=== PATIENT | female | born 1950 | race Caucasian/White ===

== ENCOUNTER 2016-10-13 14:51 | Observation (INO) | payer OTHER ==
[~2016-10-13] VITALS: Ht 172.7 cm; Wt 105.4 kg
[~2016-10-13 14:51] MED LIST: ARIP2TAB3 PO; ASPI325T45 PO; ATOR80TA PO; CLC100X PO; CLON0.5T3 PO; FAMO40TA6 PO; GABA600T PO; GLC/500 PO; ISOS30TA3 PO; LAMO100T16 PO; LAMO25TA PO; LEVO88TA PO; LISI2.5T5 PO; LSX40 PO; METO50TA7 PO; MRPSR30 PO; OXYC-609 PO; POTA10TA32 PO; TRAZ100T29 PO; VENL150C PO; VENL75CA PO; VNTHFA/IN INH
[2016-10-13] MEDS ORDERED: SODIUM CHLORIDE 0.9% 1000ML 250 ML IV STA (15:02)
[2016-10-13] MEDS ORDERED: SODIUM CHLORIDE 0.9% 1000ML 1,000 ML IV STA (15:02)
[2016-10-13] MEDS ORDERED: ALUMINUM/MAGNESIUM SUSP 30 ML UDC PO STA (15:07)
[2016-10-13] MEDS ORDERED: ASPI81TA28 PO (15:27)
[2016-10-13] MEDS ORDERED: CANA1TAB PO (15:27)
[2016-10-13] MEDS ORDERED: DOCU-94 PO (15:27)
[2016-10-13] MEDS ORDERED: FURO40TA3 PO (15:27)
[2016-10-13] MEDS ORDERED: LAMO25TA PO (15:27)
--- NOTE | 2016-10-13 15:30 | EMERGENCY ROOM VISIT NOTE ---
History Report prepared by Sandra: Maryjane Garcia Under the Supervision of: Dr. Vincent Xiong M.D. First contact with patient: 14:58 Chief Complaint: CARDIAC ASSESSMENT Stated Complaint: NAUSEA,CHEST PAIN,DIZZINESS,LEFT ARM PAIN History of Present Illness The patient is a 66 year old female who presents to the Emergency Room for a cardiac assessment. The patient states that she started feeling unwell yesterday. She became nauseated and lightheaded and has been feeling generally weak. She reports a headache as well. About 45 minutes ago she developed chest pain that radiates down her left arm. She describes her pain as achy and rates it as a 6/10 in severity. The patient denies any modifying factors. She has slight shortness of breath. The patient denies fever, vomiting, diarrhea, black or bloody stools, and recent trauma or injury. She has a significant cardiac history and states that her current pain feels similar to her previous cardiac issues. The patient has a history of reflux, but states that her pain does not feel like her typical reflux. She has not taken anything for her pain, but took a Zofran [employer]. She takes a daily aspirin, but denies any other blood thinners. The patient has a history of anxiety and states that she is feeling really anxious at this time. She takes 0.5mg of Klonopin BID for her anxiety and took it this morning. Source of History: patient Onset: 45 minutes [employer] Position: chest Symptom Intensity: 6/10 Quality: ache Timing: constant Modifying Factors (Relieving): anti-emetics Associated Symptoms: + SOB, + headache, + nausea, + numbness (/lightheaded) , No diarrhea, No fevers, No hematochezia, No melena, No vomiting Review of Systems See HPI for pertinent positives & negatives. A total of 10 systems reviewed and were otherwise negative. Past Medical & Surgical Medical Problems: (1) Bipolar disorder (2) Uzgoyjh-Lzwtt-Qvphq disease (3) Chest pain (4) Chronic back pain (5) Chronic nonalcoholic liver disease (6) Coronary artery disease (7) Deep venous thrombosis (8) Depression (9) Diabetes mellitus type 2 (10) Dyslipidemia (11) Essential hypertension (12) Gastroesophageal reflux disease (13) Hypothyroidism (14) Nausea (15) OCD (obsessive compulsive disorder) Surgical Problems: (1) H/O colonoscopy (2) History of back surgery (3) History of hysterectomy (4) Hx of CABG (5) Hx of cardiac cath (6) S/P appendectomy (7) S/P cholecystectomy (8) S/P CARLOS-BSO (9) S/P total knee arthroplasty Old medical records were reviewed. Nurse's notes were reviewed and I agree with. Family History Diabetes mellitus FHx: cancer FHx: gallbladder disease FHx: heart disease Hypertension Social History Smoking Status: Never Smoker Alcohol Use: none Drug Use: none Marital Status: Housing Status: lives alone Occupation Status: disabled Current/Historical Medications Scheduled Aripiprazole (Abilify), 2 MG PO DAILY Aspirin (Aspirin Ec), 81 MG PO DAILY Atorvastatin Calcium (Lipitor), 80 MG PO QPM Canagliflozin (Invokana), 100 MG PO DAILY Clonazepam (Klonopin), 0.5 MG PO BID Ergocalciferol (Vitamin D), 1 CAP PO WK Famotidine (Pepcid), 40 MG PO HS Gabapentin (Neurontin), 600 MG PO BID Isosorbide Mononitrate Ext Rel (Imdur Ext Rel), 30 MG PO QAM Lactulose (Encephalopathy) (Lactulose), 30 ML PO BID Lamotrigine (Lamictal), 100 MG PO QAM Lamotrigine (Lamictal), 25 MG PO QAM Levothyroxine Sodium (Synthroid), 88 MCG PO QAM Lisinopril (Lisinopril), 2.5 MG PO QAM Metformin Hcl (Glucophage), 500 MG PO BIDM Metoprolol Succ (Toprol Xl) (Toprol-Xl), 50 MG PO QAM Morphine Sulfate (Morphine Sulfate ER), 30 MG PO Q12 Nitroglycerin (Nitrostat), 1 TAB SL UD Omeprazole (Omeprazole), 1 TAB PO BID Trazodone Hcl (Trazodone), 150 MG PO HS Venlafaxine Hcl (Effexor Xr), 75 MG PO QAM Venlafaxine Hcl (Effexor Xr), 150 MG PO QAM Scheduled PRN Albuterol Hfa (Ventolin Hfa), 2 PUFFS INH QID PRN for SOB/Wheezing Dicyclomine HCl (Dicyclomine HCl), 1 CAP PO QID PRN for abdominal pain Furosemide (Lasix), 40 MG PO DAILY PRN for swelling Ondansetron Odt (Zofran Odt), 8 MG SL Q8 PRN for Nausea or Vomiting Oxycodone HCl (Oxycodone HCl), 5 MG PO Q6H PRN for severe pain Allergies Coded Allergies: Fentanyl (Verified Allergy, Unknown, ., 10/13/16) Zolpidem (Verified Adverse Reaction, Intermediate, confusion, 10/13/16) Methocarbamol (Verified Adverse Reaction, Mild, DELERIUM, 10/13/16) Propoxyphene (Verified Adverse Reaction, Mild, N&V, 10/13/16) Physical Exam Vital Signs Date Time Temp Pulse Resp B/P Pulse Ox O2 Delivery O2 Flow Rate FiO2 10/13/16 18:42 70 20 109/76 96 Room Air 10/13/16 16:55 71 20 128/64 96 Room Air 10/13/16 15:16 69 10/13/16 14:55 36.6 74 16 122/71 96 Room Air Physical Exam General: Well developed well nourished non-ill appearing older female in no acute distress, breathing comfortably on room air. Normal speech HEENT: Normal cephalic atraumatic. Pupils are equal round and reactive to light. Extraocular movements are intact. Oropharynx is pink with moist mucous membranes. No swelling of the mouth lips or tongue. Neck: Supple with a midline trachea. No meningeal signs or stiffness, no JVD or bruits. No Stridor. Chest: Clear to auscultation bilaterally. No wheezes or rhonchi. No increased work of breathing. Heart: regular rate and rhythm. Abdomen: Soft mild tenderness in the epigastric area, nondistended without rebound guarding or rigidity. Extremities: No cyanosis clubbing or edema. No calf tenderness or assymetry. Lower extremities have bilateral braces from CMT. Spine/Back. Non tender to palpation. No CVA tenderness Skin: Good turgor without rashes. Neurologic exam: Cranial nerves two through 12 are intact. Motor and sensation are intact and symmetrical throughout. Medical Decision & Procedures ER Provider Diagnostic Interpretation: A repeat ECG as interpreted by myself reveals a normal sinus rhythm at 69, no acute ischemic changes, no ectopy, no change from earlier ECG. Radiology results as stated below per my review and radiologist interpretation: CHEST ONE VIEW PORTABLE HISTORY: Atypical CHEST PAIN COMPARISON: Chest 02/04/2016. FINDINGS: Poststernotomy changes. The lungs are clear. Mild elevation of the right hemidiaphragm, unchanged. The heart is normal in size. No pleural effusions. No pneumothorax. No evidence for pulmonary edema. Cholecystectomy. IMPRESSION: No significant change compared to the prior study. No acute process. Electronically signed by: Marquez Lindsay M.D. 10/13/2016 4:11 PM Dictated Date/Time: 10/13/2016 4:10 PM Laboratory Results 10/13/16 15:30 Red Blood Count 4.99, Mean Corpuscular Volume 75.6, Mean Corpuscular Hemoglobin 24.2, Mean Corpuscular Hemoglobin Concent 32.1, Mean Platelet Volume 10.0, Neutrophils (%) (Auto) 53.6, Lymphocytes (%) (Auto) 32.6, Monocytes (%) (Auto) 8.4, Eosinophils (%) (Auto) 4.0, Basophils (%) (Auto) 0.9, Neutrophils # (Auto) 3.51, Lymphocytes # (Auto) 2.13, Monocytes # (Auto) 0.55, Eosinophils # (Auto) 0.26, Basophils # (Auto) 0.06 10/13/16 15:30 Test 10/13/16 15:30 10/13/16 15:33 White Blood Count 6.54 K/uL (4.8-10.8) Red Blood Count 4.99 M/uL (4.2-5.4) Hemoglobin 12.1 g/dL (12.0-16.0) Hematocrit 37.7 % (37-47) Mean Corpuscular Volume 75.6 fL (80-100) Mean Corpuscular Hemoglobin 24.2 pg (25-34) Mean Corpuscular Hemoglobin Concent 32.1 g/dl (32-36) Platelet Count 123 K/uL (130-400) Mean Platelet Volume 10.0 fL (7.4-10.4) Neutrophils (%) (Auto) 53.6 % Lymphocytes (%) (Auto) 32.6 % Monocytes (%) (Auto) 8.4 % Eosinophils (%) (Auto) 4.0 % Basophils (%) (Auto) 0.9 % Neutrophils # (Auto) 3.51 K/uL (1.4-6.5) Lymphocytes # (Auto) 2.13 K/uL (1.2-3.4) Monocytes # (Auto) 0.55 K/uL (0.11-0.59) Eosinophils # (Auto) 0.26 K/uL (0-0.5) Basophils # (Auto) 0.06 K/uL (0-0.2) RDW Standard Deviation 44.2 fL (36.4-46.3) RDW Coefficient of Variation 16.0 % (11.5-14.5) Immature Granulocyte % (Auto) 0.5 % Immature Granulocyte # (Auto) 0.03 K/uL (0.00-0.02) Prothrombin Time 11.3 SECONDS (9.0-12.0) Prothromb Time International Ratio 1.1 (0.9-1.1) Activated Partial Thromboplast Time 24.2 SECONDS (21.0-31.0) Partial Thromboplastin Ratio 0.9 Anion Gap 12.0 mmol/L (3-11) Est Creatinine Clear Calc Drug Dose 79.3 ml/min Estimated GFR () 77.7 Estimated GFR (Non- 67.1 BUN/Creatinine Ratio 14.4 (10-20) Calcium Level 8.6 mg/dl (8.5-10.1) Total Bilirubin 0.5 mg/dl (0.2-1) Direct Bilirubin mg/dl (0-0.2) Aspartate Amino Transf (AST/SGOT) 28 U/L (15-37) Alanine Aminotransferase (ALT/SGPT) 19 U/L (12-78) Alkaline Phosphatase 95 U/L (45-117) Total Protein 7.0 gm/dl (6.4-8.2) Albumin 3.6 gm/dl (3.4-5.0) Lipase 526 U/L (73-393) Chemistry Specimen Hemolysis Bedside Troponin I 0.000 ng/ml (0-0.045) Laboratory studies as stated above per my review. Medications Administered Medications (Trade) Dose Ordered Sig/Natalya Route Start Time Stop Time Status Last Admin Dose Admin Sodium Chloride 250 ml @ 999 mls/hr Q16M STAT IV 10/13/16 15:02 10/13/16 15:17 DC 10/13/16 15:19 999 MLS/HR Sodium Chloride (Nss 1000ml) 1,000 ml @ 100 mls/hr Q10H STAT IV 10/13/16 15:02 10/13/16 21:05 DC 10/13/16 15:19 100 MLS/HR Al Hydroxide/Mg Hydroxide (Maalox Susp) 30 ml NOW STAT PO 10/13/16 15:07 10/13/16 15:09 DC 10/13/16 15:19 30 ML Ondansetron HCl (Zofran Inj) 4 mg NOW STAT IV 10/13/16 16:39 10/13/16 16:40 DC 10/13/16 16:50 4 MG Nitroglycerin (Nitrostat Tab) 0.4 mg NOW STAT SL 10/13/16 16:59 10/13/16 17:00 DC 10/13/16 17:14 0.4 MG ECG Indication: chest pain Rate (beats per minute): 68 Rhythm: normal sinus Findings: no acute ischemic change, no ectopy Comparison ECG Date: 02/05/16 Change: no significant change ED Course 1458: Past medical records reviewed. The patient was evaluated in room B2, and a complete history and physical examination were performed. 1502: NSS 1000 ml @ 100 mls/hr IV, NSS 250 ml @ 999 mls/hr IV 1507: Maalox Susp 30 ml PO 1545: I reassessed the patient at this time. She is feeling better. 1639: Zofran 4 mg IV 1656: I reassessed the patient at this time. She is still having 5/10 chest pain with no change with the GI cocktail. I ordered nitro and a repeat ECG. She took her aspirin already today. 1659: Nitroglycerin 0.4 mg SL 1725: The patient is feeling better after nitro. I discussed the results and treatment plan with the patient. I answered all pertaining questions that she had. She expressed understanding and verbalized agreement. 1732: I spoke with Dr. Mo. We discussed the patients results and treatment plan. The patient will be evaluated by the [facility] for further management. Medical Decision Differential diagnoses includes acute coronary syndrome, GERD, musculoskeletal, electrolyte or metabolic abnormality. This patient comes in as described above. She has some vague symptoms of feeling dizzy. She also has some chest pain. She is feeling a lot better. EKG was obtained does not show acute coronary syndrome or arrhythmia. Chest x- ray was unremarkable. She has no acute electrolyte or metabolic abnormalities. She was given Maalox. She appears comfortable. Her troponin is not elevated. I did reassess her after the Maalox she had no change she did not appear uncomfortable however. She did take aspirin earlier today prior to arrival and was thus not given another aspirin. I did give her nitroglycerin subungual 1 and her pain seemed to dissipate completely. A second EKG was obtained and does not show any acute coronary syndrome or any acute changes compared to EKG #1. Chest x-ray does not show congestive heart failure pneumonia or pneumothorax. She's had no acute electrolyte or metabolic abnormalities. She does have a significant cardiac history with having 9 stents in the past and I do think she needs to be ruled out for an acute coronary syndrome or cardiac event. I have consulted the [facility] hospitalist group and they saw her in the ER and will admit her for these measures. Consults Time Called: 1728 Consulting Physician: Dr. Mo Returned Call: [address] Mo. We discussed the patients results and treatment plan. [facility] Impression Primary Impression: Precordial chest pain Additional Impression: Unstable angina Scribe Attestation The scribe's documentation has been prepared under my direction and personally reviewed by me in its entirety. I confirm that the note above accurately reflects all work, treatment, procedures, and medical decision making performed by me. Departure Information Dispostion Being Evaluated By Hospitalist Referrals Alexis Dougherty, [place]. (PCP) Patient Instructions My [facility] Problem Qualifiers
[2016-10-13 15:44] LABS: BASO % 0.9 %; BASO ABS # 0.06 K/uL (0-0.2); COMPLETE YES; HEMATOCRIT 37.7 % (37-47); IG% 0.5 %; LYMPH % 32.6 %; LYMPH ABS # 2.13 K/uL (1.2-3.4); MEAN CELL VOLUME 75.6 fL (80-100); MEAN CORPUSCULAR HEMOGLOBIN 24.2 pg (25-34); MEAN CORPUSCULAR HGB CONC 32.1 g/dl (32-36); MONO % 8.4 %; NEUT % 53.6 %; PLATELET COUNT 123 K/uL (130-400); RED BLOOD COUNT 4.99 M/uL (4.2-5.4); WHITE BLOOD COUNT 6.54 K/uL (4.8-10.8)
[2016-10-13 15:54] LABS: INR 1.1 (0.9-1.1); PARTIAL THROMBOPLASTIN RATIO 0.9; PROTHROMBIN TIME (PATIENT) 11.3 SECONDS (9.0-12.0)
--- NOTE | 2016-10-13 16:13 | DIAGNOSTIC IMAGING REPORT ---
CHEST ONE VIEW PORTABLE HISTORY: Atypical CHEST PAIN COMPARISON: Chest 02/04/2016. FINDINGS: Poststernotomy changes. The lungs are clear. Mild elevation of the right hemidiaphragm, unchanged. The heart is normal in size. No pleural effusions. No pneumothorax. No evidence for pulmonary edema. Cholecystectomy. IMPRESSION: No significant change compared to the prior study. No acute process. Electronically signed by: Marquez Lindsay M.D. 10/13/2016 4:11 PM Dictated Date/Time: 10/13/2016 4:10 PM
[2016-10-13 16:35] LABS: ALKALINE PHOSPHATASE 95 U/L (45-117); ALT/SGPT 19 U/L (12-78); AST/SGOT 28 U/L (15-37); BLOOD UREA NITROGEN 13 mg/dl (7-18); BUN/CREATININE RATIO 14.4 (10-20); CALCIUM 8.6 mg/dl (8.5-10.1); CARBON DIOXIDE 24 mmol/L (21-32); CHLORIDE 100 mmol/L (98-107); CKMB/CK RATIO 1.3 (0-3.0); CREATININE 0.89 mg/dl (0.60-1.20); GLUCOSE 144 mg/dl (70-99); POTASSIUM 4.4 mmol/L (3.5-5.1); SODIUM 136 mmol/L (136-145)
[2016-10-13] MEDS ORDERED: ONDANSETRON INJ 2 MG/ML 2 ML VIAL IV STA (16:39)
[2016-10-13] MEDS ORDERED: NITROGLYCERIN 0.4 MG SL PER TAB CHARGE SL STA (16:59)
[2016-10-13] MEDS ORDERED: FUROSEMIDE 40 MG TAB PO PRN (18:45)
[2016-10-13] MEDS ORDERED: OXYCODONE HCL IR 5 MG TAB (IMMEDIATE RELEASE) PO PRN (18:45)
[2016-10-13] MEDS ORDERED: ALBUTEROL HFA 8 GM INHALER INH PRN (18:45)
[2016-10-13] MEDS ORDERED: DICYCLOMINE HCL 10 MG CAP PO PRN (18:45)
[2016-10-13] MEDS ORDERED: OMEP20TA PO (18:51)
[2016-10-13] MEDS ORDERED: VTMD PO (18:51)
[2016-10-13] MEDS ORDERED: LACT10SO30 PO (18:51)
[2016-10-13] MEDS ORDERED: BNT10 PO (18:51)
[2016-10-13] MEDS ORDERED: ONDA8TAB62 SL (18:51)
[2016-10-13] MEDS ORDERED: NTRGSL4 SL (18:51)
[2016-10-13] MEDS ORDERED: GLUCOSE 10 TABS/TUBE PO PRN (19:00)
[2016-10-13] MEDS ORDERED: GLUCOSE 40% GEL 15 GM TUBE PO PRN (19:00)
[2016-10-13] MEDS ORDERED: GLUCAGON FOR INJ 1 MG VIAL SQ PRN (19:00)
[2016-10-13] MEDS ORDERED: DEXTROSE 50% 50 ML SYR IV PRN (19:00)
--- NOTE | 2016-10-13 19:15 | History and Physical ---
History & Physical Date & Time of Service: Oct 13, 2016 at 18:59 Chief Complaint: Nausea,Chest Pain,Dizziness,Left Arm Pain Primary Care Physician: Alexis Dougherty D.ONik History of Present Illness Source: patient, family, clinic records, hospital records Patient is a 66 y/o female with a PMHx of CAD, Type 2 DM and other problems outlined below who presents for evaluation of headache and nausea. Patient states that she started to feel unwell yesterday. She notes a migrainous type headache this morning that was associated with nausea. She denies any vomiting. 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 She denies any focal weakness. She does endorse some chest pain that feels different than previous episodes of chest pain. She denies any SOB. She has chronic MONROE, which she attributes to her weight. She notes that 2-3 weeks ago she self medicated for what she thought was a UTI with some old Keflex she had at home. She notes that she is "prone to sepsis from these types of things". In the ED, vitals were stable. Labs were unremarkable. CXR and EKG were normal. Patient received nitroglycerin, Zofran, Maalox and IVF's. Patient notes that she is feeling better. Past Medical/Surgical History Medical Problems: (1) Bipolar disorder Status: Chronic (2) Lontyna-Suvsa-Ckipk disease Status: Chronic (3) Chronic back pain Status: Chronic (4) Chronic nonalcoholic liver disease Status: Chronic (5) Coronary artery disease Status: Chronic (6) Deep venous thrombosis Status: Resolved (7) Depression Status: Chronic (8) Diabetes mellitus type 2 Status: Chronic (9) Dyslipidemia Status: Chronic (10) Essential hypertension Status: Chronic (11) Gastroesophageal reflux disease Status: Chronic (12) Hypothyroidism Status: Chronic (13) OCD (obsessive compulsive disorder) Status: Chronic Surgical Problems: (1) H/O colonoscopy Status: Chronic (2) History of back surgery Status: Chronic (3) History of hysterectomy Status: Chronic (4) Hx of CABG Status: Chronic (5) Hx of cardiac cath Status: Chronic (6) S/P appendectomy Status: Chronic (7) S/P cholecystectomy Status: Chronic (8) S/P CARLOS-BSO Status: Chronic (9) S/P total knee arthroplasty Status: Chronic Family History Diabetes mellitus FHx: cancer FHx: gallbladder disease FHx: heart disease Hypertension Social History Smoking Status: Never Smoker Drug Use: none Marital Status: Housing status: lives alone Occupational Status: disabled Immunizations History of Influenza Vaccine: Yes Influenza Vaccine Date: Apr 23, 2013 History of Tetanus Vaccine?: Unknown History of Pneumococcal: Unknown Pneumococcal Date: Jun 26, 2001 History of Hepatitis B Vaccine: Unknown Hepatitis Immunization Date: Oct 29, 2010 Allergies Coded Allergies: Fentanyl (Verified Allergy, Unknown, ., 10/13/16) Zolpidem (Verified Adverse Reaction, Intermediate, confusion, 10/13/16) Methocarbamol (Verified Adverse Reaction, Mild, DELERIUM, 10/13/16) Propoxyphene (Verified Adverse Reaction, Mild, N&V, 10/13/16) Home Medications Scheduled Aripiprazole (Abilify), 2 MG PO DAILY Aspirin (Aspirin Ec), 81 MG PO DAILY Atorvastatin Calcium (Lipitor), 80 MG PO QPM Canagliflozin (Invokana), 100 MG PO DAILY Clonazepam (Klonopin), 0.5 MG PO BID Ergocalciferol (Vitamin D), 1 CAP PO WK Famotidine (Pepcid), 40 MG PO HS Gabapentin (Neurontin), 600 MG PO BID Isosorbide Mononitrate Ext Rel (Imdur Ext Rel), 30 MG PO QAM Lactulose (Encephalopathy) (Lactulose), 30 ML PO BID Lamotrigine (Lamictal), 100 MG PO QAM Lamotrigine (Lamictal), 25 MG PO QAM Levothyroxine Sodium (Synthroid), 88 MCG PO QAM Lisinopril (Lisinopril), 2.5 MG PO QAM Metformin Hcl (Glucophage), 500 MG PO BIDM Metoprolol Succ (Toprol Xl) (Toprol-Xl), 50 MG PO QAM Morphine Sulfate (Morphine Sulfate ER), 30 MG PO Q12 Nitroglycerin (Nitrostat), 1 TAB SL UD Omeprazole (Omeprazole), 1 TAB PO BID Trazodone Hcl (Trazodone), 150 MG PO HS Venlafaxine Hcl (Effexor Xr), 75 MG PO QAM Venlafaxine Hcl (Effexor Xr), 150 MG PO QAM Scheduled PRN Albuterol Hfa (Ventolin Hfa), 2 PUFFS INH QID PRN for SOB/Wheezing Dicyclomine HCl (Dicyclomine HCl), 1 CAP PO QID PRN for abdominal pain Furosemide (Lasix), 40 MG PO DAILY PRN for swelling Ondansetron Odt (Zofran Odt), 8 MG SL Q8 PRN for Nausea or Vomiting Oxycodone HCl (Oxycodone HCl), 5 MG PO Q6H PRN for severe pain Review of Systems Constitutional- +headache; denies fevers or chills Eyes- denies sudden change in vision ENT- denies sore throat or congestion Pulmonary- denies SOB or cough Cardiac- +chest pain; denies palpitations GI- denies abdominal pain; +nausea; denies vomiting or diarrhea - +urinary incontinence; denies dysuria Musculoskeletal- +joint pain and swelling Dermatologic- denies rash or bruising Neuro- +numbness and tingling; denies focal weakness Psych- +depression/anxiety . Physical Exam Vital Signs Date Time Temp Pulse Resp B/P Pulse Ox O2 Delivery O2 Flow Rate FiO2 10/13/16 18:42 70 20 109/76 96 Room Air 10/13/16 16:55 71 20 128/64 96 Room Air 10/13/16 15:16 69 10/13/16 14:55 36.6 74 16 122/71 96 Room Air General- awake; alert; NAD Eyes- EOMI; no scleral icterus ENT- +dentures Neck- no stridor; trachea midline Lungs- CTA bilaterally; no wheezes/crackles Heart- RRR; no m/r/g Abdomen- soft; mild epigastric tenderness; nBS Back- no gross abnormalities Extremities- braces in place to bilateral lower legs Neuro- no focal deficits Skin- no appreciable rash or bruise . Diagnostics Laboratory Results Results Past 24 Hours Test 10/13/16 15:02 10/13/16 15:30 10/13/16 15:33 Range/Units Creatine Kinase MB Ratio 1.3 0-3.0 White Blood Count 6.54 4.8-10.8 K/uL Red Blood Count 4.99 4.2-5.4 M/uL Hemoglobin 12.1 12.0-16.0 g/dL Hematocrit 37.7 37-47 % Mean Corpuscular Volume 75.6 80-100 fL Mean Corpuscular Hemoglobin 24.2 25-34 pg Mean Corpuscular Hemoglobin Concent 32.1 32-36 g/dl Platelet Count 123 130-400 K/uL Mean Platelet Volume 10.0 7.4-10.4 fL Neutrophils (%) (Auto) 53.6 % Lymphocytes (%) (Auto) 32.6 % Monocytes (%) (Auto) 8.4 % Eosinophils (%) (Auto) 4.0 % Basophils (%) (Auto) 0.9 % Neutrophils # (Auto) 3.51 1.4-6.5 K/uL Lymphocytes # (Auto) 2.13 1.2-3.4 K/uL Monocytes # (Auto) 0.55 0.11-0.59 K/uL Eosinophils # (Auto) 0.26 0-0.5 K/uL Basophils # (Auto) 0.06 0-0.2 K/uL RDW Standard Deviation 44.2 36.4-46.3 fL RDW Coefficient of Variation 16.0 11.5-14.5 % Immature Granulocyte % (Auto) 0.5 % Immature Granulocyte # (Auto) 0.03 0.00-0.02 K/uL Prothrombin Time 11.3 9.0-12.0 SECONDS Prothromb Time International Ratio 1.1 0.9-1.1 Activated Partial Thromboplast Time 24.2 21.0-31.0 SECONDS Partial Thromboplastin Ratio 0.9 Sodium Level 136 136-145 mmol/L Potassium Level 4.4 3.5-5.1 mmol/L Chloride Level 100 98-107 mmol/L Carbon Dioxide Level 24 21-32 mmol/L Anion Gap 12.0 3-11 mmol/L Blood Urea Nitrogen 13 7-18 mg/dl Creatinine 0.89 0.60-1.20 mg/dl Est Creatinine Clear Calc Drug Dose 79.3 ml/min Estimated GFR () 77.7 Estimated GFR (Non- 67.1 BUN/Creatinine Ratio 14.4 10-20 Random Glucose 144 70-99 mg/dl Calcium Level 8.6 8.5-10.1 mg/dl Total Bilirubin 0.5 0.2-1 mg/dl Direct Bilirubin 0-0.2 mg/dl Aspartate Amino Transf (AST/SGOT) 28 15-37 U/L Alanine Aminotransferase (ALT/SGPT) 19 12-78 U/L Alkaline Phosphatase 95 45-117 U/L Total Creatine Kinase 78 26-192 U/L Creatine Kinase MB 1.0 0.5-3.6 ng/ml Total Protein 7.0 6.4-8.2 gm/dl Albumin 3.6 3.4-5.0 gm/dl Lipase 526 73-393 U/L Chemistry Specimen Hemolysis Bedside Troponin I 0.000 0-0.045 ng/ml CXR normal Normal EKG Impression Assessment and Plan Patient is a 66 y/o female with multiple medical problems who presents for evaluation of headache, nausea and chest pain. Headache/nausea - CT head pending - resolved in ED with medication cocktail received - continue Zofran PRN Atypical chest pain - trend cardiac enzymes - nuclear stress test in 02/2016 was negative - TTE in 02/2016 showed grade 2 diastolic dysfunction, pEF - continue lisinopril, ISMN, atorvastatin, metoprolol, aspirin for h/o CAD GERD - continue famotidine and pantoprazole - received dose of Maalox in the ED Hypothyroidism - continue levothyroxine GONZALEZ - continue lactulose - continue furosemide PRN Type 2 DM - hold oral agents - insulin while inpatient Chronic pain - continue morphine, oxycodone, gabapentin Bipolar d/o - continue venlafaxine, aripiprazole, clonazepam, trazodone, lamotrigine DVT prophylaxis with enoxaparin sq Anticipate discharge home VTE Prophylaxis VTE Risk Assessment Done? Y/N: Yes Risk Level: Moderate
--- NOTE | 2016-10-13 19:31 | DIAGNOSTIC IMAGING REPORT ---
HEAD CT NONCONTRAST CT DOSE: 601.98 mGy.cm HISTORY: headache, nausea TECHNIQUE: Multiaxial CT images of the head were performed without the use of intravenous contrast. Automated exposure control was utilized for this study. Comparison: Head CT 10/12/2015. Findings: The paranasal sinuses and mastoid air cells are clear. The calvarium and skull base are intact. The ventricles and sulci are within normal limits. There is no mass, hematoma, midline shift, or acute infarct. Old lacunar infarct seen within the right thalamus. Impression: No acute intracranial abnormality. Old lacunar infarct within the right thalamus. Electronically signed by: Marquez Lindsay M.D. 10/13/2016 7:29 PM Dictated Date/Time: 10/13/2016 7:21 PM
[2016-10-13 19:40] VITALS: Ht 172.7 cm; Wt 105.4 kg
[2016-10-13 20:38] VITALS: BP 138/72; PULSE 72; TEMP 36.9; O2SAT 95
[2016-10-13] MEDS ORDERED: IV FLUIDS COMPLETED PRN (20:45)
[2016-10-13] MEDS: LACTULOSE SYRUP 10 GM/15 ML BTL 473 ML PO SCH ×2 (21:00→21:32)
[2016-10-13] MEDS ORDERED: ATORVASTATIN 40 MG TAB PO SCH (21:00)
[2016-10-13] MEDS ORDERED: TRAZODONE HCL 100 MG TAB PO SCH (21:00)
[2016-10-13] MEDS ORDERED: FAMOTIDINE 20 MG TAB PO SCH (21:00)
[2016-10-13] MEDS ORDERED: MORPHINE SULFATE IR 30 MG PO SCH (21:00)
[2016-10-13] MEDS: INSULIN ASPART 100 UNITS/ML 3 ML PEN SC SCH (21:00)
[2016-10-13] MEDS: CLONAZEPAM 0.5 MG TAB PO SCH (21:31)
[2016-10-13] MEDS: PANTOprazole SOD 40 MG TAB PO SCH (21:34)
[2016-10-13] MEDS: GABAPENTIN 600 MG TAB PO SCH (21:36)
[2016-10-13] MEDS ORDERED: MoRPHine SULFATE IR 15 MG TAB (IMMEDIATE RELEASE) PO STA (21:37)
[2016-10-13] MEDS ORDERED: ENOXAPARIN 40 MG/0.4 ML SYR SC SCH (22:00)
[2016-10-13 22:07] LABS: CKMB/CK RATIO 1.9 (0-3.0)
[2016-10-14] VITALS: BP 119/74; PULSE 74; TEMP 36.6; O2SAT 94
[2016-10-14] MEDS: ONDANSETRON INJ 2 MG/ML 2 ML VIAL IV PRN ×2 (02:11→08:02)
[2016-10-14 03:09] LABS: CKMB/CK RATIO 1.8 (0-3.0)
[2016-10-14] MEDS ORDERED: LEVOTHYROXINE 88 MCG TAB PO SCH (06:30)
[2016-10-14 07:46] VITALS: BP 121/77; PULSE 79; TEMP 36.6; O2SAT 94
[2016-10-14] MEDS: PANTOprazole SOD 40 MG TAB PO SCH (07:54)
[2016-10-14 08:00] VITALS: O2SAT 94
[2016-10-14] MEDS: CLONAZEPAM 0.5 MG TAB PO SCH (08:00)
[2016-10-14] MEDS: GABAPENTIN 600 MG TAB PO SCH (08:01)
[2016-10-14] MEDS: LACTULOSE SYRUP 10 GM/15 ML BTL 473 ML PO SCH (08:03)
[2016-10-14] MEDS: INSULIN ASPART 100 UNITS/ML 3 ML PEN SC SCH ×2 (08:23→12:24)
[2016-10-14] MEDS ORDERED: ISOSORBIDE MONONITRATE 30 MG TABCR PO SCH (09:00)
[2016-10-14] MEDS ORDERED: MoRPHine SULFATE IR 15 MG TAB (IMMEDIATE RELEASE) PO SCH (09:00)
[2016-10-14] MEDS ORDERED: VENLAFAXINE HCL XR 150 MG CAPXR PO SCH (09:00)
[2016-10-14] MEDS ORDERED: METOPROLOL SUCC 50MG EXT REL TAB PO SCH (09:00)
[2016-10-14] MEDS ORDERED: ASPIRIN 81 MG ECTAB PO SCH (09:00)
[2016-10-14] MEDS ORDERED: VENLAFAXINE HCL XR 75 MG CAPXR PO SCH (09:00)
[2016-10-14] MEDS ORDERED: ARIPIprazole 1 MG/ML ORAL SOLN 150 ML BTL PO SCH (09:00)
[2016-10-14] MEDS ORDERED: LISINOPRIL 2.5 MG TAB PO SCH (09:00)
[2016-10-14 11:01] LABS: URINE APPEARANCE CLEAR (CLEAR); URINE BILIRUBIN NEG (NEG); URINE COLOR YELLOW; URINE NITRITE NEG (NEG); URINE SPECIFIC GRAVITY 1.009 (1.000-1.030); UROBILINOGEN NEG (NEG)
[2016-10-14 11:05] LABS: MANUAL MICROSCOPIC REQUIRED? NO; REVIEW REQ? NO
[2016-10-14] MEDS ORDERED: KETOROLAC TROMETHAMINE 15 MG/ML VIAL IV. PRN (11:30)
[2016-10-14] MEDS ORDERED: ACETAMINOPHEN 650 MG SUPP PR PRN (11:30)
[2016-10-14 11:40] VITALS: BP 123/70; PULSE 83; TEMP 36.7; O2SAT 92
--- NOTE | 2016-10-14 12:51 | Discharge Instructions ---
Discharge Instructions Date of Service Oct 14, 2016. Admission Reason for Admission: Nausea Discharge Discharge Diagnosis / Problem: Headache, Nausea, Atypical chest pain Discharge Goals Goal(s): Decrease discomfort Activity Recommendations Activity Limitations: resume your previous activity . Instructions / Follow-Up Instructions / Follow-Up Please keep your scheduled follow up appointment with Family Medicine Dr. Dougherty on October 22 at 1:10pm. Please take your medications as prescribed. No changes were made. Current Hospital Diet Patient's current hospital diet: Diabetes Type 2 Diet, AHA Diet (Heart Healthy) Discharge Diet Recommended Diet: AHA Diet (Heart Healthy), Diabetes Type 2 Diet Pending Studies Studies pending at discharge: no Medical Emergencies . Who to Call and When: Medical Emergencies: If at any time you feel your situation is an emergency, please call 911 immediately. . Non-Emergent Contact Non-Emergency issues call your: Primary Care Provider . . "Provider Documentation" section prepared by Khloe Lozada. VTE Core Measure Inpt VTE Proph given/why not?: Enoxaparin (Lovenox)SQ
[2016-10-14 12:56] VITALS: BP 123/70; PULSE 83; TEMP 36.7; O2SAT 92
--- NOTE | 2016-10-14 17:54 | Discharge Summary ---
Discharge Summary Date of Service Oct 14, 2016. Discharge Summary Admission Date: Oct 13, 2016 at 18:42 Discharge Date: Oct 14, 2016 Discharge Disposition: Home Principal Diagnosis: Headache, nausea, atypical chest pain Medication Reconciliation Continued Medications: Albuterol Hfa (Ventolin Hfa) 200 Puffs/29261 Mcg Aers 2 PUFFS INH QID PRN for SOB/Wheezing, #1 Aripiprazole (Abilify) 2 Mg Tab 2 MG PO DAILY, TAB Aspirin (Aspirin Ec) 81 Mg Tab 81 MG PO DAILY Atorvastatin Calcium (Lipitor) 80 Mg Tab 80 MG PO QPM, TAB Canagliflozin (Invokana) 100 Mg Tab 100 MG PO DAILY daily with lunch Clonazepam (Klonopin) 0.5 Mg Tab 0.5 MG PO BID, TAB Dicyclomine HCl (Dicyclomine HCl) 10 Mg Cap 1 CAP PO QID PRN for abdominal pain Ergocalciferol (Vitamin D) 50,000 Interunit Cap 1 CAP PO WK Famotidine (Pepcid) 40 Mg Tab 40 MG PO HS, TAB Furosemide (Lasix) 40 Mg Tab 40 MG PO DAILY PRN for swelling, TAB Gabapentin (Neurontin) 600 Mg Tab 600 MG PO BID, TAB Isosorbide Mononitrate Ext Rel (Imdur Ext Rel) 30 Mg Ertab 30 MG PO QAM, TAB Lactulose (Encephalopathy) (Lactulose) 10 Gm/15 Ml [place] 30 ML PO BID Lamotrigine (Lamictal) 100 Mg Tab 100 MG PO QAM, TAB Lamotrigine (Lamictal) 25 Mg Tab 25 MG PO QAM, TAB along with 100mg tab to equal 125mg dose Levothyroxine Sodium (Synthroid) 88 Mcg Tab 88 MCG PO QAM, TAB Lisinopril (Lisinopril) 2.5 Mg Tab 2.5 MG PO QAM, TAB Metformin Hcl (Glucophage) 500 Mg Tab 500 MG PO BIDM, TAB Metoprolol Succ (Toprol Xl) (Toprol-Xl) 50 Mg Tabcr 50 MG PO QAM, TAB Morphine Sulfate (Morphine Sulfate ER) 30 Mg Tabcr 30 MG PO Q12 Nitroglycerin (Nitrostat) 0.4 Mg/1 Tab Subl 1 TAB SL UD Omeprazole (Omeprazole) 20 Mg Tab 1 TAB PO BID, TAB Ondansetron Odt (Zofran Odt) 8 Mg Soltab 8 MG SL Q8 PRN for Nausea or Vomiting, TAB Oxycodone HCl (Oxycodone HCl) 5 Mg Tab 5 MG PO Q6H PRN for severe pain for 7 Days Trazodone Hcl (Trazodone) 100 Mg Tab 150 MG PO HS, #20 Venlafaxine Hcl (Effexor Xr) 75 Mg Cap 75 MG PO QAM, CAP TAKE THIS MEDICATION WITH FOOD. DOSAGE IS 225MG DAILY Venlafaxine Hcl (Effexor Xr) 150 Mg Cap 150 MG PO QAM, CAP TAKE THIS MEDICATION WITH FOOD. dosage is 225 mg daily Admission Information HPI (per Admitting provider): Patient is a 66 y/o female with a PMHx of CAD, Type 2 DM and other problems outlined below who presents for evaluation of headache and nausea. Patient states that she started to feel unwell yesterday. She notes a migrainous type headache this morning that was associated with nausea. She denies any vomiting. 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 She denies any focal weakness. She does endorse some chest pain that feels different than previous episodes of chest pain. She denies any SOB. She has chronic MONROE, which she attributes to her weight. She notes that 2-3 weeks ago she self medicated for what she thought was a UTI with some old Keflex she had at home. She notes that she is "prone to sepsis from these types of things". In the ED, vitals were stable. Labs were unremarkable. CXR and EKG were normal. Patient received nitroglycerin, Zofran, Maalox and IVF's. Patient notes that she is feeling better. Physical Exam (per Admitting): General- awake; alert; NAD Eyes- EOMI; no scleral icterus ENT- +dentures Neck- no stridor; trachea midline Lungs- CTA bilaterally; no wheezes/crackles Heart- RRR; no m/r/g Abdomen- soft; mild epigastric tenderness; nBS Back- no gross abnormalities Extremities- braces in place to bilateral lower legs Neuro- no focal deficits Skin- no appreciable rash or bruise . Hospital Course Patient was admitted to telemetry for headache, nausea and atypical chest pain. There were no events on telemetry. Vitals remained stable. CXR was unremarkable. 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 ACS r/o was negative. Patient had a TTE and nuclear stress test in February 2016 that were negative for ischemia. Labs were all unremarkable. Patient tolerated diet. No changes were made to home medications. Patient deemed stable for discharge with Family Medicine follow up. PE on discharge: General- awake; alert; NAD Eyes- EOMI; no scleral icterus Neck- no stridor; trachea midline Lungs- CTA bilaterally; no wheezes/crackles Heart- RRR; no m/r/g Abdomen- soft; NTND; nBS Back- no gross abnormalities Extremities- +braces to bilateral lower extremities Neuro- no focal deficits Skin- no appreciable rash or bruise . Total time spent on discharge = This includes examination of the patient, discharge planning, medication reconciliation, and communication with other providers. Discharge Instructions Discharge Instructions Date of Service Oct 14, 2016. Admission Reason for Admission: Nausea Discharge Discharge Diagnosis / Problem: Headache, Nausea, Atypical chest pain Discharge Goals Goal(s): Decrease discomfort Activity Recommendations Activity Limitations: resume your previous activity . Instructions / Follow-Up Instructions / Follow-Up Please keep your scheduled follow up appointment with Family Medicine Dr. Dougherty on October 22 at 1:10pm. Please take your medications as prescribed. No changes were made. Current Hospital Diet Patient's current hospital diet: Diabetes Type 2 Diet, AHA Diet (Heart Healthy) Discharge Diet Recommended Diet: AHA Diet (Heart Healthy), Diabetes Type 2 Diet Pending Studies Studies pending at discharge: no Medical Emergencies . Who to Call and When: Medical Emergencies: If at any time you feel your situation is an emergency, please call 911 immediately. . Non-Emergent Contact Non-Emergency issues call your: Primary Care Provider . . "Provider Documentation" section prepared by Khloe Lozada. VTE Core Measure Inpt VTE Proph given/why not?: Enoxaparin (Lovenox)SQ Additional Copies To Alexis Dougherty, [place].
[2016-12-25] MEDS ORDERED: VITAMIN D PO (08:41)
[2016-12-25] MEDS ORDERED: TRAZ50TA35 PO (08:41)
[2016-12-25] MEDS ORDERED: OXYC1TAB3 PO (08:41)
[2016-12-25] MEDS ORDERED: DOCU100C31 PO (08:41)
[2016-12-25] MEDS ORDERED: VNTHFA/IN INH (08:41)
[2016-12-25] MEDS ORDERED: LAMO25TA PO (08:43)
[2016-12-25] MEDS ORDERED: ASPI81TA28 PO (08:43)
[2017-02-07] MEDS ORDERED: LACT10SO30 PO (12:49)
== END 2016-10-14 13:21 | disposition home or self-care (01) ==
LOC: ENRESERVDT → ENRESERVTM → C.EDB 14:53 → C.MED 18:42
PROVIDERS: ADMIT Internal Medicine; ATTEND Internal Medicine
DX: R51 Headache (principal); R11.0 Nausea; R07.89 Other chest pain; I25.10 Atherosclerotic heart disease of native coronary artery without angina pectoris; E11.9 Type 2 diabetes mellitus without complications; Z83.3 Family history of diabetes mellitus; Z82.49 Family history of ischemic heart disease and other diseases of the circulatory system; Z79.82 Long term (current) use of aspirin; Z79.899 Other long term (current) drug therapy

== ENCOUNTER 2017-02-01 14:08 | Inpatient (IN) | payer OTHER ==
[~2017-02-01] VITALS: Ht 172.7 cm; Wt 102.1 kg
[~2017-02-01 14:08] MED LIST changes: -ASPI325T45 PO; +ASPI81TA28 PO; +BNT10 PO; +CANA1TAB PO; -CLC100X PO; +DOCU100C31 PO; +FURO40TA3 PO; +LACT10SO30 PO; -LSX40 PO; +NTRGSL4 SL; +OMEP20TA PO; +ONDA8TAB62 SL; -OXYC-609 PO; +OXYC1TAB3 PO; -POTA10TA32 PO; -TRAZ100T29 PO; +TRAZ50TA35 PO; +VITAMIN D PO
[2017-02-01] MEDS ORDERED: ONDANSETRON INJ 2 MG/ML 2 ML VIAL IV STA (14:32)
[2017-02-01] MEDS ORDERED: SODIUM CHLORIDE 0.9% 1000ML 1,000 ML IV STA (14:32)
[2017-02-01 14:42] LABS: BASO % 0.8 %; BASO ABS # 0.05 K/uL (0-0.2); COMPLETE YES; EOS % 4.4 %; HEMATOCRIT 39.3 % (37-47); IG% 0.3 %; LYMPH % 34.6 %; LYMPH ABS # 2.05 K/uL (1.2-3.4); MEAN CELL VOLUME 77.1 fL (80-100); MEAN CORPUSCULAR HEMOGLOBIN 23.7 pg (25-34); MEAN CORPUSCULAR HGB CONC 30.8 g/dl (32-36); MEAN PLATELET VOLUME 10.5 fL (7.4-10.4); MONO % 10.3 %; NEUT % 49.6 %; PLATELET COUNT 131 K/uL (130-400); WHITE BLOOD COUNT 5.93 K/uL (4.8-10.8)
--- NOTE | 2017-02-01 14:45 | EMERGENCY ROOM VISIT NOTE ---
History Report prepared by Sandra: Allyson Mann Under the Supervision of: Dr. Venkat Guerrero D.O. First contact with patient: 14:20 Chief Complaint: CONFUSION Stated Complaint: CONFUSION,NAUSEA,LIGHTHEADED,PAIN History of Present Illness The patient is a 66 year old female who presents to the Emergency Room with complaints of persistent confusion starting yesterday. The patient's caregiver says that she has been confused and not remembering things. She has been complaining of headache and dizziness starting yesterday which worsened today. She reports nausea and abdominal pain which goes up into her chest. She denies any increased swelling of the legs or cough. She has been eating and drinking normally. She has had these symptoms before on several occasions which has sometimes led to a diagnosis of sepsis. She currently has a UTI and is on Cipro. She denies starting any new medications. She is on pain medications for her back pain. She denies starting any new pain medications. She states that she is trying to take her medications as directed. Source of History: patient, caregiver Onset: yesterday Position: other (global) Quality: other (confusion) Timing: other (persistent) Associated Symptoms: + headache, + chest pain, + nausea, + abdominal pain, No cough Note: Pt reports dizziness. Pt denies increased swelling in legs. Review of Systems See HPI for pertinent positives & negatives. A total of 10 systems reviewed and were otherwise negative. Past Medical & Surgical Medical Problems: (1) Bipolar disorder (2) Lgcxkyt-Cyosh-Cbrvs disease (3) Chest pain (4) Chronic back pain (5) Chronic nonalcoholic liver disease (6) Coronary artery disease (7) Deep venous thrombosis (8) Depression (9) Diabetes mellitus type 2 (10) Dyslipidemia (11) Essential hypertension (12) Gastroesophageal reflux disease (13) Hypothyroidism (14) Nausea (15) OCD (obsessive compulsive disorder) Surgical Problems: (1) H/O colonoscopy (2) History of back surgery (3) History of hysterectomy (4) Hx of CABG (5) Hx of cardiac cath (6) S/P appendectomy (7) S/P cholecystectomy (8) S/P CARLOS-BSO (9) S/P total knee arthroplasty Family History Diabetes mellitus FHx: cancer FHx: gallbladder disease FHx: heart disease Hypertension Social History Smoking Status: Unknown if Ever Smoked Alcohol Use: none Drug Use: none Marital Status: Housing Status: lives alone Occupation Status: disabled Current/Historical Medications Scheduled Albuterol Hfa (Ventolin Hfa), 2 PUFFS INH Q6H Aripiprazole (Abilify), 2 MG PO QPM Aspirin (Aspirin Ec), 81 MG PO QAM Atorvastatin Calcium (Lipitor), 80 MG PO QPM Canagliflozin (Invokana), 100 MG PO QAM Clonazepam (Klonopin), 0.5 MG PO BID Docusate Sodium (Docusate Sodium), 1 CAP PO QAM Famotidine (Pepcid), 40 MG PO HS Furosemide (Furosemide), 20 MG PO DAILY Gabapentin (Neurontin), 600 MG PO BID Hydroxyzine Pamoate (Vistaril), 25 MG PO BID Isosorbide Mononitrate Ext Rel (Imdur Ext Rel), 30 MG PO QAM Lactulose (Encephalopathy) (Lactulose), 30 ML PO Q2D Lamotrigine (Lamictal), 100 MG PO QAM Lamotrigine (Lamictal), 25 MG PO QAM Lamotrigine (Lamictal), 50 MG PO HS Levothyroxine Sodium (Synthroid), 88 MCG PO QAM Lisinopril (Lisinopril), 2.5 MG PO QAM Metformin Hcl (Glucophage), 1,000 MG PO BIDM Metoprolol Succ (Toprol Xl) (Toprol-Xl), 75 MG PO QAM Morphine Sulfate (Morphine Sulfate ER), 30 MG PO Q12 Nitroglycerin (Nitrostat), 1 TAB SL UD Omeprazole (Omeprazole), 1 TAB PO BID Trazodone Hcl (Trazodone), 150 MG PO HS Venlafaxine Hcl (Effexor Xr), 75 MG PO QAM Venlafaxine Hcl (Effexor Xr), 150 MG PO QAM Scheduled PRN Dicyclomine HCl (Dicyclomine HCl), 1 CAP PO QID PRN for abdominal pain Ondansetron Odt (Zofran Odt), 8 MG SL Q8 PRN for Nausea or Vomiting Oxycodone Ir (Roxicodone Ir), 5 MG PO BID PRN for Severe Pain Allergies Coded Allergies: Fentanyl (Verified Allergy, Unknown, PANIC WANTS TO RUN AND AGGRESSIVE, ) Zolpidem (Verified Adverse Reaction, Intermediate, confusion, 12/25/16) Methocarbamol (Verified Adverse Reaction, Mild, DELERIUM, 12/25/16) Propoxyphene (Verified Adverse Reaction, Mild, N&V, 12/25/16) Physical Exam Vital Signs Date Time Temp Pulse Resp B/P (MAP) Pulse Ox O2 Delivery O2 Flow Rate FiO2 02/01/17 18:16 64 18 107/64 96 Room Air 02/01/17 16:12 70 18 128/74 94 Room Air 02/01/17 14:27 95 Room Air 02/01/17 14:27 75 02/01/17 14:14 37.0 79 20 108/73 96 Room Air Physical Exam GENERAL: Patient is awake, alert, and in no acute distress. Patient is resting comfortably and showing no signs of anxiety EYES: The conjunctivae are clear. The pupils are round and reactive. EARS, NOSE, MOUTH AND THROAT: The nose is without any evidence of any deformity. Mucous membranes are dry tongue is midline NECK: The neck is nontender and supple. RESPIRATORY: Normal respiratory effort is noted there is no evidence of wheezing rhonchi or rales CARDIOVASCULAR: Regular rate and rhythm noted to auscultation, systolic murmur suggested. GASTROINTESTINAL: The abdomen is soft. Bowel sounds are present in all quadrants. Abdomen is nontender MUSCULOSKELETAL/EXTREMITIES: There is no evidence of gross deformity full range of motion is noted in the hips and shoulders SKIN: There is pedal edema bilaterally. NEUROLOGIC: Patient is awake alert and oriented to person and place but not time. Strength is symmetric, but diminished. Medical Decision & Procedures ER Provider Diagnostic Interpretation: X-ray results as stated below per interpretation by me and the radiologist. Radiology results as stated below per my review and radiologist interpretation: CHEST ONE VIEW PORTABLE CLINICAL HISTORY: Abdominal pain. COMPARISON STUDY: Chest radiograph October 13, 2016. FINDINGS: Elevation of the right hemidiaphragm is unchanged. There are median sternotomy wires. Cardiomediastinal silhouette is normal. There is no evidence of pulmonary edema. No consolidation is identified to suggest pneumonia. IMPRESSION: No acute cardiopulmonary findings. Electronically signed by: Mu Bonds M.D. 02/01/2017 3:25 PM Dictated Date/Time: 02/01/2017 3:[address] OF THE ABDOMEN AND PELVIS WITHOUT CONTRAST CLINICAL HISTORY: Confusion. Pain. Nausea. Recent urinary tract infection. COMPARISON STUDY: CT of the abdomen and pelvis October 13, 2015. TECHNIQUE: Axial images of the abdomen and pelvis were obtained without IV contrast. Images were reviewed in the axial, sagittal, and coronal planes. A dose lowering technique was utilized adhering to the principles of ALARA. FINDINGS: No renal, ureteral or bladder calculi are identified. Evaluation of the remainder of the abdomen and pelvis is suboptimal on this unenhanced exam. Mild splenomegaly is unchanged. There is no biliary ductal dilatation status post cholecystectomy. Unenhanced images of the liver, adrenal glands, kidneys and pancreas are unremarkable. There is no evidence for a bowel obstruction. The appendix is not visualized. There is a moderate amount of stool within the colon and rectum. Postoperative findings within the lumbar spine are suboptimally assessed by CT. No suspicious osseous lesion is present. There is no ascites or abscess. No lymphadenopathy is present. IMPRESSION: 1. No urinary calculi or hydronephrosis. 2. No acute process within the abdomen or pelvis on unenhanced exam. 3. Stable mild splenomegaly. Electronically signed by: Mu Bonds M.D. 02/01/2017 5:14 PM Dictated Date/Time: 02/01/2017 5:[address] OF THE HEAD WITHOUT CONTRAST CLINICAL HISTORY: Confusion. COMPARISON STUDY: Head CT October 13, 2016. CT DOSE: 767.83 mGy.cm TECHNIQUE: Helical axial images of the head were obtained without IV contrast. Automated exposure control was utilized for the study. A dose lowering technique was utilized adhering to the principles of ALARA. FINDINGS: No acute intracranial hemorrhage, midline shift or mass effect is present. Ventricular system is stable. Basilar cisterns are patent. Garcia-white differentiation is maintained. There are no findings to suggest acute dural sinus thrombosis or acute territorial infarct. There is no calvarial fracture. Mastoid air cells are clear. Visualized portions of the sinuses are clear. IMPRESSION: No acute intracranial findings. Electronically signed by: Mu Bonds M.D. 02/01/2017 5:04 PM Dictated Date/Time: 02/01/2017 5:02 PM Laboratory Results 02/01/17 14:25 Red Blood Count 5.10, Mean Corpuscular Volume 77.1, Mean Corpuscular Hemoglobin 23.7, Mean Corpuscular Hemoglobin Concent 30.8, Mean Platelet Volume 10.5, Neutrophils (%) (Auto) 49.6, Lymphocytes (%) (Auto) 34.6, Monocytes (%) (Auto) 10.3, Eosinophils (%) (Auto) 4.4, Basophils (%) (Auto) 0.8, Neutrophils # (Auto ) 2.94, Lymphocytes # (Auto) 2.05, Monocytes # (Auto) 0.61, Eosinophils # (Auto ) 0.26, Basophils # (Auto) 0.05 02/01/17 14:25 Test 02/01/17 14:25 02/01/17 14:44 02/01/17 14:53 02/01/17 15:35 White Blood Count 5.93 K/uL (4.8-10.8) Red Blood Count 5.10 M/uL (4.2-5.4) Hemoglobin 12.1 g/dL (12.0-16.0) Hematocrit 39.3 % (37-47) Mean Corpuscular Volume 77.1 fL (80-100) Mean Corpuscular Hemoglobin 23.7 pg (25-34) Mean Corpuscular Hemoglobin Concent 30.8 g/dl (32-36) Platelet Count 131 K/uL (130-400) Mean Platelet Volume 10.5 fL (7.4-10.4) Neutrophils (%) (Auto) 49.6 % Lymphocytes (%) (Auto) 34.6 % Monocytes (%) (Auto) 10.3 % Eosinophils (%) (Auto) 4.4 % Basophils (%) (Auto) 0.8 % Neutrophils # (Auto) 2.94 K/uL (1.4-6.5) Lymphocytes # (Auto) 2.05 K/uL (1.2-3.4) Monocytes # (Auto) 0.61 K/uL (0.11-0.59) Eosinophils # (Auto) 0.26 K/uL (0-0.5) Basophils # (Auto) 0.05 K/uL (0-0.2) RDW Standard Deviation 47.4 fL (36.4-46.3) RDW Coefficient of Variation 16.8 % (11.5-14.5) Immature Granulocyte % (Auto) 0.3 % Immature Granulocyte # (Auto) 0.02 K/uL (0.00-0.02) Prothrombin Time 11.4 SECONDS (9.0-12.0) Prothromb Time International Ratio 1.1 (0.9-1.1) Activated Partial Thromboplast Time 27.7 SECONDS (21.0-31.0) Partial Thromboplastin Ratio 1.1 Anion Gap 6.0 mmol/L (3-11) Estimated GFR () 69.2 Estimated GFR (Non- 59.7 BUN/Creatinine Ratio 8.6 (10-20) Calcium Level 9.0 mg/dl (8.5-10.1) Total Bilirubin 0.4 mg/dl (0.2-1) Direct Bilirubin 0.1 mg/dl (0-0.2) Aspartate Amino Transf (AST/SGOT) 23 U/L (15-37) Alanine Aminotransferase (ALT/SGPT) 23 U/L (12-78) Alkaline Phosphatase 97 U/L (45-117) Total Creatine Kinase 74 U/L (26-192) Creatine Kinase MB 0.9 ng/ml (0.5-3.6) Creatine Kinase MB Ratio 1.2 (0-3.0) Troponin I < 0.015 ng/ml (0-0.045) Total Protein 7.0 gm/dl (6.4-8.2) Albumin 3.5 gm/dl (3.4-5.0) Lipase 336 U/L (73-393) Bedside Glucose 189 mg/dl (70-90) Bedside Lactic Acid Venous 2.24 mmol/L (0.90-1.70) Urine Color YELLOW Urine Appearance CLEAR (CLEAR) Urine pH 5.0 (4.5-7.5) Urine Specific [place] 1.021 (1.000-1.030) Urine Protein NEG (NEG) Urine Glucose (UA) 3+ (NEG) Urine Ketones NEG (NEG) Urine Occult Blood NEG (NEG) Urine Nitrite NEG (NEG) Urine Bilirubin NEG (NEG) Urine Urobilinogen NEG (NEG) Urine Leukocyte Esterase NEG (NEG) Test 02/01/17 18:10 02/01/17 19:00 Venous Blood pH 7.36 (7.36-7.41) Venous Blood Partial Pressure CO2 46 mmHg (38.0-50.0) Venous Blood Partial Pressure O2 31 mmHg Venous Blood HCO3 26 mmol/L Venous Blood Oxygen Saturation < 60.0 % Venous Blood Base Excess 0.0 mmol/L Ammonia 20.0 umol/L (11-32) Laboratory results per my review. Medications Administered Medications (Trade) Dose Ordered Sig/Natalya Route Start Time Stop Time Status Last Admin Dose Admin Sodium Chloride 1,000 ml @ 999 mls/hr Q1H1M STAT IV 02/01/17 14:32 02/01/17 15:32 DC 02/01/17 14:32 999 MLS/HR Ondansetron HCl (Zofran Inj) 4 mg NOW STAT IV 02/01/17 14:32 02/01/17 14:34 DC 02/01/17 14:32 4 MG ECG Indication: chest pain Rate (beats per minute): 76 Rhythm: normal sinus Findings: T-wave inversion (Anterior, high lateral), no ectopy Comparison ECG Date: 13-Oct-2016 Change: no significant change ED Course 1430: The patient was evaluated in room B2. A complete history and physical examination were performed. 1432: Zofran Inj 4 mg IV, NSS 1000 ml @ 999 mls/hr IV. 1718: Upon reevaluation, the patient is resting comfortably. I discussed results and treatment plan with her and her family. They verbalize agreement and understanding. The patient will be evaluated for further management and care. 1727: I discussed the patient's case [facility] The patient will be evaluated for further management. Medical Decision Prior records/ancillary studies reviewed and summarized above. Nursing notes reviewed. Additional history obtained from caregiver. The patient's history was concerning for weakness. Differential diagnosis: Etiologies such as metabolic, infection, hypo/hyperglycemia, electrolyte abnormalities, cardiac sources, intracerebral event, toxicologic, neurologic, as well as others were entertained. The patient is a 66-year-old female who presented to the emergency department for an evaluation of altered mental status. The patient has been seen in our facility for similar complaints in the past. Sometimes she has a urine infection. She did have some urinary complaints at the beginning of the week and was started on an antibiotic by her kennel hand. The patient states her symptoms have somewhat improved and her urinalysis does not appear to be consistent with the urine infection at this time. I discussed the patient's laboratory and radiographic studies with her and her daughter. She initially presented to the emergency department with her caregiver. Both caregiver and the patient's daughter feel that her mental status continues to be abnormal at this time. This reason I discussed her case with [facility] They've agreed to evaluate the patient in the emergency department for further management and disposition. Head Trauma GCS Score: 14 Medication Reconcilliation Current Medication List: was personally reviewed by me Blood Pressure Screening Patient's blood pressure: Normal blood pressure Blood pressure disposition: Did not require urgent referral Consults Time Called: 1721 Consulting Physician: Dr. Guevara[facility] Returned Call: 1727 I discussed the patient's case with him. The patient will be evaluated for further management. Impression Primary Impression: Altered mental status Additional Impression: Dehydration Scribe Attestation The scribe's documentation has been prepared under my direction and personally reviewed by me in its entirety. I confirm that the note above accurately reflects all work, treatment, procedures, and medical decision making performed by me. Departure Information Dispostion Being Evaluated By Hospitalist Referrals Alexis Dougherty, D.O. (PCP) Patient Instructions My [facility] Problem Qualifiers Primary Impression: Altered mental status Altered mental status type: unspecified Qualified Codes: R41.82 - Altered mental status, unspecified
[2017-02-01 14:49] LABS: INR 1.1 (0.9-1.1); PARTIAL THROMBOPLASTIN RATIO 1.1; PROTHROMBIN TIME (PATIENT) 11.4 SECONDS (9.0-12.0)
[2017-02-01 14:59] LABS: ALT/SGPT 23 U/L (12-78); AST/SGOT 23 U/L (15-37); BLOOD UREA NITROGEN 8 mg/dl (7-18); BUN/CREATININE RATIO 8.6 (10-20); CARBON DIOXIDE 28 mmol/L (21-32); CHLORIDE 100 mmol/L (98-107); CREATININE 0.98 mg/dl (0.60-1.20); GLUCOSE 179 mg/dl (70-99); POTASSIUM 4.2 mmol/L (3.5-5.1); SODIUM 134 mmol/L (136-145)
[2017-02-01 15:04] LABS: ALKALINE PHOSPHATASE 97 U/L (45-117); CKMB/CK RATIO 1.2 (0-3.0)
[2017-02-01] MEDS ORDERED: HYDR1CAP85 PO (15:12)
[2017-02-01] MEDS ORDERED: LSX20 PO (15:12)
--- NOTE | 2017-02-01 15:26 | DIAGNOSTIC IMAGING REPORT ---
CHEST ONE VIEW PORTABLE CLINICAL HISTORY: Abdominal pain. COMPARISON STUDY: Chest radiograph October 13, 2016. FINDINGS: Elevation of the right hemidiaphragm is unchanged. There are median sternotomy wires. Cardiomediastinal silhouette is normal. There is no evidence of pulmonary edema. No consolidation is identified to suggest pneumonia. IMPRESSION: No acute cardiopulmonary findings. Electronically signed by: Mu Bonds M.D. 02/01/2017 3:25 PM Dictated Date/Time: 02/01/2017 3:24 PM
[2017-02-01 16:05] LABS: URINE APPEARANCE CLEAR (CLEAR); URINE BILIRUBIN NEG (NEG); URINE COLOR YELLOW; URINE NITRITE NEG (NEG); URINE SPECIFIC GRAVITY 1.021 (1.000-1.030); UROBILINOGEN NEG (NEG)
[2017-02-01 16:07] LABS: MANUAL MICROSCOPIC REQUIRED? NO; REVIEW REQ? NO
--- NOTE | 2017-02-01 17:05 | DIAGNOSTIC IMAGING REPORT ---
CT OF THE HEAD WITHOUT CONTRAST CLINICAL HISTORY: Confusion. COMPARISON STUDY: Head CT October 13, 2016. CT DOSE: 767.83 mGy.cm TECHNIQUE: Helical axial images of the head were obtained without IV contrast. Automated exposure control was utilized for the study. A dose lowering technique was utilized adhering to the principles of ALARA. FINDINGS: No acute intracranial hemorrhage, midline shift or mass effect is present. Ventricular system is stable. Basilar cisterns are patent. Garcia-white differentiation is maintained. There are no findings to suggest acute dural sinus thrombosis or acute territorial infarct. There is no calvarial fracture. Mastoid air cells are clear. Visualized portions of the sinuses are clear. IMPRESSION: No acute intracranial findings. Electronically signed by: Mu Bonds M.D. 02/01/2017 5:04 PM Dictated Date/Time: 02/01/2017 5:02 PM
--- NOTE | 2017-02-01 17:16 | DIAGNOSTIC IMAGING REPORT ---
CT OF THE ABDOMEN AND PELVIS WITHOUT CONTRAST CLINICAL HISTORY: Confusion. Pain. Nausea. Recent urinary tract infection. COMPARISON STUDY: CT of the abdomen and pelvis October 13, 2015. TECHNIQUE: Axial images of the abdomen and pelvis were obtained without IV contrast. Images were reviewed in the axial, sagittal, and coronal planes. A dose lowering technique was utilized adhering to the principles of ALARA. FINDINGS: No renal, ureteral or bladder calculi are identified. Evaluation of the remainder of the abdomen and pelvis is suboptimal on this unenhanced exam. Mild splenomegaly is unchanged. There is no biliary ductal dilatation status post cholecystectomy. Unenhanced images of the liver, adrenal glands, kidneys and pancreas are unremarkable. There is no evidence for a bowel obstruction. The appendix is not visualized. There is a moderate amount of stool within the colon and rectum. Postoperative findings within the lumbar spine are suboptimally assessed by CT. No suspicious osseous lesion is present. There is no ascites or abscess. No lymphadenopathy is present. IMPRESSION: 1. No urinary calculi or hydronephrosis. 2. No acute process within the abdomen or pelvis on unenhanced exam. 3. Stable mild splenomegaly. Electronically signed by: Mu Bonds M.D. 02/01/2017 5:14 PM Dictated Date/Time: 02/01/2017 5:09 PM
[2017-02-01 18:26] LABS: VEN BLD GAS O2 SATURATION < 60.0 %; VENOUS BLOOD GAS PCO2 46 mmHg (38.0-50.0); VENOUS BLOOD GAS PO2 31 mmHg
[2017-02-01] MEDS ORDERED: SODIUM CHLORIDE 0.9% 1000ML 1,000 ML IV SCH (18:30)
[2017-02-01] MEDS ORDERED: BISACODYL 10 MG SUPP PR PRN (18:30)
[2017-02-01] MEDS ORDERED: GLUCOSE 40% GEL 15 GM TUBE PO PRN (18:45)
[2017-02-01] MEDS ORDERED: GLUCOSE 10 TABS/TUBE PO PRN (18:45)
[2017-02-01] MEDS ORDERED: DEXTROSE 50% 50 ML SYR IV PRN (18:45)
[2017-02-01] MEDS ORDERED: GLUCAGON FOR INJ 1 MG VIAL SQ PRN (18:45)
[2017-02-01] MEDS ORDERED: PATIENT'S HEIGHT AND/OR WEIGHT NEEDED SCH (19:30)
[2017-02-01] MEDS ORDERED: PIPERACILL/TAZOBAC CONSULT ACTIVE PRN (19:30)
[2017-02-01 19:34] VITALS: BP 118/73; PULSE 68; TEMP 36.9; O2SAT 95; Ht 172.7 cm; Wt 102.1 kg
[2017-02-01] MEDS ORDERED: PIPERACILL/TAZOBAC IV 3.375 GM in DEXTROSE 5% 100ML IV ONE (19:45)
[2017-02-01] MEDS ORDERED: PANTOprazole INJ 40 MG in SYRINGE 0 ML IV ONE (19:45)
--- NOTE | 2017-02-01 19:51 | History and Physical ---
History & Physical Date & Time of Service: Feb 01, 2017 at 19:38 Chief Complaint: Altered Mental Status Primary Care Physician: Alexis Dougherty D.O. History of Present Illness Source: patient, family, clinic records, hospital records 66 year old female with history of CAD s/p Stent, DM, HTN, GONZALEZ, GERD, Bipolar, Chronic Pain presenting with altered mental status. Patient's history supplemented by patient's daughter- Carolyn. Apparently patient has been noted to be somewhat more drowsy for the past week. Also, she was started on Cipro last Friday during her [facility] visit for UTI symptoms. This morning, patient was noted to be somewhat confused; hence brought to the hospital. CT head negative for acute CVA. On exam, patient oriented x 3, answers questions appropriately. Daughter said patient was somewhat confused in the ER and is also having hallucinations. During my interview, I did not observe any confusion/hallucinations. Patient denies having any focal weakness or numbness, or neuro deficits. Denies headache, dizziness, cough, dyspnea, chest pain. Reports diffuse abdominal pain, cramping, nausea, constipated. No other symptoms. Past Medical/Surgical History Medical Problems: (1) Bipolar disorder Status: Chronic (2) Ehvgddt-Etbho-Lpzjx disease Status: Chronic (3) Chronic back pain Status: Chronic (4) Chronic nonalcoholic liver disease Status: Chronic (5) Coronary artery disease Status: Chronic (6) Deep venous thrombosis Status: Resolved (7) Depression Status: Chronic (8) Diabetes mellitus type 2 Status: Chronic (9) Dyslipidemia Status: Chronic (10) Essential hypertension Status: Chronic (11) Gastroesophageal reflux disease Status: Chronic (12) Hypothyroidism Status: Chronic (13) OCD (obsessive compulsive disorder) Status: Chronic Surgical Problems: (1) H/O colonoscopy Status: Chronic (2) History of back surgery Status: Chronic (3) History of hysterectomy Status: Chronic (4) Hx of CABG Status: Chronic (5) Hx of cardiac cath Status: Chronic (6) S/P appendectomy Status: Chronic (7) S/P cholecystectomy Status: Chronic (8) S/P CARLOS-BSO Status: Chronic (9) S/P total knee arthroplasty Status: Chronic Family History Diabetes mellitus FHx: cancer FHx: gallbladder disease FHx: heart disease Hypertension Social History Smoking Status: Unknown if Ever Smoked Smokeless Tobacco Use: No Alcohol Use: none Drug Use: none Marital Status: Housing status: lives alone Occupational Status: disabled Immunizations History of Influenza Vaccine: Yes Influenza Vaccine Date: Apr 23, 2013 History of Tetanus Vaccine?: Unknown History of Pneumococcal: Unknown Pneumococcal Date: Jun 26, 2001 History of Hepatitis B Vaccine: Unknown Hepatitis Immunization Date: Oct 29, 2010 Allergies Coded Allergies: Fentanyl (Verified Allergy, Unknown, PANIC WANTS TO RUN AND AGGRESSIVE, ) Zolpidem (Verified Adverse Reaction, Intermediate, confusion, 12/25/16) Methocarbamol (Verified Adverse Reaction, Mild, DELERIUM, 12/25/16) Propoxyphene (Verified Adverse Reaction, Mild, N&V, 12/25/16) Home Medications Scheduled Albuterol Hfa (Ventolin Hfa), 2 PUFFS INH Q6H Aripiprazole (Abilify), 2 MG PO QPM Aspirin (Aspirin Ec), 81 MG PO QAM Atorvastatin Calcium (Lipitor), 80 MG PO QPM Canagliflozin (Invokana), 100 MG PO QAM Clonazepam (Klonopin), 0.5 MG PO BID Docusate Sodium (Docusate Sodium), 1 CAP PO QAM Famotidine (Pepcid), 40 MG PO HS Furosemide (Furosemide), 20 MG PO DAILY Gabapentin (Neurontin), 600 MG PO BID Hydroxyzine Pamoate (Vistaril), 25 MG PO BID Isosorbide Mononitrate Ext Rel (Imdur Ext Rel), 30 MG PO QAM Lactulose (Encephalopathy) (Lactulose), 30 ML PO Q2D Lamotrigine (Lamictal), 100 MG PO QAM Lamotrigine (Lamictal), 25 MG PO QAM Lamotrigine (Lamictal), 50 MG PO HS Levothyroxine Sodium (Synthroid), 88 MCG PO QAM Lisinopril (Lisinopril), 2.5 MG PO QAM Metformin Hcl (Glucophage), 1,000 MG PO BIDM Metoprolol Succ (Toprol Xl) (Toprol-Xl), 75 MG PO QAM Morphine Sulfate (Morphine Sulfate ER), 30 MG PO Q12 Nitroglycerin (Nitrostat), 1 TAB SL UD Omeprazole (Omeprazole), 1 TAB PO BID Trazodone Hcl (Trazodone), 150 MG PO HS Venlafaxine Hcl (Effexor Xr), 75 MG PO QAM Venlafaxine Hcl (Effexor Xr), 150 MG PO QAM Scheduled PRN Dicyclomine HCl (Dicyclomine HCl), 1 CAP PO QID PRN for abdominal pain Ondansetron Odt (Zofran Odt), 8 MG SL Q8 PRN for Nausea or Vomiting Oxycodone Ir (Roxicodone Ir), 5 MG PO BID PRN for Severe Pain Review of Systems Constitutional- no fever; no weight loss Eyes- no acute visual changes ENT- no sinus drainage; no pharyngitis Pulmonary- no cough, no wheezing, no shortness of breath Cardiac- no chest pain, no palpitations, no orthopnea, no dependent edema GI- (+) as noted above - no dysuria, no hematuria Musculoskeletal- no arthralgias, no myalgias Derm- no rashes, no new skin lesions, no changing skin lesions Hematologic- no unusual bruising, no unusual bleeding Lymphatics- no adenopathy Endocrine- no polyuria or polydipsia; no heat or cold intolerance Neuro- no headaches, no focal neurologic symptoms Psych- no anxiety, no depression Physical Exam Vital Signs Date Time Temp Pulse Resp B/P (MAP) Pulse Ox O2 Delivery O2 Flow Rate FiO2 02/01/17 19:10 65 18 109/62 95 Room Air 02/01/17 18:16 64 18 107/64 96 Room Air 02/01/17 16:12 70 18 128/74 94 Room Air 02/01/17 14:27 95 Room Air 02/01/17 14:27 75 02/01/17 14:14 37.0 79 20 108/73 96 Room Air General Appearance: WD/WN, no apparent distress Head: normocephalic, atraumatic Eyes: normal inspection, PERRL, EOMI, sclerae normal ENT: normal ENT inspection, hearing grossly normal, pharynx normal Neck: supple, no adenopathy, thyroid normal, no JVD, trachea midline Respiratory/Chest: chest non-tender, lungs clear, normal breath sounds, no respiratory distress, no accessory muscle use Cardiovascular: regular rate, rhythm, no edema, no JVD, no murmur Abdomen/GI: normal bowel sounds, soft, + pertinent finding (mild tenderness on all quadrants) Back: normal inspection, no CVA tenderness Extremities/Musculoskelatal: normal inspection, no calf tenderness, no pedal edema 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, alert, normal mood/affect, oriented x 3, + pertinent finding (sensation left arm>right arm; motors 100%) Skin: normal color, warm/dry, no rash Lymphatic: no adenopathy Diagnostics Laboratory Results Results Past 24 Hours Test 02/01/17 14:25 02/01/17 14:44 02/01/17 14:53 02/01/17 15:35 Range/Units White Blood Count 5.93 4.8-10.8 K/uL Red Blood Count 5.10 4.2-5.4 M/uL Hemoglobin 12.1 12.0-16.0 g/dL Hematocrit 39.3 37-47 % Mean Corpuscular Volume 77.1 80-100 fL Mean Corpuscular Hemoglobin 23.7 25-34 pg Mean Corpuscular Hemoglobin Concent 30.8 32-36 g/dl Platelet Count 131 130-400 K/uL Mean Platelet Volume 10.5 7.4-10.4 fL Neutrophils (%) (Auto) 49.6 % Lymphocytes (%) (Auto) 34.6 % Monocytes (%) (Auto) 10.3 % Eosinophils (%) (Auto) 4.4 % Basophils (%) (Auto) 0.8 % Neutrophils # (Auto) 2.94 1.4-6.5 K/uL Lymphocytes # (Auto) 2.05 1.2-3.4 K/uL Monocytes # (Auto) 0.61 0.11-0.59 K/uL Eosinophils # (Auto) 0.26 0-0.5 K/uL Basophils # (Auto) 0.05 0-0.2 K/uL RDW Standard Deviation 47.4 36.4-46.3 fL RDW Coefficient of Variation 16.8 11.5-14.5 % Immature Granulocyte % (Auto) 0.3 % Immature Granulocyte # (Auto) 0.02 0.00-0.02 K/uL Prothrombin Time 11.4 9.0-12.0 SECONDS Prothromb Time International Ratio 1.1 0.9-1.1 Activated Partial Thromboplast Time 27.7 21.0-31.0 SECONDS Partial Thromboplastin Ratio 1.1 Sodium Level 134 136-145 mmol/L Potassium Level 4.2 3.5-5.1 mmol/L Chloride Level 100 98-107 mmol/L Carbon Dioxide Level 28 21-32 mmol/L Anion Gap 6.0 3-11 mmol/L Blood Urea Nitrogen 8 7-18 mg/dl Creatinine 0.98 0.60-1.20 mg/dl Estimated GFR () 69.2 Estimated GFR (Non- 59.7 BUN/Creatinine Ratio 8.6 10-20 Random Glucose 179 70-99 mg/dl Calcium Level 9.0 8.5-10.1 mg/dl Total Bilirubin 0.4 0.2-1 mg/dl Direct Bilirubin 0.1 0-0.2 mg/dl Aspartate Amino Transf (AST/SGOT) 23 15-37 U/L Alanine Aminotransferase (ALT/SGPT) 23 12-78 U/L Alkaline Phosphatase 97 45-117 U/L Total Creatine Kinase 74 26-192 U/L Creatine Kinase MB 0.9 0.5-3.6 ng/ml Creatine Kinase MB Ratio 1.2 0-3.0 Troponin I < 0.015 0-0.045 ng/ml Total Protein 7.0 6.4-8.2 gm/dl Albumin 3.5 3.4-5.0 gm/dl Lipase 336 73-393 U/L Bedside Glucose 189 70-90 mg/dl Bedside Lactic Acid Venous 2.24 0.90-1.70 mmol/L Urine Color YELLOW Urine Appearance CLEAR CLEAR Urine pH 5.0 4.5-7.5 Urine Specific Sterling 1.021 1.000-1.030 Urine Protein NEG NEG Urine Glucose (UA) 3+ NEG Urine Ketones NEG NEG Urine Occult Blood NEG NEG Urine Nitrite NEG NEG Urine Bilirubin NEG NEG Urine Urobilinogen NEG NEG Urine Leukocyte Esterase NEG NEG Test 02/01/17 18:10 02/01/17 19:11 Range/Units Venous Blood pH 7.36 7.36-7.41 Venous Blood Partial Pressure CO2 46 38.0-50.0 mmHg Venous Blood Partial Pressure O2 31 mmHg Venous Blood HCO3 26 mmol/L Venous Blood Oxygen Saturation < 60.0 % Venous Blood Base Excess 0.0 mmol/L Ammonia 20.0 11-32 umol/L Microbiology Results 02/01/17 Blood Culture, Received Pending 02/01/17 Blood Culture, Received Pending 02/01/17 Urine Culture, Received Pending Diagnostic Radiology CT OF THE HEAD WITHOUT CONTRAST CLINICAL HISTORY: Confusion. COMPARISON STUDY: Head CT October 13, 2016. CT DOSE: 767.83 mGy.cm TECHNIQUE: Helical axial images of the head were obtained without IV contrast. Automated exposure control was utilized for the study. A dose lowering technique was utilized adhering to the principles of ALARA. FINDINGS: No acute intracranial hemorrhage, midline shift or mass effect is present. Ventricular system is stable. Basilar cisterns are patent. Garcia-white differentiation is maintained. There are no findings to suggest acute dural sinus thrombosis or acute territorial infarct. There is no calvarial fracture. Mastoid air cells are clear. Visualized portions of the sinuses are clear. IMPRESSION: No acute intracranial findings. EKG sinus rhythm, normal HR, no signs of acute infarct Impression Assessment and Plan 66 year old female with history of CAD s/p Stent, DM, HTN, GONZALEZ, GERD, Bipolar, Chronic Pain presenting with altered mental status. ALTERED MENTAL STATUS- EPISODE OF CONFUSION POSSIBLE HEPATIC ENCEPHALOPATHY? FROM MEDICATIONS? - patient not taking Lactulose, will resume - ammonia 20 but patient has GONZALEZ, has clinical symptoms of hepatic encephalopathy - HOLD usual Psych meds, Narcotics, Benzos for tonight R/O INFECTION - ff up cultures - empiric Zosyn IV R/O CVA - CT head negative patient declines MRI repeat CT head in AM already on Aspirin Neurochecks ABDOMINAL PAIN LIKELY FROM CONSTIPATION - CT abdomen unrevealing - Lactulose ordered Dulcolax supp PRN ELEVATED LACTIC ACID - repeat at 7pm - gentle IV fluids hold Lasix CAD, S/P STENT - stable DM - ISS HTN - cont usual meds GERD - PPI Disposition - pending Full code per patient DVT proph SCDs for now VTE Prophylaxis VTE Risk Assessment Done? Y/N: Yes Risk Level: Moderate Given or contraindicated: SCD's
[2017-02-01] MEDS: INSULIN ASPART 100 UNITS/ML 3 ML PEN SC SCH (20:50)
[2017-02-01] MEDS: ALBUTEROL HFA 8 GM INHALER INH SCH (20:52)
[2017-02-01] MEDS: LACTULOSE SYRUP 30 GM/45 ML UDP PO SCH (20:52)
[2017-02-01] MEDS: GABAPENTIN 600 MG TAB PO SCH (20:52)
[2017-02-01] MEDS: ATORVASTATIN 40 MG TAB PO SCH (20:53)
[2017-02-01] MEDS ORDERED: TRAZODONE HCL 50 MG TAB PO ONE (21:53)
[2017-02-01] MEDS: MoRPHine SULFATE CR 15 MG TAB (MS CONTIN) PO SCH (22:25)
[2017-02-02 00:21] VITALS: BP 103/67; PULSE 68; TEMP 36.8; O2SAT 95
[2017-02-02] MEDS: ALBUTEROL HFA 8 GM INHALER INH SCH ×5 (00:25→21:39)
[2017-02-02] MEDS: PIPERACILL/TAZOBAC IV 3.375 GM in DEXTROSE 5% 100ML 100 ML IV SCH ×3 (03:09→19:41)
[2017-02-02] MEDS: ACETAMINOPHEN 325 MG TAB PO PRN (03:10)
[2017-02-02 04:48] VITALS: BP 140/85; PULSE 79; TEMP 36.9; O2SAT 96
[2017-02-02] MEDS: LEVOTHYROXINE 88 MCG TAB PO SCH (05:51)
[2017-02-02 07:08] VITALS: BP 127/82; PULSE 63; TEMP 36.9; O2SAT 94
[2017-02-02] MEDS: INSULIN ASPART 100 UNITS/ML 3 ML PEN SC SCH ×4 (08:51→20:50)
[2017-02-02] MEDS: LACTULOSE SYRUP 30 GM/45 ML UDP PO SCH ×3 (08:51→19:43)
[2017-02-02] MEDS: ASPIRIN 81 MG ECTAB PO SCH (08:52)
[2017-02-02] MEDS: DOCUSATE SODIUM 100 MG CAP PO SCH (08:52)
[2017-02-02] MEDS: ISOSORBIDE MONONITRATE 30 MG TABCR PO SCH (08:53)
[2017-02-02] MEDS: METOPROLOL SUCC 25MG EXT REL TAB PO SCH (08:53)
[2017-02-02] MEDS: GABAPENTIN 600 MG TAB PO SCH ×2 (08:53→21:35)
[2017-02-02] MEDS: LISINOPRIL 2.5 MG TAB PO SCH (08:54)
[2017-02-02] MEDS: MoRPHine SULFATE CR 15 MG TAB (MS CONTIN) PO SCH ×2 (09:04→21:36)
[2017-02-02] MEDS: ONDANSETRON INJ 2 MG/ML 2 ML VIAL IV PRN (09:05)
[2017-02-02 09:13] LABS: BASO % 0.7 %; BASO ABS # 0.03 K/uL (0-0.2); COMPLETE YES; EOS % 4.9 %; HEMATOCRIT 36.6 % (37-47); IG% 0.5 %; MEAN CELL VOLUME 77.5 fL (80-100); MEAN CORPUSCULAR HEMOGLOBIN 23.7 pg (25-34); MEAN CORPUSCULAR HGB CONC 30.6 g/dl (32-36); MEAN PLATELET VOLUME 10.3 fL (7.4-10.4); MONO % 11.4 %; NEUT % 40.5 %; PLATELET COUNT 105 K/uL (130-400); RED BLOOD COUNT 4.72 M/uL (4.2-5.4); WHITE BLOOD COUNT 4.05 K/uL (4.8-10.8)
--- NOTE | 2017-02-02 09:22 | DIAGNOSTIC IMAGING REPORT ---
HEAD WITHOUT CONTRAST (CT) CT DOSE: 537.48 mGy.cm HISTORY: Mental status change r/o cava TECHNIQUE: Multiaxial CT images of the head were performed without the use of intravenous contrast. A dose lowering technique was utilized adhering to the principles of ALARA. Comparison: 02/01/2017 Findings: The paranasal sinuses and mastoid air cells are clear. The calvarium and skull base are intact. The ventricles and sulci are within normal limits. There is no mass, hematoma, midline shift, or acute infarct. Impression: No acute intracranial abnormality. No change from the prior study The above report was generated using voice recognition software. It may contain grammatical, syntax or spelling errors. Electronically signed by: Tony Rubi M.D. 02/02/2017 9:20 AM Dictated Date/Time: 02/02/2017 9:18 AM
[2017-02-02] MEDS: PANTOprazole INJ 40 MG in SYRINGE 0 ML IV SCH (09:24)
[2017-02-02 09:39] LABS: BUN/CREATININE RATIO 7.2 (10-20); CALCIUM 8.5 mg/dl (8.5-10.1); CREATININE 0.9 mg/dl (0.60-1.20); MAGNESIUM 2.2 mg/dl (1.8-2.4)
[2017-02-02] MEDS ORDERED: MAGNESIUM HYDROXIDE SUSP 30 ML UDC PO PRN (09:45)
--- NOTE | 2017-02-02 09:51 | Progress Note ---
Medicine Progress Note Date & Time of Visit: Feb 02, 2017 at 09:45. Subjective patient seen resting in bed, alert, oriented x 3 answers all questions appropriately states she still feels "foggy" when thinking denies hallucinations, lethargy vague generalized abdominal discomfort is improving still has some nausea had 1 BM last night denies headache, dizziness, chest pain, palpitations, dyspnea no problems with urination no other symptoms Objective Last 8 Hrs Date Time Temp Pulse Resp B/P (MAP) Pulse Ox O2 Delivery O2 Flow Rate FiO2 02/02/17 08:00 Room Air 02/02/17 07:08 36.9 63 20 127/82 (97) 94 Room Air 02/02/17 04:48 36.9 79 18 140/85 (103) 96 Room Air 02/02/17 04:00 Room Air Physical Exam: General- oriented x 3, not in distress, speaks in sentences with no effort Head- atraumatic Eyes- EOMI, anicteric ENT- oropharynx clear Neck- supple, no JVD Lungs- clear breath sounds bilaterally, no rales/wheezes Heart- regular rhythm; no murmur, normal rate Abdomen- normal bowel sounds, soft, nontender Extremities- no pretibial edema, no calf tenderness Neuro- alert, oriented x 3; sensation left arm> right arm, no other focal neuro deficits Skin- warm & dry Laboratory Results: Last 24 Hours Test 02/01/17 14:25 02/01/17 14:44 02/01/17 14:53 02/01/17 15:35 White Blood Count 5.93 K/uL Red Blood Count 5.10 M/uL Hemoglobin 12.1 g/dL Hematocrit 39.3 % Mean Corpuscular Volume 77.1 fL Mean Corpuscular Hemoglobin 23.7 pg Mean Corpuscular Hemoglobin Concent 30.8 g/dl Platelet Count 131 K/uL Mean Platelet Volume 10.5 fL Neutrophils (%) (Auto) 49.6 % Lymphocytes (%) (Auto) 34.6 % Monocytes (%) (Auto) 10.3 % Eosinophils (%) (Auto) 4.4 % Basophils (%) (Auto) 0.8 % Neutrophils # (Auto) 2.94 K/uL Lymphocytes # (Auto) 2.05 K/uL Monocytes # (Auto) 0.61 K/uL Eosinophils # (Auto) 0.26 K/uL Basophils # (Auto) 0.05 K/uL RDW Standard Deviation 47.4 fL RDW Coefficient of Variation 16.8 % Immature Granulocyte % (Auto) 0.3 % Immature Granulocyte # (Auto) 0.02 K/uL Prothrombin Time 11.4 SECONDS Prothromb Time International Ratio 1.1 Activated Partial Thromboplast Time 27.7 SECONDS Partial Thromboplastin Ratio 1.1 Sodium Level 134 mmol/L Potassium Level 4.2 mmol/L Chloride Level 100 mmol/L Carbon Dioxide Level 28 mmol/L Anion Gap 6.0 mmol/L Blood Urea Nitrogen 8 mg/dl Creatinine 0.98 mg/dl Estimated GFR () 69.2 Estimated GFR (Non- 59.7 BUN/Creatinine Ratio 8.6 Random Glucose 179 mg/dl Calcium Level 9.0 mg/dl Total Bilirubin 0.4 mg/dl Direct Bilirubin 0.1 mg/dl Aspartate Amino Transf (AST/SGOT) 23 U/L Alanine Aminotransferase (ALT/SGPT) 23 U/L Alkaline Phosphatase 97 U/L Total Creatine Kinase 74 U/L Creatine Kinase MB 0.9 ng/ml Creatine Kinase MB Ratio 1.2 Troponin I < 0.015 ng/ml Total Protein 7.0 gm/dl Albumin 3.5 gm/dl Lipase 336 U/L Bedside Glucose 189 mg/dl Bedside Lactic Acid Venous 2.24 mmol/L Urine Color YELLOW Urine Appearance CLEAR Urine pH 5.0 Urine Specific [place]ron[place] 1.021 Urine Protein NEG Urine Glucose (UA) 3+ Urine Ketones NEG Urine Occult Blood NEG Urine Nitrite NEG Urine Bilirubin NEG Urine Urobilinogen NEG Urine Leukocyte Esterase NEG Test 02/01/17 18:10 02/01/17 19:11 02/01/17 20:05 02/02/17 06:34 Venous Blood pH 7.36 Venous Blood Partial Pressure CO2 46 mmHg Venous Blood Partial Pressure O2 31 mmHg Venous Blood HCO3 26 mmol/L Venous Blood Oxygen Saturation < 60.0 % Venous Blood Base Excess 0.0 mmol/L Ammonia 20.0 umol/L Lactic Acid Level 1.3 mmol/L Bedside Glucose 118 mg/dl 139 mg/dl Test 02/02/17 08:42 02/02/17 08:43 Sodium Level 137 mmol/L Potassium Level 4.0 mmol/L Chloride Level 103 mmol/L Carbon Dioxide Level 27 mmol/L Anion Gap 7.0 mmol/L Blood Urea Nitrogen 7 mg/dl Creatinine 0.90 mg/dl Est Creatinine Clear Calc Drug Dose 77.6 ml/min Estimated GFR () 76.7 Estimated GFR (Non- 66.2 BUN/Creatinine Ratio 7.2 Random Glucose 190 mg/dl Calcium Level 8.5 mg/dl Magnesium Level 2.2 mg/dl Ammonia 42.0 umol/L White Blood Count 4.05 K/uL Red Blood Count 4.72 M/uL Hemoglobin 11.2 g/dL Hematocrit 36.6 % Mean Corpuscular Volume 77.5 fL Mean Corpuscular Hemoglobin 23.7 pg Mean Corpuscular Hemoglobin Concent 30.6 g/dl Platelet Count 105 K/uL Mean Platelet Volume 10.3 fL Neutrophils (%) (Auto) 40.5 % Lymphocytes (%) (Auto) 42.0 % Monocytes (%) (Auto) 11.4 % Eosinophils (%) (Auto) 4.9 % Basophils (%) (Auto) 0.7 % Neutrophils # (Auto) 1.64 K/uL Lymphocytes # (Auto) 1.70 K/uL Monocytes # (Auto) 0.46 K/uL Eosinophils # (Auto) 0.20 K/uL Basophils # (Auto) 0.03 K/uL RDW Standard Deviation 48.6 fL RDW Coefficient of Variation 17.0 % Immature Granulocyte % (Auto) 0.5 % Immature Granulocyte # (Auto) 0.02 K/uL Date/Time Source Procedure Growth Status 02/01/17 18:25 Blood Blood Culture Pending Received 02/01/17 18:17 Blood Blood Culture Pending Received 02/01/17 15:35 Urine , Clean Catch Urine Culture Pending Received Assessment & Plan 66 year old female with history of CAD s/p Stent, DM, HTN, GONZALEZ, GERD, Bipolar, Chronic Pain presenting with altered mental status. ALTERED MENTAL STATUS- EPISODE OF CONFUSION likely from HEPATIC ENCEPHALOPATHY FROM MEDICATIONS? - mental status improved compared to yesterday - patient not taking Lactulose, resumed ammonia 20--> 42 continue Lactulose - resume usual Morphine, Oxy, Psych Meds monitor R/O INFECTION - afebrile, no leukocytosis - ff up cultures - empiric Zosyn IV Day 2 R/O CVA - CT head negative patient declines MRI repeat CT head in AM: negative already on Aspirin Neurochecks ABDOMINAL PAIN LIKELY FROM CONSTIPATION - CT abdomen unrevealing - Lactulose ordered Dulcolax supp , Milk of Mg PRN ELEVATED LACTIC ACID -- resolved CAD, S/P STENT - stable DM - ISS HTN - cont usual meds GERD - PPI Disposition - pending - PT/OT ordered - anticipate d/c home when medically stable Full code per patient DVT proph SCDs for now VTE Prophylaxis VTE Risk Assessment Done? Y/N: Yes Risk Level: Moderate Given or contraindicated: SCD's Current Inpatient Medications: Current Inpatient Medications Medications (Trade) Dose Ordered Sig/Natalya Route Start Time Stop Time Status Last Admin Dose Admin Piperacillin Sod/ Tazobactam Sod 3.375 gm/Dextrose 115 ml @ 28.75 mls/ hr Q8@0400,1200,2000 IV 02/02/17 04:00 02/12/17 03:59 02/02/17 03:09 28.75 MLS/HR Lactulose (Chronulac Syrup) 30 gm TID PO 02/01/17 21:00 03/03/17 20:59 02/02/17 08:51 30 GM Bisacodyl (Dulcolax Supp) 10 mg DAILY PRN MO 02/01/17 18:30 03/03/17 18:29 Pantoprazole Sodium 40 mg/ Syringe 10 ml @ 5 mls/min DAILY@11 IV 02/02/17 11:00 03/04/17 10:59 02/02/17 09:24 5 MLS/MIN Sodium Chloride 1,000 ml @ 60 mls/hr [id number] IV 02/01/17 18:30 02/02/17 11:09 02/01/17 20:51 60 MLS/HR Insulin Aspart (novoLOG ASPART) SLIDING SCALE If C... ACHS SC 02/01/17 21:00 03/03/17 20:59 02/02/17 08:51 2 UNITS Glucose (Glucose 40% Gel) 15-30 GRAMS 15 GRAMS... UD PRN PO 02/01/17 18:45 03/03/17 18:44 Glucose (Glucose Chew Tab) 4-8 Tablets 4 Tabl... UD PRN PO 02/01/17 18:45 03/03/17 18:44 Dextrose (Dextrose 50% 50ML Syringe) 25-50ML OF 50% DW IV FOR... UD PRN IV 02/01/17 18:45 03/03/17 18:44 Glucagon (Glucagon Inj) 1 mg UD PRN SQ 02/01/17 18:45 03/03/17 18:44 Albuterol (Ventolin Hfa Inhaler) 2 puffs Q6R INH 02/01/17 21:00 03/03/17 20:59 02/01/17 20:52 2 PUFFS Aspirin (Ecotrin Tab) 81 mg QAM PO 02/02/17 09:00 03/04/17 08:59 02/02/17 08:52 81 MG Atorvastatin Calcium (Lipitor Tab) 80 mg QPM PO 02/01/17 21:00 03/03/17 20:59 02/01/17 20:53 80 MG Docusate Sodium (coLACE CAP) 100 mg QAM PO 02/02/17 09:00 03/04/17 08:59 02/02/17 08:52 100 MG Gabapentin (Neurontin Tab) 600 mg BID PO 02/01/17 21:00 03/03/17 20:59 02/02/17 08:53 600 MG Isosorbide Mononitrate (Imdur Ext Rel Tab) 30 mg QAM PO 02/02/17 09:00 03/04/17 08:59 02/02/17 08:53 30 MG Lamotrigine (Lamictal Tab) 25 mg QAM PO 02/02/17 09:00 03/04/17 08:59 02/02/17 08:53 25 MG Lamotrigine (Lamictal Tab) 100 mg QAM PO 02/02/17 09:00 03/04/17 08:59 02/02/17 08:53 100 MG Levothyroxine Sodium (Synthroid Tab) 88 mcg DAILYBB PO 02/02/17 06:00 03/04/17 06:59 02/02/17 05:51 88 MCG Lisinopril (Zestril Tab) 2.5 mg QAM PO 02/02/17 09:00 03/04/17 08:59 02/02/17 08:54 2.5 MG Metoprolol Succinate (Toprol Xl Tab) 75 mg QAM PO 02/02/17 09:00 03/04/17 08:59 02/02/17 08:53 75 MG Acetaminophen (Tylenol Tab) 650 mg Q4H PRN PO 02/01/17 19:00 03/03/17 18:59 02/02/17 03:10 650 MG Piperacillin Sod/ Tazobactam Sod (Consult) 1 ea UD PRN N/A 02/01/17 19:30 03/03/17 19:29 Trazodone HCl (Desyrel Tab) 150 mg HS PO 02/02/17 21:00 03/04/17 20:59 Morphine Sulfate (Oramorph Sr Tab) 30 mg Q12H PO 02/01/17 22:00 02/15/17 21:59 02/02/17 09:04 30 MG Ondansetron HCl (Zofran Inj) 4 mg Q6H PRN IV 02/02/17 06:00 03/04/17 05:59 02/02/17 09:05 4 MG
[2017-02-02 11:35] VITALS: BP 107/61; PULSE 68; TEMP 36.8; O2SAT 95
[2017-02-02] MEDS: OXYCODONE HCL IR 5 MG TAB (IMMEDIATE RELEASE) PO PRN (13:03)
[2017-02-02] MEDS ORDERED: NURSING VERBAL MED ORDER ONE (14:30)
[2017-02-02 15:30] VITALS: BP 105/61; PULSE 63; TEMP 36.3; O2SAT 93
[2017-02-02 19:21] VITALS: BP 99/61; PULSE 63; TEMP 36.5; O2SAT 98
--- NOTE | 2017-02-02 19:55 | CONSULTATION REPORT ---
DATE OF CONSULTATION: 02/02/2017 HISTORY OF PRESENT ILLNESS: Angelina is 66 years old, is right handed, is a patient of Dr. Alexis Dougherty. I have seen her episodically actually over the past nearly 35 years, having first contacted her in [place] in the early 1980s when she presented with acute lower extremity weakness syndrome whose causation was never established. 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 She also has chronic lower back pain and there is a question whether some of her issues might have been due to discogenic disease. Whatever the case, it has not progressed much if at all and she does have some chronic pain related to it. In addition, she has chronic bipolar disease, chronic nonalcoholic steatohepatitis, coronary artery disease, has a history of DVT, type 2 diabetes, dyslipidemia, essential hypertension, gastroesophageal reflux, hypothyroidism, obsessive compulsive disease. Surgically she has had a colonoscopy, lower back surgery, hysterectomy, coronary artery bypass grafting, cardiac catheterization, appendectomy, cholecystectomy, she is post-TAHBSO and has had total knee arthroplasties on the right. In this setting then she apparently developed urinary tract infection several weeks ago. Prior to that she had been getting few more headaches than usual and she does have a chronic migraine headache history which is not recorded below. She was seen by her family physician and was started on Cipro and was doing fairly well but then became more drowsy, a little more confused and she was brought to the hospital by her daughter for this confusional state. CT of the head was negative. The examination actually revealed her to be alert, oriented in 3 spheres and have no focal findings other than her neuropathy. The daughter claims she was having some hallucinations. The patient has denied this, but whatever the case, she is here now feeling better and neurology has been called for advice. Laboratory studies have been largely unremarkable. The urine looks clean. Cultures are of course pending and chemistry screen shows some mild hyperammonemia of 42. FAMILY HISTORY: Positive for diabetes, cancer, gallbladder disease, heart disease and hypertension. SOCIAL HISTORY: Reveals her to be a smoker in the past. She does not use alcohol. She is . She lives alone. She is chronically disabled, needs to use a walker for ambulation and has done so for years. Her immunizations are up to date. She has no history of drug resistant organisms. ALLERGIES: SHE HAS EXTENSIVE ALLERGIES TO FENTANYL, ZOLPIDEM, METHOCARBAMOL AND PROPOXYPHENE WITH METHOCARBAMOL GIVING HER MILD DELIRIUM. MEDICATIONS: At home include albuterol, Abilify, aspirin, atorvastatin, Invokana, Klonopin, docusate, famotidine, furosemide, gabapentin 600 mg b.i.d., hydroxyzine, Isordil, lactulose for hepatic encephalopathy, Lamictal 100 mg in the morning, 50 mg at bedtime, levothyroxine, lisinopril, metformin, metoprolol, morphine, nitroglycerin, omeprazole, trazodone, Effexor, Cipro which she was taking on admission. P.r.n. medications include dicyclomine, Zofran and oxycodone. REVIEW OF SYSTEMS: Reveals fairly stable weight and no new issues referable to the head, eyes, ears, nose and throat. She does have the lethargy, confusion and perhaps hallucinations, although she denies them over the past few days, correlating with the treatment of her urinary tract infection with Cipro. Otherwise, she has had no new cardiovascular, pulmonary, gastrointestinal, genitourinary, musculoskeletal symptoms and her neurologic review of systems reveals only the neuropathy/radiculopathy which is stable and has not progressed nor has it improved. PHYSICAL EXAMINATION: VITAL SIGNS: On admission, her blood pressure was noted to be 109/62, pulse was 65, respirations were 18. She had a temperature of 37. GENERAL: She is moderately over nourished. HEENT: There were no cranial deformities. Ocular fundi were poorly seen. Extraocular movements were normal. Speech was clear. There were no carotid bruits. LUNGS: Clear. HEART: Had a regular rhythm. No murmurs were heard. ABDOMEN: Soft, nontender with an exception of some mild tenderness in all quadrants, according to Dr. Guevara's exam. EXTREMITIES: Revealed a scar from the prior total knee procedure on the right and otherwise revealed good pulses and no edema. NEUROLOGIC: She is awake, alert, oriented in 3 spheres, knows my name, can recount her past history with a great degree of clarity, denies any hallucinations. She has normal extraocular movements. Normal facial motility and strength, clear speech. Tongue protrudes in the midline. Neck flexor strength is normal. I do not hear any carotid bruits. There is if at most a minimal tremor of the outstretched hands. I do not see any asterixis. There is no [id number] or point to point dysmetria. Heel to chin testing in lower extremities is difficult because of her distal weakness, but she can perform it. She is areflexic at the knees, ankles, hyperreflexic in the upper extremities. Toes were neutral. She has very minimal antigravity strength in dorsiflexion of the feet and in plantar flexion and proximal muscles are a little more strong with about 4/5 strength in the quadriceps and hamstring groups. The upper extremities have absolutely no weakness, atrophy or fasciculations. Sensory examination shows loss of vibration, temperature, pinprick and proprioception below the mid calves and was normal in the upper extremities. At this point, Angelina may have had a Cipro induced encephalopathy. The role of her mild elevation of the ammonia is not clear. It is possible the stress of the urinary tract infection and/or the Cipro caused a transient bump in her ammonia. My suggestion would be to check an EEG tomorrow, I have already put the order in, although I do not think we are going to see any triphasic waves or any other abnormalities, observe her, consider stopping the Cipro, reculturing her and considering another antibiotic, which might have less propensity to produce encephalopathy. Jessica Delgado and Jessica Duffy will be around tomorrow to make rounds and check on her, but I do not think she is going to need more than 1 additional neurologic visit and I will see her in the office as scheduled previously. REINA
[2017-02-02] MEDS: TRAZODONE HCL 50 MG TAB PO SCH (21:35)
[2017-02-02] MEDS: ARIPIprazole 1 MG/ML ORAL SOLN 150 ML BTL PO SCH (21:35)
[2017-02-02] MEDS: ATORVASTATIN 40 MG TAB PO SCH (21:35)
[2017-02-02] MEDS: CLONAZEPAM 0.5 MG TAB PO SCH (21:35)
[2017-02-02] MEDS: FAMOTIDINE 20 MG TAB PO SCH (21:36)
[2017-02-03] VITALS (8 sets, daily range): BP systolic 112–150; BP diastolic 65–99; PULSE 62–78; TEMP 36.5–38.6; O2SAT 93–96
[2017-02-03] MEDS: PIPERACILL/TAZOBAC IV 3.375 GM in DEXTROSE 5% 100ML 100 ML IV SCH (03:06)
[2017-02-03] MEDS: OXYCODONE HCL IR 5 MG TAB (IMMEDIATE RELEASE) PO PRN (03:17)
[2017-02-03] MEDS: LEVOTHYROXINE 88 MCG TAB PO SCH (05:29)
[2017-02-03 06:33] LABS: BASO % 0.4 %; BASO ABS # 0.03 K/uL (0-0.2); COMPLETE YES; EOS % 4.5 %; HEMATOCRIT 39.6 % (37-47); IG% 0.3 %; LYMPH % 31.3 %; LYMPH ABS # 2.22 K/uL (1.2-3.4); MEAN CORPUSCULAR HEMOGLOBIN 23.8 pg (25-34); MEAN CORPUSCULAR HGB CONC 30.6 g/dl (32-36); MEAN PLATELET VOLUME 10.4 fL (7.4-10.4); MONO % 9.7 %; NEUT % 53.8 %; PLATELET COUNT 123 K/uL (130-400); RED BLOOD COUNT 5.08 M/uL (4.2-5.4)
[2017-02-03 07:03] LABS: BUN/CREATININE RATIO 4.5 (10-20); CALCIUM 8.8 mg/dl (8.5-10.1); CREATININE 0.97 mg/dl (0.60-1.20); MAGNESIUM 2.5 mg/dl (1.8-2.4); POTASSIUM 4.3 mmol/L (3.5-5.1)
[2017-02-03] MEDS: METOPROLOL SUCC 25MG EXT REL TAB PO SCH (07:40)
[2017-02-03] MEDS: GABAPENTIN 600 MG TAB PO SCH ×2 (07:40→21:23)
[2017-02-03] MEDS: ISOSORBIDE MONONITRATE 30 MG TABCR PO SCH (07:40)
[2017-02-03] MEDS: ASPIRIN 81 MG ECTAB PO SCH (07:40)
[2017-02-03] MEDS: DOCUSATE SODIUM 100 MG CAP PO SCH (07:40)
[2017-02-03] MEDS: LACTULOSE SYRUP 30 GM/45 ML UDP PO SCH ×3 (07:41→19:49)
[2017-02-03] MEDS: ALBUTEROL HFA 8 GM INHALER INH SCH ×2 (07:41→08:26)
[2017-02-03] MEDS: CLONAZEPAM 0.5 MG TAB PO SCH ×2 (07:42→19:49)
[2017-02-03] MEDS: LISINOPRIL 2.5 MG TAB PO SCH (07:43)
[2017-02-03] MEDS: MoRPHine SULFATE CR 15 MG TAB (MS CONTIN) PO SCH ×2 (07:43→21:23)
[2017-02-03] MEDS: VENLAFAXINE HCL XR 150 MG CAPXR PO SCH (07:44)
[2017-02-03] MEDS: INSULIN ASPART 100 UNITS/ML 3 ML PEN SC SCH ×4 (07:46→20:18)
--- NOTE | 2017-02-03 08:13 | Clinical Documentation Query ---
DONG Cote : CLINICAL DOCUMENTATION QUERY QUERY 1 OF 2 Patient is a 66 year female admitted for evaluation and treatment of confusion, memory problems, headache, and dizziness. This is in the setting of ongoing treatment of a UTI. IM documentation includes "possible hepatic encephalopathy". Neurology documentation includes "Cipro induced encephalopathy". She is being treated with Zosyn IV. As appropriate, consider documentation as suggested below that encompasses both statements as outlined above. Thank you. In your clinical opinion is this patient being managed for: ( X ) Metabolic encephalopathy due to hyperammonemia and/or UTI ( ) Other explanation of clinical findings (Please Explain) ( ) Unable to determine (Please Define) ( ) Need to Discuss ( ) Not Agree The medical record reflects the following clinical findings, treatment, and risk factors. Clinical Indicators: As above Treatment: IV Zosyn, discontinuation of Ciprofloxacin Risk Factors: UTI, GONZALEZ, Ciprofloxacin use IF IN AGREEMENT, YOU MUST DOCUMENT ABOVE DIAGNOSTIC STATEMENT IN DAILY PROGRESS NOTES AND DISCHARGE SUMMARY. This document is not part of the patient's record. Thank You, Vincent Mccullough, RN [phone]
[2017-02-03] MEDS ORDERED: NURSING DECISION MEDICATION ORDER SCH (08:30)
[2017-02-03] MEDS ORDERED: ALBUTEROL HFA 8 GM INHALER INH PRN (08:45)
--- NOTE | 2017-02-03 09:04 | Progress Note ---
Medicine Progress Note Date & Time of Visit: Feb 03, 2017 at 09:04. Subjective patient seen resting in bed, comfortable states she feels that her thinking is less foggy today no confusion, hallucinations states her generalized abdominal discomfort is still present- mild no nausea (+) BMs no other symptoms Objective Last 8 Hrs Date Time Temp Pulse Resp B/P (MAP) Pulse Ox O2 Delivery O2 Flow Rate FiO2 02/03/17 08:00 Room Air 02/03/17 07:25 37.0 62 20 122/78 (93) 96 Room Air 02/03/17 04:20 36.6 76 18 125/65 (85) 96 02/03/17 04:02 Room Air Physical Exam: General- oriented x 3, not in distress, speaks in sentences with no effort Eyes- anicteric Neck- no JVD Lungs- clear breath sounds no rales/wheezes bilaterally Heart- regular rhythm; no murmur, normal rate Abdomen- normal bowel sounds, soft, nontender Extremities- no pretibial edema, no calf tenderness Neuro- alert, oriented x 3; sensation left arm> right arm, no other focal neuro deficits Skin- warm & dry Laboratory Results: Last 24 Hours Test 02/02/17 11:51 02/02/17 16:12 02/02/17 20:07 02/03/17 05:32 Bedside Glucose 173 mg/dl 161 mg/dl 179 mg/dl White Blood Count 7.10 K/uL Red Blood Count 5.08 M/uL Hemoglobin 12.1 g/dL Hematocrit 39.6 % Mean Corpuscular Volume 78.0 fL Mean Corpuscular Hemoglobin 23.8 pg Mean Corpuscular Hemoglobin Concent 30.6 g/dl Platelet Count 123 K/uL Mean Platelet Volume 10.4 fL Neutrophils (%) (Auto) 53.8 % Lymphocytes (%) (Auto) 31.3 % Monocytes (%) (Auto) 9.7 % Eosinophils (%) (Auto) 4.5 % Basophils (%) (Auto) 0.4 % Neutrophils # (Auto) 3.82 K/uL Lymphocytes # (Auto) 2.22 K/uL Monocytes # (Auto) 0.69 K/uL Eosinophils # (Auto) 0.32 K/uL Basophils # (Auto) 0.03 K/uL RDW Standard Deviation 48.6 fL RDW Coefficient of Variation 17.0 % Immature Granulocyte % (Auto) 0.3 % Immature Granulocyte # (Auto) 0.02 K/uL Sodium Level 137 mmol/L Potassium Level 4.3 mmol/L Chloride Level 103 mmol/L Carbon Dioxide Level 30 mmol/L Anion Gap 4.0 mmol/L Blood Urea Nitrogen 4 mg/dl Creatinine 0.97 mg/dl Est Creatinine Clear Calc Drug Dose 71.0 ml/min Estimated GFR () 70.0 Estimated GFR (Non- 60.4 BUN/Creatinine Ratio 4.5 Random Glucose 176 mg/dl Calcium Level 8.8 mg/dl Magnesium Level 2.5 mg/dl Test 02/03/17 06:27 02/03/17 08:58 Bedside Glucose 181 mg/dl Assessment & Plan 66 year old female with history of CAD s/p Stent, DM, HTN, GONZALEZ, GERD, Bipolar, Chronic Pain presenting with altered mental status. ALTERED MENTAL STATUS- EPISODE OF CONFUSION likely from HEPATIC ENCEPHALOPATHY FROM MEDICATIONS? - mental status improving daily - patient not taking Lactulose, resumed ammonia 20--> 42--> 18 continue Lactulose GI consulted, agree with lactulose may need Rifaximin as outpatient if not adequate - resumed usual Morphine, Oxy, Psych Meds monitor POSSIBLE UTI - was started last week with Cipro for UTI symptoms no improvement - afebrile, no leukocytosis - blood and urine cultures: negative - empiric Zosyn IV Day 2--> changed to Ceftri Day 1 CVA ruled out - CT head negative patient declines MRI repeat CT head in AM: negative already on Aspirin EEG negative appreciate Neuro input ABDOMINAL PAIN from CHRONIC NARCOTICS? - CT abdomen unrevealing - (+) BMs - GI consulted Bentyl started ELEVATED LACTIC ACID -- resolved CAD, S/P STENT - stable DM - ISS HTN - cont usual meds GERD - PPI Disposition - pending - PT/OT ordered - anticipate d/c home when medically stable Full code per patient DVT proph Lovenox SCDs VTE Prophylaxis VTE Risk Assessment Done? Y/N: Yes Risk Level: Moderate Given or contraindicated: SCD's Current Inpatient Medications: Current Inpatient Medications Medications (Trade) Dose Ordered Sig/Natalya Route Start Time Stop Time Status Last Admin Dose Admin Lactulose (Chronulac Syrup) 30 gm TID PO 02/01/17 21:00 03/03/17 20:59 02/03/17 07:41 30 GM Bisacodyl (Dulcolax Supp) 10 mg DAILY PRN VA 02/01/17 18:30 03/03/17 18:29 Pantoprazole Sodium 40 mg/ Syringe 10 ml @ 5 mls/min DAILY@11 IV 02/02/17 11:00 03/04/17 10:59 02/02/17 09:24 5 MLS/MIN Insulin Aspart (novoLOG ASPART) SLIDING SCALE If C... ACHS SC 02/01/17 21:00 03/03/17 20:59 02/03/17 07:46 5 UNITS Glucose (Glucose 40% Gel) 15-30 GRAMS 15 GRAMS... UD PRN PO 02/01/17 18:45 03/03/17 18:44 Glucose (Glucose Chew Tab) 4-8 Tablets 4 Tabl... UD PRN PO 02/01/17 18:45 03/03/17 18:44 Dextrose (Dextrose 50% 50ML Syringe) 25-50ML OF 50% DW IV FOR... UD PRN IV 02/01/17 18:45 03/03/17 18:44 Glucagon (Glucagon Inj) 1 mg UD PRN SQ 02/01/17 18:45 03/03/17 18:44 Aspirin (Ecotrin Tab) 81 mg QAM PO 02/02/17 09:00 03/04/17 08:59 02/03/17 07:40 81 MG Atorvastatin Calcium (Lipitor Tab) 80 mg QPM PO 02/01/17 21:00 03/03/17 20:59 02/02/17 21:35 80 MG Docusate Sodium (coLACE CAP) 100 mg QAM PO 02/02/17 09:00 03/04/17 08:59 02/03/17 07:40 100 MG Gabapentin (Neurontin Tab) 600 mg BID PO 02/01/17 21:00 03/03/17 20:59 02/03/17 07:40 600 MG Isosorbide Mononitrate (Imdur Ext Rel Tab) 30 mg QAM PO 02/02/17 09:00 03/04/17 08:59 02/03/17 07:40 30 MG Lamotrigine (Lamictal Tab) 25 mg QAM PO 02/02/17 09:00 03/04/17 08:59 02/03/17 07:40 25 MG Lamotrigine (Lamictal Tab) 100 mg QAM PO 02/02/17 09:00 03/04/17 08:59 02/03/17 07:40 100 MG Levothyroxine Sodium (Synthroid Tab) 88 mcg DAILYBB PO 02/02/17 06:00 03/04/17 06:59 02/03/17 05:29 88 MCG Lisinopril (Zestril Tab) 2.5 mg QAM PO 02/02/17 09:00 03/04/17 08:59 02/03/17 07:43 2.5 MG Metoprolol Succinate (Toprol Xl Tab) 75 mg QAM PO 02/02/17 09:00 03/04/17 08:59 02/03/17 07:40 75 MG Acetaminophen (Tylenol Tab) 650 mg Q4H PRN PO 02/01/17 19:00 03/03/17 18:59 02/02/17 03:10 650 MG Piperacillin Sod/ Tazobactam Sod (Consult) 1 ea UD PRN N/A 02/01/17 19:30 03/03/17 19:29 Trazodone HCl (Desyrel Tab) 150 mg HS PO 02/02/17 21:00 03/04/17 20:59 02/02/17 21:35 150 MG Morphine Sulfate (Oramorph Sr Tab) 30 mg Q12H PO 02/01/17 22:00 02/15/17 21:59 02/03/17 07:43 30 MG Ondansetron HCl (Zofran Inj) 4 mg Q6H PRN IV 02/02/17 06:00 03/04/17 05:59 02/02/17 09:05 4 MG Clonazepam (Klonopin Tab) 0.5 mg BID PO 02/02/17 21:00 03/04/17 20:59 02/03/17 07:42 0.5 MG Famotidine (Pepcid Tab) 40 mg HS PO 02/02/17 21:00 03/04/17 20:59 02/02/17 21:36 40 MG Lamotrigine (Lamictal Tab) 50 mg HS PO 02/02/17 21:00 03/04/17 20:59 02/02/17 21:35 50 MG Oxycodone HCl (Roxicodone Immediate Rel Tab) 5 mg BID PRN PO 02/02/17 09:45 02/16/17 09:44 02/03/17 03:17 5 MG Venlafaxine HCl (effeXOR EXTENDED REL CAP) 150 mg QAM PO 02/03/17 09:00 03/05/17 08:59 02/03/17 07:44 150 MG Magnesium Hydroxide (Milk Of Magnesia Susp) 30 ml Q6H PRN PO 02/02/17 09:45 03/04/17 09:44 02/02/17 17:38 30 ML Aripiprazole (Abilify Soln) 2 mg HS PO 02/02/17 21:00 03/04/17 20:59 02/02/17 21:35 2 MG Albuterol (Ventolin Hfa Inhaler) 2 puffs Q6H PRN INH 02/03/17 08:45 03/05/17 08:44 Ceftriaxone Sodium 1 gm/ Dextrose 50 ml @ 100 mls/hr Q24H IV 02/03/17 09:00 02/13/17 08:59 UNV
[2017-02-03] MEDS: CEFTRIAXONE SOD INJ 1 GM in DEXTROSE 5% ADD-VANTAGE 50ML 50 ML IV SCH (11:04)
[2017-02-03] MEDS: PANTOprazole INJ 40 MG in SYRINGE 0 ML IV SCH (11:04)
[2017-02-03] MEDS: ONDANSETRON INJ 2 MG/ML 2 ML VIAL IV PRN (11:05)
--- NOTE | 2017-02-03 11:54 | ELECTROENCEPHALOGRAPH REPORT ---
CLINICAL DIAGNOSIS: Transient confusion, possibly related to Cipro, possibly related to elevated ammonia level due to GONZALEZ. EEG DIAGNOSIS: Essentially normal during wakefulness. DESCRIPTION OF TRACING: This EEG was done as a bedside recording and is of good technical quality with few or no muscle movement artifacts. Simultaneous video analysis of patient movement and behavior was recorded. Photic stimulation was performed. Hyperventilation was not. Drowsiness and light sleep are not recorded. During wakefulness, there is evidence for a normal background rhythm in the alpha range of up to 9-10 Hz of maximum frequency and 30 microvolts of maximum amplitude. This is maximum posterior head regions and bilaterally symmetrical. Polymorphic mid frequency theta activity of modest voltage is seen over all head regions without clear focal or regional predominance. Anterior head region maximum bilaterally symmetrical low voltage fast activity in the beta range is present. Photic stimulation provoked some modest driving response without a photomyogenic or photoparoxysmal component. At no time during the waking tracing is there evidence for potentially epileptogenic activity in the form of polyspike or spike wave bursts, focal sharp waves or focal spikes and there is no evidence for triphasic wave activity which might be seen and elevated ammonia levels due to hepatic encephalopathy.
--- NOTE | 2017-02-03 13:12 | Gastrointestinal Consultation ---
Gastrointestinal Consultation Date of Consultation: Feb 03, 2017 Attending Physician: Dr. Guevara Consulting Physician: Dr. Jing Ghotra Reason for Consultation: abdominal pain, elevated ammonia History of Present Illness Patient is a 66 year old female with complex hx on multiple medications with hx of GONZALEZ (follows with Dr. Frias) admitted 2 days ago with altered mental status and mildly elevated ammonia level at 42 which is now improved with lactulose to 16. Pt does not recall events prior to admission. Chart indicates recent UTI, pt was finishing Cipro as out patient. Pt reports 1 month onset of abdominal pain described as an "ache", has diffuse tenderness all over abdomen, using bentyl seems to help. She denies N/V, last colonoscopy was 2013, 10 year f/u was recommended although pt notes Dr. Frias was discussing repeating colonoscopy in near future. CT in ED suggests moderate amount of stool in colon and rectum. She also is on chronic narcotic therapy for back pain. She has had multiple abdominal surgeries in past as well. Pt admits she had not been using her lactulose regularly due to it giving her diarrhea. She was taking this 1-2 times daily in past. Denies melena or hematochezia. Pt notes she has upcoming f/u appt with Dr. Frias in near future. Pt currently tolerating diet without difficulty. Moving bowels regularly with lactulose, last BM this morning. Blood and urine cultures negative thus far. 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 pain post surgery GONZALEZ CAD - hx of CABG and multiple cardiac stents DM2 hyperlipidemia HTN GERD hypothyroidism OCD Past Surgical History: CABD cardiac stent placements back surgery TAHBSO appendectomy cholecystectomy knee arthroplasty Family History Diabetes mellitus FHx: cancer FHx: gallbladder disease FHx: heart disease Hypertension Social History Smoking Status: Never Smoker Alcohol Use: none Drug Use: none Marital Status: Housing Status: lives alone Occupation Status: disabled Allergies Coded Allergies: Fentanyl (Verified Allergy, Unknown, PANIC WANTS TO RUN AND AGGRESSIVE, ) Zolpidem (Verified Adverse Reaction, Intermediate, confusion, 12/25/16) Methocarbamol (Verified Adverse Reaction, Mild, DELERIUM, 12/25/16) Propoxyphene (Verified Adverse Reaction, Mild, N&V, 12/25/16) Current Medications Home Meds and Scripts Medications Dose Route/Sig Max Daily Dose Days Date Category Dose Instructions Vistaril (Hydroxyzine Pamoate) 25 Mg Cap 25 Mg PO BID 02/01/17 Reported Furosemide 20 Mg Tab 20 Mg PO DAILY 02/01/17 Reported Lamictal (Lamotrigine) 25 Mg Tab 50 Mg PO HS 12/25/16 Reported Aspirin Ec (Aspirin) 81 Mg Tab 81 Mg PO QAM 12/25/16 Reported Trazodone (Trazodone HCl) 50 Mg Tab 150 Mg PO HS 12/25/16 Reported Docusate Sodium 100 Mg Cap 1 Cap PO QAM 7 12/25/16 Reported Ventolin Hfa (Albuterol) 200 Puffs/24155 Mcg Aers 2 Puffs INH Q6H 12/25/16 Reported Roxicodone Ir (Oxycodone HCl) 5 Mg Tab 5 Mg PO BID PRN 12/25/16 Reported Nitrostat (Nitroglycerin) 0.4 Mg/1 Tab Subl 1 Tab SL UD 10/13/16 Reported Dicyclomine HCl 10 Mg Cap 1 Cap PO QID PRN 10/13/16 Reported Lactulose (Lactulose (Encephalopathy)) 10 Gm/15 Ml Leesa 30 Ml PO Q2D 10/13/16 Reported PM Omeprazole 20 Mg Tab 1 Tab PO BID 10/13/16 Reported Zofran Odt (Ondansetron HCl) 8 Mg Soltab 8 Mg SL Q8 PRN 10/13/16 Reported Invokana (Canagliflozin) 100 Mg Tab 100 Mg PO QAM 10/13/16 Reported Lisinopril 2.5 Mg Tab 2.5 Mg PO QAM 10/12/15 Reported Abilify (Aripiprazole) 2 Mg Tab 2 Mg PO QPM 10/12/15 Reported Effexor Xr (Venlafaxine Hcl) 150 Mg Cap 150 Mg PO QAM 10/12/15 Reported TAKE THIS MEDICATION WITH FOOD. dosage is 225 mg daily Effexor Xr (Venlafaxine Hcl) 75 Mg Cap 75 Mg PO QAM 10/12/15 Reported TAKE THIS MEDICATION WITH FOOD. DOSAGE IS 225MG DAILY Toprol-Xl (Metoprolol Succinate) 50 Mg Tabcr 75 Mg PO QAM 03/29/15 Reported Imdur Ext Rel (Isosorbide Mononitrate) 30 Mg Ertab 30 Mg PO QAM 03/29/15 Reported Morphine Sulfate ER (Morphine Sulfate) 30 Mg Tabcr 30 Mg PO Q12 03/29/15 Reported Lamictal (Lamotrigine) 25 Mg Tab 25 Mg PO QAM 07/09/14 Reported along with 100mg tab to equal 125mg dose Klonopin (Clonazepam) 0.5 Mg Tab 0.5 Mg PO BID 07/09/14 Reported Glucophage (Metformin Hcl) 500 Mg Tab 1,000 Mg PO BIDM 07/09/14 Reported Pepcid (Famotidine) 40 Mg Tab 40 Mg PO HS 05/09/14 Reported Lipitor (Atorvastatin Calcium) 80 Mg Tab 80 Mg PO QPM 05/09/14 Reported Synthroid (Levothyroxine Sodium) 88 Mcg Tab 88 Mcg PO QAM 06/24/13 Reported Lamictal (Lamotrigine) 100 Mg Tab 100 Mg PO QAM 11/21/12 Reported Neurontin (Gabapentin) 600 Mg Tab 600 Mg PO BID 03/06/12 Reported Review of Systems Constitutional: No fever, No chills Eyes: No problem reported ENT: No hearing loss Respiratory: No cough, No shortness of breath Cardiac: No chest pain Abdomen: + see HPI Musculoskeletal: + problem reported (chronic back pain on narcotics) Female : + see HPI Neuro: + see HPI Psych: + problem reported (hx bipolar, depression and OCD) Heme: No abnormal bleeding/bruising Endo: No problem reported Skin: No rash Physical Exam Date Time Temp Pulse Resp B/P (MAP) Pulse Ox O2 Delivery O2 Flow Rate FiO2 02/03/17 10:08 37.0 62 20 96 02/03/17 10:05 Room Air 02/03/17 10:05 36.5 68 22 112/76 (88) 96 Room Air 02/03/17 08:00 Room Air 02/03/17 07:25 37.0 62 20 122/78 (93) 96 Room Air 02/03/17 04:20 36.6 76 18 125/65 (85) 96 02/03/17 04:02 Room Air 02/03/17 00:04 36.6 69 18 143/65 (91) 94 Room Air 02/03/17 00:00 Room Air 02/02/17 20:00 Room Air 02/02/17 19:21 36.5 63 18 99/61 (74) 98 Room Air 02/02/17 16:03 Room Air 02/02/17 15:30 36.3 63 17 105/61 (76) 93 Room Air General Appearance: WD/WN, no apparent distress Eyes: normal inspection, PERRL ENT: hearing grossly normal Neck: supple Respiratory/Chest: lungs clear, normal breath sounds Cardiovascular: regular rate, rhythm, + systolic murmur Abdomen: normal bowel sounds, soft (normal bowel sounds, mild diffuse tenderness over entire abdomen without rebound or guarding) Extremities: normal range of motion Neurologic/Psych: alert, normal mood/affect, oriented x 3 Skin: normal color, no jaundice Laboratory Results Last 24 Hours Test 02/02/17 16:12 02/02/17 20:07 02/03/17 05:32 02/03/17 06:27 Bedside Glucose 161 mg/dl 179 mg/dl 181 mg/dl White Blood Count 7.10 K/uL Red Blood Count 5.08 M/uL Hemoglobin 12.1 g/dL Hematocrit 39.6 % Mean Corpuscular Volume 78.0 fL Mean Corpuscular Hemoglobin 23.8 pg Mean Corpuscular Hemoglobin Concent 30.6 g/dl Platelet Count 123 K/uL Mean Platelet Volume 10.4 fL Neutrophils (%) (Auto) 53.8 % Lymphocytes (%) (Auto) 31.3 % Monocytes (%) (Auto) 9.7 % Eosinophils (%) (Auto) 4.5 % Basophils (%) (Auto) 0.4 % Neutrophils # (Auto) 3.82 K/uL Lymphocytes # (Auto) 2.22 K/uL Monocytes # (Auto) 0.69 K/uL Eosinophils # (Auto) 0.32 K/uL Basophils # (Auto) 0.03 K/uL RDW Standard Deviation 48.6 fL RDW Coefficient of Variation 17.0 % Immature Granulocyte % (Auto) 0.3 % Immature Granulocyte # (Auto) 0.02 K/uL Sodium Level 137 mmol/L Potassium Level 4.3 mmol/L Chloride Level 103 mmol/L Carbon Dioxide Level 30 mmol/L Anion Gap 4.0 mmol/L Blood Urea Nitrogen 4 mg/dl Creatinine 0.97 mg/dl Est Creatinine Clear Calc Drug Dose 71.0 ml/min Estimated GFR () 70.0 Estimated GFR (Non- 60.4 BUN/Creatinine Ratio 4.5 Random Glucose 176 mg/dl Calcium Level 8.8 mg/dl Magnesium Level 2.5 mg/dl Test 02/03/17 08:58 02/03/17 11:36 Ammonia 16.0 umol/L Bedside Glucose 188 mg/dl Impression Patient is a 66 year old female with hx of GONZALEZ admitted with altered mental status, abdominal pain and elevated ammonia level Plan Ammonia level now improved. mentation has improved, suspect altered mental status may have been multifactoral given underlying liver disease, not using lactulose regularly, chronic narcotic therapy and poly-pharmacy also had recent UTI GI recommendations are to continue Lactulose to titrate BMs to 2-3 times per day. If pt fails lactulose, consideration can be given to Xifaxan 550mg BID ( would defer decision to Dr. Frias as out patient as long as she continues to improve) Regarding her abdominal pain - likely secondary to narcotic induced constipation , consider miralax daily, Pt responded to Bentyl in past (actually has active rx that she carries in her purse) - will give trial of Bentyl 20mg TID PRN for abdominal pain, ok to continue this out patient. Pt mentioned she may be getting repeat screening colonoscopy as out patient in near future. Has follow up appt in near future with Dr. Frias. GI recommends continuing to f/u with Dr. Frias as planned, consider out patient colonoscopy for abdominal pain if sympoms don't resolve. GI will sign off, continue GI f/u as out patient, please call with questions. I saw and evaluated the patient. We are consult at for evaluation of a history of cirrhosis. She did present with altered mental status with a mild elevation of her serum ammonia. She notes that she is almost back to her usual state of health. Physical examination No obvious distress, no abdominal tenderness Impression: Patient with a history of cirrhosis related to fatty infiltration of the liver. I'm not certain if her mental status changes were related to hepatic encephalopathy but would continue with lactulose as were doing. I wonder if some of her symptoms may be related to the numerous medications including narcotics which she is taking. Recommendations Continue lactulose 1 time daily Patient to follow up with Dr. Frias as outpatient consider discontinuation of narcotic analgesics
--- NOTE | 2017-02-03 14:11 | Neurology Progress Notes ---
Neurology Progress Note Date of Service Feb 03, 2017. Subjective Dr Lemus has seen Angelina over the past 35 years off and on. She is a 66 year old female which chronic LBP, bipolar, chronic non EtOH steatohepatitis, CAD, DVT type 2 DM, DL, HTN, GERD, hypothyroid, OCD. She was seen in [place] in the early when she presented with acute lower extremity weakness syndrome whose causation was never established. 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 she states she presented to the ED because of foggy thinking. She lives with her daughter and her is close by. She has had multiple falls but walks with a walker at baseline. She was found to have a UTI and she also stopped taking her lactulose due to diarrhea. denies CP, SOB, abdomen pain, vomiting, increased weakness. one sided numbness tingling. +nausea. +diarrhea Objective Date Time Temp Pulse Resp B/P (MAP) Pulse Ox O2 Delivery O2 Flow Rate FiO2 02/03/17 10:08 37.0 62 20 96 02/03/17 10:05 Room Air 02/03/17 10:05 36.5 68 22 112/76 (88) 96 Room Air 02/03/17 08:00 Room Air 02/03/17 07:25 37.0 62 20 122/78 (93) 96 Room Air 02/03/17 04:20 36.6 76 18 125/65 (85) 96 02/03/17 04:02 Room Air 02/03/17 00:04 36.6 69 18 143/65 (91) 94 Room Air 02/03/17 00:00 Room Air 02/02/17 20:00 Room Air 02/02/17 19:21 36.5 63 18 99/61 (74) 98 Room Air 02/02/17 16:03 Room Air 02/02/17 15:30 36.3 63 17 105/61 (76) 93 Room Air Last 24 Hours Test 02/02/17 16:12 02/02/17 20:07 02/03/17 05:32 02/03/17 06:27 Bedside Glucose 161 mg/dl 179 mg/dl 181 mg/dl White Blood Count 7.10 K/uL Red Blood Count 5.08 M/uL Hemoglobin 12.1 g/dL Hematocrit 39.6 % Mean Corpuscular Volume 78.0 fL Mean Corpuscular Hemoglobin 23.8 pg Mean Corpuscular Hemoglobin Concent 30.6 g/dl Platelet Count 123 K/uL Mean Platelet Volume 10.4 fL Neutrophils (%) (Auto) 53.8 % Lymphocytes (%) (Auto) 31.3 % Monocytes (%) (Auto) 9.7 % Eosinophils (%) (Auto) 4.5 % Basophils (%) (Auto) 0.4 % Neutrophils # (Auto) 3.82 K/uL Lymphocytes # (Auto) 2.22 K/uL Monocytes # (Auto) 0.69 K/uL Eosinophils # (Auto) 0.32 K/uL Basophils # (Auto) 0.03 K/uL RDW Standard Deviation 48.6 fL RDW Coefficient of Variation 17.0 % Immature Granulocyte % (Auto) 0.3 % Immature Granulocyte # (Auto) 0.02 K/uL Sodium Level 137 mmol/L Potassium Level 4.3 mmol/L Chloride Level 103 mmol/L Carbon Dioxide Level 30 mmol/L Anion Gap 4.0 mmol/L Blood Urea Nitrogen 4 mg/dl Creatinine 0.97 mg/dl Est Creatinine Clear Calc Drug Dose 71.0 ml/min Estimated GFR () 70.0 Estimated GFR (Non- 60.4 BUN/Creatinine Ratio 4.5 Random Glucose 176 mg/dl Calcium Level 8.8 mg/dl Magnesium Level 2.5 mg/dl Test 02/03/17 08:58 02/03/17 11:36 Ammonia 16.0 umol/L Bedside Glucose 188 mg/dl Imaging: CT head- No acute intracranial abnormality. No change from the prior study EEG- At no time during the waking tracing is there evidence for potentially epileptogenic activity in the form of polyspike or spike wave bursts, focal sharp waves or focal spikes and there is no evidence for triphasic wave activity which might be seen and elevated ammonia levels due to hepatic encephalopathy. Exam: Physical Exam: Constitutional: appearance nourished, healthy and normal Ears, Nose, Mouth and Throat: mucous membranes moist, no injection and skin normal, eyes normal Cardiovascular: normal S-1 and S-2 and regular rate and rhythm Respiratory: clear to auscultation (CTA) and no rales, rhonchi or wheeze Musculoskeletal: none pitting peripheral edema Skin: no stigmata of neurocutaneous disease noted and normal and intact Eyes: extraocular muscles intact (EOMI) and pupils equal, round and reactive to light (PERRL) NEUROLOGIC EXAMINATION: Mental status: Alert and interactive first states it is 2010, then corrects to 2016, knows that it is summer, thinks she is at [facility], knows she lives in [place] Oriented to person Speech fluent with no evidence of aphasia Cranial Nerves smile eye brow raise symmetric, tongue midline, right hand asterixis with extension Reflexes: brisk reflexes UE, decreased bilaterally LE, plantar neutral Sensory: decreased to cool and vibration and GT proprioception Coordination: finger to nose without bi pass Gait/Stance: Posture sitting up in bed. Motor: Negative for pronator drift of out stretched arms with eyes closed. 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 ACHS SC 02/01/17 21:00 03/03/17 20:59 02/03/17 12:55 3 UNITS Glucose (Glucose 40% Gel) 15-30 GRAMS 15 GRAMS... UD PRN PO 02/01/17 18:45 03/03/17 18:44 Glucose (Glucose Chew Tab) 4-8 Tablets 4 Tabl... UD PRN PO 02/01/17 18:45 03/03/17 18:44 Dextrose (Dextrose 50% 50ML Syringe) 25-50ML OF 50% DW IV FOR... UD PRN IV 02/01/17 18:45 03/03/17 18:44 Glucagon (Glucagon Inj) 1 mg UD PRN SQ 02/01/17 18:45 03/03/17 18:44 Aspirin (Ecotrin Tab) 81 mg QAM PO 02/02/17 09:00 03/04/17 08:59 02/03/17 07:40 81 MG Atorvastatin Calcium (Lipitor Tab) 80 mg QPM PO 02/01/17 21:00 03/03/17 20:59 02/02/17 21:35 80 MG Docusate Sodium (coLACE CAP) 100 mg QAM PO 02/02/17 09:00 03/04/17 08:59 02/03/17 07:40 100 MG Gabapentin (Neurontin Tab) 600 mg BID PO 02/01/17 21:00 03/03/17 20:59 02/03/17 07:40 600 MG Isosorbide Mononitrate (Imdur Ext Rel Tab) 30 mg QAM PO 02/02/17 09:00 03/04/17 08:59 02/03/17 07:40 30 MG Lamotrigine (Lamictal Tab) 25 mg QAM PO 02/02/17 09:00 03/04/17 08:59 02/03/17 07:40 25 MG Lamotrigine (Lamictal Tab) 100 mg QAM PO 02/02/17 09:00 03/04/17 08:59 02/03/17 07:40 100 MG Levothyroxine Sodium (Synthroid Tab) 88 mcg DAILYBB PO 02/02/17 06:00 03/04/17 06:59 02/03/17 05:29 88 MCG Lisinopril (Zestril Tab) 2.5 mg QAM PO 02/02/17 09:00 03/04/17 08:59 02/03/17 07:43 2.5 MG Metoprolol Succinate (Toprol Xl Tab) 75 mg QAM PO 02/02/17 09:00 03/04/17 08:59 02/03/17 07:40 75 MG Acetaminophen (Tylenol Tab) 650 mg Q4H PRN PO 02/01/17 19:00 03/03/17 18:59 02/02/17 03:10 650 MG Trazodone HCl (Desyrel Tab) 150 mg HS PO 02/02/17 21:00 03/04/17 20:59 02/02/17 21:35 150 MG Morphine Sulfate (Oramorph Sr Tab) 30 mg Q12H PO 02/01/17 22:00 02/15/17 21:59 02/03/17 07:43 30 MG Ondansetron HCl (Zofran Inj) 4 mg Q6H PRN IV 02/02/17 06:00 03/04/17 05:59 02/03/17 11:05 4 MG Clonazepam (Klonopin Tab) 0.5 mg BID PO 02/02/17 21:00 03/04/17 20:59 02/03/17 07:42 0.5 MG Famotidine (Pepcid Tab) 40 mg HS PO 02/02/17 21:00 03/04/17 20:59 02/02/17 21:36 40 MG Lamotrigine (Lamictal Tab) 50 mg HS PO 02/02/17 21:00 03/04/17 20:59 02/02/17 21:35 50 MG Oxycodone HCl (Roxicodone Immediate Rel Tab) 5 mg BID PRN PO 02/02/17 09:45 02/16/17 09:44 02/03/17 03:17 5 MG Venlafaxine HCl (effeXOR EXTENDED REL CAP) 150 mg QAM PO 02/03/17 09:00 03/05/17 08:59 02/03/17 07:44 150 MG Magnesium Hydroxide (Milk Of Magnesia Susp) 30 ml Q6H PRN PO 02/02/17 09:45 03/04/17 09:44 02/02/17 17:38 30 ML Aripiprazole (Abilify Soln) 2 mg HS PO 02/02/17 21:00 03/04/17 20:59 02/02/17 21:35 2 MG Albuterol (Ventolin Hfa Inhaler) 2 puffs Q6H PRN INH 02/03/17 08:45 03/05/17 08:44 Ceftriaxone Sodium 1 gm/ Dextrose 50 ml @ 100 mls/hr Q24H IV 02/03/17 10:00 02/13/17 09:59 02/03/17 11:04 100 MLS/HR Dicyclomine HCl (Bentyl Cap) 20 mg TID PRN PO 02/03/17 11:30 03/05/17 11:29 Impression 66 year old female with a complex medical history presents with encephalopathy with elevated Ammonia and UTI Plan 1. PT/OT for discharge needs 2. appears to be improving 3. continue lactulose per GI for Ammonia level 4. home safety evaluation may be needed with repeated falls, fall risk 5. cipro was changed to ceftriaxone 6. appointment already established as out patient with Dr Lemus, neurology, follow up as scheduled I have seen and discussed above patient with Dr Jessica Duffy, neurology Pt seen in presence of daughter. Pt is sleepy but arousable oriented to person, place. Speech nonaphasic, no facial asymm and no asymmetric weakness . Suspect polyfactorial change in MS related to UTI, poss cipro effect, GONZALEZ with noncompliance with lactulose. CT, small vessel ischemic changes. EEG no sz activity or triphasic waves. Pt sounds improved from admission, will continue to monitor. I would like to have pt have an MRI but she refuses due to severe claustrophobia. SACHA Duffy MD
[2017-02-03] MEDS ORDERED: ENOXAPARIN 40 MG/0.4 ML SYR SQ ONE (17:00)
[2017-02-03] MEDS: TRAZODONE HCL 50 MG TAB PO SCH (20:49)
[2017-02-03] MEDS: ARIPIprazole 1 MG/ML ORAL SOLN 150 ML BTL PO SCH (21:00)
[2017-02-03] MEDS: FAMOTIDINE 20 MG TAB PO SCH (21:00)
[2017-02-03] MEDS: ATORVASTATIN 40 MG TAB PO SCH (21:00)
[2017-02-04] VITALS (7 sets, daily range): BP systolic 91–145; BP diastolic 56–76; PULSE 68–85; TEMP 36.7–37.1; O2SAT 92–98
[2017-02-04] MEDS: ACETAMINOPHEN 325 MG TAB PO PRN ×3 (05:02→19:57)
[2017-02-04 06:04] LABS: MEAN CORPUSCULAR HGB CONC 31.1 g/dl (32-36)
[2017-02-04 06:12] LABS: HEMATOCRIT 37.6 % (37-47); MEAN CELL VOLUME 76.9 fL (80-100); MEAN CORPUSCULAR HEMOGLOBIN 23.9 pg (25-34); RED BLOOD COUNT 4.89 M/uL (4.2-5.4)
[2017-02-04] MEDS: LEVOTHYROXINE 88 MCG TAB PO SCH (06:26)
[2017-02-04 06:28] LABS: PLATELET COUNT 114 K/uL (130-400)
[2017-02-04 06:29] LABS: BASO % 0.2 %; BASO ABS # 0.02 K/uL (0-0.2); COMPLETE YES; EOS % 0.7 %; IG% 0.4 %; LYMPH % 14.1 %; LYMPH ABS # 1.72 K/uL (1.2-3.4); NEUT % 76.6 %; PLT ESTIMATE DECREASED
[2017-02-04 06:39] LABS: BUN/CREATININE RATIO 7.5 (10-20); CALCIUM 8.6 mg/dl (8.5-10.1); CREATININE 0.88 mg/dl (0.60-1.20); POTASSIUM 3.8 mmol/L (3.5-5.1)
[2017-02-04] MEDS: LACTULOSE SYRUP 30 GM/45 ML UDP PO SCH ×3 (07:41→19:57)
[2017-02-04] MEDS: METOPROLOL SUCC 25MG EXT REL TAB PO SCH (07:49)
[2017-02-04] MEDS: CLONAZEPAM 0.5 MG TAB PO SCH ×2 (07:49→19:56)
[2017-02-04] MEDS: LISINOPRIL 2.5 MG TAB PO SCH (07:49)
[2017-02-04] MEDS: GABAPENTIN 600 MG TAB PO SCH ×2 (07:50→19:57)
[2017-02-04] MEDS: VENLAFAXINE HCL XR 150 MG CAPXR PO SCH (07:50)
[2017-02-04] MEDS: ISOSORBIDE MONONITRATE 30 MG TABCR PO SCH (07:50)
[2017-02-04] MEDS: ASPIRIN 81 MG ECTAB PO SCH (07:50)
[2017-02-04] MEDS: DOCUSATE SODIUM 100 MG CAP PO SCH (07:50)
[2017-02-04] MEDS: INSULIN ASPART 100 UNITS/ML 3 ML PEN SC SCH ×4 (08:31→20:50)
[2017-02-04] MEDS: CEFTRIAXONE SOD INJ 1 GM in DEXTROSE 5% ADD-VANTAGE 50ML 50 ML IV SCH (10:10)
[2017-02-04] MEDS: MoRPHine SULFATE CR 15 MG TAB (MS CONTIN) PO SCH ×2 (10:10→20:45)
[2017-02-04] MEDS: PANTOprazole INJ 40 MG in SYRINGE 0 ML IV SCH (10:56)
[2017-02-04] MEDS: ENOXAPARIN 40 MG/0.4 ML SYR SQ SCH (12:51)
[2017-02-04] MEDS: OXYCODONE HCL IR 5 MG TAB (IMMEDIATE RELEASE) PO PRN (12:51)
--- NOTE | 2017-02-04 13:59 | Neurology Progress Notes ---
Neurology Progress Note Date of Service Feb 04, 2017. Subjective Dr Lemus has seen Angelina over the past 35 years off and on. She is a 66 year old female which chronic LBP, bipolar, chronic non EtOH steatohepatitis, CAD, DVT type 2 DM, DL, HTN, GERD, hypothyroid, OCD. She was seen in [place] in the early when she presented with acute lower extremity weakness syndrome whose causation was never established. 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 She states she presented to the ED because of foggy thinking. She lives with her daughter and her is close by. She has had multiple falls but walks with a walker at baseline. She was found to have a UTI and she also stopped taking her lactulose due to diarrhea. Today she states she is feeling better. She states she feels like she is thinking clearer today. denies CP, SOB, abdomen pain, vomiting, increased weakness. one sided numbness tingling. +diarrhea but not as severe Objective Date Time Temp Pulse Resp B/P (MAP) Pulse Ox O2 Delivery O2 Flow Rate FiO2 02/04/17 11:45 36.8 68 20 91/56 (68) 98 Room Air 02/04/17 08:15 Room Air 02/04/17 07:51 37.1 81 18 115/73 (87) 94 Room Air 02/04/17 04:00 36.8 85 20 145/70 (95) 92 Room Air 02/04/17 00:15 37.1 85 20 122/76 (91) 92 Room Air 02/04/17 00:00 Room Air 02/03/17 20:00 Room Air 02/03/17 19:15 37.1 02/03/17 19:09 38.6 78 20 150/99 (116) 93 Room Air 02/03/17 16:00 Room Air 02/03/17 15:06 36.7 73 18 126/74 (91) 95 Room Air Last 24 Hours Test 02/03/17 16:38 02/03/17 20:15 02/04/17 05:33 02/04/17 07:41 Bedside Glucose 117 mg/dl 139 mg/dl 149 mg/dl White Blood Count 12.20 K/uL Red Blood Count 4.89 M/uL Hemoglobin 11.7 g/dL Hematocrit 37.6 % Mean Corpuscular Volume 76.9 fL Mean Corpuscular Hemoglobin 23.9 pg Mean Corpuscular Hemoglobin Concent 31.1 g/dl Platelet Count 114 K/uL Mean Platelet Volume 10.0 fL Neutrophils (%) (Auto) 76.6 % Lymphocytes (%) (Auto) 14.1 % Monocytes (%) (Auto) 8.0 % Eosinophils (%) (Auto) 0.7 % Basophils (%) (Auto) 0.2 % Neutrophils # (Auto) 9.35 K/uL Lymphocytes # (Auto) 1.72 K/uL Monocytes # (Auto) 0.97 K/uL Eosinophils # (Auto) 0.09 K/uL Basophils # (Auto) 0.02 K/uL RDW Standard Deviation 49.0 fL RDW Coefficient of Variation 17.4 % Immature Granulocyte % (Auto) 0.4 % Immature Granulocyte # (Auto) 0.05 K/uL Platelet Estimate DECREASED Sodium Level 133 mmol/L Potassium Level 3.8 mmol/L Chloride Level 100 mmol/L Carbon Dioxide Level 23 mmol/L Anion Gap 10.0 mmol/L Blood Urea Nitrogen 7 mg/dl Creatinine 0.88 mg/dl Est Creatinine Clear Calc Drug Dose 78.3 ml/min Estimated GFR () 78.8 Estimated GFR (Non- 68.0 BUN/Creatinine Ratio 7.5 Random Glucose 161 mg/dl Calcium Level 8.6 mg/dl Magnesium Level 2.0 mg/dl Test 02/04/17 11:39 Bedside Glucose 196 mg/dl Imaging: no new imaging Exam: Physical Exam: Constitutional: appearance nourished, healthy and normal Ears, Nose, Mouth and Throat: mucous membranes moist, no injection and skin normal, eyes normal Cardiovascular: normal S-1 and S-2 and regular rate and rhythm Respiratory: clear to auscultation (CTA) and no rales, rhonchi or wheeze Musculoskeletal: non pitting peripheral edema Skin: no stigmata of neurocutaneous disease noted and normal and intact Eyes: extraocular muscles intact (EOMI) and pupils equal, round and reactive to light (PERRL) NEUROLOGIC EXAMINATION: Mental status: Alert and interactive Oriented knows it is 2017 and that she is in the hospital in [place] Oriented to person Speech fluent with no evidence of aphasia Cranial Nerves smile eye brow raise symmetric, tongue midline Sensory: no deficit to light touch Coordination: finger to nose without bi pass, minimal asterixis right Gait/Stance: Posture normal sitting up in bed awake and alert when entering room Motor: Negative for pronator drift of out stretched arms with eyes closed. Strength: biceps triceps hand milk and cream grader 5/5 bilaterally 5/5 hip flex 5/5 bilaterally Current Inpatient Medications Medications (Trade) Dose Ordered Sig/Natalya Route Start Time Stop Time Status Last Admin Dose Admin Lactulose (Chronulac Syrup) 30 gm TID PO 02/01/17 21:00 03/03/17 20:59 02/03/17 07:41 30 GM Bisacodyl (Dulcolax Supp) 10 mg DAILY PRN TN 02/01/17 18:30 03/03/17 18:29 Pantoprazole Sodium 40 mg/ Syringe 10 ml @ 5 mls/min DAILY@11 IV 02/02/17 11:00 03/04/17 10:59 02/04/17 10:56 5 MLS/MIN Insulin Aspart (novoLOG ASPART) SLIDING SCALE If C... ACHS SC 02/01/17 21:00 03/03/17 20:59 02/04/17 12:52 4 UNITS Glucose (Glucose 40% Gel) 15-30 GRAMS 15 GRAMS... UD PRN PO 02/01/17 18:45 03/03/17 18:44 Glucose (Glucose Chew Tab) 4-8 Tablets 4 Tabl... UD PRN PO 02/01/17 18:45 03/03/17 18:44 Dextrose (Dextrose 50% 50ML Syringe) 25-50ML OF 50% DW IV FOR... UD PRN IV 02/01/17 18:45 03/03/17 18:44 Glucagon (Glucagon Inj) 1 mg UD PRN SQ 02/01/17 18:45 03/03/17 18:44 Aspirin (Ecotrin Tab) 81 mg QAM PO 02/02/17 09:00 03/04/17 08:59 02/04/17 07:50 81 MG Atorvastatin Calcium (Lipitor Tab) 80 mg QPM PO 02/01/17 21:00 03/03/17 20:59 02/02/17 21:35 80 MG Docusate Sodium (coLACE CAP) 100 mg QAM PO 02/02/17 09:00 03/04/17 08:59 02/04/17 07:50 100 MG Gabapentin (Neurontin Tab) 600 mg BID PO 02/01/17 21:00 03/03/17 20:59 02/04/17 07:50 600 MG Isosorbide Mononitrate (Imdur Ext Rel Tab) 30 mg QAM PO 02/02/17 09:00 03/04/17 08:59 02/04/17 07:50 30 MG Lamotrigine (Lamictal Tab) 25 mg QAM PO 02/02/17 09:00 03/04/17 08:59 02/04/17 07:50 25 MG Lamotrigine (Lamictal Tab) 100 mg QAM PO 02/02/17 09:00 03/04/17 08:59 02/04/17 07:50 100 MG Levothyroxine Sodium (Synthroid Tab) 88 mcg DAILYBB PO 02/02/17 06:00 03/04/17 06:59 02/04/17 06:26 88 MCG Lisinopril (Zestril Tab) 2.5 mg QAM PO 02/02/17 09:00 03/04/17 08:59 02/04/17 07:49 2.5 MG Metoprolol Succinate (Toprol Xl Tab) 75 mg QAM PO 02/02/17 09:00 03/04/17 08:59 02/04/17 07:49 75 MG Acetaminophen (Tylenol Tab) 650 mg Q4H PRN PO 02/01/17 19:00 03/03/17 18:59 02/04/17 05:02 650 MG Trazodone HCl (Desyrel Tab) 150 mg HS PO 02/02/17 21:00 03/04/17 20:59 02/02/17 21:35 150 MG Morphine Sulfate (Oramorph Sr Tab) 30 mg Q12H PO 02/01/17 22:00 02/15/17 21:59 02/04/17 10:10 30 MG Ondansetron HCl (Zofran Inj) 4 mg Q6H PRN IV 02/02/17 06:00 03/04/17 05:59 02/03/17 11:05 4 MG Clonazepam (Klonopin Tab) 0.5 mg BID PO 02/02/17 21:00 03/04/17 20:59 02/04/17 07:49 0.5 MG Famotidine (Pepcid Tab) 40 mg HS PO 02/02/17 21:00 03/04/17 20:59 02/02/17 21:36 40 MG Lamotrigine (Lamictal Tab) 50 mg HS PO 02/02/17 21:00 03/04/17 20:59 02/02/17 21:35 50 MG Oxycodone HCl (Roxicodone Immediate Rel Tab) 5 mg BID PRN PO 02/02/17 09:45 02/16/17 09:44 02/04/17 12:51 5 MG Venlafaxine HCl (effeXOR EXTENDED REL CAP) 150 mg QAM PO 02/03/17 09:00 03/05/17 08:59 02/04/17 07:50 150 MG Magnesium Hydroxide (Milk Of Magnesia Susp) 30 ml Q6H PRN PO 02/02/17 09:45 03/04/17 09:44 02/02/17 17:38 30 ML Aripiprazole (Abilify Soln) 2 mg HS PO 02/02/17 21:00 03/04/17 20:59 02/02/17 21:35 2 MG Albuterol (Ventolin Hfa Inhaler) 2 puffs Q6H PRN INH 02/03/17 08:45 03/05/17 08:44 Ceftriaxone Sodium 1 gm/ Dextrose 50 ml @ 100 mls/hr Q24H IV 02/03/17 10:00 02/13/17 09:59 02/04/17 10:10 100 MLS/HR Dicyclomine HCl (Bentyl Cap) 20 mg TID PRN PO 02/03/17 11:30 03/05/17 11:29 Enoxaparin Sodium (Lovenox Inj) 40 mg QAM SQ 02/04/17 12:00 03/06/17 11:59 02/04/17 12:51 40 MG Impression 66 year old female with a complex medical history presents with encephalopathy with elevated Ammonia and UTI Plan 1. PT/OT for discharge needs 2. appears to be improving 3. continue lactulose per GI for Ammonia level 4. home safety evaluation may be needed with repeated falls, fall risk 5. cipro was changed to ceftriaxone 6. appointment already established as out patient with Dr Lemus, neurology, follow up as scheduled I have seen and discussed above patient with Dr Jessica Duffy, neurology Pt seen and examined, much improved, awake, alert, exam nonfocal, distal lower ext weakness, still mild flap. Imp toxic metabolic encephalopathy, improved, will sign off. SACHA Duffy MD
[2017-02-04] MEDS ORDERED: DICYCLOMINE HCL 10 MG CAP PO ONE (16:45)
--- NOTE | 2017-02-04 16:51 | Progress Note ---
Medicine Progress Note Date & Time of Visit: Feb 04, 2017 at 16:46. Subjective patient seen resting in bed, comfortable alert, oriented however, states she has been seeing angels in the window, animals in her room today denies drowsiness, auditory hallucinations mild generalized abdominal discomfort but no nausea tolerating diet no other symptoms Objective Last 8 Hrs Date Time Temp Pulse Resp B/P (MAP) Pulse Ox O2 Delivery O2 Flow Rate FiO2 02/04/17 14:56 37.1 81 18 93/58 (70) 94 Room Air 02/04/17 11:45 36.8 68 20 91/56 (68) 98 Room Air Physical Exam: General- oriented x 3, not in distress, speaks in sentences with no effort Eyes- anicteric Neck- no JVD Lungs- clear BS, no rales/wheezes bilaterally Heart- regular rhythm; no murmur, normal rate Abdomen- normal bowel sounds, soft, nontender Extremities- no pretibial edema, no calf tenderness Neuro- alert, oriented x 3; sensation left arm> right arm, no other focal neuro deficits Skin- warm & dry Laboratory Results: Last 24 Hours Test 02/03/17 20:15 02/04/17 05:33 02/04/17 07:41 02/04/17 11:39 Bedside Glucose 139 mg/dl 149 mg/dl 196 mg/dl White Blood Count 12.20 K/uL Red Blood Count 4.89 M/uL Hemoglobin 11.7 g/dL Hematocrit 37.6 % Mean Corpuscular Volume 76.9 fL Mean Corpuscular Hemoglobin 23.9 pg Mean Corpuscular Hemoglobin Concent 31.1 g/dl Platelet Count 114 K/uL Mean Platelet Volume 10.0 fL Neutrophils (%) (Auto) 76.6 % Lymphocytes (%) (Auto) 14.1 % Monocytes (%) (Auto) 8.0 % Eosinophils (%) (Auto) 0.7 % Basophils (%) (Auto) 0.2 % Neutrophils # (Auto) 9.35 K/uL Lymphocytes # (Auto) 1.72 K/uL Monocytes # (Auto) 0.97 K/uL Eosinophils # (Auto) 0.09 K/uL Basophils # (Auto) 0.02 K/uL RDW Standard Deviation 49.0 fL RDW Coefficient of Variation 17.4 % Immature Granulocyte % (Auto) 0.4 % Immature Granulocyte # (Auto) 0.05 K/uL Platelet Estimate DECREASED Sodium Level 133 mmol/L Potassium Level 3.8 mmol/L Chloride Level 100 mmol/L Carbon Dioxide Level 23 mmol/L Anion Gap 10.0 mmol/L Blood Urea Nitrogen 7 mg/dl Creatinine 0.88 mg/dl Est Creatinine Clear Calc Drug Dose 78.3 ml/min Estimated GFR () 78.8 Estimated GFR (Non- 68.0 BUN/Creatinine Ratio 7.5 Random Glucose 161 mg/dl Calcium Level 8.6 mg/dl Magnesium Level 2.0 mg/dl Test 02/04/17 16:26 Bedside Glucose 116 mg/dl Assessment & Plan 66 year old female with history of CAD s/p Stent, DM, HTN, GONZALEZ, GERD, Bipolar, Chronic Pain presenting with altered mental status. ALTERED MENTAL STATUS- EPISODE OF CONFUSION LIKELY Metabolic encephalopathy due to hyperammonemia and/or UTI likely from HEPATIC ENCEPHALOPATHY FROM MEDICATIONS? - patient not taking Lactulose, resumed ammonia 20--> 42--> 18 - was improving, but today, reports hallucinations again has been refusing lactulose since yesterday noon discussed with patient the need for her to take the Lactulose patient verbalized understanding continue Lactulose GI consulted, agree with lactulose, recommend daily dose when discharge - decrease Morphine to daily PRN Oxy continue usual Psych Meds POSSIBLE UTI, Complicated - was started last week with Cipro for UTI symptoms, no urinalysis/urine culture done as outpatient no improvement with Cipro x few days - afebrile, no leukocytosis - blood and urine cultures: negative - empiric Zosyn IV Day 2--> changed to Ceftri Day 2 - will need to complete total of 7 days antibiotics CVA ruled out - CT head negative patient declines MRI repeat CT head in AM: negative already on Aspirin EEG negative appreciate Neuro input ABDOMINAL PAIN from CHRONIC NARCOTICS? - CT abdomen unrevealing - (+) BMs - GI consulted Bentyl PRN resumed ELEVATED LACTIC ACID -- resolved CAD, S/P STENT - stable DM - ISS HTN - cont usual meds GERD - PPI Disposition - pending - PT/OT ordered - anticipate d/c home when medically stable ff up with PCP Dr. Alexis Dougherty in 1 week Full code per patient DVT proph Lovenox SCDs VTE Prophylaxis VTE Risk Assessment Done? Y/N: Yes Risk Level: Moderate Given or contraindicated: SCD's Current Inpatient Medications: Current Inpatient Medications Medications (Trade) Dose Ordered Sig/Natalya Route Start Time Stop Time Status Last Admin Dose Admin Lactulose (Chronulac Syrup) 30 gm TID PO 02/01/17 21:00 03/03/17 20:59 02/03/17 07:41 30 GM Bisacodyl (Dulcolax Supp) 10 mg DAILY PRN NV 02/01/17 18:30 03/03/17 18:29 Pantoprazole Sodium 40 mg/ Syringe 10 ml @ 5 mls/min DAILY@11 IV 02/02/17 11:00 03/04/17 10:59 02/04/17 10:56 5 MLS/MIN Insulin Aspart (novoLOG ASPART) SLIDING SCALE If C... ACHS SC 02/01/17 21:00 03/03/17 20:59 02/04/17 12:52 4 UNITS Glucose (Glucose 40% Gel) 15-30 GRAMS 15 GRAMS... UD PRN PO 02/01/17 18:45 03/03/17 18:44 Glucose (Glucose Chew Tab) 4-8 Tablets 4 Tabl... UD PRN PO 02/01/17 18:45 03/03/17 18:44 Dextrose (Dextrose 50% 50ML Syringe) 25-50ML OF 50% DW IV FOR... UD PRN IV 02/01/17 18:45 03/03/17 18:44 Glucagon (Glucagon Inj) 1 mg UD PRN SQ 02/01/17 18:45 03/03/17 18:44 Aspirin (Ecotrin Tab) 81 mg QAM PO 02/02/17 09:00 03/04/17 08:59 02/04/17 07:50 81 MG Atorvastatin Calcium (Lipitor Tab) 80 mg QPM PO 02/01/17 21:00 03/03/17 20:59 02/02/17 21:35 80 MG Docusate Sodium (coLACE CAP) 100 mg QAM PO 02/02/17 09:00 03/04/17 08:59 02/04/17 07:50 100 MG Gabapentin (Neurontin Tab) 600 mg BID PO 02/01/17 21:00 03/03/17 20:59 02/04/17 07:50 600 MG Isosorbide Mononitrate (Imdur Ext Rel Tab) 30 mg QAM PO 02/02/17 09:00 03/04/17 08:59 02/04/17 07:50 30 MG Lamotrigine (Lamictal Tab) 25 mg QAM PO 02/02/17 09:00 03/04/17 08:59 02/04/17 07:50 25 MG Lamotrigine (Lamictal Tab) 100 mg QAM PO 02/02/17 09:00 03/04/17 08:59 02/04/17 07:50 100 MG Levothyroxine Sodium (Synthroid Tab) 88 mcg DAILYBB PO 02/02/17 06:00 03/04/17 06:59 02/04/17 06:26 88 MCG Lisinopril (Zestril Tab) 2.5 mg QAM PO 02/02/17 09:00 03/04/17 08:59 02/04/17 07:49 2.5 MG Metoprolol Succinate (Toprol Xl Tab) 75 mg QAM PO 02/02/17 09:00 03/04/17 08:59 02/04/17 07:49 75 MG Acetaminophen (Tylenol Tab) 650 mg Q4H PRN PO 02/01/17 19:00 03/03/17 18:59 02/04/17 16:01 650 MG Trazodone HCl (Desyrel Tab) 150 mg HS PO 02/02/17 21:00 03/04/17 20:59 02/02/17 21:35 150 MG Morphine Sulfate (Oramorph Sr Tab) 30 mg Q12H PO 02/01/17 22:00 02/15/17 21:59 02/04/17 10:10 30 MG Ondansetron HCl (Zofran Inj) 4 mg Q6H PRN IV 02/02/17 06:00 03/04/17 05:59 02/03/17 11:05 4 MG Clonazepam (Klonopin Tab) 0.5 mg BID PO 02/02/17 21:00 03/04/17 20:59 02/04/17 07:49 0.5 MG Famotidine (Pepcid Tab) 40 mg HS PO 02/02/17 21:00 03/04/17 20:59 02/02/17 21:36 40 MG Lamotrigine (Lamictal Tab) 50 mg HS PO 02/02/17 21:00 03/04/17 20:59 02/02/17 21:35 50 MG Oxycodone HCl (Roxicodone Immediate Rel Tab) 5 mg BID PRN PO 02/02/17 09:45 02/16/17 09:44 02/04/17 12:51 5 MG Venlafaxine HCl (effeXOR EXTENDED REL CAP) 150 mg QAM PO 02/03/17 09:00 03/05/17 08:59 02/04/17 07:50 150 MG Magnesium Hydroxide (Milk Of Magnesia Susp) 30 ml Q6H PRN PO 02/02/17 09:45 03/04/17 09:44 02/02/17 17:38 30 ML Aripiprazole (Abilify Soln) 2 mg HS PO 02/02/17 21:00 03/04/17 20:59 02/02/17 21:35 2 MG Albuterol (Ventolin Hfa Inhaler) 2 puffs Q6H PRN INH 02/03/17 08:45 03/05/17 08:44 Ceftriaxone Sodium 1 gm/ Dextrose 50 ml @ 100 mls/hr Q24H IV 02/03/17 10:00 02/13/17 09:59 02/04/17 10:10 100 MLS/HR Dicyclomine HCl (Bentyl Cap) 20 mg TID PRN PO 02/03/17 11:30 03/05/17 11:29 Enoxaparin Sodium (Lovenox Inj) 40 mg QAM SQ 02/04/17 12:00 03/06/17 11:59 02/04/17 12:51 40 MG
[2017-02-04] MEDS: ATORVASTATIN 40 MG TAB PO SCH (20:43)
[2017-02-04] MEDS: TRAZODONE HCL 50 MG TAB PO SCH (20:44)
[2017-02-04] MEDS: ARIPIprazole 1 MG/ML ORAL SOLN 150 ML BTL PO SCH (20:46)
[2017-02-04] MEDS: FAMOTIDINE 20 MG TAB PO SCH (20:47)
[2017-02-05 04:40] VITALS: BP 119/81; PULSE 80; TEMP 36.8; O2SAT 96
[2017-02-05] MEDS: LEVOTHYROXINE 88 MCG TAB PO SCH (06:14)
[2017-02-05] MEDS: ACETAMINOPHEN 325 MG TAB PO PRN ×2 (06:17→17:21)
[2017-02-05 07:25] LABS: HEMATOCRIT 32.4 % (37-47); MEAN CELL VOLUME 76.6 fL (80-100); MEAN CORPUSCULAR HEMOGLOBIN 24.1 pg (25-34); MEAN CORPUSCULAR HGB CONC 31.5 g/dl (32-36); RED BLOOD COUNT 4.23 M/uL (4.2-5.4); WHITE BLOOD COUNT 7.67 K/uL (4.8-10.8)
[2017-02-05 07:44] LABS: BUN/CREATININE RATIO 8.8 (10-20); CALCIUM 8.5 mg/dl (8.5-10.1); CREATININE 0.75 mg/dl (0.60-1.20); POTASSIUM 3.4 mmol/L (3.5-5.1)
[2017-02-05 08:02] LABS: MEAN PLATELET VOLUME 9.4 fL (7.4-10.4); PLATELET COUNT 91 K/uL (130-400)
[2017-02-05 08:03] LABS: BASO % 0.4 %; BASO ABS # 0.03 K/uL (0-0.2); COMPLETE YES; EOS % 3.5 %; IG% 0.3 %; LYMPH % 18.8 %; LYMPH ABS # 1.44 K/uL (1.2-3.4); MICROCYTOSIS PRESENT; PLT ESTIMATE DECREASED; POLYCHROMASIA 1+
[2017-02-05 08:04] VITALS: BP 103/69; PULSE 67; TEMP 36.5; O2SAT 94
[2017-02-05] MEDS: PANTOprazole SOD 40 MG TAB PO SCH (08:45)
[2017-02-05] MEDS: CLONAZEPAM 0.5 MG TAB PO SCH ×2 (08:45→20:37)
[2017-02-05] MEDS: GABAPENTIN 600 MG TAB PO SCH ×2 (08:45→20:38)
[2017-02-05] MEDS: ISOSORBIDE MONONITRATE 30 MG TABCR PO SCH (08:45)
[2017-02-05] MEDS: DOCUSATE SODIUM 100 MG CAP PO SCH (08:45)
[2017-02-05] MEDS: LISINOPRIL 2.5 MG TAB PO SCH (08:46)
[2017-02-05] MEDS: ASPIRIN 81 MG ECTAB PO SCH (08:46)
[2017-02-05] MEDS: VENLAFAXINE HCL XR 150 MG CAPXR PO SCH (08:46)
[2017-02-05] MEDS: METOPROLOL SUCC 25MG EXT REL TAB PO SCH (08:46)
[2017-02-05] MEDS: ENOXAPARIN 40 MG/0.4 ML SYR SQ SCH (08:47)
[2017-02-05] MEDS: INSULIN ASPART 100 UNITS/ML 3 ML PEN SC SCH ×4 (08:53→20:35)
[2017-02-05] MEDS: LACTULOSE SYRUP 30 GM/45 ML UDP PO SCH ×4 (08:54→20:00)
[2017-02-05] MEDS: CEFTRIAXONE SOD INJ 1 GM in DEXTROSE 5% ADD-VANTAGE 50ML 50 ML IV SCH (10:19)
[2017-02-05 11:48] VITALS: BP 111/73; PULSE 71; TEMP 36.3; O2SAT 94
[2017-02-05] MEDS: OXYCODONE HCL IR 5 MG TAB (IMMEDIATE RELEASE) PO PRN (13:53)
--- NOTE | 2017-02-05 15:02 | Progress Note ---
Internal Med Progress Note Date of Service: Feb 05, 2017. Provider Documentation: SUBJECTIVE: Seen and examined at bedside. States having generalized abdominal discomfort Also reports "I saw my cat on my bed" but is aware it is not true. Denies SOB, chest pain, nausea, dizziness Has been refusing to take lactulose. Discussed in length and agrees to take it today OBJECTIVE: Vital Signs-as noted below Physical Exam: General Appearance:Moderately built and nourished, no apparent distress Head: normocephalic, Atraumatic Eyes: normal inspection, EOMI, PERRL Neck: supple, Trachea midline Respiratory/Chest: Normal breath sounds, CTA Cardiovascular: S1, S2, + murmur Abdomen/GI:Soft, Non tender, Bowel sounds present Extremities/Musculoskelatal:normal inspection, no edema Neurologic/Psych:grossly no focal neurological deficits Skin: normal color, warm Lab data as noted below. ASSESSMENT & PLAN: Patient is a 66 yr female with history of CAD s/p Stent, DM, HTN, GONZALEZ, GERD, Bipolar, Chronic Pain presented with altered mental status. ALTERED MENTAL STATUS Likely Metabolic/Hepatic encephalopathy due to hyperammonemia and/or UTI Possibly medications contributing Patient has been non compliant with Lactulose Ammonia 20 >> 42 >>> 18 >>> 21 has hallucinations since 2 days continue Lactulose GI consulted, agree with lactulose, recommend daily dose when discharge decrease Morphine to daily PRN Oxycodone continue home Psych Meds POSSIBLE UTI, Complicated was started last week with Cipro for UTI symptoms, no urinalysis/urine culture done as outpatient clinically no improvement with Cipro x few days afebrile, no leukocytosis blood and urine cultures: negative Was on empiric Zosyn IV Day 2 >>> changed to Ceftriaxone Day 3 Plan to complete total of 7 days antibiotics CVA ruled out CT head: X 2: negative patient declines MRI continue Aspirin EEG negative appreciate Neuro input ABDOMINAL PAIN from CHRONIC NARCOTICS? CT abdomen unrevealing + BMs Appreciate GI Input Bentyl PRN resumed HYPOKALEMIA: Replace and monitor ELEVATED LACTIC ACID resolved CAD, S/P STENT stable DM II ISS, accu checks HTN continue home meds GERD continue PPI DVT Px: Lovenox SCDs Code Status: Full code Disposition Plan to discharge home when stable ff up with PCP Dr. Alexis Dougherty in 1 week Vital Signs: Date Time Temp Pulse Resp B/P (MAP) Pulse Ox O2 Delivery O2 Flow Rate FiO2 02/05/17 15:12 36.7 71 18 98/63 (75) 95 Room Air 02/05/17 11:48 36.3 71 20 111/73 (86) 94 02/05/17 08:10 Room Air 02/05/17 08:04 36.5 67 20 103/69 (80) 94 Room Air 02/05/17 04:40 36.8 80 20 119/81 (94) 96 Room Air 02/05/17 00:00 Room Air 02/04/17 23:35 36.7 69 18 102/68 (79) 96 Room Air 02/04/17 20:00 Room Air 02/04/17 19:31 36.7 72 18 98/57 (71) 94 Room Air Lab Results: Results Past 24 Hours Test 02/04/17 16:26 02/04/17 20:15 02/05/17 07:14 02/05/17 07:17 Range/Units Bedside Glucose 116 214 70-90 mg/dl White Blood Count 7.67 4.8-10.8 K/uL Red Blood Count 4.23 4.2-5.4 M/uL Hemoglobin 10.2 12.0-16.0 g/dL Hematocrit 32.4 37-47 % Mean Corpuscular Volume 76.6 80-100 fL Mean Corpuscular Hemoglobin 24.1 25-34 pg Mean Corpuscular Hemoglobin Concent 31.5 32-36 g/dl Platelet Count 91 130-400 K/uL Mean Platelet Volume 9.4 7.4-10.4 fL Neutrophils (%) (Auto) 69.0 % Lymphocytes (%) (Auto) 18.8 % Monocytes (%) (Auto) 8.0 % Eosinophils (%) (Auto) 3.5 % Basophils (%) (Auto) 0.4 % Neutrophils # (Auto) 5.30 1.4-6.5 K/uL Lymphocytes # (Auto) 1.44 1.2-3.4 K/uL Monocytes # (Auto) 0.61 0.11-0.59 K/uL Eosinophils # (Auto) 0.27 0-0.5 K/uL Basophils # (Auto) 0.03 0-0.2 K/uL RDW Standard Deviation 49.0 36.4-46.3 fL RDW Coefficient of Variation 17.6 11.5-14.5 % Immature Granulocyte % (Auto) 0.3 % Immature Granulocyte # (Auto) 0.02 0.00-0.02 K/uL Platelet Estimate DECREASED Polychromasia 1+ Microcytosis PRESENT Sodium Level 134 136-145 mmol/L Potassium Level 3.4 3.5-5.1 mmol/L Chloride Level 100 98-107 mmol/L Carbon Dioxide Level 30 21-32 mmol/L Anion Gap 4.0 3-11 mmol/L Blood Urea Nitrogen 7 7-18 mg/dl Creatinine 0.75 0.60-1.20 mg/dl Est Creatinine Clear Calc Drug Dose 91.2 ml/min Estimated GFR () 95.6 Estimated GFR (Non- 82.5 BUN/Creatinine Ratio 8.8 10-20 Random Glucose 171 70-99 mg/dl Calcium Level 8.5 8.5-10.1 mg/dl Magnesium Level 2.0 1.8-2.4 mg/dl Ammonia 21.0 11-32 umol/L Test 02/05/17 07:56 02/05/17 11:23 Range/Units Bedside Glucose 164 215 70-90 mg/dl
[2017-02-05 15:12] VITALS: BP 98/63; PULSE 71; TEMP 36.7; O2SAT 95
[2017-02-05] MEDS ORDERED: POTASSIUM CHLORIDE 10 MEQ TABCR PO ONE (15:30)
[2017-02-05] MEDS: DICYCLOMINE HCL 10 MG CAP PO PRN (17:21)
[2017-02-05 19:31] VITALS: BP 116/55; PULSE 70; TEMP 37.2; O2SAT 94
[2017-02-05] MEDS: MoRPHine SULFATE CR 15 MG TAB (MS CONTIN) PO SCH (20:37)
[2017-02-05] MEDS: ATORVASTATIN 40 MG TAB PO SCH (20:39)
[2017-02-05] MEDS: TRAZODONE HCL 50 MG TAB PO SCH (20:39)
[2017-02-05] MEDS: FAMOTIDINE 20 MG TAB PO SCH (20:40)
[2017-02-05] MEDS: ARIPIprazole 1 MG/ML ORAL SOLN 150 ML BTL PO SCH (20:40)
[2017-02-05 23:58] VITALS: BP 107/66; PULSE 62; TEMP 36.5; O2SAT 97
[2017-02-06] MEDS: ACETAMINOPHEN 325 MG TAB PO PRN ×2 (04:12→11:35)
[2017-02-06] MEDS: DICYCLOMINE HCL 10 MG CAP PO PRN ×3 (04:13→21:26)
[2017-02-06 04:19] VITALS: BP 125/80; PULSE 65; TEMP 36.5; O2SAT 99
[2017-02-06] MEDS: LEVOTHYROXINE 88 MCG TAB PO SCH (06:38)
[2017-02-06] MEDS: OXYCODONE HCL IR 5 MG TAB (IMMEDIATE RELEASE) PO PRN (06:41)
[2017-02-06 06:45] LABS: MEAN CELL VOLUME 76.6 fL (80-100); MEAN CORPUSCULAR HEMOGLOBIN 23.7 pg (25-34); MEAN CORPUSCULAR HGB CONC 30.9 g/dl (32-36); RED BLOOD COUNT 4.18 M/uL (4.2-5.4); WHITE BLOOD COUNT 5.19 K/uL (4.8-10.8)
[2017-02-06 07:00] LABS: MEAN PLATELET VOLUME 9.9 fL (7.4-10.4); PLATELET COUNT 97 K/uL (130-400)
[2017-02-06 07:15] LABS: BUN/CREATININE RATIO 6.8 (10-20); CALCIUM 8.4 mg/dl (8.5-10.1); CREATININE 0.74 mg/dl (0.60-1.20); MAGNESIUM 1.8 mg/dl (1.8-2.4); POTASSIUM 3.7 mmol/L (3.5-5.1)
[2017-02-06 07:26] LABS: BASO % 0.6 %; BASO ABS # 0.03 K/uL (0-0.2); COMPLETE YES; ECHINOCYTES 1+; EOS % 4.6 %; IG% 0.4 %; LYMPH % 22.2 %; LYMPH ABS # 1.15 K/uL (1.2-3.4); MICROCYTOSIS PRESENT; MONO % 8.5 %; NEUT % 63.7 %
[2017-02-06 07:51] VITALS: BP 105/58; PULSE 57; TEMP 36.6; O2SAT 94
[2017-02-06] MEDS: LACTULOSE SYRUP 30 GM/45 ML UDP PO SCH ×3 (08:30→19:47)
[2017-02-06] MEDS: VENLAFAXINE HCL XR 150 MG CAPXR PO SCH (08:30)
[2017-02-06] MEDS: METOPROLOL SUCC 25MG EXT REL TAB PO SCH (08:30)
[2017-02-06] MEDS: PANTOprazole SOD 40 MG TAB PO SCH (08:30)
[2017-02-06] MEDS: GABAPENTIN 600 MG TAB PO SCH ×2 (08:31→21:19)
[2017-02-06] MEDS: ASPIRIN 81 MG ECTAB PO SCH (08:31)
[2017-02-06] MEDS: ISOSORBIDE MONONITRATE 30 MG TABCR PO SCH (08:31)
[2017-02-06] MEDS: CLONAZEPAM 0.5 MG TAB PO SCH ×2 (08:32→21:19)
[2017-02-06] MEDS: DOCUSATE SODIUM 100 MG CAP PO SCH (08:33)
[2017-02-06] MEDS: LISINOPRIL 2.5 MG TAB PO SCH (08:35)
[2017-02-06] MEDS: ENOXAPARIN 40 MG/0.4 ML SYR SQ SCH (08:37)
[2017-02-06] MEDS: INSULIN ASPART 100 UNITS/ML 3 ML PEN SC SCH ×4 (09:03→21:00)
[2017-02-06] MEDS: CEFTRIAXONE SOD INJ 1 GM in DEXTROSE 5% ADD-VANTAGE 50ML 50 ML IV SCH (10:48)
[2017-02-06 11:36] VITALS: BP 120/75; PULSE 59; TEMP 36.7; O2SAT 97
[2017-02-06 15:10] VITALS: BP_SYST 109; BP_SYST 116; BP_SYST 143; BP_DIAS 67; BP_DIAS 71; BP_DIAS 78; PULSE 66; PULSE 70; PULSE 80; TEMP 36.6; O2SAT 97
[2017-02-06] MEDS: ONDANSETRON INJ 2 MG/ML 2 ML VIAL IV PRN (15:18)
--- NOTE | 2017-02-06 16:21 | Progress Note ---
Internal Med Progress Note Date of Service: Feb 06, 2017. Provider Documentation: SUBJECTIVE: Seen and examined at bedside. Had 2 BM today, Also had mild dizziness and nausea Still has hallucinations today Denies SOB, chest pain, nausea, dizziness OBJECTIVE: Vital Signs-as noted below Physical Exam: General Appearance:Moderately built and nourished, no apparent distress Head: normocephalic, Atraumatic Eyes: normal inspection, EOMI, PERRL Neck: supple, Trachea midline Respiratory/Chest: Normal breath sounds, CTA Cardiovascular: S1, S2, + murmur Abdomen/GI:Soft, Non tender, Bowel sounds present Extremities/Musculoskelatal:normal inspection, no edema Neurologic/Psych:grossly no focal neurological deficits Skin: normal color, warm Lab data as noted below. ASSESSMENT & PLAN: Patient is a 66 yr female with history of CAD s/p Stent, DM, HTN, GONZALEZ, GERD, Bipolar, Chronic Pain presented with altered mental status. ALTERED MENTAL STATUS Likely Metabolic/Hepatic encephalopathy due to hyperammonemia and/or UTI Possibly medications contributing Patient has been non compliant with Lactulose Ammonia 20 >> 42 >>> 18 >>> 21>>>22 reports hallucinations since 3 days continue Lactulose GI consulted, agree with lactulose, recommend daily dose when discharge decrease Morphine to daily PRN Oxycodone continue home Psych Meds Will consult psychiatry for input regarding hallucinations POSSIBLE UTI, Complicated was started last week with Cipro for UTI symptoms, no urinalysis/urine culture done as outpatient clinically no improvement with Cipro x few days afebrile, no leukocytosis blood and urine cultures: negative Was on empiric Zosyn IV Day 2 >>> changed to Ceftriaxone Day 4/5 Plan to complete total of 7 days antibiotics CVA ruled out CT head: X 2: negative patient declined MRI continue Aspirin EEG negative appreciate Neuro input ABDOMINAL PAIN from CHRONIC NARCOTICS? CT abdomen unrevealing Appreciate GI Input Bentyl PRN resumed HYPOKALEMIA: resolved monitor ELEVATED LACTIC ACID resolved CAD, S/P STENT stable DM II ISS, accu checks HTN continue home meds GERD continue PPI DVT Px: Lovenox SCDs Code Status: Full code Disposition Plan to discharge home when stable ff up with PCP Dr. Alexis Dougherty in 1 week Vital Signs: Date Time Temp Pulse Resp B/P (MAP) Pulse Ox O2 Delivery O2 Flow Rate FiO2 02/06/17 16:00 Room Air 02/06/17 15:10 36.6 66 18 109/71 (84) 97 Room Air 70 143/78 (99) 80 116/67 (83) 02/06/17 11:36 36.7 59 16 120/75 (90) 97 02/06/17 08:00 Room Air 02/06/17 07:51 36.6 57 16 105/58 (74) 94 Room Air 02/06/17 04:19 36.5 65 20 125/80 (95) 99 Room Air 02/06/17 00:35 Room Air 02/05/17 23:58 36.5 62 20 107/66 (80) 97 Room Air 02/05/17 19:31 37.2 70 20 116/55 (75) 94 Room Air Lab Results: Results Past 24 Hours Test 02/05/17 19:59 02/06/17 06:37 02/06/17 07:31 02/06/17 11:39 Range/Units Bedside Glucose 122 181 195 70-90 mg/dl White Blood Count 5.19 4.8-10.8 K/uL Red Blood Count 4.18 4.2-5.4 M/uL Hemoglobin 9.9 12.0-16.0 g/dL Hematocrit 32.0 37-47 % Mean Corpuscular Volume 76.6 80-100 fL Mean Corpuscular Hemoglobin 23.7 25-34 pg Mean Corpuscular Hemoglobin Concent 30.9 32-36 g/dl Platelet Count 97 130-400 K/uL Mean Platelet Volume 9.9 7.4-10.4 fL Neutrophils (%) (Auto) 63.7 % Lymphocytes (%) (Auto) 22.2 % Monocytes (%) (Auto) 8.5 % Eosinophils (%) (Auto) 4.6 % Basophils (%) (Auto) 0.6 % Neutrophils # (Auto) 3.31 1.4-6.5 K/uL Lymphocytes # (Auto) 1.15 1.2-3.4 K/uL Monocytes # (Auto) 0.44 0.11-0.59 K/uL Eosinophils # (Auto) 0.24 0-0.5 K/uL Basophils # (Auto) 0.03 0-0.2 K/uL RDW Standard Deviation 48.4 36.4-46.3 fL RDW Coefficient of Variation 17.5 11.5-14.5 % Immature Granulocyte % (Auto) 0.4 % Immature Granulocyte # (Auto) 0.02 0.00-0.02 K/uL Microcytosis PRESENT Echinocytes 1+ Sodium Level 131 136-145 mmol/L Potassium Level 3.7 3.5-5.1 mmol/L Chloride Level 98 98-107 mmol/L Carbon Dioxide Level 27 21-32 mmol/L Anion Gap 6.0 3-11 mmol/L Blood Urea Nitrogen 5 7-18 mg/dl Creatinine 0.74 0.60-1.20 mg/dl Est Creatinine Clear Calc Drug Dose 92.2 ml/min Estimated GFR () 97.2 Estimated GFR (Non- 83.8 BUN/Creatinine Ratio 6.8 10-20 Random Glucose 187 70-99 mg/dl Calcium Level 8.4 8.5-10.1 mg/dl Magnesium Level 1.8 1.8-2.4 mg/dl Ammonia 22.0 11-32 umol/L Test 02/06/17 16:22 Range/Units Bedside Glucose 148 70-90 mg/dl
[2017-02-06 19:33] VITALS: BP 158/81; PULSE 69; TEMP 36.3; O2SAT 98
[2017-02-06] MEDS: ATORVASTATIN 40 MG TAB PO SCH (21:18)
[2017-02-06] MEDS: FAMOTIDINE 20 MG TAB PO SCH (21:18)
[2017-02-06] MEDS: TRAZODONE HCL 50 MG TAB PO SCH (21:19)
[2017-02-06] MEDS: MoRPHine SULFATE CR 15 MG TAB (MS CONTIN) PO SCH (21:19)
[2017-02-06] MEDS: ARIPIprazole 1 MG/ML ORAL SOLN 150 ML BTL PO SCH (21:19)
[2017-02-06 23:45] VITALS: BP 141/73; PULSE 73; TEMP 36.7; O2SAT 97
[2017-02-07] MEDS: OXYCODONE HCL IR 5 MG TAB (IMMEDIATE RELEASE) PO PRN (03:47)
[2017-02-07 04:06] VITALS: BP 152/83; PULSE 79; TEMP 36.7; O2SAT 98
[2017-02-07] MEDS: ACETAMINOPHEN 325 MG TAB PO PRN ×2 (05:01→11:12)
[2017-02-07] MEDS: LEVOTHYROXINE 88 MCG TAB PO SCH (06:39)
[2017-02-07 06:40] LABS: BASO % 0.5 %; BASO ABS # 0.02 K/uL (0-0.2); COMPLETE YES; EOS % 5.8 %; HEMATOCRIT 32.5 % (37-47); IG% 0.5 %; LYMPH % 21.1 %; LYMPH ABS # 0.87 K/uL (1.2-3.4); MEAN CELL VOLUME 76.7 fL (80-100); MEAN CORPUSCULAR HEMOGLOBIN 24.1 pg (25-34); MEAN CORPUSCULAR HGB CONC 31.4 g/dl (32-36); MEAN PLATELET VOLUME 10.1 fL (7.4-10.4); MONO % 10.9 %; NEUT % 61.2 %; PLATELET COUNT 128 K/uL (130-400); RED BLOOD COUNT 4.24 M/uL (4.2-5.4); WHITE BLOOD COUNT 4.13 K/uL (4.8-10.8)
[2017-02-07 07:08] LABS: BUN/CREATININE RATIO 4.9 (10-20); CALCIUM 8.9 mg/dl (8.5-10.1); CREATININE 0.68 mg/dl (0.60-1.20); MAGNESIUM 1.9 mg/dl (1.8-2.4); POTASSIUM 3.9 mmol/L (3.5-5.1)
[2017-02-07] MEDS: DICYCLOMINE HCL 10 MG CAP PO PRN (07:39)
[2017-02-07] MEDS: GABAPENTIN 600 MG TAB PO SCH (07:39)
[2017-02-07] MEDS: LISINOPRIL 2.5 MG TAB PO SCH (07:39)
[2017-02-07] MEDS: ISOSORBIDE MONONITRATE 30 MG TABCR PO SCH (07:40)
[2017-02-07] MEDS: VENLAFAXINE HCL XR 150 MG CAPXR PO SCH (07:40)
[2017-02-07] MEDS: METOPROLOL SUCC 25MG EXT REL TAB PO SCH (07:40)
[2017-02-07] MEDS: PANTOprazole SOD 40 MG TAB PO SCH (07:40)
[2017-02-07] MEDS: LACTULOSE SYRUP 30 GM/45 ML UDP PO SCH ×2 (07:41→13:03)
[2017-02-07] MEDS: ASPIRIN 81 MG ECTAB PO SCH (07:41)
[2017-02-07] MEDS: DOCUSATE SODIUM 100 MG CAP PO SCH (07:42)
[2017-02-07] MEDS: ENOXAPARIN 40 MG/0.4 ML SYR SQ SCH (07:43)
[2017-02-07 07:44] VITALS: BP 121/71; PULSE 64; TEMP 36.6; O2SAT 96
[2017-02-07] MEDS: CLONAZEPAM 0.5 MG TAB PO SCH (07:47)
[2017-02-07] MEDS: ONDANSETRON INJ 2 MG/ML 2 ML VIAL IV PRN (08:46)
[2017-02-07] MEDS: INSULIN ASPART 100 UNITS/ML 3 ML PEN SC SCH ×2 (08:54→13:02)
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
[2017-02-07] MEDS: CEFTRIAXONE SOD INJ 1 GM in DEXTROSE 5% ADD-VANTAGE 50ML 50 ML IV SCH (11:07)
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
[2017-02-07 11:46] VITALS: BP 114/71; PULSE 62; TEMP 36.7; O2SAT 98
--- NOTE | 2017-02-07 12:41 | Progress Note ---
Internal Med Progress Note Date of Service: Feb 07, 2017. Provider Documentation: SUBJECTIVE: Seen and examined at bedside. Had no BM yet today States feeling well. Has hallucinations intermittently Denies SOB, chest pain, nausea, dizziness No new complaints OBJECTIVE: Vital Signs-as noted below Physical Exam: General Appearance:Moderately built and nourished, no apparent distress Head: normocephalic, Atraumatic Eyes: normal inspection, EOMI, PERRL Neck: supple, Trachea midline Respiratory/Chest: Normal breath sounds, CTA Cardiovascular: S1, S2, + murmur Abdomen/GI:Soft, Non tender, Bowel sounds present Extremities/Musculoskelatal:normal inspection, no edema Neurologic/Psych:grossly no focal neurological deficits Skin: normal color, warm Lab data as noted below. ASSESSMENT & PLAN: Patient is a 66 yr female with history of CAD s/p Stent, DM, HTN, GONZALEZ, GERD, Bipolar, Chronic Pain presented with altered mental status. ALTERED MENTAL STATUS Likely Metabolic/Hepatic encephalopathy due to hyperammonemia and/or UTI Possibly medications contributing Patient has been non compliant with Lactulose Ammonia 20 >> 42 >>> 18 >>> 21>>>22 reports intermittent hallucinations: likely delirium/metabolic causes continue Lactulose GI consulted, agree with lactulose, recommend daily dose when discharge DC Morphine Minimize Oxycodone continue home Psych Meds for now Appreciate psychiatry input Will [facility] to PCP POSSIBLE UTI, Complicated was started last week with Cipro for UTI symptoms, no urinalysis/urine culture done as outpatient clinically no improvement with Cipro x few days afebrile, no leukocytosis blood and urine cultures: negative Was on empiric Zosyn IV Day 2 >>> changed to Ceftriaxone Day 5/5 Completed total of 7 days antibiotics CVA ruled out CT head: X 2: negative patient declined MRI continue Aspirin EEG negative appreciate Neuro input ABDOMINAL PAIN from CHRONIC NARCOTICS? CT abdomen unrevealing Appreciate GI Input Bentyl PRN resumed HYPOKALEMIA: resolved monitor ELEVATED LACTIC ACID resolved CAD, S/P STENT stable DM II ISS, accu checks HTN continue home meds GERD continue PPI DVT Px: Lovenox SCDs Code Status: Full code Disposition Plan to discharge home today Follow up with PCP Dr. Alexis Dougherty on February 14 at 10:55AM Follow up with your vacuum extractor operator on March 19 at 3:00PM Follow up with your psychiatrist in 2-3 weeks as advised Seek immediate medical attention if your symptoms reoccur or worsen Vital Signs: Date Time Temp Pulse Resp B/P (MAP) Pulse Ox O2 Delivery O2 Flow Rate FiO2 02/07/17 11:46 36.7 62 18 114/71 (85) 98 Room Air 02/07/17 08:00 Room Air 02/07/17 07:44 36.6 64 16 121/71 (88) 96 Room Air 02/07/17 04:06 36.7 79 18 152/83 (106) 98 Room Air 02/07/17 00:05 Room Air 02/06/17 23:45 36.7 73 16 141/73 (95) 97 Room Air 02/06/17 19:51 Room Air 02/06/17 19:33 36.3 69 20 158/81 (106) 98 Room Air 02/06/17 16:00 Room Air 02/06/17 15:10 36.6 66 18 109/71 (84) 97 Room Air 70 143/78 (99) 80 116/67 (83) Lab Results: Results Past 24 Hours Test 02/06/17 16:22 02/06/17 19:44 02/07/17 05:50 02/07/17 07:35 Range/Units Bedside Glucose 148 154 175 70-90 mg/dl White Blood Count 4.13 4.8-10.8 K/uL Red Blood Count 4.24 4.2-5.4 M/uL Hemoglobin 10.2 12.0-16.0 g/dL Hematocrit 32.5 37-47 % Mean Corpuscular Volume 76.7 80-100 fL Mean Corpuscular Hemoglobin 24.1 25-34 pg Mean Corpuscular Hemoglobin Concent 31.4 32-36 g/dl Platelet Count 128 130-400 K/uL Mean Platelet Volume 10.1 7.4-10.4 fL Neutrophils (%) (Auto) 61.2 % Lymphocytes (%) (Auto) 21.1 % Monocytes (%) (Auto) 10.9 % Eosinophils (%) (Auto) 5.8 % Basophils (%) (Auto) 0.5 % Neutrophils # (Auto) 2.53 1.4-6.5 K/uL Lymphocytes # (Auto) 0.87 1.2-3.4 K/uL Monocytes # (Auto) 0.45 0.11-0.59 K/uL Eosinophils # (Auto) 0.24 0-0.5 K/uL Basophils # (Auto) 0.02 0-0.2 K/uL RDW Standard Deviation 49.0 36.4-46.3 fL RDW Coefficient of Variation 17.7 11.5-14.5 % Immature Granulocyte % (Auto) 0.5 % Immature Granulocyte # (Auto) 0.02 0.00-0.02 K/uL Sodium Level 137 136-145 mmol/L Potassium Level 3.9 3.5-5.1 mmol/L Chloride Level 103 98-107 mmol/L Carbon Dioxide Level 29 21-32 mmol/L Anion Gap 5.0 3-11 mmol/L Blood Urea Nitrogen 3 7-18 mg/dl Creatinine 0.68 0.60-1.20 mg/dl Est Creatinine Clear Calc Drug Dose 100.3 ml/min Estimated GFR () 104.9 Estimated GFR (Non- 90.5 BUN/Creatinine Ratio 4.9 10-20 Random Glucose 179 70-99 mg/dl Calcium Level 8.9 8.5-10.1 mg/dl Magnesium Level 1.9 1.8-2.4 mg/dl Test 02/07/17 11:32 Range/Units Bedside Glucose 210 70-90 mg/dl
[2017-02-07] MEDS ORDERED: LACT10SO30 PO (12:49)
--- NOTE | 2017-02-07 12:52 | Discharge Summary ---
Discharge Summary Date of Service Feb 07, 2017. Discharge Summary Admission Date: Feb 01, 2017 at 18:25 Discharge Date: Feb 07, 2017 Discharge Disposition: Home Principal Diagnosis: Hepatic Encephalopathy, UTI, Delirium Procedures: CT Head: No acute intracranial findings. CXR: No acute cardiopulmonary findings CT ABD: 1. No urinary calculi or hydronephrosis. 2. No acute process within the abdomen or pelvis on unenhanced exam. 3. Stable mild splenomegaly. Consultations: Neurology, Psychiatry, GI Pending Studies/Follow-Up: Follow up with PCP Dr. Alexis Dougherty on February 14 at 10:55AM Follow up with your transit planning director on March 19 at 3:00PM Follow up with your psychiatrist in 2-3 weeks as advised Seek immediate medical attention if your symptoms reoccur or worsen Medication Reconciliation Changed Medications: Lactulose (Encephalopathy) (Lactulose) 10 Gm/15 Ml [place] 30 ML PO DAILY for 30 Days, #1 BTL 1 Refill (Changed from: Q2D; Refills: ) PM Continued Medications: Albuterol Hfa (Ventolin Hfa) 200 Puffs/12474 Mcg Aers 2 PUFFS INH Q6H, #1 INHALER Aripiprazole (Abilify) 2 Mg Tab 2 MG PO QPM, TAB Aspirin (Aspirin Ec) 81 Mg Tab 81 MG PO QAM Atorvastatin Calcium (Lipitor) 80 Mg Tab 80 MG PO QPM, TAB Canagliflozin (Invokana) 100 Mg Tab 100 MG PO QAM Clonazepam (Klonopin) 0.5 Mg Tab 0.5 MG PO BID, TAB Dicyclomine HCl (Dicyclomine HCl) 10 Mg Cap 1 CAP PO QID PRN for abdominal pain Docusate Sodium (Docusate Sodium) 100 Mg Cap 1 CAP PO QAM for 7 Days, #7 CAP Famotidine (Pepcid) 40 Mg Tab 40 MG PO HS, TAB Furosemide (Furosemide) 20 Mg Tab 20 MG PO DAILY, #45 Gabapentin (Neurontin) 600 Mg Tab 600 MG PO BID, TAB Hydroxyzine Pamoate (Vistaril) 25 Mg Cap 25 MG PO BID, #60 Isosorbide Mononitrate Ext Rel (Imdur Ext Rel) 30 Mg Ertab 30 MG PO QAM, TAB Lamotrigine (Lamictal) 100 Mg Tab 100 MG PO QAM, TAB Lamotrigine (Lamictal) 25 Mg Tab 25 MG PO QAM, TAB along with 100mg tab to equal 125mg dose Lamotrigine (Lamictal) 25 Mg Tab 50 MG PO HS, TAB Levothyroxine Sodium (Synthroid) 88 Mcg Tab 88 MCG PO QAM, TAB Lisinopril (Lisinopril) 2.5 Mg Tab 2.5 MG PO QAM, TAB Metformin Hcl (Glucophage) 500 Mg Tab 1000 MG PO BIDM, TAB Metoprolol Succ (Toprol Xl) (Toprol-Xl) 50 Mg Tabcr 75 MG PO QAM, TAB Morphine Sulfate (Morphine Sulfate ER) 30 Mg Tabcr 30 MG PO Q12 Nitroglycerin (Nitrostat) 0.4 Mg/1 Tab Subl 1 TAB SL UD Omeprazole (Omeprazole) 20 Mg Tab 1 TAB PO BID, TAB Ondansetron Odt (Zofran Odt) 8 Mg Soltab 8 MG SL Q8 PRN for Nausea or Vomiting, TAB Oxycodone Ir (Roxicodone Ir) 5 Mg Tab 5 MG PO BID PRN for Severe Pain, TAB Trazodone Hcl (Trazodone) 50 Mg Tab 150 MG PO HS, TAB Venlafaxine Hcl (Effexor Xr) 75 Mg Cap 75 MG PO QAM, CAP TAKE THIS MEDICATION WITH FOOD. DOSAGE IS 225MG DAILY Venlafaxine Hcl (Effexor Xr) 150 Mg Cap 150 MG PO QAM, CAP TAKE THIS MEDICATION WITH FOOD. dosage is 225 mg daily Admission Information HPI (per Admitting provider): 66 year old female with history of CAD s/p Stent, DM, HTN, GONZALEZ, GERD, Bipolar, Chronic Pain presenting with altered mental status. Patient's history supplemented by patient's daughter- Carolyn. Apparently patient has been noted to be somewhat more drowsy for the past week. Also, she was started on Cipro last Friday during her Table Machine Operator visit for UTI symptoms. This morning, patient was noted to be somewhat confused; hence brought to the hospital. CT head negative for acute CVA. On exam, patient oriented x 3, answers questions appropriately. Daughter said patient was somewhat confused in the ER and is also having hallucinations. During my interview, I did not observe any confusion/hallucinations. Patient denies having any focal weakness or numbness, or neuro deficits. Denies headache, dizziness, cough, dyspnea, chest pain. Reports diffuse abdominal pain, cramping, nausea, constipated. No other symptoms. Physical Exam (per Admitting): General Appearance: WD/WN, no apparent distress Head: normocephalic, atraumatic Eyes: normal inspection, PERRL, EOMI, sclerae normal ENT: normal ENT inspection, hearing grossly normal, pharynx normal Neck: supple, no adenopathy, thyroid normal, no JVD, trachea midline Respiratory/Chest: chest non-tender, lungs clear, normal breath sounds, no respiratory distress, no accessory muscle use Cardiovascular: regular rate, rhythm, no edema, no JVD, no murmur Abdomen/GI: normal bowel sounds, soft, + pertinent finding (mild tenderness on all quadrants) Back: normal inspection, no CVA tenderness Extremities/Musculoskelatal: normal inspection, no calf tenderness, no pedal edema Neurologic/Psych: horse buyer II-XII nml as tested, alert, normal mood/affect, oriented x 3, + pertinent finding (sensation left arm>right arm; motors 100%) Skin: normal color, warm/dry, no rash Lymphatic: no adenopathy Hospital Course Patient is a 66 yr female with history of CAD s/p Stent, DM, HTN, GONZALEZ, GERD, Bipolar, Chronic Pain presented with altered mental status. ALTERED MENTAL STATUS Likely Metabolic/Hepatic encephalopathy due to hyperammonemia and/or UTI Possibly medications contributing Patient has been non compliant with Lactulose Ammonia 20 >> 42 >>> 18 >>> 21>>>22 reports intermittent hallucinations: likely delirium/metabolic causes continue Lactulose GI consulted, agree with lactulose, recommend daily dose when discharge DC Morphine Minimize Oxycodone continue home Psych Meds for now Appreciate psychiatry input [facility] to PCP POSSIBLE UTI, Complicated was started last week with Cipro for UTI symptoms, no urinalysis/urine culture done as outpatient clinically no improvement with Cipro x few days afebrile, no leukocytosis blood and urine cultures: negative Was on empiric Zosyn IV Day 2 >>> changed to Ceftriaxone Day 5/5 Completed total of 7 days antibiotics CVA ruled out CT head: X 2: negative patient declined MRI continue Aspirin EEG negative appreciate Neuro input ABDOMINAL PAIN from CHRONIC NARCOTICS? CT abdomen unrevealing Appreciate GI Input Bentyl PRN resumed HYPOKALEMIA: resolved monitor ELEVATED LACTIC ACID resolved CAD, S/P STENT stable DM II ISS, accu checks HTN continue home meds GERD continue PPI DVT Px: Lovenox SCDs Code Status: Full code Disposition Plan to discharge home today Follow up with PCP Dr. Alexis Dougherty on February 14 at 10:55AM Follow up with your transit planning director on March 19 at 3:00PM Follow up with your psychiatrist in 2-3 weeks as advised Seek immediate medical attention if your symptoms reoccur or worsen Total time spent on discharge = 32 minutes This includes examination of the patient, discharge planning, medication reconciliation, and communication with other providers. Discharge Instructions Discharge Instructions Date of Service Feb 07, 2017. Admission Reason for Admission: Altered Mental Status Discharge Discharge Diagnosis / Problem: Hepatic Encephalopathy, UTI, Delirium Discharge Goals Goal(s): Decrease discomfort, Improve function Activity Recommendations Activity Limitations: resume your previous activity Exercise/Sports Limitations: as tolerated Driving or Machine Use: Do not drive until cleared by your Primary Care physician . Instructions / Follow-Up Instructions / Follow-Up Follow up with PCP Dr. Alexis Dougherty on February 14 at 10:55AM Follow up with your transit planning director on March 19 at 3:00PM Follow up with your psychiatrist in 2-3 weeks as advised Seek immediate medical attention if your symptoms reoccur or worsen Current Hospital Diet Patient's current hospital diet: Diabetes Type 2 Diet, AHA Diet (Heart Healthy) Discharge Diet Recommended Diet: AHA Diet (Heart Healthy), Diabetes Type 2 Diet Pending Studies Studies pending at discharge: no Medical Emergencies . Who to Call and When: Medical Emergencies: If at any time you feel your situation is an emergency, please call 911 immediately. . Non-Emergent Contact Non-Emergency issues call your: Primary Care Provider, Balance Truing Inspector, Specialist (Pschiatrist) Call Non-Emergent contact if: you have a fever, your pain is not controlled, your pain is worsening, your pain is unusual for you, you have any medication questions If your symptoms reoccur or worsen . . "Provider Documentation" section prepared by Hola Schreiber. . VTE Core Measure Inpt VTE Proph given/why not?: SCD's
[2017-02-07 13:34] VITALS: BP 114/71; PULSE 62; TEMP 36.7; O2SAT 98
== END 2017-02-07 15:50 | disposition home or self-care (01) | DRG 441 ==
LOC: C.EDB 14:09 → C.2T 18:25 → ENRESERV 18:37 → C.4E 02-03 10:17
PROVIDERS: ADMIT Internal Medicine; ATTEND Internal Medicine
DX: K72.90 Hepatic failure, unspecified without coma (principal); G93.41 Metabolic encephalopathy; N39.0 Urinary tract infection, site not specified; F05 Delirium due to known physiological condition; E87.2 Acidosis; R44.1 Visual hallucinations; R10.9 Unspecified abdominal pain; K59.03 Drug induced constipation; T40.2X5A Adverse effect of other opioids, initial encounter; E87.6 Hypokalemia; K74.60 Unspecified cirrhosis of liver; K75.81 Nonalcoholic steatohepatitis (NASH); G89.29 Other chronic pain; M54.5 Low back pain; I10 Essential (primary) hypertension; I25.10 Atherosclerotic heart disease of native coronary artery without angina pectoris; E11.9 Type 2 diabetes mellitus without complications; K21.9 Gastro-esophageal reflux disease without esophagitis; E78.5 Hyperlipidemia, unspecified; E03.9 Hypothyroidism, unspecified; G62.9 Polyneuropathy, unspecified; F42.9 Obsessive-compulsive disorder, unspecified; F31.9 Bipolar disorder, unspecified; Z95.5 Presence of coronary angioplasty implant and graft; Z95.1 Presence of aortocoronary bypass graft; Z86.718 Personal history of other venous thrombosis and embolism; Z87.891 Personal history of nicotine dependence; Z96.651 Presence of right artificial knee joint; Z79.82 Long term (current) use of aspirin; Z79.84 Long term (current) use of oral hypoglycemic drugs; Z79.891 Long term (current) use of opiate analgesic; Z79.899 Other long term (current) drug therapy

== ENCOUNTER 2018-09-03 13:01 | Observation (INO) ==
[2018-09-03] MEDS ORDERED: ASPIRIN CHEW 324 MG PO STA (13:13)
[2018-09-03 13:31] LABS: Basophils # (auto) 0.03 K/uL (0-0.2); Basophils % (auto) 0.3 %; Eosinophils # (auto) 0.17 K/uL (0-0.5); Eosinophils % (auto) 1.6 %; Hematocrit (blood only) 43.1 % (37-47); Hemoglobin 14.2 g/dL (12.0-16.0); Immature Granulocytes # (auto) 0.08 K/uL (0.00-0.02); Immature Granulocytes % (auto) 0.8 %; Lymphocytes # (auto) 2.67 K/uL (1.2-3.4); Lymphocytes % (auto) 25.7 %; Mean Corpuscular Hgb Conc 32.9 g/dL (32-36); Mean Corpuscular Volume 80.4 fL (80-100); Mean Platelet Volume 9.4 fL (7.4-10.4); Monocytes # (auto) 0.68 K/uL (0.11-0.59); Monocytes % (auto) 6.6 %; Neutrophils # (auto) 6.75 K/uL (1.4-6.5); Platelet Count 143 K/uL (130-400); RDW Coefficient of Variation 16.4 % (11.5-14.5); RDW Standard Deviation 48.5 fL (36.4-46.3); Red Blood Count 5.36 M/uL (4.2-5.4); White Blood Count 10.38 K/uL (4.8-10.8)
--- NOTE | 2018-09-03 13:40 | XRay Report ---
XR chest 1V portable CLINICAL HISTORY: Chest Pain COMPARISON STUDY: Chest radiograph April 27, 2018. FINDINGS: Mild elevation of the right hemidiaphragm is unchanged. There are median sternotomy wires. Cardiomediastinal silhouette is stable. There is no consolidation or evidence for pulmonary edema. Ap pearance of the chest is unchanged. IMPRESSION: No acute cardiopulmonary findings. No change in appearance of the chest. Electronically signed by: Mu Bonds M.D. 09/03/2018 1:38 PM
[2018-09-03] MEDS: NITROGLYCERIN SL 0.4 MG/TAB TAB SL PRN ×3 (13:42→14:10)
[2018-09-03 13:48] LABS: Alanine Aminotransferase 16 U/L (12-78); Albumin Level 3.8 gm/dl (3.4-5.0); Aspartate Aminotransferase 18 U/L (15-37); BUN Creatinine Ratio 9.9 (10-20); Blood Urea Nitrogen 8 mg/dl (7-18); Calcium 9.4 mg/dl (8.5-10.1); Carbon Dioxide 28 mmol/L (21-32); Chloride 95 mmol/L (98-107); Creatinine Clr Calc Pharmacy 81.1 ml/min; Est GFR (African American) 85.9; Est GFR (Non-African American) 74.1; Glucose 140 mg/dl (70-99); Potassium 3.9 mmol/L (3.5-5.1); Sodium 131 mmol/L (136-145)
[2018-09-03 13:53] LABS: Alkaline Phosphatase 107 U/L (45-117); Bilirubin,Total 0.8 mg/dl (0.2-1); Globulin 3.8 gm/dl (2.5-4.0); Total Protein 7.6 gm/dl (6.4-8.2); Troponin I < 0.015 ng/ml (0-0.045)
--- NOTE | 2018-09-03 15:42 | Emergency Department Note ---
Entered by Lindsey Tran acting as a scribe for History of Present Illness General Chief complaint: Cardiac Assessment Stated complaint: CHEST PAIN,ANXIETY Source: patient History of Present Illness Provider complaint: chest pain Onset (ago): hour(s) (13) Location: chest Severity: severe Pain Consistency: + intermittent Maximum Pain Intensity: 0 Quality: + other (chest pain) Associated symptoms: + other (pain with deep breahts) Treatments prior to arrival: aspirin The patient is a 68 year old female who presents to the Emergency Room with complaints of intermittent, severe chest pain beginning 13 hours ago. She reports her pain began again around 2 hours ago, and she has mild pain currently. The patient notes intermittent pain with deep breaths. She states she took 4 baby aspirin today. The patient reports she had gastric bypass surgery in 2004 and is diabetic. She is a nonsmoker. Home Medications Home Medications Medication Instructions Recorded Confirmed Type albuterol sulfate [Ventolin HFA] 2 puff INHALATION QID PRN 04/27/18 09/03/18 History aripiprazole 2 mg PO HS 04/27/18 09/03/18 History atorvastatin 80 mg PO HS 04/27/18 09/03/18 History benzonatate 100 mg PO TID PRN 04/27/18 09/03/18 History clonazepam 0.5 mg PO BID PRN 04/27/18 09/03/18 History dicyclomine 10 mg PO QID PRN 04/27/18 09/03/18 History dulaglutide 0.5 ml SUBCUT WK 04/27/18 09/03/18 History ergocalciferol (vitamin D2) 50,000 units PO WK 04/27/18 09/03/18 History famotidine 40 mg PO HS 04/27/18 09/03/18 History gabapentin 600 mg PO BID 04/27/18 09/03/18 History insulin detemir U-100 20 units SUBCUT HS 04/27/18 09/03/18 History insulin detemir U-100 25 units SUBCUT QAM 04/27/18 09/03/18 History lactulose 30 ml PO Q3D 04/27/18 09/03/18 History lamotrigine 25 mg PO QAM 04/27/18 09/03/18 History lamotrigine 50 mg PO HS 04/27/18 09/03/18 History lamotrigine 100 mg PO QAM 04/27/18 09/03/18 History levothyroxine 88 mcg PO QAM 04/27/18 09/03/18 History magnesium oxide 400 mg PO HS 04/27/18 09/03/18 History metformin 1,000 mg PO BID 04/27/18 09/03/18 History metoprolol succinate 50 mg PO BIDM 04/27/18 09/03/18 History morphine 30 mg PO Q12H 04/27/18 09/03/18 History nitroglycerin [Nitrostat] 0.4 mg SUBLINGUAL DIRECTED PRN 04/27/18 09/03/18 History omeprazole 20 mg PO BID 04/27/18 09/03/18 History ondansetron HCl 8 mg PO Q8H PRN 04/27/18 09/03/18 History oxycodone 5 - 10 mg PO Q4H PRN MDD 20mg 04/27/18 09/03/18 History trazodone 150 mg PO HS 04/27/18 09/03/18 History venlafaxine 75 mg PO QAM 04/27/18 09/03/18 History venlafaxine 150 mg PO QAM 04/27/18 09/03/18 History aspirin 81 mg PO QAM 09/03/18 09/03/18 History isosorbide mononitrate 60 mg PO DAILY 09/03/18 09/03/18 History losartan 25 mg PO DAILY 09/03/18 09/03/18 History metoclopramide HCl 5 mg PO TIDM 09/03/18 09/03/18 History spironolactone 50 mg PO BID 09/03/18 09/03/18 History torsemide 20 mg PO DAILY 09/03/18 09/03/18 History Allergies Allergy/AdvReac Type Severity Reaction Status Date / Time propoxyphene Allergy Mild Rash Verified 04/27/18 15:35 fentanyl Allergy Unknown PANIC Verified 04/27/18 15:35 WANTS TO RUN AND AGGRESSIVE zolpidem AdvReac Intermediate confusion Verified 04/27/18 15:35 methocarbamol AdvReac Mild DELERIUM Verified 04/27/18 15:35 Past Med/Surg History Medical History Anxiety (Chronic) Bipolar disorder (Chronic) Vzmzqpm-Xofez-Tapny disease (Chronic) Gastroparesis (Chronic) Portal hypertensive gastropathy (Chronic) GONZALEZ (nonalcoholic steatohepatitis) (Chronic) Moderate aortic stenosis (Chronic) Chronic diastolic CHF (congestive heart failure) (Chronic) Hypertension (Chronic) CAD (coronary artery disease) (Chronic) History of multiple PCI's to the RCA with subsequent CABG x1 in 2010 Most recent cardiac testing-negative DSE in December 2017 DM type 2 (diabetes mellitus, type 2) (Chronic) Hypothyroidism (Chronic) Dyslipidemia (Chronic) Surgical History S/P CABG x 1 (Chronic) S/P CARLOS (total abdominal hysterectomy) (Chronic) Hx of cholecystectomy (Chronic) History of back surgery (Chronic) History of appendectomy (Chronic) History of total right knee replacement (Chronic) Family History Father CAD (coronary artery disease) Brother CAD (coronary artery disease) Social History Preferred Language: Malay Beliefs That Will Affect Care: Congregational Current Living Situation: Family Current Living Situation Comment: [facility] Other Information That Helps Us Care for You: No Feels Safe at Home: Yes Safety Concerns: Feels Safe At This Time Smoking Status: Never smoker Hx Alcohol Use: No Hx Substance Use: No Review of Systems See HPI for pertinent positives & negatives. and A total of 10 systems reviewed and were otherwise negative Physical Exam Vital Signs Vital Signs - 24 hr 09/03/18 13:04 09/03/18 13:19 09/03/18 13:24 Temperature 37.2 C Temperature Source Oral Sepsis Recent Fever Within 48 Hours No Sepsis Action Taken by Nursing No Action Required Pulse Rate 73 72 74 Pulse Rate from SpO2 Sensor 72 74 Pulse Rhythm Regular Pulse Strength Normal Respiratory Rate 20 15 21 Respiratory Effort / Characteristics Non-Labored Spontaneous Respiratory Depth Normal Respiratory Pattern Regular Blood Pressure 122/80 142/72 H Blood Pressure Mean 94 95 Blood Pressure Position Sitting Pulse Oximetry 97 96 95 Oxygen Delivery Method Room Air 09/03/18 13:30 09/03/18 14:00 09/03/18 14:01 Temperature Temperature Source Sepsis Recent Fever Within 48 Hours Sepsis Action Taken by Nursing Pulse Rate 73 77 79 Pulse Rate from SpO2 Sensor 73 76 80 Pulse Rhythm Pulse Strength Respiratory Rate 19 19 21 Respiratory Effort / Characteristics Respiratory Depth Respiratory Pattern Blood Pressure 111/69 Blood Pressure Mean 83 Blood Pressure Position Pulse Oximetry 94 93 93 Oxygen Delivery Method 09/03/18 14:02 09/03/18 14:30 09/03/18 15:00 Temperature Temperature Source Sepsis Recent Fever Within 48 Hours Sepsis Action Taken by Nursing Pulse Rate 77 73 69 Pulse Rate from SpO2 Sensor 77 72 69 Pulse Rhythm Pulse Strength Respiratory Rate 20 17 16 Respiratory Effort / Characteristics Respiratory Depth Respiratory Pattern Blood Pressure 116/60 115/61 Blood Pressure Mean 78 79 Blood Pressure Position Pulse Oximetry 92 94 97 Oxygen Delivery Method Vital signs reviewed. General: Well-appearing woman, in no significant distress. HEENT: No scleral icterus, PERRLA, neck supple. Atraumatic. Cardiovascular: Regular rate and rhythm, no extra sounds. Pulmonary: Clear to auscultation bilaterally, normal work of breathing. Abdomen: Soft, nontender, nondistended, positive bowel sounds. Musculoskeletal: Atraumatic, no peripheral edema. Neurologic: Patient awake alert and oriented x 3, full strength in all 4 extremities. Skin: Warm, dry, no rash. Course 1316: Past medical records reviewed. The patient was evaluated in room B11B, and a complete history and physical examination were performed. 1455: Upon reevaluation, the patient is resting. I discussed test results. They verbalized agreement with the treatment plan. 1513: I reviewed the patient's case with SAM [facility] hospitalist. She will evaluate the patient for further management. Consultations Consultation #1: SAM Pastor [facility] hospitalist Time: 15:13 Administered Medications Discontinued Medications Acetaminophen (Tylenol) 650 mg PO Q4H PRN PRN Reason: Pain or Fever Stop: 10/03/18 16:59 Last Admin: 09/04/18 06:17 Dose: 650 mg Documented by: [id number] Aripiprazole (Abilify) 2 mg PO HS ANGELLA Stop: 10/03/18 20:59 Last Admin: 09/04/18 16:28 Dose: 2 mg Documented by: [id number] Admin: 09/03/18 21:09 Dose: 2 mg Documented by: [id number] Aspirin (Aspirin) 324 mg PO NOW STA Stop: 09/03/18 13:14 Last Admin: 09/03/18 13:28 Dose: Not Given Documented by: [id number] Aspirin (Ecotrin Ectab) 81 mg PO QAM [facility] Stop: 10/04/18 08:59 Last Admin: 09/04/18 08:16 Dose: 81 mg Documented by: [id number] Atorvastatin Calcium (Lipitor) 80 mg PO HS [facility] Stop: 10/03/18 20:59 Last Admin: 09/03/18 21:07 Dose: 80 mg Documented by: [id number] Atropine Sulfate (Atropine Sulfate) Confirm Administered Dose 1 mg IV .STK-MED ONE Stop: 09/04/18 10:23 Last Admin: 09/04/18 11:22 Dose: 1 mg Documented by: [id number] Clonazepam (Klonopin) 0.5 mg PO BID PRN PRN Reason: Anxiety Stop: 10/03/18 16:59 Last Admin: 09/03/18 21:07 Dose: 0.5 mg Documented by: [id number] Dicyclomine HCl (Bentyl) 10 mg PO QID PRN PRN Reason: Abdominal Pain Stop: 10/03/18 16:59 Last Admin: 09/04/18 08:16 Dose: 10 mg Documented by: [id number] Dobutamine HCl (Dobutrex) Confirm Administered Dose 250 mg IV .STK-MED ONE Stop: 09/04/18 10:23 Last Admin: 09/04/18 11:14 Dose: Not Given Documented by: [id number] Enoxaparin Sodium (Lovenox) 40 mg SQ Q24H [facility] Stop: 10/03/18 20:59 Last Admin: 09/03/18 21:13 Dose: 40 mg Documented by: [id number] Famotidine (Pepcid) [address] [facility] Stop: 10/03/18 20:59 Last Admin: 09/03/18 21:09 Dose: 40 mg Documented by: [id number] Gabapentin (Neurontin) 600 mg PO BID [facility] Stop: 10/03/18 20:59 Last Admin: 09/04/18 08:17 Dose: 600 mg Documented by: [id number] Admin: 09/03/18 21:08 Dose: 600 mg Documented by: [id number] Insulin Aspart (Novolog Flexpen) 0 units SC ACHS [facility] Stop: 10/03/18 20:59 Last Admin: 09/04/18 16:52 Dose: Not Given Documented by: [id number] Cosigned by: [id number] Admin: 09/04/18 12:45 Dose: 5 units Documented by: [id number] Cosigned by: [id number] Admin: 09/04/18 08:15 Dose: Not Given Documented by: [id number] Cosigned by: [id number] Admin: 09/03/18 21:17 Dose: 3 units Documented by: [id number] Cosigned by: [id number] Admin: 09/03/18 18:49 Dose: 4 units Documented by: [id number] Cosigned by: [id number] Insulin Glargine (Lantus Solostar Pen) 0 units SC Q12H [facility] Stop: 10/03/18 20:59 Last Admin: 09/04/18 08:25 Dose: 10 units Documented by: [id number] Cosigned by: [id number] Admin: 09/03/18 21:15 Dose: 15 units Documented by: [id number] Cosigned by: [id number] Isosorbide Mononitrate (Imdur Extended Rel) 60 mg PO DAILY [facility] Stop: 10/04/18 08:59 Last Admin: 09/04/18 08:16 Dose: 60 mg Documented by: [id number] Lamotrigine (Lamictal) 25 mg PO QAM [facility] Stop: 10/04/18 08:59 Last Admin: 09/04/18 08:16 Dose: 25 mg Documented by: [id number] Lamotrigine (Lamictal) 50 mg PO HS [facility] Stop: 10/03/18 20:59 Last Admin: 09/03/18 21:11 Dose: 50 mg Documented by: [id number] Lamotrigine (Lamictal) 100 mg PO QAM [facility] Stop: 10/04/18 08:59 Last Admin: 09/04/18 08:17 Dose: 100 mg Documented by: [id number] Levothyroxine Sodium (Synthroid) 88 mcg PO DAILY [facility] Stop: 10/04/18 06:29 Last Admin: 09/04/18 06:12 Dose: 88 mcg Documented by: [id number] Losartan Potassium (Cozaar) 25 mg PO DAILY [facility] Stop: 10/04/18 08:59 Last Admin: 09/04/18 08:16 Dose: 25 mg Documented by: [id number] Magnesium Oxide (Mag-Ox) [address] [facility] Stop: 10/03/18 20:59 Last Admin: 09/03/18 21:08 Dose: 400 mg Documented by: [id number] Metoclopramide HCl (Reglan) 5 mg PO TIDM [facility] Stop: 10/03/18 16:59 Last Admin: 09/04/18 16:30 Dose: 5 mg Documented by: [id number] Admin: 09/04/18 11:57 Dose: 5 mg Documented by: [id number] Admin: 09/04/18 08:16 Dose: 5 mg Documented by: [id number] Admin: 09/03/18 18:32 Dose: Not Given Documented by: [id number] Metoprolol Succinate (Toprol Xl) 50 mg PO BIDM [facility] Stop: 10/03/18 16:59 Last Admin: 09/04/18 08:17 Dose: 50 mg Documented by: [id number] Admin: 09/03/18 18:47 Dose: 50 mg Documented by: [id number] Metoprolol Tartrate (Lopressor) Confirm Administered Dose 5 mg IV .STK-MED ONE Stop: 09/04/18 10:23 Last Admin: 09/04/18 11:40 Dose: Not Given Documented by: [id number] Metoprolol Tartrate (Lopressor) Confirm Administered Dose 5 mg IV .STK-MED ONE Stop: 09/04/18 10:24 Last Admin: 09/04/18 11:27 Dose: Not Given Documented by: [id number] Morphine Sulfate (Ms Contin) 30 mg PO Q12 [facility] Stop: 09/17/18 20:59 Last Admin: 09/04/18 08:24 Dose: 30 mg Documented by: [id number] Admin: 09/03/18 21:20 Dose: 30 mg Documented by: [id number] Nitroglycerin (Nitrostat) 0.4 mg SL PRN PRN PRN Reason: Chest Pain Stop: 10/03/18 13:31 Last Admin: 09/03/18 14:10 Dose: 0.4 mg Documented by: [id number] Admin: 09/03/18 13:56 Dose: 0.4 mg Documented by: [id number] Admin: 09/03/18 13:42 Dose: 0.4 mg Documented by: [id number] Pantoprazole Sodium (Protonix) 40 mg PO BID [facility] Stop: 10/03/18 20:59 Last Admin: 09/04/18 08:17 Dose: 40 mg Documented by: [id number] Admin: 09/03/18 21:12 Dose: 40 mg Documented by: [id number] Perflutren Lipid Microsphere (Definity) 2 ml IV ONCE ONE Stop: 09/04/18 11:40 Last Admin: 09/04/18 11:40 Dose: 2 ml Documented by: [id number] Spironolactone (Aldactone) 50 mg PO BID17 [facility] Stop: 10/04/18 08:59 Last Admin: 09/04/18 16:31 Dose: 50 mg Documented by: [id number] Admin: 09/04/18 08:16 Dose: 50 mg Documented by: [id number] Torsemide (Demadex) 20 mg PO DAILY [facility] Stop: 10/04/18 08:59 Last Admin: 09/04/18 08:16 Dose: 20 mg Documented by: [id number] Trazodone HCl (Desyrel) 150 mg PO HS [facility] Stop: 10/03/18 20:59 Last Admin: 09/03/18 21:11 Dose: 150 mg Documented by: [id number] Venlafaxine HCl (Effexor Extended Release) 75 mg PO QAM [facility] Stop: 10/04/18 08:59 Last Admin: 09/04/18 08:16 Dose: 75 mg Documented by: [id number] Venlafaxine HCl (Effexor Extended Release) 150 mg PO QAM [facility] Stop: 10/04/18 08:59 Last Admin: 09/04/18 08:16 Dose: 150 mg Documented by: [id number] Medical Decision Making Differential Diagnosis DDx: Acute coronary syndrome, pulmonary embolus, aortic dissection, musculoskeletal pain, pneumonia, pleural effusion, pneumothorax, GERD, PUD Medical Records Attestation: I reviewed the patient's medical records. Home Medications Current Medication List: was personally reviewed by me Laboratory Data Attestation: I reviewed the patient's lab results. Result diagrams: 09/04/18 06:00 09/04/18 06:00 Lab Results 09/03/18 09/03/18 09/03/18 Range/Units 13:20 13:20 13:20 WBC 10.38 (4.8-10.8) K/uL RBC 5.36 (4.2-5.4) M/uL Hgb 14.2 (12.0-16.0) g/dL Hct 43.1 (37-47) % MCV 80.4 (80-100) fL MCH 26.5 (25-34) pg MCHC 32.9 (32-36) g/dL RDW Std Deviation 48.5 H (36.4-46.3) fL RDW Coeff of Guillermo 16.4 H (11.5-14.5) % Plt Count 143 (130-400) K/uL MPV 9.4 (7.4-10.4) fL Immature Gran % (Auto) 0.8 % Neut % (Auto) 65.0 % Lymph % (Auto) 25.7 % Borden % (Auto) 6.6 % Eos % (Auto) 1.6 % Baso % (Auto) 0.3 % Immature Gran # (Auto) 0.08 H (0.00-0.02) K/uL Neut # (Auto) 6.75 H (1.4-6.5) K/uL Lymph # (Auto) 2.67 (1.2-3.4) K/uL Borden # (Auto) 0.68 H (0.11-0.59) K/uL Eos # (Auto) 0.17 (0-0.5) K/uL Baso # (Auto) 0.03 (0-0.2) K/uL PT 11.1 (9.0-12.0) Seconds INR 1.1 (0.9-1.1) Sodium 131 L (136-145) mmol/L Potassium 3.9 (3.5-5.1) mmol/L Chloride 95 L (98-107) mmol/L Carbon Dioxide 28 (21-32) mmol/L Anion Gap 8.0 (3-11) BUN 8 (7-18) mg/dl Creatinine 0.81 (0.6-1.2) mg/dl Est Cr Clr Drug Dosing 81.1 ml/min Est GFR ( Amer) 85.9 Est GFR (Non-Af Amer) 74.1 BUN/Creatinine Ratio 9.9 L (10-20) Glucose 140 H (70-99) mg/dl POC Glucose (70-99) Calcium 9.4 (8.5-10.1) mg/dl Total Bilirubin 0.8 (0.2-1) mg/dl AST 18 (15-37) U/L ALT 16 (12-78) U/L Alkaline Phosphatase 107 (45-117) U/L Ammonia (11-32) umol/L Troponin I < 0.015 (0-0.045) ng/ml Total Protein 7.6 (6.4-8.2) gm/dl Albumin 3.8 (3.4-5.0) gm/dl Globulin 3.8 (2.5-4.0) gm/dl Albumin/Globulin Ratio 1.0 (0.9-2) Lipase 191 (73-393) U/L Urine Color Urine Appearance (Clear) Urine pH (4.5-7.5) Ur Specific [place] (1.000-1.030) Urine Protein (Negative) Urine Glucose (UA) (Negative) Urine Ketones (Negative) Urine Blood (Negative) Urine Nitrite (Negative) Urine Bilirubin (Negative) Urine Urobilinogen (Negative) Ur Leukocyte Esterase (Negative) Urine WBC (Auto) (0-5) /hpf Urine RBC (Auto) (0-4) /hpf U Hyaline Cast (Auto) (0-5) /lpf U Epithel Cells (Auto) (0-5) /lpf Urine Bacteria (Auto) (Negative) 09/03/18 09/03/18 09/03/18 Range/Units 16:53 19:29 20:18 WBC (4.8-10.8) K/uL RBC (4.2-5.4) M/uL Hgb (12.0-16.0) g/dL Hct (37-47) % MCV (80-100) fL MCH (25-34) pg MCHC (32-36) g/dL RDW Std Deviation (36.4-46.3) fL RDW Coeff of Guillermo (11.5-14.5) % Plt Count (130-400) K/uL MPV (7.4-10.4) fL Immature Gran % (Auto) % Neut % (Auto) % Lymph % (Auto) % Borden % (Auto) % Eos % (Auto) % Baso % (Auto) % Immature Gran # (Auto) (0.00-0.02) K/uL Neut # (Auto) (1.4-6.5) K/uL Lymph # (Auto) (1.2-3.4) K/uL Borden # (Auto) (0.11-0.59) K/uL Eos # (Auto) (0-0.5) K/uL Baso # (Auto) (0-0.2) K/uL PT (9.0-12.0) Seconds INR (0.9-1.1) Sodium (136-145) mmol/L Potassium (3.5-5.1) mmol/L Chloride (98-107) mmol/L Carbon Dioxide (21-32) mmol/L Anion Gap (3-11) BUN (7-18) mg/dl Creatinine (0.6-1.2) mg/dl Est Cr Clr Drug Dosing ml/min Est GFR ( Amer) Est GFR (Non-Af Amer) BUN/Creatinine Ratio (10-20) Glucose (70-99) mg/dl POC Glucose 135 H 155 H (70-99) Calcium (8.5-10.1) mg/dl Total Bilirubin (0.2-1) mg/dl AST (15-37) U/L ALT (12-78) U/L Alkaline Phosphatase (45-117) U/L Ammonia (11-32) umol/L Troponin I < 0.015 (0-0.045) ng/ml Total Protein (6.4-8.2) gm/dl Albumin (3.4-5.0) gm/dl Globulin (2.5-4.0) gm/dl Albumin/Globulin Ratio (0.9-2) Lipase (73-393) U/L Urine Color Urine Appearance (Clear) Urine pH (4.5-7.5) Ur Specific [place] (1.000-1.030) Urine Protein (Negative) Urine Glucose (UA) (Negative) Urine Ketones (Negative) Urine Blood (Negative) Urine Nitrite (Negative) Urine Bilirubin (Negative) Urine Urobilinogen (Negative) Ur Leukocyte Esterase (Negative) Urine WBC (Auto) (0-5) /hpf Urine RBC (Auto) (0-4) /hpf U Hyaline Cast (Auto) (0-5) /lpf U Epithel Cells (Auto) (0-5) /lpf Urine Bacteria (Auto) (Negative) 09/03/18 09/04/18 09/04/18 Range/Units 21:30 00:29 06:00 WBC 7.47 (4.8-10.8) K/uL RBC 5.19 (4.2-5.4) M/uL Hgb 13.8 (12.0-16.0) g/dL Hct 41.4 (37-47) % MCV 79.8 L (80-100) fL MCH 26.6 (25-34) pg MCHC 33.3 (32-36) g/dL RDW Std Deviation 47.2 H (36.4-46.3) fL RDW Coeff of Guillermo 16.3 H (11.5-14.5) % Plt Count 120 L (130-400) K/uL MPV 10.4 (7.4-10.4) fL Immature Gran % (Auto) % Neut % (Auto) % Lymph % (Auto) % Borden % (Auto) % Eos % (Auto) % Baso % (Auto) % Immature Gran # (Auto) (0.00-0.02) K/uL Neut # (Auto) (1.4-6.5) K/uL Lymph # (Auto) (1.2-3.4) K/uL Borden # (Auto) (0.11-0.59) K/uL Eos # (Auto) (0-0.5) K/uL Baso # (Auto) (0-0.2) K/uL PT (9.0-12.0) Seconds INR (0.9-1.1) Sodium (136-145) mmol/L Potassium (3.5-5.1) mmol/L Chloride (98-107) mmol/L Carbon Dioxide (21-32) mmol/L Anion Gap (3-11) BUN (7-18) mg/dl Creatinine (0.6-1.2) mg/dl Est Cr Clr Drug Dosing ml/min Est GFR ( Amer) Est GFR (Non-Af Amer) BUN/Creatinine Ratio (10-20) Glucose (70-99) mg/dl POC Glucose (70-99) Calcium (8.5-10.1) mg/dl Total Bilirubin (0.2-1) mg/dl AST (15-37) U/L ALT (12-78) U/L Alkaline Phosphatase (45-117) U/L Ammonia (11-32) umol/L Troponin I < 0.015 (0-0.045) ng/ml Total Protein (6.4-8.2) gm/dl Albumin (3.4-5.0) gm/dl Globulin (2.5-4.0) gm/dl Albumin/Globulin Ratio (0.9-2) Lipase (73-393) U/L Urine Color Yellow Urine Appearance Clear (Clear) Urine pH 7.5 (4.5-7.5) Ur Specific [place] 1.007 (1.000-1.030) Urine Protein Negative (Negative) Urine Glucose (UA) Negative (Negative) Urine Ketones Negative (Negative) Urine Blood Negative (Negative) Urine Nitrite Negative (Negative) Urine Bilirubin Negative (Negative) Urine Urobilinogen Negative (Negative) Ur Leukocyte Esterase Trace H (Negative) Urine WBC (Auto) 1-5 (0-5) /hpf Urine RBC (Auto) 0-4 (0-4) /hpf U Hyaline Cast (Auto) 0 (0-5) /lpf U Epithel Cells (Auto) 10-20 H (0-5) /lpf Urine Bacteria (Auto) Negative (Negative) 09/04/18 09/04/18 09/04/18 Range/Units 06:00 11:57 12:09 WBC (4.8-10.8) K/uL RBC (4.2-5.4) M/uL Hgb (12.0-16.0) g/dL Hct (37-47) % MCV (80-100) fL MCH (25-34) pg MCHC (32-36) g/dL RDW Std Deviation (36.4-46.3) fL RDW Coeff of Guillermo (11.5-14.5) % Plt Count (130-400) K/uL MPV (7.4-10.4) fL Immature Gran % (Auto) % Neut % (Auto) % Lymph % (Auto) % Borden % (Auto) % Eos % (Auto) % Baso % (Auto) % Immature Gran # (Auto) (0.00-0.02) K/uL Neut # (Auto) (1.4-6.5) K/uL Lymph # (Auto) (1.2-3.4) K/uL Borden # (Auto) (0.11-0.59) K/uL Eos # (Auto) (0-0.5) K/uL Baso # (Auto) (0-0.2) K/uL PT (9.0-12.0) Seconds INR (0.9-1.1) Sodium 134 L (136-145) mmol/L Potassium 3.7 (3.5-5.1) mmol/L Chloride 98 (98-107) mmol/L Carbon Dioxide 28 (21-32) mmol/L Anion Gap 7.0 (3-11) BUN 11 (7-18) mg/dl Creatinine 0.80 (0.6-1.2) mg/dl Est Cr Clr Drug Dosing 80.7 ml/min Est GFR ( Amer) 87.2 Est GFR (Non-Af Amer) 75.2 BUN/Creatinine Ratio 13.1 (10-20) Glucose 140 H (70-99) mg/dl POC Glucose 162 H (70-99) Calcium 9.0 (8.5-10.1) mg/dl Total Bilirubin (0.2-1) mg/dl AST (15-37) U/L ALT (12-78) U/L Alkaline Phosphatase (45-117) U/L Ammonia 12.3 (11-32) umol/L Troponin I (0-0.045) ng/ml Total Protein (6.4-8.2) gm/dl Albumin (3.4-5.0) gm/dl Globulin (2.5-4.0) gm/dl Albumin/Globulin Ratio (0.9-2) Lipase (73-393) U/L Urine Color Urine Appearance (Clear) Urine pH (4.5-7.5) Ur Specific [place] (1.000-1.030) Urine Protein (Negative) Urine Glucose (UA) (Negative) Urine Ketones (Negative) Urine Blood (Negative) Urine Nitrite (Negative) Urine Bilirubin (Negative) Urine Urobilinogen (Negative) Ur Leukocyte Esterase (Negative) Urine WBC (Auto) (0-5) /hpf Urine RBC (Auto) (0-4) /hpf U Hyaline Cast (Auto) (0-5) /lpf U Epithel Cells (Auto) (0-5) /lpf Urine Bacteria (Auto) (Negative) 09/04/18 Range/Units 16:37 WBC (4.8-10.8) K/uL RBC (4.2-5.4) M/uL Hgb (12.0-16.0) g/dL Hct (37-47) % MCV (80-100) fL MCH (25-34) pg MCHC (32-36) g/dL RDW Std Deviation (36.4-46.3) fL RDW Coeff of Guillermo (11.5-14.5) % Plt Count (130-400) K/uL MPV (7.4-10.4) fL Immature Gran % (Auto) % Neut % (Auto) % Lymph % (Auto) % [place] % (Auto) % Eos % (Auto) % Baso % (Auto) % Immature Gran # (Auto) (0.00-0.02) K/uL Neut # (Auto) (1.4-6.5) K/uL Lymph # (Auto) (1.2-3.4) K/uL Borden # (Auto) (0.11-0.59) K/uL Eos # (Auto) (0-0.5) K/uL Baso # (Auto) (0-0.2) K/uL PT (9.0-12.0) Seconds INR (0.9-1.1) Sodium (136-145) mmol/L Potassium (3.5-5.1) mmol/L Chloride (98-107) mmol/L Carbon Dioxide (21-32) mmol/L Anion Gap (3-11) BUN (7-18) mg/dl Creatinine (0.6-1.2) mg/dl Est Cr Clr Drug Dosing ml/min Est GFR ( Amer) Est GFR (Non-Af Amer) BUN/Creatinine Ratio (10-20) Glucose (70-99) mg/dl POC Glucose 134 H (70-99) Calcium (8.5-10.1) mg/dl Total Bilirubin (0.2-1) mg/dl AST (15-37) U/L ALT (12-78) U/L Alkaline Phosphatase (45-117) U/L Ammonia (11-32) umol/L Troponin I (0-0.045) ng/ml Total Protein (6.4-8.2) gm/dl Albumin (3.4-5.0) gm/dl Globulin (2.5-4.0) gm/dl Albumin/Globulin Ratio (0.9-2) Lipase (73-393) U/L Urine Color Urine Appearance (Clear) Urine pH (4.5-7.5) Ur Specific [place] (1.000-1.030) Urine Protein (Negative) Urine Glucose (UA) (Negative) Urine Ketones (Negative) Urine Blood (Negative) Urine Nitrite (Negative) Urine Bilirubin (Negative) Urine Urobilinogen (Negative) Ur Leukocyte Esterase (Negative) Urine WBC (Auto) (0-5) /hpf Urine RBC (Auto) (0-4) /hpf U Hyaline Cast (Auto) (0-5) /lpf U Epithel Cells (Auto) (0-5) /lpf Urine Bacteria (Auto) (Negative) Imaging Data Radiologist's Impression: Radiology results as stated below per my review and the radiologist's interpretation: XR chest 1V portable CLINICAL HISTORY: Chest Pain COMPARISON STUDY: Chest radiograph April 27, 2018. FINDINGS: Mild elevation of the right hemidiaphragm is unchanged. There are median sternotomy wires. Cardiomediastinal silhouette is stable. There is no consolidation or evidence for pulmonary edema. Appearance of the chest is unchanged. IMPRESSION: No acute cardiopulmonary findings. No change in appearance of the chest. Electronically signed by: Mu Bonds M.D. 09/03/2018 1:38 PM ECG Data Attestation: I personally reviewed and interpreted this ECG as follows: Indication: chest pain Rate (beats per minute): 71 Rhythm: normal sinus Findings: + other (Previous anterior infarct); no ST depression and no ST elevation Blood Pressure Blood Pressure Findings: Normal blood pressure Blood Pressure Disposition: did not require urgent referral MDM Narrative This pt was evaluated and appeared to be in no distress. IV access was obtained and lab work was drawn. Pt was placed on the site monitor. EKG reveals no acute ischemia. Pt did take 4 baby [employer]. CXR is clear. Troponin is negative. Given pt's PMH and onset of pain, pt was d/w the hospitalist service for further management. She is aware of the plan and agrees. Impression & Plan Substernal chest pain Discharge Plan Visit Data *Final* Discharge Date/Time: 09/03/18 16:42 Chief Complaint: Cardiac Assessment Stated Complaint: CHEST PAIN,ANXIETY ED Provider: Radha Ruggiero Discharge Problem: Substernal chest pain Patient Disposition: Admitted As Inpatient Discharge Instructions Interventions: ED Discharge Assessment Last Done: 09/03/18 16:42 The scribe's documentation has been prepared under my direction and personally reviewed by me in its entirety. I confirm that the note above accurately reflects all work, treatment, procedures, and medical decision making performed by me.
[2018-09-03] MEDS ORDERED: CARBOHYDRATES FOR HYPOGLYCEMIA PO PRN (17:00)
[2018-09-03] MEDS ORDERED: ACETAMINOPHEN 325 MG TAB PO PRN (17:00)
[2018-09-03] MEDS ORDERED: GLUCOSE 10 TABS/TUBE PO PRN (17:00)
[2018-09-03] MEDS ORDERED: clonazePAM 0.5 MG TAB PO PRN (17:00)
[2018-09-03] MEDS ORDERED: NITROGLYCERIN SL 0.4 MG/TAB TAB SL PRN (17:00)
[2018-09-03] MEDS ORDERED: DICYCLOMINE HCL 10 MG CAP PO PRN (17:00)
[2018-09-03] MEDS ORDERED: OXYCODONE HCL IR 5 MG TAB (IMMEDIATE RELEASE) PO PRN (17:00)
[2018-09-03] MEDS ORDERED: GLUCOSE 40% GEL 15 GM TUBE PO PRN (17:00)
[2018-09-03] MEDS ORDERED: GLUCAGON FOR INJ 1 MG VIAL SQ PRN (17:00)
[2018-09-03] MEDS ORDERED: DEXTROSE 50% 50 ML SYRINGE IV PRN (17:00)
[2018-09-03 17:41] LABS: INR 1.1 (0.9-1.1); Prothrombin Time 11.1 Seconds (9.0-12.0)
--- NOTE | 2018-09-03 17:49 | History & Physical Report ---
Date of Service September 03, 2018 Assessment & Plan (1) Chest pain: (2) CAD (coronary artery disease): -Admit to telemetry -Patient presenting from home with reports of epigastric discomfort radiating into the left breast and into the left arm -Symptoms appear to be atypical, possibly GI in nature, however patient reports this is her anginal equivalent and was eased with SL nitro in the ED -Normal LFTs and lipase -Initial troponin negative, EKG without acute ST changes -History of CAD with multiple PCI's to the RCA with subsequent CABG x1 in 2010, multiple stress test, with most recent DSE being negative in December 2017 -Initial troponin negative, EKG without acute ST changes -Continue cycle cardiac enzymes -Continue aspirin, statin, beta-allie, nitrate -PRN nitro and EKG with further episodes of chest discomfort -Cardiology consult, further workup as per the recommendations (3) DM type 2 (diabetes mellitus, type 2): -Hgb A1c 8.2 02/2018 -Hold metformin and Trulicity, utilize Lantus and NovoLog per protocol while hospitalized (4) GONZALEZ (nonalcoholic steatohepatitis): -Appears stable, no signs of hepatic encephalopathy (5) Chronic diastolic CHF (congestive heart failure): -Appears euvolemic -Continue home doses of spironolactone and torsemide (6) Hypertension: -BP controlled, continue isosorbide, losartan, metoprolol (7) Hypothyroidism: -Continue levothyroxine (8) Anxiety: (9) Bipolar disorder: -Continue Lamictal, Effexor, trazodone, Abilify, PRN clonazepam (10) Gastroparesis: -Continue Reglan (11) DVT prophylaxis: -SQ Lovenox History of Present Illness Chief Complaint: Chest pain Primary Care Provider: Brian Domínguez 68-year-old female who presents to the ED with a chief complaint of chest pain. Patient reports 2 episodes of chest discomfort, one last night and one today. She reports that both of these episodes developed while she was at rest. Last evening, discomfort lasted for about 30 minutes and then resolved on its own. Pain was more persistent today so therefore she came to the ED for further evaluation. Patient describes the pain is located in her epigastric area and radiates up into her left breast and into her left arm. She reports associated shortness of breath, nausea, diaphoresis. She rates the pain as a #8/10 at its worst. She has nitroglycerin at home however did not use it. She reports this pain is similar to what she has experienced in the past when she required cardiac cath and stenting. Patient reports otherwise she has been feeling well recently. She denies abdominal pain, vomiting, diarrhea. No other recent illness, fevers, chills. She denies any urinary symptoms. In the ED, patient was given sublingual nitroglycerin which eased her discomfort however did not resolve it. Initial troponin is negative and EKG does not show acute changes. In addition to the sublingual nitroglycerin, patient was also given a full dose aspirin. Allergies Allergy/AdvReac Type Severity Reaction Status Date / Time propoxyphene Allergy Mild Rash Verified 04/27/18 15:35 fentanyl Allergy Unknown PANIC Verified 04/27/18 15:35 WANTS TO RUN AND AGGRESSIVE zolpidem AdvReac Intermediate confusion Verified 04/27/18 15:35 methocarbamol AdvReac Mild DELERIUM Verified 04/27/18 15:35 Home Medications Home Medications Medication Instructions Recorded Confirmed Type albuterol sulfate [Ventolin HFA] 2 puff INHALATION QID PRN 04/27/18 09/03/18 History aripiprazole 2 mg PO HS 04/27/18 09/03/18 History atorvastatin 80 mg PO HS 04/27/18 09/03/18 History benzonatate 100 mg PO TID PRN 04/27/18 09/03/18 History clonazepam 0.5 mg PO BID PRN 04/27/18 09/03/18 History dicyclomine 10 mg PO QID PRN 04/27/18 09/03/18 History dulaglutide [Trulicity] 0.5 ml SUBCUT WK 04/27/18 09/03/18 History ergocalciferol (vitamin D2) 50,000 units PO WK 04/27/18 09/03/18 History famotidine 40 mg PO HS 04/27/18 09/03/18 History gabapentin 600 mg PO BID 04/27/18 09/03/18 History insulin detemir U-100 [Levemir 20 units SUBCUT HS 04/27/18 09/03/18 History FlexTouch U-100 Insuln] insulin detemir U-100 [Levemir 25 units SUBCUT QAM 04/27/18 09/03/18 History FlexTouch U-100 Insuln] lactulose 30 ml PO Q3D 04/27/18 09/03/18 History lamotrigine 25 mg PO QAM 04/27/18 09/03/18 History lamotrigine 50 mg PO HS 04/27/18 09/03/18 History lamotrigine 100 mg PO QAM 04/27/18 09/03/18 History levothyroxine 88 mcg PO QAM 04/27/18 09/03/18 History magnesium oxide 400 mg PO HS 04/27/18 09/03/18 History metformin 1,000 mg PO BID 04/27/18 09/03/18 History metoprolol succinate 50 mg PO BIDM 04/27/18 09/03/18 History morphine 30 mg PO Q12H 04/27/18 09/03/18 History nitroglycerin [Nitrostat] 0.4 mg SUBLINGUAL DIRECTED PRN 04/27/18 09/03/18 History omeprazole 20 mg PO BID 04/27/18 09/03/18 History ondansetron HCl 8 mg PO Q8H PRN 04/27/18 09/03/18 History oxycodone 5 - 10 mg PO Q4H PRN MDD 20mg 04/27/18 09/03/18 History trazodone 150 mg PO HS 04/27/18 09/03/18 History venlafaxine 75 mg PO QAM 04/27/18 09/03/18 History venlafaxine 150 mg PO QAM 04/27/18 09/03/18 History aspirin 81 mg PO QAM 09/03/18 09/03/18 History isosorbide mononitrate 60 mg PO DAILY 09/03/18 09/03/18 History losartan 25 mg PO DAILY 09/03/18 09/03/18 History metoclopramide HCl 5 mg PO TIDM 09/03/18 09/03/18 History spironolactone 50 mg PO BID 09/03/18 09/03/18 History torsemide 20 mg PO DAILY 09/03/18 09/03/18 History Past Med/Surg History Medical History Anxiety (Chronic) Bipolar disorder (Chronic) [id number] disease (Chronic) Gastroparesis (Chronic) Portal hypertensive gastropathy (Chronic) GONZALEZ (nonalcoholic steatohepatitis) (Chronic) Moderate aortic stenosis (Chronic) Chronic diastolic CHF (congestive heart failure) (Chronic) Hypertension (Chronic) CAD (coronary artery disease) (Chronic) History of multiple PCI's to the RCA with subsequent CABG x1 in 2010 Most recent cardiac testing-negative DSE in December 2017 DM type 2 (diabetes mellitus, type 2) (Chronic) Hypothyroidism (Chronic) Dyslipidemia (Chronic) Surgical History S/P CABG x 1 (Chronic) S/P CARLOS (total abdominal hysterectomy) (Chronic) Hx of cholecystectomy (Chronic) History of back surgery (Chronic) History of appendectomy (Chronic) History of total right knee replacement (Chronic) Family History Father CAD (coronary artery disease) Brother CAD (coronary artery disease) Social History Preferred Language: Danish Client Support Consultant Required: No Beliefs That Will Affect Care: Catholic Current Living Situation: Family Current Living Situation Comment: [facility] Other Information That Helps Us Care for You: No Feels Safe at Home: Yes Safety Concerns: Feels Safe At This Time Smoking Status: Never smoker Hx Alcohol Use: No Hx Substance Use: No Review of Systems ROS per HPI, all other systems reviewed and negative Physical Exam Vital Signs (Past 24 Hours): Last Vital Signs Temp 36.4 C L 09/03/18 16:52 Pulse 96 H 09/03/18 16:52 Resp 20 09/03/18 16:52 BP 150/93 H 09/03/18 16:52 Pulse Ox 96 09/03/18 16:52 Constitutional: WD/WN, vitals as above Eyes: PERRL, conjunctivae normal, anicteric sclerae ENMT: external ear and nose normal, oropharynx normal Respiratory: normal respiratory effort, lungs clear to auscultation Cardiovascular: Rate/Rhythm: regular rate and regular rhythm Vessels: normal peripheral pulses Extremities: no edema Chest (Breasts): Additional Comments: Tenderness over the xiphoid process and left breast Gastrointestinal (Abdomen): normal bowel sounds, soft, nontender, no hepatosplenomegaly Musculoskeletal: no cyanosis or clubbing, extremities motor strength 5/5 Skin: no rashes, warm and dry Neurologic: PERRL, EOMI, accommodation nl, no face palsy, no dysarthria Psychiatric: Orientation: alert and oriented x 3 Affect: + flat affect Results & Data Laboratory Results Laboratory Last Values WBC 10.38 K/uL (4.8-10.8) 09/03/18 13:20 RBC 5.36 M/uL (4.2-5.4) 09/03/18 13:20 Hgb 14.2 g/dL (12.0-16.0) 09/03/18 13:20 Hct 43.1 % (37-47) 09/03/18 13:20 MCV 80.4 fL (80-100) 09/03/18 13:20 MCH 26.5 pg (25-34) 09/03/18 13:20 MCHC 32.9 g/dL (32-36) 09/03/18 13:20 RDW Std Deviation 48.5 fL (36.4-46.3) H 09/03/18 13:20 RDW Coeff of Guillermo 16.4 % (11.5-14.5) H 09/03/18 13:20 Plt Count 143 K/uL (130-400) 09/03/18 13:20 MPV 9.4 fL (7.4-10.4) 09/03/18 13:20 Immature Gran % (Auto) 0.8 % 09/03/18 13:20 Neut % (Auto) 65.0 % 09/03/18 13:20 Lymph % (Auto) 25.7 % 09/03/18 13:20 [place]born % (Auto) 6.6 % 09/03/18 13:20 Eos % (Auto) 1.6 % 09/03/18 13:20 Baso % (Auto) 0.3 % 09/03/18 13:20 Immature Gran # (Auto) 0.08 K/uL (0.00-0.02) H 09/03/18 13:20 Neut # (Auto) 6.75 K/uL (1.4-6.5) H 09/03/18 13:20 Lymph # (Auto) 2.67 K/uL (1.2-3.4) 09/03/18 13:20 Sanborn # (Auto) 0.68 K/uL (0.11-0.59) H 09/03/18 13:20 Eos # (Auto) 0.17 K/uL (0-0.5) 09/03/18 13:20 Baso # (Auto) 0.03 K/uL (0-0.2) 09/03/18 13:20 PT 11.1 Seconds (9.0-12.0) 09/03/18 13:20 INR 1.1 (0.9-1.1) 09/03/18 13:20 Sodium 131 mmol/L (136-145) L 09/03/18 13:20 Potassium 3.9 mmol/L (3.5-5.1) 09/03/18 13:20 Chloride 95 mmol/L (98-107) L 09/03/18 13:20 Carbon Dioxide 28 mmol/L (21-32) 09/03/18 13:20 Anion Gap 8.0 (3-11) 09/03/18 13:20 BUN 8 mg/dl (7-18) 09/03/18 13:20 Creatinine 0.81 mg/dl (0.6-1.2) 09/03/18 13:20 Est Cr Clr Drug Dosing 81.1 ml/min 09/03/18 13:20 Est GFR ( Amer) 85.9 09/03/18 13:20 Est GFR (Non-Af Amer) 74.1 09/03/18 13:20 BUN/Creatinine Ratio 9.9 (10-20) L 09/03/18 13:20 Glucose 140 mg/dl (70-99) H 09/03/18 13:20 POC Glucose 135 (70-99) H 09/03/18 16:53 Calcium 9.4 mg/dl (8.5-10.1) 09/03/18 13:20 Total Bilirubin 0.8 mg/dl (0.2-1) 09/03/18 13:20 AST 18 U/L (15-37) 09/03/18 13:20 ALT 16 U/L (12-78) 09/03/18 13:20 Alkaline Phosphatase 107 U/L (45-117) 09/03/18 13:20 Troponin I < 0.015 ng/ml (0-0.045) 09/03/18 13:20 Total Protein 7.6 gm/dl (6.4-8.2) 09/03/18 13:20 Albumin 3.8 gm/dl (3.4-5.0) 09/03/18 13:20 Globulin 3.8 gm/dl (2.5-4.0) 09/03/18 13:20 Albumin/Globulin Ratio 1.0 (0.9-2) 09/03/18 13:20 Lipase 191 U/L (73-393) 09/03/18 13:20 Diagnostic Findings CXR IMPRESSION: No acute cardiopulmonary findings. No change in appearance of the chest. Code Status & VTE Plan VTE Prophylaxis Plan VTE Prophylaxis will be ordered: Yes Supervising Physician Co-Signing Physician Notes I have seen and examined the patient with nurse practitioner and agree with the assessment and plan as above and would like to add that patient primarily pr esents for complaints of chest pain and that patient has a history of Coronary artery disease as documented by nurse practitioner and so she is somewhat higher risk of acute coronary syndrome On physical exam Cardiaovascular: Currently on telemetry with heart rate in sinus rhythm Respiratory: lungs are cleared to auscultation, no wheezing, on room air Neuro: awake and alert Extremities: moves all extremities Abdomen:soft, bowel sounds present, nondistended Will continue to monitor patient on telemetry and trend troponins, will request cardiology consultation for further evaluation Patient's daughter [phone] reports history of gastroparesis as suggested in the past when her mother has chest discomfort. however patient does not appear to have acute gastrointestinal symptoms at this time other medical issues and management as described by nurse practitioner Patient was admitted by nurse practitioner and Dr. Montalvo. Patient will be continued to be followed by colleague hospitalist Dr Mo
[2018-09-03] MEDS: METOCLOPRAMIDE HCL 5 MG TABLET PO SCH (18:32)
[2018-09-03] MEDS: METOPROLOL SUCC 50MG EXT REL TAB PO SCH (18:47)
[2018-09-03] MEDS: INSULIN ASPART 100 UNITS/ML 3 ML PEN SC SCH ×2 (18:49→21:17)
[2018-09-03] MEDS ORDERED: ENOXAPARIN INJ 40 MG/0.4 ML SYR SQ SCH (21:00)
[2018-09-03] MEDS ORDERED: FAMOTIDINE 20 MG TAB PO SCH (21:00)
[2018-09-03] MEDS ORDERED: lamoTRIgine 25 MG TAB PO SCH (21:00)
[2018-09-03] MEDS ORDERED: MAGNESIUM OXIDE 400 MG TAB PO SCH (21:00)
[2018-09-03] MEDS ORDERED: TRAZODONE HCL 50 MG TAB PO SCH (21:00)
[2018-09-03] MEDS ORDERED: ATORVASTATIN 40 MG TAB PO SCH (21:00)
[2018-09-03] MEDS: GABAPENTIN 600 MG TAB PO SCH (21:08)
[2018-09-03] MEDS: ARIPIprazole 1 MG/ML ORAL SOLN 150 ML BTL PO SCH (21:09)
[2018-09-03] MEDS: PANTOprazole 40 MG TAB PO SCH (21:12)
[2018-09-03] MEDS: INSULIN GLARGINE SOLOSTAR 100 UNITS/ML 3 ML PEN SC SCH (21:15)
[2018-09-03] MEDS: MoRPHine SULFATE CR 15 MG TABCR PO SCH (21:20)
[2018-09-03 21:47] LABS: Appearance Urine Clear (Clear); Bacteria Urine Automated Negative (Negative); Bilirubin Urine Negative (Negative); Blood Urine Negative (Negative); Cast Urine Automated 0 /lpf (0-5); Color Urine Yellow; Glucose Urine UA Negative (Negative); Ketones Urine Negative (Negative); Leukocyte Esterase Urine Trace (Negative); Nitrite Urine Negative (Negative); Protein Urine Negative (Negative); RBC Urine Automated 0-4 /hpf (0-4); Specific Gravity Urine 1.007 (1.000-1.030); Urobilinogen Urine Negative (Negative); pH Urine 7.5 (4.5-7.5)
[2018-09-04 06:08] LABS: Hematocrit (blood only) 41.4 % (37-47); Hemoglobin 13.8 g/dL (12.0-16.0); Mean Corpuscular Hgb Conc 33.3 g/dL (32-36); Mean Corpuscular Volume 79.8 fL (80-100); Mean Platelet Volume 10.4 fL (7.4-10.4); Platelet Count 120 K/uL (130-400); RDW Coefficient of Variation 16.3 % (11.5-14.5); RDW Standard Deviation 47.2 fL (36.4-46.3); Red Blood Count 5.19 M/uL (4.2-5.4); White Blood Count 7.47 K/uL (4.8-10.8)
[2018-09-04] MEDS ORDERED: LEVOTHYROXINE SODIUM 88 MCG TABLET PO SCH (06:30)
[2018-09-04 06:35] LABS: BUN Creatinine Ratio 13.1 (10-20); Creatinine Clr Calc Pharmacy 80.7 ml/min; Est GFR (African American) 87.2; Est GFR (Non-African American) 75.2; Potassium 3.7 mmol/L (3.5-5.1)
[2018-09-04] MEDS: INSULIN ASPART 100 UNITS/ML 3 ML PEN SC SCH ×3 (08:15→16:52)
[2018-09-04] MEDS: SPIRONOLACTONE 25 MG TAB PO SCH ×2 (08:16→16:31)
[2018-09-04] MEDS: METOCLOPRAMIDE HCL 5 MG TABLET PO SCH ×3 (08:16→16:30)
[2018-09-04] MEDS: PANTOprazole 40 MG TAB PO SCH (08:17)
[2018-09-04] MEDS: GABAPENTIN 600 MG TAB PO SCH (08:17)
[2018-09-04] MEDS: METOPROLOL SUCC 50MG EXT REL TAB PO SCH (08:17)
[2018-09-04] MEDS: MoRPHine SULFATE CR 15 MG TABCR PO SCH (08:24)
[2018-09-04] MEDS: INSULIN GLARGINE SOLOSTAR 100 UNITS/ML 3 ML PEN SC SCH (08:25)
[2018-09-04] MEDS ORDERED: lamoTRIgine 25 MG TAB PO SCH (09:00)
[2018-09-04] MEDS ORDERED: TORSEMIDE 20 MG TAB PO SCH (09:00)
[2018-09-04] MEDS ORDERED: lamoTRIgine 100 MG TAB PO SCH (09:00)
[2018-09-04] MEDS ORDERED: ASPIRIN 81 MG ECTAB PO SCH (09:00)
[2018-09-04] MEDS ORDERED: ISOSORBIDE MONO EXTENDED REL 60 MG TABCR PO SCH (09:00)
[2018-09-04] MEDS ORDERED: VENLAFAXINE HCL XR 150 MG CAPXR PO SCH (09:00)
[2018-09-04] MEDS ORDERED: VENLAFAXINE HCL XR 75 MG CAPXR PO SCH (09:00)
[2018-09-04] MEDS ORDERED: LOSARTAN POTASSIUM 25 MG TAB PO SCH (09:00)
--- NOTE | 2018-09-04 10:18 | Cardiology Consultation ---
Date of Consultation September 04, 2018 Assessment & Plan (1) Chest pain: Chest pain, somewhat atypical for angina, stable EKG, normal serial cardiac enzymes. We will proceed with repeat dobutamine stress echocardiogram. This tested previously been performed in December 2017 when the patient been seen by 1 of my partners, Dr. Blackwell. The test will be helpful in terms of reassessing her aortic valve stenosis arrest. We will proceed with stress test evaluation. (2) S/P CABG x 1: Continue prior to hospital medications including aspirin, isosorbide mononitrate 60 mg, metoprolol, losartan, and atorvastatin (3) Moderate aortic stenosis: We will reassess with echocardiogram (4) ESPANA (nonalcoholic steatohepatitis): Patient with history of [place] and resultant cirrhosis. Had been followed with GI during her admission in December, and most recent GI outpatient visit was in May,. Patient is on diuretic therapy as well as lactulose. Per review of recent [facility] home visits, the patient does have occasional confusion is been felt to perhaps be due to medications or perhaps due to her liver disease. At present, she perhaps has a little bit of fluid retention in her abdomen, but I think her volume status is stable. History of Present Illness Attending Physician: Cristiane Mo DO History of Present Illness Angelina Ballard is a 68 year old female seen in cardiology consultation per the request of SAM Priest of the [facility] service for the evaluation of chest discomfort. The patient is examined in room 222. She is asymptomatic at present. She presented via the emergency room yesterday with feelings of overall "sluggishness". 2 nights ago at approximately 11 PM she awoke from sleep with headache episode of chest discomfort. No associated shortness of breath orthopnea. No palpitations. Recurred again yesterday. EKG performed in the emergency room and again this morning reveals sinus rhythm with nonspecific repolarization changes, unchanged compared to prior studies. Troponin is negative x3. PAST CARDIAC HISTORY: Complex coronary heart disease with multiple (interventions the right coronary artery ultimately undergoing CABG x1 with right internal mammary artery graft to the right coronary artery on 02/15/2011. Most Recent Cardiac Catheterization Took Pl., May, at [place] performed by Dr Meraz which demonstrated 50% in-stent restenosis of the proximal RCA with a patent right internal mammary artery graft to the distal RCA with competitive flow from the hus[place] vessel. The left coronary system had minor nonobstructive disease ongoing medication management was recommended. Most recently she had a nonischemic dobutamine stress echocardiogram performed in December [address] [facility], with moderate to severe aortic stenosis noted at that time, peak continuous-wave Doppler velocity per report was 3.4 m/s. Allergies Allergy/AdvReac Type Severity Reaction Status Date / Time propoxyphene Allergy Mild Rash Verified 04/27/18 15:35 fentanyl Allergy Unknown PANIC Verified 04/27/18 15:35 WANTS TO RUN AND AGGRESSIVE zolpidem AdvReac Intermediate confusion Verified 04/27/18 15:35 methocarbamol AdvReac Mild DELERIUM Verified 04/27/18 15:35 Home Medications Home Medications Medication Instructions Recorded Confirmed Type albuterol sulfate [Ventolin HFA] 2 puff INHALATION QID PRN 04/27/18 09/03/18 History aripiprazole 2 mg PO HS 04/27/18 09/03/18 History atorvastatin 80 mg PO HS 04/27/18 09/03/18 History benzonatate 100 mg PO TID PRN 04/27/18 09/03/18 History clonazepam 0.5 mg PO BID PRN 04/27/18 09/03/18 History dicyclomine 10 mg PO QID PRN 04/27/18 09/03/18 History dulaglutide [Trulicity] 0.5 ml SUBCUT WK 04/27/18 09/03/18 History ergocalciferol (vitamin D2) 50,000 units PO WK 04/27/18 09/03/18 History famotidine 40 mg PO HS 04/27/18 09/03/18 History gabapentin 600 mg PO BID 04/27/18 09/03/18 History insulin detemir U-100 [Levemir 20 units SUBCUT HS 04/27/18 09/03/18 History FlexTouch U-100 Insuln] insulin detemir U-100 [Levemir 25 units SUBCUT QAM 04/27/18 09/03/18 History FlexTouch U-100 Insuln] lactulose 30 ml PO Q3D 04/27/18 09/03/18 History lamotrigine 25 mg PO QAM 04/27/18 09/03/18 History lamotrigine 50 mg PO HS 04/27/18 09/03/18 History lamotrigine 100 mg PO QAM 04/27/18 09/03/18 History levothyroxine 88 mcg PO QAM 04/27/18 09/03/18 History magnesium oxide 400 mg PO HS 04/27/18 09/03/18 History metformin 1,000 mg PO BID 04/27/18 09/03/18 History metoprolol succinate 50 mg PO BIDM 04/27/18 09/03/18 History morphine 30 mg PO Q12H 04/27/18 09/03/18 History nitroglycerin [Nitrostat] 0.4 mg SUBLINGUAL DIRECTED PRN 04/27/18 09/03/18 History omeprazole 20 mg PO BID 04/27/18 09/03/18 History ondansetron HCl 8 mg PO Q8H PRN 04/27/18 09/03/18 History oxycodone 5 - 10 mg PO Q4H PRN MDD 20mg 04/27/18 09/03/18 History trazodone 150 mg PO HS 04/27/18 09/03/18 History venlafaxine 75 mg PO QAM 04/27/18 09/03/18 History venlafaxine 150 mg PO QAM 04/27/18 09/03/18 History aspirin 81 mg PO QAM 09/03/18 09/03/18 History isosorbide mononitrate 60 mg PO DAILY 09/03/18 09/03/18 History losartan 25 mg PO DAILY 09/03/18 09/03/18 History metoclopramide HCl 5 mg PO TIDM 09/03/18 09/03/18 History spironolactone 50 mg PO BID 09/03/18 09/03/18 History torsemide 20 mg PO DAILY 09/03/18 09/03/18 History Patient History Medical History Anxiety (Chronic) Bipolar disorder (Chronic) Ykwqwil-[id number]-Uxsff disease (Chronic) Gastroparesis (Chronic) Portal hypertensive gastropathy (Chronic) ESPANA (nonalcoholic steatohepatitis) (Chronic) Moderate aortic stenosis (Chronic) Chronic diastolic CHF (congestive heart failure) (Chronic) Hypertension (Chronic) CAD (coronary artery disease) (Chronic) History of multiple PCI's to the RCA with subsequent CABG x1 in 2010 Most recent cardiac testing-negative DSE in December 2017 DM type 2 (diabetes mellitus, type 2) (Chronic) Hypothyroidism (Chronic) Dyslipidemia (Chronic) Surgical History S/P CABG x 1 (Chronic) S/P CARLOS (total abdominal hysterectomy) (Chronic) Hx of cholecystectomy (Chronic) History of back surgery (Chronic) History of appendectomy (Chronic) History of total right knee replacement (Chronic) Family History Father CAD (coronary artery disease) Brother CAD (coronary artery disease) Social History Preferred Language: Azeri [employer] [address] Sql Developer Required: No Beliefs That Will Affect Care: Scientologist Current Living Situation: Family Current Living Situation Comment: eliseo Santoyo Other Information That Helps Us Care for You: No Feels Safe at Home: Yes Safety Concerns: Feels Safe At This Time Smoking Status: Never smoker Hx Alcohol Use: No Hx Substance Use: No Review of Systems A 10 point review of systems is reviewed and is negative with the exception of that noted above Physical Exam Vital Signs (Past 24 Hours): Last Vital Signs Temp 37 C 09/04/18 07:06 Pulse 71 09/04/18 07:06 Resp 18 09/04/18 07:06 BP 139/79 09/04/18 07:06 Pulse Ox 97 09/04/18 07:06 Physical Exam: General: no acute distress and stated age, chronically ill in appearance Eyes: conjunctiva are pink and non-injected, sclera clear Chest: normal shape and normal respiratory effort Lungs: clear to auscultation and percussion Cardiac Exam: - regular heart sounds, II/ systolic murmur Abdomen: abdomen soft, non-tender Musculoskeletal: no gait disturbance, no weakness Extremities: Mild pedal edema Neuro:awake, coversant, follows commands, no focal motor deficits Results & Data Laboratory Results Cardiac Enzymes 09/03/18 09/03/18 09/04/18 Range/Units 13:20 19:29 00:29 AST 18 (15-37) U/L Troponin I < 0.015 < 0.015 < 0.015 (0-0.045) ng/ml Coagulation 09/03/18 Range/Units 13:20 PT 11.1 (9.0-12.0) Seconds CBC 09/03/18 09/04/18 Range/Units 13:20 06:00 WBC 10.38 7.47 (4.8-10.8) K/uL RBC 5.36 5.19 (4.2-5.4) M/uL Hgb 14.2 13.8 (12.0-16.0) g/dL Hct 43.1 41.4 (37-47) % Plt Count 143 120 L (130-400) K/uL Neut # (Auto) 6.75 H (1.4-6.5) K/uL Lymph # (Auto) 2.67 (1.2-3.4) K/uL [place] # (Auto) 0.68 H (0.11-0.59) K/uL Eos # (Auto) 0.17 (0-0.5) K/uL Baso # (Auto) 0.03 (0-0.2) K/uL Comprehensive Metabolic Panel 09/03/18 09/04/18 Range/Units 13:20 06:00 Sodium 131 L 134 L (136-145) mmol/L Potassium 3.9 3.7 (3.5-5.1) mmol/L Chloride 95 L 98 (98-107) mmol/L Carbon Dioxide 28 28 (21-32) mmol/L BUN 8 11 (7-18) mg/dl Creatinine 0.81 0.80 (0.6-1.2) mg/dl Glucose 140 H 140 H (70-99) mg/dl Calcium 9.4 9.0 (8.5-10.1) mg/dl AST 18 (15-37) U/L ALT 16 (12-78) U/L Alkaline Phosphatase 107 (45-117) U/L Total Protein 7.6 (6.4-8.2) gm/dl Albumin 3.8 (3.4-5.0) gm/dl Intake and Output 09/03/18 09/04/18 09/04/18 22:59 06:59 14:59 Intake Total 420 / 420 Output Total 900 / 1500 600 / 1500 Balance -480 / -1080 -600 / -1080 Intake: Oral 420 / 420 Output: Urine 900 / 1500 600 / 1500 Other: Other Intake Source NPO Weight 100 kg 96.7 kg Diagnostic Findings EKG performed this morning revealed sinus rhythm at 67 bpm with mild non- specific ST abnormality, relatively unchanged compared to 09/03/18. Patient has long-standing history of nonspecific T wave inversions in the anteroseptal leads noted on previous serial EKG tracings reviewed today. Medications Administered Current Inpatient Medications Acetaminophen (Tylenol) 650 mg PO Q4H PRN PRN Reason: Pain or Fever Stop: 10/03/18 16:59 Last Admin: 09/04/18 06:17 Dose: 650 mg Documented by: Aripiprazole (Abilify) 2 mg PO HS ANGELLA Stop: 10/03/18 20:59 Last Admin: 09/03/18 21:09 Dose: 2 mg Documented by: Aspirin (Ecotrin Ectab) 81 mg PO QAM ANGELLA Stop: 10/04/18 08:59 Last Admin: 09/04/18 08:16 Dose: 81 mg Documented by: Atorvastatin Calcium (Lipitor) 80 mg PO HS ANGELLA Stop: 10/03/18 20:59 Last Admin: 09/03/18 21:07 Dose: 80 mg Documented by: Clonazepam (Klonopin) 0.5 mg PO BID PRN PRN Reason: Anxiety Stop: 10/03/18 16:59 Last Admin: 09/03/18 21:07 Dose: 0.5 mg Documented by: Dextrose (Dextrose 50%) 25 - 50 ml IV UD PRN; Protocol PRN Reason: Hypoglycemia Protocol Stop: 10/03/18 16:59 Dicyclomine HCl (Bentyl) 10 mg PO QID PRN PRN Reason: Abdominal Pain Stop: 10/03/18 16:59 Last Admin: 09/04/18 08:16 Dose: 10 mg Documented by: Enoxaparin Sodium (Lovenox) 40 mg SQ Q24H ANGELLA Stop: 10/03/18 20:59 Last Admin: 09/03/18 21:13 Dose: 40 mg Documented by: Famotidine (Pepcid) 40 mg PO HS ANGELLA Stop: 10/03/18 20:59 Last Admin: 09/03/18 21:09 Dose: 40 mg Documented by: Gabapentin (Neurontin) 600 mg PO BID ANGELLA Stop: 10/03/18 20:59 Last Admin: 09/04/18 08:17 Dose: 600 mg Documented by: Glucagon (Glucagen) 1 mg SQ UD PRN; Protocol PRN Reason: Hypoglycemia Protocol Stop: 10/03/18 16:59 Glucose (Glucose 40%) 15 - 30 gm PO UD PRN; Protocol PRN Reason: Hypoglycemia Protocol Stop: 10/03/18 16:59 Glucose (Dex4 Glucose) 4 - 8 tabs PO UD PRN; Protocol PRN Reason: Hypoglycemia Protocol Stop: 10/03/18 16:59 Insulin Aspart (Novolog Flexpen) 0 units SC ACHS [facility] Stop: 10/03/18 20:59 Last Admin: 09/04/18 08:15 Dose: Not Given Documented by: Insulin Glargine (Lantus Solostar Pen) 0 units SC Q12H [facility] Stop: 10/03/18 20:59 Last Admin: 09/04/18 08:25 Dose: 10 units Documented by: Isosorbide Mononitrate (Imdur Extended Rel) 60 mg PO DAILY [facility] Stop: 10/04/18 08:59 Last Admin: 09/04/18 08:16 Dose: 60 mg Documented by: Lactulose (Chronulac) 20 gm PO Q3D@2100 [facility] Stop: 10/05/18 20:59 Lamotrigine (Lamictal) 25 mg PO QAM [facility] Stop: 10/04/18 08:59 Last Admin: 09/04/18 08:16 Dose: 25 mg Documented by: Lamotrigine (Lamictal) 50 mg PO [facility] Stop: 10/03/18 20:59 Last Admin: 09/03/18 21:11 Dose: 50 mg Documented by: Lamotrigine (Lamictal) 100 mg PO QAM [facility] Stop: 10/04/18 08:59 Last Admin: 09/04/18 08:17 Dose: 100 mg Documented by: [facility]othy[facility]ine [facility]) [facility]: 10/04/18 06:29 Last Admin: 09/04/18 06:12 Dose: 88 mcg Documented by: Losartan Potassium (Cozaar) 25 mg PO DAILY [facility] Stop: 10/04/18 08:59 Last Admin: 09/04/18 08:16 Dose: 25 mg Documented by: Magnesium Oxide (Mag-Ox) 400 mg PO [facility] Stop: 10/03/18 20:59 Last Admin: 09/03/18 21:08 Dose: 400 mg Documented by: Metoclopramide HCl (Reglan) 5 mg PO TIDM [facility] Stop: 10/03/18 16:59 Last Admin: 09/04/18 08:16 Dose: 5 mg Documented by: Metoprolol Succinate (Toprol Xl) 50 mg PO BIDM [facility] Stop: 10/03/18 16:59 Last Admin: 09/04/18 08:17 Dose: 50 mg Documented by: Miscellaneous (Carbohydrates For Hypoglycemia) 15 - 30 gm PO UD PRN PRN Reason: Hypoglycemia Treatment Stop: 10/03/18 16:59 Morphine Sulfate (Ms Contin) 30 mg PO Q12 [facility] Stop: 09/17/18 20:59 Last Admin: 09/04/18 08:24 Dose: 30 mg Documented by: Nitroglycerin (Nitrostat) 0.4 mg SL UD PRN PRN Reason: Chest Pain Stop: 10/03/18 16:59 Oxycodone HCl (Roxicodone Immediate Rel) 5 - 10 mg PO Q4H PRN PRN Reason: Pain Stop: 09/17/18 16:59 Pantoprazole Sodium (Protonix) 40 mg PO BID [facility] Stop: 10/03/18 20:59 Last Admin: 09/04/18 08:17 Dose: 40 mg Documented by: Spironolactone (Aldactone) 50 mg PO BID17 [facility] Stop: 10/04/18 08:59 Last Admin: 09/04/18 08:16 Dose: 50 mg Documented by: Torsemide (Demadex) 20 mg PO DAILY [facility] Stop: 10/04/18 08:59 Last Admin: 09/04/18 08:16 Dose: 20 mg Documented by: Trazodone HCl (Desyrel) 150 mg PO HS [facility] Stop: 10/03/18 20:59 Last Admin: 09/03/18 21:11 Dose: 150 mg Documented by: Venlafaxine HCl (Effexor Extended Release) 75 mg PO QAM [facility] Stop: 10/04/18 08:59 Last Admin: 09/04/18 08:16 Dose: 75 mg Documented by: Venlafaxine HCl (Effexor Extended Release) 150 mg PO QAM [facility] Stop: 10/04/18 08:59 Last Admin: 09/04/18 08:16 Dose: 150 mg Documented by:
[2018-09-04] MEDS: DOBUTamine HCL 12.5 MG/ML 20 ML VIAL IV ONE ×2 (11:14→11:51)
[2018-09-04] MEDS: ATROPINE SULFATE 0.1 MG/ML 10ML SYR IV ONE ×2 (11:22→11:51)
[2018-09-04] MEDS: METOPROLOL TARTRATE 1 MG/ML VIAL IV ONE ×4 (11:27→11:52)
[2018-09-04] MEDS ORDERED: PERFLUTREN LIPID MICROSPHERE (DEFINITY) IV ONE (11:39)
--- NOTE | 2018-09-04 13:45 | Hospitalist Progress Note ---
Date of Service September 04, 2018 Assessment & Plan (1) Chest pain: (2) CAD (coronary artery disease): -Admit to telemetry -Patient presenting from home with reports of epigastric discomfort radiating into the left breast and into the left arm -Symptoms appear to be atypical, possibly GI in nature, however patient reports this is her anginal equivalent and was eased with SL nitro in the ED -Normal LFTs and lipase -Initial troponin negative, EKG without acute ST changes -History of CAD with multiple PCI's to the RCA with subsequent CABG x1 in 2010, multiple stress test, with most recent DSE being negative in December 2017 -Initial troponin negative, EKG without acute ST changes -Continue cycle cardiac enzymes -Continue aspirin, statin, beta-allie, nitrate -PRN nitro and EKG with further episodes of chest discomfort -Cardiology consult, further workup as per the recommendations (3) DM type 2 (diabetes mellitus, type 2): -Hgb A1c 8.2 02/2018 -Hold metformin and Trulicity, utilize Lantus and NovoLog per protocol while hospitalized (4) GONZALEZ (nonalcoholic steatohepatitis): -Appears stable, no signs of hepatic encephalopathy (5) Chronic diastolic CHF (congestive heart failure): -Appears euvolemic -Continue home doses of spironolactone and torsemide (6) Hypertension: -BP controlled, continue isosorbide, losartan, metoprolol (7) Hypothyroidism: -Continue levothyroxine (8) Anxiety: (9) Bipolar disorder: -Continue Lamictal, Effexor, trazodone, Abilify, PRN clonazepam (10) Gastroparesis: -Continue Reglan (11) DVT prophylaxis: -SQ Lovenox Subjective 67-year-old female with cirrhosis, diabetes and known cardiac disease presented to the ER with cough, shortness of breath and sore throat. Painful urination was also reported. Vitals were stable on arrival. She was afebrile. Lab work revealed CBC within normal limits, BMP within normal limits with a glucose of 227. Her lipase was 291. Urine tox screen revealed positive for opiates. Urinalysis was negative for infection. Physical Exam Vital Signs (Past 24 Hours): Last Vital Signs Temp 37 C 09/04/18 07:06 Pulse 68 09/04/18 10:18 Resp 18 09/04/18 07:06 BP 139/79 09/04/18 07:06 Pulse Ox 97 09/04/18 07:06
--- NOTE | 2018-09-04 15:09 | Discharge Summary ---
Date of Service September 04, 2018 Admission HPI Per Admitting Provider 68-year-old female who presents to the ED with a chief complaint of chest pain. Patient reports 2 episodes of chest discomfort, one last night and one today. She reports that both of these episodes developed while she was at rest. Last evening, discomfort lasted for about 30 minutes and then resolved on its own. Pain was more persistent today so therefore she came to the ED for further evaluation. Patient describes the pain is located in her epigastric area and radiates up into her left breast and into her left arm. She reports associated shortness of breath, nausea, diaphoresis. She rates the pain as a #8/10 at its worst. She has nitroglycerin at home however did not use it. She reports this pain is similar to what she has experienced in the past when she required cardiac cath and stenting. Patient reports otherwise she has been feeling well recently. She denies abdominal pain, vomiting, diarrhea. No other recent illness, fevers, chills. She denies any urinary symptoms. In the ED, patient w as given sublingual nitroglycerin which eased her discomfort however did not resolve it. Initial troponin is negative and EKG does not show acute changes. In addition to the sublingual nitroglycerin, patient was also given a full dose aspirin. Admission Exam Per Admitting Provider WD/WN, vitals as above Eyes: PERRL, conjunctivae normal, anicteric sclerae ENMT: external ear and nose normal, oropharynx normal Respiratory: normal respiratory effort, lungs clear to auscultation Cardiovascular: Rate/Rhythm: regular rate and regular rhythm Vessels: normal peripheral pulses Extremities: no edema Chest (Breasts): Additional Comments: Tenderness over the xiphoid process and left breast Gastrointestinal (Abdomen): normal bowel sounds, soft, nontender, no hepatosplenomegaly Musculoskeletal: no cyanosis or clubbing, extremities motor strength 5/5 Skin: no rashes, warm and dry Neurologic: PERRL, EOMI, accommodation nl, no face palsy, no dysarthria Psychiatric: Orientation: alert and oriented x 3 Affect: + flat affectWD/WN, vitals as above Eyes: PERRL, conjunctivae normal, anicteric sclerae ENMT: external ear and nose normal, oropharynx normal Respiratory: normal respiratory effort, lungs clear to auscultation Cardiovascular: Rate/Rhythm: regular rate and regular rhythm Vessels: normal peripheral Principal Diagnosis atypical chest pain cirrhosis-compensated Discharge Data Allergies Allergy/AdvReac Type Severity Reaction Status Date / Time propoxyphene Allergy Mild Rash Verified 04/27/18 15:35 fentanyl Allergy Unknown PANIC Verified 04/27/18 15:35 WANTS TO RUN AND AGGRESSIVE zolpidem AdvReac Intermediate confusion Verified 04/27/18 15:35 methocarbamol AdvReac Mild DELERIUM Verified 04/27/18 15:35 Consultations 09/03/18 15:09 ED Decision to Admit Stat 09/03/18 17:00 Consult Cardiology Routine Consult Case Management - Discharge Planning Routine Hospital Course (1) Chest pain: (2) CAD (coronary artery disease): (3) DM type 2 (diabetes mellitus, type 2): (4) ESPANA (nonalcoholic steatohepatitis): (5) Chronic diastolic CHF (congestive heart failure): (6) Hypertension: (7) Hypothyroidism: (8) Anxiety: (9) Bipolar disorder: (10) Gastroparesis: 68-year-old female with [place] cirrhosis and cardiac disease presents to the ER with 2 episodes of chest discomfort while at rest. She was admitted to telemetry and monitored overnight after being given a sublingual nitroglycerin in the emergency department with some relief. Serial troponins were drawn and negative. She was given a full dose aspirin. EKG was sinus rhythm without acute ischemic changes. She had a history of multiple stents to the right coronary artery with subsequent CABG in 2010. She also has undergone multiple stress test with the most recent debridement stress echo negative in December 2017. Cardiology was consulted as a result. A repeat debridement stress echo was performed which was normal. There was no echocardiographic or EKG evidence of myocardial ischemia having achieved a heart rate adequate for diagnostic purposes. Her blood pressure and heart rate response to the pharmacologic stress was also normal. Her ammonia level was within normal limits. She was alert and oriented to person place and time. At time of discharge she had clear lungs on auscultation, a normal cardiac exam without evidence of edema, JVD, murmurs. Her abdominal exam revealed a soft nontender abdomen without disten tion or fluid wave. She was mentating and ambulating at baseline and tolerating p.o. without issue. She incidentally mentions some chronic nausea and dizziness that was intermittent for the past month and without any changes. She will continue to work this up with her outpatient provider, Dr. Domínguez. She was discharged in stable condition with close primary care follow-up recommended. Total Time Total Time Spent Total Time Spent (In Minutes): 60 Total Time Includes: Examination of the Patient, Discharge Planning, Medication Reconciliation, Communication With Other Providers and Other Discharge Plan Discharge Items Patient Disposition: Home - Self-Care Reason For Visit: CHEST PAIN Discharge Diagnosis: atypical chest pain cirrhosis-compensated Discharge Goals: Improve disease control Activity: Resume your previous activity Non-emergency contact: Primary Care Provider Call non-emergency contact if: you have any medication questions, your symptoms worsen, your pain is not controlled, your pain is worsening, your pain is unusual for you, your pain is concerning for you and you have a fever Follow-up/Referrals: Brian Domínguez [Primary Care Provider] - Diet: Carb Consistent or DM2 and Heart Healthy Addtl Provider Instructions: Please take all medications as instructed on discharge list below. You have the following appointment scheduled: Date & Time 09/09/2018 3:00 PM Provider Madina Devries MD [facility] It was a pleasure taking care of you! Please call if you have any questions or problems. You can reach a [facility] hospitalist on duty at [facility] 24 hours a day by calling [phone]. Take care of yourself. Cristiane Mo, [facility] Hospitalist Prescriptions: No Action metformin 500 mg tablet 1,000 mg PO BID RF: 0 atorvastatin 80 mg tablet 80 mg PO HS RF: 0 venlafaxine 75 mg capsule,extended release 24hr 75 mg PO QAM RF: 0 gabapentin 600 mg tablet 600 mg PO BID RF: 0 metoprolol succinate 50 mg tablet extended release 24 hr 50 mg PO BIDM RF: 0 ondansetron HCl 8 mg tablet 8 mg PO Q8H PRN (Reason: Nausea) RF: 0 famotidine 40 mg tablet 40 mg PO HS RF: 0 clonazepam 0.5 mg tablet 0.5 mg PO BID PRN (Reason: Anxiety) RF: 0 venlafaxine 150 mg capsule,extended release 24hr 150 mg PO QAM RF: 0 morphine 30 mg tablet extended release 30 mg PO Q12H RF: 0 lamotrigine 25 mg tablet 25 mg PO QAM RF: 0 lamotrigine 25 mg tablet 50 mg PO HS RF: 0 levothyroxine 88 mcg tablet 88 mcg PO QAM RF: 0 trazodone 150 mg tablet 150 mg PO HS RF: 0 omeprazole 20 mg capsule,delayed release(DR/EC) 20 mg PO BID RF: 0 dicyclomine 10 mg capsule 10 mg PO QID PRN (Reason: Abdominal Pain) RF: 0 lamotrigine 100 mg tablet 100 mg PO QAM RF: 0 oxycodone 5 mg tablet 5 - 10 mg PO Q4H MDD 20mg PRN (Reason: Pain) RF: 0 aripiprazole 2 mg tablet 2 mg PO HS RF: 0 Levemir FlexTouch U-100 Insuln 100 unit/mL (3 mL) insulin pen 25 units subcut QAM RF: 0 Levemir FlexTouch U-100 Insuln 100 unit/mL (3 mL) insulin pen 20 units subcut HS RF: 0 Trulicity 0.75 mg/0.5 mL pen injector 0.5 ml subcut WK RF: 0 benzonatate 100 mg Capsule 100 mg PO TID PRN (Reason: Cough) RF: 0 nitroglycerin [Nitrostat] 0.4 mg Tablet, Sublingual 0.4 mg Sublingual DIRECTED PRN (Reason: Chest Pain) RF: 0 ergocalciferol (vitamin D2) 50,000 unit Capsule 50,000 units PO WK RF: 0 albuterol sulfate [Ventolin HFA] 90 mcg/actuation Hfa Aerosol Inhaler 2 puff INHALATION QID PRN (Reason: Shortness Of Breath Or Wheezing) RF: 0 lactulose 10 gram/15 mL (15 mL) Solution 30 ml PO Q3D RF: 0 magnesium oxide 400 mg Capsule 400 mg PO HS RF: 0 aspirin 81 mg Tablet,Delayed Release (Dr/Ec) 81 mg PO QAM RF: 0 isosorbide mononitrate 60 mg tablet extended release 24 hr 60 mg PO DAILY RF: 0 torsemide 20 mg tablet 20 mg PO DAILY RF: 0 spironolactone 100 mg tablet 50 mg PO BID RF: 0 metoclopramide HCl 5 mg tablet 5 mg PO TIDM RF: 0 losartan 25 mg Tablet 25 mg PO DAILY RF: 0 Stand-Alone Forms: [facility]/Other Patient Handouts: Angina Discharge Orders: Discharge Order (Routine); Ordered 09/04/18 Ordered By: Cristiane Mo Admission Data Admit Date/Time: 09/03/18 15:57 Attending Provider: Cristiane Mo Admit Provider: Terrence Montalvo Primary Care Provider: Brian Domínguez Other Providers: Terrence Montalvo ; Vasquez Ng Service: Telemetry
[2018-09-04 15:11] VITALS: BP 93/59; PULSE 63; TEMP 98.2; O2SAT 92
[2018-09-04] MEDS: ARIPIprazole 1 MG/ML ORAL SOLN 150 ML BTL PO SCH (16:28)
[2018-09-05] MEDS ORDERED: LACTULOSE SYRUP 20 GM/30 ML UDC PO SCH (21:00)
== END 2018-09-04 17:29 | disposition home or self-care (01) ==
LOC: 2S 13:01 → ED 13:01 → 2S 16:42

== ENCOUNTER 2019-06-11 12:55 | Inpatient (IN) ==
[2019-06-11] MEDS ORDERED: SODIUM CHLORIDE 0.9% 1000ML 500 ML IV ONE (14:19)
[2019-06-11] MEDS ORDERED: ERTAPENEM SODIUM 1,000 MG in SODIUM CHLORIDE 0.9% 50 ML IV ONE (14:30)
[2019-06-11 14:55] LABS: Appearance Urine Cloudy (Clear); Bacteria Urine Automated 3+ (Negative); Bilirubin Urine Negative (Negative); Blood Urine Negative (Negative); Color Urine Yellow; Glucose Urine UA 2+ (Negative); Ketones Urine Negative (Negative); Leukocyte Esterase Urine 2+ (Negative); Nitrite Urine Positive (Negative); Protein Urine Negative (Negative); RBC Urine Automated 0-4 /hpf (0-4); Specific Gravity Urine 1.013 (1.000-1.030); Urobilinogen Urine Negative (Negative); WBC Urine Automated >30 /hpf (0-5); pH Urine 5.5 (4.5-7.5)
[2019-06-11 15:09] LABS: Basophils # (auto) 0.02 K/uL (0-0.2); Basophils % (auto) 0.3 %; Eosinophils # (auto) 0.05 K/uL (0-0.5); Eosinophils % (auto) 0.7 %; Hematocrit (blood only) 36.7 % (37-47); Hemoglobin 12.1 g/dL (12.0-16.0); Immature Granulocytes # (auto) 0.02 K/uL (0.00-0.02); Immature Granulocytes % (auto) 0.3 %; Lymphocytes # (auto) 1.51 K/uL (1.2-3.4); Lymphocytes % (auto) 20.5 %; Mean Corpuscular Hemoglobin 26.1 pg (25-34); Mean Corpuscular Volume 79.3 fL (80-100); Mean Platelet Volume 10.4 fL (7.4-10.4); Monocytes # (auto) 0.81 K/uL (0.11-0.59); Neutrophils # (auto) 4.96 K/uL (1.4-6.5); Neutrophils % (auto) 67.2 %; Platelet Count 143 K/uL (130-400); RDW Coefficient of Variation 16.9 % (11.5-14.5); RDW Standard Deviation 48.7 fL (36.4-46.3); Red Blood Count 4.63 M/uL (4.2-5.4); White Blood Count 7.37 K/uL (4.8-10.8)
[2019-06-11 15:17] LABS: Calcium 9.5 mg/dl (8.5-10.1); Creatinine Clr Calc Pharmacy 68.6 ml/min; Est GFR (African American) 70.8; Est GFR (Non-African American) 61.1; Potassium 3.8 mmol/L (3.5-5.1)
--- NOTE | 2019-06-11 15:23 | Emergency Department Note ---
Entered by Brittney Hopper acting as a scribe for History of Present Illness General Chief complaint: Urinary Symptoms Stated complaint: UTI SINCE APR Time Seen by Provider: 06/11/19 14:09 Source: patient History of Present Illness Onset (ago): month(s) 2 Location: abdomen (urinary tract) Radiation: back Pain Consistency: + intermittent and + other (persistent) Maximum Pain Intensity: 6 Quality: + burning Exacerbated By: + other (urination ) Associated symptoms: + fever/chills and + other (dysuria, urinary frequency, cloudy/odorous urine ); no nausea/vomiting The patient is a 68 year old female with a history of chronic urinary infections, CABG x1, CHF, CAD, GONZALEZ, total hysterectomy, cholecystectomy, back surgery, appendectomy, HTN, DM2, dyslipidemia, and hypothyroidism who presents to the Emergency Room for an E-coli ESBL resistant urinary infection that is only relieved with IV antibiotics. The patient explains that she began experiencing cloudy and odorous urine associated with dysuria and urinary frequency in April. She was treated with antibiotics with some relief but her symptoms have been intermittent and persistent since onset and are now associated with incontinence and back pain. Additionally she reports a fever last night of 99.4 degrees. She states that she has been on 6 antibiotics since April and her last antibiotic (Augmentin) was taken 1 week ago. The patient reports some relief with Augmentin. Of note, despite chronic urinary infections, the patient reports that her current infection is the worst. She denies nausea and vomiting. The patient offers no additional concerns at this time. Home Medications Home Medications Medication Instructions Recorded Confirmed Type albuterol sulfate [Ventolin HFA] 2 puff INHALATION QID PRN 04/27/18 06/11/19 History aripiprazole 2 mg PO HS 04/27/18 06/11/19 History atorvastatin 80 mg PO HS 04/27/18 06/11/19 History benzonatate 100 mg PO TID PRN 04/27/18 06/11/19 History clonazepam 0.5 mg PO BID PRN 04/27/18 06/11/19 History dicyclomine 10 mg PO QID PRN 04/27/18 06/11/19 History dulaglutide 0.5 ml SUBCUT WK 04/27/18 06/11/19 History ergocalciferol (vitamin D2) 50,000 units PO WK 04/27/18 06/11/19 History famotidine 40 mg PO HS 04/27/18 06/11/19 History gabapentin 600 mg PO BID 04/27/18 06/11/19 History insulin detemir U-100 20 units SUBCUT HS 04/27/18 06/11/19 History insulin detemir U-100 25 units SUBCUT QAM 04/27/18 06/11/19 History lactulose 30 ml PO DAILY PRN 04/27/18 06/11/19 History lamotrigine 25 mg PO QAM 04/27/18 06/11/19 History lamotrigine 50 mg PO HS 04/27/18 06/11/19 History lamotrigine 100 mg PO QAM 04/27/18 06/11/19 History levothyroxine 88 mcg PO QAM 04/27/18 06/11/19 History magnesium oxide 400 mg PO HS 04/27/18 06/11/19 History metformin 1,000 mg PO BID 04/27/18 06/11/19 History metoprolol succinate 50 mg PO BIDM 04/27/18 06/11/19 History nitroglycerin [Nitrostat] 0.4 mg SUBLINGUAL DIRECTED PRN 04/27/18 06/11/19 History omeprazole 20 mg PO BID 04/27/18 06/11/19 History ondansetron HCl 8 mg PO Q8H PRN 04/27/18 06/11/19 History oxycodone 5 - 10 mg PO TID PRN MDD 20mg 04/27/18 06/11/19 History trazodone 150 mg PO HS 04/27/18 06/11/19 History venlafaxine 75 mg PO QAM 04/27/18 06/11/19 History venlafaxine 150 mg PO QAM 04/27/18 06/11/19 History aspirin 81 mg PO QAM 09/03/18 06/11/19 History isosorbide mononitrate 60 mg PO QAM 09/03/18 06/11/19 History spironolactone 50 mg PO BID 09/03/18 06/11/19 History torsemide 20 mg PO QAM 09/03/18 06/11/19 History morphine 15 mg PO Q12H 11/27/18 06/11/19 History montelukast 10 mg PO DAILY 06/11/19 06/11/19 History oxybutynin chloride 10 mg PO DAILY 06/11/19 06/11/19 History Allergies Allergy/AdvReac Type Severity Reaction Status Date / Time propoxyphene Allergy Mild Rash Verified 11/27/18 09:14 fentanyl Allergy Unknown PANIC Verified 11/27/18 09:14 WANTS TO RUN AND AGGRESSIVE zolpidem AdvReac Intermediate confusion Verified 11/27/18 09:14 methocarbamol AdvReac Mild DELERIUM Verified 11/27/18 09:14 Past Med/Surg History Medical History Anxiety (Chronic) Bipolar disorder (Chronic) CAD (coronary artery disease) (Chronic) History of multiple PCI's to the RCA with subsequent CABG x1 in 2010 x 1 vessel Most recent cardiac testing-negative DSE in December 2017 Follows w/ Dr. Blackwell and Dr. Lucas Kvdtexl-[id number]-[id number] disease (Chronic) follows w/ Dr. 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 Rosenthal Osteoarthritis Portal hypertensive gastropathy (Chronic) Spondylosis Surgical History History of appendectomy (Chronic) History of back surgery (Chronic) History of cardiac cath multiple - most recent 1-2 years ago @ [place] - [facility] - no stents/angioplasty History of total right knee replacement (Chronic) Hx of cholecystectomy (Chronic) S/P CABG x 1 (Chronic) 2010 - single vessel S/P CARLOS (total abdominal hysterectomy) (Chronic) Family History Father Coronary heart disease Brother Coronary heart disease Social History (Updated 06/11/19 @ 16:04 by Nayla Weber PA-C) Preferred Language: Korean Communication Ability: Effective Oracle Reports Developer Required: No Beliefs That Will Affect Care: None Current Living Situation: Alone Other Information That Helps Us Care for You: No Feels Safe at Home: Yes Safety Concerns: Feels Safe At This Time Smoking Status: Never smoker Second Hand Exposure: Yes ; Hx Alcohol Use: No Hx Substance Use: No Review of Systems See HPI for pertinent positives & negatives. and A total of 10 systems reviewed and were otherwise negative Physical Exam Vital Signs Vital Signs - 24 hr 06/11/19 13:20 Temperature 37.2 C Temperature Source Oral Pulse Rate 67 Respiratory Rate 18 Respiratory Effort / Characteristics Non-Labored Spontaneous Respiratory Depth Normal Respiratory Pattern Regular Blood Pressure 138/69 Blood Pressure Mean 92 Blood Pressure Position Sitting Pulse Oximetry 99 Oxygen Delivery Method Room Air Sepsis Recent Fever Within 48 Hours No Sepsis New/Unexplained Change in Mental Status No Sepsis Action Taken by Nursing No Action Required GENERAL: Patient is in no acute distress. HEENT: No acute trauma, normocephalic atraumatic, mucous membranes moist, no nasal congestion, no scleral icterus. NECK: No stridor, no adenopathy, no meningismus, trachea is midline. LUNGS: Clear to auscultation bilaterally, no wheeze, no rhonchi, breath sounds equal. HEART: 3/6 systolic murmur, regular rate and rhythm. ABDOMEN: Soft, nontender, bowel sounds positive, no hernias, no peritonitis. BACK: Mild bilateral flank discomfort to percussion. EXTREMITIES: No cyanosis or edema, full range of motion of all the joints without pain or difficulty, no signs for acute trauma. NEUROLOGIC: Oriented x 3, no acute motor or sensory deficits, no focal weakness. SKIN: No rash, no jaundice, no diaphoresis. Course Course 1412: Past medical records reviewed. The patient was evaluated in room D01B. A complete history and physical exam was performed. 1422: I spoke to Dr. Mo [facility] [address] Hospitalist who accepts the patient for admission. 1440: I checked on the patient and she is fine with overnight admission and IV antibiotics. The patient verbally expressed understanding and agreement of the treatment plan. The patient will be evaluated by the hospitalist for further treatment. Administered Medications Atorvastatin Calcium (Lipitor) 80 mg PO HS ANGELLA Stop: 07/11/19 20:59 Last Admin: 06/11/19 20:00 Dose: 80 mg Documented by: [id number] Gabapentin (Neurontin) 600 mg PO BID ANGELLA Stop: 07/11/19 20:59 Last Admin: 06/11/19 20:01 Dose: 600 mg Documented by: [id number] Insulin Aspart (Novolog Flexpen) [address] [facility] Stop: 07/11/19 18:14 Last Admin: 06/11/19 18:08 Dose: Not Given Documented by: [id number] Lamotrigine (Lamictal) 50 mg PO [facility] Stop: 07/11/19 20:59 Last Admin: 06/11/19 20:00 Dose: 50 mg Documented by: [id number] Magnesium Oxide (Mag-Ox) 400 mg PO [facility] Stop: 07/11/19 20:59 Last Admin: 06/11/19 20:01 Dose: 400 mg Documented by: [id number] Metoprolol Succinate ([facility]rol Xl) [facility] [place] Stop: 07/11/19 17:41 Last Admin: 06/11/19 19:59 Dose: 50 mg Documented by: [id number] Oxycodone HCl (Roxicodone Immediate Rel) 5 mg PO TID PRN PRN Reason: Pain Stop: 06/25/19 18:17 Last Admin: 06/11/19 19:59 Dose: 5 mg Documented by: [id number] Pantoprazole Sodium (Protonix) 40 mg PO BID [facility] Stop: 07/11/19 20:59 Last Admin: 06/11/19 20:02 Dose: 40 mg Documented by: [id number] Spironolactone (Aldactone) 50 mg PO BID [facility] Stop: 07/11/19 20:59 Last Admin: 06/11/19 20:00 Dose: 50 mg Documented by: [id number] Trazodone HCl (Desyrel) 150 mg PO [facility] Stop: 07/11/19 20:59 Last Admin: 06/11/19 20:00 Dose: 150 mg Documented by: [id number] Discontinued Medications Ertapenem 1,000 mg/ Sodium (Chloride) 60 mls @ 100 mls/hr IV NOW ONE Stop: 06/11/19 15:05 Last Infusion: 06/11/19 15:57 Dose: 0 mls/hr Documented by: [id number] Admin: 06/11/19 15:22 Dose: 100 mls/hr Documented by: [id number] Sodium Chloride (Nss 1000ml) 500 mls @ 999 mls/hr IV .Q31M ONE Stop: 06/11/19 14:49 Last Infusion: 06/11/19 15:20 Dose: 0 mls/hr Documented by: [id number] Admin: 06/11/19 14:41 Dose: 999 mls/hr Documented by: [id number] Medical Decision Making Differential Diagnosis Differential diagnosis includes but is not limited to pyelonephritis, UTI, resistant UTI, dehydration, renal failure, electrolyte imbalance, failed outpatient treatment. Medical Records Attestation: I reviewed the patient's medical records. Home Medications Current Medication List: was personally reviewed by ut Laboratory Data Attestation: I reviewed the patient's lab results. Result diagrams: 06/11/19 14:30 06/11/19 14:30 Lab Results 06/11/19 06/11/19 06/11/19 Range/Units 14:20 14:30 14:30 WBC 7.37 (4.8-10.8) K/uL RBC 4.63 (4.2-5.4) M/uL Hgb 12.1 (12.0-16.0) g/dL Hct 36.7 L (37-47) % MCV 79.3 L (80-100) fL MCH 26.1 (25-34) pg MCHC 33.0 (32-36) g/dL RDW Std Deviation 48.7 H (36.4-46.3) fL RDW Coeff of Guillermo 16.9 H (11.5-14.5) % Plt Count 143 (130-400) K/uL MPV 10.4 (7.4-10.4) fL Immature Gran % (Auto) 0.3 % Neut % (Auto) 67.2 % Lymph % (Auto) 20.5 % [place] % (Auto) 11.0 % Eos % (Auto) 0.7 % Baso % (Auto) 0.3 % Immature Gran # (Auto) 0.02 (0.00-0.02) K/uL Neut # (Auto) 4.96 (1.4-6.5) K/uL Lymph # (Auto) 1.51 (1.2-3.4) K/uL [place] # (Auto) 0.81 H (0.11-0.59) K/uL Eos # (Auto) 0.05 (0-0.5) K/uL Baso # (Auto) 0.02 (0-0.2) K/uL Sodium 131 L (136-145) mmol/L Potassium 3.8 (3.5-5.1) mmol/L Chloride 101 (98-107) mmol/L Carbon Dioxide 24 (21-32) mmol/L Anion Gap 6.0 (3-11) BUN 9 (7-18) mg/dl Creatinine 0.95 (0.6-1.2) mg/dl Est Cr Clr Drug Dosing 68.6 ml/min Est GFR ( Amer) 70.8 Est GFR (Non-Af Amer) 61.1 BUN/Creatinine Ratio 10.0 (10-20) Glucose 184 H (70-99) mg/dl Calcium 9.5 (8.5-10.1) mg/dl Urine Color Yellow Urine Appearance Cloudy A (Clear) Urine pH 5.5 (4.5-7.5) Ur Specific [place] 1.013 (1.000-1.030) Urine Protein Negative (Negative) Urine Glucose (UA) 2+ H (Negative) Urine Ketones Negative (Negative) Urine Blood Negative (Negative) Urine Nitrite Positive A (Negative) Urine Bilirubin Negative (Negative) Urine Urobilinogen Negative (Negative) Ur Leukocyte Esterase 2+ H (Negative) Urine WBC (Auto) >30 H (0-5) /hpf Urine RBC (Auto) 0-4 (0-4) /hpf U Hyaline Cast (Auto) 1-5 (0-5) /lpf U Epithel Cells (Auto) 5-10 H (0-5) /lpf Urine Bacteria (Auto) 3+ H (Negative) Imaging Data Radiologist's Impression: Radiology results as stated below per my review and th e radiologist's interpretation: US renal/blad retro comp HISTORY: Flank pain flank pain, poss hydro COMPARISON: None. FINDINGS: Right kidney: Maximum dimension 10.7 cm. No evidence for hydronephrosis. Normal corticomedullary differentiation and cortical thickness. Left kidney: Maximum dimension 10.4 cm. No evidence for hydronephrosis. Normal corticomedullary differentiation and cortical thickness. Bladder: No bladder wall thickening. The bilateral ureteral jets were identified. IMPRESSION: Normal renal ultrasound. The above report was generated using voice recognition software. It may contain grammatical, syntax or spelling errors. Electronically signed by: Tony Rubi M.D. 06/11/2019 3:19 PM Blood Pressure Blood Pressure Findings: Elevated blood pressure Blood Pressure Disposition: further management by hospitalist KELLY John There is no leukocytosis or concerning anemia. No significant electrolyte abnormality or kidney failure. Urinalysis does suggest infection. Urine culture is pending. Urine culture from earlier this month did show E. coli. There was significant resistance and only IV antibiotics are going to be effective. She has an ESBL. A renal ultrasound was done, there was no hydronephrosis. The ultrasound was read as unremarkable. The patient received IV saline, she was given IV Ertapenem as antibiotic coverage. This antibiotic should treat her resistant infection. Given the flank pain, given the fevers, given the persistent symptoms for months, I do think a hospitalization is warranted. She is going to require IV antibiotic therapy, possibly IV antibiotic therapy as an outpatient once discharged from the hospital. I spoke to the patient, I talked to case management. The on-call hospitalist was consulted. Impression & Plan UTI (urinary tract infection), Failure of outpatient treatment, Flank pain Discharge Plan Visit Data *Final* Discharge Date/Time: 06/11/19 17:16 Chief Complaint: Urinary Symptoms Stated Complaint: UTI SINCE APR ED Provider: Berto Magaña Discharge Problem: UTI (urinary tract infection), Failure of outpatient treatment, Flank pain Patient Disposition: Admitted As Inpatient Discharge Instructions Interventions: ED Discharge Assessment Last Done: 06/11/19 17:16 Discharge Problem: UTI (urinary tract infection) Qualifiers: Urinary tract infection type: site unspecified Hematuria presence: without hematuria Qualified Code(s): N39.0 - Urinary tract infection, site not specified The scribe's documentation has been prepared under my direction and personally reviewed by me in its entirety. I confirm that the note above accurately reflects all work, treatment, procedures, and medical decision making performed by me.
--- NOTE | 2019-06-11 15:53 | History & Physical Report ---
Date of Service June 11, 2019 Assessment & Plan (1) Urinary tract infection due to ESBL Klebsiella: This is a 68-year-old female who has significant past medical history of CAD with history of CABG x1 and multiple stents, T2DM, HTN, HLD, cirrhosis secondary to [place], diabetic gastroparesis, Charcot Rashmi tooth, neuropathy, chronic diastolic CHF, moderate left ear, GERD, portal hypertension gastropathy, thrombocytopenia, bipolar, anxiety, chronic pain syndrome secondary to back pain who presents to [facility] ED secondary to abnormal urine culture as outpatient. In ED patient had repeat urinalysis which appears consistent with UTI. Remains hemodynamically stable in ED. she is afebrile and WBC 7.37, sodium 131, BUN 9, creatinine 0.95, glucose 184. She had a renal ultrasound and is otherwise unremarkable. Based on urine culture performed outpatient she was started on IV ertapenem empirically. admit to med/surg tele Continue IV ertapenem Urine and blood cultures pending Infectious disease consulted Case management consulted - [facility] at home patient - likely to need IV antibiotics at discharge (2) CAD (coronary artery disease): No chest pain or shortness of breath Continue ASA, statin, Imdur, metoprolol (3) Chronic diastolic CHF (congestive heart failure): Chronic diastolic CHF with known moderate Currently euvolemic Daily weights, strict I's and Os Continue metoprolol, Aldactone Prescribed torsemide 20 mg daily but patient states she has not been taking it for several weeks Monitor volume status (4) Hypertension: Blood pressure controlled Continue metoprolol, Imdur, Aldactone (5) DM type 2 (diabetes mellitus, type 2): Last A1c 6.3 in February 2019 Obtain A1c in a.m. Outpatient regimen of metformin 1 g twice daily, Trulicity injection weekly She is prescribed Levemir 25 units in a.m. and 20 units in p.m. but has not been taking secondary to blood sugars being acceptable Placed on Lantus/NovoLog per protocol, hold metformin (6) ESPANA (nonalcoholic steatohepatitis): Cirrhosis with portal hypertensive gastropathy No signs or symptoms of hepatic encephalopathy Euvolemic Continue Aldactone Takes lactulose as needed, having 2-3 bowel movements daily (7) Hypothyroidism: Continue levothyroxine (8) Portal hypertensive gastropathy: Continue omeprazole twice daily along with famotidine (9) Gastroparesis: Continue PRN antiemetic (10) Hyponatremia: Sodium 131 Patient with history of cirrhosis, appears chronic per recent labs She is prescribed torsemide and Aldactone as outpatient, but is only taking Aldactone Repeat BMP in a.m. Received IVF in ED (11) Nhiehva-Oaetw-Lxcho disease: Continue gabapentin She has bilateral lower extremity braces (12) Bipolar disorder: Continue Lamictal and Effexor (13) Anxiety: Takes clonazepam 0.5 mg twice daily as needed (14) Chronic pain syndrome: Continue morphine sulfate 50 mg every 12 hours, oxycodone 5 mg 3 times daily as needed (15) DVT prophylaxis: SCD/TEDS for now if pt to require > 24 hour hospitalization would add SQ Lovenox (pt with cirrhosis and portal HTN gastropathy) Disposition: Admit to Med/surg tele - pt likely able to be discharge once IV antibiotics arranged as outpt Follow up: PCP Dr. Domínguez upon discharge Patient was seen and examined in collaboration Dr. Mo, please see addendum History of Present Illness Chief Complaint: Referred by PCP secondary to abnormal urine culture. Primary Care Provider: Brian Domínguez MD This is a 68-year-old female who has significant past medical history of CAD with history of CABG x1 and multiple stents, T2DM, HTN, HLD, cirrhosis secondary to [place], diabetic gastroparesis, Charcot Rashmi tooth, neuropathy, chronic diastolic CHF, moderate left ear, GERD, portal hypertension gastropathy, thrombocytopenia, bipolar, anxiety, chronic pain syndrome secondary to back pain who presents to [facility] ED secondary to abnormal urine culture as outpatient. Since April patient has had recurrent urinary tract infections. Initial urine culture April 10 grew greater than 100,000 Proteus mirabilis. Subsequent urine cultures grew greater than 100,000 E. coli. Most recent urine culture done on 06/07/2019 revealed ESBL E. coli resistant to multiple oral antibiotics. She has been on 4 prior antibiotics including Bactrim, Macrobid, Keflex and most recently Augmentin. Symptoms would improve but would subsequently return after completion of antibiotic course. She finished Augmentin approximately 1 week ago. Over the past 5 days she has developed increased urinary urgency, incontinence, increased urine frequency, dysuria, low-grade elevated temperature 99 4 and suprapubic abdominal discomfort. She denies documented fever, chills, sweats, lightheadedness, dizziness, syncope, chest pain, palpitations, shortness of breath, cough, hemoptysis, emesis, abdominal pain. She does have chronic nausea secondary to diabetic gastroparesis. She also moves bowels 2-3 times a day. She does not take her lactulose because of this, but when she does not move her bowels more than twice daily she takes it. Patient takes multiple medications and she did discuss this. She does not feel it is much of a burden because she splits medications up 3 times daily. She did elicit that she has not been taking her insulin or her torsemide recently. In ED patient had repeat urinalysis which appears consistent with UTI. Remains hemodynamically stable in ED. she is afebrile and WBC 7.37, sodium 131, BUN 9, creatinine 0.95, glucose 184. She had a renal ultrasound is otherwise unremarkable. Based on urine culture performed outpatient she was started on IV ertapenem empirically. Reviewed outpt records in [facility] and discussed case with ED provider. Allergies Allergy/AdvReac Type Severity Reaction Status Date / Time propoxyphene Allergy Mild Rash Verified 11/27/18 09:14 fentanyl Allergy Unknown PANIC Verified 11/27/18 09:14 WANTS TO RUN AND AGGRESSIVE zolpidem AdvReac Intermediate confusion Verified 11/27/18 09:14 methocarbamol AdvReac Mild DELERIUM Verified 11/27/18 09:14 Home Medications Home Medications Medication Instructions Recorded Confirmed Type albuterol sulfate [Ventolin HFA] 2 puff INHALATION QID PRN 04/27/18 06/11/19 History aripiprazole 2 mg PO HS 04/27/18 06/11/19 History atorvastatin 80 mg PO HS 04/27/18 06/11/19 History benzonatate 100 mg PO TID PRN 04/27/18 06/11/19 History clonazepam 0.5 mg PO BID PRN 04/27/18 06/11/19 History dicyclomine 10 mg PO QID PRN 04/27/18 06/11/19 History dulaglutide 0.5 ml SUBCUT WK 04/27/18 06/11/19 History ergocalciferol (vitamin D2) 50,000 units PO WK 04/27/18 06/11/19 History famotidine 40 mg PO HS 04/27/18 06/11/19 History gabapentin 600 mg PO BID 04/27/18 06/11/19 History insulin detemir U-100 20 units SUBCUT HS 04/27/18 06/11/19 History insulin detemir U-100 25 units SUBCUT QAM 04/27/18 06/11/19 History lactulose 30 ml PO DAILY PRN 04/27/18 06/11/19 History lamotrigine 25 mg PO QAM 04/27/18 06/11/19 History lamotrigine 50 mg PO HS 04/27/18 06/11/19 History lamotrigine 100 mg PO QAM 04/27/18 06/11/19 History levothyroxine 88 mcg PO QAM 04/27/18 06/11/19 History magnesium oxide 400 mg PO HS 04/27/18 06/11/19 History metformin 1,000 mg PO BID 04/27/18 06/11/19 History metoprolol succinate 50 mg PO BIDM 04/27/18 06/11/19 History nitroglycerin [Nitrostat] 0.4 mg SUBLINGUAL DIRECTED PRN 04/27/18 06/11/19 History omeprazole 20 mg PO BID 04/27/18 06/11/19 History ondansetron HCl 8 mg PO Q8H PRN 04/27/18 06/11/19 History oxycodone 5 - 10 mg PO TID PRN MDD 20mg 04/27/18 06/11/19 History trazodone 150 mg PO HS 04/27/18 06/11/19 History venlafaxine 75 mg PO QAM 04/27/18 06/11/19 History venlafaxine 150 mg PO QAM 04/27/18 06/11/19 History aspirin 81 mg PO QAM 09/03/18 06/11/19 History isosorbide mononitrate 60 mg PO QAM 09/03/18 06/11/19 History spironolactone 50 mg PO BID 09/03/18 06/11/19 History torsemide 20 mg PO QAM 09/03/18 06/11/19 History morphine 15 mg PO Q12H 11/27/18 06/11/19 History montelukast 10 mg PO DAILY 06/11/19 06/11/19 History oxybutynin chloride 10 mg PO DAILY 06/11/19 06/11/19 History Past Med/Surg History Medical History Anxiety (Chronic) Bipolar disorder (Chronic) CAD (coronary artery disease) (Chronic) History of multiple PCI's to the RCA with subsequent CABG x1 in 2010 x 1 vessel Most recent cardiac testing-negative DSE in December 2017 Follows w/ Dr. Blackwell and Dr. Lucas Pmaadjt-Cjhbu-Jttzv disease (Chronic) follows w/ Dr. Lemus Chronic diastolic CHF (congestive heart failure) (Chronic) Depression DM type 2 (diabetes mellitus, type 2) (Chronic) IDDM Dyslipidemia (Chronic) Gastroparesis (Chronic) GERD (gastroesophageal reflux disease) Hypertension (Chronic) Hypothyroidism (Chronic) Liver cirrhosis secondary to [place] Moderate aortic stenosis (Chronic) ESPANA (nonalcoholic steatohepatitis) (Chronic) follows w/ Dr. Rosenthal Osteoarthritis Portal hypertensive gastropathy (Chronic) Spondylosis Surgical History History of appendectomy (Chronic) History of back surgery (Chronic) History of cardiac cath multiple - most recent 1-2 years ago @ [place] - [facility] - no stents/angioplasty History of total right knee replacement (Chronic) Hx of cholecystectomy (Chronic) S/P CABG x 1 (Chronic) 2010 - single vessel S/P CARLOS (total abdominal hysterectomy) (Chronic) Family History Father Coronary heart disease Brother Coronary heart disease Social History (Updated 06/11/19 @ 16:04 by Nayla Weber PA-C) Preferred Language: [place] Communication Ability: Effective Carboy Filler Required: No Beliefs That Will Affect Care: None Current Living Situation: Alone Other Information That Helps Us Care for You: No Feels Safe at Home: Yes Safety Concerns: Feels Safe At This Time Smoking Status: Never smoker Second Hand Exposure: Yes ; Hx Alcohol Use: No Hx Substance Use: No Review of Systems Review of Systems: All systems reviewed & are unremarkable except as noted in HPI & below Physical Exam Physical Exam: Constitutional: WD/WN, vitals as above, NAD, sitting up in bed, pleasant, conversing easily Head: Normocephalic, Atraumatic Eyes: PERRL, conjunctivae normal, anicteric sclerae ENMT: external ear and nose normal, oropharynx normal Neck: trachea midline, no thyromegaly normal visual inspection Respiratory: normal respiratory effort, lungs clear to auscultation, no wheeze, rales, rhonchi. Normal insp/exp effort, no accessory muscle use Cardiovascular: RRR, 2/6 systolic ejection murmur noted RUSB, no edema Vessels: no JVD or carotid bruit Chest: normal inspection of chest Abdomen: Obese abdomen, normal bowel sounds, soft, nontender, no hepatosplenomegaly Musculoskeletal: no cyanosis or clubbing, extremities motor strength 5/5, bilateral lower extremity with braces intact secondary to CMT Skin: no rashes, warm and dry normal turgor Neurologic: PERRL, EOMI, accommodation nl, no face palsy, no dysarthria CN's II-XI intact bilaterally and moves all extremities Psychiatric: A+Ox3, euthymic affect Lymphatic: no cervical or axillary lymphadenopathy : deferred Results & Data Vital Signs (Past 12 Hours) Vital Signs Temp Pulse Pulse Resp BP BP Pulse Ox 06/11/19 15:23 66 18 125/55 L 98 06/11/19 13:20 37.2 C 67 18 138/69 99 Laboratory Results Short CBC 06/11/19 Range/Units 14:30 WBC 7.37 (4.8-10.8) K/uL Hgb 12.1 (12.0-16.0) g/dL Hct 36.7 L (37-47) % Plt Count 143 (130-400) K/uL BMP 06/11/19 14:30 Sodium 131 L Potassium 3.8 Chloride 101 Carbon Dioxide 24 BUN 9 Creatinine 0.95 Glucose 184 H Calcium 9.5 Urine 06/11/19 Range/Units 14:20 Urine Color Yellow Urine Appearance Cloudy A (Clear) Urine pH 5.5 (4.5-7.5) Ur Specific [place] 1.013 (1.000-1.030) Urine Protein Negative (Negative) Urine Glucose (UA) 2+ H (Negative) Status: Final result Visible to patient: No (Inaccessible in Pt Portal) Next appt: 06/14/2019 at 04:00 PM in *Primary Care* (Oskar Fuchs RN) Dx: UTI (urinary tract infection) Ref Range & Units 4d ago Resulting Agency SPECIMEN DESCRIPTION CLEAN CATCH URINE R CULTURE >100,000 COLONIES/ML ESCHERICHIA COLI ESBL PRODUCING ORGANISM THIS GRAM NEGATIVE BACILLI DISPLAYS IN VITRO RESISTANCE TO MULTIPLE ANTIBIOTICS. THIS PATIENT MAY REQUIRE ISOLATION. CARBAPENEM USE IS PREFERRED. CONTACT INFECTIOUS DISEASE SERVICE FOR FURTHER RECOMMENDATIONS. [facility] CULTURE LESS THAN 10,000 COLONIES/ML MIXED NORMAL MOHSEN [facility] REPORT STATUS 06/10/2019 FINAL [facility] ORGANISM ESCHERICHIA COLI [facility] ORGANISM ESCHERICHIA COLI [facility] Susceptibility Escherichia coli (ZZ00) Escherichia coli (ZZ01) Not Specified Not Specified AMPICILLIN RESISTANT AMPICILLIN/SULBACTAM SENSITIVE CEFEPIME SENSITIVE CEFTRIAXONE RESISTANT CIPROFLOXACIN RESISTANT ERTAPENEM SENSITIVE GENTAMICIN SENSITIVE LEVOFLOXACIN RESISTANT MEROPENEM SENSITIVE NITROFURANTOIN SENSITIVE PIPERACILLIN TAZOBACTAM SENSITIVE TRIMETH-SULFAMETHOXAZOLE RESISTANT Susceptibility Comments Escherichia coli (ZZ00) >100,000 COLONIES/ML ESCHERICHIA COLI ESBL PRODUCING ORGANISM THIS GRAM NEGATIVE BACILLI DISPLAYS IN VITRO RESISTANCE TO MULTIPLE ANTIBIOTICS. THIS PATIENT MAY REQUIRE ISOLATION. CARBAPENEM USE IS PREFERRED. CONTACT INFECTIOUS DISEASE SERVICE FOR FURTHER RECOMMENDATIONS. Escherichia coli (ZZ01) >100,000 COLONIES/ML ESCHERICHIA COLI ESBL PRODUCING ORGANISM THIS GRAM NEGATIVE BACILLI DISPLAYS IN VITRO RESISTANCE TO MULTIPLE ANTIBIOTICS. THIS PATIENT MAY REQUIRE ISOLATION. CARBAPENEM USE IS PREFERRED. CONTACT INFECTIOUS DISEASE SERVICE FOR FURTHER RECOMMENDATIONS. Diagnostic Findings Renal U/S: FINDINGS: Right kidney: Maximum dimension 10.7 cm. No evidence for hydronephrosis. Normal corticomedullary differentiation and cortical thickness. Left kidney: Maximum dimension 10.4 cm. No evidence for hydronephrosis. Normal corticomedullary differentiation and cortical thickness. Bladder: No bladder wall thickening. The bilateral ureteral jets were identified. IMPRESSION: Normal renal ultrasound. Medications Administered Discontinued Medications Ertapenem 1,000 mg/ Sodium (Chloride) 60 mls @ 100 mls/hr IV NOW ONE Stop: 06/11/19 15:05 Last Infusion: 06/11/19 15:57 Dose: 0 mls/hr Documented by: [id number] Admin: 06/11/19 15:22 Dose: 100 mls/hr Documented by: [id number] Sodium Chloride (Nss 1000ml) 500 mls @ 999 mls/hr IV .Q31M ONE Stop: 06/11/19 14:49 Last Infusion: 06/11/19 15:20 Dose: 0 mls/hr Documented by: [id number] Admin: 06/11/19 14:41 Dose: 999 mls/hr Documented by: [id number] Code Status & VTE Plan Code Status Full Code VTE Prophylaxis Plan VTE Prophylaxis will be ordered: Yes Supervising Physician Co-Signing Physician Notes I have seen and examined the patient and have discussed the case with the provider above. I agree with the assessment and plan as stated with the following exceptions. 68 yo F with UTI symptoms for the past month refractory to multiple rounds of antibiotics. Now with a MDR ESBL E coli and persistent symptoms. Hemodynamically stable and afebrile. Ertapenem in place. Consult ID for recs, and will likely need IV abx going home. Physical exam reveals a pleasant, well-appearing female in NAD who is eating regular food without issue. Heart and lung exams are normal. No CVA tenderness, abdomen is soft, slightly tender in suprapubic region, and nondistended. Cont ertapenem and added pyridium for comfort. Pt is hoping to be discharged tomorrow. Baldwin, DO
[2019-06-11] MEDS ORDERED: GLUCOSE 10 TABS/TUBE PO PRN (17:42)
[2019-06-11] MEDS ORDERED: GLUCOSE 40% GEL 15 GM TUBE PO PRN (17:42)
[2019-06-11] MEDS ORDERED: GLUCAGON FOR INJ 1 MG VIAL SQ PRN (17:42)
[2019-06-11] MEDS ORDERED: ALUMINUM/MAGNESIUM SUSP 30 ML UDC PO PRN (17:42)
[2019-06-11] MEDS ORDERED: CARBOHYDRATES FOR HYPOGLYCEMIA PO PRN (17:42)
[2019-06-11] MEDS ORDERED: MAGNESIUM HYDROXIDE SUSP 30 ML UDC PO PRN (17:42)
[2019-06-11] MEDS ORDERED: DEXTROSE 50% 50 ML SYRINGE IV PRN (17:42)
[2019-06-11] MEDS ORDERED: DICYCLOMINE HCL 10 MG CAP PO PRN (17:42)
[2019-06-11] MEDS ORDERED: POLYETHYLENE (MIRALAX) 17 GM PACK PO PRN (17:42)
[2019-06-11] MEDS: INSULIN ASPART 100 UNITS/ML 3 ML PEN SC SCH ×2 (18:08→21:11)
[2019-06-11] MEDS ORDERED: ERTAPENEM CONSULT ACTIVE PRN (18:11)
[2019-06-11] MEDS: METOPROLOL SUCC 50MG EXT REL TAB PO SCH (19:59)
[2019-06-11] MEDS: OXYCODONE HCL IR 5 MG TAB (IMMEDIATE RELEASE) PO PRN (19:59)
[2019-06-11] MEDS: TRAZODONE HCL 50 MG TAB PO SCH (20:00)
[2019-06-11] MEDS: ATORVASTATIN 40 MG TAB PO SCH (20:00)
[2019-06-11] MEDS: SPIRONOLACTONE 25 MG TAB PO SCH (20:00)
[2019-06-11] MEDS: lamoTRIgine 25 MG TAB PO SCH (20:00)
[2019-06-11] MEDS: MAGNESIUM OXIDE 400 MG TAB PO SCH (20:01)
[2019-06-11] MEDS: GABAPENTIN 600 MG TAB PO SCH (20:01)
[2019-06-11] MEDS: PANTOprazole 40 MG TAB PO SCH (20:02)
[2019-06-11] MEDS: MoRPHine SULFATE CR 15 MG TABCR PO SCH (21:01)
[2019-06-11] MEDS: ARIPIprazole 1 MG/ML ORAL SOLN 150 ML BTL PO SCH (21:01)
[2019-06-11] MEDS: PHENAZOPYRIDINE HCL 200 MG TAB PO SCH (21:02)
[2019-06-11] MEDS: FAMOTIDINE 40 MG TABLET PO SCH (21:09)
[2019-06-11] MEDS: INSULIN GLARGINE SOLOSTAR 100 UNITS/ML 3 ML PEN SC SCH (21:11)
[2019-06-12] MEDS: OXYCODONE HCL IR 5 MG TAB (IMMEDIATE RELEASE) PO PRN ×2 (04:09→15:05)
[2019-06-12] MEDS: LEVOTHYROXINE SODIUM 88 MCG TABLET PO SCH (06:05)
[2019-06-12 07:56] LABS: Basophils # (auto) 0.02 K/uL (0-0.2); Basophils % (auto) 0.4 %; Eosinophils # (auto) 0.12 K/uL (0-0.5); Eosinophils % (auto) 2.2 %; Hematocrit (blood only) 33.6 % (37-47); Hemoglobin 10.6 g/dL (12.0-16.0); Immature Granulocytes # (auto) 0.03 K/uL (0.00-0.02); Immature Granulocytes % (auto) 0.6 %; Lymphocytes # (auto) 1.61 K/uL (1.2-3.4); Lymphocytes % (auto) 29.9 %; Mean Corpuscular Hemoglobin 25.6 pg (25-34); Mean Corpuscular Hgb Conc 31.5 g/dL (32-36); Mean Corpuscular Volume 81.2 fL (80-100); Mean Platelet Volume 9.3 fL (7.4-10.4); Monocytes # (auto) 0.74 K/uL (0.11-0.59); Monocytes % (auto) 13.7 %; Neutrophils # (auto) 2.87 K/uL (1.4-6.5); Neutrophils % (auto) 53.2 %; Platelet Count 109 K/uL (130-400); RDW Standard Deviation 50.8 fL (36.4-46.3); Red Blood Count 4.14 M/uL (4.2-5.4); White Blood Count 5.39 K/uL (4.8-10.8)
[2019-06-12 08:31] LABS: Albumin Level 2.9 gm/dl (3.4-5.0); BUN Creatinine Ratio 7.2 (10-20); Creatinine Clr Calc Pharmacy 67.3 ml/min; Est GFR (African American) 69.9; Est GFR (Non-African American) 60.3; Magnesium 1.8 mg/dl (1.8-2.4); Potassium 3.7 mmol/L (3.5-5.1)
[2019-06-12 08:34] LABS: Albumin Globulin Ratio 0.9 (0.9-2); Bilirubin,Total 0.7 mg/dl (0.2-1); Globulin 3.3 gm/dl (2.5-4.0); Total Protein 6.2 gm/dl (6.4-8.2)
[2019-06-12 08:37] LABS: Estimated Average Glucose 154 mg/dl
[2019-06-12] MEDS: INSULIN GLARGINE SOLOSTAR 100 UNITS/ML 3 ML PEN SC SCH ×2 (08:49→21:40)
[2019-06-12] MEDS: INSULIN ASPART 100 UNITS/ML 3 ML PEN SC SCH ×4 (08:50→21:40)
[2019-06-12] MEDS: PHENAZOPYRIDINE HCL 200 MG TAB PO SCH ×3 (08:51→20:29)
[2019-06-12] MEDS: MoRPHine SULFATE CR 15 MG TABCR PO SCH ×2 (08:51→20:32)
[2019-06-12] MEDS: SPIRONOLACTONE 25 MG TAB PO SCH ×2 (08:52→20:25)
[2019-06-12] MEDS: METOPROLOL SUCC 50MG EXT REL TAB PO SCH ×2 (08:52→18:19)
[2019-06-12] MEDS: ASPIRIN 81 MG ECTAB PO SCH (08:53)
[2019-06-12] MEDS: OXYBUTYNIN CHLORIDE XL 5 MG TABCR PO SCH (08:53)
[2019-06-12] MEDS: ISOSORBIDE MONO EXTENDED REL 60 MG TABCR PO SCH (08:54)
[2019-06-12] MEDS: VENLAFAXINE HCL XR 75 MG CAPXR PO SCH (08:54)
[2019-06-12] MEDS: VENLAFAXINE HCL XR 150 MG CAPXR PO SCH (08:54)
[2019-06-12] MEDS: PANTOprazole 40 MG TAB PO SCH ×2 (08:55→20:28)
[2019-06-12] MEDS: GABAPENTIN 600 MG TAB PO SCH ×2 (08:55→20:28)
[2019-06-12] MEDS: lamoTRIgine 100 MG TAB PO SCH (08:55)
[2019-06-12] MEDS: MONTELUKAST SODIUM 10 MG TABLET PO SCH (08:56)
[2019-06-12] MEDS ORDERED: ASPIRIN 81 MG ECTAB PO SCH (09:00)
[2019-06-12] MEDS: lamoTRIgine 25 MG TAB PO SCH ×2 (10:50→20:26)
--- NOTE | 2019-06-12 14:31 | Hospitalist Progress Note ---
Date of Service June 12, 2019 Assessment & Plan (1) Urinary tract infection due to ESBL Klebsiella: Outpatient urine culture grew ESBL resistant to multiple oral abx repeat urine cx in the ER positive for Ecoli Continue IV abx with Ertapenem for now ID on board, waiting for input for abx duration Will discuss with case management to arrange for outpatient abx infusion Clinically stable (2) CAD (coronary artery disease): No chest pain or shortness of breath Continue ASA, statin, Imdur, metoprolol (3) Chronic diastolic CHF (congestive heart failure): Chronic diastolic CHF with known moderate Currently euvolemic Continue metoprolol, Aldactone Has not been taking Torsemide, Will resume it tomorrow Monitor for sign of overload (4) Hypertension: Blood pressure controlled Continue metoprolol, Imdur, Aldactone (5) DM type 2 (diabetes mellitus, type 2): Most recent Hba1c 7 Outpatient regimen of metformin 1 g twice daily, Trulicity injection weekly She is prescribed Levemir 25 units in a.m. and 20 units in p.m. but has not been taking secondary to blood sugars being acceptable On Lantus/NovoLog per protocol hold metformin while inpatient (6) GONZALEZ (nonalcoholic steatohepatitis): Cirrhosis with portal hypertensive gastropathy No signs or symptoms of hepatic encephalopathy Euvolemic Continue Aldactone Continue lactulose as needed (7) Hypothyroidism: Continue levothyroxine (8) Portal hypertensive gastropathy: Continue omeprazole twice daily and famotidine (9) Gastroparesis: Continue PRN antiemetic (10) Hyponatremia: Sodium 133 today Continue monitor BPM (11) Rpbdjbk-Ubozw-Cqlpg disease: Continue gabapentin She has bilateral lower extremity braces (12) Bipolar disorder: Continue Lamictal and Effexor (13) Anxiety: Takes clonazepam 0.5 mg twice daily as needed (14) Chronic pain syndrome: Continue morphine sulfate 50 mg every 12 hours, oxycodone 5 mg 3 times daily as needed (15) DVT prophylaxis: SCD/TEDS for now Will add Lovenox sub Subjective Pt was seen and examined Lying in bed with no distress Pt said that she feels ok She said that she is still having generalized pain Denied any chest pain, palpitation and SOB Physical Exam Physical Exam: General- No acute distress Head- atraumatic Eyes- PERRL, EOMI, ENT- oropharynx clear Neck- supple, no JVD Lungs- clear to auscultation Heart- regular rhythm; +Systolic Outmurmur Abdomen- normal bowel sounds, soft, nontender Extremities- no calf tenderness Neuro- alert, oriented x 3; PERRL, EOMI; no facial palsy; no dysarthria Skin- warm & dry Results & Data Vital Signs (Past 12 Hours) Vital Signs Temp Pulse Resp BP Pulse Ox 06/12/19 11:35 36.4 C L 70 18 126/75 93 06/12/19 07:41 36.4 C L 62 20 104/62 93 06/12/19 02:58 36.7 C 68 14 111/69 93
[2019-06-12] MEDS: ERTAPENEM SODIUM 1,000 MG in SODIUM CHLORIDE 0.9% 50 ML IV SCH (15:06)
[2019-06-12] MEDS: ONDANSETRON INJ 2 MG/ML 2 ML VIAL IV PRN (19:29)
[2019-06-12] MEDS: ACETAMINOPHEN 325 MG TAB PO PRN (19:29)
[2019-06-12] MEDS: ARIPIprazole 1 MG/ML ORAL SOLN 150 ML BTL PO SCH (20:25)
[2019-06-12] MEDS: clonazePAM 0.5 MG TAB PO PRN (20:25)
[2019-06-12] MEDS: ATORVASTATIN 40 MG TAB PO SCH (20:26)
[2019-06-12] MEDS: TRAZODONE HCL 50 MG TAB PO SCH (20:26)
[2019-06-12] MEDS: MAGNESIUM OXIDE 400 MG TAB PO SCH (20:27)
[2019-06-12] MEDS: ENOXAPARIN INJ 40 MG/0.4 ML SYR SQ SCH (20:27)
[2019-06-12] MEDS: FAMOTIDINE 40 MG TABLET PO SCH (20:28)
[2019-06-13] MEDS: LEVOTHYROXINE SODIUM 88 MCG TABLET PO SCH (05:48)
--- NOTE | 2019-06-13 07:44 | Infectious Disease Consult ---
Date of Consultation June 13, 2019 Assessment & Plan (1) UTI (urinary tract infection): continue Ertapenem, will need 7 days total. History of Present Illness Attending Physician: Markos Marroquin MD pt admitted with uti, outpatient culture done and pt was instructed to go to ER. ER culture growing E. coli, final pending. has h/p ESBL + E. coli in recent past. she was placed on Ertapenem and is tolerating well. she has min abd discomfort and dysuria but overall is feeling better. denies f/c. no cp, sob, cough. no n/v/d. eating well. wbc 5, 12/6 UA +2 LE >30 wbc, +3 bacteria. Allergies Allergy/AdvReac Type Severity Reaction Status Date / Time propoxyphene Allergy Mild Rash Verified 11/27/18 09:14 fentanyl Allergy Unknown PANIC Verified 11/27/18 09:14 WANTS TO RUN AND AGGRESSIVE zolpidem AdvReac Intermediate confusion Verified 11/27/18 09:14 methocarbamol AdvReac Mild DELERIUM Verified 11/27/18 09:14 Home Medications Home Medications Medication Instructions Recorded Confirmed Type albuterol sulfate [Ventolin HFA] 2 puff INHALATION QID PRN 04/27/18 06/11/19 History aripiprazole 2 mg PO HS 04/27/18 06/11/19 History atorvastatin 80 mg PO HS 04/27/18 06/11/19 History benzonatate 100 mg PO TID PRN 04/27/18 06/11/19 History clonazepam 0.5 mg PO BID PRN 04/27/18 06/11/19 History dicyclomine 10 mg PO QID PRN 04/27/18 06/11/19 History dulaglutide 0.5 ml SUBCUT WK 04/27/18 06/11/19 History ergocalciferol (vitamin D2) 50,000 units PO WK 04/27/18 06/11/19 History famotidine 40 mg PO HS 04/27/18 06/11/19 History gabapentin 600 mg PO BID 04/27/18 06/11/19 History insulin detemir U-100 20 units SUBCUT HS 04/27/18 06/11/19 History insulin detemir U-100 25 units SUBCUT QAM 04/27/18 06/11/19 History lactulose 30 ml PO DAILY PRN 04/27/18 06/11/19 History lamotrigine 25 mg PO QAM 04/27/18 06/11/19 History lamotrigine 50 mg PO HS 04/27/18 06/11/19 History lamotrigine 100 mg PO QAM 04/27/18 06/11/19 History levothyroxine 88 mcg PO QAM 04/27/18 06/11/19 History magnesium oxide 400 mg PO HS 04/27/18 06/11/19 History metformin 1,000 mg PO BID 04/27/18 06/11/19 History metoprolol succinate 50 mg PO BIDM 04/27/18 06/11/19 History nitroglycerin [Nitrostat] 0.4 mg SUBLINGUAL DIRECTED PRN 04/27/18 06/11/19 History omeprazole 20 mg PO BID 04/27/18 06/11/19 History ondansetron HCl 8 mg PO Q8H PRN 04/27/18 06/11/19 History oxycodone 5 - 10 mg PO TID PRN MDD 20mg 04/27/18 06/11/19 History trazodone 150 mg PO HS 04/27/18 06/11/19 History venlafaxine 75 mg PO QAM 04/27/18 06/11/19 History venlafaxine 150 mg PO QAM 04/27/18 06/11/19 History aspirin 81 mg PO QAM 09/03/18 06/11/19 History isosorbide mononitrate 60 mg PO QAM 09/03/18 06/11/19 History spironolactone 50 mg PO BID 09/03/18 06/11/19 History torsemide 20 mg PO QAM 09/03/18 06/11/19 History morphine 15 mg PO Q12H 11/27/18 06/11/19 History montelukast 10 mg PO DAILY 06/11/19 06/11/19 History oxybutynin chloride 10 mg PO DAILY 06/11/19 06/11/19 History Patient History Medical History Anxiety (Chronic) Bipolar disorder (Chronic) CAD (coronary artery disease) (Chronic) History of multiple PCI's to the RCA with subsequent CABG x1 in 2010 x 1 vessel Most recent cardiac testing-negative DSE in December 2017 Follows w/ Dr. Blackwell and Dr. Lucas Hbmpkyz-Erctu-Kpzaf disease (Chronic) follows w/ Dr. 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 Rosenthal Osteoarthritis Portal hypertensive gastropathy (Chronic) Spondylosis Surgical History History of appendectomy (Chronic) History of back surgery (Chronic) History of cardiac cath multiple - most recent 1-2 years ago @ [facility] - [facility] - no stents/angioplasty History of total right knee replacement (Chronic) Hx of cholecystectomy (Chronic) S/P CABG x 1 (Chronic) 2010 - single vessel S/P CARLOS (total abdominal hysterectomy) (Chronic) Family History Father Coronary heart disease Brother Coronary heart disease Social History Preferred Language: Frisian Communication Ability: Effective Aircraft Engine Dismantler Required: No Beliefs That Will Affect Care: None Current Living Situation: Alone Other Information That Helps Us Care for You: No Feels Safe at Home: Yes Safety Concerns: Feels Safe At This Time Smoking Status: Never smoker Second Hand Exposure: Yes ; Hx Alcohol Use: No Hx Substance Use: No Review of Systems Review of Systems: All systems reviewed & are unremarkable except as noted in HPI & below Physical Exam Constitutional: WD/WN, vitals as above Eyes: PERRL, conjunctivae normal, anicteric sclerae ENMT: external ear and nose normal, oropharynx normal Neck: normal visual inspection Respiratory: normal respiratory effort, lungs clear to auscultation Cardiovascular: RRR, no murmur, no edema Gastrointestinal (Abdomen): normal bowel sounds, soft, nontender, no hepatosplenomegaly Musculoskeletal: no cyanosis or clubbing, extremities motor strength 5/5 Skin: no rashes, warm and dry Psychiatric: A+Ox3, euthymic affect Results & Data Vital Signs (Past 12 Hours) Vital Signs Temp Pulse Pulse Resp BP BP Pulse Ox 06/13/19 06:54 36.4 C L 53 L 18 114/73 96 06/13/19 02:58 36.5 C 56 L 19 123/63 95 06/12/19 23:08 53 L 06/12/19 22:43 36.4 C L 60 18 116/68 94 Laboratory Results Microbiology 06/11/19 14:20 Urine,Clean Catch Urine Culture - Preliminary Escherichia coli ESBL PG Care Time/CCT Total # of Minutes Spent Total Time Spent with Patient: Total time spent is greater than 50% in coordination of care (as documented) at patient's floor/unit and/or counseling patient: (1) UTI (urinary tract infection) Hematuria presence: without hematuria Urinary tract infection type: site unspecified Qualified Code(s): N39.0 - Urinary tract infection, site not specified
[2019-06-13] MEDS: MoRPHine SULFATE CR 15 MG TABCR PO SCH ×2 (09:42→20:33)
[2019-06-13] MEDS: GABAPENTIN 600 MG TAB PO SCH ×2 (09:43→20:36)
[2019-06-13] MEDS: PHENAZOPYRIDINE HCL 200 MG TAB PO SCH ×3 (09:43→20:38)
[2019-06-13] MEDS: ISOSORBIDE MONO EXTENDED REL 60 MG TABCR PO SCH (09:43)
[2019-06-13] MEDS: lamoTRIgine 100 MG TAB PO SCH (09:44)
[2019-06-13] MEDS: OXYBUTYNIN CHLORIDE XL 5 MG TABCR PO SCH (09:44)
[2019-06-13] MEDS: METOPROLOL SUCC 50MG EXT REL TAB PO SCH ×2 (09:44→18:32)
[2019-06-13] MEDS: SPIRONOLACTONE 25 MG TAB PO SCH ×2 (09:45→20:34)
[2019-06-13] MEDS: lamoTRIgine 25 MG TAB PO SCH ×2 (09:45→20:34)
[2019-06-13] MEDS: ASPIRIN 81 MG ECTAB PO SCH (09:46)
[2019-06-13] MEDS: VENLAFAXINE HCL XR 75 MG CAPXR PO SCH (09:47)
[2019-06-13] MEDS: PANTOprazole 40 MG TAB PO SCH ×2 (09:47→20:38)
[2019-06-13] MEDS: INSULIN GLARGINE SOLOSTAR 100 UNITS/ML 3 ML PEN SC SCH ×2 (09:47→20:35)
[2019-06-13] MEDS: VENLAFAXINE HCL XR 150 MG CAPXR PO SCH (09:47)
[2019-06-13] MEDS: INSULIN ASPART 100 UNITS/ML 3 ML PEN SC SCH ×4 (09:49→20:36)
[2019-06-13] MEDS: MONTELUKAST SODIUM 10 MG TABLET PO SCH (09:51)
[2019-06-13] MEDS: OXYCODONE HCL IR 5 MG TAB (IMMEDIATE RELEASE) PO PRN (12:03)
[2019-06-13] MEDS: ERTAPENEM SODIUM 1,000 MG in SODIUM CHLORIDE 0.9% 50 ML IV SCH (14:20)
--- NOTE | 2019-06-13 15:01 | Hospitalist Progress Note ---
Date of Service June 13, 2019 Assessment & Plan (1) Urinary tract infection due to ESBL Klebsiella: Outpatient urine culture grew ESBL resistant to multiple oral abx repeat urine cx in the ER positive for Ecoli Continue IV abx with Ertapenem ID on board recommended to continue Ertapenem to complete a total of 7 days course Case discussed with case management to arrange for outpatient abx infusion as per case management, due to her insurance, pt does not qualify for home infusion abx As per case management, pt will approve for [facility] Case discussed with patient and family and will decide if they will be able to get transportation to come to [facility] for the [facility]x infusion If they cannot come with transportation, she will stay in the hospital to complete the abx course Will wait for tomorrow to place an u/s guided peripheral if decides to come to the [facility] for the abx infusion Clinically stable (2) CAD (coronary artery disease): No chest pain or shortness of breath Continue ASA, statin, Imdur, metoprolol (3) Chronic diastolic CHF (congestive heart failure): Chronic diastolic CHF with known moderate Currently euvolemic Continue metoprolol, Aldactone Has not been taking Torsemide, Torsemide resumes today Monitor for sign of overload (4) Hypertension: Blood pressure controlled Continue metoprolol, Imdur, Aldactone (5) DM type 2 (diabetes mellitus, type 2): Most recent Hba1c 7 Outpatient regimen of metformin 1 g twice daily, Trulicity injection weekly She is prescribed Levemir 25 units in a.m. and 20 units in p.m. but has not been taking secondary to blood sugars being acceptable On Lantus/NovoLog per protocol hold metformin while inpatient (6) GONZALEZ (nonalcoholic steatohepatitis): Cirrhosis with portal hypertensive gastropathy No signs or symptoms of hepatic encephalopathy Euvolemic Continue Aldactone Continue lactulose as needed (7) Hypothyroidism: Continue levothyroxine (8) Portal hypertensive gastropathy: Continue omeprazole twice daily and famotidine (9) Gastroparesis: Continue PRN antiemetic (10) Hyponatremia: Sodium 133 today Continue monitor BPM (11) Ydfauoj-Orxxg-Lhfql disease: Continue gabapentin She has bilateral lower extremity braces (12) Bipolar disorder: Continue Lamictal and Effexor (13) Anxiety: Takes clonazepam 0.5 mg twice daily as needed (14) Chronic pain syndrome: Continue morphine sulfate 50 mg every 12 hours, oxycodone 5 mg 3 times daily as needed (15) DVT prophylaxis: SCD/TEDS for now Lovenox sub added Subjective Pt was seen and examined. Lying in bed with no distress. Pt said that she feels ok Daughter was present in the home and pt would like me to update her daughter Denies any chest pain, palpitation and SOB Physical Exam Physical Exam: General- No acute distress Head- atraumatic Eyes- PERRL, EOMI, ENT- oropharynx clear Neck- supple, no JVD Lungs- clear to auscultation Heart- regular rhythm; +Systolic Outmurmur Abdomen- normal bowel sounds, soft, nontender Extremities- no calf tenderness Neuro- alert, oriented x 3; PERRL, EOMI; no facial palsy; no dysarthria Skin- warm & dry Results & Data Vital Signs (Past 12 Hours) Vital Signs Temp Pulse Resp BP Pulse Ox 06/13/19 12:00 36.6 C 60 20 113/62 95 06/13/19 06:54 36.4 C L 53 L 18 114/73 96
[2019-06-13] MEDS: LACTULOSE SYRUP 20 GM/30 ML UDC PO PRN (17:30)
[2019-06-13] MEDS: ARIPIprazole 1 MG/ML ORAL SOLN 150 ML BTL PO SCH (20:32)
[2019-06-13] MEDS: TRAZODONE HCL 50 MG TAB PO SCH (20:34)
[2019-06-13] MEDS: ENOXAPARIN INJ 40 MG/0.4 ML SYR SQ SCH (20:35)
[2019-06-13] MEDS: ATORVASTATIN 40 MG TAB PO SCH (20:35)
[2019-06-13] MEDS: MAGNESIUM OXIDE 400 MG TAB PO SCH (20:36)
[2019-06-13] MEDS: FAMOTIDINE 40 MG TABLET PO SCH (20:38)
[2019-06-14] MEDS: ACETAMINOPHEN 325 MG TAB PO PRN (02:40)
[2019-06-14] MEDS: LEVOTHYROXINE SODIUM 88 MCG TABLET PO SCH (06:17)
[2019-06-14 08:05] LABS: Est GFR (African American) 83.4; Est GFR (Non-African American) 71.9; Potassium 4.1 mmol/L (3.5-5.1)
[2019-06-14] MEDS: INSULIN ASPART 100 UNITS/ML 3 ML PEN SC SCH ×4 (09:02→20:25)
[2019-06-14] MEDS: VENLAFAXINE HCL XR 150 MG CAPXR PO SCH (09:04)
[2019-06-14] MEDS: PANTOprazole 40 MG TAB PO SCH ×2 (09:04→20:17)
[2019-06-14] MEDS: ISOSORBIDE MONO EXTENDED REL 60 MG TABCR PO SCH (09:04)
[2019-06-14] MEDS: OXYBUTYNIN CHLORIDE XL 5 MG TABCR PO SCH (09:04)
[2019-06-14] MEDS: METOPROLOL SUCC 50MG EXT REL TAB PO SCH ×2 (09:04→18:00)
[2019-06-14] MEDS: VENLAFAXINE HCL XR 75 MG CAPXR PO SCH (09:04)
[2019-06-14] MEDS: GABAPENTIN 600 MG TAB PO SCH ×2 (09:04→20:17)
[2019-06-14] MEDS: PHENAZOPYRIDINE HCL 200 MG TAB PO SCH ×3 (09:05→20:23)
[2019-06-14] MEDS: INSULIN GLARGINE SOLOSTAR 100 UNITS/ML 3 ML PEN SC SCH ×2 (09:05→20:26)
[2019-06-14] MEDS: TORSEMIDE 20 MG TAB PO SCH (09:05)
[2019-06-14] MEDS: lamoTRIgine 100 MG TAB PO SCH (09:06)
[2019-06-14] MEDS: lamoTRIgine 25 MG TAB PO SCH ×2 (09:07→20:22)
[2019-06-14] MEDS: ASPIRIN 81 MG ECTAB PO SCH (09:07)
[2019-06-14] MEDS: SPIRONOLACTONE 25 MG TAB PO SCH ×2 (09:07→20:20)
[2019-06-14] MEDS: MONTELUKAST SODIUM 10 MG TABLET PO SCH (09:08)
[2019-06-14] MEDS: MoRPHine SULFATE CR 15 MG TABCR PO SCH ×2 (09:17→20:31)
[2019-06-14] MEDS: ERTAPENEM SODIUM 1,000 MG in SODIUM CHLORIDE 0.9% 50 ML IV SCH (10:04)
[2019-06-14] MEDS: ONDANSETRON INJ 2 MG/ML 2 ML VIAL IV PRN (11:19)
[2019-06-14] MEDS: clonazePAM 0.5 MG TAB PO PRN (15:50)
--- NOTE | 2019-06-14 16:07 | Hospitalist Progress Note ---
Date of Service June 14, 2019 Assessment & Plan (1) Urinary tract infection due to ESBL Klebsiella: Outpatient urine culture grew ESBL resistant to multiple oral abx repeat urine cx in the ER positive for Ecoli Continue IV abx with Ertapenem ID on board recommended to continue Ertapenem to complete a total of 7 days course Case discussed with case management to arrange for outpatient abx infusion as per case management, due to her insurance, pt does not qualify for home infusion abx As per case management, pt will approve for abx to be administered [facility] Case discussed with patient and family and will decide if they will be able to get transportation to come to [facility] for the [facility]x infusion If they cannot come with transportation, she will stay in the hospital to complete the abx course Will wait to place an u/s guided peripheral if decides to come to the [facility] for the [facility]x infusion Clinically stable (2) CAD (coronary artery disease): No chest pain or shortness of breath Continue ASA, statin, Imdur, metoprolol (3) Chronic diastolic CHF (congestive heart failure): Chronic diastolic CHF with known moderate Currently euvolemic Continue metoprolol, Aldactone Has not been taking Torsemide, Torsemide resumes today Monitor for sign of overload (4) Hypertension: Blood pressure controlled Continue metoprolol, Imdur, Aldactone (5) DM type 2 (diabetes mellitus, type 2): Most recent Hba1c 7 Outpatient regimen of metformin 1 g twice daily, Trulicity injection weekly She is prescribed Levemir 25 units in a.m. and 20 units in p.m. but has not been taking secondary to blood sugars being acceptable On Lantus/NovoLog per protocol hold metformin while inpatient (6) GONZALEZ (nonalcoholic steatohepatitis): Cirrhosis with portal hypertensive gastropathy No signs or symptoms of hepatic encephalopathy Euvolemic Continue Aldactone Continue lactulose as needed (7) Hypothyroidism: Continue levothyroxine (8) Portal hypertensive gastropathy: Continue omeprazole twice daily and famotidine (9) Gastroparesis: Continue PRN antiemetic (10) Hyponatremia: Sodium 133 today Continue monitor BPM (11) Uibhhwz-Uyyah-Rcrsi disease: Continue gabapentin She has bilateral lower extremity braces (12) Bipolar disorder: Continue Lamictal and Effexor (13) Anxiety: Takes clonazepam 0.5 mg twice daily as needed (14) Chronic pain syndrome: Continue morphine sulfate 50 mg every 12 hours, oxycodone 5 mg 3 times daily as needed Hyponatremia Na dropped 127 Continue BMP (15) DVT prophylaxis: SCD/TEDS for now Lovenox sub added Subjective Pt was seen and examined Lying in bed with no distress Pt said that she feels ok denies any chest pain, palpitation, dizziness and SOB Physical Exam Physical Exam: General- No acute distress Head- atraumatic Eyes- PERRL, EOMI, ENT- oropharynx clear Neck- supple, no JVD Lungs- clear to auscultation Heart- regular rhythm; +Systolic Outmurmur Abdomen- normal bowel sounds, soft, nontender Extremities- no calf tenderness Neuro- alert, oriented x 3; PERRL, EOMI; no facial palsy; no dysarthria Skin- warm & dry Results & Data Vital Signs (Past 12 Hours) Vital Signs Temp Pulse Pulse Resp BP Pulse Ox 06/14/19 15:11 67 06/14/19 15:10 36.8 C 76 19 132/77 91 06/14/19 13:21 56 L 06/14/19 11:23 36.7 C 53 L 16 116/64 94 06/14/19 07:22 36.6 C 53 L 16 109/70 96 06/14/19 06:46 36.6 C 54 L 17 112/75 95
[2019-06-14] MEDS: OXYCODONE HCL IR 5 MG TAB (IMMEDIATE RELEASE) PO PRN (19:26)
[2019-06-14] MEDS: ATORVASTATIN 40 MG TAB PO SCH (20:18)
[2019-06-14] MEDS: ENOXAPARIN INJ 40 MG/0.4 ML SYR SQ SCH (20:20)
[2019-06-14] MEDS: TRAZODONE HCL 50 MG TAB PO SCH (20:21)
[2019-06-14] MEDS: MAGNESIUM OXIDE 400 MG TAB PO SCH (20:23)
[2019-06-14] MEDS: ARIPIprazole 1 MG/ML ORAL SOLN 150 ML BTL PO SCH (20:23)
[2019-06-14] MEDS: FAMOTIDINE 40 MG TABLET PO SCH (20:23)
[2019-06-15] MEDS: LEVOTHYROXINE SODIUM 88 MCG TABLET PO SCH (06:26)
[2019-06-15 07:59] LABS: BUN Creatinine Ratio 13.2 (10-20); Calcium 9.2 mg/dl (8.5-10.1); Creatinine Clr Calc Pharmacy 64.6 ml/min; Est GFR (Non-African American) 56.1; Potassium 3.9 mmol/L (3.5-5.1)
[2019-06-15] MEDS: PANTOprazole 40 MG TAB PO SCH ×2 (07:59→20:42)
[2019-06-15] MEDS: ISOSORBIDE MONO EXTENDED REL 60 MG TABCR PO SCH (08:00)
[2019-06-15] MEDS: MONTELUKAST SODIUM 10 MG TABLET PO SCH (08:00)
[2019-06-15] MEDS: OXYBUTYNIN CHLORIDE XL 5 MG TABCR PO SCH (08:00)
[2019-06-15] MEDS: GABAPENTIN 600 MG TAB PO SCH ×2 (08:00→20:42)
[2019-06-15] MEDS: SPIRONOLACTONE 25 MG TAB PO SCH ×2 (08:01→20:36)
[2019-06-15] MEDS: ASPIRIN 81 MG ECTAB PO SCH (08:01)
[2019-06-15] MEDS: PHENAZOPYRIDINE HCL 200 MG TAB PO SCH ×3 (08:01→20:34)
[2019-06-15] MEDS: VENLAFAXINE HCL XR 150 MG CAPXR PO SCH (08:02)
[2019-06-15] MEDS: lamoTRIgine 25 MG TAB PO SCH ×2 (08:02→20:35)
[2019-06-15] MEDS: TORSEMIDE 20 MG TAB PO SCH (08:02)
[2019-06-15] MEDS: VENLAFAXINE HCL XR 75 MG CAPXR PO SCH (08:02)
[2019-06-15] MEDS: lamoTRIgine 100 MG TAB PO SCH (08:02)
[2019-06-15] MEDS: MoRPHine SULFATE CR 15 MG TABCR PO SCH ×2 (08:06→20:47)
[2019-06-15] MEDS: METOPROLOL SUCC 50MG EXT REL TAB PO SCH ×2 (08:07→17:22)
[2019-06-15] MEDS: INSULIN GLARGINE SOLOSTAR 100 UNITS/ML 3 ML PEN SC SCH ×2 (08:08→20:39)
[2019-06-15] MEDS: INSULIN ASPART 100 UNITS/ML 3 ML PEN SC SCH ×4 (08:09→20:47)
[2019-06-15] MEDS: ERTAPENEM SODIUM 1,000 MG in SODIUM CHLORIDE 0.9% 50 ML IV SCH (10:29)
[2019-06-15] MEDS: OXYCODONE HCL IR 5 MG TAB (IMMEDIATE RELEASE) PO PRN (11:07)
[2019-06-15] MEDS: LACTULOSE SYRUP 20 GM/30 ML UDC PO PRN (17:22)
--- NOTE | 2019-06-15 19:41 | Hospitalist Progress Note ---
Date of Service June 15, 2019 Assessment & Plan (1) Urinary tract infection due to ESBL Klebsiella: Outpatient urine culture grew ESBL resistant to multiple oral abx repeat urine cx in the ER positive for Ecoli Continue IV abx with Ertapenem ID on board recommended to continue Ertapenem to complete a total of 7 days course Case discussed with case management to arrange for outpatient abx infusion as per case management, due to her insurance, pt does not qualify for home infusion abx As per case management, pt will approve for abx to be administered [facility] Case discussed with patient and family and will decide if they will be able to get transportation to come to [facility] for the [facility]x infusion Unable to get transportation, she will stay in the hospital to complete the abx course Will complete 7 days course of IV Ertapenem on (06/17) Clinically stable (2) CAD (coronary artery disease): No chest pain or shortness of breath Continue ASA, statin, Imdur, metoprolol (3) Chronic diastolic CHF (congestive heart failure): Chronic diastolic CHF with known moderate Currently euvolemic Continue metoprolol, Aldactone Has not been taking Torsemide, Torsemide resumes today Monitor for sign of overload (4) Hypertension: Blood pressure controlled Continue metoprolol, Imdur, Aldactone (5) DM type 2 (diabetes mellitus, type 2): Most recent Hba1c 7 Outpatient regimen of metformin 1 g twice daily, Trulicity injection weekly She is prescribed Levemir 25 units in a.m. and 20 units in p.m. but has not been taking secondary to blood sugars being acceptable On Lantus/NovoLog per protocol hold metformin while inpatient (6) GONZALEZ (nonalcoholic steatohepatitis): Cirrhosis with portal hypertensive gastropathy No signs or symptoms of hepatic encephalopathy Euvolemic Continue Aldactone Continue lactulose as needed (7) Hypothyroidism: Continue levothyroxine (8) Portal hypertensive gastropathy: Continue omeprazole twice daily and famotidine (9) Gastroparesis: Continue PRN antiemetic (10) Hyponatremia: Na dropped to 127 Sodium 129 today Continue monitor BPM (11) Ngxstpz-Dtjjm-Wdcwx disease: Continue gabapentin She has bilateral lower extremity braces (12) Bipolar disorder: Continue Lamictal and Effexor (13) Anxiety: Takes clonazepam 0.5 mg twice daily as needed (14) Chronic pain syndrome: Continue morphine sulfate 50 mg every 12 hours, oxycodone 5 mg 3 times daily as needed (15) DVT prophylaxis: SCD/TEDS for now Lovenox sub added Subjective Pt was seen and examined. Lying in bed with no distress. She said that she had some dysuria today She said that she is staying to the hospital to complete abx course because he cannot get ride to bring her to [facility]x Denies any chest pain, palpitation, dizziness and SOB Physical Exam Physical Exam: General- No acute distress Head- atraumatic Eyes- PERRL, EOMI, ENT- oropharynx clear Neck- supple, no JVD Lungs- clear to auscultation Heart- regular rhythm; +Systolic murmur Abdomen- normal bowel sounds, soft, nontender Extremities- no calf tenderness Neuro- alert, oriented x 3; PERRL, EOMI; no facial palsy; no dysarthria Skin- warm & dry Results & Data Vital Signs (Past 12 Hours) Vital Signs Temp Pulse Pulse Resp BP BP Pulse Ox 06/15/19 19:02 36.8 C 59 L 18 124/71 92 06/15/19 16:44 83 114/68 06/15/19 15:32 36.2 C L 52 L 20 104/59 L 96 06/15/19 15:29 58 L 06/15/19 11:27 36.6 C 60 16 121/77 92 06/15/19 08:00 54 L
[2019-06-15] MEDS: FAMOTIDINE 40 MG TABLET PO SCH (20:34)
[2019-06-15] MEDS: MAGNESIUM OXIDE 400 MG TAB PO SCH (20:34)
[2019-06-15] MEDS: TRAZODONE HCL 50 MG TAB PO SCH (20:35)
[2019-06-15] MEDS: ENOXAPARIN INJ 40 MG/0.4 ML SYR SQ SCH (20:36)
[2019-06-15] MEDS: ARIPIprazole 1 MG/ML ORAL SOLN 150 ML BTL PO SCH (20:36)
[2019-06-15] MEDS: ATORVASTATIN 40 MG TAB PO SCH (20:42)
[2019-06-16] MEDS: LEVOTHYROXINE SODIUM 88 MCG TABLET PO SCH (06:06)
[2019-06-16 07:52] LABS: BUN Creatinine Ratio 11.2 (10-20); Calcium 8.9 mg/dl (8.5-10.1); Creatinine Clr Calc Pharmacy 56.8 ml/min; Est GFR (African American) 55.6; Potassium 3.6 mmol/L (3.5-5.1)
[2019-06-16] MEDS: ASPIRIN 81 MG ECTAB PO SCH (08:49)
[2019-06-16] MEDS: MONTELUKAST SODIUM 10 MG TABLET PO SCH (08:49)
[2019-06-16] MEDS: SPIRONOLACTONE 25 MG TAB PO SCH ×2 (08:49→20:08)
[2019-06-16] MEDS: PHENAZOPYRIDINE HCL 200 MG TAB PO SCH ×3 (08:49→20:10)
[2019-06-16] MEDS: TORSEMIDE 20 MG TAB PO SCH (08:50)
[2019-06-16] MEDS: LACTULOSE SYRUP 20 GM/30 ML UDC PO SCH (08:53)
[2019-06-16] MEDS: lamoTRIgine 100 MG TAB PO SCH (08:53)
[2019-06-16] MEDS: ISOSORBIDE MONO EXTENDED REL 60 MG TABCR PO SCH (08:53)
[2019-06-16] MEDS: lamoTRIgine 25 MG TAB PO SCH ×2 (08:54→20:09)
[2019-06-16] MEDS: INSULIN GLARGINE SOLOSTAR 100 UNITS/ML 3 ML PEN SC SCH ×2 (08:54→21:04)
[2019-06-16] MEDS: INSULIN ASPART 100 UNITS/ML 3 ML PEN SC SCH ×4 (08:55→21:05)
[2019-06-16] MEDS: ERTAPENEM SODIUM 1,000 MG in SODIUM CHLORIDE 0.9% 50 ML IV SCH (08:58)
--- NOTE | 2019-06-16 09:43 | Hospitalist Progress Note ---
Date of Service June 16, 2019 Assessment & Plan (1) Urinary tract infection due to ESBL Klebsiella: Outpatient urine culture grew ESBL resistant to multiple oral abx repeat urine cx in the ER positive for Ecoli Continue IV abx with Ertapenem ID on board recommended to continue Ertapenem to complete a total of 7 days course-Today is 12/11 as per case management, due to her insurance, pt does not qualify for home infusion abx Unable to get transportation, she will stay in the hospital to complete the abx course Will complete 7 days course of IV Ertapenem on (06/17) Clinically stable (2) CAD (coronary artery disease): No chest pain or shortness of breath Continue ASA, statin, Imdur, metoprolol (3) Chronic diastolic CHF (congestive heart failure): Chronic diastolic CHF with known moderate Currently euvolemic Continue metoprolol, Aldactone Has not been taking Torsemide, Torsemide resumed Monitor for sign of overload (4) Hypertension: Blood pressure controlled Continue metoprolol, Imdur, Aldactone (5) DM type 2 (diabetes mellitus, type 2): Most recent Hba1c 7 Outpatient regimen of metformin 1 g twice daily, Trulicity injection weekly She is prescribed Levemir 25 units in a.m. and 20 units in p.m. but has not been taking secondary to blood sugars being acceptable On Lantus/NovoLog per protocol hold metformin while inpatient (6) GONZALEZ (nonalcoholic steatohepatitis): Cirrhosis with portal hypertensive gastropathy No signs or symptoms of hepatic encephalopathy Euvolemic Continue Aldactone Continue lactulose as needed (7) Hypothyroidism: Continue levothyroxine (8) Portal hypertensive gastropathy: Continue omeprazole twice daily and famotidine (9) Gastroparesis: Continue PRN antiemetic (10) Hyponatremia: Continue monitor BPM (11) Mrfieie-Kqqfo-Dlutx disease: Continue gabapentin She has bilateral lower extremity braces (12) Bipolar disorder: Continue Lamictal and Effexor (13) Anxiety: Takes clonazepam 0.5 mg twice daily as needed (14) Chronic pain syndrome: Continue morphine sulfate 50 mg every 12 hours, oxycodone 5 mg 3 times daily as needed (15) DVT prophylaxis: SCD/TEDS for now Lovenox sub added labs checked ROS-No Headache, No Visual Changes, No Nausea, No Vomiting, No Fever, No Chills, No Neck Pain or Stiffness, No Chest Pain, No Palpitations, No SOB, No [place], No Cough, No Sputum, No Wheezing, No Abdominal Pain, No Diarrhea, No Hematemesis, No Hemoptysis, No Unexpected Weight Loss, No Flank pain, No Melena, No Hematochezia, No Frequency, No Urgency, No Burning, No Hematuria, No Rashes, No Diaphoresis. Appetite is Normal Physical Exam Gen-AAO x 3, NAD, Afebrile, obese Head-NCAT, EOMI, PERRLA, Anicteric Sclera, No Posterior Pharyngeal Erythema Neck-Supple, No JVD, No Thyromegaly, No Masses, No LAD, No Bruits Lungs-Clear to Auscultation Bilaterally, No Rales, No Rhonchi, No Wheezing, No Crepitus Chest-No S4, +S1, +S2, No S3, No Murmurs, No Rubs, No Gallops, No Ectopy Abdomen-Soft, Bowel Sounds Present, Non Tender, Non Distended, No Hepatomegaly, No Splenomegaly, No Palpable Masses, No Rebound, No Rigidity, No Guarding Musculoskeletal-Full Range of Motion Bilaterally, No CVAT Extremities-No Cyanosis, No Clubbing, No Edema Nuero-Cranial Nerves II-XII grossly intact, Motor WNL, DTRs WNL, Strength WNL, Non Focal Psych-Normal Mood Results & Data Vital Signs (Past 12 Hours) Vital Signs Temp Pulse Pulse Resp BP Pulse Ox 06/16/19 07:21 36.3 C L 55 L 20 104/59 L 93 06/16/19 07:15 57 L 06/16/19 03:08 36.3 C L 57 L 19 112/63 92 06/16/19 00:31 56 L 06/15/19 23:08 36.8 C 56 L 19 120/74 91
[2019-06-16] MEDS: MoRPHine SULFATE CR 15 MG TABCR PO SCH ×2 (10:12→20:17)
[2019-06-16] MEDS: METOPROLOL SUCC 50MG EXT REL TAB PO SCH ×2 (10:20→16:15)
[2019-06-16] MEDS: VENLAFAXINE HCL XR 150 MG CAPXR PO SCH (10:20)
[2019-06-16] MEDS: OXYBUTYNIN CHLORIDE XL 5 MG TABCR PO SCH (10:20)
[2019-06-16] MEDS: GABAPENTIN 600 MG TAB PO SCH ×2 (10:21→20:09)
[2019-06-16] MEDS: PANTOprazole 40 MG TAB PO SCH ×2 (10:21→20:10)
[2019-06-16] MEDS: VENLAFAXINE HCL XR 75 MG CAPXR PO SCH (12:14)
[2019-06-16] MEDS: ACETAMINOPHEN 325 MG TAB PO PRN (16:12)
[2019-06-16] MEDS: ARIPIprazole 1 MG/ML ORAL SOLN 150 ML BTL PO SCH (20:07)
[2019-06-16] MEDS: ENOXAPARIN INJ 40 MG/0.4 ML SYR SQ SCH (20:07)
[2019-06-16] MEDS: TRAZODONE HCL 50 MG TAB PO SCH (20:07)
[2019-06-16] MEDS: ATORVASTATIN 40 MG TAB PO SCH (20:09)
[2019-06-16] MEDS: MAGNESIUM OXIDE 400 MG TAB PO SCH (20:09)
[2019-06-16] MEDS: FAMOTIDINE 40 MG TABLET PO SCH (20:10)
[2019-06-17] MEDS: LEVOTHYROXINE SODIUM 88 MCG TABLET PO SCH ×2 (06:18→06:27)
[2019-06-17] MEDS: INSULIN ASPART 100 UNITS/ML 3 ML PEN SC SCH ×2 (08:16→12:16)
[2019-06-17] MEDS: MONTELUKAST SODIUM 10 MG TABLET PO SCH (08:17)
[2019-06-17] MEDS: lamoTRIgine 25 MG TAB PO SCH (08:17)
[2019-06-17] MEDS: VENLAFAXINE HCL XR 150 MG CAPXR PO SCH (08:18)
[2019-06-17] MEDS: SPIRONOLACTONE 25 MG TAB PO SCH (08:18)
[2019-06-17] MEDS: PHENAZOPYRIDINE HCL 200 MG TAB PO SCH (08:18)
[2019-06-17] MEDS: VENLAFAXINE HCL XR 75 MG CAPXR PO SCH (08:19)
[2019-06-17] MEDS: GABAPENTIN 600 MG TAB PO SCH (08:19)
[2019-06-17] MEDS: METOPROLOL SUCC 50MG EXT REL TAB PO SCH (08:20)
[2019-06-17] MEDS: TORSEMIDE 20 MG TAB PO SCH (08:20)
[2019-06-17] MEDS: LACTULOSE SYRUP 20 GM/30 ML UDC PO SCH (08:20)
[2019-06-17] MEDS: ISOSORBIDE MONO EXTENDED REL 60 MG TABCR PO SCH (08:20)
[2019-06-17] MEDS: OXYBUTYNIN CHLORIDE XL 5 MG TABCR PO SCH (08:21)
[2019-06-17] MEDS: PANTOprazole 40 MG TAB PO SCH (08:21)
[2019-06-17] MEDS: INSULIN GLARGINE SOLOSTAR 100 UNITS/ML 3 ML PEN SC SCH (08:21)
[2019-06-17] MEDS: ASPIRIN 81 MG ECTAB PO SCH (08:21)
[2019-06-17] MEDS: lamoTRIgine 100 MG TAB PO SCH (08:21)
[2019-06-17] MEDS: MoRPHine SULFATE CR 15 MG TABCR PO SCH (08:26)
--- NOTE | 2019-06-17 08:26 | Discharge Summary ---
Date of Service June 17, 2019 Admission HPI Per Admitting Provider This is a 68-year-old female who has significant past medical history of CAD with history of CABG x1 and multiple stents, T2DM, HTN, HLD, cirrhosis secondary to [place], diabetic gastroparesis, Charcot Rashmi tooth, neuropathy, chronic diastolic CHF, moderate left ear, GERD, portal hypertension gastropathy, thrombocytopenia, bipolar, anxiety, chronic pain syndrome secondary to back pain who presents to [facility] ED secondary to abnormal urine culture as outpatient. Since April patient has had recurrent urinary tract infections. Initial urine culture April 10 grew greater than 100,000 Proteus mirabilis. Subsequent urine cultures grew greater than 100,000 E. coli. Most recent urine culture done on 06/07/2019 revealed ESBL E. coli resistant to multiple oral antibiotics. She has been on 4 prior antibiotics including Bactrim, Macrobid, Keflex and most recently Augmentin. Symptoms would improve but would subsequently return after completion of antibiotic course. She finished Augmentin approximately 1 week ago. Over the past 5 days she has developed increased urinary urgency, incontinence, increased urine frequency, dysuria, low-grade elevated temperature 99 4 and suprapubic abdominal discomfort. She denies documented fever, chills, sweats, lightheadedness, dizziness, syncope, chest pain, palpitations, shortness of breath, cough, hemoptysis, emesis, abdominal pain. She does have chronic nausea secondary to diabetic gastroparesis. She also moves bowels 2-3 times a day. She does not take her lactulose because of this, but when she does not move her bowels more than twice daily she takes it. Patient takes multiple medications and she did discuss this. She does not feel it is much of a burden because she splits medications up 3 times daily. She did elicit that she has not been taking her insulin or her torsemide recently. In ED patient had repeat urinalysis which appears consistent with UTI. Remains hemodynamically stable in ED. she is afebrile and WBC 7.37, sodium 131, BUN 9, creatinine 0.95, glucose 184. She had a renal ultrasound is otherwise unremarkable. Based on urine culture performed outpatient she was started on IV ertapenem empirically. Reviewed outpt records in [facility] and discussed case with ED provider. Admission Exam Per Admitting Provider Constitutional: WD/WN, vitals as above, NAD, sitting up in bed, pleasant, conversing easily Head: Normocephalic, Atraumatic Eyes: PERRL, conjunctivae normal, anicteric sclerae ENMT: external ear and nose normal, oropharynx normal Neck: trachea midline, no thyromegaly normal visual inspection Respiratory: normal respiratory effort, lungs clear to auscultation, no wheeze, rales, rhonchi. Normal insp/exp effort, no accessory muscle use Cardiovascular: RRR, 2/6 systolic ejection murmur noted RUSB, no edema Vessels: no JVD or carotid bruit Chest: normal inspection of chest Abdomen: Obese abdomen, normal bowel sounds, soft, nontender, no hepatosplenomegaly Musculoskeletal: no cyanosis or clubbing, extremities motor strength 5/5, bilateral lower extremity with braces intact secondary to CMT Skin: no rashes, warm and dry normal turgor Neurologic: PERRL, EOMI, accommodation nl, no face palsy, no dysarthria CN's II-XI intact bilaterally and moves all extremities Psychiatric: A+Ox3, euthymic affect Lymphatic: no cervical or axillary lymphadenopathy : deferred Principal Diagnosis ESBL UTI Chronic Pain CAD DM HTN HLD Aortic Stenosis ESPANA Jaitahc-Pmwlw-Ozoqj Bipolar Anxiety Portal HTN Gastropathy Hypothyroid Chronic Diastolic CHF Gastroparesis Discharge Exam ROS-No Headache, No Visual Changes, No Nausea, No Vomiting, No Fever, No Chills, No Neck Pain or Stiffness, No Chest Pain, No Palpitations, No SOB, No [place], No Cough, No Sputum, No Wheezing, No Abdominal Pain, No Diarrhea, No Hematemesis, No Hemoptysis, No Unexpected Weight Loss, No Flank pain, No Melena, No Hematochezia, No Frequency, No Urgency, No Burning, No Hematuria, No Rashes, No Diaphoresis. Appetite is Normal Physical Exam Gen-AAO x 3, NAD, Afebrile Head-NCAT, EOMI, PERRLA, Anicteric Sclera, No Posterior Pharyngeal Erythema Neck-Supple, No JVD, No Thyromegaly, No Masses, No LAD, No Bruits Lungs-Clear to Auscultation Bilaterally, No Rales, No Rhonchi, No Wheezing, No Crepitus Chest-No S4, +S1, +S2, No S3, No Murmurs, No Rubs, No Gallops, No Ectopy Abdomen-Soft, Bowel Sounds Present, Non Tender, Non Distended, No Hepatomegaly, No Splenomegaly, No Palpable Masses, No Rebound, No Rigidity, No Guarding Musculoskeletal-Full Range of Motion Bilaterally, No CVAT Extremities-No Cyanosis, No Clubbing, No Edema Nuero-Cranial Nerves II-XII grossly intact, Motor WNL, DTRs WNL, Strength WNL, Non Focal Psych-Normal Mood Discharge Data Allergies Allergy/AdvReac Type Severity Reaction Status Date / Time propoxyphene Allergy Mild Rash Verified 11/27/18 09:14 fentanyl Allergy Unknown PANIC Verified 11/27/18 09:14 WANTS TO RUN AND AGGRESSIVE zolpidem AdvReac Intermediate confusion Verified 11/27/18 09:14 methocarbamol AdvReac Mild DELERIUM Verified 11/27/18 09:14 Consultations 06/11/19 14:29 ED Decision to Admit Stat 06/11/19 15:15 Consult Infectious Diseases Routine 06/11/19 17:42 Consult Case Management - Discharge Planning Routine 06/12/19 14:39 Consult Case Management - Discharge Planning Routine Current Diagnoses Other specified bacterial agents as the cause of diseases classified elsewhere (06/11/19) Hypothyroidism, unspecified (06/11/19) Type 2 diabetes mellitus without complications (06/11/19) Hypo-osmolality and hyponatremia (06/11/19) Bipolar disorder, unspecified (06/11/19) Anxiety disorder, unspecified (06/11/19) Hereditary motor and sensory neuropathy (06/11/19) Chronic pain syndrome (06/11/19) Essential (primary) hypertension (06/11/19) Atherosclerotic heart disease of [place] coronary artery without angina pectoris (06/11/19) Chronic diastolic (congestive) heart failure (06/11/19) Gastroparesis (06/11/19) Other diseases of stomach and duodenum (06/11/19) Nonalcoholic steatohepatitis (ESPANA) (06/11/19) Portal hypertension (06/11/19) Urinary tract infection, site not specified (06/11/19) Encounter for prophylactic measures, unspecified (06/11/19) Allergies propoxyphene Allergy (Mild, Verified 11/27/18 09:14) Rash fentanyl Allergy (Unknown, Verified 05/24/19 09:14) PANIC WANTS TO RUN AND AGGRESSIVE zolpidem Adverse Reaction (Intermediate, Verified 11/27/18 09:14) confusion methocarbamol Adverse Reaction (Mild, Verified 11/27/18 09:14) DELERIUM Height/Weight/Isolation Height 5 ft 8 in Weight 87.4 kg Isolation Type Contact Precautions Chemistry 06/16/19 07:07 Sodium 129 L Potassium 3.6 Chloride 89 L Carbon Dioxide 34 H Anion Gap 5.0 BUN 13 Creatinine 1.16 Glucose 150 H Ordered Studies 06/11/19 14:19 US renal/blad retro comp Stat Hospital Course (1) Urinary tract infection due to ESBL Klebsiella: Outpatient urine culture grew ESBL resistant to multiple oral abx repeat urine cx in the ER positive for Ecoli Ertapenem x 7 days, Last dose 06/17 (2) CAD (coronary artery disease): No chest pain or shortness of breath Continue ASA, statin, Imdur, metoprolol (3) Chronic diastolic CHF (congestive heart failure): Chronic diastolic CHF with known moderate Currently euvolemic Continue metoprolol, Aldactone Has not been taking Torsemide, Torsemide resumed (4) Hypertension: Blood pressure controlled Continue metoprolol, Imdur, Aldactone (5) DM type 2 (diabetes mellitus, type 2): Most recent Hba1c 7 Outpatient regimen of metformin 1 g twice daily, Trulicity injection weekly She is prescribed Levemir 25 units in a.m. and 20 units in p.m. but has not been taking secondary to blood sugars being acceptable On Lantus/NovoLog per protocol (6) ESPANA (nonalcoholic steatohepatitis): Cirrhosis with portal hypertensive gastropathy No signs or symptoms of hepatic encephalopathy Euvolemic Continue Aldactone Continue lactulose as needed (7) Hypothyroidism: Continue levothyroxine (8) Portal hypertensive gastropathy: Continue omeprazole twice daily and famotidine (9) Gastroparesis: Continue PRN antiemetic (10) Hyponatremia: Continue monitor BPM (11) Peqvjyk-Fhgai-Vnjah disease: Continue gabapentin She has bilateral lower extremity braces (12) Bipolar disorder: Continue Lamictal and Effexor (13) Anxiety: Takes clonazepam 0.5 mg twice daily as needed (14) Chronic pain syndrome: Continue morphine sulfate 50 mg every 12 hours, oxycodone 5 mg 3 times daily as needed (15) DVT prophylaxis: SCD/TEDS for now Lovenox sub added Total Time Total Time Spent Total Time Spent (In Minutes): 40 mins Total Time Includes: Examination of the Patient, Discharge Planning, Medication Reconciliation and Communication With Other Providers Discharge Plan Discharge Items Patient Disposition: Home - Self-Care Reason For Visit: ESBL UTI Discharge Diagnosis: ESBL UTI Chronic Pain CAD DM HTN HLD Aortic Stenosis ESPANA Pyxfesv-Bmopg-Xrzqw Bipolar Anxiety Portal HTN Gastropathy Hypothyroid Chronic Diastolic CHF Gastroparesis Condition on Discharge: Good Activity: Resume your previous activity Lifting: None Bathing: No limitations Sexual Activity: When tolerated Exercise/Sports: None Driving/Machine Use: No limitations Weightbearing: Full weightbearing Non-emergency contact: Primary Care Provider Call non-emergency contact if: you have any medication questions Follow-up/Referrals: Brian Domínguez MD [Primary Care Provider] - Diet: Carb Consistent or DM2 and Heart Healthy Addtl Attending Provider Instructions: None Pending Studies at Discharge: No Stand-Alone Forms: My [employer], Smoking Cessation Medications and DC Order Prescriptions: Continued metformin 500 mg tablet 1,000 mg PO BID RF: 0 atorvastatin 80 mg tablet 80 mg PO HS RF: 0 venlafaxine 75 mg capsule,extended release 24hr 75 mg PO QAM RF: 0 gabapentin 600 mg tablet 600 mg PO BID RF: 0 metoprolol succinate 50 mg tablet extended release 24 hr 50 mg PO BIDM RF: 0 ondansetron HCl 8 mg tablet 8 mg PO Q8H PRN (Reason: Nausea) RF: 0 famotidine 40 mg tablet 40 mg PO HS RF: 0 clonazepam 0.5 mg tablet 0.5 mg PO BID PRN (Reason: Anxiety) RF: 0 venlafaxine 150 mg capsule,extended release 24hr 150 mg PO QAM RF: 0 lamotrigine 25 mg tablet 25 mg PO QAM RF: 0 lamotrigine 25 mg tablet 50 mg PO HS RF: 0 levothyroxine 88 mcg tablet 88 mcg PO QAM RF: 0 trazodone 150 mg tablet 150 mg PO HS RF: 0 omeprazole 20 mg capsule,delayed release(DR/EC) 20 mg PO BID RF: 0 dicyclomine 10 mg capsule 10 mg PO QID PRN (Reason: Abdominal Pain) RF: 0 lamotrigine 100 mg tablet 100 mg PO QAM RF: 0 oxycodone 5 mg tablet 5 - 10 mg PO TID MDD 20mg PRN (Reason: Pain) RF: 0 aripiprazole 2 mg tablet 2 mg PO HS RF: 0 insulin detemir U-100 100 unit/mL (3 mL) insulin pen 25 units subcut QAM RF: 0 insulin detemir U-100 100 unit/mL (3 mL) insulin pen 20 units subcut HS RF: 0 dulaglutide 0.75 mg/0.5 mL pen injector 0.5 ml subcut WK RF: 0 benzonatate 100 mg Capsule 100 mg PO TID PRN (Reason: Cough) RF: 0 nitroglycerin [Nitrostat] 0.4 mg Tablet, Sublingual 0.4 mg Sublingual DIRECTED PRN (Reason: Chest Pain) RF: 0 ergocalciferol (vitamin D2) 50,000 unit Capsule 50,000 units PO WK RF: 0 albuterol sulfate [Ventolin HFA] 90 mcg/actuation Hfa Aerosol Inhaler 2 puff INHALATION QID PRN (Reason: Shortness Of Breath Or Wheezing) RF: 0 lactulose 10 gram/15 mL (15 mL) Solution 30 ml PO DAILY PRN (Reason: confusion) RF: 0 magnesium oxide 400 mg Capsule 400 mg PO HS RF: 0 morphine 15 mg Tablet,Oral Only,Ext.Rel.12 Hr 15 mg PO Q12H RF: 0 aspirin 81 mg Tablet,Delayed Release (Dr/Ec) 81 mg PO QAM RF: 0 isosorbide mononitrate 60 mg tablet extended release 24 hr 60 mg PO QAM RF: 0 torsemide 20 mg tablet 20 mg PO QAM RF: 0 spironolactone 100 mg tablet 50 mg PO BID RF: 0 oxybutynin chloride 10 mg Tablet Extended Release 24hr 10 mg PO DAILY RF: 0 montelukast 10 mg Tablet 10 mg PO DAILY RF: 0 Discharge Orders: Discharge Order (Routine); Ordered 06/17/19 Ordered By: Terrence Doshi/Other Patient Handouts: Hyperglycemia, Hypoglycemia, Diabetes Type 2 Coping, Diabetes Healthy Meals Admission Data Admit Date/Time: 06/11/19 15:15 Attending Provider: Terrence Foster Admit Provider: Cristiane Mo Primary Care Provider: Brian Domínguez Other Providers: Cristiane Mo ; Andie Tran
[2019-06-17] MEDS: ERTAPENEM SODIUM 1,000 MG in SODIUM CHLORIDE 0.9% 50 ML IV SCH (08:34)
[2019-06-17 09:46] LABS: Basophils # (auto) 0.02 K/uL (0-0.2); Basophils % (auto) 0.4 %; Hemoglobin 10.9 g/dL (12.0-16.0); Immature Granulocytes # (auto) 0.03 K/uL (0.00-0.02); Immature Granulocytes % (auto) 0.6 %; Lymphocytes # (auto) 1.34 K/uL (1.2-3.4); Lymphocytes % (auto) 26.8 %; Mean Corpuscular Hemoglobin 25.8 pg (25-34); Mean Corpuscular Volume 78.2 fL (80-100); Mean Platelet Volume 9.7 fL (7.4-10.4); Monocytes # (auto) 0.36 K/uL (0.11-0.59); Monocytes % (auto) 7.2 %; Neutrophils # (auto) 3.05 K/uL (1.4-6.5); Platelet Count 138 K/uL (130-400); RDW Coefficient of Variation 17.1 % (11.5-14.5); RDW Standard Deviation 48.3 fL (36.4-46.3); Red Blood Count 4.22 M/uL (4.2-5.4)
[2019-06-17 09:48] LABS: BUN Creatinine Ratio 15.6 (10-20); Calcium 9.4 mg/dl (8.5-10.1); Creatinine Clr Calc Pharmacy 59.6 ml/min; Est GFR (African American) 64.2; Est GFR (Non-African American) 55.4; Potassium 3.9 mmol/L (3.5-5.1)
[2019-06-17] MEDS: clonazePAM 0.5 MG TAB PO PRN (11:29)
== END 2019-06-17 13:37 | disposition home or self-care (01) | DRG 690 ==
LOC: ED 12:55 → SUATTDRO 15:15 → 2W 15:15

== ENCOUNTER 2019-08-20 14:10 | Inpatient (IN) ==
[2019-08-20] MEDS ORDERED: SODIUM CHLORIDE 0.9% 1000ML 500 ML IV ONE (15:00)
--- NOTE | 2019-08-20 15:17 | XRay Report ---
XR chest 1V portable CLINICAL HISTORY: fever COMPARISON STUDY: No previous studies for comparison. FINDINGS: There are postsurgical changes of midline sternotomy. The heart is normal in size. There is no failure. There is no lobar consolidation. There are no pleural effusions. An opacity at the left lung base, likely represents summation with the left fifth costochondral junction.[ IMPRESSION: No active disease in the chest. ACT 112: Negative or not required by law. Electronically signed by: Devang Wood M.D. 08/20/2019 3:15 PM
[2019-08-20 15:39] LABS: Appearance Urine Cloudy (Clear); Bacteria Urine Automated 2+ (Negative); Bilirubin Urine Negative (Negative); Blood Urine Trace (Negative); Color Urine Yellow; Glucose Urine UA Negative (Negative); Ketones Urine Negative (Negative); Leukocyte Esterase Urine 3+ (Negative); Nitrite Urine Positive (Negative); Protein Urine Negative (Negative); RBC Urine Automated 0-4 /hpf (0-4); Specific Gravity Urine 1.006 (1.000-1.030); Urobilinogen Urine Negative (Negative); WBC Urine Automated >30 /hpf (0-5)
[2019-08-20 15:52] LABS: Basophils # (auto) 0.01 K/uL (0-0.2); Basophils % (auto) 0.1 %; Eosinophils # (auto) 0.19 K/uL (0-0.5); Eosinophils % (auto) 2.6 %; Hematocrit (blood only) 36.1 % (37-47); Hemoglobin 11.9 g/dL (12.0-16.0); Immature Granulocytes # (auto) 0.02 K/uL (0.00-0.02); Immature Granulocytes % (auto) 0.3 %; Lymphocytes # (auto) 1.53 K/uL (1.2-3.4); Lymphocytes % (auto) 21.1 %; Mean Corpuscular Hemoglobin 24.9 pg (25-34); Mean Corpuscular Volume 75.7 fL (80-100); Mean Platelet Volume 9.7 fL (7.4-10.4); Monocytes # (auto) 0.59 K/uL (0.11-0.59); Monocytes % (auto) 8.1 %; Neutrophils % (auto) 67.8 %; Platelet Count 107 K/uL (130-400); RDW Coefficient of Variation 16.5 % (11.5-14.5); RDW Standard Deviation 45.5 fL (36.4-46.3); Red Blood Count 4.77 M/uL (4.2-5.4); White Blood Count 7.24 K/uL (4.8-10.8)
[2019-08-20 16:02] LABS: INR 1.1 (0.9-1.1)
[2019-08-20 16:10] LABS: Alanine Aminotransferase 19 U/L (12-78); Albumin Level 3.4 gm/dl (3.4-5.0); Aspartate Aminotransferase 21 U/L (15-37); BUN Creatinine Ratio 11.7 (10-20); Blood Urea Nitrogen 12 mg/dl (7-18); Carbon Dioxide 28 mmol/L (21-32); Chloride 98 mmol/L (98-107); Creatinine Clr Calc Pharmacy 66.1 ml/min; Est GFR (African American) 67.7; Est GFR (Non-African American) 58.4; Glucose 167 mg/dl (70-99); Lipase 85 U/L (73-393); Potassium 4.1 mmol/L (3.5-5.1); Sodium 132 mmol/L (136-145)
[2019-08-20] MEDS ORDERED: ERTAPENEM SODIUM 10 ML IV STA (16:10)
[2019-08-20 16:16] LABS: Influenza A virus by PCR Neg for Influ A (Neg); Influenza B virus by PCR Neg for Influ B (Neg)
[2019-08-20 16:20] LABS: Alkaline Phosphatase 132 U/L (45-117); Bilirubin,Total 0.8 mg/dl (0.2-1); Globulin 3.3 gm/dl (2.5-4.0); Total Protein 6.7 gm/dl (6.4-8.2); Troponin I < 0.015 ng/ml (0-0.045)
[2019-08-20] MEDS ORDERED: IOVERSOL 100ml IV PRN (16:50)
--- NOTE | 2019-08-20 16:59 | CT Scan Report ---
CT head/brain wo con CLINICAL HISTORY: confusion COMPARISON STUDY: 02/02/2017 TECHNIQUE: Axial CT of the brain is performed from the vertex to the skull base. IV contrast was not administered for this examination. A dose lowering technique was utilized adhering to the principles of ALARA. CT DOSE: 537.48 mGy.cm FINDINGS: No intra or extra-axial mass lesions are visualized. There is no CT evidence of acute cortical infarc tion. There is no evidence of midline shift. There is no acute hemorrhage. No calvarial fractures ar e visualized. There are minor white matter hypodensities likely on a small vessel basis. There is no evidence of pathologic ventricular dilatation. There is no evidence of acute sinusitis. There are persistent extensive calcifications involving the distal left vertebral artery IMPRESSION: No acute intracranial findings ACT 112: Negative or not required by law. Electronically signed by: Devang Wood M.D. 08/20/2019 4:58 PM
--- NOTE | 2019-08-20 17:11 | CT Scan Report ---
CT abd pelvis IV con only CLINICAL HISTORY: pain, fever COMPARISON STUDY: November 2017, January 2017. TECHNIQUE: The patient was scanned in a dynamic helical fashion during intravenous administration of 93 cc of Optiray 320. A dose lowering technique was utilized adhering to the principles of ALARA. CT DOSE: 1482.97 mGy.cm FINDINGS: Lower chest: There are coronary artery calcifications present. There are mild dependent atelectatic c hanges. There are no significant pleural effusions. Liver: There is mild intrahepatic biliary ductal dilatation, likely related to a prior cholecystectom y. No focal hepatic masses are visualized. The portal and hepatic veins appear patent. Gallbladder: Surgically absent Spleen: The spleen is mildly enlarged measuring 13.9 cm. This remain stable. Pancreas: Unremarkable. Adrenal glands: Unremarkable. Kidneys: There is mild right-sided perinephric edema and mild right-sided periureteral edema. No uret eral calculi are visualized. There is minimal fullness the right renal collecting system. There is urrutia btle uroepithelial enhancement. Correlate clinically for evidence of a passed calculus or urinary tra ct infection. Bowel: There are no transition zone to indicate bowel obstruction. By history the appendix is surgica lly absent. There is no acute diverticulitis. Peritoneum: There is no intraperitoneal free air or abdominal ascites. Vasculature: The abdominal aorta is normal in course and caliber. Adenopathy: None. Pelvic viscera: The uterus is surgically absent. There is a droplet of air within the bladder likely iatrogenic. Skeletal structures: There are moderately advanced multilevel degenerative changes within the cervica l spine. IMPRESSION: 1. No evidence of bowel obstruction. No evidence of free air 2. Mild splenomegaly 3. Surgically absent appendix, uterus, and gallbladder 4. Droplet of air within the bladder likely iatrogenic 5. Mild right-sided perinephric edema, and mild right-sided periureteral edema with subtle uroepithel ial enhancement. Likely diagnostic considerations include ascending urinary tract infection, versus p assed calculus. Correlation with clinical findings and urinalysis is recommended. ACT 112: Negative or not required by law. Electronically signed by: Devang Wood M.D. 08/20/2019 5:10 PM
--- NOTE | 2019-08-20 18:12 | History & Physical Report ---
Date of Service August 20, 2019 Assessment & Plan (1) Pyelonephritis: (2) Acute UTI: (3) Weakness: (4) Flank pain: (5) Hyponatremia: (6) Mudicbg-Cjlwi-Wxesq disease: (7) Gastroparesis: (8) DM type 2 (diabetes mellitus, type 2): (9) CAD (coronary artery disease): (10) Dyslipidemia: (11) Hypothyroidism: (12) DVT prophylaxis: Invanz, Cultures pending, IVFs, continue OP Meds, Straight cath PRN, SSI, CC diet, Full code. History of Present Illness 69 yo female c PMH below comes in with 1-2 weeks of confusion and weakness. She has frequent bouts of UTIs, 3-4 times per year. Daughter very frustrated with bounce back between [facility] at home and PCP office. Not sure who to call etc. Today she was found to have a UTI and R Pyelo. Mult bouts of ESBL in the past. Dtr was told that her mom needs IV abx whenever she gets UTIs. Patient lives alone, but Dtr close by. She doesn't eat or drink as much as she should. CT Revealed mild right-sided perinephric edema, and mild right-sided periureteral edema with subtle uroepithelial enhancement. Likely diagnostic considerations include ascending urinary tract infection, versus passed calculus. Correlation with clinical findings and urinalysis is recommended. Primary Care Provider: Brian Domínguez MD Allergies Allergy/AdvReac Type Severity Reaction Status Date / Time propoxyphene Allergy Mild Rash Verified 08/20/19 15:07 fentanyl Allergy Unknown PANIC Verified 08/20/19 15:07 WANTS TO RUN AND AGGRESSIVE zolpidem AdvReac Intermediate confusion Verified 08/20/19 15:07 methocarbamol AdvReac Mild DELERIUM Verified 08/20/19 15:07 Home Medications Home Medications Medication Instructions Recorded Confirmed Type albuterol sulfate [Ventolin HFA] 2 puff INHALATION QID PRN 04/27/18 08/20/19 History aripiprazole 2 mg PO HS 04/27/18 08/20/19 History atorvastatin 80 mg PO HS 04/27/18 08/20/19 History benzonatate 100 mg PO TID PRN 04/27/18 08/20/19 History clonazepam 0.5 mg PO BID PRN 04/27/18 08/20/19 History dicyclomine 10 mg PO QID PRN 04/27/18 08/20/19 History dulaglutide 0.5 ml SUBCUT WK 04/27/18 08/20/19 History ergocalciferol (vitamin D2) 50,000 units PO WK 04/27/18 08/20/19 History famotidine 40 mg PO HS 04/27/18 08/20/19 History gabapentin 600 mg PO BID 04/27/18 08/20/19 History insulin detemir U-100 20 units SUBCUT HS 04/27/18 08/20/19 History insulin detemir U-100 25 units SUBCUT QAM 04/27/18 08/20/19 History lactulose 30 ml PO BID PRN 04/27/18 08/20/19 History lamotrigine 25 mg PO QAM 04/27/18 08/20/19 History lamotrigine 50 mg PO HS 04/27/18 08/20/19 History lamotrigine 100 mg PO QAM 04/27/18 08/20/19 History levothyroxine 88 mcg PO QAM 04/27/18 08/20/19 History magnesium oxide 400 mg PO HS 04/27/18 08/20/19 History metformin 1,000 mg PO BID 04/27/18 08/20/19 History metoprolol succinate 50 mg PO BID 04/27/18 08/20/19 History nitroglycerin [Nitrostat] 0.4 mg SUBLINGUAL DIRECTED PRN 04/27/18 08/20/19 History omeprazole 20 mg PO BID 04/27/18 08/20/19 History ondansetron HCl 8 mg PO Q8H PRN 04/27/18 08/20/19 History oxycodone 5 - 10 mg PO TID PRN MDD 20mg 04/27/18 08/20/19 History trazodone 150 mg PO HS 04/27/18 08/20/19 History venlafaxine 150 mg PO QAM 04/27/18 08/20/19 History isosorbide mononitrate 60 mg PO QAM 09/03/18 08/20/19 History spironolactone 50 mg PO BID 09/03/18 08/20/19 History torsemide 20 mg PO QAM 09/03/18 08/20/19 History morphine 15 mg PO Q12H 11/27/18 08/20/19 History montelukast 10 mg PO DAILY 06/11/19 08/20/19 History oxybutynin chloride 10 mg PO PM 06/11/19 08/20/19 History loratadine 10 mg PO DAILY PRN 08/20/19 08/20/19 History Past Med/Surg History Medical History Anxiety (Chronic) Bipolar disorder (Chronic) CAD (coronary artery disease) (Chronic) History of multiple PCI's to the RCA with subsequent CABG x1 in 2010 x 1 vessel Most recent cardiac testing-negative DSE in December 2017 Follows w/ Dr. Blackwell and Dr. Lucas Octhyxr-Nsmcw-Nrkht disease (Chronic) follows w/ Dr. Lemus Chronic diastolic CHF (congestive heart failure) (Chronic) Depression DM type 2 (diabetes mellitus, type 2) (Chronic) IDDM Dyslipidemia (Chronic) Gastroparesis (Chronic) GERD (gastroesophageal reflux disease) Hypertension (Chronic) Hypothyroidism (Chronic) Irregular heart beat follows Dr. 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 Rosenthal Osteoarthritis Portal hypertensive gastropathy (Chronic) Spondylosis Surgical History History of appendectomy (Chronic) History of back surgery (Chronic) sacral area History of cardiac cath multiple - most recent - 2 years ago @ [place] - FOR [facility] History of cataract surgery History of colonoscopy History of esophagogastroduodenoscopy (EGD) History of heart artery stent 2 yrs ago @ [facility] > unsure of how many stents > follows Dr. 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: No Beliefs That Will Affect Care: Bahai Bahai Beliefs: MELISSA ACEVEDOJUSTIN/ PT AT THIS POINT THINKS SHE WOULD STILL RECEIVE A BLOOD TRANSFUSION Current Living Situation: Alone Feels Safe at Home: Yes Smoking Status: Never smoker Second Hand Exposure: Yes ; Hx Alcohol Use: No Hx Substance Use: No Physical Exam Physical Exam: ROS-No Headache, No Visual Changes, No Nausea, No Vomiting, + Fever, No Chills, No Neck Pain or Stiffness, No Chest Pain, No Palpitations, No SOB, No MONROE, No Cough, No Sputum, No Wheezing, No Abdominal Pain, No Diarrhea, No Hematemesis, No Hemoptysis, No Unexpected Weight Loss, No Flank pain, No Melena, No Hematochezia, No Frequency, No Urgency, No Burning, No Hematuria, No Rashes, No Diaphoresis. Appetite is Normal, +Weakness, +R Flank Pain Physical Exam Gen-AAO x 2, NAD, febrile Head-NCAT, EOMI, PERRLA, Anicteric Sclera, No Posterior Pharyngeal Erythema, edentulous Neck-Supple, No JVD, No Thyromegaly, No Masses, No LAD, No Bruits Lungs-Clear to Auscultation Bilaterally, No Rales, No Rhonchi, No Wheezing, No Crepitus Chest-No S4, +S1, +S2, No S3, No Murmurs, No Rubs, No Gallops, No Ectopy Abdomen-Soft, Bowel Sounds Present, Non Tender, Non Distended, No Hepatomegaly, No Splenomegaly, No Palpable Masses, No Rebound, No Rigidity, No Guarding Musculoskeletal-Full Range of Motion Bilaterally, Right CVAT Extremities-No Cyanosis, No Clubbing, No Edema Nuero-Cranial Nerves II-XII grossly intact, Motor WNL, DTRs WNL, Strength WNL, Non Focal Psych-Normal Mood Results & Data Vital Signs (Past 12 Hours) Vital Signs Temp Pulse Pulse Resp BP BP Pulse Ox 08/20/19 18:04 73 18 140/79 91 08/20/19 16:14 83 18 115/55 L 08/20/19 14:14 38.9 C H 84 20 130/77 92 Allergies propoxyphene Allergy (Mild, Verified 08/20/19 15:07) Rash fentanyl Allergy (Unknown, Verified 08/20/19 15:07) PANIC WANTS TO RUN AND AGGRESSIVE zolpidem Adverse Reaction (Intermediate, Verified 08/20/19 15:07) confusion methocarbamol Adverse Reaction (Mild, Verified 08/20/19 15:07) DELERIUM Height/Weight/Isolation Height 5 ft 8 in Weight 100 kg Chemistry 08/20/19 15:37 Sodium 132 L Potassium 4.1 Chloride 98 Carbon Dioxide 28 Anion Gap 6.0 BUN 12 Creatinine 0.98 Glucose 167 H Urinalysis 08/20/19 15:15 Urine Color Yellow Urine Appearance Cloudy A Urine pH 6.0 Ur Specific Driver 1.006 Urine Protein Negative Urine Glucose (UA) Negative Urine Ketones Negative Urine Blood Trace H Urine Nitrite Positive A Urine Bilirubin Negative Microbiology 08/20/19 15:28 Blood Aerobic Blood Culture - Pending 08/20/19 15:28 Blood Anaerobic Blood Culture - Pending 08/20/19 15:37 Blood Aerobic Blood Culture - Pending 08/20/19 15:37 Blood Anaerobic Blood Culture - Pending 08/20/19 15:15 Urine,Clean Catch Urine Culture - Pending
[2019-08-20] MEDS ORDERED: BENZONATATE 100 MG CAPSULE PO PRN (20:16)
[2019-08-20] MEDS ORDERED: GLUCOSE 40% GEL 15 GM TUBE PO PRN (20:16)
[2019-08-20] MEDS ORDERED: GLUCAGON FOR INJ 1 MG VIAL SQ PRN (20:16)
[2019-08-20] MEDS ORDERED: NITROGLYCERIN SL 0.4 MG/TAB TAB SL PRN (20:16)
[2019-08-20] MEDS ORDERED: GLUCOSE 10 TABS/TUBE PO PRN (20:16)
[2019-08-20] MEDS ORDERED: DICYCLOMINE HCL 10 MG CAP PO PRN (20:16)
[2019-08-20] MEDS ORDERED: LORATADINE 10 MG TAB PO PRN (20:16)
[2019-08-20] MEDS ORDERED: POLYETHYLENE (MIRALAX) 17 GM PACK PO PRN (20:16)
[2019-08-20] MEDS ORDERED: CARBOHYDRATES FOR HYPOGLYCEMIA PO PRN (20:16)
[2019-08-20] MEDS ORDERED: DEXTROSE 50% 50 ML SYRINGE IV PRN (20:16)
[2019-08-20] MEDS ORDERED: OXYCODONE HCL IR 5 MG TAB (IMMEDIATE RELEASE) PO PRN (20:16)
[2019-08-20] MEDS ORDERED: ALBUTEROL HFA 8 GM INHALER INH PRN (20:16)
[2019-08-20] MEDS ORDERED: ONDANSETRON INJ 2 MG/ML 2 ML VIAL IV PRN (20:16)
[2019-08-20] MEDS ORDERED: LACTULOSE SYRUP 20 GM/30 ML UDC PO PRN (20:57)
[2019-08-20] MEDS ORDERED: INSULIN DETEMIR FLEXPEN/FLEX TOUCH 100 UNITS/ML 3ML SQ SCH (21:00)
[2019-08-20] MEDS ORDERED: PHARMACY GLYCEMIC MGMT CONSULT PRN (21:04)
[2019-08-20] MEDS: FAMOTIDINE 40 MG TABLET PO SCH (21:41)
[2019-08-20] MEDS: ATORVASTATIN 40 MG TAB PO SCH (21:41)
[2019-08-20] MEDS: ARIPIprazole 1 MG/ML ORAL SOLN 150 ML BTL PO SCH (21:41)
[2019-08-20] MEDS: MONTELUKAST SODIUM 10 MG TABLET PO SCH (21:41)
[2019-08-20] MEDS: OXYBUTYNIN CHLORIDE XL 5 MG TABCR PO SCH (21:41)
[2019-08-20] MEDS: METOPROLOL SUCC 50MG EXT REL TAB PO SCH (21:41)
[2019-08-20] MEDS: MAGNESIUM OXIDE 400 MG TAB PO SCH (21:41)
[2019-08-20] MEDS: PANTOprazole 40 MG TAB PO SCH (21:41)
[2019-08-20] MEDS: GABAPENTIN 600 MG TAB PO SCH (21:42)
[2019-08-20] MEDS: HEPARIN SOD 5,000 UNIT/0.5 ML VIAL SQ SCH (21:42)
[2019-08-20] MEDS: MoRPHine SULFATE CR 15 MG TABCR PO SCH (21:42)
[2019-08-20] MEDS: INSULIN ASPART 100 UNITS/ML 3 ML PEN SC SCH (21:42)
[2019-08-20] MEDS: INSULIN DETEMIR FLEXPEN/FLEX TOUCH 100 UNITS/ML 3ML SC SCH (21:43)
[2019-08-20] MEDS: TRAZODONE HCL 50 MG TAB PO SCH (22:12)
--- NOTE | 2019-08-20 22:13 | Emergency Department Note ---
Entered by Linda Cloud acting as a scribe for History of Present Illness General Chief complaint: Confusion Stated complaint: CONFUSION Time Seen by Provider: 08/20/19 14:41 Source: patient Mode of arrival: ambulatory Limitations: no limitations History of Present Illness Provider complaint: Fever Onset (ago): hour(s) (today) Pain Consistency: + other (persistent) Maximum Pain Intensity: 5 Quality: + other (fever) Associated symptoms: + confusion, + fever/chills, + headaches and + other (Additional symptoms: abdominal pain, body aches, diarrhea, painful urination. Denies: cold symptoms); no cough Treatments prior to arrival: none The patient is a 69 year old female with a history of CAD, CHF, type 2 diabetes, dyslipidemia, GERD, hypertension, hypothyroidism, ESPANA, Jbhnncz-Uwacy-Ayuri disease, cardiac catheterization, back surgery, appendectomy, CABG, and hysterectomy who presents to the Emergency Room with complaints of a persistent fever starting today. The patient reports that she felt sluggish when she woke up this morning, so she took her temperature and found out that she had a fever. She currently complains of a headache and diffuse abdominal pain, and she recalls that she also experienced chills and body aches this morning. She indicates that she did not have a fever yesterday, although she has been having diarrhea, vomiting, and painful urination. She adds that she has been increasingly confused over the past two weeks. She explains that she often does not know where she is. She otherwise denies any cough and cold symptoms, in addition to any recent falls. The patient reports that she has been taking all of her medications as prescribed, although she has not yet taken them today. She mentions that she only takes Lactulose as needed and that she has not tried Tylenol and Ibuprofen for her symptoms due to her liver. She notes that she lives alone and ambulates with a walker. The patient states that she was referred to the ED by her PCP today. Home Medications Home Medications Medication Instructions Recorded Confirmed Type albuterol sulfate [Ventolin HFA] 2 puff INHALATION QID PRN 04/27/18 08/20/19 History aripiprazole 2 mg PO HS 04/27/18 08/20/19 History atorvastatin 80 mg PO HS 04/27/18 08/20/19 History benzonatate 100 mg PO TID PRN 04/27/18 08/20/19 History clonazepam 0.5 mg PO BID PRN 04/27/18 08/20/19 History dicyclomine 10 mg PO QID PRN 04/27/18 08/20/19 History dulaglutide 0.5 ml SUBCUT WK 04/27/18 08/20/19 History ergocalciferol (vitamin D2) 50,000 units PO WK 04/27/18 08/20/19 History famotidine 40 mg PO HS 04/27/18 08/20/19 History gabapentin 600 mg PO BID 04/27/18 08/20/19 History insulin detemir U-100 20 units SUBCUT HS 04/27/18 08/20/19 History insulin detemir U-100 25 units SUBCUT QAM 04/27/18 08/20/19 History lactulose 30 ml PO BID PRN 04/27/18 08/20/19 History lamotrigine 25 mg PO QAM 04/27/18 08/20/19 History lamotrigine 50 mg PO HS 04/27/18 08/20/19 History lamotrigine 100 mg PO QAM 04/27/18 08/20/19 History levothyroxine 88 mcg PO QAM 04/27/18 08/20/19 History magnesium oxide 400 mg PO HS 04/27/18 08/20/19 History metformin 1,000 mg PO BID 04/27/18 08/20/19 History metoprolol succinate 50 mg PO BID 04/27/18 08/20/19 History nitroglycerin [Nitrostat] 0.4 mg SUBLINGUAL DIRECTED PRN 04/27/18 08/20/19 History omeprazole 20 mg PO BID 04/27/18 08/20/19 History ondansetron HCl 8 mg PO Q8H PRN 04/27/18 08/20/19 History oxycodone 5 - 10 mg PO TID PRN MDD 20mg 04/27/18 08/20/19 History trazodone 150 mg PO HS 04/27/18 08/20/19 History venlafaxine 150 mg PO QAM 04/27/18 08/20/19 History isosorbide mononitrate 60 mg PO QAM 09/03/18 08/20/19 History spironolactone 50 mg PO BID 09/03/18 08/20/19 History torsemide 20 mg PO QAM 09/03/18 08/20/19 History morphine 15 mg PO Q12H 11/27/18 08/20/19 History montelukast 10 mg PO DAILY 06/11/19 08/20/19 History oxybutynin chloride 10 mg PO PM 06/11/19 08/20/19 History loratadine 10 mg PO DAILY PRN 08/20/19 08/20/19 History Allergies Allergy/AdvReac Type Severity Reaction Status Date / Time propoxyphene Allergy Mild Rash Verified 08/20/19 15:07 fentanyl AdvReac Intermediate PANIC Verified 08/20/19 20:21 WANTS TO RUN AND AGGRESSIVE zolpidem AdvReac Intermediate confusion Verified 08/20/19 15:07 methocarbamol AdvReac Mild DELERIUM Verified 08/20/19 15:07 Past Med/Surg History Medical History Anxiety (Chronic) Bipolar disorder (Chronic) CAD (coronary artery disease) (Chronic) History of multiple PCI's to the RCA with subsequent CABG x1 in 2010 x 1 vessel Most recent cardiac testing-negative DSE in December 2017 Follows w/ Dr. Blackwell and Dr. Lucas Xlcmbkz-Fhohv-Rwlst disease (Chronic) follows w/ Dr. Lemus Chronic diastolic CHF (congestive heart failure) (Chronic) Depression DM type 2 (diabetes mellitus, type 2) (Chronic) IDDM Dyslipidemia (Chronic) Gastroparesis (Chronic) GERD (gastroesophageal reflux disease) Hypertension (Chronic) Hypothyroidism (Chronic) Irregular heart beat follows Dr. 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 Rosenthal Osteoarthritis Portal hypertensive gastropathy (Chronic) Spondylosis Surgical History History of appendectomy (Chronic) History of back surgery (Chronic) sacral area History of cardiac cath multiple - most recent - 2 years ago @ [facility] History of cataract surgery History of colonoscopy History of esophagogastroduodenoscopy (EGD) History of heart artery stent 2 yrs ago @ [facility] > unsure of how many stents > follows Dr. Lucas History of total right knee replacement (Chronic) Hx of cholecystectomy (Chronic) S/P CABG x 1 (Chronic) 2011 - single vessel S/P CARLOS (total abdominal hysterectomy) (Chronic) Family History Father Coronary heart disease Brother Coronary heart disease Father Diabetes Mother Diabetes Social History Preferred Language: Azerbaijani Communication Ability: Effective Customer Orders Clerk Required: No Beliefs That Will Affect Care: None Current Living Situation: Family Other Information That Helps Us Care for You: No Feels Safe at Home: Yes Safety Concerns: Feels Safe At This Time Smoking Status: Unknown if ever smoked Hx Alcohol Use: No Hx Substance Use: No Review of Systems See HPI for pertinent positives & negatives. and A total of 10 systems reviewed and were otherwise negative Physical Exam Vital Signs Vital Signs - 24 hr 08/20/19 14:14 08/20/19 16:14 08/20/19 18:04 Temperature 38.9 C H Temperature Source Oral Pulse Rate 84 Pulse Rate [Apical] 83 73 Respiratory Rate 20 18 18 Respiratory Effort / Characteristics Non-Labored Spontaneous Respiratory Depth Normal Normal Blood Pressure 130/77 Blood Pressure [Left Arm] 115/55 L 140/79 Blood Pressure Mean 94 Blood Pressure Mean [Left Arm] 75 99 Pulse Oximetry 92 91 Oxygen Delivery Method Room Air Sepsis Recent Fever Within 48 Hours Yes Sepsis New/Unexplained Change in Mental Status Yes Sepsis Action Taken by Nursing No Action Required GENERAL: Awake, alert, fatigued-appearing, in no distress HENT: Normocephalic, atraumatic. EYES: Normal conjunctiva. Sclera non-icteric. NECK: Supple. No nuchal rigidity. RESPIRATORY: Clear to auscultation. No wheezes. Normal respiratory effort. CARDIAC: Normal rate. Normal rhythm. Extremities warm and well perfused. GI: Soft, non-distended. Mild diffuse tenderness to palpation. No rebound or guarding. No masses. RECTAL: Deferred. MUSCULOSKELETAL: Atraumatic. Chest examination reveals no tenderness. There is no CVA tenderness to palpation. LOWER EXTREMITIES: Calves are equal size bilaterally and non-tender. 1+ pedal edema NEURO: Normal sensorium. No sensory or motor deficits noted. No facial droop. SKIN: Warm and dry. No rash or jaundice noted. Course Course 8494: The patient was evaluated in room B7, and a complete history and physical examination were performed. 1747: I reviewed the patient's case with Manpreet Dinh PA-C. Dr. Fostre - [facility] will evaluate the patient for further management. Consultations Consultation #1: I reviewed the patient's case with Manpreet Dinh PA-C. Dr. Foster - Hospitalist will evaluate the patient for further management. Time: 17:47 Administered Medications Aripiprazole (Abilify) 2 mg PO HS [facility] Stop: 09/19/19 20:59 Last Admin: 08/20/19 21:41 Dose: 2 mg Documented by: [id number] Atorvastatin Calcium (Lipitor) 80 mg PO HS [facility] Stop: 09/19/19 20:59 Last Admin: 08/20/19 21:41 Dose: 80 mg Documented by: [id number] Famotidine (Pepcid) 40 mg PO HS [facility] Stop: 09/19/19 20:59 Last Admin: 08/20/19 21:41 Dose: 40 mg Documented by: [id number] Gabapentin (Neurontin) 600 mg PO BID [facility] Stop: 09/19/19 20:59 Last Admin: 08/20/19 21:42 Dose: 600 mg Documented by: [id number] Heparin Sodium (Porcine) (Heparin Sodium (Porcine)) 5,000 units SQ Q8 [facility] Stop: 09/19/19 21:59 Last Admin: 08/20/19 21:42 Dose: 5,000 units Documented by: [id number] Cosigned by: [id number] Insulin Aspart (Novolog Flexpen) 0 units SC ACHS [facility] Stop: 09/19/19 20:59 Last Admin: 08/20/19 21:42 Dose: 1 units Documented by: [id number] Cosigned by: [id number] Insulin Detemir (Levemir Flextouch) 0 units SC BID [facility]; Protocol Stop: 09/19/19 20:59 Last Admin: 08/20/19 21:43 Dose: 20 units Documented by: [id number] Cosigned by: [id number] Ioversol (Optiray 320 100ml) 93 ml IV ONCE PRN PRN Reason: Interaction Checking Stop: 08/24/19 16:49 Last Admin: 08/20/19 16:51 Dose: 93 ml Documented by: [id number] Magnesium Oxide (Mag-Ox) 400 mg PO HS ANGELL[facility] Stop: 09/19/19 20:59 Last Admin: 08/20/19 21:41 Dose: 400 mg Documented by: [id number] Metoprolol Succinate (Toprol Xl) 50 mg PO BID ANGELL[facility] Stop: 09/19/19 20:59 Last Admin: 08/20/19 21:41 Dose: 50 mg Documented by: [id number] Montelukast Sodium (Singulair) 10 mg PO HS [facility] Stop: 09/19/19 20:59 Last Admin: 08/20/19 21:41 Dose: 10 mg Documented by: [id number] Morphine Sulfate (Ms Contin) 15 mg PO Q12 ANGELLA Stop: 09/03/19 20:59 Last Admin: 08/20/19 21:42 Dose: 15 mg Documented by: [id number] Oxybutynin Chloride (Ditropan Xl) 10 mg PO PM [facility] Stop: 09/19/19 20:59 Last Admin: 08/20/19 21:41 Dose: 10 mg Documented by: [id number] Pantoprazole Sodium (Protonix) 40 mg PO BID ANGELLA Stop: 09/19/19 20:59 Last Admin: 08/20/19 21:41 Dose: 40 mg Documented by: [id number] Discontinued Medications Sodium Chloride (Nss 1000ml) 500 mls @ 999 mls/hr IV .Q31M ONE Stop: 08/20/19 15:30 Last Infusion: 08/20/19 16:22 Dose: 0 mls/hr Documented by: [id number] Admin: 08/20/19 15:40 Dose: 999 mls/hr Documented by: [id number] Ertapenem (Invanz) 10 mls @ 2 mls/min IV NOW STA Stop: 08/20/19 16:14 Last Admin: 08/20/19 16:20 Dose: 2 mls/min Documented by: [id number] Medical Decision Making Differential Diagnosis Differential diagnosis: Etiologies such as metabolic, infection, hypo/hyperglycemia, electrolyte abnormalities, cardiac sources, intracerebral event, toxicologic, neurologic, as well as others were entertained. Medical Records Attestation: I reviewed the patient's medical records. Home Medications Current Medication List: was personally reviewed by me Laboratory Data Attestation: I reviewed the patient's lab results. Result diagrams: 08/20/19 15:37 08/20/19 15:37 Lab Results 08/20/19 08/20/19 08/20/19 Range/Units 15:15 15:15 15:37 WBC 7.24 (4.8-10.8) K/uL RBC 4.77 (4.2-5.4) M/uL Hgb 11.9 L (12.0-16.0) g/dL Hct 36.1 L (37-47) % MCV 75.7 L (80-100) fL MCH 24.9 L (25-34) pg MCHC 33.0 (32-36) g/dL RDW Std Deviation 45.5 (36.4-46.3) fL RDW Coeff of Guillermo 16.5 H (11.5-14.5) % Plt Count 107 L (130-400) K/uL MPV 9.7 (7.4-10.4) fL Immature Gran % (Auto) 0.3 % Neut % (Auto) 67.8 % Lymph % (Auto) 21.1 % Irwin % (Auto) 8.1 % Eos % (Auto) 2.6 % Baso % (Auto) 0.1 % Immature Gran # (Auto) 0.02 (0.00-0.02) K/uL Neut # (Auto) 4.90 (1.4-6.5) K/uL Lymph # (Auto) 1.53 (1.2-3.4) K/uL Irwin # (Auto) 0.59 (0.11-0.59) K/uL Eos # (Auto) 0.19 (0-0.5) K/uL Baso # (Auto) 0.01 (0-0.2) K/uL PT (9.0-12.0) Seconds INR (0.9-1.1) Sodium (136-145) mmol/L Potassium (3.5-5.1) mmol/L Chloride (98-107) mmol/L Carbon Dioxide (21-32) mmol/L Anion Gap (3-11) BUN (7-18) mg/dl Creatinine (0.6-1.2) mg/dl Est Cr Clr Drug Dosing ml/min Est GFR ( Amer) Est GFR (Non-Af Amer) BUN/Creatinine Ratio (10-20) Glucose (70-99) mg/dl Lactate (0.4-2.0) mmol/L Calcium (8.5-10.1) mg/dl Total Bilirubin (0.2-1) mg/dl AST (15-37) U/L ALT (12-78) U/L Alkaline Phosphatase (45-117) U/L Ammonia (11-32) umol/L Troponin I (0-0.045) ng/ml Total Protein (6.4-8.2) gm/dl Albumin (3.4-5.0) gm/dl Globulin (2.5-4.0) gm/dl Albumin/Globulin Ratio (0.9-2) Lipase (73-393) U/L Procalcitonin (0-0.5) ng/ml TSH (0.300-4.500) uIu/ml Urine Color Yellow Urine Appearance Cloudy A (Clear) Urine pH 6.0 (4.5-7.5) Ur Specific [place] 1.006 (1.000-1.030) Urine Protein Negative (Negative) Urine Glucose (UA) Negative (Negative) Urine Ketones Negative (Negative) Urine Blood Trace H (Negative) Urine Nitrite Positive A (Negative) Urine Bilirubin Negative (Negative) Urine Urobilinogen Negative (Negative) Ur Leukocyte Esterase 3+ H (Negative) Urine WBC (Auto) >30 H (0-5) /hpf Urine RBC (Auto) 0-4 (0-4) /hpf U Hyaline Cast (Auto) 1-5 (0-5) /lpf U Epithel Cells (Auto) 5-10 H (0-5) /lpf Urine Bacteria (Auto) 2+ H (Negative) Urine Yeast Not Reportable Influenza Type A (PCR) Neg for Influ A (Neg) Influenza Type B (PCR) Neg for Influ B (Neg) 08/20/19 08/20/19 08/20/19 Range/Units 15:37 15:37 15:37 WBC (4.8-10.8) K/uL RBC (4.2-5.4) M/uL Hgb (12.0-16.0) g/dL Hct (37-47) % MCV (80-100) fL MCH (25-34) pg MCHC (32-36) g/dL RDW Std Deviation (36.4-46.3) fL RDW Coeff of Guillermo (11.5-14.5) % Plt Count (130-400) K/uL MPV (7.4-10.4) fL Immature Gran % (Auto) % Neut % (Auto) % Lymph % (Auto) % Irwin % (Auto) % Eos % (Auto) % Baso % (Auto) % Immature Gran # (Auto) (0.00-0.02) K/uL Neut # (Auto) (1.4-6.5) K/uL Lymph # (Auto) (1.2-3.4) K/uL Irwin # (Auto) (0.11-0.59) K/uL Eos # (Auto) (0-0.5) K/uL Baso # (Auto) (0-0.2) K/uL PT 11.0 (9.0-12.0) Seconds INR 1.1 (0.9-1.1) Sodium 132 L (136-145) mmol/L Potassium 4.1 (3.5-5.1) mmol/L Chloride 98 (98-107) mmol/L Carbon Dioxide 28 (21-32) mmol/L Anion Gap 6.0 (3-11) BUN 12 (7-18) mg/dl Creatinine 0.98 (0.6-1.2) mg/dl Est Cr Clr Drug Dosing 66.1 ml/min Est GFR ( Amer) 67.7 Est GFR (Non-Af Amer) 58.4 BUN/Creatinine Ratio 11.7 (10-20) Glucose 167 H (70-99) mg/dl Lactate 1.2 (0.4-2.0) mmol/L Calcium 9.0 (8.5-10.1) mg/dl Total Bilirubin 0.8 (0.2-1) mg/dl AST 21 (15-37) U/L ALT 19 (12-78) U/L Alkaline Phosphatase 132 H (45-117) U/L Ammonia (11-32) umol/L Troponin I < 0.015 (0-0.045) ng/ml Total Protein 6.7 (6.4-8.2) gm/dl Albumin 3.4 (3.4-5.0) gm/dl Globulin 3.3 (2.5-4.0) gm/dl Albumin/Globulin Ratio 1.0 (0.9-2) Lipase 85 (73-393) U/L Procalcitonin (0-0.5) ng/ml TSH 1.600 (0.300-4.500) uIu/ml Urine Color Urine Appearance (Clear) Urine pH (4.5-7.5) Ur Specific [place] (1.000-1.030) Urine Protein (Negative) Urine Glucose (UA) (Negative) Urine Ketones (Negative) Urine Blood (Negative) Urine Nitrite (Negative) Urine Bilirubin (Negative) Urine Urobilinogen (Negative) Ur Leukocyte Esterase (Negative) Urine WBC (Auto) (0-5) /hpf Urine RBC (Auto) (0-4) /hpf U Hyaline Cast (Auto) (0-5) /lpf U Epithel Cells (Auto) (0-5) /lpf Urine Bacteria (Auto) (Negative) Urine Yeast Influenza Type A (PCR) (Neg) Influenza Type B (PCR) (Neg) 08/20/19 08/20/19 Range/Units 15:37 15:37 WBC (4.8-10.8) K/uL RBC (4.2-5.4) M/uL Hgb (12.0-16.0) g/dL Hct (37-47) % MCV (80-100) fL MCH (25-34) pg MCHC (32-36) g/dL RDW Std Deviation (36.4-46.3) fL RDW Coeff of Guillermo (11.5-14.5) % Plt Count (130-400) K/uL MPV (7.4-10.4) fL Immature Gran % (Auto) % Neut % (Auto) % Lymph % (Auto) % Irwin % (Auto) % Eos % (Auto) % Baso % (Auto) % Immature Gran # (Auto) (0.00-0.02) K/uL Neut # (Auto) (1.4-6.5) K/uL Lymph # (Auto) (1.2-3.4) K/uL Irwin # (Auto) (0.11-0.59) K/uL Eos # (Auto) (0-0.5) K/uL Baso # (Auto) (0-0.2) K/uL PT (9.0-12.0) Seconds INR (0.9-1.1) Sodium (136-145) mmol/L Potassium (3.5-5.1) mmol/L Chloride (98-107) mmol/L Carbon Dioxide (21-32) mmol/L Anion Gap (3-11) BUN (7-18) mg/dl Creatinine (0.6-1.2) mg/dl Est Cr Clr Drug Dosing ml/min Est GFR ( Amer) Est GFR (Non-Af Amer) BUN/Creatinine Ratio (10-20) Glucose (70-99) mg/dl Lactate (0.4-2.0) mmol/L Calcium (8.5-10.1) mg/dl Total Bilirubin (0.2-1) mg/dl AST (15-37) U/L ALT (12-78) U/L Alkaline Phosphatase (45-117) U/L Ammonia 28.6 (11-32) umol/L Troponin I (0-0.045) ng/ml Total Protein (6.4-8.2) gm/dl Albumin (3.4-5.0) gm/dl Globulin (2.5-4.0) gm/dl Albumin/Globulin Ratio (0.9-2) Lipase (73-393) U/L Procalcitonin 0.15 (0-0.5) ng/ml TSH (0.300-4.500) uIu/ml Urine Color Urine Appearance (Clear) Urine pH (4.5-7.5) Ur Specific [place] (1.000-1.030) Urine Protein (Negative) Urine Glucose (UA) (Negative) Urine Ketones (Negative) Urine Blood (Negative) Urine Nitrite (Negative) Urine Bilirubin (Negative) Urine Urobilinogen (Negative) Ur Leukocyte Esterase (Negative) Urine WBC (Auto) (0-5) /hpf Urine RBC (Auto) (0-4) /hpf U Hyaline Cast (Auto) (0-5) /lpf U Epithel Cells (Auto) (0-5) /lpf Urine Bacteria (Auto) (Negative) Urine Yeast Influenza Type A (PCR) (Neg) Influenza Type B (PCR) (Neg) Imaging Data Radiologist's Impression: Radiology results as stated below per my review and the radiologist's interpretation: XR chest 1V portable CLINICAL HISTORY: fever COMPARISON STUDY: No previous studies for comparison. FINDINGS: There are postsurgical changes of midline sternotomy. The heart is normal in size. There is no failure. There is no lobar consolidation. There are no pleural effusions. An opacity at the left lung base, likely represents summation with the left fifth costochondral junction.[ IMPRESSION: No active disease in the chest. ACT 112: Negative or not required by law. Electronically signed by: Devang Wood M.D. 08/20/2019 3:[address] head/brain wo con CLINICAL HISTORY: confusion COMPARISON STUDY: 02/02/2017 TECHNIQUE: Axial CT of the brain is performed from the vertex to the skull base. IV contrast was not administered for this examination. A dose lowering technique was utilized adhering to the principles of ALARA. CT DOSE: 537.48 mGy.cm FINDINGS: No intra or extra-axial mass lesions are visualized. There is no CT evidence of acute cortical infarction. There is no evidence of midline shift. There is no acute hemorrhage. No calvarial fractures are visualized. There are minor white matter hypodensities likely on a small vessel basis. There is no evidence of pathologic ventricular dilatation. There is no evidence of acute sinusitis. There are persistent extensive calcifications involving the distal left vertebral artery IMPRESSION: No acute intracranial findings ACT 112: Negative or not required by law. Electronically signed by: Devang Wood M.D. 08/20/2019 4:[address] abd pelvis IV con only CLINICAL HISTORY: pain, fever COMPARISON STUDY: November 2017, January 2017. TECHNIQUE: The patient was scanned in a dynamic helical fashion during intravenous administration of 93 cc of Optiray 320. A dose lowering technique was utilized adhering to the principles of ALARA. CT DOSE: 1482.97 mGy.cm FINDINGS: Lower chest: There are coronary artery calcifications present. There are mild dependent atelectatic changes. There are no significant pleural effusions. Liver: There is mild intrahepatic biliary ductal dilatation, likely related to a prior cholecystectomy. No focal hepatic masses are visualized. The portal and hepatic veins appear patent. Gallbladder: Surgically absent Spleen: The spleen is mildly enlarged measuring 13.9 cm. This remain stable. Pancreas: Unremarkable. Adrenal glands: Unremarkable. Kidneys: There is mild right-sided perinephric edema and mild right-sided periureteral edema. No ureteral calculi are visualized. There is minimal fullness the right renal collecting system. There is subtle uroepithelial enhancement. Correlate clinically for evidence of a passed calculus or urinary tract infection. Bowel: There are no transition zone to indicate bowel obstruction. By history the appendix is surgically absent. There is no acute diverticulitis. Peritoneum: There is no intraperitoneal free air or abdominal ascites. Vasculature: The abdominal aorta is normal in course and caliber. Adenopathy: None. Pelvic viscera: The uterus is surgically absent. There is a droplet of air within the bladder likely iatrogenic. Skeletal structures: There are moderately advanced multilevel degenerative changes within the cervical spine. IMPRESSION: 1. No evidence of bowel obstruction. No evidence of free air 2. Mild splenomegaly 3. Surgically absent appendix, uterus, and gallbladder 4. Droplet of air within the bladder likely iatrogenic 5. Mild right-sided perinephric edema, and mild right-sided periureteral edema with subtle uroepithelial enhancement. Likely diagnostic considerations include ascending urinary tract infection, versus passed calculus. Correlation with clinical findings and urinalysis is recommended. ACT 112: Negative or not required by law. Electronically signed by: Devang Wood M.D. 08/20/2019 5:10 PM ECG Data Attestation: I personally reviewed and interpreted this ECG as follows: Indication: + other (fever) Rate (beats per minute): 78 Rhythm: + normal sinus ECG Intervals/blocks: + Normal QRS, + Normal QT and + Normal MN ECG ST segments: no ST depression and no ST elevation ECG Findings: no PVCs Blood Pressure Blood Pressure Findings: Normal blood pressure Blood Pressure Disposition: further management by hospitalist KELLY John Patient is a 69-year-old female with a past medical history including [place], heart failure, CAD, diabetes, bipolar disorder, and UTIs presenting today with 2-week history of some increased confusion and unsteady gait developed a fever today. Referred from the outpatient setting. Complains of some diffuse abdominal pain but not significantly tender. Denies URI symptoms or significant cough. Patient states he is had a bit of headache over the last week or so. Denies any new trauma or falls. Patient states he lives alone. Patient relays some diarrhea as well as some dysuria symptoms. Patient states she has not taken her medications today. Concern for possible elevated ammonia hepatic encephalopathy given that she is not been taking her lactulose as regulated from what she reports. Basic labs are completed as well. Given her report of a headache to complete imaging of the head and CT abdomen pelvis given abdominal discomfort and history of liver dysfunction. Not significantly distended peritoneal and lower suspicion for acute SBP. Urinalysis was checked given her history of ESBL UTIs that could be contributing. Chest x-ray is unremarkable. Patient without significant leukocytosis. Urinalysis is concerning for rec urrent UTI and he and the patient symptomatic with a reported fever. Given a dose of ertapenem here discussion with pharmacy. Does not appear septic at this point. CT head unremarkable. CT abdomen pelvis with R kidney inflammation - this and systemic symptoms concern for pyelonephritis. Given her history of ESBL UTIs feel had admission overnight with her confusion and weakness is reasonable. Hospitalist contacted. Impression & Plan Pyelonephritis, Acute UTI, Weakness Discharge Plan Visit Data *Final* Discharge Date/Time: 08/20/19 19:53 Chief Complaint: Confusion Stated Complaint: CONFUSION ED Provider: David Metz Discharge Problem: Pyelonephritis, Acute UTI, Weakness Patient Disposition: Admitted As Inpatient Discharge Instructions Interventions: ED Discharge Assessment Last Done: 08/20/19 19:53 The serenityibe's documentation has been prepared under my direction and personally reviewed by me in its entirety. I confirm that the note above accurately reflects all work, treatment, procedures, and medical decision making performed by me.
[2019-08-21] MEDS: HEPARIN SOD 5,000 UNIT/0.5 ML VIAL SQ SCH ×3 (06:28→20:58)
[2019-08-21] MEDS: LEVOTHYROXINE SODIUM 88 MCG TABLET PO SCH (06:28)
[2019-08-21 07:16] LABS: Basophils # (auto) 0.03 K/uL (0-0.2); Basophils % (auto) 0.5 %; Eosinophils # (auto) 0.19 K/uL (0-0.5); Eosinophils % (auto) 3.2 %; Hematocrit (blood only) 37.8 % (37-47); Hemoglobin 12.5 g/dL (12.0-16.0); Immature Granulocytes # (auto) 0.02 K/uL (0.00-0.02); Immature Granulocytes % (auto) 0.3 %; Lymphocytes % (auto) 33.2 %; Mean Corpuscular Hgb Conc 33.1 g/dL (32-36); Mean Corpuscular Volume 75.6 fL (80-100); Mean Platelet Volume 9.8 fL (7.4-10.4); Monocytes # (auto) 0.54 K/uL (0.11-0.59); Neutrophils # (auto) 3.25 K/uL (1.4-6.5); Neutrophils % (auto) 53.8 %; Platelet Count 116 K/uL (130-400); RDW Coefficient of Variation 16.9 % (11.5-14.5); RDW Standard Deviation 46.8 fL (36.4-46.3); White Blood Count 6.03 K/uL (4.8-10.8)
[2019-08-21 07:28] LABS: Albumin Level 3.4 gm/dl (3.4-5.0); BUN Creatinine Ratio 11.8 (10-20); Calcium 9.4 mg/dl (8.5-10.1); Creatinine Clr Calc Pharmacy 63.5 ml/min; Est GFR (African American) 65.3; Est GFR (Non-African American) 56.4; Potassium 3.6 mmol/L (3.5-5.1)
[2019-08-21 07:30] LABS: Estimated Average Glucose 183 mg/dl
[2019-08-21 07:31] LABS: Bilirubin,Total 0.8 mg/dl (0.2-1); Globulin 3.5 gm/dl (2.5-4.0); Total Protein 6.9 gm/dl (6.4-8.2)
--- NOTE | 2019-08-21 08:18 | Electrocardiogram Report ---
Test Reason : Blood Pressure : / mmHG Vent. Rate : 078 BPM Atrial Rate : 078 BPM P-R Int : 140 ms QRS Dur : 096 ms QT Int : 372 ms P-R-T Axes : 046 038 079 degrees QTc Int : 424 ms Normal sinus rhythm Low voltage QRS Possible Inferior infarct , age undetermined Abnormal ECG When compared with ECG of 04-SEP-2018 06:20, No significant change Confirmed by Eron Angeles ([id number]) on 08/21/2019 8:17:28 AM Referred By: Confirmed By:Eron Angeles
[2019-08-21] MEDS ORDERED: INSULIN DETEMIR FLEXPEN/FLEX TOUCH 100 UNITS/ML 3ML SQ SCH (09:00)
[2019-08-21] MEDS: INSULIN ASPART 100 UNITS/ML 3 ML PEN SC SCH ×4 (09:12→20:59)
[2019-08-21] MEDS: INSULIN DETEMIR FLEXPEN/FLEX TOUCH 100 UNITS/ML 3ML SC SCH ×2 (09:15→20:58)
[2019-08-21] MEDS: lamoTRIgine 100 MG TAB PO SCH (09:16)
[2019-08-21] MEDS: METOPROLOL SUCC 50MG EXT REL TAB PO SCH ×2 (09:17→20:57)
[2019-08-21] MEDS: VENLAFAXINE HCL XR 150 MG CAPXR PO SCH (09:17)
[2019-08-21] MEDS: GABAPENTIN 600 MG TAB PO SCH ×2 (09:18→20:57)
[2019-08-21] MEDS: lamoTRIgine 25 MG TAB PO SCH ×2 (09:19→20:57)
[2019-08-21] MEDS: PANTOprazole 40 MG TAB PO SCH ×2 (09:20→20:57)
[2019-08-21] MEDS: ISOSORBIDE MONO EXTENDED REL 60 MG TABCR PO SCH (09:20)
[2019-08-21] MEDS: MoRPHine SULFATE CR 15 MG TABCR PO SCH ×2 (09:23→20:57)
[2019-08-21] MEDS: clonazePAM 0.5 MG TAB PO PRN (09:26)
--- NOTE | 2019-08-21 10:42 | Pharmacy Report ---
Glycemic Control Consultation - Date of Service August 21, 2019 - Scope Scope: Glycemic Pharmacist consulted by Dr Foster on 08/20/19 for glycemic control and to write orders per [facility] inpatient glycemic control protocol - Objective Weight: 98.1 kg Accuchecks BSG (last 24hrs): 08/20/19 08/20/19 08/21/19 15:37 20:45 07:03 Glucose 167 H 123 H POC Glucose 152 H 08/21/19 08:08 Glucose POC Glucose 123 H Laboratory Data (last 24hrs): 08/20/19 08/21/19 15:37 07:03 Potassium 4.1 3.6 Carbon Dioxide 28 30 Anion Gap 6.0 6.0 Creatinine 0.98 1.01 Est Cr Clr Drug Dosing 66.1 63.5 HbA1c: Hemoglobin A1c 8.0 % (4.5-5.6) H 08/21/19 07:03 - Recent Pertinent Medications Outpatient Anti-diabetic Regimen: * Trulicity (dulaglutide) 1.5mg SQ * Levemir 25 units SQ QAM 20 units HS * Metformin 1000mg PO BID * A1c = 8.0 % 08/21/19 Risk Factors for Insulin Resistance: * Infection: Invanz * Diet: Type 2 DM - Assessment & Plan Assessment & Plan: ASSESSMENT: * 69 yo female admitted with 1-2 weeks of confusion and weakness. Hx multiple UTIs, UTI and R Pyelo. Hx ESBL in the past. * Will hold metformin and Trulicity at this time, continue Lantus BID and use Novolog for CF/CR. PLAN FOR INPATIENT GLYCEMIC CONTROL: * Holding outpatient metformin & dulaglutide * Basal insulin * Lantus 20-25 units SQ BID * Bolus insulin * NovoLog per scale ACHS or Q6hrs while NPO * Goal Range: Low 110 mg/dL - High 140 mg/dL * Correction Factor: 20 mg/dL/unit * Nutritional / Prandial insulin per carb ratio of 1 unit per 7 grams CHO consumed * Please note that the plan above was derived based on current level of insulin resistance and hospital stress. These recommendations are appropriate for inpatient admission only. Plan of care upon discharge will need to be reassessed to avoid potential outpatient hypo/hyperglycemia. Thank you.
--- NOTE | 2019-08-21 15:30 | Hospitalist Progress Note ---
Date of Service August 21, 2019 Assessment & Plan (1) Acute UTI: (2) Pyelonephritis: (1) Urinary tract infection, recurrent Possible pyelonephritis --Afebrile, urinary symptoms improving --Urine culture: E. coli, sensitivities pending --Continue ertapenem, based on previous UTI E. coli ESBL episodes --Infectious disease service consulted (2) CAD (coronary artery disease): Denies cardiac symptoms (3) Chronic diastolic CHF (congestive heart failure): Chronic diastolic CHF with known moderate Euvolemic, continue to monitor Continue metoprolol (4) Hypertension: Stable Continue metoprolol, Imdur (5) DM type 2 (diabetes mellitus, type 2): Most recent Hba1c 7 Outpatient regimen of metformin 1 g twice daily, Trulicity injection weekly Continue Lantus, NovoLog (6) GONZALEZ (nonalcoholic steatohepatitis): Cirrhosis with portal hypertensive gastropathy Stable (7) Hypothyroidism: Continue levothyroxine (8) Portal hypertensive gastropathy: (9) Gastroparesis: (11) Lixtywd-Pipjv-Hucxe disease: Continue gabapentin She has bilateral lower extremity braces (12) Bipolar disorder: Continue Lamictal and Effexor (13) Anxiety: Takes clonazepam 0.5 mg twice daily as needed (14) Chronic pain syndrome: Continue morphine sulfate 50 mg every 12 hours, oxycodone 5 mg 3 times daily as needed (15) DVT prophylaxis: Heparin subcutaneous daily Disposition Lives with daughter at home May need IV antibiotics on discharge Admission and Anticipated Discharge Date Admission Date: August 20, 2019 Subjective Follow-up for UTI, E. coli Seen resting in bed, comfortable, not in distress States she feels improved today compared to yesterday Still having mild dysuria, right-sided flank discomfort Denies fevers or chills No shortness of breath, chest pain, palpitations, dizziness, nausea No other symptoms Review of Systems Review of Systems: All systems reviewed & are unremarkable except as noted in HPI & below Physical Exam Physical Exam: General- oriented x 2, not in distress, speaks in sentences with no effort or accessory muscle use Head- atraumatic Eyes- PERRL, EOMI, anicteric ENT- oropharynx clear Neck- supple, no JVD, no adenopathy, no thyromegaly; carotids +2/2, no bruits appreciated Lungs- clear to auscultation bilaterally, no rales/wheezes Heart- normal rate, regular rhythm; no murmur, no gallop, no rub appreciated Abdomen- normal bowel sounds, nondistended, soft, nontender, no masses or hepatosplenomegaly Extremities-trace pretibial edema, no calf tenderness; peripheral pulses intact Neuro- alert, oriented x 3; CN 2-12 grossly intact; motor 5/5 bilaterally;sensation 100% on all extremities; no other gross focal neurologic deficits Skin- warm & dry Results & Data ([facility]) Vital Signs (Past 12 Hours) Vital Signs Temp Pulse Resp BP Pulse Ox 08/21/19 14:57 36.6 C 60 18 118/80 96 08/21/19 07:45 36.7 C 65 17 114/76 96 Laboratory Results Laboratory Results - last 24 hr 08/20/19 08/21/19 08/21/19 20:45 07:03 07:03 WBC 6.03 RBC 5.00 Hgb 12.5 Hct 37.8 MCV 75.6 L MCH 25.0 MCHC 33.1 RDW Std Deviation 46.8 H RDW Coeff of Guillermo 16.9 H Plt Count 116 L MPV 9.8 Immature Gran % (Auto) 0.3 Neut % (Auto) 53.8 Lymph % (Auto) 33.2 Walker % (Auto) 9.0 Eos % (Auto) 3.2 Baso % (Auto) 0.5 Immature Gran # (Auto) 0.02 Neut # (Auto) 3.25 Lymph # (Auto) 2.00 Walker # (Auto) 0.54 Eos # (Auto) 0.19 Baso # (Auto) 0.03 Sodium 137 Potassium 3.6 Chloride 101 Carbon Dioxide 30 Anion Gap 6.0 BUN 12 Creatinine 1.01 Est Cr Clr Drug Dosing 63.5 Est GFR ( Amer) 65.3 Est GFR (Non-Af Amer) 56.4 BUN/Creatinine Ratio 11.8 Glucose 123 H POC Glucose 152 H Estimat Average Glucose Hemoglobin A1c Calcium 9.4 Total Bilirubin 0.8 AST 23 ALT 18 Alkaline Phosphatase 127 H Ammonia Total Protein 6.9 Albumin 3.4 Globulin 3.5 Albumin/Globulin Ratio 1.0 08/21/19 08/21/19 08/21/19 07:03 07:03 08:08 WBC RBC Hgb Hct MCV MCH MCHC RDW Std Deviation RDW Coeff of Guillermo Plt Count MPV Immature Gran % (Auto) Neut % (Auto) Lymph % (Auto) Walker % (Auto) Eos % (Auto) Baso % (Auto) Immature Gran # (Auto) Neut # (Auto) Lymph # (Auto) Walker # (Auto) Eos # (Auto) Baso # (Auto) Sodium Potassium Chloride Carbon Dioxide Anion Gap BUN Creatinine Est Cr Clr Drug Dosing Est GFR ( Amer) Est GFR (Non-Af Amer) BUN/Creatinine Ratio Glucose POC Glucose 123 H Estimat Average Glucose 183 Hemoglobin A1c 8.0 H Calcium Total Bilirubin AST ALT Alkaline Phosphatase Ammonia 14.8 Total Protein Albumin Globulin Albumin/Globulin Ratio 08/21/19 08/21/19 12:34 16:47 WBC RBC Hgb Hct MCV MCH MCHC RDW Std Deviation RDW Coeff of Guillermo Plt Count MPV Immature Gran % (Auto) Neut % (Auto) Lymph % (Auto) Walker % (Auto) Eos % (Auto) Baso % (Auto) Immature Gran # (Auto) Neut # (Auto) Lymph # (Auto) Walker # (Auto) Eos # (Auto) Baso # (Auto) Sodium Potassium Chloride Carbon Dioxide Anion Gap BUN Creatinine Est Cr Clr Drug Dosing Est GFR ( Amer) Est GFR (Non-Af Amer) BUN/Creatinine Ratio Glucose POC Glucose 87 103 H Estimat Average Glucose Hemoglobin A1c Calcium Total Bilirubin AST ALT Alkaline Phosphatase Ammonia Total Protein Albumin Globulin Albumin/Globulin Ratio
[2019-08-21] MEDS: ERTAPENEM SODIUM 1,000 MG in SODIUM CHLORIDE 0.9% 50 ML IV SCH (16:34)
[2019-08-21] MEDS: ACETAMINOPHEN 325 MG TAB PO PRN (17:46)
[2019-08-21] MEDS: SPIRONOLACTONE 25 MG TAB PO SCH (19:05)
[2019-08-21] MEDS: ARIPIprazole 1 MG/ML ORAL SOLN 150 ML BTL PO SCH (20:56)
[2019-08-21] MEDS: MONTELUKAST SODIUM 10 MG TABLET PO SCH (20:56)
[2019-08-21] MEDS: MAGNESIUM OXIDE 400 MG TAB PO SCH (20:57)
[2019-08-21] MEDS: OXYBUTYNIN CHLORIDE XL 5 MG TABCR PO SCH (20:57)
[2019-08-21] MEDS: LACTOBACILLUS ACIDOPHILUS (FLORANEX) TAB PO SCH (20:57)
[2019-08-21] MEDS: ATORVASTATIN 40 MG TAB PO SCH (20:57)
[2019-08-21] MEDS: FAMOTIDINE 40 MG TABLET PO SCH (20:57)
[2019-08-21] MEDS: TRAZODONE HCL 50 MG TAB PO SCH (20:58)
[2019-08-22] MEDS: HEPARIN SOD 5,000 UNIT/0.5 ML VIAL SQ SCH ×3 (06:15→21:23)
[2019-08-22] MEDS: LEVOTHYROXINE SODIUM 88 MCG TABLET PO SCH (06:15)
--- NOTE | 2019-08-22 07:29 | Infectious Disease Consult ---
Date of Consultation August 22, 2019 Assessment & Plan (1) Pyelonephritis: continue ertapenem pending final urine cultures. blood cultures negative, would give 14 days abx. History of Present Illness Attending Physician: Leroy Guevara MD pt admitted with abd pain, somewhat improved. no f.c, wbc 6, creat 1. UA in ER >30 wbc +2 bacteria. culture growing E. coli, she has h/o ESBL+ infection, was started on ertapenem, ID consulted for abx approval. tolerating well. no f/c. no cp, sob, cough. +abd pain, but improved. no n/v/d. Blood cultures negative. ct showed right perinephric edema. Allergies Allergy/AdvReac Type Severity Reaction Status Date / Time propoxyphene Allergy Mild Rash Verified 08/20/19 15:07 fentanyl AdvReac Intermediate PANIC Verified 08/20/19 20:21 WANTS TO RUN AND AGGRESSIVE zolpidem AdvReac Intermediate confusion Verified 08/20/19 15:07 methocarbamol AdvReac Mild DELERIUM Verified 08/20/19 15:07 Home Medications Home Medications Medication Instructions Recorded Confirmed Type albuterol sulfate [Ventolin HFA] 2 puff INHALATION QID PRN 04/27/18 08/20/19 History aripiprazole 2 mg PO HS 04/27/18 08/20/19 History atorvastatin 80 mg PO HS 04/27/18 08/20/19 History benzonatate 100 mg PO TID PRN 04/27/18 08/20/19 History clonazepam 0.5 mg PO BID PRN 04/27/18 08/20/19 History dicyclomine 10 mg PO QID PRN 04/27/18 08/20/19 History dulaglutide 0.5 ml SUBCUT WK 04/27/18 08/20/19 History ergocalciferol (vitamin D2) 50,000 units PO WK 04/27/18 08/20/19 History famotidine 40 mg PO HS 04/27/18 08/20/19 History gabapentin 600 mg PO BID 04/27/18 08/20/19 History insulin detemir U-100 20 units SUBCUT HS 04/27/18 08/20/19 History insulin detemir U-100 25 units SUBCUT QAM 04/27/18 08/20/19 History lactulose 30 ml PO BID PRN 04/27/18 08/20/19 History lamotrigine 25 mg PO QAM 04/27/18 08/20/19 History lamotrigine 50 mg PO HS 04/27/18 08/20/19 History lamotrigine 100 mg PO QAM 04/27/18 08/20/19 History levothyroxine 88 mcg PO QAM 04/27/18 08/20/19 History magnesium oxide 400 mg PO HS 04/27/18 08/20/19 History metformin 1,000 mg PO BID 04/27/18 08/20/19 History metoprolol succinate 50 mg PO BID 04/27/18 08/20/19 History nitroglycerin [Nitrostat] 0.4 mg SUBLINGUAL DIRECTED PRN 04/27/18 08/20/19 History omeprazole 20 mg PO BID 04/27/18 08/20/19 History ondansetron HCl 8 mg PO Q8H PRN 04/27/18 08/20/19 History oxycodone 5 - 10 mg PO TID PRN MDD 20mg 04/27/18 08/20/19 History trazodone 150 mg PO HS 04/27/18 08/20/19 History venlafaxine 150 mg PO QAM 04/27/18 08/20/19 History isosorbide mononitrate 60 mg PO QAM 09/03/18 08/20/19 History spironolactone 50 mg PO BID 09/03/18 08/20/19 History torsemide 20 mg PO QAM 09/03/18 08/20/19 History morphine 15 mg PO Q12H 11/27/18 08/20/19 History montelukast 10 mg PO DAILY 06/11/19 08/20/19 History oxybutynin chloride 10 mg PO PM 06/11/19 08/20/19 History loratadine 10 mg PO DAILY PRN 08/20/19 08/20/19 History Patient History Medical History Anxiety (Chronic) Bipolar disorder (Chronic) CAD (coronary artery disease) (Chronic) History of multiple PCI's to the RCA with subsequent CABG x1 in 2010 x 1 vessel Most recent cardiac testing-negative DSE in December 2017 Follows w/ Dr. Blackwell and Dr. Lucas Srewtpg-Jnwlf-Xhwkc disease (Chronic) follows w/ Dr. Lemus Chronic diastolic CHF (congestive heart failure) (Chronic) Depression DM type 2 (diabetes mellitus, type 2) (Chronic) IDDM Dyslipidemia (Chronic) Gastroparesis (Chronic) GERD (gastroesophageal reflux disease) Hypertension (Chronic) Hypothyroidism (Chronic) Irregular heart beat follows Dr. 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 Moyaok Osteoarthritis Portal hypertensive gastropathy (Chronic) Spondylosis Surgical History History of appendectomy (Chronic) History of back surgery (Chronic) sacral area History of cardiac cath multiple - most recent - 2 years ago @ [place] - FOR CP History of cataract surgery History of colonoscopy History of esophagogastroduodenoscopy (EGD) History of heart artery stent 2 yrs ago @ [facility] > unsure of how many stents > follows Dr. Lucas History of total right knee replacement (Chronic) Hx of cholecystectomy (Chronic) S/P CABG x 1 (Chronic) 2010 - single vessel S/P CARLOS (total abdominal hysterectomy) (Chronic) Family History Father Coronary heart disease Brother Coronary heart disease Father Diabetes Mother Diabetes Social History Preferred Language: Estonian Communication Ability: Effective Stave Cutter Required: No Beliefs That Will Affect Care: None Current Living Situation: Family Other Information That Helps Us Care for You: No Feels Safe at Home: Yes Safety Concerns: Feels Safe At This Time Smoking Status: Unknown if ever smoked Hx Alcohol Use: No Hx Substance Use: No Review of Systems Review of Systems: All systems reviewed & are unremarkable except as noted in HPI & below Physical Exam Constitutional: WD/WN, vitals as above Eyes: PERRL, conjunctivae normal, anicteric sclerae ENMT: external ear and nose normal, oropharynx normal Neck: normal visual inspection Respiratory: normal respiratory effort, lungs clear to auscultation Cardiovascular: RRR, no murmur, no edema Gastrointestinal (Abdomen): normal bowel sounds, soft, nontender, no hepatosplenomegaly Musculoskeletal: no cyanosis or clubbing, extremities motor strength 5/5 Skin: no rashes, warm and dry Psychiatric: A+Ox3, euthymic affect Results & Data ([facility]) Vital Signs (Past 12 Hours) Vital Signs Temp Pulse Resp BP Pulse Ox 08/22/19 07:16 36.3 C L 55 L 18 111/75 97 08/21/19 23:00 36.4 C L 57 L 18 127/77 93 Laboratory Results Microbiology 08/20/19 15:28 Blood Aerobic Blood Culture - Preliminary No growth in Aerobic bottle after 24 hours. 08/20/19 15:28 Blood Anaerobic Blood Culture - Preliminary No growth in Anaerobic bottle after 24 hours. 08/20/19 15:37 Blood Aerobic Blood Culture - Preliminary No growth in Aerobic bottle after 24 hours. 08/20/19 15:37 Blood Anaerobic Blood Culture - Preliminary No growth in Anaerobic bottle after 24 hours. 08/20/19 15:15 Urine,Clean Catch Urine Culture - Preliminary Escherichia coli PG Care Time/CCT Total # of Minutes Spent Total Time Spent with Patient: Total time spent is greater than 50% in coordination of care (as documented) at patient's floor/unit and/or counseling patient: Coding Level of Care Code 18637 Inpt Consult Level 4 Diagnoses Pyelonephritis N12
[2019-08-22] MEDS: INSULIN DETEMIR FLEXPEN/FLEX TOUCH 100 UNITS/ML 3ML SC SCH ×2 (08:40→21:36)
[2019-08-22] MEDS: INSULIN ASPART 100 UNITS/ML 3 ML PEN SC SCH ×4 (08:40→21:36)
[2019-08-22] MEDS: METOPROLOL SUCC 50MG EXT REL TAB PO SCH ×3 (08:41→21:28)
[2019-08-22] MEDS: ISOSORBIDE MONO EXTENDED REL 60 MG TABCR PO SCH (08:44)
[2019-08-22] MEDS: VENLAFAXINE HCL XR 150 MG CAPXR PO SCH (08:44)
[2019-08-22] MEDS: lamoTRIgine 25 MG TAB PO SCH ×2 (08:45→21:33)
[2019-08-22] MEDS: MoRPHine SULFATE CR 15 MG TABCR PO SCH ×2 (08:45→21:43)
[2019-08-22] MEDS: GABAPENTIN 600 MG TAB PO SCH ×2 (08:45→21:27)
[2019-08-22] MEDS: lamoTRIgine 100 MG TAB PO SCH (08:45)
[2019-08-22] MEDS: SPIRONOLACTONE 25 MG TAB PO SCH ×2 (08:45→21:24)
[2019-08-22] MEDS: PANTOprazole 40 MG TAB PO SCH ×2 (08:46→21:26)
[2019-08-22] MEDS: LACTOBACILLUS ACIDOPHILUS (FLORANEX) TAB PO SCH ×4 (08:46→21:20)
--- NOTE | 2019-08-22 10:06 | Pharmacy Report ---
Pharmacy Glycemic Short Note 2 - Date of Service August 22, 2019 - Glycemic Short BSG Results (Last 24 hours): 08/21/19 08/21/19 08/21/19 12:34 16:47 20:20 POC Glucose 87 103 H 168 H 08/22/19 08/22/19 08:02 08:03 POC Glucose 64 L* 74 OUTPATIENT ANTIDIABETIC REGIMEN: * Trulicity (dulaglutide) 1.5mg SQ * Levemir 25 units SQ QAM 20 units HS * Metformin 1000mg PO BID * A1c = 8.0 % 08/21/19 Risk Factors for Insulin Resistance: * Infection: Invanz * Diet: Type 2 DM ASSESSMENT: 08/22/19 * Patient had 47 units of insulin yesterday, 40 basal. * Basal decreased and CF/CR loosened yesterday afternoon. * Fasting blood sugar 64mg/dl this morning - decrease basal further * All other blood sugars at goal, no further changes at this time. 08/21/19 * 69 yo female admitted with 1-2 weeks of confusion and weakness. Hx multiple UTIs, UTI and R Pyelo. Hx ESBL in the past. * Will hold metformin and Trulicity at this time, continue Lantus BID and use Novolog for CF/CR. PLAN FOR INPATIENT GLYCEMIC CONTROL: * Holding outpatient metformin & dulaglutide * Basal insulin - decrease * Levemir 15 units SQ BID (20 units for BSG > 200mg/dl) * Bolus insulin * NovoLog per scale ACHS or Q6hrs while NPO * Goal Range: Low 110 mg/dL - High 140 mg/dL * loosened as of yesterday afternoon: Correction Factor: 30 mg/dL/unit * loosened as of yesterday afternoon: Nutritional / Prandial insulin per carb ratio of 1 unit per 10 grams CHO consumed
--- NOTE | 2019-08-22 15:09 | Hospitalist Progress Note ---
Date of Service August 22, 2019 Assessment & Plan (1) Acute UTI: (2) Pyelonephritis: (1) Urinary tract infection, recurrent Possible pyelonephritis --Afebrile, urinary symptoms continues to improve --Urine culture: E. coli, ESBL --Continue ertapenem --Infectious disease service consulted (2) CAD (coronary artery disease): Denies cardiac symptoms (3) Chronic diastolic CHF (congestive heart failure): Chronic diastolic CHF with known moderate Euvolemic, continue to monitor Continue metoprolol Continue Aldactone (4) Hypertension: Stable Continue metoprolol, Imdur (5) DM type 2 (diabetes mellitus, type 2): Most recent Hba1c 7 Outpatient regimen of metformin 1 g twice daily, Trulicity injection weekly Continue Lantus, NovoLog (6) GONZALEZ (nonalcoholic steatohepatitis): Cirrhosis with portal hypertensive gastropathy Stable continue Lactulose (7) Hypothyroidism: Continue levothyroxine (8) Portal hypertensive gastropathy: (9) Gastroparesis: (11) Vnkteqn-Lxvpn-Pocwl disease: Continue gabapentin check bl LE to r/o DVT (12) Bipolar disorder: Continue Lamictal and Effexor (13) Anxiety: Takes clonazepam 0.5 mg twice daily as needed (14) Chronic pain syndrome: Continue morphine sulfate 50 mg every 12 hours, oxycodone 5 mg 3 times daily as needed (15) DVT prophylaxis: Heparin subcutaneous daily Disposition Lives with daughter at home May need IV antibiotics on discharge Admission and Anticipated Discharge Date Admission Date: August 20, 2019 Subjective ff up for e coli uti seen resting in bed, comfortable daughter at bedside visiting states she feels improved today minimal r flank pain no dysuria, hematuria, abdominal pain ,nausea occasionally confused as per [facility] staff, patient's daughter confirms she gets episodes of confusion especially towards the evening denies other symptoms Review of Systems Review of Systems: All systems reviewed & are unremarkable except as noted in HPI & below Physical Exam Physical Exam: General- oriented x 3, not in distress, speaks in sentences with no effort or accessory muscle use Eyes- anicteric Neck- no JVD Lungs- clear breath sounds bilaterally, no rales/wheezes Heart- normal rate, regular rhythm; no murmurs Abdomen- normal bowel sounds, nondistended, soft, very mild r CVA tenderness Extremities- no pretibial edema, no calf tenderness Neuro- alert, oriented x 3; no gross focal neurologic deficits Skin- warm & dry Results & Data ([facility]) Vital Signs (Past 12 Hours) Vital Signs Temp Pulse Resp BP Pulse Ox 08/22/19 14:52 36.5 C 67 18 110/76 98 08/22/19 07:16 36.3 C L 55 L 18 111/75 97 Laboratory Results Laboratory Results - last 24 hr 08/21/19 08/21/19 08/22/19 16:47 20:20 08:02 POC Glucose 103 H 168 H 64 L* Ammonia 08/22/19 08/22/19 08/22/19 08:03 11:40 11:49 POC Glucose 74 104 H Ammonia 28.5
[2019-08-22] MEDS: ERTAPENEM SODIUM 1,000 MG in SODIUM CHLORIDE 0.9% 50 ML IV SCH (15:39)
[2019-08-22] MEDS: ACETAMINOPHEN 325 MG TAB PO PRN (15:47)
--- NOTE | 2019-08-22 17:15 | Ultrasound Report ---
ULTRASOUND BILATERAL LOWER EXTREMITY VENOUS CLINICAL HISTORY: Lower extremity edema. COMPARISON STUDY: Bilateral lower extremity venous ultrasound dated 10/12/2015. TECHNIQUE: Real-time, grayscale, and color Doppler sonography of the deep veins of the right and left lower extremity was performed from the inguinal crease to the calf. Compression and augmentation wer e utilized. FINDINGS: There is no sonographic evidence of deep venous thrombosis identified in the right or left lower extremity. The common femoral, superficial femoral, and popliteal veins are patent and normally compressible bilaterally. The greater saphenous vein and the profunda femoris vein at the junction w ith the common femoral vein are clear in both legs. The visualized calf veins are patent bilaterally. IMPRESSION: There is no sonographic evidence of deep venous thrombosis identified in the right or lef t lower extremity. ACT 112: Negative or not required by law. Electronically signed by: Berto Snow M.D. 08/22/2019 5:14 PM
[2019-08-22] MEDS: FAMOTIDINE 40 MG TABLET PO SCH (21:25)
[2019-08-22] MEDS: ARIPIprazole 1 MG/ML ORAL SOLN 150 ML BTL PO SCH (21:25)
[2019-08-22] MEDS: ATORVASTATIN 40 MG TAB PO SCH (21:27)
[2019-08-22] MEDS: MONTELUKAST SODIUM 10 MG TABLET PO SCH (21:31)
[2019-08-22] MEDS: OXYBUTYNIN CHLORIDE XL 5 MG TABCR PO SCH (21:32)
[2019-08-22] MEDS: TRAZODONE HCL 50 MG TAB PO SCH (21:34)
[2019-08-22] MEDS: MAGNESIUM OXIDE 400 MG TAB PO SCH (21:35)
[2019-08-22] MEDS: LACTULOSE SYRUP 30 GM/45 ML UDP PO SCH (21:35)
[2019-08-22] MEDS: clonazePAM 0.5 MG TAB PO PRN (21:53)
[2019-08-23] MEDS: HEPARIN SOD 5,000 UNIT/0.5 ML VIAL SQ SCH ×3 (06:05→20:56)
[2019-08-23] MEDS: LEVOTHYROXINE SODIUM 88 MCG TABLET PO SCH (06:06)
[2019-08-23] MEDS: ACETAMINOPHEN 325 MG TAB PO PRN (06:12)
[2019-08-23] MEDS: MoRPHine SULFATE CR 15 MG TABCR PO SCH ×2 (08:38→20:52)
[2019-08-23] MEDS: SPIRONOLACTONE 25 MG TAB PO SCH ×2 (08:39→20:52)
[2019-08-23] MEDS: LACTULOSE SYRUP 30 GM/45 ML UDP PO SCH ×2 (08:39→20:53)
[2019-08-23] MEDS: lamoTRIgine 25 MG TAB PO SCH ×2 (08:39→20:54)
[2019-08-23] MEDS: METOPROLOL SUCC 50MG EXT REL TAB PO SCH ×2 (08:39→20:56)
[2019-08-23] MEDS: LACTOBACILLUS ACIDOPHILUS (FLORANEX) TAB PO SCH ×4 (08:39→20:54)
[2019-08-23] MEDS: lamoTRIgine 100 MG TAB PO SCH (08:39)
[2019-08-23] MEDS: ISOSORBIDE MONO EXTENDED REL 60 MG TABCR PO SCH (08:40)
[2019-08-23] MEDS: PANTOprazole 40 MG TAB PO SCH ×2 (08:40→20:52)
[2019-08-23] MEDS: GABAPENTIN 600 MG TAB PO SCH ×2 (08:40→20:53)
[2019-08-23] MEDS: VENLAFAXINE HCL XR 150 MG CAPXR PO SCH (08:42)
[2019-08-23] MEDS: INSULIN DETEMIR FLEXPEN/FLEX TOUCH 100 UNITS/ML 3ML SC SCH ×2 (08:44→20:55)
[2019-08-23] MEDS: INSULIN ASPART 100 UNITS/ML 3 ML PEN SC SCH ×4 (08:45→20:55)
--- NOTE | 2019-08-23 09:18 | Pharmacy Report ---
Pharmacy Glycemic Short Note 2 - Date of Service August 23, 2019 - Glycemic Short BSG Results (Last 24 hours): 08/22/19 08/22/19 08/22/19 11:49 17:20 19:51 POC Glucose 104 H 101 H 98 08/23/19 08:00 POC Glucose 134 H OUTPATIENT ANTIDIABETIC REGIMEN: * Trulicity (dulaglutide) 1.5mg SQ * Levemir 25 units SQ QAM 20 units HS * Metformin 1000mg PO BID * A1c = 8.0 % 08/21/19 Risk Factors for Insulin Resistance: * Infection: Invanz * Diet: Type 2 DM ASSESSMENT: * BSGs yesterday - ranging 64-104 mg/dL * Patient received 36 units of insulin yesterday * Novolog loosened on 08/21 - will continue loosened Novolog * Fasting BSG this morning of 134 mg/dL * Continues on ertapenem for complicated UTI (ESBL E.coli) PLAN FOR INPATIENT GLYCEMIC CONTROL: * Holding outpatient metformin & dulaglutide * Basal insulin - continue * Levemir 15 units SQ BID (20 units for BSG > 200mg/dl) * Bolus insulin * NovoLog per scale ACHS or Q6hrs while NPO * Goal Range: Low 110 mg/dL - High 140 mg/dL * loosened as of yesterday afternoon: Correction Factor: 30 mg/dL/unit * loosened as of yesterday afternoon: Nutritional / Prandial insulin per carb ratio of 1 unit per 10 grams CHO consumed
[2019-08-23] MEDS: clonazePAM 0.5 MG TAB PO PRN (09:26)
--- NOTE | 2019-08-23 09:29 | Infectious Disease Progress Nt ---
Date of Service August 23, 2019 Assessment & Plan (1) Pyelonephritis: continue ertapenem blood cultures negative, would give 14 days abx. Admission and Anticipated Discharge Date Admission Date: August 20, 2019 Subjective urine culture growing ESBL+ E. coli, sensitive to Ertapenem, tolerating abx well. afebirle. Results & Data ([facility]) Vital Signs (Past 12 Hours) Vital Signs Temp Pulse Resp BP Pulse Ox 08/23/19 07:36 36.3 C L 58 L 16 109/70 94 08/23/19 07:09 36.3 C L 59 L 18 113/72 98 08/22/19 23:05 36.3 C L 58 L 18 107/68 95 Laboratory Results Microbiology 08/20/19 15:28 Blood Aerobic Blood Culture - Preliminary No growth in Aerobic bottle after 48 hours. 08/20/19 15:28 Blood Anaerobic Blood Culture - Preliminary No growth in Anaerobic bottle after 48 hours. 08/20/19 15:37 Blood Aerobic Blood Culture - Preliminary No growth in Aerobic bottle after 48 hours. 08/20/19 15:37 Blood Anaerobic Blood Culture - Preliminary No growth in Anaerobic bottle after 48 hours. 08/20/19 15:15 Urine,Clean Catch Urine Culture - Final Escherichia coli ESBL PG Care Time/CCT Total # of Minutes Spent Total Time Spent with Patient: Total time spent is greater than 50% in coordination of care (as documented) at patient's floor/unit and/or counseling patient: Coding Level of Care Code 75012 Subseq Hosp Care Lvl 1 Diagnoses Pyelonephritis N12
[2019-08-23] MEDS: VENLAFAXINE HCL XR 75 MG CAPXR PO SCH (11:18)
[2019-08-23] MEDS: ERTAPENEM SODIUM 1,000 MG in SODIUM CHLORIDE 0.9% 50 ML IV SCH (16:00)
--- NOTE | 2019-08-23 19:15 | Hospitalist Progress Note ---
Date of Service August 23, 2019 Assessment & Plan (1) Acute UTI: (2) Pyelonephritis: (1) Acute UTI: (2) Pyelonephritis: (1) Urinary tract infection, recurrent Possible pyelonephritis -- remains Afebrile, urinary symptoms continues to improve --Urine culture: E. coli, ESBL --Continue ertapenem --Infectious disease service consulted--> recommend total of 14 days IV abx US guided periph IV site requested (2) CAD (coronary artery disease): Denies cardiac symptoms (3) Chronic diastolic CHF (congestive heart failure): Chronic diastolic CHF with known moderate Euvolemic, continue to monitor Continue metoprolol Continue Aldactone (4) Hypertension: Stable Continue metoprolol, Imdur (5) DM type 2 (diabetes mellitus, type 2): Most recent Hba1c 7 Outpatient regimen of metformin 1 g twice daily, Trulicity injection weekly Continue Lantus, NovoLog (6) GONZALEZ (nonalcoholic steatohepatitis): Cirrhosis with portal hypertensive gastropathy Stable continue Lactulose (7) Hypothyroidism: Continue levothyroxine (8) Portal hypertensive gastropathy: (9) Gastroparesis: (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 check bl LE to r/o DVT: negative (12) Bipolar disorder: Continue Lamictal and Effexor (13) Anxiety: Takes clonazepam 0.5 mg twice daily as needed (14) Chronic pain syndrome: Continue morphine sulfate 50 mg every 12 hours, oxycodone 5 mg 3 times daily as needed (15) DVT prophylaxis: Heparin subcutaneous daily Disposition Lives with daughter at home needs 14 d IV Ertapenem Admission and Anticipated Discharge Date Admission Date: August 20, 2019 Subjective ff up for ESBL UTI seen sitting up in bed, having dinner allowed me to evaluate her oriented , answers questions appropriately has mild dysuria, right flank pain, improving denies nausea no other symptoms Review of Systems Review of Systems: All systems reviewed & are unremarkable except as noted in HPI & below Physical Exam Physical Exam: General- oriented x 2, not in distress, speaks in sentences with no effort or accessory muscle use Eyes- anicteric Neck- no JVD Lungs- clear BS BL, no rales/wheezing Heart- normal rate, regular rhythm; no murmurs Abdomen- normal bowel sounds, nondistended, soft, nontender Extremities- no pretibial edema, no calf tenderness Neuro- alert, oriented x 2; no gross focal neurologic deficits Skin- warm & dry Results & Data ([facility]) Vital Signs (Past 12 Hours) Vital Signs Temp Pulse Resp BP Pulse Ox 08/23/19 15:30 36.4 C L 60 19 113/72 98 08/23/19 07:36 36.3 C L 58 L 16 109/70 94 Laboratory Results Laboratory Results - last 24 hr 08/22/19 08/23/19 08/23/19 19:51 08:00 11:49 POC Glucose 98 134 H 124 H 08/23/19 16:25 POC Glucose 117 H
[2019-08-23] MEDS: TRAZODONE HCL 50 MG TAB PO SCH (20:52)
[2019-08-23] MEDS: MONTELUKAST SODIUM 10 MG TABLET PO SCH (20:52)
[2019-08-23] MEDS: FAMOTIDINE 40 MG TABLET PO SCH (20:52)
[2019-08-23] MEDS: ATORVASTATIN 40 MG TAB PO SCH (20:52)
[2019-08-23] MEDS: MAGNESIUM OXIDE 400 MG TAB PO SCH (20:52)
[2019-08-23] MEDS: OXYBUTYNIN CHLORIDE XL 5 MG TABCR PO SCH (20:53)
[2019-08-23] MEDS: ARIPIprazole 1 MG/ML ORAL SOLN 150 ML BTL PO SCH (20:53)
[2019-08-24] MEDS: LEVOTHYROXINE SODIUM 88 MCG TABLET PO SCH (05:35)
[2019-08-24] MEDS: HEPARIN SOD 5,000 UNIT/0.5 ML VIAL SQ SCH ×2 (05:35→14:34)
[2019-08-24] MEDS: clonazePAM 0.5 MG TAB PO PRN (08:57)
[2019-08-24] MEDS: MoRPHine SULFATE CR 15 MG TABCR PO SCH (08:57)
[2019-08-24] MEDS: VENLAFAXINE HCL XR 150 MG CAPXR PO SCH (08:58)
[2019-08-24] MEDS: VENLAFAXINE HCL XR 75 MG CAPXR PO SCH (08:58)
[2019-08-24] MEDS: LACTOBACILLUS ACIDOPHILUS (FLORANEX) TAB PO SCH ×2 (08:58→12:43)
[2019-08-24] MEDS: METOPROLOL SUCC 50MG EXT REL TAB PO SCH (08:59)
[2019-08-24] MEDS: ISOSORBIDE MONO EXTENDED REL 60 MG TABCR PO SCH (08:59)
[2019-08-24] MEDS: SPIRONOLACTONE 25 MG TAB PO SCH (09:00)
[2019-08-24] MEDS: lamoTRIgine 25 MG TAB PO SCH (09:01)
[2019-08-24] MEDS: PANTOprazole 40 MG TAB PO SCH (09:01)
[2019-08-24] MEDS: GABAPENTIN 600 MG TAB PO SCH (09:01)
[2019-08-24] MEDS: INSULIN ASPART 100 UNITS/ML 3 ML PEN SC SCH ×2 (09:04→12:44)
[2019-08-24] MEDS: LACTULOSE SYRUP 30 GM/45 ML UDP PO SCH (09:05)
[2019-08-24] MEDS: INSULIN DETEMIR FLEXPEN/FLEX TOUCH 100 UNITS/ML 3ML SC SCH (09:06)
[2019-08-24] MEDS: lamoTRIgine 100 MG TAB PO SCH (09:06)
--- NOTE | 2019-08-24 13:59 | Hospitalist Progress Note ---
Date of Service August 24, 2019 Assessment & Plan (1) Acute UTI: (2) Pyelonephritis: (1) Acute UTI: (2) Pyelonephritis: -- remains Afebrile, urinary symptoms continues to improve --Urine culture: E. coli, ESBL --Continue ertapenem --Infectious disease service consulted--> recommend total of 14 days IV abx US guided periph IV site placed -- continue 10 more days of IV Ertapenem at [facility] to complete 14 days of treatment ff up with PCP 1 week after discharge from [facility] refer to Urologist for recurrent UTI (2) CAD (coronary artery disease): Denies cardiac symptoms (3) Chronic diastolic CHF (congestive heart failure): Chronic diastolic CHF with known moderate Euvolemic Continue metoprolol Continue Aldactone (4) Hypertension: Stable Continue metoprolol, Imdur (5) DM type 2 (diabetes mellitus, type 2): Most recent Hba1c 7 resume Outpatient regimen of Insulin Detemir, metformin 1 g twice daily, Trulicity injection weekly (6) GONZALEZ (nonalcoholic steatohepatitis): Cirrhosis with portal hypertensive gastropathy Stable continue Lactulose BID (7) Hypothyroidism: Continue levothyroxine (8) Portal hypertensive gastropathy: (9) Gastroparesis: no GI symptoms (11) Myjdbxe-Zgmbr-Pblug disease: Continue gabapentin bl LE Doppler: negative for DVT (12) Bipolar disorder: Continue Lamictal and Effexor (13) Anxiety: Takes clonazepam 0.5 mg twice daily as needed (14) Chronic pain syndrome: Continue morphine sulfate 50 mg every 12 hours, oxycodone 5 mg 3 times daily as needed (15) DVT prophylaxis: was given Heparin subcutaneous daily Disposition d/c to [facility] ff up with PCP 1 week after discharge from [facility] Admission and Anticipated Discharge Date Admission Date: August 20, 2019 Subjective ff up for UTI, E coli ESBL seen resting in bed, comfortable states she feels fine overall no dysuria, polyuria, flank pain no chest pain, dyspnea, dizziness, palpitations, nausea no other symptoms states she is ready for discharge to [facility] today Review of Systems Review of Systems: All systems reviewed & are unremarkable except as noted in HPI & below Physical Exam Physical Exam: General- oriented x 2, not in distress, speaks in sentences with no effort or accessory muscle use Eyes- anicteric Neck- no JVD Lungs- clear BS BL no rales no wheezing Heart- normal rate, regular rhythm; no murmurs Abdomen- normal bowel sounds, nondistended, soft, nontender Extremities- no pretibial edema, no calf tenderness Neuro- alert, oriented x 3; no gross focal neurologic deficits Skin- warm & dry Results & Data ([facility]) Vital Signs (Past 12 Hours) Vital Signs Temp Pulse Resp BP Pulse Ox 08/24/19 07:29 36.5 C 61 16 115/70 97 Laboratory Results Laboratory Results - last 24 hr 08/23/19 08/23/19 08/24/19 16:25 20:18 07:51 POC Glucose 117 H 92 113 H 08/24/19 11:33 POC Glucose 91
--- NOTE | 2019-08-24 14:33 | Discharge Summary ---
Date of Service August 24, 2019 Admission HPI Per Admitting Provider 69 yo female c PMH below comes in with 1-2 weeks of confusion and weakness. She has frequent bouts of UTIs, 3-4 times per year. Daughter very frustrated with bounce back between [facility] at home and PCP office. Not sure who to call etc. Today she was found to have a UTI and R Pyelo. Mult bouts of ESBL in the past. Dtr was told that her mom needs IV abx whenever she gets UTIs. Patient lives alone, but Dtr close by. She doesn't eat or drink as much as she should. CT Revealed mild right-sided perinephric edema, and mild right-sided periureteral edema with subtle uroepithelial enhancement. Likely diagnostic considerations include ascending urinary tract infection, versus passed calculus. Correlation with clinical findings and urinalysis is recommended. Admission Exam Per Admitting Provider Gen-AAO x 2, NAD, febrile Head-NCAT, EOMI, PERRLA, Anicteric Sclera, No Posterior Pharyngeal Erythema, edentulous Neck-Supple, No JVD, No Thyromegaly, No Masses, No LAD, No Bruits Lungs-Clear to Auscultation Bilaterally, No Rales, No Rhonchi, No Wheezing, No Crepitus Chest-No S4, +S1, +S2, No S3, No Murmurs, No Rubs, No Gallops, No Ectopy Abdomen-Soft, Bowel Sounds Present, Non Tender, Non Distended, No Hepatomegaly, No Splenomegaly, No Palpable Masses, No Rebound, No Rigidity, No Guarding Musculoskeletal-Full Range of Motion Bilaterally, Right CVAT Extremities-No Cyanosis, No Clubbing, No Edema Nuero-Cranial Nerves II-XII grossly intact, Motor WNL, DTRs WNL, Strength WNL, Non Focal Psych-Normal Mood Principal Diagnosis E COLI ESBL, URINARY TRACT INFECTION, PYELONEPHROTIS Discharge Exam General- oriented x 2, not in distress, speaks in sentences with no effort or accessory muscle use Eyes- anicteric Neck- no JVD Lungs- clear BS BL no rales no wheezing Heart- normal rate, regular rhythm; no murmurs Abdomen- normal bowel sounds, nondistended, soft, nontender Extremities- no pretibial edema, no calf tenderness Neuro- alert, oriented x 3; no gross focal neurologic deficits Skin- warm & dry Discharge Data Allergies Allergy/AdvReac Type Severity Reaction Status Date / Time propoxyphene Allergy Mild Rash Verified 08/20/19 15:07 fentanyl AdvReac Intermediate PANIC Verified 08/20/19 20:21 WANTS TO RUN AND AGGRESSIVE zolpidem AdvReac Intermediate confusion Verified 08/20/19 15:07 methocarbamol AdvReac Mild DELERIUM Verified 08/20/19 15:07 Consultations 08/20/19 17:47 ED Decision to Admit Stat 08/20/19 20:44 Consult Infectious Diseases Routine 08/21/19 18:05 Consult Infectious Diseases Routine Ordered Studies 08/20/19 15:00 CT head/brain wo con Stat No intra or extra-axial mass lesions are visualized. There is no CT evidence of acute cortical infarction. There is no evidence of midline shift. There is no acute hemorrhage. No calvarial fractures are visualized. There are minor white matter hypodensities likely on a small vessel basis. There is no evidence of pathologic ventricular dilatation. There is no evidence of acute sinusitis. There are persistent extensive calcifications involving the distal left vertebral artery IMPRESSION: No acute intracranial findings 08/20/19 15:01 CT abd pelvis IV con only Stat COMPARISON STUDY: November 2017, January 2017. TECHNIQUE: The patient was scanned in a dynamic helical fashion during intravenous administration of 93 cc of Optiray 320. A dose lowering technique was utilized adhering to the principles of ALARA. CT DOSE: 1482.97 mGy.cm FINDINGS: Lower chest: There are coronary artery calcifications present. There are mild dependent atelectatic changes. There are no significant pleural effusions. Liver: There is mild intrahepatic biliary ductal dilatation, likely related to a prior cholecystectomy. No focal hepatic masses are visualized. The portal and hepatic veins appear patent. Gallbladder: Surgically absent Spleen: The spleen is mildly enlarged measuring 13.9 cm. This remain stable. Pancreas: Unremarkable. Adrenal glands: Unremarkable. Kidneys: There is mild right-sided perinephric edema and mild right-sided periureteral edema. No ureteral calculi are visualized. There is minimal fullness the right renal collecting system. There is subtle uroepithelial enhancement. Correlate clinically for evidence of a passed calculus or urinary tract infection. Bowel: There are no transition zone to indicate bowel obstruction. By history the appendix is surgically absent. There is no acute diverticulitis. Peritoneum: There is no intraperitoneal free air or abdominal ascites. Vasculature: The abdominal aorta is normal in course and caliber. Adenopathy: None. Pelvic viscera: The uterus is surgically absent. There is a droplet of air within the bladder likely iatrogenic. Skeletal structures: There are moderately advanced multilevel degenerative salazar nges within the cervical spine. IMPRESSION: 1. No evidence of bowel obstruction. No evidence of free air 2. Mild splenomegaly 3. Surgically absent appendix, uterus, and gallbladder 4. Droplet of air within the bladder likely iatrogenic 5. Mild right-sided perinephric edema, and mild right-sided periureteral edema with subtle uroepithelial enhancement. Likely diagnostic considerations include ascending urinary tract infection, versus passed calculus. Correlation with clinical findings and urinalysis is recommended. 08/22/19 15:09 US venous doppler LE BI Routine IMPRESSION: There is no sonographic evidence of deep venous thrombosis identified in the right or left lower extremity. Hospital Course (1) Acute UTI: (2) Pyelonephritis: (1) Acute UTI: (2) Pyelonephritis: -- recurrent 3rd episode -- remained Afebrile, urinary symptoms resolved --Urine culture: E. coli, ESBL --Infectious disease service consulted--> recommend total of 14 days IV abx US guided periph IV site placed -- continue 10 more days of IV Ertapenem at to complete 14 days of treatment ff up with PCP 1 week after discharge from refer to Urologist for recurrent UTI (2) CAD (coronary artery disease): Denies cardiac symptoms (3) Chronic diastolic CHF (congestive heart failure): Chronic diastolic CHF with known moderate Euvolemic Continue metoprolol Continue Aldactone (4) Hypertension: Stable Continue metoprolol, Imdur (5) DM type 2 (diabetes mellitus, type 2): Most recent Hba1c 7 resume Outpatient regimen of Insulin Detemir, metformin 1 g twice daily, Trulicity injection weekly (6) GONZALEZ (nonalcoholic steatohepatitis): Cirrhosis with portal hypertensive gastropathy Stable continue Lactulose BID (7) Hypothyroidism: Continue levothyroxine (8) Portal hypertensive gastropathy: (9) Gastroparesis: no GI symptoms (11) Xouzflt-Envgz-Ujzhd disease: Continue gabapentin bl LE Doppler: negative for DVT (12) Bipolar disorder: Continue Lamictal and Effexor (13) Anxiety: Takes clonazepam 0.5 mg twice daily as needed (14) Chronic pain syndrome: Continue morphine sulfate 50 mg every 12 hours, oxycodone 5 mg 3 times daily as needed (15) DVT prophylaxis: was given Heparin subcutaneous daily Disposition d/c to [facility] ff up with PCP 1 week after discharge from Total Time Total Time Spent Total Time Spent (In Minutes): 45 minutes Discharge Plan Discharge Items Patient Disposition: Transfer Inpatient Rehab Fac Reason For Visit: PYELO/ACUTE UTI Discharge Diagnosis: URINARY TRACT INFECTION, PYELONEPHRITIS, E COLI ESBL Activity: Resume your previous activity Driving/Machine Use: NO DRIVING Non-emergency contact: Primary Care Provider Call non-emergency contact if: you have any medication questions, your symptoms worsen, your pain is not controlled, your pain is worsening, your pain is unusual for you, your pain is concerning for you and you have a fever Follow-up/Referrals: Brian Domínguez MD [Primary Care Provider] - Diet: Carb Consistent or DM2 and Heart Healthy Addtl Attending Provider Instructions: PATIENT NEEDS TO CONTINUE ERTAPENEM IV X 10 MORE DAYS TO COMPLETE 14 DAYS OF ANTIBIOTIC REGIMEN. PLEASE REFER TO ACCOMPANYING HOSPITAL DISCHARGE SUMMARY FOR FULL DETAILS. Pending Studies at Discharge: Yes Studies:: FOLLOW UP FINAL RESULTS OF BLOOD CULTURES DRAWN 08/20/19 AT [facility] Stand-Alone Forms: My [facility] Skilled Items Patient informed of condition?: Yes DNR: No Discharge Level of Care: Acute rehab Communicable Disease: No (BUT PATIENT HAS ESBL E COLI UTI) Discharge Prognosis: Stable Lines: Peripheral IV Urinary Catheter: No Medications and DC Order Prescriptions: New ertapenem 1 gram recon soln 1 gm IV DAILY 10 Days Qty: 10 RF: 0 venlafaxine 75 mg Capsule,Extended Release 24hr 75 mg PO QAM 30 Days Qty: 30 RF: 0 Culturelle 10 billion cell capsule 1 cap PO DAILY Qty: 30 RF: 2 Continued metformin 500 mg tablet 1,000 mg PO BID RF: 0 atorvastatin 80 mg tablet 80 mg PO HS RF: 0 gabapentin 600 mg tablet 600 mg PO BID RF: 0 metoprolol succinate 50 mg tablet extended release 24 hr 50 mg PO BID RF: 0 ondansetron HCl 8 mg tablet 8 mg PO Q8H PRN (Reason: Nausea) RF: 0 famotidine 40 mg tablet 40 mg PO HS RF: 0 clonazepam 0.5 mg tablet 0.5 mg PO BID PRN (Reason: Anxiety) RF: 0 venlafaxine 150 mg capsule,extended release 24hr 150 mg PO QAM RF: 0 lamotrigine 25 mg tablet 25 mg PO QAM RF: 0 lamotrigine 25 mg tablet 50 mg PO HS RF: 0 levothyroxine 88 mcg tablet 88 mcg PO QAM RF: 0 trazodone 150 mg tablet 150 mg PO HS RF: 0 omeprazole 20 mg capsule,delayed release(DR/EC) 20 mg PO BID RF: 0 dicyclomine 10 mg capsule 10 mg PO QID PRN (Reason: Abdominal Pain) RF: 0 lamotrigine 100 mg tablet 100 mg PO QAM RF: 0 oxycodone 5 mg tablet 5 - 10 mg PO TID MDD 20mg PRN (Reason: Pain) RF: 0 aripiprazole 2 mg tablet 2 mg PO HS RF: 0 insulin detemir U-100 100 unit/mL (3 mL) insulin pen 25 units subcut QAM RF: 0 insulin detemir U-100 100 unit/mL (3 mL) insulin pen 20 units subcut HS RF: 0 dulaglutide 0.75 mg/0.5 mL pen injector 0.5 ml subcut WK RF: 0 benzonatate 100 mg Capsule 100 mg PO TID PRN (Reason: Cough) RF: 0 nitroglycerin [Nitrostat] 0.4 mg Tablet, Sublingual 0.4 mg Sublingual DIRECTED PRN (Reason: Chest Pain) RF: 0 ergocalciferol (vitamin D2) 50,000 unit Capsule 50,000 units PO WK RF: 0 albuterol sulfate [Ventolin HFA] 90 mcg/actuation Hfa Aerosol Inhaler 2 puff INHALATION QID PRN (Reason: Shortness Of Breath Or Wheezing) RF: 0 magnesium oxide 400 mg Capsule 400 mg PO HS RF: 0 morphine 15 mg Tablet,Oral Only,Ext.Rel.12 Hr 15 mg PO Q12H RF: 0 loratadine 10 mg Tablet 10 mg PO DAILY PRN (Reason: Allergy Symptoms) RF: 0 isosorbide mononitrate 60 mg tablet extended release 24 hr 60 mg PO QAM RF: 0 torsemide 20 mg tablet 20 mg PO QAM RF: 0 spironolactone 100 mg tablet 50 mg PO BID RF: 0 oxybutynin chloride 10 mg Tablet Extended Release 24hr 10 mg PO PM RF: 0 montelukast 10 mg Tablet 10 mg PO DAILY RF: 0 Changed lactulose 10 gram/15 mL (15 mL) Solution 30 ml PO BID Qty: 0 RF: 0 Discharge Orders: Discharge Order (Routine); Ordered 08/24/19 Ordered By: Leroy Guevara Admission Data Admit Date/Time: 08/20/19 18:30 Attending Provider: Leroy Guevara Admit Provider: Terrence Foster Primary Care Provider: Brian Domínguez Other Providers: Terrence Foster ; Andie Tran ; [facility]
[2019-08-24] MEDS: ERTAPENEM SODIUM 1,000 MG in SODIUM CHLORIDE 0.9% 50 ML IV SCH (15:42)
[2019-08-26] MEDS ORDERED: ERGOCALCIFEROL 50,000 UNITS CAP PO SCH (09:00)
== END 2019-08-24 17:01 | DRG 689 ==
LOC: ED 14:10 → SUATTDRO 18:30 → 4W 18:30

== ENCOUNTER 2019-09-15 15:10 | Inpatient (IN) ==
[2019-09-15] MEDS ORDERED: SODIUM CHLORIDE 0.9% 1000ML 1,000 ML IV SCH (15:30)
[2019-09-15 15:59] LABS: Basophils # (auto) 0.02 K/uL (0-0.2); Basophils % (auto) 0.2 %; Hematocrit (blood only) 33.5 % (37-47); Immature Granulocytes # (auto) 0.05 K/uL (0.00-0.02); Immature Granulocytes % (auto) 0.4 %; Lymphocytes # (auto) 1.42 K/uL (1.2-3.4); Lymphocytes % (auto) 11.3 %; Mean Corpuscular Hemoglobin 25.2 pg (25-34); Mean Corpuscular Hgb Conc 32.8 g/dL (32-36); Mean Corpuscular Volume 76.8 fL (80-100); Monocytes # (auto) 0.85 K/uL (0.11-0.59); Monocytes % (auto) 6.7 %; Neutrophils # (auto) 10.28 K/uL (1.4-6.5); Neutrophils % (auto) 81.4 %; Platelet Count 120 K/uL (130-400); RDW Coefficient of Variation 17.7 % (11.5-14.5); RDW Standard Deviation 49.4 fL (36.4-46.3); Red Blood Count 4.36 M/uL (4.2-5.4); White Blood Count 12.62 K/uL (4.8-10.8)
[2019-09-15] MEDS ORDERED: IOVERSOL 100ml IV PRN (16:08)
[2019-09-15 16:10] LABS: iSTAT Creatinine 0.9 mg/dl (0.6-1.3); iSTAT Hemoglobin 10.9 g/dl (12.0-16.0); iSTAT Ionized Calcium 1.12 mmol/l (1.12-1.32); iSTAT Potassium 3.8 mmol/L (3.3-5.0)
--- NOTE | 2019-09-15 16:23 | CT Scan Report ---
CT abd pelvis IV con only CT DOSE: 1369.45 mGy.cm HISTORY: Confusion. Pain. Nausea. flank pain, h/o UTI/pyelo, confusion TECHNIQUE: Multiaxial CT images of the abdomen and pelvis were performed following the use of intrave nous contrast. A dose lowering technique was utilized adhering to the principles of ALARA. COMPARISON STUDY: 08/20/2019 FINDINGS: Interval development of a small parenchymal infiltrate right base. Persistent moderate splenomegaly. Kidneys are improved in overall appearance with a more uniform enha ncement pattern and diminished perinephric and periureteral infiltrative change. Bowel pattern suggests fecal stasis. Bladder is midline. No significant free fluid within the pelvic cul-de-sac. IMPRESSION: 1. Improved right urinary tract with no significant residual pyelonephritis by CT criteria. 2. Interval development of a small parenchymal infiltrate right base. 3. Colonic fecal stasis. ACT 112: Negative or not required by law. The above report was generated using voice recognition software. It may contain grammatical, syntax or spelling errors. Electronically signed by: Tony Rubi M.D. 09/15/2019 4:22 PM
--- NOTE | 2019-09-15 16:27 | Electrocardiogram Report ---
Test Reason : Blood Pressure : / mmHG Vent. Rate : 076 BPM Atrial Rate : 076 BPM P-R Int : 174 ms QRS Dur : 096 ms QT Int : 372 ms P-R-T Axes : 078 -37 091 degrees QTc Int : 418 ms Poor data quality, interpretation may be adversely affected Normal sinus rhythm with sinus arrhythmia Left axis deviation T-wave inversion in Anterior leads , consider ischemia Possible Old Inferior infarct Abnormal ECG When compared with ECG of 20-AUG-2019 15:15, Inverted T waves have replaced nonspecific T wave abnormality in Anterior leads Confirmed by Ramon Mccarthy ([id number]) on 09/15/2019 4:26:45 PM Referred By: REFERRED SELF Confirmed By:Ramon Mccarthy
[2019-09-15 16:35] LABS: Alanine Aminotransferase 17 U/L (12-78); Albumin Globulin Ratio 0.8 (0.9-2); Alkaline Phosphatase 103 U/L (45-117); Aspartate Aminotransferase 25 U/L (15-37); BUN Creatinine Ratio 14.8 (10-20); Bilirubin,Total 1.3 mg/dl (0.2-1); Blood Urea Nitrogen 15 mg/dl (7-18); Calcium 9.1 mg/dl (8.5-10.1); Carbon Dioxide 22 mmol/L (21-32); Chloride 99 mmol/L (98-107); Creatinine Clr Calc Pharmacy 62.5 ml/min; Est GFR (African American) 65.3; Est GFR (Non-African American) 56.4; Globulin 3.8 gm/dl (2.5-4.0); Glucose 188 mg/dl (70-99); Potassium 4.1 mmol/L (3.5-5.1); Sodium 130 mmol/L (136-145); Total Protein 6.8 gm/dl (6.4-8.2); Troponin I < 0.015 ng/ml (0-0.045)
--- NOTE | 2019-09-15 16:38 | XRay Report ---
XR chest 1V portable CLINICAL HISTORY: weakness dyspnea COMPARISON STUDY: 08/20/2019 FINDINGS: Prior median sternotomy. Poor inspiratory volumes. No focal infiltrate. Diaphragms are smoo th. IMPRESSION: No acute process. ACT 112: Negative or not required by law. The above report was generated using voice recognition software. It may contain grammatical, syntax or spelling errors. Electronically signed by: Tony Rubi M.D. 09/15/2019 4:36 PM
[2019-09-15 17:25] LABS: Appearance Urine Clear (Clear); Bacteria Urine Automated Negative (Negative); Bilirubin Urine Negative (Negative); Blood Urine Negative (Negative); Cast Urine Automated 0 /lpf (0-5); Color Urine Yellow; Glucose Urine UA Negative (Negative); Ketones Urine Negative (Negative); Leukocyte Esterase Urine 2+ (Negative); Nitrite Urine Negative (Negative); Protein Urine Negative (Negative); RBC Urine Automated 0-4 /hpf (0-4); Specific Gravity Urine > 1.045 (1.000-1.030); Urobilinogen Urine Positive (Negative); WBC Urine Automated >30 /hpf (0-5)
[2019-09-15] MEDS ORDERED: IMIPENEM/CILASTATIN CONSULT ACTIVE PRN ×2 (17:36→21:04)
[2019-09-15] MEDS ORDERED: VANCOMYCIN HCL 2,000 MG in SODIUM CHLORIDE 0.9% 500 ML IV ONE (17:36)
[2019-09-15] MEDS ORDERED: IMIPENEM/CILASTATIN SODIUM 500 MG in DEXTROSE 5% 100 ML IV STA (17:36)
[2019-09-15] MEDS ORDERED: VANCOMYCIN CONSULT ACTIVE PRN (17:36)
[2019-09-15] MEDS ORDERED: ONDANSETRON INJ 2 MG/ML 2 ML VIAL IV STA (18:37)
[2019-09-15] MEDS ORDERED: ACETAMINOPHEN 325 MG TAB PO STA (18:37)
[2019-09-15] MEDS ORDERED: SODIUM CHLORIDE 0.9% 1000ML 500 ML IV ONE (18:37)
--- NOTE | 2019-09-15 18:37 | Emergency Department Note ---
Entered by Les Foster acting as a scribe for History of Present Illness General Chief complaint: Altered Mental Status Stated complaint: CONFUSION, AMS Time Seen by Provider: 09/15/19 15:16 Source: patient Limitations: no limitations History of Present Illness Onset (ago): day(s) (few days) Location: head Pain Consistency: + constant Maximum Pain Intensity: 7 Quality: + constant Associated symptoms: + denies other symptoms (burning with urination, blood in urine, blood in stool, falls, ) and + other (incontinence, warm, going to bathroom more frequently); no cough The patient is a 69 year-old white female w/ PMHx anxiety, bipolar disorder, CAD, CHF, GONZALEZ, moderate aortic stenosis, osteoarthritis, spondylosis, HTN, hyperthyroidism, hx of appendectomy, hx of cardiac cath, hx of EGD, hx of heart artery stent, hx of cholecystectomy, s/p CABG x 1, s/p CARLOS, who presents to the ED w/ CC of generalized pain beginning a few days ago. The patient states she has pain everywhere. She states she has been having incontinence, and states it is mostly urinary incontinence. She states she has been going to the bathroom more frequently. She states she has been feeling warm. She notes she recently got out of [facility], and states she finished her course of antibiotics. She states she has nausea. She states her appetite has not been good. The patient denies having cough, burning with urination, blood in urine, blood in stool, and recent falls. Home Medications Home Medications Medication Instructions Recorded Confirmed Type albuterol sulfate [Ventolin HFA] 2 puff INHALATION QID PRN 04/27/18 09/15/19 H istory aripiprazole 2 mg PO HS 04/27/18 09/15/19 History atorvastatin 80 mg PO HS 04/27/18 09/15/19 History benzonatate 100 mg PO TID PRN 04/27/18 09/15/19 History clonazepam 0.5 mg PO BID PRN 04/27/18 09/15/19 History dicyclomine 10 mg PO QID PRN 04/27/18 09/15/19 History dulaglutide 0.5 ml SUBCUT WK 04/27/18 09/15/19 History ergocalciferol (vitamin D2) 50,000 units PO WK 04/27/18 09/15/19 History famotidine 40 mg PO HS 04/27/18 09/15/19 History gabapentin 600 mg PO BID 04/27/18 09/15/19 History lamotrigine 25 mg PO BID 04/27/18 09/15/19 History lamotrigine 100 mg PO QAM 04/27/18 09/15/19 History levothyroxine 88 mcg PO QAM 04/27/18 09/15/19 History magnesium oxide 400 mg PO HS 04/27/18 09/15/19 History metformin 1,000 mg PO BID 04/27/18 09/15/19 History nitroglycerin [Nitrostat] 0.4 mg SUBLINGUAL DIRECTED PRN 04/27/18 09/15/19 History omeprazole 20 mg PO BID 04/27/18 09/15/19 History ondansetron HCl 8 mg PO Q8H PRN 04/27/18 09/15/19 History oxycodone 5 - 10 mg PO TID PRN MDD 20mg 04/27/18 09/15/19 History trazodone 150 mg PO HS 04/27/18 09/15/19 History isosorbide mononitrate 60 mg PO QAM 09/03/18 09/15/19 History torsemide 20 mg PO QAM 09/03/18 09/15/19 History morphine 15 mg PO Q12H 11/27/18 09/15/19 History montelukast 10 mg PO HS 06/11/19 09/15/19 History oxybutynin chloride 10 mg PO HS 06/11/19 09/15/19 History loratadine 10 mg PO DAILY PRN 08/20/19 09/15/19 History lactulose 30 ml PO BID #0 ml 08/24/19 09/15/19 Rx metoprolol succinate 25 mg PO BID 09/15/19 09/15/19 History polyethylene glycol 3350 [Miralax] 17 g PO QDL 09/15/19 09/15/19 History spironolactone 50 mg PO BID 09/15/19 09/15/19 History venlafaxine 225 mg PO QAM 09/15/19 09/15/19 History Allergies Allergy/AdvReac Type Severity Reaction Status Date / Time propoxyphene Allergy Mild Rash Verified 09/15/19 17:31 fentanyl AdvReac Intermediate PANIC Verified 09/15/19 17:31 WANTS TO RUN AND AGGRESSIVE zolpidem AdvReac Intermediate confusion Verified 09/15/19 17:31 methocarbamol AdvReac Mild DELERIUM Verified 09/15/19 17:31 Past Med/Surg History Medical History Anxiety (Chronic) Bipolar disorder (Chronic) CAD (coronary artery disease) (Chronic) History of multiple PCI's to the RCA with subsequent CABG x1 in 2010 x 1 vessel Most recent cardiac testing-negative DSE in December 2017 Follows w/ Dr. Blackwell and Dr. Lucas Rirernh-Oekzn-Kyssy disease (Chronic) follows w/ Dr. Lemus Chronic diastolic CHF (congestive heart failure) (Chronic) Depression DM type 2 (diabetes mellitus, type 2) (Chronic) IDDM Dyslipidemia (Chronic) Gastroparesis (Chronic) GERD (gastroesophageal reflux disease) Hypertension (Chronic) Hypothyroidism (Chronic) Irregular heart beat follows Dr. 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 Rosenthal Osteoarthritis Portal hypertensive gastropathy (Chronic) Spondylosis Surgical History History of appendectomy (Chronic) History of back surgery (Chronic) sacral area History of cardiac cath multiple - most recent - 2 years ago @ [place] - FOR [facility] History of cataract surgery History of colonoscopy History of esophagogastroduodenoscopy (EGD) History of heart artery stent 2 yrs ago @ [facility] > unsure of how many stents > follows Dr. Lucas History of total right knee replacement (Chronic) Hx of cholecystectomy (Chronic) S/P CABG x 1 (Chronic) 2010 - single vessel S/P CARLOS (total abdominal hysterectomy) (Chronic) Family History Father Coronary heart disease Brother Coronary heart disease Father Diabetes Mother Diabetes Social History Preferred Language: Telugu Communication Ability: Effective Pet Sitting Required: No Beliefs That Will Affect Care: None Current Living Situation: Family Feels Safe at Home: No Is there a partner from a previous relationship who is making you feel unsafe now?: No Smoking Status: Never smoker Second Hand Exposure: Yes ; Hx Alcohol Use: No Hx Substance Use: No Review of Systems See HPI for pertinent positives & negatives. and A total of 10 systems reviewed and were otherwise negative Physical Exam Vital Signs Vital Signs - 24 hr 09/15/19 15:11 09/15/19 15:13 09/15/19 15:42 Temperature 37.3 C Temperature Source Oral Pulse Rate 81 93 H 81 Pulse Rate from SpO2 Sensor 83 Pulse Rhythm Regular Respiratory Rate 18 24 18 Respiratory Effort / Characteristics Non-Labored Spontaneous Respiratory Depth Normal Respiratory Pattern Regular Blood Pressure 138/79 138/79 Blood Pressure Mean 98 91 Pulse Oximetry 92 97 92 Oxygen Delivery Method Room Air Room Air Sepsis Recent Fever Within 48 Hours No Sepsis New/Unexplained Change in Mental Status No Sepsis Action Taken by Nursing No Action Required 09/15/19 17:08 09/15/19 17:30 09/15/19 18:00 Temperature Temperature Source Pulse Rate 76 74 73 Pulse Rate from SpO2 Sensor 77 71 72 Pulse Rhythm Respiratory Rate 16 23 14 Respiratory Effort / Characteristics Respiratory Depth Respiratory Pattern Blood Pressure 128/74 100/56 L 126/69 Blood Pressure Mean 97 82 82 Pulse Oximetry 94 95 97 Oxygen Delivery Method Room Air Room Air Sepsis Recent Fever Within 48 Hours Sepsis New/Unexplained Change in Mental Status Sepsis Action Taken by Nursing GENERAL: Well appearing, well nourished, NAD, non-toxic. EYE EXAM: Normal conjunctiva. PERRL, no anisocoria and EOM's grossly intact w/o pain. OROPHARYNX: Moist mucus membranes. Grossly normal dentition. NECK: Supple, no nuchal rigidity, no adenopathy, non-tender. no signs of meningismus. LUNGS: Clear to auscultation. Normal chest wall mechanics. HEART: NSR, no MRG. ABDOMEN: Abdomen soft, non-tender, normo-active bowel sounds, no masses, no rebound or guarding. Numerous bruising over the lower abdomen, consistent with heparin injections. BACK: Bilateral CVA TTP. SKIN: Bruising to the lower abdomen. Small abrasion to the sacral area and one small blister to the right lower back. UPPER EXTREMITIES: Upper extremities are grossly normal. LOWER EXTREMITIES: No pitting edema. No calf pain. NEURO EXAM: A&O x3, cranial nerves II-XII grossly intact, normal speech, moves all 4 extremities on command w/o issue. Course Course 1526: The patient was evaluated in room B11B, and a complete history and physi walker examination were performed. 1800: I discussed the patient's case with Alise Aiken PA-C. Dr. [facility] Hospitalist will evaluate the patient for further management Administered Medications Imipenem/Cilastatin Sodium 500 (mg/ Dextrose) 110 mls @ 100 mls/hr IV NOW STA Stop: 09/15/19 18:41 Last Admin: 09/15/19 17:58 Dose: 100 mls/hr Documented by: [id number] Ioversol (Optiray 320 100ml) 94 ml IV ONCE PRN PRN Reason: Interaction Checking Stop: 09/19/19 16:07 Last Admin: 09/15/19 16:08 Dose: 94 ml Documented by: [id number] Discontinued Medications Sodium Chloride (Nss 1000ml) 1,000 mls @ 999 mls/hr IV .Q1H1M ANGELLA Stop: 09/15/19 16:30 Last Infusion: 09/15/19 17:58 Dose: 0 mls/hr Documented by: [id number] Admin: 09/15/19 16:58 Dose: 999 mls/hr Documented by: [id number] Medical Decision Making Differential Diagnosis Differential diagnoses includes but is not limited to toxic, metabolic, infectious, traumatic, cardiac, neurologic, hematologic, psychiatric and inflammatory etiologies. Medical Records Attestation: I reviewed the patient's medical records. The patient was recently admitted and discharged on 08/24/19 for freuqent UTI and pyelonephritis. She was discharged to [facility] with 14 more days of Ertapenem. Home Medications Current Medication List: was personally reviewed by me Laboratory Data Attestation: I reviewed the patient's lab results. Result diagrams: 09/15/19 15:50 09/15/19 15:50 Lab Results 09/15/19 09/15/19 09/15/19 Range/Units 15:50 15:50 15:55 WBC 12.62 H (4.8-10.8) K/uL RBC 4.36 (4.2-5.4) M/uL Hgb 11.0 L (12.0-16.0) g/dL POC Hgb (12.0-16.0) g/dl Hct 33.5 L (37-47) % POC Hct (37-47) % MCV 76.8 L (80-100) fL MCH 25.2 (25-34) pg MCHC 32.8 (32-36) g/dL RDW Std Deviation 49.4 H (36.4-46.3) fL RDW Coeff of Guillermo 17.7 H (11.5-14.5) % Plt Count 120 L (130-400) K/uL MPV 10.0 (7.4-10.4) fL Immature Gran % (Auto) 0.4 % Neut % (Auto) 81.4 % Lymph % (Auto) 11.3 % [place] % (Auto) 6.7 % Eos % (Auto) 0.0 % Baso % (Auto) 0.2 % Immature Gran # (Auto) 0.05 H (0.00-0.02) K/uL Neut # (Auto) 10.28 H (1.4-6.5) K/uL Lymph # (Auto) 1.42 (1.2-3.4) K/uL [place] # (Auto) 0.85 H (0.11-0.59) K/uL Eos # (Auto) 0.00 (0-0.5) K/uL Baso # (Auto) 0.02 (0-0.2) K/uL POC Sodium (135-144) mmol/L Sodium 130 L (136-145) mmol/L POC Potassium (3.3-5.0) mmol/L Potassium 4.1 (3.5-5.1) mmol/L POC Chloride (101-112) mmol/L Chloride 99 (98-107) mmol/L Carbon Dioxide 22 (21-32) mmol/L POC Total CO2 (24-31) mEq/l Anion Gap 9.0 (3-11) POC Anion Gap (16-25) mmol/L POC BUN (7-18) mg/dl BUN 15 (7-18) mg/dl Creatinine 1.01 (0.6-1.2) mg/dl POC Creatinine (0.6-1.3) mg/dl Est Cr Clr Drug Dosing 62.5 ml/min Est GFR ( Amer) 65.3 Est GFR (Non-Af Amer) 56.4 BUN/Creatinine Ratio 14.8 (10-20) Glucose 188 H (70-99) mg/dl POC Glucose (other) (70-99) mg/dl Lactate 1.7 (0.4-2.0) mmol/L Calcium 9.1 (8.5-10.1) mg/dl POC Ioniz Calcium Jonathan (1.12-1.32) mmol/l Total Bilirubin 1.3 H (0.2-1) mg/dl AST 25 (15-37) U/L ALT 17 (12-78) U/L Alkaline Phosphatase 103 (45-117) U/L Ammonia (11-32) umol/L Troponin I < 0.015 (0-0.045) ng/ml Total Protein 6.8 (6.4-8.2) gm/dl Albumin 3.0 L (3.4-5.0) gm/dl Globulin 3.8 (2.5-4.0) gm/dl Albumin/Globulin Ratio 0.8 L (0.9-2) TSH 1.180 (0.300-4.500) uIu/ml Specimen Hemolysis Urine Color Urine Appearance (Clear) Urine pH (4.5-7.5) Ur Specific [place] (1.000-1.030) Urine Protein (Negative) Urine Glucose (UA) (Negative) Urine Ketones (Negative) Urine Blood (Negative) Urine Nitrite (Negative) Urine Bilirubin (Negative) Urine Urobilinogen (Negative) Ur Leukocyte Esterase (Negative) Urine WBC (Auto) (0-5) /hpf Urine RBC (Auto) (0-4) /hpf U Hyaline Cast (Auto) (0-5) /lpf U Epithel Cells (Auto) (0-5) /lpf Urine Bacteria (Auto) (Negative) 09/15/19 09/15/19 09/15/19 Range/Units 15:55 15:57 17:05 WBC (4.8-10.8) K/uL RBC (4.2-5.4) M/uL Hgb (12.0-16.0) g/dL POC Hgb 10.9 L (12.0-16.0) g/dl Hct (37-47) % POC Hct 32 L (37-47) % MCV (80-100) fL MCH (25-34) pg MCHC (32-36) g/dL RDW Std Deviation (36.4-46.3) fL RDW Coeff of Guillermo (11.5-14.5) % Plt Count (130-400) K/uL MPV (7.4-10.4) fL Immature Gran % (Auto) % Neut % (Auto) % Lymph % (Auto) % [place] % (Auto) % Eos % (Auto) % Baso % (Auto) % Immature Gran # (Auto) (0.00-0.02) K/uL Neut # (Auto) (1.4-6.5) K/uL Lymph # (Auto) (1.2-3.4) K/uL [place] # (Auto) (0.11-0.59) K/uL Eos # (Auto) (0-0.5) K/uL Baso # (Auto) (0-0.2) K/uL POC Sodium 129 L (135-144) mmol/L Sodium (136-145) mmol/L POC Potassium 3.8 (3.3-5.0) mmol/L Potassium (3.5-5.1) mmol/L POC Chloride 97 L (101-112) mmol/L Chloride (98-107) mmol/L Carbon Dioxide (21-32) mmol/L POC Total CO2 23 L (24-31) mEq/l Anion Gap (3-11) POC Anion Gap 15.0 L (16-25) mmol/L POC BUN 14 (7-18) mg/dl BUN (7-18) mg/dl Creatinine (0.6-1.2) mg/dl POC Creatinine 0.9 (0.6-1.3) mg/dl Est Cr Clr Drug Dosing ml/min Est GFR ( Amer) Est GFR (Non-Af Amer) BUN/Creatinine Ratio (10-20) Glucose (70-99) mg/dl POC Glucose (other) 194 H (70-99) mg/dl Lactate (0.4-2.0) mmol/L Calcium (8.5-10.1) mg/dl POC Ioniz Calcium Jonathan 1.12 (1.12-1.32) mmol/l Total Bilirubin (0.2-1) mg/dl AST (15-37) U/L ALT (12-78) U/L Alkaline Phosphatase (45-117) U/L Ammonia 31.0 (11-32) umol/L Troponin I (0-0.045) ng/ml Total Protein (6.4-8.2) gm/dl Albumin (3.4-5.0) gm/dl Globulin (2.5-4.0) gm/dl Albumin/Globulin Ratio (0.9-2) TSH (0.300-4.500) uIu/ml Specimen Hemolysis Urine Color Yellow Urine Appearance Clear (Clear) Urine pH 6.0 (4.5-7.5) Ur Specific [place] > 1.045 H (1.000-1.030) Urine Protein Negative (Negative) Urine Glucose (UA) Negative (Negative) Urine Ketones Negative (Negative) Urine Blood Negative (Negative) Urine Nitrite Negative (Negative) Urine Bilirubin Negative (Negative) Urine Urobilinogen Positive H (Negative) Ur Leukocyte Esterase 2+ H (Negative) Urine WBC (Auto) >30 H (0-5) /hpf Urine RBC (Auto) 0-4 (0-4) /hpf U Hyaline Cast (Auto) 0 (0-5) /lpf U Epithel Cells (Auto) 10-20 H (0-5) /lpf Urine Bacteria (Auto) Negative (Negative) Imaging Data Radiologist's Impression: Radiology results as stated below per my review and the radiologist's interpretation: XR chest 1V portable CLINICAL HISTORY: weakness dyspnea COMPARISON STUDY: 08/20/2019 FINDINGS: Prior median sternotomy. Poor inspiratory volumes. No focal infiltrate. Diaphragms are smooth. IMPRESSION: No acute process. ACT 112: Negative or not required by law. The above report was generated using voice recognition software. It may contain grammatical, syntax or spelling errors. Electronically signed by: Tony Rubi M.D. 09/15/2019 4:[address] abd pelvis IV con only CT DOSE: 1369.45 mGy.cm HISTORY: Confusion. Pain. Nausea. flank pain, h/o UTI/pyelo, confusion TECHNIQUE: Multiaxial CT images of the abdomen and pelvis were performed following the use of intravenous contrast. A dose lowering technique was utilized adhering to the principles of ALARA. COMPARISON STUDY: 08/20/2019 FINDINGS: Interval development of a small parenchymal infiltrate right base. Persistent moderate splenomegaly. Kidneys are improved in overall appearance with a more uniform enhancement pattern and diminished perinephric and periureteral infiltrative change. Bowel pattern suggests fecal stasis. Bladder is midline. No significant free fluid within the pelvic cul-de-sac. IMPRESSION: 1. Improved right urinary tract with no significant residual pyelonephritis by CT criteria. 2. Interval development of a small parenchymal infiltrate right base. 3. Colonic fecal stasis. ACT 112: Negative or not required by law. The above report was generated using voice recognition software. It may contain grammatical, syntax or spelling errors. Electronically signed by: Tony Rubi M.D. 09/15/2019 4:22 PM ECG Data Attestation: I personally reviewed and interpreted this ECG as follows: Indication: + altered mental status Rate (beats per minute): 76 Rhythm: + normal sinus ECG Intervals/blocks: + Normal QRS, + Normal QT, + Normal DC and + Normal QT-c ECG [place]: + Left axis deviation ECG ST segments: + T-wave inversions (anteriorly and high lateral) Comparison ECG Date: from (08/20/19) Change: the following changes noted (TWI are more prominent anteriorly) Blood Pressure Blood Pressure Findings: Elevated blood pressure Blood Pressure Disposition: further management by hospitalist MDM Narrative The patient is a 69 year-old white female w/ PMHx anxiety, bipolar disorder, CAD, CHF, GONZALEZ, moderate aortic stenosis, osteoarthritis, spondylosis, HTN, hyperthyroidism, hx of appendectomy, hx of cardiac cath, hx of EGD, hx of heart artery stent, hx of cholecystectomy, s/p CABG x 1, s/p CARLOS, who presents to the ED w/ CC of generalized pain beginning a few days ago. Continuous Cardiac Monitoring: An order was placed for continuous cardiac monitoring. The monitor shows a rate of 77 with a normal sinus rhythm Patient was seen and evaluated the bedside. The patient did present with concern for pain as well as hallucinations. The patient has complained of increasing urinary incontinence and frequency. The patient did a blood work completed along with a urinalysis chest x-ray and CT of the abdomen pelvis that the patient does have bilateral CVA TTP. Once the patient's daughter arrived she did relate that she was concerned about a heating pad injury and the patient does have an abrasion to the sacral area as well as one area of blistering which may be from a thermal burn. I did discuss that we would apply some antibiotic ointment and consider further treatment but would watch. Does not appear like shingles at this time. Patient CT of the abdomen pelvis does show an infiltrate at the right base of the lung. Patient does have white count with a left shift. Given the patient's recent hospitalization as well as the possibility of concomitant UTI patient was started on vancomycin and Primaxin. Upon reassessment the patient had mild headache so fluids, Tylenol and Zofran were ordered. Patient was subsequently admitted to the medicine service. Impression & Plan Pneumonia, Confusion Discharge Plan Visit Data Chief Complaint: Altered Mental Status Stated Complaint: CONFUSION, AMS ED Provider: Kirby Collins Discharge Problem: Pneumonia, Confusion Patient Disposition: Being Evaluated by Hospitalist Forms Stand Alone Forms: [facility] Prescriptions Prescriptions: No Action metformin 500 mg tablet 1,000 mg PO BID RF: 0 atorvastatin 80 mg tablet 80 mg PO HS RF: 0 gabapentin 600 mg tablet 600 mg PO BID RF: 0 ondansetron HCl 8 mg tablet 8 mg PO Q8H PRN (Reason: Nausea) RF: 0 famotidine 40 mg tablet 40 mg PO HS RF: 0 clonazepam 0.5 mg tablet 0.5 mg PO BID PRN (Reason: Anxiety) RF: 0 lamotrigine 25 mg tablet 25 mg PO BID RF: 0 levothyroxine 88 mcg tablet 88 mcg PO QAM RF: 0 trazodone 150 mg tablet 150 mg PO HS RF: 0 omeprazole 20 mg capsule,delayed release(DR/EC) 20 mg PO BID RF: 0 dicyclomine 10 mg capsule 10 mg PO QID PRN (Reason: Abdominal Pain) RF: 0 lamotrigine 100 mg tablet 100 mg PO QAM RF: 0 oxycodone 5 mg tablet 5 - 10 mg PO TID MDD 20mg PRN (Reason: Pain) RF: 0 aripiprazole 2 mg tablet 2 mg PO HS RF: 0 dulaglutide 0.75 mg/0.5 mL pen injector 0.5 ml subcut WK RF: 0 benzonatate 100 mg Capsule 100 mg PO TID PRN (Reason: Cough) RF: 0 nitroglycerin [Nitrostat] 0.4 mg Tablet, Sublingual 0.4 mg Sublingual DIRECTED PRN (Reason: Chest Pain) RF: 0 ergocalciferol (vitamin D2) 50,000 unit Capsule 50,000 units PO WK RF: 0 albuterol sulfate [Ventolin HFA] 90 mcg/actuation Hfa Aerosol Inhaler 2 puff INHALATION QID PRN (Reason: Shortness Of Breath Or Wheezing) RF: 0 magnesium oxide 400 mg Capsule 400 mg PO HS RF: 0 morphine 15 mg Tablet,Oral Only,Ext.Rel.12 Hr 15 mg PO Q12H RF: 0 loratadine 10 mg Tablet 10 mg PO DAILY PRN (Reason: Allergy Symptoms) RF: 0 lactulose 10 gram/15 mL (15 mL) Solution 30 ml PO BID Qty: 0 RF: 0 isosorbide mononitrate 60 mg tablet extended release 24 hr 60 mg PO QAM RF: 0 torsemide 20 mg tablet 20 mg PO QAM RF: 0 oxybutynin chloride 10 mg Tablet Extended Release 24hr 10 mg PO HS RF: 0 montelukast 10 mg Tablet 10 mg PO HS RF: 0 metoprolol succinate 25 mg tablet extended release 24 hr 25 mg PO BID RF: 0 polyethylene glycol 3350 [Miralax] 17 gram/dose Powder 17 g PO QDL RF: 0 spironolactone 50 mg tablet 50 mg PO BID RF: 0 venlafaxine 75 mg capsule,extended release 24hr 225 mg PO QAM RF: 0 Referrals Referrals: Brian Domínguez MD [Primary Care Provider] - Discharge Problem: Pneumonia Qualifiers: Pneumonia type: due to unspecified organism Laterality: right Lung location: lower lobe of lung Qualified Code(s): J18.9 - Pneumonia, unspecified organism The scribe's documentation has been prepared under my direction and personally reviewed by me in its entirety. I confirm that the note above accurately reflects all work, treatment, procedures, and medical decision making performed by me.
--- NOTE | 2019-09-15 19:43 | History & Physical Report ---
Date of Service September 15, 2019 Assessment & Plan (1) Encephalopathy: (1) ENCEPHALOPATHY LIKELY METABOLIC, MULTIFACTORIAL Recurrent UTI Was recently completed IV ertapenem for x2 weeks duration, last dose August 26, 2019 Blood and urine cultures: Pending We will cover with IV imipenem Hepatic encephalopathy On lactulose twice daily but patient not making more than 3 bowel movements per day as per patient's daughter Will add rifaximin 550 mg twice daily Continue to monitor response Pneumonia, possible healthcare associated versus aspiration Blood cultures pending We will order sputum culture Cover with IV imipenem, doxycycline IV vancomycin given at the ER, nasal MRSA swab ordered Polypharmacy Lower gabapentin dose Lower trazodone Hold PRN oxycodone and clonazepam Monitor closely (2) CAD (coronary artery disease): Denies cardiac symptoms (3) Chronic diastolic CHF (congestive heart failure): Chronic diastolic CHF with known moderate On the dry side, hold torsemide and Aldactone Continue IV fluids, monitor volume status closely Continue metoprolol but reduce by 50% in light of low blood pressure (4) Hypertension: On the low side Reduce metoprolol to 50% Hold Imdur (5) DM type 2 (diabetes mellitus, type 2): Most recent Hba1c 7 Per patient's daughter, patient was noted to have low blood glucose levels while at [facility] Hold insulin for now, except for insulin sliding scale Monitor (6) ESPANA (nonalcoholic steatohepatitis): Cirrhosis with portal hypertensive gastropathy Management per #1 (7) Hypothyroidism: Continue levothyroxine (8) Portal hypertensive gastropathy: (9) Gastroparesis: no GI symptoms (11) Flrvjbe-Xelrd-Awujo disease: Continue gabapentin at lower dose in light of altered mental status Monitor response (12) Bipolar disorder: Continue Lamictal and Effexor (13) Anxiety: Takes clonazepam 0.5 mg twice daily as needed Hold for now (14) Chronic pain syndrome: Continue morphine sulfate 50 mg every 12 hours, Hold oxycodone 5 mg 3 times daily as needed (15) DVT prophylaxis: Hold Heparin subcutaneous till CT head rules out intracranial hemorrhage Disposition Was recently discharged from [facility] will need PT OT evaluation History of Present Illness 69-year-old female with history of recurrent UTIs, [place], CAD, CHF diastolic type, diabetes type 2, hypertension And other problems noted below presenting with altered mental status times few days. History supplemented by patient's daughter Carolyn. [facility], 2019 after being treated for ESBL E. coli UTI. Her last dose of IV ertapenem was September 03, 2019. Patient was discharged from [facility] last Friday. As per daughter, patient was noted to be weak, occasionally lethargic, and confused while at [facility]. This continued after patient transition to home. Patient was found to have fallen last Friday and also yesterday. She also was noted to have chills, and confused as well. At the ER, patient's urinalysis showed possible UTI. Abdominal CAT scan showed possible right-sided pneumonia. Ammonia level normal On exam, the patient was seen sitting up in bed, awake, alert, oriented to person and place. She reports having generalized headache but no nausea/vomiting, changes with vision or any focal neurologic deficit. Denies having chest pain, shortness of breath, cough, fever sputum production. Denies abdominal pain, does report dysuria, and right-sided flank pain. No other symptoms Primary Care Provider: Brian Domínguez MD Allergies Allergy/AdvReac Type Severity Reaction Status Date / Time propoxyphene Allergy Mild Rash Verified 09/15/19 17:31 fentanyl AdvReac Intermediate PANIC Verified 09/15/19 17:31 WANTS TO RUN AND AGGRESSIVE zolpidem AdvReac Intermediate confusion Verified 09/15/19 17:31 methocarbamol AdvReac Mild DELERIUM Verified 09/15/19 17:31 Home Medications Home Medications Medication Instructions Recorded Confirmed Type albuterol sulfate [Ventolin HFA] 2 puff INHALATION QID PRN 04/27/18 09/15/19 History aripiprazole 2 mg PO HS 04/27/18 09/15/19 History atorvastatin 80 mg PO HS 04/27/18 09/15/19 History benzonatate 100 mg PO TID PRN 04/27/18 09/15/19 History clonazepam 0.5 mg PO BID PRN 04/27/18 09/15/19 History dicyclomine 10 mg PO QID PRN 04/27/18 09/15/19 History dulaglutide 0.5 ml SUBCUT WK 04/27/18 09/15/19 History ergocalciferol (vitamin D2) 50,000 units PO WK 04/27/18 09/15/19 History famotidine 40 mg PO HS 04/27/18 09/15/19 History gabapentin 600 mg PO BID 04/27/18 09/15/19 History lamotrigine 25 mg PO BID 04/27/18 09/15/19 History lamotrigine 100 mg PO QAM 04/27/18 09/15/19 History levothyroxine 88 mcg PO QAM 04/27/18 09/15/19 History magnesium oxide 400 mg PO HS 04/27/18 09/15/19 History metformin 1,000 mg PO BID 04/27/18 09/15/19 History nitroglycerin [Nitrostat] 0.4 mg SUBLINGUAL DIRECTED PRN 04/27/18 09/15/19 History omeprazole 20 mg PO BID 04/27/18 09/15/19 History ondansetron HCl 8 mg PO Q8H PRN 04/27/18 09/15/19 History oxycodone 5 - 10 mg PO TID PRN MDD 20mg 04/27/18 09/15/19 History trazodone 150 mg PO HS 04/27/18 09/15/19 History isosorbide mononitrate 60 mg PO QAM 09/03/18 09/15/19 History torsemide 20 mg PO QAM 09/03/18 09/15/19 History morphine 15 mg PO Q12H 11/27/18 09/15/19 History montelukast 10 mg PO HS 06/11/19 09/15/19 History oxybutynin chloride 10 mg PO HS 06/11/19 09/15/19 History loratadine 10 mg PO DAILY PRN 08/20/19 09/15/19 History lactulose 30 ml PO BID #0 ml 08/24/19 09/15/19 Rx metoprolol succinate 25 mg PO BID 09/15/19 09/15/19 History polyethylene glycol 3350 [Miralax] 17 g PO QDL 09/15/19 09/15/19 History spironolactone 50 mg PO BID 09/15/19 09/15/19 History venlafaxine 225 mg PO QAM 09/15/19 09/15/19 History Past Med/Surg History Medical History Anxiety (Chronic) Bipolar disorder (Chronic) CAD (coronary artery disease) (Chronic) History of multiple PCI's to the RCA with subsequent CABG x1 in 2010 x 1 vessel Most recent cardiac testing-negative DSE in December 2017 Follows w/ Dr. Blackwell and Dr. Lucas Icknjps-Ttivb-Cffnt disease (Chronic) follows w/ Dr. Lemus Chronic diastolic CHF (congestive heart failure) (Chronic) Depression DM type 2 (diabetes mellitus, type 2) (Chronic) IDDM Dyslipidemia (Chronic) Gastroparesis (Chronic) GERD (gastroesophageal reflux disease) Hypertension (Chronic) Hypothyroidism (Chronic) Irregular heart beat follows Dr. 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 Rosenthal Osteoarthritis Portal hypertensive gastropathy (Chronic) Spondylosis Surgical History History of appendectomy (Chronic) History of back surgery (Chronic) sacral area History of cardiac cath multiple - most recent - 2 years ago @ [facility] - [facility] History of cataract surgery History of colonoscopy History of esophagogastroduodenoscopy (EGD) History of heart artery stent 2 yrs ago @ [facility] > unsure of how many stents > follows Dr. Lucas History of total right knee replacement (Chronic) Hx of cholecystectomy (Chronic) S/P CABG x 1 (Chronic) 2010 - single vessel S/P CARLOS (total abdominal hysterectomy) (Chronic) Family History Father Coronary heart disease Brother Coronary heart disease Father Diabetes Mother Diabetes Social History Preferred Language: Jordanian Communication Ability: Effective News Technical Director Required: No Beliefs That Will Affect Care: None Current Living Situation: Family Feels Safe at Home: No Is there a partner from a previous relationship who is making you feel unsafe now?: No Smoking Status: Never smoker Second Hand Exposure: Yes ; Hx Alcohol Use: No Hx Substance Use: No Review of Systems Review of Systems: All systems reviewed & are unremarkable except as noted in HPI & below Physical Exam Physical Exam: General- oriented x 2 not in distress, speaks in sentences with no effort or accessory muscle use Head- atraumatic Eyes- PERRL, EOMI, anicteric ENT- oropharynx clear Neck- supple, no JVD, no adenopathy, no thyromegaly; carotids +2/2, no bruits appreciated Lungs- clear to auscultation bilaterally, no rales/wheezes Heart- normal rate, regular rhythm; no murmur, no gallop, no rub appreciated Back-blister and areas of erythema on the right lower back No signs of infection Abdomen- normal bowel sounds, nondistended, soft, nontender, no masses or hepatosplenomegaly Positive fading ecchymosis on the lower quadrants, likely from heparin subcutaneous Extremities- no pretibial edema, no calf tenderness; peripheral pulses intact Neuro- alert, oriented x 2; CN 2-12 grossly intact; motor 5/5 bilaterally;sen sation 100% on all extremities; no other gross focal neurologic deficits Skin- warm & dry Results & Data Vital Signs (Past 12 Hours) Vital Signs Temp Pulse Resp BP Pulse Ox 09/15/19 18:31 69 22 115/66 09/15/19 18:00 73 14 126/69 97 09/15/19 17:30 74 23 100/56 L 95 09/15/19 17:08 76 16 128/74 94 09/15/19 15:42 81 18 92 09/15/19 15:13 93 H 24 138/79 97 09/15/19 15:11 37.3 C 81 18 138/79 92 Laboratory Results Laboratory Results - last 24 hr 09/15/19 09/15/19 09/15/19 15:50 15:50 15:55 WBC 12.62 H RBC 4.36 Hgb 11.0 L POC Hgb Hct 33.5 L POC Hct MCV 76.8 L MCH 25.2 MCHC 32.8 RDW Std Deviation 49.4 H RDW Coeff of Guillermo 17.7 H Plt Count 120 L MPV 10.0 Immature Gran % (Auto) 0.4 Neut % (Auto) 81.4 Lymph % (Auto) 11.3 [place] % (Auto) 6.7 Eos % (Auto) 0.0 Baso % (Auto) 0.2 Immature Gran # (Auto) 0.05 H Neut # (Auto) 10.28 H Lymph # (Auto) 1.42 [place] # (Auto) 0.85 H Eos # (Auto) 0.00 Baso # (Auto) 0.02 POC Sodium Sodium 130 L POC Potassium Potassium 4.1 POC Chloride Chloride 99 Carbon Dioxide 22 POC Total CO2 Anion Gap 9.0 POC Anion Gap POC BUN BUN 15 Creatinine 1.01 POC Creatinine Est Cr Clr Drug Dosing 62.5 Est GFR ( Amer) 65.3 Est GFR (Non-Af Amer) 56.4 BUN/Creatinine Ratio 14.8 Glucose 188 H POC Glucose (other) Lactate 1.7 Calcium 9.1 POC Ioniz Calcium Jonathan Total Bilirubin 1.3 H AST 25 ALT 17 Alkaline Phosphatase 103 Ammonia Troponin I < 0.015 Total Protein 6.8 Albumin 3.0 L Globulin 3.8 Albumin/Globulin Ratio 0.8 L TSH 1.180 Specimen Hemolysis Urine Color Urine Appearance Urine pH Ur Specific [place] Urine Protein Urine Glucose (UA) Urine Ketones Urine Blood Urine Nitrite Urine Bilirubin Urine Urobilinogen Ur Leukocyte Esterase Urine WBC (Auto) Urine RBC (Auto) U Hyaline Cast (Auto) U Epithel Cells (Auto) Urine Bacteria (Auto) 09/15/19 09/15/19 09/15/19 15:55 15:57 17:05 WBC RBC Hgb POC Hgb 10.9 L Hct POC Hct 32 L MCV MCH MCHC RDW Std Deviation RDW Coeff of Guillermo Plt Count MPV Immature Gran % (Auto) Neut % (Auto) Lymph % (Auto) [place] % (Auto) Eos % (Auto) Baso % (Auto) Immature Gran # (Auto) Neut # (Auto) Lymph # (Auto) [place] # (Auto) Eos # (Auto) Baso # (Auto) POC Sodium 129 L Sodium POC Potassium 3.8 Potassium POC Chloride 97 L Chloride Carbon Dioxide POC Total CO2 23 L Anion Gap POC Anion Gap 15.0 L POC BUN 14 BUN Creatinine POC Creatinine 0.9 Est Cr Clr Drug Dosing Est GFR ( Amer) Est GFR (Non-Af Amer) BUN/Creatinine Ratio Glucose POC Glucose (other) 194 H Lactate Calcium POC Ioniz Calcium Jonathan 1.12 Total Bilirubin AST ALT Alkaline Phosphatase Ammonia 31.0 Troponin I Total Protein Albumin Globulin Albumin/Globulin Ratio TSH Specimen Hemolysis Urine Color Yellow Urine Appearance Clear Urine pH 6.0 Ur Specific [place] > 1.045 H Urine Protein Negative Urine Glucose (UA) Negative Urine Ketones Negative Urine Blood Negative Urine Nitrite Negative Urine Bilirubin Negative Urine Urobilinogen Positive H Ur Leukocyte Esterase 2+ H Urine WBC (Auto) >30 H Urine RBC (Auto) 0-4 U Hyaline Cast (Auto) 0 U Epithel Cells (Auto) 10-20 H Urine Bacteria (Auto) Negative Code Status & VTE Plan Code Status Full code as per discussion with patient's daughter VTE Prophylaxis Plan VTE Prophylaxis will be ordered: Yes
[2019-09-15] MEDS ORDERED: ALBUTEROL HFA 8 GM INHALER INH PRN (20:53)
[2019-09-15] MEDS ORDERED: GLUCOSE 10 TABS/TUBE PO PRN (20:53)
[2019-09-15] MEDS ORDERED: GLUCAGON FOR INJ 1 MG VIAL SQ PRN (20:53)
[2019-09-15] MEDS ORDERED: GLUCOSE 40% GEL 15 GM TUBE PO PRN (20:53)
[2019-09-15] MEDS ORDERED: CARBOHYDRATES FOR HYPOGLYCEMIA PO PRN (20:53)
[2019-09-15] MEDS ORDERED: BENZONATATE 100 MG CAPSULE PO PRN (20:53)
[2019-09-15] MEDS ORDERED: DICYCLOMINE HCL 10 MG CAP PO PRN (20:53)
[2019-09-15] MEDS ORDERED: DEXTROSE 50% 50 ML SYRINGE IV PRN (20:53)
--- NOTE | 2019-09-15 21:31 | CT Scan Report ---
CT head/brain wo con CT DOSE: 537.48 mGy.cm HISTORY: Trauma S/P FALL, R/O BLEED TECHNIQUE: Multiaxial CT images of the head were performed without the use of intravenous contrast. A dose lowering technique was utilized adhering to the principles of ALARA. Comparison: 08/20/2019 Findings: The paranasal sinuses and mastoid air cells are clear. The calvarium and skull base are int act. The ventricles and sulci are within normal limits. There is no mass, hematoma, midline shift, or acute infarct. Mild age-related atrophy and chronic small vessel change. Impression: No acute intracranial abnormality. No change from the prior exam. ACT 112: Negative or not required by law. The above report was generated using voice recognition software. It may contain grammatical, syntax or spelling errors. Electronically signed by: Tony Rubi M.D. 09/15/2019 9:30 PM
[2019-09-15] MEDS: SODIUM CHLORIDE 0.9% 1000ML 1,000 ML IV SCH (21:41)
[2019-09-15] MEDS: ARIPIprazole 1 MG/ML ORAL SOLN 150 ML BTL PO SCH (21:41)
[2019-09-15] MEDS: RIFAXIMIN 550 MG TABLET PO SCH (21:42)
[2019-09-15] MEDS: DOXYCYCLINE HYCLATE 100 MG CAP PO SCH (21:42)
[2019-09-15] MEDS: ATORVASTATIN 40 MG TAB PO SCH (21:43)
[2019-09-15] MEDS: MAGNESIUM OXIDE 400 MG TAB PO SCH ×2 (21:43→21:47)
[2019-09-15] MEDS: PANTOprazole 40 MG TAB PO SCH (21:43)
[2019-09-15] MEDS: MONTELUKAST SODIUM 10 MG TABLET PO SCH (21:44)
[2019-09-15] MEDS: METOPROLOL SUCC 25MG EXT REL TAB PO SCH (21:44)
[2019-09-15] MEDS: OXYBUTYNIN CHLORIDE XL 5 MG TABCR PO SCH (21:45)
[2019-09-15] MEDS: FAMOTIDINE 40 MG TABLET PO SCH (21:45)
[2019-09-15] MEDS: GABAPENTIN 300 MG CAP PO SCH (21:45)
[2019-09-15] MEDS: lamoTRIgine 25 MG TAB PO SCH (21:46)
[2019-09-15] MEDS: INSULIN ASPART 100 UNITS/ML 3 ML PEN SC SCH (22:05)
[2019-09-15] MEDS: LACTULOSE SYRUP 20 GM/30 ML UDC PO SCH (22:07)
[2019-09-15] MEDS: TRAZODONE HCL 50 MG TAB PO SCH (22:12)
[2019-09-15] MEDS: MoRPHine SULFATE CR 15 MG TABCR PO SCH (22:13)
[2019-09-15] MEDS: IMIPENEM/CILASTATIN SODIUM 400 MG in DEXTROSE 5% 100 ML IV SCH (23:52)
[2019-09-16] MEDS: IMIPENEM/CILASTATIN SODIUM 400 MG in DEXTROSE 5% 100 ML IV SCH ×4 (05:35→23:30)
[2019-09-16] MEDS: LEVOTHYROXINE SODIUM 88 MCG TABLET PO SCH (05:35)
[2019-09-16] MEDS: INSULIN ASPART 100 UNITS/ML 3 ML PEN SC SCH ×4 (08:54→21:27)
[2019-09-16] MEDS: lamoTRIgine 25 MG TAB PO SCH ×2 (08:55→20:22)
[2019-09-16] MEDS: METOPROLOL SUCC 25MG EXT REL TAB PO SCH ×2 (08:55→20:19)
[2019-09-16] MEDS: PANTOprazole 40 MG TAB PO SCH ×2 (08:55→20:20)
[2019-09-16] MEDS: GABAPENTIN 300 MG CAP PO SCH ×2 (08:55→20:21)
[2019-09-16] MEDS: lamoTRIgine 100 MG TAB PO SCH (08:55)
[2019-09-16] MEDS: DOXYCYCLINE HYCLATE 100 MG CAP PO SCH ×2 (08:56→20:22)
[2019-09-16] MEDS: LACTULOSE SYRUP 20 GM/30 ML UDC PO SCH ×2 (08:56→20:18)
[2019-09-16] MEDS: VENLAFAXINE HCL XR 75 MG CAPXR PO SCH (08:56)
[2019-09-16] MEDS: RIFAXIMIN 550 MG TABLET PO SCH ×2 (08:56→20:19)
[2019-09-16] MEDS ORDERED: ERGOCALCIFEROL 50,000 UNITS CAP PO SCH (09:00)
[2019-09-16] MEDS: MoRPHine SULFATE CR 15 MG TABCR PO SCH ×2 (09:01→20:31)
[2019-09-16] MEDS: SODIUM CHLORIDE 0.9% 1000ML 1,000 ML IV SCH ×2 (09:33→23:24)
[2019-09-16] MEDS: ACETAMINOPHEN 500 MG TAB PO PRN (10:52)
[2019-09-16] MEDS: clonazePAM 0.5 MG TAB PO PRN ×2 (10:52→20:31)
[2019-09-16] MEDS: POLYETHYLENE (MIRALAX) 17 GM PACK PO SCH (10:53)
[2019-09-16] MEDS: ONDANSETRON INJ 2 MG/ML 2 ML VIAL IV PRN (14:53)
[2019-09-16] MEDS ORDERED: MAGNESIUM HYDROXIDE SUSP 30 ML UDC PO ONE (15:29)
[2019-09-16] MEDS ORDERED: MAGNESIUM HYDROXIDE SUSP 30 ML UDC PO PRN (15:29)
[2019-09-16 16:10] LABS: Hematocrit (blood only) 28.4 % (37-47); Hemoglobin 9.4 g/dL (12.0-16.0); Mean Corpuscular Hemoglobin 25.5 pg (25-34); Mean Corpuscular Hgb Conc 33.1 g/dL (32-36); Mean Corpuscular Volume 77.2 fL (80-100); RDW Coefficient of Variation 17.6 % (11.5-14.5); RDW Standard Deviation 50.1 fL (36.4-46.3); Red Blood Count 3.68 M/uL (4.2-5.4); White Blood Count 6.01 K/uL (4.8-10.8)
[2019-09-16 16:28] LABS: BUN Creatinine Ratio 11.8 (10-20); Calcium 8.4 mg/dl (8.5-10.1); Creatinine Clr Calc Pharmacy 83.8 ml/min; Est GFR (African American) 92.1; Est GFR (Non-African American) 79.5; Potassium 4.2 mmol/L (3.5-5.1)
[2019-09-16 17:00] LABS: Basophils # (auto) 0.01 K/uL (0-0.2); Basophils % (auto) 0.2 %; Echinocytes 1+; Eosinophils # (auto) 0.16 K/uL (0-0.5); Eosinophils % (auto) 2.7 %; Immature Granulocytes # (auto) 0.02 K/uL (0.00-0.02); Immature Granulocytes % (auto) 0.3 %; Lymphocytes # (auto) 0.91 K/uL (1.2-3.4); Lymphocytes % (auto) 15.1 %; Mean Platelet Volume 9.5 fL (7.4-10.4); Monocytes % (auto) 11.6 %; Neutrophils # (auto) 4.21 K/uL (1.4-6.5); Neutrophils % (auto) 70.1 %; Platelet Count 98 K/uL (130-400); Platelet Estimate Decreased (Normal)
--- NOTE | 2019-09-16 19:56 | Hospitalist Progress Note ---
Date of Service September 16, 2019 Assessment & Plan (1) Encephalopathy: (1) ENCEPHALOPATHY LIKELY METABOLIC, MULTIFACTORIAL --Mental status improved today overall Recurrent UTI Was recently completed IV ertapenem for x2 weeks duration, last dose August 26, 2019 Blood and urine cultures: Pending Remains afebrile, urinary symptoms improving Follow-up cultures, continue imipenem for now Hepatic encephalopathy On lactulose twice daily but patient not making more than 3 bowel movements per day as per patient's daughter Started rifaximin 550 mg twice daily Continue to monitor response Pneumonia, possible healthcare associated versus aspiration Blood cultures pending Cover with IV imipenem, doxycycline IV vancomycin given at the ER, nasal MRSA swab negative Polypharmacy Lower gabapentin dose Lower trazodone Hold PRN oxycodone Monitor closely (2) constipation Tapwater enema ordered Milk of mag ordered Continue to monitor (2) CAD (coronary artery disease): Denies cardiac symptoms (3) Chronic diastolic CHF (congestive heart failure): Chronic diastolic CHF with known moderate On the dry side, hold torsemide and Aldactone Continue IV fluids, monitor volume status closely Continue metoprolol but reduce by 50% in light of low blood pressure (4) Hypertension: On the low side Reduce metoprolol to 50% Hold Imdur (5) DM type 2 (diabetes mellitus, type 2): Most recent Hba1c 7 Per patient's daughter, patient was noted to have low blood glucose levels while at [facility] Hold insulin for now, except for insulin sliding scale Blood glucose levels on the lower side, continue to monitor (6) GONZALEZ (nonalcoholic steatohepatitis): Cirrhosis with portal hypertensive gastropathy Management per #1 (7) Hypothyroidism: Continue levothyroxine (8) Portal hypertensive gastropathy: (9) Gastroparesis: Positive constipation management per above (11) Taniyty-Hydrm-Jljvl disease: Continue gabapentin at lower dose in light of altered mental status Monitor response (12) Bipolar disorder: Continue Lamictal and Effexor (13) Anxiety: Takes clonazepam 0.5 mg twice daily as needed (14) Chronic pain syndrome: Continue morphine sulfate 50 mg every 12 hours, Hold oxycodone 5 mg 3 times daily as needed (15) DVT prophylaxis: Heparin subcutaneous twice a day Disposition Was recently discharged from [facility] will need PT OT evaluation Admission and Anticipated Discharge Date Admission Date: September 15, 2019 Subjective Follow-up for multifactorial encephalopathy Seen sitting up in bed, awake, alert oriented x3 States she feels improved today compared to yesterday Does not feel confused Reports mild lower abdominal pain, no bowel movement x1 week, minimal flatus Denies of dysuria, nausea vomiting, chills No problems with urination No shortness of breath, chest pain, dizziness, palpitation no Other symptoms Review of Systems Review of Systems: All systems reviewed & are unremarkable except as noted in HPI & below Physical Exam Physical Exam: General- oriented x 3, not in distress, speaks in sentences with no effort or accessory muscle use Eyes- anicteric Neck- no JVD Lungs- clear breath sounds bilaterally, no rales/wheezes Heart- normal rate, regular rhythm; no murmurs Abdomen- normal bowel sounds, nondistended, soft, nontender Extremities- no pretibial edema, no calf tenderness Neuro- alert, oriented x 3; no gross focal neurologic deficits Skin- warm & dry Results & Data ([facility]) Vital Signs (Past 12 Hours) Vital Signs Temp Pulse Pulse Resp BP BP Pulse Ox 09/16/19 19:48 37.2 C 71 16 123/69 96 09/16/19 15:47 36.9 C 71 18 155/85 H 95 09/16/19 14:53 74 09/16/19 11:13 36.9 C 75 18 107/67 95 09/16/19 10:42 72 Laboratory Results Laboratory Results - last 24 hr 09/15/19 09/15/19 09/16/19 20:56 21:39 07:36 WBC RBC Hgb Hct MCV MCH MCHC RDW Std Deviation RDW Coeff of Guillermo Plt Count MPV Immature Gran % (Auto) Neut % (Auto) Lymph % (Auto) [place] % (Auto) Eos % (Auto) Baso % (Auto) Immature Gran # (Auto) Neut # (Auto) Lymph # (Auto) [place] # (Auto) Eos # (Auto) Baso # (Auto) Platelet Estimate Echinocytes Sodium Potassium Chloride Carbon Dioxide Anion Gap BUN Creatinine Est Cr Clr Drug Dosing Est GFR ( Amer) Est GFR (Non-Af Amer) BUN/Creatinine Ratio Glucose POC Glucose 109 H 158 H Calcium Nasal Screen MRSA (PCR) Negative 09/16/19 09/16/19 09/16/19 11:39 16:04 16:04 WBC 6.01 RBC 3.68 L Hgb 9.4 L Hct 28.4 L MCV 77.2 L MCH 25.5 MCHC 33.1 RDW Std Deviation 50.1 H RDW Coeff of Guillermo 17.6 H Plt Count 98 L MPV 9.5 Immature Gran % (Auto) 0.3 Neut % (Auto) 70.1 Lymph % (Auto) 15.1 [place] % (Auto) 11.6 Eos % (Auto) 2.7 Baso % (Auto) 0.2 Immature Gran # (Auto) 0.02 Neut # (Auto) 4.21 Lymph # (Auto) 0.91 L [place] # (Auto) 0.70 H Eos # (Auto) 0.16 Baso # (Auto) 0.01 Platelet Estimate Decreased L Echinocytes 1+ Sodium 130 L Potassium 4.2 Chloride 102 Carbon Dioxide 23 Anion Gap 6.0 BUN 9 D Creatinine 0.76 Est Cr Clr Drug Dosing 83.8 Est GFR ( Amer) 92.1 Est GFR (Non-Af Amer) 79.5 BUN/Creatinine Ratio 11.8 Glucose 85 POC Glucose 187 H Calcium 8.4 L Nasal Screen MRSA (PCR) 09/16/19 17:11 WBC RBC Hgb Hct MCV MCH MCHC RDW Std Deviation RDW Coeff of Guillermo Plt Count MPV Immature Gran % (Auto) Neut % (Auto) Lymph % (Auto) [place] % (Auto) Eos % (Auto) Baso % (Auto) Immature Gran # (Auto) Neut # (Auto) Lymph # (Auto) [place] # (Auto) Eos # (Auto) Baso # (Auto) Platelet Estimate Echinocytes Sodium Potassium Chloride Carbon Dioxide Anion Gap BUN Creatinine Est Cr Clr Drug Dosing Est GFR ( Amer) Est GFR (Non-Af Amer) BUN/Creatinine Ratio Glucose POC Glucose 98 Calcium Nasal Screen MRSA (PCR)
[2019-09-16] MEDS: FAMOTIDINE 40 MG TABLET PO SCH (20:20)
[2019-09-16] MEDS: MONTELUKAST SODIUM 10 MG TABLET PO SCH (20:20)
[2019-09-16] MEDS: MAGNESIUM OXIDE 400 MG TAB PO SCH (20:20)
[2019-09-16] MEDS: ATORVASTATIN 40 MG TAB PO SCH (20:21)
[2019-09-16] MEDS: TRAZODONE HCL 50 MG TAB PO SCH (20:22)
[2019-09-16] MEDS: ARIPIprazole 1 MG/ML ORAL SOLN 150 ML BTL PO SCH (20:23)
[2019-09-16] MEDS: OXYBUTYNIN CHLORIDE XL 5 MG TABCR PO SCH (20:23)
[2019-09-16] MEDS: HEPARIN SOD 5,000 UNIT/0.5 ML VIAL SQ SCH (21:25)
[2019-09-17] MEDS: IMIPENEM/CILASTATIN SODIUM 400 MG in DEXTROSE 5% 100 ML IV SCH (05:34)
[2019-09-17] MEDS: LEVOTHYROXINE SODIUM 88 MCG TABLET PO SCH (05:35)
[2019-09-17 08:13] LABS: Creatinine Clr Calc Pharmacy 93.1 ml/min; Est GFR (African American) 102.2; Est GFR (Non-African American) 88.2
[2019-09-17] MEDS: lamoTRIgine 100 MG TAB PO SCH (08:41)
[2019-09-17] MEDS: MoRPHine SULFATE CR 15 MG TABCR PO SCH ×2 (08:41→20:36)
[2019-09-17] MEDS: VENLAFAXINE HCL XR 75 MG CAPXR PO SCH (08:43)
[2019-09-17] MEDS: HEPARIN SOD 5,000 UNIT/0.5 ML VIAL SQ SCH ×2 (08:43→20:41)
[2019-09-17] MEDS: RIFAXIMIN 550 MG TABLET PO SCH ×2 (08:44→20:40)
[2019-09-17] MEDS: GABAPENTIN 300 MG CAP PO SCH ×2 (08:44→20:30)
[2019-09-17] MEDS: lamoTRIgine 25 MG TAB PO SCH ×2 (08:44→20:26)
[2019-09-17] MEDS: DOXYCYCLINE HYCLATE 100 MG CAP PO SCH ×2 (08:44→20:21)
[2019-09-17] MEDS: LACTULOSE SYRUP 20 GM/30 ML UDC PO SCH ×2 (08:45→20:22)
[2019-09-17] MEDS: METOPROLOL SUCC 25MG EXT REL TAB PO SCH ×2 (08:45→20:39)
[2019-09-17] MEDS: PANTOprazole 40 MG TAB PO SCH ×2 (08:45→20:37)
[2019-09-17] MEDS: INSULIN ASPART 100 UNITS/ML 3 ML PEN SC SCH ×4 (08:46→20:44)
[2019-09-17] MEDS: ACETAMINOPHEN 500 MG TAB PO PRN (10:58)
[2019-09-17] MEDS: POLYETHYLENE (MIRALAX) 17 GM PACK PO SCH (11:04)
[2019-09-17] MEDS ORDERED: IMIPENEM/CILASTATIN SODIUM 500 MG in DEXTROSE 5% 100 ML IV SCH (12:00)
--- NOTE | 2019-09-17 13:35 | Internal Medicine Consult Note ---
Date of Consultation September 17, 2019 Assessment & Plan (1) Encounter for rehabilitation evaluation: Appears to be responding to antibiotic treatment and hydration. I suspect her polypharm is at the heart of her medical issues. I am unsure if additional therapy will benefit her as long as she remains on so many psychotropic medications. History of Present Illness Reason for Consultation: Rehab Hospital Medical Evaluation Attending Physician: Leroy Guevara MD History of Present Illness She was admitted to the hospital for worsening confusion and concern for pneumonia/UTI. Underlying medical issues are complex and include psychiatric disease and polypharm. She was recently at for care. We talked about additional rehab care. I suspect her extensive polypharm is a major driving force behind her medical problems. In the setting of oversedation, she will be more prone to UTI and poor pulmonary toilet. We talked about her home care. She had not started outpatient therapy after her last rehab stay. Allergies Allergy/AdvReac Type Severity Reaction Status Date / Time propoxyphene Allergy Mild Rash Verified 09/15/19 17:31 fentanyl AdvReac Intermediate PANIC Verified 09/15/19 17:31 WANTS TO RUN AND AGGRESSIVE zolpidem AdvReac Intermediate confusion Verified 09/15/19 17:31 methocarbamol AdvReac Mild DELERIUM Verified 09/15/19 17:31 Home Medications Home Medications Medication Instructions Recorded Confirmed Type albuterol sulfate [Ventolin HFA] 2 puff INHALATION QID PRN 04/27/18 09/15/19 History aripiprazole 2 mg PO HS 04/27/18 09/15/19 History atorvastatin 80 mg PO HS 04/27/18 09/15/19 History benzonatate 100 mg PO TID PRN 04/27/18 09/15/19 History clonazepam 0.5 mg PO BID PRN 04/27/18 09/15/19 History dicyclomine 10 mg PO QID PRN 04/27/18 09/15/19 History dulaglutide 0.5 ml SUBCUT WK 04/27/18 09/15/19 History ergocalciferol (vitamin D2) 50,000 units PO WK 04/27/18 09/15/19 History famotidine 40 mg PO HS 04/27/18 09/15/19 History gabapentin 600 mg PO BID 04/27/18 09/15/19 History lamotrigine 25 mg PO BID 04/27/18 09/15/19 History lamotrigine 100 mg PO QAM 04/27/18 09/15/19 History levothyroxine 88 mcg PO QAM 04/27/18 09/15/19 History magnesium oxide 400 mg PO HS 04/27/18 09/15/19 History metformin 1,000 mg PO BID 04/27/18 09/15/19 History nitroglycerin [Nitrostat] 0.4 mg SUBLINGUAL DIRECTED PRN 04/27/18 09/15/19 History omeprazole 20 mg PO BID 04/27/18 09/15/19 History ondansetron HCl 8 mg PO Q8H PRN 04/27/18 09/15/19 History oxycodone 5 - 10 mg PO TID PRN MDD 20mg 04/27/18 09/15/19 History trazodone 150 mg PO HS 04/27/18 09/15/19 History isosorbide mononitrate 60 mg PO QAM 09/03/18 09/15/19 History torsemide 20 mg PO QAM 09/03/18 09/15/19 History morphine 15 mg PO Q12H 11/27/18 09/15/19 History montelukast 10 mg PO HS 06/11/19 09/15/19 History oxybutynin chloride 10 mg PO HS 06/11/19 09/15/19 History loratadine 10 mg PO DAILY PRN 08/20/19 09/15/19 History lactulose 30 ml PO BID #0 ml 08/24/19 09/15/19 Rx metoprolol succinate 25 mg PO BID 09/15/19 09/15/19 History polyethylene glycol 3350 [Miralax] 17 g PO QDL 09/15/19 09/15/19 History spironolactone 50 mg PO BID 09/15/19 09/15/19 History venlafaxine 225 mg PO QAM 09/15/19 09/15/19 History Patient History Medical History Anxiety (Chronic) Bipolar disorder (Chronic) CAD (coronary artery disease) (Chronic) History of multiple PCI's to the RCA with subsequent CABG x1 in 2010 x 1 vessel Most recent cardiac testing-negative DSE in December 2017 Follows w/ Dr. Blackwell and Dr. Lucas Tadqpcy-Nnmav-Pqnsu disease (Chronic) follows w/ Dr. Lemus Chronic diastolic CHF (congestive heart failure) (Chronic) Depression DM type 2 (diabetes mellitus, type 2) (Chronic) IDDM Dyslipidemia (Chronic) Gastroparesis (Chronic) GERD (gastroesophageal reflux disease) Hypertension (Chronic) Hypothyroidism (Chronic) Irregular heart beat follows Dr. 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 Rosenthal Osteoarthritis Portal hypertensive gastropathy (Chronic) Spondylosis Surgical History History of appendectomy (Chronic) History of back surgery (Chronic) sacral area History of cardiac cath multiple - most recent - 2 years ago @ [place] - FOR [facility] History of cataract surgery History of colonoscopy History of esophagogastroduodenoscopy (EGD) History of heart artery stent 2 yrs ago @ [facility] > unsure of how many stents > follows Dr. Lucas History of total right knee replacement (Chronic) Hx of cholecystectomy (Chronic) S/P CABG x 1 (Chronic) 2010 - single vessel S/P CARLOS (total abdominal hysterectomy) (Chronic) Family History Father Coronary heart disease Brother Coronary heart disease Father Diabetes Mother Diabetes Social History Preferred Language: Swedish Communication Ability: Effective Communications Executive Required: No Beliefs That Will Affect Care: Druze Druze Beliefs: MELISSA ARMSTRONG/ PT AT THIS POINT THINKS SHE WOULD STILL RECEIVE A BLOOD TRANSFUSION marital status: / Current Living Situation: Family Other Information That Helps Us Care for You: No Feels Safe at Home: Yes Safety Concerns: Feels Safe At This Time Smoking Status: Unknown if ever smoked Hx Alcohol Use: No Hx Substance Use: No Review of Systems Review of Systems: as per HPI Physical Exam Physical Exam: Vitals--noted HEENT--no new deficits Resp--no distress Cardio--volume status ok GI--function Neuro--no new focal motor changes. Results & Data Vital Signs (Past 12 Hours) Vital Signs Temp Pulse Pulse Resp BP BP Pulse Ox 09/17/19 12:00 36.8 C 66 18 93/60 L 93 09/17/19 08:00 63 09/17/19 07:59 36.9 C 62 18 106/59 L 95 09/17/19 03:36 76 09/17/19 03:33 36.6 C 63 18 126/82 96
[2019-09-17] MEDS ORDERED: PIPERACILL/TAZOBAC CONSULT ACTIVE PRN (13:59)
[2019-09-17] MEDS ORDERED: PIPERACILLIN/TAZOBACTAM 3.375 GM in DEXTROSE 5% 100 ML IV ONE (16:00)
[2019-09-17] MEDS: SODIUM CHLORIDE 0.9% 1000ML 1,000 ML IV SCH (16:24)
[2019-09-17] MEDS: clonazePAM 0.5 MG TAB PO PRN (16:28)
[2019-09-17] MEDS ORDERED: BENZOCAINE 20% (ORAJEL) 11.9 GM TUBE MT PRN (17:12)
[2019-09-17] MEDS: ARIPIprazole 1 MG/ML ORAL SOLN 150 ML BTL PO SCH (20:22)
[2019-09-17] MEDS: TRAZODONE HCL 50 MG TAB PO SCH (20:23)
[2019-09-17] MEDS: OXYBUTYNIN CHLORIDE XL 5 MG TABCR PO SCH (20:26)
[2019-09-17] MEDS: ATORVASTATIN 40 MG TAB PO SCH (20:27)
--- NOTE | 2019-09-17 20:27 | Hospitalist Progress Note ---
Date of Service September 17, 2019 Assessment & Plan (1) Encephalopathy: (1) ENCEPHALOPATHY LIKELY METABOLIC, MULTIFACTORIAL --CT head no acute process --Mental status improving overall, though still having episodes of confusion, will continue to monitor closely Recurrent UTI Was recently completed IV ertapenem for x2 weeks duration, last dose August 26, 2019 Urine culture: Streptococcus species, continue to follow Blood cultures: Negative so far Remains afebrile, urinary symptoms resolved Follow-up cultures, transition from imipenem to Zosyn Hepatic encephalopathy On lactulose twice daily but patient not making more than 3 bowel movements per day as per patient's daughter Started rifaximin 550 mg twice daily Mental status improving overall, will continue to monitor Pneumonia, possible healthcare associated versus aspiration Blood cultures pending Continue with IV Zosyn, doxycycline IV vancomycin given at the ER, nasal MRSA swab negative Polypharmacy Lower gabapentin dose Lower trazodone Hold PRN oxycodone Monitor closely (2) constipation Tapwater enema ordered Milk of mag ordered --Patient had 2 good bowel movements today Continue to monitor (2) CAD (coronary artery disease): Denies cardiac symptoms (3) Chronic diastolic CHF (congestive heart failure): Chronic diastolic CHF with known moderate On the dry side, hold torsemide and Aldactone Has received IV fluids, DC for now Continue metoprolol but reduce by 50% in light of low blood pressure (4) Hypertension: On the low side Reduce metoprolol to 50% Hold Imdur (5) DM type 2 (diabetes mellitus, type 2): Most recent Hba1c 7 Per patient's daughter, patient was noted to have low blood glucose levels while at [facility] Hold insulin for now, except for insulin sliding scale Blood glucose levels within acceptable range, continue to monitor (6) GONZALEZ (nonalcoholic steatohepatitis): Cirrhosis with portal hypertensive gastropathy Management per #1 (7) Hypothyroidism: Continue levothyroxine (8) Portal hypertensive gastropathy: (9) Gastroparesis: Positive constipation management per above (11) Rctqhvr-Rqpbq-Nokqc disease: Continue gabapentin at lower dose in light of altered mental status Monitor response (12) Bipolar disorder: Continue Lamictal and Effexor (13) Anxiety: Takes clonazepam 0.5 mg twice daily as needed (14) Chronic pain syndrome: Continue morphine sulfate 50 mg every 12 hours, Hold oxycodone 5 mg 3 times daily as needed (15) DVT prophylaxis: Heparin subcutaneous twice a day Disposition Was recently discharged from [facility] will need PT OT evaluation Plan of care discussed with patient and also her daughter at the bedside in detail and at length All questions were answered They are understanding, agreeable, comfortable with the plan of care Admission and Anticipated Discharge Date Admission Date: September 15, 2019 Subjective Follow-up for metabolic encephalopathy, UTI Per community health nurse staff patient has episodes of saying things that are "off" Mostly awake, alert, oriented x3 Seen having her dinner, allowed me to interview and examined Patient is awake alert oriented x3, conversant, asking and answering questions appropriately Has clear recollection of our conversation with case worker, [facility] physician Also inquiring about her antibiotic changed today States that she feels improved today, states that she feels that she is thinking clearly denies confusion No headache, dizziness, chest pain, shortness of breath abdominal pain, problems with urination Had 2 good bowel movements today No other symptoms Review of Systems Review of Systems: All systems reviewed & are unremarkable except as noted in HPI & below Physical Exam Physical Exam: General- oriented x 3, not in distress, speaks in sentences with no effort or accessory muscle use Eyes- anicteric Neck- no JVD Lungs- clear breath sounds bilaterally, no crackles or wheezing Heart- normal rate, regular rhythm; no murmurs Abdomen- normal bowel sounds, nondistended, soft, nontender Extremities- no pretibial edema, no calf tenderness Neuro- alert, oriented x 3; no gross focal neurologic deficits Skin- warm & dry Results & Data ([facility]) Vital Signs (Past 12 Hours) Vital Signs Temp Pulse Pulse Resp BP BP Pulse Ox 09/17/19 19:47 37.1 C 59 L 18 143/81 H 99 09/17/19 16:00 37.0 C 63 18 111/59 L 95 09/17/19 15:55 63 09/17/19 12:00 36.8 C 66 18 93/60 L 93 Laboratory Results Laboratory Results - last 24 hr 09/16/19 09/16/19 09/16/19 20:28 20:30 20:32 Creatinine Est Cr Clr Drug Dosing Est GFR ( Amer) Est GFR (Non-Af Amer) Glucose POC Glucose 356 H* 160 H 166 H 09/16/19 09/17/19 09/17/19 20:43 07:13 07:38 Creatinine 0.69 Est Cr Clr Drug Dosing 93.1 Est GFR ( Amer) 102.2 Est GFR (Non-Af Amer) 88.2 Glucose 164 H POC Glucose 130 H 09/17/19 09/17/19 11:46 16:37 Creatinine Est Cr Clr Drug Dosing Est GFR ( Amer) Est GFR (Non-Af Amer) Glucose POC Glucose 172 H 152 H
[2019-09-17] MEDS: MAGNESIUM OXIDE 400 MG TAB PO SCH (20:28)
[2019-09-17] MEDS: FAMOTIDINE 40 MG TABLET PO SCH (20:36)
[2019-09-17] MEDS: MONTELUKAST SODIUM 10 MG TABLET PO SCH (20:38)
[2019-09-17] MEDS: PIPERACILLIN/TAZOBACTAM 3.375 GM in DEXTROSE 5% 100 ML IV SCH (21:41)
[2019-09-18] MEDS: ACETAMINOPHEN 500 MG TAB PO PRN (03:34)
[2019-09-18] MEDS: LEVOTHYROXINE SODIUM 88 MCG TABLET PO SCH (05:59)
[2019-09-18] MEDS: PIPERACILLIN/TAZOBACTAM 3.375 GM in DEXTROSE 5% 100 ML IV SCH ×2 (06:02→14:10)
[2019-09-18 07:18] LABS: Creatinine Clr Calc Pharmacy 85.1 ml/min; Est GFR (African American) 93.6; Est GFR (Non-African American) 80.8
[2019-09-18] MEDS: INSULIN ASPART 100 UNITS/ML 3 ML PEN SC SCH ×4 (07:56→20:56)
[2019-09-18] MEDS: HEPARIN SOD 5,000 UNIT/0.5 ML VIAL SQ SCH ×2 (07:56→20:57)
[2019-09-18] MEDS: METOPROLOL SUCC 25MG EXT REL TAB PO SCH ×2 (07:56→20:52)
[2019-09-18] MEDS: VENLAFAXINE HCL XR 75 MG CAPXR PO SCH (07:57)
[2019-09-18] MEDS: lamoTRIgine 25 MG TAB PO SCH ×2 (07:57→20:52)
[2019-09-18] MEDS: PANTOprazole 40 MG TAB PO SCH ×2 (07:57→20:52)
[2019-09-18] MEDS: RIFAXIMIN 550 MG TABLET PO SCH ×2 (07:57→20:51)
[2019-09-18] MEDS: DOXYCYCLINE HYCLATE 100 MG CAP PO SCH ×2 (07:57→19:37)
[2019-09-18] MEDS: GABAPENTIN 300 MG CAP PO SCH ×2 (07:57→20:53)
[2019-09-18] MEDS: lamoTRIgine 100 MG TAB PO SCH (07:57)
[2019-09-18] MEDS: LACTULOSE SYRUP 20 GM/30 ML UDC PO SCH ×2 (07:58→20:54)
[2019-09-18] MEDS: SODIUM CHLORIDE 0.9% 1000ML 1,000 ML IV SCH (07:58)
[2019-09-18] MEDS: MoRPHine SULFATE CR 15 MG TABCR PO SCH ×2 (08:07→20:53)
[2019-09-18] MEDS: ONDANSETRON INJ 2 MG/ML 2 ML VIAL IV PRN (09:49)
[2019-09-18] MEDS: POLYETHYLENE (MIRALAX) 17 GM PACK PO SCH (11:57)
[2019-09-18] MEDS: clonazePAM 0.5 MG TAB PO PRN ×2 (17:19→20:51)
[2019-09-18] MEDS ORDERED: DAPTOMYCIN CONSULT ACTIVE PRN (20:21)
[2019-09-18] MEDS: OXYBUTYNIN CHLORIDE XL 5 MG TABCR PO SCH (20:51)
[2019-09-18] MEDS: MONTELUKAST SODIUM 10 MG TABLET PO SCH (20:52)
[2019-09-18] MEDS: FAMOTIDINE 40 MG TABLET PO SCH (20:53)
[2019-09-18] MEDS: MAGNESIUM OXIDE 400 MG TAB PO SCH (20:53)
[2019-09-18] MEDS: ARIPIprazole 1 MG/ML ORAL SOLN 150 ML BTL PO SCH (20:55)
[2019-09-18] MEDS: DAPTOmycin 500 MG in SYRINGE 0 ML IV SCH (21:07)
[2019-09-18] MEDS: TRAZODONE HCL 50 MG TAB PO SCH (21:11)
--- NOTE | 2019-09-18 21:41 | Hospitalist Progress Note ---
Date of Service Delayed entry Date of service noted below September 18, 2019 Assessment & Plan (1) Encephalopathy: (1) ENCEPHALOPATHY LIKELY METABOLIC, MULTIFACTORIAL --CT head no acute process --Mental status improving overall, though still having episodes of confusion, will continue to monitor closely Recurrent UTI Was recently completed IV ertapenem for x2 weeks duration, last dose August 26, 2019 Urine culture: VRE Blood cultures: Negative so far Remains afebrile, urinary symptoms resolved transition from imipenem to Zosyn to daptomycin Hepatic encephalopathy On lactulose twice daily but patient not making more than 3 bowel movements per day as per patient's daughter Started rifaximin 550 mg twice daily Mental status improving overall, will continue to monitor Pneumonia, possible healthcare associated versus aspiration Blood cultures negative Continue with IV daptomycin and, doxycycline Polypharmacy Lower gabapentin dose Lower trazodone Hold PRN oxycodone Mental status improving (2) constipation Tapwater enema ordered Milk of mag ordered --Positive BMs Continue to monitor (2) CAD (coronary artery disease): Denies cardiac symptoms (3) Chronic diastolic CHF (congestive heart failure): Chronic diastolic CHF with known moderate On the dry side, hold torsemide and Aldactone Has received IV fluids, DC for now Continue metoprolol but reduce by 50% in light of low blood pressure (4) Hypertension: On the low side Reduce metoprolol to 50% Hold Imdur (5) DM type 2 (diabetes mellitus, type 2): Most recent Hba1c 7 Per patient's daughter, patient was noted to have low blood glucose levels while at [facility] Hold insulin for now, except for insulin sliding scale Blood glucose levels within acceptable range, continue to monitor (6) GONZALEZ (nonalcoholic steatohepatitis): Cirrhosis with portal hypertensive gastropathy Management per #1 (7) Hypothyroidism: Continue levothyroxine (8) Portal hypertensive gastropathy: (9) Gastroparesis: Positive constipation management per above (11) Fevxkpr-Zdmbz-Sunza disease: Continue gabapentin at lower dose in light of altered mental status Monitor response (12) Bipolar disorder: Continue Lamictal and Effexor (13) Anxiety: Takes clonazepam 0.5 mg twice daily as needed (14) Chronic pain syndrome: Continue morphine sulfate 50 mg every 12 hours, Hold oxycodone 5 mg 3 times daily as needed (15) DVT prophylaxis: Heparin subcutaneous twice a day Disposition Was recently discharged from [facility] will need PT OT evaluation Plan of care discussed with patient in detail and at length All questions were answered She is understanding, agreeable, comfortable with the plan of care Admission and Anticipated Discharge Date Admission Date: September 15, 2019 Subjective Follow-up for altered mental status Seen resting in bed, comfortable, not in distress, oriented x3 Answers all questions appropriately Denies feeling confused Reports she had 3 small bowel movements No other symptoms Physical Exam Physical Exam: General- oriented x 3, not in distress, speaks in sentences with no effort or accessory muscle use Eyes- anicteric Neck- no JVD Lungs- clear BS bilaterally Heart- normal rate, regular rhythm; no murmurs Abdomen- normal bowel sounds, nondistended, soft, nontender Extremities- no pretibial edema, no calf tenderness Neuro- alert, oriented x 3; no gross focal neurologic deficits Skin- warm & dry Results & Data ([facility]) Vital Signs (Past 12 Hours) Vital Signs Temp Pulse Pulse Resp BP Pulse Ox 09/18/19 19:32 36.8 C 63 16 134/61 99 09/18/19 15:56 56 L 09/18/19 14:48 37.0 C 58 L 20 131/68 98 09/18/19 11:35 59 L 20 107/73 98
[2019-09-19] MEDS: ACETAMINOPHEN 500 MG TAB PO PRN ×3 (00:55→21:27)
[2019-09-19] MEDS: LEVOTHYROXINE SODIUM 88 MCG TABLET PO SCH (05:32)
[2019-09-19 06:30] LABS: Hematocrit (blood only) 30.6 % (37-47); Hemoglobin 9.6 g/dL (12.0-16.0); Mean Corpuscular Hemoglobin 25.1 pg (25-34); Mean Corpuscular Hgb Conc 31.4 g/dL (32-36); Mean Corpuscular Volume 80.1 fL (80-100); Mean Platelet Volume 10.2 fL (7.4-10.4); Platelet Count 122 K/uL (130-400); RDW Coefficient of Variation 18.3 % (11.5-14.5); RDW Standard Deviation 52.9 fL (36.4-46.3); Red Blood Count 3.82 M/uL (4.2-5.4); White Blood Count 3.59 K/uL (4.8-10.8)
[2019-09-19 07:03] LABS: Creatinine Clr Calc Pharmacy 81.9 ml/min; Est GFR (African American) 89.3
[2019-09-19] MEDS: INSULIN ASPART 100 UNITS/ML 3 ML PEN SC SCH ×4 (08:30→21:00)
[2019-09-19] MEDS: MoRPHine SULFATE CR 15 MG TABCR PO SCH ×2 (08:30→20:11)
[2019-09-19] MEDS: VENLAFAXINE HCL XR 75 MG CAPXR PO SCH (08:31)
[2019-09-19] MEDS: DOXYCYCLINE HYCLATE 100 MG CAP PO SCH ×2 (08:31→20:07)
[2019-09-19] MEDS: METOPROLOL SUCC 25MG EXT REL TAB PO SCH ×2 (08:31→20:04)
[2019-09-19] MEDS: LACTULOSE SYRUP 20 GM/30 ML UDC PO SCH ×2 (08:31→20:04)
[2019-09-19] MEDS: lamoTRIgine 100 MG TAB PO SCH (08:31)
[2019-09-19] MEDS: RIFAXIMIN 550 MG TABLET PO SCH ×2 (08:31→20:05)
[2019-09-19] MEDS: PANTOprazole 40 MG TAB PO SCH ×2 (08:31→20:05)
[2019-09-19] MEDS: lamoTRIgine 25 MG TAB PO SCH ×2 (08:32→20:09)
[2019-09-19] MEDS: GABAPENTIN 300 MG CAP PO SCH ×2 (08:32→20:08)
[2019-09-19] MEDS: HEPARIN SOD 5,000 UNIT/0.5 ML VIAL SQ SCH ×2 (08:32→20:49)
[2019-09-19] MEDS: POLYETHYLENE (MIRALAX) 17 GM PACK PO SCH (12:01)
[2019-09-19] MEDS: ARIPIprazole 1 MG/ML ORAL SOLN 150 ML BTL PO SCH (20:04)
[2019-09-19] MEDS: FAMOTIDINE 40 MG TABLET PO SCH (20:05)
[2019-09-19] MEDS: MONTELUKAST SODIUM 10 MG TABLET PO SCH (20:06)
[2019-09-19] MEDS: OXYBUTYNIN CHLORIDE XL 5 MG TABCR PO SCH (20:06)
[2019-09-19] MEDS: MAGNESIUM OXIDE 400 MG TAB PO SCH (20:08)
[2019-09-19] MEDS: clonazePAM 0.5 MG TAB PO PRN (20:10)
[2019-09-19] MEDS: TRAZODONE HCL 50 MG TAB PO SCH (20:10)
[2019-09-19] MEDS: DAPTOmycin 500 MG in SYRINGE 0 ML IV SCH (20:12)
--- NOTE | 2019-09-19 21:09 | Hospitalist Progress Note ---
Date of Service September 19, 2019 Assessment & Plan (1) Encephalopathy: (1) ENCEPHALOPATHY LIKELY METABOLIC, MULTIFACTORIAL --CT head no acute process --Mental status improving overall, though still having episodes of confusion, will continue to monitor closely Recurrent UTI Was recently completed IV ertapenem for x2 weeks duration, last dose August 26, 2019 Urine culture: VRE Blood cultures: Negative so far Remains afebrile, urinary symptoms resolved transition from imipenem to Zosyn to daptomycin #2 Hepatic encephalopathy On lactulose twice daily but patient not making more than 3 bowel movements per day as per patient's daughter Started rifaximin 550 mg twice daily Mental status improving overall, will continue to monitor Pneumonia, possible healthcare associated versus aspiration Blood cultures negative Continue with IV daptomycin and, doxycycline Polypharmacy Lower gabapentin dose Lower trazodone Hold PRN oxycodone Mental status improving (2) constipation Tapwater enema ordered Milk of mag ordered --Positive BMs Continue to monitor (2) CAD (coronary artery disease): Denies cardiac symptoms (3) Chronic diastolic CHF (congestive heart failure): Chronic diastolic CHF with known moderate On admission, on the dry side, hold torsemide and Aldactone Has received IV fluids, DC for now Continue metoprolol but reduce by 50% in light of low blood pressure --Resume diuretics tomorrow (4) Hypertension: On the low side Reduce metoprolol to 50% Hold Imdur (5) DM type 2 (diabetes mellitus, type 2): Most recent Hba1c 7 Per patient's daughter, patient was noted to have low blood glucose levels while at [facility] Hold insulin for now, except for insulin sliding scale Blood glucose levels within acceptable range, continue to monitor (6) GONZALEZ (nonalcoholic steatohepatitis): Cirrhosis with portal hypertensive gastropathy Management per #1 (7) Hypothyroidism: Continue levothyroxine (8) Portal hypertensive gastropathy: (9) Gastroparesis: Positive constipation management per above (11) Zjeelcw-Sserl-Btavb disease: Continue gabapentin at lower dose in light of altered mental status Monitor response (12) Bipolar disorder: Continue Lamictal and Effexor (13) Anxiety: Takes clonazepam 0.5 mg twice daily as needed (14) Chronic pain syndrome: Continue morphine sulfate 50 mg every 12 hours, Hold oxycodone 5 mg 3 times daily as needed (15) DVT prophylaxis: Heparin subcutaneous twice a day Disposition Was recently discharged from [facility] will need PT OT evaluation Plan of care discussed with patient and her daughter in detail and at length All questions were answered They are understanding, agreeable, comfortable with the plan of care Admission and Anticipated Discharge Date Admission Date: September 15, 2019 Subjective Follow-up altered mental status Seen with patient's daughter Carolyn at the bedside Patient is awake alert oriented x3, answers all questions appropriately Carolyn reports patient's mental status has been significantly improved Patient denies shortness of breath, chest pain, abdominal pain, nausea vomiting Denies feeling confused today No other symptoms Review of Systems Review of Systems: All systems reviewed & are unremarkable except as noted in HPI & below Physical Exam Physical Exam: General- oriented x 3, not in distress, speaks in sentences with no effort or accessory muscle use Eyes- anicteric Neck- no JVD Lungs- clear breath sounds bilaterally, no crackles, no wheezing Heart- normal rate, regular rhythm; no murmurs Abdomen- normal bowel sounds, nondistended, soft, nontender Extremities-trace pretibial edema, no calf tenderness Neuro- alert, oriented x 3; no gross focal neurologic deficits Skin- warm & dry Results & Data ([facility]) Vital Signs (Past 12 Hours) Vital Signs Temp Pulse Pulse Resp BP Pulse Ox 09/19/19 19:33 37.5 C 71 15 136/64 97 09/19/19 15:56 37.5 C 09/19/19 15:44 88 09/19/19 15:25 37.7 C H 77 20 138/59 L 100 09/19/19 11:28 37.4 C 63 18 124/77 98
[2019-09-20] MEDS: ACETAMINOPHEN 500 MG TAB PO PRN ×2 (04:32→11:32)
[2019-09-20] MEDS: LEVOTHYROXINE SODIUM 88 MCG TABLET PO SCH (05:40)
[2019-09-20] MEDS: DOXYCYCLINE HYCLATE 100 MG CAP PO SCH (07:48)
[2019-09-20] MEDS: LACTULOSE SYRUP 20 GM/30 ML UDC PO SCH (07:48)
[2019-09-20] MEDS: RIFAXIMIN 550 MG TABLET PO SCH (07:48)
[2019-09-20] MEDS: GABAPENTIN 300 MG CAP PO SCH (07:49)
[2019-09-20] MEDS: lamoTRIgine 25 MG TAB PO SCH (07:49)
[2019-09-20] MEDS: lamoTRIgine 100 MG TAB PO SCH (07:49)
[2019-09-20] MEDS: VENLAFAXINE HCL XR 75 MG CAPXR PO SCH (07:50)
[2019-09-20] MEDS: PANTOprazole 40 MG TAB PO SCH (07:50)
[2019-09-20] MEDS: METOPROLOL SUCC 25MG EXT REL TAB PO SCH (07:51)
[2019-09-20] MEDS: INSULIN ASPART 100 UNITS/ML 3 ML PEN SC SCH ×2 (07:53→12:54)
[2019-09-20] MEDS: HEPARIN SOD 5,000 UNIT/0.5 ML VIAL SQ SCH (07:54)
[2019-09-20] MEDS: MoRPHine SULFATE CR 15 MG TABCR PO SCH (08:00)
[2019-09-20] MEDS ORDERED: TORSEMIDE 20 MG TAB PO SCH (10:15)
--- NOTE | 2019-09-20 10:15 | Hospitalist Progress Note ---
Date of Service September 20, 2019 Assessment & Plan (1) Encephalopathy: (1) ENCEPHALOPATHY LIKELY METABOLIC, MULTIFACTORIAL --CT head no acute process --Mental status much better overall, back to baseline, daughter agrees Recurrent UTI Was recently completed IV ertapenem for x2 weeks duration, last dose September 03, 2019 Urine culture: VRE Blood cultures: Negative so far Remains afebrile, urinary symptoms resolved transition from imipenem to Zosyn to daptomycin #3--> needs 7 more days of IV Daptomycin 500mg daily CBC, Comprehensive Metabolic Profile weekly while on IV Dapto follow up with Urology Hepatic encephalopathy On lactulose twice daily but patient not making more than 3 bowel movements per day as per patient's daughter Started rifaximin 550 mg twice daily Mental status significantly improved continue Lactulose and Rifaximin Pneumonia, possible healthcare associated versus aspiration Blood cultures negative given IV daptomycin and, doxycycline needs 1 more day of Doxycycline PO 100mg BID to complete 7days Polypharmacy Lower gabapentin dose Lower trazodone Hold PRN oxycodone Mental status improving (2) Constipation Tapwater enema ordered Milk of mag ordered --Positive BMs Continue to monitor -- needs 2-3 BMs per day to prevent hepatic encephalopathy (2) CAD (coronary artery disease): Denies cardiac symptoms (3) Chronic diastolic CHF (congestive heart failure): Chronic diastolic CHF with known moderate On admission, on the dry side, hold torsemide and Aldactone Has received IV fluids, DC for now Continue metoprolol but reduce by 50% in light of low blood pressure --Resume diuretics monitor volume status closely (4) Hypertension: On the low side Reduce metoprolol to 50% Hold Imdur BP systolic 110s to 130s monitor (5) DM type 2 (diabetes mellitus, type 2): Most recent Hba1c from 08/2019: 8 Per patient's daughter, patient was noted to have low blood glucose levels while at [facility] Hold insulin for now, except for insulin sliding scale Blood glucose levels within acceptable range, continue to monitor -- based on Insulin requirement while admitted, would recommend Lantus 10 units in AM monitor BSGs AC and HS and adjust Lantus accordingly (6) GONZALEZ (nonalcoholic steatohepatitis): Cirrhosis with portal hypertensive gastropathy Management per #1 (7) Hypothyroidism: Continue levothyroxine (8) Portal hypertensive gastropathy: (9) Gastroparesis: Positive constipation management per above (11) Pagpgnw-Ibgvl-Qsdwz disease: Gabapentin dose lowered in light of altered mental status tolerating well (12) Bipolar disorder: Continue Lamictal and Effexor (13) Anxiety: Takes clonazepam 0.5 mg twice daily as needed (14) Chronic pain syndrome: Continue morphine sulfate 50 mg every 12 hours, d/c oxycodone 5 mg 3 times daily as needed pain well controlled (15) DVT prophylaxis: Heparin subcutaneous twice a day given Disposition d/c to [facility] ff up with PCP 1 week after d/c from [facility] Plan of care discussed with patient and her daughter in detail and at length All questions were answered They are understanding, agreeable, comfortable with the plan of care Admission and Anticipated Discharge Date Admission Date: September 15, 2019 Subjective ff up for altered mental status seen resting in bed, comfortable states she feels fine overall denies confusion, sleepiness no abdominal pain, nausea/vomiting, changes with urination no other symptoms states she is ready and would like to be discharged today Review of Systems Review of Systems: All systems reviewed & are unremarkable except as noted in HPI & below Physical Exam Physical Exam: General- oriented x 3, not in distress, speaks in sentences with no effort or accessory muscle use Eyes- anicteric Neck- no JVD Lungs- clear BS BL Heart- normal rate, regular rhythm; no murmurs Abdomen- normal bowel sounds, nondistended, soft, nontender Extremities- no pretibial edema, no calf tenderness Neuro- alert, oriented x 3; no gross focal neurologic deficits Skin- warm & dry Results & Data ([facility]) Vital Signs (Past 12 Hours) Vital Signs Temp Pulse Pulse Resp BP Pulse Ox 09/20/19 07:31 61 09/20/19 07:05 36.9 C 64 19 110/71 96 09/20/19 04:00 37.1 C 76 18 106/68 95 09/19/19 23:03 65 09/19/19 23:00 37.0 C 69 18 113/71 97
[2019-09-20] MEDS: POLYETHYLENE (MIRALAX) 17 GM PACK PO SCH (11:32)
--- NOTE | 2019-09-20 14:06 | Discharge Summary ---
Date of Service September 20, 2019 Admission HPI Per Admitting Provider 69-year-old female with history of recurrent UTIs, Gonzalez, CAD, CHF diastolic type, diabetes type 2, hypertension And other problems noted below presenting with altered mental status times few days. History supplemented by patient's daughter Carolyn. [facility] August [facility], 2019 after being treated for ESBL E. coli UTI. Her last dose of IV ertapenem was September 03, 2019. Patient was discharged from [facility] last Friday. As per daughter, patient was noted to be weak, occasionally lethargic, and confused while at [facility]. This continued after patient transition to home. Patient was found to have fallen last Friday and also yesterday. She also was noted to have chills, and confused as well. At the ER, patient's urinalysis showed possible UTI. Abdominal CAT scan showed possible right-sided pneumonia. Ammonia level normal On exam, the patient was seen sitting up in bed, awake, alert, oriented to person and place. She reports having generalized headache but no nausea/vomiting, changes with vision or any focal neurologic deficit. Denies having chest pain, shortness of breath, cough, fever sputum production. Denies abdominal pain, does report dysuria, and right-sided flank pain. No other symptoms Primary Care Provider: Brian Domínguez MD Admission Exam Per Admitting Provider General- oriented x 2 not in distress, speaks in sentences with no effort or accessory muscle use Head- atraumatic Eyes- PERRL, EOMI, anicteric ENT- oropharynx clear Neck- supple, no JVD, no adenopathy, no thyromegaly; carotids +2/2, no bruits appreciated Lungs- clear to auscultation bilaterally, no rales/wheezes Heart- normal rate, regular rhythm; no murmur, no gallop, no rub appreciated Back-blister and areas of erythema on the right lower back No signs of infection Abdomen- normal bowel sounds, nondistended, soft, nontender, no masses or hepatosplenomegaly Positive fading ecchymosis on the lower quadrants, likely from heparin subcutaneous Extremities- no pretibial edema, no calf tenderness; peripheral pulses intact Neuro- alert, oriented x 2; CN 2-12 grossly intact; motor 5/5 bilaterally;sensation 100% on all extremities; no other gross focal neurologic deficits Skin- warm & dry Principal Diagnosis METABOLIC ENCEPHALOPATHY: MULTIFACTORIAL- VRE UTI, PNEUMONIA, HEPATIC ENCEPHALOPATHY, POLYPHARMACY Discharge Exam General- oriented x 3, not in distress, speaks in sentences with no effort or accessory muscle use Eyes- anicteric Neck- no JVD Lungs- clear BS BL Heart- normal rate, regular rhythm; no murmurs Abdomen- normal bowel sounds, nondistended, soft, nontender Extremities- no pretibial edema, no calf tenderness Neuro- alert, oriented x 3; no gross focal neurologic deficits Skin- warm & dry Discharge Data Allergies Allergy/AdvReac Type Severity Reaction Status Date / Time propoxyphene Allergy Mild Rash Verified 09/15/19 17:31 fentanyl AdvReac Intermediate PANIC Verified 09/15/19 17:31 WANTS TO RUN AND AGGRESSIVE zolpidem AdvReac Intermediate confusion Verified 09/15/19 17:31 methocarbamol AdvReac Mild DELERIUM Verified 09/15/19 17:31 Consultations 09/15/19 18:57 ED Decision to Admit Stat Ordered Studies 09/15/19 15:45 CT abd pelvis IV con only Stat FINDINGS: Interval development of a small parenchymal infiltrate right base. Persistent moderate splenomegaly. Kidneys are improved in overall appearance with a more uniform enhancement pattern and diminished perinephric and periureteral infiltrative change. Bowel pattern suggests fecal stasis. Bladder is midline. No significant free fluid within the pelvic cul-de-sac. IMPRESSION: 1. Improved right urinary tract with no significant residual pyelonephritis by CT criteria. 2. Interval development of a small parenchymal infiltrate right base. 3. Colonic fecal stasis. 09/15/19 20:53 CT head/brain wo con Stat Findings: The paranasal sinuses and mastoid air cells are clear. The calvarium and skull base are intact. The ventricles and sulci are within normal limits. There is no mass, hematoma, midline shift, or acute infarct. Mild age-related atrophy and chronic small vessel change. Impression: No acute intracranial abnormality. No change from the prior exam. Hospital Course (1) Encephalopathy: (1) ENCEPHALOPATHY LIKELY METABOLIC, MULTIFACTORIAL --CT head no acute process --Mental status much better overall, back to baseline, daughter agrees Recurrent UTI Was recently completed IV ertapenem for x2 weeks duration, last dose September 03, 2019 Urine culture: VRE Blood cultures: Negative so far Remains afebrile, urinary symptoms resolved transition from imipenem to Zosyn to daptomycin #3--> needs 7 more days of IV Daptomycin 500mg daily CBC, Comprehensive Metabolic Profile weekly while on IV Dapto follow up with Urology Hepatic encephalopathy On lactulose twice daily but patient not making more than 3 bowel movements per day as per patient's daughter Started rifaximin 550 mg twice daily Mental status significantly improved continue Lactulose and Rifaximin Pneumonia, possible healthcare associated versus aspiration Blood cultures negative given IV Imipenem then daptomycin and, doxycycline needs 1 more day of Doxycycline PO 100mg BID to complete 7days no problems with swallowing Polypharmacy Lower gabapentin dose Lower trazodone Hold PRN oxycodone Mental status improving with above changes, no changes with mood, good pain control (2) Constipation Tapwater enema ordered Milk of mag ordered --Positive BMs Continue to monitor -- please ensure 2-3 BMs per day to prevent hepatic encephalopathy (2) CAD (coronary artery disease): Denies cardiac symptoms (3) Chronic diastolic CHF (congestive heart failure): Chronic diastolic CHF with known moderate On admission, on the dry side, hold torsemide and Aldactone Has received IV fluids, DC for now Continue metoprolol but reduce by 50% in light of low blood pressure --Resume diuretics monitor volume status closely (4) Hypertension: On the low side Reduce metoprolol to 50% Hold Imdur BP systolic 110s to 130s monitor (5) DM type 2 (diabetes mellitus, type 2): Most recent Hba1c from 08/2019: 8 Per patient's daughter, patient was noted to have low blood glucose levels while at [facility] Hold insulin for now, except for insulin sliding scale Blood glucose levels within acceptable range, continue to monitor -- based on Insulin requirement while admitted, would recommend Lantus 10 units in AM d/c Dulaglutide, Metformin, Detemir monitor BSGs AC and HS and adjust Lantus accordingly (6) GONZALEZ (nonalcoholic steatohepatitis): Cirrhosis with portal hypertensive gastropathy Management per #1 (7) Hypothyroidism: Continue levothyroxine (8) Portal hypertensive gastropathy: (9) Gastroparesis: Positive constipation management per above (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: Gabapentin dose lowered in light of altered mental status tolerating well (12) Bipolar disorder: Continue Lamictal and Effexor (13) Anxiety: Takes clonazepam 0.5 mg twice daily as needed (14) Chronic pain syndrome: Continue morphine sulfate 50 mg every 12 hours, d/c oxycodone 5 mg 3 times daily as needed pain well controlled (15) DVT prophylaxis: Heparin subcutaneous twice a day given Disposition d/c to [facility] ff up with PCP 1 week after d/c from [facility] Plan of care discussed with patient and her daughter in detail and at length All questions were answered They are understanding, agreeable, comfortable with the plan of care Total Time Total Time Spent Total Time Spent (In Minutes): 80 minutes Discharge Plan Discharge Items Patient Disposition: Transfer Inpatient Rehab Fac Reason For Visit: ALTERED MENTAL STATUS Discharge Diagnosis: METABOLIC ENCEPHALOPATHY: MULTIFACTORIAL- VRE UTI, PNEUMONIA, HEPATIC ENCEPHALOPATHY, POLYPHARMACY Activity: Resume your previous activity Activity Comment: CONTINUE PT/OT Driving/Machine Use: NO DRIVING Non-emergency contact: Primary Care Provider Call non-emergency contact if: you have any medication questions, your symptoms worsen, your pain is not controlled and you have a fever Follow-up/Referrals: Brian Domínguez MD [Primary Care Provider] - Diet: Carb Consistent or DM2 and Heart Healthy Addtl Attending Provider Instructions: PLEASE REFER TO ACCOMPANYING HOSPITAL DISCHARGE SUMMARY FOR FULL DETAILS. Pending Studies at Discharge: No Stand-Alone Forms: [facility] Items Patient informed of condition?: Yes DNR: No Discharge Level of Care: Acute rehab Communicable Disease: Yes Discharge Prognosis: Stable Lines: Peripheral IV Urinary Catheter: No Medications and DC Order Prescriptions: New daptomycin 500 mg recon soln 500 mg IV DAILY 7 Days Qty: 7 RF: 0 doxycycline hyclate 100 mg Capsule 100 mg PO BID@0800,2000 1 Days Qty: 2 RF: 0 Xifaxan 550 mg Tablet 550 mg PO BID 30 Days Qty: 60 RF: 2 Lantus Solostar U-100 Insulin 100 unit/mL (3 mL) insulin pen 10 units SQ .AM Qty: 15 RF: 2 HurriCaine 20 % Gel 1 applic MT Q6H PRN (Reason: mouth irritation) 5 Days Qty: 28.4 RF: 0 Continued atorvastatin 80 mg tablet 80 mg PO HS RF: 0 ondansetron HCl 8 mg tablet 8 mg PO Q8H PRN (Reason: Nausea) RF: 0 famotidine 40 mg tablet 40 mg PO HS RF: 0 clonazepam 0.5 mg tablet 0.5 mg PO BID PRN (Reason: Anxiety) RF: 0 lamotrigine 25 mg tablet 25 mg PO BID RF: 0 levothyroxine 88 mcg tablet 88 mcg PO QAM RF: 0 omeprazole 20 mg capsule,delayed release(DR/EC) 20 mg PO BID RF: 0 dicyclomine 10 mg capsule 10 mg PO QID PRN (Reason: Abdominal Pain) RF: 0 lamotrigine 100 mg tablet 100 mg PO QAM RF: 0 aripiprazole 2 mg tablet 2 mg PO HS RF: 0 benzonatate 100 mg Capsule 100 mg PO TID PRN (Reason: Cough) RF: 0 nitroglycerin [Nitrostat] 0.4 mg Tablet, Sublingual 0.4 mg Sublingual DIRECTED PRN (Reason: Chest Pain) RF: 0 ergocalciferol (vitamin D2) 50,000 unit Capsule 50,000 units PO WK RF: 0 albuterol sulfate [Ventolin HFA] 90 mcg/actuation Hfa Aerosol Inhaler 2 puff INHALATION QID PRN (Reason: Shortness Of Breath Or Wheezing) RF: 0 magnesium oxide 400 mg Capsule 400 mg PO HS RF: 0 morphine 15 mg Tablet,Oral Only,Ext.Rel.12 Hr 15 mg PO Q12H RF: 0 lactulose 10 gram/15 mL (15 mL) Solution 30 ml PO BID Qty: 0 RF: 0 torsemide 20 mg tablet 20 mg PO QAM RF: 0 montelukast 10 mg Tablet 10 mg PO HS RF: 0 polyethylene glycol 3350 [Miralax] 17 gram/dose Powder 17 g PO QDL RF: 0 spironolactone 50 mg tablet 50 mg PO BID RF: 0 venlafaxine 75 mg capsule,extended release 24hr 225 mg PO QAM RF: 0 Changed gabapentin 600 mg tablet 300 mg PO BID Qty: 0 RF: 0 trazodone 150 mg tablet 75 mg PO HS Qty: 0 RF: 0 metoprolol succinate 25 mg tablet extended release 24 hr 12.5 mg PO BID 30 Days Qty: 0 RF: 0 Discontinued metformin 500 mg tablet 1,000 mg PO BID RF: 0 oxycodone 5 mg tablet 5 - 10 mg PO TID MDD 20mg PRN (Reason: Pain) RF: 0 dulaglutide 0.75 mg/0.5 mL pen injector 0.5 ml subcut WK RF: 0 loratadine 10 mg Tablet 10 mg PO DAILY PRN (Reason: Allergy Symptoms) RF: 0 isosorbide mononitrate 60 mg tablet extended release 24 hr 60 mg PO QAM RF: 0 oxybutynin chloride 10 mg Tablet Extended Release 24hr 10 mg PO HS RF: 0 Discharge Orders: Discharge Order (Routine); Ordered 09/20/19 Ordered By: Leroy Guevara Admission Data Admit Date/Time: 09/15/19 19:26 Attending Provider: Leroy Guevara Admit Provider: Leroy Guevara Primary Care Provider: Brian Domínguez Other Providers: Leroy Guevara ; [facility]
[2019-09-20] MEDS: clonazePAM 0.5 MG TAB PO PRN (15:49)
[2019-09-20] MEDS ORDERED: SPIRONOLACTONE 25 MG TAB PO SCH (21:00)
== END 2019-09-20 16:28 | DRG 441 ==
LOC: ED 15:10 → 2W 19:26

== ENCOUNTER 2020-01-16 10:25 | Inpatient (IN) ==
[2020-01-16] MEDS ORDERED: CEFEPIME 1,000 MG in SYRINGE 0 ML IV STA (10:41)
[2020-01-16] MEDS ORDERED: SODIUM CHLORIDE 0.9% 1000ML 1,000 ML IV ONE ×3 (10:41→13:34)
[2020-01-16] MEDS ORDERED: IBUPROFEN 200 MG TAB PO STA (10:42)
--- NOTE | 2020-01-16 10:45 | Emergency Department Note ---
Impression & Plan Sepsis, Pneumonia, Fever, Hypoxia ED Provider Note NAME: GILES SLOAN AGE: 69 SEX: F : 1950 ARRIVES VIA: Ambulance INFORMANT: Patient ED PROVIDER(S): Holland Harper DO CHIEF COMPLAINT: Fever HPI: Patient is a 69-year-old female with a extensive past medical history of UTI, CABG, pneumonia who lives at the [facility] and presents the ER for fever associated with diffuse myalgias and arthralgias as well as a cough. Patient notes that she woke up at 4 AM this morning and was having shaking chills. She had diffuse myalgias and arthralgias. Yesterday her cough started. She notes that she has been bringing up a small amount of mucus. Admits to belly pain but notes that her whole body hurts. Denies any dysuria urgency or frequency. No new open wounds or sores. No other exacerbating or remitting factors. She did take Tylenol. She has not been around anyone that she can think of with coronavirus but does note that the [facility] has had coronavirus. ROS: See above HPI for pertinent positives & negatives. A total of 10 systems reviewed and were otherwise negative. PAST MEDICAL HISTORY:See Below PAST SURGICAL HISTORY:See Below FAMILY HISTORY:See Below SOCIAL HISTORY:See Below HOME MEDICATIONS:See Below ALLERGIES:See Below VITALS:See Below PHYSICAL EXAMINATION: GENERAL: Sitting up in bed, alert, ill-appearing, disheveled, nontoxic EYE EXAM: normal conjunctiva. OROPHARYNX: no exudate, no erythema, lips, buccal mucosa, and tongue normal and mucous membranes are moist NECK: supple, no nuchal rigidity, no adenopathy, non-tender LUNGS: Clear to auscultation. Normal chest wall mechanics HEART: no murmurs, S1 normal and S2 normal ABDOMEN: abdomen soft, mild diffuse tenderness, normo-active bowel sounds, no masses, no rebound or guarding. BACK: Back is symmetrical on inspection and there is no deformity, no midline tenderness, no CVA tenderness. SKIN: no rashes and no bruising UPPER EXTREMITIES: upper extremities are grossly normal. LOWER EXTREMITIES: No pitting edema. NEURO EXAM: Normal sensorium, cranial nerves II-XII grossly intact, normal speech, no gross weakness of arms, no gross weakness of legs. MEDICAL DECISION MAKING: Patient is a 69-year-old female who presents the ER with a cough, fevers r eferred in from the [facility]. IV was established blood work was obtained. Labs show no significant leukocytosis or anemia. INR was unremarkable. BMP was unremarkable. Lactate was normal. Magnesium was 1.4. Troponin was elevated at 0.169. Respiratory viral panel was negative. Chest x-ray with a clear infiltrate. Patient was given IV fluids. She did drop her pressures once into the 80s. She is given 1.5 L normal saline and blood pressure came back up. She is given IV cefepime and Levaquin. Appropriate PPE was worn as they do have coronavirus at the [facility]. Patient was updated bedside and discussed with the hospitalist admitted for sepsis secondary to pneumonia. She was placed on 2 L as she did become slightly hypoxic. Triage Nursing notes reviewed. Prior medical records reviewed Vital Signs: reviewed and remarkable for hypoxia, hypotension Differential diagnosis: Differential diagnosis includes etiologies such as sepsis, UTI, pneumonia, metabolic, electrolyte abnormalities, cardiac sources, intracerebral event, toxicologic, neurological, as well as others were entertained. ER treatment provided: See below Diagnostics interpreted by me: ECG: Sinus rhythm rate of 95 Left axis T WI in aVL T WI V1 and V2 No PVCs Cardiac Monitoring: An order was placed for continuous cardiac monitoring. The monitor shows a rate of 98 with sinus rhythm. Laboratory studies: As stated above and show below. Imaging studies: Portable AP upright 1 view of the chest shows focal infiltrate Consultation(s): Discussed with hospitalist for admission ED COURSE: Procedures: none Critical Care: I have personally spent 31 minutes of critical care time in the direct management of this patient. This includes bedside care, interpretation of diagnostic studies, and testing, discussion with consultants, patient, and family members, and other required patient management activities. This 31 minutes is in excess of all separately billable procedures. Past Med/Surg History Medical History (Updated 01/16/20 @ 16:37 by Holland Harper DO) Anxiety (Chronic) Bipolar disorder (Chronic) CAD (coronary artery disease) (Chronic) History of multiple PCI's to the RCA with subsequent CABG x1 in 2010 x 1 vessel Most recent cardiac testing-negative DSE in December 2017 Follows w/ Dr. Blackwell and Dr. Lucas Ouaiyoe-Wbyzz-Qowkb disease (Chronic) follows w/ Dr. Lemus Chronic diastolic CHF (congestive heart failure) (Chronic) Chronic pain syndrome Depression DM type 2 (diabetes mellitus, type 2) (Chronic) IDDM Dyslipidemia (Chronic) Encephalopathy d/c from [facility] 09/20/19 (hepatic encephalopathy) Gastroparesis (Chronic) GERD (gastroesophageal reflux disease) Hypertension (Chronic) Hypothyroidism (Chronic) Irregular heart beat follows Dr. 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 Moderate aortic stenosis (Chronic) GONZALEZ (nonalcoholic steatohepatitis) (Chronic) Osteoarthritis Portal hypertensive gastropathy (Chronic) Spondylosis Urinary incontinence UTI (urinary tract infection) REASON FOR CIPRO Surgical History History of appendectomy (Chronic) History of back surgery (Chronic) sacral area History of cardiac cath multiple - most recent - 2 years ago @ [place] - FOR CP History of cataract surgery RT History of colonoscopy History of esophagogastroduodenoscopy (EGD) History of heart artery stent 2 yrs ago @ [facility] > unsure of how many stents > follows Dr. 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 Beliefs That Will Affect Care: None marital status: / Current Living Situation: Spouse Other Information That Helps Us Care for You: No Feels Safe at Home: Yes Safety Concerns: Feels Safe At This Time Smoking Status: Never smoker Second Hand Exposure: Yes (DAUGHTER SMOKES) ; Hx Alcohol Use: No Hx Substance Use: No Allergies Allergies Allergy/AdvReac Type Severity Reaction Status Date / Time propoxyphene Allergy Mild Rash Verified 01/16/20 13:03 fentanyl AdvReac Intermediate PANIC Verified 01/16/20 13:03 WANTS TO RUN AND AGGRESSIVE zolpidem AdvReac Intermediate confusion Verified 01/16/20 13:03 methocarbamol AdvReac Mild DELERIUM Verified 01/16/20 13:03 Home Meds Home Medications Medication Instructions Recorded Confirmed albuterol sulfate [Ventolin HFA] 2 puff INHALATION QID PRN 04/27/18 01/16/20 aripiprazole 2 mg PO HS 04/27/18 01/16/20 atorvastatin 80 mg PO HS 04/27/18 01/16/20 benzonatate 100 mg PO TID PRN 04/27/18 01/16/20 clonazepam 0.5 mg PO BID PRN 04/27/18 01/16/20 ergocalciferol (vitamin D2) 50,000 units PO TH 04/27/18 01/16/20 famotidine 40 mg PO HS 04/27/18 01/16/20 lamotrigine 25 mg PO BID 04/27/18 01/16/20 lamotrigine 100 mg PO QAM 04/27/18 01/16/20 levothyroxine 88 mcg PO QAM 04/27/18 01/16/20 magnesium oxide 400 mg PO HS 04/27/18 01/16/20 nitroglycerin [Nitrostat] 0.4 mg SUBLINGUAL DIRECTED PRN 04/27/18 01/16/20 omeprazole 20 mg PO BID 04/27/18 01/16/20 ondansetron HCl 8 mg PO Q8H PRN 04/27/18 01/16/20 torsemide 20 mg PO QAM 09/03/18 01/16/20 montelukast 10 mg PO HS 06/11/19 01/16/20 polyethylene glycol 3350 [Miralax] 17 g PO QDL 09/15/19 01/16/20 spironolactone 50 mg PO BID 09/15/19 01/16/20 venlafaxine 225 mg PO QAM 09/15/19 01/16/20 Basagldonald DamonikFausto U-100 Insulin 15 unit SUBCUT QAM 12/22/19 01/16/20 Trulicity 1.5 mg SUBCUT 12/22/19 01/16/20 morphine 15 mg PO BID 12/22/19 01/16/20 oxybutynin chloride [Ditropan XL] 10 mg PO HS 12/22/19 01/16/20 acetaminophen [Tylenol] 325 mg PO QID PRN 01/16/20 01/16/20 ibuprofen 200 mg PO Q6H PRN 01/16/20 01/16/20 Previous Rx's Medication Instructions Recorded lactulose 30 ml PO BID #0 ml 08/24/19 gabapentin 300 mg PO BID #0 tab 09/20/19 metoprolol succinate 12.5 mg PO BID 30 Days #0 tab 09/20/19 trazodone 75 mg PO HS #0 tab 09/20/19 Results & Data (ED) Vital Signs Vital Signs - 24 hr 01/16/20 10:30 01/16/20 11:00 01/16/20 11:30 Temperature 39.6 C H Temperature Source Oral Pulse Rate 93 H 92 H 93 H Pulse Rate from SpO2 Sensor 87 Pulse Rhythm Regular Pulse Strength Normal Respiratory Rate 20 21 30 H Respiratory Effort / Characteristics Non-Labored Spontaneous Respiratory Depth Normal Respiratory Pattern Regular Blood Pressure 149/91 H 137/71 128/72 Blood Pressure Mean 110 88 101 Pulse Oximetry 93 88 L Oxygen Delivery Method Room Air Oxygen Flow Rate Sepsis Recent Fever Within 48 Hours Yes Sepsis New/Unexplained Change in Mental Status No Sepsis Action Taken by Nursing No Action Required 01/16/20 11:50 01/16/20 12:01 01/16/20 12:31 Temperature Temperature Source Pulse Rate 93 H 94 H 92 H Pulse Rate from SpO2 Sensor 93 H 91 H Pulse Rhythm Regular Pulse Strength Respiratory Rate 20 21 24 Respiratory Effort / Characteristics Respiratory Depth Respiratory Pattern Blood Pressure 120/68 157/64 H Blood Pressure Mean 72 97 Pulse Oximetry 95 93 92 Oxygen Delivery Method Nasal Cannula Nasal Cannula Oxygen Flow Rate 2 2 Sepsis Recent Fever Within 48 Hours Sepsis New/Unexplained Change in Mental Status Sepsis Action Taken by Nursing 01/16/20 13:01 01/16/20 13:30 01/16/20 14:00 Temperature 37.8 C H Temperature Source Oral Pulse Rate 91 H 86 Pulse Rate from SpO2 Sensor 91 H 85 Pulse Rhythm Pulse Strength Respiratory Rate 27 H 24 Respiratory Effort / Characteristics Respiratory Depth Respiratory Pattern Blood Pressure 83/30 L 114/93 Blood Pressure Mean 59 105 Pulse Oximetry 94 93 Oxygen Delivery Method Nasal Cannula Oxygen Flow Rate 2 Sepsis Recent Fever Within 48 Hours Sepsis New/Unexplained Change in Mental Status Sepsis Action Taken by Nursing 01/16/20 14:01 Temperature Temperature Source Pulse Rate 87 Pulse Rate from SpO2 Sensor 87 Pulse Rhythm Pulse Strength Respiratory Rate 18 Respiratory Effort / Characteristics Respiratory Depth Respiratory Pattern Blood Pressure 119/57 L Blood Pressure Mean 75 Pulse Oximetry 93 Oxygen Delivery Method Oxygen Flow Rate Sepsis Recent Fever Within 48 Hours Sepsis New/Unexplained Change in Mental Status Sepsis Action Taken by Nursing Laboratory Data Result diagrams: 01/16/20 11:51 01/16/20 11:51 Lab Results 01/16/20 01/16/20 01/16/20 Range/Units 11:51 11:51 11:51 WBC 10.44 (4.8-10.8) K/uL RBC 4.56 (4.2-5.4) M/uL Hgb 11.4 L (12.0-16.0) g/dL Hct 36.5 L (37-47) % MCV 80.0 (80-100) fL MCH 25.0 (25-34) pg MCHC 31.2 L (32-36) g/dL RDW Std Deviation 49.4 H (36.4-46.3) fL RDW Coeff of Guillermo 17.0 H (11.5-14.5) % Plt Count 116 L (130-400) K/uL MPV 10.4 (7.4-10.4) fL Immature Gran % (Auto) 0.2 % Neut % (Auto) 85.0 % Lymph % (Auto) 8.5 % [place] % (Auto) 6.0 % Eos % (Auto) 0.2 % Baso % (Auto) 0.1 % Neut # (Auto) 8.87 H (1.4-6.5) K/uL Lymph # (Auto) 0.89 L (1.2-3.4) K/uL [place] # (Auto) 0.63 H (0.11-0.59) K/uL Eos # (Auto) 0.02 (0-0.5) K/uL Baso # (Auto) 0.01 (0-0.2) K/uL Immature Gran # (Auto) 0.02 (0.00-0.02) K/uL PT 11.1 (9.0-12.0) Seconds INR 1.1 (0.9-1.1) APTT 30.9 (21.0-31.0) Seconds PTT Ratio 1.1 Sodium 137 (136-145) mmol/L Potassium 4.5 (3.5-5.1) mmol/L Chloride 104 (98-107) mmol/L Carbon Dioxide 25 (21-32) mmol/L Anion Gap 8.0 (3-11) BUN 11 (7-18) mg/dl Creatinine 0.90 (0.6-1.2) mg/dl Est Cr Clr Drug Dosing 71.4 ml/min Est GFR ( Amer) 75.1 Est GFR (Non-Af Amer) 64.8 BUN/Creatinine Ratio 12.1 (10-20) Glucose 179 H (70-99) mg/dl Lactate (0.4-2.0) mmol/L Calcium 8.7 (8.5-10.1) mg/dl Magnesium 1.4 L (1.8-2.4) mg/dl Total Bilirubin 0.5 (0.2-1) mg/dl AST 14 L (15-37) U/L ALT 13 (12-78) U/L Alkaline Phosphatase 102 (45-117) U/L Troponin I 0.169 H* (0-0.045) ng/ml Total Protein 6.8 (6.4-8.2) gm/dl Albumin 3.3 L (3.4-5.0) gm/dl Globulin 3.5 (2.5-4.0) gm/dl Albumin/Globulin Ratio 0.9 (0.9-2) Adenovirus (PCR) (NotDetected) B. pertussis DNA (PCR) (NotDetected) B.parapertussis DNA PCR (NotDetected) C. pneumoniae DNA (PCR) (NotDetected) Coronavirus OC43 (PCR) (NotDetected) Coronavirus HKU1 (PCR) (NotDetected) Coronavirus 229E (PCR) (NotDetected) Coronavirus NL63 (PCR) (NotDetected) Human Metapneumovir PCR (NotDetected) Influenza Type A (PCR) (NotDetected) Influenza Type B (PCR) (NotDetected) M. pneumoniae (PCR) (NotDetected) Parainfluenza 1 (PCR) (NotDetected) Parainfluenza 2 (PCR) (NotDetected) Parainfluenza 3 (PCR) (NotDetected) Parainfluenza 4 (PCR) (NotDetected) RSV (PCR) (NotDetected) Entero/Rhino (PCR) (NotDetected) 01/16/20 01/16/20 Range/Units 11:51 12:02 WBC (4.8-10.8) K/uL RBC (4.2-5.4) M/uL Hgb (12.0-16.0) g/dL Hct (37-47) % MCV (80-100) fL MCH (25-34) pg MCHC (32-36) g/dL RDW Std Deviation (36.4-46.3) fL RDW Coeff of Guillermo (11.5-14.5) % Plt Count (130-400) K/uL MPV (7.4-10.4) fL Immature Gran % (Auto) % Neut % (Auto) % Lymph % (Auto) % [place] % (Auto) % Eos % (Auto) % Baso % (Auto) % Neut # (Auto) (1.4-6.5) K/uL Lymph # (Auto) (1.2-3.4) K/uL [place] # (Auto) (0.11-0.59) K/uL Eos # (Auto) (0-0.5) K/uL Baso # (Auto) (0-0.2) K/uL Immature Gran # (Auto) (0.00-0.02) K/uL PT (9.0-12.0) Seconds INR (0.9-1.1) APTT (21.0-31.0) Seconds PTT Ratio Sodium (136-145) mmol/L Potassium (3.5-5.1) mmol/L Chloride (98-107) mmol/L Carbon Dioxide (21-32) mmol/L Anion Gap (3-11) BUN (7-18) mg/dl Creatinine (0.6-1.2) mg/dl Est Cr Clr Drug Dosing ml/min Est GFR ( Amer) Est GFR (Non-Af Amer) BUN/Creatinine Ratio (10-20) Glucose (70-99) mg/dl Lactate 1.3 (0.4-2.0) mmol/L Calcium (8.5-10.1) mg/dl Magnesium (1.8-2.4) mg/dl Total Bilirubin (0.2-1) mg/dl AST (15-37) U/L ALT (12-78) U/L Alkaline Phosphatase (45-117) U/L Troponin I (0-0.045) ng/ml Total Protein (6.4-8.2) gm/dl Albumin (3.4-5.0) gm/dl Globulin (2.5-4.0) gm/dl Albumin/Globulin Ratio (0.9-2) Adenovirus (PCR) Not Detected (NotDetected) B. pertussis DNA (PCR) Not Detected (NotDetected) B.parapertussis DNA PCR Not Detected (NotDetected) C. pneumoniae DNA (PCR) Not Detected (NotDetected) Coronavirus OC43 (PCR) Not Detected (NotDetected) Coronavirus HKU1 (PCR) Not Detected (NotDetected) Coronavirus 229E (PCR) Not Detected (NotDetected) Coronavirus NL63 (PCR) Not Detected (NotDetected) Human Metapneumovir PCR Not Detected (NotDetected) Influenza Type A (PCR) Not Detected (NotDetected) Influenza Type B (PCR) Not Detected (NotDetected) M. pneumoniae (PCR) Not Detected (NotDetected) Parainfluenza 1 (PCR) Not Detected (NotDetected) Parainfluenza 2 (PCR) Not Detected (NotDetected) Parainfluenza 3 (PCR) Not Detected (NotDetected) Parainfluenza 4 (PCR) Not Detected (NotDetected) RSV (PCR) Not Detected (NotDetected) Entero/Rhino (PCR) Not Detected (NotDetected) Administered Medications Sodium Chloride (Nss 1000ml) 1,000 mls @ 100 mls/hr IV .Q10H ANGELLA Stop: 02/15/20 15:52 Last Admin: 01/16/20 16:20 Dose: 100 mls/hr Documented by: [id number] Discontinued Medications Sodium Chloride (Nss 1000ml) 1,000 mls @ 999 mls/hr IV .Q1H1M ONE Stop: 01/16/20 11:41 Last Infusion: 01/16/20 13:40 Dose: 0 mls/hr Documented by: [id number] Admin: 01/16/20 11:53 Dose: 999 mls/hr Documented by: [id number] Cefepime HCl 1,000 mg/ Syringe 11.3 mls @ 5.5 mls/min IV NOW STA; Protocol Stop: 01/16/20 10:43 Last Admin: 01/16/20 11:54 Dose: 5.5 mls/min Documented by: [id number] Levofloxacin/Dextrose (Levaquin/D5w) 750 mg in 150 mls @ 100 mls/hr IV NOW STA Stop: 01/16/20 13:58 Last Infusion: 01/16/20 14:15 Dose: 0 mls/hr Documented by: [id number] Admin: 01/16/20 12:43 Dose: 100 mls/hr Documented by: [id number] Sodium Chloride (Nss 1000ml) 1,000 mls @ 999 mls/hr IV .Q1H1M ONE Stop: 01/16/20 14:25 Last Infusion: 01/16/20 15:12 Dose: 0 mls/hr Documented by: [id number] Admin: 01/16/20 14:15 Dose: 999 mls/hr Documented by: [id number] Sodium Chloride (Nss 1000ml) 1,000 mls @ 999 mls/hr IV .Q1H1M ONE Stop: 01/16/20 14:34 Last Admin: 01/16/20 14:15 Dose: Not Given Documented by: [id number] Ibuprofen (Advil) 400 mg PO NOW STA Stop: 01/16/20 10:43 Last Admin: 01/16/20 11:54 Dose: 400 mg Documented by: [id number] Discharge Plan Visit Data Chief Complaint: Illness Stated Complaint: GENERAL ILLNESS ED Provider: Holland Harper Discharge Problem: Sepsis, Pneumonia, Fever, Hypoxia Discharge Instructions Interventions: ED Discharge Assessment Last Done: 01/16/20 15:20 Discharge Problem: Sepsis Qualifiers: Sepsis type: sepsis due to unspecified organism Sepsis acute organ dysfunction status: unspecified Qualified Code(s): A41.9 - Sepsis, unspecified organism Pneumonia Qualifiers: Pneumonia type: due to unspecified organism Laterality: unspecified laterality Lung location: unspecified part of lung Qualified Code(s): J18.9 - Pneumonia, unspecified organism Fever Qualifiers: Fever type: unspecified Qualified Code(s): R50.9 - Fever, unspecified
--- NOTE | 2020-01-16 11:28 | XRay Report ---
XR chest 1V portable CLINICAL HISTORY: SEPSIS COMPARISON STUDY: 09/15/2019 FINDINGS: There are postsurgical changes of midline sternotomy. The heart is normal in size. There ar e right lower lung zone airspace opacities suspicious for pneumonia. Clinical and radiographic follow -up is recommended. There are no significant pleural effusions. Arthritic changes are present within the shoulders.[ IMPRESSION: 1. Right lower lung zone airspace opacities suspicious for pneumonia. ACT 112: Negative or not required by law. Electronically signed by: Devang Wood M.D. 01/16/2020 11:26 AM
[2020-01-16 12:05] LABS: Basophils # (auto) 0.01 K/uL (0-0.2); Basophils % (auto) 0.1 %; Eosinophils # (auto) 0.02 K/uL (0-0.5); Eosinophils % (auto) 0.2 %; Hematocrit (blood only) 36.5 % (37-47); Hemoglobin 11.4 g/dL (12.0-16.0); Immature Granulocytes # (auto) 0.02 K/uL (0.00-0.02); Immature Granulocytes % (auto) 0.2 %; Lymphocytes # (auto) 0.89 K/uL (1.2-3.4); Lymphocytes % (auto) 8.5 %; Mean Corpuscular Hgb Conc 31.2 g/dL (32-36); Mean Platelet Volume 10.4 fL (7.4-10.4); Monocytes # (auto) 0.63 K/uL (0.11-0.59); Neutrophils # (auto) 8.87 K/uL (1.4-6.5); Platelet Count 116 K/uL (130-400); RDW Standard Deviation 49.4 fL (36.4-46.3); Red Blood Count 4.56 M/uL (4.2-5.4); White Blood Count 10.44 K/uL (4.8-10.8)
[2020-01-16 12:19] LABS: INR 1.1 (0.9-1.1); Partial Thromboplastin Ratio 1.1; Partial Thromboplastin Time 30.9 Seconds (21.0-31.0); Prothrombin Time 11.1 Seconds (9.0-12.0)
[2020-01-16 12:25] LABS: Albumin Level 3.3 gm/dl (3.4-5.0); BUN Creatinine Ratio 12.1 (10-20); Calcium 8.7 mg/dl (8.5-10.1); Creatinine Clr Calc Pharmacy 71.4 ml/min; Est GFR (African American) 75.1; Est GFR (Non-African American) 64.8; Magnesium 1.4 mg/dl (1.8-2.4); Potassium 4.5 mmol/L (3.5-5.1)
[2020-01-16] MEDS ORDERED: LEVOFLOXACIN/D5W 750 MG/150 ML BAG IV STA (12:29)
[2020-01-16 12:31] LABS: Albumin Globulin Ratio 0.9 (0.9-2); Bilirubin,Total 0.5 mg/dl (0.2-1); Globulin 3.5 gm/dl (2.5-4.0); Total Protein 6.8 gm/dl (6.4-8.2); Troponin I 0.169 ng/ml (0-0.045)
[2020-01-16 13:17] LABS: Adenovirus PCR Not Detected (NotDetected); Bordetella parapertussis PCR Not Detected (NotDetected); Bordetella pertussis PCR Not Detected (NotDetected); Chlamydia pneumoniae PCR Not Detected (NotDetected); Coronavirus 229E PCR Not Detected (NotDetected); Coronavirus HKU1 PCR Not Detected (NotDetected); Coronavirus NL63 PCR Not Detected (NotDetected); Coronavirus OC43PCR Not Detected (NotDetected); Human Metapneumovirus PCR Not Detected (NotDetected); Influenza A PCR Not Detected (NotDetected); Influenza B PCR Not Detected (NotDetected); Mycoplasma pneumoniae PCR Not Detected (NotDetected); Parainfluenza Virus 1 PCR Not Detected (NotDetected); Parainfluenza Virus 2 PCR Not Detected (NotDetected); Parainfluenza Virus 3 PCR Not Detected (NotDetected); Parainfluenza Virus 4 PCR Not Detected (NotDetected); Respiratory Syncytial VirusPCR Not Detected (NotDetected); Rhinovirus/Enterovirus PCR Not Detected (NotDetected)
--- NOTE | 2020-01-16 14:53 | History & Physical Report ---
Date of Service January 16, 2020 Assessment & Plan (1) Fever: (2) Cough: (3) CAP (community acquired pneumonia): Fever, chills, cough Temp of 39.6 Hypotensive episode 83/30. Now 119/57 Meets SIRS criteria (temp, Pulse, RR recorded) Sepsis secondary to pneumonia CXR showing RLL opacities Got 30cc/kg in ER Currently normotensive Will continue IVF for now Getting iv levofloxacine and cefepime Patient reported she has been treated with antibiotics within the past 2 months. Will continue cefepime and levofloxacin for now Blood cultures in lab Lactate is normal Get procal Hold antihypertensives or diuretic COVID test pending (4) Elevated troponin: Troponin 0.169 EKG did not show any ACS Patient does not have chest pain Will trend (5) CAD (coronary artery disease): s/p CABG and multiple PCI Continue atorvastatin (6) DM type 2 (diabetes mellitus, type 2): Continue home insulin regimen Accuchecks, Insulin sliding scale (7) Hypothyroidism: Continue levothyroxine (8) GONZALEZ (nonalcoholic steatohepatitis): Continue lactulose (9) Chronic pain syndrome: Continue home meds Confirmed opioids on PDMP Patient is on opioids and benzodiazepine High risk for side effects and overdose Counselled patient on this. Monitor for adverse effects/interactions (10) Hypomagnesemia: Mag is 1.4 Replete and monitor (11) DVT prophylaxis: Hep sq History of Present Illness 69 year old woman with history of GONZALEZ, Hypertension, Hypothyroidism, Diabetes mellitus, ASCVD and other medical problems as listed below who presented with fevers that started on waking up this morning. This was associated with myalgias, arthralgias and cough productive of scanty sputum. Patient also reported headache. Also had nausea which has currently resolved. Reported some abdominal discomfort but no pain Denied any dysuria, hematuria, no change in urinary frequency. Denied any sorethroat, rhinorrhea Denied any sick contacts or contact with anyone with COVID. She lives at the [facility] and does not know of anyone with COVID. Primary Care Provider: Brian Domínguez MD Allergies Allergy/AdvReac Type Severity Reaction Status Date / Time propoxyphene Allergy Mild Rash Verified 01/16/20 13:03 fentanyl AdvReac Intermediate PANIC Verified 01/16/20 13:03 WANTS TO RUN AND AGGRESSIVE zolpidem AdvReac Intermediate confusion Verified 01/16/20 13:03 methocarbamol AdvReac Mild DELERIUM Verified 01/16/20 13:03 Home Medications Home Medications Medication Instructions Recorded Confirmed Type albuterol sulfate [Ventolin HFA] 2 puff INHALATION QID PRN 04/27/18 01/16/20 History aripiprazole 2 mg PO HS 04/27/18 01/16/20 History atorvastatin 80 mg PO HS 04/27/18 01/16/20 History benzonatate 100 mg PO TID PRN 04/27/18 01/16/20 History clonazepam 0.5 mg PO BID PRN 04/27/18 01/16/20 History ergocalciferol (vitamin D2) 50,000 units PO TH 04/27/18 01/16/20 History famotidine 40 mg PO HS 04/27/18 01/16/20 History lamotrigine 25 mg PO BID 04/27/18 01/16/20 History lamotrigine 100 mg PO QAM 04/27/18 01/16/20 History levothyroxine 88 mcg PO QAM 04/27/18 01/16/20 History magnesium oxide 400 mg PO HS 04/27/18 01/16/20 History nitroglycerin [Nitrostat] 0.4 mg SUBLINGUAL DIRECTED PRN 04/27/18 01/16/20 History omeprazole 20 mg PO BID 04/27/18 01/16/20 History ondansetron HCl 8 mg PO Q8H PRN 04/27/18 01/16/20 History torsemide 20 mg PO QAM 09/03/18 01/16/20 History montelukast 10 mg PO HS 06/11/19 01/16/20 History lactulose 30 ml PO BID #0 ml 08/24/19 01/16/20 Rx polyethylene glycol 3350 [Miralax] 17 g PO QDL 09/15/19 01/16/20 History spironolactone 50 mg PO BID 09/15/19 01/16/20 History venlafaxine 225 mg PO QAM 09/15/19 01/16/20 History gabapentin 300 mg PO BID #0 tab 09/20/19 01/16/20 Rx metoprolol succinate 12.5 mg PO BID 30 Days #0 tab 09/20/19 01/16/20 Rx trazodone 75 mg PO HS #0 tab 09/20/19 01/16/20 Rx Basaglar KwikPen U-100 Insulin 15 unit SUBCUT QAM 12/22/19 01/16/20 History Trulicity 1.5 mg SUBCUT FR 12/22/19 01/16/20 History morphine 15 mg PO BID 12/22/19 01/16/20 History oxybutynin chloride [Ditropan XL] 10 mg PO HS 12/22/19 01/16/20 History acetaminophen [Tylenol] 325 mg PO QID PRN 01/16/20 01/16/20 History ibuprofen 200 mg PO Q6H PRN 01/16/20 01/16/20 History Past Med/Surg History Medical History (Updated 01/16/20 @ 15:29 by Azucena Smith MD) Anxiety (Chronic) Bipolar disorder (Chronic) CAD (coronary artery disease) (Chronic) History of multiple PCI's to the RCA with subsequent CABG x1 in 2010 x 1 vessel Most recent cardiac testing-negative DSE in December 2017 Follows w/ Dr. Blackwell and Dr. Lucas [id number]-Trldr disease (Chronic) follows w/ Dr. Lemus Chronic diastolic CHF (congestive heart failure) (Chronic) Chronic pain syndrome Depression DM type 2 (diabetes mellitus, type 2) (Chronic) IDDM Dyslipidemia (Chronic) Encephalopathy d/c from [facility] 09/20/19 (hepatic encephalopathy) Gastroparesis (Chronic) GERD (gastroesophageal reflux disease) Hypertension (Chronic) Hypothyroidism (Chronic) Irregular heart beat follows Dr. 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 Moderate aortic stenosis (Chronic) GONZALEZ (nonalcoholic steatohepatitis) (Chronic) Osteoarthritis Portal hypertensive gastropathy (Chronic) Spondylosis Urinary incontinence UTI (urinary tract infection) REASON FOR CIPRO Surgical History History of appendectomy (Chronic) History of back surgery (Chronic) sacral area History of cardiac cath multiple - most recent - 2 years ago @ [facility] History of cataract surgery RT History of colonoscopy History of esophagogastroduodenoscopy (EGD) History of heart artery stent 2 yrs ago @ [facility] > unsure of how many stents > follows Dr. Lucas History of total right knee replacement (Chronic) Hx of cholecystectomy (Chronic) S/P CABG x 1 (Chronic) 2011 - single vessel S/P CARLOS (total abdominal hysterectomy) (Chronic) Social History Preferred Language: Malawian Communication Ability: Effective Career Counselor Required: No Beliefs That Will Affect Care: None marital status: / Current Living Situation: Spouse Feels Safe at Home: Yes Smoking Status: Never smoker Second Hand Exposure: Yes (DAUGHTER SMOKES) ; Hx Alcohol Use: No Hx Substance Use: No Review of Systems Constitutional: + fever, + chills, + body aches, + fatigue and + malaise Eyes: no problem reported Ear, Nose, Mouth, Throat: no problem reported Respiratory: + cough; no dyspnea and no pain on inspiration Cardiovascular: no chest pain, no syncope and no edema Gastrointestinal: + nausea (Earlier in the day); no vomiting, no constipation and no diarrhea/loose stools Abdominal discomfort Genitourinary: no dysuria, no urinary urgency and no flank pain Musculoskeletal: Foot drop Neurologic: + headache(s) Psychiatric: no problem reported Physical Exam Constitutional: + well hydrated and + obese; no acute distress Eyes: PERRL, conjunctivae normal, anicteric sclerae ENMT: external ear and nose normal, oropharynx normal Respiratory: normal respiratory effort, lungs clear to auscultation Cardiovascular: Rate/Rhythm: regular rate and regular rhythm Extremities: no pedal edema S1 S2 Gastrointestinal (Abdomen): normal bowel sounds, soft, nontender, no hepatosplenomegaly Musculoskeletal: Bilateral foot drop Other muscle groups 5/5 Neurologic: PERRL, EOMI, accommodation nl, no face palsy, no dysarthria Psychiatric: A+Ox3, euthymic affect Results & Data Results & Data ([facility]) Vital Signs (Past 12 Hours) Vital Signs Temp Pulse Resp BP Pulse Ox 01/16/20 14:30 80 18 94/58 L 92 01/16/20 14:01 87 18 119/57 L 93 01/16/20 14:00 37.8 C H 01/16/20 13:30 86 24 114/93 93 01/16/20 13:01 91 H 27 H 83/30 L 94 01/16/20 12:31 92 H 24 157/64 H 92 01/16/20 12:01 94 H 21 120/68 93 01/16/20 11:50 93 H 20 95 01/16/20 11:30 93 H 30 H 128/72 88 L 01/16/20 11:00 92 H 21 137/71 01/16/20 10:30 39.6 C H 93 H 20 149/91 H 93 Laboratory Results Laboratory Results - last 24 hr 01/16/20 01/16/20 01/16/20 11:51 11:51 11:51 WBC 10.44 RBC 4.56 Hgb 11.4 L Hct 36.5 L MCV 80.0 MCH 25.0 MCHC 31.2 L RDW Std Deviation 49.4 H RDW Coeff of Guillermo 17.0 H Plt Count 116 L MPV 10.4 Immature Gran % (Auto) 0.2 Neut % (Auto) 85.0 Lymph % (Auto) 8.5 [place] % (Auto) 6.0 Eos % (Auto) 0.2 Baso % (Auto) 0.1 Neut # (Auto) 8.87 H Lymph # (Auto) 0.89 L [place]ette # (Auto) 0.63 H Eos # (Auto) 0.02 Baso # (Auto) 0.01 Immature Gran # (Auto) 0.02 PT 11.1 INR 1.1 APTT 30.9 PTT Ratio 1.1 Sodium 137 Potassium 4.5 Chloride 104 Carbon Dioxide 25 Anion Gap 8.0 BUN 11 Creatinine 0.90 Est Cr Clr Drug Dosing 71.4 Est GFR ( Amer) 75.1 Est GFR (Non-Af Amer) 64.8 BUN/Creatinine Ratio 12.1 Glucose 179 H Lactate Calcium 8.7 Magnesium 1.4 L Total Bilirubin 0.5 AST 14 L ALT 13 Alkaline Phosphatase 102 Troponin I 0.169 H* Total Protein 6.8 Albumin 3.3 L Globulin 3.5 Albumin/Globulin Ratio 0.9 Adenovirus (PCR) B. pertussis DNA (PCR) B.parapertussis DNA PCR C. pneumoniae DNA (PCR) Coronavirus OC43 (PCR) Coronavirus HKU1 (PCR) Coronavirus 229E (PCR) Coronavirus NL63 (PCR) Human Metapneumovir PCR Influenza Type A (PCR) Influenza Type B (PCR) M. pneumoniae (PCR) Parainfluenza 1 (PCR) Parainfluenza 2 (PCR) Parainfluenza 3 (PCR) Parainfluenza 4 (PCR) RSV (PCR) Entero/Rhino (PCR) SARS-CoV-2 RNA (RT-PCR) 01/16/20 01/16/20 01/16/20 11:51 12:02 12:02 WBC RBC Hgb Hct MCV MCH MCHC RDW Std Deviation RDW Coeff of Guillermo Plt Count MPV Immature Gran % (Auto) Neut % (Auto) Lymph % (Auto) Marinette % (Auto) Eos % (Auto) Baso % (Auto) Neut # (Auto) Lymph # (Auto) Marinette # (Auto) Eos # (Auto) Baso # (Auto) Immature Gran # (Auto) PT INR APTT PTT Ratio Sodium Potassium Chloride Carbon Dioxide Anion Gap BUN Creatinine Est Cr Clr Drug Dosing Est GFR ( Amer) Est GFR (Non-Af Amer) BUN/Creatinine Ratio Glucose Lactate 1.3 Calcium Magnesium Total Bilirubin AST ALT Alkaline Phosphatase Troponin I Total Protein Albumin Globulin Albumin/Globulin Ratio Adenovirus (PCR) Not Detected B. pertussis DNA (PCR) Not Detected B.parapertussis DNA PCR Not Detected C. pneumoniae DNA (PCR) Not Detected Coronavirus OC43 (PCR) Not Detected Coronavirus HKU1 (PCR) Not Detected Coronavirus 229E (PCR) Not Detected Coronavirus NL63 (PCR) Not Detected Human Metapneumovir PCR Not Detected Influenza Type A (PCR) Not Detected Influenza Type B (PCR) Not Detected M. pneumoniae (PCR) Not Detected Parainfluenza 1 (PCR) Not Detected Parainfluenza 2 (PCR) Not Detected Parainfluenza 3 (PCR) Not Detected Parainfluenza 4 (PCR) Not Detected RSV (PCR) Not Detected Entero/Rhino (PCR) Not Detected SARS-CoV-2 RNA (RT-PCR) Pending Diagnostic Findings CXR There are postsurgical changes of midline sternotomy. The heart is normal in size. There are right lower lung zone airspace opacities suspicious for pneumonia. Clinical and radiographic follow-up is recommended. There are no significant pleural effusions. Arthritic changes are present within the shoulders.[ IMPRESSION: 1. Right lower lung zone airspace opacities suspicious for pneumonia. ECG Additional Comments: EKG - NSR, rate 95, IL 162, QTc 417. Left axis deviation, TWI in anterior leads (present in 09/2019) Code Status & VTE Plan VTE Prophylaxis Plan VTE Prophylaxis will be ordered: Yes
[2020-01-16] MEDS ORDERED: BENZONATATE 100 MG CAPSULE PO PRN (15:53)
[2020-01-16] MEDS ORDERED: ALBUTEROL HFA 8 GM INHALER INH PRN (15:53)
[2020-01-16] MEDS ORDERED: CARBOHYDRATES FOR HYPOGLYCEMIA PO PRN (15:53)
[2020-01-16] MEDS ORDERED: GLUCOSE 10 TABS/TUBE PO PRN (15:53)
[2020-01-16] MEDS ORDERED: NITROGLYCERIN SL 0.4 MG/TAB TAB SL PRN (15:53)
[2020-01-16] MEDS ORDERED: DEXTROSE 50% 50 ML SYRINGE IV PRN (15:53)
[2020-01-16] MEDS ORDERED: GLUCOSE 40% GEL 15 GM TUBE PO PRN (15:53)
[2020-01-16] MEDS ORDERED: GLUCAGON FOR INJ 1 MG VIAL SQ PRN (15:53)
[2020-01-16] MEDS: SODIUM CHLORIDE 0.9% 1000ML 1,000 ML IV SCH (16:20)
[2020-01-16] MEDS: MAGNESIUM SULFATE / D5W 1 GM/100 ML BAG IV SCH ×2 (17:09→19:43)
[2020-01-16] MEDS: INSULIN ASPART 100 UNITS/ML 3 ML PEN SC SCH ×2 (17:28→21:59)
[2020-01-16] MEDS: ACETAMINOPHEN 325 MG TAB PO PRN (19:43)
[2020-01-16] MEDS: OXYBUTYNIN CHLORIDE XL 5 MG TABCR PO SCH (21:27)
[2020-01-16] MEDS: PANTOprazole 40 MG TAB PO SCH (21:27)
[2020-01-16] MEDS: MONTELUKAST SODIUM 10 MG TABLET PO SCH (21:27)
[2020-01-16] MEDS: FAMOTIDINE 40 MG TABLET PO SCH (21:27)
[2020-01-16] MEDS: LACTULOSE SYRUP 20 GM/30 ML UDC PO SCH (21:27)
[2020-01-16] MEDS: TRAZODONE HCL 50 MG TAB PO SCH (21:27)
[2020-01-16] MEDS: GABAPENTIN 300 MG CAP PO SCH (21:27)
[2020-01-16] MEDS: MoRPHine SULFATE CR 15 MG TABCR PO SCH (21:28)
[2020-01-16] MEDS: MAGNESIUM OXIDE 400 MG TAB PO SCH (21:28)
[2020-01-16] MEDS: ATORVASTATIN 40 MG TAB PO SCH (21:28)
[2020-01-16] MEDS: clonazePAM 0.5 MG TAB PO PRN (21:28)
[2020-01-16] MEDS: METOPROLOL SUCC 25MG EXT REL TAB PO SCH (21:28)
[2020-01-16] MEDS: lamoTRIgine 25 MG TAB PO SCH (21:28)
[2020-01-16] MEDS: CEFEPIME 2,000 MG in SYRINGE 7.5 ML IV SCH (21:34)
[2020-01-16] MEDS: ARIPIprazole 1 MG/ML ORAL SOLN 150 ML BTL PO SCH (21:34)
[2020-01-16] MEDS: HEPARIN SOD 5,000 UNIT/0.5 ML VIAL SQ SCH (21:59)
[2020-01-16 22:35] LABS: Appearance Urine Clear (Clear); Bacteria Urine Automated Negative (Negative); Bilirubin Urine Negative (Negative); Blood Urine Negative (Negative); Cast Urine Automated 0 /lpf (0-5); Color Urine Yellow; Glucose Urine UA Negative (Negative); Ketones Urine Negative (Negative); Leukocyte Esterase Urine Trace (Negative); Nitrite Urine Negative (Negative); Protein Urine Negative (Negative); RBC Urine Automated 0-4 /hpf (0-4); Specific Gravity Urine 1.008 (1.000-1.030); Urobilinogen Urine Negative (Negative)
[2020-01-17] MEDS: SODIUM CHLORIDE 0.9% 1000ML 1,000 ML IV SCH ×2 (02:23→12:16)
[2020-01-17] MEDS: ACETAMINOPHEN 325 MG TAB PO PRN ×2 (02:23→12:17)
[2020-01-17] MEDS: CEFEPIME 2,000 MG in SYRINGE 7.5 ML IV SCH ×3 (03:39→19:44)
[2020-01-17] MEDS: LEVOTHYROXINE SODIUM 88 MCG TABLET PO SCH (05:46)
[2020-01-17] MEDS: HEPARIN SOD 5,000 UNIT/0.5 ML VIAL SQ SCH ×3 (06:22→22:22)
[2020-01-17 07:47] LABS: Hematocrit (blood only) 31.4 % (37-47); Hemoglobin 9.7 g/dL (12.0-16.0); Mean Corpuscular Hemoglobin 24.7 pg (25-34); Mean Corpuscular Hgb Conc 30.9 g/dL (32-36); Mean Corpuscular Volume 80.1 fL (80-100); RDW Coefficient of Variation 17.3 % (11.5-14.5); RDW Standard Deviation 50.6 fL (36.4-46.3); Red Blood Count 3.92 M/uL (4.2-5.4); White Blood Count 6.83 K/uL (4.8-10.8)
[2020-01-17 07:51] LABS: Mean Platelet Volume 9.9 fL (7.4-10.4); Platelet Count 90 K/uL (130-400)
[2020-01-17] MEDS: LACTULOSE SYRUP 20 GM/30 ML UDC PO SCH ×2 (08:07→20:33)
[2020-01-17] MEDS: VENLAFAXINE HCL XR 75 MG CAPXR PO SCH (08:07)
[2020-01-17] MEDS: lamoTRIgine 100 MG TAB PO SCH (08:08)
[2020-01-17] MEDS: lamoTRIgine 25 MG TAB PO SCH ×2 (08:09→20:52)
[2020-01-17] MEDS: GABAPENTIN 300 MG CAP PO SCH ×2 (08:10→20:51)
[2020-01-17] MEDS: PANTOprazole 40 MG TAB PO SCH ×2 (08:10→20:54)
[2020-01-17] MEDS: METOPROLOL SUCC 25MG EXT REL TAB PO SCH ×2 (08:10→20:31)
[2020-01-17] MEDS: MoRPHine SULFATE CR 15 MG TABCR PO SCH ×2 (08:12→21:41)
[2020-01-17 08:15] LABS: BUN Creatinine Ratio 15.6 (10-20); Calcium 8.6 mg/dl (8.5-10.1); Creatinine Clr Calc Pharmacy 90.4 ml/min; Est GFR (Non-African American) 86.3; Potassium 4.5 mmol/L (3.5-5.1)
[2020-01-17] MEDS: INSULIN ASPART 100 UNITS/ML 3 ML PEN SC SCH ×4 (08:42→22:21)
[2020-01-17] MEDS: INSULIN GLARGINE SOLOSTAR 100 UNITS/ML 3 ML PEN SQ SCH (08:43)
[2020-01-17] MEDS ORDERED: VANCOMYCIN CONSULT ACTIVE PRN (10:36)
--- NOTE | 2020-01-17 10:58 | Pharmacy Report ---
Pharmacy Abx Initial Consult - Date of Service January 17, 2020 - Pharmacy Dosing Scope Date of Consult: 01/16 Consultation requested by: Dr. Smith Pharmacy is consulted to initiate vancomycin IV/PO dosing therapy, order appropriate labs and adjust drug dose/frequency. - Subjective The patient is a 69 year old F admitted on 01/16/20 14:27. - Objective Height: 5 ft 8 in Weight: 98.4 kg Vital Signs (Past 12hrs): Vital Signs Temp Pulse Pulse Resp BP Pulse Ox 01/17/20 08:00 65 94 01/17/20 07:55 37.0 C 83 16 90/61 L 01/17/20 03:29 37.1 C 73 16 95/61 L 93 01/16/20 23:35 37 C 75 16 97/63 L 95 Lab Results (24hrs): Laboratory Tests (24 Hours) 01/17/20 01/17/20 01/16/20 07:17 07:17 11:57 WBC 6.83 Neut # (Auto) Creatinine 0.71 Est Cr Clr Drug Dosing 90.4 Procalcitonin 0.34 01/16/20 01/16/20 11:51 11:51 WBC 10.44 Neut # (Auto) 8.87 H Creatinine 0.90 Est Cr Clr Drug Dosing 71.4 Procalcitonin Micro Results: 01/16/20 11:45 Anaerobic Blood Culture - Pending Blood 01/16/20 11:51 Aerobic Blood Culture - Pending Blood Anaerobic Blood Culture - Pending - Assessment & Plan Assessment 69 year old admitted with fever/cough and concern for CAP/sepsis. Receiving levofloxacin and cefepime currently. Vancomycin now ordered due to Gm positive cocci in blood cultures. Plan Vancomycin IV * Given vancomycin 2250 mg iv x 1 as a loading dose (~23 mg/kg) * Due to elevated BMI and increased risk of accumulation with vancomycin, used traditional pharmacokinetic dosing vs AUC dosing * Will start vancomycin 1250 mg (~13 mg/kg) iv q 10 hrs to achieve an estimated trough ~15-20 mcg/ml * Estimated kinetics: t1/2~9 hrs, ke~0.07 hrs-1, CrCl ~90 - appears to be at baseline renal function * Blood cx PCR - negative for both MSSA and MRSA, likely coag neg staph / will follow up to determine if clinically significant Pharmacy will continue to follow and will adjust dose/frequency as necessary. Thank you.
[2020-01-17] MEDS ORDERED: VANCOMYCIN HCL 2,250 MG in SODIUM CHLORIDE 0.9% 500 ML IV ONE (11:00)
[2020-01-17] MEDS: levoFLOXacin 750 MG TAB PO SCH (12:09)
--- NOTE | 2020-01-17 14:10 | Hospitalist Progress Note ---
Date of Service January 17, 2020 Assessment & Plan (1) Fever: (2) Cough: (3) CAP (community acquired pneumonia): Fever, chills, cough Temp of 39.6 Hypotensive episode 83/30. Now 119/57 Meets SIRS criteria (temp, Pulse, RR recorded) Sepsis secondary to pneumonia CXR showing RLL opacities Got 30cc/kg in ER Currently normotensive Will continue IVF for now Getting iv levofloxacine and cefepime Patient reported she has been treated with antibiotics within the past 2 months. Will continue cefepime and levofloxacin for now One blood culture growing GPC in clusters. Add vanc for now. Repeat blood cultures and follow up result Lactate is normal Hold antihypertensives or diuretic COVID test pending Anemia Hb was 11.4 on admission, now 9.7 No obvious bleeding Likely dilutional as all cell lines dropped Will monitor (4) Elevated troponin: Troponin 0.169-->0.196-->0.118 EKG did not show any ACS Patient does not have chest pain (5) CAD (coronary artery disease): s/p CABG and multiple PCI Continue atorvastatin (6) DM type 2 (diabetes mellitus, type 2): Continue home insulin regimen Accuchecks, Insulin sliding scale (7) Hypothyroidism: Continue levothyroxine (8) GONZALEZ (nonalcoholic steatohepatitis): Continue lactulose (9) Chronic pain syndrome: Continue home meds Reported she takes oxycodone prn for breakthrough pain. Also confirmed this on PDMP Patient is on opioids and benzodiazepine High risk for side effects and overdose Counselled patient on this. Monitor for adverse effects/interactions (10) Hypomagnesemia: Mag is 1.4 on admission Repleted (11) DVT prophylaxis: Hep sq Admission and Anticipated Discharge Date Admission Date: January 16, 2020 Subjective Patient seen and examined Still reports cough, myalgias Has been afebrile overnight No chills, chest pain No abd pain, diarrhea No dysuria, hematuria Physical Exam Constitutional: + well hydrated and + obese; no acute distress Eyes: PERRL, conjunctivae normal, anicteric sclerae ENMT: external ear and nose normal, oropharynx normal Respiratory: normal respiratory effort, lungs clear to auscultation Cardiovascular: Rate/Rhythm: regular rate and regular rhythm Extremities: no pedal edema Gastrointestinal (Abdomen): normal bowel sounds, soft, nontender, no hepatosplenomegaly Musculoskeletal: Bilateral foot drop Other muscle groups 5/5 Neurologic: PERRL, EOMI, accommodation nl, no face palsy, no dysarthria Psychiatric: A+Ox3, euthymic affect Results & Data Results & Data ([facility]) Vital Signs (Past 12 Hours) Vital Signs Temp Pulse Pulse Resp BP Pulse Ox 01/17/20 12:04 36.8 C 83 18 108/63 98 01/17/20 08:00 65 94 01/17/20 07:55 37.0 C 83 16 90/61 L 01/17/20 03:29 37.1 C 73 16 95/61 L 93 Laboratory Results Laboratory Results - last 24 hr 01/16/20 01/16/20 01/16/20 11:57 16:18 18:49 WBC RBC Hgb Hct MCV MCH MCHC RDW Std Deviation RDW Coeff of Guillermo Plt Count MPV Sodium Potassium Chloride Carbon Dioxide Anion Gap BUN Creatinine Est Cr Clr Drug Dosing Est GFR ( Amer) Est GFR (Non-Af Amer) BUN/Creatinine Ratio Glucose POC Glucose 137 H Calcium Magnesium Troponin I 0.196 H* Procalcitonin 0.34 Urine Color Urine Appearance Urine pH Ur Specific Lyle Urine Protein Urine Glucose (UA) Urine Ketones Urine Blood Urine Nitrite Urine Bilirubin Urine Urobilinogen Ur Leukocyte Esterase Urine WBC (Auto) Urine RBC (Auto) U Hyaline Cast (Auto) U Epithel Cells (Auto) Urine Bacteria (Auto) Nasal Screen MRSA (PCR) Bld Cult Staph aureus PCR Blood Culture MRSA PCR 01/16/20 01/16/20 01/17/20 21:20 Unknown 00:22 WBC RBC Hgb Hct MCV MCH MCHC RDW Std Deviation RDW Coeff of Guillermo Plt Count MPV Sodium Potassium Chloride Carbon Dioxide Anion Gap BUN Creatinine Est Cr Clr Drug Dosing Est GFR ( Amer) Est GFR (Non-Af Amer) BUN/Creatinine Ratio Glucose POC Glucose 135 H Calcium Magnesium Troponin I 0.118 H* Procalcitonin Urine Color Yellow Urine Appearance Clear Urine pH 7.0 Ur Specific Lyle 1.008 Urine Protein Negative Urine Glucose (UA) Negative Urine Ketones Negative Urine Blood Negative Urine Nitrite Negative Urine Bilirubin Negative Urine Urobilinogen Negative Ur Leukocyte Esterase Trace H Urine WBC (Auto) 1-5 Urine RBC (Auto) 0-4 U Hyaline Cast (Auto) 0 U Epithel Cells (Auto) 5-10 H Urine Bacteria (Auto) Negative Nasal Screen MRSA (PCR) Bld Cult Staph aureus PCR Blood Culture MRSA PCR 01/17/20 01/17/20 01/17/20 07:17 07:17 07:30 WBC 6.83 RBC 3.92 L Hgb 9.7 L Hct 31.4 L MCV 80.1 MCH 24.7 L MCHC 30.9 L RDW Std Deviation 50.6 H RDW Coeff of Guillermo 17.3 H Plt Count 90 L MPV 9.9 Sodium 137 Potassium 4.5 Chloride 106 Carbon Dioxide 25 Anion Gap 6.0 BUN 11 Creatinine 0.71 Est Cr Clr Drug Dosing 90.4 Est GFR ( Amer) 100.0 Est GFR (Non-Af Amer) 86.3 BUN/Creatinine Ratio 15.6 Glucose 108 H POC Glucose 118 H Calcium 8.6 Magnesium 2.0 Troponin I Procalcitonin Urine Color Urine Appearance Urine pH Ur Specific Lyle Urine Protein Urine Glucose (UA) Urine Ketones Urine Blood Urine Nitrite Urine Bilirubin Urine Urobilinogen Ur Leukocyte Esterase Urine WBC (Auto) Urine RBC (Auto) U Hyaline Cast (Auto) U Epithel Cells (Auto) Urine Bacteria (Auto) Nasal Screen MRSA (PCR) Bld Cult Staph aureus PCR Blood Culture MRSA PCR 01/17/20 01/17/20 01/17/20 11:20 11:45 12:30 WBC RBC Hgb Hct MCV MCH MCHC RDW Std Deviation RDW Coeff of Guillermo Plt Count MPV Sodium Potassium Chloride Carbon Dioxide Anion Gap BUN Creatinine Est Cr Clr Drug Dosing Est GFR ( Amer) Est GFR (Non-Af Amer) BUN/Creatinine Ratio Glucose POC Glucose 179 H Calcium Magnesium Troponin I Procalcitonin Urine Color Urine Appearance Urine pH Ur Specific Lyle Urine Protein Urine Glucose (UA) Urine Ketones Urine Blood Urine Nitrite Urine Bilirubin Urine Urobilinogen Ur Leukocyte Esterase Urine WBC (Auto) Urine RBC (Auto) U Hyaline Cast (Auto) U Epithel Cells (Auto) Urine Bacteria (Auto) Nasal Screen MRSA (PCR) Negative Bld Cult Staph aureus PCR Negative Blood Culture MRSA PCR Negative
--- NOTE | 2020-01-17 14:12 | Electrocardiogram Report ---
Test Reason : Blood Pressure : / mmHG Vent. Rate : 095 BPM Atrial Rate : 095 BPM P-R Int : 162 ms QRS Dur : 088 ms QT Int : 332 ms P-R-T Axes : 008 -33 069 degrees QTc Int : 417 ms Normal sinus rhythm Left axis deviation Poor R wave progression, consider anterior TX vs. lead placement vs. LVH Abnormal ECG When compared with ECG of 15-SEP-2019 15:42, Nonspecific T wave abnormality has replaced inverted T waves in Anterior leads Confirmed by Daniel Maharaj ([id number]) on 01/17/2020 2:12:07 PM Referred By: REFERRED SELF Confirmed By:Jarrell Maharaj
[2020-01-17] MEDS ORDERED: ACETAMINOPHEN 325 MG TAB PO ONE (16:29)
[2020-01-17] MEDS: OXYCODONE HCL IR 5 MG TAB (IMMEDIATE RELEASE) PO PRN ×2 (16:49→20:31)
[2020-01-17] MEDS: clonazePAM 0.5 MG TAB PO PRN (17:57)
[2020-01-17] MEDS: VANCOMYCIN HCL 1,250 MG in SODIUM CHLORIDE 0.9% 250 ML IV SCH (19:44)
[2020-01-17] MEDS ORDERED: KETOROLAC TROMETHAMINE 15 MG/ML VIAL IV ONE (19:52)
[2020-01-17] MEDS: ONDANSETRON 8MG OD TAB PO PRN (20:28)
[2020-01-17] MEDS: OXYBUTYNIN CHLORIDE XL 5 MG TABCR PO SCH (20:50)
[2020-01-17] MEDS: MONTELUKAST SODIUM 10 MG TABLET PO SCH (20:50)
[2020-01-17] MEDS: TRAZODONE HCL 50 MG TAB PO SCH (20:51)
[2020-01-17] MEDS: ARIPIprazole 1 MG/ML ORAL SOLN 150 ML BTL PO SCH (20:52)
[2020-01-17] MEDS: MAGNESIUM OXIDE 400 MG TAB PO SCH (20:53)
[2020-01-17] MEDS: ATORVASTATIN 40 MG TAB PO SCH (20:54)
[2020-01-17] MEDS: FAMOTIDINE 40 MG TABLET PO SCH (21:41)
[2020-01-18] MEDS: SODIUM CHLORIDE 0.9% 1000ML 1,000 ML IV SCH ×3 (01:03→21:32)
[2020-01-18] MEDS: CEFEPIME 2,000 MG in SYRINGE 7.5 ML IV SCH ×3 (04:55→20:05)
[2020-01-18] MEDS: ACETAMINOPHEN 325 MG TAB PO PRN ×2 (04:57→17:22)
[2020-01-18] MEDS: clonazePAM 0.5 MG TAB PO PRN (04:58)
[2020-01-18] MEDS: LEVOTHYROXINE SODIUM 88 MCG TABLET PO SCH (04:59)
[2020-01-18] MEDS: VANCOMYCIN HCL 1,250 MG in SODIUM CHLORIDE 0.9% 250 ML IV SCH (04:59)
[2020-01-18] MEDS: HEPARIN SOD 5,000 UNIT/0.5 ML VIAL SQ SCH ×3 (05:10→21:28)
[2020-01-18 07:20] LABS: Hematocrit (blood only) 30.3 % (37-47); Hemoglobin 9.7 g/dL (12.0-16.0); Mean Corpuscular Hemoglobin 24.8 pg (25-34); Mean Corpuscular Volume 77.5 fL (80-100); RDW Coefficient of Variation 17.3 % (11.5-14.5); RDW Standard Deviation 49.2 fL (36.4-46.3); Red Blood Count 3.91 M/uL (4.2-5.4); White Blood Count 8.81 K/uL (4.8-10.8)
[2020-01-18 07:59] LABS: BUN Creatinine Ratio 14.5 (10-20); Calcium 8.2 mg/dl (8.5-10.1); Creatinine Clr Calc Pharmacy 69.8 ml/min; Est GFR (African American) 73.1; Est GFR (Non-African American) 63.1; Potassium 4.5 mmol/L (3.5-5.1)
[2020-01-18] MEDS: lamoTRIgine 100 MG TAB PO SCH (08:20)
[2020-01-18] MEDS: GABAPENTIN 300 MG CAP PO SCH ×2 (08:20→21:25)
[2020-01-18] MEDS: VENLAFAXINE HCL XR 75 MG CAPXR PO SCH (08:20)
[2020-01-18] MEDS: METOPROLOL SUCC 25MG EXT REL TAB PO SCH ×2 (08:21→21:26)
[2020-01-18] MEDS: lamoTRIgine 25 MG TAB PO SCH ×2 (08:21→21:25)
[2020-01-18] MEDS: PANTOprazole 40 MG TAB PO SCH ×2 (08:22→21:27)
[2020-01-18] MEDS: LACTULOSE SYRUP 20 GM/30 ML UDC PO SCH ×2 (08:23→21:29)
[2020-01-18] MEDS: MoRPHine SULFATE CR 15 MG TABCR PO SCH ×2 (08:29→21:32)
[2020-01-18 08:42] LABS: Mean Platelet Volume 9.4 fL (7.4-10.4); Platelet Count 86 K/uL (130-400); Platelet Estimate Decreased (Normal)
[2020-01-18] MEDS: INSULIN ASPART 100 UNITS/ML 3 ML PEN SC SCH ×4 (08:49→21:38)
[2020-01-18] MEDS: INSULIN GLARGINE SOLOSTAR 100 UNITS/ML 3 ML PEN SQ SCH (08:50)
[2020-01-18] MEDS: ONDANSETRON 8MG OD TAB PO PRN ×2 (11:33→20:05)
--- NOTE | 2020-01-18 12:12 | Hospitalist Progress Note ---
Date of Service January 18, 2020 Assessment & Plan (1) Fever: (2) Cough: (3) CAP (community acquired pneumonia): Fever, chills, cough Temp of 39.6 Hypotensive episode 83/30. Now 119/57 Meets SIRS criteria (temp, Pulse, RR recorded) Sepsis secondary to pneumonia CXR showing RLL opacities Got 30cc/kg in ER Currently normotensive Will continue IVF for now Getting iv levofloxacine and cefepime Patient reported she has been treated with antibiotics within the past 2 months. Will continue cefepime and levofloxacin for now May be changed to po if patient remains afebrile and clinical improvement in 24- 48h One blood culture growing staph in clusters. Got vanc yesterday. MRSA screen neg. Will hold any further vanc dosing for now Follow up final blood culture results as well as repeat blood cultures Lactate is normal Hold antihypertensives or diuretic COVID test negative. Discontinue isolation precautions Anemia Hb was 11.4 on admission, stable at 9.7 No obvious bleeding Likely dilutional as all cell lines dropped Will monitor (4) Elevated troponin: Troponin 0.169-->0.196-->0.118 EKG did not show any ACS Patient does not have chest pain Likely demand (5) CAD (coronary artery disease): s/p CABG and multiple PCI Continue atorvastatin (6) DM type 2 (diabetes mellitus, type 2): Continue home insulin regimen Accuchecks, Insulin sliding scale (7) Hypothyroidism: Continue levothyroxine (8) GONZALEZ (nonalcoholic steatohepatitis): Continue lactulose (9) Chronic pain syndrome: Continue home meds Confirmed opioids on PDMP Patient is on opioids and benzodiazepine High risk for side effects and overdose Counselled patient on this. Monitor for adverse effects/interactions (10) Hypomagnesemia: Mag is 1.4 on admission Repleted (11) DVT prophylaxis: Hep sq Spoke with daughter per patient request and updated her Admission and Anticipated Discharge Date Admission Date: January 16, 2020 Subjective Patient seen and examined Reports cough productive of scanty sputum Denied any chest pain, shortness of breath Has not had any fevers since midnigh Reports feeling mildly better Physical Exam Constitutional: + well hydrated and + obese; no acute distress Eyes: PERRL, conjunctivae normal, anicteric sclerae ENMT: external ear and nose normal, oropharynx normal Respiratory: normal respiratory effort, lungs clear to auscultation Auscultation: no crackles Cardiovascular: Rate/Rhythm: regular rate and regular rhythm Extremities: no pedal edema Gastrointestinal (Abdomen): normal bowel sounds, soft, nontender, no hepatosplenomegaly Musculoskeletal: Bilateral foot drop (reported to be chronic) Other muscle groups 5/5 Neurologic: PERRL, EOMI, accommodation nl, no face palsy, no dysarthria Psychiatric: A+Ox3, euthymic affect Results & Data Results & Data ([facility]) Vital Signs (Past 12 Hours) Vital Signs Temp Pulse Pulse Resp BP Pulse Ox 01/18/20 08:00 37.5 C 98 H 98 H 18 113/67 96 01/18/20 03:32 37.4 C 97 H 24 109/68 95 Laboratory Results Laboratory Results - last 24 hr 01/16/20 01/17/20 01/17/20 12:02 12:30 15:57 WBC RBC Hgb Hct MCV MCH MCHC RDW Std Deviation RDW Coeff of Guillermo Plt Count MPV Platelet Estimate Sodium Potassium Chloride Carbon Dioxide Anion Gap BUN Creatinine Est Cr Clr Drug Dosing Est GFR ( Amer) Est GFR (Non-Af Amer) BUN/Creatinine Ratio Glucose POC Glucose 114 H Calcium Nasal Screen MRSA (PCR) Negative SARS-CoV-2 RNA (RT-PCR) NEGATIVE 01/17/20 01/18/20 01/18/20 20:48 07:00 07:00 WBC 8.81 RBC 3.91 L Hgb 9.7 L Hct 30.3 L MCV 77.5 L MCH 24.8 L MCHC 32.0 RDW Std Deviation 49.2 H RDW Coeff of Guillermo 17.3 H Plt Count 86 L MPV 9.4 Platelet Estimate Decreased L Sodium 132 L Potassium 4.5 Chloride 103 Carbon Dioxide 23 Anion Gap 6.0 BUN 13 Creatinine 0.92 Est Cr Clr Drug Dosing 69.8 Est GFR ( Amer) 73.1 Est GFR (Non-Af Amer) 63.1 BUN/Creatinine Ratio 14.5 Glucose 144 H POC Glucose 153 H Calcium 8.2 L Nasal Screen MRSA (PCR) SARS-CoV-2 RNA (RT-PCR) 01/18/20 01/18/20 08:02 11:26 WBC RBC Hgb Hct MCV MCH MCHC RDW Std Deviation RDW Coeff of Guillermo Plt Count MPV Platelet Estimate Sodium Potassium Chloride Carbon Dioxide Anion Gap BUN Creatinine Est Cr Clr Drug Dosing Est GFR ( Amer) Est GFR (Non-Af Amer) BUN/Creatinine Ratio Glucose POC Glucose 146 H 159 H Calcium Nasal Screen MRSA (PCR) SARS-CoV-2 RNA (RT-PCR)
[2020-01-18] MEDS: levoFLOXacin 750 MG TAB PO SCH (12:27)
[2020-01-18] MEDS: ARIPIprazole 1 MG/ML ORAL SOLN 150 ML BTL PO SCH (21:25)
[2020-01-18] MEDS: FAMOTIDINE 40 MG TABLET PO SCH (21:26)
[2020-01-18] MEDS: TRAZODONE HCL 50 MG TAB PO SCH (21:27)
[2020-01-18] MEDS: OXYBUTYNIN CHLORIDE XL 5 MG TABCR PO SCH (21:27)
[2020-01-18] MEDS: MAGNESIUM OXIDE 400 MG TAB PO SCH (21:27)
[2020-01-18] MEDS: MONTELUKAST SODIUM 10 MG TABLET PO SCH (21:28)
[2020-01-18] MEDS: ATORVASTATIN 40 MG TAB PO SCH (21:28)
[2020-01-19] MEDS: CEFEPIME 2,000 MG in SYRINGE 7.5 ML IV SCH ×2 (04:02→12:23)
[2020-01-19] MEDS: HEPARIN SOD 5,000 UNIT/0.5 ML VIAL SQ SCH ×3 (06:18→21:11)
[2020-01-19] MEDS: LEVOTHYROXINE SODIUM 88 MCG TABLET PO SCH (06:19)
[2020-01-19 06:29] LABS: Hematocrit (blood only) 27.7 % (37-47); Mean Corpuscular Hgb Conc 32.5 g/dL (32-36); Mean Corpuscular Volume 76.9 fL (80-100); RDW Coefficient of Variation 17.3 % (11.5-14.5); RDW Standard Deviation 48.9 fL (36.4-46.3); White Blood Count 4.03 K/uL (4.8-10.8)
[2020-01-19 06:30] LABS: Mean Platelet Volume 10.3 fL (7.4-10.4); Platelet Count 81 K/uL (130-400)
[2020-01-19 07:05] LABS: Creatinine Clr Calc Pharmacy 69.8 ml/min; Est GFR (African American) 71.2; Est GFR (Non-African American) 61.5; Potassium 4.1 mmol/L (3.5-5.1)
[2020-01-19] MEDS: METOPROLOL SUCC 25MG EXT REL TAB PO SCH ×2 (08:21→21:07)
[2020-01-19] MEDS: ONDANSETRON 8MG OD TAB PO PRN ×2 (08:22→14:38)
[2020-01-19] MEDS: PANTOprazole 40 MG TAB PO SCH ×2 (08:22→21:12)
[2020-01-19] MEDS: lamoTRIgine 100 MG TAB PO SCH (08:23)
[2020-01-19] MEDS: VENLAFAXINE HCL XR 75 MG CAPXR PO SCH (08:23)
[2020-01-19] MEDS: GABAPENTIN 300 MG CAP PO SCH ×2 (08:24→21:11)
[2020-01-19] MEDS: INSULIN GLARGINE SOLOSTAR 100 UNITS/ML 3 ML PEN SQ SCH (08:24)
[2020-01-19] MEDS: LACTULOSE SYRUP 20 GM/30 ML UDC PO SCH ×3 (08:24→21:06)
[2020-01-19] MEDS: INSULIN ASPART 100 UNITS/ML 3 ML PEN SC SCH ×4 (08:25→21:53)
[2020-01-19] MEDS: lamoTRIgine 25 MG TAB PO SCH ×2 (08:25→21:12)
[2020-01-19] MEDS: MoRPHine SULFATE CR 15 MG TABCR PO SCH ×2 (08:34→21:04)
[2020-01-19] MEDS: ACETAMINOPHEN 325 MG TAB PO PRN ×2 (08:34→19:35)
[2020-01-19] MEDS: SODIUM CHLORIDE 0.9% 1000ML 1,000 ML IV SCH (10:24)
[2020-01-19] MEDS: levoFLOXacin 750 MG TAB PO SCH (12:19)
[2020-01-19] MEDS: clonazePAM 0.5 MG TAB PO PRN ×2 (14:38→21:04)
--- NOTE | 2020-01-19 14:56 | Hospitalist Progress Note ---
Date of Service January 19, 2020 Assessment & Plan (1) Sepsis: 2/2 pneumonia. Resuscitated and feels almost back to baseline. (2) CAP (community acquired pneumonia): Vanc, Cefepime and Levaquin given this admission. Currently on cefepime and levaquin and tolerating well. Has been afebrile. Will cont with Levaquin monotherapy and transfer to med-surg. Will monitor overnight for stability and plan to dc to home in am. (3) Elevated troponin: Likely related to demand ischemia during initial sepsis syndrome. Consider outpatient stress test per PCP. (4) CAD (coronary artery disease): s/p CABG and multiple PCI. Continue atorvastatin and Toprol. It is unclear to me why she is not on a baby aspirin. She does have some thrombocytopenia with platelets typically hanging in the low 100s, however, she has a clear indication with h/o CABG. Will further review outpatient records for issues with this prior to starting. (5) DM type 2 (diabetes mellitus, type 2): On insulin at home; continued with basal bolus insulin here in the hospital. (6) Hypomagnesemia: Mag is 1.4 on admission. Repleted and will recheck in am. 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 Lactulose is scheduled, however, patient continues to decline this. Noted on narcotics, higher risk for hepatic encephalopathy if she doesn't maintain 2-3 bowel movements per day. Restarted furosemide and spironolactone with some puffiness in her feet noted today on exam. (8) Chronic pain syndrome: Continue home meds including MS Contin, PRN oxycodone and PRN Ativan Confirmed opioids on PDMP High risk for side effects and overdose Counselled patient on this. Monitor for adverse effects/interactions (9) Hypothyroidism: Continue levothyroxine per home regimen (10) DVT prophylaxis: Hep sq DNR Dispo-likely to home in am. Cristiane Mo DO [facility] Hospitalist Admission and Anticipated Discharge Date Admission Date: January 16, 2020 Subjective reports a feeling of nausea and anxiety that began this afternoon tolerating PO afebrile reports feeling much improved from admission. Ambulating at baseline. Review of Systems Review of Systems: All systems reviewed & are unremarkable except as noted in Subjective Physical Exam Physical Exam: CONSTITUTIONAL: obese, vitals as above, generally well- appearing EYES: pupils are equal bilaterally, normal conjunctivae, no scleral icterus ENT: external ear and nose normal, oropharynx clear, MMM RESPIRATORY: clear to auscultation bilaterally, no crackles, rales or wheezes, normal respiratory effort CARDIOVASCULAR: regular rate and rhythm, S1 and 2 heard without murmurs, gallops or rubs, no JVD, no peripheral edema GASTROINTESTINAL: soft, nontender, nondistended, no guarding. MUSCULOSKELETAL: strength 5/5 throughout, head is normocephalic and atraumatic SKIN: warm and dry, no rashes NEUROLOGIC: CN 2-12 grossly intact, normal cognition, normal speech, no gross focal deficits. PSYCHIATRIC: alert cooperative and oriented to person, place and time. Results & Data Results & Data ([facility]) Vital Signs (Past 12 Hours) Vital Signs Temp Pulse Pulse Resp BP BP Pulse Ox 01/19/20 11:48 36.9 C 83 18 124/70 96 01/19/20 08:45 91 H 01/19/20 07:54 37.0 C 72 18 121/64 96 01/19/20 03:10 36.6 C 82 20 110/74 98 Laboratory Results Short CBC 01/19/20 Range/Units 05:33 WBC 4.03 L (4.8-10.8) K/uL Hgb 9.0 L (12.0-16.0) g/dL Hct 27.7 L (37-47) % Plt Count 81 L (130-400) K/uL BMP 01/19/20 05:33 Sodium 136 Potassium 4.1 Chloride 107 Carbon Dioxide 23 BUN 12 Creatinine 0.94 Glucose 117 H Calcium 8.0 L Medications Administered Current Inpatient Medications Acetaminophen (Tylenol) 650 mg PO QID PRN PRN Reason: Fever Stop: 02/15/20 15:52 Last Admin: 01/19/20 08:34 Dose: 650 mg Documented by: Albuterol (Ventolin Hfa) 2 puffs INH QID PRN PRN Reason: Shortness Of Breath Or Wheezin Stop: 02/15/20 15:52 Aripiprazole (Abilify) 2 mg PO HS ANGELLA Stop: 02/15/20 20:59 Last Admin: 01/18/20 21:25 Dose: 2 mg Documented by: Atorvastatin Calcium (Lipitor) 80 mg PO HS ANGELLA Stop: 02/15/20 20:59 Last Admin: 01/18/20 21:28 Dose: 80 mg Documented by: Benzonatate (Tessalon Perle) 100 mg PO TID PRN PRN Reason: Cough Stop: 02/15/20 15:52 Clonazepam (Klonopin) 0.5 mg PO BID PRN PRN Reason: Anxiety Stop: 02/15/20 15:52 Last Admin: 01/19/20 14:38 Dose: 0.5 mg Documented by: Dextrose (Dextrose 50%) 25 - 50 ml IV UD PRN; Protocol PRN Reason: Hypoglycemia Protocol Stop: 02/15/20 15:52 Ergocalciferol (Vitamin D2) 50,000 units PO Th@0900 [facility] Stop: 02/19/20 08:59 Famotidine (Pepcid) 40 mg PO HS [facility] Stop: 02/15/20 20:59 Last Admin: 01/18/20 21:26 Dose: 40 mg Documented by: Gabapentin (Neurontin) 300 mg PO BID [facility] Stop: 02/15/20 20:59 Last Admin: 01/19/20 08:24 Dose: 300 mg Documented by: Glucagon (Glucagen) 1 mg SQ UD PRN; Protocol PRN Reason: Hypoglycemia Protocol Stop: 02/15/20 15:52 Glucose (Dex4 Glucose) 4 - 8 tabs PO UD PRN; Protocol PRN Reason: Hypoglycemia Protocol Stop: 02/15/20 15:52 Glucose (Glucose 40%) 15 - 30 gm PO UD PRN; Protocol PRN Reason: Hypoglycemia Protocol Stop: 02/15/20 15:52 Heparin Sodium (Porcine) (Heparin Sodium (Porcine)) 5,000 units SQ Q8 ANGELLA Stop: 02/15/20 21:59 Last Admin: 01/19/20 14:22 Dose: 5,000 units Documented by: Insulin Aspart (Novolog Flexpen) 0 units SC ACHS [facility] Stop: 02/15/20 16:29 Last Admin: 01/19/20 12:20 Dose: 2 units Documented by: Insulin Glargine (Lantus Solostar Pen) 15 units SQ QAM ANGELLA Stop: 02/16/20 08:59 Last Admin: 01/19/20 08:24 Dose: 15 units Documented by: Lactulose (Chronulac) 20 gm PO BID [facility] Stop: 02/15/20 20:59 Last Admin: 01/19/20 08:30 Dose: Not Given Documented by: Lamotrigine (Lamictal) 50 mg PO QPM [facility] Stop: 02/15/20 20:59 Last Admin: 01/18/20 21:25 Dose: 50 mg Documented by: [facility] ([facility]ictal) [facility] Stop: 02/16/20 08:59 Last Admin: 01/19/20 08:23 Dose: 100 mg Documented by: Lamotrigine (Lamictal) 25 mg PO QAM [facility] Stop: 02/16/20 08:59 Last Admin: 01/19/20 08:25 Dose: 25 mg Documented by: Levofloxacin (Levaquin) 750 mg PO DAILY@1100 ANGELLA; Protocol Stop: 01/24/20 10:59 Last Admin: 01/19/20 12:19 Dose: 750 mg Documented by: Levothy[facility]ine [facility]) [facility]: 02/16/20 06:29 Last Admin: 01/19/20 06:19 Dose: 88 mcg Documented by: Magnesium Oxide (Mag-Ox) 400 mg PO [facility] Stop: 02/15/20 20:59 Last Admin: 01/18/20 21:27 Dose: 400 mg Documented by: Metoprolol Succinate (Toprol Xl) 12.5 mg PO BID [facility] Stop: 02/15/20 20:59 Last Admin: 01/19/20 08:21 Dose: 12.5 mg Documented by: Miscellaneous (Carbohydrates For Hypoglycemia) 15 - 30 gm PO UD PRN PRN Reason: Hypoglycemia Protocol Stop: 02/15/20 15:52 Montelukast Sodium (Singulair) 10 mg PO [facility] Stop: 02/15/20 20:59 Last Admin: 01/18/20 21:28 Dose: 10 mg Documented by: Morphine Sulfate (Ms Contin) 15 mg PO BID [facility] Stop: 01/30/20 20:59 Last Admin: 01/19/20 08:34 Dose: 15 mg Documented by: Nitroglycerin (Nitrostat) 0.4 mg SL UD PRN PRN Reason: Chest Pain Stop: 02/15/20 15:52 Ondansetron HCl (Zofran Odt) 8 mg PO Q8H PRN PRN Reason: Nausea Stop: 02/15/20 16:39 Last Admin: 01/19/20 14:38 Dose: 8 mg Documented by: Oxybutynin Chloride (Ditropan Xl) 10 mg PO [facility] Stop: 02/15/20 20:59 Last Admin: 01/18/20 21:27 Dose: 10 mg Documented by: Oxycodone HCl (Roxicodone Immediate Rel) 5 mg PO TID PRN PRN Reason: Breakthrough Pain Stop: 01/31/20 14:16 Last Admin: 01/17/20 16:49 Dose: 5 mg Documented by: Pantoprazole Sodium (Protonix) 40 mg PO BID [facility] Stop: 02/15/20 20:59 Last Admin: 01/19/20 08:22 Dose: 40 mg Documented by: Trazodone HCl (Desyrel) 75 mg PO [facility] Stop: 02/15/20 20:59 Last Admin: 01/18/20 21:27 Dose: 75 mg Documented by: Venlafaxine HCl (Effexor Extended Release) 225 mg PO [facility] Stop: 02/16/20 08:59 Last Admin: 01/19/20 08:23 Dose: 225 mg Documented by: (1) Sepsis Sepsis acute organ dysfunction status: unspecified Sepsis type: sepsis due to unspecified organism Qualified Code(s): A41.9 - Sepsis, unspecified organism
[2020-01-19] MEDS: FAMOTIDINE 40 MG TABLET PO SCH (21:07)
[2020-01-19] MEDS: ATORVASTATIN 40 MG TAB PO SCH (21:11)
[2020-01-19] MEDS: ARIPIprazole 1 MG/ML ORAL SOLN 150 ML BTL PO SCH (21:11)
[2020-01-19] MEDS: TRAZODONE HCL 50 MG TAB PO SCH (21:12)
[2020-01-19] MEDS: MAGNESIUM OXIDE 400 MG TAB PO SCH (21:13)
[2020-01-19] MEDS: MONTELUKAST SODIUM 10 MG TABLET PO SCH (21:13)
[2020-01-19] MEDS: OXYBUTYNIN CHLORIDE XL 5 MG TABCR PO SCH (21:13)
[2020-01-19] MEDS: SPIRONOLACTONE 25 MG TAB PO SCH (21:25)
[2020-01-20] MEDS: OXYCODONE HCL IR 5 MG TAB (IMMEDIATE RELEASE) PO PRN (01:34)
[2020-01-20] MEDS: ACETAMINOPHEN 325 MG TAB PO PRN (05:23)
[2020-01-20] MEDS: HEPARIN SOD 5,000 UNIT/0.5 ML VIAL SQ SCH ×2 (05:24→12:45)
[2020-01-20] MEDS: LEVOTHYROXINE SODIUM 88 MCG TABLET PO SCH (05:24)
[2020-01-20 06:57] LABS: Hematocrit (blood only) 28.5 % (37-47); Hemoglobin 9.4 g/dL (12.0-16.0); Mean Corpuscular Hemoglobin 25.3 pg (25-34); Mean Corpuscular Volume 76.6 fL (80-100); RDW Coefficient of Variation 17.2 % (11.5-14.5); RDW Standard Deviation 48.8 fL (36.4-46.3); Red Blood Count 3.72 M/uL (4.2-5.4)
[2020-01-20 07:13] LABS: Mean Platelet Volume 9.8 fL (7.4-10.4); Platelet Count 85 K/uL (130-400)
[2020-01-20 07:27] LABS: Est GFR (Non-African American) 72.5
[2020-01-20] MEDS: clonazePAM 0.5 MG TAB PO PRN (08:20)
[2020-01-20] MEDS: PANTOprazole 40 MG TAB PO SCH (08:24)
[2020-01-20] MEDS: GABAPENTIN 300 MG CAP PO SCH (08:25)
[2020-01-20] MEDS: lamoTRIgine 25 MG TAB PO SCH ×2 (08:25→08:27)
[2020-01-20] MEDS: lamoTRIgine 100 MG TAB PO SCH (08:25)
[2020-01-20] MEDS: VENLAFAXINE HCL XR 75 MG CAPXR PO SCH (08:25)
[2020-01-20] MEDS: SPIRONOLACTONE 25 MG TAB PO SCH (08:26)
[2020-01-20] MEDS: METOPROLOL SUCC 25MG EXT REL TAB PO SCH (08:26)
[2020-01-20] MEDS: MoRPHine SULFATE CR 15 MG TABCR PO SCH (08:26)
[2020-01-20] MEDS: LACTULOSE SYRUP 20 GM/30 ML UDC PO SCH (08:27)
[2020-01-20] MEDS: INSULIN ASPART 100 UNITS/ML 3 ML PEN SC SCH ×2 (08:56→12:44)
[2020-01-20] MEDS: INSULIN GLARGINE SOLOSTAR 100 UNITS/ML 3 ML PEN SQ SCH (08:57)
[2020-01-20] MEDS ORDERED: TORSEMIDE 20 MG TAB PO SCH (09:00)
[2020-01-20] MEDS ORDERED: ERGOCALCIFEROL 50,000 UNITS CAP PO SCH (09:00)
[2020-01-20] MEDS: levoFLOXacin 750 MG TAB PO SCH (11:02)
[2020-01-20 11:47] LABS: Estimated Average Glucose 137 mg/dl; Hemoglobin A1C 6.4 % (4.5-5.6)
--- NOTE | 2020-01-20 14:33 | Discharge Summary ---
Date of Service January 20, 2020 Admission HPI Per Admitting Provider 69 year old woman with history of GONZALEZ, Hypertension, Hypothyroidism, Diabetes mellitus, ASCVD and other medical problems as listed below who presented with fevers that started on waking up this morning. This was associated with myalgias, arthralgias and cough productive of scanty sputum. Patient also reported headache. Also had nausea which has currently resolved. Reported some abdominal discomfort but no pain Denied any dysuria, hematuria, no change in urinary frequency. Denied any sorethroat, rhinorrhea Denied any sick contacts or contact with anyone with COVID. She lives at [facility] and does not know of anyone with COVID. Admission Exam Per Admitting Provider Constitutional: + well hydrated and + obese; no acute distress Eyes: PERRL, conjunctivae normal, anicteric sclerae ENMT: external ear and nose normal, oropharynx normal Respiratory: normal respiratory effort, lungs clear to auscultation Cardiovascular: Rate/Rhythm: regular rate and regular rhythm Extremities: no pedal edema S1 S2 Gastrointestinal (Abdomen): normal bowel sounds, soft, nontender, no hepatosplenomegaly Musculoskeletal: Bilateral foot drop Other muscle groups 5/5 Neurologic: PERRL, EOMI, accommodation nl, no face palsy, no dysarthria Psychiatric: A+Ox3, euthymic affect Principal Diagnosis Sepsis 2/2 Pneumonia-resuscitated Acute renal failure-resolved Hypomagnesemia Anemia Leukopenia Chronic pain syndrome Uncontrolled anxiety Discharge Exam CONSTITUTIONAL: obese, vitals as above, generally well-appearing EYES: pupils are equal bilaterally, normal conjunctivae, no scleral icterus ENT: external ear and nose normal, oropharynx clear, MMM RESPIRATORY: clear to auscultation bilaterally, no crackles, rales or wheezes, normal respiratory effort CARDIOVASCULAR: regular rate and rhythm, 3/6 DIMITRIS, gallops or rubs, no JVD, no peripheral edema-some of the foot puffiness from yesterday has improved today GASTROINTESTINAL: soft, nontender, nondistended, no guarding. MUSCULOSKELETAL: strength 5/5 throughout, head is normocephalic and atraumatic SKIN: warm and dry, no rashes NEUROLOGIC: CN 2-12 grossly intact, normal cognition, normal speech, no gross focal deficits. PSYCHIATRIC: alert cooperative and oriented to person, place and time. Discharge Data Allergies Allergy/AdvReac Type Severity Reaction Status Date / Time propoxyphene Allergy Mild Rash Verified 01/16/20 13:03 fentanyl AdvReac Intermediate PANIC Verified 01/16/20 13:03 WANTS TO RUN AND AGGRESSIVE zolpidem AdvReac Intermediate confusion Verified 01/16/20 13:03 methocarbamol AdvReac Mild DELERIUM Verified 01/16/20 13:03 Consultations 01/16/20 12:46 ED Decision to Admit Stat Hospital Course (1) Sepsis: (2) CAP (community acquired pneumonia): (3) CAD (coronary artery disease): (4) DM type 2 (diabetes mellitus, type 2): (5) Hypomagnesemia: (6) Cirrhosis of liver not due to alcohol: (7) Demand ischemia: 76-year-old female presented to the ER with fever cough and meeting SIRS criteria. She was found to have sepsis secondary to pneumonia with a chest x- ray revealing right lower lobe opacities. Her COVID status was negative. She had a mildly elevated troponin 0.169 thought likely to secondary to demand ischemia. She was placed on broad-spectrum antibiotics including Levaquin and cefepime and admitted to the hospital service. IV fluid resuscitation was continued. The following day she still reported cough and myalgias but was improved. She had a mild drop in H&H that was thought to be dilutional after IV fluid resuscitation for sepsis. She notably has coronary artery disease with a history of CABG and multiple PCIs in the past. Medical management did not include daily aspirin, however, the patient has thrombocytopenia likely secondary to cirrhosis with a baseline platelet count around 80K-100K. This is a relative contraindication as she is already prone to bleeding with her liver condition. Despite this would have a conversation with student recruiter or PCP as outpatient to ensure this is the thinking. She verbalized understanding with intent to comply. She continued to do well throughout the remainder of her hospitalization and remained afebrile approximately 48 hours prior to discharge. At time of discharge she was mentating and ambulating at baseline and tolerating p.o. She was oxygenating well on room air and was considered stable for discharge with close primary care follow-up recommended. Of note she was praised for her efforts with diabetes care as her A1c was found to be 6.4 from 8.0 checked back in August 2019. She was sent home to finish a course of Levaquin monotherapy and was advised against concomitant use of Zofran to avoid prolonged QT issues. Furthermore, magnesium was found to be 1.4 and was repleted during this hospitalization. Other lab abnormalities included leukopenia and anemia as described. Follow-up CBC and magnesium may be considered by primary care doctor in the next few weeks. Total Time Total Time Spent Total Time Spent (In Minutes): 60 Total Time Includes: Examination of the Patient, Discharge Planning, Medication Reconciliation and Communication With Other Providers Discharge Plan Discharge Items Patient Disposition: Home - Self-Care Reason For Visit: FEVERS, COUGH Discharge Diagnosis: Sepsis 2/2 Pneumonia-resuscitated Acute renal failure-resolved Hypomagnesemia Anemia Leukopenia Chronic pain syndrome Uncontrolled anxiety Activity: Resume your previous activity Non-emergency contact: Primary Care Provider Call non-emergency contact if: you have any medication questions, your symptoms worsen, your pain is concerning for you and you have a fever Follow-up/Referrals: Brian Domínguez MD [Primary Care Provider] - 01/25/20 12:00 pm (01/25/2020 12:00 PM Provider Luanne Caro [facility] ) Diet: Carb Consistent or DM2 and Low Sodium (2gm) Addtl Attending Provider Instructions: Please take all medications as instructed on discharge list below. Please follow-up with your primary care provider (PCP) at the date/time above. Topics to review at that time include repeating a CBC looking at WBC and blood count (H/H) specifically. Additionally, consideration should be given to a repeat CXR to ensure complete resolution of the pneumonia. Also, you were given magnesium replacement while hospitalized. This is another repeat lab you and your PCP may consider on follow-up. Finally, with your history of heart disease you should be taking aspirin daily. However, it may be that your platelet level is too low and your bleeding risk is too high for this. I would recommend specifically discussing this further with your student recruiter or PCP. There is a possible drug interaction between Zofran and your antibiotic (Levaquin). Please avoid Zofran while taking this antibiotic, until it is completed to avoid risk of this. It was a pleasure taking care of you! Please call if you have any questions or problems. You can reach a [facility] hospitalist on duty at [facility] 24 hours a day by calling [phone]. Take care of yourself. Cristiane Mo DO [facility] Hospitalist Pending Studies at Discharge: No Stand-Alone Forms: My [facility], Smoking Cessation Medications and DC Order Prescriptions: New levofloxacin 750 mg Tablet 750 mg PO DAILY@1100 Qty: 3 RF: 0 Continued atorvastatin 80 mg tablet 80 mg PO HS RF: 0 ondansetron HCl 8 mg tablet 8 mg PO Q8H PRN (Reason: Nausea) RF: 0 famotidine 40 mg tablet 40 mg PO HS RF: 0 clonazepam 0.5 mg tablet 0.5 mg PO BID PRN (Reason: Anxiety) RF: 0 lamotrigine 25 mg tablet 25 mg PO BID RF: 0 levothyroxine 88 mcg tablet 88 mcg PO QAM RF: 0 omeprazole 20 mg capsule,delayed release(DR/EC) 20 mg PO BID RF: 0 lamotrigine 100 mg tablet 100 mg PO QAM RF: 0 aripiprazole 2 mg tablet 2 mg PO HS RF: 0 benzonatate 100 mg Capsule 100 mg PO TID PRN (Reason: Cough) RF: 0 nitroglycerin [Nitrostat] 0.4 mg Tablet, Sublingual 0.4 mg Sublingual DIRECTED PRN (Reason: Chest Pain) RF: 0 ergocalciferol (vitamin D2) 50,000 unit Capsule 50,000 units PO TH RF: 0 albuterol sulfate [Ventolin HFA] 90 mcg/actuation Hfa Aerosol Inhaler 2 puff INHALATION QID PRN (Reason: Shortness Of Breath Or Wheezing) RF: 0 magnesium oxide 400 mg Capsule 400 mg PO HS RF: 0 lactulose 10 gram/15 mL (15 mL) Solution 30 ml PO BID Qty: 0 RF: 0 acetaminophen [Tylenol] 325 mg Tablet 325 mg PO QID PRN (Reason: Pain) RF: 0 ibuprofen 200 mg Tablet 200 mg PO Q6H PRN (Reason: Pain) RF: 0 morphine 15 mg Tablet Extended Release 15 mg PO Q12H RF: 0 torsemide 20 mg tablet 20 mg PO QAM RF: 0 montelukast 10 mg Tablet 10 mg PO HS RF: 0 Basaglar KwikPen U-100 Insulin 100 unit/mL (3 mL) Insulin Pen 15 unit SUBCUT QAM RF: 0 Trulicity 1.5 mg/0.5 mL Pen Injector 1.5 mg SUBCUT FR RF: 0 oxybutynin chloride [Ditropan XL] 10 mg Tablet Extended Release 24hr 10 mg PO HS RF: 0 polyethylene glycol 3350 [Miralax] 17 gram/dose Powder 17 g PO QDL RF: 0 spironolactone 50 mg tablet 50 mg PO BID RF: 0 venlafaxine 75 mg capsule,extended release 24hr 225 mg PO QAM RF: 0 gabapentin 600 mg tablet 300 mg PO BID Qty: 0 RF: 0 trazodone 150 mg tablet 75 mg PO HS Qty: 0 RF: 0 metoprolol succinate 25 mg tablet extended release 24 hr 12.5 mg PO BID 30 Days Qty: 0 RF: 0 Discharge Orders: Discharge Order (Routine); Ordered 01/20/20 Ordered By: Cristiane oM Admission Data Admit Date/Time: 01/16/20 14:27 Attending Provider: Cristiane Mo Admit Provider: Azucena Smith I. Primary Care Provider: Brian Domínguez Other Providers: Azucena Smith I. Other Interventions: Discharge Summary Assessment (RN) Last Done: 01/20/20 14:30 DC Date/Time DO NOT enter until pt leaves facility: 01/20/20 14:58
== END 2020-01-20 14:58 | disposition home or self-care (01) | DRG 871 ==
LOC: ED 10:25 → SUATTDRO 14:27 → 2S 14:27 → 3N 01-19 18:32

== ENCOUNTER 2020-03-21 12:25 | Observation (INO) ==
[2020-03-21] MEDS ORDERED: NITROGLYCERIN SL 0.4 MG/TAB TAB SL STA ×2 (12:56→14:22)
--- NOTE | 2020-03-21 13:00 | Emergency Department Note ---
Impression & Plan Chest pain, Blood glucose elevated, CAD (coronary artery disease) ED Provider Note NAME: GILES SLOAN AGE: 69 SEX: F : 1950 ARRIVES VIA: Ambulance INFORMANT: Patient ED PROVIDER(S): Holland Harper DO CHIEF COMPLAINT: Chest pain HPI: Patient is a 69-year-old female who presents the ER for midsternal/left sternal chest pressure. It started last night and has been intermittent. Currently describes as a 4 out of 10. She received aspirin and some nitro prior to arrival which improved the pain. She notes the pain is very minimal currently. Last night it was worse. There was a component with taking a deep breath and making it worse last night. Denies any nausea vomiting. No belly pain. No dysuria urgency or frequency. Pain radiated up to the neck into the arm. No shortness of breath. Does feel like her previous MS. She notes she has anywhere between 6-9 stents. Does have a CABG. Has not had a stent in several years per her report. ROS: See above HPI for pertinent positives & negatives. A total of 10 systems reviewed and were otherwise negative. PAST MEDICAL HISTORY:See Below PAST SURGICAL HISTORY:See Below FAMILY HISTORY:See Below SOCIAL HISTORY:See Below HOME MEDICATIONS:See Below ALLERGIES:See Below VITALS:See Below PHYSICAL EXAMINATION: GENERAL: Sitting up in bed, alert, chronically ill-appearing, disheveled, EYE EXAM: normal conjunctiva. OROPHARYNX: no exudate, no erythema, lips, buccal mucosa, and tongue normal and mucous membranes are moist NECK: supple, no nuchal rigidity, no adenopathy, non-tender LUNGS: Clear to auscultation. Normal chest wall mechanics HEART: no murmurs, S1 normal and S2 normal ABDOMEN: abdomen soft, non-tender, normo-active bowel sounds, no masses, no rebound or guarding. BACK: Back is symmetrical on inspection and there is no deformity, no midline tenderness, no CVA tenderness. SKIN: no rashes and no bruising UPPER EXTREMITIES: upper extremities are grossly normal. LOWER EXTREMITIES: No pitting edema. NEURO EXAM: Normal sensorium, cranial nerves II-XII grossly intact, normal s peech, no gross weakness of arms, no gross weakness of legs. MEDICAL DECISION MAKING: Patient is a 69-year-old female who presents the ER with precordial chest pain with a history of CAD, multiple stents and a CABG. IV was established blood work was obtained. Labs show no significant leukocytosis or anemia. INR was unremarkable. D-dimer was negative. BMP with mild hyponatremia. LFTs bilirubin were negative. Troponin was negative. Lipase was normal. TSH unre markable. EKG was unchanged from previous. Chest x-ray was unremarkable. Patient was given aspirin and nitro. She had resolution of her chest pain. She was updated bedside. She was discussed with the hospitalist for further evaluation. Triage Nursing notes reviewed. Prior medical records reviewed Vital Signs: reviewed and remarkable for no significant abnormalities Differential diagnosis: Differential diagnoses includes but is not limited to acute coronary syndrome, myocardial infarction, pericarditis, pulmonary embolus, aortic dissection, pneumonia, pneumothorax, musculoskeletal, shingles, esophageal. ER treatment provided: See below Diagnostics interpreted by me: ECG: Sinus rhythm rate of 67 Left axis TWI in septal leads ST depressions in the septal leads and high lateral leads Normal QTC No significant change from January 2020 Cardiac Monitoring: An order was placed for continuous cardiac monitoring. The monitor shows a rate of 75 with sinus rhythm. Laboratory studies: As stated above and show below. Imaging studies: Portable AP upright 1 view of the chest shows no focal infiltrate or pneumothorax Consultation(s): Discussed with hospitalist for further evaluation ED COURSE: Procedures: none Critical Care: None Past Med/Surg History Medical History Anxiety Bipolar disorder CAD (coronary artery disease) History of multiple PCI's to the RCA with subsequent CABG x1 in 2010 x 1 vessel Most recent cardiac testing-negative DSE in December 2017 Follows w/ Dr. Blackwell and Dr. Lucas Mbwzzgm-Wfnmu-Masog disease follows w/ Dr. Lemus Chronic diastolic CHF (congestive heart failure) Chronic pain syndrome Depression DM type 2 (diabetes mellitus, type 2) IDDM Dyslipidemia Encephalopathy d/c from [facility] 09/20/19 (hepatic encephalopathy) Gastroparesis GERD (gastroesophageal reflux disease) Hypertension Hypothyroidism Irregular heart beat follows Dr. 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 History of cataract surgery RT History of colonoscopy History of esophagogastroduodenoscopy (EGD) History of heart artery stent 2 yrs ago @ [facility] > unsure of how many stents > follows Dr. 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 Beliefs That Will Affect Care: None marital status: / Current Living Situation: Alone Other Information That Helps Us Care for You: No Feels Safe at Home: Yes Safety Concerns: Feels Safe At This Time Allergies Allergies Allergy/AdvReac Type Severity Reaction Status Date / Time propoxyphene Allergy Mild Rash Verified 03/21/20 15:06 fentanyl AdvReac Intermediate PANIC Verified 03/21/20 15:06 WANTS TO RUN AND AGGRESSIVE zolpidem AdvReac Intermediate confusion Verified 03/21/20 15:06 methocarbamol AdvReac Mild DELERIUM Verified 03/21/20 15:06 Home Meds Home Medications Medication Instructions Recorded Confirmed albuterol sulfate [Ventolin HFA] 2 puff INHALATION QID PRN 04/27/18 03/21/20 aripiprazole 2 mg PO HS 04/27/18 03/21/20 benzonatate 100 mg PO TID PRN 04/27/18 03/21/20 clonazepam 0.5 mg PO BID PRN 04/27/18 03/21/20 ergocalciferol (vitamin D2) 50,000 units PO TH 04/27/18 03/21/20 famotidine 40 mg PO HS 04/27/18 03/21/20 lamotrigine 25 mg PO UD 04/27/18 03/21/20 lamotrigine 100 mg PO QAM 04/27/18 03/21/20 levothyroxine 88 mcg PO QAM 04/27/18 03/21/20 nitroglycerin [Nitrostat] 0.4 mg SUBLINGUAL DIRECTED PRN 04/27/18 03/21/20 omeprazole 20 mg PO BID 04/27/18 03/21/20 ondansetron HCl 8 mg PO Q8H PRN 04/27/18 03/21/20 torsemide 20 mg PO QAM 09/03/18 03/21/20 montelukast 10 mg PO DAILY@1600 06/11/19 03/21/20 polyethylene glycol 3350 [Miralax] 17 g PO QDL 09/15/19 03/21/20 spironolactone 50 mg PO BID 09/15/19 03/21/20 venlafaxine 225 mg PO QAM 09/15/19 03/21/20 Basaglar KwikPen U-100 Insulin 15 unit SUBCUT QAM 12/22/19 03/21/20 Trulicity 1.5 mg SUBCUT FR 12/22/19 03/21/20 oxybutynin chloride [Ditropan XL] 10 mg PO HS 12/22/19 03/21/20 morphine 15 mg PO Q12H 01/16/20 03/21/20 aspirin [Aspir-81] 81 mg PO DAILY 03/21/20 03/21/20 metformin 1,000 mg PO BID 03/21/20 03/21/20 metoprolol succinate 50 mg PO BID 03/21/20 03/21/20 rifaximin [Xifaxan] 550 mg PO BID 03/21/20 03/21/20 trazodone 100 mg PO HS 03/21/20 03/21/20 Previous Rx's Medication Instructions Recorded lactulose 30 ml PO BID #0 ml 08/24/19 gabapentin 300 mg PO BID #0 tab 09/20/19 Results & Data (ED) Vital Signs Vital Signs - 24 hr 03/21/20 12:32 03/21/20 13:00 03/21/20 13:20 Temperature 36.9 C Temperature Source Oral Pulse Rate 71 64 Pulse Rate from SpO2 Sensor 64 Respiratory Rate 24 16 Respiratory Effort / Characteristics Non-Labored Spontaneous Respiratory Depth Normal Respiratory Pattern Regular Blood Pressure 134/70 125/54 L Blood Pressure Mean 91 73 Pulse Oximetry 99 95 94 Oxygen Delivery Method Nasal Cannula Room Air Oxygen Flow Rate 2 Sepsis Recent Fever Within 48 Hours No Sepsis New/Unexplained Change in Mental Status No Sepsis Action Taken by Nursing No Action Required 03/21/20 13:30 03/21/20 14:00 03/21/20 14:30 Temperature Temperature Source Pulse Rate 73 63 67 Pulse Rate from SpO2 Sensor 73 64 68 Respiratory Rate 21 15 13 Respiratory Effort / Characteristics Respiratory Depth Respiratory Pattern Blood Pressure 120/55 L 116/69 102/57 L Blood Pressure Mean 97 90 68 Pulse Oximetry 93 94 Oxygen Delivery Method Room Air Room Air Room Air Oxygen Flow Rate Sepsis Recent Fever Within 48 Hours Sepsis New/Unexplained Change in Mental Status Sepsis Action Taken by Nursing Laboratory Data Result diagrams: 03/21/20 13:05 03/21/20 13:05 Lab Results 03/21/20 03/21/20 03/21/20 Range/Units 13:05 13:05 13:05 WBC 5.39 (4.8-10.8) K/uL RBC 4.97 (4.2-5.4) M/uL Hgb 12.1 (12.0-16.0) g/dL Hct 38.8 (37-47) % MCV 78.1 L (80-100) fL MCH 24.3 L (25-34) pg MCHC 31.2 L (32-36) g/dL RDW Std Deviation 47.9 H (36.4-46.3) fL RDW Coeff of Guillermo 16.8 H (11.5-14.5) % Plt Count 130 (130-400) K/uL MPV 9.3 (7.4-10.4) fL Immature Gran % (Auto) 0.6 % Neut % (Auto) 60.0 % Lymph % (Auto) 23.9 % Fountain % (Auto) 10.8 % Eos % (Auto) 4.1 % Baso % (Auto) 0.6 % Neut # (Auto) 3.24 (1.4-6.5) K/uL Lymph # (Auto) 1.29 (1.2-3.4) K/uL Fountain # (Auto) 0.58 (0.11-0.59) K/uL Eos # (Auto) 0.22 (0-0.5) K/uL Baso # (Auto) 0.03 (0-0.2) K/uL Immature Gran # (Auto) 0.03 H (0.00-0.02) K/uL PT 10.4 (9.0-12.0) Seconds INR 1.0 (0.9-1.1) APTT 25.6 (21.0-31.0) Seconds PTT Ratio 0.9 D-Dimer 420 (0-500) ug/L FEU Sodium 135 L (136-145) mmol/L Potassium 4.2 (3.5-5.1) mmol/L Chloride 101 (98-107) mmol/L Carbon Dioxide 30 (21-32) mmol/L Anion Gap 4.0 (3-11) BUN 9 (7-18) mg/dl Creatinine 0.82 (0.6-1.2) mg/dl Est Cr Clr Drug Dosing 77.3 ml/min Est GFR ( Amer) 84.0 Est GFR (Non-Af Amer) 72.5 BUN/Creatinine Ratio 10.6 (10-20) Glucose 147 H (70-99) mg/dl Calcium 9.4 (8.5-10.1) mg/dl Total Bilirubin 0.5 (0.2-1) mg/dl AST 12 L (15-37) U/L ALT 14 (12-78) U/L Alkaline Phosphatase 94 (45-117) U/L Troponin I < 0.015 (0-0.045) ng/ml Total Protein 7.0 (6.4-8.2) gm/dl Albumin 3.5 (3.4-5.0) gm/dl Globulin 3.5 (2.5-4.0) gm/dl Albumin/Globulin Ratio 1.0 (0.9-2) Lipase 144 (73-393) U/L Administered Medications Insulin Aspart (Insulin Aspart 100 Units/Ml 3 Ml Pen) 0 units SC ACHS ANGELLA Stop: 04/20/20 17:59 Last Admin: 03/21/20 18:23 Dose: 2 units Documented by: [id number] Cosigned by: [id number] Nitroglycerin (Nitroglycerin 2% Ointment 30gm Tube) 0.5 inch EXT Q6H ANGELLA Stop: 04/20/20 15:59 Last Admin: 03/21/20 18:18 Dose: 0.5 inch Documented by: [id number] Discontinued Medications Nitroglycerin (Nitroglycerin Sl 0.4 Mg/Tab Tab) 0.4 mg SL NOW STA Stop: 03/21/20 12:57 Last Admin: 03/21/20 13:20 Dose: 0.4 mg Documented by: [id number] Nitroglycerin (Nitroglycerin Sl 0.4 Mg/Tab Tab) 0.4 mg SL NOW STA Stop: 03/21/20 14:23 Last Admin: 03/21/20 14:25 Dose: 0.4 mg Documented by: [id number] Ondansetron HCl (Ondansetron Inj 2 Mg/Ml 2 Ml Vial) 4 mg IV NOW STA Stop: 03/21/20 14:14 Last Admin: 03/21/20 14:22 Dose: 4 mg Documented by: [id number] Discharge Plan Visit Data Chief Complaint: Chest Pain Stated Complaint: Chest pain ED Provider: Holland Harper Discharge Problem: Chest pain, Blood glucose elevated, CAD (coronary artery disease) Patient Disposition: Admitted As Inpatient Discharge Instructions Interventions: ED Discharge Assessment Last Done: 03/21/20 16:59 Discharge Problem: Chest pain Qualifiers: Chest pain type: unspecified Qualified Code(s): R07.9 - Chest pain, unspecified
[2020-03-21 13:25] LABS: Basophils # (auto) 0.03 K/uL (0-0.2); Basophils % (auto) 0.6 %; Eosinophils # (auto) 0.22 K/uL (0-0.5); Eosinophils % (auto) 4.1 %; Hematocrit (blood only) 38.8 % (37-47); Hemoglobin 12.1 g/dL (12.0-16.0); Immature Granulocytes # (auto) 0.03 K/uL (0.00-0.02); Immature Granulocytes % (auto) 0.6 %; Lymphocytes # (auto) 1.29 K/uL (1.2-3.4); Lymphocytes % (auto) 23.9 %; Mean Corpuscular Hemoglobin 24.3 pg (25-34); Mean Corpuscular Hgb Conc 31.2 g/dL (32-36); Mean Corpuscular Volume 78.1 fL (80-100); Mean Platelet Volume 9.3 fL (7.4-10.4); Monocytes # (auto) 0.58 K/uL (0.11-0.59); Monocytes % (auto) 10.8 %; Neutrophils # (auto) 3.24 K/uL (1.4-6.5); Platelet Count 130 K/uL (130-400); RDW Coefficient of Variation 16.8 % (11.5-14.5); RDW Standard Deviation 47.9 fL (36.4-46.3); Red Blood Count 4.97 M/uL (4.2-5.4); White Blood Count 5.39 K/uL (4.8-10.8)
--- NOTE | 2020-03-21 13:29 | XRay Report ---
SINGLE VIEW CHEST CLINICAL HISTORY: Atypical chest pain. FINDINGS: An AP, portable, upright chest radiograph is compared to study dated 01/16/2020. The patient is status post midline sternotomy. The cardiomediastinal silhouette is unremarkable noting atheroscl erotic calcification of the thoracic aorta. There is chronic elevation of right hemidiaphragm and bib asilar atelectasis. No airspace consolidation or large pleural effusion is identified. No pneumothora x is seen. The skeletal structures are osteopenic. The bony thorax is grossly intact. Cholecystectomy clips are noted in the right upper quadrant. IMPRESSION: No active disease in the chest. ACT 112: Negative or not required by law. Electronically signed by: Berto Snow M.D. 03/21/2020 1:28 PM
[2020-03-21 13:40] LABS: D Dimer 420 ug/L FEU (0-500); Partial Thromboplastin Ratio 0.9; Partial Thromboplastin Time 25.6 Seconds (21.0-31.0); Prothrombin Time 10.4 Seconds (9.0-12.0)
[2020-03-21 13:41] LABS: Alanine Aminotransferase 14 U/L (12-78); Albumin Level 3.5 gm/dl (3.4-5.0); Aspartate Aminotransferase 12 U/L (15-37); BUN Creatinine Ratio 10.6 (10-20); Blood Urea Nitrogen 9 mg/dl (7-18); Calcium 9.4 mg/dl (8.5-10.1); Carbon Dioxide 30 mmol/L (21-32); Chloride 101 mmol/L (98-107); Creatinine Clr Calc Pharmacy 77.3 ml/min; Est GFR (Non-African American) 72.5; Glucose 147 mg/dl (70-99); Lipase 144 U/L (73-393); Potassium 4.2 mmol/L (3.5-5.1); Sodium 135 mmol/L (136-145)
[2020-03-21 13:46] LABS: Alkaline Phosphatase 94 U/L (45-117); Bilirubin,Total 0.5 mg/dl (0.2-1); Globulin 3.5 gm/dl (2.5-4.0); Troponin I < 0.015 ng/ml (0-0.045)
[2020-03-21] MEDS ORDERED: ONDANSETRON INJ 2 MG/ML 2 ML VIAL IV STA (14:13)
--- NOTE | 2020-03-21 15:21 | Electrocardiogram Report ---
Test Reason : Blood Pressure : / mmHG Vent. Rate : 067 BPM Atrial Rate : 067 BPM P-R Int : 180 ms QRS Dur : 096 ms QT Int : 392 ms P-R-T Axes : 020 -35 058 degrees QTc Int : 414 ms Normal sinus rhythm Left axis deviation Abnormal ECG When compared with ECG of 16-JAN-2020 11:50, No significant change was found Confirmed by Venkat Worrell ([id number]) on 03/21/2020 3:21:16 PM Referred By: Confirmed By:Venkat Worrell
--- NOTE | 2020-03-21 16:59 | History & Physical Report ---
Date of Service March 21, 2020 Assessment & Plan (1) Unstable angina: (2) CAD (coronary artery disease): This is a 69-year-old female who has significant past medical history of CAD with history of CABG x1 and multiple stents, T2DM, HTN, HLD, cirrhosis secondary to [place], diabetic gastroparesis, Charcot Rashmi tooth, neuropathy, chronic diastolic CHF, moderate left ear, GERD, portal hypertension gastropathy, thrombocytopenia, bipolar, anxiety, chronic pain syndrome secondary to back pain who presents to [facility] ED secondary to chest pain since 9 PM last evening. Initial troponin negative, EKG without ST or T wave changes. Spoke with on-call lease picker Dr. Prieto who did stat bedside echo, no wall motion abnormalities noted. That being said chest pain still concerning for unstable angina. She was scheduled for outpatient nuclear stress echo, which she canceled secondary to not feeling well. D-dimer was negative. Pain does get worse with deep inspiration and I am able to palpate discomfort, but patient states this is a different pain. Do not feel it is musculoskeletal or costochondritic. Less likely GERD/GI. Admit to telemetry under observation Cycle troponins N.p.o. after midnight for likely stress test in a.m. Defer further testing to cardiology Obtain lipid panel, A1c in a.m. Nitropaste 0.5 inch every 6 hours, hold for SBP less than 100 (3) DM type 2 (diabetes mellitus, type 2): A1c 6.1 12/14/2019 obtain A1c in a.m. Lantus/NovoLog per protocol (Home regimen includes Lantus 15 mg every morning If BSG > 150) (4) Chronic diastolic CHF (congestive heart failure): Most recent echocardiogram LVEF 61%, moderate aortic valve stenosis, grade 1 DD euvolemic continue metoprolol, torsemide daily weights, strict I and O, Heart Healthy, Low NA diet (5) Hypertension: blood pressure stable continue metoprolol (6) Dyslipidemia: Pt off statin 2/2 to concerns for ESPANA Cirrhosis per most recent cardiology note (7) Cirrhosis of liver not due to alcohol: Follows [facility] Euvolemic, no hepatic encephalopathy Continue torsemide, Aldactone, lactulose, Xifaxan (8) Hypothyroidism: Continue levothyroxine Obtain TSH (9) Bipolar disorder: (10) Anxiety: Patient with worsened anxiety in setting of increased stressors in life She also suffers from bipolar disorder Continue Effexor, Lamictal, Abilify, clonazepam and trazodone Mood stable (11) Chronic pain syndrome: Patient is on chronic morphine ER 50 mg twice daily and as needed oxycodone This was confirmed per PDMP Secondary to back pain (12) DVT prophylaxis: SCDS/TEDS for now assess daily need for chemical prophylaxis Disposition: admit to tele Follow up: PCP Dr. Domínguez upon discharge Pt was seen and examined in collaboration with Dr. Marroquin, please see addendum History of Present Illness Chief Complaint: Chest pain since 9pm last evening. Primary Care Provider: Brian Domínguez MD This is a 69-year-old female who has significant past medical history of CAD with history of CABG x1 and multiple stents, T2DM, HTN, HLD, cirrhosis secondary to [place], diabetic gastroparesis, Charcot Rashmi tooth, neuropathy, chronic diastolic CHF, moderate left ear, GERD, portal hypertension gastropathy, thrombocytopenia, bipolar, anxiety, chronic pain syndrome secondary to back pain who presents to [facility] ED secondary to chest pain since 9 PM last evening. Daughter is at bedside. She states when she went to get out of the car and walk into her house she developed left-sided precordial chest d iscomfort described as, "2 blocks sitting on her chest," associated with shortness of breath and nausea. Symptoms worsen as she persists to walk. When she got into her house she sat down which did improve her shortness of breath but chest heaviness was still present. Pain was then radiating to her left shoulder and jaw. She did take nitro x3 with improvement of symptoms but not complete relief. She states pain waxed and waned throughout the night. Symptoms made worse with deep breathing, nothing improves symptoms. She states she was seen and evaluated by cardiology who recommended nuclear stress test. She unfortunately canceled this 1 week ago due to not feeling well. Through the month of February she had been experiencing chest discomfort with exertion. Per Dr. Rutherford symptoms were concerning for unstable angina. She states symptoms she experienced last evening or much worse. She continues to feel a slight pressure across the chest described as, "half a brick." She did receive 2 sublingual nitro while in ED. She denies any diaphoresis or palpitations associate with event. She does complain of dizziness, "like the room is spinning," that was associated with last night symptoms. She states the dizziness has been off and on for several months. Dizziness can last for 2 to 3 hours and then resolves on own. She denies any recent fever, chills, sweats, lightheadedness, syncope, cough, emesis, abdominal pain, dysuria, increased urgency or frequency of urination, melena, hematochezia. Her appetite is overall diminished. She denies any lower extremity swelling or weight gain. She does live alone but has close family contact with her daughter who is at bedside. Allergies Allergy/AdvReac Type Severity Reaction Status Date / Time propoxyphene Allergy Mild Rash Verified 03/21/20 15:06 fentanyl AdvReac Intermediate PANIC Verified 03/21/20 15:06 WANTS TO RUN AND AGGRESSIVE zolpidem AdvReac Intermediate confusion Verified 03/21/20 15:06 methocarbamol AdvReac Mild DELERIUM Verified 03/21/20 15:06 Home Medications Home Medications Medication Instructions Recorded Confirmed Type albuterol sulfate [Ventolin HFA] 2 puff INHALATION QID PRN 04/27/18 03/21/20 History aripiprazole 2 mg PO HS 04/27/18 03/21/20 History benzonatate 100 mg PO TID PRN 04/27/18 03/21/20 History clonazepam 0.5 mg PO BID PRN 04/27/18 03/21/20 History ergocalciferol (vitamin D2) 50,000 units PO TH 04/27/18 03/21/20 History famotidine 40 mg PO HS 04/27/18 03/21/20 History lamotrigine 25 mg PO UD 04/27/18 03/21/20 History lamotrigine 100 mg PO QAM 04/27/18 03/21/20 History levothyroxine 88 mcg PO QAM 04/27/18 03/21/20 History nitroglycerin [Nitrostat] 0.4 mg SUBLINGUAL DIRECTED PRN 04/27/18 03/21/20 History omeprazole 20 mg PO BID 04/27/18 03/21/20 History ondansetron HCl 8 mg PO Q8H PRN 04/27/18 03/21/20 History torsemide 20 mg PO QAM 09/03/18 03/21/20 History montelukast 10 mg PO DAILY@1600 06/11/19 03/21/20 History lactulose 30 ml PO BID #0 ml 08/24/19 03/21/20 Rx polyethylene glycol 3350 [Miralax] 17 g PO QDL 09/15/19 03/21/20 History spironolactone 50 mg PO BID 09/15/19 03/21/20 History venlafaxine 225 mg PO QAM 09/15/19 03/21/20 History gabapentin 300 mg PO BID #0 tab 09/20/19 03/21/20 Rx Basaglar KwikPen U-100 Insulin 15 unit SUBCUT QAM 12/22/19 03/21/20 History Trulicity 1.5 mg SUBCUT FR 12/22/19 03/21/20 History oxybutynin chloride [Ditropan XL] 10 mg PO HS 12/22/19 03/21/20 History morphine 15 mg PO Q12H 01/16/20 03/21/20 History aspirin [Aspir-81] 81 mg PO DAILY 03/21/20 03/21/20 History metformin 1,000 mg PO BID 03/21/20 03/21/20 History metoprolol succinate 50 mg PO BID 03/21/20 03/21/20 History rifaximin [Xifaxan] 550 mg PO BID 03/21/20 03/21/20 History trazodone 100 mg PO HS 03/21/20 03/21/20 History Past Med/Surg History Medical History Anxiety Bipolar disorder CAD (coronary artery disease) History of multiple PCI's to the RCA with subsequent CABG x1 in 2010 x 1 vessel Most recent cardiac testing-negative DSE in December 2017 Follows w/ Dr. Blackwell and Dr. Lucas [id number]-[id number] disease follows w/ Dr. Lemus Chronic diastolic CHF (congestive heart failure) Chronic pain syndrome Depression DM type 2 (diabetes mellitus, type 2) IDDM Dyslipidemia Encephalopathy d/c from [facility] 09/20/19 (hepatic encephalopathy) Gastroparesis GERD (gastroesophageal reflux disease) Hypertension Hypothyroidism Irregular heart beat follows Dr. Lucas / Sobia Brewster Liver cirrhosis secondary to ESP[place] Moderate aortic stenosis ESPANA (nonalcoholic steatohepatitis) Osteoarthritis Portal hypertensive gastropathy Spondylosis Urinary incontinence UTI (urinary tract infection) REASON FOR CIPRO Surgical History History of appendectomy History of back surgery sacral area History of cardiac cath multiple - most recent - 2 years ago @ [facility] FOR CP History of cataract surgery RT History of colonoscopy History of esophagogastroduodenoscopy (EGD) History of heart artery stent 2 yrs ago @ [facility] > unsure of how many stents > follows Dr. Lucas History of total right knee replacement Hx of cholecystectomy S/P CABG x 1 2010 - single vessel S/P CARLOS (total abdominal hysterectomy) Family History Father Coronary heart disease Brother Coronary heart disease Father Diabetes Mother Diabetes Social History Smoking Status: Never smoker Second Hand Exposure: Yes (DAUGHTER SMOKES); Hx Alcohol Use: No Hx Substance Use: No Preferred Language: Tanzanian Communication Ability: Effective Sound Assistant Required: No Beliefs That Will Affect Care: None marital status: / Current Living Situation: Alone Other Information That Helps Us Care for You: No Feels Safe at Home: Yes Safety Concerns: Feels Safe At This Time Review of Systems Review of Systems: All systems reviewed & are unremarkable except as noted in HPI & below Physical Exam Physical Exam: Constitutional: WD/WN, F, vitals as above, NAD, sitting up in bed, pleasant, conversing easily Head: Normocephalic, Atraumatic Eyes: PERRL, conjunctivae normal, anicteric sclerae ENMT: external ear and nose normal, oropharynx normal Neck: trachea midline, no thyromegaly normal visual inspection Respiratory: normal respiratory effort, lungs clear to auscultation, no wheeze, rales, rhonchi. Normal insp/exp effort, no accessory muscle use Cardiovascular: RRR, 2/6 DIMITRIS heard best RUSB, no edema Vessels: no JVD or carotid bruit Chest: normal inspection of chest Abdomen: normal bowel sounds, soft, nontender, no hepatosplenomegaly Musculoskeletal: no cyanosis or clubbing, extremities motor strength 5/5 Skin: no rashes, warm and dry normal turgor Neurologic: PERRL, EOMI, accommodation nl, no face palsy, no dysarthria, no asterixis CN's II-XI intact bilaterally and moves all extremities Psychiatric: A+Ox3, euthymic affect Lymphatic: no cervical or axillary lymphadenopathy : deferred Results & Data Results & Data ([facility]) Vital Signs (Past 12 Hours) Vital Signs Temp Pulse Resp BP Pulse Ox 03/21/20 16:30 67 19 115/52 L 95 03/21/20 16:00 65 21 102/61 96 03/21/20 15:31 71 19 130/80 97 03/21/20 15:00 68 20 108/60 94 03/21/20 14:30 67 13 102/57 L 94 03/21/20 14:00 63 15 116/69 93 03/21/20 13:30 73 21 120/55 L 03/21/20 13:20 94 03/21/20 13:00 64 16 125/54 L 95 03/21/20 12:32 36.9 C 71 24 134/70 99 Laboratory Results Short CBC 03/21/20 Range/Units 13:05 WBC 5.39 (4.8-10.8) K/uL Hgb 12.1 (12.0-16.0) g/dL Hct 38.8 (37-47) % Plt Count 130 (130-400) K/uL BMP 03/21/20 13:05 Sodium 135 L Potassium 4.2 Chloride 101 Carbon Dioxide 30 BUN 9 Creatinine 0.82 Glucose 147 H Calcium 9.4 Cardiac Enzymes 03/21/20 Range/Units 13:05 Troponin I < 0.015 (0-0.045) ng/ml Liver Function 03/21/20 Range/Units 13:05 Total Bilirubin 0.5 (0.2-1) mg/dl AST 12 L (15-37) U/L ALT 14 (12-78) U/L Alkaline Phosphatase 94 (45-117) U/L Albumin 3.5 (3.4-5.0) gm/dl Diagnostic Findings CXR: IMPRESSION: No active disease in the chest. Medications Administered Discontinued Medications Nitroglycerin (Nitroglycerin Sl 0.4 Mg/Tab Tab) 0.4 mg SL NOW STA Stop: 03/21/20 12:57 Last Admin: 03/21/20 13:20 Dose: 0.4 mg Documented by: [id number] Nitroglycerin (Nitroglycerin Sl 0.4 Mg/Tab Tab) 0.4 mg SL NOW STA Stop: 03/21/20 14:23 Last Admin: 03/21/20 14:25 Dose: 0.4 mg Documented by: [id number] Ondansetron HCl (Ondansetron Inj 2 Mg/Ml 2 Ml Vial) 4 mg IV NOW STA Stop: 03/21/20 14:14 Last Admin: 03/21/20 14:22 Dose: 4 mg Documented by: [id number] ECG Rate (beats per minute): 67 Rhythm: normal sinus Code Status & VTE Plan Code Status Full Code VTE Prophylaxis Plan VTE Prophylaxis will be ordered: Yes Supervising Physician Co-Signing Physician Notes Pt was seen and examined. Agreed with Nayla MARQUEZ exam and plan. 69-year-old female who has significant past medical history of CAD with history of CABG x1 and multiple stents, T2DM, HTN, HLD, cirrhosis secondary to [place], diabetic gastroparesis, Charcot Rashmi tooth, neuropathy, chronic diastolic CHF, moderate left ear, GERD, portal hypertension gastropathy, thrombocytopenia, bipolar, anxiety, chronic back pain resent to the ER with c/o chest pain. Pt said that last night she developed left sided chest pain associated with SOB. She said that it feels like there is a very heavy block seating on his chest. She said that the chest pain radiated to her left shoulder and jaw area. Pt said that the chest pain feels like the same when she was transferred to hext for emergent stent. Received nitro in the ER that seemed to relief the pain. Troponin in the ER negative. EKG on admission showed no acute ischemic changes. Cardiology consulted. Bedside ECHO showed no wall motion abnormality. Will trend troponin. Continue aspirin and metoprolol. Will monitor closely in telemetry. Will make NPO after midnight for possible stress echo in morning. MD Cara
[2020-03-21] MEDS ORDERED: GLUCOSE 10 TABS/TUBE PO PRN (17:17)
[2020-03-21] MEDS ORDERED: ALUMINUM/MAGNESIUM SUSP 30 ML UDC PO PRN (17:17)
[2020-03-21] MEDS ORDERED: MAGNESIUM HYDROXIDE SUSP 30 ML UDC PO PRN (17:17)
[2020-03-21] MEDS ORDERED: ONDANSETRON INJ 2 MG/ML 2 ML VIAL IV PRN (17:17)
[2020-03-21] MEDS ORDERED: NITROGLYCERIN SL 0.4 MG/TAB TAB SL PRN (17:17)
[2020-03-21] MEDS ORDERED: CARBOHYDRATES FOR HYPOGLYCEMIA PO PRN (17:17)
[2020-03-21] MEDS ORDERED: ALBUTEROL HFA 8 GM INHALER INH PRN (17:17)
[2020-03-21] MEDS ORDERED: DEXTROSE 50% 50 ML SYRINGE IV PRN (17:17)
[2020-03-21] MEDS ORDERED: GLUCOSE 40% GEL 15 GM TUBE PO PRN (17:17)
[2020-03-21] MEDS ORDERED: GLUCAGON FOR INJ 1 MG VIAL SQ PRN (17:17)
[2020-03-21] MEDS ORDERED: POLYETHYLENE (MIRALAX) 17 GM PACK PO PRN (17:17)
[2020-03-21] MEDS: NITROGLYCERIN 2% OINTMENT 30GM TUBE EXT SCH ×2 (18:18→21:35)
[2020-03-21] MEDS: INSULIN ASPART 100 UNITS/ML 3 ML PEN SC SCH ×2 (18:23→20:36)
[2020-03-21 19:12] LABS: Troponin I < 0.015 ng/ml (0-0.045)
[2020-03-21] MEDS: clonazePAM 0.5 MG TAB PO PRN (20:06)
[2020-03-21] MEDS: ACETAMINOPHEN 325 MG TAB PO PRN (20:07)
[2020-03-21] MEDS: LACTULOSE SYRUP 20 GM/30 ML UDC PO SCH ×2 (20:07→20:19)
[2020-03-21] MEDS: MoRPHine SULFATE CR 15 MG TABCR PO SCH (20:07)
[2020-03-21] MEDS: lamoTRIgine 25 MG TAB PO SCH (20:10)
[2020-03-21] MEDS: GABAPENTIN 300 MG CAP PO SCH (20:10)
[2020-03-21] MEDS: RIFAXIMIN 550 MG TABLET PO SCH (20:10)
[2020-03-21] MEDS: TRAZODONE HCL 100 MG TAB PO SCH (20:11)
[2020-03-21] MEDS: METOPROLOL SUCC 50MG EXT REL TAB PO SCH (20:11)
[2020-03-21] MEDS: PANTOprazole 40 MG TAB PO SCH (20:11)
[2020-03-21] MEDS: FAMOTIDINE 40 MG TABLET PO SCH (20:11)
[2020-03-21] MEDS: SPIRONOLACTONE 25 MG TAB PO SCH ×2 (20:13→20:19)
[2020-03-21] MEDS: OXYBUTYNIN CHLORIDE XL 5 MG TABCR PO SCH (20:13)
[2020-03-21] MEDS: ARIPIprazole 1 MG/ML ORAL SOLN 150 ML BTL PO SCH (20:17)
[2020-03-22] MEDS: NITROGLYCERIN 2% OINTMENT 30GM TUBE EXT SCH ×4 (05:27→22:34)
[2020-03-22] MEDS: LEVOTHYROXINE SODIUM 88 MCG TABLET PO SCH (06:11)
[2020-03-22] MEDS: INSULIN GLARGINE SOLOSTAR 100 UNITS/ML 3 ML PEN SC SCH (06:28)
[2020-03-22 07:01] LABS: Hematocrit (blood only) 35.6 % (37-47); Hemoglobin 11.4 g/dL (12.0-16.0); Mean Corpuscular Hemoglobin 24.9 pg (25-34); Mean Corpuscular Volume 77.9 fL (80-100); Mean Platelet Volume 9.6 fL (7.4-10.4); Platelet Count 125 K/uL (130-400); RDW Coefficient of Variation 16.7 % (11.5-14.5); RDW Standard Deviation 47.4 fL (36.4-46.3); Red Blood Count 4.57 M/uL (4.2-5.4); White Blood Count 4.88 K/uL (4.8-10.8)
[2020-03-22 07:16] LABS: Estimated Average Glucose 131 mg/dl; Hemoglobin A1C 6.2 % (4.5-5.6)
[2020-03-22 07:36] LABS: Albumin Level 3.3 gm/dl (3.4-5.0); BUN Creatinine Ratio 11.2 (10-20); Calcium 8.7 mg/dl (8.5-10.1); Creatinine Clr Calc Pharmacy 65.4 ml/min; Est GFR (African American) 68.6; Est GFR (Non-African American) 59.2; Potassium 3.9 mmol/L (3.5-5.1)
[2020-03-22 07:39] LABS: Bilirubin,Total 0.4 mg/dl (0.2-1); Globulin 3.3 gm/dl (2.5-4.0); Total Protein 6.6 gm/dl (6.4-8.2)
[2020-03-22] MEDS: TORSEMIDE 20 MG TAB PO SCH (08:12)
[2020-03-22] MEDS: RIFAXIMIN 550 MG TABLET PO SCH ×2 (08:12→20:29)
[2020-03-22] MEDS: METOPROLOL SUCC 50MG EXT REL TAB PO SCH ×2 (08:12→20:29)
[2020-03-22] MEDS: PANTOprazole 40 MG TAB PO SCH ×2 (08:12→20:29)
[2020-03-22] MEDS: ASPIRIN 81 MG ECTAB PO SCH (08:13)
[2020-03-22] MEDS: lamoTRIgine 25 MG TAB PO SCH ×2 (08:13→20:28)
[2020-03-22] MEDS: lamoTRIgine 100 MG TAB PO SCH (08:13)
[2020-03-22] MEDS: SPIRONOLACTONE 25 MG TAB PO SCH ×2 (08:13→20:28)
[2020-03-22] MEDS: VENLAFAXINE HCL XR 75 MG CAPXR PO SCH (08:14)
[2020-03-22] MEDS: GABAPENTIN 300 MG CAP PO SCH ×2 (08:15→20:29)
[2020-03-22] MEDS: NYSTATIN POWDER 15GM BTL EXT PRN (08:15)
[2020-03-22] MEDS: MoRPHine SULFATE CR 15 MG TABCR PO SCH ×2 (08:20→20:29)
--- NOTE | 2020-03-22 08:43 | Cardiology Consultation ---
Date of Consultation March 22, 2020 Assessment & Plan (1) Chest pain: (2) S/P CABG x 1: (3) Moderate aortic stenosis: 6-year-old female admitted with chest discomfort and atypical features. No evidence of acute coronary syndrome with undetectable cardiac enzymes, nonischemic ECG, and normal resting wall motion during periods of chest discomfort on echocardiogram. Recommend pharmacologic, dobutamine stress echo, for further evaluation/stratification. Patient agreeable. Further r ecommendations pending result of stress testing. History of Present Illness Reason for Consultation: Chest pain Requesting Physician: Dr. Mccormack Attending Physician: Jesus Mccormack MD History of Present Illness 69-year-old female presents the emergency department with chest discomfort. Patient reports chest pain on the evening prior to admission. Overnight chest pain became severe at times. She used sublingual nitroglycerin with mild relief. In the ER, patient reports 4/10 chest pain. Treated with sublingual nitroglycerin. Discomfort greatly improved. Mild tightness resolved overnight. Cardiac enzymes are undetectable. ECG on admission without ischemic changes. Bedside 2D transthoracic echocardiogram performed in the ER demonstrates normal wall motion. This morning, patient feeling better from a cardiovascular perspective. Mild chest ache unchanged. No shortness of breath. Telemetry demonstrates sinus rhythm with out dysrhythmia. No orthopnea, PND, or lower extremity edema. Requesting discharge if possible. Allergies Allergy/AdvReac Type Severity Reaction Status Date / Time propoxyphene Allergy Mild Rash Verified 03/21/20 15:06 fentanyl AdvReac Intermediate PANIC Verified 03/21/20 15:06 WANTS TO RUN AND AGGRESSIVE zolpidem AdvReac Intermediate confusion Verified 03/21/20 15:06 methocarbamol AdvReac Mild DELERIUM Verified 03/21/20 15:06 Home Medications Home Medications Medication Instructions Recorded Confirmed Type albuterol sulfate [Ventolin HFA] 2 puff INHALATION QID PRN 04/27/18 03/21/20 History aripiprazole 2 mg PO HS 04/27/18 03/21/20 History benzonatate 100 mg PO TID PRN 04/27/18 03/21/20 History clonazepam 0.5 mg PO BID PRN 04/27/18 03/21/20 History ergocalciferol (vitamin D2) 50,000 units PO TH 04/27/18 03/21/20 History famotidine 40 mg PO HS 04/27/18 03/21/20 History lamotrigine 25 mg PO UD 04/27/18 03/21/20 History lamotrigine 100 mg PO QAM 04/27/18 03/21/20 History levothyroxine 88 mcg PO QAM 04/27/18 03/21/20 History nitroglycerin [Nitrostat] 0.4 mg SUBLINGUAL DIRECTED PRN 04/27/18 03/21/20 History omeprazole 20 mg PO BID 04/27/18 03/21/20 History ondansetron HCl 8 mg PO Q8H PRN 04/27/18 03/21/20 History torsemide 20 mg PO QAM 09/03/18 03/21/20 History montelukast 10 mg PO DAILY@1600 06/11/19 03/21/20 History lactulose 30 ml PO BID #0 ml 08/24/19 03/21/20 Rx polyethylene glycol 3350 [Miralax] 17 g PO QDL 09/15/19 03/21/20 History spironolactone 50 mg PO BID 09/15/19 03/21/20 History venlafaxine 225 mg PO QAM 09/15/19 03/21/20 History gabapentin 300 mg PO BID #0 tab 09/20/19 03/21/20 Rx Basaglar KwikPen U-100 Insulin 15 unit SUBCUT QAM 12/22/19 03/21/20 History Trulicity 1.5 mg SUBCUT FR 12/22/19 03/21/20 History oxybutynin chloride [Ditropan XL] 10 mg PO HS 12/22/19 03/21/20 History morphine 15 mg PO Q12H 01/16/20 03/21/20 History aspirin [Aspir-81] 81 mg PO DAILY 03/21/20 03/21/20 History metformin 1,000 mg PO BID 03/21/20 03/21/20 History metoprolol succinate 50 mg PO BID 03/21/20 03/21/20 History rifaximin [Xifaxan] 550 mg PO BID 03/21/20 03/21/20 History trazodone 100 mg PO HS 03/21/20 03/21/20 History Patient History Medical History Anxiety Bipolar disorder CAD (coronary artery disease) History of multiple PCI's to the RCA with subsequent CABG x1 in 2011 x 1 vessel Most recent cardiac testing-negative DSE in December 2017 Follows w/ Dr. Blackwell and Dr. Lucas Okaydwe-Qampg-Mngov disease follows w/ Dr. Lemus Chronic diastolic CHF (congestive heart failure) Chronic pain syndrome Depression DM type 2 (diabetes mellitus, type 2) IDDM Dyslipidemia Encephalopathy d/c from [facility] 09/20/19 (hepatic encephalopathy) Gastroparesis GERD (gastroesophageal reflux disease) Hypertension Hypothyroidism Irregular heart beat follows Dr. 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 Moderate aortic stenosis G[place]ALE[place] (nonalcoholic steatohepatitis) Osteoarthritis Portal hypertensive gastropathy Spondylosis Urinary incontinence UTI (urinary tract infection) REASON FOR CIPRO Surgical History History of appendectomy History of back surgery sacral area History of cardiac cath multiple - most recent - 2 years ago @ [place] - FOR CP History of cataract surgery RT History of colonoscopy History of esophagogastroduodenoscopy (EGD) History of heart artery stent 2 yrs ago @ [facility] > unsure of how many stents > follows Dr. Lucas History of total right knee replacement Hx of cholecystectomy S/P CABG x 1 2010 - single vessel S/P CARLOS (total abdominal hysterectomy) Family History Father Coronary heart disease Brother Coronary heart disease Father Diabetes Mother Diabetes Social History Smoking Status: Never smoker Second Hand Exposure: Yes (DAUGHTER SMOKES); Hx Alcohol Use: No Hx Substance Use: No Preferred Language: Romansh Communication Ability: Effective Cw Operator Required: No Beliefs That Will Affect Care: None marital status: / Current Living Situation: Alone Other Information That Helps Us Care for You: No Feels Safe at Home: Yes Safety Concerns: Feels Safe At This Time Review of Systems Review of Systems: All systems reviewed & are unremarkable except as noted in HPI & below Physical Exam Constitutional: well developed; no acute distress and not ill appearing Respiratory: normal respiratory effort, lungs clear to auscultation Auscultation: no crackles, no rales, no rhonchi and no wheezes Cardiovascular: Rate/Rhythm: regular rate and regular rhythm Heart Sounds: normal S1, normal S2 and + murmur (2/6 medium pitched systolic ejection murmur heard best at the right second costal space); no cardiac rub Vessels: radial pulses present; no JVD and no carotid bruit Gastrointestinal (Abdomen): Inspection/Auscultation: abdomen normal to inspection and normal bowel sounds; abdomen not distended Percussion/Palpation: abdomen soft; abdomen nontender, no guarding and abdomen not rigid Skin: no rashes, warm and dry Neurologic: moves all extremities; no focal motor deficits Speech / Cognition: normal speech Motor/Sensory: no tremor Psychiatric: Orientation: alert and oriented x 3 Affect: euthymic affect Results & Data ([facility]) Vital Signs (Past 12 Hours) Vital Signs Temp Pulse Pulse Resp BP BP Pulse Ox 03/22/20 06:56 36.6 C 57 L 18 118/70 96 03/22/20 04:12 36.5 C 61 18 102/60 97 03/22/20 01:41 65 03/21/20 23:34 36.6 C 68 18 114/68 95 (1) Chest pain Chest pain type: unspecified Qualified Code(s): R07.9 - Chest pain, unspecified
[2020-03-22] MEDS: INSULIN ASPART 100 UNITS/ML 3 ML PEN SC SCH ×4 (08:46→21:38)
[2020-03-22] MEDS: POLYETHYLENE (MIRALAX) 17 GM PACK PO SCH (10:59)
[2020-03-22] MEDS: clonazePAM 0.5 MG TAB PO PRN ×2 (11:02→20:48)
[2020-03-22] MEDS ORDERED: METOPROLOL TARTRATE 1 MG/ML VIAL IV ONE (12:09)
[2020-03-22] MEDS ORDERED: ATROPINE SULFATE 0.1 MG/ML 10ML SYR IV ONE (12:09)
[2020-03-22] MEDS ORDERED: DOBUTamine HCL 12.5 MG/ML 20 ML VIAL IV ONE (12:10)
[2020-03-22] MEDS: LACTULOSE SYRUP 20 GM/30 ML UDC PO SCH ×2 (14:22→20:27)
[2020-03-22] MEDS ORDERED: MONTELUKAST SODIUM 10 MG TABLET PO SCH (16:00)
[2020-03-22] MEDS: FAMOTIDINE 40 MG TABLET PO SCH (17:36)
--- NOTE | 2020-03-22 19:54 | Hospitalist Progress Note ---
Date of Service March 22, 2020 Assessment & Plan (1) Chest pain: MN ruled out. No stress-induced ischemia per dobutamine stress echo. Pulmonary embolism very unlikely with normal D-dimer. (2) CAD (coronary artery disease): Known ischemic heart disease, s/p CABG and PCI. No evidence of acute MN as noted above. Continue aspirin and metoprolol. Not on statin, probably because of underlying liver disease. (3) Hypertension: Continue metoprolol. (4) Chronic diastolic CHF (congestive heart failure): Compensated. Continue diuretic. (5) GONZALEZ (nonalcoholic steatohepatitis): Compensated. Continue rifaximin and lactulose. (6) DM type 2 (diabetes mellitus, type 2): Hgb A1c = 6.2. Hold metformin during hospital stay. Lantus / NovoLog per protocol. FBS today = 133. (7) Hypothyroidism: Continue levothyroxine. (8) DVT prophylaxis: SCD's ordered. (9) Discharge planning issues: Patient does not feel well this afternoon and not ready for discharge. Anticipated discharge to home. Family Medicine follow-up with Dr. Domínguez. Admission and Anticipated Discharge Date Admission Date: March 21, 2020 Subjective Recheck for chest pain. Patient seen in their room around 1330. Admitted yesterday with chest pain. Acute MN ruled out. Dobutamine stress test performed today. No evidence of stress-induced ischemia. Feels very weak after the study. Review of Systems: Constitutional- no fever. Cardiac- no further chest pain. Pulmonary- no cough or SOB. GI- no nausea, vomiting, diarrhea - no urinary symptoms. Otherwise, as noted above. Physical Exam Constitutional: no acute distress Respiratory: no respiratory distress Auscultation: lungs clear to auscultation bilaterally Cardiovascular: Rate/Rhythm: regular rate and regular rhythm Heart Sounds: + murmur (II/ sys murmur at base); no gallop and no cardiac rub Vessels: no JVD Extremities: no calf tenderness and no edema Gastrointestinal (Abdomen): normal bowel sounds, soft, nontender, no hepatosplenomegaly Musculoskeletal: Extremities: no cyanosis Skin: no rashes, warm and dry Psychiatric: Orientation: alert and oriented x 3 Results & Data Results & Data ([facility]) Vital Signs (Past 12 Hours) Vital Signs Temp Pulse Pulse Resp BP BP Pulse Ox 03/22/20 19:01 36.8 C 84 18 114/60 92 03/22/20 16:40 84 03/22/20 15:39 36.7 C 84 20 141/85 H 92 03/22/20 12:31 61 03/22/20 11:39 36.9 C 63 20 114/65 90 Laboratory Results Laboratory Results - last 24 hr 03/21/20 03/22/20 03/22/20 20:09 00:09 05:59 WBC RBC Hgb Hct MCV MCH MCHC RDW Std Deviation RDW Coeff of Guillermo Plt Count MPV Sodium Potassium Chloride Carbon Dioxide Anion Gap BUN Creatinine Est Cr Clr Drug Dosing Est GFR ( Amer) Est GFR (Non-Af Amer) BUN/Creatinine Ratio Glucose POC Glucose 108 H 133 H Estimat Average Glucose Hemoglobin A1c Calcium Total Bilirubin AST ALT Alkaline Phosphatase Troponin I < 0.015 Total Protein Albumin Globulin Albumin/Globulin Ratio 03/22/20 03/22/20 03/22/20 06:25 06:25 06:25 WBC 4.88 RBC 4.57 Hgb 11.4 L Hct 35.6 L MCV 77.9 L MCH 24.9 L MCHC 32.0 RDW Std Deviation 47.4 H RDW Coeff of Guillermo 16.7 H Plt Count 125 L MPV 9.6 Sodium 136 Potassium 3.9 Chloride 98 Carbon Dioxide 29 Anion Gap 8.0 BUN 11 Creatinine 0.97 Est Cr Clr Drug Dosing 65.4 Est GFR ( Amer) 68.6 Est GFR (Non-Af Amer) 59.2 BUN/Creatinine Ratio 11.2 Glucose 121 H POC Glucose Estimat Average Glucose 131 Hemoglobin A1c 6.2 H Calcium 8.7 Total Bilirubin 0.4 AST 14 L ALT 12 Alkaline Phosphatase 90 Troponin I Total Protein 6.6 Albumin 3.3 L Globulin 3.3 Albumin/Globulin Ratio 1.0 03/22/20 03/22/20 03/22/20 11:23 14:06 16:32 WBC RBC Hgb Hct MCV MCH MCHC RDW Std Deviation RDW Coeff of Guillermo Plt Count MPV Sodium Potassium Chloride Carbon Dioxide Anion Gap BUN Creatinine Est Cr Clr Drug Dosing Est GFR ( Amer) Est GFR (Non-Af Amer) BUN/Creatinine Ratio Glucose POC Glucose 123 H 132 H 144 H Estimat Average Glucose Hemoglobin A1c Calcium Total Bilirubin AST ALT Alkaline Phosphatase Troponin I Total Protein Albumin Globulin Albumin/Globulin Ratio (1) Chest pain Chest pain type: unspecified Qualified Code(s): R07.9 - Chest pain, unspecified
[2020-03-22] MEDS: ARIPIprazole 1 MG/ML ORAL SOLN 150 ML BTL PO SCH (20:27)
[2020-03-22] MEDS: OXYBUTYNIN CHLORIDE XL 5 MG TABCR PO SCH (20:28)
[2020-03-22] MEDS: TRAZODONE HCL 100 MG TAB PO SCH (20:37)
[2020-03-23] MEDS: ACETAMINOPHEN 325 MG TAB PO PRN ×2 (00:15→12:20)
[2020-03-23] MEDS: LEVOTHYROXINE SODIUM 88 MCG TABLET PO SCH (06:08)
[2020-03-23] MEDS: INSULIN GLARGINE SOLOSTAR 100 UNITS/ML 3 ML PEN SC SCH (06:09)
[2020-03-23] MEDS: MoRPHine SULFATE CR 15 MG TABCR PO SCH (08:00)
[2020-03-23] MEDS: LACTULOSE SYRUP 20 GM/30 ML UDC PO SCH (08:01)
[2020-03-23] MEDS: NYSTATIN POWDER 15GM BTL EXT PRN (08:01)
[2020-03-23] MEDS: ASPIRIN 81 MG ECTAB PO SCH (08:02)
[2020-03-23] MEDS: GABAPENTIN 300 MG CAP PO SCH (08:02)
[2020-03-23] MEDS: VENLAFAXINE HCL XR 75 MG CAPXR PO SCH (08:03)
[2020-03-23] MEDS: TORSEMIDE 20 MG TAB PO SCH (08:03)
[2020-03-23] MEDS: METOPROLOL SUCC 50MG EXT REL TAB PO SCH (08:03)
[2020-03-23] MEDS: RIFAXIMIN 550 MG TABLET PO SCH (08:03)
[2020-03-23] MEDS: lamoTRIgine 25 MG TAB PO SCH (08:03)
[2020-03-23] MEDS: SPIRONOLACTONE 25 MG TAB PO SCH (08:04)
[2020-03-23] MEDS: PANTOprazole 40 MG TAB PO SCH (08:04)
[2020-03-23] MEDS: lamoTRIgine 100 MG TAB PO SCH (08:04)
[2020-03-23] MEDS: clonazePAM 0.5 MG TAB PO PRN (08:06)
[2020-03-23] MEDS: INSULIN ASPART 100 UNITS/ML 3 ML PEN SC SCH ×2 (08:10→12:21)
--- NOTE | 2020-03-23 09:30 | CT Scan Report ---
CT head/brain wo con CLINICAL HISTORY: Acute change in mental status COMPARISON STUDY: 09/15/2019 TECHNIQUE: Axial CT of the brain is performed from the vertex to the skull base. IV contrast was not administered for this examination. A dose lowering technique was utilized adhering to the principles of ALARA. CT DOSE: 1124.09 mGycm FINDINGS: No intra or extra-axial mass lesions are visualized. There is no CT evidence of acute cortical infarc tion. There is no evidence of midline shift. There is no acute hemorrhage. No calvarial fractures ar e visualized. There are patchy white matter hypodensities likely on a small vessel basis. There is no evidence of pathologic ventricular dilatation. There is no evidence of acute sinusitis IMPRESSION: No acute intracranial findings ACT 112: Negative or not required by law. Electronically signed by: Devang Wood M.D. 03/23/2020 9:29 AM
[2020-03-23] MEDS: POLYETHYLENE (MIRALAX) 17 GM PACK PO SCH (11:01)
[2020-03-23 11:44] LABS: Appearance Urine Clear (Clear); Bacteria Urine Automated Negative (Negative); Bilirubin Urine Negative (Negative); Blood Urine Negative (Negative); Cast Urine Automated 0 /lpf (0-5); Color Urine Yellow; Glucose Urine UA Negative (Negative); Ketones Urine Negative (Negative); Leukocyte Esterase Urine Trace (Negative); Nitrite Urine Negative (Negative); Protein Urine Negative (Negative); RBC Urine Automated 0-4 /hpf (0-4); Specific Gravity Urine 1.008 (1.000-1.030); Urobilinogen Urine Negative (Negative); WBC Urine Automated 0 /hpf (0-5)
--- NOTE | 2020-03-23 14:51 | Hospitalist Progress Note ---
Date of Service March 23, 2020 Assessment & Plan (1) Chest pain: ME ruled out. No stress-induced ischemia per dobutamine stress echo. Pulmonary embolism very unlikely with normal D-dimer. (2) CAD (coronary artery disease): Known ischemic heart disease, s/p CABG and PCI. No evidence of acute ME as noted above. Continue aspirin and metoprolol. Not on statin, probably because of underlying liver disease. (3) Hypertension: Continue metoprolol. (4) Chronic diastolic CHF (congestive heart failure): Compensated. Continue diuretic. (5) GONZALEZ (nonalcoholic steatohepatitis): Compensated. Continue rifaximin and lactulose. (6) DM type 2 (diabetes mellitus, type 2): Hgb A1c = 6.2. Hold metformin during hospital stay. Lantus / NovoLog per protocol. FBS today = 145. Discharge on usual regimen. (7) Hypothyroidism: Continue levothyroxine. (8) Altered mental status: Confused during the night. CT negative for any acute event. UA negative. History of hepatic encephalopathy. Serum ammonia last night 17. Back to baseline cognitive status. Probable encephalopathy / delirium secondary to hospital stay. Has had similar occurrences in the past. (9) DVT prophylaxis: SCD's ordered. (10) Discharge planning issues: Discharge to home. Family Medicine follow-up with Dr. Domínguez. Daughter given update at bedside. Admission and Anticipated Discharge Date Admission Date: March 21, 2020 Subjective Recheck for chest pain. Patient seen in their room around 1000. Confused last night. Back to baseline cognitive status this morning. No CP or SOB. Would like to go home today. Physical Exam Constitutional: no acute distress Respiratory: no respiratory distress Auscultation: lungs clear to auscultation bilaterally Cardiovascular: Rate/Rhythm: regular rate and regular rhythm Heart Sounds: + murmur (II/ sys murmur at base); no gallop and no cardiac rub Vessels: no JVD Extremities: no calf tenderness and no edema Gastrointestinal (Abdomen): normal bowel sounds, soft, nontender, no hepatosplenomegaly Musculoskeletal: Extremities: no cyanosis Skin: no rashes, warm and dry Psychiatric: Orientation: alert and oriented x 3 (alert to person, place, day of week, and year) Results & Data Results & Data ([facility]) Vital Signs (Past 12 Hours) Vital Signs Temp Pulse Pulse Pulse Resp BP BP 09/17/20 14:34 36.7 C 69 61 18 114/65 117/68 03/23/20 11:17 36.7 C 61 18 117/68 03/23/20 07:26 62 03/23/20 07:17 36.5 C 60 18 109/56 L 03/23/20 04:03 60 03/23/20 03:35 36.6 C 50 L 19 121/74 Pulse Ox 03/23/20 14:34 95 03/23/20 11:17 95 03/23/20 07:26 03/23/20 07:17 94 03/23/20 04:03 03/23/20 03:35 95 (1) Chest pain Chest pain type: unspecified Qualified Code(s): R07.9 - Chest pain, unspecified
--- NOTE | 2020-03-24 07:59 | Discharge Summary ---
Date of Service Date of Admission: 03/21/20 Date of Discharge: 03/23/20 Admission HPI Per Admitting Provider This is a 69-year-old female who has significant past medical history of CAD with history of CABG x1 and multiple stents, T2DM, HTN, HLD, cirrhosis secondary to [place], diabetic gastroparesis, Charcot Rashmi tooth, neuropathy, chronic diastolic CHF, moderate left ear, GERD, portal hypertension gastropathy, thrombocytopenia, bipolar, anxiety, chronic pain syndrome secondary to back pain who presents to [facility] ED secondary to chest pain since 9 PM last evening. Daughter is at bedside. She states when she went to get out of the car and walk into her house she developed left-sided precordial chest discomfort described as, "2 blocks sitting on her chest," associated with shortness of breath and nausea. Symptoms worsen as she persists to walk. When she got into her house she sat down which did improve her shortness of breath but chest heaviness was still present. Pain was then radiating to her left shoulder and jaw. She did take nitro x3 with improvement of symptoms but not complete relief. She states pain waxed and waned throughout the night. Symptoms made worse with deep breathing, nothing improves symptoms. She states she was seen and evaluated by cardiology who recommended nuclear stress test. She unfortunately canceled this 1 week ago due to not feeling well. Through the month of February she had been experiencing chest discomfort with exertion. Per Dr. Rutherford symptoms were concerning for unstable angina. She states symptoms she experienced last evening or much worse. She continues to feel a slight pressure across the chest described as, "half a brick." She did receive 2 sublingual nitro while in ED. She denies any diaphoresis or palpitations associate with event. She does complain of dizziness, "like the room is spinning," that was associated with last night symptoms. She states the dizziness has been off and on for several months. Dizziness can last for 2 to 3 hours and then resolves on own. She denies any recent fever, chills, sweats, lightheadedness, syncope, cough, emesis, abdominal pain, dysuria, increased urgency or frequency of urination, melena, hematochezia. Her appetite is overall diminished. She denies any lower extremity swelling or weight gain. She does live alone but has close family contact with her daughter who is at bedside. Principal Diagnosis chest pain, acute PR ruled out Discharge Data Allergies Allergy/AdvReac Type Severity Reaction Status Date / Time propoxyphene Allergy Mild Rash Verified 03/21/20 15:06 fentanyl AdvReac Intermediate PANIC Verified 03/21/20 15:06 WANTS TO RUN AND AGGRESSIVE zolpidem AdvReac Intermediate confusion Verified 03/21/20 15:06 methocarbamol AdvReac Mild DELERIUM Verified 03/21/20 15:06 Consultations 03/21/20 14:42 ED Decision to Admit Stat 03/21/20 14:59 Consult Cardiology Routine Ordered Studies 03/23/20 05:47 CT head/brain wo con Urgent Hospital Course (1) Chest pain: 69 YO female with known ischemic heart disease, s/p CABG and PCI. Presented to ED with atypical chest pain. Cardiology consulted. PR ruled out. No stress-induced ischemia per dobutamine stress echo. Pulmonary embolism very unlikely with normal D-dimer. (2) CAD (coronary artery disease): No evidence of acute PR as noted above. Continue aspirin and metoprolol. Not on statin, probably because of underlying liver disease. (3) Hypertension: Continue metoprolol. (4) Chronic diastolic CHF (congestive heart failure): Compensated. Continue diuretic. (5) ESPANA (nonalcoholic steatohepatitis): Compensated. Continue rifaximin and lactulose. (6) DM type 2 (diabetes mellitus, type 2): Hgb A1c = 6.2. Hold metformin during hospital stay. Lantus / NovoLog per protocol. FBS day of admisison 145. Discharge on usual regimen. (7) Hypothyroidism: Continue levothyroxine. (8) Altered mental status: Confused night of 03/22. CT negative for any acute event. UA negative. History of hepatic encephalopathy; serum ammonia 17. Back to baseline cognitive status by the next morning. Probable encephalopathy / delirium secondary to hospital stay. Has had similar occurrences in the past. (9) DVT prophylaxis: SCD's ordered. (10) Discharge planning issues: Discharged to home. Family Medicine follow-up with Dr. Domínguez. Total Time Total Time Spent Total Time Spent (In Minutes): 30 Discharge Plan Discharge Items Patient Disposition: Home - Self-Care Reason For Visit: chest pain Discharge Diagnosis: chest pain- no sign of heart attack Activity: Resume your previous activity Non-emergency contact: Primary Care Provider and Hospitalist Call non-emergency contact if: you have any medication questions Follow-up/Referrals: Brian Domínguez MD [Primary Care Provider] - 03/29/20 11:20 am (Date & Time 03/29/2020 11:20 AM Brian Domínguez MD [facility] ) Diet: Carb Consistent or DM2 and Heart Healthy Addtl Attending Provider Instructions: MEDICATION CHANGES: No medication changes. SUMMARY OF TEST RESULTS: No sign of heart attack. Stress echo test looked good- no sign of severe blockage in coronary arteries. Urine did not show any signs of infection. CT scan did not show any strokes. OTHER INSTRUCTIONS: Seek medical attention if you have: * temperature above 101 * chest pain or trouble breathing * abdominal pain, nausea, vomiting * diarrhea, dark stools or bloody stools * any unanswered questions or concerns Call 911 if symptoms are severe. Please take good care of yourself. Call if you have any questions or problems. You can reach a [facility] hospitalist on duty at [facility] 24 hours a day by calling [phone]. Pending Studies at Discharge: No Stand-Alone Forms: My [facility] [employer], Smoking Cessation Medications and DC Order Prescriptions: Continued ondansetron HCl 8 mg tablet 8 mg PO Q8H PRN (Reason: Nausea) RF: 0 famotidine 40 mg tablet 40 mg PO HS RF: 0 clonazepam 0.5 mg tablet 0.5 mg PO BID PRN (Reason: Anxiety) RF: 0 lamotrigine 25 mg tablet 25 mg PO UD RF: 0 levothyroxine 88 mcg tablet 88 mcg PO QAM RF: 0 omeprazole 20 mg capsule,delayed release(DR/EC) 20 mg PO BID RF: 0 lamotrigine 100 mg tablet 100 mg PO QAM RF: 0 aripiprazole 2 mg tablet 2 mg PO HS RF: 0 benzonatate 100 mg Capsule 100 mg PO TID PRN (Reason: Cough) RF: 0 nitroglycerin [Nitrostat] 0.4 mg Tablet, Sublingual 0.4 mg Sublingual DIRECTED PRN (Reason: Chest Pain) RF: 0 ergocalciferol (vitamin D2) 50,000 unit Capsule 50,000 units PO TH RF: 0 albuterol sulfate [Ventolin HFA] 90 mcg/actuation Hfa Aerosol Inhaler 2 puff INHALATION QID PRN (Reason: Shortness Of Breath Or Wheezing) RF: 0 lactulose 10 gram/15 mL (15 mL) Solution 30 ml PO BID Qty: 0 RF: 0 morphine 15 mg Tablet Extended Release 15 mg PO Q12H RF: 0 torsemide 20 mg tablet 20 mg PO QAM RF: 0 montelukast 10 mg Tablet 10 mg PO DAILY@1600 RF: 0 Basaglar KwikPen U-100 Insulin 100 unit/mL (3 mL) Insulin Pen 15 unit SUBCUT QAM RF: 0 Trulicity 1.5 mg/0.5 mL Pen Injector 1.5 mg SUBCUT FR RF: 0 oxybutynin chloride [Ditropan XL] 10 mg Tablet Extended Release 24hr 10 mg PO HS RF: 0 polyethylene glycol 3350 [Miralax] 17 gram/dose Powder 17 g PO QDL RF: 0 spironolactone 50 mg tablet 50 mg PO BID RF: 0 venlafaxine 75 mg capsule,extended release 24hr 225 mg PO QAM RF: 0 gabapentin 600 mg tablet 300 mg PO BID Qty: 0 RF: 0 trazodone 50 mg Tablet 100 mg PO HS RF: 0 metoprolol succinate 50 mg Tablet Extended Release 24 Hr 50 mg PO BID RF: 0 metformin 500 mg tablet 1,000 mg PO BID RF: 0 Xifaxan 550 mg Tablet 550 mg PO BID RF: 0 aspirin [Aspir-81] 81 mg Tablet,Delayed Release (Dr/Ec) 81 mg PO DAILY RF: 0 Discharge Orders: Discharge Order (Routine); Ordered 03/23/20 Ordered By: Jesus Doshi/Other Patient Handouts: Managing Type 2 Diabetes Admission Data Admit Date/Time: 03/21/20 14:59 Attending Provider: Jesus Mccormack Admit Provider: Markos Marroquin Primary Care Provider: Brian Domínguez Other Providers: Markos Marroquin ; Gonzalo Prieto Other Interventions: Discharge Summary Assessment (RN) Last Done: 03/23/20 14:34
== END 2020-03-23 16:10 | disposition home or self-care (01) ==
LOC: ED 12:25 → 2W 12:25 → SUATTDRO 14:59 → 2W 16:59

== ENCOUNTER 2021-01-07 11:50 | Inpatient (IN) ==
[2021-01-07 12:23] LABS: Basophils # (auto) 0.01 K/uL (0-0.2); Basophils % (auto) 0.2 %; Eosinophils # (auto) 0.25 K/uL (0-0.5); Hematocrit (blood only) 33.9 % (37-47); Hemoglobin 10.9 g/dL (12.0-16.0); Immature Granulocytes # (auto) 0.02 K/uL (0.00-0.02); Immature Granulocytes % (auto) 0.3 %; Lymphocytes # (auto) 1.32 K/uL (1.2-3.4); Lymphocytes % (auto) 21.1 %; Mean Corpuscular Hemoglobin 23.9 pg (25-34); Mean Corpuscular Hgb Conc 32.2 g/dL (32-36); Mean Corpuscular Volume 74.2 fL (80-100); Monocytes # (auto) 0.47 K/uL (0.11-0.59); Monocytes % (auto) 7.5 %; Neutrophils # (auto) 4.18 K/uL (1.4-6.5); Neutrophils % (auto) 66.9 %; Platelet Count 143 K/uL (130-400); RDW Coefficient of Variation 16.5 % (11.5-14.5); RDW Standard Deviation 44.7 fL (36.4-46.3); Red Blood Count 4.57 M/uL (4.2-5.4); White Blood Count 6.25 K/uL (4.8-10.8)
--- NOTE | 2021-01-07 12:24 | Emergency Department Note ---
Impression & Plan Fall, CHI (closed head injury), Weakness ED Provider Note INFORMANT: Patient ED PROVIDER(S): Jesus Rosales MD CHIEF COMPLAINT: Weakness PLAN: Disposition: Admitted Condition: Good Outpatient prescription management: none Referral: None MEDICAL DECISION MAKING: Patient presented to emergency room complaining of weakness and also some urinary symptoms. She did some wheezing at home but had no wheezing on examination for me or for nursing's initial assessment. Her chest x-ray does not show any acute findings. Head and neck CT negative. The patient's ECG did not show any significant acute findings other. Nonspecific changes. She had an unremarkable CBC and chemistry panel. Her urinalysis was somewhat concerning for infection. I did review her prior culture results and the patient has had VRE and ESBL Klebsiella. I discussed this with the pharmacy. The plan was to g cameron the patient a dose of IV daptomycin and cover her with Macrobid pending culture results. The patient's daughter and caregiver presented to the ER. I reviewed the findings and plan. They seemed comfortable with this then noted that the patient was exhibiting some confusion and hallucinations. On reassessment shortly after going over the discharge plan the patient was complaining of seeing things in the room that were not there and had confusion with not being able to remember issues regarding her daughter and residents. Patient was nonfocal. Caregiver was concerned with her going home. Consultation was made with the [facility] hospitalist, Dr. Marroquin. Patient was evaluated in the ER for further management. Triage Nursing notes reviewed and agree them. Vital Signs: reviewed and remarkable for no significant abnormalities Differential diagnosis: Concussion, fracture, infection, dehydration, metabolic abnormality, hypo/hyperg lycemia, electrolyte disturbance, anemia, hypoxia, cardiac sources, intracerebral event, toxicologic, neurologic, as well as other pathologies. Diagnostics interpreted by me: ECG: Twelve-lead ECG revealed normal sinus rhythm at 67 bpm. Left axis d eviation. Nonspecific ST. No ST elevation or depression. Cardiac Monitoring: Cardiac monitoring ordered by me: The patient was placed on continuous cardiac monitoring and observed. It revealed a normal sinus rhythm at 65 beats per minute without ectopy or evidence of dysrhythmia. Imaging studies: Head CT: A noncontrast CT scan of the head was performed and was negative for tumor, fracture, intracranial hemorrhage, or other acute pathology. C-spine CT was negative for acute process. Chest x-ray. Findings: A chest x-ray was performed and revealed no pneumothorax, effusion, infiltrate, pulmonary edema, free air under the diaphragm, or wide mediastinum. Mild interstitial thickening noted which is unchanged per radiology. Impression: No acute disease. HPI: The patient is a 70 year old female who presents to the Emergency Room with complaints of weakness and falls. This started over the last week and culminated this morning with her striking her head. She denies any other injuries from the other fall. States she has difficulty ambulating due to a Charcot foot. The patient also notes the following associated symptoms, dysuria and urinary frequency. The patient has found no relieving factors. Current pain is rated as 6/10. Patient also notes a mild neck pain. Pt denies LOC, fevers, chills, diaphoresis, visual changes, chest pain, breathing difficulties, nausea, vomiting, abdominal pain, back pain, melena, hematochezia, urinary symptoms, numbness, lymphadenopathy, rash, or other complaints. ROS: See above HPI for pertinent positives & negatives. A total of 10 systems reviewed and were otherwise negative. PAST MEDICAL HISTORY:See Below , UTI, pneumonia PAST SURGICAL HISTORY:See Below, CABG FAMILY HISTORY:See Below SOCIAL HISTORY:See Below, retired HOME MEDICATIONS:See Below ALLERGIES:See Below VITALS:See Below PHYSICAL EXAMINATION: GENERAL: Awake, alert, mildly uncomfortable appearing, in no distress HENT: Normocephalic, atraumatic. Oropharynx unremarkable. EYES: Normal conjunctiva. Sclera non-icteric. NECK: Inspection normal. Non-tender. Supple. No nuchal rigidity. FROM. No masses. Minor lateral tenderness to palpation no step-offs. RESPIRATORY: Clear to auscultation. No wheezes. No rales. Normal respiratory effort. CARDIAC: Normal rate. Normal rhythm. No murmurs. No rubs. Extremities warm and well perfused. Pulses equal. No JVD. GI: Soft, non-distended. No tenderness to palpation. No rebound or guarding. No masses. RECTAL: Deferred. MUSCULOSKELETAL: Atraumatic. Chest examination reveals no tenderness. The back is symmetrical on inspection without obvious abnormality. There is no CVA tenderness to palpation. No joint edema. LOWER EXTREMITIES: Calves are equal size bilaterally and non-tender. 1+ edema. No discoloration. NEURO: Normal sensorium. No sensory or motor deficits noted. SKIN: No rash or jaundice noted. Jesus Rosales MD Past Med/Surg History Medical History (Updated 01/07/21 @ 12:27 by Jesus Rosales MD) Anxiety Bipolar disorder CAD (coronary artery disease) History of multiple PCI's to the RCA with subsequent CABG x1 in 2010 x 1 vessel Most recent cardiac testing-negative DSE in December 2017 Follows w/ Dr. Blackwell and Dr. Lucas Wjhxhnq-[id number]-Rqvad disease follows w/ Dr. Lemus Chronic diastolic CHF (congestive heart failure) Chronic pain syndrome Depression DM type 2 (diabetes mellitus, type 2) IDDM Dyslipidemia Encephalopathy d/c from [facility] 09/20/19 (hepatic encephalopathy) Gastroparesis GERD (gastroesophageal reflux disease) Hypertension Hypothyroidism Irregular heart beat follows Dr. 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 Lucas History of total right knee replacement Hx of cholecystectomy S/P CABG x 1 2010 - single vessel S/P CARLOS (total abdominal hysterectomy) Family History Father Coronary heart disease Brother Coronary heart disease Father Diabetes Mother Diabetes Social History Smoking Status: Never smoker Second Hand Exposure: Yes (DAUGHTER SMOKES); Hx Alcohol Use: No Hx Substance Use: No Preferred Language: Kenyan Communication Ability: Effective Radiology Asst Required: No Beliefs That Will Affect Care: None marital status: / Current Living Situation: Alone Feels Safe at Home: Yes Assistive Devices: Glasses and Walker Allergies Allergies Allergy/AdvReac Type Severity Reaction Status Date / Time propoxyphene Allergy Mild Rash Verified 01/07/21 15:49 fentanyl AdvReac Intermediate PANIC Verified 01/07/21 15:49 WANTS TO RUN AND AGGRESSIVE zolpidem AdvReac Intermediate confusion Verified 01/07/21 15:49 methocarbamol AdvReac Mild DELERIUM Verified 01/07/21 15:49 Home Meds Home Medications Medication Instructions Recorded Confirmed albuterol sulfate [Ventolin HFA] 2 puff INHALATION QID PRN 04/27/18 01/07/21 aripiprazole 2 mg PO HS 04/27/18 01/07/21 clonazepam 0.5 mg PO BID PRN 04/27/18 01/07/21 ergocalciferol (vitamin D2) 50,000 units PO TH 04/27/18 01/07/21 famotidine 40 mg PO HS 04/27/18 01/07/21 lamotrigine 25 mg PO UD 04/27/18 01/07/21 lamotrigine 100 mg PO QAM 04/27/18 01/07/21 levothyroxine 88 mcg PO QAM 04/27/18 01/07/21 nitroglycerin [Nitrostat] 0.4 mg SUBLINGUAL DIRECTED PRN 04/27/18 01/07/21 omeprazole 20 mg PO BID 04/27/18 01/07/21 ondansetron HCl 8 mg PO Q8H PRN 04/27/18 01/07/21 torsemide 20 mg PO QAM 09/03/18 01/07/21 montelukast 10 mg PO DAILY@1600 06/11/19 01/07/21 spironolactone [Aldactone] 50 mg PO BID 09/15/19 01/07/21 venlafaxine 75 mg PO QAM 09/15/19 01/07/21 Basaglar KwikPen U-100 Insulin 15 unit SUBCUT QAM 12/22/19 01/07/21 Trulicity 1.5 mg SUBCUT FR 12/22/19 01/07/21 oxybutynin chloride [Ditropan XL] 10 mg PO HS 12/22/19 01/07/21 morphine 15 mg PO Q12H 01/16/20 01/07/21 Xifaxan 550 mg PO BID 03/21/20 01/07/21 aspirin [Aspir-81] 81 mg PO QAM 03/21/20 01/07/21 metformin 1,000 mg PO BID 03/21/20 01/07/21 metoprolol succinate 50 mg PO BID 03/21/20 01/07/21 trazodone 150 mg PO HS 03/21/20 01/07/21 dicyclomine 10 mg PO QID PRN 01/07/21 01/07/21 gabapentin 600 mg PO BID 01/07/21 01/07/21 isosorbide mononitrate 30 mg PO QAM 01/07/21 01/07/21 venlafaxine 150 mg PO QAM 01/07/21 01/07/21 Previous Rx's Medication Instructions Recorded nitrofurantoin monohyd/m-cryst 100 mg PO Q12H 7 Days #14 cap 01/07/21 [Macrobid] Results & Data (ED) Vital Signs Vital Signs - 24 hr 01/07/21 12:00 01/07/21 12:01 01/07/21 12:21 Temperature 37.1 C Temperature Source Oral Pulse Rate 67 68 65 Pulse Rate from SpO2 Sensor 68 Pulse Rhythm Regular Regular Pulse Strength Normal Respiratory Rate 15 20 20 Respiratory Effort / Characteristics Non-Labored Spontaneous Respiratory Depth Normal Respiratory Pattern Regular Blood Pressure 146/86 H 146/86 H Blood Pressure Mean 106 106 Blood Pressure Position Sitting Pulse Oximetry 94 94 93 Oxygen Delivery Method Room Air Room Air Sepsis Recent Fever Within 48 Hours No Sepsis New/Unexplained Change in Mental Status No Sepsis Action Taken by Nursing No Action Required 01/07/21 12:30 01/07/21 13:01 01/07/21 13:30 Temperature Temperature Source Pulse Rate 66 66 66 Pulse Rate from SpO2 Sensor 65 66 66 Pulse Rhythm Pulse Strength Respiratory Rate 18 18 13 Respiratory Effort / Characteristics Respiratory Depth Respiratory Pattern Blood Pressure 145/78 H 154/83 H 164/111 H Blood Pressure Mean 100 106 128 Blood Pressure Position Pulse Oximetry 95 96 94 Oxygen Delivery Method Sepsis Recent Fever Within 48 Hours Sepsis New/Unexplained Change in Mental Status Sepsis Action Taken by Nursing 01/07/21 14:01 01/07/21 14:32 01/07/21 15:00 Temperature Temperature Source Pulse Rate 64 66 65 Pulse Rate from SpO2 Sensor Pulse Rhythm Pulse Strength Respiratory Rate 12 19 16 Respiratory Effort / Characteristics Respiratory Depth Respiratory Pattern Blood Pressure 140/42 L 136/72 Blood Pressure Mean 74 93 Blood Pressure Position Pulse Oximetry 95 Oxygen Delivery Method Sepsis Recent Fever Within 48 Hours Sepsis New/Unexplained Change in Mental Status Sepsis Action Taken by Nursing 01/07/21 15:16 01/07/21 15:30 01/07/21 17:26 Temperature Temperature Source Pulse Rate 66 68 66 Pulse Rate from SpO2 Sensor 65 68 66 Pulse Rhythm Pulse Strength Respiratory Rate 15 22 23 Respiratory Effort / Characteristics Respiratory Depth Respiratory Pattern Blood Pressure 118/73 116/88 123/67 Blood Pressure Mean 88 97 85 Blood Pressure Position Pulse Oximetry 95 95 98 Oxygen Delivery Method Sepsis Recent Fever Within 48 Hours Sepsis New/Unexplained Change in Mental Status Sepsis Action Taken by Nursing 01/07/21 17:30 01/07/21 18:01 Temperature Temperature Source Pulse Rate 64 69 Pulse Rate from SpO2 Sensor 64 Pulse Rhythm Pulse Strength Respiratory Rate 16 18 Respiratory Effort / Characteristics Respiratory Depth Respiratory Pattern Blood Pressure 138/71 116/56 L Blood Pressure Mean 93 76 Blood Pressure Position Pulse Oximetry 94 95 Oxygen Delivery Method Room Air Sepsis Recent Fever Within 48 Hours Sepsis New/Unexplained Change in Mental Status Sepsis Action Taken by Nursing Laboratory Data Result diagrams: 01/07/21 11:56 01/07/21 11:56 Lab Results 01/07/21 01/07/21 01/07/21 Range/Units 11:56 11:56 12:15 WBC 6.25 (4.8-10.8) K/uL RBC 4.57 (4.2-5.4) M/uL Hgb 10.9 L (12.0-16.0) g/dL Hct 33.9 L (37-47) % MCV 74.2 L (80-100) fL MCH 23.9 L (25-34) pg MCHC 32.2 (32-36) g/dL RDW Std Deviation 44.7 (36.4-46.3) fL RDW Coeff of Guillermo 16.5 H (11.5-14.5) % Plt Count 143 (130-400) K/uL MPV 10.0 (7.4-10.4) fL Immature Gran % (Auto) 0.3 % Neut % (Auto) 66.9 % Lymph % (Auto) 21.1 % [place] % (Auto) 7.5 % Eos % (Auto) 4.0 % Baso % (Auto) 0.2 % Neut # (Auto) 4.18 (1.4-6.5) K/uL Lymph # (Auto) 1.32 (1.2-3.4) K/uL [place] # (Auto) 0.47 (0.11-0.59) K/uL Eos # (Auto) 0.25 (0-0.5) K/uL Baso # (Auto) 0.01 (0-0.2) K/uL Immature Gran # (Auto) 0.02 (0.00-0.02) K/uL Sodium 133 L (136-145) mmol/L Potassium 4.1 (3.5-5.1) mmol/L Chloride 100 (98-107) mmol/L Carbon Dioxide 27 (21-32) mmol/L Anion Gap 6.0 (3-11) BUN 8 (7-18) mg/dl Creatinine 0.90 (0.6-1.2) mg/dl Est Cr Clr Drug Dosing 73.3 ml/min Est GFR ( Amer) 74.6 ml/min Est GFR (Non-Af Amer) 64.3 ml/min BUN/Creatinine Ratio 9.2 L (10-20) Glucose 184 H (70-99) mg/dl Calcium 9.3 (8.5-10.1) mg/dl Magnesium 1.8 (1.8-2.4) mg/dl Total Bilirubin 0.4 (0.2-1) mg/dl AST 16 (15-37) U/L ALT 15 (12-78) U/L Alkaline Phosphatase 130 H (45-117) U/L Total Protein 6.7 (6.4-8.2) gm/dl Albumin 3.2 L (3.4-5.0) gm/dl Globulin 3.5 (2.5-4.0) gm/dl Albumin/Globulin Ratio 0.9 (0.9-2) TSH 1.270 (0.300-4.500) uIu/ml Urine Color Yellow Urine Appearance Cloudy A (Clear) Urine pH 7.0 (4.5-7.5) Ur Specific [place] 1.007 (1.000-1.030) Urine Protein 1+ H (Negative) Urine Glucose (UA) Negative (Negative) Urine Ketones Negative (Negative) Urine Blood 2+ H (Negative) Urine Nitrite Negative (Negative) Urine Bilirubin Negative (Negative) Urine Urobilinogen Negative (Negative) Ur Leukocyte Esterase 3+ H (Negative) Urine WBC (Auto) >30 H (0-5) /hpf Urine RBC (Auto) 10-30 H (0-4) /hpf U Hyaline Cast (Auto) 0 (0-5) /lpf U Epithel Cells (Auto) 10-20 H (0-5) /lpf Urine Bacteria (Auto) Negative (Negative) Urine Yeast Not Reportable COVID-19 Eval Order SARS-CoV-2 (PCR) (Negative) 01/07/21 01/07/21 Range/Units 15:39 15:39 WBC (4.8-10.8) K/uL RBC (4.2-5.4) M/uL Hgb (12.0-16.0) g/dL Hct (37-47) % MCV (80-100) fL MCH (25-34) pg MCHC (32-36) g/dL RDW Std Deviation (36.4-46.3) fL RDW Coeff of Guillermo (11.5-14.5) % Plt Count (130-400) K/uL MPV (7.4-10.4) fL Immature Gran % (Auto) % Neut % (Auto) % Lymph % (Auto) % [place] % (Auto) % Eos % (Auto) % Baso % (Auto) % Neut # (Auto) (1.4-6.5) K/uL Lymph # (Auto) (1.2-3.4) K/uL [place] # (Auto) (0.11-0.59) K/uL Eos # (Auto) (0-0.5) K/uL Baso # (Auto) (0-0.2) K/uL Immature Gran # (Auto) (0.00-0.02) K/uL Sodium (136-145) mmol/L Potassium (3.5-5.1) mmol/L Chloride (98-107) mmol/L Carbon Dioxide (21-32) mmol/L Anion Gap (3-11) BUN (7-18) mg/dl Creatinine (0.6-1.2) mg/dl Est Cr Clr Drug Dosing ml/min Est GFR ( Amer) ml/min Est GFR (Non-Af Amer) ml/min BUN/Creatinine Ratio (10-20) Glucose (70-99) mg/dl Calcium (8.5-10.1) mg/dl Magnesium (1.8-2.4) mg/dl Total Bilirubin (0.2-1) mg/dl AST (15-37) U/L ALT (12-78) U/L Alkaline Phosphatase (45-117) U/L Total Protein (6.4-8.2) gm/dl Albumin (3.4-5.0) gm/dl Globulin (2.5-4.0) gm/dl Albumin/Globulin Ratio (0.9-2) TSH (0.300-4.500) uIu/ml Urine Color Urine Appearance (Clear) Urine pH (4.5-7.5) Ur Specific [place] (1.000-1.030) Urine Protein (Negative) Urine Glucose (UA) (Negative) Urine Ketones (Negative) Urine Blood (Negative) Urine Nitrite (Negative) Urine Bilirubin (Negative) Urine Urobilinogen (Negative) Ur Leukocyte Esterase (Negative) Urine WBC (Auto) (0-5) /hpf Urine RBC (Auto) (0-4) /hpf U Hyaline Cast (Auto) (0-5) /lpf U Epithel Cells (Auto) (0-5) /lpf Urine Bacteria (Auto) (Negative) Urine Yeast COVID-19 Eval Order Covid19 at [facility] SARS-CoV-2 (PCR) NEGATIVE (Negative) Administered Medications Discontinued Medications Acetaminophen (Acetaminophen 500 Mg Tab) 1,000 mg PO NOW STA Stop: 01/07/21 13:49 Last Admin: 01/07/21 13:59 Dose: 1,000 mg Documented by: [id number] Daptomycin 250 mg/ Syringe 5 mls @ 2.5 mls/min IV NOW ONE; Protocol Stop: 01/07/21 14:34 Last Admin: 01/07/21 14:45 Dose: 2.5 mls/min Documented by: [id number] Nitrofurantoin Macrocrystals (Macrobid 100mg Home Pack 1 Ea Vial) 1 homepack PO UD ONE Stop: 01/07/21 14:34 Last Admin: 01/07/21 15:24 Dose: Not Given Documented by: [id number] Imaging Data Radiologist's Impression: Cervical Spine CT 01/07/21 12:[address] DOSE: HISTORY: fall, neck pain TECHNIQUE: Multiaxial CT images of the cervical spine were performed and reformatted in the sagittal and coronal plane without the use of contrast. A dose lowering technique was utilized adhering to the principles of ALARA. COMPARISON: None. FINDINGS: No fractures within the cervical spine. There is a posterior fusion defect at C6 as well as a left C6 pars defect. Severe disc space narrowing at C4-C5 and C6-C7. Mild anterior wedging at T1 is likely chronic.. No subluxation. Prevertebral soft tissues and the C1-C2 interval are intact. No pneumothorax. IMPRESSION: No acute fractures within the cervical spine. ACT 112: Negative or not required by law. Electronically signed by: Marquez Lindsay M.D. 01/07/2021 12:53 PM Chest X-Ray 01/07/21 12:11 XR chest 1V portable HISTORY: Fall. weakness COMPARISON: Chest 10/11/2020. FINDINGS: No pneumothorax. No pleural effusions. Mild diffuse interstitial thickening, unchanged. This is likely chronic. No new focal lung consolidations to suggest pneumonia. No evidence for pulmonary edema. The heart is top normal in size. There are poststernotomy changes. Mild elevation of the right hemidiaphragm, unchanged. Prior cholecystectomy. IMPRESSION: No significant change compared to the prior study. No acute process. ACT 112: Negative or not required by law. Electronically signed by: Marquez Lindsay M.D. 01/07/2021 1:[address] 01/07/21 12:[address] DOSE: 953.63 mGy.cm HISTORY: fall TECHNIQUE: Multiaxial CT images of the head were performed without the use of intravenous contrast. Automated exposure control was utilized for this study. A dose lowering technique was utilized adhering to the principles of ALARA. Comparison: Head CT 10/11/2020. Findings: The paranasal sinuses and mastoid air cells are clear. The calvarium and skull base are intact. There is no mass, hematoma, midline shift, acute infarct. White matter hypodensity is nonspecific but suggestive of microvascular ischemic change. The ventricles and sulci demonstrate mild age-related involutional changes. There is an old small lacunar infarct within the right basal ganglia. Impression: No significant change compared to the prior study. No acute intracranial abnormality. ACT 112: Negative or not required by law. Electronically signed by: Marquez Lindsay M.D. 01/07/2021 12:50 PM Discharge Plan Visit Data Chief Complaint: Weakness ED Provider: Jesus Rosales Discharge Problem: Fall, CHI (closed head injury), Weakness Patient Disposition: Home - Self-Care Discharge Instructions Interventions: ED Discharge Assessment Last Done: 01/07/21 18:12
[2021-01-07 12:30] LABS: Appearance Urine Cloudy (Clear); Bacteria Urine Automated Negative (Negative); Bilirubin Urine Negative (Negative); Blood Urine 2+ (Negative); Cast Urine Automated 0 /lpf (0-5); Color Urine Yellow; Glucose Urine UA Negative (Negative); Ketones Urine Negative (Negative); Leukocyte Esterase Urine 3+ (Negative); Nitrite Urine Negative (Negative); Protein Urine 1+ (Negative); Specific Gravity Urine 1.007 (1.000-1.030); Urobilinogen Urine Negative (Negative); WBC Urine Automated >30 /hpf (0-5)
[2021-01-07 12:30] LABS: Albumin Level 3.2 gm/dl (3.4-5.0); BUN Creatinine Ratio 9.2 (10-20); Calcium 9.3 mg/dl (8.5-10.1); Creatinine Clr Calc Pharmacy 73.3 ml/min; Est GFR (African American) 74.6 ml/min; Est GFR (Non-African American) 64.3 ml/min; Magnesium 1.8 mg/dl (1.8-2.4); Potassium 4.1 mmol/L (3.5-5.1)
[2021-01-07 12:42] LABS: Albumin Globulin Ratio 0.9 (0.9-2); Bilirubin,Total 0.4 mg/dl (0.2-1); Globulin 3.5 gm/dl (2.5-4.0); Thyroid Stimulating Hormone 1.27 uIu/ml (0.300-4.500); Total Protein 6.7 gm/dl (6.4-8.2)
--- NOTE | 2021-01-07 12:51 | CT Scan Report ---
HEAD CT NONCONTRAST CT DOSE: 953.63 mGy.cm HISTORY: fall TECHNIQUE: Multiaxial CT images of the head were performed without the use of intravenous contrast. A utomated exposure control was utilized for this study. A dose lowering technique was utilized adheri ng to the principles of ALARA. Comparison: Head CT 10/11/2020. Findings: The paranasal sinuses and mastoid air cells are clear. The calvarium and skull base are int act. There is no mass, hematoma, midline shift, acute infarct. White matter hypodensity is nonspecifi c but suggestive of microvascular ischemic change. The ventricles and sulci demonstrate mild age-rela tere involutional changes. There is an old small lacunar infarct within the right basal ganglia. Impression: No significant change compared to the prior study. No acute intracranial abnormality. ACT 112: Negative or not required by law. Electronically signed by: Marquez Lindsay M.D. 01/07/2021 12:50 PM
--- NOTE | 2021-01-07 12:55 | CT Scan Report ---
CERVICAL SPINE CT CT DOSE: HISTORY: fall, neck pain TECHNIQUE: Multiaxial CT images of the cervical spine were performed and reformatted in the sagittal and coronal plane without the use of contrast. A dose lowering technique was utilized adhering to e principles of ALARA. COMPARISON: None. FINDINGS: No fractures within the cervical spine. There is a posterior fusion defect at C6 as well as a left C6 pars defect. Severe disc space narrowing at C4-C5 and C6-C7. Mild anterior wedging at T1 i s likely chronic.. No subluxation. Prevertebral soft tissues and the C1-C2 interval are intact. No pn eumothorax. IMPRESSION: No acute fractures within the cervical spine. ACT 112: Negative or not required by law. Electronically signed by: Marquez Lindsay M.D. 01/07/2021 12:53 PM
--- NOTE | 2021-01-07 13:14 | XRay Report ---
XR chest 1V portable HISTORY: Fall. weakness COMPARISON: Chest 10/11/2020. FINDINGS: No pneumothorax. No pleural effusions. Mild diffuse interstitial thickening, unchanged. Thi s is likely chronic. No new focal lung consolidations to suggest pneumonia. No evidence for pulmonary edema. The heart is top normal in size. There are poststernotomy changes. Mild elevation of the righ t hemidiaphragm, unchanged. Prior cholecystectomy. IMPRESSION: No significant change compared to the prior study. No acute process. ACT 112: Negative or not required by law. Electronically signed by: Marquez Lindsay M.D. 01/07/2021 1:12 PM
[2021-01-07] MEDS ORDERED: ACETAMINOPHEN 500 MG TAB PO STA (13:48)
[2021-01-07] MEDS ORDERED: DAPTOmycin 250 MG in SYRINGE 0 ML IV ONE (14:33)
[2021-01-07] MEDS: MACROBID 100MG HOME PACK 1 EA VIAL PO ONE ×2 (14:45→15:24)
--- NOTE | 2021-01-07 17:19 | History & Physical Report ---
Date of Service January 07, 2021 Assessment & Plan (1) Fall: (2) Weakness: Present on admission with recurrent fall and weakness CT head showed no acute intracranial abnormality CT cervical spine showed no acute fractures within the cervical spine. 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 Received IV dapto on admission, then abx was changed to IV cefepime Will change abx to IV cefepime since most recent culture on 11/24 was sensitive to it Will follow up urine sensitivity DM type 2 (diabetes mellitus, type 2): Will check Hba1c in am Will hold hold metformin and trulicity On Glargine/NovoLog per protocol Chronic diastolic CHF (congestive heart failure): continue metoprolol, torsemide Asymptomatic Hypertension: blood pressure stable continue metoprolol Cirrhosis of liver not due to alcohol: Euvolemic, no hepatic encephalopathy Continue torsemide, Aldactone, lactulose, Xifaxan Hypothyroidism: Continue levothyroxine Bipolar disorder: Anxiety: On Effexor, Lamictal, Abilify, clonazepam and trazodone Mood stable Chronic pain syndrome: Patient is on chronic morphine ER 50 mg twice daily and as needed oxycodone Reviewed PDMP DVT px on heparin subq CODE STATUS DNR History of Present Illness Chief Complaint: Weakness Primary Care Provider: Brian Domínguez MD 70 year-old female with significant past medical history of CAD with history of CABG x1 and multiple stents, T2DM, HTN, HLD, cirrhosis secondary to [place], diabetic gastroparesis, Charcot Rashmi tooth, neuropathy, chronic diastolic CHF, moderate left ear, GERD, portal hypertension gastropathy, thrombocytopenia, bipolar, anxiety, chronic pain syndrome secondary to back pain who presents to [facility] for weakness and fall. Caregiver at bedside. As per Caregiver, pt has been getting very weak lately. Pt had multiple falls in the few weeks with most recent one this morning when she hit her head. Pt said that her legs feel weak and collapsed on the floor. Caregiver said that pt has been increased urinary frequency with strong smell and cloudy color. Patient said that she had a cough and just completed a course of antibiotic with cefdinir for 10 days. Outpatient records showed on November 24 she had a urine culture and was treated for UTI. Patient said that she is confused but she was able to tell me why she was taking some of her medication and oriented with time and place. Currently denies any chest pain, palpitation, dizziness and shortness of breath. Allergies Allergy/AdvReac Type Severity Reaction Status Date / Time propoxyphene Allergy Mild Rash Verified 01/07/21 15:49 fentanyl AdvReac Intermediate PANIC Verified 01/07/21 15:49 WANTS TO RUN AND AGGRESSIVE zolpidem AdvReac Intermediate confusion Verified 01/07/21 15:49 methocarbamol AdvReac Mild DELERIUM Verified 01/07/21 15:49 Home Medications Medication Instructions Recorded Confirmed Type albuterol sulfate [Ventolin HFA] 2 puff INHALATION QID PRN 04/27/18 01/07/21 History aripiprazole 2 mg PO HS 04/27/18 01/07/21 History clonazepam 0.5 mg PO BID PRN 04/27/18 01/07/21 History ergocalciferol (vitamin D2) 50,000 units PO TH 04/27/18 01/07/21 History famotidine 40 mg PO HS 04/27/18 01/07/21 History lamotrigine 25 mg PO UD 04/27/18 01/07/21 History lamotrigine 100 mg PO QAM 04/27/18 01/07/21 History levothyroxine 88 mcg PO QAM 04/27/18 01/07/21 History nitroglycerin [Nitrostat] 0.4 mg SUBLINGUAL DIRECTED PRN 04/27/18 01/07/21 History omeprazole 20 mg PO BID 04/27/18 01/07/21 History ondansetron HCl 8 mg PO Q8H PRN 04/27/18 01/07/21 History torsemide 20 mg PO QAM 09/03/18 01/07/21 History montelukast 10 mg PO DAILY@1600 06/11/19 01/07/21 History spironolactone [Aldactone] 50 mg PO BID 09/15/19 01/07/21 History venlafaxine 75 mg PO QAM 09/15/19 01/07/21 History Basaglar KwikPen U-100 Insulin 15 unit SUBCUT QAM 12/22/19 01/07/21 History Trulicity 1.5 mg SUBCUT FR 12/22/19 01/07/21 History oxybutynin chloride [Ditropan XL] 10 mg PO HS 12/22/19 01/07/21 History morphine 15 mg PO Q12H 01/16/20 01/07/21 History Xifaxan 550 mg PO BID 03/21/20 01/07/21 History aspirin [Aspir-81] 81 mg PO QAM 03/21/20 01/07/21 History metformin 1,000 mg PO BID 03/21/20 01/07/21 History metoprolol succinate 50 mg PO BID 03/21/20 01/07/21 History trazodone 150 mg PO HS 03/21/20 01/07/21 History dicyclomine 10 mg PO QID PRN 01/07/21 01/07/21 History gabapentin 600 mg PO BID 01/07/21 01/07/21 History isosorbide mononitrate 30 mg PO QAM 01/07/21 01/07/21 History nitrofurantoin monohyd/m-cryst 100 mg PO Q12H 7 Days #14 cap 01/07/21 01/07/21 Rx [Macrobid] venlafaxine 150 mg PO QAM 01/07/21 01/07/21 History Past Med/Surg History Medical History (Updated 01/07/21 @ 12:27 by Jesus Rosales MD) Anxiety Bipolar disorder CAD (coronary artery disease) History of multiple PCI's to the RCA with subsequent CABG x1 in 2010 x 1 vessel Most recent cardiac testing-negative DSE in December 2017 Follows w/ Dr. Blackwell and Dr. Lucas [id number]-[id number] disease follows w/ Dr. Lemus Chronic diastolic CHF (congestive heart failure) Chronic pain syndrome Depression DM type 2 (diabetes mellitus, type 2) IDDM Dyslipidemia Encephalopathy d/c from [facility] 09/20/19 (hepatic encephalopathy) Gastroparesis GERD (gastroesophageal reflux disease) Hypertension Hypothyroidism Irregular heart beat follows Dr. Lucas / [facility] Liver cirrhosis secondary to [place] Moderate aortic stenosis ESP[place] (nonalcoholic steatohepatitis) Osteoarthritis Portal hypertensive gastropathy Spondylosis Urinary incontinence UTI (urinary tract infection) REASON FOR CIPRO Surgical History History of appendectomy History of back surgery sacral area History of cardiac cath multiple - most recent - 2 years ago @ [place] - FOR [facility] History of cataract surgery RT History of colonoscopy History of esophagogastroduodenoscopy (EGD) History of heart artery stent 2 yrs ago @ [facility] > unsure of how many stents > follows Dr. Lucas History of total right knee replacement Hx of cholecystectomy S/P CABG x 1 2011 - single vessel S/P CARLOS (total abdominal hysterectomy) Family History Father Coronary heart disease Brother Coronary heart disease Father Diabetes Mother Diabetes Social History Smoking Status: Never smoker Second Hand Exposure: Yes (DAUGHTER SMOKES); Hx Alcohol Use: No Hx Substance Use: No Preferred Language: Lao Communication Ability: Effective Telephone Recorder Required: No Beliefs That Will Affect Care: None marital status: / Current Living Situation: Alone Other Information That Helps Us Care for You: No Feels Safe at Home: Yes Safety Concerns: Feels Safe At This Time Assistive Devices: Glasses and Walker Assistive Devices Comment: bilateral ankle braces at bedside Review of Systems Review of Systems: All systems reviewed & are unremarkable except as noted in Subjective Physical Exam Physical Exam: General- No acute distress Head- atraumatic Eyes- PERRL, EOMI, ENT- oropharynx clear Neck- supple, no JVD Lungs- clear to auscultation Heart- regular rhythm; no murmur Abdomen- normal bowel sounds, soft, nontender Extremities- no calf tenderness Neuro- alert, oriented x 3; PERRL, EOMI; no facial palsy; no dysarthria Skin- warm & dry Results & Data Results & Data ([facility]) Vital Signs (Past 12 Hours) Vital Signs Temp Pulse Resp BP Pulse Ox 01/07/21 15:30 68 22 116/88 95 01/07/21 15:16 66 15 118/73 95 01/07/21 15:00 65 16 01/07/21 14:32 66 19 136/72 95 01/07/21 14:01 64 12 140/42 L 01/07/21 13:30 66 13 164/111 H 94 01/07/21 13:01 66 18 154/83 H 96 01/07/21 12:30 66 18 145/78 H 95 01/07/21 12:21 65 20 93 01/07/21 12:01 37.1 C 68 20 146/86 H 94 01/07/21 12:00 67 15 146/86 H 94
[2021-01-07] MEDS ORDERED: DICYCLOMINE HCL 10 MG CAP PO PRN (18:26)
[2021-01-07] MEDS ORDERED: CARBOHYDRATES FOR HYPOGLYCEMIA PO PRN ×2 (19:14→19:15)
[2021-01-07] MEDS ORDERED: GLUCOSE 40% GEL 15 GM TUBE PO PRN ×2 (19:14→19:15)
[2021-01-07] MEDS ORDERED: DEXTROSE 50% 50 ML SYRINGE IV PRN ×2 (19:14→19:15)
[2021-01-07] MEDS ORDERED: GLUCOSE 10 TABS/TUBE PO PRN ×2 (19:14→19:15)
[2021-01-07] MEDS ORDERED: GLUCAGON FOR INJ 1 MG VIAL SQ PRN (19:14)
[2021-01-07] MEDS ORDERED: GLUCAGON FOR INJ 1 MG VIAL IM PRN (19:15)
[2021-01-07] MEDS: ARIPIprazole 1 MG/ML ORAL SOLN 150 ML BTL PO SCH (20:16)
[2021-01-07] MEDS: MoRPHine SULFATE CR 15 MG TABCR PO SCH (20:16)
[2021-01-07] MEDS: CEFEPIME 2,000 MG in SYRINGE 0 ML IV SCH (20:16)
[2021-01-07] MEDS: GABAPENTIN 600 MG TAB PO SCH (20:17)
[2021-01-07] MEDS: FAMOTIDINE 40 MG TABLET PO SCH (20:17)
[2021-01-07] MEDS: lamoTRIgine 25 MG TAB PO SCH (20:18)
[2021-01-07] MEDS: rifAXIMin 550 MG TABLET PO SCH (20:18)
[2021-01-07] MEDS: METOPROLOL SUCC 50MG EXT REL TAB PO SCH (20:18)
[2021-01-07] MEDS: OXYBUTYNIN CHLORIDE XL 5 MG TABCR PO SCH (20:18)
[2021-01-07] MEDS: traZODone HCL 50 MG TAB PO SCH (20:19)
[2021-01-07] MEDS: PANTOprazole 40 MG TAB PO SCH (20:48)
[2021-01-07] MEDS: clonazePAM 0.5 MG TAB PO PRN (20:48)
[2021-01-07] MEDS: SPIRONOLACTONE 25 MG TAB PO SCH (20:48)
[2021-01-07] MEDS: INSULIN ASPART 100 UNITS/ML 3 ML PEN SC SCH (20:49)
[2021-01-07] MEDS ORDERED: oxyCODONE HCL IR 5 MG TAB (IMMEDIATE RELEASE) PO PRN (20:58)
[2021-01-07] MEDS ORDERED: ACETAMINOPHEN 325 MG TAB PO PRN (20:58)
[2021-01-08] MEDS: LEVOTHYROXINE SODIUM 88 MCG TABLET PO SCH (06:02)
[2021-01-08] MEDS: MoRPHine SULFATE CR 15 MG TABCR PO SCH ×2 (06:02→18:08)
[2021-01-08 06:20] LABS: Hematocrit (blood only) 38.5 % (37-47); Hemoglobin 11.9 g/dL (12.0-16.0); Mean Corpuscular Hemoglobin 23.8 pg (25-34); Mean Corpuscular Hgb Conc 30.9 g/dL (32-36); Mean Corpuscular Volume 76.8 fL (80-100); Platelet Count 153 K/uL (130-400); RDW Coefficient of Variation 16.9 % (11.5-14.5); RDW Standard Deviation 47.2 fL (36.4-46.3); Red Blood Count 5.01 M/uL (4.2-5.4); White Blood Count 8.58 K/uL (4.8-10.8)
--- NOTE | 2021-01-08 06:34 | Electrocardiogram Report ---
Test Reason : Blood Pressure : / mmHG Vent. Rate : 067 BPM Atrial Rate : 067 BPM P-R Int : 168 ms QRS Dur : 098 ms QT Int : 396 ms P-R-T Axes : 084 -32 062 degrees QTc Int : 418 ms Normal sinus rhythm Left axis deviation Abnormal ECG When compared with ECG of 21-MAR-2020 12:32, No significant change was found Confirmed by Vamshi Landaverde ([id number]) on 01/08/2021 6:33:54 AM Referred By: REFERRED SELF Confirmed By:Vamshi Landaverde
[2021-01-08 06:55] LABS: BUN Creatinine Ratio 10.2 (10-20); Calcium 9.5 mg/dl (8.5-10.1); Est GFR (African American) 76.6 ml/min; Est GFR (Non-African American) 66.1 ml/min; Potassium 3.9 mmol/L (3.5-5.1)
[2021-01-08 07:29] LABS: Estimated Average Glucose 177 mg/dl; Hemoglobin A1C 7.8 % (4.5-5.6)
[2021-01-08] MEDS: SPIRONOLACTONE 25 MG TAB PO SCH ×2 (07:45→20:16)
[2021-01-08] MEDS: VENLAFAXINE HCL XR 75 MG CAPXR PO SCH (07:45)
[2021-01-08] MEDS: PANTOprazole 40 MG TAB PO SCH ×2 (07:45→20:15)
[2021-01-08] MEDS: METOPROLOL SUCC 50MG EXT REL TAB PO SCH ×2 (07:45→20:15)
[2021-01-08] MEDS: VENLAFAXINE HCL XR 150 MG CAPXR PO SCH (07:45)
[2021-01-08] MEDS: rifAXIMin 550 MG TABLET PO SCH ×2 (07:45→20:16)
[2021-01-08] MEDS: TORSEMIDE 20 MG TAB PO SCH (07:45)
[2021-01-08] MEDS: lamoTRIgine 25 MG TAB PO SCH ×2 (07:46→21:52)
[2021-01-08] MEDS: ISOSORBIDE MONO EXTENDED REL 30 MG TABCR PO SCH (07:46)
[2021-01-08] MEDS: GABAPENTIN 600 MG TAB PO SCH ×2 (07:47→20:14)
[2021-01-08] MEDS: HEPARIN SOD 5,000 UNIT/0.5 ML VIAL SQ SCH ×2 (07:47→20:14)
[2021-01-08] MEDS: ASPIRIN 81 MG ECTAB PO SCH (07:47)
[2021-01-08] MEDS: CEFEPIME 2,000 MG in SYRINGE 0 ML IV SCH (08:53)
[2021-01-08] MEDS: INSULIN ASPART 100 UNITS/ML 3 ML PEN SC SCH ×4 (08:54→20:44)
[2021-01-08] MEDS: INSULIN GLARGINE SOLOSTAR 100 UNITS/ML 3 ML PEN SQ SCH (08:55)
[2021-01-08] MEDS ORDERED: ENOXAPARIN INJ 40 MG/0.4 ML SYR SQ SCH (09:00)
[2021-01-08] MEDS ORDERED: lamoTRIgine 100 MG TAB PO SCH (09:00)
[2021-01-08] MEDS: DAPTOmycin 475 MG in SYRINGE 0 ML IV SCH (15:08)
[2021-01-08] MEDS: MONTELUKAST SODIUM 10 MG TABLET PO SCH (15:44)
--- NOTE | 2021-01-08 17:25 | Hospitalist Progress Note ---
Date of Service January 08, 2021 Assessment & Plan (1) Fall: (2) Weakness: Present on admission with recurrent fall and weakness CT head showed no acute intracranial abnormality CT cervical spine showed no acute fractures within the cervical spine. 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 Received IV dapto on admission, then abx was changed to IV cefepime since most recent culture on 11/24 was sensitive to it Urine cx grew enterococcus species, might be VRE Since pt had hx of VRE that was sensitive only to Dapto, will change abx to IV Daptomycin Will follow up urine sensitivity DM type 2 (diabetes mellitus, type 2): Most recent hab1c 7.8 on 01/08/21 Continue to hold metformin and trulicity On Glargine/NovoLog per protocol Chronic diastolic CHF (congestive heart failure): continue metoprolol, torsemide Asymptomatic Hypertension: blood pressure stable continue metoprolol Cirrhosis of liver not due to alcohol: Euvolemic, no hepatic encephalopathy Continue torsemide, Aldactone, lactulose, Xifaxan Hypothyroidism: Continue levothyroxine Bipolar disorder: Anxiety: Continue Effexor, Lamictal, Abilify, clonazepam and trazodone Mood stable Chronic pain syndrome: Patient is on chronic morphine ER 50 mg twice daily and as needed oxycodone Reviewed PDMP DVT px on heparin subq CODE STATUS DNR Admission and Anticipated Discharge Date Admission Date: January 07, 2021 Subjective Pt was seen and examined for follow up of weakness Lying in bed with no acute distress Pt said that she feels weak Denies any chest pain, palpitation, dizziness and SOB Review of Systems Review of Systems: All systems reviewed & are unremarkable except as noted in Subjective Physical Exam Physical Exam: General- No acute distress Head- atraumatic Eyes- PERRL, EOMI, ENT- oropharynx clear Neck- supple, no JVD Lungs- clear to auscultation Heart- regular rhythm; no murmur Abdomen- normal bowel sounds, soft, nontender Extremities- no calf tenderness Neuro- alert, oriented x 3; PERRL, EOMI; no facial palsy; no dysarthria Skin- warm & dry Results & Data Results & [facility] ([facility]) Vital Signs (Past 12 Hours) Vital Signs Temp Pulse Resp BP Pulse Ox 01/08/21 05:50 37.3 C 71 16 146/86 H 97
[2021-01-08] MEDS: clonazePAM 0.5 MG TAB PO PRN (20:13)
[2021-01-08] MEDS: ARIPIprazole 1 MG/ML ORAL SOLN 150 ML BTL PO SCH (20:13)
[2021-01-08] MEDS: FAMOTIDINE 40 MG TABLET PO SCH (20:14)
[2021-01-08] MEDS: OXYBUTYNIN CHLORIDE XL 5 MG TABCR PO SCH (20:15)
[2021-01-08] MEDS: traZODone HCL 50 MG TAB PO SCH (20:16)
[2021-01-08] MEDS: LACTULOSE SYRUP 30 GM/45 ML UDP PO SCH (20:17)
[2021-01-09] MEDS: LACTULOSE SYRUP 30 GM/45 ML UDP PO SCH ×2 (05:28→18:01)
[2021-01-09] MEDS: LEVOTHYROXINE SODIUM 88 MCG TABLET PO SCH (05:28)
[2021-01-09] MEDS: MoRPHine SULFATE CR 15 MG TABCR PO SCH ×2 (05:28→18:21)
[2021-01-09 06:36] LABS: Hematocrit (blood only) 39.8 % (37-47); Hemoglobin 12.7 g/dL (12.0-16.0); Mean Corpuscular Hemoglobin 23.6 pg (25-34); Mean Corpuscular Hgb Conc 31.9 g/dL (32-36); Mean Corpuscular Volume 74.1 fL (80-100); Mean Platelet Volume 9.7 fL (7.4-10.4); Platelet Count 138 K/uL (130-400); RDW Coefficient of Variation 16.9 % (11.5-14.5); RDW Standard Deviation 45.7 fL (36.4-46.3); Red Blood Count 5.37 M/uL (4.2-5.4); White Blood Count 7.93 K/uL (4.8-10.8)
[2021-01-09] MEDS: METOPROLOL SUCC 50MG EXT REL TAB PO SCH ×2 (09:29→20:46)
[2021-01-09] MEDS: ASPIRIN 81 MG ECTAB PO SCH (09:29)
[2021-01-09] MEDS: ISOSORBIDE MONO EXTENDED REL 30 MG TABCR PO SCH (09:29)
[2021-01-09] MEDS: GABAPENTIN 600 MG TAB PO SCH ×2 (09:29→20:47)
[2021-01-09] MEDS: HEPARIN SOD 5,000 UNIT/0.5 ML VIAL SQ SCH ×2 (09:29→20:48)
[2021-01-09] MEDS: PANTOprazole 40 MG TAB PO SCH ×2 (09:29→20:44)
[2021-01-09] MEDS: SPIRONOLACTONE 25 MG TAB PO SCH ×2 (09:30→20:46)
[2021-01-09] MEDS: VENLAFAXINE HCL XR 150 MG CAPXR PO SCH (09:30)
[2021-01-09] MEDS: TORSEMIDE 20 MG TAB PO SCH (09:30)
[2021-01-09] MEDS: rifAXIMin 550 MG TABLET PO SCH ×2 (09:30→20:45)
[2021-01-09] MEDS: lamoTRIgine 25 MG TAB PO SCH ×2 (09:30→20:47)
[2021-01-09] MEDS: VENLAFAXINE HCL XR 75 MG CAPXR PO SCH (09:30)
[2021-01-09] MEDS: INSULIN GLARGINE SOLOSTAR 100 UNITS/ML 3 ML PEN SQ SCH (10:02)
[2021-01-09] MEDS: INSULIN ASPART 100 UNITS/ML 3 ML PEN SC SCH ×4 (10:03→20:48)
[2021-01-09] MEDS: ONDANSETRON 8MG OD TAB PO PRN ×2 (12:18→20:43)
[2021-01-09] MEDS: DAPTOmycin 475 MG in SYRINGE 0 ML IV SCH (14:15)
[2021-01-09] MEDS: MONTELUKAST SODIUM 10 MG TABLET PO SCH (16:14)
--- NOTE | 2021-01-09 19:47 | Hospitalist Progress Note ---
Date of Service January 09, 2021 Assessment & Plan (1) Fall: (2) Weakness: Present on admission with recurrent fall and weakness CT head showed no acute intracranial abnormality CT cervical spine showed no acute fractures within the cervical spine. 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 Received IV dapto on admission, then abx was changed to IV cefepime since most recent culture on 11/24 was sensitive to it Urine cx grew enterococcus faecalis Since pt had hx of VRE that was sensitive only to Dapto, will change abx to IV Daptomycin Will transition to Augmentin PO and discontinued Daptomycin DM type 2 (diabetes mellitus, type 2): Most recent hab1c 7.8 on 01/08/21 Continue to hold metformin and trulicity On Glargine/NovoLog per protocol Chronic diastolic CHF (congestive heart failure): continue metoprolol, torsemide Asymptomatic Hypertension: blood pressure stable continue metoprolol Cirrhosis of liver not due to alcohol: Euvolemic, no hepatic encephalopathy Continue torsemide, Aldactone, lactulose, Xifaxan Hypothyroidism: Continue levothyroxine Bipolar disorder: Anxiety: Continue Effexor, Lamictal, Abilify, clonazepam and trazodone Mood stable Chronic pain syndrome: Patient is on chronic morphine ER 50 mg twice daily and as needed oxycodone Reviewed PDMP DVT px on heparin subq CODE STATUS DNR Dispositon Plan to discharge tomorrow if stable Admission and Anticipated Discharge Date Admission Date: January 07, 2021 Subjective Pt was seen and examined for follow up of weakness Lying in bed with no acute distress Pt said that she feels ok Nurse said that pt had nausea early and after giving Zofran pt looked confused Spoke to daughter at bedside and provided with updates Denies any chest pain, palpitation, dizziness and SOB Review of Systems Review of Systems: All systems reviewed & are unremarkable except as noted in Subjective Physical Exam Physical Exam: General- No acute distress Head- atraumatic Eyes- PERRL, EOMI, ENT- oropharynx clear Neck- supple, no JVD Lungs- clear to auscultation Heart- regular rhythm; no murmur Abdomen- normal bowel sounds, soft, nontender Extremities- no calf tenderness Neuro- alert, oriented x 3; PERRL, EOMI; no facial palsy; no dysarthria Skin- warm & dry Results & Data Results & Data ([facility]) Vital Signs (Past 12 Hours) Vital Signs Temp Pulse Resp BP Pulse Ox 01/09/21 15:29 36.9 C 76 16 116/75 93
[2021-01-09] MEDS: ARIPIprazole 1 MG/ML ORAL SOLN 150 ML BTL PO SCH (20:43)
[2021-01-09] MEDS: OXYBUTYNIN CHLORIDE XL 5 MG TABCR PO SCH (20:45)
[2021-01-09] MEDS: traZODone HCL 50 MG TAB PO SCH (20:47)
[2021-01-09] MEDS: FAMOTIDINE 40 MG TABLET PO SCH (20:47)
[2021-01-10] MEDS: LACTULOSE SYRUP 30 GM/45 ML UDP PO SCH ×2 (05:11→17:59)
[2021-01-10] MEDS: LEVOTHYROXINE SODIUM 88 MCG TABLET PO SCH (06:01)
[2021-01-10] MEDS: MoRPHine SULFATE CR 15 MG TABCR PO SCH ×2 (06:02→17:59)
[2021-01-10] MEDS: INSULIN ASPART 100 UNITS/ML 3 ML PEN SC SCH ×4 (08:53→20:59)
[2021-01-10] MEDS: INSULIN GLARGINE SOLOSTAR 100 UNITS/ML 3 ML PEN SQ SCH (08:54)
[2021-01-10] MEDS: VENLAFAXINE HCL XR 150 MG CAPXR PO SCH (08:56)
[2021-01-10] MEDS: VENLAFAXINE HCL XR 75 MG CAPXR PO SCH (08:56)
[2021-01-10] MEDS: lamoTRIgine 25 MG TAB PO SCH ×2 (08:56→19:45)
[2021-01-10] MEDS: SPIRONOLACTONE 25 MG TAB PO SCH (08:57)
[2021-01-10] MEDS: ASPIRIN 81 MG ECTAB PO SCH (08:57)
[2021-01-10] MEDS: GABAPENTIN 600 MG TAB PO SCH ×2 (08:57→19:46)
[2021-01-10] MEDS: ISOSORBIDE MONO EXTENDED REL 30 MG TABCR PO SCH (08:57)
[2021-01-10] MEDS: TORSEMIDE 20 MG TAB PO SCH (08:58)
[2021-01-10] MEDS: METOPROLOL SUCC 50MG EXT REL TAB PO SCH ×2 (08:58→19:46)
[2021-01-10] MEDS: HEPARIN SOD 5,000 UNIT/0.5 ML VIAL SQ SCH ×2 (08:58→19:46)
[2021-01-10] MEDS: rifAXIMin 550 MG TABLET PO SCH ×2 (08:58→19:45)
[2021-01-10] MEDS: PANTOprazole 40 MG TAB PO SCH ×2 (08:58→19:46)
[2021-01-10] MEDS: AMOXICILLIN/CLAVULANATE 875 MG TAB PO SCH ×2 (08:58→18:06)
[2021-01-10 10:19] LABS: Creatinine Clr Calc Pharmacy 49.6 ml/min; Est GFR (African American) 46.5 ml/min; Est GFR (Non-African American) 40.1 ml/min
[2021-01-10] MEDS: ONDANSETRON 8MG OD TAB PO PRN (15:29)
[2021-01-10] MEDS ORDERED: SODIUM CHLORIDE 0.9% 1000ML 1,000 ML IV SCH (15:30)
[2021-01-10] MEDS: MONTELUKAST SODIUM 10 MG TABLET PO SCH (15:34)
--- NOTE | 2021-01-10 17:27 | Hospitalist Progress Note ---
Date of Service January 10, 2021 Assessment & Plan (1) Fall: (2) Weakness: confusion /metabolic encephalopathy vs hospital acquired delirium " sundowning effect" per daughter , having confusion , sundowning effects since admission was confused last night ; was seeing bear -out side her window pt appears to be lucid this afternoon she does not recall the events per daughter pt gets theses episodes frequently with infection /UTI was at Rehab in past , had severe delirium in evenings at home she is usually less confused daughter wants to make sure , pt's delirium is improved prior to discharge home Ammonia level checked yesterday was < 10 will ask nursing to provide assurance , observe fall precaution avoid BDZ as it can cause rebound agitation Present on admission with recurrent fall and weakness CT head showed no acute intracranial abnormality CT cervical spine showed no acute fractures within the cervical spine. Continue PT/OT Fall precaution UTI -enterpcoccus Urine cx grew enterococcus faecalis abx changed to amoxicllin per sensitivity DM type 2 (diabetes mellitus, type 2): Most recent hab1c 7.8 on 01/08/21 Continue to hold metformin and trulicity On Glargine/NovoLog per protocol Acute renal failure on CKD stage 3 : hold diuretics gentle IV fluids no reports of diarrhea or nausea /vomiting avoid NSAID's Chronic diastolic CHF (congestive heart failure): hold diuretics due to above Hypertension: blood pressure stable continue metoprolol Cirrhosis of liver not due to alcohol: Euvolemic, no hepatic encephalopathy ammonia level wnl hold diuretics due to CEE cont Xifaximin , lactulose Hypothyroidism: Continue levothyroxine Bipolar disorder: Anxiety: Continue Effexor, Lamictal, Abilify, clonazepam and trazodone Mood stable Chronic pain syndrome: Patient is on chronic morphine ER 50 mg twice daily and as needed oxycodone Reviewed PDMP DVT px on heparin subq CODE STATUS DNR Dispositon lives at home , has home and school visitor support expected to be discharged home when medically stable update given to daughter Carolyn at bedside Admission and Anticipated Discharge Date Admission Date: January 07, 2021 Subjective Pt was seen and examined for follow up of weakness /UTI daughter present at bedside pt sitting on chair , says she feels fine , has been afebrile no fever or chills weakness has improved offers no other complains Review of Systems Review of Systems: All systems reviewed & are unremarkable except as noted in Subjective Physical Exam Constitutional: WD/WN, vitals as above elderly female , very pleasant , no apparent distress Eyes: PERRL, conjunctivae normal, anicteric sclerae ENMT: external ear and nose normal, oropharynx normal Neck: trachea midline, no thyromegaly Respiratory: normal respiratory effort, lungs clear to auscultation Cardiovascular: RRR, no murmur, no edema Gastrointestinal (Abdomen): Percussion/Palpation: abdomen soft; abdomen nonten faith Musculoskeletal: no cyanosis or clubbing, extremities motor strength 5/5 Skin: no rashes, warm and dry Neurologic: PERRL, EOMI, accommodation nl, no face palsy, no dysarthria Psychiatric: Orientation: alert, oriented to person and oriented to place Affect: euthymic affect Results & Data Results & Data ([place]) Vital Signs (Past 12 Hours) Vital Signs Temp Pulse Resp BP Pulse Ox 01/10/21 15:33 37.2 C 77 20 125/83 97 01/10/21 07:46 36.7 C 74 20 118/77 93
[2021-01-10] MEDS ORDERED: PROCHLORPERAZINE MALEATE 5 MG TAB PO PRN (18:31)
[2021-01-10] MEDS: OXYBUTYNIN CHLORIDE XL 5 MG TABCR PO SCH (19:45)
[2021-01-10] MEDS: ARIPIprazole 1 MG/ML ORAL SOLN 150 ML BTL PO SCH (19:46)
[2021-01-10] MEDS: FAMOTIDINE 40 MG TABLET PO SCH (19:46)
[2021-01-10] MEDS: AMOXICILLIN 500 MG CAP PO SCH (19:46)
[2021-01-10] MEDS: traZODone HCL 50 MG TAB PO SCH (19:47)
[2021-01-11] MEDS: LACTULOSE SYRUP 30 GM/45 ML UDP PO SCH ×2 (05:57→17:55)
[2021-01-11] MEDS: MoRPHine SULFATE CR 15 MG TABCR PO SCH ×2 (05:57→17:56)
[2021-01-11] MEDS: LEVOTHYROXINE SODIUM 88 MCG TABLET PO SCH (05:59)
[2021-01-11 07:09] LABS: BUN Creatinine Ratio 10.5 (10-20); Calcium 8.6 mg/dl (8.5-10.1); Creatinine Clr Calc Pharmacy 60.5 ml/min; Est GFR (African American) 59.1 ml/min; Potassium 3.5 mmol/L (3.5-5.1)
[2021-01-11] MEDS: AMOXICILLIN 500 MG CAP PO SCH ×2 (08:57→17:45)
[2021-01-11] MEDS: GABAPENTIN 600 MG TAB PO SCH ×2 (08:57→20:44)
[2021-01-11] MEDS: SACCHAROMYCES BOULARDII 250 MG CAP PO SCH (08:57)
[2021-01-11] MEDS: VENLAFAXINE HCL XR 150 MG CAPXR PO SCH (08:58)
[2021-01-11] MEDS: VENLAFAXINE HCL XR 75 MG CAPXR PO SCH (08:58)
[2021-01-11] MEDS: PANTOprazole 40 MG TAB PO SCH ×2 (08:58→20:45)
[2021-01-11] MEDS: lamoTRIgine 25 MG TAB PO SCH ×2 (08:58→20:45)
[2021-01-11] MEDS: ISOSORBIDE MONO EXTENDED REL 30 MG TABCR PO SCH (08:58)
[2021-01-11] MEDS: ASPIRIN 81 MG ECTAB PO SCH (08:58)
[2021-01-11] MEDS: rifAXIMin 550 MG TABLET PO SCH ×2 (08:59→20:44)
[2021-01-11] MEDS: METOPROLOL SUCC 50MG EXT REL TAB PO SCH ×2 (08:59→20:51)
[2021-01-11] MEDS: HEPARIN SOD 5,000 UNIT/0.5 ML VIAL SQ SCH ×2 (08:59→20:48)
[2021-01-11] MEDS ORDERED: ERGOCALCIFEROL 50,000 UNITS 1250 MCG CAP PO SCH (09:00)
[2021-01-11] MEDS: INSULIN GLARGINE SOLOSTAR 100 UNITS/ML 3 ML PEN SQ SCH (09:00)
[2021-01-11] MEDS: INSULIN ASPART 100 UNITS/ML 3 ML PEN SC SCH ×4 (09:02→21:03)
--- NOTE | 2021-01-11 13:14 | Hospitalist Progress Note ---
Date of Service January 11, 2021 Assessment & Plan (1) Fall: (2) Weakness: confusion /metabolic encephalopathy vs hospital acquired delirium " sundowning effect" mental status improved to baseline had a good night -no overt agitation , except for being forgetful lucid and oriented today Present on admission with recurrent fall and weakness CT head showed no acute intracranial abnormality CT cervical spine showed no acute fractures within the cervical spine. UTI -enterpcoccus Urine cx grew enterococcus faecalis abx changed to amoxicllin PO per sensitivity DM type 2 (diabetes mellitus, type 2): Most recent hab1c 7.8 on 01/08/21 Continue to hold metformin and trulicity On Glargine/NovoLog per protocol Acute renal failure on CKD stage 3 : resolved, after giving IV fluid diuretics , Tosemide /aldactone resumed repeat BMP in am Hyponatremia : possible due to IV fluid //dilutional IVF d/urvashi diuretics resumed repeat BMP in am Chronic diastolic CHF (congestive heart failure): hold diuretics due to above Hypertension: blood pressure stable continue metoprolol Cirrhosis of liver not due to alcohol: Euvolemic, no hepatic encephalopathy ammonia level wnl diuretics resumed cont Xifaximin , lactulose Hypothyroidism: Continue levothyroxine Bipolar disorder: Anxiety: Continue Effexor, Lamictal, Abilify, clonazepam and trazodone Mood stable Chronic pain syndrome: Patient is on chronic morphine ER 50 mg twice daily and as needed oxycodone PDMP was reviewed DVT px on heparin subq CODE STATUS DNR Dispositon lives at home , has home health care coordinator support will hold dc home today for hyponatremia plan to discharge home tomorrow if electrolytes stable Admission and Anticipated Discharge Date Admission Date: January 07, 2021 Subjective Pt was seen and examined for follow up of weakness /UTI Patient is doing better today, asking to go home was confused earlier today, No agitation or combativeness very pleasant and co-operative while talking to me says she has been doing well so far , no cough , no abdominal pain or discomfort Review of Systems Review of Systems: All systems reviewed & are unremarkable except as noted in Subjective Physical Exam Constitutional: WD/WN, vitals as above Eyes: PERRL, conjunctivae normal, anicteric sclerae ENMT: external ear and nose normal, oropharynx normal Neck: trachea midline, no thyromegaly Respiratory: normal respiratory effort, lungs clear to auscultation Cardiovascular: RRR, no murmur, no edema Gastrointestinal (Abdomen): Percussion/Palpation: abdomen soft; abdomen nonten faith Musculoskeletal: no cyanosis or clubbing, extremities motor strength 5/5 Skin: no rashes, warm and dry Neurologic: PERRL, EOMI, accommodation nl, no face palsy, no dysarthria Psychiatric: Orientation: alert, oriented to person and oriented to place Affect: euthymic affect Results & Data Results & Data ([facility]) Vital Signs (Past 12 Hours) Vital Signs Temp Pulse Resp BP Pulse Ox 01/11/21 07:40 37.2 C 66 20 128/84 93
[2021-01-11] MEDS ORDERED: TORSEMIDE 20 MG TAB PO ONE (13:15)
[2021-01-11] MEDS: clonazePAM 0.5 MG TAB PO PRN (16:30)
[2021-01-11] MEDS: MONTELUKAST SODIUM 10 MG TABLET PO SCH (17:45)
[2021-01-11] MEDS: ARIPIprazole 1 MG/ML ORAL SOLN 150 ML BTL PO SCH (20:44)
[2021-01-11] MEDS: OXYBUTYNIN CHLORIDE XL 5 MG TABCR PO SCH (20:44)
[2021-01-11] MEDS: FAMOTIDINE 40 MG TABLET PO SCH (20:45)
[2021-01-11] MEDS: traZODone HCL 50 MG TAB PO SCH (20:46)
[2021-01-11] MEDS: SPIRONOLACTONE 25 MG TAB PO SCH (20:47)
[2021-01-12] MEDS: LACTULOSE SYRUP 30 GM/45 ML UDP PO SCH (06:16)
[2021-01-12] MEDS: LEVOTHYROXINE SODIUM 88 MCG TABLET PO SCH (06:17)
[2021-01-12] MEDS: MoRPHine SULFATE CR 15 MG TABCR PO SCH (06:17)
[2021-01-12] MEDS: clonazePAM 0.5 MG TAB PO PRN (08:15)
[2021-01-12] MEDS: SPIRONOLACTONE 25 MG TAB PO SCH (08:19)
[2021-01-12] MEDS: TORSEMIDE 20 MG TAB PO SCH (08:19)
[2021-01-12] MEDS: GABAPENTIN 600 MG TAB PO SCH (08:20)
[2021-01-12] MEDS: ISOSORBIDE MONO EXTENDED REL 30 MG TABCR PO SCH ×2 (09:10→10:23)
[2021-01-12] MEDS: HEPARIN SOD 5,000 UNIT/0.5 ML VIAL SQ SCH (09:10)
[2021-01-12] MEDS: ASPIRIN 81 MG ECTAB PO SCH ×2 (09:10→10:24)
[2021-01-12] MEDS: lamoTRIgine 25 MG TAB PO SCH ×2 (09:10→10:23)
[2021-01-12] MEDS: METOPROLOL SUCC 50MG EXT REL TAB PO SCH ×2 (09:10→10:24)
[2021-01-12] MEDS: AMOXICILLIN 500 MG CAP PO SCH ×2 (09:10→10:24)
[2021-01-12] MEDS: SACCHAROMYCES BOULARDII 250 MG CAP PO SCH ×2 (09:11→10:23)
[2021-01-12] MEDS: PANTOprazole 40 MG TAB PO SCH ×2 (09:11→10:24)
[2021-01-12] MEDS: VENLAFAXINE HCL XR 150 MG CAPXR PO SCH ×2 (09:11→10:23)
[2021-01-12] MEDS: VENLAFAXINE HCL XR 75 MG CAPXR PO SCH ×2 (09:11→10:23)
[2021-01-12] MEDS: INSULIN ASPART 100 UNITS/ML 3 ML PEN SC SCH (09:11)
[2021-01-12] MEDS: rifAXIMin 550 MG TABLET PO SCH ×2 (09:11→10:24)
[2021-01-12] MEDS: INSULIN GLARGINE SOLOSTAR 100 UNITS/ML 3 ML PEN SQ SCH (09:12)
[2021-01-12 10:27] LABS: BUN Creatinine Ratio 9.1 (10-20); Calcium 9.1 mg/dl (8.5-10.1); Est GFR (African American) 65.6 ml/min; Est GFR (Non-African American) 56.6 ml/min; Potassium 3.8 mmol/L (3.5-5.1)
--- NOTE | 2021-01-13 18:38 | Discharge Summary ---
Date of Service January 13, 2021 Admission HPI Per Admitting Provider 70 year-old female with significant past medical history of CAD with history of CABG x1 and multiple stents, T2DM, HTN, HLD, cirrhosis secondary to [place], diabetic gastroparesis, Charcot Rashmi tooth, neuropathy, chronic diastolic CHF, moderate left ear, GERD, portal hypertension gastropathy, thrombocytopenia, bipolar, anxiety, chronic pain syndrome secondary to back pain who presents to [facility] for weakness and fall. Caregiver at bedside. As per Caregiver, pt has been getting very weak lately. Pt had multiple falls in the few weeks with most recent one this morning when she hit her head. Pt said that her legs feel weak and collapsed on the floor. Caregiver said that pt has been increased urinary frequency with strong smell and cloudy color. Patient said that she had a cough and just completed a course of antibiotic with cefdinir for 10 days. Outpatient records showed on November 24 she had a urine culture and was treated for UTI. Patient said that she is confused but she was able to tell me why she was taking some of her medication and oriented with time and place. Currently denies any chest pain, palpitation, dizziness and shortness of breath. Principal Diagnosis Fall Acute renal failure on CKD stage III: Resolved Confusion metabolic encephalopathy Cirrhosis of liver UTI/Enterococcus Discharge Exam Constitutional WD/WN, vitals as above Eyes PERRL, conjunctivae normal, anicteric sclerae ENMT external ear and nose normal, oropharynx normal Neck trachea midline, no thyromegaly Respiratory normal respiratory effort, lungs clear to auscultation Cardiovascular RRR, no murmur, no edema Gastrointestinal (Abdomen) Percussion/Palpation: abdomen soft; abdomen nontender Musculoskeletal no cyanosis or clubbing, extremities motor strength 5/5 Skin no rashes, warm and dry Neurologic PERRL, EOMI, accommodation nl, no face palsy, no dysarthria Psychiatric Orientation: alert, oriented to person and oriented to place Affect: euthymic affect Discharge Data Allergies Allergy/AdvReac Type Severity Reaction Status Date / Time propoxyphene Allergy Mild Rash Verified 01/07/21 15:49 fentanyl AdvReac Intermediate PANIC Verified 01/07/21 15:49 WANTS TO RUN AND AGGRESSIVE zolpidem AdvReac Intermediate confusion Verified 01/07/21 15:49 methocarbamol AdvReac Mild DELERIUM Verified 01/07/21 15:49 Consultations 01/07/21 15:49 ED Decision to Admit Stat Ordered Studies 01/07/21 12:11 CT cervical spine wo con Stat CT head/brain wo con Stat Hospital Course (1) Fall: (2) Weakness: confusion /metabolic encephalopathy vs hospital acquired delirium " sundowning effect" very delirious , confused this am , refused labs and meds daughter arrived to calm patient down per daughter the longer patient stays in hospital , more confusion happens has aid service at home , comfortable to take her home today pt appears more calm while getting dressed to go home took her am meds and allowed for lab draw am labs shows normal renal function , persisted hyponatremia , doubt that is contributing to confusion as pt is more oriented with prospect of going home -most likely hospital acquired pneumonia discharged home with daughter today Present on admission with recurrent fall and weakness CT head showed no acute intracranial abnormality CT cervical spine showed no acute fractures within the cervical spine. UTI -enterpcoccus Urine cx grew enterococcus faecalis abx changed to amoxicllin PO per sensitivity complete #5 days treatment DM type 2 (diabetes mellitus, type 2): Most recent hab1c 7.8 on 01/08/21 Continue to hold metformin and trulicity On Glargine/NovoLog per protocol Acute renal failure on CKD stage 3 : resolved, after giving IV fluid diuretics , Tosemide /aldactone resumed Hyponatremia : possible due to IV fluid //dilutional IVF d/urvashi diuretics resumed am labs shows persisted hyponatremia will have repeat BMP check in a week Chronic diastolic CHF (congestive heart failure): diuretics resumed Hypertension: blood pressure stable continue metoprolol Cirrhosis of liver not due to alcohol: Euvolemic, no hepatic encephalopathy ammonia level wnl diuretics resumed cont Xifaximin , lactulose Hypothyroidism: Continue levothyroxine Bipolar disorder: Anxiety: Continue Effexor, Lamictal, Abilify, clonazepam and trazodone Mood stable Chronic pain syndrome: Patient is on chronic morphine ER 50 mg twice daily and as needed oxycodone PDMP was reviewed discharged home with chronic pain meds DVT px on heparin subq CODE STATUS DNR Dispositon pt is discharged to home today Total Time Total Time Spent Total Time Spent (In Minutes): approx 38 mins Total Time Includes: Examination of the Patient, Discharge Planning and Medication Reconciliation Discharge Plan Discharge Items Patient Disposition: Home - Home Health Services Reason For Visit: WEAKNESS Discharge Diagnosis: Fall Acute renal failure on CKD stage III: Resolved Confusion metabolic encephalopathy Cirrhosis of liver UTI/Enterococcus Activity: As commented below Activity Comment: As tolerated, observe fall precaution Non-emergency contact: Primary Care Provider Call non-emergency contact if: you have any medication questions Follow-up/Referrals: Brian Domínguez MD [Primary Care Provider] - (Date & Time 01/16/2021 2:00 PM Provider Brian Domínguez MD [facility] ) Diet: Heart Healthy and Low Sodium (2gm) Addtl Attending Provider Instructions: Lab work: Basic metabolic panel within next physician visit Pending Studies at Discharge: No Stand-Alone Forms: My [facility], Smoking Cessation Medications and DC Order Prescriptions: Continued ondansetron HCl 8 mg tablet 8 mg PO Q8H PRN (Reason: Nausea) RF: 0 famotidine 40 mg tablet 40 mg PO HS RF: 0 lamotrigine 25 mg tablet 25 mg PO UD RF: 0 levothyroxine 88 mcg tablet 88 mcg PO QAM RF: 0 omeprazole 20 mg capsule,delayed release(DR/EC) 20 mg PO BID RF: 0 lamotrigine 100 mg tablet 100 mg PO QAM RF: 0 aripiprazole 2 mg tablet 2 mg PO HS RF: 0 nitroglycerin [Nitrostat] 0.4 mg Tablet, Sublingual 0.4 mg Sublingual DIRECTED PRN (Reason: Chest Pain) RF: 0 ergocalciferol (vitamin D2) 50,000 unit Capsule 50,000 units PO TH RF: 0 albuterol sulfate [Ventolin HFA] 90 mcg/actuation Hfa Aerosol Inhaler 2 puff INHALATION QID PRN (Reason: Shortness Of Breath Or Wheezing) RF: 0 morphine 15 mg Tablet Extended Release 15 mg PO Q12H RF: 0 torsemide 20 mg tablet 20 mg PO QAM RF: 0 montelukast 10 mg Tablet 10 mg PO DAILY@1600 RF: 0 Basaglar KwikPen U-100 Insulin 100 unit/mL (3 mL) Insulin Pen 15 unit SUBCUT QAM RF: 0 Trulicity 1.5 mg/0.5 mL Pen Injector 1.5 mg SUBCUT FR RF: 0 oxybutynin chloride [Ditropan XL] 10 mg Tablet Extended Release 24hr 10 mg PO HS RF: 0 spironolactone [Aldactone] 50 mg tablet 50 mg PO BID RF: 0 venlafaxine 75 mg capsule,extended release 24hr 75 mg PO QAM RF: 0 trazodone 50 mg Tablet 150 mg PO HS RF: 0 metoprolol succinate 50 mg Tablet Extended Release 24 Hr 50 mg PO BID RF: 0 metformin 500 mg tablet 1,000 mg PO BID RF: 0 Xifaxan 550 mg Tablet 550 mg PO BID RF: 0 aspirin [Aspir-81] 81 mg Tablet,Delayed Release (Dr/Ec) 81 mg PO QAM RF: 0 isosorbide mononitrate 30 mg tablet extended release 24 hr 30 mg PO QAM RF: 0 venlafaxine 150 mg capsule,extended release 24hr 150 mg PO QAM RF: 0 dicyclomine 10 mg Capsule 10 mg PO QID PRN (Reason: ibs) RF: 0 gabapentin 600 mg tablet 600 mg PO BID RF: 0 Changed clonazepam 0.5 mg tablet 0.5 mg PO TID Qty: 0 RF: 0 Discharge Orders: Discharge Order (Routine); Ordered 01/12/21 Ordered By: Julianne Doshi/Other Patient Handouts: Managing Type 2 Diabetes, Hyponatremia Dc Admission Data Admit Date/Time: 01/07/21 17:19 Attending Provider: Julianne Armijo Admit Provider: Markos Marroquin Primary Care Provider: Brian Domínguez Other Providers: Markos Marroquin Other Interventions: Discharge Summary Assessment (RN) Last Done: 01/12/21 10:43
== END 2021-01-12 11:06 | disposition home health service (06) | DRG 689 ==
LOC: ED 11:50 → SUATTDRO 17:19 → 3W 17:19

== ENCOUNTER 2021-01-25 21:46 | Inpatient (IN) ==
[2021-01-25] MEDS ORDERED: SODIUM CHLORIDE 0.9% 500 ML IV STA (22:40)
[2021-01-25 23:10] LABS: Basophils # (auto) 0.04 K/uL (0-0.2); Basophils % (auto) 0.5 %; Eosinophils # (auto) 0.28 K/uL (0-0.5); Eosinophils % (auto) 3.8 %; Hematocrit (blood only) 38.2 % (37-47); Hemoglobin 12.2 g/dL (12.0-16.0); Immature Granulocytes # (auto) 0.03 K/uL (0.00-0.02); Immature Granulocytes % (auto) 0.4 %; Lymphocytes # (auto) 2.16 K/uL (1.2-3.4); Mean Corpuscular Hemoglobin 24.1 pg (25-34); Mean Corpuscular Hgb Conc 31.9 g/dL (32-36); Mean Corpuscular Volume 75.5 fL (80-100); Mean Platelet Volume 10.1 fL (7.4-10.4); Monocytes # (auto) 0.73 K/uL (0.11-0.59); Monocytes % (auto) 9.8 %; Neutrophils # (auto) 4.22 K/uL (1.4-6.5); Neutrophils % (auto) 56.5 %; Platelet Count 148 K/uL (130-400); RDW Coefficient of Variation 16.5 % (11.5-14.5); Red Blood Count 5.06 M/uL (4.2-5.4); White Blood Count 7.46 K/uL (4.8-10.8)
[2021-01-25 23:21] LABS: Partial Thromboplastin Time 26.2 Seconds (21.0-31.0)
--- NOTE | 2021-01-25 23:22 | Emergency Department Note ---
History of Present Illness General Chief complaint: Urinary Symptoms Stated complaint: UTI Time Seen by Provider: 01/25/21 22:34 History of Present Illness Maximum Pain Intensity: 6 This 70 yo presents to the ER complaining of lower abdominal pain and urinary symptoms today Location: Lower abdomen Quality: Painful Severity: Moderate Duration: Today Timing: Today Context: Patient was concerned and came in Modifying factors: better with nothing; worse with activity Patient denies chest pain, dyspnea, fevers, vomiting, diarrhea, flulike illness. Home Medications Medication Instructions Recorded Confirmed Type albuterol sulfate 90 mcg/actuation 2 puff INHALATION QID PRN 04/27/18 01/07/21 History aerosol inhaler (Ventolin HFA) aripiprazole 2 mg tablet 2 mg PO HS 04/27/18 01/07/21 History ergocalciferol (vitamin D2) 1,250 50,000 units PO TH 04/27/18 01/07/21 History mcg (50,000 unit) capsule famotidine 40 mg tablet 40 mg PO HS 04/27/18 01/07/21 History lamotrigine 100 mg tablet 100 mg PO QAM 04/27/18 01/07/21 History lamotrigine 25 mg tablet 25 mg PO UD 04/27/18 01/07/21 History levothyroxine 88 mcg tablet 88 mcg PO QAM 04/27/18 01/07/21 History nitroglycerin 0.4 mg sublingual 0.4 mg SUBLINGUAL DIRECTED PRN 04/27/18 01/07/21 History tablet (Nitrostat) omeprazole 20 mg capsule,delayed 20 mg PO BID 04/27/18 01/07/21 History release ondansetron HCl 8 mg tablet 8 mg PO Q8H PRN 04/27/18 01/07/21 History torsemide 20 mg tablet 20 mg PO QAM 09/03/18 01/07/21 History montelukast 10 mg tablet 10 mg PO DAILY@1600 06/11/19 01/07/21 History spironolactone 50 mg tablet 50 mg PO BID 09/15/19 01/07/21 History (Aldactone) venlafaxine 75 mg capsule,extended 75 mg PO QAM 09/15/19 01/07/21 History release 24 hr dulaglutide 1.5 mg/0.5 mL 1.5 mg SUBCUT FR 12/22/19 01/07/21 History subcutaneous pen injector (Trulicity) insulin glargine 100 unit/mL (3 15 unit SUBCUT QAM 12/22/19 01/07/21 History mL) subcutaneous pen (Basaglar KwikPen U-100 Insulin) oxybutynin chloride 10 mg 10 mg PO HS 12/22/19 01/07/21 History tablet,extended release 24 hr (Ditropan XL) morphine 15 mg tablet,extended 15 mg PO Q12H 01/16/20 01/07/21 History release aspirin 81 mg tablet,delayed 81 mg PO QAM 03/21/20 01/07/21 History release (Aspir-) metformin 500 mg tablet 1,000 mg PO BID 03/21/20 01/07/21 History metoprolol succinate 50 mg 50 mg PO BID 03/21/20 01/07/21 History tablet,extended release 24 hr rifaximin 550 mg tablet (Xifaxan) 550 mg PO BID 03/21/20 01/07/21 History trazodone 50 mg tablet 150 mg PO HS 03/21/20 01/07/21 History dicyclomine 10 mg capsule 10 mg PO QID PRN 01/07/21 01/07/21 History gabapentin 600 mg tablet 600 mg PO BID 01/07/21 01/07/21 History isosorbide mononitrate 30 mg 30 mg PO QAM 01/07/21 01/07/21 History tablet,extended release 24 hr venlafaxine 150 mg 150 mg PO QAM 01/07/21 01/07/21 History capsule,extended release 24 hr clonazepam 0.5 mg tablet 0.5 mg PO TID #0 tab 01/12/21 01/07/21 Rx Allergies Allergy/AdvReac Type Severity Reaction Status Date / Time propoxyphene Allergy Mild Rash Verified 01/07/21 15:49 fentanyl AdvReac Intermediate PANIC Verified 01/07/21 15:49 WANTS TO RUN AND AGGRESSIVE zolpidem AdvReac Intermediate confusion Verified 01/07/21 15:49 methocarbamol AdvReac Mild DELERIUM Verified 01/07/21 15:49 Past Med/Surg History Medical History (Updated 01/26/21 @ 01:20 by Bell Mccullough PA-C) Anxiety Bipolar disorder CAD (coronary artery disease) History of multiple PCI's to the RCA with subsequent CABG x1 in 2011 x 1 vessel Most recent cardiac testing-negative DSE in December 2017 Follows w/ Dr. Blackwell and Dr. Lucas Bnckuyv-Undel-Qnimq disease follows w/ Dr. Lemus Chronic diastolic CHF (congestive heart failure) Chronic pain syndrome Depression DM type 2 (diabetes mellitus, type 2) IDDM Dyslipidemia Encephalopathy d/c from [facility] 09/20/19 (hepatic encephalopathy) Gastroparesis GERD (gastroesophageal reflux disease) Hypertension Hypothyroidism Irregular heart beat follows Dr. 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 Beliefs That Will Affect Care: None marital status: / Current Living Situation: Alone Feels Safe at Home: Yes Assistive Devices: Walker Review of Systems A total of 10 systems reviewed and were otherwise negative Physical Exam Vital Signs Vital Signs - 24 hr 01/25/21 21:50 01/25/21 21:57 01/25/21 22:30 Temperature 37.0 C Temperature Source Oral Pulse Rate 61 64 Pulse Rate from SpO2 Sensor 60 Pulse Rhythm Regular Pulse Strength Normal Respiratory Rate 20 16 Respiratory Effort / Characteristics Non-Labored Respiratory Depth Normal Blood Pressure 143/76 H 143/76 H Blood Pressure Mean 98 98 Blood Pressure Position Sitting Pulse Oximetry 95 95 93 Oxygen Delivery Method Room Air Room Air Room Air Sepsis Recent Fever Within 48 Hours No Sepsis New/Unexplained Change in Mental Status No Sepsis Action Taken by Nursing No Action Required 01/25/21 22:41 01/25/21 22:50 01/25/21 23:00 Temperature Temperature Source Pulse Rate 59 L 61 Pulse Rate from SpO2 Sensor 61 Pulse Rhythm Pulse Strength Respiratory Rate 18 16 Respiratory Effort / Characteristics Respiratory Depth Blood Pressure 126/61 128/73 Blood Pressure Mean 82 91 Blood Pressure Position Pulse Oximetry 96 96 95 Oxygen Delivery Method Room Air Room Air Sepsis Recent Fever Within 48 Hours Sepsis New/Unexplained Change in Mental Status Sepsis Action Taken by Nursing 01/25/21 23:30 01/26/21 00:11 01/26/21 00:30 Temperature Temperature Source Pulse Rate 60 66 62 Pulse Rate from SpO2 Sensor 60 63 Pulse Rhythm Pulse Strength Respiratory Rate 20 24 19 Respiratory Effort / Characteristics Respiratory Depth Blood Pressure 130/72 125/64 121/68 Blood Pressure Mean 91 84 85 Blood Pressure Position Pulse Oximetry 94 95 94 Oxygen Delivery Method Room Air Room Air Sepsis Recent Fever Within 48 Hours Sepsis New/Unexplained Change in Mental Status Sepsis Action Taken by Nursing VITALS: Vitals are noted on the nurse's note and reviewed by myself. Vital sign s stable. GENERAL: Pleasant elderly female, in no acute distress, nondiaphoretic, well- developed well-nourished. SKIN: The skin was without rashes, erythema, edema, or bruising. There is no tenting of the skin. Capillary reflex less than 2 seconds. HEAD: Normocephalic atraumatic. EARS: External auditory canals clear EYES: Pupils equal round and reactive to light and accommodation. Conjunctivae without injection, sclerae without icterus. Extraocular movements intact. NOSE: Patent, turbinates without inflammation or discharge. MOUTH: Mucous membranes moist. Pharynx without erythema or exudate. Uvula midline. Airway patent. Tongue does not deviate. NECK: Supple without nuchal rigidity. No lymphadenopathy. No thyromegaly. Cervical spine is nontender. No JVD. HEART: Regular rate and rhythm LUNGS: Clear to auscultation bilaterally without wheezes, rales or rhonchi. No retractions or accessory muscle use. ABDOMEN: Positive bowel sounds x 4. Normal tympanic percussion. Soft, tender to palpation lower abdomen, without masses or organomegaly. Stevens sign negative. No guarding or rebound tenderness. No CVA tenderness MUSCULOSKELETAL: No muscle atrophy, erythema, or edema noted. NEURO: Patient was alert and oriented to person place and time. Normal sensation to light and sharp touch. No focal neurological deficits. Course Administered Medications Discontinued Medications Sodium Chloride (Nss) 500 mls @ 999 mls/hr IV .Q31M STA Stop: 01/25/21 23:10 Last Infusion: 01/25/21 23:33 Dose: 0 mls/hr Documented by: [id number] Admin: 01/25/21 22:59 Dose: 999 mls/hr Documented by: [id number] Piperacillin Sod/Tazobactam Sod (Zosyn) 4.5 gm in 120 mls @ 240 mls/hr IV NOW ONE Stop: 01/26/21 01:14 Last Admin: 01/26/21 00:57 Dose: 240 mls/hr Documented by: [id number] Ioversol (Optiray 320 125ml) 125 ml IV ONCE ONE Stop: 01/26/21 00:03 Last Admin: 01/26/21 00:02 Dose: 119 ml Documented by: [id number] Medical Decision Making Medical Records Attestation: I reviewed the patient's medical records. Home Medications Current Medication List: was personally reviewed by me Laboratory Data Attestation: I reviewed the patient's lab results. Result diagrams: 01/25/21 22:57 01/25/21 22:57 Lab Results 01/25/21 01/25/21 01/25/21 Range/Units 22:57 22:57 22:57 WBC 7.46 (4.8-10.8) K/uL RBC 5.06 (4.2-5.4) M/uL Hgb 12.2 (12.0-16.0) g/dL Hct 38.2 (37-47) % MCV 75.5 L (80-100) fL MCH 24.1 L (25-34) pg MCHC 31.9 L (32-36) g/dL RDW Std Deviation 45.0 (36.4-46.3) fL RDW Coeff of Guillermo 16.5 H (11.5-14.5) % Plt Count 148 (130-400) K/uL MPV 10.1 (7.4-10.4) fL Immature Gran % (Auto) 0.4 % Neut % (Auto) 56.5 % Lymph % (Auto) 29.0 % [place] % (Auto) 9.8 % Eos % (Auto) 3.8 % Baso % (Auto) 0.5 % Neut # (Auto) 4.22 (1.4-6.5) K/uL Lymph # (Auto) 2.16 (1.2-3.4) K/uL [place] # (Auto) 0.73 H (0.11-0.59) K/uL Eos # (Auto) 0.28 (0-0.5) K/uL Baso # (Auto) 0.04 (0-0.2) K/uL Immature Gran # (Auto) 0.03 H (0.00-0.02) K/uL APTT 26.2 (21.0-31.0) Seconds PTT Ratio 1.0 Sodium 134 L (136-145) mmol/L Potassium 3.8 (3.5-5.1) mmol/L Chloride 101 (98-107) mmol/L Carbon Dioxide 27 (21-32) mmol/L Anion Gap 6.0 (3-11) BUN 12 (7-18) mg/dl Creatinine 1.19 (0.6-1.2) mg/dl Est Cr Clr Drug Dosing Not Reportable Est GFR ( Amer) 53.2 ml/min Est GFR (Non-Af Amer) 45.9 ml/min BUN/Creatinine Ratio 10.0 (10-20) Glucose 214 H (70-99) mg/dl Calcium 8.9 (8.5-10.1) mg/dl Total Bilirubin 0.4 (0.2-1) mg/dl AST 24 (15-37) U/L ALT 24 (12-78) U/L Alkaline Phosphatase 123 H (45-117) U/L Troponin I < 0.015 (0-0.045) ng/ml Total Protein 7.5 (6.4-8.2) gm/dl Albumin 3.5 (3.4-5.0) gm/dl Globulin 4.0 (2.5-4.0) gm/dl Albumin/Globulin Ratio 0.9 (0.9-2) Lipase 230 (73-393) U/L Urine Color Urine Appearance (Clear) Urine pH (4.5-7.5) Ur Specific [place] (1.000-1.030) Urine Protein (Negative) Urine Glucose (UA) (Negative) Urine Ketones (Negative) Urine Blood (Negative) Urine Nitrite (Negative) Urine Bilirubin (Negative) Urine Urobilinogen (Negative) Ur Leukocyte Esterase (Negative) Urine WBC (Auto) (0-5) /hpf Urine RBC (Auto) (0-4) /hpf U Hyaline Cast (Auto) (0-5) /lpf U Epithel Cells (Auto) (0-5) /lpf Urine Bacteria (Auto) (Negative) Ur Renal Epithelial Cell Urine Yeast (None Prsent) 01/26/21 Range/Units 00:11 WBC (4.8-10.8) K/uL RBC (4.2-5.4) M/uL Hgb (12.0-16.0) g/dL Hct (37-47) % MCV (80-100) fL MCH (25-34) pg MCHC (32-36) g/dL RDW Std Deviation (36.4-46.3) fL RDW Coeff of Guillermo (11.5-14.5) % Plt Count (130-400) K/uL MPV (7.4-10.4) fL Immature Gran % (Auto) % Neut % (Auto) % Lymph % (Auto) % [place] % (Auto) % Eos % (Auto) % Baso % (Auto) % Neut # (Auto) (1.4-6.5) K/uL Lymph # (Auto) (1.2-3.4) K/uL [place] # (Auto) (0.11-0.59) K/uL Eos # (Auto) (0-0.5) K/uL Baso # (Auto) (0-0.2) K/uL Immature Gran # (Auto) (0.00-0.02) K/uL APTT (21.0-31.0) Seconds PTT Ratio Sodium (136-145) mmol/L Potassium (3.5-5.1) mmol/L Chloride (98-107) mmol/L Carbon Dioxide (21-32) mmol/L Anion Gap (3-11) BUN (7-18) mg/dl Creatinine (0.6-1.2) mg/dl Est Cr Clr Drug Dosing Est GFR ( Amer) ml/min Est GFR (Non-Af Amer) ml/min BUN/Creatinine Ratio (10-20) Glucose (70-99) mg/dl Calcium (8.5-10.1) mg/dl Total Bilirubin (0.2-1) mg/dl AST (15-37) U/L ALT (12-78) U/L Alkaline Phosphatase (45-117) U/L Troponin I (0-0.045) ng/ml Total Protein (6.4-8.2) gm/dl Albumin (3.4-5.0) gm/dl Globulin (2.5-4.0) gm/dl Albumin/Globulin Ratio (0.9-2) Lipase (73-393) U/L Urine Color Yellow Urine Appearance Cloudy A (Clear) Urine pH 6.5 (4.5-7.5) Ur Specific [place] 1.011 (1.000-1.030) Urine Protein Negative (Negative) Urine Glucose (UA) Negative (Negative) Urine Ketones Negative (Negative) Urine Blood Trace H (Negative) Urine Nitrite Negative (Negative) Urine Bilirubin Negative (Negative) Urine Urobilinogen Negative (Negative) Ur Leukocyte Esterase 3+ H (Negative) Urine WBC (Auto) >30 H (0-5) /hpf Urine RBC (Auto) 0-4 (0-4) /hpf U Hyaline Cast (Auto) 1-5 (0-5) /lpf U Epithel Cells (Auto) >30 H (0-5) /lpf Urine Bacteria (Auto) Negative (Negative) Ur Renal Epithelial Cell Not Reportable Urine Yeast Budding A (None Prsent) Imaging Data Attestation: I personally reviewed and interpreted this imaging study as follows: MDM Narrative Prior records/ancillary studies reviewed. Triage Nursing notes reviewed. Additional history obtained from nursing. The patient's history was concerning for abdominal pain. Differential diagnosis: Etiologies such as appendicitis, diverticulitis, PUD, biliary pathology, UTI, pancreatitis, obstruction, mesenteric ischemia, aortic pathology, infections, inflammatory bowel disease, renal colic, as well as others were entertained. Physical examination findings: As above. ER treatment provided: An order was placed for continuous cardiac monitoring. The monitor shows a rate of 60-1 10 with a sinus rhythm. IV fluids On reassessment the patient felt better. Diagnostics interpreted by me: ECG: Ordered for abdominal pain EKG: Normal sinus, poor baseline, no acute ST-T wave changes. Impression normal sinus interpreted by myself I think arrhythmia is unlikely. EKG shows normal sinus rhythm with no interval abnormalities such as QT prolongation or WPW. There are no findings to suggest Brugada syndrome. Cardiac monitoring in the emergency department reveals no tachycardic or bradycardic dysrhythmia. Hypertrophic cardiomyopathy was considered but there are no clear historical elements pointing toward this. EKG is not suggestive. The QRS voltage is not extremely large and there are no suggestive Q waves. The labs revealed urine concerning for infection and sent for culture. Prior culture reviewed. No leukocytosis., Hyperglycemia thought DKA [address] [address] / Director: Ivan Almendarez M.D. Clinical Laboratory Report Name: GILES SLOAN Acct: [id number] Status: DIS IN : 1950 [facility] Date: 01/07/21 Age: 70 Sex: F Dis Date: 01/12/21 Loc: Medical/Surgical/Ortho [address] [place] [address]/Bed: [facility] Spec: [id number] Collected: 01/07/21 Received: 01/07/21-[address]: Jesus Rosales MD Source: Urine,Indwelling Cath OV Order: Ordered: Urine Culture Procedure Result Verified Site Urine Culture Final 01/15/21-1438 Organism 1 Enterococcus faecalis [place] Count >100,000 CFU/ml Sens Sensitivities to Follow E faecalis RX M.I.C. --- --------- Ampicillin S <=2 Ciprofloxacin S <=1 Daptomycin S 4 Gent Synergy S <=500 Levofloxacin S <=1 Nitrofurantoin S <=32 Penicillin S 8 Strep Synergy S <=1000 Tetracycline R >8 Vancomycin S 2 Enterococcus faecalis: Positive Combo 33 Streptomycin Synergy Screen S Gentamicin Synergy Screen S S = SENSITIVE I = INTERMEDIATE R = RESISTANT Imaging studies: Michael @ [phone] Exams: CTA ABDOMEN & PELVIS With Contrast Contrast: IV Amt: 119 ML OPTIRAY 320 Accession Numbers: [id number] Referring Physician: REFERRED SELF Preliminary Findings Only See Final Report For Complete Findings CTA ABDOMEN & PELVIS With Contrast: Comparison made with prior study from September 15, 2019 Liver appears normal. Spleen is mildly enlarged measuring 14.4 cm in length. This is stable from the previous study. Pancreas appears normal. Gallbladder is surgically absent. The stomach, small and large bowel appear normal. The appendix is not specifically visualized. The adrenals kidneys and ureters appear normal. There is some bladder wall thickening and trabeculation. The uterus is not visualized. Abdominal aorta and branches are normal. There is no free peritoneal air or fluid. Impression: Mild splenomegaly stable from prior study. Mild thickening of the bladder wall may reflect a urinary tract infection. Correlation with urinalysis recommended Radiologist: Sarabjit Hansen MD Chest x-ray with no acute consolidation, pneumothorax or free air per my interpretation. Similar to prior. Consultation: A consultation was placed with the hospitalist. The case was discussed and diagnostics were reviewed. The patient was evaluated in the ER for further treatment. Exam and history seem consistent with UTI with abdominal pain weakness and hyperglycemia. Patient was given antibiotics. Prior urine culture was reviewed. She is requesting admission. Medicine was consulted. By the evaluation outlined above emergent etiologies such as appendicitis, diverticulitis, PUD, biliary pathology, pancreatitis, obstruction, mesenteric ischemia, aortic pathology, inflammatory bowel disease, renal colic, as well as others were deemed relatively unlikely. The pt informed about the findings as listed above. All questions were answered and pleased with the treatment. The chart was completed utilizing [employer] Speech voice recognition software. Grammatical errors, random word insertions, pronoun errors, and incomplete sentences are an occassional consequence of this system due to software limit ations, ambient noise, and hardware issues. Any formal questions or concerns about the content, text, or information contained within the body of this dictation should be directly addressed to the physician integration assistant for clarification. Impression & Plan Acute UTI, Abdominal pain Discharge Plan Visit Data Chief Complaint: Urinary Symptoms Stated Complaint: UTI ED Provider: Radha Ruggiero ED Midlevel Provider: Bell Mccullough Discharge Problem: Acute UTI, Abdominal pain Patient Disposition: Admitted As Inpatient Condition: Fair Forms Stand Alone Forms: [facility] [employer] Prescriptions Prescriptions: No Action ondansetron HCl 8 mg tablet 8 mg PO Q8H PRN (Reason: Nausea) RF: 0 famotidine 40 mg tablet 40 mg PO HS RF: 0 lamotrigine 25 mg tablet 25 mg PO UD RF: 0 levothyroxine 88 mcg tablet 88 mcg PO QAM RF: 0 omeprazole 20 mg capsule,delayed release(DR/EC) 20 mg PO BID RF: 0 lamotrigine 100 mg tablet 100 mg PO QAM RF: 0 aripiprazole 2 mg tablet 2 mg PO HS RF: 0 nitroglycerin [Nitrostat] 0.4 mg Tablet, Sublingual 0.4 mg Sublingual DIRECTED PRN (Reason: Chest Pain) RF: 0 ergocalciferol (vitamin D2) 50,000 unit Capsule 50,000 units PO TH RF: 0 albuterol sulfate [Ventolin HFA] 90 mcg/actuation Hfa Aerosol Inhaler 2 puff INHALATION QID PRN (Reason: Shortness Of Breath Or Wheezing) RF: 0 morphine 15 mg Tablet Extended Release 15 mg PO Q12H RF: 0 torsemide 20 mg tablet 20 mg PO QAM RF: 0 montelukast 10 mg Tablet 10 mg PO DAILY@1600 RF: 0 Basaglar KwikPen U-100 Insulin 100 unit/mL (3 mL) Insulin Pen 15 unit SUBCUT QAM RF: 0 Trulicity 1.5 mg/0.5 mL Pen Injector 1.5 mg SUBCUT FR RF: 0 oxybutynin chloride [Ditropan XL] 10 mg Tablet Extended Release 24hr 10 mg PO HS RF: 0 spironolactone [Aldactone] 50 mg tablet 50 mg PO BID RF: 0 venlafaxine 75 mg capsule,extended release 24hr 75 mg PO QAM RF: 0 trazodone 50 mg Tablet 150 mg PO HS RF: 0 metoprolol succinate 50 mg Tablet Extended Release 24 Hr 50 mg PO BID RF: 0 metformin 500 mg tablet 1,000 mg PO BID RF: 0 Xifaxan 550 mg Tablet 550 mg PO BID RF: 0 aspirin [Aspir-81] 81 mg Tablet,Delayed Release (Dr/Ec) 81 mg PO QAM RF: 0 isosorbide mononitrate 30 mg tablet extended release 24 hr 30 mg PO QAM RF: 0 venlafaxine 150 mg capsule,extended release 24hr 150 mg PO QAM RF: 0 dicyclomine 10 mg Capsule 10 mg PO QID PRN (Reason: ibs) RF: 0 gabapentin 600 mg tablet 600 mg PO BID RF: 0 clonazepam 0.5 mg tablet 0.5 mg PO TID Qty: 0 RF: 0 Referrals Referrals: Brian Domínguez MD [Primary Care Provider] -
[2021-01-25 23:30] LABS: Alanine Aminotransferase 24 U/L (12-78); Albumin Level 3.5 gm/dl (3.4-5.0); Aspartate Aminotransferase 24 U/L (15-37); Blood Urea Nitrogen 12 mg/dl (7-18); Calcium 8.9 mg/dl (8.5-10.1); Carbon Dioxide 27 mmol/L (21-32); Chloride 101 mmol/L (98-107); Est GFR (African American) 53.2 ml/min; Est GFR (Non-African American) 45.9 ml/min; Glucose 214 mg/dl (70-99); Lipase 230 U/L (73-393); Potassium 3.8 mmol/L (3.5-5.1); Sodium 134 mmol/L (136-145)
[2021-01-25 23:35] LABS: Albumin Globulin Ratio 0.9 (0.9-2); Alkaline Phosphatase 123 U/L (45-117); Bilirubin,Total 0.4 mg/dl (0.2-1); Total Protein 7.5 gm/dl (6.4-8.2); Troponin I < 0.015 ng/ml (0-0.045)
[2021-01-26] MEDS ORDERED: OPTIRAY 320 125ml IV ONE (00:02)
[2021-01-26 00:21] LABS: Appearance Urine Cloudy (Clear); Bacteria Urine Automated Negative (Negative); Bilirubin Urine Negative (Negative); Blood Urine Trace (Negative); Color Urine Yellow; Epithelial Cell Urine Auto >30 /lpf (0-5); Glucose Urine UA Negative (Negative); Ketones Urine Negative (Negative); Leukocyte Esterase Urine 3+ (Negative); Nitrite Urine Negative (Negative); Protein Urine Negative (Negative); RBC Urine Automated 0-4 /hpf (0-4); Specific Gravity Urine 1.011 (1.000-1.030); Urobilinogen Urine Negative (Negative); WBC Urine Automated >30 /hpf (0-5); pH Urine 6.5 (4.5-7.5)
[2021-01-26] MEDS ORDERED: PIPERACILL/TAZOBAC CONSULT ACTIVE PRN (00:45)
[2021-01-26] MEDS ORDERED: PIPERACILLIN/TAZOBACTAM 4.5 GM/120 ML BAG IV ONE (00:45)
--- NOTE | 2021-01-26 01:02 | Emergency Department Note ---
ED Visit Note I have personally seen and evaluated the patient with the PA. I agree with the diagnosis and management decisions and have been personally involved in the case. Patient received IV Zosyn and IV hydration for positive UA. Patient was discussed with the hospitalist for further management as she is unsteady on her feet, lives at home alone and uses a walker. Please see Syeda Mccullough PA-C's notes for further details of the history, physical and visit. .
[2021-01-26] MEDS ORDERED: ALBUTEROL HFA 8 GM INHALER INH PRN (03:36)
[2021-01-26] MEDS ORDERED: NITROGLYCERIN SL 0.4 MG/TAB TAB SL PRN (03:36)
[2021-01-26] MEDS ORDERED: oxyCODONE HCL IR 5 MG TAB (IMMEDIATE RELEASE) PO PRN (03:36)
--- NOTE | 2021-01-26 03:39 | History and Physical Report ---
DATE OF ADMISSION: 01/26/2021. CHIEF COMPLAINT: Abdominal discomfort. HISTORY OF PRESENT ILLNESS: This is a 70-year-old female with past medical history significant for type 2 diabetes, liver cirrhosis, history of hepatic encephalopathy, hypothyroidism, diabetic gastroparesis, hypertension, chronic diastolic CHF, CAD status post stent, moderate aortic stenosis, liver cirrhosis, portal hypertensive gastropathy, GERD, narcotic bowel syndrome, fatty liver, urinary incontinence Qwpfjzd-Ddjcm-Zpxxo disease, peroneal muscle atrophy, history of thrombocytopenia, bipolar 1 disorder. The patient lives alone at home and she has caregivers at home, on regular diet. Presents because the patient states she was confused and having abdominal discomfort and found to have a UTI. The patient has some headache. Denies any blurred visions. Complains of some ear pain in the right ear. No runny nose, no sore throat, no cough, no fevers, no chest pain, no shortness of breath, no nausea, no abdominal pain. Says she was not able to micturate at home and she has to straight cath in the ER. Denies any hematuria. Bowels are moving okay and she denies any blood in stools or black stools. No swelling in the legs, no rash. Currently, resting comfortably and hemodynamically stable. ALLERGIES: PROPOXYPHENE, FENTANYL, ZOLPIDEM, METHOCARBAMOL. PAST MEDICAL HISTORY: As mentioned above. PAST SURGICAL HISTORY: Left heart catheterization, status post stent placement, right knee arthroplasty, CABG, colonoscopy, EGD, EGD with endoscopic ultrasound, appendectomy, cholecystectomy, total abdominal hysterectomy with removal of tubes. MEDICATIONS: The patient is on albuterol 2 puffs inhalation q.i.d. p.r.n., aripiprazole 2 mg p.o. at bedtime, aspirin 81 mg p.o. daily, atorvastatin 80 mg p.o. daily, Basaglar insulin 15 units subcutaneous a.m., Klonopin 0.5 mg p.o. t.i.d., Trulicity 3 mg subcutaneous weekly, vitamin D 50,000 units p.o. weekly, famotidine 40 mg p.o. at bedtime, Flonase 2 sprays intranasal daily p.r.n., fosfomycin 3 g p.o. q. 3 days, gabapentin 600 mg p.o. b.i.d., isosorbide mononitrate 30 mg p.o. a.m., lactulose 45 g p.o. b.i.d., Lamictal 100 mg a.m. and 25 mg as directed, levothyroxine 88 mcg in a.m., metformin 1000 mg p.o. b.i.d., metoprolol succinate 50 mg p.o. b.i.d., montelukast 10 mg p.o. daily, morphine sulfate extended release 15 mg p.o. b.i.d., nitroglycerin 0.4 mg sublingual p.r.n., nystatin topical b.i.d. p.r.n., Zofran 8 mg p.o. 8 hours p.r.n., Ditropan XL 10 mg p.o. at bedtime, oxycodone 5 mg p.o. q. 8 hours p.r.n., Protonix 40 mg p.o. daily, spironolactone 50 mg p.o. b.i.d., torsemide 20 mg p.o. b.i.d., trazodone 100 mg p.o. at bedtime, venlafaxine 225 mg p.o. a.m., Xifaxan 550 mg p.o. b.i.d. FAMILY HISTORY: Significant for brother has CABG; father has ID; mother has angina. SOCIAL HISTORY: Lives alone, has caregivers. Daughter lives close by. No smoking, no alcohol, no drug use. REVIEW OF SYSTEMS: As per HPI. Rest of the review of systems are negative. PHYSICAL EXAMINATION: GENERAL: The patient is of moderate build, not in acute distress. VITAL SIGNS: Temperature 37, pulse 62, respiratory rate 19, blood pressure 121/68, oxygen 94% on room air. HEENT: Pupils equal, round and reactive to light. Oral mucosa dry. NECK: No JVD, no neck masses. CARDIOVASCULAR: S1 and S2 heard. Regular rate and rhythm. No murmur, no gallop. RESPIRATORY SYSTEM: Normal AP diameter. No accessory muscle use. No wheezing, no crackles. ABDOMEN: Soft, bowel sounds present. Mild diffuse discomfort, no guarding, no rigidity. No CVA tenderness. CENTRAL NERVOUS SYSTEM: Cranial nerves II-XII grossly intact, nonfocal. EXTREMITIES: No edema, no erythema. LABORATORY DATA: WBC 7.4, hemoglobin 12.2, hematocrit 38.2, platelets 148. APTT 26.2, PTT 1. Sodium 134, potassium 3.8, chloride 101, bicarbonate 27, BUN 12, creatinine 1.1, serum glucose 214, calcium 8.9, total bilirubin 0.4, AST 24, ALT 24, alkaline phosphatase 123. Troponin I less than 0.015. Lipase 230. Urinalysis +3 leukocyte esterase. IMAGING DATA: Chest x-ray, no acute findings. CT abdomen and pelvis, preliminary report, no acute findings. EKG: Normal sinus rhythm, rate of 60, no significant change was found. ASSESSMENT AND PLAN: This is a 70-year-old female who presents with abdominal discomfort and found to have urinary tract infection. 1. Abdominal discomfort and urinary tract infection: The patient history of recurrent urinary tract infections. Will follow the culture. ER started on Zosyn, which we will continue. Monitor in the medical floor. 2. History of diabetes: Continue with home basaglar insulin. Hold metformin, Trulicity, and placed on insulin sliding scale. Follow the blood sugars. 3. Chronic kidney disease stage III: Presents with creatinine of 1.1. We will follow the labs. 4. Chronic diastolic congestive heart failure: Continue her home diuretics 5. Hypertension: Continue her diuretics and metoprolol. We will monitor her blood pressure. 6. Urinary retention and urinary incontinence: The patient says she is not able to pee at home. Will monitor the bladder scans. If significant urinary retention, will consult urology. 7. GONZALEZ liver cirrhosis: Continue her home diuretics and Xifaxan and lactulose. 8. History of hypothyroidism: Continue Synthroid. 9. History of bipolar disorder and anxiety: Continue her Lamictal, Abilify, Klonopin and trazodone. 10. History of chronic pain syndrome: Continue her home morphine ER 15 mg b.i.d. and oxycodone as needed. 11. Deep venous thrombosis prophylaxis: Placed on heparin subcu. DISPOSITION: Admit to medical floor. PT/OT prior to discharge. Social service to help with discharge planning. Level 1 full code. Job ID: [id number] [facility]
[2021-01-26] MEDS ORDERED: ONDANSETRON 8MG OD TAB PO PRN (04:17)
[2021-01-26] MEDS ORDERED: PIPERACILLIN/TAZOBACTAM 3.375 GM in DEXTROSE 5% 100 ML IV SCH (06:00)
[2021-01-26] MEDS: MoRPHine SULFATE CR 15 MG TABCR PO SCH ×2 (06:15→18:33)
[2021-01-26] MEDS: LEVOTHYROXINE SODIUM 88 MCG TABLET PO SCH (06:15)
--- NOTE | 2021-01-26 06:56 | XRay Report ---
XR chest 1V portable CLINICAL HISTORY: Atypical chest pain COMPARISON STUDY: 01/07/2021 FINDINGS: There are postsurgical changes of midline sternotomy. There is no failure. There is no foca l pulmonary consolidation. There are no pleural effusions. There is mild elevation of the right hemid iaphragm.[ IMPRESSION: No active disease in the chest. ACT 112: Negative or not required by law. Electronically signed by: Devang Wood M.D. 01/26/2021 6:55 AM
--- NOTE | 2021-01-26 07:37 | CT Scan Report ---
CT ANGIOGRAPHY OF THE ABDOMEN AND PELVIS CLINICAL HISTORY: Lower abdominal pain. COMPARISON STUDY: CTA of the abdomen and pelvis December 04, 2017. CT of the abdomen and pelvis September 15, 2019. TECHNIQUE: Helical axial images of the abdomen and pelvis were obtained during arterial phase followi ng intravenous injection of 119 cc Optiray 320 IV. Sagittal and coronal reconstructions were viewed a s well as maximal intensity projections on an independent 3-D workstation. Automated exposure control was utilized for the study. A dose lowering technique was utilized adhering to the principles of [place]. FINDINGS: Lung bases are unremarkable. Moderate splenomegaly is unchanged. No pneumatosis, free air o r portal venous gas is present. Mild biliary ductal dilatation is unchanged and likely related to cho lecystectomy. Acute phase images of liver, adrenal glands, kidneys and pancreas are unremarkable. Is no peripancreatic infiltration. There is no hydronephrosis. There is no evidence for a bowel obstruct ion. A moderate amount stool within the colon is noted. The appendix is not visualized. Bladder is di stended. Bladder wall thickening is noted. This may be chronic. The caliber of the abdominal aorta is normal. The celiac axis is patent. There is mild plaque within the abdominal aorta and branch vessels. 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 This was shown on prior CTA. The yasmine l arteries are patent. Inferior mesenteric artery is patent. Bilateral common iliac, external iliac a nd common femoral arteries are patent. IMPRESSION: 1. Normal caliber abdominal aorta. No abdominal aortic dissection. 2. 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 This finding will be called/faxed to the ordering provider at time of di ctation. 3. No acute process within the abdomen or pelvis. 2. Stable splenomegaly. 5. Moderate amount stool within the colon. 6. Bladder wall thickening, likely chronic. ACT 112: Negative or not required by law. Electronically signed by: Mu Bonds M.D. 01/26/2021 7:36 AM
[2021-01-26 08:10] LABS: Basophils # (auto) 0.03 K/uL (0-0.2); Basophils % (auto) 0.5 %; Eosinophils % (auto) 3.3 %; Hematocrit (blood only) 36.5 % (37-47); Hemoglobin 11.2 g/dL (12.0-16.0); Immature Granulocytes # (auto) 0.02 K/uL (0.00-0.02); Immature Granulocytes % (auto) 0.3 %; Lymphocytes # (auto) 1.06 K/uL (1.2-3.4); Lymphocytes % (auto) 17.4 %; Mean Corpuscular Hemoglobin 23.4 pg (25-34); Mean Corpuscular Hgb Conc 30.7 g/dL (32-36); Mean Corpuscular Volume 76.2 fL (80-100); Mean Platelet Volume 9.7 fL (7.4-10.4); Monocytes # (auto) 0.54 K/uL (0.11-0.59); Monocytes % (auto) 8.9 %; Neutrophils # (auto) 4.25 K/uL (1.4-6.5); Neutrophils % (auto) 69.6 %; Platelet Count 132 K/uL (130-400); RDW Coefficient of Variation 16.7 % (11.5-14.5); RDW Standard Deviation 46.2 fL (36.4-46.3); Red Blood Count 4.79 M/uL (4.2-5.4)
[2021-01-26 08:48] LABS: BUN Creatinine Ratio 10.9 (10-20); Calcium 9.2 mg/dl (8.5-10.1); Creatinine Clr Calc Pharmacy 60.4 ml/min; Est GFR (African American) 60.5 ml/min; Est GFR (Non-African American) 52.2 ml/min; Potassium 3.9 mmol/L (3.5-5.1)
[2021-01-26] MEDS ORDERED: LACTULOSE SYRUP 10 GM/15 ML BTL 960 ML PO SCH (09:00)
[2021-01-26] MEDS: TORSEMIDE 20 MG TAB PO SCH ×2 (09:00→21:30)
[2021-01-26] MEDS: ISOSORBIDE MONO EXTENDED REL 30 MG TABCR PO SCH (09:00)
[2021-01-26] MEDS: GABAPENTIN 600 MG TAB PO SCH ×2 (09:00→21:24)
[2021-01-26] MEDS: PANTOprazole 40 MG TAB PO SCH (09:00)
[2021-01-26] MEDS: ASPIRIN 81 MG ECTAB PO SCH (09:00)
[2021-01-26] MEDS: rifAXIMin 550 MG TABLET PO SCH ×2 (09:00→21:29)
[2021-01-26] MEDS: SPIRONOLACTONE 25 MG TAB PO SCH ×2 (09:00→21:29)
[2021-01-26] MEDS: METOPROLOL SUCC 50MG EXT REL TAB PO SCH ×2 (09:00→21:26)
[2021-01-26] MEDS: VENLAFAXINE HCL XR 75 MG CAPXR PO SCH (09:01)
[2021-01-26] MEDS: ATORVASTATIN 40 MG TAB PO SCH (09:01)
[2021-01-26] MEDS: VENLAFAXINE HCL XR 150 MG CAPXR PO SCH (09:01)
[2021-01-26] MEDS: lamoTRIgine 25 MG TAB PO SCH (09:01)
[2021-01-26] MEDS: lamoTRIgine 100 MG TAB PO SCH (09:01)
[2021-01-26] MEDS: FLUTICASONE PROPIONATE NA SPR 16 GM BTL SCH (09:02)
[2021-01-26] MEDS: LACTULOSE SYRUP 10 GM/15 ML BTL 960 ML PO SCH ×2 (09:02→21:23)
[2021-01-26] MEDS: clonazePAM 0.5 MG TAB PO SCH ×3 (09:07→21:24)
--- NOTE | 2021-01-26 09:10 | Electrocardiogram Report ---
Test Reason : Blood Pressure : / mmHG Vent. Rate : 060 BPM Atrial Rate : 060 BPM P-R Int : 186 ms QRS Dur : 100 ms QT Int : 434 ms P-R-T Axes : 034 -29 078 degrees QTc Int : 434 ms Normal sinus rhythm Poor R wave progression, consider anterior HI vs. lead placement vs. LVH Abnormal ECG When compared with ECG of 07-JAN-2021 11:59, No significant change was found Confirmed by Ramon Mccarthy ([id number]) on 01/26/2021 9:10:06 AM Referred By: REFERRED SELF Confirmed By:Ramon Mccarthy
[2021-01-26] MEDS: INSULIN GLARGINE SOLOSTAR 100 UNITS/ML 3 ML PEN SQ SCH (09:15)
[2021-01-26] MEDS: INSULIN ASPART 100 UNITS/ML 3 ML PEN SC SCH ×4 (09:15→21:31)
[2021-01-26] MEDS: HEPARIN SOD 5,000 UNIT/0.5 ML VIAL SQ SCH ×2 (09:18→21:24)
[2021-01-26] MEDS: NYSTATIN CR 15 GM TUBE EXT SCH ×2 (09:57→21:25)
--- NOTE | 2021-01-26 14:15 | Hospitalist Progress Note ---
Date of Service January 26, 2021 Assessment & Plan (1) Altered mental status: Plan: On admission patient was presented with confusion, forgetfulness, disorientation Mental status improved to baseline Metabolic encephalopathy in the setting of UTI. 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 This finding will be called/faxed to the ordering provider at time of dictation. Patient reports postprandial pain, poor appetite, fearful of eating full meal as it causes severe pain, bloating. Vascular surgery consulted for recommendation History of [place], chronic liver disease. Stable, no evidence of hyperammonemia LFTs within normal limit, continue outpatient meds Disposition: Expected to be discharged home in next 24 hours if remains medically stable. Admission and Anticipated Discharge Date Admission Date: January 26, 2021 Subjective Follow-up visit for confusion/urine tract infection: Sitting up in chair, comfortable to her baseline mental status conversing appropriately Days she feels fine, wondering when she can be able to return home No fever or chills, does not have any urinary symptoms Does report that she had increased urgency frequency for past several days, was very forgetful in the morning Does not have any nausea vomiting, no diarrhea Patient reports poor appetite, abdominal bloating/pain and discomfort after each meal which has been going on for months. No weight loss No complaint of cough no chest pain no shortness of breath no dizzy spell or lightheadedness Review of Systems Review of Systems: All systems reviewed & are unremarkable except as noted in Subjective Physical Exam Constitutional: WD/WN, vitals as above + obese; no acute distress Neck: trachea midline, no thyromegaly Respiratory: normal respiratory effort, lungs clear to auscultation Gastrointestinal (Abdomen): Inspection/Auscultation: + abdomen distended and normal bowel sounds Percussion/Palpation: abdomen soft; abdomen nontender Musculoskeletal: Extremities: extremities normal to inspection and strength 5/5 throughout Neurologic: PERRL, EOMI, accommodation nl, no face palsy, no dysarthria Psychiatric: A+Ox3, euthymic affect Results & Data Results & Data ([facility]) Vital Signs (Past 12 Hours) Vital Signs Temp Pulse Pulse Resp BP BP Pulse Ox 01/26/21 07:00 36.8 C 61 20 142/84 H 96 01/26/21 03:47 36.9 C 68 18 147/78 H 94 01/26/21 03:00 58 L 17 138/70 96 01/26/21 02:30 60 22 129/67 95 (1) UTI (urinary tract infection) Hematuria presence: without hematuria Urinary tract infection type: site unspecified Qualified Code(s): N39.0 - Urinary tract infection, site not specified
[2021-01-26] MEDS ORDERED: MONTELUKAST SODIUM 10 MG TABLET PO SCH (16:00)
[2021-01-26] MEDS: AMPICILLIN 500 MG in SODIUM CHLORIDE 0.9% 50 ML IV SCH ×2 (17:40→21:42)
[2021-01-26] MEDS ORDERED: traZODone HCL 100 MG TAB PO SCH (21:00)
[2021-01-26] MEDS ORDERED: OXYBUTYNIN CHLORIDE XL 5 MG TABCR PO SCH (21:00)
[2021-01-26] MEDS ORDERED: ARIPIprazole 1 MG/ML ORAL SOLN 150 ML BTL PO SCH (21:00)
[2021-01-26] MEDS ORDERED: FAMOTIDINE 40 MG TABLET PO SCH (21:00)
[2021-01-26] MEDS ORDERED: lamoTRIgine 25 MG TAB PO SCH (21:00)
[2021-01-27] MEDS: AMPICILLIN 500 MG in SODIUM CHLORIDE 0.9% 50 ML IV SCH ×2 (03:35→10:00)
[2021-01-27] MEDS: MoRPHine SULFATE CR 15 MG TABCR PO SCH (05:53)
[2021-01-27] MEDS: LEVOTHYROXINE SODIUM 88 MCG TABLET PO SCH (05:53)
[2021-01-27] MEDS ORDERED: ERGOCALCIFEROL 50,000 UNITS 1250 MCG CAP PO SCH (09:00)
[2021-01-27] MEDS: clonazePAM 0.5 MG TAB PO SCH (09:49)
[2021-01-27] MEDS: TORSEMIDE 20 MG TAB PO SCH (09:49)
[2021-01-27] MEDS: VENLAFAXINE HCL XR 75 MG CAPXR PO SCH (09:49)
[2021-01-27] MEDS: VENLAFAXINE HCL XR 150 MG CAPXR PO SCH (09:49)
[2021-01-27] MEDS: rifAXIMin 550 MG TABLET PO SCH (09:50)
[2021-01-27] MEDS: GABAPENTIN 600 MG TAB PO SCH (09:50)
[2021-01-27] MEDS: ATORVASTATIN 40 MG TAB PO SCH (09:50)
[2021-01-27] MEDS: lamoTRIgine 100 MG TAB PO SCH (09:50)
[2021-01-27] MEDS: lamoTRIgine 25 MG TAB PO SCH (09:50)
[2021-01-27] MEDS: PANTOprazole 40 MG TAB PO SCH (09:50)
[2021-01-27] MEDS: ISOSORBIDE MONO EXTENDED REL 30 MG TABCR PO SCH (09:50)
[2021-01-27] MEDS: SPIRONOLACTONE 25 MG TAB PO SCH (09:50)
[2021-01-27] MEDS: METOPROLOL SUCC 50MG EXT REL TAB PO SCH (09:50)
[2021-01-27] MEDS: ASPIRIN 81 MG ECTAB PO SCH (09:50)
[2021-01-27] MEDS: HEPARIN SOD 5,000 UNIT/0.5 ML VIAL SQ SCH (09:51)
[2021-01-27] MEDS: INSULIN GLARGINE SOLOSTAR 100 UNITS/ML 3 ML PEN SQ SCH (09:51)
[2021-01-27] MEDS: NYSTATIN CR 15 GM TUBE EXT SCH (09:53)
[2021-01-27] MEDS: FLUTICASONE PROPIONATE NA SPR 16 GM BTL SCH (09:53)
[2021-01-27] MEDS: LACTULOSE SYRUP 10 GM/15 ML BTL 960 ML PO SCH (09:54)
[2021-01-27] MEDS: INSULIN ASPART 100 UNITS/ML 3 ML PEN SC SCH (10:17)
--- NOTE | 2021-01-27 10:48 | Hospitalist Progress Note ---
Date of Service January 27, 2021 Assessment & Plan (1) Altered mental status: Plan: On admission patient was presented with confusion, forgetfulness, disorientation Mental status improved to baseline Metabolic encephalopathy in the setting of UTI. 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 This finding will be called/faxed to the ordering provider at time of dictation. Patient reports postprandial pain, poor appetite, fearful of eating full meal as it causes severe pain, bloating. Patient follow-up with vascular surgery History of [place], chronic liver disease. Stable, no evidence of hyperammonemia LFTs within normal limit, continue outpatient meds Disposition: Discharge to home today Admission and Anticipated Discharge Date Admission Date: January 26, 2021 Subjective Follow-up visit for confusion/urine tract infection: Doing very well, normal mental health status, talking appropriately, had an uneventful night, Denies of any urinary symptoms, no confusion or forgetfulness, inquiring to go home No fever chills no nausea vomiting or abdominal pain or discomfort Review of Systems Review of Systems: All systems reviewed & are unremarkable except as noted in Subjective Physical Exam Constitutional: WD/WN, vitals as above + obese; no acute distress Neck: trachea midline, no thyromegaly Respiratory: normal respiratory effort, lungs clear to auscultation Gastrointestinal (Abdomen): Inspection/Auscultation: + abdomen distended and normal bowel sounds Percussion/Palpation: abdomen soft; abdomen nontender Musculoskeletal: Extremities: extremities normal to inspection and strength 5/5 throughout Neurologic: PERRL, EOMI, accommodation nl, no face palsy, no dysarthria Psychiatric: A+Ox3, euthymic affect Results & Data Results & Data ([facility]) Vital Signs (Past 12 Hours) Vital Signs Temp Pulse Resp BP Pulse Ox 01/27/21 08:27 36.8 C 60 16 105/66 94 (1) UTI (urinary tract infection) Hematuria presence: without hematuria Urinary tract infection type: site unspecified Qualified Code(s): N39.0 - Urinary tract infection, site not specified
[2021-01-27 11:18] LABS: BUN Creatinine Ratio 9.9 (10-20); Creatinine Clr Calc Pharmacy 53.4 ml/min; Est GFR (African American) 52.1 ml/min; Potassium 3.7 mmol/L (3.5-5.1)
--- NOTE | 2021-01-27 13:44 | Discharge Summary ---
Date of Service January 27, 2021 Admission HPI Per Admitting Provider DICTATED BY: Calderon Heller MD DATE OF ADMISSION: 01/26/2021. CHIEF COMPLAINT: Abdominal discomfort. HISTORY OF PRESENT ILLNESS: This is a 70-year-old female with past medical history significant for type 2 diabetes, liver cirrhosis, history of hepatic encephalopathy, hypothyroidism, diabetic gastroparesis, hypertension, chronic diastolic CHF, CAD status post stent, moderate aortic stenosis, liver cirrhosis, portal hypertensive gastropathy, GERD, narcotic bowel syndrome, fatty liver, urinary incontinence Capihyh-Macvg-Iwbmq disease, peroneal muscle atrophy, history of thrombocytopenia, bipolar 1 disorder. The patient lives alone at home and she has caregivers at home, on regular diet. Presents because the patient states she was confused and having abdominal discomfort and found to have a UTI. The patient has some headache. Denies any blurred visions. Complains of some ear pain in the right ear. No runny nose, no sore throat, no cough, no fevers, no chest pain, no shortness of breath, no nausea, no abdominal pain. Says she was not able to micturate at home and she has to straight cath in the ER. Denies any hematuria. Bowels are moving okay and she denies any blood in stools or black stools. No swelling in the legs, no rash. Currently, resting comfortably and hemodynamically stable. Principal Diagnosis UTI metabolic encephalopathy/confusion secondary to urine tract infection resolved with ESPANA cirrhosis of liver stable Discharge Exam Constitutional WD/WN, vitals as above + obese; no acute distress Neck trachea midline, no thyromegaly Respiratory normal respiratory effort, lungs clear to auscultation Gastrointestinal (Abdomen) Inspection/Auscultation: + abdomen distended and normal bowel sounds Percussion/Palpation: abdomen soft; abdomen nontender Musculoskeletal Extremities: extremities normal to inspection and strength 5/5 throughout Neurologic PERRL, EOMI, accommodation nl, no face palsy, no dysarthria Psychiatric A+Ox3, euthymic affect Discharge Data Allergies Allergy/AdvReac Type Severity Reaction Status Date / Time propoxyphene Allergy Mild Rash Verified 01/26/21 01:47 fentanyl AdvReac Intermediate PANIC Verified 01/26/21 01:47 WANTS TO RUN AND AGGRESSIVE zolpidem AdvReac Intermediate confusion Verified 01/26/21 01:47 methocarbamol AdvReac Mild DELERIUM Verified 01/26/21 01:47 Consultations 01/26/21 00:56 ED Decision to Admit Stat Ordered Studies 01/25/21 22:40 CT angio abdomen pelvis w con Urgent Hospital Course (1) Altered mental status: On admission patient was presented with confusion, forgetfulness, disorientation Mental status improved to baseline Metabolic encephalopathy in the setting of UTI. 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 This finding will be called/faxed to the ordering provider at time of dictation. Patient reports postprandial pain, poor appetite, fearful of eating full meal as it causes severe pain, bloating. Patient follow-up with vascular surgery History of [place], chronic liver disease. Stable, no evidence of hyperammonemia LFTs within normal limit, continue outpatient meds Disposition: Discharge to home today Patient is medically stable to be discharged home does not need continued inpatient stay Total Time Total Time Spent Total Time Spent (In Minutes): 35 minutes Total Time Includes: Examination of the Patient, Discharge Planning and Medication Reconciliation Discharge Plan Discharge Items Patient Disposition: Home - Self-Care Reason For Visit: URINARY SYMPTOMS Discharge Diagnosis: UTI metabolic encephalopathy/confusion secondary to urine tract infection resolved with ESPANA cirrhosis of liver stable Superior mesenteric artery stenosis Condition on Discharge: Fair Activity: Resume your previous activity Non-emergency contact: Primary Care Provider Call non-emergency contact if: you have any medication questions Follow-up/Referrals: Brian Domínguez MD [Primary Care Provider] - 02/01/21 10:20 am (Date & Time 02/01/2021 10:20 AM Provider Eron Eric MD Department [facility] ) Diet: Heart Healthy Addtl Attending Provider Instructions: Please take all medications as instructed on discharge list below. It is recommended that you follow-up with your primary care physician within 1-2 weeks of hospital discharge to ensure you are still doing well. Please call if you have any questions or problems. You can reach a [facility] hospitalist on duty at [facility] 24 hours a day by calling [phone] [facility], [facility] [employer] Technician Provider Instructions: Follow-up with vascular surgery outpatient Take probiotic when you are taking antibiotics. Pending Studies at Discharge: No Stand-Alone Forms: My [facility], Smoking Cessation Medications and DC Order Prescriptions: New amoxicillin-pot clavulanate [Augmentin] 875-125 mg tablet 1 tab PO BID 5 Days Qty: 10 RF: 0 Continued ondansetron HCl 8 mg tablet 8 mg PO Q8H PRN (Reason: Nausea) RF: 0 famotidine 40 mg tablet 40 mg PO HS RF: 0 lamotrigine 25 mg tablet 25 mg PO UD RF: 0 levothyroxine 88 mcg tablet 88 mcg PO QAM RF: 0 lamotrigine 100 mg tablet 100 mg PO QAM RF: 0 aripiprazole 2 mg tablet 2 mg PO HS RF: 0 nitroglycerin [Nitrostat] 0.4 mg Tablet, Sublingual 0.4 mg Sublingual DIRECTED PRN (Reason: Chest Pain) RF: 0 ergocalciferol (vitamin D2) 50,000 unit Capsule 50,000 units PO TH RF: 0 albuterol sulfate [Ventolin HFA] 90 mcg/actuation Hfa Aerosol Inhaler 2 puff INHALATION QID PRN (Reason: Shortness Of Breath Or Wheezing) RF: 0 morphine 15 mg Tablet Extended Release 15 mg PO Q12H RF: 0 torsemide 20 mg tablet 20 mg PO BID RF: 0 montelukast 10 mg Tablet 10 mg PO DAILY@1600 RF: 0 Basaglar KwikPen U-100 Insulin 100 unit/mL (3 mL) Insulin Pen 15 unit SUBCUT QAM RF: 0 Trulicity 1.5 mg/0.5 mL Pen Injector 1.5 mg SUBCUT FR RF: 0 oxybutynin chloride [Ditropan XL] 10 mg Tablet Extended Release 24hr 10 mg PO HS RF: 0 spironolactone [Aldactone] 50 mg tablet 50 mg PO BID RF: 0 venlafaxine 75 mg capsule,extended release 24hr 75 mg PO QAM RF: 0 trazodone 50 mg Tablet 100 mg PO HS RF: 0 metoprolol succinate 50 mg Tablet Extended Release 24 Hr 50 mg PO BID RF: 0 metformin 500 mg tablet 1,000 mg PO BID RF: 0 Xifaxan 550 mg Tablet 550 mg PO BID RF: 0 atorvastatin 80 mg Tablet 80 mg PO DAILY RF: 0 fosfomycin tromethamine 3 gram packet 3 g PO .Q3DAYS RF: 0 aspirin 81 mg Tablet,Delayed Release (Dr/Ec) 81 mg PO DAILY RF: 0 pantoprazole 40 mg tablet,delayed release (DR/EC) 40 mg PO DAILY RF: 0 nystatin 100,000 unit/gram cream 1 applic TOPICAL .BID UD RF: 0 fluticasone propionate 50 mcg/actuation spray,suspension 2 spray INTRANASAL DAILY RF: 0 oxycodone 5 mg tablet 5 mg PO Q8 PRN (Reason: Outbreak) RF: 0 lactulose 10 gram/15 mL Solution 45 g PO BID RF: 0 Trulicity 3 mg/0.5 mL pen injector 3 mg SUBCUT WK RF: 0 isosorbide mononitrate 30 mg tablet extended release 24 hr 30 mg PO QAM RF: 0 venlafaxine 150 mg capsule,extended release 24hr 150 mg PO QAM RF: 0 gabapentin 600 mg tablet 600 mg PO BID RF: 0 clonazepam 0.5 mg tablet 0.5 mg PO TID Qty: 0 RF: 0 Discharge Orders: Discharge Order (Routine); Ordered 01/27/21 Ordered By: Julianne Doshi/Other Patient Handouts: Understanding Urinary Tract ... Admission Data Admit Date/Time: 01/26/21 01:44 Attending Provider: Julianne Armijo Admit Provider: Calderon Heller Primary Care Provider: Brian Domínguez Other Providers: Calderon Heller ; [facility] Fax Other Interventions: Discharge Summary Assessment (RN) Last Done: 01/27/21 12:34
--- NOTE | 2021-01-27 16:01 | Communication Note ---
Date of Service: January 27, 2021 Code 44 attestation: She is a 70-year-old female was admitted with acute confusional state secondary to UTI which cleared with appropriate management in the hospital. Her chart, labs and imaging studies reviewed. She was appropriately cared by the attending physician and she was medically stable to be discharged. By CMS guidelines, a determination that the admission or continued stay is not medically necessary has been made by a member of the UR committee and a physician for this hospital stay, therefore a Code 44 will be completed and the Inpatient admission will be changed to outpatient. Dr Lisa Chery Member UR committee
--- NOTE | 2021-01-27 16:33 | Communication Note ---
Date of Service: January 27, 2021 Attending note: Patient was discharged around noontime today, was alert and oriented conversing appropriately, I confirmed with floor nurse as well, She was dependent, no disoriented noted by nursing staff. Per nursing there was no episode of sundowning events last night as well. Not had any fever blood pressure was stable Was discharged home today with p.o. antibiotic for possible urinary tract infection(urine culture this admission was negative, but prior urine culture on January 07 grew Enterococcus) Patient has history of recurrent UTI, Liver function test and ammonia level was within normal limits today, Had mild elevation of creatinine Received a call from patient's daughter Carolyn at 4:30 PM, Patient is hallucinating at home, seeing people are coming in to get to her, bugs crawling on the floor and on the ceiling Patient's aide unable to calm her down, Patient is well-known to our service secondary to multiple episodes of hepatic and metabolic encephalopathy. Her mental status declined rapidly Will need to be reevaluated, Patient will be admitted directly under my service on medical floor Hospital admission updated, Daughter will bring patient to the hospital once medical bed is available. All continue to be patient's attending during her hospital stay. Julianne Armijo MD
== END 2021-01-27 12:54 | disposition home health service (06) | DRG 689 ==
LOC: ED 21:46 → 3E 01-26 01:44

== ENCOUNTER 2021-01-27 16:43 | Inpatient (IN) ==
[2021-01-27] MEDS ORDERED: ALUMINUM/MAGNESIUM SUSP 30 ML UDC PO PRN (17:36)
[2021-01-27] MEDS ORDERED: ACETAMINOPHEN 325 MG TAB PO PRN (17:36)
[2021-01-27] MEDS ORDERED: POLYETHYLENE (MIRALAX) 17 GM PACK PO PRN (17:36)
[2021-01-27] MEDS ORDERED: MAGNESIUM HYDROXIDE SUSP 30 ML UDC PO PRN (17:36)
[2021-01-27] MEDS ORDERED: ONDANSETRON INJ 2 MG/ML 2 ML VIAL IV PRN (17:36)
--- NOTE | 2021-01-27 17:36 | History & Physical Report ---
Date of Service January 27, 2021 Assessment & Plan (1) Altered mental status: Plan: Hallucination/delusion: Not sure of the etiology, does not appear to be hepatic encephalopathy patient had normal LFTs, normal ammonia level, Admitted with a new tract infection, will continue with amoxicillin History of bipolar disorder, concern for possible psychosis? Hallucination and disorientation appears to be more situational, Very pleasant cooperative appropriate with nursing, Gets very guarded, anxious around her family members Worried that she is having dementia and losing her thought process Feels her anxiety makes her seeing things? Patient is already on scheduled dose of Klonopin On multiple antipsychiatric meds Psych consulted to assess medication regimen Acute renal failure on CKD stage III: No report of diarrhea or loose stool Follow BMP we will hold patient's diuretics Recurrent UTI, chronic urinary retention Daughter feels patient urinary retention, UTI possible causing her decline and confusion Requests urology evaluation Urology consulted Continue antibiotic amoxicillin Repeat urine culture ordered History of [place] cirrhosis: Liver function within normal limit Type 2 diabetes: Continue insulin sliding scale Diastolic CHF chronic Status stable, holding diuretics for acute renal failure Will be resumed once renal function improves to baseline DVT prophylaxis subcu heparin Disposition: Lives at home has 24-hour caregiver through aid service Daughter Carolyn involved very closely for her care, updated at bedside PT OT evaluation requested Service consulted, to assess whether patient will benefit with rehab Admission and Anticipated Discharge Date Admission Date: January 27, 2021 History of Present Illness Chief Complaint: Confusion/hallucination Primary Care Provider: Brina Domínguez MD She is a 70-year-old female with multiple comorbidities, [place] cirrhosis of marlene er, multiple admission with hepatic encephalopathy, Type 2 diabetes chronic urinary retention with recurrent urine tract infection prior history of CABG history of bipolar mood disorder chronic CHF with diastolic dysfunction Patient was admitted to [facility] yesterday January 26, 2021 with confusion disorientation thought to be secondary to UTI, Admitted to floor, treated with IV amoxicillin given last admission January 07, 2021 urine culture grew enterococci, Urine culture this admission review pinpoint growth- Patient was discharged on p.o. cefdinir Throughout her hospital stay overnight, patient had no episode of confusion hallucination or disorientation, episode per nursing Saw her on January 26 and the morning of January 27, she remains very pleasant oriented to her surroundings, ambulating independently, Lab work including CBC liver function was okay Due to her history of hepatic encephalopathy ammonia level was checked which was within normal limit Patient was discharged home with above antibiotic Patient was discharged around noontime today, was alert and oriented conversing appropriately, I confirmed with floor nurse as well, She was dependent, no disoriented noted by nursing staff. Per nursing there was no episode of sundowning events last night as well. Not had any fever blood pressure was stable Was discharged home today with p.o. antibiotic for possible urinary tract infection(urine culture this admission was negative, but prior urine culture on January 07 grew Enterococcus) Patient has history of recurrent UTI, Liver function test and ammonia level was within normal limits today, Had mild elevation of creatinine Received a call from patient's daughter Carolyn at 4:30 PM, Patient is hallucinating at home, seeing people are coming in to get to her, bugs crawling on the floor and on the ceiling Patient's aide unable to calm her down, Patient is well-known to our service secondary to multiple episodes of hepatic and metabolic encephalopathy. Her mental status declined rapidly Will need to be reevaluated, Patient was directly admitted to medical floor under my service. Reevaluated patient at bedside, alert and oriented, does not appear to be confused or hallucinating Daughter and pt's aide are present at bedside reports-on the ride to home patient was okay After returning home patient started to complain of having lot of people in her house, fighting They took her coffee mug, refrigerator She went to the restroom, unable to get up from the toilet, complaining about their people surrounding her, I was interviewing her patient was anxious, No overt sign of delirium or hallucination, This is patient's third admission during this month, first admission was from 07 January -January 13: UTI metabolic encephalopathy, hallucination Allergies Allergy/AdvReac Type Severity Reaction Status Date / Time propoxyphene Allergy Mild Rash Verified 01/26/21 01:47 fentanyl AdvReac Intermediate PANIC Verified 01/26/21 01:47 WANTS TO RUN AND AGGRESSIVE zolpidem AdvReac Intermediate confusion Verified 01/26/21 01:47 methocarbamol AdvReac Mild DELERIUM Verified 01/26/21 01:47 Home Medications Medication Instructions Recorded Confirmed Type albuterol sulfate 90 mcg/actuation 2 puff INHALATION QID PRN 04/27/18 01/26/21 History aerosol inhaler (Ventolin HFA) aripiprazole 2 mg tablet 2 mg PO HS 04/27/18 01/26/21 History ergocalciferol (vitamin D2) 1,250 50,000 units PO TH 04/27/18 01/26/21 History mcg (50,000 unit) capsule famotidine 40 mg tablet 40 mg PO HS 04/27/18 01/26/21 History lamotrigine 100 mg tablet 100 mg PO QAM 04/27/18 01/26/21 History lamotrigine 25 mg tablet 25 mg PO UD 04/27/18 01/26/21 History levothyroxine 88 mcg tablet 88 mcg PO QAM 04/27/18 01/26/21 History nitroglycerin 0.4 mg sublingual 0.4 mg SUBLINGUAL DIRECTED PRN 04/27/18 01/26/21 History tablet (Nitrostat) ondansetron HCl 8 mg tablet 8 mg PO Q8H PRN 04/27/18 01/26/21 History torsemide 20 mg tablet 20 mg PO BID 09/03/18 01/26/21 History montelukast 10 mg tablet 10 mg PO DAILY@1600 06/11/19 01/26/21 History spironolactone 50 mg tablet 50 mg PO BID 09/15/19 01/26/21 History (Aldactone) venlafaxine 75 mg capsule,extended 75 mg PO QAM 09/15/19 01/26/21 History release 24 hr dulaglutide 1.5 mg/0.5 mL 1.5 mg SUBCUT FR 12/22/19 01/26/21 History subcutaneous pen injector (Trulicity) insulin glargine 100 unit/mL (3 15 unit SUBCUT QAM 12/22/19 01/26/21 History mL) subcutaneous pen (Basaglar KwikPen U-100 Insulin) oxybutynin chloride 10 mg 10 mg PO HS 12/22/19 01/26/21 History tablet,extended release 24 hr (Ditropan XL) morphine 15 mg tablet,extended 15 mg PO Q12H 01/16/20 01/26/21 History release metformin 500 mg tablet 1,000 mg PO BID 03/21/20 01/26/21 History metoprolol succinate 50 mg 50 mg PO BID 03/21/20 01/26/21 History tablet,extended release 24 hr rifaximin 550 mg tablet (Xifaxan) 550 mg PO BID 03/21/20 01/26/21 History trazodone 50 mg tablet 100 mg PO HS 03/21/20 01/26/21 History gabapentin 600 mg tablet 600 mg PO BID 01/07/21 01/26/21 History isosorbide mononitrate 30 mg 30 mg PO QAM 01/07/21 01/26/21 History tablet,extended release 24 hr venlafaxine 150 mg 150 mg PO QAM 01/07/21 01/26/21 History capsule,extended release 24 hr clonazepam 0.5 mg tablet 0.5 mg PO TID #0 tab 01/12/21 01/26/21 Rx aspirin 81 mg tablet,delayed 81 mg PO DAILY 01/26/21 01/26/21 History release atorvastatin 80 mg tablet 80 mg PO DAILY 01/26/21 01/26/21 History dulaglutide 3 mg/0.5 mL 3 mg SUBCUT WK 01/26/21 01/26/21 History subcutaneous pen injector (Trulicity) fluticasone propionate 50 2 spray INTRANASAL DAILY 01/26/21 01/26/21 History mcg/actuation nasal spray,suspension fosfomycin tromethamine 3 gram 3 g PO .Q3DAYS 01/26/21 01/26/21 History oral packet lactulose 10 gram/15 mL oral 45 g PO BID 01/26/21 01/26/21 History solution nystatin 100,000 unit/gram topical 1 applic TOPICAL .BID UD 01/26/21 01/26/21 H istory cream oxycodone 5 mg tablet 5 mg PO Q8 PRN 01/26/21 01/26/21 History pantoprazole 40 mg tablet,delayed 40 mg PO DAILY 01/26/21 01/26/21 History release amoxicillin 875 mg-potassium 1 tab PO BID 5 Days #10 tab 01/27/21 Rx clavulanate 125 mg tablet (Augmentin) Past Med/Surg History Medical History Anxiety Bipolar disorder CAD (coronary artery disease) History of multiple PCI's to the RCA with subsequent CABG x1 in 2010 x 1 vessel Most recent cardiac testing-negative DSE in December 2017 Follows w/ Dr. Blackwell and Dr. Lucas [id number]-[id number]-[id number] disease follows w/ Dr. Lemus Chronic diastolic CHF (congestive heart failure) Chronic pain syndrome Depression DM type 2 (diabetes mellitus, type 2) IDDM Dyslipidemia Encephalopathy d/c from [facility] 09/20/19 (hepatic encephalopathy) Gastroparesis GERD (gastroesophageal reflux disease) Hypertension Hypothyroidism Irregular heart beat follows Dr. Lucas / S[facility] Brewster Liver cirrhosis secondary to ESPANA Moderate aortic stenosis ESPANA (nonalcoholic steatohepatitis) Osteoarthritis Portal hypertensive gastropathy Spondylosis Urinary incontinence UTI (urinary tract infection) REASON FOR CIPRO Surgical History History of appendectomy History of back surgery sacral area History of cardiac cath multiple - most recent - 2 years ago @ [facility] History of cataract surgery RT History of colonoscopy History of esophagogastroduodenoscopy (EGD) History of heart artery stent 2 yrs ago @ [facility] > unsure of how many stents > follows Dr. Lucas History of total right knee replacement Hx of cholecystectomy S/P CABG x 1 2010 - single vessel S/P CARLOS (total abdominal hysterectomy) Family History Father Coronary heart disease Brother Coronary heart disease Father Diabetes Mother Diabetes Social History Smoking Status: Never smoker Second Hand Exposure: Yes (DAUGHTER SMOKES); Hx Alcohol Use: No Hx Substance Use: No Preferred Language: Greenlandic Communication Ability: Effective Rn Ortho Required: No Beliefs That Will Affect Care: None marital status: / Current Living Situation: Alone Other Information That Helps Us Care for You: No Feels Safe at Home: Yes Safety Concerns: Feels Safe At This Time Assistive Devices: Walker Review of Systems Constitutional: as per Subjective / HPI; no fever and no weakness Cardiovascular: no chest pain, no palpitations and no edema Gastrointestinal: no abdominal pain, no bloating, no nausea and no vomiting Genitourinary: no dysuria, no difficulty urinating, no urinary frequency and no urinary hesitancy Neurologic: as per Subjective / HPI Psychiatric: + hallucinations, + visual hallucinations and + problem reported (Hallucination, disorientation) Physical Exam Constitutional: WD/WN, vitals as above + morbidly obese; no acute distress ENMT: external ear and nose normal, oropharynx normal Neck: trachea midline, no thyromegaly Respiratory: normal respiratory effort, lungs clear to auscultation Cardiovascular: RRR, no murmur, no edema Gastrointestinal (Abdomen): Inspection/Auscultation: + abdomen distended (Chronic) and normal bowel sounds Percussion/Palpation: abdomen soft; abdomen nontender Musculoskeletal: no cyanosis or clubbing, extremities motor strength 5/5 Skin: + wound (Multiple skin puncture wound on both arms, with surrounding erythema) Psychiatric: Orientation: alert and oriented x 3 Eye Contact: + fair eye contact Affect: + anxious affect Suicidal Thoughts: + reports suicidal thoughts Hallucinations: + visual hallucinations
[2021-01-27] MEDS ORDERED: ALBUTEROL HFA 8 GM INHALER INH PRN (17:42)
[2021-01-27] MEDS ORDERED: NITROGLYCERIN SL 0.4 MG/TAB TAB SL PRN (17:42)
[2021-01-27] MEDS ORDERED: GLUCAGON FOR INJ 1 MG VIAL SQ PRN (17:45)
[2021-01-27] MEDS ORDERED: GLUCOSE 40% GEL 15 GM TUBE PO PRN (17:45)
[2021-01-27] MEDS ORDERED: PATIENT'S HEIGHT AND/OR WEIGHT NEEDED SCH (17:45)
[2021-01-27] MEDS ORDERED: CARBOHYDRATES FOR HYPOGLYCEMIA PO PRN (17:45)
[2021-01-27] MEDS ORDERED: DEXTROSE 50% 50 ML SYRINGE IV PRN (17:45)
[2021-01-27] MEDS ORDERED: GLUCOSE 10 TABS/TUBE PO PRN (17:45)
[2021-01-27] MEDS ORDERED: ONDANSETRON 8MG OD TAB PO PRN (18:00)
--- NOTE | 2021-01-27 19:42 | Urology Consultation ---
Date of Consultation January 27, 2021 Assessment & Plan (1) UTI (urinary tract infection): Patient has been admitted to the hospital service we recommend proceeding as follows: As patient had a recent enterococcal urinary tract infection recommend continuing treatment with ampicillin until most recent urine culture is available. Once urine culture is available antibiotics can be tailored based on these results Due to reported history of urinary retention we recommend checking a postvoid residual via bladder scan following the patient's next void. If the patient has a large amount of retained urine straight cath may be required to empty her bladder completely. Treatment of her existing urinary tract infection may help this problem. Remainder of plan as directed by the hospitalist service History of Present Illness Reason for Consultation: Urinary retention and urinary tract infection Attending Physician: Julianne Armijo MD History of Present Illness This is a 70-year-old female who is recently admitted to [facility] on January 26 and discharged on January 27. Patient was admitted to the hospital as she has numerous medical comorbidities and lives alone. The patient was having episodes of confusion and abdominal discomfort and found to have a urinary tract infection. Patient was ultimately admitted secondary to metabolic encephalopathy tach secondary to urinary tract infection which was apparently resolved prior to discharge. It is no over the mention that the patient did hav e a urine culture showed multiple organisms with only pinpoint growth. Patient's records were reviewed and earlier this month patient did have a urine culture growing Enterococcus and she was treated with 5 days of amoxicillin. Patient's metabolic encephalopathy resolved and patient was discharged home with plans to complete a 5-day course of Augmentin. Patient was apparently doing well at time of discharge however the hospitalist who was caring for the patient received a call from patient's daughter who reported that the patient was hallucinating and unable to recheck calm state of mind. Because of this she was readmitted to the hospital. I discussed with the patient and she does note some lower abdominal discomfort as well as some bilateral flank pain with percussion. She denies any fevers, shakes, chills. She does note some dysuria but denies any hematuria. She says earlier she was having difficulty urinating but has since been able to void but does note that when she does void she feels as though she cannot completely empty her bladder. She denies any other complaints. Patient's records were reviewed and she did have a CT scan of the abdomen pelvis on January 25 this year that showed no acute process within the abdomen or pelvis. Labs during her most recent admission did not exhibit any leukocytosis or evidence of acute kidney injury. Since readmission to the hospital the patient has had a repeat urine culture sent which is pending. She has been placed on antibiotics in the form of ampicillin intravenously. At the time of my exam the patient was resting comfortably in bed in no distress or pain. Allergies Allergy/AdvReac Type Severity Reaction Status Date / Time propoxyphene Allergy Mild Rash Verified 01/26/21 01:47 fentanyl AdvReac Intermediate PANIC Verified 01/26/21 01:47 WANTS TO RUN AND AGGRESSIVE zolpidem AdvReac Intermediate confusion Verified 01/26/21 01:47 methocarbamol AdvReac Mild DELERIUM Verified 01/26/21 01:47 Home Medications Medication Instructions Recorded Confirmed Type albuterol sulfate 90 mcg/actuation 2 puff INHALATION QID PRN 04/27/18 01/26/21 History aerosol inhaler (Ventolin HFA) aripiprazole 2 mg tablet 2 mg PO HS 04/27/18 01/26/21 History ergocalciferol (vitamin D2) 1,250 50,000 units PO TH 04/27/18 01/26/21 History mcg (50,000 unit) capsule famotidine 40 mg tablet 40 mg PO HS 04/27/18 01/26/21 History lamotrigine 100 mg tablet 100 mg PO QAM 04/27/18 01/26/21 History lamotrigine 25 mg tablet 25 mg PO UD 04/27/18 01/26/21 History levothyroxine 88 mcg tablet 88 mcg PO QAM 04/27/18 01/26/21 History nitroglycerin 0.4 mg sublingual 0.4 mg SUBLINGUAL DIRECTED PRN 04/27/18 01/26/21 History tablet (Nitrostat) ondansetron HCl 8 mg tablet 8 mg PO Q8H PRN 04/27/18 01/26/21 History torsemide 20 mg tablet 20 mg PO BID 09/03/18 01/26/21 History montelukast 10 mg tablet 10 mg PO DAILY@1600 06/11/19 01/26/21 History spironolactone 50 mg tablet 50 mg PO BID 09/15/19 01/26/21 History (Aldactone) venlafaxine 75 mg capsule,extended 75 mg PO QAM 09/15/19 01/26/21 History release 24 hr dulaglutide 1.5 mg/0.5 mL 1.5 mg SUBCUT FR 12/22/19 01/26/21 History subcutaneous pen injector (Trulicity) insulin glargine 100 unit/mL (3 15 unit SUBCUT QAM 12/22/19 01/26/21 History mL) subcutaneous pen (Basaglar KwikPen U-100 Insulin) oxybutynin chloride 10 mg 10 mg PO HS 12/22/19 01/26/21 History tablet,extended release 24 hr (Ditropan XL) morphine 15 mg tablet,extended 15 mg PO Q12H 01/16/20 01/26/21 History release metformin 500 mg tablet 1,000 mg PO BID 03/21/20 01/26/21 History metoprolol succinate 50 mg 50 mg PO BID 03/21/20 01/26/21 History tablet,extended release 24 hr rifaximin 550 mg tablet (Xifaxan) 550 mg PO BID 03/21/20 01/26/21 History trazodone 50 mg tablet 100 mg PO HS 03/21/20 01/26/21 History gabapentin 600 mg tablet 600 mg PO BID 01/07/21 01/26/21 History isosorbide mononitrate 30 mg 30 mg PO QAM 01/07/21 01/26/21 History tablet,extended release 24 hr venlafaxine 150 mg 150 mg PO QAM 01/07/21 01/26/21 History capsule,extended release 24 hr clonazepam 0.5 mg tablet 0.5 mg PO TID #0 tab 01/12/21 01/26/21 Rx aspirin 81 mg tablet,delayed 81 mg PO DAILY 01/26/21 01/26/21 History release atorvastatin 80 mg tablet 80 mg PO DAILY 01/26/21 01/26/21 History dulaglutide 3 mg/0.5 mL 3 mg SUBCUT WK 01/26/21 01/26/21 History subcutaneous pen injector (Trulicity) fluticasone propionate 50 2 spray INTRANASAL DAILY 01/26/21 01/26/21 History mcg/actuation nasal spray,suspension fosfomycin tromethamine 3 gram 3 g PO .Q3DAYS 01/26/21 01/26/21 History oral packet lactulose 10 gram/15 mL oral 45 g PO BID 01/26/21 01/26/21 History solution nystatin 100,000 unit/gram topical 1 applic TOPICAL .BID UD 01/26/21 01/26/21 History cream oxycodone 5 mg tablet 5 mg PO Q8 PRN 01/26/21 01/26/21 History pantoprazole 40 mg tablet,delayed 40 mg PO DAILY 01/26/21 01/26/21 History release amoxicillin 875 mg-potassium 1 tab PO BID 5 Days #10 tab 01/27/21 Rx clavulanate 125 mg tablet (Augmentin) Patient History Medical History Anxiety Bipolar disorder CAD (coronary artery disease) History of multiple PCI's to the RCA with subsequent CABG x1 in 2010 x 1 vessel Most recent cardiac testing-negative DSE in December 2017 Follows w/ Dr. Blackwell and Dr. Lucas [id number]-Lsjgs disease follows w/ Dr. Lemus Chronic diastolic CHF (congestive heart failure) Chronic pain syndrome Depression DM type 2 (diabetes mellitus, type 2) IDDM Dyslipidemia Encephalopathy d/c from [facility] 09/20/19 (hepatic encephalopathy) Gastroparesis GERD (gastroesophageal reflux disease) Hypertension Hypothyroidism Irregular heart beat follows Dr. 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 Moderate aortic stenosis GONZALEZ (nonalcoholic steatohepatitis) Osteoarthritis Portal hypertensive gastropathy Spondylosis Urinary incontinence UTI (urinary tract infection) REASON FOR CIPRO Surgical History History of appendectomy History of back surgery sacral area History of cardiac cath multiple - most recent - 2 years ago @ [facility] History of cataract surgery RT History of colonoscopy History of esophagogastroduodenoscopy (EGD) History of heart artery stent 2 yrs ago @ [facility] > unsure of how many stents > follows Dr. Lucas History of total right knee replacement Hx of cholecystectomy S/P CABG x 1 2010 - single vessel S/P CARLOS (total abdominal hysterectomy) Family History Father Coronary heart disease Brother Coronary heart disease Father Diabetes Mother Diabetes Social History Smoking Status: Never smoker Second Hand Exposure: Yes (DAUGHTER SMOKES); Hx Alcohol Use: No Hx Substance Use: No Preferred Language: Irish Communication Ability: Effective Slab Conditioner Supervisor Required: No Beliefs That Will Affect Care: None marital status: / Current Living Situation: Alone Other Information That Helps Us Care for You: No Feels Safe at Home: Yes Safety Concerns: Feels Safe At This Time Assistive Devices: Brace/Splint/Immobilizer, Denture - Upper, Denture - Lower, Glasses and Walker Review of Systems Constitutional: no fever and no chills Eyes: no diplopia Ear, Nose, Mouth, Throat: no ear pain Respiratory: no cough and no dyspnea Cardiovascular: no chest pain Gastrointestinal: Minor abdominal discomfort in the suprapubic region noted. No nausea or vomiting Genitourinary: + dysuria and + flank pain Musculoskeletal: no neck pain Integumentary: no rash Neurologic: no localized weakness Physical Exam Constitutional: well developed and well nourished; no acute distress Eyes: no conjunctival abnormality ENMT: Ears: no hearing impairment Neck: trachea midline Respiratory: normal respiratory effort; no respiratory distress and no labored breathing Cardiovascular: Rate/Rhythm: regular rate and regular rhythm Gastrointestinal (Abdomen): Abdomen is soft and nondistended. Bowel sounds are present. There is no rebound tenderness or guarding. There is no pain with palpation. Musculoskeletal: No calf tenderness Skin: no rashes Neurologic: moves all extremities Psychiatric: A+Ox3, euthymic affect Results & Data ([facility]) Vital Signs (Past 12 Hours) Vital Signs Temp Pulse Resp BP BP Pulse Ox 01/27/21 17:53 37.0 C 62 16 103/67 93 01/27/21 17:37 37.2 C 63 16 122/74 92 PG Care Time/CCT Total # of Minutes Spent Total Time Spent with Patient: Total time spent is greater than 50% in coordination of care (as documented) at patient's floor/unit and/or counseling patient: Coding Level of Care Code 74776 Inpt Consult Level 5 Diagnoses UTI (urinary tract infection) N39.0 Hematuria presence: without hematuria Urinary tract infection type: site unspecified (1) UTI (urinary tract infection) Hematuria presence: without hematuria Urinary tract infection type: site unspecified Qualified Code(s): N39.0 - Urinary tract infection, site not specified
[2021-01-27] MEDS: AMPICILLIN 2,000 MG in SODIUM CHLOR 0.9% AD-VAN 100 ML IV SCH (19:52)
[2021-01-27] MEDS: MoRPHine SULFATE CR 15 MG TABCR PO SCH (19:53)
[2021-01-27] MEDS: NYSTATIN CR 15 GM TUBE EXT SCH (19:58)
[2021-01-27] MEDS: lamoTRIgine 25 MG TAB PO SCH (19:59)
[2021-01-27] MEDS: traZODone HCL 100 MG TAB PO SCH (19:59)
[2021-01-27] MEDS: rifAXIMin 550 MG TABLET PO SCH (19:59)
[2021-01-27] MEDS: METOPROLOL SUCC 50MG EXT REL TAB PO SCH (19:59)
[2021-01-27] MEDS: GABAPENTIN 600 MG TAB PO SCH (19:59)
[2021-01-27] MEDS: FAMOTIDINE 40 MG TABLET PO SCH (19:59)
[2021-01-27] MEDS: OXYBUTYNIN CHLORIDE XL 5 MG TABCR PO SCH (20:00)
[2021-01-27] MEDS: LACTULOSE SYRUP 10 GM/15 ML BTL 960 ML PO SCH (20:00)
[2021-01-27] MEDS: ARIPIprazole 1 MG/ML ORAL SOLN 150 ML BTL PO SCH (20:00)
[2021-01-27] MEDS: clonazePAM 0.5 MG TAB PO SCH (20:44)
[2021-01-27] MEDS: INSULIN ASPART 100 UNITS/ML 3 ML PEN SC SCH (20:44)
[2021-01-27] MEDS: HEPARIN SOD 5,000 UNIT/0.5 ML VIAL SQ SCH (20:45)
[2021-01-28] MEDS: AMPICILLIN 2,000 MG in SODIUM CHLOR 0.9% AD-VAN 100 ML IV SCH ×4 (00:23→18:40)
[2021-01-28] MEDS: HEPARIN SOD 5,000 UNIT/0.5 ML VIAL SQ SCH ×3 (05:45→21:33)
[2021-01-28] MEDS: LEVOTHYROXINE SODIUM 88 MCG TABLET PO SCH (05:45)
[2021-01-28] MEDS: MoRPHine SULFATE CR 15 MG TABCR PO SCH ×2 (05:45→18:40)
[2021-01-28 08:16] LABS: Hematocrit (blood only) 35.1 % (37-47); Hemoglobin 11.2 g/dL (12.0-16.0); Mean Corpuscular Hemoglobin 23.8 pg (25-34); Mean Corpuscular Hgb Conc 31.9 g/dL (32-36); Mean Corpuscular Volume 74.7 fL (80-100); Mean Platelet Volume 9.5 fL (7.4-10.4); Platelet Count 123 K/uL (130-400); RDW Coefficient of Variation 16.4 % (11.5-14.5); RDW Standard Deviation 44.9 fL (36.4-46.3)
[2021-01-28 08:31] LABS: Albumin Level 3.3 gm/dl (3.4-5.0); BUN Creatinine Ratio 11.5 (10-20); Calcium 9.2 mg/dl (8.5-10.1); Creatinine Clr Calc Pharmacy 62.7 ml/min; Est GFR (African American) 63.3 ml/min; Est GFR (Non-African American) 54.6 ml/min; Potassium 3.3 mmol/L (3.5-5.1)
[2021-01-28 08:42] LABS: Albumin Globulin Ratio 0.9 (0.9-2); Bilirubin,Total 0.7 mg/dl (0.2-1); Globulin 3.7 gm/dl (2.5-4.0); Thyroid Stimulating Hormone 1.93 uIu/ml (0.300-4.500)
[2021-01-28] MEDS: ASPIRIN 81 MG ECTAB PO SCH (09:01)
[2021-01-28] MEDS: ATORVASTATIN 40 MG TAB PO SCH (09:01)
[2021-01-28] MEDS: lamoTRIgine 100 MG TAB PO SCH (09:01)
[2021-01-28] MEDS: lamoTRIgine 25 MG TAB PO SCH ×2 (09:01→21:32)
[2021-01-28] MEDS: VENLAFAXINE HCL XR 75 MG CAPXR PO SCH (09:02)
[2021-01-28] MEDS: PANTOprazole 40 MG TAB PO SCH (09:02)
[2021-01-28] MEDS: ISOSORBIDE MONO EXTENDED REL 30 MG TABCR PO SCH (09:02)
[2021-01-28] MEDS: rifAXIMin 550 MG TABLET PO SCH ×2 (09:02→21:32)
[2021-01-28] MEDS: VENLAFAXINE HCL XR 150 MG CAPXR PO SCH (09:02)
[2021-01-28] MEDS: GABAPENTIN 600 MG TAB PO SCH ×2 (09:03→21:30)
[2021-01-28] MEDS: METOPROLOL SUCC 50MG EXT REL TAB PO SCH ×2 (09:04→21:30)
[2021-01-28] MEDS: FLUTICASONE PROPIONATE NA SPR 16 GM BTL NAE SCH ×2 (09:04→09:18)
[2021-01-28] MEDS: NYSTATIN CR 15 GM TUBE EXT SCH ×2 (09:06→21:25)
[2021-01-28] MEDS: clonazePAM 0.5 MG TAB PO SCH ×3 (09:06→21:25)
[2021-01-28] MEDS: LACTULOSE SYRUP 10 GM/15 ML BTL 960 ML PO SCH ×3 (09:07→21:45)
[2021-01-28] MEDS: INSULIN GLARGINE SOLOSTAR 100 UNITS/ML 3 ML PEN SQ SCH (09:08)
[2021-01-28] MEDS: INSULIN ASPART 100 UNITS/ML 3 ML PEN SC SCH ×4 (09:10→21:34)
[2021-01-28] MEDS ORDERED: POTASSIUM CHLORIDE CRTAB 20 MEQ TABCR PO STA (09:20)
--- NOTE | 2021-01-28 13:25 | Hospitalist Progress Note ---
Date of Service January 28, 2021 Assessment & Plan (1) Altered mental status: Plan: Hallucination/delusion: Had an unremarkable night, No apparent hallucination or delusion this morning Renal function improved to baseline no fever or chills, Patient home antipsychiatric medication continued, Psych consulted to assess medication regimen Concern for vaginal bleed? Daughter and aide reports they noted multiple times blood patient's pad, Report of such during patient's hospital stay Patient is status post hysterectomy Possible dryness around vulva? Ordered for estrogen cream Acute renal failure on CKD stage III: Resolved, renal function back to baseline Recurrent UTI, chronic urinary retention Daughter feels patient urinary retention, UTI possible causing her decline and confusion Neurology consult appreciated, ordered for post void bladder scan, Post void scan showed urinary retention approximately 300 ml Ordered for straight cath, History of [place] cirrhosis: Liver function within normal limit Type 2 diabetes: Continue insulin sliding scale Diastolic CHF chronic Stable volume status diuretics will be resumed DVT prophylaxis subcu heparin Disposition: Lives at home has 24-hour caregiver through aid service Daughter Carolyn involved very closely for her care, updated at bedside PT OT evaluation requested Service consulted, to assess whether patient will benefit with rehab Admission and Anticipated Discharge Date Admission Date: January 27, 2021 Subjective Seen at bedside, sitting on the edge of the bed finishing breakfast States that she had an unremarkable night, when asked about hallucination denies of any unusual thoughts or seeing pains, Aware of happened yesterday, Very tearful, anxious, asking whether she is developing dementia causing her to seeing things No fever or chills no cough no shortness of breath, no abdominal pain no nausea vomiting or diarrhea Review of Systems Constitutional: as per Subjective / HPI; no fever and no weakness Cardiovascular: no chest pain, no palpitations and no edema Gastrointestinal: no abdominal pain, no bloating, no nausea and no vomiting Genitourinary: no dysuria, no difficulty urinating, no urinary frequency and no urinary hesitancy Neurologic: as per Subjective / HPI Physical Exam Constitutional: WD/WN, vitals as above + morbidly obese; no acute distress ENMT: external ear and nose normal, oropharynx normal Neck: trachea midline, no thyromegaly Respiratory: normal respiratory effort, lungs clear to auscultation Cardiovascular: RRR, no murmur, no edema Gastrointestinal (Abdomen): Inspection/Auscultation: + abdomen distended (Chronic) and normal bowel sounds Percussion/Palpation: abdomen soft; abdomen nontender Musculoskeletal: no cyanosis or clubbing, extremities motor strength 5/5 Skin: + wound (Multiple skin puncture wound on both arms, with surrounding erythema) Psychiatric: Orientation: alert and oriented x 3 Eye Contact: + fair eye contact Affect: + anxious affect Results & Data Results & Data ([facility]) Vital Signs (Past 12 Hours) Vital Signs Temp Pulse Resp BP Pulse Ox 01/28/21 07:52 36.6 C 53 L 18 101/60 95
[2021-01-28] MEDS: DOXYCYCLINE HYCLATE 100 MG CAP PO SCH ×2 (15:18→21:31)
--- NOTE | 2021-01-28 15:26 | Psychiatric Consultation ---
Date of Consultation January 28, 2021 Impression / Recommendations Impression 70-year-old female presenting with delirium in the setting of infection. Patient at this time is still delirious although has been calm without any episodes of agitation. No changes in psychiatric medications required at this time. Mood appears stable. Recommendations: -Continue to treat sources of infection. -No changes in psychiatric medications -Patient is deemed to still be delirious at this time -Psychiatry consult team will continue to follow Psych History Chief Complaint "I am okay they just keep bothering me". History of Present Illness HPI as per psychiatric liaison "Rounded on this patient, she presented pleasant, cooperative and calm. She displayed slowed thought process and oriented to person and place- but was able to recall being discharged earlier in the day. She endorsed getting home and "seeing a man in a suit that was the same color as the wall" so she called the police (later clarified that she did not call the police-her [place] home health aid called her daughter and she was brought to [facility]). She verbalized feeling paranoid and often feels like "Its my imagination but I can see them". Patient did sign an ANNEMARIE for her daughter Carolyn. This Liaison contacted Carolyn for collateral. Carolyn verbalized her frustration with her mother's unknown cause for symptoms. She is concerned that it is related to urologic complications. She stated her mother has been frequently hospitalized starting in 09/23 (hepatic encephalopathy), 07/27 and now her third time in January (UTI's) (January 07, January 16 and January 24). Carolyn stated that her mother frequently wets the bed and recently has had blood in her urine. The patient does see Dr. Keny Watkins for psychiatry whom prescribes her Abilify, clonazepam and Trazodone. Carolyn said that Angelina's visual hallucinations and bizarre behaviors have been very sporadic and only recently. She stated her mother has been stable on her current psychiatric medications for approximately 5 years, her last psych inpatient stay was in 2012 (previous inpatient on [address] [address]). Rounded on patient this morning. She is pleasant and cooperative. She reports that she was just discharged from the hospital, and began "seeing 3 men in her home". She said her daughter became concerned and now she is back in the hospital. She denies any current A/V hallucinations. She reports that her psychiatric medications are effective. She did sign a ANNEMARIE for Dr. Watkins (psychiatrist). She also reports that she lives alone, and her daughter does come and fill her pill organizer for her. She was appreciative of the visit, and it was explained to her that our provider will be seeing her well." Upon evaluation today patient denied any suicidal or homicidal ideation. Stated that her mood has been good and been improving. States that she is in the hospital because she has an infection, although was states that she is feeling fine. Patient is however still experiencing some delirium as she asked to not disturb the girl sleeping next to her despite being in a private room by herself. Allergies Allergy/AdvReac Type Severity Reaction Status Date / Time propoxyphene Allergy Mild Rash Verified 01/26/21 01:47 fentanyl AdvReac Intermediate PANIC Verified 01/26/21 01:47 WANTS TO RUN AND AGGRESSIVE zolpidem AdvReac Intermediate confusion Verified 01/26/21 01:47 methocarbamol AdvReac Mild DELERIUM Verified 01/26/21 01:47 Home Medications Medication Instructions Recorded Confirmed Type albuterol sulfate 90 mcg/actuation 2 puff INHALATION QID PRN 04/27/18 01/26/21 History aerosol inhaler (Ventolin HFA) aripiprazole 2 mg tablet 2 mg PO HS 04/27/18 01/26/21 History ergocalciferol (vitamin D2) 1,250 50,000 units PO TH 04/27/18 01/26/21 History mcg (50,000 unit) capsule famotidine 40 mg tablet 40 mg PO HS 04/27/18 01/26/21 History lamotrigine 100 mg tablet 100 mg PO QAM 04/27/18 01/26/21 History lamotrigine 25 mg tablet 25 mg PO UD 04/27/18 01/26/21 History levothyroxine 88 mcg tablet 88 mcg PO QAM 04/27/18 01/26/21 History nitroglycerin 0.4 mg sublingual 0.4 mg SUBLINGUAL DIRECTED PRN 04/27/18 01/26/21 History tablet (Nitrostat) ondansetron HCl 8 mg tablet 8 mg PO Q8H PRN 04/27/18 01/26/21 History torsemide 20 mg tablet 20 mg PO BID 09/03/18 01/26/21 History montelukast 10 mg tablet 10 mg PO DAILY@1600 06/11/19 01/26/21 History spironolactone 50 mg tablet 50 mg PO BID 09/15/19 01/26/21 History (Aldactone) venlafaxine 75 mg capsule,extended 75 mg PO QAM 09/15/19 01/26/21 History release 24 hr dulaglutide 1.5 mg/0.5 mL 1.5 mg SUBCUT FR 12/22/19 01/26/21 History subcutaneous pen injector (Trulicity) insulin glargine 100 unit/mL (3 15 unit SUBCUT QAM 12/22/19 01/26/21 History mL) subcutaneous pen (Basaglar KwikPen U-100 Insulin) oxybutynin chloride 10 mg 10 mg PO HS 12/22/19 01/26/21 History tablet,extended release 24 hr (Ditropan XL) morphine 15 mg tablet,extended 15 mg PO Q12H 01/16/20 01/26/21 History release metformin 500 mg tablet 1,000 mg PO BID 03/21/20 01/26/21 History metoprolol succinate 50 mg 50 mg PO BID 03/21/20 01/26/21 History tablet,extended release 24 hr rifaximin 550 mg tablet (Xifaxan) 550 mg PO BID 03/21/20 01/26/21 History trazodone 50 mg tablet 100 mg PO HS 03/21/20 01/26/21 History gabapentin 600 mg tablet 600 mg PO BID 01/07/21 01/26/21 History isosorbide mononitrate 30 mg 30 mg PO QAM 01/07/21 01/26/21 History tablet,extended release 24 hr venlafaxine 150 mg 150 mg PO QAM 01/07/21 01/26/21 History capsule,extended release 24 hr clonazepam 0.5 mg tablet 0.5 mg PO TID #0 tab 01/12/21 01/26/21 Rx aspirin 81 mg tablet,delayed 81 mg PO DAILY 01/26/21 01/26/21 History release atorvastatin 80 mg tablet 80 mg PO DAILY 01/26/21 01/26/21 History dulaglutide 3 mg/0.5 mL 3 mg SUBCUT WK 01/26/21 01/26/21 History subcutaneous pen injector (Trulicity) fluticasone propionate 50 2 spray INTRANASAL DAILY 01/26/21 01/26/21 History mcg/actuation nasal spray,suspension fosfomycin tromethamine 3 gram 3 g PO .Q3DAYS 01/26/21 01/26/21 History oral packet lactulose 10 gram/15 mL oral 45 g PO BID 01/26/21 01/26/21 History solution nystatin 100,000 unit/gram topical 1 applic TOPICAL .BID UD 01/26/21 01/26/21 History cream oxycodone 5 mg tablet 5 mg PO Q8 PRN 01/26/21 01/26/21 History pantoprazole 40 mg tablet,delayed 40 mg PO DAILY 01/26/21 01/26/21 History release amoxicillin 875 mg-potassium 1 tab PO BID 5 Days #10 tab 01/27/21 Rx clavulanate 125 mg tablet (Augmentin) Personal History Beliefs That Will Affect Care: None Patient History Medical History Anxiety Bipolar disorder CAD (coronary artery disease) History of multiple PCI's to the RCA with subsequent CABG x1 in 2010 x 1 vessel Most recent cardiac testing-negative DSE in December 2017 Follows w/ Dr. Blackwell and Dr. Lucas Aqtewbr-Bteyi-Vajqw disease follows w/ Dr. Lemus Chronic diastolic CHF (congestive heart failure) Chronic pain syndrome Depression DM type 2 (diabetes mellitus, type 2) IDDM Dyslipidemia Encephalopathy d/c from [facility] 09/20/19 (hepatic encephalopathy) Gastroparesis GERD (gastroesophageal reflux disease) Hypertension Hypothyroidism Irregular heart beat follows Dr. 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 Lucas History of total right knee replacement Hx of cholecystectomy S/P CABG x 1 2010 - single vessel S/P CARLOS (total abdominal hysterectomy) Family History Father Coronary heart disease Brother Coronary heart disease Father Diabetes Mother Diabetes Social History Smoking Status: Never smoker Second Hand Exposure: Yes (DAUGHTER SMOKES); Hx Alcohol Use: No Hx Substance Use: No Preferred Language: Chinese Communication Ability: Effective Director Diversity Required: No Beliefs That Will Affect Care: None marital status: / Current Living Situation: Alone Other Information That Helps Us Care for You: No Feels Safe at Home: Yes Safety Concerns: Feels Safe At This Time Assistive Devices: Walker Physical Exam Psychiatric: Orientation: oriented to person and oriented to place Apperance: appropriately groomed Eye Contact: good eye contact Motor Behavior: no abnormal motor movements Speech: normal rate/rhythm/volume of speech Affect: euthymic affect Mood: no depressed mood and no dysphoric mood Thought Process: + concrete thought process Thought Content: + cognitive distortions Suicidal Thoughts: denies suicidal thoughts Homicidal Thoughts: denies homicidal thoughts Hallucinations: + visual russell llucinations Cognition: attention grossly intact Estimated Intelligence: consistent with education level Insight: + limited insight Judgement: + limited judgement Vital Signs (Past 24 Hours): Last Vital Signs Temp 36.6 C 01/28/21 07:52 Pulse 53 L 01/28/21 07:52 Resp 18 01/28/21 07:52 BP 101/60 01/28/21 07:52 Pulse Ox 95 01/28/21 07:52 Constitutional: WD/WN, vitals as above well developed, well nourished and + morbidly obese; no acute distress Eyes: no conjunctival abnormality ENMT: external ear and nose normal, oropharynx normal Ears: no hearing impairment Neck: trachea midline, no thyromegaly trachea midline Respiratory: normal respiratory effort, lungs clear to auscultation normal respiratory effort; no respiratory distress and no labored breathing Cardiovascular: RRR, no murmur, no edema Rate/Rhythm: regular rate and regular rhythm Gastrointestinal (Abdomen): Inspection/Auscultation: + abdomen distended (Chronic) and normal bowel sounds Percussion/Palpation: abdomen soft; abdomen nontender Musculoskeletal: no cyanosis or clubbing, extremities motor strength 5/5 Skin: + wound (Multiple skin puncture wound on both arms, with surrounding erythema); no rashes Neurologic: moves all extremities Review of Systems All systems reviewed & are unremarkable except as noted in HPI & below Results & Data ([facility]) Medications Administered Acetaminophen (Acetaminophen 325 Mg Tab) 650 mg PO Q4H PRN PRN Reason: pain/fever Stop: 02/26/21 17:35 Last Admin: 01/28/21 15:09 Dose: 650 mg Documented by: [id number] Aripiprazole (Aripiprazole 1 Mg/Ml Oral Soln 150 Ml Btl) 2 mg PO HS [facility] Stop: 02/26/21 20:59 Last Admin: 01/27/21 20:00 Dose: 2 mg Documented by: [id number] Aspirin (Aspirin 81 Mg Ectab) 81 mg PO DAILY [facility] Stop: 02/27/21 08:59 Last Admin: 01/28/21 09:01 Dose: 81 mg Documented by: [id number] Atorvastatin Calcium (Atorvastatin 40 Mg Tab) 80 mg PO DAILY [facility] Stop: 02/27/21 08:59 Last Admin: 01/28/21 09:01 Dose: 80 mg Documented by: [id number] Clonazepam (Clonazepam 0.5 Mg Tab) 0.5 mg PO TID [facility] Stop: 02/26/21 20:59 Last Admin: 01/28/21 15:09 Dose: 0.5 mg Documented by: [id number] Admin: 01/28/21 09:06 Dose: 0.5 mg Documented by: [id number] Admin: 01/27/21 20:44 Dose: 0.5 mg Documented by: [id number] Doxycycline Hyclate (Doxycycline Hyclate 100 Mg Cap) 100 mg PO BID [facility]; Protocol Stop: 02/04/21 13:44 Last Admin: 01/28/21 15:18 Dose: 100 mg Documented by: [id number] Famotidine (Famotidine 40 Mg Tablet) 40 mg PO HS [facility] Stop: 02/26/21 20:59 Last Admin: 01/27/21 19:59 Dose: 40 mg Documented by: [id number] Fluticasone Propionate (Fluticasone Propionate Na Spr 16 Gm Btl) 2 sprays MADHURI DAILY [facility] Stop: 02/27/21 08:59 Last Admin: 01/28/21 09:18 Dose: Not Given Documented by: [id number] Gabapentin (Gabapentin 600 Mg Tab) 600 mg PO BID [facility] Stop: 02/26/21 20:59 Last Admin: 01/28/21 09:03 Dose: 600 mg Documented by: [id number] Admin: 01/27/21 19:59 Dose: 600 mg Documented by: [id number] Heparin Sodium (Porcine) (Heparin Sod 5,000 Unit/0.5 Ml Vial) 7,500 units SQ Q8 [facility] Stop: 02/26/21 21:59 Last Admin: 01/28/21 15:10 Dose: 7,500 units Documented by: [id number] Admin: 01/28/21 05:45 Dose: 7,500 units Documented by: [id number] Admin: 01/27/21 20:45 Dose: 7,500 units Documented by: [id number] Ampicillin Sodium 2,000 mg/ (Sodium Chloride) 100 mls @ 200 mls/hr IV Q6H [facility] Stop: 02/06/21 18:59 Last Infusion: 01/28/21 13:22 Dose: 0 mls/hr Documented by: [id number] Admin: 01/28/21 12:34 Dose: 200 mls/hr Documented by: [id number] Infusion: 01/28/21 09:45 Dose: 0 mls/hr Documented by: [id number] Admin: 01/28/21 08:55 Dose: 200 mls/hr Documented by: [id number] Infusion: 01/28/21 01:30 Dose: 0 mls/hr Documented by: [id number] Admin: 01/28/21 00:23 Dose: 100 mls/hr Documented by: [id number] Infusion: 01/27/21 20:23 Dose: 0 mls/hr Documented by: [id number] Admin: 01/27/21 19:52 Dose: 200 mls/hr Documented by: [id number] Insulin Aspart (Insulin Aspart 100 Units/Ml 3 Ml Pen) 0 units SC ACHS [facility] Stop: 02/26/21 20:59 Last Admin: 01/28/21 13:15 Dose: 5 units Documented by: [id number] Cosigned by: [id number] Admin: 01/28/21 09:10 Dose: 5 units Documented by: [id number] Cosigned by: [id number] Admin: 01/27/21 20:44 Dose: 2 units Documented by: [id number] Cosigned by: [id number] Insulin Glargine (Insulin Glargine Solostar 100 Units/Ml 3 Ml Pen) [facility] [place]: 02/27/21 08:59 Last Admin: 01/28/21 09:08 Dose: 15 units Documented by: [id number] Cosigned by: [id number] Isosorbide Mononitrate (Isosorbide [place] Extended Rel 30 Mg Tabcr) 30 [facility] [place] Stop: 02/27/21 08:59 Last Admin: 01/28/21 09:02 Dose: 30 mg Documented by: [id number] Lactulose (Lactulose Syrup 10 Gm/15 Ml Btl 960 Ml) 45 gm PO BID [facility] Stop: 02/26/21 20:59 Last Admin: 01/28/21 09:18 Dose: Not Given Documented by: [id number] Admin: 01/27/21 20:00 Dose: Not Given Documented by: [id number] Lamotrigine (Lamotrigine 25 Mg Tab) 25 mg PO [facility] Stop: 02/27/21 08:59 Last Admin: 01/28/21 09:01 Dose: 25 mg Documented by: [id number] Lamotrigine (Lamotrigine 100 Mg Tab) 100 mg PO [facility] Stop: 02/27/21 08:59 Last Admin: 01/28/21 09:01 Dose: 100 mg Documented by: [id number] Lamotrigine (Lamotrigine 25 Mg Tab) 50 mg PO HS [facility] Stop: 02/26/21 20:59 Last Admin: 01/27/21 19:59 Dose: 50 mg Documented by: [id number] Levothyroxine Sodium (Levothyroxine Sodium 88 Mcg Tablet) 88 mcg PO DAILYBB [facility] Stop: 02/27/21 06:29 Last Admin: 01/28/21 05:45 Dose: 88 mcg Documented by: [id number] Metoprolol Succinate (Metoprolol Succ 50mg Ext Rel Tab) 50 mg PO BID [facility] Stop: 02/26/21 20:59 Last Admin: 01/28/21 09:04 Dose: Not Given Documented by: [id number] Admin: 01/27/21 19:59 Dose: 50 mg Documented by: [id number] Morphine Sulfate (Morphine Sulfate Cr 15 Mg Tabcr) 15 mg PO Q12H [facility] Stop: 02/10/21 17:59 Last Admin: 01/28/21 05:45 Dose: 15 mg Documented by: [id number] Admin: 01/27/21 19:53 Dose: 15 mg Documented by: [id number] Nystatin (Nystatin Cr 15 Gm Tube) 1 appln EXT BID [facility] Stop: 02/26/21 20:59 Last Admin: 01/28/21 09:06 Dose: 1 appln Documented by: [id number] Admin: 01/27/21 19:58 Dose: 1 appln Documented by: [id number] Oxybutynin Chloride (Oxybutynin Chloride Xl 5 Mg Tabcr) [address] [facility] Stop: 02/26/21 20:59 Last Admin: 01/27/21 20:00 Dose: 10 mg Documented by: [id number] Pantoprazole Sodium (Pantoprazole 40 Mg Tab) 40 mg PO DAILY [facility] Stop: 02/27/21 08:59 Last Admin: 01/28/21 09:02 Dose: 40 mg Documented by: [id number] Rifaximin (Rifaximin 550 Mg Tablet) 550 mg PO BID [facility] Stop: 02/26/21 20:59 Last Admin: 01/28/21 09:02 Dose: 550 mg Documented by: [id number] Admin: 01/27/21 19:59 Dose: 550 mg Documented by: [id number] Trazodone HCl (Trazodone Hcl 100 Mg Tab) [address] [facility] Stop: 02/26/21 20:59 Last Admin: 01/27/21 19:59 Dose: 100 mg Documented by: [id number] Venlafaxine HCl (Venlafaxine Hcl Xr 75 Mg Capxr) 75 mg PO QAM [facility] Stop: 02/27/21 08:59 Last Admin: 01/28/21 09:02 Dose: 75 mg Documented by: [id number] Venlafaxine HCl (Venlafaxine Hcl Xr 150 Mg Capxr) 150 mg PO QAM [facility] Stop: 02/27/21 08:59 Last Admin: 01/28/21 09:02 Dose: 150 mg Documented by: [id number] Coding Level of Care Code 77043 U Intl Hosp Care Lvl 2
[2021-01-28] MEDS: MONTELUKAST SODIUM 10 MG TABLET PO SCH (15:37)
[2021-01-28] MEDS: oxyCODONE HCL IR 5 MG TAB (IMMEDIATE RELEASE) PO PRN (21:25)
[2021-01-28] MEDS: OXYBUTYNIN CHLORIDE XL 5 MG TABCR PO SCH (21:30)
[2021-01-28] MEDS: traZODone HCL 100 MG TAB PO SCH (21:31)
[2021-01-28] MEDS: FAMOTIDINE 40 MG TABLET PO SCH (21:31)
[2021-01-28] MEDS: ARIPIprazole 1 MG/ML ORAL SOLN 150 ML BTL PO SCH (21:31)
[2021-01-29] MEDS: AMPICILLIN 2,000 MG in SODIUM CHLOR 0.9% AD-VAN 100 ML IV SCH ×4 (00:58→18:08)
[2021-01-29] MEDS: LEVOTHYROXINE SODIUM 88 MCG TABLET PO SCH (05:41)
[2021-01-29] MEDS: HEPARIN SOD 5,000 UNIT/0.5 ML VIAL SQ SCH ×3 (05:41→21:55)
[2021-01-29] MEDS: MoRPHine SULFATE CR 15 MG TABCR PO SCH ×2 (05:41→18:08)
[2021-01-29] MEDS: oxyCODONE HCL IR 5 MG TAB (IMMEDIATE RELEASE) PO PRN ×2 (05:41→21:53)
[2021-01-29 07:36] LABS: Albumin Level 3.3 gm/dl (3.4-5.0); BUN Creatinine Ratio 9.7 (10-20); Creatinine Clr Calc Pharmacy 62.7 ml/min; Est GFR (African American) 63.3 ml/min; Est GFR (Non-African American) 54.6 ml/min; Potassium 3.6 mmol/L (3.5-5.1)
[2021-01-29 07:41] LABS: Bilirubin,Total 0.7 mg/dl (0.2-1); Globulin 3.4 gm/dl (2.5-4.0); Total Protein 6.7 gm/dl (6.4-8.2)
[2021-01-29] MEDS: FLUTICASONE PROPIONATE NA SPR 16 GM BTL NAE SCH (08:33)
[2021-01-29] MEDS: LACTULOSE SYRUP 10 GM/15 ML BTL 960 ML PO SCH ×3 (08:34→21:53)
[2021-01-29] MEDS: clonazePAM 0.5 MG TAB PO SCH ×3 (08:49→21:53)
[2021-01-29] MEDS: DOXYCYCLINE HYCLATE 100 MG CAP PO SCH ×2 (08:49→21:56)
[2021-01-29] MEDS: rifAXIMin 550 MG TABLET PO SCH ×2 (08:50→21:55)
[2021-01-29] MEDS: VENLAFAXINE HCL XR 75 MG CAPXR PO SCH (08:50)
[2021-01-29] MEDS: ATORVASTATIN 40 MG TAB PO SCH (08:50)
[2021-01-29] MEDS: lamoTRIgine 25 MG TAB PO SCH ×2 (08:50→21:57)
[2021-01-29] MEDS: ISOSORBIDE MONO EXTENDED REL 30 MG TABCR PO SCH (08:50)
[2021-01-29] MEDS: PANTOprazole 40 MG TAB PO SCH (08:50)
[2021-01-29] MEDS: VENLAFAXINE HCL XR 150 MG CAPXR PO SCH (08:50)
[2021-01-29] MEDS: lamoTRIgine 100 MG TAB PO SCH (08:50)
[2021-01-29] MEDS: GABAPENTIN 600 MG TAB PO SCH ×2 (08:50→21:57)
[2021-01-29] MEDS: ASPIRIN 81 MG ECTAB PO SCH (08:50)
[2021-01-29] MEDS: NYSTATIN CR 15 GM TUBE EXT SCH ×2 (08:50→21:52)
[2021-01-29] MEDS: INSULIN GLARGINE SOLOSTAR 100 UNITS/ML 3 ML PEN SQ SCH (08:51)
[2021-01-29] MEDS: METOPROLOL SUCC 50MG EXT REL TAB PO SCH ×2 (08:51→21:56)
[2021-01-29] MEDS: INSULIN ASPART 100 UNITS/ML 3 ML PEN SC SCH ×4 (08:58→21:58)
[2021-01-29] MEDS: FLUCONAZOLE 100 MG TAB PO SCH (13:07)
[2021-01-29] MEDS ORDERED: OLANZapine 10 MG/2.1 ML SDV IM PRN (16:49)
[2021-01-29] MEDS: MONTELUKAST SODIUM 10 MG TABLET PO SCH (16:55)
--- NOTE | 2021-01-29 19:11 | Hospitalist Progress Note ---
Date of Service January 29, 2021 Assessment & Plan (1) Altered mental status: Plan: Hallucination/delusion: Metabolic encephalopathy in the setting of urine tract infection, Patient mental status continues to worsen-hallucination, confusion, Psych consulted to assess medication regimen-believes her mental status change possibly secondary to urine tract infection Patient is on IV ampicillin for UTI, Ammonia level within normal limit continue lactulose, monitor LFTs which has been stable so far Acute renal failure on CKD stage III: Resolved, renal function back to baseline Recurrent UTI, chronic urinary retention Daughter feels patient urinary retention, UTI possible causing her decline and confusion Urology consult appreciated, patient noted to have post void urine more than 700 Gallagher catheter placed History of [place] cirrhosis: Liver function within normal limit-follow daily labs Continue lactulose rifaximin Type 2 diabetes: Continue insulin sliding scale Diastolic CHF chronic Stable volume status diuretics will be resumed DVT prophylaxis subcu heparin Disposition: Lives at home has 24-hour caregiver through aid service Daughter Carolyn involved very closely for her care, updated at bedside PT OT evaluation requested Admission and Anticipated Discharge Date Admission Date: January 27, 2021 Subjective Patient is more confused hallucinating encephalopathic today, Seeing people walking around, thinks she is moving her house, Unable to answer appropriate questions, daughter present at bedside, per Nursing patient was very disoriented overnight, having constant visual hallucination, No fever, vitals been stable Review of Systems Constitutional: as per Subjective / HPI; no fever and no weakness Cardiovascular: no chest pain, no palpitations and no edema Gastrointestinal: no abdominal pain, no bloating, no nausea and no vomiting Genitourinary: no dysuria, no difficulty urinating, no urinary frequency and no urinary hesitancy Neurologic: as per Subjective / HPI Psychiatric: + hallucinations, + visual hallucinations and + problem reported (Hallucination, disorientation) Physical Exam Constitutional: WD/WN, vitals as above + morbidly obese, + altered mental status (Hallucinating/confused) and + lethargic ENMT: external ear and nose normal, oropharynx normal Neck: trachea midline, no thyromegaly Respiratory: normal respiratory effort, lungs clear to auscultation Cardiovascular: RRR, no murmur, no edema Gastrointestinal (Abdomen): Inspection/Auscultation: + abdomen distended (Chronic) and normal bowel sounds Percussion/Palpation: abdomen soft; abdomen nontender Musculoskeletal: no cyanosis or clubbing, extremities motor strength 5/5 Skin: + wound (Multiple skin puncture wound on both arms, with surrounding erythema) Neurologic: Disoriented/confused Psychiatric: Hallucinations: + visual hallucinations Results & Data Results & Data ([facility]) Vital Signs (Past 12 Hours) Vital Signs Temp Pulse Resp BP BP Pulse Ox 01/29/21 15:38 36.7 C 62 20 118/77 94 01/29/21 08:48 36.4 C L 56 L 18 124/62 98
[2021-01-29] MEDS: FAMOTIDINE 40 MG TABLET PO SCH (21:55)
[2021-01-29] MEDS: traZODone HCL 100 MG TAB PO SCH (21:57)
[2021-01-29] MEDS: OXYBUTYNIN CHLORIDE XL 5 MG TABCR PO SCH (21:57)
[2021-01-29] MEDS: ARIPIprazole 1 MG/ML ORAL SOLN 150 ML BTL PO SCH (21:57)
[2021-01-29] MEDS: SPIRONOLACTONE 25 MG TAB PO SCH (22:02)
[2021-01-30] MEDS: AMPICILLIN 2,000 MG in SODIUM CHLOR 0.9% AD-VAN 100 ML IV SCH ×3 (00:04→14:00)
[2021-01-30] MEDS: LEVOTHYROXINE SODIUM 88 MCG TABLET PO SCH (06:07)
[2021-01-30] MEDS: MoRPHine SULFATE CR 15 MG TABCR PO SCH ×2 (06:07→18:27)
[2021-01-30] MEDS: HEPARIN SOD 5,000 UNIT/0.5 ML VIAL SQ SCH ×3 (06:08→21:27)
[2021-01-30] MEDS: NYSTATIN CR 15 GM TUBE EXT SCH ×2 (07:34→20:46)
[2021-01-30 08:51] LABS: Albumin Level 3.5 gm/dl (3.4-5.0); BUN Creatinine Ratio 8.4 (10-20); Calcium 9.2 mg/dl (8.5-10.1); Creatinine Clr Calc Pharmacy 70.2 ml/min; Est GFR (African American) 72.6 ml/min; Est GFR (Non-African American) 62.6 ml/min; Potassium 3.6 mmol/L (3.5-5.1)
[2021-01-30] MEDS: VENLAFAXINE HCL XR 75 MG CAPXR PO SCH (08:52)
[2021-01-30] MEDS: VENLAFAXINE HCL XR 150 MG CAPXR PO SCH (08:52)
[2021-01-30] MEDS: SPIRONOLACTONE 25 MG TAB PO SCH (08:52)
[2021-01-30] MEDS: clonazePAM 0.5 MG TAB PO SCH ×3 (08:52→20:44)
[2021-01-30] MEDS: DOXYCYCLINE HYCLATE 100 MG CAP PO SCH ×2 (08:53→20:44)
[2021-01-30] MEDS: ISOSORBIDE MONO EXTENDED REL 30 MG TABCR PO SCH (08:53)
[2021-01-30] MEDS: ATORVASTATIN 40 MG TAB PO SCH (08:53)
[2021-01-30] MEDS: FLUTICASONE PROPIONATE NA SPR 16 GM BTL NAE SCH (08:53)
[2021-01-30] MEDS: GABAPENTIN 600 MG TAB PO SCH ×2 (08:53→20:44)
[2021-01-30 08:54] LABS: Albumin Globulin Ratio 0.8 (0.9-2); Bilirubin,Total 0.7 mg/dl (0.2-1); Globulin 4.2 gm/dl (2.5-4.0); Total Protein 7.7 gm/dl (6.4-8.2)
[2021-01-30] MEDS: METOPROLOL SUCC 50MG EXT REL TAB PO SCH ×2 (08:54→20:44)
[2021-01-30] MEDS: PANTOprazole 40 MG TAB PO SCH (08:55)
[2021-01-30] MEDS: rifAXIMin 550 MG TABLET PO SCH ×2 (08:56→20:44)
[2021-01-30] MEDS: lamoTRIgine 100 MG TAB PO SCH (08:56)
[2021-01-30] MEDS: lamoTRIgine 25 MG TAB PO SCH ×2 (08:57→20:45)
[2021-01-30] MEDS: ASPIRIN 81 MG ECTAB PO SCH (08:57)
[2021-01-30] MEDS: LACTULOSE SYRUP 10 GM/15 ML BTL 960 ML PO SCH ×2 (08:58→20:46)
[2021-01-30] MEDS: FLUCONAZOLE 100 MG TAB PO SCH (08:58)
[2021-01-30] MEDS: INSULIN GLARGINE SOLOSTAR 100 UNITS/ML 3 ML PEN SQ SCH (09:02)
[2021-01-30] MEDS: INSULIN ASPART 100 UNITS/ML 3 ML PEN SC SCH ×4 (10:06→21:26)
--- NOTE | 2021-01-30 15:22 | Hospitalist Progress Note ---
Date of Service January 30, 2021 Assessment & Plan (1) Altered mental status: Plan: Hallucination/delusion: metabolic encephalopathy -not sure of the etiology Patient mental status continues to worsen-hallucination, confusion, Psych consulted to assess medication regimen-believes her mental status change possibly secondary to urine tract infection Ammonia level within normal limit continue lactulose, monitor LFTs which has been stable so far doubt hepatic cause Liyah UTI ; urine culture on 01/25 -liyah started on Diflucan repeat urine culture this admission -no growth , appreciate input from ID recommends blood culture -ordered no antibiotics needed as recent urine cultures was negative growth Acute renal failure on CKD stage III: Resolved, monitor BMP Recurrent UTI, chronic urinary retention Daughter feels patient urinary retention, UTI possible causing her decline and confusion Urology consult appreciated, patient noted to have post void urine more than 700 Mejia catheter placed per urology : will need cystoscopy evaluation in clinc History of [place] cirrhosis: Liver function within normal limit-follow daily labs Continue lactulose rifaximin titrate lactulose dose to 2-3 soft bowel movements a day Type 2 diabetes: Continue insulin sliding scale Diastolic CHF chronic Stable volume status diuretics will be resumed DVT prophylaxis subcu heparin Disposition: Lives at home has 24-hour caregiver through aid service Daughter Carolyn involved very closely for her care, updated PT OT evaluation requested Admission and Anticipated Discharge Date Admission Date: January 27, 2021 Subjective remains confused , encephalopathic oriented to person , very poor appetite per nursing , was sleeping most part of the day , no fever or chills has mejia catheter , draining clear yellow urine Review of Systems Constitutional: as per Subjective / HPI; no fever and no weakness Cardiovascular: no chest pain, no palpitations and no edema Gastrointestinal: no abdominal pain, no bloating, no nausea and no vomiting Genitourinary: no dysuria, no difficulty urinating, no urinary frequency and no urinary hesitancy Neurologic: as per Subjective / HPI Psychiatric: + change in appetite, + confusion and + visual hallucinations Physical Exam Constitutional: WD/WN, vitals as above + morbidly obese, + altered mental status (Hallucinating/confused) and + lethargic ENMT: external ear and nose normal, oropharynx normal Neck: trachea midline, no thyromegaly Respiratory: normal respiratory effort, lungs clear to auscultation Cardiovascular: RRR, no murmur, no edema Gastrointestinal (Abdomen): Inspection/Auscultation: + abdomen distended (Chronic) and normal bowel sounds Percussion/Palpation: abdomen soft; abdomen nontender Musculoskeletal: no cyanosis or clubbing, extremities motor strength 5/5 Skin: + wound (Multiple skin puncture wound on both arms , imprved ) Psychiatric: Orientation: alert and oriented x 3 Eye Contact: + fair eye contact Affect: + anxious affect Suicidal Thoughts: + reports suicidal thoughts Hallucinations: + visual hallucinations Results & Data Results & Data ([facility]) Vital Signs (Past 12 Hours) Vital Signs Temp Pulse Resp BP Pulse Ox 01/30/21 07:28 36.9 C 68 18 143/64 H 96
[2021-01-30] MEDS: MONTELUKAST SODIUM 10 MG TABLET PO SCH (17:00)
[2021-01-30] MEDS: ARIPIprazole 1 MG/ML ORAL SOLN 150 ML BTL PO SCH (20:44)
[2021-01-30] MEDS: oxyCODONE HCL IR 5 MG TAB (IMMEDIATE RELEASE) PO PRN (20:44)
[2021-01-30] MEDS: OXYBUTYNIN CHLORIDE XL 5 MG TABCR PO SCH (20:45)
[2021-01-30] MEDS: FAMOTIDINE 40 MG TABLET PO SCH (20:45)
[2021-01-30] MEDS: traZODone HCL 100 MG TAB PO SCH (20:46)
[2021-01-31] MEDS: MoRPHine SULFATE CR 15 MG TABCR PO SCH ×2 (05:45→18:00)
[2021-01-31] MEDS: HEPARIN SOD 5,000 UNIT/0.5 ML VIAL SQ SCH ×3 (05:45→20:05)
[2021-01-31] MEDS: LEVOTHYROXINE SODIUM 88 MCG TABLET PO SCH (05:45)
[2021-01-31] MEDS: ASPIRIN 81 MG ECTAB PO SCH ×2 (08:06→08:10)
[2021-01-31] MEDS: ATORVASTATIN 40 MG TAB PO SCH (08:06)
[2021-01-31] MEDS: VENLAFAXINE HCL XR 75 MG CAPXR PO SCH (08:07)
[2021-01-31] MEDS: METOPROLOL SUCC 50MG EXT REL TAB PO SCH ×2 (08:08→20:04)
[2021-01-31] MEDS: lamoTRIgine 25 MG TAB PO SCH ×2 (08:08→20:04)
[2021-01-31] MEDS: SPIRONOLACTONE 25 MG TAB PO SCH (08:09)
[2021-01-31] MEDS: PANTOprazole 40 MG TAB PO SCH (08:09)
[2021-01-31] MEDS: rifAXIMin 550 MG TABLET PO SCH ×2 (08:09→20:05)
[2021-01-31] MEDS: FLUCONAZOLE 100 MG TAB PO SCH (08:10)
[2021-01-31] MEDS: lamoTRIgine 100 MG TAB PO SCH ×2 (08:10→09:30)
[2021-01-31] MEDS: GABAPENTIN 600 MG TAB PO SCH ×2 (08:10→20:04)
[2021-01-31] MEDS: DOXYCYCLINE HYCLATE 100 MG CAP PO SCH ×2 (08:10→20:03)
[2021-01-31] MEDS: FLUTICASONE PROPIONATE NA SPR 16 GM BTL NAE SCH (08:10)
[2021-01-31] MEDS: LACTULOSE SYRUP 10 GM/15 ML BTL 960 ML PO SCH ×2 (08:11→20:04)
[2021-01-31] MEDS: ISOSORBIDE MONO EXTENDED REL 30 MG TABCR PO SCH (08:11)
[2021-01-31] MEDS: NYSTATIN CR 15 GM TUBE EXT SCH ×2 (08:14→20:04)
[2021-01-31 09:21] LABS: Albumin Level 3.4 gm/dl (3.4-5.0); BUN Creatinine Ratio 7.5 (10-20); Calcium 9.4 mg/dl (8.5-10.1); Creatinine Clr Calc Pharmacy 69.5 ml/min; Est GFR (African American) 71.7 ml/min; Est GFR (Non-African American) 61.8 ml/min; Potassium 3.5 mmol/L (3.5-5.1)
[2021-01-31 09:23] LABS: Albumin Globulin Ratio 0.9 (0.9-2); Bilirubin,Total 0.7 mg/dl (0.2-1); Globulin 3.7 gm/dl (2.5-4.0); Total Protein 7.1 gm/dl (6.4-8.2)
[2021-01-31] MEDS: clonazePAM 0.5 MG TAB PO SCH ×3 (09:30→20:03)
[2021-01-31] MEDS: VENLAFAXINE HCL XR 150 MG CAPXR PO SCH (09:30)
[2021-01-31] MEDS: INSULIN GLARGINE SOLOSTAR 100 UNITS/ML 3 ML PEN SQ SCH (09:31)
[2021-01-31] MEDS: INSULIN ASPART 100 UNITS/ML 3 ML PEN SC SCH ×4 (09:32→22:25)
[2021-01-31] MEDS: oxyCODONE HCL IR 5 MG TAB (IMMEDIATE RELEASE) PO PRN (14:36)
[2021-01-31] MEDS: MONTELUKAST SODIUM 10 MG TABLET PO SCH (18:29)
--- NOTE | 2021-01-31 19:08 | Hospitalist Progress Note ---
Date of Service January 31, 2021 Assessment & Plan (1) GONZALEZ (nonalcoholic steatohepatitis): (2) Altered mental status: (3) Candidal UTI (urinary tract infection): Plan: (1) Altered mental status: Metabolic encephalopathy vs acute urinary retention vs UTI vs other etiology Psy evaluated and advised no change in Psy meds. NH3 level normal, doubt hepatic cause, c/w home dose of lactulose and rifaximin Patient stable/minimally improved today - AOx2, easy to re-orient. 2. Liyah UTI U Cx +ve for Liyah, not enterococcus (which has been positive in the past). ID consulted, suggested DC'ing of ampicillin, ordering Bl Cx for fungi C/w fluconazole. 3. Acute renal failure on CKD stage III: Resolved, monitor BMP 4. Chronic urinary retention Urology on board: patient noted to have post void urine more than 700 ml Gallagher catheter placed per urology : will need cystoscopy evaluation in clinic. 5. History of [place] cirrhosis: Liver function within normal limit-follow daily labs Continue lactulose, rifaximin titrate lactulose dose to 2-3 soft bowel movements a day 6. Type 2 diabetes: Continue insulin sliding scale 7. Diastolic CHF chronic Stable volume status diuretics will be resumed 8. DVT prophylaxis - subcu heparin Disposition: Lives at home has 24-hour caregiver through aid service Daughter Carolyn involved very closely for her care, updated PT/OT recommended HH PT and continued ambulation while inpatient. Admission and Anticipated Discharge Date Admission Date: January 27, 2021 Subjective Patient was lying semi-upright in bed, NAD, on RA. Patient denies Headache, Dizziness, Fever, Chills, Sore throat, Cough, Chest pain, palpitations, SOB, Belly pain, pain/burning while passing urine. Per RN, she was talking to self in AM/no issues overnight with the patient/ Pt is easy to reorient. Physical Exam Physical Exam: GENERAL: Alert and oriented x2 (Person and time). NAD, on RA. HEENT: No pallor, no icterus. Pupils equal, round and reactive to light. Oral mucosa moist. NECK: No JVD, no neck masses. HEART: S1 and S2 heard. Regular rate and rhythm. No murmur, no gallop. RESPIRATORY SYSTEM: Normal AP diameter. No accessory muscle use. No wheezing, no crackles. ABDOMEN: Soft, bowel sounds present, nontender, no distention. CENTRAL NERVOUS SYSTEM: Alert and oriented x2. No facial droop. Speech is clear. Obeys simple commands. Moves extremities. EXTREMITIES: No edema, no erythema seen. Results & Data Results & Data ([facility]) Vital Signs (Past 12 Hours) Vital Signs Temp Pulse Resp BP Pulse Ox 01/31/21 15:46 36.9 C 74 16 117/70 90 01/31/21 07:43 36.5 C 61 16 143/81 H 91
[2021-01-31] MEDS: ARIPIprazole 1 MG/ML ORAL SOLN 150 ML BTL PO SCH (20:03)
[2021-01-31] MEDS: FAMOTIDINE 40 MG TABLET PO SCH (20:04)
[2021-01-31] MEDS: OXYBUTYNIN CHLORIDE XL 5 MG TABCR PO SCH (20:05)
[2021-01-31] MEDS: traZODone HCL 100 MG TAB PO SCH (20:05)
[2021-02-01] MEDS: HEPARIN SOD 5,000 UNIT/0.5 ML VIAL SQ SCH ×2 (06:27→14:04)
[2021-02-01] MEDS: MoRPHine SULFATE CR 15 MG TABCR PO SCH (06:27)
[2021-02-01] MEDS: LEVOTHYROXINE SODIUM 88 MCG TABLET PO SCH (06:28)
[2021-02-01] MEDS: lamoTRIgine 100 MG TAB PO SCH ×2 (08:01→09:04)
[2021-02-01] MEDS: VENLAFAXINE HCL XR 75 MG CAPXR PO SCH ×2 (08:01→09:04)
[2021-02-01] MEDS: VENLAFAXINE HCL XR 150 MG CAPXR PO SCH ×2 (08:01→09:04)
[2021-02-01] MEDS: ERGOCALCIFEROL 50,000 UNITS 1250 MCG CAP PO SCH ×2 (08:01→09:03)
[2021-02-01] MEDS: ASPIRIN 81 MG ECTAB PO SCH ×2 (08:02→09:03)
[2021-02-01] MEDS: ATORVASTATIN 40 MG TAB PO SCH ×2 (08:02→09:03)
[2021-02-01] MEDS: FLUCONAZOLE 100 MG TAB PO SCH ×2 (08:02→09:03)
[2021-02-01] MEDS: SPIRONOLACTONE 25 MG TAB PO SCH ×2 (08:02→09:04)
[2021-02-01] MEDS: lamoTRIgine 25 MG TAB PO SCH ×2 (08:02→09:04)
[2021-02-01] MEDS: PANTOprazole 40 MG TAB PO SCH ×2 (08:02→09:04)
[2021-02-01] MEDS: ISOSORBIDE MONO EXTENDED REL 30 MG TABCR PO SCH ×2 (08:02→09:04)
[2021-02-01] MEDS: rifAXIMin 550 MG TABLET PO SCH ×2 (08:03→09:04)
[2021-02-01] MEDS: DOXYCYCLINE HYCLATE 100 MG CAP PO SCH ×2 (08:03→09:03)
[2021-02-01] MEDS: FLUTICASONE PROPIONATE NA SPR 16 GM BTL NAE SCH (08:04)
[2021-02-01] MEDS: METOPROLOL SUCC 50MG EXT REL TAB PO SCH (08:04)
[2021-02-01] MEDS: GABAPENTIN 600 MG TAB PO SCH ×2 (08:05→09:03)
[2021-02-01] MEDS: LACTULOSE SYRUP 10 GM/15 ML BTL 960 ML PO SCH ×2 (08:06→09:04)
[2021-02-01] MEDS: INSULIN GLARGINE SOLOSTAR 100 UNITS/ML 3 ML PEN SQ SCH ×2 (08:16→09:03)
[2021-02-01] MEDS: NYSTATIN CR 15 GM TUBE EXT SCH ×2 (08:16→09:04)
[2021-02-01] MEDS: clonazePAM 0.5 MG TAB PO SCH ×3 (08:17→14:04)
[2021-02-01] MEDS: INSULIN ASPART 100 UNITS/ML 3 ML PEN SC SCH ×2 (09:02→13:59)
[2021-02-01 10:03] LABS: Albumin Level 3.3 gm/dl (3.4-5.0); BUN Creatinine Ratio 6.7 (10-20); Calcium 8.9 mg/dl (8.5-10.1); Est GFR (African American) 73.6 ml/min; Est GFR (Non-African American) 63.5 ml/min; Potassium 3.6 mmol/L (3.5-5.1)
[2021-02-01 10:05] LABS: Albumin Globulin Ratio 0.9 (0.9-2); Bilirubin,Total 0.8 mg/dl (0.2-1); Globulin 3.8 gm/dl (2.5-4.0); Total Protein 7.1 gm/dl (6.4-8.2)
[2021-02-01] MEDS ORDERED: FLUCONAZOLE 100 MG TAB PO ONE (15:55)
--- NOTE | 2021-02-01 15:58 | Discharge Summary ---
Date of Service February 01, 2021 Admission HPI Per Admitting Provider CHIEF COMPLAINT: Abdominal discomfort. HISTORY OF PRESENT ILLNESS: This is a 70-year-old female with past medical history significant for type 2 diabetes, liver cirrhosis, history of hepatic encephalopathy, hypothyroidism, diabetic gastroparesis, hypertension, chronic diastolic CHF, CAD status post stent, moderate aortic stenosis, liver cirrhosis, portal hypertensive gastropathy, GERD, narcotic bowel syndrome, fatty liver, urinary incontinence Aklsomv-Vckju-Volbn disease, peroneal muscle atrophy, history of thrombocytopenia, bipolar 1 disorder. The patient lives alone at home and she has caregivers at home, on regular diet. Presents because the patient states she was confused and having abdominal discomfort and found to have a UTI. The patient has some headache. Denies any blurred visions. Complains of some ear pain in the right ear. No runny nose, no sore throat, no cough, no fevers, no chest pain, no shortness of breath, no nausea, no abdominal pain. Says she was not able to micturate at home and she has to straight cath in the ER. Denies any hematuria. Bowels are moving okay and she denies any blood in stools or black stools. No swelling in the legs, no rash. Currently, resting comfortably and hemodynamically stable. ALLERGIES: PROPOXYPHENE, FENTANYL, ZOLPIDEM, METHOCARBAMOL. PAST MEDICAL HISTORY: As mentioned above. PAST SURGICAL HISTORY: Left heart catheterization, status post stent placement, right knee arthroplasty, CABG, colonoscopy, EGD, EGD with endoscopic ultrasound, appendectomy, cholecystectomy, total abdominal hysterectomy with removal of tubes. MEDICATIONS: The patient is on albuterol 2 puffs inhalation q.i.d. p.r.n., aripiprazole 2 mg p.o. at bedtime, aspirin 81 mg p.o. daily, atorvastatin 80 mg p.o. daily, Basaglar insulin 15 units subcutaneous a.m., Klonopin 0.5 mg p.o. t.i.d., Trulicity 3 mg subcutaneous weekly, vitamin D 50,000 units p.o. weekly, famotidine 40 mg p.o. at bedtime, Flonase 2 sprays intranasal daily p.r.n., fosfomycin 3 g p.o. q. 3 days, gabapentin 600 mg p.o. b.i.d., isosorbide mononitrate 30 mg p.o. a.m., lactulose 45 g p.o. b.i.d., Lamictal 100 mg a.m. and 25 mg as directed, levothyroxine 88 mcg in a.m., metformin 1000 mg p.o. b.i.d., metoprolol succinate 50 mg p.o. b.i.d., montelukast 10 mg p.o. daily, morphine sulfate extended release 15 mg p.o. b.i.d., nitroglycerin 0.4 mg sublingual p.r.n., nystatin topical b.i.d. p.r.n., Zofran 8 mg p.o. 8 hours p.r.n., Ditropan XL 10 mg p.o. at bedtime, oxycodone 5 mg p.o. q. 8 hours p.r.n., Protonix 40 mg p.o. daily, spironolactone 50 mg p.o. b.i.d., torsemide 20 mg p.o. b.i.d., trazodone 100 mg p.o. at bedtime, venlafaxine 225 mg p.o. a.m., Xifaxan 550 mg p.o. b.i.d. FAMILY HISTORY: Significant for brother has CABG; father has HI; mother has angina. SOCIAL HISTORY: Lives alone, has caregivers. Daughter lives close by. No smoking, no alcohol, no drug use. REVIEW OF SYSTEMS: As per HPI. Rest of the review of systems are negative. Admission Exam Per Admitting Provider GENERAL: The patient is of moderate build, not in acute distress. VITAL SIGNS: Temperature 37, pulse 62, respiratory rate 19, blood pressure 121/68, oxygen 94% on room air. HEENT: Pupils equal, round and reactive to light. Oral mucosa dry. NECK: No JVD, no neck masses. CARDIOVASCULAR: S1 and S2 heard. Regular rate and rhythm. No murmur, no gallop. RESPIRATORY SYSTEM: Normal AP diameter. No accessory muscle use. No wheezing, no crackles. ABDOMEN: Soft, bowel sounds present. Mild diffuse discomfort, no guarding, no rigidity. No CVA tenderness. CENTRAL NERVOUS SYSTEM: Cranial nerves II-XII grossly intact, nonfocal. EXTREMITIES: No edema, no erythema. Principal Diagnosis Liyah UTI Urinary Retention likely 2/2 to UTI vs use of Oxybutynin Discharge Exam GENERAL: Alert and oriented x4. NAD, on RA. HEENT: No pallor, no icterus. Pupils equal, round and reactive to light. Oral mucosa moist. NECK: No JVD, no neck masses. HEART: S1 and S2 heard. Regular rate and rhythm. No murmur, no gallop. RESPIRATORY SYSTEM: Normal AP diameter. No accessory muscle use. No wheezing, no crackles. ABDOMEN: Soft, bowel sounds present, nontender, no distention. CENTRAL NERVOUS SYSTEM: Alert and oriented x3. No facial droop. Speech is clear. Obeys simple commands. Moves extremities. EXTREMITIES: No edema, no erythema seen. Discharge Data Allergies Allergy/AdvReac Type Severity Reaction Status Date / Time propoxyphene Allergy Mild Rash Verified 01/26/21 01:47 fentanyl AdvReac Intermediate PANIC Verified 01/26/21 01:47 WANTS TO RUN AND AGGRESSIVE zolpidem AdvReac Intermediate confusion Verified 01/26/21 01:47 methocarbamol AdvReac Mild DELERIUM Verified 01/26/21 01:47 Consultations 01/27/21 17:39 Consult Urology Routine 01/27/21 17:40 Consult Psychiatry Routine 01/29/21 10:47 Consult Infectious Diseases Routine Hospital Course (1) Candidal UTI (urinary tract infection): (2) H/O urinary retention: 70 year old lady with multiple comorbidities including recurrent acute delirium, ESPANA encephalopathy, psychiatric conditions requiring multiple medications presented with Acute delirium and Urinary retention & candiduria. She was being managed in the floor for the following: Assessment & Plan (1) Altered mental status: Metabolic encephalopathy vs acute urinary retention vs UTI vs other etiology Psychiatric evaluated and advised no change in Psy meds. NH3 level normal, doubt hepatic cause, c/w home dose of lactulose and rifaximin Patient improved and is AOx4 today, didn't take her morning meds per RN. Communicated with daughter for ensuring she takes her medication consistently. 2. Liyah UTI U Cx +ve for Liyah, not enterococcus (which has been positive in the past). ID consulted, suggested discontinuing of ampicillin, ordering Bl Cx for fungi Communicated with ID on the day of discharge. OK to DC. C/w fluconazole daily f or total of 14 days. F/u with fungal blood culture. Sent discharge instruction to patient. Will communicate the message to her PCP as well. 3. Acute renal failure on CKD stage III: Resolved, monitor BMP 4. Chronic urinary retention Urology on board: patient noted to have post void urine more than 700 ml Gallagher catheter placed per urology : will need cystoscopy evaluation in clinic. Stopped oxybutynin at discharge, asked patient to contact PCP if she needs in future. 5. History of [place] cirrhosis: Liver function within normal limit-follow daily labs Continue lactulose, rifaximin titrate lactulose dose to 2-3 soft bowel movements a day 6. Type 2 diabetes: Resumed her home meds at discharge 7. Diastolic CHF chronic Stable volume status, required no torsemide while in hospital. Changed torsemide to as needed dose from scheduled dose. continue home dose of spironolactone 8. DVT prophylaxis - subcu heparin while in hospital Disposition: Lives at home has 24-hour caregiver through aid service Daughter Carolyn involved very closely for her care, updated. PT/OT recommended PT and continued ambulation while inpatient. Following message has been communicated and put in discharge instructions: Continue taking Antibiotics and antifungal as directed. F/u with primary care doctor within a week time for further assessment and adjustments in medicine as necessary. Have PCP inquire about pending fungal culture x blood at discharge. F/u with psychiatry in 2-4 weeks and continue taking all medicine as directed. F/u with urology as an outpatient. Your torsemide has been changed to as needed (from scheduled dose) for leg swelling or shortness of breath since you didn't need any torsemide while in hospital. Your Oxybutynin has been stopped since it might be triggering your urinary retention. If you feel you need the oxybutynin back, please contact your primary care doctor. Total Time Total Time Spent Total Time Spent (In Minutes): 55 Discharge Plan Discharge Items Patient Disposition: Home - Self-Care Reason For Visit: CONFUSSION Discharge Diagnosis: Liyah UTI Urinary Retention Activity: Resume your previous activity Non-emergency contact: Primary Care Provider Call non-emergency contact if: you have any medication questions Follow-up/Referrals: Brian Domínguez MD [Primary Care Provider] - Diet: Carb Consistent or DM2 and Low Fat Addtl Attending Provider Instructions: Continue taking Antibiotics and antifungal as directed. F/u with primary care doctor within a week time for further assessment and adjustments in medicine as necessary. Have PCP inquire about pending fungal culture x blood at discharge. F/u with psychiatry in 2-4 weeks and continue taking all medicine as directed. F/u with urology as an outpatient. Your torsemide has been changed to as needed (from scheduled dose) for leg swelling or shortness of breath since you didn't need any torsemide while in hospital. Your Oxybutynin has been stopped since it might be triggering your urinary retention. If you feel you need the oxybutynin back, please contact your primary care doctor. Pending Studies at Discharge: Yes Studies:: Pending fungal blood culture 01/30. Smear is negative and growth was negative until evening of 02/01. Stand-Alone Forms: My [facility] [employer], Smoking Cessation Medications and DC Order Prescriptions: New doxycycline hyclate 100 mg Capsule 100 mg PO BID 2 Days Qty: 4 RF: 0 fluconazole 100 mg Tablet 100 mg PO QAM 10 Days Qty: 10 RF: 0 Continued ondansetron HCl 8 mg tablet 8 mg PO Q8H PRN (Reason: Nausea) RF: 0 famotidine 40 mg tablet 40 mg PO HS RF: 0 lamotrigine 25 mg tablet 25 mg PO UD RF: 0 levothyroxine 88 mcg tablet 88 mcg PO QAM RF: 0 lamotrigine 100 mg tablet 100 mg PO QAM RF: 0 aripiprazole 2 mg tablet 2 mg PO HS RF: 0 nitroglycerin [Nitrostat] 0.4 mg Tablet, Sublingual 0.4 mg Sublingual DIRECTED PRN (Reason: Chest Pain) RF: 0 ergocalciferol (vitamin D2) 50,000 unit Capsule 50,000 units PO TH RF: 0 albuterol sulfate [Ventolin HFA] 90 mcg/actuation Hfa Aerosol Inhaler 2 puff INHALATION QID PRN (Reason: Shortness Of Breath Or Wheezing) RF: 0 morphine 15 mg Tablet Extended Release 15 mg PO Q12H RF: 0 montelukast 10 mg Tablet 10 mg PO DAILY@1600 RF: 0 Basaglar KwikPen U-100 Insulin 100 unit/mL (3 mL) Insulin Pen 15 unit SUBCUT QAM RF: 0 Trulicity 1.5 mg/0.5 mL Pen Injector 1.5 mg SUBCUT FR RF: 0 spironolactone [Aldactone] 50 mg tablet 50 mg PO BID RF: 0 venlafaxine 75 mg capsule,extended release 24hr 75 mg PO QAM RF: 0 trazodone 50 mg Tablet 100 mg PO HS RF: 0 metoprolol succinate 50 mg Tablet Extended Release 24 Hr 50 mg PO BID RF: 0 metformin 500 mg tablet 1,000 mg PO BID RF: 0 Xifaxan 550 mg Tablet 550 mg PO BID RF: 0 atorvastatin 80 mg Tablet 80 mg PO DAILY RF: 0 aspirin 81 mg Tablet,Delayed Release (Dr/Ec) 81 mg PO DAILY RF: 0 pantoprazole 40 mg tablet,delayed release (DR/EC) 40 mg PO DAILY RF: 0 nystatin 100,000 unit/gram cream 1 applic TOPICAL .BID UD RF: 0 fluticasone propionate 50 mcg/actuation spray,suspension 2 spray INTRANASAL DAILY RF: 0 oxycodone 5 mg tablet 5 mg PO Q8 PRN (Reason: Outbreak) RF: 0 lactulose 10 gram/15 mL Solution 45 g PO BID RF: 0 Trulicity 3 mg/0.5 mL pen injector 3 mg SUBCUT WK RF: 0 isosorbide mononitrate 30 mg tablet extended release 24 hr 30 mg PO QAM RF: 0 venlafaxine 150 mg capsule,extended release 24hr 150 mg PO QAM RF: 0 gabapentin 600 mg tablet 600 mg PO BID RF: 0 clonazepam 0.5 mg tablet 0.5 mg PO TID Qty: 0 RF: 0 Changed torsemide 20 mg tablet 20 mg PO BID PRN (Reason: leg swelling or SOB) Qty: 0 RF: 0 Discontinued oxybutynin chloride [Ditropan XL] 10 mg Tablet Extended Release 24hr 10 mg PO HS RF: 0 fosfomycin tromethamine 3 gram packet 3 g PO .Q3DAYS RF: 0 amoxicillin-pot clavulanate [Augmentin] 875-125 mg tablet 1 tab PO BID 5 Days Qty: 10 RF: 0 Discharge Orders: Discharge Order (Routine); Ordered 02/01/21 Ordered By: Jazmin Toussaint Admission Data Admit Date/Time: 01/27/21 17:23 Attending Provider: Jazmin Toussaint Admit Provider: Julianne Armijo Primary Care Provider: Brian Domínguez Other Providers: Eron Montaño ; Jus Paz ; Elvin Butler ; Patricia Gonsalez ; Malcom Bellamy ; Anne Rosenberg ; Lisette Chan ; Andie Long ; Nir Beckford ; Gonzalo Flores ; Jeny Bowen ; Teresa Long ; Briseida Vargas ; Dr Abner ; Carolyn Montero ; Ivan Richard ; Indra Montes ; Hellen De Leon ; Sidney Holley I. ; Emerson Kothari II ; Vidya Palmer ; Tony Mae
[2021-02-01] MEDS: MONTELUKAST SODIUM 10 MG TABLET PO SCH (16:31)
== END 2021-02-01 17:54 | disposition home or self-care (01) | DRG 689 ==
LOC: 3N 17:23 → SUATTDRO 17:23

== ENCOUNTER 2021-11-23 10:08 | Inpatient (IN) ==
[2021-11-23 10:49] LABS: Basophils # (auto) 0.02 K/uL (0-0.2); Basophils % (auto) 0.2 %; Eosinophils # (auto) 0.25 K/uL (0-0.5); Eosinophils % (auto) 2.5 %; Hematocrit (blood only) 36.6 % (37-47); Hemoglobin 11.6 g/dL (12.0-16.0); Immature Granulocytes # (auto) 0.04 K/uL (0.00-0.02); Immature Granulocytes % (auto) 0.4 %; Lymphocytes # (auto) 1.55 K/uL (1.2-3.4); Lymphocytes % (auto) 15.6 %; Mean Corpuscular Hemoglobin 23.8 pg (25-34); Mean Corpuscular Hgb Conc 31.7 g/dL (32-36); Mean Corpuscular Volume 75.2 fL (80-100); Mean Platelet Volume 9.6 fL (7.4-10.4); Monocytes # (auto) 0.94 K/uL (0.11-0.59); Monocytes % (auto) 9.5 %; Neutrophils # (auto) 7.12 K/uL (1.4-6.5); Neutrophils % (auto) 71.8 %; Platelet Count 147 K/uL (130-400); RDW Coefficient of Variation 17.2 % (11.5-14.5); RDW Standard Deviation 47.3 fL (36.4-46.3); Red Blood Count 4.87 M/uL (4.2-5.4); White Blood Count 9.92 K/uL (4.8-10.8)
[2021-11-23 10:54] LABS: Appearance Urine Turbid (Clear); Bacteria Urine Automated 4+ (Negative); Bilirubin Urine Negative (Negative); Blood Urine 1+ (Negative); Color Urine Yellow; Epithelial Cell Urine Auto 20-30 /lpf (0-5); Glucose Urine UA Negative (Negative); Ketones Urine Negative (Negative); Leukocyte Esterase Urine 3+ (Negative); Nitrite Urine Positive (Negative); Protein Urine Negative (Negative); RBC Urine Automated 0-4 /hpf (0-4); Specific Gravity Urine 1.009 (1.000-1.030); Urobilinogen Urine Negative (Negative); WBC Urine Automated >30 /hpf (0-5)
[2021-11-23 11:02] LABS: Albumin Globulin Ratio 1.1 (0.9-2); Albumin Level 3.5 gm/dl (3.4-5.0); BUN Creatinine Ratio 8.1 (10-20); Bilirubin,Total 0.9 mg/dl (0.2-1.0); Calcium 8.9 mg/dl (8.5-10.1); Creatinine Clr Calc Pharmacy 69.7 ml/min; Est GFR (Non-African American) 56.9 ml/min; Globulin 3.1 gm/dl (2.5-4.0); Potassium 4.1 mmol/L (3.5-5.1); Total Protein 6.6 gm/dl (6.0-8.3)
[2021-11-23] MEDS ORDERED: ERTAPENEM SODIUM 10 ML IV STA (11:02)
[2021-11-23] MEDS ORDERED: ACETAMINOPHEN 325 MG TAB PO STA (11:08)
[2021-11-23 11:39] LABS: Influenza A virus by PCR Negative (Neg); Influenza B virus by PCR Negative (Neg); RSV by PCR Negative (Neg); SARS CoV2 RNA(COVID-19) InHosp NEGATIVE (Negative)
--- NOTE | 2021-11-23 11:47 | Emergency Department Note ---
Impression & Plan Weakness, Acute UTI, Fever ED Provider Note INFORMANT: Patient ED PROVIDER(S): Jesus Rosales MD CHIEF COMPLAINT: Urinary symptoms PLAN: Disposition: Admitted Condition: Good Outpatient prescription management: none Referral: None MEDICAL DECISION MAKING: Patient has a history of significant UTIs with ESBL infections. She had a fever and was generally weak. She was given oral Tylenol. Patient had a cough and COVID testing along with chest x-ray were negative. CBC and chemistry panel were unremarkable. Urinalysis is very concerning for infection. Given the patient's history I did discuss case with the ED pharmacist. A dose of IV Invanz was recommended pending culture results. Given the weakness and need for broad-spectrum antibiotics until cultures are confirmed further management in the hospital was deemed appropriate. Patient was in agreement. Consultation was made with the [facility]. Patient was evaluated in the ER and admitted for further management Triage Nursing notes reviewed and agree them. Vital Signs: reviewed and remarkable for fever Differential diagnosis: UTI, respiratory infection, dehydration, metabolic abnormality, hypo/hyperglycemia, electrolyte disturbance, anemia, hypoxia, cardiac sources, intracerebral event, toxicologic, neurologic, as well as other pathologies. Diagnostics interpreted by me: ECG: Twelve-lead ECG reveals normal sinus rhythm at 80 bpm. There is left axis deviation poor R progression. No ST elevation or depression. Rest. Cardiac Monitoring: Cardiac monitoring ordered by me: The patient was placed on continuous cardiac monitoring and observed. It revealed a normal sinus rhythm at 79 beats per minute without ectopy or evidence of dysrhythmia. Imaging studies: Chest x-ray. Findings: A chest x-ray was performed and revealed no pneumothorax, effusion, infiltrate, pulmonary edema, free air under the diaphragm, or wide mediastinum. Impression: No acute disease. HPI: The patient is a 71 year old female who presents to the Emergency Room with complaints of urinary symptoms. She has frequency and urgency. This started about a week and a half ago and is recurrent issue for her the patient. History of multiple UTIs including ESBL infections. The patient also notes the following associated symptoms, fever, generalized weakness, back pain, cough. She did use her nebulizer which helped. Current pain is rated as 7/10. Pt denies LOC, headache, diaphoresis, visual changes, neck pain, chest pain, nausea, vomiting, abdominal pain, melena, hematochezia, numbness, lymphadenopathy, rash, or other complaints. ROS: See above HPI for pertinent positives & negatives. A total of 10 systems reviewed and were otherwise negative. PAST MEDICAL HISTORY:See Below , complicated UTI, CAD PAST SURGICAL HISTORY:See Below, FAMILY HISTORY:See Below SOCIAL HISTORY:See Below, retired HOME MEDICATIONS:See Below ALLERGIES:See Below VITALS:See Below PHYSICAL EXAMINATION: GENERAL: Awake, tired-appearing, in no distress HENT: Normocephalic, atraumatic. Oropharynx unremarkable. EYES: Normal conjunctiva. Sclera non-icteric. NECK: Inspection normal. Non-tender. Supple. No nuchal rigidity. FROM. No masses. RESPIRATORY: Clear to auscultation. No wheezes. No rales. Normal respiratory effort. CARDIAC: Normal rate. Normal rhythm. No murmurs. No rubs. Extremities warm and well perfused. Pulses equal. No JVD. GI: Soft, non-distended. No tenderness to palpation. No rebound or guarding. No masses. RECTAL: Deferred. MUSCULOSKELETAL: Atraumatic. Chest examination reveals no tenderness. The back is symmetrical on inspection without obvious abnormality. There is mild bilateral CVA tenderness to palpation. No joint edema. LOWER EXTREMITIES: Calves are equal size bilaterally and non-tender. No edema. No discoloration. NEURO: Normal sensorium. No sensory or motor deficits noted. SKIN: No rash or jaundice noted. Jesus Rosales MD Past Med/Surg History Medical History Anxiety Bipolar disorder CAD (coronary artery disease) History of multiple PCI's to the RCA with subsequent CABG x1 in 2010 x 1 vessel Most recent cardiac testing-negative DSE in December 2017 Follows w/ Dr. Blackwell and Dr. Lucas Odmvqfo-Oexij-Auglf disease follows w/ Dr. Lemus Chronic diastolic CHF (congestive heart failure) Chronic pain syndrome Depression DM type 2 (diabetes mellitus, type 2) IDDM Dyslipidemia Encephalopathy d/c from [facility] 09/20/19 (hepatic encephalopathy) Gastroparesis GERD (gastroesophageal reflux disease) Hypertension Hypothyroidism Irregular heart beat follows Dr. 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 Beliefs That Will Affect Care: None marital status: / Current Living Situation: Alone Feels Safe at Home: Yes Assistive Devices: Walker Allergies Allergies Allergy/AdvReac Type Severity Reaction Status Date / Time propoxyphene Allergy Mild Rash Verified 10/10/21 13:26 fentanyl AdvReac Intermediate PANIC Verified 10/10/21 13:26 WANTS TO RUN AND AGGRESSIVE zolpidem AdvReac Intermediate confusion Verified 10/10/21 13:26 methocarbamol AdvReac Mild DELERIUM Verified 10/10/21 13:26 Home Meds Home Medications Medication Instructions Recorded Confirmed albuterol sulfate 90 mcg/actuation 2 puff INHALATION QID PRN 04/27/18 10/10/21 aerosol inhaler (Ventolin HFA) aripiprazole 2 mg tablet 2 mg PO HS 04/27/18 10/10/21 lamotrigine 100 mg tablet 100 mg PO QAM 04/27/18 10/10/21 lamotrigine 25 mg tablet 25 mg PO UD 04/27/18 10/10/21 levothyroxine 88 mcg tablet 88 mcg PO QAM 04/27/18 10/10/21 nitroglycerin 0.4 mg sublingual 0.4 mg SUBLINGUAL DIRECTED PRN 04/27/18 10/10/21 tablet (Nitrostat) montelukast 10 mg tablet 10 mg PO DAILY@1600 06/11/19 10/10/21 spironolactone 50 mg tablet 50 mg PO BID 09/15/19 10/10/21 (Aldactone) venlafaxine 75 mg capsule,extended 75 mg PO QAM 09/15/19 10/10/21 release 24 hr insulin glargine 100 unit/mL (3 55 unit SUBCUT QAM 12/22/19 10/10/21 mL) subcutaneous pen (Basaglar KwikPen U-100 Insulin) morphine 15 mg tablet,extended 15 mg PO AMHS 01/16/20 10/10/21 release metoprolol succinate 50 mg 50 mg PO BID 03/21/20 10/10/21 tablet,extended release 24 hr rifaximin 550 mg tablet (Xifaxan) 550 mg PO BID 03/21/20 10/10/21 trazodone 50 mg tablet 25 mg PO HS 03/21/20 10/10/21 isosorbide mononitrate 30 mg 30 mg PO QAM 01/07/21 10/10/21 tablet,extended release 24 hr venlafaxine 150 mg 150 mg PO QAM 01/07/21 10/10/21 capsule,extended release 24 hr aspirin 81 mg tablet,delayed 81 mg PO DAILY 01/26/21 10/10/21 release dulaglutide 3 mg/0.5 mL 3 mg SUBCUT WK 01/26/21 10/10/21 subcutaneous pen injector (Trulicity) fluticasone propionate 50 2 spray INTRANASAL DAILY 01/26/21 10/10/21 mcg/actuation nasal spray,suspension lactulose 10 gram/15 mL oral 45 g PO BID 01/26/21 10/10/21 solution oxycodone 5 mg tablet 5 mg PO Q8 PRN 01/26/21 10/10/21 pantoprazole 40 mg tablet,delayed 40 mg PO DAILYBB 01/26/21 10/10/21 release gabapentin 300 mg capsule 300 mg PO BID 02/26/21 10/10/21 clonazepam 0.5 mg tablet 0.5 mg PO TID 03/23/21 10/10/21 atorvastatin 40 mg tablet 40 mg PO QAM 10/10/21 10/10/21 dicyclomine 10 mg capsule 10 mg PO QID PRN 10/10/21 10/10/21 ergocalciferol (vitamin D2) 1,250 1,250 mcg PO WK 10/10/21 10/10/21 mcg (50,000 unit) capsule estradiol 1 applic VAGINAL QAM 10/10/21 10/10/21 fosfomycin tromethamine 3 gram 3 g PO Q OTHER DAY 10/10/21 10/10/21 oral packet nystatin 100,000 unit/gram topical 1 applic TOPICAL BID 10/10/21 10/10/21 cream nystatin 100,000 unit/mL oral 5 ml PO QID 10/10/21 10/10/21 suspension ondansetron HCl 8 mg tablet 8 mg PO Q8 PRN 10/10/21 10/10/21 oxybutynin chloride 10 mg 10 mg PO QAM 10/10/21 10/10/21 tablet,extended release 24 hr phenazopyridine 200 mg tablet 200 mg PO TIDM PRN 10/10/21 10/10/21 promethazine 25 mg tablet 25 mg PO Q6H PRN 10/10/21 10/10/21 tamsulosin 0.4 mg capsule 0.4 mg PO QAM 10/10/21 10/10/21 torsemide 20 mg tablet 20 mg PO QAM 10/10/21 10/10/21 Results & Data (ED) Vital Signs Vital Signs - 24 hr 11/23/21 10:20 11/23/21 10:37 11/23/21 11:49 Temperature 38.2 C H Temperature Source Oral Pulse Rate 81 81 Pulse Rate [Apical] 79 Pulse Rhythm Regular Regular Pulse Rhythm [Apical] Regular Pulse Strength Normal Pulse Strength [Apical] Normal Respiratory Rate 20 20 20 Respiratory Effort / Characteristics Non-Labored Spontaneous Non-Labored Spontaneous Respiratory Depth Normal Normal Respiratory Pattern Regular Regular Blood Pressure 150/55 H Blood Pressure [Right Arm] 119/72 Blood Pressure Mean 86 Blood Pressure Mean [Right Arm] 87 Blood Pressure Position Sitting Blood Pressure Position [Right Arm] Sitting Pulse Oximetry 91 91 90 Oxygen Delivery Method Room Air Room Air Room Air Sepsis Recent Fever Within 48 Hours Yes Sepsis New/Unexplained Change in Mental Status No Sepsis Action Taken by Nursing No Action Required Laboratory Data Result diagrams: 11/23/21 10:23 11/23/21 10:23 Lab Results 11/23/21 11/23/21 11/23/21 Range/Units 10:23 10:23 10:23 WBC 9.92 (4.8-10.8) K/uL RBC 4.87 (4.2-5.4) M/uL Hgb 11.6 L (12.0-16.0) g/dL Hct 36.6 L (37-47) % MCV 75.2 L (80-100) fL MCH 23.8 L (25-34) pg MCHC 31.7 L (32-36) g/dL RDW Std Deviation 47.3 H (36.4-46.3) fL RDW Coeff of Guillermo 17.2 H (11.5-14.5) % Plt Count 147 (130-400) K/uL MPV 9.6 (7.4-10.4) fL Immature Gran % (Auto) 0.4 % Neut % (Auto) 71.8 % Lymph % (Auto) 15.6 % [place] % (Auto) 9.5 % Eos % (Auto) 2.5 % Baso % (Auto) 0.2 % Neut # (Auto) 7.12 H (1.4-6.5) K/uL Lymph # (Auto) 1.55 (1.2-3.4) K/uL [place] # (Auto) 0.94 H (0.11-0.59) K/uL Eos # (Auto) 0.25 (0-0.5) K/uL Baso # (Auto) 0.02 (0-0.2) K/uL Immature Gran # (Auto) 0.04 H (0.00-0.02) K/uL Sodium 129 L (136-145) mmol/L Potassium 4.1 (3.5-5.1) mmol/L Chloride 93 L (98-107) mmol/L Carbon Dioxide 30 (21-32) mmol/L Anion Gap 6 (3-11) BUN 8 (6-23) mg/dl Creatinine 0.99 (0.6-1.2) mg/dl Est Cr Clr Drug Dosing 69.7 ml/min Est GFR ( Amer) 66.0 ml/min Est GFR (Non-Af Amer) 56.9 ml/min BUN/Creatinine Ratio 8.1 L (10-20) Glucose 180 H (70-99(Fasting)) mg/dl Lactate (0.4-2.0) mmol/L Calcium 8.9 (8.5-10.1) mg/dl Total Bilirubin 0.9 (0.2-1.0) mg/dl AST 19 (13-39) U/L ALT 13 (7-52) U/L Alkaline Phosphatase 120 H (34-104) U/L Total Protein 6.6 (6.0-8.3) gm/dl Albumin 3.5 (3.4-5.0) gm/dl Globulin 3.1 (2.5-4.0) gm/dl Albumin/Globulin Ratio 1.1 (0.9-2) Urine Color Urine Appearance (Clear) Urine pH (4.5-7.5) Ur Specific [place] (1.000-1.030) Urine Protein (Negative) Urine Glucose (UA) (Negative) Urine Ketones (Negative) Urine Blood (Negative) Urine Nitrite (Negative) Urine Bilirubin (Negative) Urine Urobilinogen (Negative) Ur Leukocyte Esterase (Negative) Urine WBC (Auto) (0-5) /hpf Urine RBC (Auto) (0-4) /hpf U Hyaline Cast (Auto) (0-5) /lpf U Epithel Cells (Auto) (0-5) /lpf Urine Bacteria (Auto) (Negative) Urine Yeast SARS-CoV-2 (PCR) NEGATIVE (Negative) Influenza Type A (PCR) Negative (Neg) Influenza Type B (PCR) Negative (Neg) RSV (RT-PCR) Negative (Neg) 11/23/21 11/23/21 Range/Units 10:23 11:34 WBC (4.8-10.8) K/uL RBC (4.2-5.4) M/uL Hgb (12.0-16.0) g/dL Hct (37-47) % MCV (80-100) fL MCH (25-34) pg MCHC (32-36) g/dL RDW Std Deviation (36.4-46.3) fL RDW Coeff of Guillermo (11.5-14.5) % Plt Count (130-400) K/uL MPV (7.4-10.4) fL Immature Gran % (Auto) % Neut % (Auto) % Lymph % (Auto) % [place] % (Auto) % Eos % (Auto) % Baso % (Auto) % Neut # (Auto) (1.4-6.5) K/uL Lymph # (Auto) (1.2-3.4) K/uL [place] # (Auto) (0.11-0.59) K/uL Eos # (Auto) (0-0.5) K/uL Baso # (Auto) (0-0.2) K/uL Immature Gran # (Auto) (0.00-0.02) K/uL Sodium (136-145) mmol/L Potassium (3.5-5.1) mmol/L Chloride (98-107) mmol/L Carbon Dioxide (21-32) mmol/L Anion Gap (3-11) BUN (6-23) mg/dl Creatinine (0.6-1.2) mg/dl Est Cr Clr Drug Dosing ml/min Est GFR ( Amer) ml/min Est GFR (Non-Af Amer) ml/min BUN/Creatinine Ratio (10-20) Glucose (70-99(Fasting)) mg/dl Lactate 1.3 (0.4-2.0) mmol/L Calcium (8.5-10.1) mg/dl Total Bilirubin (0.2-1.0) mg/dl AST (13-39) U/L ALT (7-52) U/L Alkaline Phosphatase (34-104) U/L Total Protein (6.0-8.3) gm/dl Albumin (3.4-5.0) gm/dl Globulin (2.5-4.0) gm/dl Albumin/Globulin Ratio (0.9-2) Urine Color Yellow Urine Appearance Turbid A (Clear) Urine pH 8.0 H (4.5-7.5) Ur Specific [place] 1.009 (1.000-1.030) Urine Protein Negative (Negative) Urine Glucose (UA) Negative (Negative) Urine Ketones Negative (Negative) Urine Blood 1+ H (Negative) Urine Nitrite Positive A (Negative) Urine Bilirubin Negative (Negative) Urine Urobilinogen Negative (Negative) Ur Leukocyte Esterase 3+ H (Negative) Urine WBC (Auto) >30 H (0-5) /hpf Urine RBC (Auto) 0-4 (0-4) /hpf U Hyaline Cast (Auto) 1-5 (0-5) /lpf U Epithel Cells (Auto) 20-30 H (0-5) /lpf Urine Bacteria (Auto) 4+ H (Negative) Urine Yeast Not Reportable SARS-CoV-2 (PCR) (Negative) Influenza Type A (PCR) (Neg) Influenza Type B (PCR) (Neg) RSV (RT-PCR) (Neg) Administered Medications Discontinued Medications Acetaminophen (Acetaminophen 325 Mg Tab) 650 mg PO NOW STA Stop: 11/23/21 11:09 Last Admin: 11/23/21 11:40 Dose: 650 mg Documented by: [id number] Ertapenem (Invanz) 10 mls @ 2 mls/min IV NOW STA Stop: 11/23/21 11:06 Last Admin: 11/23/21 12:51 Dose: 2 mls/min Documented by: [id number] Imaging Data Radiologist's Impression: Chest X-Ray 11/23/21 10:33 XR chest 2V PA/lateral CLINICAL HISTORY: Fever. Cough COMPARISON STUDY: 10/10/2021 TECHNIQUE: 2 views of the chest FINDINGS: Frontal and lateral radiographs of the chest demonstrate the cardiomediastinal silhouette to be within normal limits. The patient is status post previous cardiothoracic surgery. There is a decreased inspiratory effort with elevation of the hemidiaphragms and crowding of the bronchovascular markings at the lung bases and centrally. The lungs are clear of alveolar opacities. There is no evidence for effusion bilaterally. There is no evidence for vascular congestion. There is no acute osseous pathology. IMPRESSION: 1. There is a decreased inspiratory effort with otherwise no acute chest disease. ACT 112: Negative or not required by law. Electronically signed by: Luis F Benites M.D. 11/23/2021 1:56 PM Discharge Plan Visit Data Chief Complaint: Urinary Symptoms ED Provider: Jesus Rosales Discharge Problem: Weakness, Acute UTI, Fever Forms Stand Alone Forms: My [facility] Prescriptions Prescriptions: No Action lamotrigine 25 mg tablet 25 mg PO UD RF: 0 levothyroxine 88 mcg tablet 88 mcg PO QAM RF: 0 lamotrigine 100 mg tablet 100 mg PO QAM RF: 0 aripiprazole 2 mg tablet 2 mg PO HS RF: 0 nitroglycerin [Nitrostat] 0.4 mg Tablet, Sublingual 0.4 mg Sublingual DIRECTED PRN (Reason: Chest Pain) RF: 0 albuterol sulfate [Ventolin HFA] 90 mcg/actuation Hfa Aerosol Inhaler 2 puff INHALATION QID PRN (Reason: Shortness Of Breath Or Wheezing) RF: 0 morphine 15 mg Tablet Extended Release 15 mg PO AMHS RF: 0 montelukast 10 mg Tablet 10 mg PO DAILY@1600 RF: 0 Basaglar KwikPen U-100 Insulin 100 unit/mL (3 mL) Insulin Pen 55 unit SUBCUT QAM RF: 0 spironolactone [Aldactone] 50 mg tablet 50 mg PO BID RF: 0 venlafaxine 75 mg capsule,extended release 24hr 75 mg PO QAM RF: 0 trazodone 50 mg Tablet 25 mg PO HS RF: 0 metoprolol succinate 50 mg Tablet Extended Release 24 Hr 50 mg PO BID RF: 0 Xifaxan 550 mg Tablet 550 mg PO BID RF: 0 aspirin 81 mg Tablet,Delayed Release (Dr/Ec) 81 mg PO DAILY RF: 0 pantoprazole 40 mg tablet,delayed release (DR/EC) 40 mg PO DAILYBB RF: 0 fluticasone propionate 50 mcg/actuation spray,suspension 2 spray INTRANASAL DAILY RF: 0 oxycodone 5 mg tablet 5 mg PO Q8 PRN (Reason: Outbreak) RF: 0 lactulose 10 gram/15 mL Solution 45 g PO BID RF: 0 Trulicity 3 mg/0.5 mL pen injector 3 mg SUBCUT WK RF: 0 nystatin 100,000 unit/mL suspension 5 ml PO QID RF: 0 phenazopyridine 200 mg tablet 200 mg PO TIDM PRN (Reason: urination pain) RF: 0 nystatin 100,000 unit/gram cream 1 applic TOPICAL BID RF: 0 ergocalciferol (vitamin D2) 1,250 mcg (50,000 unit) capsule 1,250 mcg PO WK RF: 0 oxybutynin chloride 10 mg tablet extended release 24hr 10 mg PO QAM RF: 0 tamsulosin 0.4 mg capsule 0.4 mg PO QAM RF: 0 estradiol 0.01 % (0.1 mg/gram) cream 1 applic VAGINAL QAM RF: 0 atorvastatin 40 mg tablet 40 mg PO QAM RF: 0 promethazine 25 mg Tablet 25 mg PO Q6H PRN (Reason: nausea or vomiting) RF: 0 fosfomycin tromethamine 3 gram packet 3 g PO Q OTHER DAY RF: 0 ondansetron HCl 8 mg tablet 8 mg PO Q8 PRN (Reason: Nausea) RF: 0 dicyclomine 10 mg capsule 10 mg PO QID PRN (Reason: Abdominal Pain) RF: 0 torsemide 20 mg tablet 20 mg PO QAM RF: 0 isosorbide mononitrate 30 mg tablet extended release 24 hr 30 mg PO QAM RF: 0 venlafaxine 150 mg capsule,extended release 24hr 150 mg PO QAM RF: 0 gabapentin 300 mg capsule 300 mg PO BID RF: 0 clonazepam 0.5 mg tablet 0.5 mg PO TID RF: 0 Referrals Referrals: Brian Domínguez MD [Primary Care Provider] -
[2021-11-23] MEDS ORDERED: ERTAPENEM SODIUM 1,000 MG in SYRINGE 0 ML IV STA (12:50)
--- NOTE | 2021-11-23 13:57 | XRay Report ---
XR chest 2V PA/lateral CLINICAL HISTORY: Fever. Cough COMPARISON STUDY: 10/10/2021 TECHNIQUE: 2 views of the chest FINDINGS: Frontal and lateral radiographs of the chest demonstrate the cardiomediastinal silhouette to be withi n normal limits. The patient is status post previous cardiothoracic surgery. There is a decreased ins piratory effort with elevation of the hemidiaphragms and crowding of the bronchovascular markings at the lung bases and centrally. The lungs are clear of alveolar opacities. There is no evidence for eff usion bilaterally. There is no evidence for vascular congestion. There is no acute osseous pathology. IMPRESSION: 1. There is a decreased inspiratory effort with otherwise no acute chest disease. ACT 112: Negative or not required by law. Electronically signed by: Luis F Benites M.D. 11/23/2021 1:56 PM
--- NOTE | 2021-11-23 14:15 | History & Physical Report ---
Date of Service November 23, 2021 Assessment & Plan (1) UTI (urinary tract infection): Plan: Patient is 71 y/o F with PMH DM II, cirrhosis, hepatic encephalopathy, HTN, chronic diastolic CHF, CAD s/p stent, moderate aortic stenosis, h/o UTI, Adtrpam-gacsl-tjdof, thrombocytopenia, bipolar disorder presented to ER with c/o urinary frequency, dysuria, change in color of urine x 1.5 weeks ago. Fever 101F. In ER T: 38.2C, other vitals stable. WBC: 9, lactate WNL, UA:+ Nitrite, 3+ leuk esterase, 4+ bacteria, 20-30 epithelial cells In ER given ertapenem Urine culture pending H/O proteus UTI in 10/07/21, h/o enterococcus faecium VRE and e.coli ESBL in 2019. Start cefepime pending culture results CBC, BMP in a.m. INSULIN-DEPENDENT DM TYPE 2: A1c: 8.3 on 11/01/2021 Hold Trulicity Basal bolus insulin per protocol CHRONIC DIASTOLIC CHF: Appears euvolemic continue torsemide, spironolactone HYPERTENSION: continue metoprolol succinate CIRRHOSIS OF LIVER Euvolemic, no hepatic encephalopathy Continue torsemide, spironolactone, lactulose, Xifaxan HYPOTHYROIDISM: Continue levothyroxine BIPOLAR DISORDER Continue home meds CHRONIC PAIN SYNDROME: Continue morphine ER and as needed oxycodone, continue gabapentin DVT Prophylaxis Lovenox SQ DNR/DNI as per discussion with pt Follows with Dr Domínguez for routine care Pt was seen and care coordinated with Dr Smith. See addendum History of Present Illness Chief Complaint: Urinary frequency Primary Care Provider: Brian Domínguez MD Patient is 71 y/o F with PMH DM II, cirrhosis, hepatic encephalopathy, HTN, chronic diastolic CHF, CAD s/p stent, moderate aortic stenosis, h/o UTI, Xhqjeuz-lrghf-qmkrm, thrombocytopenia, bipolar disorder presented to ER with c/o urinary frequency, dysuria, change in color of urine x 1.5 weeks ago. Has been having chills at home. Temps at home 101F. Today 100.6F. Vomited a couple of times over past 2 weeks. last vomited approximately 5 days ago. Abdominal discomfort lower abdomen for 5 days. Diarrhea 5 days ago. Last BM yesterday and was formed stool. Has been coughing for months. Feels like needs to cough stuff up however unable to bring it up. reports has had testing and nothing has showed up. Does report daughter smokes 1ppd in house. Also c/o headache intermittently for past week. Little sore throat for past 2 days. Chronic bilateral lower extremity pain feels is at baseline. Denies diaphoresis, emesis, hematochezia, melena, dizziness, syncope, vision changes, neck pain, CP, SOB, orthopnea, p alpitations, choking, otalgia, rhinorrhea, paresthesias, weakness, extremity edema, rashes, hematuria. Prior charts and labs reviewed H/O proteus UTI in 10/07/21, h/o enterococcus faecium VRE and e.coli ESBL in 2019. Allergies Allergy/AdvReac Type Severity Reaction Status Date / Time propoxyphene Allergy Mild Rash Verified 10/10/21 13:26 fentanyl AdvReac Intermediate PANIC Verified 10/10/21 13:26 WANTS TO RUN AND AGGRESSIVE zolpidem AdvReac Intermediate confusion Verified 10/10/21 13:26 methocarbamol AdvReac Mild DELERIUM Verified 10/10/21 13:26 Home Medications Medication Instructions Recorded Confirmed Type albuterol sulfate 90 mcg/actuation 2 puff INHALATION QID PRN 04/27/18 11/23/21 History aerosol inhaler (Ventolin HFA) aripiprazole 2 mg tablet 2 mg PO HS 04/27/18 11/23/21 History levothyroxine 88 mcg tablet 88 mcg PO QAM 04/27/18 11/23/21 History nitroglycerin 0.4 mg sublingual 0.4 mg SUBLINGUAL DIRECTED PRN 04/27/18 11/23/21 History tablet (Nitrostat) montelukast 10 mg tablet 10 mg PO DAILY@1600 06/11/19 11/23/21 History spironolactone 50 mg tablet 50 mg PO BID 09/15/19 11/23/21 History (Aldactone) venlafaxine 75 mg capsule,extended 75 mg PO QAM 09/15/19 11/23/21 History release 24 hr insulin glargine 100 unit/mL (3 60 unit SUBCUT QAM 12/22/19 11/23/21 History mL) subcutaneous pen (Basaglar KwikPen U-100 Insulin) morphine 15 mg tablet,extended 15 mg PO AMHS 01/16/20 11/23/21 History release metoprolol succinate 50 mg 50 mg PO BID 03/21/20 11/23/21 History tablet,extended release 24 hr rifaximin 550 mg tablet (Xifaxan) 550 mg PO BID 03/21/20 11/23/21 History isosorbide mononitrate 30 mg 30 mg PO QAM 01/07/21 11/23/21 History tablet,extended release 24 hr venlafaxine 150 mg 150 mg PO QAM 01/07/21 11/23/21 History capsule,extended release 24 hr aspirin 81 mg tablet,delayed 81 mg PO DAILY 01/26/21 11/23/21 History release dulaglutide 3 mg/0.5 mL 3 mg SUBCUT WK 01/26/21 11/23/21 History subcutaneous pen injector (Trulicity) fluticasone propionate 50 2 spray INTRANASAL DAILY 01/26/21 11/23/21 History mcg/actuation nasal spray,suspension lactulose 10 gram/15 mL oral 45 g PO BID 01/26/21 11/23/21 History solution oxycodone 5 mg tablet 5 mg PO Q8 PRN 01/26/21 11/23/21 History pantoprazole 40 mg tablet,delayed 40 mg PO DAILYBB 01/26/21 11/23/21 History release gabapentin 300 mg capsule 300 mg PO BID 02/26/21 11/23/21 History clonazepam 0.5 mg tablet 0.5 mg PO TID 03/23/21 11/23/21 History atorvastatin 40 mg tablet 40 mg PO QAM 10/10/21 11/23/21 History dicyclomine 10 mg capsule 10 mg PO QID PRN 10/10/21 11/23/21 History ergocalciferol (vitamin D2) 1,250 1,250 mcg PO WK 10/10/21 11/23/21 History mcg (50,000 unit) capsule estradiol 1 applic VAGINAL QAM 10/10/21 11/23/21 History ondansetron HCl 8 mg tablet 8 mg PO Q8 PRN 10/10/21 11/23/21 History oxybutynin chloride 10 mg 10 mg PO QAM 10/10/21 11/23/21 History tablet,extended release 24 hr phenazopyridine 200 mg tablet 200 mg PO TIDM PRN 10/10/21 11/23/21 History promethazine 25 mg tablet 25 mg PO Q6H PRN 10/10/21 11/23/21 History tamsulosin 0.4 mg capsule 0.4 mg PO QAM 10/10/21 11/23/21 History torsemide 20 mg tablet 20 mg PO QAM 10/10/21 11/23/21 History lamotrigine 100 mg tablet 100 mg PO DAILY 11/23/21 11/23/21 History lamotrigine 25 mg tablet 25 mg PO DAILY 11/23/21 11/23/21 History lamotrigine 25 mg tablet 50 mg PO HS 11/23/21 11/23/21 History methenamine hippurate 1 gram tablet 1 g PO DAILY 11/23/21 11/23/21 History Past Med/Surg History Medical History Anxiety Bipolar disorder CAD (coronary artery disease) History of multiple PCI's to the RCA with subsequent CABG x1 in 2010 x 1 vessel Most recent cardiac testing-negative DSE in December 2017 Follows w/ Dr. Blackwell and Dr. Lucas Aamscii-Kjxej-Qbxqx disease follows w/ Dr. Lemus Chronic diastolic CHF (congestive heart failure) Chronic pain syndrome Depression DM type 2 (diabetes mellitus, type 2) IDDM Dyslipidemia Encephalopathy d/c from [facility] 09/20/19 (hepatic encephalopathy) Gastroparesis GERD (gastroesophageal reflux disease) Hypertension Hypothyroidism Irregular heart beat follows Dr. 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 Moderate aortic stenosis GONZALEZ (nonalcoholic steatohepatitis) Osteoarthritis Portal hypertensive gastropathy Spondylosis Urinary incontinence UTI (urinary tract infection) REASON FOR CIPRO Surgical History History of appendectomy History of back surgery sacral area History of cardiac cath multiple - most recent - 2 years ago @ [place] - FOR CP History of cataract surgery RT History of colonoscopy History of esophagogastroduodenoscopy (EGD) History of heart artery stent 2 yrs ago @ [facility] > unsure of how many stents > follows Dr. Lucas History of total right knee replacement Hx of cholecystectomy S/P CABG x 1 2010 - single vessel S/P CARLOS (total abdominal hysterectomy) Family History Father Coronary heart disease Brother Coronary heart disease Father Diabetes Mother Diabetes Social History Smoking Status: Never smoker Second Hand Exposure: Yes (DAUGHTER SMOKES); Hx Alcohol Use: Yes Alcohol type: beer and wine Hx Substance Use: No Preferred Language: Georgian Communication Ability: Effective Dehydrator Required: No Beliefs That Will Affect Care: None marital status: / Current Living Situation: Alone Other Information That Helps Us Care for You: No Feels Safe at Home: Yes Safety Concerns: Feels Safe At This Time Assistive Devices: Denture - Upper, Glasses and Walker Review of Systems Review of Systems: All systems reviewed & are unremarkable except as noted in HPI & below Physical Exam Physical Exam: General: no distress, obese Head: normocephalic, atraumatic Eyes: PERRL, EOM's intact, conjunctiva non-injected, anicteric ENT: normal inspection external ears, nose, mucous membranes moist Neck: supple, trachea midline Lungs: clear, no respiratory distress, no wheezing/rhonchi/rales CV: RRR, + murmur, trace pretibial edema Abd: normal BS, soft, +right CVA tenderness to palpation, otherwise abdomen non- tender Ext: no cyanosis, no calf tenderness Neuro: A&O x 3, no focal deficits noted, normal affect Skin: warm, dry Results & Data Results & Data ([facility]) Vital Signs (Past 12 Hours) Vital Signs Temp Pulse Pulse Resp BP BP Pulse Ox 11/23/21 11:49 79 20 119/72 90 11/23/21 10:37 81 20 91 11/23/21 10:20 38.2 C H 81 20 150/55 H 91 Laboratory Results Short CBC 11/23/21 Range/Units 10:23 WBC 9.92 (4.8-10.8) K/uL Hgb 11.6 L (12.0-16.0) g/dL Hct 36.6 L (37-47) % Plt Count 147 (130-400) K/uL BMP 11/23/21 10:23 Sodium 129 L Potassium 4.1 Chloride 93 L Carbon Dioxide 30 BUN 8 Creatinine 0.99 Glucose 180 H Calcium 8.9 Liver Function 11/23/21 Range/Units 10:23 Total Bilirubin 0.9 (0.2-1.0) mg/dl AST 19 (13-39) U/L ALT 13 (7-52) U/L Alkaline Phosphatase 120 H (34-104) U/L Albumin 3.5 (3.4-5.0) gm/dl Urine 11/23/21 Range/Units 10:23 Urine Color Yellow Urine Appearance Turbid A (Clear) Urine pH 8.0 H (4.5-7.5) Ur Specific [place] 1.009 (1.000-1.030) Urine Protein Negative (Negative) Urine Glucose (UA) Negative (Negative) Diagnostic Findings Chest X-Ray 11/23/21 10:33 XR chest 2V PA/lateral CLINICAL HISTORY: Fever. Cough COMPARISON STUDY: 10/10/2021 TECHNIQUE: 2 views of the chest FINDINGS: Frontal and lateral radiographs of the chest demonstrate the cardiomediastinal silhouette to be within normal limits. The patient is status post previous cardiothoracic surgery. There is a decreased inspiratory effort with elevation of the hemidiaphragms and crowding of the bronchovascular markings at the lung bases and centrally. The lungs are clear of alveolar opacities. There is no evidence for effusion bilaterally. There is no evidence for vascular congestion. There is no acute osseous pathology. IMPRESSION: 1. There is a decreased inspiratory effort with otherwise no acute chest disease. ACT 112: Negative or not required by law. Electronically signed by: Luis F Benites M.D. 11/23/2021 1:56 PM Supervising Physician Co-Signing Physician Notes Date of Service: November 23, 2021 History and physical exam performed by [place]. History notable for 71-year-old woman with history of diabetes, UTI, chronic back pain, Cirrhosis, hepatic encephalopathy, hypothyroidism, hypertension, chronic diastolic heart failure, CAD status post stents, aortic stenosis and other chronic medical problems who presents with urinary symptoms for the past 1 and half week. Reports change in color of urine, dysuria and frequency Reports chronic urinary incontinence and chronic cough. Reported some episode of nausea, vomiting and diarrhea sometime within the past week. Reports chronic knee pain. Reports abdominal discomfort Physical exam, General: Well hydrated, obese, no acute distress and not ill appearing Eyes: PERRL, conjunctivae normal, not pale, anicteric sclerae, EOM intact bilaterally ENMT: External ear and nose normal, oropharynx normal Respiratory: Normal respiratory effort, no respiratory distress, lungs cl ear to auscultation, no crackles and no wheezes Cardiovascular: RRR S1 S2 +murmur Gastrointestinal (Abdomen): Abdomen is not distended, soft, non-tender to palpation, no guarding, no palpable hepatosplenomegaly, normal bowel sounds Musculoskeletal: +pedal edema Genitourinary: No CVA tenderness Neurologic: PERRL, EOMI, No focal weakness, sensation grossly intact Psychiatric: Alert and oriented x 3, euthymic affect, no depressed affect Labs notable for hemoglobin of 11.6, sodium of 129, chloride of 93, alkaline phosphatase of 120 Urinalysis showed pH of 8, positive nitrite and leukocyte esterase, more than 30 WBC Chest x-ray did not show any acute disease, poor inspiratory effort Urinary tract infection. Review of recent urine culture grew Proteus mirabilis which was resistant to ampicillin, fluoroquinolones and Bactrim. Hyponatremia is chronic based on lab review IV cefepime Follow-up urine culture Continue home medications Agree with other plans as detailed by Alise Waite PA-C (1) UTI (urinary tract infection) Hematuria presence: without hematuria Urinary tract infection type: site unspecified Qualified Code(s): N39.0 - Urinary tract infection, site not specified
--- NOTE | 2021-11-23 15:44 | Communication Note ---
Date of Service: November 23, 2021 History and physical exam performed by me. History notable for 71-year-old woman with history of diabetes, UTI, chronic back pain, Cirrhosis, hepatic encephalopathy, hypothyroidism, hypertension, chronic diastolic heart failure, CAD status post stents, aortic stenosis and other chronic medical problems who presents with urinary symptoms for the past 1 and half week. Reports change in color of urine, dysuria and frequency Reports chronic urinary incontinence and chronic cough. Reported some episode of nausea, vomiting and diarrhea sometime within the past week. Reports chronic knee pain. Reports abdominal discomfort Physical exam, General: Well hydrated, obese, no acute distress and not ill appearing Eyes: PERRL, conjunctivae normal, not pale, anicteric sclerae, EOM intact bilaterally ENMT: External ear and nose normal, oropharynx normal Respiratory: Normal respiratory effort, no respiratory distress, lungs clear to auscultation, no crackles and no wheezes Cardiovascular: RRR S1 S2 +murmur Gastrointestinal (Abdomen): Abdomen is not distended, soft, non-tender to palpation, no guarding, no palpable hepatosplenomegaly, normal bowel sounds Musculoskeletal: +pedal edema Genitourinary: No CVA tenderness Neurologic: PERRL, EOMI, No focal weakness, sensation grossly intact Psychiatric: Alert and oriented x 3, euthymic affect, no depressed affect Labs notable for hemoglobin of 11.6, sodium of 129, chloride of 93, alkaline phosphatase of 120 Urinalysis showed pH of 8, positive nitrite and leukocyte esterase, more than 30 WBC Chest x-ray did not show any acute disease, poor inspiratory effort Urinary tract infection. Review of recent urine culture grew Proteus mirabilis which was resistant to ampicillin, fluoroquinolones and Bactrim. Hyponatremia is chronic based on lab review IV cefepime Follow-up urine culture Continue home medications Agree with other plans as detailed by Alise Waite PA-C
[2021-11-23] MEDS ORDERED: ONDANSETRON INJ 2 MG/ML 2 ML VIAL IV PRN (17:42)
--- NOTE | 2021-11-23 18:16 | Electrocardiogram Report ---
Test Reason : Blood Pressure : / mmHG Vent. Rate : 080 BPM Atrial Rate : 080 BPM P-R Int : 164 ms QRS Dur : 092 ms QT Int : 360 ms P-R-T Axes : -16 -38 044 degrees QTc Int : 415 ms Poor data quality, interpretation may be adversely affected Normal sinus rhythm Left axis deviation Cannot rule out Anterior infarct , age undetermined Abnormal ECG When compared with ECG of 10-OCT-2021 13:02, No significant change was found Confirmed by Daniel Maharaj ([id number]) on 11/23/2021 6:15:35 PM Referred By: REFERRED SELF Confirmed By:Jarrell Maharaj
[2021-11-23] MEDS ORDERED: GLUCOSE 10 TABS/TUBE PO PRN (19:30)
[2021-11-23] MEDS ORDERED: GLUCAGON FOR INJ 1 MG VIAL SQ PRN (19:30)
[2021-11-23] MEDS ORDERED: CARBOHYDRATES FOR HYPOGLYCEMIA PO PRN (19:30)
[2021-11-23] MEDS ORDERED: GLUCOSE 40% GEL 15 GM TUBE PO PRN (19:30)
[2021-11-23] MEDS ORDERED: DEXTROSE 50% 50 ML SYRINGE IV PRN (19:30)
[2021-11-23] MEDS ORDERED: DICYCLOMINE HCL 10 MG CAP PO PRN (19:31)
[2021-11-23] MEDS ORDERED: ALBUTEROL HFA 8 GM INHALER INH PRN (19:34)
[2021-11-23] MEDS: GABAPENTIN 300 MG CAP PO SCH (20:31)
[2021-11-23] MEDS: CEFEPIME 2,000 MG in SYRINGE 0 ML IV SCH (20:31)
[2021-11-23] MEDS ORDERED: LACTULOSE SYRUP 30 GM/45 ML UDP PO SCH (21:00)
[2021-11-23] MEDS: SPIRONOLACTONE 25 MG TAB PO SCH (21:12)
[2021-11-23] MEDS: METOPROLOL SUCC 50MG EXT REL TAB PO SCH (21:12)
[2021-11-23] MEDS: lamoTRIgine 25 MG TAB PO SCH (21:12)
[2021-11-23] MEDS: rifAXIMin 550 MG TABLET PO SCH (21:12)
[2021-11-23] MEDS: ENOXAPARIN INJ 40 MG/0.4 ML SYR SQ SCH (21:15)
[2021-11-23] MEDS: MoRPHine SULFATE CR 15 MG TABCR PO SCH (21:18)
[2021-11-23] MEDS: clonazePAM 0.5 MG TAB PO SCH (21:18)
[2021-11-23] MEDS: LACTULOSE SYRUP 10 GM/15 ML BTL 960 ML PO SCH (21:19)
[2021-11-23] MEDS: INSULIN ASPART PER UNIT SC SCH (21:20)
[2021-11-23] MEDS: INSULIN GLARGINE SOLOSTAR 100 UNITS/ML 3 ML PEN SC SCH (21:21)
[2021-11-24] MEDS: CEFEPIME 2,000 MG in SYRINGE 0 ML IV SCH ×3 (02:37→18:17)
[2021-11-24] MEDS: PANTOprazole 40 MG TAB PO SCH (06:04)
[2021-11-24] MEDS: LEVOTHYROXINE SODIUM 88 MCG TABLET PO SCH (06:04)
[2021-11-24 06:11] LABS: Hematocrit (blood only) 38.9 % (37-47); Hemoglobin 12.2 g/dL (12.0-16.0); Mean Corpuscular Hemoglobin 23.8 pg (25-34); Mean Corpuscular Hgb Conc 31.4 g/dL (32-36); Mean Corpuscular Volume 75.8 fL (80-100); Mean Platelet Volume 10.3 fL (7.4-10.4); Platelet Count 124 K/uL (130-400); RDW Coefficient of Variation 17.3 % (11.5-14.5); RDW Standard Deviation 48.2 fL (36.4-46.3); Red Blood Count 5.13 M/uL (4.2-5.4); White Blood Count 7.05 K/uL (4.8-10.8)
[2021-11-24 06:31] LABS: Albumin Globulin Ratio 1.1 (0.9-2); Albumin Level 3.4 gm/dl (3.4-5.0); BUN Creatinine Ratio 8.5 (10-20); Bilirubin,Total 0.9 mg/dl (0.2-1.0); Calcium 9.2 mg/dl (8.5-10.1); Creatinine Clr Calc Pharmacy 57.6 ml/min; Est GFR (African American) 53.4 ml/min; Globulin 3.2 gm/dl (2.5-4.0); Total Protein 6.6 gm/dl (6.0-8.3)
[2021-11-24] MEDS: ASPIRIN 81 MG ECTAB PO SCH (08:22)
[2021-11-24] MEDS: METOPROLOL SUCC 50MG EXT REL TAB PO SCH ×2 (08:22→21:44)
[2021-11-24] MEDS: VENLAFAXINE HCL XR 150 MG CAPXR PO SCH (08:23)
[2021-11-24] MEDS: GABAPENTIN 300 MG CAP PO SCH ×2 (08:23→21:44)
[2021-11-24] MEDS: TORSEMIDE 20 MG TAB PO SCH (08:23)
[2021-11-24] MEDS: VENLAFAXINE HCL XR 75 MG CAPXR PO SCH (08:23)
[2021-11-24] MEDS: ISOSORBIDE MONO EXTENDED REL 30 MG TABCR PO SCH (08:23)
[2021-11-24] MEDS: TAMSULOSIN HCL 0.4 MG CAP PO SCH (08:23)
[2021-11-24] MEDS: OXYBUTYNIN CHLORIDE XL 5 MG TABCR PO SCH (08:23)
[2021-11-24] MEDS: lamoTRIgine 100 MG TAB PO SCH (08:24)
[2021-11-24] MEDS: lamoTRIgine 25 MG TAB PO SCH ×2 (08:24→21:43)
[2021-11-24] MEDS: ATORVASTATIN 40 MG TAB PO SCH (08:24)
[2021-11-24] MEDS: rifAXIMin 550 MG TABLET PO SCH ×2 (08:25→21:44)
[2021-11-24] MEDS: INSULIN GLARGINE SOLOSTAR 100 UNITS/ML 3 ML PEN SC SCH ×2 (08:28→21:48)
[2021-11-24] MEDS: MoRPHine SULFATE CR 15 MG TABCR PO SCH ×2 (08:33→21:46)
[2021-11-24] MEDS: LACTULOSE SYRUP 10 GM/15 ML BTL 960 ML PO SCH ×2 (08:35→21:40)
[2021-11-24] MEDS: clonazePAM 0.5 MG TAB PO SCH ×3 (08:41→21:46)
[2021-11-24] MEDS: oxyCODONE HCL IR 5 MG TAB (IMMEDIATE RELEASE) PO PRN ×2 (08:41→15:33)
[2021-11-24] MEDS: INSULIN ASPART PER UNIT SC SCH ×4 (08:47→20:59)
[2021-11-24] MEDS: SPIRONOLACTONE 25 MG TAB PO SCH ×2 (13:42→21:43)
--- NOTE | 2021-11-24 15:56 | Hospitalist Progress Note ---
Date of Service November 24, 2021 Assessment & Plan (1) UTI (urinary tract infection): Plan: Patient is a 71 yr female with H/O DM II, cirrhosis, hepatic encephalopathy, HTN, chronic diastolic CHF, CAD s/p stent, moderate aortic stenosis, h/o UTI, Uechjzy-gsfve-bufph, thrombocytopenia, bipolar disorder presented to ER with c/o urinary frequency, dysuria, change in color of urine x 1.5 weeks ago. Fever 101F. Urinary tract infection H/O proteus UTI in 10/07/21, h/o enterococcus faecium VRE and e.coli ESBL in 2019. Blood cultures pending Urine culture growing gram-negative baseline Continue Cefepime DM II A1c: 8.3 on 11/01/2021 Hold Trulicity Basal bolus insulin per protocol Monitor Chronic Diastolic CHF: Appears euvolemic continue torsemide, spironolactone HTN: continue metoprolol succinate Chronic hyponatremia Monitor Cirrhosis of Liver No hepatic encephalopathy Continue torsemide, spironolactone, lactulose, Xifaxan Hypothyroidism: Continue levothyroxine Bipolar Disorder Continue home meds Chronic Pain Syndrome: Continue morphine ER and as needed oxycodone, continue gabapentin DVT Px Lovenox SQ Code Status DNR/DNI Follows with Dr Domínguez for routine care Admission and Anticipated Discharge Date Admission Date: November 23, 2021 Subjective Patient is seen and examined at bedside States having minimal dysuria which is improving Reports generalized weakness Denies any chest pain, dyspnea, dizziness, nausea, abdominal pain, hematuria Offers no other complaints Review of Systems Review of Systems: All systems reviewed & are unremarkable except as noted in Subjective Physical Exam Physical Exam: Physical Exam: Vitals signs as noted above General Appearance:Obese, no apparent distress Head: normocephalic, Atraumatic Eyes: normal inspection, EOMI Neck: supple, Trachea midline Respiratory/Chest: Normal breath sounds, CTA, No accessory muscle use Cardiovascular: S1, S2, + murmur Abdomen/GI:Soft, Non tender, Bowel sounds present Extremities/Musculoskeletal:normal inspection, no edema Neurologic/Psych:AAOX3, grossly no focal neurological deficits Skin: normal color, warm Results & Data Results & Data ([facility]) Vital Signs (Past 12 Hours) Vital Signs Temp Pulse Resp BP Pulse Ox 11/24/21 08:01 36.9 C 76 18 125/78 98 Laboratory Results Short CBC 11/24/21 Range/Units 05:42 WBC 7.05 (4.8-10.8) K/uL Hgb 12.2 (12.0-16.0) g/dL Hct 38.9 (37-47) % Plt Count 124 L (130-400) K/uL BMP 11/24/21 05:42 Sodium 134 L Potassium 4.0 Chloride 97 L Carbon Dioxide 29 BUN 10 Creatinine 1.18 Glucose 140 H Calcium 9.2 Liver Function 11/24/21 Range/Units 05:42 Total Bilirubin 0.9 (0.2-1.0) mg/dl AST 19 (13-39) U/L ALT 11 (7-52) U/L Alkaline Phosphatase 115 H (34-104) U/L Albumin 3.4 (3.4-5.0) gm/dl (1) UTI (urinary tract infection) Hematuria presence: without hematuria Urinary tract infection type: site unspecified Qualified Code(s): N39.0 - Urinary tract infection, site not specified
[2021-11-24] MEDS: MONTELUKAST SODIUM 10 MG TABLET PO SCH (17:00)
[2021-11-24] MEDS: ENOXAPARIN INJ 40 MG/0.4 ML SYR SQ SCH (21:37)
[2021-11-25] MEDS: CEFEPIME 2,000 MG in SYRINGE 0 ML IV SCH (02:04)
[2021-11-25] MEDS: PANTOprazole 40 MG TAB PO SCH (05:49)
[2021-11-25] MEDS: LEVOTHYROXINE SODIUM 88 MCG TABLET PO SCH (05:49)
[2021-11-25] MEDS ORDERED: ERTAPENEM CONSULT ACTIVE PRN (08:09)
[2021-11-25] MEDS: INSULIN ASPART PER UNIT SC SCH ×4 (09:37→20:46)
[2021-11-25] MEDS: INSULIN GLARGINE SOLOSTAR 100 UNITS/ML 3 ML PEN SC SCH ×2 (09:38→20:47)
[2021-11-25] MEDS: ERTAPENEM SODIUM 1,000 MG in SYRINGE 0 ML IV SCH (09:42)
[2021-11-25] MEDS: ASPIRIN 81 MG ECTAB PO SCH (09:46)
[2021-11-25] MEDS: ISOSORBIDE MONO EXTENDED REL 30 MG TABCR PO SCH (09:46)
[2021-11-25] MEDS: SPIRONOLACTONE 25 MG TAB PO SCH ×2 (09:46→20:43)
[2021-11-25] MEDS: rifAXIMin 550 MG TABLET PO SCH ×2 (09:46→20:47)
[2021-11-25] MEDS: lamoTRIgine 25 MG TAB PO SCH ×2 (09:46→20:42)
[2021-11-25] MEDS: VENLAFAXINE HCL XR 150 MG CAPXR PO SCH (09:46)
[2021-11-25] MEDS: METOPROLOL SUCC 50MG EXT REL TAB PO SCH ×2 (09:46→20:43)
[2021-11-25] MEDS: TORSEMIDE 20 MG TAB PO SCH (09:46)
[2021-11-25] MEDS: GABAPENTIN 300 MG CAP PO SCH ×2 (09:46→20:43)
[2021-11-25] MEDS: VENLAFAXINE HCL XR 75 MG CAPXR PO SCH (09:46)
[2021-11-25] MEDS: OXYBUTYNIN CHLORIDE XL 5 MG TABCR PO SCH (09:47)
[2021-11-25] MEDS: ATORVASTATIN 40 MG TAB PO SCH (09:47)
[2021-11-25] MEDS: lamoTRIgine 100 MG TAB PO SCH (09:47)
[2021-11-25] MEDS: TAMSULOSIN HCL 0.4 MG CAP PO SCH (09:47)
[2021-11-25] MEDS: LACTULOSE SYRUP 10 GM/15 ML BTL 960 ML PO SCH ×2 (09:48→20:43)
[2021-11-25] MEDS: MoRPHine SULFATE CR 15 MG TABCR PO SCH ×2 (09:49→20:38)
[2021-11-25 09:50] LABS: Hematocrit (blood only) 39.4 % (37-47); Hemoglobin 12.9 g/dL (12.0-16.0); Mean Corpuscular Hemoglobin 24.6 pg (25-34); Mean Corpuscular Hgb Conc 32.7 g/dL (32-36); Mean Platelet Volume 9.8 fL (7.4-10.4); Platelet Count 131 K/uL (130-400); RDW Coefficient of Variation 17.4 % (11.5-14.5); RDW Standard Deviation 47.8 fL (36.4-46.3); Red Blood Count 5.25 M/uL (4.2-5.4); White Blood Count 8.12 K/uL (4.8-10.8)
[2021-11-25] MEDS: clonazePAM 0.5 MG TAB PO SCH ×3 (09:55→20:38)
[2021-11-25] MEDS: oxyCODONE HCL IR 5 MG TAB (IMMEDIATE RELEASE) PO PRN (09:55)
[2021-11-25 10:08] LABS: BUN Creatinine Ratio 12.4 (10-20); Calcium 9.2 mg/dl (8.5-10.1); Creatinine Clr Calc Pharmacy 60.2 ml/min; Est GFR (African American) 56.2 ml/min; Est GFR (Non-African American) 48.5 ml/min; Potassium 3.8 mmol/L (3.5-5.1)
[2021-11-25] MEDS: ACETAMINOPHEN 325 MG TAB PO PRN (16:13)
[2021-11-25] MEDS: MONTELUKAST SODIUM 10 MG TABLET PO SCH (16:14)
[2021-11-25] MEDS: ENOXAPARIN INJ 40 MG/0.4 ML SYR SQ SCH (20:40)
--- NOTE | 2021-11-25 21:17 | Hospitalist Progress Note ---
Date of Service November 25, 2021 Assessment & Plan (1) UTI (urinary tract infection): Plan: Patient is a 71 yr female with H/O DM II, cirrhosis, hepatic encephalopathy, HTN, chronic diastolic CHF, CAD s/p stent, moderate aortic stenosis, h/o UTI, Eduibsc-mueei-zyfiq, thrombocytopenia, bipolar disorder presented to ER with c/o urinary frequency, dysuria, change in color of urine x 1.5 weeks ago. Fever 101F. Urinary tract infection H/O proteus UTI in 10/07/21, h/o enterococcus faecium VRE and e.coli ESBL in 2019. Blood cultures pending Urine culture growing ESBL E. coli Continue Cefepime>> changed to ertapenem Day #1 DM II A1c: 8.3 on 11/01/2021 Hold Trulicity Basal bolus insulin per protocol Monitor Chronic Diastolic CHF: Appears euvolemic continue torsemide, spironolactone HTN: continue metoprolol succinate Chronic hyponatremia Monitor Sodium levels Sodium 129 today Cirrhosis of Liver No hepatic encephalopathy Continue torsemide, spironolactone, lactulose, Xifaxan Hypothyroidism: Continue levothyroxine Bipolar Disorder Continue home meds Chronic Pain Syndrome: Continue morphine ER and as needed oxycodone, continue gabapentin DVT Px Lovenox SQ Code Status DNR/DNI Follows with Dr Domínguez for routine care Admission and Anticipated Discharge Date Admission Date: November 23, 2021 Subjective Patient is seen and examined at bedside States having nausea, abdominal discomfort today Discussed with patient's daughter in detail over the phone Urine culture growing ESBL E. coli Denies any chest pain, dyspnea, dizziness, nausea, abdominal pain, hematuria Review of Systems Review of Systems: All systems reviewed & are unremarkable except as noted in Subjective Physical Exam Physical Exam: Physical Exam: Vitals signs as noted above General Appearance:Obese, no apparent distress Head: normocephalic, Atraumatic Eyes: normal inspection, EOMI Neck: supple, Trachea midline Respiratory/Chest: Normal breath sounds, CTA, No accessory muscle use Cardiovascular: S1, S2, + murmur Abdomen/GI:Soft, Non tender, Bowel sounds present Extremities/Musculoskeletal:normal inspection, no edema Neurologic/Psych:AAOX3, grossly no focal neurological deficits Skin: normal color, warm Results & Data Results & Data ([facility]) Vital Signs (Past 12 Hours) Vital Signs Temp Pulse Resp BP Pulse Ox 05/22/22 20:44 36.5 C 75 14 130/77 94 Laboratory Results Short CBC 11/25/21 Range/Units 09:15 WBC 8.12 (4.8-10.8) K/uL Hgb 12.9 (12.0-16.0) g/dL Hct 39.4 (37-47) % Plt Count 131 (130-400) K/uL BMP 11/25/21 11/25/21 09:15 16:45 Sodium 127 L 129 L Potassium 3.8 Chloride 90 L Carbon Dioxide 28 BUN 14 Creatinine 1.13 Glucose 156 H Calcium 9.2 (1) UTI (urinary tract infection) Hematuria presence: without hematuria Urinary tract infection type: site unspecified Qualified Code(s): N39.0 - Urinary tract infection, site not specified
[2021-11-26] MEDS: LEVOTHYROXINE SODIUM 88 MCG TABLET PO SCH (06:16)
[2021-11-26] MEDS: PANTOprazole 40 MG TAB PO SCH (06:16)
[2021-11-26 08:25] LABS: Hemoglobin 11.7 g/dL (12.0-16.0); Mean Corpuscular Hemoglobin 23.6 pg (25-34); Mean Corpuscular Hgb Conc 31.6 g/dL (32-36); Mean Corpuscular Volume 74.6 fL (80-100); Mean Platelet Volume 9.9 fL (7.4-10.4); Platelet Count 132 K/uL (130-400); RDW Coefficient of Variation 17.4 % (11.5-14.5); RDW Standard Deviation 46.7 fL (36.4-46.3); Red Blood Count 4.96 M/uL (4.2-5.4); White Blood Count 6.52 K/uL (4.8-10.8)
[2021-11-26 08:50] LABS: Calcium 9.1 mg/dl (8.5-10.1); Creatinine Clr Calc Pharmacy 57.6 ml/min; Est GFR (African American) 53.4 ml/min; Potassium 3.7 mmol/L (3.5-5.1)
[2021-11-26] MEDS: INSULIN ASPART PER UNIT SC SCH ×4 (08:54→21:31)
[2021-11-26] MEDS: clonazePAM 0.5 MG TAB PO SCH ×3 (09:03→21:36)
[2021-11-26] MEDS: oxyCODONE HCL IR 5 MG TAB (IMMEDIATE RELEASE) PO PRN (09:03)
[2021-11-26] MEDS: OXYBUTYNIN CHLORIDE XL 5 MG TABCR PO SCH (09:03)
[2021-11-26] MEDS: ERTAPENEM SODIUM 1,000 MG in SYRINGE 0 ML IV SCH (09:03)
[2021-11-26] MEDS: lamoTRIgine 25 MG TAB PO SCH ×2 (09:04→20:14)
[2021-11-26] MEDS: ATORVASTATIN 40 MG TAB PO SCH (09:04)
[2021-11-26] MEDS: METOPROLOL SUCC 50MG EXT REL TAB PO SCH ×2 (09:05→20:14)
[2021-11-26] MEDS: VENLAFAXINE HCL XR 150 MG CAPXR PO SCH (09:05)
[2021-11-26] MEDS: TORSEMIDE 20 MG TAB PO SCH (09:05)
[2021-11-26] MEDS: ASPIRIN 81 MG ECTAB PO SCH (09:05)
[2021-11-26] MEDS: rifAXIMin 550 MG TABLET PO SCH ×2 (09:05→20:15)
[2021-11-26] MEDS: ISOSORBIDE MONO EXTENDED REL 30 MG TABCR PO SCH (09:05)
[2021-11-26] MEDS: SPIRONOLACTONE 25 MG TAB PO SCH ×2 (09:05→20:14)
[2021-11-26] MEDS: lamoTRIgine 100 MG TAB PO SCH (09:06)
[2021-11-26] MEDS: TAMSULOSIN HCL 0.4 MG CAP PO SCH (09:06)
[2021-11-26] MEDS: GABAPENTIN 300 MG CAP PO SCH ×2 (09:06→20:15)
[2021-11-26] MEDS: VENLAFAXINE HCL XR 75 MG CAPXR PO SCH (09:06)
[2021-11-26] MEDS: LACTULOSE SYRUP 10 GM/15 ML BTL 960 ML PO SCH ×2 (09:06→21:43)
[2021-11-26] MEDS: MoRPHine SULFATE CR 15 MG TABCR PO SCH ×2 (09:06→21:36)
[2021-11-26] MEDS: INSULIN GLARGINE SOLOSTAR 100 UNITS/ML 3 ML PEN SC SCH ×2 (09:18→21:32)
[2021-11-26] MEDS: FAMOTIDINE 10 MG TABLET PO SCH ×2 (13:10→20:15)
[2021-11-26] MEDS: MONTELUKAST SODIUM 10 MG TABLET PO SCH (15:50)
--- NOTE | 2021-11-26 18:06 | Hospitalist Progress Note ---
Date of Service November 26, 2021 Assessment & Plan (1) UTI (urinary tract infection): Plan: Patient is a 71 yr female with H/O DM II, cirrhosis, hepatic encephalopathy, HTN, chronic diastolic CHF, CAD s/p stent, moderate aortic stenosis, h/o UTI, [id number], thrombocytopenia, bipolar disorder presented to ER with c/o urinary frequency, dysuria, change in color of urine x 1.5 weeks ago. Fever 101F. Urinary tract infection H/O proteus UTI in 10/07/21, h/o enterococcus faecium VRE and e.coli ESBL in 2019. Blood cultures Negative to date Urine culture growing ESBL E. coli Continue Cefepime>> changed to ertapenem Day #2 Continue current medications DM II A1c: 8.3 on 11/01/2021 Hold Trulicity Basal bolus insulin per protocol Monitor Chronic Diastolic CHF: Appears euvolemic continue torsemide, spironolactone HTN: continue metoprolol succinate Chronic hyponatremia Monitor Sodium levels Sodium 129 today Cirrhosis of Liver No hepatic encephalopathy Continue torsemide, spironolactone, lactulose, Xifaxan Hypothyroidism: Continue levothyroxine Bipolar Disorder Continue home meds Chronic Pain Syndrome: Continue morphine ER and as needed oxycodone, continue gabapentin DVT Px Lovenox SQ Code Status DNR/DNI Follows with Dr Domínguez for routine care Admission and Anticipated Discharge Date Admission Date: November 23, 2021 Subjective Patient is seen and examined at bedside States having minimal dysuria Also reports abdominal bloating Eager to get discharged And no other complaints Denies any chest pain, dyspnea, dizziness Review of Systems Review of Systems: All systems reviewed & are unremarkable except as noted in Subjective Physical Exam Physical Exam: Physical Exam: Vitals signs as noted above General Appearance:Obese, no apparent distress Head: normocephalic, Atraumatic Eyes: normal inspection, EOMI Neck: supple, Trachea midline Respiratory/Chest: Normal breath sounds, CTA, No accessory muscle use Cardiovascular: S1, S2, + murmur Abdomen/GI:Soft, Non tender, Bowel sounds present Extremities/Musculoskeletal:normal inspection, no edema Neurologic/Psych:AAOX3, grossly no focal neurological deficits Skin: normal color, warm Results & Data Results & Data ([facility]) Vital Signs (Past 12 Hours) Vital Signs Temp Pulse Resp BP BP Pulse Ox 11/26/21 18:00 71 18 95 11/26/21 15:27 36.7 C 77 18 111/75 98 11/26/21 07:57 36.7 C 73 17 121/63 94 11/26/21 06:31 36.6 C 76 16 121/77 99 Laboratory Results Short CBC 11/26/21 Range/Units 07:58 WBC 6.52 (4.8-10.8) K/uL Hgb 11.7 L (12.0-16.0) g/dL Hct 37.0 (37-47) % Plt Count 132 (130-400) K/uL BMP 11/26/21 11/26/21 07:58 16:01 Sodium 127 L 129 L Potassium 3.7 Chloride 90 L Carbon Dioxide 29 BUN 13 Creatinine 1.18 Glucose 164 H Calcium 9.1 (1) UTI (urinary tract infection) Hematuria presence: without hematuria Urinary tract infection type: site unspecified Qualified Code(s): N39.0 - Urinary tract infection, site not specified
[2021-11-26] MEDS: ENOXAPARIN INJ 40 MG/0.4 ML SYR SQ SCH (20:13)
[2021-11-26] MEDS: ARIPIprazole 1 MG/ML ORAL SOLN 150 ML BTL PO SCH (20:15)
[2021-11-27] MEDS: ACETAMINOPHEN 325 MG TAB PO PRN (05:33)
[2021-11-27] MEDS: PANTOprazole 40 MG TAB PO SCH (05:33)
[2021-11-27] MEDS: LEVOTHYROXINE SODIUM 88 MCG TABLET PO SCH (05:33)
[2021-11-27 06:55] LABS: BUN Creatinine Ratio 11.8 (10-20); Blood Urea Nitrogen 13 mg/dl (6-23); Calcium 8.7 mg/dl (8.5-10.1); Carbon Dioxide 28 mmol/L (21-32); Chloride 89 mmol/L (98-107); Creatinine Clr Calc Pharmacy 61.8 ml/min; Est GFR (African American) 58.1 ml/min; Est GFR (Non-African American) 50.1 ml/min; Glucose 99 mg/dl (70-99(Fasting))
[2021-11-27 08:03] LABS: Potassium 3.8 mmol/L (3.5-5.1)
[2021-11-27] MEDS: MoRPHine SULFATE CR 15 MG TABCR PO SCH (08:16)
[2021-11-27] MEDS: OXYBUTYNIN CHLORIDE XL 5 MG TABCR PO SCH (08:20)
[2021-11-27] MEDS: VENLAFAXINE HCL XR 75 MG CAPXR PO SCH (08:20)
[2021-11-27] MEDS: ATORVASTATIN 40 MG TAB PO SCH (08:20)
[2021-11-27] MEDS: TAMSULOSIN HCL 0.4 MG CAP PO SCH (08:20)
[2021-11-27] MEDS: VENLAFAXINE HCL XR 150 MG CAPXR PO SCH (08:21)
[2021-11-27] MEDS: ISOSORBIDE MONO EXTENDED REL 30 MG TABCR PO SCH (08:21)
[2021-11-27] MEDS: ASPIRIN 81 MG ECTAB PO SCH (08:21)
[2021-11-27] MEDS: SPIRONOLACTONE 25 MG TAB PO SCH (08:21)
[2021-11-27] MEDS: lamoTRIgine 100 MG TAB PO SCH (08:21)
[2021-11-27] MEDS: rifAXIMin 550 MG TABLET PO SCH ×2 (08:21→20:18)
[2021-11-27] MEDS: TORSEMIDE 20 MG TAB PO SCH (08:21)
[2021-11-27] MEDS: ERTAPENEM SODIUM 1,000 MG in SYRINGE 0 ML IV SCH ×2 (08:21→11:34)
[2021-11-27] MEDS: lamoTRIgine 25 MG TAB PO SCH ×2 (08:21→20:17)
[2021-11-27] MEDS: METOPROLOL SUCC 50MG EXT REL TAB PO SCH ×2 (08:22→20:19)
[2021-11-27] MEDS: GABAPENTIN 300 MG CAP PO SCH ×2 (08:22→20:18)
[2021-11-27] MEDS: FAMOTIDINE 10 MG TABLET PO SCH ×2 (08:22→20:18)
[2021-11-27] MEDS: clonazePAM 0.5 MG TAB PO SCH ×3 (08:24→20:29)
[2021-11-27] MEDS: INSULIN ASPART PER UNIT SC SCH ×4 (09:31→20:41)
[2021-11-27] MEDS: INSULIN GLARGINE SOLOSTAR 100 UNITS/ML 3 ML PEN SC SCH ×2 (09:32→20:53)
[2021-11-27] MEDS: LACTULOSE SYRUP 10 GM/15 ML BTL 960 ML PO SCH ×2 (09:32→20:19)
[2021-11-27] MEDS: MONTELUKAST SODIUM 10 MG TABLET PO SCH (15:16)
--- NOTE | 2021-11-27 16:42 | Hospitalist Progress Note ---
Date of Service November 27, 2021 Assessment & Plan (1) UTI (urinary tract infection): Plan: Patient is a 71 yr female with H/O DM II, cirrhosis, hepatic encephalopathy, HTN, chronic diastolic CHF, CAD s/p stent, moderate aortic stenosis, h/o UTI, Ydzewvm-rjogh-[id number], thrombocytopenia, bipolar disorder presented to ER with c/o urinary frequency, dysuria, change in color of urine x 1.5 weeks ago. Fever 101F. Urinary tract infection H/O proteus UTI in 10/07/21, h/o enterococcus faecium VRE and e.coli ESBL in 2019. Blood cultures Negative to date Urine culture growing ESBL E. coli Continue Cefepime>> changed to ertapenem Day #3 Continue current medications Intermittent Confusion ? Multifactorial--- narcotic pain medications, hyponatremia, troponin Oriented x3 but intermittently confused Normal Ammonia levels Urine consider CT head if needed Minimize narcotic use DM II A1c: 8.3 on 11/01/2021 Hold Trulicity Basal bolus insulin per protocol Monitor Chronic Diastolic CHF: Appears euvolemic continue torsemide, spironolactone HTN: continue metoprolol succinate Chronic hyponatremia Monitor Sodium levels Sodium 128 today Fluid restriction Cirrhosis of Liver No hepatic encephalopathy Continue torsemide, spironolactone, lactulose, Xifaxan Hypothyroidism: Continue levothyroxine Bipolar Disorder Continue home meds Chronic Pain Syndrome: Continue morphine ER and as needed oxycodone, continue gabapentin DVT Px Lovenox SQ Code Status DNR/DNI Follows with Dr Domínguez for routine care Admission and Anticipated Discharge Date Admission Date: November 23, 2021 Subjective Patient is seen and examined at bedside "I feel confused" Also states having minimal dysuria Oriented X3 but intermittently confused Denies any chest pain, dyspnea, dizziness, abd pain Review of Systems Review of Systems: All systems reviewed & are unremarkable except as noted in Subjective Physical Exam Physical Exam: Physical Exam: Vitals signs as noted above General Appearance:Obese, no apparent distress Head: normocephalic, Atraumatic Eyes: normal inspection, EOMI Neck: supple, Trachea midline Respiratory/Chest: Normal breath sounds, CTA, No accessory muscle use Cardiovascular: S1, S2, + murmur Abdomen/GI:Soft, Non tender, Bowel sounds present Extremities/Musculoskeletal:normal inspection, no edema Neurologic/Psych:AAOX3, grossly no focal neurological deficits Skin: normal color, warm Results & Data Results & Data ([facility] [place]) Vital Signs (Past 12 Hours) Vital Signs Temp Pulse Resp BP BP Pulse Ox 11/27/21 15:29 36.6 C 64 16 110/64 90 11/27/21 08:44 36.4 C L 67 16 120/66 92 Laboratory Results BMP 11/26/21 11/27/21 11/27/21 16:01 05:51 07:31 Sodium 129 L TNP 126 L Potassium TNP 3.8 Chloride 89 L Carbon Dioxide 28 BUN 13 Creatinine 1.10 Glucose 99 Calcium 8.7 11/27/21 14:18 Sodium 128 L Potassium Chloride Carbon Dioxide BUN Creatinine Glucose Calcium (1) UTI (urinary tract infection) Hematuria presence: without hematuria Urinary tract infection type: site unspecified Qualified Code(s): N39.0 - Urinary tract infection, site not specified
[2021-11-27] MEDS: ARIPIprazole 1 MG/ML ORAL SOLN 150 ML BTL PO SCH (20:17)
[2021-11-27] MEDS: ENOXAPARIN INJ 40 MG/0.4 ML SYR SQ SCH (20:29)
[2021-11-28] MEDS: LEVOTHYROXINE SODIUM 88 MCG TABLET PO SCH (05:31)
[2021-11-28] MEDS: PANTOprazole 40 MG TAB PO SCH (05:33)
[2021-11-28 06:11] LABS: Hematocrit (blood only) 36.1 % (37-47); Hemoglobin 11.7 g/dL (12.0-16.0); Mean Corpuscular Hemoglobin 24.5 pg (25-34); Mean Corpuscular Hgb Conc 32.4 g/dL (32-36); Mean Corpuscular Volume 75.5 fL (80-100); Mean Platelet Volume 10.3 fL (7.4-10.4); Platelet Count 141 K/uL (130-400); RDW Coefficient of Variation 17.4 % (11.5-14.5); RDW Standard Deviation 47.5 fL (36.4-46.3); Red Blood Count 4.78 M/uL (4.2-5.4); White Blood Count 8.19 K/uL (4.8-10.8)
[2021-11-28 06:36] LABS: BUN Creatinine Ratio 11.8 (10-20); Creatinine Clr Calc Pharmacy 61.8 ml/min; Est GFR (African American) 58.1 ml/min; Est GFR (Non-African American) 50.1 ml/min; Potassium 3.6 mmol/L (3.5-5.1)
[2021-11-28] MEDS: rifAXIMin 550 MG TABLET PO SCH (08:34)
[2021-11-28] MEDS: lamoTRIgine 25 MG TAB PO SCH (08:34)
[2021-11-28] MEDS: FAMOTIDINE 10 MG TABLET PO SCH (08:34)
[2021-11-28] MEDS: METOPROLOL SUCC 50MG EXT REL TAB PO SCH (08:34)
[2021-11-28] MEDS: GABAPENTIN 300 MG CAP PO SCH (08:34)
[2021-11-28] MEDS: INSULIN GLARGINE SOLOSTAR 100 UNITS/ML 3 ML PEN SC SCH (08:36)
[2021-11-28] MEDS: clonazePAM 0.5 MG TAB PO SCH (08:43)
[2021-11-28] MEDS: OXYBUTYNIN CHLORIDE XL 5 MG TABCR PO SCH (08:43)
[2021-11-28] MEDS: TAMSULOSIN HCL 0.4 MG CAP PO SCH (08:44)
[2021-11-28] MEDS: VENLAFAXINE HCL XR 75 MG CAPXR PO SCH (08:44)
[2021-11-28] MEDS: ATORVASTATIN 40 MG TAB PO SCH (08:44)
[2021-11-28] MEDS: ASPIRIN 81 MG ECTAB PO SCH (08:44)
[2021-11-28] MEDS: VENLAFAXINE HCL XR 150 MG CAPXR PO SCH (08:44)
[2021-11-28] MEDS: ISOSORBIDE MONO EXTENDED REL 30 MG TABCR PO SCH (08:44)
[2021-11-28] MEDS: LACTULOSE SYRUP 10 GM/15 ML BTL 960 ML PO SCH (08:45)
[2021-11-28] MEDS: ERTAPENEM SODIUM 1,000 MG in SYRINGE 0 ML IV SCH (08:45)
[2021-11-28] MEDS: lamoTRIgine 100 MG TAB PO SCH (08:46)
[2021-11-28] MEDS: INSULIN ASPART PER UNIT SC SCH ×2 (08:46→13:03)
--- NOTE | 2021-11-28 12:47 | Hospitalist Progress Note ---
Date of Service November 28, 2021 Assessment & Plan (1) UTI (urinary tract infection): Plan: per Dr. Schreiber's notes (previous hospitalist) with addendum: Patient is a 71 yr female with H/O DM II, cirrhosis, hepatic encephalopathy, HTN, chronic diastolic CHF, CAD s/p stent, moderate aortic stenosis, h/o UTI, Scpmrax-[id number], thrombocytopenia, bipolar disorder presented to ER with c/o urinary frequency, dysuria, change in color of urine x 1.5 weeks ago. Fever 101 F. Urinary tract infection H/O proteus UTI in 10/07/21, h/o enterococcus faecium VRE and e.coli ESBL in 2019. Blood cultures Negative to date Urine culture growing ESBL E. coli Continue Cefepime>> changed to ertapenem Day #4 -- alert, oriented x 3 today discussed with patient's daughter Carolyn: agreeable for discharge today Ertapenem x 3 more days to complete 7 days Carolyn would like to obtain second opinion from [facility] in [place] re: recurrent UTI also recommend referral to [facility] for possible suppressive antibiotic therapy Intermittent Confusion ? Multifactorial--- narcotic pain medications, hyponatremia, troponin Oriented x3 but intermittently confused Normal Ammonia levels Urine consider CT head if needed Minimize narcotic use DM II A1c: 8.3 on 11/01/2021 resume usual regimen ff up with PCP Chronic Diastolic CHF: Appears euvolemic continue torsemide, spironolactone HTN: continue metoprolol succinate Chronic hyponatremia Na 129- at baseline Cirrhosis of Liver No hepatic encephalopathy Continue torsemide, spironolactone, lactulose, Xifaxan Hypothyroidism: Continue levothyroxine Bipolar Disorder Continue home meds Chronic Pain Syndrome: Continue morphine ER and as needed oxycodone, continue gabapentin DVT Px Lovenox SQ Code Status DNR/DNI Disposition d/c home with home health services ff up with PCP in 1 week plan of care discussed with patient/s daughter Carolyn in detail and at length all questions answered she is understanding, agreeable, comfortable with the plan of care Admission and Anticipated Discharge Date Admission Date: November 23, 2021 Subjective ff up for UTI, etc seen resting in bed, comfortable sitting up at the edge of the bed alert, oriented x 3, answers all questions appropriately in detail states she feels tired, has some dysuria but otherwise feels fine no chest pain, dyspnea, palpitations, dizziness no other symptoms Review of Systems Review of Systems: all noted and negative except for above Physical Exam Physical Exam: General- oriented x 3, not in distress, speaks in sentences with no effort or accessory muscle use Eyes- anicteric Neck- no JVD Lungs- clear breath sounds bilaterally, no rales/wheezes Heart- normal rate, regular rhythm; no murmurs Abdomen- normal bowel sounds, nondistended, soft, nontender Extremities- no pretibial edema, no calf tenderness Neuro- alert, oriented x 3; no gross focal neurologic deficits Skin- warm & dry Results & Data Results & Data ([facility]) Vital Signs (Past 12 Hours) Vital Signs Temp Pulse Resp BP Pulse Ox 11/28/21 07:59 36.5 C 68 15 140/70 92 all noted and reviewed including below (1) UTI (urinary tract infection) Hematuria presence: without hematuria Urinary tract infection type: site unspecified Qualified Code(s): N39.0 - Urinary tract infection, site not specified
--- NOTE | 2021-11-28 13:02 | Discharge Summary ---
Date of Service November 28, 2021 Admission HPI Per Admitting Provider Patient is 71 y/o F with PMH DM II, cirrhosis, hepatic encephalopathy, HTN, chronic diastolic CHF, CAD s/p stent, moderate aortic stenosis, h/o UTI, Xcepugr-ksulh-zqgpy, thrombocytopenia, bipolar disorder presented to ER with c/o urinary frequency, dysuria, change in color of urine x 1.5 weeks ago. Has been having chills at home. Temps at home 101F. Today 100.6F. Vomited a couple of times over past 2 weeks. last vomited approximately 5 days ago. Abdominal discomfort lower abdomen for 5 days. Diarrhea 5 days ago. Last BM yesterday and was formed stool. Has been coughing for months. Feels like needs to cough stuff up however unable to bring it up. reports has had testing and nothing has showed up. Does report daughter smokes 1ppd in house. Also c/o headache intermittently for past week. Little sore throat for past 2 days. Chronic bilateral lower extremity pain feels is at baseline. Denies diaphoresis, emesis, hematochezia, melena, dizziness, syncope, vision changes, neck pain, CP, SOB, orthopnea, palpitations, choking, otalgia, rhinorrhea, paresthesias, weakness, extremity edema, rashes, hematuria. Prior charts and labs reviewed H/O proteus UTI in 10/07/21, h/o enterococcus faecium VRE and e.coli ESBL in 2019. Admission Exam Per Admitting Provider General: no distress, obese Head: normocephalic, atraumatic Eyes: PERRL, EOM's intact, conjunctiva non-injected, anicteric ENT: normal inspection external ears, nose, mucous membranes moist Neck: supple, trachea midline Lungs: clear, no respiratory distress, no wheezing/rhonchi/rales CV: RRR, + murmur, trace pretibial edema Abd: normal BS, soft, +right CVA tenderness to palpation, otherwise abdomen non- tender Ext: no cyanosis, no calf tenderness Neuro: A&O x 3, no focal deficits noted, normal affect Skin: warm, dry Principal Diagnosis ESBL E COLI URINARY TRACT INFECTION Discharge Exam General- oriented x 3, not in distress, speaks in sentences with no effort or accessory muscle use Eyes- anicteric Neck- no JVD Lungs- clear breath sounds bilaterally, no rales/wheezes Heart- normal rate, regular rhythm; no murmurs Abdomen- normal bowel sounds, nondistended, soft, nontender Extremities- no pretibial edema, no calf tenderness Neuro- alert, oriented x 3; no gross focal neurologic deficits Skin- warm & dry Discharge Data Allergies Allergy/AdvReac Type Severity Reaction Status Date / Time propoxyphene Allergy Mild Rash Verified 10/10/21 13:26 fentanyl AdvReac Intermediate PANIC Verified 10/10/21 13:26 WANTS TO RUN AND AGGRESSIVE zolpidem AdvReac Intermediate confusion Verified 10/10/21 13:26 methocarbamol AdvReac Mild DELERIUM Verified 10/10/21 13:26 Consultations 11/23/21 14:39 ED Decision to Admit Stat Hospital Course (1) UTI (urinary tract infection): per Dr. Schreiber's notes (previous hospitalist) with addendum: Patient is a 71 yr female with H/O DM II, cirrhosis, hepatic encephalopathy, HTN, chronic diastolic CHF, CAD s/p stent, moderate aortic stenosis, h/o UTI, Irgicry-axiil-rppsf, thrombocytopenia, bipolar disorder presented to ER with c/o urinary frequency, dysuria, change in color of urine x 1.5 weeks ago. Fever 101F. Urinary tract infection H/O proteus UTI in 10/07/21, h/o enterococcus faecium VRE and e.coli ESBL in 2019. Blood cultures Negative to date Urine culture growing ESBL E. coli Continue Cefepime>> changed to ertapenem Day #4 -- alert, oriented x 3 today discussed with patient's daughter Carolyn: agreeable for discharge today Ertapenem x 3 more days to complete 7 days Carolyn would like to obtain second opinion from [facility] in [place] re: recurrent UTI also recommend referral to [facility] for possible suppressive antibiotic therapy Intermittent Confusion ? Multifactorial--- narcotic pain medications, hyponatremia, troponin Oriented x3 but intermittently confused Normal Ammonia levels Urine consider CT head if needed Minimize narcotic use DM II A1c: 8.3 on 11/01/2021 resume usual regimen ff up with PCP Chronic Diastolic CHF: Appears euvolemic continue torsemide, spironolactone HTN: continue metoprolol succinate Chronic hyponatremia Na 129- at baseline Cirrhosis of Liver No hepatic encephalopathy Continue torsemide, spironolactone, lactulose, Xifaxan Hypothyroidism: Continue levothyroxine Bipolar Disorder Continue home meds Chronic Pain Syndrome: Continue morphine ER and as needed oxycodone, continue gabapentin DVT Px Lovenox SQ Code Status DNR/DNI Disposition d/c home with home health services ff up with PCP in 1 week plan of care discussed with patient/s daughter Carolyn in detail and at length all questions answered she is understanding, agreeable, comfortable with the plan of care Total Time Total Time Spent Total Time Spent (In Minutes): >30 MINUTES Discharge Plan Discharge Items Patient Disposition: Home - Home Health Services Reason For Visit: UTI Discharge Diagnosis: URINARY TRACT INFECTION- ESBL E COLI Activity: Resume your previous activity Activity Comment: GRADUALLY TOLERATED Lifting: Wait until after follow-up appointment Exercise/Sports: Wait until after follow-up appointment Non-emergency contact: Primary Care Provider Call non-emergency contact if: you have any medication questions, your symptoms worsen, your pain is not controlled, your pain is worsening, your pain is unusual for you, your pain is concerning for you and you have a fever Follow-up/Referrals: Alfredo Panda MD [Outside Practitioners] - (Date & Time 11/30/2021 11:15 AM Provider Alfredo Panda MD Department Urology [facility] ) Brian Domínguez MD [Primary Care Provider] - (Date & Time 12/04/2021 2:00 PM Provider Brian Domínguez MD Department [facility] ) Diet: Carb Consistent or DM2 and Heart Healthy Addtl Attending Provider Instructions: PLEASE REFER TO YOUR NEW MEDICATION LIST AND FOLLOW INSTRUCTIONS CAREFULLY. YOUR NEW MEDICATIONS INCLUDE: ERTAPENEM- antibiotic for UTI, 3 more days PLEASE CALL YOUR PRIMARY CARE PHYSICIAN OR RETURN TO THE ER IF WITH WORSENING OF SYMPTOMS, INCLUDING FEVER/CHILLS, ABDOMINAL PAIN, NAUSEA/VOMITING, CONFUSION, WEAKNESS, ETC. FOLLOW UP WITH PRIMARY CARE PHYSICIAN OUTLINED ABOVE. Pending Studies at Discharge: No Stand-Alone Forms: My [employer], Smoking Cessation Medications and DC Order Prescriptions: New ertapenem 1 gram recon soln 1 g IV DAILY 3 Days RF: 0 Continued levothyroxine 88 mcg tablet 88 mcg PO QAM RF: 0 aripiprazole 2 mg tablet 2 mg PO HS RF: 0 nitroglycerin [Nitrostat] 0.4 mg Tablet, Sublingual 0.4 mg Sublingual DIRECTED PRN (Reason: Chest Pain) RF: 0 albuterol sulfate [Ventolin HFA] 90 mcg/actuation Hfa Aerosol Inhaler 2 puff INHALATION QID PRN (Reason: Shortness Of Breath Or Wheezing) RF: 0 morphine 15 mg Tablet Extended Release 15 mg PO AMHS RF: 0 montelukast 10 mg Tablet 10 mg PO DAILY@1600 RF: 0 Basaglar KwikPen U-100 Insulin 100 unit/mL (3 mL) Insulin Pen 60 unit SUBCUT QAM RF: 0 spironolactone [Aldactone] 50 mg tablet 50 mg PO BID RF: 0 venlafaxine 75 mg capsule,extended release 24hr 75 mg PO QAM RF: 0 metoprolol succinate 50 mg Tablet Extended Release 24 Hr 50 mg PO BID RF: 0 Xifaxan 550 mg Tablet 550 mg PO BID RF: 0 aspirin 81 mg Tablet,Delayed Release (Dr/Ec) 81 mg PO DAILY RF: 0 pantoprazole 40 mg tablet,delayed release (DR/EC) 40 mg PO DAILYBB RF: 0 fluticasone propionate 50 mcg/actuation spray,suspension 2 spray INTRANASAL DAILY RF: 0 oxycodone 5 mg tablet 5 mg PO Q8 PRN (Reason: Outbreak) RF: 0 lactulose 10 gram/15 mL Solution 45 g PO BID RF: 0 Trulicity 3 mg/0.5 mL pen injector 3 mg SUBCUT WK RF: 0 phenazopyridine 200 mg tablet 200 mg PO TIDM PRN (Reason: urination pain) RF: 0 ergocalciferol (vitamin D2) 1,250 mcg (50,000 unit) capsule 1,250 mcg PO WK RF: 0 oxybutynin chloride 10 mg tablet extended release 24hr 10 mg PO QAM RF: 0 tamsulosin 0.4 mg capsule 0.4 mg PO QAM RF: 0 estradiol 0.01 % (0.1 mg/gram) cream 1 applic VAGINAL QAM RF: 0 atorvastatin 40 mg tablet 40 mg PO QAM RF: 0 promethazine 25 mg Tablet 25 mg PO Q6H PRN (Reason: nausea or vomiting) RF: 0 ondansetron HCl 8 mg tablet 8 mg PO Q8 PRN (Reason: Nausea) RF: 0 dicyclomine 10 mg capsule 10 mg PO QID PRN (Reason: Abdominal Pain) RF: 0 torsemide 20 mg tablet 20 mg PO QAM RF: 0 isosorbide mononitrate 30 mg tablet extended release 24 hr 30 mg PO QAM RF: 0 venlafaxine 150 mg capsule,extended release 24hr 150 mg PO QAM RF: 0 gabapentin 300 mg capsule 300 mg PO BID RF: 0 clonazepam 0.5 mg tablet 0.5 mg PO TID RF: 0 lamotrigine 25 mg tablet 25 mg PO DAILY RF: 0 lamotrigine 100 mg tablet 100 mg PO DAILY RF: 0 methenamine hippurate 1 gram tablet 1 g PO DAILY RF: 0 lamotrigine 25 mg tablet 50 mg PO HS RF: 0 Discharge Orders: Discharge Order (Routine); Ordered 11/28/21 Ordered By: Leroy Guevara Admission Data Admit Date/Time: 11/23/21 14:56 Attending Provider: Leroy Guevara Admit Provider: Azucena Smith I. Primary Care Provider: Brian Domínguez Other Providers: Azucena Smith I. ; [facility],Home [facility] ; Hola Schreiber
== END 2021-11-28 15:26 | disposition home health service (06) | DRG 690 ==
LOC: ED 10:08 → 3W 14:56 → SUATTDRO 14:56 → 3W 16:54

== ENCOUNTER 2021-12-07 15:16 | Inpatient (IN) ==
--- NOTE | 2021-12-07 15:38 | Emergency Department Note ---
History of Present Illness General Chief complaint: Fall Stated complaint: Fall Time Seen by Provider: 12/07/21 15:18 History of Present Illness Maximum Pain Intensity: 5 This is a 71-year-old female presenting to the emergency department for evaluation of injuries after a fall that occurred at home. The patient states that she stood up from her chair to go to the bathroom when she slipped, fell backwards onto her buttocks, and then continued backwards striking her head. The patient was not using her walker at the time of the fall. She is not on blood thinners. She is primarily having pain to the left foot and does have a contusion to the left forehead. She rates her discomfort a 5/10 and does arrive via ambulance. She does not report chest pain, chest tightness, shortness of breath, or abdominal pain. She admits that she falls a lot. She does not have other complaints. Home Medications Medication Instructions Recorded Confirmed Type albuterol sulfate 90 mcg/actuation 2 puff INHALATION QID PRN 04/27/18 12/07/21 History aerosol inhaler (Ventolin HFA) aripiprazole 2 mg tablet 2 mg PO HS 04/27/18 12/07/21 History levothyroxine 88 mcg tablet 88 mcg PO QAM 04/27/18 12/07/21 History nitroglycerin 0.4 mg sublingual 0.4 mg SUBLINGUAL DIRECTED PRN 04/27/18 12/07/21 History tablet (Nitrostat) montelukast 10 mg tablet 10 mg PO DAILY@1600 06/11/19 12/07/21 History spironolactone 50 mg tablet 50 mg PO BID 09/15/19 12/07/21 History (Aldactone) venlafaxine 75 mg capsule,extended 75 mg PO QAM 09/15/19 12/07/21 History release 24 hr insulin glargine 100 unit/mL (3 60 unit SUBCUT QAM 12/22/19 12/07/21 History mL) subcutaneous pen (Basaglar KwikPen U-100 Insulin) morphine 15 mg tablet,extended 15 mg PO AMHS 01/16/20 12/07/21 History release metoprolol succinate 50 mg 50 mg PO BID 03/21/20 12/07/21 History tablet,extended release 24 hr rifaximin 550 mg tablet (Xifaxan) 550 mg PO BID 03/21/20 12/07/21 History isosorbide mononitrate 30 mg 30 mg PO QAM 01/07/21 12/07/21 History tablet,extended release 24 hr venlafaxine 150 mg 150 mg PO QAM 01/07/21 12/07/21 History capsule,extended release 24 hr aspirin 81 mg tablet,delayed 81 mg PO DAILY 01/26/21 12/07/21 History release fluticasone propionate 50 2 spray INTRANASAL DAILY 01/26/21 12/07/21 History mcg/actuation nasal spray,suspension lactulose 10 gram/15 mL oral 45 g PO BID 01/26/21 12/07/21 History solution oxycodone 5 mg tablet 5 mg PO Q8 PRN 01/26/21 12/07/21 History pantoprazole 40 mg tablet,delayed 40 mg PO DAILYBB 01/26/21 12/07/21 History release gabapentin 300 mg capsule 300 mg PO BID 02/26/21 12/07/21 History clonazepam 0.5 mg tablet 0.5 mg PO TID 03/23/21 12/07/21 History atorvastatin 40 mg tablet 40 mg PO QAM 10/10/21 12/07/21 History dicyclomine 10 mg capsule 10 mg PO QID PRN 10/10/21 12/07/21 History ergocalciferol (vitamin D2) 1,250 1,250 mcg PO WK 10/10/21 12/07/21 History mcg (50,000 unit) capsule estradiol 1 applic VAGINAL HS 10/10/21 12/07/21 History ondansetron HCl 8 mg tablet 8 mg PO Q8 PRN 10/10/21 12/07/21 History oxybutynin chloride 10 mg 10 mg PO QAM 10/10/21 12/07/21 History tablet,extended release 24 hr tamsulosin 0.4 mg capsule 0.4 mg PO QAM 10/10/21 12/07/21 History torsemide 20 mg tablet 20 - 40 mg PO QAM 10/10/21 12/07/21 History lamotrigine 100 mg tablet 100 mg PO DAILY 11/23/21 12/07/21 History lamotrigine 25 mg tablet 25 mg PO DAILY 11/23/21 12/07/21 History lamotrigine 25 mg tablet 50 mg PO HS 11/23/21 12/07/21 History methenamine hippurate 1 gram 1 g PO BID 11/23/21 12/07/21 History tablet (Hiprex) ascorbic acid (vitamin C) 500 mg 500 mg PO BID 12/07/21 12/07/21 History tablet dulaglutide 4.5 mg/0.5 mL 1.4 mg SUBCUT WK 12/07/21 12/07/21 History subcutaneous pen injector (Trulicity) Allergies Allergy/AdvReac Type Severity Reaction Status Date / Time propoxyphene Allergy Mild Rash Verified 10/10/21 13:26 fentanyl AdvReac Intermediate PANIC Verified 10/10/21 13:26 WANTS TO RUN AND AGGRESSIVE zolpidem AdvReac Intermediate confusion Verified 10/10/21 13:26 methocarbamol AdvReac Mild DELERIUM Verified 10/10/21 13:26 Past Med/Surg History Medical History (Updated 12/08/21 @ 15:20 by Vasquez Dyson PA-C) Anxiety Bipolar disorder CAD (coronary artery disease) History of multiple PCI's to the RCA with subsequent CABG x1 in 2010 x 1 vessel Most recent cardiac testing-negative DSE in December 2017 Follows w/ Dr. Blackwell and Dr. Lucas Rzlsbsp-Ezpyw-Yekwr disease follows w/ Dr. Lemus Chronic diastolic CHF (congestive heart failure) Chronic pain syndrome Depression DM type 2 (diabetes mellitus, type 2) IDDM Dyslipidemia Encephalopathy d/c from [facility] 09/20/19 (hepatic encephalopathy) Gastroparesis GERD (gastroesophageal reflux disease) Hypertension Hypothyroidism Irregular heart beat follows Dr. 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 Lucas History of total right knee replacement Hx of cholecystectomy S/P CABG x 1 2010 - single vessel S/P CARLOS (total abdominal hysterectomy) Family History Father Coronary heart disease Brother Coronary heart disease Father Diabetes Mother Diabetes Social History Smoking Status: Never smoker Second Hand Exposure: Yes (DAUGHTER SMOKES); Hx Alcohol Use: No Hx Substance Use: No Preferred Language: Iraqi Communication Ability: Effective Manager Research Development Required: No Beliefs That Will Affect Care: None marital status: / Current Living Situation: Alone How many Children do You have: 0 Feels Safe at Home: Yes Safety Concerns: Feels Safe At This Time Assistive Devices: Cane, Walker and Wheelchair Review of Systems A total of 10 systems reviewed and were otherwise negative Physical Exam Vital Signs Vital Signs - 24 hr 12/07/21 16:40 12/07/21 18:00 Pulse Rate [Right Radial] 88 68 Pulse Rhythm [Right Radial] Regular Regular Respiratory Rate 20 20 Blood Pressure [Right Arm] 132/78 136/78 Blood Pressure Mean [Right Arm] 96 97 Blood Pressure Position [Right Arm] Semi-fowlers Pulse Oximetry 97 98 Oxygen Delivery Method Room Air VITALS: Vitals are noted on the nurse's note and reviewed by myself. Vital s igns stable. GENERAL: Elderly white female who is mildly confused but overall comfortable and cooperative. HEAD: Small left forehead hematoma/abrasion NECK: Supple without nuchal rigidity. No lymphadenopathy. No thyromegaly. Cervical spine is nontender. HEART: Regular rate and rhythm without murmurs gallops or rubs. LUNGS: Clear to auscultation bilaterally without wheezes, rales or rhonchi. No retractions or accessory muscle use. ABDOMEN: Positive normal bowel sounds x 4. Soft, nontender, without masses or organomegaly. No guarding or rebound tenderness. MUSCULOSKELETAL: Ecchymosis and edema noted over the superior aspect of the left third, fourth, and fifth metatarsals. There is mild lateral edema to the ankle. No gross laceration noted. Patient seems to have full range of motion in extremities. NEURO: Patient was alert and oriented to person place and time. CN II through X II grossly intact. Course Administered Medications Acetaminophen (Acetaminophen 325 Mg Tab) 650 mg PO Q4H PRN PRN Reason: Pain or Fever Stop: 01/06/22 21:27 Last Admin: 12/08/21 14:46 Dose: 650 mg Documented by: [id number] Admin: 12/07/21 22:12 Dose: 650 mg Documented by: [id number] Aripiprazole (Aripiprazole 1 Mg/Ml Oral Soln 150 Ml Btl) 2 mg PO HS ANGELLA Stop: 01/06/22 22:14 Last Admin: 12/07/21 23:08 Dose: 2 mg Documented by: [id number] Ascorbic Acid (Ascorbic Acid 500 Mg Tab) 500 mg PO BID ANGELLA Stop: 01/06/22 22:14 Last Admin: 12/08/21 09:21 Dose: 500 mg Documented by: [id number] Admin: 12/07/21 23:08 Dose: 500 mg Documented by: [id number] Aspirin (Aspirin 81 Mg Ectab) 81 mg PO DAILY ANGELLA Stop: 01/07/22 08:59 Last Admin: 12/08/21 09:21 Dose: 81 mg Documented by: [id number] Atorvastatin Calcium (Atorvastatin 40 Mg Tab) 40 mg PO QAM ANGELLA Stop: 01/07/22 08:59 Last Admin: 12/08/21 09:21 Dose: 40 mg Documented by: [id number] Clonazepam (Clonazepam 0.5 Mg Tab) 0.5 mg PO TID ANGELLA Stop: 01/06/22 22:14 Last Admin: 12/08/21 13:58 Dose: 0.5 mg Documented by: [id number] Admin: 12/08/21 09:19 Dose: 0.5 mg Documented by: [id number] Admin: 12/07/21 23:13 Dose: 0.5 mg Documented by: [id number] Enoxaparin Sodium (Enoxaparin Inj 40 Mg/0.4 Ml Syr) 40 mg SQ HS [facility] Stop: 01/06/22 21:27 Last Admin: 12/07/21 23:07 Dose: 40 mg Documented by: [id number] Fluticasone Propionate (Fluticasone Propionate Na Spr 16 Gm Btl) 2 sprays MADHURI DAILY ANGELLA Stop: 01/07/22 08:59 Last Admin: 12/08/21 09:12 Dose: 2 sprays Documented by: [id number] Gabapentin (Gabapentin 300 Mg Cap) 300 mg PO BID ANGELLA Stop: 01/06/22 22:14 Last Admin: 12/08/21 09:21 Dose: 300 mg Documented by: [id number] Admin: 12/07/21 23:08 Dose: 300 mg Documented by: [id number] Insulin Aspart (Insulin Aspart Per Unit) 0 units SC ACHS ANGELLA Stop: 01/07/22 07:29 Last Admin: 12/08/21 13:39 Dose: Not Given Documented by: [id number] Cosigned by: [id number] Admin: 12/08/21 09:18 Dose: 13 units Documented by: [id number] Cosigned by: [id number] Insulin Glargine (Insulin Glargine Solostar 100 Units/Ml 3 Ml Pen) 0 units SC DAILY ANGELLA Stop: 01/07/22 08:59 Last Admin: 12/08/21 09:11 Dose: 40 units Documented by: [id number] Cosigned by: [id number] Lactulose (Lactulose Syrup 10 Gm/15 Ml Btl 960 Ml) 45 gm PO BID ANGELLA Stop: 01/06/22 21:27 Last Admin: 12/08/21 09:12 Dose: 45 gm Documented by: [id number] Admin: 12/07/21 23:08 Dose: 45 gm Documented by: [id number] Lamotrigine (Lamotrigine 25 Mg Tab) 25 mg PO DAILY ANGELLA Stop: 01/07/22 08:59 Last Admin: 12/08/21 09:20 Dose: 25 mg Documented by: [id number] Lamotrigine (Lamotrigine 100 Mg Tab) 100 mg PO DAILY ANGELLA Stop: 01/07/22 08:59 Last Admin: 12/08/21 09:20 Dose: 100 mg Documented by: [id number] Lamotrigine (Lamotrigine 25 Mg Tab) 50 mg PO HS ANGELLA Stop: 01/06/22 22:14 Last Admin: 12/07/21 23:08 Dose: 50 mg Documented by: [id number] Levothyroxine Sodium (Levothyroxine Sodium 88 Mcg Tablet) 88 mcg PO DAILYBB ANGELLA Stop: 01/07/22 06:29 Last Admin: 12/08/21 05:57 Dose: 88 mcg Documented by: [id number] Methenamine Hippurate (Methenamine Hippurate 1 Gm Tab) 1 gm PO BID ANGELLA Stop: 01/06/22 21:27 Last Admin: 12/08/21 09:20 Dose: 1 gm Documented by: [id number] Admin: 12/07/21 23:10 Dose: 1 gm Documented by: [id number] Miscellaneous (Estrace~Order Awaiting Action) 1 ea N/A QS [facility] Stop: 01/07/22 07:59 Last Admin: 12/08/21 07:34 Dose: Not Given Documented by: [id number] Morphine Sulfate (Morphine Sulfate Cr 15 Mg Tabcr) 15 mg PO AMHS [facility] Stop: 12/21/21 22:14 Last Admin: 12/08/21 09:19 Dose: 15 mg Documented by: [id number] Admin: 12/07/21 23:12 Dose: 15 mg Documented by: [id number] Oxybutynin Chloride (Oxybutynin Chloride Xl 5 Mg Tabcr) [facility] [place] Stop: 01/07/22 08:59 Last Admin: 12/08/21 09:20 Dose: 10 mg Documented by: [id number] Pantoprazole Sodium (Pantoprazole 40 Mg Tab) 40 mg PO DAILYBB [facility] Stop: 01/07/22 06:29 Last Admin: 12/08/21 05:57 Dose: 40 mg Documented by: [id number] Rifaximin (Rifaximin 550 Mg Tablet) 550 mg PO BID [facility] Stop: 01/06/22 22:14 Last Admin: 12/08/21 09:20 Dose: 550 mg Documented by: [id number] Admin: 12/07/21 23:09 Dose: 550 mg Documented by: [id number] Spironolactone (Spironolactone 25 Mg Tab) 50 mg PO BID [facility] Stop: 01/06/22 22:14 Last Admin: 12/08/21 09:19 Dose: 50 mg Documented by: [id number] Admin: 12/07/21 23:09 Dose: 50 mg Documented by: [id number] Tamsulosin HCl (Tamsulosin Hcl 0.4 Mg Cap) 0.4 mg [facility] [place] Stop: 01/07/22 08:59 Last Admin: 12/08/21 09:19 Dose: 0.4 mg Documented by: [id number] Torsemide (Torsemide 20 Mg Tab) [facility] [place] Stop: 01/07/22 08:59 Last Admin: 12/08/21 09:19 Dose: 20 mg Documented by: [id number] Venlafaxine HCl (Venlafaxine Hcl Xr 75 Mg Capxr) 75 [facility] [place] Stop: 01/07/22 08:59 Last Admin: 06/04/22 09:19 Dose: 75 mg Documented by: [id number] Venlafaxine HCl (Venlafaxine Hcl Xr 150 Mg Capxr) 150 mg [facility] [place] Stop: 01/07/22 08:59 Last Admin: 12/08/21 09:19 Dose: 150 mg Documented by: [id number] Discontinued Medications Isosorbide Mononitrate (Isosorbide [place] Extended Rel 30 Mg Tabcr) 30 mg PO QAM [facility] Stop: 01/07/22 08:59 Last Admin: 12/08/21 09:21 Dose: 30 mg Documented by: [id number] Metoprolol Succinate (Metoprolol Succ 50mg Ext Rel Tab) 50 mg PO BID [facility] Stop: 01/06/22 22:14 Last Admin: 12/08/21 09:20 Dose: 50 mg Documented by: [id number] Admin: 12/07/21 23:09 Dose: 50 mg Documented by: [id number] Medical Decision Making Differential Diagnosis Differential diagnosis includes, but is not limited to: Sprain, strain, fracture, dislocation, subluxation, contusion, and others Laboratory Data Result diagrams: 12/08/21 07:17 12/08/21 07:17 Lab Results 12/07/21 12/07/21 12/07/21 Range/Units 15:50 15:50 18:23 WBC 6.49 (4.8-10.8) K/uL RBC 4.84 (4.2-5.4) M/uL Hgb 11.9 L (12.0-16.0) g/dL Hct 36.7 L (37-47) % MCV 75.8 L (80-100) fL MCH 24.6 L (25-34) pg MCHC 32.4 (32-36) g/dL RDW Std Deviation 47.2 H (36.4-46.3) fL RDW Coeff of Guillermo 17.1 H (11.5-14.5) % Plt Count 156 (130-400) K/uL MPV 9.9 (7.4-10.4) fL Immature Gran % (Auto) 0.3 % Neut % (Auto) 55.8 % Lymph % (Auto) 27.9 % [place] % (Auto) 10.9 % Eos % (Auto) 4.6 % Baso % (Auto) 0.5 % Neut # (Auto) 3.62 (1.4-6.5) K/uL Lymph # (Auto) 1.81 (1.2-3.4) K/uL [place] # (Auto) 0.71 H (0.11-0.59) K/uL Eos # (Auto) 0.30 (0-0.5) K/uL Baso # (Auto) 0.03 (0-0.2) K/uL Immature Gran # (Auto) 0.02 (0.00-0.02) K/uL Sodium 134 L (136-145) mmol/L Potassium 3.6 (3.5-5.1) mmol/L Chloride 99 (98-107) mmol/L Carbon Dioxide 26 (21-32) mmol/L Anion Gap 9 (3-11) BUN 10 (6-23) mg/dl Creatinine 1.01 (0.6-1.2) mg/dl Est Cr Clr Drug Dosing Not Reportable Est GFR ( Amer) 64.4 ml/min Est GFR (Non-Af Amer) 55.6 ml/min BUN/Creatinine Ratio 9.9 L (10-20) Glucose 117 H (70-99(Fasting)) mg/dl Calcium 9.3 (8.5-10.1) mg/dl Total Bilirubin 1.1 H (0.2-1.0) mg/dl AST 31 (13-39) U/L ALT 20 (7-52) U/L Alkaline Phosphatase 141 H (34-104) U/L Troponin I High Sens 8.6 (0-14) pg/ml Total Protein 7.1 (6.0-8.3) gm/dl Albumin 3.9 (3.4-5.0) gm/dl Globulin 3.2 (2.5-4.0) gm/dl Albumin/Globulin Ratio 1.2 (0.9-2) SARS-CoV-2, RNA, NAAT NEGATIVE (NEGATIVE) Imaging Data Radiologist's Impression: Ankle X-Ray 12/07/21 15:29 XR foot LT 2V, XR ankle LT 2V HISTORY: 71 years-old Female Fall. Pain/brusing acute pain and swelling of the left foot and ankle status post fall COMPARISON: None TECHNIQUE: 3 views of the left foot with 3 views of the left ankle FINDINGS: FOOT: Demineralized appearance of the bones with mild to moderate multifocal osteoarthritis. Chronic appearing deformity of the fifth PIP joint. Moderate soft tissue swelling is most pronounced within the dorsal forefoot. No acute f racture, dislocation or opaque foreign body. ANKLE: Mild to moderate osteoarthritis of the tibiotalar joint with degenerative spurring of the calcaneus. No acute fracture, dislocation or osteochondral defect. Arterial calcifications. Degenerative spurring of the calcaneus. IMPRESSION: Soft tissue swelling without acute fracture or dislocation. ACT 112: Negative or not required by law. The above report was generated using voice recognition software. It may contain grammatical, syntax or spelling errors. Electronically signed by: Tommie Loredo M.D. 12/07/2021 4:[address] 12/07/21 15:29 CT SCAN OF THE CERVICAL SPINE CLINICAL HISTORY: Fall. Head injury. COMPARISON STUDY: CT of the cervical spine dated 12/03/2021 and 01/07/2021. TECHNIQUE: CT scan of the cervical spine is performed from the skull base to the upper thoracic spine. Images are reviewed in the axial, sagittal, and coronal planes. IV contrast was not administered for this examination. A dose lowering technique was utilized adhering to the principles of ALARA. CT DOSE: 782.54 mGycm FINDINGS: Skeletal structures: The skeletal structures are osteopenic. There is no evidence of acute fracture or subluxation involving the cervical spine. There is a chronic nonunited fracture versus developmental cortical defect within the left pedicle of C6. This is unchanged as compared to prior studies. Vertebral body height and alignment are maintained. A large hemangioma seen in the body of C7. There is a mild chronic compression deformity of T1. There is straightening of cervical lordosis. Small anterior osteophytes are seen throughout. The odontoid process and lateral masses are intact. The atlantoaxial articulation is preserved noting mild productive degenerative change. The spinous processes appear intact. There is mild multilevel cervical spondylosis. Facet arthropathy is noted at several levels. Intervertebral discs: There is moderate disc space narrowing at C4-C5 and C6-C7. Mild disc space narrowing is seen at the remaining cervical levels. Central canal: Posterior disc osteophyte complexes at C6-C7 and C7-T1 may contribute to acquired compromise of the central canal. Soft tissues: The prevertebral and paraspinous soft tissues are within normal limits. There is atherosclerotic calcification of the carotid bulbs. Calvarium: The visualized calvarium at the skull base appears intact. Brain parenchyma: Partially visualized brain parenchyma at the skull base is within normal limits. Sinuses and mastoids: The visualized paranasal sinuses are clear. The mastoid air cells are well pneumatized. Lung apices: Clear as visualized. IMPRESSION: 1. There is no evidence of fracture or subluxation involving the cervical spine. 2. Osteopenia with chronic and spondylotic change as as above. ACT 112: Negative or not required by law. Electronically signed by: Berto Snow M.D. 12/07/2021 4:38 PM Foot X-Ray 12/07/21 15:29 XR foot LT 2V, XR ankle LT 2V HISTORY: 71 years-old Female Fall. Pain/brusing acute pain and swelling of the left foot and ankle status post fall COMPARISON: None TECHNIQUE: 3 views of the left foot with 3 views of the left ankle FINDINGS: FOOT: Demineralized appearance of the bones with mild to moderate multifocal osteoarthritis. Chronic appearing deformity of the fifth PIP joint. Moderate soft tissue swelling is most pronounced within the dorsal forefoot. No acute fracture, dislocation or opaque foreign body. ANKLE: Mild to moderate osteoarthritis of the tibiotalar joint with degenerative spurring of the calcaneus. No acute fracture, dislocation or osteochondral defect. Arterial calcifications. Degenerative spurring of the calcaneus. IMPRESSION: Soft tissue swelling without acute fracture or dislocation. ACT 112: Negative or not required by law. The above report was generated using voice recognition software. It may contain grammatical, syntax or spelling errors. Electronically signed by: Tommie Loredo M.D. 12/07/2021 4:[address] 12/07/21 15:29 CT SCAN OF THE BRAIN WITHOUT IV CONTRAST CLINICAL HISTORY: Fall. COMPARISON STUDY: CT of the brain dated 12/03/2021. TECHNIQUE: Unenhanced axial CT scan of the brain is performed from the vertex to the skull base. A dose lowering technique was utilized adhering to the principles of ALARA. CT DOSE: 720.95 mGycm FINDINGS: Brain parenchyma: There is age-related involutional change noting mild subcortical and periventricular microangiopathic disease. There is no hemorrhage, mass effect, or evidence of acute territorial ischemia by CT criteria. A chronic lacunar infarct is noted in the right thalamus. Garcia-white matter differentiation is preserved. No extra-axial fluid collection is seen. Ventricles, sulci, cisterns: Prominent secondary to involutional change. Intracranial vasculature: There is atherosclerotic calcification of the cavernous carotid and vertebral arteries. Calvarium: The skeletal structures are osteopenic. No depressed calvarial fracture is identified. Sinuses and mastoids: The visualized paranasal sinuses are clear. The mastoid air cells are well pneumatized. Orbits: The bony orbits are grossly intact. There are bilateral ocular lens implants. IMPRESSION: There is no hemorrhage, mass effect, or evidence of acute territorial ischemia by CT criteria. ACT 112: Negative or not required by law. Electronically signed by: Berto Snow M.D. 12/07/2021 4:33 PM ECG Data Additional Comments: Normal sinus rhythm @[address] elevation Left axis deviation Abnormal ECG When compared with ECG of 03-DEC-2021 08:12, No significant change was found MDM Narrative Physical exam and history were performed. Nursing notes, EMR, and Medication List were personally reviewed. Patient appears to have fallen and suffered injuries as above. CT scans of the head and neck were performed as well as plain films. IV access was established and labs are obtained. An order was placed for continuous cardiac monitoring. The monitor shows a rate of 68 with normal sinus rhythm. The patient's blood work is as above and was reviewed. She does not have a significantly elevated white blood cell count, gross anemia, bandemia, or significant electrolyte imbalance. Lipase and transaminases are not diagnostic. Troponin x1 is negative. Imaging studies were reviewed by myself and radiology showing no acute process. I did discuss the case with my attending physician, Dr. Xiong, who also independently evaluated the patient. We did trial an ambulatory study with the patient, and she did very poorly with this. I did explore home services that the patient has available, and usually she is with 16 hours a day and home care. Unfortunately the patient's primary caregiver is not available this weekend. I also reached out to the patient's daughter, and spoke with the daughter by telephone. The daughter typically provides backup coverage, however she will be out of the area this weekend as well. The patient will likely need PT/OT evaluation before going home. Due to the timing of her injury and time of day we are not able to facilitate that through the ER tonight. I did reach out to the [facility] team who agreed to evaluate the patient here in the ER. Please see their dictations for further patient course, plan, disposition. The chart was completed utilizing [employer] Speech Voice Recognition Software. Gram matical errors, random word insertions, pronoun errors, and incomplete sentences are an occasional consequence of this system due to software limitations, ambient noise, and hardware issues. Any formal questions or concerns about the content, text, or information contained within the body of this dictation should be directly addressed to the provider for clarification. . Impression & Plan Fall, Ambulatory dysfunction Discharge Plan Visit Data Chief Complaint: Fall Stated Complaint: Fall ED Provider: Vincent Xiong ED Midlevel Provider: Vasquez Dyson Discharge Problem: Fall, Ambulatory dysfunction Patient Disposition: Admitted As Inpatient Discharge Instructions Interventions: ED Discharge Assessment Last Done: 12/07/21 20:57
[2021-12-07 16:09] LABS: Basophils # (auto) 0.03 K/uL (0-0.2); Basophils % (auto) 0.5 %; Eosinophils % (auto) 4.6 %; Hematocrit (blood only) 36.7 % (37-47); Hemoglobin 11.9 g/dL (12.0-16.0); Immature Granulocytes # (auto) 0.02 K/uL (0.00-0.02); Immature Granulocytes % (auto) 0.3 %; Lymphocytes # (auto) 1.81 K/uL (1.2-3.4); Lymphocytes % (auto) 27.9 %; Mean Corpuscular Hemoglobin 24.6 pg (25-34); Mean Corpuscular Hgb Conc 32.4 g/dL (32-36); Mean Corpuscular Volume 75.8 fL (80-100); Mean Platelet Volume 9.9 fL (7.4-10.4); Monocytes # (auto) 0.71 K/uL (0.11-0.59); Monocytes % (auto) 10.9 %; Neutrophils # (auto) 3.62 K/uL (1.4-6.5); Neutrophils % (auto) 55.8 %; Platelet Count 156 K/uL (130-400); RDW Coefficient of Variation 17.1 % (11.5-14.5); RDW Standard Deviation 47.2 fL (36.4-46.3); Red Blood Count 4.84 M/uL (4.2-5.4); White Blood Count 6.49 K/uL (4.8-10.8)
--- NOTE | 2021-12-07 16:10 | XRay Report ---
XR foot LT 2V, XR ankle LT 2V HISTORY: 71 years-old Female Fall. Pain/brusing acute pain and swelling of the left foot and ankle s tatus post fall COMPARISON: None TECHNIQUE: 3 views of the left foot with 3 views of the left ankle FINDINGS: FOOT: Demineralized appearance of the bones with mild to moderate multifocal osteoarthritis. Chronic appear ing deformity of the fifth PIP joint. Moderate soft tissue swelling is most pronounced within the zack adriano forefoot. No acute fracture, dislocation or opaque foreign body. ANKLE: Mild to moderate osteoarthritis of the tibiotalar joint with degenerative spurring of the calcaneus. No acute fracture, dislocation or osteochondral defect. Arterial calcifications. Degenerative spurrin g of the calcaneus. IMPRESSION: Soft tissue swelling without acute fracture or dislocation. ACT 112: Negative or not required by law. The above report was generated using voice recognition software. It may contain grammatical, syntax o r spelling errors. Electronically signed by: Tommie Loredo M.D. 12/07/2021 4:08 PM
--- NOTE | 2021-12-07 16:35 | CT Scan Report ---
CT SCAN OF THE BRAIN WITHOUT IV CONTRAST CLINICAL HISTORY: Fall. COMPARISON STUDY: CT of the brain dated 12/03/2021. TECHNIQUE: Unenhanced axial CT scan of the brain is performed from the vertex to the skull base. A do se lowering technique was utilized adhering to the principles of ALARA. CT DOSE: 720.95 mGycm FINDINGS: Brain parenchyma: There is age-related involutional change noting mild subcortical and periventricula r microangiopathic disease. There is no hemorrhage, mass effect, or evidence of acute territorial isc hemia by CT criteria. A chronic lacunar infarct is noted in the right thalamus. Garcia-white matter dif ferentiation is preserved. No extra-axial fluid collection is seen. Ventricles, sulci, cisterns: Prominent secondary to involutional change. Intracranial vasculature: There is atherosclerotic calcification of the cavernous carotid and vertebr al arteries. Calvarium: The skeletal structures are osteopenic. No depressed calvarial fracture is identified. Sinuses and mastoids: The visualized paranasal sinuses are clear. The mastoid air cells are well pneu matized. Orbits: The bony orbits are grossly intact. There are bilateral ocular lens implants. IMPRESSION: There is no hemorrhage, mass effect, or evidence of acute territorial ischemia by CT cande raymundo. ACT 112: Negative or not required by law. Electronically signed by: Berto Snow M.D. 12/07/2021 4:33 PM
[2021-12-07 16:37] LABS: Alanine Aminotransferase 20 U/L (7-52); Albumin Globulin Ratio 1.2 (0.9-2); Albumin Level 3.9 gm/dl (3.4-5.0); Alkaline Phosphatase 141 U/L (34-104); Anion Gap 9 (3-11); Aspartate Aminotransferase 31 U/L (13-39); BUN Creatinine Ratio 9.9 (10-20); Bilirubin,Total 1.1 mg/dl (0.2-1.0); Blood Urea Nitrogen 10 mg/dl (6-23); Calcium 9.3 mg/dl (8.5-10.1); Carbon Dioxide 26 mmol/L (21-32); Chloride 99 mmol/L (98-107); Est GFR (African American) 64.4 ml/min; Est GFR (Non-African American) 55.6 ml/min; Globulin 3.2 gm/dl (2.5-4.0); Glucose 117 mg/dl (70-99(Fasting)); Potassium 3.6 mmol/L (3.5-5.1); Sodium 134 mmol/L (136-145); Total Protein 7.1 gm/dl (6.0-8.3)
[2021-12-07 16:39] LABS: Troponin I High Sensitivity 8.6 pg/ml (0-14)
--- NOTE | 2021-12-07 16:40 | CT Scan Report ---
CT SCAN OF THE CERVICAL SPINE CLINICAL HISTORY: Fall. Head injury. COMPARISON STUDY: CT of the cervical spine dated 12/03/2021 and 01/07/2021. TECHNIQUE: CT scan of the cervical spine is performed from the skull base to the upper thoracic spine . Images are reviewed in the axial, sagittal, and coronal planes. IV contrast was not administered fo r this examination. A dose lowering technique was utilized adhering to the principles of ALARA. CT DOSE: 782.54 mGycm FINDINGS: Skeletal structures: The skeletal structures are osteopenic. There is no evidence of acute fracture o r subluxation involving the cervical spine. There is a chronic nonunited fracture versus developmenta l cortical defect within the left pedicle of C6. This is unchanged as compared to prior studies. Vert ebral body height and alignment are maintained. A large hemangioma seen in the body of C7. There is a mild chronic compression deformity of T1. There is straightening of cervical lordosis. Small anterio r osteophytes are seen throughout. The odontoid process and lateral masses are intact. The atlantoaxi al articulation is preserved noting mild productive degenerative change. The spinous processes appear intact. There is mild multilevel cervical spondylosis. Facet arthropathy is noted at several levels. Intervertebral discs: There is moderate disc space narrowing at C4-C5 and C6-C7. Mild disc space narr owing is seen at the remaining cervical levels. Central canal: Posterior disc osteophyte complexes at C6-C7 and C7-T1 may contribute to acquired comp romise of the central canal. Soft tissues: The prevertebral and paraspinous soft tissues are within normal limits. There is athero sclerotic calcification of the carotid bulbs. Calvarium: The visualized calvarium at the skull base appears intact. Brain parenchyma: Partially visualized brain parenchyma at the skull base is within normal limits. Sinuses and mastoids: The visualized paranasal sinuses are clear. The mastoid air cells are well pneu matized. Lung apices: Clear as visualized. IMPRESSION: 1. There is no evidence of fracture or subluxation involving the cervical spine. 2. Osteopenia with chronic and spondylotic change as as above. ACT 112: Negative or not required by law. Electronically signed by: Berto Snow M.D. 12/07/2021 4:38 PM
--- NOTE | 2021-12-07 18:27 | History & Physical Report ---
Date of Service December 07, 2021 Assessment & Plan (1) Ambulatory dysfunction: (2) Recurrent falls: Plan: Patient is 71 y/o F with PMH DM II, cirrhosis, hepatic encephalopathy, HTN, chronic diastolic CHF, CAD s/p stent, moderate aortic stenosis, h/o UTI, Fdepjmp-yihom-rbhiv, thrombocytopenia, bipolar disorder presented to ER with c/o recurrent falls. Most recent fall today. Looses balance and falls. Has walker. Normal home caregiver unavailable currently. In ER CT HEAD: No acute intracranial abnormality. CT C-spine: No acute fracture Left foot x-ray: No acute fracture, soft tissue swelling Fall precautions PT/OT eval May need to consider adjustment of chronic narcotic, benzo meds HISTORY RECURRENT UTI no current UTI symptoms Continue methenamine INSULIN-DEPENDENT DM TYPE 2: A1c: 8.3 on 11/01/2021 Hold Trulicity Basal bolus insulin per protocol CHRONIC DIASTOLIC CHF: Appears euvolemic continue torsemide, spironolactone HYPERTENSION: continue metoprolol succinate CIRRHOSIS OF LIVER Euvolemic, no hepatic encephalopathy Continue torsemide, spironolactone, lactulose, Xifaxan HYPOTHYROIDISM: Continue levothyroxine BIPOLAR DISORDER Continue home meds CHRONIC PAIN SYNDROME: Continue morphine ER and as needed oxycodone, continue gabapentin DVT Prophylaxis Lovenox SQ Full Code as per discussion with pt Follows with Dr Domínguez for routine care Pt was seen and care coordinated with Dr Smith. See addendum History of Present Illness Chief Complaint: Fall Primary Care Provider: Brian Domínguez MD Patient is 71 y/o F with PMH DM II, cirrhosis, hepatic encephalopathy, HTN, chronic diastolic CHF, CAD s/p stent, moderate aortic stenosis, h/o UTI, Qhquhss-kktny-opmfa, thrombocytopenia, bipolar disorder presented to ER with c/o recurrent falls. She reports got up to go to bathroom and started to fall and grabbed walker however walker tipped over and she fell to ground and reports h itting her head. Denies LOC, syncope. Reports had some foot discomfort, otherwise denies other injury. Patient also reports 2 other falls past 1.5 weeks also and reports she looses her balance and falls. Denies any dizziness, CP, SOB prior to falls. Usually has caregiver for 16-20 hours a day and daughter to help fill in the remaining hours however her caregiver is out of town and daughter is unavailable currently secondary to other family medical emergency. Denies fever/chills, diaphoresis, N/V/D/C, NELSON, dizziness, syncope, vision changes, neck pain, CP, SOB, orthopnea, palpitations, cough, sore throat, choking, otalgia, rhinorrhea, abdominal pain, paresthesias, extremity edema, rashes, urinary symptoms. Allergies Allergy/AdvReac Type Severity Reaction Status Date / Time propoxyphene Allergy Mild Rash Verified 10/10/21 13:26 fentanyl AdvReac Intermediate PANIC Verified 10/10/21 13:26 WANTS TO RUN AND AGGRESSIVE zolpidem AdvReac Intermediate confusion Verified 10/10/21 13:26 methocarbamol AdvReac Mild DELERIUM Verified 10/10/21 13:26 Home Medications Medication Instructions Recorded Confirmed Type albuterol sulfate 90 mcg/actuation 2 puff INHALATION QID PRN 04/27/18 12/07/21 History aerosol inhaler (Ventolin HFA) aripiprazole 2 mg tablet 2 mg PO HS 04/27/18 12/07/21 History levothyroxine 88 mcg tablet 88 mcg PO QAM 04/27/18 12/07/21 History nitroglycerin 0.4 mg sublingual 0.4 mg SUBLINGUAL DIRECTED PRN 04/27/18 12/07/21 History tablet (Nitrostat) montelukast 10 mg tablet 10 mg PO DAILY@1600 06/11/19 12/07/21 History spironolactone 50 mg tablet 50 mg PO BID 09/15/19 12/07/21 History (Aldactone) venlafaxine 75 mg capsule,extended 75 mg PO QAM 09/15/19 12/07/21 History release 24 hr insulin glargine 100 unit/mL (3 60 unit SUBCUT QAM 12/22/19 12/07/21 History mL) subcutaneous pen (Basaglar KwikPen U-100 Insulin) morphine 15 mg tablet,extended 15 mg PO AMHS 01/16/20 12/07/21 History release metoprolol succinate 50 mg 50 mg PO BID 03/21/20 12/07/21 History tablet,extended release 24 hr rifaximin 550 mg tablet (Xifaxan) 550 mg PO BID 03/21/20 12/07/21 History isosorbide mononitrate 30 mg 30 mg PO QAM 01/07/21 12/07/21 History tablet,extended release 24 hr venlafaxine 150 mg 150 mg PO QAM 01/07/21 12/07/21 History capsule,extended release 24 hr aspirin 81 mg tablet,delayed 81 mg PO DAILY 01/26/21 12/07/21 History release fluticasone propionate 50 2 spray INTRANASAL DAILY 01/26/21 12/07/21 History mcg/actuation nasal spray,suspension lactulose 10 gram/15 mL oral 45 g PO BID 01/26/21 12/07/21 History solution oxycodone 5 mg tablet 5 mg PO Q8 PRN 01/26/21 12/07/21 History pantoprazole 40 mg tablet,delayed 40 mg PO DAILYBB 01/26/21 12/07/21 History release gabapentin 300 mg capsule 300 mg PO BID 02/26/21 12/07/21 History clonazepam 0.5 mg tablet 0.5 mg PO TID 03/23/21 12/07/21 History atorvastatin 40 mg tablet 40 mg PO QAM 10/10/21 12/07/21 History dicyclomine 10 mg capsule 10 mg PO QID PRN 10/10/21 12/07/21 History ergocalciferol (vitamin D2) 1,250 1,250 mcg PO WK 10/10/21 12/07/21 History mcg (50,000 unit) capsule estradiol 1 applic VAGINAL HS 10/10/21 12/07/21 History ondansetron HCl 8 mg tablet 8 mg PO Q8 PRN 10/10/21 12/07/21 History oxybutynin chloride 10 mg 10 mg PO QAM 10/10/21 12/07/21 History tablet,extended release 24 hr tamsulosin 0.4 mg capsule 0.4 mg PO QAM 10/10/21 12/07/21 History torsemide 20 mg tablet 20 - 40 mg PO QAM 10/10/21 12/07/21 History lamotrigine 100 mg tablet 100 mg PO DAILY 11/23/21 12/07/21 History lamotrigine 25 mg tablet 25 mg PO DAILY 11/23/21 12/07/21 History lamotrigine 25 mg tablet 50 mg PO HS 11/23/21 12/07/21 History methenamine hippurate 1 gram 1 g PO BID 11/23/21 12/07/21 History tablet (Hiprex) ascorbic acid (vitamin C) 500 mg 500 mg PO BID 12/07/21 12/07/21 History tablet dulaglutide 4.5 mg/0.5 mL 1.4 mg SUBCUT WK 12/07/21 12/07/21 History subcutaneous pen injector (Trulicity) Past Med/Surg History Medical History (Updated 12/07/21 @ 21:16 by Alise Waite PA-C) Anxiety Bipolar disorder CAD (coronary artery disease) History of multiple PCI's to the RCA with subsequent CABG x1 in 2010 x 1 vessel Most recent cardiac testing-negative DSE in December 2017 Follows w/ Dr. Blackwell and Dr. Lucas Eiypusc-Svnsp-Vaevr disease follows w/ Dr. Lemus Chronic diastolic CHF (congestive heart failure) Chronic pain syndrome Depression DM type 2 (diabetes mellitus, type 2) IDDM Dyslipidemia Encephalopathy d/c from [facility] 09/20/19 (hepatic encephalopathy) Gastroparesis GERD (gastroesophageal reflux disease) Hypertension Hypothyroidism Irregular heart beat follows Dr. 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 Moderate aortic stenosis GONZALEZ (nonalcoholic steatohepatitis) Osteoarthritis Portal hypertensive gastropathy Spondylosis Urinary incontinence UTI (urinary tract infection) REASON FOR CIPRO Surgical History History of appendectomy History of back surgery sacral area History of cardiac cath multiple - most recent - 2 years ago @ [facility] History of cataract surgery RT History of colonoscopy History of esophagogastroduodenoscopy (EGD) History of heart artery stent 2 yrs ago @ [facility] > unsure of how many stents > follows Dr. Lucas History of total right knee replacement Hx of cholecystectomy S/P CABG x 1 2010 - single vessel S/P CARLOS (total abdominal hysterectomy) Family History Father Coronary heart disease Brother Coronary heart disease Father Diabetes Mother Diabetes Social History Smoking Status: Never smoker Second Hand Exposure: Yes (DAUGHTER SMOKES); Hx Alcohol Use: Yes Alcohol type: beer and wine Hx Substance Use: No Preferred Language: Irish Communication Ability: Effective Enterprise Application Analyst Required: No Beliefs That Will Affect Care: None marital status: / Current Living Situation: Alone How many Children do You have: 0 Feels Safe at Home: Yes Assistive Devices: Walker and Wheelchair Review of Systems Review of Systems: All systems reviewed & are unremarkable except as noted in HPI & below Physical Exam Physical Exam: Per Dr Smith Results & Data Results & Data ([facility]) Vital Signs (Past 12 Hours) Vital Signs Temp Pulse Pulse Resp BP BP Pulse Ox 12/07/21 18:00 68 20 136/78 98 12/07/21 16:40 88 20 132/78 97 12/07/21 15:05 36.8 C 76 20 144/76 H 98 Laboratory Results Short CBC 12/07/21 Range/Units 15:50 WBC 6.49 (4.8-10.8) K/uL Hgb 11.9 L (12.0-16.0) g/dL Hct 36.7 L (37-47) % Plt Count 156 (130-400) K/uL BMP 12/07/21 15:50 Sodium 134 L Potassium 3.6 Chloride 99 Carbon Dioxide 26 BUN 10 Creatinine 1.01 Glucose 117 H Calcium 9.3 Liver Function 12/07/21 Range/Units 15:50 Total Bilirubin 1.1 H (0.2-1.0) mg/dl AST 31 (13-39) U/L ALT 20 (7-52) U/L Alkaline Phosphatase 141 H (34-104) U/L Albumin 3.9 (3.4-5.0) gm/dl Diagnostic Findings Ankle X-Ray 12/07/21 15:29 XR foot LT 2V, XR ankle LT 2V HISTORY: 71 years-old Female Fall. Pain/brusing acute pain and swelling of the left foot and ankle status post fall COMPARISON: None TECHNIQUE: 3 views of the left foot with 3 views of the left ankle FINDINGS: FOOT: Demineralized appearance of the bones with mild to moderate multifocal osteoarthritis. Chronic appearing deformity of the fifth PIP joint. Moderate soft tissue swelling is most pronounced within the dorsal forefoot. No acute fracture, dislocation or opaque foreign body. ANKLE: Mild to moderate osteoarthritis of the tibiotalar joint with degenerative spurring of the calcaneus. No acute fracture, dislocation or osteochondral defect. Arterial calcifications. Degenerative spurring of the calcaneus. IMPRESSION: Soft tissue swelling without acute fracture or dislocation. ACT 112: Negative or not required by law. The above report was generated using voice recognition software. It may contain grammatical, syntax or spelling errors. Electronically signed by: Tommie oLredo M.D. 12/07/2021 4:[address] 12/07/21 15:29 CT SCAN OF THE CERVICAL SPINE CLINICAL HISTORY: Fall. Head injury. COMPARISON STUDY: CT of the cervical spine dated 12/03/2021 and 01/07/2021. TECHNIQUE: CT scan of the cervical spine is performed from the skull base to the upper thoracic spine. Images are reviewed in the axial, sagittal, and coronal planes. IV contrast was not administered for this examination. A dose lowering technique was utilized adhering to the principles of ALARA. CT DOSE: 782.54 mGycm FINDINGS: Skeletal structures: The skeletal structures are osteopenic. There is no evidence of acute fracture or subluxation involving the cervical spine. There is a chronic nonunited fracture versus developmental cortical defect within the left pedicle of C6. This is unchanged as compared to prior studies. Vertebral body height and alignment are maintained. A large hemangioma seen in the body of C7. There is a mild chronic compression deformity of T1. There is straightening of cervical lordosis. Small anterior osteophytes are seen throughout. The odontoid process and lateral masses are intact. The atlantoaxial articulation is preserved noting mild productive degenerative change. The spinous processes appear intact. There is mild multilevel cervical spondylosis. Facet arthropathy is noted at several levels. Intervertebral discs: There is moderate disc space narrowing at C4-C5 and C6-C7. Mild disc space narrowing is seen at the remaining cervical levels. Central canal: Posterior disc osteophyte complexes at C6-C7 and C7-T1 may contribute to acquired compromise of the central canal. Soft tissues: The prevertebral and paraspinous soft tissues are within normal limits. There is atherosclerotic calcification of the carotid bulbs. Calvarium: The visualized calvarium at the skull base appears intact. Brain parenchyma: Partially visualized brain parenchyma at the skull base is within normal limits. Sinuses and mastoids: The visualized paranasal sinuses are clear. The mastoid air cells are well pneumatized. Lung apices: Clear as visualized. IMPRESSION: 1. There is no evidence of fracture or subluxation involving the cervical spine. 2. Osteopenia with chronic and spondylotic change as as above. ACT 112: Negative or not required by law. Electronically signed by: Berto Snow M.D. 12/07/2021 4:38 PM Foot X-Ray 12/07/21 15:29 XR foot LT 2V, XR ankle LT 2V HISTORY: 71 years-old Female Fall. Pain/brusing acute pain and swelling of the left foot and ankle status post fall COMPARISON: None TECHNIQUE: 3 views of the left foot with 3 views of the left ankle FINDINGS: FOOT: Demineralized appearance of the bones with mild to moderate multifocal osteoarthritis. Chronic appearing deformity of the fifth PIP joint. Moderate soft tissue swelling is most pronounced within the dorsal forefoot. No acute fracture, dislocation or opaque foreign body. ANKLE: Mild to moderate osteoarthritis of the tibiotalar joint with degenerative spurring of the calcaneus. No acute fracture, dislocation or osteochondral defect. Arterial calcifications. Degenerative spurring of the calcaneus. IMPRESSION: Soft tissue swelling without acute fracture or dislocation. ACT 112: Negative or not required by law. The above report was generated using voice recognition software. It may contain grammatical, syntax or spelling errors. Electronically signed by: Tommie Loredo M.D. 12/07/2021 4:[address] 12/07/21 15:29 CT SCAN OF THE BRAIN WITHOUT IV CONTRAST CLINICAL HISTORY: Fall. COMPARISON STUDY: CT of the brain dated 12/03/2021. TECHNIQUE: Unenhanced axial CT scan of the brain is performed from the vertex to the skull base. A dose lowering technique was utilized adhering to the principles of ALARA. CT DOSE: 720.95 mGycm FINDINGS: Brain parenchyma: There is age-related involutional change noting mild subcortical and periventricular microangiopathic disease. There is no hemorrhage, mass effect, or evidence of acute territorial ischemia by CT criteria. A chronic lacunar infarct is noted in the right thalamus. Garcia-white matter differentiation is preserved. No extra-axial fluid collection is seen. Ventricles, sulci, cisterns: Prominent secondary to involutional change. Intracranial vasculature: There is atherosclerotic calcification of the cavernous carotid and vertebral arteries. Calvarium: The skeletal structures are osteopenic. No depressed calvarial fracture is identified. Sinuses and mastoids: The visualized paranasal sinuses are clear. The mastoid air cells are well pneumatized. Orbits: The bony orbits are grossly intact. There are bilateral ocular lens implants. IMPRESSION: There is no hemorrhage, mass effect, or evidence of acute territorial ischemia by CT criteria. ACT 112: Negative or not required by law. Electronically signed by: Berto Snow M.D. 12/07/2021 4:33 PM Supervising Physician Co-Signing Physician Notes Date of Service: December 07, 2021 History and physical exam performed by me. History notable for 71-year-old woman with history of diabetes, UTI, chronic back pain, Cirrhosis, hepatic encephalopathy, hypothyroidism, hypertension, chronic diastolic heart failure, CAD status post stents, aortic stenosis and other chronic medical problems who presents after a fall at home Reports about 2 falls since last admission. No dizziness, loss of consciousness, palpitations, chest pain Reports healthcare translator and daughter are at of town and concern for safety at home Physical exam, General: Well hydrated, obese, no acute distress and not ill appearing Eyes: PERRL, conjunctivae normal, not pale, anicteric sclerae, EOM intact bilaterally ENMT: External ear and nose normal, oropharynx normal Respiratory: Normal respiratory effort, no respiratory distress, lungs clear to auscultation, no crackles and no wheezes Cardiovascular:RRR S1 S2 +murmur Gastrointestinal (Abdomen): Abdomen is not distended, soft, non-tender to palpation, no guarding, no palpable hepatosplenomegaly, normal bowel sounds Musculoskeletal:No pedal edema Neurologic: PERRL, EOMI, No focal weakness, sensation grossly intact Psychiatric: Alert and oriented x 3, euthymic affect, no depressed affect Labs notable for hemoglobin of 11.9, sodium of 134, alkaline phosphatase of 141 CT/Xrays done as part of trauma eval did not show acute fracture Recurrent fall Get PT/OT evaluation Patient reports caregiver who provides 20hr per day care is out of town for the weekend. May need to be here till safe to return home. Consider SNF Continue home medications Agree with other plans as detailed by Alise Waite PA-C
--- NOTE | 2021-12-07 19:28 | Communication Note ---
Date of Service: December 07, 2021 History and physical exam performed by me. History notable for 71-year-old woman with history of diabetes, UTI, chronic back pain, Cirrhosis, hepatic encephalopathy, hypothyroidism, hypertension, chronic diastolic heart failure, CAD status post stents, aortic stenosis and other chronic medical problems who presents after a fall at home Reports about 2 falls since last admission. No dizziness, loss of consciousness, palpitations, chest pain Reports resident care provider and daughter are at of town and concern for safety at home Physical exam, General: Well hydrated, obese, no acute distress and not ill appearing Eyes: PERRL, conjunctivae normal, not pale, anicteric sclerae, EOM intact bilaterally ENMT: External ear and nose normal, oropharynx normal Respiratory: Normal respiratory effort, no respiratory distress, lungs clear to auscultation, no crackles and no wheezes Cardiovascular:RRR S1 S2 +murmur Gastrointestinal (Abdomen): Abdomen is not distended, soft, non-tender to palpation, no guarding, no palpable hepatosplenomegaly, normal bowel sounds Musculoskeletal:No pedal edema Neurologic: PERRL, EOMI, No focal weakness, sensation grossly intact Psychiatric: Alert and oriented x 3, euthymic affect, no depressed affect Labs notable for hemoglobin of 11.9, sodium of 134, alkaline phosphatase of 141 CT/Xrays done as part of trauma eval did not show acute fracture Recurrent fall Get PT/OT evaluation Patient reports caregiver who provides 20hr per day care is out of town for the weekend. May need to be here till safe to return home. Consider SNF Continue home medications Agree with other plans as detailed by Alise Waite PA-C
[2021-12-07] MEDS ORDERED: NITROGLYCERIN SL 0.4 MG/TAB TAB SL PRN (21:28)
[2021-12-07] MEDS ORDERED: DEXTROSE 50% 50 ML SYRINGE IV PRN (21:28)
[2021-12-07] MEDS ORDERED: CARBOHYDRATES FOR HYPOGLYCEMIA PO PRN (21:28)
[2021-12-07] MEDS ORDERED: GLUCOSE 10 TABS/TUBE PO PRN (21:28)
[2021-12-07] MEDS ORDERED: ONDANSETRON INJ 2 MG/ML 2 ML VIAL IV PRN (21:28)
[2021-12-07] MEDS ORDERED: POLYETHYLENE (MIRALAX) 17 GM PACK PO PRN (21:28)
[2021-12-07] MEDS ORDERED: GLUCAGON FOR INJ 1 MG VIAL SQ PRN (21:28)
[2021-12-07] MEDS ORDERED: GLUCOSE 40% GEL 15 GM TUBE PO PRN (21:28)
[2021-12-07] MEDS ORDERED: DICYCLOMINE HCL 10 MG CAP PO PRN (21:28)
[2021-12-07] MEDS ORDERED: oxyCODONE HCL IR 5 MG TAB (IMMEDIATE RELEASE) PO PRN (21:28)
[2021-12-07] MEDS: ACETAMINOPHEN 325 MG TAB PO PRN (22:12)
[2021-12-07] MEDS: ENOXAPARIN INJ 40 MG/0.4 ML SYR SQ SCH (23:07)
[2021-12-07] MEDS: LACTULOSE SYRUP 10 GM/15 ML BTL 960 ML PO SCH (23:08)
[2021-12-07] MEDS: ARIPIprazole 1 MG/ML ORAL SOLN 150 ML BTL PO SCH (23:08)
[2021-12-07] MEDS: ASCORBIC ACID 500 MG TAB PO SCH (23:08)
[2021-12-07] MEDS: GABAPENTIN 300 MG CAP PO SCH (23:08)
[2021-12-07] MEDS: lamoTRIgine 25 MG TAB PO SCH (23:08)
[2021-12-07] MEDS: rifAXIMin 550 MG TABLET PO SCH (23:09)
[2021-12-07] MEDS: METOPROLOL SUCC 50MG EXT REL TAB PO SCH (23:09)
[2021-12-07] MEDS: SPIRONOLACTONE 25 MG TAB PO SCH (23:09)
[2021-12-07] MEDS: METHENAMINE HIPPURATE 1 GM TAB PO SCH (23:10)
[2021-12-07] MEDS: MoRPHine SULFATE CR 15 MG TABCR PO SCH (23:12)
[2021-12-07] MEDS: clonazePAM 0.5 MG TAB PO SCH (23:13)
[2021-12-08] MEDS: LEVOTHYROXINE SODIUM 88 MCG TABLET PO SCH (05:57)
[2021-12-08] MEDS: PANTOprazole 40 MG TAB PO SCH (05:57)
[2021-12-08] MEDS: ESTRACE~ORDER AWAITING ACTION SCH ×2 (07:34→16:26)
[2021-12-08 07:45] LABS: Hematocrit (blood only) 34.6 % (37-47); Hemoglobin 10.9 g/dL (12.0-16.0); Mean Corpuscular Hemoglobin 23.7 pg (25-34); Mean Corpuscular Hgb Conc 31.5 g/dL (32-36); Mean Corpuscular Volume 75.4 fL (80-100); Mean Platelet Volume 9.9 fL (7.4-10.4); Platelet Count 155 K/uL (130-400); RDW Coefficient of Variation 17.2 % (11.5-14.5); RDW Standard Deviation 47.4 fL (36.4-46.3); Red Blood Count 4.59 M/uL (4.2-5.4); White Blood Count 5.56 K/uL (4.8-10.8)
[2021-12-08 08:18] LABS: Calcium 9.4 mg/dl (8.5-10.1); Potassium 3.6 mmol/L (3.5-5.1)
[2021-12-08 08:24] LABS: BUN Creatinine Ratio 10.1 (10-20); Creatinine Clr Calc Pharmacy 61.4 ml/min; Est GFR (African American) 58.7 ml/min; Est GFR (Non-African American) 50.7 ml/min
[2021-12-08] MEDS ORDERED: rifAXIMin 550 MG TABLET PO SCH (09:00)
[2021-12-08] MEDS ORDERED: MoRPHine SULFATE CR 15 MG TABCR PO SCH (09:00)
[2021-12-08] MEDS ORDERED: ISOSORBIDE MONO EXTENDED REL 30 MG TABCR PO SCH (09:00)
[2021-12-08] MEDS ORDERED: clonazePAM 0.5 MG TAB PO SCH (09:00)
[2021-12-08] MEDS ORDERED: INSULIN GLARGINE SOLOSTAR 100 UNITS/ML 3 ML PEN SC SCH (09:00)
[2021-12-08] MEDS ORDERED: SPIRONOLACTONE 25 MG TAB PO SCH (09:00)
[2021-12-08] MEDS ORDERED: ASCORBIC ACID 500 MG TAB PO SCH (09:00)
[2021-12-08] MEDS ORDERED: METOPROLOL SUCC 50MG EXT REL TAB PO SCH (09:00)
[2021-12-08] MEDS ORDERED: GABAPENTIN 300 MG CAP PO SCH (09:00)
[2021-12-08] MEDS: INSULIN GLARGINE SOLOSTAR 100 UNITS/ML 3 ML PEN SC SCH (09:11)
[2021-12-08] MEDS: FLUTICASONE PROPIONATE NA SPR 16 GM BTL NAE SCH (09:12)
[2021-12-08] MEDS: LACTULOSE SYRUP 10 GM/15 ML BTL 960 ML PO SCH ×2 (09:12→21:15)
[2021-12-08] MEDS: INSULIN ASPART PER UNIT SC SCH ×4 (09:18→21:14)
[2021-12-08] MEDS: SPIRONOLACTONE 25 MG TAB PO SCH ×2 (09:19→21:09)
[2021-12-08] MEDS: MoRPHine SULFATE CR 15 MG TABCR PO SCH ×2 (09:19→21:14)
[2021-12-08] MEDS: VENLAFAXINE HCL XR 150 MG CAPXR PO SCH (09:19)
[2021-12-08] MEDS: VENLAFAXINE HCL XR 75 MG CAPXR PO SCH (09:19)
[2021-12-08] MEDS: TORSEMIDE 20 MG TAB PO SCH (09:19)
[2021-12-08] MEDS: TAMSULOSIN HCL 0.4 MG CAP PO SCH (09:19)
[2021-12-08] MEDS: clonazePAM 0.5 MG TAB PO SCH ×3 (09:19→21:14)
[2021-12-08] MEDS: lamoTRIgine 100 MG TAB PO SCH (09:20)
[2021-12-08] MEDS: METOPROLOL SUCC 50MG EXT REL TAB PO SCH (09:20)
[2021-12-08] MEDS: OXYBUTYNIN CHLORIDE XL 5 MG TABCR PO SCH (09:20)
[2021-12-08] MEDS: METHENAMINE HIPPURATE 1 GM TAB PO SCH (09:20)
[2021-12-08] MEDS: lamoTRIgine 25 MG TAB PO SCH ×2 (09:20→21:06)
[2021-12-08] MEDS: rifAXIMin 550 MG TABLET PO SCH ×2 (09:20→21:09)
[2021-12-08] MEDS: GABAPENTIN 300 MG CAP PO SCH ×2 (09:21→21:09)
[2021-12-08] MEDS: ASPIRIN 81 MG ECTAB PO SCH (09:21)
[2021-12-08] MEDS: ASCORBIC ACID 500 MG TAB PO SCH ×2 (09:21→21:07)
[2021-12-08] MEDS: ATORVASTATIN 40 MG TAB PO SCH (09:21)
--- NOTE | 2021-12-08 13:25 | Hospitalist Progress Note ---
Date of Service December 08, 2021 Assessment & Plan (1) Ambulatory dysfunction: (2) Recurrent falls: Plan: Patient is 71 y/o F with PMH DM II, cirrhosis, hepatic encephalopathy, HTN, chronic diastolic CHF, CAD s/p stent, moderate aortic stenosis, h/o UTI, [id number], thrombocytopenia, bipolar disorder presented to ER with c/o recurrent falls. 1. Frequent falls -most likely multifactorial: polypharmacy, balance problems, not wearing foot brace -PT/OT eval ordered -will reduce her BP medications, continue BZD and pain medications as ordered 2. Chronic diastolic CHF -euvolemic -continue torsemide and spironolactone 3. HTN -reduce BB to toprol 50mg daily, d/c imdur -with her frequent falls, would favor higher BP 4. Cirrhosis -no decompensation -continue torsemide, spironolactone, lactulose and rifaximin 5. Hypothryoidism -synthoid 6. Bipolar disorder -continue home medications 7. chronic back pain -continue MS contin 15mg BID, oxycodone 5mg PRN DVT ppx -SQ lovenox Disposition -from home, PT evaluation for discharge planning Admission and Anticipated Discharge Date Admission Date: December 07, 2021 Subjective Patient report more frequent falls in past 1 month. She has left foot drop and has a brace but doesn't always wear it, she also reports decreased sensation in her feet. She reports sometimes feeling light headed but reports that her falls are not always associated with lightheadedness. We reviewed her pain medications. She takes both MS contin and PRN oxycodone. She reports her pain is most severe in the morning and the morphine helps the most. She does not use her oxycodone often. We reviewed her Klonopin and she reports that she has pretty severe anxiety and is reliant on her Klonopin We reviewed her antihypertensives and she reports "I"m not sure if I need all these medications". Her blood pressure today (prior to medications) were already borderline low (111/57) Physical Exam Physical Exam: No acute distress, non toxic, pleasant and comfortable Respiratory: Breathing comfortably on room air, no wheezing/rhonchi/rales Cardiovascular: regular rate and rhythm, no murmurs/rubs/gallops Gastrointestinal (Abdomen): soft, non tender, non distended Musculoskeletal: left foot swelling Neurologic: awake, alert, spontaneously moving extremities Results & Data Results & Data ([facility]) Vital Signs (Past 12 Hours) Vital Signs Temp Pulse Resp BP Pulse Ox 12/08/21 06:17 36.4 C L 66 20 111/57 L 97 Laboratory Results Short CBC 12/07/21 12/08/21 Range/Units 15:50 07:17 WBC 6.49 5.56 (4.8-10.8) K/uL Hgb 11.9 L 10.9 L (12.0-16.0) g/dL Hct 36.7 L 34.6 L (37-47) % Plt Count 156 155 (130-400) K/uL BMP 12/07/21 12/08/21 15:50 07:17 Sodium 134 L 138 Potassium 3.6 3.6 Chloride 99 101 Carbon Dioxide 26 31 BUN 10 11 Creatinine 1.01 1.09 Glucose 117 H 115 H Calcium 9.3 9.4 Liver Function 12/07/21 Range/Units 15:50 Total Bilirubin 1.1 H (0.2-1.0) mg/dl AST 31 (13-39) U/L ALT 20 (7-52) U/L Alkaline Phosphatase 141 H (34-104) U/L Albumin 3.9 (3.4-5.0) gm/dl Medications Administered Current Inpatient Medications Acetaminophen (Acetaminophen 325 Mg Tab) 650 mg PO Q4H PRN PRN Reason: Pain or Fever Stop: 01/06/22 21:27 Last Admin: 12/07/21 22:12 Dose: 650 mg Documented by: Albuterol (Albuterol Hfa 8 Gm Inhaler) 2 puffs INH QID PRN PRN Reason: Shortness Of Breath Or Wheezing Stop: 01/06/22 21:27 Aripiprazole (Aripiprazole 1 Mg/Ml Oral Soln 150 Ml Btl) 2 mg PO HS ANGELLA Stop: 01/06/22 22:14 Last Admin: 12/07/21 23:08 Dose: 2 mg Documented by: Ascorbic Acid (Ascorbic Acid 500 Mg Tab) 500 mg PO BID AN[facility] Stop: 01/06/22 22:14 Last Admin: 12/08/21 09:21 Dose: 500 mg Documented by: Aspirin (Aspirin 81 Mg Ectab) 81 mg PO DAILY [facility] Stop: 01/07/22 08:59 Last Admin: 12/08/21 09:21 Dose: 81 mg Documented by: Atorvastatin Calcium (Atorvastatin 40 Mg Tab) 40 mg PO QAM [facility] Stop: 01/07/22 08:59 Last Admin: 12/08/21 09:21 Dose: 40 mg Documented by: Clonazepam (Clonazepam 0.5 Mg Tab) 0.5 mg PO TID ANGELLA Stop: 01/06/22 22:14 Last Admin: 12/08/21 09:19 Dose: 0.5 mg Documented by: Dextrose (Dextrose 50% 50 Ml Syringe) 25 - 50 ml IV UD PRN; Protocol PRN Reason: Hypoglycemia Protocol Stop: 01/06/22 21:27 Dicyclomine HCl (Dicyclomine Hcl 10 Mg Cap) 10 mg PO QID PRN PRN Reason: Abdominal Pain Stop: 01/06/22 21:27 Enoxaparin Sodium (Enoxaparin Inj 40 Mg/0.4 Ml Syr) 40 mg SQ HS [facility] Stop: 01/06/22 21:27 Last Admin: 12/07/21 23:07 Dose: 40 mg Documented by: Fluticasone Propionate (Fluticasone Propionate Na Spr 16 Gm Btl) 2 sprays MADHURI DAILY [facility] Stop: 01/07/22 08:59 Last Admin: 12/08/21 09:12 Dose: 2 sprays Documented by: Gabapentin (Gabapentin 300 Mg Cap) 300 mg PO BID [facility] Stop: 01/06/22 22:14 Last Admin: 12/08/21 09:21 Dose: 300 mg Documented by: Glucagon (Glucagon For Inj 1 Mg Vial) 1 mg SQ UD PRN; Protocol PRN Reason: Hypoglycemia Protocol Stop: 01/06/22 21:27 Glucose (Glucose 10 Tabs/Tube) 4 - 8 tabs PO UD PRN; Protocol PRN Reason: Hypoglycemia Protocol Stop: 01/06/22 21:27 Glucose (Glucose 40% Gel 15 Gm Tube) 15 - 30 gm PO UD PRN; Protocol PRN Reason: Hypoglycemia Protocol Stop: 01/06/22 21:27 Insulin Aspart (Insulin Aspart Per Unit) 0 units SC ACHS [facility] Stop: 01/07/22 07:29 Last Admin: 12/08/21 09:18 Dose: 13 units Documented by: Insulin Glargine (Insulin Glargine Solostar 100 Units/Ml 3 Ml Pen) 0 units SC DAILY [facility] Stop: 01/07/22 08:59 Last Admin: 12/08/21 09:11 Dose: 40 units Documented by: Lactulose (Lactulose Syrup 10 Gm/15 Ml Btl 960 Ml) 45 gm PO BID [facility] Stop: 01/06/22 21:27 Last Admin: 12/08/21 09:12 Dose: 45 gm Documented by: Lamotrigine (Lamotrigine 25 Mg Tab) 25 mg PO DAILY [facility] Stop: 01/07/22 08:59 Last Admin: 12/08/21 09:20 Dose: 25 mg Documented by: Lamotrigine (Lamotrigine 100 Mg Tab) 100 mg PO DAILY [facility] Stop: 01/07/22 08:59 Last Admin: 12/08/21 09:20 Dose: 100 mg Documented by: Lamotrigine (Lamotrigine 25 Mg Tab) 50 mg PO HS [facility] Stop: 01/06/22 22:14 Last Admin: 12/07/21 23:08 Dose: 50 mg Documented by: Levothyroxine Sodium (Levothyroxine Sodium 88 Mcg Tablet) 88 mcg PO DAILYBB [facility] Stop: 01/07/22 06:29 Last Admin: 12/08/21 05:57 Dose: 88 mcg Documented by: Methenamine Hippurate (Methenamine Hippurate 1 Gm Tab) 1 gm PO BID [facility] Stop: 01/06/22 21:27 Last Admin: 12/08/21 09:20 Dose: 1 gm Documented by: Metoprolol Succinate (Metoprolol Succ 50mg Ext Rel Tab) 50 mg PO DAILY [facility] Stop: 01/08/22 08:59 Miscellaneous (Carbohydrates For Hypoglycemia ) 15 - 30 gm PO UD PRN PRN Reason: Hypoglycemia Protocol Stop: 01/06/22 21:27 Miscellaneous (Estrace~Order Awaiting Action) 1 ea N/A QS [facility] Stop: 01/07/22 07:59 Last Admin: 12/08/21 07:34 Dose: Not Given Documented by: Montelukast Sodium (Montelukast Sodium 10 Mg Tablet) 10 mg PO DAILY@1600 [facility] Stop: 01/07/22 15:59 Morphine Sulfate (Morphine Sulfate Cr 15 Mg Tabcr) 15 mg PO AMHS [facility] Stop: 12/21/21 22:14 Last Admin: 12/08/21 09:19 Dose: 15 mg Documented by: Nitroglycerin (Nitroglycerin Sl 0.4 Mg/Tab Tab) 0.4 mg SL UD PRN PRN Reason: Chest Pain Stop: 01/06/22 21:27 Ondansetron HCl (Ondansetron Inj 2 Mg/Ml 2 Ml Vial) 4 mg IV Q6H PRN PRN Reason: Nausea Stop: 01/06/22 21:27 Oxybutynin Chloride (Oxybutynin Chloride Xl 5 Mg Tabcr) 10 mg PO QAM [facility] Stop: 01/07/22 08:59 Last Admin: 12/08/21 09:20 Dose: 10 mg Documented by: Oxycodone HCl (Oxycodone Hcl Ir 5 Mg Tab (Immediate Release)) 5 mg PO Q8 PRN PRN Reason: Outbreak Stop: 12/21/21 21:27 Pantoprazole Sodium (Pantoprazole 40 Mg Tab) 40 mg PO DAILYBB [facility] Stop: 01/07/22 06:29 Last Admin: 12/08/21 05:57 Dose: 40 mg Documented by: Polyethylene Glycol (Polyethylene (Miralax) 17 Gm Pack) 17 gm PO DAILY PRN PRN Reason: Constipation Stop: 01/06/22 21:27 Rifaximin (Rifaximin 550 Mg Tablet) 550 mg PO BID [facility] Stop: 01/06/22 22:14 Last Admin: 12/08/21 09:20 Dose: 550 mg Documented by: Spironolactone (Spironolactone 25 Mg Tab) 50 mg PO BID [facility] Stop: 01/06/22 22:14 Last Admin: 12/08/21 09:19 Dose: 50 mg Documented by: Tamsulosin HCl (Tamsulosin Hcl 0.4 Mg Cap) [facility] Stop: 01/07/22 08:59 Last Admin: 12/08/21 09:19 Dose: 0.4 mg Documented by: Torsemide (Torsemide 20 Mg Tab) 20 mg PO QAM [facility] Stop: 01/07/22 08:59 Last Admin: 12/08/21 09:19 Dose: 20 mg Documented by: Venlafaxine HCl (Venlafaxine Hcl Xr 75 Mg Capxr) 75 [facility] Stop: 01/07/22 08:59 Last Admin: 12/08/21 09:19 Dose: 75 mg Documented by: Venlafaxine HCl (Venlafaxine Hcl Xr 150 Mg Capxr) 150 mg PO QAM [facility] Stop: 01/07/22 08:59 Last Admin: 12/08/21 09:19 Dose: 150 mg Documented by:
[2021-12-08] MEDS: ACETAMINOPHEN 325 MG TAB PO PRN (14:46)
[2021-12-08] MEDS: MONTELUKAST SODIUM 10 MG TABLET PO SCH (18:04)
[2021-12-08] MEDS ORDERED: ARIPIprazole 1 MG/ML ORAL SOLN 150 ML BTL PO SCH (21:00)
[2021-12-08] MEDS ORDERED: lamoTRIgine 25 MG TAB PO SCH (21:00)
[2021-12-08] MEDS: ARIPIprazole 1 MG/ML ORAL SOLN 150 ML BTL PO SCH (21:14)
[2021-12-08] MEDS: ENOXAPARIN INJ 40 MG/0.4 ML SYR SQ SCH (21:14)
[2021-12-09] MEDS: METHENAMINE HIPPURATE 1 GM TAB PO SCH ×3 (00:26→20:54)
[2021-12-09] MEDS: ESTRACE~ORDER AWAITING ACTION SCH ×4 (01:55→22:49)
[2021-12-09] MEDS: PANTOprazole 40 MG TAB PO SCH (06:10)
[2021-12-09] MEDS: LEVOTHYROXINE SODIUM 88 MCG TABLET PO SCH (06:10)
--- NOTE | 2021-12-09 08:09 | Electrocardiogram Report ---
Test Reason : Blood Pressure : / mmHG Vent. Rate : 068 BPM Atrial Rate : 068 BPM P-R Int : 170 ms QRS Dur : 098 ms QT Int : 400 ms P-R-T Axes : 006 -33 075 degrees QTc Int : 425 ms Normal sinus rhythm Left axis deviation Abnormal ECG When compared with ECG of 03-DEC-2021 08:12, No significant change was found Confirmed by Eron Angeles ([id number]) on 12/09/2021 8:08:43 AM Referred By: REFERRED SELF Confirmed By:Eron Angeles
[2021-12-09] MEDS: INSULIN GLARGINE SOLOSTAR 100 UNITS/ML 3 ML PEN SC SCH (09:13)
[2021-12-09] MEDS: INSULIN ASPART PER UNIT SC SCH ×4 (09:13→21:06)
[2021-12-09] MEDS: VENLAFAXINE HCL XR 75 MG CAPXR PO SCH (09:21)
[2021-12-09] MEDS: OXYBUTYNIN CHLORIDE XL 5 MG TABCR PO SCH (09:21)
[2021-12-09] MEDS: rifAXIMin 550 MG TABLET PO SCH ×2 (09:21→20:51)
[2021-12-09] MEDS: TORSEMIDE 20 MG TAB PO SCH (09:21)
[2021-12-09] MEDS: TAMSULOSIN HCL 0.4 MG CAP PO SCH (09:21)
[2021-12-09] MEDS: VENLAFAXINE HCL XR 150 MG CAPXR PO SCH (09:21)
[2021-12-09] MEDS: SPIRONOLACTONE 25 MG TAB PO SCH ×2 (09:21→20:50)
[2021-12-09] MEDS: clonazePAM 0.5 MG TAB PO SCH ×3 (09:24→20:49)
[2021-12-09] MEDS: MoRPHine SULFATE CR 15 MG TABCR PO SCH ×2 (09:24→20:51)
[2021-12-09] MEDS: FLUTICASONE PROPIONATE NA SPR 16 GM BTL NAE SCH (09:25)
[2021-12-09] MEDS: LACTULOSE SYRUP 10 GM/15 ML BTL 960 ML PO SCH ×3 (09:25→20:51)
[2021-12-09] MEDS: GABAPENTIN 300 MG CAP PO SCH ×2 (09:25→20:49)
[2021-12-09] MEDS: METOPROLOL SUCC 50MG EXT REL TAB PO SCH (09:25)
[2021-12-09] MEDS: lamoTRIgine 25 MG TAB PO SCH ×2 (09:25→20:49)
[2021-12-09] MEDS: lamoTRIgine 100 MG TAB PO SCH (09:25)
[2021-12-09] MEDS: ASCORBIC ACID 500 MG TAB PO SCH ×2 (09:26→20:50)
[2021-12-09] MEDS: ASPIRIN 81 MG ECTAB PO SCH (09:26)
[2021-12-09] MEDS: ATORVASTATIN 40 MG TAB PO SCH (09:26)
[2021-12-09] MEDS: ALBUTEROL HFA 8 GM INHALER INH PRN (13:04)
--- NOTE | 2021-12-09 17:06 | Hospitalist Progress Note ---
Date of Service December 09, 2021 Assessment & Plan (1) Ambulatory dysfunction: (2) Recurrent falls: Plan: Patient is 71 y/o F with PMH DM II, cirrhosis, hepatic encephalopathy, HTN, chronic diastolic CHF, CAD s/p stent, moderate aortic stenosis, h/o UTI, [id number], thrombocytopenia, bipolar disorder presented to ER with c/o recurrent falls. 1. Frequent falls -most likely multifactorial: polypharmacy, balance problems, not wearing foot brace -PT/OT eval ordered, Rehab recommended but patient and daughter wants her home. Family in process of having increased home care services -orthostatic VS negative, BP remains stable on lower doses of medications 2. Chronic diastolic CHF -euvolemic -continue torsemide and spironolactone 3. HTN -BP remains stable on lower doses of medications 4. Cirrhosis -no decompensation -continue torsemide, spironolactone, lactulose and rifaximin 5. Hypothryoidism -synthoid 6. Bipolar disorder -continue home medications 7. chronic back pain -continue MS contin 15mg BID, oxycodone 5mg PRN DVT ppx -SQ lovenox Disposition -from home, plan to return home with increased home care services, patient also needs a bariatric bedside commode Admission and Anticipated Discharge Date Admission Date: December 07, 2021 Subjective Worked with PT/OT today, rehab recommended but patient wants to return home I spoke with Carolyn, her daughter, and she is in the process of getting increased home care services for mom and also wants to bring mom home Physical Exam Physical Exam: Pleasant, comfortable, no acute distress Respiratory: breathing comfortably on room air, no wheezing/rhonchi/rales Cardiovascular: regular rate and rhythm, no murmurs/rubs/gallops Gastrointestinal (Abdomen): soft, non tender, non distended Musculoskeletal: bilateral charcot jeanine foot, no lower extremity swelling Neurologic: awake, alert, spontaneously moving extremities, chronic foot drop Results & Data Results & Data ([facility]) Vital Signs (Past 12 Hours) Vital Signs Temp Pulse Resp BP Pulse Ox 12/09/21 15:17 36.5 C 68 22 110/54 L 99 12/09/21 13:06 64 18 95 12/09/21 07:40 36.5 C 64 20 110/70 94 Medications Administered Current Inpatient Medications Acetaminophen (Acetaminophen 325 Mg Tab) 650 mg PO Q4H PRN PRN Reason: Pain or Fever Stop: 01/06/22 21:27 Last Admin: 12/08/21 14:46 Dose: 650 mg Documented by: Albuterol (Albuterol Hfa 8 Gm Inhaler) 2 puffs INH QID PRN PRN Reason: Shortness Of Breath Or Wheezing Stop: 01/06/22 21:27 Last Admin: 12/09/21 13:04 Dose: 2 puffs Documented by: Aripiprazole (Aripiprazole 1 Mg/Ml Oral Soln 150 Ml Btl) 2 mg PO HS [facility] Stop: 01/06/22 22:14 Last Admin: 12/08/21 21:14 Dose: 2 mg Documented by: Ascorbic Acid (Ascorbic Acid 500 Mg Tab) 500 mg PO BID [facility] Stop: 01/06/22 22:14 Last Admin: 12/09/21 09:26 Dose: 500 mg Documented by: Aspirin (Aspirin 81 Mg Ectab) 81 mg PO DAILY [facility] Stop: 01/07/22 08:59 Last Admin: 12/09/21 09:26 Dose: 81 mg Documented by: Atorvastatin Calcium (Atorvastatin 40 Mg Tab) 40 mg PO QAM [facility] Stop: 01/07/22 08:59 Last Admin: 12/09/21 09:26 Dose: 40 mg Documented by: Clonazepam (Clonazepam 0.5 Mg Tab) 0.5 mg PO TID [facility] Stop: 01/06/22 22:14 Last Admin: 12/09/21 13:42 Dose: 0.5 mg Documented by: Dextrose (Dextrose 50% 50 Ml Syringe) 25 - 50 ml IV UD PRN; Protocol PRN Reason: Hypoglycemia Protocol Stop: 01/06/22 21:27 Dicyclomine HCl (Dicyclomine Hcl 10 Mg Cap) 10 mg PO QID PRN PRN Reason: Abdominal Pain Stop: 01/06/22 21:27 Enoxaparin Sodium (Enoxaparin Inj 40 Mg/0.4 Ml Syr) 40 mg SQ HS [facility] Stop: 01/06/22 21:27 Last Admin: 12/08/21 21:14 Dose: 40 mg Documented by: Fluticasone Propionate (Fluticasone Propionate Na Spr 16 Gm Btl) 2 sprays MADHURI DAILY [facility] Stop: 01/07/22 08:59 Last Admin: 12/09/21 09:25 Dose: 2 sprays Documented by: Gabapentin (Gabapentin 300 Mg Cap) 300 mg PO BID [facility] Stop: 01/06/22 22:14 Last Admin: 12/09/21 09:25 Dose: 300 mg Documented by: Glucagon (Glucagon For Inj 1 Mg Vial) 1 mg SQ UD PRN; Protocol PRN Reason: Hypoglycemia Protocol Stop: 01/06/22 21:27 Glucose (Glucose 10 Tabs/Tube) 4 - 8 tabs PO UD PRN; Protocol PRN Reason: Hypoglycemia Protocol Stop: 01/06/22 21:27 Glucose (Glucose 40% Gel 15 Gm Tube) 15 - 30 gm PO UD PRN; Protocol PRN Reason: Hypoglycemia Protocol Stop: 01/06/22 21:27 Insulin Aspart (Insulin Aspart Per Unit) 0 units SC ACHS [facility] Stop: 01/07/22 07:29 Last Admin: 12/09/21 13:30 Dose: 5 units Documented by: Insulin Glargine (Insulin Glargine Solostar 100 Units/Ml 3 Ml Pen) 0 units SC DAILY [facility] Stop: 01/07/22 08:59 Last Admin: 12/09/21 09:13 Dose: 40 units Documented by: Lactulose (Lactulose Syrup 10 Gm/15 Ml Btl 960 Ml) 45 gm PO BID [facility] Stop: 01/06/22 21:27 Last Admin: 12/09/21 11:04 Dose: Not Given Documented by: Lamotrigine (Lamotrigine 25 Mg Tab) 25 mg PO DAILY [facility] Stop: 01/07/22 08:59 Last Admin: 12/09/21 09:25 Dose: 25 mg Documented by: Lamotrigine (Lamotrigine 100 Mg Tab) 100 mg PO DAILY [facility] Stop: 01/07/22 08:59 Last Admin: 12/09/21 09:25 Dose: 100 mg Documented by: Lamotrigine (Lamotrigine 25 Mg Tab) 50 mg PO HS [facility] Stop: 01/06/22 22:14 Last Admin: 12/08/21 21:06 Dose: 50 mg Documented by: Levothyroxine Sodium (Levothyroxine Sodium 88 Mcg Tablet) 88 mcg PO DAILYBB [facility] Stop: 01/07/22 06:29 Last Admin: 12/09/21 06:10 Dose: 88 mcg Documented by: Methenamine Hippurate (Methenamine Hippurate 1 Gm Tab) 1 gm PO BID [facility] Stop: 01/06/22 21:27 Last Admin: 12/09/21 09:26 Dose: Not Given Documented by: Metoprolol Succinate (Metoprolol Succ 50mg Ext Rel Tab) 50 mg PO DAILY [facility] Stop: 01/08/22 08:59 Last Admin: 12/09/21 09:25 Dose: 50 mg Documented by: Miscellaneous (Carbohydrates For Hypoglycemia ) 15 - 30 gm PO UD PRN PRN Reason: Hypoglycemia Protocol Stop: 01/06/22 21:27 Miscellaneous (Estrace~Order Awaiting Action) 1 ea N/A QS [facility] Stop: 01/07/22 07:59 Last Admin: 12/09/21 09:05 Dose: Not Given Documented by: Montelukast Sodium (Montelukast Sodium 10 Mg Tablet) 10 mg PO DAILY@1600 [facility] Stop: 01/07/22 15:59 Last Admin: 12/08/21 18:04 Dose: 10 mg Documented by: Morphine Sulfate (Morphine Sulfate Cr 15 Mg Tabcr) 15 mg PO AMHS [facility] Stop: 12/21/21 22:14 Last Admin: 12/09/21 09:24 Dose: 15 mg Documented by: Nitroglycerin (Nitroglycerin Sl 0.4 Mg/Tab Tab) 0.4 mg SL UD PRN PRN Reason: Chest Pain Stop: 01/06/22 21:27 Ondansetron HCl (Ondansetron Inj 2 Mg/Ml 2 Ml Vial) 4 mg IV Q6H PRN PRN Reason: Nausea Stop: 01/06/22 21:27 Last Admin: 12/09/21 10:25 Dose: 4 mg Documented by: Oxybutynin Chloride (Oxybutynin Chloride Xl 5 Mg Tabcr) 10 mg PO QAM [facility] Stop: 01/07/22 08:59 Last Admin: 12/09/21 09:21 Dose: 10 mg Documented by: Oxycodone HCl (Oxycodone Hcl Ir 5 Mg Tab (Immediate Release)) 5 mg PO Q8 PRN PRN Reason: Outbreak Stop: 12/21/21 21:27 Last Admin: 12/09/21 15:13 Dose: 5 mg Documented by: Pantoprazole Sodium (Pantoprazole 40 Mg Tab) 40 mg PO DAILYBB [facility] Stop: 01/07/22 06:29 Last Admin: 12/09/21 06:10 Dose: 40 mg Documented by: Polyethylene Glycol (Polyethylene (Miralax) 17 Gm Pack) 17 gm PO DAILY PRN PRN Reason: Constipation Stop: 01/06/22 21:27 Rifaximin (Rifaximin 550 Mg Tablet) 550 mg PO BID [facility] Stop: 01/06/22 22:14 Last Admin: 12/09/21 09:21 Dose: 550 mg Documented by: Spironolactone (Spironolactone 25 Mg Tab) 50 mg PO BID [facility] Stop: 01/06/22 22:14 Last Admin: 12/09/21 09:21 Dose: 50 mg Documented by: Tamsulosin HCl (Tamsulosin Hcl 0.4 Mg Cap) [facility] Stop: 01/07/22 08:59 Last Admin: 12/09/21 09:21 Dose: 0.4 mg Documented by: Torsemide (Torsemide 20 Mg Tab) 20 mg PO [facility] Stop: 01/07/22 08:59 Last Admin: 12/09/21 09:21 Dose: 20 mg Documented by: Venlafaxine HCl (Venlafaxine Hcl Xr 75 Mg Capxr) 75 mg PO [facility] Stop: 01/07/22 08:59 Last Admin: 12/09/21 09:21 Dose: 75 mg Documented by: Venlafaxine HCl (Venlafaxine Hcl Xr 150 Mg Capxr) 150 mg PO [facility] Stop: 01/07/22 08:59 Last Admin: 12/09/21 09:21 Dose: 150 mg Documented by:
[2021-12-09] MEDS: MONTELUKAST SODIUM 10 MG TABLET PO SCH (17:50)
[2021-12-09] MEDS: ARIPIprazole 1 MG/ML ORAL SOLN 150 ML BTL PO SCH (20:48)
[2021-12-09] MEDS: ENOXAPARIN INJ 40 MG/0.4 ML SYR SQ SCH (20:50)
[2021-12-10] MEDS: PANTOprazole 40 MG TAB PO SCH (05:44)
[2021-12-10] MEDS: LEVOTHYROXINE SODIUM 88 MCG TABLET PO SCH (05:44)
[2021-12-10] MEDS: ESTRACE~ORDER AWAITING ACTION SCH (07:49)
[2021-12-10] MEDS: TAMSULOSIN HCL 0.4 MG CAP PO SCH (07:50)
[2021-12-10] MEDS: lamoTRIgine 100 MG TAB PO SCH (07:50)
[2021-12-10] MEDS: METHENAMINE HIPPURATE 1 GM TAB PO SCH (07:50)
[2021-12-10] MEDS: METOPROLOL SUCC 50MG EXT REL TAB PO SCH (07:50)
[2021-12-10] MEDS: TORSEMIDE 20 MG TAB PO SCH (07:50)
[2021-12-10] MEDS: GABAPENTIN 300 MG CAP PO SCH (07:51)
[2021-12-10] MEDS: VENLAFAXINE HCL XR 150 MG CAPXR PO SCH (07:51)
[2021-12-10] MEDS: OXYBUTYNIN CHLORIDE XL 5 MG TABCR PO SCH (07:51)
[2021-12-10] MEDS: rifAXIMin 550 MG TABLET PO SCH (07:51)
[2021-12-10] MEDS: VENLAFAXINE HCL XR 75 MG CAPXR PO SCH (07:51)
[2021-12-10] MEDS: ASCORBIC ACID 500 MG TAB PO SCH (07:52)
[2021-12-10] MEDS: SPIRONOLACTONE 25 MG TAB PO SCH (07:52)
[2021-12-10] MEDS: ASPIRIN 81 MG ECTAB PO SCH (07:52)
[2021-12-10] MEDS: lamoTRIgine 25 MG TAB PO SCH (07:52)
[2021-12-10] MEDS: ATORVASTATIN 40 MG TAB PO SCH (07:53)
[2021-12-10] MEDS: FLUTICASONE PROPIONATE NA SPR 16 GM BTL NAE SCH (07:53)
[2021-12-10] MEDS: clonazePAM 0.5 MG TAB PO SCH (07:55)
[2021-12-10] MEDS: MoRPHine SULFATE CR 15 MG TABCR PO SCH (07:55)
[2021-12-10] MEDS: LACTULOSE SYRUP 10 GM/15 ML BTL 960 ML PO SCH (07:56)
[2021-12-10] MEDS: INSULIN GLARGINE SOLOSTAR 100 UNITS/ML 3 ML PEN SC SCH (08:31)
[2021-12-10] MEDS: INSULIN ASPART PER UNIT SC SCH ×2 (08:33→12:28)
--- NOTE | 2021-12-10 11:09 | Discharge Summary ---
Date of Service December 10, 2021 Admission HPI Per Admitting Provider Patient is 71 y/o F with PMH DM II, cirrhosis, hepatic encephalopathy, HTN, chronic diastolic CHF, CAD s/p stent, moderate aortic stenosis, h/o UTI, [id number]-mnbvl, thrombocytopenia, bipolar disorder presented to ER with c/o recurrent falls. She reports got up to go to bathroom and started to fall and grabbed walker however walker tipped over and she fell to ground and reports hitting her head. Denies LOC, syncope. Reports had some foot discomfort, otherwise denies other injury. Patient also reports 2 other falls past 1.5 weeks also and reports she looses her balance and falls. Denies any dizziness, CP, SOB prior to falls. Usually has caregiver for 16-20 hours a day and daughter to help fill in the remaining hours however her caregiver is out of town and daughter is unavailable currently secondary to other family medical emergency. Denies fever/chills, diaphoresis, N/V/D/C, NELSON, dizziness, syncope, vision changes, neck pain, CP, SOB, orthopnea, palpitations, cough, sore throat, choking, otalgia, rhinorrhea, abdominal pain, paresthesias, extremity edema, rashes, urinary symptoms. Principal Diagnosis Falls at home Ambulatory dysfunction Debility Discharge Exam Patient feels well. Looking forward to returning home No acute distress, non toxic Breathing comfortably on room air CV- regular rate and rhythm No lower extremity swelling Discharge Data Allergies Allergy/AdvReac Type Severity Reaction Status Date / Time propoxyphene Allergy Mild Rash Verified 10/10/21 13:26 fentanyl AdvReac Intermediate PANIC Verified 10/10/21 13:26 WANTS TO RUN AND AGGRESSIVE zolpidem AdvReac Intermediate confusion Verified 10/10/21 13:26 methocarbamol AdvReac Mild DELERIUM Verified 10/10/21 13:26 Consultations 12/07/21 18:05 ED Decision to Admit Stat Ordered Studies 12/07/21 15:29 CT cervical spine wo con Stat CT head/brain wo con Stat Hospital Course (1) Ambulatory dysfunction: (2) Recurrent falls: Patient is 71 y/o F with PMH DM II, cirrhosis, hepatic encephalopathy, HTN, chronic diastolic CHF, CAD s/p stent, moderate aortic stenosis, history of UTI, Daztscz-[id number] with chronic foot drop requiring brace, thrombocytopenia, bipolar disorder presented to ER 12/07 for more frequent falls at home. Patient with charcot-jeanine tooth feet bilaterally and has chronic foot drop for which she wears braces on both feet, however she does not wear them consistently. Baseline she also ambulates with a walker. She lives in her own home and daughter lives nearby. She currently has daily home advisor and help from her daughter as well. She was admtited for PT/OT evaluation, she was evaluated here and recommended rehab however she declines rehab and instead wants to return home. This was discussed with her daughter, Carolyn, who is in support of her mother returning home. Carolyn is in the process of having mom's home care services increased and feels comfortable taking her mother home. Of note, there is also concern of polypharmacy contributing to her falls so her antihypertensives were reduced (toprol 50mg reduced to daily) and imdur was discontinued. Her orthostatic VS were negative but her BP overall was low normal (116/77 at time of discharge). Her BP remains stable on the reduced doses of medications. In addition, she is on Klonopin for anxiety and chronic pain medications. It was recommended that she speak with her PCP about titrating down these medications oysterman. Her remaining home medications were unchanged. She was in stable condition at time of discharge Total Time Total Time Spent Total Time Spent (In Minutes): 40 Discharge Plan Discharge Items Patient Disposition: Home - Home Health Services Reason For Visit: FALL, AMBULATORY DYSFUNCTION Discharge Diagnosis: Falls at home Ambulatory dysfunction Activity: Resume your previous activity Non-emergency contact: Primary Care Provider Call non-emergency contact if: you have any medication questions and your symptoms worsen Follow-up/Referrals: Brian Domínguez MD [Primary Care Provider] - Diet: Carb Consistent or DM2 and Heart Healthy Addtl Attending Provider Instructions: You were admitted for more frequent falls at home. You were seen by physical therapy and rehab was recommended but you declined rehab You will return home with home care services Your blood pressure medications were reduced here (Metoprolol XL 50mg reduced to daily) and Imdur was discontinued. Your blood pressure has been stable here Please talk to your PCP about your chronic pain medications as this may contribute to your falls Pending Studies at Discharge: No Stand-Alone Forms: My [employer], Smoking Cessation Medications and DC Order Prescriptions: New metoprolol succinate 50 mg Tablet Extended Release 24 Hr 50 mg PO DAILY 30 Days Qty: 30 RF: 0 Continued levothyroxine 88 mcg tablet 88 mcg PO QAM RF: 0 aripiprazole 2 mg tablet 2 mg PO HS RF: 0 nitroglycerin [Nitrostat] 0.4 mg Tablet, Sublingual 0.4 mg Sublingual DIRECTED PRN (Reason: Chest Pain) RF: 0 albuterol sulfate [Ventolin HFA] 90 mcg/actuation Hfa Aerosol Inhaler 2 puff INHALATION QID PRN (Reason: Shortness Of Breath Or Wheezing) RF: 0 morphine 15 mg Tablet Extended Release 15 mg PO AMHS RF: 0 montelukast 10 mg Tablet 10 mg PO DAILY@1600 RF: 0 insulin glargine [Basaglar KwikPen U-100 Insulin] 100 unit/mL (3 mL) Insulin Pen 60 unit SUBCUT QAM RF: 0 spironolactone [Aldactone] 50 mg tablet 50 mg PO BID RF: 0 venlafaxine 75 mg capsule,extended release 24hr 75 mg PO QAM RF: 0 Xifaxan 550 mg Tablet 550 mg PO BID RF: 0 aspirin 81 mg Tablet,Delayed Release (Dr/Ec) 81 mg PO DAILY RF: 0 pantoprazole 40 mg tablet,delayed release (DR/EC) 40 mg PO DAILYBB RF: 0 fluticasone propionate 50 mcg/actuation spray,suspension 2 spray INTRANASAL DAILY RF: 0 oxycodone 5 mg tablet 5 mg PO Q8 PRN (Reason: Outbreak) RF: 0 lactulose 10 gram/15 mL Solution 45 g PO BID RF: 0 ergocalciferol (vitamin D2) 1,250 mcg (50,000 unit) capsule 1,250 mcg PO WK RF: 0 oxybutynin chloride 10 mg tablet extended release 24hr 10 mg PO QAM RF: 0 tamsulosin 0.4 mg capsule 0.4 mg PO QAM RF: 0 estradiol 0.01 % (0.1 mg/gram) cream 1 applic VAGINAL HS RF: 0 atorvastatin 40 mg tablet 40 mg PO QAM RF: 0 ondansetron HCl 8 mg tablet 8 mg PO Q8 PRN (Reason: Nausea) RF: 0 dicyclomine 10 mg capsule 10 mg PO QID PRN (Reason: Abdominal Pain) RF: 0 torsemide 20 mg tablet 20 - 40 mg PO QAM RF: 0 ascorbic acid (vitamin C) 500 mg Tablet 500 mg PO BID RF: 0 Trulicity 4.5 mg/0.5 mL pen injector 1.4 mg SUBCUT WK RF: 0 venlafaxine 150 mg capsule,extended release 24hr 150 mg PO QAM RF: 0 gabapentin 300 mg capsule 300 mg PO BID RF: 0 clonazepam 0.5 mg tablet 0.5 mg PO TID RF: 0 lamotrigine 25 mg tablet 25 mg PO DAILY RF: 0 lamotrigine 100 mg tablet 100 mg PO DAILY RF: 0 methenamine hippurate [Hiprex] 1 gram tablet 1 g PO BID RF: 0 lamotrigine 25 mg tablet 50 mg PO HS RF: 0 Discontinued metoprolol succinate 50 mg Tablet Extended Release 24 Hr 50 mg PO BID RF: 0 isosorbide mononitrate 30 mg tablet extended release 24 hr 30 mg PO QAM RF: 0 Discharge Orders: Discharge Order (Routine); Ordered 12/10/21 Ordered By: Rosalia Dumont Admission Data Admit Date/Time: 12/07/21 18:30 Attending Provider: Rosalia Dumont Admit Provider: Azucena Smith I. Primary Care Provider: Brian Domínguez Other Providers: Azucena Smith I. ; [facility]
[2021-12-10] MEDS: ALBUTEROL HFA 8 GM INHALER INH PRN (12:02)
== END 2021-12-10 12:51 | disposition home health service (06) | DRG 92 ==
LOC: ED 15:16 → 3W 18:30 → INTOOBSV 18:30 → SUATTDRO 18:30 → OBSVTOIN 18:31 → 3W 20:57

== ENCOUNTER 2021-12-12 13:49 | Observation (INO) ==
[2021-12-12] MEDS ORDERED: SODIUM CHLORIDE 0.9% 1000ML 1,000 ML IV SCH (15:00)
--- NOTE | 2021-12-12 15:27 | XRay Report ---
XR chest 1V portable HISTORY: 71 years-old Female weakness acute weakness COMPARISON: Chest radiographs 11/23/2021 TECHNIQUE: Portable AP view of the chest FINDINGS: The cardiac silhouette is mildly enlarged. Atherosclerosis of the aorta. Prior median sternotomy. Pul monary vascular congestion. No pneumothorax or large pleural effusion. Mild linear bibasilar opacitie s are similar to prior. Degenerative changes of the shoulders and spine. IMPRESSION: 1. Cardiomegaly with pulmonary vascular congestion. 2. Linear bibasilar densities are similar to prior study and are suggestive of atelectasis versus sca rring. ACT 112: Negative or not required by law. The above report was generated using voice recognition software. It may contain grammatical, syntax o r spelling errors. Electronically signed by: Tommie Loredo M.D. 12/12/2021 3:26 PM
[2021-12-12 15:44] LABS: Basophils # (auto) 0.01 K/uL (0-0.2); Basophils % (auto) 0.2 %; Eosinophils # (auto) 0.12 K/uL (0-0.5); Eosinophils % (auto) 1.9 %; Hematocrit (blood only) 35.3 % (37-47); Hemoglobin 11.3 g/dL (12.0-16.0); Immature Granulocytes # (auto) 0.03 K/uL (0.00-0.02); Immature Granulocytes % (auto) 0.5 %; Lymphocytes # (auto) 1.14 K/uL (1.2-3.4); Lymphocytes % (auto) 18.1 %; Mean Corpuscular Hemoglobin 24.5 pg (25-34); Mean Corpuscular Volume 76.4 fL (80-100); Mean Platelet Volume 10.4 fL (7.4-10.4); Monocytes # (auto) 0.67 K/uL (0.11-0.59); Monocytes % (auto) 10.6 %; Neutrophils # (auto) 4.33 K/uL (1.4-6.5); Neutrophils % (auto) 68.7 %; Platelet Count 151 K/uL (130-400); RDW Coefficient of Variation 17.9 % (11.5-14.5); RDW Standard Deviation 48.7 fL (36.4-46.3); Red Blood Count 4.62 M/uL (4.2-5.4)
--- NOTE | 2021-12-12 15:47 | CT Scan Report ---
CT SCAN OF THE BRAIN WITHOUT IV CONTRAST CLINICAL HISTORY: General is weakness. Falls. Headache. COMPARISON STUDY: CT of the brain dated 12/07/2021. TECHNIQUE: Unenhanced axial CT scan of the brain is performed from the vertex to the skull base. A do se lowering technique was utilized adhering to the principles of ALARA. CT DOSE: 638.56 mGycm FINDINGS: Brain parenchyma: There is age-related involutional change noting mild subcortical and periventricula r microangiopathic disease. There is no hemorrhage, mass effect, or evidence of acute territorial isc hemia by CT criteria. Garcia-white matter differentiation is preserved. No extra-axial fluid collection is seen. Ventricles, sulci, cisterns: Prominent secondary to involutional change. Intracranial vasculature: There is atherosclerotic calcification of the cavernous carotid and vertebr al arteries. Calvarium: Unremarkable. Sinuses and mastoids: The visualized paranasal sinuses are clear. The mastoid air cells are well pneu matized. Orbits: The bony orbits are grossly intact. There are bilateral ocular lens implants. IMPRESSION: There is no hemorrhage, mass effect, or evidence of acute territorial ischemia by CT cande raymundo. ACT 112: Negative or not required by law. Electronically signed by: Berto Snow M.D. 12/12/2021 3:45 PM
[2021-12-12 15:56] LABS: Appearance Urine Clear (Clear); Bilirubin Urine Negative (Negative); Blood Urine Negative (Negative); Color Urine Yellow; Glucose Urine UA Negative (Negative); Ketones Urine Negative (Negative); Leukocyte Esterase Urine Negative (Negative); Nitrite Urine Negative (Negative); Protein Urine Negative (Negative); Specific Gravity Urine 1.006 (1.000-1.030); Urobilinogen Urine Negative (Negative)
[2021-12-12 16:17] LABS: Alanine Aminotransferase 45 U/L (7-52); Albumin Globulin Ratio 1.1 (0.9-2); Albumin Level 3.6 gm/dl (3.4-5.0); Alkaline Phosphatase 207 U/L (34-104); Anion Gap 8 (3-11); Bilirubin,Total 0.9 mg/dl (0.2-1.0); Blood Urea Nitrogen 8 mg/dl (6-23); Calcium 9.1 mg/dl (8.5-10.1); Carbon Dioxide 29 mmol/L (21-32); Chloride 96 mmol/L (98-107); Creatinine Clr Calc Pharmacy 59.8 ml/min; Est GFR (African American) 55.6 ml/min; Globulin 3.2 gm/dl (2.5-4.0); Glucose 202 mg/dl (70-99(Fasting)); Magnesium 1.8 mg/dl (1.7-2.4); Sodium 133 mmol/L (136-145); Total Protein 6.8 gm/dl (6.0-8.3); Troponin I High Sensitivity 6.6 pg/ml (0-14)
[2021-12-12 16:42] LABS: Influenza A virus by PCR Negative (Neg); Influenza B virus by PCR Negative (Neg); RSV by PCR Negative (Neg); SARS CoV2 RNA(COVID-19) InHosp NEGATIVE (Negative)
--- NOTE | 2021-12-12 17:20 | Emergency Department Note ---
ED Provider Note CHIEF COMPLAINT: Weakness, nausea, falls HISTORY OF PRESENT ILLNESS: This 71-year-old female patient presents to the emergency department from home complaining of "sickness in the head, sickness in the stomach" and states that she falls quite frequently. Patient states she did bump her head the other day, but she did not feel it was significant. She is able to get herself up off the floor by scooting and using furniture to assist her to her knees. Patient denies any lower extremity injuries or pain at this time. She states she has in-home caregivers for approximately 12 hours a day. She is not anticoagulated. She denies any vomiting, diarrhea, chest pain, urinary symptoms at this time. REVIEW OF SYSTEMS: A review of systems was performed with positives and pertinent negatives listed in the history of present illness. 10 systems were reviewed and are otherwise negative. ALLERGIES: see below MEDICATIONS: see below PMH: see below SOCIAL HISTORY: see below DDx: Infection, dehydration, metabolic abnormality, hypo/hyperglycemia, electrolyte disturbance, anemia, hypoxia, cardiac sources, intracerebral event, toxicologic, neurologic, as well as other pathologies. PHYSICAL EXAM: Vital signs reviewed. General: Chronically ill-appearing, fatigue 21-year-old female, in no significant distress. HEENT: No scleral icterus, PERRLA, neck supple. Atraumatic. Cardiovascular: Regular rate and rhythm, systolic ejection murmur. Pulmonary: Clear to auscultation bilaterally, normal work of breathing. Abdomen: Soft, nontender, nondistended, positive bowel sounds. Musculoskeletal: Atraumatic, no peripheral edema. Neurologic: Patient awake alert and oriented x 3 Skin: Warm, dry, no rash EMERGENCY DEPARTMENT COURSE/MDM: This patient was evaluated and appeared to be in no significant distress. Patient was placed on the tube sizer and cutter operator and noted to be in a normal sinus rhythm. Patient's laboratory work is reassuring, UA is negative. CT scan of the head was performed and is negative for acute process. Patient's daughter arrived in the emergency department many hours into her stay. She expressed her concern about patient's change in mental status. She is concerned that the patient may have gotten off her lactulose schedule between her recent hospitalization and return to her home. She does have caregivers in 12 hours a day. Patient's daughter is there the rest of the day. Patient's ammonia level is pending at this time. The case has been discussed with Dr. Elizalde. The hospitalist service will evaluate the patient for admission and further management. MONITORING: An order for cardiac monitoring was placed and the patient is noted to be in a normal sinus rhythm at 71 beats per minute. RADIOLOGY: See below EKG: Normal sinus rhythm at 74 bpm. Left axis deviation. QTc is 435. T wave inversions noted in the anterior leads. No change from previous dated 12/07/2021 DISPOSITION: Admit Past Med/Surg History Medical History (Updated 12/12/21 @ 20:53 by Radha Ruggiero MD) Anxiety Bipolar disorder CAD (coronary artery disease) History of multiple PCI's to the RCA with subsequent CABG x1 in 2010 x 1 vessel Most recent cardiac testing-negative DSE in December 2017 Follows w/ Dr. Blackwell and Dr. Lucas [id number] disease follows w/ Dr. Lemus Chronic diastolic CHF (congestive heart failure) Chronic pain syndrome Depression DM type 2 (diabetes mellitus, type 2) IDDM Dyslipidemia Encephalopathy d/c from [facility] 09/20/19 (hepatic encephalopathy) Gastroparesis GERD (gastroesophageal reflux disease) Hypertension Hypothyroidism Irregular heart beat follows Dr. 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 Moderate aortic stenosis GONZALEZ (nonalcoholic steatohepatitis) Osteoarthritis Portal hypertensive gastropathy Spondylosis Urinary incontinence UTI (urinary tract infection) REASON FOR CIPRO Surgical History History of appendectomy History of back surgery sacral area History of cardiac cath multiple - most recent - 2 years ago @ [facility] History of cataract surgery RT History of colonoscopy History of esophagogastroduodenoscopy (EGD) History of heart artery stent 2 yrs ago @ [facility] > unsure of how many stents > follows Dr. Lucas History of total right knee replacement Hx of cholecystectomy S/P CABG x 1 2010 - single vessel S/P CARLOS (total abdominal hysterectomy) Family History Father Coronary heart disease Brother Coronary heart disease Father Diabetes Mother Diabetes Social History Smoking Status: Never smoker Second Hand Exposure: Yes (DAUGHTER SMOKES); Hx Alcohol Use: No Hx Substance Use: No Preferred Language: Estonian Communication Ability: Effective Pot Fireman Required: No Beliefs That Will Affect Care: None marital status: / Current Living Situation: Alone How many Children do You have: 0 Feels Safe at Home: Yes Assistive Devices: Cane, Walker and Wheelchair Allergies Allergies Allergy/AdvReac Type Severity Reaction Status Date / Time propoxyphene Allergy Mild Rash Verified 12/12/21 15:01 fentanyl AdvReac Intermediate PANIC Verified 12/12/21 15:01 WANTS TO RUN AND AGGRESSIVE zolpidem AdvReac Intermediate confusion Verified 12/12/21 15:01 methocarbamol AdvReac Mild DELERIUM Verified 12/12/21 15:01 Home Meds Home Medications Medication Instructions Recorded Confirmed albuterol sulfate 90 mcg/actuation 2 puff INHALATION QID PRN 04/27/18 12/12/21 aerosol inhaler (Ventolin HFA) aripiprazole 2 mg tablet 2 mg PO HS 04/27/18 12/12/21 levothyroxine 88 mcg tablet 88 mcg PO QAM 04/27/18 12/12/21 nitroglycerin 0.4 mg sublingual 0.4 mg SUBLINGUAL DIRECTED PRN 04/27/18 12/12/21 tablet (Nitrostat) montelukast 10 mg tablet 10 mg PO DAILY@1600 06/11/19 12/12/21 spironolactone 50 mg tablet 50 mg PO BID 09/15/19 12/12/21 (Aldactone) venlafaxine 75 mg capsule,extended 75 mg PO QAM 09/15/19 12/12/21 release 24 hr insulin glargine 100 unit/mL (3 60 unit SUBCUT QAM 12/22/19 12/12/21 mL) subcutaneous pen (Basaglar KwikPen U-100 Insulin) morphine 15 mg tablet,extended 15 mg PO AMHS 01/16/20 12/12/21 release rifaximin 550 mg tablet (Xifaxan) 550 mg PO BID 03/21/20 12/12/21 venlafaxine 150 mg 150 mg PO QAM 01/07/21 12/12/21 capsule,extended release 24 hr aspirin 81 mg tablet,delayed 81 mg PO DAILY 01/26/21 12/12/21 release oxycodone 5 mg tablet 5 mg PO Q8 PRN 01/26/21 12/12/21 pantoprazole 40 mg tablet,delayed 40 mg PO DAILYBB 01/26/21 12/12/21 release gabapentin 300 mg capsule 300 mg PO BID 02/26/21 12/12/21 clonazepam 0.5 mg tablet 0.5 mg PO TID 03/23/21 12/12/21 atorvastatin 40 mg tablet 40 mg PO QAM 10/10/21 12/12/21 dicyclomine 10 mg capsule 10 mg PO QID PRN 10/10/21 12/12/21 ergocalciferol (vitamin D2) 1,250 1,250 mcg PO WK 10/10/21 12/12/21 mcg (50,000 unit) capsule estradiol 1 applic VAGINAL HS 10/10/21 12/12/21 ondansetron HCl 8 mg tablet 8 mg PO Q8 PRN 10/10/21 12/12/21 oxybutynin chloride 10 mg 10 mg PO QAM 10/10/21 12/12/21 tablet,extended release 24 hr tamsulosin 0.4 mg capsule 0.4 mg PO QAM 10/10/21 12/12/21 torsemide 20 mg tablet 20 - 40 mg PO QAM 10/10/21 12/12/21 lamotrigine 100 mg tablet 100 mg PO DAILY 11/23/21 12/12/21 lamotrigine 25 mg tablet 75 mg PO DAILY 11/23/21 12/12/21 methenamine hippurate 1 gram 1 g PO BID 11/23/21 12/12/21 tablet (Hiprex) ascorbic acid (vitamin C) 500 mg 500 mg PO BID 12/07/21 12/12/21 tablet dulaglutide 4.5 mg/0.5 mL 1.4 mg SUBCUT WK 12/07/21 12/12/21 subcutaneous pen injector (Trulicity) isosorbide mononitrate 30 mg 30 mg PO DAILY 12/12/21 12/12/21 tablet,extended release 24 hr metoprolol succinate 50 mg 50 mg PO BID 12/12/21 12/12/21 tablet,extended release 24 hr nitrofurantoin 100 mg PO DAILY 12/12/21 12/12/21 monohydrate/macrocrystals 100 mg capsule Results & Data (ED) Vital Signs Vital Signs - 24 hr 12/12/21 14:00 12/12/21 14:06 12/12/21 15:44 Temperature 37.3 C Temperature Source Oral Pulse Rate 72 71 Pulse Rate [Apical] Pulse Rhythm [Apical] Respiratory Rate 21 17 Respiratory Effort / Characteristics Non-Labored Spontaneous Respiratory Depth Normal Respiratory Pattern Blood Pressure 134/76 134/76 Blood Pressure [Left Arm] Blood Pressure Mean 95 95 Blood Pressure Mean [Left Arm] Blood Pressure Position Sitting Pulse Oximetry 93 95 94 Oxygen Delivery Method Room Air Room Air Room Air Sepsis Recent Fever Within 48 Hours No Sepsis New/Unexplained Change in Mental Status Yes Sepsis Action Taken by Nursing No Action Required 12/12/21 17:10 12/12/21 18:01 12/12/21 19:01 Temperature Temperature Source Pulse Rate 69 72 Pulse Rate [Apical] 74 Pulse Rhythm [Apical] Regular Respiratory Rate 23 22 18 Respiratory Effort / Characteristics Non-Labored Spontaneous Respiratory Depth Normal Respiratory Pattern Regular Blood Pressure 126/72 139/85 Blood Pressure [Left Arm] 153/78 H Blood Pressure Mean 90 103 Blood Pressure Mean [Left Arm] 103 Blood Pressure Position Pulse Oximetry 97 95 98 Oxygen Delivery Method Room Air Room Air Room Air Sepsis Recent Fever Within 48 Hours Sepsis New/Unexplained Change in Mental Status Sepsis Action Taken by [facility] Medications Current Medication List: was personally reviewed by me Laboratory Data Attestation: I reviewed the patient's lab results. Result diagrams: 12/12/21 15:14 12/12/21 17:13 Lab Results 12/12/21 12/12/21 12/12/21 Range/Units 13:54 15:14 15:14 WBC 6.30 (4.8-10.8) K/uL RBC 4.62 (4.2-5.4) M/uL Hgb 11.3 L (12.0-16.0) g/dL Hct 35.3 L (37-47) % MCV 76.4 L (80-100) fL MCH 24.5 L (25-34) pg MCHC 32.0 (32-36) g/dL RDW Std Deviation 48.7 H (36.4-46.3) fL RDW Coeff of Guillermo 17.9 H (11.5-14.5) % Plt Count 151 (130-400) K/uL MPV 10.4 (7.4-10.4) fL Immature Gran % (Auto) 0.5 % Neut % (Auto) 68.7 % Lymph % (Auto) 18.1 % [place] % (Auto) 10.6 % Eos % (Auto) 1.9 % Baso % (Auto) 0.2 % Neut # (Auto) 4.33 (1.4-6.5) K/uL Lymph # (Auto) 1.14 L (1.2-3.4) K/uL [place] # (Auto) 0.67 H (0.11-0.59) K/uL Eos # (Auto) 0.12 (0-0.5) K/uL Baso # (Auto) 0.01 (0-0.2) K/uL Immature Gran # (Auto) 0.03 H (0.00-0.02) K/uL Sodium 133 L (136-145) mmol/L Potassium TNP Chloride 96 L (98-107) mmol/L Carbon Dioxide 29 (21-32) mmol/L Anion Gap 8 (3-11) BUN 8 (6-23) mg/dl Creatinine 1.14 (0.6-1.2) mg/dl Est Cr Clr Drug Dosing 59.8 ml/min Est GFR ( Amer) 55.6 ml/min Est GFR (Non-Af Amer) 48.0 ml/min BUN/Creatinine Ratio 7.0 L (10-20) Glucose 202 H (70-99(Fasting)) mg/dl POC Glucose 294 H (70-99) mg/dl Calcium 9.1 (8.5-10.1) mg/dl Magnesium 1.8 (1.7-2.4) mg/dl Total Bilirubin 0.9 (0.2-1.0) mg/dl AST TNP ALT 45 (7-52) U/L Alkaline Phosphatase 207 H (34-104) U/L Troponin I High Sens 6.6 (0-14) pg/ml Total Protein 6.8 (6.0-8.3) gm/dl Albumin 3.6 (3.4-5.0) gm/dl Globulin 3.2 (2.5-4.0) gm/dl Albumin/Globulin Ratio 1.1 (0.9-2) TSH (0.300-4.500) uIu/ml Urine Color Urine Appearance (Clear) Urine pH (4.5-7.5) Ur Specific [place] (1.000-1.030) Urine Protein (Negative) Urine Glucose (UA) (Negative) Urine Ketones (Negative) Urine Blood (Negative) Urine Nitrite (Negative) Urine Bilirubin (Negative) Urine Urobilinogen (Negative) Ur Leukocyte Esterase (Negative) SARS-CoV-2 (PCR) (Negative) Influenza Type A (PCR) (Neg) Influenza Type B (PCR) (Neg) RSV (RT-PCR) (Neg) 12/12/21 12/12/21 12/12/21 Range/Units 15:14 15:14 15:32 WBC (4.8-10.8) K/uL RBC (4.2-5.4) M/uL Hgb (12.0-16.0) g/dL Hct (37-47) % MCV (80-100) fL MCH (25-34) pg MCHC (32-36) g/dL RDW Std Deviation (36.4-46.3) fL RDW Coeff of Guillermo (11.5-14.5) % Plt Count (130-400) K/uL MPV (7.4-10.4) fL Immature Gran % (Auto) % Neut % (Auto) % Lymph % (Auto) % [place] % (Auto) % Eos % (Auto) % Baso % (Auto) % Neut # (Auto) (1.4-6.5) K/uL Lymph # (Auto) (1.2-3.4) K/uL [place] # (Auto) (0.11-0.59) K/uL Eos # (Auto) (0-0.5) K/uL Baso # (Auto) (0-0.2) K/uL Immature Gran # (Auto) (0.00-0.02) K/uL Sodium (136-145) mmol/L Potassium Chloride (98-107) mmol/L Carbon Dioxide (21-32) mmol/L Anion Gap (3-11) BUN (6-23) mg/dl Creatinine (0.6-1.2) mg/dl Est Cr Clr Drug Dosing ml/min Est GFR ( Amer) ml/min Est GFR (Non-Af Amer) ml/min BUN/Creatinine Ratio (10-20) Glucose (70-99(Fasting)) mg/dl POC Glucose (70-99) mg/dl Calcium (8.5-10.1) mg/dl Magnesium (1.7-2.4) mg/dl Total Bilirubin (0.2-1.0) mg/dl AST ALT (7-52) U/L Alkaline Phosphatase (34-104) U/L Troponin I High Sens (0-14) pg/ml Total Protein (6.0-8.3) gm/dl Albumin (3.4-5.0) gm/dl Globulin (2.5-4.0) gm/dl Albumin/Globulin Ratio (0.9-2) TSH 2.043 (0.300-4.500) uIu/ml Urine Color Yellow Urine Appearance Clear (Clear) Urine pH 7.0 (4.5-7.5) Ur Specific [place] 1.006 (1.000-1.030) Urine Protein Negative (Negative) Urine Glucose (UA) Negative (Negative) Urine Ketones Negative (Negative) Urine Blood Negative (Negative) Urine Nitrite Negative (Negative) Urine Bilirubin Negative (Negative) Urine Urobilinogen Negative (Negative) Ur Leukocyte Esterase Negative (Negative) SARS-CoV-2 (PCR) NEGATIVE (Negative) Influenza Type A (PCR) Negative (Neg) Influenza Type B (PCR) Negative (Neg) RSV (RT-PCR) Negative (Neg) 12/12/21 Range/Units 17:13 WBC (4.8-10.8) K/uL RBC (4.2-5.4) M/uL Hgb (12.0-16.0) g/dL Hct (37-47) % MCV (80-100) fL MCH (25-34) pg MCHC (32-36) g/dL RDW Std Deviation (36.4-46.3) fL RDW Coeff of Guillermo (11.5-14.5) % Plt Count (130-400) K/uL MPV (7.4-10.4) fL Immature Gran % (Auto) % Neut % (Auto) % Lymph % (Auto) % [place] % (Auto) % Eos % (Auto) % Baso % (Auto) % Neut # (Auto) (1.4-6.5) K/uL Lymph # (Auto) (1.2-3.4) K/uL [place] # (Auto) (0.11-0.59) K/uL Eos # (Auto) (0-0.5) K/uL Baso # (Auto) (0-0.2) K/uL Immature Gran # (Auto) (0.00-0.02) K/uL Sodium (136-145) mmol/L Potassium 3.3 L Chloride (98-107) mmol/L Carbon Dioxide (21-32) mmol/L Anion Gap (3-11) BUN (6-23) mg/dl Creatinine (0.6-1.2) mg/dl Est Cr Clr Drug Dosing ml/min Est GFR ( Amer) ml/min Est GFR (Non-Af Amer) ml/min BUN/Creatinine Ratio (10-20) Glucose (70-99(Fasting)) mg/dl POC Glucose (70-99) mg/dl Calcium (8.5-10.1) mg/dl Magnesium (1.7-2.4) mg/dl Total Bilirubin (0.2-1.0) mg/dl AST 51 H ALT (7-52) U/L Alkaline Phosphatase (34-104) U/L Troponin I High Sens (0-14) pg/ml Total Protein (6.0-8.3) gm/dl Albumin (3.4-5.0) gm/dl Globulin (2.5-4.0) gm/dl Albumin/Globulin Ratio (0.9-2) TSH (0.300-4.500) uIu/ml Urine Color Urine Appearance (Clear) Urine pH (4.5-7.5) Ur Specific [place] (1.000-1.030) Urine Protein (Negative) Urine Glucose (UA) (Negative) Urine Ketones (Negative) Urine Blood (Negative) Urine Nitrite (Negative) Urine Bilirubin (Negative) Urine Urobilinogen (Negative) Ur Leukocyte Esterase (Negative) SARS-CoV-2 (PCR) (Negative) Influenza Type A (PCR) (Neg) Influenza Type B (PCR) (Neg) RSV (RT-PCR) (Neg) Administered Medications Sodium Chloride (Nss 1000ml) 1,000 mls @ 125 mls/hr IV .Q8H ANGELLA Stop: 12/12/21 22:59 Last Admin: 12/12/21 15:35 Dose: 125 mls/hr Documented by: [id number] Imaging Data Radiologist's Impression: Chest X-Ray 12/12/21 14:49 XR chest 1V portable HISTORY: 71 years-old Female weakness acute weakness COMPARISON: Chest radiographs 11/23/2021 TECHNIQUE: Portable AP view of the chest FINDINGS: The cardiac silhouette is mildly enlarged. Atherosclerosis of the aorta. Prior median sternotomy. Pulmonary vascular congestion. No pneumothorax or large pleural effusion. Mild linear bibasilar opacities are similar to prior. Degenerative changes of the shoulders and spine. IMPRESSION: 1. Cardiomegaly with pulmonary vascular congestion. 2. Linear bibasilar densities are similar to prior study and are suggestive of atelectasis versus scarring. ACT 112: Negative or not required by law. The above report was generated using voice recognition software. It may contain grammatical, syntax or spelling errors. Electronically signed by: Tommie Loredo M.D. 12/12/2021 3:[address] 12/12/21 14:49 CT SCAN OF THE BRAIN WITHOUT IV CONTRAST CLINICAL HISTORY: General is weakness. Falls. Headache. COMPARISON STUDY: CT of the brain dated 12/07/2021. TECHNIQUE: Unenhanced axial CT scan of the brain is performed from the vertex to the skull base. A dose lowering technique was utilized adhering to the principles of ALARA. CT DOSE: 638.56 mGycm FINDINGS: Brain parenchyma: There is age-related involutional change noting mild subcortical and periventricular microangiopathic disease. There is no hemorrhage, mass effect, or evidence of acute territorial ischemia by CT crit eria. Garcia-white matter differentiation is preserved. No extra-axial fluid collection is seen. Ventricles, sulci, cisterns: Prominent secondary to involutional change. Intracranial vasculature: There is atherosclerotic calcification of the cavernou s carotid and vertebral arteries. Calvarium: Unremarkable. Sinuses and mastoids: The visualized paranasal sinuses are clear. The mastoid air cells are well pneumatized. Orbits: The bony orbits are grossly intact. There are bilateral ocular lens implants. IMPRESSION: There is no hemorrhage, mass effect, or evidence of acute territorial ischemia by CT criteria. ACT 112: Negative or not required by law. Electronically signed by: Berto Snow M.D. 12/12/2021 3:45 PM Blood Pressure Blood Pressure Findings: Elevated blood pressure Blood Pressure Disposition: further management by hospitalist Discharge Plan Visit Data Chief Complaint: Altered Mental Status Stated Complaint: LETHARGIC, WEAKNESS, CONFUSION ED Provider: Radha Ruggiero Discharge Problem: Encephalopathy Forms Stand Alone Forms: My [facility] Prescriptions Prescriptions: No Action levothyroxine 88 mcg tablet 88 mcg PO QAM RF: 0 aripiprazole 2 mg tablet 2 mg PO HS RF: 0 nitroglycerin [Nitrostat] 0.4 mg Tablet, Sublingual 0.4 mg Sublingual DIRECTED PRN (Reason: Chest Pain) RF: 0 albuterol sulfate [Ventolin HFA] 90 mcg/actuation Hfa Aerosol Inhaler 2 puff INHALATION QID PRN (Reason: Shortness Of Breath Or Wheezing) RF: 0 morphine 15 mg Tablet Extended Release 15 mg PO AMHS RF: 0 montelukast 10 mg Tablet 10 mg PO DAILY@1600 RF: 0 insulin glargine [Basaglar KwikPen U-100 Insulin] 100 unit/mL (3 mL) Insulin Pen 60 unit SUBCUT QAM RF: 0 spironolactone [Aldactone] 50 mg tablet 50 mg PO BID RF: 0 venlafaxine 75 mg capsule,extended release 24hr 75 mg PO QAM RF: 0 Xifaxan 550 mg Tablet 550 mg PO BID RF: 0 aspirin 81 mg Tablet,Delayed Release (Dr/Ec) 81 mg PO DAILY RF: 0 pantoprazole 40 mg tablet,delayed release (DR/EC) 40 mg PO DAILYBB RF: 0 oxycodone 5 mg tablet 5 mg PO Q8 PRN (Reason: Outbreak) RF: 0 ergocalciferol (vitamin D2) 1,250 mcg (50,000 unit) capsule 1,250 mcg PO WK RF: 0 oxybutynin chloride 10 mg tablet extended release 24hr 10 mg PO QAM RF: 0 tamsulosin 0.4 mg capsule 0.4 mg PO QAM RF: 0 estradiol 0.01 % (0.1 mg/gram) cream 1 applic VAGINAL HS RF: 0 atorvastatin 40 mg tablet 40 mg PO QAM RF: 0 ondansetron HCl 8 mg tablet 8 mg PO Q8 PRN (Reason: Nausea) RF: 0 dicyclomine 10 mg capsule 10 mg PO QID PRN (Reason: Abdominal Pain) RF: 0 torsemide 20 mg tablet 20 - 40 mg PO QAM RF: 0 ascorbic acid (vitamin C) 500 mg Tablet 500 mg PO BID RF: 0 Trulicity 4.5 mg/0.5 mL pen injector 1.4 mg SUBCUT WK RF: 0 venlafaxine 150 mg capsule,extended release 24hr 150 mg PO QAM RF: 0 gabapentin 300 mg capsule 300 mg PO BID RF: 0 clonazepam 0.5 mg tablet 0.5 mg PO TID RF: 0 lamotrigine 25 mg tablet 75 mg PO DAILY RF: 0 lamotrigine 100 mg tablet 100 mg PO DAILY RF: 0 methenamine hippurate [Hiprex] 1 gram tablet 1 g PO BID RF: 0 isosorbide mononitrate 30 mg tablet extended release 24 hr 30 mg PO DAILY RF: 0 nitrofurantoin monohyd/m-cryst 100 mg capsule 100 mg PO DAILY RF: 0 metoprolol succinate 50 mg tablet extended release 24 hr 50 mg PO BID RF: 0 Referrals Referrals: Brian Domínguez MD [Primary Care Provider] -
[2021-12-12 17:59] LABS: Potassium 3.3 mmol/L (3.5-5.1)
[2021-12-13] MEDS ORDERED: ALBUTEROL HFA 8 GM INHALER INH PRN (01:35)
[2021-12-13] MEDS ORDERED: DICYCLOMINE HCL 10 MG CAP PO PRN (01:35)
[2021-12-13] MEDS ORDERED: ONDANSETRON 4 MG OD TAB PO PRN (01:35)
[2021-12-13] MEDS ORDERED: NITROGLYCERIN SL 0.4 MG/TAB TAB SL PRN ×2 (01:35)
--- NOTE | 2021-12-13 01:49 | History and Physical Report ---
DATE OF ADMISSION: 12/12/2021. CHIEF COMPLAINT: Questionable altered mental status and ambulatory dysfunction. HISTORY OF PRESENT ILLNESS: This is a 71-year-old female with past medical history significant for type 2 diabetes, cirrhosis, history of hepatic encephalopathy, hypertension, chronic diastolic CHF, history of CAD, status post stent, history of moderate aortic stenosis, history of UTI, history of Smfinzj-Rinjc-Whssp, thrombocytopenia, bipolar disorder, who presents with recurrent falls, and also confusion. The patient was recently in the hospital for recurrent falls. PT, OT recommended rehab, but she declined rehab and she went to return home. The patient is living with her daughter. Last admission her Toprol was reduced from b.i.d. dose to once daily and Imdur was discontinued because of concern of polypharmacy contributing to her falls and BP was okay with changing of those medications. Supposed to follow with her PCP as the patient says she is also on Klonopin and chronic pain medications, to taper them. But the patient got discharged a couple of days ago and says after going home, she was falling frequently. She ambulates with a walker. Mental status seems okay in the ER, but daughter was concerned about mental status as the patient is getting more confused and also daughter is worried that may be she missed her lactulose after coming home, and she wanted to check ammonia level, but ammonia level came back as normal at 31. The patient is currently resting comfortably, hemodynamically stable. Denies any headache. No blurred vision. Sometimes, she feels double vision, but currently no double visions. No earache, no runny nose, no sore throat. She has a chronic cough since she had COVID, last May. Appetite is not that great, but no difficulty swallowing. Denies any chest pain. No shortness of breath. No nausea, no abdominal pain. She says she is moving bowels 3-4 times a day. Denies any blood in the stools. Sometimes her stools are black. Normal bladder movements. No edema ,afebrile. ALLERGIES: PROPOXYPHENE, FENTANYL, ZOLPIDEM, METHOCARBAMOL. PAST MEDICAL HISTORY: As mentioned above. PAST SURGICAL HISTORY: Heart catheterization, right knee arthroplasty, CABG, colonoscopy, EGD, EGD with endoscopic ultrasound, nerve biopsy right calf, appendectomy, cholecystectomy, total abdominal hysterectomy with removal of tubes. MEDICATIONS: The patient is on albuterol HFA 2 puffs inhalation q.i.d. p.r.n., aripiprazole 2 mg p.o. at bedtime, vitamin C 500 mg p.o. b.i.d., aspirin 81 mg p.o. daily, atorvastatin 40 mg p.o. a.m., Klonopin 0.5 mg p.o. t.i.d., dicyclomine 10 mg p.o. q.i.d. p.r.n., vitamin D 1250 mcg p.o. weekly, estradiol 1 application vaginal at bedtime, gabapentin 300 mg p.o. b.i.d., insulin glargine 60 units subcutaneous a.m., lactulose 45 g p.o. b.i.d., Lamictal 175 mg p.o. daily, levothyroxine 88 mcg p.o. daily, methenamine hippurate 1 gram p.o. b.i.d., metoprolol succinate 50 mg p.o. daily, montelukast 10 mg p.o. daily, morphine sulfate 15 mg p.o. AM and at bedtime, nitroglycerin 0.4 mg sublingual p.r.n., Zofran 8 mg p.o. q. 8 hours p.r.n., oxybutynin chloride 10 mg p.o. a.m., oxycodone 5 mg p.o. q. 8 hours p.r.n., Protonix 40 mg p.o. daily, spironolactone 50 mg p.o. b.i.d., Flomax 0.4 mg p.o. a.m., torsemide 20 to 40 mg p.o. a.m., Trulicity 1.5 subcutaneous weekly, venlafaxine 225 mg p.o. a.m., Xifaxan 550 mg p.o. b.i.d. FAMILY HISTORY: Significant for brother has CABG, father has PR, mother has angina. SOCIAL HISTORY: No smoking, no alcohol, no drug use. REVIEW OF SYSTEMS: As per HPI. Rest of the review of systems is negative. PHYSICAL EXAMINATION: GENERAL: The patient is of moderate build, not in acute distress. VITAL SIGNS: Temperature 37.3, pulse 73, respiratory rate 16, blood pressure 126/69, oxygen 96% on room air. HEENT: Pupils equal, round, and reactive to light. Oral mucosa moist. LUNGS: No JVD, no neck masses. CARDIOVASCULAR: S1 and S2 heard. Regular rate and rhythm. No murmur, no gallop. RESPIRATORY SYSTEM: Normal AP diameter. No accessory muscle use. No wheezing, no crackles. ABDOMEN: Soft. Bowel sounds are present, nontender, no distention. CENTRAL NERVOUS SYSTEM: Cranial nerves II through XII are grossly intact, nonfocal. EXTREMITIES: No edema, no erythema. LABORATORY DATA: WBC 6.3, hemoglobin 11.3, hematocrit 35.3, platelets 151. Sodium 133, potassium 3.3, chloride 96, CO2 of 29, BUN 8, creatinine 1.1, serum glucose 202, calcium 9.1, magnesium 1.8, total bilirubin 0.9, AST 51, ALT 45, alkaline phosphatase 207. Ammonia 31, troponin I high sensitivity 6.6. TSH 2.043. Urinalysis negative. Lamictal pending. SARS-CoV-2 PCR negative. Influenza A and B PCR negative. RSV PCR negative. IMAGING DATA: CT of the head without IV contrast, no acute findings. Chest x- ray, cardiomegaly with pulmonary vascular congestion, linear bibasilar densities similar to prior study and also history of atelectasis versus scarring. EKG: Normal sinus rhythm at a rate of 74, no significant change was found. ASSESSMENT AND PLAN: This is a 71-year-old female who presents with questionable altered mental status and ambulatory dysfunction. 1. Questionable confusion,daughter was worried that the patient was not taking lactulose at home and requested to check ammonia level, but ammonia level is okay. CT head was okay. Currently, the patient seems to be at her baseline. Will monitor in the hospital. 2. Ambulatory dysfunction: The patient was recently in the hospital. PT/OT recommended rehab, but the patient declined and went home. Will get PT, OT evaluation again in the hospital. May need rehab placement. 3. Bipolar, on Lamictal, on venlafaxine. Follow the Lamictal levels. 4. Liver cirrhosis: History of hepatic encephalopathy. Continue the lactulose and Xifaxan. Follow ammonia levels. 5. Gastroesophageal reflux disease: Continue Protonix. 6. History of hypertension: Continue her diuretics , Toprol-XL. Will monitor the blood pressure. 7. History of coronary artery disease: Status post stent, on aspirin, statin, and beta allie. 8. History of chronic diastolic congestive heart failure, history of moderate aortic stenosis. Monitor for volume overload, on diuretics. 9. History of urinary tract infection. 10. History of Wcinuaj-Sxset-Rdeyb: Chronic foot drop requiring brace. 11. History of diabetes: Continue her home long-acting insulin and placed on insulin sliding scale. Follow the blood sugars. 12. History of thrombocytopenia from liver cirrhosis: Platelets are 151 currently. 13. Deep venous thrombosis prophylaxis: Placed on heparin subQ. 14. Polypharmacy. Could be contributing to her illness. Last admission Toprol xl changed to once daily and Imdur stopped. Patient is on Klonopin and pain meds. May need to taper. DISPOSITION: Closely monitor in the med tele. PT/OT prior to discharge. Social service to help with discharge planning. Job ID: [id number] [facility]ITALMeghan
[2021-12-13] MEDS: oxyCODONE HCL IR 5 MG TAB (IMMEDIATE RELEASE) PO PRN ×2 (01:58→11:16)
[2021-12-13 05:54] LABS: Basophils # (auto) 0.01 K/uL (0-0.2); Basophils % (auto) 0.1 %; Eosinophils % (auto) 1.3 %; Hematocrit (blood only) 35.6 % (37-47); Hemoglobin 11.3 g/dL (12.0-16.0); Immature Granulocytes # (auto) 0.02 K/uL (0.00-0.02); Immature Granulocytes % (auto) 0.3 %; Lymphocytes # (auto) 1.63 K/uL (1.2-3.4); Lymphocytes % (auto) 21.6 %; Mean Corpuscular Hemoglobin 24.5 pg (25-34); Mean Corpuscular Hgb Conc 31.7 g/dL (32-36); Mean Corpuscular Volume 77.1 fL (80-100); Mean Platelet Volume 9.7 fL (7.4-10.4); Monocytes # (auto) 0.69 K/uL (0.11-0.59); Monocytes % (auto) 9.1 %; Neutrophils % (auto) 67.6 %; Platelet Count 134 K/uL (130-400); RDW Coefficient of Variation 18.1 % (11.5-14.5); Red Blood Count 4.62 M/uL (4.2-5.4); White Blood Count 7.55 K/uL (4.8-10.8)
[2021-12-13] MEDS: HEPARIN SOD 5,000 UNIT/0.5 ML VIAL SQ SCH ×2 (06:03→13:32)
[2021-12-13 06:07] LABS: Calcium 8.7 mg/dl (8.5-10.1); Creatinine Clr Calc Pharmacy 66.8 ml/min; Est GFR (African American) 65.2 ml/min; Est GFR (Non-African American) 56.2 ml/min; Magnesium 1.7 mg/dl (1.7-2.4); Potassium 3.1 mmol/L (3.5-5.1)
[2021-12-13] MEDS ORDERED: PANTOprazole 40 MG TAB PO SCH (06:30)
[2021-12-13] MEDS ORDERED: LEVOTHYROXINE SODIUM 88 MCG TABLET PO SCH (06:30)
[2021-12-13] MEDS: INSULIN ASPART PER UNIT SC SCH ×2 (07:30→11:56)
[2021-12-13 07:42] LABS: Estimated Average Glucose 154 mg/dl
[2021-12-13] MEDS: VENLAFAXINE HCL XR 75 MG CAPXR PO SCH ×2 (08:56→11:10)
[2021-12-13] MEDS ORDERED: POTASSIUM CHLORIDE PWD 20 MEQ PACK PO ONE (08:56)
[2021-12-13] MEDS: clonazePAM 0.5 MG TAB PO SCH ×2 (08:59→13:31)
[2021-12-13] MEDS ORDERED: ASPIRIN 81 MG ECTAB PO SCH (09:00)
[2021-12-13] MEDS ORDERED: TORSEMIDE 20 MG TAB PO SCH (09:00)
[2021-12-13] MEDS ORDERED: ASCORBIC ACID 500 MG TAB PO SCH (09:00)
[2021-12-13] MEDS ORDERED: METOPROLOL SUCC 50MG EXT REL TAB PO SCH (09:00)
[2021-12-13] MEDS ORDERED: GABAPENTIN 300 MG CAP PO SCH (09:00)
[2021-12-13] MEDS ORDERED: METHENAMINE HIPPURATE 1 GM TAB PO SCH (09:00)
[2021-12-13] MEDS ORDERED: SPIRONOLACTONE 25 MG TAB PO SCH (09:00)
[2021-12-13] MEDS ORDERED: INSULIN GLARGINE SOLOSTAR 100 UNITS/ML 3 ML PEN SQ SCH (09:00)
[2021-12-13] MEDS ORDERED: MoRPHine SULFATE CR 15 MG TABCR PO SCH (09:00)
[2021-12-13] MEDS ORDERED: LACTULOSE SYRUP 20 GM/30 ML UDC PO SCH (09:00)
[2021-12-13] MEDS ORDERED: rifAXIMin 550 MG TABLET PO SCH (09:00)
[2021-12-13] MEDS ORDERED: ATORVASTATIN 40 MG TAB PO SCH (09:00)
[2021-12-13] MEDS ORDERED: lamoTRIgine 100 MG TAB PO SCH (09:00)
[2021-12-13] MEDS ORDERED: VENLAFAXINE HCL XR 150 MG CAPXR PO SCH (09:00)
[2021-12-13] MEDS ORDERED: lamoTRIgine 25 MG TAB PO SCH (09:00)
[2021-12-13] MEDS ORDERED: TAMSULOSIN HCL 0.4 MG CAP PO SCH (09:00)
[2021-12-13] MEDS ORDERED: OXYBUTYNIN CHLORIDE XL 5 MG TABCR PO SCH (09:00)
[2021-12-13] MEDS: LACTULOSE SYRUP 20 GM/30 ML UDC PO SCH ×2 (11:07→11:18)
--- NOTE | 2021-12-13 14:38 | Hospitalist Progress Note ---
Date of Service December 13, 2021 Assessment & Plan (1) Altered mental status: Plan: Resolved, was likely related to delirium from change in location from hospital to home on Friday night. Workup is unremarkable for a medical reason for her confusion, weakness and fatigue all which has improved at this time. Workup included head CT, ammonia, UA, CMP, CBC. She is euvolemic on exam and has no current symptoms. She is tolerating PO and tolerating lactulose. Physical exam is unremarkable. She was evaluated by PT and OT, and during last admission, SNF was recommended. Just spoke with daughter who told me no matter what, she wants to keep her home with current home health in place and we discussed her discharge today. Daughter is good for pickup around 430m today. Close follow- up wtih PCP recommended. (2) Recurrent falls: Plan: Daughter aware of recent concerns by therapy to place her in SNF for rehab. This is not in line with family goals as she would like her home with home health as much as possible. Aware of the risk with falls. 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 Cont current therapy. (4) Anemia: Plan: chronic, stable. No indication for blood transufsion at this time. (5) Weakness: Plan: Generalized weakness without focality. CT head negative. Do not suspect stroke. Likely more related to a delirium experienced when she returned home vs medication side effect. This is improved and OT recommends ok to return home with known caregivers and support that is available to her. (6) Chronic pain syndrome: Plan: narcotic dependent and daughter aware that this may be contributing to recurrent falls. Cont working with PCP or pain specialist as outpatient to minimize this. (7) Kvipzuv-Gdjlr-Yybec disease: Plan: chronic, stable. May be contributing to recurrent falls. (8) Bipolar disorder: Plan: chronic, stable. Cont home medications. (9) Hypothyroidism: Plan: chronic, stable. Cont current therapy. (10) DM type 2 (diabetes mellitus, type 2): Plan: chronic, stbale. Cont current therapy. (11) DVT prophylaxis: Plan: Heparin Full Dispo-to home with Home Health. I spoke with daughter at length on the phone and we reviewed the care plan and our thoughts on what occurred at home after she left. There was likely a component of delirium present from changing locations and daughter agreed wtih this. Daughter expressed wanting to limit her mercy ein the hospital or any rehab setting as much as possible. Discharge set or today. Cristiane Mo DO [facility] Hospitalist Plan: By CMS guidelines, a determination that the admission or continued stay is not medically necessary has been made by a member of the Utilization Review committee and a physician for this hospital stay. Therefore, a Code 44 will be completed and the inpatient admission will be changed to outpatient. dO Chepe Admission and Anticipated Discharge Date Admission Date: December 12, 2021 Subjective 71 yo F presents with concerns with confusion since recent discharge from the hospital. Overnight CT head is negative UA is negative Labs otherwise normal aside from some mild hypokalemia. She has GONZALEZ cirrhosis and CMT at baseline, also has bipolar disorder I called her daughter after concerns from nursing and CM that daughter was frustrated Daughter describes somnolence started Friday evening after returning home from the hospital. Stayed somnolent and weak generally wtih confusion. This was what prompted the visit last night This morning she is oriented and mentating at her baseline. Daughter reports she is clear on the phone. Today she is oriented although reports she feels confused She reports weakness and fatigue and states this has been the way she felt since returning home She is improved. She is tolerating PO and taking Lactulose without issue. Denies any pain or SOB. Review of Systems Review of Systems: All systems were reviewed and negative except as indicated on HPI above. Physical Exam Physical Exam: CONSTITUTIONAL: obese, vitals as above, generally well- appearing, NAD EYES: pupils are round and equal bilaterally, normal conjunctivae, no scleral icterus ENT: external ear and nose normal, oropharynx clear, MMM NECK: trachea midline RESPIRATORY: clear to auscultation bilaterally, with slight crackles at the right base. No rales or wheezes and normal respiratory effort CARDIOVASCULAR: regular rate and rhythm, 3/6 DIMITRIS heard throughout precordium, no gallops or rubs, no JVD, no peripheral edema CHEST: inspection of chest was normal GASTROINTESTINAL: soft, nontender, ND, no guarding, no fluid wave. MUSCULOSKELETAL: strength 5/5 throughout, head is normocephalic and atraumatic was able to ambulate in the room with therapy SKIN: warm and dry NEUROLOGIC: CN 2-12 grossly intact, no sensory deficit, normal cognition, normal speech, no tremor, no asterixis. PSYCHIATRIC: alert cooperative and oriented to person, place and time. Euthymic mood, makes good eye contact, language grossly intact, recent and remote memory grossly intact. Results & Data Results & Data ([facility]) Vital Signs (Past 12 Hours) Vital Signs Temp Pulse Resp BP Pulse Ox 12/13/21 12:00 75 16 125/82 97 12/13/21 07:29 36.8 C 81 20 124/65 96 12/13/21 04:14 37.5 C 80 18 124/68 100 Laboratory Results Short CBC 12/12/21 12/13/21 Range/Units 15:14 05:15 WBC 6.30 7.55 (4.8-10.8) K/uL Hgb 11.3 L 11.3 L (12.0-16.0) g/dL Hct 35.3 L 35.6 L (37-47) % Plt Count 151 134 (130-400) K/uL BMP 12/12/21 12/12/21 12/13/21 15:14 17:13 05:15 Sodium 133 L 132 L Potassium TNP 3.3 L 3.1 L Chloride 96 L 98 Carbon Dioxide 29 25 BUN 8 8 Creatinine 1.14 1.00 Glucose 202 H 103 H Calcium 9.1 8.7 Liver Function 12/12/21 12/12/21 Range/Units 15:14 17:13 Total Bilirubin 0.9 (0.2-1.0) mg/dl AST TNP 51 H ALT 45 (7-52) U/L Alkaline Phosphatase 207 H (34-104) U/L Albumin 3.6 (3.4-5.0) gm/dl Urine 12/12/21 Range/Units 15:14 Urine Color Yellow Urine Appearance Clear (Clear) Urine pH 7.0 (4.5-7.5) Ur Specific [place] 1.006 (1.000-1.030) Urine Protein Negative (Negative) Urine Glucose (UA) Negative (Negative) Medications Administered Current Inpatient Medications Albuterol (Albuterol Hfa 8 Gm Inhaler) 2 puffs INH QID PRN PRN Reason: Shortness Of Breath Or Wheezin Stop: 01/12/22 01:34 Aripiprazole (Aripiprazole 1 Mg/Ml Oral Soln 150 Ml Btl) 2 mg PO HS ANGELLA Stop: 01/12/22 20:59 Ascorbic Acid (Ascorbic Acid 500 Mg Tab) 500 mg PO BID ANGELLA Stop: 01/12/22 08:59 Last Admin: 12/13/21 08:56 Dose: 500 mg Documented by: Aspirin (Aspirin 81 Mg Ectab) 81 mg PO DAILY ANGELLA Stop: 01/12/22 08:59 Last Admin: 12/13/21 08:56 Dose: 81 mg Documented by: Atorvastatin Calcium (Atorvastatin 40 Mg Tab) 40 mg PO QAM [facility] Stop: 01/12/22 08:59 Last Admin: 12/13/21 08:56 Dose: 40 mg Documented by: Clonazepam (Clonazepam 0.5 Mg Tab) 0.5 mg PO TID [facility] Stop: 01/12/22 08:59 Last Admin: 12/13/21 13:31 Dose: 0.5 mg Documented by: Dicyclomine HCl (Dicyclomine Hcl 10 Mg Cap) 10 mg PO QID PRN PRN Reason: Abdominal Pain Stop: 01/12/22 01:34 Last Admin: 12/13/21 08:55 Dose: 10 mg Documented by: Gabapentin (Gabapentin 300 Mg Cap) 300 mg PO BID [facility] Stop: 01/12/22 08:59 Last Admin: 12/13/21 08:56 Dose: 300 mg Documented by: Heparin Sodium (Porcine) (Heparin Sod 5,000 Unit/0.5 Ml Vial) 5,000 units SQ Q8 ANGELLA Stop: 01/12/22 05:59 Last Admin: 12/13/21 13:32 Dose: 5,000 units Documented by: Insulin Aspart (Insulin Aspart Per Unit) 0 units SC ACHS [facility] Stop: 01/12/22 07:29 Last Admin: 12/13/21 11:56 Dose: 3 units Documented by: Insulin Glargine (Insulin Glargine Solostar 100 Units/Ml 3 Ml Pen) 60 units SQ QAM [facility] Stop: 01/12/22 08:59 Last Admin: 12/13/21 09:25 Dose: 60 units Documented by: Lactulose (Lactulose Syrup 20 Gm/30 Ml Udc) 30 gm PO BID [facility] Stop: 01/12/22 09:29 Last Admin: 12/13/21 11:18 Dose: Not Given Documented by: Lamotrigine (Lamotrigine 25 Mg Tab) 75 mg PO DAILY [facility] Stop: 01/12/22 08:59 Last Admin: 12/13/21 09:01 Dose: 75 mg Documented by: Lamotrigine (Lamotrigine 100 Mg Tab) 100 mg PO DAILY [facility] Stop: 01/12/22 08:59 Last Admin: 12/13/21 08:56 Dose: 100 mg Documented by: Levothyroxine Sodium (Levothyroxine Sodium 88 Mcg Tablet) 88 mcg PO DAILYBB [facility] Stop: 01/12/22 06:29 Last Admin: 12/13/21 06:03 Dose: 88 mcg Documented by: Methenamine Hippurate (Methenamine Hippurate 1 Gm Tab) 1 gm PO BID [facility] Stop: 01/12/22 08:59 Last Admin: 12/13/21 08:55 Dose: 1 gm Documented by: Metoprolol Succinate (Metoprolol Succ 50mg Ext Rel Tab) 50 mg PO DAILY [facility] Stop: 01/12/22 08:59 Last Admin: 12/13/21 08:56 Dose: 50 mg Documented by: Miscellaneous (Estradiol 0.01 % Cream: Order Awaiting Action) 1 ea N/A QS [facility] Stop: 01/12/22 07:59 Last Admin: 12/13/21 13:36 Dose: Not Given Documented by: Montelukast Sodium (Montelukast Sodium 10 Mg Tablet) 10 mg PO DAILY@1600 [facility] Stop: 01/12/22 15:59 Morphine Sulfate (Morphine Sulfate Cr 15 Mg Tabcr) 15 mg PO BID [facility] Stop: 12/27/21 08:59 Last Admin: 12/13/21 08:59 Dose: 15 mg Documented by: Nitroglycerin (Nitroglycerin Sl 0.4 Mg/Tab Tab) 0.4 mg SL UD PRN PRN Reason: Chest Pain Stop: 01/12/22 01:34 Ondansetron HCl (Ondansetron 4 Mg Od Tab) 8 mg PO Q8 PRN PRN Reason: Nausea Stop: 01/12/22 01:34 Oxybutynin Chloride (Oxybutynin Chloride Xl 5 Mg Tabcr) 10 mg PO QAM [facility] Stop: 01/12/22 08:59 Last Admin: 12/13/21 08:57 Dose: 10 mg Documented by: Oxycodone HCl (Oxycodone Hcl Ir 5 Mg Tab (Immediate Release)) 5 mg PO Q8 PRN PRN Reason: Outbreak Stop: 12/27/21 01:34 Last Admin: 12/13/21 11:16 Dose: 5 mg Documented by: Pantoprazole Sodium (Pantoprazole 40 Mg Tab) 40 mg PO DAILYBB [facility] Stop: 01/12/22 06:29 Last Admin: 12/13/21 06:03 Dose: 40 mg Documented by: Rifaximin (Rifaximin 550 Mg Tablet) 550 mg PO BID [facility] Stop: 01/12/22 08:59 Last Admin: 12/13/21 11:08 Dose: 550 mg Documented by: Spironolactone (Spironolactone 25 Mg Tab) 50 mg PO BID [facility] Stop: 01/12/22 08:59 Last Admin: 12/13/21 11:08 Dose: 50 mg Documented by: Tamsulosin HCl (Tamsulosin Hcl 0.4 Mg Cap) 0.4 mg PO QAM [facility] Stop: 01/12/22 08:59 Last Admin: 12/13/21 11:08 Dose: 0.4 mg Documented by: Torsemide (Torsemide 20 Mg Tab) 20 mg PO QAM [facility] Stop: 01/12/22 08:59 Last Admin: 12/13/21 08:55 Dose: 20 mg Documented by: Venlafaxine HCl (Venlafaxine Hcl Xr 75 Mg Capxr) 75 mg PO QAM [facility] Stop: 01/12/22 08:59 Last Admin: 12/13/21 08:56 Dose: 75 mg Documented by: Venlafaxine HCl (Venlafaxine Hcl Xr 150 Mg Capxr) [facility] Stop: 01/12/22 08:59 Last Admin: 12/13/21 11:11 Dose: 150 mg Documented by: (1) Anemia Anemia type: unspecified type Qualified Code(s): D64.9 - Anemia, unspecified
--- NOTE | 2021-12-13 15:03 | Discharge Summary ---
Date of Service December 13, 2021 Principal Diagnosis AMS Discharge Exam CONSTITUTIONAL: obese, vitals as above, generally well-appearing, NAD EYES: pupils are round and equal bilaterally, normal conjunctivae, no scleral icterus ENT: external ear and nose normal, oropharynx clear, MMM NECK: trachea midline RESPIRATORY: clear to auscultation bilaterally, with slight crackles at the right base. No rales or wheezes and normal respiratory effort CARDIOVASCULAR: regular rate and rhythm, 3/6 DIMITRIS heard throughout precordium, no gallops or rubs, no JVD, no peripheral edema CHEST: inspection of chest was normal GASTROINTESTINAL: soft, nontender, ND, no guarding, no fluid wave. MUSCULOSKELETAL: strength 5/5 throughout, head is normocephalic and atraumatic was able to ambulate in the room with therapy SKIN: warm and dry NEUROLOGIC: CN 2-12 grossly intact, no sensory deficit, normal cognition, normal speech, no tremor, no asterixis. PSYCHIATRIC: alert cooperative and oriented to person, place and time. Euthymic mood, makes good eye contact, language grossly intact, recent and remote memory grossly intact. 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 Cont current therapy. (2) Recurrent falls: Daughter aware of recent concerns by therapy to place her in SNF for rehab. This is not in line with family goals as she would like her home with home health as much as possible. Aware of the risk with falls. (3) Altered mental status: Resolved, was likely related to delirium from change in location from hospital to home on Friday night. Workup is unremarkable for a medical reason for her confusion, weakness and fatigue all which has improved at this time. Workup included head CT, ammonia, UA, CMP, CBC. She is euvolemic on exam and has no current symptoms. She is tolerating PO and tolerating lactulose. Physical exam is unremarkable. She was evaluated by PT and OT, and during last admission, SNF was recommended. Just spoke with daughter who told me no matter what, she wants to keep her home with current home health in place and we discussed her discharge today. Daughter is good for pickup around 430m today. Close follow-up wt PCP recommended. (4) Anemia: chronic, stable. No indication for blood transufsion at this time. (5) Weakness: Generalized weakness without focality. CT head negative. Do not suspect stroke. Likely more related to a delirium experienced when she returned home vs medication side effect. This is improved and OT recommends ok to return home with known caregivers and support that is available to her. (6) Chronic pain syndrome: narcotic dependent and daughter aware that this may be contributing to re current falls. Cont working with PCP or pain specialist as outpatient to minimize this. (7) Dglibug-Xualh-Cthbx disease: chronic, stable. May be contributing to recurrent falls. (8) Bipolar disorder: chronic, stable. Cont home medications. (9) Hypothyroidism: chronic, stable. Cont current therapy. (10) DM type 2 (diabetes mellitus, type 2): chronic, stbale. Cont current therapy. (11) DVT prophylaxis: Heparin Full Dispo-to home with Home Health. I spoke with daughter at length on the phone and we reviewed the care plan and our thoughts on what occurred at home after sh e left. There was likely a component of delirium present from changing locations and daughter agreed wtih this. Daughter expressed wanting to limit her mercy ein the hospital or any rehab setting as much as possible. Discharge set or today. Cristiane Mo DO [facility] By [facility] guidelines, a determination that the admission or continued stay is not medically necessary has been made by a member of the Utilization Review committee and a physician for this hospital stay. Therefore, a Code 44 will be completed and the inpatient admission will be changed to outpatient. dO Chepe Total Time Total Time Spent Total Time Spent (In Minutes): 60 Discharge Plan Discharge Items Patient Disposition: Home - Home Health Services Reason For Visit: AMS? Discharge Diagnosis: altered mental status/weakness/fatigue Condition on Discharge: Good Activity: Resume your previous activity Non-emergency contact: Primary Care Provider Call non-emergency contact if: you have any medication questions and your symptoms worsen Follow-up/Referrals: Brian Domínguez MD [Primary Care Provider] - Diet: Carb Consistent or DM2 and Heart Healthy Addtl Attending Provider Instructions: It is possible that the confusion at home associated with symptoms of generalized weakness and fatigue may have been related to delirium from changing locations from hospital to home. Current workup for another cause in the hospital has not been found through labwork and imaging studies performed. In an effort to reduce this possibility going home please ensure you keep good day/night cycles. For example, when it is dark go to sleep. When it is daytim e, try to avoid sleep. Please continue to stay hydrated, eat well, use prescribed medications as instructed and take steps to minimize polypharmacy to avoid medication interactions or side effects. It is recommended to continue with the medication changes put in place on discharge last week and follow-up with your primary care provider within one week to review this and check how you are doing after hospital discharge. It was a pleasure taking care of you! Please call if you have any questions or problems. You can reach a [facility] hospitalist on duty at [facility] 24 hours a day by calling [phone]. Take care of yourself. Cristiane Mo, DO [facility] Pending Studies at Discharge: No Stand-Alone Forms: My [facility] Medications and DC Order Prescriptions: Continued levothyroxine 88 mcg tablet 88 mcg PO QAM RF: 0 aripiprazole 2 mg tablet 2 mg PO HS RF: 0 nitroglycerin [Nitrostat] 0.4 mg Tablet, Sublingual 0.4 mg Sublingual DIRECTED PRN (Reason: Chest Pain) RF: 0 albuterol sulfate [Ventolin HFA] 90 mcg/actuation Hfa Aerosol Inhaler 2 puff INHALATION QID PRN (Reason: Shortness Of Breath Or Wheezing) RF: 0 morphine 15 mg Tablet Extended Release 15 mg PO AMHS RF: 0 montelukast 10 mg Tablet 10 mg PO DAILY@1600 RF: 0 insulin glargine [Basaglar KwikPen U-100 Insulin] 100 unit/mL (3 mL) Insulin Pen 60 unit SUBCUT QAM RF: 0 spironolactone [Aldactone] 50 mg tablet 50 mg PO BID RF: 0 venlafaxine 75 mg capsule,extended release 24hr 75 mg PO QAM RF: 0 Xifaxan 550 mg Tablet 550 mg PO BID RF: 0 aspirin 81 mg Tablet,Delayed Release (Dr/Ec) 81 mg PO DAILY RF: 0 pantoprazole 40 mg tablet,delayed release (DR/EC) 40 mg PO DAILYBB RF: 0 oxycodone 5 mg tablet 5 mg PO Q8 PRN (Reason: Outbreak) RF: 0 ergocalciferol (vitamin D2) 1,250 mcg (50,000 unit) capsule 1,250 mcg PO WK RF: 0 oxybutynin chloride 10 mg tablet extended release 24hr 10 mg PO QAM RF: 0 tamsulosin 0.4 mg capsule 0.4 mg PO QAM RF: 0 estradiol 0.01 % (0.1 mg/gram) cream 1 applic VAGINAL HS RF: 0 atorvastatin 40 mg tablet 40 mg PO QAM RF: 0 ondansetron HCl 8 mg tablet 8 mg PO Q8 PRN (Reason: Nausea) RF: 0 dicyclomine 10 mg capsule 10 mg PO QID PRN (Reason: Abdominal Pain) RF: 0 torsemide 20 mg tablet 20 - 40 mg PO QAM RF: 0 ascorbic acid (vitamin C) 500 mg Tablet 500 mg PO BID RF: 0 Trulicity 4.5 mg/0.5 mL pen injector 1.4 mg SUBCUT WK RF: 0 venlafaxine 150 mg capsule,extended release 24hr 150 mg PO QAM RF: 0 gabapentin 300 mg capsule 300 mg PO BID RF: 0 clonazepam 0.5 mg tablet 0.5 mg PO TID RF: 0 lamotrigine 25 mg tablet 75 mg PO DAILY RF: 0 lamotrigine 100 mg tablet 100 mg PO DAILY RF: 0 methenamine hippurate [Hiprex] 1 gram tablet 1 g PO BID RF: 0 metoprolol succinate 50 mg tablet extended release 24 hr 50 mg PO DAILY RF: 0 lactulose 20 gram/30 mL Solution 30 g PO BID RF: 0 Discharge Orders: Discharge Order (Routine); Ordered 12/13/21 Ordered By: Cristiane Mo Admission Data Admit Date/Time: 12/12/21 22:32 Attending Provider: Cristiane Mo Admit Provider: Calderon Heller Primary Care Provider: Brian Domínguez Other Providers: Calderon Heller ; [facility],Home Healthcare Other Interventions: Discharge Summary Assessment (RN) Last Done: 12/13/21 15:01
--- NOTE | 2021-12-13 15:32 | Communication Note ---
Date of Service: December 13, 2021 By CMS guidelines, a determination that the admission or continued stay is not medically necessary has been made by a member of the UR committee and a physi hserrell for this hospital stay, therefore a Code 44 will be completed and the Inpatient admission will be changed to outpatient. Ryan Levy MD Member, Utilization Review Committee
[2021-12-13] MEDS ORDERED: MONTELUKAST SODIUM 10 MG TABLET PO SCH (16:00)
[2021-12-13] MEDS ORDERED: ARIPIprazole 1 MG/ML ORAL SOLN 150 ML BTL PO SCH (21:00)
--- NOTE | 2021-12-13 23:03 | Electrocardiogram Report ---
Test Reason : Blood Pressure : / mmHG Vent. Rate : 074 BPM Atrial Rate : 074 BPM P-R Int : 178 ms QRS Dur : 094 ms QT Int : 392 ms P-R-T Axes : -08 -41 091 degrees QTc Int : 435 ms Poor data quality, interpretation may be adversely affected Normal sinus rhythm Left axis deviation Possible Inferior infarct , age undetermined Nonspecific T wave abnormality Abnormal ECG When compared with ECG of 07-DEC-2021 16:14, No significant change was found Confirmed by Vamshi Landaverde ([id number]) on 12/13/2021 11:02:37 PM Referred By: REFERRED SELF Confirmed By:Vamshi Landaverde
== END 2021-12-13 16:37 | disposition home health service (06) | DRG 948 ==
LOC: ED 13:49 → 1E 22:32 → SUATTDRO 22:32 → INTOOBSV 22:32 → 1E 12-13 00:27

== ENCOUNTER 2022-02-05 02:55 | Inpatient (IN) ==
[2022-02-05] MEDS ORDERED: MoRPHine SULFATE 4 MG/ML 1 ML CARP\\VIAL IV STA ×2 (03:24→05:04)
[2022-02-05] MEDS ORDERED: ONDANSETRON INJ 2 MG/ML 2 ML VIAL IV STA (03:25)
--- NOTE | 2022-02-05 03:28 | Emergency Department Note ---
Impression & Plan Closed hip fracture ADMIT ED Provider Note HPI: The patient is a 71-year-old female who presents to the emergency department with a chief complaint of left hip pain after a fall. Patient states that she attempted to get up out of bed about an hour prior to arrival and she missed her "balance bar". Patient then fell to the ground and had acute left hip pain. Patient was able to contact her daughter who then contacted EMS and patient was transported to the ED for further assessment. On arrival the patient is alert, she is in mild distress secondary to pain at the left hip, she is otherwise hemodynamically stable and saturating well on room air, denies any other focal complaint of pain aside from the left hip. ROS: -MSK: Left hip pain status post fall *10 point review systems was conducted and is otherwise negative unless stated above *Outpatient medications and allergy history reviewed PE: General: Alert, NAD HEENT: Normocephalic, atraumatic Eyes: Extraocular eye movement is intact, no scleral erythema Pulmonary: Clear to auscultation bilaterally, no wheezing Cardio: Regular rate and rhythm GI: Abdomen is soft, nontender : No suprapubic tenderness MSK: Limited range of motion at the left hip secondary to pain, left lower extremity is externally rotated, palpable dorsalis pedis pulses appreciated and range of motion is intact distally in the digits of the left foot Skin: No evidence of rash Neuro: Alert, no focal deficits Psychiatric: Cooperative monitor and storage bin tender: - An order was placed for continuous cardiac monitoring - Patient was noted to be in sinus rhythm with a rate of 65 CT PELVIS: IMPRESSION: Subcapital fracture through the left femoral neck. Femoral head remains well- seated in the acetabulum. Prominent lumbar spondylosis partially visualized. Prominent fecal burden throughout the colon. Radiologist: Kev Nelson M.D. CT LEFT HIP: IMPRESSION: Subcapital fracture through the left femoral neck. Femoral head remains well- seated in the acetabulum. Radiologist: Kev Nelson M.D. Study ready at 04:41 and initial results transmitted at 04:55 Communications: Clear Time Type Notes Call Doctor Trauma CT HEAD: Comparison: CT head 07/09/14 No acute intracranial hemorrhage or mass effect. No skull fracture. Chronic right thalamic infarct. Global cerebral volume loss, progressed from prior. Radiologist: Nir Juarez MD EKG: Rate: 64 Rhythm: Normal sinus rhythm Intervals: Within normal limits ST changes: No ST elevation Time: 0301 Medical Decision Making: Patient presented to the emergency department after a fall at home, fall was mechanical in nature as she lost her balance when she was trying to turn to go to the bathroom and missed her stabilizing bar. On arrival here to the ED the patient has acute left hip pain and she cannot flex at the left hip. CT imaging of the pelvis was obtained that shows show evidence of a subcapital fracture through the left femoral neck. CT imaging of the head shows no acute intracranial process, patient's lab work is otherwise generally reassuring. EKG shows normal sinus rhythm without any ischemic changes or arrhythmia. Patient was given several doses of morphine here in the ED for pain, I discussed the case with the on-call hospitalist for the [facility] [place]note 2[place] service, Dr. Fink, and the patient was admitted in stable condition for further care. Following my discussion with the patient's daughter at the bedside, they request a consult to [facility] orth[facility] and therefore this was placed. Diagnosis: 1. Left hip fracture, closed 2. Mechanical fall 3. Ambulatory dysfunction Disposition: Admission Tony Drake DO Emergency Medicine Past Med/Surg History Medical History Anxiety Bipolar disorder CAD (coronary artery disease) History of multiple PCI's to the RCA with subsequent CABG x1 in 2010 x 1 vessel Most recent cardiac testing-negative DSE in December 2017 Follows w/ Dr. Blackwell and Dr. Lucas [id number] disease follows w/ Dr. Lemus LEG WEAKNESS CURRENT PT/OT FOR - BRACES B/L LEGS Chronic diastolic CHF (congestive heart failure) Chronic pain syndrome Depression DM type 2 (diabetes mellitus, type 2) IDDM Dyslipidemia Encephalopathy d/c from [facility] 09/20/19 (hepatic encephalopathy) Gastroparesis GERD (gastroesophageal reflux disease) History of anesthesia reaction REMOTE HX, SIDE EFFECTS : ANXIETY AND SEVERE N/V History of COVID-19 6-8 MON AGO Hypertension Hypothyroidism Irregular heart beat follows Dr. 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 Moderate aortic stenosis GONZALEZ (nonalcoholic steatohepatitis) Osteoarthritis Portal hypertensive gastropathy SOB (shortness of breath) SINCE COVID 19/ 6-8 MON AGO, SOB, COUGH...NO DX...HAS VISIT WITH PULM UPCOMING TO EVALUATE Spondylosis Urinary incontinence UTI (urinary tract infection) FREQUENT/PREVENTATIVE ABX'S CURRENTLY MOST RECENT UTI JANUARY 04 - ABX COMPLETE - ON CURRENT PROPHYLACTIC TX Surgical History History of appendectomy History of back surgery sacral area History of cardiac cath multiple - most recent - 2 years ago @ [facility] - FOR [facility] History of cataract surgery RT History of colonoscopy History of esophagogastroduodenoscopy (EGD) History of heart artery stent 2 yrs ago @ [facility] > unsure of how many stents > follows Dr. Lucas History of total right knee replacement Hx of cholecystectomy S/P CABG x 1 2010 - single vessel S/P CARLOS (total abdominal hysterectomy) Family History Father Coronary heart disease Brother Coronary heart disease Father No problems noted. Mother No problems noted. Social History Smoking Status: Never smoker Second Hand Exposure: Yes (DAUGHTER SMOKES); Hx Alcohol Use: No Hx Substance Use: No Preferred Language: Divehi Communication Ability: Impaired Graduate Advisor Required: No Beliefs That Will Affect Care: None marital status: / Current Living Situation: Alone How many Children do You have: 0 Feels Safe at Home: Yes Assistive Devices: Bedside Commode, Hospital Bed, Walker and Wheelchair Allergies Allergies Allergy/AdvReac Type Severity Reaction Status Date / Time propoxyphene Allergy Intermediate Rash Verified 02/05/22 03:04 fentanyl AdvReac Intermediate PANIC Verified 02/05/22 03:04 WANTS TO RUN AND AGGRESSIVE methocarbamol AdvReac Intermediate DELERIUM Verified 02/05/22 03:04 zolpidem AdvReac Intermediate confusion Verified 02/05/22 03:04 Home Meds Home Medications Medication Instructions Recorded Confirmed albuterol sulfate 90 mcg/actuation 2 puff inhalation QID PRN 04/27/18 02/05/22 aerosol inhaler (Ventolin HFA) Shortness Of Breath Or Wheezing aripiprazole 2 mg tablet 2 mg PO HS 04/27/18 02/05/22 levothyroxine 88 mcg tablet 88 mcg PO QAM 04/27/18 02/05/22 nitroglycerin 0.4 mg sublingual 0.4 mg sublingual DIRECTED PRN 04/27/18 02/05/22 tablet (Nitrostat) Chest Pain montelukast 10 mg tablet 10 mg PO DAILY@1600 06/11/19 02/05/22 spironolactone 50 mg tablet 50 mg PO BID 09/15/19 02/05/22 (Aldactone) venlafaxine 75 mg capsule,extended 75 mg PO QAM 09/15/19 02/05/22 release 24 hr insulin glargine 100 unit/mL (3 60 unit subcut QAM 12/22/19 02/05/22 mL) subcutaneous pen (Sage Telecomaglar KwikPen U-100 Insulin) morphine 15 mg tablet,extended 15 mg PO BID 01/16/20 02/05/22 release rifaximin 550 mg tablet (Xifaxan) 550 mg PO BID 03/21/20 02/05/22 venlafaxine 150 mg 150 mg PO QAM 01/07/21 02/05/22 capsule,extended release 24 hr aspirin 81 mg tablet,delayed 81 mg PO QAM 01/26/21 02/05/22 release oxycodone 5 mg tablet 5 mg PO Q8H PRN Breakthrough Pain 01/26/21 02/05/22 pantoprazole 40 mg tablet,delayed 40 mg PO DAILYBB 01/26/21 02/05/22 release gabapentin 300 mg capsule 300 mg PO BID 02/26/21 02/05/22 clonazepam 0.5 mg tablet 0.5 mg PO TID 03/23/21 02/05/22 atorvastatin 40 mg tablet 40 mg PO QAM 10/10/21 02/05/22 dicyclomine 10 mg capsule 10 mg PO QID PRN Abdominal Pain 10/10/21 02/05/22 ergocalciferol (vitamin D2) 1,250 1,250 mcg PO WK 10/10/21 02/05/22 mcg (50,000 unit) capsule estradiol 1 applic vaginal HS 10/10/21 02/05/22 ondansetron HCl 8 mg tablet 8 mg PO Q8H PRN Nausea 10/10/21 02/05/22 oxybutynin chloride 10 mg 10 mg PO QAM 10/10/21 02/05/22 tablet,extended release 24 hr tamsulosin 0.4 mg capsule 0.4 mg PO QAM 10/10/21 02/05/22 torsemide 20 mg tablet 20 - 40 mg PO QAM 10/10/21 02/05/22 lamotrigine 100 mg tablet See Rx Instructions .Route .COMPLEX 11/23/21 02/05/22 lamotrigine 25 mg tablet 75 mg PO QAM 11/23/21 02/05/22 methenamine hippurate 1 gram 1 g PO BID 11/23/21 02/05/22 tablet (Hiprex) ascorbic acid (vitamin C) 500 mg 500 mg PO BID 12/07/21 02/05/22 tablet dulaglutide 4.5 mg/0.5 mL 4.5 mg subcut WK 12/07/21 02/05/22 subcutaneous pen injector (TrulicbMenu) lactulose 20 gram/30 mL oral 30 g PO BID 12/12/21 02/05/22 solution metoprolol succinate 50 mg 50 mg PO QAM 12/12/21 02/05/22 tablet,extended release 24 hr ertapenem 1 gram solution for 1 g IV DAILY 02/01/22 02/05/22 injection Results & Data (ED) Vital Signs Vital Signs - 24 hr 02/05/22 03:01 02/05/22 03:24 02/05/22 02:48 Temperature 36.6 C Temperature Source Oral Pulse Rate [Apical] 65 Pulse Rhythm [Apical] Respiratory Rate 19 Respiratory Depth Normal Blood Pressure [Right Arm] 143/62 H Blood Pressure Mean [Right Arm] 89 Pulse Oximetry 90 97 Oxygen Delivery Method Room Air Room Air Oxygen Flow Rate Sepsis Recent Fever Within 48 Hours No Sepsis New/Unexplained Change in Mental Status No Sepsis Action Taken by Nursing No Action Required 02/05/22 05:01 Temperature Temperature Source Pulse Rate [Apical] 74 Pulse Rhythm [Apical] Regular Respiratory Rate 12 Respiratory Depth Blood Pressure [Right Arm] 111/72 Blood Pressure Mean [Right Arm] 85 Pulse Oximetry 98 Oxygen Delivery Method Nasal Cannula Oxygen Flow Rate 3 Sepsis Recent Fever Within 48 Hours Sepsis New/Unexplained Change in Mental Status Sepsis Action Taken by Nursing Laboratory Data Result diagrams: 02/05/22 03:46 02/05/22 03:46 Lab Results 02/05/22 02/05/22 02/05/22 Range/Units 03:18 03:46 03:46 WBC 7.33 (4.8-10.8) K/ul RBC 5.08 (3.93-5.22) M/uL Hgb 12.1 (12.0-16.0) g/dl Hct 39.5 (34.1-44.9) % MCV 77.8 L (80.0-100.0) fL MCH 23.8 L (25.0-34.0) pg MCHC 30.6 L (32.0-36.0) g/dL RDW Std Deviation 50.6 H (36.4-46.3) fL RDW Coeff of Guillermo 18.2 H (11.5-14.5) % Plt Count 139 (130-400) K/uL MPV 10.2 (9.4-12.3) fL Immature Gran % (Auto) 1.5 % Neut % (Auto) 64.7 % Lymph % (Auto) 21.7 % [place] % (Auto) 7.4 % Eos % (Auto) 4.2 % Baso % (Auto) 0.5 % Neut # (Auto) 4.74 (1.4-6.5) K/uL Lymph # (Auto) 1.59 (1.2-3.4) K/uL [place] # (Auto) 0.54 (0.24-0.82) K/uL Eos # (Auto) 0.31 (0-0.50) K/uL Baso # (Auto) 0.04 (0-0.2) K/uL Immature Gran # (Auto) 0.11 H (0.00-0.02) K/uL PT 11.5 (9.0-12.0) Seconds INR 1.1 (0.9-1.1) Sodium (136-145) mmol/L Potassium (3.5-5.1) mmol/L Chloride (98-107) mmol/L Carbon Dioxide (21-32) mmol/L Anion Gap (3-11) BUN (6-23) mg/dl Creatinine (0.6-1.2) mg/dl Est Cr Clr Drug Dosing Est GFR ( Amer) ml/min Est GFR (Non-Af Amer) ml/min BUN/Creatinine Ratio (10-20) Glucose (70-99(Fasting)) mg/dl Calcium (8.5-10.1) mg/dl Total Bilirubin (0.2-1.0) mg/dl AST (13-39) U/L ALT (7-52) U/L Alkaline Phosphatase (34-104) U/L Total Protein (6.0-8.3) gm/dl Albumin (3.4-5.0) gm/dl Globulin (2.5-4.0) gm/dl Albumin/Globulin Ratio (0.9-2) Urine Color Yellow Urine Appearance Clear (Clear) Urine pH 7.5 (4.5-7.5) Ur Specific [place] 1.008 (1.000-1.030) Urine Protein Negative (Negative) Urine Glucose (UA) Negative (Negative) Urine Ketones Negative (Negative) Urine Blood Negative (Negative) Urine Nitrite Negative (Negative) Urine Bilirubin Negative (Negative) Urine Urobilinogen Negative (Negative) Ur Leukocyte Esterase Negative (Negative) SARS-CoV-2, RNA, NAAT (NEGATIVE) 02/05/22 02/05/22 Range/Units 03:46 05:10 WBC (4.8-10.8) K/ul RBC (3.93-5.22) M/uL Hgb (12.0-16.0) g/dl Hct (34.1-44.9) % MCV (80.0-100.0) fL MCH (25.0-34.0) pg MCHC (32.0-36.0) g/dL RDW Std Deviation (36.4-46.3) fL RDW Coeff of Guillermo (11.5-14.5) % Plt Count (130-400) K/uL MPV (9.4-12.3) fL Immature Gran % (Auto) % Neut % (Auto) % Lymph % (Auto) % [place] % (Auto) % Eos % (Auto) % Baso % (Auto) % Neut # (Auto) (1.4-6.5) K/uL Lymph # (Auto) (1.2-3.4) K/uL [place] # (Auto) (0.24-0.82) K/uL Eos # (Auto) (0-0.50) K/uL Baso # (Auto) (0-0.2) K/uL Immature Gran # (Auto) (0.00-0.02) K/uL PT (9.0-12.0) Seconds INR (0.9-1.1) Sodium 133 L (136-145) mmol/L Potassium 3.8 (3.5-5.1) mmol/L Chloride 97 L (98-107) mmol/L Carbon Dioxide 29 (21-32) mmol/L Anion Gap 7 (3-11) BUN 9 (6-23) mg/dl Creatinine 1.03 (0.6-1.2) mg/dl Est Cr Clr Drug Dosing Not Reportable Est GFR ( Amer) 62.9 ml/min Est GFR (Non-Af Amer) 54.3 ml/min BUN/Creatinine Ratio 8.7 L (10-20) Glucose 117 H (70-99(Fasting)) mg/dl Calcium 9.0 (8.5-10.1) mg/dl Total Bilirubin 0.9 (0.2-1.0) mg/dl AST 54 H (13-39) U/L ALT 30 (7-52) U/L Alkaline Phosphatase 219 H (34-104) U/L Total Protein 6.8 (6.0-8.3) gm/dl Albumin 3.7 (3.4-5.0) gm/dl Globulin 3.1 (2.5-4.0) gm/dl Albumin/Globulin Ratio 1.2 (0.9-2) Urine Color Urine Appearance (Clear) Urine pH (4.5-7.5) Ur Specific [place] (1.000-1.030) Urine Protein (Negative) Urine Glucose (UA) (Negative) Urine Ketones (Negative) Urine Blood (Negative) Urine Nitrite (Negative) Urine Bilirubin (Negative) Urine Urobilinogen (Negative) Ur Leukocyte Esterase (Negative) SARS-CoV-2, RNA, NAAT NEGATIVE (NEGATIVE) Administered Medications Discontinued Medications Morphine Sulfate (Morphine Sulfate 4 Mg/Ml 1 Ml Carp\\Vial) 4 mg IV NOW STA Stop: 02/05/22 03:25 Last Admin: 02/05/22 03:45 Dose: 4 mg Documented By: EMB Morphine Sulfate (Morphine Sulfate 4 Mg/Ml 1 Ml Carp\\Vial) 4 mg IV NOW STA Stop: 02/05/22 05:05 Last Admin: 02/05/22 05:09 Dose: 4 mg Documented By: STEVE Ondansetron HCl (Ondansetron Inj 2 Mg/Ml 2 Ml Vial) 4 mg IV NOW STA Stop: 02/05/22 03:26 Last Admin: 02/05/22 03:44 Dose: 4 mg Documented By: STEVE Discharge Plan Visit Data Chief Complaint: Fall Stated Complaint: Fall, UTI, Confusion, Weakness ED Provider: Tony Drake Discharge Problem: Closed hip fracture Patient Disposition: Still a Patient Forms Stand Alone Forms: My [facility] Prescriptions Prescriptions: No Action levothyroxine 88 mcg tablet 88 mcg PO QAM Rx Instructions: TAKE THIS MEDICATION 30 MINUTES BEFORE BREAKFAST OR ANY OTHER MEDICATIONS aripiprazole 2 mg tablet 2 mg PO HS nitroglycerin [Nitrostat] 0.4 mg Tablet, Sublingual 0.4 mg Sublingual DIRECTED PRN (Reason: Chest Pain) Rx Instructions: PLACE ONE TABLET UNDER THE TONGUE EVERY 5 MINUTES FOR UP TO 3 TABLETS OVER 15 MINUTES IF NEEDED FOR CHEST PAIN albuterol sulfate [Ventolin HFA] 90 mcg/actuation Hfa Aerosol Inhaler 2 puff INHALATION QID PRN (Reason: Shortness Of Breath Or Wheezing) morphine 15 mg Tablet Extended Release 15 mg PO BID Rx Instructions: take every 12 hours montelukast 10 mg Tablet 10 mg PO DAILY@1600 insulin glargine [Basaglar KwikPen U-100 Insulin] 100 unit/mL (3 mL) Insulin Pen 60 unit SUBCUT QAM spironolactone [Aldactone] 50 mg tablet 50 mg PO BID venlafaxine 75 mg capsule,extended release 24hr 75 mg PO QAM Rx Instructions: Take with the 150mg dose for a total dosage of 225mg Xifaxan 550 mg Tablet 550 mg PO BID aspirin 81 mg Tablet,Delayed Release (Dr/Ec) 81 mg PO QAM pantoprazole 40 mg tablet,delayed release (DR/EC) 40 mg PO DAILYBB Label Comments: BEFORE BREAKFAST oxycodone 5 mg tablet 5 mg PO Q8H PRN (Reason: Breakthrough Pain) ergocalciferol (vitamin D2) 1,250 mcg (50,000 unit) capsule 1,250 mcg PO WK Label Comments: THURSDAYS Rx Instructions: oxybutynin chloride 10 mg tablet extended release 24hr 10 mg PO QAM tamsulosin 0.4 mg capsule 0.4 mg PO QAM estradiol 0.01 % (0.1 mg/gram) cream 1 applic VAGINAL HS Rx Instructions: Periurethral atorvastatin 40 mg tablet 40 mg PO QAM ondansetron HCl 8 mg tablet 8 mg PO Q8H PRN (Reason: Nausea) dicyclomine 10 mg capsule 10 mg PO QID PRN (Reason: Abdominal Pain) torsemide 20 mg tablet 20 - 40 mg PO QAM Rx Instructions: may take additional tablet as needed for swelling (VERIFIED PAT CALL 01/10/22) ascorbic acid (vitamin C) 500 mg Tablet 500 mg PO BID Trulicity 4.5 mg/0.5 mL pen injector 4.5 mg SUBCUT WK Label Comments: MONDAYS Rx Instructions: Friday venlafaxine 150 mg capsule,extended release 24hr 150 mg PO QAM Rx Instructions: Take with the 25mg dose for a total dosage of 225mg gabapentin 300 mg capsule 300 mg PO BID clonazepam 0.5 mg tablet 0.5 mg PO TID lamotrigine 25 mg tablet 75 mg PO QAM Rx Instructions: TOTAL DOSE 175 MG--TAKES WITH 100 MG TAB. lamotrigine 100 mg tablet See Rx Instructions .ROUTE .COMPLEX Rx Instructions: 100 mg orally; TAKES 175 MG QAM--TAKES WITH 3-25 MG TABS. THEN TAKES 150 MG QPM--TAKES 1 1/2 TABS. methenamine hippurate [Hiprex] 1 gram tablet 1 g PO BID metoprolol succinate 50 mg tablet extended release 24 hr 50 mg PO QAM lactulose 20 gram/30 mL Solution 30 g PO BID ertapenem 1 gram recon soln 1 g IV DAILY Referrals Referrals: Brian Domínguez MD [Primary Care Provider] -
[2022-02-05 03:34] LABS: Appearance Urine Clear (Clear); Bilirubin Urine Negative (Negative); Blood Urine Negative (Negative); Color Urine Yellow; Glucose Urine UA Negative (Negative); Ketones Urine Negative (Negative); Leukocyte Esterase Urine Negative (Negative); Nitrite Urine Negative (Negative); Protein Urine Negative (Negative); Specific Gravity Urine 1.008 (1.000-1.030); Urobilinogen Urine Negative (Negative); pH Urine 7.5 (4.5-7.5)
[2022-02-05 04:03] LABS: Basophils # (auto) 0.04 K/uL (0-0.2); Basophils % (auto) 0.5 %; Eosinophils # (auto) 0.31 K/uL (0-0.50); Eosinophils % (auto) 4.2 %; Hematocrit (blood only) 39.5 % (34.1-44.9); Hemoglobin 12.1 g/dl (12.0-16.0); Immature Granulocytes # (auto) 0.11 K/uL (0.00-0.02); Immature Granulocytes % (auto) 1.5 %; Lymphocytes # (auto) 1.59 K/uL (1.2-3.4); Lymphocytes % (auto) 21.7 %; Mean Corpuscular Hemoglobin 23.8 pg (25.0-34.0); Mean Corpuscular Hgb Conc 30.6 g/dL (32.0-36.0); Mean Corpuscular Volume 77.8 fL (80.0-100.0); Mean Platelet Volume 10.2 fL (9.4-12.3); Monocytes # (auto) 0.54 K/uL (0.24-0.82); Monocytes % (auto) 7.4 %; Neutrophils # (auto) 4.74 K/uL (1.4-6.5); Neutrophils % (auto) 64.7 %; Platelet Count 139 K/uL (130-400); RDW Coefficient of Variation 18.2 % (11.5-14.5); RDW Standard Deviation 50.6 fL (36.4-46.3); Red Blood Count 5.08 M/uL (3.93-5.22); White Blood Count 7.33 K/ul (4.8-10.8)
[2022-02-05 04:22] LABS: INR 1.1 (0.9-1.1); Prothrombin Time 11.5 Seconds (9.0-12.0)
[2022-02-05 04:29] LABS: Alanine Aminotransferase 30 U/L (7-52); Albumin Globulin Ratio 1.2 (0.9-2); Albumin Level 3.7 gm/dl (3.4-5.0); Alkaline Phosphatase 219 U/L (34-104); Anion Gap 7 (3-11); Aspartate Aminotransferase 54 U/L (13-39); BUN Creatinine Ratio 8.7 (10-20); Bilirubin,Total 0.9 mg/dl (0.2-1.0); Blood Urea Nitrogen 9 mg/dl (6-23); Carbon Dioxide 29 mmol/L (21-32); Chloride 97 mmol/L (98-107); Est GFR (African American) 62.9 ml/min; Est GFR (Non-African American) 54.3 ml/min; Globulin 3.1 gm/dl (2.5-4.0); Glucose 117 mg/dl (70-99(Fasting)); Potassium 3.8 mmol/L (3.5-5.1); Sodium 133 mmol/L (136-145); Total Protein 6.8 gm/dl (6.0-8.3)
--- NOTE | 2022-02-05 05:28 | History & Physical Report ---
Date of Service February 05, 2022 Assessment & Plan (1) Hip fracture, left: Plan: Secondary to fall History ambulatory dysfunction/Jfuuerc-Lzjng-Zllnd disease Patient predisposed by lethargy secondary to multiple neuropsychotropic and narcotic medications Rule out hepatic encephalopathy as contributory factor to lethargy history NAFLD cirrhosis chronic diastolic heart failure (EF 55 to 59%, TTE 09/2021), patient euvolemic hx CAD status post CABG/stent Moderate hypertension, stable hyperlipidemia, on statin Rx bipolar disorder/OCD, at baseline DM2 insulin requiring, well-controlled as of recent hemoglobin A1c of 11 December 2021 chronic hyponatremia history ESBL E. coli UTI ongoing Ertapenem Rx past history DVT as per records Medical telemetry given episodic lethargy and cardiac history Check ammonia level, facilitate lactulose and rifaximin Appropriate to hold narcotics/neuropsychotropic meds for sedation confusion Orthopedics consult Re: Left hip fracture ([facility] as per family's request.) N.p.o. until patient seen by orthopedics. Recommend Cardiology preop eval given RCRI of at least 3 points (Class IV risk) if surgery recommended and patient/family agreeable to procedural risks. Basal insulin adjusted for n.p.o. status, ISS BG goal 1 10-1 40 DVT prophylaxis. SCDs Re: Possible procedure Full code Patient requests for her daughters to be updated of plan of care. Ms. Carolyn Burciaga, contact #[phone] Ms. Santoyo JonesChevymiri, contact #[phone]. Text document was generated using [employer] voice recognition software. It may contain grammatical or spelling errors. Kindly contact undersigned for clarification of any documentation item in question. History of Present Illness Chief Complaint: Fall, left hip pain Primary Care Provider: Brian Domínguez MD History obtained from patient and records. Medical history significant for chronic diastolic heart failure (EF 55 to 59%, TTE 09/2021), CAD status post CABG/stent, moderate , hypertension, hyperlipidemia, bipolar disorder/OCD, DM2 insulin requiring, chr onic pain on narcotics, Ypvwhhz-Uycmd-Lgchd disorder, cirrhosis secondary to NAFLD, chronic hyponatremia, history of MRSA/VRE, history ESBL E. coli UTI ongoing ertapenem Rx, history DVT as per records Last confinement December 2021 for altered mental status and recurrent falls. 2 ER visits in the last 2 weeks for abdominal pain/nausea, vomiting. Outpatient urine CS grew ESBL E. coli. Patient started on Ertapenem course few days ago. Patient fell at home last night. Syncope, no chest pain, no SOB. Patient prone to falling. Admits to being sleepy. Patient fell on her left side. Achy left hip pain. Unable to get up. Patient brought to the ER for evaluation. MEDICAL HISTORY: As above. SURGERIES: CABG, cholecystectomy, appendectomy, back surgery, hysterectomy, knee surgery, CARLOS FAMILY HISTORY: Family history of heart disease, alcoholism PERSONAL AND SOCIAL HISTORY: Nonsmoker, no chronic intake of alcoholic beverages, disabled. Allergies Allergy/AdvReac Type Severity Reaction Status Date / Time propoxyphene Allergy Intermediate Rash Verified 02/05/22 03:04 fentanyl AdvReac Intermediate PANIC Verified 02/05/22 03:04 WANTS TO RUN AND AGGRESSIVE methocarbamol AdvReac Intermediate DELERIUM Verified 02/05/22 03:04 zolpidem AdvReac Intermediate confusion Verified 02/05/22 03:04 Home Medications Medication Instructions Recorded Confirmed Type albuterol sulfate 90 mcg/actuation 2 puff inhalation QID PRN 04/27/18 02/05/22 History aerosol inhaler (Ventolin HFA) Shortness Of Breath Or Wheezing aripiprazole 2 mg tablet 2 mg PO HS 04/27/18 02/05/22 History levothyroxine 88 mcg tablet 88 mcg PO QAM 04/27/18 02/05/22 History nitroglycerin 0.4 mg sublingual 0.4 mg sublingual DIRECTED PRN 04/27/18 02/05/22 History tablet (Nitrostat) Chest Pain montelukast 10 mg tablet 10 mg PO DAILY@1600 06/11/19 02/05/22 History spironolactone 50 mg tablet 50 mg PO BID 09/15/19 02/05/22 History (Aldactone) venlafaxine 75 mg capsule,extended 75 mg PO QAM 09/15/19 02/05/22 History release 24 hr insulin glargine 100 unit/mL (3 60 unit subcut QAM 12/22/19 02/05/22 History mL) subcutaneous pen (Carmita Cross U-100 Insulin) morphine 15 mg tablet,extended 15 mg PO BID 01/16/20 02/05/22 History release rifaximin 550 mg tablet (Xifaxan) 550 mg PO BID 03/21/20 02/05/22 History venlafaxine 150 mg 150 mg PO QAM 01/07/21 02/05/22 History capsule,extended release 24 hr aspirin 81 mg tablet,delayed 81 mg PO QAM 01/26/21 02/05/22 History release oxycodone 5 mg tablet 5 mg PO Q8H PRN Breakthrough Pain 01/26/21 02/05/22 History pantoprazole 40 mg tablet,delayed 40 mg PO DAILYBB 01/26/21 02/05/22 History release gabapentin 300 mg capsule 300 mg PO BID 02/26/21 02/05/22 History clonazepam 0.5 mg tablet 0.5 mg PO TID 03/23/21 02/05/22 History atorvastatin 40 mg tablet 40 mg PO QAM 10/10/21 02/05/22 History dicyclomine 10 mg capsule 10 mg PO QID PRN Abdominal Pain 10/10/21 02/05/22 History ergocalciferol (vitamin D2) 1,250 1,250 mcg PO WK 10/10/21 02/05/22 History mcg (50,000 unit) capsule estradiol 1 applic vaginal HS 10/10/21 02/05/22 History ondansetron HCl 8 mg tablet 8 mg PO Q8H PRN Nausea 10/10/21 02/05/22 History oxybutynin chloride 10 mg 10 mg PO QAM 10/10/21 02/05/22 History tablet,extended release 24 hr tamsulosin 0.4 mg capsule 0.4 mg PO QAM 10/10/21 02/05/22 History torsemide 20 mg tablet 20 - 40 mg PO QAM 10/10/21 02/05/22 History lamotrigine 100 mg tablet See Rx Instructions .Route .COMPLEX 11/23/21 02/05/22 History lamotrigine 25 mg tablet 75 mg PO QAM 11/23/21 02/05/22 History methenamine hippurate 1 gram 1 g PO BID 11/23/21 02/05/22 History tablet (Hiprex) ascorbic acid (vitamin C) 500 mg 500 mg PO BID 12/07/21 02/05/22 History tablet dulaglutide 4.5 mg/0.5 mL 4.5 mg subcut WK 12/07/21 02/05/22 History subcutaneous pen injector (Trulicity) lactulose 20 gram/30 mL oral 30 g PO BID 12/12/21 02/05/22 History solution metoprolol succinate 50 mg 50 mg PO QAM 12/12/21 02/05/22 History tablet,extended release 24 hr ertapenem 1 gram solution for 1 g IV DAILY 02/01/22 02/05/22 History injection Past Med/Surg History Medical History Anxiety Bipolar disorder CAD (coronary artery disease) History of multiple PCI's to the RCA with subsequent CABG x1 in 2010 x 1 vessel Most recent cardiac testing-negative DSE in December 2017 Follows w/ Dr. Blackwell and Dr. Lucas Tzfffto-Kirlq-Tahds disease follows w/ Dr. Lemus LEG WEAKNESS CURRENT PT/OT FOR - BRACES B/L LEGS Chronic diastolic CHF (congestive heart failure) Chronic pain syndrome Depression DM type 2 (diabetes mellitus, type 2) IDDM Dyslipidemia Encephalopathy d/c from [facility] 09/20/19 (hepatic encephalopathy) Gastroparesis GERD (gastroesophageal reflux disease) History of anesthesia reaction REMOTE HX, SIDE EFFECTS : ANXIETY AND SEVERE N/V History of COVID-19 6-8 MON AGO Hypertension Hypothyroidism Irregular heart beat follows Dr. 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 Moderate aortic stenosis GONZALEZ (nonalcoholic steatohepatitis) Osteoarthritis Portal hypertensive gastropathy SOB (shortness of breath) SINCE COVID 6-8 MON AGO, SOB, COUGH...NO DX...HAS VISIT WITH PULM UPCOMING TO EVALUATE Spondylosis Urinary incontinence UTI (urinary tract infection) FREQUENT/PREVENTATIVE ABX'S CURRENTLY MOST RECENT UTI JANUARY 04 - ABX COMPLETE - ON CURRENT PROPHYLACTIC TX Surgical History History of appendectomy History of back surgery sacral area History of cardiac cath multiple - most recent - 2 years ago @ [facility] History of cataract surgery RT History of colonoscopy History of esophagogastroduodenoscopy (EGD) History of heart artery stent 2 yrs ago @ [facility] > unsure of how many stents > follows Dr. Lucas History of total right knee replacement Hx of cholecystectomy S/P CABG x 1 2011 - single vessel S/P CARLOS (total abdominal hysterectomy) Family History Father Coronary heart disease Brother Coronary heart disease Father No problems noted. Mother No problems noted. Social History Smoking Status: Never smoker Second Hand Exposure: Yes (DAUGHTER SMOKES); Hx Alcohol Use: No Hx Substance Use: No Preferred Language: Romansh Communication Ability: Impaired Regulatory Coordinator Required: No Beliefs That Will Affect Care: None marital status: / Current Living Situation: Alone How many Children do You have: 0 Feels Safe at Home: Yes Assistive Devices: Bedside Commode, Hospital Bed, Walker and Wheelchair Review of Systems Review of Systems: As per HPI, all other systems reviewed and negative Physical Exam Physical Exam: GENERAL: Slightly uncomfortable, morbidly obese, episodic lethargy, no respiratory distress SKIN: Normal color, warm HEENT: Hoskins palpebral conjunctivae, no ptosis, dry buccal mucosa NECK : Supple, short neck, no tenderness CHEST : Decreased breath sounds, no tenderness HEART : RRR, systolic murmur ABDOMEN: Some distention, nontender EXTREMITIES : Minimal LE swelling, left hip tenderness, no other conspicuous deformities noted NEUROLOGIC : Coherent, episodic lethargy, oriented to year, no facial asymmetry, gait and stance not assessed Results & Data Results & Data ([facility]) Vital Signs (Past 12 Hours) Vital Signs Temp Pulse Resp BP Pulse Ox O2 Del Method 02/05/22 03:24 97 Room Air 02/05/22 03:01 36.6 C 65 19 143/62 H 90 Room Air Laboratory Results Laboratory Results WBC 7.33 K/ul (4.8-10.8) 02/05/22 03:46 RBC 5.08 M/uL (3.93-5.22) 02/05/22 03:46 Hgb 12.1 g/dl (12.0-16.0) 02/05/22 03:46 Hct 39.5 % (34.1-44.9) 02/05/22 03:46 MCV 77.8 fL (80.0-100.0) L 02/05/22 03:46 MCH 23.8 pg (25.0-34.0) L 02/05/22 03:46 MCHC 30.6 g/dL (32.0-36.0) L 02/05/22 03:46 RDW Std Deviation 50.6 fL (36.4-46.3) H 02/05/22 03:46 RDW Coeff of Guillermo 18.2 % (11.5-14.5) H 02/05/22 03:46 Plt Count 139 K/uL (130-400) 02/05/22 03:46 MPV 10.2 fL (9.4-12.3) 02/05/22 03:46 Immature Gran % (Auto) 1.5 % 02/05/22 03:46 Neut % (Auto) 64.7 % 02/05/22 03:46 Lymph % (Auto) 21.7 % 02/05/22 03:46 [facility] % (Auto) 7.4 % 02/05/22 03:46 Eos % (Auto) 4.2 % 02/05/22 03:46 Baso % (Auto) 0.5 % 02/05/22 03:46 Neut # (Auto) 4.74 K/uL (1.4-6.5) 02/05/22 03:46 Lymph # (Auto) 1.59 K/uL (1.2-3.4) 02/05/22 03:46 [facility] # (Auto) 0.54 K/uL (0.24-0.82) 02/05/22 03:46 Eos # (Auto) 0.31 K/uL (0-0.50) 02/05/22 03:46 Baso # (Auto) 0.04 K/uL (0-0.2) 02/05/22 03:46 Immature Gran # (Auto) 0.11 K/uL (0.00-0.02) H 02/05/22 03:46 PT 11.5 Seconds (9.0-12.0) 02/05/22 03:46 INR 1.1 (0.9-1.1) 02/05/22 03:46 Sodium 133 mmol/L (136-145) L 02/05/22 03:46 Potassium 3.8 mmol/L (3.5-5.1) 02/05/22 03:46 Chloride 97 mmol/L (98-107) L 02/05/22 03:46 Carbon Dioxide 29 mmol/L (21-32) 02/05/22 03:46 Anion Gap 7 (3-11) 02/05/22 03:46 BUN 9 mg/dl (6-23) 02/05/22 03:46 Creatinine 1.03 mg/dl (0.6-1.2) 02/05/22 03:46 Est Cr Clr Drug Dosing Not Reportable 02/05/22 03:46 Est GFR ( Amer) 62.9 ml/min 02/05/22 03:46 Est GFR (Non-Af Amer) 54.3 ml/min 02/05/22 03:46 BUN/Creatinine Ratio 8.7 (10-20) L 02/05/22 03:46 Glucose 117 mg/dl (70-99(Fasting)) H 02/05/22 03:46 Calcium 9.0 mg/dl (8.5-10.1) 02/05/22 03:46 Total Bilirubin 0.9 mg/dl (0.2-1.0) 02/05/22 03:46 AST 54 U/L (13-39) H 02/05/22 03:46 ALT 30 U/L (7-52) 02/05/22 03:46 Alkaline Phosphatase 219 U/L (34-104) H 02/05/22 03:46 Total Protein 6.8 gm/dl (6.0-8.3) 02/05/22 03:46 Albumin 3.7 gm/dl (3.4-5.0) 02/05/22 03:46 Globulin 3.1 gm/dl (2.5-4.0) 02/05/22 03:46 Albumin/Globulin Ratio 1.2 (0.9-2) 02/05/22 03:46 Urine Color Yellow 02/05/22 03:18 Urine Appearance Clear (Clear) 02/05/22 03:18 Urine pH 7.5 (4.5-7.5) 02/05/22 03:18 Ur Specific [place] 1.008 (1.000-1.030) 02/05/22 03:18 Urine Protein Negative (Negative) 02/05/22 03:18 Urine Glucose (UA) Negative (Negative) 02/05/22 03:18 Urine Ketones Negative (Negative) 02/05/22 03:18 Urine Blood Negative (Negative) 02/05/22 03:18 Urine Nitrite Negative (Negative) 02/05/22 03:18 Urine Bilirubin Negative (Negative) 02/05/22 03:18 Urine Urobilinogen Negative (Negative) 02/05/22 03:18 Ur Leukocyte Esterase Negative (Negative) 02/05/22 03:18 SARS-CoV-2, RNA, NAAT NEGATIVE (NEGATIVE) 02/05/22 05:[address] head initial read: No acute intracranial hemorrhage or mass effect. No skull fracture. Chronic right thalamic infarct. Global cerebral volume loss, progressed fromprior. CT abdomen pelvis initial read: Subcapital fracture through the left femoral neck. Femoral head remainswell- seated in the acetabulum. Prominent lumbar spondylosis partiallyvisualized. Prominent fecal burden throughout the colon. CT left hip initial read: Subcapital fracture through the left femoral neck. Femoral head remainswell- seated in the acetabulum. Chest x-ray as interpretation elevated right hemidiaphragm, no congestion EKG as per my interpretation : Rate 65, NSR, LAD, LAFB, inferior infarct, T wave flattening septal leads
[2022-02-05] MEDS ORDERED: KETOROLAC TROMETHAMINE 15 MG/ML VIAL IV ONE (06:00)
[2022-02-05] MEDS ORDERED: SODIUM CHLORIDE 0.9% 1000ML 1,000 ML IV ONE (06:15)
--- NOTE | 2022-02-05 06:49 | XRay Report ---
XR chest 1V portable CLINICAL HISTORY: fall COMPARISON STUDY: Chest radiograph January 31, 2022. FINDINGS: There is mild elevation of the right hemidiaphragm, unchanged. Median sternotomy wires are noted. Cardiomediastinal silhouette is stable. No evidence for pulmonary edema. No pneumothorax or pl eural effusion. No consolidation to suggest pneumonia. IMPRESSION: No acute cardiopulmonary findings. No change in appearance of the chest. ACT 112: Negative or not required by law. Electronically signed by: Mu Bonds M.D. 02/05/2022 6:48 AM
--- NOTE | 2022-02-05 07:32 | CT Scan Report ---
CT pelvis wo con CLINICAL HISTORY: fall COMPARISON STUDY: CT of the abdomen and pelvis January 23, 2022. TECHNIQUE: Axial images of the pelvis were obtained without IV contrast. Sagittal and coronal reconst ructions were viewed. Automated exposure control was utilized for the study. A dose lowering techniq ue was utilized adhering to the principles of ALARA. FINDINGS: Bladder is distended. Moderate stool within visualized portions of the colon is noted. Note is made of an acute displaced subcapital left femoral fracture. This is new since CT of January 23 2. Fracture is displaced approximately 2 cm. No additional acute fractures are identified on this exa mination. There is no proximal right femoral fracture. Sacroiliac joints and symphysis pubis are inta ct. Multilevel degenerative changes within visualized portions of the lumbar spine are noted with pos terior decompression within the lower lumbar spine. IMPRESSION: Acute displaced subcapital left femoral fracture. ACT 112: Negative or not required by law. Electronically signed by: Mu Bonds M.D. 02/05/2022 7:30 AM
--- NOTE | 2022-02-05 07:33 | CT Scan Report ---
HEAD CT NONCONTRAST CT DOSE: 580.48 mGy.cm HISTORY: Fall. Head injury. Trauma TECHNIQUE: Multiaxial CT images of the head were performed without the use of intravenous contrast. A utomated exposure control was utilized for this study. A dose lowering technique was utilized adheri ng to the principles of ALARA. Comparison: Head CT 12/12/2021. Findings: The paranasal sinuses and mastoid air cells are clear. The calvarium and skull base are int act. There is no mass, hematoma, midline shift, acute infarct. White matter hypodensity is nonspecifi c but suggestive of microvascular ischemic change. The ventricles and sulci demonstrate mild age-rela tere involutional changes. 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 Impression: No significant change compared to the prior study. No acute intracranial abnormality. ACT 112: Negative or not required by law. Electronically signed by: Marquez Lindsay M.D. 02/05/2022 7:31 AM
--- NOTE | 2022-02-05 07:46 | CT Scan Report ---
LEFT HIP CT CT DOSE: HISTORY: Left hip pain. fall TECHNIQUE: Multiaxial CT images of the left hip were performed and reformatted in the sagittal and co clari plane without the use of contrast. A dose lowering technique was utilized adhering to the prin ciples of MELCHOR. COMPARISON: None. FINDINGS: There is an acute mildly displaced and slightly impacted subcapital left femoral neck fract ure. This demonstrates posterior angulation and mild superior and anterior displacement. No dislocati on. The left pelvic bones appear intact. IMPRESSION: Mildly displaced left subcapital femoral neck fracture. No dislocation. ACT 112: Negative or not required by law. Electronically signed by: Marquez Lindsay M.D. 02/05/2022 7:45 AM
[2022-02-05] MEDS: MoRPHine SULFATE 4 MG/ML 1 ML CARP\\VIAL IV PRN (08:21)
[2022-02-05] MEDS ORDERED: ERTAPENEM SODIUM 10 ML IV ONE (09:00)
--- NOTE | 2022-02-05 09:02 | Orthopedic Consultation ---
Date of Consultation February 05, 2022 Assessment & Plan (1) Hip fracture, left: Evaluated patient She is n.p.o. Her last meal was late last evening. Discussed surgical intervention with the patient. She would like to proceed with a left hip hemiarthroplasty. I advised her that her surgeon is Dr. Barney Rooney and he will plan on doing the surgery later this afternoon. Informed consent to perform the procedure was obtained from the patient. Preoperative orders were placed Patient will be admitted by hospitalist service. Patient verbalized understanding of all information. She thanked us for the care that we are planning to provide her today. History of Present Illness Reason for Consultation: Left hip fracture Attending Physician: Dr. Ivan Cha History of Present Illness This 71-year-old female seen today in the emergency department after sustaining a left hip fracture earlier this morning when she fell attempting to use her bathroom. Patient states that she lives alone in [place]. She states that she regularly uses a walker. She states that she has significant pain over the anterolateral aspect of her left hip and was unable to bear weight on it after sustaining a fall. Currently she denies chest pain, shortness of breath, fever, chills, sweats, lethargy or numbness or tingling in her left lower extremity. However, she is unable to move the extremity due to pain. Allergies Allergy/AdvReac Type Severity Reaction Status Date / Time propoxyphene Allergy Intermediate Rash Verified 02/05/22 03:04 fentanyl AdvReac Intermediate PANIC Verified 02/05/22 03:04 WANTS TO RUN AND AGGRESSIVE methocarbamol AdvReac Intermediate DELERIUM Verified 02/05/22 03:04 zolpidem AdvReac Intermediate confusion Verified 02/05/22 03:04 Home Medications Medication Instructions Recorded Confirmed Type albuterol sulfate 90 mcg/actuation 2 puff inhalation QID PRN 04/27/18 02/05/22 History aerosol inhaler (Ventolin HFA) Shortness Of Breath Or Wheezing aripiprazole 2 mg tablet 2 mg PO HS 04/27/18 02/05/22 History levothyroxine 88 mcg tablet 88 mcg PO QAM 04/27/18 02/05/22 History nitroglycerin 0.4 mg sublingual 0.4 mg sublingual DIRECTED PRN 04/27/18 02/05/22 History tablet (Nitrostat) Chest Pain montelukast 10 mg tablet 10 mg PO DAILY@1600 06/11/19 02/05/22 History spironolactone 50 mg tablet 50 mg PO BID 09/15/19 02/05/22 History (Aldactone) venlafaxine 75 mg capsule,extended 75 mg PO QAM 09/15/19 02/05/22 History release 24 hr insulin glargine 100 unit/mL (3 60 unit subcut QAM 12/22/19 02/05/22 History mL) subcutaneous pen (Basaglar KwikPen U-100 Insulin) morphine 15 mg tablet,extended 15 mg PO BID 01/16/20 02/05/22 History release rifaximin 550 mg tablet (Xifaxan) 550 mg PO BID 03/21/20 02/05/22 History venlafaxine 150 mg 150 mg PO QAM 01/07/21 02/05/22 History capsule,extended release 24 hr aspirin 81 mg tablet,delayed 81 mg PO QAM 01/26/21 02/05/22 History release oxycodone 5 mg tablet 5 mg PO Q8H PRN Breakthrough Pain 01/26/21 02/05/22 History pantoprazole 40 mg tablet,delayed 40 mg PO DAILYBB 01/26/21 02/05/22 History release gabapentin 300 mg capsule 300 mg PO BID 02/26/21 02/05/22 History clonazepam 0.5 mg tablet 0.5 mg PO TID 03/23/21 02/05/22 History atorvastatin 40 mg tablet 40 mg PO QAM 10/10/21 02/05/22 History dicyclomine 10 mg capsule 10 mg PO QID PRN Abdominal Pain 10/10/21 02/05/22 History ergocalciferol (vitamin D2) 1,250 1,250 mcg PO WK 10/10/21 02/05/22 History mcg (50,000 unit) capsule estradiol 1 applic vaginal HS 10/10/21 02/05/22 History ondansetron HCl 8 mg tablet 8 mg PO Q8H PRN Nausea 10/10/21 02/05/22 History oxybutynin chloride 10 mg 10 mg PO QAM 10/10/21 02/05/22 History tablet,extended release 24 hr tamsulosin 0.4 mg capsule 0.4 mg PO QAM 10/10/21 02/05/22 History torsemide 20 mg tablet 20 - 40 mg PO QAM 10/10/21 02/05/22 History lamotrigine 100 mg tablet See Rx Instructions .Route .COMPLEX 11/23/21 02/05/22 History lamotrigine 25 mg tablet 75 mg PO QAM 11/23/21 02/05/22 History methenamine hippurate 1 gram 1 g PO BID 11/23/21 02/05/22 History tablet (Hiprex) ascorbic acid (vitamin C) 500 mg 500 mg PO BID 12/07/21 02/05/22 History tablet dulaglutide 4.5 mg/0.5 mL 4.5 mg subcut WK 12/07/21 02/05/22 History subcutaneous pen injector (Trulicity) lactulose 20 gram/30 mL oral 30 g PO BID 12/12/21 02/05/22 History solution metoprolol succinate 50 mg 50 mg PO QAM 12/12/21 02/05/22 History tablet,extended release 24 hr ertapenem 1 gram solution for 1 g IV DAILY 02/01/22 02/05/22 History injection Patient History Medical History Anxiety Bipolar disorder CAD (coronary artery disease) History of multiple PCI's to the RCA with subsequent CABG x1 in 2010 x 1 vessel Most recent cardiac testing-negative DSE in December 2017 Follows w/ Dr. Blackwell and Dr. Lucas Kjelwtl-Gywos-Duwhc disease follows w/ Dr. Lemus LEG WEAKNESS CURRENT PT/OT FOR - BRACES B/L LEGS Chronic diastolic CHF (congestive heart failure) Chronic pain syndrome Depression DM type 2 (diabetes mellitus, type 2) IDDM Dyslipidemia Encephalopathy d/c from [facility] 09/20/19 (hepatic encephalopathy) Gastroparesis GERD (gastroesophageal reflux disease) History of anesthesia reaction REMOTE HX, SIDE EFFECTS : ANXIETY AND SEVERE N/V History of COVID-19 6-8 MON AGO Hypertension Hypothyroidism Irregular heart beat follows Dr. 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 Moderate aortic stenosis GONZALEZ (nonalcoholic steatohepatitis) Osteoarthritis Portal hypertensive gastropathy SOB (shortness of breath) SINCE COVID 19/ 6-8 MON AGO, SOB, COUGH...NO DX...HAS VISIT WITH PULM UPCOMING TO EVALUATE Spondylosis Urinary incontinence UTI (urinary tract infection) FREQUENT/PREVENTATIVE ABX'S CURRENTLY MOST RECENT UTI JANUARY 04 - ABX COMPLETE - ON CURRENT PROPHYLACTIC TX Surgical History History of appendectomy History of back surgery sacral area History of cardiac cath multiple - most recent - 2 years ago @ [facility] History of cataract surgery RT History of colonoscopy History of esophagogastroduodenoscopy (EGD) History of heart artery stent 2 yrs ago @ [facility] > unsure of how many stents > follows Dr. Lucas History of total right knee replacement Hx of cholecystectomy S/P CABG x 1 2010 - single vessel S/P CARLOS (total abdominal hysterectomy) Family History Father Coronary heart disease Brother Coronary heart disease Father No problems noted. Mother No problems noted. 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 She has exquisite tenderness to palpation over the anterolateral aspect of her hip. She is unable to perform a straight leg raise test. She is able to actively dorsi and plantarflex her foot. Peripheral pulses are palpable. Capillary fill is difficult to know due to onychomycosis of her toenails. She is able to detect light sensation to touch over the pad of her digits. She tolerates logroll testing with only minimal pain referred to the hip. Results & Data ([facility]) Vital Signs (Past 12 Hours) Vital Signs Temp Pulse Resp BP Pulse Ox O2 Del Method O2 Flow Rate 02/05/22 08:26 85 20 96/64 L 98 Nasal Cannula 3 02/05/22 05:01 74 12 111/72 98 Nasal Cannula 3 02/05/22 03:24 97 Room Air 02/05/22 03:01 36.6 C 65 19 143/62 H 90 Room Air Diagnostic Findings Laboratory Results WBC 7.33 K/ul (4.8-10.8) 02/05/22 03:46 RBC 5.08 M/uL (3.93-5.22) 02/05/22 03:46 Hgb 12.1 g/dl (12.0-16.0) 02/05/22 03:46 Hct 39.5 % (34.1-44.9) 02/05/22 03:46 MCV 77.8 fL (80.0-100.0) L 02/05/22 03:46 MCH 23.8 pg (25.0-34.0) L 02/05/22 03:46 MCHC 30.6 g/dL (32.0-36.0) L 02/05/22 03:46 RDW Std Deviation 50.6 fL (36.4-46.3) H 02/05/22 03:46 RDW Coeff of Guillermo 18.2 % (11.5-14.5) H 02/05/22 03:46 Plt Count 139 K/uL (130-400) 02/05/22 03:46 MPV 10.2 fL (9.4-12.3) 02/05/22 03:46 Immature Gran % (Auto) 1.5 % 02/05/22 03:46 Neut % (Auto) 64.7 % 02/05/22 03:46 Lymph % (Auto) 21.7 % 02/05/22 03:46 Morrill % (Auto) 7.4 % 02/05/22 03:46 Eos % (Auto) 4.2 % 02/05/22 03:46 Baso % (Auto) 0.5 % 02/05/22 03:46 Neut # (Auto) 4.74 K/uL (1.4-6.5) 02/05/22 03:46 Lymph # (Auto) 1.59 K/uL (1.2-3.4) 02/05/22 03:46 Morrill # (Auto) 0.54 K/uL (0.24-0.82) 02/05/22 03:46 Eos # (Auto) 0.31 K/uL (0-0.50) 02/05/22 03:46 Baso # (Auto) 0.04 K/uL (0-0.2) 02/05/22 03:46 Immature Gran # (Auto) 0.11 K/uL (0.00-0.02) H 02/05/22 03:46 PT 11.5 Seconds (9.0-12.0) 02/05/22 03:46 INR 1.1 (0.9-1.1) 02/05/22 03:46 Sodium 133 mmol/L (136-145) L 02/05/22 03:46 Potassium 3.8 mmol/L (3.5-5.1) 02/05/22 03:46 Chloride 97 mmol/L (98-107) L 02/05/22 03:46 Carbon Dioxide 29 mmol/L (21-32) 02/05/22 03:46 Anion Gap 7 (3-11) 02/05/22 03:46 BUN 9 mg/dl (6-23) 02/05/22 03:46 Creatinine 1.03 mg/dl (0.6-1.2) 02/05/22 03:46 Est Cr Clr Drug Dosing Not Reportable 02/05/22 03:46 Est GFR ( Amer) 62.9 ml/min 02/05/22 03:46 Est GFR (Non-Af Amer) 54.3 ml/min 02/05/22 03:46 BUN/Creatinine Ratio 8.7 (10-20) L 02/05/22 03:46 Glucose 117 mg/dl (70-99(Fasting)) H 02/05/22 03:46 Calcium 9.0 mg/dl (8.5-10.1) 02/05/22 03:46 Magnesium 2.1 mg/dl (1.7-2.4) 02/05/22 03:46 Total Bilirubin 0.9 mg/dl (0.2-1.0) 02/05/22 03:46 AST 54 U/L (13-39) H 02/05/22 03:46 ALT 30 U/L (7-52) 02/05/22 03:46 Alkaline Phosphatase 219 U/L (34-104) H 02/05/22 03:46 Ammonia 12.0 umol/L (18-72) L 02/05/22 08:11 Total Protein 6.8 gm/dl (6.0-8.3) 02/05/22 03:46 Albumin 3.7 gm/dl (3.4-5.0) 02/05/22 03:46 Globulin 3.1 gm/dl (2.5-4.0) 02/05/22 03:46 Albumin/Globulin Ratio 1.2 (0.9-2) 02/05/22 03:46 Urine Color Yellow 02/05/22 03:18 Urine Appearance Clear (Clear) 02/05/22 03:18 Urine pH 7.5 (4.5-7.5) 02/05/22 03:18 Ur Specific Greer 1.008 (1.000-1.030) 02/05/22 03:18 Urine Protein Negative (Negative) 02/05/22 03:18 Urine Glucose (UA) Negative (Negative) 02/05/22 03:18 Urine Ketones Negative (Negative) 02/05/22 03:18 Urine Blood Negative (Negative) 02/05/22 03:18 Urine Nitrite Negative (Negative) 02/05/22 03:18 Urine Bilirubin Negative (Negative) 02/05/22 03:18 Urine Urobilinogen Negative (Negative) 02/05/22 03:18 Ur Leukocyte Esterase Negative (Negative) 02/05/22 03:18 SARS-CoV-2, RNA, NAAT NEGATIVE (NEGATIVE) 02/05/22 05:10 Impressions Chest X-Ray 02/05/22 03:24 XR chest 1V portable CLINICAL HISTORY: fall COMPARISON STUDY: Chest radiograph January 31, 2022. FINDINGS: There is mild elevation of the right hemidiaphragm, unchanged. Median sternotomy wires are noted. Cardiomediastinal silhouette is stable. No evidence for pulmonary edema. No pneumothorax or pleural effusion. No consolidation to suggest pneumonia. IMPRESSION: No acute cardiopulmonary findings. No change in appearance of the chest. ACT 112: Negative or not required by law. Electronically signed by: Mu Bonds M.D. 02/05/2022 6:[address] 02/05/22 03:[address] DOSE: 580.48 mGy.cm HISTORY: Fall. Head injury. Trauma TECHNIQUE: Multiaxial CT images of the head were performed without the use of intravenous contrast. Automated exposure control was utilized for this study. A dose lowering technique was utilized adhering to the principles of ALARA. Comparison: Head CT 12/12/2021. Findings: The paranasal sinuses and mastoid air cells are clear. The calvarium and skull base are intact. There is no mass, hematoma, midline shift, acute infarct. White matter hypodensity is nonspecific but suggestive of microvascular ischemic change. The ventricles and sulci demonstrate mild age-related involutional changes. 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 Impression: No significant change compared to the prior study. No acute intracranial abnormality. ACT 112: Negative or not required by law. Electronically signed by: Marquez Lindsay M.D. 02/05/2022 7:[address] 02/05/22 04:[address] DOSE: HISTORY: Left hip pain. fall TECHNIQUE: Multiaxial CT images of the left hip were performed and reformatted in the sagittal and coronal plane without the use of contrast. A dose lowering technique was utilized adhering to the principles of ALARA. COMPARISON: None. FINDINGS: There is an acute mildly displaced and slightly impacted subcapital left femoral neck fracture. This demonstrates posterior angulation and mild superior and anterior displacement. No dislocation. The left pelvic bones appear intact. IMPRESSION: Mildly displaced left subcapital femoral neck fracture. No dislocation. ACT 112: Negative or not required by law. Electronically signed by: Marquez Lindsay M.D. 02/05/2022 7:[address] 02/05/22 04:15 CT pelvis wo con CLINICAL HISTORY: fall COMPARISON STUDY: CT of the abdomen and pelvis January 23, 2022. TECHNIQUE: Axial images of the pelvis were obtained without IV contrast. Sagittal and coronal reconstructions were viewed. Automated exposure control was utilized for the study. A dose lowering technique was utilized adhering to the principles of ALARA. FINDINGS: Bladder is distended. Moderate stool within visualized portions of the colon is noted. Note is made of an acute displaced subcapital left femoral fracture. This is new since CT of January 23, 2022. Fracture is displaced approximately 2 cm. No additional acute fractures are identified on this examination. There is no proximal right femoral fracture. Sacroiliac joints and symphysis pubis are intact. Multilevel degenerative changes within visualized portions of the lumbar spine are noted with posterior decompression within the lower lumbar spine. IMPRESSION: Acute displaced subcapital left femoral fracture. ACT 112: Negative or not required by law. Electronically signed by: Mu Bonds M.D. 02/05/2022 7:30 AM
--- NOTE | 2022-02-05 10:35 | XRay Report ---
XR hip LT min 2V HISTORY: 71 years-old Female preop hip fracture preoperative exam. COMPARISON: CT left hip of same day TECHNIQUE: 2 views of the left hip FINDINGS: There is an acute mildly displaced, angulated and impacted subcapital left femoral neck fracture. The imaged mid to distal femur appears intact. No additional acute fracture or dislocation. Mild left hi p osteoarthritis. Arterial calcifications. IMPRESSION: Acute mildly displaced, angulated and impacted subcapital left femoral neck fracture. ACT 112: Negative or not required by law. The above report was generated using voice recognition software. It may contain grammatical, syntax o r spelling errors. Electronically signed by: Tommie Loredo M.D. 02/05/2022 10:34 AM
[2022-02-05] MEDS: ACETAMINOPHEN 325 MG TAB PO PRN (10:40)
[2022-02-05] MEDS: oxyCODONE HCL IR 5 MG TAB (IMMEDIATE RELEASE) PO PRN (10:40)
[2022-02-05] MEDS ORDERED: CARBOHYDRATES FOR HYPOGLYCEMIA PO PRN (10:50)
[2022-02-05] MEDS ORDERED: bisacodyL 10 MG SUPP PR PRN (10:50)
[2022-02-05] MEDS ORDERED: GLUCOSE 40% GEL 15 GM TUBE PO PRN (10:50)
[2022-02-05] MEDS ORDERED: GLUCOSE 10 TAB/TUBE PO PRN (10:50)
[2022-02-05] MEDS ORDERED: DEXTROSE 50% 50 ML SYRINGE IV PRN (10:50)
[2022-02-05] MEDS ORDERED: GLUCAGON FOR INJ 1 MG VIAL SQ PRN (10:50)
[2022-02-05] MEDS ORDERED: NALOXONE HCL 0.4 MG/1 ML VIAL/CARP IV PRN (10:50)
--- NOTE | 2022-02-05 11:10 | Cardiology Consultation ---
Date of Consultation February 05, 2022 Assessment & Plan (1) Hip fracture, left: (2) 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: (3) S/P CABG x 1: (4) Bipolar disorder: (5) Vmcyskb-Sohhg-Feyjh disease: (6) Moderate aortic stenosis: (7) CAD (coronary artery disease): Plan This patient has multiple medical problems beyond her significant cardiac history. She is high risk for any surgical procedure. She is currently optimally medically managed. For quality of life, she has no choice but to proceed to surgery to fix her fractured hip. It may be best to consider an ICU bed post surgery. Also post surgery she will need extensive rehab and consideration should be given for placement. History of Present Illness Attending Physician: Markos Marroquin MD History of Present Illness This is a 71-year-old female who is very medically complex. Her past medical history includes but is not limited to what is outlined below. She lives independently with some help from caregivers. Recently she has had a recurrent UTI and is on home IV antibiotics. The patient has to get up and go to the bathroom frequently due to dysuria. He was ambulating to the bathroom when she fell and fractured her left hip. This was not a syncopal event. The patient has had no recent cardiac symptoms. She has had no recent angina or chest pain. No progressive shortness of breath. Past medical history: 1.Complex coronary disease with eventual OHS and a MISAEL placed to the right coronary artery. Negative DSE 03/2020. History of chronic but stable angina. 2.Dyslipidemia - borderline controlled 3.Medication noncompliance 4.Cirrhosis 5.Bipolar disorder 6.Moderate Aortic stenosis 7.Hypertension 8.Chronic diastolic HF - improved volume status 9.hyponatremia Allergies Allergy/AdvReac Type Severity Reaction Status Date / Time propoxyphene Allergy Intermediate Rash Verified 02/05/22 03:04 fentanyl AdvReac Intermediate PANIC Verified 02/05/22 03:04 WANTS TO RUN AND AGGRESSIVE methocarbamol AdvReac Intermediate DELERIUM Verified 02/05/22 03:04 zolpidem AdvReac Intermediate confusion Verified 02/05/22 03:04 Home Medications Medication Instructions Recorded Confirmed Type albuterol sulfate 90 mcg/actuation 2 puff inhalation QID PRN 04/27/18 02/05/22 History aerosol inhaler (Ventolin HFA) Shortness Of Breath Or Wheezing aripiprazole 2 mg tablet 2 mg PO HS 04/27/18 02/05/22 History levothyroxine 88 mcg tablet 88 mcg PO QAM 04/27/18 02/05/22 History nitroglycerin 0.4 mg sublingual 0.4 mg sublingual DIRECTED PRN 04/27/18 02/05/22 History tablet (Nitrostat) Chest Pain montelukast 10 mg tablet 10 mg PO DAILY@1600 06/11/19 02/05/22 History spironolactone 50 mg tablet 50 mg PO BID 09/15/19 02/05/22 History (Aldactone) venlafaxine 75 mg capsule,extended 75 mg PO QAM 09/15/19 02/05/22 History release 24 hr insulin glargine 100 unit/mL (3 60 unit subcut QAM 12/22/19 02/05/22 History mL) subcutaneous pen (Basaglar KwikPen U-100 Insulin) morphine 15 mg tablet,extended 15 mg PO BID 01/16/20 02/05/22 History release rifaximin 550 mg tablet (Xifaxan) 550 mg PO BID 03/21/20 02/05/22 History venlafaxine 150 mg 150 mg PO QAM 01/07/21 02/05/22 History capsule,extended release 24 hr aspirin 81 mg tablet,delayed 81 mg PO QAM 01/26/21 02/05/22 History release oxycodone 5 mg tablet 5 mg PO Q8H PRN Breakthrough Pain 01/26/21 02/05/22 History pantoprazole 40 mg tablet,delayed 40 mg PO DAILYBB 01/26/21 02/05/22 History release gabapentin 300 mg capsule 300 mg PO BID 02/26/21 02/05/22 History clonazepam 0.5 mg tablet 0.5 mg PO TID 03/23/21 02/05/22 History atorvastatin 40 mg tablet 40 mg PO QAM 10/10/21 02/05/22 History dicyclomine 10 mg capsule 10 mg PO QID PRN Abdominal Pain 10/10/21 02/05/22 History ergocalciferol (vitamin D2) 1,250 1,250 mcg PO WK 10/10/21 02/05/22 History mcg (50,000 unit) capsule estradiol 1 applic vaginal HS 10/10/21 02/05/22 History ondansetron HCl 8 mg tablet 8 mg PO Q8H PRN Nausea 10/10/21 02/05/22 History oxybutynin chloride 10 mg 10 mg PO QAM 10/10/21 02/05/22 History tablet,extended release 24 hr tamsulosin 0.4 mg capsule 0.4 mg PO QAM 10/10/21 02/05/22 History torsemide 20 mg tablet 20 - 40 mg PO QAM 10/10/21 02/05/22 History lamotrigine 100 mg tablet See Rx Instructions .Route .COMPLEX 11/23/21 02/05/22 History lamotrigine 25 mg tablet 75 mg PO QAM 11/23/21 02/05/22 History methenamine hippurate 1 gram 1 g PO BID 11/23/21 02/05/22 History tablet (Hiprex) ascorbic acid (vitamin C) 500 mg 500 mg PO BID 12/07/21 02/05/22 History tablet dulaglutide 4.5 mg/0.5 mL 4.5 mg subcut WK 12/07/21 02/05/22 History subcutaneous pen injector (Trulicity) lactulose 20 gram/30 mL oral 30 g PO BID 12/12/21 02/05/22 History solution metoprolol succinate 50 mg 50 mg PO QAM 12/12/21 02/05/22 History tablet,extended release 24 hr ertapenem 1 gram solution for 1 g IV DAILY 02/01/22 02/05/22 History injection Patient History Medical History Anxiety Bipolar disorder CAD (coronary artery disease) History of multiple PCI's to the RCA with subsequent CABG x1 in 2010 x 1 vessel Most recent cardiac testing-negative DSE in December 2017 Follows w/ Dr. Blackwell and Dr. Lucas Ewazipc-Sefre-Fcspu disease follows w/ Dr. Lemus LEG WEAKNESS CURRENT PT/OT FOR - BRACES B/L LEGS Chronic diastolic CHF (congestive heart failure) Chronic pain syndrome Depression DM type 2 (diabetes mellitus, type 2) IDDM Dyslipidemia Encephalopathy d/c from [facility] 09/20/19 (hepatic encephalopathy) Gastroparesis GERD (gastroesophageal reflux disease) History of anesthesia reaction REMOTE HX, SIDE EFFECTS : ANXIETY AND SEVERE N/V History of COVID-19 6-8 MON AGO Hypertension Hypothyroidism Irregular heart beat follows Dr. 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 Moderate aortic stenosis GONZALEZ (nonalcoholic steatohepatitis) Osteoarthritis Portal hypertensive gastropathy SOB (shortness of breath) SINCE COVID 6-8 MON AGO, SOB, COUGH...NO DX...HAS VISIT WITH PULM UPCOMING TO EVALUATE Spondylosis Urinary incontinence UTI (urinary tract infection) FREQUENT/PREVENTATIVE ABX'S CURRENTLY MOST RECENT UTI JANUARY 04 - ABX COMPLETE - ON CURRENT PROPHYLACTIC TX Surgical History History of appendectomy History of back surgery sacral area History of cardiac cath multiple - most recent - 2 years ago @ [facility] History of cataract surgery RT History of colonoscopy History of esophagogastroduodenoscopy (EGD) History of heart artery stent 2 yrs ago @ [facility] > unsure of how many stents > follows Dr. Lucas History of total right knee replacement Hx of cholecystectomy S/P CABG x 2010 - single vessel S/P CARLOS (total abdominal hysterectomy) Family History Father Coronary heart disease Brother Coronary heart disease Father No problems noted. Mother No problems noted. 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 All other 10 point review of systems are negative. Physical Exam Physical Exam: General: no acute distress and stated age Head: normocephalic, no masses, lesions, tenderness or abnormalities Eyes: conjunctiva are pink and non-injected, sclera clear Neck: supple, no adenopathy, no bruits, normal jugular venous pulse, no hepatojugular reflux Chest: normal shape and normal respiratory effort Lungs: clear to auscultation and percussion Cardiac Exam: - regular rate & rhythm, no murmurs gallops or rubs - normal S1, normal S2 Pulses: 2(+) throughout Abdomen: abdomen soft, non-tender, no abnormal masses and no hepatosplenomegaly Musculoskeletal: no gait disturbance, no joint inflammation, no deforming arthritis Extremities: no edema and no cyanosis Neuro: grossly normal exam Results & Data ([facility]) Vital Signs (Past 12 Hours) Vital Signs Temp Pulse Resp BP Pulse Ox O2 Del Method O2 Flow Rate 02/05/22 08:26 85 20 96/64 L 98 Nasal Cannula 3 02/05/22 05:01 74 12 111/72 98 Nasal Cannula 3 02/05/22 03:24 97 Room Air 02/05/22 03:01 36.6 C 65 19 143/62 H 90 Room Air Laboratory Results Laboratory Results - last 24 hr 02/05/22 02/05/22 02/05/22 03:18 03:46 03:46 WBC 7.33 RBC 5.08 Hgb 12.1 Hct 39.5 MCV 77.8 L MCH 23.8 L MCHC 30.6 L RDW Std Deviation 50.6 H RDW Coeff of Guillermo 18.2 H Plt Count 139 MPV 10.2 Immature Gran % (Auto) 1.5 Neut % (Auto) 64.7 Lymph % (Auto) 21.7 [place] % (Auto) 7.4 Eos % (Auto) 4.2 Baso % (Auto) 0.5 Neut # (Auto) 4.74 Lymph # (Auto) 1.59 [place] # (Auto) 0.54 Eos # (Auto) 0.31 Baso # (Auto) 0.04 Immature Gran # (Auto) 0.11 H PT 11.5 INR 1.1 Sodium Potassium Chloride Carbon Dioxide Anion Gap BUN Creatinine Est Cr Clr Drug Dosing Est GFR ( Amer) Est GFR (Non-Af Amer) BUN/Creatinine Ratio Glucose Calcium Magnesium Total Bilirubin AST ALT Alkaline Phosphatase Ammonia Total Protein Albumin Globulin Albumin/Globulin Ratio Urine Color Yellow Urine Appearance Clear Urine pH 7.5 Ur Specific Hitchcock 1.008 Urine Protein Negative Urine Glucose (UA) Negative Urine Ketones Negative Urine Blood Negative Urine Nitrite Negative Urine Bilirubin Negative Urine Urobilinogen Negative Ur Leukocyte Esterase Negative SARS-CoV-2, RNA, NAAT Blood Type Antibody Screen Antibody Identification Antibody ID Comment 02/05/22 02/05/22 02/05/22 03:46 03:46 05:10 WBC RBC Hgb Hct MCV MCH MCHC RDW Std Deviation RDW Coeff of Guillermo Plt Count MPV Immature Gran % (Auto) Neut % (Auto) Lymph % (Auto) [place] % (Auto) Eos % (Auto) Baso % (Auto) Neut # (Auto) Lymph # (Auto) [place] # (Auto) Eos # (Auto) Baso # (Auto) Immature Gran # (Auto) PT INR Sodium 133 L Potassium 3.8 Chloride 97 L Carbon Dioxide 29 Anion Gap 7 BUN 9 Creatinine 1.03 Est Cr Clr Drug Dosing Not Reportable Est GFR ( Amer) 62.9 Est GFR (Non-Af Amer) 54.3 BUN/Creatinine Ratio 8.7 L Glucose 117 H Calcium 9.0 Magnesium 2.1 Total Bilirubin 0.9 AST 54 H ALT 30 Alkaline Phosphatase 219 H Ammonia Total Protein 6.8 Albumin 3.7 Globulin 3.1 Albumin/Globulin Ratio 1.2 Urine Color Urine Appearance Urine pH Ur Specific [place]cock Urine Protein Urine Glucose (UA) Urine Ketones Urine Blood Urine Nitrite Urine Bilirubin Urine Urobilinogen Ur Leukocyte Esterase SARS-CoV-2, RNA, NAAT NEGATIVE Blood Type Antibody Screen Antibody Identification Antibody ID Comment 02/05/22 02/05/22 08:11 08:11 WBC RBC Hgb Hct MCV MCH MCHC RDW Std Deviation RDW Coeff of Guillermo Plt Count MPV Immature Gran % (Auto) Neut % (Auto) Lymph % (Auto) [place] % (Auto) Eos % (Auto) Baso % (Auto) Neut # (Auto) Lymph # (Auto) [place] # (Auto) Eos # (Auto) Baso # (Auto) Immature Gran # (Auto) PT INR Sodium Potassium Chloride Carbon Dioxide Anion Gap BUN Creatinine Est Cr Clr Drug Dosing Est GFR ( Amer) Est GFR (Non-Af Amer) BUN/Creatinine Ratio Glucose Calcium Magnesium Total Bilirubin AST ALT Alkaline Phosphatase Ammonia 12.0 L Total Protein Albumin Globulin Albumin/Globulin Ratio Urine Color Urine Appearance Urine pH Ur Specific [place]cock Urine Protein Urine Glucose (UA) Urine Ketones Urine Blood Urine Nitrite Urine Bilirubin Urine Urobilinogen Ur Leukocyte Esterase SARS-CoV-2, RNA, NAAT Blood Type O Negative Antibody Screen POSITIVE A Antibody Identification Pending Antibody ID Comment Pending Medications Administered Current Inpatient Medications Acetaminophen (Acetaminophen 325 Mg Tab) 325 mg PO Q6H PRN PRN Reason: Mild Pain Stop: 03/07/22 06:14 Last Admin: 02/05/22 10:40 Dose: 325 mg Aripiprazole (Aripiprazole 1 Mg/Ml Oral Soln 150 Ml Btl) 2 mg PO HS ANGELLA Stop: 03/07/22 20:59 Aspirin (Aspirin 81 Mg Ectab) 81 mg PO QAM [facility] Stop: 03/07/22 11:29 Atorvastatin Calcium (Atorvastatin 40 Mg Tab) 40 mg PO QAM [facility] Stop: 03/07/22 11:14 Bisacodyl (Bisacodyl 10 Mg Supp) 10 mg MN DAILY PRN PRN Reason: Constipation Stop: 03/07/22 10:49 Dextrose (Dextrose 50% 50 Ml Syringe) 25 - 50 ml IV UD PRN; Protocol PRN Reason: Hypoglycemia Protocol Stop: 03/07/22 10:49 Glucagon (Glucagon For Inj 1 Mg Vial) 1 mg SQ UD PRN; Protocol PRN Reason: Hypoglycemia Protocol Stop: 03/07/22 10:49 Glucose (Glucose 40% Gel 15 Gm Tube) 15 - 30 gm PO UD PRN; Protocol PRN Reason: Hypoglycemia Protocol Stop: 03/07/22 10:49 Glucose (Glucose 10 Tab/Tube) 4 - 8 tab PO UD PRN; Protocol PRN Reason: Hypoglycemia Treatment Stop: 03/07/22 10:49 Sodium Chloride (Nss 1000ml) 1,000 mls @ 40 mls/hr IV .Q24H ONE Stop: 02/06/22 06:14 Last Admin: 02/05/22 08:26 Dose: 40 mls/hr Promethazine HCl 12.5 mg/ (Sodium Chloride) 50.5 mls @ 202 mls/hr IV Q6H PRN PRN Reason: Nausea And Vomiting Stop: 03/07/22 06:14 Sodium Chloride (Nss 1000ml) 1,000 mls @ 15 mls/hr IV .Q24H ANGELLA Stop: 03/07/22 08:59 Cefazolin Sodium (Ancef 3000mg) 65 mls @ 130 mls/hr IV PREOP ANGELLA; Protocol Stop: 02/06/22 05:59 Ertapenem 1,000 mg/ Syringe 10 mls @ 2 mls/min IV Q24H ANGELLA; Protocol Stop: 02/16/22 08:59 Insulin Aspart (Insulin Aspart Per Unit) 0 units SC ACHS [facility] Stop: 03/07/22 11:29 Insulin Glargine (Lantus Per Unit Charge) 10 units SQ BID [facility] Stop: 03/07/22 11:14 Lactulose (Lactulose Syrup 30 Gm/45 Ml Udp) 30 gm PO BID [facility] Stop: 03/07/22 11:29 Lamotrigine (Lamotrigine 25 Mg Tab) 75 mg PO QAM [facility] Stop: 03/07/22 11:14 Lamotrigine (Lamotrigine 100 Mg Tab) 100 mg PO QAM [facility] Stop: 03/07/22 11:14 Lamotrigine (Lamotrigine 100 Mg Tab) 150 mg PO HS [facility] Stop: 03/07/22 20:59 Levothyroxine Sodium (Levothyroxine Sodium 88 Mcg Tablet) 88 mcg PO DAILYBB [facility] Stop: 03/07/22 11:14 Lorazepam (Lorazepam 0.5 Mg Tab) 0.25 mg PO TID PRN PRN Reason: Anxiety Stop: 03/07/22 06:17 Metoprolol Succinate (Metoprolol Succ 50mg Ext Rel Tab) [facility] Stop: 03/07/22 11:14 Miscellaneous (Carbohydrates For Hypoglycemia ) 15 - 30 gm PO UD PRN PRN Reason: Hypoglycemia Protocol Stop: 03/07/22 10:49 Montelukast Sodium (Montelukast Sodium 10 Mg Tablet) 10 mg PO DAILY@1600 [facility] Stop: 03/07/22 15:59 Morphine Sulfate (Morphine Sulfate 4 Mg/Ml 1 Ml Carp\Vial) 4 mg IV Q4H PRN PRN Reason: Pain Stop: 02/19/22 06:14 Last Admin: 02/05/22 08:21 Dose: 4 mg Morphine Sulfate (Morphine Sulfate Cr 15 Mg Tabcr) 15 mg PO BID [facility] Stop: 02/19/22 11:14 Naloxone HCl (Naloxone Hcl 0.4 Mg/1 Ml Vial/Carp) 0.1 mg IV UD PRN PRN Reason: Opiate Overdose Stop: 03/07/22 10:49 Oxybutynin Chloride (Oxybutynin Chloride Xl 5 Mg Tabcr) 10 mg PO QAM [facility] Stop: 03/07/22 11:14 Oxycodone HCl (Oxycodone Hcl Ir 5 Mg Tab (Immediate Release)) 5 mg PO Q4H PRN PRN Reason: Pain Stop: 02/19/22 06:14 Last Admin: 02/05/22 10:40 Dose: 5 mg Pantoprazole Sodium (Pantoprazole 40 Mg Tab) 40 mg PO DAILYBB [facility] Stop: 03/07/22 11:14 Rifaximin (Rifaximin 550 Mg Tablet) 550 mg PO BID [facility] Stop: 03/07/22 11:14 Tamsulosin HCl (Tamsulosin Hcl 0.4 Mg Cap) 0.4 mg PO QAM [facility] Stop: 03/07/22 11:14 Venlafaxine HCl (Venlafaxine Hcl Xr 150 Mg Capxr) 150 mg PO QAM [facility] Stop: 03/07/22 11:14 Venlafaxine HCl (Venlafaxine Hcl Xr 75 Mg Capxr) 75 mg PO QAM [facility] Stop: 03/07/22 11:14
[2022-02-05] MEDS ORDERED: LACTULOSE SYRUP 20 GM/30 ML UDC PO SCH (11:15)
--- NOTE | 2022-02-05 11:51 | Electrocardiogram Report ---
Test Reason : Blood Pressure : / mmHG Vent. Rate : 064 BPM Atrial Rate : 064 BPM P-R Int : 184 ms QRS Dur : 106 ms QT Int : 436 ms P-R-T Axes : 052 -53 073 degrees QTc Int : 449 ms Poor data quality, interpretation may be adversely affected Normal sinus rhythm Left anterior fascicular block possible Inferior infarct , age undetermined Abnormal ECG When compared with ECG of 31-JAN-2022 14:55, Criteria for Anterior infarct are no longer Present Criteria for Anterolateral infarct are no longer Present No significant change was found Confirmed by Daniel Maharaj ([id number]) on 02/05/2022 11:51:09 AM Referred By: REFERRED SELF Confirmed By:Jarrell Maharaj
[2022-02-05] MEDS ORDERED: ROCURONIUM BROMIDE 10 MG/ML 5 ML VIAL IV ONE (12:41)
[2022-02-05] MEDS ORDERED: LIDOCAINE 2% 2 ML VIAL/AMP(20MG/ML) INFIL ONE (12:41)
[2022-02-05] MEDS ORDERED: PROPOFOL IV EMULSION 10 MG/ML 20 ML VIAL IV ONE (12:41)
[2022-02-05] MEDS ORDERED: fentaNYL citrate 100 MCG/2 ML VIAL ONE (12:42)
--- NOTE | 2022-02-05 12:55 | Anesthesiology Consultation ---
Date of Service February 05, 2022 Assessment & Plan (1) Encounter for pre-operative examination: Chart Review Chart Review: direct entry midwife initiated History Surgery Operation Date: 02/05/22 09:20 Proposed Procedures p Left Hip Bipolar - Ivan Cha MD Height/Weight Weight: 114.9 kg Allergies Allergy/AdvReac Type Severity Reaction Status Date / Time propoxyphene Allergy Intermediate Rash Verified 02/05/22 03:04 fentanyl AdvReac Intermediate PANIC Verified 02/05/22 03:04 WANTS TO RUN AND AGGRESSIVE methocarbamol AdvReac Intermediate DELERIUM Verified 02/05/22 03:04 zolpidem AdvReac Intermediate confusion Verified 02/05/22 03:04 Medications Home Medications Medication Instructions Recorded Confirmed Last Taken albuterol sulfate 90 mcg/actuation 2 puff inhalation QID PRN 04/27/18 02/05/22 12/07/21 aerosol inhaler (Ventolin HFA) Shortness Of Breath Or Wheezing aripiprazole 2 mg tablet 2 mg PO HS 04/27/18 02/05/22 02/04/22 levothyroxine 88 mcg tablet 88 mcg PO QAM 04/27/18 02/05/22 02/04/22 nitroglycerin 0.4 mg sublingual 0.4 mg sublingual DIRECTED PRN 04/27/18 02/05/22 03/20/20 21:00 tablet (Nitrostat) Chest Pain 3 tablets montelukast 10 mg tablet 10 mg PO DAILY@1600 06/11/19 02/05/22 02/04/22 spironolactone 50 mg tablet 50 mg PO BID 09/15/19 02/05/22 02/04/22 (Aldactone) venlafaxine 75 mg capsule,extended 75 mg PO QAM 09/15/19 02/05/22 02/04/22 release 24 hr insulin glargine 100 unit/mL (3 60 unit subcut QAM 12/22/19 02/05/22 02/04/22 mL) subcutaneous pen (Basaglar KwikPen U-100 Insulin) morphine 15 mg tablet,extended 15 mg PO BID 01/16/20 02/05/22 02/04/22 release rifaximin 550 mg tablet (Xifaxan) 550 mg PO BID 03/21/20 02/05/22 02/04/22 venlafaxine 150 mg 150 mg PO QAM 01/07/21 02/05/22 02/04/22 capsule,extended release 24 hr aspirin 81 mg tablet,delayed 81 mg PO QAM 01/26/21 02/05/22 02/04/22 release oxycodone 5 mg tablet 5 mg PO Q8H PRN Breakthrough Pain 01/26/21 02/05/22 Unknown pantoprazole 40 mg tablet,delayed 40 mg PO DAILYBB 01/26/21 02/05/22 02/04/22 release gabapentin 300 mg capsule 300 mg PO BID 02/26/21 02/05/22 02/04/22 clonazepam 0.5 mg tablet 0.5 mg PO TID 03/23/21 02/05/22 02/04/22 atorvastatin 40 mg tablet 40 mg PO QAM 10/10/21 02/05/22 02/04/22 dicyclomine 10 mg capsule 10 mg PO QID PRN Abdominal Pain 10/10/21 02/05/22 10/10/21 ergocalciferol (vitamin D2) 1,250 1,250 mcg PO WK 10/10/21 02/05/22 01/31/22 mcg (50,000 unit) capsule estradiol 1 applic vaginal HS 10/10/21 02/05/22 02/04/22 ondansetron HCl 8 mg tablet 8 mg PO Q8H PRN Nausea 10/10/21 02/05/22 12/04/21 oxybutynin chloride 10 mg 10 mg PO QAM 10/10/21 02/05/22 02/04/22 tablet,extended release 24 hr tamsulosin 0.4 mg capsule 0.4 mg PO QAM 10/10/21 02/05/22 02/04/22 torsemide 20 mg tablet 20 - 40 mg PO QAM 10/10/21 02/05/22 02/04/22 lamotrigine 100 mg tablet See Rx Instructions .Route .COMPLEX 11/23/21 02/05/22 02/04/22 lamotrigine 25 mg tablet 75 mg PO QAM 11/23/21 02/05/22 02/04/22 methenamine hippurate 1 gram 1 g PO BID 11/23/21 02/05/22 02/04/22 tablet (Hiprex) ascorbic acid (vitamin C) 500 mg 500 mg PO BID 12/07/21 02/05/22 02/04/22 tablet dulaglutide 4.5 mg/0.5 mL 4.5 mg subcut WK 12/07/21 02/05/22 02/04/22 subcutaneous pen injector (Trulicity) lactulose 20 gram/30 mL oral 30 g PO BID 12/12/21 02/05/22 02/04/22 solution metoprolol succinate 50 mg 50 mg PO QAM 12/12/21 02/05/22 02/04/22 tablet,extended release 24 hr ertapenem 1 gram solution for 1 g IV DAILY 02/01/22 02/05/22 02/01/22 15:02 injection Active Medications Generic Name Dose Route Start Last Admin Trade Name Freq PRN Reason Stop Dose Admin Acetaminophen 325 mg 02/05/22 06:15 02/05/22 10:40 Acetaminophen 325 Mg Tab PO 03/07/22 06:14 325 mg Q6H PRN Administration Mild Pain Sodium Chloride 1,000 mls @ 40 mls/hr 02/05/22 06:15 02/05/22 08:26 Nss 1000ml IV 02/06/22 06:14 40 mls/hr .Q24H ONE Administration Morphine Sulfate 4 mg 02/05/22 06:15 02/05/22 08:21 Morphine Sulfate 4 Mg/Ml 1 Ml Carp\Vial IV 02/19/22 06:14 4 mg Q4H PRN Administration Pain Oxycodone HCl 5 mg 02/05/22 06:15 02/05/22 10:40 Oxycodone Hcl Ir 5 Mg Tab (Immediate Release) PO 02/19/22 06:14 5 mg Q4H PRN Administration Pain Past Medical History Medical History Anxiety Bipolar disorder CAD (coronary artery disease) History of multiple PCI's to the RCA with subsequent CABG x1 in 2010 x 1 vessel Most recent cardiac testing-negative DSE in December 2017 Follows w/ Dr. Blackwell and Dr. Lucas Qezzupj-Dgnsz-Szmvi disease follows w/ Dr. Lemus LEG WEAKNESS CURRENT PT/OT FOR - BRACES B/L LEGS Chronic diastolic CHF (congestive heart failure) Chronic pain syndrome Depression DM type 2 (diabetes mellitus, type 2) IDDM Dyslipidemia Encephalopathy d/c from [facility] 09/20/19 (hepatic encephalopathy) Gastroparesis GERD (gastroesophageal reflux disease) History of anesthesia reaction REMOTE HX, SIDE EFFECTS : ANXIETY AND SEVERE N/V History of COVID-19 6-8 MON AGO Hypertension Hypothyroidism Irregular heart beat follows Dr. 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 Moderate aortic stenosis GONZALEZ (nonalcoholic steatohepatitis) Osteoarthritis Portal hypertensive gastropathy SOB (shortness of breath) SINCE COVID / 6-8 MON AGO, SOB, COUGH...NO DX...HAS VISIT WITH PULM UPCOMING TO EVALUATE Spondylosis Urinary incontinence UTI (urinary tract infection) FREQUENT/PREVENTATIVE ABX'S CURRENTLY MOST RECENT UTI JANUARY 04 - ABX COMPLETE - ON CURRENT PROPHYLACTIC TX Past Family History Family History Father Coronary heart disease Brother Coronary heart disease Father No problems noted. Mother No problems noted. Past Surgical History Surgical History History of appendectomy History of back surgery sacral area History of cardiac cath multiple - most recent - 2 years ago @ [facility] History of cataract surgery RT History of colonoscopy History of esophagogastroduodenoscopy (EGD) History of heart artery stent 2 yrs ago @ [facility] > unsure of how many stents > follows Dr. Lucas History of total right knee replacement Hx of cholecystectomy S/P CABG x 1 2010 - single vessel S/P CARLOS (total abdominal hysterectomy) Social History Smoking Status: Never smoker Hx Alcohol Use: No Alcohol type: beer and wine alcohol intake frequency: holidays/special occasions only Hx Substance Use: No substance use type: does not use Physical Exam Vital Signs Last Vital Signs Temp 98 F 02/05/22 03:01 Pulse 85 02/05/22 12:20 Resp 14 02/05/22 12:20 BP 110/65 02/05/22 12:00 Pulse Ox 96 02/05/22 12:20 O2 Del Method 02/05/22 08:26 O2 Flow Rate 3 02/05/22 08:26 Testing Laboratory Results 02/05/22 03:46 02/05/22 03:46 PT 11.5 Seconds (9.0-12.0) 02/05/22 03:46 INR 1.1 (0.9-1.1) 02/05/22 03:46 Urine Color Yellow 02/05/22 03:18 Urine Appearance Clear (Clear) 02/05/22 03:18 Urine pH 7.5 (4.5-7.5) 02/05/22 03:18 Ur Specific [place] 1.008 (1.000-1.030) 02/05/22 03:18 Urine Protein Negative (Negative) 02/05/22 03:18 Urine Glucose (UA) Negative (Negative) 02/05/22 03:18 Urine Ketones Negative (Negative) 02/05/22 03:18 Urine Nitrite Negative (Negative) 02/05/22 03:18 Ur Leukocyte Esterase Negative (Negative) 02/05/22 03:18 Blood Type O Negative 02/05/22 08:11 Antibody Screen POSITIVE A 02/05/22 08:11 Electrocardiogram Date: 02/05/22 Poor data quality, interpretation may be adversely affected Normal sinus rhythm Left anterior fascicular block possible Inferior infarct , age undetermined Abnormal ECG When compared with ECG of 31-JAN-2022 14:55, Criteria for Anterior infarct are no longer Present Criteria for Anterolateral infarct are no longer Present No significant change was found Confirmed by Daniel Maharaj ([id number]) on 02/05/2022 11:51:09 AM Chest X-Ray Date: 02/05/22 Findings: + NAD Echocardiogram Date: 03/22/20 The study was technically adequate. Compared to prior study, there is no significant change. LV systolic function is normal EF 55-60% LV wall motion is normal AV is trileaflet AV is mildly calcified Moderate valvular
--- NOTE | 2022-02-05 12:56 | Communication Note ---
Date of Service: February 05, 2022 Pt was seen and examined for left hip fracture. Pt had a mechanical fall last night that led L hip fracture.Lying in bed with daughter at bedside. Pt is a little sleepy from the pain med. She said that pain worst with movement of the LLE. CT hip showed L hip mildly displaced left subcapital femoral neck fracture. CT pelvis showed Acute displaced subcapital left femoral fracture. Ortho on plan to take her to OR later for left hip hemiarthroplasty. Cardiology consulted for preop clearance due to her significant cardiac history. She is high risk for any surgical procedure.As per cardiology pt is currently optimally medically managed.Keep NPO for now. Continue pain control. Continue monitor closely. MD Cara
[2022-02-05] MEDS ORDERED: BUPIVACAINE 0.5 % 5 MG/1 ML MPF 30ML VIAL ONE (13:23)
[2022-02-05] MEDS ORDERED: THROMBIN FOR SOLN 20000 UNIT KIT ONE (13:23)
[2022-02-05] MEDS ORDERED: ceFAZolin 330 MG/ML 1 GM VIAL ONE (13:23)
[2022-02-05] MEDS ORDERED: LIDOCAINE 1% LOCAL 20 ML VIAL ONE (13:23)
[2022-02-05] MEDS ORDERED: ALBUMIN HUMAN 5% 12.5 GM/250 ML VIAL IV ONE (13:35)
[2022-02-05] MEDS ORDERED: ONDANSETRON INJ 2 MG/ML 2 ML VIAL IV PRN (13:39)
[2022-02-05] MEDS ORDERED: ePHEDrine sulfate 50 MG/ML AMP IV PRN (13:39)
[2022-02-05] MEDS ORDERED: HYDROmorphone INJ 1 MG/ML SYRINGE IV PRN (13:39)
[2022-02-05] MEDS ORDERED: ATROPINE SULFATE 0.1 MG/ML 10ML SYR IV PRN (13:39)
--- NOTE | 2022-02-05 13:39 | Orthopedic Progress Note ---
Date of Service February 05, 2022 Assessment & Plan (1) Hip fracture, left: Plan: CT scan and x-rays reviewed. Displaced left femoral neck fracture. History and physical and consultation and cardiology consult reviewed. She has Vspsvaq-Kmifd-Egboc disease. 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 According to daughter. Her allergies are noted. She has recurrent urinary tract infections. Urinary analysis today is clean she is on IV medication for that. Cirrhosis. Heart disease bipolar disorder diabetes. Health history noted and reviewed. She and her daughter are educated about the diagnosis. We talked about options for surgical or nonsurgical management. We reviewed the pros and cons of each and and informed consent was obtained as they would like to proceed with operative intervention. Risks benefits rehab recovery discussed. Plan will be for a cemented left hip hemiarthroplasty. Labs noted. Preop antibiotics. Admission and Anticipated Discharge Date Admission Date: February 05, 2022 Subjective Patient fell this a.m. complains of left hip pain. Seen and evaluated and diagnosed with a left femoral neck fracture. Physical Exam Physical Exam: No bruising or swelling of the left hip but she has a positive logroll. The remainder of the left lower extremity is nontender without swelling. Posterior tib pulses are nonpalpable bilaterally but she has a 1+ dorsalis pedis pulse bilaterally. She can flex and extend her knee slightly but is limited by pain. She has minimal if any ability to move her ankles and wiggle her toes bilaterally secondary to Mlmeott-Xbqpi-Gxblt disease. She also has diminished sensation. Results & Data ([facility]) Vital Signs (Past 12 Hours) Vital Signs Temp Pulse Pulse Pulse Resp BP BP 02/05/22 12:52 36.9 C 85 20 92/45 L 02/05/22 12:20 85 14 02/05/22 12:10 82 15 02/05/22 12:00 86 15 02/05/22 12:00 110/65 02/05/22 11:50 83 17 02/05/22 11:40 84 13 02/05/22 11:30 87 17 02/05/22 11:30 102/60 02/05/22 11:20 84 16 02/05/22 11:10 84 22 02/05/22 11:00 86 13 02/05/22 11:00 115/71 02/05/22 10:50 84 23 02/05/22 10:40 81 16 02/05/22 10:31 105/63 02/05/22 10:31 87 17 02/05/22 10:30 83 14 02/05/22 10:20 80 17 02/05/22 10:14 02/05/22 09:50 85 13 02/05/22 09:43 82 13 02/05/22 09:00 85 20 02/05/22 09:00 75/48 L 02/05/22 08:50 85 19 02/05/22 08:40 87 24 02/05/22 08:33 96/53 L 02/05/22 08:33 83 13 02/05/22 08:30 84 15 02/05/22 08:30 76/52 L 02/05/22 08:24 83 13 02/05/22 08:24 96/64 L 02/05/22 08:21 72/53 L 02/05/22 08:21 84 14 02/05/22 08:20 84 15 02/05/22 08:10 83 19 02/05/22 08:00 83 15 02/05/22 07:50 82 17 02/05/22 07:40 82 14 02/05/22 07:30 81 14 02/05/22 07:30 104/66 02/05/22 07:20 82 14 02/05/22 07:10 83 19 02/05/22 07:01 81 18 02/05/22 07:01 119/55 L 02/05/22 07:00 81 16 02/05/22 06:50 82 26 H 02/05/22 06:40 80 20 02/05/22 06:30 79 22 02/05/22 06:30 112/77 02/05/22 06:20 76 16 02/05/22 08:26 85 20 02/05/22 05:01 74 12 02/05/22 03:24 02/05/22 03:01 36.6 C 65 19 BP Pulse Ox O2 Del Method O2 Flow Rate 02/05/22 12:52 100 Nasal Cannula 3 02/05/22 12:20 96 02/05/22 12:10 98 02/05/22 12:00 98 02/05/22 12:00 02/05/22 11:50 99 02/05/22 11:40 98 02/05/22 11:30 95 02/05/22 11:30 02/05/22 11:20 99 02/05/22 11:10 98 02/05/22 11:00 97 02/05/22 11:00 02/05/22 10:50 98 02/05/22 10:40 89 L 02/05/22 10:31 02/05/22 10:31 94 02/05/22 10:30 93 02/05/22 10:20 100 02/05/22 10:14 94 02/05/22 09:50 02/05/22 09:43 96 02/05/22 09:00 93 02/05/22 09:00 02/05/22 08:50 97 02/05/22 08:40 98 02/05/22 08:33 02/05/22 08:33 99 02/05/22 08:30 97 02/05/22 08:30 02/05/22 08:24 97 02/05/22 08:24 02/05/22 08:21 02/05/22 08:21 91 02/05/22 08:20 93 02/05/22 08:10 95 02/05/22 08:00 94 02/05/22 07:50 96 02/05/22 07:40 96 02/05/22 07:30 91 02/05/22 07:30 02/05/22 07:20 96 02/05/22 07:10 97 02/05/22 07:01 97 02/05/22 07:01 02/05/22 07:00 91 02/05/22 06:50 94 02/05/22 06:40 94 02/05/22 06:30 91 02/05/22 06:30 02/05/22 06:20 95 02/05/22 08:26 96/64 L 98 Nasal Cannula 3 02/05/22 05:01 111/72 98 Nasal Cannula 3 02/05/22 03:24 97 Room Air 02/05/22 03:01 143/62 H 90 Room Air
[2022-02-05] MEDS ORDERED: VANCOMYCIN HCL 1000MG/20ML VIAL ONE (13:49)
[2022-02-05] MEDS ORDERED: TRANEXAMIC ACID / 0.7% NACL 1000MG/100ML BAG IV ONE (14:11)
[2022-02-05] MEDS ORDERED: ONDANSETRON INJ 2 MG/ML 2 ML VIAL ONE (14:43)
[2022-02-05] MEDS ORDERED: TRANEXAMIC ACID 100 MG/ML 10 ML VIAL IV ONE (15:10)
[2022-02-05] MEDS ORDERED: ePHEDrine sulfate 50 MG/ML AMP ONE (16:06)
[2022-02-05] MEDS ORDERED: HYDROmorphone INJ 2 MG/ML SYR/VIAL ONE (16:07)
[2022-02-05] MEDS ORDERED: GLYCOPYRROLATE 0.2 MG/ML VIAL ONE (16:41)
[2022-02-05] MEDS ORDERED: NEOSTIGMINE METHYLSULFATE 1 MG/ML 10ML VIAL ONE (16:41)
--- NOTE | 2022-02-05 17:13 | Operative Report ---
Post Operative Report Pre & Post Diagnosis Operation Date: 02/05/22 09:20 Pre-Op Diagnosis: Left hip fracture, femoral neck Post-Op Diagnosis: Left hip fracture I identified the patient and participated in the time-out.: Yes Procedure Operation Date: 02/05/22 09:20 Actual Procedures p Left Hip Hemiarthroplasty(Left) - Ivan Cha MD Surgeon Ivan Cha MD Medical Scheduler aleksey harris. no resident or fellow available Estimated Blood Loss 50 Findings Consistent with Post-Op Diagnosis Specimens none Anesthesia Type General Regional Complications none Disposition Accompanied Patient To Recovery: No Disposition: PCU Indications Angelina is 71. She has multiple medical problems including diabetes heart disease and Ybmaozd-Cwwsg-Srgdc disease. She fell and fractured her left hip. We talked about options risks and benefits and she and her family have elected to proceed with surgical intervention. Description of Procedure Informed consent obtained. Patient identified. She identified the operative site as the left hip. I marked with my initials. Preoperative surgical timeout was performed and a preop dose of IV antibiotics were given. TXA given. She was taken to the OR positioned decubitus on the OR table with the left side up. The Stolberg positioner was utilized bony prominences of the upper and lower extremities were inspected and padded axillary roll inserted. SCD used on the nonoperative leg. Postoperatively we will do all early mobility SCDs and Lovenox. Leg was prescribed prepped and draped in usual sterile fashion. A 20 cm incision was made one third below and two thirds above the greater trochanter on the lateral aspect of the hip. There was a 3 inch's fatty soft tissue envelope which was divided with electrocautery down to the level of the fascia which was then divided in line with the incision. The Charnley retractor was inserted. The short external rotators were elevated up off of the proximal femur. The distal fracture fragment was displaced proximally and internally rotated into the external rotators. The capsule had already been largely disrupted. I then made a femoral neck cut 1 fingerbreadth above the lesser trochanter. I was then able to identify the posterior joint capsule dissected free and retracted posteriorly. The short external rotators and the joint capsule were preserved and repaired at the end of the surgery. The inferior capsule was released. Retractors were inserted to expose the socket and the femoral head was removed and sized to a about a 48-1/2. Trialing looked good. The acetabulum was unremarkable. Labrum intact and no significant arthritis. Ligamentum teres resected. The leg was placed into the 9090 position where as close as possible based upon her pannus. Soft tissue was cleared around the base of the femoral neck. The box cutting guide was utilized followed by the lateralizing reamer. Broaching began at the small size and proceeded up to 17 with good fit and fill and stability. Trialing was then performed. Then went ahead and plugged the canal. Pulsatile lavage. Dried. 2 bags of Simplex P cement was mixed with 4 g of vancomycin. While in a liquid state retrograde fill was performed along with pressurization followed by insertion of the implant. Broaching was performed in as much physiologic anteversion as possible. The implant was inserted lateralized and in 20 to 30 degrees of anteversion. Extra cement removed. Once the cement had hardened trialing again was performed. There was good stability with the +7.5 neck length. Because of her body habitus the hip could be flexed to about 80. Thereafter pressure from the abdomen seem to push the hip out. With the hip abducted internal rotation was easily to 30 degrees with the hip a deducted it was about 15 to 20 degrees. Irrigation was performed and the final components were inserted. Copious irrigation was performed. The short external rotators and posterior capsule were repaired back to the greater tract trochanter and hip abductor tendons using #1 Ethibond. Sutures placed through bone or tendon as appropriate. The IT band and gluteal fascia were repaired using interrupted #2 FiberWire and short segments of interrupted #1 Vicryl. The skin was closed in layers. 0 Vicryl to close down the space followed by 2-0 Vicryl daniel and a Prevena wound VAC. Patient wake from anesthesia without difficulty taken to recovery in stable condition the resected femoral head was sent for specimen. Counts were correct and blood loss is estimated to be 50 cc. At the conclusion the operation I spoke to the patient daughter informed her of my findings. Postop instructions were given. She can weight-bear as tolerated. Total hip precautions. She will need rehab. Lovenox for DVT prophylaxis. Planned admission to monitored bed. Wounds are dry at the time of closure without any significant bleeding. Soft tissues were kept moist throughout the surgical procedure with irrigation. Components inserted were the Vinod LD fracture size 16 cemented stem with a distal cementralizer. A large cement restrictor a 28 mm +7 head with a 28 mm liner and a 48 mm outer diameter shell. I attest to the content of the Intraoperative Record and any orders documented therein. Any exceptions are noted below.
--- NOTE | 2022-02-05 17:36 | Operative Report ---
Post Operative Report Pre & Post Diagnosis Operation Date: 02/05/22 09:20 Pre-Op Diagnosis: Left hip fracture Post-Op Diagnosis: Left hip fracture I identified the patient and participated in the time-out.: Yes Procedure Operation Date: 02/05/22 09:20 Actual Procedures p Left Hip Hemiarthroplasty(Left) - Ivan Cha MD Surgeon Ivan Cha M.D. [employer] Supervisor aleksey harris. no resident or fellow available Estimated Blood Loss 50 Findings Consistent with Post-Op Diagnosis left femoral neck fracture Fluids 1 Liter Specimens femoral head Anesthesia Type General Description of Procedure Patient was taken to the operating room, placed under general anesthesia. Time out performed, prepped and draped in routine sterile fashion. I was present during the entire case and assisted with tissue retraction, implantation of hardware, closure and dressings, please see Dr. Cha's operative report for further detail. Patient was awakened and taken to the recovery room in stable condition. I attest to the content of the Intraoperative Record and any orders documented therein. Any exceptions are noted below.
--- NOTE | 2022-02-05 18:27 | Anesthesiology Progress Note ---
Date of Service February 05, 2022 Anesthesia Post Procedure Vital Signs Vital Signs: Temp Pulse Pulse Pulse Resp BP BP 02/05/22 17:55 83 16 110/61 02/05/22 17:45 83 17 110/64 02/05/22 18:15 37.2 C 84 19 122/56 L 02/05/22 18:05 37.2 C 83 19 100/68 02/05/22 17:35 88 16 111/62 02/05/22 17:28 36.4 C L 90 18 102/65 02/05/22 12:52 36.9 C 85 20 92/45 L 02/05/22 12:20 85 14 02/05/22 12:10 82 15 02/05/22 12:00 86 15 02/05/22 12:00 110/65 02/05/22 11:50 83 17 02/05/22 11:40 84 13 02/05/22 11:30 87 17 02/05/22 11:30 102/60 02/05/22 11:20 84 16 02/05/22 11:10 84 22 02/05/22 11:00 86 13 02/05/22 11:00 115/71 02/05/22 10:50 84 23 02/05/22 10:40 81 16 02/05/22 10:31 105/63 02/05/22 10:31 87 17 02/05/22 10:30 83 14 02/05/22 10:20 80 17 02/05/22 10:14 02/05/22 09:50 85 13 02/05/22 09:43 82 13 02/05/22 09:00 85 20 02/05/22 09:00 75/48 L 02/05/22 08:50 85 19 02/05/22 08:40 87 24 02/05/22 08:33 96/53 L 02/05/22 08:33 83 13 02/05/22 08:30 84 15 02/05/22 08:30 76/52 L 02/05/22 08:24 83 13 02/05/22 08:24 96/64 L 02/05/22 08:21 72/53 L 02/05/22 08:21 84 14 02/05/22 08:20 84 15 02/05/22 08:10 83 19 02/05/22 08:00 83 15 02/05/22 07:50 82 17 02/05/22 07:40 82 14 02/05/22 07:30 81 14 02/05/22 07:30 104/66 02/05/22 07:20 82 14 02/05/22 07:10 83 19 02/05/22 07:01 81 18 02/05/22 07:01 119/55 L 02/05/22 07:00 81 16 02/05/22 06:50 82 26 H 02/05/22 06:40 80 20 02/05/22 06:30 79 22 02/05/22 06:30 112/77 02/05/22 06:20 76 16 02/05/22 08:26 85 20 02/05/22 05:01 74 12 02/05/22 03:24 02/05/22 03:01 36.6 C 65 19 BP Pulse Ox O2 Del Method O2 Flow Rate 02/05/22 17:55 93 Oxymask 4 02/05/22 17:45 95 Oxymask 4 02/05/22 18:15 92 Nasal Cannula 3 02/05/22 18:05 91 Nasal Cannula 3 02/05/22 17:35 93 Oxymask 5 02/05/22 17:28 97 Oxymask 5 02/05/22 12:52 100 Nasal Cannula 3 02/05/22 12:20 96 02/05/22 12:10 98 02/05/22 12:00 98 02/05/22 12:00 02/05/22 11:50 99 02/05/22 11:40 98 02/05/22 11:30 95 02/05/22 11:30 02/05/22 11:20 99 02/05/22 11:10 98 02/05/22 11:00 97 02/05/22 11:00 02/05/22 10:50 98 02/05/22 10:40 89 L 02/05/22 10:31 02/05/22 10:31 94 02/05/22 10:30 93 02/05/22 10:20 100 02/05/22 10:14 94 02/05/22 09:50 02/05/22 09:43 96 02/05/22 09:00 93 02/05/22 09:00 02/05/22 08:50 97 02/05/22 08:40 98 02/05/22 08:33 02/05/22 08:33 99 02/05/22 08:30 97 02/05/22 08:30 02/05/22 08:24 97 02/05/22 08:24 02/05/22 08:21 02/05/22 08:21 91 02/05/22 08:20 93 02/05/22 08:10 95 02/05/22 08:00 94 02/05/22 07:50 96 02/05/22 07:40 96 02/05/22 07:30 91 02/05/22 07:30 02/05/22 07:20 96 02/05/22 07:10 97 02/05/22 07:01 97 02/05/22 07:01 02/05/22 07:00 91 02/05/22 06:50 94 02/05/22 06:40 94 02/05/22 06:30 91 02/05/22 06:30 02/05/22 06:20 95 02/05/22 08:26 96/64 L 98 Nasal Cannula 3 02/05/22 05:01 111/72 98 Nasal Cannula 3 02/05/22 03:24 97 Room Air 02/05/22 03:01 143/62 H 90 Room Air Pain Intensity Left Hip: Pain Intensity: 0 Transfer of Care Handoff Completed per policy Notes Mental Status: alert / awake / arousable Patient Amnestic to Procedure: Yes Nausea / Vomiting: adequately controlled Pain: adequately controlled Airway Patency, RR, SpO2: stable & adequate BP & HR: stable & adequate Hydration State: stable & adequate Anesthetic Complications: no major complications apparent
[2022-02-05] MEDS: SODIUM CHLORIDE 0.9% 1000ML 1,000 ML IV SCH (19:25)
[2022-02-05] MEDS: ATORVASTATIN 40 MG TAB PO SCH (19:26)
[2022-02-05] MEDS: LANTUS PER UNIT CHARGE SQ SCH ×2 (19:26→20:49)
[2022-02-05] MEDS: rifAXIMin 550 MG TABLET PO SCH ×2 (19:27→20:51)
[2022-02-05] MEDS: PANTOprazole 40 MG TAB PO SCH (19:27)
[2022-02-05] MEDS: METOPROLOL SUCC 50MG EXT REL TAB PO SCH (19:27)
[2022-02-05] MEDS: OXYBUTYNIN CHLORIDE XL 5 MG TABCR PO SCH (19:27)
[2022-02-05] MEDS: MoRPHine SULFATE CR 15 MG TABCR PO SCH ×2 (19:27→20:51)
[2022-02-05] MEDS: lamoTRIgine 25 MG TAB PO SCH (19:27)
[2022-02-05] MEDS: lamoTRIgine 100 MG TAB PO SCH ×2 (19:27→20:50)
[2022-02-05] MEDS: LEVOTHYROXINE SODIUM 88 MCG TABLET PO SCH (19:27)
[2022-02-05] MEDS: TAMSULOSIN HCL 0.4 MG CAP PO SCH (19:28)
[2022-02-05] MEDS: VENLAFAXINE HCL XR 150 MG CAPXR PO SCH (19:28)
[2022-02-05] MEDS: VENLAFAXINE HCL XR 75 MG CAPXR PO SCH (19:28)
[2022-02-05] MEDS: INSULIN ASPART PER UNIT SC SCH ×3 (19:29→20:49)
[2022-02-05] MEDS: ASPIRIN 81 MG ECTAB PO SCH (19:29)
[2022-02-05] MEDS: MONTELUKAST SODIUM 10 MG TABLET PO SCH (19:31)
[2022-02-05] MEDS: LACTULOSE SYRUP 30 GM/45 ML UDP PO SCH ×2 (19:31→20:48)
[2022-02-05] MEDS: ASCORBIC ACID 500 MG TAB PO SCH (20:49)
[2022-02-05] MEDS: ARIPIprazole 1 MG/ML ORAL SOLN 150 ML BTL PO SCH (20:49)
--- NOTE | 2022-02-05 22:08 | XRay Report ---
LEFT HIP 2 VIEWS CLINICAL HISTORY: Postoperative examination. FINDINGS: AP and crosstable lateral views of the left femur are compared to study dated 02/05/2022. A l eft hip arthroplasty is in near-anatomic alignment. No acute fracture is seen. Skin clips, soft tissu e edema, and subcutaneous gas overlying the left hip are expected postoperative changes. IMPRESSION: Expected postoperative findings status post left hip arthroplasty. No acute fracture is s een. Electronically signed by: Berto Snow M.D. 02/05/2022 10:06 PM
[2022-02-05] MEDS: ceFAZolin 2000MG 2,000 MG/15 ML SYR IV SCH (23:53)
[2022-02-06] MEDS: ACETAMINOPHEN 325 MG TAB PO PRN ×3 (03:38→18:00)
[2022-02-06] MEDS: oxyCODONE HCL IR 5 MG TAB (IMMEDIATE RELEASE) PO PRN ×3 (05:32→17:55)
[2022-02-06] MEDS: LEVOTHYROXINE SODIUM 88 MCG TABLET PO SCH (05:33)
[2022-02-06] MEDS: PANTOprazole 40 MG TAB PO SCH (05:34)
[2022-02-06] MEDS: ceFAZolin 2000MG 2,000 MG/15 ML SYR IV SCH (07:41)
[2022-02-06] MEDS: ENOXAPARIN INJ 30 MG/0.3 ML SYR SQ SCH ×2 (07:45→20:08)
[2022-02-06] MEDS: MoRPHine SULFATE CR 15 MG TABCR PO SCH ×2 (07:47→20:14)
[2022-02-06 08:00] LABS: Basophils # (auto) 0.04 K/uL (0-0.2); Basophils % (auto) 0.4 %; Eosinophils # (auto) 0.02 K/uL (0-0.50); Eosinophils % (auto) 0.2 %; Hematocrit (blood only) 26.8 % (34.1-44.9); Hemoglobin 8.4 g/dl (12.0-16.0); Lymphocytes # (auto) 1.08 K/uL (1.2-3.4); Lymphocytes % (auto) 10.5 %; Mean Corpuscular Hemoglobin 24.1 pg (25.0-34.0); Mean Corpuscular Hgb Conc 31.3 g/dL (32.0-36.0); Mean Corpuscular Volume 76.8 fL (80.0-100.0); Mean Platelet Volume 9.5 fL (9.4-12.3); Monocytes # (auto) 0.87 K/uL (0.24-0.82); Monocytes % (auto) 8.5 %; Neutrophils # (auto) 8.15 K/uL (1.4-6.5); Neutrophils % (auto) 79.4 %; Platelet Count 122 K/uL (130-400); RDW Coefficient of Variation 18.3 % (11.5-14.5); RDW Standard Deviation 50.1 fL (36.4-46.3); Red Blood Count 3.49 M/uL (3.93-5.22); White Blood Count 10.26 K/ul (4.8-10.8)
--- NOTE | 2022-02-06 08:10 | Hospitalist Progress Note ---
Date of Service February 06, 2022 Assessment & Plan (1) Hip fracture, left: Plan: Secondary to fall History ambulatory dysfunction/Qnsdgcs-Aqlez-Hnuvx disease Patient predisposed by lethargy secondary to multiple neuropsychotropic and narcotic medications Rule out hepatic encephalopathy as contributory factor to lethargy history NAFLD cirrhosis Medical telemetry given episodic lethargy and cardiac history Check ammonia level, facilitate lactulose and rifaximin Ammonia level wnl, cont. to monitor Appropriate to hold narcotics/neuropsychotropic meds for sedation confusion History ESBL E. coli UTI ongoing Ertapenem Rx Repeat UA negative Pt cont. to have intermittent fevers Continue ertapenem Obtain blood cultures Orthopedics consult Re: Left hip fracture ([facility] Orth[facility] as per family's request.) p Left Hip Hemiarthroplasty(Left) - Ivan Cha MD on 02/05/22 Tolerated procedure well Cardiology preop eval requested given RCRI of at least 3 points (Class IV risk) if surgery recommended and patient/family agreeable to procedural risks. Pt high risk for procedure not only d/t cardiac dz but her other med. condit ions. Chronic diastolic heart failure (EF 55 to 59%, TTE 09/2021), patient euvolemic hx CAD status post CABG/stent Moderate Hypertension, stable Hyperlipidemia, on statin Rx Acute blood loss anemia post-op vs. dilutional pre-op Hgb ~12, post-op ~8 cont. to monitor H&H, transfuse if Hgb <7.5 Bipolar disorder/OCD, at baseline DM2 insulin requiring, well-controlled as of recent hemoglobin A1c of 11 December 2021 Basal insulin adjusted for n.p.o. status, ISS BG goal 110-140 Chronic hyponatremia cont. to monitor Past history DVT as per records DVT prophylaxis. lovenox (per ortho) Full code Patient's daughters: Ms. Carolyn Burciaga, contact #[phone] Ms. Yarelis Burciaga, contact #[phone]. Admission and Anticipated Discharge Date Admission Date: February 05, 2022 Subjective Patient seen in follow-up for hip fracture, status postsurgical repair p Left Hip Hemiarthroplasty(Left) - Ivan Cha MD on 02/05/22 Currently lying in bed, in no acute distress She is able to answer simple questions appropriately, however cannot tell me the year or month Currently has no complaints, besides some pain in left hip Fever overnight Patient is on ertapenem Review of Systems Review of Systems: All systems reviewed & are unremarkable except as noted in Subjective Physical Exam Physical Exam: GENERAL: morbidly obese F, in NAD HEENT: NC/AT, Theodore palpebral conjunctivae NECK : Supple CHEST : Decreased breath sounds, no tenderness HEART : RRR, systolic murmur ABDOMEN: +bowel sounds, nontender, obese, soft SKIN: Normal color, warm EXTREMITIES : Minimal LE swelling, left hip tenderness (s/p surgery), does not move LLE (hx of CMT - baseline per ortho), moves RLE NEUROLOGIC : Awake, able to answer simple questions appropriately, however cannot tell me the year or month, no facial asymmetry, gait and stance not assessed Results & Data Results & Data ([facility]) Vital Signs (Past 12 Hours) Vital Signs Temp Pulse Pulse Resp BP Pulse Ox Pulse Ox 02/06/22 07:36 37.5 C 105 H 20 108/84 02/06/22 03:32 38.2 C H 100 H 20 125/75 94 02/05/22 22:17 98 H 02/05/22 23:36 37.2 C 98 H 19 103/66 95 02/05/22 22:25 02/05/22 22:00 94 02/05/22 21:29 37.1 C 96 H 16 91/61 L 92 02/05/22 20:20 36.8 C 93 H 16 101/67 91 O2 Del Method O2 Del Method O2 Flow Rate O2 Flow Rate 02/06/22 07:36 Nasal Cannula 2 02/06/22 03:32 Oxymask 5 02/05/22 22:17 02/05/22 23:36 Oxymask 5 02/05/22 22:25 Oxymask 5 02/05/22 22:00 Oxymask 5 02/05/22 21:29 Oxymask 5 02/05/22 20:20 Nasal Cannula, Oxymask 91 Laboratory Results 02/06/22 02/06/22 02/06/22 Range/Units 07:37 07:37 07:37 WBC (4.8-10.8) K/ul RBC (3.93-5.22) M/uL Hgb (12.0-16.0) g/dl Hct (34.1-44.9) % MCV (80.0-100.0) fL MCH (25.0-34.0) pg MCHC (32.0-36.0) g/dL RDW Std Deviation (36.4-46.3) fL RDW Coeff of Guillermo (11.5-14.5) % Plt Count (130-400) K/uL MPV (9.4-12.3) fL Immature Gran % (Auto) % Neut % (Auto) % Lymph % (Auto) % Boyle % (Auto) % Eos % (Auto) % Baso % (Auto) % Neut # (Auto) (1.4-6.5) K/uL Lymph # (Auto) (1.2-3.4) K/uL Boyle # (Auto) (0.24-0.82) K/uL Eos # (Auto) (0-0.50) K/uL Baso # (Auto) (0-0.2) K/uL Immature Gran # (Auto) (0.00-0.02) K/uL Sodium Pending Potassium Pending Chloride Pending Carbon Dioxide Pending Anion Gap Pending BUN Pending Creatinine Pending Est Cr Clr Drug Dosing Pending Est GFR ( Amer) Pending Est GFR (Non-Af Amer) Pending BUN/Creatinine Ratio Pending Glucose Pending POC Glucose 179 H (70-99) mg/dl Calcium Pending Ammonia (18-72) umol/L 25-OH Vitamin D Total Pending Blood Type Antibody Screen Antibody Identification Antibody ID Comment Antigen Identification Crossmatch 02/06/22 02/05/22 02/05/22 Range/Units 07:37 20:37 17:54 WBC 10.26 (4.8-10.8) K/ul RBC 3.49 L (3.93-5.22) M/uL Hgb 8.4 L D (12.0-16.0) g/dl Hct 26.8 L (34.1-44.9) % MCV 76.8 L (80.0-100.0) fL MCH 24.1 L (25.0-34.0) pg MCHC 31.3 L (32.0-36.0) g/dL RDW Std Deviation 50.1 H (36.4-46.3) fL RDW Coeff of Guillermo 18.3 H (11.5-14.5) % Plt Count 122 L (130-400) K/uL MPV 9.5 (9.4-12.3) fL Immature Gran % (Auto) 1.0 % Neut % (Auto) 79.4 % Lymph % (Auto) 10.5 % Boyle % (Auto) 8.5 % Eos % (Auto) 0.2 % Baso % (Auto) 0.4 % Neut # (Auto) 8.15 H (1.4-6.5) K/uL Lymph # (Auto) 1.08 L (1.2-3.4) K/uL Boyle # (Auto) 0.87 H (0.24-0.82) K/uL Eos # (Auto) 0.02 (0-0.50) K/uL Baso # (Auto) 0.04 (0-0.2) K/uL Immature Gran # (Auto) 0.10 H (0.00-0.02) K/uL Sodium Potassium Chloride Carbon Dioxide Anion Gap BUN Creatinine Est Cr Clr Drug Dosing Est GFR ( Amer) Est GFR (Non-Af Amer) BUN/Creatinine Ratio Glucose POC Glucose 159 H 133 H (70-99) mg/dl Calcium Ammonia (18-72) umol/L 25-OH Vitamin D Total Blood Type Antibody Screen Antibody Identification Antibody ID Comment Antigen Identification Crossmatch 02/05/22 02/05/22 Range/Units 08:11 08:11 WBC (4.8-10.8) K/ul RBC (3.93-5.22) M/uL Hgb (12.0-16.0) g/dl Hct (34.1-44.9) % MCV (80.0-100.0) fL MCH (25.0-34.0) pg MCHC (32.0-36.0) g/dL RDW Std Deviation (36.4-46.3) fL RDW Coeff of Guillermo (11.5-14.5) % Plt Count (130-400) K/uL MPV (9.4-12.3) fL Immature Gran % (Auto) % Neut % (Auto) % Lymph % (Auto) % Boyle % (Auto) % Eos % (Auto) % Baso % (Auto) % Neut # (Auto) (1.4-6.5) K/uL Lymph # (Auto) (1.2-3.4) K/uL Boyle # (Auto) (0.24-0.82) K/uL Eos # (Auto) (0-0.50) K/uL Baso # (Auto) (0-0.2) K/uL Immature Gran # (Auto) (0.00-0.02) K/uL Sodium Potassium Chloride Carbon Dioxide Anion Gap BUN Creatinine Est Cr Clr Drug Dosing Est GFR ( Amer) Est GFR (Non-Af Amer) BUN/Creatinine Ratio Glucose POC Glucose (70-99) mg/dl Calcium Ammonia 12.0 L (18-72) umol/L 25-OH Vitamin D Total Blood Type O Negative Antibody Screen POSITIVE A Antibody Identification Anti-D Antibody ID Comment Antigen Identification C Antigen - NEGATIVE Crossmatch See Detail Medications Administered Current Inpatient Medications Acetaminophen (Acetaminophen 325 Mg Tab) 325 mg PO Q6H PRN PRN Reason: Mild Pain Stop: 03/07/22 06:14 Last Admin: 02/06/22 03:38 Dose: 325 mg Aripiprazole (Aripiprazole 1 Mg/Ml Oral Soln 150 Ml Btl) 2 mg PO HS [facility] Stop: 03/07/22 20:59 Last Admin: 02/05/22 20:49 Dose: 2 mg Ascorbic Acid (Ascorbic Acid 500 Mg Tab) 500 mg PO BID [facility] Stop: 03/07/22 20:59 Last Admin: 02/05/22 20:49 Dose: 500 mg Aspirin (Aspirin 81 Mg Ectab) [facility] Stop: 03/07/22 11:29 Last Admin: 02/05/22 19:29 Dose: Not Given Atorvastatin Calcium (Atorvastatin 40 Mg Tab) 40 mg PO QAM [facility] Stop: 03/07/22 11:14 Last Admin: 02/05/22 19:26 Dose: Not Given Bisacodyl (Bisacodyl 10 Mg Supp) 10 mg [place] DAILY PRN PRN Reason: Constipation Stop: 03/07/22 10:49 Dextrose (Dextrose 50% 50 Ml Syringe) 25 - 50 ml IV UD PRN; Protocol PRN Reason: Hypoglycemia Protocol Stop: 03/07/22 10:49 Enoxaparin Sodium (Enoxaparin Inj 30 Mg/0.3 Ml Syr) 30 mg SQ Q12H [facility] Stop: 03/08/22 07:59 Glucagon (Glucagon For Inj 1 Mg Vial) 1 mg SQ UD PRN; Protocol PRN Reason: Hypoglycemia Protocol Stop: 03/07/22 10:49 Glucose (Glucose 40% Gel 15 Gm Tube) 15 - 30 gm PO UD PRN; Protocol PRN Reason: Hypoglycemia Protocol Stop: 03/07/22 10:49 Glucose (Glucose 10 Tab/Tube) 4 - 8 tab PO UD PRN; Protocol PRN Reason: Hypoglycemia Treatment Stop: 03/07/22 10:49 Promethazine HCl 12.5 mg/ (Sodium Chloride) 50.5 mls @ 202 mls/hr IV Q6H PRN PRN Reason: Nausea And Vomiting Stop: 03/07/22 06:14 Sodium Chloride (Nss 1000ml) 1,000 mls @ 15 mls/hr IV .Q24H [facility] Stop: 03/07/22 08:59 Last Admin: 02/05/22 19:25 Dose: Not Given Ertapenem 1,000 mg/ Syringe 10 mls @ 2 mls/min IV Q24H [facility]; Protocol Stop: 02/16/22 08:59 Insulin Aspart (Insulin Aspart Per Unit) 0 units SC ACHS [facility] Stop: 03/07/22 11:29 Last Admin: 02/05/22 20:49 Dose: 1 units Insulin Glargine (Lantus Per Unit Charge) 10 units SQ BID [facility] Stop: 03/07/22 11:14 Last Admin: 02/05/22 20:49 Dose: 10 units Lactulose (Lactulose Syrup 30 Gm/45 Ml Udp) 30 gm PO BID [facility] Stop: 03/07/22 11:29 Last Admin: 02/05/22 20:48 Dose: Not Given Lamotrigine (Lamotrigine 25 Mg Tab) 75 mg PO QAM [facility] Stop: 03/07/22 11:14 Last Admin: 02/05/22 19:27 Dose: Not Given Lamotrigine (Lamotrigine 100 Mg Tab) 100 mg PO QAM [facility] Stop: 03/07/22 11:14 Last Admin: 02/05/22 19:27 Dose: Not Given Lamotrigine (Lamotrigine 100 Mg Tab) 150 mg PO HS [facility] Stop: 03/07/22 20:59 Last Admin: 02/05/22 20:50 Dose: 150 mg Levothyroxine Sodium (Levothyroxine Sodium 88 Mcg Tablet) 88 mcg PO DAILYBB [facility] Stop: 03/07/22 11:14 Last Admin: 02/06/22 05:33 Dose: 88 mcg Lorazepam (Lorazepam 0.5 Mg Tab) 0.25 mg PO TID PRN PRN Reason: Anxiety Stop: 03/07/22 06:17 Metoprolol Succinate (Metoprolol Succ 50mg Ext Rel Tab) [facility] Stop: 03/07/22 11:14 Last Admin: 02/05/22 19:27 Dose: Not Given Miscellaneous (Carbohydrates For Hypoglycemia ) 15 - 30 gm PO UD PRN PRN Reason: Hypoglycemia Protocol Stop: 03/07/22 10:49 Montelukast Sodium (Montelukast Sodium 10 Mg Tablet) 10 mg PO DAILY@1600 [facility] Stop: 03/07/22 15:59 Last Admin: 02/05/22 19:31 Dose: Not Given Morphine Sulfate (Morphine Sulfate 4 Mg/Ml 1 Ml Carp\Vial) 4 mg IV Q4H PRN PRN Reason: Pain Stop: 02/19/22 06:14 Last Admin: 02/05/22 08:21 Dose: 4 mg Morphine Sulfate (Morphine Sulfate Cr 15 Mg Tabcr) 15 mg PO BID [facility] Stop: 02/19/22 11:14 Last Admin: 02/05/22 20:51 Dose: Not Given Naloxone HCl (Naloxone Hcl 0.4 Mg/1 Ml Vial/Carp) 0.1 mg IV UD PRN PRN Reason: Opiate Overdose Stop: 03/07/22 10:49 Oxybutynin Chloride (Oxybutynin Chloride Xl 5 Mg Tabcr) 10 mg PO [facility] Stop: 03/07/22 11:14 Last Admin: 02/05/22 19:27 Dose: Not Given Oxycodone HCl (Oxycodone Hcl Ir 5 Mg Tab (Immediate Release)) 5 mg PO Q4H PRN PRN Reason: Pain Stop: 02/19/22 06:14 Last Admin: 02/06/22 05:32 Dose: 5 mg Pantoprazole Sodium (Pantoprazole 40 Mg Tab) 40 mg PO DAILYBB [facility] Stop: 03/07/22 11:14 Last Admin: 02/06/22 05:34 Dose: 40 mg Rifaximin (Rifaximin 550 Mg Tablet) 550 mg PO BID [facility] Stop: 03/07/22 11:14 Last Admin: 02/05/22 20:51 Dose: 550 mg Tamsulosin HCl (Tamsulosin Hcl 0.4 Mg Cap) 0.4 mg PO QAM [facility] Stop: 03/07/22 11:14 Last Admin: 02/05/22 19:28 Dose: Not Given Venlafaxine HCl (Venlafaxine Hcl Xr 150 Mg Capxr) [facility] Stop: 03/07/22 11:14 Last Admin: 02/05/22 19:28 Dose: Not Given Venlafaxine HCl (Venlafaxine Hcl Xr 75 Mg Capxr) 75 mg PO QAM [facility] Stop: 03/07/22 11:14 Last Admin: 02/05/22 19:28 Dose: Not Given
[2022-02-06 08:31] LABS: BUN Creatinine Ratio 12.5 (10-20); Calcium 8.2 mg/dl (8.5-10.1); Creatinine Clr Calc Pharmacy 70.6 ml/min; Est GFR (African American) 68.5 ml/min; Est GFR (Non-African American) 59.1 ml/min; Potassium 4.2 mmol/L (3.5-5.1)
[2022-02-06] MEDS ORDERED: ERTAPENEM SODIUM 10 ML IV SCH (09:00)
[2022-02-06] MEDS: INSULIN ASPART PER UNIT SC SCH ×4 (09:58→20:10)
[2022-02-06] MEDS: LANTUS PER UNIT CHARGE SQ SCH ×2 (09:58→20:10)
[2022-02-06] MEDS: ATORVASTATIN 40 MG TAB PO SCH (10:01)
[2022-02-06] MEDS: LACTULOSE SYRUP 30 GM/45 ML UDP PO SCH ×2 (10:01→20:11)
[2022-02-06] MEDS: ASPIRIN 81 MG ECTAB PO SCH (10:01)
[2022-02-06] MEDS: ASCORBIC ACID 500 MG TAB PO SCH ×2 (10:01→20:09)
[2022-02-06] MEDS: lamoTRIgine 25 MG TAB PO SCH (10:02)
[2022-02-06] MEDS: METOPROLOL SUCC 50MG EXT REL TAB PO SCH (10:02)
[2022-02-06] MEDS: lamoTRIgine 100 MG TAB PO SCH ×2 (10:02→20:11)
[2022-02-06] MEDS: OXYBUTYNIN CHLORIDE XL 5 MG TABCR PO SCH (10:02)
[2022-02-06] MEDS: SODIUM CHLORIDE 0.9% 1000ML 1,000 ML IV SCH (10:03)
[2022-02-06] MEDS: TAMSULOSIN HCL 0.4 MG CAP PO SCH (10:03)
[2022-02-06] MEDS: VENLAFAXINE HCL XR 150 MG CAPXR PO SCH (10:03)
[2022-02-06] MEDS: VENLAFAXINE HCL XR 75 MG CAPXR PO SCH (10:03)
--- NOTE | 2022-02-06 10:04 | Orthopedic Progress Note ---
Date of Service February 06, 2022 Assessment & Plan (1) S/P hip hemiarthroplasty: Plan: Patient was seen in her room this morning. Temperature overnight reached a T-max of 38.2 around 3:30 AM. She is currently 37.5. Patient was encouraged to participate in PT today. She will need to be out of bed and at least transfer to a chair. Nursing staff are unsure of her baseline mental state. They will check with family members to see if her current level of confusion is consistent with baseline. We will continue to monitor. Continue hip precautions. Weightbearing as tolerated using a walker. She will need for braces for ambulation. Admission and Anticipated Discharge Date Admission Date: February 05, 2022 Subjective Patient is seen in her room this morning. Contact precautions are in place because of her urinary tract infection. She is 1 day status post left hip bipolar hemiarthroplasty. Patient is confused this morning. She is conversive and awake, but is confused. She is able to tell me that she has pain in the left hip. She can also tell me that she has not had breakfast yet. She denies any nausea, vomiting, chest pain, or shortness of breath. She denies any abdominal pain. No other complaints at this time. Physical Exam Physical Exam: General: Well-developed, well-nourished, obese elderly female, in no acute distress. Obvious discomfort. Laying in bed. Alert but not oriented. Unable to confirm her birthday. Skin: Fair turgor. No rashes. Surgical incision on the left hip as the Prevena wound VAC in place. There is scant drainage. There is nothing in the capsule. Musculoskeletal: Patient has left hip pain with any attempted motion of the left hip. Logrolling as well as hip flexion generate pain. Baseline foot drop unchanged. Neurologic: Gross sensation is intact across the foot and ankle by soft touch. Peripheral pulses are 2+. Results & Data ([facility]) Vital Signs (Past 12 Hours) Vital Signs Temp Pulse Pulse Resp BP Pulse Ox Pulse Ox 02/06/22 07:36 37.5 C 105 H 20 108/84 02/06/22 03:32 38.2 C H 100 H 20 125/75 94 02/05/22 22:17 98 H 02/05/22 23:36 37.2 C 98 H 19 103/66 95 02/05/22 22:25 02/05/22 22:00 94 O2 Del Method O2 Del Method O2 Flow Rate O2 Flow Rate 02/06/22 07:36 Nasal Cannula 2 02/06/22 03:32 Oxymask 5 02/05/22 22:17 02/05/22 23:36 Oxymask 5 02/05/22 22:25 Oxymask 5 02/05/22 22:00 Oxymask 5 Laboratory Results CBC obtained this morning shows a white count 10.26, hemoglobin 8.4 and hematocrit 26.8. Platelets 122,000. BMP is unremarkable. BUN of 12 with creatinine 0.96. Glucose 168.
[2022-02-06] MEDS: ERTAPENEM SODIUM 1,000 MG in SYRINGE 0 ML IV SCH (10:15)
[2022-02-06] MEDS: rifAXIMin 550 MG TABLET PO SCH ×2 (12:23→20:14)
--- NOTE | 2022-02-06 13:58 | Cardiology Progress Note ---
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 No new recommendations at this time. Admission and Anticipated Discharge Date Admission Date: February 05, 2022 Subjective The patient is resting comfortably. Review of Systems Review of Systems: Review of Systems: See HPI for pertinent positives. All other 10 point review of systems are negative. Physical Exam Physical Exam: General: no acute distress and stated age Head: normocephalic, no masses, lesions, tenderness or abnormalities Eyes: conjunctiva are pink and non-injected, sclera clear Neck: supple, no adenopathy, no bruits, normal jugular venous pulse, no hepatojugular reflux Chest: normal shape and normal respiratory effort Lungs: clear to auscultation and percussion Cardiac Exam: - regular rate & rhythm, no murmurs gallops or rubs - normal S1, normal S2 Pulses: 2(+) throughout Abdomen: abdomen soft, non-tender, no abnormal masses and no hepatosplenomegaly Musculoskeletal: no gait disturbance, no joint inflammation, no deforming arthritis Extremities: no edema and no cyanosis Neuro: grossly normal exam Results & Data ([facility]) Vital Signs (Past 12 Hours) Vital Signs Temp Pulse Resp BP Pulse Ox O2 Del Method O2 Flow Rate 02/06/22 11:48 37.1 C 106 H 18 102/56 L 93 Nasal Cannula 2 02/06/22 08:00 Nasal Cannula 2 02/06/22 07:36 37.5 C 105 H 20 108/84 Nasal Cannula 2 02/06/22 03:32 38.2 C H 100 H 20 125/75 94 Oxymask 5 Laboratory Results Laboratory Results - last 24 hr 02/05/22 02/05/22 02/06/22 17:54 20:37 07:37 WBC 10.26 RBC 3.49 L Hgb 8.4 L D Hct 26.8 L MCV 76.8 L MCH 24.1 L MCHC 31.3 L RDW Std Deviation 50.1 H RDW Coeff of Guillermo 18.3 H Plt Count 122 L MPV 9.5 Immature Gran % (Auto) 1.0 Neut % (Auto) 79.4 Lymph % (Auto) 10.5 [place] % (Auto) 8.5 Eos % (Auto) 0.2 Baso % (Auto) 0.4 Neut # (Auto) 8.15 H Lymph # (Auto) 1.08 L [place] # (Auto) 0.87 H Eos # (Auto) 0.02 Baso # (Auto) 0.04 Immature Gran # (Auto) 0.10 H Sodium Potassium Chloride Carbon Dioxide Anion Gap BUN Creatinine Est Cr Clr Drug Dosing Est GFR ( Amer) Est GFR (Non-Af Amer) BUN/Creatinine Ratio Glucose POC Glucose 133 H 159 H Calcium Ammonia 25-OH Vitamin D Total 02/06/22 02/06/22 02/06/22 07:37 07:37 07:37 WBC RBC Hgb Hct MCV MCH MCHC RDW Std Deviation RDW Coeff of Guillermo Plt Count MPV Immature Gran % (Auto) Neut % (Auto) Lymph % (Auto) [place] % (Auto) Eos % (Auto) Baso % (Auto) Neut # (Auto) Lymph # (Auto) [place] # (Auto) Eos # (Auto) Baso # (Auto) Immature Gran # (Auto) Sodium 134 L Potassium 4.2 Chloride 102 Carbon Dioxide 26 Anion Gap 6 BUN 12 Creatinine 0.96 Est Cr Clr Drug Dosing 70.6 Est GFR ( Amer) 68.5 Est GFR (Non-Af Amer) 59.1 BUN/Creatinine Ratio 12.5 Glucose 168 H POC Glucose 179 H Calcium 8.2 L Ammonia 25-OH Vitamin D Total 53.5 02/06/22 02/06/22 11:26 11:41 WBC RBC Hgb Hct MCV MCH MCHC RDW Std Deviation RDW Coeff of Guillermo Plt Count MPV Immature Gran % (Auto) Neut % (Auto) Lymph % (Auto) [place] % (Auto) Eos % (Auto) Baso % (Auto) Neut # (Auto) Lymph # (Auto) [place] # (Auto) Eos # (Auto) Baso # (Auto) Immature Gran # (Auto) Sodium Potassium Chloride Carbon Dioxide Anion Gap BUN Creatinine Est Cr Clr Drug Dosing Est GFR ( Amer) Est GFR (Non-Af Amer) BUN/Creatinine Ratio Glucose POC Glucose 205 H Calcium Ammonia 33.0 25-OH Vitamin D Total Medications Administered Current Inpatient Medications Acetaminophen (Acetaminophen 325 Mg Tab) 325 mg PO Q6H PRN PRN Reason: Mild Pain Stop: 03/07/22 06:14 Last Admin: 02/06/22 10:00 Dose: 325 mg Aripiprazole (Aripiprazole 1 Mg/Ml Oral Soln 150 Ml Btl) 2 mg PO HS [facility] Stop: 03/07/22 20:59 Last Admin: 02/05/22 20:49 Dose: 2 mg Ascorbic Acid (Ascorbic Acid 500 Mg Tab) 500 mg PO BID [facility] Stop: 03/07/22 20:59 Last Admin: 02/06/22 10:01 Dose: 500 mg Aspirin (Aspirin 81 Mg Ectab) 81 mg PO QAM [facility] Stop: 03/07/22 11:29 Last Admin: 02/06/22 10:01 Dose: 81 mg Atorvastatin Calcium ([facility]atin 40 Mg Tab) [facility] Stop: 03/07/22 11:14 Last Admin: 02/06/22 10:01 Dose: 40 mg Bisacodyl (Bisacodyl 10 Mg Supp) 10 mg [place] DAILY PRN PRN Reason: Constipation Stop: 03/07/22 10:49 Dextrose (Dextrose 50% 50 Ml Syringe) 25 - 50 ml IV UD PRN; Protocol PRN Reason: Hypoglycemia Protocol Stop: 03/07/22 10:49 Enoxaparin Sodium (Enoxaparin Inj 30 Mg/0.3 Ml Syr) 30 mg SQ Q12H [facility] Stop: 03/08/22 07:59 Last Admin: 02/06/22 07:45 Dose: 30 mg Glucagon (Glucagon For Inj 1 Mg Vial) 1 mg SQ UD PRN; Protocol PRN Reason: Hypoglycemia Protocol Stop: 03/07/22 10:49 Glucose (Glucose 40% Gel 15 Gm Tube) 15 - 30 gm PO UD PRN; Protocol PRN Reason: Hypoglycemia Protocol Stop: 03/07/22 10:49 Glucose (Glucose 10 Tab/Tube) 4 - 8 tab PO UD PRN; Protocol PRN Reason: Hypoglycemia Treatment Stop: 03/07/22 10:49 Promethazine HCl 12.5 mg/ (Sodium Chloride) 50.5 mls @ 202 mls/hr IV Q6H PRN PRN Reason: Nausea And Vomiting Stop: 03/07/22 06:14 Sodium Chloride (Nss 1000ml) 1,000 mls @ 15 mls/hr IV .Q24H [facility] Stop: 03/07/22 08:59 Last Admin: 02/06/22 10:03 Dose: 15 mls/hr Ertapenem 1,000 mg/ Syringe 10 mls @ 2 mls/min IV Q24H [facility]; Protocol Stop: 02/16/22 08:59 Last Admin: 02/06/22 10:15 Dose: 2 mls/min Insulin Aspart (Insulin Aspart Per Unit) 0 units SC ACHS [facility] Stop: 03/07/22 11:29 Last Admin: 02/06/22 12:35 Dose: 3 units Insulin Glargine (Lantus Per Unit Charge) 10 units SQ BID [facility] Stop: 03/07/22 11:14 Last Admin: 02/06/22 09:58 Dose: 10 units Lactulose (Lactulose Syrup 30 Gm/45 Ml Udp) 30 gm PO BID [facility] Stop: 03/07/22 11:29 Last Admin: 02/06/22 10:01 Dose: 30 gm Lamotrigine (Lamotrigine 25 Mg Tab) 75 mg PO QAM [facility] Stop: 03/07/22 11:14 Last Admin: 02/06/22 10:02 Dose: 75 mg Lamotrigine (Lamotrigine 100 Mg Tab) 100 mg PO QAM [facility] Stop: 03/07/22 11:14 Last Admin: 02/06/22 10:02 Dose: 100 mg Lamotrigine (Lamotrigine 100 Mg Tab) 150 mg PO HS [facility] Stop: 03/07/22 20:59 Last Admin: 02/05/22 20:50 Dose: 150 mg Levothyroxine Sodium (Levothyroxine Sodium 88 Mcg Tablet) 88 mcg PO DAILYBB [facility] Stop: 03/07/22 11:14 Last Admin: 02/06/22 05:33 Dose: 88 mcg Lorazepam (Lorazepam 0.5 Mg Tab) 0.25 mg PO TID PRN PRN Reason: Anxiety Stop: 03/07/22 06:17 Metoprolol Succinate (Metoprolol Succ 50mg Ext Rel Tab) 50 mg PO QAM [facility] Stop: 03/07/22 11:14 Last Admin: 02/06/22 10:02 Dose: 50 mg Miscellaneous (Carbohydrates For Hypoglycemia ) 15 - 30 gm PO UD PRN PRN Reason: Hypoglycemia Protocol Stop: 03/07/22 10:49 Montelukast Sodium (Montelukast Sodium 10 Mg Tablet) 10 mg PO DAILY@1600 [facility] Stop: 03/07/22 15:59 Last Admin: 02/05/22 19:31 Dose: Not Given Morphine Sulfate (Morphine Sulfate 4 Mg/Ml 1 Ml Carp\Vial) 4 mg IV Q4H PRN PRN Reason: Pain Stop: 02/19/22 06:14 Last Admin: 02/05/22 08:21 Dose: 4 mg Morphine Sulfate (Morphine Sulfate Cr 15 Mg Tabcr) 15 mg PO BID [facility] Stop: 02/19/22 11:14 Last Admin: 02/06/22 07:47 Dose: Not Given Naloxone HCl (Naloxone Hcl 0.4 Mg/1 Ml Vial/Carp) 0.1 mg IV UD PRN PRN Reason: Opiate Overdose Stop: 03/07/22 10:49 Oxybutynin Chloride (Oxybutynin Chloride Xl 5 Mg Tabcr) 10 mg PO QAM [facility] Stop: 03/07/22 11:14 Last Admin: 02/06/22 10:02 Dose: 10 mg Oxycodone HCl (Oxycodone Hcl Ir 5 Mg Tab (Immediate Release)) 5 mg PO Q4H PRN PRN Reason: Pain Stop: 02/19/22 06:14 Last Admin: 02/06/22 12:36 Dose: 5 mg Pantoprazole Sodium (Pantoprazole 40 Mg Tab) 40 mg PO DAILYBB [facility] Stop: 03/07/22 11:14 Last Admin: 02/06/22 05:34 Dose: 40 mg Rifaximin (Rifaximin 550 Mg Tablet) 550 mg PO BID [facility] Stop: 03/07/22 11:14 Last Admin: 02/06/22 12:23 Dose: 550 mg Tamsulosin HCl (Tamsulosin Hcl 0.4 Mg Cap) 0.4 mg PO QAM [facility] Stop: 03/07/22 11:14 Last Admin: 02/06/22 10:03 Dose: 0.4 mg Venlafaxine HCl (Venlafaxine Hcl Xr 150 Mg Capxr) 150 mg PO QAM [facility] Stop: 03/07/22 11:14 Last Admin: 02/06/22 10:03 Dose: 150 mg Venlafaxine HCl (Venlafaxine Hcl Xr 75 Mg Capxr) 75 mg PO QAM [facility] Stop: 03/07/22 11:14 Last Admin: 02/06/22 10:03 Dose: 75 mg
[2022-02-06 16:30] LABS: Hematocrit (blood only) 24.6 % (34.1-44.9); Hemoglobin 7.7 g/dl (12.0-16.0)
[2022-02-06] MEDS: MONTELUKAST SODIUM 10 MG TABLET PO SCH (17:55)
[2022-02-06] MEDS: ARIPIprazole 1 MG/ML ORAL SOLN 150 ML BTL PO SCH (20:09)
[2022-02-07] MEDS: PANTOprazole 40 MG TAB PO SCH (05:47)
[2022-02-07] MEDS: LEVOTHYROXINE SODIUM 88 MCG TABLET PO SCH (05:47)
[2022-02-07] MEDS: oxyCODONE HCL IR 5 MG TAB (IMMEDIATE RELEASE) PO PRN (05:49)
[2022-02-07 07:46] LABS: Hematocrit (blood only) 23.3 % (34.1-44.9); Hemoglobin 7.4 g/dl (12.0-16.0); Mean Corpuscular Hgb Conc 31.8 g/dL (32.0-36.0); Mean Corpuscular Volume 75.6 fL (80.0-100.0); Mean Platelet Volume 10.3 fL (9.4-12.3); Platelet Count 113 K/uL (130-400); RDW Coefficient of Variation 18.5 % (11.5-14.5); Red Blood Count 3.08 M/uL (3.93-5.22); White Blood Count 9.32 K/ul (4.8-10.8)
[2022-02-07] MEDS: ACETAMINOPHEN 325 MG TAB PO PRN (08:04)
[2022-02-07] MEDS: ASCORBIC ACID 500 MG TAB PO SCH (08:04)
[2022-02-07] MEDS: ENOXAPARIN INJ 30 MG/0.3 ML SYR SQ SCH ×2 (08:04→21:56)
[2022-02-07] MEDS: LACTULOSE SYRUP 30 GM/45 ML UDP PO SCH ×2 (08:04→22:09)
[2022-02-07] MEDS: lamoTRIgine 25 MG TAB PO SCH (08:05)
[2022-02-07] MEDS: TAMSULOSIN HCL 0.4 MG CAP PO SCH (08:06)
[2022-02-07] MEDS: VENLAFAXINE HCL XR 150 MG CAPXR PO SCH (08:06)
[2022-02-07] MEDS: METOPROLOL SUCC 50MG EXT REL TAB PO SCH (08:06)
[2022-02-07] MEDS: ASPIRIN 81 MG ECTAB PO SCH (08:06)
[2022-02-07] MEDS: ATORVASTATIN 40 MG TAB PO SCH (08:06)
[2022-02-07] MEDS: rifAXIMin 550 MG TABLET PO SCH ×2 (08:06→21:59)
[2022-02-07] MEDS: OXYBUTYNIN CHLORIDE XL 5 MG TABCR PO SCH (08:06)
[2022-02-07] MEDS: MoRPHine SULFATE CR 15 MG TABCR PO SCH ×2 (08:07→22:09)
[2022-02-07] MEDS: VENLAFAXINE HCL XR 75 MG CAPXR PO SCH (08:08)
[2022-02-07] MEDS: lamoTRIgine 100 MG TAB PO SCH (08:18)
[2022-02-07] MEDS: ERTAPENEM SODIUM 1,000 MG in SYRINGE 0 ML IV SCH (08:19)
[2022-02-07] MEDS: INSULIN ASPART PER UNIT SC SCH ×4 (08:40→22:10)
--- NOTE | 2022-02-07 08:42 | Hospitalist Progress Note ---
Date of Service February 07, 2022 Assessment & Plan (1) Hip fracture, left: Plan: Secondary to fall History ambulatory dysfunction/Tadxuxd-Gbljz-Gqchh disease Patient predisposed by lethargy secondary to multiple neuropsychotropic and narcotic medications Rule out hepatic encephalopathy as contributory factor to lethargy history NAFLD cirrhosis Medical telemetry given episodic lethargy and cardiac history Check ammonia level, facilitate lactulose and rifaximin Ammonia level wnl, cont. to monitor Appropriate to hold narcotics/neuropsychotropic meds for sedation confusion History ESBL E. coli UTI ongoing Ertapenem Rx Repeat UA negative Pt cont. to have intermittent fevers Continue ertapenem, added doxy for now blood cultures - pending Orthopedics consult Re: Left hip fracture ([facility] as per family's request.) p Left Hip Hemiarthroplasty(Left) - Ivan Cha MD on 02/05/22 Tolerated procedure well Cardiology preop eval requested given RCRI of at least 3 points (Class IV risk) if surgery recommended and patient/family agreeable to procedural risks. Pt high risk for procedure not only d/t cardiac dz but her other med. conditions. Chronic diastolic heart failure (EF 55 to 59%, TTE 09/2021), patient euvolemic hx CAD status post CABG/stent Moderate Hypertension, stable Hyperlipidemia, on statin Rx Acute blood loss anemia post-op vs. dilutional pre-op Hgb ~12, post-op ~8 cont. to monitor H&H, transfuse if Hgb <7.5 Bipolar disorder/OCD, at baseline DM2 insulin requiring, well-controlled as of recent hemoglobin A1c of 11 December 2021 Basal insulin adjusted for n.p.o. status, ISS BG goal 110-140 Chronic hyponatremia cont. to monitor Past history DVT as per records DVT prophylaxis. lovenox (per ortho) Full code Patient's daughters: Ms. Carolyn Burciaga, contact #[phone] Ms. Yarelis Burciaga, contact #[phone]. Admission and Anticipated Discharge Date Admission Date: February 05, 2022 Subjective Patient seen in follow-up for hip fracture, status postsurgical repair p Left Hip Hemiarthroplasty(Left) - Ivan Cha MD on 02/05/22 Currently lying in bed, in no acute distress She is able to answer some simple questions appropriately, however appears lethargic Currently has no complaints, besides some pain in left hip Cont. to have low grade fever Patient is on ertapenem Review of Systems Review of Systems: All systems reviewed & are unremarkable except as noted in Subjective Physical Exam Physical Exam: GENERAL: morbidly obese F, in NAD, on suppl. O2 HEENT: NC/AT, [place] palpebral conjunctivae NECK : Supple CHEST : Decreased breath sounds, + crackles, no wheezing HEART : RRR, systolic murmur ABDOMEN: +bowel sounds, nontender, obese, soft : mejia catheter placed SKIN: Normal color, warm EXTREMITIES : Minimal LE swelling, left hip tenderness (s/p surgery), does not move LLE (hx of CMT - baseline per ortho), moves RLE NEUROLOGIC : Awake, able to answer some simple questions appropriately, lethargic, no facial asymmetry, gait and stance not assessed Results & Data Results & Data ([facility]) Vital Signs (Past 12 Hours) Vital Signs Temp Pulse Pulse Resp BP Pulse Ox O2 Del Method 02/07/22 07:39 37.8 C H 95 H 18 106/66 92 Nasal Cannula 02/07/22 03:00 37.8 C H 102 H 20 106/66 94 Nasal Cannula 02/06/22 22:16 102 H 02/06/22 23:49 37.4 C 102 H 20 115/68 92 Nasal Cannula 02/06/22 22:48 Nasal Cannula O2 Flow Rate 02/07/22 07:39 3 02/07/22 03:00 2 02/06/22 22:16 02/06/22 23:49 2 02/06/22 22:48 2 Laboratory Results 02/07/22 02/07/22 02/07/22 Range/Units 07:54 07:32 07:32 WBC (4.8-10.8) K/ul RBC (3.93-5.22) M/uL Hgb (12.0-16.0) g/dl Hct (34.1-44.9) % MCV (80.0-100.0) fL MCH (25.0-34.0) pg MCHC (32.0-36.0) g/dL RDW Std Deviation (36.4-46.3) fL RDW Coeff of Guillermo (11.5-14.5) % Plt Count (130-400) K/uL MPV (9.4-12.3) fL Sodium 128 L (136-145) mmol/L Potassium 4.2 (3.5-5.1) mmol/L Chloride 96 L (98-107) mmol/L Carbon Dioxide 27 (21-32) mmol/L Anion Gap 5 (3-11) BUN 14 (6-23) mg/dl Creatinine 1.00 (0.6-1.2) mg/dl Est Cr Clr Drug Dosing 67.3 ml/min Est GFR ( Amer) 65.2 ml/min Est GFR (Non-Af Amer) 56.2 ml/min BUN/Creatinine Ratio 14.0 (10-20) Glucose 146 H (70-99(Fasting)) mg/dl POC Glucose 156 H (70-99) mg/dl Calcium 8.3 L (8.5-10.1) mg/dl Phosphorus 2.5 (2.5-4.9) mg/dl Magnesium 1.9 (1.7-2.4) mg/dl Total Bilirubin 1.3 H (0.2-1.0) mg/dl AST 35 (13-39) U/L ALT 10 (7-52) U/L Alkaline Phosphatase 136 H (34-104) U/L Ammonia 18.0 (18-72) umol/L Total Protein 5.4 L (6.0-8.3) gm/dl Albumin 2.9 L (3.4-5.0) gm/dl Globulin 2.5 (2.5-4.0) gm/dl Albumin/Globulin Ratio 1.2 (0.9-2) 02/07/22 02/06/22 02/06/22 Range/Units 07:32 20:00 16:30 WBC 9.32 (4.8-10.8) K/ul RBC 3.08 L (3.93-5.22) M/uL Hgb 7.4 L (12.0-16.0) g/dl Hct 23.3 L (34.1-44.9) % MCV 75.6 L (80.0-100.0) fL MCH 24.0 L (25.0-34.0) pg MCHC 31.8 L (32.0-36.0) g/dL RDW Std Deviation 50.0 H (36.4-46.3) fL RDW Coeff of Guillermo 18.5 H (11.5-14.5) % Plt Count 113 L (130-400) K/uL MPV 10.3 (9.4-12.3) fL Sodium (136-145) mmol/L Potassium (3.5-5.1) mmol/L Chloride (98-107) mmol/L Carbon Dioxide (21-32) mmol/L Anion Gap (3-11) BUN (6-23) mg/dl Creatinine (0.6-1.2) mg/dl Est Cr Clr Drug Dosing ml/min Est GFR ( Amer) ml/min Est GFR (Non-Af Amer) ml/min BUN/Creatinine Ratio (10-20) Glucose (70-99(Fasting)) mg/dl POC Glucose 219 H 173 H (70-99) mg/dl Calcium (8.5-10.1) mg/dl Phosphorus (2.5-4.9) mg/dl Magnesium (1.7-2.4) mg/dl Total Bilirubin (0.2-1.0) mg/dl AST (13-39) U/L ALT (7-52) U/L Alkaline Phosphatase (34-104) U/L Ammonia (18-72) umol/L Total Protein (6.0-8.3) gm/dl Albumin (3.4-5.0) gm/dl Globulin (2.5-4.0) gm/dl Albumin/Globulin Ratio (0.9-2) 02/06/22 02/06/22 02/06/22 Range/Units 16:15 11:41 11:26 WBC (4.8-10.8) K/ul RBC (3.93-5.22) M/uL Hgb 7.7 L (12.0-16.0) g/dl Hct 24.6 L (34.1-44.9) % MCV (80.0-100.0) fL MCH (25.0-34.0) pg MCHC (32.0-36.0) g/dL RDW Std Deviation (36.4-46.3) fL RDW Coeff of Guillermo (11.5-14.5) % Plt Count (130-400) K/uL MPV (9.4-12.3) fL Sodium (136-145) mmol/L Potassium (3.5-5.1) mmol/L Chloride (98-107) mmol/L Carbon Dioxide (21-32) mmol/L Anion Gap (3-11) BUN (6-23) mg/dl Creatinine (0.6-1.2) mg/dl Est Cr Clr Drug Dosing ml/min Est GFR ( Amer) ml/min Est GFR (Non-Af Amer) ml/min BUN/Creatinine Ratio (10-20) Glucose (70-99(Fasting)) mg/dl POC Glucose 205 H (70-99) mg/dl Calcium (8.5-10.1) mg/dl Phosphorus (2.5-4.9) mg/dl Magnesium (1.7-2.4) mg/dl Total Bilirubin (0.2-1.0) mg/dl AST (13-39) U/L ALT (7-52) U/L Alkaline Phosphatase (34-104) U/L Ammonia 33.0 (18-72) umol/L Total Protein (6.0-8.3) gm/dl Albumin (3.4-5.0) gm/dl Globulin (2.5-4.0) gm/dl Albumin/Globulin Ratio (0.9-2) Medications Administered Current Inpatient Medications Acetaminophen (Acetaminophen 325 Mg Tab) 325 mg PO Q6H PRN PRN Reason: Mild Pain Stop: 03/07/22 06:14 Last Admin: 02/07/22 08:04 Dose: 325 mg Aripiprazole (Aripiprazole 1 Mg/Ml Oral Soln 150 Ml Btl) 2 mg PO HS [facility] Stop: 03/07/22 20:59 Last Admin: 02/06/22 20:09 Dose: 2 mg Ascorbic Acid (Ascorbic Acid 500 Mg Tab) 500 mg PO BID [facility] Stop: 03/07/22 20:59 Last Admin: 02/07/22 08:04 Dose: 500 mg Aspirin (Aspirin 81 Mg Ectab) [facility]: 03/07/22 11:29 Last Admin: 02/07/22 08:06 Dose: 81 mg Atorvastatin Calcium (Atorvastatin 40 Mg Tab) [facility] Stop: 03/07/22 11:14 Last Admin: 02/07/22 08:06 Dose: 40 mg Bisacodyl (Bisacodyl 10 Mg Supp) [address] DAILY PRN PRN Reason: Constipation Stop: 03/07/22 10:49 Dextrose (Dextrose 50% 50 Ml Syringe) 25 - 50 ml IV UD PRN; Protocol PRN Reason: Hypoglycemia Protocol Stop: 03/07/22 10:49 Enoxaparin Sodium (Enoxaparin Inj 30 Mg/0.3 Ml Syr) 30 mg SQ Q12H [facility] Stop: 03/08/22 07:59 Last Admin: 02/07/22 08:04 Dose: 30 mg Glucagon (Glucagon For Inj 1 Mg Vial) 1 mg SQ UD PRN; Protocol PRN Reason: Hypoglycemia Protocol Stop: 03/07/22 10:49 Glucose (Glucose 40% Gel 15 Gm Tube) 15 - 30 gm PO UD PRN; Protocol PRN Reason: Hypoglycemia Protocol Stop: 03/07/22 10:49 Glucose (Glucose 10 Tab/Tube) 4 - 8 tab PO UD PRN; Protocol PRN Reason: Hypoglycemia Treatment Stop: 03/07/22 10:49 Promethazine HCl 12.5 mg/ (Sodium Chloride) 50.5 mls @ 202 mls/hr IV Q6H PRN PRN Reason: Nausea And Vomiting Stop: 03/07/22 06:14 Ertapenem 1,000 mg/ Syringe 10 mls @ 2 mls/min IV Q24H [facility]; Protocol Stop: 02/16/22 08:59 Last Admin: 02/07/22 08:19 Dose: 2 mls/min Insulin Aspart (Insulin Aspart Per Unit) 0 units SC ACHS [facility] Stop: 03/07/22 11:29 Last Admin: 02/06/22 20:10 Dose: 4 units Insulin Glargine (Lantus Per Unit Charge) 10 units SQ BID [facility] Stop: 03/07/22 11:14 Last Admin: 02/06/22 20:10 Dose: 10 units Lactulose (Lactulose Syrup 30 Gm/45 Ml Udp) 30 gm PO BID [facility] Stop: 03/07/22 11:29 Last Admin: 02/07/22 08:04 Dose: 30 gm Lamotrigine (Lamotrigine 25 Mg Tab) 75 mg PO QAM [facility] Stop: 03/07/22 11:14 Last Admin: 02/07/22 08:05 Dose: 75 mg Lamotrigine (Lamotrigine 100 Mg Tab) [facility] Stop: 03/07/22 11:14 Last Admin: 02/07/22 08:18 Dose: 100 mg Lamotrigine (Lamotrigine 100 Mg Tab) 150 mg PO HS [facility] Stop: 03/07/22 20:59 Last Admin: 02/06/22 20:11 Dose: 150 mg Levothyroxine Sodium (Levothyroxine Sodium 88 Mcg Tablet) 88 mcg PO DAILYBB [facility] Stop: 03/07/22 11:14 Last Admin: 02/07/22 05:47 Dose: 88 mcg Lorazepam (Lorazepam 0.5 Mg Tab) 0.25 mg PO TID PRN PRN Reason: Anxiety Stop: 03/07/22 06:17 Metoprolol Succinate (Metoprolol Succ 50mg Ext Rel Tab) 50 mg PO [facility] Stop: 03/07/22 11:14 Last Admin: 02/07/22 08:06 Dose: 50 mg Miscellaneous (Carbohydrates For Hypoglycemia ) 15 - 30 gm PO UD PRN PRN Reason: Hypoglycemia Protocol Stop: 03/07/22 10:49 Montelukast Sodium (Montelukast Sodium 10 Mg Tablet) 10 mg PO DAILY@1600 [facility] Stop: 03/07/22 15:59 Last Admin: 02/06/22 17:55 Dose: 10 mg Morphine Sulfate (Morphine Sulfate 4 Mg/Ml 1 Ml Carp\Vial) 4 mg IV Q4H PRN PRN Reason: Pain Stop: 02/19/22 06:14 Last Admin: 02/05/22 08:21 Dose: 4 mg Morphine Sulfate (Morphine Sulfate Cr 15 Mg Tabcr) 15 mg PO BID [facility] Stop: 02/19/22 11:14 Last Admin: 02/07/22 08:07 Dose: Not Given Naloxone HCl (Naloxone Hcl 0.4 Mg/1 Ml Vial/Carp) 0.1 mg IV UD PRN PRN Reason: Opiate Overdose Stop: 03/07/22 10:49 Oxybutynin Chloride (Oxybutynin Chloride Xl 5 Mg Tabcr) 10 mg PO QAM [facility] Stop: 03/07/22 11:14 Last Admin: 02/07/22 08:06 Dose: 10 mg Oxycodone HCl (Oxycodone Hcl Ir 5 Mg Tab (Immediate Release)) 5 mg PO Q4H PRN PRN Reason: Pain Stop: 02/19/22 06:14 Last Admin: 02/07/22 05:49 Dose: 5 mg Pantoprazole Sodium (Pantoprazole 40 Mg Tab) 40 mg PO DAILYBB [facility] Stop: 03/07/22 11:14 Last Admin: 02/07/22 05:47 Dose: 40 mg Rifaximin (Rifaximin 550 Mg Tablet) 550 mg PO BID [facility] Stop: 03/07/22 11:14 Last Admin: 02/07/22 08:06 Dose: 550 mg Tamsulosin HCl (Tamsulosin Hcl 0.4 Mg Cap) [facility] Stop: 03/07/22 11:14 Last Admin: 02/07/22 08:06 Dose: 0.4 mg Venlafaxine HCl (Venlafaxine Hcl Xr 150 Mg Capxr) 150 mg PO QAM [facility] Stop: 03/07/22 11:14 Last Admin: 02/07/22 08:06 Dose: 150 mg Venlafaxine HCl (Venlafaxine Hcl Xr 75 Mg Capxr) [facility]: 03/07/22 11:14 Last Admin: 02/07/22 08:08 Dose: 75 mg
[2022-02-07 09:06] LABS: Albumin Globulin Ratio 1.2 (0.9-2); Albumin Level 2.9 gm/dl (3.4-5.0); Bilirubin,Total 1.3 mg/dl (0.2-1.0); Calcium 8.3 mg/dl (8.5-10.1); Creatinine Clr Calc Pharmacy 67.3 ml/min; Est GFR (African American) 65.2 ml/min; Est GFR (Non-African American) 56.2 ml/min; Globulin 2.5 gm/dl (2.5-4.0); Magnesium 1.9 mg/dl (1.7-2.4); Phosphorus 2.5 mg/dl (2.5-4.9); Potassium 4.2 mmol/L (3.5-5.1); Total Protein 5.4 gm/dl (6.0-8.3)
[2022-02-07] MEDS ORDERED: FUROSEMIDE INJ 20 MG/2 ML VIAL IV ONE ×2 (09:06→17:15)
--- NOTE | 2022-02-07 09:06 | XRay Report ---
XR chest 1V portable HISTORY: 71 years-old Female hypoxia acute hypoxia COMPARISON: Chest radiograph 02/05/2022 TECHNIQUE: Portable AP view of the chest FINDINGS: The cardiac silhouette is enlarged. Prior median sternotomy. The patient is rotated. Atherosclerosis of the thoracic aorta. Unchanged right hemidiaphragmatic elevation. Mild pulmonary vascular congestio n. Linear right lung base opacities. Degenerative changes of the shoulders and spine with healed righ t-sided rib fractures. Cholecystectomy. IMPRESSION: 1. Cardiomegaly with pulmonary vascular congestion. 2. Unchanged right hemidiaphragmatic elevation with mild right lung base atelectasis. ACT 112: Negative or not required by law. The above report was generated using voice recognition software. It may contain grammatical, syntax o r spelling errors. Electronically signed by: Tommie Loredo M.D. 02/07/2022 9:04 AM
--- NOTE | 2022-02-07 09:26 | Orthopedic Progress Note ---
Date of Service February 07, 2022 Assessment & Plan (1) S/P hip hemiarthroplasty: Plan: Patient was encouraged to participate in physical therapy. She was unable to tell me if she was out of bed yesterday and sitting in a chair. She is more somnolent today than yesterday. She does have a mild elevation in temperature today at 37.8. Wound continues to look good. No erythema or warmth. Her last narcotic was given 3-1/2 hours ago. She received oral oxycodone. She did receive MS Contin last night around 8 PM. She has not received any IV morphine for 2 days. I am unsure as to the exact cause of her lethargy, though the narcotic may play a part. Ammonia level remains normal. Continue with PT/OT as patient is able to tolerate. She will require placement. I will make Dr. Cha aware of her current condition. Admission and Anticipated Discharge Date Admission Date: February 05, 2022 Supervising Physician Co-Signing Physician Notes Patient assessed. Remains confused and somnolent. Spoke with her daughter as well as Dr. soares. She is been having low-grade fevers. Also anemic. She is getting some blood. Concerned about any bleeding in the hip area. Her wound VAC was nonfunctional. We removed it. The incision was bruised but otherwise pristine without any significant swelling or drainage and a new wound VAC was applied. Her foot is warm. She does not have any sensation or motor function. Abduction pillow in place. Altered mental status is fairly in the situation. Work to promote upright posture. Pulmonary toilet. PT and OT. Aspirin and mechanicals for DVT prophylaxis. Subjective Patient is seen in her room this morning. She is extremely somnolent. I was able to awaken her by voice and touch. Patient is able to tell me that she is not in pain at the moment. She denies any chest pain, shortness of breath, nausea, or vomiting. She did fall back asleep. Physical Exam Physical Exam: General: Well-developed, morbidly obese elderly white female, who is extremely somnolent this morning. She is unable to tell me where she is at. Skin: Warm and dry with fair turgor. No rashes. Prevena wound VAC is in place on the left hip. Musculoskeletal: Wedge pillow is in place. Patient is unable to participate with active motion of her left leg. Passively, I am able to flex and extend her knee and hip. She does verbalize pain with this motion. She also grimaces with logrolling of the hip. Neurologic: Gross sensation is intact to the lower extremities by soft touch. Peripheral pulses are 2+. Results & Data ([facility]) Vital Signs (Past 12 Hours) Vital Signs Temp Pulse Pulse Resp BP Pulse Ox O2 Del Method 02/07/22 07:39 37.8 C H 95 H 18 106/66 92 Nasal Cannula 02/07/22 03:00 37.8 C H 102 H 20 106/66 94 Nasal Cannula 02/06/22 22:16 102 H 02/06/22 23:49 37.4 C 102 H 20 115/68 92 Nasal Cannula 02/06/22 22:48 Nasal Cannula O2 Flow Rate 02/07/22 07:39 3 02/07/22 03:00 2 02/06/22 22:16 02/06/22 23:49 2 02/06/22 22:48 2 Laboratory Results CBC obtained this morning shows an H&H of 7.4 and 23.3. Platelets of 113,000. Sodium 128, potassium 4.2, chloride 96, CO2 27. BUN 14 creatinine 1.0. Glucose 146. Diagnostic Findings Chest x-ray ordered this morning shows cardiomegaly with pulmonary vascular congestion. Mild right lung base atelectasis.
[2022-02-07] MEDS: LANTUS PER UNIT CHARGE SQ SCH ×2 (09:36→22:10)
[2022-02-07] MEDS: guaiFENesin 600 MG TABCR PO SCH ×2 (10:05→21:59)
[2022-02-07] MEDS: DOXYCYCLINE HYCLATE 100 MG CAP PO SCH ×2 (10:05→21:58)
--- NOTE | 2022-02-07 11:15 | Cardiology Progress Note ---
Date of Service February 07, 2022 Assessment & Plan (1) Hip fracture, left: (2) 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: (3) S/P CABG x 1: (4) Bipolar disorder: (5) Xocrgcb-Shryr-Kljyx disease: (6) Moderate aortic stenosis: (7) CAD (coronary artery disease): Plan From a cardiac standpoint the patient is stable. Her hemoglobin this morning is 7.4 and consideration should be given for blood transfusion. Otherwise no current recommendations. Admission and Anticipated Discharge Date Admission Date: February 05, 2022 Subjective The patient is alert and has no new cardiac complaints. Moved to medical ICU for precaution. Review of Systems Review of Systems: Review of Systems: See HPI for pertinent positives. All other 10 point review of systems are negative. Physical Exam Physical Exam: General: no acute distress and stated age Head: normocephalic, no masses, lesions, tenderness or abnormalities Eyes: conjunctiva are pink and non-injected, sclera clear Neck: supple, no adenopathy, no bruits, normal jugular venous pulse, no hepatojugular reflux Chest: normal shape and normal respiratory effort Lungs: clear to auscultation and percussion Cardiac Exam: - regular rate & rhythm, no murmurs gallops or rubs - normal S1, normal S2 Pulses: 2(+) throughout Abdomen: abdomen soft, non-tender, no abnormal masses and no hepatosplenomegaly Musculoskeletal: no gait disturbance, no joint inflammation, no deforming arthritis Extremities: no edema and no cyanosis Neuro: grossly normal exam Results & Data ([facility]) Vital Signs (Past 12 Hours) Vital Signs Temp Pulse Resp BP Pulse Ox O2 Del Method O2 Flow Rate 02/07/22 09:30 Nasal Cannula 2 02/07/22 07:39 37.8 C H 95 H 18 106/66 92 Nasal Cannula 3 02/07/22 03:00 37.8 C H 102 H 20 106/66 94 Nasal Cannula 2 02/06/22 23:49 37.4 C 102 H 20 115/68 92 Nasal Cannula 2 Laboratory Results Laboratory Results - last 24 hr 02/06/22 02/06/22 02/06/22 11:26 11:41 16:15 WBC RBC Hgb 7.7 L Hct 24.6 L MCV MCH MCHC RDW Std Deviation RDW Coeff of Guillermo Plt Count MPV Sodium Potassium Chloride Carbon Dioxide Anion Gap BUN Creatinine Est Cr Clr Drug Dosing Est GFR ( Amer) Est GFR (Non-Af Amer) BUN/Creatinine Ratio Glucose POC Glucose 205 H Calcium Phosphorus Magnesium Total Bilirubin AST ALT Alkaline Phosphatase Ammonia 33.0 Total Protein Albumin Globulin Albumin/Globulin Ratio 02/06/22 02/06/22 02/07/22 16:30 20:00 07:32 WBC 9.32 RBC 3.08 L Hgb 7.4 L Hct 23.3 L MCV 75.6 L MCH 24.0 L MCHC 31.8 L RDW Std Deviation 50.0 H RDW Coeff of Guillermo 18.5 H Plt Count 113 L MPV 10.3 Sodium Potassium Chloride Carbon Dioxide Anion Gap BUN Creatinine Est Cr Clr Drug Dosing Est GFR ( Amer) Est GFR (Non-Af Amer) BUN/Creatinine Ratio Glucose POC Glucose 173 H 219 H Calcium Phosphorus Magnesium Total Bilirubin AST ALT Alkaline Phosphatase Ammonia Total Protein Albumin Globulin Albumin/Globulin Ratio 02/07/22 02/07/22 02/07/22 07:32 07:32 07:54 WBC RBC Hgb Hct MCV MCH MCHC RDW Std Deviation RDW Coeff of Guillermo Plt Count MPV Sodium 128 L Potassium 4.2 Chloride 96 L Carbon Dioxide 27 Anion Gap 5 BUN 14 Creatinine 1.00 Est Cr Clr Drug Dosing 67.3 Est GFR ( Amer) 65.2 Est GFR (Non-Af Amer) 56.2 BUN/Creatinine Ratio 14.0 Glucose 146 H POC Glucose 156 H Calcium 8.3 L Phosphorus 2.5 Magnesium 1.9 Total Bilirubin 1.3 H AST 35 ALT 10 Alkaline Phosphatase 136 H Ammonia 18.0 Total Protein 5.4 L Albumin 2.9 L Globulin 2.5 Albumin/Globulin Ratio 1.2 Medications Administered Current Inpatient Medications Acetaminophen (Acetaminophen 325 Mg Tab) 325 mg PO Q6H PRN PRN Reason: Mild Pain Stop: 03/07/22 06:14 Last Admin: 02/07/22 08:04 Dose: 325 mg Aripiprazole (Aripiprazole 1 Mg/Ml Oral Soln 150 Ml Btl) 2 mg PO HS ANGELLA Stop: 03/07/22 20:59 Last Admin: 02/06/22 20:09 Dose: 2 mg Ascorbic Acid (Ascorbic Acid 500 Mg Tab) 500 mg PO BID ANGELLA Stop: 03/07/22 20:59 Last Admin: 02/07/22 08:04 Dose: 500 mg Aspirin (Aspirin 81 Mg Ectab) 81 mg PO [facility] Stop: 03/07/22 11:29 Last Admin: 02/07/22 08:06 Dose: 81 mg Atorvastatin Calcium (Atorvastatin 40 Mg Tab) 40 mg PO [facility] Stop: 03/07/22 11:14 Last Admin: 02/07/22 08:06 Dose: 40 mg Bisacodyl (Bisacodyl 10 Mg Supp) 10 mg [place] DAILY PRN PRN Reason: Constipation Stop: 03/07/22 10:49 Dextrose (Dextrose 50% 50 Ml Syringe) 25 - 50 ml IV UD PRN; Protocol PRN Reason: Hypoglycemia Protocol Stop: 03/07/22 10:49 Doxycycline Hyclate (Doxycycline Hyclate 100 Mg Cap) 100 mg PO BID [facility]; Protocol Stop: 02/14/22 09:59 Last Admin: 02/07/22 10:05 Dose: 100 mg Enoxaparin Sodium (Enoxaparin Inj 30 Mg/0.3 Ml Syr) 30 mg SQ Q12H [facility] Stop: 03/08/22 07:59 Last Admin: 02/07/22 08:04 Dose: 30 mg Glucagon (Glucagon For Inj 1 Mg Vial) 1 mg SQ UD PRN; Protocol PRN Reason: Hypoglycemia Protocol Stop: 03/07/22 10:49 Glucose (Glucose 40% Gel 15 Gm Tube) 15 - 30 gm PO UD PRN; Protocol PRN Reason: Hypoglycemia Protocol Stop: 03/07/22 10:49 Glucose (Glucose 10 Tab/Tube) 4 - 8 tab PO UD PRN; Protocol PRN Reason: Hypoglycemia Treatment Stop: 03/07/22 10:49 Guaifenesin (Guaifenesin 600 Mg Tabcr) 600 mg PO Q12 [facility] Stop: 03/09/22 09:29 Last Admin: 02/07/22 10:05 Dose: 600 mg Promethazine HCl 12.5 mg/ (Sodium Chloride) 50.5 mls @ 202 mls/hr IV Q6H PRN PRN Reason: Nausea And Vomiting Stop: 03/07/22 06:14 Ertapenem 1,000 mg/ Syringe 10 mls @ 2 mls/min IV Q24H [facility]; Protocol Stop: 02/16/22 08:59 Last Admin: 02/07/22 08:19 Dose: 2 mls/min Insulin Aspart (Insulin Aspart Per Unit) 0 units SC ACHS [facility] Stop: 03/07/22 11:29 Last Admin: 02/07/22 08:40 Dose: 1 units Insulin Glargine (Lantus Per Unit Charge) 10 units SQ BID [facility] Stop: 03/07/22 11:14 Last Admin: 02/07/22 09:36 Dose: 10 units Lactulose (Lactulose Syrup 30 Gm/45 Ml Udp) 30 gm PO BID [facility] Stop: 03/07/22 11:29 Last Admin: 02/07/22 08:04 Dose: 30 gm Lamotrigine (Lamotrigine 25 Mg Tab) 75 mg PO QAM [facility] Stop: 03/07/22 11:14 Last Admin: 02/07/22 08:05 Dose: 75 mg Lamotrigine (Lamotrigine 100 Mg Tab) 100 mg PO QAM [facility] Stop: 03/07/22 11:14 Last Admin: 02/07/22 08:18 Dose: 100 mg Lamotrigine (Lamotrigine 100 Mg Tab) 150 mg PO HS [facility] Stop: 03/07/22 20:59 Last Admin: 02/06/22 20:11 Dose: 150 mg Levothyroxine Sodium (Levothyroxine Sodium 88 Mcg Tablet) 88 mcg PO DAILYBB [facility] Stop: 03/07/22 11:14 Last Admin: 02/07/22 05:47 Dose: 88 mcg Lorazepam (Lorazepam 0.5 Mg Tab) 0.25 mg PO TID PRN PRN Reason: Anxiety Stop: 03/07/22 06:17 Metoprolol Succinate (Metoprolol Succ 50mg Ext Rel Tab) [facility] Stop: 03/07/22 11:14 Last Admin: 02/07/22 08:06 Dose: 50 mg Miscellaneous (Carbohydrates For Hypoglycemia ) 15 - 30 gm PO UD PRN PRN Reason: Hypoglycemia Protocol Stop: 03/07/22 10:49 Montelukast Sodium (Montelukast Sodium 10 Mg Tablet) 10 mg PO DAILY@1600 [facility] Stop: 03/07/22 15:59 Last Admin: 02/06/22 17:55 Dose: 10 mg Morphine Sulfate (Morphine Sulfate 4 Mg/Ml 1 Ml Carp\Vial) 4 mg IV Q4H PRN PRN Reason: Pain Stop: 02/19/22 06:14 Last Admin: 02/05/22 08:21 Dose: 4 mg Morphine Sulfate (Morphine Sulfate Cr 15 Mg Tabcr) 15 mg PO BID [facility] Stop: 02/19/22 11:14 Last Admin: 02/07/22 08:07 Dose: Not Given Naloxone HCl (Naloxone Hcl 0.4 Mg/1 Ml Vial/Carp) 0.1 mg IV UD PRN PRN Reason: Opiate Overdose Stop: 03/07/22 10:49 Oxybutynin Chloride (Oxybutynin Chloride Xl 5 Mg Tabcr) 10 mg PO QAM [facility] Stop: 03/07/22 11:14 Last Admin: 02/07/22 08:06 Dose: 10 mg Oxycodone HCl (Oxycodone Hcl Ir 5 Mg Tab (Immediate Release)) 5 mg PO Q4H PRN PRN Reason: Pain Stop: 02/19/22 06:14 Last Admin: 02/07/22 05:49 Dose: 5 mg Pantoprazole Sodium (Pantoprazole 40 Mg Tab) 40 mg PO DAILYBB [facility] Stop: 03/07/22 11:14 Last Admin: 02/07/22 05:47 Dose: 40 mg Rifaximin (Rifaximin 550 Mg Tablet) 550 mg PO BID [facility] Stop: 03/07/22 11:14 Last Admin: 02/07/22 08:06 Dose: 550 mg Tamsulosin HCl (Tamsulosin Hcl 0.4 Mg Cap) 0.4 mg PO QAM [facility] Stop: 03/07/22 11:14 Last Admin: 02/07/22 08:06 Dose: 0.4 mg Venlafaxine HCl (Venlafaxine Hcl Xr 150 Mg Capxr) 150 mg PO QAM [facility] Stop: 03/07/22 11:14 Last Admin: 02/07/22 08:06 Dose: 150 mg Venlafaxine HCl (Venlafaxine Hcl Xr 75 Mg Capxr) 75 mg PO QAM [facility] Stop: 03/07/22 11:14 Last Admin: 02/07/22 08:08 Dose: 75 mg
[2022-02-07] MEDS ORDERED: SODIUM CHLORIDE 0.9% 250 ML IV PRN (12:12)
[2022-02-07 12:38] LABS: Hematocrit (blood only) 24.1 % (34.1-44.9); Hemoglobin 7.7 g/dl (12.0-16.0)
[2022-02-07 13:13] LABS: BUN Creatinine Ratio 14.6 (10-20); Calcium 8.5 mg/dl (8.5-10.1); Creatinine Clr Calc Pharmacy 70.1 ml/min; Est GFR (African American) 68.5 ml/min; Est GFR (Non-African American) 59.1 ml/min; Potassium 3.7 mmol/L (3.5-5.1)
--- NOTE | 2022-02-07 14:58 | CT Scan Report ---
CT hip LT wo con HISTORY: 71 years-old Female anemia s/p L hip surgery follow-up study in a patient with an acute sub capital left femoral fracture with subsequent total joint arthroplasty. Acute postoperative anemia COMPARISON: Pelvis 02/05/2022, left hip radiographs 02/05/2022 TECHNIQUE: Multiple axial CT images of the left hip were obtained without the use of IV contrast. A d ose lowering technique was used consistent with the principals of MELCHOR. FINDINGS: No acute intrapelvic abnormality identified. There is moderate colonic fecal retention. Gallagher cathete r is noted within the urinary bladder lumen. Intraluminal air is likely secondary to instrumentation. Satisfactory alignment of the recently placed left hip total joint arthroplasty. Streak artifact from the hardware limits the study. No acute fracture or malalignment identified. Lateral skin daniel ar e present. Expected postoperative subcutaneous edema with deep tissue air within the subcutaneous tis sues and musculature. Moderate atrophy of the hamstring suggestive of chronic injury. No large postop erative hematoma. There is a 1.2 x 4.6 x 5.7 cm collection distal air and likely hemorrhagic debris/f luid which tracks between the gluteus medius and minimus musculature on image 47 series 5. IMPRESSION: 1. Satisfactory alignment of the left hip total joint arthroplasty. No acute fracture identified. 2. Expected postoperative changes with a small postoperative collection interposed between the gluteu s medius and minimus musculature measuring up to 5.7 cm. 3. No large postoperative hematoma. ACT 112: Negative or not required by law. The above report was generated using voice recognition software. It may contain grammatical, syntax o r spelling errors. Electronically signed by: Tommie Loredo M.D. 02/07/2022 2:57 PM
--- NOTE | 2022-02-07 16:50 | Consultation Report ---
NEPHROLOGY CONSULTATION DATE OF SERVICE: 02/07/2022 REASON FOR CONSULTATION: Hyponatremia. HISTORY OF PRESENT ILLNESS: The patient is a 71-year-old female who was admitted 2 days ago followin g a fall where she sustained a fracture. She did undergo a surgery. The patient has underlying mariam estive heart failure and does take Demadex at home. This was held from the time of admission until t his morning. Admission sodium was 133. She also received some normal saline, but with that, her sod ium started to go low and went down to 128 this morning. Chest x-ray showed pulmonary edema. After that, 20 mg of IV Lasix was given and sodium went up to 129. The patient is unable to give me any hi story. She did have significant anemia. Hemoglobin dropped down to 7.4 from 12.1 just 2 days ago. The patient is having a significant amount of pain and has received multiple opioid medicines. Urine test was done on admission and was completely normal with negative blood and negative protein. Her kidney function is normal with a creatinine of 0.9. Vital signs appear stable for now. PAST MEDICAL HISTORY: Includes chronic diastolic heart failure, most recent echocardiogram from 09/05 022, ejection fraction 55%, moderate aortic stenosis; hypertension; hyperlipidemia; bipolar disorder; type 2 diabetes requiring insulin; chronic hyponatremia; history of ESBL E. coli UTI, ongoing ertape nem treatment; history of DVT; history of ambulatory dysfunction secondary to Kdiylkf-Vpbsj-Iiplw dis ease; also mentioned of nonalcoholic steatohepatitis with liver cirrhosis. REVIEW OF SYSTEMS: Unable to obtain as the patient is very confused and not able to give me any hist ory. PAST SURGICAL HISTORY: CABG, cholecystectomy, appendicectomy, back surgery, hysterectomy, knee surge ry, total abdominal hysterectomy. FAMILY HISTORY: Negative for renal disease or dialysis. PERSONAL AND SOCIAL HISTORY: Nonsmoker, no alcohol. Disabled with significant ambulatory dysfunctio n. ALLERGIES: ALLERGY LIST IS REVIEWED AND IS PER H AND P. MEDICATIONS: Home medication list was also reviewed in detail and is as per the H and P and the kailash nciliation list. Of special interest to nephrology, patient takes spironolactone 50 twice daily, tor semide 20-40 mg daily in the morning. The patient was also getting ertapenem for ESBL UTI. PHYSICAL EXAMINATION: GENERAL: Elderly white female who is morbidly obese. She is very confused and unable to give me any history. She does seem to be having significant pain based on her facial expression. HEENT: Mucous membrane is moist. NECK: Supple. No jugular venous distention. CHEST: Decreased breath sounds with poor quality examination. HEART: Regular rate and rhythm. Systolic murmur heard. ABDOMEN: Obese, soft, nontender. EXTREMITIES: Show 1+ edema bilaterally. However, very hard to assess fluid status given her morbid obesity. NEUROLOGIC: She is awake and alert with eyes open; however, not following command or cooperating wit h the question. LABORATORY TEST: As stated earlier, the patient does have chronic mild hyponatremia where the serum sodium ranges anywhere from 126 to 135. On admission, she had 133, but then dropped after the torsemi de was held and IV fluid given. Most recent sodium 129. BUN 14, creatinine 0.96, calcium 8.5. ASSESSMENT AND PLAN: A 71-year-old female with chronic mild hyponatremia, now admitted after a fall and sustaining fracture in her hip, status post surgery. I have been consulted for [id number] hyponatremia. Hyponatremia: As stated, this is [id number]. She does have chronic mild hyponatremia with seru m sodium ranging from 126 to 135, on admission was 133, but after torsemide was held and IV fluid giv en, it dropped to 128. The patient has evidence of congestive heart failure/fluid overload. She has pulmonary edema on the x-ray and she did receive Lasix 20 mg IV earlier today. With that, sodium varsha t up a little bit to 129. So by definition, her hyponatremia is hypervolemic hyponatremia. I would give another dose of Lasix 20 mg IV now. We can do the next laboratory in the morning. No further w orkup for hyponatremia is needed as this is chronic mild hyponatremia. Thank you very much for the consult. Job ID: [id number]
[2022-02-07] MEDS: MONTELUKAST SODIUM 10 MG TABLET PO SCH (17:05)
--- NOTE | 2022-02-07 17:53 | XRay Report ---
KUB CLINICAL HISTORY: vomiting, abd. pain COMPARISON STUDY: CT of the abdomen and pelvis January 23, 2022. FINDINGS: Left hip arthroplasty is partially imaged. Skin daniel are present. Bowel gas pattern is n ormal. No evidence for a bowel obstruction. Note is made of a moderate amount stool within the colon and rectum. Gas within the bladder is again noted. This was shown on prior left head CT and due to in dwelling [place]. IMPRESSION: 1. No evidence for a bowel obstruction. 2. Moderate amount of stool within the colon and rectum. ACT 112: Negative or not required by law. Electronically signed by: Mu Bonds M.D. 02/07/2022 5:52 PM
[2022-02-07] MEDS: PROMETHAZINE HCL 12.5 MG in SODIUM CHLORIDE 0.9% 50 ML IV PRN (18:24)
[2022-02-07] MEDS: ARIPIprazole 1 MG/ML ORAL SOLN 150 ML BTL PO SCH (22:34)
[2022-02-08] MEDS: PANTOprazole 40 MG TAB PO SCH (06:20)
[2022-02-08] MEDS: LEVOTHYROXINE SODIUM 88 MCG TABLET PO SCH (06:20)
[2022-02-08 06:29] LABS: Hematocrit (blood only) 26.4 % (34.1-44.9); Hemoglobin 8.6 g/dl (12.0-16.0); Mean Corpuscular Hemoglobin 24.9 pg (25.0-34.0); Mean Corpuscular Hgb Conc 32.6 g/dL (32.0-36.0); Mean Corpuscular Volume 76.5 fL (80.0-100.0); Mean Platelet Volume 10.6 fL (9.4-12.3); Platelet Count 118 K/uL (130-400); RDW Coefficient of Variation 18.5 % (11.5-14.5); RDW Standard Deviation 50.4 fL (36.4-46.3); Red Blood Count 3.45 M/uL (3.93-5.22); White Blood Count 16.56 K/ul (4.8-10.8)
[2022-02-08 06:50] LABS: Albumin Globulin Ratio 1.1 (0.9-2); Albumin Level 2.9 gm/dl (3.4-5.0); BUN Creatinine Ratio 16.7 (10-20); Bilirubin,Total 1.4 mg/dl (0.2-1.0); Calcium 8.1 mg/dl (8.5-10.1); Creatinine Clr Calc Pharmacy 72.4 ml/min; Est GFR (Non-African American) 63.9 ml/min; Globulin 2.7 gm/dl (2.5-4.0); Magnesium 1.8 mg/dl (1.7-2.4); Phosphorus 2.3 mg/dl (2.5-4.9); Potassium 3.3 mmol/L (3.5-5.1); Total Protein 5.6 gm/dl (6.0-8.3)
[2022-02-08] MEDS ORDERED: POTASSIUM CHLORIDE CRTAB 20 MEQ TABCR PO STA (07:13)
[2022-02-08] MEDS: ACETAMINOPHEN 325 MG TAB PO PRN (07:48)
[2022-02-08] MEDS: ENOXAPARIN INJ 30 MG/0.3 ML SYR SQ SCH ×2 (07:49→20:21)
[2022-02-08] MEDS: INSULIN ASPART PER UNIT SC SCH ×4 (08:15→20:43)
[2022-02-08] MEDS: MoRPHine SULFATE CR 15 MG TABCR PO SCH ×2 (08:26→20:21)
[2022-02-08] MEDS: LANTUS PER UNIT CHARGE SQ SCH ×2 (08:26→20:43)
--- NOTE | 2022-02-08 09:02 | Hospitalist Progress Note ---
Date of Service February 08, 2022 Assessment & Plan (1) Hip fracture, left: Plan: Secondary to fall History ambulatory dysfunction/Ghoernn-Rfaxr-Drdut disease Patient predisposed by lethargy secondary to multiple neuropsychotropic and narcotic medications Rule out hepatic encephalopathy as contributory factor to lethargy history NAFLD cirrhosis Medical telemetry given episodic lethargy and cardiac history Check ammonia level, facilitate lactulose and rifaximin Ammonia level wnl, cont. to monitor Appropriate to hold narcotics/neuropsychotropic meds for sedation confusion History ESBL E. coli UTI ongoing Ertapenem Rx Repeat UA negative Pt cont. to have intermittent fevers Continue ertapenem, added doxy for now blood cultures - pending 02/08 - WBC elevated at 16,000, switch ertapenem and Doxy to meropenem plus vancomycin Orthopedics consult Re: Left hip fracture ([facility] as per family's request.) p Left Hip Hemiarthroplasty(Left) - Ivan Cha MD on 02/05/[address] hip obtained given anemia, and persistent fevers IMPRESSION: 1. Satisfactory alignment of the left hip total joint arthroplasty. No acute fracture identified. 2. Expected postoperative changes with a small postoperative collection interposed between the gluteus medius and minimus musculature measuring up to 5.7 cm. 3. No large postoperative hematoma. Cardiology preop eval requested given RCRI of at least 3 points (Class IV risk) if surgery recommended and patient/family agreeable to procedural risks. Pt high risk for procedure not only d/t cardiac dz but her other med. conditions. Chronic diastolic heart failure (EF 55 to 59%, TTE 09/2021) hx CAD status post CABG/stent Moderate Hypertension, stable Hyperlipidemia, on statin Rx Torsemide and spironolactone resumed Acute blood loss anemia post-op vs. dilutional pre-op Hgb ~12, post-op ~8 cont. to monitor H&H, transfuse if Hgb <7.5 s/p 1 unit of pRBC - current Hgb 8.6 Bipolar disorder/OCD, at baseline DM2 insulin requiring, well-controlled as of recent hemoglobin A1c of 11 December 2021 Basal insulin adjusted for n.p.o. status, ISS BG goal 110-140 Chronic hyponatremia cont. to monitor Hypervolemic hyponatremia, sodium improved after Lasix Resumed torsemide and spironolactone Past history DVT as per records DVT prophylaxis. lovenox (per ortho) Full code Patient's daughters: Ms. Carolyn Burciaga, contact #[phone] Ms. Yarelis Burciaga, contact #[phone]. Admission and Anticipated Discharge Date Admission Date: February 05, 2022 Subjective Patient seen in follow-up for hip fracture, status postsurgical repair p Left Hip Hemiarthroplasty(Left) - Ivan Cha MD on 02/05/22 Currently lying in bed, in no acute distress She is able to answer some simple questions appropriately, appears little more alert today Currently has no complaints, besides some pain in left hip Cont. to spike fever Patient's daughters updated at the bedside yesterday Review of Systems Review of Systems: All systems reviewed & are unremarkable except as noted in Subjective Physical Exam Physical Exam: GENERAL: morbidly obese F, in NAD, on RA HEENT: NC/AT, [place] palpebral conjunctivae NECK : Supple CHEST : Decreased breath sounds, + crackles, no wheezing HEART : RRR, systolic murmur ABDOMEN: +bowel sounds, nontender, obese, soft : mejia catheter placed SKIN: Normal color, warm EXTREMITIES : Minimal LE swelling, left hip tenderness (s/p surgery), does not move LLE (hx of CMT - baseline per ortho), moves RLE NEUROLOGIC : Awake, able to answer some simple questions appropriately, more alert than yesterday, no facial asymmetry Results & Data Results & Data ([facility]) Vital Signs (Past 12 Hours) Vital Signs Temp Pulse Resp BP Pulse Ox O2 Del Method 02/08/22 07:12 37.4 C 86 18 131/60 94 02/08/22 03:00 39.1 C H 103 H 18 139/63 94 02/07/22 23:08 37.4 C 99 H 16 155/80 H 99 Room Air Laboratory Results 02/08/22 02/08/22 02/08/22 Range/Units 07:19 06:05 06:05 WBC 16.56 H (4.8-10.8) K/ul RBC 3.45 L (3.93-5.22) M/uL Hgb 8.6 L (12.0-16.0) g/dl Hct 26.4 L (34.1-44.9) % MCV 76.5 L (80.0-100.0) fL MCH 24.9 L (25.0-34.0) pg MCHC 32.6 (32.0-36.0) g/dL RDW Std Deviation 50.4 H (36.4-46.3) fL RDW Coeff of Guillermo 18.5 H (11.5-14.5) % Plt Count 118 L (130-400) K/uL MPV 10.6 (9.4-12.3) fL Sodium (136-145) mmol/L Potassium (3.5-5.1) mmol/L Chloride (98-107) mmol/L Carbon Dioxide (21-32) mmol/L Anion Gap (3-11) BUN (6-23) mg/dl Creatinine (0.6-1.2) mg/dl Est Cr Clr Drug Dosing ml/min Est GFR ( Amer) ml/min Est GFR (Non-Af Amer) ml/min BUN/Creatinine Ratio (10-20) Glucose (70-99(Fasting)) mg/dl POC Glucose 181 H (70-99) mg/dl Calcium (8.5-10.1) mg/dl Phosphorus (2.5-4.9) mg/dl Magnesium (1.7-2.4) mg/dl Total Bilirubin (0.2-1.0) mg/dl AST (13-39) U/L ALT (7-52) U/L Alkaline Phosphatase (34-104) U/L Ammonia 29.0 (18-72) umol/L Total Protein (6.0-8.3) gm/dl Albumin (3.4-5.0) gm/dl Globulin (2.5-4.0) gm/dl Albumin/Globulin Ratio (0.9-2) Blood Type Antibody Screen Antibody Identification Antibody ID Comment Antigen Identification Crossmatch 02/08/22 02/07/22 02/07/22 Range/Units 06:05 16:22 12:23 WBC (4.8-10.8) K/ul RBC (3.93-5.22) M/uL Hgb (12.0-16.0) g/dl Hct (34.1-44.9) % MCV (80.0-100.0) fL MCH (25.0-34.0) pg MCHC (32.0-36.0) g/dL RDW Std Deviation (36.4-46.3) fL RDW Coeff of Guillermo (11.5-14.5) % Plt Count (130-400) K/uL MPV (9.4-12.3) fL Sodium 129 L 129 L (136-145) mmol/L Potassium 3.3 L 3.7 (3.5-5.1) mmol/L Chloride 95 L 95 L (98-107) mmol/L Carbon Dioxide 25 26 (21-32) mmol/L Anion Gap 9 8 (3-11) BUN 15 14 (6-23) mg/dl Creatinine 0.90 0.96 (0.6-1.2) mg/dl Est Cr Clr Drug Dosing 72.4 70.1 ml/min Est GFR ( Amer) 74.0 68.5 ml/min Est GFR (Non-Af Amer) 63.9 59.1 ml/min BUN/Creatinine Ratio 16.7 14.6 (10-20) Glucose 175 H 171 H (70-99(Fasting)) mg/dl POC Glucose 174 H (70-99) mg/dl Calcium 8.1 L 8.5 (8.5-10.1) mg/dl Phosphorus 2.3 L (2.5-4.9) mg/dl Magnesium 1.8 (1.7-2.4) mg/dl Total Bilirubin 1.4 H (0.2-1.0) mg/dl AST 27 (13-39) U/L ALT 9 (7-52) U/L Alkaline Phosphatase 147 H (34-104) U/L Ammonia (18-72) umol/L Total Protein 5.6 L (6.0-8.3) gm/dl Albumin 2.9 L (3.4-5.0) gm/dl Globulin 2.7 (2.5-4.0) gm/dl Albumin/Globulin Ratio 1.1 (0.9-2) Blood Type Antibody Screen Antibody Identification Antibody ID Comment Antigen Identification Crossmatch 02/07/22 02/07/22 02/07/22 Range/Units 12:23 11:21 07:32 WBC (4.8-10.8) K/ul RBC (3.93-5.22) M/uL Hgb 7.7 L (12.0-16.0) g/dl Hct 24.1 L (34.1-44.9) % MCV (80.0-100.0) fL MCH (25.0-34.0) pg MCHC (32.0-36.0) g/dL RDW Std Deviation (36.4-46.3) fL RDW Coeff of Guillermo (11.5-14.5) % Plt Count (130-400) K/uL MPV (9.4-12.3) fL Sodium 128 L (136-145) mmol/L Potassium 4.2 (3.5-5.1) mmol/L Chloride 96 L (98-107) mmol/L Carbon Dioxide 27 (21-32) mmol/L Anion Gap 5 (3-11) BUN 14 (6-23) mg/dl Creatinine 1.00 (0.6-1.2) mg/dl Est Cr Clr Drug Dosing 67.3 ml/min Est GFR ( Amer) 65.2 ml/min Est GFR (Non-Af Amer) 56.2 ml/min BUN/Creatinine Ratio 14.0 (10-20) Glucose 146 H (70-99(Fasting)) mg/dl POC Glucose 188 H (70-99) mg/dl Calcium 8.3 L (8.5-10.1) mg/dl Phosphorus 2.5 (2.5-4.9) mg/dl Magnesium 1.9 (1.7-2.4) mg/dl Total Bilirubin 1.3 H (0.2-1.0) mg/dl AST 35 (13-39) U/L ALT 10 (7-52) U/L Alkaline Phosphatase 136 H (34-104) U/L Ammonia (18-72) umol/L Total Protein 5.4 L (6.0-8.3) gm/dl Albumin 2.9 L (3.4-5.0) gm/dl Globulin 2.5 (2.5-4.0) gm/dl Albumin/Globulin Ratio 1.2 (0.9-2) Blood Type Antibody Screen Antibody Identification Antibody ID Comment Antigen Identification Crossmatch 02/05/22 Range/Units 08:11 WBC (4.8-10.8) K/ul RBC (3.93-5.22) M/uL Hgb (12.0-16.0) g/dl Hct (34.1-44.9) % MCV (80.0-100.0) fL MCH (25.0-34.0) pg MCHC (32.0-36.0) g/dL RDW Std Deviation (36.4-46.3) fL RDW Coeff of Guillermo (11.5-14.5) % Plt Count (130-400) K/uL MPV (9.4-12.3) fL Sodium (136-145) mmol/L Potassium (3.5-5.1) mmol/L Chloride (98-107) mmol/L Carbon Dioxide (21-32) mmol/L Anion Gap (3-11) BUN (6-23) mg/dl Creatinine (0.6-1.2) mg/dl Est Cr Clr Drug Dosing ml/min Est GFR ( Amer) ml/min Est GFR (Non-Af Amer) ml/min BUN/Creatinine Ratio (10-20) Glucose (70-99(Fasting)) mg/dl POC Glucose (70-99) mg/dl Calcium (8.5-10.1) mg/dl Phosphorus (2.5-4.9) mg/dl Magnesium (1.7-2.4) mg/dl Total Bilirubin (0.2-1.0) mg/dl AST (13-39) U/L ALT (7-52) U/L Alkaline Phosphatase (34-104) U/L Ammonia (18-72) umol/L Total Protein (6.0-8.3) gm/dl Albumin (3.4-5.0) gm/dl Globulin (2.5-4.0) gm/dl Albumin/Globulin Ratio (0.9-2) Blood Type O Negative Antibody Screen POSITIVE A Antibody Identification Anti-D Antibody ID Comment Antigen Identification C Antigen - NEGATIVE Crossmatch See Detail Medications Administered Current Inpatient Medications Acetaminophen (Acetaminophen 325 Mg Tab) 325 mg PO Q6H PRN PRN Reason: Mild Pain Stop: 03/07/22 06:14 Last Admin: 02/08/22 07:48 Dose: 325 mg Aripiprazole (Aripiprazole 1 Mg/Ml Oral Soln 150 Ml Btl) 2 mg PO HS ANGELLA Stop: 03/07/22 20:59 Last Admin: 02/07/22 22:34 Dose: 2 mg Aspirin (Aspirin 81 Mg Ectab) 81 mg PO QAM [facility] Stop: 03/07/22 11:29 Last Admin: 02/07/22 08:06 Dose: 81 mg Atorvastatin Calcium (Atorvastatin 40 Mg Tab) 40 mg PO QAM [facility] Stop: 03/07/22 11:14 Last Admin: 02/07/22 08:06 Dose: 40 mg Bisacodyl (Bisacodyl 10 Mg Supp) 10 mg NC DAILY PRN PRN Reason: Constipation Stop: 03/07/22 10:49 Dextrose (Dextrose 50% 50 Ml Syringe) 25 - 50 ml IV UD PRN; Protocol PRN Reason: Hypoglycemia Protocol Stop: 03/07/22 10:49 Doxycycline Hyclate (Doxycycline Hyclate 100 Mg Cap) 100 mg PO BID [facility]; Protocol Stop: 02/14/22 09:59 Last Admin: 02/07/22 21:58 Dose: 100 mg Enoxaparin Sodium (Enoxaparin Inj 30 Mg/0.3 Ml Syr) 30 mg SQ Q12H [facility] Stop: 03/08/22 07:59 Last Admin: 02/08/22 07:49 Dose: 30 mg Glucagon (Glucagon For Inj 1 Mg Vial) 1 mg SQ UD PRN; Protocol PRN Reason: Hypoglycemia Protocol Stop: 03/07/22 10:49 Glucose (Glucose 40% Gel 15 Gm Tube) 15 - 30 gm PO UD PRN; Protocol PRN Reason: Hypoglycemia Protocol Stop: 03/07/22 10:49 Glucose (Glucose 10 Tab/Tube) 4 - 8 tab PO UD PRN; Protocol PRN Reason: Hypoglycemia Treatment Stop: 03/07/22 10:49 Guaifenesin (Guaifenesin 600 Mg Tabcr) 600 mg PO Q12 [facility] Stop: 03/09/22 09:29 Last Admin: 02/07/22 21:59 Dose: 600 mg Promethazine HCl 12.5 mg/ (Sodium Chloride) 50.5 mls @ 202 mls/hr IV Q6H PRN PRN Reason: Nausea And Vomiting Stop: 03/07/22 06:14 Last Infusion: 02/07/22 19:38 Dose: Infused Ertapenem 1,000 mg/ Syringe 10 mls @ 2 mls/min IV Q24H [facility]; Protocol Stop: 02/16/22 08:59 Last Admin: 02/07/22 08:19 Dose: 2 mls/min Insulin Aspart (Insulin Aspart Per Unit) 0 units SC ACHS [facility] Stop: 03/07/22 11:29 Last Admin: 02/08/22 08:15 Dose: 2 units Insulin Glargine (Lantus Per Unit Charge) 10 units SQ BID [facility] Stop: 03/07/22 11:14 Last Admin: 02/08/22 08:26 Dose: 10 units Lactulose (Lactulose Syrup 30 Gm/45 Ml Udp) 30 gm PO BID [facility] Stop: 03/07/22 11:29 Last Admin: 02/07/22 22:09 Dose: 30 gm Lamotrigine (Lamotrigine 25 Mg Tab) 75 mg PO QAM [facility] Stop: 03/07/22 11:14 Last Admin: 02/07/22 08:05 Dose: 75 mg Lamotrigine (Lamotrigine 100 Mg Tab) 100 mg PO [facility] Stop: 03/07/22 11:14 Last Admin: 02/07/22 08:18 Dose: 100 mg Lamotrigine (Lamotrigine 100 Mg Tab) 150 mg PO HS [facility] Stop: 03/07/22 20:59 Last Admin: 02/06/22 20:11 Dose: 150 mg Levothyroxine Sodium (Levothyroxine Sodium 88 Mcg Tablet) 88 mcg PO DAILYBB [facility] Stop: 03/07/22 11:14 Last Admin: 02/08/22 06:20 Dose: 88 mcg Lorazepam (Lorazepam 0.5 Mg Tab) 0.25 mg PO TID PRN PRN Reason: Anxiety Stop: 03/07/22 06:17 Metoprolol Succinate (Metoprolol Succ 50mg Ext Rel Tab) [facility] Stop: 03/07/22 11:14 Last Admin: 02/07/22 08:06 Dose: 50 mg Miscellaneous (Carbohydrates For Hypoglycemia ) 15 - 30 gm PO UD PRN PRN Reason: Hypoglycemia Protocol Stop: 03/07/22 10:49 Montelukast Sodium (Montelukast Sodium 10 Mg Tablet) 10 mg PO DAILY@1600 [facility] Stop: 03/07/22 15:59 Last Admin: 02/07/22 17:05 Dose: Not Given Morphine Sulfate (Morphine Sulfate 4 Mg/Ml 1 Ml Carp\Vial) 4 mg IV Q4H PRN PRN Reason: Pain Stop: 02/19/22 06:14 Last Admin: 02/05/22 08:21 Dose: 4 mg Morphine Sulfate (Morphine Sulfate Cr 15 Mg Tabcr) 15 mg PO BID [facility] Stop: 02/19/22 11:14 Last Admin: 02/08/22 08:26 Dose: 15 mg Naloxone HCl (Naloxone Hcl 0.4 Mg/1 Ml Vial/Carp) 0.1 mg IV UD PRN PRN Reason: Opiate Overdose Stop: 03/07/22 10:49 Oxybutynin Chloride (Oxybutynin Chloride Xl 5 Mg Tabcr) 10 mg PO QAM [facility] Stop: 03/07/22 11:14 Last Admin: 02/07/22 08:06 Dose: 10 mg Oxycodone HCl (Oxycodone Hcl Ir 5 Mg Tab (Immediate Release)) 5 mg PO Q4H PRN PRN Reason: Pain Stop: 02/19/22 06:14 Last Admin: 02/07/22 05:49 Dose: 5 mg Pantoprazole Sodium (Pantoprazole 40 Mg Tab) 40 mg PO DAILYBB [facility] Stop: 03/07/22 11:14 Last Admin: 02/08/22 06:20 Dose: 40 mg Rifaximin (Rifaximin 550 Mg Tablet) 550 mg PO BID [facility] Stop: 03/07/22 11:14 Last Admin: 02/07/22 21:59 Dose: 550 mg Spironolactone (Spironolactone 25 Mg Tab) 50 mg PO QAM [facility] Stop: 03/10/22 08:59 Tamsulosin HCl (Tamsulosin Hcl 0.4 Mg Cap) 0.4 mg [facility] [place] Stop: 03/07/22 11:14 Last Admin: 02/07/22 08:06 Dose: 0.4 mg Torsemide (Torsemide 20 Mg Tab) 20 [facility] [place] Stop: 03/10/22 08:59 Venlafaxine HCl (Venlafaxine Hcl Xr 150 Mg Capxr) 150 [facility] [place] Stop: 03/07/22 11:14 Last Admin: 02/07/22 08:06 Dose: 150 mg Venlafaxine HCl (Venlafaxine Hcl Xr 75 Mg Capxr) 75 mg [facility] [place] Stop: 03/07/22 11:14 Last Admin: 02/07/22 08:08 Dose: 75 mg
--- NOTE | 2022-02-08 09:17 | Cardiology Progress Note ---
Date of Service February 08, 2022 Assessment & Plan (1) Hip fracture, left: (2) 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: (3) S/P CABG x 1: (4) Bipolar disorder: (5) [place]-Poofw-Iwzgd disease: (6) Moderate aortic stenosis: (7) CAD (coronary artery disease): (8) Acute on chronic diastolic heart failure with preserved ejection fraction: Plan Patient developed acute on chronic HFpEF symptoms yesterday after blood transfusion. Received 2 doses of IV lasix 20 mg with improvement. Diuresed approx 2.5 L. Weight down. Respiratory status appears at baseline. Oral torsemide 20 mg daily resumed. Potassium is low and will resume oral spironolactone 50 mg daily (Home dose is 50 mg BID). Potassium has been supplemented as well. Mental status is poor. Possibly due to febrile illness and narcotic pain meds. WBC trending higher Continue antibiotics per hospitalist/ortho. hip CT yesterday was without evidence of infection. Stable mild hyponatremia. Hbg improving to 8.6 this morning. Monitor. PT/OT as tolerated. Case discussed with Dr. Mora. Admission and Anticipated Discharge Date Admission Date: February 05, 2022 Supervising Physician Co-Signing Physician Notes I have reviewed the medical record and seen the patient. I have discussed the case with Ney. I agree with the plan as outlined above. When I saw the patient today I felt that she was baseline. So it could be just from lethargy or from narcotics. Her ammonia level was 29 today. Subjective Patient awake but slow to answer questions. Denies chest pain or SOB currently. Review of systems is limited. Nurse reports she did not eat breakfast. Review of Systems Review of Systems: Review of Systems: See HPI for pertinent positives. All other 10 point review of systems are negative. Physical Exam Physical Exam: General: no acute distress and stated age Head: normocephalic, no masses, lesions, tenderness or abnormalities Eyes: conjunctiva are pink and non-injected, sclera clear Neck: supple, no adenopathy, no bruits, normal jugular venous pulse, no hepatojugular reflux Chest: normal shape and normal respiratory effort Lungs: clear to auscultation and percussion Cardiac Exam: - regular rate & rhythm, no murmurs gallops or rubs - normal S1, normal S2 Pulses: 2(+) throughout Abdomen: abdomen soft, non-tender, no abnormal masses and no hepatosplenomegaly Musculoskeletal: no gait disturbance, no joint inflammation, no deforming arthritis Extremities: no edema and no cyanosis Neuro: grossly normal exam Constitutional: + obese and + lethargic Neck: trachea midline, no thyromegaly Respiratory: no labored breathing and no cough Auscultation: + diminished lung sounds; no crackles, no rhonchi and no wheezes Cardiovascular: Rate/Rhythm: regular rate and regular rhythm Heart Sounds: + murmur (II/ systolic murmur) Vessels: no JVD Extremities: + edema (1+ ankle edema b/l ) Gastrointestinal (Abdomen): normal bowel sounds, soft, nontender, no hepatosplenomegaly Skin: no rashes, warm and dry Neurologic: + confused Results & Data ([facility]) Vital Signs (Past 12 Hours) Vital Signs Temp Pulse Resp BP Pulse Ox O2 Del Method 02/08/22 07:12 37.4 C 86 18 131/60 94 02/08/22 03:00 39.1 C H 103 H 18 139/63 94 02/07/22 23:08 37.4 C 99 H 16 155/80 H 99 Room Air Laboratory Results Cardiac Enzymes 02/08/22 Range/Units 06:05 AST 27 (13-39) U/L CBC 02/07/22 02/08/22 Range/Units 12:23 06:05 WBC 16.56 H (4.8-10.8) K/ul RBC 3.45 L (3.93-5.22) M/uL Hgb 7.7 L 8.6 L (12.0-16.0) g/dl Hct 24.1 L 26.4 L (34.1-44.9) % Plt Count 118 L (130-400) K/uL Comprehensive Metabolic Panel 02/07/22 02/08/22 Range/Units 12:23 06:05 Sodium 129 L 129 L (136-145) mmol/L Potassium 3.7 3.3 L (3.5-5.1) mmol/L Chloride 95 L 95 L (98-107) mmol/L Carbon Dioxide 26 25 (21-32) mmol/L BUN 14 15 (6-23) mg/dl Creatinine 0.96 0.90 (0.6-1.2) mg/dl Glucose 171 H 175 H (70-99(Fasting)) mg/dl Calcium 8.5 8.1 L (8.5-10.1) mg/dl AST 27 (13-39) U/L ALT 9 (7-52) U/L Alkaline Phosphatase 147 H (34-104) U/L Total Protein 5.6 L (6.0-8.3) gm/dl Albumin 2.9 L (3.4-5.0) gm/dl Intake and Output 02/07/22 02/08/22 02/08/22 22:59 06:59 14:59 Intake Total 360.5 / 460.5 Output Total 250 / 2450 1250 / 2450 Balance 110.5 / -1989.5 -1250 / -1988.5 Intake: IV 50.5 / 50.5 Promethazine HCl 12.5 mg In 50.5 / 50.5 Sodium Chloride 0.9% 50 ml @ 202 mls/hr IV Q6H PRN Rx#: [id number] Intake (Blood Product) Amt 310 / 310 Packed Cells, Leukoreduced 310 / 310 Unit [id number] Output: Emesis 250 / 250 Urine Amount (Catheter) 1250 / 2200 Gallagher/Indwelling 1250 / 2200 Other: # Emeses 2 Weight 107.1 kg Weight Measurement Method Built in [facility] Diagnostic Findings Laboratory Results WBC 16.56 K/ul (4.8-10.8) H 02/08/22 06:05 RBC 3.45 M/uL (3.93-5.22) L 02/08/22 06:05 Hgb 8.6 g/dl (12.0-16.0) L 02/08/22 06:05 Hct 26.4 % (34.1-44.9) L 02/08/22 06:05 MCV 76.5 fL (80.0-100.0) L 02/08/22 06:05 MCH 24.9 pg (25.0-34.0) L 02/08/22 06:05 MCHC 32.6 g/dL (32.0-36.0) 02/08/22 06:05 RDW Std Deviation 50.4 fL (36.4-46.3) H 02/08/22 06:05 RDW Coeff of Guillermo 18.5 % (11.5-14.5) H 02/08/22 06:05 Plt Count 118 K/uL (130-400) L 02/08/22 06:05 MPV 10.6 fL (9.4-12.3) 02/08/22 06:05 Immature Gran % (Auto) 1.0 % 02/06/22 07:37 Neut % (Auto) 79.4 % 02/06/22 07:37 Lymph % (Auto) 10.5 % 02/06/22 07:37 [place] % (Auto) 8.5 % 02/06/22 07:37 Eos % (Auto) 0.2 % 02/06/22 07:37 Baso % (Auto) 0.4 % 02/06/22 07:37 Neut # (Auto) 8.15 K/uL (1.4-6.5) H 02/06/22 07:37 Lymph # (Auto) 1.08 K/uL (1.2-3.4) L 02/06/22 07:37 [place] # (Auto) 0.87 K/uL (0.24-0.82) H 02/06/22 07:37 Eos # (Auto) 0.02 K/uL (0-0.50) 02/06/22 07:37 Baso # (Auto) 0.04 K/uL (0-0.2) 02/06/22 07:37 Immature Gran # (Auto) 0.10 K/uL (0.00-0.02) H 02/06/22 07:37 PT 11.5 Seconds (9.0-12.0) 02/05/22 03:46 INR 1.1 (0.9-1.1) 02/05/22 03:46 Sodium 129 mmol/L (136-145) L 02/08/22 06:05 Potassium 3.3 mmol/L (3.5-5.1) L 02/08/22 06:05 Chloride 95 mmol/L (98-107) L 02/08/22 06:05 Carbon Dioxide 25 mmol/L (21-32) 02/08/22 06:05 Anion Gap 9 (3-11) 02/08/22 06:05 BUN 15 mg/dl (6-23) 02/08/22 06:05 Creatinine 0.90 mg/dl (0.6-1.2) 02/08/22 06:05 Est Cr Clr Drug Dosing 72.4 ml/min 02/08/22 06:05 Est GFR ( Amer) 74.0 ml/min 02/08/22 06:05 Est GFR (Non-Af Amer) 63.9 ml/min 02/08/22 06:05 BUN/Creatinine Ratio 16.7 (10-20) 02/08/22 06:05 Glucose 175 mg/dl (70-99(Fasting)) H 02/08/22 06:05 POC Glucose 181 mg/dl (70-99) H 02/08/22 07:19 Calcium 8.1 mg/dl (8.5-10.1) L 02/08/22 06:05 Phosphorus 2.3 mg/dl (2.5-4.9) L 02/08/22 06:05 Magnesium 1.8 mg/dl (1.7-2.4) 02/08/22 06:05 Total Bilirubin 1.4 mg/dl (0.2-1.0) H 02/08/22 06:05 AST 27 U/L (13-39) 02/08/22 06:05 ALT 9 U/L (7-52) 02/08/22 06:05 Alkaline Phosphatase 147 U/L (34-104) H 02/08/22 06:05 Ammonia 29.0 umol/L (18-72) 02/08/22 06:05 Total Protein 5.6 gm/dl (6.0-8.3) L 02/08/22 06:05 Albumin 2.9 gm/dl (3.4-5.0) L 02/08/22 06:05 Globulin 2.7 gm/dl (2.5-4.0) 02/08/22 06:05 Albumin/Globulin Ratio 1.1 (0.9-2) 02/08/22 06:05 25-OH Vitamin D Total 53.5 ng/ml (30-100) 02/06/22 07:37 Urine Color Yellow 02/05/22 03:18 Urine Appearance Clear (Clear) 02/05/22 03:18 Urine pH 7.5 (4.5-7.5) 02/05/22 03:18 Ur Specific [place] 1.008 (1.000-1.030) 02/05/22 03:18 Urine Protein Negative (Negative) 02/05/22 03:18 Urine Glucose (UA) Negative (Negative) 02/05/22 03:18 Urine Ketones Negative (Negative) 02/05/22 03:18 Urine Blood Negative (Negative) 02/05/22 03:18 Urine Nitrite Negative (Negative) 02/05/22 03:18 Urine Bilirubin Negative (Negative) 02/05/22 03:18 Urine Urobilinogen Negative (Negative) 02/05/22 03:18 Ur Leukocyte Esterase Negative (Negative) 02/05/22 03:18 SARS-CoV-2, RNA, NAAT NEGATIVE (NEGATIVE) 02/05/22 05:10 Blood Type O Negative 02/05/22 08:11 Antibody Screen POSITIVE A 02/05/22 08:11 Antibody Identification Anti-C Anti-D 02/05/22 08:11 Antibody Identification Anti-C Anti-D 02/05/22 08:11 Antibody ID Comment 02/05/22 08:11 Antigen Identification C Antigen - NEGATIVE 02/05/22 08:11 Crossmatch See Detail 02/05/22 08:[address] 02/05/22 03:[address] DOSE: 580.48 mGy.cm HISTORY: Fall. Head injury. Trauma TECHNIQUE: Multiaxial CT images of the head were performed without the use of intravenous contrast. Automated exposure control was utilized for this study. A dose lowering technique was utilized adhering to the principles of ALARA. Comparison: Head CT 12/12/2021. Findings: The paranasal sinuses and mastoid air cells are clear. The calvarium and skull base are intact. There is no mass, hematoma, midline shift, acute infarct. White matter hypodensity is nonspecific but suggestive of microvascular ischemic change. The ventricles and sulci demonstrate mild age-related involutional changes. 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 Impression: No significant change compared to the prior study. No acute intracranial abnormality. ACT 112: Negative or not required by law. Electronically signed by: Marquez Lindsay M.D. 02/05/2022 7:[address] 02/05/22 04:15 CT pelvis wo con CLINICAL HISTORY: fall COMPARISON STUDY: CT of the abdomen and pelvis January 23, 2022. TECHNIQUE: Axial images of the pelvis were obtained without IV contrast. Sagittal and coronal reconstructions were viewed. Automated exposure control was utilized for the study. A dose lowering technique was utilized adhering to the principles of ALARA. FINDINGS: Bladder is distended. Moderate stool within visualized portions of the colon is noted. Note is made of an acute displaced subcapital left femoral fracture. This is new since CT of January 23, 2022. Fracture is displaced approximately 2 cm. No additional acute fractures are identified on this examin ation. There is no proximal right femoral fracture. Sacroiliac joints and symphysis pubis are intact. Multilevel degenerative changes within visualized portions of the lumbar spine are noted with posterior decompression within the lower lumbar spine. IMPRESSION: Acute displaced subcapital left femoral fracture. ACT 112: Negative or not required by law. Electronically signed by: Mu Bonds M.D. 02/05/2022 7:30 AM Hip X-Ray 02/05/22 17:31 LEFT HIP 2 VIEWS CLINICAL HISTORY: Postoperative examination. FINDINGS: AP and crosstable lateral views of the left femur are compared to study dated 02/05/2022. A left hip arthroplasty is in near-anatomic alignment. No acute fracture is seen. Skin clips, soft tissue edema, and subcutaneous gas overlying the left hip are expected postoperative changes. IMPRESSION: Expected postoperative findings status post left hip arthroplasty. No acute fracture is seen. Electronically signed by: Berto Snow M.D. 02/05/2022 10:06 PM Chest X-Ray 02/07/22 08:31 XR chest 1V portable HISTORY: 71 years-old Female hypoxia acute hypoxia COMPARISON: Chest radiograph 02/05/2022 TECHNIQUE: Portable AP view of the chest FINDINGS: The cardiac silhouette is enlarged. Prior median sternotomy. The patient is rotated. Atherosclerosis of the thoracic aorta. Unchanged right hem idiaphragmatic elevation. Mild pulmonary vascular congestion. Linear right lung base opacities. Degenerative changes of the shoulders and spine with healed right-sided rib fractures. Cholecystectomy. IMPRESSION: 1. Cardiomegaly with pulmonary vascular congestion. 2. Unchanged right hemidiaphragmatic elevation with mild right lung base atelectasis. ACT 112: Negative or not required by law. The above report was generated using voice recognition software. It may contain grammatical, syntax or spelling errors. Electronically signed by: Tommie Loredo M.D. 02/07/2022 9:[address] 02/07/22 12:50 CT hip LT wo con HISTORY: 71 years-old Female anemia s/p L hip surgery follow-up study in a patient with an acute subcapital left femoral fracture with subsequent total joint arthroplasty. Acute postoperative anemia COMPARISON: Pelvis 02/05/2022, left hip radiographs 02/05/2022 TECHNIQUE: Multiple axial CT images of the left hip were obtained without the use of IV contrast. A dose lowering technique was used consistent with the principals of MELCHOR. FINDINGS: No acute intrapelvic abnormality identified. There is moderate colonic fecal retention. Gallagher catheter is noted within the urinary bladder lumen. Intraluminal air is likely secondary to instrumentation. Satisfactory alignment of the recently placed left hip total joint arthroplasty. Streak artifact from the hardware limits the study. No acute fracture or malalignment identified. Lateral skin daniel are present. Expected postoperative subcutaneous edema with deep tissue air within the subcutaneous tissues and musculature. Moderate atrophy of the hamstring suggestive of chronic injury. No large postoperative hematoma. There is a 1.2 x 4.6 x 5.7 cm collection distal air and likely hemorrhagic debris/fluid which tracks between the gluteus medius and minimus musculature on image 47 series 5. IMPRESSION: 1. Satisfactory alignment of the left hip total joint arthroplasty. No acute fracture identified. 2. Expected postoperative changes with a small postoperative collection interposed between the gluteus medius and minimus musculature measuring up to 5.7 cm. 3. No large postoperative hematoma. ACT 112: Negative or not required by law. The above report was generated using voice recognition software. It may contain grammatical, syntax or spelling errors. Electronically signed by: Tommie Loredo M.D. 02/07/2022 2:57 PM KUB X-Ray 02/07/22 17:08 KUB CLINICAL HISTORY: vomiting, abd. pain COMPARISON STUDY: CT of the abdomen and pelvis January 23, 2022. FINDINGS: Left hip arthroplasty is partially imaged. Skin daniel are present. Bowel gas pattern is normal. No evidence for a bowel obstruction. Note is made of a moderate amount stool within the colon and rectum. Gas within the bladder is again noted. This was shown on prior left head CT and due to indwelling [place]. IMPRESSION: 1. No evidence for a bowel obstruction. 2. Moderate amount of stool within the colon and rectum. ACT 112: Negative or not required by law. Electronically signed by: Mu Bonds M.D. 02/07/2022 5:52 PM Medications Administered Current Inpatient Medications Acetaminophen (Acetaminophen 325 Mg Tab) 325 mg PO Q6H PRN PRN Reason: Mild Pain Stop: 03/07/22 06:14 Last Admin: 02/08/22 07:48 Dose: 325 mg Aripiprazole (Aripiprazole 1 Mg/Ml Oral Soln 150 Ml Btl) 2 mg PO HS [facility] Stop: 03/07/22 20:59 Last Admin: 02/07/22 22:34 Dose: 2 mg Aspirin (Aspirin 81 Mg Ectab) 81 mg PO QAM [facility] Stop: 03/07/22 11:29 Last Admin: 02/07/22 08:06 Dose: 81 mg Atorvastatin Calcium (Atorvastatin 40 Mg Tab) 40 mg PO QAM [facility] Stop: 03/07/22 11:14 Last Admin: 02/07/22 08:06 Dose: 40 mg Bisacodyl (Bisacodyl 10 Mg Supp) 10 mg [place] DAILY PRN PRN Reason: Constipation Stop: 03/07/22 10:49 Dextrose (Dextrose 50% 50 Ml Syringe) 25 - 50 ml IV UD PRN; Protocol PRN Reason: Hypoglycemia Protocol Stop: 03/07/22 10:49 Doxycycline Hyclate (Doxycycline Hyclate 100 Mg Cap) 100 mg PO BID ANGELLA; Protocol Stop: 02/14/22 09:59 Last Admin: 02/07/22 21:58 Dose: 100 mg Enoxaparin Sodium (Enoxaparin Inj 30 Mg/0.3 Ml Syr) 30 mg SQ Q12H [facility] Stop: 03/08/22 07:59 Last Admin: 02/08/22 07:49 Dose: 30 mg Glucagon (Glucagon For Inj 1 Mg Vial) 1 mg SQ UD PRN; Protocol PRN Reason: Hypoglycemia Protocol Stop: 03/07/22 10:49 Glucose (Glucose 40% Gel 15 Gm Tube) 15 - 30 gm PO UD PRN; Protocol PRN Reason: Hypoglycemia Protocol Stop: 03/07/22 10:49 Glucose (Glucose 10 Tab/Tube) 4 - 8 tab PO UD PRN; Protocol PRN Reason: Hypoglycemia Treatment Stop: 03/07/22 10:49 Guaifenesin (Guaifenesin 600 Mg Tabcr) 600 mg PO Q12 [facility] Stop: 03/09/22 09:29 Last Admin: 02/07/22 21:59 Dose: 600 mg Promethazine HCl 12.5 mg/ (Sodium Chloride) 50.5 mls @ 202 mls/hr IV Q6H PRN PRN Reason: Nausea And Vomiting Stop: 03/07/22 06:14 Last Infusion: 02/07/22 19:38 Dose: Infused Ertapenem 1,000 mg/ Syringe 10 mls @ 2 mls/min IV Q24H [facility]; Protocol Stop: 02/16/22 08:59 Last Admin: 02/07/22 08:19 Dose: 2 mls/min Insulin Aspart (Insulin Aspart Per Unit) 0 units SC ACHS [facility] Stop: 03/07/22 11:29 Last Admin: 02/08/22 08:15 Dose: 2 units Insulin Glargine (Lantus Per Unit Charge) 10 units SQ BID [facility] Stop: 03/07/22 11:14 Last Admin: 02/08/22 08:26 Dose: 10 units Lactulose (Lactulose Syrup 30 Gm/45 Ml Udp) 30 gm PO BID [facility] Stop: 03/07/22 11:29 Last Admin: 02/07/22 22:09 Dose: 30 gm Lamotrigine (Lamotrigine 25 Mg Tab) 75 mg PO QAM [facility] Stop: 03/07/22 11:14 Last Admin: 02/07/22 08:05 Dose: 75 mg Lamotrigine (Lamotrigine 100 Mg Tab) 100 mg PO QAM [facility] Stop: 03/07/22 11:14 Last Admin: 02/07/22 08:18 Dose: 100 mg Lamotrigine (Lamotrigine 100 Mg Tab) 150 mg PO HS [facility] Stop: 03/07/22 20:59 Last Admin: 02/06/22 20:11 Dose: 150 mg Levothyroxine Sodium (Levothyroxine Sodium 88 Mcg Tablet) 88 mcg PO DAILYBB [facility] Stop: 03/07/22 11:14 Last Admin: 02/08/22 06:20 Dose: 88 mcg Lorazepam (Lorazepam 0.5 Mg Tab) 0.25 mg PO TID PRN PRN Reason: Anxiety Stop: 03/07/22 06:17 Metoprolol Succinate (Metoprolol Succ 50mg Ext Rel Tab) 50 mg PO QAM [facility] Stop: 03/07/22 11:14 Last Admin: 02/07/22 08:06 Dose: 50 mg Miscellaneous (Carbohydrates For Hypoglycemia ) 15 - 30 gm PO UD PRN PRN Reason: Hypoglycemia Protocol Stop: 03/07/22 10:49 Montelukast Sodium (Montelukast Sodium 10 Mg Tablet) 10 mg PO DAILY@1600 [facility] Stop: 03/07/22 15:59 Last Admin: 02/07/22 17:05 Dose: Not Given Morphine Sulfate (Morphine Sulfate 4 Mg/Ml 1 Ml Carp\Vial) 4 mg IV Q4H PRN PRN Reason: Pain Stop: 02/19/22 06:14 Last Admin: 02/05/22 08:21 Dose: 4 mg Morphine Sulfate (Morphine Sulfate Cr 15 Mg Tabcr) 15 mg PO BID [facility] Stop: 02/19/22 11:14 Last Admin: 02/08/22 08:26 Dose: 15 mg Naloxone HCl (Naloxone Hcl 0.4 Mg/1 Ml Vial/Carp) 0.1 mg IV UD PRN PRN Reason: Opiate Overdose Stop: 03/07/22 10:49 Oxybutynin Chloride (Oxybutynin Chloride Xl 5 Mg Tabcr) [facility] Stop: 03/07/22 11:14 Last Admin: 02/07/22 08:06 Dose: 10 mg Oxycodone HCl (Oxycodone Hcl Ir 5 Mg Tab (Immediate Release)) 5 mg PO Q4H PRN PRN Reason: Pain Stop: 02/19/22 06:14 Last Admin: 02/07/22 05:49 Dose: 5 mg Pantoprazole Sodium (Pantoprazole 40 Mg Tab) 40 mg PO DAILYBB [facility] Stop: 03/07/22 11:14 Last Admin: 02/08/22 06:20 Dose: 40 mg Rifaximin (Rifaximin 550 Mg Tablet) 550 mg PO BID [facility] Stop: 03/07/22 11:14 Last Admin: 02/07/22 21:59 Dose: 550 mg Spironolactone (Spironolactone 25 Mg Tab) [facility] Stop: 03/10/22 08:59 Tamsulosin HCl (Tamsulosin Hcl 0.4 Mg Cap) 0.4 mg PO QAM [facility] Stop: 03/07/22 11:14 Last Admin: 02/07/22 08:06 Dose: 0.4 mg Torsemide (Torsemide 20 Mg Tab) 20 mg PO QAM [facility] Stop: 03/10/22 08:59 Venlafaxine HCl (Venlafaxine Hcl Xr 150 Mg Capxr) 150 mg PO QAM [facility] Stop: 03/07/22 11:14 Last Admin: 02/07/22 08:06 Dose: 150 mg Venlafaxine HCl (Venlafaxine Hcl Xr 75 Mg Capxr) [facility] Stop: 03/07/22 11:14 Last Admin: 02/07/22 08:08 Dose: 75 mg
--- NOTE | 2022-02-08 09:42 | XRay Report ---
SINGLE VIEW CHEST CLINICAL HISTORY: Fever. FINDINGS: An AP, portable, upright chest radiograph is compared to study dated 02/07/2022 and correlate d with chest CT dated 10/20/2020. The patient is status post midline sternotomy. The heart is mildly e nlarged noting atherosclerotic calcification of the thoracic aorta. The pulmonary vasculature is nonc ongested. There is chronic elevation of the right hemidiaphragm with associated atelectasis. The lung s and pleural spaces are otherwise clear. No pneumothorax is seen. The skeletal structures are osteop enic. The bony thorax is grossly intact. Cholecystectomy clips are seen in the right upper quadrant. IMPRESSION: Cardiomegaly with no active disease in the chest. ACT 112: Negative or not required by law. Electronically signed by: Berto Snow M.D. 02/08/2022 9:40 AM
[2022-02-08] MEDS: ASPIRIN 81 MG ECTAB PO SCH (10:13)
[2022-02-08] MEDS: ATORVASTATIN 40 MG TAB PO SCH (10:13)
--- NOTE | 2022-02-08 10:13 | Orthopedic Progress Note ---
Date of Service February 08, 2022 Assessment & Plan (1) S/P hip hemiarthroplasty: Plan: Pt is post op day #3 s/p a Left hemiarthroplasty. She had been transfused yesterday and H&H has improved. She will need reinforcement for continuing with the abduction pillow and hip precautions. She will transition once medically stable to SNF for rehabilitation.she will continue with PT/OT. she will continue with aspirin and SCDs for DVt prophylaxis. We will continue to monitor CBC. Admission and Anticipated Discharge Date Admission Date: February 05, 2022 Subjective Pt is in bed and aide is present cleaning pt. Pt is alert . Pt did ask if she was able to go home . When her leg is moved she verbalized she has some pain. She denies any CP, SOB. Review of Systems Review of Systems: see HPI Physical Exam Physical Exam: Pt is sitting upright in bed. Abduction pillow is not in place. She is being cleaned by aide. She is alert during visit. Her incision is cover ed, provena wound vac is in place on Left posterior hip. resolving ecchymosis present distal to incision. Neg for warmth or erythema. Min edema in the LLE. calf is soft and nontender.skin is normal in temperature and color besides ecchymosis. 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 requires assistance with all ROM of the LEs. Results & Data ([facility]) Vital Signs (Past 12 Hours) Vital Signs Temp Pulse Resp BP Pulse Ox O2 Del Method 02/08/22 07:12 37.4 C 86 18 131/60 94 02/08/22 03:00 39.1 C H 103 H 18 139/63 94 02/07/22 23:08 37.4 C 99 H 16 155/80 H 99 Room Air Laboratory Results Lab Results 02/05/22 02/05/22 02/05/22 Range/Units 03:18 03:46 03:46 WBC 7.33 (4.8-10.8) K/ul RBC 5.08 (3.93-5.22) M/uL Hgb 12.1 (12.0-16.0) g/dl Hct 39.5 (34.1-44.9) % MCV 77.8 L (80.0-100.0) fL MCH 23.8 L (25.0-34.0) pg MCHC 30.6 L (32.0-36.0) g/dL RDW Std Deviation 50.6 H (36.4-46.3) fL RDW Coeff of Guillermo 18.2 H (11.5-14.5) % Plt Count 139 (130-400) K/uL MPV 10.2 (9.4-12.3) fL Immature Gran % (Auto) 1.5 % Neut % (Auto) 64.7 % Lymph % (Auto) 21.7 % [place] % (Auto) 7.4 % Eos % (Auto) 4.2 % Baso % (Auto) 0.5 % Neut # (Auto) 4.74 (1.4-6.5) K/uL Lymph # (Auto) 1.59 (1.2-3.4) K/uL [place] # (Auto) 0.54 (0.24-0.82) K/uL Eos # (Auto) 0.31 (0-0.50) K/uL Baso # (Auto) 0.04 (0-0.2) K/uL Immature Gran # (Auto) 0.11 H (0.00-0.02) K/uL PT 11.5 (9.0-12.0) Seconds INR 1.1 (0.9-1.1) Sodium (136-145) mmol/L Potassium (3.5-5.1) mmol/L Chloride (98-107) mmol/L Carbon Dioxide (21-32) mmol/L Anion Gap (3-11) BUN (6-23) mg/dl Creatinine (0.6-1.2) mg/dl Est Cr Clr Drug Dosing Est GFR ( Amer) ml/min Est GFR (Non-Af Amer) ml/min BUN/Creatinine Ratio (10-20) Glucose (70-99(Fasting)) mg/dl POC Glucose (70-99) mg/dl Calcium (8.5-10.1) mg/dl Phosphorus (2.5-4.9) mg/dl Magnesium (1.7-2.4) mg/dl Total Bilirubin (0.2-1.0) mg/dl AST (13-39) U/L ALT (7-52) U/L Alkaline Phosphatase (34-104) U/L Ammonia (18-72) umol/L Total Protein (6.0-8.3) gm/dl Albumin (3.4-5.0) gm/dl Globulin (2.5-4.0) gm/dl Albumin/Globulin Ratio (0.9-2) 25-OH Vitamin D Total (30-100) ng/ml Urine Color Yellow Urine Appearance Clear (Clear) Urine pH 7.5 (4.5-7.5) Ur Specific [place] 1.008 (1.000-1.030) Urine Protein Negative (Negative) Urine Glucose (UA) Negative (Negative) Urine Ketones Negative (Negative) Urine Blood Negative (Negative) Urine Nitrite Negative (Negative) Urine Bilirubin Negative (Negative) Urine Urobilinogen Negative (Negative) Ur Leukocyte Esterase Negative (Negative) SARS-CoV-2, RNA, NAAT (NEGATIVE) Blood Type Antibody Screen Antibody Identification Antibody ID Comment Antigen Identification Crossmatch 02/05/22 02/05/22 02/05/22 Range/Units 03:46 03:46 05:10 WBC (4.8-10.8) K/ul RBC (3.93-5.22) M/uL Hgb (12.0-16.0) g/dl Hct (34.1-44.9) % MCV (80.0-100.0) fL MCH (25.0-34.0) pg MCHC (32.0-36.0) g/dL RDW Std Deviation (36.4-46.3) fL RDW Coeff of Guillermo (11.5-14.5) % Plt Count (130-400) K/uL MPV (9.4-12.3) fL Immature Gran % (Auto) % Neut % (Auto) % Lymph % (Auto) % [place] % (Auto) % Eos % (Auto) % Baso % (Auto) % Neut # (Auto) (1.4-6.5) K/uL Lymph # (Auto) (1.2-3.4) K/uL [place] # (Auto) (0.24-0.82) K/uL Eos # (Auto) (0-0.50) K/uL Baso # (Auto) (0-0.2) K/uL Immature Gran # (Auto) (0.00-0.02) K/uL PT (9.0-12.0) Seconds INR (0.9-1.1) Sodium 133 L (136-145) mmol/L Potassium 3.8 (3.5-5.1) mmol/L Chloride 97 L (98-107) mmol/L Carbon Dioxide 29 (21-32) mmol/L Anion Gap 7 (3-11) BUN 9 (6-23) mg/dl Creatinine 1.03 (0.6-1.2) mg/dl Est Cr Clr Drug Dosing Not Reportable Est GFR ( Amer) 62.9 ml/min Est GFR (Non-Af Amer) 54.3 ml/min BUN/Creatinine Ratio 8.7 L (10-20) Glucose 117 H (70-99(Fasting)) mg/dl POC Glucose (70-99) mg/dl Calcium 9.0 (8.5-10.1) mg/dl Phosphorus (2.5-4.9) mg/dl Magnesium 2.1 (1.7-2.4) mg/dl Total Bilirubin 0.9 (0.2-1.0) mg/dl AST 54 H (13-39) U/L ALT 30 (7-52) U/L Alkaline Phosphatase 219 H (34-104) U/L Ammonia (18-72) umol/L Total Protein 6.8 (6.0-8.3) gm/dl Albumin 3.7 (3.4-5.0) gm/dl Globulin 3.1 (2.5-4.0) gm/dl Albumin/Globulin Ratio 1.2 (0.9-2) 25-OH Vitamin D Total (30-100) ng/ml Urine Color Urine Appearance (Clear) Urine pH (4.5-7.5) Ur Specific [place] (1.000-1.030) Urine Protein (Negative) Urine Glucose (UA) (Negative) Urine Ketones (Negative) Urine Blood (Negative) Urine Nitrite (Negative) Urine Bilirubin (Negative) Urine Urobilinogen (Negative) Ur Leukocyte Esterase (Negative) SARS-CoV-2, RNA, NAAT NEGATIVE (NEGATIVE) Blood Type Antibody Screen Antibody Identification Antibody ID Comment Antigen Identification Crossmatch 02/05/22 02/05/22 02/05/22 Range/Units 08:11 08:11 17:54 WBC (4.8-10.8) K/ul RBC (3.93-5.22) M/uL Hgb (12.0-16.0) g/dl Hct (34.1-44.9) % MCV (80.0-100.0) fL MCH (25.0-34.0) pg MCHC (32.0-36.0) g/dL RDW Std Deviation (36.4-46.3) fL RDW Coeff of Guillermo (11.5-14.5) % Plt Count (130-400) K/uL MPV (9.4-12.3) fL Immature Gran % (Auto) % Neut % (Auto) % Lymph % (Auto) % [place] % (Auto) % Eos % (Auto) % Baso % (Auto) % Neut # (Auto) (1.4-6.5) K/uL Lymph # (Auto) (1.2-3.4) K/uL [place] # (Auto) (0.24-0.82) K/uL Eos # (Auto) (0-0.50) K/uL Baso # (Auto) (0-0.2) K/uL Immature Gran # (Auto) (0.00-0.02) K/uL PT (9.0-12.0) Seconds INR (0.9-1.1) Sodium (136-145) mmol/L Potassium (3.5-5.1) mmol/L Chloride (98-107) mmol/L Carbon Dioxide (21-32) mmol/L Anion Gap (3-11) BUN (6-23) mg/dl Creatinine (0.6-1.2) mg/dl Est Cr Clr Drug Dosing Est GFR ( Amer) ml/min Est GFR (Non-Af Amer) ml/min BUN/Creatinine Ratio (10-20) Glucose (70-99(Fasting)) mg/dl POC Glucose 133 H (70-99) mg/dl Calcium (8.5-10.1) mg/dl Phosphorus (2.5-4.9) mg/dl Magnesium (1.7-2.4) mg/dl Total Bilirubin (0.2-1.0) mg/dl AST (13-39) U/L ALT (7-52) U/L Alkaline Phosphatase (34-104) U/L Ammonia 12.0 L (18-72) umol/L Total Protein (6.0-8.3) gm/dl Albumin (3.4-5.0) gm/dl Globulin (2.5-4.0) gm/dl Albumin/Globulin Ratio (0.9-2) 25-OH Vitamin D Total (30-100) ng/ml Urine Color Urine Appearance (Clear) Urine pH (4.5-7.5) Ur Specific [place] (1.000-1.030) Urine Protein (Negative) Urine Glucose (UA) (Negative) Urine Ketones (Negative) Urine Blood (Negative) Urine Nitrite (Negative) Urine Bilirubin (Negative) Urine Urobilinogen (Negative) Ur Leukocyte Esterase (Negative) SARS-CoV-2, RNA, NAAT (NEGATIVE) Blood Type O Negative Antibody Screen POSITIVE A Antibody Identification Anti-D Antibody ID Comment Antigen Identification C Antigen - NEGATIVE Crossmatch See Detail 02/05/22 02/06/22 02/06/22 Range/Units 20:37 07:37 07:37 WBC 10.26 (4.8-10.8) K/ul RBC 3.49 L (3.93-5.22) M/uL Hgb 8.4 L D (12.0-16.0) g/dl Hct 26.8 L (34.1-44.9) % MCV 76.8 L (80.0-100.0) fL MCH 24.1 L (25.0-34.0) pg MCHC 31.3 L (32.0-36.0) g/dL RDW Std Deviation 50.1 H (36.4-46.3) fL RDW Coeff of Guillermo 18.3 H (11.5-14.5) % Plt Count 122 L (130-400) K/uL MPV 9.5 (9.4-12.3) fL Immature Gran % (Auto) 1.0 % Neut % (Auto) 79.4 % Lymph % (Auto) 10.5 % [place] % (Auto) 8.5 % Eos % (Auto) 0.2 % Baso % (Auto) 0.4 % Neut # (Auto) 8.15 H (1.4-6.5) K/uL Lymph # (Auto) 1.08 L (1.2-3.4) K/uL [place] # (Auto) 0.87 H (0.24-0.82) K/uL Eos # (Auto) 0.02 (0-0.50) K/uL Baso # (Auto) 0.04 (0-0.2) K/uL Immature Gran # (Auto) 0.10 H (0.00-0.02) K/uL PT (9.0-12.0) Seconds INR (0.9-1.1) Sodium 134 L (136-145) mmol/L Potassium 4.2 (3.5-5.1) mmol/L Chloride 102 (98-107) mmol/L Carbon Dioxide 26 (21-32) mmol/L Anion Gap 6 (3-11) BUN 12 (6-23) mg/dl Creatinine 0.96 (0.6-1.2) mg/dl Est Cr Clr Drug Dosing 70.6 Est GFR ( Amer) 68.5 ml/min Est GFR (Non-Af Amer) 59.1 ml/min BUN/Creatinine Ratio 12.5 (10-20) Glucose 168 H (70-99(Fasting)) mg/dl POC Glucose 159 H (70-99) mg/dl Calcium 8.2 L (8.5-10.1) mg/dl Phosphorus (2.5-4.9) mg/dl Magnesium (1.7-2.4) mg/dl Total Bilirubin (0.2-1.0) mg/dl AST (13-39) U/L ALT (7-52) U/L Alkaline Phosphatase (34-104) U/L Ammonia (18-72) umol/L Total Protein (6.0-8.3) gm/dl Albumin (3.4-5.0) gm/dl Globulin (2.5-4.0) gm/dl Albumin/Globulin Ratio (0.9-2) 25-OH Vitamin D Total (30-100) ng/ml Urine Color Urine Appearance (Clear) Urine pH (4.5-7.5) Ur Specific [place] (1.000-1.030) Urine Protein (Negative) Urine Glucose (UA) (Negative) Urine Ketones (Negative) Urine Blood (Negative) Urine Nitrite (Negative) Urine Bilirubin (Negative) Urine Urobilinogen (Negative) Ur Leukocyte Esterase (Negative) SARS-CoV-2, RNA, NAAT (NEGATIVE) Blood Type Antibody Screen Antibody Identification Antibody ID Comment Antigen Identification Crossmatch 02/06/22 02/06/22 02/06/22 Range/Units 07:37 07:37 11:26 WBC (4.8-10.8) K/ul RBC (3.93-5.22) M/uL Hgb (12.0-16.0) g/dl Hct (34.1-44.9) % MCV (80.0-100.0) fL MCH (25.0-34.0) pg MCHC (32.0-36.0) g/dL RDW Std Deviation (36.4-46.3) fL RDW Coeff of Guillermo (11.5-14.5) % Plt Count (130-400) K/uL MPV (9.4-12.3) fL Immature Gran % (Auto) % Neut % (Auto) % Lymph % (Auto) % [place] % (Auto) % Eos % (Auto) % Baso % (Auto) % Neut # (Auto) (1.4-6.5) K/uL Lymph # (Auto) (1.2-3.4) K/uL [place] # (Auto) (0.24-0.82) K/uL Eos # (Auto) (0-0.50) K/uL Baso # (Auto) (0-0.2) K/uL Immature Gran # (Auto) (0.00-0.02) K/uL PT (9.0-12.0) Seconds INR (0.9-1.1) Sodium (136-145) mmol/L Potassium (3.5-5.1) mmol/L Chloride (98-107) mmol/L Carbon Dioxide (21-32) mmol/L Anion Gap (3-11) BUN (6-23) mg/dl Creatinine (0.6-1.2) mg/dl Est Cr Clr Drug Dosing Est GFR ( Amer) ml/min Est GFR (Non-Af Amer) ml/min BUN/Creatinine Ratio (10-20) Glucose (70-99(Fasting)) mg/dl POC Glucose 179 H 205 H (70-99) mg/dl Calcium (8.5-10.1) mg/dl Phosphorus (2.5-4.9) mg/dl Magnesium (1.7-2.4) mg/dl Total Bilirubin (0.2-1.0) mg/dl AST (13-39) U/L ALT (7-52) U/L Alkaline Phosphatase (34-104) U/L Ammonia (18-72) umol/L Total Protein (6.0-8.3) gm/dl Albumin (3.4-5.0) gm/dl Globulin (2.5-4.0) gm/dl Albumin/Globulin Ratio (0.9-2) 25-OH Vitamin D Total 53.5 (30-100) ng/ml Urine Color Urine Appearance (Clear) Urine pH (4.5-7.5) Ur Specific [place] (1.000-1.030) Urine Protein (Negative) Urine Glucose (UA) (Negative) Urine Ketones (Negative) Urine Blood (Negative) Urine Nitrite (Negative) Urine Bilirubin (Negative) Urine Urobilinogen (Negative) Ur Leukocyte Esterase (Negative) SARS-CoV-2, RNA, NAAT (NEGATIVE) Blood Type Antibody Screen Antibody Identification Antibody ID Comment Antigen Identification Crossmatch 02/06/22 02/06/22 02/06/22 Range/Units 11:41 16:15 16:30 WBC (4.8-10.8) K/ul RBC (3.93-5.22) M/uL Hgb 7.7 L (12.0-16.0) g/dl Hct 24.6 L (34.1-44.9) % MCV (80.0-100.0) fL MCH (25.0-34.0) pg MCHC (32.0-36.0) g/dL RDW Std Deviation (36.4-46.3) fL RDW Coeff of Guillermo (11.5-14.5) % Plt Count (130-400) K/uL MPV (9.4-12.3) fL Immature Gran % (Auto) % Neut % (Auto) % Lymph % (Auto) % [place] % (Auto) % Eos % (Auto) % Baso % (Auto) % Neut # (Auto) (1.4-6.5) K/uL Lymph # (Auto) (1.2-3.4) K/uL [place] # (Auto) (0.24-0.82) K/uL Eos # (Auto) (0-0.50) K/uL Baso # (Auto) (0-0.2) K/uL Immature Gran # (Auto) (0.00-0.02) K/uL PT (9.0-12.0) Seconds INR (0.9-1.1) Sodium (136-145) mmol/L Potassium (3.5-5.1) mmol/L Chloride (98-107) mmol/L Carbon Dioxide (21-32) mmol/L Anion Gap (3-11) BUN (6-23) mg/dl Creatinine (0.6-1.2) mg/dl Est Cr Clr Drug Dosing Est GFR ( Amer) ml/min Est GFR (Non-Af Amer) ml/min BUN/Creatinine Ratio (10-20) Glucose (70-99(Fasting)) mg/dl POC Glucose 173 H (70-99) mg/dl Calcium (8.5-10.1) mg/dl Phosphorus (2.5-4.9) mg/dl Magnesium (1.7-2.4) mg/dl Total Bilirubin (0.2-1.0) mg/dl AST (13-39) U/L ALT (7-52) U/L Alkaline Phosphatase (34-104) U/L Ammonia 33.0 (18-72) umol/L Total Protein (6.0-8.3) gm/dl Albumin (3.4-5.0) gm/dl Globulin (2.5-4.0) gm/dl Albumin/Globulin Ratio (0.9-2) 25-OH Vitamin D Total (30-100) ng/ml Urine Color Urine Appearance (Clear) Urine pH (4.5-7.5) Ur Specific [place] (1.000-1.030) Urine Protein (Negative) Urine Glucose (UA) (Negative) Urine Ketones (Negative) Urine Blood (Negative) Urine Nitrite (Negative) Urine Bilirubin (Negative) Urine Urobilinogen (Negative) Ur Leukocyte Esterase (Negative) SARS-CoV-2, RNA, NAAT (NEGATIVE) Blood Type Antibody Screen Antibody Identification Antibody ID Comment Antigen Identification Crossmatch 02/06/22 02/07/22 02/07/22 Range/Units 20:00 07:32 07:32 WBC 9.32 (4.8-10.8) K/ul RBC 3.08 L (3.93-5.22) M/uL Hgb 7.4 L (12.0-16.0) g/dl Hct 23.3 L (34.1-44.9) % MCV 75.6 L (80.0-100.0) fL MCH 24.0 L (25.0-34.0) pg MCHC 31.8 L (32.0-36.0) g/dL RDW Std Deviation 50.0 H (36.4-46.3) fL RDW Coeff of Guillermo 18.5 H (11.5-14.5) % Plt Count 113 L (130-400) K/uL MPV 10.3 (9.4-12.3) fL Immature Gran % (Auto) % Neut % (Auto) % Lymph % (Auto) % [place] % (Auto) % Eos % (Auto) % Baso % (Auto) % Neut # (Auto) (1.4-6.5) K/uL Lymph # (Auto) (1.2-3.4) K/uL [place] # (Auto) (0.24-0.82) K/uL Eos # (Auto) (0-0.50) K/uL Baso # (Auto) (0-0.2) K/uL Immature Gran # (Auto) (0.00-0.02) K/uL PT (9.0-12.0) Seconds INR (0.9-1.1) Sodium 128 L (136-145) mmol/L Potassium 4.2 (3.5-5.1) mmol/L Chloride 96 L (98-107) mmol/L Carbon Dioxide 27 (21-32) mmol/L Anion Gap 5 (3-11) BUN 14 (6-23) mg/dl Creatinine 1.00 (0.6-1.2) mg/dl Est Cr Clr Drug Dosing 67.3 Est GFR ( Amer) 65.2 ml/min Est GFR (Non-Af Amer) 56.2 ml/min BUN/Creatinine Ratio 14.0 (10-20) Glucose 146 H (70-99(Fasting)) mg/dl POC Glucose 219 H (70-99) mg/dl Calcium 8.3 L (8.5-10.1) mg/dl Phosphorus 2.5 (2.5-4.9) mg/dl Magnesium 1.9 (1.7-2.4) mg/dl Total Bilirubin 1.3 H (0.2-1.0) mg/dl AST 35 (13-39) U/L ALT 10 (7-52) U/L Alkaline Phosphatase 136 H (34-104) U/L Ammonia (18-72) umol/L Total Protein 5.4 L (6.0-8.3) gm/dl Albumin 2.9 L (3.4-5.0) gm/dl Globulin 2.5 (2.5-4.0) gm/dl Albumin/Globulin Ratio 1.2 (0.9-2) 25-OH Vitamin D Total (30-100) ng/ml Urine Color Urine Appearance (Clear) Urine pH (4.5-7.5) Ur Specific [place] (1.000-1.030) Urine Protein (Negative) Urine Glucose (UA) (Negative) Urine Ketones (Negative) Urine Blood (Negative) Urine Nitrite (Negative) Urine Bilirubin (Negative) Urine Urobilinogen (Negative) Ur Leukocyte Esterase (Negative) SARS-CoV-2, RNA, NAAT (NEGATIVE) Blood Type Antibody Screen Antibody Identification Antibody ID Comment Antigen Identification Crossmatch 02/07/22 02/07/22 02/07/22 Range/Units 07:32 07:54 11:21 WBC (4.8-10.8) K/ul RBC (3.93-5.22) M/uL Hgb (12.0-16.0) g/dl Hct (34.1-44.9) % MCV (80.0-100.0) fL MCH (25.0-34.0) pg MCHC (32.0-36.0) g/dL RDW Std Deviation (36.4-46.3) fL RDW Coeff of Guillermo (11.5-14.5) % Plt Count (130-400) K/uL MPV (9.4-12.3) fL Immature Gran % (Auto) % Neut % (Auto) % Lymph % (Auto) % [place] % (Auto) % Eos % (Auto) % Baso % (Auto) % Neut # (Auto) (1.4-6.5) K/uL Lymph # (Auto) (1.2-3.4) K/uL [place] # (Auto) (0.24-0.82) K/uL Eos # (Auto) (0-0.50) K/uL Baso # (Auto) (0-0.2) K/uL Immature Gran # (Auto) (0.00-0.02) K/uL PT (9.0-12.0) Seconds INR (0.9-1.1) Sodium (136-145) mmol/L Potassium (3.5-5.1) mmol/L Chloride (98-107) mmol/L Carbon Dioxide (21-32) mmol/L Anion Gap (3-11) BUN (6-23) mg/dl Creatinine (0.6-1.2) mg/dl Est Cr Clr Drug Dosing Est GFR ( Amer) ml/min Est GFR (Non-Af Amer) ml/min BUN/Creatinine Ratio (10-20) Glucose (70-99(Fasting)) mg/dl POC Glucose 156 H 188 H (70-99) mg/dl Calcium (8.5-10.1) mg/dl Phosphorus (2.5-4.9) mg/dl Magnesium (1.7-2.4) mg/dl Total Bilirubin (0.2-1.0) mg/dl AST (13-39) U/L ALT (7-52) U/L Alkaline Phosphatase (34-104) U/L Ammonia 18.0 (18-72) umol/L Total Protein (6.0-8.3) gm/dl Albumin (3.4-5.0) gm/dl Globulin (2.5-4.0) gm/dl Albumin/Globulin Ratio (0.9-2) 25-OH Vitamin D Total (30-100) ng/ml Urine Color Urine Appearance (Clear) Urine pH (4.5-7.5) Ur Specific [place] (1.000-1.030) Urine Protein (Negative) Urine Glucose (UA) (Negative) Urine Ketones (Negative) Urine Blood (Negative) Urine Nitrite (Negative) Urine Bilirubin (Negative) Urine Urobilinogen (Negative) Ur Leukocyte Esterase (Negative) SARS-CoV-2, RNA, NAAT (NEGATIVE) Blood Type Antibody Screen Antibody Identification Antibody ID Comment Antigen Identification Crossmatch 02/07/22 02/07/22 02/07/22 Range/Units 12:23 12:23 16:22 WBC (4.8-10.8) K/ul RBC (3.93-5.22) M/uL Hgb 7.7 L (12.0-16.0) g/dl Hct 24.1 L (34.1-44.9) % MCV (80.0-100.0) fL MCH (25.0-34.0) pg MCHC (32.0-36.0) g/dL RDW Std Deviation (36.4-46.3) fL RDW Coeff of Guillermo (11.5-14.5) % Plt Count (130-400) K/uL MPV (9.4-12.3) fL Immature Gran % (Auto) % Neut % (Auto) % Lymph % (Auto) % [place] % (Auto) % Eos % (Auto) % Baso % (Auto) % Neut # (Auto) (1.4-6.5) K/uL Lymph # (Auto) (1.2-3.4) K/uL [place] # (Auto) (0.24-0.82) K/uL Eos # (Auto) (0-0.50) K/uL Baso # (Auto) (0-0.2) K/uL Immature Gran # (Auto) (0.00-0.02) K/uL PT (9.0-12.0) Seconds INR (0.9-1.1) Sodium 129 L (136-145) mmol/L Potassium 3.7 (3.5-5.1) mmol/L Chloride 95 L (98-107) mmol/L Carbon Dioxide 26 (21-32) mmol/L Anion Gap 8 (3-11) BUN 14 (6-23) mg/dl Creatinine 0.96 (0.6-1.2) mg/dl Est Cr Clr Drug Dosing 70.1 Est GFR ( Amer) 68.5 ml/min Est GFR (Non-Af Amer) 59.1 ml/min BUN/Creatinine Ratio 14.6 (10-20) Glucose 171 H (70-99(Fasting)) mg/dl POC Glucose 174 H (70-99) mg/dl Calcium 8.5 (8.5-10.1) mg/dl Phosphorus (2.5-4.9) mg/dl Magnesium (1.7-2.4) mg/dl Total Bilirubin (0.2-1.0) mg/dl AST (13-39) U/L ALT (7-52) U/L Alkaline Phosphatase (34-104) U/L Ammonia (18-72) umol/L Total Protein (6.0-8.3) gm/dl Albumin (3.4-5.0) gm/dl Globulin (2.5-4.0) gm/dl Albumin/Globulin Ratio (0.9-2) 25-OH Vitamin D Total (30-100) ng/ml Urine Color Urine Appearance (Clear) Urine pH (4.5-7.5) Ur Specific [place] (1.000-1.030) Urine Protein (Negative) Urine Glucose (UA) (Negative) Urine Ketones (Negative) Urine Blood (Negative) Urine Nitrite (Negative) Urine Bilirubin (Negative) Urine Urobilinogen (Negative) Ur Leukocyte Esterase (Negative) SARS-CoV-2, RNA, NAAT (NEGATIVE) Blood Type Antibody Screen Antibody Identification Antibody ID Comment Antigen Identification Crossmatch 02/08/22 02/08/22 02/08/22 Range/Units 06:05 06:05 06:05 WBC 16.56 H (4.8-10.8) K/ul RBC 3.45 L (3.93-5.22) M/uL Hgb 8.6 L (12.0-16.0) g/dl Hct 26.4 L (34.1-44.9) % MCV 76.5 L (80.0-100.0) fL MCH 24.9 L (25.0-34.0) pg MCHC 32.6 (32.0-36.0) g/dL RDW Std Deviation 50.4 H (36.4-46.3) fL RDW Coeff of Guillermo 18.5 H (11.5-14.5) % Plt Count 118 L (130-400) K/uL MPV 10.6 (9.4-12.3) fL Immature Gran % (Auto) % Neut % (Auto) % Lymph % (Auto) % [place] % (Auto) % Eos % (Auto) % Baso % (Auto) % Neut # (Auto) (1.4-6.5) K/uL Lymph # (Auto) (1.2-3.4) K/uL [place] # (Auto) (0.24-0.82) K/uL Eos # (Auto) (0-0.50) K/uL Baso # (Auto) (0-0.2) K/uL Immature Gran # (Auto) (0.00-0.02) K/uL PT (9.0-12.0) Seconds INR (0.9-1.1) Sodium 129 L (136-145) mmol/L Potassium 3.3 L (3.5-5.1) mmol/L Chloride 95 L (98-107) mmol/L Carbon Dioxide 25 (21-32) mmol/L Anion Gap 9 (3-11) BUN 15 (6-23) mg/dl Creatinine 0.90 (0.6-1.2) mg/dl Est Cr Clr Drug Dosing 72.4 Est GFR ( Amer) 74.0 ml/min Est GFR (Non-Af Amer) 63.9 ml/min BUN/Creatinine Ratio 16.7 (10-20) Glucose 175 H (70-99(Fasting)) mg/dl POC Glucose (70-99) mg/dl Calcium 8.1 L (8.5-10.1) mg/dl Phosphorus 2.3 L (2.5-4.9) mg/dl Magnesium 1.8 (1.7-2.4) mg/dl Total Bilirubin 1.4 H (0.2-1.0) mg/dl AST 27 (13-39) U/L ALT 9 (7-52) U/L Alkaline Phosphatase 147 H (34-104) U/L Ammonia 29.0 (18-72) umol/L Total Protein 5.6 L (6.0-8.3) gm/dl Albumin 2.9 L (3.4-5.0) gm/dl Globulin 2.7 (2.5-4.0) gm/dl Albumin/Globulin Ratio 1.1 (0.9-2) 25-OH Vitamin D Total (30-100) ng/ml Urine Color Urine Appearance (Clear) Urine pH (4.5-7.5) Ur Specific [place] (1.000-1.030) Urine Protein (Negative) Urine Glucose (UA) (Negative) Urine Ketones (Negative) Urine Blood (Negative) Urine Nitrite (Negative) Urine Bilirubin (Negative) Urine Urobilinogen (Negative) Ur Leukocyte Esterase (Negative) SARS-CoV-2, RNA, NAAT (NEGATIVE) Blood Type Antibody Screen Antibody Identification Antibody ID Comment Antigen Identification Crossmatch 02/08/22 Range/Units 07:19 WBC (4.8-10.8) K/ul RBC (3.93-5.22) M/uL Hgb (12.0-16.0) g/dl Hct (34.1-44.9) % MCV (80.0-100.0) fL MCH (25.0-34.0) pg MCHC (32.0-36.0) g/dL RDW Std Deviation (36.4-46.3) fL RDW Coeff of Guillermo (11.5-14.5) % Plt Count (130-400) K/uL MPV (9.4-12.3) fL Immature Gran % (Auto) % Neut % (Auto) % Lymph % (Auto) % [place] % (Auto) % Eos % (Auto) % Baso % (Auto) % Neut # (Auto) (1.4-6.5) K/uL Lymph # (Auto) (1.2-3.4) K/uL [place] # (Auto) (0.24-0.82) K/uL Eos # (Auto) (0-0.50) K/uL Baso # (Auto) (0-0.2) K/uL Immature Gran # (Auto) (0.00-0.02) K/uL PT (9.0-12.0) Seconds INR (0.9-1.1) Sodium (136-145) mmol/L Potassium (3.5-5.1) mmol/L Chloride (98-107) mmol/L Carbon Dioxide (21-32) mmol/L Anion Gap (3-11) BUN (6-23) mg/dl Creatinine (0.6-1.2) mg/dl Est Cr Clr Drug Dosing Est GFR ( Amer) ml/min Est GFR (Non-Af Amer) ml/min BUN/Creatinine Ratio (10-20) Glucose (70-99(Fasting)) mg/dl POC Glucose 181 H (70-99) mg/dl Calcium (8.5-10.1) mg/dl Phosphorus (2.5-4.9) mg/dl Magnesium (1.7-2.4) mg/dl Total Bilirubin (0.2-1.0) mg/dl AST (13-39) U/L ALT (7-52) U/L Alkaline Phosphatase (34-104) U/L Ammonia (18-72) umol/L Total Protein (6.0-8.3) gm/dl Albumin (3.4-5.0) gm/dl Globulin (2.5-4.0) gm/dl Albumin/Globulin Ratio (0.9-2) 25-OH Vitamin D Total (30-100) ng/ml Urine Color Urine Appearance (Clear) Urine pH (4.5-7.5) Ur Specific [place] (1.000-1.030) Urine Protein (Negative) Urine Glucose (UA) (Negative) Urine Ketones (Negative) Urine Blood (Negative) Urine Nitrite (Negative) Urine Bilirubin (Negative) Urine Urobilinogen (Negative) Ur Leukocyte Esterase (Negative) SARS-CoV-2, RNA, NAAT (NEGATIVE) Blood Type Antibody Screen Antibody Identification Antibody ID Comment Antigen Identification Crossmatch
[2022-02-08] MEDS: DOXYCYCLINE HYCLATE 100 MG CAP PO SCH (10:14)
[2022-02-08] MEDS: guaiFENesin 600 MG TABCR PO SCH ×2 (10:14→20:21)
[2022-02-08] MEDS: lamoTRIgine 100 MG TAB PO SCH (10:15)
[2022-02-08] MEDS: METOPROLOL SUCC 50MG EXT REL TAB PO SCH (10:15)
[2022-02-08] MEDS: rifAXIMin 550 MG TABLET PO SCH ×2 (10:16→20:21)
[2022-02-08] MEDS: OXYBUTYNIN CHLORIDE XL 5 MG TABCR PO SCH (10:16)
[2022-02-08] MEDS: TAMSULOSIN HCL 0.4 MG CAP PO SCH (10:17)
[2022-02-08] MEDS: VENLAFAXINE HCL XR 75 MG CAPXR PO SCH (10:17)
[2022-02-08] MEDS: TORSEMIDE 20 MG TAB PO SCH (10:17)
[2022-02-08] MEDS: LACTULOSE SYRUP 30 GM/45 ML UDP PO SCH ×2 (10:26→20:23)
--- NOTE | 2022-02-08 10:41 | Nephrology Progress Note ---
Date of Service February 08, 2022 Assessment & Plan Admission and Anticipated Discharge Date Admission Date: February 05, 2022 Subjective S--somewhat lethargic. Labs stable. PHYSICAL EXAMINATION: GENERAL: Elderly white female who is morbidly obese. She is very confused and unable to give me any history. She does seem to be having significant pain based on her facial expression. HEENT: Mucous membrane is moist. NECK: Supple. No jugular venous distention. CHEST: Decreased breath sounds with poor quality examination. HEART: Regular rate and rhythm. Systolic murmur heard. ABDOMEN: Obese, soft, nontender. EXTREMITIES: Show 1+ edema bilaterally. However, very hard to assess fluid status given her morbid obesity. NEUROLOGIC: She is awake and alert with eyes open; however, not following command or cooperating with the question. LABORATORY TEST: na 129 ASSESSMENT AND PLAN: A 71-year-old female with chronic mild hyponatremia, now admitted after a fall and sustaining fracture in her hip, status post surgery. I have been consulted for [id number] hyponatremia. Hyponatremia: As stated, this is [id number]. Hypervolemic Hyponatremia. She does have chronic mild hyponatremia with serum sodium ranging from 126 to 135, on admission was 133, but after torsemide was held and IV fluid given, it dropped to 128. The patient has evidence of congestive heart failure/fluid overload. We can do the next laboratory in the morning--daily. Continue torsemide 20 and aldactone 50. Results & Data ([facility]) Vital Signs (Past 12 Hours) Vital Signs Temp Pulse Resp BP Pulse Ox O2 Del Method 02/08/22 07:12 37.4 C 86 18 131/60 94 02/08/22 03:00 39.1 C H 103 H 18 139/63 94 02/07/22 23:08 37.4 C 99 H 16 155/80 H 99 Room Air
[2022-02-08] MEDS: SPIRONOLACTONE 25 MG TAB PO SCH (10:45)
[2022-02-08] MEDS: ERTAPENEM SODIUM 1,000 MG in SYRINGE 0 ML IV SCH (10:45)
[2022-02-08] MEDS ORDERED: FUROSEMIDE INJ 20 MG/2 ML VIAL IV ONE (10:59)
[2022-02-08] MEDS: MoRPHine SULFATE 4 MG/ML 1 ML CARP\\VIAL IV PRN (12:09)
[2022-02-08] MEDS ORDERED: VANCOMYCIN CONSULT ACTIVE PRN ×2 (14:02→14:11)
[2022-02-08] MEDS ORDERED: VANCOMYCIN HCL 2,000 MG in SODIUM CHLORIDE 0.9% 500 ML IV ONE (14:15)
--- NOTE | 2022-02-08 15:11 | Pharmacy Report ---
Pharmacy PK ABX Note - Date of Service February 08, 2022 - Assessment and Plan Assessment 71 year old F previously receiving ertapenem/doxycycline transitioning to vancomycin/meropenem for acute worsening. Pertinent microbiologic data includes: ESBL E coli growing in outpatient urine culture, possible surgical site infection. Plan Vancomycin * Loading dose: 2000 mg IV x 1 * Maintenance dose: 1000 mg IV every 12 hours * Regimen is predicted to achieve target AUC/GALINDO of 400-600 mg/L.hr * Random level to be ordered if vancomycin continued >48 hours Pharmacy will continue to follow and will adjust dose/frequency as necessary. Thank you. Pharmacy has transitioned to AUC monitoring for vancomycin. AUC/GALINDO is the preferred PK/PD target and is associated with decreased risk of nephrotoxicity compared to traditional trough targets.
[2022-02-08] MEDS: MEROPENEM 500 MG in SYRINGE 0 ML IV SCH ×2 (15:14→20:21)
[2022-02-08] MEDS: MONTELUKAST SODIUM 10 MG TABLET PO SCH (17:26)
[2022-02-08] MEDS: ARIPIprazole 1 MG/ML ORAL SOLN 150 ML BTL PO SCH (20:22)
[2022-02-09] MEDS: VANCOMYCIN HCL 1,000 MG in SODIUM CHLORIDE 0.9% 250 ML IV SCH ×2 (02:55→18:15)
[2022-02-09] MEDS: MEROPENEM 500 MG in SYRINGE 0 ML IV SCH ×4 (02:55→21:39)
[2022-02-09] MEDS: LEVOTHYROXINE SODIUM 88 MCG TABLET PO SCH (05:48)
[2022-02-09] MEDS: PANTOprazole 40 MG TAB PO SCH (05:49)
[2022-02-09 05:55] LABS: Hematocrit (blood only) 26.1 % (34.1-44.9); Hemoglobin 8.3 g/dl (12.0-16.0); Mean Corpuscular Hemoglobin 24.8 pg (25.0-34.0); Mean Corpuscular Hgb Conc 31.8 g/dL (32.0-36.0); Mean Corpuscular Volume 77.9 fL (80.0-100.0); Mean Platelet Volume 9.9 fL (9.4-12.3); Platelet Count 116 K/uL (130-400); RDW Coefficient of Variation 18.9 % (11.5-14.5); RDW Standard Deviation 51.4 fL (36.4-46.3); Red Blood Count 3.35 M/uL (3.93-5.22); White Blood Count 12.54 K/ul (4.8-10.8)
[2022-02-09] MEDS: ACETAMINOPHEN 325 MG TAB PO PRN (06:12)
[2022-02-09 06:20] LABS: Magnesium 1.5 mg/dl (1.7-2.4); Phosphorus 2.6 mg/dl (2.5-4.9)
[2022-02-09] MEDS ORDERED: MAGNESIUM SULFATE / D5W 1 GM/100 ML BAG IV ONE (07:35)
--- NOTE | 2022-02-09 07:37 | Hospitalist Progress Note ---
Date of Service February 09, 2022 Assessment & Plan (1) Hip fracture, left: Plan: Secondary to fall History ambulatory dysfunction/Ptelkhv-Lxepy-Lzjft disease Patient predisposed by lethargy secondary to multiple neuropsychotropic and narcotic medications Rule out hepatic encephalopathy as contributory factor to lethargy history NAFLD cirrhosis Medical telemetry given episodic lethargy and cardiac history Check ammonia level, facilitate lactulose and rifaximin Ammonia level wnl, cont. to monitor Appropriate to hold narcotics/neuropsychotropic meds for sedation confusion History ESBL E. coli UTI ongoing Ertapenem Rx Ucultx (01/16) positive for ESBL E. coli, and outpatient record Per family, started on ertapenem on Friday (1 week ago) Repeat UA negative Pt cont. to have intermittent fevers Continued ertapenem, added doxy for now blood cultures (01/31) - negative (02/06)- NG in 48 hrs 02/08 - WBC elevated at 16,000, switched ertapenem and Doxy to meropenem plus vancomycin 02/09 WBC down to 12,000 ID consult - pending Orthopedics consult Re: Left hip fracture ([facility] as per family's request.) p Left Hip Hemiarthroplasty(Left) - Ivan Cha MD on 02/05/[address] hip obtained given anemia, and persistent fevers IMPRESSION: 1. Satisfactory alignment of the left hip total joint arthroplasty. No acute fracture identified. 2. Expected postoperative changes with a small postoperative collection interposed between the gluteus medius and minimus musculature measuring up to 5.7 cm. 3. No large postoperative hematoma. Cardiology preop eval requested given RCRI of at least 3 points (Class IV risk) if surgery recommended and patient/family agreeable to procedural risks. Pt high risk for procedure not only d/t cardiac dz but her other med. conditions. Chronic diastolic heart failure (EF 55 to 59%, TTE 09/2021) hx CAD status post CABG/stent Moderate Hypertension, stable Hyperlipidemia, on statin Rx Torsemide and spironolactone resumed Acute blood loss anemia post-op vs. dilutional pre-op Hgb ~12, post-op ~8 cont. to monitor H&H, transfuse if Hgb <7.5 s/p 1 unit of pRBC - current Hgb 8.3 Bipolar disorder/OCD, at baseline DM2 insulin requiring, well-controlled as of recent hemoglobin A1c of 11 December 2021 Basal insulin adjusted for n.p.o. status, ISS BG goal 110-140 Chronic hyponatremia cont. to monitor Hypervolemic hyponatremia, sodium improved after Lasix Resumed torsemide and spironolactone Past history DVT as per records DVT prophylaxis. lovenox (per ortho) Full code Patient's daughters: Ms. Carolyn Burciaga, contact #[phone] Ms. Yarelis Burciaga, contact #[phone]. Admission and Anticipated Discharge Date Admission Date: February 05, 2022 Subjective Patient seen in follow-up for hip fracture, status postsurgical repair p Left Hip Hemiarthroplasty(Left) - Ivan Cha MD on 02/05/22 Currently lying in bed, in no acute distress She is able to answer some simple questions appropriately, appears little more alert today Yesterday afternoon was on room air, now on supplemental oxygen again Currently has no complaints, but reports that she feels " suspicious" - per daughters this is common when her psych meds on hold Cont. w/ low grade fever Antibiotics changed yesterday to meropenem and Vanco, WBC improved Review of Systems Review of Systems: All systems reviewed & are unremarkable except as noted in Subjective Physical Exam Physical Exam: GENERAL: morbidly obese F, in NAD, on RA HEENT: NC/AT, [place] palpebral conjunctivae NECK : Supple CHEST : Decreased breath sounds, + min. crackles, no wheezing HEART : RRR, systolic murmur ABDOMEN: +bowel sounds, nontender, obese, soft : mejia catheter placed SKIN: Normal color, warm EXTREMITIES : Minimal LE swelling, left hip tenderness (s/p surgery), does not move LLE (hx of CMT - baseline per ortho), moves RLE NEUROLOGIC : Awake, able to answer some simple questions appropriately, more alert than yesterday, no facial asymmetry Results & Data Results & Data ([facility]) Vital Signs (Past 12 Hours) Vital Signs Temp Pulse Pulse Resp BP Pulse Ox Pulse Ox 02/09/22 07:00 98 H 02/09/22 03:05 37.9 C H 101 H 20 112/58 L 93 02/09/22 00:33 95 H 02/08/22 23:00 98 02/08/22 23:20 37.9 C H 94 H 18 105/61 96 02/08/22 20:00 02/08/22 19:36 37.2 C 94 H 18 116/88 94 O2 Del Method O2 Del Method O2 Flow Rate O2 Flow Rate 02/09/22 07:00 02/09/22 03:05 Nasal Cannula 3.0 02/09/22 00:33 02/08/22 23:00 Nasal Cannula 3 02/08/22 23:20 Nasal Cannula 3 02/08/22 20:00 Nasal Cannula 3 02/08/22 19:36 Room Air Laboratory Results 02/09/22 02/09/22 02/09/22 Range/Units 07:41 07:26 05:41 WBC (4.8-10.8) K/ul RBC (3.93-5.22) M/uL Hgb (12.0-16.0) g/dl Hct (34.1-44.9) % MCV (80.0-100.0) fL MCH (25.0-34.0) pg MCHC (32.0-36.0) g/dL RDW Std Deviation (36.4-46.3) fL RDW Coeff of Guillermo (11.5-14.5) % Plt Count (130-400) K/uL MPV (9.4-12.3) fL Sodium 130 L (136-145) mmol/L Potassium 3.6 (3.5-5.1) mmol/L Chloride 95 L (98-107) mmol/L Carbon Dioxide 26 (21-32) mmol/L Anion Gap 9 (3-11) BUN 17 (6-23) mg/dl Creatinine 0.94 (0.6-1.2) mg/dl Est Cr Clr Drug Dosing 69.4 ml/min Est GFR ( Amer) 70.2 ml/min Est GFR (Non-Af Amer) 60.6 ml/min BUN/Creatinine Ratio 18.1 (10-20) Glucose 142 H (70-99(Fasting)) mg/dl POC Glucose 182 H (70-99) mg/dl Calcium 8.0 L (8.5-10.1) mg/dl Phosphorus (2.5-4.9) mg/dl Magnesium (1.7-2.4) mg/dl Ammonia 25.0 (18-72) umol/L Procalcitonin (0-0.5) ng/ml 02/09/22 02/09/22 02/08/22 Range/Units 05:41 05:41 20:24 WBC 12.54 H (4.8-10.8) K/ul RBC 3.35 L (3.93-5.22) M/uL Hgb 8.3 L (12.0-16.0) g/dl Hct 26.1 L (34.1-44.9) % MCV 77.9 L (80.0-100.0) fL MCH 24.8 L (25.0-34.0) pg MCHC 31.8 L (32.0-36.0) g/dL RDW Std Deviation 51.4 H (36.4-46.3) fL RDW Coeff of Guillermo 18.9 H (11.5-14.5) % Plt Count 116 L (130-400) K/uL MPV 9.9 (9.4-12.3) fL Sodium (136-145) mmol/L Potassium (3.5-5.1) mmol/L Chloride (98-107) mmol/L Carbon Dioxide (21-32) mmol/L Anion Gap (3-11) BUN (6-23) mg/dl Creatinine (0.6-1.2) mg/dl Est Cr Clr Drug Dosing ml/min Est GFR ( Amer) ml/min Est GFR (Non-Af Amer) ml/min BUN/Creatinine Ratio (10-20) Glucose (70-99(Fasting)) mg/dl POC Glucose 186 H (70-99) mg/dl Calcium (8.5-10.1) mg/dl Phosphorus 2.6 (2.5-4.9) mg/dl Magnesium 1.5 L (1.7-2.4) mg/dl Ammonia (18-72) umol/L Procalcitonin (0-0.5) ng/ml 02/08/22 02/08/22 02/08/22 Range/Units 16:20 14:41 11:22 WBC (4.8-10.8) K/ul RBC (3.93-5.22) M/uL Hgb (12.0-16.0) g/dl Hct (34.1-44.9) % MCV (80.0-100.0) fL MCH (25.0-34.0) pg MCHC (32.0-36.0) g/dL RDW Std Deviation (36.4-46.3) fL RDW Coeff of Guillermo (11.5-14.5) % Plt Count (130-400) K/uL MPV (9.4-12.3) fL Sodium (136-145) mmol/L Potassium (3.5-5.1) mmol/L Chloride (98-107) mmol/L Carbon Dioxide (21-32) mmol/L Anion Gap (3-11) BUN (6-23) mg/dl Creatinine (0.6-1.2) mg/dl Est Cr Clr Drug Dosing ml/min Est GFR ( Amer) ml/min Est GFR (Non-Af Amer) ml/min BUN/Creatinine Ratio (10-20) Glucose (70-99(Fasting)) mg/dl POC Glucose 179 H 160 H (70-99) mg/dl Calcium (8.5-10.1) mg/dl Phosphorus (2.5-4.9) mg/dl Magnesium (1.7-2.4) mg/dl Ammonia (18-72) umol/L Procalcitonin 0.90 H (0-0.5) ng/ml Medications Administered Current Inpatient Medications Acetaminophen (Acetaminophen 325 Mg Tab) 325 mg PO Q6H PRN PRN Reason: Mild Pain Stop: 03/07/22 06:14 Last Admin: 02/09/22 06:12 Dose: 325 mg Aripiprazole (Aripiprazole 1 Mg/Ml Oral Soln 150 Ml Btl) 2 mg PO [facility] Stop: 03/07/22 20:59 Last Admin: 02/08/22 20:22 Dose: 2 mg Aspirin (Aspirin 81 Mg Ectab) 81 mg PO [facility] Stop: 03/07/22 11:29 Last Admin: 02/08/22 10:13 Dose: 81 mg Atorvastatin Calcium (Atorvastatin 40 Mg Tab) [facility] Stop: 03/07/22 11:14 Last Admin: 02/08/22 10:13 Dose: 40 mg Bisacodyl (Bisacodyl 10 Mg Supp) 10 mg WI DAILY PRN PRN Reason: Constipation Stop: 03/07/22 10:49 Dextrose (Dextrose 50% 50 Ml Syringe) 25 - 50 ml IV UD PRN; Protocol PRN Reason: Hypoglycemia Protocol Stop: 03/07/22 10:49 Enoxaparin Sodium (Enoxaparin Inj 30 Mg/0.3 Ml Syr) 30 mg SQ Q12H [facility] Stop: 03/08/22 07:59 Last Admin: 02/08/22 20:21 Dose: 30 mg Glucagon (Glucagon For Inj 1 Mg Vial) 1 mg SQ UD PRN; Protocol PRN Reason: Hypoglycemia Protocol Stop: 03/07/22 10:49 Glucose (Glucose 40% Gel 15 Gm Tube) 15 - 30 gm PO UD PRN; Protocol PRN Reason: Hypoglycemia Protocol Stop: 03/07/22 10:49 Glucose (Glucose 10 Tab/Tube) 4 - 8 tab PO UD PRN; Protocol PRN Reason: Hypoglycemia Treatment Stop: 03/07/22 10:49 Guaifenesin (Guaifenesin 600 Mg Tabcr) 600 mg PO Q12 [facility] Stop: 03/09/22 09:29 Last Admin: 02/08/22 20:21 Dose: 600 mg Promethazine HCl 12.5 mg/ (Sodium Chloride) 50.5 mls @ 202 mls/hr IV Q6H PRN PRN Reason: Nausea And Vomiting Stop: 03/07/22 06:14 Last Infusion: 02/07/22 19:38 Dose: Infused Meropenem 500 mg/ Syringe 10 mls @ 2 mls/min IV Q6H [facility]; Protocol Stop: 02/15/22 13:59 Last Admin: 02/09/22 02:55 Dose: 2 mls/min Vancomycin HCl 1,000 mg/ (Sodium Chloride) 270 mls @ 200 mls/hr IV Q12H [facility] Stop: 02/16/22 02:59 Last Infusion: 02/09/22 04:42 Dose: Infused Magnesium Sulfate/Dextrose (Magnesium Sulfate / D5w) 1 gm in 100 mls @ 50 mls/hr IV ONE ONE Stop: 02/09/22 09:34 Insulin Aspart (Insulin Aspart Per Unit) 0 units SC ACHS [facility] Stop: 03/07/22 11:29 Last Admin: 02/08/22 20:43 Dose: 2 units Insulin Glargine (Lantus Per Unit Charge) 10 units SQ BID [facility] Stop: 03/07/22 11:14 Last Admin: 02/08/22 20:43 Dose: 10 units Lactulose (Lactulose Syrup 30 Gm/45 Ml Udp) 30 gm PO BID [facility] Stop: 03/07/22 11:29 Last Admin: 02/08/22 20:23 Dose: 30 gm Lamotrigine (Lamotrigine 25 Mg Tab) 75 mg PO QAM [facility] Stop: 03/07/22 11:14 Last Admin: 02/07/22 08:05 Dose: 75 mg Lamotrigine (Lamotrigine 100 Mg Tab) [facility] [place] Stop: 03/07/22 11:14 Last Admin: 02/08/22 10:15 Dose: 100 mg Lamotrigine (Lamotrigine 100 Mg Tab) 150 mg PO HS [facility] Stop: 03/07/22 20:59 Last Admin: 02/06/22 20:11 Dose: 150 mg Levothyroxine Sodium (Levothyroxine Sodium 88 Mcg Tablet) 88 mcg PO DAILYBB [facility] Stop: 03/07/22 11:14 Last Admin: 02/09/22 05:48 Dose: 88 mcg Lorazepam (Lorazepam 0.5 Mg Tab) 0.25 mg PO TID PRN PRN Reason: Anxiety Stop: 03/07/22 06:17 Metoprolol Succinate (Metoprolol Succ 50mg Ext Rel Tab) 50 mg PO [facility] Stop: 03/07/22 11:14 Last Admin: 02/08/22 10:15 Dose: 50 mg Miscellaneous (Carbohydrates For Hypoglycemia ) 15 - 30 gm PO UD PRN PRN Reason: Hypoglycemia Protocol Stop: 03/07/22 10:49 Miscellaneous Information (Vancomycin Consult Active) 1 each N/A UD PRN PRN Reason: Consult Stop: 03/10/22 14:10 Montelukast Sodium (Montelukast Sodium 10 Mg Tablet) 10 mg PO DAILY@1600 [facility] Stop: 03/07/22 15:59 Last Admin: 02/08/22 17:26 Dose: 10 mg Morphine Sulfate (Morphine Sulfate 4 Mg/Ml 1 Ml Carp\\Vial) 4 mg IV Q4H PRN PRN Reason: Pain Stop: 02/19/22 06:14 Last Admin: 02/08/22 12:09 Dose: 4 mg Morphine Sulfate (Morphine Sulfate Cr 15 Mg Tabcr) 15 mg PO BID [facility] Stop: 02/19/22 11:14 Last Admin: 02/08/22 20:21 Dose: 15 mg Naloxone HCl (Naloxone Hcl 0.4 Mg/1 Ml Vial/Carp) 0.1 mg IV UD PRN PRN Reason: Opiate Overdose Stop: 03/07/22 10:49 Oxybutynin Chloride (Oxybutynin Chloride Xl 5 Mg Tabcr) 10 mg PO QAM [facility] Stop: 03/07/22 11:14 Last Admin: 02/08/22 10:16 Dose: 10 mg Oxycodone HCl (Oxycodone Hcl Ir 5 Mg Tab (Immediate Release)) 5 mg PO Q4H PRN PRN Reason: Pain Stop: 02/19/22 06:14 Last Admin: 02/07/22 05:49 Dose: 5 mg Pantoprazole Sodium (Pantoprazole 40 Mg Tab) 40 mg PO DAILYBB [facility] Stop: 03/07/22 11:14 Last Admin: 02/09/22 05:49 Dose: 40 mg Rifaximin (Rifaximin 550 Mg Tablet) 550 mg PO BID [facility] Stop: 03/07/22 11:14 Last Admin: 02/08/22 20:21 Dose: 550 mg Spironolactone (Spironolactone 25 Mg Tab) [facility] [place] [facility] Stop: 03/10/22 08:59 Last Admin: 02/08/22 10:45 Dose: 50 mg Tamsulosin HCl (Tamsulosin Hcl 0.4 Mg Cap) 0.4 mg [facility] Stop: 03/07/22 11:14 Last Admin: 02/08/22 10:17 Dose: 0.4 mg Torsemide (Torsemide 20 Mg Tab) 20 [facility] Stop: 03/10/22 08:59 Last Admin: 02/08/22 10:17 Dose: 20 mg Venlafaxine HCl (Venlafaxine Hcl Xr 150 Mg Capxr) 150 mg [facility] Stop: 03/07/22 11:14 Last Admin: 02/07/22 08:06 Dose: 150 mg Venlafaxine HCl (Venlafaxine Hcl Xr 75 Mg Capxr) 75 mg PO QAM [facility] Stop: 03/07/22 11:14 Last Admin: 02/08/22 10:17 Dose: 75 mg
[2022-02-09] MEDS: INSULIN ASPART PER UNIT SC SCH ×4 (08:25→21:10)
[2022-02-09 09:30] LABS: BUN Creatinine Ratio 18.1 (10-20); Creatinine Clr Calc Pharmacy 69.4 ml/min; Est GFR (African American) 70.2 ml/min; Est GFR (Non-African American) 60.6 ml/min; Potassium 3.6 mmol/L (3.5-5.1)
--- NOTE | 2022-02-09 10:11 | Nephrology Progress Note ---
Date of Service February 09, 2022 Assessment & Plan (1) Hyponatremia: Plan: Patient with hypervolemic hyponatremia. Sodium is up trending at 130 today. We will continue current diuretics. Will give potassium chloride 40 mEq daily. Continue to monitor sodium daily. Patient should be on a fluid restriction of 1.2 L daily. (2) Acute on chronic diastolic heart failure with preserved ejection fraction: Plan: She will continue torsemide and Aldactone at current doses. No changes. Monitor daily weight if able Admission and Anticipated Discharge Date Admission Date: February 05, 2022 Subjective Seen in follow-up for hyponatremia She had left hip hemiarthroplasty. She feels better. No shortness of breath. Sodium is up trending Review of Systems Review of Systems: All other systems were reviewed and negative except as noted in HPI Physical Exam Physical Exam: General exam: Appears comfortable, no acute distress HEENT: Pupils are equal and reactive to light Neck: No JVD, neck is supple trachea is midline Respiratory system: Clear breath sounds bilaterally. Gastrointestinal: Abdomen is soft, non distended, non tender, bowel sounds are present CVS: Regular rate and rhythm. No murmurs, rubs or gallops Musculoskeletal: No joint or muscle tenderness Extremities: Non tender, no edema, peripheral pulses are present Neuro: Oriented, no tremors, no focal neurological deficits Skin: No rashes Results & Data [facility]) Vital Signs (Past 12 Hours) Vital Signs Temp Pulse Pulse Pulse Resp BP BP 02/09/22 07:40 102 H 16 144/102 H 02/09/22 07:00 98 H 02/09/22 03:05 37.9 C H 101 H 20 112/58 L 02/09/22 00:33 95 H 02/08/22 23:00 02/08/22 23:20 37.9 C H 94 H 18 105/61 Pulse Ox Pulse Ox O2 Del Method O2 Del Method O2 Flow Rate O2 Flow Rate 02/09/22 07:40 02/09/22 07:00 02/09/22 03:05 93 Nasal Cannula 3.0 02/09/22 00:33 02/08/22 23:00 98 Nasal Cannula 3 02/08/22 23:20 96 Nasal Cannula 3 Laboratory Results 02/09/22 07:41 02/09/22 02/09/22 05:41 05:41 WBC 12.54 H RBC 3.35 L MCV 77.9 L MCH 24.8 L MCHC 31.8 L RDW Std Deviation 51.4 H RDW Coeff of Guillermo 18.9 H Plt Count 116 L MPV 9.9 Phosphorus 2.6
[2022-02-09] MEDS: LANTUS PER UNIT CHARGE SQ SCH ×2 (10:35→21:11)
--- NOTE | 2022-02-09 10:50 | Orthopedic Progress Note ---
Date of Service February 09, 2022 Assessment & Plan (1) S/P hip hemiarthroplasty: Plan: Patient was seen in conjunction with Dr. Edge today. Patient developed a mild fever last night and it persisted today. She is also hypertensive and mildly tachycardic. Left hip surgical site shows no signs of infection. She has no significant ecchymosis, and it has not progressed since 2 days ago. Her lethargy persists. I did emphasize that she needs to participate with PT, and should at least make efforts to sit in a bedside chair. Patient flatly refused. She stated she wanted to go home. She will require chcf placement or rehab placement. Continue IV antibiotics. Her wound continues to look very good. Her wound VAC continues to have minimal output. Due to her CMT, patient has chronic plantarflexed position of her ankles. She would benefit from night splints to prevent flexion contractures as she has not been out of bed for several days. I will speak with therapy and determine how to order these. We will continue to follow while she is admitted. Admission and Anticipated Discharge Date Admission Date: February 05, 2022 Subjective Patient was seen in her room this morning. She remains pleasantly confused. She is sitting up. She states she did not eat breakfast but cannot tell me why. When asked the year, she thought it was 2019. When asked location, she thought she was at [place]. She later corrected herself and stated she was in the hospital. She currently denies any pain. She denies any shortness of breath. She states she has a lot on her mind. When asked what was bothering her, she cannot tell me. She is febrile today. Physical Exam Physical Exam: General: Well-developed, obese elderly white female, in no acute distress. Sitting in bed. Pleasantly confused. Skin: Warm and dry with good turgor. Left hip has the Prevena wound VAC in place. It is functioning. She has mild ecchymosis present around the surgical incision. There is no leakage. She has no significant drainage within her wound VAC tubing. Musculoskeletal: Patient has no motor function of the foot or ankle, consistent with baseline. She is unwilling to move her hip or knee. Passively I am able to flex her hip with minimal discomfort. Internal and external rotation/logrolling does generate some discomfort, though it is less than earlier in the week. Neurologic: Gross sensation is intact across the left leg by soft touch. Peripheral pulses are 2+. Results & Data ([facility]) Vital Signs (Past 12 Hours) Vital Signs Temp Pulse Pulse Pulse Resp BP BP 02/09/22 07:40 102 H 16 144/102 H 02/09/22 07:00 98 H 02/09/22 03:05 37.9 C H 101 H 20 112/58 L 02/09/22 00:33 95 H 02/08/22 23:00 02/08/22 23:20 37.9 C H 94 H 18 105/61 Pulse Ox Pulse Ox O2 Del Method O2 Del Method O2 Flow Rate O2 Flow Rate 02/09/22 07:40 02/09/22 07:00 02/09/22 03:05 93 Nasal Cannula 3.0 02/09/22 00:33 02/08/22 23:00 98 Nasal Cannula 3 02/08/22 23:20 96 Nasal Cannula 3 Laboratory Results CBC obtained today shows a white count of 12.5. Improved since yesterday. Hemoglobin 8.3 and hematocrit 26.1. PRP is relatively unremarkable. Glucose of 142.
[2022-02-09] MEDS: MoRPHine SULFATE CR 15 MG TABCR PO SCH ×2 (11:07→21:10)
[2022-02-09] MEDS: METOPROLOL SUCC 50MG EXT REL TAB PO SCH (11:07)
[2022-02-09] MEDS: OXYBUTYNIN CHLORIDE XL 5 MG TABCR PO SCH (11:08)
[2022-02-09] MEDS: lamoTRIgine 100 MG TAB PO SCH ×2 (11:08→20:26)
[2022-02-09] MEDS: VENLAFAXINE HCL XR 75 MG CAPXR PO SCH (11:09)
[2022-02-09] MEDS: TAMSULOSIN HCL 0.4 MG CAP PO SCH (11:09)
[2022-02-09] MEDS: rifAXIMin 550 MG TABLET PO SCH ×2 (11:09→21:12)
[2022-02-09] MEDS: guaiFENesin 600 MG TABCR PO SCH ×2 (11:09→21:11)
[2022-02-09] MEDS: TORSEMIDE 20 MG TAB PO SCH (11:09)
[2022-02-09] MEDS: SPIRONOLACTONE 25 MG TAB PO SCH (11:09)
[2022-02-09] MEDS: ASPIRIN 81 MG ECTAB PO SCH (11:09)
[2022-02-09] MEDS: ATORVASTATIN 40 MG TAB PO SCH (11:10)
[2022-02-09] MEDS: ENOXAPARIN INJ 30 MG/0.3 ML SYR SQ SCH ×2 (11:10→21:12)
[2022-02-09] MEDS: LACTULOSE SYRUP 30 GM/45 ML UDP PO SCH ×2 (11:11→21:11)
[2022-02-09] MEDS: POTASSIUM CHLORIDE CRTAB 20 MEQ TABCR PO SCH (11:17)
[2022-02-09] MEDS: MAGNESIUM OXIDE 400 MG TAB PO SCH (11:18)
[2022-02-09] MEDS: LORazepam 0.5 MG TAB PO PRN (11:39)
[2022-02-09] MEDS: oxyCODONE HCL IR 5 MG TAB (IMMEDIATE RELEASE) PO PRN (13:02)
[2022-02-09] MEDS: MONTELUKAST SODIUM 10 MG TABLET PO SCH (18:15)
[2022-02-09] MEDS ORDERED: VENLAFAXINE HCL XR 75 MG CAPXR PO ONE (18:45)
[2022-02-09] MEDS: ARIPIprazole 1 MG/ML ORAL SOLN 150 ML BTL PO SCH (21:13)
[2022-02-10] MEDS: MEROPENEM 500 MG in SYRINGE 0 ML IV SCH ×4 (01:59→20:58)
[2022-02-10] MEDS ORDERED: VANCOMYCIN LEVEL ONE ×2 (02:30→12:30)
[2022-02-10] MEDS: VANCOMYCIN HCL 1,000 MG in SODIUM CHLORIDE 0.9% 250 ML IV SCH (02:50)
[2022-02-10] MEDS: PANTOprazole 40 MG TAB PO SCH (04:47)
[2022-02-10] MEDS: LEVOTHYROXINE SODIUM 88 MCG TABLET PO SCH (04:47)
[2022-02-10 06:48] LABS: Hematocrit (blood only) 24.3 % (34.1-44.9); Hemoglobin 7.9 g/dl (12.0-16.0); Mean Corpuscular Hemoglobin 25.2 pg (25.0-34.0); Mean Corpuscular Hgb Conc 32.5 g/dL (32.0-36.0); Mean Corpuscular Volume 77.6 fL (80.0-100.0); Mean Platelet Volume 10.1 fL (9.4-12.3); Platelet Count 116 K/uL (130-400); RDW Coefficient of Variation 19.2 % (11.5-14.5); RDW Standard Deviation 53.1 fL (36.4-46.3); Red Blood Count 3.13 M/uL (3.93-5.22)
[2022-02-10 07:02] LABS: BUN Creatinine Ratio 18.2 (10-20); Calcium 7.7 mg/dl (8.5-10.1); Creatinine Clr Calc Pharmacy 87.6 ml/min; Est GFR (African American) 89.4 ml/min; Est GFR (Non-African American) 77.1 ml/min; Magnesium 1.7 mg/dl (1.7-2.4); Phosphorus 2.6 mg/dl (2.5-4.9); Potassium 3.4 mmol/L (3.5-5.1)
--- NOTE | 2022-02-10 07:50 | Hospitalist Progress Note ---
Date of Service February 10, 2022 Assessment & Plan (1) Hip fracture, left: Plan: Secondary to fall History ambulatory dysfunction/Obihejp-Kwxvy-Xlujt disease Patient predisposed by lethargy secondary to multiple neuropsychotropic and narcotic medications Rule out hepatic encephalopathy as contributory factor to lethargy history NAFLD cirrhosis Medical telemetry given episodic lethargy and cardiac history Check ammonia level, facilitate lactulose and rifaximin Ammonia level wnl, cont. to monitor Appropriate to hold narcotics/neuropsychotropic meds for sedation confusion History ESBL E. coli UTI ongoing Ertapenem Rx Ucultx (01/16) positive for ESBL E. coli, and outpatient record Per family, started on ertapenem on Friday (1 week ago) Repeat UA negative Pt cont. to have intermittent fevers Continued ertapenem, added doxy for now blood cultures (01/31) - negative (02/06)- NG in 48 hrs 02/08 - WBC elevated at 16,000, switched ertapenem and Doxy to meropenem plus vancomycin 02/09 WBC down to 12,000 02/10 WBC normalized - 8,600 ID consult - pending Orthopedics consult Re: Left hip fracture ([facility] as per family's request.) p Left Hip Hemiarthroplasty(Left) - Ivan Cha MD on 02/05/[address] hip obtained given anemia, and persistent fevers IMPRESSION: 1. Satisfactory alignment of the left hip total joint arthroplasty. No acute fracture identified. 2. Expected postoperative changes with a small postoperative collection interposed between the gluteus medius and minimus musculature measuring up to 5.7 cm. 3. No large postoperative hematoma. Cardiology preop eval requested given RCRI of at least 3 points (Class IV risk) if surgery recommended and patient/family agreeable to procedural risks. Pt high risk for procedure not only d/t cardiac dz but her other med. conditions. Chronic diastolic heart failure (EF 55 to 59%, TTE 09/2021) hx CAD status post CABG/stent Moderate Hypertension, stable Hyperlipidemia, on statin Rx Torsemide and spironolactone resumed Acute blood loss anemia post-op vs. dilutional pre-op Hgb ~12, post-op ~8 cont. to monitor H&H, transfuse if Hgb <7.5 s/p 1 unit of pRBC ->Hgb 8.3 Current Hgb 7.9 Bipolar disorder/OCD, at baseline DM2 insulin requiring, well-controlled as of recent hemoglobin A1c of 11 December 2021 Basal insulin adjusted for n.p.o. status, ISS BG goal 110-140 Chronic hyponatremia cont. to monitor Hypervolemic hyponatremia, sodium improved after Lasix Resumed torsemide and spironolactone FR 1.2L Past history DVT as per records DVT prophylaxis. lovenox (per ortho) Full code Patient's daughters: Ms. Carolyn Burciaga, contact #[phone] Ms. Yarelis Burciaga, contact #[phone]. Admission and Anticipated Discharge Date Admission Date: February 05, 2022 Subjective Patient seen in follow-up for hip fracture, status postsurgical repair p Left Hip Hemiarthroplasty(Left) - Ivan Cha MD on 02/05/22 Currently lying in bed, in no acute distress She is the most alert I have seen her. She is alert and oriented and answering questions appropriately. Currently breathing comfortably on room air Afebrile, however temperature slightly elevated at 37.6 Celsius WBC normalized Review of Systems Review of Systems: All systems reviewed & are unremarkable except as noted in Subjective Physical Exam Physical Exam: GENERAL: morbidly obese F, in NAD, on RA HEENT: NC/AT, Edith Endave palpebral conjunctivae NECK : Supple CHEST : CTAB, no wheezing HEART : RRR, systolic murmur ABDOMEN: +bowel sounds, nontender, obese, soft : mejia catheter placed SKIN: Normal color, warm EXTREMITIES : Minimal LE swelling, left hip tenderness (s/p surgery), does not move LLE (hx of CMT - baseline per ortho), moves RLE NEUROLOGIC : Awake, able to answer simple questions appropriately, much more alert today, no facial asymmetry Results & Data Results & Data ([facility]) Vital Signs (Past 12 Hours) Vital Signs Temp Pulse Pulse Pulse Resp BP BP 02/10/22 07:00 101 H 02/10/22 07:27 37.6 C H 105 H 20 119/47 L 02/10/22 03:33 37.3 C 113 H 20 149/65 H 02/10/22 00:46 107 H 02/09/22 23:20 37.4 C 105 H 20 142/70 H Pulse Ox O2 Del Method 02/10/22 07:00 02/10/22 07:27 94 Room Air 02/10/22 03:33 91 Room Air 02/10/22 00:46 02/09/22 23:20 100 Room Air Laboratory Results 02/10/22 02/10/22 02/10/22 Range/Units 07:20 06:32 06:32 WBC (4.8-10.8) K/ul RBC (3.93-5.22) M/uL Hgb (12.0-16.0) g/dl Hct (34.1-44.9) % MCV (80.0-100.0) fL MCH (25.0-34.0) pg MCHC (32.0-36.0) g/dL RDW Std Deviation (36.4-46.3) fL RDW Coeff of Guillermo (11.5-14.5) % Plt Count (130-400) K/uL MPV (9.4-12.3) fL Sodium 130 L (136-145) mmol/L Potassium 3.4 L (3.5-5.1) mmol/L Chloride 96 L (98-107) mmol/L Carbon Dioxide 27 (21-32) mmol/L Anion Gap 7 (3-11) BUN 14 (6-23) mg/dl Creatinine 0.77 (0.6-1.2) mg/dl Est Cr Clr Drug Dosing 87.6 ml/min Est GFR ( Amer) 89.4 ml/min Est GFR (Non-Af Amer) 77.1 ml/min BUN/Creatinine Ratio 18.2 (10-20) Glucose 132 H (70-99(Fasting)) mg/dl POC Glucose 159 H (70-99) mg/dl Calcium 7.7 L (8.5-10.1) mg/dl Phosphorus 2.6 (2.5-4.9) mg/dl Magnesium 1.7 (1.7-2.4) mg/dl Ammonia 23.0 (18-72) umol/L 02/10/22 02/09/22 02/09/22 Range/Units 06:32 20:38 11:31 WBC 8.60 (4.8-10.8) K/ul RBC 3.13 L (3.93-5.22) M/uL Hgb 7.9 L (12.0-16.0) g/dl Hct 24.3 L (34.1-44.9) % MCV 77.6 L (80.0-100.0) fL MCH 25.2 (25.0-34.0) pg MCHC 32.5 (32.0-36.0) g/dL RDW Std Deviation 53.1 H (36.4-46.3) fL RDW Coeff of Guillermo 19.2 H (11.5-14.5) % Plt Count 116 L (130-400) K/uL MPV 10.1 (9.4-12.3) fL Sodium (136-145) mmol/L Potassium (3.5-5.1) mmol/L Chloride (98-107) mmol/L Carbon Dioxide (21-32) mmol/L Anion Gap (3-11) BUN (6-23) mg/dl Creatinine (0.6-1.2) mg/dl Est Cr Clr Drug Dosing ml/min Est GFR ( Amer) ml/min Est GFR (Non-Af Amer) ml/min BUN/Creatinine Ratio (10-20) Glucose (70-99(Fasting)) mg/dl POC Glucose 196 H 160 H (70-99) mg/dl Calcium (8.5-10.1) mg/dl Phosphorus (2.5-4.9) mg/dl Magnesium (1.7-2.4) mg/dl Ammonia (18-72) umol/L 02/09/22 Range/Units 07:41 WBC (4.8-10.8) K/ul RBC (3.93-5.22) M/uL Hgb (12.0-16.0) g/dl Hct (34.1-44.9) % MCV (80.0-100.0) fL MCH (25.0-34.0) pg MCHC (32.0-36.0) g/dL RDW Std Deviation (36.4-46.3) fL RDW Coeff of Guillermo (11.5-14.5) % Plt Count (130-400) K/uL MPV (9.4-12.3) fL Sodium 130 L (136-145) mmol/L Potassium 3.6 (3.5-5.1) mmol/L Chloride 95 L (98-107) mmol/L Carbon Dioxide 26 (21-32) mmol/L Anion Gap 9 (3-11) BUN 17 (6-23) mg/dl Creatinine 0.94 (0.6-1.2) mg/dl Est Cr Clr Drug Dosing 69.4 ml/min Est GFR ( Amer) 70.2 ml/min Est GFR (Non-Af Amer) 60.6 ml/min BUN/Creatinine Ratio 18.1 (10-20) Glucose 142 H (70-99(Fasting)) mg/dl POC Glucose (70-99) mg/dl Calcium 8.0 L (8.5-10.1) mg/dl Phosphorus (2.5-4.9) mg/dl Magnesium (1.7-2.4) mg/dl Ammonia (18-72) umol/L Medications Administered Current Inpatient Medications Acetaminophen (Acetaminophen 325 Mg Tab) 325 mg PO Q6H PRN PRN Reason: Mild Pain Stop: 03/07/22 06:14 Last Admin: 02/09/22 06:12 Dose: 325 mg Aripiprazole (Aripiprazole 1 Mg/Ml Oral Soln 150 Ml Btl) 2 mg PO HS [facility] Stop: 03/07/22 20:59 Last Admin: 02/09/22 21:13 Dose: 2 mg Aspirin (Aspirin 81 Mg Ectab) [facility] [place] Stop: 03/07/22 11:29 Last Admin: 02/09/22 11:09 Dose: 81 mg Atorvastatin Calcium (Atorvastatin 40 Mg Tab) 40 mg PO [facility] Stop: 03/07/22 11:14 Last Admin: 02/09/22 11:10 Dose: 40 mg Bisacodyl (Bisacodyl 10 Mg Supp) 10 mg UT DAILY PRN PRN Reason: Constipation Stop: 03/07/22 10:49 Dextrose (Dextrose 50% 50 Ml Syringe) 25 - 50 ml IV UD PRN; Protocol PRN Reason: Hypoglycemia Protocol Stop: 03/07/22 10:49 Enoxaparin Sodium (Enoxaparin Inj 30 Mg/0.3 Ml Syr) 30 mg SQ Q12H [facility] Stop: 03/08/22 07:59 Last Admin: 02/09/22 21:12 Dose: 30 mg Glucagon (Glucagon For Inj 1 Mg Vial) 1 mg SQ UD PRN; Protocol PRN Reason: Hypoglycemia Protocol Stop: 03/07/22 10:49 Glucose (Glucose 40% Gel 15 Gm Tube) 15 - 30 gm PO UD PRN; Protocol PRN Reason: Hypoglycemia Protocol Stop: 03/07/22 10:49 Glucose (Glucose 10 Tab/Tube) 4 - 8 tab PO UD PRN; Protocol PRN Reason: Hypoglycemia Treatment Stop: 03/07/22 10:49 Guaifenesin (Guaifenesin 600 Mg Tabcr) 600 mg PO Q12 [facility] Stop: 03/09/22 09:29 Last Admin: 02/09/22 21:11 Dose: 600 mg Promethazine HCl 12.5 mg/ (Sodium Chloride) 50.5 mls @ 202 mls/hr IV Q6H PRN PRN Reason: Nausea And Vomiting Stop: 03/07/22 06:14 Last Infusion: 02/07/22 19:38 Dose: Infused Meropenem 500 mg/ Syringe 10 mls @ 2 mls/min IV Q6H [facility]; Protocol Stop: 02/15/22 13:59 Last Admin: 02/10/22 01:59 Dose: 2 mls/min Vancomycin HCl 1,000 mg/ (Sodium Chloride) 270 mls @ 200 mls/hr IV Q12H [facility] Stop: 02/16/22 02:59 Last Infusion: 02/10/22 04:34 Dose: Infused Insulin Aspart (Insulin Aspart Per Unit) 0 units SC ACHS [facility] Stop: 03/07/22 11:29 Last Admin: 02/09/22 21:10 Dose: 3 units Insulin Glargine (Lantus Per Unit Charge) 10 units SQ BID [facility] Stop: 03/07/22 11:14 Last Admin: 02/09/22 21:11 Dose: 10 units Lactulose (Lactulose Syrup 30 Gm/45 Ml Udp) 30 gm PO BID [facility] Stop: 03/07/22 11:29 Last Admin: 02/09/22 21:11 Dose: 30 gm Lamotrigine (Lamotrigine 25 Mg Tab) 75 mg PO QAM [facility] Stop: 03/07/22 11:14 Last Admin: 02/07/22 08:05 Dose: 75 mg Lamotrigine (Lamotrigine 100 Mg Tab) 100 mg PO QAM [facility] Stop: 03/07/22 11:14 Last Admin: 02/09/22 11:08 Dose: 100 mg Lamotrigine (Lamotrigine 100 Mg Tab) 150 mg PO HS [facility] Stop: 03/11/22 18:44 Last Admin: 02/09/22 20:26 Dose: 150 mg Levothyroxine Sodium (Levothyroxine Sodium 88 Mcg Tablet) 88 mcg PO DAILYBB [facility] Stop: 03/07/22 11:14 Last Admin: 02/10/22 04:47 Dose: 88 mcg Lorazepam (Lorazepam 0.5 Mg Tab) 0.25 mg PO TID PRN PRN Reason: Anxiety Stop: 03/07/22 06:17 Last Admin: 02/09/22 11:39 Dose: 0.25 mg Magnesium Oxide (Magnesium Oxide 400 Mg Tab) [facility] [place] Stop: 03/11/22 08:59 Last Admin: 02/09/22 11:18 Dose: 400 mg Metoprolol Succinate (Metoprolol Succ 50mg Ext Rel Tab) 50 mg PO [facility] Stop: 03/07/22 11:14 Last Admin: 02/09/22 11:07 Dose: Not Given Miscellaneous (Carbohydrates For Hypoglycemia ) 15 - 30 gm PO UD PRN PRN Reason: Hypoglycemia Protocol Stop: 03/07/22 10:49 Miscellaneous Information (Vancomycin Consult Active) 1 each N/A UD PRN PRN Reason: Consult Stop: 03/10/22 14:10 Montelukast Sodium (Montelukast Sodium 10 Mg Tablet) 10 mg PO DAILY@1600 [facility] Stop: 03/07/22 15:59 Last Admin: 02/09/22 18:15 Dose: Not Given Morphine Sulfate (Morphine Sulfate Cr 15 Mg Tabcr) 15 mg PO BID [facility] Stop: 02/19/22 11:14 Last Admin: 02/09/22 21:10 Dose: 15 mg Morphine Sulfate (Morphine Sulfate 4 Mg/Ml 1 Ml Carp\Vial) 2 mg IV Q4H PRN PRN Reason: Pain Stop: 02/19/22 06:14 Naloxone HCl (Naloxone Hcl 0.4 Mg/1 Ml Vial/Carp) 0.1 mg IV UD PRN PRN Reason: Opiate Overdose Stop: 03/07/22 10:49 Oxybutynin Chloride (Oxybutynin Chloride Xl 5 Mg Tabcr) 10 [facility] [place] Stop: 03/07/22 11:14 Last Admin: 02/09/22 11:08 Dose: 10 mg Oxycodone HCl (Oxycodone Hcl Ir 5 Mg Tab (Immediate Release)) 5 mg PO Q4H PRN PRN Reason: Pain Stop: 02/19/22 06:14 Last Admin: 02/09/22 13:02 Dose: 5 mg Pantoprazole Sodium (Pantoprazole 40 Mg Tab) 40 mg PO DAILYBB [facility] Stop: 03/07/22 11:14 Last Admin: 02/10/22 04:47 Dose: 40 mg Potassium Chloride (Potassium Chloride Crtab 20 Meq Tabcr) 40 meq PO QAM [facility] Stop: 03/11/22 10:14 Last Admin: 02/09/22 11:17 Dose: 40 meq Rifaximin (Rifaximin 550 Mg Tablet) 550 mg PO BID [facility] Stop: 03/07/22 11:14 Last Admin: 02/09/22 21:12 Dose: 550 mg Spironolactone (Spironolactone 25 Mg Tab) 50 mg PO QAM [facility] Stop: 03/10/22 08:59 Last Admin: 02/09/22 11:09 Dose: 50 mg Tamsulosin HCl (Tamsulosin Hcl 0.4 Mg Cap) 0.4 mg PO QAM [facility] Stop: 03/07/22 11:14 Last Admin: 02/09/22 11:09 Dose: 0.4 mg Torsemide (Torsemide 20 Mg Tab) 20 mg PO QAM [facility] Stop: 03/10/22 08:59 Last Admin: 02/09/22 11:09 Dose: 20 mg Venlafaxine HCl (Venlafaxine Hcl Xr 150 Mg Capxr) 150 mg PO QAM [facility] Stop: 03/07/22 11:14 Last Admin: 02/07/22 08:06 Dose: 150 mg Venlafaxine HCl (Venlafaxine Hcl Xr 75 Mg Capxr) 75 [facility] [place] Stop: 03/07/22 11:14 Last Admin: 02/09/22 11:09 Dose: 75 mg
[2022-02-10] MEDS ORDERED: MAGNESIUM SULFATE / D5W 1 GM/100 ML BAG IV ONE (07:51)
[2022-02-10] MEDS: LORazepam 0.5 MG TAB PO PRN (08:10)
[2022-02-10] MEDS: lamoTRIgine 100 MG TAB PO SCH ×2 (08:11→20:42)
[2022-02-10] MEDS: LANTUS PER UNIT CHARGE SQ SCH ×2 (08:11→20:41)
[2022-02-10] MEDS: MAGNESIUM OXIDE 400 MG TAB PO SCH (08:11)
[2022-02-10] MEDS: INSULIN ASPART PER UNIT SC SCH ×4 (08:11→20:41)
[2022-02-10] MEDS: POTASSIUM CHLORIDE CRTAB 20 MEQ TABCR PO SCH ×2 (08:12→20:45)
[2022-02-10] MEDS: TORSEMIDE 20 MG TAB PO SCH (08:12)
[2022-02-10] MEDS: SPIRONOLACTONE 25 MG TAB PO SCH (08:12)
[2022-02-10] MEDS: TAMSULOSIN HCL 0.4 MG CAP PO SCH (08:12)
[2022-02-10] MEDS: VENLAFAXINE HCL XR 150 MG CAPXR PO SCH (08:12)
[2022-02-10] MEDS: OXYBUTYNIN CHLORIDE XL 5 MG TABCR PO SCH (08:12)
[2022-02-10] MEDS: ATORVASTATIN 40 MG TAB PO SCH (08:12)
[2022-02-10] MEDS: lamoTRIgine 25 MG TAB PO SCH (08:12)
[2022-02-10] MEDS: VENLAFAXINE HCL XR 75 MG CAPXR PO SCH (08:13)
[2022-02-10] MEDS: ENOXAPARIN INJ 30 MG/0.3 ML SYR SQ SCH ×2 (08:13→20:42)
[2022-02-10] MEDS: METOPROLOL SUCC 50MG EXT REL TAB PO SCH (08:15)
[2022-02-10] MEDS: LACTULOSE SYRUP 30 GM/45 ML UDP PO SCH ×3 (08:15→21:10)
[2022-02-10] MEDS: MoRPHine SULFATE CR 15 MG TABCR PO SCH ×2 (10:03→20:44)
--- NOTE | 2022-02-10 10:07 | Nephrology Progress Note ---
Date of Service February 10, 2022 Assessment & Plan (1) Hyponatremia: Plan: Patient with hypervolemic hyponatremia. Sodium is up trending at 130 today. We will continue current diuretics. Will increase potassium chloride to 40 mEq twice daily. Continue to monitor sodium daily. Patient should be on a fluid restriction of 1.2 L daily. (2) Acute on chronic diastolic heart failure with preserved ejection fraction: Plan: She will continue torsemide and Aldactone at current doses. No changes. Mon itor daily weight if able Admission and Anticipated Discharge Date Admission Date: February 05, 2022 Subjective Seen for hyponatremia. Sodium is stable around 130. No shortness of breath Review of Systems Review of Systems: All other systems were reviewed and negative except as note d in HPI Physical Exam Physical Exam: General exam: Appears comfortable, no acute distress HEENT: Pupils are equal and reactive to light Neck: No JVD, neck is supple trachea is midline Respiratory system: Clear breath sounds bilaterally. Gastrointestinal: Abdomen is soft, non distended, non tender, bowel sounds are present CVS: Regular rate and rhythm. No murmurs, rubs or gallops Musculoskeletal: No joint or muscle tenderness Extremities: Non tender, no edema, peripheral pulses are present Neuro: Oriented, no tremors, no focal neurological deficits Skin: No rashes Results & Data ([facility]) Vital Signs (Past 12 Hours) Vital Signs Temp Pulse Pulse Pulse Resp BP BP 02/10/22 07:00 101 H 02/10/22 07:27 37.6 C H 105 H 20 119/47 L 02/10/22 03:33 37.3 C 113 H 20 149/65 H 02/10/22 00:46 107 H 02/09/22 23:20 37.4 C 105 H 20 142/70 H Pulse Ox O2 Del Method 02/10/22 07:00 02/10/22 07:27 94 Room Air 02/10/22 03:33 91 Room Air 02/10/22 00:46 02/09/22 23:20 100 Room Air Laboratory Results 02/10/22 06:32 02/10/22 02/10/22 06:32 06:32 WBC 8.60 RBC 3.13 L MCV 77.6 L MCH 25.2 MCHC 32.5 RDW Std Deviation 53.1 H RDW Coeff of Guillermo 19.2 H Plt Count 116 L MPV 10.1 Phosphorus 2.6
[2022-02-10] MEDS: oxyCODONE HCL IR 5 MG TAB (IMMEDIATE RELEASE) PO PRN (12:06)
[2022-02-10] MEDS: guaiFENesin 600 MG TABCR PO SCH ×2 (13:04→20:46)
[2022-02-10] MEDS: ASPIRIN 81 MG ECTAB PO SCH (13:04)
[2022-02-10] MEDS: rifAXIMin 550 MG TABLET PO SCH ×2 (13:04→20:45)
--- NOTE | 2022-02-10 14:52 | Pharmacy Report ---
Pharmacy PK ABX Note - Date of Service February 10, 2022 - Assessment and Plan Assessment 71 year old F previously receiving ertapenem/doxycycline transitioning to vancomycin/meropenem for acute worsening. Pertinent microbiologic data includes: ESBL E coli growing in outpatient urine culture, possible surgical site infection. 02/10: Leukocytosis has improved, patient improving with change in antibiotic regimen Plan 02/10 Random level obtain predicts current regimen slightly subtherapeutic, will increase dose to 1250 mg q12H which is predicted to achieve target AUC/GALINDO of 400-600 mg/L.hr Vancomycin * Loading dose: 2000 mg IV x 1 * Maintenance dose: 1000 mg IV every 12 hours * Regimen is predicted to achieve target AUC/GALINDO of 400-600 mg/L.hr * Random level to be ordered if vancomycin continued >48 hours Pharmacy will continue to follow and will adjust dose/frequency as necessary. Thank you. Pharmacy has transitioned to AUC monitoring for vancomycin. AUC/GALINDO is the preferred PK/PD target and is associated with decreased risk of nephrotoxicity compared to traditional trough targets.
[2022-02-10] MEDS: VANCOMYCIN HCL 1,250 MG in SODIUM CHLORIDE 0.9% 250 ML IV SCH (16:50)
[2022-02-10] MEDS: MONTELUKAST SODIUM 10 MG TABLET PO SCH (18:11)
[2022-02-10] MEDS: ACETAMINOPHEN 325 MG TAB PO PRN (18:19)
[2022-02-10] MEDS: ARIPIprazole 1 MG/ML ORAL SOLN 150 ML BTL PO SCH (20:44)
[2022-02-11] MEDS: VANCOMYCIN HCL 1,250 MG in SODIUM CHLORIDE 0.9% 250 ML IV SCH ×2 (03:15→16:23)
[2022-02-11] MEDS: MEROPENEM 500 MG in SYRINGE 0 ML IV SCH ×4 (04:15→19:56)
[2022-02-11] MEDS: LEVOTHYROXINE SODIUM 88 MCG TABLET PO SCH (05:55)
[2022-02-11] MEDS: PANTOprazole 40 MG TAB PO SCH (05:55)
--- NOTE | 2022-02-11 07:34 | Hospitalist Progress Note ---
Date of Service February 11, 2022 Assessment & Plan (1) Hip fracture, left: Plan: Secondary to fall History ambulatory dysfunction/Bfttult-Rzoql-Ibkwj disease Patient predisposed by lethargy secondary to multiple neuropsychotropic and narcotic medications Rule out hepatic encephalopathy as contributory factor to lethargy history NAFLD cirrhosis Medical telemetry given episodic lethargy and cardiac history Check ammonia level, facilitate lactulose and rifaximin Ammonia level wnl, cont. to monitor Appropriate to hold narcotics/neuropsychotropic meds for sedation confusion History ESBL E. coli UTI ongoing Ertapenem Rx Ucultx (01/16) positive for ESBL E. coli, and outpatient record Per family, started on ertapenem on Friday (1 week ago) Repeat UA negative Pt cont. to have intermittent fevers Continued ertapenem, added doxy for now blood cultures (01/31) - negative (02/06)- NEGATIVE 02/08 - WBC elevated at 16,000, switched ertapenem and Doxy to meropenem plus vancomycin 02/09 WBC down to 12,000 02/10 WBC normalized - 8,600 ID consult - pending Orthopedics consult Re: Left hip fracture ([facility] as per family's request.) p Left Hip Hemiarthroplasty(Left) - Ivan Cha MD on 02/05/[address] hip obtained given anemia, and persistent fevers IMPRESSION: 1. Satisfactory alignment of the left hip total joint arthroplasty. No acute fracture identified. 2. Expected postoperative changes with a small postoperative collection interposed between the gluteus medius and minimus musculature measuring up to 5.7 cm. 3. No large postoperative hematoma. Cardiology preop eval requested given RCRI of at least 3 points (Class IV risk) if surgery recommended and patient/family agreeable to procedural risks. Pt high risk for procedure not only d/t cardiac dz but her other med. conditions. Chronic diastolic heart failure (EF 55 to 59%, TTE 09/2021) hx CAD status post CABG/stent Moderate Hypertension, stable Hyperlipidemia, on statin Rx Torsemide and spironolactone resumed Acute blood loss anemia post-op vs. dilutional pre-op Hgb ~12, post-op ~8 cont. to monitor H&H, transfuse if Hgb <7.5 s/p 1 unit of pRBC ->Hgb 8.3 Current Hgb 7.8 Bipolar disorder/OCD - cont. home medications -Patient becomes suspicious and paranoid on and off while in the hospital -Daughter Carolyn often present at bedside, to help with care DM2 insulin requiring, well-controlled as of recent hemoglobin A1c of 11 December 2021 Basal insulin adjusted for n.p.o. status, ISS BG goal 110-140 Chronic hyponatremia cont. to monitor Hypervolemic hyponatremia, sodium improved after Lasix Resumed torsemide and spironolactone FR 1.2L Past history DVT as per records DVT prophylaxis. lovenox (per ortho) Full code Patient's daughters: Ms. Carolyn Burciaga, contact #[phone] Ms. Yarelis Burciaga, contact #[phone]. Admission and Anticipated Discharge Date Admission Date: February 05, 2022 Subjective Patient seen in follow-up for hip fracture, status postsurgical repair p Left Hip Hemiarthroplasty(Left) - Ivan Cha MD on 02/05/22 Currently lying in bed, in no acute distress She is alert and oriented and answering questions appropriately (unlike first days when I saw her). Currently breathing comfortably on room air Afebrile WBC normalized Update: Later in the day patient was seen by orthopedics, and was quite confused. Would not want to cooperate with orthopedics or nursing staff. Daughter was at the bedside to help. Review of Systems Review of Systems: All systems reviewed & are unremarkable except as noted in Subjective Physical Exam Physical Exam: GENERAL: morbidly obese F, in NAD, on RA HEENT: NC/AT, Iago palpebral conjunctivae NECK : Supple CHEST : CTAB, no wheezing HEART : RRR, systolic murmur ABDOMEN: +bowel sounds, nontender, obese, soft : mejia catheter placed SKIN: Normal color, warm EXTREMITIES : Minimal LE swelling, left hip tenderness (s/p surgery), does not move LLE (hx of CMT - baseline per ortho), moves RLE NEUROLOGIC : Awake, able to answer simple questions appropriately, much more alert today, no facial asymmetry Results & Data Results & Data ([facility]) Vital Signs (Past 12 Hours) Vital Signs Temp Pulse Resp BP BP Pulse Ox O2 Del Method 02/11/22 03:15 37.5 C 97 H 20 117/59 L 94 Room Air 02/10/22 23:02 37.4 C 88 16 117/64 92 Nasal Cannula O2 Flow Rate 02/11/22 03:15 02/10/22 23:02 2 Medications Administered Current Inpatient Medications Acetaminophen (Acetaminophen 325 Mg Tab) 325 mg PO Q6H PRN PRN Reason: Mild Pain Stop: 03/07/22 06:14 Last Admin: 02/10/22 18:19 Dose: 325 mg Aripiprazole (Aripiprazole 1 Mg/Ml Oral Soln 150 Ml Btl) 2 mg PO HS [facility] Stop: 03/07/22 20:59 Last Admin: 02/10/22 20:44 Dose: 2 mg Aspirin (Aspirin 81 Mg Ectab) 81 mg PO QAM [facility] Stop: 03/07/22 11:29 Last Admin: 02/10/22 13:04 Dose: 81 mg Atorvastatin Calcium (Atorvastatin 40 Mg Tab) 40 mg PO QAM [facility] Stop: 03/07/22 11:14 Last Admin: 02/10/22 08:12 Dose: 40 mg Bisacodyl (Bisacodyl 10 Mg Supp) 10 mg OK DAILY PRN PRN Reason: Constipation Stop: 03/07/22 10:49 Dextrose (Dextrose 50% 50 Ml Syringe) 25 - 50 ml IV UD PRN; Protocol PRN Reason: Hypoglycemia Protocol Stop: 03/07/22 10:49 Enoxaparin Sodium (Enoxaparin Inj 30 Mg/0.3 Ml Syr) 30 mg SQ Q12H [facility] Stop: 03/08/22 07:59 Last Admin: 02/10/22 20:42 Dose: 30 mg Glucagon (Glucagon For Inj 1 Mg Vial) 1 mg SQ UD PRN; Protocol PRN Reason: Hypoglycemia Protocol Stop: 03/07/22 10:49 Glucose (Glucose 40% Gel 15 Gm Tube) 15 - 30 gm PO UD PRN; Protocol PRN Reason: Hypoglycemia Protocol Stop: 03/07/22 10:49 Glucose (Glucose 10 Tab/Tube) 4 - 8 tab PO UD PRN; Protocol PRN Reason: Hypoglycemia Treatment Stop: 03/07/22 10:49 Guaifenesin (Guaifenesin 600 Mg Tabcr) 600 mg PO Q12 [facility] Stop: 03/09/22 09:29 Last Admin: 02/10/22 20:46 Dose: 600 mg Promethazine HCl 12.5 mg/ (Sodium Chloride) 50.5 mls @ 202 mls/hr IV Q6H PRN PRN Reason: Nausea And Vomiting Stop: 03/07/22 06:14 Last Infusion: 02/07/22 19:38 Dose: Infused Meropenem 500 mg/ Syringe 10 mls @ 2 mls/min IV Q6H [facility]; Protocol Stop: 02/15/22 13:59 Last Admin: 02/11/22 04:15 Dose: 2 mls/min Vancomycin HCl 1,250 mg/ (Sodium Chloride) 275 mls @ 200 mls/hr IV Q12H [facility] Stop: 02/16/22 02:59 Last Infusion: 02/11/22 04:39 Dose: Infused Insulin Aspart (Insulin Aspart Per Unit) 0 units SC ACHS [facility] Stop: 03/07/22 11:29 Last Admin: 02/10/22 20:41 Dose: 1 units Insulin Glargine (Lantus Per Unit Charge) 10 units SQ BID [facility] Stop: 03/07/22 11:14 Last Admin: 02/10/22 20:41 Dose: 10 units Lactulose (Lactulose Syrup 30 Gm/45 Ml Udp) 30 gm PO BID [facility] Stop: 03/07/22 11:29 Last Admin: 02/10/22 21:10 Dose: Not Given Lamotrigine (Lamotrigine 25 Mg Tab) 75 mg PO QAM [facility] Stop: 03/07/22 11:14 Last Admin: 02/10/22 08:12 Dose: 75 mg Lamotrigine (Lamotrigine 100 Mg Tab) 100 mg PO QAM [facility] Stop: 03/07/22 11:14 Last Admin: 02/10/22 08:11 Dose: 100 mg Lamotrigine (Lamotrigine 100 Mg Tab) 150 mg PO HS [facility] Stop: 03/11/22 18:44 Last Admin: 02/10/22 20:42 Dose: 150 mg Levothyroxine Sodium (Levothyroxine Sodium 88 Mcg Tablet) 88 mcg PO DAILYBB [facility] Stop: 03/07/22 11:14 Last Admin: 02/11/22 05:55 Dose: 88 mcg Lorazepam (Lorazepam 0.5 Mg Tab) 0.25 mg PO TID PRN PRN Reason: Anxiety Stop: 03/07/22 06:17 Last Admin: 02/10/22 08:10 Dose: 0.25 mg Magnesium Oxide (Magnesium Oxide 400 Mg Tab) 400 mg PO QAM [facility] Stop: 03/11/22 08:59 Last Admin: 02/10/22 08:11 Dose: 400 mg Metoprolol Succinate (Metoprolol Succ 50mg Ext Rel Tab) 50 mg PO QAM [facility] Stop: 03/07/22 11:14 Last Admin: 02/10/22 08:15 Dose: 50 mg Miscellaneous (Carbohydrates For Hypoglycemia ) 15 - 30 gm PO UD PRN PRN Reason: Hypoglycemia Protocol Stop: 03/07/22 10:49 Miscellaneous Information (Vancomycin Consult Active) 1 each N/A UD PRN PRN Reason: Consult Stop: 03/10/22 14:10 Montelukast Sodium (Montelukast Sodium 10 Mg Tablet) 10 mg PO DAILY@1600 [facility] Stop: 03/07/22 15:59 Last Admin: 02/10/22 18:11 Dose: 10 mg Morphine Sulfate (Morphine Sulfate Cr 15 Mg Tabcr) 15 mg PO BID [facility] Stop: 02/19/22 11:14 Last Admin: 02/10/22 20:44 Dose: 15 mg Morphine Sulfate (Morphine Sulfate 4 Mg/Ml 1 Ml Carp\Vial) 2 mg IV Q4H PRN PRN Reason: Pain Stop: 02/19/22 06:14 Naloxone HCl (Naloxone Hcl 0.4 Mg/1 Ml Vial/Carp) 0.1 mg IV UD PRN PRN Reason: Opiate Overdose Stop: 03/07/22 10:49 Oxybutynin Chloride (Oxybutynin Chloride Xl 5 Mg Tabcr) [facility] [place]: 03/07/22 11:14 Last Admin: 02/10/22 08:12 Dose: 10 mg Oxycodone HCl (Oxycodone Hcl Ir 5 Mg Tab (Immediate Release)) 5 mg PO Q4H PRN PRN Reason: Pain Stop: 02/19/22 06:14 Last Admin: 02/10/22 12:06 Dose: 5 mg Pantoprazole Sodium (Pantoprazole 40 Mg Tab) 40 mg PO DAILYBB [facility] Stop: 03/07/22 11:14 Last Admin: 02/11/22 05:55 Dose: 40 mg Potassium Chloride (Potassium Chloride Crtab 20 Meq Tabcr) 40 meq PO BID [facility] Stop: 03/12/22 20:59 Last Admin: 02/10/22 20:45 Dose: 40 meq Rifaximin (Rifaximin 550 Mg Tablet) 550 mg PO BID [facility] Stop: 03/07/22 11:14 Last Admin: 02/10/22 20:45 Dose: 550 mg Spironolactone (Spironolactone 25 Mg Tab) 50 mg PO QAM [facility] Stop: 03/10/22 08:59 Last Admin: 02/10/22 08:12 Dose: 50 mg Tamsulosin HCl (Tamsulosin Hcl 0.4 Mg Cap) 0.[facility] [place] Stop: 03/07/22 11:14 Last Admin: 02/10/22 08:12 Dose: 0.4 mg Torsemide (Torsemide 20 Mg Tab) [facility] [place] Stop: 03/10/22 08:59 Last Admin: 02/10/22 08:12 Dose: 20 mg Venlafaxine HCl (Venlafaxine Hcl Xr 150 Mg Capxr) [facility] [place]: 03/07/22 11:14 Last Admin: 02/10/22 08:12 Dose: 150 mg Venlafaxine HCl (Venlafaxine Hcl Xr 75 Mg Capxr) [facility] [place]: 03/07/22 11:14 Last Admin: 02/10/22 08:13 Dose: 75 mg
[2022-02-11 08:15] LABS: BUN Creatinine Ratio 16.7 (10-20); Calcium 7.7 mg/dl (8.5-10.1); Creatinine Clr Calc Pharmacy 86.6 ml/min; Magnesium 1.8 mg/dl (1.7-2.4); Phosphorus 2.7 mg/dl (2.5-4.9); Potassium 3.6 mmol/L (3.5-5.1)
[2022-02-11 08:19] LABS: Hematocrit (blood only) 24.3 % (34.1-44.9); Hemoglobin 7.8 g/dl (12.0-16.0); Mean Corpuscular Hemoglobin 25.1 pg (25.0-34.0); Mean Corpuscular Hgb Conc 32.1 g/dL (32.0-36.0); Mean Corpuscular Volume 78.1 fL (80.0-100.0); Mean Platelet Volume 10.1 fL (9.4-12.3); Platelet Count 126 K/uL (130-400); RDW Coefficient of Variation 19.1 % (11.5-14.5); RDW Standard Deviation 53.8 fL (36.4-46.3); Red Blood Count 3.11 M/uL (3.93-5.22); White Blood Count 8.81 K/ul (4.8-10.8)
[2022-02-11] MEDS: INSULIN ASPART PER UNIT SC SCH ×4 (08:41→21:19)
[2022-02-11] MEDS: LANTUS PER UNIT CHARGE SQ SCH ×2 (08:41→21:19)
[2022-02-11] MEDS: POTASSIUM CHLORIDE CRTAB 20 MEQ TABCR PO SCH ×2 (08:42→19:47)
[2022-02-11] MEDS: METOPROLOL SUCC 50MG EXT REL TAB PO SCH (08:42)
[2022-02-11] MEDS: lamoTRIgine 100 MG TAB PO SCH ×2 (08:42→19:44)
[2022-02-11] MEDS: rifAXIMin 550 MG TABLET PO SCH ×2 (08:42→19:48)
[2022-02-11] MEDS: lamoTRIgine 25 MG TAB PO SCH (08:43)
[2022-02-11] MEDS: ENOXAPARIN INJ 30 MG/0.3 ML SYR SQ SCH ×2 (08:43→21:18)
[2022-02-11] MEDS: OXYBUTYNIN CHLORIDE XL 5 MG TABCR PO SCH (08:43)
[2022-02-11] MEDS: guaiFENesin 600 MG TABCR PO SCH ×2 (08:43→19:43)
[2022-02-11] MEDS: MoRPHine SULFATE CR 15 MG TABCR PO SCH ×2 (08:43→21:20)
[2022-02-11] MEDS: ASPIRIN 81 MG ECTAB PO SCH (08:43)
[2022-02-11] MEDS: SPIRONOLACTONE 25 MG TAB PO SCH (08:45)
[2022-02-11] MEDS: ATORVASTATIN 40 MG TAB PO SCH (08:45)
[2022-02-11] MEDS: TORSEMIDE 20 MG TAB PO SCH (08:45)
[2022-02-11] MEDS: VENLAFAXINE HCL XR 75 MG CAPXR PO SCH (08:45)
[2022-02-11] MEDS: VENLAFAXINE HCL XR 150 MG CAPXR PO SCH (08:45)
[2022-02-11] MEDS: TAMSULOSIN HCL 0.4 MG CAP PO SCH (08:45)
[2022-02-11] MEDS: MAGNESIUM OXIDE 400 MG TAB PO SCH (08:46)
[2022-02-11] MEDS: LACTULOSE SYRUP 30 GM/45 ML UDP PO SCH ×2 (08:47→19:44)
[2022-02-11] MEDS ORDERED: SPIRONOLACTONE 25 MG TAB PO SCH (10:00)
[2022-02-11] MEDS ORDERED: FUROSEMIDE INJ 20 MG/2 ML VIAL IV ONE (10:53)
--- NOTE | 2022-02-11 10:55 | Nephrology Progress Note ---
Date of Service February 11, 2022 Assessment & Plan Admission and Anticipated Discharge Date Admission Date: February 05, 2022 Subjective Assessment & Plan (1) Hyponatremia: Plan: Patient with hypervolemic hyponatremia. Conitnue potassium chloride to 40 mEq twice daily. Continue to monitor sodium daily. Patient should be on a fluid restriction of 1.2 L daily. Na went down again to 128. Lower Aldactone to 50 daily. Lasix 20 mg iv x 1 now. Subjective Seen for hyponatremia. Sodium is down a bit. Edema +. No shortness of breath Review of Systems Review of Systems: All other systems were reviewed and negative except as noted in HPI Physical Exam Physical Exam: General exam: Appears comfortable, no acute distress HEENT: Pupils are equal and reactive to light Neck: No JVD, neck is supple trachea is midline Respiratory system: Clear breath sounds bilaterally. Gastrointestinal: Abdomen is soft, non distended, non tender, bowel sounds are present CVS: Regular rate and rhythm. No murmurs, rubs or gallops Musculoskeletal: No joint or muscle tenderness Extremities: Non tender, no edema, peripheral pulses are present Neuro: Oriented, no tremors, no focal neurological deficits Skin: No rashes Results & Data ([facility]) Vital Signs (Past 12 Hours) Vital Signs Temp Pulse Resp BP BP Pulse Ox O2 Del Method 02/11/22 08:00 37.0 C 88 16 141/68 H 93 Room Air 02/11/22 03:15 37.5 C 97 H 20 117/59 L 94 Room Air 02/10/22 23:02 37.4 C 88 16 117/64 92 Nasal Cannula O2 Flow Rate 02/11/22 08:00 02/11/22 03:15 02/10/22 23:02 2
[2022-02-11] MEDS: MONTELUKAST SODIUM 10 MG TABLET PO SCH ×2 (16:26→16:27)
--- NOTE | 2022-02-11 16:52 | Orthopedic Progress Note ---
Date of Service February 11, 2022 Assessment & Plan (1) S/P hip hemiarthroplasty: Plan: Patient's daughter was educated regarding today's findings. She states that the patient is not normally confused like this at baseline. All of this seems to have transpired while she was in the hospital. Possibility of different surroundings, medication changes, narcotics, hyponatremia, and anemia are seen as potential sources for her confusion. She is definitely more paranoid today than when I have seen her in the past. She remains obstinate and refuses care at multiple steps. She states she will not eat dinner tonight because she does not want to. She was encouraged to have a little bit of food. She repetitively calls out for her daughter Melinda and insists that she needs to be careful about what she says and did not divulge too much information. Patient did participate in PT yesterday and did well with a two-person assist. She was able to stand as well as sit on the edge of the bed. Patient will likely require senior living facility for extended care until she is strong enough to return home. Her daughter is aware. Patient was encouraged to participate in PT. She does seem to do better when her daughter is present to encourage her as well. PT sessions may have to be timed so that her daughter is present and can provide additional encouragement. Prevena wound VAC may be changed on Friday or . Continue total hip precautions and use of her wedge pillow. Admission and Anticipated Discharge Date Admission Date: February 05, 2022 Subjective Patient was evaluated in room 207 today. She remains confused and is more paranoid today. Her daughter is present for today's visit. Patient denies any current pain. She states she did not participate in PT today because she did not want to. She is currently very suspicious of why I am in the room. She states she did not eat lunch today because she did not want to. No additional complaints. Physical Exam Physical Exam: General: Well-developed, well-nourished, obese elderly white female, in no acute distress. Sitting in bed. Alert. She is not oriented to place or time. She believes she is in a snf. She states she would like to go home. She believes that I am carrying poison and would like to poison her. Skin: Warm and dry with fair turgor. No rashes. She does have ecchymosis present on her left abdomen, left flank, and around her left hip incision. Prevena wound VAC is in place and is functioning. There is scant drainage in the tubing. Musculoskeletal: Patient refuses to move her leg on her own. She fights me when I try to move it for her. When she is distracted, she has good internal and external rotation as well as hip flexion and exhibits no signs of discomfort. This is different than when she was seen on Friday. She continues to have flaccid ankles and feet. Neurologic: Gross sensation is intact across both lower extremities by soft touch. Results & Data ([facility]) Vital Signs (Past 12 Hours) Vital Signs Temp Pulse Pulse Resp BP Pulse Ox O2 Del Method 02/11/22 16:32 37.3 C 96 H 18 130/76 97 Room Air 02/11/22 16:00 88 02/11/22 11:48 37.3 C 89 18 136/74 91 Room Air 02/11/22 07:41 85 02/11/22 07:41 Room Air 02/11/22 08:00 37.0 C 88 16 141/68 H 93 Room Air Laboratory Results CBC obtained this morning shows a white count of 8.8. Hemoglobin 7.8 and hematocrit 24.3. Sodium 128, potassium 3.6, chloride 95, CO2 26. BUN 13 with creatinine normal at 0.78.
[2022-02-11] MEDS ORDERED: clonazePAM 0.5 MG TAB PO PRN (18:25)
[2022-02-11] MEDS ORDERED: LORazepam 0.5 MG TAB PO STA (19:37)
[2022-02-11] MEDS: ARIPIprazole 1 MG/ML ORAL SOLN 150 ML BTL PO SCH (19:42)
[2022-02-11] MEDS ORDERED: LORazepam 0.25 MG in SYRINGE 0.125 ML IV ONE (21:00)
[2022-02-11] MEDS: MoRPHine SULFATE 4 MG/ML 1 ML CARP\\VIAL IV PRN (21:20)
[2022-02-11] MEDS ORDERED: ACETAMINOPHEN 1000 MG/100 ML IV IV PRN (22:54)
[2022-02-11] MEDS ORDERED: LABETALOL HCL IV 5 MG/ML 20ML IV PRN (22:55)
[2022-02-12] MEDS ORDERED: ACETAMINOPHEN 1,000 MG/100 ML VIAL IV PRN (00:15)
[2022-02-12] MEDS: MEROPENEM 500 MG in SYRINGE 0 ML IV SCH ×4 (01:05→20:03)
[2022-02-12] MEDS: PROMETHAZINE HCL 12.5 MG in SODIUM CHLORIDE 0.9% 50 ML IV PRN (01:06)
[2022-02-12] MEDS: VANCOMYCIN HCL 1,250 MG in SODIUM CHLORIDE 0.9% 250 ML IV SCH (02:21)
[2022-02-12] MEDS: MoRPHine SULFATE 4 MG/ML 1 ML CARP\\VIAL IV PRN ×2 (04:23→16:23)
[2022-02-12] MEDS: PANTOprazole 40 MG TAB PO SCH (06:04)
[2022-02-12] MEDS: LEVOTHYROXINE SODIUM 88 MCG TABLET PO SCH (06:04)
[2022-02-12 07:19] LABS: Hematocrit (blood only) 25.4 % (34.1-44.9); Mean Corpuscular Hemoglobin 24.5 pg (25.0-34.0); Mean Corpuscular Hgb Conc 31.5 g/dL (32.0-36.0); Mean Corpuscular Volume 77.7 fL (80.0-100.0); Mean Platelet Volume 10.9 fL (9.4-12.3); Nucleated RBC # (auto) 0.02 K/uL (0-0); Nucleated RBC % (auto) 0.2 %; Platelet Count 149 K/uL (130-400); RDW Coefficient of Variation 19.1 % (11.5-14.5); Red Blood Count 3.27 M/uL (3.93-5.22); White Blood Count 9.91 K/ul (4.8-10.8)
[2022-02-12 07:41] LABS: Calcium 7.9 mg/dl (8.5-10.1); Creatinine Clr Calc Pharmacy 83.3 ml/min; Est GFR (African American) 85.4 ml/min; Est GFR (Non-African American) 73.7 ml/min; Magnesium 1.8 mg/dl (1.7-2.4); Phosphorus 2.9 mg/dl (2.5-4.9); Potassium 4.1 mmol/L (3.5-5.1)
[2022-02-12] MEDS: clonazePAM 0.5 MG TAB PO SCH ×3 (08:19→20:01)
[2022-02-12] MEDS: ASPIRIN 81 MG ECTAB PO SCH (08:27)
[2022-02-12] MEDS: lamoTRIgine 25 MG TAB PO SCH (08:28)
[2022-02-12] MEDS: lamoTRIgine 100 MG TAB PO SCH ×2 (08:28→19:36)
[2022-02-12] MEDS: VENLAFAXINE HCL XR 75 MG CAPXR PO SCH (08:30)
[2022-02-12] MEDS: TORSEMIDE 20 MG TAB PO SCH ×2 (08:30→16:19)
[2022-02-12] MEDS: VENLAFAXINE HCL XR 150 MG CAPXR PO SCH (08:30)
--- NOTE | 2022-02-12 10:02 | Hospitalist Progress Note ---
Date of Service February 12, 2022 Assessment & Plan (1) Hip fracture, left: Plan: Secondary to fall History ambulatory dysfunction/Iufuhvj-Mrsqy-Ibisx disease Patient predisposed by lethargy secondary to multiple neuropsychotropic and narcotic medications Rule out hepatic encephalopathy as contributory factor to lethargy history NAFLD cirrhosis Medical telemetry given episodic lethargy and cardiac history Check ammonia level, facilitate lactulose and rifaximin Ammonia level wnl, cont. to monitor Appropriate to hold narcotics/neuropsychotropic meds for sedation confusion History ESBL E. coli UTI ongoing Ertapenem Rx Ucultx (01/16) positive for ESBL E. coli, and outpatient record (Epic) Per family, started on ertapenem on Friday (1 week ago) Repeat UA negative Pt cont. to have intermittent fevers Continued ertapenem, added doxy for now blood cultures (01/31) - negative (02/06)- NEGATIVE 02/08 - WBC elevated at 16,000, switched ertapenem and Doxy to meropenem plus vancomycin 02/09 WBC down to 12,000 02/10 WBC normalized - 8,600 ID consult - pending Orthopedics consult Re: Left hip fracture ([facility] as per family's request.) p Left Hip Hemiarthroplasty(Left) - Ivan Cha MD on 02/05/[address] hip obtained given anemia, and persistent fevers IMPRESSION: 1. Satisfactory alignment of the left hip total joint arthroplasty. No acute fracture identified. 2. Expected postoperative changes with a small postoperative collection interposed between the gluteus medius and minimus musculature measuring up to 5.7 cm. 3. No large postoperative hematoma. Cardiology preop eval requested given RCRI of at least 3 points (Class IV risk) if surgery recommended and patient/family agreeable to procedural risks. Pt high risk for procedure not only d/t cardiac dz but her other med. conditions. Chronic diastolic heart failure (EF 55 to 59%, TTE 09/2021) hx CAD status post CABG/stent Moderate Hypertension, stable Hyperlipidemia, on statin Rx Mild acute on chronic HF /hypervolemia- post-op Torsemide and spironolactone resumed Acute blood loss anemia post-op vs. dilutional pre-op Hgb ~12, post-op ~8 cont. to monitor H&H, transfuse if Hgb <7.5 s/p 1 unit of pRBC ->Hgb 8.3 Current Hgb 8.0 Metabolic encephalopathy -Secondary to surgery, and her multiple medical conditions -Resolved Bipolar disorder/OCD - cont. home medications -Patient becomes suspicious and paranoid on and off while in the hospital -Daughter Carolyn often present at bedside, to help with care -We will try to arrange for Carolyn to be able to visit any time, and possibly having one-on-one sitter for the patient DM2 insulin requiring, well-controlled as of recent hemoglobin A1c of 11 December 2021 Basal insulin adjusted for n.p.o. status, ISS BG goal 110-140 Chronic hyponatremia cont. to monitor Hypervolemic hyponatremia, sodium improved after Lasix Resumed torsemide and spironolactone FR 1.2L Nephrology following Past history DVT as per records DVT prophylaxis. lovenox (per ortho) Full code Patient's daughters: Ms. Carolyn Burciaga, contact #[phone] Ms. Yarelis Burciaga, contact #[phone]. Admission and Anticipated Discharge Date Admission Date: February 05, 2022 Subjective Patient seen in follow-up for hip fracture, status postsurgical repair p Left Hip Hemiarthroplasty(Left) - Ivan Cha MD on 02/05/22 Currently lying in bed, in no acute distress She is alert and oriented and answering simple questions appropriately (unlike first days when I saw her). Currently breathing comfortably on room air Afebrile but had temp. 37.8C last night WBC normalized Last evening patient was seen by orthopedics, and was quite confused. Would not want to cooperate with orthopedics or nursing staff. Daughter was at the bedside to help. This morning patient is communicating with me without any difficulty, however she refused medications by nursing staff. Talked to the daughter over the phone, will try to have her visiting hours unrestricted so she could help with care. Daughter also feels that when patient has one-on-one sitter, she does better and does not get so confused and paranoid. Charge nurse aware. Daughter Carolyn also feels that when we hold clonazepam, she gets more agitated, will restart clonazepam, had a long conversation with the daughter about benzos and opiates combination. Daughter is well aware, also discussed with pharmacy and nursing staff. Of note patient did receive several small doses of Ativan during her hospitalization. Review of Systems Review of Systems: All systems reviewed & are unremarkable except as noted in Subjective Physical Exam Physical Exam: GENERAL: morbidly obese F, in NAD, on RA HEENT: NC/AT, [place] palpebral conjunctivae NECK : Supple CHEST : CTAB, no wheezing HEART : RRR, systolic murmur ABDOMEN: +bowel sounds, nontender, obese, soft : mejia catheter placed SKIN: Normal color, warm EXTREMITIES : Minimal LE swelling, left hip tenderness (s/p surgery), does not move LLE (hx of CMT - baseline per ortho), moves RLE NEUROLOGIC : Awake, able to answer simple questions appropriately, much more alert today, no facial asymmetry Results & Data Results & Data ([facility]) Vital Signs (Past 12 Hours) Vital Signs Temp Pulse Pulse Pulse Resp BP BP 02/12/22 07:29 37.1 C 96 H 20 112/67 02/12/22 07:08 86 02/12/22 03:20 37.4 C 91 H 16 127/60 02/11/22 23:00 88 02/12/22 00:41 37.3 C 02/11/22 23:23 115/89 02/11/22 22:46 37.8 C H 96 H 18 173/118 H Pulse Ox O2 Del Method 02/12/22 07:29 96 Room Air 02/12/22 07:08 02/12/22 03:20 98 Room Air 02/11/22 23:00 02/12/22 00:41 02/11/22 23:23 02/11/22 22:46 97 Room Air Laboratory Results 02/12/22 02/12/22 02/12/22 Range/Units 07:10 06:49 06:49 WBC 9.91 (4.8-10.8) K/ul RBC 3.27 L (3.93-5.22) M/uL Hgb 8.0 L (12.0-16.0) g/dl Hct 25.4 L (34.1-44.9) % MCV 77.7 L (80.0-100.0) fL MCH 24.5 L (25.0-34.0) pg MCHC 31.5 L (32.0-36.0) g/dL RDW Std Deviation 53.0 H (36.4-46.3) fL RDW Coeff of Guillermo 19.1 H (11.5-14.5) % Plt Count 149 (130-400) K/uL MPV 10.9 (9.4-12.3) fL Absolute Nucleated RBC 0.02 H (0-0) K/uL Nucleated RBC % (auto) 0.2 % Sodium 129 L (136-145) mmol/L Potassium 4.1 (3.5-5.1) mmol/L Chloride 94 L (98-107) mmol/L Carbon Dioxide 26 (21-32) mmol/L Anion Gap 9 (3-11) BUN 12 (6-23) mg/dl Creatinine 0.80 (0.6-1.2) mg/dl Est Cr Clr Drug Dosing 83.3 ml/min Est GFR ( Amer) 85.4 ml/min Est GFR (Non-Af Amer) 73.7 ml/min BUN/Creatinine Ratio 15.0 (10-20) Glucose 154 H (70-99(Fasting)) mg/dl POC Glucose 174 H (70-99) mg/dl Calcium 7.9 L (8.5-10.1) mg/dl Phosphorus 2.9 (2.5-4.9) mg/dl Magnesium 1.8 (1.7-2.4) mg/dl 02/11/22 02/11/22 02/11/22 Range/Units 20:12 16:25 11:19 WBC (4.8-10.8) K/ul RBC (3.93-5.22) M/uL Hgb (12.0-16.0) g/dl Hct (34.1-44.9) % MCV (80.0-100.0) fL MCH (25.0-34.0) pg MCHC (32.0-36.0) g/dL RDW Std Deviation (36.4-46.3) fL RDW Coeff of Guillermo (11.5-14.5) % Plt Count (130-400) K/uL MPV (9.4-12.3) fL Absolute Nucleated RBC (0-0) K/uL Nucleated RBC % (auto) % Sodium (136-145) mmol/L Potassium (3.5-5.1) mmol/L Chloride (98-107) mmol/L Carbon Dioxide (21-32) mmol/L Anion Gap (3-11) BUN (6-23) mg/dl Creatinine (0.6-1.2) mg/dl Est Cr Clr Drug Dosing ml/min Est GFR ( Amer) ml/min Est GFR (Non-Af Amer) ml/min BUN/Creatinine Ratio (10-20) Glucose (70-99(Fasting)) mg/dl POC Glucose 167 H 178 H 181 H (70-99) mg/dl Calcium (8.5-10.1) mg/dl Phosphorus (2.5-4.9) mg/dl Magnesium (1.7-2.4) mg/dl Medications Administered Current Inpatient Medications Acetaminophen (Acetaminophen 325 Mg Tab) 325 mg PO Q6H PRN PRN Reason: Mild Pain Stop: 03/07/22 06:14 Last Admin: 02/10/22 18:19 Dose: 325 mg Aripiprazole (Aripiprazole 1 Mg/Ml Oral Soln 150 Ml Btl) 2 mg PO HS [facility] Stop: 03/07/22 20:59 Last Admin: 02/11/22 19:42 Dose: 2 mg Aspirin (Aspirin 81 Mg Ectab) 81 mg PO QAM [facility] Stop: 03/07/22 11:29 Last Admin: 02/11/22 08:43 Dose: 81 mg Atorvastatin Calcium (Atorvastatin 40 Mg Tab) 40 mg PO QAM [facility] Stop: 03/07/22 11:14 Last Admin: 02/11/22 08:45 Dose: 40 mg Bisacodyl (Bisacodyl 10 Mg Supp) 10 mg OH DAILY PRN PRN Reason: Constipation Stop: 03/07/22 10:49 Clonazepam (Clonazepam 0.5 Mg Tab) 0.5 mg PO TID [facility] Stop: 03/14/22 07:44 Last Admin: 02/12/22 08:19 Dose: 0.5 mg Dextrose (Dextrose 50% 50 Ml Syringe) 25 - 50 ml IV UD PRN; Protocol PRN Reason: Hypoglycemia Protocol Stop: 03/07/22 10:49 Enoxaparin Sodium (Enoxaparin Inj 30 Mg/0.3 Ml Syr) 30 mg SQ Q12H [facility] Stop: 03/08/22 07:59 Last Admin: 02/11/22 21:18 Dose: Not Given Glucagon (Glucagon For Inj 1 Mg Vial) 1 mg SQ UD PRN; Protocol PRN Reason: Hypoglycemia Protocol Stop: 03/07/22 10:49 Glucose (Glucose 40% Gel 15 Gm Tube) 15 - 30 gm PO UD PRN; Protocol PRN Reason: Hypoglycemia Protocol Stop: 03/07/22 10:49 Glucose (Glucose 10 Tab/Tube) 4 - 8 tab PO UD PRN; Protocol PRN Reason: Hypoglycemia Treatment Stop: 03/07/22 10:49 Guaifenesin (Guaifenesin 600 Mg Tabcr) 600 mg PO Q12 [facility] Stop: 03/09/22 09:29 Last Admin: 02/11/22 19:43 Dose: 600 mg Promethazine HCl 12.5 mg/ (Sodium Chloride) 50.5 mls @ 202 mls/hr IV Q6H PRN PRN Reason: Nausea And Vomiting Stop: 03/07/22 06:14 Last Infusion: 02/12/22 01:24 Dose: Infused Meropenem 500 mg/ Syringe 10 mls @ 2 mls/min IV Q6H [facility]; Protocol Stop: 02/15/22 13:59 Last Admin: 02/12/22 01:05 Dose: 2 mls/min Vancomycin HCl 1,250 mg/ (Sodium Chloride) 275 mls @ 200 mls/hr IV Q12H [facility] Stop: 02/16/22 02:59 Last Infusion: 02/12/22 04:22 Dose: Infused Acetaminophen (Ofirmev) 1,000 mg in 100 mls @ 400 mls/hr IV Q8H PRN; Protocol PRN Reason: Pain or fever Stop: 02/15/22 00:14 Insulin Aspart (Insulin Aspart Per Unit) 0 units SC ACHS [facility] Stop: 03/07/22 11:29 Last Admin: 02/11/22 21:19 Dose: Not Given Insulin Glargine (Lantus Per Unit Charge) 10 units SQ BID [facility] Stop: 03/07/22 11:14 Last Admin: 02/11/22 21:19 Dose: Not Given Labetalol HCl (Labetalol Hcl Iv 5 Mg/Ml 20ml) 10 mg IV Q4H PRN PRN Reason: Hypertension Stop: 03/13/22 22:54 Lactulose (Lactulose Syrup 30 Gm/45 Ml Udp) 30 gm PO BID [facility] Stop: 03/07/22 11:29 Last Admin: 02/11/22 19:44 Dose: 30 gm Lamotrigine (Lamotrigine 25 Mg Tab) [facility] [place] [facility]: 03/07/22 11:14 Last Admin: 02/11/22 08:43 Dose: 75 mg Lamotrigine (Lamotrigine 100 Mg Tab) [facility] [place] Stop: 03/07/22 11:14 Last Admin: 02/11/22 08:42 Dose: 100 mg Lamotrigine (Lamotrigine 100 Mg Tab) 150 mg PO [facility] Stop: 03/11/22 18:44 Last Admin: 02/11/22 19:44 Dose: 150 mg Levothyroxine Sodium (Levothyroxine Sodium 88 Mcg Tablet) [facility] Stop: 03/07/22 11:14 Last Admin: 02/12/22 06:04 Dose: Not Given Magnesium Oxide (Magnesium Oxide 400 Mg Tab) 400 mg PO [facility] Stop: 03/11/22 08:59 Last Admin: 02/11/22 08:46 Dose: 400 mg Metoprolol Succinate (Metoprolol Succ 50mg Ext Rel Tab) 50 mg PO [facility] Stop: 03/07/22 11:14 Last Admin: 02/11/22 08:42 Dose: 50 mg Miscellaneous (Carbohydrates For Hypoglycemia ) 15 - 30 gm PO UD PRN PRN Reason: Hypoglycemia Protocol Stop: 03/07/22 10:49 Miscellaneous Information (Vancomycin Consult Active) 1 each N/A UD PRN PRN Reason: Consult Stop: 03/10/22 14:10 Montelukast Sodium (Montelukast Sodium 10 Mg Tablet) 10 mg PO DAILY@1600 [facility] Stop: 03/07/22 15:59 Last Admin: 02/11/22 16:27 Dose: Not Given Morphine Sulfate (Morphine Sulfate 4 Mg/Ml 1 Ml Carp\Vial) 2 mg IV Q4H PRN PRN Reason: Pain Stop: 02/19/22 06:14 Last Admin: 02/12/22 04:23 Dose: 2 mg Morphine Sulfate (Morphine Sulfate Cr 15 Mg Tabcr) 15 mg PO [facility] Stop: 02/25/22 20:59 Last Admin: 02/11/22 21:20 Dose: Not Given Naloxone HCl (Naloxone Hcl 0.4 Mg/1 Ml Vial/Carp) 0.1 mg IV UD PRN PRN Reason: Opiate Overdose Stop: 03/07/22 10:49 Oxybutynin Chloride (Oxybutynin Chloride Xl 5 Mg Tabcr) 10 mg PO QAM [facility] Stop: 03/07/22 11:14 Last Admin: 02/11/22 08:43 Dose: 10 mg Oxycodone HCl (Oxycodone Hcl Ir 5 Mg Tab (Immediate Release)) 5 mg PO Q4H PRN PRN Reason: Pain Stop: 02/19/22 06:14 Last Admin: 02/10/22 12:06 Dose: 5 mg Pantoprazole Sodium (Pantoprazole 40 Mg Tab) 40 mg PO DAILYBB [facility] Stop: 03/07/22 11:14 Last Admin: 02/12/22 06:04 Dose: Not Given Potassium Chloride (Potassium Chloride Crtab 20 Meq Tabcr) 40 meq PO BID [facility] Stop: 03/12/22 20:59 Last Admin: 02/11/22 19:47 Dose: 40 meq Rifaximin (Rifaximin 550 Mg Tablet) 550 mg PO BID [facility] Stop: 03/07/22 11:14 Last Admin: 02/11/22 19:48 Dose: 550 mg Spironolactone (Spironolactone 25 Mg Tab) 50 mg PO DAILY [facility] Stop: 03/14/22 08:59 Tamsulosin HCl (Tamsulosin Hcl 0.4 Mg Cap) 0.4 mg PO QAM [facility] Stop: 03/07/22 11:14 Last Admin: 02/11/22 08:45 Dose: 0.4 mg Torsemide (Torsemide 20 Mg Tab) 20 mg PO QAM [facility] Stop: 03/10/22 08:59 Last Admin: 02/11/22 08:45 Dose: 20 mg Venlafaxine HCl (Venlafaxine Hcl Xr 150 Mg Capxr) 150 mg PO QAM [facility] Stop: 03/07/22 11:14 Last Admin: 02/11/22 08:45 Dose: 150 mg Venlafaxine HCl (Venlafaxine Hcl Xr 75 Mg Capxr) 75 mg PO QAM [facility] Stop: 03/07/22 11:14 Last Admin: 02/11/22 08:45 Dose: 75 mg
[2022-02-12] MEDS: ENOXAPARIN INJ 30 MG/0.3 ML SYR SQ SCH ×2 (10:27→19:36)
[2022-02-12] MEDS: guaiFENesin 600 MG TABCR PO SCH ×2 (10:27→19:36)
[2022-02-12] MEDS: ATORVASTATIN 40 MG TAB PO SCH (10:27)
[2022-02-12] MEDS: INSULIN ASPART PER UNIT SC SCH ×4 (10:27→20:20)
[2022-02-12] MEDS: LANTUS PER UNIT CHARGE SQ SCH ×2 (10:28→20:20)
[2022-02-12] MEDS: LACTULOSE SYRUP 30 GM/45 ML UDP PO SCH ×2 (10:28→19:36)
[2022-02-12] MEDS: MAGNESIUM OXIDE 400 MG TAB PO SCH (10:28)
[2022-02-12] MEDS: METOPROLOL SUCC 50MG EXT REL TAB PO SCH (10:29)
[2022-02-12] MEDS: POTASSIUM CHLORIDE CRTAB 20 MEQ TABCR PO SCH ×2 (10:29→20:00)
[2022-02-12] MEDS: OXYBUTYNIN CHLORIDE XL 5 MG TABCR PO SCH (10:29)
[2022-02-12] MEDS: SPIRONOLACTONE 25 MG TAB PO SCH (10:30)
[2022-02-12] MEDS: TAMSULOSIN HCL 0.4 MG CAP PO SCH (10:30)
[2022-02-12] MEDS: rifAXIMin 550 MG TABLET PO SCH ×2 (10:30→19:38)
--- NOTE | 2022-02-12 10:50 | Orthopedic Progress Note ---
Date of Service February 12, 2022 Assessment & Plan (1) S/P hip hemiarthroplasty: Plan: HgB and HcT trending upward slightly at 8.0 and 25.4 respectively Pain control with PO medication Total hip precautions Abduction pillow use DVT prophy with TEDS and Lovenox Vanco ordered by medicine service for UTI bacteremia. Trough will be monitored by pharmacy Ice with EZ wrap PT/OT Will need placement in SNF Admission and Anticipated Discharge Date Admission Date: February 05, 2022 Subjective This 71 yo F is seen this AM for f/u of left hip hemiarthropasty performed by Dr. Cha on 02/05/22. Patient is more coherent today with A&Ox2. She is able to answer simple questions appropriately. He Prevena intact with no drainage in the canister. She denies CP, SOB, fever, chills, nausea or vomiting. Review of Systems Review of Systems: All systems reviewed & are unremarkable except as noted in HPI & below Physical Exam Physical Exam: Left Hip: Prevena intact w/o drainage. Unable to SLRT. Unable to detect light sensation to touch in either foot or lower leg due to Charcot. Light passive hip flexion and internal rotation cause pain. No pain with passive external rotation. Tolerates log rolling. Results & Data ([facility]) Vital Signs (Past 12 Hours) Vital Signs Temp Pulse Pulse Pulse Resp BP Pulse Ox 02/12/22 07:41 02/12/22 07:29 37.1 C 96 H 20 112/67 96 02/12/22 07:08 86 02/12/22 03:20 37.4 C 91 H 16 127/60 98 02/11/22 23:00 88 02/12/22 00:41 37.3 C 02/11/22 23:23 115/89 O2 Del Method 02/12/22 07:41 Room Air 02/12/22 07:29 Room Air 02/12/22 07:08 02/12/22 03:20 Room Air 02/11/22 23:00 02/12/22 00:41 02/11/22 23:23 Diagnostic Findings Laboratory Results WBC 9.91 K/ul (4.8-10.8) 02/12/22 06:49 RBC 3.27 M/uL (3.93-5.22) L 02/12/22 06:49 Hgb 8.0 g/dl (12.0-16.0) L 02/12/22 06:49 Hct 25.4 % (34.1-44.9) L 02/12/22 06:49 MCV 77.7 fL (80.0-100.0) L 02/12/22 06:49 MCH 24.5 pg (25.0-34.0) L 02/12/22 06:49 MCHC 31.5 g/dL (32.0-36.0) L 02/12/22 06:49 RDW Std Deviation 53.0 fL (36.4-46.3) H 02/12/22 06:49 RDW Coeff of Guillermo 19.1 % (11.5-14.5) H 02/12/22 06:49 Plt Count 149 K/uL (130-400) 02/12/22 06:49 MPV 10.9 fL (9.4-12.3) 02/12/22 06:49 Immature Gran % (Auto) 1.0 % 02/06/22 07:37 Neut % (Auto) 79.4 % 02/06/22 07:37 Lymph % (Auto) 10.5 % 02/06/22 07:37 [place] % (Auto) 8.5 % 02/06/22 07:37 Eos % (Auto) 0.2 % 02/06/22 07:37 Baso % (Auto) 0.4 % 02/06/22 07:37 Neut # (Auto) 8.15 K/uL (1.4-6.5) H 02/06/22 07:37 Lymph # (Auto) 1.08 K/uL (1.2-3.4) L 02/06/22 07:37 [place] # (Auto) 0.87 K/uL (0.24-0.82) H 02/06/22 07:37 Eos # (Auto) 0.02 K/uL (0-0.50) 02/06/22 07:37 Baso # (Auto) 0.04 K/uL (0-0.2) 02/06/22 07:37 Immature Gran # (Auto) 0.10 K/uL (0.00-0.02) H 02/06/22 07:37 Absolute Nucleated RBC 0.02 K/uL (0-0) H 02/12/22 06:49 Nucleated RBC % (auto) 0.2 % 02/12/22 06:49 PT 11.5 Seconds (9.0-12.0) 02/05/22 03:46 INR 1.1 (0.9-1.1) 02/05/22 03:46 Sodium 129 mmol/L (136-145) L 02/12/22 06:49 Potassium 4.1 mmol/L (3.5-5.1) 02/12/22 06:49 Chloride 94 mmol/L (98-107) L 02/12/22 06:49 Carbon Dioxide 26 mmol/L (21-32) 02/12/22 06:49 Anion Gap 9 (3-11) 02/12/22 06:49 BUN 12 mg/dl (6-23) 02/12/22 06:49 Creatinine 0.80 mg/dl (0.6-1.2) 02/12/22 06:49 Est Cr Clr Drug Dosing 83.3 ml/min 02/12/22 06:49 Est GFR ( Amer) 85.4 ml/min 02/12/22 06:49 Est GFR (Non-Af Amer) 73.7 ml/min 02/12/22 06:49 BUN/Creatinine Ratio 15.0 (10-20) 02/12/22 06:49 Glucose 154 mg/dl (70-99(Fasting)) H 02/12/22 06:49 POC Glucose 174 mg/dl (70-99) H 02/12/22 07:10 Calcium 7.9 mg/dl (8.5-10.1) L 02/12/22 06:49 Phosphorus 2.9 mg/dl (2.5-4.9) 02/12/22 06:49 Magnesium 1.8 mg/dl (1.7-2.4) 02/12/22 06:49 Total Bilirubin 1.4 mg/dl (0.2-1.0) H 02/08/22 06:05 AST 27 U/L (13-39) 02/08/22 06:05 ALT 9 U/L (7-52) 02/08/22 06:05 Alkaline Phosphatase 147 U/L (34-104) H 02/08/22 06:05 Ammonia 21.0 umol/L (18-72) 02/11/22 07:49 Total Protein 5.6 gm/dl (6.0-8.3) L 02/08/22 06:05 Albumin 2.9 gm/dl (3.4-5.0) L 02/08/22 06:05 Globulin 2.7 gm/dl (2.5-4.0) 02/08/22 06:05 Albumin/Globulin Ratio 1.1 (0.9-2) 02/08/22 06:05 25-OH Vitamin D Total 53.5 ng/ml (30-100) 02/06/22 07:37 Procalcitonin 0.90 ng/ml (0-0.5) H 02/08/22 14:41 Urine Color Yellow 02/05/22 03:18 Urine Appearance Clear (Clear) 02/05/22 03:18 Urine pH 7.5 (4.5-7.5) 02/05/22 03:18 Ur Specific [place] 1.008 (1.000-1.030) 02/05/22 03:18 Urine Protein Negative (Negative) 02/05/22 03:18 Urine Glucose (UA) Negative (Negative) 02/05/22 03:18 Urine Ketones Negative (Negative) 02/05/22 03:18 Urine Blood Negative (Negative) 02/05/22 03:18 Urine Nitrite Negative (Negative) 02/05/22 03:18 Urine Bilirubin Negative (Negative) 02/05/22 03:18 Urine Urobilinogen Negative (Negative) 02/05/22 03:18 Ur Leukocyte Esterase Negative (Negative) 02/05/22 03:18 Vancomycin Trough 16.2 mcg/ml (10-20) 02/10/22 12:24 SARS-CoV-2, RNA, NAAT NEGATIVE (NEGATIVE) 02/05/22 05:10 Blood Type O Negative 02/05/22 08:11 Antibody Screen POSITIVE A 02/05/22 08:11 Antibody Identification Anti-C Anti-D 02/05/22 08:11 Antibody Identification Anti-C Anti-D 02/05/22 08:11 Antibody ID Comment 02/05/22 08:11 Antigen Identification C Antigen - NEGATIVE 02/05/22 08:11 Crossmatch See Detail 02/05/22 08:[address] 02/05/22 03:[address] DOSE: 580.48 mGy.cm HISTORY: Fall. Head injury. Trauma TECHNIQUE: Multiaxial CT images of the head were performed without the use of intravenous contrast. Automated exposure control was utilized for this study. A dose lowering technique was utilized adhering to the principles of ALARA. Comparison: Head CT 12/12/2021. Findings: The paranasal sinuses and mastoid air cells are clear. The calvarium and skull base are intact. There is no mass, hematoma, midline shift, acute infarct. White matter hypodensity is nonspecific but suggestive of microvascular ischemic change. The ventricles and sulci demonstrate mild age-related involutional changes. 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 Impression: No significant change compared to the prior study. No acute intracranial abnormality. ACT 112: Negative or not required by law. Electronically signed by: Marquez Lindsay M.D. 02/05/2022 7:[address] 02/05/22 04:15 CT pelvis wo con CLINICAL HISTORY: fall COMPARISON STUDY: CT of the abdomen and pelvis January 23, 2022. TECHNIQUE: Axial images of the pelvis were obtained without IV contrast. Sagittal and coronal reconstructions were viewed. Automated exposure control was utilized for the study. A dose lowering technique was utilized adhering to the principles of ALARA. FINDINGS: Bladder is distended. Moderate stool within visualized portions of the colon is noted. Note is made of an acute displaced subcapital left femoral fracture. This is new since CT of January 23, 2022. Fracture is displaced approximately 2 cm. No additional acute fractures are identified on this examination. There is no proximal right femoral fracture. Sacroiliac joints and symphysis pubis are intact. Multilevel degenerative changes within visualized portions of the lumbar spine are noted with posterior decompression within the lower lumbar spine. IMPRESSION: Acute displaced subcapital left femoral fracture. ACT 112: Negative or not required by law. Electronically signed by: Mu Bonds M.D. 02/05/2022 7:30 AM Hip X-Ray 02/05/22 17:31 LEFT HIP 2 VIEWS CLINICAL HISTORY: Postoperative examination. FINDINGS: AP and crosstable lateral views of the left femur are compared to study dated 02/05/2022. A left hip arthroplasty is in near-anatomic alignment. No acute fracture is seen. Skin clips, soft tissue edema, and subcutaneous gas overlying the left hip are expected postoperative changes. IMPRESSION: Expected postoperative findings status post left hip arthroplasty. No acute fracture is seen. Electronically signed by: Berto Snow M.D. 02/05/2022 10:[address] 02/07/22 12:50 CT hip LT wo con HISTORY: 71 years-old Female anemia s/p L hip surgery follow-up study in a patient with an acute subcapital left femoral fracture with subsequent total joint arthroplasty. Acute postoperative anemia COMPARISON: Pelvis 02/05/2022, left hip radiographs 02/05/2022 TECHNIQUE: Multiple axial CT images of the left hip were obtained without the use of IV contrast. A dose lowering technique was used consistent with the principals of MELCHOR. FINDINGS: No acute intrapelvic abnormality identified. There is moderate colonic fecal retention. Gallagher catheter is noted within the urinary bladder lumen. Intraluminal air is likely secondary to instrumentation. Satisfactory alignment of the recently placed left hip total joint arthroplasty. Streak artifact from the hardware limits the study. No acute fracture or malalignment identified. Lateral skin daniel are present. Expected postoperative subcutaneous edema with deep tissue air within the subcutaneous tissues and musculature. Moderate atrophy of the hamstring suggestive of chronic injury. No large postoperative hematoma. There is a 1.2 x 4.6 x 5.7 cm collection distal air and likely hemorrhagic debris/fluid which tracks between the gluteus medius and minimus musculature on image 47 series 5. IMPRESSION: 1. Satisfactory alignment of the left hip total joint arthroplasty. No acute fracture identified. 2. Expected postoperative changes with a small postoperative collection interposed between the gluteus medius and minimus musculature measuring up to 5.7 cm. 3. No large postoperative hematoma. ACT 112: Negative or not required by law. The above report was generated using voice recognition software. It may contain grammatical, syntax or spelling errors. Electronically signed by: Tommie Loredo M.D. 02/07/2022 2:57 PM KUB X-Ray 02/07/22 17:08 KUB CLINICAL HISTORY: vomiting, abd. pain COMPARISON STUDY: CT of the abdomen and pelvis January 23, 2022. FINDINGS: Left hip arthroplasty is partially imaged. Skin daniel are present. Bowel gas pattern is normal. No evidence for a bowel obstruction. Note is made of a moderate amount stool within the colon and rectum. Gas within the bladder is again noted. This was shown on prior left head CT and due to indwelling [place]. IMPRESSION: 1. No evidence for a bowel obstruction. 2. Moderate amount of stool within the colon and rectum. ACT 112: Negative or not required by law. Electronically signed by: Mu Bonds M.D. 02/07/2022 5:52 PM Chest X-Ray 02/08/22 09:05 SINGLE VIEW CHEST CLINICAL HISTORY: Fever. FINDINGS: An AP, portable, upright chest radiograph is compared to study dated 02/07/2022 and correlated with chest CT dated 10/20/2020. The patient is status post midline sternotomy. The heart is mildly enlarged noting atherosclerotic calcification of the thoracic aorta. The pulmonary vasculature is noncongested. There is chronic elevation of the right hemidiaphragm with associated atelectasis. The lungs and pleural spaces are otherwise clear. No pneumothorax is seen. The skeletal structures are osteopenic. The bony thorax is grossly intact. Cholecystectomy clips are seen in the right upper quadrant. IMPRESSION: Cardiomegaly with no active disease in the chest. ACT 112: Negative or not required by law. Electronically signed by: Berto Snow M.D. 02/08/2022 9:40 AM
--- NOTE | 2022-02-12 13:55 | Nephrology Progress Note ---
Date of Service February 12, 2022 Assessment & Plan Admission and Anticipated Discharge Date Admission Date: February 05, 2022 Subjective Assessment & Plan (1) Hyponatremia: Plan: Patient with hypervolemic hyponatremia. Conitnue potassium chloride to 40 mEq twice daily. Continue to monitor sodium daily. Patient should be on a fluid restriction of 1.2 L daily. Na holding steady around 128-132 range. Lower Aldactone to 50 daily. Increase torsemide to 20 bid to see if this makes any difference with Sodium. Subjective Seen for hyponatremia. Sodium is down a bit. Edema +. No shortness of breath Review of Systems Review of Systems: All other systems were reviewed and negative except as noted in HPI Physical Exam Physical Exam: General exam: Appears comfortable, no acute distress HEENT: Pupils are equal and reactive to light Neck: No JVD, neck is supple trachea is midline Respiratory system: Clear breath sounds bilaterally. Gastrointestinal: Abdomen is soft, non distended, non tender, bowel sounds are present CVS: Regular rate and rhythm. No murmurs, rubs or gallops Musculoskeletal: No joint or muscle tenderness Extremities: Non tender, no edema, peripheral pulses are present Neuro: Oriented, no tremors, no focal neurological deficits Skin: No rashes Results & Data ([facility]) Vital Signs (Past 12 Hours) Vital Signs Temp Pulse Pulse Pulse Resp BP Pulse Ox 02/12/22 11:37 37.2 C 85 18 114/60 97 02/12/22 07:41 02/12/22 07:29 37.1 C 96 H 20 112/67 96 02/12/22 07:08 86 02/12/22 03:20 37.4 C 91 H 16 127/60 98 O2 Del Method 02/12/22 11:37 Room Air 02/12/22 07:41 Room Air 02/12/22 07:29 Room Air 02/12/22 07:08 02/12/22 03:20 Room Air
--- NOTE | 2022-02-12 15:38 | Pharmacy Report ---
Pharmacy PK ABX Note - Date of Service February 12, 2022 - Assessment and Plan Assessment * 71 year old F previously receiving ertapenem/doxycycline transitioning to vancomycin/meropenem for acute worsening on 02/09. * Pertinent microbiologic data includes: ESBL E coli growing in outpatient urine culture, possible surgical site infection. * ID consulted - de-escalate meropenem to ertapenem. I also reached out to Dr. Kothari who confirmed that vanco could be stopped too. Discussed with Dr. Hall who is aware and will assess Vancomycin * Random level of 22.9 mcg/mL today (NOT a trough) was associated with a likely supratherapeutic AUC. Will reduce vancomycin dose Plan * Maintenance dose: 1000 mg IV every 12 hours * Regimen is predicted to achieve target AUC/GALINDO of 400-600 mg/L.hr * Random level to be ordered if vancomycin continued >48 hours Pharmacy will continue to follow and will adjust dose/frequency as necessary. Thank you. Pharmacy has transitioned to AUC monitoring for vancomycin. AUC/GALINDO is the preferred PK/PD target and is associated with decreased risk of nephrotoxicity compared to traditional trough targets.
[2022-02-12] MEDS: MONTELUKAST SODIUM 10 MG TABLET PO SCH (16:19)
[2022-02-12] MEDS: VANCOMYCIN HCL 1,000 MG in SODIUM CHLORIDE 0.9% 250 ML IV SCH (17:18)
[2022-02-12] MEDS ORDERED: LORazepam 0.25 MG in SYRINGE 0.125 ML IV STA (19:18)
[2022-02-12] MEDS: ARIPIprazole 1 MG/ML ORAL SOLN 150 ML BTL PO SCH (19:36)
[2022-02-12] MEDS: MoRPHine SULFATE CR 15 MG TABCR PO SCH ×2 (20:02→20:33)
[2022-02-12] MEDS ORDERED: LORazepam 0.25 MG in SYRINGE 0.125 ML IV ONE (23:50)
[2022-02-13] MEDS: MEROPENEM 500 MG in SYRINGE 0 ML IV SCH ×2 (01:01→09:37)
[2022-02-13] MEDS: VANCOMYCIN HCL 1,000 MG in SODIUM CHLORIDE 0.9% 250 ML IV SCH (04:47)
[2022-02-13] MEDS: ACETAMINOPHEN 325 MG TAB PO PRN (05:01)
[2022-02-13] MEDS: LEVOTHYROXINE SODIUM 88 MCG TABLET PO SCH (06:10)
[2022-02-13] MEDS: PANTOprazole 40 MG TAB PO SCH (06:10)
[2022-02-13] MEDS: rifAXIMin 550 MG TABLET PO SCH ×2 (08:20→18:59)
[2022-02-13] MEDS: SPIRONOLACTONE 25 MG TAB PO SCH ×2 (08:20→18:59)
[2022-02-13] MEDS: lamoTRIgine 25 MG TAB PO SCH (08:20)
[2022-02-13] MEDS: TAMSULOSIN HCL 0.4 MG CAP PO SCH (08:20)
[2022-02-13] MEDS: TORSEMIDE 20 MG TAB PO SCH ×2 (08:20→14:49)
[2022-02-13] MEDS: lamoTRIgine 100 MG TAB PO SCH ×2 (08:20→18:59)
[2022-02-13] MEDS: VENLAFAXINE HCL XR 150 MG CAPXR PO SCH (08:21)
[2022-02-13] MEDS: METOPROLOL SUCC 50MG EXT REL TAB PO SCH (08:21)
[2022-02-13] MEDS: VENLAFAXINE HCL XR 75 MG CAPXR PO SCH (08:21)
[2022-02-13] MEDS: OXYBUTYNIN CHLORIDE XL 5 MG TABCR PO SCH (08:21)
[2022-02-13] MEDS: INSULIN ASPART PER UNIT SC SCH ×4 (08:22→20:30)
[2022-02-13] MEDS: LANTUS PER UNIT CHARGE SQ SCH ×2 (08:27→20:30)
[2022-02-13] MEDS: clonazePAM 0.5 MG TAB PO SCH ×3 (08:27→20:30)
[2022-02-13] MEDS: MAGNESIUM OXIDE 400 MG TAB PO SCH (08:33)
[2022-02-13] MEDS: ATORVASTATIN 40 MG TAB PO SCH (08:33)
[2022-02-13] MEDS: ASPIRIN 81 MG ECTAB PO SCH (08:33)
[2022-02-13] MEDS: guaiFENesin 600 MG TABCR PO SCH (08:33)
[2022-02-13] MEDS: LACTULOSE SYRUP 30 GM/45 ML UDP PO SCH ×2 (08:36→18:59)
[2022-02-13] MEDS: ENOXAPARIN INJ 30 MG/0.3 ML SYR SQ SCH ×2 (08:36→19:10)
[2022-02-13] MEDS: POTASSIUM CHLORIDE CRTAB 20 MEQ TABCR PO SCH ×2 (08:36→20:31)
[2022-02-13] MEDS: MoRPHine SULFATE 4 MG/ML 1 ML CARP\\VIAL IV PRN (10:36)
[2022-02-13 11:42] LABS: Hematocrit (blood only) 27.7 % (34.1-44.9); Hemoglobin 8.9 g/dl (12.0-16.0); Mean Corpuscular Hemoglobin 24.4 pg (25.0-34.0); Mean Corpuscular Hgb Conc 32.1 g/dL (32.0-36.0); Mean Corpuscular Volume 75.9 fL (80.0-100.0); Mean Platelet Volume 10.5 fL (9.4-12.3); Nucleated RBC # (auto) 0.02 K/uL (0-0); Nucleated RBC % (auto) 0.2 %; Platelet Count 176 K/uL (130-400); RDW Coefficient of Variation 19.6 % (11.5-14.5); RDW Standard Deviation 52.8 fL (36.4-46.3); Red Blood Count 3.65 M/uL (3.93-5.22); White Blood Count 8.46 K/ul (4.8-10.8)
[2022-02-13 12:01] LABS: BUN Creatinine Ratio 15.2 (10-20); Calcium 8.2 mg/dl (8.5-10.1); Creatinine Clr Calc Pharmacy 72.4 ml/min; Est GFR (African American) 72.1 ml/min; Est GFR (Non-African American) 62.2 ml/min; Magnesium 1.7 mg/dl (1.7-2.4); Phosphorus 2.7 mg/dl (2.5-4.9); Potassium 3.4 mmol/L (3.5-5.1)
--- NOTE | 2022-02-13 12:57 | Hospitalist Progress Note ---
Date of Service February 13, 2022 Assessment & Plan (1) Hip fracture, left: Plan: Secondary to fall and s/p left hemiarthroplasty on 02/[address] Cha History ambulatory dysfunction/Surkppv-Whlcj-Dvrkx disease Patient predisposed by lethargy secondary to multiple neuropsychotropic and chronic morphine Hepatic encephalopathy is not currently present as patient is oriented and ammonia level is consistently normal. Noted h/o NAFLD cirrhosis. Has had constipation and continued lactulose. Cont activity per Ortho Cont wound vac DVT prophylaxis (2) Infection due to ESBL-producing Escherichia coli: Plan: History ESBL E. coli UTI ongoing Ertapenem Rx Ucultx (01/16) positive for ESBL E. coli, and outpatient record (Epic) Per family, started on ertapenem on Friday (1 week ago) Repeat UA negative Pt cont. to have intermittent fevers Continued ertapenem, added doxycycline blood cultures (01/31) - negative 02/08 - WBC elevated at 16,000, switched ertapenem and Doxy to meropenem plus vancomycin 02/09 WBC down to 12,000 02/10 WBC normalized - 8,600 ID consult - recommend ertapenem monotherapy for total 10 days. (3) Acute blood loss anemia: Plan: Acute blood loss anemia post-op vs. dilutional pre-op Hgb 12.1, POD#1 Hb was 8.4 s/p 1 unit of pRBC -on 8/ H/H currently stable, still anemic, and no active bleeding. Plan Chronic diastolic heart failure (EF 55 to 59%, TTE 09/2021)-euvolemic, stable. There was a question of hypoxia today and oxygen was applied, however, patient has acryllic nails that are not allowing a good wave form on the reading. Will readjust monitoring probe and need to prove she is not hypoxic prior to moving off telemetry. hx CAD status post CABG/stent-chronic, stable, no chest pain or active symptoms. Moderate Hypertension, stable Hyperlipidemia, on statin Rx Bipolar disorder/OCD - cont. home medications -Patient becomes suspicious and paranoid on and off while in the hospital -Daughter Carolyn often present at bedside, to help with care -We will try to arrange for Carolyn to be able to visit any time, and possibly having one-on-one sitter for the patient DM2 insulin requiring, well-controlled as of recent hemoglobin A1c of 11 December 2021 Basal insulin adjusted for n.p.o. status, ISS BG goal 110-140 Chronic hyponatremia cont. to monitor Hypervolemic hyponatremia, sodium improved after Lasix Resumed torsemide and spironolactone FR 1.2L Nephrology following Na 132 today Past history DVT as per records DVT prophylaxis. lovenox (per ortho) Full code Dispo-to [facility] tomorrow. Cristiane Mo DO [facility] Hospitalist Admission and Anticipated Discharge Date Admission Date: February 05, 2022 Subjective 71-year-old female suffered a mechanical fall at home and is status post left hip repair on 02/05/[address] Barney Rooney. There is a wound VAC in place. The patient was able to work with physical therapy today and tires easily therefore is plan to go to rehab. She verbalizes understanding of this plan. She is able to weight-bear as tolerated with walker or crutches per orthopedics. She did require some morphine 2 mg this morning and takes long-acting morphine twice daily at home with oxycodone for breakthrough pain. She is only on long-acting morphine at night here in the hospital and reports an increase in pain in the posterior upper legs today. She otherwise denies any symptoms. Review of Systems Review of Systems: All systems reviewed and negative except as indicated above. Physical Exam Physical Exam: CONSTITUTIONAL: WNWD, vitals as above, generally well- appearing, NAD EYES: normal conjunctivae, no scleral icterus ENT: external ear and nose normal, MMM NECK: trachea midline RESPIRATORY: clear to auscultation bilaterally, no crackles, rales or wheezes, normal respiratory effort CARDIOVASCULAR: regular rate and rhythm, S1 and 2 heard without murmurs, gallops or rubs, no JVD, no peripheral edema CHEST: inspection of chest was normal GASTROINTESTINAL: soft, nontender, obese, no guarding MUSCULOSKELETAL: moves upper extremities equally, wound vac in place to LLE, head is normocephalic and atraumatic SKIN: warm and dry, wound vac in place to left hip. NEUROLOGIC: CN 2-12 grossly intact, no sensory deficit in lower extremities, normal cognition, normal speech, no tremor PSYCHIATRIC: alert cooperative and oriented to person, place and time. Euthymic mood, makes good eye contact, language grossly intact, recent and remote memory grossly intact. Results & Data Results & Data ([facility]) Vital Signs (Past 12 Hours) Vital Signs Temp Pulse Pulse Resp BP BP Pulse Ox 02/13/22 11:28 36.9 C 84 18 100/60 96 02/13/22 07:38 02/13/22 08:04 36.8 C 86 20 124/91 100 02/13/22 07:15 85 O2 Del Method 02/13/22 11:28 Room Air 02/13/22 07:38 Room Air 02/13/22 08:04 Room Air 02/13/22 07:15 Laboratory Results Short CBC 02/13/22 Range/Units 11:21 WBC 8.46 (4.8-10.8) K/ul Hgb 8.9 L (12.0-16.0) g/dl Hct 27.7 L (34.1-44.9) % Plt Count 176 (130-400) K/uL BMP 02/13/22 11:21 Sodium 132 L Potassium 3.4 L Chloride 95 L Carbon Dioxide 28 BUN 14 Creatinine 0.92 Glucose 170 H Calcium 8.2 L Medications Administered Current Inpatient Medications Acetaminophen (Acetaminophen 325 Mg Tab) 325 mg PO Q6H PRN PRN Reason: Mild Pain Stop: 03/07/22 06:14 Last Admin: 02/13/22 05:01 Dose: 325 mg Aripiprazole (Aripiprazole 1 Mg/Ml Oral Soln 150 Ml Btl) 2 mg PO HS [facility] Stop: 03/07/22 20:59 Last Admin: 02/12/22 19:36 Dose: 2 mg Aspirin (Aspirin 81 Mg Ectab) [facility] Stop: 03/07/22 11:29 Last Admin: 02/13/22 08:33 Dose: 81 mg Atorvastatin Calcium (Atorvastatin 40 Mg Tab) 40 mg PO QAM [facility] Stop: 03/07/22 11:14 Last Admin: 02/13/22 08:33 Dose: 40 mg Bisacodyl (Bisacodyl 10 Mg Supp) 10 mg AL DAILY PRN PRN Reason: Constipation Stop: 03/07/22 10:49 Clonazepam (Clonazepam 0.5 Mg Tab) 0.5 mg PO TID [facility] Stop: 03/14/22 07:44 Last Admin: 02/13/22 08:27 Dose: 0.5 mg Dextrose (Dextrose 50% 50 Ml Syringe) 25 - 50 ml IV UD PRN; Protocol PRN Reason: Hypoglycemia Protocol Stop: 03/07/22 10:49 Enoxaparin Sodium (Enoxaparin Inj 30 Mg/0.3 Ml Syr) 30 mg SQ Q12H [facility] Stop: 03/08/22 07:59 Last Admin: 02/13/22 08:36 Dose: Not Given Glucagon (Glucagon For Inj 1 Mg Vial) 1 mg SQ UD PRN; Protocol PRN Reason: Hypoglycemia Protocol Stop: 03/07/22 10:49 Glucose (Glucose 40% Gel 15 Gm Tube) 15 - 30 gm PO UD PRN; Protocol PRN Reason: Hypoglycemia Protocol Stop: 03/07/22 10:49 Glucose (Glucose 10 Tab/Tube) 4 - 8 tab PO UD PRN; Protocol PRN Reason: Hypoglycemia Treatment Stop: 03/07/22 10:49 Guaifenesin (Guaifenesin 600 Mg Tabcr) 600 mg PO Q12 [facility] Stop: 03/09/22 09:29 Last Admin: 02/13/22 08:33 Dose: 600 mg Promethazine HCl 12.5 mg/ (Sodium Chloride) 50.5 mls @ 202 mls/hr IV Q6H PRN PRN Reason: Nausea And Vomiting Stop: 03/07/22 06:14 Last Infusion: 02/12/22 01:24 Dose: Infused Acetaminophen (Ofirmev) 1,000 mg in 100 mls @ 400 mls/hr IV Q8H PRN; Protocol PRN Reason: Pain or fever Stop: 02/15/22 00:14 Ertapenem 1,000 mg/ Syringe 10 mls @ 2 mls/min IV Q24H [facility] Stop: 02/14/22 15:04 Insulin Aspart (Insulin Aspart Per Unit) 0 units SC ACHS [facility] Stop: 03/07/22 11:29 Last Admin: 02/13/22 12:22 Dose: 3 units Insulin Glargine (Lantus Per Unit Charge) 10 units SQ BID [facility] Stop: 03/07/22 11:14 Last Admin: 02/13/22 08:27 Dose: 10 units Labetalol HCl (Labetalol Hcl Iv 5 Mg/Ml 20ml) 10 mg IV Q4H PRN PRN Reason: Hypertension Stop: 03/13/22 22:54 Lactulose (Lactulose Syrup 30 Gm/45 Ml Udp) 30 gm PO BID [facility] Stop: 03/07/22 11:29 Last Admin: 02/13/22 08:36 Dose: Not Given Lamotrigine (Lamotrigine 25 Mg Tab) 75 mg PO QAM [facility] Stop: 03/07/22 11:14 Last Admin: 02/13/22 08:20 Dose: 75 mg Lamotrigine (Lamotrigine 100 Mg Tab) [facility] Stop: 03/07/22 11:14 Last Admin: 02/13/22 08:20 Dose: 100 mg Lamotrigine (Lamotrigine 100 Mg Tab) 150 mg PO [facility] Stop: 03/11/22 18:44 Last Admin: 02/12/22 19:36 Dose: 150 mg Levothyroxine Sodium (Levothyroxine Sodium 88 Mcg Tablet) 88 mcg PO DAILYBB [facility] Stop: 03/07/22 11:14 Last Admin: 02/13/22 06:10 Dose: Not Given Magnesium Oxide (Magnesium Oxide 400 Mg Tab) [facility] [place] Stop: 03/11/22 08:59 Last Admin: 02/13/22 08:33 Dose: 400 mg Metoprolol Succinate (Metoprolol Succ 50mg Ext Rel Tab) [facility] [place] Stop: 03/07/22 11:14 Last Admin: 02/13/22 08:21 Dose: 50 mg Miscellaneous (Carbohydrates For Hypoglycemia ) 15 - 30 gm PO UD PRN PRN Reason: Hypoglycemia Protocol Stop: 03/07/22 10:49 Montelukast Sodium (Montelukast Sodium 10 Mg Tablet) 10 mg PO DAILY@1600 [facility] Stop: 03/07/22 15:59 Last Admin: 02/12/22 16:19 Dose: 10 mg Morphine Sulfate (Morphine Sulfate 4 Mg/Ml 1 Ml Carp\Vial) 2 mg IV Q4H PRN PRN Reason: Pain Stop: 02/19/22 06:14 Last Admin: 02/13/22 10:36 Dose: 2 mg Morphine Sulfate (Morphine Sulfate Cr 15 Mg Tabcr) 15 mg PO [facility] Stop: 02/25/22 20:59 Last Admin: 02/12/22 20:33 Dose: Not Given Naloxone HCl (Naloxone Hcl 0.4 Mg/1 Ml Vial/Carp) 0.1 mg IV UD PRN PRN Reason: Opiate Overdose Stop: 03/07/22 10:49 Oxybutynin Chloride (Oxybutynin Chloride Xl 5 Mg Tabcr) 10 mg PO QAM [facility] Stop: 03/07/22 11:14 Last Admin: 02/13/22 08:21 Dose: 10 mg Oxycodone HCl (Oxycodone Hcl Ir 5 Mg Tab (Immediate Release)) 5 mg PO Q4H PRN PRN Reason: Pain Stop: 02/19/22 06:14 Last Admin: 02/10/22 12:06 Dose: 5 mg Pantoprazole Sodium (Pantoprazole 40 Mg Tab) 40 mg PO DAILYBB [facility] Stop: 03/07/22 11:14 Last Admin: 02/13/22 06:10 Dose: Not Given Potassium Chloride (Potassium Chloride Crtab 20 Meq Tabcr) 40 meq PO BID [facility] Stop: 03/12/22 20:59 Last Admin: 02/13/22 08:36 Dose: Not Given Rifaximin (Rifaximin 550 Mg Tablet) 550 mg PO BID [facility] Stop: 03/07/22 11:14 Last Admin: 02/13/22 08:20 Dose: 550 mg Spironolactone (Spironolactone 25 Mg Tab) 50 mg PO DAILY [facility] Stop: 03/14/22 08:59 Last Admin: 02/13/22 08:20 Dose: 50 mg Tamsulosin HCl (Tamsulosin Hcl 0.4 Mg Cap) 0.4 mg PO QAM [facility] Stop: 03/07/22 11:14 Last Admin: 02/13/22 08:20 Dose: 0.4 mg Torsemide (Torsemide 20 Mg Tab) 20 mg PO [id number] [facility] Stop: 03/14/22 13:59 Last Admin: 02/13/22 08:20 Dose: 20 mg Venlafaxine HCl (Venlafaxine Hcl Xr 150 Mg Capxr) 150 mg PO QAM [facility] Stop: 03/07/22 11:14 Last Admin: 02/13/22 08:21 Dose: 150 mg Venlafaxine HCl (Venlafaxine Hcl Xr 75 Mg Capxr) 75 mg PO QAM [facility] Stop: 03/07/22 11:14 Last Admin: 02/13/22 08:21 Dose: 75 mg
[2022-02-13] MEDS ORDERED: oxyCODONE HCL IR 5 MG TAB (IMMEDIATE RELEASE) PO PRN (13:11)
[2022-02-13] MEDS ORDERED: DICYCLOMINE HCL 10 MG CAP PO PRN (13:11)
[2022-02-13] MEDS ORDERED: guaiFENesin 600 MG TABCR PO PRN (13:15)
--- NOTE | 2022-02-13 16:06 | Orthopedic Progress Note ---
Date of Service February 13, 2022 Assessment & Plan (1) S/P hip hemiarthroplasty: Plan: Pt is 8 days s/p a left hemiarthroplasty. Pt's incision is pristine and was redressed. She will continue with hip abduction pillow and hip precautions. Her cognition seems to be improving. Continue with oral pain medication/analgesics as ordered. CBC remains stable Orthopedics is recommending she transitions to a SNF center for optimal outcomes. Admission and Anticipated Discharge Date Admission Date: February 05, 2022 Subjective Pt is s/p a Left hemiarthroplasty post op day #8. She is sitting upright in bed. she is Alert and appears to be more oriented to self and place today. She states she is having some pain in her back from laying. She denies any pain in her hip. She offers no concerns today. She is due for dressing change. Her nurse reports she has been doing better today cognitively and participated with PT. Her nurse was present and JIMMY Delgado to assist w/ positioning. Physical Exam Physical Exam: She is positioned supine and rolled on to her right side w/ ABD pillow between legs to maintain hip precautions. Provena wound vac is in place This had scant drainage in it. This was removed and the incision is well approximated w/ daniel. Neg for erythema or drainage. Surrounding area has resolving ecchymosis. New dressing w/ guaze and ABD pads were applied w/ micropore tape. Pt was cooperative and she was positioned supine and was able to tolerate the dressing change. Lopez boots were in place on bilateral feet. Sensation unchanged in feet bilaterally. Results & Data ([facility]) Vital Signs (Past 12 Hours) Vital Signs Temp Pulse Pulse Resp BP BP Pulse Ox 02/13/22 15:38 37.1 C 83 21 99/52 L 97 02/13/22 11:28 36.9 C 84 18 100/60 96 02/13/22 07:38 02/13/22 08:04 36.8 C 86 20 124/91 100 02/13/22 07:15 85 O2 Del Method 02/13/22 15:38 Room Air 02/13/22 11:28 Room Air 02/13/22 07:38 Room Air 02/13/22 08:04 Room Air 02/13/22 07:15 Laboratory Results 02/13/22 02/13/22 02/13/22 Range/Units 16:14 11:21 11:21 WBC 8.46 (4.8-10.8) K/ul RBC 3.65 L (3.93-5.22) M/uL Hgb 8.9 L (12.0-16.0) g/dl Hct 27.7 L (34.1-44.9) % MCV 75.9 L (80.0-100.0) fL MCH 24.4 L (25.0-34.0) pg MCHC 32.1 (32.0-36.0) g/dL RDW Std Deviation 52.8 H (36.4-46.3) fL RDW Coeff of Guillermo 19.6 H (11.5-14.5) % Plt Count 176 (130-400) K/uL MPV 10.5 (9.4-12.3) fL Absolute Nucleated RBC 0.02 H (0-0) K/uL Nucleated RBC % (auto) 0.2 % Sodium 132 L (136-145) mmol/L Potassium 3.4 L (3.5-5.1) mmol/L Chloride 95 L (98-107) mmol/L Carbon Dioxide 28 (21-32) mmol/L Anion Gap 9 (3-11) BUN 14 (6-23) mg/dl Creatinine 0.92 (0.6-1.2) mg/dl Est Cr Clr Drug Dosing 72.4 ml/min Est GFR ( Amer) 72.1 ml/min Est GFR (Non-Af Amer) 62.2 ml/min BUN/Creatinine Ratio 15.2 (10-20) Glucose 170 H (70-99(Fasting)) mg/dl POC Glucose 108 H (70-99) mg/dl Calcium 8.2 L (8.5-10.1) mg/dl Phosphorus 2.7 (2.5-4.9) mg/dl Magnesium 1.7 (1.7-2.4) mg/dl 02/13/22 02/13/22 02/12/22 Range/Units 11:07 07:27 20:08 WBC (4.8-10.8) K/ul RBC (3.93-5.22) M/uL Hgb (12.0-16.0) g/dl Hct (34.1-44.9) % MCV (80.0-100.0) fL MCH (25.0-34.0) pg MCHC (32.0-36.0) g/dL RDW Std Deviation (36.4-46.3) fL RDW Coeff of Guillermo (11.5-14.5) % Plt Count (130-400) K/uL MPV (9.4-12.3) fL Absolute Nucleated RBC (0-0) K/uL Nucleated RBC % (auto) % Sodium (136-145) mmol/L Potassium (3.5-5.1) mmol/L Chloride (98-107) mmol/L Carbon Dioxide (21-32) mmol/L Anion Gap (3-11) BUN (6-23) mg/dl Creatinine (0.6-1.2) mg/dl Est Cr Clr Drug Dosing ml/min Est GFR ( Amer) ml/min Est GFR (Non-Af Amer) ml/min BUN/Creatinine Ratio (10-20) Glucose (70-99(Fasting)) mg/dl POC Glucose 194 H 170 H 243 H (70-99) mg/dl Calcium (8.5-10.1) mg/dl Phosphorus (2.5-4.9) mg/dl Magnesium (1.7-2.4) mg/dl
[2022-02-13] MEDS: ERTAPENEM SODIUM 1,000 MG in SYRINGE 0 ML IV SCH (17:25)
[2022-02-13] MEDS: MONTELUKAST SODIUM 10 MG TABLET PO SCH (17:27)
[2022-02-13] MEDS: GABAPENTIN 300 MG CAP PO SCH (18:58)
[2022-02-13] MEDS: ARIPIprazole 1 MG/ML ORAL SOLN 150 ML BTL PO SCH (19:00)
[2022-02-13] MEDS: MoRPHine SULFATE CR 15 MG TABCR PO SCH (20:30)
[2022-02-13] MEDS ORDERED: traZODone HCL 100 MG TAB PO SCH (21:00)
[2022-02-13] MEDS ORDERED: ESTRACE VAG CREAM 0.01% 42.5 GM PV SCH (21:00)
[2022-02-14] MEDS: PANTOprazole 40 MG TAB PO SCH (06:19)
[2022-02-14] MEDS: TORSEMIDE 20 MG TAB PO SCH ×2 (06:19→16:33)
[2022-02-14] MEDS: LEVOTHYROXINE SODIUM 88 MCG TABLET PO SCH (06:19)
[2022-02-14 07:03] LABS: BUN Creatinine Ratio 13.8 (10-20); Calcium 8.2 mg/dl (8.5-10.1); Est GFR (African American) 70.2 ml/min; Est GFR (Non-African American) 60.6 ml/min; Potassium 3.5 mmol/L (3.5-5.1)
[2022-02-14] MEDS: ENOXAPARIN INJ 30 MG/0.3 ML SYR SQ SCH (08:28)
[2022-02-14] MEDS: INSULIN ASPART PER UNIT SC SCH ×2 (08:29→12:14)
[2022-02-14] MEDS: LANTUS PER UNIT CHARGE SQ SCH (08:29)
[2022-02-14] MEDS: METOPROLOL SUCC 50MG EXT REL TAB PO SCH (08:29)
[2022-02-14] MEDS: POTASSIUM CHLORIDE CRTAB 20 MEQ TABCR PO SCH (08:29)
[2022-02-14] MEDS: LACTULOSE SYRUP 30 GM/45 ML UDP PO SCH (08:30)
[2022-02-14] MEDS: lamoTRIgine 25 MG TAB PO SCH (08:30)
[2022-02-14] MEDS: lamoTRIgine 100 MG TAB PO SCH (08:30)
[2022-02-14] MEDS: TAMSULOSIN HCL 0.4 MG CAP PO SCH (08:32)
[2022-02-14] MEDS: OXYBUTYNIN CHLORIDE XL 5 MG TABCR PO SCH (08:33)
[2022-02-14] MEDS: MAGNESIUM OXIDE 400 MG TAB PO SCH (08:33)
[2022-02-14] MEDS: ATORVASTATIN 40 MG TAB PO SCH (08:33)
[2022-02-14] MEDS: ASPIRIN 81 MG ECTAB PO SCH (08:33)
[2022-02-14] MEDS: VENLAFAXINE HCL XR 75 MG CAPXR PO SCH (08:33)
[2022-02-14] MEDS: SPIRONOLACTONE 25 MG TAB PO SCH (08:36)
[2022-02-14] MEDS: GABAPENTIN 300 MG CAP PO SCH (08:36)
[2022-02-14] MEDS: rifAXIMin 550 MG TABLET PO SCH (08:37)
[2022-02-14] MEDS: VENLAFAXINE HCL XR 150 MG CAPXR PO SCH (08:38)
[2022-02-14] MEDS: clonazePAM 0.5 MG TAB PO SCH ×2 (08:42→14:29)
[2022-02-14] MEDS: MoRPHine SULFATE CR 15 MG TABCR PO SCH (08:42)
--- NOTE | 2022-02-14 10:45 | Orthopedic Progress Note ---
Date of Service February 14, 2022 Assessment & Plan (1) S/P hip hemiarthroplasty: Plan: Pt is 9 days s/p a left hemiarthroplasty. Pt's dressing in tact with no drainage. She will continue with hip abduction pillow and hip precautions. WBAT. Continue with PT/OT. Continue with oral pain medication/analgesics as ordered. DVT prophylaxis per primary. Labs remains stable. Patient will be transitions to a SNF center and follow up with Dr Cha outpatient as scheduled. Admission and Anticipated Discharge Date Admission Date: February 05, 2022 Subjective Pt is s/p a Left hemiarthroplasty post op day #9. She is laying in bed, sleeping, able to be aroused for short moments. She states she is having some pain in her left hip. She had her dressing changed yesterday. She has no other concerns or questions today. Physical Exam Physical Exam: General: Pt laying in hospital bed, sleeping upon entering room. Able to be aroused for short moments, frequently dozes off to sleep during exam Lower Extremity: Dressing in tact and not saturated. No drainage noted. No surrounding erythema. Patient slightly tender to palpation left hip. No masses or fluctuance felt. Pt unable to wiggle toes. Lopez boots placed bilaterally. She reports she can feel me touching her toes. Calf supple and non tender. Patient distal extremity warm and pink. Results & Data ([facility]) Vital Signs (Past 12 Hours) Vital Signs Temp Pulse Pulse Resp BP Pulse Ox O2 Del Method 02/14/22 08:00 Room Air 02/14/22 08:20 37.1 C 73 20 110/69 93 Room Air 02/14/22 00:00 76 02/14/22 04:17 36.4 C L 78 18 100/54 L 95 Room Air 02/13/22 23:44 36.6 C 77 16 149/64 H 97 Room Air
--- NOTE | 2022-02-14 13:43 | Discharge Summary ---
Date of Service February 14, 2022 Principal Diagnosis left hip fracture UTI ESBL E coli Discharge Exam CONSTITUTIONAL: WNWD, vitals as above, generally well-appearing, NAD EYES: normal conjunctivae, no scleral icterus ENT: external ear and nose normal, MMM NECK: trachea midline RESPIRATORY: clear to auscultation bilaterally, no crackles, rales or wheezes, normal respiratory effort CARDIOVASCULAR: regular rate and rhythm, S1 and 2 heard without murmurs, gallops or rubs, no JVD, no peripheral edema CHEST: inspection of chest was normal GASTROINTESTINAL: soft, nontender, obese, no guarding MUSCULOSKELETAL: moves upper extremities equally, wound vac in place to LLE, head is normocephalic and atraumatic SKIN: warm and dry, wound vac in place to left hip. NEUROLOGIC: CN 2-12 grossly intact, no sensory deficit in lower extremities, normal cognition, normal speech, no tremor PSYCHIATRIC: easily falling asleep, cooperative and oriented to person, place and time. Euthymic mood, makes good eye contact, language grossly intact, recent and remote memory grossly intact. Discharge Data Allergies Allergy/AdvReac Type Severity Reaction Status Date / Time propoxyphene Allergy Intermediate Rash Verified 02/05/22 03:04 fentanyl AdvReac Intermediate PANIC Verified 02/05/22 03:04 WANTS TO RUN AND AGGRESSIVE methocarbamol AdvReac Intermediate DELERIUM Verified 02/05/22 03:04 zolpidem AdvReac Intermediate confusion Verified 02/05/22 03:04 Consultations 02/05/22 05:23 ED Decision to Admit Stat 02/05/22 05:25 Consult Orthopedic Surgery Routine 02/05/22 09:53 Consult Cardiology Routine 02/07/22 09:11 Consult Nephrology Routine 02/08/22 14:00 Consult Infectious Diseases Routine Procedures Performed Operation Date: 02/05/22 09:20 Actual Procedures p Left Hip Hemiarthroplasty(Left) - Ivan Cha MD Ordered Studies 02/05/22 03:24 CT head/brain wo con Urgent 02/05/22 04:15 CT hip LT wo con Urgent CT pelvis wo con Urgent 02/07/22 12:50 CT hip LT wo con Urgent Hospital Course (1) Hip fracture, left: Secondary to fall and s/p left hemiarthroplasty on 02/[address] Cha History ambulatory dysfunction/Pvdpwyn-Mlwde-Hsigl disease Patient predisposed by lethargy secondary to multiple neuropsychotropic and chronic morphine Hepatic encephalopathy is not currently present as patient is oriented and ammonia level is consistently normal. Noted h/o NAFLD cirrhosis. Has had constipation and continued lactulose. Cont activity per Ortho Cont wound vac-recovering well and planned for [facility] at discharge. DVT prophylaxis (2) Infection due to ESBL-producing Escherichia coli: History ESBL E. coli UTI ongoing Ertapenem Rx Ucultx (01/16) positive for ESBL E. coli, and outpatient record (Epic) Per family, started on ertapenem on Friday (1 week ago) Repeat UA negative Pt cont. to have intermittent fevers Continued ertapenem, added doxycycline blood cultures (01/31) - negative 02/08 - WBC elevated at 16,000, switched ertapenem and Doxy to meropenem plus vancomycin 02/09 WBC down to 12,000 / WBC normalized - 8,600 ID consult - recommend ertapenem monotherapy for total 10 days. (3) Acute blood loss anemia: Acute blood loss anemia post-op vs. dilutional pre-op Hgb 12.1, POD#1 Hb was 8.4 s/p 1 unit of pRBC -on 8/4 H/H remained stable, still anemic, and no active bleeding. Plan Chronic diastolic heart failure (EF 55 to 59%, TTE 09/2021)-euvolemic, stable. hx CAD status post CABG/stent-chronic, stable, no chest pain or active symptoms. Moderate Hypertension, stable Hyperlipidemia, on statin Rx Bipolar disorder/OCD - cont. home medications -Patient becomes suspicious and paranoid on and off while in the hospital Chronic pain dependent on opioid therapy-on multiple medications that interact and contribute to encephalopathy. Recommended stopping trazodone at discharge. DM2 insulin requiring, well-controlled as of recent hemoglobin A1c of 11 December 2021 Basal insulin adjusted for n.p.o. status, ISS BG goal 110-140 Chronic hyponatremia cont. to monitor Hypervolemic hyponatremia, sodium improved after Lasix Resumed torsemide and spironolactone FR 1.2L Nephrology following Sodium was stable at time of discharge. Past history DVT as per records DVT prophylaxis. lovenox (per ortho) x next few weeks post-op. Full code Discharged in stable condition to [facility]. Close primary care follow-up recommended. Total Time Total Time Spent Total Time Spent (In Minutes): 60 Discharge Plan Discharge Items Patient Disposition: Transfer Inpatient Rehab Fac Reason For Visit: L HIP FX, LETHARGY Discharge Diagnosis: left hip fracture; lethargy ESBL E coli UTI Condition on Discharge: Good Activity: Per Instructions section Weightbearing: Left weightbearing Weightbearing Comment: with walker assistance Non-emergency contact: Surgeon Call non-emergency contact if: your pain is not controlled, your temperature is above 101, your wound has increased redness, your wound has increased drainage and your wound pain has increased Follow-up/Referrals: Brian Domínguez MD [Primary Care Provider] - Ivan Cha MD [Surgeon] - 02/19/22 10:30 am Diet: Regular Addtl Attending Provider Instructions: Please take all medications as instructed on discharge list below. Please note that your trazodone has been stopped for the time being as there is an interaction with this and other medications that you take such as morphine and oxycodone. You will be on Lovenox injections twice daily for 4 weeks past your surgery date to protect you from the formation of blood clots. Please follow all post operative orthopedic instructions below and followup with your primary care physician is recommended when you are out of rehab to ensure you are doing well after going home. It was a pleasure taking care of you! Please call if you have any questions or problems. You can reach a [facility] hospitalist on duty at [facility] 24 hours a day by calling [phone]. Take care of yourself. Cristiane Mo DO [facility] Hospitalist Addtl Supervisor Picking [employer] Provider Instructions: "VERY IMPORTANT TO READ AND REVIEW" Pain: * The immediate post-operative period after hip surgery is often quite painful. * You are given a prescription for pain medicine. You should take it, as directed, when you need it, especially before physical therapy and before going to bed. Pain that interferes with sleep is very common and can last several months. * You will likely need pain medicine for the first two to four weeks. It will not stop all of the pain. The pain will lessen and as you feel better, you may change to milder pain medicine such as Tylenol. * The most common side effects of pain medicine are nausea and constipation, so don't take more than you need. DVT prophylaxis: * You will be on Lovenox 30mg SQ every 12 hours for 4 weeks to prevent blood clots * You will need weekly CBC obtained Physical Therapy: * Follow the "Hip Precautions Instructions." * In some cases, the social media sr strategy manager at the hospital will arrange to have a therapist come to your house for the first couple of weeks to help you learn these skills. * You need to practice on your own or with the help of a family member as needed. * When you learn these skills, most of the therapy can be done on your own. Home Exercise: * You were shown a series of exercises in the hospital. Do these exercises three to four times each day including the exercises you were shown in physical therapy. Walking: * Get up and walk several times each day. For the first four weeks, try not to stand or walk for more than one hour at a time. If you do stand or walk for more than one hour, you will not hurt anything, but your leg will likely swell. * As you feel comfortable, you may change from the walker or crutches to a cane and then to independent walking. SELF CARE INSTRUCTIONS AFTER TOTAL HIP REPLACEMENT Until the incision and soft tissues around your hip have healed, there is a pos sibility that the hip prosthesis could dislocate. A. Observe the following precautions to prevent dislocation: 1. Don't bend your hip greater than 90 degrees. 2. Avoid crossing your legs or ankles while standing or lying. 3. Sit with your feet placed 6 inches apart. 4. When sitting, keep your knees below your hips. Sit on a firm surface, avoid deep, soft chairs and couches. Use an elevated toilet seat in the bathroom. 5. Don't bend over at the waist. Use a long handled shoehorn and a sock aid to help you put on your shoes and socks. A site medical director can help you cook pickled meat objects that are too high or too low to reach. 6. Keep car riding to a minimum for at least one month after surgery. B. Your balance may be shaky for a while. Use crutches or a walker until directed by your doctor. C. Use hand rails when walking on stairs. D. Wear low heeled shoes with non-slip soles. E. Be sure that your floors are free of things that could trip you - throw rugs, electrical cords, small objects. Avoid wet and waxed floors, especially with crutches and canes. F. Try to walk several times a day with rest periods between. G. Continue with all the exercises taught to you in the hospital. Again, make walking a part of your daily routine. TEDs/Elastic Stockings: * The white elastic stockings help limit swelling and prevent blood clots from forming in your legs. The more you wear them, the more they work. * Wear them for six weeks. Prevention of Infection: * Take antibiotics one hour before any dental cleaning, dental work, urological procedure, gastrointestinal procedure or any invasive surgery in order to prevent your new joint from getting infected. * You may get the antibiotics from the doctor performing the procedure or we will call in a prescription to the pharmacy of your choice. Call the office for a prescription at least 2 days prior to your appointme nt. Things to Watch For: * Drainage from the incision site that occurs more than one week after your surgery. * Severely increased leg pain or swelling. * Increased redness at the incision site. * Fever above 101 degrees Fahrenheit. * Unusual chest pain or shortness of breath. * Unusual pain or burning with urination. Pending Studies at Discharge: No Stand-Alone Forms: [facility] Skilled Items Patient informed of condition?: Yes DNR: No Discharge Level of Care: Acute rehab Communicable Disease: No Discharge Prognosis: Stable Lines: None Urinary Catheter: No Medications and DC Order Prescriptions: New enoxaparin [Lovenox] 30 mg/0.3 mL Syringe 30 mg subcut Q12H Qty: 3 0RF Rx Instructions: Please continue twice daily x 4 weeks post op. Continued levothyroxine 88 mcg tablet 88 mcg PO QAM Rx Instructions: TAKE THIS MEDICATION 30 MINUTES BEFORE BREAKFAST OR ANY OTHER MEDICATIONS aripiprazole 2 mg tablet 2 mg PO HS nitroglycerin [Nitrostat] 0.4 mg Tablet, Sublingual 0.4 mg Sublingual DIRECTED PRN (Reason: Chest Pain) Rx Instructions: PLACE ONE TABLET UNDER THE TONGUE EVERY 5 MINUTES FOR UP TO 3 TABLETS OVER 15 MINUTES IF NEEDED FOR CHEST PAIN albuterol sulfate [Ventolin HFA] 90 mcg/actuation Hfa Aerosol Inhaler 2 puff INHALATION QID PRN (Reason: Shortness Of Breath Or Wheezing) morphine 15 mg Tablet Extended Release 15 mg PO BID Rx Instructions: take every 12 hours montelukast 10 mg Tablet 10 mg PO DAILY@1600 insulin glargine [Basaglar KwikPen U-100 Insulin] 100 unit/mL (3 mL) Insulin Pen 60 unit SUBCUT QAM spironolactone [Aldactone] 50 mg tablet 50 mg PO BID venlafaxine 75 mg capsule,extended release 24hr 75 mg PO QAM Rx Instructions: Take with the 150mg dose for a total dosage of 225mg Xifaxan 550 mg Tablet 550 mg PO BID aspirin 81 mg Tablet,Delayed Release (Dr/Ec) 81 mg PO QAM pantoprazole 40 mg tablet,delayed release (DR/EC) 40 mg PO DAILYBB Label Comments: BEFORE BREAKFAST oxycodone 5 mg tablet 5 mg PO Q8H PRN (Reason: Breakthrough Pain) ergocalciferol (vitamin D2) 1,250 mcg (50,000 unit) capsule 1,250 mcg PO WK Label Comments: THURSDAYS Rx Instructions: oxybutynin chloride 10 mg tablet extended release 24hr 10 mg PO QAM tamsulosin 0.4 mg capsule 0.4 mg PO QAM estradiol 0.01 % (0.1 mg/gram) cream 1 applic VAGINAL HS Rx Instructions: Periurethral atorvastatin 40 mg tablet 40 mg PO QAM ondansetron HCl 8 mg tablet 8 mg PO Q8H PRN (Reason: Nausea) dicyclomine 10 mg capsule 10 mg PO QID PRN (Reason: Abdominal Pain) torsemide 20 mg tablet 20 - 40 mg PO QAM Rx Instructions: may take additional tablet as needed for swelling (VERIFIED PAT CALL 01/10/22) ascorbic acid (vitamin C) 500 mg Tablet 500 mg PO BID Trulicity 4.5 mg/0.5 mL pen injector 4.5 mg SUBCUT WK Label Comments: MONDAYS Rx Instructions: Friday venlafaxine 150 mg capsule,extended release 24hr 150 mg PO QAM Rx Instructions: Take with the 25mg dose for a total dosage of 225mg gabapentin 300 mg capsule 300 mg PO BID clonazepam 0.5 mg tablet 0.5 mg PO TID lamotrigine 25 mg tablet 75 mg PO QAM Rx Instructions: TOTAL DOSE 175 MG--TAKES WITH 100 MG TAB. lamotrigine 100 mg tablet See Rx Instructions .ROUTE .COMPLEX Rx Instructions: 100 mg orally; TAKES 175 MG QAM--TAKES WITH 3-25 MG TABS. THEN TAKES 150 MG QPM--TAKES 1 1/2 TABS. metoprolol succinate 50 mg tablet extended release 24 hr 50 mg PO QAM lactulose 20 gram/30 mL Solution 30 g PO BID Discontinued trazodone 50 mg tablet 100 mg PO HS methenamine hippurate [Hiprex] 1 gram tablet 1 g PO BID ertapenem 1 gram recon soln 1 g IV DAILY Discharge Orders: Discharge Order (Routine); Ordered 02/14/22 Ordered By: Cristiane Mo Admission Data Admit Date/Time: 02/05/22 06:10 Attending Provider: Cristiane Mo Admit Provider: Justino Velazquez Primary Care Provider: Brian Domínguez Other Providers: Markos Marroquin ; Maxim Hall ; [facility] ; Justino Velazquez ; Ivan Edge ; Leonid Falk ; Nir Trevino ; Indra Tobar ; Hellen De Leon ; Sidney Holley I. ; Emerson Kothari II ; Vidya Palmer ; Tony Mae ; Kendall Bell
[2022-02-14] MEDS: ERTAPENEM SODIUM 1,000 MG in SYRINGE 0 ML IV SCH (14:29)
[2022-02-14] MEDS: MONTELUKAST SODIUM 10 MG TABLET PO SCH (16:33)
== END 2022-02-14 17:55 | DRG 521 ==
LOC: ED 02:55 → SUATTDRO 06:10 → EDINP 06:10 → 2W 18:46 → 2E 02-07 10:29
DX: Z79.82 Long term (current) use of aspirin; I50.33 Acute on chronic diastolic (congestive) heart failure; Z16.12 Extended spectrum beta lactamase (ESBL) resistance; Z95.5 Presence of coronary angioplasty implant and graft; Z20.822 Contact with and (suspected) exposure to COVID-19; Z79.2 Long term (current) use of antibiotics; Z79.890 Hormone replacement therapy; G89.4 Chronic pain syndrome; E11.9 Type 2 diabetes mellitus without complications; I25.10 Atherosclerotic heart disease of native coronary artery without angina pectoris; W19.XXXA Unspecified fall, initial encounter; Z87.440 Personal history of urinary (tract) infections; Z86.14 Personal history of Methicillin resistant Staphylococcus aureus infection; Z86.718 Personal history of other venous thrombosis and embolism; F31.9 Bipolar disorder, unspecified; G60.0 Hereditary motor and sensory neuropathy; I11.0 Hypertensive heart disease with heart failure; I35.0 Nonrheumatic aortic (valve) stenosis; Z79.4 Long term (current) use of insulin; Z79.891 Long term (current) use of opiate analgesic; Z95.1 Presence of aortocoronary bypass graft; D62 Acute posthemorrhagic anemia; B96.20 Unspecified Escherichia coli [E. coli] as the cause of diseases classified elsewhere; R29.6 Repeated falls; R50.9 Fever, unspecified; E87.6 Hypokalemia; E87.1 Hypo-osmolality and hyponatremia; N39.0 Urinary tract infection, site not specified; Y99.8 Other external cause status; Z91.81 History of falling; Y92.039 Unspecified place in apartment as the place of occurrence of the external cause; K75.81 Nonalcoholic steatohepatitis (NASH); E78.5 Hyperlipidemia, unspecified; Z88.5 Allergy status to narcotic agent; Z88.8 Allergy status to other drugs, medicaments and biological substances; F42.9 Obsessive-compulsive disorder, unspecified; R41.0 Disorientation, unspecified; S72.012A Unspecified intracapsular fracture of left femur, initial encounter for closed fracture; K74.69 Other cirrhosis of liver

== ENCOUNTER 2022-02-18 22:31 | Inpatient (IN) ==
[2022-02-18 22:55] LABS: Basophils # (auto) 0.04 K/uL (0-0.2); Basophils % (auto) 0.6 %; Eosinophils # (auto) 0.46 K/uL (0-0.50); Eosinophils % (auto) 6.3 %; Hematocrit (blood only) 26.9 % (34.1-44.9); Hemoglobin 8.2 g/dl (12.0-16.0); Immature Granulocytes # (auto) 0.16 K/uL (0.00-0.02); Immature Granulocytes % (auto) 2.2 %; Lymphocytes # (auto) 1.43 K/uL (1.2-3.4); Lymphocytes % (auto) 19.7 %; Mean Corpuscular Hemoglobin 24.5 pg (25.0-34.0); Mean Corpuscular Hgb Conc 30.5 g/dL (32.0-36.0); Mean Corpuscular Volume 80.3 fL (80.0-100.0); Mean Platelet Volume 10.2 fL (9.4-12.3); Monocytes # (auto) 0.64 K/uL (0.24-0.82); Monocytes % (auto) 8.8 %; Neutrophils # (auto) 4.52 K/uL (1.4-6.5); Neutrophils % (auto) 62.4 %; Platelet Count 281 K/uL (130-400); RDW Coefficient of Variation 19.3 % (11.5-14.5); Red Blood Count 3.35 M/uL (3.93-5.22); White Blood Count 7.25 K/ul (4.8-10.8)
[2022-02-18 23:07] LABS: Appearance Urine Clear (Clear); Bacteria Urine Automated Negative (Negative); Bilirubin Urine Negative (Negative); Blood Urine Negative (Negative); Color Urine Yellow; Epithelial Cell Urine Auto >30 /lpf (0-5); Glucose Urine UA Negative (Negative); Ketones Urine Negative (Negative); Leukocyte Esterase Urine 1+ (Negative); Nitrite Urine Negative (Negative); Protein Urine Negative (Negative); Specific Gravity Urine 1.013 (1.000-1.030); Urobilinogen Urine Positive (Negative)
[2022-02-18 23:20] LABS: Renal Epithelial Cells Urine 0-5 /lpf (0-5)
[2022-02-18 23:22] LABS: Troponin I High Sensitivity 18.3 pg/ml (0-14)
[2022-02-18 23:29] LABS: Thyroid Stimulating Hormone 5.394 uIu/ml (0.300-4.500)
[2022-02-18 23:36] LABS: Alanine Aminotransferase 13 U/L (7-52); Albumin Globulin Ratio 0.8 (0.9-2); Albumin Level 2.8 gm/dl (3.4-5.0); Alkaline Phosphatase 157 U/L (34-104); Anion Gap 7 (3-11); Aspartate Aminotransferase 31 U/L (13-39); BUN Creatinine Ratio 11.7 (10-20); Bilirubin,Total 1.6 mg/dl (0.2-1.0); Blood Urea Nitrogen 13 mg/dl (6-23); Calcium 8.6 mg/dl (8.5-10.1); Carbon Dioxide 29 mmol/L (21-32); Chloride 98 mmol/L (98-107); Est GFR (African American) 57.5 ml/min; Est GFR (Non-African American) 49.6 ml/min; Globulin 3.4 gm/dl (2.5-4.0); Glucose 119 mg/dl (70-99(Fasting)); Magnesium 2.4 mg/dl (1.7-2.4); Potassium 3.8 mmol/L (3.5-5.1); Sodium 134 mmol/L (136-145); Total Protein 6.2 gm/dl (6.0-8.3)
--- NOTE | 2022-02-18 23:49 | Emergency Department Note ---
History of Present Illness General Chief complaint: Altered Mental Status Time Seen by Provider: 02/18/22 22:33 History of Present Illness Maximum Pain Intensity: 5 This 71-year-old from the long-term presents to the ER complaining of increased confusion per long-term tonight Location: Generalized Quality: Weak Severity: moderate Duration: Today Timing: Today Context: detention was concerned and sent patient in Modifying factors: better with rest; worse with nothing Patient states she has generalized weakness. Patient denies chest pain, dyspnea, abdominal pain, fever, chills, flulike illness. Patient was just discharged for hip fracture and has a Gallagher in place. Home Medications Medication Instructions Recorded Confirmed Type albuterol sulfate 90 mcg/actuation 2 puff inhalation QID PRN 04/27/18 02/05/22 History aerosol inhaler (Ventolin HFA) Shortness Of Breath Or Wheezing aripiprazole 2 mg tablet 2 mg PO HS 04/27/18 02/05/22 History levothyroxine 88 mcg tablet 88 mcg PO QAM 04/27/18 02/05/22 History nitroglycerin 0.4 mg sublingual 0.4 mg sublingual DIRECTED PRN 04/27/18 02/05/22 History tablet (Nitrostat) Chest Pain montelukast 10 mg tablet 10 mg PO DAILY@1600 06/11/19 02/05/22 History spironolactone 50 mg tablet 50 mg PO BID 09/15/19 02/05/22 History (Aldactone) venlafaxine 75 mg capsule,extended 75 mg PO QAM 09/15/19 02/05/22 History release 24 hr insulin glargine 100 unit/mL (3 60 unit subcut QAM 12/22/19 02/05/22 History mL) subcutaneous pen (Basaglar KwikPen U-100 Insulin) morphine 15 mg tablet,extended 15 mg PO BID 01/16/20 02/05/22 History release rifaximin 550 mg tablet (Xifaxan) 550 mg PO BID 03/21/20 02/05/22 History venlafaxine 150 mg 150 mg PO QAM 01/07/21 02/05/22 History capsule,extended release 24 hr aspirin 81 mg tablet,delayed 81 mg PO QAM 01/26/21 02/05/22 History release oxycodone 5 mg tablet 5 mg PO Q8H PRN Breakthrough Pain 01/26/21 02/05/22 History pantoprazole 40 mg tablet,delayed 40 mg PO DAILYBB 01/26/21 02/05/22 History release gabapentin 300 mg capsule 300 mg PO BID 02/26/21 02/05/22 History clonazepam 0.5 mg tablet 0.5 mg PO TID 03/23/21 02/05/22 History atorvastatin 40 mg tablet 40 mg PO QAM 10/10/21 02/05/22 History dicyclomine 10 mg capsule 10 mg PO QID PRN Abdominal Pain 10/10/21 02/05/22 History ergocalciferol (vitamin D2) 1,250 1,250 mcg PO WK 10/10/21 02/05/22 History mcg (50,000 unit) capsule estradiol 0.01% (0.1 mg/gram) 1 applic vaginal HS 10/10/21 02/05/22 History vaginal cream ondansetron HCl 8 mg tablet 8 mg PO Q8H PRN Nausea 10/10/21 02/05/22 History oxybutynin chloride 10 mg 10 mg PO QAM 10/10/21 02/05/22 History tablet,extended release 24 hr tamsulosin 0.4 mg capsule 0.4 mg PO QAM 10/10/21 02/05/22 History torsemide 20 mg tablet 20 - 40 mg PO QAM 10/10/21 02/05/22 History lamotrigine 100 mg tablet See Rx Instructions .Route .COMPLEX 11/23/21 02/05/22 History lamotrigine 25 mg tablet 75 mg PO QAM 11/23/21 02/05/22 History ascorbic acid (vitamin C) 500 mg 500 mg PO BID 12/07/21 02/05/22 History tablet dulaglutide 4.5 mg/0.5 mL 4.5 mg subcut WK 12/07/21 02/05/22 History subcutaneous pen injector (Trulicity) lactulose 20 gram/30 mL oral 30 g PO BID 12/12/21 02/05/22 History solution metoprolol succinate 50 mg 50 mg PO QAM 12/12/21 02/05/22 History tablet,extended release 24 hr enoxaparin 30 mg/0.3 mL 30 mg (0.3 mL) subcut Q12H #3 mL 02/14/22 Rx subcutaneous syringe (Lovenox) Allergies Allergy/AdvReac Type Severity Reaction Status Date / Time propoxyphene Allergy Intermediate Rash Verified 02/05/22 03:04 fentanyl AdvReac Intermediate PANIC Verified 02/05/22 03:04 WANTS TO RUN AND AGGRESSIVE methocarbamol AdvReac Intermediate DELERIUM Verified 02/05/22 03:04 zolpidem AdvReac Intermediate confusion Verified 02/05/22 03:04 Past Med/Surg History Medical History Anxiety Bipolar disorder CAD (coronary artery disease) History of multiple PCI's to the RCA with subsequent CABG x1 in 2010 x 1 vessel Most recent cardiac testing-negative DSE in December 2017 Follows w/ Dr. Blackwell and Dr. Lucas [id number]-Rmfgh disease follows w/ Dr. Lemus LEG WEAKNESS CURRENT PT/OT FOR - BRACES B/L LEGS Chronic diastolic CHF (congestive heart failure) Chronic pain syndrome Depression DM type 2 (diabetes mellitus, type 2) IDDM Dyslipidemia Encephalopathy d/c from [facility] 09/20/19 (hepatic encephalopathy) Gastroparesis GERD (gastroesophageal reflux disease) History of anesthesia reaction REMOTE HX, SIDE EFFECTS : ANXIETY AND SEVERE N/V History of COVID-19 6-8 MON AGO Hypertension Hypothyroidism Irregular heart beat follows Dr. 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 Moderate aortic stenosis GONZALEZ (nonalcoholic steatohepatitis) Osteoarthritis Portal hypertensive gastropathy SOB (shortness of breath) SINCE COVID 19/ 6-8 MON AGO, SOB, COUGH...NO DX...HAS VISIT WITH PULM UPCOMING TO EVALUATE Spondylosis Urinary incontinence UTI (urinary tract infection) FREQUENT/PREVENTATIVE ABX'S CURRENTLY MOST RECENT UTI JANUARY 04 - ABX COMPLETE - ON CURRENT PROPHYLACTIC TX Surgical History History of appendectomy History of back surgery sacral area History of cardiac cath multiple - most recent - 2 years ago @ [facility] History of cataract surgery RT History of colonoscopy History of esophagogastroduodenoscopy (EGD) History of heart artery stent 2 yrs ago @ [facility] > unsure of how many stents > follows Dr. Lucas History of total right knee replacement Hx of cholecystectomy S/P CABG x 1 2010 - single vessel S/P CARLOS (total abdominal hysterectomy) Family History Father Coronary heart disease Brother Coronary heart disease Father No problems noted. Mother No problems noted. Social History Smoking Status: Never smoker Second Hand Exposure: Yes (DAUGHTER SMOKES); Hx Alcohol Use: No Hx Substance Use: No Preferred Language: Filipino Communication Ability: Impaired Bundle Collector Required: No Beliefs That Will Affect Care: None marital status: / Current Living Situation: Alone How many Children do You have: 0 Feels Safe at Home: Yes Assistive Devices: Bedside Commode, Hospital Bed, Walker and Wheelchair Review of Systems A total of 10 systems reviewed and were otherwise negative Physical Exam Vital Signs Vital Signs - 24 hr 02/18/22 22:47 02/18/22 22:56 02/19/22 00:00 Temperature 37 C Temperature Source Oral Pulse Rate 93 H Pulse Rate [Apical] 67 65 Pulse Rhythm Regular Pulse Rhythm [Apical] Regular Pulse Strength Normal Respiratory Rate 20 16 18 Respiratory Effort / Characteristics Non-Labored Spontaneous Respiratory Depth Normal Respiratory Pattern Regular Blood Pressure 102/52 L Blood Pressure [Left Arm] 102/52 L 106/65 Blood Pressure Mean 68 Blood Pressure Mean [Left Arm] 68 78 Blood Pressure Position Lying Pulse Oximetry 92 95 95 Oxygen Delivery Method Room Air Room Air Sepsis Recent Fever Within 48 Hours No Sepsis New/Unexplained Change in Mental Status N/A Sepsis Action Taken by Nursing No Action Required VITALS: Vitals are noted on the nurse's note and reviewed by myself. Vital signs stable. GENERAL: Pleasant elderly female slow to respond but does follow commands, in no acute distress, nondiaphoretic, well-developed well-nourished. SKIN: The skin was without rashes, erythema, edema, or bruising. There is no tenting of the skin. Capillary reflex less than 2 seconds. HEAD: Normocephalic atraumatic. EARS: External auditory canals clear, EYES: Pupils equal round and reactive to light and accommodation. Conjunctivae without injection, sclerae without icterus. Extraocular movements intact. NOSE: Patent, turbinates without inflammation or discharge. MOUTH: Mucous membranes moist. Pharynx without erythema or exudate. Uvula midline. Airway patent. Tongue does not deviate. NECK: Supple without nuchal rigidity. No lymphadenopathy. No thyromegaly. Cervical spine is nontender. No JVD. HEART: Regular rate and rhythm LUNGS: Clear to auscultation bilaterally without wheezes, rales or rhonchi. No retractions or accessory muscle use. ABDOMEN: Positive bowel sounds x 4. Normal tympanic percussion. Soft, nontender, without masses or organomegaly. Stevens sign negative. No guarding or rebound tenderness. No CVA tenderness MUSCULOSKELETAL: No muscle atrophy noted. NEURO: Patient was alert and oriented to person place and time. Normal sensation to light and sharp touch. No focal neurological deficits. Medical Decision Making Medical Records Attestation: I reviewed the patient's medical records. Home Medications Current Medication List: was personally reviewed by me Laboratory Data Attestation: I reviewed the patient's lab results. Result diagrams: 02/18/22 22:30 02/18/22 22:30 Lab Results 02/18/22 02/18/22 02/18/22 Range/Units 22:30 22:30 22:30 WBC 7.25 (4.8-10.8) K/ul RBC 3.35 L (3.93-5.22) M/uL Hgb 8.2 L (12.0-16.0) g/dl Hct 26.9 L (34.1-44.9) % MCV 80.3 (80.0-100.0) fL MCH 24.5 L (25.0-34.0) pg MCHC 30.5 L (32.0-36.0) g/dL RDW Std Deviation 54.0 H (36.4-46.3) fL RDW Coeff of Guillermo 19.3 H (11.5-14.5) % Plt Count 281 (130-400) K/uL MPV 10.2 (9.4-12.3) fL Immature Gran % (Auto) 2.2 % Neut % (Auto) 62.4 % Lymph % (Auto) 19.7 % Glascock % (Auto) 8.8 % Eos % (Auto) 6.3 % Baso % (Auto) 0.6 % Neut # (Auto) 4.52 (1.4-6.5) K/uL Lymph # (Auto) 1.43 (1.2-3.4) K/uL Glascock # (Auto) 0.64 (0.24-0.82) K/uL Eos # (Auto) 0.46 (0-0.50) K/uL Baso # (Auto) 0.04 (0-0.2) K/uL Immature Gran # (Auto) 0.16 H (0.00-0.02) K/uL Sodium 134 L (136-145) mmol/L Potassium 3.8 (3.5-5.1) mmol/L Chloride 98 (98-107) mmol/L Carbon Dioxide 29 (21-32) mmol/L Anion Gap 7 (3-11) BUN 13 (6-23) mg/dl Creatinine 1.11 (0.6-1.2) mg/dl Est Cr Clr Drug Dosing Not Reportable Est GFR ( Amer) 57.5 ml/min Est GFR (Non-Af Amer) 49.6 ml/min BUN/Creatinine Ratio 11.7 (10-20) Glucose 119 H (70-99(Fasting)) mg/dl POC Glucose (70-99) mg/dl Calcium 8.6 (8.5-10.1) mg/dl Magnesium 2.4 (1.7-2.4) mg/dl Total Bilirubin 1.6 H (0.2-1.0) mg/dl AST 31 (13-39) U/L ALT 13 (7-52) U/L Alkaline Phosphatase 157 H (34-104) U/L Ammonia (18-72) umol/L Troponin I High Sens 18.3 H D (0-14) pg/ml Total Protein 6.2 (6.0-8.3) gm/dl Albumin 2.8 L (3.4-5.0) gm/dl Globulin 3.4 (2.5-4.0) gm/dl Albumin/Globulin Ratio 0.8 L (0.9-2) TSH 5.394 H (0.300-4.500) uIu/ml Free T4 1.18 (0.61-1.60) ng/dl Urine Color Urine Appearance (Clear) Urine pH (4.5-7.5) Ur Specific [place] (1.000-1.030) Urine Protein (Negative) Urine Glucose (UA) (Negative) Urine Ketones (Negative) Urine Blood (Negative) Urine Nitrite (Negative) Urine Bilirubin (Negative) Urine Urobilinogen (Negative) Ur Leukocyte Esterase (Negative) Urine WBC (Auto) (0-5) /hpf Urine RBC (Auto) (0-4) /hpf U Hyaline Cast (Auto) (0-5) /lpf U Epithel Cells (Auto) (0-5) /lpf Urine Bacteria (Auto) (Negative) Ur Renal Epithelial Cell (0-5) /lpf Urine Yeast (None Prsent) SARS-CoV-2 (PCR) (Negative) 02/18/22 02/18/22 02/18/22 Range/Units 22:50 22:55 23:41 WBC (4.8-10.8) K/ul RBC (3.93-5.22) M/uL Hgb (12.0-16.0) g/dl Hct (34.1-44.9) % MCV (80.0-100.0) fL MCH (25.0-34.0) pg MCHC (32.0-36.0) g/dL RDW Std Deviation (36.4-46.3) fL RDW Coeff of Guillermo (11.5-14.5) % Plt Count (130-400) K/uL MPV (9.4-12.3) fL Immature Gran % (Auto) % Neut % (Auto) % Lymph % (Auto) % Glascock % (Auto) % Eos % (Auto) % Baso % (Auto) % Neut # (Auto) (1.4-6.5) K/uL Lymph # (Auto) (1.2-3.4) K/uL Glascock # (Auto) (0.24-0.82) K/uL Eos # (Auto) (0-0.50) K/uL Baso # (Auto) (0-0.2) K/uL Immature Gran # (Auto) (0.00-0.02) K/uL Sodium (136-145) mmol/L Potassium (3.5-5.1) mmol/L Chloride (98-107) mmol/L Carbon Dioxide (21-32) mmol/L Anion Gap (3-11) BUN (6-23) mg/dl Creatinine (0.6-1.2) mg/dl Est Cr Clr Drug Dosing Est GFR ( Amer) ml/min Est GFR (Non-Af Amer) ml/min BUN/Creatinine Ratio (10-20) Glucose (70-99(Fasting)) mg/dl POC Glucose (70-99) mg/dl Calcium (8.5-10.1) mg/dl Magnesium (1.7-2.4) mg/dl Total Bilirubin (0.2-1.0) mg/dl AST (13-39) U/L ALT (7-52) U/L Alkaline Phosphatase (34-104) U/L Ammonia 24.0 (18-72) umol/L Troponin I High Sens (0-14) pg/ml Total Protein (6.0-8.3) gm/dl Albumin (3.4-5.0) gm/dl Globulin (2.5-4.0) gm/dl Albumin/Globulin Ratio (0.9-2) TSH (0.300-4.500) uIu/ml Free T4 (0.61-1.60) ng/dl Urine Color Yellow Urine Appearance Clear (Clear) Urine pH 6.0 (4.5-7.5) Ur Specific [place] 1.013 (1.000-1.030) Urine Protein Negative (Negative) Urine Glucose (UA) Negative (Negative) Urine Ketones Negative (Negative) Urine Blood Negative (Negative) Urine Nitrite Negative (Negative) Urine Bilirubin Negative (Negative) Urine Urobilinogen Positive H (Negative) Ur Leukocyte Esterase 1+ H (Negative) Urine WBC (Auto) 10-30 H (0-5) /hpf Urine RBC (Auto) 5-10 H (0-4) /hpf U Hyaline Cast (Auto) 10-30 H (0-5) /lpf U Epithel Cells (Auto) >30 H (0-5) /lpf Urine Bacteria (Auto) Negative (Negative) Ur Renal Epithelial Cell 0-5 (0-5) /lpf Urine Yeast Present A (None Prsent) SARS-CoV-2 (PCR) NEGATIVE (Negative) 02/18/22 Range/Units 23:50 WBC (4.8-10.8) K/ul RBC (3.93-5.22) M/uL Hgb (12.0-16.0) g/dl Hct (34.1-44.9) % MCV (80.0-100.0) fL MCH (25.0-34.0) pg MCHC (32.0-36.0) g/dL RDW Std Deviation (36.4-46.3) fL RDW Coeff of Guillermo (11.5-14.5) % Plt Count (130-400) K/uL MPV (9.4-12.3) fL Immature Gran % (Auto) % Neut % (Auto) % Lymph % (Auto) % Glascock % (Auto) % Eos % (Auto) % Baso % (Auto) % Neut # (Auto) (1.4-6.5) K/uL Lymph # (Auto) (1.2-3.4) K/uL Glascock # (Auto) (0.24-0.82) K/uL Eos # (Auto) (0-0.50) K/uL Baso # (Auto) (0-0.2) K/uL Immature Gran # (Auto) (0.00-0.02) K/uL Sodium (136-145) mmol/L Potassium (3.5-5.1) mmol/L Chloride (98-107) mmol/L Carbon Dioxide (21-32) mmol/L Anion Gap (3-11) BUN (6-23) mg/dl Creatinine (0.6-1.2) mg/dl Est Cr Clr Drug Dosing Est GFR ( Amer) ml/min Est GFR (Non-Af Amer) ml/min BUN/Creatinine Ratio (10-20) Glucose (70-99(Fasting)) mg/dl POC Glucose 142 H (70-99) mg/dl Calcium (8.5-10.1) mg/dl Magnesium (1.7-2.4) mg/dl Total Bilirubin (0.2-1.0) mg/dl AST (13-39) U/L ALT (7-52) U/L Alkaline Phosphatase (34-104) U/L Ammonia (18-72) umol/L Troponin I High Sens (0-14) pg/ml Total Protein (6.0-8.3) gm/dl Albumin (3.4-5.0) gm/dl Globulin (2.5-4.0) gm/dl Albumin/Globulin Ratio (0.9-2) TSH (0.300-4.500) uIu/ml Free T4 (0.61-1.60) ng/dl Urine Color Urine Appearance (Clear) Urine pH (4.5-7.5) Ur Specific [place] (1.000-1.030) Urine Protein (Negative) Urine Glucose (UA) (Negative) Urine Ketones (Negative) Urine Blood (Negative) Urine Nitrite (Negative) Urine Bilirubin (Negative) Urine Urobilinogen (Negative) Ur Leukocyte Esterase (Negative) Urine WBC (Auto) (0-5) /hpf Urine RBC (Auto) (0-4) /hpf U Hyaline Cast (Auto) (0-5) /lpf U Epithel Cells (Auto) (0-5) /lpf Urine Bacteria (Auto) (Negative) Ur Renal Epithelial Cell (0-5) /lpf Urine Yeast (None Prsent) SARS-CoV-2 (PCR) (Negative) Imaging Data Attestation: I personally reviewed and interpreted this imaging study as follows: MDM Narrative Prior records/ancillary studies reviewed and summarized above. Nursing notes reviewed. Additional history obtained from EMS. The patient's history was concerning for increased weakness and possible confusion. Differential diagnosis: Etiologies such as metabolic, infection, hypo/hyperglycemia, electrolyte abnormalities, cardiac sources, intracerebral event, toxicologic, neurologic, as well as others were entertained. Physical examination: As above. ER treatment provided: IV Lock An order was placed for continuous cardiac monitoring. The monitor shows a rate of 60-100 with a sinus rhythm. Meropenem On reassessment the patient felt better. Diagnostics interpretation by me: ECG: Ordered for weakness EKG: Poor baseline, normal sinus, left axis, Q waves in the inferior leads, rate of 67. Impression normal sinus rhythm left axis with Q waves in inferior leads interpreted by myself I think arrhythmia is unlikely. EKG shows normal sinus rhythm with no interval abnormalities such as QT prolongation or WPW. There are no findings to suggest Brugada syndrome. Cardiac monitoring in the emergency department reveals no tachycardic or bradycardic dysrhythmia. Hypertrophic cardiomyopathy was c onsidered but there are no clear historical elements pointing toward this. EKG is not suggestive. The QRS voltage is not extremely large The labs revealed elevated troponin. Stable anemia Urine concerning for infection and sent for culture. Prior culture reviewed. Imaging studies: Chest x-ray with cardiomegaly without overt consolidation pneumothorax or free air per my interpretation Consultation: A consultation was placed with the hospitalist. The case was discussed and diagnostics were reviewed. The patient was evaluated in the ER for further treatment. Exam and history seem consistent with increased weakness with a positive troponin. Urine concerning for possible infection. Sent for culture. Patient will be evaluated for admission. By the evaluation outlined above emergent etiologies such as electrolyte abnormalities, intracerebral event, toxologic, neurologic, abnormalities blood glucose, metabolic, as well as others were deemed relatively unlikely. The pt informed about the findings as listed above. All questions were answered and pleased with the treatment. The chart was completed utilizing [employer] Speech voice recognition software. Grammatical errors, random word insertions, pronoun errors, and incomplete sentences are an occassional consequence of this system due to software limitations, ambient noise, and hardware issues. Any formal questions or concerns about the content, text, or information contained within the body of this dictation should be directly addressed to the physician assistant to the president for clarification. Attending Attestation: I David Metz MD independently saw and evaluated this patient and agree with history and physical is otherwise documented by the physician assistant to the president. See their note for full details. Patient with some weakness currently at rehab after hospitalization with hip fracture. She is resting in bed complaining of some hip pain in no respiratory distress requesting some water and is a little bit slow to respond. No ammonia elevation on blood work. Does have current treatment for ESBL UTI and question if this may still be an infectious source although she does not appear meningitic. Does not appear to be septic at this point. Expanded coverage with meropenem and will bring in for further observation and care at this point. Impression & Plan Acute UTI, Weakness, Elevated troponin Discharge Plan Visit Data Chief Complaint: Altered Mental Status ED Provider: David Metz ED Midlevel Provider: Bell Mccullough Discharge Problem: Acute UTI, Weakness, Elevated troponin Patient Disposition: Admitted As Inpatient Condition: Fair
[2022-02-19 00:09] LABS: T4 Free Thyroxine 1.18 ng/dl (0.61-1.60)
[2022-02-19] MEDS ORDERED: MEROPENEM 500 MG in SYRINGE 0 ML IV STA (00:27)
[2022-02-19] MEDS ORDERED: ALBUMIN 25% 100 mL 25 GM/100 ML VIAL IV ONE (00:53)
[2022-02-19] MEDS ORDERED: DEXTROSE 50% 50 ML SYRINGE IV PRN (01:06)
[2022-02-19] MEDS ORDERED: GLUCAGON FOR INJ 1 MG VIAL SQ PRN (01:06)
[2022-02-19] MEDS ORDERED: CARBOHYDRATES FOR HYPOGLYCEMIA PO PRN (01:06)
[2022-02-19] MEDS ORDERED: GLUCOSE 40% GEL 15 GM TUBE PO PRN (01:06)
[2022-02-19] MEDS ORDERED: PROMETHAZINE HCL 12.5 MG in SODIUM CHLORIDE 0.9% 50 ML IV PRN (01:06)
[2022-02-19] MEDS ORDERED: GLUCOSE 10 TAB/TUBE PO PRN (01:06)
--- NOTE | 2022-02-19 01:20 | History & Physical Report ---
Date of Service February 19, 2022 Assessment & Plan (1) Encephalopathy: Plan: Recurrent UTIs Polypharmacy (patient on multiple neuropsychotropic and narcotic medications.) Troponin elevation secondary to illness chronic diastolic heart failure (EF 55 to 59%, TTE 09/2021), patient on the dry side hx CAD status post CABG/stent Moderate hypertension, stable hyperlipidemia, on statin Rx bipolar disorder/OCD, at baseline DM2 insulin requiring, well-controlled as of recent hemoglobin A1c of 11 December 2021 History ambulatory dysfunction/Hcbjhgw-Zwhpf-Xrime disease chronic hyponatremia Postop anemia, hemoglobin stable at 8 history ESBL E. coli UTI ongoing Ertapenem Rx past history DVT as per records Medical telemetry Urine CS, Meropenem for now Appropriate to hold narcotics/neuropsychotropic meds for now. Need to review above meds given patient propensity/recurrent admissions for encephalopathy. Follow troponin Hold home diuretic until patient awake and able to eat. Basal insulin, ISS BG goal 1 10-1 40, carb count coverage DVT prophylaxis. Lovenox as per postop orthopedic orders. Full code as per patient's prior directives. Text document was generated using [employer] voice recognition software. It may contain grammatical or spelling errors. Kindly contact undersigned for clarification of any documentation item in question. Admission and Anticipated Discharge Date Admission Date: February 19, 2022 History of Present Illness Chief Complaint: Confusion as per records Primary Care Provider: Brian Domínguez MD History obtained from patient and records. Limited history from patient secondary disorientation. Medical history significant for chronic diastolic heart failure (EF 55 to 59%, TTE 09/2021),CAD status post CABG/stent, moderate , hypertension, hyperlipidemia, bipolar disorder/OCD, DM2 insulin requiring, chronic pain on narcotics, Vvyqata-Jlpfh-Zjain disorder, cirrhosis secondary to NAFLD, chronic hyponatremia, history of MRSA/VRE, history ESBL E. coli UTI ongoing ertapenem Rx, history DVT as per records, left hip fracture status post recent surgery, postop anemia (baseline hemoglobin of 8) Last confinement February 05 to 2021 for traumatic left hip fracture status post surgery. Patient also completed antibiotic course for ESBL E. coli UTI initiated outpatient prior to injury. Patient discharged to [facility] facility. Patient noted to be confused at rehab facility last night. Patient denies chest pain, shortness of breath. Admits to generalized weakness. No abdominal pain, no dysuria complaints. No headache. Patient brought to the ER for evaluation. Meropenem administered for UTI. MEDICAL HISTORY: As above. SURGERIES: CABG, cholecystectomy, appendectomy, back surgery, hysterectomy, knee surgery, CARLOS, left hip fracture surgery FAMILY HISTORY: Family history of heart disease, alcoholism PERSONAL AND SOCIAL HISTORY: Nonsmoker, no chronic intake of alcoholic beverages, disabled. Allergies Allergy/AdvReac Type Severity Reaction Status Date / Time propoxyphene Allergy Intermediate Rash Verified 02/19/22 02:20 fentanyl AdvReac Intermediate PANIC Verified 02/19/22 02:20 WANTS TO RUN AND AGGRESSIVE methocarbamol AdvReac Intermediate DELERIUM Verified 02/19/22 02:20 zolpidem AdvReac Intermediate confusion Verified 02/19/22 02:20 Home Medications Medication Instructions Recorded Confirmed Type Lactulose 30g=45ml 45 ml PO BID 02/19/22 02/19/22 History acetaminophen 325 mg tablet 650 mg PO Q4 PRN .PAIN 1-3 02/19/22 02/19/22 History (Tylenol) albuterol sulfate 90 mcg/actuation 2 puff inhalation QID PRN .wheezing 02/19/22 02/19/22 History aerosol inhaler aripiprazole 2 mg tablet 2 mg PO HS 02/19/22 02/19/22 History ascorbic acid (vitamin C) 500 mg 500 mg PO BID 02/19/22 02/19/22 History tablet (Vitamin C) aspirin 81 mg tablet,delayed 81 mg PO DAILY 02/19/22 02/19/22 History release atorvastatin 40 mg tablet 40 mg PO DAILY 02/19/22 02/19/22 History clonazepam 0.5 mg tablet 0.5 mg PO Q8 02/19/22 02/19/22 History dicyclomine 20 mg tablet 10 mg PO QID PRN .IRRITABLE BOWEL 02/19/22 02/19/22 History docusate sodium 100 mg capsule 100 mg PO BID 02/19/22 02/19/22 History dulaglutide 4.5 mg/0.5 mL 4.5 mg subcut WK 02/19/22 02/19/22 History subcutaneous pen injector (Trulicity) enoxaparin 30 mg/0.3 mL 30 mg subcut Q12H 02/19/22 02/19/22 History subcutaneous syringe ergocalciferol (vitamin D2) 1,250 1,250 mcg PO .QTHUR 02/19/22 02/19/22 History mcg (50,000 unit) capsule (Vitamin D2) estradiol 0.01% (0.1 mg/gram) 1 g vaginal HS 02/19/22 02/19/22 History vaginal cream (Estrace) gabapentin 300 mg capsule 300 mg PO BID 02/19/22 02/19/22 History insulin glargine 100 unit/mL 10 unit subcut Q12 02/19/22 02/19/22 History subcutaneous solution insulin regular human 100 unit/mL 1 sliding scale dose subcut ACHS 02/19/22 02/19/22 History injection solution (Humulin R Regular U-100 Insulin) lamotrigine 100 mg tablet 100 mg PO QAM 02/19/22 02/19/22 History (Lamictal) lamotrigine 25 mg tablet 75 mg PO QAM 02/19/22 02/19/22 History levothyroxine 88 mcg tablet 88 mcg PO DAILY 02/19/22 02/19/22 History levothyroxine 88 mcg tablet 88 mcg PO QAM 02/19/22 02/19/22 History magnesium hydroxide 400 mg/5 mL 30 ml PO DAILY PRN Constipation 02/19/22 02/19/22 History oral suspension (Milk of Magnesia) metoprolol succinate 25 mg 25 mg PO DAILY 02/19/22 02/19/22 History tablet,extended release 24 hr montelukast 10 mg tablet 10 mg PO DAILY 02/19/22 02/19/22 History morphine 15 mg tablet,extended 15 mg PO Q12 02/19/22 02/19/22 History release oxybutynin chloride 5 mg 10 mg PO DAILY 02/19/22 02/19/22 History tablet,extended release 24 hr oxycodone 5 mg tablet 5 mg PO Q8 PRN Pain 02/19/22 02/19/22 History pantoprazole 40 mg tablet,delayed 40 mg PO QAM 02/19/22 02/19/22 History release rifaximin 550 mg tablet (Xifaxan) 550 mg PO BID 02/19/22 02/19/22 History sennosides 8.6 mg-docusate sodium 1 tab-cap PO DAILY PRN Constipation 02/19/22 02/19/22 History 50 mg tablet (Senokot-S) sodium chloride 0.9 % (flush) 5 ml IV Q8H 02/19/22 02/19/22 History (Normal Saline Flush 0.9 % injection syringe) spironolactone 25 mg tablet 25 mg PO BID 02/19/22 02/19/22 History (Aldactone) tamsulosin 0.4 mg capsule 0.4 mg PO DAILY 02/19/22 02/19/22 History torsemide 20 mg tablet 20 mg PO BID 02/19/22 02/19/22 History venlafaxine 75 mg capsule,extended 225 mg PO DAILY 02/19/22 02/19/22 History release 24 hr Past Med/Surg History Medical History Anxiety Bipolar disorder CAD (coronary artery disease) History of multiple PCI's to the RCA with subsequent CABG x1 in 2010 x 1 vessel Most recent cardiac testing-negative DSE in December 2017 Follows w/ Dr. Blackwell and Dr. Lucas Lulhdao-Zejaq-Onewj disease follows w/ Dr. Lemus LEG WEAKNESS CURRENT PT/OT FOR - BRACES B/L LEGS Chronic diastolic CHF (congestive heart failure) Chronic pain syndrome Depression DM type 2 (diabetes mellitus, type 2) IDDM Dyslipidemia Encephalopathy d/c from [facility] 09/20/19 (hepatic encephalopathy) Gastroparesis GERD (gastroesophageal reflux disease) History of anesthesia reaction REMOTE HX, SIDE EFFECTS : ANXIETY AND SEVERE N/V History of COVID-19 6-8 MON AGO Hypertension Hypothyroidism Irregular heart beat follows Dr. 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 Moderate aortic stenosis GONZALEZ (nonalcoholic steatohepatitis) Osteoarthritis Portal hypertensive gastropathy SOB (shortness of breath) SINCE COVID 6-8 MON AGO, SOB, COUGH...NO DX...HAS VISIT WITH PULM UPCOMING TO EVALUATE Spondylosis Urinary incontinence UTI (urinary tract infection) FREQUENT/PREVENTATIVE ABX'S CURRENTLY MOST RECENT UTI JANUARY 04 - ABX COMPLETE - ON CURRENT PROPHYLACTIC TX Surgical History History of appendectomy History of back surgery sacral area History of cardiac cath multiple - most recent - 2 years ago @ [place] - FOR [facility] History of cataract surgery RT History of colonoscopy History of esophagogastroduodenoscopy (EGD) History of heart artery stent 2 yrs ago @ [facility] > unsure of how many stents > follows Dr. Lucas History of total right knee replacement Hx of cholecystectomy S/P CABG x 1 2010 - single vessel S/P CARLOS (total abdominal hysterectomy) Family History Father Coronary heart disease Brother Coronary heart disease Father No problems noted. Mother No problems noted. Social History Smoking Status: Never smoker Second Hand Exposure: Yes (DAUGHTER SMOKES); Hx Alcohol Use: No Hx Substance Use: No Preferred Language: German Communication Ability: Impaired Evs Manager Required: No Beliefs That Will Affect Care: None marital status: / Current Living Situation: Alone How many Children do You have: 0 Feels Safe at Home: Yes Assistive Devices: Bedside Commode, Hospital Bed, Walker and Wheelchair Review of Systems Review of Systems: Could not be reliably obtained secondary to lethargy Physical Exam Physical Exam: GENERAL: morbidly obese, lethargic , no respiratory distress SKIN: Pallor, warm HEENT: Pale palpebral conjunctivae, no ptosis, dry buccal mucosa NECK : Supple, short neck, no tenderness CHEST : Decreased breath sounds, no tenderness HEART : RRR, systolic murmur ABDOMEN: Some distention, nontender EXTREMITIES : Minimal LE swelling, minimal left hip tenderness, no other conspicuous deformities noted NEUROLOGIC : Lethargic , no facial asymmetry, gait and stance not assessed Results & Data Results & Data ([facility]) Vital Signs (Past 12 Hours) Vital Signs Temp Pulse Pulse Resp BP BP Pulse Ox 02/19/22 00:00 65 18 106/65 95 02/18/22 22:56 67 16 102/52 L 95 02/18/22 22:47 37 C 93 H 20 102/52 L 92 O2 Del Method 02/19/22 00:00 Room Air 02/18/22 22:56 02/18/22 22:47 Room Air Laboratory Results Laboratory Results WBC 7.25 K/ul (4.8-10.8) 02/18/22 22:30 RBC 3.35 M/uL (3.93-5.22) L 02/18/22: Hgb 8.2 g/dl (12.0-16.0) L 02/18/22: Hct 26.9 % (34.1-44.9) L 02/18/22: MCV 80.3 fL (80.0-100.0) 02/18/22: MCH 24.5 pg (25.0-34.0) L 02/18/22: MCHC 30.5 g/dL (32.0-36.0) L 02/18/22 RDW Std Deviation 54.0 fL (36.4-46.3) H 02/18/22: RDW Coeff of Guillermo 19.3 % (11.5-14.5) H 02/18/22: Plt Count 281 K/uL (130-400) 02/18/22: MPV 10.2 fL (9.4-12.3) 02/18/22: Immature Gran % (Auto) 2.2 % 02/18/22: Neut % (Auto) 62.4 % 02/18/22:30 Lymph % (Auto) 19.7 % 02/18/22: Harvey % (Auto) 8.8 % 02/18/22: Eos % (Auto) 6.3 % 02/18/22: Baso % (Auto) 0.6 % 02/18/22: Neut # (Auto) 4.52 K/uL (1.4-6.5) 02/18/22: Lymph # (Auto) 1.43 K/uL (1.2-3.4) 02/18/22:30 Harvey # (Auto) 0.64 K/uL (0.24-0.82) 02/18/22:30 Eos # (Auto) 0.46 K/uL (0-0.50) 02/18/22: Baso # (Auto) 0.04 K/uL (0-0.2) 02/18/22: Immature Gran # (Auto) 0.16 K/uL (0.00-0.02) H 08/15/22 22:30 Sodium 134 mmol/L (136-145) L 02/18/22 22:30 Potassium 3.8 mmol/L (3.5-5.1) 02/18/22 22:30 Chloride 98 mmol/L (98-107) 02/18/22 22:30 Carbon Dioxide 29 mmol/L (21-32) 02/18/22 22:30 Anion Gap 7 (3-11) 02/18/22 22:30 BUN 13 mg/dl (6-23) 02/18/22 22:30 Creatinine 1.11 mg/dl (0.6-1.2) 02/18/22 22:30 Est Cr Clr Drug Dosing Not Reportable 02/18/22:30 Est GFR ( Amer) 57.5 ml/min 02/18/22 22:30 Est GFR (Non-Af Amer) 49.6 ml/min 02/18/22 22:30 BUN/Creatinine Ratio 11.7 (10-20) 02/18/22 22:30 Glucose 119 mg/dl (70-99(Fasting)) H 02/18/22 22:30 POC Glucose 142 mg/dl (70-99) H 02/18/22 23:50 Calcium 8.6 mg/dl (8.5-10.1) 02/18/22 22:30 Magnesium 2.4 mg/dl (1.7-2.4) 02/18/22 22:30 Total Bilirubin 1.6 mg/dl (0.2-1.0) H 02/18/22 22:30 AST 31 U/L (13-39) 02/18/22 22:30 ALT 13 U/L (7-52) 02/18/22 22:30 Alkaline Phosphatase 157 U/L (34-104) H 02/18/22 22:30 Ammonia 24.0 umol/L (18-72) 02/18/22 23:41 Troponin I High Sens 18.3 pg/ml (0-14) H D 02/18/22 22:30 Total Protein 6.2 gm/dl (6.0-8.3) 02/18/22 22:30 Albumin 2.8 gm/dl (3.4-5.0) L 02/18/22 22:30 Globulin 3.4 gm/dl (2.5-4.0) 02/18/22 22:30 Albumin/Globulin Ratio 0.8 (0.9-2) L 02/18/22 22:30 TSH 5.394 uIu/ml (0.300-4.500) H 02/18/22 22:30 Free T4 1.18 ng/dl (0.61-1.60) 02/18/22 22:30 Urine Color Yellow 02/18/22 22:50 Urine Appearance Clear (Clear) 02/18/22 22:50 Urine pH 6.0 (4.5-7.5) 02/18/22 22:50 Ur Specific Eaton 1.013 (1.000-1.030) 02/18/22:50 Urine Protein Negative (Negative) 02/18/22 22:50 Urine Glucose (UA) Negative (Negative) 02/18/22 22:50 Urine Ketones Negative (Negative) 02/18/22 22:50 Urine Blood Negative (Negative) 02/18/22 22:50 Urine Nitrite Negative (Negative) 02/18/22 22:50 Urine Bilirubin Negative (Negative) 02/18/22 22:50 Urine Urobilinogen Positive (Negative) H 02/18/22 22:50 Ur Leukocyte Esterase 1+ (Negative) H 02/18/22 22:50 Urine WBC (Auto) 10-30 /hpf (0-5) H 02/18/22 22:50 Urine RBC (Auto) 5-10 /hpf (0-4) H 02/18/22 22:50 U Hyaline Cast (Auto) 10-30 /lpf (0-5) H 02/18/22 22:50 U Epithel Cells (Auto) >30 /lpf (0-5) H 02/18/22 22:50 Urine Bacteria (Auto) Negative (Negative) 02/18/22 22:50 Ur Renal Epithelial Cell 0-5 /lpf (0-5) 02/18/22 22:50 Urine Yeast Present (None Prsent) A 02/18/22 22:50 SARS-CoV-2 (PCR) NEGATIVE (Negative) 02/18/22 22:[address] head initial read: 1. No acute intracranial process. 2. Involutional changes with small vessel disease. Chest x-ray as per my interpretation cardiomegaly, atelectasis EKG as per my interpretation :Rate 65, NSR, LAD, LAFB, T wave flattening lateral and septal leads Code Status & VTE Plan VTE Prophylaxis Plan VTE Prophylaxis will be ordered: Yes
[2022-02-19] MEDS: INSULIN ASPART PER UNIT SC SCH ×5 (02:23→22:33)
[2022-02-19] MEDS ORDERED: DOCUSATE SODIUM/SENNA 50/8.6MG TAB PO PRN (03:13)
[2022-02-19] MEDS ORDERED: oxyCODONE HCL IR 5 MG TAB (IMMEDIATE RELEASE) PO PRN ×2 (03:17→14:18)
[2022-02-19 06:54] LABS: Basophils # (auto) 0.03 K/uL (0-0.2); Basophils % (auto) 0.5 %; Eosinophils # (auto) 0.36 K/uL (0-0.50); Hematocrit (blood only) 25.1 % (34.1-44.9); Hemoglobin 7.9 g/dl (12.0-16.0); Immature Granulocytes # (auto) 0.12 K/uL (0.00-0.02); Lymphocytes # (auto) 1.07 K/uL (1.2-3.4); Lymphocytes % (auto) 17.7 %; Mean Corpuscular Hemoglobin 24.5 pg (25.0-34.0); Mean Corpuscular Hgb Conc 31.5 g/dL (32.0-36.0); Mean Corpuscular Volume 77.7 fL (80.0-100.0); Mean Platelet Volume 9.9 fL (9.4-12.3); Monocytes % (auto) 8.3 %; Neutrophils # (auto) 3.96 K/uL (1.4-6.5); Neutrophils % (auto) 65.5 %; Platelet Count 253 K/uL (130-400); RDW Coefficient of Variation 19.5 % (11.5-14.5); Red Blood Count 3.23 M/uL (3.93-5.22); White Blood Count 6.04 K/ul (4.8-10.8)
[2022-02-19 07:17] LABS: Polychromasia 1+
[2022-02-19] MEDS: LEVOTHYROXINE SODIUM 88 MCG TABLET PO SCH (07:20)
[2022-02-19 07:26] LABS: BUN Creatinine Ratio 11.5 (10-20); Calcium 8.5 mg/dl (8.5-10.1); Creatinine Clr Calc Pharmacy 58.6 ml/min; Est GFR (African American) 56.2 ml/min; Est GFR (Non-African American) 48.5 ml/min; Potassium 3.6 mmol/L (3.5-5.1)
--- NOTE | 2022-02-19 07:47 | CT Scan Report ---
CT OF THE HEAD WITHOUT CONTRAST CLINICAL HISTORY: Altered mental status. COMPARISON STUDY: Head CT February 05, 2022. CT DOSE: 663.41 mGy.cm TECHNIQUE: Helical axial images of the head were obtained without IV contrast. Automated exposure con trol was utilized for the study. A dose lowering technique was utilized adhering to the principles o f ALARA. FINDINGS: No acute intracranial hemorrhage, midline shift or mass effect is present. White matter hyp odensities are unchanged and favor small vessel disease. The ventricular system is unremarkable. The basal cisterns are patent. No extra-axial collections are present. There are no findings to suggest a cute dural sinus thrombosis or acute territorial infarct. No significant calvarial abnormalities are present. Visualized portions of the sinuses and mastoid air cells are clear. IMPRESSION: No acute intracranial findings. ACT 112: Negative or not required by law. Electronically signed by: Mu Bonds M.D. 02/19/2022 7:46 AM
--- NOTE | 2022-02-19 08:02 | XRay Report ---
SINGLE VIEW CHEST CLINICAL HISTORY: Generalized weakness. FINDINGS: An AP, portable, upright chest radiograph is compared to study dated 02/08/2022. The examinat ion is degraded by portable technique and apical lordotic positioning. The patient is status post mid line sternotomy. The heart is top normal for projection noting atherosclerotic calcification of the t horacic aorta. The pulmonary vasculature is noncongested. Elevation of the right hemidiaphragm and ch ronic interstitial thickening is similar to previous. There is bibasilar atelectasis. The lungs and p leural spaces are otherwise clear. No pneumothorax is seen. The bony thorax is grossly intact. Cholec ystectomy clips are noted in the right upper quadrant. IMPRESSION: No active disease in the chest. ACT 112: Negative or not required by law. Electronically signed by: Berto Snow M.D. 02/19/2022 8:01 AM
[2022-02-19] MEDS ORDERED: LEVOTHYROXINE SODIUM 88 MCG TABLET PO SCH (09:00)
[2022-02-19] MEDS ORDERED: LANTUS PER UNIT CHARGE SQ SCH (09:00)
[2022-02-19] MEDS: ASPIRIN 81 MG ECTAB PO SCH (09:17)
[2022-02-19] MEDS: DOCUSATE SODIUM 100 MG CAP PO SCH ×2 (09:18→22:39)
[2022-02-19] MEDS: METOPROLOL SUCC 25MG EXT REL TAB PO SCH (09:18)
[2022-02-19] MEDS: ATORVASTATIN 40 MG TAB PO SCH (09:18)
[2022-02-19] MEDS: PANTOprazole 40 MG TAB PO SCH (09:18)
[2022-02-19] MEDS: rifAXIMin 550 MG TABLET PO SCH ×2 (09:19→22:34)
[2022-02-19] MEDS: VENLAFAXINE HCL XR 75 MG CAPXR PO SCH (09:19)
[2022-02-19] MEDS: TAMSULOSIN HCL 0.4 MG CAP PO SCH (09:19)
[2022-02-19] MEDS: OXYBUTYNIN CHLORIDE XL 5 MG TABCR PO SCH (09:19)
[2022-02-19] MEDS: lamoTRIgine 25 MG TAB PO SCH (09:20)
[2022-02-19] MEDS: ENOXAPARIN INJ 30 MG/0.3 ML SYR SQ SCH ×2 (09:21→22:32)
[2022-02-19] MEDS: lamoTRIgine 100 MG TAB PO SCH (09:21)
[2022-02-19] MEDS: LACTULOSE SYRUP 30 GM/45 ML UDP PO SCH ×3 (09:21→22:49)
[2022-02-19] MEDS ORDERED: MEROPENEM 500 MG in SYRINGE 0 ML IV SCH (11:00)
--- NOTE | 2022-02-19 14:34 | Hospitalist Progress Note ---
Date of Service February 19, 2022 Assessment & Plan (1) Encephalopathy: Plan: Recurrent UTIs Polypharmacy (patient on multiple neuropsychotropic and narcotic medications.) Troponin elevation secondary to illness chronic diastolic heart failure (EF 55 to 59%, TTE 09/2021), patient on the dry side hx CAD status post CABG/stent Moderate hypertension, stable hyperlipidemia, on statin Rx bipolar disorder/OCD, at baseline DM2 insulin requiring, well-controlled as of recent hemoglobin A1c of 11 December 2021 History ambulatory dysfunction/Kxfhaof-Ezgsr-Cfjje disease chronic hyponatremia Postop anemia, hemoglobin stable at 8 history ESBL E. coli UTI ongoing Ertapenem Rx past history DVT as per records Urine culture negative and recnetly completed 10 days of carbapenem-stop merrem now DC telemetry Advance diet cont to hold long activng morphine and utilize oxycodone and clonazepam only as needed. restart/cont Abilify/Lamictal/gabapentin/effexor. Troponin trend did not elevate. No evidence of ACS at this time. Basal insulin, ISS BG goal 1 10-1 40, carb count coverage Dr. Cha aware of patient admission and will come to evaluate her wound whle she is inpatient. DVT prophylaxis. Lovenox as per postop orthopedic orders. Full code as per patient's prior directives. Cristiane Mo DO [facility] Hospitalist Admission and Anticipated Discharge Date Admission Date: February 19, 2022 Subjective 71 yo F with Bipolar disorder and chronic pain on chronic narcotics s/p recent hip surgery after a fall and recently treated with 10 dyas of carbapenem therapy for ESBL e coli UTI presents with encephalopathy. She is a victim of polypharmacy. Now that these meds have been held, she is starting to wake up She is answering questions appropriately and is eating well Cirrhosis present that appears compensated. 2 BMs reported by nurse this am. Spoke with daughter, Carolyn, regarding her thoughts on the encephalopathy and polypharmacy We came up with a good plan to wean some of the meds. Pain Medicine consult also requested. Review of Systems Review of Systems: All systems were reviewed and negative except as indicated on subjective above. Physical Exam Physical Exam: CONSTITUTIONAL: obese, vitals as above, generally lethargic but awakens easily and answers questions appropriately. EYES: normal conjunctivae, no scleral icterus ENT: external ear and nose normal, MMM NECK: trachea midline, RESPIRATORY: clear to auscultation bilaterally, no crackles, rales or wheezes, normal respiratory effort CARDIOVASCULAR: regular rate and rhythm, S1 and 2 heard without murmurs, gallops or rubs, no JVD, no peripheral edema CHEST: inspection of chest was normal GASTROINTESTINAL: soft, nontender, ND, no guarding MUSCULOSKELETAL: generalized weakness but moving all extremities equally, head is normocephalic and atraumatic, neck supple, normal palpation of chest wall without tenderness SKIN: warm and dry, left hip wound not visualized. Alejandra intact per nurse, and wound is well approximated. NEUROLOGIC: CN 2-12 grossly intact, no sensory deficit, normal cognition, normal speech, no tremor PSYCHIATRIC: fatigued. cooperative and oriented to person, place and time. Results & Data Results & Data ([facility]) Vital Signs (Past 12 Hours) Vital Signs Temp Pulse Resp BP Pulse Ox O2 Del Method 02/19/22 13:33 Room Air 02/19/22 11:24 36.6 C 67 18 106/62 96 Room Air 02/19/22 09:17 36.9 C 63 18 105/68 97 Room Air 02/19/22 04:00 68 18 105/55 L 98 Laboratory Results Short CBC 02/18/22 02/19/22 Range/Units 22:30 06:34 WBC 7.25 6.04 (4.8-10.8) K/ul Hgb 8.2 L 7.9 L (12.0-16.0) g/dl Hct 26.9 L 25.1 L (34.1-44.9) % Plt Count 281 253 (130-400) K/uL BMP 02/18/22 02/19/22 22:30 06:34 Sodium 134 L 135 L Potassium 3.8 3.6 Chloride 98 98 Carbon Dioxide 29 30 BUN 13 13 Creatinine 1.11 1.13 Glucose 119 H 139 H Calcium 8.6 8.5 Liver Function 02/18/22 Range/Units 22:30 Total Bilirubin 1.6 H (0.2-1.0) mg/dl AST 31 (13-39) U/L ALT 13 (7-52) U/L Alkaline Phosphatase 157 H (34-104) U/L Albumin 2.8 L (3.4-5.0) gm/dl Urine 02/18/22 Range/Units 22:50 Urine Color Yellow Urine Appearance Clear (Clear) Urine pH 6.0 (4.5-7.5) Ur Specific [place] 1.013 (1.000-1.030) Urine Protein Negative (Negative) Urine Glucose (UA) Negative (Negative) Diagnostic Findings Chest X-Ray 02/18/22 22:45 SINGLE VIEW CHEST CLINICAL HISTORY: Generalized weakness. FINDINGS: An AP, portable, upright chest radiograph is compared to study dated 02/08/2022. The examination is degraded by portable technique and apical lordotic positioning. The patient is status post midline sternotomy. The heart is top normal for projection noting atherosclerotic calcification of the thoracic aorta. The pulmonary vasculature is noncongested. Elevation of the right hemidiaphragm and chronic interstitial thickening is similar to previous. There is bibasilar atelectasis. The lungs and pleural spaces are otherwise clear. No pneumothorax is seen. The bony thorax is grossly intact. Cholecystectomy clips are noted in the right upper quadrant. IMPRESSION: No active disease in the chest. Head CT 02/19/22 00:58 CT OF THE HEAD WITHOUT CONTRAST CLINICAL HISTORY: Altered mental status. COMPARISON STUDY: Head CT February 05, 2022. CT DOSE: 663.41 mGy.cm TECHNIQUE: Helical axial images of the head were obtained without IV contrast. Automated exposure control was utilized for the study. A dose lowering technique was utilized adhering to the principles of ALARA. FINDINGS: No acute intracranial hemorrhage, midline shift or mass effect is present. White matter hypodensities are unchanged and favor small vessel disease. The ventricular system is unremarkable. The basal cisterns are patent. No extra-axial collections are present. There are no findings to suggest acute dural sinus thrombosis or acute territorial infarct. No significant calvarial abnormalities are present. Visualized portions of the sinuses and mastoid air cells are clear. IMPRESSION: No acute intracranial findings. Medications Administered Current Inpatient Medications Acetaminophen (Acetaminophen 500 Mg Tab) 500 mg PO Q6H PRN PRN Reason: Mild Pain Stop: 03/21/22 01:05 Aripiprazole (Aripiprazole 1 Mg/Ml Oral Soln 150 Ml Btl) 2 mg PO HS ANGELLA Stop: 03/21/22 20:59 Aspirin (Aspirin 81 Mg Ectab) 81 mg PO DAILY ANGELLA Stop: 03/21/22 08:59 Last Admin: 02/19/22 09:17 Dose: 81 mg Atorvastatin Calcium (Atorvastatin 40 Mg Tab) 40 mg PO DAILY ANGELLA Stop: 03/21/22 08:59 Last Admin: 02/19/22 09:18 Dose: 40 mg Dextrose (Dextrose 50% 50 Ml Syringe) 25 - 50 ml IV UD PRN; Protocol PRN Reason: Hypoglycemia Protocol Stop: 03/21/22 01:05 Docusate Sodium (Docusate Sodium 100 Mg Cap) 100 mg PO BID [facility] Stop: 03/21/22 08:59 Last Admin: 02/19/22 09:18 Dose: 100 mg Enoxaparin Sodium (Enoxaparin Inj 30 Mg/0.3 Ml Syr) 30 mg SQ Q12H ANGELLA Stop: 03/08/22 23:59 Last Admin: 02/19/22 09:21 Dose: 30 mg Ergocalciferol (Ergocalciferol 50,000 Units 1250 Mcg Cap) 50,000 units PO Th@0900 ANGELLA Stop: 03/23/22 08:59 Glucagon (Glucagon For Inj 1 Mg Vial) 1 mg SQ UD PRN; Protocol PRN Reason: Hypoglycemia Protocol Stop: 03/21/22 01:05 Glucose (Glucose 40% Gel 15 Gm Tube) 15 - 30 gm PO UD PRN; Protocol PRN Reason: Hypoglycemia Protocol Stop: 03/21/22 01:05 Glucose (Glucose 10 Tab/Tube) 4 - 8 tab PO UD PRN; Protocol PRN Reason: Hypoglycemia Treatment Stop: 03/21/22 01:05 Insulin Aspart (Insulin Aspart Per Unit) 0 units SC ACHS [facility] Stop: 03/21/22 01:05 Last Admin: 02/19/22 13:11 Dose: 2 units Insulin Glargine (Lantus Per Unit Charge) 15 units SQ BID [facility] Stop: 03/21/22 20:59 Lactulose (Lactulose Syrup 30 Gm/45 Ml Udp) 30 gm PO BID [facility] Stop: 03/21/22 08:59 Last Admin: 02/19/22 09:21 Dose: 30 gm Lamotrigine (Lamotrigine 25 Mg Tab) 75 mg PO QAM [facility] Stop: 03/21/22 08:59 Last Admin: 02/19/22 09:20 Dose: 75 mg Lamotrigine (Lamotrigine 100 Mg Tab) 100 mg PO QAM [facility] Stop: 03/21/22 08:59 Last Admin: 02/19/22 09:21 Dose: 100 mg Levothyroxine Sodium (Levothyroxine Sodium 88 Mcg Tablet) 88 mcg PO DAILYBB ANGELLA Stop: 03/21/22 06:29 Last Admin: 02/19/22 07:20 Dose: 88 mcg Metoprolol Succinate (Metoprolol Succ 25mg Ext Rel Tab) 25 mg PO DAILY ANGELLA Stop: 03/21/22 08:59 Last Admin: 02/19/22 09:18 Dose: 25 mg Miscellaneous (Carbohydrates For Hypoglycemia ) 15 - 30 gm PO UD PRN PRN Reason: Hypoglycemia Protocol Stop: 03/21/22 01:05 Montelukast Sodium (Montelukast Sodium 10 Mg Tablet) 10 mg PO PM ANGELLA Stop: 03/21/22 20:59 Oxybutynin Chloride (Oxybutynin Chloride Xl 5 Mg Tabcr) 10 mg PO DAILY ANGELLA Stop: 03/21/22 08:59 Last Admin: 02/19/22 09:19 Dose: 10 mg Oxycodone HCl (Oxycodone Hcl Ir 5 Mg Tab (Immediate Release)) 5 mg PO Q8 PRN PRN Reason: Severe Pain Stop: 03/05/22 03:16 Pantoprazole Sodium (Pantoprazole 40 Mg Tab) 40 mg PO QAM ANGELLA Stop: 03/21/22 08:59 Last Admin: 02/19/22 09:18 Dose: 40 mg Rifaximin (Rifaximin 550 Mg Tablet) 550 mg PO BID ANGELLA Stop: 03/21/22 08:59 Last Admin: 02/19/22 09:19 Dose: 550 mg Senna/Docusate Sodium (Docusate Sodium/Senna 50/8.6mg Tab) 1 tab PO DAILY PRN PRN Reason: Constipation Stop: 03/21/22 03:12 Tamsulosin HCl (Tamsulosin Hcl 0.4 Mg Cap) 0.4 mg PO DAILY ANGELLA Stop: 03/21/22 08:59 Last Admin: 02/19/22 09:19 Dose: 0.4 mg Venlafaxine HCl (Venlafaxine Hcl Xr 75 Mg Capxr) 225 mg PO DAILY ANGELLA Stop: 03/21/22 08:59 Last Admin: 02/19/22 09:19 Dose: 225 mg
--- NOTE | 2022-02-19 14:48 | Electrocardiogram Report ---
Test Reason : Blood Pressure : / mmHG Vent. Rate : 067 BPM Atrial Rate : 067 BPM P-R Int : 182 ms QRS Dur : 088 ms QT Int : 440 ms P-R-T Axes : 011 -51 058 degrees QTc Int : 464 ms Poor data quality, interpretation may be adversely affected Normal sinus rhythm Left axis deviation Low voltage QRS Inferior infarct (cited on or before 12-DEC-2021) Possible Anterolateral infarct , age undetermined Abnormal ECG When compared with ECG of 05-FEB-2022 03:01, Questionable change in QRS duration Borderline criteria for Anterior infarct are now Present Borderline criteria for Anterolateral infarct are now Present Questionable change in initial forces of Inferior leads Confirmed by Venkat Worrell ([id number]) on 02/19/2022 2:48:40 PM Referred By: REFERRED SELF Confirmed By:Venkat Worrell
[2022-02-19] MEDS ORDERED: clonazePAM 0.5 MG TAB PO PRN (15:15)
[2022-02-19] MEDS ORDERED: ESTRADIOL PV SCH (21:00)
[2022-02-19] MEDS: ARIPIprazole 1 MG/ML ORAL SOLN 150 ML BTL PO SCH (22:32)
[2022-02-19] MEDS: GABAPENTIN 300 MG CAP PO SCH (22:33)
[2022-02-19] MEDS: MONTELUKAST SODIUM 10 MG TABLET PO SCH (22:34)
[2022-02-19] MEDS: TORSEMIDE 10 MG TAB PO SCH (22:35)
[2022-02-19] MEDS: SPIRONOLACTONE 25 MG TAB PO SCH (22:35)
[2022-02-19] MEDS: LANTUS PER UNIT CHARGE SQ SCH (22:39)
[2022-02-20] MEDS: LEVOTHYROXINE SODIUM 88 MCG TABLET PO SCH (05:51)
--- NOTE | 2022-02-20 08:45 | Pain Management Consultation ---
Date of Consultation February 20, 2022 Assessment & Plan (1) Chronic low back pain: (2) Left hip pain: (3) Encephalopathy: (4) Ambulatory dysfunction: (5) Kauqbsn-Dfegj-Jgglw disease: (6) Bipolar disorder: Plan 1. Patient appears to continue to have some confusion based on reporting that she was residing at home prior to this admission. Uncertain as to role of opiate therapy as she has been chronically on MS Contin and Oxy IR upon review of her medical records and PDMP indicating recurrent monthly prescriptions for MS Contin 15 mg #60 and Oxy IR 5 mg #90. Obviously increased risk of mental confusion with concomitant utilization of opiates, benzodiazepines and her multiple psychotropic medications. Patient has only utilized Oxy IR 1 time over the past 20 hours as MS Contin has been discontinued. Would question the need for utilization of long-acting opiate therapy in this patient at this time. Pain service has nothing interventional to offer the patient. At this time, would recommend continuing with Oxy IR 5 mg for as needed breakthrough pain only.. Should she continue to have altered mental status/mental confusion would consider Nucynta IR 50 mg 1 tablet p.o. every 6 hours as needed for breakthrough pain. Should long-acting opiates to be considered in the future would recommend consideration of Butrans patch. Pain service will sign off on patient at this time. Please contact for reevaluation as needed. Thank you for allowing us to participate in the care of Mrs. Ballard. History of Present Illness Reason for Consultation: Chronic opioid dependency/polypharmacy with recurrent presentation for confusion/disorientation Requesting Physician: Cristiane Mo DO Attending Physician: Cristiane Mo DO History of Present Illness Mrs. Manzano is a 71-year-old morbidly obese white female who was admitted from rehabilitative setting due to complaints of altered mental status from the rehab facility staff. The patient was discharged approximately 1 week ago status post a left EDYTA which was performed due to left hip fracture. She also had concomitant complication with UTI due to ESBL-producing E. coli. Patient has m ultiple comorbid medical conditions including CMT, chronic low back pain, bipolar disorder/OCD, chronic opiate dependency, cirrhosis secondary to NAFLD, insulin-dependent diabetes, history of MRSA/VRE, hypertension, hyperlipidemia, diastolic heart failure, CAD status post CABG status post stent placement with moderate and recurrent UTI. Patient is prescribed chronic MS Contin 15 mg twice daily and Oxy IR 5 mg daily-twice daily in the outpatient setting by her PCP. She also prescribed concomitant clonazepam 0.5 mg #90/month by her PCP. Patient also takes multiple psychotropic medications including Abilify, lamotrigine and venlafaxine. Patient is reporting her chronic pain complaints in her axial lumbar spine without change in location or characteristic. She is also experiencing some left lateral hip pain status post EDYTA. MS Contin has been held upon this admission and patient is utilize Oxy IR 1 time only in the past 24 hours. She denies a radicular pattern to her current pain complaints. She describes her pain as aching in characteristic. She is unable to quantify her pain on a pain scale. Patient reports that she does ambulate although review of chart indicates minimal ambulation due to her history of CMT and ambulatory dysfunction. She further reports that she was residing at home prior to this admission when she was [facility] status post her EDYTA. She was unable to orient to time and place. Rest of history was obtained upon review of chart. Patient has no further constitutional complaints. Plan of care discussed with Dr. Andie Vasquez. Pain Assessment Full Body Front + Back: 1. Axial lumbar spine 2. Left hip status post EDYTA Allergies Allergy/AdvReac Type Severity Reaction Status Date / Time propoxyphene Allergy Intermediate Rash Verified 02/19/22 02:20 fentanyl AdvReac Intermediate PANIC Verified 02/19/22 02:20 WANTS TO RUN AND AGGRESSIVE methocarbamol AdvReac Intermediate DELERIUM Verified 02/19/22 02:20 zolpidem AdvReac Intermediate confusion Verified 02/19/22 02:20 Home Medications Medication Instructions Recorded Confirmed Type Lactulose 30g=45ml 45 ml PO BID 02/19/22 02/19/22 History acetaminophen 325 mg tablet 650 mg PO Q4 PRN .PAIN 1-3 02/19/22 02/19/22 History (Tylenol) albuterol sulfate 90 mcg/actuation 2 puff inhalation QID PRN .wheezing 02/19/22 02/19/22 History aerosol inhaler aripiprazole 2 mg tablet 2 mg PO HS 02/19/22 02/19/22 History ascorbic acid (vitamin C) 500 mg 500 mg PO BID 02/19/22 02/19/22 History tablet (Vitamin C) aspirin 81 mg tablet,delayed 81 mg PO DAILY 02/19/22 02/19/22 History release atorvastatin 40 mg tablet 40 mg PO DAILY 02/19/22 02/19/22 History clonazepam 0.5 mg tablet 0.5 mg PO Q8 02/19/22 02/19/22 History dicyclomine 20 mg tablet 10 mg PO QID PRN .IRRITABLE BOWEL 02/19/22 02/19/22 History docusate sodium 100 mg capsule 100 mg PO BID 02/19/22 02/19/22 History dulaglutide 4.5 mg/0.5 mL 4.5 mg subcut WK 02/19/22 02/19/22 History subcutaneous pen injector (Trulicity) enoxaparin 30 mg/0.3 mL 30 mg subcut Q12H 02/19/22 02/19/22 History subcutaneous syringe ergocalciferol (vitamin D2) 1,250 1,250 mcg PO .QTHUR 02/19/22 02/19/22 History mcg (50,000 unit) capsule (Vitamin D2) estradiol 0.01% (0.1 mg/gram) 1 g vaginal HS 02/19/22 02/19/22 History vaginal cream (Estrace) gabapentin 300 mg capsule 300 mg PO BID 02/19/22 02/19/22 History insulin glargine 100 unit/mL 10 unit subcut Q12 02/19/22 02/19/22 History subcutaneous solution insulin regular human 100 unit/mL 1 sliding scale dose subcut ACHS 02/19/22 02/19/22 History injection solution (Humulin R Regular U-100 Insulin) lamotrigine 100 mg tablet 100 mg PO QAM 02/19/22 02/19/22 History (Lamictal) lamotrigine 25 mg tablet 75 mg PO QAM 02/19/22 02/19/22 History levothyroxine 88 mcg tablet 88 mcg PO DAILY 02/19/22 02/19/22 History levothyroxine 88 mcg tablet 88 mcg PO QAM 02/19/22 02/19/22 History magnesium hydroxide 400 mg/5 mL 30 ml PO DAILY PRN Constipation 02/19/22 02/19/22 History oral suspension (Milk of Magnesia) metoprolol succinate 25 mg 25 mg PO DAILY 02/19/22 02/19/22 History tablet,extended release 24 hr montelukast 10 mg tablet 10 mg PO DAILY 02/19/22 02/19/22 History morphine 15 mg tablet,extended 15 mg PO Q12 02/19/22 02/19/22 History release oxybutynin chloride 5 mg 10 mg PO DAILY 02/19/22 02/19/22 History tablet,extended release 24 hr oxycodone 5 mg tablet 5 mg PO Q8 PRN Pain 02/19/22 02/19/22 History pantoprazole 40 mg tablet,delayed 40 mg PO QAM 02/19/22 02/19/22 History release rifaximin 550 mg tablet (Xifaxan) 550 mg PO BID 02/19/22 02/19/22 History sennosides 8.6 mg-docusate sodium 1 tab-cap PO DAILY PRN Constipation 02/19/22 02/19/22 History 50 mg tablet (Senokot-S) sodium chloride 0.9 % (flush) 5 ml IV Q8H 02/19/22 02/19/22 History (Normal Saline Flush 0.9 % injection syringe) spironolactone 25 mg tablet 25 mg PO BID 02/19/22 02/19/22 History (Aldactone) tamsulosin 0.4 mg capsule 0.4 mg PO DAILY 02/19/22 02/19/22 History torsemide 20 mg tablet 20 mg PO BID 02/19/22 02/19/22 History venlafaxine 75 mg capsule,extended 225 mg PO DAILY 02/19/22 02/19/22 History release 24 hr Patient History Medical History (Updated 02/20/22 @ 08:39 by Jhony Recinos PA-C) Anxiety Bipolar disorder CAD (coronary artery disease) History of multiple PCI's to the RCA with subsequent CABG x1 in 2010 x 1 vessel Most recent cardiac testing-negative DSE in December 2017 Follows w/ Dr. Blackwell and Dr. Lucas Ulohllc-Qfxqc-Frejg disease follows w/ Dr. Lemus LEG WEAKNESS CURRENT PT/OT FOR - BRACES B/L LEGS Chronic diastolic CHF (congestive heart failure) Chronic low back pain Chronic pain syndrome Depression DM type 2 (diabetes mellitus, type 2) IDDM Dyslipidemia Encephalopathy d/c from [facility] 09/20/19 (hepatic encephalopathy) Gastroparesis GERD (gastroesophageal reflux disease) History of anesthesia reaction REMOTE HX, SIDE EFFECTS : ANXIETY AND SEVERE N/V History of COVID-19 6-8 MON AGO Hypertension Hypothyroidism Irregular heart beat follows Dr. Lucas / S[facility] Brewster Left hip pain Left hip hemiarthroplasty 02/05/2022 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 Moderate aortic stenosis GONZALEZ (nonalcoholic steatohepatitis) Osteoarthritis Portal hypertensive gastropathy SOB (shortness of breath) SINCE COVID 19/ 6-8 MON AGO, SOB, COUGH...NO DX...HAS VISIT WITH PULM UPCOMING TO EVALUATE Spondylosis Urinary incontinence UTI (urinary tract infection) FREQUENT/PREVENTATIVE ABX'S CURRENTLY MOST RECENT UTI JANUARY 04 - ABX COMPLETE - ON CURRENT PROPHYLACTIC TX Surgical History History of appendectomy History of back surgery sacral area History of cardiac cath multiple - most recent - 2 years ago @ [facility] History of cataract surgery RT History of colonoscopy History of esophagogastroduodenoscopy (EGD) History of heart artery stent 2 yrs ago @ [facility] > unsure of how many stents > follows Dr. Lucas History of total right knee replacement Hx of cholecystectomy S/P CABG x 1 2010 - single vessel S/P CARLOS (total abdominal hysterectomy) Family History Father Coronary heart disease Brother Coronary heart disease Father No problems noted. Mother No problems noted. Social History Smoking Status: Never smoker Second Hand Exposure: Yes (DAUGHTER SMOKES); Hx Alcohol Use: No Hx Substance Use: No Preferred Language: Greenlandic Communication Ability: Impaired Film Coater Required: No Beliefs That Will Affect Care: None marital status: / Current Living Situation: Alone How many Children do You have: 0 Feels Safe at Home: Yes Assistive Devices: Bedside Commode, Hospital Bed, Walker and Wheelchair Physical Exam Physical Exam: General: Patient lying sleeping upon entering the exam room. Patient was easily arousable. Patient is in no acute distress. Speech and thought process appropriate. Mood and affect flat and irritable. Patient was oriented to person and reported she was in "[place]". Morbid obesity. Head: Normocephalic and atraumatic. ENT: No evidence of nasal or oral mucosal lesions. Mucous membranes are moist. Poor dentition. Eyes: Pupils equal round reactive to light. Neck: Supple without adenopathy and full range of motion. Chest: Nontender to palpation of the costosternal junction. Abdomen: Soft and nondistended. No organomegaly. Bowel sounds active. There is some ecchymosis in the left lower abdomen near the hip. Back/spine: Patient unwilling to logroll for physical exam. Lower extremities: Patient has a right leg and foot crossed over her left onto the knee. She reports complete loss of sensation of the feet bilaterally nondermatomal patterns. Patient unable to dorsiflex or plantarflex. Strength was 4/5 with knee flexion/extension bilaterally and hip flexion/extension bilaterally. Sensation is intact in the pretibial region. There is no evident skin breakdown. Incisional site over the left lateral hip status post EDYTA without evidence of edema, erythema or discharge. Neurologic: Cranial nerves grossly intact. Ambulatory function not witnessed. Results (Pain Clinic) Previous Records Review Previous Records: personally reviewed by me
[2022-02-20] MEDS: INSULIN ASPART PER UNIT SC SCH ×4 (08:54→22:14)
[2022-02-20] MEDS: ASPIRIN 81 MG ECTAB PO SCH (09:26)
[2022-02-20] MEDS: PANTOprazole 40 MG TAB PO SCH (09:27)
[2022-02-20] MEDS: OXYBUTYNIN CHLORIDE XL 5 MG TABCR PO SCH (09:27)
[2022-02-20] MEDS: LANTUS PER UNIT CHARGE SQ SCH ×2 (09:27→22:19)
[2022-02-20] MEDS: lamoTRIgine 100 MG TAB PO SCH (09:27)
[2022-02-20] MEDS: ATORVASTATIN 40 MG TAB PO SCH (09:27)
[2022-02-20] MEDS: METOPROLOL SUCC 25MG EXT REL TAB PO SCH (09:27)
[2022-02-20] MEDS: ENOXAPARIN INJ 30 MG/0.3 ML SYR SQ SCH ×2 (09:27→22:11)
[2022-02-20] MEDS: DOCUSATE SODIUM 100 MG CAP PO SCH ×2 (09:27→22:19)
[2022-02-20] MEDS: LACTULOSE SYRUP 30 GM/45 ML UDP PO SCH ×2 (09:27→22:14)
[2022-02-20] MEDS: GABAPENTIN 300 MG CAP PO SCH ×2 (09:27→22:13)
[2022-02-20] MEDS: lamoTRIgine 25 MG TAB PO SCH (09:27)
[2022-02-20] MEDS: VENLAFAXINE HCL XR 75 MG CAPXR PO SCH (09:28)
[2022-02-20] MEDS: rifAXIMin 550 MG TABLET PO SCH ×2 (09:28→22:15)
[2022-02-20] MEDS: TAMSULOSIN HCL 0.4 MG CAP PO SCH (09:28)
[2022-02-20] MEDS: TORSEMIDE 10 MG TAB PO SCH ×2 (09:28→22:16)
[2022-02-20] MEDS: SPIRONOLACTONE 25 MG TAB PO SCH ×2 (09:28→22:15)
--- NOTE | 2022-02-20 10:09 | Progress Notes ---
DATE OF SERVICE: 02/20/2022. Angelina had a left hip hemiarthroplasty done on 02/05/2022. She has been readmitted to the hospital fo r encephalopathy. She is afebrile. Her vital signs are stable. X-rays of the left hip have been or dered, but not performed yet. She does not have any active movement of either lower extremity. With her permission, I was able to flex her hip about 45 degrees without difficulty. She has a 1+ dorsal is pedis pulse. There is mild swelling of the left leg. I introduced myself and showed her my ID. She did not believe who I was. She did not want me to do anything further. We asked to examine her left hip wound, change the dressing, remove the daniel, but she declined. We will [place] back aleta chris when her daughter is around and she is a little more agreeable. It has been two weeks since surge ry. Would want to check x-rays, assess wound, likely take daniel out. She will need to continue wi th total hip precautions. She can weight bear as tolerated, and she will need an abduction pillow be tween her knees. Job ID: [id number]
--- NOTE | 2022-02-20 11:20 | XRay Report ---
LEFT HIP 2 VIEWS CLINICAL HISTORY: Postoperative examination. Pain. FINDINGS: AP and frog-leg views of the left hip are compared to study dated 02/05/2022 and correlated w ith CT of the left hip dated 02/07/2022. The skeletal structures are osteopenic. A left hip arthroplast y is in near-anatomic alignment. No acute fracture is seen. Skin clips and soft tissue edema overlyin g the left hip are expected postoperative findings. IMPRESSION: Expected postoperative findings related to recent left hip arthroplasty. No acute bony ab normality is seen. Electronically signed by: Berto Snow M.D. 02/20/2022 11:19 AM
--- NOTE | 2022-02-20 12:52 | Hospitalist Progress Note ---
Date of Service February 20, 2022 Assessment & Plan (1) Encephalopathy: Plan: Recurrent UTIs Polypharmacy (patient on multiple neuropsychotropic and narcotic medications.) Now hospital delirium this morning that resolved with supportive care. Troponin elevation secondary to illness chronic diastolic heart failure (EF 55 to 59%, TTE 09/2021), patient on the dry side hx CAD status post CABG/stent Moderate hypertension, stable hyperlipidemia, on statin Rx bipolar disorder/OCD, at baseline DM2 insulin requiring, well-controlled as of recent hemoglobin A1c of 11 December 2021 History ambulatory dysfunction/Ubahaih-Cbnwk-Kgyjw disease chronic hyponatremia Postop anemia, hemoglobin stable at 8 history ESBL E. coli UTI ongoing Ertapenem Rx past history DVT as per records Urine culture negative and recently completed 10 days of carbapenem-stopped merrem restart and doing well. cont to hold long activng morphine and utilize oxycodone and clonazepam only as needed. Per PM consultation may consider a long acting pain patch as outpatient. cont Abilify/Lamictal/gabapentin/effexor per home regimen. Cont current insulin therapy, BSG at goal. Dr. Cha to perform post op check of wound while she is here. DVT prophylaxis. Lovenox as per postop orthopedic orders. Full code as per patient's prior directives. Cristiane Mo DO [facility] Hospitalist Admission and Anticipated Discharge Date Admission Date: February 19, 2022 Subjective 71 yo F with Bipolar disorder and chronic pain on chronic narcotics s/p recent hip surgery after a fall and recently treated with 10 dyas of carbapenem therapy for ESBL e coli UTI presents with encephalopathy. Some delirium this morning but she has now cleared and is oriented Daughter is at bedside and is very supportive. Patient refused meds and eval by orthopedics this morning-she doesn't remember Aside from feeling anxious and reporting some discomfort in her coccyx which is chronic she is doing well She declines clonazepam at this time but understands that it and oxy are there if she needs them. 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 Physical Exam Physical Exam: CONSTITUTIONAL: obese, vitals as above, generally lethargic but awakens easily and answers questions appropriately. EYES: normal conjunctivae, no scleral icterus ENT: external ear and nose normal, MMM NECK: trachea midline, RESPIRATORY: clear to auscultation bilaterally, no crackles, rales or wheezes, normal respiratory effort CARDIOVASCULAR: regular rate and rhythm, S1 and 2 heard without murmurs, gallops or rubs, no JVD, no peripheral edema CHEST: inspection of chest was normal GASTROINTESTINAL: soft, nontender, ND, no guarding MUSCULOSKELETAL: generalized weakness but moving all extremities equally, head is normocephalic and atraumatic, neck supple, normal palpation of chest wall without tenderness SKIN: warm and dry, left hip wound visualized, Wound well approximated and daniel in place. NEUROLOGIC: CN 2-12 grossly intact, no sensory deficit, normal cognition, normal speech, no tremor PSYCHIATRIC: alert, cooperative and oriented to person, place and time. Results & Data Results & Data ([facility]) Vital Signs (Past 12 Hours) Vital Signs O2 Del Method 02/20/22 10:04 Room Air 02/20/22 01:43 Room Air Laboratory Results Short CBC 02/20/22 Range/Units 13:12 WBC 5.64 (4.8-10.8) K/ul Hgb 8.6 L (12.0-16.0) g/dl Hct 26.8 L (34.1-44.9) % Plt Count 252 (130-400) K/uL BMP 02/20/22 13:12 Sodium 132 L Potassium 3.9 Chloride 95 L Carbon Dioxide 29 BUN 11 Creatinine 1.05 Glucose 181 H Calcium 8.6 Liver Function 02/20/22 Range/Units 13:12 Total Bilirubin 1.6 H (0.2-1.0) mg/dl AST 23 (13-39) U/L ALT 12 (7-52) U/L Alkaline Phosphatase 149 H (34-104) U/L Albumin 2.8 L (3.4-5.0) gm/dl Diagnostic Findings Hip X-Ray 02/20/22 09:14 LEFT HIP 2 VIEWS CLINICAL HISTORY: Postoperative examination. Pain. FINDINGS: AP and frog-leg views of the left hip are compared to study dated 02/05/[address] of the left hip dated 02/07/2022. The skeletal structures are osteopenic. A left hip arthroplasty is in near-anatomic alignment. No acute fracture is seen. Skin clips and soft tissue edema overlying the left hip are expected postoperative findings. IMPRESSION: Expected postoperative findings related to recent left hip arthroplasty. No acute bony abnormality is seen. Electronically signed by: Berto Snow M.D. 02/20/2022 11:19 AM Medications Administered Current Inpatient Medications Acetaminophen (Acetaminophen 500 Mg Tab) 500 mg PO Q6H PRN PRN Reason: Mild Pain Stop: 03/21/22 01:05 Aripiprazole (Aripiprazole 1 Mg/Ml Oral Soln 150 Ml Btl) 2 mg PO HS ANGELLA Stop: 03/21/22 20:59 Last Admin: 02/19/22 22:32 Dose: 2 mg Aspirin (Aspirin 81 Mg Ectab) 81 mg PO DAILY ANGELLA Stop: 03/21/22 08:59 Last Admin: 02/20/22 09:26 Dose: Not Given Atorvastatin Calcium (Atorvastatin 40 Mg Tab) 40 mg PO DAILY ANGELLA Stop: 03/21/22 08:59 Last Admin: 02/20/22 09:27 Dose: Not Given Clonazepam (Clonazepam 0.5 Mg Tab) 0.5 mg PO Q8 PRN PRN Reason: anxiety/agitation Stop: 03/21/22 15:14 Dextrose (Dextrose 50% 50 Ml Syringe) 25 - 50 ml IV UD PRN; Protocol PRN Reason: Hypoglycemia Protocol Stop: 03/21/22 01:05 Docusate Sodium (Docusate Sodium 100 Mg Cap) 100 mg PO BID ANGELLA Stop: 03/21/22 08:59 Last Admin: 02/20/22 09:27 Dose: Not Given Enoxaparin Sodium (Enoxaparin Inj 30 Mg/0.3 Ml Syr) 30 mg SQ Q12H ANGELLA Stop: 03/08/22 23:59 Last Admin: 02/20/22 09:27 Dose: Not Given Ergocalciferol (Ergocalciferol 50,000 Units 1250 Mcg Cap) 50,000 units PO Th@0900 ANGELLA Stop: 03/23/22 08:59 Gabapentin (Gabapentin 300 Mg Cap) 300 mg PO BID ANGELLA Stop: 03/21/22 20:59 Last Admin: 02/20/22 09:27 Dose: Not Given Glucagon (Glucagon For Inj 1 Mg Vial) 1 mg SQ UD PRN; Protocol PRN Reason: Hypoglycemia Protocol Stop: 03/21/22 01:05 Glucose (Glucose 40% Gel 15 Gm Tube) 15 - 30 gm PO UD PRN; Protocol PRN Reason: Hypoglycemia Protocol Stop: 03/21/22 01:05 Glucose (Glucose 10 Tab/Tube) 4 - 8 tab PO UD PRN; Protocol PRN Reason: Hypoglycemia Treatment Stop: 03/21/22 01:05 Insulin Aspart (Insulin Aspart Per Unit) 0 units SC ACHS ANGELLA Stop: 03/21/22 01:05 Last Admin: 02/20/22 08:54 Dose: Not Given Insulin Glargine (Lantus Per Unit Charge) 15 units SQ BID ANGELLA Stop: 03/21/22 20:59 Last Admin: 02/20/22 09:27 Dose: Not Given Lactulose (Lactulose Syrup 30 Gm/45 Ml Udp) 30 gm PO BID ANGELLA Stop: 03/21/22 08:59 Last Admin: 02/20/22 09:27 Dose: Not Given Lamotrigine (Lamotrigine 25 Mg Tab) 75 mg PO QAM ANGELLA Stop: 03/21/22 08:59 Last Admin: 02/20/22 09:27 Dose: Not Given Lamotrigine (Lamotrigine 100 Mg Tab) 100 mg PO QAM ANGELLA Stop: 03/21/22 08:59 Last Admin: 02/20/22 09:27 Dose: Not Given Levothyroxine Sodium (Levothyroxine Sodium 88 Mcg Tablet) 88 mcg PO DAILYBB [facility] Stop: 03/21/22 06:29 Last Admin: 02/20/22 05:51 Dose: 88 mcg Metoprolol Succinate (Metoprolol Succ 25mg Ext Rel Tab) 25 mg PO DAILY ANGELLA Stop: 03/21/22 08:59 Last Admin: 02/20/22 09:27 Dose: Not Given Miscellaneous (Carbohydrates For Hypoglycemia ) 15 - 30 gm PO UD PRN PRN Reason: Hypoglycemia Protocol Stop: 03/21/22 01:05 Montelukast Sodium (Montelukast Sodium 10 Mg Tablet) 10 mg PO PM ANGELLA Stop: 03/21/22 20:59 Last Admin: 02/19/22 22:34 Dose: 10 mg Oxybutynin Chloride (Oxybutynin Chloride Xl 5 Mg Tabcr) 10 mg PO DAILY ANGELLA Stop: 03/21/22 08:59 Last Admin: 02/20/22 09:27 Dose: Not Given Oxycodone HCl (Oxycodone Hcl Ir 5 Mg Tab (Immediate Release)) 5 mg PO Q8 PRN PRN Reason: Severe Pain Stop: 03/05/22 03:16 Pantoprazole Sodium (Pantoprazole 40 Mg Tab) 40 mg PO QAM [facility] Stop: 03/21/22 08:59 Last Admin: 02/20/22 09:27 Dose: Not Given Rifaximin (Rifaximin 550 Mg Tablet) 550 mg PO BID ANGELLA Stop: 03/21/22 08:59 Last Admin: 02/20/22 09:28 Dose: Not Given Senna/Docusate Sodium (Docusate Sodium/Senna 50/8.6mg Tab) 1 tab PO DAILY PRN PRN Reason: Constipation Stop: 03/21/22 03:12 Spironolactone (Spironolactone 25 Mg Tab) 25 mg PO BID ANGELLA Stop: 03/21/22 20:59 Last Admin: 02/20/22 09:28 Dose: Not Given Tamsulosin HCl (Tamsulosin Hcl 0.4 Mg Cap) 0.4 mg PO DAILY ANGELLA Stop: 03/21/22 08:59 Last Admin: 02/20/22 09:28 Dose: Not Given Torsemide (Torsemide 10 Mg Tab) 10 mg PO BID ANGELLA Stop: 03/21/22 20:59 Last Admin: 02/20/22 09:28 Dose: Not Given Venlafaxine HCl (Venlafaxine Hcl Xr 75 Mg Capxr) 225 mg PO DAILY ANGELLA Stop: 03/21/22 08:59 Last Admin: 02/20/22 09:28 Dose: Not Given
[2022-02-20] MEDS: ACETAMINOPHEN 500 MG TAB PO PRN (13:20)
[2022-02-20 13:29] LABS: Hematocrit (blood only) 26.8 % (34.1-44.9); Hemoglobin 8.6 g/dl (12.0-16.0); Mean Corpuscular Hemoglobin 25.4 pg (25.0-34.0); Mean Corpuscular Hgb Conc 32.1 g/dL (32.0-36.0); Mean Corpuscular Volume 79.1 fL (80.0-100.0); Mean Platelet Volume 9.4 fL (9.4-12.3); Platelet Count 252 K/uL (130-400); RDW Coefficient of Variation 20.3 % (11.5-14.5); RDW Standard Deviation 54.5 fL (36.4-46.3); Red Blood Count 3.39 M/uL (3.93-5.22); White Blood Count 5.64 K/ul (4.8-10.8)
[2022-02-20 13:41] LABS: INR 1.5 (0.9-1.1)
[2022-02-20 14:08] LABS: Albumin Globulin Ratio 0.8 (0.9-2); Albumin Level 2.8 gm/dl (3.4-5.0); BUN Creatinine Ratio 10.5 (10-20); Bilirubin,Total 1.6 mg/dl (0.2-1.0); Calcium 8.6 mg/dl (8.5-10.1); Creatinine Clr Calc Pharmacy 63.1 ml/min; Est GFR (African American) 61.4 ml/min; Globulin 3.5 gm/dl (2.5-4.0); Potassium 3.9 mmol/L (3.5-5.1); Total Protein 6.3 gm/dl (6.0-8.3)
[2022-02-20] MEDS: ARIPIprazole 1 MG/ML ORAL SOLN 150 ML BTL PO SCH (22:13)
[2022-02-20] MEDS: MONTELUKAST SODIUM 10 MG TABLET PO SCH (22:15)
[2022-02-21] MEDS: LEVOTHYROXINE SODIUM 88 MCG TABLET PO SCH (05:38)
--- NOTE | 2022-02-21 08:18 | Orthopedic Progress Note ---
Date of Service February 21, 2022 Assessment & Plan (1) Left hip pain: Plan: POD 15 - s/p left hip hemiarthroplasty with Dr. Cha on 02/05/22. She may be weight bearing as tolerated with the assistance of a walker Ice to left hip as needed for pain/swelling. Corbett removed today, steri-strips applied left hip incision. Abduction pillow between legs when in bed, standard pillow between knees when sitting in chair. Lovenox 30mg BID and Scott stockings for DVT prophylaxis. Walker to assist with ambulation. PT/OT as ordered. Follow up with Dr. Cha as scheduled. Admission and Anticipated Discharge Date Admission Date: February 19, 2022 Subjective Patient sitting in bed, eating breakfast. Pleasant and oriented to person, place and time. She denies pain in her left hip. Physical Exam Musculoskeletal: Left hip incision clean, dry and intact. Healing nicely. Alejandra removed, steri-strips applied. No surrounding hematoma or seroma left buttock. Surrounding around nontender with palpation. Tolerates active and passive ROM left hip without pain. Minimal distal edema. Foot drop and decreased sensation left foot normal for her. Distal pulse 1+ Results & Data ([facility]) Vital Signs (Past 12 Hours) Vital Signs Temp Pulse Resp BP Pulse Ox O2 Del Method 02/21/22 08:07 37.2 C 77 16 108/64 98 Room Air 02/20/22 23:17 36.8 C 70 20 119/74 96 Room Air Diagnostic Findings LEFT HIP 2 VIEWS CLINICAL HISTORY: Postoperative examination. Pain. FINDINGS: AP and frog-leg views of the left hip are compared to study dated 02/05/[address] of the left hip dated 02/07/2022. The skeletal structures are osteopenic. A left hip arthroplasty is in near-anatomic alignment. No acute fracture is seen. Skin clips and soft tissue edema overlying the left hip are expected postoperative findings. IMPRESSION: Expected postoperative findings related to recent left hip arthropla sty. No acute bony abnormality is seen.
[2022-02-21] MEDS: ACETAMINOPHEN 500 MG TAB PO PRN (08:25)
[2022-02-21] MEDS: ASPIRIN 81 MG ECTAB PO SCH (08:25)
[2022-02-21] MEDS: VENLAFAXINE HCL XR 75 MG CAPXR PO SCH (08:26)
[2022-02-21] MEDS: TAMSULOSIN HCL 0.4 MG CAP PO SCH (08:26)
[2022-02-21] MEDS: rifAXIMin 550 MG TABLET PO SCH (08:26)
[2022-02-21] MEDS: OXYBUTYNIN CHLORIDE XL 5 MG TABCR PO SCH (08:27)
[2022-02-21] MEDS: SPIRONOLACTONE 25 MG TAB PO SCH (08:27)
[2022-02-21] MEDS: PANTOprazole 40 MG TAB PO SCH (08:27)
[2022-02-21] MEDS: METOPROLOL SUCC 25MG EXT REL TAB PO SCH (08:27)
[2022-02-21] MEDS: lamoTRIgine 25 MG TAB PO SCH (08:28)
[2022-02-21] MEDS: lamoTRIgine 100 MG TAB PO SCH (08:28)
[2022-02-21] MEDS: ATORVASTATIN 40 MG TAB PO SCH (08:29)
[2022-02-21] MEDS: TORSEMIDE 10 MG TAB PO SCH (08:29)
[2022-02-21] MEDS: LACTULOSE SYRUP 30 GM/45 ML UDP PO SCH (08:30)
[2022-02-21] MEDS: GABAPENTIN 300 MG CAP PO SCH (08:30)
[2022-02-21] MEDS: ENOXAPARIN INJ 30 MG/0.3 ML SYR SQ SCH (08:31)
[2022-02-21] MEDS: LANTUS PER UNIT CHARGE SQ SCH (08:41)
[2022-02-21] MEDS: INSULIN ASPART PER UNIT SC SCH ×2 (08:41→13:27)
[2022-02-21] MEDS: DOCUSATE SODIUM 100 MG CAP PO SCH (08:45)
[2022-02-21] MEDS ORDERED: ERGOCALCIFEROL 50,000 UNITS 1250 MCG CAP PO SCH (09:00)
--- NOTE | 2022-02-21 13:17 | Discharge Summary ---
Date of Service February 21, 2022 Admission HPI Per Admitting Provider History obtained from patient and records. Limited history from patient secondary disorientation. Medical history significant for chronic diastolic heart failure (EF 55 to 59%, TTE 09/2021),CAD status post CABG/stent, moderate , hypertension, hyperlipidemia, bipolar disorder/OCD, DM2 insulin requiring, chronic pain on narcotics, Lydeasr-Lusqr-Dsfxg disorder, cirrhosis secondary to NAFLD, chronic hyponatremia, history of MRSA/VRE, history ESBL E. coli UTI ongoing ertapenem Rx, history DVT as per records, left hip fracture status post recent surgery, postop anemia (baseline hemoglobin of 8) Last confinement February 05 to 2021 for traumatic left hip fracture status post surgery. Patient also completed antibiotic course for ESBL E. coli UTI initiated outpatient prior to injury. Patient discharged to [facility] facility. Patient noted to be confused at rehab facility last night. Patient denies chest pain, shortness of breath. Admits to generalized weakness. No abdominal pain, no dysuria complaints. No headache. Patient brought to the ER for evaluation. Meropenem administered for UTI. MEDICAL HISTORY: As above. SURGERIES: CABG, cholecystectomy, appendectomy, back surgery, hysterectomy, knee surgery, CARLOS, left hip fracture surgery FAMILY HISTORY: Family history of heart disease, alcoholism PERSONAL AND SOCIAL HISTORY: Nonsmoker, no chronic intake of alcoholic beverages, disabled. Principal Diagnosis Polypharmacy Discharge Exam CONSTITUTIONAL: WNWD, vitals as above, generally well-appearing, NAD EYES: normal conjunctivae, no scleral icterus ENT: external ear and nose normal, MMM NECK: trachea midline RESPIRATORY: clear to auscultation bilaterally, no crackles, rales or wheezes, normal respiratory effort CARDIOVASCULAR: regular rate and rhythm, S1 and 2 heard without murmurs, gallops or rubs, no JVD, no peripheral edema CHEST: inspection of chest was normal GASTROINTESTINAL: soft, nontender, obese, no guarding MUSCULOSKELETAL: moves upper extremities equally, wound vac in place to LLE, head is normocephalic and atraumatic SKIN: warm and dry, wound vac in place to left hip. NEUROLOGIC: CN 2-12 grossly intact, no sensory deficit in lower extremities, normal cognition, normal speech, no tremor Discharge Data Allergies Allergy/AdvReac Type Severity Reaction Status Date / Time propoxyphene Allergy Intermediate Rash Verified 02/19/22 02:20 fentanyl AdvReac Intermediate PANIC Verified 02/19/22 02:20 WANTS TO RUN AND AGGRESSIVE methocarbamol AdvReac Intermediate DELERIUM Verified 02/19/22 02:20 zolpidem AdvReac Intermediate confusion Verified 02/19/22 02:20 Consultations 02/19/22 00:25 ED Decision to Admit Stat 02/19/22 09:24 Consult Pain Management Routine Ordered Studies 02/19/22 00:58 CT head/brain wo con Urgent Hospital Course (1) Encephalopathy: Recurrent UTIs Polypharmacy (patient on multiple neuropsychotropic and narcotic medications.) We have held patient's morphine sulfate patient is doing well pain is controlled and tolerated. Continue with oxycodone as needed dosing. Troponin elevation secondary to illness chronic diastolic heart failure (EF 55 to 59%, TTE 09/2021), patient on the dry side hx CAD status post CABG/stent Moderate hypertension, stable hyperlipidemia, on statin Rx bipolar disorder/OCD, at baseline DM2 insulin requiring, well-controlled as of recent hemoglobin A1c of 11 December 2021 History ambulatory dysfunction/Agatpcs-Pitwt-Giqpi disease chronic hyponatremia Postop anemia, hemoglobin stable at 8 history ESBL E. coli UTI ongoing Ertapenem Rx past history DVT as per records Urine culture negative and recently completed 10 days of carbapenem-stopped merrem restart and doing well. cont to hold long activng morphine and utilize oxycodone and clonazepam only as needed. Per PM consultation may consider a long acting pain patch as outpatient. cont Abilify/Lamictal/gabapentin/effexor per home regimen. Cont current insulin therapy, BSG at goal. Dr. Cha to perform post op check of wound while she is here. DVT prophylaxis. Lovenox as per postop orthopedic orders. Full code as per patient's prior directives. Total Time Total Time Spent Total Time Spent (In Minutes): 35 minutes Discharge Plan Discharge Items Patient Disposition: Transfer Alf Fac Reason For Visit: AMS, COMP UTI, TROP ELEV Discharge Diagnosis: polypharmacy Condition on Discharge: Fair Activity: Resume your previous activity Weightbearing: Full weightbearing Weightbearing Comment: with walker assistance Non-emergency contact: Surgeon Call non-emergency contact if: you have any medication questions, your symptoms worsen, your pain is not controlled, your temperature is above 101, your wound has increased redness and your wound has increased drainage Follow-up/Referrals: Brian Domínguez MD [Primary Care Provider] - Ivan Cha MD [Surgeon] - 03/25/22 12:30 pm Diet: Heart Healthy Addtl Attending Provider Instructions: Avoid excessive narcotic use Addtl Boat Puller Provider Instructions: Left hip posterior precautions at all times. Ice to left hip as needed for pain/swelling. elevate left leg as needed for pain/swelling. Keep abduction pillow between legs when in bed, use standard pillow between knees when sitting in chair. Use walker to assist with ambulation at all times. PT/OT Continue Lovenox until instructed to stop by Dr. Cha. Plans to continue until next follow up appointment. You may shower or bathe as tolerated. Okay to get incision wet. Keep steri-strips in place for 5-7 days. Placed on 02/21/22. Follow up with Dr. Cha as scheduled. Pending Studies at Discharge: No Stand-Alone Forms: My [facility] Skilled Items Patient informed of condition?: Yes DNR: No Discharge Level of Care: Skilled Communicable Disease: No Discharge Prognosis: Stable Lines: None Urinary Catheter: No Medications and DC Order Prescriptions: Continued atorvastatin 40 mg Tablet 40 mg PO DAILY acetaminophen [Tylenol] 325 mg Tablet 650 mg PO Q4 PRN (Reason: .PAIN 1-3) insulin glargine 100 unit/mL Solution 10 unit SUBCUT Q12 torsemide 20 mg Tablet 20 mg PO BID sennosides-docusate sodium [Senokot-S] 8.6-50 mg Tablet 1 tab-cap PO DAILY PRN (Reason: Constipation) Rx Instructions: GIVE DAILY @ LUNCH PRN spironolactone [Aldactone] 25 mg Tablet 25 mg PO BID lamotrigine 25 mg tablet 75 mg PO QAM levothyroxine 88 mcg tablet 88 mcg PO DAILY levothyroxine 88 mcg tablet 88 mcg PO QAM magnesium hydroxide [Milk of Magnesia] 400 mg/5 mL Suspension 30 ml PO DAILY PRN (Reason: Constipation) tamsulosin 0.4 mg Capsule 0.4 mg PO DAILY dicyclomine 20 mg Tablet 10 mg PO QID PRN (Reason: .IRRITABLE BOWEL) pantoprazole 40 mg Tablet,Delayed Release (Dr/Ec) 40 mg PO QAM Humulin R Regular U-100 Insuln 100 unit/mL Solution 1 sliding scale dose SUBCUT ACHS Rx Instructions: 70-130=0 UNITS, 131-180=2 UNITS, 181-240=4 UNITS, 241-300=6 UNITS, 301-350= 8 NITS, 351-400= 10 UNITS, >400=12 UNITS docusate sodium 100 mg Capsule 100 mg PO BID oxybutynin chloride 5 mg Tablet Extended Release 24hr 10 mg PO DAILY gabapentin 300 mg capsule 300 mg PO BID montelukast 10 mg Tablet 10 mg PO DAILY metoprolol succinate 25 mg Tablet Extended Release 24 Hr 25 mg PO DAILY ergocalciferol (vitamin D2) [Vitamin D2] 1,250 mcg (50,000 unit) Capsule 1,250 mcg PO .QTHUR lamotrigine [Lamictal] 100 mg Tablet 100 mg PO QAM oxycodone 5 mg tablet 5 mg PO Q8 PRN (Reason: Pain) enoxaparin 30 mg/0.3 mL Syringe 30 mg SUBCUT Q12H Rx Instructions: STOP 03/08/22 sodium chloride 0.9 % (flush) [Normal Saline Flush] Syringe 5 ml IV Q8H Rx Instructions: administer before and after IV drug administration as part of [facility] protocol Xifaxan 550 mg Tablet 550 mg PO BID Trulicity 4.5 mg/0.5 mL pen injector 4.5 mg SUBCUT WK Rx Instructions: GIVE Q MON. Lactulose 30g=45ml 45 ml PO BID venlafaxine 75 mg capsule,extended release 24hr 225 mg PO DAILY clonazepam 0.5 mg Tablet 0.5 mg PO Q8 aspirin [Aspir-81] 81 mg Tablet,Delayed Release (Dr/Ec) 81 mg PO DAILY ascorbic acid (vitamin C) [Vitamin C] 500 mg Tablet 500 mg PO BID estradiol [Estrace] 0.01 % (0.1 mg/gram) Cream 1 g VAGINAL HS albuterol sulfate 90 mcg/actuation Hfa Aerosol Inhaler 2 puff INHALATION QID PRN (Reason: .wheezing) aripiprazole 2 mg Tablet 2 mg PO HS No Action morphine 15 mg tablet extended release 15 mg PO Q12 Discharge Orders: Discharge Order (Routine); Ordered 02/21/22 Ordered By: Leonard Ann Admission Data Admit Date/Time: 02/19/22 00:56 Attending Provider: Leonard Ann Admit Provider: Justino Velazquez Primary Care Provider: Brian Domínguez Other Providers: Justino Velazquez ; Andie Vasquez ; [facility] ; Cristiane Mo
== END 2022-02-21 17:45 | DRG 690 ==
LOC: ED 22:31 → SUATTDRO 02-19 00:56 → EDINP 02-19 00:56 → 2W 02-19 01:06

== ENCOUNTER 2023-02-01 15:25 | Inpatient (IN) ==
[2023-02-01] MEDS ORDERED: ONDANSETRON INJ 2 MG/ML 2 ML VIAL IV STA (16:23)
[2023-02-01] MEDS ORDERED: SODIUM CHLORIDE 0.9% 500 ML IV STA (16:23)
[2023-02-01] MEDS ORDERED: fentaNYL citrate PF 100 MCG/2 ML VIAL IV PRN (16:23)
--- NOTE | 2023-02-01 16:32 | Emergency Department Note ---
Impression & Plan Femoral distal fracture, Fall ED Provider Note NAME: GILES SLOAN AGE: 72 SEX: F : 1950 ARRIVES VIA: Ambulance INFORMANT: Patient, ED PROVIDER(S): Venkat Guerrero DO CHIEF COMPLAINT: Leg pain HPI: The patient is a 72-year-old female who presented to the emergency department for an evaluation of left hip pain. The patient states that she twisted and fell but she felt her left thigh become painful prior to the fall. She does not heart fall. She was helped to the ground by family member. She did not strike her head. She denies having any back pain. She denies having any headache or neck pain. Patient does have a history of previous surgery to the left hip. The patient states her pain is moderate to severe. ROS: See above HPI for pertinent positives & negatives. A total of 10 systems reviewed and were otherwise negative. PAST MEDICAL HISTORY: See Below PAST SURGICAL HISTORY: See Below FAMILY HISTORY: See Below SOCIAL HISTORY: See Below HOME MEDICATIONS: See Below ALLERGIES: See Below VITALS: See Below PHYSICAL EXAMINATION: GENERAL: The patient is awake and alert. Patient is very anxious and appears to be in significant pain. EYES: The conjunctivae are clear. The pupils are round and reactive. EARS, NOSE, MOUTH AND THROAT: The nose is without any evidence of any deformity. NECK: The neck is nontender and supple. RESPIRATORY: Normal respiratory effort is noted there is no evidence of wheezing rhonchi or rales CARDIOVASCULAR: Regular rate and rhythm noted there no murmurs rubs or gallops normal S1 normal S2. GASTROINTESTINAL: The abdomen is soft. Abdomen is nontender. BACK: No midline tenderness or or step-off noted range of motion in flexion extension as well as rotation no signs of muscle spasm noted MUSCULOSKELETAL/EXTREMITIES: There is significant tenderness to the left thigh. There is tenderness over the left knee as well as range of motion testing left hip. There is no pain or deformity over the left lower leg or left foot.. SKIN: There is no obvious evidence of any rash. There are no petechiae, pallor or cyanosis noted. NEUROLOGIC: Patient is awake alert and oriented x3. MEDICAL DECISION MAKING: The patient is a 72-year-old female who presented to the emergency department after injuring her left leg. The patient's pain was mostly over the left knee. She has a history of left hip replacement in the past. The patient was treated with IV pain medication in the emergency department. She was reevaluated multiple times. I discussed the patient's laboratory and radiographic studies with her. I also discussed her condition with her family members as well. The patient was found to have a distal femur fracture. I discussed her condition with the on-call orthopedic group as well as the on-call [facility] hospitalist. They have agreed to evaluate the patient for further management and disposition. Triage Nursing notes reviewed. Prior medical records reviewed Vital Signs: reviewed and remarkable for no significant abnormalities Differential diagnosis: Fracture, dislocation, contusion, intra-abdominal, pneumothorax, intrathoracic, intracranial, neurologic, compartment syndrome, rhabdomyolysis, as well as other pathologies. ER treatment provided: See below Diagnostics interpreted by me: ECG: none Cardiac Monitoring: An order was placed for continuous cardiac monitoring. The monitor shows a rate of 80 bpm with sinus rhythm. Laboratory studies: As stated above and show below. Imaging studies: See below. Radiographic imaging was reviewed by myself Consultation(s): I discussed this case with Dr. Dumont who is on-call for the [facility]. I discussed this case with Dr Ruiz for Ortho Past Med/Surg History Medical History Anxiety Bipolar disorder CAD (coronary artery disease) History of multiple PCI's to the RCA with subsequent CABG x1 in 2010 x 1 vess el Most recent cardiac testing-negative DSE in December 2017 Follows w/ Dr. Blackwell and Dr. Lucas Cardiac arrest pt states she was told she went into cardiac arrest during her hip surgery in 02/2022 at [facility] and was "revived". no other details were given. Djdkxkm-Utrls-Igbky disease follows w/ Dr. Lemus LEG WEAKNESS CURRENT PT/OT FOR - BRACES B/L LEGS Chronic diastolic CHF (congestive heart failure) Chronic low back pain Chronic pain syndrome Cough started about 8 months ago s/p covid-19 virus -- currently treating with augmentin PO bid and prednisone. prednisone to end 05/27/22 and abx to finish on 06/01/22 Depression DM type 2 (diabetes mellitus, type 2) IDDM Dyslipidemia Encephalopathy d/c from [facility] 09/20/19 (hepatic encephalopathy) Gastroparesis GERD (gastroesophageal reflux disease) History of anesthesia reaction REMOTE HX, SIDE EFFECTS : ANXIETY AND SEVERE N/V History of COVID-19 may or june 2021, has cough since. Hx of fall pt. fell in the bathroom at home, pt. wasn't aware of what happen but was told this by her family 02/05/2022 Hypertension Hypothyroidism Irregular heart beat follows Dr. 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 Portal hypertensive gastropathy SOB (shortness of breath) SINCE COVID -8 MON AGO, SOB, COUGH...NO DX...HAS VISIT WITH PULM UPCOMING TO EVALUATE Spondylosis Urinary incontinence UTI (urinary tract infection) FREQUENT/PREVENTATIVE ABX'S CURRENTLY MOST RECENT UTI JANUARY 04 - ABX COMPLETE - ON CURRENT PROPHYLACTIC TX Surgical History History of appendectomy History of back surgery sacral area History of cardiac cath multiple - most recent - 2 years ago @ [facility] History of cataract surgery RT History of colonoscopy History of esophagogastroduodenoscopy (EGD) History of heart artery stent 2 yrs ago @ [facility] > 6 or 7 stents > follows Dr. Lucas History of left hip replacement 02/05/2022 History of total right knee replacement Hx of cholecystectomy S/P CABG x 1 2010 - single vessel S/P CARLOS (total abdominal hysterectomy) Family History Father Coronary heart disease Brother Coronary heart disease Father No problems noted. Mother No problems noted. Other No family history of adverse response to anesthesia Social History Smoking Status: Former smoker Tobacco Type: Cigarettes Second Hand Exposure: Yes; Do You Dip or Chew Tobacco: No; Hx Alcohol Use: No Hx Substance Use: No Preferred Language: Armenian Communication Ability: Effective Communication Ability Comment: PT STARTS PHONE CALL - PT GIVES PHONE TO DAUGHTER SACHI TO DO PHONE CALL Supervisor Nut Processing Required: No Beliefs That Will Affect Care: None marital status: / Current Living Situation: Alone How many Children do You have: 0 Feels Safe at Home: Yes Assistive Devices: Brace/Splint/Immobilizer and Walker Allergies Allergies Allergy/AdvReac Type Severity Reaction Status Date / Time propoxyphene Allergy Intermediate Rash Verified 02/01/23 16:28 fentanyl AdvReac Intermediate PANIC Verified 02/01/23 16:28 WANTS TO RUN AND AGGRESSIVE methocarbamol AdvReac Intermediate DELERIUM Verified 02/01/23 16:28 zolpidem AdvReac Intermediate confusion Verified 02/01/23 16:28 Home Meds Home Medications Medication Instructions Recorded Confirmed acetaminophen 325 mg tablet 650 mg PO Q4 PRN Pain (Scale Score 02/19/22 02/01/23 (Tylenol) 1-3) albuterol sulfate 90 mcg/actuation 2 puff inhalation QID PRN Wheezing 02/19/22 02/01/23 aerosol inhaler aripiprazole 2 mg tablet 2 mg PO QAM 02/19/22 02/01/23 ascorbic acid (vitamin C) 500 mg 500 mg PO BID 02/19/22 02/01/23 tablet (Vitamin C) aspirin 81 mg tablet,delayed 81 mg PO QAM 02/19/22 02/01/23 release atorvastatin 40 mg tablet 40 mg PO QAM 02/19/22 02/01/23 clonazepam 0.5 mg tablet 0.5 mg PO TID 02/19/22 02/01/23 dicyclomine 20 mg tablet 10 mg PO QID PRN ABD PAIN 02/19/22 02/01/23 dulaglutide 4.5 mg/0.5 mL 4.5 mg subcut WK 02/19/22 02/01/23 subcutaneous pen injector (Trulicity) ergocalciferol (vitamin D2) 1,250 1,250 mcg PO WK 02/19/22 02/01/23 mcg (50,000 unit) capsule (Vitamin D2) estradiol 0.01% (0.1 mg/gram) 1 g vaginal HS 02/19/22 02/01/23 vaginal cream (Estrace) gabapentin 300 mg capsule 300 mg PO BID 02/19/22 02/01/23 lamotrigine 100 mg tablet 100 mg PO QAM 02/19/22 02/01/23 (Lamictal) lamotrigine 25 mg tablet (Lamictal) See Rx Instructions .Route .COMPLEX 02/19/22 02/01/23 levothyroxine 88 mcg tablet 88 mcg PO QAM 02/19/22 02/01/23 metoprolol succinate 25 mg 25 mg PO QAM 02/19/22 02/01/23 tablet,extended release 24 hr montelukast 10 mg tablet 10 mg PO QAM 02/19/22 02/01/23 oxycodone 5 mg tablet 5 mg PO Q8 PRN Pain 02/19/22 02/01/23 pantoprazole 40 mg tablet,delayed 40 mg PO BID 02/19/22 02/01/23 release rifaximin 550 mg tablet (Xifaxan) 550 mg PO BID 02/19/22 02/01/23 tamsulosin 0.4 mg capsule 0.4 mg PO QAM 02/19/22 02/01/23 venlafaxine 75 mg capsule,extended 75 mg PO QAM 02/19/22 02/01/23 release 24 hr (Effexor XR) insulin glargine 100 unit/mL (3 30 unit subcut BID 04/09/22 02/01/23 mL) subcutaneous pen (Basaglar KwikPen U-100 Insulin) budesonide-formoterol HFA 160 2 inh inhalation BID 05/24/22 02/01/23 mcg-4.5 mcg/actuation aerosol inhaler (Symbicort) lactulose 10 gram/15 mL oral 45 g PO BID 05/24/22 02/01/23 solution torsemide 20 mg tablet 20 mg PO QAM 05/24/22 02/01/23 trazodone 50 mg tablet 50 mg PO HS 05/24/22 02/01/23 famotidine 40 mg tablet 40 mg PO DAILY 12/26/22 02/01/23 fluticasone propionate 50 2 spray intranasal DAILY PRN 12/26/22 02/01/23 mcg/actuation nasal Congestion spray,suspension ipratropium 0.5 mg-albuterol 3 mg 3 ml inhalation QID 12/26/22 02/01/23 (2.5 mg base)/3 mL nebulization soln metformin 500 mg tablet,extended 500 mg PO QDD 12/26/22 02/01/23 release 24 hr methenamine hippurate 1 gram tablet 1 g PO BID 12/26/22 02/01/23 morphine 15 mg tablet,extended 15 mg PO HS PRN Severe Pain (Scale 12/26/22 02/01/23 release Score 7-10) nitroglycerin 0.4 mg sublingual 0.4 mg sublingual DIRECTED PRN 12/26/22 02/01/23 tablet (Nitrostat) Chest Pain ondansetron HCl 8 mg tablet 8 mg PO Q8H PRN NAUSEA/VOMITING 12/26/22 02/01/23 potassium chloride 20 mEq 20 meq PO DAILY 12/26/22 02/01/23 tablet,extended release(part/cryst) (Klor-Con M) spironolactone 50 mg tablet 50 mg PO BID 12/26/22 02/01/23 sucralfate 1 gram tablet 1 g PO QAM 12/26/22 02/01/23 tiotropium bromide 2.5 2 inh inhalation QAM 12/26/22 02/01/23 mcg/actuation mist for inhalation (Spiriva Respimat) venlafaxine 150 mg 150 mg PO QAM 12/26/22 02/01/23 capsule,extended release 24 hr diclofenac sodium 1 % topical gel 2 g topical BID PRN Pain 02/01/23 02/01/23 levofloxacin 500 mg tablet 500 mg PO QAM 02/01/23 02/01/23 nystatin 100,000 unit/gram topical 1 applic topical TID 02/01/23 02/01/23 powder (Nyamyc) nystatin 100,000 unit/mL oral 5 ml mucous membrane QID 02/01/23 02/01/23 suspension oxybutynin chloride 10 mg 10 mg PO QAM 02/01/23 02/01/23 tablet,extended release 24 hr Results & Data (ED) Vital Signs Vital Signs - 24 hr 02/01/23 15:36 02/01/23 15:36 02/01/23 15:58 Temperature 36.8 C 36.8 C Temperature Source Oral Oral Pulse Rate 86 84 Pulse Rate [Right Finger] 85 Pulse Rate from SpO2 Sensor Pulse Rhythm Regular Pulse Rhythm [Right Finger] Regular Pulse Strength Normal Pulse Strength [Right Finger] Normal Respiratory Rate 18 18 Respiratory Effort / Characteristics Non-Labored Spontaneous Non-Labored Spontaneous Respiratory Depth Normal Normal Respiratory Pattern Regular Regular Blood Pressure 103/75 Blood Pressure [Right Arm] 103/75 Blood Pressure Mean 84 Blood Pressure Mean [Right Arm] 84 Blood Pressure Position Semi-fowlers Blood Pressure Position [Right Arm] Semi-fowlers Pulse Oximetry 98 98 Oxygen Delivery Method Room Air Room Air Sepsis Recent Fever Within 48 Hours No Sepsis New/Unexplained Change in Mental Status No Sepsis Action Taken by Nursing No Action Required 02/01/23 16:23 02/01/23 17:11 02/01/23 17:00 Temperature 36.8 C Temperature Source Oral Pulse Rate 79 82 Pulse Rate [Right Finger] 81 Pulse Rate from SpO2 Sensor Pulse Rhythm Pulse Rhythm [Right Finger] Regular Pulse Strength Pulse Strength [Right Finger] Normal Respiratory Rate 20 18 24 Respiratory Effort / Characteristics Non-Labored Spontaneous Respiratory Depth Normal Respiratory Pattern Regular Blood Pressure 138/76 Blood Pressure [Right Arm] 138/76 Blood Pressure Mean 96 Blood Pressure Mean [Right Arm] 96 Blood Pressure Position Blood Pressure Position [Right Arm] Semi-fowlers Pulse Oximetry 97 93 92 Oxygen Delivery Method Room Air Room Air Sepsis Recent Fever Within 48 Hours Sepsis New/Unexplained Change in Mental Status Sepsis Action Taken by Nursing 02/01/23 19:30 02/01/23 20:34 02/01/23 19:38 Temperature Temperature Source Pulse Rate 85 96 H Pulse Rate [Right Finger] Pulse Rate from SpO2 Sensor Pulse Rhythm Pulse Rhythm [Right Finger] Pulse Strength Pulse Strength [Right Finger] Respiratory Rate Respiratory Effort / Characteristics Respiratory Depth Respiratory Pattern Blood Pressure 122/91 122/91 Blood Pressure [Right Arm] Blood Pressure Mean 101 103 Blood Pressure Mean [Right Arm] Blood Pressure Position Blood Pressure Position [Right Arm] Pulse Oximetry 92 93 Oxygen Delivery Method Room Air Room Air Room Air Sepsis Recent Fever Within 48 Hours Sepsis New/Unexplained Change in Mental Status Sepsis Action Taken by Nursing 02/01/23 20:00 02/01/23 20:00 02/01/23 20:10 Temperature Temperature Source Pulse Rate 96 H Pulse Rate [Right Finger] Pulse Rate from SpO2 Sensor 99 H 101 H Pulse Rhythm Pulse Rhythm [Right Finger] Pulse Strength Pulse Strength [Right Finger] Respiratory Rate Respiratory Effort / Characteristics Respiratory Depth Respiratory Pattern Blood Pressure 124/69 Blood Pressure [Right Arm] Blood Pressure Mean 96 Blood Pressure Mean [Right Arm] Blood Pressure Position Blood Pressure Position [Right Arm] Pulse Oximetry 93 92 93 Oxygen Delivery Method Room Air Sepsis Recent Fever Within 48 Hours Sepsis New/Unexplained Change in Mental Status Sepsis Action Taken by Nursing 02/01/23 20:20 02/01/23 20:30 Temperature Temperature Source Pulse Rate Pulse Rate [Right Finger] Pulse Rate from SpO2 Sensor 102 H 102 H Pulse Rhythm Pulse Rhythm [Right Finger] Pulse Strength Pulse Strength [Right Finger] Respiratory Rate Respiratory Effort / Characteristics Respiratory Depth Respiratory Pattern Blood Pressure Blood Pressure [Right Arm] Blood Pressure Mean Blood Pressure Mean [Right Arm] Blood Pressure Position Blood Pressure Position [Right Arm] Pulse Oximetry 93 93 Oxygen Delivery Method Sepsis Recent Fever Within 48 Hours Sepsis New/Unexplained Change in Mental Status Sepsis Action Taken by Retirement Medications Current Medication List: was personally reviewed by me Laboratory Data Attestation: I reviewed the patient's lab results. 02/01/23 15:44 02/01/23 15:44 Lab Results 02/01/23 02/01/23 02/01/23 Range/Units 15:44 15:44 18:30 WBC 7.43 (4.8-10.8) K/ul RBC 4.76 (4.20-5.40) M/uL Hgb 12.2 (12.0-16.0) g/dl Hct 36.4 L (37.0-47.0) % MCV 76.5 L (80.0-100.0) fL MCH 25.6 (25.0-34.0) pg MCHC 33.5 (32.0-36.0) g/dL RDW Std Deviation 46.1 (36.4-46.3) fL RDW Coeff of Guillermo 16.6 H (11.5-14.5) % Plt Count 138 (130-400) K/uL MPV 9.6 (9.4-12.4) fL Immature Gran % (Auto) 2.3 % Neut % (Auto) 66.2 % Lymph % (Auto) 16.4 % Cheyenne % (Auto) 9.7 % Eos % (Auto) 4.7 % Baso % (Auto) 0.7 % Neut # (Auto) 4.92 (1.40-6.50) K/uL Lymph # (Auto) 1.22 (1.2-3.4) K/uL Che[place]enne # (Auto) 0.72 H (0.11-0.59) K/uL Eos # (Auto) 0.35 (0-0.50) K/uL Baso # (Auto) 0.05 (0-0.2) K/uL Immature Gran # (Auto) 0.17 (0.01-0.20) K/uL Sodium 126 L (136-145) mmol/L Potassium 3.6 (3.5-5.1) mmol/L Chloride 93 L (98-107) mmol/L Carbon Dioxide 25 (21-32) mmol/L Anion Gap 8 (3-11) BUN 9 (6-23) mg/dl Creatinine 1.20 (0.6-1.2) mg/dl Est Cr Clr Drug Dosing 56.8 ml/min Est GFR ( Amer) 51.9 ml/min Est GFR (Non-Af Amer) 44.8 ml/min BUN/Creatinine Ratio 7.5 L (10-20) Glucose 164 H (70-99(Fasting)) mg/dl Calcium 9.4 (8.6-10.3) mg/dl Total Bilirubin 0.6 (0.2-1.0) mg/dl AST 19 (13-39) U/L ALT 13 (7-52) U/L Alkaline Phosphatase 129 H (34-104) U/L Total Protein 7.3 (6.0-8.3) gm/dl Albumin 4.1 (3.4-5.0) gm/dl Globulin 3.2 (2.5-4.0) gm/dl Albumin/Globulin Ratio 1.3 (0.9-2) Lipase 34 (11-82) U/L Urine Color Urine Appearance (Clear) Urine pH (4.5-7.5) Ur Specific [place] (1.000-1.030) Urine Protein (Negative) Urine Glucose (UA) (Negative) Urine Ketones (Negative) Urine Blood (Negative) Urine Nitrite (Negative) Urine Bilirubin (Negative) Urine Urobilinogen (Negative) Ur Leukocyte Esterase (Negative) Urine WBC (Auto) (0-5) /hpf Urine RBC (Auto) (0-4) /hpf U Hyaline Cast (Auto) (0-5) /lpf U Epithel Cells (Auto) (0-5) /lpf Urine Bacteria (Auto) (Negative) SARS-CoV-2, RNA, NAAT NEGATIVE (NEGATIVE) 02/01/23 Range/Units 18:30 WBC (4.8-10.8) K/ul RBC (4.20-5.40) M/uL Hgb (12.0-16.0) g/dl Hct (37.0-47.0) % MCV (80.0-100.0) fL MCH (25.0-34.0) pg MCHC (32.0-36.0) g/dL RDW Std Deviation (36.4-46.3) fL RDW Coeff of Guillermo (11.5-14.5) % Plt Count (130-400) K/uL MPV (9.4-12.4) fL Immature Gran % (Auto) % Neut % (Auto) % Lymph % (Auto) % [place] % (Auto) % Eos % (Auto) % Baso % (Auto) % Neut # (Auto) (1.40-6.50) K/uL Lymph # (Auto) (1.2-3.4) K/uL [place] # (Auto) (0.11-0.59) K/uL Eos # (Auto) (0-0.50) K/uL Baso # (Auto) (0-0.2) K/uL Immature Gran # (Auto) (0.01-0.20) K/uL Sodium (136-145) mmol/L Potassium (3.5-5.1) mmol/L Chloride (98-107) mmol/L Carbon Dioxide (21-32) mmol/L Anion Gap (3-11) BUN (6-23) mg/dl Creatinine (0.6-1.2) mg/dl Est Cr Clr Drug Dosing ml/min Est GFR ( Amer) ml/min Est GFR (Non-Af Amer) ml/min BUN/Creatinine Ratio (10-20) Glucose (70-99(Fasting)) mg/dl Calcium (8.6-10.3) mg/dl Total Bilirubin (0.2-1.0) mg/dl AST (13-39) U/L ALT (7-52) U/L Alkaline Phosphatase (34-104) U/L Total Protein (6.0-8.3) gm/dl Albumin (3.4-5.0) gm/dl Globulin (2.5-4.0) gm/dl Albumin/Globulin Ratio (0.9-2) Lipase (11-82) U/L Urine Color Yellow Urine Appearance Clear (Clear) Urine pH 5.5 (4.5-7.5) Ur Specific [place] 1.010 (1.000-1.030) Urine Protein Negative (Negative) Urine Glucose (UA) Negative (Negative) Urine Ketones Negative (Negative) Urine Blood Negative (Negative) Urine Nitrite Negative (Negative) Urine Bilirubin Negative (Negative) Urine Urobilinogen Negative (Negative) Ur Leukocyte Esterase 1+ H (Negative) Urine WBC (Auto) 10-30 H (0-5) /hpf Urine RBC (Auto) 0-4 (0-4) /hpf U Hyaline Cast (Auto) 1-5 (0-5) /lpf U Epithel Cells (Auto) 20-30 H (0-5) /lpf Urine Bacteria (Auto) Negative (Negative) SARS-CoV-2, RNA, NAAT (NEGATIVE) Administered Medications Morphine Sulfate (Morphine Sulfate 2 Mg/Ml Carp) 2 mg IV Q15M PRN PRN Reason: Pain Stop: 02/15/23 16:59 Last Admin: 02/01/23 17:49 Dose: 2 mg Documented By: Admin: 02/01/23 17:06 Dose: 2 mg Documented By: LISETH Discontinued Medications Sodium Chloride (Nss) 500 mls @ 999 mls/hr IV .Q31M STA Stop: 02/01/23 16:53 Last Infusion: 02/01/23 18:52 Dose: 0 mls/hr Documented By: Admin: 02/01/23 17:04 Dose: 999 mls/hr Documented By: LISETH Ondansetron HCl (Ondansetron Inj 2 Mg/Ml 2 Ml Vial) 4 mg IV NOW STA Stop: 02/01/23 16:24 Last Admin: 02/01/23 17:04 Dose: 4 mg Documented By: LISETH Imaging Data Attestation: I personally reviewed and interpreted this imaging study as follows: My Impression: 1 view chest x-ray was obtained in the emergency department. My interpretation is no free air or definite infiltrate, final report below. X-ray left hip and pelvis was obtained in the emergency department. My interpretation is no acute fracture, final report below. X-ray of the left femur was obtained in the emergency department. My interpretation is distal femur fracture which is comminuted, final report below. Radiologist's Impression: Chest X-Ray 02/01/23 16:23 SINGLE VIEW CHEST CLINICAL HISTORY: Fall. FINDINGS: 2 AP, portable, supine chest radiographs are compared to study dated 02/18/2022. The examination is degraded by portable technique, apical lordotic positioning, and patient rotation. The patient is status post midline sternotomy. The heart is top normal for projection noting atherosclerotic calcification of the thoracic aorta. The pulmonary vasculature is noncongested. Elevation of the right hemidiaphragm and chronic interstitial thickening is similar to previous. There is mild bibasilar atelectasis. The lungs and pleural spaces are otherwise clear. No pneumothorax is seen. The bony thorax is grossly intact. Arthritic change is noted in the shoulders. Cholecystectomy clips are noted in the right upper quadrant. IMPRESSION: No active disease in the chest. ACT 112: Negative or not required by law. Electronically signed by: Berto Snow M.D. 02/01/2023 5:24 PM Femur X-Ray 02/01/23 16:23 LEFT FEMUR 2 VIEWS CLINICAL HISTORY: Fall. Left leg injury. FINDINGS: AP and crosstable lateral views of the left femur are compared to study dated 12/26/2022. The skeletal structures are osteopenic. There is chronic posttraumatic deformity of the left proximal femur. A left hip arthroplasty is in near anatomic alignment. No periprosthetic lucency is seen. There is an acute comminuted oblique fracture through the distal femoral shaft with displaced fragments. There is apex dorsal angulation at the fracture site as well as mild overriding of fragments. There is lipohemarthrosis of the knee joint. The left hemipelvis appears intact. The knee joint is grossly maintained. There is atherosclerotic calcification of the left femoral artery. IMPRESSION: Fracture of the distal left femoral shaft as above. Electronically signed by: Berto Snow M.D. 02/01/2023 5:15 PM Knee X-Ray 02/01/23 16:23 LEFT KNEE 2 VIEWS CLINICAL HISTORY: Fall. Left leg injury. FINDINGS: AP and crosstable lateral views of the left knee are compared to study dated 12/26/2022. The skeletal structures are osteopenic. There is a comminuted oblique fracture through the distal shaft of the left femur with displaced fragments. There is apex dorsal angulation at the fracture site, as well as mild overriding of fragments. There there is a surrounding soft tissue edema. No additional fracture is seen at the knee joint. There is moderate tricompa rtmental degenerative joint space narrowing. There are marginal osteophytes and patellar enthesophytes. There is a joint effusion with lipohemarthrosis. Chondrocalcinosis is seen in the left lateral compartment. IMPRESSION: 1. Comminuted fracture of the distal femoral shaft as above with associated lipohemarthrosis. 2. No additional fracture is seen at the knee joint. 3. Degenerative change and chondrocalcinosis as above. Electronically signed by: Berto Snow M.D. 02/01/2023 5:[address] 02/01/23 17:27 CT SCAN OF THE LEFT KNEE WITHOUT IV CONTRAST CLINICAL HISTORY: Fall. Femoral fracture. COMPARISON STUDY: Radiographs of the left knee dated 02/01/2023. TECHNIQUE: CT scan of the left knee is performed from the distal femur to the proximal tibia and fibula. Images are reviewed in the axial, sagittal, and coronal planes. IV contrast was not administered for this examination. A dose lowering technique was utilized adhering to the principles of ALARA. CT DOSE: 443.00 mGy.cm FINDINGS: The skeletal structures are osteopenic. There is a comminuted oblique fracture of the distal femoral metadiaphysis with large distracted fragments and surrounding hemorrhage. There is apex volar angulation at the fracture site with mild overriding of several fragments. Fracture does not extend to the distal articular surface of the femur. The patella, proximal tibia, and proximal fibula appear intact. There is a joint effusion of the knee with lipohemarthrosis. Degenerative change and chondrocalcinosis is seen in the knee. Marginal osteophytes are observed. There is marked atrophy of the regional musculature. There is trace intramuscular hemorrhage within the vastus lateralis. Atherosclerotic calcification is seen in the regional arteries. IMPRESSION: 1. Comminuted fracture of the distal femoral metadiaphysis as detailed above with trace surrounding hemorrhage and associated lipohemarthrosis. 2. No additional fracture is seen at the knee joint. 3. There is trace intramuscular hemorrhage within the vastus lateralis. 4. Additional findings as above. ACT 112: Negative or not required by law. Electronically signed by: Berto Snow M.D. 02/01/2023 6:43 PM Discharge Plan Visit Data Chief Complaint: Fall ED Provider: Venkat Guerrero Discharge Problem: Femoral distal fracture, Fall Patient Disposition: Admitted As Inpatient Discharge Instructions Interventions: ED Discharge Assessment Last Done: 02/01/23 20:34 Forms Stand Alone Forms: My [facility] Prescriptions Prescriptions: No Action atorvastatin 40 mg Tablet 40 mg PO QAM acetaminophen [Tylenol] 325 mg Tablet 650 mg PO Q4 PRN (Reason: Pain (Scale Score 1-3)) lamotrigine [Lamictal] 25 mg tablet See Rx Instructions .ROUTE .COMPLEX Rx Instructions: TOTAL DOSE 125 MG QAM--TAKES WITH 100 MG TAB, THEN TAKES 2-25 MG TABS FOR 50 MG QPM. levothyroxine 88 mcg tablet 88 mcg PO QAM tamsulosin 0.4 mg Capsule 0.4 mg PO QAM dicyclomine 20 mg Tablet 10 mg PO QID PRN (Reason: ABD PAIN) pantoprazole 40 mg Tablet,Delayed Release (Dr/Ec) 40 mg PO BID gabapentin 300 mg capsule 300 mg PO BID montelukast 10 mg Tablet 10 mg PO QAM metoprolol succinate 25 mg Tablet Extended Release 24 Hr 25 mg PO QAM ergocalciferol (vitamin D2) [Vitamin D2] 1,250 mcg (50,000 unit) Capsule 1,250 mcg PO WK Rx Instructions: THURSDAYS lamotrigine [Lamictal] 100 mg Tablet 100 mg PO QAM Rx Instructions: TOTAL DOSE 125 MG--TAKES WITH 25 MG TAB. oxycodone 5 mg tablet 5 mg PO Q8 PRN (Reason: Pain) Xifaxan 550 mg Tablet 550 mg PO BID Trulicity 4.5 mg/0.5 mL pen injector 4.5 mg SUBCUT WK Rx Instructions: MONDAYS venlafaxine [Effexor XR] 75 mg capsule,extended release 24hr 75 mg PO QAM Rx Instructions: TOTAL DOSE 225 MG--TAKES WITH 150 MG CAP. FILLED 11/23/22 FOR 90 DAYS clonazepam 0.5 mg Tablet 0.5 mg PO TID aspirin 81 mg Tablet,Delayed Release (Dr/Ec) 81 mg PO QAM ascorbic acid (vitamin C) [Vitamin C] 500 mg Tablet 500 mg PO BID estradiol [Estrace] 0.01 % (0.1 mg/gram) Cream 1 g VAGINAL HS albuterol sulfate 90 mcg/actuation Hfa Aerosol Inhaler 2 puff INHALATION QID PRN (Reason: Wheezing) aripiprazole 2 mg Tablet 2 mg PO QAM insulin glargine [Basaglar KwikPen U-100 Insulin] 100 unit/mL (3 mL) insulin pen 30 unit SUBCUT BID ipratropium-albuterol [DuoNeb] 0.5 mg-3 mg(2.5 mg base)/3 mL Solution For Nebulization 3 ml INHALATION QID ondansetron HCl [Zofran] 8 mg Tablet 8 mg PO Q8H PRN (Reason: NAUSEA/VOMITING) sucralfate 1 gram tablet 1 g PO QAM famotidine 40 mg Tablet 40 mg PO DAILY venlafaxine 150 mg capsule,extended release 24hr 150 mg PO QAM Rx Instructions: TOTAL DOSE 225 MG--TAKES WITH 75 MG CAP. LAST FILLED 11/23/22 FOR 90 DAYS. methenamine hippurate 1 gram tablet 1 g PO BID potassium chloride [Klor-Con M20] 20 mEq tablet,ER particles/crystals 20 meq PO DAILY nitroglycerin [Nitrostat] 0.4 mg Tablet, Sublingual 0.4 mg sublingual DIRECTED PRN (Reason: Chest Pain) morphine 15 mg tablet extended release 15 mg PO HS PRN (Reason: Severe Pain (Scale Score 7-10)) fluticasone propionate [Flonase] 50 mcg/actuation [place],Suspension 2 spray INTRANASAL DAILY PRN (Reason: Congestion) Rx Instructions: administer into each nostril metformin 500 mg tablet extended release 24 hr 500 mg PO QDD spironolactone 50 mg tablet 50 mg PO BID Spiriva Respimat 2.5 mcg/actuation Mist 2 inh INHALATION QAM nystatin 100,000 unit/mL suspension 5 ml mucous membrane QID Rx Instructions: STARTED 01/28/23 FOR 12 DAYS oxybutynin chloride 10 mg tablet extended release 24hr 10 mg PO QAM nystatin [Nyamyc] 100,000 unit/gram powder 1 applic TOPICAL TID Rx Instructions: STARTED 01/15/23 FOR 10 DAYS levofloxacin 500 mg tablet 500 mg PO QAM Rx Instructions: STARTED 01/27/23 FOR 7 DAYS. diclofenac sodium [Voltaren] 1 % Gel 2 g TOPICAL BID PRN (Reason: Pain) torsemide 20 mg Tablet 20 mg PO QAM Rx Instructions: MAY TAKE 1 ADDITIONAL TABLET NEEDED FOR SWELLING trazodone 50 mg Tablet 50 mg PO HS lactulose 10 gram/15 mL Solution 45 g PO BID budesonide-formoterol [Symbicort] 160-4.5 mcg/actuation Hfa Aerosol Inhaler 2 inh INHALATION BID Referrals Referrals: Brian oDmínguez MD [Primary Care Provider] - Femoral distal fracture Qualifiers: Encounter type: initial encounter Fracture type: closed Fracture morphology: unspecified fracture morphology Laterality: left Qualified Code(s): S72.402A - Unspecified fracture of lower end of left femur, initial encounter for closed fracture Fall Qualifiers: Encounter type: initial encounter Qualified Code(s): W19.XXXA - Unspecified fall, initial encounter
[2023-02-01 16:40] LABS: Basophils # (auto) 0.05 K/uL (0-0.2); Basophils % (auto) 0.7 %; Eosinophils # (auto) 0.35 K/uL (0-0.50); Eosinophils % (auto) 4.7 %; Hematocrit (blood only) 36.4 % (37.0-47.0); Hemoglobin 12.2 g/dl (12.0-16.0); Immature Granulocytes # (auto) 0.17 K/uL (0.01-0.20); Immature Granulocytes % (auto) 2.3 %; Lymphocytes # (auto) 1.22 K/uL (1.2-3.4); Lymphocytes % (auto) 16.4 %; Mean Corpuscular Hemoglobin 25.6 pg (25.0-34.0); Mean Corpuscular Hgb Conc 33.5 g/dL (32.0-36.0); Mean Corpuscular Volume 76.5 fL (80.0-100.0); Mean Platelet Volume 9.6 fL (9.4-12.4); Monocytes # (auto) 0.72 K/uL (0.11-0.59); Monocytes % (auto) 9.7 %; Neutrophils # (auto) 4.92 K/uL (1.40-6.50); Neutrophils % (auto) 66.2 %; Platelet Count 138 K/uL (130-400); RDW Coefficient of Variation 16.6 % (11.5-14.5); RDW Standard Deviation 46.1 fL (36.4-46.3); Red Blood Count 4.76 M/uL (4.20-5.40); White Blood Count 7.43 K/ul (4.8-10.8)
[2023-02-01 16:54] LABS: Albumin Globulin Ratio 1.3 (0.9-2); Albumin Level 4.1 gm/dl (3.4-5.0); BUN Creatinine Ratio 7.5 (10-20); Bilirubin,Total 0.6 mg/dl (0.2-1.0); Calcium 9.4 mg/dl (8.6-10.3); Creatinine Clr Calc Pharmacy 56.8 ml/min; Est GFR (African American) 51.9 ml/min; Est GFR (Non-African American) 44.8 ml/min; Globulin 3.2 gm/dl (2.5-4.0); Potassium 3.6 mmol/L (3.5-5.1); Total Protein 7.3 gm/dl (6.0-8.3)
[2023-02-01] MEDS: MoRPHine SULFATE 2 MG/ML CARP IV PRN ×2 (17:06→17:49)
--- NOTE | 2023-02-01 17:12 | XRay Report ---
LEFT KNEE 2 VIEWS CLINICAL HISTORY: Fall. Left leg injury. FINDINGS: AP and crosstable lateral views of the left knee are compared to study dated 12/26/2022. The skeletal structures are osteopenic. There is a comminuted oblique fracture through the distal shaft of the left femur with displaced fragments. There is apex dorsal angulation at the fracture site, as well as mild overriding of fragments. There there is a surrounding soft tissue edema. No additional f racture is seen at the knee joint. There is moderate tricompartmental degenerative joint space narrow ing. There are marginal osteophytes and patellar enthesophytes. There is a joint effusion with lipohe marthrosis. Chondrocalcinosis is seen in the left lateral compartment. IMPRESSION: 1. Comminuted fracture of the distal femoral shaft as above with associated lipohemarthrosis. 2. No additional fracture is seen at the knee joint. 3. Degenerative change and chondrocalcinosis as above. Electronically signed by: Berto Snow M.D. 02/01/2023 5:10 PM
--- NOTE | 2023-02-01 17:17 | XRay Report ---
LEFT FEMUR 2 VIEWS CLINICAL HISTORY: Fall. Left leg injury. FINDINGS: AP and crosstable lateral views of the left femur are compared to study dated 12/26/2022. Th e skeletal structures are osteopenic. There is chronic posttraumatic deformity of the left proximal f emur. A left hip arthroplasty is in near anatomic alignment. No periprosthetic lucency is seen. There is an acute comminuted oblique fracture through the distal femoral shaft with displaced fragments. T here is apex dorsal angulation at the fracture site as well as mild overriding of fragments. There is lipohemarthrosis of the knee joint. The left hemipelvis appears intact. The knee joint is grossly ma intained. There is atherosclerotic calcification of the left femoral artery. IMPRESSION: Fracture of the distal left femoral shaft as above. Electronically signed by: Berto Snow M.D. 02/01/2023 5:15 PM
--- NOTE | 2023-02-01 17:26 | XRay Report ---
SINGLE VIEW CHEST CLINICAL HISTORY: Fall. FINDINGS: 2 AP, portable, supine chest radiographs are compared to study dated 02/18/2022. The examina tion is degraded by portable technique, apical lordotic positioning, and patient rotation. The patien t is status post midline sternotomy. The heart is top normal for projection noting atherosclerotic ca lcification of the thoracic aorta. The pulmonary vasculature is noncongested. Elevation of the right hemidiaphragm and chronic interstitial thickening is similar to previous. There is mild bibasilar ate lectasis. The lungs and pleural spaces are otherwise clear. No pneumothorax is seen. The bony thorax is grossly intact. Arthritic change is noted in the shoulders. Cholecystectomy clips are noted in the right upper quadrant. IMPRESSION: No active disease in the chest. ACT 112: Negative or not required by law. Electronically signed by: Berto Snow M.D. 02/01/2023 5:24 PM
--- NOTE | 2023-02-01 17:50 | History & Physical Report ---
Date of Service February 01, 2023 Assessment & Plan (1) Femoral distal fracture: Plan: Patient is very complex. Will ask for Cardiology consult to help with risk stratification and optimization prior to OR. She underwent left hemiarthroplasty 02/2022 and did well. (2) UTI (urinary tract infection): Plan: -currently on levaquin. Low grade temp per family. Will repeat UA -recurrent UTI, sees Urology -continue flomax, oxybutynin (3) Encounter for pre-operative examination: (4) Abdominal distension: Plan: -History of GONZALEZ cirrhosis. On exam appears volume overloaded, but difficult to assess fluid status due to body habitus -check full abdominal ultrasound -check bilateral lower extremity duplex u/s Plan CAD with prior CABG Moderate -continue statin, aspirin -check EKG now Questionable reactive airway disease -continue inhaler/nebulizers (family states patient carries a diagnosis of "COPD" but never had formal testing) T2DM Gastroparesis Neuropathy -continue gabapentin -hold trulicity -reduce lantus to: 10unit BID (home dose is 30 unit BID) -glycemic pharmacy management Anxiety Depression bipolar disorder -continue home medications GONZALEZ cirrhosis -continue torsemide, spironolactone, rifaxamin, lactulose -check abdominal u/s Chronic back pain -continue MS contin 15mg QHS PRN, oxycodone 5mg Q 8 PRN Hypothyroidism -continue synthroid DVT ppx SCDs for now in anticipation of surgery Dispo- Med telemetry Patient admitted as inpatient. she will need at least 2 midnight stay Code status- full for now, discussed with daughters History of Present Illness Chief Complaint: left leg pain Primary Care Provider: Brian Domínguez MD Ms Angelina Ballard is a 72 year old female with a complex medical history of type 2 DM with neuropathy and gastroparesis on insulin, HLD, hypothyroidism, CKD stage 3a, moderate aortic stenosis, CAD with prior CABG in 2010 and cardiac cath 2009, GONZALEZ cirrhosis, anxiety, bipolar disorder here with left leg pain after falling after leaving home for a doctor's appointment. Patient has a history of recurrent UTIs (almost monthly) and is currently on levaquin for her latest treatment course. She was previously on ciprofloxaci but developed pruritis so she was switched to levaquin. She also has not been feeling, and according to her daughter she has been running low grade temp (Tmax 99.4). And feeling very fatigued. Also with chest congestion with cough and scant mucous production. Up to date on all vaccinations including Covid 19. Today, she had an appointment at [facility] for her above symptoms and as she was walking out of her house, she felt very weak and her "legs gave out" and she fell. Here, in the ER she was found to have a left femur fracture above the knee. On ROS- she suffers from gastroparesis so she has chronic nausea but no vomiting. Family reports she is having increasing abdominal distension and leg swelling. She takes torsemide and has taken additional torsemide under the direction of her doctor but with no improvement in her leg swelling. She is in the process of being referred to see a lymphedema clinic. Patient reports feeling dyspneic with exertion and palpitations but no chest pain. Baseline she ambulates with a walker but is not very active. Patient last had surgery last year when she underwent hip surgery. She has a history of hospital delirium but overall did well from her surgery. Allergies Allergy/AdvReac Type Severity Reaction Status Date / Time propoxyphene Allergy Intermediate Rash Verified 02/01/23 16:28 fentanyl AdvReac Intermediate PANIC Verified 02/01/23 16:28 WANTS TO RUN AND AGGRESSIVE methocarbamol AdvReac Intermediate DELERIUM Verified 02/01/23 16:28 zolpidem AdvReac Intermediate confusion Verified 02/01/23 16:28 Home Medications Medication Instructions Recorded Confirmed Type acetaminophen 325 mg tablet 650 mg PO Q4 PRN Pain (Scale Score 02/19/22 02/01/23 History (Tylenol) 1-3) albuterol sulfate 90 mcg/actuation 2 puff inhalation QID PRN Wheezing 02/19/22 02/01/23 History aerosol inhaler aripiprazole 2 mg tablet 2 mg PO QAM 02/19/22 02/01/23 History ascorbic acid (vitamin C) 500 mg 500 mg PO BID 02/19/22 02/01/23 History tablet (Vitamin C) aspirin 81 mg tablet,delayed 81 mg PO QAM 02/19/22 02/01/23 History release atorvastatin 40 mg tablet 40 mg PO QAM 02/19/22 02/01/23 History clonazepam 0.5 mg tablet 0.5 mg PO TID 02/19/22 02/01/23 History dicyclomine 20 mg tablet 10 mg PO QID PRN ABD PAIN 02/19/22 02/01/23 History dulaglutide 4.5 mg/0.5 mL 4.5 mg subcut WK 02/19/22 02/01/23 History subcutaneous pen injector (Trulicity) ergocalciferol (vitamin D2) 1,250 1,250 mcg PO WK 02/19/22 02/01/23 History mcg (50,000 unit) capsule (Vitamin D2) estradiol 0.01% (0.1 mg/gram) 1 g vaginal HS 02/19/22 02/01/23 History vaginal cream (Estrace) gabapentin 300 mg capsule 300 mg PO BID 02/19/22 02/01/23 History lamotrigine 100 mg tablet 100 mg PO QAM 02/19/22 02/01/23 History (Lamictal) lamotrigine 25 mg tablet (Lamictal) See Rx Instructions .Route .COMPLEX 02/19/22 02/01/23 History levothyroxine 88 mcg tablet 88 mcg PO QAM 02/19/22 02/01/23 History metoprolol succinate 25 mg 25 mg PO QAM 02/19/22 02/01/23 History tablet,extended release 24 hr montelukast 10 mg tablet 10 mg PO QAM 02/19/22 02/01/23 History oxycodone 5 mg tablet 5 mg PO Q8 PRN Pain 02/19/22 02/01/23 History pantoprazole 40 mg tablet,delayed 40 mg PO BID 02/19/22 02/01/23 History release rifaximin 550 mg tablet (Xifaxan) 550 mg PO BID 02/19/22 02/01/23 History tamsulosin 0.4 mg capsule 0.4 mg PO QAM 02/19/22 02/01/23 History venlafaxine 75 mg capsule,extended 75 mg PO QAM 02/19/22 02/01/23 History release 24 hr (Effexor XR) insulin glargine 100 unit/mL (3 30 unit subcut BID 04/09/22 02/01/23 History mL) subcutaneous pen (Basaglar KwikPen U-100 Insulin) budesonide-formoterol HFA 160 2 inh inhalation BID 05/24/22 02/01/23 History mcg-4.5 mcg/actuation aerosol inhaler (Symbicort) lactulose 10 gram/15 mL oral 45 g PO BID 05/24/22 02/01/23 History solution torsemide 20 mg tablet 20 mg PO QAM 05/24/22 02/01/23 History trazodone 50 mg tablet 50 mg PO HS 05/24/22 02/01/23 History famotidine 40 mg tablet 40 mg PO DAILY 12/26/22 02/01/23 History fluticasone propionate 50 2 spray intranasal DAILY PRN 12/26/22 02/01/23 History mcg/actuation nasal Congestion spray,suspension ipratropium 0.5 mg-albuterol 3 mg 3 ml inhalation QID 12/26/22 02/01/23 History (2.5 mg base)/3 mL nebulization soln metformin 500 mg tablet,extended 500 mg PO QDD 12/26/22 02/01/23 History release 24 hr methenamine hippurate 1 gram tablet 1 g PO BID 12/26/22 02/01/23 History morphine 15 mg tablet,extended 15 mg PO HS PRN Severe Pain (Scale 12/26/22 02/01/23 History release Score 7-10) nitroglycerin 0.4 mg sublingual 0.4 mg sublingual DIRECTED PRN 12/26/22 02/01/23 History tablet (Nitrostat) Chest Pain ondansetron HCl 8 mg tablet 8 mg PO Q8H PRN NAUSEA/VOMITING 12/26/22 02/01/23 History potassium chloride 20 mEq 20 meq PO DAILY 12/26/22 02/01/23 History tablet,extended release(part/cryst) (Klor-Con M) spironolactone 50 mg tablet 50 mg PO BID 12/26/22 02/01/23 History sucralfate 1 gram tablet 1 g PO QAM 12/26/22 02/01/23 History tiotropium bromide 2.5 2 inh inhalation QAM 12/26/22 02/01/23 History mcg/actuation mist for inhalation (Spiriva Respimat) venlafaxine 150 mg 150 mg PO QAM 12/26/22 02/01/23 History capsule,extended release 24 hr diclofenac sodium 1 % topical gel 2 g topical BID PRN Pain 07/29/23 07/29/23 History levofloxacin 500 mg tablet 500 mg PO QAM 02/01/23 02/01/23 History nystatin 100,000 unit/gram topical 1 applic topical TID 02/01/23 02/01/23 History powder (Nyamy) nystatin 100,000 unit/mL oral 5 ml mucous membrane QID 02/01/23 02/01/23 History suspension oxybutynin chloride 10 mg 10 mg PO QAM 02/01/23 02/01/23 History tablet,extended release 24 hr Past Med/Surg History Medical History Anxiety Bipolar disorder CAD (coronary artery disease) History of multiple PCI's to the RCA with subsequent CABG x1 in 2010 x 1 vessel Most recent cardiac testing-negative DSE in December 2017 Follows w/ Dr. Blackwell and Dr. Lucas Cardiac arrest pt states she was told she went into cardiac arrest during her hip surgery in 02/2022 at [facility] and was "revived". no other details were given. Vfefwnr-Yihxk-Iuvlc disease follows w/ Dr. Lemus LEG WEAKNESS CURRENT PT/OT FOR - BRACES B/L LEGS Chronic diastolic CHF (congestive heart failure) Chronic low back pain Chronic pain syndrome Cough started about 8 months ago s/p covid-19 virus -- currently treating with augmentin PO bid and prednisone. prednisone to end 05/27/22 and abx to finish on 06/01/22 Depression DM type 2 (diabetes mellitus, type 2) IDDM Dyslipidemia Encephalopathy d/c from [facility] 09/20/19 (hepatic encephalopathy) Gastroparesis GERD (gastroesophageal reflux disease) History of anesthesia reaction REMOTE HX, SIDE EFFECTS : ANXIETY AND SEVERE N/V History of COVID-19 may or june 2021, has cough since. Hx of fall pt. fell in the bathroom at home, pt. wasn't aware of what happen but was told this by her family 02/05/2022 Hypertension Hypothyroidism Irregular heart beat follows Dr. 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 Portal hypertensive gastropathy SOB (shortness of breath) SINCE COVID 19/ 6-8 MON AGO, SOB, COUGH...NO DX...HAS VISIT WITH PULM UPCOMING TO EVALUATE Spondylosis Urinary incontinence UTI (urinary tract infection) FREQUENT/PREVENTATIVE ABX'S CURRENTLY MOST RECENT UTI JANUARY 04 - ABX COMPLETE - ON CURRENT PROPHYLACTIC TX Surgical History History of appendectomy History of back surgery sacral area History of cardiac cath multiple - most recent - 2 years ago @ [facility] History of cataract surgery RT History of colonoscopy History of esophagogastroduodenoscopy (EGD) History of heart artery stent 2 yrs ago @ [facility] > 6 or 7 stents > follows Dr. Lucas History of left hip replacement 02/05/2022 History of total right knee replacement Hx of cholecystectomy S/P CABG x 1 2010 - single vessel S/P CARLOS (total abdominal hysterectomy) Family History Father Coronary heart disease Brother Coronary heart disease Father No problems noted. Mother No problems noted. 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 Assembler Wet Wash Required: No Beliefs That Will Affect Care: None marital status: / Current Living Situation: Alone How many Children do You have: 0 Feels Safe at Home: Yes Assistive Devices: Brace/Splint/Immobilizer and Walker Review of Systems Review of Systems: as above Physical Exam Physical Exam: appears older than her age, chronically ill appearing, discomfort related to her left leg ENMT: neck thick, mucous membrane moist, normocephalic Respiratory: No wheezing/rhonchi/rales Cardiovascular: +systolic murmur, regular rate and rhythm Gastrointestinal (Abdomen): +BS, soft, +distended, +obese Musculoskeletal: +left leg with swelling, pain, bilateral non pitting edema Neurologic: awake, alert, answering questions appropriately Psychiatric: anxious, speech linear, non pressured Results & Data Results & Data Vital Signs (Past 12 Hours) Vital Signs Temp Pulse Pulse Resp BP BP Pulse Ox 02/01/23 17:11 36.8 C 81 18 138/76 93 02/01/23 16:23 79 20 97 02/01/23 15:58 84 02/01/23 15:36 36.8 C 85 18 103/75 98 02/01/23 15:36 36.8 C 86 18 103/75 98 O2 Del Method 02/01/23 17:11 Room Air 02/01/23 16:23 Room Air 02/01/23 15:58 02/01/23 15:36 Room Air 02/01/23 15:36 Room Air (1) Femoral distal fracture Encounter type: initial encounter Fracture morphology: unspecified fracture morphology Fracture type: closed Laterality: left Qualified Code(s): S72.402A - Unspecified fracture of lower end of left femur, initial encounter for closed fracture (2) UTI (urinary tract infection) Hematuria presence: without hematuria Urinary tract infection type: site unspecified Qualified Code(s): N39.0 - Urinary tract infection, site not specified
[2023-02-01] MEDS ORDERED: METOCLOPRAMIDE HCL INJ 5 MG/ML 2 ML VIAL IV PRN (18:29)
--- NOTE | 2023-02-01 18:45 | CT Scan Report ---
CT SCAN OF THE LEFT KNEE WITHOUT IV CONTRAST CLINICAL HISTORY: Fall. Femoral fracture. COMPARISON STUDY: Radiographs of the left knee dated 02/01/2023. TECHNIQUE: CT scan of the left knee is performed from the distal femur to the proximal tibia and fibu la. Images are reviewed in the axial, sagittal, and coronal planes. IV contrast was not administered for this examination. A dose lowering technique was utilized adhering to the principles of ALARA. CT DOSE: 443.00 mGy.cm FINDINGS: The skeletal structures are osteopenic. There is a comminuted oblique fracture of the dista l femoral metadiaphysis with large distracted fragments and surrounding hemorrhage. There is apex vol ar angulation at the fracture site with mild overriding of several fragments. Fracture does not exten d to the distal articular surface of the femur. The patella, proximal tibia, and proximal fibula appe ar intact. There is a joint effusion of the knee with lipohemarthrosis. Degenerative change and chond rocalcinosis is seen in the knee. Marginal osteophytes are observed. There is marked atrophy of the r egional musculature. There is trace intramuscular hemorrhage within the vastus lateralis. Atheroscler otic calcification is seen in the regional arteries. IMPRESSION: 1. Comminuted fracture of the distal femoral metadiaphysis as detailed above with trace surrounding h emorrhage and associated lipohemarthrosis. 2. No additional fracture is seen at the knee joint. 3. There is trace intramuscular hemorrhage within the vastus lateralis. 4. Additional findings as above. ACT 112: Negative or not required by law. Electronically signed by: Berto Snow M.D. 02/01/2023 6:43 PM
[2023-02-01 19:06] LABS: Appearance Urine Clear (Clear); Bacteria Urine Automated Negative (Negative); Bilirubin Urine Negative (Negative); Blood Urine Negative (Negative); Color Urine Yellow; Epithelial Cell Urine Auto 20-30 /lpf (0-5); Glucose Urine UA Negative (Negative); Ketones Urine Negative (Negative); Leukocyte Esterase Urine 1+ (Negative); Nitrite Urine Negative (Negative); Protein Urine Negative (Negative); RBC Urine Automated 0-4 /hpf (0-4); Urobilinogen Urine Negative (Negative); pH Urine 5.5 (4.5-7.5)
[2023-02-01] MEDS ORDERED: PHARMACY GLYCEMIC MGMT CONSULT PRN (19:10)
[2023-02-01] MEDS ORDERED: GLUCOSE 10 TAB/TUBE PO PRN (19:12)
[2023-02-01] MEDS ORDERED: GLUCAGON FOR INJ 1 MG VIAL SQ PRN (19:12)
[2023-02-01] MEDS ORDERED: GLUCOSE 40% GEL 15 GM TUBE PO PRN (19:12)
[2023-02-01] MEDS ORDERED: DEXTROSE 50% 50 ML SYRINGE IV PRN (19:12)
[2023-02-01] MEDS ORDERED: CARBOHYDRATES FOR HYPOGLYCEMIA PO PRN (19:12)
[2023-02-01] MEDS ORDERED: INSULIN ASPART PER UNIT CHARGE SC SCH (21:00)
[2023-02-01] MEDS ORDERED: BUDESONIDE/FORMOTEROL FUMARATE 160/4.5 60 PUFFS/INHALER INH SCH (21:29)
[2023-02-01] MEDS ORDERED: MoRPHine SULFATE CR 15 MG TABCR PO PRN (21:29)
[2023-02-01] MEDS ORDERED: oxyCODONE HCL IR 5 MG TAB (IMMEDIATE RELEASE) PO PRN (21:29)
[2023-02-01] MEDS ORDERED: ALBUTEROL HFA 8 GM INHALER INH PRN (21:29)
[2023-02-01] MEDS ORDERED: LANTUS PER UNIT CHARGE SC SCH (21:45)
[2023-02-01] MEDS: ALBUT/IPRATROP 3MG/0.5MG NEB 3 ML VIAL INH SCH (21:46)
[2023-02-01] MEDS: ACETAMINOPHEN 500 MG TAB PO SCH (22:47)
[2023-02-01] MEDS: rifAXIMin 550 MG TABLET PO SCH (22:47)
[2023-02-01] MEDS: traZODone HCL 50 MG TAB PO SCH (22:47)
[2023-02-01] MEDS: METHENAMINE HIPPURATE 1 GM TAB PO SCH (22:49)
[2023-02-01] MEDS: GABAPENTIN 300 MG CAP PO SCH (22:49)
[2023-02-01] MEDS: lamoTRIgine 25 MG TAB PO SCH (22:50)
[2023-02-01] MEDS: SPIRONOLACTONE 25 MG TAB PO SCH (22:50)
[2023-02-01] MEDS: PANTOprazole 40 MG TAB PO SCH (22:50)
[2023-02-01] MEDS: NYSTATIN SUSP 500,000 U/5 ML UDC PO SCH (22:51)
[2023-02-01] MEDS: INSULIN ASPART PER UNIT CHARGE SC SCH (22:51)
[2023-02-01] MEDS: LACTULOSE SYRUP 10 GM/15 ML BTL 960 ML PO SCH (22:52)
[2023-02-01] MEDS: NYSTATIN POWDER 15GM BTL EXT SCH (22:53)
[2023-02-01] MEDS: clonazePAM 0.5 MG TAB PO SCH (22:54)
[2023-02-02] MEDS ORDERED: POTASSIUM CHLORIDE CRTAB 20 MEQ TABCR PO STA (00:05)
[2023-02-02 00:29] LABS: Magnesium 1.6 mg/dl (1.7-2.4)
[2023-02-02] MEDS ORDERED: NSS + 20MEQ KCL 20 MEQ/1,000 ML BAG IV ONE (00:30)
[2023-02-02] MEDS: MAGNESIUM SULFATE / D5W 1 GM/100 ML BAG IV SCH ×2 (04:20→06:29)
[2023-02-02] MEDS: LEVOTHYROXINE SODIUM 88 MCG TABLET PO SCH (06:21)
[2023-02-02] MEDS: INSULIN ASPART PER UNIT CHARGE SC SCH ×4 (06:25→20:51)
[2023-02-02] MEDS: ALBUT/IPRATROP 3MG/0.5MG NEB 3 ML VIAL INH SCH ×4 (07:04→19:20)
[2023-02-02] MEDS ORDERED: LANTUS PER UNIT CHARGE SC ONE (07:15)
[2023-02-02] MEDS: NYSTATIN SUSP 500,000 U/5 ML UDC PO SCH ×4 (07:34→20:50)
[2023-02-02] MEDS: NYSTATIN POWDER 15GM BTL EXT SCH ×3 (07:34→20:56)
[2023-02-02] MEDS: clonazePAM 0.5 MG TAB PO SCH ×3 (07:34→20:49)
[2023-02-02] MEDS: ACETAMINOPHEN 500 MG TAB PO SCH ×3 (07:34→20:50)
[2023-02-02] MEDS: METHENAMINE HIPPURATE 1 GM TAB PO SCH ×2 (07:35→20:57)
[2023-02-02] MEDS: SPIRONOLACTONE 25 MG TAB PO SCH ×2 (07:35→20:54)
[2023-02-02] MEDS: LACTULOSE SYRUP 10 GM/15 ML BTL 960 ML PO SCH ×2 (07:35→20:49)
[2023-02-02] MEDS: PANTOprazole 40 MG TAB PO SCH ×2 (07:35→20:57)
[2023-02-02] MEDS: rifAXIMin 550 MG TABLET PO SCH ×2 (07:36→20:55)
[2023-02-02] MEDS: OXYBUTYNIN CHLORIDE XL 5 MG TABCR PO SCH (07:36)
[2023-02-02] MEDS: GABAPENTIN 300 MG CAP PO SCH ×2 (07:36→20:53)
[2023-02-02] MEDS: ARIPIprazole 1 MG/ML ORAL SOLN 150 ML BTL PO SCH (07:36)
[2023-02-02] MEDS: TORSEMIDE 10 MG TAB PO SCH (07:37)
[2023-02-02] MEDS: SUCRALFATE 1 GM TAB PO SCH (07:37)
[2023-02-02] MEDS: lamoTRIgine 100 MG TAB PO SCH (07:37)
[2023-02-02] MEDS: METOPROLOL SUCC 25MG EXT REL TAB PO SCH (07:37)
[2023-02-02] MEDS: VENLAFAXINE HCL XR 150 MG CAPXR PO SCH (07:37)
[2023-02-02] MEDS: TAMSULOSIN HCL 0.4 MG CAP PO SCH (07:38)
[2023-02-02] MEDS: VENLAFAXINE HCL XR 75 MG CAPXR PO SCH (07:38)
[2023-02-02] MEDS: MONTELUKAST SODIUM 10 MG TABLET PO SCH (07:38)
[2023-02-02] MEDS: lamoTRIgine 25 MG TAB PO SCH ×2 (07:38→20:56)
[2023-02-02] MEDS: UMECLIDINIUM BROMIDE 62.5MCG/BLISTER 7 PUFFS/INHALER INH SCH (07:38)
[2023-02-02] MEDS: FLUTICASONE PROPIONATE NA SPR 16 GM BTL SCH (07:38)
[2023-02-02] MEDS: FLUTICASONE/VILANTEROL 100/25MCG 14 PUFFS/INHALER INH SCH (07:39)
[2023-02-02 07:56] LABS: Hematocrit (blood only) 32.3 % (37.0-47.0); Hemoglobin 10.7 g/dl (12.0-16.0); Mean Corpuscular Hemoglobin 25.2 pg (25.0-34.0); Mean Corpuscular Hgb Conc 33.1 g/dL (32.0-36.0); Mean Corpuscular Volume 76.2 fL (80.0-100.0); Mean Platelet Volume 9.6 fL (9.4-12.4); Platelet Count 154 K/uL (130-400); RDW Standard Deviation 46.6 fL (36.4-46.3); Red Blood Count 4.24 M/uL (4.20-5.40); White Blood Count 10.29 K/ul (4.8-10.8)
--- NOTE | 2023-02-02 08:00 | Cardiology Consultation ---
Date of Consultation February 02, 2023 Assessment & Plan (1) Preop cardiovascular exam: (2) CAD (coronary artery disease), [place] coronary artery: (3) Chronic heart failure with preserved ejection fraction: (4) Edema leg: Plan 72-year-old female with complex cardiovascular history noted above. Appears compensated from a cardiovascular perspective without anginal symptoms. ECG unchanged. Euvolemic on exam. Asymmetric left lower extremity edema noted. Recommend venous duplex. Continue current cardiovascular medications aspirin, and beta-allie. History of Present Illness Reason for Consultation: Preoperative cardiovascular evaluation Requesting Physician: Dr. Dumont Attending Physician: Rosalia Dumont MD History of Present Illness 72-year-old female present to the emergency department fall. Patient reports feeling very weak in her legs gave out. Brought to the emergency department found to have a left-sided femur fracture. Complex cardiovascular history listed below. Currently, patient resting comfortably. Denies any recent chest discomfort or unusual shortness of breath. Stable functional capacity. Has not required any sublingual nitroglycerin. Cardiac history: 1. CAD S/P multiple PCI to the RCA, then CABG with MISAEL to the RCA on 02/15/2011. 2. Post op atrial fibrillation 3. Repeat Cath 06/04/2012 which demonstrated 50% in-stent restenosis of the proximal RCA with a patent MISAEL to the distal RCA that has competitive flow from the [place] vessel. The left coronary system had minor nonobstructive disease. There was normal left ventricular systolic function. 4. HFpEF 5. Aortic stenosis 6. GONZALEZ 7. Dyslipidemia 8. Hypertension 9. Charcot jeanine tooth disease 10. Bipolar 11. DM Allergies Allergy/AdvReac Type Severity Reaction Status Date / Time propoxyphene Allergy Intermediate Rash Verified 02/01/23 16:28 fentanyl AdvReac Intermediate PANIC Verified 02/01/23 16:28 WANTS TO RUN AND AGGRESSIVE methocarbamol AdvReac Intermediate DELERIUM Verified 02/01/23 16:28 zolpidem AdvReac Intermediate confusion Verified 02/01/23 16:28 Home Medications Medication Instructions Recorded Confirmed Type acetaminophen 325 mg tablet 650 mg PO Q4 PRN Pain (Scale Score 02/19/22 02/01/23 History (Tylenol) 1-3) albuterol sulfate 90 mcg/actuation 2 puff inhalation QID PRN Wheezing 02/19/22 02/01/23 History aerosol inhaler aripiprazole 2 mg tablet 2 mg PO QAM 02/19/22 02/01/23 History ascorbic acid (vitamin C) 500 mg 500 mg PO BID 02/19/22 02/01/23 History tablet (Vitamin C) aspirin 81 mg tablet,delayed 81 mg PO QAM 02/19/22 02/01/23 History release atorvastatin 40 mg tablet 40 mg PO QAM 02/19/22 02/01/23 History clonazepam 0.5 mg tablet 0.5 mg PO TID 02/19/22 02/01/23 History dicyclomine 20 mg tablet 10 mg PO QID PRN ABD PAIN 02/19/22 02/01/23 History dulaglutide 4.5 mg/0.5 mL 4.5 mg subcut WK 02/19/22 02/01/23 History subcutaneous pen injector (Trulicity) ergocalciferol (vitamin D2) 1,250 1,250 mcg PO WK 02/19/22 02/01/23 History mcg (50,000 unit) capsule (Vitamin D2) estradiol 0.01% (0.1 mg/gram) 1 g vaginal HS 02/19/22 02/01/23 History vaginal cream (Estrace) gabapentin 300 mg capsule 300 mg PO BID 02/19/22 02/01/23 History lamotrigine 100 mg tablet 100 mg PO QAM 02/19/22 02/01/23 History (Lamictal) lamotrigine 25 mg tablet (Lamictal) See Rx Instructions .Route .COMPLEX 02/19/22 02/01/23 History levothyroxine 88 mcg tablet 88 mcg PO QAM 02/19/22 02/01/23 History metoprolol succinate 25 mg 25 mg PO QAM 02/19/22 02/01/23 History tablet,extended release 24 hr montelukast 10 mg tablet 10 mg PO QAM 02/19/22 02/01/23 History oxycodone 5 mg tablet 5 mg PO Q8 PRN Pain 02/19/22 02/01/23 History pantoprazole 40 mg tablet,delayed 40 mg PO BID 02/19/22 02/01/23 History release rifaximin 550 mg tablet (Xifaxan) 550 mg PO BID 02/19/22 02/01/23 History tamsulosin 0.4 mg capsule 0.4 mg PO QAM 02/19/22 02/01/23 History venlafaxine 75 mg capsule,extended 75 mg PO QAM 02/19/22 02/01/23 History release 24 hr (Effexor XR) insulin glargine 100 unit/mL (3 30 unit subcut BID 04/09/22 02/01/23 History mL) subcutaneous pen (Basaglar KwikPen U-100 Insulin) budesonide-formoterol HFA 160 2 inh inhalation BID 05/24/22 02/01/23 History mcg-4.5 mcg/actuation aerosol inhaler (Symbicort) lactulose 10 gram/15 mL oral 45 g PO BID 05/24/22 02/01/23 History solution torsemide 20 mg tablet 20 mg PO QAM 05/24/22 02/01/23 History trazodone 50 mg tablet 50 mg PO HS 05/24/22 02/01/23 History famotidine 40 mg tablet 40 mg PO DAILY 12/26/22 02/01/23 History fluticasone propionate 50 2 spray intranasal DAILY PRN 12/26/22 02/01/23 History mcg/actuation nasal Congestion spray,suspension ipratropium 0.5 mg-albuterol 3 mg 3 ml inhalation QID 12/26/22 02/01/23 History (2.5 mg base)/3 mL nebulization soln metformin 500 mg tablet,extended 500 mg PO QDD 12/26/22 02/01/23 History release 24 hr methenamine hippurate 1 gram tablet 1 g PO BID 12/26/22 02/01/23 History morphine 15 mg tablet,extended 15 mg PO HS PRN Severe Pain (Scale 12/26/22 02/01/23 History release Score 7-10) nitroglycerin 0.4 mg sublingual 0.4 mg sublingual DIRECTED PRN 12/26/22 02/01/23 History tablet (Nitrostat) Chest Pain ondansetron HCl 8 mg tablet 8 mg PO Q8H PRN NAUSEA/VOMITING 12/26/22 02/01/23 History potassium chloride 20 mEq 20 meq PO DAILY 12/26/22 02/01/23 History tablet,extended release(part/cryst) (Klor-Con M) spironolactone 50 mg tablet 50 mg PO BID 12/26/22 02/01/23 History sucralfate 1 gram tablet 1 g PO QAM 12/26/22 02/01/23 History tiotropium bromide 2.5 2 inh inhalation QAM 12/26/22 02/01/23 History mcg/actuation mist for inhalation (Spiriva Respimat) venlafaxine 150 mg 150 mg PO QAM 12/26/22 02/01/23 History capsule,extended release 24 hr diclofenac sodium 1 % topical gel 2 g topical BID PRN Pain 02/01/23 02/01/23 History levofloxacin 500 mg tablet 500 mg PO QAM 02/01/23 02/01/23 History nystatin 100,000 unit/gram topical 1 applic topical TID 02/01/23 02/01/23 History powder (Nyamyc) nystatin 100,000 unit/mL oral 5 ml mucous membrane QID 02/01/23 02/01/23 History suspension oxybutynin chloride 10 mg 10 mg PO QAM 02/01/23 02/01/23 History tablet,extended release 24 hr Patient History Medical History Anxiety Bipolar disorder CAD (coronary artery disease) History of multiple PCI's to the RCA with subsequent CABG x1 in 2010 x 1 vessel Most recent cardiac testing-negative DSE in December 2017 Follows w/ Dr. Blackwell and Dr. Lucas Cardiac arrest pt states she was told she went into cardiac arrest during her hip surgery in 02/2022 at [facility] and was "revived". no other details were given. Uizbzau-Eerpd-Bqjun disease follows w/ Dr. Lemus LEG WEAKNESS CURRENT PT/OT FOR - BRACES B/L LEGS Chronic diastolic CHF (congestive heart failure) Chronic low back pain Chronic pain syndrome Cough started about 8 months ago s/p covid-19 virus -- currently treating with augmentin PO bid and prednisone. prednisone to end 05/27/22 and abx to finish on 06/01/22 Depression DM type 2 (diabetes mellitus, type 2) IDDM Dyslipidemia Encephalopathy d/c from [facility] 09/20/19 (hepatic encephalopathy) Gastroparesis GERD (gastroesophageal reflux disease) History of anesthesia reaction REMOTE HX, SIDE EFFECTS : ANXIETY AND SEVERE N/V History of COVID-19 may or june 2021, has cough since. Hx of fall pt. fell in the bathroom at home, pt. wasn't aware of what happen but was told this by her family 02/05/2022 Hypertension Hypothyroidism Irregular heart beat follows Dr. 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 Portal hypertensive gastropathy SOB (shortness of breath) SINCE COVID -8 MON AGO, SOB, COUGH...NO DX...HAS VISIT WITH PULM UPCOMING TO EVALUATE Spondylosis Urinary incontinence UTI (urinary tract infection) FREQUENT/PREVENTATIVE ABX'S CURRENTLY MOST RECENT UTI JANUARY 04 - ABX COMPLETE - ON CURRENT PROPHYLACTIC TX Surgical History History of appendectomy History of back surgery sacral area History of cardiac cath multiple - most recent - 2 years ago @ [facility] History of cataract surgery RT History of colonoscopy History of esophagogastroduodenoscopy (EGD) History of heart artery stent 2 yrs ago @ [facility] > 6 or 7 stents > follows Dr. Lucas History of left hip replacement 02/05/2022 History of total right knee replacement Hx of cholecystectomy S/P CABG x 1 2010 - single vessel S/P CARLOS (total abdominal hysterectomy) Family History Father Coronary heart disease Brother Coronary heart disease Father No problems noted. Mother No problems noted. Other No family history of adverse response to anesthesia Social History Smoking Status: Never smoker Tobacco Type: Cigarettes Second Hand Exposure: Yes; Do You Dip or Chew Tobacco: No; Hx Alcohol Use: No Hx Substance Use: No Preferred Language: Croatian Communication Ability: Effective Farm Hand Required: No Beliefs That Will Affect Care: None marital status: / Current Living Situation: Alone How many Children do You have: 0 Other Information That Helps Us Care for You: No Feels Safe at Home: Yes Safety Concerns: Feels Safe At This Time Assistive Devices: Bedside Commode, Brace/Splint/Immobilizer, Denture - Upper, Glasses, Hospital Bed, Lift Chair and Walker Assistive Devices Comment: Reading glasses Review of Systems Review of Systems: All systems reviewed & are unremarkable except as noted in Subjective Physical Exam Constitutional: well nourished; no acute distress Respiratory: no respiratory distress, no labored breathing and no retractions Auscultation: no crackles, no rales, no rhonchi and no wheezes Cardiovascular: Rate/Rhythm: regular rate and regular rhythm Heart Sounds: normal S1, normal S2 and + murmur (2/6 systolic ejection murmur heard at the base) Vessels: no JVD Extremities: + edema (1+ LLE edema) Gastrointestinal (Abdomen): Inspection/Auscultation: abdomen normal to inspection and normal bowel sounds; abdomen not distended Percussion/Palpation: abdomen soft; abdomen nontender, no guarding and abdomen not rigid Neurologic: CN's II-XI intact bilaterally and moves all extremities; no focal motor deficits Results & Data Vital Signs (Past 12 Hours) Vital Signs Temp Pulse Pulse Resp BP BP BP 02/02/23 07:22 113 H 02/01/23 21:59 109 H 02/01/23 21:29 107 H 02/02/23 07:05 114 H 17 02/01/23 23:00 02/02/23 03:08 37 C 119 H 16 123/73 02/01/23 22:17 37.5 C 109 H 16 122/81 02/01/23 21:49 109 H 18 02/01/23 21:36 36.9 C 105 H 22 123/69 02/01/23 20:30 02/01/23 20:20 02/01/23 20:10 02/01/23 20:00 02/01/23 20:00 96 H 124/69 02/01/23 20:34 Pulse Ox O2 Del Method 02/02/23 07:22 02/01/23 21:59 02/01/23 21:29 02/02/23 07:05 93 Room Air 02/01/23 23:00 Room Air 02/02/23 03:08 92 Room Air 02/01/23 22:17 92 Room Air 02/01/23 21:49 96 Room Air 02/01/23 21:36 95 Room Air 02/01/23 20:30 93 02/01/23 20:20 93 02/01/23 20:10 93 02/01/23 20:00 92 02/01/23 20:00 93 Room Air 02/01/23 20:34 Room Air Laboratory Results Cardiac Enzymes 02/01/23 Range/Units 15:44 AST 19 (13-39) U/L CBC 02/01/23 02/02/23 Range/Units 15:44 06:51 WBC 7.43 10.29 (4.8-10.8) K/ul RBC 4.76 4.24 (4.20-5.40) M/uL Hgb 12.2 10.7 L (12.0-16.0) g/dl Hct 36.4 L 32.3 L (37.0-47.0) % Plt Count 138 154 (130-400) K/uL Neut # (Auto) 4.92 (1.40-6.50) K/uL Lymph # (Auto) 1.22 (1.2-3.4) K/uL [place] # (Auto) 0.72 H (0.11-0.59) K/uL Eos # (Auto) 0.35 (0-0.50) K/uL Baso # (Auto) 0.05 (0-0.2) K/uL Comprehensive Metabolic Panel 02/01/23 02/01/23 Range/Units 15:44 23:20 Sodium 126 L 127 L (136-145) mmol/L Potassium 3.6 (3.5-5.1) mmol/L Chloride 93 L (98-107) mmol/L Carbon Dioxide 25 (21-32) mmol/L BUN 9 (6-23) mg/dl Creatinine 1.20 (0.6-1.2) mg/dl Glucose 164 H (70-99(Fasting)) mg/dl Calcium 9.4 (8.6-10.3) mg/dl AST 19 (13-39) U/L ALT 13 (7-52) U/L Alkaline Phosphatase 129 H (34-104) U/L Total Protein 7.3 (6.0-8.3) gm/dl Albumin 4.1 (3.4-5.0) gm/dl Intake and Output 02/01/23 02/02/23 02/02/23 22:59 06:59 14:59 Intake Total 500 / 600 100 / 600 Output Total 800 / 800 Balance 500 / -200 -700 / -200 Intake: IV 500 / 600 100 / 600 Magnesium Sulfate / D5w 1 gm In 100 / 100 100 ml @ 50 mls/hr IV Q2H [facility] Rx#:[id number] Sodium Chloride 0.9% 500 ml @ 500 / 500 999 mls/hr IV .Q31M [facility] Rx#: [id number] Output: Urine Amount (Catheter) 800 / 800 [place]agher/Indwelling 800 / 800 Other: Other Intake Source NPO Weight 115.1 kg Weight Measurement Method Built in [facility] ECG Additional Comments: ECG: Normal sinus rhythm, left anterior fascicular block, left ventricular hypertrophy. No change when compared to ECG dated 12/29/2022.
[2023-02-02 08:07] LABS: Magnesium 2.3 mg/dl (1.7-2.4)
[2023-02-02 08:32] LABS: Estimated Average Glucose 134 mg/dl; Hemoglobin A1C 6.3 % (4.5-5.6)
[2023-02-02] MEDS ORDERED: PHARMACY GLYCEMIC MGMT CONSULT PRN (08:53)
[2023-02-02] MEDS ORDERED: ASPIRIN 81 MG ECTAB PO SCH (09:00)
[2023-02-02] MEDS ORDERED: ATORVASTATIN 40 MG TAB PO SCH (09:00)
[2023-02-02] MEDS ORDERED: levoFLOXacin 500 MG TAB PO SCH (09:00)
[2023-02-02 09:31] LABS: Albumin Globulin Ratio 1.2 (0.9-2); Albumin Level 3.6 gm/dl (3.4-5.0); BUN Creatinine Ratio 8.7 (10-20); Bilirubin,Total 0.7 mg/dl (0.2-1.0); Calcium 9.3 mg/dl (8.6-10.3); Creatinine Clr Calc Pharmacy 62.7 ml/min; Est GFR (African American) 62.5 ml/min; Est GFR (Non-African American) 53.9 ml/min; Potassium 3.9 mmol/L (3.5-5.1); Total Protein 6.6 gm/dl (6.0-8.3)
--- NOTE | 2023-02-02 09:48 | Anesthesiology Consultation ---
Date of Service February 02, 2023 Assessment & Plan Chart Review Chart Review: Acceptable Risk for Surgery Consults Requested none ASA ASA4 Proposed Anesthesia Anesthesia Type: General History Surgery Operation Date: 02/02/23 09:30 Proposed Procedures p Left Intramedullary Jose Femur(Left) - Tommie Ruiz DO Height/Weight Height: 5 ft 6 in Weight: 115.1 kg Allergies Allergy/AdvReac Type Severity Reaction Status Date / Time propoxyphene Allergy Intermediate Rash Verified 02/01/23 16:28 fentanyl AdvReac Intermediate PANIC Verified 02/01/23 16:28 WANTS TO RUN AND AGGRESSIVE methocarbamol AdvReac Intermediate DELERIUM Verified 02/01/23 16:28 zolpidem AdvReac Intermediate confusion Verified 02/01/23 16:28 Medications Home Medications Medication Instructions Recorded Confirmed Last Taken acetaminophen 325 mg tablet 650 mg PO Q4 PRN Pain (Scale Score 02/19/22 02/01/23 Unknown (Tylenol) 1-3) albuterol sulfate 90 mcg/actuation 2 puff inhalation QID PRN Wheezing 02/19/22 02/01/23 Unknown aerosol inhaler aripiprazole 2 mg tablet 2 mg PO QAM 02/19/22 02/01/23 02/01/23 ascorbic acid (vitamin C) 500 mg 500 mg PO BID 02/19/22 02/01/23 02/01/23 08:00 tablet (Vitamin C) aspirin 81 mg tablet,delayed 81 mg PO QAM 02/19/22 02/01/23 02/01/23 release atorvastatin 40 mg tablet 40 mg PO QAM 02/19/22 02/01/23 02/01/23 clonazepam 0.5 mg tablet 0.5 mg PO TID 02/19/22 02/01/23 02/01/23 08:00 dicyclomine 20 mg tablet 10 mg PO QID PRN ABD PAIN 02/19/22 02/01/23 Unknown dulaglutide 4.5 mg/0.5 mL 4.5 mg subcut WK 02/19/22 02/01/23 01/27/23 subcutaneous pen injector (Trulicity) ergocalciferol (vitamin D2) 1,250 1,250 mcg PO WK 02/19/22 02/01/23 01/30/23 mcg (50,000 unit) capsule (Vitamin D2) estradiol 0.01% (0.1 mg/gram) 1 g vaginal HS 02/19/22 02/01/23 01/31/23 vaginal cream (Estrace) gabapentin 300 mg capsule 300 mg PO BID 02/19/22 02/01/23 02/01/23 08:00 lamotrigine 100 mg tablet 100 mg PO QAM 02/19/22 02/01/23 02/01/23 (Lamictal) lamotrigine 25 mg tablet (Lamictal) See Rx Instructions .Route .COMPLEX 02/19/22 02/01/23 02/01/23 08:00 levothyroxine 88 mcg tablet 88 mcg PO QAM 02/19/22 02/01/23 02/01/23 metoprolol succinate 25 mg 25 mg PO QAM 02/19/22 02/01/23 02/01/23 tablet,extended release 24 hr montelukast 10 mg tablet 10 mg PO QAM 02/19/22 02/01/23 02/01/23 oxycodone 5 mg tablet 5 mg PO Q8 PRN Pain 02/19/22 02/01/23 Unknown pantoprazole 40 mg tablet,delayed 40 mg PO BID 02/19/22 02/01/23 02/01/23 08:00 release rifaximin 550 mg tablet (Xifaxan) 550 mg PO BID 02/19/22 02/01/23 02/01/23 08:00 tamsulosin 0.4 mg capsule 0.4 mg PO QAM 02/19/22 02/01/23 02/01/23 venlafaxine 75 mg capsule,extended 75 mg PO QAM 02/19/22 02/01/23 02/01/23 release 24 hr (Effexor XR) insulin glargine 100 unit/mL (3 30 unit subcut BID 04/09/22 02/01/23 02/01/23 08:00 mL) subcutaneous pen ([place] U-100 Insulin) budesonide-formoterol HFA 160 2 inh inhalation BID 05/24/22 02/01/23 02/01/23 08:00 mcg-4.5 mcg/actuation aerosol inhaler (Symbicort) lactulose 10 gram/15 mL oral 45 g PO BID 05/24/22 02/01/23 Unknown solution torsemide 20 mg tablet 20 mg PO QAM 05/24/22 02/01/23 02/01/23 trazodone 50 mg tablet 50 mg PO HS 05/24/22 02/01/23 01/31/23 famotidine 40 mg tablet 40 mg PO DAILY 12/26/22 02/01/23 02/01/23 fluticasone propionate 50 2 spray intranasal DAILY PRN 12/26/22 02/01/23 Unknown mcg/actuation nasal Congestion spray,suspension ipratropium 0.5 mg-albuterol 3 mg 3 ml inhalation QID 12/26/22 02/01/23 02/01/23 12:00 (2.5 mg base)/3 mL nebulization soln metformin 500 mg tablet,extended 500 mg PO QDD 12/26/22 02/01/23 01/31/23 release 24 hr methenamine hippurate 1 gram tablet 1 g PO BID 12/26/22 02/01/23 02/01/23 08:00 morphine 15 mg tablet,extended 15 mg PO HS PRN Severe Pain (Scale 12/26/22 02/01/23 Unknown release Score 7-10) nitroglycerin 0.4 mg sublingual 0.4 mg sublingual DIRECTED PRN 12/26/22 02/01/23 Unknown tablet (Nitrostat) Chest Pain ondansetron HCl 8 mg tablet 8 mg PO Q8H PRN NAUSEA/VOMITING 12/26/22 02/01/23 U nknown potassium chloride 20 mEq 20 meq PO DAILY 12/26/22 02/01/23 02/01/23 tablet,extended release(part/cryst) (Klor-Con M) spironolactone 50 mg tablet 50 mg PO BID 12/26/22 02/01/23 02/01/23 08:00 sucralfate 1 gram tablet 1 g PO QAM 12/26/22 02/01/23 02/01/23 tiotropium bromide 2.5 2 inh inhalation QAM 12/26/22 02/01/23 02/01/23 mcg/actuation mist for inhalation (Spiriva Respimat) venlafaxine 150 mg 150 mg PO QAM 12/26/22 02/01/23 02/01/23 capsule,extended release 24 hr diclofenac sodium 1 % topical gel 2 g topical BID PRN Pain 02/01/23 02/01/23 Unknown levofloxacin 500 mg tablet 500 mg PO QAM 02/01/23 02/01/23 02/01/23 nystatin 100,000 unit/gram topical 1 applic topical TID 02/01/23 02/01/23 02/01/23 08:00 powder (Nyamyc) nystatin 100,000 unit/mL oral 5 ml mucous membrane QID 02/01/23 02/01/23 02/01/23 12:00 suspension oxybutynin chloride 10 mg 10 mg PO QAM 02/01/23 02/01/23 02/01/23 tablet,extended release 24 hr Active Medications Generic Name Dose Route Start Last Admin Trade Name Mara PRN Reason Stop Dose Admin Acetaminophen 1,000 mg 02/01/23 21:29 02/02/23 07:34 Acetaminophen 500 Mg Tab PO 03/03/23 21:28 1,000 mg TID ANGELLA Administration Albuterol 3 ml 02/01/23 21:29 02/02/23 07:04 Albut/Ipratrop 3mg/0.5mg Neb 3 Ml Vial INH 03/03/23 21:28 3 ml QIDR ANGELLA Administration Protocol Aripiprazole 2 mg 02/02/23 09:00 02/02/23 07:36 Aripiprazole 1 Mg/Ml Oral Soln 150 Ml Btl PO 03/04/23 08:59 2 mg QAM ANGELLA Administration Aspirin 81 mg 02/02/23 09:00 02/02/23 07:43 Aspirin 81 Mg Ectab PO 03/04/23 08:59 81 mg QAM ANGELLA Administration Atorvastatin Calcium 40 mg 02/02/23 09:00 02/02/23 07:37 Atorvastatin 40 Mg Tab PO 03/04/23 08:59 40 mg QAM ANGELLA Administration Clonazepam 0.5 mg 02/01/23 21:29 02/02/23 07:34 Clonazepam 0.5 Mg Tab PO 03/03/23 21:28 0.5 mg TID ANGELLA Administration Fluticasone Propionate 2 sprays 02/02/23 09:00 02/02/23 07:38 Fluticasone Propionate Na Spr 16 Gm Btl NA 03/04/23 08:59 2 sprays DAILY ANGELLA Administration Fluticasone/Vilanterol 1 puffs 02/02/23 09:00 02/02/23 07:39 Fluticasone/Vilanterol 100/25mcg 14 Puffs/Inhaler INH 03/04/23 08:59 1 puffs DAILY ANGELLA Administration Gabapentin 300 mg 02/01/23 21:29 02/02/23 07:36 Gabapentin 300 Mg Cap PO 03/03/23 21:28 300 mg BID ANGELLA Administration Potassium Chloride/Sodium Chloride 20 meq in 1,000 mls @ 50 mls/hr 02/02/23 00:30 02/02/23 00:49 Normal Saline W/20 Meq Kcl IV 02/02/23 20:29 50 mls/hr .Q20H ONE Administration Protocol Insulin Aspart 0 units 02/01/23 21:45 02/02/23 06:25 Insulin Aspart Per Unit Charge SC 03/03/23 21:44 5 units Q6 ANGELLA Administration Lactulose 45 gm 02/01/23 22:00 02/02/23 07:35 Lactulose Syrup 10 Gm/15 Ml Btl 960 Ml PO 03/03/23 21:59 45 gm BID ANGELLA Administration Lamotrigine 25 mg 02/02/23 09:00 02/02/23 07:38 Lamotrigine 25 Mg Tab PO 03/04/23 08:59 25 mg QAM ANGELLA Administration Lamotrigine 100 mg 02/02/23 09:00 02/02/23 07:37 Lamotrigine 100 Mg Tab PO 03/04/23 08:59 100 mg QAM ANGELLA Administration Lamotrigine 50 mg 02/01/23 22:00 02/01/23 22:50 Lamotrigine 25 Mg Tab PO 03/03/23 21:59 50 mg PM ANGELLA Administration Levothyroxine Sodium 88 mcg 02/02/23 06:30 02/02/23 06:21 Levothyroxine Sodium 88 Mcg Tablet PO 03/04/23 06:29 88 mcg DAILYBB ANGELLA Administration Methenamine Hippurate 1 gm 02/01/23 21:29 02/02/23 07:35 Methenamine Hippurate 1 Gm Tab PO 02/11/23 21:28 1 gm BID ANGELLA Administration Metoprolol Succinate 25 mg 02/02/23 09:00 02/02/23 07:37 Metoprolol Succ 25mg Ext Rel Tab PO 03/04/23 08:59 25 mg QAM ANGELLA Administration Montelukast Sodium 10 mg 02/02/23 09:00 02/02/23 07:38 Montelukast Sodium 10 Mg Tablet PO 03/04/23 08:59 10 mg QAM ANGELLA Administration Nystatin 5 ml 02/01/23 21:29 02/02/23 07:34 Nystatin Susp 500,000 U/5 Ml Udc PO 02/11/23 21:28 5 ml QID ANGELLA Administration Nystatin 1 appln 02/01/23 21:29 02/02/23 07:34 Nystatin Powder 15gm Btl EXT 03/03/23 21:28 1 appln TID ANGELLA Administration Oxybutynin Chloride 10 mg 02/02/23 09:00 02/02/23 07:36 Oxybutynin Chloride Xl 5 Mg Tabcr PO 03/04/23 08:59 10 mg QAM ANGELLA Administration Pantoprazole Sodium 40 mg 02/01/23 21:29 02/02/23 07:35 Pantoprazole 40 Mg Tab PO 03/03/23 21:28 40 mg BID ANGELLA Administration Rifaximin 550 mg 02/01/23 21:29 02/02/23 07:36 Rifaximin 550 Mg Tablet PO 03/03/23 21:28 550 mg BID ANGELLA Administration Spironolactone 50 mg 02/01/23 21:29 02/02/23 07:35 Spironolactone 25 Mg Tab PO 03/03/23 21:28 50 mg BID ANGELLA Administration Sucralfate 1 gm 02/02/23 09:00 02/02/23 07:37 Sucralfate 1 Gm Tab PO 03/04/23 08:59 1 gm QAM ANGELLA Administration Tamsulosin HCl 0.4 mg 02/02/23 09:00 02/02/23 07:38 Tamsulosin Hcl 0.4 Mg Cap PO 03/04/23 08:59 0.4 mg QAM ANGELLA Administration Torsemide 20 mg 02/02/23 09:00 02/02/23 07:37 Torsemide 10 Mg Tab PO 03/04/23 08:59 20 mg QAM ANGELLA Administration Trazodone HCl 50 mg 02/01/23 21:29 02/01/23 22:47 Trazodone Hcl 50 Mg Tab PO 03/03/23 21:28 50 mg HS ANGELLA Administration Umeclidinium [place] 1 puffs 02/02/23 09:00 02/02/23 07:38 Umeclidinium [place] 62.5mcg/Blister 7 Puffs/Inhaler INH 03/04/23 08:59 1 puffs QAM ANGELLA Administration Venlafaxine HCl 150 mg 02/02/23 09:00 02/02/23 07:37 Venlafaxine Hcl Xr 150 Mg Capxr PO 03/04/23 08:59 150 mg QAM ANGELLA Administration Venlafaxine HCl 75 mg 02/02/23 09:00 02/02/23 07:38 Venlafaxine Hcl Xr 75 Mg Capxr PO 03/04/23 08:59 75 mg QAM ANGELLA Administration Past Medical History Medical History Anxiety Bipolar disorder CAD (coronary artery disease) History of multiple PCI's to the RCA with subsequent CABG x1 in 2010 x 1 vessel Most recent cardiac testing-negative DSE in December 2017 Follows w/ Dr. Blackwell and Dr. Lucas Cardiac arrest pt states she was told she went into cardiac arrest during her hip surgery in 02/2022 at [facility] and was "revived". no other details were given. Jefhgqs-Fjxgw-Battz disease follows w/ Dr. Lemus LEG WEAKNESS CURRENT PT/OT FOR - BRACES B/L LEGS Chronic diastolic CHF (congestive heart failure) Chronic low back pain Chronic pain syndrome Cough started about 8 months ago s/p covid-19 virus -- currently treating with augmentin PO bid and prednisone. prednisone to end 05/27/22 and abx to finish on 06/01/22 Depression DM type 2 (diabetes mellitus, type 2) IDDM Dyslipidemia Encephalopathy d/c from [facility] 09/20/19 (hepatic encephalopathy) Gastroparesis GERD (gastroesophageal reflux disease) History of anesthesia reaction REMOTE HX, SIDE EFFECTS : ANXIETY AND SEVERE N/V History of COVID-19 may or june 2021, has cough since. Hx of fall pt. fell in the bathroom at home, pt. wasn't aware of what happen but was told this by her family 02/05/2022 Hypertension Hypothyroidism Irregular heart beat follows Dr. 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 Portal hypertensive gastropathy SOB (shortness of breath) SINCE COVID -8 MON AGO, SOB, COUGH...NO DX...HAS VISIT WITH PULM UPCOMING TO EVALUATE Spondylosis Urinary incontinence UTI (urinary tract infection) FREQUENT/PREVENTATIVE ABX'S CURRENTLY MOST RECENT UTI JANUARY 04 - ABX COMPLETE - ON CURRENT PROPHYLACTIC TX Past Family History Family History Father Coronary heart disease Brother Coronary heart disease Father No problems noted. Mother No problems noted. Other No family history of adverse response to anesthesia Past Surgical History Surgical History History of appendectomy History of back surgery sacral area History of cardiac cath multiple - most recent - 2 years ago @ [facility] History of cataract surgery RT History of colonoscopy History of esophagogastroduodenoscopy (EGD) History of heart artery stent 2 yrs ago @ [facility] > 6 or 7 stents > follows Dr. Lucas History of left hip replacement 02/05/2022 History of total right knee replacement Hx of cholecystectomy S/P CABG x 1 2010 - single vessel S/P CARLOS (total abdominal hysterectomy) Social History Smoking Status: Never smoker Do You Dip or Chew Tobacco: No Hx Alcohol Use: No Alcohol type: beer and wine alcohol intake frequency: holidays/special occasions only Hx Substance Use: No substance use type: does not use Physical Exam Vital Signs Last Vital Signs Temp 37.3 C 02/02/23 08:34 Pulse 111 H 02/02/23 08:34 Resp 18 02/02/23 08:34 BP 117/68 02/02/23 08:34 Pulse Ox 91 02/02/23 08:34 O2 Del Method Room Air 02/02/23 08:34 Testing Laboratory Results 02/02/23 06:51 02/02/23 06:51 Hemoglobin A1c 6.3 % (4.5-5.6) H 02/02/23 06:51 Urine Color Yellow 02/01/23 18:30 Urine Appearance Clear (Clear) 02/01/23 18:30 Urine pH 5.5 (4.5-7.5) 02/01/23 18:30 Ur Specific [place] 1.010 (1.000-1.030) 02/01/23 18:30 Urine Protein Negative (Negative) 02/01/23 18:30 Urine Glucose (UA) Negative (Negative) 02/01/23 18:30 Urine Ketones Negative (Negative) 02/01/23 18:30 Urine Nitrite Negative (Negative) 02/01/23 18:30 Ur Leukocyte Esterase 1+ (Negative) H 02/01/23 18:30 Urine WBC (Auto) 10-30 /hpf (0-5) H 02/01/23 18:30 Urine RBC (Auto) 0-4 /hpf (0-4) 02/01/23 18:30 U Hyaline Cast (Auto) 1-5 /lpf (0-5) 02/01/23 18:30 U Epithel Cells (Auto) 20-30 /lpf (0-5) H 02/01/23 18:30 Urine Bacteria (Auto) Negative (Negative) 02/01/23 18:30 02/02/23 02/01/23 06:19 22:22 POC Glucose 238 H 217 H
--- NOTE | 2023-02-02 09:49 | Pharmacy Report ---
Pharmacy Glycemic Short Note 2 - Date of Service February 02, 2023 - Glycemic Short BSG Results (Last 24 hours): 02/01/23 02/01/23 02/02/23 15:44 22:22 06:19 Glucose 164 H POC Glucose 217 H 238 H 02/02/23 06:51 Glucose 229 H POC Glucose OUTPATIENT ANTIDIABETIC REGIMEN: * Lantus 30 units SC BID * Trulicity 4.5 mg SC weekly (Friday) * Metformin 500 mg PO daily w/ dinner HbA1c: 6.3% (02/02/23) ASSESSMENT: * CD is a 72 year old female who presented to ED on 02/01 w/ left hip pain s/p fall * POD #0 s/p ORIF of left femur * BSG this morning of 238 mg/dL - will get conservative basal dose on board p rior to surgery * BSG postoperatively is 224 mg/dL - patient previously did well on Lantus 15 units SC BID per admission in 2021. Will use this dosing for now w/ weight/based stress of 2.5 Novolog * Clear liquid diet ordered postoperatively PLAN FOR INPATIENT GLYCEMIC CONTROL: * Hold outpatient oral diabetes medications * Basal insulin * Lantus 15 units SC BID * Bolus insulin * NovoLog per scale ACHS or Q6hrs while NPO * Goal Range: Low 110 mg/dL - High 140 mg/dL * Correction Factor: 20 mg/dL/unit * Nutritional / Prandial insulin per carb ratio of 1 unit per 7 grams CHO consumed
--- NOTE | 2023-02-02 09:50 | Ultrasound Report ---
US abdomen ltd ascites CLINICAL HISTORY: Abdominal distention. Evaluate for ascites. COMPARISON STUDY: Abdomen and pelvis CT 12/29/2022. FINDINGS: Real-time sonographic imaging of the abdomen was performed with charter representative images submi tted. No ascites identified. IMPRESSION: No ascites. ACT 112: Negative or not required by law. Electronically signed by: Marquez Lindsay M.D. 02/02/2023 9:49 AM
--- NOTE | 2023-02-02 09:50 | Ultrasound Report ---
BILATERAL LOWER EXTREMITY VENOUS DOPPLER HISTORY: eval for DVT. leg swelling COMPARISON STUDY: None. FINDINGS: There is normal compressibility, flow, and augmentation within the visualized bilateral low er extremity deep venous systems. Of note, the calf vessels are not clearly identified due to the pat ient's body habitus. IMPRESSION: No DVT within the visualized right or left lower extremity. ACT 112: Negative or not required by law. Electronically signed by: Marquez Lindsay M.D. 02/02/2023 9:49 AM
--- NOTE | 2023-02-02 09:51 | Ultrasound Report ---
US duplex portal hepatic veins CLINICAL HISTORY: Evaluate for portal venous thrombosis. COMPARISON STUDY: Abdomen and pelvis CT 12/29/2022. FINDINGS: The portal veins are patent and demonstrate normal direction of flow. The right hepatic vei n is patent. The middle and left hepatic veins are not well visualized due to the patient's body habi tus. IMPRESSION: No evidence for portal vein thrombosis. ACT 112: Negative or not required by law. Electronically signed by: Marquez Lindsay M.D. 02/02/2023 9:50 AM
--- NOTE | 2023-02-02 09:52 | Ultrasound Report ---
RENAL ULTRASOUND HISTORY: abdominal distension COMPARISON: Abdomen and pelvis CT 12/29/2022. FINDINGS: Right kidney: Most obscured by overlying bowel gas. Only the upper pole is clearly identified. No def inite hydronephrosis. Normal corticomedullary differentiation and cortical thickness. Left kidney: 10 cm. No hydronephrosis. Normal corticomedullary differentiation and cortical thickness . Bladder: Decompressed by Gallagher catheter and therefore not well visualized IMPRESSION: No definite hydronephrosis. ACT 112: Negative or not required by law. Electronically signed by: Marquez Lindsay M.D. 02/02/2023 9:51 AM
[2023-02-02] MEDS ORDERED: PROPOFOL IV EMULSION 10 MG/ML 20 ML VIAL IV ONE (09:53)
[2023-02-02] MEDS ORDERED: LIDOCAINE 2% 2 ML VIAL/AMP(20MG/ML) INFIL ONE (09:53)
[2023-02-02] MEDS ORDERED: HYDROmorphone INJ 2 MG/ML SYR/VIAL ONE (09:53)
[2023-02-02] MEDS ORDERED: ONDANSETRON INJ 2 MG/ML 2 ML VIAL ONE (09:53)
[2023-02-02] MEDS ORDERED: ePHEDrine sulfate 50 MG/ML AMP IV PRN (09:55)
[2023-02-02] MEDS ORDERED: ONDANSETRON INJ 2 MG/ML 2 ML VIAL IV PRN (09:55)
[2023-02-02] MEDS ORDERED: ATROPINE SULFATE 0.1 MG/ML 10ML SYR IV PRN (09:55)
[2023-02-02] MEDS ORDERED: fentaNYL citrate PF 100 MCG/2 ML VIAL IV PRN (09:55)
[2023-02-02] MEDS ORDERED: HYDROmorphone INJ 2 MG/ML SYR/VIAL IV PRN (09:55)
[2023-02-02] MEDS ORDERED: PROMETHAZINE HCL 12.5 MG in SODIUM CHLORIDE 0.9% 50 ML IV PRN (09:55)
[2023-02-02] MEDS ORDERED: SUCCINYLCHOLINE CHLORIDE 20 MG/ML 10 ML VIAL IV ONE (10:10)
--- NOTE | 2023-02-02 10:23 | History & Physical Bridge Note ---
Date of Service February 02, 2023 History & Physical Bridge Note I have examined the patient, reviewed the History & Physical and in the interval since the performance of the History & Physical I have noted the following changes of clinical significance: no changes noted. I met with the patient and we had a lengthy discussion regarding left femur open reduction internal fixation versus intramedullary nail. Risk include but are not limited to: Infection, neurovascular injury, DVT, nonunion, malunion, hardware failure and need for future surgery. After reviewing these she elected to proceed with surgical intervention and written consent was obtained
--- NOTE | 2023-02-02 10:25 | Orthopedic Consultation ---
Date of Consultation February 02, 2023 Assessment & Plan (1) Femoral distal fracture: N.p.o. Antibiotics on-call the OR Pain control Hold DVT prophylaxis for OR Medical management Plan for or today for left femur open reduction internal fixation versus intramedullary nail History of Present Illness Reason for Consultation: Left distal femur fracture Attending Physician: Rosalia Dumont MD History of Present Illness 72-year-old female presenting with a chief complaint of left leg pain and deformity after sustaining a ground-level fall. She ambulates with a walker at baseline and has a history of Myazvyz-Lieqx-Wxprk. She reports that she fell onto her left side. She does have a history of a previous left hip hemiarthroplasty about a year ago. She does not have any other complaints at this time. Radiographs did show a comminuted fracture involving the left distal femur metaphysis. Orthopedics was consulted for operative management Allergies Allergy/AdvReac Type Severity Reaction Status Date / Time propoxyphene Allergy Intermediate Rash Verified 02/01/23 16:28 fentanyl AdvReac Intermediate PANIC Verified 02/01/23 16:28 WANTS TO RUN AND AGGRESSIVE methocarbamol AdvReac Intermediate DELERIUM Verified 02/01/23 16:28 zolpidem AdvReac Intermediate confusion Verified 02/01/23 16:28 Home Medications Medication Instructions Recorded Confirmed Type acetaminophen 325 mg tablet 650 mg PO Q4 PRN Pain (Scale Score 02/19/22 02/01/23 History (Tylenol) 1-3) albuterol sulfate 90 mcg/actuation 2 puff inhalation QID PRN Wheezing 02/19/22 02/01/23 History aerosol inhaler aripiprazole 2 mg tablet 2 mg PO QAM 02/19/22 02/01/23 History ascorbic acid (vitamin C) 500 mg 500 mg PO BID 02/19/22 02/01/23 History tablet (Vitamin C) aspirin 81 mg tablet,delayed 81 mg PO QAM 02/19/22 02/01/23 History release atorvastatin 40 mg tablet 40 mg PO QAM 02/19/22 02/01/23 History clonazepam 0.5 mg tablet 0.5 mg PO TID 02/19/22 02/01/23 History dicyclomine 20 mg tablet 10 mg PO QID PRN ABD PAIN 02/19/22 02/01/23 History dulaglutide 4.5 mg/0.5 mL 4.5 mg subcut WK 02/19/22 02/01/23 History subcutaneous pen injector (Trulicity) ergocalciferol (vitamin D2) 1,250 1,250 mcg PO WK 02/19/22 02/01/23 History mcg (50,000 unit) capsule (Vitamin D2) estradiol 0.01% (0.1 mg/gram) 1 g vaginal HS 02/19/22 02/01/23 History vaginal cream (Estrace) gabapentin 300 mg capsule 300 mg PO BID 02/19/22 02/01/23 History lamotrigine 100 mg tablet 100 mg PO QAM 02/19/22 02/01/23 History (Lamictal) lamotrigine 25 mg tablet (Lamictal) See Rx Instructions .Route .COMPLEX 02/19/22 02/01/23 History levothyroxine 88 mcg tablet 88 mcg PO QAM 02/19/22 02/01/23 History metoprolol succinate 25 mg 25 mg PO QAM 02/19/22 02/01/23 History tablet,extended release 24 hr montelukast 10 mg tablet 10 mg PO QAM 02/19/22 02/01/23 History oxycodone 5 mg tablet 5 mg PO Q8 PRN Pain 02/19/22 02/01/23 History pantoprazole 40 mg tablet,delayed 40 mg PO BID 02/19/22 02/01/23 History release rifaximin 550 mg tablet (Xifaxan) 550 mg PO BID 02/19/22 02/01/23 History tamsulosin 0.4 mg capsule 0.4 mg PO QAM 02/19/22 02/01/23 History venlafaxine 75 mg capsule,extended 75 mg PO QAM 02/19/22 02/01/23 History release 24 hr (Effexor XR) insulin glargine 100 unit/mL (3 30 unit subcut BID 04/09/22 02/01/23 History mL) subcutaneous pen (Basaglar KwikPen U-100 Insulin) budesonide-formoterol HFA 160 2 inh inhalation BID 05/24/22 02/01/23 History mcg-4.5 mcg/actuation aerosol inhaler (Symbicort) lactulose 10 gram/15 mL oral 45 g PO BID 05/24/22 02/01/23 History solution torsemide 20 mg tablet 20 mg PO QAM 05/24/22 02/01/23 History trazodone 50 mg tablet 50 mg PO HS 05/24/22 02/01/23 History famotidine 40 mg tablet 40 mg PO DAILY 12/26/22 02/01/23 History fluticasone propionate 50 2 spray intranasal DAILY PRN 12/26/22 02/01/23 History mcg/actuation nasal Congestion spray,suspension ipratropium 0.5 mg-albuterol 3 mg 3 ml inhalation QID 12/26/22 02/01/23 History (2.5 mg base)/3 mL nebulization soln metformin 500 mg tablet,extended 500 mg PO QDD 12/26/22 02/01/23 History release 24 hr methenamine hippurate 1 gram tablet 1 g PO BID 12/26/22 02/01/23 History morphine 15 mg tablet,extended 15 mg PO HS PRN Severe Pain (Scale 12/26/22 02/01/23 History release Score 7-10) nitroglycerin 0.4 mg sublingual 0.4 mg sublingual DIRECTED PRN 12/26/22 02/01/23 History tablet (Nitrostat) Chest Pain ondansetron HCl 8 mg tablet 8 mg PO Q8H PRN NAUSEA/VOMITING 12/26/22 02/01/23 History potassium chloride 20 mEq 20 meq PO DAILY 12/26/22 02/01/23 History tablet,extended release(part/cryst) (Klor-Con M) spironolactone 50 mg tablet 50 mg PO BID 12/26/22 02/01/23 History sucralfate 1 gram tablet 1 g PO QAM 12/26/22 02/01/23 History tiotropium bromide 2.5 2 inh inhalation QAM 12/26/22 02/01/23 History mcg/actuation mist for inhalation (Spiriva Respimat) venlafaxine 150 mg 150 mg PO QAM 12/26/22 02/01/23 History capsule,extended release 24 hr diclofenac sodium 1 % topical gel 2 g topical BID PRN Pain 02/01/23 02/01/23 History levofloxacin 500 mg tablet 500 mg PO QAM 02/01/23 02/01/23 History nystatin 100,000 unit/gram topical 1 applic topical TID 02/01/23 02/01/23 History powder ([facility]) nystatin 100,000 unit/mL oral 5 ml mucous membrane QID 02/01/23 02/01/23 History suspension oxybutynin chloride 10 mg 10 mg PO QAM 02/01/23 02/01/23 History tablet,extended release 24 hr Patient History Medical History Anxiety Bipolar disorder CAD (coronary artery disease) History of multiple PCI's to the RCA with subsequent CABG x1 in 2010 x 1 vessel Most recent cardiac testing-negative DSE in December 2017 Follows w/ Dr. Blackwell and Dr. Lucas Cardiac arrest pt states she was told she went into cardiac arrest during her hip surgery in 02/2022 at [facility] and was "revived". no other details were given. Hfhrnhb-Ariak-Qmxqg disease follows w/ Dr. Lemus LEG WEAKNESS CURRENT PT/OT FOR - BRACES B/L LEGS Chronic diastolic CHF (congestive heart failure) Chronic low back pain Chronic pain syndrome Cough started about 8 months ago s/p covid-19 virus -- currently treating with augmentin PO bid and prednisone. prednisone to end 05/27/22 and abx to finish on 06/01/22 Depression DM type 2 (diabetes mellitus, type 2) IDDM Dyslipidemia Encephalopathy d/c from [facility] 09/20/19 (hepatic encephalopathy) Gastroparesis GERD (gastroesophageal reflux disease) History of anesthesia reaction REMOTE HX, SIDE EFFECTS : ANXIETY AND SEVERE N/V History of COVID-19 may or june 2021, has cough since. Hx of fall pt. fell in the bathroom at home, pt. wasn't aware of what happen but was told this by her family 02/05/2022 Hypertension Hypothyroidism Irregular heart beat follows Dr. 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 Portal hypertensive gastropathy SOB (shortness of breath) SINCE COVID -8 MON AGO, SOB, COUGH...NO DX...HAS VISIT WITH PULM UPCOMING TO EVALUATE Spondylosis Urinary incontinence UTI (urinary tract infection) FREQUENT/PREVENTATIVE ABX'S CURRENTLY MOST RECENT UTI JANUARY 04 - ABX COMPLETE - ON CURRENT PROPHYLACTIC TX Surgical History History of appendectomy History of back surgery sacral area History of cardiac cath multiple - most recent - 2 years ago @ [place] - FOR CP History of cataract surgery RT History of colonoscopy History of esophagogastroduodenoscopy (EGD) History of heart artery stent 2 yrs ago @ [facility] > 6 or 7 stents > follows Dr. Lucas History of left hip replacement 02/05/2022 History of total right knee replacement Hx of cholecystectomy S/P CABG x 1 2010 - single vessel S/P CARLOS (total abdominal hysterectomy) Family History Father Coronary heart disease Brother Coronary heart disease Father No problems noted. Mother No problems noted. Other No family history of adverse response to anesthesia Social History Smoking Status: Never smoker Tobacco Type: Cigarettes Second Hand Exposure: Yes; Do You Dip or Chew Tobacco: No; Hx Alcohol Use: No Hx Substance Use: No Preferred Language: Tajik Communication Ability: Effective Baker Test Required: No Beliefs That Will Affect Care: None marital status: / Current Living Situation: Alone How many Children do You have: 0 Other Information That Helps Us Care for You: No Feels Safe at Home: Yes Safety Concerns: Feels Safe At This Time Assistive Devices: Bedside Commode, Brace/Splint/Immobilizer, Denture - Upper, Glasses, Hospital Bed, Lift Chair and Walker Assistive Devices Comment: Reading glasses Physical Exam Constitutional: No acute distress, alert and oriented to person place and time Musculoskeletal: Left lower extremity is in a knee immobilizer. There is swelling and ecchymosis overlying the distal femur. Tenderness to palpation. Patient is able to wiggle her toes. Does have limited sensation distally secondary to her CMT. Palpable dorsalis pedis and posterior tibial pulses with brisk capillary refill Results & Data Vital Signs (Past 12 Hours) Vital Signs Temp Pulse Pulse Resp BP BP Pulse Ox 02/02/23 08:34 37.3 C 111 H 18 117/68 91 02/02/23 07:22 113 H 02/02/23 07:05 114 H 17 93 02/01/23 23:00 02/02/23 03:08 37 C 119 H 16 123/73 92 O2 Del Method 02/02/23 08:34 Room Air 02/02/23 07:22 02/02/23 07:05 Room Air 02/01/23 23:00 Room Air 02/02/23 03:08 Room Air Diagnostic Findings Comminuted extra-articular left distal femur fracture (1) Femoral distal fracture Encounter type: initial encounter Fracture morphology: unspecified fracture morphology Fracture type: closed Laterality: left Qualified Code(s): S72.402A - Unspecified fracture of lower end of left femur, initial encounter for closed fracture
[2023-02-02] MEDS ORDERED: ceFAZolin 330 MG/ML 1 GM VIAL ONE ×2 (10:30→10:31)
[2023-02-02] MEDS ORDERED: PHENYLEPHRINE 100MCG/ML 5ML SYR ONE (11:16)
[2023-02-02] MEDS ORDERED: ROCURONIUM BROMIDE 10 MG/ML 5 ML VIAL IV ONE (11:17)
--- NOTE | 2023-02-02 11:17 | Electrocardiogram Report ---
Test Reason : Blood Pressure : / mmHG Vent. Rate : 087 BPM Atrial Rate : 087 BPM P-R Int : 176 ms QRS Dur : 102 ms QT Int : 380 ms P-R-T Axes : 055 -64 084 degrees QTc Int : 457 ms Normal sinus rhythm Left anterior fascicular block Minimal voltage criteria for LVH, may be normal variant ( Atlas product ) Cannot rule out Inferior infarct (masked by fascicular block?) , age undetermined Abnormal ECG When compared with ECG of 29-DEC-2022 14:00, QT has lengthened Confirmed by Jaron Burks ([id number]) on 02/02/2023 11:16:36 AM Referred By: REFERRED SELF Confirmed By:Jaron Burks
--- NOTE | 2023-02-02 12:48 | Fluoroscopy Report ---
FL femur LT 2V CLINICAL HISTORY: ORIF/IM NAIL IN OR. Left femur fracture. COMPARISON STUDY: Left femur 02/01/2023. FLUOROSCOPY TIME: 142 seconds. FLUOROSCOPY IMAGES: 6 images. Ka,r: 20.2 mGy FINDINGS: Status post internal fixation of a distal femoral fracture with a lateral cortical plate an d screws. The hardware appears intact. There is near-anatomic alignment. IMPRESSION: Fluoroscopic assistance as above. ACT 112: Negative or not required by law. Electronically signed by: Marquez Lindsay M.D. 02/02/2023 12:46 PM
--- NOTE | 2023-02-02 12:55 | Post Operative Brief Note ---
Immediate Post Op Note v1 Date of Surgery February 02, 2023 Pre & Post Diagnosis Operation Date: 02/02/23 09:30 Pre-Op Diagnosis: Left Femoral Distal Fracture Post-Op Diagnosis: Left Femoral Distal Fracture I identified the patient and participated in the time-out.: Yes Procedure Operation Date: 02/02/23 09:30 Actual Procedures p Left Femur Open Reduction Internal Fixation(Left) - Tommie Ruiz DO Surgeon Tommie Ruiz DO App[employer] none Estimated Blood Loss 250 Findings Consistent with Post-Op Diagnosis see dictation Drains Gallagher Catheter (catheter present from floor) Complications none
[2023-02-02] MEDS ORDERED: HYDROmorphone INJ 1 MG/ML SYRINGE ONE (13:27)
--- NOTE | 2023-02-02 13:49 | Operative Report ---
Post Operative Report Pre & Post Diagnosis Operation Date: 02/02/23 09:30 Pre-Op Diagnosis: Left Femoral Distal Fracture Post-Op Diagnosis: Left Femoral Distal Fracture I identified the patient and participated in the time-out.: Yes Procedure Operation Date: 02/02/23 09:30 Actual Procedures p Left Femur Open Reduction Internal Fixation(Left) - Tommie Ruiz DO Surgeon Tommie Ruiz DO Separating Machine Operator none Estimated Blood Loss 250 Findings Consistent with Post-Op Diagnosis See dictation Specimens None Complications None Indications 72-year-old female presenting after sustaining a ground-level fall onto her left side. In the emergency department she was found to have a comminuted distal third femoral shaft fracture extending into the metaphysis. She previously had a history of a left hip hemiarthroplasty approximately a year ago. At baseline she does use a walker to ambulate and has a history of Kznfzxg-Uejex-Monum. I did discuss with the patient that given her injury I would certainly recommend open reduction internal fixation of her fracture. Risk benefits and complications were discussed. After reviewing these she elected proceed with surgical intervention and written consent was obtained. Description of Procedure Implants: Synthes 16 hole 4.5 mm variable angle LCP curved condylar plate, thirteen 5.0 mm locking screws, one 4.5 mm cortical screw Patient was appropriate identified in the preoperative holding area and the left lower extremity was marked. She was then taken back to the operative suite where she received antibiotics per protocol as well as general anesthesia. She was positioned supine on the regular OR table. She was then prepped and draped in the standard orthopedic fashion a timeout was then performed. The leg was then placed on a radiolucent triangle. A lateral incision was then made over the distal femur and incision was carried out down to the IT band fascia which was then split in line with the incision. Fracture hematoma was then encounte red and evacuated. This allowed exposure of the distal femur as well as fracture site there was noted to be significant comminution. Decision was then made to approach the fracture with a LCP plate using the less invasive Synthes system. Plate was then attached to an outrigger. The plate was then provisionally pinned to the distal femoral segment and a conical screw was then placed once it was in satisfactory position helps the plate down to bone. Patient was noted to have poor bone quality. Therefore an additional conical screw was then placed. This helped to provide further stability. Radiographs were then used to assess position of the plate proximally and it was noted to be in satisfactory position. A single cortical screw was then placed above the fracture site to help compress the plate down to bone. As result of this the plate was compressed down to bone and noted to be in satisfactory position. There was noted be a slight medialization of the distal femoral segment. A reduction tenaculum was then used to help reduce the distal femur down to the lateral plate. Locking screws were then drilled and placed in the distal femur. The 2 conical screws were then exchanged for a locking screws. Attention was then turned to proximal fixation. Additional locking screws were then placed using the MIPO technique the screws were placed below the femoral stem. Additional screws were then placed unit cortically at the lateral cement interface of the stem to help avoid stress risers. This provided satisfactory reduction of the fracture and positioning of the plate. Final radiographs were then obtained demonstrating satisfactory position and reduction of the fracture. Wounds were then copiously irrigated using normal saline solution. Approximately 10 cc of DBX was injected into the fracture site. 0 Vicryl was then used to close the deep fascia followed by 2 oh strata fix for the subcutaneous tissue and daniel for the skin. 3-0 nylon was then used to close all of the percutaneous incisions for the proximal screws. Sterile Silverlon dressings were then placed. The patient tolerated the procedure well was taken the recovery room in hemodynamically stable condition Due to the patient's large size and morbid obesity additional surgical time and complexity was required. Additional time was required for anesthesia, patient positioning, draping, soft tissue management, surgical exposure, soft tissue management and retraction as well as the procedures itself and soft tissue closure. This added approximately 25% increase time to the procedure I attest to the content of the Intraoperative Record and any orders documented therein. Any exceptions are noted below.
--- NOTE | 2023-02-02 14:15 | Anesthesiology Progress Note ---
Date of Service February 02, 2023 Anesthesia Post Procedure Vital Signs Vital Signs: Temp Pulse Pulse Pulse Resp BP BP 02/02/23 14:00 101 H 17 02/02/23 13:50 102 H 15 02/02/23 13:40 37.3 C 101 H 13 02/02/23 13:30 100 H 15 02/02/23 13:20 98 H 19 02/02/23 13:10 97 H 16 02/02/23 13:02 36.1 C L 95 H 16 02/02/23 07:30 02/02/23 08:34 37.3 C 111 H 18 02/02/23 07:22 113 H 02/01/23 21:59 109 H 02/01/23 21:29 107 H 02/02/23 07:05 114 H 17 02/01/23 23:00 02/02/23 03:08 37 C 119 H 16 123/73 02/01/23 22:17 37.5 C 109 H 16 122/81 02/01/23 21:49 109 H 18 02/01/23 21:36 36.9 C 105 H 22 02/01/23 20:30 02/01/23 20:20 02/01/23 20:10 02/01/23 20:00 02/01/23 20:00 96 H 124/69 02/01/23 19:38 96 H 122/91 02/01/23 20:34 02/01/23 19:30 85 122/91 02/01/23 17:00 82 24 138/76 02/01/23 17:11 36.8 C 81 18 02/01/23 16:23 79 20 02/01/23 15:58 84 02/01/23 15:36 36.8 C 85 18 02/01/23 15:36 36.8 C 86 18 103/75 BP Pulse Ox O2 Del Method O2 Flow Rate 02/02/23 14:00 107/62 95 Nasal Cannula 2 02/02/23 13:50 101/61 96 Nasal Cannula 2 02/02/23 13:40 115/61 99 Oxymask 2 02/02/23 13:30 111/72 99 Oxymask 4 02/02/23 13:20 118/75 99 Oxymask 4 02/02/23 13:10 118/65 99 Oxymask 6 02/02/23 13:02 100/62 95 Oxymask 8 02/02/23 07:30 Room Air 02/02/23 08:34 117/68 91 Room Air 02/02/23 07:22 02/01/23 21:59 02/01/23 21:29 02/02/23 07:05 93 Room Air 02/01/23 23:00 Room Air 02/02/23 03:08 92 Room Air 02/01/23 22:17 92 Room Air 02/01/23 21:49 96 Room Air 02/01/23 21:36 123/69 95 Room Air 02/01/23 20:30 93 02/01/23 20:20 93 02/01/23 20:10 93 02/01/23 20:00 92 02/01/23 20:00 93 Room Air 02/01/23 19:38 93 Room Air 02/01/23 20:34 Room Air 02/01/23 19:30 92 Room Air 02/01/23 17:00 92 02/01/23 17:11 138/76 93 Room Air 02/01/23 16:23 97 Room Air 02/01/23 15:58 02/01/23 15:36 103/75 98 Room Air 02/01/23 15:36 98 Room Air Pain Intensity Left Hip: Pain Intensity: 4 Transfer of Care Handoff Completed per policy Notes Mental Status: alert / awake / arousable and participated in evaluation Patient Amnestic to Procedure: Yes Nausea / Vomiting: adequately controlled Pain: adequately controlled Airway Patency, RR, SpO2: stable & adequate BP & HR: stable & adequate Hydration State: stable & adequate Anesthetic Complications: no major complications apparent
[2023-02-02] MEDS: SODIUM CHLORIDE 0.9% 1000ML 1,000 ML IV SCH (14:42)
--- NOTE | 2023-02-02 15:15 | Hospitalist Progress Note ---
Date of Service February 02, 2023 Assessment & Plan (1) Femoral distal fracture: Plan: Appreciate Cardiology input for optimization and risk stratifcation Patient went to OR today for ORIF and IM nail placement Will monitor on telemetry, previously patient went into A fib post operatively and also had hospital delirium (2) UTI (urinary tract infection): Plan: -currently on levaquin. Low grade temp per family. -Follow up urine culture and blood culture -recurrent UTI, sees Urology -continue flomax, oxybutynin (3) Encounter for pre-operative examination: (4) Abdominal distension: Plan: -History of GONZALEZ cirrhosis. -Difficult to assess fluid status on exam due to patient's body size and habitus -Family feels patient's abdomen and legs are more swollen--> bilateral lower extremity ultrasound negative for DVT, Abdominal ultrasound negative for ascites, Portal venous u/s negative for thrombus -continue torsemide, spironolactone, rifaxamin, lactulose Plan CAD with prior CABG Moderate -continue statin, aspirin Questionable reactive airway disease -continue inhaler/nebulizers (family states patient carries a diagnosis of "COPD" but never had formal testing) T2DM Gastroparesis Neuropathy -continue gabapentin -hold trulicity -reduce lantus to: 10unit BID while she is NPO (home dose is 30 unit BID) -glycemic pharmacy management Anxiety Depression bipolar disorder -continue home medications Chronic back pain -continue MS contin 15mg QHS PRN, oxycodone 5mg Q 8 PRN Hypothyroidism -continue synthroid DVT ppx SCDs for now Dispo- Will need PT/OT evaluation for discharge planning Code status- full for now, discussed with daughters Admission and Anticipated Discharge Date Admission Date: February 01, 2023 Subjective Went to OR today for ORIF and IM nail placement Patient seen in her room at 3pm. She is very drowsy but awakens to voice Daughter Radah was called and updated (Carolyn's phone went straight to voicemail). Review of Systems Review of Systems: Unable to obtain due to drowsiness Physical Exam Physical Exam: drowsy but arousable to voice but then falls back asleep Respiratory: breathing comfortably on 2L NC Cardiovascular: tachycardic but regular, no murmurs/rubs Gastrointestinal (Abdomen): soft, non tender, obese Musculoskeletal: left leg in brace, no pitting edema Neurologic: drowsy but arousable Results & Data Results & Data Vital Signs (Past 12 Hours) Vital Signs Temp Pulse Pulse Pulse Resp BP Pulse Ox 02/02/23 14:45 37 C 102 H 20 102/59 L 99 02/02/23 14:33 36.9 C 105 H 18 106/75 95 02/02/23 14:17 37.1 C 108 H 20 103/69 95 02/02/23 14:00 101 H 17 107/62 95 02/02/23 13:50 102 H 15 101/61 96 02/02/23 13:40 37.3 C 101 H 13 115/61 99 02/02/23 13:30 100 H 15 111/72 99 02/02/23 13:20 98 H 19 118/75 99 02/02/23 13:10 97 H 16 118/65 99 02/02/23 13:02 36.1 C L 95 H 16 100/62 95 02/02/23 07:30 02/02/23 08:34 37.3 C 111 H 18 117/68 91 02/02/23 07:22 113 H 02/02/23 07:05 114 H 17 93 O2 Del Method O2 Flow Rate 02/02/23 14:45 Nasal Cannula 2 02/02/23 14:33 Nasal Cannula 2 02/02/23 14:17 Nasal Cannula 2 02/02/23 14:00 Nasal Cannula 2 02/02/23 13:50 Nasal Cannula 2 02/02/23 13:40 Oxymask 2 02/02/23 13:30 Oxymask 4 02/02/23 13:20 Oxymask 4 02/02/23 13:10 Oxymask 6 02/02/23 13:02 Oxymask 8 02/02/23 07:30 Room Air 02/02/23 08:34 Room Air 02/02/23 07:22 02/02/23 07:05 Room Air (1) Femoral distal fracture Encounter type: initial encounter Fracture morphology: unspecified fracture morphology Fracture type: closed Laterality: left Qualified Code(s): S72.402A - Unspecified fracture of lower end of left femur, initial encounter for closed fracture (2) UTI (urinary tract infection) Hematuria presence: without hematuria Urinary tract infection type: site unspecified Qualified Code(s): N39.0 - Urinary tract infection, site not specified
[2023-02-02] MEDS ORDERED: Nursing to Pharmacy Communication SCH (15:45)
[2023-02-02] MEDS: ceFAZolin 2000MG 2,000 MG/15 ML SYR IV SCH (18:09)
[2023-02-02] MEDS: traZODone HCL 50 MG TAB PO SCH (20:53)
[2023-02-02] MEDS: ASPIRIN 81 MG ECTAB PO SCH (20:55)
[2023-02-02] MEDS ORDERED: LANTUS PER UNIT CHARGE SC SCH (21:00)
[2023-02-03] MEDS: INSULIN ASPART PER UNIT CHARGE SC SCH ×6 (00:12→22:06)
[2023-02-03] MEDS: SODIUM CHLORIDE 0.9% 1000ML 1,000 ML IV SCH ×2 (00:13→10:33)
[2023-02-03] MEDS: ceFAZolin 2000MG 2,000 MG/15 ML SYR IV SCH (02:55)
[2023-02-03] MEDS ORDERED: KETOROLAC TROMETHAMINE 15 MG/ML VIAL IV ONE (04:51)
--- NOTE | 2023-02-03 04:59 | Communication Note ---
Date of Service: February 03, 2023 Patient tachycardic and febrile as per RN. Patient without unusual cough, abdominal/flank pain, diarrhea symptoms as per RN. UA wbc est AP Sepsis secondary to complicated UTI History recurrent UTI on methenamine suppression Rx Recent Levaquin Rx (hx ESBL, VRE UTI as per records) Follow urine CS, Daptomycin, Ertapenem on the basis of microbiologic history
[2023-02-03] MEDS ORDERED: ERTAPENEM SODIUM 1,000 MG in SYRINGE 0 ML IV SCH (05:00)
[2023-02-03] MEDS: ACETAMINOPHEN 500 MG TAB PO SCH ×3 (05:12→21:47)
[2023-02-03] MEDS: LEVOTHYROXINE SODIUM 88 MCG TABLET PO SCH (05:13)
[2023-02-03] MEDS: DAPTOmycin 500 MG in SYRINGE 0 ML IV SCH (05:30)
[2023-02-03 05:43] LABS: Appearance Urine Turbid (Clear); Bacteria Urine Automated Negative (Negative); Bilirubin Urine Negative (Negative); Blood Urine 2+ (Negative); Color Urine Dark Yellow; Epithelial Cell Urine Auto >30 /lpf (0-5); Glucose Urine UA Negative (Negative); Ketones Urine Trace (Negative); Leukocyte Esterase Urine 2+ (Negative); Nitrite Urine Negative (Negative); Protein Urine 1+ (Negative); Specific Gravity Urine 1.026 (1.000-1.030); Urobilinogen Urine Negative (Negative); WBC Urine Automated >30 /hpf (0-5); pH Urine 5.5 (4.5-7.5)
[2023-02-03] MEDS: ALBUT/IPRATROP 3MG/0.5MG NEB 3 ML VIAL INH SCH ×4 (06:54→19:39)
[2023-02-03] MEDS: METOPROLOL SUCC 25MG EXT REL TAB PO SCH (07:40)
[2023-02-03] MEDS ORDERED: SODIUM CHLORIDE 0.9% 1000ML 1,000 ML IV ONE (07:53)
[2023-02-03] MEDS: LANTUS PER UNIT CHARGE SC SCH ×2 (08:32→22:06)
[2023-02-03 08:44] LABS: Basophils # (auto) 0.05 K/uL (0-0.2); Basophils % (auto) 0.3 %; Eosinophils # (auto) 0.01 K/uL (0-0.50); Eosinophils % (auto) 0.1 %; Hematocrit (blood only) 24.3 % (37.0-47.0); Hemoglobin 8.1 g/dl (12.0-16.0); Lymphocytes # (auto) 1.62 K/uL (1.2-3.4); Lymphocytes % (auto) 10.6 %; Mean Corpuscular Hemoglobin 25.6 pg (25.0-34.0); Mean Corpuscular Hgb Conc 33.3 g/dL (32.0-36.0); Mean Corpuscular Volume 76.7 fL (80.0-100.0); Mean Platelet Volume 9.8 fL (9.4-12.4); Monocytes # (auto) 1.56 K/uL (0.11-0.59); Monocytes % (auto) 10.2 %; Neutrophils # (auto) 11.68 K/uL (1.40-6.50); Neutrophils % (auto) 76.8 %; Platelet Count 135 K/uL (130-400); RDW Coefficient of Variation 17.2 % (11.5-14.5); RDW Standard Deviation 47.8 fL (36.4-46.3); Red Blood Count 3.17 M/uL (4.20-5.40); White Blood Count 15.22 K/ul (4.8-10.8)
[2023-02-03 08:48] LABS: Albumin Globulin Ratio 1.2 (0.9-2); BUN Creatinine Ratio 10.5 (10-20); Bilirubin,Total 0.6 mg/dl (0.2-1.0); Calcium 8.6 mg/dl (8.6-10.3); Creatinine Clr Calc Pharmacy 42.5 ml/min; Est GFR (African American) 38.7 ml/min; Est GFR (Non-African American) 33.4 ml/min; Globulin 2.6 gm/dl (2.5-4.0); Magnesium 2.1 mg/dl (1.7-2.4); Total Protein 5.6 gm/dl (6.0-8.3)
--- NOTE | 2023-02-03 08:53 | Pharmacy Report ---
Pharmacy Glycemic Short Note 2 - Date of Service February 03, 2023 - Glycemic Short BSG Results (Last 24 hours): 02/02/23 02/02/23 02/02/23 06:51 13:07 14:36 Glucose 229 H POC Glucose 224 H 246 H 02/02/23 02/02/23 02/02/23 16:51 20:24 20:26 Glucose POC Glucose 277 H 307 H* 307 H* 02/02/23 02/02/23 02/03/23 22:22 23:59 03:18 Glucose POC Glucose 303 H* 261 H 242 H 02/03/23 02/03/23 07:56 08:08 Glucose 158 H POC Glucose 176 H OUTPATIENT ANTIDIABETIC REGIMEN: * Lantus 30 units SC BID * Trulicity 4.5 mg SC weekly (Friday) * Metformin 500 mg PO daily w/ dinner * HbA1c: 6.3% (02/02/23) ASSESSMENT: 02/03 * 80 units SQ insulin given over the last 24 hrs while mostly NPO * Fasting BSG 176 this AM with 30 units basal on board and after receiving 28 units correctional insulin overnight. Will titrate up basal insulin * Post-prandial BSG elevated following dinner yesterday, however this may have been due to basal deficiency. Correctional and prandial doses were increased as a result yesterday - will continue for now and following BSG trends today 02/02 * CD is a 72 year old female who presented to ED on 02/01 w/ left hip pain s/p fall * POD #0 s/p ORIF of left femur * BSG this morning of 238 mg/dL - will get conservative basal dose on board prior to surgery * BSG postoperatively is 224 mg/dL - patient previously did well on Lantus 15 units SC BID per admission in 2021. Will use this dosing for now w/ weight/based stress of 2.5 Novolog * Clear liquid diet ordered postoperatively PLAN FOR INPATIENT GLYCEMIC CONTROL: * Hold outpatient diabetes medications (metformin, dulaglutide) * Basal insulin * Lantus 20 units SC BID * Bolus insulin * NovoLog per scale ACHS or Q6hrs while NPO * Goal Range: Low 110 mg/dL - High 140 mg/dL * Correction Factor: 15 mg/dL/unit * Nutritional / Prandial insulin per carb ratio of 1 unit per 5 grams CHO consumed
[2023-02-03 09:07] LABS: Ferritin 40.7 ng/ml (8-388)
[2023-02-03 09:10] LABS: Folate (Folic Acid),Ser orPlas > 22.30 ng/ml (>5.38)
[2023-02-03 09:11] LABS: Vitamin B12 243 pg/ml (180-914)
[2023-02-03] MEDS: TORSEMIDE 10 MG TAB PO SCH (09:16)
[2023-02-03] MEDS: FLUTICASONE PROPIONATE NA SPR 16 GM BTL SCH (09:25)
[2023-02-03] MEDS: clonazePAM 0.5 MG TAB PO SCH (09:25)
[2023-02-03] MEDS: LACTULOSE SYRUP 10 GM/15 ML BTL 960 ML PO SCH ×2 (09:26→21:46)
[2023-02-03] MEDS: NYSTATIN SUSP 500,000 U/5 ML UDC PO SCH ×4 (09:26→21:46)
[2023-02-03] MEDS: PANTOprazole 40 MG TAB PO SCH ×2 (09:27→21:47)
[2023-02-03] MEDS: SUCRALFATE 1 GM TAB PO SCH (09:27)
[2023-02-03] MEDS: rifAXIMin 550 MG TABLET PO SCH ×2 (09:27→21:47)
[2023-02-03] MEDS: GABAPENTIN 300 MG CAP PO SCH ×2 (09:28→21:53)
[2023-02-03] MEDS: FLUTICASONE/VILANTEROL 100/25MCG 14 PUFFS/INHALER INH SCH (09:30)
[2023-02-03] MEDS: NYSTATIN POWDER 15GM BTL EXT SCH ×3 (09:31→21:49)
[2023-02-03] MEDS: OXYBUTYNIN CHLORIDE XL 5 MG TABCR PO SCH (09:32)
[2023-02-03] MEDS: ARIPIprazole 1 MG/ML ORAL SOLN 150 ML BTL PO SCH (09:32)
[2023-02-03] MEDS: ASPIRIN 81 MG ECTAB PO SCH ×2 (09:33→21:54)
[2023-02-03] MEDS: lamoTRIgine 100 MG TAB PO SCH (09:33)
[2023-02-03] MEDS: VENLAFAXINE HCL XR 150 MG CAPXR PO SCH (09:33)
[2023-02-03] MEDS: MONTELUKAST SODIUM 10 MG TABLET PO SCH (09:33)
[2023-02-03] MEDS: UMECLIDINIUM BROMIDE 62.5MCG/BLISTER 7 PUFFS/INHALER INH SCH (09:34)
[2023-02-03] MEDS: VENLAFAXINE HCL XR 75 MG CAPXR PO SCH (09:34)
[2023-02-03] MEDS: lamoTRIgine 25 MG TAB PO SCH ×2 (09:34→21:48)
[2023-02-03] MEDS: TAMSULOSIN HCL 0.4 MG CAP PO SCH (09:34)
--- NOTE | 2023-02-03 10:09 | Hospitalist Progress Note ---
Date of Service February 03, 2023 Assessment & Plan (1) Femoral distal fracture: Plan: Appreciate Cardiology input for optimization and risk stratifcation Patient went to OR 02/02 for ORIF Will monitor on telemetry, previously patient went into A fib post operatively and also had hospital delirium (2) UTI (urinary tract infection): Plan: Was previously on ciprofloxacin then was switched to levaquin due to pruritis Family reports she was having low grade temp at home. UA at presentation does not appear infected. Urine culture on presentation polymicrobial and low count most consistent with skin indira. Blood culture from 02/01 neg to date Overnight with Fever to T 38 now with hypotension. Consistent with sepsis Overnight antibiotics broadened to Daptomycin and Ertapenem Getting 1L NSS bolus now with improved BP. Will continue NSS at 100 cc/hr Repeat UA here abnormal. Repeat urine culture is pending. Will also repeat blood culture (3) Encounter for pre-operative examination: (4) Abdominal distension: Plan: -History of GONZALEZ cirrhosis. -Family felt patient's abdomen and legs are more swollen--> bilateral lower extremity ultrasound negative for DVT, Abdominal ultrasound negative for ascites, Portal venous u/s negative for thrombus -Home torsemide, spironolactone held currently due to hypotension -continue rifaxamin, lactulose (5) Sepsis associated hypotension: Plan: See # 2 above (6) Anemia: Plan: -Worsening anemia in setting of acute blood loss related to surgery yesterday. Will repeat CBC again later today. May need transfusion if further H/H drop nalini with IVF Plan CAD with prior CABG Moderate -continue statin, aspirin Questionable reactive airway disease -continue inhaler/nebulizers (family states patient carries a diagnosis of "COPD" but never had formal testing) T2DM Gastroparesis Neuropathy -hold gabapentin due to delirium currently -hold trulicity -reduce lantus to: 10unit BID while she is NPO (home dose is 30 unit BID) -glycemic pharmacy management Anxiety Depression bipolar disorder -continue home medications Chronic back pain -continue MS contin 15mg QHS PRN and oxycodone 5mg Q 8 PRN Hypothyroidism -continue synthroid DVT ppx SCDs for now Dispo- Will need PT/OT evaluation for discharge planning Code status- full for now, discussed with daughters Admission and Anticipated Discharge Date Admission Date: February 01, 2023 Subjective Overnight had a fever to T 38 Blood pressure this morning down to 85/56 responded to NSS bolus Patient is confused and has a history of delirium Review of Systems Review of Systems: as above Physical Exam Physical Exam: Awake, asking for her handbook, asking when her leg will be cleaned up Disoriented but easily redirectable. Respiratory: Clear bilaterally, breathing comfortably, no accessory muscle use Cardiovascular: tachycardic but regular Gastrointestinal (Abdomen): soft, non tender Musculoskeletal: left leg in immobilizer, distal left foot with Charcot Rashmi tooth, no edema in bilateral lower extremities Neurologic: Awake, disoriented, spontaneously moving extremities Genitourinary: mejia catheter is draining dark urine Results & Data Results & Data Vital Signs (Past 12 Hours) Vital Signs Temp Pulse Pulse Pulse Resp BP Pulse Ox 02/03/23 09:19 36.7 C 103 H 20 96/51 L 91 02/03/23 07:58 37 C 111 H 20 86/61 L 91 02/03/23 07:38 85/56 L 02/03/23 07:30 37.7 C H 113 H 18 94 02/03/23 07:22 02/03/23 07:22 114 H 02/03/23 05:56 112 H 02/03/23 06:54 111 H 16 98 02/03/23 05:46 37.6 C H 02/03/23 04:41 38.0 C H 113 H 18 100/64 92 02/03/23 02:18 109 H 02/03/23 00:08 37.8 C H 106 H 18 118/86 90 02/02/23 22:24 O2 Del Method O2 Flow Rate 02/03/23 09:19 Room Air 02/03/23 07:58 Room Air 02/03/23 07:38 02/03/23 07:30 Nasal Cannula 1 02/03/23 07:22 Nasal Cannula 2 02/03/23 07:22 Nasal Cannula 2 02/03/23 05:56 02/03/23 06:54 Nasal Cannula 1 02/03/23 05:46 02/03/23 04:41 Nasal Cannula 1 02/03/23 02:18 02/03/23 00:08 Nasal Cannula 1 02/02/23 22:24 Nasal Cannula 2 (1) Femoral distal fracture Encounter type: initial encounter Fracture morphology: unspecified fracture morphology Fracture type: closed Laterality: left Qualified Code(s): S72.402A - Unspecified fracture of lower end of left femur, initial encounter for closed fracture (2) UTI (urinary tract infection) Hematuria presence: without hematuria Urinary tract infection type: site unspecified Qualified Code(s): N39.0 - Urinary tract infection, site not specified (6) Anemia Anemia type: unspecified type Qualified Code(s): D64.9 - Anemia, unspecified
[2023-02-03] MEDS ORDERED: HALOPERIDOL LACTATE 5 MG/ML 1 ML VIAL IM PRN (10:23)
--- NOTE | 2023-02-03 11:41 | Cardiology Progress Note ---
Date of Service February 03, 2023 Assessment & Plan (1) CAD (coronary artery disease), [place] coronary artery: (2) Chronic heart failure with preserved ejection fraction: (3) Edema leg: (4) Postoperative anemia: Plan 72-year-old female with complex cardiovascular history noted above. Orthopedic surgery performed yesterday 02/02/2023 without complication. Appears compensated from a cardiovascular perspective without anginal symptoms. Euvolemic on exam. Asymmetric left lower extremity edema noted. No evidence of DVT per venous duplex. Continue current cardiovascular medications aspirin, and beta-allie. Management of possible UTI and routine postoperative care as per internal medicine. Admission and Anticipated Discharge Date Admission Date: February 01, 2023 Subjective Patient seen examined the bedside. Pain well controlled. Denies chest pain or shortness of breath. Telemetry is a sinus rhythm with heart rate ranging from 100-110 bpm. No palpitations. Left hip pain well controlled. Somewhat confused this morning. Offers no concerns/complaints. Review of Systems Review of Systems: All systems reviewed & are unremarkable except as noted in Subjective Physical Exam Constitutional: well nourished; no acute distress Respiratory: no respiratory distress, no labored breathing and no retractions Auscultation: no crackles, no rales, no rhonchi and no wheezes Cardiovascular: Rate/Rhythm: regular rate and regular rhythm Heart Sounds: normal S1, normal S2 and + murmur (2/6 systolic ejection murmur heard at the base) Vessels: no JVD Extremities: + edema (1+ LLE edema) Gastrointestinal (Abdomen): Inspection/Auscultation: abdomen normal to inspection and normal bowel sounds; abdomen not distended Percussion/Palpation: abdomen soft; abdomen nontender, no guarding and abdomen not rigid Neurologic: CN's II-XI intact bilaterally and moves all extremities; no focal motor deficits Results & Data Vital Signs (Past 12 Hours) Vital Signs Temp Pulse Pulse Pulse Resp BP Pulse Ox 02/03/23 11:26 37.1 C 105 H 20 113/69 91 02/03/23 11:14 36.7 C 60 16 129/54 L 98 02/03/23 11:04 112 H 16 92 02/03/23 09:19 36.7 C 103 H 20 96/51 L 91 02/03/23 07:58 37 C 111 H 20 86/61 L 91 02/03/23 07:38 85/56 L 02/03/23 07:30 37.7 C H 113 H 18 94 02/03/23 07:22 02/03/23 07:22 114 H 02/03/23 05:56 112 H 02/03/23 06:54 111 H 16 98 02/03/23 05:46 37.6 C H 02/03/23 04:41 38.0 C H 113 H 18 100/64 92 02/03/23 02:18 109 H 02/03/23 00:08 37.8 C H 106 H 18 118/86 90 O2 Del Method O2 Flow Rate 02/03/23 11:26 Room Air 02/03/23 11:14 Room Air 02/03/23 11:04 Room Air 02/03/23 09:19 Room Air 02/03/23 07:58 Room Air 02/03/23 07:38 02/03/23 07:30 Nasal Cannula 1 02/03/23 07:22 Nasal Cannula 2 02/03/23 07:22 Nasal Cannula 2 02/03/23 05:56 02/03/23 06:54 Nasal Cannula 1 02/03/23 05:46 02/03/23 04:41 Nasal Cannula 1 02/03/23 02:18 02/03/23 00:08 Nasal Cannula 1
[2023-02-03] MEDS: clonazePAM 0.25 MG TAB PO SCH ×2 (13:27→21:46)
[2023-02-03] MEDS ORDERED: clonazePAM 0.5 MG TAB PO SCH (14:00)
[2023-02-03 14:27] LABS: Basophils # (auto) 0.05 K/uL (0-0.2); Basophils % (auto) 0.3 %; Eosinophils # (auto) 0.01 K/uL (0-0.50); Eosinophils % (auto) 0.1 %; Hemoglobin 7.6 g/dl (12.0-16.0); Immature Granulocytes % (auto) 2.5 %; Lymphocytes # (auto) 1.51 K/uL (1.2-3.4); Lymphocytes % (auto) 9.5 %; Mean Corpuscular Hemoglobin 25.8 pg (25.0-34.0); Monocytes # (auto) 1.49 K/uL (0.11-0.59); Monocytes % (auto) 9.3 %; Neutrophils # (auto) 12.49 K/uL (1.40-6.50); Neutrophils % (auto) 78.3 %; Platelet Count 136 K/uL (130-400); RDW Coefficient of Variation 17.2 % (11.5-14.5); RDW Standard Deviation 48.8 fL (36.4-46.3); Red Blood Count 2.95 M/uL (4.20-5.40); White Blood Count 15.95 K/ul (4.8-10.8)
[2023-02-03 14:34] LABS: BUN Creatinine Ratio 11.1 (10-20); Calcium 8.4 mg/dl (8.6-10.3); Creatinine Clr Calc Pharmacy 42.5 ml/min; Est GFR (African American) 38.7 ml/min; Est GFR (Non-African American) 33.4 ml/min; Potassium 3.4 mmol/L (3.5-5.1)
[2023-02-03 14:53] LABS: Polychromasia 1+
--- NOTE | 2023-02-03 15:10 | XRay Report ---
XR femur LT 2V routine CLINICAL HISTORY: POST OP COMPARISON: Left femur radiographs February 01, [address] of the left knee February 01, 2023. FINDINGS: Left hip arthroplasty is intact. Plate and screw fixation of the comminuted distal diaphys eal fracture of the left femur is noted. The hardware is intact. There are skin daniel. No unexpecte d radiopaque foreign bodies are present. Fracture alignment has improved since preoperative radiograp hs. IMPRESSION: Postoperative radiograph demonstrating internal fixation of the distal diaphyseal fractur e of the left femur with plate and screws. ACT 112: Negative or not required by law. Electronically signed by: Mu Bonds M.D. 02/03/2023 3:09 PM
--- NOTE | 2023-02-03 16:41 | Orthopedic Progress Note ---
Date of Service February 03, 2023 Assessment & Plan (1) Femoral distal fracture: Plan: postop day 1 status post left intramedullary nailing PT/OT protocols. Left nonweightbearing on lower extremity DVT prophylaxis-aspirin p.o. twice daily, SCDs pain management as written - hold narcotics if confusion persist Admission and Anticipated Discharge Date Admission Date: February 01, 2023 Subjective Postop day 1 Patient seen this morning sitting up in bed awake and alert. Nursing was present and states that she has been having some problem with confusion this morning. Patient is currently pleasant and answering some questions appropriately. She does not appear to be in distress. Physical Exam Physical Exam: Dressings are clean, dry, and intact. Thigh has some mild swelling consistent with surgery. Calves are soft and nontender. Has some difficulty moving her ankle secondary to Charcot joint. She also states that she has a history of neuropathy. Results & Data Vital Signs (Past 12 Hours) Vital Signs Temp Pulse Pulse Pulse Resp BP Pulse Ox 02/03/23 16:03 36.9 C 112 H 16 120/73 95 02/03/23 14:10 103 H 02/03/23 15:01 108 H 18 90 02/03/23 14:22 02/03/23 11:35 93 02/03/23 11:26 37.1 C 105 H 20 113/69 91 02/03/23 11:14 36.7 C 60 16 129/54 L 98 02/03/23 11:04 112 H 16 92 02/03/23 09:19 36.7 C 103 H 20 96/51 L 91 02/03/23 07:58 37 C 111 H 20 86/61 L 91 02/03/23 07:38 85/56 L 02/03/23 07:30 37.7 C H 113 H 18 94 02/03/23 07:22 02/03/23 07:22 114 H 02/03/23 05:56 112 H 02/03/23 06:54 111 H 16 98 02/03/23 05:46 37.6 C H 02/03/23 04:41 38.0 C H 113 H 18 100/64 92 Pulse Ox O2 Del Method O2 Flow Rate 02/03/23 16:03 Room Air 02/03/23 14:10 02/03/23 15:01 Room Air 02/03/23 14:22 93 02/03/23 11:35 02/03/23 11:26 Room Air 02/03/23 11:14 Room Air 02/03/23 11:04 Room Air 02/03/23 09:19 Room Air 02/03/23 07:58 Room Air 02/03/23 07:38 02/03/23 07:30 Nasal Cannula 1 02/03/23 07:22 Nasal Cannula 2 02/03/23 07:22 Nasal Cannula 2 02/03/23 05:56 02/03/23 06:54 Nasal Cannula 1 02/03/23 05:46 02/03/23 04:41 Nasal Cannula 1 Laboratory Results Laboratory Results WBC 15.95 K/ul (4.8-10.8) H 02/03/23 14:04 RBC 2.95 M/uL (4.20-5.40) L 02/03/23 14:04 Hgb 7.6 g/dl (12.0-16.0) L 02/03/23 14:04 Hct 23.0 % (37.0-47.0) L 02/03/23 14:04 MCV 78.0 fL (80.0-100.0) L 02/03/23 14:04 MCH 25.8 pg (25.0-34.0) 02/03/23 14:04 MCHC 33.0 g/dL (32.0-36.0) 02/03/23 14:04 RDW Std Deviation 48.8 fL (36.4-46.3) H 02/03/23 14:04 RDW Coeff of Guillermo 17.2 % (11.5-14.5) H 02/03/23 14:04 Plt Count 136 K/uL (130-400) 02/03/23 14:04 MPV 10.0 fL (9.4-12.4) 02/03/23 14:04 Immature Gran % (Auto) 2.5 % 02/03/23 14:04 Neut % (Auto) 78.3 % 02/03/23 14:04 Lymph % (Auto) 9.5 % 02/03/23 14:04 [place] % (Auto) 9.3 % 02/03/23 14:04 Eos % (Auto) 0.1 % 02/03/23 14:04 Baso % (Auto) 0.3 % 02/03/23 14:04 Neut # (Auto) 12.49 K/uL (1.40-6.50) H 02/03/23 14:04 Lymph # (Auto) 1.51 K/uL (1.2-3.4) 02/03/23 14:04 [place] # (Auto) 1.49 K/uL (0.11-0.59) H 02/03/23 14:04 Eos # (Auto) 0.01 K/uL (0-0.50) 02/03/23 14:04 Baso # (Auto) 0.05 K/uL (0-0.2) 02/03/23 14:04 Immature Gran # (Auto) 0.40 K/uL (0.01-0.20) H 02/03/23 14:04 Polychromasia 1+ 02/03/23 14:04 Sodium 129 mmol/L (136-145) L 02/03/23 14:04 Potassium 3.4 mmol/L (3.5-5.1) L 02/03/23 14:04 Chloride 100 mmol/L (98-107) 02/03/23 14:04 Carbon Dioxide 20 mmol/L (21-32) L 02/03/23 14:04 Anion Gap 9 (3-11) 02/03/23 14:04 BUN 17 mg/dl (6-23) 02/03/23 14:04 Creatinine 1.53 mg/dl (0.6-1.2) H 02/03/23 14:04 Est Cr Clr Drug Dosing 42.5 ml/min 02/03/23 14:04 Est GFR ( Amer) 38.7 ml/min 02/03/23 14:04 Est GFR (Non-Af Amer) 33.4 ml/min 02/03/23 14:04 BUN/Creatinine Ratio 11.1 (10-20) 02/03/23 14:04 Glucose 169 mg/dl (70-99(Fasting)) H 02/03/23 14:04 POC Glucose 185 mg/dl (70-99) H 02/03/23 12:31 Estimat Average Glucose 134 mg/dl 02/02/23 06:51 Hemoglobin A1c 6.3 % (4.5-5.6) H 02/02/23 06:51 Lactate 2.7 mmol/L (0.4-2.0) H* 02/03/23 08:05 Calcium 8.4 mg/dl (8.6-10.3) L 02/03/23 14:04 Magnesium 2.1 mg/dl (1.7-2.4) 02/03/23 07:56 Iron 17 mcg/dl (35-150) L 02/03/23 07:56 Unsaturated IBC 230 mcg/dl (155-355) 02/03/23 07:56 Ferritin 40.7 ng/ml (8-388) 02/03/23 07:56 Total Bilirubin 0.6 mg/dl (0.2-1.0) 02/03/23 07:56 AST 47 U/L (13-39) H 02/03/23 07:56 ALT 17 U/L (7-52) 02/03/23 07:56 Alkaline Phosphatase 107 U/L (34-104) H 02/03/23 07:56 Total Protein 5.6 gm/dl (6.0-8.3) L 02/03/23 07:56 Albumin 3.0 gm/dl (3.4-5.0) L 02/03/23 07:56 Globulin 2.6 gm/dl (2.5-4.0) 02/03/23 07:56 Albumin/Globulin Ratio 1.2 (0.9-2) 02/03/23 07:56 Lipase 34 U/L (11-82) 02/01/23 15:44 Vitamin B12 243 pg/ml (180-914) 02/03/23 07:38 25-OH Vitamin D Total 66.9 ng/ml (30-100) 02/03/23 07:38 Folate > 22.30 ng/ml (>5.38) 02/03/23 07:38 Urine Color Dark Yellow 02/03/23 05:21 Urine Appearance Turbid (Clear) A 02/03/23 05:21 Urine pH 5.5 (4.5-7.5) 02/03/23 05:21 Ur Specific [place] 1.026 (1.000-1.030) 02/03/23 05:21 Urine Protein 1+ (Negative) H 02/03/23 05:21 Urine Glucose (UA) Negative (Negative) 02/03/23 05:21 Urine Ketones Trace (Negative) H 02/03/23 05:21 Urine Blood 2+ (Negative) H 02/03/23 05:21 Urine Nitrite Negative (Negative) 02/03/23 05:21 Urine Bilirubin Negative (Negative) 02/03/23 05:21 Urine Urobilinogen Negative (Negative) 02/03/23 05:21 Ur Leukocyte Esterase 2+ (Negative) H 02/03/23 05:21 Urine WBC (Auto) >30 /hpf (0-5) H 02/03/23 05:21 Urine RBC (Auto) 5-10 /hpf (0-4) H 02/03/23 05:21 U Hyaline Cast (Auto) 1-5 /lpf (0-5) 02/03/23 05:21 U Epithel Cells (Auto) >30 /lpf (0-5) H 02/03/23 05:21 Urine Bacteria (Auto) Negative (Negative) 02/03/23 05:21 Urine Yeast Budding (None Prsent) A 02/03/23 05:21 SARS-CoV-2, RNA, NAAT NEGATIVE (NEGATIVE) 02/01/23 18:30 Blood Type O Negative 02/02/23 06:51 Antibody Screen POSITIVE A 02/02/23 06:51 Antibody Identification Anti-C Anti-D 02/02/23 06:51 Antibody Identification Anti-C Anti-D 02/02/23 06:51 Antibody ID Comment 02/02/23 06:51 Crossmatch See Detail 02/02/23 06:51 Impressions Chest X-Ray 02/01/23 16:23 SINGLE VIEW CHEST CLINICAL HISTORY: Fall. FINDINGS: 2 AP, portable, supine chest radiographs are compared to study dated 02/18/2022. The examination is degraded by portable technique, apical lordotic positioning, and patient rotation. The patient is status post midline sternotomy. The heart is top normal for projection noting atherosclerotic calcification of the thoracic aorta. The pulmonary vasculature is noncongested. Elevation of the right hemidiaphragm and chronic interstitial thickening is similar to previous. There is mild bibasilar atelectasis. The lungs and pleural spaces are otherwise clear. No pneumothorax is seen. The bony thorax is grossly intact. Arthritic change is noted in the shoulders. Cholecystectomy clips are noted in the right upper quadrant. IMPRESSION: No active disease in the chest. ACT 112: Negative or not required by law. Electronically signed by: Berto Snow M.D. 02/01/2023 5:24 PM Knee X-Ray 02/01/23 16:23 LEFT KNEE 2 VIEWS CLINICAL HISTORY: Fall. Left leg injury. FINDINGS: AP and crosstable lateral views of the left knee are compared to study dated 12/26/2022. The skeletal structures are osteopenic. There is a comminuted oblique fracture through the distal shaft of the left femur with displaced fragments. There is apex dorsal angulation at the fracture site, as well as mild overriding of fragments. There there is a surrounding soft tissue edema. No additional fracture is seen at the knee joint. There is moderate tricompartmental degenerative joint space narrowing. There are marginal osteophytes and patellar enthesophytes. There is a joint effusion with lipohemarthrosis. Chondrocalcinosis is seen in the left lateral compartment. IMPRESSION: 1. Comminuted fracture of the distal femoral shaft as above with associated lipohemarthrosis. 2. No additional fracture is seen at the knee joint. 3. Degenerative change and chondrocalcinosis as above. Electronically signed by: Berto Snow M.D. 02/01/2023 5:[address] 02/01/23 17:27 CT SCAN OF THE LEFT KNEE WITHOUT IV CONTRAST CLINICAL HISTORY: Fall. Femoral fracture. COMPARISON STUDY: Radiographs of the left knee dated 02/01/2023. TECHNIQUE: CT scan of the left knee is performed from the distal femur to the proximal tibia and fibula. Images are reviewed in the axial, sagittal, and coronal planes. IV contrast was not administered for this examination. A dose lowering technique was utilized adhering to the principles of ALARA. CT DOSE: 443.00 mGy.cm FINDINGS: The skeletal structures are osteopenic. There is a comminuted oblique fracture of the distal femoral metadiaphysis with large distracted fragments and surrounding hemorrhage. There is apex volar angulation at the fracture site with mild overriding of several fragments. Fracture does not extend to the distal articular surface of the femur. The patella, proximal tibia, and proximal fibula appear intact. There is a joint effusion of the knee with lipohemarthrosis. Degenerative change and chondrocalcinosis is seen in the knee. Marginal osteophytes are observed. There is marked atrophy of the regional musculature. There is trace intramuscular hemorrhage within the vastus lateralis. Atherosclerotic calcification is seen in the regional arteries. IMPRESSION: 1. Comminuted fracture of the distal femoral metadiaphysis as detailed above with trace surrounding hemorrhage and associated lipohemarthrosis. 2. No additional fracture is seen at the knee joint. 3. There is trace intramuscular hemorrhage within the vastus lateralis. 4. Additional findings as above. ACT 112: Negative or not required by law. Electronically signed by: Berto Snow M.D. 02/01/2023 6:43 PM Portal Vein US 02/02/23 00:00 US duplex portal hepatic veins CLINICAL HISTORY: Evaluate for portal venous thrombosis. COMPARISON STUDY: Abdomen and pelvis CT 12/29/2022. FINDINGS: The portal veins are patent and demonstrate normal direction of flow. The right hepatic vein is patent. The middle and left hepatic veins are not well visualized due to the patient's body habitus. IMPRESSION: No evidence for portal vein thrombosis. ACT 112: Negative or not required by law. Electronically signed by: Marquez Lindsay M.D. 02/02/2023 9:50 AM Renal Ultrasound 02/02/23 00:00 RENAL ULTRASOUND HISTORY: abdominal distension COMPARISON: Abdomen and pelvis CT 12/29/2022. FINDINGS: Right kidney: Most obscured by overlying bowel gas. Only the upper pole is clearly identified. No definite hydronephrosis. Normal corticomedullary differentiation and cortical thickness. Left kidney: 10 cm. No hydronephrosis. Normal corticomedullary differentiation and cortical thickness. Bladder: Decompressed by Gallagher catheter and therefore not well visualized IMPRESSION: No definite hydronephrosis. ACT 112: Negative or not required by law. Electronically signed by: Marquez Lindsay M.D. 02/02/2023 9:51 AM Venous Doppler Study 02/02/23 00:00 BILATERAL LOWER EXTREMITY VENOUS DOPPLER HISTORY: eval for DVT. leg swelling COMPARISON STUDY: None. FINDINGS: There is normal compressibility, flow, and augmentation within the visualized bilateral lower extremity deep venous systems. Of note, the calf vessels are not clearly identified due to the patient's body habitus. IMPRESSION: No DVT within the visualized right or left lower extremity. ACT 112: Negative or not required by law. Electronically signed by: Marquez Lindsay M.D. 02/02/2023 9:49 AM Abdomen Ultrasound 02/02/23 08:29 US abdomen ltd ascites CLINICAL HISTORY: Abdominal distention. Evaluate for ascites. COMPARISON STUDY: Abdomen and pelvis CT 12/29/2022. FINDINGS: Real-time sonographic imaging of the abdomen was performed with labor service representative images submitted. No ascites identified. IMPRESSION: No ascites. ACT 112: Negative or not required by law. Electronically signed by: Marquez Lindsay M.D. 02/02/2023 9:49 AM Femur X-Ray 02/03/23 00:00 XR femur LT 2V routine CLINICAL HISTORY: POST OP COMPARISON: Left femur radiographs February 01, [address] of the left knee February 01, 2023. FINDINGS: Left hip arthroplasty is intact. Plate and screw fixation of the comminuted distal diaphyseal fracture of the left femur is noted. The hardware is intact. There are skin daniel. No unexpected radiopaque foreign bodies are present. Fracture alignment has improved since preoperative radiographs. IMPRESSION: Postoperative radiograph demonstrating internal fixation of the distal diaphyseal fracture of the left femur with plate and screws. ACT 112: Negative or not required by law. Electronically signed by: Mu Bonds M.D. 02/03/2023 3:09 PM (1) Femoral distal fracture Encounter type: initial encounter Fracture morphology: unspecified fracture morphology Fracture type: closed Laterality: left Qualified Code(s): S72.402A - Unspecified fracture of lower end of left femur, initial encounter for closed fracture
[2023-02-03] MEDS ORDERED: POTASSIUM CHLORIDE CRTAB 20 MEQ TABCR PO STA ×2 (17:09→21:49)
[2023-02-03] MEDS: traZODone HCL 50 MG TAB PO SCH (21:47)
[2023-02-03] MEDS: DICYCLOMINE HCL 20 MG TAB PO PRN (21:48)
--- NOTE | 2023-02-03 21:50 | Communication Note ---
Date of Service: February 03, 2023 Recurrent fever, persistent lactic acidosis/tachycardia noted overnight. UA WBC esterase, budding yeast noted CT abdomen pelvis: 1. The unenhanced kidneys demonstrate no hydronephrosis or obvious obstructive nephrolithiasis. 2. No evidence for bowel obstruction. Evaluation of the bowel mucosa is limited without contrast and respiratory artifact. Prominent stool burden noted throughout the colon. This is of uncertain clinical significance and may represent normal variation or a component of constipation. No free intraperitoneal fluid or pneumoperitoneum. 3. The spleen is prominent in size, measuring 14 cm in length. No obvious focal splenic abnormality. AP Persistent sepsis secondary to complicated UTI (bacteriuria and funguria) Continue daptomycin Change Ertapenem to Meropenem for broader gram-negative bertin coverage and history of Pseudomonas UTI on review of outpatient urine CS Fluconazole for funguria May eventually need ID consultation once CS results finalized.
[2023-02-03] MEDS ORDERED: FLUCONAZOLE 100 MG/50 ML BAG IV STA (22:03)
[2023-02-03] MEDS: MEROPENEM 500 MG in SYRINGE 0 ML IV SCH (22:25)
--- NOTE | 2023-02-04 01:49 | CT Scan Report ---
Exam(s): CT ABDOMEN + PELVIS Without Contrast EXAM: CT Abdomen and Pelvis Without Intravenous Contrast CLINICAL HISTORY: renal failure, sepsis. TECHNIQUE: Axial computed tomography images of the abdomen and pelvis without intravenous contrast. Automated exposure control was utilized for the study. A dose lowering technique was utilized adhering to the principles of ALARA. COMPARISON: No relevant prior studies available. FINDINGS: Limitations: There is respiratory artifact, which degrades image quality on multiple image slices. Lung bases: Curvilinear subsegmental changes noted at the lung bases. ABDOMEN: Liver: Unremarkable. Gallbladder and bile ducts: Cholecystectomy. No ductal dilation. Pancreas: Unremarkable. No ductal dilation. Spleen: The spleen is prominent in size, measuring 14 cm in length. Adrenals: Unremarkable. No mass. Kidneys and ureters: The unenhanced kidneys are grossly unremarkable. No obstructive nephrolithiasis or hydronephrosis. Stomach and bowel: No evidence for bowel obstruction. Evaluation of the bowel mucosa is limited without contrast and respiratory artifact. Prominent stool burden noted throughout the colon. PELVIS: Appendix: The appendix is not clearly delineated. No secondary findings to suggest acute appendicitis. Bladder: See below. Reproductive: Unremarkable as visualized. ABDOMEN and PELVIS: Intraperitoneal space: Unremarkable. No free air. No significant fluid collection. Bones/joints: Multilevel degenerative changes throughout the included thoracolumbar spine. A left total hip arthroplasty is noted. Evaluation the bladder is limited by artifact from the hip arthroplasty. A Gallagher catheter is suggested in the bladder. Evaluation for bladder stones is limited. No acute fracture. No dislocation. Soft tissues: Unremarkable. Vasculature: Unremarkable. No abdominal aortic aneurysm. Lymph nodes: Unremarkable. No enlarged lymph nodes. IMPRESSION: 1. The unenhanced kidneys demonstrate no hydronephrosis or obvious obstructive nephrolithiasis. 2. No evidence for bowel obstruction. Evaluation of the bowel mucosa is limited without contrast and respiratory artifact. Prominent stool burden noted throughout the colon. This is of uncertain clinical significance and may represent normal variation or a component of constipation. No free intraperitoneal fluid or pneumoperitoneum. 3. The spleen is prominent in size, measuring 14 cm in length. No obvious focal splenic abnormality. Electronically signed by: Shailesh Arellano MD 02/04/23 01:48 AM
[2023-02-04] MEDS ORDERED: NSS + 20MEQ KCL 20 MEQ/1,000 ML BAG IV ONE (05:30)
[2023-02-04] MEDS: LEVOTHYROXINE SODIUM 88 MCG TABLET PO SCH (05:56)
[2023-02-04] MEDS: DAPTOmycin 500 MG in SYRINGE 0 ML IV SCH (05:56)
[2023-02-04] MEDS: ACETAMINOPHEN 500 MG TAB PO SCH ×3 (05:58→21:59)
[2023-02-04] MEDS: MEROPENEM 500 MG in SYRINGE 0 ML IV SCH ×3 (06:11→22:09)
[2023-02-04 06:43] LABS: Hematocrit (blood only) 20.1 % (37.0-47.0); Hemoglobin 6.6 g/dl (12.0-16.0); Mean Corpuscular Hemoglobin 25.2 pg (25.0-34.0); Mean Corpuscular Hgb Conc 32.8 g/dL (32.0-36.0); Mean Corpuscular Volume 76.7 fL (80.0-100.0); Mean Platelet Volume 10.2 fL (9.4-12.4); Platelet Count 115 K/uL (130-400); RDW Coefficient of Variation 17.5 % (11.5-14.5); RDW Standard Deviation 48.6 fL (36.4-46.3); Red Blood Count 2.62 M/uL (4.20-5.40); White Blood Count 12.67 K/ul (4.8-10.8)
[2023-02-04 06:52] LABS: Albumin Globulin Ratio 1.1 (0.9-2); Albumin Level 2.7 gm/dl (3.4-5.0); BUN Creatinine Ratio 14.4 (10-20); Bilirubin,Total 0.6 mg/dl (0.2-1.0); Calcium 8.1 mg/dl (8.6-10.3); Creatinine Clr Calc Pharmacy 49.1 ml/min; Est GFR (African American) 46.3 ml/min; Est GFR (Non-African American) 39.9 ml/min; Globulin 2.4 gm/dl (2.5-4.0); Magnesium 1.9 mg/dl (1.7-2.4); Potassium 4.1 mmol/L (3.5-5.1); Total Protein 5.1 gm/dl (6.0-8.3)
[2023-02-04] MEDS ORDERED: SODIUM CHLORIDE 0.9% 250 ML IV PRN ×2 (06:54→23:46)
[2023-02-04] MEDS ORDERED: MAGNESIUM SULFATE / D5W 1 GM/100 ML BAG IV ONE (06:55)
[2023-02-04 07:22] LABS: Basophils # (auto) 0.05 K/uL (0-0.2); Basophils % (auto) 0.4 %; Echinocytes 1+; Eosinophils # (auto) 0.06 K/uL (0-0.50); Eosinophils % (auto) 0.5 %; Immature Granulocytes # (auto) 0.25 K/uL (0.01-0.20); Lymphocytes # (auto) 1.26 K/uL (1.2-3.4); Lymphocytes % (auto) 9.9 %; Monocytes # (auto) 1.03 K/uL (0.11-0.59); Monocytes % (auto) 8.1 %; Neutrophils # (auto) 10.02 K/uL (1.40-6.50); Neutrophils % (auto) 79.1 %; Polychromasia 1+
--- NOTE | 2023-02-04 07:24 | XRay Report ---
XR chest 1V portable CLINICAL HISTORY: low o2 COMPARISON STUDY: Chest radiograph February 01, 2023. FINDINGS: Elevation of the right hemidiaphragm is unchanged. There are median sternotomy wires. Lungs are clear. There is no pneumothorax or pleural effusion. Cardiac size is normal. Mediastinal contour s are normal. There is no evidence for pulmonary edema. IMPRESSION: No acute cardiopulmonary findings. No change in appearance of the chest. ACT 112: Negative or not required by law. Electronically signed by: Mu Bonds M.D. 02/04/2023 7:22 AM
[2023-02-04] MEDS: ALBUT/IPRATROP 3MG/0.5MG NEB 3 ML VIAL INH SCH ×4 (07:30→19:48)
[2023-02-04] MEDS: SODIUM CHLORIDE 0.9% 1000ML 1,000 ML IV SCH (08:11)
[2023-02-04] MEDS: LACTULOSE SYRUP 10 GM/15 ML BTL 960 ML PO SCH (09:15)
[2023-02-04] MEDS: LANTUS PER UNIT CHARGE SC SCH ×2 (10:18→22:09)
[2023-02-04] MEDS: INSULIN ASPART PER UNIT CHARGE SC SCH ×4 (10:18→22:10)
[2023-02-04] MEDS: UMECLIDINIUM BROMIDE 62.5MCG/BLISTER 7 PUFFS/INHALER INH SCH (10:19)
[2023-02-04] MEDS: FLUTICASONE/VILANTEROL 100/25MCG 14 PUFFS/INHALER INH SCH (10:19)
[2023-02-04] MEDS: NYSTATIN POWDER 15GM BTL EXT SCH ×3 (10:20→22:02)
[2023-02-04] MEDS: FLUTICASONE PROPIONATE NA SPR 16 GM BTL SCH (10:20)
[2023-02-04] MEDS: ASPIRIN 81 MG ECTAB PO SCH ×2 (10:21→22:00)
[2023-02-04] MEDS: GABAPENTIN 300 MG CAP PO SCH ×2 (10:22→22:00)
[2023-02-04] MEDS: TAMSULOSIN HCL 0.4 MG CAP PO SCH (10:22)
[2023-02-04] MEDS: DICYCLOMINE HCL 20 MG TAB PO PRN ×2 (10:22→22:01)
[2023-02-04] MEDS: PANTOprazole 40 MG TAB PO SCH ×2 (10:23→21:59)
[2023-02-04] MEDS: rifAXIMin 550 MG TABLET PO SCH ×2 (10:25→21:59)
[2023-02-04] MEDS: clonazePAM 0.25 MG TAB PO SCH ×3 (10:29→22:00)
[2023-02-04] MEDS: oxyCODONE HCL IR 5 MG TAB (IMMEDIATE RELEASE) PO PRN (10:29)
[2023-02-04] MEDS: lamoTRIgine 25 MG TAB PO SCH ×2 (10:38→21:59)
[2023-02-04] MEDS: OXYBUTYNIN CHLORIDE XL 5 MG TABCR PO SCH (10:38)
[2023-02-04] MEDS: METOPROLOL SUCC 25MG EXT REL TAB PO SCH (10:38)
[2023-02-04] MEDS: lamoTRIgine 100 MG TAB PO SCH (10:38)
[2023-02-04] MEDS: CYANOCOBALAMIN (B-12) 100 MCG TABLET PO SCH (10:39)
[2023-02-04] MEDS: ARIPIprazole 1 MG/ML ORAL SOLN 150 ML BTL PO SCH (10:39)
[2023-02-04] MEDS: MONTELUKAST SODIUM 10 MG TABLET PO SCH (10:39)
[2023-02-04] MEDS: SUCRALFATE 1 GM TAB PO SCH (10:39)
[2023-02-04] MEDS: VENLAFAXINE HCL XR 75 MG CAPXR PO SCH (10:39)
[2023-02-04] MEDS: NYSTATIN SUSP 500,000 U/5 ML UDC PO SCH ×4 (10:40→22:01)
[2023-02-04] MEDS: VENLAFAXINE HCL XR 150 MG CAPXR PO SCH (10:40)
--- NOTE | 2023-02-04 11:02 | Orthopedic Progress Note ---
Date of Service February 04, 2023 Assessment & Plan (1) Femoral distal fracture: Plan: postop day 2 status post left intramedullary nailing PT/OT protocols. Left nonweightbearing on lower extremity DVT prophylaxis-aspirin p.o. twice daily, SCDs pain management as written - hold narcotics if confusion persist Admission and Anticipated Discharge Date Admission Date: February 01, 2023 Subjective postop day 2 patient sitting up in bed awake and alert. She seems to be mentating a little bit better today. Patient's hemoglobin has dropped down to 6.6 and she is being transfused units PRBCs. They are currently hanging the second unit. Patient has no overt complaints this morning at this time. Physical Exam Physical Exam: Silverlon dressings are intact. She has some scant drainage from the most proximal Silverlon dressing. We will have to consider changing the dressing if it continues. No obvious erythema. Swelling consistent from surgery. Calves are soft nontender. History of neuropathy of her feet and decreased range of motion of her left ankle secondary to Charcot joint per patient. Results & Data Vital Signs (Past 12 Hours) Vital Signs Temp Pulse Pulse Pulse Resp BP BP 02/04/23 10:51 37.4 C 111 H 18 92/50 L 02/04/23 10:35 36.8 C 110 H 18 120/65 02/04/23 10:34 36.8 C 110 H 18 120/65 02/04/23 10:17 36.7 C 112 H 18 111/62 02/04/23 08:50 36.5 C 117 H 18 139/60 02/04/23 08:05 36.9 C 116 H 18 99/55 L 02/04/23 08:00 36.8 C 116 H 18 100/52 L 02/04/23 07:45 36.7 C 118 H 18 139/57 L 02/04/23 07:59 36.8 C 116 H 18 100/52 L 02/04/23 07:43 36.7 C 118 H 18 139/57 L 02/04/23 07:30 104 H 18 02/04/23 04:33 36.7 C 108 H 18 100/53 L 02/03/23 23:44 119 H 02/03/23 23:15 37.2 C 117 H 18 144/70 H Pulse Ox O2 Del Method O2 Flow Rate 02/04/23 10:51 100 2 02/04/23 10:35 100 2 02/04/23 10:34 100 2 02/04/23 10:17 99 02/04/23 08:50 97 Room Air 02/04/23 08:05 95 Room Air 02/04/23 08:00 95 Room Air 02/04/23 07:45 95 Room Air 02/04/23 07:59 95 02/04/23 07:43 95 02/04/23 07:30 97 Nasal Cannula 4 02/04/23 04:33 98 Nasal Cannula 4 02/03/23 23:44 02/03/23 23:15 89 L Room Air Laboratory Results 02/04/23 02/04/23 02/04/23 Range/Units 07:40 06:20 06:11 WBC (4.8-10.8) K/ul RBC (4.20-5.40) M/uL Hgb (12.0-16.0) g/dl Hct (37.0-47.0) % MCV (80.0-100.0) fL MCH (25.0-34.0) pg MCHC (32.0-36.0) g/dL RDW Std Deviation (36.4-46.3) fL RDW Coeff of Guillermo (11.5-14.5) % Plt Count (130-400) K/uL MPV (9.4-12.4) fL Immature Gran % (Auto) % Neut % (Auto) % Lymph % (Auto) % Levy % (Auto) % Eos % (Auto) % Baso % (Auto) % Neut # (Auto) (1.40-6.50) K/uL Lymph # (Auto) (1.2-3.4) K/uL Levy # (Auto) (0.11-0.59) K/uL Eos # (Auto) (0-0.50) K/uL Baso # (Auto) (0-0.2) K/uL Immature Gran # (Auto) (0.01-0.20) K/uL Polychromasia Echinocytes Sodium 129 L (136-145) mmol/L Potassium 4.1 D (3.5-5.1) mmol/L Chloride 102 (98-107) mmol/L Carbon Dioxide 19 L (21-32) mmol/L Anion Gap 8 (3-11) BUN 19 (6-23) mg/dl Creatinine 1.32 H (0.6-1.2) mg/dl Est Cr Clr Drug Dosing 49.1 ml/min Est GFR ( Amer) 46.3 ml/min Est GFR (Non-Af Amer) 39.9 ml/min BUN/Creatinine Ratio 14.4 (10-20) Glucose 159 H (70-99(Fasting)) mg/dl POC Glucose 189 H (70-99) mg/dl Lactate 1.6 (0.4-2.0) mmol/L Calcium 8.1 L (8.6-10.3) mg/dl Magnesium 1.9 (1.7-2.4) mg/dl Total Bilirubin 0.6 (0.2-1.0) mg/dl AST 31 (13-39) U/L ALT 5 L (7-52) U/L Alkaline Phosphatase 102 (34-104) U/L Total Protein 5.1 L (6.0-8.3) gm/dl Albumin 2.7 L (3.4-5.0) gm/dl Globulin 2.4 L (2.5-4.0) gm/dl Albumin/Globulin Ratio 1.1 (0.9-2) Blood Type Antibody Screen Antibody Identification Antibody ID Comment Crossmatch 02/04/23 02/03/23 02/03/23 Range/Units 06:11 23:06 21:58 WBC 12.67 H (4.8-10.8) K/ul RBC 2.62 L (4.20-5.40) M/uL Hgb 6.6 L* (12.0-16.0) g/dl Hct 20.1 L* (37.0-47.0) % MCV 76.7 L (80.0-100.0) fL MCH 25.2 (25.0-34.0) pg MCHC 32.8 (32.0-36.0) g/dL RDW Std Deviation 48.6 H (36.4-46.3) fL RDW Coeff of Guillermo 17.5 H (11.5-14.5) % Plt Count 115 L (130-400) K/uL MPV 10.2 (9.4-12.4) fL Immature Gran % (Auto) 2.0 % Neut % (Auto) 79.1 % Lymph % (Auto) 9.9 % Levy % (Auto) 8.1 % Eos % (Auto) 0.5 % Baso % (Auto) 0.4 % Neut # (Auto) 10.02 H (1.40-6.50) K/uL Lymph # (Auto) 1.26 (1.2-3.4) K/uL Levy # (Auto) 1.03 H (0.11-0.59) K/uL Eos # (Auto) 0.06 (0-0.50) K/uL Baso # (Auto) 0.05 (0-0.2) K/uL Immature Gran # (Auto) 0.25 H (0.01-0.20) K/uL Polychromasia 1+ Echinocytes 1+ Sodium (136-145) mmol/L Potassium (3.5-5.1) mmol/L Chloride (98-107) mmol/L Carbon Dioxide (21-32) mmol/L Anion Gap (3-11) BUN (6-23) mg/dl Creatinine (0.6-1.2) mg/dl Est Cr Clr Drug Dosing ml/min Est GFR ( Amer) ml/min Est GFR (Non-Af Amer) ml/min BUN/Creatinine Ratio (10-20) Glucose (70-99(Fasting)) mg/dl POC Glucose 209 H (70-99) mg/dl Lactate 2.3 H* (0.4-2.0) mmol/L Calcium (8.6-10.3) mg/dl Magnesium (1.7-2.4) mg/dl Total Bilirubin (0.2-1.0) mg/dl AST (13-39) U/L ALT (7-52) U/L Alkaline Phosphatase (34-104) U/L Total Protein (6.0-8.3) gm/dl Albumin (3.4-5.0) gm/dl Globulin (2.5-4.0) gm/dl Albumin/Globulin Ratio (0.9-2) Blood Type Antibody Screen Antibody Identification Antibody ID Comment Crossmatch 02/03/23 02/03/23 02/03/23 Range/Units 20:29 19:40 16:48 WBC (4.8-10.8) K/ul RBC (4.20-5.40) M/uL Hgb (12.0-16.0) g/dl Hct (37.0-47.0) % MCV (80.0-100.0) fL MCH (25.0-34.0) pg MCHC (32.0-36.0) g/dL RDW Std Deviation (36.4-46.3) fL RDW Coeff of Guillermo (11.5-14.5) % Plt Count (130-400) K/uL MPV (9.4-12.4) fL Immature Gran % (Auto) % Neut % (Auto) % Lymph % (Auto) % Levy % (Auto) % Eos % (Auto) % Baso % (Auto) % Neut # (Auto) (1.40-6.50) K/uL Lymph # (Auto) (1.2-3.4) K/uL Levy # (Auto) (0.11-0.59) K/uL Eos # (Auto) (0-0.50) K/uL Baso # (Auto) (0-0.2) K/uL Immature Gran # (Auto) (0.01-0.20) K/uL Polychromasia Echinocytes Sodium (136-145) mmol/L Potassium (3.5-5.1) mmol/L Chloride (98-107) mmol/L Carbon Dioxide (21-32) mmol/L Anion Gap (3-11) BUN (6-23) mg/dl Creatinine (0.6-1.2) mg/dl Est Cr Clr Drug Dosing ml/min Est GFR ( Amer) ml/min Est GFR (Non-Af Amer) ml/min BUN/Creatinine Ratio (10-20) Glucose (70-99(Fasting)) mg/dl POC Glucose 196 H 165 H (70-99) mg/dl Lactate 2.3 H* (0.4-2.0) mmol/L Calcium (8.6-10.3) mg/dl Magnesium (1.7-2.4) mg/dl Total Bilirubin (0.2-1.0) mg/dl AST (13-39) U/L ALT (7-52) U/L Alkaline Phosphatase (34-104) U/L Total Protein (6.0-8.3) gm/dl Albumin (3.4-5.0) gm/dl Globulin (2.5-4.0) gm/dl Albumin/Globulin Ratio (0.9-2) Blood Type Antibody Screen Antibody Identification Antibody ID Comment Crossmatch 02/03/23 02/03/23 02/03/23 Range/Units 14:04 14:04 12:31 WBC 15.95 H (4.8-10.8) K/ul RBC 2.95 L (4.20-5.40) M/uL Hgb 7.6 L (12.0-16.0) g/dl Hct 23.0 L (37.0-47.0) % MCV 78.0 L (80.0-100.0) fL MCH 25.8 (25.0-34.0) pg MCHC 33.0 (32.0-36.0) g/dL RDW Std Deviation 48.8 H (36.4-46.3) fL RDW Coeff of Guillermo 17.2 H (11.5-14.5) % Plt Count 136 (130-400) K/uL MPV 10.0 (9.4-12.4) fL Immature Gran % (Auto) 2.5 % Neut % (Auto) 78.3 % Lymph % (Auto) 9.5 % Levy % (Auto) 9.3 % Eos % (Auto) 0.1 % Baso % (Auto) 0.3 % Neut # (Auto) 12.49 H (1.40-6.50) K/uL Lymph # (Auto) 1.51 (1.2-3.4) K/uL Levy # (Auto) 1.49 H (0.11-0.59) K/uL Eos # (Auto) 0.01 (0-0.50) K/uL Baso # (Auto) 0.05 (0-0.2) K/uL Immature Gran # (Auto) 0.40 H (0.01-0.20) K/uL Polychromasia 1+ Echinocytes Sodium 129 L (136-145) mmol/L Potassium 3.4 L (3.5-5.1) mmol/L Chloride 100 (98-107) mmol/L Carbon Dioxide 20 L (21-32) mmol/L Anion Gap 9 (3-11) BUN 17 (6-23) mg/dl Creatinine 1.53 H (0.6-1.2) mg/dl Est Cr Clr Drug Dosing 42.5 ml/min Est GFR ( Amer) 38.7 ml/min Est GFR (Non-Af Amer) 33.4 ml/min BUN/Creatinine Ratio 11.1 (10-20) Glucose 169 H (70-99(Fasting)) mg/dl POC Glucose 185 H (70-99) mg/dl Lactate (0.4-2.0) mmol/L Calcium 8.4 L (8.6-10.3) mg/dl Magnesium 2.0 (1.7-2.4) mg/dl Total Bilirubin (0.2-1.0) mg/dl AST (13-39) U/L ALT (7-52) U/L Alkaline Phosphatase (34-104) U/L Total Protein (6.0-8.3) gm/dl Albumin (3.4-5.0) gm/dl Globulin (2.5-4.0) gm/dl Albumin/Globulin Ratio (0.9-2) Blood Type Antibody Screen Antibody Identification Antibody ID Comment Crossmatch 02/02/23 Range/Units 06:51 WBC (4.8-10.8) K/ul RBC (4.20-5.40) M/uL Hgb (12.0-16.0) g/dl Hct (37.0-47.0) % MCV (80.0-100.0) fL MCH (25.0-34.0) pg MCHC (32.0-36.0) g/dL RDW Std Deviation (36.4-46.3) fL RDW Coeff of Guillermo (11.5-14.5) % Plt Count (130-400) K/uL MPV (9.4-12.4) fL Immature Gran % (Auto) % Neut % (Auto) % Lymph % (Auto) % Levy % (Auto) % Eos % (Auto) % Baso % (Auto) % Neut # (Auto) (1.40-6.50) K/uL Lymph # (Auto) (1.2-3.4) K/uL Levy # (Auto) (0.11-0.59) K/uL Eos # (Auto) (0-0.50) K/uL Baso # (Auto) (0-0.2) K/uL Immature Gran # (Auto) (0.01-0.20) K/uL Polychromasia Echinocytes Sodium (136-145) mmol/L Potassium (3.5-5.1) mmol/L Chloride (98-107) mmol/L Carbon Dioxide (21-32) mmol/L Anion Gap (3-11) BUN (6-23) mg/dl Creatinine (0.6-1.2) mg/dl Est Cr Clr Drug Dosing ml/min Est GFR ( Amer) ml/min Est GFR (Non-Af Amer) ml/min BUN/Creatinine Ratio (10-20) Glucose (70-99(Fasting)) mg/dl POC Glucose (70-99) mg/dl Lactate (0.4-2.0) mmol/L Calcium (8.6-10.3) mg/dl Magnesium (1.7-2.4) mg/dl Total Bilirubin (0.2-1.0) mg/dl AST (13-39) U/L ALT (7-52) U/L Alkaline Phosphatase (34-104) U/L Total Protein (6.0-8.3) gm/dl Albumin (3.4-5.0) gm/dl Globulin (2.5-4.0) gm/dl Albumin/Globulin Ratio (0.9-2) Blood Type O Negative Antibody Screen POSITIVE A Antibody Identification Anti-D Antibody ID Comment Crossmatch See Detail (1) Femoral distal fracture Encounter type: initial encounter Fracture morphology: unspecified fracture morphology Fracture type: closed Laterality: left Qualified Code(s): S72.402A - Unspecified fracture of lower end of left femur, initial encounter for closed fracture
--- NOTE | 2023-02-04 14:43 | Pharmacy Report ---
Pharmacy Glycemic Short Note 2 - Date of Service February 04, 2023 - Glycemic Short BSG Results (Last 24 hours): 02/03/23 02/03/23 02/03/23 16:48 20:29 21:58 Glucose POC Glucose 165 H 196 H 209 H 02/04/23 02/04/23 02/04/23 06:20 07:40 12:16 Glucose 159 H POC Glucose 189 H 239 H OUTPATIENT ANTIDIABETIC REGIMEN: * Lantus 30 units SC BID * Trulicity 4.5 mg SC weekly (Friday) * Metformin 500 mg PO daily w/ dinner * HbA1c: 6.3% (02/02/23) ASSESSMENT: 02/04: * 77 UNITS of SQ insulin given over the last 24 hours, 40 units of basal, 37 units of correctional/prandial * Diet has been advanced to T2DM * Patient had a late breakfast and elevated BSG at lunch, will not make adjustments based on this, but may need tightened if continues to be elevated throughout the day * Basal mildly elevated- will increase basal today * 02/03 * 80 units SQ insulin given over the last 24 hrs while mostly NPO * Fasting BSG 176 this AM with 30 units basal on board and after receiving 28 units correctional insulin overnight. Will titrate up basal insulin * Post-prandial BSG elevated following dinner yesterday, however this may have been due to basal deficiency. Correctional and prandial doses were increased as a result yesterday - will continue for now and following BSG trends today 02/02 * CD is a 72 year old female who presented to ED on 02/01 w/ left hip pain s/p fall * POD #0 s/p ORIF of left femur * BSG this morning of 238 mg/dL - will get conservative basal dose on board prior to surgery * BSG postoperatively is 224 mg/dL - patient previously did well on Lantus 15 units SC BID per admission in 2021. Will use this dosing for now w/ weight/based stress of 2.5 Novolog * Clear liquid diet ordered postoperatively PLAN FOR INPATIENT GLYCEMIC CONTROL: * Hold outpatient diabetes medications (metformin, dulaglutide) * Basal insulin * Lantus 25 units SC BID * Bolus insulin * NovoLog per scale ACHS or Q6hrs while NPO * Goal Range: Low 110 mg/dL - High 140 mg/dL * Correction Factor: 15 mg/dL/unit * Nutritional / Prandial insulin per carb ratio of 1 unit per 5 grams CHO consumed
--- NOTE | 2023-02-04 15:18 | Cardiology Progress Note ---
Date of Service February 04, 2023 Assessment & Plan (1) CAD (coronary artery disease), in[place] coronary artery: (2) Chronic heart failure with preserved ejection fraction: (3) Edema leg: (4) Acute blood loss anemia: Plan Patient is status post left femur open reduction internal fixation for a fracture of the distal femur on 02/02/2023. She has had intermittent fever has been treated for Pseudomonas UTI. Diarrhea also noted and she is being evaluated for C. difficile. Hemoglobin has trended down from 12.2 on admission to 6.[address] of the abdomen pelvis did not suggest retroperitoneal hemorrhage. Continue metoprolol succinate 25 mg daily, Protonix. Aspirin, torsemide, spironolactone on hold. Admission and Anticipated Discharge Date Admission Date: February 01, 2023 Subjective Patient seen in cardiology follow-up. No acute complaints. She was receiving a transfusion of packed red blood cells at the time of my assessment. Telemetry revealed sinus tachycardia with a rate of 100 to 115 bpm, and several very brief episodes of supraventricular tachycardia at 150 bpm. Physical Exam Physical Exam: Temp Pulse Resp BP Pulse Ox O2 Del Method O2 Flow Rate 36.8 C 105 H 20 120/76 97 Room Air 2 02/04/23 13:13 02/04/23 13:13 02/04/23 13:13 02/04/23 13:13 02/04/23 13:13 02/04/23 12:35 02/04/23 11:36 Constitutional: well nourished; no acute distress Respiratory: no respiratory distress, no labored breathing and no retractions Auscultation: no crackles, no rales, no rhonchi and no wheezes Cardiovascular: Rate/Rhythm: regular rate and regular rhythm Heart Sounds: normal S1, normal S2 and + murmur (2/6 systolic ejection murmur heard at the base) Vessels: no JVD Extremities: + edema (1+ LLE edema) Gastrointestinal (Abdomen): Inspection/Auscultation: abdomen normal to inspection and normal bowel sounds; abdomen not distended Percussion/Palpation: abdomen soft; abdomen nontender, no guarding and abdomen not rigid Neurologic: CN's II-XI intact bilaterally and moves all extremities; no focal motor deficits Results & Data Laboratory Results Cardiac Enzymes 02/04/23 Range/Units 06:20 AST 31 (13-39) U/L CBC 02/04/23 Range/Units 06:11 WBC 12.67 H (4.8-10.8) K/ul RBC 2.62 L (4.20-5.40) M/uL Hgb 6.6 L* (12.0-16.0) g/dl Hct 20.1 L* (37.0-47.0) % Plt Count 115 L (130-400) K/uL Neut # (Auto) 10.02 H (1.40-6.50) K/uL Lymph # (Auto) 1.26 (1.2-3.4) K/uL Jewell # (Auto) 1.03 H (0.11-0.59) K/uL Eos # (Auto) 0.06 (0-0.50) K/uL Baso # (Auto) 0.05 (0-0.2) K/uL Comprehensive Metabolic Panel 02/04/23 Range/Units 06:20 Sodium 129 L (136-145) mmol/L Potassium 4.1 D (3.5-5.1) mmol/L Chloride 102 (98-107) mmol/L Carbon Dioxide 19 L (21-32) mmol/L BUN 19 (6-23) mg/dl Creatinine 1.32 H (0.6-1.2) mg/dl Glucose 159 H (70-99(Fasting)) mg/dl Calcium 8.1 L (8.6-10.3) mg/dl AST 31 (13-39) U/L ALT 5 L (7-52) U/L Alkaline Phosphatase 102 (34-104) U/L Total Protein 5.1 L (6.0-8.3) gm/dl Albumin 2.7 L (3.4-5.0) gm/dl
--- NOTE | 2023-02-04 19:23 | Hospitalist Progress Note ---
Date of Service February 04, 2023 Assessment & Plan (1) Femoral distal fracture: Plan: Appreciate Cardiology input for optimization and risk stratifcation Patient went to OR 02/02 for ORIF Will monitor on telemetry, previously patient went into A fib post operatively and also had hospital delirium (2) UTI (urinary tract infection): Plan: Was previously on ciprofloxacin then was switched to levaquin due to pruritis. Levaquin was continued here yesterday morning she was hypotensive and recieved 1L NSS bolus then continue IVF Lactate also elevated Antibiotics broadened to Ertapenem and Daptomycin No clear source of infection currently. ID was consulted and input appreicate--recommends discontinue of fluconazole. If blood and urine culture remains negative by tomorrow--> recommend discontinue Ertapenem and Daptomycin. Recommend GI consult for workup of microcytic anemia which may possibly be cause of her fever. (3) Encounter for pre-operative examination: (4) Abdominal distension: Plan: -History of GONZALEZ cirrhosis. -Family felt patient's abdomen and legs are more swollen--> bilateral lower extremity ultrasound negative for DVT, Abdominal ultrasound negative for ascites, Portal venous u/s negative for thrombus -Home torsemide, spironolactone held currently due to hypotension- will resume -continue rifaxamin -Lactulose held today due to multiple diarrhea. C diff ordered (5) Sepsis associated hypotension: Plan: See # 2 above (6) Anemia: Plan: -Worsening anemia in setting of acute blood loss related to surgery yesterday. -Received 2 unit pRBC. Repeat CBC now -Iron deficiency, will need supplement started at discharge -GI consult for anemia workkup Plan CAD with prior CABG Moderate -continue statin, aspirin Questionable reactive airway disease -continue inhaler/nebulizers (family states patient carries a diagnosis of "COPD" but never had formal testing) T2DM Gastroparesis Neuropathy -hold gabapentin due to delirium yesterday -hold trulicity -glycemic pharmacy management Anxiety Depression bipolar disorder -continue home medications Chronic back pain -continue MS contin 15mg QHS PRN and oxycodone 5mg Q 8 PRN Hypothyroidism -continue synthroid DVT ppx SCDs for now Dispo- Will need PT/OT evaluation for discharge planning Code status- full for now, discussed with daughters Admission and Anticipated Discharge Date Admission Date: February 01, 2023 Subjective Loose watery stools (patient is on lactulose which was held today) BP remains stable Afebrile Less confused Patient feels well overall today Received 2 unit pRBC today, repeat H/H pending Review of Systems Review of Systems: as above Physical Exam Physical Exam: No acute distress, non toxic, morbidly obese Respiratory: Breathing comfortably on room air, no wheezing/rhonchi/rales Cardiovascular: Regular rate and rhythm, no murmurs/rubs/gallops Gastrointestinal (Abdomen): soft, non tender Musculoskeletal: Left leg with some swelling Neurologic: awake, alert, answers questions appropriately Results & Data Results & Data Vital Signs (Past 12 Hours) Vital Signs Temp Pulse Pulse Pulse Resp BP BP 02/04/23 16:00 97 H 02/04/23 08:00 112 H 02/04/23 16:01 93 H 14 02/04/23 15:49 36.7 C 99 H 18 109/64 02/04/23 10:00 02/04/23 13:13 36.8 C 105 H 20 120/76 02/04/23 12:35 37.0 C 105 H 18 114/75 02/04/23 11:36 36.2 C L 114 H 18 132/74 02/04/23 11:05 37.5 C 116 H 18 96/46 L 02/04/23 10:50 37.4 C 111 H 18 92/50 L 02/04/23 10:35 36.8 C 110 H 18 129/65 02/04/23 10:15 36.7 C 112 H 18 111/62 02/04/23 11:00 36.8 C 02/04/23 10:59 108 H 18 02/04/23 10:51 37.4 C 111 H 18 92/50 L 02/04/23 10:35 36.8 C 110 H 18 120/65 02/04/23 10:34 36.8 C 110 H 18 120/65 02/04/23 10:17 36.7 C 112 H 18 111/62 02/04/23 08:50 36.5 C 117 H 18 139/60 02/04/23 08:05 36.9 C 116 H 18 99/55 L 02/04/23 08:00 36.8 C 116 H 18 100/52 L 02/04/23 07:45 36.7 C 118 H 18 139/57 L 02/04/23 07:59 36.8 C 116 H 18 100/52 L 02/04/23 07:43 36.7 C 118 H 18 139/57 L 02/04/23 07:30 104 H 18 Pulse Ox O2 Del Method O2 Flow Rate FiO2 02/04/23 16:00 02/04/23 08:00 02/04/23 16:01 100 Room Air 21 02/04/23 15:49 93 Room Air 02/04/23 10:00 Nasal Cannula 2 02/04/23 13:13 97 02/04/23 12:35 94 Room Air 02/04/23 11:36 98 Nasal Cannula 2 02/04/23 11:05 99 Nasal Cannula 2 02/04/23 10:50 100 Nasal Cannula 2 02/04/23 10:35 100 Nasal Cannula 02/04/23 10:15 99 Nasal Cannula 2 02/04/23 11:00 02/04/23 10:59 97 Nasal Cannula 2 02/04/23 10:51 100 2 02/04/23 10:35 100 2 02/04/23 10:34 100 2 02/04/23 10:17 99 02/04/23 08:50 97 Room Air 02/04/23 08:05 95 Room Air 02/04/23 08:00 95 Room Air 02/04/23 07:45 95 Room Air 02/04/23 07:59 95 02/04/23 07:43 95 02/04/23 07:30 97 Nasal Cannula 4 (1) Femoral distal fracture Encounter type: initial encounter Fracture morphology: unspecified fracture morphology Fracture type: closed Laterality: left Qualified Code(s): S72.402A - Unspecified fracture of lower end of left femur, initial encounter for closed fracture (2) UTI (urinary tract infection) Hematuria presence: without hematuria Urinary tract infection type: site unspecified Qualified Code(s): N39.0 - Urinary tract infection, site not specified (6) Anemia Anemia type: unspecified type Qualified Code(s): D64.9 - Anemia, unspecified
[2023-02-04 20:11] LABS: Hematocrit (blood only) 20.9 % (37.0-47.0); Hemoglobin 7.1 g/dl (12.0-16.0); Mean Corpuscular Hemoglobin 26.7 pg (25.0-34.0); Mean Corpuscular Volume 78.6 fL (80.0-100.0); Mean Platelet Volume 9.9 fL (9.4-12.4); Nucleated RBC # (auto) 0.03 K/uL (0-0.12); Nucleated RBC % (auto) 0.3 %; Platelet Count 109 K/uL (130-400); RDW Coefficient of Variation 17.2 % (11.5-14.5); Red Blood Count 2.66 M/uL (4.20-5.40); White Blood Count 11.15 K/ul (4.8-10.8)
[2023-02-04] MEDS ORDERED: FLUCONAZOLE 100 MG TAB PO SCH (21:00)
[2023-02-04] MEDS: traZODone HCL 50 MG TAB PO SCH (22:01)
[2023-02-04] MEDS: SPIRONOLACTONE 25 MG TAB PO SCH (22:02)
[2023-02-05] MEDS: ACETAMINOPHEN 500 MG TAB PO SCH ×3 (05:05→21:51)
[2023-02-05] MEDS: LEVOTHYROXINE SODIUM 88 MCG TABLET PO SCH (05:05)
[2023-02-05] MEDS: DAPTOmycin 500 MG in SYRINGE 0 ML IV SCH (05:08)
[2023-02-05] MEDS: MEROPENEM 500 MG in SYRINGE 0 ML IV SCH (05:08)
[2023-02-05] MEDS: ALBUT/IPRATROP 3MG/0.5MG NEB 3 ML VIAL INH SCH ×2 (07:02→19:38)
[2023-02-05 07:14] LABS: Basophils # (auto) 0.04 K/uL (0-0.2); Basophils % (auto) 0.4 %; Eosinophils # (auto) 0.18 K/uL (0-0.50); Eosinophils % (auto) 1.8 %; Hematocrit (blood only) 24.5 % (37.0-47.0); Hemoglobin 8.2 g/dl (12.0-16.0); Lymphocytes # (auto) 1.09 K/uL (1.2-3.4); Mean Corpuscular Hemoglobin 26.5 pg (25.0-34.0); Mean Corpuscular Hgb Conc 33.5 g/dL (32.0-36.0); Mean Corpuscular Volume 79.3 fL (80.0-100.0); Mean Platelet Volume 9.5 fL (9.4-12.4); Monocytes # (auto) 0.75 K/uL (0.11-0.59); Monocytes % (auto) 7.6 %; Neutrophils # (auto) 7.51 K/uL (1.40-6.50); Neutrophils % (auto) 76.2 %; Nucleated RBC # (auto) 0.02 K/uL (0-0.12); Nucleated RBC % (auto) 0.2 %; Platelet Count 103 K/uL (130-400); RDW Coefficient of Variation 17.7 % (11.5-14.5); RDW Standard Deviation 50.7 fL (36.4-46.3); Red Blood Count 3.09 M/uL (4.20-5.40); White Blood Count 9.87 K/ul (4.8-10.8)
[2023-02-05 07:30] LABS: Albumin Globulin Ratio 1.1 (0.9-2); Albumin Level 2.7 gm/dl (3.4-5.0); BUN Creatinine Ratio 16.3 (10-20); Bilirubin,Total 1.5 mg/dl (0.2-1.0); Calcium 8.1 mg/dl (8.6-10.3); Creatinine Clr Calc Pharmacy 70.5 ml/min; Est GFR (African American) 71.6 ml/min; Est GFR (Non-African American) 61.8 ml/min; Globulin 2.4 gm/dl (2.5-4.0); Potassium 4.2 mmol/L (3.5-5.1); Total Protein 5.1 gm/dl (6.0-8.3)
--- NOTE | 2023-02-05 07:57 | Gastrointestinal Consultation ---
Date of Consultation February 05, 2023 Assessment & Plan (1) Cirrhosis of liver not due to alcohol: (2) Acute blood loss anemia: Plan Her Hb baseline is approx 8-9, so the Hb of 12 on arrival likely secondary to poor hydration vs being a true baseline. Because no gross GI bleeding and EGD was completed in October 2022 w/o abnormalities, would defer EGD. Will plan for OP colonoscopy. BID po PPI. No GI contraindication to advancing diet. Will check ammonia level (? limited insight due to mild hepatic encephalopathy vs baseline function/bipolar etc). Please consider restarting the lactulose BID that she is on at home. History of Present Illness Reason for Consultation: Worsening Anemia Requesting Physician: Dr. Dumont Attending Physician: David Chery MD History of Present Illness Ms. Ballard is a 72 yr old female pt of Dr. Domínguez w a hx of DM2, obeisty, hypothyroidism, bipolar disease, GONZALEZ cirrhosis, GERD. She underwent nailing for left distal femur fracture on 02/02. Though she hasn't had any gross GI bleeding, Hb was 12 on arrival and decreased to 6.6 post operatively. She received 3 units of RBCs yesterday/early this morning and today, Hb is 8.2. She denies any abd pain, N/V blood in BMs. Most recent EGD was completed in October 2022 for heartburn: normal though there was some retained food in the stomach. Most recent Colonoscopy was in 2013 w/o any polyps or other abnormalities. Allergies Allergy/AdvReac Type Severity Reaction Status Date / Time propoxyphene Allergy Intermediate Rash Verified 02/01/23 16:28 fentanyl AdvReac Intermediate PANIC Verified 02/01/23 16:28 WANTS TO RUN AND AGGRESSIVE methocarbamol AdvReac Intermediate DELERIUM Verified 02/01/23 16:28 zolpidem AdvReac Intermediate confusion Verified 02/01/23 16:28 Home Medications Medication Instructions Recorded Confirmed Type acetaminophen 325 mg tablet 650 mg PO Q4 PRN Pain (Scale Score 02/19/22 02/01/23 History (Tylenol) 1-3) albuterol sulfate 90 mcg/actuation 2 puff inhalation QID PRN Wheezing 02/19/22 02/01/23 History aerosol inhaler aripiprazole 2 mg tablet 2 mg PO QAM 02/19/22 02/01/23 History ascorbic acid (vitamin C) 500 mg 500 mg PO BID 02/19/22 02/01/23 History tablet (Vitamin C) aspirin 81 mg tablet,delayed 81 mg PO QAM 02/19/22 02/01/23 History release atorvastatin 40 mg tablet 40 mg PO QAM 02/19/22 02/01/23 History clonazepam 0.5 mg tablet 0.5 mg PO TID 02/19/22 02/01/23 History dicyclomine 20 mg tablet 10 mg PO QID PRN ABD PAIN 02/19/22 02/01/23 History dulaglutide 4.5 mg/0.5 mL 4.5 mg subcut WK 02/19/22 02/01/23 History subcutaneous pen injector (Trulicity) ergocalciferol (vitamin D2) 1,250 1,250 mcg PO WK 02/19/22 02/01/23 History mcg (50,000 unit) capsule (Vitamin D2) estradiol 0.01% (0.1 mg/gram) 1 g vaginal HS 02/19/22 02/01/23 History vaginal cream (Estrace) gabapentin 300 mg capsule 300 mg PO BID 02/19/22 02/01/23 History lamotrigine 100 mg tablet 100 mg PO QAM 02/19/22 02/01/23 History (Lamictal) lamotrigine 25 mg tablet (Lamictal) See Rx Instructions .Route .COMPLEX 02/19/22 02/01/23 History levothyroxine 88 mcg tablet 88 mcg PO QAM 02/19/22 02/01/23 History metoprolol succinate 25 mg 25 mg PO QAM 02/19/22 02/01/23 History tablet,extended release 24 hr montelukast 10 mg tablet 10 mg PO QAM 02/19/22 02/01/23 History oxycodone 5 mg tablet 5 mg PO Q8 PRN Pain 02/19/22 02/01/23 History pantoprazole 40 mg tablet,delayed 40 mg PO BID 02/19/22 02/01/23 History release rifaximin 550 mg tablet (Xifaxan) 550 mg PO BID 02/19/22 02/01/23 History tamsulosin 0.4 mg capsule 0.4 mg PO QAM 02/19/22 02/01/23 History venlafaxine 75 mg capsule,extended 75 mg PO QAM 02/19/22 02/01/23 History release 24 hr (Effexor XR) insulin glargine 100 unit/mL (3 30 unit subcut BID 04/09/22 02/01/23 History mL) subcutaneous pen (Basaglar KwikPen U-100 Insulin) budesonide-formoterol HFA 160 2 inh inhalation BID 05/24/22 02/01/23 History mcg-4.5 mcg/actuation aerosol inhaler (Symbicort) lactulose 10 gram/15 mL oral 45 g PO BID 05/24/22 02/01/23 History solution torsemide 20 mg tablet 20 mg PO QAM 05/24/22 02/01/23 History trazodone 50 mg tablet 50 mg PO HS 05/24/22 02/01/23 History famotidine 40 mg tablet 40 mg PO DAILY 12/26/22 02/01/23 History fluticasone propionate 50 2 spray intranasal DAILY PRN 12/26/22 02/01/23 History mcg/actuation nasal Congestion spray,suspension ipratropium 0.5 mg-albuterol 3 mg 3 ml inhalation QID 12/26/22 02/01/23 History (2.5 mg base)/3 mL nebulization soln metformin 500 mg tablet,extended 500 mg PO QDD 12/26/22 02/01/23 History release 24 hr methenamine hippurate 1 gram tablet 1 g PO BID 12/26/22 02/01/23 History morphine 15 mg tablet,extended 15 mg PO HS PRN Severe Pain (Scale 12/26/22 02/01/23 History release Score 7-10) nitroglycerin 0.4 mg sublingual 0.4 mg sublingual DIRECTED PRN 12/26/22 02/01/23 History tablet (Nitrostat) Chest Pain ondansetron HCl 8 mg tablet 8 mg PO Q8H PRN NAUSEA/VOMITING 12/26/22 02/01/23 History potassium chloride 20 mEq 20 meq PO DAILY 12/26/22 02/01/23 History tablet,extended release(part/cryst) (Klor-Con M) spironolactone 50 mg tablet 50 mg PO BID 12/26/22 02/01/23 History sucralfate 1 gram tablet 1 g PO QAM 12/26/22 02/01/23 History tiotropium bromide 2.5 2 inh inhalation QAM 12/26/22 02/01/23 History mcg/actuation mist for inhalation (Spiriva Respimat) venlafaxine 150 mg 150 mg PO QAM 12/26/22 02/01/23 History capsule,extended release 24 hr diclofenac sodium 1 % topical gel 2 g topical BID PRN Pain 02/01/23 02/01/23 History levofloxacin 500 mg tablet 500 mg PO QAM 02/01/23 02/01/23 History nystatin 100,000 unit/gram topical 1 applic topical TID 02/01/23 02/01/23 History powder (Nyamyc) nystatin 100,000 unit/mL oral 5 ml mucous membrane QID 02/01/23 02/01/23 History suspension oxybutynin chloride 10 mg 10 mg PO QAM 02/01/23 02/01/23 History tablet,extended release 24 hr Patient History Medical History Anxiety Bipolar disorder CAD (coronary artery disease) History of multiple PCI's to the RCA with subsequent CABG x1 in 2010 x 1 vessel Most recent cardiac testing-negative DSE in December 2017 Follows w/ Dr. Blackwell and Dr. Lucas Cardiac arrest pt states she was told she went into cardiac arrest during her hip surgery in 02/2022 at [facility] and was "revived". no other details were given. Jsvejbu-Rziyv-Qzyun disease follows w/ Dr. Lemus LEG WEAKNESS CURRENT PT/OT FOR - BRACES B/L LEGS Chronic diastolic CHF (congestive heart failure) Chronic low back pain Chronic pain syndrome Cough started about 8 months ago s/p covid-19 virus -- currently treating with augmentin PO bid and prednisone. prednisone to end 05/27/22 and abx to finish on 06/01/22 Depression DM type 2 (diabetes mellitus, type 2) IDDM Dyslipidemia Encephalopathy d/c from [facility] 09/20/19 (hepatic encephalopathy) Gastroparesis GERD (gastroesophageal reflux disease) History of anesthesia reaction REMOTE HX, SIDE EFFECTS : ANXIETY AND SEVERE N/V History of COVID-19 may or june 2021, has cough since. Hx of fall pt. fell in the bathroom at home, pt. wasn't aware of what happen but was told this by her family 02/05/2022 Hypertension Hypothyroidism Irregular heart beat follows Dr. 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 Portal hypertensive gastropathy SOB (shortness of breath) SINCE COVID 19/ 6-8 MON AGO, SOB, COUGH...NO DX...HAS VISIT WITH PULM UPCOMING TO EVALUATE Spondylosis Urinary incontinence UTI (urinary tract infection) FREQUENT/PREVENTATIVE ABX'S CURRENTLY MOST RECENT UTI JANUARY 04 - ABX COMPLETE - ON CURRENT PROPHYLACTIC TX Surgical History History of appendectomy History of back surgery sacral area History of cardiac cath multiple - most recent - 2 years ago @ [facility] History of cataract surgery RT History of colonoscopy History of esophagogastroduodenoscopy (EGD) History of heart artery stent 2 yrs ago @ [facility] > 6 or 7 stents > follows Dr. Lucas History of left hip replacement 02/05/2022 History of total right knee replacement Hx of cholecystectomy S/P CABG x 1 2010 - single vessel S/P CARLOS (total abdominal hysterectomy) Family History Father Coronary heart disease Brother Coronary heart disease Father No problems noted. Mother No problems noted. Other No family history of adverse response to anesthesia Social History Smoking Status: Never smoker Tobacco Type: Cigarettes Second Hand Exposure: Yes; Do You Dip or Chew Tobacco: No; Hx Alcohol Use: No Hx Substance Use: No Preferred Language: Spanish Communication Ability: Effective Bench Mover Required: No Beliefs That Will Affect Care: None marital status: / Current Living Situation: Alone How many Children do You have: 0 Other Information That Helps Us Care for You: No Feels Safe at Home: Yes Safety Concerns: Feels Safe At This Time Assistive Devices: Bedside Commode, Brace/Splint/Immobilizer, Lift Chair, Walker and Wheelchair Assistive Devices Comment: Reading glasses Review of Systems 2 Review of Systems: ROS: No Gen: Denies weakness, fevers, weight loss Eyes: No eye redness, or pain, no recent vision changes Resp: No SOB, no cough Cardio: No palpitations/irregular beats, no chest pain GI: No abdominal pain, no nausea/vomiting : Denies pain on urination Skin: No jaundice, itching or new rashes M/S: left leg pain secondary to fx and surgery Physical Exam Constitutional: WD/WN, vitals as above Eyes: PERRL, conjunctivae normal, anicteric sclerae ENMT: external ear and nose normal, oropharynx normal Neck: trachea midline, no thyromegaly Respiratory: normal respiratory effort, lungs clear to auscultation Cardiovascular: Rate/Rhythm: regular rate and regular rhythm 1+ right foot edema; 2+ left foot edema Gastrointestinal (Abdomen): normal bowel sounds, soft, nontender, no hepatosplenomegaly Neurologic: CN's II-XI intact bilaterally and awake Speech / Cognition: + abnormal cognition (replies w simple; basic answers; doesn't seem to understand the point) Oriented to person/place/time but seems to have limited insight. Lymphatic: no cervical or axillary lymphadenopathy Results & Data Vital Signs (Past 12 Hours) Vital Signs Temp Pulse Pulse Pulse Resp BP BP 02/05/23 07:02 93 H 16 02/05/23 05:12 36.7 C 93 H 14 120/66 02/05/23 05:00 37 C 93 H 14 114/63 02/05/23 04:00 37 C 91 H 14 133/76 02/05/23 03:00 36.7 C 91 H 14 126/72 02/05/23 02:45 36.8 C 96 H 14 145/73 H 02/05/23 02:30 37.1 C 95 H 14 120/76 02/05/23 02:15 37 C 90 14 131/75 02/05/23 02:10 37 C 83 14 123/67 02/05/23 02:05 37 C 93 H 14 123/71 02/05/23 01:57 37.1 C 92 H 14 02/05/23 00:07 36.9 C 91 H 18 115/52 L 02/04/23 23:00 96 H 02/04/23 20:02 Pulse Ox O2 Del Method 02/05/23 07:02 94 Room Air 02/05/23 05:12 94 02/05/23 05:00 94 02/05/23 04:00 95 02/05/23 03:00 95 02/05/23 02:45 02/05/23 02:30 95 02/05/23 02:15 02/05/23 02:10 94 02/05/23 02:05 93 02/05/23 01:57 94 02/05/23 00:07 94 Room Air 02/04/23 23:00 02/04/23 20:02 94 Room Air Laboratory Results WBC 9.8, Hb 8.2, HCT 24.5, PLT 103, NA 127, K4.2, CL 101, CO2 22, BUN 15, CR 0.92, glucose 138 Diagnostic Findings T. bili 1.5, AST 26, ALT 25, alk phos 98
[2023-02-05] MEDS: INSULIN ASPART PER UNIT CHARGE SC SCH ×4 (08:55→21:49)
[2023-02-05] MEDS: LANTUS PER UNIT CHARGE SC SCH (09:10)
[2023-02-05] MEDS: ASPIRIN 81 MG ECTAB PO SCH ×2 (09:42→21:48)
[2023-02-05] MEDS: ARIPIprazole 1 MG/ML ORAL SOLN 150 ML BTL PO SCH (09:42)
[2023-02-05] MEDS: CYANOCOBALAMIN (B-12) 100 MCG TABLET PO SCH (09:44)
[2023-02-05] MEDS: FLUTICASONE PROPIONATE NA SPR 16 GM BTL SCH (09:45)
[2023-02-05] MEDS: FLUTICASONE/VILANTEROL 100/25MCG 14 PUFFS/INHALER INH SCH (09:46)
[2023-02-05] MEDS: GABAPENTIN 300 MG CAP PO SCH ×2 (09:47→21:48)
[2023-02-05] MEDS: lamoTRIgine 100 MG TAB PO SCH (09:48)
[2023-02-05] MEDS: lamoTRIgine 25 MG TAB PO SCH ×2 (09:49→21:49)
[2023-02-05] MEDS: METOPROLOL SUCC 25MG EXT REL TAB PO SCH (09:50)
[2023-02-05] MEDS: MONTELUKAST SODIUM 10 MG TABLET PO SCH (09:50)
[2023-02-05] MEDS: NYSTATIN SUSP 500,000 U/5 ML UDC PO SCH ×4 (09:51→21:50)
[2023-02-05] MEDS: NYSTATIN POWDER 15GM BTL EXT SCH ×3 (09:51→21:50)
[2023-02-05] MEDS: OXYBUTYNIN CHLORIDE XL 5 MG TABCR PO SCH (09:52)
[2023-02-05] MEDS: PANTOprazole 40 MG TAB PO SCH ×2 (09:53→21:50)
[2023-02-05] MEDS: SPIRONOLACTONE 25 MG TAB PO SCH (09:54)
[2023-02-05] MEDS: rifAXIMin 550 MG TABLET PO SCH ×2 (09:54→21:51)
[2023-02-05] MEDS: SUCRALFATE 1 GM TAB PO SCH (09:55)
[2023-02-05] MEDS: VENLAFAXINE HCL XR 150 MG CAPXR PO SCH (09:56)
[2023-02-05] MEDS: UMECLIDINIUM BROMIDE 62.5MCG/BLISTER 7 PUFFS/INHALER INH SCH (09:56)
[2023-02-05] MEDS: TAMSULOSIN HCL 0.4 MG CAP PO SCH (09:56)
[2023-02-05] MEDS: VENLAFAXINE HCL XR 75 MG CAPXR PO SCH (09:57)
[2023-02-05] MEDS: clonazePAM 0.25 MG TAB PO SCH ×3 (10:32→21:48)
--- NOTE | 2023-02-05 12:54 | Pharmacy Report ---
Pharmacy Glycemic Short Note 2 - Date of Service February 05, 2023 - Glycemic Short BSG Results (Last 24 hours): 02/04/23 02/04/23 02/05/23 17:05 20:00 06:46 Glucose 129 H POC Glucose 160 H 197 H 02/05/23 02/05/23 07:48 12:05 Glucose POC Glucose 138 H 137 H OUTPATIENT ANTIDIABETIC REGIMEN: * Lantus 30 units SC BID * Trulicity 4.5 mg SC weekly (Friday) * Metformin 500 mg PO daily w/ dinner * HbA1c: 6.3% (02/02/23) ASSESSMENT: 02/05: * BSGs yesterday ranging 160-239 mg/dL w/ fasting BSG this morning of 138 mg/dL * Received 74 units of insulin (50 units of basal and 24 units of bolus) * Historically, patient has required less insulin - mild concern that we may begin to see correction * Will allow for reduced basal insulin with scale this evening 02/04: * 77 UNITS of SQ insulin given over the last 24 hours, 40 units of basal, 37 units of correctional/prandial * Diet has been advanced to T2DM * Patient had a late breakfast and elevated BSG at lunch, will not make adjustments based on this, but may need tightened if continues to be elevated throughout the day * Basal mildly elevated- will increase basal today * 02/03 * 80 units SQ insulin given over the last 24 hrs while mostly NPO * Fasting BSG 176 this AM with 30 units basal on board and after receiving 28 units correctional insulin overnight. Will titrate up basal insulin * Post-prandial BSG elevated following dinner yesterday, however this may have been due to basal deficiency. Correctional and prandial doses were increased as a result yesterday - will continue for now and following BSG trends today 02/02 * CD is a 72 year old female who presented to ED on 02/01 w/ left hip pain s/p fall * POD #0 s/p ORIF of left femur * BSG this morning of 238 mg/dL - will get conservative basal dose on board prior to surgery * BSG postoperatively is 224 mg/dL - patient previously did well on Lantus 15 units SC BID per admission in 2021. Will use this dosing for now w/ weight/based stress of 2.5 Novolog * Clear liquid diet ordered postoperatively PLAN FOR INPATIENT GLYCEMIC CONTROL: * Hold outpatient diabetes medications (metformin, dulaglutide) * Basal insulin * Lantus 25 units SC this AM * Lantus 5-25 units SC HS * Reassess in AM * Bolus insulin * NovoLog per scale ACHS or Q6hrs while NPO * Goal Range: Low 110 mg/dL - High 140 mg/dL * Correction Factor: 15 mg/dL/unit * Nutritional / Prandial insulin per carb ratio of 1 unit per 5 grams CHO consumed
--- NOTE | 2023-02-05 14:53 | Cardiology Progress Note ---
Date of Service February 05, 2023 Assessment & Plan (1) CAD (coronary artery disease), [place] coronary artery: (2) Chronic heart failure with preserved ejection fraction: (3) Edema leg: (4) Acute blood loss anemia: Plan Patient is status post left femur open reduction internal fixation for a fracture of the distal femur on 02/02/2023. She has had intermittent fever has been treated for Pseudomonas UTI. Diarrhea also noted and she is being evaluated for C. difficile. Hemoglobin has trended down from 12.2 on admission to 6.6 on 02/04/2023, and improved to 8.2 having received 3 units of packed red blood cells. Torsemide has been on hold. Given hyponatremia with sodium down to 127, oral spironolactone also. With regards to confusion, agree with GI plan to recheck ammonia level. Lactulose has been reinitiated. Continue metoprolol succinate 25 mg daily, Protonix. Given amount of volume administered for blood transfusion, and worsening hyponatremia, proceed with dose of furosemide 20 mg IV x1 now. Patient with Gallagher catheter in place. Admission and Anticipated Discharge Date Admission Date: February 01, 2023 Subjective Patient confused today.Daughter is at bedside. Telemetry reveals sinus rhythm in the 80s. Physical Exam Physical Exam: Temp Pulse Resp BP Pulse Ox O2 Del Method O2 Flow Rate 36.8 C 105 H 20 120/76 97 Room Air 2 02/04/23 13:13 02/04/23 13:13 02/04/23 13:13 02/04/23 13:13 02/04/23 13:13 02/04/23 12:35 02/04/23 11:36 Constitutional: well nourished; no acute distress Respiratory: no respiratory distress, no labored breathing and no retractions Auscultation: no crackles, no rales, no rhonchi and no wheezes Cardiovascular: Rate/Rhythm: regular rate and regular rhythm Heart Sounds: normal S1, normal S2 and + murmur (2/6 systolic ejection murmur heard at the base) Vessels: no JVD Extremities: + edema (1+ LLE edema) Gastrointestinal (Abdomen): Inspection/Auscultation: abdomen normal to inspection and normal bowel sounds; abdomen not distended Percussion/Palpation: abdomen soft; abdomen nontender, no guarding and abdomen not rigid Neurologic: CN's II-XI intact bilaterally and moves all extremities; no focal motor deficits Results & Data Vital Signs (Past 12 Hours) Vital Signs Temp Pulse Pulse Pulse Resp BP BP 02/05/23 08:37 36.8 C 95 H 24 142/77 H 02/05/23 07:02 93 H 16 02/05/23 05:12 36.7 C 93 H 14 120/66 02/05/23 05:00 37 C 93 H 14 114/63 02/05/23 04:00 37 C 91 H 14 133/76 02/05/23 03:00 36.7 C 91 H 14 126/72 Pulse Ox O2 Del Method 02/05/23 08:37 93 Room Air 02/05/23 07:02 94 Room Air 02/05/23 05:12 94 02/05/23 05:00 94 02/05/23 04:00 95 02/05/23 03:00 95
[2023-02-05] MEDS: FUROSEMIDE INJ 20 MG/2 ML VIAL IV ONE ×3 (15:50→16:25)
--- NOTE | 2023-02-05 16:41 | Hospitalist Progress Note ---
Date of Service February 05, 2023 Assessment & Plan (1) Femoral distal fracture: Plan: Status post fall with left femoral fracture Appreciate Cardiology input for optimization and risk stratifcation Appreciate Ortho input and recommendation Status post left femur open reduction and internal fixation on 02/02/2023 Pain is controlled at rest We will continue with PT and OT evaluation (2) UTI (urinary tract infection): Plan: Was previously on ciprofloxacin then was switched to levaquin due to pruritis. Levaquin was continued on admission Developed fever of 38 C early in the morning on 03 February following surgery and lactate was elevated at the time with low blood pressure She received 1 L normal saline bolus and also antibiotic were changed to intravenous ertapenem and daptomycin Later on ID was consulted who recommended antibiotics to be discontinued Antibiotics and antifungal were discontinued as of today 8 Discussed with the daughters . (3) Encounter for pre-operative examination: (4) Abdominal distension: Plan: -History of GONZALEZ cirrhosis. -Family felt patient's abdomen and legs are more swollen--> bilateral lower extremity ultrasound negative for DVT, Abdominal ultrasound negative for ascites, Portal venous u/s negative for thrombus -Home torsemide, spironolactone held currently due to hypotension- will resume -continue rifaxamin -Lactulose held today due to multiple diarrhea. C diff ordered -Lactulose has been restarted from today as stool is forming -C. difficile has not been collected yet (5) Sepsis associated hypotension: Plan: Sepsis has been ruled out Likely source following the procedure with hypotension Condition resolved (6) Anemia: Plan: -Worsening anemia in setting of acute blood loss related to surgery yesterday. -Received 2 unit pRBC. Repeat CBC now -Iron deficiency, will need supplement started at discharge -GI consult for anemia workkup -Appreciate GI input and recommendation Plan Other significant medical conditions are as below: CAD with prior CABG Moderate -continue statin, aspirin Questionable reactive airway disease -continue inhaler/nebulizers (family states patient carries a diagnosis of "COPD" but never had formal testing) T2DM Gastroparesis Neuropathy -hold gabapentin due to delirium yesterday -hold trulicity -glycemic pharmacy management Anxiety Depression bipolar disorder -continue home medications Chronic back pain -continue MS contin 15mg QHS PRN and oxycodone 5mg Q 8 PRN Hypothyroidism -continue synthroid DVT ppx SCDs for now Dispo- Will need PT/OT evaluation for discharge planning Code status- full for now, discussed with daughters Admission and Anticipated Discharge Date Admission Date: February 01, 2023 Subjective 02/05/2023 The patient was seen and examined in medical telemetry unit She has been stable and remains pleasantly confused Denies any significant symptoms Stool seems to be forming urine initiate lactulose Review of Systems Review of Systems: All systems reviewed and are unremarkable except as noted below Physical Exam Constitutional: well developed, + ill appearing and + morbidly obese Eyes: PERRL, conjunctivae normal, anicteric sclerae ENMT: external ear and nose normal, oropharynx normal Neck: trachea midline, no thyromegaly Respiratory: no respiratory distress Auscultation: + diminished lung sounds and + crackles (Minimal crackles at the bases) Cardiovascular: Rate/Rhythm: regular rate and regular rhythm; not tachycardic Heart Sounds: normal S1 and normal S2; no murmur Extremities: + edema (Trace edema bilaterally) Gastrointestinal (Abdomen): Inspection/Auscultation: + abdomen distended and normal bowel sounds Percussion/Palpation: abdomen soft; abdomen nontender Musculoskeletal: No acute arthritis involving any joint Neurologic: Alert and awake. Pleasantly confused. Generally weak Lymphatic: no cervical or axillary lymphadenopathy Results & Data Results & Data Vital Signs (Past 12 Hours) Vital Signs Temp Pulse Pulse Pulse Resp BP BP 02/05/23 14:49 88 02/05/23 08:00 92 H 02/05/23 14:00 36.7 C 63 16 02/05/23 15:18 36.8 C 95 H 20 134/80 02/05/23 08:37 36.8 C 95 H 24 142/77 H 02/05/23 07:02 93 H 16 02/05/23 05:12 36.7 C 93 H 14 120/66 02/05/23 05:00 37 C 93 H 14 114/63 BP Pulse Ox O2 Del Method O2 Flow Rate 02/05/23 14:49 02/05/23 08:00 02/05/23 14:00 173/65 H 98 Oxymask 2 02/05/23 15:18 91 Room Air 02/05/23 08:37 93 Room Air 02/05/23 07:02 94 Room Air 02/05/23 05:12 94 02/05/23 05:00 94 Laboratory Results Short CBC 02/04/23 02/05/23 Range/Units 19:31 06:46 WBC 11.15 H 9.87 (4.8-10.8) K/ul Hgb 7.1 L 8.2 L (12.0-16.0) g/dl Hct 20.9 L* 24.5 L (37.0-47.0) % Plt Count 109 L 103 L (130-400) K/uL BMP 02/05/23 06:46 Sodium 127 L Potassium 4.2 Chloride 101 Carbon Dioxide 22 BUN 15 Creatinine 0.92 D Glucose 129 H Calcium 8.1 L Liver Function 02/05/23 Range/Units 06:46 Total Bilirubin 1.5 H D (0.2-1.0) mg/dl AST 26 (13-39) U/L ALT 5 L (7-52) U/L Alkaline Phosphatase 98 (34-104) U/L Albumin 2.7 L (3.4-5.0) gm/dl Medications Administered Current Inpatient Medications Acetaminophen (Acetaminophen 500 Mg Tab) 1,000 mg PO Q8 [facility] Stop: 03/05/23 04:59 Last Admin: 02/05/23 14:45 Dose: 1,000 mg Albuterol (Albuterol Hfa 8 Gm Inhaler) 2 puffs INH QID PRN PRN Reason: Wheezing Stop: 03/03/23 21:28 Albuterol (Albut/Ipratrop 3mg/0.5mg Neb 3 Ml Vial) 3 ml INH BIDR [facility]; Protocol Stop: 03/07/23 18:59 Aripiprazole (Aripiprazole 1 Mg/Ml Oral Soln 150 Ml Btl) [facility] [place] Stop: 03/04/23 08:59 Last Admin: 02/05/23 09:42 Dose: 2 mg Aspirin (Aspirin 81 Mg Ectab) 81 mg PO QAM [facility] Stop: 03/04/23 08:59 Last Admin: 02/02/23 07:43 Dose: 81 mg Aspirin (Aspirin 81 Mg Ectab) 81 mg PO BID [facility] Stop: 03/04/23 20:59 Last Admin: 02/05/23 09:42 Dose: 81 mg Atorvastatin Calcium (Atorvastatin 40 Mg Tab) [facility] [place] Stop: 03/04/23 08:59 Last Admin: 02/02/23 07:37 Dose: 40 mg Clonazepam (Clonazepam 0.25 Mg Tab) 0.25 mg PO TID [facility] Stop: 03/05/23 13:59 Last Admin: 02/05/23 14:45 Dose: 0.25 mg Cyanocobalamin (Cyanocobalamin (B-12) 100 Mcg Tablet) 100 mcg PO QAM [facility] Stop: 03/06/23 08:59 Last Admin: 02/05/23 09:44 Dose: 100 mcg Dextrose (Dextrose 50% 50 Ml Syringe) 25 - 50 ml IV UD PRN; Protocol PRN Reason: Hypoglycemia Protocol Stop: 03/03/23 19:11 Dicyclomine HCl (Dicyclomine Hcl 20 Mg Tab) 10 mg PO QID PRN PRN Reason: ABD PAIN Stop: 03/03/23 21:28 Last Admin: 02/04/23 22:01 Dose: 10 mg Ergocalciferol (Ergocalciferol 50,000 Units 1250 Mcg Cap) 50,000 units PO Th [facility] Stop: 03/08/23 08:59 Fluticasone Propionate (Fluticasone Propionate Na Spr 16 Gm Btl) 2 sprays NA DAILY [facility] Stop: 03/04/23 08:59 Last Admin: 02/05/23 09:45 Dose: 2 sprays Fluticasone/Vilanterol (Fluticasone/Vilanterol 100/25mcg 14 Puffs/Inhaler) 1 puffs INH DAILY [facility] Stop: 03/04/23 08:59 Last Admin: 02/05/23 09:46 Dose: 1 puffs Gabapentin (Gabapentin 300 Mg Cap) 300 mg PO BID [facility] Stop: 03/03/23 21:28 Last Admin: 02/05/23 09:47 Dose: 300 mg Glucagon (Glucagon For Inj 1 Mg Vial) 1 mg SQ UD PRN; Protocol PRN Reason: Hypoglycemia Protocol Stop: 03/03/23 19:11 Glucose (Glucose 40% Gel 15 Gm Tube) 15 - 30 gm PO UD PRN; Protocol PRN Reason: Hypoglycemia Protocol Stop: 03/03/23 19:11 Glucose (Glucose 10 Tab/Tube) 4 - 8 tab PO UD PRN; Protocol PRN Reason: Hypoglycemia Treatment Stop: 03/03/23 19:11 Haloperidol Lactate (Haloperidol Lactate 5 Mg/Ml 1 Ml Vial) 2.5 mg IM Q8H PRN PRN Reason: agitation Stop: 03/05/23 10:22 Insulin Aspart (Insulin Aspart Per Unit Charge) 0 units SC ACHS [facility] Stop: 03/03/23 21:44 Last Admin: 02/05/23 13:03 Dose: 4 units Insulin Glargine (Lantus Per Unit Charge) 0 units SC BID [facility]; Protocol Stop: 02/05/23 21:01 Lactulose (Lactulose Syrup 10 Gm/15 Ml Btl 960 Ml) 45 gm PO BID [facility] Stop: 03/03/23 21:59 Last Admin: 02/04/23 09:15 Dose: Not Given Lamotrigine (Lamotrigine 25 Mg Tab) 25 mg PO QAM [facility] Stop: 03/04/23 08:59 Last Admin: 02/05/23 09:49 Dose: 25 mg Lamotrigine (Lamotrigine 100 Mg Tab) 100 mg PO QAM [facility] Stop: 03/04/23 08:59 Last Admin: 02/05/23 09:48 Dose: 100 mg Lamotrigine (Lamotrigine 25 Mg Tab) 50 mg PO PM [facility] Stop: 03/03/23 21:59 Last Admin: 02/04/23 21:59 Dose: 50 mg Levothyroxine Sodium (Levothyroxine Sodium 88 Mcg Tablet) 88 mcg PO DAILYBB [facility] Stop: 03/04/23 06:29 Last Admin: 02/05/23 05:05 Dose: Not Given Methenamine Hippurate (Methenamine Hippurate 1 Gm Tab) 1 gm PO BID [facility] Stop: 02/11/23 21:28 Last Admin: 02/02/23 20:57 Dose: 1 gm Metoclopramide HCl (Metoclopramide Hcl Inj 5 Mg/Ml 2 Ml Vial) 10 mg IV Q6H PRN PRN Reason: Nausea Stop: 03/03/23 18:28 Metoprolol Succinate (Metoprolol Succ 25mg Ext Rel Tab) 25 [facility] [place] Stop: 03/04/23 08:59 Last Admin: 02/05/23 09:50 Dose: 25 mg Miscellaneous (Carbohydrates For Hypoglycemia ) 15 - 30 gm PO UD PRN PRN Reason: Hypoglycemia Protocol Stop: 03/03/23 19:11 Miscellaneous Information (Pharmacy Glycemic Mgmt Consult) 1 each N/A UD PRN; Protocol PRN Reason: Consult Stop: 03/03/23 19:09 Montelukast Sodium (Montelukast Sodium 10 Mg Tablet) 10 mg PO QAM [facility] Stop: 03/04/23 08:59 Last Admin: 02/05/23 09:50 Dose: 10 mg Morphine Sulfate (Morphine Sulfate Cr 15 Mg Tabcr) 15 mg PO HS PRN PRN Reason: Severe Pain (Scale Score 7-10) Stop: 02/15/23 21:28 Nystatin (Nystatin Susp 500,000 U/5 Ml Udc) 5 ml PO QID [facility] Stop: 02/11/23 21:28 Last Admin: 02/05/23 14:45 Dose: 5 ml Nystatin (Nystatin Powder 15gm Btl) 1 appln EXT TID [facility] Stop: 03/03/23 21:28 Last Admin: 02/05/23 14:46 Dose: 1 appln Oxybutynin Chloride (Oxybutynin Chloride Xl 5 Mg Tabcr) 10 mg PO QAM [facility] Stop: 03/04/23 08:59 Last Admin: 02/05/23 09:52 Dose: 10 mg Oxycodone HCl (Oxycodone Hcl Ir 5 Mg Tab (Immediate Release)) 5 mg PO Q4H PRN PRN Reason: Pain Stop: 02/17/23 10:25 Last Admin: 02/04/23 10:29 Dose: 5 mg Pantoprazole Sodium (Pantoprazole 40 Mg Tab) 40 mg PO BID [facility] Stop: 03/03/23 21:28 Last Admin: 02/05/23 09:53 Dose: 40 mg Rifaximin (Rifaximin 550 Mg Tablet) 550 mg PO BID [facility] Stop: 03/03/23 21:28 Last Admin: 02/05/23 09:54 Dose: 550 mg Spironolactone (Spironolactone 25 Mg Tab) 50 mg PO BID [facility] Stop: 03/03/23 21:28 Last Admin: 02/05/23 09:54 Dose: 50 mg Sucralfate (Sucralfate 1 Gm Tab) 1 [facility] [place] Stop: 03/04/23 08:59 Last Admin: 02/05/23 09:55 Dose: 1 gm Tamsulosin HCl (Tamsulosin Hcl 0.4 Mg Cap) 0.4 mg [facility] [place] Stop: 03/04/23 08:59 Last Admin: 02/05/23 09:56 Dose: 0.4 mg Torsemide (Torsemide 10 Mg Tab) 20 mg PO QAM [facility] Stop: 03/04/23 08:59 Last Admin: 02/03/23 09:16 Dose: Not Given Trazodone HCl (Trazodone Hcl 50 Mg Tab) 50 mg PO HS [facility] Stop: 03/03/23 21:28 Last Admin: 02/04/23 22:01 Dose: 50 mg Umeclidinium Snowflake (Umeclidinium Snowflake 62.5mcg/Blister 7 Puffs/Inhaler) 1 puffs INH QAM [facility] Stop: 03/04/23 08:59 Last Admin: 02/05/23 09:56 Dose: 1 puffs Venlafaxine HCl (Venlafaxine Hcl Xr 150 Mg Capxr) 150 mg PO QAM [facility] Stop: 03/04/23 08:59 Last Admin: 02/05/23 09:56 Dose: 150 mg Venlafaxine HCl (Venlafaxine Hcl Xr 75 Mg Capxr) 75 mg PO QAM [facility] Stop: 03/04/23 08:59 Last Admin: 02/05/23 09:57 Dose: 75 mg (1) Femoral distal fracture Encounter type: initial encounter Fracture morphology: unspecified fracture morphology Fracture type: closed Laterality: left Qualified Code(s): S72.402A - Unspecified fracture of lower end of left femur, initial encounter for closed fracture (2) UTI (urinary tract infection) Hematuria presence: without hematuria Urinary tract infection type: site unspecified Qualified Code(s): N39.0 - Urinary tract infection, site not specified (6) Anemia Anemia type: unspecified type Qualified Code(s): D64.9 - Anemia, unspecified
[2023-02-05] MEDS ORDERED: LANTUS PER UNIT CHARGE SC SCH (21:00)
[2023-02-05] MEDS: LACTULOSE SYRUP 10 GM/15 ML BTL 960 ML PO SCH (21:49)
[2023-02-05] MEDS: traZODone HCL 50 MG TAB PO SCH (21:51)
[2023-02-06] MEDS: LEVOTHYROXINE SODIUM 88 MCG TABLET PO SCH (05:45)
[2023-02-06] MEDS: ACETAMINOPHEN 500 MG TAB PO SCH ×2 (05:45→13:26)
[2023-02-06 06:46] LABS: Basophils # (auto) 0.03 K/uL (0-0.2); Basophils % (auto) 0.4 %; Eosinophils # (auto) 0.27 K/uL (0-0.50); Eosinophils % (auto) 3.4 %; Hematocrit (blood only) 26.3 % (37.0-47.0); Hemoglobin 8.9 g/dl (12.0-16.0); Immature Granulocytes # (auto) 0.21 K/uL (0.01-0.20); Immature Granulocytes % (auto) 2.6 %; Lymphocytes # (auto) 0.84 K/uL (1.2-3.4); Lymphocytes % (auto) 10.6 %; Mean Corpuscular Hemoglobin 27.6 pg (25.0-34.0); Mean Corpuscular Hgb Conc 33.8 g/dL (32.0-36.0); Mean Corpuscular Volume 81.4 fL (80.0-100.0); Mean Platelet Volume 9.6 fL (9.4-12.4); Monocytes # (auto) 0.57 K/uL (0.11-0.59); Monocytes % (auto) 7.2 %; Neutrophils # (auto) 6.02 K/uL (1.40-6.50); Neutrophils % (auto) 75.8 %; Platelet Count 128 K/uL (130-400); RDW Standard Deviation 53.1 fL (36.4-46.3); Red Blood Count 3.23 M/uL (4.20-5.40); White Blood Count 7.94 K/ul (4.8-10.8)
[2023-02-06 07:01] LABS: Albumin Globulin Ratio 1.1 (0.9-2); Albumin Level 2.7 gm/dl (3.4-5.0); BUN Creatinine Ratio 15.1 (10-20); Bilirubin,Total 1.5 mg/dl (0.2-1.0); Calcium 8.2 mg/dl (8.6-10.3); Creatinine Clr Calc Pharmacy 75.3 ml/min; Est GFR (African American) 77.7 ml/min; Globulin 2.5 gm/dl (2.5-4.0); Magnesium 1.9 mg/dl (1.7-2.4); Phosphorus 2.3 mg/dl (2.5-4.9); Potassium 3.6 mmol/L (3.5-5.1); Total Protein 5.2 gm/dl (6.0-8.3)
[2023-02-06] MEDS: ALBUT/IPRATROP 3MG/0.5MG NEB 3 ML VIAL INH SCH (07:04)
[2023-02-06] MEDS ORDERED: LANTUS PER UNIT CHARGE SC SCH ×2 (09:00→21:00)
[2023-02-06] MEDS ORDERED: ERGOCALCIFEROL 50,000 UNITS 1250 MCG CAP PO SCH (09:00)
[2023-02-06] MEDS: INSULIN ASPART PER UNIT CHARGE SC SCH ×2 (09:14→13:25)
[2023-02-06] MEDS: clonazePAM 0.25 MG TAB PO SCH ×2 (09:16→13:35)
[2023-02-06] MEDS: ARIPIprazole 1 MG/ML ORAL SOLN 150 ML BTL PO SCH (09:23)
[2023-02-06] MEDS: CYANOCOBALAMIN (B-12) 100 MCG TABLET PO SCH (09:23)
[2023-02-06] MEDS: GABAPENTIN 300 MG CAP PO SCH (09:24)
[2023-02-06] MEDS: LACTULOSE SYRUP 10 GM/15 ML BTL 960 ML PO SCH (09:24)
[2023-02-06] MEDS: FLUTICASONE/VILANTEROL 100/25MCG 14 PUFFS/INHALER INH SCH (09:24)
[2023-02-06] MEDS: MONTELUKAST SODIUM 10 MG TABLET PO SCH (09:25)
[2023-02-06] MEDS: NYSTATIN SUSP 500,000 U/5 ML UDC PO SCH ×2 (09:25→13:26)
[2023-02-06] MEDS: lamoTRIgine 25 MG TAB PO SCH (09:25)
[2023-02-06] MEDS: lamoTRIgine 100 MG TAB PO SCH (09:25)
[2023-02-06] MEDS: METOPROLOL SUCC 25MG EXT REL TAB PO SCH (09:25)
[2023-02-06] MEDS: SUCRALFATE 1 GM TAB PO SCH (09:26)
[2023-02-06] MEDS: PANTOprazole 40 MG TAB PO SCH (09:26)
[2023-02-06] MEDS: OXYBUTYNIN CHLORIDE XL 5 MG TABCR PO SCH (09:26)
[2023-02-06] MEDS: VENLAFAXINE HCL XR 75 MG CAPXR PO SCH (09:26)
[2023-02-06] MEDS: rifAXIMin 550 MG TABLET PO SCH (09:26)
[2023-02-06] MEDS: UMECLIDINIUM BROMIDE 62.5MCG/BLISTER 7 PUFFS/INHALER INH SCH (09:26)
[2023-02-06] MEDS: TAMSULOSIN HCL 0.4 MG CAP PO SCH (09:26)
[2023-02-06] MEDS: NYSTATIN POWDER 15GM BTL EXT SCH ×2 (09:26→13:31)
[2023-02-06] MEDS: VENLAFAXINE HCL XR 150 MG CAPXR PO SCH (09:26)
[2023-02-06] MEDS: FLUTICASONE PROPIONATE NA SPR 16 GM BTL SCH (09:29)
[2023-02-06] MEDS ORDERED: POT PHOSPHATE MONOBASIC W/ SOD TAB PO SCH (09:30)
--- NOTE | 2023-02-06 10:26 | Gastroenterology Progress Note ---
Date of Service February 06, 2023 Assessment & Plan (1) Cirrhosis of liver not due to alcohol: (2) Acute blood loss anemia: Plan Her Hb baseline is approx 8-9, so the Hb of 12 on arrival likely secondary to poor hydration vs being a true baseline. Because no gross GI bleeding and EGD was completed in October 2022 w/o abnormalities, would defer EGD. Will plan for OP colonoscopy. BID po PPI. No GI contraindication to advancing diet. Continue Rifaximin 550 BID, BID PPI, lactulose BID, May restart diuretics:Spironolactone 50mg BID. torsemide 20mg daily, GI will sign off. Please recall if questions. Admission and Anticipated Discharge Date Admission Date: February 01, 2023 Subjective Awake, alert and oriented today and able to provide a reasonably detailed history. Tell me that she feels well. Hemoglobin is stable post 3 unit RBC transfusion at 8.9. No gross GI bleeding. Appetite good. Review of Systems Review of Systems: ROS: Gen: Denies weakness, fevers, weight loss Eyes: No eye redness, or pain, no recent vision changes Resp: No SOB, no cough Cardio: No palpitations/irregular beats, no chest pain GI: No abdominal pain, no nausea/vomiting : Denies pain on urination Skin: No jaundice, itching or new rashes M/S: left leg pain secondary to fx and surgery Physical Exam Constitutional: WD/WN, vitals as above Eyes: PERRL, conjunctivae normal, anicteric sclerae ENMT: external ear and nose normal, oropharynx normal Neck: trachea midline, no thyromegaly Respiratory: normal respiratory effort, lungs clear to auscultation Cardiovascular: Rate/Rhythm: regular rate and regular rhythm Gastrointestinal (Abdomen): normal bowel sounds, soft, nontender, no hepatosplenomegaly Neurologic: CN's II-XI intact bilaterally and awake AAO x 3; No asterixes. Psychiatric: slightly flat affect Lymphatic: no cervical or axillary lymphadenopathy Results & Data Vital Signs (Past 12 Hours) Vital Signs Temp Pulse Pulse Resp BP BP Pulse Ox 02/06/23 07:46 36.9 C 76 20 104/58 L 100 02/06/23 07:33 74 02/06/23 07:05 80 18 95 02/06/23 03:02 36.9 C 73 18 108/53 L 94 02/06/23 01:30 77 02/05/23 23:05 37.0 C 75 18 112/69 96 O2 Del Method 02/06/23 07:46 Room Air 02/06/23 07:33 02/06/23 07:05 Room Air 02/06/23 03:02 Room Air 02/06/23 01:30 02/05/23 23:05 Room Air Laboratory Results WBC 7.9, Hb 8.9, HCT 26.3, PLT 128, NA 134, K3.6, CL 103, CO2 26, BUN 13, CR 0.6 T. bili 0.5, AST 49, ALT 171, alk phos 203, albumin 2.7 Ammonia 16 Diagnostic Findings Non contrast CTAP 02/03 1. The unenhanced kidneys demonstrate no hydronephrosis or obvious obstructive nephrolithiasis. 2. No evidence for bowel obstruction. Evaluation of the bowel mucosa is limited without contrast and respiratory artifact. Prominent stool burden noted throughout the colon. This is of uncertain clinical significance and may represent normal variation or a component of constipation. No free intraperitoneal fluid or pneumoperitoneum. 3. The spleen is prominent in size, measuring 14 cm in length. No obvious focal splenic abnormality. Abd US 02/02 No ascites. Doppler US 02/02/23: No evidence for portal vein thrombosis.
--- NOTE | 2023-02-06 12:22 | Hospitalist Progress Note ---
Date of Service February 06, 2023 Assessment & Plan (1) Femoral distal fracture: Plan: Status post fall with left femoral fracture Appreciate Cardiology input for optimization and risk stratifcation Appreciate Ortho input and recommendation Status post left femur open reduction and internal fixation on 02/02/2023 Pain is controlled at rest We will continue with PT and OT evaluation-recommended rehab Will be transferred to [facility] this afternoon Aspirin 81 mg twice daily for DVT prophylaxis for 6 weeks (2) UTI (urinary tract infection): Plan: Was previously on ciprofloxacin then was switched to levaquin due to pruritis. Levaquin was continued on admission Developed fever of 38 C early in the morning on 03 February following surgery and lactate was elevated at the time with low blood pressure She received 1 L normal saline bolus and also antibiotic were changed to intravenous ertapenem and daptomycin Later on ID was consulted who recommended antibiotics to be discontinued Antibiotics and antifungal were discontinued as of today 02-26 Discussed with the daughters Does not have any signs and or symptoms of UTI . (3) Encounter for pre-operative examination: (4) Abdominal distension: Plan: -History of GONZALEZ cirrhosis. -Family felt patient's abdomen and legs are more swollen--> bilateral lower extremity ultrasound negative for DVT, Abdominal ultrasound negative for ascites, Portal venous u/s negative for thrombus -Home torsemide, spironolactone held currently due to hypotension- will resume -continue rifaxamin -Lactulose held today due to multiple diarrhea. C diff ordered -Lactulose has been restarted from today as stool is forming -C. difficile has not been collected yet-no more diarrhea (5) Sepsis associated hypotension: Plan: Sepsis has been ruled out Likely source following the procedure with hypotension Condition resolved (6) Anemia: Plan: -Worsening anemia in setting of acute blood loss related to surgery yesterday. -Received 2 unit pRBC. Repeat CBC now -Iron deficiency, will need supplement started at discharge -Hemoglobin remains stable at 8.9 today that is 02/06/2023 -GI consult for anemia workkup -Appreciate GI input and recommendation Plan Other significant medical conditions are as below: CAD with prior CABG Moderate -continue statin, aspirin Questionable reactive airway disease -continue inhaler/nebulizers (family states patient carries a diagnosis of "COPD" but never had formal testing) T2DM Gastroparesis Neuropathy -hold gabapentin due to delirium yesterday -hold trulicity -glycemic pharmacy management Anxiety Depression bipolar disorder -continue home medications Chronic back pain -continue MS contin 15mg QHS PRN and oxycodone 5mg Q 8 PRN Hypothyroidism -continue synthroid DVT ppx SCDs for now Dispo- Will need PT/OT evaluation for discharge planning Code status- full for now, discussed with daughters We will discuss with the daughters and the patient will be discharged at 3 PM to [facility] Admission and Anticipated Discharge Date Admission Date: February 01, 2023 Subjective 02/05/2023 The patient was seen and examined in medical telemetry unit She has been stable and remains pleasantly confused Denies any significant symptoms Stool seems to be forming urine initiate lactulose 02/06/2023 The patient was seen and examined in medical telemetry unit She has been much better today and looks brighter She wants to get out of the hospital today Denies any significant symptoms Review of Systems Review of Systems: All systems reviewed and are unremarkable except as noted below Physical Exam Physical Exam: Lying in bed comfortably Constitutional: well developed and + morbidly obese; not ill appearing Eyes: PERRL, conjunctivae normal, anicteric sclerae ENMT: external ear and nose normal, oropharynx normal Neck: trachea midline, no thyromegaly Respiratory: no respiratory distress Auscultation: + diminished lung sounds; no crackles (Minimal crackles at the bases) Cardiovascular: Rate/Rhythm: regular rate and regular rhythm; not tachycardic Heart Sounds: normal S1 and normal S2; no murmur Extremities: + edema (Trace edema bilaterally) Gastrointestinal (Abdomen): Inspection/Auscultation: + abdomen distended and normal bowel sounds Percussion/Palpation: abdomen soft; abdomen nontender Musculoskeletal: Left femur is in bandage. Pain with movement Neurologic: Alert, awake and oriented x3. Generally weak but no focal neurodeficit Lymphatic: no cervical or axillary lymphadenopathy Results & Data Results & Data Vital Signs (Past 12 Hours) Vital Signs Temp Pulse Pulse Resp BP BP Pulse Ox 02/06/23 11:29 36.8 C 80 20 115/72 96 02/06/23 07:46 36.9 C 76 20 104/58 L 100 02/06/23 07:33 74 02/06/23 07:05 80 18 95 02/06/23 03:02 36.9 C 73 18 108/53 L 94 02/06/23 01:30 77 O2 Del Method 08/03/23 11:29 Room Air 02/06/23 07:46 Room Air 02/06/23 07:33 02/06/23 07:05 Room Air 02/06/23 03:02 Room Air 02/06/23 01:30 Laboratory Results Short CBC 02/06/23 Range/Units 06:16 WBC 7.94 (4.8-10.8) K/ul Hgb 8.9 L (12.0-16.0) g/dl Hct 26.3 L (37.0-47.0) % Plt Count 128 L (130-400) K/uL BMP 02/06/23 06:16 Sodium 134 L Potassium 3.6 Chloride 103 Carbon Dioxide 26 BUN 13 Creatinine 0.86 Glucose 100 H Calcium 8.2 L Liver Function 02/06/23 Range/Units 06:16 Total Bilirubin 1.5 H (0.2-1.0) mg/dl AST 32 (13-39) U/L ALT 9 (7-52) U/L Alkaline Phosphatase 94 (34-104) U/L Albumin 2.7 L (3.4-5.0) gm/dl Medications Administered Current Inpatient Medications Acetaminophen (Acetaminophen 500 Mg Tab) 1,000 mg PO Q8 [facility] Stop: 03/05/23 04:59 Last Admin: 02/06/23 05:45 Dose: 1,000 mg Albuterol (Albuterol Hfa 8 Gm Inhaler) 2 puffs INH QID PRN PRN Reason: Wheezing Stop: 03/03/23 21:28 Albuterol (Albut/Ipratrop 3mg/0.5mg Neb 3 Ml Vial) 3 ml INH BIDR [facility]; Protocol Stop: 03/07/23 18:59 Last Admin: 02/06/23 07:04 Dose: 3 ml Aripiprazole (Aripiprazole 1 Mg/Ml Oral Soln 150 Ml Btl) 2 mg PO QAM [facility] Stop: 03/04/23 08:59 Last Admin: 02/06/23 09:23 Dose: 2 mg Aspirin (Aspirin 81 Mg Ectab) 81 mg PO QAM [facility] Stop: 03/04/23 08:59 Last Admin: 02/02/23 07:43 Dose: 81 mg Aspirin (Aspirin 81 Mg Ectab) 81 mg PO BID [facility] Stop: 03/04/23 20:59 Last Admin: 02/05/23 21:48 Dose: 81 mg Atorvastatin Calcium (Atorvastatin 40 Mg Tab) 40 mg PO QAM [facility] Stop: 03/04/23 08:59 Last Admin: 02/02/23 07:37 Dose: 40 mg Clonazepam (Clonazepam 0.25 Mg Tab) 0.25 mg PO TID [facility] Stop: 03/05/23 13:59 Last Admin: 02/06/23 09:16 Dose: 0.25 mg Cyanocobalamin (Cyanocobalamin (B-12) 100 Mcg Tablet) 100 mcg PO QAM [facility] Stop: 03/06/23 08:59 Last Admin: 02/06/23 09:23 Dose: 100 mcg Dextrose (Dextrose 50% 50 Ml Syringe) 25 - 50 ml IV UD PRN; Protocol PRN Reason: Hypoglycemia Protocol Stop: 03/03/23 19:11 Dicyclomine HCl (Dicyclomine Hcl 20 Mg Tab) 10 mg PO QID PRN PRN Reason: ABD PAIN Stop: 03/03/23 21:28 Last Admin: 02/04/23 22:01 Dose: 10 mg Ergocalciferol (Ergocalciferol 50,000 Units 1250 Mcg Cap) 50,000 units PO Th [facility] Stop: 03/08/23 08:59 Last Admin: 02/06/23 09:23 Dose: 50,000 units Fluticasone Propionate (Fluticasone Propionate Na Spr 16 Gm Btl) 2 sprays NA DAILY [facility] Stop: 03/04/23 08:59 Last Admin: 02/06/23 09:29 Dose: Not Given Fluticasone/Vilanterol (Fluticasone/Vilanterol 100/25mcg 14 Puffs/Inhaler) 1 puffs INH DAILY [facility] Stop: 03/04/23 08:59 Last Admin: 02/06/23 09:24 Dose: 1 puffs Gabapentin (Gabapentin 300 Mg Cap) 300 mg PO BID [facility] Stop: 03/03/23 21:28 Last Admin: 02/06/23 09:24 Dose: 300 mg Glucagon (Glucagon For Inj 1 Mg Vial) 1 mg SQ UD PRN; Protocol PRN Reason: Hypoglycemia Protocol Stop: 03/03/23 19:11 Glucose (Glucose 40% Gel 15 Gm Tube) 15 - 30 gm PO UD PRN; Protocol PRN Reason: Hypoglycemia Protocol Stop: 03/03/23 19:11 Glucose (Glucose 10 Tab/Tube) 4 - 8 tab PO UD PRN; Protocol PRN Reason: Hypoglycemia Treatment Stop: 03/03/23 19:11 Haloperidol Lactate (Haloperidol Lactate 5 Mg/Ml 1 Ml Vial) 2.5 mg IM Q8H PRN PRN Reason: agitation Stop: 03/05/23 10:22 Insulin Aspart (Insulin Aspart Per Unit Charge) 0 units SC ACHS [facility] Stop: 03/03/23 21:44 Last Admin: 02/06/23 09:14 Dose: 2 units Insulin Glargine (Lantus Per Unit Charge) 25 units SC QAM [facility] Stop: 03/08/23 08:59 Last Admin: 02/06/23 09:15 Dose: 25 units Insulin Glargine (Lantus Per Unit Charge) 0 units SC [facility]; Protocol Stop: 03/08/23 20:59 Lactulose (Lactulose Syrup 10 Gm/15 Ml Btl 960 Ml) 45 gm PO BID [facility] Stop: 03/03/23 21:59 Last Admin: 02/06/23 09:24 Dose: 45 gm Lamotrigine (Lamotrigine 25 Mg Tab) 25 mg PO QAM [facility] Stop: 03/04/23 08:59 Last Admin: 02/06/23 09:25 Dose: 25 mg Lamotrigine (Lamotrigine 100 Mg Tab) 100 mg PO QAM [facility] Stop: 03/04/23 08:59 Last Admin: 02/06/23 09:25 Dose: 100 mg Lamotrigine (Lamotrigine 25 Mg Tab) 50 mg PO PM [facility] Stop: 03/03/23 21:59 Last Admin: 02/05/23 21:49 Dose: 50 mg Levothyroxine Sodium (Levothyroxine Sodium 88 Mcg Tablet) 88 mcg PO DAILYBB [facility] Stop: 03/04/23 06:29 Last Admin: 02/06/23 05:45 Dose: 88 mcg Methenamine Hippurate (Methenamine Hippurate 1 Gm Tab) 1 gm PO BID [facility] Stop: 02/11/23 21:28 Last Admin: 02/02/23 20:57 Dose: 1 gm Metoclopramide HCl (Metoclopramide Hcl Inj 5 Mg/Ml 2 Ml Vial) 10 mg IV Q6H PRN PRN Reason: Nausea Stop: 03/03/23 18:28 Metoprolol Succinate (Metoprolol Succ 25mg Ext Rel Tab) 25 mg PO QAM [facility] Stop: 03/04/23 08:59 Last Admin: 02/06/23 09:25 Dose: 25 mg Miscellaneous (Carbohydrates For Hypoglycemia ) 15 - 30 gm PO UD PRN PRN Reason: Hypoglycemia Protocol Stop: 03/03/23 19:11 Miscellaneous Information (Pharmacy Glycemic Mgmt Consult) 1 each N/A UD PRN; Protocol PRN Reason: Consult Stop: 03/03/23 19:09 Montelukast Sodium (Montelukast Sodium 10 Mg Tablet) 10 mg PO QAM [facility] Stop: 03/04/23 08:59 Last Admin: 02/06/23 09:25 Dose: 10 mg Morphine Sulfate (Morphine Sulfate Cr 15 Mg Tabcr) 15 mg PO HS PRN PRN Reason: Severe Pain (Scale Score 7-10) Stop: 02/15/23 21:28 Nystatin (Nystatin Susp 500,000 U/5 Ml Udc) 5 ml PO QID [facility] Stop: 02/11/23 21:28 Last Admin: 02/06/23 09:25 Dose: 5 ml Nystatin (Nystatin Powder 15gm Btl) 1 appln EXT TID [facility] Stop: 03/03/23 21:28 Last Admin: 02/06/23 09:26 Dose: 1 appln Oxybutynin Chloride (Oxybutynin Chloride Xl 5 Mg Tabcr) 10 mg PO QAM [facility] Stop: 03/04/23 08:59 Last Admin: 02/06/23 09:26 Dose: 10 mg Oxycodone HCl (Oxycodone Hcl Ir 5 Mg Tab (Immediate Release)) 5 mg PO Q4H PRN PRN Reason: Pain Stop: 02/17/23 10:25 Last Admin: 02/04/23 10:29 Dose: 5 mg Pantoprazole Sodium (Pantoprazole 40 Mg Tab) 40 mg PO BID [facility] Stop: 03/03/23 21:28 Last Admin: 02/06/23 09:26 Dose: 40 mg Potassium Phosphate (Pot Phosphate Monobasic W/ Sod Tab) 2 tab PO BID [facility] Stop: 03/08/23 09:29 Rifaximin (Rifaximin 550 Mg Tablet) 550 mg PO BID [facility] Stop: 03/03/23 21:28 Last Admin: 02/06/23 09:26 Dose: 550 mg Spironolactone (Spironolactone 25 Mg Tab) 50 mg PO BID [facility] Stop: 03/03/23 21:28 Last Admin: 02/05/23 09:54 Dose: 50 mg Sucralfate (Suc[facility]ate 1 Gm Tab) [facility] [place] Stop: 03/04/23 08:59 Last Admin: 02/06/23 09:26 Dose: 1 gm Tamsulosin HCl (Tamsulosin Hcl 0.4 Mg Cap) 0.4 mg PO QAM [facility] Stop: 03/04/23 08:59 Last Admin: 02/06/23 09:26 Dose: 0.4 mg Torsemide (Torsemide 10 Mg Tab) 20 mg PO QAM [facility] Stop: 03/04/23 08:59 Last Admin: 02/03/23 09:16 Dose: Not Given Trazodone HCl (Trazodone Hcl 50 Mg Tab) 50 mg PO HS [facility] Stop: 03/03/23 21:28 Last Admin: 02/05/23 21:51 Dose: 50 mg Umeclidinium Hoffman (Umeclidinium Hoffman 62.5mcg/Blister 7 Puffs/Inhaler) 1 puffs INH [facility] Stop: 03/04/23 08:59 Last Admin: 02/06/23 09:26 Dose: 1 puffs Venlafaxine HCl (Venlafaxine Hcl Xr 150 Mg Capxr) [facility] [place] Stop: 03/04/23 08:59 Last Admin: 02/06/23 09:26 Dose: 150 mg Venlafaxine HCl (Venlafaxine Hcl Xr 75 Mg Capxr) [facility] [place] Stop: 03/04/23 08:59 Last Admin: 02/06/23 09:26 Dose: 75 mg (1) Femoral distal fracture Encounter type: initial encounter Fracture morphology: unspecified fracture morphology Fracture type: closed Laterality: left Qualified Code(s): S72.402A - Unspecified fracture of lower end of left femur, initial encounter for closed fracture (2) UTI (urinary tract infection) Hematuria presence: without hematuria Urinary tract infection type: site unspecified Qualified Code(s): N39.0 - Urinary tract infection, site not specified (6) Anemia Anemia type: unspecified type Qualified Code(s): D64.9 - Anemia, unspecified
[2023-02-06] MEDS: ASPIRIN 81 MG ECTAB PO SCH (13:24)
[2023-02-06] MEDS ORDERED: POTASSIUM CHLORIDE CRTAB 20 MEQ TABCR PO STA (13:30)
--- NOTE | 2023-02-06 13:35 | Cardiology Progress Note ---
Date of Service February 06, 2023 Assessment & Plan (1) CAD (coronary artery disease), [place] coronary artery: (2) Chronic heart failure with preserved ejection fraction: (3) Edema leg: (4) Postoperative anemia: Plan 72-year-old female with complex cardiovascular history noted above. Orthopedic surgery performed 02/02/2023. Postoperative anemia with hemoglobin down to 6.6 g/dL status post 3 units packed red blood cells. Hemoglobin stable today. Appears compensated from a cardiovascular perspective without anginal symptoms. Received 1 dose of IV furosemide yesterday. Aldactone currently on hold due to hyponatremia. Recommend restart torsemide 20 mg daily. Consider restarting spironolactone in a.m. Pending review of a.m. labs euvolemic on exam. Continue other cardiovascular medications aspirin, and beta-allie. Admission and Anticipated Discharge Date Admission Date: February 01, 2023 Subjective Patient seen examined the bedside. Feeling better today. Notes fatigue. Pain controlled. No palpitations or shortness of breath. Brief episode of PSVT at about 150 bpm occurring overnight. Currently sinus rhythm Review of Systems Review of Systems: All systems reviewed & are unremarkable except as noted in Subjective Physical Exam Constitutional: well nourished; no acute distress Respiratory: no respiratory distress, no labored breathing and no retractions Auscultation: no crackles, no rales, no rhonchi and no wheezes Cardiovascular: Rate/Rhythm: regular rate and regular rhythm Heart Sounds: normal S1, normal S2 and + murmur (2/6 systolic ejection murmur heard at the base) Vessels: no JVD Extremities: + edema (Mild bilateral pedal edema) Gastrointestinal (Abdomen): Inspection/Auscultation: abdomen normal to inspection and normal bowel sounds; abdomen not distended Percussion/Palpation: abdomen soft; abdomen nontender, no guarding and abdomen not rigid Neurologic: CN's II-XI intact bilaterally and moves all extremities; no focal motor deficits Results & Data Vital Signs (Past 12 Hours) Vital Signs Temp Pulse Pulse Resp BP BP Pulse Ox 02/06/23 11:29 36.8 C 80 20 115/72 96 02/06/23 07:46 36.9 C 76 20 104/58 L 100 02/06/23 07:33 74 02/06/23 07:05 80 18 95 02/06/23 03:02 36.9 C 73 18 108/53 L 94 02/06/23 01:30 77 O2 Del Method 02/06/23 11:29 Room Air 02/06/23 07:46 Room Air 02/06/23 07:33 02/06/23 07:05 Room Air 02/06/23 03:02 Room Air 02/06/23 01:30 Laboratory Results Cardiac Enzymes 02/06/23 Range/Units 06:16 AST 32 (13-39) U/L CBC 02/06/23 Range/Units 06:16 WBC 7.94 (4.8-10.8) K/ul RBC 3.23 L (4.20-5.40) M/uL Hgb 8.9 L (12.0-16.0) g/dl Hct 26.3 L (37.0-47.0) % Plt Count 128 L (130-400) K/uL Neut # (Auto) 6.02 (1.40-6.50) K/uL Lymph # (Auto) 0.84 L (1.2-3.4) K/uL [place] # (Auto) 0.57 (0.11-0.59) K/uL Eos # (Auto) 0.27 (0-0.50) K/uL Baso # (Auto) 0.03 (0-0.2) K/uL Comprehensive Metabolic Panel 02/06/23 Range/Units 06:16 Sodium 134 L (136-145) mmol/L Potassium 3.6 (3.5-5.1) mmol/L Chloride 103 (98-107) mmol/L Carbon Dioxide 26 (21-32) mmol/L BUN 13 (6-23) mg/dl Creatinine 0.86 (0.6-1.2) mg/dl Glucose 100 H (70-99(Fasting)) mg/dl Calcium 8.2 L (8.6-10.3) mg/dl AST 32 (13-39) U/L ALT 9 (7-52) U/L Alkaline Phosphatase 94 (34-104) U/L Total Protein 5.2 L (6.0-8.3) gm/dl Albumin 2.7 L (3.4-5.0) gm/dl Intake and Output 02/05/23 02/06/23 02/06/23 22:59 06:59 14:59 Intake Total 150 / 1290 200 / 1290 Output Total 175 / 3725 999 / 372 Balance -1599 / -2435 -800 / -2435 Intake: Oral 150 / 470 200 / 470 Output: Urine Amount (Catheter) 1749 / 3724 Gallagher/Indwelling 1749 / 3724 Other: Weight 115.6 kg Weight Measurement Method Built in [facility]
[2023-02-06] MEDS: oxyCODONE HCL IR 5 MG TAB (IMMEDIATE RELEASE) PO PRN (14:36)
--- NOTE | 2023-02-07 17:19 | Discharge Summary ---
Date of Service February 07, 2023 Admission HPI Per Admitting Provider Ms Angelina Ballard is a 72 year old female with a complex medical history of type 2 DM with neuropathy and gastroparesis on insulin, HLD, hypothyroidism, CKD stage 3a, moderate aortic stenosis, CAD with prior CABG in 2010 and cardiac cath 2009, GONZALEZ cirrhosis, anxiety, bipolar disorder here with left leg pain after falling after leaving home for a doctor's appointment. Patient has a history of recurrent UTIs (almost monthly) and is currently on levaquin for her latest treatment course. She was previously on ciprofloxaci but developed pruritis so she was switched to levaquin. She also has not been feeling, and according to her daughter she has been running low grade temp (Tmax 99.4). And feeling very fatigued. Also with chest congestion with cough and scant mucous production. Up to date on all vaccinations including Covid 19. Today, she had an appointment at [facility] for her above symptoms and as she was walking out of her house, she felt very weak and her "legs gave out" and she fell. Here, in the ER she was found to have a left femur fracture above the knee. On ROS- she suffers from gastroparesis so she has chronic nausea but no vomiting. Family reports she is having increasing abdominal distension and leg swelling. She takes torsemide and has taken additional torsemide under the direction of her doctor but with no improvement in her leg swelling. She is in the process of being referred to see a lymphedema clinic. Patient reports feeling dyspneic with exertion and palpitations but no chest pain. Baseline she ambulates with a walker but is not very active. Patient last had surgery last year when she underwent hip surgery. She has a history of hospital delirium but overall did well from her surgery. Admission Exam Per Admitting Provider Physical Exam: appears older than her age, chronically ill appearing, discomfort related to her left leg ENMT: neck thick, mucous membrane moist, normocephalic Respiratory: No wheezing/rhonchi/rales Cardiovascular: +systolic murmur, regular rate and rhythm Gastrointestinal (Abdomen): +BS, soft, +distended, +obese Musculoskeletal: +left leg with swelling, pain, bilateral non pitting edema Neurologic: awake, alert, answering questions appropriately Psychiatric: anxious, speech linear, non pressured Principal Diagnosis Left Femur Fracture, acute blood loss anemia status post blood transfusion, cirrhosis of the liver, CAD history of prior CABG, type 2 diabetes Discharge Exam Lying in bed comfortably Constitutional well developed and + morbidly obese; not ill appearing Eyes PERRL, conjunctivae normal, anicteric sclerae ENMT external ear and nose normal, oropharynx normal Neck trachea midline, no thyromegaly Respiratory no respiratory distress Auscultation: + diminished lung sounds; no crackles (Minimal crackles at the bases) Cardiovascular Rate/Rhythm: regular rate and regular rhythm; not tachycardic Heart Sounds: normal S1 and normal S2; no murmur Extremities: + edema (Trace edema bilaterally) Gastrointestinal (Abdomen) Inspection/Auscultation: + abdomen distended and normal bowel sounds Percussion/Palpation: abdomen soft; abdomen nontender Lymphatic no cervical or axillary lymphadenopathy Discharge Data Allergies Allergy/AdvReac Type Severity Reaction Status Date / Time propoxyphene Allergy Intermediate Rash Verified 02/01/23 16:28 fentanyl AdvReac Intermediate PANIC Verified 02/01/23 16:28 WANTS TO RUN AND AGGRESSIVE methocarbamol AdvReac Intermediate DELERIUM Verified 02/01/23 16:28 zolpidem AdvReac Intermediate confusion Verified 02/01/23 16:28 Consultations 02/01/23 17:16 ED Decision to Admit Stat 02/01/23 18:48 Consult Cardiology Routine Consult Orthopedic Surgery Routine 02/04/23 09:31 Consult Infectious Diseases Routine 02/04/23 19:17 Consult Gastroenterology Routine Procedures Performed Operation Date: 02/02/23 09:30 Actual Procedures p Left Femur Open Reduction Internal Fixation(Left) - Tommie Ruiz DO Ordered Studies 02/01/23 17:27 CT knee LT wo con Stat 02/02/23 FL femur LT 2V Routine US duplex portal hepatic veins Routine US renal/blad retro comp Routine US venous doppler LE BI Routine 02/02/23 08:29 US abdomen ltd ascites Routine 02/03/23 21:46 CT Abd and Pelvis [CT abd pelvis wo con] Stat Hospital Course (1) Femoral distal fracture: Status post fall with left femoral fracture Appreciate Cardiology input for optimization and risk stratifcation Appreciate Ortho input and recommendation Status post left femur open reduction and internal fixation on 02/02/2023 Pain is controlled at rest We will continue with PT and OT evaluation-recommended rehab Will be transferred to [facility] this afternoon Aspirin 81 mg twice daily for DVT prophylaxis for 6 weeks (2) UTI (urinary tract infection): Was previously on ciprofloxacin then was switched to levaquin due to pruritis. Levaquin was continued on admission Developed fever of 38 C early in the morning on 03 February following surgery and lactate was elevated at the time with low blood pressure She received 1 L normal saline bolus and also antibiotic were changed to intravenous ertapenem and daptomycin Later on ID was consulted who recommended antibiotics to be discontinued Antibiotics and antifungal were discontinued as of today 8 Discussed with the daughters Does not have any signs and or symptoms of UTI . (3) Encounter for pre-operative examination: (4) Abdominal distension: -History of GONZALEZ cirrhosis. -Family felt patient's abdomen and legs are more swollen--> bilateral lower extremity ultrasound negative for DVT, Abdominal ultrasound negative for asc ites, Portal venous u/s negative for thrombus -Home torsemide, spironolactone held currently due to hypotension- will resume -continue rifaxamin -Lactulose held today due to multiple diarrhea. C diff ordered -Lactulose has been restarted from today as stool is forming -C. difficile has not been collected yet-no more diarrhea (5) Sepsis associated hypotension: Sepsis has been ruled out Likely source following the procedure with hypotension Condition resolved (6) Anemia: -Worsening anemia in setting of acute blood loss related to surgery yesterday. -Received 2 unit pRBC. Repeat CBC now -Iron deficiency, will need supplement started at discharge -Hemoglobin remains stable at 8.9 today that is 02/06/2023 -GI consult for anemia workkup -Appreciate GI input and recommendation Plan Other significant medical conditions are as below: CAD with prior CABG Moderate -continue statin, aspirin Questionable reactive airway disease -continue inhaler/nebulizers (family states patient carries a diagnosis of "COPD" but never had formal testing) T2DM Gastroparesis Neuropathy -hold gabapentin due to delirium yesterday -hold trulicity -glycemic pharmacy management Anxiety Depression bipolar disorder -continue home medications Chronic back pain -continue MS contin 15mg QHS PRN and oxycodone 5mg Q 8 PRN Hypothyroidism -continue synthroid DVT ppx SCDs for now Dispo- Will need PT/OT evaluation for discharge planning Code status- full for now, discussed with daughters We will discuss with the daughters and the patient will be discharged at 3 PM to [facility] Total Time Total Time Spent Total Time Spent (In Minutes): 45 minutes Discharge Plan Discharge Items Patient Disposition: Transfer Inpatient Rehab Fac Reason For Visit: LEFT FEMUR FRACTURE Discharge Diagnosis: Left Femur Fracture, acute blood loss anemia status post blood transfusion, cirrhosis of the liver, CAD history of prior CABG, type 2 diabetes Condition on Discharge: Fair Activity: As commented below Activity Comment: Will need PT and OT Weightbearing: Left weightbearing Weightbearing Comment: as tolerated with walker Non-emergency contact: Surgeon Call non-emergency contact if: your pain is not controlled, your temperature is above 101.5, your wound has increased redness and your wound has increased drainage Follow-up/Referrals: Brian Domínguez MD [Primary Care Provider] - Tommie Ruiz DO [Surgeon] - (Follow up with Dr Ruiz in 2 weeks from the day of your surgery for your first post operative visit) Diet: Carb Consistent or DM2 and Low Sodium (2gm) Addtl Attending Provider Instructions: Please take precautions to avoid falls Your Lantus has been decreased to 20 mg twice daily and metformin has been stopped Your clonazepam has been decreased to 0.25 mg 3 times daily [facility] DISCHARGE INSTRUCTIONS: HIP FRACTURE SELF CARE INSTRUCTIONS: A. You are to ambulate with a walker or crutches for approximately 6 weeks. B. You are WEIGHT BEARING TOLERATED on your operative lower extremity for at least 6 weeks. C. Wear low heeled shoes with non-slip soles D. Be sure that your floors are free of things that could trip you throw rugs, electrical cords, and small objects. Avoid wet and waxed floors, especially with crutches/walker/cane. E. Try to walk several times a day with rest periods between. F. You may shower 48 hours after surgery and get the incision area wet, but DO NOT soak or submerge incision area in water. (No baths, swimming pools, hot tubs) G. You may have a large, band-aid like dressing over your incision (Aquacel). This will remain on your incision for 7 days, and then can be removed. You CAN shower with this on. If incision is leaking through the dressing, please call the office . H. Do NOT apply soap or any ointment/lotions directly over incision. I. You may use ice as needed to operative site. SPECIAL CARE INSTRUCTIONS: VERY IMPORTANT TO READ AND REVIEW A. You may be at risk for phlebitis or blood clots. a. Wear surgical stockings (ELINA hose) for 2 weeks after surgery to improve circulation and reduce swelling. b. Take ASPIRIN 81 mg po BID for 4 weeks or as directed. This is your blood thinner. B. There are a few signs you need to watch for after you are home. Call [facility] at [phone] if you experience any of the following: a. If you have a temperature of 101 degrees or higher. b. Sudden increase in pain in your hip not relieved by rest or pain medication. c. Any fluid or drainage from the incision; redness of the incision. d. Shortness of breath or chest pain. C. Pain Medication: a. You will be prescribed pain medication upon discharge that should last till your first post-operative appointment. b. If you experience nausea and/or skin rash, discontinue this medication and contact our office for an alternative medication. c. Caution- narcotic pain medication can cause constipation. FOLLOW UP VISIT: Please call [facility] at [phone] to schedule a follow up appointment 10-14 days from the date of your surgery date. Pending Studies at Discharge: No Stand-Alone Forms: [facility] Skilled Items Patient informed of condition?: Yes DNR: No Discharge Level of Care: Acute rehab Communicable Disease: No Discharge Prognosis: Stable Lines: None Urinary Catheter: Yes Medications and DC Order Prescriptions: New aspirin 81 mg Tablet,Delayed Release (Dr/Ec) 81 mg PO BID 40 Days Qty: 80 0RF Continued atorvastatin 40 mg Tablet 40 mg PO QAM acetaminophen [Tylenol] 325 mg Tablet 650 mg PO Q4 PRN (Reason: Pain (Scale Score 1-3)) lamotrigine [Lamictal] 25 mg tablet See Rx Instructions .ROUTE .COMPLEX Rx Instructions: TOTAL DOSE 125 MG QAM--TAKES WITH 100 MG TAB, THEN TAKES 2-25 MG TABS FOR 50 MG QPM. levothyroxine 88 mcg tablet 88 mcg PO QAM tamsulosin 0.4 mg Capsule 0.4 mg PO QAM dicyclomine 20 mg Tablet 10 mg PO QID PRN (Reason: ABD PAIN) pantoprazole 40 mg Tablet,Delayed Release (Dr/Ec) 40 mg PO BID gabapentin 300 mg capsule 300 mg PO BID montelukast 10 mg Tablet 10 mg PO QAM metoprolol succinate 25 mg Tablet Extended Release 24 Hr 25 mg PO QAM ergocalciferol (vitamin D2) [Vitamin D2] 1,250 mcg (50,000 unit) Capsule 1,250 mcg PO WK Rx Instructions: THURSDAYS lamotrigine [Lamictal] 100 mg Tablet 100 mg PO QAM Rx Instructions: TOTAL DOSE 125 MG--TAKES WITH 25 MG TAB. oxycodone 5 mg tablet 5 mg PO Q8 PRN (Reason: Pain) Xifaxan 550 mg Tablet 550 mg PO BID Trulicity 4.5 mg/0.5 mL pen injector 4.5 mg SUBCUT WK Rx Instructions: MONDAYS venlafaxine [Effexor XR] 75 mg capsule,extended release 24hr 75 mg PO QAM Rx Instructions: TOTAL DOSE 225 MG--TAKES WITH 150 MG CAP. FILLED 11/23/22 FOR 90 DAYS aspirin 81 mg Tablet,Delayed Release (Dr/Ec) 81 mg PO QAM ascorbic acid (vitamin C) [Vitamin C] 500 mg Tablet 500 mg PO BID estradiol [Estrace] 0.01 % (0.1 mg/gram) Cream 1 g VAGINAL HS albuterol sulfate 90 mcg/actuation Hfa Aerosol Inhaler 2 puff INHALATION QID PRN (Reason: Wheezing) aripiprazole 2 mg Tablet 2 mg PO QAM ipratropium-albuterol 0.5 mg-3 mg(2.5 mg base)/3 mL Solution For Nebulization 3 ml INHALATION QID ondansetron HCl 8 mg Tablet 8 mg PO Q8H PRN (Reason: NAUSEA/VOMITING) sucralfate 1 gram tablet 1 g PO QAM famotidine 40 mg Tablet 40 mg PO DAILY venlafaxine 150 mg capsule,extended release 24hr 150 mg PO QAM Rx Instructions: TOTAL DOSE 225 MG--TAKES WITH 75 MG CAP. LAST FILLED 11/23/22 FOR 90 DAYS. methenamine hippurate 1 gram tablet 1 g PO BID potassium chloride [Klor-Con M20] 20 mEq tablet,ER particles/crystals 20 meq PO DAILY nitroglycerin [Nitrostat] 0.4 mg Tablet, Sublingual 0.4 mg sublingual DIRECTED PRN (Reason: Chest Pain) morphine 15 mg tablet extended release 15 mg PO HS PRN (Reason: Severe Pain (Scale Score 7-10)) fluticasone propionate 50 mcg/actuation [place],Suspension 2 spray INTRANASAL DAILY PRN (Reason: Congestion) Rx Instructions: administer into each nostril spironolactone 50 mg tablet 50 mg PO BID Spiriva Respimat 2.5 mcg/actuation Mist 2 inh INHALATION QAM nystatin 100,000 unit/mL suspension 5 ml mucous membrane QID Rx Instructions: STARTED 01/28/23 FOR 12 DAYS oxybutynin chloride 10 mg tablet extended release 24hr 10 mg PO QAM nystatin [Nyamyc] 100,000 unit/gram powder 1 applic TOPICAL TID Rx Instructions: STARTED 01/15/23 FOR 10 DAYS diclofenac sodium 1 % Gel 2 g TOPICAL BID PRN (Reason: Pain) torsemide 20 mg Tablet 20 mg PO QAM Rx Instructions: MAY TAKE 1 ADDITIONAL TABLET NEEDED FOR SWELLING trazodone 50 mg Tablet 50 mg PO HS lactulose 10 gram/15 mL Solution 45 g PO BID budesonide-formoterol [Symbicort] 160-4.5 mcg/actuation Hfa Aerosol Inhaler 2 inh INHALATION BID Changed clonazepam 0.5 mg Tablet 0.25 mg PO TID Qty: 1 0RF insulin glargine [Basaglar KwikPen U-100 Insulin] 100 unit/mL (3 mL) insulin pen 20 unit SUBCUT BID Qty: 15 0RF Discontinued metformin 500 mg tablet extended release 24 hr 500 mg PO QDD levofloxacin 500 mg tablet 500 mg PO QAM Rx Instructions: STARTED 01/27/23 FOR 7 DAYS. Discharge Orders: Discharge Order (Routine); Ordered 02/06/23 Ordered By: David Doshi/Other Patient Handouts: Managing Type 2 Diabetes, [facility] for Diabetes Admission Data Admit Date/Time: 02/01/23 18:44 Attending Provider: David Chery Admit Provider: Rosalia Dumont Primary Care Provider: Brian Domínguez Other Providers: Rosalia Dumont ; Gonzalo Prieto ; Tommie Ruiz ; [facility] ; Indra Montes ; Hellen De Leon ; Sdiney Holley I. ; Emerson Kothari II ; Vidya Palmer ; Tony Mae ; Kendall Bell ; Buzz Wall ; Wendy Frias Other Interventions: Discharge Summary Assessment (RN) Last Done: 02/06/23 14:47
== END 2023-02-06 15:25 | DRG 481 ==
LOC: ED 15:25 → SUATTDRO 18:44 → 2W 18:44

== ENCOUNTER 2023-02-07 19:41 | Inpatient (IN) ==
--- NOTE | 2023-02-07 20:22 | Emergency Department Note ---
Impression & Plan Encephalopathy, Non-ST elevation [place] (NSTEMI), Acute hyponatremia, Hypocalcemia ED Provider Note HISTORY OF PRESENT ILLNESS: Patient is a 72-year-old female presenting with altered mental status. Patient presents from [facility] where at 1830 she reportedly became "unresponsive." Family member provides history and reports the patient seemed very out of it and was not responding to verbal or physical stimuli. No reported seizure-like activity. Reports that patient has been significantly altered ever since. She is normally conversant and oriented to person and place. Patient is currently at [facility] for rehab for recent left femur fracture. No reported fevers. No reported vomiting or diarrhea. ROS: as above PHYSICAL EXAM: Constitutional: Patient appears in no acute distress. Morbidly obese. HENT: Head: Normocephalic and atraumatic. Eyes: EOMI, PERRL Mouth/Throat: Mucous membranes moist. Neck: Trachea midline. Neck supple. Cardiovascular: RRR, No murmurs, rubs or gallops. Intact distal pulses. Pulmonary/Chest: No respiratory distress. Breath sounds clear and equal bilaterally. No wheezes or rales. Abdominal: Abdomen soft, no tenderness, rebound or guarding. Musculoskeletal: No edema, tenderness or deformity noted. Full knee extension brace on the left lower extremity Skin: Warm and dry. No rash, erythema, pallor or cyanosis Neurological: Alert but does not answer questions. CN II-XII grossly intact, moving all extremities equally and fully. MDM: - Vitals signs stable. Fingerstick blood glucose 170. - History obtained via EMS and family member, given patient's confusion. Patient presents with altered mental status and episode of unresponsiveness. Patient reportedly had an episode of unresponsiveness at 1830 today. Reports the patient seemed very out of it and was not responding to verbal or physical stimuli. No reported seizure-like activity. Patient has been significantly altered ever since. She is normally alert and oriented to person and place. - Chronic conditions affecting care: CAD; Charcot-Rashmi Tooth disease; CHF; DM- 2; HLD; HTN; hypothyroidism; GONZALEZ - Differential diagnoses include, but are not limited to: CVA; intracranial hemorrhage; ACS; pneumonia; UTI; seizure; electrolyte abnormality - Order placed for continuous cardiac monitoring. At this time, monitor showed rate of 85 bpm with normal sinus rhythm, per my interpretation. - External medical records reviewed. [facility] medical documentation has been reviewed. Patient is on scheduled narcotic pain medications at the facility - EKG reviewed by myself showed normal sinus rhythm. Rate 85 bpm. QTc 435. No acute ischemic changes - Laboratory workup interpreted by myself showed normal WBC; chronic anemia (Hgb 9.7); normal lactate; hyponatremia (Na 130); hypocalcemia (Ca 8.4); elevated troponin (25.7); elevated total bilirubin (1.7); normal procalcitonin- - CT head wo contrast negative for acute intracranial pathology - UA from [facility] showed WBC and trace leukocyte esterase. However, no bacteria and sample from [facility]. - VBG shows slight acidosis (pH 7.35) - CXR negative for pneumonia, per my interpretation. Patient is noted to have chronic elevation of her right hemidiaphragm, as seen on previous chest x-ray from 02/04/2023 - Blood cultures obtained. - During her stay in the emergency department, the patient did start to respond to questions and answer questions appropriately. She is amnestic to the events of the evening. - Discussion was had with nephrology social worker about patient's case and need for admission - Hospitalist, Dr. Heller, consulted for admission. - [facility] ASSESSMENT AND PLAN: Diagnosis: acute encephalopathy; NSTEMI; hyponatremia; hypocalcemia Plan: admit Past Med/Surg History Medical History Anxiety Bipolar disorder CAD (coronary artery disease) History of multiple PCI's to the RCA with subsequent CABG x1 in 2010 x 1 vessel Most recent cardiac testing-negative DSE in December 2017 Follows w/ Dr. Blackwell and Dr. Lucas Cardiac arrest pt states she was told she went into cardiac arrest during her hip surgery in 02/2022 at [facility] and was "revived". no other details were given. Bjhjlvr-Hznfc-Ukfhj disease follows w/ Dr. Lemus LEG WEAKNESS CURRENT PT/OT FOR - BRACES B/L LEGS Chronic diastolic CHF (congestive heart failure) Chronic low back pain Chronic pain syndrome Cough started about 8 months ago s/p covid-19 virus -- currently treating with augmentin PO bid and prednisone. prednisone to end 05/27/22 and abx to finish on 11/26/22 Depression DM type 2 (diabetes mellitus, type 2) IDDM Dyslipidemia Encephalopathy d/c from [facility] 09/20/19 (hepatic encephalopathy) Gastroparesis GERD (gastroesophageal reflux disease) History of anesthesia reaction REMOTE HX, SIDE EFFECTS : ANXIETY AND SEVERE N/V History of COVID-19 may or june 2021, has cough since. Hx of fall pt. fell in the bathroom at home, pt. wasn't aware of what happen but was told this by her family 02/05/2022 Hypertension Hypothyroidism Irregular heart beat follows Dr. 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 Portal hypertensive gastropathy SOB (shortness of breath) SINCE COVID -8 MON AGO, SOB, COUGH...NO DX...HAS VISIT WITH PULM UPCOMING TO EVALUATE Spondylosis Urinary incontinence UTI (urinary tract infection) FREQUENT/PREVENTATIVE ABX'S CURRENTLY MOST RECENT UTI JANUARY 04 - ABX COMPLETE - ON CURRENT PROPHYLACTIC TX Surgical History History of appendectomy History of back surgery sacral area History of cardiac cath multiple - most recent - 2 years ago @ [facility] History of cataract surgery RT History of colonoscopy History of esophagogastroduodenoscopy (EGD) History of heart artery stent 2 yrs ago @ [facility] > 6 or 7 stents > follows Dr. Lucas History of left hip replacement 02/05/2022 History of total right knee replacement Hx of cholecystectomy S/P CABG x 2010 - single vessel S/P CARLOS (total abdominal hysterectomy) Family History Father Coronary heart disease Brother Coronary heart disease Father No problems noted. Mother No problems noted. Other No family history of adverse response to anesthesia Social History Smoking Status: Unknown if ever smoked Tobacco Type: Cigarettes Second Hand Exposure: Yes; Do You Dip or Chew Tobacco: No; Hx Alcohol Use: No Hx Substance Use: No Preferred Language: Ecuadorean Communication Ability: Effective Top Lift Trimmer Required: No Beliefs That Will Affect Care: None marital status: / Current Living Situation: Alone How many Children do You have: 0 Feels Safe at Home: Yes Assistive Devices: Bedside Commode, Brace/Splint/Immobilizer, Lift Chair, Walker and Wheelchair Allergies Allergies Allergy/AdvReac Type Severity Reaction Status Date / Time propoxyphene Allergy Intermediate Rash Verified 02/01/23 16:28 fentanyl AdvReac Intermediate PANIC Verified 02/01/23 16:28 WANTS TO RUN AND AGGRESSIVE methocarbamol AdvReac Intermediate DELERIUM Verified 02/01/23 16:28 zolpidem AdvReac Intermediate confusion Verified 02/01/23 16:28 Home Meds Home Medications Medication Instructions Recorded Confirmed acetaminophen 325 mg tablet 650 mg PO Q4 PRN Pain (Scale Score 02/19/22 02/01/23 (Tylenol) 1-3) albuterol sulfate 90 mcg/actuation 2 puff inhalation QID PRN Wheezing 02/19/22 02/01/23 aerosol inhaler aripiprazole 2 mg tablet 2 mg PO QAM 02/19/22 02/01/23 ascorbic acid (vitamin C) 500 mg 500 mg PO BID 02/19/22 02/01/23 tablet (Vitamin C) aspirin 81 mg tablet,delayed 81 mg PO QAM 02/19/22 02/01/23 release atorvastatin 40 mg tablet 40 mg PO QAM 02/19/22 02/01/23 dicyclomine 20 mg tablet 10 mg PO QID PRN ABD PAIN 02/19/22 02/01/23 dulaglutide 4.5 mg/0.5 mL 4.5 mg subcut WK 02/19/22 02/01/23 subcutaneous pen injector (Trulicity) ergocalciferol (vitamin D2) 1,250 1,250 mcg PO WK 02/19/22 02/01/23 mcg (50,000 unit) capsule (Vitamin D2) estradiol 0.01% (0.1 mg/gram) 1 g vaginal HS 02/19/22 02/01/23 vaginal cream (Estrace) gabapentin 300 mg capsule 300 mg PO BID 02/19/22 02/01/23 lamotrigine 100 mg tablet 100 mg PO QAM 02/19/22 02/01/23 (Lamictal) lamotrigine 25 mg tablet (Lamictal) See Rx Instructions .Route .COMPLEX 02/19/22 02/01/23 levothyroxine 88 mcg tablet 88 mcg PO QAM 02/19/22 02/01/23 metoprolol succinate 25 mg 25 mg PO QAM 02/19/22 02/01/23 tablet,extended release 24 hr montelukast 10 mg tablet 10 mg PO QAM 02/19/22 02/01/23 oxycodone 5 mg tablet 5 mg PO Q8 PRN Pain 02/19/22 02/01/23 pantoprazole 40 mg tablet,delayed 40 mg PO BID 02/19/22 02/01/23 release rifaximin 550 mg tablet (Xifaxan) 550 mg PO BID 02/19/22 02/01/23 tamsulosin 0.4 mg capsule 0.4 mg PO QAM 02/19/22 02/01/23 venlafaxine 75 mg capsule,extended 75 mg PO QAM 02/19/22 02/01/23 release 24 hr (Effexor XR) budesonide-formoterol HFA 160 2 inh inhalation BID 05/24/22 02/01/23 mcg-4.5 mcg/actuation aerosol inhaler (Symbicort) lactulose 10 gram/15 mL oral 45 g PO BID 05/24/22 02/01/23 solution torsemide 20 mg tablet 20 mg PO QAM 05/24/22 02/01/23 trazodone 50 mg tablet 50 mg PO HS 05/24/22 02/01/23 famotidine 40 mg tablet 40 mg PO DAILY 12/26/22 02/01/23 fluticasone propionate 50 2 spray intranasal DAILY PRN 12/26/22 02/01/23 mcg/actuation nasal Congestion spray,suspension ipratropium 0.5 mg-albuterol 3 mg 3 ml inhalation QID 12/26/22 02/01/23 (2.5 mg base)/3 mL nebulization soln methenamine hippurate 1 gram tablet 1 g PO BID 12/26/22 02/01/23 morphine 15 mg tablet,extended 15 mg PO HS PRN Severe Pain (Scale 12/26/22 02/01/23 release Score 7-10) nitroglycerin 0.4 mg sublingual 0.4 mg sublingual DIRECTED PRN 12/26/22 02/01/23 tablet (Nitrostat) Chest Pain ondansetron HCl 8 mg tablet 8 mg PO Q8H PRN NAUSEA/VOMITING 12/26/22 02/01/23 potassium chloride 20 mEq 20 meq PO DAILY 12/26/22 02/01/23 tablet,extended release(part/cryst) (Klor-Con M) spironolactone 50 mg tablet 50 mg PO BID 12/26/22 02/01/23 sucralfate 1 gram tablet 1 g PO QAM 12/26/22 02/01/23 tiotropium bromide 2.5 2 inh inhalation QAM 12/26/22 02/01/23 mcg/actuation mist for inhalation (Spiriva Respimat) venlafaxine 150 mg 150 mg PO QAM 12/26/22 02/01/23 capsule,extended release 24 hr diclofenac sodium 1 % topical gel 2 g topical BID PRN Pain 02/01/23 02/01/23 nystatin 100,000 unit/gram topical 1 applic topical TID 02/01/23 02/01/23 powder ([facility]) nystatin 100,000 unit/mL oral 5 ml mucous membrane QID 02/01/23 02/01/23 suspension oxybutynin chloride 10 mg 10 mg PO QAM 02/01/23 02/01/23 tablet,extended release 24 hr Previous Rx's Medication Instructions Recorded aspirin 81 mg tablet,delayed 81 mg PO BID 40 days #80 tabs 02/06/23 release clonazepam 0.5 mg tablet 0.25 mg PO TID #1 tab 02/06/23 insulin glargine 100 unit/mL (3 20 unit (0.2 mL) subcut BID #15 mL 02/06/23 mL) subcutaneous pen (Basaglar KwikPen U-100 Insulin) Results & Data (ED) Vital Signs Vital Signs - 24 hr 02/07/23 19:48 02/07/23 19:48 02/07/23 20:11 Temperature 36.9 C Temperature Source Oral Pulse Rate 89 Pulse Rate from SpO2 Sensor Pulse Rhythm Regular Respiratory Rate 16 Respiratory Effort / Characteristics Respiratory Depth Normal Normal Blood Pressure 146/86 H Blood Pressure Mean 106 Pulse Oximetry 98 Oxygen Delivery Method Room Air Room Air Sepsis Recent Fever Within 48 Hours No Sepsis New/Unexplained Change in Mental Status N/A Sepsis Action Taken by Nursing No Action Required 02/07/23 20:11 02/07/23 20:11 02/07/23 20:26 Temperature Temperature Source Pulse Rate Pulse Rate from SpO2 Sensor Pulse Rhythm Regular Respiratory Rate Respiratory Effort / Characteristics Respiratory Depth Normal Normal Blood Pressure Blood Pressure Mean Pulse Oximetry Oxygen Delivery Method Room Air Sepsis Recent Fever Within 48 Hours Sepsis New/Unexplained Change in Mental Status Sepsis Action Taken by Nursing 02/07/23 20:41 02/07/23 20:56 02/07/23 20:30 Temperature Temperature Source Pulse Rate 86 Pulse Rate from SpO2 Sensor 84 Pulse Rhythm Respiratory Rate 19 Respiratory Effort / Characteristics Non-Labored Respiratory Depth Normal Blood Pressure 127/68 Blood Pressure Mean 87 Pulse Oximetry 94 Oxygen Delivery Method Sepsis Recent Fever Within 48 Hours Sepsis New/Unexplained Change in Mental Status Sepsis Action Taken by Nursing 02/07/23 21:00 02/07/23 20:30 02/07/23 22:00 Temperature Temperature Source Pulse Rate 85 83 Pulse Rate from SpO2 Sensor 86 Pulse Rhythm Respiratory Rate 24 Respiratory Effort / Characteristics Respiratory Depth Normal Blood Pressure Blood Pressure Mean Pulse Oximetry 98 Oxygen Delivery Method Sepsis Recent Fever Within 48 Hours Sepsis New/Unexplained Change in Mental Status Sepsis Action Taken by Nursing 02/07/23 21:30 02/07/23 22:00 Temperature Temperature Source Pulse Rate 86 88 Pulse Rate from SpO2 Sensor 85 Pulse Rhythm Respiratory Rate 21 22 Respiratory Effort / Characteristics Respiratory Depth Blood Pressure 127/68 Blood Pressure Mean 87 Pulse Oximetry 95 95 Oxygen Delivery Method Sepsis Recent Fever Within 48 Hours Sepsis New/Unexplained Change in Mental Status Sepsis Action Taken by Nursing Laboratory Data 02/07/23 20:01 02/07/23 20:01 Lab Results 02/07/23 02/07/23 02/07/23 Range/Units 20:01 20:01 20:01 WBC 7.43 (4.8-10.8) K/ul RBC 3.62 L (4.20-5.40) M/uL Hgb 9.7 L (12.0-16.0) g/dl POC Hgb (12.0-16.0) g/dl Hct 30.0 L (37.0-47.0) % POC Hct (37-47) % MCV 82.9 (80.0-100.0) fL MCH 26.8 (25.0-34.0) pg MCHC 32.3 (32.0-36.0) g/dL RDW Std Deviation 55.8 H (36.4-46.3) fL RDW Coeff of Guillermo 19.1 H (11.5-14.5) % Plt Count 160 (130-400) K/uL MPV 10.3 (9.4-12.4) fL Immature Gran % (Auto) 4.8 % Neut % (Auto) 64.9 % Lymph % (Auto) 14.3 % [place] % (Auto) 11.7 % Eos % (Auto) 3.6 % Baso % (Auto) 0.7 % Neut # (Auto) 4.82 (1.40-6.50) K/uL Lymph # (Auto) 1.06 L (1.2-3.4) K/uL [place] # (Auto) 0.87 H (0.11-0.59) K/uL Eos # (Auto) 0.27 (0-0.50) K/uL Baso # (Auto) 0.05 (0-0.2) K/uL Immature Gran # (Auto) 0.36 H (0.01-0.20) K/uL Absolute Nucleated RBC 0.03 (0-0.12) K/uL Nucleated RBC % (auto) 0.4 % VBG pH (7.36-7.41) VBG pCO2 (38-50) mmHg VBG pO2 mmHg VBG HCO3 mmol/L VBG O2 Saturation % VBG Base Excess mEq/L POC Sodium (135-144) mmol/L Sodium 130 L (136-145) mmol/L POC Potassium (3.3-5.0) mmol/L Potassium 3.7 (3.5-5.1) mmol/L POC Chloride (101-112) mmol/L Chloride 98 (98-107) mmol/L Carbon Dioxide 25 (21-32) mmol/L POC Total CO2 (24-31) mmol/L Anion Gap 7 (3-11) POC Anion Gap (16-25) mmol/L POC BUN (7-18) mg/dl BUN 12 (6-23) mg/dl Creatinine 0.86 (0.6-1.2) mg/dl POC Creatinine (0.6-1.3) mg/dl Est Cr Clr Drug Dosing 82.9 ml/min Est GFR ( Amer) 77.7 ml/min Est GFR (Non-Af Amer) 67.0 ml/min BUN/Creatinine Ratio 14.0 (10-20) Glucose 177 H (70-99(Fasting)) mg/dl POC Glucose (70-99) mg/dl POC Glucose (other) (70-99) mg/dl Lactate (0.4-2.0) mmol/L Calcium 8.4 L (8.6-10.3) mg/dl POC Ioniz Calcium Jonathan (1.12-1.32) mmol/l Magnesium 1.8 (1.7-2.4) mg/dl Total Bilirubin 1.7 H (0.2-1.0) mg/dl Direct Bilirubin 0.6 H (0-0.2) mg/dl AST 35 (13-39) U/L ALT 12 (7-52) U/L Alkaline Phosphatase 133 H (34-104) U/L Troponin I High Sens 25.7 H (0-14) pg/ml Total Protein 6.0 (6.0-8.3) gm/dl Albumin 3.0 L (3.4-5.0) gm/dl Procalcitonin 0.16 (0-0.5) ng/ml Urine Color Urine Appearance (Clear) Urine pH (4.5-7.5) Ur Specific [place] (1.000-1.030) Urine Protein (Negative) Urine Glucose (UA) (Negative) Urine Ketones (Negative) Urine Blood (Negative) Urine Nitrite (Negative) Urine Bilirubin (Negative) Urine Urobilinogen (Negative) Ur Leukocyte Esterase (Negative) Urine WBC (Auto) (0-5) /hpf Urine RBC (Auto) (0-4) /hpf U Hyaline Cast (Auto) (0-5) /lpf U Epithel Cells (Auto) (0-5) /lpf Urine Bacteria (Auto) (Negative) 02/07/23 02/07/23 02/07/23 Range/Units 20:02 20:07 20:16 WBC (4.8-10.8) K/ul RBC (4.20-5.40) M/uL Hgb (12.0-16.0) g/dl POC Hgb 9.5 L (12.0-16.0) g/dl Hct (37.0-47.0) % POC Hct 28 L (37-47) % MCV (80.0-100.0) fL MCH (25.0-34.0) pg MCHC (32.0-36.0) g/dL RDW Std Deviation (36.4-46.3) fL RDW Coeff of Guillermo (11.5-14.5) % Plt Count (130-400) K/uL MPV (9.4-12.4) fL Immature Gran % (Auto) % Neut % (Auto) % Lymph % (Auto) % [place] % (Auto) % Eos % (Auto) % Baso % (Auto) % Neut # (Auto) (1.40-6.50) K/uL Lymph # (Auto) (1.2-3.4) K/uL [place] # (Auto) (0.11-0.59) K/uL Eos # (Auto) (0-0.50) K/uL Baso # (Auto) (0-0.2) K/uL Immature Gran # (Auto) (0.01-0.20) K/uL Absolute Nucleated RBC (0-0.12) K/uL Nucleated RBC % (auto) % VBG pH (7.36-7.41) VBG pCO2 (38-50) mmHg VBG pO2 mmHg VBG HCO3 mmol/L VBG O2 Saturation % VBG Base Excess mEq/L POC Sodium 131 L (135-144) mmol/L Sodium (136-145) mmol/L POC Potassium 3.8 (3.3-5.0) mmol/L Potassium (3.5-5.1) mmol/L POC Chloride 96 L (101-112) mmol/L Chloride (98-107) mmol/L Carbon Dioxide (21-32) mmol/L POC Total CO2 23 L (24-31) mmol/L Anion Gap (3-11) POC Anion Gap 17.0 (16-25) mmol/L POC BUN 10 (7-18) mg/dl BUN (6-23) mg/dl Creatinine (0.6-1.2) mg/dl POC Creatinine 1.0 (0.6-1.3) mg/dl Est Cr Clr Drug Dosing ml/min Est GFR ( Amer) ml/min Est GFR (Non-Af Amer) ml/min BUN/Creatinine Ratio (10-20) Glucose (70-99(Fasting)) mg/dl POC Glucose 188 H (70-99) mg/dl POC Glucose (other) 183 H (70-99) mg/dl Lactate (0.4-2.0) mmol/L Calcium (8.6-10.3) mg/dl POC Ioniz Calcium Jonathan 1.15 (1.12-1.32) mmol/l Magnesium (1.7-2.4) mg/dl Total Bilirubin (0.2-1.0) mg/dl Direct Bilirubin (0-0.2) mg/dl AST (13-39) U/L ALT (7-52) U/L Alkaline Phosphatase (34-104) U/L Troponin I High Sens (0-14) pg/ml Total Protein (6.0-8.3) gm/dl Albumin (3.4-5.0) gm/dl Procalcitonin (0-0.5) ng/ml Urine Color Dark Yellow Urine Appearance Clear (Clear) Urine pH 6.0 (4.5-7.5) Ur Specific [place] 1.014 (1.000-1.030) Urine Protein Negative (Negative) Urine Glucose (UA) Trace H (Negative) Urine Ketones Negative (Negative) Urine Blood Trace H (Negative) Urine Nitrite Negative (Negative) Urine Bilirubin Negative (Negative) Urine Urobilinogen Negative (Negative) Ur Leukocyte Esterase 1+ H (Negative) Urine WBC (Auto) 5-10 H (0-5) /hpf Urine RBC (Auto) 5-10 H (0-4) /hpf U Hyaline Cast (Auto) 1-5 (0-5) /lpf U Epithel Cells (Auto) >30 H (0-5) /lpf Urine Bacteria (Auto) Negative (Negative) 02/07/23 02/07/23 Range/Units 20:35 20:52 WBC (4.8-10.8) K/ul RBC (4.20-5.40) M/uL Hgb (12.0-16.0) g/dl POC Hgb (12.0-16.0) g/dl Hct (37.0-47.0) % POC Hct (37-47) % MCV (80.0-100.0) fL MCH (25.0-34.0) pg MCHC (32.0-36.0) g/dL RDW Std Deviation (36.4-46.3) fL RDW Coeff of Guillermo (11.5-14.5) % Plt Count (130-400) K/uL MPV (9.4-12.4) fL Immature Gran % (Auto) % Neut % (Auto) % Lymph % (Auto) % [place] % (Auto) % Eos % (Auto) % Baso % (Auto) % Neut # (Auto) (1.40-6.50) K/uL Lymph # (Auto) (1.2-3.4) K/uL [place] # (Auto) (0.11-0.59) K/uL Eos # (Auto) (0-0.50) K/uL Baso # (Auto) (0-0.2) K/uL Immature Gran # (Auto) (0.01-0.20) K/uL Absolute Nucleated RBC (0-0.12) K/uL Nucleated RBC % (auto) % VBG pH 7.35 L (7.36-7.41) VBG pCO2 45 (38-50) mmHg VBG pO2 33 mmHg VBG HCO3 25 mmol/L VBG O2 Saturation < 60.0 % VBG Base Excess -1.1 mEq/L POC Sodium (135-144) mmol/L Sodium (136-145) mmol/L POC Potassium (3.3-5.0) mmol/L Potassium (3.5-5.1) mmol/L POC Chloride (101-112) mmol/L Chloride (98-107) mmol/L Carbon Dioxide (21-32) mmol/L POC Total CO2 (24-31) mmol/L Anion Gap (3-11) POC Anion Gap (16-25) mmol/L POC BUN (7-18) mg/dl BUN (6-23) mg/dl Creatinine (0.6-1.2) mg/dl POC Creatinine (0.6-1.3) mg/dl Est Cr Clr Drug Dosing ml/min Est GFR ( Amer) ml/min Est GFR (Non-Af Amer) ml/min BUN/Creatinine Ratio (10-20) Glucose (70-99(Fasting)) mg/dl POC Glucose (70-99) mg/dl POC Glucose (other) (70-99) mg/dl Lactate 1.6 (0.4-2.0) mmol/L Calcium (8.6-10.3) mg/dl POC Ioniz Calcium Jonathan (1.12-1.32) mmol/l Magnesium (1.7-2.4) mg/dl Total Bilirubin (0.2-1.0) mg/dl Direct Bilirubin (0-0.2) mg/dl AST (13-39) U/L ALT (7-52) U/L Alkaline Phosphatase (34-104) U/L Troponin I High Sens (0-14) pg/ml Total Protein (6.0-8.3) gm/dl Albumin (3.4-5.0) gm/dl Procalcitonin (0-0.5) ng/ml Urine Color Urine Appearance (Clear) Urine pH (4.5-7.5) Ur Specific [place] (1.000-1.030) Urine Protein (Negative) Urine Glucose (UA) (Negative) Urine Ketones (Negative) Urine Blood (Negative) Urine Nitrite (Negative) Urine Bilirubin (Negative) Urine Urobilinogen (Negative) Ur Leukocyte Esterase (Negative) Urine WBC (Auto) (0-5) /hpf Urine RBC (Auto) (0-4) /hpf U Hyaline Cast (Auto) (0-5) /lpf U Epithel Cells (Auto) (0-5) /lpf Urine Bacteria (Auto) (Negative) Imaging Data Radiologist's Impression: Head CT 02/07/23 20:11 Exam(s): CT HEAD Without Contrast EXAM: CT Head Without Intravenous Contrast CLINICAL HISTORY: Reason for exam: confusion. TECHNIQUE: Axial computed tomography images of the head/brain without intravenous contrast. Automated exposure control was utilized for the study. A dose lowering technique was utilized adhering to the principles of ALARA. Mild motion artifact. COMPARISON: Head CT 08/17/12. FINDINGS: Brain: No mass effect or acute infarct. No acute hemorrhage. Mild progressive atrophy and chronic white matter disease, as expected. Ventricles: No hydrocephalus or midline shift. Bones/joints: No skull fracture. Soft tissues: No scalp hematoma. Sinuses: Clear. Mastoid air cells: No mastoid effusion. IMPRESSION: 1. Mild age-related findings. 2. No acute infarct, bleed, or acute intracranial abnormality. Electronically signed by: Margi Varghese M.D. 02/07/23 21:16 PM Discharge Plan Visit Data Chief Complaint: Confusion Stated Complaint: ALTERED MENTAL STATUS ED Provider: Erinn Sin Discharge Problem: Encephalopathy, Non-ST elevation [place] (NSTEMI), Acute hyponatremia, Hypocalcemia Forms Stand Alone Forms: My [facility] Prescriptions Prescriptions: No Action atorvastatin 40 mg Tablet 40 mg PO QAM acetaminophen [Tylenol] 325 mg Tablet 650 mg PO Q4 PRN (Reason: Pain (Scale Score 1-3)) lamotrigine [Lamictal] 25 mg tablet See Rx Instructions .ROUTE .COMPLEX Rx Instructions: TOTAL DOSE 125 MG QAM--TAKES WITH 100 MG TAB, THEN TAKES 2-25 MG TABS FOR 50 MG QPM. levothyroxine 88 mcg tablet 88 mcg PO QAM tamsulosin 0.4 mg Capsule 0.4 mg PO QAM dicyclomine 20 mg Tablet 10 mg PO QID PRN (Reason: ABD PAIN) pantoprazole 40 mg Tablet,Delayed Release (Dr/Ec) 40 mg PO BID gabapentin 300 mg capsule 300 mg PO BID montelukast 10 mg Tablet 10 mg PO QAM metoprolol succinate 25 mg Tablet Extended Release 24 Hr 25 mg PO QAM ergocalciferol (vitamin D2) [Vitamin D2] 1,250 mcg (50,000 unit) Capsule 1,250 mcg PO WK Rx Instructions: THURSDAYS lamotrigine [Lamictal] 100 mg Tablet 100 mg PO QAM Rx Instructions: TOTAL DOSE 125 MG--TAKES WITH 25 MG TAB. oxycodone 5 mg tablet 5 mg PO Q8 PRN (Reason: Pain) Xifaxan 550 mg Tablet 550 mg PO BID Trulicity 4.5 mg/0.5 mL pen injector 4.5 mg SUBCUT WK Rx Instructions: MONDAYS venlafaxine [Effexor XR] 75 mg capsule,extended release 24hr 75 mg PO QAM Rx Instructions: TOTAL DOSE 225 MG--TAKES WITH 150 MG CAP. FILLED 11/23/22 FOR 90 DAYS aspirin 81 mg Tablet,Delayed Release (Dr/Ec) 81 mg PO QAM ascorbic acid (vitamin C) [Vitamin C] 500 mg Tablet 500 mg PO BID estradiol [Estrace] 0.01 % (0.1 mg/gram) Cream 1 g VAGINAL HS albuterol sulfate 90 mcg/actuation Hfa Aerosol Inhaler 2 puff INHALATION QID PRN (Reason: Wheezing) aripiprazole 2 mg Tablet 2 mg PO QAM ipratropium-albuterol 0.5 mg-3 mg(2.5 mg base)/3 mL Solution For Nebulization 3 ml INHALATION QID ondansetron HCl 8 mg Tablet 8 mg PO Q8H PRN (Reason: NAUSEA/VOMITING) sucralfate 1 gram tablet 1 g PO QAM famotidine 40 mg Tablet 40 mg PO DAILY venlafaxine 150 mg capsule,extended release 24hr 150 mg PO QAM Rx Instructions: TOTAL DOSE 225 MG--TAKES WITH 75 MG CAP. LAST FILLED 11/23/22 FOR 90 DAYS. methenamine hippurate 1 gram tablet 1 g PO BID potassium chloride [Klor-Con M20] 20 mEq tablet,ER particles/crystals 20 meq PO DAILY nitroglycerin [Nitrostat] 0.4 mg Tablet, Sublingual 0.4 mg sublingual DIRECTED PRN (Reason: Chest Pain) morphine 15 mg tablet extended release 15 mg PO HS PRN (Reason: Severe Pain (Scale Score 7-10)) fluticasone propionate 50 mcg/actuation Parnell,Suspension 2 spray INTRANASAL DAILY PRN (Reason: Congestion) Rx Instructions: administer into each nostril spironolactone 50 mg tablet 50 mg PO BID Spiriva Respimat 2.5 mcg/actuation Mist 2 inh INHALATION QAM nystatin 100,000 unit/mL suspension 5 ml mucous membrane QID Rx Instructions: STARTED 01/28/23 FOR 12 DAYS oxybutynin chloride 10 mg tablet extended release 24hr 10 mg PO QAM nystatin [Nyamyc] 100,000 unit/gram powder 1 applic TOPICAL TID Rx Instructions: STARTED 01/15/23 FOR 10 DAYS diclofenac sodium 1 % Gel 2 g TOPICAL BID PRN (Reason: Pain) aspirin 81 mg Tablet,Delayed Release (Dr/Ec) 81 mg PO BID 40 Days Qty: 80 0RF clonazepam 0.5 mg Tablet 0.25 mg PO TID Qty: 1 0RF insulin glargine [Basaglar KwikPen U-100 Insulin] 100 unit/mL (3 mL) insulin pen 20 unit SUBCUT BID Qty: 15 0RF torsemide 20 mg Tablet 20 mg PO QAM Rx Instructions: MAY TAKE 1 ADDITIONAL TABLET NEEDED FOR SWELLING trazodone 50 mg Tablet 50 mg PO HS lactulose 10 gram/15 mL Solution 45 g PO BID budesonide-formoterol [Symbicort] 160-4.5 mcg/actuation Hfa Aerosol Inhaler 2 inh INHALATION BID Referrals Referrals: Brian Domínguez MD [Primary Care Provider] -
[2023-02-07 20:28] LABS: iSTAT Hemoglobin 9.5 g/dl (12.0-16.0); iSTAT Ionized Calcium 1.15 mmol/l (1.12-1.32); iSTAT Potassium 3.8 mmol/L (3.3-5.0)
[2023-02-07 21:05] LABS: Base Excess VBG -1.1 mEq/L; HCO3 VBG 25 mmol/L; Oxygen Saturation VBG < 60.0 %; PCO2 VBG 45 mmHg (38-50); PO2 VBG 33 mmHg; pH VBG 7.35 (7.36-7.41)
[2023-02-07 21:10] LABS: Appearance Urine Clear (Clear); Bacteria Urine Automated Negative (Negative); Bilirubin Urine Negative (Negative); Blood Urine Trace (Negative); Color Urine Dark Yellow; Epithelial Cell Urine Auto >30 /lpf (0-5); Glucose Urine UA Trace (Negative); Ketones Urine Negative (Negative); Leukocyte Esterase Urine 1+ (Negative); Nitrite Urine Negative (Negative); Protein Urine Negative (Negative); Specific Gravity Urine 1.014 (1.000-1.030); Urobilinogen Urine Negative (Negative)
[2023-02-07 21:16] LABS: Bilirubin Direct 0.6 mg/dl (0-0.2); Bilirubin,Total 1.7 mg/dl (0.2-1.0); Calcium 8.4 mg/dl (8.6-10.3); Creatinine Clr Calc Pharmacy 82.9 ml/min; Est GFR (African American) 77.7 ml/min; Magnesium 1.8 mg/dl (1.7-2.4); Potassium 3.7 mmol/L (3.5-5.1)
--- NOTE | 2023-02-07 21:17 | CT Scan Report ---
Exam(s): CT HEAD Without Contrast EXAM: CT Head Without Intravenous Contrast CLINICAL HISTORY: Reason for exam: confusion. TECHNIQUE: Axial computed tomography images of the head/brain without intravenous contrast. Automated exposure control was utilized for the study. A dose lowering technique was utilized adhering to the principles of ALARA. Mild motion artifact. COMPARISON: Head CT 08/17/12. FINDINGS: Brain: No mass effect or acute infarct. No acute hemorrhage. Mild progressive atrophy and chronic white matter disease, as expected. Ventricles: No hydrocephalus or midline shift. Bones/joints: No skull fracture. Soft tissues: No scalp hematoma. Sinuses: Clear. Mastoid air cells: No mastoid effusion. IMPRESSION: 1. Mild age-related findings. 2. No acute infarct, bleed, or acute intracranial abnormality. Electronically signed by: Margi Varghese M.D. 02/07/23 21:16 PM
[2023-02-07 21:21] LABS: Troponin I High Sensitivity 25.7 pg/ml (0-14)
[2023-02-07 21:35] LABS: Basophils # (auto) 0.05 K/uL (0-0.2); Basophils % (auto) 0.7 %; Eosinophils # (auto) 0.27 K/uL (0-0.50); Eosinophils % (auto) 3.6 %; Hemoglobin 9.7 g/dl (12.0-16.0); Immature Granulocytes # (auto) 0.36 K/uL (0.01-0.20); Immature Granulocytes % (auto) 4.8 %; Lymphocytes # (auto) 1.06 K/uL (1.2-3.4); Lymphocytes % (auto) 14.3 %; Mean Corpuscular Hemoglobin 26.8 pg (25.0-34.0); Mean Corpuscular Hgb Conc 32.3 g/dL (32.0-36.0); Mean Corpuscular Volume 82.9 fL (80.0-100.0); Mean Platelet Volume 10.3 fL (9.4-12.4); Monocytes # (auto) 0.87 K/uL (0.11-0.59); Monocytes % (auto) 11.7 %; Neutrophils # (auto) 4.82 K/uL (1.40-6.50); Neutrophils % (auto) 64.9 %; Nucleated RBC # (auto) 0.03 K/uL (0-0.12); Nucleated RBC % (auto) 0.4 %; Platelet Count 160 K/uL (130-400); RDW Coefficient of Variation 19.1 % (11.5-14.5); RDW Standard Deviation 55.8 fL (36.4-46.3); Red Blood Count 3.62 M/uL (4.20-5.40); White Blood Count 7.43 K/ul (4.8-10.8)
--- NOTE | 2023-02-07 22:41 | XRay Report ---
SINGLE VIEW CHEST CLINICAL HISTORY: Sepsis. FINDINGS: An AP, portable, upright chest radiograph is compared to study dated 02/04/2023. The examinat ion is degraded by portable technique and apical lordotic positioning. The patient is status post mid line sternotomy. The cardiomediastinal silhouette is unremarkable noting atherosclerotic calcificatio n of the thoracic aorta. Chronic interstitial thickening similar to previous. There is chronic elevat ion of the right hemidiaphragm with associated atelectasis. No airspace consolidation or large pleura l effusion is identified. No pneumothorax is seen. The skeletal structures are osteopenic. The bony t horax is grossly intact. Degenerative change is noted in the shoulders and spine. Cholecystectomy cli ps are noted in the right upper quadrant. IMPRESSION: No active disease in the chest. ACT 112: Negative or not required by law. Electronically signed by: Berto Snow M.D. 02/07/2023 10:40 PM
--- NOTE | 2023-02-07 23:26 | History & Physical Report ---
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 Encephalopathy CT head okay, abg and ammonia levels and lactic acid levels ok, cr ok. Possible UTI recent imaging studies no ascites Possible from narcotics pain medications as patient recently had left femur surgery Hold narcotic pain medications and klonopin and trazadone Empiric IV Rocephin and follow the cultures Close monitoring telemetry floor History of [place] cirrhosis We will monitor for volume overload We will continue torsemide, spironolactone, rifaximin, lactulose follow labs. History of CAD s/p CABG Moderate AAS Continue statin and aspirin Questionable reactive airway disease Continue home inhalers Type 2 diabetes Gastroparesis Neuropathy on gabapentin We will hold trulicity Lantus and sliding scale we will follow blood sugars Anxiety Depression Bipolar disorder Continue home medications Hypothyroidism Synthyroid Chronic back pain We will hold pain medications for now Hyponatremia Na 130 will follow labs. 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 When patient came to the ER she was just daily not talking but later she was able to converse. CT head is okay. UA slightly positive. Ammonia is pending. Currently patient is alert and awake and oriented x3 able to give history but answering very slowly and takes time to understand the questions. Denies any headache. No earache. Vision is okay. Has some runny nose and sore throat. Has some cough. Denies chest pain or shortness of breath. No nausea. Has some abdominal pain. States he moved bowels twice today. And micturating fine. Hemodynamics are okay. Allergies Allergy/AdvReac Type Severity Reaction Status Date / Time propoxyphene Allergy Intermediate Rash Verified 02/07/23 23:43 fentanyl AdvReac Intermediate PANIC Verified 02/07/23 23:43 WANTS TO RUN AND AGGRESSIVE methocarbamol AdvReac Intermediate DELERIUM Verified 02/07/23 23:43 zolpidem AdvReac Intermediate confusion Verified 02/07/23 23:43 Home Medications Medication Instructions Recorded Confirmed Type acetaminophen 500 mg tablet 500 mg PO Q4 02/07/23 02/07/23 History (Tylenol Extra Strength) albuterol sulfate 90 mcg/actuation 2 inh inhalation Q6 PRN Shortness 02/07/23 02/07/23 History aerosol inhaler Of Breath Or Wheezing aripiprazole 2 mg tablet 2 mg PO DAILY 02/07/23 02/07/23 History aspirin 81 mg tablet,delayed 81 mg PO DAILY 02/07/23 02/07/23 History release atorvastatin 40 mg tablet 40 mg PO DAILY 02/07/23 02/07/23 History clonazepam 0.5 mg tablet 0.25 mg PO Q8 02/07/23 02/07/23 History dicyclomine 20 mg tablet 10 mg PO QID PRN .Irritable bowel 02/07/23 02/07/23 History docusate sodium 100 mg capsule 100 mg PO BID 02/07/23 02/07/23 History dulaglutide 4.5 mg/0.5 mL 4.5 mg subcut .Q MON 02/07/23 02/07/23 History subcutaneous pen injector (Trulicity) ergocalciferol (vitamin D2) 1,250 1,250 mcg PO .Q THUR 02/07/23 02/07/23 History mcg (50,000 unit) capsule (Vitamin D2) famotidine 20 mg tablet 40 mg PO DAILY 02/07/23 02/07/23 History fluticasone fur. 100 mcg-umeclid 1 inh inhalation DAILY 02/07/23 02/07/23 History 62.5 mcg-vilant 25 mcg inhalat.powder (Trelegy Ellipta) fluticasone propionate 50 2 spray intranasal DAILY 02/07/23 02/07/23 History mcg/actuation nasal spray,suspension (Flonase Allergy Relief) gabapentin 300 mg capsule 300 mg PO Q12 02/07/23 02/07/23 History insulin glargine 100 unit/mL 20 unit subcut Q12 02/07/23 02/07/23 History subcutaneous solution (Lantus U-100 Insulin) insulin regular human 100 unit/mL 1 sliding scale dose subcut 02/07/23 02/07/23 History injection solution (Humulin R USEASDIRECTD Regular U-100 Insulin) lactulose 20 gram/30 mL oral 30 g PO TID 02/07/23 02/07/23 History solution lamotrigine 100 mg tablet 100 mg PO DAILY 02/07/23 02/07/23 History (Lamictal) lamotrigine 25 mg tablet (Lamictal) 25 mg PO DAILY 02/07/23 02/07/23 History lamotrigine 25 mg tablet (Lamictal) 50 mg PO QPM 02/07/23 02/07/23 History levothyroxine 88 mcg tablet 88 mcg PO QAM 02/07/23 02/07/23 History methenamine hippurate 1 gram tablet 1 g PO BID 02/07/23 02/07/23 History metoprolol succinate 25 mg 25 mg PO DAILY 02/07/23 02/07/23 History tablet,extended release 24 hr montelukast 10 mg tablet 10 mg PO DAILY 02/07/23 02/07/23 History morphine 15 mg tablet,extended 15 mg PO HS PRN Pain 02/07/23 02/07/23 History release nitroglycerin 0.4 mg sublingual 0.4 mg sublingual DIRECTED 02/07/23 02/07/23 History tablet (Nitrostat) nystatin 100,000 unit/mL oral 5 ml PO DIRECTED 02/07/23 02/07/23 History suspension ondansetron HCl 4 mg tablet 4 mg PO Q4 PRN Nausea 02/07/23 02/07/23 History oxybutynin chloride 5 mg 5 mg PO DAILY 02/07/23 02/07/23 History tablet,extended release 24 hr oxycodone 5 mg tablet 5 mg PO Q8 PRN PAIN 4-6 02/07/23 02/07/23 History pantoprazole 40 mg tablet,delayed 40 mg PO BID 02/07/23 02/07/23 History release polyethylene glycol 3350 17 gram 17 g PO DAILY PRN Constipation 02/07/23 02/07/23 History oral powder packet (Miralax) potassium chloride 20 mEq 20 meq PO DAILY 02/07/23 02/07/23 History tablet,extended release(part/cryst) (Klor-Con M) rifaximin 550 mg tablet (Xifaxan) 550 mg PO Q12 02/07/23 02/07/23 History sennosides 8.6 mg-docusate sodium 1 tab-cap PO .QLUNCH PRN 02/07/23 02/07/23 History 50 mg tablet (Senokot-S) Constipation spironolactone 25 mg tablet 50 mg PO BID 02/07/23 02/07/23 History sucralfate 1 gram tablet 1 g PO DAILY 02/07/23 02/07/23 History tamsulosin 0.4 mg capsule 0.4 mg PO DAILY 02/07/23 02/07/23 History torsemide 20 mg tablet 20 mg PO DAILY 02/07/23 02/07/23 History trazodone 50 mg tablet 50 mg PO HS 02/07/23 02/07/23 History venlafaxine 150 mg 150 mg PO DAILY 02/07/23 02/07/23 History capsule,extended release 24 hr venlafaxine 75 mg tablet,extended 75 mg PO DAILY 02/07/23 02/07/23 History release 24 hr Past Med/Surg History Medical History Anxiety Bipolar disorder CAD (coronary artery disease) History of multiple PCI's to the RCA with subsequent CABG x1 in 2010 x 1 vessel Most recent cardiac testing-negative DSE in December 2017 Follows w/ Dr. Blackwell and Dr. Lucas Cardiac arrest pt states she was told she went into cardiac arrest during her hip surgery in 02/2022 at [facility] and was "revived". no other details were given. Uidqvtr-Finez-Beief disease follows w/ Dr. Mateer LEG WEAKNESS CURRENT PT/OT FOR - BRACES B/L LEGS Chronic diastolic CHF (congestive heart failure) Chronic low back pain Chronic pain syndrome Cough started about 8 months ago s/p covid-19 virus -- currently treating with augmentin PO bid and prednisone. prednisone to end 05/27/22 and abx to finish on 06/01/22 Depression DM type 2 (diabetes mellitus, type 2) IDDM Dyslipidemia Encephalopathy d/c from [facility] 09/20/19 (hepatic encephalopathy) Gastroparesis GERD (gastroesophageal reflux disease) History of anesthesia reaction REMOTE HX, SIDE EFFECTS : ANXIETY AND SEVERE N/V History of COVID-19 may or june 2021, has cough since. Hx of fall pt. fell in the bathroom at home, pt. wasn't aware of what happen but was told this by her family 02/05/2022 Hypertension Hypothyroidism Irregular heart beat follows Dr. Lucas / [facility] Left hip pain Left hip hemiarthroplasty 02/05/2022 Liver cirrhosis secondary to ESPANA Moderate aortic stenosis ESPANA (nonalcoholic steatohepatitis) Osteoarthritis Palpitations occasionally -- pt states since her metoprolol has been decreased. Portal hypertensive gastropathy SOB (shortness of breath) SINCE COVID -8 MON AGO, SOB, COUGH...NO DX...HAS VISIT WITH PULM UPCOMING TO EVALUATE Spondylosis Urinary incontinence UTI (urinary tract infection) FREQUENT/PREVENTATIVE ABX'S CURRENTLY MOST RECENT UTI JANUARY 04 - ABX COMPLETE - ON CURRENT PROPHYLACTIC TX Surgical History History of appendectomy History of back surgery sacral area History of cardiac cath multiple - most recent - 2 years ago @ [facility] History of cataract surgery RT History of colonoscopy History of esophagogastroduodenoscopy (EGD) History of heart artery stent 2 yrs ago @ [facility] > 6 or 7 stents > follows Dr. Lucas History of left hip replacement 02/05/2022 History of total right knee replacement Hx of cholecystectomy S/P CABG x 1 2010 - single vessel S/P CARLOS (total abdominal hysterectomy) Family History Father Coronary heart disease Brother Coronary heart disease Father No problems noted. Mother No problems noted. Other No family history of adverse response to anesthesia Social History Smoking Status: Never smoker Tobacco Type: Cigarettes Second Hand Exposure: Yes; Do You Dip or Chew Tobacco: No; Hx Alcohol Use: No Hx Substance Use: No Preferred Language: Arabic Communication Ability: Effective Size Marker Required: No Beliefs That Will Affect Care: None marital status: / Current Living Situation: Rehab How many Children do You have: 0 Other Information That Helps Us Care for You: No Feels Safe at Home: Yes Safety Concerns: Feels Safe At This Time Assistive Devices: Bedside Commode, Brace/Splint/Immobilizer, Lift Chair, Walker and Wheelchair Review of Systems Review of Systems: All systems reviewed & are unremarkable except as noted in Subjective Physical Exam Physical Exam: General- Not in distress. Head- atraumatic Eyes- PERRL ENT- oropharynx clear Neck- supple, no JVD. Lungs- clear to auscultation and percussion no added sounds Heart- regular rate and rhythm; no murmur, no gallop. Abdomen- normal bowel sounds, soft, mid diffuse tenderness present. Extremities- Left lower extremity in brace, pedal edema present. Neuro- alert, oriented x 3; PERRL no facial palsy; no dysarthria; slow to answer but insight ok.obeys commands Skin- warm & dry Results & Data Results & Data Vital Signs (Past 12 Hours) Vital Signs Temp Pulse Resp BP Pulse Ox O2 Del Method 02/07/23 23:00 90 18 98 Room Air 02/07/23 22:45 90 24 98 02/07/23 22:30 94 H 23 98 02/07/23 22:15 90 15 98 02/07/23 22:00 88 22 127/68 95 02/07/23 21:30 86 21 95 02/07/23 20:30 83 02/07/23 21:00 85 24 98 02/07/23 20:30 86 19 127/68 94 02/07/23 20:11 Room Air 02/07/23 20:11 Room Air 02/07/23 19:48 36.9 C 89 16 146/86 H 98 Room Air Diagnostic Findings Laboratory Results WBC 7.43 K/ul (4.8-10.8) 02/07/23 20:01 RBC 3.62 M/uL (4.20-5.40) L 02/07/23 20:01 Hgb 9.7 g/dl (12.0-16.0) L 02/07/23 20:01 POC Hgb 9.5 g/dl (12.0-16.0) L 02/07/23 20:07 Hct 30.0 % (37.0-47.0) L 02/07/23 20: POC Hct 28 % (37-47) L 02/07/23 20:07 MCV 82.9 fL (80.0-100.0) 02/07/23 20: MCH 26.8 pg (25.0-34.0) 02/07/23 20: MCHC 32.3 g/dL (32.0-36.0) 02/07/23 20: RDW Std Deviation 55.8 fL (36.4-46.3) H 02/07/23 20: RDW Coeff of Guillermo 19.1 % (11.5-14.5) H 02/07/23 20: Plt Count 160 K/uL (130-400) 02/07/23 20: MPV 10.3 fL (9.4-12.4) 02/07/23 20: Immature Gran % (Auto) 4.8 % 02/07/23 20:01 Neut % (Auto) 64.9 % 02/07/23 20:01 Lymph % (Auto) 14.3 % 02/07/23 20:01 [place] % (Auto) 11.7 % 02/07/23 20: Eos % (Auto) 3.6 % 02/07/23 20:01 Baso % (Auto) 0.7 % 02/07/23 20:01 Neut # (Auto) 4.82 K/uL (1.40-6.50) 02/07/23 20:01 Lymph # (Auto) 1.06 K/uL (1.2-3.4) L 02/07/23 20:01 [place] # (Auto) 0.87 K/uL (0.11-0.59) H 02/07/23 20:01 Eos # (Auto) 0.27 K/uL (0-0.50) 02/07/23 20:01 Baso # (Auto) 0.05 K/uL (0-0.2) 02/07/23 20:01 Immature Gran # (Auto) 0.36 K/uL (0.01-0.20) H 02/07/23 20:01 Absolute Nucleated RBC 0.03 K/uL (0-0.12) 02/07/23 20:01 Nucleated RBC % (auto) 0.4 % 02/07/23 20: VBG pH 7.35 (7.36-7.41) L 02/07/23: VBG pCO2 45 mmHg (38-50) 02/07/23: VBG pO2 33 mmHg 02/07/23: VBG HCO3 25 mmol/L 02/07/23: VBG O2 Saturation < 60.0 % 02/07/23: VBG Base Excess -1.1 mEq/L 02/07/23: POC Sodium 131 mmol/L (135-144) L 02/07/23 20:07 Sodium 130 mmol/L (136-145) L 02/07/23 20: POC Potassium 3.8 mmol/L (3.3-5.0) 02/07/23 20:07 Potassium 3.7 mmol/L (3.5-5.1) 02/07/23 20: POC Chloride 96 mmol/L (101-112) L 02/07/23 20:07 Chloride 98 mmol/L (98-107) 02/07/23 20:01 Carbon Dioxide 25 mmol/L (21-32) 02/07/23 20: POC Total CO2 23 mmol/L (24-31) L 02/07/23 20:07 Anion Gap 7 (3-11) 02/07/23 20:01 POC Anion Gap 17.0 mmol/L (16-25) 02/07/23 20:07 POC BUN 10 mg/dl (7-18) 02/07/23 20: BUN 12 mg/dl (6-23) 02/07/23 20:01 Creatinine 0.86 mg/dl (0.6-1.2) 02/07/23 20:01 POC Creatinine 1.0 mg/dl (0.6-1.3) 02/07/23 20:07 Est Cr Clr Drug Dosing 82.9 ml/min 02/07/23 20:01 Est GFR ( Amer) 77.7 ml/min 02/07/23 20:01 Est GFR (Non-Af Amer) 67.0 ml/min 02/07/23 20:01 BUN/Creatinine Ratio 14.0 (10-20) 02/07/23 20:01 Glucose 177 mg/dl (70-99(Fasting)) H 02/07/23 20:01 POC Glucose 188 mg/dl (70-99) H 02/07/23 20:02 POC Glucose (other) 183 mg/dl (70-99) H 02/07/23 20:07 Lactate 1.6 mmol/L (0.4-2.0) 02/07/23 20:35 Calcium 8.4 mg/dl (8.6-10.3) L 02/07/23 20:01 POC Ioniz Calcium Jonathan 1.15 mmol/l (1.12-1.32) 02/07/23 20:07 Magnesium 1.8 mg/dl (1.7-2.4) 02/07/23 20:01 Total Bilirubin 1.7 mg/dl (0.2-1.0) H 02/07/23 20:01 Direct Bilirubin 0.6 mg/dl (0-0.2) H 02/07/23 20:01 AST 35 U/L (13-39) 02/07/23 20:01 ALT 12 U/L (7-52) 02/07/23 20:01 Alkaline Phosphatase 133 U/L (34-104) H 02/07/23 20:01 Troponin I High Sens 25.7 pg/ml (0-14) H 02/07/23 20:01 Total Protein 6.0 gm/dl (6.0-8.3) 02/07/23 20: Albumin 3.0 gm/dl (3.4-5.0) L 02/07/23 20:01 Procalcitonin 0.16 ng/ml (0-0.5) 02/07/23 20:01 Urine Color Dark Yellow 02/07/23 20:16 Urine Appearance Clear (Clear) 02/07/23 20:16 Urine pH 6.0 (4.5-7.5) 08/04/23 20:16 Ur Specific [place] 1.014 (1.000-1.030) 02/07/23 20:16 Urine Protein Negative (Negative) 02/07/23 20:16 Urine Glucose (UA) Trace (Negative) H 02/07/23 20:16 Urine Ketones Negative (Negative) 02/07/23 20:16 Urine Blood Trace (Negative) H 02/07/23 20:16 Urine Nitrite Negative (Negative) 02/07/23 20:16 Urine Bilirubin Negative (Negative) 02/07/23 20:16 Urine Urobilinogen Negative (Negative) 02/07/23 20:16 Ur Leukocyte Esterase 1+ (Negative) H 02/07/23 20:16 Urine WBC (Auto) 5-10 /hpf (0-5) H 02/07/23 20:16 Urine RBC (Auto) 5-10 /hpf (0-4) H 02/07/23 20:16 U Hyaline Cast (Auto) 1-5 /lpf (0-5) 02/07/23 20:16 U Epithel Cells (Auto) >30 /lpf (0-5) H 02/07/23 20:16 Urine Bacteria (Auto) Negative (Negative) 02/07/23 20:16 Impressions Chest X-Ray 02/07/23 20:11 SINGLE VIEW CHEST CLINICAL HISTORY: Sepsis. FINDINGS: An AP, portable, upright chest radiograph is compared to study dated 02/04/2023. The examination is degraded by portable technique and apical lordotic positioning. The patient is status post midline sternotomy. The cardiomediastinal silhouette is unremarkable noting atherosclerotic calcification of the thoracic aorta. Chronic interstitial thickening similar to previous. There is chronic elevation of the right hemidiaphragm with associated atelectasis. No airspace consolidation or large pleural effusion is identified. No pneumothorax is seen. The skeletal structures are osteopenic. The bony thorax is grossly intact. Degenerative change is noted in the shoulders and spine. Cholecystectomy clips are noted in the right upper quadrant. IMPRESSION: No active disease in the chest. ACT 112: Negative or not required by law. Electronically signed by: Berto Snow M.D. 02/07/2023 10:[address] 02/07/23 20:11 Exam(s): CT HEAD Without Contrast EXAM: CT Head Without Intravenous Contrast CLINICAL HISTORY: Reason for exam: confusion. TECHNIQUE: Axial computed tomography images of the head/brain without intravenous contrast. Automated exposure control was utilized for the study. A dose lowering technique was utilized adhering to the principles of ALARA. Mild motion artifact. COMPARISON: Head CT 08/17/12. FINDINGS: Brain: No mass effect or acute infarct. No acute hemorrhage. Mild progressive atrophy and chronic white matter disease, as expected. Ventricles: No hydrocephalus or midline shift. Bones/joints: No skull fracture. Soft tissues: No scalp hematoma. Sinuses: Clear. Mastoid air cells: No mastoid effusion. IMPRESSION: 1. Mild age-related findings. 2. No acute infarct, bleed, or acute intracranial abnormality. Electronically signed by: Margi Varghese M.D. 02/07/23 21:16 PM ECG Additional Comments: ECG normal sinus rhythm with rate of 85. Left anterior fascicular block. No significant change Code Status & VTE Plan VTE Prophylaxis Plan VTE Prophylaxis will be ordered: Yes
[2023-02-08] MEDS ORDERED: GLUCOSE 10 TAB/TUBE PO PRN (00:37)
[2023-02-08] MEDS ORDERED: POLYETHYLENE (MIRALAX) 17 GM PACK PO PRN (00:37)
[2023-02-08] MEDS ORDERED: CARBOHYDRATES FOR HYPOGLYCEMIA PO PRN (00:37)
[2023-02-08] MEDS ORDERED: DEXTROSE 50% 50 ML SYRINGE IV PRN (00:37)
[2023-02-08] MEDS ORDERED: GLUCOSE 40% GEL 15 GM TUBE PO PRN (00:37)
[2023-02-08] MEDS ORDERED: SODIUM CHLORIDE 0.9% 1000ML 1,000 ML IV SCH (00:37)
[2023-02-08] MEDS ORDERED: GLUCAGON FOR INJ 1 MG VIAL SQ PRN (00:37)
[2023-02-08] MEDS ORDERED: NITROGLYCERIN SL 0.4 MG/TAB TAB SL PRN (00:37)
[2023-02-08] MEDS ORDERED: ALBUTEROL HFA 8 GM INHALER INH PRN (00:37)
[2023-02-08] MEDS: cefTRIAXone SODIUM 2,000 MG in DEXTROSE 5% 50 ML IV SCH ×2 (02:11→22:02)
[2023-02-08] MEDS: LEVOTHYROXINE SODIUM 88 MCG TABLET PO SCH (05:39)
[2023-02-08 06:16] LABS: Basophils # (auto) 0.03 K/uL (0-0.2); Basophils % (auto) 0.4 %; Eosinophils # (auto) 0.29 K/uL (0-0.50); Eosinophils % (auto) 3.8 %; Hematocrit (blood only) 27.5 % (37.0-47.0); Hemoglobin 8.9 g/dl (12.0-16.0); Immature Granulocytes # (auto) 0.38 K/uL (0.01-0.20); Lymphocytes # (auto) 1.33 K/uL (1.2-3.4); Lymphocytes % (auto) 17.5 %; Mean Corpuscular Hemoglobin 26.6 pg (25.0-34.0); Mean Corpuscular Hgb Conc 32.4 g/dL (32.0-36.0); Mean Corpuscular Volume 82.1 fL (80.0-100.0); Mean Platelet Volume 9.9 fL (9.4-12.4); Monocytes # (auto) 0.83 K/uL (0.11-0.59); Monocytes % (auto) 10.9 %; Neutrophils # (auto) 4.72 K/uL (1.40-6.50); Neutrophils % (auto) 62.4 %; Nucleated RBC # (auto) 0.02 K/uL (0-0.12); Nucleated RBC % (auto) 0.3 %; Platelet Count 155 K/uL (130-400); RDW Coefficient of Variation 18.6 % (11.5-14.5); RDW Standard Deviation 53.8 fL (36.4-46.3); Red Blood Count 3.35 M/uL (4.20-5.40); White Blood Count 7.58 K/ul (4.8-10.8)
[2023-02-08 06:21] LABS: BUN Creatinine Ratio 12.7 (10-20); Creatinine Clr Calc Pharmacy 88.2 ml/min; Est GFR (African American) 86.1 ml/min; Est GFR (Non-African American) 74.3 ml/min; Magnesium 1.7 mg/dl (1.7-2.4); Potassium 3.8 mmol/L (3.5-5.1)
[2023-02-08 06:27] LABS: Troponin I High Sensitivity 29.4 pg/ml (0-14)
--- NOTE | 2023-02-08 07:12 | Electrocardiogram Report ---
Test Reason : Blood Pressure : / mmHG Vent. Rate : 085 BPM Atrial Rate : 085 BPM P-R Int : 166 ms QRS Dur : 108 ms QT Int : 366 ms P-R-T Axes : 048 -51 085 degrees QTc Int : 435 ms Normal sinus rhythm Left anterior fascicular block Minimal voltage criteria for LVH, may be normal variant Poor R wave progression, consider anterior IN vs. lead placement vs. LVH Abnormal ECG When compared with ECG of 01-FEB-2023 18:53, No significant change was found Confirmed by Daniel Maharaj ([id number]) on 02/08/2023 7:12:35 AM Referred By: REFERRED SELF Confirmed By:Jarrell Maharaj
[2023-02-08] MEDS: INSULIN ASPART PER UNIT CHARGE SC SCH ×4 (08:19→21:51)
[2023-02-08] MEDS ORDERED: NON-FORMULARY MEDICATION (Fluticasone-Umeclidin-Vilanter [Trelegy Ellipta] 100-62.5-25 mcg INH SCH (09:00)
[2023-02-08] MEDS: LANTUS PER UNIT CHARGE SQ SCH ×2 (10:28→22:01)
[2023-02-08] MEDS: PANTOprazole 40 MG TAB PO SCH ×2 (10:29→21:49)
[2023-02-08] MEDS: ATORVASTATIN 40 MG TAB PO SCH (10:29)
[2023-02-08] MEDS: METHENAMINE HIPPURATE 1 GM TAB PO SCH ×2 (10:29→21:47)
[2023-02-08] MEDS: GABAPENTIN 300 MG CAP PO SCH ×2 (10:29→21:50)
[2023-02-08] MEDS: ASPIRIN 81 MG ECTAB PO SCH (10:29)
[2023-02-08] MEDS: rifAXIMin 550 MG TABLET PO SCH ×2 (10:29→21:50)
[2023-02-08] MEDS: POTASSIUM CHLORIDE CRTAB 20 MEQ TABCR PO SCH (10:30)
[2023-02-08] MEDS: FAMOTIDINE 40 MG TABLET PO SCH (10:30)
[2023-02-08] MEDS: ARIPIprazole 1 MG/ML ORAL SOLN 150 ML BTL PO SCH (10:30)
[2023-02-08] MEDS: DOCUSATE SODIUM 100 MG CAP PO SCH ×2 (10:30→21:49)
[2023-02-08] MEDS: MONTELUKAST SODIUM 10 MG TABLET PO SCH (10:30)
[2023-02-08] MEDS: lamoTRIgine 25 MG TAB PO SCH ×2 (10:30→21:48)
[2023-02-08] MEDS: OXYBUTYNIN CHLORIDE XL 5 MG TABCR PO SCH (10:30)
[2023-02-08] MEDS: SPIRONOLACTONE 25 MG TAB PO SCH ×2 (10:30→17:13)
[2023-02-08] MEDS: METOPROLOL SUCC 25MG EXT REL TAB PO SCH (10:30)
[2023-02-08] MEDS: TORSEMIDE 20 MG TAB PO SCH (10:31)
[2023-02-08] MEDS: LACTULOSE SYRUP 30 GM/45 ML UDP PO SCH ×3 (10:31→21:52)
[2023-02-08] MEDS: SUCRALFATE 1 GM TAB PO SCH (10:31)
[2023-02-08] MEDS: FLUTICASONE PROPIONATE NA SPR 16 GM BTL SCH (10:31)
[2023-02-08] MEDS: VENLAFAXINE HCL XR 150 MG CAPXR PO SCH (10:31)
[2023-02-08] MEDS: TAMSULOSIN HCL 0.4 MG CAP PO SCH (10:31)
[2023-02-08] MEDS: VENLAFAXINE HCL XR 75 MG CAPXR PO SCH (10:31)
[2023-02-08] MEDS: FLUTICASONE FUROATE 100MCG 14 PUFFS/INHALER INH SCH (10:32)
[2023-02-08] MEDS: NYSTATIN SUSP 500,000 U/5 ML UDC PO SCH ×4 (10:32→21:47)
[2023-02-08] MEDS: UMECLIDINIUM/VILANTEROL 62.5/25MCG 7 PUFFS/INHALER INH SCH (10:32)
--- NOTE | 2023-02-08 14:32 | Hospitalist Progress Note ---
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 Encephalopathy-likely secondary to polypharmacy with pain medication Apparently took oxycodone to control pain before she was less responsive and confused as per the chart CT head okay, abg and ammonia levels and lactic acid levels ok, cr ok. Possible UTI-UA has been negative, urine and blood cultures are pending recent imaging studies no ascites Empiric IV Rocephin and follow the cultures Close monitoring telemetry floor Clinically much better during my examination this morning Left femoral fracture status post fall Left femur open reduction and internal fixation on 02/02/2023 Has been getting pain medications with oxycodone Change in mental status possibly from narcotics pain medications as patient recently had left femur surgery Hold narcotic pain medications and klonopin and trazadone Discussed with the patient about discontinuation of the pain medications with narcotics Agreeable to reduce the doses by half History of Gonzalez cirrhosis We will monitor for volume overload We will continue torsemide, spironolactone, rifaximin, lactulose follow labs.-Ammonia level remains normal History of CAD s/p CABG Moderate AAS Continue statin and aspirin Questionable reactive airway disease Continue home inhalers Type 2 diabetes Gastroparesis Neuropathy on gabapentin We will hold trulicity Lantus and sliding scale we will follow blood sugars Anxiety Depression Bipolar disorder Continue home medications Hypothyroidism Synthyroid Chronic back pain We will hold pain medications for now Hyponatremia Na 130 will follow labs. DVT prophylax SCDs Disposition telemetry floor Full code Likely discharge on Friday Admission and Anticipated Discharge Date Admission Date: February 07, 2023 Subjective 02/08/2023 The patient was seen and examined in telemetry unit She has been feeling much better and denies any significant symptoms He is alert awake and oriented during my examination Denies any fever and or chills, any abdominal pain, nausea and or vomiting, no shortness of breath Review of Systems Review of Systems: All systems reviewed and are unremarkable except as noted below Physical Exam Physical Exam: Lying in bed without any acute distress Constitutional: well developed, well nourished and + obese; not ill appearing Eyes: PERRL, conjunctivae normal, anicteric sclerae ENMT: external ear and nose normal, oropharynx normal Neck: trachea midline, no thyromegaly Respiratory: no respiratory distress Auscultation: + diminished lung sounds and + crackles (Minimal crackles at the bases) Cardiovascular: Rate/Rhythm: regular rate and regular rhythm; not tachycardic Heart Sounds: normal S1 and normal S2; no murmur Extremities: + edema (Trace to 1+ edema bilaterally) Gastrointestinal (Abdomen): Inspection/Auscultation: normal bowel sounds; abdomen not distended Percussion/Palpation: abdomen soft; abdomen nontender Musculoskeletal: Left leg pain with movement Neurologic: Alert, awake and oriented x3. Occasional confusion. Generally weak and lethargy Lymphatic: no cervical or axillary lymphadenopathy Results & Data Results & Data Vital Signs (Past 12 Hours) Vital Signs Temp Pulse Pulse Resp BP Pulse Ox O2 Del Method 02/08/23 11:39 36.7 C 83 18 132/77 96 Room Air 02/08/23 10:58 Room Air 02/08/23 08:05 36.9 C 82 20 128/79 96 Room Air 02/08/23 07:21 84 02/08/23 03:50 37.2 C 87 27 H 119/74 93 Room Air Laboratory Results Short CBC 02/07/23 02/08/23 Range/Units 20:01 05:22 WBC 7.43 7.58 (4.8-10.8) K/ul Hgb 9.7 L 8.9 L (12.0-16.0) g/dl Hct 30.0 L 27.5 L (37.0-47.0) % Plt Count 160 155 (130-400) K/uL BMP 02/07/23 02/08/23 20:01 05:22 Sodium 130 L 129 L Potassium 3.7 3.8 Chloride 98 99 Carbon Dioxide 25 25 BUN 12 10 Creatinine 0.86 0.79 Glucose 177 H 131 H Calcium 8.4 L 8.0 L Liver Function 02/07/23 Range/Units 20:01 Total Bilirubin 1.7 H (0.2-1.0) mg/dl Direct Bilirubin 0.6 H (0-0.2) mg/dl AST 35 (13-39) U/L ALT 12 (7-52) U/L Alkaline Phosphatase 133 H (34-104) U/L Albumin 3.0 L (3.4-5.0) gm/dl Urine 02/07/23 Range/Units 20:16 Urine Color Dark Yellow Urine Appearance Clear (Clear) Urine pH 6.0 (4.5-7.5) Ur Specific [place] 1.014 (1.000-1.030) Urine Protein Negative (Negative) Urine Glucose (UA) Trace H (Negative) Medications Administered Current Inpatient Medications Albuterol (Albuterol Hfa 8 Gm Inhaler) 2 puffs INH Q6 PRN PRN Reason: Shortness Of Breath Or Wheezin Stop: 03/10/23 00:36 Aripiprazole (Aripiprazole 1 Mg/Ml Oral Soln 150 Ml Btl) 2 mg PO DAILY [facility] Stop: 03/10/23 08:59 Last Admin: 02/08/23 10:30 Dose: 2 mg Aspirin (Aspirin 81 Mg Ectab) 81 mg PO DAILY [facility] Stop: 03/10/23 08:59 Last Admin: 02/08/23 10:29 Dose: 81 mg Atorvastatin Calcium (Atorvastatin 40 Mg Tab) 40 mg PO DAILY [facility] Stop: 03/10/23 08:59 Last Admin: 02/08/23 10:29 Dose: 40 mg Dextrose (Dextrose 50% 50 Ml Syringe) 25 - 50 ml IV UD PRN; Protocol PRN Reason: Hypoglycemia Protocol Stop: 03/10/23 00:36 Dicyclomine HCl (Dicyclomine Hcl 20 Mg Tab) 10 mg PO QID PRN PRN Reason: .Irritable bowel Stop: 03/10/23 00:36 Docusate Sodium (Docusate Sodium 100 Mg Cap) 100 mg PO BID [facility] Stop: 03/10/23 08:59 Last Admin: 02/08/23 10:30 Dose: 100 mg Ergocalciferol (Ergocalciferol 50,000 Units 1250 Mcg Cap) 50,000 units PO Th@0900 [facility] Stop: 03/15/23 08:59 Famotidine (Famotidine 40 Mg Tablet) 40 mg PO DAILY [facility] Stop: 03/10/23 08:59 Last Admin: 02/08/23 10:30 Dose: 40 mg Fluticasone Furoate (Fluticasone Furoate 100mcg 14 Puffs/Inhaler) 1 puffs INH DAILY [facility] Stop: 03/10/23 08:59 Last Admin: 02/08/23 10:32 Dose: 1 puffs Fluticasone Propionate (Fluticasone Propionate Na Spr 16 Gm Btl) 2 sprays NA DAILY [facility] Stop: 03/10/23 08:59 Last Admin: 02/08/23 10:31 Dose: 2 sprays Gabapentin (Gabapentin 300 Mg Cap) 300 mg PO Q12 [facility] Stop: 03/10/23 08:59 Last Admin: 02/08/23 10:29 Dose: 300 mg Glucagon (Glucagon For Inj 1 Mg Vial) 1 mg SQ UD PRN; Protocol PRN Reason: Hypoglycemia Protocol Stop: 03/10/23 00:36 Glucose (Glucose 10 Tab/Tube) 4 - 8 tab PO UD PRN; Protocol PRN Reason: Hypoglycemia Treatment Stop: 03/10/23 00:36 Glucose (Glucose 40% Gel 15 Gm Tube) 15 - 30 gm PO UD PRN; Protocol PRN Reason: Hypoglycemia Protocol Stop: 03/10/23 00:36 Sodium Chloride (Nss 1000ml) 1,000 mls @ 50 mls/hr IV .Q20H [facility] Stop: 02/08/23 20:36 Last Admin: 02/08/23 02:10 Dose: 50 mls/hr Ceftriaxone Sodium 2,000 mg/ (Dextrose) 70 mls @ 100 mls/hr IV Q24H [facility]; Protocol Stop: 02/18/23 00:59 Last Infusion: 02/08/23 02:53 Dose: Infused Insulin Aspart (Insulin Aspart Per Unit Charge) 0 units SC ACHS [facility] Stop: 03/10/23 07:29 Last Admin: 02/08/23 12:11 Dose: Not Given Insulin Glargine (Lantus Per Unit Charge) 20 units SQ Q12 [facility] Stop: 03/10/23 08:59 Last Admin: 02/08/23 10:28 Dose: 20 units Lactulose (Lactulose Syrup 30 Gm/45 Ml Udp) 30 gm PO TID [facility] Stop: 03/10/23 08:59 Last Admin: 02/08/23 13:34 Dose: Not Given Lamotrigine (Lamotrigine 25 Mg Tab) 25 mg PO DAILY [facility] Stop: 03/10/23 08:59 Last Admin: 02/08/23 10:30 Dose: 25 mg Lamotrigine (Lamotrigine 25 Mg Tab) 50 mg PO QPM [facility] Stop: 03/10/23 20:59 Levothyroxine Sodium (Levothyroxine Sodium 88 Mcg Tablet) 88 mcg PO DAILYBB [facility] Stop: 03/10/23 06:29 Last Admin: 02/08/23 05:39 Dose: 88 mcg Methenamine Hippurate (Methenamine Hippurate 1 Gm Tab) 1 gm PO BID [facility] Stop: 03/10/23 08:59 Last Admin: 02/08/23 10:29 Dose: 1 gm Metoprolol Succinate (Metoprolol Succ 25mg Ext Rel Tab) 25 mg PO DAILY [facility] Stop: 03/10/23 08:59 Last Admin: 02/08/23 10:30 Dose: 25 mg Miscellaneous (Carbohydrates For Hypoglycemia ) 15 - 30 gm PO UD PRN PRN Reason: Hypoglycemia Protocol Stop: 03/10/23 00:36 Montelukast Sodium (Montelukast Sodium 10 Mg Tablet) 10 mg PO DAILY [facility] Stop: 03/10/23 08:59 Last Admin: 02/08/23 10:30 Dose: 10 mg Nitroglycerin (Nitroglycerin Sl 0.4 Mg/Tab Tab) 0.4 mg SL Q5M PRN PRN Reason: Chest Pain Stop: 03/10/23 00:36 Nystatin (Nystatin Susp 500,000 U/5 Ml Udc) 5 ml PO QID [facility] Stop: 02/18/23 08:59 Last Admin: 02/08/23 13:34 Dose: 5 ml Oxybutynin Chloride (Oxybutynin Chloride Xl 5 Mg Tabcr) 5 mg PO DAILY [facility] Stop: 03/10/23 08:59 Last Admin: 02/08/23 10:30 Dose: 5 mg Pantoprazole Sodium (Pantoprazole 40 Mg Tab) 40 mg PO BID [facility] Stop: 03/10/23 08:59 Last Admin: 02/08/23 10:29 Dose: 40 mg Polyethylene Glycol (Polyethylene (Miralax) 17 Gm Pack) 17 gm PO DAILY PRN PRN Reason: Constipation Stop: 03/10/23 00:36 Potassium Chloride (Potassium Chloride Crtab 20 Meq Tabcr) 20 meq PO DAILY [facility] Stop: 03/10/23 08:59 Last Admin: 02/08/23 10:30 Dose: 20 meq Rifaximin (Rifaximin 550 Mg Tablet) 550 mg PO Q12 [facility] Stop: 03/10/23 08:59 Last Admin: 02/08/23 10:29 Dose: 550 mg Spironolactone (Spironolactone 25 Mg Tab) 50 mg PO BID17 [facility] Stop: 03/10/23 08:59 Last Admin: 02/08/23 10:30 Dose: 50 mg Sucralfate (Sucralfate 1 Gm Tab) 1 gm PO DAILY [facility] Stop: 03/10/23 08:59 Last Admin: 02/08/23 10:31 Dose: 1 gm Tamsulosin HCl (Tamsulosin Hcl 0.4 Mg Cap) 0.4 mg PO DAILY [facility] Stop: 03/10/23 08:59 Last Admin: 02/08/23 10:31 Dose: 0.4 mg Torsemide (Torsemide 20 Mg Tab) 20 mg PO DAILY [facility] Stop: 03/10/23 08:59 Last Admin: 02/08/23 10:31 Dose: 20 mg Umeclidinium/Vilanterol (Umeclidinium/Vilanterol 62.5/25mcg 7 Puffs/Inhaler) 1 puffs INH DAILY [facility] Stop: 03/10/23 08:59 Last Admin: 02/08/23 10:32 Dose: 1 puffs Venlafaxine HCl (Venlafaxine Hcl Xr 150 Mg Capxr) 150 mg PO DAILY [facility] Stop: 03/10/23 08:59 Last Admin: 02/08/23 10:31 Dose: 150 mg Venlafaxine HCl (Venlafaxine Hcl Xr 75 Mg Capxr) 75 mg PO DAILY [facility] Stop: 03/10/23 08:59 Last Admin: 02/08/23 10:31 Dose: 75 mg
[2023-02-08] MEDS ORDERED: ONDANSETRON INJ 2 MG/ML 2 ML VIAL IV PRN (17:41)
[2023-02-08] MEDS: ACETAMINOPHEN 325 MG TAB PO PRN (18:11)
[2023-02-08] MEDS: DICYCLOMINE HCL 20 MG TAB PO PRN (21:47)
[2023-02-09] MEDS: LEVOTHYROXINE SODIUM 88 MCG TABLET PO SCH (05:58)
[2023-02-09] MEDS: ACETAMINOPHEN 325 MG TAB PO PRN ×3 (06:04→20:57)
[2023-02-09 07:00] LABS: Basophils # (auto) 0.04 K/uL (0-0.2); Basophils % (auto) 0.6 %; Eosinophils # (auto) 0.28 K/uL (0-0.50); Hematocrit (blood only) 28.9 % (37.0-47.0); Hemoglobin 9.4 g/dl (12.0-16.0); Immature Granulocytes # (auto) 0.32 K/uL (0.01-0.20); Immature Granulocytes % (auto) 4.6 %; Lymphocytes # (auto) 1.16 K/uL (1.2-3.4); Lymphocytes % (auto) 16.5 %; Mean Corpuscular Hemoglobin 26.8 pg (25.0-34.0); Mean Corpuscular Hgb Conc 32.5 g/dL (32.0-36.0); Mean Corpuscular Volume 82.3 fL (80.0-100.0); Monocytes # (auto) 0.61 K/uL (0.11-0.59); Monocytes % (auto) 8.7 %; Neutrophils # (auto) 4.61 K/uL (1.40-6.50); Neutrophils % (auto) 65.6 %; Platelet Count 166 K/uL (130-400); RDW Coefficient of Variation 19.1 % (11.5-14.5); Red Blood Count 3.51 M/uL (4.20-5.40); White Blood Count 7.02 K/ul (4.8-10.8)
[2023-02-09 07:18] LABS: BUN Creatinine Ratio 11.1 (10-20); Calcium 8.5 mg/dl (8.6-10.3); Creatinine Clr Calc Pharmacy 85.8 ml/min; Est GFR (African American) 83.5 ml/min; Est GFR (Non-African American) 72.1 ml/min; Magnesium 1.9 mg/dl (1.7-2.4); Phosphorus 3.8 mg/dl (2.5-4.9); Potassium 4.1 mmol/L (3.5-5.1)
[2023-02-09] MEDS: LANTUS PER UNIT CHARGE SQ SCH ×2 (08:34→21:17)
[2023-02-09] MEDS: INSULIN ASPART PER UNIT CHARGE SC SCH ×4 (08:35→21:03)
[2023-02-09] MEDS: NYSTATIN SUSP 500,000 U/5 ML UDC PO SCH ×4 (08:39→20:56)
[2023-02-09] MEDS: FLUTICASONE FUROATE 100MCG 14 PUFFS/INHALER INH SCH (08:40)
[2023-02-09] MEDS: UMECLIDINIUM/VILANTEROL 62.5/25MCG 7 PUFFS/INHALER INH SCH (08:40)
[2023-02-09] MEDS: LACTULOSE SYRUP 30 GM/45 ML UDP PO SCH ×3 (08:40→21:03)
[2023-02-09] MEDS: METHENAMINE HIPPURATE 1 GM TAB PO SCH ×2 (08:41→20:59)
[2023-02-09] MEDS: TAMSULOSIN HCL 0.4 MG CAP PO SCH (08:41)
[2023-02-09] MEDS: PANTOprazole 40 MG TAB PO SCH ×2 (08:41→21:00)
[2023-02-09] MEDS: SPIRONOLACTONE 25 MG TAB PO SCH ×2 (08:41→18:07)
[2023-02-09] MEDS: ASPIRIN 81 MG ECTAB PO SCH (08:41)
[2023-02-09] MEDS: lamoTRIgine 25 MG TAB PO SCH ×2 (08:42→20:57)
[2023-02-09] MEDS: ATORVASTATIN 40 MG TAB PO SCH (08:42)
[2023-02-09] MEDS: GABAPENTIN 300 MG CAP PO SCH ×2 (08:42→20:58)
[2023-02-09] MEDS: METOPROLOL SUCC 25MG EXT REL TAB PO SCH (08:42)
[2023-02-09] MEDS: OXYBUTYNIN CHLORIDE XL 5 MG TABCR PO SCH (08:42)
[2023-02-09] MEDS: TORSEMIDE 20 MG TAB PO SCH (08:43)
[2023-02-09] MEDS: DICYCLOMINE HCL 20 MG TAB PO PRN ×2 (08:43→20:56)
[2023-02-09] MEDS: VENLAFAXINE HCL XR 150 MG CAPXR PO SCH (08:43)
[2023-02-09] MEDS: FAMOTIDINE 40 MG TABLET PO SCH (08:43)
[2023-02-09] MEDS: SUCRALFATE 1 GM TAB PO SCH (08:44)
[2023-02-09] MEDS: rifAXIMin 550 MG TABLET PO SCH ×2 (08:44→20:58)
[2023-02-09] MEDS: DOCUSATE SODIUM 100 MG CAP PO SCH ×2 (08:45→20:55)
[2023-02-09] MEDS: ARIPIprazole 1 MG/ML ORAL SOLN 150 ML BTL PO SCH (08:45)
[2023-02-09] MEDS: FLUTICASONE PROPIONATE NA SPR 16 GM BTL SCH (08:46)
[2023-02-09] MEDS: POTASSIUM CHLORIDE CRTAB 20 MEQ TABCR PO SCH (08:46)
[2023-02-09] MEDS: MONTELUKAST SODIUM 10 MG TABLET PO SCH (08:46)
[2023-02-09] MEDS: VENLAFAXINE HCL XR 75 MG CAPXR PO SCH (08:47)
--- NOTE | 2023-02-09 10:40 | XRay Report ---
XR femur LT 2V routine HISTORY: 72 years-old Female fracture followup follow-up study in a patient with an acute left femor al fracture COMPARISON: 02/03/2023 TECHNIQUE: 2 views of left femur FINDINGS: Left hip arthroplasty is intact. Plate and screw fixation of the comminuted distal diaphyseal fractur e of the left femur is again noted. The hardware is intact. There are skin daniel. No unexpected rad iopaque foreign bodies are present. Fracture alignment has improved from 02/03/2023. IMPRESSION: Internal fixation of the distal diaphyseal fracture demonstrating improved alignment comp ared to 02/03/2023. ACT 112: Negative or not required by law. The above report was generated using voice recognition software. It may contain grammatical, syntax o r spelling errors. Electronically signed by: Tommie Loredo M.D. 02/09/2023 10:39 AM
--- NOTE | 2023-02-09 13:00 | Hospitalist Progress Note ---
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 Encephalopathy-likely secondary to polypharmacy with pain medication Apparently took oxycodone to control pain before she was less responsive and confused as per the chart CT head okay, abg and ammonia levels and lactic acid levels ok, cr ok. Possible UTI-UA has been negative, urine and blood cultures are pending recent imaging studies no ascites Empiric IV Rocephin and follow the cultures Close monitoring telemetry floor Clinically much better during my examination this morning No more confusion and she has not been getting any narcotics and/or benzodiazepines Strongly advised not to use any more narcotics for pain and will stop benzodiazepines on discharge Left femoral fracture status post fall Left femur open reduction and internal fixation on 02/02/2023 Has been getting pain medications with oxycodone Change in mental status possibly from narcotics pain medications as patient recently had left femur surgery Hold narcotic pain medications and klonopin and trazadone Discussed with the patient about discontinuation of the pain medications with narcotics Agreeable to reduce the doses by half Discussed with the Ortho and they will keep the recommendation for dressing History of Gonzalez cirrhosis We will monitor for volume overload We will continue torsemide, spironolactone, rifaximin, lactulose follow labs.-Ammonia level remains normal History of CAD s/p CABG Moderate AAS Continue statin and aspirin Questionable reactive airway disease Continue home inhalers Type 2 diabetes Gastroparesis Neuropathy on gabapentin We will hold trulicity Lantus and sliding scale we will follow blood sugars Anxiety Depression Bipolar disorder Continue home medications Hypothyroidism Synthyroid Chronic back pain We will hold pain medications for now Hyponatremia Na 130 will follow labs. DVT prophylax SCDs Disposition telemetry floor Full code Likely discharge on Friday Try to talk to the daughters but not available Admission and Anticipated Discharge Date Admission Date: February 07, 2023 Subjective 02/08/2023 The patient was seen and examined in telemetry unit She has been feeling much better and denies any significant symptoms He is alert awake and oriented during my examination Denies any fever and or chills, any abdominal pain, nausea and or vomiting, no shortness of breath 02/09/2023 The patient was seen and examined in telemetry unit She has been feeling much better and denies any significant symptoms She has been communicating normally and does not have any acute confusion Back to her baseline diet and activities Review of Systems Review of Systems: All systems reviewed and are unremarkable except as noted below Physical Exam Physical Exam: Lying in bed without any acute distress Constitutional: well developed, well nourished and + obese; not ill appearing Eyes: PERRL, conjunctivae normal, anicteric sclerae ENMT: external ear and nose normal, oropharynx normal Neck: trachea midline, no thyromegaly Respiratory: no respiratory distress Auscultation: + diminished lung sounds and + crackles (Minimal crackles at the bases) Cardiovascular: Rate/Rhythm: regular rate and regular rhythm; not tachycardic Heart Sounds: normal S1 and normal S2; no murmur Extremities: + edema (Trace to 1+ edema bilaterally) Gastrointestinal (Abdomen): Inspection/Auscultation: normal bowel sounds; abdomen not distended Percussion/Palpation: abdomen soft; abdomen nontender Musculoskeletal: No acute arthritis involving any of the joint Neurologic: normal touch/pain/proprioception and moves all extremities; no focal motor deficits and not confused Psychiatric: A+Ox3, euthymic affect Lymphatic: no cervical or axillary lymphadenopathy Results & Data Results & Data Vital Signs (Past 12 Hours) Vital Signs Temp Pulse Resp BP Pulse Ox O2 Del Method 02/09/23 11:47 36.7 C 71 20 112/74 97 Room Air 02/09/23 07:56 37.2 C 86 18 115/67 98 Room Air 02/09/23 03:44 36.5 C 73 20 122/59 L 92 Room Air Laboratory Results Short CBC 02/09/23 Range/Units 06:11 WBC 7.02 (4.8-10.8) K/ul Hgb 9.4 L (12.0-16.0) g/dl Hct 28.9 L (37.0-47.0) % Plt Count 166 (130-400) K/uL BMP 02/09/23 06:11 Sodium 135 L Potassium 4.1 Chloride 102 Carbon Dioxide 27 BUN 9 Creatinine 0.81 Glucose 141 H Calcium 8.5 L Medications Administered Current Inpatient Medications Acetaminophen (Acetaminophen 325 Mg Tab) 650 mg PO Q4H PRN PRN Reason: Pain Stop: 03/10/23 17:39 Last Admin: 02/09/23 12:32 Dose: 650 mg Albuterol (Albuterol Hfa 8 Gm Inhaler) 2 puffs INH Q6 PRN PRN Reason: Shortness Of Breath Or Wheezin Stop: 03/10/23 00:36 Last Admin: 02/08/23 18:30 Dose: 2 puffs Aripiprazole (Aripiprazole 1 Mg/Ml Oral Soln 150 Ml Btl) 2 mg PO DAILY [facility] Stop: 03/10/23 08:59 Last Admin: 02/09/23 08:45 Dose: 2 mg Aspirin (Aspirin 81 Mg Ectab) 81 mg PO DAILY [facility] Stop: 03/10/23 08:59 Last Admin: 02/09/23 08:41 Dose: 81 mg Atorvastatin Calcium (Atorvastatin 40 Mg Tab) 40 mg PO DAILY [facility] Stop: 03/10/23 08:59 Last Admin: 02/09/23 08:42 Dose: 40 mg Dextrose (Dextrose 50% 50 Ml Syringe) 25 - 50 ml IV UD PRN; Protocol PRN Reason: Hypoglycemia Protocol Stop: 03/10/23 00:36 Dicyclomine HCl (Dicyclomine Hcl 20 Mg Tab) 10 mg PO QID PRN PRN Reason: .Irritable bowel Stop: 03/10/23 00:36 Last Admin: 02/09/23 08:43 Dose: 10 mg Docusate Sodium (Docusate Sodium 100 Mg Cap) 100 mg PO BID [facility] Stop: 03/10/23 08:59 Last Admin: 02/09/23 08:45 Dose: Not Given Ergocalciferol (Ergocalciferol 50,000 Units 1250 Mcg Cap) 50,000 units PO Th@0900 [facility] Stop: 03/15/23 08:59 Famotidine (Famotidine 40 Mg Tablet) 40 mg PO DAILY [facility] Stop: 03/10/23 08:59 Last Admin: 02/09/23 08:43 Dose: 40 mg Fluticasone Furoate (Fluticasone Furoate 100mcg 14 Puffs/Inhaler) 1 puffs INH DAILY [facility] Stop: 03/10/23 08:59 Last Admin: 02/09/23 08:40 Dose: 1 puffs Fluticasone Propionate (Fluticasone Propionate Na Spr 16 Gm Btl) 2 sprays NA DAILY [facility] Stop: 03/10/23 08:59 Last Admin: 02/09/23 08:46 Dose: 2 sprays Gabapentin (Gabapentin 300 Mg Cap) 300 mg PO Q12 [facility] Stop: 03/10/23 08:59 Last Admin: 02/09/23 08:42 Dose: 300 mg Glucagon (Glucagon For Inj 1 Mg Vial) 1 mg SQ UD PRN; Protocol PRN Reason: Hypoglycemia Protocol Stop: 03/10/23 00:36 Glucose (Glucose 10 Tab/Tube) 4 - 8 tab PO UD PRN; Protocol PRN Reason: Hypoglycemia Treatment Stop: 03/10/23 00:36 Glucose (Glucose 40% Gel 15 Gm Tube) 15 - 30 gm PO UD PRN; Protocol PRN Reason: Hypoglycemia Protocol Stop: 03/10/23 00:36 Ceftriaxone Sodium 2,000 mg/ (Dextrose) 70 mls @ 100 mls/hr IV Q24H [facility]; Protocol Stop: 02/18/23 00:59 Last Infusion: 02/08/23 22:44 Dose: Infused Insulin Aspart (Insulin Aspart Per Unit Charge) 0 units SC ACHS [facility] Stop: 03/10/23 07:29 Last Admin: 02/09/23 12:29 Dose: Not Given Insulin Glargine (Lantus Per Unit Charge) 20 units SQ Q12 [facility] Stop: 03/10/23 08:59 Last Admin: 02/09/23 08:34 Dose: 20 units Lactulose (Lactulose Syrup 30 Gm/45 Ml Udp) 30 gm PO TID [facility] Stop: 03/10/23 08:59 Last Admin: 02/09/23 12:33 Dose: 30 gm Lamotrigine (Lamotrigine 25 Mg Tab) 25 mg PO DAILY [facility] Stop: 03/10/23 08:59 Last Admin: 02/09/23 08:42 Dose: 25 mg Lamotrigine (Lamotrigine 25 Mg Tab) 50 mg PO QPM [facility] Stop: 03/10/23 20:59 Last Admin: 02/08/23 21:48 Dose: 50 mg Levothyroxine Sodium (Levothyroxine Sodium 88 Mcg Tablet) 88 mcg PO DAILYBB [facility] Stop: 03/10/23 06:29 Last Admin: 02/09/23 05:58 Dose: 88 mcg Methenamine Hippurate (Methenamine Hippurate 1 Gm Tab) 1 gm PO BID [facility] Stop: 03/10/23 08:59 Last Admin: 02/09/23 08:41 Dose: 1 gm Metoprolol Succinate (Metoprolol Succ 25mg Ext Rel Tab) 25 mg PO DAILY [facility] Stop: 03/10/23 08:59 Last Admin: 02/09/23 08:42 Dose: 25 mg Miscellaneous (Carbohydrates For Hypoglycemia ) 15 - 30 gm PO UD PRN PRN Reason: Hypoglycemia Protocol Stop: 03/10/23 00:36 Montelukast Sodium (Montelukast Sodium 10 Mg Tablet) 10 mg PO DAILY [facility] Stop: 03/10/23 08:59 Last Admin: 02/09/23 08:46 Dose: 10 mg Nitroglycerin (Nitroglycerin Sl 0.4 Mg/Tab Tab) 0.4 mg SL Q5M PRN PRN Reason: Chest Pain Stop: 03/10/23 00:36 Nystatin (Nystatin Susp 500,000 U/5 Ml Udc) 5 ml PO QID [facility] Stop: 02/18/23 08:59 Last Admin: 02/09/23 12:33 Dose: 5 ml Ondansetron HCl (Ondansetron Inj 2 Mg/Ml 2 Ml Vial) 4 mg IV Q6H PRN PRN Reason: Nausea And Vomiting Stop: 03/10/23 17:44 Last Admin: 02/08/23 18:11 Dose: 4 mg Oxybutynin Chloride (Oxybutynin Chloride Xl 5 Mg Tabcr) 5 mg PO DAILY [facility] Stop: 03/10/23 08:59 Last Admin: 02/09/23 08:42 Dose: 5 mg Pantoprazole Sodium (Pantoprazole 40 Mg Tab) 40 mg PO BID [facility] Stop: 03/10/23 08:59 Last Admin: 02/09/23 08:41 Dose: 40 mg Polyethylene Glycol (Polyethylene (Miralax) 17 Gm Pack) 17 gm PO DAILY PRN PRN Reason: Constipation Stop: 03/10/23 00:36 Potassium Chloride (Potassium Chloride Crtab 20 Meq Tabcr) 20 meq PO DAILY [facility] Stop: 03/10/23 08:59 Last Admin: 02/09/23 08:46 Dose: 20 meq Rifaximin (Rifaximin 550 Mg Tablet) 550 mg PO Q12 [facility] Stop: 03/10/23 08:59 Last Admin: 02/09/23 08:44 Dose: 550 mg Spironolactone (Spironolactone 25 Mg Tab) 50 mg PO BID17 [facility] Stop: 03/10/23 08:59 Last Admin: 02/09/23 08:41 Dose: 50 mg Sucralfate (Sucralfate 1 Gm Tab) 1 gm PO DAILY [facility] Stop: 03/10/23 08:59 Last Admin: 02/09/23 08:44 Dose: 1 gm Tamsulosin HCl (Tamsulosin Hcl 0.4 Mg Cap) 0.4 mg PO DAILY [facility] Stop: 03/10/23 08:59 Last Admin: 02/09/23 08:41 Dose: 0.4 mg Torsemide (Torsemide 20 Mg Tab) 20 mg PO DAILY [facility] Stop: 03/10/23 08:59 Last Admin: 02/09/23 08:43 Dose: 20 mg Umeclidinium/Vilanterol (Umeclidinium/Vilanterol 62.5/25mcg 7 Puffs/Inhaler) 1 puffs INH DAILY [facility] Stop: 03/10/23 08:59 Last Admin: 02/09/23 08:40 Dose: 1 puffs Venlafaxine HCl (Venlafaxine Hcl Xr 150 Mg Capxr) 150 mg PO DAILY [facility] Stop: 03/10/23 08:59 Last Admin: 02/09/23 08:43 Dose: 150 mg Venlafaxine HCl (Venlafaxine Hcl Xr 75 Mg Capxr) 75 mg PO DAILY [facility] Stop: 03/10/23 08:59 Last Admin: 02/09/23 08:47 Dose: 75 mg
--- NOTE | 2023-02-09 14:19 | Orthopedic Consultation ---
Date of Service February 09, 2023 Assessment & Plan (1) Fracture of femur, distal, left, closed: Appears to be making progress without complication. Fresh dressing applied today. This can be changed daily or with hygiene, as needed. Continue original plan to follow-up with Dr. Ruiz this week. Refer further questions to [facility] tomorrow History of Present Illness Reason for Consultation: Left distal femur fracture ORIF follow-up care Requesting Physician: . Attending Physician: David Chery MD 72-year-old female admitted with mental status changes from [facility] where she is recovering form a 02/02/2023 ORIF of her distal femur by Dr. Tommie Ruiz of [facility]. Case was discussed with Dr. Ruiz. She is due to be seen in the office this week for ongoing care. Dressing was to be removed the postoperative day 7. Primary team requested assistance with her ongoing care given that she is admitted with us now. Allergies Allergy/AdvReac Type Severity Reaction Status Date / Time propoxyphene Allergy Intermediate Rash Verified 02/07/23 23:43 fentanyl AdvReac Intermediate PANIC Verified 02/07/23 23:43 WANTS TO RUN AND AGGRESSIVE methocarbamol AdvReac Intermediate DELERIUM Verified 02/07/23 23:43 zolpidem AdvReac Intermediate confusion Verified 02/07/23 23:43 Home Medications Medication Instructions Recorded Confirmed Type acetaminophen 500 mg tablet 500 mg PO Q4 02/07/23 02/07/23 History (Tylenol Extra Strength) albuterol sulfate 90 mcg/actuation 2 inh inhalation Q6 PRN Shortness 02/07/23 02/07/23 History aerosol inhaler Of Breath Or Wheezing aripiprazole 2 mg tablet 2 mg PO DAILY 02/07/23 02/07/23 History aspirin 81 mg tablet,delayed 81 mg PO DAILY 02/07/23 02/07/23 History release atorvastatin 40 mg tablet 40 mg PO DAILY 02/07/23 02/07/23 History clonazepam 0.5 mg tablet 0.25 mg PO Q8 02/07/23 02/07/23 History dicyclomine 20 mg tablet 10 mg PO QID PRN .Irritable bowel 02/07/23 02/07/23 History docusate sodium 100 mg capsule 100 mg PO BID 02/07/23 02/07/23 History dulaglutide 4.5 mg/0.5 mL 4.5 mg subcut .Q MON 02/07/23 02/07/23 History subcutaneous pen injector (Trulicity) ergocalciferol (vitamin D2) 1,250 1,250 mcg PO .Q THUR 02/07/23 02/07/23 History mcg (50,000 unit) capsule (Vitamin D2) famotidine 20 mg tablet 40 mg PO DAILY 02/07/23 02/07/23 History fluticasone fur. 100 mcg-umeclid 1 inh inhalation DAILY 02/07/23 02/07/23 History 62.5 mcg-vilant 25 mcg inhalat.powder (Trelegy Ellipta) fluticasone propionate 50 2 spray intranasal DAILY 02/07/23 02/07/23 History mcg/actuation nasal spray,suspension (Flonase Allergy Relief) gabapentin 300 mg capsule 300 mg PO Q12 02/07/23 02/07/23 History insulin glargine 100 unit/mL 20 unit subcut Q12 02/07/23 02/07/23 History subcutaneous solution (Lantus U-100 Insulin) insulin regular human 100 unit/mL 1 sliding scale dose subcut 02/07/23 02/07/23 History injection solution (Humulin R USEASDIRECTD Regular U-100 Insulin) lactulose 20 gram/30 mL oral 30 g PO TID 02/07/23 02/07/23 History solution lamotrigine 100 mg tablet 100 mg PO DAILY 02/07/23 02/07/23 History (Lamictal) lamotrigine 25 mg tablet (Lamictal) 25 mg PO DAILY 02/07/23 02/07/23 History lamotrigine 25 mg tablet (Lamictal) 50 mg PO QPM 02/07/23 02/07/23 History levothyroxine 88 mcg tablet 88 mcg PO QAM 02/07/23 02/07/23 History methenamine hippurate 1 gram tablet 1 g PO BID 02/07/23 02/07/23 History metoprolol succinate 25 mg 25 mg PO DAILY 02/07/23 02/07/23 History tablet,extended release 24 hr montelukast 10 mg tablet 10 mg PO DAILY 02/07/23 02/07/23 History morphine 15 mg tablet,extended 15 mg PO HS PRN Pain 02/07/23 02/07/23 History release nitroglycerin 0.4 mg sublingual 0.4 mg sublingual DIRECTED 02/07/23 02/07/23 History tablet (Nitrostat) nystatin 100,000 unit/mL oral 5 ml PO DIRECTED 02/07/23 02/07/23 History suspension ondansetron HCl 4 mg tablet 4 mg PO Q4 PRN Nausea 02/07/23 02/07/23 History oxybutynin chloride 5 mg 5 mg PO DAILY 02/07/23 02/07/23 History tablet,extended release 24 hr oxycodone 5 mg tablet 5 mg PO Q8 PRN PAIN 4-6 02/07/23 02/07/23 History pantoprazole 40 mg tablet,delayed 40 mg PO BID 02/07/23 02/07/23 History release polyethylene glycol 3350 17 gram 17 g PO DAILY PRN Constipation 02/07/23 02/07/23 History oral powder packet (Miralax) potassium chloride 20 mEq 20 meq PO DAILY 02/07/23 02/07/23 History tablet,extended release(part/cryst) (Klor-Con M) rifaximin 550 mg tablet (Xifaxan) 550 mg PO Q12 02/07/23 02/07/23 History sennosides 8.6 mg-docusate sodium 1 tab-cap PO .QLUNCH PRN 02/07/23 02/07/23 History 50 mg tablet (Senokot-S) Constipation spironolactone 25 mg tablet 50 mg PO BID 02/07/23 02/07/23 History sucralfate 1 gram tablet 1 g PO DAILY 02/07/23 02/07/23 History tamsulosin 0.4 mg capsule 0.4 mg PO DAILY 02/07/23 02/07/23 History torsemide 20 mg tablet 20 mg PO DAILY 02/07/23 02/07/23 History trazodone 50 mg tablet 50 mg PO HS 02/07/23 02/07/23 History venlafaxine 150 mg 150 mg PO DAILY 02/07/23 02/07/23 History capsule,extended release 24 hr venlafaxine 75 mg tablet,extended 75 mg PO DAILY 02/07/23 02/07/23 History release 24 hr Past Med/Surg History Medical History (Updated 02/09/23 @ 14:22 by Arvind Levy MD) Anxiety Bipolar disorder CAD (coronary artery disease) History of multiple PCI's to the RCA with subsequent CABG x1 in 2010 x 1 vessel Most recent cardiac testing-negative DSE in December 2017 Follows w/ Dr. Blackwell and Dr. Lucas Cardiac arrest pt states she was told she went into cardiac arrest during her hip surgery in 02/2022 at [facility] and was "revived". no other details were given. Viutrsf-Vqhxa-Rsobg disease follows w/ Dr. Lemus LEG WEAKNESS CURRENT PT/OT FOR - BRACES B/L LEGS Chronic diastolic CHF (congestive heart failure) Chronic low back pain Chronic pain syndrome Cough started about 8 months ago s/p covid-19 virus -- currently treating with augmentin PO bid and prednisone. prednisone to end 05/27/22 and abx to finish on 06/01/22 Depression DM type 2 (diabetes mellitus, type 2) IDDM Dyslipidemia Encephalopathy d/c from [facility] 09/20/19 (hepatic encephalopathy) Fracture of femur, distal, left, closed Gastroparesis GERD (gastroesophageal reflux disease) History of anesthesia reaction REMOTE HX, SIDE EFFECTS : ANXIETY AND SEVERE N/V History of COVID-19 may or june 2021, has cough since. Hx of fall pt. fell in the bathroom at home, pt. wasn't aware of what happen but was told this by her family 02/05/2022 Hypertension Hypothyroidism Irregular heart beat follows Dr. 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 Portal hypertensive gastropathy SOB (shortness of breath) SINCE COVID -8 MON AGO, SOB, COUGH...NO DX...HAS VISIT WITH PULM UPCOMING TO EVALUATE Spondylosis Urinary incontinence UTI (urinary tract infection) FREQUENT/PREVENTATIVE ABX'S CURRENTLY MOST RECENT UTI JANUARY 04 - ABX COMPLETE - ON CURRENT PROPHYLACTIC TX Surgical History History of appendectomy History of back surgery sacral area History of cardiac cath multiple - most recent - 2 years ago @ [facility] History of cataract surgery RT History of colonoscopy History of esophagogastroduodenoscopy (EGD) History of heart artery stent 2 yrs ago @ [facility] > 6 or 7 stents > follows Dr. Lucas History of left hip replacement 02/05/2022 History of total right knee replacement Hx of cholecystectomy S/P CABG x 1 2010 - single vessel S/P CARLOS (total abdominal hysterectomy) Family History Father Coronary heart disease Brother Coronary heart disease Father No problems noted. Mother No problems noted. 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 Physical Exam LLE: Tape and ABD dressing was removed. It was dry with saturation from previous drainage. The wounds were well approximated without erythema or drainage. The sutures and daniel were intact. Extensive ecchymosis that is resolving. Knee immobilizer was well fit. Optifoam border dressing was reapplied over the incisions. Constitutional WD/WN, vitals as above Respiratory normal respiratory effort; no respiratory distress Cardiovascular Extremities: normal capillary refill; no edema Skin no rashes, warm and dry Psychiatric Orientation: alert, oriented to person and cooperative; + not oriented to place Results & Data Results & Data Laboratory Results H & H 02/07/23 02/08/23 02/09/23 Range/Units 20:01 05:22 06:11 Hgb 9.7 L 8.9 L 9.4 L (12.0-16.0) g/dl Hct 30.0 L 27.5 L 28.9 L (37.0-47.0) % PG Care Time/CCT Total # of Minutes Spent Total Time Spent with Patient: Total time spent is greater than 50% in coordination of care (as documented) at patient's floor/unit and/or counseling patient: Coding Level of Care Code 26806 IN/OBS CONSULT LVL 3,45M Diagnoses Fracture of femur, distal, left, closed S72.402A
[2023-02-09] MEDS: cefTRIAXone SODIUM 2,000 MG in DEXTROSE 5% 50 ML IV SCH (21:03)
[2023-02-10] MEDS: LEVOTHYROXINE SODIUM 88 MCG TABLET PO SCH (05:22)
[2023-02-10 06:49] LABS: Basophils # (auto) 0.05 K/uL (0-0.2); Basophils % (auto) 0.7 %; Eosinophils # (auto) 0.32 K/uL (0-0.50); Eosinophils % (auto) 4.4 %; Hematocrit (blood only) 29.8 % (37.0-47.0); Hemoglobin 9.6 g/dl (12.0-16.0); Immature Granulocytes # (auto) 0.36 K/uL (0.01-0.20); Immature Granulocytes % (auto) 4.9 %; Lymphocytes # (auto) 1.23 K/uL (1.2-3.4); Lymphocytes % (auto) 16.7 %; Mean Corpuscular Hgb Conc 32.2 g/dL (32.0-36.0); Mean Corpuscular Volume 83.9 fL (80.0-100.0); Mean Platelet Volume 10.1 fL (9.4-12.4); Monocytes # (auto) 0.65 K/uL (0.11-0.59); Monocytes % (auto) 8.8 %; Neutrophils # (auto) 4.74 K/uL (1.40-6.50); Neutrophils % (auto) 64.5 %; Platelet Count 189 K/uL (130-400); RDW Coefficient of Variation 19.5 % (11.5-14.5); RDW Standard Deviation 56.4 fL (36.4-46.3); Red Blood Count 3.55 M/uL (4.20-5.40); White Blood Count 7.35 K/ul (4.8-10.8)
[2023-02-10 07:18] LABS: BUN Creatinine Ratio 10.7 (10-20); Calcium 8.8 mg/dl (8.6-10.3); Creatinine Clr Calc Pharmacy 82.8 ml/min; Est GFR (African American) 79.9 ml/min; Magnesium 1.9 mg/dl (1.7-2.4); Potassium 3.9 mmol/L (3.5-5.1)
[2023-02-10] MEDS: INSULIN ASPART PER UNIT CHARGE SC SCH ×2 (08:23→12:03)
--- NOTE | 2023-02-10 08:24 | Communication Note ---
Date of Service: February 10, 2023 discharge instructions placed in chart, patient has f/u with Dr Ruiz later this week for routine post op care. she can f/u in the office if discharged prior to then, otherwise can remove daniel 14-16 days post op
[2023-02-10] MEDS: LANTUS PER UNIT CHARGE SQ SCH (08:46)
[2023-02-10] MEDS: FLUTICASONE FUROATE 100MCG 14 PUFFS/INHALER INH SCH (08:47)
[2023-02-10] MEDS: UMECLIDINIUM/VILANTEROL 62.5/25MCG 7 PUFFS/INHALER INH SCH (08:48)
[2023-02-10] MEDS: DOCUSATE SODIUM 100 MG CAP PO SCH (08:49)
[2023-02-10] MEDS: PANTOprazole 40 MG TAB PO SCH (08:53)
[2023-02-10] MEDS: ASPIRIN 81 MG ECTAB PO SCH (08:54)
[2023-02-10] MEDS: GABAPENTIN 300 MG CAP PO SCH (08:54)
[2023-02-10] MEDS: ARIPIprazole 1 MG/ML ORAL SOLN 150 ML BTL PO SCH (08:54)
[2023-02-10] MEDS: METOPROLOL SUCC 25MG EXT REL TAB PO SCH (08:54)
[2023-02-10] MEDS: FAMOTIDINE 40 MG TABLET PO SCH (08:55)
[2023-02-10] MEDS: TAMSULOSIN HCL 0.4 MG CAP PO SCH (08:55)
[2023-02-10] MEDS: ATORVASTATIN 40 MG TAB PO SCH (08:55)
[2023-02-10] MEDS: VENLAFAXINE HCL XR 150 MG CAPXR PO SCH (08:56)
[2023-02-10] MEDS: METHENAMINE HIPPURATE 1 GM TAB PO SCH (08:56)
[2023-02-10] MEDS: OXYBUTYNIN CHLORIDE XL 5 MG TABCR PO SCH (08:57)
[2023-02-10] MEDS: TORSEMIDE 20 MG TAB PO SCH (08:57)
[2023-02-10] MEDS: DICYCLOMINE HCL 20 MG TAB PO PRN (08:57)
[2023-02-10] MEDS: NYSTATIN SUSP 500,000 U/5 ML UDC PO SCH ×2 (08:58→11:58)
[2023-02-10] MEDS: MONTELUKAST SODIUM 10 MG TABLET PO SCH (08:58)
[2023-02-10] MEDS: SUCRALFATE 1 GM TAB PO SCH (08:59)
[2023-02-10] MEDS: rifAXIMin 550 MG TABLET PO SCH (08:59)
[2023-02-10] MEDS: SPIRONOLACTONE 25 MG TAB PO SCH (08:59)
[2023-02-10] MEDS: VENLAFAXINE HCL XR 75 MG CAPXR PO SCH (09:00)
[2023-02-10] MEDS: FLUTICASONE PROPIONATE NA SPR 16 GM BTL SCH (09:01)
[2023-02-10] MEDS: LACTULOSE SYRUP 30 GM/45 ML UDP PO SCH (09:03)
[2023-02-10] MEDS: POTASSIUM CHLORIDE CRTAB 20 MEQ TABCR PO SCH (09:03)
[2023-02-10] MEDS: lamoTRIgine 25 MG TAB PO SCH (09:03)
--- NOTE | 2023-02-10 11:02 | Hospitalist Progress Note ---
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 Encephalopathy-likely secondary to polypharmacy with pain medication Apparently took oxycodone to control pain before she was less responsive and confused as per the chart CT head okay, abg and ammonia levels and lactic acid levels ok, cr ok. Possible UTI-UA has been negative, urine and blood cultures are pending recent imaging studies no ascites Empiric IV Rocephin and follow the cultures Close monitoring telemetry floor Clinically much better during my examination this morning No more confusion and she has not been getting any narcotics and/or benzodiazepines Strongly advised not to use any more narcotics for pain and will stop benzodiazepines on discharge She is agreeable to be discharged without oxycodone but definitely wanted to have benzodiazepines to continue This was discussed with the daughter in detail She will be discharged to [facility] this afternoon Left femoral fracture status post fall Left femur open reduction and internal fixation on 02/02/2023 Has been getting pain medications with oxycodone Change in mental status possibly from narcotics pain medications as patient recently had left femur surgery Hold narcotic pain medications and klonopin and trazadone Discussed with the patient about discontinuation of the pain medications with narcotics Agreeable to reduce the doses by half Discussed with the Ortho and they will keep the recommendation for dressing Advised to keep appointment with the Ortho as an outpatient as planned before History of Gonzalez cirrhosis We will monitor for volume overload We will continue torsemide, spironolactone, rifaximin, lactulose follow labs.-Ammonia level remains normal Please keep taking lactulose to make sure you have at least 2 bowel movements regularly to avoid and cephalopathy History of CAD s/p CABG Moderate AAS Continue statin and aspirin Questionable reactive airway disease Continue home inhalers Type 2 diabetes Gastroparesis Neuropathy on gabapentin We will hold trulicity Lantus and sliding scale we will follow blood sugars Anxiety Depression Bipolar disorder Continue home medications Hypothyroidism Synthyroid Chronic back pain We will hold pain medications for now Hyponatremia Na 130 will follow labs. DVT prophylax SCDs Disposition telemetry floor Full code Likely discharge on Friday Try to talk to the daughters but not available Be discharged to [facility] this afternoon that is 02/10/2023 Admission and Anticipated Discharge Date Admission Date: February 07, 2023 Subjective 02/08/2023 The patient was seen and examined in telemetry unit She has been feeling much better and denies any significant symptoms He is alert awake and oriented during my examination Denies any fever and or chills, any abdominal pain, nausea and or vomiting, no shortness of breath 02/09/2023 The patient was seen and examined in telemetry unit She has been feeling much better and denies any significant symptoms She has been communicating normally and does not have any acute confusion Back to her baseline diet and activities 02/10/2023 The patient was seen and examined in telemetry unit She has been stable and does not have any significant symptoms No more confusion She definitely wanted to have Xanax to continue but oxycodone can be taken off Review of Systems Review of Systems: All systems reviewed and are unremarkable except as noted below Physical Exam Physical Exam: Lying in bed without any acute distress Constitutional: well developed, well nourished and + obese; not ill appearing Eyes: PERRL, conjunctivae normal, anicteric sclerae ENMT: external ear and nose normal, oropharynx normal Neck: trachea midline, no thyromegaly Respiratory: no respiratory distress Auscultation: + diminished lung sounds and + crackles (Minimal crackles at the bases) Cardiovascular: Rate/Rhythm: regular rate and regular rhythm; not tachycardic Heart Sounds: normal S1 and normal S2; no murmur Extremities: + edema (Trace to 1+ edema bilaterally) Gastrointestinal (Abdomen): Inspection/Auscultation: normal bowel sounds; abdomen not distended Percussion/Palpation: abdomen soft; abdomen nontender Neurologic: normal touch/pain/proprioception and moves all extremities; no focal motor deficits and not confused Psychiatric: A+Ox3, euthymic affect Lymphatic: no cervical or axillary lymphadenopathy Results & Data Results & Data Vital Signs (Past 12 Hours) Vital Signs Temp Pulse Resp BP Pulse Ox O2 Del Method 02/10/23 07:50 36.5 C 76 20 120/76 98 Room Air 02/10/23 04:04 36.6 C 70 22 114/68 95 Room Air 02/09/23 23:23 37.1 C 73 21 138/74 100 Room Air Laboratory Results Short CBC 02/10/23 Range/Units 05:54 WBC 7.35 (4.8-10.8) K/ul Hgb 9.6 L (12.0-16.0) g/dl Hct 29.8 L (37.0-47.0) % Plt Count 189 (130-400) K/uL BMP 02/10/23 05:54 Sodium 134 L Potassium 3.9 Chloride 100 Carbon Dioxide 28 BUN 9 Creatinine 0.84 Glucose 106 H Calcium 8.8 Medications Administered Current Inpatient Medications Acetaminophen (Acetaminophen 325 Mg Tab) 650 mg PO Q4H PRN PRN Reason: Pain Stop: 03/10/23 17:39 Last Admin: 02/09/23 20:57 Dose: 650 mg Albuterol (Albuterol Hfa 8 Gm Inhaler) 2 puffs INH Q6 PRN PRN Reason: Shortness Of Breath Or Wheezin Stop: 03/10/23 00:36 Last Admin: 02/08/23 18:30 Dose: 2 puffs Aripiprazole (Aripiprazole 1 Mg/Ml Oral Soln 150 Ml Btl) 2 mg PO DAILY ANGELLA Stop: 03/10/23 08:59 Last Admin: 02/10/23 08:54 Dose: 2 mg Aspirin (Aspirin 81 Mg Ectab) 81 mg PO DAILY ANGELLA Stop: 03/10/23 08:59 Last Admin: 02/10/23 08:54 Dose: 81 mg Atorvastatin Calcium (Atorvastatin 40 Mg Tab) 40 mg PO DAILY ANGELLA Stop: 03/10/23 08:59 Last Admin: 02/10/23 08:55 Dose: 40 mg Dextrose (Dextrose 50% 50 Ml Syringe) 25 - 50 ml IV UD PRN; Protocol PRN Reason: Hypoglycemia Protocol Stop: 03/10/23 00:36 Dicyclomine HCl (Dicyclomine Hcl 20 Mg Tab) 10 mg PO QID PRN PRN Reason: .Irritable bowel Stop: 03/10/23 00:36 Last Admin: 02/10/23 08:57 Dose: 10 mg Docusate Sodium (Docusate Sodium 100 Mg Cap) 100 mg PO BID [facility] Stop: 03/10/23 08:59 Last Admin: 02/10/23 08:49 Dose: 100 mg Ergocalciferol (Ergocalciferol 50,000 Units 1250 Mcg Cap) 50,000 units PO Th@0900 [facility] Stop: 03/15/23 08:59 Famotidine (Famotidine 40 Mg Tablet) 40 mg PO DAILY [facility] Stop: 03/10/23 08:59 Last Admin: 02/10/23 08:55 Dose: 40 mg Fluticasone Furoate (Fluticasone Furoate 100mcg 14 Puffs/Inhaler) 1 puffs INH DAILY [facility] Stop: 03/10/23 08:59 Last Admin: 02/10/23 08:47 Dose: 1 puffs Fluticasone Propionate (Fluticasone Propionate Na Spr 16 Gm Btl) 2 sprays NA DAILY [facility] Stop: 03/10/23 08:59 Last Admin: 02/10/23 09:01 Dose: 2 sprays Gabapentin (Gabapentin 300 Mg Cap) 300 mg PO Q12 [facility] Stop: 03/10/23 08:59 Last Admin: 02/10/23 08:54 Dose: 300 mg Glucagon (Glucagon For Inj 1 Mg Vial) 1 mg SQ UD PRN; Protocol PRN Reason: Hypoglycemia Protocol Stop: 03/10/23 00:36 Glucose (Glucose 10 Tab/Tube) 4 - 8 tab PO UD PRN; Protocol PRN Reason: Hypoglycemia Treatment Stop: 03/10/23 00:36 Glucose (Glucose 40% Gel 15 Gm Tube) 15 - 30 gm PO UD PRN; Protocol PRN Reason: Hypoglycemia Protocol Stop: 03/10/23 00:36 Ceftriaxone Sodium 2,000 mg/ (Dextrose) 70 mls @ 100 mls/hr IV Q24H [facility]; Protocol Stop: 02/18/23 00:59 Last Infusion: 02/09/23 21:45 Dose: Infused Insulin Aspart (Insulin Aspart Per Unit Charge) 0 units SC ACHS [facility] Stop: 03/10/23 07:29 Last Admin: 02/10/23 08:23 Dose: Not Given Insulin Glargine (Lantus Per Unit Charge) 20 units SQ Q12 [facility] Stop: 03/10/23 08:59 Last Admin: 02/10/23 08:46 Dose: 20 units Lactulose (Lactulose Syrup 30 Gm/45 Ml Udp) 30 gm PO TID [facility] Stop: 03/10/23 08:59 Last Admin: 02/10/23 09:03 Dose: 30 gm Lamotrigine (Lamotrigine 25 Mg Tab) 25 mg PO DAILY ANGELLA Stop: 03/10/23 08:59 Last Admin: 02/10/23 09:03 Dose: 25 mg Lamotrigine (Lamotrigine 25 Mg Tab) 50 mg PO QPM ANGELLA Stop: 03/10/23 20:59 Last Admin: 02/09/23 20:57 Dose: 50 mg Levothyroxine Sodium (Levothyroxine Sodium 88 Mcg Tablet) 88 mcg PO DAILYBB [facility] Stop: 03/10/23 06:29 Last Admin: 02/10/23 05:22 Dose: 88 mcg Methenamine Hippurate (Methenamine Hippurate 1 Gm Tab) 1 gm PO BID [facility] Stop: 03/10/23 08:59 Last Admin: 02/10/23 08:56 Dose: 1 gm Metoprolol Succinate (Metoprolol Succ 25mg Ext Rel Tab) 25 mg PO DAILY [facility] Stop: 03/10/23 08:59 Last Admin: 02/10/23 08:54 Dose: 25 mg Miscellaneous (Carbohydrates For Hypoglycemia ) 15 - 30 gm PO UD PRN PRN Reason: Hypoglycemia Protocol Stop: 03/10/23 00:36 Montelukast Sodium (Montelukast Sodium 10 Mg Tablet) 10 mg PO DAILY [facility] Stop: 03/10/23 08:59 Last Admin: 02/10/23 08:58 Dose: 10 mg Nitroglycerin (Nitroglycerin Sl 0.4 Mg/Tab Tab) 0.4 mg SL Q5M PRN PRN Reason: Chest Pain Stop: 03/10/23 00:36 Nystatin (Nystatin Susp 500,000 U/5 Ml Udc) 5 ml PO QID [facility] Stop: 02/18/23 08:59 Last Admin: 02/10/23 08:58 Dose: 5 ml Ondansetron HCl (Ondansetron Inj 2 Mg/Ml 2 Ml Vial) 4 mg IV Q6H PRN PRN Reason: Nausea And Vomiting Stop: 03/10/23 17:44 Last Admin: 02/08/23 18:11 Dose: 4 mg Oxybutynin Chloride (Oxybutynin Chloride Xl 5 Mg Tabcr) 5 mg PO DAILY [facility] Stop: 03/10/23 08:59 Last Admin: 02/10/23 08:57 Dose: 5 mg Pantoprazole Sodium (Pantoprazole 40 Mg Tab) 40 mg PO BID ANGELLA Stop: 03/10/23 08:59 Last Admin: 02/10/23 08:53 Dose: 40 mg Polyethylene Glycol (Polyethylene (Miralax) 17 Gm Pack) 17 gm PO DAILY PRN PRN Reason: Constipation Stop: 03/10/23 00:36 Potassium Chloride (Potassium Chloride Crtab 20 Meq Tabcr) 20 meq PO DAILY ANGELLA Stop: 03/10/23 08:59 Last Admin: 02/10/23 09:03 Dose: 20 meq Rifaximin (Rifaximin 550 Mg Tablet) 550 mg PO Q12 ANGELLA Stop: 03/10/23 08:59 Last Admin: 02/10/23 08:59 Dose: 550 mg Spironolactone (Spironolactone 25 Mg Tab) 50 mg PO BID17 ANGELLA Stop: 03/10/23 08:59 Last Admin: 02/10/23 08:59 Dose: 50 mg Sucralfate (Sucralfate 1 Gm Tab) 1 gm PO DAILY ANGELLA Stop: 03/10/23 08:59 Last Admin: 02/10/23 08:59 Dose: 1 gm Tamsulosin HCl (Tamsulosin Hcl 0.4 Mg Cap) 0.4 mg PO DAILY ANGELLA Stop: 03/10/23 08:59 Last Admin: 02/10/23 08:55 Dose: 0.4 mg Torsemide (Torsemide 20 Mg Tab) 20 mg PO DAILY ANGELLA Stop: 03/10/23 08:59 Last Admin: 02/10/23 08:57 Dose: 20 mg Umeclidinium/Vilanterol (Umeclidinium/Vilanterol 62.5/25mcg 7 Puffs/Inhaler) 1 puffs INH DAILY ANGELLA Stop: 03/10/23 08:59 Last Admin: 02/10/23 08:48 Dose: 1 puffs Venlafaxine HCl (Venlafaxine Hcl Xr 150 Mg Capxr) 150 mg PO DAILY ANGELLA Stop: 03/10/23 08:59 Last Admin: 02/10/23 08:56 Dose: 150 mg Venlafaxine HCl (Venlafaxine Hcl Xr 75 Mg Capxr) 75 mg PO DAILY ANGELLA Stop: 03/10/23 08:59 Last Admin: 02/10/23 09:00 Dose: 75 mg
--- NOTE | 2023-02-11 17:18 | Discharge Summary ---
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 When patient came to the ER she was just daily not talking but later she was able to converse. CT head is okay. UA slightly positive. Ammonia is pending. Currently patient is alert and awake and oriented x3 able to give history but answering very slowly and takes time to understand the questions. Denies any headache. No earache. Vision is okay. Has some runny nose and sore throat. Has some cough. Denies chest pain or shortness of breath. No nausea. Has some abdominal pain. States he moved bowels twice today. And micturating fine. Hemodynamics are okay. Admission Exam Per Admitting Provider Physical Exam: General- Not in distress. Head- atraumatic Eyes- PERRL ENT- oropharynx clear Neck- supple, no JVD. Lungs- clear to auscultation and percussion no added sounds Heart- regular rate and rhythm; no murmur, no gallop. Abdomen- normal bowel sounds, soft, mid diffuse tenderness present. Extremities- Left lower extremity in brace, pedal edema present. Neuro- alert, oriented x 3; PERRL no facial palsy; no dysarthria; slow to answer but insight ok.obeys commands Skin- warm & dry Principal Diagnosis Change in mental status likely secondary to use of narcotic, left femoral fracture status post fall, [place] cirrhosis, history of CAD status post CABG, type 2 diabetes Discharge Exam Lying in bed without any acute distress Constitutional well developed, well nourished and + obese; not ill appearing Eyes PERRL, conjunctivae normal, anicteric sclerae ENMT external ear and nose normal, oropharynx normal Neck trachea midline, no thyromegaly Respiratory no respiratory distress Auscultation: + diminished lung sounds and + crackles (Minimal crackles at the bases) Cardiovascular Rate/Rhythm: regular rate and regular rhythm; not tachycardic Heart Sounds: normal S1 and normal S2; no murmur Extremities: + edema (Trace to 1+ edema bilaterally) Gastrointestinal (Abdomen) Inspection/Auscultation: normal bowel sounds; abdomen not distended Percussion/Palpation: abdomen soft; abdomen nontender Neurologic normal touch/pain/proprioception and moves all extremities; no focal motor deficits and not confused Psychiatric A+Ox3, euthymic affect Lymphatic no cervical or axillary lymphadenopathy Discharge Data Allergies Allergy/AdvReac Type Severity Reaction Status Date / Time propoxyphene Allergy Intermediate Rash Verified 02/07/23 23:43 fentanyl AdvReac Intermediate PANIC Verified 02/07/23 23:43 WANTS TO RUN AND AGGRESSIVE methocarbamol AdvReac Intermediate DELERIUM Verified 02/07/23 23:43 zolpidem AdvReac Intermediate confusion Verified 02/07/23 23:43 Consultations 02/07/23 22:13 ED Decision to Admit Stat 02/09/23 09:52 Consult Orthopedic Surgery Routine Ordered Studies 02/07/23 20:11 CT head/brain wo con Stat Hospital Course (1) Encephalopathy: 72-year-old female past past medical history significant for 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 Encephalopathy-likely secondary to polypharmacy with pain medication Apparently took oxycodone to control pain before she was less responsive and confused as per the chart CT head okay, abg and ammonia levels and lactic acid levels ok, cr ok. Possible UTI-UA has been negative, urine and blood cultures are pending recent imaging studies no ascites Empiric IV Rocephin and follow the cultures Close monitoring telemetry floor Clinically much better during my examination this morning No more confusion and she has not been getting any narcotics and/or benzodiazepines Strongly advised not to use any more narcotics for pain and will stop benzodiazepines on discharge She is agreeable to be discharged without oxycodone but definitely wanted to have benzodiazepines to continue This was discussed with the daughter in detail She will be discharged to [facility] this afternoon Left femoral fracture status post fall Left femur open reduction and internal fixation on 02/02/2023 Has been getting pain medications with oxycodone Change in mental status possibly from narcotics pain medications as patient recently had left femur surgery Hold narcotic pain medications and klonopin and trazadone Discussed with the patient about discontinuation of the pain medications with narcotics Agreeable to reduce the doses by half Discussed with the Ortho and they will keep the recommendation for dressing Advised to keep appointment with the Ortho as an outpatient as planned before History of [place] cirrhosis We will monitor for volume overload We will continue torsemide, spironolactone, rifaximin, lactulose follow labs.-Ammonia level remains normal Please keep taking lactulose to make sure you have at least 2 bowel movements regularly to avoid and cephalopathy History of CAD s/p CABG Moderate AAS Continue statin and aspirin Questionable reactive airway disease Continue home inhalers Type 2 diabetes Gastroparesis Neuropathy on gabapentin We will hold trulicity Lantus and sliding scale we will follow blood sugars Anxiety Depression Bipolar disorder Continue home medications Hypothyroidism Synthyroid Chronic back pain We will hold pain medications for now Hyponatremia Na 130 will follow labs. DVT prophylax SCDs Disposition telemetry floor Full code Likely discharge on Friday Try to talk to the daughters but not available Be discharged to [facility] this afternoon that is 02/10/2023 Total Time Total Time Spent Total Time Spent (In Minutes): 35 minutes Discharge Plan Discharge Items Patient Disposition: Transfer Inpatient Rehab Fac Reason For Visit: ALTERED MENTAL STATUS Discharge Diagnosis: Change in mental status likely secondary to use of narcotic, left femoral fracture status post fall, [place] cirrhosis, history of CAD status post CABG, type 2 diabetes Condition on Discharge: Good Activity: As commented below Activity Comment: Continue PT and OT Non-emergency contact: Primary Care Provider Call non-emergency contact if: you have any medication questions and your symptoms worsen Follow-up/Referrals: Brian Domínguez MD [Primary Care Provider] - (Please make an appointment with your primary care provider within 7 days following discharge from the facility) Diet: Carb Consistent or DM2 Addtl Attending Provider Instructions: Please take precautions to avoid falls Narcotics pain medications have been discontinued Addtl [employer] Provider Instructions: [facility] DISCHARGE INSTRUCTIONS: HIP FRACTURE SELF CARE INSTRUCTIONS: A. You are to ambulate with a walker or crutches for approximately 6 weeks. B. You areWEIGHT BEARING TOLERATEDon your operative lower extremity for at least 6 weeks. C. Wear low heeled shoes with non-slip soles D. Be sure that your floors are free of things that could trip you throw rugs, electrical cords, and small objects. Avoid wet and waxed floors, especially with crutches/walker/cane. E. Try to walk several times a day with rest periods between. F. You may shower 48 hours after surgery and get the incision area wet, butDO NOTsoak or submerge incision area in water. (No baths, swimming pools, hot tubs) G. You may have a large, band-aid like dressing over your incision (Aquacel). This will remain on your incision for 7 days, and then can be removed. YouCANshower with this on. If incision is leaking through the dressing, please call the office . H. DoNOTapply soap or any ointment/lotions directly over incision. I. You may use ice as needed to operative site. SPECIAL CARE INSTRUCTIONS: VERY IMPORTANT TO READ AND REVIEW A. You may be at risk for phlebitis or blood clots. a. Wear surgical stockings (ELINA hose) for 2 weeks after surgery to improve circulation and reduce swelling. b. [id number] mg po BID for 4 weeks or as directed. This is your blood thinner. B. There are a few signs you need to watch for after you are home. Call [facility] at [phone] if you experience any of the following: a. If you have a temperature of 101 degrees or higher. b. Sudden increase in pain in your hip not relieved by rest or pain medication. c. Any fluid or drainage from the incision; redness of the incision. d. Shortness of breath or chest pain. C. Pain Medication: a. You will be prescribed pain medication upon discharge that should last till your first post-operative appointment. b. If you experience nausea and/or skin rash, discont inue this medication and contact our office for an alternative medication. c. Caution- narcotic pain medication can cause constipation. FOLLOW UP VISIT: Please call [facility] at [phone] to schedule a follow up appointment 10-14 days from the date of your surgery date. Pending Studies at Discharge: No Stand-Alone Forms: [facility] Skilled Items Patient informed of condition?: Yes DNR: No Discharge Level of Care: Acute rehab Communicable Disease: No Discharge Prognosis: Stable Lines: None Urinary Catheter: Yes Medications and DC Order Prescriptions: Continued atorvastatin 40 mg Tablet 40 mg PO DAILY nystatin 100,000 unit/mL suspension 5 ml PO DIRECTED Rx Instructions: QID START 02/06/23-02/09/23 insulin glargine [Lantus U-100 Insulin] 100 unit/mL Solution 20 unit SUBCUT Q12 torsemide 20 mg tablet 20 mg PO DAILY trazodone 50 mg Tablet 50 mg PO HS polyethylene glycol 3350 [Miralax] 17 gram Powder In Packet 17 g PO DAILY PRN (Reason: Constipation) Rx Instructions: GIVE @ LUNCH sucralfate 1 gram Tablet 1 g PO DAILY ondansetron HCl 4 mg Tablet 4 mg PO Q4 PRN (Reason: Nausea) clonazepam 0.5 mg tablet 0.25 mg PO Q8 sennosides-docusate sodium [Senokot-S] 8.6-50 mg Tablet 1 tab-cap PO .QLUNCH PRN (Reason: Constipation) venlafaxine 150 mg capsule,extended release 24hr 150 mg PO DAILY acetaminophen [Tylenol Extra Strength] 500 mg Tablet 500 mg PO Q4 Rx Instructions: START 02/07/23 spironolactone 25 mg Tablet 50 mg PO BID lamotrigine [Lamictal] 25 mg Tablet 25 mg PO DAILY Rx Instructions: START 02/07/23 lamotrigine [Lamictal] 25 mg Tablet 50 mg PO QPM levothyroxine 88 mcg tablet 88 mcg PO QAM methenamine hippurate 1 gram tablet 1 g PO BID potassium chloride [Klor-Con M20] 20 mEq tablet,ER particles/crystals 20 meq PO DAILY famotidine 20 mg Tablet 40 mg PO DAILY tamsulosin 0.4 mg Capsule 0.4 mg PO DAILY dicyclomine 20 mg Tablet 10 mg PO QID PRN (Reason: .Irritable bowel) pantoprazole 40 mg tablet,delayed release (DR/EC) 40 mg PO BID Humulin R Regular U-100 Insuln 100 unit/mL Solution 1 sliding scale dose SUBCUT USEASDIRECTD Rx Instructions: PER SLIDING SCASLE nitroglycerin [Nitrostat] 0.4 mg Tablet, Sublingual 0.4 mg sublingual DIRECTED Rx Instructions: Q 5 MIN PRN docusate sodium 100 mg Capsule 100 mg PO BID oxybutynin chloride 5 mg Tablet Extended Release 24hr 5 mg PO DAILY gabapentin 300 mg Capsule 300 mg PO Q12 montelukast 10 mg tablet 10 mg PO DAILY metoprolol succinate 25 mg Tablet Extended Release 24 Hr 25 mg PO DAILY ergocalciferol (vitamin D2) [Vitamin D2] 1,250 mcg (50,000 unit) Capsule 1,250 mcg PO .Q THUR Rx Instructions: START 02/13/23 albuterol sulfate 90 mcg/actuation Hfa Aerosol Inhaler 2 inh INHALATION Q6 PRN (Reason: Shortness Of Breath Or Wheezing) fluticasone propionate [Flonase Allergy Relief] 50 mcg/actuation [place],Suspension 2 spray INTRANASAL DAILY Rx Instructions: administer into each nostril lamotrigine [Lamictal] 100 mg Tablet 100 mg PO DAILY Rx Instructions: START 02/07/23 aripiprazole 2 mg Tablet 2 mg PO DAILY venlafaxine 75 mg Tablet Extended Release 24hr 75 mg PO DAILY Xifaxan 550 mg tablet 550 mg PO Q12 lactulose 20 gram/30 mL Solution 30 g PO TID Trelegy Ellipta 100-62.5-25 mcg Blister With Device 1 inh INHALATION DAILY Rx Instructions: START 02/07/23 Trulicity 4.5 mg/0.5 mL pen injector 4.5 mg SUBCUT .Q MON Rx Instructions: Start 02/10/23 Changed aspirin 81 mg Tablet,Delayed Release (Dr/Ec) 81 mg PO BID Qty: 1 0RF Rx Instructions: Continue 2 times daily twice daily for about 38 days and then go back to once a day Discontinued morphine 15 mg tablet extended release 15 mg PO HS PRN (Reason: Pain) Rx Instructions: May request lower dose/ less potent,PRN PAIN, SCALE 7-10 oxycodone 5 mg tablet 5 mg PO Q8 PRN (Reason: PAIN 4-6) Discharge Orders: Discharge Order (Routine); Ordered 02/10/23 Ordered By: David Chery Admission Data Admit Date/Time: 02/07/23 23:12 Attending Provider: David Chery Admit Provider: Calderon Heller Primary Care Provider: Brian Domínguez Other Providers: Calderon Heller ; [facility] ; Tommie Ruiz Other Interventions: Discharge Summary Assessment (RN) Last Done: 02/10/23 13:41
[2023-02-13] MEDS ORDERED: ERGOCALCIFEROL 50,000 UNITS 1250 MCG CAP PO SCH (09:00)
== END 2023-02-10 14:41 | DRG 92 ==
LOC: ED 19:41 → 2S 23:12

== ENCOUNTER 2023-05-12 16:11 | Inpatient (IN) ==
[2023-05-12 17:08] LABS: Basophils # (auto) 0.06 K/uL (0.00-0.20); Basophils % (auto) 0.7 %; Eosinophils # (auto) 0.28 K/uL (0.00-0.50); Eosinophils % (auto) 3.4 %; Hematocrit (blood only) 35.9 % (37.0-47.0); Hemoglobin 12.1 g/dl (12.0-16.0); Immature Granulocytes # (auto) 0.06 K/uL (0.01-0.20); Immature Granulocytes % (auto) 0.7 %; Lymphocytes # (auto) 2.41 K/uL (1.20-3.40); Mean Corpuscular Hemoglobin 27.6 pg (25.0-34.0); Mean Corpuscular Hgb Conc 33.7 g/dL (32.0-36.0); Mean Platelet Volume 11.6 fL (9.4-12.4); Monocytes # (auto) 0.64 K/uL (0.11-0.59); Monocytes % (auto) 7.7 %; Neutrophils # (auto) 4.85 K/uL (1.40-6.50); Neutrophils % (auto) 58.5 %; Platelet Count 103 K/uL (130-400); RDW Coefficient of Variation 14.7 % (11.5-14.5); RDW Standard Deviation 44.5 fL (36.4-46.3); Red Blood Count 4.38 M/uL (4.20-5.40)
--- NOTE | 2023-05-12 17:15 | Emergency Department Note ---
Impression & Plan Acute confusion, Non-ST elevation AK (NSTEMI) ED Provider Note HISTORY OF PRESENT ILLNESS: Patient is a 72-year-old female presenting with confusion. Family member at bedside provides history. Reports that the patient has been having intermittent episodes of confusion over the last 5 to 6 days. Patient did recently start cefepime for complicated UTI starting 6 days ago. Family member reports that the patient will have episodes in which she does not know who she is and is speaking nonsensically. She also has been having intermittent episodes of being very aggressive. No recent falls. Patient has recently had left femur fracture surgery and has 24-hour nursing care at home. No reported fevers. She has a Gallagher catheter in place that was placed 6 weeks ago. She currently has a PICC line in her right forearm getting ertapenem and cefepime IV treatments. No reported nausea, vomiting or diarrhea. ROS: as above PHYSICAL EXAM: Constitutional: Patient appears in no acute distress. HENT: Head: Normocephalic and atraumatic. Eyes: EOMI, PERRL Mouth/Throat: Mucous membranes moist. Neck: Trachea midline. Neck supple. Cardiovascular: RRR, No murmurs, rubs or gallops. Intact distal pulses. Pulmonary/Chest: No respiratory distress. Breath sounds clear and equal bilaterally. No wheezes or rales. Abdominal: Abdomen soft, no tenderness, rebound or guarding. Musculoskeletal: No edema, tenderness or deformity noted. PICC line in right upper arm. Skin: Warm and dry. No rash, erythema, pallor or cyanosis Psychiatric: Appropriate mood and affect for situation. Neurological: Alert and keenly responsive. CN II-XII grossly intact, moving all extremities equally and fully. MDM: - Vitals signs stable. - History obtained via patient's family, given patient's confusion. Patient presents with intermittent episodes of confusion. Family reports that the patient has been having episodes of confusion over the last 5 to 6 days. She did recently transition from ertapenem to cefepime for complicated UTI starting 6 days ago. Family reports that the patient will have episodes in which she does not know who she is or speaks nonsensically. She is also had episodes of intermittent aggression. No recent falls or head injuries. No recent fevers. - Chronic conditions affecting care: UTI; chronic pain syndrome; GONZALEZ; anxiety/depression; DM-2; CAD (s/p CABG and PCI); hypothyroidism; HLD - Differential diagnoses include, but are not limited to: UTI; electrolyte abnormality; pneumonia; ACS; intracranial hemorrhage; CVA - Order placed for continuous cardiac monitoring. At this time, monitor showed rate of 72 bpm with normal sinus rhythm, per my interpretation. - External medical records reviewed. EMS run sheet reviewed. Patient was vitally stable in route. - EKG reviewed by myself showed normal sinus rhythm. Rate 72 bpm. QTc 448. No acute ischemic changes. Noted to have incomplete right bundle branch block. - Laboratory workup interpreted by myself showed normal WBC; hyponatremia (Na 130);; normal lactate; normal ammonia; CKD (Cr 1.37); elevated troponin (22.7) - CXR negative for pneumonia, per my interpretation - Repeat troponin trending upward to 25.8. - CT head wo contrast negative for acute intracranial hemorrhage, per my interpretation. - UA negative for infection - Unclear etiology for patient's symptoms at this time. May be secondary to her recent change of medication from ertapenem to cefepime. Family expresses concern about her going home given her continued episodes of confusion. - Discussion was had with social psychologist about patient's case and need for admission - Hospitalist consulted for admission - Patient admitted to [facility] for further evaluation and management. ASSESSMENT AND PLAN: Diagnosis: Confusion; NSTEMI Plan: admit Past Med/Surg History Medical History Fracture of femur, distal, left, closed Cardiac arrest pt states she was told she went into cardiac arrest during her hip surgery in 02/2022 at [facility] and was "revived". no other details were given. Palpitations occasionally -- pt states since her metoprolol has been decreased. Cough started about 8 months ago s/p covid-19 virus -- currently treating with augmentin PO bid and prednisone. prednisone to end 05/27/22 and abx to finish on 06/01/22 Hx of fall pt. fell in the bathroom at home, pt. wasn't aware of what happen but was told this by her family 02/05/2022 Left hip pain Left hip hemiarthroplasty 02/05/2022 Chronic low back pain History of anesthesia reaction REMOTE HX, SIDE EFFECTS : ANXIETY AND SEVERE N/V History of COVID-19 nov or june 2021, has cough since. SOB (shortness of breath) SINCE COVID 19/ 6-8 MON AGO, SOB, COUGH...NO DX...HAS VISIT WITH PULM UPCOMING TO EVALUATE Urinary incontinence UTI (urinary tract infection) FREQUENT/PREVENTATIVE ABX'S CURRENTLY MOST RECENT UTI JANUARY 04 - ABX COMPLETE - ON CURRENT PROPHYLACTIC TX Encephalopathy d/c from [facility] 09/20/19 (hepatic encephalopathy) Irregular heart beat follows Dr. 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 Lemus LEG WEAKNESS CURRENT PT/OT FOR - BRACES B/L LEGS Gastroparesis Portal hypertensive gastropathy GONZALEZ (nonalcoholic steatohepatitis) Moderate aortic stenosis Chronic diastolic CHF (congestive heart failure) Hypertension CAD (coronary artery disease) History of multiple PCI's to the RCA with subsequent CABG x1 in 2010 x 1 vessel Most recent cardiac testing-negative DSE in December 2017 Follows w/ Dr. Blackwell and Dr. Lucas DM type 2 (diabetes mellitus, type 2) IDDM Hypothyroidism Dyslipidemia Surgical History History of left hip replacement 02/05/2022 History of cataract surgery RT History of esophagogastroduodenoscopy (EGD) History of colonoscopy History of heart artery stent 2 yrs ago @ [facility] > 6 or 7 stents > follows Dr. Lucas History of cardiac cath multiple - most recent - 2 years ago @ [facility] S/P CABG x 1 2010 - single vessel S/P CARLOS (total abdominal hysterectomy) Hx of cholecystectomy History of back surgery sacral area History of appendectomy History of total right knee replacement Family History Father Coronary heart disease Brother Coronary heart disease Father No problems noted. Mother No problems noted. Other No family history of adverse response to anesthesia Social History (Updated 05/09/23 @ 13:29 by Madelyn Biswas, RN) Smoking Status: Never smoker Tobacco Type: Cigarettes Second Hand Exposure: Yes; Do You Dip or Chew Tobacco: No; Hx Alcohol Use: No Hx Substance Use: No Preferred Language: Norwegian Communication Ability: Effective Visual Impairment: Partially Limited Hearing Ability: Hard of Hearing [employer] Required: No Beliefs That Will Affect Care: None marital status: / Current Living Situation: Alone Current Living Situation Comment: Has 27/01 caregiver thought [facility] Family [facility] How many Children do You have: 3 Feels Safe at Home: Yes Diet: low carbohydrate and low salt caffeine: No Assistive Devices: Bedside Commode, Brace/Splint/Immobilizer, Lift Chair, Walker and Wheelchair Allergies Allergies Allergy/AdvReac Type Severity Reaction Status Date / Time propoxyphene Allergy Intermediate Rash Verified 05/09/23 13:18 fentanyl AdvReac Intermediate PANIC Verified 05/09/23 13:18 WANTS TO RUN AND AGGRESSIVE methocarbamol AdvReac Intermediate DELERIUM Verified 05/09/23 13:18 zolpidem AdvReac Intermediate confusion Verified 05/09/23 13:18 Home Meds Home Medications Medication Instructions Recorded Confirmed albuterol sulfate 90 mcg/actuation 2 inh inhalation Q6 PRN Shortness 02/07/23 05/12/23 aerosol inhaler Of Breath Or Wheezing aripiprazole 2 mg tablet 2 mg PO QAM 02/07/23 05/12/23 atorvastatin 40 mg tablet 40 mg PO QAM 02/07/23 05/12/23 clonazepam 0.5 mg tablet 0.5 mg PO TID 02/07/23 05/12/23 dulaglutide 4.5 mg/0.5 mL 4.5 mg subcut WK 02/07/23 05/12/23 subcutaneous pen injector (Trulicity) ergocalciferol (vitamin D2) 1,250 1,250 mcg PO .Q THUR 02/07/23 05/12/23 mcg (50,000 unit) capsule (Vitamin D2) famotidine 20 mg tablet 40 mg PO QAM 02/07/23 05/12/23 fluticasone propionate 50 2 spray intranasal DAILY 02/07/23 05/12/23 mcg/actuation nasal spray,suspension (Flonase Allergy Relief) gabapentin 300 mg capsule 300 mg PO BID 02/07/23 05/12/23 lactulose 20 gram/30 mL oral 30 g PO TID 02/07/23 05/12/23 solution lamotrigine 100 mg tablet 100 mg PO QAM 02/07/23 05/12/23 (Lamictal) lamotrigine 25 mg tablet (Lamictal) 25 mg PO QAM 02/07/23 05/12/23 lamotrigine 25 mg tablet (Lamictal) 50 mg PO HS 02/07/23 05/12/23 levothyroxine 88 mcg tablet 88 mcg PO QAM 02/07/23 05/12/23 methenamine hippurate 1 gram tablet 1 g PO AMHS 02/07/23 05/12/23 metoprolol succinate 25 mg 25 mg PO QAM 02/07/23 05/12/23 tablet,extended release 24 hr montelukast 10 mg tablet 10 mg PO DAILY 02/07/23 05/12/23 nitroglycerin 0.4 mg sublingual 0.4 mg sublingual DIRECTED PRN 02/07/23 05/12/23 tablet (Nitrostat) Chest Pain pantoprazole 40 mg tablet,delayed 40 mg PO AMPM 02/07/23 05/12/23 release polyethylene glycol 3350 17 gram 17 g PO DAILY PRN Constipation 02/07/23 05/12/23 oral powder packet (Miralax) potassium chloride 20 mEq 20 meq PO QAM PRN when taking 02/07/23 05/12/23 tablet,extended additional torsemide release(part/cryst) (Klor-Con M) rifaximin 550 mg tablet (Xifaxan) 550 mg PO Q12 02/07/23 05/12/23 tamsulosin 0.4 mg capsule 0.4 mg PO QAM 02/07/23 05/12/23 torsemide 20 mg tablet 20 mg PO QAM 02/07/23 05/12/23 trazodone 50 mg tablet 50 mg PO HS 02/07/23 05/12/23 venlafaxine 150 mg 150 mg PO QAM 02/07/23 05/12/23 capsule,extended release 24 hr venlafaxine 75 mg tablet,extended 75 mg PO QAM 02/07/23 05/12/23 release 24 hr insulin glargine 100 unit/mL 30 unit subcut Q12 05/09/23 05/12/23 subcutaneous solution (Lantus U-100 Insulin) ascorbic acid (vitamin C) 500 mg 500 mg PO AMHS 05/12/23 05/12/23 tablet (Vitamin C) aspirin 81 mg tablet,delayed 81 mg PO QAM 05/12/23 05/12/23 release benzonatate 100 mg capsule 100 mg PO TID PRN Cough 05/12/23 05/12/23 budesonide-formoterol HFA 160 2 puff inhalation AMHS 05/12/23 05/12/23 mcg-4.5 mcg/actuation aerosol inhaler (Symbicort) cefepime 1 gram solution for 1 g IV UD 05/12/23 05/12/23 injection dicyclomine 10 mg capsule 10 mg PO QID PRN Abdominal Pain 05/12/23 05/12/23 metformin 500 mg tablet,extended 500 mg PO QDD 05/12/23 05/12/23 release 24 hr morphine 15 mg tablet,extended 15 mg PO HS PRN Pain,severe 05/12/23 05/12/23 release nystatin 100,000 unit/gram topical 1 applic topical TID 05/12/23 05/12/23 powder (Nyamy) ondansetron HCl 8 mg tablet 8 mg PO Q8 PRN Nausea 05/12/23 05/12/23 oxybutynin chloride 10 mg 10 mg PO QAM 05/12/23 05/12/23 tablet,extended release 24 hr spironolactone 50 mg tablet 50 mg PO AMHS 05/12/23 05/12/23 Results & Data (ED) Vital Signs Vital Signs - 24 hr 05/12/23 16:21 05/12/23 16:31 05/12/23 16:53 Temperature 36.6 C Temperature Source Oral Pulse Rate 70 74 Pulse Rate [Apical] Respiratory Rate 14 13 Respiratory Effort / Characteristics Non-Labored Respiratory Depth Normal Blood Pressure 111/67 111/67 Blood Pressure [Right Arm] Blood Pressure Mean 81 81 Blood Pressure Mean [Right Arm] Pulse Oximetry 98 97 97 Oxygen Delivery Method Room Air Room Air Room Air Sepsis Recent Fever Within 48 Hours No Sepsis New/Unexplained Change in Mental Status Yes Sepsis Action Taken by Nursing No Action Required 05/12/23 16:53 05/12/23 16:53 05/12/23 17:01 Temperature Temperature Source Pulse Rate 71 Pulse Rate [Apical] 67 Respiratory Rate 20 18 Respiratory Effort / Characteristics Non-Labored Respiratory Depth Normal Blood Pressure 109/86 Blood Pressure [Right Arm] 111/67 Blood Pressure Mean 93 Blood Pressure Mean [Right Arm] 81 Pulse Oximetry 97 97 94 Oxygen Delivery Method Room Air Room Air Room Air Sepsis Recent Fever Within 48 Hours Sepsis New/Unexplained Change in Mental Status Sepsis Action Taken by Nursing 05/12/23 17:30 05/12/23 18:00 05/12/23 18:25 Temperature Temperature Source Pulse Rate 69 67 72 Pulse Rate [Apical] Respiratory Rate 17 22 Respiratory Effort / Characteristics Respiratory Depth Blood Pressure 108/68 100/65 Blood Pressure [Right Arm] Blood Pressure Mean 81 76 Blood Pressure Mean [Right Arm] Pulse Oximetry 94 95 Oxygen Delivery Method Room Air Room Air Sepsis Recent Fever Within 48 Hours Sepsis New/Unexplained Change in Mental Status Sepsis Action Taken by Nursing Laboratory Data 05/12/23 16:29 05/12/23 16:29 Lab Results 05/12/23 05/12/23 05/12/23 Range/Units 16:29 17:00 20:32 WBC 8.30 (4.8-10.8) K/ul RBC 4.38 (4.20-5.40) M/uL Hgb 12.1 (12.0-16.0) g/dl Hct 35.9 L (37.0-47.0) % MCV 82.0 (80.0-100.0) fL MCH 27.6 (25.0-34.0) pg MCHC 33.7 (32.0-36.0) g/dL RDW Std Deviation 44.5 (36.4-46.3) fL RDW Coeff of Guillermo 14.7 H (11.5-14.5) % Plt Count 103 L (130-400) K/uL MPV 11.6 (9.4-12.4) fL Immature Gran % (Auto) 0.7 % Neut % (Auto) 58.5 % Lymph % (Auto) 29.0 % Eddy % (Auto) 7.7 % Eos % (Auto) 3.4 % Baso % (Auto) 0.7 % Neut # (Auto) 4.85 (1.40-6.50) K/uL Lymph # (Auto) 2.41 (1.20-3.40) K/uL Eddy # (Auto) 0.64 H (0.11-0.59) K/uL Eos # (Auto) 0.28 (0.00-0.50) K/uL Baso # (Auto) 0.06 (0.00-0.20) K/uL Immature Gran # (Auto) 0.06 (0.01-0.20) K/uL Sodium 130 L (136-145) mmol/L Potassium 3.7 (3.5-5.1) mmol/L Chloride 97 L (98-107) mmol/L Carbon Dioxide 25 (21-32) mmol/L Anion Gap 8 (3-11) BUN 23 (6-23) mg/dl Creatinine 1.37 H (0.6-1.2) mg/dl Est Cr Clr Drug Dosing 47.2 ml/min Est GFR ( Amer) 44.2 ml/min Est GFR (Non-Af Amer) 38.2 ml/min BUN/Creatinine Ratio 16.8 (10-20) Glucose 86 (70-99(Fasting)) mg/dl Lactate 0.9 (0.4-2.0) mmol/L Calcium 9.1 (8.6-10.3) mg/dl Magnesium 1.8 (1.7-2.4) mg/dl Total Bilirubin 0.9 (0.2-1.0) mg/dl AST 19 (13-39) U/L ALT 11 (7-52) U/L Alkaline Phosphatase 118 H (34-104) U/L Ammonia 28.0 (18-72) umol/L Troponin I High Sens 22.7 H 25.8 H (0-14) pg/ml Total Protein 6.8 (6.0-8.3) gm/dl Albumin 3.7 (3.4-5.0) gm/dl Globulin 3.1 (2.5-4.0) gm/dl Albumin/Globulin Ratio 1.2 (0.9-2) TSH 1.444 (0.300-4.500) uIu/ml Urine Color Yellow Urine Appearance Clear (Clear) Urine pH 5.5 (4.5-7.5) Ur Specific [place] 1.008 (1.000-1.030) Urine Protein Negative (Negative) Urine Glucose (UA) Negative (Negative) Urine Ketones Negative (Negative) Urine Blood Negative (Negative) Urine Nitrite Negative (Negative) Urine Bilirubin Negative (Negative) Urine Urobilinogen Negative (Negative) Ur Leukocyte Esterase 1+ H (Negative) Urine WBC (Auto) 1-5 (0-5) /hpf Urine RBC (Auto) 0-4 (0-4) /hpf U Hyaline Cast (Auto) 1-5 (0-5) /lpf U Epithel Cells (Auto) 10-20 H (0-5) /lpf Urine Bacteria (Auto) Negative (Negative) Imaging Data Radiologist's Impression: Chest X-Ray 05/12/23 16:45 SINGLE VIEW CHEST CLINICAL HISTORY: Generalized weakness. FINDINGS: An AP, portable, upright chest radiograph is compared to study dated 05/02/2023. The examination is degraded by portable technique and apical lordotic positioning. The patient is status post midline sternotomy. A right- sided PICC line is unchanged in position. The heart is mildly enlarged but noting atherosclerotic calcification of the thoracic aorta. The pulmonary vasculature is noncongested. Chronic interstitial thickening and elevation of the right hemidiaphragm is similar to previous. There is bibasilar scarring/atelectasis. The lungs and pleural spaces are otherwise clear. No pneumothorax is seen. The skeletal structures are osteopenic. The bony thorax is grossly intact. Arthritic change is noted in the shoulders. IMPRESSION: No active disease in the chest. ACT 112: Negative or not required by law. Electronically signed by: Berto Snow M.D. 05/12/2023 5:34 PM Discharge Plan Visit Data Chief Complaint: Confusion ED Provider: Erinn Sin Discharge Problem: Acute confusion, Non-ST elevation AK (NSTEMI) Forms Stand Alone Forms: [facility] Prescriptions Prescriptions: No Action atorvastatin 40 mg Tablet 40 mg PO QAM torsemide 20 mg tablet 20 mg PO QAM Rx Instructions: may take 1 additional tablet as needed for swelling trazodone 50 mg Tablet 50 mg PO HS polyethylene glycol 3350 [Miralax] 17 gram Powder In Packet 17 g PO DAILY PRN (Reason: Constipation) Rx Instructions: GIVE @ LUNCH clonazepam 0.5 mg tablet 0.5 mg PO TID venlafaxine 150 mg capsule,extended release 24hr 150 mg PO QAM lamotrigine [Lamictal] 25 mg Tablet 25 mg PO QAM lamotrigine [Lamictal] 25 mg Tablet 50 mg PO HS levothyroxine 88 mcg tablet 88 mcg PO QAM methenamine hippurate 1 gram tablet 1 g PO AMHS potassium chloride [Klor-Con M20] 20 mEq tablet,ER particles/crystals 20 meq PO QAM PRN (Reason: when taking additional torsemide) famotidine 20 mg Tablet 40 mg PO QAM tamsulosin 0.4 mg Capsule 0.4 mg PO QAM pantoprazole 40 mg tablet,delayed release (DR/EC) 40 mg PO AMPM nitroglycerin [Nitrostat] 0.4 mg Tablet, Sublingual 0.4 mg sublingual DIRECTED MDD 3 tablets in 15 minutes PRN (Reason: Chest Pain) Rx Instructions: Q 5 MIN PRN chest pain. gabapentin 300 mg Capsule 300 mg PO BID montelukast 10 mg tablet 10 mg PO DAILY metoprolol succinate 25 mg Tablet Extended Release 24 Hr 25 mg PO QAM ergocalciferol (vitamin D2) [Vitamin D2] 1,250 mcg (50,000 unit) Capsule 1,250 mcg PO .Q THUR albuterol sulfate 90 mcg/actuation Hfa Aerosol Inhaler 2 inh INHALATION Q6 PRN (Reason: Shortness Of Breath Or Wheezing) fluticasone propionate [Flonase Allergy Relief] 50 mcg/actuation [place],Suspension 2 spray INTRANASAL DAILY Rx Instructions: administer into each nostril lamotrigine [Lamictal] 100 mg Tablet 100 mg PO QAM aripiprazole 2 mg Tablet 2 mg PO QAM venlafaxine 75 mg Tablet Extended Release 24hr 75 mg PO QAM Xifaxan 550 mg tablet 550 mg PO Q12 lactulose 20 gram/30 mL Solution 30 g PO TID Trulicity 4.5 mg/0.5 mL pen injector 4.5 mg SUBCUT WK Rx Instructions: take weekly on wednesdays insulin glargine [Lantus U-100 Insulin] 100 unit/mL solution 30 unit SUBCUT Q12 cefepime 1 gram recon soln 1 g IV UD morphine 15 mg tablet extended release 15 mg PO HS PRN (Reason: Pain,severe) aspirin 81 mg tablet,delayed release (DR/EC) 81 mg PO QAM oxybutynin chloride 10 mg tablet extended release 24hr 10 mg PO QAM ascorbic acid (vitamin C) [Vitamin C] 500 mg tablet 500 mg PO AMHS metformin 500 mg tablet extended release 24 hr 500 mg PO QDD spironolactone 50 mg tablet 50 mg PO AMHS budesonide-formoterol [Symbicort] 160-4.5 mcg/actuation HFA aerosol inhaler 2 puff INHALATION AMHS benzonatate 100 mg Capsule 100 mg PO TID PRN (Reason: Cough) nystatin [Nyamyc] 100,000 unit/gram powder 1 applic TOPICAL TID Rx Instructions: apply to right breast until rash resolved ondansetron HCl 8 mg tablet 8 mg PO Q8 PRN (Reason: Nausea) dicyclomine 10 mg Capsule 10 mg PO QID PRN (Reason: Abdominal Pain) Referrals Referrals: Brian Domínguez MD [Primary Care Provider] -
[2023-05-12 17:19] LABS: Appearance Urine Clear (Clear); Bacteria Urine Automated Negative (Negative); Bilirubin Urine Negative (Negative); Blood Urine Negative (Negative); Color Urine Yellow; Glucose Urine UA Negative (Negative); Ketones Urine Negative (Negative); Leukocyte Esterase Urine 1+ (Negative); Nitrite Urine Negative (Negative); Protein Urine Negative (Negative); RBC Urine Automated 0-4 /hpf (0-4); Specific Gravity Urine 1.008 (1.000-1.030); Urobilinogen Urine Negative (Negative); pH Urine 5.5 (4.5-7.5)
[2023-05-12 17:21] LABS: Albumin Globulin Ratio 1.2 (0.9-2); Albumin Level 3.7 gm/dl (3.4-5.0); BUN Creatinine Ratio 16.8 (10-20); Bilirubin,Total 0.9 mg/dl (0.2-1.0); Calcium 9.1 mg/dl (8.6-10.3); Creatinine Clr Calc Pharmacy 47.2 ml/min; Est GFR (African American) 44.2 ml/min; Est GFR (Non-African American) 38.2 ml/min; Globulin 3.1 gm/dl (2.5-4.0); Magnesium 1.8 mg/dl (1.7-2.4); Potassium 3.7 mmol/L (3.5-5.1); Total Protein 6.8 gm/dl (6.0-8.3)
[2023-05-12 17:27] LABS: Troponin I High Sensitivity 22.7 pg/ml (0-14)
--- NOTE | 2023-05-12 17:35 | XRay Report ---
SINGLE VIEW CHEST CLINICAL HISTORY: Generalized weakness. FINDINGS: An AP, portable, upright chest radiograph is compared to study dated 05/02/2023. The examin ation is degraded by portable technique and apical lordotic positioning. The patient is status post m idline sternotomy. A right-sided PICC line is unchanged in position. The heart is mildly enlarged but noting atherosclerotic calcification of the thoracic aorta. The pulmonary vasculature is noncongeste d. Chronic interstitial thickening and elevation of the right hemidiaphragm is similar to previous. T here is bibasilar scarring/atelectasis. The lungs and pleural spaces are otherwise clear. No pneumoth orax is seen. The skeletal structures are osteopenic. The bony thorax is grossly intact. Arthritic ch alondra is noted in the shoulders. IMPRESSION: No active disease in the chest. ACT 112: Negative or not required by law. Electronically signed by: Berto Snow M.D. 05/12/2023 5:34 PM
[2023-05-12 17:37] LABS: Thyroid Stimulating Hormone 1.444 uIu/ml (0.300-4.500)
--- NOTE | 2023-05-12 20:16 | History & Physical Report ---
Date of Service May 12, 2023 Assessment & Plan (1) Acute confusion: Plan Likely metabolic encephalopathy: Catheter associated UTI Patient has been confused since about 3 weeks and was found to have UTI, recently started on antibiotic - initially ertapenem then changed to cefepime last Friday [supposed to continue up to coming Friday]. Patient with worsening confusion after cefepime has been started. Admitting labs reviewed, notable for CEE over CKD Which might also contribute to her encephalopathy. Patient has been on catheter since her left femur fracture. Last Gallagher catheter change about a month ago per patient's daughter. Change Gallagher catheter, change cefepime to Zosyn. head CT pending. CEE over CKD stage IIIa: Admitting creatinine elevated, baseline creatinine around 0.8, IV fluid with NS at 50 mils an hour. Encourage p.o. intake. Hold nephrotoxic's including diuretics and MADELINE inhibitors. Mild hyponatremia: Patient's sodium level low at baseline, is slightly lower than her baseline at presentation, likely secondary to poor appetite prior to arrival. Expect to improve with improving appetite and mentation. BMP in AM. Other chronic medical conditions: Continue with/resume home meds as and when able. Neuropsychotropic meds and nephrotoxic meds on hold. DVT prophylaxis: Heparin subcu Full code History of Present Illness Chief Complaint: Worsening confusion Primary Care Provider: Brian Domínguez MD 72-year-old female with PMH of T2DM with neuropathy and gastroparesis on insulin, HLD, hypothyroidism, CKD stage IIIa, CAD, CABG, [place] cirrhosis, anxiety, bipolar disorder, recurrent UTI who was admitted in the hospital for fall/left femoral fracture/status post ORIF on February 02, 2023 and has been on Gallagher catheter since then and is nonweightbearing until Ortho f/u; presented to the ED with concern of worsening confusion/hallucination. Per patient's daughter, she had very foul smelling urine about 3 weeks ago, urine culture was obtained as an outpatient, was initially started on Merope nem, and when the growth finalized she was changed to cefepime. She has been slightly confused since about 3 weeks which got worsened after changing her antibiotic to cefepime per patient's daughter at bedside. Her appetite has also gone down since last few days. Reports cough with clear sputum. Otherwise no fever/headache/dizziness/chest pain/palpitations/abdominal pain/pain at prior operative site. patient has been sleepy, confused, hallucinating more lately. Per patient's daughter, last Gallagher catheter change was a month ago. Denies a smoking/using alcohol/using recreational drug. Full code Medications reviewed with the patient and her daughter at bedside. Plan of care discussed with the patient and her daughter at bedside, they voiced understanding and were agreeable to the plan of care. Allergies Allergy/AdvReac Type Severity Reaction Status Date / Time propoxyphene Allergy Intermediate Rash Verified 05/09/23 13:18 fentanyl AdvReac Intermediate PANIC Verified 05/09/23 13:18 WANTS TO RUN AND AGGRESSIVE methocarbamol AdvReac Intermediate DELERIUM Verified 05/09/23 13:18 zolpidem AdvReac Intermediate confusion Verified 05/09/23 13:18 Home Medications Medication Instructions Recorded Confirmed Type albuterol sulfate 90 mcg/actuation 2 inh inhalation Q6 PRN Shortness 02/07/23 05/12/23 History aerosol inhaler Of Breath Or Wheezing aripiprazole 2 mg tablet 2 mg PO QAM 02/07/23 05/12/23 History atorvastatin 40 mg tablet 40 mg PO QAM 02/07/23 05/12/23 History clonazepam 0.5 mg tablet 0.5 mg PO TID 02/07/23 05/12/23 History dulaglutide 4.5 mg/0.5 mL 4.5 mg subcut WK 02/07/23 05/12/23 History subcutaneous pen injector (Trulicity) ergocalciferol (vitamin D2) 1,250 1,250 mcg PO .Q THUR 02/07/23 05/12/23 History mcg (50,000 unit) capsule (Vitamin D2) famotidine 20 mg tablet 40 mg PO QAM 02/07/23 05/12/23 History fluticasone propionate 50 2 spray intranasal DAILY 02/07/23 05/12/23 History mcg/actuation nasal spray,suspension (Flonase Allergy Relief) gabapentin 300 mg capsule 300 mg PO BID 02/07/23 05/12/23 History lactulose 20 gram/30 mL oral 30 g PO TID 02/07/23 05/12/23 History solution lamotrigine 100 mg tablet 100 mg PO QAM 02/07/23 05/12/23 History (Lamictal) lamotrigine 25 mg tablet (Lamictal) 25 mg PO QAM 02/07/23 05/12/23 History lamotrigine 25 mg tablet (Lamictal) 50 mg PO HS 02/07/23 05/12/23 History levothyroxine 88 mcg tablet 88 mcg PO QAM 02/07/23 05/12/23 History methenamine hippurate 1 gram tablet 1 g PO AMHS 02/07/23 05/12/23 History metoprolol succinate 25 mg 25 mg PO QAM 02/07/23 05/12/23 History tablet,extended release 24 hr montelukast 10 mg tablet 10 mg PO DAILY 02/07/23 05/12/23 History nitroglycerin 0.4 mg sublingual 0.4 mg sublingual DIRECTED PRN 02/07/23 05/12/23 History tablet (Nitrostat) Chest Pain pantoprazole 40 mg tablet,delayed 40 mg PO AMPM 02/07/23 05/12/23 History release polyethylene glycol 3350 17 gram 17 g PO DAILY PRN Constipation 02/07/2305/12 History oral powder packet (Miralax) potassium chloride 20 mEq 20 meq PO QAM PRN when taking 02/07/23 05/12/23 History tablet,extended additional torsemide release(part/cryst) (Klor-Con M) rifaximin 550 mg tablet (Xifaxan) 550 mg PO Q12 02/07/23 05/12/23 History tamsulosin 0.4 mg capsule 0.4 mg PO QAM 02/07/23 05/12/23 History torsemide 20 mg tablet 20 mg PO QAM 02/07/23 05/12/23 History trazodone 50 mg tablet 50 mg PO HS 02/07/23 05/12/23 History venlafaxine 150 mg 150 mg PO QAM 02/07/23 05/12/23 History capsule,extended release 24 hr venlafaxine 75 mg tablet,extended 75 mg PO QAM 02/07/23 05/12/23 History release 24 hr insulin glargine 100 unit/mL 30 unit subcut Q12 05/09/23 05/12/23 History subcutaneous solution (Lantus U-100 Insulin) ascorbic acid (vitamin C) 500 mg 500 mg PO AMHS 05/12/23 05/12/23 History tablet (Vitamin C) aspirin 81 mg tablet,delayed 81 mg PO QAM 05/12/23 05/12/23 History release benzonatate 100 mg capsule 100 mg PO TID PRN Cough 05/12/23 05/12/23 History budesonide-formoterol HFA 160 2 puff inhalation AMHS 05/12/23 05/12/23 History mcg-4.5 mcg/actuation aerosol inhaler (Symbicort) cefepime 1 gram solution for 1 g IV UD 05/12/23 05/12/23 History injection dicyclomine 10 mg capsule 10 mg PO QID PRN Abdominal Pain 05/12/23 05/12/23 History metformin 500 mg tablet,extended 500 mg PO QDD 05/12/23 05/12/23 History release 24 hr morphine 15 mg tablet,extended 15 mg PO HS PRN Pain,severe 05/12/23 05/12/23 History release nystatin 100,000 unit/gram topical 1 applic topical TID 05/12/23 05/12/23 History powder [place] [place] ondansetron HCl 8 mg tablet 8 mg PO Q8 PRN Nausea 05/12/23 05/12/23 History oxybutynin chloride 10 mg 10 mg PO QAM 05/12/23 05/12/23 History tablet,extended release 24 hr spironolactone 50 mg tablet 50 mg PO AMHS 05/12/23 05/12/23 History Past Med/Surg History Medical History Fracture of femur, distal, left, closed Cardiac arrest pt states she was told she went into cardiac arrest during her hip surgery in 02/2022 at [facility] and was "revived". no other details were given. Palpitations occasionally -- pt states since her metoprolol has been decreased. Cough started about 8 months ago s/p covid-19 virus -- currently treating with augmentin PO bid and prednisone. prednisone to end 05/27/22 and abx to finish on 06/01/22 Hx of fall pt. fell in the bathroom at home, pt. wasn't aware of what happen but was told this by her family 02/05/2022 Left hip pain Left hip hemiarthroplasty 02/05/2022 Chronic low back pain History of anesthesia reaction REMOTE HX, SIDE EFFECTS : ANXIETY AND SEVERE N/V History of COVID-19 may or june 2021, has cough since. SOB (shortness of breath) SINCE COVID -8 MON AGO, SOB, COUGH...NO DX...HAS VISIT WITH PULM UPCOMING TO EVALUATE Urinary incontinence UTI (urinary tract infection) FREQUENT/PREVENTATIVE ABX'S CURRENTLY MOST RECENT UTI JANUARY 04 - ABX COMPLETE - ON CURRENT PROPHYLACTIC TX Encephalopathy d/c from [facility] 09/20/19 (hepatic encephalopathy) Irregular heart beat follows Dr. 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 Lemus LEG WEAKNESS CURRENT PT/OT FOR - BRACES B/L LEGS Gastroparesis Portal hypertensive gastropathy ESPANA (nonalcoholic steatohepatitis) Moderate aortic stenosis Chronic diastolic CHF (congestive heart failure) Hypertension CAD (coronary artery disease) History of multiple PCI's to the RCA with subsequent CABG x1 in 2010 x 1 vessel Most recent cardiac testing-negative DSE in December 2017 Follows w/ Dr. Blackwell and Dr. Lucas DM type 2 (diabetes mellitus, type 2) IDDM Hypothyroidism Dyslipidemia Surgical History History of left hip replacement 02/05/2022 History of cataract surgery RT History of esophagogastroduodenoscopy (EGD) History of colonoscopy History of heart artery stent 2 yrs ago @ [facility] > 6 or 7 stents > follows Dr. Lucas History of cardiac cath multiple - most recent - 2 years ago @ [facility] S/P CABG x 1 2010 - single vessel S/P CARLOS (total abdominal hysterectomy) Hx of cholecystectomy History of back surgery sacral area History of appendectomy History of total right knee replacement Family History Father Coronary heart disease Brother Coronary heart disease Father No problems noted. Mother No problems noted. Other No family history of adverse response to anesthesia Social History (Updated 05/09/23 @ 13:29 by Madelyn Biswas, KAT) Smoking Status: Never smoker Tobacco Type: Cigarettes Second Hand Exposure: Yes; Do You Dip or Chew Tobacco: No; Hx Alcohol Use: No Hx Substance Use: No Preferred Language: Estonian Communication Ability: Effective Visual Impairment: Partially Limited Hearing Ability: Hard of Hearing Professor Of Theater Required: No Beliefs That Will Affect Care: None marital status: / Current Living Situation: Alone Current Living Situation Comment: Has 27/01 caregiver thought [employer] [facility] Family [facility] How many Children do You have: 3 Feels Safe at Home: Yes Diet: low carbohydrate and low salt caffeine: No Assistive Devices: Bedside Commode, Brace/Splint/Immobilizer, Lift Chair, Walker and Wheelchair Review of Systems Review of Systems: Negative otherwise mentioned in HPI. Physical Exam Physical Exam: GENERAL: Alert and oriented x3. not oriented to situation. NAD, on RA. Elderly/frail appearing. HEENT: No pallor, no icterus. Pupils equal, round and reactive to light. Oral mucosa moist. NECK: No JVD, no neck masses. HEART: S1 and S2 heard. Regular rate and rhythm. + murmur, no gallop. RESPIRATORY SYSTEM: Normal AP diameter. No accessory muscle use. No wheezing, no crackles. ABDOMEN: Soft, bowel sounds present, nontender, no distention. CENTRAL NERVOUS SYSTEM: No facial droop. Speech is clear. Obeys simple commands. Moves extremities. EXTREMITIES: Trace BLE edema, no erythema seen. Results & Data Results & Data Vital Signs (Past 12 Hours) Vital Signs Temp Pulse Pulse Resp BP BP Pulse Ox 05/12/23 18:25 72 05/12/23 18:00 67 22 100/65 95 05/12/23 17:30 69 17 108/68 94 05/12/23 17:01 71 18 109/86 94 05/12/23 16:53 97 05/12/23 16:53 67 20 111/67 97 05/12/23 16:53 97 05/12/23 16:31 74 13 111/67 97 05/12/23 16:21 36.6 C 70 14 111/67 98 O2 Del Method 05/12/23 18:25 05/12/23 18:00 Room Air 05/12/23 17:30 Room Air 05/12/23 17:01 Room Air 05/12/23 16:53 Room Air 05/12/23 16:53 Room Air 05/12/23 16:53 Room Air 05/12/23 16:31 Room Air 05/12/23 16:21 Room Air
--- NOTE | 2023-05-12 21:19 | CT Scan Report ---
Exam(s): CT HEAD Without Contrast EXAM: CT Head Without Intravenous Contrast CLINICAL HISTORY: Reason for exam: confusion. TECHNIQUE: Axial computed tomography images of the head/brain without intravenous contrast. CTDI is 36.05 mGy and DLP is 624.41 mGy-cm. Automated exposure control was utilized for the study. A dose lowering technique was utilized adhering to the principles of ALARA. COMPARISON: CT head 08/17/2012. FINDINGS: Brain: Global parenchymal volume loss with chronic microvascular ischemic changes. Chronic lacunar infarction in the right thalamus. No hemorrhage. Ventricles: No ventriculomegaly. Bones/joints: Unremarkable. No acute fracture. Soft tissues: Unremarkable. Sinuses: Unremarkable as visualized. Mastoid air cells: Unremarkable as visualized. No mastoid effusion. Orbits: The lateral lens replacement. IMPRESSION: 1. No intracranial hemorrhage or other acute intracranial abnormality. 2. Global parenchymal volume loss with chronic microvascular ischemic changes. 3. Chronic lacunar infarction in the right thalamus. Electronically signed by: Torres Leach MD 05/12/23 21:18 PM
[2023-05-12] MEDS ORDERED: ALBUTEROL HFA 8 GM INHALER INH PRN (21:32)
[2023-05-12] MEDS ORDERED: CARBOHYDRATES FOR HYPOGLYCEMIA PO PRN (21:32)
[2023-05-12] MEDS ORDERED: GLUCOSE 40% GEL 15 GM TUBE PO PRN (21:32)
[2023-05-12] MEDS ORDERED: ONDANSETRON INJ 2 MG/ML 2 ML VIAL IV PRN (21:32)
[2023-05-12] MEDS ORDERED: POLYETHYLENE (MIRALAX) 17 GM PACK PO PRN (21:32)
[2023-05-12] MEDS ORDERED: SODIUM CHLORIDE 0.9% 1,000 ML IV SCH (21:32)
[2023-05-12] MEDS ORDERED: DEXTROSE 50% 50 ML SYRINGE IV PRN (21:32)
[2023-05-12] MEDS ORDERED: GLUCAGON FOR INJ 1 MG VIAL SQ PRN (21:32)
[2023-05-12] MEDS ORDERED: GLUCOSE 10 TAB/TUBE PO PRN (21:32)
[2023-05-12] MEDS ORDERED: PIPER/TAZO 4.5g in D5W MINI-B 100 ML IV ONE (22:00)
[2023-05-12] MEDS: HEPARIN SOD 5,000 UNIT/0.5 ML VIAL SQ SCH (22:43)
[2023-05-12] MEDS: INSULIN ASPART PER UNIT CHARGE SC SCH (22:44)
[2023-05-12] MEDS: lamoTRIgine 25 MG TAB PO SCH (22:46)
[2023-05-12] MEDS: LACTULOSE SYRUP 30 GM/45 ML UDP PO SCH (22:46)
[2023-05-12] MEDS: MELATONIN 3 MG TAB PO SCH (22:48)
[2023-05-12] MEDS: rifAXIMin 550 MG TABLET PO SCH (22:49)
[2023-05-13] MEDS: PANTOprazole 40 MG TAB PO SCH ×3 (00:48→22:15)
[2023-05-13] MEDS: PIPERACILLIN/TAZOBACTAM 4.5 GM in DEXTROSE 5% MINI-B 100 ML IV SCH ×3 (06:47→22:14)
[2023-05-13] MEDS: LEVOTHYROXINE SODIUM 88 MCG TABLET PO SCH (06:49)
[2023-05-13] MEDS: FLUTICASONE/VILANTEROL 200/25MCG 14 PUFFS/INHALER INH SCH ×2 (09:13→09:22)
[2023-05-13] MEDS: ATORVASTATIN 40 MG TAB PO SCH (09:21)
[2023-05-13] MEDS: FAMOTIDINE 40 MG TABLET PO SCH (09:21)
[2023-05-13] MEDS: ARIPIprazole 1 MG/ML ORAL SOLN 150 ML BTL PO SCH (09:21)
[2023-05-13] MEDS: HEPARIN SOD 5,000 UNIT/0.5 ML VIAL SQ SCH ×2 (09:22→22:14)
[2023-05-13] MEDS: ADVANCED PROBIOTIC 1250 MG CAPSULE PO SCH (09:22)
[2023-05-13] MEDS: FLUTICASONE PROPIONATE NA SPR 16 GM BTL NAE SCH (09:22)
[2023-05-13] MEDS: ASPIRIN 81 MG ECTAB PO SCH (09:22)
[2023-05-13] MEDS: LACTULOSE SYRUP 30 GM/45 ML UDP PO SCH ×3 (09:22→22:14)
[2023-05-13] MEDS: rifAXIMin 550 MG TABLET PO SCH ×2 (09:23→22:15)
[2023-05-13] MEDS: lamoTRIgine 100 MG TAB PO SCH (09:23)
[2023-05-13] MEDS: OXYBUTYNIN CHLORIDE XL 5 MG TABCR PO SCH (09:23)
[2023-05-13] MEDS: METOPROLOL SUCC 25MG EXT REL TAB PO SCH (09:23)
[2023-05-13] MEDS: TAMSULOSIN HCL 0.4 MG CAP PO SCH (09:23)
[2023-05-13] MEDS: lamoTRIgine 25 MG TAB PO SCH ×2 (09:23→22:15)
[2023-05-13] MEDS: VENLAFAXINE HCL XR 150 MG CAPXR PO SCH (09:24)
[2023-05-13] MEDS: VENLAFAXINE HCL XR 75 MG CAPXR PO SCH (09:24)
[2023-05-13] MEDS: INSULIN ASPART PER UNIT CHARGE SC SCH ×4 (10:44→20:07)
--- NOTE | 2023-05-13 12:58 | Hospitalist Progress Note ---
Date of Service May 13, 2023 Assessment & Plan (1) Acute confusion: Plan per admitting service notes with addendum: Likely metabolic encephalopathy: Catheter associated UTI Patient has been confused since about 3 weeks and was found to have UTI, recently started on antibiotic - initially ertapenem then changed to cefepime last Friday [supposed to continue up to coming Friday]. Patient with worsening confusion after cefepime has been started. Admitting labs reviewed, notable for CEE over CKD Which might also contribute to her encephalopathy. Patient has been on catheter since her left femur fracture. Last Gallagher catheter change about a month ago per patient's daughter. Change Gallagher catheter, change cefepime to Zosyn. head CT pending. 05/13 CT head: 1. No intracranial hemorrhage or other acute intracranial abnormality. 2. Global parenchymal volume loss with chronic microvascular ischemic changes. 3. Chronic lacunar infarction in the right thalamus. Ammonia: 28 Urine culture 04/29: Enterobacter cloacae and Pseudomonas aeruginosa continue IV Zosyn Day # 2 last Gallagher catheter change was a month ago CEE over CKD stage IIIa: Admitting creatinine elevated, baseline creatinine around 0.8, IV fluid with NS at 50 mils an hour. Encourage p.o. intake. Hold nephrotoxic's including diuretics and MADELINE inhibitors. 05/13 crea back to baseline Mild hyponatremia given IV fluids Na 130 --> 133 Femoral Fracture s/p ORIF 02/02/23 DM 2 - ISS CAD/CABG - mild troponin elevation 20s, chronic no cardiac symptoms GONZALEZ Cirrhosis - ammonia level normal appears compensated Anxiety/Bipolar Disorder - continue usual meds DVT prophylaxis: Heparin SC Full code lives with family at home Admission and Anticipated Discharge Date Admission Date: May 12, 2023 Subjective ff up for confusion, etc seen resting in bed, comfortable oriented x 1, somewhat confused states she feels fine overall Denies abdominal pain, leg pain, problems urination, fevers or chills no chest pain, dyspnea, palpitations, dizziness Review of Systems Review of Systems: all noted and negative except for above Physical Exam Physical Exam: General- oriented x 1, not in distress, speaks in sentences with no effort or accessory muscle use Eyes- anicteric Neck- no JVD Lungs- clear breath sounds bilaterally, no rales/wheezes Heart- normal rate, regular rhythm; no murmurs Abdomen- normal bowel sounds, nondistended, soft, nontender Extremities- mild pedal edema, no calf tenderness Neuro- alert, oriented x 1; no other gross focal neurologic deficits Skin- warm & dry Results & Data Results & Data Vital Signs (Past 12 Hours) Vital Signs Pulse Resp BP Pulse Ox Pulse Ox O2 Del Method 05/13/23 09:50 94 05/13/23 09:06 118/83 95 05/13/23 07:40 69 19 05/13/23 07:30 71 14 05/13/23 07:20 67 16 94 05/13/23 07:10 68 17 93 05/13/23 07:00 68 23 94 05/13/23 06:58 66 05/13/23 06:50 69 15 96 05/13/23 06:40 71 19 98 05/13/23 06:31 103/66 05/13/23 06:31 65 17 94 05/13/23 06:30 67 12 96 05/13/23 06:20 66 19 95 05/13/23 06:10 67 20 91 05/13/23 06:00 130/66 05/13/23 06:00 63 19 93 05/13/23 05:50 66 18 92 05/13/23 05:40 67 19 93 05/13/23 05:30 96/73 L 05/13/23 05:30 66 19 93 05/13/23 05:20 65 16 92 05/13/23 05:10 65 19 93 05/13/23 05:00 125/64 05/13/23 05:00 68 19 93 05/13/23 04:50 64 18 92 05/13/23 04:40 65 20 94 05/13/23 04:30 63 16 94 05/13/23 04:30 120/66 05/13/23 03:00 65 20 132/67 94 05/13/23 02:59 94 Room Air 05/13/23 02:50 62 18 96 05/13/23 02:40 63 15 94 05/13/23 02:30 123/65 05/13/23 02:30 64 16 93 05/13/23 02:20 66 16 94 05/13/23 02:10 65 16 94 05/13/23 02:00 65 17 95 05/13/23 02:00 129/69 05/13/23 01:50 63 14 96 05/13/23 01:40 65 18 95 05/13/23 01:30 123/61 05/13/23 01:30 65 17 95 05/13/23 01:20 66 16 95 05/13/23 01:10 66 15 95 05/13/23 01:00 125/89 05/13/23 01:00 68 20 96 all noted and reviewed including below
--- NOTE | 2023-05-13 13:34 | Electrocardiogram Report ---
Test Reason : Blood Pressure : / mmHG Vent. Rate : 072 BPM Atrial Rate : 072 BPM P-R Int : 182 ms QRS Dur : 116 ms QT Int : 410 ms P-R-T Axes : 001 -55 085 degrees QTc Int : 448 ms Normal sinus rhythm Incomplete right bundle branch block Left anterior fascicular block Minimal voltage criteria for LVH, may be normal variant Poor R wave progression, consider anterior UT vs. lead placement vs. LVH Abnormal ECG When compared with ECG of 07-FEB-2023 20:14, No significant change Confirmed by Venkat Worrell ([id number]) on 05/13/2023 1:34:22 PM Referred By: REFERRED SELF Confirmed By:Venkat Worrell
[2023-05-13 13:36] LABS: Albumin Globulin Ratio 1.3 (0.9-2); Albumin Level 3.5 gm/dl (3.4-5.0); BUN Creatinine Ratio 14.5 (10-20); Calcium 9.1 mg/dl (8.6-10.3); Creatinine Clr Calc Pharmacy 55.1 ml/min; Est GFR (African American) 53.5 ml/min; Est GFR (Non-African American) 46.2 ml/min; Globulin 2.8 gm/dl (2.5-4.0); Total Protein 6.3 gm/dl (6.0-8.3)
[2023-05-13 13:56] LABS: Estimated Average Glucose 117 mg/dl; Hemoglobin A1C 5.7 % (4.5-5.6)
[2023-05-13 14:13] LABS: Hematocrit (blood only) 35.3 % (37.0-47.0); Mean Corpuscular Hemoglobin 27.6 pg (25.0-34.0); Mean Corpuscular Volume 81.3 fL (80.0-100.0); Platelet Count 93 K/uL (130-400); RDW Coefficient of Variation 14.9 % (11.5-14.5); RDW Standard Deviation 43.8 fL (36.4-46.3); Red Blood Count 4.34 M/uL (4.20-5.40); White Blood Count 6.88 K/ul (4.8-10.8)
[2023-05-13] MEDS ORDERED: OLANZapine 10 MG/2.1 ML SDV IM PRN (20:31)
--- NOTE | 2023-05-13 20:33 | Communication Note ---
Date of Service: May 13, 2023 Patient daughter would like patient's [id number] Klonopin and morphine to be restarted once patient mentation back to baseline due to withdrawal concerns. I told patient's daughter it might be worth trying to utilize lower doses of current home morphine and Klonopin medications upon discharge to decrease chances of causing unwanted side effects like confusion.
[2023-05-13] MEDS ORDERED: oxyCODONE HCL IR 5 MG TAB (IMMEDIATE RELEASE) PO PRN (21:22)
[2023-05-13] MEDS: MELATONIN 3 MG TAB PO SCH (22:15)
[2023-05-13] MEDS: ACETAMINOPHEN 325 MG TAB PO PRN (22:21)
[2023-05-14] MEDS: ACETAMINOPHEN 325 MG TAB PO PRN ×2 (02:56→10:32)
[2023-05-14] MEDS: LEVOTHYROXINE SODIUM 88 MCG TABLET PO SCH (05:30)
[2023-05-14] MEDS: PIPERACILLIN/TAZOBACTAM 4.5 GM in DEXTROSE 5% MINI-B 100 ML IV SCH ×3 (05:30→21:45)
[2023-05-14] MEDS: FAMOTIDINE 40 MG TABLET PO SCH (08:07)
[2023-05-14] MEDS: OXYBUTYNIN CHLORIDE XL 5 MG TABCR PO SCH (08:07)
[2023-05-14] MEDS: HEPARIN SOD 5,000 UNIT/0.5 ML VIAL SQ SCH ×2 (08:07→21:29)
[2023-05-14] MEDS: lamoTRIgine 25 MG TAB PO SCH ×2 (08:07→21:28)
[2023-05-14] MEDS: ASPIRIN 81 MG ECTAB PO SCH (08:08)
[2023-05-14] MEDS: ARIPIprazole 1 MG/ML ORAL SOLN 150 ML BTL PO SCH (08:09)
[2023-05-14] MEDS: lamoTRIgine 100 MG TAB PO SCH (08:09)
[2023-05-14] MEDS: ADVANCED PROBIOTIC 1250 MG CAPSULE PO SCH (08:09)
[2023-05-14] MEDS: TAMSULOSIN HCL 0.4 MG CAP PO SCH (08:09)
[2023-05-14] MEDS: ATORVASTATIN 40 MG TAB PO SCH (08:09)
[2023-05-14] MEDS: VENLAFAXINE HCL XR 150 MG CAPXR PO SCH (08:09)
[2023-05-14] MEDS: METOPROLOL SUCC 25MG EXT REL TAB PO SCH (08:09)
[2023-05-14] MEDS: rifAXIMin 550 MG TABLET PO SCH ×2 (08:09→21:29)
[2023-05-14] MEDS: PANTOprazole 40 MG TAB PO SCH ×2 (08:09→21:28)
[2023-05-14] MEDS: VENLAFAXINE HCL XR 75 MG CAPXR PO SCH (08:09)
[2023-05-14] MEDS: LACTULOSE SYRUP 30 GM/45 ML UDP PO SCH ×3 (08:11→21:29)
[2023-05-14] MEDS: FLUTICASONE PROPIONATE NA SPR 16 GM BTL NAE SCH (08:11)
[2023-05-14] MEDS: FLUTICASONE/VILANTEROL 200/25MCG 14 PUFFS/INHALER INH SCH (08:54)
[2023-05-14] MEDS: INSULIN ASPART PER UNIT CHARGE SC SCH ×4 (08:55→20:56)
[2023-05-14] MEDS ORDERED: clonazePAM 0.25 MG TAB PO SCH (09:00)
--- NOTE | 2023-05-14 14:37 | Hospitalist Progress Note ---
Date of Service May 14, 2023 Assessment & Plan (1) Acute confusion: Plan per admitting service notes with addendum: Likely metabolic encephalopathy: Catheter associated UTI, POA Patient has been confused since about 3 weeks and was found to have UTI, recently started on antibiotic - initially ertapenem then changed to cefepime last Friday. Patient with worsening confusion after cefepime has been started. Patient has been on catheter since her left femur fracture. Last Gallagher catheter change about a month ago per patient's daughter. Change Gallagher catheter, change cefepime to Zosyn. CT head without any acute findings Ammonia 28 Discussed with patient's daughter. Patient Gallagher was placed in end of January during her surgery for left femur fracture. Trial of void today. Continue Zosyn for today and stop. CEE over CKD stage IIIa: Admitting creatinine elevated, baseline creatinine around 0.8. Creatinine at baseline after hydration Mild hyponatremia given IV fluids Na 130 --> 133 Femoral Fracture s/p ORIF 02/02/[address] Ruiz; patient can bear partial weight on left side. PT OT ordered DM 2 - ISS CAD/CABG - mild troponin elevation 20s, chronic no cardiac symptoms GONZALEZ Cirrhosis - ammonia level normal appears compensated Anxiety/Bipolar Disorder - continue usual meds DVT prophylaxis: Heparin SC Full code lives with family at home with 24-hour caregiver Time spent evaluating patient, direct bedside care, chart review, placing orders, interpretation of diagnostic studies, discussion with consultants, patient, and family members, as well as other required patient management activities is 60 minutes Please note the above document was generated using voice recognition software. It may contain grammatical, syntax or spelling errors. Any formal questions or concerns about the content, text or information contained within the body of this dictation should be directly addressed to the provider for clarification Admission and Anticipated Discharge Date Admission Date: May 12, 2023 Subjective Patient seen multiple times throughout the day. Per her daughter, patient's mentation improved compared to yesterday. Review of Systems Review of Systems: All systems reviewed & are unremarkable except as noted in Subjective Physical Exam Physical Exam: General- oriented x 2, not in distress, speaks in sentences with no effort or accessory muscle use Eyes- anicteric Neck- no JVD Lungs- clear breath sounds bilaterally, no rales/wheezes Heart- normal rate, regular rhythm; no murmurs Abdomen- normal bowel sounds, nondistended, soft, nontender Extremities- mild pedal edema, no calf tenderness Neuro- alert, oriented x 2; no other gross focal neurologic deficits Skin- warm & dry Results & Data Results & Data Vital Signs (Past 12 Hours) Vital Signs Temp Pulse Pulse Resp BP BP Pulse Ox 05/14/23 11:24 37.3 C 72 18 124/71 96 05/14/23 07:28 37.1 C 67 18 145/54 H 97 05/14/23 06:00 70 05/14/23 03:21 37.1 C 71 18 134/71 95 O2 Del Method 05/14/23 11:24 Room Air 05/14/23 07:28 Room Air 05/14/23 06:00 05/14/23 03:21 Room Air
[2023-05-14] MEDS ORDERED: MoRPHine SULFATE CR 15 MG TABCR PO PRN (21:00)
[2023-05-14] MEDS: MELATONIN 3 MG TAB PO SCH (21:43)
[2023-05-15] MEDS: LEVOTHYROXINE SODIUM 88 MCG TABLET PO SCH (06:13)
[2023-05-15] MEDS: PIPERACILLIN/TAZOBACTAM 4.5 GM in DEXTROSE 5% MINI-B 100 ML IV SCH (06:13)
[2023-05-15 07:54] LABS: Basophils # (auto) 0.05 K/uL (0.00-0.20); Basophils % (auto) 0.8 %; Eosinophils # (auto) 0.25 K/uL (0.00-0.50); Eosinophils % (auto) 3.8 %; Hematocrit (blood only) 36.1 % (37.0-47.0); Immature Granulocytes # (auto) 0.04 K/uL (0.01-0.20); Immature Granulocytes % (auto) 0.6 %; Lymphocytes # (auto) 1.92 K/uL (1.20-3.40); Lymphocytes % (auto) 29.1 %; Mean Corpuscular Hemoglobin 27.5 pg (25.0-34.0); Mean Corpuscular Hgb Conc 33.2 g/dL (32.0-36.0); Mean Corpuscular Volume 82.6 fL (80.0-100.0); Mean Platelet Volume 10.7 fL (9.4-12.4); Monocytes # (auto) 0.56 K/uL (0.11-0.59); Monocytes % (auto) 8.5 %; Neutrophils # (auto) 3.77 K/uL (1.40-6.50); Neutrophils % (auto) 57.2 %; Platelet Count 89 K/uL (130-400); RDW Coefficient of Variation 14.6 % (11.5-14.5); RDW Standard Deviation 43.9 fL (36.4-46.3); Red Blood Count 4.37 M/uL (4.20-5.40); White Blood Count 6.59 K/ul (4.8-10.8)
[2023-05-15 08:34] LABS: Calcium 9.3 mg/dl (8.6-10.3); Creatinine Clr Calc Pharmacy 73.3 ml/min; Est GFR (African American) 75.5 ml/min; Est GFR (Non-African American) 65.2 ml/min; Potassium 3.9 mmol/L (3.5-5.1)
[2023-05-15] MEDS: INSULIN ASPART PER UNIT CHARGE SC SCH ×2 (09:00→12:35)
[2023-05-15] MEDS: ARIPIprazole 1 MG/ML ORAL SOLN 150 ML BTL PO SCH ×2 (09:16→09:52)
[2023-05-15] MEDS: VENLAFAXINE HCL XR 150 MG CAPXR PO SCH ×2 (09:16→09:52)
[2023-05-15] MEDS: ADVANCED PROBIOTIC 1250 MG CAPSULE PO SCH ×2 (09:16→09:53)
[2023-05-15] MEDS: METOPROLOL SUCC 25MG EXT REL TAB PO SCH ×2 (09:16→09:53)
[2023-05-15] MEDS: LACTULOSE SYRUP 30 GM/45 ML UDP PO SCH ×2 (09:16→09:53)
[2023-05-15] MEDS: FAMOTIDINE 40 MG TABLET PO SCH ×2 (09:16→09:52)
[2023-05-15] MEDS: OXYBUTYNIN CHLORIDE XL 5 MG TABCR PO SCH ×2 (09:17→09:53)
[2023-05-15] MEDS: VENLAFAXINE HCL XR 75 MG CAPXR PO SCH ×2 (09:17→09:52)
[2023-05-15] MEDS: PANTOprazole 40 MG TAB PO SCH ×2 (09:17→09:53)
[2023-05-15] MEDS: ATORVASTATIN 40 MG TAB PO SCH ×2 (09:17→09:52)
[2023-05-15] MEDS: ASPIRIN 81 MG ECTAB PO SCH ×2 (09:17→09:52)
[2023-05-15] MEDS: lamoTRIgine 100 MG TAB PO SCH ×2 (09:17→09:53)
[2023-05-15] MEDS: rifAXIMin 550 MG TABLET PO SCH ×2 (09:17→09:51)
[2023-05-15] MEDS: TAMSULOSIN HCL 0.4 MG CAP PO SCH ×2 (09:17→09:52)
[2023-05-15] MEDS: FLUTICASONE/VILANTEROL 200/25MCG 14 PUFFS/INHALER INH SCH ×2 (09:18→09:53)
[2023-05-15] MEDS: HEPARIN SOD 5,000 UNIT/0.5 ML VIAL SQ SCH ×2 (09:19→09:53)
[2023-05-15] MEDS: lamoTRIgine 25 MG TAB PO SCH ×2 (09:19→09:53)
[2023-05-15] MEDS: FLUTICASONE PROPIONATE NA SPR 16 GM BTL NAE SCH (09:52)
--- NOTE | 2023-05-15 14:33 | Discharge Summary ---
Date of Service May 15, 2023 Admission HPI Per Admitting Provider 72-year-old female with PMH of T2DM with neuropathy and gastroparesis on insulin, HLD, hypothyroidism, CKD stage IIIa, CAD, CABG, [place] cirrhosis, anxiety, bipolar disorder, recurrent UTI who was admitted in the hospital for fall/left femoral fracture/status post ORIF on February 02, 2023 and has been on Gallagher catheter since then and is nonweightbearing until Ortho f/u; presented to the ED with concern of worsening confusion/hallucination. Per patient's daughter, she had very foul smelling urine about 3 weeks ago, urine culture was obtained as an outpatient, was initially started on Meropenem, and when the growth finalized she was changed to cefepime. She has been slightly confused since about 3 weeks which got worsened after changing her antibiotic to cefepime per patient's daughter at bedside. Her appetite has also gone down since last few days. Reports cough with clear sputum. Otherwise no fever/headache/dizziness/chest pain/palpitations/abdominal pain/pain at prior operative site. patient has been sleepy, confused, hallucinating more lately. Per patient's daughter, last Gallagher catheter change was a month ago. Denies a smoking/using alcohol/using recreational drug. Full code Medications reviewed with the patient and her daughter at bedside. Plan of care discussed with the patient and her daughter at bedside, they voiced understanding and were agreeable to the plan of care. Admission Exam Per Admitting Provider GENERAL: Alert and oriented x3. not oriented to situation. NAD, on RA. Elderly/frail appearing. HEENT: No pallor, no icterus. Pupils equal, round and reactive to light. Oral mucosa moist. NECK: No JVD, no neck masses. HEART: S1 and S2 heard. Regular rate and rhythm. + murmur, no gallop. RESPIRATORY SYSTEM: Normal AP diameter. No accessory muscle use. No wheezing, no crackles. ABDOMEN: Soft, bowel sounds present, nontender, no distention. CENTRAL NERVOUS SYSTEM: No facial droop. Speech is clear. Obeys simple commands. Moves extremities. EXTREMITIES: Trace BLE edema, no erythema seen. Principal Diagnosis Catheter associated UTI, POA metabolic encephalopathy CEE on CKD Hyponatremia Discharge Exam General- oriented x 2, not in distress, speaks in sentences with no effort or accessory muscle use Eyes- anicteric Neck- no JVD Lungs- clear breath sounds bilaterally, no rales/wheezes Heart- normal rate, regular rhythm; no murmurs Abdomen- normal bowel sounds, nondistended, soft, nontender Extremities- mild pedal edema, no calf tenderness Neuro- alert, oriented x 2; no other gross focal neurologic deficits Skin- warm & dry Discharge Data Allergies Allergy/AdvReac Type Severity Reaction Status Date / Time propoxyphene Allergy Intermediate Rash Verified 05/09/23 13:18 fentanyl AdvReac Intermediate PANIC Verified 05/09/23 13:18 WANTS TO RUN AND AGGRESSIVE methocarbamol AdvReac Intermediate DELERIUM Verified 05/09/23 13:18 zolpidem AdvReac Intermediate confusion Verified 05/09/23 13:18 Consultations 05/12/23 20:00 ED Decision to Admit Stat Ordered Studies 05/12/23 17:57 CT head/brain wo con Stat Hospital Course (1) Acute confusion: Plan Likely metabolic encephalopathy: Catheter associated UTI, POA Patient has been confused since about 3 weeks and was found to have UTI, recently started on antibiotic - initially ertapenem then changed to cefepime last Friday. Patient with worsening confusion after cefepime has been started. During the hospitalization, antibiotics were changed to Zosyn. Patient completed 1 week of antibiotics. Her mentation was back to baseline. Gallagher catheter was removed; patient was able to void independently. At discharge, patient was back to her baseline mentation Femoral Fracture s/p ORIF 02/02/[address] Ruiz; patient can bear partial weight on left side. Patient was bearing weight since the surgery; was bedbound. Patient has 24-hour caregiver with PT OT at home. Patient to follow-up with PCP CEE on CKD-improved with IV hydration; creatinine back to baseline Hyponatremia-chronic; stable. Please note the above document was generated using voice recognition software. It may contain grammatical, syntax or spelling errors. Any formal questions or concerns about the content, text or information contained within the body of this dictation should be directly addressed to the provider for clarification Total Time Total Time Spent Total Time Spent (In Minutes): 45 Total Time Includes: Examination of the Patient, Discharge Planning, Medication Reconciliation, Communication With Other Providers and Other Discharge Plan Discharge Items Patient Disposition: Home - Home Health Services Reason For Visit: AMS Discharge Diagnosis: Metabolic encephalopathy Activity: Resume your previous activity Non-emergency contact: Primary Care Provider Call non-emergency contact if: you have any medication questions Follow-up/Referrals: Brian Domínguez MD [Primary Care Provider] - (Date & Time 05/20/2023 11:20 AM Provider Marcelle Landa MD [facility] ) Diet: Regular Addtl Attending Provider Instructions: You were admitted to the hospital due to altered mental status. The likely cause for the altered mental status is urinary tract infection and possible side effect by cefepime. You completed antibiotic course during the hospitalization. Discussion was done with the orthopedic doctor (Dr. Ruiz); you can bear partial weight on left leg. Gallagher catheter was also removed during the hos pitalization. Please continue physical therapy and Occupational Therapy at home. Please follow-up with orthopedics. Klonopin can contribute to altered mental status especially in old age. Please discuss with your primary care doctor regarding resuming it or stopping it altogether Pending Studies at Discharge: No Stand-Alone Forms: My [facility] [place], Smoking Cessation Medications and DC Order Prescriptions: Continued atorvastatin 40 mg Tablet 40 mg PO QAM torsemide 20 mg tablet 20 mg PO QAM Rx Instructions: may take 1 additional tablet as needed for swelling trazodone 50 mg Tablet 50 mg PO HS polyethylene glycol 3350 [Miralax] 17 gram Powder In Packet 17 g PO DAILY PRN (Reason: Constipation) Rx Instructions: GIVE @ LUNCH venlafaxine 150 mg capsule,extended release 24hr 150 mg PO QAM lamotrigine [Lamictal] 25 mg Tablet 25 mg PO QAM lamotrigine [Lamictal] 25 mg Tablet 50 mg PO HS levothyroxine 88 mcg tablet 88 mcg PO QAM methenamine hippurate 1 gram tablet 1 g PO AMHS potassium chloride [Klor-Con M20] 20 mEq tablet,ER particles/crystals 20 meq PO QAM PRN (Reason: when taking additional torsemide) famotidine 20 mg Tablet 40 mg PO QAM tamsulosin 0.4 mg Capsule 0.4 mg PO QAM pantoprazole 40 mg tablet,delayed release (DR/EC) 40 mg PO AMPM nitroglycerin [Nitrostat] 0.4 mg Tablet, Sublingual 0.4 mg sublingual DIRECTED MDD 3 tablets in 15 minutes PRN (Reason: Chest Pain) Rx Instructions: Q 5 MIN PRN chest pain. gabapentin 300 mg Capsule 300 mg PO BID montelukast 10 mg tablet 10 mg PO DAILY metoprolol succinate 25 mg Tablet Extended Release 24 Hr 25 mg PO QAM ergocalciferol (vitamin D2) [Vitamin D2] 1,250 mcg (50,000 unit) Capsule 1,250 mcg PO .Q THUR albuterol sulfate 90 mcg/actuation Hfa Aerosol Inhaler 2 inh INHALATION Q6 PRN (Reason: Shortness Of Breath Or Wheezing) fluticasone propionate [Flonase Allergy Relief] 50 mcg/actuation [place],Suspension 2 spray INTRANASAL DAILY Rx Instructions: administer into each nostril lamotrigine [Lamictal] 100 mg Tablet 100 mg PO QAM aripiprazole 2 mg Tablet 2 mg PO QAM venlafaxine 75 mg Tablet Extended Release 24hr 75 mg PO QAM Xifaxan 550 mg tablet 550 mg PO Q12 lactulose 20 gram/30 mL Solution 30 g PO TID Trulicity 4.5 mg/0.5 mL pen injector 4.5 mg SUBCUT WK Rx Instructions: take weekly on wednesdays insulin glargine [Lantus U-100 Insulin] 100 unit/mL solution 30 unit SUBCUT Q12 morphine 15 mg tablet extended release 15 mg PO HS PRN (Reason: Pain,severe) aspirin 81 mg tablet,delayed release (DR/EC) 81 mg PO QAM oxybutynin chloride 10 mg tablet extended release 24hr 10 mg PO QAM ascorbic acid (vitamin C) [Vitamin C] 500 mg tablet 500 mg PO AMHS metformin 500 mg tablet extended release 24 hr 500 mg PO QDD spironolactone 50 mg tablet 50 mg PO AMHS budesonide-formoterol [Symbicort] 160-4.5 mcg/actuation HFA aerosol inhaler 2 puff INHALATION AMHS benzonatate 100 mg Capsule 100 mg PO TID PRN (Reason: Cough) nystatin [Nyamyc] 100,000 unit/gram powder 1 applic TOPICAL TID Rx Instructions: apply to right breast until rash resolved ondansetron HCl 8 mg tablet 8 mg PO Q8 PRN (Reason: Nausea) dicyclomine 10 mg Capsule 10 mg PO QID PRN (Reason: Abdominal Pain) Held clonazepam 0.5 mg tablet 0.5 mg PO TID Hold Instructions: Resume on 05/20/23. Till you see your primary care doctor. Discontinued cefepime 1 gram recon soln 1 g IV UD Discharge Orders: Discharge Order (Routine); Ordered 05/15/23 Ordered By: Alvaro Cameron Admission Data Admit Date/Time: 05/12/23 19:50 Attending Provider: Alvaro Cameron Admit Provider: Jazmin Toussaint Primary Care Provider: Brian Domínguez Other Providers: Jazmin Toussaint; Leroy Guevara; [facility] F[facility] Other Interventions: Discharge Summary Assessment (RN) Last Done: 05/15/23 14:09
--- OUTSIDE RECORDS SUMMARY | 2023-05-17 12:03 | External Medical Summary | Summary of Care ---
Author Name Unknown Organization [facility] Address [address] [place] [address] Phone [phone] Care Team Providers Care Propellant Charge Zone Assembler Name Role Phone Brian Domínguez MD Primary Care Provider [phone]- [phone] Reason for Visit * Reason Onset Date Comments case management 05/06/2023 Encounter Details Date Type Department Care Team (Late st Contact Info) Description 05/06/2023 Telecasting Engineer Telephone Family Practice [facility] [address] [facility] [address] Nayla Bellamy, RN [address] [place] [address] case management Allergies Active Allergy Reactions Criticality Noted Date Comments Propoxyphene Hcl Rash Low 10/29/2010 Fentanyl Diarrhea Low 04/26/2010 anxiety Methocarbamol Medium 10/05/2020 Other reaction(s): Delirium Methocarbamol Low 04/15/2007 Zolpidem Low 10/05/2020 Other reaction(s): Confusion documented as of this encounter (statuses as of 05/12/2023) Medications Medication Sig Dispensed Refills Start Date End Date Status ARIPiprazole (ABILIFY) 2 MG Tablet Take 1 Tablet by mouth in the morning. 0 2015 Active venlafaxine XR (EFFEXOR XR) 150 MG [id number]:Dep ression Take 1 Cap by mouth daily. With food. 30 Cap 5 09/02/2016 Active Additional Information Patient taking differently: 225 mgOral Daily(AM),Taking a total of 225 mg, Indications: Takes 225 mg total every morning with food (150 mg tab + 75 mg tab), Reported on 03/03/2023 Blood Glucose Monitoring Suppl (D-CARE GLUCOMETER) w/Device KITIndications:Unco ntrolled type 2 diabetes mellitus without complication, without long-term current use of insulin Use as directed. Use as directed once daily 1 Kit 0 11/18/2017 Active Blood Glucose Monitoring Suppl (PK Clean VERIO) w/Device KIT Use as directed. Use as directed. 1 Kit 0 10/31/2018 Active Spacer/Aero-Holding Chambers WISAM Use with inhaler. Wheezing/bronchitis . 1 Device 0 04/08/2019 Active Ripple Networksuch DelENOVIX Lancets 33G MISC USE UP TO FOUR TIMES A DAY Dx:E11.4 100 Each 5 09/30/2019 Active Lancet Devices (EvalveTOUCH DELICA LANCING DEV) MISC Use four times a day Dx: E11.4 1 Each 0 09/30/2019 Active venlafaxine XR (EFFEXOR XR) 75 MG CP24 Take 1 Capsule by mouth in the morning. With 150mg tablet. 0 Active traZODone (DESYREL) 50 MG Tablet Take 1 Tablet by mouth at bedtime. 30 Tab 5 10/15/2019 Active Aspirin EC 81 MG Oral Tablet Delayed Release Take 1 Tablet by mouth in the morning. 0 03/27/2020 Active Fluticasone Propionate 50 MCG/ACT Nasal SuspensionIndicatio ns:PND (post-nasal drip) Administer 2 Sprays into each nostril daily. 9.9 mL 1 11/11/2020 Active NovoFine 32G X 6 MM (NOVOFINE 32G PEN NEEDLE) using twice a day with levemir 100 Each 5 12/11/2020 Active Nitroglycerin 0.4 MG Sublingual Tablet Sublingual (Nitrostat)Indicati ons:Chronic coronary artery disease Place under the tongue 1 Tablet every 5 minutes as needed for Pain, Chest. Max dose 3 tablets in 15 minutes 25 Tablet 5 09/24/2021 Active Lactulose 10 GM/15ML Oral Solution (Constulose)Indicat ions:Chronic liver disease and cirrhosis TAKE 45 ML BY MOUTH TWICE DAILY DIRECTED 2700 mL 5 10/04/2021 Active Additional Information Patient taking differently: TID(AM/NOON/HS), Reported on 03/03/2023 lamoTRIgine 100 MG Oral Tablet (LaMICtal) Take 1 Tablet by mouth every morning. 30 Tablet 5 03/12/2022 Active Insulin Glargine Solostar 100 UNIT/ML Subcutaneous Solution Pen-injector (Basaglar KwikPen)Indications :Type 2 diabetes mellitus with diabetic neuropathy, with long-term current use of insulin (HCC) Inject 30 units under the skin twice daily 45 mL 3 04/16/2022 Active Additional Information Patient taking differently: 20 Units BID (0700,1900), (No instructions reported), Reported on 03/03/2023 Insulin Glargine Solostar 100 UNIT/ML Subcutaneous Solution Pen-injector (Basaglar KwikPen)Indications :Type 2 diabetes mellitus with diabetic neuropathy, with long-term current use of insulin (HCC) Inject 30 units under the skin twice daily 45 mL 3 04/17/2022 Active Additional Information Patient taking differently: 20 Units, Inject 30 units under the skin twice daily, Reported on 03/03/2023 Atorvastatin Calcium 40 MG Oral Tablet (Lipitor)Indication s:Dyslipidemia, goal LDL below 70 Take by mouth 1 Tablet in the morning. 90 Tablet 3 04/25/2022 Active Spiriva Respimat 2.5 MCG/ACT Inhalation Aerosol Solution (Tiotropium Clarissa Monohydrate) Inhale by mouth 2 Puffs in the morning. 4 g 3 04/25/2022 Active Estradiol 0.1 MG/GM Vaginal Cream Administer into the vagina 1 g in the morning. 42.5 g 12 05/07/2022 Active Vitamin D (Ergocalciferol) 1.25 MG (41672 UT) Oral Capsule (Drisdol)Indication s:Vitamin D deficiency TAKE ONE CAPSULE BY MOUTH WEEKLY 12 Capsule 3 06/19/2022 Active AIRS Disposable Nebulizer Kit Use as directed 1 Kit 0 07/17/2022 Active Ipratropium-Albuter ol 0.5-2.5 (3) MG/3ML Inhalation Solution (Duoneb) Inhale 3 mL via nebulizer in the morning and 3 mL at noon and 3 mL in the evening and 3 mL before bedtime. 360 mL 3 08/05/2022 Active Trulicity 4.5 MG/0.5ML Subcutaneous Solution Pen-injector (Dulaglutide) INJECT 4.5 mg subcutaneously once per week 6 mL 3 08/20/2022 Active Additional Information Patient taking differently: INJECT 4.5 mg subcutaneously once per week (Wed), Reported on 03/03/2023 lamoTRIgine 25 MG Oral Tablet (LaMICtal) 1 Tablet. Taking 2 at bedtime and 1 in morning 0 09/08/2022 Active Albuterol Sulfate HFA 108 (90 Base) MCG/ACT Inhalation Aerosol SolutionIndications :Cough Use two puffs four times a day, as directed 18 g 3 11/07/2022 Active Pantoprazole Sodium 40 MG Oral Tablet Delayed Release (Protonix)Indicatio ns:Gastroesophageal reflux disease without esophagitis TAKE ONE TABLET BY MOUTH IN THE MORNING AND ONE TABLET IN THE EVENING 60 Tablet 12/07/2022 Active Dicyclomine HCl 10 MG Oral Capsule (Bentyl)Indications :Abdominal pain TAKE ONE CAPSULE BY MOUTH FOUR TIMES DAILY NEEDED FOR ABDOMINAL PAIN 120 Capsule 3 12/08/2022 Active Ondansetron HCl 8 MG Oral Tablet (Zofran)Indications :Nausea TAKE 1 TABLET BY MOUTH EVERY 8 HOURS NEEDED FOR NAUSEA 60 Tablet 5 12/09/2022 Active Levothyroxine Sodium 88 MCG Oral Tablet (Levoxyl)Indication s:Hypothyroidism take one tablet by mouth daily at least 30 minutes before breakfast and other medications 90 Tablet 3 12/10/2022 Active Xifaxan 550 MG Oral Tablet (rifAXIMin)Indicati ons:GONZALEZ (nonalcoholic steatohepatitis),Ch ronic liver disease and cirrhosis,Hepatic encephalopathy (HCC) TAKE 1 TABLET BY MOUTH TWICE DAILY 60 Tablet 5 12/16/2022 Active Montelukast Sodium 10 MG Oral Tablet (Singulair)Indicati ons:Nasal sinus congestion,PND (post-nasal drip) TAKE 1 TABLET BY MOUTH ONCE DAILY 90 Tablet 1 12/19/2022 Active UltiCare Pen Wittmann 31G X 5 MM (Insulin Pen Needle) use TWICE DAILY 200 Each 3 12/23/2022 Active Torsemide 20 MG Oral Tablet (Demadex)Indication s:Atherosclerotic heart disease of huslia coronary artery with other forms of angina pectoris (HCC),Hypertensive heart disease with chronic diastolic congestive heart failure (HCC) TAKE 1 TABLET BY MOUTH EVERY MORNING. MAY TAKE 1 ADDITIONAL TABLET NEEDED FOR SWELLING. 90 Tablet 1 12/24/2022 Active Spironolactone 50 MG Oral Tablet (Aldactone)Indicati ons:GONZALEZ (nonalcoholic steatohepatitis),Po rtal hypertension (HCC),Chronic liver disease and cirrhosis,Portal hypertensive gastropathy Take 1 tablet by mouth in the morning and before bedtime 180 Tablet 3 01/16/2023 Active Sucralfate 1 GM Oral Tablet (Carafate)Indicatio ns:Gastroesophageal reflux disease with esophagitis without hemorrhage TAKE 1 TABLET BY MOUTH EVERY MORNING 90 Tablet 0 01/17/2023 Active OneTouch Verio In Vitro Strip (Glucose Blood)Indications:T ype 2 diabetes mellitus with diabetic neuropathy, with long-term current use of insulin (HCC) use to test blood sugar 3 times daily 300 Strip 3 01/16/2023 Active Nystatin 756319 UNIT/ML Mouth/Throat Suspension SWISH AND SWALLOW 5ML IN THE MORNING AND 5ML AT NOON AND 5 ML IN THE EVENING AND 5ML BEFORE BEDTIME, FOR THRUSH 240 mL 1 01/28/2023 Active Vitamin C 500 MG Oral Tablet (Ascorbic Acid)Indications:Re current UTI Take 1 Tablet by mouth in the morning and 1 Tablet before bedtime. 60 Tablet 5 01/28/2023 Active Gabapentin 300 MG Oral Capsule (Neurontin)Indicati ons:Lumbar spondylosis TAKE 1 CAPSULE BY MOUTH TWICE DAILY 60 Capsule 5 02/10/2023 Active Polyethylene Glycol 3350 17 GM/SCOOP Oral Powder (MiraLax) Dissolve one heaping tablespoon in 8 ounces of water or juice daily as needed for constipation 510 g 5 03/20/2023 Active metFORMIN HCl ER 500 MG Oral Tablet Extended Release 24 Hour (Glucophage XR) TAKE 1 TABLET BY MOUTH ONCE DAILY with dinner 90 Tablet 2 03/21/2023 Active Budesonide-Formoter ol Fumarate 160-4.5 MCG/ACT Inhalation Aerosol (Symbicort) Inhale 2 Puffs by mouth in the morning and 2 Puffs before bedtime. 10.2 g 12 03/24/2023 Active Potassium Chloride Mag ER 20 MEQ Oral Tablet Extended Release take 1 tablet by mouth every morning. use when taking additional torsemide 30 Tablet 1 03/24/2023 Active Methenamine Hippurate 1 GM Oral Tablet (Hiprex)Indications :Recurrent UTI TAKE ONE TABLET BY MOUTH IN THE MORNING AND ONE TABLET BEFORE BEDTIME 60 Tablet 0 04/08/2023 Active Tamsulosin HCl 0.4 MG Oral Capsule (Flomax) TAKE 1 CAPSULE BY MOUTH EVERY MORNING 90 Capsule 0 04/11/2023 Active Famotidine 40 MG Oral Tablet (Pepcid)Indications :Gastroesophageal reflux disease with esophagitis without hemorrhage TAKE 1 TABLET BY MOUTH EVERY MORNING 90 Tablet 0 04/17/2023 Active Metoprolol Succinate ER 25 MG Oral Tablet Extended Release 24 Hour (toPROL XL)Indications:HTN, goal below 130/80 TAKE ONE TABLET BY MOUTH EVERY MORNING 90 Tablet 3 04/17/2023 Active oxyBUTYnin Chloride ER 10 MG Oral Tablet Extended Release 24 Hour (Ditropan XL) Take 1 Tablet by mouth in the morning. In the morning.. 90 Tablet 1 04/21/2023 Active Benzonatate 100 MG Oral Capsule (Tessalon Perles)Indications: Cough Take 1 Capsule by mouth 3 times a day as needed for Cough. 50 Capsule 0 05/05/2023 Active Nystatin 525178 UNIT/GM External Powder (Nystop)Indications :Candidal intertrigo Apply topically to affected area 3 times a day. Apply to right breast until rash resolved. 30 g 0 05/05/2023 Active cefepime IV IJ (AMBULATORY) Administer 1 g intravenously in the morning and 1 g before bedtime. Do all this for 7 days. 14 g 0 05/05/2023 05/12/20 23 Active Fluconazole 150 MG Oral Tablet (Diflucan) Take one tablet today and repeat dose in one week. 2 Tablet 0 05/05/2023 Active clonazePAM 0.5 MG Oral Tablet (KlonoPIN)Indicatio ns:Bipolar I disorder, most recent episode depressed, moderate (HCC) TAKE ONE TABLET BY MOUTH THREE TIMES DAILY 90 Tablet 0 05/07/2023 Active Morphine Sulfate ER 15 MG Oral Tablet Extended Release (Ms Contin)Indications: Lumbar spondylosis Take 1 Tablet by mouth at bedtime as needed for Pain, Severe. 30 Tablet 0 05/07/2023 Active documented as of this encounter (statuses as of 05/12/2023) Active Problems Problem Noted Date Diagnosed Date Medical home patient encounter 01/06/2023 Hypertensive heart and kidne y disease with chronic diastolic congestive heart failure and stage 3a chronic kidney disease 12/28/2021 Last Assessment & Plan: Euvolemic, BP stable EF 55% 09/25 GFR 69 02/25 -Continue Torsemide 20 mg BID, Spironolactone 25 mg BID, Tropol XL 50 mg daily Atherosclerotic heart diseas e of huslia coronary artery with other forms of angina pectoris 11/15/2021 Last Assessment & Plan: Stable. No angina -continue toprol, ASA and statin Seasonal allergies 11/15/2021 Recurrent UTI 10/07/2021 Last Assessment & Plan: Followed by urology Pt is supposed to be on methenamine--will need to clarify with dgt that she is giving this. 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-it sales consultant and ID Type 2 diabetes mellitus wit h diabetic neuropathy, with long-term current use of insulin 08/27/2021 Last Assessment & Plan: BS stable Last HgbA1C 7 12/26 -continue trulicity, lantus 30 u BID Type 2 diabetes mellitus wit h stage 3a chronic kidney disease, with long-term current use of insulin 08/27/2021 Last Assessment & Plan: Followed by MTM Basaglar 60 units daily Trulicity 4.5mg weekly Avoid nephrotoxic drugs Pelvic pain 03/27/2021 Urge incontinence 03/27/2021 nursing home (current) use of insulin 09/29/2019 Diabetic gastroparesis 04/28/2019 Type 2 diabetes mellitus with diabetic neuropath y 09/07/2018 Hypertensive heart disease w ith chronic diastolic congestive heart failure 05/06/2018 Fatty liver 05/06/2018 Chronic liver disease and cirrhosis 05/06/2018 Last Assessment & Plan: Followed by GI Reports compliance with lactulose. Stable today --spironolactone 50mg daily Portal hypertensive gastropathy 05/06/2018 Last Assessment & Plan: Followed by GI Endoscopy planned 01/16/22 Moderate aortic stenosis 05/06/2018 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 Anxiety 08/05/2017 Lhdvvwu-Xzcbd-Attrn disease 06/27/2015 Last Assessment & Plan: Frequent falls Home PT and OT continue MEDICATION USE AGREEMENT 01/17/2015 Overview: Signed 01/04/2015 HTN, goal below 130/80 09/06/2014 Bipolar I disorder, most recent episode depresse d, moderate 06/09/2012 Last Assessment & Plan: Slightly depressed today, but overall stable -continue effexor, lamictal, trazadone, and abilify Hypothyroidism 02/15/2011 Dyslipidemia, goal LDL below 70 02/12/2011 S/P angioplasty with stent 02/01/2010 Gastroesophageal reflux disease without esophagi tis 05/04/2004 Overview: Updated due to amp error PERONEAL MUSCLE ATROPHY 12/31/2002 GONZALEZ (nonalcoholic steatohepatitis) documented as of this encounter (statuses as of 05/12/2023) Resolved Problems Problem Noted Date Diagnosed Date Resolved Date Open wound of left heel 03/12/202208/2022 Last Assessment & Plan: Pressure ulcer -off loading. Use waffle boots. Keep clean and dry -wound care referral Other chronic pain 12/31/2021 Last Assessment & Plan: Chronic pain medication managed by pcp --gabapentin 300mg BID --morphine 15mg q 12hrs --Oxy IR 1 tab every 8 hours prn Acute cystitis without hematuria 03/27/2021 07/08/2022 Mild protein-calorie malnutrition 05/07/2018 04/29/2019 Diabetes mellitus with neuropathy 05/06/2018 09/07/2018 Other cirrhosis of liver 05/06/2018 Atherosclerotic heart diseas e of huslia coronary artery with other forms of angina pectoris 05/06/2018 08/27/2021 Thrombocytopenia 05/06/2018 02/09/2021 Portal hypertension 05/06/2018 08/28/19 19 Hepatic encephalopathy 05/06/201808/27 Uncontrolled type 1 diabetes mellitus with complication, with long-term current use of insulin 09/07/2015 05/07/2018 Overview: ICD-10 update of inactive term Bilateral low back pain without sciatica 06/23/2015 08/28/2018 Abnormal results of liver function studies 05/27/2014 07/19/2014 Unstable angina 05/26/2014 08/05/2017 ASCVD (arteriosclerotic card iovascular disease) 05/26/2014 05/26/2014 Recurrent falls 05/26/2014 08/28/2018 Nausea 05/26/2014 07/19/2014 Overview: ICD-10 update of inactive term Cutaneous candidiasis 01/21/20142018 Intertrigo 01/21/2014 07/19/2014 Elevated CK 06/09/2012 07/19/2014 Chest pain 06/09/2012 07/19/2014 Falls frequently 06/09/2012 07/19/2014 Edema 06/09/2012 08/28/2018 UTI (urinary tract infection) 05/26/2012 07/19/2014 Dysuria 05/26/2012 07/19/2014 Urinary frequency 05/26/2012 07/19/2014 Urinary incontinence 05/26/2012 023 Overview: ICD-10 update of inactive term MEDICATION USE AGREEMENT 05/26/2012 Overview: 05/26/12 Lumbago 05/26/2012 07/19/2014 HTN, goal below 140/80 02/24/201209/06 Overview: Per HTN Protocol #27. Severe obesity with body mas s index (BMI) of 35.0 to 39.9 with serious comorbidity 02/04/2012 Overview: bmi= 38.85 02/04/12 ICD-10 update of inactive diagnosis Delirium 02/04/2012 07/19/2014 Sepsis 02/04/2012 07/19/2014 Cellulitis of left foot 02/04/201206/07 Sundowning 02/04/2012 07/19/2014 S/P CABG x 1 07/17/2011 08/19/2012 ASCVD (arteriosclerotic card iovascular disease) 07/17/2011 09/07/2018 Elevated liver enzymes 06/25/201106/27 Unstable angina 02/12/2011 01/21/2014 Recurrent In-stent stenosis 10/31/2010 08/28/2018 Acute coronary syndrome 10/30/201001/04 NEW [employer] Research Other*[id number] 02/02/2010 04/18/2014 Overview: [place] [facility], Dr Joel CASAS Obesity, morbid (more than 1 00 lbs over ideal weight or BMI > 40) 10/03/2009 06/27/2015 Overview: Per Obesity Taxonomy, referred to Dr. Portillo 04/10. HTN, goal below 130/80 08/02/200902/26 Overview: Per HTN Taxonomy. Type 2 diabetes mellitus wit h hemoglobin A1c goal of less than 7.0% 05/04/2009 09/07/2015 Overview: Per Diabetes Taxonomy. diet controlled, 03/07/05 hgba1c 5.4 ICD-10 update of inactive term Chronic coronary artery disease 04/11/2009 04/11/2009 Overview: S/P Bare metal stent of proximal LAD Chronic coronary artery disease 04/11/2009 08/28/2018 Overview: S/P bare metal stent of RCA Other nonspecific abnormal c ardiovascular system function study 04/05/2009 01/21/2014 Chest pain 04/05/2009 02/12/2011 Venous thrombosis 07/08/2006 08/04/2008 Overview: Resolved per Duplicate Protocol #2. 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/2014 nursing home current use of ant icoagulant therapy 06/17/2006 01/21/2014 Overview: ICD-10 update of inactive term Anticoagulation management encounter 06/17/2006 01/21/2014 BACKACHE NOS 02/06/2005 01/21/2014 ADVANCE DIRECTIVE INFORMATION 02/04/2005 08/05/2017 Overview: No, Advance Directive brochure given to patient at prior appointment. CHRONIC UTI (Klebsiella) 02/04/2005 Overview: referred to Urology. ACUTE SINUSITIS NOS 11/05/2004 05/06/20 ACUTE URI NOS 11/05/2004 05/06/2005 ACUTE PHARYNGITIS 11/05/2004 05/06/2005 Volume depletion 11/05/2004 05/06/2005 Fever and other physiologic disturbances of temperature regulation 11/05/2004 05/06/2005 Overview: ICD-10 update of inactive term BIPOLAR, Depressed - INPT ADMISSION NOTE 08/14/2004 05/26/2014 Overview: [place] from 08/06/04 - 08/17/04 (dx's with bipolar d/o, w/ depression) dc meds: lexapro 20mg qhs, depakote 1000mg qhs, clonazepam 0.5mg bid. started remeron (08/11) 15mg qhs, d/c'd ambien, valium prn. MIGRAINE, NOS 05/25/2004 01/21/2014 Dysuria 05/25/2004 01/21/2014 Morbid obesity, BMI not known 05/25/2004 10/03/2009 Overview: Per Obesity Taxonomy, referred to Dr. Portillo 04/10. ELECTROLYT-FLUID DIS NEC 05/25/2004 PREMENSTRUAL TENSION 05/04/2004 006 Type 2 diabetes mellitus wit h hemoglobin A1c goal of less than 7.0% 05/04/2004 05/04/2009 Overview: Per Diabetes Taxonomy. diet controlled, 03/07/05 hgba1c 5.4 ICD-10 update of inactive term HTN, goal below 140/90 05/04/200408/02 Overview: Per HTN Taxonomy. Carpal tunnel syndrome 12/31/200211/05 documented as of this encounter (statuses as of 05/12/2023) Immunizations Name Administration Dates Next Due COVID-19 mRNA, LNP-s, No Pre serve, 2-Dose Series (Moderna) 06/10/2021,08/29/2020,08/01/2020 Pneumococcal Conjugate Vacc, 13 Valent (Prevnar) 02/14/2017 Pneumococcal Polysaccharide PPV23 (Pneumovax) 02/06/2016,06/26/2011,06/04/2006,06/26 SEASONAL INFLUENZA, PF, 6 M & Above, IM , (FLULAVAL or FLUZONE) 04/12/2019,05/08/2018,07/16/2017 Season Influenza, Quad, PF, Adjuvanted, 65+ Yrs, IM (FLUAD) 05/22/2020 Seasonal Influenza Virus Vac cine, Unspecified Formulation 03/14/2022,04/10/2021,05/22/2020,04/12,05/08/2018,07/16/2017,03/21/2015 ,04/28/2013,04/09/2012,06/11/2011,03/08,04/10/2009,04/06/2008, 7,06/04/2006 Seasonal Influenza, Quadriva lent Hd (Fluzone Hd) 03/14/2022,04/10/2021 Seasonal Influenza, Split, I IV3, With Preserve, Inj 03/21/2015,04/28/2013,04/09/2012,06/11,03/29/2010,04/10/2009,04/06/2008 ,05/12/2007,06/04/2006 TDAP (age 10 and older)(Boostrix) 06/27/2015 Varicella Zoster Vaccine (Adult) 08/09/2016,03/2016 documented as of this encounter Social History Tobacco Use Types Packs/Day Years Used Date Smoking Tobacco: Never Passive Smoke Exposure: Past Smokeless Tobacco: Never Comments:Parents and then hu sband smoked Alcohol Use Standard Drinks/Week Comments No 0 (1 standard drink = 0.6 oz pur e alcohol) PHQ-2 Answer Date Recorded PHQ-2 Score 13 05/22/2020 Hunger Vital Sign Answer Date Recorded Worried About Running Out of Food in the Last Ye ar Never true 02/22/2019 Ran Out of Food in the Last Year Never true 02/22/2019 Sex and Gender Information Value Date Recorded Sex Assigned at Female 11/04/2018 4:56 PM EDT Gender Identity Female 11/04/2018 4:56 PM EDT Sexual Orientation Straight 11/04/2018 4: 56 PM EDT Job Start Date Occupation Industry Not on file Not on file Not on file documented as of this encounter Miscellaneous Notes * Telephone Encounter - Nayla Bellamy RN - 05/06/2023 10:19 AM EDT Received teams message from provider, Lashay Brock, patient will need IVABX changed to Cefepime. Called and spoke with MT at [facility], they do have openings today. Order faxed to them, and spoke withnurse Waddell who reports they do have availability today to get this scheduled. Called and left a detailed VM on daughter Denise identified VM notifying here alex order was sent to [facility] and she can reach out to the central scheduling line at the hospital to set up this firstdose infusion. documented in this encounter Plan of Treatment Upcoming Encounters Date Type Department Care Team (Late st Contact Info) Description 05/12/2023 3:00 PM EST Telemedicine [facility], [place] [address] [place] [address] Lashay Blevins PA-C [address] [place] [address] [facility] [address] [place] [address] 06/25/2023 12:40 PM EST Office Visit Infectious Disease [facility] [place] [address] [facility] [place] [address] Vidya Fabian MD [address] [place] [address] 07/14/2023 9:20 AM EST Office Visit Pulmonary Medicine, [place] [address] [place] [address] Mary Grace Johnson MD [address] [place] [address] 08/04/2023 3:45 PM EST Telemedicine [facility] [address] [place] [address] Alfredo Panda MD [address] [place] [address] 7, Telemed [facility] Urology Ex Rm [address] [facility] [place] [address] 08/12/2023 6:20 PM EST Office Visit [facility] [address] [place] [id number] Brian Domínguez MD [address] [place] [address] 09/19/2023 1:00 PM EDT Cardiac Studies Cardiac Studies, [facility] [address] [place] [address] 11/06/2023 11:00 AM EDT Office Visit Cardiology, [facility] [address] [facility] [place] [address] Sobia Brewster, JIMMY [address] [place] [address] Scheduled Procedures Name Priority Associated Diagnoses Date/Ti me COLONOSCOPY FLEXIBLE PROXIMA L DIAGNOSTIC Recall Special screening for malignant neoplasms, colon Health Maintenance Due Date Last Done Comments DXA Scan 1949 Cologuard 1994 Fecal Occult Blood Test 1994 Sigmoidoscopy 1994 Hepatitis B (1 of 3 - Risk 3-dose series) 2009 Mammogram 07/04/2011 07/04/2010 Zoster Vaccines (2 of 3) 10/04/2016 08/09/2016, 03/2016 Depression, Most Recent Score >= 10 (will fire each visit until score < 10) 05/23/2020 05/22/2020 Diabetic Foot Exam 05/22/2021 05/22/2020, 0 02/22/2019, 11/04/2017, Additional history exists Diabetic Eye Exam 06/05/2021 06/05/2020, , 12/23/2012, Additional history exists COVID-19 Vaccine ( season) 2023 06/10/2021, 08/29/2020, 08/01/2020 Influenza Vaccine (FLU shot) (#1) 2023 03/14/2022, 03/14/2022, 04/10/2021, Additional history exists HbA1c 04/24/2023 10/23/2022, 04/07, 11/01/2021, Additional history exists Albumin/Creatinine Ratio 10/24/2023 023, 07/17/2022, 10/05/2020, Additional history exists CKD PHOS USE SMARTSET 70480 10/24/202310/05, 02/18/2022, 02/17/2022, Additional history exists GFR 11/06/2023 05/08/2023, 02/04, 02/11/2023, Additional history exists TSH 02/14/2024 02/13/2023, 10/05, 02/28/2022, Additional history exists CKD HGB USE SMARTSET 23277 05/08/202405/08, 05/08/2023, 02/18/2023, Additional history exists Colonoscopy 05/20/2024 05/20/2014 Colorectal Cancer Screening 05/20/2024 DTaP,Tdap,and Td Vaccines (2 - Td or Tdap) 06/27/2025 06/27/2015 Hepatitis C Screening Completed 07/04/2011, 011 Pneumococcal Vaccine: 65+ Years Completed 02/14/2017, 02/06/2016, 06/26/2011, Additional history exists GARDASIL-HPV IMMUNIZATION SERIES Aged Out No longer eligible based on patient's age to complete this topic MENINGOCOCCAL (MENACTRA/MENVEO) Aged Out No longer eligible based on patient's age to complete this topic documented as of this encounter Medical Devices Implanted Type Area Pizzamaker Device Identifier Shelf Expiration Date Model / Serial / Lot Jenna Denny [id number] - [id number] Implanted:Qty: 1 on 02/15/2011 at [place] [facility] [place]: Chest DO NOT USE 07/21/2015 [id number] / / [id number] documented as of this encounter Advance Directives Documents on File Type Date Recorded 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 Question Answer Comments Discussion of Advance Directives occurred with: Patient Does the patient have a Living Will? No Does the patient have Health Care Power of Produce Production Team Member? No Code Status History Code Status Date Activated Date Inactivated Comments Full Code 02/15/2011 5:07 PM 02/21/2011 5:20 PM This order reflects the patients wishes and were consensually agreed upon. Full Code 02/11/2011 8:42 PM 02/15/2011 12:17 PM This order reflects the patients wishes and were consensually agreed upon. Question Answer Comments Discussion of Advance Directives occurred with: Patient Full Code 10/29/2010 4:36 PM 10/30/2010 7:14 PM This order reflects the patients wishes and were consensually agreed upon. Question Answer Comments Discussion of Advance Directives occurred with: Not Discussed Does the patient have a Living Will? No Does the patient have Health Care Power of Produce Production Team Member? No Full Code 02/01/2010 4:02 PM 02/02/2010 4:09 PM This order reflects the patients wishes and were consensually agreed upon. Question Answer Comments Discussion of Advance Directives occurred with: Not Discussed Does the patient have a Living Will? No Does the patient have Health Care Power of Produce Production Team Member? No Healthcare Agents on File Name Relationship Healthcare Agent [facility] p Communication Carolyn Goldmangerard Adult Child Health Care Agent Care Teams Propellant Charge Zone Assembler Relationship Specialty Start Date End Date Brian Domínguez MD [address] [place] [address] PCP - General Family Medicine 07/16/17 documented as of this encounter
--- OUTSIDE RECORDS SUMMARY | 2023-05-17 12:03 | External Medical Summary ---
Author Name Unknown Address Unknown Organization [id number]:[facility] - [address] [facility] [place] [address] Laboratory Report Ordering Provider Test Date Status LETTY UMANZOR 05/08/2023 09:39:00 Final Observation Date Value Abnormality Reference (Units ) Status SYNC LEUKOCYTES IN BLOOD BY AUTOMATED COUNT 05/08/2023 09:39:00 10.19 4.00-10.80 (K/uL) Final Segs 05/08/2023 09:39:00 64.3 40.0-75.0 (%) Final Lymphs % 05/08/2023 09:39:00 23.7 18.0-42.0 (%) Final Monos 05/08/2023 09:39:00 7.0 1.0-11.0 (%) Final Eosinophils 05/08/2023 09:39:00 3.4 0.0-6.0 (%) Final Basos 05/08/2023 09:39:00 0.8 0.0-2.0 (%) Final Immature Granulocyte, Percent 05/08/2023 09:39:00 0.8 0.0-2.0 (%) Final Absolute Segs 05/08/2023 09:39:00 6.55 1.80-7.70 (K/uL) Final Lymphs, absolute 05/08/2023 09:39:00 2.42 1.00-4.80 (K/ul) Final Monos, Abs 05/08/2023 09:39:00 0.71 0.00-1.10 (K/uL) Final Eos, Abs 05/08/2023 09:39:00 0.35 0.00-0.70 (K/uL) Final Basos, Abs 05/08/2023 09:39:00 0.08 0.00-0.20 (K/uL) Final Immature Granulocytes, Number 05/08/2023 09:39:00 0.08 0.00-0.20 (K/uL) Final Performing Location [facility] [place] [address] [facility] [address]
--- OUTSIDE RECORDS SUMMARY | 2023-05-17 12:03 | External Medical Summary ---
Author Name Unknown Address Unknown Organization [id number]:[facility] [facility] [address] [place] [address] Laboratory Report Ordering Provider Test Date Status LETTY UMANZOR 05/08/2023 09:39:00 Final Observation Date Value Abnormality Reference (Units ) Status BUN 05/08/2023 09:39:00 12 6-20 (mg/dL) Final Creatinine 05/08/2023 09:39:00 1.1 Above high normal 0.5-1.0 (mg/dL) Final Glomerular filtration rate/1.73 sq M.predicted [Volume Rate/Area] in Serum, Plasma or Blood by Creatinine-based formula (CKD-EPI) 05/08/2023 09:39:00 51 Below low normal >=60 (mL/min) Final eGFR is calculated based on the CKD-EPI 2020 equation SODIUM 05/08/2023 09:39:00 132 Below low normal 135 -146 (mmol/L) Final Potassium 05/08/2023 09:39:00 4.4 3.5-5.1 (m mol/L) Final Cl 05/08/2023 09:39:00 92 Below low normal 98- 107 (mmol/L) Final CO2 05/08/2023 09:39:00 25 22-32 (mmo l/L) Final Anion gap 05/08/2023 09:39:00 15 7-15 (mmol /L) Final Glucose 05/08/2023 09:39:00 156 Above high normal 70 -120 (mg/dL) Final Albumin 05/08/2023 09:39:00 4.0 3.8-5.0 (g /dL) Final AST (Aspartate aminotransferase) 05/08/2023 09:39:00 28 10-35 (U/L) Fin al Result may be falsely elevat ed due to hemolysis. Alk Phos 05/08/2023 09:39:00 166 Above high normal 35 -130 (U/L) Final Bilirubin, Total 05/08/2023 09:39:00 1.0 <=1 .2 (mg/dL) Final Calcium 05/08/2023 09:39:00 9.3 8.4-10.2 ( mg/dL) Final Protein 05/08/2023 09:39:00 6.8 6.0-8.3 (g /dL) Final ALT (Alanine aminotransferase) 05/08/2023 09:39:00 17 10-35 (U/L) Dilan hahn Performing Location [facility]ORY [facility] [address] [facility] [address]
--- OUTSIDE RECORDS SUMMARY | 2023-05-17 12:03 | External Medical Summary | Summary of Care ---
Author Name Unknown Organization [facility] Address [address] [place] [address] Phone [phone] Care Team Providers Care Sheriff'S Sergeant Name Role Phone Carmen Sifuentes MD Primary Care Provider [phone]- [phone] Reason for Referral * Medication Prior Authorization - Pending Review Specialty Diagnoses / Procedures Referred By Contac t Referred To Contact Diagnoses Lumbar spondylosis Carmen Sifuentes MD [address] [place] [address] Referral ID Status Reason Start Date Expiration Date V isits Requested Visits Authorized [id number] Pending Review [id number] Reason for Visit * Reason Onset Date Comments Medication Refill 05/06/2023 Encounter Details Date Type Department Care Team (Late st Contact Info) Description 05/06/[address] [facility] [address] [place] [phone] Carmen Sifuentes MD [address] [place] [address] Bipolar I disorder, most recent episode depressed, moderate (HCC); Lumbar spondylosis Allergies Active Allergy Reactions Criticality Noted Date Comments Propoxyphene Hcl Rash Low 10/29/2010 Fentanyl Diarrhea Low 04/26/2010 anxiety Methocarbamol Medium 10/05/2020 Other reaction(s): Delirium Methocarbamol Low 04/15/2007 Zolpidem Low 10/05/2020 Other reaction(s): Confusion documented as of this encounter (statuses as of 05/07/2023) Medications Medication Sig Dispensed Refills Start Date End Date Status ARIPiprazole (ABILIFY) 2 MG Tablet Take 1 Tablet by mouth in the morning. 0 6 Active venlafaxine XR (EFFEXOR XR) 150 MG [id number]:Dep ression Take 1 Cap by mouth daily. With food. 30 Cap 5 7 Active Additional Information Patient taking differently: 225 mgOral Daily(AM),Taking a total of 225 mg, Indications: Takes 225 mg total every morning with food (150 mg tab + 75 mg tab), Reported on 03/03/2023 Blood Glucose Monitoring Suppl ([employer] GLUCOMETER) w/Device KITIndications:Unco ntrolled type 2 diabetes mellitus without complication, without long-term current use of insulin Use as directed. Use as directed once daily 1 Kit 0 8 Active Blood Glucose Monitoring Suppl ([employer] VERIO) w/Device KIT Use as directed. Use as directed. 1 Kit 0 9 Active Spacer/Aero-Holding Chambers WISAM Use with inhaler. Wheezing/bronchiti s. 1 Device 0 9 Active OneTouch Delica Lancets 33G MISC USE UP TO FOUR TIMES A DAY Dx:E11.4 100 Each 5 0 Active Lancet Devices (ONETOUCH DELICA LANCING DEV) MISC Use four times a day Dx: E11.4 1 Each 0 0 Active venlafaxine XR (EFFEXOR XR) 75 MG CP24 Take 1 Capsule by mouth in the morning. With 150mg tablet. 0 Active traZODone (DESYREL) 50 MG Tablet Take 1 Tablet by mouth at bedtime. 30 Tab 5 0 Active Aspirin EC 81 MG Oral Tablet Delayed Release Take 1 Tablet by mouth in the morning. 0 0 Active Fluticasone Propionate 50 MCG/ACT Nasal SuspensionIndicatio ns:PND (post-nasal drip) Administer 2 Sprays into each nostril daily. 9.9 mL 1 1 Active NovoFine 32G X 6 MM (NOVOFINE 32G PEN NEEDLE) using twice a day with levemir 100 Each 5 1 Active Nitroglycerin 0.4 MG Sublingual Tablet Sublingual (Nitrostat)Indicati ons:Chronic coronary artery disease Place under the tongue 1 Tablet every 5 minutes as needed for Pain, Chest. Max dose 3 tablets in 15 minutes 25 Tablet 5 2 Active Lactulose 10 GM/15ML Oral Solution (Constulose)Indicat ions:Chronic liver disease and cirrhosis TAKE 45 ML BY MOUTH TWICE DAILY DIRECTED 2700 mL 5 2 Active Additional Information Patient taking differently: TID(AM/NOON/HS), Reported on 03/03/2023 lamoTRIgine 100 MG Oral Tablet (LaMICtal) Take 1 Tablet by mouth every morning. 30 Tablet 5 2 Active Insulin Glargine Solostar 100 UNIT/ML Subcutaneous Solution Pen-injector (Basaglar KwikPen)Indications :Type 2 diabetes mellitus with diabetic neuropathy, with long-term current use of insulin (HCC) Inject 30 units under the skin twice daily 45 mL 3 2 Active Additional Information Patient taking differently: 20 Units BID (0700,1900), (No instructions reported), Reported on 03/03/2023 Insulin Glargine Solostar 100 UNIT/ML Subcutaneous Solution Pen-injector (Basaglar KwikPen)Indications :Type 2 diabetes mellitus with diabetic neuropathy, with long-term current use of insulin (HCC) Inject 30 units under the skin twice daily 45 mL 3 2 Active Additional Information Patient taking differently: 20 Units, Inject 30 units under the skin twice daily, Reported on 03/03/2023 Atorvastatin Calcium 40 MG Oral Tablet (Lipitor)Indication s:Dyslipidemia, goal LDL below 70 Take by mouth 1 Tablet in the morning. 90 Tablet 3 2 Active Spiriva Respimat 2.5 MCG/ACT Inhalation Aerosol Solution (Tiotropium [place] Monohydrate) Inhale by mouth 2 Puffs in the morning. 4 g 3 2 Active Estradiol 0.1 MG/GM Vaginal Cream Administer into the vagina 1 g in the morning. 42.5 g 12 2 Active Vitamin D (Ergocalciferol) 1.25 MG (75552 UT) Oral Capsule (Drisdol)Indication s:Vitamin D deficiency TAKE ONE CAPSULE BY MOUTH WEEKLY 12 Capsule 3 2 Active AIRS Disposable Nebulizer Kit Use as directed 1 Kit 0 3 Active Ipratropium-Albuter ol 0.5-2.5 (3) MG/3ML Inhalation Solution (Duoneb) Inhale 3 mL via nebulizer in the morning and 3 mL at noon and 3 mL in the evening and 3 mL before bedtime. 360 mL 3 3 Active Trulicity 4.5 MG/0.5ML Subcutaneous Solution Pen-injector (Dulaglutide) INJECT 4.5 mg subcutaneously once per week 6 mL 3 3 Active Additional Information Patient taking differently: INJECT 4.5 mg subcutaneously once per week (Fri), Reported on 03/03/2023 lamoTRIgine 25 MG Oral Tablet (LaMICtal) 1 Tablet. Taking 2 at bedtime and 1 in morning 0 3 Active Albuterol Sulfate HFA 108 (90 Base) MCG/ACT Inhalation Aerosol SolutionIndications :Cough Use two puffs four times a day, as directed 18 g 3 3 Active Pantoprazole Sodium 40 MG Oral Tablet Delayed Release (Protonix)Indicatio ns:Gastroesophageal reflux disease without esophagitis TAKE ONE TABLET BY MOUTH IN THE MORNING AND ONE TABLET IN THE EVENING 60 Tablet 5 3 Active Dicyclomine HCl 10 MG Oral Capsule (Bentyl)Indications :Abdominal pain TAKE ONE CAPSULE BY MOUTH FOUR TIMES DAILY NEEDED FOR ABDOMINAL PAIN 120 Capsule 3 3 Active Ondansetron HCl 8 MG Oral Tablet (Zofran)Indications :Nausea TAKE 1 TABLET BY MOUTH EVERY 8 HOURS NEEDED FOR NAUSEA 60 Tablet 5 3 Active Levothyroxine Sodium 88 MCG Oral Tablet (Levoxyl)Indication s:Hypothyroidism take one tablet by mouth daily at least 30 minutes before breakfast and other medications 90 Tablet 3 3 Active Xifaxan 550 MG Oral Tablet (rifAXIMin)Indicati ons:GONZALEZ (nonalcoholic steatohepatitis),Ch ronic liver disease and cirrhosis,Hepatic encephalopathy (HCC) TAKE 1 TABLET BY MOUTH TWICE DAILY 60 Tablet 5 3 Active Montelukast Sodium 10 MG Oral Tablet (Singulair)Indicati ons:Nasal sinus congestion,PND (post-nasal drip) TAKE 1 TABLET BY MOUTH ONCE DAILY 90 Tablet 1 3 Active UltiCare Pen [place] 31G X 5 MM (Insulin Pen Needle) use TWICE DAILY 200 Each 3 3 Active Torsemide 20 MG Oral Tablet (Demadex)Indication s:Atherosclerotic heart disease of [place] coronary artery with other forms of angina pectoris (HCC),Hypertensive heart disease with chronic diastolic congestive heart failure (HCC) TAKE 1 TABLET BY MOUTH EVERY MORNING. MAY TAKE 1 ADDITIONAL TABLET NEEDED FOR SWELLING. 90 Tablet 1 3 Active Spironolactone 50 MG Oral Tablet (Aldactone)Indicati ons:GONZALEZ (nonalcoholic steatohepatitis),Po rtal hypertension (HCC),Chronic liver disease and cirrhosis,Portal hypertensive gastropathy Take 1 tablet by mouth in the morning and before bedtime 180 Tablet 3 3 Active Sucralfate 1 GM Oral Tablet (Carafate)Indicatio ns:Gastroesophageal reflux disease with esophagitis without hemorrhage TAKE 1 TABLET BY MOUTH EVERY MORNING 90 Tablet 0 3 Active OneTouch Verio In Vitro Strip (Glucose Blood)Indications:T ype 2 diabetes mellitus with diabetic neuropathy, with long-term current use of insulin ([facility]) use to test blood sugar 3 times daily 300 Strip 3 3 Active Nystatin 369674 UNIT/ML Mouth/Throat Suspension SWISH AND SWALLOW 5ML IN THE MORNING AND 5ML AT NOON AND 5 ML IN THE EVENING AND 5ML BEFORE BEDTIME, FOR THRUSH 240 mL 3 Active Vitamin C 500 MG Oral Tablet (Ascorbic Acid)Indications:Re current UTI Take 1 Tablet by mouth in the morning and 1 Tablet before bedtime. 60 Tablet 5 3 Active Gabapentin 300 MG Oral Capsule (Neurontin)Indicati ons:Lumbar spondylosis TAKE 1 CAPSULE BY MOUTH TWICE DAILY 60 Capsule 5 3 Active Polyethylene Glycol 3350 17 GM/SCOOP Oral Powder (MiraLax) Dissolve one heaping tablespoon in 8 ounces of water or juice daily as needed for constipation 510 g 5 3 Active metFORMIN HCl ER 500 MG Oral Tablet Extended Release 24 Hour (Glucophage XR) TAKE 1 TABLET BY MOUTH ONCE DAILY with dinner 90 Tablet 2 3 Active Budesonide-Formoter ol Fumarate 160-4.5 MCG/ACT Inhalation Aerosol (Symbicort) Inhale 2 Puffs by mouth in the morning and 2 Puffs before bedtime. 10.2 g 12 3 Active Potassium Chloride Mag ER 20 MEQ Oral Tablet Extended Release take 1 tablet by mouth every morning. use when taking additional torsemide 30 Tablet 1 3 Active Methenamine Hippurate 1 GM Oral Tablet (Hiprex)Indications :Recurrent UTI TAKE ONE TABLET BY MOUTH IN THE MORNING AND ONE TABLET BEFORE BEDTIME 60 Tablet 0 3 Active Tamsulosin HCl 0.4 MG Oral Capsule (Flomax) TAKE 1 CAPSULE BY MOUTH EVERY MORNING 90 Capsule 0 3 Active Famotidine 40 MG Oral Tablet (Pepcid)Indications :Gastroesophageal reflux disease with esophagitis without hemorrhage TAKE 1 TABLET BY MOUTH EVERY MORNING 90 Tablet 0 3 Active Metoprolol Succinate ER 25 MG Oral Tablet Extended Release 24 Hour (toPROL XL)Indications:HTN, goal below 130/80 TAKE ONE TABLET BY MOUTH EVERY MORNING 90 Tablet 3 3 Active oxyBUTYnin Chloride ER 10 MG Oral Tablet Extended Release 24 Hour (Ditropan XL) Take 1 Tablet by mouth in the morning. In the morning.. 90 Tablet 1 3 Active Benzonatate 100 MG Oral Capsule (Tessalon Perles)Indications: Cough Take 1 Capsule by mouth 3 times a day as needed for Cough. 50 Capsule 0 3 Active Nystatin 916828 UNIT/GM External Powder (Nystop)Indications :Candidal intertrigo Apply topically to affected area 3 times a day. Apply to right breast until rash resolved. 30 g 0 3 Active cefepime IV IJ (AMBULATORY) Administer 1 g intravenously in the morning and 1 g before bedtime. Do all this for 7 days. 14 g 0 3 05/12/20 23 Active Fluconazole 150 MG Oral Tablet (Diflucan) Take one tablet today and repeat dose in one week. 2 Tablet 0 3 Active clonazePAM 0.5 MG Oral Tablet (KlonoPIN)Indicatio ns:Bipolar I disorder, most recent episode depressed, moderate (HCC) TAKE ONE TABLET BY MOUTH THREE TIMES DAILY 90 Tablet 0 3 Active Morphine Sulfate ER 15 MG Oral Tablet Extended Release (Ms Contin)Indications: Lumbar spondylosis Take 1 Tablet by mouth at bedtime as needed for Pain, Severe. 30 Tablet 0 3 Active clonazePAM 0.5 MG Oral Tablet (KlonoPIN)Indicatio ns:Bipolar I disorder, most recent episode depressed, moderate (HCC) TAKE ONE TABLET BY MOUTH THREE TIMES DAILY 90 Tablet 0 3 05/06/20 23 Discontinu ed(Refill) Morphine Sulfate ER 15 MG Oral Tablet Extended Release (Ms Contin)Indications: Lumbar spondylosis Take 1 Tablet by mouth at bedtime as needed for Pain, Severe. 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 1 g IVPB Q12H 05/06/2023 05/11/2023 Active documented as of this encounter (statuses as of 05/07/2023) Active Problems Problem Noted Date Diagnosed Date Medical home patient encounter 01/06/2023 Hypertensive heart and kidne y disease with chronic diastolic congestive heart failure and stage 3a chronic kidney disease 12/28/2021 Last Assessment & Plan: Euvolemic, BP stable EF 55% 09/25 GFR 69 02/25 -Continue Torsemide 20 mg BID, Spironolactone 25 mg BID, Tropol XL 50 mg daily Atherosclerotic heart diseas e of [place] coronary artery with other forms of angina pectoris 11/15/2021 Last Assessment & Plan: Stable. No angina -continue toprol, ASA and statin Seasonal allergies 11/15/2021 Recurrent UTI 10/07/2021 Last Assessment & Plan: Followed by urology Pt is supposed to be on methenamine--will need to clarify with dgt that she is giving this. 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/2014 FDC current use of ant icoagulant therapy 06/17/2006 01/21/2014 Overview: ICD-10 update of inactive term Anticoagulation management encounter 06/17/2006 01/21/2014 BACKACHE NOS 02/06/2005 01/21/2014 ADVANCE DIRECTIVE INFORMATION 02/04/2005 08/05/2017 Overview: No, Advance Directive brochure given to patient at prior appointment. CHRONIC UTI (Klebsiella) 02/04/2005 Overview: referred to Urology. ACUTE SINUSITIS NOS 11/05/2004 05/06/20 05 ACUTE URI NOS 11/05/2004 05/06/2005 ACUTE PHARYNGITIS [...] as of this encounter (statuses as of 05/07/2023) Immunizations Name Administration Dates Next Due COVID-19 [...] and older)(Boostrix) 06/27/2015 Varicella Zoster Vaccine (Adult) 08/09/2016,1103/2016 documented as of this encounter Social History Tobacco Use Types Packs/Day Years Used Date Smoking Tobacco: Never Passive Smoke Exposure: Past Smokeless Tobacco: Never Comments:Parents and then zachary eland smoked Alcohol Use Standard Drinks/Week Comments No [...] encounter Miscellaneous Notes * Telephone Encounter - Carmen Sifuentes MD - 05/07/2023 2:02 PM EDTSigned Prescriptions: Disp Refills clonazePAM 0.5 MG Oral Tablet (KlonoPIN) 90 Tab*0 Sig: TAKE ONE TABLET BY MOUTH THREE TIMES DAILYAuthorizing Provider: CARMEN SIFUENTES Morphine Sulfate ER 15 MGOral Tablet Exte*30 Tab*0 Sig: Take 1 Tablet by mouth at bedtime as needed for Pain, Severe.Authorizing Provider: CARMEN SIFUENTES * Telephone Encounter - Lashay Patel [facility] - 05/07/2023 10:11 AM EDT Pending Prescriptions: Disp Refills clonazePAM 0.5 MG Oral Tablet (KlonoPIN) 90 Tab*0 Sig: TAKE ONE TABLET BY MOUTH THREE TIMES DAILY Morphine Sulfate ER 15 MG Oral Tablet Exte*30 Tab*0 Sig: Take 1 Tablet by mouth at bedtime as needed for Pain, Severe. * Telephone Encounter - Lashay Patel [facility] - 05/07/2023 10:10 AM EDT I have reviewed the patients controlled substance dispensing history in the Prescription Drug Monitoring Program in compliance with the [facility] regulations before prescribing a controlled substance. PDMP checked on 05/07/2023. Pending Prescriptions: Disp Refills clonazePAM 0.5 MG Oral Tablet (KlonoPIN) 90 Tab*0 Sig: TAKE ONE TABLET BY MOUTH THREE TIMES DAILY Morphine Sulfate ER 15 MG Oral Tablet Ext*30 Tab*0 Sig: Take 1 Tablet by mouth at bedtime as needed for Pain, Severe. Last Visit: 02/24/2023 (in office), 03/06/2022 (telemedicine) Next Visit: 08/12/2023 Date medication was last filled: 04/08 morphine; 04/07/23 Clonazepam Date medication is due for refill: 05/07/23 morphine; 05/06/23 Clonazepam [id number] [address] [place] Is this request for a controlled substance? Yes and Urine Drug Screen Not completed Toxicology results: No results found. However, due to the size of the patient record, not all encounters were searched.Please check Results Review for a complete set of results. Please approve if appropriate. Thank you, Lashay Patel PharmD, RADHA Clinical Pharmacist [facility] ([facility]) (formerly Telepharmacy) 05/07/23 10:10 AM [phone] * Telephone Encounter - Shailesh Lala PHARM Tech - 05/06/2023 11:46 AM EDT Did you pend patient's preferred pharmacy and medication before forwarding?yes Pharmacy: [id number] [address] [place] Pending Prescriptions: Disp Refills clonazePAM 0.5 MG Oral Tablet (KlonoPIN) 90 Tab*0 Sig: TAKE ONE TABLET BY MOUTH THREE TIMES DAILY Morphine Sulfate ER 15 MG Oral Tablet Ext*30 Tab*0 Sig: Take 1 Tablet by mouth at bedtime as needed for Pain, Severe. Last Visit: 02/24/2023 (in office), 03/06/2022 (telemedicine) Next Visit: 08/12/2023 If no future appointments scheduled, and last appointment is greater than a year ago, please schedule patient for a follow-up appointment Last date the medication was ordered: 04/07/2023 Is this request for a controlled substance?Yes, What was the last refill date 04/07/2023 w/ [id number] tabs, 30 tabs and dosage 0.5 mg, Er 15 mg and Urine Drug Screen Not completed Urine Drug Screen:No results found. However, due to the size of the patient record, not all encounters were searched. Please check Results Review for a complete set of results. Patient Phone Numbers Labs: Lab Results Component Value Date/Time CREAT 0.9 02/18/2023 05:40 AM CREAT 1.13 02/26/2021 12:00 AM CREAT 1.0 07/18/2020 12:20 PM POTASSIUM 3.7 02/18/2023 05:40 AM POTASSIUM 4.0 02/26/2021 12:00 AM POTASSIUM 4.6 07/18/2020 12:20 PM TSH 4.06 02/13/2023 05:30 AM TSH 1.47 05/22/2020 01:24 PM LDLCALC 35 10/23/2022 10:46 AM LDLCALC 39 02/18/2019 02:55 PM LDLDIRECT 94 08/28/2021 01:59 PM LDLDIRECT 91 05/22/2020 01:24 PM ALT 16 10/23/2022 10:46 AM ALT 26 05/22/2020 01:24 PM HGBA1C 6.3 (H) 10/23/2022 10:46 AM HGBA1C 5.9 (H) 05/22/2020 01:24 PM documented in this encounter Plan of Treatment Upcoming Encounters Date Type Department Care Team (Late st Contact Info) Description 05/08/2023 10:00 AM EDT Laboratory Lab Mobile Phlebotomy [facility] [address] [place] [address] [facility], [facility] Mobile Home Draw [address] [place] [address] 05/12/2023 3:00 PM EST Telemedicine [facility], [address] [place] [address] Lashay Blevins PA-C [address] [place] [address] Beverly Lozoya, [facility] [address] [place] [address] 06/25/2023 12:40 PM EST Office Visit Infectious Disease [facility] Lisa Hopkins [address] [place] [address] Vidya Fabian MD [address] [place] [address] 07/14/2023 9:20 AM EST Office Visit Pulmonary Medicine, [place] [address] [place] [address] Mary Grace Johnson MD [address] [place] [address] 08/04/2023 3:45 PM EST Telemedicine Urology Kimberly Harmon [address] [place] [address] Alfredo Panda MD [address] [place] [address] 7, Telemed [facility] Urology [address] [facility] [place] [address] 08/12/2023 6:20 PM EST Office Visit [facility] [address] [place] [address] Carmen Sifuentes MD [address] [place] [address] 09/19/2023 1:00 PM EDT Cardiac Studies Cardiac Studies, [facility] [address] [facility] [place] [address] 11/06/2023 11:00 AM EDT Office Visit Cardiology, [facility] [address] [facility] [address] Sobia Brewster, JIMMY [address] [facility] [place] [address] Scheduled Procedures Name Priority Associated Diagnoses Date/Ti [...] 04/24/2023 10/23/2022, 04/07, 11/01/2021, Additional history exists GFR 08/21/2023 02/18/2023, 0802/2023, 02/07/2023, Additional history exists Albumin/Creatinine Ratio 10/24/2023 023, 07/17/2022, 10/05/2020, Additional history exists CKD PHOS USE SMARTSET 13821 10/24/202310/05, 02/18/2022, 02/17/2022, Additional history exists TSH 02/14/2024 02/13/2023, 10/05, 02/28/2022, Additional history exists CKD HGB USE SMARTSET 15775 02/19/202402/18, 02/11/2023, 02/07/2023, Additional history exists Colonoscopy 05/20/2024 05/20/2014 Colorectal [...] this encounter Medical Devices Implanted Type Area Vp Project Device Identifier Shelf Expiration Date Model / Serial / Lot Sut Bob 6 [id number] - [id number] Implanted:Qty: 1 on 02/15/2011 at [place] [facility]A: Chest DO NOT USE 07/21/2015 [id number] / / [id number] documented as of this encounter Visit Diagnoses Diagnosis Bipolar I disorder, most recent episode depressed, moderate (HCC) Bipolar I disorder, most recent episode (or current) depressed, moderate Lumbar spondylosis Lumbosacral spondylosis without myelopathy documented in this encounter Advance Directives Documents on File Type Date Recorded Patient Director Trial 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 Question Answer Comments Discussion of Advance Directives occurred with: Patient Does the patient have a Living Will? No Does the patient have Health Care Power of Time Study Analyst? No Code Status History Code Status Date [...] the patient have Health Care Power of Time Study Analyst? No Full Code 02/01/2010 4:02 PM 02/02/2010 4:09 PM This order reflects the patients wishes and were consensually agreed upon. Question Answer Comments Discussion of Advance Directives occurred with: Not Discussed Does the patient have a Living Will? No Does the patient have Health Care Power of Time Study Analyst? No Healthcare Agents on File Name Relationship Healthcare Agent [facility] Communication Carolyn Ballard Adult Child Health Care Agent Care Teams Sheriff'S Sergeant Relationship Specialty Start Date End Date Carmen Sifuentes MD [address] [place] [address] PCP - General Family Medicine 07/16/17 documented as of this encounter
--- OUTSIDE RECORDS SUMMARY | 2023-05-17 12:03 | External Medical Summary | Summary of Care ---
Author Name Unknown Organization [facility] Address [address] [place] [address] Phone [phone] Care Team Providers Care Clinical Abstractor Name Role Phone Brian Domínguez MD Primary Care Provider [phone]- [phone] Reason for Visit * Reason Onset Date Comments Test Results 05/09/2023 Encounter Details Date Type Department Care Team (Late st Contact Info) Description 05/09/2023 Telephone [facility] [place] [address] [place] [address] Lashay Blevins PA-C [address] [place] [address] Test Results Allergies Active Allergy Reactions Criticality Noted Date Comments Propoxyphene Hcl Rash Low 10/29/2010 Fentanyl Diarrhea Low 04/26/2010 anxiety Methocarbamol Medium 10/05/2020 Other reaction(s): Delirium Methocarbamol Low 04/15/2007 Zolpidem Low 10/05/2020 Other reaction(s): Confusion documented as of this encounter (statuses as of 05/09/2023) Medications Medication Sig Dispensed Refills Start Date End Date Status ARIPiprazole (ABILIFY) 2 MG Tablet Take 1 Tablet by mouth in the morning. 0 2015 Active venlafaxine XR (EFFEXOR XR) 150 MG [id number]:Dep ression Take 1 Cap by mouth daily. [...] 0 11/18/2017 Active Blood Glucose Monitoring Suppl (OrbFlex VERIO) w/Device KIT Use as directed. Use as directed. 1 Kit 0 10/31/2018 Active Spacer/Aero-Holding Chambers WISAM Use with inhaler. Wheezing/bronchitis . 1 Device 0 04/08/2019 Active gAuto [place] Lancets 33G MISC USE UP TO FOUR TIMES A DAY Dx:E11.4 100 Each 5 09/30/2019 Active Lancet Devices (Surma EnterpriseUCH DELICA LANCING DEV) MISC Use four times [...] Respimat 2.5 MCG/ACT Inhalation Aerosol Solution (Tiotropium Grant Monohydrate) Inhale by mouth 2 Puffs in the morning. 4 g 3 04/25/2022 Active Estradiol 0.1 MG/GM Vaginal Cream Administer into the vagina 1 g in the morning. 42.5 g 12 05/07/2022 Active Vitamin D (Ergocalciferol) 1.25 MG (94345 UT) Oral Capsule (Drisdol)Indication s:Vitamin D deficiency [...] TABLET IN THE EVENING 60 Tablet 5 12/07/2022 Active Dicyclomine HCl 10 MG Oral [...] 90 Tablet 1 12/19/2022 Active UltiCare Pen Declo 31G X 5 MM (Insulin Pen Needle) use TWICE DAILY 200 Each 3 12/23/2022 Active Torsemide 20 MG Oral Tablet (Demadex)Indication s:Atherosclerotic heart disease of [place] coronary artery with other forms of angina [...] daily 300 Strip 3 01/16/2023 Active Nystatin 257631 UNIT/ML Mouth/Throat Suspension SWISH AND SWALLOW 5ML [...] Cough. 50 Capsule 0 05/05/2023 Active Nystatin 534635 UNIT/GM External Powder (Nystop)Indications :Candidal intertrigo Apply [...] Pain, Severe. 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 1 g IVPB Q12H 05/06/2023 05/11/2023 Active documented as of this encounter (statuses as of 05/09/2023) Active Problems Problem Noted Date Diagnosed Date Medical home patient encounter 01/06/2023 Hypertensive heart and kidne y disease with chronic diastolic congestive heart failure and stage 3a chronic kidney disease 12/28/2021 Last Assessment & Plan: Euvolemic, BP stable EF 55% 09/25 GFR 69 02/25 -Continue Torsemide 20 mg BID, Spironolactone 25 mg BID, Tropol XL 50 mg daily Atherosclerotic heart diseas e of [place] coronary artery with other forms of angina pectoris 11/15/2021 Last Assessment & Plan: Stable. No angina -continue toprol, ASA and statin Seasonal allergies 11/15/2021 Recurrent UTI 10/07/2021 Last Assessment & Plan: Followed by urology Pt is supposed to be on methenamine--will need to clarify with dgt that she is giving this. 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 Anxiety 08/05/2017 Razmihr-Nwipy-Bgghx disease 06/27/2015 Last Assessment & Plan: Frequent [...] as of this encounter (statuses as of 05/09/2023) Resolved Problems Problem Noted Date Diagnosed Date [...] liver 05/06/2018 Atherosclerotic heart diseas e of [place] coronary artery with other forms of angina pectoris 05/06/2018 08/27/2021 Thrombocytopenia 05/06/2018 02/09/2021 Portal hypertension 05/06/2018 08/28/19 Hepatic encephalopathy 05/06/201808/27 Uncontrolled type 1 diabetes [...] stenosis 10/31/2010 08/28/2018 Acute coronary syndrome 10/30/201001/04 [employer] Research Other*[id number] 02/02/2010 04/18/2014 Overview: [place] [facility], Dr Joel Kwon PI Obesity, morbid (more than 1 00 lbs [...] Duplicate Protocol #2. 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/2014 long-term current use of ant icoagulant therapy 06/17/2006 [...] as of this encounter (statuses as of 05/09/2023) Immunizations Name Administration Dates Next Due COVID-19 [...] encounter Miscellaneous Notes * Telephone Encounter - Lashay Blevins PA-C - 05/09/2023 10:51 AM EDT Called to review recent labs with the patient's daughter and get an update on how Angelina is feeling.Left message on voicemail. Labs were unremarkable. Advised to reach out with any change in symptoms. I am scheduled to see her in a couple days. documented in this encounter Plan of Treatment Upcoming Encounters Date Type Department Care Team (Late st Contact Info) Description 05/12/2023 3:00 PM EST Telemedicine [facility] [address] [place] [address] Lashay Blevins PA-C [address] [place] [address] [facility] [address] [place] [address] 06/25/2023 12:40 PM EST Office Visit Infectious Disease [facility] [address] [facility] [place] [address] Vidya Fabian MD [address] [place] [address] 07/14/2023 9:20 AM EST [facility] [address] [place] [address] Mary Grace Johnson MD [address] [place] [address] 08/04/2023 3:45 PM EST Telemedicine Urology Kimberly Harmon [address] [place] [address] Alfredo Panda MD [address] [place] [address] 7, Telemed [facility] Urology Ex Rm [address] [facility] [place] [address] 08/12/2023 6:20 PM EST Office Visit [facility] [address] [place] [address] Brian Domínguez MD [address] [place] [address] 09/19/2023 1:00 PM EDT Cardiac Studies Cardiac Studies, [facility] [address] [place] [address] 11/06/2023 11:00 AM EDT Office Visit Cardiology, [facility] [address] [place] [address] Sobia Brewster PA-C [address] [place] [address] Scheduled Procedures Name Priority Associated Diagnoses Date/Ti me COLONOSCOPY FLEXIBLE PROXIMA L DIAGNOSTIC Recall Special screening for malignant neoplasms, colon Health Maintenance Due Date Last Done Comments DXA Scan 1949 Cologuard 1994 Fecal Occult Blood Test 1994 Sigmoidoscopy 1994 Hepatitis B (1 of 3 - Risk 3-dose series) 2009 Mammogram 07/04/2011 07/04/2010 Zoster Vaccines (2 of 3) 10/04/2016 08/09/2016, 11/0 03/2016 Depression, Most Recent Score >= 10 [...] Additional history exists CKD PHOS USE SMARTSET 01825 10/24/202310/05, 02/18/2022, 02/17/2022, Additional history exists GFR 11/06/2023 05/08/2023, 02/04, 02/11/2023, Additional history exists TSH 02/14/2024 02/13/2023, 10/05, 02/28/2022, Additional history exists CKD HGB USE SMARTSET 98890 05/08/202405/08, 05/08/2023, 02/18/2023, Additional history exists Colonoscopy [...] this encounter Medical Devices Implanted Type Area Lodging Manager Device Identifier Shelf Expiration Date Model / Serial / Lot Jenna Rojas 6 [id number] - [id number] Implanted:Qty: 1 on 02/15/2011 at [place] [facility] N/A: Chest DO NOT USE 07/21/2015 [id number] / / [id number] documented as of this encounter Advance Directives Documents on File Type Date Recorded Patient Floor Scrubber 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 Question Answer Comments Discussion of Advance Directives occurred with: Patient Does the patient have a Living Will? No Does the patient have Health Care Power of Manager Sign? No Code Status History Code Status Date [...] the patient have Health Care Power of Manager Sign? No Full Code 02/01/2010 4:02 PM 02/02/2010 4:09 PM This order reflects the patients wishes and were consensually agreed upon. Question Answer Comments Discussion of Advance Directives occurred with: Not Discussed Does the patient have a Living Will? No Does the patient have Health Care Power of Manager Sign? No Healthcare Agents on File Name Relationship Healthcare Agent [facility] Communication Carolyn Ballard Adult Child Health Care Agent Care Teams Clinical Abstractor Relationship Specialty Start Date End Date Brian Domínguez MD [address] [facility] [place] [phone] PCP - General Family Medicine 07/16/17 documented as of this encounter
--- OUTSIDE RECORDS SUMMARY | 2023-05-17 12:03 | External Medical Summary ---
Author Name Unknown Address Unknown Organization [facility] [address] [place] [address] Laboratory Report Ordering Provider Test Date Status LETTY UMANZOR 05/08/2023 09:39:00 Final Observation Date Value Abnormality Reference (Units ) Status Ammonia 05/08/2023 09:39:00 26 11-35 (umo l/L) Final Performing Location [facility] [address] [place] [address]
--- OUTSIDE RECORDS SUMMARY | 2023-05-17 12:03 | External Medical Summary ---
Author Name Unknown Address Unknown Organization [facility] [address] [place] [address] Laboratory Report Ordering Provider Test Date Status LETTY UMANZOR 05/08/2023 09:39:00 Final Observation Date Value Abnormality Reference (Units ) Status WBC, Total 05/08/2023 09:39:00 10.19 4.00-10.8 0 (K/uL) Final RBC 05/08/2023 09:39:00 5.09 3.85-5.15 (M/uL) Final Hemoglobin 05/08/2023 09:39:00 13.9 12.0-15.3 (g/dL) Final Anemia reflex testing trigge rs on a HGB < 12.0 for Females and HGB < 13.0 for Males in accordance with the WHO Anemia Guidelines HCT 05/08/2023 09:39:00 44.4 36.0-45.2 (%) Final MCV 05/08/2023 09:39:00 87.2 81.5-97.5 (fL) Final MCH 05/08/2023 09:39:00 27.3 27.0-34.0 (pg) Final MCHC 05/08/2023 09:39:00 31.3 32.0-36.0 (g/dL) Final RDW 05/08/2023 09:39:00 15.3 11.5-15.5 (%) Final Platelets 05/08/2023 09:39:00 140 140-400 (K /uL) Final MPV 05/08/2023 09:39:00 12.8 6.6-11.1 ( fL) Final Nucleated erythrocytes/100 leukocytes [Ratio] in Blood by Automated count 05/08/2023 09:39:00 0 <=0 (/100 WBCs) Fi nal Performing Location [facility] [address] [place] [address]
--- OUTSIDE RECORDS SUMMARY | 2023-05-17 12:04 | External Medical Summary | Summary of Care ---
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 [facility] Is the therapy new or a continuation? New Comments [facility] Toll-Free Referral Hotline Option 1 Will need Meropenum 1 gram every 8 hours X 14 days Reason for Visit * Reason Onset Date Comments Test Results 05/01/2023 case management 05/01/2023 Encounter Details Date Type Department Care Team (Late st Contact Info) Description 05/01/2023 Access Spec Telephone Family Practice [facility] [address] [facility] [place] [address] Nayla Blackmon, RN [address] [place] [address] Test Results; case management Allergies Active Allergy Reactions Criticality Noted Date Comments Propoxyphene Hcl Rash Low 10/29/2010 Fentanyl Diarrhea Low 04/26/2010 anxiety Methocarbamol Medium 10/05/2020 Other reaction(s): Delirium Methocarbamol Low 04/15/2007 Zolpidem Low 10/05/2020 Other reaction(s): Confusion documented as of this encounter (statuses as of 05/02/2023) Medications Medication Sig Dispensed Refills Start Date End Date Status ARIPiprazole (ABILIFY) 2 MG Tablet Take 1 Tablet by mouth in the morning. 0 2015 Active venlafaxine XR (EFFEXOR XR) 150 MG [id number]:Dep ression Take 1 Cap by mouth daily. [...] 0 11/18/2017 Active Blood Glucose Monitoring Suppl (MomoTOUCH VERIO) w/Device KIT Use as directed. Use as directed. 1 Kit 0 10/31/2018 Active Spacer/Aero-Holding Chambers WISAM Use with inhaler. Wheezing/bronchitis . 1 Device 0 04/08/2019 Active OneTouch Delica Lancets 33G MISC USE UP TO FOUR TIMES A DAY Dx:E11.4 100 Each 5 09/30/2019 Active Lancet Devices (ONETOUCH DELICA LANCING DEV) [...] Respimat 2.5 MCG/ACT Inhalation Aerosol Solution (Tiotropium [place] [facility] Monohydrate) Inhale by mouth 2 Puffs in the morning. 4 g 3 04/25/2022 Active Estradiol 0.1 MG/GM Vaginal Cream Administer into the vagina 1 g in the morning. 42.5 g 12 05/07/2022 Active Additional Information Patient not taking.Reported on 03/03/2023 Diclofenac Sodium 1 % External Gel (Voltaren) Apply topically to affected area 2 times a day. 150 g 3 06/05/2022 Active Vitamin D (Ergocalciferol) 1.25 MG (73346 UT) Oral Capsule (Drisdol)Indication s:Vitamin D deficiency [...] 90 Tablet 1 12/19/2022 Active UltiCare Pen Swayzee 31G X 5 MM (Insulin Pen Needle) use TWICE DAILY 200 Each 3 12/23/2022 Active Torsemide 20 MG Oral Tablet (Demadex)Indication s:Atherosclerotic heart disease of [place] coronary artery with other forms of angina [...] before bedtime 180 Tablet 3 01/16/2023 Active Nystatin 826657 UNIT/GM External Powder (Nystop)Indications :Candidal intertrigo Apply topically to affected area 3 times a day. Apply to right breast until rash resolved. 30 g 0 01/15/2023 Active Sucralfate 1 GM Oral Tablet (Carafate)Indicatio ns:Gastroesophageal reflux disease with esophagitis without hemorrhage TAKE 1 TABLET BY MOUTH EVERY MORNING 90 Tablet 0 01/17/2023 Active OneTouch Verio In Vitro Strip (Glucose Blood)Indications:T ype 2 diabetes mellitus with diabetic neuropathy, with long-term current use of insulin (HCC) use to test blood sugar 3 times daily 300 Strip 3 01/16/2023 Active Nystatin 999382 UNIT/ML Mouth/Throat Suspension SWISH AND SWALLOW 5ML IN THE MORNING AND 5ML AT NOON AND 5 ML IN THE EVENING AND 5ML BEFORE BEDTIME, FOR THRUSH 240 mL 1 01/28/2023 Active oxyCODONE HCl 5 MG Oral Tablet (Oxy IR)Indications:Lumb ar spondylosis Take 1 Tablet by mouth every 8 hours as needed (pain). 60 Tablet 0 01/27/2023 Active Additional Information Patient not taking.Reported on 02/24/2023 Vitamin C 500 MG Oral Tablet (Ascorbic [...] additional torsemide 30 Tablet 1 03/24/2023 Active clonazePAM 0.5 MG Oral Tablet (KlonoPIN)Indicatio ns:Bipolar I disorder, most recent episode depressed, moderate (HCC) TAKE ONE TABLET BY MOUTH THREE TIMES DAILY 90 Tablet 0 04/07/2023 Active Morphine Sulfate ER 15 MG Oral Tablet Extended Release (Ms Contin)Indications: Lumbar spondylosis Take 1 Tablet by mouth at bedtime as needed for Pain, Severe. 30 Tablet 0 04/07/2023 Active Methenamine Hippurate 1 GM Oral Tablet (Hiprex)Indications :Recurrent UTI TAKE ONE TABLET BY MOUTH IN THE MORNING AND ONE TABLET BEFORE BEDTIME 60 Tablet 0 04/08/2023 Active Benzonatate 100 MG Oral Capsule (Tessalon Perles) TAKE ONE CAPSULE BY MOUTH THREE TIMES DAILY NEEDED for cough. do not cut, crush or chew 50 Capsule 0 04/10/2023 Active Tamsulosin HCl 0.4 MG Oral Capsule [...] the morning.. 90 Tablet 1 04/21/2023 Active meropenem IV IV (AMBULATORY) Administer 1,000 mg intravenously in the morning and 1,000 mg at noon and 1,000 mg before bedtime. Do all this for 14 days. 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 1000 mg IVPB Q8H 05/02/2023 05/16/2023 Acti ve documented as of this encounter (statuses as of 05/02/2023) Active Problems Problem Noted Date Diagnosed Date Medical home patient encounter 01/06/2023 Hypertensive heart and kidne y disease with chronic diastolic congestive heart failure and stage 3a chronic kidney disease 12/28/2021 Last Assessment & Plan: Euvolemic, BP stable EF 55% 09/25 GFR 69 02/25 -Continue Torsemide 20 mg BID, Spironolactone 25 mg BID, Tropol XL 50 mg daily Atherosclerotic heart diseas e of [place] coronary artery with other forms of angina pectoris 11/15/2021 Last Assessment & Plan: Stable. No angina -continue toprol, ASA and statin Seasonal allergies 11/15/2021 Recurrent UTI 10/07/2021 Last Assessment & Plan: Followed by urology Pt is supposed to be on methenamine--will need to clarify with dgt that she is giving this. 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/2014 USP current use of ant icoagulant therapy 06/17/2006 [...] as of this encounter (statuses as of 05/02/2023) Immunizations Name Administration Dates Next Due COVID-19 [...] as of this encounter Miscellaneous Notes * Addendum Note - Nereyda Alonzo DO - 05/02/2023 11:24 AM EDTAddended by: NEREYDA ALONZO on: 05/02/2023 11:24 AM Modules accepted: Orders * Addendum Note - Nereyda Alonzo DO - 05/01/2023 4:53 PM EDTAddended by: NEREYDA ALONZO on: 05/01/2023 04:53 PM Modules accepted: Orders * Addendum Note - Nayla Blackmon RN - 05/01/2023 4:16 PM EDTAddended by: NAYLA BLACKMON on: 05/01/2023 04:16 PM Modules accepted: Orders * Telephone Encounter - Nayla Blackmon RN - 05/01/2023 4:09 PM EDT Received a tiger text from Madelaine Blount with [facility], that the order must be placed by aphysician, they cannot accept a PA-C signature. Dr. Alonzo- orders re-pended if you dont mind signing! Thank you!! * Telephone Encounter - Nayla Blackmon RN - 05/01/2023 2:58 PM EDT Vale from [facility] called in and reports patient is scheduled for tomorrow morning for PICC placement and administration of first dose. They will require a doctors signature on their consent form, the IV team nurse and the patient will then sign at time of PICC placement. They are faxing the consent. Danial Metz and Dr. Alonzo, Will send once received for signature. I can then fax back to [facility]. Thank you! * Telephone Encounter - Nayla Blackmon RN - 05/01/2023 1:21 PM EDT Faxed order and demographics to [facility] * Telephone Encounter - Nayla Blackmon RN - 05/01/2023 12:41 PM EDT Teams message From Edilia Brock PA-C will be planning for PICC insertion at [facility] and set up for IV abx. Order pended for PICC insertion, [facility] medical treatment unit asks for diagnosis code to be on the order. Can then be faxed to them at #[phone]. Pended order Lashay, (Which diagnosis should be used?) Thank you! * Telephone Encounter - Nayla Blackmon RN - 05/01/2023 9:40 AM EDT Images from the original note were not included. CM Progress note S: patients daughter, Carolyn calling in asking about UA results. These are not yet in the [employer]. Upon checking in the [facility] [employer], appears the HH took specimen there for processing. Willhave results scanned into chart. O: phone call follow up A: spoke with Carolyn P: will forward result to Lashay Brock PA-C for next recommendations. Lashay, please advise? Thank you documented in this encounter Plan of Treatment Upcoming Encounters Date Type Department Care Team (Late st Contact Info) Description 05/05/2023 10:30 AM EDT Office Visit Cardiology, [facility] [address] [address] Sobia Brewster PA-C [address] [address] 05/09/2023 1:20 PM EDT Office Visit Gastroenterology, [facility] [address] [place] [address] Wendy Frias, DO [address] [place] [address] 05/12/2023 3:00 PM EST Telemedicine [facility], [place] [address] [place] [address] Lashay Blevins PA-C [address] [place] [address] Beverly Lozoya, [address] [place] [address] 06/25/2023 12:40 PM EST Office Visit Infectious Disease [facility] [address] [facility] [address] Vidya Fabian MD [address] [place] [address] 07/14/2023 9:20 AM EST Office Visit Pulmonary Medicine, [place] [address] [place] [address] Mary Grace Johnson MD [address] [place] [address] 08/04/2023 3:45 PM EST Telemedicine Urology Kimberly Harmon [address] [place] [address] Alfredo Panda MD [address] [address] 7, Telemed 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 Expected: 05/02/2023 (Approximate), Expires: 06/01/2023 Scheduled Procedures Name Priority Associated Diagnoses Date/Ti me COLONOSCOPY FLEXIBLE PROXIMA L DIAGNOSTIC Recall Special screening for malignant neoplasms, colon Scheduled Referrals Name Type Priority Associated Diagnoses Orde r Schedule [facility] RE[facility]ERRAL OP Referral Within 3 days (urgent) 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 Ordered: 05/01/2023 Health Maintenance Due Date Last Done Comments [...] 05/22/2020, 0 02/22/2019, 11/04/2017, Additional history exists DIABETES-EYE EXAM 06/05/2021 06/05/2020, , 12/23/2012, Additional history exists COVID-19 Vaccine ( season) 2023 06/10/2021, 08/29/2020, 08/01/2020 Influenza Vaccine (FLU shot) (#1) 2023 03/14/2022, 03/14/2022, 04/10/2021, Additional history exists HbA1c 04/24/2023 10/23/2022, 04/07, 11/01/2021, Additional history exists GFR 08/21/2023 02/18/2023, 08/02/2023, 02/07/2023, Additional history exists Albumin/Creatinine Ratio 10/24/2023 023, 07/17/2022, 10/05/2020, Additional history exists CKD PHOS USE SMARTSET 73969 10/24/202310/05, 02/18/2022, 02/17/2022, Additional history exists TSH 02/14/2024 02/13/2023, 10/05, 02/28/2022, Additional history exists CKD HGB USE SMARTSET 63927 02/19/202402/18, 02/11/2023, 02/07/2023, Additional history exists Colonoscopy [...] this encounter Medical Devices Implanted Type Area Battery Container Inspector Device Identifier Shelf Expiration Date Model / Serial / Lot Jenna Rojas 6 [id number] - [id number] Implanted:Qty: 1 on 02/15/2011 at OR [facility] N/A: Chest DO NOT USE 07/21/2015 [id number] / / [id number] documented as of this encounter Visit Diagnoses Diagnosis Medical home patient encounter- Primary Other specified examination 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 Question Answer Comments Discussion of Advance Directives occurred with: Patient Does the patient have a Living Will? No Does the patient have Health Care Power of Estimator Jewelry? No Code Status History Code Status Date [...] the patient have Health Care Power of Estimator Jewelry? No Full Code 02/01/2010 4:02 PM 02/02/2010 4:09 PM This order reflects the patients wishes and were consensually agreed upon. Question Answer Comments Discussion of Advance Directives occurred with: Not Discussed Does the patient have a Living Will? No Does the patient have Health Care Power of Estimator Jewelry? No Healthcare Agents on File Name Relationship Healthcare Agent [facility] Communication Carolyn Ballard Adult Child Health Care Agent Care Teams International Controller Relationship Specialty Start Date End Date Brian Domínguez MD [address] [facility] [place] [address] PCP - General Family Medicine 07/16/17 documented as of this encounter
--- OUTSIDE RECORDS SUMMARY | 2023-05-17 12:04 | External Medical Summary | Summary of Care ---
Author Name Unknown Organization [facility] Address [address] [place] [address] Phone [phone] Care Team Providers Care Public Health Training Assistant Name Role Phone Brian Domínguez MD Primary Care Provider [phone] Reason for Visit * Reason Onset Date Comments Test Results 05/05/2023 Encounter Details Date Type Department Care Team (Late st Contact Info) Description 05/05/2023 Telephone [facility] [place] [address] [place] [address] Lashay Blevins PA-C [address] [place] [address] Test Results Allergies Active Allergy Reactions Criticality Noted Date Comments Propoxyphene Hcl Rash Low 10/29/2010 Fentanyl Diarrhea Low 04/26/2010 anxiety Methocarbamol Medium 10/05/2020 Other reaction(s): Delirium Methocarbamol Low 04/15/2007 Zolpidem Low 10/05/2020 Other reaction(s): Confusion documented as of this encounter (statuses as of 05/05/2023) Medications Medication Sig Dispensed Refills Start Date End Date Status ARIPiprazole (ABILIFY) 2 MG Tablet Take 1 Tablet by mouth in the morning. 0 6 Active venlafaxine XR (EFFEXOR XR) 150 MG [id number]:Dep ression Take 1 Cap by mouth daily. [...] 0 8 Active Blood Glucose Monitoring Suppl ([employer] VERIO) w/Device KIT Use as directed. Use as directed. 1 Kit 0 9 Active Spacer/Aero-Holding Chambers WISAM Use with inhaler. Wheezing/bronchiti s. 1 Device 0 9 Active OneTouch Delica Lancets 33G MISC USE UP TO FOUR TIMES A DAY Dx:E11.4 100 Each 5 0 Active Lancet Devices (Ascenta TherapeuticsTOUCH DELICA LANCING DEV) MISC Use four times [...] Respimat 2.5 MCG/ACT Inhalation Aerosol Solution (Tiotropium [place] Monohydrate) Inhale by mouth 2 Puffs in the morning. 4 g 3 2 Active Estradiol 0.1 MG/GM Vaginal Cream Administer into the vagina 1 g in the morning. 42.5 g 12 2 Active Vitamin D (Ergocalciferol) 1.25 MG (99578 UT) Oral Capsule (Drisdol)Indication s:Vitamin D deficiency [...] 90 Tablet 1 3 Active UltiCare Pen [place] 31G X 5 MM (Insulin Pen Needle) use TWICE DAILY 200 Each 3 3 Active Torsemide 20 MG Oral Tablet (Demadex)Indication s:Atherosclerotic heart disease of [place] coronary artery with other forms of angina [...] daily 300 Strip 3 3 Active Nystatin 208090 UNIT/ML Mouth/Throat Suspension SWISH AND SWALLOW 5ML IN THE MORNING AND 5ML AT NOON AND 5 ML IN THE EVENING AND 5ML BEFORE BEDTIME, FOR THRUSH 240 mL 1 3 Active Vitamin C 500 MG Oral [...] daily as needed for constipation 510 g 3 Active metFORMIN HCl ER 500 MG [...] additional torsemide 30 Tablet 1 3 Active clonazePAM 0.5 MG Oral Tablet (KlonoPIN)Indicatio ns:Bipolar I disorder, most recent episode depressed, moderate (HCC) TAKE ONE TABLET BY MOUTH THREE TIMES DAILY 90 Tablet 0 3 Active Morphine Sulfate ER 15 MG Oral Tablet Extended Release (Ms Contin)Indications: Lumbar spondylosis Take 1 Tablet by mouth at bedtime as needed for Pain, Severe. 30 Tablet 0 3 Active Methenamine Hippurate 1 GM Oral [...] Cough. 50 Capsule 0 3 Active Nystatin 441643 UNIT/GM External Powder (Nystop)Indications :Candidal intertrigo Apply topically to affected area 3 times a day. Apply to right breast until rash resolved. 30 g 0 3 Active cefepime IV IJ (AMBULATORY) Administer 1 g intravenously in the morning and 1 g before bedtime. Do all this for 7 days. 14 g 0 3 05/12/20 23 Active meropenem IV IV (AMBULATORY) Administer 1,000 mg intravenously in the morning and 1,000 mg at noon and 1,000 mg before bedtime. Do all this for 14 days. Do not start before May 02, 2023. 42 g 0 3 05/05/20 23 Discontinu ed(Medicat ion/Dose Changed) meropenem IV IV (AMBULATORY) Administer 1,000 mg intravenously in the morning and 1,000 mg at noon and 1,000 mg before bedtime. Do all this for 14 days. 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 1000 mg IVPB Q8H 05/02/2023 05/05/2023 Disc ontinued documented as of this encounter (statuses as of 05/05/2023) Active Problems Problem Noted Date Diagnosed Date Medical home patient encounter 01/06/2023 Hypertensive heart and kidne y disease with chronic diastolic congestive heart failure and stage 3a chronic kidney disease 12/28/2021 Last Assessment & Plan: Euvolemic, BP stable EF 55% 09/25 GFR 69 02/25 -Continue Torsemide 20 mg BID, Spironolactone 25 mg BID, Tropol XL 50 mg daily Atherosclerotic heart diseas e of [place] coronary artery with other forms of angina pectoris 11/15/2021 Last Assessment & Plan: Stable. No angina -continue toprol, ASA and statin Seasonal allergies 11/15/2021 Recurrent UTI 10/07/2021 Last Assessment & Plan: Followed by urology Pt is supposed to be on methenamine--will need to clarify with dgt that she is giving this. 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 Use waffle boots. Keep clean and dry -wound care referral Other chronic pain 12/31/2021 3 Last Assessment & Plan: Chronic pain medication managed by pcp --gabapentin 300mg BID --morphine 15mg q 12hrs --Oxy IR 1 tab every 8 hours prn Acute cystitis without hematuria 03/27/2021 07/08/2022 Mild protein-calorie malnutrition 05/07/2018 04/29/2019 Diabetes mellitus with neuropathy 05/06/2018 09/07/2018 Other cirrhosis of liver 05/06/2018 Atherosclerotic heart diseas e of [place] coronary artery with other forms of angina [...] stenosis 10/31/2010 08/28/2018 Acute coronary syndrome 10/30/201001/04 [facility] [place] Research Other*[id number] 02/02/2010 04/18/2014 Overview: [facility], Dr Joel Kwon PI Obesity, morbid [...] Duplicate Protocol #2. 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 Difficult to tell if the patient is colonized from the chronic indwelling mejia catheter. Will change antibiotics to Cefepime 1 gm every 12 hours X 7 days to cover both enterobacter and pseudomonas. Patient needs to have first dose in clinic and [facility] mobile infusion will deliver the medications. documented in this encounter Plan of Treatment Upcoming Encounters Date Type Department Care Team (Late st Contact Info) Description 05/09/2023 1:20 PM EDT Office Visit Gastroenterology, [facility] [address] [place] [address] Wendy Frias, DO [address] [place] [address] 05/12/2023 3:00 PM EST Telemedicine [facility] [place] [address] [place] [address] Lashay Blevins PA-C [address] [place] [address] Beverly Lozoya, [address] [place] [address] 06/25/2023 12:40 PM EST Office Visit Infectious Disease [facility] [address] [place] [address] Vidya Fabian MD [address] [place] [address] 07/14/2023 9:20 AM EST Office Visit Pulmonary Medicine, [place] [address] [place] [address] Mary Grace Johnson MD [address] [place] [address] 08/04/2023 3:45 PM EST Telemedicine Urology Kimberly Harmon [address] [place] [address] Alfredo Panda MD [address] [place] [address] 7, Telemed [facility] Urology Ex Rm [address] [place] [address] 08/12/2023 6:20 PM EST Office Visit [address] [address] Brian Domínguez MD [address] [place] [address] 09/19/2023 1:00 PM EDT Cardiac Studies Cardiac Studies, [facility] [address] [facility] [place] [address] 11/06/2023 11:00 AM EDT Office Visit Cardiology, [facility] [address] [facility] [place] [address] Sobia Brewster, PA-C [address] [place] [address] Scheduled Procedures Name Priority Associated Diagnoses Date/Ti [...] 11/01/2021, Additional history exists GFR 08/21/2023 02/18/2023, 08/0 02/2023, 02/07/2023, Additional history exists Albumin/Creatinine Ratio 10/24/2023 023, 07/17/2022, 10/05/2020, Additional history exists CKD PHOS USE SMARTSET 40485 10/24/202310/05, 02/18/2022, 02/17/2022, Additional history exists TSH 02/14/2024 02/13/2023, 10/05, 02/28/2022, Additional history exists CKD HGB USE SMARTSET 98041 02/19/202402/18, 02/11/2023, 02/07/2023, Additional history exists Colonoscopy [...] this encounter Medical Devices Implanted Type Area Line Up Machine Operator Device Identifier Shelf Expiration Date Model / Serial / Lot Sut Steel 6 [id number] - [id number] Implanted:Qty: 1 on 02/15/2011 at OR [facility] N/A: Chest DO NOT USE 07/21/2015 [id number] / / [id number] documented as of this encounter Visit Diagnoses Diagnosis 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 No Code Status History Code Status Date [...] the patient have Health Care Power of Aquatics Coordinator? No Full Code 02/01/2010 4:02 PM 02/02/2010 4:09 PM This order reflects the patients wishes and were consensually agreed upon. Question Answer Comments Discussion of Advance Directives occurred with: Not Discussed Does the patient have a Living Will? No Does the patient have Health Care Power of Aquatics Coordinator? No Healthcare Agents on File Name Relationship Healthcare Agent [facility] Communication Carolyn Goldmandrewnabila Adult Child Health Care Agent Care Teams Public Health Training Assistant Relationship Specialty Start Date End Date Brian Domínguez MD [address] [place] [address] PCP - General Family Medicine 07/16/17 documented as of this encounter
--- OUTSIDE RECORDS SUMMARY | 2023-05-17 12:04 | External Medical Summary | Summary of Care ---
Author Name Unknown Organization [facility] Address [address] [place] [address] Phone [phone] Care Team Providers Care Day Habilitation Supervisor Name Role Phone Brian Domínguez MD Primary Care Provider +1- [phone] Encounter Details Date Type Department Care Team (Late st Contact Info) Description 04/29/2023 Result Scan Unspecified Department Brian Domínguez MD [address] [place] [address] <No scans attached> Allergies Active Allergy Reactions Criticality Noted Date [...] Tablet by mouth in the morning. 0 07/11/19 16 Active venlafaxine XR (EFFEXOR XR) 150 MG [id number]:De pression Take 1 Cap by mouth daily. With food. 30 Cap 5 09/02/19 17 Active Additional Information Patient taking differently: 225 mgOral Daily(AM),Taking a total of 225 mg, Indications: Takes 225 mg total every morning with food (150 mg tab + 75 mg tab), Reported on 03/03/2023 Blood Glucose Monitoring Suppl (D-CARE GLUCOMETER) w/Device KITIndications:Unc ontrolled type 2 diabetes mellitus without complication, without long-term current use of insulin Use as directed. Use as directed once daily 1 Kit 0 11/19/19 18 Active Blood Glucose Monitoring Suppl (SemiSouth LaboratoriesUCH VERIO) w/Device KIT Use as directed. Use as directed. 1 Kit 0 11/01/19 19 Active Spacer/Aero-Holdin g Chambers WISAM Use with inhaler. Wheezing/bronchiti s. 1 Device 0 04/08/20 19 Active OneTouch Delica Lancets 33G MISC USE UP TO FOUR TIMES A DAY Dx:E11.4 100 Each 5 09/30/19 20 Active Lancet Devices (ONETOUCH DELICA LANCING DEV) MISC Use four times a day Dx: E11.4 1 Each 0 09/30/19 20 Active venlafaxine XR (EFFEXOR XR) 75 MG CP24 Take 1 Capsule by mouth in the morning. With 150mg tablet. 0 Active traZODone (DESYREL) 50 MG Tablet Take 1 Tablet by mouth at bedtime. 30 Tab 5 10/15/19 20 Active Aspirin EC 81 MG Oral Tablet Delayed Release Take 1 Tablet by mouth in the morning. 0 03/27/20 20 Active Fluticasone Propionate 50 MCG/ACT Nasal SuspensionIndicati ons:PND (post-nasal drip) Administer 2 Sprays into each nostril daily. 9.9 mL 1 11/12/19 21 Active NovoFine 32G X 6 MM (NOVOFINE 32G PEN NEEDLE) using twice a day with levemir 100 Each 5 12/12/19 21 Active Nitroglycerin 0.4 MG Sublingual Tablet Sublingual (Nitrostat)Indicat ions:Chronic coronary artery disease Place under the tongue 1 Tablet every 5 minutes as needed for Pain, Chest. Max dose 3 tablets in 15 minutes 25 Tablet 5 09/25/19 22 Active Lactulose 10 GM/15ML Oral Solution (Constulose)Indica tions:Chronic liver disease and cirrhosis TAKE 45 ML BY MOUTH TWICE DAILY DIRECTED 2700 mL 5 10/05/19 22 Active Additional Information Patient taking differently: TID(AM/NOON/HS), Reported on 03/03/2023 lamoTRIgine 100 MG Oral Tablet (LaMICtal) Take 1 Tablet by mouth every morning. 30 Tablet 5 03/12/20 22 Active Insulin Glargine Solostar 100 UNIT/ML Subcutaneous Solution Pen-injector (Basaglar KwikPen)Indication s:Type 2 diabetes mellitus with diabetic neuropathy, with long-term current use of insulin (HCC) Inject 30 units under the skin twice daily 45 mL 3 04/16/20 22 Active Additional Information Patient taking differently: 20 Units BID (0700,1900), (No instructions reported), Reported on 03/03/2023 Insulin Glargine Solostar 100 UNIT/ML Subcutaneous Solution Pen-injector (Basaglar KwikPen)Indication s:Type 2 diabetes mellitus with diabetic neuropathy, with long-term current use of insulin (HCC) Inject 30 units under the skin twice daily 45 mL 3 04/17/20 22 Active Additional Information Patient taking differently: 20 Units, Inject 30 units under the skin twice daily, Reported on 03/03/2023 Atorvastatin Calcium 40 MG Oral Tablet (Lipitor)Indicatio ns:Dyslipidemia, goal LDL below 70 Take by mouth 1 Tablet in the morning. 90 Tablet 3 04/25/20 22 Active Spiriva Respimat 2.5 MCG/ACT Inhalation Aerosol Solution (Tiotropium [place] Monohydrate) Inhale by mouth 2 Puffs in the morning. 4 g 3 04/25/20 22 Active Estradiol 0.1 MG/GM Vaginal Cream Administer into the vagina 1 g in the morning. 42.5 g 12 05/07/20 22 Active Additional Information Patient not taking.Reported on 03/03/2023 Vitamin D (Ergocalciferol) 1.25 MG (24748 UT) Oral Capsule (Drisdol)Indicatio ns:Vitamin D deficiency TAKE ONE CAPSULE BY MOUTH WEEKLY 12 Capsule 3 06/19/20 22 Active AIRS Disposable Nebulizer Kit Use as directed 1 Kit 0 07/17/19 23 Active Ipratropium-Albute rol 0.5-2.5 (3) MG/3ML Inhalation Solution (Duoneb) Inhale 3 mL via nebulizer in the morning and 3 mL at noon and 3 mL in the evening and 3 mL before bedtime. 360 mL 3 08/05/19 23 Active Trulicity 4.5 MG/0.5ML Subcutaneous Solution Pen-injector (Dulaglutide) INJECT 4.5 mg subcutaneously once per week 6 mL 3 08/20/19 23 Active Additional Information Patient taking differently: INJECT 4.5 mg subcutaneously once per week (Fri), Reported on 03/03/2023 lamoTRIgine 25 MG Oral Tablet (LaMICtal) 1 Tablet. Taking 2 at bedtime and 1 in morning 0 09/09/19 Active Albuterol Sulfate HFA 108 (90 Base) MCG/ACT Inhalation Aerosol SolutionIndication s:Cough Use two puffs four times a day, as directed 18 g 11/08/19 23 Active Pantoprazole Sodium 40 MG Oral Tablet Delayed Release (Protonix)Indicati ons:Gastroesophage al reflux disease without esophagitis TAKE ONE TABLET BY MOUTH IN THE MORNING AND ONE TABLET IN THE EVENING 60 Tablet 12/08/19 23 Active Dicyclomine HCl 10 MG Oral Capsule (Bentyl)Indication s:Abdominal pain TAKE ONE CAPSULE BY MOUTH FOUR TIMES DAILY NEEDED FOR ABDOMINAL PAIN 120 Capsule 12/09/19 23 Active Ondansetron HCl 8 MG Oral Tablet (Zofran)Indication s:Nausea TAKE 1 TABLET BY MOUTH EVERY 8 HOURS NEEDED FOR NAUSEA 60 Tablet 12/10/19 23 Active Levothyroxine Sodium 88 MCG Oral Tablet (Levoxyl)Indicatio ns:Hypothyroidism take one tablet by mouth daily at least 30 minutes before breakfast and other medications 90 Tablet 12/11/19 23 Active Xifaxan 550 MG Oral Tablet (rifAXIMin)Indicat ions:GONZALEZ (nonalcoholic steatohepatitis),C hronic liver disease and cirrhosis,Hepatic encephalopathy (HCC) TAKE 1 TABLET BY MOUTH TWICE DAILY 60 Tablet 12/17/19 23 Active Montelukast Sodium 10 MG Oral Tablet (Singulair)Indicat ions:Nasal sinus congestion,PND (post-nasal drip) TAKE 1 TABLET BY MOUTH ONCE DAILY 90 Tablet 1 12/20/19 23 Active UltiCare Pen Kake 31G X 5 MM (Insulin Pen Needle) use TWICE DAILY 200 Each 12/24/19 23 Active Torsemide 20 MG Oral Tablet (Demadex)Indicatio ns: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 MAY TAKE 1 ADDITIONAL TABLET NEEDED FOR SWELLING. 90 Tablet 1 12/25/19 23 Active Spironolactone 50 MG Oral Tablet (Aldactone)Indicat ions:GONZALEZ (nonalcoholic steatohepatitis),P ortal hypertension (HCC),Chronic liver disease and cirrhosis,Portal hypertensive gastropathy Take 1 tablet by mouth in the morning and before bedtime 180 Tablet 3 01/17/20 23 Active Nystatin 341286 UNIT/GM External Powder (Nystop)Indication s:Candidal intertrigo Apply topically to affected area 3 times a day. Apply to right breast until rash resolved. 30 g 0 01/16/20 23 Active Sucralfate 1 GM Oral Tablet (Carafate)Indicati ons:Gastroesophage al reflux disease with esophagitis without hemorrhage TAKE 1 TABLET BY MOUTH EVERY MORNING 90 Tablet 0 01/18/20 23 Active OneTouch Verio In Vitro Strip (Glucose Blood)Indications: Type 2 diabetes mellitus with diabetic neuropathy, with long-term current use of insulin (HCC) use to test blood sugar 3 times daily 300 Strip 3 01/17/20 23 Active Nystatin 174635 UNIT/ML Mouth/Throat Suspension SWISH AND SWALLOW 5ML IN THE MORNING AND 5ML AT NOON AND 5 ML IN THE EVENING AND 5ML BEFORE BEDTIME, FOR THRUSH 240 mL 1 01/29/20 23 Active oxyCODONE HCl 5 MG Oral Tablet (Oxy IR)Indications:Lum bar spondylosis Take 1 Tablet by mouth every 8 hours as needed (pain). 60 Tablet 0 01/28/20 23 Active Additional Information Patient not taking.Reported on 02/24/2023 Vitamin C 500 MG Oral Tablet (Ascorbic Acid)Indications:R ecurrent UTI Take 1 Tablet by mouth in the morning and 1 Tablet before bedtime. 60 Tablet 5 01/29/20 23 Active Gabapentin 300 MG Oral Capsule (Neurontin)Indicat ions:Lumbar spondylosis TAKE 1 CAPSULE BY MOUTH TWICE DAILY 60 Capsule 5 02/11/20 23 Active Polyethylene Glycol 3350 17 GM/SCOOP Oral Powder (MiraLax) Dissolve one heaping tablespoon in 8 ounces of water or juice daily as needed for constipation 510 g 5 03/20/20 23 Active metFORMIN HCl ER 500 MG Oral Tablet Extended Release 24 Hour (Glucophage XR) TAKE 1 TABLET BY MOUTH ONCE DAILY with dinner 90 Tablet 2 03/21/20 23 Active Budesonide-Formote rol Fumarate 160-4.5 MCG/ACT Inhalation Aerosol (Symbicort) Inhale 2 Puffs by mouth in the morning and 2 Puffs before bedtime. 10.2 g 12 03/24/20 23 Active Potassium Chloride Mag ER 20 MEQ Oral Tablet Extended Release take 1 tablet by mouth every morning. use when taking additional torsemide 30 Tablet 1 03/24/20 23 Active clonazePAM 0.5 MG Oral Tablet (KlonoPIN)Indicati ons:Bipolar I disorder, most recent episode depressed, moderate (HCC) TAKE ONE TABLET BY MOUTH THREE TIMES DAILY 90 Tablet 0 04/07/20 23 Active Morphine Sulfate ER 15 MG Oral Tablet Extended Release (Ms Contin)Indications :Lumbar spondylosis Take 1 Tablet by mouth at bedtime as needed for Pain, Severe. 30 Tablet 0 04/07/20 23 Active Methenamine Hippurate 1 GM Oral Tablet (Hiprex)Indication s:Recurrent UTI TAKE ONE TABLET BY MOUTH IN THE MORNING AND ONE TABLET BEFORE BEDTIME 60 Tablet 0 04/08/20 23 Active Benzonatate 100 MG Oral Capsule (Tessalon Perles) TAKE ONE CAPSULE BY MOUTH THREE TIMES DAILY NEEDED for cough. do not cut, crush or chew 50 Capsule 0 04/10/20 23 Active Tamsulosin HCl 0.4 MG Oral Capsule (Flomax) TAKE 1 CAPSULE BY MOUTH EVERY MORNING 90 Capsule 0 04/11/20 23 Active Famotidine 40 MG Oral Tablet (Pepcid)Indication s:Gastroesophageal reflux disease with esophagitis without hemorrhage TAKE 1 TABLET BY MOUTH EVERY MORNING 90 Tablet 0 04/17/20 23 Active Metoprolol Succinate ER 25 MG Oral Tablet Extended Release 24 Hour (toPROL XL)Indications:HTN , goal below 130/80 TAKE ONE TABLET BY MOUTH EVERY MORNING 90 Tablet 3 04/17/20 23 Active oxyBUTYnin Chloride ER 10 MG Oral Tablet Extended Release 24 Hour (Ditropan XL) Take 1 Tablet by mouth in the morning. In the morning.. 90 Tablet 1 04/21/20 23 Active Diclofenac Sodium 1 % External Gel (Voltaren) Apply topically to affected area 2 times a day. 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 No angina -continue toprol, ASA and statin Seasonal allergies 11/15/2021 Recurrent UTI 10/07/2021 Last Assessment & Plan: Followed by urology Pt is supposed to be on methenamine--will need to clarify with dgt that she is giving this. 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/2014 snf current use of ant icoagulant therapy 06/17/2006 [...] Smokeless Tobacco: Never Comments:Parents and then hu nikkoand smoked Alcohol Use Standard Drinks/Week Comments No [...] on file documented as of this encounter Plan of Treatment Upcoming Encounters Date Type Department Care Team (Late st Contact Info) Description 05/05/2023 10:30 AM EDT Office Visit Cardiology, [facility] [address] [place] [address] Sobia Brewster PA-C [address] [employer] [place] [address] Arrived 05/09/2023 1:20 PM EDT Office Visit Gastroenterology, [facility] [address] [place] [address] Wendy Frias DO [address] [place] [address] 05/12/2023 3:00 PM EST Telemedicine [facility] [place] [address] [place] [address] Lashay Blevins PA-C [address] [place] [address] Beverly Loz[facility] [address] [place] [address] 06/25/2023 12:40 PM EST Office Visit Infectious Disease [facility] [address] [place] [address] Vidya Fabian MD [address] [place] [address] 07/14/2023 9:20 AM EST [facility] [address] [place] [address] Mary Grace Johnson MD [address] [place] [address] 08/04/2023 3:45 PM EST Telemedicine Urology Kimberly Harmon [address] [place] [address] Alfredo Panda MD [address] [place] [address] 7, Telemed [facility] Urology Ex Rm [address] [place] [address] 08/12/2023 6:20 PM EST Office Visit [facility] [address] [place] [address] Brian Domínguez MD [address] [place] [address] Scheduled Procedures Name Priority Associated Diagnoses Date/Ti [...] Additional history exists CKD PHOS USE SMARTSET 51008 10/24/202310/05, 02/18/2022, 02/17/2022, Additional history exists TSH 02/14/2024 02/13/2023, 10/05, 02/28/2022, Additional history exists CKD HGB USE SMARTSET 19938 02/19/202402/18, 02/11/2023, 02/07/2023, Additional history exists Colonoscopy [...] this encounter Medical Devices Implanted Type Area Drying Room Supervisor Device Identifier Shelf Expiration Date Model / Serial / Lot Jenna Rojas 6 [id number] - [id number] Implanted:Qty: 1 on 02/15/2011 at OR [facility] N/A: Chest DO NOT USE 07/21/2015 [id number] / / [id number] documented as of this encounter Procedures Procedure Name Priority Date/Time Associated Diagnosis Comments OUTSIDE LAB RESULTS 04/29/2023 documented in this encounter Results * OUTSIDE LAB RESULTS (04/29/2023) 04/29/2023 Brian Domínguez MD LABORATORY documented in this encounter Advance Directives Documents on File Type Date Recorded 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 Question Answer Comments Discussion of Advance Directives occurred with: Patient Does the patient have a Living Will? No Does the patient have Health Care Power of Risk Management Intern? No Code Status History Code Status Date [...] the patient have Health Care Power of Risk Management Intern? No Full Code 02/01/2010 4:02 PM 02/02/2010 4:09 PM This order reflects the patients wishes and were consensually agreed upon. Question Answer Comments Discussion of Advance Directives occurred with: Not Discussed Does the patient have a Living Will? No Does the patient have Health Care Power of Risk Management Intern? No Healthcare Agents on File Name Relationship Healthcare Agent [facility] Communication Carolyn Ballard Adult Child Health Care Agent Care Teams Day Habilitation Supervisor Relationship Specialty Start Date End Date Brian Domínguez MD [address] [place] [address] PCP - General Family Medicine 07/16/17 documented as of this encounter
--- OUTSIDE RECORDS SUMMARY | 2023-05-17 12:04 | External Medical Summary | Summary of Care ---
Author Name Unknown Organization [facility] Address [address] [place] [address] Phone [phone] Care Team Providers Care Welfare Specialist Name Role Phone Brian Domínguez MD Primary Care Provider +1- [phone] Reason for Visit * Reason Onset Date Comments Other 05/02/2023 Encounter Details Date Type Department Care Team (Late st Contact Info) Description 05/02/2023 Telephone [facility] [address] [place] [address] Brian Domínguez MD [address] [place] [address] Other Allergies Active Allergy Reactions Criticality Noted Date [...] Active venlafaxine XR (EFFEXOR XR) 150 MG [id number]:Dep ression Take 1 Cap by mouth daily. With food. 30 Cap 5 09/02/2016 Active Additional Information Patient taking differently: 225 mgOral Daily(AM),Taking a total of 225 mg, Indications: Takes 225 mg total every morning with food (150 mg tab + 75 mg tab), Reported on 03/03/2023 Blood Glucose Monitoring Suppl ([employer]-CARE GLUCOMETER) w/Device KITIndications:Unco ntrolled type 2 diabetes mellitus without complication, without long-term current use of insulin Use as directed. Use as directed once daily 1 Kit 0 11/18/2017 Active Blood Glucose Monitoring Suppl ([employer] VERIO) w/Device KIT Use as directed. Use as directed. 1 Kit 0 10/31/2018 Active Spacer/Aero-Holding Chambers WISAM Use with inhaler. Wheezing/bronchitis . 1 Device 0 04/08/2019 Active [employer] DelTeamStreamz Lancets 33G MISC USE UP TO FOUR TIMES A DAY Dx:E11.4 100 Each 5 09/30/2019 Active Lancet Devices (SeriosityUCH DELICA LANCING DEV) MISC Use four times [...] Respimat 2.5 MCG/ACT Inhalation Aerosol Solution (Tiotropium [place] Monohydrate) Inhale by mouth 2 Puffs in [...] 06/05/2022 Active Vitamin D (Ergocalciferol) 1.25 MG (28990 UT) Oral Capsule (Drisdol)Indication s:Vitamin D deficiency [...] 90 Tablet 1 12/19/2022 Active UltiCare Pen [place] 31G X 5 MM (Insulin Pen Needle) use TWICE DAILY 200 Each 3 12/23/2022 Active Torsemide 20 MG Oral Tablet (Demadex)Indication s:Atherosclerotic heart disease of [place] coronary artery with other forms of angina [...] bedtime 180 Tablet 3 01/16/2023 Active Nystatin 040582 UNIT/GM External Powder (Nystop)Indications :Candidal intertrigo Apply [...] neuropathy, with long-term current use of insulin ([facility]) use to test blood sugar 3 times daily 300 Strip 3 01/16/2023 Active Nystatin 466834 UNIT/ML Mouth/Throat Suspension SWISH AND SWALLOW 5ML [...] before May 02, 2023. 42 g 0 05/02/2023 05/16/20 Active meropenem IV IV (AMBULATORY) Administer 1,000 mg intravenously in the morning and 1,000 mg at noon and 1,000 mg before bedtime. Do all this for 14 days. 42 g 0 05/02/2023 05/16/20 Active Hospital, Clinic, or Other Facility Administered [...] mg daily Atherosclerotic heart diseas e of [place] coronary artery with other forms of angina pectoris 11/15/2021 Last Assessment & Plan: Stable. No angina -continue toprol, ASA and statin Seasonal allergies 11/15/2021 Recurrent UTI 10/07/2021 Last Assessment & Plan: Followed by urology Pt is supposed to be on methenamine--will need to clarify with dgt that she is giving this. 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 While on the phone she received orders from [email or web address] in regards to the UA. Nothing further is needed at this time. documented in this encounter Plan of Treatment Upcoming Encounters Date Type Department Care Team (Late st Contact Info) Description 05/05/2023 10:30 AM EDT [facility] [place] [address] Sobia Brewster PA-C [address] [place] [address] 05/09/2023 1:20 PM EDT Office Visit Gastroenterology, [facility] [address] [place] [address] Altagracia Wendy Richa, DO [address] [place] [address] 05/12/2023 3:00 PM EST Telemedicine [facility] [place] [address] [place] [address] Lashay Blevins PA-C [address] [place] [address] Beverly Lozoya [address] [place] [address] 06/25/2023 12:40 PM EST Office Visit Infectious Disease [facility] [address] [place] [facility] [place] [address] Vidya Fabian MD [address] [place] [address] 07/14/2023 9:20 AM EST Office Visit Pulmonary Medicine, [place] [address] [place] [address] Mary Grace Johnson MD [address] [place] [address] 08/04/2023 3:45 PM EST Telemedicine Urology Kimberly Harmon [address] [place] [id number] Alfredo Panda MD [address] [place] [address] 7, Telemed [facility] Urology Ex [address] [place] [address] 08/12/2023 6:20 PM EST [facility] Visit [facility] [address] [facility] [address] Brian Domínguez MD [address] [facility] [place] [address] Scheduled Procedures Name Priority Associated Diagnoses Date/Ti [...] 11/01/2021, Additional history exists GFR 08/21/2023 02/18/2023, 02/2023, 02/07/2023, Additional history exists Albumin/Creatinine Ratio 10/24/2023 023, 07/17/2022, 10/05/2020, Additional history exists CKD PHOS USE SMARTSET 43701 10/24/202310/05, 02/18/2022, 02/17/2022, Additional history exists TSH 02/14/2024 02/13/2023, 10/05, 02/28/2022, Additional history exists CKD HGB USE SMARTSET 33776 02/19/202402/18, 02/11/2023, 02/07/2023, Additional history exists Colonoscopy [...] this encounter Medical Devices Implanted Type Area Collections Officer Device Identifier Shelf Expiration Date Model / Serial / Lot Sut Steel 6 [id number] - [id number] Implanted:Qty: 1 on 02/15/2011 at [place] [facility] [place] N/A: Chest DO NOT USE 07/21/2015 [id number] / / [id number] documented as of this encounter Advance Directives Documents on File Type Date Recorded 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 Question Answer Comments Discussion of Advance Directives occurred with: Patient Does the patient have a Living Will? No Does the patient have Health Care Power of Special Technical Operations Officer? No Code Status History Code Status Date [...] the patient have Health Care Power of Special Technical Operations Officer? No Full Code 02/01/2010 4:02 PM 02/02/2010 4:09 PM This order reflects the patients wishes and were consensually agreed upon. Question Answer Comments Discussion of Advance Directives occurred with: Not Discussed Does the patient have a Living Will? No Does the patient have Health Care Power of Special Technical Operations Officer? No Healthcare Agents on File Name Relationship Healthcare Agent [facility] Communication Carolyn Elio Adult Child Health Care Agent Care Teams Welfare Specialist Relationship Specialty Start Date End Date Brian Domínguez MD [address] [place] [address] PCP - General Family Medicine 07/16/17 documented as of this encounter
--- OUTSIDE RECORDS SUMMARY | 2023-05-17 12:04 | External Medical Summary | Summary of Care ---
Author Name Unknown Organization [facility] Address [address] [place] [address] Phone [phone] Care Team Providers Care Social Insurance Specialist Name Role Phone Brian Domínguez MD Primary Care Provider [phone]- [phone] Reason for Visit * Reason Onset Date Comments Test Results 05/05/2023 Encounter Details Date Type Department Care Team (Late st Contact Info) Description 05/05/2023 Telephone [facility] [place] [address] [place] [address] Lashay Blevins PA-C [address] [place] [address] Test Results Allergies Active Allergy [...] Active venlafaxine XR (EFFEXOR XR) 150 MG OK91Vvgpcbjaldn:Dep ression Take 1 Cap by mouth daily. [...] 0 11/18/2017 Active Blood Glucose Monitoring Suppl (GOOM VERIO) w/Device KIT Use as directed. Use as directed. 1 Kit 0 10/31/2018 Active Spacer/Aero-Holding Chambers WISAM Use with inhaler. Wheezing/bronchitis . 1 Device 0 04/08/2019 Active [employer] Lancets 33G MISC USE UP TO FOUR TIMES A DAY Dx:E11.4 100 Each 5 09/30/2019 Active Lancet Devices (JuicyCanvasUCH DELICA LANCING DEV) MISC Use four times [...] Respimat 2.5 MCG/ACT Inhalation Aerosol Solution (Tiotropium [place] Monohydrate) Inhale by mouth 2 Puffs in the morning. 4 g 3 04/25/2022 Active Estradiol 0.1 MG/GM Vaginal Cream Administer into the vagina 1 g in the morning. 42.5 g 12 05/07/2022 Active Vitamin D (Ergocalciferol) 1.25 MG (74977 UT) Oral Capsule (Drisdol)Indication s:Vitamin D deficiency [...] 90 Tablet 1 12/19/2022 Active UltiCare Pen [place] 31G X 5 MM (Insulin Pen Needle) use TWICE DAILY 200 Each 3 12/23/2022 Active Torsemide 20 MG Oral Tablet (Demadex)Indication s:Atherosclerotic heart disease of [place] coronary artery with other forms of angina [...] bedtime 180 Tablet 3 01/16/2023 Active Nystatin 761314 UNIT/GM External Powder (Nystop)Indications :Candidal intertrigo Apply [...] daily 300 Strip 3 01/16/2023 Active Nystatin 433307 UNIT/ML Mouth/Throat Suspension SWISH AND SWALLOW 5ML [...] 10.2 g 12 03/24/2023 Active Potassium Chloride Amg ER 20 MEQ Oral Tablet Extended Release [...] mg daily Atherosclerotic heart diseas e of [place] coronary artery with other forms of angina pectoris 11/15/2021 Last Assessment & Plan: Stable. No angina -continue toprol, ASA and statin Seasonal allergies 11/15/2021 Recurrent UTI 10/07/2021 Last Assessment & Plan: Followed by urology Pt is supposed to be on methenamine--will need to clarify with dgt that she is giving this. 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/2014 rn long term care current use of ant icoagulant therapy 06/17/2006 [...] Encounter - Lashay Blevins PA-C - 05/05/2023 12:58 PM EDT Final culture results noted in EPIC. 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 The patient failed to show for her ID appointment a couple weeks ago. Sent ID an ask-a-doc message for recommendations. Patient is currently receiving IV meropenum at home. documented in this encounter Plan of Treatment Upcoming Encounters Date Type Department Care Team (Late st Contact Info) Description 05/09/2023 1:20 PM EDT Office Visit [facility], [facility] [address] [facility] [place] [address] Wendy Frias, [address] [place] [address] 05/12/2023 3:00 PM EST Telemedicine [facility], [place] [address] [place] [address] Lashay Blevins PA-C [address] [place] [address] Beverly Lozoya, [address] [place] [address] 06/25/2023 12:40 PM EST Office Visit Infectious Disease [facility] [address] [place] [address] Vidya Fabian MD [address] [place] [address] 07/14/2023 9:20 AM EST Office Visit Pulmonary Medicine, [place] [address] [place] [address] Mary Grace Johnson MD [address] [place] [address] 08/04/2023 3:45 PM EST Telemedicine Urology Kimberly Harmon [address] [place] [address] Alfredo Panda MD [address] [place] [address] 7, Telemed [facility] Urology [address] [place] [address] 08/12/2023 6:20 PM EST Office Visit [facility] [address] [place] [address] Brian Domínguez MD [address] [place] [address] 09/19/2023 1:00 PM EDT Cardiac Studies Cardiac Studies, [facility] [address] [place] [address] 11/06/2023 11:00 AM EDT Office Visit Cardiology, [facility] [address] [place] [address] Sobia Brewster, JIMMY [address] [place] [address] Scheduled Procedures Name Priority Associated Diagnoses Date/Ti [...] Additional history exists CKD PHOS USE SMARTSET 17582 10/24/202310/05, 02/18/2022, 02/17/2022, Additional history exists TSH 02/14/2024 02/13/2023, 10/05, 02/28/2022, Additional history exists CKD HGB USE SMARTSET 82726 02/19/202402/18, 02/11/2023, 02/07/2023, Additional history exists Colonoscopy [...] this encounter Medical Devices Implanted Type Area Investigator Cash Shortage Device Identifier Shelf Expiration Date Model / Serial / Lot Sut Steel 6 [id number] - [id number] Implanted:Qty: 1 on 02/15/2011 at OR [facility] N/A: Chest DO NOT USE 07/21/2015 [id number] / / [id number] documented as of this encounter Advance Directives Documents on File Type Date Recorded Patient Big Data Lead Expl cheyanneion 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 Question Answer Comments Discussion of Advance Directives occurred with: Patient Does the patient have a Living Will? No Does the patient have Health Care Power of Dimension Specification Inspector? No Code Status History Code Status Date [...] the patient have Health Care Power of Dimension Specification Inspector? No Full Code 02/01/2010 4:02 PM 02/02/2010 4:09 PM This order reflects the patients wishes and were consensually agreed upon. Question Answer Comments Discussion of Advance Directives occurred with: Not Discussed Does the patient have a Living Will? No Does the patient have Health Care Power of Dimension Specification Inspector? No Healthcare Agents on File Name Relationship Healthcare Agent [facility] Communication Carolyn Ballard Adult Child Health Care Agent Care Teams Social Insurance Specialist Relationship Specialty Start Date End Date Brian Domínguez MD [address] [place] [facility] [place] [address] PCP - General Family Medicine 07/16/17 documented as of this encounter
--- OUTSIDE RECORDS SUMMARY | 2023-05-17 12:04 | External Medical Summary | Summary of Care ---
Author Name Unknown Organization [facility] Address [address] [place] [address] Phone [phone] Care Team Providers Care Constitutional Law Professor Name Role Phone Carmen Sifuentes MD Primary Care Provider [phone]- [phone] Reason for Visit * Reason Onset Date Comments Medication Refill 05/05/2023 Encounter Details Date Type Department Care Team (Late st Contact Info) Description 05/05/2023 Refill [facility] [address] [place] [address] Carmen Sifuentes MD [address] [place] [address] Cough*; Candidal intertrigo Allergies Active Allergy Reactions Criticality Noted Date [...] Active venlafaxine XR (EFFEXOR XR) 150 MG NI57Icgppjtypvy:Dep ression Take 1 Cap by mouth daily. [...] 0 8 Active Blood Glucose Monitoring Suppl (Brainiac TVIO) w/Device KIT Use as directed. Use as directed. 1 Kit 0 9 Active Spacer/Aero-Holding Chambers WISAM Use with inhaler. Wheezing/bronchiti s. 1 Device 0 9 Active [employer]ica Lancets 33G MISC USE UP TO FOUR TIMES A DAY Dx:E11.4 100 Each 5 0 Active Lancet Devices (CinemaNowUCH DELICA LANCING DEV) MISC Use four times [...] Respimat 2.5 MCG/ACT Inhalation Aerosol Solution (Tiotropium [place] Monohydrate) Inhale by mouth 2 Puffs in the morning. 4 g 3 2 Active Estradiol 0.1 MG/GM Vaginal Cream Administer into the vagina 1 g in the morning. 42.5 g 12 2 Active Vitamin D (Ergocalciferol) 1.25 MG (36417 UT) Oral Capsule (Drisdol)Indication s:Vitamin D deficiency [...] 90 Tablet 1 3 Active UltiCare Pen [place] 31G X 5 MM (Insulin Pen Needle) use TWICE DAILY 200 Each 3 3 Active Torsemide 20 MG Oral Tablet (Demadex)Indication s:Atherosclerotic heart disease of [place] coronary artery with other forms of angina [...] neuropathy, with long-term current use of insulin ([facility]) use to test blood sugar 3 times daily 300 Strip 3 3 Active Nystatin 904704 UNIT/ML Mouth/Throat Suspension SWISH AND SWALLOW 5ML [...] the morning.. 90 Tablet 1 3 Active meropenem IV IV (AMBULATORY) Administer 1,000 mg intravenously in the morning and 1,000 mg at noon and 1,000 mg before bedtime. Do all this for 14 days. Do not start before May 02, 2023. 42 g 0 3 05/16/20 23 Active meropenem IV IV (AMBULATORY) Administer 1,000 mg intravenously in the morning and 1,000 mg at noon and 1,000 mg before bedtime. Do all this for 14 days. 42 g 0 3 05/16/20 23 Active Benzonatate 100 MG Oral Capsule (Tessalon Per[place])Indications: Cough Take 1 Capsule by mouth 3 times a day as needed for Cough. 50 Capsule 0 3 Active Nystatin 014818 UNIT/GM External Powder (Nystop)Indications :Candidal intertrigo Apply topically to affected area 3 times a day. Apply to right breast until rash resolved. 30 g 0 3 Active Nystatin 597144 UNIT/GM External Powder (Nystop)Indications :Candidal intertrigo Apply topically to affected area 3 times a day. Apply to right breast until rash resolved. 30 g 0 3 05/05/20 Discontinu ed(Refill) Benzonatate 100 MG Oral Capsule (Tessalon [place]) TAKE ONE CAPSULE BY MOUTH THREE TIMES DAILY NEEDED for cough. do not cut, crush or chew 50 Capsule 0 3 05/05/20 23 Discontinu ed(Refill) Hospital, Clinic, or Other [...] mg daily Atherosclerotic heart diseas e of [place] coronary artery with other forms of angina pectoris 11/15/2021 Last Assessment & Plan: Stable. No angina -continue toprol, ASA and statin Seasonal allergies 11/15/2021 Recurrent UTI 10/07/2021 Last Assessment & Plan: Followed by urology Pt is supposed to be on methenamine--will need to clarify with dgt that she is giving this. 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 Apply to right breast until rash resolved.Authorizing Provider: CARMEN SIFUENTES * Telephone Encounter - Radha Do CMA - 05/05/2023 10:28 AM EDT Did you pend patient's preferred pharmacy and medication before forwarding?yes [facility] No prescriptions requested or ordered in this encounter Last Visit: 02/24/2023 (in office), 03/06/2022 (telemedicine) Next Visit: 08/12/2023 If no future appointments scheduled, and last appointment is greater than a year ago, please schedule patient for a follow-up appointment Last date the medication was ordered: Is this request for a controlled substance?No Urine Drug Screen:No results found. However, due [...] 05/09/2023 1:20 PM EDT Office Visit Gastroenterology, [facility] [address] [place] [address] [place] Wendy Richa, [address] [place] [address] 05/12/2023 3:00 PM EST Telemedicine [facility], [place] [address] [place] [address] Lashay Blevins PA-C [address] [place] [address] Beverly Lozoya, [address] [place] [address] 06/25/2023 12:40 PM EST Office Visit Infectious Disease [facility] [address] [facility] [address] Vidya Fabian MD [address] [place] [address] 07/14/2023 9:20 AM EST Office Visit Pulmonary Medicine, [place] [address] [place] [address] Mary Grace Johnson MD [address] [place] [address] 08/04/2023 3:45 PM EST Telemedicine Urology Kimberly Harmon [address] [place] [address] Alfredo Panda MD [address] [place] [address] 7, Telemed [facility] Urology [address] [place] [address] 08/12/2023 6:20 PM EST Office Visit [facility] [address] [place] [facility] [place] [address] Carmen Sifuentes MD [address] [place] [place] [address] 09/19/2023 1:00 PM EDT Cardiac Studies Cardiac Studies, [facility] [address] [facility] [address] 11/06/2023 11:00 AM EDT Office Visit Cardiology, [facility] 132 [facility] [place] [address] Sobia Brewster PA-C [address] [place] [address] Scheduled Procedures Name Priority Associated Diagnoses Date/Ti me COLONOSCOPY FLEXIBLE PROXIMA L DIAGNOSTIC Recall Special screening for malignant neoplasms, colon Health Maintenance Due Date Last Done Comments DXA Scan 1949 Cologuard 1994 Fecal Occult Blood Test 1994 Sigmoidoscopy 1994 Hepatitis B (1 of 3 - Risk 3-dose series) 2009 Mammogram 07/04/2011 07/04/2010 Zoster Vaccines (2 of 3) 10/04/2016 08/09/2016, 1103/2016 Depression, Most Recent Score >= 10 (will [...] Additional history exists CKD PHOS USE SMARTSET 55539 10/24/202310/05, 02/18/2022, 02/17/2022, Additional history exists TSH 02/14/2024 02/13/2023, 10/05, 02/28/2022, Additional history exists CKD HGB USE SMARTSET 06278 02/19/202402/18, 02/11/2023, 02/07/2023, Additional history exists Colonoscopy [...] this encounter Medical Devices Implanted Type Area Mass Communications Professor Device Identifier Shelf Expiration Date Model / Serial / Lot Sut Steel 6 M654g - [id number] Implanted:Qty: 1 on 02/15/2011 at OR [facility] N/A: Chest DO NOT USE 07/21/2015 [id number] / / [id number] documented as of this encounter Visit Diagnoses Diagnosis Cough- Primary Candidal intertrigo Candidiasis of skin and nails documented in this encounter Advance Directives Documents on File Type Date Recorded Patient English As A Second Language Teacher Expl anation POL 05/06/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 Question Answer Comments Discussion of Advance Directives occurred with: Patient Does the patient have a Living Will? No Does the patient have Health Care Power of Oil Dispenser? No Code Status History Code Status Date [...] the patient have Health Care Power of Oil Dispenser? No Full Code 02/01/2010 4:02 PM 02/02/2010 4:09 PM This order reflects the patients wishes and were consensually agreed upon. Question Answer Comments Discussion of Advance Directives occurred with: Not Discussed Does the patient have a Living Will? No Does the patient have Health Care Power of Oil Dispenser? No Healthcare Agents on File Name Relationship Healthcare Agent [facility] Communication Carolyn Elio Adult Child Health Care Agent Care Teams Constitutional Law Professor Relationship Specialty Start Date End Date Carmen Sifuentes MD [address] [place] [address] PCP - General Family Medicine 07/16/17 documented as of this encounter
--- OUTSIDE RECORDS SUMMARY | 2023-05-17 12:04 | External Medical Summary | Summary of Care ---
Author Name Unknown Organization [facility] Address [address] [place] [address] Phone [phone] Care Team Providers Care Agricultural Education Instructor Name Role Phone Brian Domínguez MD Primary Care Provider [phone]- [phone] Reason for Referral * Ancillary Services (Within 3 days (urgent)) - Authorized Specialty Diagnoses / Procedures Referred By Contac t Referred To Contact Stave Grader Diagnoses Altered mental status, unspecified altered mental status type Lashay Blevins PA-C [address] [place] [address] Referral ID Status Reason Start Date Expiration Date Visits Requested Visits Authorized [id number] Authorized Ancillary Services Required 3 [phone] Question Answer Referral Priority Within 3 days (urgent) Where should this appointment be scheduled? Manpreet Comments Is Patient homebound? Yes All sections of this form must be filled out completely. Forms with missing or illegible information will be returned for completion. This form should not be modified in any way. Forms that have been modified will be returned. This form may not be submitted by a home health agency. It must be complete and submitted by the ordering provider. One full business day lead time is required and service will be scheduled based on the next service day for the [facility] Home Phlebotomy does not service every geographical location on a daily basis. Contact [facility] Client Services at to find out service days for a specific location. Medical Laboratory [address] [place] [id number] Brady Ambrosio M.D. Director and Survey Instrument Operator Patient Name: Angelina Ballard : 1950 Sex: female Address [address] [facility] [address] Provider: None? Brian Domínguez MD? Diagnosis: Tests Requested CBC, CMP, ammonia Reason for Visit * Reason Onset Date Comments Test Results 05/05/2023 Encounter Details Date Type Department Care Team (Late st Contact Info) Description 05/05/2023 Telephone [facility], [place] [address] [place] [address] Lashay Blevins PA-C [address] [place] [address] Test Results Allergies Active Allergy [...] Active venlafaxine XR (EFFEXOR XR) 150 MG [id number]:Dep ression Take 1 Cap by mouth daily. [...] 0 11/18/2017 Active Blood Glucose Monitoring Suppl ([facility] [employer] VERIO) w/Device KIT Use as directed. Use [...] Glargine Solostar 100 UNIT/ML Subcutaneous Solution Pen-injector (Carmita Cross)Indications :Type 2 diabetes mellitus with diabetic neuropathy, [...] Respimat 2.5 MCG/ACT Inhalation Aerosol Solution (Tiotropium [place] Monohydrate) Inhale by mouth 2 Puffs in the morning. 4 g 3 04/25/2022 Active Estradiol 0.1 MG/GM Vaginal Cream Administer into the vagina 1 g in the morning. 42.5 g 12 05/07/2022 Active Vitamin D (Ergocalciferol) 1.25 MG (79502 UT) Oral Capsule (Drisdol)Indication s:Vitamin D deficiency [...] TABLET BY MOUTH ONCE DAILY 90 Tablet 12/19/2022 Active UltiCare Pen [place] 31G X 5 MM (Insulin Pen Needle) use TWICE DAILY 200 Each 3 12/23/2022 Active Torsemide 20 MG Oral Tablet (Demadex)Indication s:Atherosclerotic heart disease of [place] coronary artery with other forms of angina [...] daily 300 Strip 3 01/16/2023 Active Nystatin 780307 UNIT/ML Mouth/Throat Suspension SWISH AND SWALLOW 5ML [...] Cough. 50 Capsule 0 05/05/2023 Active Nystatin 668575 UNIT/GM External Powder (Nystop)Indications :Candidal intertrigo Apply [...] one week. 2 Tablet 0 05/05/2023 Active Hospital, Clinic, or Other Facility Administered [...] mg daily Atherosclerotic heart diseas e of [place] coronary artery with other forms of angina pectoris 11/15/2021 Last Assessment & Plan: Stable. No angina -continue toprol, ASA and statin Seasonal allergies 11/15/2021 Recurrent UTI 10/07/2021 Last Assessment & Plan: Followed by urology Pt is supposed to be on methenamine--will need to clarify with dgt that she is giving this. 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/2014 intermediate current use of ant icoagulant therapy 06/17/2006 [...] Encounter - Lashay Blevins PA-C - 05/05/2023 6:23 PM EDT Reviewed new plan of care with the patient's daughter Carolyn. She states she has not noted improvement since starting the meropenum. Her mother is still having episodes of confusion. BG has been good. No fever/chills or vomiting. She is concerned Angelina has a yeast infection as she is itching and red in the vaginal area. Will order labs and check ammonia levels. Advised to reach out or take patient to ED if S/S worsen. documented in this encounter Plan of Treatment Upcoming Encounters Date Type Department Care Team (Late st Contact Info) Description 05/09/2023 1:20 PM EDT Office Visit Gastroenterology, [facility] [address] [place] [address] Wendy Frias, [address] [place] [address] 05/12/2023 3:00 PM EST [facility], [place] [address] [place] [address] Lashay Blevins PA-C [address] [place] [address] Beverly Lozoya, Community Health Location Director [address] [place] [address] [place] [address] 06/25/2023 12:40 PM EST Office Visit Infectious Disease [facility] [address] [place] [address] Vidya Fabian MD [address] [place] [address] 07/14/2023 9:20 AM EST Office Visit Pulmonary Medicine, [place] [address] [place] [address] Mary Grace Johnson MD [address] [place] [address] 08/04/2023 3:45 PM EST Telemedicine Urology Kimberly Harmon [address] [place] [address] Alfredo Panda MD [address] [place] [address] 7, Telemed [facility] 132 [facility] [place] [address] 08/12/2023 6:20 PM EST Office Visit [facility] [address] [place] [address] Brian Domínguez MD [address] [place] [address] 09/19/2023 1:00 PM EDT Cardiac Studies Cardiac Studies, [facility] 132 [facility] [place] [address] 11/06/2023 11:00 AM EDT Office Visit Cardiology, [facility] [address] [facility] [place] [address] Sobia Brewster, JIMMY 132 [facility] [place] [address] Scheduled Orders Name Type Priority Associated Diagnoses Orde r Schedule CBC WITH WBC DIFFERENTIAL AND ANEMIA REFLEX WORKUP Lab Routine Altered mental status, unspecified altered mental status type Expected: 05/05/2023 (Approximate), Expires: 05/05/2024 COMPREHENSIVE METABOLIC PANEL Lab Routine Altered mental status, unspecified altered mental status type Expected: 05/05/2023 (Approximate), Expires: 05/04/2024 AMMONIA Lab Routine Altered mental status, unspecified altered mental status type Expected: 05/05/2023 (Approximate), Expires: 05/04/2024 Scheduled Procedures Name Priority Associated Diagnoses Date/Ti me COLONOSCOPY FLEXIBLE PROXIMA L DIAGNOSTIC Recall Special screening for malignant neoplasms, colon Scheduled Referrals Name Type Priority Associated Diagnoses Orde r Schedule HOME PHLEBOTOMY REFERRAL OP Referral Within 3 days (urgent) Altered mental status, unspecified altered mental status type Ordered: 05/05/2023 Health Maintenance Due Date Last Done Comments [...] Additional history exists CKD PHOS USE SMARTSET 45299 10/24/202310/053, 02/18/2022, 02/17/2022, Additional history exists TSH 02/14/2024 02/13/2023, 10/05, 02/28/2022, Additional history exists CKD HGB USE SMARTSET 93657 02/19/202402/18, 02/11/2023, 02/07/2023, Additional history exists Colonoscopy [...] this encounter Medical Devices Implanted Type Area Formal Wear Rental Clerk Device Identifier Shelf Expiration Date Model / Serial / Lot Sut Steel 6 [id number] - [id number] Implanted:Qty: 1 on 02/15/2011 at [place] [facility] [place] N/A: Chest DO NOT USE 07/21/2015 [id number] / / [id number] documented as of this encounter Visit Diagnoses Diagnosis Altered mental status, unspecified altered mental status type- Primary documented in this encounter Advance Directives Documents on File Type Date Recorded 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 Question Answer Comments Discussion of Advance Directives occurred with: Patient Does the patient have a Living Will? No Does the patient have Health Care Power of Public Health Analyst? No Code Status History Code Status [...] the patient have Health Care Power of Public Health Analyst? No Full Code 02/01/2010 4:02 PM 02/02/2010 4:09 PM This order reflects the patients wishes and were consensually agreed upon. Question Answer Comments Discussion of Advance Directives occurred with: Not Discussed Does the patient have a Living Will? No Does the patient have Health Care Power of Public Health Analyst? No Healthcare Agents on File Name Relationship Healthcare Agent [facility] Communication Carolyn Elio Adult Child Health Care Agent Care Teams Agricultural Education Instructor Relationship Specialty Start Date End Date Brian Domínguez MD [address] [place] [address] PCP - General Family Medicine 07/16/17 documented as of this encounter
--- OUTSIDE RECORDS SUMMARY | 2023-05-17 12:05 | External Medical Summary | Summary of Care ---
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 Lashay Blevins PA-C [address] [place] [address] Referral ID Status Reason Start Date Expiration Date Visits Requested Visits Authorized [id number] Authorized Specialty Services Required 3 [phone] [...] Team (Late st Contact Info) Description 05/01/2023 Expressive Art Therapist Telephone Family Practice [facility] 132 [facility] [place] [address] Nayla Bellamy, RN [address] [place] [address] Test Results; case management Allergies Active Allergy Reactions Criticality Noted Date Comments Propoxyphene Hcl Rash Low 10/29/2010 Fentanyl Diarrhea Low 04/26/2010 anxiety Methocarbamol Medium 10/05/2020 Other reaction(s): Delirium Methocarbamol Low 04/15/2007 Zolpidem Low 10/05/2020 Other reaction(s): Confusion documented as of this encounter (statuses as of 05/01/2023) Medications Medication Sig Dispensed Refills Start Date End Date Status ARIPiprazole (ABILIFY) 2 MG Tablet Take 1 Tablet by mouth in the morning. 0 2015 Active venlafaxine XR (EFFEXOR XR) 150 MG IC94Xhoxxlilzsb:Dep ression Take 1 Cap by mouth daily. [...] 0 11/18/2017 Active Blood Glucose Monitoring Suppl ([employer]ox[employer] ClothingTOUCH VERIO) w/Device KIT Use as directed. Use [...] Respimat 2.5 MCG/ACT Inhalation Aerosol Solution (Tiotropium [place] Monohydrate) Inhale by mouth 2 Puffs in [...] 06/05/2022 Active Vitamin D (Ergocalciferol) 1.25 MG (34085 UT) Oral Capsule (Drisdol)Indication s:Vitamin D deficiency [...] 90 Tablet 1 12/19/2022 Active UltiCare Pen [place] 31G X 5 MM (Insulin Pen Needle) use TWICE DAILY 200 Each 3 12/23/2022 Active Torsemide 20 MG Oral Tablet (Demadex)Indication s:Atherosclerotic heart disease of [place] coronary artery with other forms of angina [...] bedtime 180 Tablet 3 01/16/2023 Active Nystatin 254923 UNIT/GM External Powder (Nystop)Indications :Candidal intertrigo Apply [...] daily 300 Strip 3 01/16/2023 Active Nystatin 556635 UNIT/ML Mouth/Throat Suspension SWISH AND SWALLOW 5ML [...] the morning.. 90 Tablet 1 04/21/2023 Active documented as of this encounter (statuses as of 05/01/2023) Active Problems Problem Noted Date Diagnosed Date Medical home patient encounter 01/06/2023 Hypertensive heart and kidne y disease with chronic diastolic congestive heart failure and stage 3a chronic kidney disease 12/28/2021 Last Assessment & Plan: Euvolemic, BP stable EF 55% 09/25 GFR 69 02/25 -Continue Torsemide 20 mg BID, Spironolactone 25 mg BID, Tropol XL 50 mg daily Atherosclerotic heart diseas e of [place] coronary artery with other forms of angina pectoris 11/15/2021 Last Assessment & Plan: Stable. No angina -continue toprol, ASA and statin Seasonal allergies 11/15/2021 Recurrent UTI 10/07/2021 Last Assessment & Plan: Followed by urology Pt is supposed to be on methenamine--will need to clarify with dgt that she is giving this. 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/2014 watermaster current use of ant icoagulant therapy 06/17/2006 [...] as of this encounter (statuses as of 05/01/2023) Immunizations Name Administration Dates Next Due COVID-19 [...] Telephone Encounter - Nayla Bellamy RN - 05/01/2023 2:58 PM EDT Vale from [facility] called in and reports patient is [...] Thank you! * Telephone Encounter - Nayla Bellamy RN - 05/01/2023 1:21 PM EDT Faxed order and demographics to [facility] * Telephone Encounter - Nayla Bellamy RN - 05/01/2023 12:41 PM EDT Teams message From Edilia Brock PA-C will be planning for PICC insertion at [facility] and set up for IV abx. Order pended for PICC insertion, [facility] medical treatment unit asks for diagnosis code to be on the order. Can then be faxed to them at #[phone]. Pended order Lashay, (Which diagnosis should be used?) Thank you! * Telephone Encounter - Nayla Bellamy RN - 05/01/2023 9:40 AM EDT Images from the original note were not included. CM Progress note S: patients daughter, Carolyn calling in asking about UA results. These are not yet in the [employer]. Upon checking in the [facility], appears the HH took specimen there for [...] 05/05/2023 10:30 AM EDT Office Visit Cardiology, [facility] [address] [place] [address] Sobia Brewster PA-C [address] [place] [address] 05/09/2023 1:20 PM EDT Office Visit [facility]enterology, [facility] [place] [address] Wendy Frias, DO 132 [facility] [place] [address] 05/12/2023 3:00 PM EST Telemedicine [facility], [place] [address] [place] [address] Lashay Blevins PA-C [address] [place] [address] Beverly Lozoya, [address] [place] [address] 06/25/2023 12:40 PM EST Office Visit Infectious Disease [facility] [address] [facility] [address] Vidya Fabian MD [address] [place] [address] 07/14/2023 9:20 AM EST Office Visit Pulmonary Medicine, [place] [address] [place] [address] Mary Grace Johnson MD [address] [place] [address] 08/04/2023 3:45 PM EST Telemedicine Urology Kimberly Harmon [address] [place] [address] Alfredo Panda MD [address] [place] [address] 7, Telemed [facility] Ex [address] [place] [address] 08/12/2023 6:20 PM EST Office Visit [address] [phone] Brian Domínguez MD [address] [place], [place] [address] Scheduled Orders Name Type Priority Associated Diagnoses [...] Additional history exists CKD PHOS USE SMARTSET 73536 10/24/202310/05, 02/18/2022, 02/17/2022, Additional history exists TSH 02/14/2024 02/13/2023, 10/05, 02/28/2022, Additional history exists CKD HGB USE SMARTSET 62740 02/19/202402/18, 02/11/2023, 02/07/2023, Additional history exists Colonoscopy [...] this encounter Medical Devices Implanted Type Area Data Integration Architect Device Identifier Shelf Expiration Date Model / Serial / Lot Jenna Rojas 6 M654g - [id number] Implanted:Qty: 1 on 02/15/2011 at [place] [facility] [place]A: Chest DO NOT USE 07/21/2015 [id number] / / [id number] documented as of this encounter Visit Diagnoses Diagnosis Medical home patient encounter- Primary Other specified examination 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 Question Answer Comments Discussion of Advance Directives occurred with: Patient Does the patient have a Living Will? No Does the patient have Health Care Power of Ict Managers? No Code Status History Code Status Date [...] the patient have Health Care Power of Ict Managers? No Full Code 02/01/2010 4:02 PM 02/02/2010 4:09 PM This order reflects the patients wishes and were consensually agreed upon. Question Answer Comments Discussion of Advance Directives occurred with: Not Discussed Does the patient have a Living Will? No Does the patient have Health Care Power of Ict Managers? No Healthcare Agents on File Name Relationship Healthcare Agent [facility] Communication Carolyn Elio Adult Child Health Care Agent Care Teams Expressive Art Therapist Relationship Specialty Start Date End Date Brian Domínguez MD [address] [place] [address] PCP - General Family Medicine 07/16/17 documented as of this encounter
--- OUTSIDE RECORDS SUMMARY | 2023-05-17 12:05 | External Medical Summary | Summary of Care ---
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 [...] 0 11/18/2017 Active Blood Glucose Monitoring Suppl (SeeMore InteractiveTOUCH VERIO) w/Device KIT Use as directed. Use [...] Respimat 2.5 MCG/ACT Inhalation Aerosol Solution (Tiotropium [place] Monohydrate) Inhale by mouth 2 Puffs in [...] 06/05/2022 Active Vitamin D (Ergocalciferol) 1.25 MG (99822 UT) Oral Capsule (Drisdol)Indication s:Vitamin D deficiency [...] 90 Tablet 1 12/19/2022 Active UltiCare Pen [place] 31G X 5 MM (Insulin Pen Needle) use TWICE DAILY 200 Each 3 12/23/2022 Active Torsemide 20 MG Oral Tablet (Demadex)Indication s:Atherosclerotic heart disease of [place] coronary artery with other forms of angina [...] bedtime 180 Tablet 3 01/16/2023 Active Nystatin 015565 UNIT/GM External Powder (Nystop)Indications :Candidal intertrigo Apply [...] daily 300 Strip 3 01/16/2023 Active Nystatin 456375 UNIT/ML Mouth/Throat Suspension SWISH AND SWALLOW 5ML [...] mg daily Atherosclerotic heart diseas e of [place] coronary artery with other forms of angina pectoris 11/15/2021 Last Assessment & Plan: Stable. No angina -continue toprol, ASA and statin Seasonal allergies 11/15/2021 Recurrent UTI 10/07/2021 Last Assessment & Plan: Followed by urology Pt is supposed to be on methenamine--will need to clarify with dgt that she is giving this. 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 Dr. Alonzo- orders re-pended if you dont mind signing! Thank you!! * Telephone Encounter - Nayla Blackmon RN - 05/01/2023 2:58 PM EDT Vale from [facility] called in and reports patient [...] signature. I can then fax back to [facility]. Thank you! * Telephone Encounter - Nayla Blackmon RN - 05/01/2023 1:21 PM EDT Faxed order and demographics to [facility] * Telephone Encounter - Nayla Blackmon RN - 05/01/2023 12:41 PM EDT Teams message From Edilia Brock PA-C will be planning for PICC insertion at [facility] and set up for IV abx. Order pended for PICC insertion, [facility] medical treatment unit asks for diagnosis code to be on the order. Can then be faxed to them at #[phone]. Pended order Lashay, (Which diagnosis should be used?) Thank you! * Telephone Encounter - Nayla Blackmon RN - 05/01/2023 9:40 AM EDT Images from the original note were not included. CM Progress note S: patients daughter, Carolyn calling in asking about UA results. These are not yet in the [employer]. Upon checking in the [facility] Shyp, appears the HH took specimen there for processing. Willhave results scanned into chart. O: phone call follow up A: spoke with Carolyn Rubio: will forward result to Lashay Brock PA-C for next recommendations. Lashay, please advise? Thank you documented in this encounter Plan of Treatment Upcoming Encounters Date Type Department Care Team (Late st Contact Info) Description 05/05/2023 10:30 AM EDT Office Visit Cardiology, [facility] [address] [facility] [place] [address] Sobia Brewster PA-C [address] [place] [address] 05/09/2023 1:20 PM EDT Office Visit Gastroenterology, [facility] [address] [place] [address] Wendy Frias DO [address] [place] [address] 05/12/2023 3:00 PM EST Telemedicine [facility] [place] [address] [place] [address] Lashay Blevins PA-C [address] [place] [address] Beverly Lozoya [address] [place] [address] 06/25/2023 12:40 PM EST Office Visit Infectious Disease [facility] 200 [facility] [place] [address] Vidya Fabian MD [address] [facility] [place] [address] 07/14/2023 9:20 AM EST Office Visit Pulmonary Medicine, [place] [address] [place] [facility] [place] [address] Mary Grace Johnson MD [address] [facility] [place] [address] 08/04/2023 3:45 PM EST Telemedicine Urology [place] [address] [address] Alfredo Panda MD [address] [place] [address] 7, Telemed [facility] Urology Ex Rm [address] [place] [address] 08/12/2023 6:20 PM EST Office Visit [facility] [address] [place] [address] Brian Domínguez MD [address] [place] [address] Scheduled Orders Name Type Priority Associated Diagnoses [...] Additional history exists CKD PHOS USE SMARTSET 65516 10/24/202310/05, 02/18/2022, 02/17/2022, Additional history exists TSH 02/14/2024 02/13/2023, 10/05, 02/28/2022, Additional history exists CKD HGB USE SMARTSET 81188 02/19/202402/18, 02/11/2023, 02/07/2023, Additional history exists Colonoscopy [...] this encounter Medical Devices Implanted Type Area Bankruptcy Processor Device Identifier Shelf Expiration Date Model / Serial / Lot Sut Steel 6 M654g - [id number] Implanted:Qty: 1 on 02/15/2011 at OR [facility] [place] N/A: Chest DO NOT USE 07/21/2015 [id number] / / [id number] documented as of this encounter Visit Diagnoses Diagnosis Medical home patient encounter- Primary Other specified examination 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 No Code Status History Code Status Date [...] the patient have Health Care Power of Larr[place]? No Full Code 02/01/2010 4:02 PM 02/02/2010 4:09 PM This order reflects the patients wishes and were consensually agreed upon. Question Answer Comments Discussion of Advance Directives occurred with: Not Discussed Does the patient have a Living Will? No Does the patient have Health Care Power of Larriman? No Healthcare Agents on File Name Relationship Healthcare Agent [facility] Communication Carolyn Ballard Adult Child Health Care Agent Care Teams Drug Abuse Social Worker Relationship Specialty Start Date End Date Brian Domínguez [facility] [address] [facility] [address] PCP - General Family Medicine 07/16/17 documented as of this encounter
--- OUTSIDE RECORDS SUMMARY | 2023-05-17 12:05 | External Medical Summary | Summary of Care ---
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 [...] 0 11/18/2017 Active Blood Glucose Monitoring Suppl (enModusTOUCH VERIO) w/Device KIT Use as directed. Use [...] Respimat 2.5 MCG/ACT Inhalation Aerosol Solution (Tiotropium [place] Monohydrate) Inhale by mouth 2 Puffs in [...] 06/05/2022 Active Vitamin D (Ergocalciferol) 1.25 MG (48667 UT) Oral Capsule (Drisdol)Indication s:Vitamin D deficiency [...] 90 Tablet 1 12/19/2022 Active UltiCare Pen [place] 31G X 5 MM (Insulin Pen Needle) use TWICE DAILY 200 Each 3 12/23/2022 Active Torsemide 20 MG Oral Tablet (Demadex)Indication s:Atherosclerotic heart disease of [place] coronary artery with other forms of angina [...] bedtime 180 Tablet 3 01/16/2023 Active Nystatin 179687 UNIT/GM External Powder (Nystop)Indications :Candidal intertrigo Apply [...] daily 300 Strip 3 01/16/2023 Active Nystatin 790374 UNIT/ML Mouth/Throat Suspension SWISH AND SWALLOW 5ML [...] mg daily Atherosclerotic heart diseas e of [place] coronary artery with other forms of angina pectoris 11/15/2021 Last Assessment & Plan: Stable. No angina -continue toprol, ASA and statin Seasonal allergies 11/15/2021 Recurrent UTI 10/07/2021 Last Assessment & Plan: Followed by urology Pt is supposed to be on methenamine--will need to clarify with dgt that she is giving this. 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 Order pended for PICC insertion, [facility] medical treatment unit asks for diagnosis code to be on the order. Can then be faxed to them at #[phone]. Pended order Lashay, (Which diagnosis should be used?) Thank you! * Telephone Encounter - Nayla Bellamy RN - 05/01/2023 9:40 AM EDT Images from the original note were not included. CM Progress note S: patients daughter, Carolyn calling in asking about UA results. These are not yet in the [employer]ersystem. Upon checking in the [facility] [employer], appears the took specimen there for processing. Willhave results scanned into chart. O: phone call follow up A: spoke with Carolyn P: will forward result to Lashay Brock PA-C for next recommendations. Lashay, please advise? Thank you documented in this encounter Plan of Treatment Upcoming Encounters Date Type Department Care Team (Late st Contact Info) Description 05/05/2023 10:30 AM EDT Office Visit Cardiology, [facility] [address] [place] [address] Sobia Brewster PA-C [address] [place] [address] 05/09/2023 1:20 PM EDT Office Visit Gastroenterology, [facility] [place] [address] Wnedy Frias, [address] [place] [address] 05/12/2023 3:00 PM EST Telemedicine [facility], [place] [address] [address] Lashay Blevins PA-C [address] [address] Beverly Lozoya, [address] [place] [address] 06/25/2023 12:40 PM EST Office Visit Infectious Disease [facility] 200 [place] [address] Vidya Fabian MD [address] [place] [address] 07/14/2023 9:20 AM EST Office Visit Pulmonary Medicine, [place] [address] [place] [address] Mary Grace Johnson MD [address] [place], [place] [address] 08/04/2023 3:45 PM EST Telemedicine Urology [place] [address] [place] [address] Alfredo Panda MD [address] [place] [address] 7, Telemed [facility] Urology Ex Rm 132 [place] [address] 08/12/2023 6:20 PM EST Office Visit [address] [phone] Brian Domínguez MD [address] [place] [address] Scheduled Orders Name Type Priority Associated Diagnoses [...] Additional history exists CKD PHOS USE SMARTSET 45388 10/24/202310/05, 02/18/2022, 02/17/2022, Additional history exists TSH 02/14/2024 02/13/2023, 10/05, 02/28/2022, Additional history exists CKD HGB USE SMARTSET 88066 02/19/202402/18, 02/11/2023, 02/07/2023, Additional history exists Colonoscopy [...] this encounter Medical Devices Implanted Type Area Form Coverer Device Identifier Shelf Expiration Date Model / Serial / Lot Sut Steel 6 M654g - [id number] Implanted:Qty: 1 on 02/15/2011 at [place] [facility] [place] N/A: Chest DO NOT USE 07/21/2015 M654G / / [id number] documented as of this encounter Visit Diagnoses Diagnosis Medical home patient encounter- Primary Other specified examination 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 No Code Status History Code Status [...] the patient have Health Care Power of Wood Inspector? No Full Code 02/01/2010 4:02 PM 02/02/2010 4:09 PM This order reflects the patients wishes and were consensually agreed upon. Question Answer Comments Discussion of Advance Directives occurred with: Not Discussed Does the patient have a Living Will? No Does the patient have Health Care Power of Wood Inspector? No Healthcare Agents on File Name Relationship Healthcare Agent [facility] Communication Carolyn Elio Adult Child Health Care Agent Care Teams Associate Trainer Relationship Specialty Start Date End Date Brian Domínguez MD [address] [place], [place] [id number] PCP - General Family Medicine 07/16/17 documented as of this encounter
--- OUTSIDE RECORDS SUMMARY | 2023-05-17 12:05 | External Medical Summary | Summary of Care ---
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 [place] [address] [facility] [place] [address] Nayla Blackmon, RN [address] [place] [address] Test Results; case management Allergies Active Allergy [...] Active venlafaxine XR (EFFEXOR XR) 150 MG [id number]:Dep ression Take 1 Cap by mouth daily. [...] 0 11/18/2017 Active Blood Glucose Monitoring Suppl (Spectrum BridgeTOUCH VERIO) w/Device KIT Use as directed. Use [...] Respimat 2.5 MCG/ACT Inhalation Aerosol Solution (Tiotropium [place] Monohydrate) Inhale by mouth 2 Puffs in [...] 06/05/2022 Active Vitamin D (Ergocalciferol) 1.25 MG (25604 UT) Oral Capsule (Drisdol)Indication s:Vitamin D deficiency [...] 90 Tablet 1 12/19/2022 Active UltiCare Pen [place] 31G X 5 MM (Insulin Pen Needle) use TWICE DAILY 200 Each 3 12/23/2022 Active Torsemide 20 MG Oral Tablet (Demadex)Indication s:Atherosclerotic heart disease of [place] coronary artery with other forms of angina [...] bedtime 180 Tablet 3 01/16/2023 Active Nystatin 940028 UNIT/GM External Powder (Nystop)Indications :Candidal intertrigo Apply [...] daily 300 Strip 3 01/16/2023 Active Nystatin 527156 UNIT/ML Mouth/Throat Suspension SWISH AND SWALLOW 5ML [...] the morning.. 90 Tablet 1 04/21/2023 Active Hospital, Clinic, or Other Facility Administered [...] mg daily Atherosclerotic heart diseas e of [place] coronary artery with other forms of angina pectoris 11/15/2021 Last Assessment & Plan: Stable. No angina -continue toprol, ASA and statin Seasonal allergies 11/15/2021 Recurrent UTI 10/07/2021 Last Assessment & Plan: Followed by urology Pt is supposed to be on methenamine--will need to clarify with dgt that she is giving this. 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/2014 halfway current use of ant icoagulant therapy 06/17/2006 [...] placed by aphysician, they cannot accept a JIMMY signature. Dr. Alonzo- orders re-pended if you dont mind signing! Thank you!! * Telephone Encounter - Nayla Blackmon RN - 05/01/2023 2:58 PM EDT Vale from [facility] called in and reports patient is [...] signature. I can then fax back to [facility]. Thank you! * Telephone Encounter - Nayla Blackmon RN - 05/01/2023 1:21 PM EDT Faxed order and demographics to [facility] * Telephone Encounter - Nayla Blackmon RN - 05/01/2023 12:41 PM EDT Teams message From Edilia Brock PA-C will be planning for PICC insertion at [facility] and set up for IV abx. Order pended for PICC insertion, [facility] medical treatment unit asks for diagnosis code to be on the order. Can then be faxed to them at #[phone]. Pended order Lashay, (Which diagnosis should be used?) Thank you! * Telephone Encounter - Nayla Blackmon RN - 05/01/2023 9:40 AM EDT Images from the original note were not included. CM Progress note S: patients daughter, Carolyn calling in asking about UA results. These are not yet in the [employer]. Upon checking in the [facility]ama, appears the HH took specimen there for [...] 05/05/2023 10:30 AM EDT Office Visit Cardiology, [facility] [place] [address] [place] [address] Sobia Brewster PA-C [address] [place] [address] 05/09/2023 1:20 PM EDT Office Visit Gastroenterology, [facility] [address] [place] [address] Wendy Frias DO [address] [place] [address] 05/12/2023 3:00 PM EST Telemedicine [facility] [place] [address] [address] [address] Lashay Blevins PA-C [address] [place] [address] Beverly Lozoya, [address] [place] [address] 06/25/2023 12:40 PM EST Office Visit Infectious Disease [facility] 200 [place] [address] Vidya Fabian MD [address] [place] [address] 07/14/2023 9:20 AM EST Office Visit Pulmonary Medicine, [place] [address] [place] [address] Mary Grace Johnson MD [address] [place], [place] [address] 08/04/2023 3:45 PM EST Telemedicine Urology [place] [address] [place] [address] Alfredo Panda MD [address] [place] [address] 7, Telemed [facility] Urology Ex Rm [address] [place] [address] 08/12/2023 6:20 PM EST Office Visit [address] [phone] Brian Domínguez MD [address] [place] [address] Scheduled Orders Name Type Priority Associated Diagnoses [...] Additional history exists CKD PHOS USE SMARTSET 71988 10/24/202310/05, 02/18/2022, 02/17/2022, Additional history exists TSH 02/14/2024 02/13/2023, 10/05, 02/28/2022, Additional history exists CKD HGB USE SMARTSET 84293 02/19/202402/18, 02/11/2023, 02/07/2023, Additional history exists Colonoscopy [...] encounter Medical Devices Implanted Type Area Data Consultant Device Identifier Shelf Expiration Date Model / Serial / Lot Sut Steel 6 M654g - [id number] Implanted:Qty: 1 on 02/15/2011 at OR [facility] [place] N/A: Chest DO NOT USE 07/21/2015 [id number] / / [id number] documented as of this encounter Visit Diagnoses Diagnosis Medical home patient encounter- Primary Other specified examination 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 Question Answer Comments Discussion of Advance Directives occurred with: Patient Does the patient have a Living Will? No Does the patient have Health Care Power of Poultry Hatchery Manager? No Code Status History Code Status Date [...] the patient have Health Care Power of Poultry Hatchery Manager? No Full Code 02/01/2010 4:02 PM 02/02/2010 4:09 PM This order reflects the patients wishes and were consensually agreed upon. Question Answer Comments Discussion of Advance Directives occurred with: Not Discussed Does the patient have a Living Will? No Does the patient have Health Care Power of Poultry Hatchery Manager? No Healthcare Agents on File Name Relationship Healthcare Agent [facility] Communication Carolyn Elio Adult Child Health Care Agent Care Teams Ob Scrub Tech Relationship Specialty Start Date End Date Brian Domínguez MD [address] [place], [place] [phone] PCP - General Family Medicine 07/16/17 documented as of this encounter
--- OUTSIDE RECORDS SUMMARY | 2023-05-17 12:05 | External Medical Summary | Summary of Care ---
Author Name Unknown Organization [facility] Address [address] [place] [address] Phone [phone] Care Team Providers Care Reinforced Concrete Inspector Name Role Phone Brian Domínguez MD Primary Care Provider +1- [phone] Reason for Visit * Reason Onset Date Comments Med Request 05/01/2023 Encounter Details Date Type Department Care Team (Late st Contact Info) Description 05/01/2023 Telephone Family Practice [facility] 132 [facility] [place] [address] Lashay Blevins PA-C [address] [place] [address] Med Request Allergies Active Allergy Reactions Criticality Noted Date [...] Active venlafaxine XR (EFFEXOR XR) 150 MG [id number]:Dep ression Take 1 Cap by mouth daily. [...] 0 11/18/2017 Active Blood Glucose Monitoring Suppl (Yerdle VERIO) w/Device KIT Use as directed. Use as directed. 1 Kit 0 10/31/2018 Active Spacer/Aero-Holding Chambers WISAM Use with inhaler. Wheezing/bronchitis . 1 Device 0 04/08/2019 Active TechLive DelRollstream Lancets 33G MISC USE UP TO FOUR TIMES A DAY Dx:E11.4 100 Each 5 09/30/2019 Active Lancet Devices (Yerdle DELICA LANCING DEV) MISC Use four times [...] Respimat 2.5 MCG/ACT Inhalation Aerosol Solution (Tiotropium [place] Monohydrate) Inhale by mouth 2 Puffs in [...] 06/05/2022 Active Vitamin D (Ergocalciferol) 1.25 MG (36538 UT) Oral Capsule (Drisdol)Indication s:Vitamin D deficiency [...] 90 Tablet 1 12/19/2022 Active UltiCare Pen [place] 31G X 5 MM (Insulin Pen Needle) use TWICE DAILY 200 Each 3 12/23/2022 Active Torsemide 20 MG Oral Tablet (Demadex)Indication s:Atherosclerotic heart disease of [place] coronary artery with other forms of angina [...] bedtime 180 Tablet 3 01/16/2023 Active Nystatin 692187 UNIT/GM External Powder (Nystop)Indications :Candidal intertrigo Apply [...] neuropathy, with long-term current use of insulin ([facility]) use to test blood sugar 3 times daily 300 Strip 3 01/16/2023 Active Nystatin 396986 UNIT/ML Mouth/Throat Suspension SWISH AND SWALLOW 5ML [...] 2023. 42 g 0 05/02/2023 05/16/20 Active documented as of this encounter (statuses [...] mg daily Atherosclerotic heart diseas e of [place] coronary artery with other forms of angina pectoris 11/15/2021 Last Assessment & Plan: Stable. No angina -continue toprol, ASA and statin Seasonal allergies 11/15/2021 Recurrent UTI 10/07/2021 Last Assessment & Plan: Followed by urology Pt is supposed to be on methenamine--will need to clarify with dgt that she is giving this. 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 Anxiety 08/05/2017 Jhqjcnz-Vlthc-Fugzn disease 06/27/2015 Last Assessment & Plan: Frequent [...] Resolved Date Open wound of left heel 03/12/2022/08/2022 Last Assessment & Plan: Pressure ulcer -off [...] liver 05/06/2018 Atherosclerotic heart diseas e of [place] coronary artery with other forms of angina [...] 07/19/2014 Urinary frequency 05/26/2012 07/19/2014 Urinary incontinence 05/26/201207/08/ 023 Overview: ICD-10 update of inactive term [...] stenosis 10/31/2010 08/28/2018 Acute coronary syndrome 10/30/201001/04 [place] Research Other*[id number] 02/02/2010 04/18/2014 Overview: [place] Registry, Dr Joel CASAS Obesity, morbid (more [...] Duplicate Protocol #2. 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/2014 jail current use of ant icoagulant therapy 06/17/2006 [...] 05/05/2023 10:30 AM EDT Office Visit Cardiology, [facility] 132 [facility] [place] [address] Sobia Brewster PA-C 132 [facility] [place] [address] 05/09/2023 1:20 PM EDT Office Visit Gastroenterology, [facility] 132 [facility] [place] [address] Wendy Frias DO 132 [facility] [place] [address] 05/12/2023 3:00 PM EST Telemedicine [facility] [place] [address] [place] [address] Lashay Blevins PA-C [address] [place] [address] Beverly Lozoya, Community Health Upholstery Department Supervisor [address] [place] [address] [place] [address] 06/25/2023 12:40 PM EST Office Visit Infectious Disease [facility] [address] [place] [address] Vidya Fabian MD [address] [place] [address] 07/14/2023 9:20 AM EST [facility] [address] [place] [address] Mary Grace Johnson MD [address] [place], [place] [id number] 08/04/2023 3:45 PM EST Telemedicine Urology Kimberly Harmon [address] [place] [address] Alfredo Panda MD [address] [place] [address] 7, Telemed [facility] Urology Ex Rm [address] [place] [address] 08/12/2023 6:20 PM EST Office Visit [place] [address] [place] [address] Brian Domínguez MD [address] [place] [address] Scheduled Procedures Name Priority Associated Diagnoses Date/Ti [...] Additional history exists CKD PHOS USE SMARTSET 25277 10/24/202310/05, 02/18/2022, 02/17/2022, Additional history exists TSH 02/14/2024 02/13/2023, 10/05, 02/28/2022, Additional history exists CKD HGB USE SMARTSET 03072 02/19/202402/18, 02/11/2023, 02/07/2023, Additional history exists Colonoscopy [...] this encounter Medical Devices Implanted Type Area X Ray Equipment Tester Device Identifier Shelf Expiration Date Model / Serial / Lot Jenna Rojas 6 [id number] - [id number] Implanted:Qty: 1 on 02/15/2011 at OR [facility] [place] N/A: Chest DO NOT USE 07/21/2015 [id number] / / [id number] documented as of this encounter Advance Directives Documents on File Type Date Recorded Patient Adult Neuropsychologist 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 Question Answer Comments Discussion of Advance Directives occurred with: Patient Does the patient have a Living Will? No Does the patient have Health Care Power of Community Case Manager? No Code Status History Code Status [...] the patient have Health Care Power of Community Case Manager? No Full Code 02/01/2010 4:02 PM 02/02/2010 4:09 PM This order reflects the patients wishes and were consensually agreed upon. Question Answer Comments Discussion of Advance Directives occurred with: Not Discussed Does the patient have a Living Will? No Does the patient have Health Care Power of Community Case Manager? No Healthcare Agents on File Name Relationship Healthcare Agent [facility] Communication Carolyn Goldmandrewnabila Adult Child Health Care Agent Care Teams Reinforced Concrete Inspector Relationship Specialty Start Date End Date Brian Domínguez MD [address] [place] [address] PCP - General Family Medicine 07/16/17 documented as of this encounter
--- OUTSIDE RECORDS SUMMARY | 2023-05-17 12:05 | External Medical Summary | Summary of Care ---
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 [...] 0 11/18/2017 Active Blood Glucose Monitoring Suppl (rumr: turn off the lights VERIO) w/Device KIT Use as directed. Use as directed. 1 Kit 0 10/31/2018 Active Spacer/Aero-Holding Chambers WISAM Use with inhaler. Wheezing/bronchitis . 1 Device 0 04/08/2019 Active Askablogruch DelProduce [place] Lancets 33G MISC USE UP TO FOUR TIMES A DAY Dx:E11.4 100 Each 5 09/30/2019 Active Lancet Devices (TrovTOUCH DELICA LANCING DEV) MISC Use four times [...] Respimat 2.5 MCG/ACT Inhalation Aerosol Solution (Tiotropium [place] Monohydrate) Inhale by mouth 2 Puffs in [...] 06/05/2022 Active Vitamin D (Ergocalciferol) 1.25 MG (77448 UT) Oral Capsule (Drisdol)Indication s:Vitamin D deficiency [...] 90 Tablet 1 12/19/2022 Active UltiCare Pen [place] 31G X 5 MM (Insulin Pen Needle) use TWICE DAILY 200 Each 3 12/23/2022 Active Torsemide 20 MG Oral Tablet (Demadex)Indication s:Atherosclerotic heart disease of [place] coronary artery with other forms of angina pectoris (HCC),Hypertensive heart disease with chronic diastolic congestive heart failure ([facility]) TAKE 1 TABLET BY MOUTH EVERY MORNING. MAY TAKE 1 ADDITIONAL TABLET NEEDED FOR SWELLING. 90 Tablet 1 12/24/2022 Active Spironolactone 50 MG Oral Tablet (Aldactone)Indicati ons:GONZALEZ (nonalcoholic steatohepatitis),Po rtal hypertension (HCC),Chronic liver disease and cirrhosis,Portal hypertensive gastropathy Take 1 tablet by mouth in the morning and before bedtime 180 Tablet 3 01/16/2023 Active Nystatin 468291 UNIT/GM External Powder (Nystop)Indications :Candidal intertrigo Apply [...] neuropathy, with long-term current use of insulin ([facility]) use to test blood sugar 3 times daily 300 Strip 3 01/16/2023 Active Nystatin 235654 UNIT/ML Mouth/Throat Suspension SWISH AND SWALLOW 5ML [...] 2023. 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 No angina -continue toprol, ASA and statin Seasonal allergies 11/15/2021 Recurrent UTI 10/07/2021 Last Assessment & Plan: Followed by urology Pt is supposed to be on methenamine--will need to clarify with dgt that she is giving this. 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/2014 intermediate manager current use of ant icoagulant therapy 06/17/2006 [...] on file documented as of this encounter Progress Notes * Lashay Johnston PA-C - 05/01/2023 1:32 PM EDT Received urine culture results, + enterobacter cloacae with sensitivity only to IV antibiotics. Reviewed urine culture and sensitivity with pharmacist at [facility] mobile infusion. They recommended Meropenum vs Cefepime. Recommendations were 1 gram every 8 hours X 14 days. That order has been placed along with Mobile infusion. CM faxed order for PICC line placement to be completed at [facility].I will place an order now for her to have one dose of antibiotic when she has the PICC placed. I spoke with the patient's daughter in regards to the plan of care. documented in this encounter Plan of Treatment Upcoming Encounters Date Type Department Care Team (Late st Contact Info) Description 05/05/2023 10:30 AM EDT Office Visit Cardiology, [facility] [address] [place] [address] Sobia Brewster PA-C [address] [place] [address] 05/09/2023 1:20 PM EDT Office Visit Gastroenterology, [facility] [address] [place] [address] Wendy Frias, DO [address] [place] [address] 05/12/2023 3:00 PM EST Telemedicine [facility], [place] [address] [place] [address] Lashay Blevins PA-C [address] [place] [address] Beverly Lozoya, [address] [place] [address] 06/25/2023 12:40 PM EST Office Visit Infectious Disease [facility] [address] [place] [address] Vidya Fabian MD [address] [place] [address] 07/14/2023 9:20 AM EST Office Visit Pulmonary Medicine, [place] [address] [place] [address] Mary Grace Johnson MD [address] [place] [address] 08/04/2023 3:45 PM EST Telemedicine Urology Kimberly Harmon [address] [place] [address] Alfredo Panda MD [address] [place] [address] 7, Telemed [facility] Urology Ex [address] [place] [address] 08/12/2023 6:20 PM EST Office Visit [facility] [address] [place] [facility] [place] [address] Brian Domínguez MD [address] [place], [place] [id number] Scheduled Procedures Name Priority Associated Diagnoses Date/Ti [...] Additional history exists CKD PHOS USE SMARTSET 66488 10/24/202310/05, 02/18/2022, 02/17/2022, Additional history exists TSH 02/14/2024 02/13/2023, 10/05, 02/28/2022, Additional history exists CKD HGB USE SMARTSET 22789 02/19/202402/18, 02/11/2023, 02/07/2023, Additional history exists Colonoscopy [...] this encounter Medical Devices Implanted Type Area Concrete Technician Device Identifier Shelf Expiration Date Model / Serial / Lot Sut Steel 6 M654g - [id number] Implanted:Qty: 1 on 02/15/2011 at [place] [facility] [place]A: Chest DO NOT USE 07/21/2015 [id number] / / [id number] documented as of this encounter Visit Diagnoses Diagnosis 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 Question Answer Comments Discussion of Advance Directives occurred with: Patient Does the patient have a Living Will? No Does the patient have Health Care Power of Assistant Teacher Primary? No Code Status History Code Status Date [...] the patient have Health Care Power of Assistant Teacher Primary? No Full Code 02/01/2010 4:02 PM 02/02/2010 4:09 PM This order reflects the patients wishes and were consensually agreed upon. Question Answer Comments Discussion of Advance Directives occurred with: Not Discussed Does the patient have a Living Will? No Does the patient have Health Care Power of Assistant Teacher Primary? No Healthcare Agents on File Name Relationship Healthcare Agent [facility] Communication Carolyn Goldmandrewnabila Adult Child Health Care Agent Care Teams Caramel Cutter Helper Relationship Specialty Start Date End Date Brian Domínguez MD [address] [place] [address] PCP - General Family Medicine 07/16/17 documented as of this encounter
--- OUTSIDE RECORDS SUMMARY | 2023-05-17 12:05 | External Medical Summary | Summary of Care ---
Author Name Unknown Organization [facility] Address [address] [place] [address] Phone [phone] Care Team Providers Care Rubbing Bed Operator Name Role Phone Brian Domínguez MD Primary Care Provider +1- [phone] Reason for Visit * Reason Onset Date Comments Information 05/02/2023 Encounter Details Date Type Department Care Team (Late st Contact Info) Description 05/02/2023 Telephone [facility] [place] [address] [place] [phone] Services, Scheduling [address] [place] [address] Information (//) Allergies Active Allergy Reactions Criticality Noted Date [...] Active venlafaxine XR (EFFEXOR XR) 150 MG [id number]:Dep ression Take 1 Cap by mouth daily. [...] 0 11/18/2017 Active Blood Glucose Monitoring Suppl (LockitronUCH VERIO) w/Device KIT Use as directed. Use [...] Respimat 2.5 MCG/ACT Inhalation Aerosol Solution (Tiotropium [place] Monohydrate) Inhale by mouth 2 Puffs in [...] 06/05/2022 Active Vitamin D (Ergocalciferol) 1.25 MG (63800 UT) Oral Capsule (Drisdol)Indication s:Vitamin D deficiency [...] 90 Tablet 1 12/19/2022 Active UltiCare Pen [place] 31G X 5 MM (Insulin Pen Needle) use TWICE DAILY 200 Each 3 12/23/2022 Active Torsemide 20 MG Oral Tablet (Demadex)Indication s:Atherosclerotic heart disease of [place] coronary artery with other forms of angina [...] bedtime 180 Tablet 3 01/16/2023 Active Nystatin 263334 UNIT/GM External Powder (Nystop)Indications :Candidal intertrigo Apply [...] neuropathy, with long-term current use of insulin ([facility]) use to test blood sugar 3 times daily 300 Strip 3 01/16/2023 Active Nystatin 660710 UNIT/ML Mouth/Throat Suspension SWISH AND SWALLOW 5ML [...] 02, 2023. 42 g 0 05/02/2023 05/16/20 23 Active [...] mg daily Atherosclerotic heart diseas e of [place] coronary artery with other forms of angina pectoris 11/15/2021 Last Assessment & Plan: Stable. No angina -continue toprol, ASA and statin Seasonal allergies 11/15/2021 Recurrent UTI 10/07/2021 Last Assessment & Plan: Followed by urology Pt is supposed to be on methenamine--will need to clarify with dgt that she is giving this. 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/2014 senior living current use of ant icoagulant therapy 06/17/2006 [...] encounter Miscellaneous Notes * Telephone Encounter - Roderick Kumar OSA - 05/02/2023 9:54 AM EDT Inbound call from Kendy at [facility], she said she needs an actual physicians' signature on home infusion order in order to complete, mentioned that Ebony Brock is out today and she said she would TT Dr Alonzo directly for same documented in this encounter Plan of Treatment Upcoming Encounters Date Type Department Care Team (Late st Contact Info) Description 05/05/2023 10:30 AM EDT Office Visit Cardiology, [facility] [address] [place] [address] Sobia Brewster PA-C [address] [place] [address] 05/09/2023 1:20 PM EDT Office Visit Gastroenterology, [facility] [address] [place] [address] Wendy Frias, [address] [place] [address] 05/12/2023 3:00 PM EST Telemedicine [facility], [place] [address] [place] [address] Lashay Blevins PA-C [address] [place] [address] Beverly Lozoya, [address] [place] [address] 06/25/2023 12:40 PM EST Office Visit Infectious Disease [facility] [place] [address] [facility] [address] Vidya Fabian MD [address] [place] [address] 07/14/2023 9:20 AM EST Office Visit Pulmonary Medicine, [place] [address] [place] [address] Mary Grace Johnson MD [address] [place] [address] 08/04/2023 3:45 PM EST Telemedicine Urology Kimberly Harmon [address] [place] [address] Alfredo Panda MD [address] [place] [address] 7, Telemed [facility] Urology Ex Rm [address] [place] [address] 08/12/2023 6:20 PM EST Office Visit [facility] [address] [place] [address] Brian Domínguez MD [address] [place], [place] [address] Scheduled Procedures Name Priority Associated Diagnoses Date/Ti [...] Additional history exists CKD PHOS USE SMARTSET 47688 10/24/202310/05, 02/18/2022, 02/17/2022, Additional history exists TSH 02/14/2024 02/13/2023, 10/05, 02/28/2022, Additional history exists CKD HGB USE SMARTSET 14291 02/19/202402/18, 02/11/2023, 02/07/2023, Additional history exists Colonoscopy [...] this encounter Medical Devices Implanted Type Area Plastic Surgery Assistant Device Identifier Shelf Expiration Date Model / Serial / Lot Sut Steel 6 [id number] - [id number] Implanted:Qty: 1 on 02[place]15[place]2011 [place] [facility] [place] Chest DO NOT USE 07/21/2015 [id number] / / [id number] documented as of this encounter Advance Directives Documents on File Type Date Recorded Patient Bag Machine Operator Helper Expl anation POL 05/06/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 Question Answer Comments Discussion of Advance Directives occurred with: Patient Does the patient have a Living Will? No Does the patient have Health Care Power of Supervisor Safety Deposit? No Code Status History Code Status Date [...] the patient have Health Care Power of Supervisor Safety Deposit? No Full Code 02/01/2010 4:02 PM 02/02/2010 4:09 PM This order reflects the patients wishes and were consensually agreed upon. Question Answer Comments Discussion of Advance Directives occurred with: Not Discussed Does the patient have a Living Will? No Does the patient have Health Care Power of Supervisor Safety Deposit? No Healthcare Agents on File Name Relationship Healthcare Agent [facility] p Communication Carolyn Ballard Adult Child Health Care Agent Care Teams Rubbing Bed Operator Relationship Specialty Start Date End Date Brian Domínguez MD [address] [place] [address] PCP - General Family Medicine 07/16/17 documented as of this encounter
--- OUTSIDE RECORDS SUMMARY | 2023-05-17 12:06 | External Medical Summary | Summary of Care ---
Author Name Unknown Organization [facility] Address [address] [place] [address] Phone [phone] Care Team Providers Care Detective Private Eye Name Role Phone Brian Domínguez MD Primary Care Provider [phone]- [phone] Reason for Visit * Reason Onset Date Comments case management 04/25/2023 Encounter Details Date Type Department Care Team Description 04/25/2023 Sat Instructor Telephone Family [facility] [address] [place] [address] Nayla Bellamy, RN [address] [place] [address] case management Allergies Active Allergy Reactions Severity Noted Date Comments Propoxyphene Hcl Rash Low 10/29/2010 Fentanyl Diarrhea Low 04/26/2010 anxiety Methocarbamol Medium 10/05/2020 Other reaction(s): Delirium Methocarbamol Low 04/15/2007 Zolpidem Low 10/05/2020 Other reaction(s): Confusion documented as of this encounter (statuses as of 04/25/2023) Medications Medication Sig Dispensed Refills Start Date End Date Status ARIPiprazole (ABILIFY) 2 MG Tablet Take 1 Tablet by mouth in the morning. 0 2015 Active venlafaxine XR (EFFEXOR XR) 150 MG [id number]:Dep ression Take 1 Cap by mouth daily. With food. 30 Cap 5 09/02/2016 Active Additional Information Patient taking differently: 225 mgOral Daily(AM),Taking a total of 225 mg, Indications: Takes 225 mg total every morning with food (150 mg tab + 75 mg tab), Reported on 03/03/2023 Blood Glucose Monitoring Suppl ([employer] GLUCOMETER) w/Device KITIndications:Unco ntrolled type 2 diabetes mellitus without complication, without long-term current use of insulin Use as directed. Use as directed once daily 1 Kit 0 11/18/2017 Active Blood Glucose Monitoring Suppl (Epiphyte VERIO) w/Device KIT Use as directed. Use as directed. 1 Kit 0 10/31/2018 Active Spacer/Aero-Holding Chambers WISAM Use with inhaler. Wheezing/bronchitis . 1 Device 0 04/08/2019 Active [employer]Smart[employer]abitat Lancets 33G MISC USE UP TO FOUR TIMES A DAY Dx:E11.4 100 Each 5 09/30/2019 Active Lancet Devices ([employer]UCH DELICA LANCING DEV) MISC Use four times [...] Respimat 2.5 MCG/ACT Inhalation Aerosol Solution (Tiotropium [place] Monohydrate) Inhale by mouth 2 Puffs in [...] 06/05/2022 Active Vitamin D (Ergocalciferol) 1.25 MG (82455 UT) Oral Capsule (Drisdol)Indication s:Vitamin D deficiency [...] 90 Tablet 1 12/19/2022 Active UltiCare Pen [place] 31G X 5 MM (Insulin Pen Needle) use TWICE DAILY 200 Each 3 12/23/2022 Active Torsemide 20 MG Oral Tablet (Demadex)Indication s:Atherosclerotic heart disease of qagan tayagungin coronary artery with other forms of angina [...] bedtime 180 Tablet 3 01/16/2023 Active Nystatin 326452 UNIT/GM External Powder (Nystop)Indications :Candidal intertrigo Apply [...] long-term current use of insulin ([facility]) use to test blood sugar 3 times daily 300 Strip 3 01/16/2023 Active Nystatin 653606 UNIT/ML Mouth/Throat Suspension SWISH AND SWALLOW 5ML [...] as of this encounter (statuses as of 04/25/2023) Active Problems Problem Noted Date Medical home patient encounter 3 Hypertensive heart and kidne y disease with chronic diastolic congestive heart failure and stage 3a chronic kidney disease 12/28/2021 Last Assessment & Plan: Euvolemic, BP stable EF 55% 09/25 GFR 69 02/25 -Continue Torsemide 20 mg BID, Spironolactone 25 mg BID, Tropol XL 50 mg daily 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 No angina -continue toprol, ASA and statin Seasonal allergies 11/15/2021 Recurrent UTI 10/07/2021 Last Assessment & Plan: Followed by urology Pt is supposed to be on methenamine--will need to clarify with dgt that she is giving this. 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 Stable today --spironolactone 50mg daily Portal hypertensive gastropathy 05/06/20 18 Last Assessment & Plan: Followed by GI Endoscopy planned 01/16/22 Moderate aortic stenosis 05/06/2018 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 Anxiety 08/05/2017 Qwpmglh-Eyfde-Eacys disease 06/27/2015 Last Assessment & Plan: Frequent falls Home PT and OT continue MEDICATION USE AGREEMENT 01/17/2015 Overview: Signed 01/04/2015 HTN, goal below 130/80 09/06/2014 Bipolar I disorder, most recent episode depressed, moderate 06/09/2012 Last Assessment & Plan: Slightly depressed today, but overall stable -continue effexor, lamictal, trazadone, and abilify Hypothyroidism 02/15/2011 Dyslipidemia, goal LDL below 70 02/13/20 11 S/P angioplasty with stent 02/01/2010 Gastroesophageal reflux disease without esophagitis 05/04/2004 Overview: Updated due to amp error PERONEAL MUSCLE ATROPHY 12/31/2002 GONZALEZ (nonalcoholic steatohepatitis) documented as of this encounter (statuses as of 04/25/2023) Resolved Problems Problem Noted Date Resolved Date Open wound of left heel 03/12/2022 07/08/19 23 Last Assessment & Plan: Pressure ulcer -off loading. Use waffle boots. 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 05/06/2018 08/27/2021 Thrombocytopenia 05/06/2018 02/09/2021 Portal hypertension 05/06/2018 08/28/2018 Hepatic encephalopathy 05/06/2018 2 Uncontrolled type 1 diabetes mellitus with complication, with long-term current use of insulin 09/07/2015 05/07/2018 Overview: ICD-10 update of inactive term Bilateral low back pain without sciatica 015 08/28/2018 Abnormal results of liver function studies 05/2707/19/2014 Unstable angina 05/26/2014 08/05/2017 ASCVD (arteriosclerotic cardiovascular disease) 05/26/2014 05/26/2014 Recurrent falls 05/26/2014 08/28/2018 Nausea 05/26/2014 07/19/2014 Overview: ICD-10 update of inactive term Cutaneous candidiasis 01/21/2014 08/28/2018 Intertrigo 01/21/2014 07/19/2014 Elevated CK 06/09/2012 07/19/2014 Chest pain 06/09/2012 07/19/2014 Falls frequently 06/09/2012 07/19/2014 Edema 06/09/2012 08/28/2018 UTI (urinary tract infection) 05/26/2012 Dysuria 05/26/2012 07/19/2014 Urinary frequency 05/26/2012 07/19/2014 Urinary incontinence 05/26/2012 07/08/2022 Overview: ICD-10 update of inactive term MEDICATION USE AGREEMENT 05/26/2012 015 Overview: 05/26/12 Lumbago 05/26/2012 07/19/2014 HTN, goal below 140/80 02/24/2012 03/201 5 Overview: Per HTN Protocol #27. Severe obesity with body mas s index (BMI) of 35.0 to 39.9 with serious comorbidity 02/04/2012 04/29/2019 Overview: bmi= 38.85 02/04/12 ICD-10 update of inactive diagnosis Delirium 02/04/2012 07/19/2014 Sepsis 02/04/2012 07/19/2014 Cellulitis of left foot 02/04/2012 06/27/20 15 Sundowning 02/04/2012 07/19/2014 S/P CABG x 1 07/17/2011 08/19/2012 ASCVD (arteriosclerotic cardiovascular disease) 07/17/2011 09/07/2018 Elevated liver enzymes 06/25/2011 5 Unstable angina 02/12/2011 01/21/2014 Recurrent In-stent stenosis 10/31/201008/08 Acute coronary syndrome 10/30/2010 01/22/20 14 [employer] Research Other*[id number] 02/02/2010 04/18/2014 Overview: [place] [facility], Dr Joel CASAS Obesity, morbid (more than 1 00 lbs over ideal weight or BMI > 40) 10/03/2009 06/27/2015 Overview: Per Obesity Taxonomy, referred to Dr. Portillo 04/10. HTN, goal below 130/80 08/02/2009 2 Overview: Per HTN Taxonomy. Type 2 diabetes [...] Duplicate Protocol #2. 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/2014 [facility] current use of anticoagulant therapy 1 08/18/2005 01/21/2014 Overview: ICD-10 update of inactive term Anticoagulation management encounter 06/17/2006 01/21/2014 BACKACHE NOS 02/06/2005 01/21/2014 ADVANCE DIRECTIVE INFORMATION 02/04/2005 Overview: No, Advance Directive brochure given to patient at prior appointment. CHRONIC UTI (Klebsiella) 02/04/2005 018 Overview: referred to Urology. ACUTE SINUSITIS NOS 11/05/2004 05/06/2005 ACUTE URI NOS 11/05/2004 05/06/2005 ACUTE PHARYNGITIS 11/05/2004 05/06/2005 Volume depletion 11/05/2004 05/06/2005 Fever and other physiologic disturbances of temperature regulation 11/05/2004 05/06/2005 Overview: ICD-10 update of inactive term BIPOLAR, Depressed - INPT ADMISSION NOTE 005 05/26/2014 Overview: in [place] from 08/06/04 - 08/17/04 (dx's with bipolar d/o, w/ depression) dc meds: lexapro 20mg qhs, depakote 1000mg qhs, clonazepam 0.5mg bid. started remeron (08/11) 15mg qhs, d/c'd ambien, valium prn. MIGRAINE, NOS 05/25/2004 01/21/2014 Dysuria 05/25/2004 01/21/2014 Morbid obesity, BMI not known 05/25/2004 Overview: Per Obesity Taxonomy, referred to Dr. Portillo 04/10. ELECTROLYT-FLUID DIS NEC 05/25/2004 014 PREMENSTRUAL TENSION 05/04/2004 11/05/2005 Type 2 diabetes mellitus wit h hemoglobin A1c goal of less than 7.0% 05/04/2004 05/04/2009 Overview: Per Diabetes Taxonomy. diet controlled, 03/07/05 hgba1c 5.4 ICD-10 update of inactive term HTN, goal below 140/90 05/04/2004 0 Overview: Per HTN Taxonomy. Carpal tunnel syndrome 12/31/2002 6 documented as of this encounter (statuses as of 04/25/2023) Immunizations Name Administration Dates Next Due COVID-19 [...] drink = 0.6 oz pur e alcohol) Food Insecurity Answer Date Recorded Within the past 12 months, y ou worried that your food would run out before you got money to buy more. Never true 02/22/2019 Within the past 12 months, t he food you bought just didn't last and you didn't have money to get more. Never true 02/22/2019 Sex Assigned at Date Recorded Female 11/04/2018 4:56 PM E DT Job Start Date Occupation Industry Not on file Not on file Not on file documented as of this encounter Miscellaneous Notes * Telephone Encounter - Nayla Bellamy RN - 04/25/2023 2:19 PM EDT CM Progress note S: received a teams message from HEMAL Marks provider, who ordered a urine culture for daughters concerns of possible uti. O: phone call A: spoke with Azuro P: reached out to [employer] requesting visit to obtain urin culture. Faxed orders to them [phone]. documented in this encounter Plan of Treatment Upcoming Encounters Date Type Specialty Care Team Description 04/28/2023 Office Visit Family Medicine Brian Domínguez MD [address] [place] [address] 04/29/2023 Home Visit Family Medicine Andie Lassiter, [facility] Tender [address] [place] [address] 05/05/2023 Office Visit Cardiology Sobia Brewster PA-C [address] [place] [address] 05/09/2023 Office Visit Gastroenterology Wendy Frias DO [address] [place] [address] 05/12/2023 Telemedicine [facility] Lashay Blevins PA-C [address] [place] [address] Beverly Lozoya, [facility] [address] [place] [address] 06/25/2023 Office Visit Infectious Disease Vidya Fabian MD [address] [place] [address] 07/14/2023 Office Visit Pulmonary Mary Grace Johnson MD [address] [place] [address] 08/04/2023 Office Visit Urology Alfredo Panda MD [address] [place] [address] Scheduled Procedures Name Priority Associated Diagnoses Date/Ti [...] Additional history exists CKD PHOS USE SMARTSET 44560 10/24/202310/05, 02/18/2022, 02/17/2022, Additional history exists TSH 02/14/2024 02/13/2023, 10/05, 02/28/2022, Additional history exists CKD HGB USE SMARTSET 94066 02/19/202402/18, 02/11/2023, 02/07/2023, Additional history exists Colonoscopy [...] this encounter Medical Devices Implanted Type Area Acid Crane Operator Device Identifier Shelf Expiration Date Model / Serial / Lot Sut Steel 6 [id number] - [id number] Implanted:Qty: 1 on 02/15/2011 at OR [facility] N/A: Chest DO NOT USE 07/21/2015 [id number] / / [id number] documented as of this encounter Advance Directives Documents on File Type Date Recorded Patient 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 No Code Status History Code Status Date [...] patient have Health Care Power of Manager Corporate Marketing? No Full Code 02/01/2010 4:02 PM 02/02/2010 4:09 PM This order reflects the patients wishes and were consensually agreed upon. Question Answer Comments Discussion of Advance Directives occurred with: Not Discussed Does the patient have a Living Will? No Does the patient have Health Care Power of Manager Corporate Marketing? No Healthcare Agents on File Name Relationship Healthcare Agent [facility] Communication Carolyn Goldmandrewnabila Adult Child Health Care Agent Care Teams Detective Private Eye Relationship Specialty Start Date End Date Brian Domínguez MD [address] [place] [address] PCP - General Family Medicine 07/16/17 documented as of this encounter
--- OUTSIDE RECORDS SUMMARY | 2023-05-17 12:06 | External Medical Summary | Summary of Care ---
Author Name Unknown Organization [facility] Address [address] [place] [address] Phone [phone] Care Team Providers Care [place] Maori Name Role Phone Brian Domínguez MD Primary Care Provider +1- [phone] Reason for Visit * Reason Onset Date Comments case management 04/29/2023 Encounter Details Date Type Department Care Team (Late st Contact Info) Description 04/29/2023 Entry Level Financial Analyst Telephone Family Practice [facility] [address] [facility] [address] Nayla Bellamy, RN [address] [place] [address] case management Allergies Active Allergy Reactions Criticality Noted Date Comments Propoxyphene Hcl Rash Low 10/29/2010 Fentanyl Diarrhea Low 04/26/2010 anxiety Methocarbamol Medium 10/05/2020 Other reaction(s): Delirium Methocarbamol Low 04/15/2007 Zolpidem Low 10/05/2020 Other reaction(s): Confusion documented as of this encounter (statuses as of 04/30/2023) Medications Medication Sig Dispensed Refills Start Date End Date Status ARIPiprazole (ABILIFY) 2 MG Tablet Take 1 Tablet by mouth in the morning. 0 2015 Active venlafaxine XR (EFFEXOR XR) 150 MG [id number]:Dep ression Take 1 Cap by mouth daily. [...] 0 11/18/2017 Active Blood Glucose Monitoring Suppl ([employer]Audience VERIO) w/Device KIT Use as directed. Use as directed. 1 Kit 0 10/31/2018 Active Spacer/Aero-Holding Chambers WISAM Use with inhaler. Wheezing/bronchitis . 1 Device 0 04/08/2019 Active [employer] DelConstruct Lancets 33G MISC USE UP TO FOUR TIMES A DAY Dx:E11.4 100 Each 5 09/30/2019 Active Lancet Devices (CyPhy WorksTOUCH DELICA LANCING DEV) MISC Use four times [...] Respimat 2.5 MCG/ACT Inhalation Aerosol Solution (Tiotropium [place] Monohydrate) Inhale by mouth 2 Puffs in [...] 06/05/2022 Active Vitamin D (Ergocalciferol) 1.25 MG (26700 UT) Oral Capsule (Drisdol)Indication s:Vitamin D deficiency [...] 90 Tablet 1 12/19/2022 Active UltiCare Pen [place] 31G X 5 MM (Insulin Pen Needle) use TWICE DAILY 200 Each 3 12/23/2022 Active Torsemide 20 MG Oral Tablet (Demadex)Indication s:Atherosclerotic heart disease of moapa coronary artery with other forms of angina pectoris (HCC),Hypertensive heart disease with chronic diastolic congestive heart failure ([facility]) TAKE 1 TABLET BY MOUTH EVERY MORNING. MAY TAKE 1 ADDITIONAL TABLET NEEDED FOR SWELLING. 90 Tablet 1 12/24/2022 Active Spironolactone 50 MG Oral Tablet (Aldactone)Indicati ons:GONZALEZ (nonalcoholic steatohepatitis),Po rtal hypertension (HCC),Chronic liver disease and cirrhosis,Portal hypertensive gastropathy Take 1 tablet by mouth in the morning and before bedtime 180 Tablet 3 01/16/2023 Active Nystatin 316719 UNIT/GM External Powder (Nystop)Indications :Candidal intertrigo Apply [...] current use of insulin ([facility]) use to test blood sugar 3 times daily 300 Strip 3 01/16/2023 Active Nystatin 754611 UNIT/ML Mouth/Throat Suspension SWISH AND SWALLOW 5ML [...] as of this encounter (statuses as of 04/30/2023) Active Problems Problem Noted Date Diagnosed Date Medical home patient encounter 01/06/2023 Hypertensive heart and kidne y disease with chronic diastolic congestive heart failure and stage 3a chronic kidney disease 12/28/2021 Last Assessment & Plan: Euvolemic, BP stable EF 55% 09/25 GFR 69 02/25 -Continue Torsemide 20 mg BID, Spironolactone 25 mg BID, Tropol XL 50 mg daily Atherosclerotic heart diseas e of moapa coronary artery with other forms of angina pectoris 11/15/2021 Last Assessment & Plan: Stable. No angina -continue toprol, ASA and statin Seasonal allergies 11/15/2021 Recurrent UTI 10/07/2021 Last Assessment & Plan: Followed by urology Pt is supposed to be on methenamine--will need to clarify with dgt that she is giving this. 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 09/29/2019 Diabetic gastroparesis [...] 05/06/2018 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 Anxiety 08/05/2017 Cgeqexc-Pgagk-Vosio disease 06/27/2015 Last Assessment & Plan: Frequent [...] as of this encounter (statuses as of 04/30/2023) Resolved Problems Problem Noted Date Diagnosed Date [...] liver 05/06/2018 Atherosclerotic heart diseas e of moapa coronary artery with other forms of angina [...] stenosis 10/31/2010 08/28/2018 Acute coronary syndrome 10/30/201001/04 [place] Research Other*[id number] 02/02/2010 04/18/2014 Overview: [place] [facility], Dr Joel CASAS Obesity, morbid (more [...] Duplicate Protocol #2. 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 of ant [...] as of this encounter (statuses as of 04/30/2023) Immunizations Name Administration Dates Next Due COVID-19 [...] 05/05/2023 10:30 AM EDT Office Visit Cardiology, [facility] [address] [facility] [place] [address] Sobia Brewster PA-C [address] [place] [address] 05/09/2023 1:20 PM EDT Office Visit Gastroenterology, [facility] [address] [place] [address] Wendy Frias DO [address] [place] [address] 05/12/2023 3:00 PM EST Telemedicine [facility], [place] [place] [address] aLshay Blevins PA-C [address] [place] [address] Beverly Lozoya [facility] [address] [place] [address] 06/25/2023 12:40 PM EST Office Visit Infectious Disease [facility] [address] [facility] [place] [address] Vidya Fabian MD [address] [place] [address] 07/14/2023 9:20 AM EST [facility] [address] [place] [address] Mary Grace Johnson MD [address] [place] [address] 08/04/2023 3:45 PM EST Telemedicine Urology Kimberly Harmon [address] [place] [address] Alfredo Panda MD [address] [place] [address] 7, Telemed [facility] Urology Ex R[address] [place] [address] 08/12/2023 6:20 PM EST Office Visit [facility] [address] [place] [address] Biran Domínguez MD [address] [place], [place] [id number] Scheduled Procedures Name Priority Associated Diagnoses Date/Ti [...] , 12/23/2012, Additional history exists COVID-19 Vaccine (4 - 2023-24 season) 2023 06/10/2021, 08/29/2020, 08/01/2020 Influenza Vaccine (FLU shot) (#1) 2023 03/14/2022, 03/14/2022, 04/10/2021, Additional history exists HbA1c 04/24/2023 10/23/2022, 04/07, 11/01/2021, Additional history exists GFR 08/21/2023 02/18/2023, 0802/2023, 02/07/2023, Additional history exists Albumin/Creatinine Ratio 10/24/2023 023, 07/17/2022, 10/05/2020, Additional history exists CKD PHOS USE SMARTSET 61863 10/24/202310/05, 02/18/2022, 02/17/2022, Additional history exists TSH 02/14/2024 02/13/2023, 10/05, 02/28/2022, Additional history exists CKD HGB USE SMARTSET 22376 02/19/202402/18, 02/11/2023, 02/07/2023, Additional history exists Colonoscopy [...] this encounter Medical Devices Implanted Type Area Director Semiconductor Device Identifier Shelf Expiration Date Model / Serial / Lot Jenna Rojas 6 [id number] - [id number] [place]planted:Q[place] 1 [place] 02[place] [facility] [place]: Chest DO NOT USE 07/21/2015 [id number] / / [id number] documented as of this encounter Advance Directives Documents on File Type Date Recorded Patient Desolderer 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 Question Answer Comments Discussion of Advance Directives occurred with: Patient Does the patient have a Living Will? No Does the patient have Health Care Power of Electronic Organ Technician? No Code Status History Code Status Date [...] the patient have Health Care Power of Electronic Organ Technician? No Full Code 02/01/2010 4:02 PM 02/02/2010 4:09 PM This order reflects the patients wishes and were consensually agreed upon. Question Answer Comments Discussion of Advance Directives occurred with: Not Discussed Does the patient have a Living Will? No Does the patient have Health Care Power of Electronic Organ Technician? No Healthcare Agents on File Name Relationship Healthcare Agent [facility] Communication Carolyn Ballard Adult Child Health Care Agent Care Teams [place] Relationship Specialty Start Date End Date Brian Domínguez MD [address] [place] [address] PCP - General Family Medicine 07/16/17 documented as of this encounter
--- OUTSIDE RECORDS SUMMARY | 2023-05-17 12:06 | External Medical Summary | Summary of Care ---
Author Name Unknown Organization [facility] Address [address] [place] [address] Phone [phone] Care Team Providers Care Merchandising Team Lead Name Role Phone Brian Domínguez MD Primary Care Provider +1- [phone] Reason for Visit * Reason Onset Date Comments Advice 04/25/2023 Encounter Details Date Type Department Care Team Description 04/25/2023 Telephone [facility] [place] [address] [place] [address] Lashay Blevins PA-C [address] [place] [address] Advice Allergies Active Allergy Reactions Severity Noted Date [...] Active venlafaxine XR (EFFEXOR XR) 150 MG [id number]:Dep ression Take 1 Cap by mouth daily. [...] 0 11/18/2017 Active Blood Glucose Monitoring Suppl (Varsity OpticsIO) w/Device KIT Use as directed. Use as directed. 1 Kit 0 10/31/2018 Active Spacer/Aero-Holding Chambers WISAM Use with inhaler. Wheezing/bronchitis . 1 Device 0 04/08/2019 Active Newscron DelFotomoto Lancets 33G MISC USE UP TO FOUR TIMES A DAY Dx:E11.4 100 Each 5 09/30/2019 Active Lancet Devices (SmartKemTOUCH DELICA LANCING DEV) MISC Use four times [...] Respimat 2.5 MCG/ACT Inhalation Aerosol Solution (Tiotropium [place] Monohydrate) Inhale by mouth 2 Puffs in [...] 06/05/2022 Active Vitamin D (Ergocalciferol) 1.25 MG (29605 UT) Oral Capsule (Drisdol)Indication s:Vitamin D deficiency [...] 90 Tablet 1 12/19/2022 Active UltiCare Pen [place] 31G X 5 MM (Insulin Pen Needle) use TWICE DAILY 200 Each 3 12/23/2022 Active Torsemide 20 MG Oral Tablet (Demadex)Indication s:Atherosclerotic heart disease of [place] coronary artery with other forms of angina [...] bedtime 180 Tablet 3 01/16/2023 Active Nystatin 435544 UNIT/GM External Powder (Nystop)Indications :Candidal intertrigo Apply [...] with long-term current use of insulin ([facility]) use to test blood sugar 3 times daily 300 Strip 3 01/16/2023 Active Nystatin 709933 UNIT/ML Mouth/Throat Suspension SWISH AND SWALLOW 5ML [...] mg daily Atherosclerotic heart diseas e of [place] coronary artery with other forms of angina pectoris 11/15/2021 Last Assessment & Plan: Stable. No angina -continue toprol, ASA and statin Seasonal allergies 11/15/2021 Recurrent UTI 10/07/2021 Last Assessment & Plan: Followed by urology Pt is supposed to be on methenamine--will need to clarify with dgt that she is giving this. 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-bow maker custom and ID Type 2 diabetes mellitus wit [...] drugs Pelvic pain 03/27/2021 Urge incontinence 03/27/2021 residential (current) use of insulin 09/28 Diabetic gastroparesis 04/28/2019 Type 2 diabetes mellitus with diabetic n europathy 09/07/2018 Hypertensive heart disease with chronic diastolic congestive heart failure 05/06/2018 Fatty liver 05/06/2018 Chronic liver disease and cirrhosis 04/08 Last Assessment & Plan: Followed by GI Reports compliance with lactulose. Stable today --spironolactone 50mg daily Portal hypertensive gastropathy 05/06/20 Last Assessment & Plan: Followed by GI Endoscopy planned 01/16/22 Moderate aortic stenosis 05/06/2018 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 Anxiety 08/05/2017 Lmgneql-Eyxhg-Emjdz disease 06/27/2015 Last Assessment & Plan: Frequent [...] 05/06/2018 019 Atherosclerotic heart diseas e of [place] coronary artery with other forms of angina [...] 05/26/2012 07/19/2014 HTN, goal below 140/80 02/24/2012 5 Overview: Per HTN Protocol #27. Severe [...] 10/31/201008/08 Acute coronary syndrome 10/30/2010 01/22/20 14 LOST[place] Research Other*[id number] 02/02/2010 04/18/2014 Overview: [place] Registry, Dr Joel CASAS Obesity, morbid (more [...] Duplicate Protocol #2. 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/2014 residential current use of anticoagulant therapy 1 08/18/2005 [...] Miscellaneous Notes * Telephone Encounter - Lashay Johnston PA-C - 04/25/2023 5:46 PM EDT Spoke with the patient, she reports feeling discomfort at the urethral site. Urine has been intermittently dark. She feels she is drinking enough fluids. She missed her recent Urology visit. Advised her I would like to check a urine culture prior to her taking antibiotics. No fever/chills or N/V. CM reached out to . Advised patient to let me know how she is doing on Friday. documented in this encounter Plan of Treatment Upcoming Encounters Date Type Specialty Care Team Description 04/28/2023 Office Visit Family Medicine Brian Domínguez MD [address] [place] [address] 04/29/2023 Home Visit Family Medicine Andie Lassiter, [facility] Gas Specialist [address] [place] [address] 05/05/2023 Office Visit Cardiology Sobia Brewster PA-C [address] [place] [address] 05/09/2023 Office Visit Gastroenterology Wendy Frias DO [address] [place] [address] 05/12/2023 Telemedicine [facility] Lashay Blevins PA-C [address] [place] [address] Beverly Lozoya, [facility] [address] [place] [address] 06/25/2023 Office Visit Infectious Disease Vidya Fabian MD [address] [place] [address] 07/14/2023 Office Visit Pulmonary Mary Grace Johnson MD [address] [place] [address] 08/04/2023 Office Visit Urology Alfredo Panda MD [address] [facility] [address] [place] [address] Scheduled Procedures Name Priority Associated Diagnoses Date/Ti [...] Additional history exists CKD PHOS USE SMARTSET 35354 10/24/202310/05, 02/18/2022, 02/17/2022, Additional history exists TSH 02/14/2024 02/13/2023, 10/05, 02/28/2022, Additional history exists CKD HGB USE SMARTSET 45394 02/19/202402/18, 02/11/2023, 02/07/2023, Additional history exists Colonoscopy [...] this encounter Medical Devices Implanted Type Area Dry Chain Offbearer Device Identifier Shelf Expiration Date Model / Serial / Lot Sut Bob 6 [id number] - [id number] Implanted:Qty: 1 on 02/15/2011 at OR [facility] [place] N/A: Chest DO NOT USE 07/21/2015 [id number] / / [id number] documented as of this encounter Advance Directives Documents on File Type Date Recorded Patient Lubricating Specialist Expl anation POL 05/06/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 Question Answer Comments Discussion of Advance Directives occurred with: Patient Does the patient have a Living Will? No Does the patient have Health Care Power of Warehouse Shipping Clerk? No Code Status History Code Status Date [...] the patient have Health Care Power of Warehouse Shipping Clerk? No Full Code 02/01/2010 4:02 PM 02/02/2010 4:09 PM This order reflects the patients wishes and were consensually agreed upon. Question Answer Comments Discussion of Advance Directives occurred with: Not Discussed Does the patient have a Living Will? No Does the patient have Health Care Power of Warehouse Shipping Clerk? No Healthcare Agents on File Name Relationship Healthcare Agent [facility] Communication Carolyn Goldmandrewnabila Adult Child Health Care Agent Care Teams Merchandising Team Lead Relationship Specialty Start Date End Date Brian Domínguez MD [address] [place] [address] PCP - General Family Medicine 07/16/17 documented as of this encounter
--- OUTSIDE RECORDS SUMMARY | 2023-05-17 12:06 | External Medical Summary | Summary of Care ---
Author Name Unknown Organization [facility] Address [address] [place] [address] Phone [phone] Care Team Providers Care Animal Shelter Worker Name Role Phone Brian Domínguez MD Primary Care Provider +1- [phone] Reason for Visit * Reason Onset Date Comments Med Request 05/01/2023 Encounter Details Date Type Department Care Team (Late st Contact Info) Description 05/01/2023 Telephone Family Practice [facility] [address] [facility] [place] [address] Lashay Blevins PA-C [address] [place] [address] Med Request Allergies Active Allergy [...] Active venlafaxine XR (EFFEXOR XR) 150 MG [id number]:Dep ression Take 1 Cap by mouth daily. [...] 0 11/18/2017 Active Blood Glucose Monitoring Suppl (HobbyTalk VERIO) w/Device KIT Use as directed. Use as directed. 1 Kit 0 10/31/2018 Active Spacer/Aero-Holding Chambers WISAM Use with inhaler. Wheezing/bronchitis . 1 Device 0 04/08/2019 Active Procarta Biosystems DelTargeted Instant Communications Lancets 33G MISC USE UP TO FOUR TIMES A DAY Dx:E11.4 100 Each 5 09/30/2019 Active Lancet Devices (HobbyTalk DELICA LANCING DEV) MISC Use four times [...] Respimat 2.5 MCG/ACT Inhalation Aerosol Solution (Tiotropium [place] Monohydrate) Inhale by mouth 2 Puffs in [...] 06/05/2022 Active Vitamin D (Ergocalciferol) 1.25 MG (89409 UT) Oral Capsule (Drisdol)Indication s:Vitamin D deficiency [...] 90 Tablet 1 12/19/2022 Active UltiCare Pen [place] 31G X 5 MM (Insulin Pen Needle) use TWICE DAILY 200 Each 3 12/23/2022 Active Torsemide 20 MG Oral Tablet (Demadex)Indication s:Atherosclerotic heart disease of [place] coronary artery with other forms of angina [...] bedtime 180 Tablet 3 01/16/2023 Active Nystatin 074007 UNIT/GM External Powder (Nystop)Indications :Candidal intertrigo Apply [...] long-term current use of insulin ([facility]) use to test blood sugar 3 times daily 300 Strip 3 01/16/2023 Active Nystatin 678834 UNIT/ML Mouth/Throat Suspension SWISH AND SWALLOW 5ML [...] mg daily Atherosclerotic heart diseas e of [place] coronary artery with other forms of angina pectoris 11/15/2021 Last Assessment & Plan: Stable. No angina -continue toprol, ASA and statin Seasonal allergies 11/15/2021 Recurrent UTI 10/07/2021 Last Assessment & Plan: Followed by urology Pt is supposed to be on methenamine--will need to clarify with dgt that she is giving this. 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/2014 longterm current use of ant icoagulant therapy 06/17/2006 [...] 05/05/2023 10:30 AM EDT Office Visit Cardiology, [facility] [address] [facility] [place] [address] Sobia Brewster PA-C [address] [facility] [place] [address] 05/09/2023 1:20 PM EDT Office Visit Gastroenterology, [facility] [address] [facility] [place] [address] Wendy Frias DO [address] [facility] [place] [address] 05/12/2023 3:00 PM EST Telemedicine [facility] [place] [address] [place] [address] Lashay Blevins PA-C [address] [place] [address] Beverly Lozoya, Community [facility] C Application Developer [address] [place] [address] [place] [address] 06/25/2023 12:40 PM EST Office Visit Infectious Disease [facility] [address] [place] [address] Vidya Fabian MD [address] [place] [address] 07/14/2023 9:20 AM EST [facility] [address] [place] [address] Mary Grace Johnson MD [address] [place], [place] [address] 08/04/2023 3:45 PM EST Telemedicine Urology Kimberly Harmon [address] [place] [address] Alfredo Panda MD [address] [place] [address] 7, Telemed [facility] Urology Ex Rm [address] [place] [address] 08/12/2023 6:20 PM EST Office Visit [place] [address] [place] [address] Brian Domínguez MD [address] [place] [address] Scheduled Procedures Name Priority Associated Diagnoses Date/Ti [...] Additional history exists CKD PHOS USE SMARTSET 92709 10/24/202310/05, 02/18/2022, 02/17/2022, Additional history exists TSH 02/14/2024 02/13/2023, 10/05, 02/28/2022, Additional history exists CKD HGB USE SMARTSET 83690 02/19/202402/18, 02/11/2023, 02/07/2023, Additional history exists Colonoscopy [...] this encounter Medical Devices Implanted Type Area Track Helper Device Identifier Shelf Expiration Date Model / Serial / Lot Jenna Rojas 6 [id number] - [id number] Implanted:Qty: 1 on 02/15/2011 at OR [facility] [place] N/A: Chest DO NOT USE 07/21/2015 [id number] / / [id number] documented as of this encounter Advance Directives Documents on File Type Date Recorded Patient Smooth Stucco Resurfacer 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 Question Answer Comments Discussion of Advance Directives occurred with: Patient Does the patient have a Living Will? No Does the patient have Health Care Power of Blood Coordinator? No Code Status History Code Status [...] the patient have Health Care Power of Blood Coordinator? No Full Code 02/01/2010 4:02 PM 02/02/2010 4:09 PM This order reflects the patients wishes and were consensually agreed upon. Question Answer Comments Discussion of Advance Directives occurred with: Not Discussed Does the patient have a Living Will? No Does the patient have Health Care Power of Blood Coordinator? No Healthcare Agents on File Name Relationship Healthcare Agent [facility] Communication Carolyn Goldmandrewnabila Adult Child Health Care Agent Care Teams Animal Shelter Worker Relationship Specialty Start Date End Date Brian Domínguez MD [address] [place] [address] PCP - General Family Medicine 07/16/17 documented as of this encounter
--- OUTSIDE RECORDS SUMMARY | 2023-05-17 12:06 | External Medical Summary | Summary of Care ---
Author Name Unknown Organization [facility] Address [address] [place] [address] Phone [phone] Care Team Providers Care Wire Weaver Name Role Phone Brian Domínguez MD Primary Care Provider +1- [phone] Reason for Visit * Reason Onset Date Comments Advice 04/25/2023 Encounter Details Date Type Department Care Team Description 04/25/2023 Telephone [facility] [place] [address] [place] [address] Lashay Blevins PA-C [address] [place] [address] Advice Allergies Active Allergy Reactions [...] Active venlafaxine XR (EFFEXOR XR) 150 MG [id number]:Dep ression Take 1 Cap by mouth daily. [...] 0 11/18/2017 Active Blood Glucose Monitoring Suppl (Urigen PharmaceuticalsIO) w/Device KIT Use as directed. Use as directed. 1 Kit 0 10/31/2018 Active Spacer/Aero-Holding Chambers WISAM Use with inhaler. Wheezing/bronchitis . 1 Device 0 04/08/2019 Active VidAngel DelQnect, llc Lancets 33G MISC USE UP TO FOUR TIMES A DAY Dx:E11.4 100 Each 5 09/30/2019 Active Lancet Devices (Document Security SystemsTOUCH DELICA LANCING DEV) MISC Use four times [...] Respimat 2.5 MCG/ACT Inhalation Aerosol Solution (Tiotropium [place] Monohydrate) Inhale by mouth 2 Puffs in [...] 06/05/2022 Active Vitamin D (Ergocalciferol) 1.25 MG (96311 UT) Oral Capsule (Drisdol)Indication s:Vitamin D deficiency [...] 90 Tablet 1 12/19/2022 Active UltiCare Pen [place] 31G X 5 MM (Insulin Pen Needle) use TWICE DAILY 200 Each 3 12/23/2022 Active Torsemide 20 MG Oral Tablet (Demadex)Indication s:Atherosclerotic heart disease of [place] coronary artery with other forms of angina [...] bedtime 180 Tablet 3 01/16/2023 Active Nystatin 739426 UNIT/GM External Powder (Nystop)Indications :Candidal intertrigo Apply [...] neuropathy, with long-term current use of insulin ([facility]) use to test blood sugar 3 times daily 300 Strip 3 01/16/2023 Active Nystatin 406287 UNIT/ML Mouth/Throat Suspension SWISH AND SWALLOW 5ML [...] mg daily Atherosclerotic heart diseas e of [place] coronary artery with other forms of angina pectoris 11/15/2021 Last Assessment & Plan: Stable. No angina -continue toprol, ASA and statin Seasonal allergies 11/15/2021 Recurrent UTI 10/07/2021 Last Assessment & Plan: Followed by urology Pt is supposed to be on methenamine--will need to clarify with dgt that she is giving this. 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/2014 custodial current use of anticoagulant therapy 1 08/18/2005 [...] Family Medicine Brian Domínguez MD [address] [place] [address] 04/29/2023 Home Visit Family Medicine Andie Lassiter, [facility] Metal Handler [address] [place] [address] 05/05/2023 Office Visit Cardiology Sobia Brewster PA-C [address] [place] [address] 05/09/2023 Office Visit Gastroenterology Wendy Frias DO [address] [place] [address] 05/12/2023 Telemedicine [facility] Lashay Blevins PA-C [address] [place] [address] Beverly Lozoya, [facility] [address] [place] [address] 06/25/2023 Office Visit Infectious Disease Vidya Fabian MD [address] [place] [address] 07/14/2023 Office Visit Pulmonary Mary Grace Johnson MD [address] [place] [address] 08/04/2023 Office Visit Urology Alfredo Panda MD [address] [facility] [address] [place] [address] Scheduled Procedures Name Priority Associated Diagnoses Date/Ti [...] Additional history exists CKD PHOS USE SMARTSET 40581 10/24/202310/05, 02/18/2022, 02/17/2022, Additional history exists TSH 02/14/2024 02/13/2023, 10/05, 02/28/2022, Additional history exists CKD HGB USE SMARTSET 06138 02/19/202402/18, 02/11/2023, 02/07/2023, Additional history exists Colonoscopy [...] this encounter Medical Devices Implanted Type Area Enchilada Maker Device Identifier Shelf Expiration Date Model / Serial / Lot Sut Bob 6 [id number] - [id number] Implanted:Qty: 1 on 02/15/2011 at OR [facility] [place] N/A: Chest DO NOT USE 07/21/2015 [id number] / / [id number] documented as of this encounter Advance Directives Documents on File Type Date Recorded Patient Carrot Grader Inspector Expl anation POL 05/06/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 Question Answer Comments Discussion of Advance Directives occurred with: Patient Does the patient have a Living Will? No Does the patient have Health Care Power of Electric Meter Tester Shop? No Code Status History Code Status Date [...] the patient have Health Care Power of Electric Meter Tester Shop? No Full Code 02/01/2010 4:02 PM 02/02/2010 4:09 PM This order reflects the patients wishes and were consensually agreed upon. Question Answer Comments Discussion of Advance Directives occurred with: Not Discussed Does the patient have a Living Will? No Does the patient have Health Care Power of Electric Meter Tester Shop? No Healthcare Agents on File Name Relationship Healthcare Agent [facility] Communication Carolyn Goldmandrewnabila Adult Child Health Care Agent Care Teams Wire Weaver Relationship Specialty Start Date End Date Brian Domínguez MD [address] [place] [address] PCP - General Family Medicine 07/16/17 documented as of this encounter
--- OUTSIDE RECORDS SUMMARY | 2023-05-17 12:06 | External Medical Summary | Summary of Care ---
Author Name Unknown Organization [facility] Address [address] [place] [address] Phone [phone] Care Team Providers Care Pourer Bull Ladle Name Role Phone Brian Domínguez MD Primary Care Provider [phone]- [phone] Reason for Visit * Reason Onset Date Comments Appointment 04/28/2023 Encounter Details Date Type Department Care Team (Late st Contact Info) Description 04/28/2023 Telephone [facility] [place] [address] [place] [address] [phone] Services, Scheduling [address] [place] [address] Appointment (//) Allergies Active Allergy Reactions Criticality Noted Date Comments Propoxyphene Hcl Rash Low 10/29/2010 Fentanyl Diarrhea Low 04/26/2010 anxiety Methocarbamol Medium 10/05/2020 Other reaction(s): Delirium Methocarbamol Low 04/15/2007 Zolpidem Low 10/05/2020 Other reaction(s): Confusion documented as of this encounter (statuses as of 04/28/2023) Medications Medication Sig Dispensed Refills Start Date End Date Status ARIPiprazole (ABILIFY) 2 MG Tablet Take 1 Tablet by mouth in the morning. 0 2015 Active venlafaxine XR (EFFEXOR XR) 150 MG VA03Ehiamvviial:Dep ression Take 1 Cap by mouth daily. [...] 0 11/18/2017 Active Blood Glucose Monitoring Suppl (MyNextRunUCH VERIO) w/Device KIT Use as directed. Use [...] Respimat 2.5 MCG/ACT Inhalation Aerosol Solution (Tiotropium Bath Monohydrate) Inhale by mouth 2 Puffs in [...] 06/05/2022 Active Vitamin D (Ergocalciferol) 1.25 MG (65322 UT) Oral Capsule (Drisdol)Indication s:Vitamin D deficiency [...] 90 Tablet 1 12/19/2022 Active UltiCare Pen Zimm[place] 31G X 5 MM (Insulin Pen Needle) use TWICE DAILY 200 Each 3 12/23/2022 Active Torsemide 20 MG Oral Tablet (Demadex)Indication s:Atherosclerotic heart disease of [place] coronary artery with other forms of angina [...] bedtime 180 Tablet 3 01/16/2023 Active Nystatin 795091 UNIT/GM External Powder (Nystop)Indications :Candidal intertrigo Apply [...] neuropathy, with long-term current use of insulin ([facility]) use to test blood sugar 3 times daily 300 Strip 3 01/16/2023 Active Nystatin 627764 UNIT/ML Mouth/Throat Suspension SWISH AND SWALLOW 5ML [...] as of this encounter (statuses as of 04/28/2023) Active Problems Problem Noted Date Diagnosed Date Medical home patient encounter 01/06/2023 Hypertensive heart and kidne y disease with chronic diastolic congestive heart failure and stage 3a chronic kidney disease 12/28/2021 Last Assessment & Plan: Euvolemic, BP stable EF 55% 09/25 GFR 69 02/25 -Continue Torsemide 20 mg BID, Spironolactone 25 mg BID, Tropol XL 50 mg daily Atherosclerotic heart diseas e of [place] coronary artery with other forms of angina pectoris 11/15/2021 Last Assessment & Plan: Stable. No angina -continue toprol, ASA and statin Seasonal allergies 11/15/2021 Recurrent UTI 10/07/2021 Last Assessment & Plan: Followed by urology Pt is supposed to be on methenamine--will need to clarify with dgt that she is giving this. 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/2014 assisted current use of ant icoagulant therapy 06/17/2006 [...] as of this encounter (statuses as of 04/28/2023) Immunizations Name Administration Dates Next Due COVID-19 [...] encounter Miscellaneous Notes * Telephone Encounter - DENG Cruz - 04/28/2023 3:03 PM EDT LMOM w/ daughter eliot to confirm ret kaco telemed appt for 05/12 at 3pm documented in this encounter Plan of Treatment Upcoming Encounters Date Type Department Care Team (Late st Contact Info) Description 04/29/2023 11:30 AM EDT Home Visit Care Coordination [address] [place] [address] Andie Lassiter, [facility] Net Applications Developer [address] [place] [address] 05/05/2023 10:30 AM EDT Office Visit Cardiology, [facility] [address] [facility] [place] [address] Sobia Brewster PA-C [address] [place] [address] 05/09/2023 1:20 PM EDT Office Visit Gastroenterology, [facility] [address] [facility] [facility] [place] [address] Wendy Frias, [address] [place] [address] 05/12/2023 3:00 PM EST Telemedicine [facility] [place] [address] [place] [address] Lashay Blevins PA-C [address] [place] [address] Beverly Lozoya, [facility] [address] [place] [address] 06/25/2023 12:40 PM EST Office Visit Infectious Disease [facility] [place] [address] [place] [address] Vidya Fabian MD [address] [place] [address] 07/14/2023 9:20 AM EST Office Visit Pulmonary Medicine, [place] [address] [place], [place] [id number] Mary Grace Johnson MD [address] [place], [place] [id number] 08/04/2023 3:45 PM EST Telemedicine Urology Kimberly Harmon [address] [place] [address] Alfredo Panda MD [address] [place] [address] 7, Telemed [facility] Urology Ex Rm [address] [place] [address] 08/12/2023 6:20 PM EST Office Visit [facility] [address] [place] [id number] Brian Domínguez MD [address] [place] [address] Scheduled Procedures Name Priority Associated Diagnoses Date/Ti [...] Additional history exists CKD PHOS USE SMARTSET 84021 10/24/202310/05, 02/18/2022, 02/17/2022, Additional history exists TSH 02/14/2024 02/13/2023, 10/05, 02/28/2022, Additional history exists CKD HGB USE SMARTSET 66859 02/19/202402/18, 02/11/2023, 02/07/2023, Additional history exists Colonoscopy [...] this encounter Medical Devices Implanted Type Area Consulting Nurse Device Identifier Shelf Expiration Date Model / Serial / Lot Jenna Rojas 6 [id number] - [id number] Implanted:Qty: 1 on 02/15/2011 at OR [facility] N/A: Chest DO NOT USE 07/21/2015 [id number] / / [id number] documented as of this encounter Advance Directives Documents on File Type Date Recorded Patient Program Mgr 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 Question Answer Comments Discussion of Advance Directives occurred with: Patient Does the patient have a Living Will? No Does the patient have Health Care Power of Hod Carrier? No Code Status History Code Status Date [...] the patient have Health Care Power of Hod Carrier? No Full Code 02/01/2010 4:02 PM 02/02/2010 4:09 PM This order reflects the patients wishes and were consensually agreed upon. Question Answer Comments Discussion of Advance Directives occurred with: Not Discussed Does the patient have a Living Will? No Does the patient have Health Care Power of Hod Carrier? No Healthcare Agents on File Name Relationship Healthcare Agent [facility] Communication Eliot Ballard Adult Child Health Care Agent Care Teams Pourer Bull Ladle Relationship Specialty Start Date End Date Brian Domínguez MD [address] [place] [address] PCP - General Family Medicine 07/16/17 documented as of this encounter
--- OUTSIDE RECORDS SUMMARY | 2023-05-17 12:07 | External Medical Summary | Summary of Care ---
Author Name Unknown Organization [facility] Address [address] [place] [address] Phone [phone] Care Team Providers Care Case Management Manager Name Role Phone Brian Domínguez MD Primary Care Provider [phone]- [phone] Reason for Visit * Reason Onset Date Comments Order Request 04/14/2023 FYI 04/14/2023 Encounter Details Date Type Department Care Team Description 04/14/2023 Telephone [facility] [address] [place] [address] Brian Domínguez MD [address] [place] [address] Order Request; Allergies Active Allergy Reactions Severity Noted Date Comments Propoxyphene Hcl Rash Low 10/29/2010 Fentanyl Diarrhea Low 04/26/2010 anxiety Methocarbamol Medium 10/05/2020 Other reaction(s): Delirium Methocarbamol Low 04/15/2007 Zolpidem Low 10/05/2020 Other reaction(s): Confusion documented as of this encounter (statuses as of 04/18/2023) Medications Medication Sig Dispensed Refills Start Date End Date Status ARIPiprazole (ABILIFY) 2 MG Tablet Take 1 Tablet by mouth in the morning. 0 07/11/19 16 Active venlafaxine XR (EFFEXOR XR) 150 MG LF55Nkjksjxvatg:De pression Take 1 Cap by mouth daily. [...] 11/19/19 18 Active Blood Glucose Monitoring Suppl (Jammin Java VERIO) w/Device KIT Use as directed. Use as directed. 1 Kit 0 11/01/19 19 Active Spacer/Aero-Holdin g Chambers WISAM Use with inhaler. Wheezing/bronchiti s. 1 Device 0 04/08/20 19 Active OneTouch Delica Lancets 33G MISC USE UP TO FOUR TIMES A DAY Dx:E11.4 100 Each 5 09/30/19 20 Active Lancet Devices (EverdreamUCH DELICA LANCING DEV) MISC Use four times [...] Respimat 2.5 MCG/ACT Inhalation Aerosol Solution (Tiotropium [place] Monohydrate) Inhale by mouth 2 Puffs in the morning. 4 g 3 04/25/20 22 Active Estradiol 0.1 MG/GM Vaginal Cream Administer into the vagina 1 g in the morning. 42.5 g 12 05/07/20 22 Active Additional Information Patient not taking.Reported on 03/03/2023 Diclofenac Sodium 1 % External Gel (Voltaren) Apply topically to affected area 2 times a day. 150 g 3 06/05/20 22 Active Vitamin D (Ergocalciferol) 1.25 MG (89861 UT) Oral Capsule (Drisdol)Indicatio ns:Vitamin D deficiency [...] bedtime and 1 in morning 0 09/09/19 23 Active Albuterol Sulfate HFA 108 (90 Base) [...] breakfast and other medications 90 Tablet 3 12/11/19 23 Active Xifaxan 550 MG Oral Tablet (rifAXIMin)Indicat ions:GONZALEZ (nonalcoholic steatohepatitis),C hronic liver disease and cirrhosis,Hepatic encephalopathy (HCC) TAKE 1 TABLET BY MOUTH TWICE DAILY 60 Tablet 5 12/17/19 23 Active Montelukast Sodium 10 MG Oral Tablet (Singulair)Indicat ions:Nasal sinus congestion,PND (post-nasal drip) TAKE 1 TABLET BY MOUTH ONCE DAILY 90 Tablet 1 12/20/19 23 Active UltiCare Pen [place] 31G X 5 MM (Insulin Pen Needle) use TWICE DAILY 200 Each 3 12/24/19 23 Active Torsemide 20 MG Oral Tablet (Demadex)Indicatio ns:Atherosclerotic heart disease of [place] coronary artery with other forms of angina pectoris (HCC),Hypertensive heart disease with chronic diastolic congestive heart failure ([facility]) TAKE 1 TABLET BY MOUTH EVERY MORNING. MAY TAKE 1 ADDITIONAL TABLET NEEDED FOR SWELLING. 90 Tablet 1 12/25/19 23 Active Spironolactone 50 MG Oral Tablet (Aldactone)Indicat ions:GONZALEZ (nonalcoholic steatohepatitis),P ortal hypertension ([facility]),Chronic liver disease and cirrhosis,Portal hypertensive gastropathy Take 1 tablet by mouth in the morning and before bedtime 180 Tablet 3 01/17/20 23 Active Nystatin 192502 UNIT/GM External Powder (Nystop)Indication s:Candidal intertrigo Apply [...] neuropathy, with long-term current use of insulin ([facility]) use to test blood sugar 3 times daily 300 Strip 01/17/20 23 Active Nystatin 503479 UNIT/ML Mouth/Throat Suspension SWISH AND SWALLOW 5ML [...] DAILY 60 Capsule 5 02/11/20 23 Active Oxybutynin Chloride ER 10 MG Oral Tablet Extended Release 24 Hour (Ditropan XL) TAKE 1 TABLET BY MOUTH EVERY MORNING 90 Tablet 0 02/14/20 23 Active Additional Information Patient taking differently: Taking 1/2 tablet, Reported on 03/03/2023 Polyethylene Glycol 3350 17 GM/SCOOP Oral Powder [...] 23 Active Benzonatate 100 MG Oral Capsule (Tessaljuliana Benson) TAKE ONE CAPSULE BY MOUTH THREE TIMES DAILY NEEDED for cough. do not cut, crush or chew 50 Capsule 0 04/10/20 23 Active Tamsulosin HCl 0.4 MG Oral Capsule (Flomax) TAKE 1 CAPSULE BY MOUTH EVERY MORNING 90 Capsule 0 04/11/20 23 Active Metoprolol Succinate ER 25 MG Oral Tablet Extended Release 24 Hour (toPROL XL) Take by mouth 1 Tablet in the morning. 90 Tablet 3 04/19/20 22 023 Discontinued Famotidine 40 MG Oral Tablet (Pepcid)Indication s:Gastroesophageal reflux disease with esophagitis without hemorrhage Take 1 Tablet by mouth in the morning. 90 Tablet 1 10/24/19 23 023 Discontinued documented as of this encounter (statuses as of 04/18/2023) Active Problems Problem Noted Date Medical home patient encounter 3 Hypertensive heart and kidne y disease with chronic diastolic congestive heart failure and stage 3a chronic kidney disease 12/28/2021 Last Assessment & Plan: Euvolemic, BP stable EF 55% 09/25 GFR 69 02/25 -Continue Torsemide 20 mg BID, Spironolactone 25 mg BID, Tropol XL 50 mg daily Atherosclerotic heart diseas e of [place] coronary artery with other forms of angina pectoris 11/15/2021 Last Assessment & Plan: Stable. No angina -continue toprol, ASA and statin Seasonal allergies 11/15/2021 Recurrent UTI 10/07/2021 Last Assessment & Plan: Followed by urology Pt is supposed to be on methenamine--will need to clarify with dgt that she is giving this. 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/2014 continuous churn buttermaker current use of anticoagulant therapy 1 08/18/2005 [...] as of this encounter (statuses as of 04/18/2023) Immunizations Name Administration Dates Next Due COVID-19 [...] encounter Miscellaneous Notes * Telephone Encounter - Hue Coates LPN - 04/18/2023 3:20 PM EDT Thank you, order faxed. * Telephone Encounter - Alfredo Panda MD - 04/18/2023 3:00 PM EDT Previous order was inpatient order, change to outpatient. Order signed. Thanks, HM * Telephone Encounter - Hue Coates LPN - 04/18/2023 9:49 AM EDT Catheter care order placed, please edit and sign, I will fax to [facility]. Thank you Yudith * Telephone Encounter - Alfredo Panda MD - 04/17/2023 1:54 PM EDT OK to place 18 fr mejia, keep f/u as scheduled. Thx, HM * Telephone Encounter - Hue Coates LPN - 04/17/2023 12:47 PM EDT Spoke with Yina ([employer] [facility]). States patient has had 16 fr mejia cath since discharge from hospital, changed multiple times. Asking if it can be increased to 18 due to leakage. Catheter functioning normally other than slight leakage. Please advise. If ok to change, they will need order faxed to [phone]. Thank you Yudith * Telephone Encounter - Brian Domínguez MD - 04/16/2023 3:05 PM EDT I would defer catheter decisions to urology * Telephone Encounter - DENG Vaughn - 04/14/2023 1:15 PM EDT Verena Catheter is leaking and Yina wants to know if she can change it to a 18 . documented in this encounter Plan of Treatment Upcoming Encounters Date Type Specialty Care Team Description 04/23/2023 Office Visit Infectious Disease Kendall Bell, DO [address] [place] [address] 04/28/2023 Office Visit Family Medicine Brian Domínguez MD [address] [place] [address] 05/05/2023 Office Visit Cardiology Sobia Brewster PA-C [address] [place] [address] 05/09/2023 Office Visit Gastroenterology Wendy Frias DO [address] [place] [address] 05/12/2023 Telemedicine [facility] Lashay Blevins PA-C [address] [place] [address] Beverly Lozoya, Community [facility] Head Nurse [address] [place] [address] [place] [address] 07/14/2023 Office Visit Pulmonary Mary Grace Johnson MD [address] [place] [address] 08/04/2023 Office Visit Urology Alfredo Panda MD [address] [place] [address] Scheduled Procedures Name Priority Associated Diagnoses [...] Additional history exists CKD PHOS USE SMARTSET 58714 10/24/202310/05, 02/18/2022, 02/17/2022, Additional history exists TSH 02/14/2024 02/13/2023, 10/05, 02/28/2022, Additional history exists CKD HGB USE SMARTSET 62850 02/19/202402/18, 02/11/2023, 02/07/2023, Additional history exists Colonoscopy [...] this encounter Medical Devices Implanted Type Area Decorative Greens Cutter Device Identifier Shelf Expiration Date Model / Serial / Lot [place] Steel 6 M654g - [id number] Implanted:Qty: 1 on 02/15/2011 at [place] [facility] N/A: Chest DO NOT USE 07/21/2015 [id number] / / [id number] documented as of this encounter Visit Diagnoses Diagnosis Mejia catheter in place- Primary Other postprocedural status documented in this encounter Advance Directives Documents on File Type Date Recorded Patient Pre Sales Technical Engineer Expl jeremy GARZON 05/06/2018 POL Latest Code Status on File Code Status Date Activated Date Inactivated Comments Full Code 06/25/2011 3:09 AM 06/26/2011 9:47 PM Thi s order reflects the patients wishes and were consensually agreed upon. Question Answer Comments Discussion of Advance Directives occurred with: Patient Does the patient have a Living Will? No Does the patient have Health Care Power of Grinder Machine Setter? No Code Status History Code Status Date [...] the patient have Health Care Power of Grinder Machine Setter? No Full Code 02/01/2010 4:02 PM 02/02/2010 4:09 PM This order reflects the patients wishes and were consensually agreed upon. Question Answer Comments Discussion of Advance Directives occurred with: Not Discussed Does the patient have a Living Will? No Does the patient have Health Care Power of Grinder Machine Setter? No Healthcare Agents on File Name Relationship [facility] Agent [facility] Carolyn Goldmangerard Adult Child Health Care Agent Care Teams Case Management Manager Relationship Specialty Start Date End Date Brian Domínguez MD [address] [place] [address] PCP - General Family Medicine 07/16/17 documented as of this encounter
--- OUTSIDE RECORDS SUMMARY | 2023-05-17 12:07 | External Medical Summary | Summary of Care ---
Author Name Unknown Organization [facility] Address [address] [place] [address] Phone [phone] Care Team Providers Care Computer Systems Consultant Name Role Phone Brian Domínguez MD Primary Care Provider [phone]- [phone] Reason for Visit * Reason Onset Date Comments Advice 04/21/2023 Encounter Details Date Type Department Care Team Description 04/21/2023 [place] Telephone Family Practice [facility] [address] [place] [address] Nayla Bellamy, RN [address] [place] [address] Advice Allergies Active Allergy Reactions Severity Noted Date Comments Propoxyphene Hcl Rash Low 10/29/2010 Fentanyl Diarrhea Low 04/26/2010 anxiety Methocarbamol Medium 10/05/2020 Other reaction(s): Delirium Methocarbamol Low 04/15/2007 Zolpidem Low 10/05/2020 Other reaction(s): Confusion documented as of this encounter (statuses as of 04/24/2023) Medications Medication Sig Dispensed Refills Start Date End Date Status ARIPiprazole (ABILIFY) 2 MG Tablet Take 1 Tablet by mouth in the morning. 0 6 Active venlafaxine XR (EFFEXOR XR) 150 MG [id number]:Dep ression Take 1 Cap by mouth daily. With food. 30 Cap 5 7 Active Additional Information Patient taking differently: 225 mgOral Daily(AM),Taking a total of 225 mg, Indications: Takes 225 mg total every morning with food (150 mg tab + 75 mg tab), Reported on 03/03/2023 Blood Glucose Monitoring Suppl (makexyz-[employer] GLUCOMETER) w/Device KITIndications:Unco ntrolled type 2 diabetes mellitus without complication, without long-term current use of insulin Use as directed. Use as directed once daily 1 Kit 0 8 Active Blood Glucose Monitoring Suppl (NanoIO) w/Device KIT Use as directed. Use as [...] Respimat 2.5 MCG/ACT Inhalation Aerosol Solution (Tiotropium [place] Monohydrate) Inhale by mouth 2 Puffs in the morning. 4 g 3 2 Active Estradiol 0.1 MG/GM Vaginal Cream Administer into the vagina 1 g in the morning. 42.5 g 12 2 Active Additional Information Patient not taking.Reported on 03/03/2023 Diclofenac Sodium 1 % External Gel (Voltaren) Apply topically to affected area 2 times a day. 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 Apply to right breast until rash resolved. 30 g 0 3 Active Sucralfate 1 GM Oral Tablet (Carafate)Indicatio ns:Gastroesophageal reflux disease with esophagitis without hemorrhage TAKE 1 TABLET BY MOUTH EVERY MORNING 90 Tablet 0 3 Active OneTouch Verio In Vitro Strip (Glucose Blood)Indications:T ype 2 diabetes mellitus with diabetic neuropathy, with long-term current use of insulin ([facility]) use to test blood sugar 3 times daily 300 Strip 3 3 Active Nystatin 979506 UNIT/ML Mouth/Throat Suspension SWISH AND SWALLOW 5ML IN THE MORNING AND 5ML AT NOON AND 5 ML IN THE EVENING AND 5ML BEFORE BEDTIME, FOR THRUSH 240 mL 1 3 Active oxyCODONE HCl 5 MG Oral Tablet (Oxy IR)Indications:Lumb ar spondylosis Take 1 Tablet by mouth every 8 hours as needed (pain). 60 Tablet 0 3 Active Additional Information Patient not taking.Reported on [...] BEFORE BEDTIME 60 Tablet 0 3 Active Benzonatate 100 MG Oral Capsule (Tessalon Perles) TAKE ONE CAPSULE BY MOUTH THREE TIMES DAILY NEEDED for cough. do not cut, crush or chew 50 Capsule 0 3 Active Tamsulosin HCl 0.4 MG [...] the morning.. 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 No angina -continue toprol, ASA and statin Seasonal allergies 11/15/2021 Recurrent UTI 10/07/2021 Last Assessment & Plan: Followed by urology Pt is supposed to be on methenamine--will need to clarify with dgt that she is giving this. 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/2014 director long term care current use of anticoagulant therapy 1 08/18/2005 [...] of inactive term HTN, goal below 140/90 05/04/200408/02/201 0 Overview: Per HTN Taxonomy. Carpal tunnel syndrome 12/31/2002 6 documented as of this encounter (statuses as of 04/24/2023) Immunizations Name Administration Dates Next Due COVID-19 [...] Telephone Encounter - Hue Coates LPN - 04/21/2023 4:20 PM EDT Spoke with pt, aware of prescription, no further questions. * Telephone Encounter - Alfredo Panda MD - 04/21/2023 4:17 PM EDT Rx for oxybutynin refilled. Thx, HM * Telephone Encounter - Nayla Bellamy RN - 04/21/2023 2:48 PM EDT CM Progress note S: patient called in to report that she had a catheter change last week to a 18fr, and this was painful to her all weekend. [facility] came today and changed to a 16fr mejia. It is draining without issue. Angelina feels as if she is having a lot of bladder spasms since the larger one was placed. She thought there was some blood in the drainage bag this morning, but "home health didn't seem too worried". Her daugher Carolyn has also been hospitalized. She also has been "given the green light" from Dr. Ruiz to start more ROM activity with PT, but she does not have PT coming as often as it seems they should be. She is requesting a medication for bladder spasms, she states "I had been given someth ing in the past, but I can't remember the name of the medication". O: phone call follow up A: Alert and oriented P: will message urologist for advice on bladder spasm medication. Reinforced care plan as previously established. Will reach out to [facility] regarding plan of care with home health and PT services. Called [facility] and will fax them the most recent ortho note, that patient can now be 50% flat footweight bearing. documented in this encounter Plan of Treatment Upcoming Encounters Date Type Specialty Care Team Description 04/28/2023 Office Visit Family Medicine Brian Domínguez MD [address] [place] [address] 04/29/2023 Home Visit Family Medicine Andie Lasstier, [facility] [address] [place] [address] 05/05/2023 Office Visit Cardiology Sobia Brewster PAArleen [address] [place] [address] 05/09/2023 Office Visit Gastroenterology Wendy Frias DO [address] [place] [address] 05/12/2023 Telemedicine [facility] Lashay Blevins PA-C [address] [place] [address] Beverly Lozoya, [facility] [address] [place] [address] [place] [address] 06/25/2023 Office Visit Infectious Disease Vidya Fabian MD [address] [place] [address] 07/14/2023 Office Visit Pulmonary Mary Grace Johnson MD [address] [place] [address] 08/04/2023 Office Visit Urology Alfredo Panda MD [address] [place] [id number] Scheduled Procedures Name Priority Associated Diagnoses Date/Ti [...] Additional history exists CKD PHOS USE SMARTSET 32044 10/24/202310/05, 02/18/2022, 02/17/2022, Additional history exists TSH 02/14/2024 02/13/2023, 0403/2023, 02/28/2022, Additional history exists CKD HGB USE SMARTSET 53379 02/19/202402/18, 02/11/2023, 02/07/2023, Additional history exists Colonoscopy [...] this encounter Medical Devices Implanted Type Area Locomotive Boilermaker Device Identifier Shelf Expiration Date Model / Serial / Lot Sut Steel 6 [id number] - [id number] Implanted:Qty: 1 on 02/15/2011 at [place] [facility] [place] N/A: Chest DO NOT USE 07/21/2015 [id number] / / [id number] documented as of this encounter Advance Directives Documents on File Type Date Recorded Patient Fence Builder Jose edwardarmida 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 Question Answer Comments Discussion of Advance Directives occurred with: Patient Does the patient have a Living Will? No Does the patient have Health Care Power of Laboratory Miller? No Code Status History Code Status Date [...] the patient have Health Care Power of Laboratory Miller? No Full Code 02/01/2010 4:02 PM 02/02/2010 4:09 PM This order reflects the patients wishes and were consensually agreed upon. Question Answer Comments Discussion of Advance Directives occurred with: Not Discussed Does the patient have a Living Will? No Does the patient have Health Care Power of Laboratory Miller? No Healthcare Agents on File Name Relationship Healthcare Agent [facility] p Communication Carolyn Ballard Adult Child Health Care Agent Care Teams Computer Systems Consultant Relationship Specialty Start Date End Date Brian Domínguez MD [address] [place] [address] PCP - General Family Medicine 07/16/17 documented as of this encounter
--- OUTSIDE RECORDS SUMMARY | 2023-05-17 12:07 | External Medical Summary | Summary of Care ---
Author Name Unknown Organization [facility] Address [address] [place] [address] Phone [phone] Care Team Providers Care Buck Swamper Name Role Phone Brian Domínguez MD Primary Care Provider [phone]- [phone] Reason for Visit * Reason Onset Date Comments Advice 04/25/2023 Encounter Details Date Type Department Care Team Description 04/25/2023 Telephone [facility] [place] [address] [place] [address] Lashay Blevins PA-C [address] [place] [address] Advice Allergies Active Allergy Reactions [...] Active venlafaxine XR (EFFEXOR XR) 150 MG [id number]:Dep ression Take 1 Cap by mouth daily. [...] 0 11/18/2017 Active Blood Glucose Monitoring Suppl (QlibriIO) w/Device KIT Use as directed. Use as directed. 1 Kit 0 10/31/2018 Active Spacer/Aero-Holding Chambers WISAM Use with inhaler. Wheezing/bronchitis . 1 Device 0 04/08/2019 Active Tru [employer] DelLike.fm Lancets 33G MISC USE UP TO FOUR TIMES A DAY Dx:E11.4 100 Each 5 09/30/2019 Active Lancet Devices (SocitiveTOUCH DELICA LANCING DEV) MISC Use four times [...] Respimat 2.5 MCG/ACT Inhalation Aerosol Solution (Tiotropium [place] Monohydrate) Inhale by mouth 2 Puffs in [...] 06/05/2022 Active Vitamin D (Ergocalciferol) 1.25 MG (29127 UT) Oral Capsule (Drisdol)Indication s:Vitamin D deficiency [...] 90 Tablet 1 12/19/2022 Active UltiCare Pen [place] 31G X 5 MM (Insulin Pen Needle) use TWICE DAILY 200 Each 3 12/23/2022 Active Torsemide 20 MG Oral Tablet (Demadex)Indication s:Atherosclerotic heart disease of [place] coronary artery with other forms of angina [...] bedtime 180 Tablet 3 01/16/2023 Active Nystatin 774459 UNIT/GM External Powder (Nystop)Indications :Candidal intertrigo Apply [...] long-term current use of insulin ([facility]) use to test blood sugar 3 times daily 300 Strip 3 01/16/2023 Active Nystatin 218774 UNIT/ML Mouth/Throat Suspension SWISH AND SWALLOW 5ML [...] mg daily Atherosclerotic heart diseas e of swinom[place] coronary artery with other forms of angina pectoris 11/15/2021 Last Assessment & Plan: Stable. No angina -continue toprol, ASA and statin Seasonal allergies 11/15/2021 Recurrent UTI 10/07/2021 Last Assessment & Plan: Followed by urology Pt is supposed to be on methenamine--will need to clarify with dgt that she is giving this. 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/2014 care home current use of anticoagulant therapy 1 08/18/2005 [...] Encounter - Lashay Johnston PA-C - 04/25/2023 1:34 PM EDT Received call from the patient daughter that she is worried she may be getting a UTI. Urine has been darker in color and the patient has been acting more tired. She states the urine was bad smelling a couple days ago. The last couple urine cultures were negative. She has been treated with numerous antibiotics in the past. I have concern for her developing resistance in the future. She missed her recent appointment with infectious disease. I tried to reach the patient and it went to [employer]. Ileft her a message and will try again in a bit. Urine culture ordered. documented in this encounter Plan of Treatment Upcoming Encounters Date Type Specialty Care Team Description 04/28/2023 Office Visit Family Medicine Brian Domínguez MD [address] [place] [address] 04/29/2023 Home Visit Family Medicine Andie Lassiter, [facility] Preload Supervisor [address] [place] [address] 05/05/2023 Office Visit Cardiology Sobia Brewster PA-C [address] [place] [address] 05/09/2023 Office Visit Gastroenterology Wendy Frias DO [address] [place] [address] 05/12/2023 Telemedicine [facility] Lashay Blevins PA-C [address] [place] [address] Beverly Lozoya, [facility] [address] [place] [phone] 06/25/2023 Office Visit Infectious Disease Vidya Fabian MD [address] [place] [address] 07/14/2023 Office Visit Pulmonary Mary Grace Johnson MD [address] [place] [address] 08/04/2023 Office Visit Urology Alfredo Panda MD [address] [place] [address] Scheduled Orders Name Type Priority Associated Diagnoses Orde r Schedule CULTURE, URINE, QUANTITATIVE Lab STAT Abnormal urine odor Expected: 04/25/2023, Expires: 04/25/2024 Scheduled Procedures Name Priority Associated Diagnoses Date/Ti [...] Additional history exists CKD PHOS USE SMARTSET 23508 10/24/202310/05, 02/18/2022, 02/17/2022, Additional history exists TSH 02/14/2024 02/13/2023, 10/05, 02/28/2022, Additional history exists CKD HGB USE SMARTSET 23958 02/19/202402/18, 02/11/2023, 02/07/2023, Additional history exists Colonoscopy [...] this encounter Medical Devices Implanted Type Area Harness And Bag Inspector Device Identifier Shelf Expiration Date Model / Serial / Lot Jenna Rojas 6 [id number] - [id number] Implanted:Qty: 1 on 02/15/2011 at OR [facility] [place] N/A: Chest DO NOT USE 07/21/2015 M654G / / [id number] documented as of this encounter Visit Diagnoses Diagnosis Abnormal urine odor- Primary Other nonspecific finding on examination of urine documented in this encounter Advance Directives Documents on File Type Date Recorded Patient Pole Peeler Jose luna POL 05/06/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 Question Answer Comments Discussion of Advance Directives occurred with: Patient Does the patient have a Living Will? No Does the patient have Health Care Power of Paper Products Supervisor? No Code Status History Code Status Date [...] the patient have Health Care Power of Paper Products Supervisor? No Full Code 02/01/2010 4:02 PM 02/02/2010 4:09 PM This order reflects the patients wishes and were consensually agreed upon. Question Answer Comments Discussion of Advance Directives occurred with: Not Discussed Does the patient have a Living Will? No Does the patient have Health Care Power of Paper Products Supervisor? No Healthcare Agents on File Name Relationship [facility] Communication Carolyn Goldmandrewnabila Adult Child Health Care Agent Care Teams Buck Swamper Relationship Specialty Start Date End Date Brian Domínguez MD [address] [place] [address] PCP - General Family Medicine 07/16/17 documented as of this encounter
--- OUTSIDE RECORDS SUMMARY | 2023-05-17 12:07 | External Medical Summary | Summary of Care ---
Author Name Unknown Organization [facility] Address [address] [place] [address] Phone [phone] Care Team Providers Care Watch Case Polisher Name Role Phone Brian Domínguez MD Primary Care Provider [phone] Reason for Visit * Reason Onset Date Comments Advice 04/09/2023 Lmom 04/09 Encounter Details Date Type Department Care Team Description 04/09/2023 Telephone Urology, [facility] [address] [facility] [place] [address] Alfredo Panda MD 27 [facility] [address] [place] [address] Advice (Lmom 04/09) Allergies Active Allergy Reactions Severity Noted Date [...] Active venlafaxine XR (EFFEXOR XR) 150 MG [id number]:Dep ression Take 1 Cap by mouth daily. [...] 0 11/18/2017 Active Blood Glucose Monitoring Suppl ([employer] VERIO) w/Device KIT Use as directed. Use as directed. 1 Kit 0 10/31/2018 Active Spacer/Aero-Holding Chambers WISAM Use with inhaler. Wheezing/bronchitis . 1 Device 0 04/08/2019 Active [employer] DelRotoPop Lancets 33G MISC USE UP TO FOUR TIMES A DAY Dx:E11.4 100 Each 5 09/30/2019 Active Lancet Devices ([employer] DELICA LANCING DEV) MISC Use four times [...] Respimat 2.5 MCG/ACT Inhalation Aerosol Solution (Tiotropium [place] Monohydrate) Inhale by mouth 2 Puffs in [...] 06/05/2022 Active Vitamin D (Ergocalciferol) 1.25 MG (42913 UT) Oral Capsule (Drisdol)Indication s:Vitamin D deficiency [...] 90 Tablet 1 12/19/2022 Active UltiCare Pen [place] 31G X 5 MM (Insulin Pen Needle) use TWICE DAILY 200 Each 3 12/23/2022 Active Torsemide 20 MG Oral Tablet (Demadex)Indication s:Atherosclerotic heart disease of [place] coronary artery with other forms of angina [...] bedtime 180 Tablet 3 01/16/2023 Active Nystatin 645410 UNIT/GM External Powder (Nystop)Indications :Candidal intertrigo Apply [...] daily 300 Strip 3 01/16/2023 Active Nystatin 169180 UNIT/ML Mouth/Throat Suspension SWISH AND SWALLOW 5ML [...] BEFORE BEDTIME 60 Tablet 0 04/08/2023 Active documented as of this encounter (statuses [...] mg daily Atherosclerotic heart diseas e of [place] coronary artery with other forms of angina pectoris 11/15/2021 Last Assessment & Plan: Stable. No angina -continue toprol, ASA and statin Seasonal allergies 11/15/2021 Recurrent UTI 10/07/2021 Last Assessment & Plan: Followed by urology Pt is supposed to be on methenamine--will need to clarify with dgt that she is giving this. 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/2014 buttermaker continuous churn current use of anticoagulant therapy 1 08/18/2005 [...] and older)(Boostrix) 06/27/2015 Varicella Zoster Vaccine (Adult) 08/09/2016,110 03/2016 documented as of this encounter Social [...] Telephone Encounter - Nayla Bellamy RN - 04/09/2023 2:55 PM EDT Spoke with patients daughter Hali Leon [facility] has been changing the catheter. It was most recently changed yesterday on 04.08.23. (Daughter does report it had been leaking, prior to being changed, she will report if any further issues with new catheter, she wonders if it needs to be a larger size, she will reach out with any further concerns.) * Telephone Encounter - Hue Coates LPN - 04/09/2023 12:51 PM EDT Left msg on pt's voicemail requesting she return call to office for further details. Has catheter been changed monthly since it was placed? Who is changing it? * Telephone Encounter - DENG Cameron - 04/09/2023 8:33 AM EDT Pt states she wants Dr Panda to know she has had a catheter since January when she broke her femur. documented in this encounter Plan of Treatment Upcoming Encounters Date Type Specialty Care Team Description 04/28/2023 Office Visit Family Medicine Brian Domínguez MD [address] [place] [address] 04/29/2023 Home Visit Family Medicine Andie Lassiter, [facility] Product Specialist [address] [place] [address] 05/05/2023 Office Visit Cardiology Sobia Brewster PA-C [address] [place] [address] 05/09/2023 Office Visit Gastroenterology Wendy Frias DO [address] [place] [address] 05/12/2023 Telemedicine [facility] Lashay Blevins PA-C [address] [place] [address] Beverly Lozoya, [address] [place] [address] 06/25/2023 Office Visit Infectious Disease Vidya Fabian MD [address] [place] [address] 07/14/2023 Office Visit Pulmonary Mary Grace Johnson MD [address] [place] [address] 08/04/2023 Office Visit Urology Alfredo Panda MD 27 [facility] [address] [place] [address] Scheduled Procedures Name Priority Associated Diagnoses [...] Additional history exists CKD PHOS USE SMARTSET 96022 10/24/202310/05, 02/18/2022, 02/17/2022, Additional history exists TSH 02/14/2024 02/13/2023, 10/05, 02/28/2022, Additional history exists CKD HGB USE SMARTSET 07943 02/19/202402/18, 02/11/2023, 02/07/2023, Additional history exists Colonoscopy [...] this encounter Medical Devices Implanted Type Area Byproducts Extractor Device Identifier Shelf Expiration Date Model / Serial / Lot Sut Bob 6 [id number] - [id number] Implanted:Qty: 1 on 02/15/2011 at [place] [facility] [place]: Chest DO NOT USE 07/21/2015 [id number] / / [id number] documented as of this encounter Advance Directives Documents on File Type Date Recorded Patient Organ Pipe Maker Metal Expl anation POLST 05/06/2018 POLST Latest Code [...] patient have Health Care Power of Manager Demand? No Code Status History Code Status Date [...] patient have Health Care Power of Manager Demand? No Full Code 02/01/2010 4:02 PM 02/02/2010 4:09 PM This order reflects the patients wishes and were consensually agreed upon. Question Answer Comments Discussion of Advance Directives occurred with: Not Discussed Does the patient have a Living Will? No Does the patient have Health Care Power of Manager Demand? No Healthcare Agents on File Name Relationship Healthcare Agent [facility] Communication Carolyn Goldmangerard Adult Child Health Care Agent Care Teams Watch Case Polisher Relationship Specialty Start Date End Date Brian Domínguez MD [address] [place], [place] [id number] PCP - General Family Medicine 07/16/17 documented as of this encounter
--- OUTSIDE RECORDS SUMMARY | 2023-05-17 12:07 | External Medical Summary | Summary of Care ---
Author Name Unknown Organization [facility] Address [address] [place] [address] Phone [phone] Care Team Providers Care Rhinologist Name Role Phone Brian Domínguez MD Primary Care Provider [phone]- [phone] Reason for Visit * Reason Onset Date Comments Order Request 04/17/2023 Encounter Details Date Type Department Care Team Description 04/17/2023 Telephone [facility] [address] [place] [address] Brian Domínguez MD [address] [place] [address] Order Request Allergies Active Allergy Reactions Severity Noted Date [...] Active venlafaxine XR (EFFEXOR XR) 150 MG KR50Nosynbladgp:Dep ression Take 1 Cap by mouth daily. With food. 30 Cap 5 09/02/2016 Active Additional Information Patient taking differently: 225 mgOral Daily(AM),Taking a total of 225 mg, Indications: Takes 225 mg total every morning with food (150 mg tab + 75 mg tab), Reported on 03/03/2023 Blood Glucose Monitoring Suppl ([employer] GLUCOMETER) w/Device KITIndications:Unco ntrolled type 2 diabetes mellitus without complication, without long-term current use of insulin Use as directed. Use as directed once daily 1 Kit 0 11/18/2017 Active Blood Glucose Monitoring Suppl ([employer]) w/Device KIT Use as directed. Use as directed. 1 Kit 0 10/31/2018 Active Spacer/Aero-Holding Chambers WISAM Use with inhaler. Wheezing/bronchitis . 1 Device 0 04/08/2019 Active [employer] DelASSURED PHARMACY Lancets 33G MISC USE UP TO FOUR TIMES A DAY Dx:E11.4 100 Each 5 09/30/2019 Active Lancet Devices (Open Mobile SolutionsTOUCH DELICA LANCING DEV) MISC Use four times [...] Respimat 2.5 MCG/ACT Inhalation Aerosol Solution (Tiotropium [place] Monohydrate) Inhale by mouth 2 Puffs in [...] 06/05/2022 Active Vitamin D (Ergocalciferol) 1.25 MG (55215 UT) Oral Capsule (Drisdol)Indication s:Vitamin D deficiency [...] 90 Tablet 1 12/19/2022 Active UltiCare Pen [place] 31G X 5 MM (Insulin Pen Needle) use TWICE DAILY 200 Each 3 12/23/2022 Active Torsemide 20 MG Oral Tablet (Demadex)Indication s:Atherosclerotic heart disease of [place] coronary artery with other forms of angina [...] bedtime 180 Tablet 3 01/16/2023 Active Nystatin 712863 UNIT/GM External Powder (Nystop)Indications :Candidal intertrigo Apply [...] neuropathy, with long-term current use of insulin ([facility]) use to test blood sugar 3 times daily 300 Strip 3 01/16/2023 Active Nystatin 008522 UNIT/ML Mouth/Throat Suspension SWISH AND SWALLOW 5ML [...] TWICE DAILY 60 Capsule 5 02/10/2023 Active Oxybutynin Chloride ER 10 MG Oral Tablet Extended Release 24 Hour (Ditropan XL) TAKE 1 TABLET BY MOUTH EVERY MORNING 90 Tablet 0 02/13/2023 Active Additional Information Patient taking differently: Taking [...] EVERY MORNING 90 Capsule 0 04/11/2023 Active documented as of this encounter (statuses [...] mg daily Atherosclerotic heart diseas e of [place] coronary artery with other forms of angina pectoris 11/15/2021 Last Assessment & Plan: Stable. No angina -continue toprol, ASA and statin Seasonal allergies 11/15/2021 Recurrent UTI 10/07/2021 Last Assessment & Plan: Followed by urology Pt is supposed to be on methenamine--will need to clarify with dgt that she is giving this. 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 oPrtillo 04/10. HTN, goal below 130/80 08/02/2009 2 [...] Protocol #2. 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/2014 intermediate card tender current use of anticoagulant therapy 1 08/18/2005 [...] encounter Miscellaneous Notes * Telephone Encounter - RENATE Schwarz - 04/18/2023 2:19 PM EDT Please see encounter from 04/14. Order was placed by urology. * Telephone Encounter - DENG Schmidt - 04/17/2023 11:23 AM EDT Yina requesting a an order for a n 18 setswana catheter due to leakage. Please fax to [phone] documented in this encounter Plan of Treatment Upcoming Encounters Date Type Specialty Care Team Description 04/23/2023 Office Visit Infectious Disease Kendall Bell, DO [address] [place] [address] 04/28/2023 Office Visit Family Medicine Brian Domínguez MD [address] [place] [address] 05/05/2023 Office Visit Cardiology Sobia Brewster PA-C [address] [place] [address] 05/09/2023 Office Visit Gastroenterology Wendy Frias DO [address] [place] [address] 05/12/2023 Telemedicine [facility] Lashay Blevins PA-C [address] [place] [address] Beverly Lozoya, [address] [place] [phone] 07/14/2023 Office Visit Pulmonary Mary Grace Johnson MD [address] [facility] [place] [address] 08/04/2023 Office Visit Urology Alfredo Panda MD [address] [place] [address] Scheduled Procedures Name Priority Associated Diagnoses Date/Ti [...] Additional history exists CKD PHOS USE SMARTSET 88115 10/24/202310/05, 02/18/2022, 02/17/2022, Additional history exists TSH 02/14/2024 02/13/2023, 10/05, 02/28/2022, Additional history exists CKD HGB USE SMARTSET 49729 02/19/202402/18, 02/11/2023, 02/07/2023, Additional history exists Colonoscopy [...] this encounter Medical Devices Implanted Type Area Cement Gun Operator Device Identifier Shelf Expiration Date Model / Serial / Lot Sut Steel 6 M654g - [id number] Implanted:Qty: 1 on 02/15/2011 at [place] [facility] [place] N/A: Chest DO NOT USE 07/21/2015 [id number] / / [id number] documented as of this encounter Advance Directives Documents on File Type Date Recorded Patient Tray Checker 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 Question Answer Comments Discussion of Advance Directives occurred with: Patient Does the patient have a Living Will? No Does the patient have Health Care Power of Senior Electronics Engineer? No Code Status History Code Status Date [...] the patient have Health Care Power of Senior Electronics Engineer? No Full Code 02/01/2010 4:02 PM 02/02/2010 4:09 PM This order reflects the patients wishes and were consensually agreed upon. Question Answer Comments Discussion of Advance Directives occurred with: Not Discussed Does the patient have a Living Will? No Does the patient have Health Care Power of Senior Electronics Engineer? No Healthcare Agents on File Name Relationship Healthcare Agent [facility] Communication Carolyn Goldmandrewnabila Adult Child Health Care Agent Care Teams Rhinologist Relationship Specialty Start Date End Date Brian Domínguez MD [address] [place] [address] PCP - General Family Medicine 07/16/17 documented as of this encounter
--- OUTSIDE RECORDS SUMMARY | 2023-05-17 12:07 | External Medical Summary | Summary of Care ---
Author Name Unknown Organization [facility] Address [address] [place] [address] Phone [phone] Care Team Providers Care Wet Process Technician Name Role Phone Brian Domínguez MD Primary Care Provider [phone]- [phone] Reason for Visit * Reason Onset Date Comments Home Health 04/17/2023 Encounter Details Date Type Department Care Team Description 04/17/2023 Telephone [facility] [address] [place] [address] Brian Domínguez MD [address] [place] [address] Home Health Allergies Active Allergy Reactions Severity Noted Date [...] Active venlafaxine XR (EFFEXOR XR) 150 MG QW26Ngnirvjelym:Dep ression Take 1 Cap by mouth daily. With food. 30 Cap 5 09/02/2016 Active Additional Information Patient taking differently: 225 mgOral Daily(AM),Taking a total of 225 mg, Indications: Takes 225 mg total every morning with food (150 mg tab + 75 mg tab), Reported on 03/03/2023 Blood Glucose Monitoring Suppl ([employer]ocks[employer] GLUCOMETER) w/Device KITIndications:Unco ntrolled type 2 diabetes mellitus without complication, without long-term current use of insulin Use as directed. Use as directed once daily 1 Kit 0 11/18/2017 Active Blood Glucose Monitoring Suppl (Enlivex TherapeuticsIO) w/Device KIT Use as directed. Use as directed. 1 Kit 0 10/31/2018 Active Spacer/Aero-Holding Chambers WISAM Use with inhaler. Wheezing/bronchitis . 1 Device 0 04/08/2019 Active [employer] Delshopkick Lancets 33G MISC USE UP TO FOUR TIMES A DAY Dx:E11.4 100 Each 5 09/30/2019 Active Lancet Devices (SemantriaTOUCH DELICA LANCING DEV) MISC Use four times [...] Respimat 2.5 MCG/ACT Inhalation Aerosol Solution (Tiotropium [place] Monohydrate) Inhale by mouth 2 Puffs in [...] 06/05/2022 Active Vitamin D (Ergocalciferol) 1.25 MG (85100 UT) Oral Capsule (Drisdol)Indication s:Vitamin D deficiency [...] 90 Tablet 1 12/19/2022 Active UltiCare Pen [place] 31G X 5 MM (Insulin Pen Needle) use TWICE DAILY 200 Each 3 12/23/2022 Active Torsemide 20 MG Oral Tablet (Demadex)Indication s:Atherosclerotic heart disease of [place] coronary artery with other forms of angina [...] bedtime 180 Tablet 3 01/16/2023 Active Nystatin 204570 UNIT/GM External Powder (Nystop)Indications :Candidal intertrigo Apply [...] with long-term current use of insulin ([facility]) use to test blood sugar 3 times daily 300 Strip 3 01/16/2023 Active Nystatin 058559 UNIT/ML Mouth/Throat Suspension SWISH AND SWALLOW 5ML [...] EVERY MORNING 90 Capsule 0 04/11/2023 Active Metoprolol Succinate ER 25 MG Oral Tablet Extended Release 24 Hour (toPROL XL)Indications:HTN, goal below 130/80 TAKE ONE TABLET BY MOUTH EVERY MORNING 90 Tablet 3 04/17/2023 Active documented as of this encounter (statuses [...] mg daily Atherosclerotic heart diseas e of [place] coronary artery with other forms of angina pectoris 11/15/2021 Last Assessment & Plan: Stable. No angina -continue toprol, ASA and statin Seasonal allergies 11/15/2021 Recurrent UTI 10/07/2021 Last Assessment & Plan: Followed by urology Pt is supposed to be on methenamine--will need to clarify with dgt that she is giving this. 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 * Telephone Encounter - Brian Domínguez MD - 04/17/2023 5:19 PM EDT Pt sees urology. As in previous message, I suggest that catheter decisions be made by urology. * Telephone Encounter - Savana Tucker LPN - 04/17/2023 2:21 PM EDT Kathrin calling from [employer]. Currently patient has 16 niuean 10 cc mejia catheter. Kathrin is asking for an order to see if it can be increased to 18 niuean with a 10 or 30 cc balloon. It is constantly leaking. The catheter has been changed 03/25, 04/05, 04/14 and 04/16 Fax is [phone] Please advise. documented in this encounter Plan of Treatment Upcoming Encounters Date Type Specialty Care Team Description 04/23/2023 Office Visit Infectious Disease Kendall Bell, DO [address] [place] [address] 04/28/2023 Office Visit Family Medicine Brian Domínguez MD [address] [place], [place] [phone] 05/05/2023 Office Visit Cardiology Sobia Brewster PA-C [address] [place] [address] 05/09/2023 Office Visit Gastroenterology Wendy Frias, [address] [place] [address] 05/12/2023 Telemedicine [facility] Lashay Blevins PA-Peter [address] [place] [address] Beverly Lozoya, [address] [place] [address] 07/14/2023 Office Visit Pulmonary Mary Grace Johnson MD [address] [place] [address] 08/04/2023 Office Visit Urology Alfredo Panda MD [address] [place] [address] Scheduled Procedures Name Priority Associated Diagnoses Date/Ti [...] Additional history exists CKD PHOS USE SMARTSET 54837 10/24/202310/05, 02/18/2022, 02/17/2022, Additional history exists TSH 02/14/2024 02/13/2023, 10/05, 02/28/2022, Additional history exists CKD HGB USE SMARTSET 90427 02/19/202402/18, 02/11/2023, 02/07/2023, Additional history exists Colonoscopy [...] this encounter Medical Devices Implanted Type Area Civil Engineering Design Draftsperson Device Identifier Shelf Expiration Date Model / Serial / Lot Jenna Rojas 6 [id number] - [id number] Implanted:Qty: 1 on 02/15/2011 at [place] [facility] [place] N/A: Chest DO NOT USE 07/21/2015 [id number] / / [id number] documented as of this encounter Advance Directives Documents on File Type Date Recorded Patient Security Intern 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 Question Answer Comments Discussion of Advance Directives occurred with: Patient Does the patient have a Living Will? No Does the patient have Health Care Power of Hot Water Heater Installer? No Code Status History Code Status Date [...] the patient have Health Care Power of Hot Water Heater Installer? No Full Code 02/01/2010 4:02 PM 02/02/2010 4:09 PM This order reflects the patients wishes and were consensually agreed upon. Question Answer Comments Discussion of Advance Directives occurred with: Not Discussed Does the patient have a Living Will? No Does the patient have Health Care Power of Hot Water Heater Installer? No Healthcare Agents on File Name Relationship Healthcare Agent [facility] Communication Carolyn Goldmandrewnabila Adult Child Health Care Agent Care Teams Wet Process Technician Relationship Specialty Start Date End Date Brian Domínguez MD [address] [place] [address] PCP - General Family Medicine 07/16/17 documented as of this encounter
--- OUTSIDE RECORDS SUMMARY | 2023-05-17 12:07 | External Medical Summary | Summary of Care ---
Author Name Unknown Organization [facility] Address [address] [place] [address] Phone [phone] Care Team Providers Care Senior Consumer Insights Consultant Name Role Phone Brian Domínguez MD Primary Care Provider [phone]- [phone] Reason for Visit * Reason Comments eRx-Medication Refill Encounter Details Date Type Department Care Team Description 04/21/2023 Refill [facility] [address] [place] [address] Brian Domínguez MD [address] [place] [address] Allergies Active Allergy Reactions Severity Noted Date Comments Propoxyphene Hcl Rash Low 10/29/2010 Fentanyl Diarrhea Low 04/26/2010 anxiety Methocarbamol Medium 10/05/2020 Other reaction(s): Delirium Methocarbamol Low 04/15/2007 Zolpidem Low 10/05/2020 Other reaction(s): Confusion documented as of this encounter (statuses as of 04/22/2023) Medications Medication Sig Dispensed Refills Start Date End Date Status ARIPiprazole (ABILIFY) 2 MG Tablet Take 1 Tablet by mouth in the morning. 0 2015 Active venlafaxine XR (EFFEXOR XR) 150 MG [id number]:Dep ression Take 1 Cap by mouth daily. With food. 30 Cap 5 09/02/2016 Active Additional Information Patient taking differently: 225 mgOral Daily(AM),Taking a total of 225 mg, Indications: Takes 225 mg total every morning with food (150 mg tab + 75 mg tab), Reported on 03/03/2023 Blood Glucose Monitoring Suppl (Condition One-Eyewitness Surveillance GLUCOMETER) w/Device KITIndications:Unco ntrolled type 2 diabetes mellitus without complication, without long-term current use of insulin Use as directed. Use as directed once daily 1 Kit 0 11/18/2017 Active Blood Glucose Monitoring Suppl (IllumitexIO) w/Device KIT Use as directed. Use as directed. 1 Kit 0 10/31/2018 Active Spacer/Aero-Holding Chambers WISAM Use with inhaler. Wheezing/bronchitis . 1 Device 0 04/08/2019 Active Red Guru DelXigen Lancets 33G MISC USE UP TO FOUR TIMES A DAY Dx:E11.4 100 Each 5 09/30/2019 Active Lancet Devices (TecturaUCH DELICA LANCING DEV) MISC Use four times [...] Respimat 2.5 MCG/ACT Inhalation Aerosol Solution (Tiotropium [place] Monohydrate) Inhale by mouth 2 Puffs in [...] 06/05/2022 Active Vitamin D (Ergocalciferol) 1.25 MG (84233 UT) Oral Capsule (Drisdol)Indication s:Vitamin D deficiency [...] 90 Tablet 1 12/19/2022 Active UltiCare Pen [place] 31G X 5 MM (Insulin Pen Needle) use TWICE DAILY 200 Each 3 12/23/2022 Active Torsemide 20 MG Oral Tablet (Demadex)Indication s:Atherosclerotic heart disease of squaxin coronary artery with [...] bedtime 180 Tablet 3 01/16/2023 Active Nystatin 575746 UNIT/GM External Powder (Nystop)Indications :Candidal intertrigo Apply [...] daily 300 Strip 3 01/16/2023 Active Nystatin 522167 UNIT/ML Mouth/Throat Suspension SWISH AND SWALLOW 5ML [...] daily as needed for constipation 510 g 03/20/2023 Active metFORMIN HCl ER 500 MG [...] as of this encounter (statuses as of 04/22/2023) Active Problems Problem Noted Date Medical home [...] is giving this. 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 do not cut, crush or chew.Refused By: Georgina SALEEM for Refusal: Duplicate Request documented in this encounter Plan of Treatment Upcoming Encounters Date Type Specialty Care Team Description 04/23/2023 Office Visit Infectious Disease Kendall Bell, [address] [place] [address] 04/28/2023 Office Visit Family Medicine Brian Domínguez MD [address] [place] [address] 05/05/2023 Office Visit Cardiology Sobia Brewster PA-C [address] [place] [address] 05/09/2023 Office Visit Gastroenterology Wendy Frias DO [address] [place] [address] 05/12/2023 Telemedicine [facility] Lashay Blevins PA-C [address] [place] [address] Beverly Lozoya, [facility] Medical Support Assistant [address] [place] [address] [place] [address] 07/14/2023 Office Visit Pulmonary Mary Grace Johnson MD [address] [place] [address] 08/04/2023 Office Visit Urology Alfredo Panda MD [address] [facility] [place] [address] Scheduled Procedures Name Priority Associated [...] Additional history exists CKD PHOS USE SMARTSET 11936 10/24/202310/05, 02/18/2022, 02/17/2022, Additional history exists TSH 02/14/2024 02/13/2023, 10/05, 02/28/2022, Additional history exists CKD HGB USE SMARTSET 54793 02/19/202402/18, 02/11/2023, 02/07/2023, Additional history exists Colonoscopy [...] this encounter Medical Devices Implanted Type Area Veterinary X Ray Operator Device Identifier Shelf Expiration Date Model / Serial / Lot Jenna Rojas 6 [id number] - [id number] Implanted:Qty: 1 on 02/15/2011 at OR [facility] [place] N/A: Chest DO NOT USE 07/21/2015 [id number] / / [id number] documented as of this encounter Advance Directives Documents on File Type Date Recorded Patient Ship Cleaner 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 Question Answer Comments Discussion of Advance Directives occurred with: Patient Does the patient have a Living Will? No Does the patient have Health Care Power of Engineering Patternmaker? No Code Status History Code Status Date [...] the patient have Health Care Power of Engineering Patternmaker? No Full Code 02/01/2010 4:02 PM 02/02/2010 4:09 PM This order reflects the patients wishes and were consensually agreed upon. Question Answer Comments Discussion of Advance Directives occurred with: Not Discussed Does the patient have a Living Will? No Does the patient have Health Care Power of Engineering Patternmaker? No Healthcare Agents on File Name Relationship Healthcare Agent [facility] Communication Carolyn Ballard Adult Child Health Care Agent Care Teams Senior Consumer Insights Consultant Relationship Specialty Start Date End Date Brian Domínguez MD [address] [place] [address] PCP - General Family Medicine 07/16/17 documented as of this encounter
--- OUTSIDE RECORDS SUMMARY | 2023-05-17 12:08 | External Medical Summary | Summary of Care ---
Author Name Unknown Organization [facility] Address [address] [place] [address] Phone [phone] Care Team Providers Care Laborer Petroleum Refinery Name Role Phone Brian Domínguez MD Primary Care Provider [phone]- [phone] Reason for Visit * Reason Comments eRx-Medication Refill Encounter Details Date Type Department Care Team Description 04/17/2023 Refill [facility] [address] [place] [address] Esther Bernard PA-C [address] [place] [address] Gastroesophageal reflux disease with esophagitis without hemorrhage Allergies Active Allergy Reactions Severity Noted Date Comments Propoxyphene Hcl Rash Low 10/29/2010 Fentanyl Diarrhea Low 04/26/2010 anxiety Methocarbamol Medium 10/05/2020 Other reaction(s): Delirium Methocarbamol Low 04/15/2007 Zolpidem Low 10/05/2020 Other reaction(s): Confusion documented as of this encounter (statuses as of 04/17/2023) Medications Medication Sig Dispensed Refills Start Date End Date Status ARIPiprazole (ABILIFY) 2 MG Tablet Take 1 Tablet by mouth in the morning. 0 07/11/19 16 Active venlafaxine XR (EFFEXOR XR) 150 MG [id number]:De pression Take 1 Cap by mouth daily. With food. 30 Cap 5 09/02/19 17 Active Additional Information Patient taking differently: 225 mgOral Daily(AM),Taking a total of 225 mg, Indications: Takes 225 mg total every morning with food (150 mg tab + 75 mg tab), Reported on 03/03/2023 Blood Glucose Monitoring Suppl (Mobile Armor-MirageWorks GLUCOMETER) w/Device KITIndications:Unc ontrolled type 2 diabetes mellitus without complication, without long-term current use of insulin Use as directed. Use as directed once daily 1 Kit 0 11/19/19 18 Active Blood Glucose Monitoring Suppl (Next HealthIO) w/Device KIT Use as directed. Use as directed. 1 Kit 0 11/01/19 19 Active Spacer/Aero-Holdin g Chambers WISAM Use with inhaler. Wheezing/bronchiti s. 1 Device 0 04/08/20 19 Active [employer] Delica Lancets 33G MISC USE UP TO FOUR TIMES A DAY Dx:E11.4 100 Each 5 09/30/19 20 Active Lancet Devices (eelusion DELICA LANCING DEV) MISC Use four times [...] Respimat 2.5 MCG/ACT Inhalation Aerosol Solution (Tiotropium [place] Monohydrate) Inhale by mouth 2 Puffs in [...] 22 Active Vitamin D (Ergocalciferol) 1.25 MG (28804 UT) Oral Capsule (Drisdol)Indicatio ns:Vitamin D deficiency [...] NEEDED FOR ABDOMINAL PAIN 120 Capsule 3 12/09/19 23 Active Ondansetron HCl 8 MG [...] Tablet 1 12/20/19 23 Active UltiCare Pen [place] 31G X 5 MM (Insulin Pen Needle) use TWICE DAILY 200 Each 3 12/24/19 23 Active Torsemide 20 MG Oral Tablet (Demadex)Indicatio ns: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 MAY TAKE 1 ADDITIONAL TABLET NEEDED FOR SWELLING. 90 Tablet 1 12/25/19 Active Spironolactone 50 MG Oral Tablet (Aldactone)Indicat ions:GONZALEZ (nonalcoholic steatohepatitis),P ortal hypertension (HCC),Chronic liver disease and cirrhosis,Portal hypertensive gastropathy Take 1 tablet by mouth in the morning and before bedtime 180 Tablet 3 01/17/20 23 Active Nystatin 623667 UNIT/GM External Powder (Nystop)Indication s:Candidal intertrigo Apply [...] neuropathy, with long-term current use of insulin ([facility]) use to test blood sugar 3 times daily 300 Strip 01/17/20 Active Nystatin 077020 UNIT/ML Mouth/Throat Suspension SWISH AND SWALLOW 5ML IN THE MORNING AND 5ML AT NOON AND 5 ML IN THE EVENING AND 5ML BEFORE BEDTIME, FOR THRUSH 240 mL 01/29/20 Active oxyCODONE HCl 5 MG Oral Tablet [...] Active Benzonatate 100 MG Oral Capsule (Tessalon [place]) TAKE ONE CAPSULE BY MOUTH THREE TIMES [...] BY MOUTH EVERY MORNING 90 Tablet 3 10/12/20 23 Active Famotidine 40 MG Oral Tablet (Pepcid)Indication s:Gastroesophageal reflux disease with esophagitis without hemorrhage Take 1 Tablet by mouth in the morning. 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 No angina -continue toprol, ASA and statin Seasonal allergies 11/15/2021 Recurrent UTI 10/07/2021 Last Assessment & Plan: Followed by urology Pt is supposed to be on methenamine--will need to clarify with dgt that she is giving this. 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/2014 [facility] current use of anticoagulant therapy 1 08/18/2005 [...] as of this encounter (statuses as of 04/17/2023) Immunizations Name Administration Dates Next Due COVID-19 [...] encounter Miscellaneous Notes * Telephone Encounter - Samantha Melvin RPh - 04/17/2023 8:53 PM EDTSigned Prescriptions: Disp Refills Famotidine 40 MG Oral Tablet (Pepcid) 90 Tab*0 Sig: TAKE 1 TABLET BY MOUTH EVERY MORNINGAuthorizing Provider: ESTHER BERNARD AOroleg User: SAMANTHA MELVIN documented in this encounter Plan of Treatment Upcoming Encounters Date Type Specialty Care Team Description 04/23/2023 Office Visit Infectious Disease Kendall Bell, DO [address] [place] [address] 04/28/2023 Office Visit Family Medicine Brian Domínguez MD [address] [place], [place] [id number] 05/05/2023 Office Visit [facility]iology [facility]ster [facility] [address] [facility] [address] 05/09/2023 Office Visit Gastroenterology Wendy Frias, DO [address] [place] [address] 05/12/2023 Telemedicine [facility] Lashay Blevins PA-C [address] [place] [address] Beverly Lozoya, [address] [place] [address] 07/14/2023 Office Visit Pulmonary Mary Grace Johnson MD [address] [place] [address] 08/04/2023 Office Visit Urology Alfredo Panda MD [address] [place] [id number] Scheduled Procedures Name Priority Associated Diagnoses Date/Ti [...] , 12/23/2012, Additional history exists COVID-19 Vaccine (2022- season) 2023 06/10/2021, 08/29/2020, 08/01/2020 Influenza Vaccine (FLU shot) (#1) 2023 03/14/2022, 03/14/2022, 04/10/2021, Additional history exists HbA1c 04/24/2023 10/23/2022, 04/07, 11/01/2021, Additional history exists GFR 08/21/2023 02/18/2023, 08/02/2023, 02/07/2023, Additional history exists Albumin/Creatinine Ratio 10/24/2023 023, 07/17/2022, 10/05/2020, Additional history exists CKD PHOS USE SMARTSET 65850 10/24/202310/05, 02/18/2022, 02/17/2022, Additional history exists TSH 02/14/2024 02/13/2023, 10/05, 02/28/2022, Additional history exists CKD HGB USE SMARTSET 70990 02/19/202402/18, 02/11/2023, 02/07/2023, Additional history exists Colonoscopy [...] this encounter Medical Devices Implanted Type Area Dispatcher Radio Device Identifier Shelf Expiration Date Model / Serial / Lot Jenna Rojas 6 [id number] - [id number] Implanted:Q[place] 1 on 02[place]15[place]2011 [place] [facility] [place]: Chest DO NOT USE 07/21/2015 [id number] / / [id number] documented as of this encounter Visit Diagnoses Diagnosis Gastroesophageal reflux disease with esophagitis without hemorrhage documented in this encounter Advance Directives Documents on File Type Date Recorded 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 Question Answer Comments Discussion of Advance Directives occurred with: Patient Does the patient have a Living Will? No Does the patient have Health Care Power of Finance Director? No Code Status History Code Status Date [...] the patient have Health Care Power of Finance Director? No Full Code 02/01/2010 4:02 PM 02/02/2010 4:09 PM This order reflects the patients wishes and were consensually agreed upon. Question Answer Comments Discussion of Advance Directives occurred with: Not Discussed Does the patient have a Living Will? No Does the patient have Health Care Power of Finance Director? No Healthcare Agents on File Name Relationship Healthcare Agent [facility] Communication Carolyn Goldmandrewnabila Adult Child Health Care Agent Care Teams Laborer Petroleum Refinery Relationship Specialty Start Date End Date Brian Domínguez MD [address] [place] [address] PCP - General Family Medicine 07/16/17 documented as of this encounter
--- OUTSIDE RECORDS SUMMARY | 2023-05-17 12:08 | External Medical Summary | Summary of Care ---
Author Name Unknown Organization [facility] Address [address] [place] [address] Phone [phone] Care Team Providers Care Portable Track Crew Chief Name Role Phone Carmen Sifuentes MD Primary Care Provider [phone]- [phone] Reason for Visit * Reason Comments eRx-Medication Refill Encounter Details Date Type Department Care Team Description 04/08/2023 Refill [facility] [address] [place] [address] Carmen Sifuentes MD [address] [place] [address] Allergies Active Allergy Reactions Severity Noted Date Comments Propoxyphene Hcl Rash Low 10/29/2010 Fentanyl Diarrhea Low 04/26/2010 anxiety Methocarbamol Medium 10/05/2020 Other reaction(s): Delirium Methocarbamol Low 04/15/2007 Zolpidem Low 10/05/2020 Other reaction(s): Confusion documented as of this encounter (statuses as of 04/10/2023) Medications Medication Sig Dispensed Refills Start Date End Date Status ARIPiprazole (ABILIFY) 2 MG Tablet Take 1 Tablet by mouth in the morning. 0 07/11/19 16 Active venlafaxine XR (EFFEXOR XR) 150 MG [id number]:De pression Take 1 Cap by mouth daily. With food. 30 Cap 5 09/02/19 17 Active Additional Information Patient taking differently: 225 mgOral Daily(AM),Taking a total of 225 mg, Indications: Takes 225 mg total every morning with food (150 mg tab + 75 mg tab), Reported on 03/03/2023 Blood Glucose Monitoring Suppl ([employer] Carlife Assist GLUCOMETER) w/Device KITIndications:Unc ontrolled type 2 diabetes mellitus without complication, without long-term current use of insulin Use as directed. Use as directed once daily 1 Kit 0 11/19/19 18 Active Blood Glucose Monitoring Suppl ([employer]) w/Device KIT Use as directed. Use as directed. 1 Kit 0 11/01/19 19 Active Spacer/Aero-Holdin g Chambers WISAM Use with inhaler. Wheezing/bronchiti s. 1 Device 0 04/08/20 19 Active Equity Administration SolutionsTouch Delica Lancets 33G MISC USE UP TO FOUR TIMES A DAY Dx:E11.4 100 Each 5 09/30/19 20 Active Lancet Devices (UltraWood Products CompanyTOUCH DELICA LANCING DEV) MISC Use four times [...] mouth every morning. 30 Tablet 5 03/12/20 Active Insulin Glargine Solostar 100 UNIT/ML Subcutaneous Solution Pen-injector (Basaglar KwikPen)Indication s:Type 2 diabetes mellitus with diabetic neuropathy, with long-term current use of insulin (HCC) Inject 30 units under the skin twice daily 45 mL 3 04/16/20 Active Additional Information Patient taking differently: 20 Units BID (0700,1900), (No instructions reported), Reported on 03/03/2023 Insulin Glargine Solostar 100 UNIT/ML Subcutaneous Solution Pen-injector (Basaglar KwikPen)Indication s:Type 2 diabetes mellitus with diabetic neuropathy, with long-term current use of insulin (HCC) Inject 30 units under the skin twice daily 45 mL 3 04/17/20 Active Additional Information Patient taking differently: 20 Units, Inject 30 units under the skin twice daily, Reported on 03/03/2023 Metoprolol Succinate ER 25 MG Oral Tablet Extended Release 24 Hour (toPROL XL) Take by mouth 1 Tablet in the morning. 90 Tablet 3 04/19/20 Active Atorvastatin Calcium 40 MG Oral Tablet (Lipitor)Indicatio ns:Dyslipidemia, goal LDL below 70 Take by mouth 1 Tablet in the morning. 90 Tablet 3 04/25/20 Active Spiriva Respimat 2.5 MCG/ACT Inhalation Aerosol Solution (Tiotropium [place] Monohydrate) Inhale by mouth 2 Puffs in the morning. 4 g 3 04/25/20 Active Estradiol 0.1 MG/GM Vaginal Cream Administer into the vagina 1 g in the morning. 42.5 g 12 05/07/20 Active Additional Information Patient not taking.Reported on 03/03/2023 Diclofenac Sodium 1 % External Gel (Voltaren) Apply topically to affected area 2 times a day. 150 g 3 06/05/20 Active Vitamin D (Ergocalciferol) 1.25 MG (00117 UT) Oral Capsule (Drisdol)Indicatio ns:Vitamin D deficiency TAKE ONE CAPSULE BY MOUTH WEEKLY 12 Capsule 3 06/19/20 Active AIRS Disposable Nebulizer Kit Use as directed 1 Kit 0 01/11/20 23 Active Ipratropium-Albute rol 0.5-2.5 (3) MG/3ML [...] once per week (Wed), Reported on 03/03/2023 Tamsulosin HCl 0.4 MG Oral Capsule (Flomax) Take 1 Capsule by mouth in the morning. Every morning.. 90 Capsule 3 09/19/19 23 Active lamoTRIgine 25 MG Oral Tablet (LaMICtal) 1 Tablet. Taking 2 at bedtime and 1 in morning 0 09/09/19 23 Active Famotidine 40 MG Oral Tablet (Pepcid)Indication s:Gastroesophageal reflux disease with esophagitis without hemorrhage Take 1 Tablet by mouth in the morning. 90 Tablet 1 10/24/19 23 Active Albuterol Sulfate HFA 108 (90 Base) MCG/ACT Inhalation Aerosol SolutionIndication s:Cough Use two puffs four times a day, as directed 18 g 3 11/08/19 23 Active Pantoprazole Sodium 40 MG Oral Tablet Delayed Release (Protonix)Indicati ons:Gastroesophage al reflux disease without esophagitis TAKE ONE TABLET BY MOUTH IN THE MORNING AND ONE TABLET IN THE EVENING 60 Tablet 5 12/08/19 23 Active Dicyclomine HCl 10 MG Oral Capsule (Bentyl)Indication s:Abdominal pain TAKE ONE CAPSULE BY MOUTH FOUR TIMES DAILY NEEDED FOR ABDOMINAL PAIN 120 Capsule 3 12/09/19 23 Active Ondansetron HCl 8 MG Oral Tablet (Zofran)Indication s:Nausea TAKE 1 TABLET BY MOUTH EVERY 8 HOURS NEEDED FOR NAUSEA 60 Tablet 5 12/10/19 23 Active Levothyroxine Sodium 88 MCG [...] Tablet 1 12/20/19 23 Active UltiCare Pen [place] 31G X 5 MM (Insulin Pen Needle) use TWICE DAILY 200 Each 3 12/24/19 23 Active Torsemide 20 MG Oral Tablet (Demadex)Indicatio ns:Atherosclerotic heart disease of [place] coronary artery with other forms of angina [...] 180 Tablet 3 01/17/20 23 Active Nystatin 920603 UNIT/GM External Powder (Nystop)Indication s:Candidal intertrigo Apply topically to affected area 3 times a day. Apply to right breast until rash resolved. 30 g 0 01/16/20 23 Active Sucralfate 1 GM Oral Tablet (Carafate)Indicati ons:Gastroesophage al reflux disease with esophagitis without hemorrhage TAKE 1 TABLET BY MOUTH EVERY MORNING 90 Tablet 0 01/18/20 23 Active OneTouch [place] In Vitro Strip (Glucose Blood)Indications: Type 2 diabetes mellitus with diabetic neuropathy, with long-term current use of insulin (HCC) use to test blood sugar 3 times daily 300 Strip 3 01/17/20 23 Active Nystatin 077740 UNIT/ML Mouth/Throat Suspension SWISH AND SWALLOW 5ML [...] Severe. 30 Tablet 0 04/07/20 23 Active Amoxicillin-Pot Clavulanate 875-125 MG Oral Tablet (Augmentin) Take 1 Tablet by mouth in the morning and 1 Tablet before bedtime. Do all this for 10 days. 20 Tablet 0 04/02/20 23 023 Active Methenamine Hippurate 1 GM Oral Tablet (Hiprex)Indication s:Recurrent UTI TAKE ONE TABLET BY MOUTH IN THE MORNING AND ONE TABLET BEFORE BEDTIME 60 Tablet 0 04/08/20 23 Active Benzonatate 100 MG Oral Capsule (Tessalon Perles) TAKE ONE CAPSULE BY MOUTH THREE TIMES DAILY NEEDED for cough. do not cut, crush or chew 50 Capsule 0 04/10/20 Active Benzonatate 100 MG Oral Capsule (Tessalon Perles) TAKE ONE CAPSULE BY MOUTH THREE TIMES DAILY NEEDED for cough. do not cut, crush or chew 50 Capsule 0 07/10/19 23 023 Discontinued documented as of this encounter (statuses as of 04/10/2023) Active Problems Problem Noted Date Medical home patient encounter 3 Hypertensive heart and kidne y disease with chronic diastolic congestive heart failure and stage 3a chronic kidney disease 12/28/2021 Last Assessment & Plan: Euvolemic, BP stable EF 55% 09/25 GFR 69 02/25 -Continue Torsemide 20 mg BID, Spironolactone 25 mg BID, Tropol XL 50 mg daily Atherosclerotic heart diseas e of [place] coronary artery with other forms of angina pectoris 11/15/2021 Last Assessment & Plan: Stable. No angina -continue toprol, ASA and statin Seasonal allergies 11/15/2021 Recurrent UTI 10/07/2021 Last Assessment & Plan: Followed by urology Pt is supposed to be on methenamine--will need to clarify with dgt that she is giving this. 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 Portillo 04/10. ELECTROLYT-FLUID DIS NEC 05/25/2004 07/18/2 014 PREMENSTRUAL TENSION 05/04/2004 11/05/2005 Type 2 diabetes mellitus wit h hemoglobin A1c goal of less than 7.0% 05/04/2004 05/04/2009 Overview: Per Diabetes Taxonomy. diet controlled, 03/07/05 hgba1c 5.4 ICD-10 update of inactive term HTN, goal below 140/90 05/04/2004 0 Overview: Per HTN Taxonomy. Carpal tunnel syndrome 12/31/2002 6 documented as of this encounter (statuses as of 04/10/2023) Immunizations Name Administration Dates Next Due COVID-19 [...] Telephone Encounter - Carmen Sifuentes MD - 04/10/2023 5:03 PM EDTSigned Prescriptions: Disp Refills Benzonatate 100 MG Oral Capsule (Tessalon *50 Cap*0 Sig: TAKE ONE CAPSULE BY MOUTH THREE TIMES DAILY NEEDED for cough. do not cut, crush or chewAuthorizing Provider: CARMEN SIFUENTES * Telephone Encounter - Guillermina Whitehead LPN - 04/10/2023 4:21 PM EDTPending Prescriptions: Disp Refills Benzonatate 100 MG Oral Capsule [Pharmacy *50 Cap*0 Sig: TAKE ONE CAPSULE BY MOUTH THREE TIMES DAILY NEEDED for cough. do not cut, crush or chew * Telephone Encounter - Interface, [facility] S[facility] Inbound - 04/10/2023 9:48 AM EDT Pending Prescriptions: Disp Refills Benzonatate 100 MG Oral Capsule [Pharmacy *50 Cap*0 Sig: TAKE ONE CAPSULE BY MOUTH THREE TIMES DAILY NEEDED for cough. do not cut, crush or chew * Telephone Encounter - Marine Braden - 04/09/2023 4:27 PM EDTPending Prescriptions: Disp Refills Benzonatate 100 MG Oral Capsule [Pharmacy *50 Cap*0 Sig: TAKE ONE CAPSULE BY MOUTH THREE TIMES DAILY NEEDED for cough. do not cut, crush or chew documented in this encounter Plan of Treatment Upcoming Encounters Date Type Specialty Care Team Description 04/23/2023 Office Visit Infectious Disease [facility] Bell, [address] [place] [address] 04/28/2023 Office Visit Family Medicine Carmen Sifuentes MD [address] [place] [address] 05/05/2023 Office Visit Cardiology Sobia Brewster PA-C [address] [place] [address] 05/09/2023 Office Visit Gastroenterology Wendy Frias DO [address] [place] [address] 05/12/2023 Telemedicine [facility] Lashay Blevins PA-C [address] [facility] [place] [address] Beverly Lozoya, [address] [place] [phone] 08/04/2023 Office Visit Urology Alfredo Panda MD [address] [place] [address] Scheduled Procedures Name Priority Associated Diagnoses [...] Additional history exists CKD PHOS USE SMARTSET 57304 10/24/202310/05, 02/18/2022, 02/17/2022, Additional history exists TSH 02/14/2024 02/13/2023, 10/05, 02/28/2022, Additional history exists CKD HGB USE SMARTSET 97776 02/19/202402/18, 02/11/2023, 02/07/2023, Additional history exists Colonoscopy [...] this encounter Medical Devices Implanted Type Area Chef Under Device Identifier Shelf Expiration Date Model / Serial / Lot Sut Steel 6 [id number] - [id number] Implanted:Qty: 1 on 02/15/2011 at OR [facility] N/A: Chest DO NOT USE 07/21/2015 [id number] / / [id number] documented as of this encounter Advance Directives Documents on File Type Date Recorded Patient Litigation Manager 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 Question Answer Comments Discussion of Advance Directives occurred with: Patient Does the patient have a Living Will? No Does the patient have Health Care Power of Research And Development Specialist? No Code Status History Code Status Date [...] the patient have Health Care Power of Research And Development Specialist? No Full Code 02/01/2010 4:02 PM 02/02/2010 4:09 PM This order reflects the patients wishes and were consensually agreed upon. Question Answer Comments Discussion of Advance Directives occurred with: Not Discussed Does the patient have a Living Will? No Does the patient have Health Care Power of Research And Development Specialist? No Healthcare Agents on File Name Relationship Healthcare Agent [facility] Communication Carolyn Ballard Adult Child Health Care Agent Care Teams Portable Track Crew Chief Relationship Specialty Start Date End Date Carmen Sifuentes MD [address] [place] [address] PCP - General Family Medicine 07/16/17 documented as of this encounter
--- OUTSIDE RECORDS SUMMARY | 2023-05-17 12:08 | External Medical Summary | Summary of Care ---
Author Name Unknown Organization [facility] Address [address] [place] [address] Phone [phone] Care Team Providers Care Machine Cleaner Name Role Phone Brian Domínguez MD Primary Care Provider [phone]- [phone] Reason for Visit * Reason Comments eRx-Medication Refill Encounter Details Date Type Department Care Team Description 04/11/2023 Refill Urology, [facility] [address] [facility] [place] [address] Alfredo Ahmadi MD [address] [facility] [address] [place] [address] Allergies Active Allergy Reactions Severity Noted Date Comments Propoxyphene Hcl Rash Low 10/29/2010 Fentanyl Diarrhea Low 04/26/2010 anxiety Methocarbamol Medium 10/05/2020 Other reaction(s): Delirium Methocarbamol Low 04/15/2007 Zolpidem Low 10/05/2020 Other reaction(s): Confusion documented as of this encounter (statuses as of 04/11/2023) Medications Medication Sig Dispensed Refills Start Date End Date Status ARIPiprazole (ABILIFY) 2 MG Tablet Take 1 Tablet by mouth in the morning. 0 07/11/19 16 Active venlafaxine XR (EFFEXOR XR) 150 MG [id number]:De pression Take 1 Cap by mouth daily. With food. 30 Cap 5 09/02/19 17 Active Additional Information Patient taking differently: 225 mgOral Daily(AM),Taking a total of 225 mg, Indications: Takes 225 mg total every morning with food (150 mg tab + 75 mg tab), Reported on 03/03/2023 Blood Glucose Monitoring Suppl ([employer] Laile GLUCOMETER) w/Device KITIndications:Unc ontrolled type 2 diabetes mellitus without complication, without long-term current use of insulin Use as directed. Use as directed once daily 1 Kit 0 11/19/19 18 Active Blood Glucose Monitoring Suppl (M87) w/Device KIT Use as directed. Use as directed. 1 Kit 0 11/01/19 19 Active Spacer/Aero-Holdin g Chambers WISAM Use with inhaler. Wheezing/bronchiti s. 1 Device 0 04/08/20 19 Active [employer] Delica Lancets 33G MISC USE UP TO FOUR TIMES A DAY Dx:E11.4 100 Each 5 09/30/19 20 Active Lancet Devices (CosmEthicsTOUCH DELICA LANCING DEV) MISC Use four times [...] Respimat 2.5 MCG/ACT Inhalation Aerosol Solution (Tiotropium [place] Monohydrate) Inhale by mouth 2 Puffs in [...] 06/05/20 Active Vitamin D (Ergocalciferol) 1.25 MG (26904 UT) Oral Capsule (Drisdol)Indicatio ns:Vitamin D deficiency [...] Tablet 1 12/20/19 23 Active UltiCare Pen [place] 31G X 5 MM (Insulin Pen Needle) use TWICE DAILY 200 Each 3 12/24/19 Active Torsemide 20 MG Oral Tablet (Demadex)Indicatio ns:Atherosclerotic heart disease of [place] coronary artery with other forms of angina pectoris (HCC),Hypertensive heart disease with chronic diastolic congestive heart failure (HCC) TAKE 1 TABLET BY MOUTH EVERY MORNING. MAY TAKE 1 ADDITIONAL TABLET NEEDED FOR SWELLING. 90 Tablet 12/25/19 23 Active Spironolactone 50 MG Oral Tablet (Aldactone)Indicat ions:GONZALEZ (nonalcoholic steatohepatitis),P ortal hypertension ([facility]),Chronic liver disease and cirrhosis,Portal hypertensive gastropathy Take 1 tablet by mouth in the morning and before bedtime 180 Tablet 3 01/17/20 23 Active Nystatin 490286 UNIT/GM External Powder (Nystop)Indication s:Candidal intertrigo Apply [...] neuropathy, with long-term current use of insulin ([facility]) use to test blood sugar 3 times daily 300 Strip 01/17/20 23 Active Nystatin 991526 UNIT/ML Mouth/Throat Suspension SWISH AND SWALLOW 5ML IN THE MORNING AND 5ML AT NOON AND 5 ML IN THE EVENING AND 5ML BEFORE BEDTIME, FOR THRUSH 240 mL 01/29/20 23 Active oxyCODONE HCl 5 MG Oral Tablet (Oxy IR)Indications:Lum bar spondylosis Take 1 Tablet by mouth every 8 hours as needed (pain). 60 Tablet 0 01/28/20 23 Active Additional Information Patient not taking.Reported on 02/24/2023 Vitamin C 500 MG Oral Tablet (Ascorbic Acid)Indications:R ecurrent UTI Take 1 Tablet by mouth in the morning and 1 Tablet before bedtime. 60 Tablet 5 07/25/20 23 Active Gabapentin 300 MG Oral Capsule [...] MORNING 90 Capsule 0 04/11/20 23 Active Tamsulosin HCl 0.4 MG Oral Capsule (Flomax) Take 1 Capsule by mouth in the morning. Every morning.. 90 Capsule 3 09/19/19 23 023 Discontinued documented as of this encounter (statuses as of 04/11/2023) Active Problems Problem Noted Date Medical home patient encounter 3 Hypertensive heart and kidne y disease with chronic diastolic congestive heart failure and stage 3a chronic kidney disease 12/28/2021 Last Assessment & Plan: Euvolemic, BP stable EF 55% 09/25 GFR 69 02/25 -Continue Torsemide 20 mg BID, Spironolactone 25 mg BID, Tropol XL 50 mg daily Atherosclerotic heart diseas e of [place] coronary artery with other forms of angina pectoris 11/15/2021 Last Assessment & Plan: Stable. No angina -continue toprol, ASA and statin Seasonal allergies 11/15/2021 Recurrent UTI 10/07/2021 Last Assessment & Plan: Followed by urology Pt is supposed to be on methenamine--will need to clarify with dgt that she is giving this. 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 Anxiety 08/05/2017 Lmiocwh-Daqbn-Qwzti disease 06/27/2015 Last Assessment & Plan: Frequent [...] as of this encounter (statuses as of 04/11/2023) Resolved Problems Problem Noted Date Resolved Date [...] 05/06/2018 019 Atherosclerotic heart diseas e of [place] coronary artery with other forms of angina [...] 10/31/201008/08 Acute coronary syndrome 10/30/2010 01/22/20 14 [place] [employer] Other*[id number] 02/02/2010 04/18/2014 Overview: [facility], Dr Joel Kwon PI Obesity, morbid [...] thrombosis 06/17/2006 01/21/2014 longterm current use of anticoagulant therapy 1 08/18/2005 [...] as of this encounter (statuses as of 04/11/2023) Immunizations Name Administration Dates Next Due COVID-19 [...] encounter Miscellaneous Notes * Telephone Encounter - Alfredo Ahmadi MD - 04/11/2023 4:50 PM EDTSigned Prescriptions: Disp Refills Tamsulosin HCl 0.4 MG Oral Capsule (Flomax)90 Cap*0 Sig: TAKE 1 CAPSULE BY MOUTH EVERY MORNING Authorizing Provider: ALFREDO AHMADI * Telephone Encounter - Hue Coates LPN - 04/11/2023 1:16 PM EDTPending Prescriptions: Disp Refills Tamsulosin HCl 0.4 MG Oral Capsule [Pharma*90 Cap*0 Sig: TAKE 1 CAPSULE BY MOUTH EVERY MORNING * Telephone Encounter - Hue Coates LPN - 04/11/2023 1:15 PM EDT Refill of tamsulosin requested please Last appt: 09/18/2022 (in office), Visit date not found (telemedicine) Next appt: 08/04/2023 Review of patient's allergies indicates: Allergen Reactions Methocarbamol Other reaction(s): Delirium Darvon [Propoxyphene Hcl] Rash Fentanyl Diarrhea anxiety Robaxin [Methocarbamol] Zolpidem Other reaction(s): Confusion Thank you Yudith documented in this encounter Plan of Treatment Upcoming Encounters Date Type Specialty Care Team Description 04/23/2023 Office Visit Infectious Disease Kendall Bell, [address] [place] [address] 04/28/2023 Office Visit Family Medicine Brian Domínguez MD [address] [place] [address] 05/05/2023 Office Visit Cardiology Sobia Brewster PA-C [address] [place] [address] 05/09/2023 Office Visit Gastroenterology Wendy Frias DO [address] [place] [address] 05/12/2023 Telemedicine [facility] Lashay Blevins PA-C [address] [place] [address] Beverly Lozoya, [address] [place] [phone] 08/04/2023 Office Visit Urology Alfredo Ahmadi MD [address] [place] [address] Scheduled Procedures [...] Additional history exists CKD PHOS USE SMARTSET 39383 10/24/202310/05, 02/18/2022, 02/17/2022, Additional history exists TSH 02/14/2024 02/13/2023, 10/05, 02/28/2022, Additional history exists CKD HGB USE SMARTSET 90386 02/19/202402/18, 02/11/2023, 02/07/2023, Additional history exists Colonoscopy [...] this encounter Medical Devices Implanted Type Area Sales Development Associate Device Identifier Shelf Expiration Date Model / Serial / Lot Sut Steel 6 [id number] - [id number] Implanted:Qty: 1 on 02/15/2011 at OR [facility] N/A: Chest DO NOT USE 07/21/2015 [id number] / / [id number] documented as of this encounter Advance Directives Documents on File Type Date Recorded Patient Panel Machine Operator Expl anation POL 05/06/2018 POL Latest Code Status on File Code Status Date Activated Date Inactivated Comments Full Code 06/25/2011 3:09 AM 06/26/2011 9:47 PM Thi s order reflects the patients wishes and were consensually agreed upon. Question Answer Comments Discussion of Advance Directives occurred with: Patient Does the patient have a Living Will? No Does the patient have Health Care Power of Drying Unit Felting Machine Operator? No Code Status History Code Status Date [...] the patient have Health Care Power of Drying Unit Felting Machine Operator? No Full Code 02/01/2010 4:02 PM 02/02/2010 4:09 PM This order reflects the patients wishes and were consensually agreed upon. Question Answer Comments Discussion of Advance Directives occurred with: Not Discussed Does the patient have a Living Will? No Does the patient have Health Care Power of Drying Unit Felting Machine Operator? No Healthcare Agents on File Name Relationship Healthcare Agent [facility] Communication Carolyn Ballard Adult Child Health Care Agent Care Teams Machine Cleaner Relationship Specialty Start Date End Date Brian Domínguez MD [address] [place] [address] PCP - General Family Medicine 07/16/17 documented as of this encounter
--- OUTSIDE RECORDS SUMMARY | 2023-05-17 12:08 | External Medical Summary | Summary of Care ---
Author Name Unknown Organization [facility] Address [address] [place] [address] Phone [phone] Care Team Providers Care Php Mysql Developer Name Role Phone Brian Domínguez MD Primary Care Provider [phone]- [phone] Encounter Details Date Type Department Care Team Description 04/09/2023 Phosphoric [facility]ants [facility] [address] [facility] [place] [address] Nayla Bellamy, RN [address] [place] [address] Medical home patient encounter* Allergies Active Allergy Reactions Severity Noted Date Comments Propoxyphene Hcl Rash Low 10/29/2010 Fentanyl Diarrhea Low 04/26/2010 anxiety Methocarbamol Medium 10/05/2020 Other reaction(s): Delirium Methocarbamol Low 04/15/2007 Zolpidem Low 10/05/2020 Other reaction(s): Confusion documented as of this encounter (statuses as of 04/09/2023) Medications Medication Sig Dispensed Refills Start Date End Date Status ARIPiprazole (ABILIFY) 2 MG Tablet Take 1 Tablet by mouth in the morning. 0 2015 Active venlafaxine XR (EFFEXOR XR) 150 MG [id number]:Dep ression Take 1 Cap by mouth daily. [...] 0 11/18/2017 Active Blood Glucose Monitoring Suppl (Geniuzz VERIO) w/Device KIT Use as directed. Use [...] Tablet in the morning. 90 Tablet 3 04/19/2022 Active Atorvastatin Calcium 40 MG Oral Tablet (Lipitor)Indication s:Dyslipidemia, goal LDL below 70 Take by mouth 1 Tablet in the morning. 90 Tablet 3 04/25/2022 Active Spiriva Respimat 2.5 MCG/ACT Inhalation Aerosol Solution (Tiotropium [place] Monohydrate) Inhale by mouth 2 Puffs in [...] 06/05/2022 Active Vitamin D (Ergocalciferol) 1.25 MG (35349 UT) Oral Capsule (Drisdol)Indication s:Vitamin D deficiency TAKE ONE CAPSULE BY MOUTH WEEKLY 12 Capsule 3 06/19/2022 Active Benzonatate 100 MG Oral Capsule (Tessalon Perles) TAKE ONE CAPSULE BY MOUTH THREE TIMES DAILY NEEDED for cough. do not cut, crush or chew 50 Capsule 0 07/10/2022 Active AIRS Disposable Nebulizer Kit Use as [...] the morning. Every morning.. 90 Capsule 3 09/18/2022 Active lamoTRIgine 25 MG Oral Tablet (LaMICtal) 1 Tablet. Taking 2 at bedtime and 1 in morning 0 09/08/2022 Active Famotidine 40 MG Oral Tablet (Pepcid)Indications :Gastroesophageal reflux disease with esophagitis without hemorrhage Take 1 Tablet by mouth in the morning. 90 Tablet 1 10/23/2022 Active Albuterol Sulfate HFA 108 (90 Base) [...] 90 Tablet 1 12/19/2022 Active UltiCare Pen [place] 31G X 5 MM (Insulin Pen Needle) use TWICE DAILY 200 Each 3 12/23/2022 Active Torsemide 20 MG Oral Tablet (Demadex)Indication s:Atherosclerotic heart disease of the [place] coronary artery with other forms [...] bedtime 180 Tablet 3 01/16/2023 Active Nystatin 451737 UNIT/GM External Powder (Nystop)Indications :Candidal intertrigo Apply [...] daily 300 Strip 3 01/16/2023 Active Nystatin 201366 UNIT/ML Mouth/Throat Suspension SWISH AND SWALLOW 5ML [...] Pain, Severe. 30 Tablet 0 04/07/2023 Active Amoxicillin-Pot Clavulanate 875-125 MG Oral Tablet (Augmentin) Take 1 Tablet by mouth in the morning and 1 Tablet before bedtime. Do all this for 10 days. 20 Tablet 0 04/02/2023 04/12/20 23 Active Methenamine Hippurate 1 GM Oral Tablet (Hiprex)Indications :Recurrent UTI TAKE ONE TABLET BY MOUTH IN THE MORNING AND ONE TABLET BEFORE BEDTIME 60 Tablet 0 04/08/2023 Active documented as of this encounter (statuses as of 04/09/2023) Active Problems Problem Noted Date Medical home patient encounter 3 Hypertensive heart and kidne y disease with chronic diastolic congestive heart failure and stage 3a chronic kidney disease 12/28/2021 Last Assessment & Plan: Euvolemic, BP stable EF 55% 09/25 GFR 69 02/25 -Continue Torsemide 20 mg BID, Spironolactone 25 mg BID, Tropol XL 50 mg daily Atherosclerotic heart diseas e of the [place] coronary artery with other forms of angina pectoris 11/15/2021 Last Assessment & Plan: Stable. No angina -continue toprol, ASA and statin Seasonal allergies 11/15/2021 Recurrent UTI 10/07/2021 Last Assessment & Plan: Followed by urology Pt is supposed to be on methenamine--will need to clarify with dgt that she is giving this. 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-egg pasteurizer and ID Type 2 diabetes mellitus wit [...] drugs Pelvic pain 03/27/2021 Urge incontinence 03/27/2021 roasterman (current) use of insulin 09/28 Diabetic gastroparesis 04/28/2019 Type 2 diabetes mellitus with diabetic n europathy 09/07/2018 Hypertensive heart disease with chronic diastolic congestive heart failure 05/06/2018 Fatty liver 05/06/2018 Chronic liver disease and cirrhosis 04/08 Last Assessment & Plan: Followed by GI Reports compliance with lactulose. 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/2014 roasterman current use of anticoagulant therapy 1 08/18/2005 [...] as of this encounter (statuses as of 04/09/2023) Immunizations Name Administration Dates Next Due COVID-19 [...] as of this encounter Progress Notes * Nayla Bellamy RN - 04/09/2023 4:00 PM EDT CM Progress note S: Spoke with patient and her daughter Carolyn. Angelina reports feeling down a little more than usual,she is "exhausted" form not being able to get around as she previously had since having surgery. Home health continues to come work with her. She declines the need for [facility] services at this time. Reports her catheter had been leaking this week. Spoke with daughter Melinda who reports that they have been unable to get to the wound clinic appointment with multiple appointments, but plan to do this. Hopeful that home health can take over with wound care after wound clinic eval. Melinda feels it needs debrided, [facility]. She also will be interested to speak with Dr. Ruiz at the next follow up, if Angelina can bear full weight on her L extremity due to having a pressure sore to the L heel. Reviewed upcoming appointments. O: phone call follow up A: patient alert, forgetful (had stated she thought home health will be changing her catheter this week, daughter verified this had already occurred) P: Reinforced care plan as previously established. Will re-mail [facility] as last address listed in [place] was previous address, verified with daughter. documented in this encounter Plan of Treatment Upcoming Encounters Date Type Specialty Care Team Description 04/23/2023 Office Visit Infectious Disease Kendall Bell, DO [address] [place] [address] 04/28/2023 Office Visit Family Medicine Brian Domínguez MD [address] [place] [address] 05/05/2023 Office Visit Cardiology Sobia Brewster PA-C [address] [place] [address] 05/09/2023 Office Visit Gastroenterology Wendy Frias DO [address] [place] [address] 05/12/2023 Telemedicine [facility] Lashay Blevins PAAttilaC [address] [place] [address] Beverly Lozoya, [facility] [address] [place] [id number] 08/04/2023 Office Visit Urology Alfredo Panda MD [address] [place] [address] [place] [address] Scheduled Procedures Name Priority Associated [...] Additional history exists CKD PHOS USE SMARTSET 68618 10/24/202310/05, 02/18/2022, 02/17/2022, Additional history exists TSH 02/14/2024 02/13/2023, 10/05, 02/28/2022, Additional history exists CKD HGB USE SMARTSET 79585 02/19/202402/18, 02/11/2023, 02/07/2023, Additional history exists Colonoscopy [...] this encounter Medical Devices Implanted Type Area Mastic Floor Layer Device Identifier Shelf Expiration Date Model / Serial / Lot Jenna Rojas 6 [id number] - [id number] Implanted:Qty: 1 on 02/15/2011 at OR [facility] N/A: Chest DO NOT USE 07/21/2015 [id number] / / [id number] documented as of this encounter Visit Diagnoses Diagnosis Medical home patient encounter- Primary Other specified examination documented in this encounter Advance Directives Documents on File Type Date Recorded Patient Cap And Hat Production Supervisor Jose GARZON 05/06/2018 POL Latest Code Status on File Code Status Date Activated Date Inactivated Comments Full Code 06/25/2011 3:09 AM 06/26/2011 9:47 PM Thi s order reflects the patients wishes and were consensually agreed upon. Question Answer Comments Discussion of Advance Directives occurred with: Patient Does the patient have a Living Will? No Does the patient have Health Care Power of Director Of Aviation? No Code Status History Code Status Date [...] the patient have Health Care Power of Director Of Aviation? No Full Code 02/01/2010 4:02 PM 02/02/2010 4:09 PM This order reflects the patients wishes and were consensually agreed upon. Question Answer Comments Discussion of Advance Directives occurred with: Not Discussed Does the patient have a Living Will? No Does the patient have Health Care Power of Director Of Aviation? No Healthcare Agents on File Name Relationship Healthcare Agent Relationshi p Communication Carolyn Ballard Adult Child Health Care Agent Care Teams Php Mysql Developer Relationship Specialty Start Date End Date Brian Domínguez MD [address] [place] [address] PCP - General Family Medicine 07/16/17 documented as of this encounter
--- OUTSIDE RECORDS SUMMARY | 2023-05-17 12:08 | External Medical Summary | Summary of Care ---
Author Name Unknown Organization [facility] Address [address] [place] [address] Phone [phone] Care Team Providers Care Charge Authorizer Name Role Phone Brian Domínguez MD Primary Care Provider [phone]- [phone] Reason for Visit * Reason Comments eRx-Medication Refill Encounter Details Date Type Department Care Team Description 04/08/2023 Refill Urology, [facility] [address] [facility] [place] [address] Alfredo Ahmadi MD [address] [facility] [address] [place] [address] Recurrent UTI Allergies Active Allergy Reactions Severity Noted Date Comments Propoxyphene Hcl Rash Low 10/29/2010 Fentanyl Diarrhea Low 04/26/2010 anxiety Methocarbamol Medium 10/05/2020 Other reaction(s): Delirium Methocarbamol Low 04/15/2007 Zolpidem Low 10/05/2020 Other reaction(s): Confusion documented as of this encounter (statuses as of 04/08/2023) Medications Medication Sig Dispensed Refills Start Date End Date Status ARIPiprazole (ABILIFY) 2 MG Tablet Take 1 Tablet by mouth in the morning. 0 07/11/19 16 Active venlafaxine XR (EFFEXOR XR) 150 MG [id number]:De pression Take 1 Cap by mouth daily. With food. 30 Cap 5 09/02/19 17 Active Additional Information Patient taking differently: 225 mgOral Daily(AM),Taking a total of 225 mg, Indications: Takes 225 mg total every morning with food (150 mg tab + 75 mg tab), Reported on 03/03/2023 Blood Glucose Monitoring Suppl ([employer] GLUCOMETER) w/Device KITIndications:Unc ontrolled type 2 diabetes mellitus without complication, without long-term current use of insulin Use as directed. Use as directed once daily 1 Kit 0 11/19/19 18 Active Blood Glucose Monitoring Suppl (PulseSocks) w/Device KIT Use as directed. Use as directed. 1 Kit 0 11/01/19 19 Active Spacer/Aero-Holdin g Chambers WISAM Use with inhaler. Wheezing/bronchiti s. 1 Device 0 04/08/20 19 Active Web Designed Rooms DelpayasUgym Lancets 33G MISC USE UP TO FOUR TIMES A DAY Dx:E11.4 100 Each 5 09/30/19 20 Active Lancet Devices (Star[employer]2 DELICA LANCING DEV) MISC Use four times [...] the morning. 90 Tablet 3 04/19/20 22 Active Atorvastatin Calcium 40 MG Oral Tablet (Lipitor)Indicatio ns:Dyslipidemia, goal LDL below 70 Take by mouth 1 Tablet in the morning. 90 Tablet 3 04/25/20 Active Spiriva Respimat 2.5 MCG/ACT Inhalation Aerosol Solution (Tiotropium [place] Monohydrate) Inhale by mouth 2 Puffs in [...] 22 Active Vitamin D (Ergocalciferol) 1.25 MG (98214 UT) Oral Capsule (Drisdol)Indicatio ns:Vitamin D deficiency TAKE ONE CAPSULE BY MOUTH WEEKLY 12 Capsule 3 06/19/20 22 Active Benzonatate 100 MG Oral Capsule (Tessalon [place]) TAKE ONE CAPSULE BY MOUTH THREE TIMES DAILY NEEDED for cough. do not cut, crush or chew 50 Capsule 0 07/10/19 23 Active AIRS Disposable Nebulizer Kit Use as [...] once per week (Fri), Reported on 03/03/2023 Tamsulosin HCl 0.4 MG [...] Tablet 1 12/20/19 23 Active UltiCare Pen [place] 31G X 5 MM (Insulin Pen Needle) use TWICE DAILY 200 Each 3 12/24/19 23 Active Torsemide 20 MG Oral Tablet (Demadex)Indicatio ns:Atherosclerotic heart disease of [place] coronary artery with other forms of angina [...] 180 Tablet 3 01/17/20 23 Active Nystatin 225929 UNIT/GM External Powder (Nystop)Indication s:Candidal intertrigo Apply [...] daily 300 Strip 01/17/20 23 Active Nystatin 767692 UNIT/ML Mouth/Throat Suspension SWISH AND SWALLOW 5ML [...] BEDTIME 60 Tablet 0 04/08/20 23 Active Methenamine Hippurate 1 GM Oral Tablet (Hiprex)Indication s:Recurrent UTI TAKE ONE TABLET BY MOUTH IN THE MORNING AND ONE TABLET BEFORE BEDTIME 60 Tablet 0 02/11/20 23 023 Discontinued documented as of this encounter (statuses as of 04/08/2023) Active Problems Problem Noted Date Medical home patient encounter 3 Hypertensive heart and kidne y disease with chronic diastolic congestive heart failure and stage 3a chronic kidney disease 12/28/2021 Last Assessment & Plan: Euvolemic, BP stable EF 55% 09/25 GFR 69 02/25 -Continue Torsemide 20 mg BID, Spironolactone 25 mg BID, Tropol XL 50 mg daily Atherosclerotic heart diseas e of [place] coronary artery with other forms of angina pectoris 11/15/2021 Last Assessment & Plan: Stable. No angina -continue toprol, ASA and statin Seasonal allergies 11/15/2021 Recurrent UTI 10/07/2021 Last Assessment & Plan: Followed by urology Pt is supposed to be on methenamine--will need to clarify with dgt that she is giving this. 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 Anxiety 08/05/2017 Zvmhrum-Dynfa-Peziw disease 06/27/2015 Last Assessment & Plan: Frequent [...] as of this encounter (statuses as of 04/08/2023) Resolved Problems Problem Noted Date Resolved Date [...] 05/06/2018 019 Atherosclerotic heart diseas e of [place] coronary artery with other forms of angina [...] 10/31/201008/08 Acute coronary syndrome 10/30/2010 01/22/20 14 [place] Research Other*[id number] 02/02/2010 04/18/2014 Overview: [place] [facility], Dr Joel Kwon [place] Obesity, morbid [...] as of this encounter (statuses as of 04/08/2023) Immunizations Name Administration Dates Next Due COVID-19 [...] Telephone Encounter - Alfredo Ahmadi MD - 04/08/2023 4:46 PM EDTSigned Prescriptions: Disp Refills Methenamine Hippurate 1 GM Oral Tablet (Hi*60 Tab*0 Sig: TAKE ONE TABLET BY MOUTH IN THE MORNING AND ONE TABLET BEFORE BEDTIME Authorizing Provider: ALFREDO AHMADI * Telephone Encounter - Heu Coates LPN - 04/08/2023 12:31 PM EDT Pending Prescriptions: Disp Refills Methenamine Hippurate 1 GM Oral Tablet [Ph*60 Tab*0 Sig: TAKE ONE TABLET BY MOUTH IN THE MORNING AND ONE TABLET BEFORE BEDTIME * Telephone Encounter - Hue Coates LPN - 04/08/2023 12:31 PM EDT Refill of methenamine requested Last appt: 09/18/2022 (in office), Visit date not found (telemedicine) Next appt: 04/09/2023 Review of patient's allergies indicates: Allergen Reactions Methocarbamol Other reaction(s): Delirium Darvon [Propoxyphene Hcl] Rash Fentanyl Diarrhea anxiety Robaxin [Methocarbamol] Zolpidem Other reaction(s): Confusion Thank you Yudith documented in this encounter Plan of Treatment Upcoming Encounters Date Type Specialty Care Team Description 04/09/2023 Office Visit Urology Alfredo Ahmadi MD [address] [place] [address] 04/23/2023 Office Visit Infectious Disease Kendall Bell, DO [address] [place] [address] 04/28/2023 Office Visit Family Medicine Brian Domínguez MD [address] [place] [address] 05/05/2023 Office Visit Cardiology Sobia Brewster PA-C [address] [place] [address] 05/09/2023 Office Visit Gastroenterology Wendy Frias DO [address] [place] [address] 05/12/2023 Telemedicine [facility] Lashay Blevins PA-C [address] [place] [address] Beverly Lozoya, [facility] Machine Tool Designer [address] [place] [address] [place] [address] Scheduled Procedures Name Priority Associated Diagnoses Date/Ti [...] Additional history exists COVID-19 Vaccine (4 - Moderna series) 08/05/2021 06/10/2021, 08/29/2020, 08/01/2020 Influenza Vaccine (FLU shot) (#1) 2023 03/14/2022, 03/14/2022, 04/10/2021, Additional history exists HbA1c 04/24/2023 10/23/2022, 04/07, 11/01/2021, Additional history exists GFR 08/21/2023 02/18/2023, 02/2023, 02/07/2023, Additional history exists Albumin/Creatinine Ratio 10/24/2023 023, 07/17/2022, 10/05/2020, Additional history exists CKD PHOS USE SMARTSET 48136 10/24/2023/03/2023, 02/18/2022, 02/17/2022, Additional history exists TSH 02/14/2024 02/13/2023, 10/05, 02/28/2022, Additional history exists CKD HGB USE SMARTSET 84583 02/19/202402/18, 02/11/2023, 02/07/2023, Additional history exists Colonoscopy [...] this encounter Medical Devices Implanted Type Area Farm Planner Device Identifier Shelf Expiration Date Model / Serial / Lot Sut Steel 6 [id number] - [id number] Implanted:Qty: 1 on 02/15/2011 at [place] [facility] N/A: Chest DO NOT USE 07/21/2015 [id number] / / [id number] documented as of this encounter Visit Diagnoses Diagnosis Recurrent UTI Urinary tract infection, site not specified documented in this encounter Advance Directives Documents on File Type Date Recorded 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 Question Answer Comments Discussion of Advance Directives occurred with: Patient Does the patient have a Living Will? No Does the patient have Health Care Power of Small Lot Operator? No Code Status History Code Status [...] the patient have Health Care Power of Small Lot Operator? No Full Code 02/01/2010 4:02 PM 02/02/2010 4:09 PM This order reflects the patients wishes and were consensually agreed upon. Question Answer Comments Discussion of Advance Directives occurred with: Not Discussed Does the patient have a Living Will? No Does the patient have Health Care Power of Small Lot Operator? No Healthcare Agents on File Name Relationship Healthcare Agent [facility] p Communication Carolyn Goldmandrewnabila Adult Child Health Care Agent Care Teams Charge Authorizer Relationship Specialty Start Date End Date Brian Domínguez MD [address] [place] [address] PCP - General Family Medicine 07/16/17 documented as of this encounter
--- OUTSIDE RECORDS SUMMARY | 2023-05-17 12:08 | External Medical Summary | Summary of Care ---
Author Name Unknown Organization [facility] Address [address] [place] [address] Phone [phone] Care Team Providers Care Managing Partner [employer] [place] Name Role Phone Brian Domínguez MD Primary Care Provider [phone]- [phone] Reason for Visit * Reason Onset Date Comments FYI 01/14/2023 Encounter Details Date Type Department Care Team Description 01/14/[address] [facility] [address] [place] [address] Brian Domínguez MD [address] [place] [address] FYI Allergies Active Allergy Reactions Severity Noted Date Comments Propoxyphene Hcl Rash Low 10/29/2010 Fentanyl Diarrhea Low 04/26/2010 anxiety Methocarbamol Medium 10/05/2020 Other reaction(s): Delirium Methocarbamol Low 04/15/2007 Zolpidem Low 10/05/2020 Other reaction(s): Confusion documented as of this encounter (statuses as of 04/15/2023) Medications Medication Sig Dispensed Refills Start Date End Date Status ARIPiprazole (ABILIFY) 2 MG Tablet Take 1 Tablet by mouth in the morning. 0 2015 Active venlafaxine XR (EFFEXOR XR) 150 MG [id number]:Dep ression Take 1 Cap by mouth daily. With food. 30 Cap 5 09/02/2016 Active Additional Information Patient taking differently: 225 mgOral Daily(AM),Taking a total of 225 mg, Indications: Takes 225 mg total every morning with food (150 mg tab + 75 mg tab), Reported on 03/03/2023 Blood Glucose Monitoring Suppl (TradeHero-fav.or.it GLUCOMETER) w/Device KITIndications:Unco ntrolled type 2 diabetes mellitus without complication, without long-term current use of insulin Use as directed. Use as directed once daily 1 Kit 0 11/18/2017 Active Blood Glucose Monitoring Suppl (Secure OutcomesIO) w/Device KIT Use as directed. Use as directed. 1 Kit 0 10/31/2018 Active Spacer/Aero-Holding Chambers WISAM Use with inhaler. Wheezing/bronchitis . 1 Device 0 04/08/2019 Active Gen4 Energy DelSmart Picture [employer] Lancets 33G MISC USE UP TO FOUR TIMES A DAY Dx:E11.4 100 Each 5 09/30/2019 Active Lancet Devices (StorageByMail.comTOUCH DELICA LANCING DEV) MISC Use four times [...] Respimat 2.5 MCG/ACT Inhalation Aerosol Solution (Tiotropium [place] Monohydrate) Inhale by mouth 2 Puffs in [...] 06/05/2022 Active Vitamin D (Ergocalciferol) 1.25 MG (58916 UT) Oral Capsule (Drisdol)Indication s:Vitamin D deficiency [...] 90 Tablet 1 12/19/2022 Active UltiCare Pen [place] 31G X 5 MM (Insulin Pen Needle) use TWICE DAILY 200 Each 3 12/23/2022 Active Torsemide 20 MG Oral Tablet (Demadex)Indication s:Atherosclerotic heart disease of [place] coronary artery with other forms of angina pectoris (HCC),Hypertensive heart disease with chronic diastolic congestive heart failure (HCC) TAKE 1 TABLET BY MOUTH EVERY MORNING. MAY TAKE 1 ADDITIONAL TABLET NEEDED FOR SWELLING. 90 Tablet 1 12/24/2022 Active documented as of this encounter (statuses as of 04/15/2023) Active Problems Problem Noted Date Medical home patient encounter 3 Hypertensive heart and kidne y disease with chronic diastolic congestive heart failure and stage 3a chronic kidney disease 12/28/2021 Last Assessment & Plan: Euvolemic, BP stable EF 55% 09/25 GFR 69 02/25 -Continue Torsemide 20 mg BID, Spironolactone 25 mg BID, Tropol XL 50 mg daily Atherosclerotic heart diseas e of [place] coronary artery with other forms of angina pectoris 11/15/2021 Last Assessment & Plan: Stable. No angina -continue toprol, ASA and statin Seasonal allergies 11/15/2021 Recurrent UTI 10/07/2021 Last Assessment & Plan: Followed by urology Pt is supposed to be on methenamine--will need to clarify with dgt that she is giving this. 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/2014 alf current use of anticoagulant therapy 1 08/18/2005 [...] as of this encounter (statuses as of 04/15/2023) Immunizations Name Administration Dates Next Due COVID-19 [...] encounter Miscellaneous Notes * Telephone Encounter - Guillermina Whitehead LPN - 01/14/2023 4:56 PM EDT FYI * Telephone Encounter - DENG Cruz - 01/14/2023 3:23 PM EDT Wanted to let PCP know that pt has area on left breast that has been itchy with scab documented in this encounter Plan of Treatment Upcoming Encounters Date Type Specialty Care Team Description 04/23/2023 Office Visit Infectious Disease Kendall Bell, DO [address] [place] [address] 04/28/2023 Office Visit Family Medicine Brian Domínguez MD [address], [place] [phone] 05/05/2023 Office Visit Cardiology Sobia Brewster, PAAttilaC [address] [place] [address] 05/09/2023 Office Visit Gastroenterology Wendy Frias DO [address] [place] [address] 05/12/2023 Telemedicine [facility] Lashay Blevins PA-C [address] [facility] [place] [address] [address] [place] [phone] 08/04/2023 Office Visit Urology Alfredo Panda MD [address] [place] [phone] Scheduled Procedures Name Priority Associated Diagnoses Date/Ti [...] Additional history exists CKD PHOS USE SMARTSET 80454 10/24/202310/05, 02/18/2022, 02/17/2022, Additional history exists TSH 02/14/2024 02/13/2023, 10/05, 02/28/2022, Additional history exists CKD HGB USE SMARTSET 57085 02/19/202402/18, 02/11/2023, 02/07/2023, Additional history exists Colonoscopy [...] this encounter Medical Devices Implanted Type Area Tours Hostess Device Identifier Shelf Expiration Date Model / Serial / Lot Jenna Rojas 6 [id number] - [id number] [place]planted:Q[place]: 1 [place] [facility] [place] Chest DO NOT USE 07/21/2015 [id number] / / [id number] documented as of this encounter Advance Directives Documents on File Type Date Recorded 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 Question Answer Comments Discussion of Advance Directives occurred with: Patient Does the patient have a Living Will? No Does the patient have Health Care Power of Freight Loader? No Code Status History Code Status Date [...] the patient have Health Care Power of Freight Loader? No Full Code 02/01/2010 4:02 PM 02/02/2010 4:09 PM This order reflects the patients wishes and were consensually agreed upon. Question Answer Comments Discussion of Advance Directives occurred with: Not Discussed Does the patient have a Living Will? No Does the patient have Health Care Power of Freight Loader? No Healthcare Agents on File Name Relationship Healthcare Agent [facility] Communication Carolyn Elio Adult Child Health Care Agent Care Teams Managing Partner [employer] [place] Relationship Specialty Start Date End Date Brian Domínguez MD [address] [place] [address] PCP - General Family Medicine 07/16/17 documented as of this encounter
--- OUTSIDE RECORDS SUMMARY | 2023-05-17 12:08 | External Medical Summary | Summary of Care ---
Author Name Unknown Organization [facility] Address [address] [place] [address] Phone [phone] Care Team Providers Care Medical Reviewer Name Role Phone Carmen Sifuentes MD Primary Care Provider [phone]- [phone] Reason for Visit * Reason Comments eRx-Medication Refill Encounter Details Date Type Department Care Team Description 04/17/2023 Refill [facility] [address] [place] [address] Carmen Sifuentes MD [address] [place] [address] HTN, goal below 130/80* Allergies Active Allergy Reactions Severity Noted Date [...] Active venlafaxine XR (EFFEXOR XR) 150 MG [id number]:De pression Take 1 Cap by mouth daily. With food. 30 Cap 5 09/02/19 17 Active Additional Information Patient taking differently: 225 mgOral Daily(AM),Taking a total of 225 mg, Indications: Takes 225 mg total every morning with food (150 mg tab + 75 mg tab), Reported on 03/03/2023 Blood Glucose Monitoring Suppl (D-Nativoo GLUCOMETER) w/Device KITIndications:Unc ontrolled type 2 diabetes mellitus without complication, without long-term current use of insulin Use as directed. Use as directed once daily 1 Kit 0 11/19/19 18 Active Blood Glucose Monitoring Suppl (IntellitacticsIO) w/Device KIT Use as directed. Use as directed. 1 Kit 0 11/01/19 19 Active Spacer/Aero-Holdin g Chambers WISAM Use with inhaler. Wheezing/bronchiti s. 1 Device 0 04/08/20 19 Active ClassPass Delica Lancets 33G MISC USE UP TO FOUR TIMES A DAY Dx:E11.4 100 Each 5 09/30/19 20 Active Lancet Devices (DDStocks DELICA LANCING DEV) MISC Use four times [...] Respimat 2.5 MCG/ACT Inhalation Aerosol Solution (Tiotropium [place] Monohydrate) Inhale by mouth 2 Puffs in [...] 22 Active Vitamin D (Ergocalciferol) 1.25 MG (66758 UT) Oral Capsule (Drisdol)Indicatio ns:Vitamin D deficiency [...] Tablet 1 12/20/19 23 Active UltiCare Pen [place] 31G X 5 MM (Insulin Pen Needle) use TWICE DAILY 200 Each 3 12/24/19 23 Active Torsemide 20 MG Oral Tablet (Demadex)Indicatio ns:Atherosclerotic heart disease of [place] coronary artery with other forms of angina [...] the morning and before bedtime 180 Tablet 01/17/20 23 Active Nystatin 669717 UNIT/GM External Powder (Nystop)Indication s:Candidal intertrigo Apply [...] 300 Strip 3 01/17/20 23 Active Nystatin 308780 UNIT/ML Mouth/Throat Suspension SWISH AND SWALLOW 5ML [...] MORNING 90 Tablet 3 10/12/20 23 Active Metoprolol Succinate ER 25 MG Oral Tablet Extended Release 24 Hour (toPROL XL) Take by mouth 1 Tablet in the morning. 90 Tablet 3 04/19/20 22 023 Discontinued documented as of this [...] mg daily Atherosclerotic heart diseas e of [place] coronary artery with other forms of angina pectoris 11/15/2021 Last Assessment & Plan: Stable. No angina -continue toprol, ASA and statin Seasonal allergies 11/15/2021 Recurrent UTI 10/07/2021 Last Assessment & Plan: Followed by urology Pt is supposed to be on methenamine--will need to clarify with dgt that she is giving this. 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 Anxiety 08/05/2017 Xqqgbyi-Hrnvf-Twaci disease 06/27/2015 Last Assessment & Plan: Frequent [...] 05/06/2018 019 Atherosclerotic heart diseas e of [place] coronary artery with other forms of angina [...] serious comorbidity 02/04/2012 04/29/2019 Overview: bmi= 38.85 7/31/12 ICD-10 update of inactive diagnosis Delirium 02/04/2012 07/19/2014 Sepsis 02/04/2012 07/19/2014 Cellulitis of left foot 02/04/2012 06/27/20 15 Sundowning 02/04/2012 07/19/2014 S/P CABG x 1 07/17/2011 08/19/2012 ASCVD (arteriosclerotic cardiovascular disease) 07/17/2011 09/07/2018 Elevated liver enzymes 06/25/2011 5 Unstable angina 02/12/2011 01/21/2014 Recurrent In-stent stenosis 10/31/201008/08 Acute coronary syndrome 10/30/2010 01/22/20 14 [place] Research Other*[id number] 02/02/2010 04/18/2014 Overview: [place] Registry, Dr Joel Kwon PI Obesity, morbid [...] Duplicate Protocol #2. 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 current use of anticoagulant therapy 1 08/18/2005 [...] and older)(Boostrix) 06/27/2015 Varicella Zoster Vaccine (Adult) 08/09/2016,11/03/2016 documented as of this encounter Social History [...] encounter Miscellaneous Notes * Telephone Encounter - Loli King RP - 04/17/2023 2:12 PM EDTSigned Prescriptions: Disp Refills Metoprolol Succinate ER 25 MG Oral Tablet *90 Tab*3 Sig: TAKE ONE TABLET BY MOUTH EVERY MORNINGAuthorizing Provider: CARMEN SIFUENTES User: LOLI BARAKAT V * Telephone Encounter - Loli Barakat V [facility] - 04/17/2023 2:09 PM EDT Did you pend patient's preferred pharmacy and medication before forwarding?no Pharmacy: [id number] Pending Prescriptions: Disp Refills Metoprolol Succinate ER 25 MG Oral Tablet*90 Tab*0 Sig: TAKE ONE TABLET BY MOUTH EVERY MORNING Last Visit: 02/24/2023 (in office), 03/06/2022 (telemedicine) Next Visit: 04/28/2023 If no future appointments scheduled, and last appointment is greater than a year ago, please schedule patient for a follow-up appointment Last date the medication was ordered: 10/14/22 Is this request for a controlled substance?No [...] AM HGBA1C 5.9 (H) 05/22/2020 01:24 PM Loli Barakat RPh, CACP, CDE Clinical Pharmacist [facility] 04/17/2023, 2:10 PM documented in this encounter Plan of Treatment Upcoming Encounters Date Type Specialty Care Team Description 04/23/2023 Office Visit Infectious Disease Kendall Bell, DO [address] [place] [address] 04/28/2023 Office Visit Family Medicine Carmen Sifuentes MD [address], [place] [phone] 05/05/2023 Office Visit Cardiology Sobia Brewster PA-C [address] [place] [address] 05/09/2023 Office Visit Gastroenterology Wendy Frias, DO [address] [place] [address] 05/12/2023 Telemedicine [facility] Lashay Blevins PA-C [address] [place] [address] Beverly Lozoya, [address] [place] [address] 07/14/2023 Office Visit Pulmonary Mary Grace Johnson MD [address] [place] [address] 08/04/2023 Office Visit Urology Alfredo Panda MD [address] [place] [address] Scheduled Procedures Name Priority Associated Diagnoses Date/Ti [...] Additional history exists CKD PHOS USE SMARTSET 41746 10/24/202310/05, 02/18/2022, 02/17/2022, Additional history exists TSH 02/14/2024 02/13/2023, 10/05, 02/28/2022, Additional history exists CKD HGB USE SMARTSET 13666 02/19/202402/18, 02/11/2023, 02/07/2023, Additional history exists Colonoscopy [...] this encounter Medical Devices Implanted Type Area Pulp Piler Device Identifier Shelf Expiration Date Model / Serial / Lot Jenna Rojas 6 [id number] - [id number] Implanted:Qty: 1 on 02/15/2011 at [place] [facility] [place]: Chest DO NOT USE 07/21/2015 [id number] / / [id number] documented as of this encounter Visit Diagnoses Diagnosis HTN, goal below 130/80- Primary Unspecified essential hypertension documented in this encounter Advance Directives Documents on File Type Date Recorded 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 Question Answer Comments Discussion of Advance Directives occurred with: Patient Does the patient have a Living Will? No Does the patient have Health Care Power of Medical Art Therapist? No Code Status History Code Status Date [...] the patient have Health Care Power of Medical Art Therapist? No Full Code 02/01/2010 4:02 PM 02/02/2010 4:09 PM This order reflects the patients wishes and were consensually agreed upon. Question Answer Comments Discussion of Advance Directives occurred with: Not Discussed Does the patient have a Living Will? No Does the patient have Health Care Power of Medical Art Therapist? No Healthcare Agents on File Name Relationship Healthcare Agent [facility] p Communication Carolyn Goldmandrewnabila Adult Child Health Care Agent Care Teams Medical Reviewer Relationship Specialty Start Date End Date Carmen Sifuentes MD [address] [place] [address] PCP - General Family Medicine 07/16/17 documented as of this encounter
--- OUTSIDE RECORDS SUMMARY | 2023-05-17 12:09 | External Medical Summary | Summary of Care ---
Author Name Unknown Organization [facility] Address [address] [place] [address] Phone [phone] Care Team Providers Care Ore Crushing Dust Collector Name Role Phone Carmen Sifuentes MD Primary Care Provider +1- [phone] Reason for Referral * Medication Prior Authorization - Pending Review Specialty Diagnoses / Procedures Referred By Contac t Referred To Contact Diagnoses Lumbar spondylosis Carmen Sifuentes MD [address] [place] [address] Referral ID Status Reason Start Date Expiration Date V isits Requested Visits Authorized [id number] Pending Review [id number] Reason for Visit * Reason Onset Date Comments Medication Refill 04/01/2023 Encounter Details Date Type Department Care Team Description 04/01/2023 Refill [facility] [address] [place] [phone] Carmen Sifuentes MD [address] [place] [address] Bipolar I disorder, most recent episode depressed, moderate (HCC); Lumbar spondylosis Allergies Active Allergy Reactions Severity Noted Date [...] Active venlafaxine XR (EFFEXOR XR) 150 MG [id number]:Dep ression Take 1 Cap by mouth daily. With food. 30 Cap 5 7 Active Additional Information Patient taking differently: 225 mgOral Daily(AM),Taking a total of 225 mg, Indications: Takes 225 mg total every morning with food (150 mg tab + 75 mg tab), Reported on 03/03/2023 Blood Glucose Monitoring Suppl (CaterCow-PAAY GLUCOMETER) w/Device KITIndications:Unco ntrolled type 2 diabetes mellitus without complication, without long-term current use of insulin Use as directed. Use as directed once daily 1 Kit 0 8 Active Blood Glucose Monitoring Suppl (popAD VERIO) w/Device KIT Use as directed. Use [...] the morning. 90 Tablet 3 2 Active Atorvastatin Calcium 40 MG Oral Tablet (Lipitor)Indication s:Dyslipidemia, goal LDL below 70 Take by mouth 1 Tablet in the morning. 90 Tablet 3 2 Active Spiriva Respimat 2.5 MCG/ACT Inhalation Aerosol Solution (Tiotropium [place] Monohydrate) Inhale by mouth 2 Puffs in [...] 2 Active Vitamin D (Ergocalciferol) 1.25 MG (26022 UT) Oral Capsule (Drisdol)Indication s:Vitamin D deficiency TAKE ONE CAPSULE BY MOUTH WEEKLY 12 Capsule 3 2 Active Benzonatate 100 MG Oral Capsule (Tessalon Perles) TAKE ONE CAPSULE BY MOUTH THREE TIMES DAILY NEEDED for cough. do not cut, crush or chew 50 Capsule 0 3 Active AIRS Disposable Nebulizer Kit Use as [...] the morning. Every morning.. 90 Capsule 3 3 Active lamoTRIgine 25 MG Oral Tablet (LaMICtal) 1 Tablet. Taking 2 at bedtime and 1 in morning 0 3 Active Famotidine 40 MG Oral Tablet (Pepcid)Indications :Gastroesophageal reflux disease with esophagitis without hemorrhage Take 1 Tablet by mouth in the morning. 90 Tablet 1 3 Active Albuterol Sulfate HFA 108 (90 [...] 90 Tablet 1 3 Active UltiCare Pen [place] 31G X 5 MM (Insulin Pen Needle) use TWICE DAILY 200 Each 3 3 Active Torsemide 20 MG Oral Tablet (Demadex)Indication s:Atherosclerotic heart disease of [place] coronary artery with other forms of angina [...] bedtime 180 Tablet 3 3 Active Nystatin 307554 UNIT/GM External Powder (Nystop)Indications :Candidal intertrigo Apply topically to affected area 3 times a day. Apply to right breast until rash resolved. 30 g 0 3 Active Sucralfate 1 GM Oral Tablet (Carafate)Indicatio ns:Gastroesophageal reflux disease with esophagitis without hemorrhage TAKE 1 TABLET BY MOUTH EVERY MORNING 90 Tablet 0 07/14/202 3 Active Tawny Erickson In Vitro Strip (Glucose Blood)Indications:T ype 2 diabetes mellitus with diabetic neuropathy, with long-term current use of insulin (HCC) use to test blood sugar 3 times daily 300 Strip 3 3 Active Nystatin 751011 UNIT/ML Mouth/Throat Suspension SWISH AND SWALLOW 5ML [...] TWICE DAILY 60 Capsule 5 3 Active Methenamine Hippurate 1 GM Oral Tablet (Hiprex)Indications :Recurrent UTI TAKE ONE TABLET BY MOUTH IN THE MORNING AND ONE TABLET BEFORE BEDTIME 60 Tablet 0 3 Active Oxybutynin Chloride ER 10 MG Oral Tablet Extended Release 24 Hour (Ditropan XL) TAKE 1 TABLET BY MOUTH EVERY MORNING 90 Tablet 0 3 Active Additional Information Patient taking differently: Taking [...] Pain, Severe. 30 Tablet 0 3 Active Morphine Sulfate ER 15 MG Oral Tablet Extended Release (Ms Contin)Indications: Lumbar spondylosis Take 1 Tablet by mouth at bedtime as needed for Pain, Severe. 30 Tablet 0 3 04/01/20 23 Discontinu ed(Refill) clonazePAM 0.5 MG Oral Tablet (KlonoPIN)Indicatio ns:Bipolar I disorder, most recent episode depressed, moderate (HCC) TAKE ONE TABLET BY MOUTH THREE TIMES DAILY 90 Tablet 0 3 04/01/20 23 Discontinu ed(Refill) documented as of this [...] mg daily Atherosclerotic heart diseas e of [place] coronary artery with other forms of angina pectoris 11/15/2021 Last Assessment & Plan: Stable. No angina -continue toprol, ASA and statin Seasonal allergies 11/15/2021 Recurrent UTI 10/07/2021 Last Assessment & Plan: Followed by urology Pt is supposed to be on methenamine--will need to clarify with dgt that she is giving this. 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/2014 lumpia wrapper maker current use of anticoagulant therapy 1 08/18/2005 [...] encounter Miscellaneous Notes * Telephone Encounter - Suha Deras CPhT - 04/08/2023 8:17 AM EDT Released Rx to the pharmacy. Thank you, Suha Deras, Registered Art Therapist I Centralized Clinical Pharm[facility] Services (Formerly Telepharmacy) 04/08/2023, 8:17 AM * Telephone Encounter - Carmen Sifuentes MD - 04/07/2023 5:48 PM EDTSigned Prescriptions: Disp Refills clonazePAM 0.5 MG Oral Tablet (KlonoPIN) 90 Tab*0 Sig: TAKE ONE TABLET BY MOUTH THREE TIMES DAILYAuthorizing Provider: CARMEN SIFUENTES Morphine Sulfate ER 15 MGOral Tablet Exte*30 Tab*0 Sig: Take 1 Tablet by mouth at bedtime as needed for Pain, Severe.Authorizing Provider: CARMEN SIFUENTES * Telephone Encounter - Radha Jarquin LPN - 04/05/2023 2:13 PM EDTPending Prescriptions: Disp Refills clonazePAM 0.5 MG Oral Tablet (KlonoPIN) 90 Tab*0 Sig: TAKE ONE TABLET BY MOUTH THREE TIMES DAILY Morphine Sulfate ER 15 MG Oral Tablet Exte*30 Tab*0 Sig: Take 1 Tablet by mouth at bedtime as needed for Pain, Severe. * Telephone Encounter - Carmen Sifuentes MD - 04/02/2023 1:42 PM EDTPending Prescriptions: Disp Refills clonazePAM 0.5 MG Oral Tablet (KlonoPIN) 90 Tab*0 Sig: TAKE ONE TABLET BY MOUTH THREE TIMES DAILY Morphine Sulfate ER 15 MG Oral Tablet Exte*30 Tab*0 Sig: Take 1 Tablet by mouth at bedtime as needed for Pain, Severe. * Telephone Encounter - Carmen Sifuentes MD - 04/02/2023 1:41 PM EDT Med list indicates that pt is now just taking 1/2 tablet three times per day of the clonazepam. Please check with her to see if this is correct. Will change rx. * Telephone Encounter - Gianna Davalos [facility] - 04/02/2023 11:09 AM EDTPending Prescriptions: Disp Refills clonazePAM 0.5 MG Oral Tablet (KlonoPIN) 90 Tab*0 Sig: TAKE ONE TABLET BY MOUTH THREE TIMES DAILY Morphine Sulfate ER 15 MG Oral Tablet Exte*30 Tab*0 Sig: Take 1 Tablet by mouth at bedtime as needed for Pain, Severe. * Telephone Encounter - Gianna Davalos [facility] - 04/02/2023 11:08 AM EDT I have reviewed the patients controlled substance dispensing history in the Prescription Drug Monitoring Program in compliance with the [facility] regulations before prescribing a controlled substance. PDMP checked on 04/02/2023. Pending Prescriptions: Disp Refills clonazePAM 0.5 MG Oral Tablet (KlonoPIN) 90 Tab*0 Sig: TAKE ONE TABLET BY MOUTH THREE TIMES DAILY Morphine Sulfate ER 15 MG Oral Tablet Ext*30 Tab*0 Sig: Take 1 Tablet by mouth at bedtime as needed for Pain, Severe. Last Visit: 02/24/2023 (in office), 03/06/2022 (telemedicine) Next Visit: 04/28/2023 Date medication was last filled: 12/26/22 (Clonazepam), 01/29/23 (Morphine) Date medication is due for refill: 01/24/23, 02/28/23 [facility]acy: [id number] Is this request for a controlled substance? Yes and Urine Drug Screen Not completed Toxicology results: No results found. However, due to the size of the patient record, not all encounters were searched.Please check Results Review for a complete set of results. Please approve if appropriate. Thank You, Gianna Davalos [facility] Clinical Pharmacist Centralized Clinical Pharmacy Services (CCPS) (formerly Telepharmacy) [phone] 04/02/2023, 11:08 AM * Telephone Encounter - Yarelis Vinson CPhT - 04/01/2023 2:11 PM EDT Did you pend patient's preferred pharmacy and medication before forwarding?yes Pharmacy: [id number] Pending Prescriptions: Disp Refills clonazePAM 0.5 MG Oral Tablet (KlonoPIN) 90 Tab*0 Sig: TAKE ONE TABLET BY MOUTH THREE TIMES DAILY Strength: 0.5 mg Morphine Sulfate ER 15 MG Oral Tablet Ext*30 Tab*0 Sig: Take 1 Tablet by mouth at bedtime as needed for Pain, Severe. Last Visit: 02/24/2023 (in office), 03/06/2022 (telemedicine) Next Visit: 04/28/2023 If no future appointments scheduled, and last appointment is greater than a year ago, please schedule patient for a follow-up appointment Last date the medication was ordered: 01/27/23 Is this request for a controlled substance?Yes, What was the last refill date 01/27/23 w/ quantity 90, 30 and dosage 15 MG, 0.5 MG and Urine Drug Screen Not completed Urine [...] Team Description 04/09/2023 Office Visit Urology Alfredo Panda MD [address] [place] [address] 04/23/2023 Office Visit Infectious Disease Kendall Bell, DO [address] [place] [address] 04/28/2023 Office Visit Family Medicine Carmen Sifuentes MD [address] [place] [address] 05/05/2023 Office Visit Cardiology Sobia Brewster PA-C [address] [place] [address] 05/09/2023 Office Visit Gastroenterology Wendy Frias DO [address] [place] [address] 05/12/2023 Telemedicine [facility] Lashay Blevins PA-C [address] [place] [address] Beverly Lozoya, [facility] [address] [place] [address] [place] [address] Scheduled Procedures Name Priority [...] Additional history exists CKD PHOS USE SMARTSET 48192 10/24/202310/05, 02/18/2022, 02/17/2022, Additional history exists TSH 02/14/2024 02/13/2023, 10/05, 02/28/2022, Additional history exists CKD HGB USE SMARTSET 71771 02/19/202402/18, 02/11/2023, 02/07/2023, Additional history exists Colonoscopy [...] this encounter Medical Devices Implanted Type Area Manager Metrology Device Identifier Shelf Expiration Date Model / Serial / Lot Sut Bob 6 [id number] - [id number] Implanted:Qty: 1 on 02/15/2011 at [place] [facility] [place]A: Chest DO NOT USE 07/21/2015 [id number] / / [id number] documented as of this encounter Visit Diagnoses Diagnosis Bipolar I disorder, most recent episode depressed, moderate (HCC) Bipolar I disorder, most recent episode (or current) depressed, moderate Lumbar spondylosis Lumbosacral spondylosis without myelopathy documented in this encounter Advance Directives Documents on File Type Date Recorded Patient Nurse Supervisor Expl anation POL 05/06/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 Question Answer Comments Discussion of Advance Directives occurred with: Patient Does the patient have a Living Will? No Does the patient have Health Care Power of Contracts Attorney? No Code Status History Code Status Date [...] the patient have Health Care Power of Contracts Attorney? No Full Code 02/01/2010 4:02 PM 02/02/2010 4:09 PM This order reflects the patients wishes and were consensually agreed upon. Question Answer Comments Discussion of Advance Directives occurred with: Not Discussed Does the patient have a Living Will? No Does the patient have Health Care Power of Contracts Attorney? No Healthcare Agents on File Name Relationship Healthcare Agent [facility] p Communication Carolyn Elio Adult Child Health Care Agent Care Teams Ore Crushing Dust Collector Relationship Specialty Start Date End Date Carmen Sifuentes MD [address] [place] [address] PCP - General Family Medicine 07/16/17 documented as of this encounter
--- OUTSIDE RECORDS SUMMARY | 2023-05-17 12:09 | External Medical Summary | Summary of Care ---
Author Name Unknown Organization [facility] Address [address] [place] [address] Phone [phone] Care Team Providers Care Newsstand Vendor Name Role Phone Carmen Sifuentes MD Primary Care Provider +1- [phone] Reason for Referral * Medication Prior Authorization - Pending Review Specialty Diagnoses / Procedures Referred By Contac t Referred To Contact Diagnoses Lumbar spondylosis Carmen Sifuentes MD [address] [place] [address] Referral ID Status Reason Start Date Expiration Date V isits Requested Visits Authorized [id number] Pending Review 999 473 Reason for Visit * Reason Onset Date Comments Medication Refill 04/01/2023 Encounter Details Date Type Department Care Team Description 04/01/[address] [facility] [address] [place] [phone] Carmen Sifuentes MD [address] [place] [address] Bipolar I disorder, most recent episode depressed, moderate (HCC); Lumbar spondylosis Allergies Active Allergy Reactions Severity Noted Date Comments Propoxyphene Hcl Rash Low 10/29/2010 Fentanyl Diarrhea Low 04/26/2010 anxiety Methocarbamol Medium 10/05/2020 Other reaction(s): Delirium Methocarbamol Low 04/15/2007 Zolpidem Low 10/05/2020 Other reaction(s): Confusion documented as of this encounter (statuses as of 04/07/2023) Medications Medication Sig Dispensed Refills Start Date End Date Status ARIPiprazole (ABILIFY) 2 MG Tablet Take 1 Tablet by mouth in the morning. 0 6 Active venlafaxine XR (EFFEXOR XR) 150 MG [id number]:Dep ression Take 1 Cap by mouth daily. With food. 30 Cap 5 7 Active Additional Information Patient taking differently: 225 mgOral Daily(AM),Taking a total of 225 mg, Indications: Takes 225 mg total every morning with food (150 mg tab + 75 mg tab), Reported on 03/03/2023 Blood Glucose Monitoring Suppl ([employer] GLUCOMETER) w/Device KITIndications:Unco ntrolled type 2 diabetes mellitus without complication, without long-term current use of insulin Use as directed. Use as directed once daily 1 Kit 0 8 Active Blood Glucose Monitoring Suppl ([employer] VERIO) w/Device KIT Use as directed. Use [...] Respimat 2.5 MCG/ACT Inhalation Aerosol Solution (Tiotropium [place] Monohydrate) Inhale by mouth 2 Puffs in [...] 2 Active Vitamin D (Ergocalciferol) 1.25 MG (20996 UT) Oral Capsule (Drisdol)Indication s:Vitamin D deficiency [...] 90 Tablet 1 3 Active UltiCare Pen [place] 31G X 5 MM (Insulin Pen Needle) use TWICE DAILY 200 Each 3 3 Active Torsemide 20 MG Oral Tablet (Demadex)Indication s:Atherosclerotic heart disease of [place] coronary artery with other forms of [...] bedtime 180 Tablet 3 3 Active Nystatin 111026 UNIT/GM External Powder (Nystop)Indications :Candidal intertrigo Apply [...] daily 300 Strip 3 3 Active Nystatin 308586 UNIT/ML Mouth/Throat Suspension SWISH AND SWALLOW 5ML [...] as of this encounter (statuses as of 04/07/2023) Active Problems Problem Noted Date Medical home patient encounter 3 Hypertensive heart and kidne y disease with chronic diastolic congestive heart failure and stage 3a chronic kidney disease 12/28/2021 Last Assessment & Plan: Euvolemic, BP stable EF 55% 09/25 GFR 69 02/25 -Continue Torsemide 20 mg BID, Spironolactone 25 mg BID, Tropol XL 50 mg daily Atherosclerotic heart diseas e of [place] coronary artery with other forms of angina pectoris 11/15/2021 Last Assessment & Plan: Stable. No angina -continue toprol, ASA and statin Seasonal allergies 11/15/2021 Recurrent UTI 10/07/2021 Last Assessment & Plan: Followed by urology Pt is supposed to be on methenamine--will need to clarify with dgt that she is giving this. 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 * Telephone Encounter - Gianna Davalos [facility] - 04/02/2023 11:09 AM EDTPending Prescriptions: Disp Refills clonazePAM 0.5 MG Oral Tablet (KlonoPIN) 90 Tab*0 Sig: TAKE ONE TABLET BY MOUTH THREE TIMES DAILY Morphine Sulfate ER 15 MG Oral Tablet Exte*30 Tab*0 Sig: Take 1 Tablet by mouth at bedtime as needed for Pain, Severe. * Telephone Encounter - Gianna Davalos [facility] - 04/02/2023 11:08 AM EDT I have reviewed the patients controlled substance dispensing history in the Prescription Drug Monitoring Program in compliance with the [facility] regulations before prescribing a controlled substance. PDMP [...] refill: 01/24/23, 02/28/23 [facility]acy: [id number] [id number] [address] Is this request for a controlled substance? Yes and Urine Drug Screen Not completed Toxicology results: No results found. However, due to the size of the patient record, not all encounters were searched.Please check Results Review for a complete set of results. Please approve if appropriate. Thank You, Gianna Davalos [facility] Clinical Pharmacist Centralized Clinical Pharmacy Services (CCPS) (formerly Telepharmacy) [phone] 04/02/2023, 11:08 AM * Telephone Encounter - Yarelis Ramsay Vinson, [facility] - 04/01/2023 2:11 PM EDT Did you pend patient's preferred pharmacy and medication before forwarding?yes Pharmacy: [id number] [id number] Pending Prescriptions: [...] complete set of results. Patient Phone Numbers [employer] [phone] Labs: Lab Results Component Value Date/Time CREAT [...] Panda MD [address] [place] [address] 04/23/2023 Office Visit Infectious Disease Kendall Bell, DO [address] [place] [address] 04/28/2023 Office Visit Family Medicine aCrmen Sifuentes MD [address] [place] [address] 05/05/2023 Office Visit Cardiology Sobia Brewster PAArleen [address] [place] [address] 05/09/2023 Office Visit Gastroenterology Wendy Frias DO [address] [place] [address] 05/12/2023 Telemedicine [facility] Lashay Blevins PA-C [address] [place] [address] Beveryl Lozoya, [address] [place] [address] Scheduled Procedures Name Priority [...] Additional history exists CKD PHOS USE SMARTSET 23444 10/24/202310/05, 02/18/2022, 02/17/2022, Additional history exists TSH 02/14/2024 02/13/2023, 10/05, 02/28/2022, Additional history exists CKD HGB USE SMARTSET 25986 02/19/202402/18, 02/11/2023, 02/07/2023, Additional history exists Colonoscopy [...] this encounter Medical Devices Implanted Type Area Button Spindler Device Identifier Shelf Expiration Date Model / Serial / Lot Sut Steel 6 [id number] - [id number] Implanted:Qty: 1 on 02[place]15[place]2011 [place] [facility] [place] Chest DO NOT USE 07/21/2015 [id number] / / [id number] documented as of this encounter Visit Diagnoses Diagnosis Bipolar I disorder, most recent episode depressed, moderate (HCC) Bipolar I disorder, most recent episode (or current) depressed, moderate Lumbar spondylosis Lumbosacral spondylosis without myelopathy documented in this encounter Advance Directives Documents on File Type Date Recorded 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 Question Answer Comments Discussion of Advance Directives occurred with: Patient Does the patient have a Living Will? No Does the patient have Health Care Power of Lead Generator? No Code Status History Code Status Date [...] the patient have Health Care Power of Lead Generator? No Full Code 02/01/2010 4:02 PM 02/02/2010 4:09 PM This order reflects the patients wishes and were consensually agreed upon. Question Answer Comments Discussion of Advance Directives occurred with: Not Discussed Does the patient have a Living Will? No Does the patient have Health Care Power of Lead Generator? No Healthcare Agents on File Name Relationship Healthcare Agent [facility] Communication Carolyn Ballard Adult Child Health Care Agent Care Teams Newsstand Vendor Relationship Specialty Start Date End Date Carmen Sifuentes MD [address] [place] [address] PCP - General Family Medicine 07/16/17 documented as of this encounter
--- OUTSIDE RECORDS SUMMARY | 2023-05-17 12:09 | External Medical Summary | Summary of Care ---
Author Name Unknown Organization [facility] Address [address] [place] [address] Phone [phone] Care Team Providers Care Bulk Folder Name Role Phone Carmen Sifuentes MD Primary Care Provider [phone]- [phone] Reason for Visit * Reason Comments eRx-Medication Refill Encounter Details Date Type Department Care Team Description 03/24/2023 Refill [facility] [address] [place] [address] Carmen Sifuentes MD [address] [place] [address] Allergies Active Allergy Reactions Severity Noted Date Comments Propoxyphene Hcl Rash Low 10/29/2010 Fentanyl Diarrhea Low 04/26/2010 anxiety Methocarbamol Medium 10/05/2020 Other reaction(s): Delirium Methocarbamol Low 04/15/2007 Zolpidem Low 10/05/2020 Other reaction(s): Confusion documented as of this encounter (statuses as of 03/24/2023) Medications Medication Sig Dispensed Refills Start Date End Date Status ARIPiprazole (ABILIFY) 2 MG Tablet Take 1 Tablet by mouth in the morning. 0 07/11/19 16 Active venlafaxine XR (EFFEXOR XR) 150 MG [id number]:De pression Take 1 Cap by mouth daily. With food. 30 Cap 5 09/02/19 17 Active Additional Information Patient taking differently: 225 mgOral Daily(AM),Taking a total of 225 mg, Indications: Takes 225 mg total every morning with food (150 mg tab + 75 mg tab), Reported on 03/03/2023 Blood Glucose Monitoring Suppl (Vidtel-Ciralight Global GLUCOMETER) w/Device KITIndications:Unc ontrolled type 2 diabetes mellitus without complication, without long-term current use of insulin Use as directed. Use as directed once daily 1 Kit 0 11/19/19 18 Active Blood Glucose Monitoring Suppl (Netlift) w/Device KIT Use as directed. Use as directed. 1 Kit 0 11/01/19 19 Active Spacer/Aero-Holdin g Chambers WISAM Use with inhaler. Wheezing/bronchiti s. 1 Device 0 04/08/20 19 Active Bridg Delica Lancets 33G MISC USE UP TO FOUR TIMES A DAY Dx:E11.4 100 Each 5 09/30/19 20 Active Lancet Devices (CoolstuffTOUCH DELICA LANCING DEV) MISC Use four times [...] Solution (Constulose)Indica tions:Chronic liver disease and cirrhosis (HCC) TAKE 45 ML BY MOUTH TWICE DAILY [...] Respimat 2.5 MCG/ACT Inhalation Aerosol Solution (Tiotropium [place] Monohydrate) Inhale by mouth 2 Puffs in [...] 22 Active Vitamin D (Ergocalciferol) 1.25 MG (36160 UT) Oral Capsule (Drisdol)Indicatio ns:Vitamin D deficiency TAKE ONE CAPSULE BY MOUTH WEEKLY 12 Capsule 3 06/19/20 22 Active Benzonatate 100 MG Oral Capsule (Tessalon Perles) TAKE ONE CAPSULE BY MOUTH THREE TIMES DAILY NEEDED for cough. do not cut, crush or chew 50 Capsule 0 07/10/19 23 Active AIRS Disposable Nebulizer Kit Use as directed 1 Kit 0 07/17/19 Active Ipratropium-Albute rol 0.5-2.5 (3) MG/3ML Inhalation [...] ions:GONZALEZ (nonalcoholic steatohepatitis),C hronic liver disease and cirrhosis (HCC),Hepatic encephalopathy (HCC) TAKE 1 TABLET BY MOUTH TWICE DAILY 60 Tablet 5 12/17/19 23 Active Montelukast Sodium 10 MG Oral Tablet (Singulair)Indicat ions:Nasal sinus congestion,PND (post-nasal drip) TAKE 1 TABLET BY MOUTH ONCE DAILY 90 Tablet 1 12/20/19 23 Active UltiCare Pen [place] 31G X 5 MM (Insulin Pen Needle) use TWICE DAILY 200 Each 3 12/24/19 23 Active Torsemide 20 MG Oral Tablet (Demadex)Indicatio ns:Atherosclerotic heart disease of [place] coronary artery with other forms of angina pectoris (HCC),Hypertensive heart disease with chronic diastolic congestive heart failure (HCC) TAKE 1 TABLET BY MOUTH EVERY MORNING. MAY TAKE 1 ADDITIONAL TABLET NEEDED FOR SWELLING. 90 Tablet 1 12/25/19 23 Active Spironolactone 50 MG Oral Tablet (Aldactone)Indicat ions:GONZALEZ (nonalcoholic steatohepatitis),P ortal hypertension (HCC),Chronic liver disease and cirrhosis (HCC),Portal hypertensive gastropathy (HCC) Take 1 tablet by mouth in the morning and before bedtime 180 Tablet 3 01/17/20 23 Active Nystatin 086607 UNIT/GM External Powder (Nystop)Indication s:Candidal intertrigo Apply [...] 300 Strip 3 01/17/20 23 Active Nystatin 401259 UNIT/ML Mouth/Throat Suspension SWISH AND SWALLOW 5ML [...] Additional Information Patient not taking.Reported on 02/24/2023 Morphine Sulfate ER 15 MG Oral Tablet Extended Release (Ms Contin)Indications :Lumbar spondylosis Take 1 Tablet by mouth at bedtime as needed for Pain, Severe. 30 Tablet 0 01/28/20 23 Active clonazePAM 0.5 MG Oral Tablet (KlonoPIN)Indicati ons:Bipolar I disorder, most recent episode depressed, moderate (HCC) TAKE ONE TABLET BY MOUTH THREE TIMES DAILY 90 Tablet 0 01/28/20 23 Active Additional Information Patient taking differently: Taking 1/2 tablet TID, Reported on 03/03/2023 Vitamin C 500 MG Oral Tablet (Ascorbic Acid)Indications:R ecurrent UTI Take 1 Tablet by mouth in the morning and 1 Tablet before bedtime. 60 Tablet 5 01/29/20 23 Active Gabapentin 300 MG Oral Capsule (Neurontin)Indicat ions:Lumbar spondylosis TAKE 1 CAPSULE BY MOUTH TWICE DAILY 60 Capsule 5 02/11/20 23 Active Methenamine Hippurate 1 GM Oral Tablet (Hiprex)Indication s:Recurrent UTI TAKE ONE TABLET BY MOUTH IN THE MORNING AND ONE TABLET BEFORE BEDTIME 60 Tablet 0 02/11/20 23 Active Oxybutynin Chloride ER 10 MG Oral Tablet Extended Release 24 Hour (Ditropan XL) TAKE 1 TABLET BY MOUTH EVERY MORNING 90 Tablet 0 02/14/20 23 Active Additional Information Patient taking differently: Taking 1/2 tablet, Reported on 03/03/2023 Nitrofurantoin Monohyd Macro 100 MG Oral Capsule (Macrobid) Take 1 Capsule by mouth in the morning and 1 Capsule before bedtime. Do all this for 7 days. With food until gone. 14 Capsule 0 03/18/20 23 023 Active Polyethylene Glycol 3350 17 GM/SCOOP Oral [...] torsemide 30 Tablet 1 03/24/20 23 Active Potassium Chloride Mag ER 20 MEQ Oral Tablet Extended Release TAKE 1 TABLET BY MOUTH EVERY MORNING. use when taking additional torsemide 30 Tablet 1 01/29/20 23 023 Discontinued documented as of this encounter (statuses as of 03/24/2023) Active Problems Problem Noted Date Medical home patient encounter 3 Hypertensive heart and kidne y disease with chronic diastolic congestive heart failure and stage 3a chronic kidney disease 12/28/2021 Last Assessment & Plan: Euvolemic, BP stable EF 55% 09/25 GFR 69 02/25 -Continue Torsemide 20 mg BID, Spironolactone 25 mg BID, Tropol XL 50 mg daily Atherosclerotic heart diseas e of [place] coronary artery with other forms of angina pectoris 11/15/2021 Last Assessment & Plan: Stable. No angina -continue toprol, ASA and statin Seasonal allergies 11/15/2021 Recurrent UTI 10/07/2021 Last Assessment & Plan: Followed by urology Pt is supposed to be on methenamine--will need to clarify with dgt that she is giving this. 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/2014 [facility] current use of anticoagulant therapy 1 08/18/2005 [...] as of this encounter (statuses as of 03/24/2023) Immunizations Name Administration Dates Next Due COVID-19 mRNA, LNP-s, No Pre serve, 2-Dose Series (Moderna) 06/10/2021,08/29/2020,08/01/2020 Pneumococcal Conjugate Vacc, 13 Valent (Prevnar) 02/14/2017 Pneumococcal Polysaccharide PPV23 (Pneumovax) 02/06/2016,06/26/2011,06/04/2006,06/26 Season Influenza, Quad, PF, Adjuvanted, 65+ Yrs, IM (FLUAD) 05/22/2020 Seasonal Influenza Virus Vac cine, Unspecified Formulation 03/14/2022,04/10/2021,05/22/2020,04/12,05/08/2018,07/16/2017,03/21/2015 ,04/28/2013,04/09/2012,06/11/2011,03/08,04/10/2009,04/06/2008, 7,06/04/2006 Seasonal Influenza, PF, 6 mo ns & Above, IM , (Flulaval) 04/12/2019,05/08/2018,07/16/2017 Seasonal Influenza, Quadriva lent Hd (Fluzone Hd) [...] Telephone Encounter - Carmen Sifuentes MD - 03/24/2023 5:31 PM EDTSigned Prescriptions: Disp Refills Potassium Chloride Mag ER 20 MEQ Oral Tab*30 Tab*1 Sig: take 1 tablet by mouth every morning. use when taking additional torsemideAuthorizing Provider: CARMEN SIFUENTES * Telephone Encounter - Vincent Zaragoza [facility] - 03/24/2023 5:30 PM EDTPending Prescriptions: Disp Refills Potassium Chloride Mag ER 20 MEQ Oral Tab*30 Tab*1 Sig: take 1 tablet by mouth every morning. use when taking additional torsemide * Telephone Encounter - Vincent Zaragoza RPh - 03/24/2023 5:29 PM EDT Pending Prescriptions: Disp Refills Potassium Chloride Mag ER 20 MEQ Oral Tab*30 Tab*1 Sig: take 1 tablet by mouth every morning. use when taking additional torsemide Last Visit: 02/24/2023 (in office), 03/06/2022 (telemedicine) Next Visit: 04/28/2023 If no future appointments scheduled, and last appointment is greater than a year ago, please schedule patient for a follow-up appointment Last date the medication was ordered: 01-28-23 Pharmacy: [id number] Is this request for a controlled substance?No [...] Encounters Date Type Specialty Care Team Description 04/03/2023 Telemedicine [facility] Lashay Blevins PA-C [address] [place] [address] Beverly Lozoya [address] [place] [address] 04/09/2023 Office Visit Urology Alfredo Panda MD [address] [place], [place] [phone] 04/23/2023 Office Visit Infectious Disease Kendall Bell, DO [address] [place] [address] 04/28/2023 Office Visit Family Medicine Carmen Sifuentes MD [address], [place] [phone] 05/05/2023 Office Visit Cardiology Sobia Brewster PA-C [address] [place] [address] 05/09/2023 Office Visit Gastroenterology Wendy Frias DO [address] [place] [address] Scheduled Procedures Name Priority Associated Diagnoses Date/Ti [...] Additional history exists CKD PHOS USE SMARTSET 31716 10/24/202310/05, 02/18/2022, 02/17/2022, Additional history exists TSH 02/14/2024 02/13/2023, 10/05, 02/28/2022, Additional history exists CKD HGB USE SMARTSET 13534 02/19/202402/18, 02/11/2023, 02/07/2023, Additional history exists Colonoscopy 05/20/2024 05/20/2014 Colorectal Cancer Screening 05/20/2024 DTaP,Tdap,and Td Vaccines (2 - Td or Tdap) 06/27/2025 06/27/2015 Pneumococcal Vaccine: 65+ Years Completed 02/14/2017, 02/06/2016, 06/26/2011, Additional history exists GARDASIL-HPV IMMUNIZATION SERIES Aged Out No longer eligible based on patient's age to complete this topic MENINGOCOCCAL (MENACTRA/MENVEO) Aged Out No longer eligible based on patient's age to complete this topic documented as of this encounter Medical Devices Implanted Type Area Research Chemist Device Identifier Shelf Expiration Date Model / Serial / Lot Jenna Denny [id number] - [id number] Implanted:Qty: 1 on 02/15/2011 at OR [facility] [place] N/A: Chest DO NOT USE 07/21/2015 [id number] / / [id number] documented as of this encounter Advance Directives Documents on File Type Date Recorded 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 Question Answer Comments Discussion of Advance Directives occurred with: Patient Does the patient have a Living Will? No Does the patient have Health Care Power of Animal Nurse? No Code Status History Code Status Date [...] the patient have Health Care Power of Animal Nurse? No Full Code 02/01/2010 4:02 PM 02/02/2010 4:09 PM This order reflects the patients wishes and were consensually agreed upon. Question Answer Comments Discussion of Advance Directives occurred with: Not Discussed Does the patient have a Living Will? No Does the patient have Health Care Power of Animal Nurse? No Healthcare Agents on File Name Relationship Healthcare Agent [facility] Communication Carolyn Ballard Adult Child Health Care Agent Care Teams Bulk Folder Relationship Specialty Start Date End Date Carmen Sifuentes MD [address] [place] [address] PCP - General Family Medicine 07/16/17 documented as of this encounter
--- OUTSIDE RECORDS SUMMARY | 2023-05-17 12:09 | External Medical Summary ---
Author Name Unknown Address Unknown Organization K01:[facility] [place] - [address] [place] [id number] Laboratory Report Ordering Provider Test Date Status LETTY UMANZOR 04/03/2023 16:49:15 Final Observation Date Value Abnormality Reference (Units) Status Bacteria identified in Specimen by Culture 04/03/2023 16:49:15 No significant growth Final Test: Culture, Urine, Quanti tative
Specimen Source: Urine, Catheter
Specimen Type: Urine
Specimen Date: 04/03/2023 4:49 PM
Result Date: 04/04/2023 4:44 PM
Result Status: Final result
Resulting Lab: [facility] [place] [facility]
[address]
[place] [address]

CULTURE

No significant growth

null Performing Location [facility] [place] - [address] [facility] [address]
--- OUTSIDE RECORDS SUMMARY | 2023-05-17 12:09 | External Medical Summary | Summary of Care ---
Author Name Unknown Organization [facility] Address [address] [place] [address] Phone [phone] Care Team Providers Care Baker Biscuit Name Role Phone Brian Domínguez MD Primary Care Provider [phone]- [phone] Reason for Visit * Reason Comments Outpatient Testing Encounter Details Date Type Department Care Team Description 04/03/2023 Laboratory Laboratory, [facility] [address] [facility] [id number] [place], Specimen Drop [facility] [address] [facility] [address] Bad odor of urine Allergies Active Allergy Reactions Severity Noted Date Comments Propoxyphene Hcl Rash Low 10/29/2010 Fentanyl Diarrhea Low 04/26/2010 anxiety Methocarbamol Medium 10/05/2020 Other reaction(s): Delirium Methocarbamol Low 04/15/2007 Zolpidem Low 10/05/2020 Other reaction(s): Confusion documented as of this encounter (statuses as of 04/03/2023) Medications Medication Sig Dispensed Refills Start Date End Date Status ARIPiprazole (ABILIFY) 2 MG Tablet Take 1 Tablet by mouth in the morning. 0 2015 Active venlafaxine XR (EFFEXOR XR) 150 MG [id number]:Dep ression Take 1 Cap by mouth daily. With food. 30 Cap 5 09/02/2016 Active Additional Information Patient taking differently: 225 mgOral Daily(AM),Taking a total of 225 mg, Indications: Takes 225 mg total every morning with food (150 mg tab + 75 mg tab), Reported on 03/03/2023 Blood Glucose Monitoring Suppl (D-Adcade GLUCOMETER) w/Device KITIndications:Unco ntrolled type 2 diabetes mellitus without complication, without long-term current use of insulin Use as directed. Use as directed once daily 1 Kit 0 11/18/2017 Active Blood Glucose Monitoring Suppl (Social RealityIO) w/Device KIT Use as directed. Use as directed. 1 Kit 0 10/31/2018 Active Spacer/Aero-Holding Chambers WISAM Use with inhaler. Wheezing/bronchitis . 1 Device 0 04/08/2019 Active WinFreeCandy Del[employer]or [employer] Lancets 33G MISC USE UP TO FOUR TIMES A DAY Dx:E11.4 100 Each 5 09/30/2019 Active Lancet Devices (Achievo(R) CorporationUCH DELICA LANCING DEV) MISC Use four times [...] Respimat 2.5 MCG/ACT Inhalation Aerosol Solution (Tiotropium [place] Monohydrate) Inhale by mouth 2 Puffs in [...] 06/05/2022 Active Vitamin D (Ergocalciferol) 1.25 MG (24923 UT) Oral Capsule (Drisdol)Indication s:Vitamin D deficiency [...] 90 Tablet 1 12/19/2022 Active UltiCare Pen [place] 31G X 5 MM (Insulin Pen Needle) use TWICE DAILY 200 Each 3 12/23/2022 Active Torsemide 20 MG Oral Tablet (Demadex)Indication s:Atherosclerotic heart disease of [place] coronary artery with other forms of angina [...] bedtime 180 Tablet 3 01/16/2023 Active Nystatin 237680 UNIT/GM External Powder (Nystop)Indications :Candidal intertrigo Apply [...] daily 300 Strip 3 01/16/2023 Active Nystatin 997690 UNIT/ML Mouth/Throat Suspension SWISH AND SWALLOW 5ML [...] needed for Pain, Severe. 30 Tablet 0 01/27/2023 Active clonazePAM 0.5 MG Oral Tablet (KlonoPIN)Indicatio ns:Bipolar I disorder, most recent episode depressed, moderate (HCC) TAKE ONE TABLET BY MOUTH THREE TIMES DAILY 90 Tablet 0 01/27/2023 Active Additional Information Patient taking differently: Taking 1/2 tablet TID, Reported on 03/03/2023 Vitamin C 500 MG Oral Tablet (Ascorbic Acid)Indications:Re current UTI Take 1 Tablet by mouth in the morning and 1 Tablet before bedtime. 60 Tablet 5 01/28/2023 Active Gabapentin 300 MG Oral Capsule (Neurontin)Indicati ons:Lumbar spondylosis TAKE 1 CAPSULE BY MOUTH TWICE DAILY 60 Capsule 5 02/10/2023 Active Methenamine Hippurate 1 GM Oral Tablet (Hiprex)Indications :Recurrent UTI TAKE ONE TABLET BY MOUTH IN THE MORNING AND ONE TABLET BEFORE BEDTIME 60 Tablet 0 02/10/2023 Active Oxybutynin Chloride ER 10 MG [...] additional torsemide 30 Tablet 1 03/24/2023 Active Amoxicillin-Pot Clavulanate 875-125 MG Oral Tablet (Augmentin) Take 1 Tablet by mouth in the morning and 1 Tablet before bedtime. Do all this for 10 days. 20 Tablet 0 04/02/2023 04/12/20 23 Active documented as of this encounter (statuses as of 04/03/2023) Active Problems Problem Noted Date Medical home patient encounter 3 Hypertensive heart and kidne y disease with chronic diastolic congestive heart failure and stage 3a chronic kidney disease 12/28/2021 Last Assessment & Plan: Euvolemic, BP stable EF 55% 09/25 GFR 69 02/25 -Continue Torsemide 20 mg BID, Spironolactone 25 mg BID, Tropol XL 50 mg daily Atherosclerotic heart diseas e of [place] coronary artery with other forms of angina pectoris 11/15/2021 Last Assessment & Plan: Stable. No angina -continue toprol, ASA and statin Seasonal allergies 11/15/2021 Recurrent UTI 10/07/2021 Last Assessment & Plan: Followed by urology Pt is supposed to be on methenamine--will need to clarify with dgt that she is giving this. 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 Anxiety 08/05/2017 Erjzmqj-Lmaje-Wgegr disease 06/27/2015 Last Assessment & Plan: Frequent [...] as of this encounter (statuses as of 04/03/2023) Resolved Problems Problem Noted Date Resolved Date [...] 05/06/2018 019 Atherosclerotic heart diseas e of [place] coronary artery with other forms of angina [...] 10/31/201008/08 Acute coronary syndrome 10/30/2010 01/22/20 14 [place] [employer] Other*[id number] 02/02/2010 04/18/2014 Overview: [place] Registry, Dr Joel wKon PI Obesity, morbid (more than 1 00 [...] as of this encounter (statuses as of 04/03/2023) Immunizations Name Administration Dates Next Due COVID-19 [...] Panda MD [address] [place] [phone] 04/23/2023 Office Visit Infectious Disease Kendall Bell, DO [address] [place] [address] 04/28/2023 Office Visit Family Medicine Brian Domínguez MD [address] [place], [place] [phone] 05/05/2023 Office Visit Cardiology Sobia Brewster PA-C [address] [place] [address] 05/09/2023 Office Visit Gastroenterology Wendy Frias DO [address] [place] [address] 05/12/2023 Telemedicine [facility] Lashay Blevins PA-C [address] [place] [address] Beverly Lozoya, [facility] Software Installation Engineer [address] [place] [address] [place] [address] Pending Results Name Type Priority Associated Diagnoses Date /Time CULTURE, URINE, QUANTITATIVE Lab STAT Bad odor of urine 04/03/2023 4:49 PM EDT Scheduled Procedures Name Priority Associated Diagnoses Date/Ti ut COLONOSCOPY FLEXIBLE PROXIMA L DIAGNOSTIC Recall Special [...] Additional history exists CKD PHOS USE SMARTSET 97251 10/24/202310/05, 02/18/2022, 02/17/2022, Additional history exists TSH 02/14/2024 02/13/2023, 10/05, 02/28/2022, Additional history exists CKD HGB USE SMARTSET 93476 02/19/202402/18, 02/11/2023, 02/07/2023, Additional history exists Colonoscopy [...] this encounter Medical Devices Implanted Type Area Hotel Yardperson Device Identifier Shelf Expiration Date Model / Serial / Lot Sut Steel 6 [id number] - [id number] Implanted:Qty: 1 on 02[place]15[place]2011 [place] [facility] [place]A: Chest DO NOT USE 07/21/2015 [id number] / / [id number] documented as of this encounter Visit Diagnoses Diagnosis Bad odor of urine Other nonspecific finding on examination of urine documented in this encounter Advance Directives Documents on File Type Date 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 Question Answer Comments Discussion of Advance Directives occurred with: Patient Does the patient have a Living Will? No Does the patient have Health Care Power of Canteen Manager? No Code Status History Code Status [...] the patient have Health Care Power of Canteen Manager? No Full Code 02/01/2010 4:02 PM 02/02/2010 4:09 PM This order reflects the patients wishes and were consensually agreed upon. Question Answer Comments Discussion of Advance Directives occurred with: Not Discussed Does the patient have a Living Will? No Does the patient have Health Care Power of Canteen Manager? No Healthcare Agents on File Name Relationship Healthcare Agent [facility] p Communication Carolyn Ballard Adult Child Health Care Agent Care Teams Baker Biscuit Relationship Specialty Start Date End Date Brian Domínguez MD [address] [place] [address] PCP - General Family Medicine 07/16/17 documented as of this encounter
--- OUTSIDE RECORDS SUMMARY | 2023-05-17 12:09 | External Medical Summary | Summary of Care ---
Author Name Unknown Organization [facility] Address [address] [place] [address] Phone [phone] Care Team Providers Care Administrative Coordinator Name Role Phone Brian Domínguez MD Primary Care Provider [phone]- [phone] Encounter Details Date Type Department Care Team Description 04/02/2023 Orders Only [facility], [place] [address] [place] [address] Lashay Blevins PA-C [address] [place] [address] Bad odor of urine* Allergies Active Allergy Reactions Severity Noted Date Comments Propoxyphene Hcl Rash Low 10/29/2010 Fentanyl Diarrhea Low 04/26/2010 anxiety Methocarbamol Medium 10/05/2020 Other reaction(s): Delirium Methocarbamol Low 04/15/2007 Zolpidem Low 10/05/2020 Other reaction(s): Confusion documented as of this encounter (statuses as of 04/02/2023) Medications Medication Sig Dispensed Refills Start Date End Date Status ARIPiprazole (ABILIFY) 2 MG Tablet Take 1 Tablet by mouth in the morning. 0 2015 Active venlafaxine XR (EFFEXOR XR) 150 MG [id number]:Dep ression Take 1 Cap by mouth daily. With food. 30 Cap 5 09/02/2016 Active Additional Information Patient taking differently: 225 mgOral Daily(AM),Taking a total of 225 mg, Indications: Takes 225 mg total every morning with food (150 mg tab + 75 mg tab), Reported on 03/03/2023 Blood Glucose Monitoring Suppl ([employer] GLUCOMETER) w/Device KITIndications:Unco ntrolled type 2 diabetes mellitus without complication, without long-term current use of insulin Use as directed. Use as directed once daily 1 Kit 0 11/18/2017 Active Blood Glucose Monitoring Suppl ([employer] VERIO) w/Device KIT Use as directed. Use as directed. 1 Kit 0 10/31/2018 Active Spacer/Aero-Holding Chambers WISAM Use with inhaler. Wheezing/bronchitis . 1 Device 0 04/08/2019 Active [employer] Lancets 33G MISC USE UP TO FOUR TIMES A DAY Dx:E11.4 100 Each 5 09/30/2019 Active Lancet Devices (Omniture[employer] DELICA LANCING DEV) MISC Use four times [...] Respimat 2.5 MCG/ACT Inhalation Aerosol Solution (Tiotropium [place] Monohydrate) Inhale by mouth 2 Puffs in [...] 06/05/2022 Active Vitamin D (Ergocalciferol) 1.25 MG (51895 UT) Oral Capsule (Drisdol)Indication s:Vitamin D deficiency [...] 90 Tablet 1 12/19/2022 Active UltiCare Pen Mcdavid 31G X 5 MM (Insulin Pen Needle) use TWICE DAILY 200 Each 3 12/23/2022 Active Torsemide 20 MG Oral Tablet (Demadex)Indication s:Atherosclerotic heart disease of [place] coronary artery with other forms of angina [...] bedtime 180 Tablet 3 01/16/2023 Active Nystatin 000209 UNIT/GM External Powder (Nystop)Indications :Candidal intertrigo Apply [...] daily 300 Strip 3 01/16/2023 Active Nystatin 072093 UNIT/ML Mouth/Throat Suspension SWISH AND SWALLOW 5ML [...] as of this encounter (statuses as of 04/02/2023) Active Problems Problem Noted Date Medical home patient encounter 3 Hypertensive heart and kidne y disease with chronic diastolic congestive heart failure and stage 3a chronic kidney disease 12/28/2021 Last Assessment & Plan: Euvolemic, BP stable EF 55% 09/25 GFR 69 02/25 -Continue Torsemide 20 mg BID, Spironolactone 25 mg BID, Tropol XL 50 mg daily Atherosclerotic heart diseas e of [place] coronary artery with other forms of angina pectoris 11/15/2021 Last Assessment & Plan: Stable. No angina -continue toprol, ASA and statin Seasonal allergies 11/15/2021 Recurrent UTI 10/07/2021 Last Assessment & Plan: Followed by urology Pt is supposed to be on methenamine--will need to clarify with dgt that she is giving this. 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/2014 correction current use of anticoagulant therapy 1 08/18/2005 [...] as of this encounter (statuses as of 04/02/2023) Immunizations Name Administration Dates Next Due COVID-19 [...] [facility] Lashay Blevins PA-C [address] [place] [address] Beverly Lozoya, [facility] [address] [place] [address] 04/09/2023 Office Visit Urology Alfredo Panda MD [address] [address] 04/23/2023 Office Visit Infectious Disease Kendall Bell, DO [address] [place] [address] 04/28/2023 Office Visit Family Medicine Brian Domínguez MD [address] [place] [address] 05/05/2023 Office Visit Cardiology Sobia Brewster PA-C [address] [place] [address] 05/09/2023 Office Visit Gastroenterology Wendy Frias, DO [address] [place] [id number] Scheduled Orders Name Type Priority Associated Diagnoses Orde r Schedule CULTURE, URINE, QUANTITATIVE Lab STAT Bad odor of urine Expected: 04/02/2023, Expires: 04/02/2024 Scheduled Procedures Name Priority Associated Diagnoses Date/Ti [...] Additional history exists CKD PHOS USE SMARTSET 09043 10/24/202310/05, 02/18/2022, 02/17/2022, Additional history exists TSH 02/14/2024 02/13/2023, 10/05, 02/28/2022, Additional history exists CKD HGB USE SMARTSET 63668 02/19/202402/18, 02/11/2023, 02/07/2023, Additional history exists Colonoscopy [...] this encounter Medical Devices Implanted Type Area Grounds Maintenance Supervisor Device Identifier Shelf Expiration Date Model / Serial / Lot Sut Steel 6 [id number] - [id number] Implanted:Qty: 1 on 02/15/2011 [place] [facility] [place] Chest DO NOT USE 07/21/2015 [id number] / / [id number] documented as of this encounter Visit Diagnoses Diagnosis Bad odor of urine- Primary Other nonspecific finding on examination of urine documented in this encounter Advance Directives Documents on File Type Date 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 Question Answer Comments Discussion of Advance Directives occurred with: Patient Does the patient have a Living Will? No Does the patient have Health Care Power of Home Day Care Provider? No Code Status History Code Status Date [...] the patient have Health Care Power of Home Day Care Provider? No Full Code 02/01/2010 4:02 PM 02/02/2010 4:09 PM This order reflects the patients wishes and were consensually agreed upon. Question Answer Comments Discussion of Advance Directives occurred with: Not Discussed Does the patient have a Living Will? No Does the patient have Health Care Power of Home Day Care Provider? No Healthcare Agents on File Name Relationship Healthcare Agent Relationsms p Communication Carolyn Ballard Adult Child Health Care Agent Care Teams Administrative Coordinator Relationship Specialty Start Date End Date Brian Domínguez MD [address] [place] [address] PCP - General Family Medicine 07/16/17 documented as of this encounter
--- OUTSIDE RECORDS SUMMARY | 2023-05-17 12:09 | External Medical Summary | Summary of Care ---
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 Associate Teacher Name Role Phone Brian Domínguez MD Primary Care Provider [phone]- [phone] Reason for Visit * Reason Comments [facility]: Telehealth Encounter Details Date Type Department Care Team Description 04/03/2023 Telemedicine [facility], [place] [address] [place] [address] Lashay Blevins PA-C [address] [place] [address] Beverly Lozoya [address] [place] [address] 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)*; Type 2 diabetes mellitus with stage 3a chronic kidney disease, with long-term current use of insulin ([facility]); S/p left hip fracture; Noncompliance Allergies Active Allergy Reactions Severity Noted Date [...] Active venlafaxine XR (EFFEXOR XR) 150 MG [id number]:Dep ression Take 1 Cap by mouth daily. With food. 30 Cap 5 7 Active Additional Information Patient taking differently: 225 mgOral Daily(AM),Taking a total of 225 mg, Indications: Takes 225 mg total every morning with food (150 mg tab + 75 mg tab), Reported on 03/03/2023 Blood Glucose Monitoring Suppl (D-Gravitant GLUCOMETER) w/Device KITIndications:Unco ntrolled type 2 diabetes mellitus without complication, without long-term current use of insulin Use as directed. Use as directed once daily 1 Kit 0 8 Active Blood Glucose Monitoring Suppl ([facility] VERIO) w/Device KIT Use as directed. Use [...] Respimat 2.5 MCG/ACT Inhalation Aerosol Solution (Tiotropium Stem Monohydrate) Inhale by mouth 2 Puffs in [...] 2 Active Vitamin D (Ergocalciferol) 1.25 MG (11340 UT) Oral Capsule (Drisdol)Indication s:Vitamin D deficiency [...] 90 Tablet 1 3 Active UltiCare Pen [place] 31G X 5 MM (Insulin Pen Needle) use TWICE DAILY 200 Each 3 3 Active Torsemide 20 MG Oral Tablet (Demadex)Indication s:Atherosclerotic heart disease of [place] coronary artery with other forms of angina pectoris (HCC),Hypertensive heart disease with chronic diastolic congestive heart failure (HCC) TAKE 1 TABLET BY MOUTH EVERY MORNING. MAY TAKE 1 ADDITIONAL TABLET NEEDED FOR SWELLING. 90 Tablet 3 Active Spironolactone 50 MG Oral Tablet (Aldactone)Indicati ons:GONZALEZ (nonalcoholic steatohepatitis),Po rtal hypertension (HCC),Chronic liver disease and cirrhosis,Portal hypertensive gastropathy Take 1 tablet by mouth in the morning and before bedtime 180 Tablet 3 3 Active Nystatin 928646 UNIT/GM External Powder (Nystop)Indications :Candidal intertrigo Apply [...] daily 300 Strip 3 3 Active Nystatin 327649 UNIT/ML Mouth/Throat Suspension SWISH AND SWALLOW 5ML [...] additional torsemide 30 Tablet 1 3 Active Amoxicillin-Pot Clavulanate 875-125 MG Oral Tablet (Augmentin) Take 1 Tablet by mouth in the morning and 1 Tablet before bedtime. Do all this for 10 days. 20 Tablet 0 3 04/12/20 Active Morphine Sulfate ER 15 MG Oral [...] mg daily Atherosclerotic heart diseas e of [place] coronary artery with other forms of angina pectoris 11/15/2021 Last Assessment & Plan: Stable. No angina -continue toprol, ASA and statin Seasonal allergies 11/15/2021 Recurrent UTI 10/07/2021 Last Assessment & Plan: Followed by urology Pt is supposed to be on methenamine--will need to clarify with dgt that she is giving this. 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 1 08/18/2005 [...] on file documented as of this encounter Last Filed Vital Signs Vital Sign Reading Time Taken Comments Blood Pressure 110/64 04/03/2023 3:00 PM EDT Pulse 70 04/03/2023 3:00 PM EDT Temperature 35.6 C (96.1 F) 04/03/2023 3:00 PM ED T Respiratory Rate 18 04/03/2023 3:00 PM EDT Oxygen Saturation 97% 04/03/2023 3:00 PM EDT Inhaled Oxygen Concentration - - Weight - - Height - - Body Mass Index - - documented in this encounter Progress Notes * Beverly Lozoya [facility] Operator - 04/03/2023 4:14 PM EDT [facility] Visit Date: 04/03/2023 Time: 3:00 PM Name: Angelina Ballard : 1950 Referral Source: Provider Source of Information: Patient Spoken language: Eritrean Patient can read in Eritrean: Yes. Ladle Repairer needed: No. COVID-19 screening completed: Yes Vitals: Vital signs completed: Yes, vital signs within normal range. BP 110/64 (BP Site: Left Arm, BP Position: Sitting) | Pulse 70 | Temp 35.6 C (96.1 F) | Resp 18| SpO2 97% Condition Changes: Changes in health or social status since last visit: patient reports flu s/s. Concerned she has a UTI. Took a COVID test, which was negative. The patient has new concerns since last visit: Yes, UTI s/s Progress towards goals since last visit: continues living independently with assistance of family and caregivers. Medications: Medication review completed? No, Does the patient have barriers to medication adherence? No. Patient reports difficulty paying for medications or might in the future: No. Telehealth: This is a telehealth visit: Yes. Type of telehealth visit: Return/Routine Visit conducted with: Physician/AP Symptoms Surveys and Evaluations: MAHC10 completed this visit: No. Last flowsheet values for MAHC10: Age 65+: 1 (03/03/2023 3:00 PM) Diagnosis (3 or more co-existing): 1 (03/03/2023 3:00 PM) Prior history of falls within 3 months: 1 (03/03/2023 3:00 PM) Incontinence: 1 (03/03/2023 3:00 PM) Visual impairment: 0 (03/03/2023 3:00 PM) Impaired functional mobility: 1 (03/03/2023 3:00 PM) Environmental hazards: 0 (03/03/2023 3:00 PM) Poly Pharmacy (4 or more prescriptions - any type): 1 (03/03/2023 3:00 PM) Pain affecting level of function: 1 (03/03/2023 3:00 PM) Cognitive impairment: 1 (03/03/2023 3:00 PM) Score - a score of 4 or more is considered at risk for fallin (03/03/2023 3:00 PM) Plan: Plan for the patient RANDY obtained urine specimen. Aspirated 5ml clear urine from mejia tube. Call to daoCarolyn to make aware. Sample transported to lab at [facility]. Follow Up: Patient encouraged to call the intake phone number for all urgent but not emergent issues. Scheduled to follow up with patient in as needed. [facility] 04/03/2023 3:00 PM * Lashay Johnston PA-C - 04/03/2023 3:00 PM EDT [facility] Provider Telemedicine Visit Date: 04/03/2023 Time: 2:42 PM Assessment/Plan: 1. 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) Stable 2. Type 2 diabetes mellitus with stage 3a chronic kidney disease, with long-term current use of insulin (HCC) Stable 3. S/p left hip fracture Recently saw orthopedics for follow up Advised toe touch weight bearing 4. Noncompliance Patient does not follow up with specialists Follow up plan: Patient seeing Urology, ID and PCP in the next month. I will follow up in 6 weeks. Advised to reach out with any changes in symptoms. RANDY to take urine sample for a culture. Augmentinwas sent for cough and urinary symptoms pending culture. A total of 40 minutes was spent face to face via video-based telemedicine. Subjective Patient location: HOME. I was not in a hospital or clinic location. After connecting through [employer], patient was verified with two unique identifiers. 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 Methods to assure confidentiality were taken. Patient acknowledged consent and understanding of privacy and security of the Telemedicine visit. The patient agreed to participate. Reason for Visit: Follow-Up Current Concerns: Angelina Ballard is a 72 year old female seen today for a [facility] Telemedicine Provider Visit. Date of last known acute care visit: 03/26 with orthopedics Reason for last known acute care visit: Patient was recently admitted s/p fall on 02/01/23 and found to have a left distal femoral fracture.She underwent an ORIF on 02/02/23. Hospitalization was complicated by encephalopathy for which GI was consulted. She was restarted on her home lactulose. She was discharged to a rehab facility on 02/07/23. She was taken to the ED on 02/07/23 for encephalopathy. Encephalopathy was thought to be caused bypolypharmacy; work up was unremarkable. Opoid medications were discontinued. She received 2 units of PRBC for anemia when hospitalized. She had her follow up visit with orthopedics and saw PCP for hospital follow up on 02/24/23. Wound care referral was placed for wound to the left heel. She has services on board. Family reached out to me last week as she was having malodorous vaginal d/c. A BV swab was ordered and I sent a Rx for Diflucan. She was d/c home with a mejia catheter that is managing. Her daughter called yesterday reporting change in mental status and foul smelling urine. Urine culture was ordered as she has grown various different organisms in the past. I do not see it in process. I reviewed previous urine cultures which showed Proteus and Enterobacter. She just completed a course of Cefdinir and Macrobid. Today's concerns are: Patient states she is ok but has a terrible productive cough with green sputum for weeks. She feelstired and run down. She has had this cough before in the past and has taken multiple courses of antibiotics. She did not complete the entire course of boric acid for the yeast infection but states the symptoms have mostly subsided. She feels irritation at the urethra. Urine has been yellow in colorbut cloudy. She states it has a foul odor. She has some mild edema in the LE's; mostly the left. She states she has the heel bandages and feels it is improving. She missed her appointment at wound care. HH is changing her mejia catheter and is she is due in one week. No changes with appetite or bowel movements. BG has been in high 90's to low 100's . ROS: See HPI Objective Physical Exam: BP 110/64 (BP Site: Left Arm, BP Position: Sitting) | Pulse 70 | Temp 35.6 C (96.1 F) | Resp 18| SpO2 97% Previous Wts: Wt Readings from Last 5 Encounters: 02/24/23 110.7 kg (244 lb) 11/26/22 112 kg (247 lb) 10/29/22 115.7 kg (255 lb) 10/23/22 114.3 kg (252 lb) 10/23/22 115.7 kg (255 lb) Previous BPs: BP Readings from Last 5 Encounters: 03/03/23 110/58 02/24/23 110/58 01/20/23 140/70 01/15/23 110/70 06/16/23 136/80 Physical Exam Constitutional: General: She is not in acute distress. Appearance: She is not ill-appearing. HENT: Head: Normocephalic. Nose: Nose normal. Mouth/Throat: Pharynx: Oropharynx is clear. Eyes: Extraocular Movements: Extraocular movements intact. Conjunctiva/sclera: Conjunctivae normal. Cardiovascular: Rate and Rhythm: Normal rate and regular rhythm. Heart sounds: Murmur heard. Pulmonary: Effort: Pulmonary effort is normal. No respiratory distress. Breath sounds: Normal breath sounds. Musculoskeletal: Comments: Edema noted to the dorsum of the left foot. Neurological: Mental Status: She is alert. Diagnostic Data Review: Hematology Lab Results Component Value Date/Time WBC AUTO - [facility] 5.72 02/18/2023 05:40 AM WBC AUTO - [facility] 8.03 02/11/2023 05:50 AM WBC AUTO - [facility] 6.19 02/07/2023 05:55 AM WBC AUTO - [facility] 4.80 12/14/2019 01:10 PM WBC AUTO - [facility] 6.35 11/16/2019 01:45 PM WBC AUTO - [facility] 4.84 07/08/2019 12:51 PM Lab Results Component Value Date/Time HGB - [facility] 10.9 (L) 02/18/2023 05:40 AM HGB - [facility] 10.8 (L) 02/11/2023 05:50 AM HGB - [facility] 8.6 (L) 02/07/2023 05:55 AM HGB - [facility] 10.7 (L) 12/14/2019 01:10 PM HGB - [facility] 11.6 (L) 11/16/2019 01:45 PM HGB - [facility] 9.9 (L) 07/08/2019 12:51 PM Lab Results Component Value Date/Time HCT - [facility] 34.0 (L) 02/18/2023 05:40 AM HCT - [facility] 34.3 (L) 02/11/2023 05:50 AM HCT - [facility] 27.4 (L) 02/07/2023 05:55 AM HCT - [facility] 35.4 (L) 12/14/2019 01:10 PM HCT - [facility] 36.7 11/16/2019 01:45 PM HCT - [facility] 32.6 (L) 07/08/2019 12:51 PM Lab Results Component Value Date/Time PLATELET AUTO - [facility] 178 02/18/2023 05:40 AM PLATELET AUTO - [facility] 227 02/11/2023 05:50 AM PLATELET AUTO - [facility] 135 (L) 02/07/2023 05:55 AM PLATELET AUTO - [facility] 132 (L) 12/14/2019 01:10 PM PLATELET AUTO - [facility] 135 (L) 11/16/2019 01:45 PM PLATELET AUTO - [facility] 127 (L) 07/08/2019 12:51 PM Lab Results Component Value Date/Time IRON - [facility] 55 11/21/2022 09:02 AM IRON - [facility] 46 04/20/2018 03:04 PM Lab Results Component Value Date/Time TRANSFERRIN SATURATION PERCENT - [facility] 17 11/21/2022 09:02 AM TRANSFERRIN SATURATION PERCENT - [facility] 12 (L) 04/20/2018 03:04 PM No results found for: TRANSFERRIN - [facility] Lab Results Component Value Date/Time VITAMIN B12 - [facility] 540 02/13/2021 12:32 PM VITAMIN B12 - [facility] 363 05/22/2020 01:24 PM Chemistry/Renal Lab Results Component Value Date/Time SODIUM - [facility] 134 (L) 02/18/2023 05:40 AM SODIUM - [facility] 134 (L) 02/11/2023 05:50 AM SODIUM - [facility] 133 (L) 07/18/2020 12:20 PM SODIUM - [facility] 129 (L) 05/22/2020 01:24 PM Lab Results Component Value Date/Time POTASSIUM - [facility] 3.7 02/18/2023 05:40 AM POTASSIUM - [facility] 4.4 02/11/2023 05:50 AM POTASSIUM - [facility] 4.6 07/18/2020 12:20 PM POTASSIUM - [facility] 4.7 05/22/2020 01:24 PM Lab Results Component Value Date/Time PHOSPHORUS - [facility] 4.6 10/23/2022 10:46 AM PHOSPHORUS - [facility] 3.7 02/18/2022 06:45 AM PHOSPHORUS - [facility] 2.4 (L) 06/15/2006 03:25 AM PHOSPHORUS - [facility] 3.1 06/14/2006 05:08 AM Lab Results Component Value Date/Time MAGNESIUM - [facility] 2.2 09/24/2021 02:19 PM MAGNESIUM - [facility] 1.9 12/11/2020 03:08 PM MAGNESIUM - [facility] 1.9 05/22/2020 01:24 PM MAGNESIUM - [facility] 1.9 07/08/2019 12:51 PM Lab Results Component Value Date/Time BUN - [facility] 13 02/18/2023 05:40 AM BUN - [facility] 11 02/11/2023 05:50 AM BUN - [facility] 12 02/07/2023 05:55 AM BUN - [facility] 8 07/18/2020 12:20 PM BUN - [facility] 8 05/22/2020 01:24 PM BUN - [facility] 9 12/14/2019 01:10 PM Lab Results Component Value Date/Time CREATININE - [facility] 0.9 02/18/2023 05:40 AM CREATININE - [facility] 1.0 02/11/2023 05:50 AM CREATININE - [facility] 0.9 02/07/2023 05:55 AM CREATININE - [facility] 1.0 07/18/2020 12:20 PM CREATININE - [facility] 0.9 05/22/2020 01:24 PM CREATININE - [facility] 0.8 12/14/2019 01:10 PM Lab Results Component Value Date/Time ESTIMATED GLOMERULAR FILTRATION RATE - [facility] 71 02/18/2023 05:40 AM ESTIMATED GLOMERULAR FILTRATION RATE - [facility] 61 02/11/2023 05:50 AM ESTIMATED GLOMERULAR FILTRATION RATE - [facility] 72 02/07/2023 05:55 AM ESTIMATED GLOMERULAR FILTRATION RATE - [facility] 59.5 (L) 07/18/2020 12:20 PM ESTIMATED GLOMERULAR FILTRATION RATE - [facility] >60.0 05/22/2020 01:24 PM ESTIMATED GLOMERULAR FILTRATION RATE - [facility] >60.0 12/14/2019 01:10 PM ESTIMATED GLOMERULAR FILTRATION RATE - [facility] >60.0 08/25/2013 02:17 PM ESTIMATED GLOMERULAR FILTRATION RATE - [facility] >60.0 03/04/2013 02:30 PM ESTIMATED GLOMERULAR FILTRATION RATE - [facility] >60.0 10/29/2012 04:26 PM No results found for: PTH - [facility] Liver Lab Results Component Value Date/Time AST - [facility] 23 10/23/2022 10:46 AM AST - [facility] 36 (H) 04/25/2022 04:45 PM AST - [facility] 24 05/22/2020 01:24 PM AST - [facility] 18 12/14/2019 01:10 PM Lab Results Component Value Date/Time ALT - [facility] 16 10/23/2022 10:46 AM ALT - [facility] 27 04/25/2022 04:45 PM ALT - [facility] 26 05/22/2020 01:24 PM ALT - [facility] 9 (L) 12/14/2019 01:10 PM Lab Results Component Value Date/Time ALKALINE PHOSPHATASE - [facility] 164 (H) 10/23/2022 10:46 AM ALKALINE PHOSPHATASE - [facility] 172 (H) 04/25/2022 04:45 PM ALKALINE PHOSPHATASE - [facility] 116 05/22/2020 01:24 PM ALKALINE PHOSPHATASE - [facility] 98 12/14/2019 01:10 PM Lab Results Component Value Date/Time BILIRUBIN URINE, POCT - [facility] Negative 12/13/2022 12:00 AM BILIRUBIN, DIRECT - [facility] 0.7 (H) 02/16/2022 05:50 AM BILIRUBIN, DIRECT - [facility] <0.2 11/16/2019 01:45 PM BILIRUBIN, TOTAL - [facility] 0.6 10/23/2022 10:46 AM BILIRUBIN, TOTAL - [facility] 0.3 05/22/2020 01:24 PM BILIRUBIN, URINE - [facility] Negative 12/05/2022 09:00 AM BILIRUBIN, URINE - [facility] NEGATIVE 08/02/2020 10:46 AM Cardiac Lab Results Component Value Date/Time PRO BNP 216 09/16/2018 04:09 PM PRO BNP 658 (H) 04/14/2018 04:14 PM PRO BNP 413 (H) 03/04/2013 02:30 PM Lab Results Component Value Date/Time LEFT VENTRICULAR EJECTION FRACTION 55 09/21/2021 01:54 PM LEFT VENTRICULAR EJECTION FRACTION 61 12/17/2019 02:12 PM Lab Results Component Value Date/Time HDL CHOLESTEROL - [facility] 55 10/23/2022 10:46 AM HDL CHOLESTEROL - [facility] 47 02/18/2019 02:55 PM Lab Results Component Value Date/Time NON-HDL CHOLESTEROL - [facility] 48 10/23/2022 10:46 AM Endocrine Lab Results Component Value Date/Time HEMOGLOBIN A1C - [facility] 6.3 (H) 10/23/2022 10:46 AM HEMOGLOBIN A1C - [facility] 5.6 04/25/2022 04:45 PM HEMOGLOBIN A1C - [facility] 5.9 (H) 05/22/2020 01:24 PM HEMOGLOBIN A1C - [facility] 6.1 (H) 12/14/2019 01:10 PM Lab Results Component Value Date/Time ESTIMATED AVERAGE GLUCOSE - [facility] 134 (H) 10/23/2022 10:46 AM ESTIMATED AVERAGE GLUCOSE - [facility] 114 04/25/2022 04:45 PM Lab Results Component Value Date/Time TSH - [facility] 4.06 02/13/2023 05:30 AM TSH - [facility] 2.74 10/23/2022 10:46 AM TSH - [facility] 1.47 05/22/2020 01:24 PM TSH - [facility] 3.26 12/14/2019 01:10 PM Lab Results Component Value Date/Time T4, FREE - [facility] 1.6 10/23/2022 10:46 AM T4, FREE - [facility] 1.12 12/14/2019 01:10 PM Medication Review: Current Outpatient Medications Medication Sig Dispense Refill ARIPiprazole (ABILIFY) 2 MG Tablet Take 1 Tablet by mouth in the morning. 0 venlafaxine XR (EFFEXOR XR) 150 MG CP24 Take 1 Cap by mouth daily. With food. (Patient taking differently: Take 225 mg by mouth in the morning. Taking a total of 225 mg.) 30 Cap 5 Blood Glucose Monitoring Suppl (D-CARE GLUCOMETER) w/Device KIT Use as directed. Use as directed once daily 1 Kit 0 Blood Glucose Monitoring Suppl ([facility] VERIO) w/Device KIT Use as directed. Use as directed. 1 Kit 0 Spacer/Aero-Holding Chambers WISAM Use with inhaler. Wheezing/bronchitis. 1 Device 0 Lemon DelBel Vino Lancets 33G MISC USE UP TO FOUR TIMES A DAY Dx:E11.4 100 Each 5 Lancet Devices (ContractRoomTOUCH DELICA LANCING DEV) MISC Use four times a day Dx: E11.4 1 Each 0 venlafaxine XR (EFFEXOR XR) 75 MG CP24 Take 1 Capsule by mouth in the morning. With 150mg tablet. traZODone (DESYREL) 50 MG Tablet Take 1 Tablet by mouth at bedtime. 30 Tab 5 Aspirin EC 81 MG Oral Tablet Delayed Release Take 1 Tablet by mouth in the morning. Fluticasone Propionate 50 MCG/ACT Nasal Suspension Administer 2 Sprays into each nostril daily. 9.9mL 1 NovoFine 32G X 6 MM (NOVOFINE 32G PEN NEEDLE) using twice a day with levemir 100 Each 5 Nitroglycerin 0.4 MG Sublingual Tablet Sublingual (Nitrostat) Place under the tongue 1 Tablet every5 minutes as needed for Pain, Chest. Max dose 3 tablets in 15 minutes 25 Tablet 5 Lactulose 10 GM/15ML Oral Solution (Constulose) TAKE 45 ML BY MOUTH TWICE DAILY DIRECTED (Patient taking differently: 3 times a day.) 2700 mL 5 lamoTRIgine 100 MG Oral Tablet (LaMICtal) Take 1 Tablet by mouth every morning. (Patient not taking: Reported on 03/03/2023) 30 Tablet 5 Insulin Glargine Solostar 100 UNIT/ML Subcutaneous Solution Pen-injector (Basaglar KwikPen) Inject 30 units under the skin twice daily (Patient taking differently: 20 Units in the morning and 20 Units in the evening.) 45 mL 3 Insulin Glargine Solostar 100 UNIT/ML Subcutaneous Solution Pen-injector (Basaglar KwikPen) Inject 30 units under the skin twice daily (Patient taking differently: 20 Units. Inject 30 units under theskin twice daily) 45 mL 3 Metoprolol Succinate ER 25 MG Oral Tablet Extended Release 24 Hour (toPROL XL) Take by mouth 1 Tablet in the morning. 90 Tablet 3 Atorvastatin Calcium 40 MG Oral Tablet (Lipitor) Take by mouth 1 Tablet in the morning. 90 Tablet 3 Spiriva Respimat 2.5 MCG/ACT Inhalation Aerosol Solution (Tiotropium Stem Monohydrate) Inhale bymouth 2 Puffs in the morning. 4 g 3 Estradiol 0.1 MG/GM Vaginal Cream Administer into the vagina 1 g in the morning. (Patient not taking: Reported on 03/03/2023) 42.5 g 12 Diclofenac Sodium 1 % External Gel (Voltaren) Apply topically to affected area 2 times a day. 150 g3 Vitamin D (Ergocalciferol) 1.25 MG (52014 UT) Oral Capsule (Drisdol) TAKE ONE CAPSULE BY MOUTH WEEKLY 12 Capsule 3 Benzonatate 100 MG Oral Capsule (Tessalon Perles) TAKE ONE CAPSULE BY MOUTH THREE TIMES DAILY NEEDED for cough. do not cut, crush or chew 50 Capsule 0 AIRS Disposable Nebulizer Kit Use as directed 1 Kit 0 Ipratropium-Albuterol 0.5-2.5 (3) MG/3ML Inhalation Solution (Duoneb) Inhale 3 mL via nebulizer in the morning and 3 mL at noon and 3 mL in the evening and 3 mL before bedtime. 360 mL 3 Trulicity 4.5 MG/0.5ML Subcutaneous Solution Pen-injector (Dulaglutide) INJECT 4.5 mg subcutaneously once per week (Patient taking differently: INJECT 4.5 mg subcutaneously once per week (Fri)) 6 mL 3 Tamsulosin HCl 0.4 MG Oral Capsule (Flomax) Take 1 Capsule by mouth in the morning. Every morning..90 Capsule 3 lamoTRIgine 25 MG Oral Tablet (LaMICtal) 1 Tablet. Taking 2 at bedtime and 1 in morning Famotidine 40 MG Oral Tablet (Pepcid) Take 1 Tablet by mouth in the morning. 90 Tablet 1 Albuterol Sulfate HFA 108 (90 Base) MCG/ACT Inhalation Aerosol Solution Use two puffs four times a day, as directed 18 g 3 Pantoprazole Sodium 40 MG Oral Tablet Delayed Release (Protonix) TAKE ONE TABLET BY MOUTH IN THE MORNING AND ONE TABLET IN THE EVENING 60 Tablet 5 Dicyclomine HCl 10 MG Oral Capsule (Bentyl) TAKE ONE CAPSULE BY MOUTH FOUR TIMES DAILY NEEDED FOR ABDOMINAL PAIN 120 Capsule 3 Ondansetron HCl 8 MG Oral Tablet (Zofran) TAKE 1 TABLET BY MOUTH EVERY 8 HOURS NEEDED FOR HVMMUN17 Tablet 5 Levothyroxine Sodium 88 MCG Oral Tablet (Levoxyl) take one tablet by mouth daily at least 30 minutes before breakfast and other medications 90 Tablet 3 Xifaxan 550 MG Oral Tablet (rifAXIMin) TAKE 1 TABLET BY MOUTH TWICE DAILY 60 Tablet 5 Montelukast Sodium 10 MG Oral Tablet (Singulair) TAKE 1 TABLET BY MOUTH ONCE DAILY 90 Tablet 1 UltiCare Pen [place] 31G X 5 MM (Insulin Pen Needle) use TWICE DAILY 200 Each 3 Torsemide 20 MG Oral Tablet (Demadex) TAKE 1 TABLET BY MOUTH EVERY MORNING. MAY TAKE 1 ADDITIONAL TABLET NEEDED FOR SWELLING. 90 Tablet 1 Spironolactone 50 MG Oral Tablet (Aldactone) Take 1 tablet by mouth in the morning and before bedtime 180 Tablet 3 Nystatin 595677 UNIT/GM External Powder (Nystop) Apply topically to affected area 3 times a day. Apply to right breast until rash resolved. 30 g 0 Sucralfate 1 GM Oral Tablet (Carafate) TAKE 1 TABLET BY MOUTH EVERY MORNING 90 Tablet 0 OneTouch Verio In Vitro Strip (Glucose Blood) use to test blood sugar 3 times daily 300 Strip 3 Nystatin 163512 UNIT/ML Mouth/Throat Suspension SWISH AND SWALLOW 5ML IN THE MORNING AND 5ML AT NOON AND 5 ML IN THE EVENING AND 5ML BEFORE BEDTIME, FOR THRUSH 240 mL 1 oxyCODONE HCl 5 MG Oral Tablet (Oxy IR) Take 1 Tablet by mouth every 8 hours as needed (pain). (Patient not taking: Reported on 02/24/2023) 60 Tablet 0 Morphine Sulfate ER 15 MG Oral Tablet Extended Release (Ms Contin) Take 1 Tablet by mouth at bedtime as needed for Pain, Severe. 30 Tablet 0 clonazePAM 0.5 MG Oral Tablet (KlonoPIN) TAKE ONE TABLET BY MOUTH THREE TIMES DAILY (Patient takingdifferently: Taking 1/2 tablet TID) 90 Tablet 0 Vitamin C 500 MG Oral Tablet (Ascorbic Acid) Take 1 Tablet by mouth in the morning and 1 Tablet before bedtime. 60 Tablet 5 Gabapentin 300 MG Oral Capsule (Neurontin) TAKE 1 CAPSULE BY MOUTH TWICE DAILY 60 Capsule 5 Methenamine Hippurate 1 GM Oral Tablet (Hiprex) TAKE ONE TABLET BY MOUTH IN THE MORNING AND ONE TABLET BEFORE BEDTIME 60 Tablet 0 Oxybutynin Chloride ER 10 MG Oral Tablet Extended Release 24 Hour (Ditropan XL) TAKE 1 TABLET BY MOUTH EVERY MORNING (Patient taking differently: Taking 1/2 tablet) 90 Tablet 0 Polyethylene Glycol 3350 17 GM/SCOOP Oral Powder (MiraLax) Dissolve one heaping tablespoon in 8 ounces of water or juice daily as needed for constipation 510 g 5 metFORMIN HCl ER 500 MG Oral Tablet Extended Release 24 Hour (Glucophage XR) TAKE 1 TABLET BY MOUTHONCE DAILY with dinner 90 Tablet 2 Budesonide-Formoterol Fumarate 160-4.5 MCG/ACT Inhalation Aerosol (Symbicort) Inhale 2 Puffs by mouth in the morning and 2 Puffs before bedtime. 10.2 g 12 Potassium Chloride Mag ER 20 MEQ Oral Tablet Extended Release take 1 tablet by mouth every morning. use when taking additional torsemide 30 Tablet 1 Amoxicillin-Pot Clavulanate 875-125 MG Oral Tablet (Augmentin) Take 1 Tablet by mouth in the morning and 1 Tablet before bedtime. Do all this for 10 days. 20 Tablet 0 No current facility-administered medications for this visit. Mobility Evaluation: MACH10 Assessment: Assistive Devices Used in the Home: Walker (standard or rollator) Recent Falls: Falls in the last 6 months: Yes - When last fall occurred: 02/2023 [facility]: DME (Durable Medical Equipment) needs [facility] [employer] Worker Services / Assistance with ADLs and Self-Care Routine Transportation Urgent Transportation Social Isolation Behavioral [facility] needs Lashay Johnston PA-C 2:42 PM *Communication sent to PCP (via [facility] if non[facility]), Population Health Care Team members, relevant Specialty Care Physicians* documented in this encounter Plan of Treatment Upcoming Encounters Date Type Specialty Care Team Description 04/09/2023 Office Visit Urology Alfredo Panda MD [address] [facility] [address] 04/23/2023 Office Visit Infectious Disease Kendall Bell, DO [address] [place] [address] 04/28/2023 Office Visit Family Medicine Brian Domínguez MD [address] [place] [address] 05/05/2023 Office Visit Cardiology Sobia Brewster PA-C [address] [facility] [place] [address] 05/09/2023 Office Visit Gastroenterology Wendy Frias, DO [address] [place] [address] 05/12/2023 [facility]medicine [facility]ash[facility]ins [facility]C [address] [facility] [address] Beverly Lozoya, [facility] [address] [place] [address] Scheduled Procedures Name [...] Additional history exists CKD PHOS USE SMARTSET 23229 10/24/202310/05, 02/18/2022, 02/17/2022, Additional history exists TSH 02/14/2024 02/13/2023, 10/05, 02/28/2022, Additional history exists CKD HGB USE SMARTSET 65131 02/19/202402/18, 02/11/2023, 02/07/2023, Additional history exists Colonoscopy [...] this encounter Medical Devices Implanted Type Area Green End Department Supervisor Device Identifier Shelf Expiration Date Model / Serial / Lot Jenna Rojas 6 [id number] - [id number] [place]ed:[place] 1 [place] [facility] [place] Chest DO NOT USE 07/21/2015 [id number] / / [id number] documented as of this encounter Visit Diagnoses Diagnosis 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 Question Answer Comments Discussion of Advance Directives occurred with: Patient Does the patient have a Living Will? No Does the patient have Health Care Power of Nail Machine Operator? No Code Status History Code [...] the patient have Health Care Power of Nail Machine Operator? No Full Code 02/01/2010 4:02 PM 02/02/2010 4:09 PM This order reflects the patients wishes and were consensually agreed upon. Question Answer Comments Discussion of Advance Directives occurred with: Not Discussed Does the patient have a Living Will? No Does the patient have Health Care Power of Nail Machine Operator? No Healthcare Agents on File Name Relationship Healthcare Agent [facility] p Communication Carolyn Ballard Adult Child Health Care Agent Care Teams Preschool Associate Teacher Relationship Specialty Start Date End Date Brian Domínguez MD [address] [place] [address] PCP - General Family Medicine 07/16/17 documented as of this encounter"
--- OUTSIDE RECORDS SUMMARY | 2023-05-17 12:09 | External Medical Summary | Summary of Care ---
Author Name Unknown Organization [facility] Address [address] [place] [address] Phone [phone] Care Team Providers Care Digester Name Role Phone Brian Domínguez MD Primary Care Provider [phone]- [phone] Reason for Visit * Reason Onset Date Comments Appointment 03/24/2023 Encounter Details Date Type Department Care Team Description 03/24/2023 Telephone [facility] [place] [address] [place] [address] [phone] Services, Scheduling [address] [place] [address] Appointment (//) Allergies Active Allergy Reactions Severity Noted Date [...] Active venlafaxine XR (EFFEXOR XR) 150 MG [id number]:Dep ression Take 1 Cap by mouth daily. [...] 0 11/18/2017 Active Blood Glucose Monitoring Suppl (Fat Spaniel TechnologiesTOUCH VERIO) w/Device KIT Use as directed. Use [...] Solution (Constulose)Indicat ions:Chronic liver disease and cirrhosis (HCC) TAKE 45 [...] Respimat 2.5 MCG/ACT Inhalation Aerosol Solution (Tiotropium [place] Monohydrate) Inhale by mouth 2 Puffs in [...] 06/05/2022 Active Vitamin D (Ergocalciferol) 1.25 MG (85304 UT) Oral Capsule (Drisdol)Indication s:Vitamin D deficiency [...] ons:GONZALEZ (nonalcoholic steatohepatitis),Ch ronic liver disease and cirrhosis (HCC),Hepatic encephalopathy (HCC) TAKE 1 TABLET BY MOUTH TWICE DAILY 60 Tablet 5 12/16/2022 Active Montelukast Sodium 10 MG Oral Tablet (Singulair)Indicati ons:Nasal sinus congestion,PND (post-nasal drip) TAKE 1 TABLET BY MOUTH ONCE DAILY 90 Tablet 1 12/19/2022 Active UltiCare Pen [place] 31G X 5 MM (Insulin Pen Needle) use TWICE DAILY 200 Each 3 12/23/2022 Active Torsemide 20 MG Oral Tablet (Demadex)Indication s:Atherosclerotic heart disease of [place] coronary artery with other forms of angina pectoris (HCC),Hypertensive heart disease with chronic diastolic congestive heart failure (HCC) TAKE 1 TABLET BY MOUTH EVERY MORNING. MAY TAKE 1 ADDITIONAL TABLET NEEDED FOR SWELLING. 90 Tablet 1 12/24/2022 Active Spironolactone 50 MG Oral Tablet (Aldactone)Indicati ons:GONZALEZ (nonalcoholic steatohepatitis),Po rtal hypertension (HCC),Chronic liver disease and cirrhosis (HCC),Portal hypertensive gastropathy (HCC) Take 1 tablet by mouth in the morning and before bedtime 180 Tablet 3 01/16/2023 Active Nystatin 341038 UNIT/GM External Powder (Nystop)Indications :Candidal intertrigo Apply [...] daily 300 Strip 3 01/16/2023 Active Nystatin 140320 UNIT/ML Mouth/Throat Suspension SWISH AND SWALLOW 5ML IN THE MORNING AND 5ML AT NOON AND 5 ML IN THE EVENING AND 5ML BEFORE BEDTIME, FOR THRUSH 240 mL 1 01/28/2023 Active Potassium Chloride Mag ER 20 MEQ Oral Tablet Extended Release TAKE 1 TABLET BY MOUTH EVERY MORNING. use when taking additional torsemide 30 Tablet 1 01/28/2023 Active oxyCODONE HCl 5 MG [...] With food until gone. 14 Capsule 0 03/18/2023 03/25/20 23 Active Polyethylene Glycol 3350 17 GM/SCOOP [...] before bedtime. 10.2 g 12 03/24/2023 Active documented as of this encounter (statuses [...] mg daily Atherosclerotic heart diseas e of [place] coronary artery with other forms of angina pectoris 11/15/2021 Last Assessment & Plan: Stable. No angina -continue toprol, ASA and statin Seasonal allergies 11/15/2021 Recurrent UTI 10/07/2021 Last Assessment & Plan: Followed by urology Pt is supposed to be on methenamine--will need to clarify with dgt that she is giving this. 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/2014 [facility] current use of anticoagulant therapy 1 08/18/2005 [...] * Telephone Encounter - DENG Cruz - 03/24/2023 12:27 PM EDT LMOM for daughter to confirm ret kaco telemed for 04/03 at 3pm documented in this encounter Plan of Treatment Upcoming Encounters Date Type Specialty Care Team Description 04/03/2023 Telemedicine [facility] Lashay Blevins PA-Peter [address] [place] [address] Beverly Lozoya, [facility] [address] [place] [address] 04/09/2023 Office Visit Urology Alfredo Panda MD [address] [address] 04/23/2023 Office Visit Infectious Disease Kendall Bell, DO [address] [place] [address] 04/28/2023 Office Visit Family Medicine Brian Domínguez MD [address] [place] [address] 05/05/2023 Office Visit Cardiology Sobia Brewster PA-C [address] [place] [address] 05/09/2023 Office Visit Gastroenterology Wendy Frias DO [address] [place] [address] Scheduled Procedures Name Priority Associated Diagnoses Date/Ti [...] Additional history exists CKD PHOS USE SMARTSET 03605 10/24/202310/05, 02/18/2022, 02/17/2022, Additional history exists TSH 02/14/2024 02/13/2023, 10/05, 02/28/2022, Additional history exists CKD HGB USE SMARTSET 70186 02/19/202402/18, 02/11/2023, 02/07/2023, Additional history exists Colonoscopy [...] this encounter Medical Devices Implanted Type Area Power Reactor Supervisor Device Identifier Shelf Expiration Date Model / Serial / Lot Sut Steel 6 M654g - [id number] Implanted:Qty: 1 on 02/15/2011 at [place] [facility] [place] N/A: Chest DO NOT USE 07/21/2015 [id number] / / [id number] documented as of this encounter Advance Directives Documents on File Type Date Recorded Patient Passenger Solicitor Jose GARZON 05/06/2018 POL Latest Code Status on File Code Status Date Activated Date Inactivated Comments Full Code 06/25/2011 3:09 AM 06/26/2011 9:47 PM Thi s order reflects the patients wishes and were consensually agreed upon. Question Answer Comments Discussion of Advance Directives occurred with: Patient Does the patient have a Living Will? No Does the patient have Health Care Power of Pellet Machine Operator? No Code Status History Code [...] the patient have Health Care Power of Pellet Machine Operator? No Full Code 02/01/2010 4:02 PM 02/02/2010 4:09 PM This order reflects the patients wishes and were consensually agreed upon. Question Answer Comments Discussion of Advance Directives occurred with: Not Discussed Does the patient have a Living Will? No Does the patient have Health Care Power of Pellet Machine Operator? No Healthcare Agents on File Name Relationship Healthcare Agent [facility] p Communication Carolyn Ballard Adult Child Health Care Agent Care Teams Digester Relationship Specialty Start Date End Date Brian Domínguez MD [address] [place] [address] PCP - General Family Medicine 07/16/17 documented as of this encounter
--- OUTSIDE RECORDS SUMMARY | 2023-05-17 12:10 | External Medical Summary | Summary of Care ---
Author Name Unknown Organization [facility] Address [address] [place] [address] Phone [phone] Care Team Providers Care Fur Polisher Name Role Phone Brian Domínguez MD Primary Care Provider [phone]- [phone] Reason for Visit * Reason Onset Date Comments Medication Refill 03/21/2023 Symbicort Encounter Details Date Type Department Care Team Description 03/21/2023 Refill Pulmonary Medicine, [place] [address], [place] [id number] Lizbeth Foster, [address] [place], [place] [id number] Allergies Active Allergy Reactions Severity Noted Date [...] Active venlafaxine XR (EFFEXOR XR) 150 MG [id number]:Dep ression Take 1 Cap by mouth daily. With food. 30 Cap 5 7 Active Additional Information Patient taking differently: 225 mgOral Daily(AM),Taking a total of 225 mg, Indications: Takes 225 mg total every morning with food (150 mg tab + 75 mg tab), Reported on 03/03/2023 Blood Glucose Monitoring Suppl ([employer] GLUCOMETER) w/Device KITIndications:Unco ntrolled type 2 diabetes mellitus without complication, without long-term current use of insulin Use as directed. Use as directed once daily 1 Kit 0 8 Active Blood Glucose Monitoring Suppl (24 QuanIO) w/Device KIT Use as directed. Use as [...] Respimat 2.5 MCG/ACT Inhalation Aerosol Solution (Tiotropium [place] Monohydrate) Inhale by mouth 2 Puffs in [...] 2 Active Vitamin D (Ergocalciferol) 1.25 MG (99251 UT) Oral Capsule (Drisdol)Indication s:Vitamin D deficiency [...] 90 Tablet 1 3 Active UltiCare Pen [place] 31G X 5 MM (Insulin Pen Needle) use TWICE DAILY 200 Each 3 3 Active Torsemide 20 MG Oral Tablet (Demadex)Indication s:Atherosclerotic heart disease of [place] coronary artery with other forms of angina [...] bedtime 180 Tablet 3 3 Active Nystatin 143722 UNIT/GM External Powder (Nystop)Indications :Candidal intertrigo Apply [...] daily 300 Strip 3 3 Active Nystatin 497085 UNIT/ML Mouth/Throat Suspension SWISH AND SWALLOW 5ML IN THE MORNING AND 5ML AT NOON AND 5 ML IN THE EVENING AND 5ML BEFORE BEDTIME, FOR THRUSH 240 mL 1 3 Active Potassium Chloride Mag ER 20 MEQ Oral Tablet Extended Release TAKE 1 TABLET BY MOUTH EVERY MORNING. use when taking additional torsemide 30 Tablet 1 3 Active oxyCODONE HCl 5 MG [...] TIMES DAILY 90 Tablet 0 3 Active Additional Information [...] With food until gone. 14 Capsule 0 3 03/25/20 23 Active Polyethylene Glycol 3350 17 GM/SCOOP Oral Powder (MiraLax) Dissolve one heaping tablespoon in 8 ounces of water or juice daily as needed for constipation 510 g 5 3 Active Budesonide-Formoter ol Fumarate 160-4.5 MCG/ACT Inhalation Aerosol (Symbicort) Inhale 2 Puffs by mouth in the morning and 2 Puffs before bedtime. 10.2 g 12 3 Active Budesonide-Formoter ol Fumarate 160-4.5 MCG/ACT Inhalation Aerosol (Symbicort) Inhale by mouth 2 Puffs in the morning AND 2 Puffs before bedtime. 10.2 g 12 2 03/21/20 23 Discontinu ed(Refill) documented as of this [...] mg daily Atherosclerotic heart diseas e of [place] coronary artery with other forms of angina pectoris 11/15/2021 Last Assessment & Plan: Stable. No angina -continue toprol, ASA and statin Seasonal allergies 11/15/2021 Recurrent UTI 10/07/2021 Last Assessment & Plan: Followed by urology Pt is supposed to be on methenamine--will need to clarify with dgt that she is giving this. 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 Authorizing Provider: LIZBETH FOSTER * Telephone Encounter - Yina Iraheta, MED ASSIST - 03/21/2023 12:57 PM EDT Pending Prescriptions: Disp Refills Budesonide-Formoterol Fumarate 160-4.5 MC*10.2 g 12 Sig: Inhale 2 Puffs by mouth in the morning and 2 Puffs before bedtime. Most Recent Office Visit Date:09/19/2022 (in office), Visit date not found (telemedicine) Next Scheduled Office Visit Date:Visit date not found If no future appointments scheduled, and last appointment is greater than a year ago, please schedule patient for a follow-up appointment Last date the medication was ordered: 02/18/2022 [id number] [address] Please review and sign at your discretion. documented in this encounter Plan of Treatment Upcoming Encounters Date Type Specialty Care Team Description 04/03/2023 Telemedicine [facility] Lashay Blevins PA-C [address] [place] [address] Beverly Lozoya, [address] [place] [address] 04/09/2023 Office Visit Urology Alfredo Panda MD [address] [place], [place] [phone] 04/23/2023 Office Visit Infectious Disease Kendall Bell, DO [address] [place], [place] [phone] 04/28/2023 Office Visit Family Medicine Brian Domínguez MD [address] [place] [address] 05/05/2023 Office Visit Cardiology Sobia Brewster PAArleen [address] [place] [address] 05/09/2023 Office Visit Gastroenterology Wendy Frias DO [address] [place] [address] Scheduled Procedures Name Priority Associated Diagnoses Date/Ti [...] Additional history exists CKD PHOS USE SMARTSET 93641 10/24/202310/05, 02/18/2022, 02/17/2022, Additional history exists TSH 02/14/2024 02/13/2023, 10/05, 02/28/2022, Additional history exists CKD HGB USE SMARTSET 72534 02/19/202402/18, 02/11/2023, 02/07/2023, Additional history exists Colonoscopy [...] encounter Medical Devices Implanted Type Area Director Skills Device Identifier Shelf Expiration Date Model / Serial / Lot Sut Bob 6 M654g - [id number] Implanted:Qty: 1 on 02/15/2011 at [place] [facility] [place]/A: Chest DO NOT USE 07/21/2015 [id number] / / [id number] documented as of this encounter Advance Directives Documents on File Type Date Recorded 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 Question Answer Comments Discussion of Advance Directives occurred with: Patient Does the patient have a Living Will? No Does the patient have Health Care Power of Garbage Person? No Code Status History Code Status Date [...] the patient have Health Care Power of Garbage Person? No Full Code 02/01/2010 4:02 PM 02/02/2010 4:09 PM This order reflects the patients wishes and were consensually agreed upon. Question Answer Comments Discussion of Advance Directives occurred with: Not Discussed Does the patient have a Living Will? No Does the patient have Health Care Power of Garbage Person? No Healthcare Agents on File Name Relationship Healthcare Agent [facility] Communication Carolyn Ballard Adult Child Health Care Agent Care Teams Fur Polisher Relationship Specialty Start Date End Date Brian Domínguez MD [address] [place] [facility] [place] [address] PCP - General Family Medicine 07/16/17 documented as of this encounter
--- OUTSIDE RECORDS SUMMARY | 2023-05-17 12:10 | External Medical Summary | Summary of Care ---
Author Name Unknown Organization [facility] Address [address] [place] [address] Phone [phone] Care Team Providers Care Chemistry Faculty Member Name Role Phone Carmen Sifuentes MD Primary Care Provider [phone]- [phone] Reason for Visit * Reason Comments eRx-Medication Refill Encounter Details Date Type Department Care Team Description 03/21/[address] [id number] Carmen Sifuentes MD [address] [place] [address] Encounter for long-term (current) use of other medications* Allergies Active Allergy Reactions Severity Noted Date Comments Propoxyphene Hcl Rash Low 10/29/2010 Fentanyl Diarrhea Low 04/26/2010 anxiety Methocarbamol Medium 10/05/2020 Other reaction(s): Delirium Methocarbamol Low 04/15/2007 Zolpidem Low 10/05/2020 Other reaction(s): Confusion documented as of this encounter (statuses as of 03/21/2023) Medications Medication Sig Dispensed Refills Start Date End Date Status ARIPiprazole (ABILIFY) 2 MG Tablet Take 1 Tablet by mouth in the morning. 0 07/11/19 16 Active venlafaxine XR (EFFEXOR XR) 150 MG SE64Hiprslaxwpz:De pression Take 1 Cap by mouth daily. With food. 30 Cap 5 09/02/19 17 Active Additional Information Patient taking differently: 225 mgOral Daily(AM),Taking a total of 225 mg, Indications: Takes 225 mg total every morning with food (150 mg tab + 75 mg tab), Reported on 03/03/2023 Blood Glucose Monitoring Suppl ([employer]-Re[employer]o GLUCOMETER) w/Device KITIndications:Unc ontrolled type 2 diabetes mellitus without complication, without long-term current use of insulin Use as directed. Use as directed once daily 1 Kit 0 11/19/19 18 Active Blood Glucose Monitoring Suppl (Progressive Lighting And Energy SolutionsIO) w/Device KIT Use as directed. Use as directed. 1 Kit 0 11/01/19 19 Active Spacer/Aero-Holdin g Chambers WISAM Use with inhaler. Wheezing/bronchiti s. 1 Device 0 04/08/20 19 Active CardicaTouch Delica Lancets 33G MISC USE UP TO FOUR TIMES A DAY Dx:E11.4 100 Each 5 09/30/19 20 Active Lancet Devices (3Derm SystemsUCH DELICA LANCING DEV) MISC Use four times [...] TWICE DAILY DIRECTED 2700 mL 5 10/05/19 Active Additional Information Patient taking differently: TID(AM/NOON/HS), Reported on 03/03/2023 Budesonide-Formote rol Fumarate 160-4.5 MCG/ACT Inhalation Aerosol (Symbicort) Inhale by mouth 2 Puffs in the morning AND 2 Puffs before bedtime. 10.2 g 12 02/19/20 Active lamoTRIgine 100 MG Oral Tablet (LaMICtal) Take [...] Respimat 2.5 MCG/ACT Inhalation Aerosol Solution (Tiotropium [place] Monohydrate) Inhale by mouth 2 Puffs in [...] 22 Active Vitamin D (Ergocalciferol) 1.25 MG (35729 UT) Oral Capsule (Drisdol)Indicatio ns:Vitamin D deficiency [...] Tablet 1 12/20/19 23 Active UltiCare Pen [place] 31G X 5 MM (Insulin Pen Needle) use TWICE DAILY 200 Each 12/24/19 23 Active Torsemide 20 MG Oral Tablet (Demadex)Indicatio ns:Atherosclerotic heart disease of [place] coronary artery with other forms of angina [...] bedtime 180 Tablet 01/17/20 23 Active Nystatin 409811 UNIT/GM External Powder (Nystop)Indication s:Candidal intertrigo Apply [...] 3 times daily 300 Strip 3 01/17/20 Active Nystatin 652123 UNIT/ML Mouth/Throat Suspension SWISH AND SWALLOW 5ML IN THE MORNING AND 5ML AT NOON AND 5 ML IN THE EVENING AND 5ML BEFORE BEDTIME, FOR THRUSH 240 mL 1 01/29/20 23 Active Potassium Chloride Mag ER 20 MEQ Oral Tablet Extended Release TAKE 1 TABLET BY MOUTH EVERY MORNING. use when taking additional torsemide 30 Tablet 1 01/29/20 23 Active oxyCODONE HCl 5 [...] dinner 90 Tablet 2 03/21/20 23 Active metFORMIN HCl ER 500 MG Oral Tablet Extended Release 24 Hour (Glucophage XR) Take 1 Tablet by mouth daily with dinner. 30 Tablet 5 09/27/19 23 023 Discontinued documented as of this encounter (statuses as of 03/21/2023) Active Problems Problem Noted Date Medical home patient encounter 3 Hypertensive heart and kidne y disease with chronic diastolic congestive heart failure and stage 3a chronic kidney disease 12/28/2021 Last Assessment & Plan: Euvolemic, BP stable EF 55% 09/25 GFR 69 02/25 -Continue Torsemide 20 mg BID, Spironolactone 25 mg BID, Tropol XL 50 mg daily Atherosclerotic heart diseas e of [place] coronary artery with other forms of angina pectoris 11/15/2021 Last Assessment & Plan: Stable. No angina -continue toprol, ASA and statin Seasonal allergies 11/15/2021 Recurrent UTI 10/07/2021 Last Assessment & Plan: Followed by urology Pt is supposed to be on methenamine--will need to clarify with dgt that she is giving this. 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/2014 detention current use of anticoagulant therapy 1 08/18/2005 [...] as of this encounter (statuses as of 03/21/2023) Immunizations Name Administration Dates Next Due COVID-19 [...] encounter Miscellaneous Notes * Telephone Encounter - Saundra Diez [facility] - 03/21/2023 5:51 PM EDTSigned Prescriptions: Disp Refills metFORMIN HCl ER 500 MG Oral Tablet Extend*90 Tab*2 Sig: TAKE 1 TABLET BY MOUTH ONCE DAILY with dinnerAuthorizing Provider: CARMEN SIFUENTES User: SAUNDRA DIEZ * Telephone Encounter - Cheryl Mark [facility] - 03/21/2023 7:57 AM EDT Pending Prescriptions: Disp Refills metFORMIN HCl ER 500 MG Oral Tablet Extend*90 Tab*0 Sig: TAKE 1TABLET BY MOUTH ONCE DAILY with dinner documented in this encounter Plan of Treatment Upcoming Encounters Date Type Specialty Care Team Description 04/03/2023 Telemedicine [facility] Lashay Blevins PA-C [address] [place] [address] Beverly Lozoya, [address] [place] [address] 04/09/2023 Office Visit Urology Alfredo Panda MD [address] [place] [address] 04/23/2023 Office Visit Infectious Disease Kendall Bell, DO [address] [place] [address] 04/28/2023 Office Visit Family Medicine Carmen Sifuentes MD [address] [place] [address] 05/05/2023 Office Visit Cardiology Sobia Brewster PA-C [address] [place] [address] 05/09/2023 Office Visit Gastroenterology Wendy Frias DO [address] [place] [address] Scheduled Orders Name Type Priority Associated Diagnoses Orde r Schedule VITAMIN B12 Lab Routine Encounter for long-term (current) use of other medications Expected: 03/28/2023 (Approximate), Expires: 03/21/2024 Scheduled Procedures Name Priority Associated Diagnoses Date/Ti [...] Additional history exists CKD PHOS USE SMARTSET 19224 10/24/202310/05, 02/18/2022, 02/17/2022, Additional history exists TSH 02/14/2024 02/13/2023, 10/05, 02/28/2022, Additional history exists CKD HGB USE SMARTSET 29615 02/19/202402/18, 02/11/2023, 02/07/2023, Additional history exists Colonoscopy [...] this encounter Medical Devices Implanted Type Area Vulcanizing Machine Operator Device Identifier Shelf Expiration Date Model / Serial / Lot Sut Steel 6 [id number] - [id number] Implanted:Qty: 1 on 02/15/2011 at OR [facility] [place] N/A: Chest DO NOT USE 07/21/2015 [id number] / / [id number] documented as of this encounter Visit Diagnoses Diagnosis Encounter for long-term (current) use of other medications- Primary documented in this encounter Advance Directives Documents on File Type Date Recorded 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 No Code Status History Code Status Date [...] the patient have Health Care Power of Hearing Aid Mechanic? No Full Code 02/01/2010 4:02 PM 02/02/2010 4:09 PM This order reflects the patients wishes and were consensually agreed upon. Question Answer Comments Discussion of Advance Directives occurred with: Not Discussed Does the patient have a Living Will? No Does the patient have Health Care Power of Hearing Aid Mechanic? No Healthcare Agents on File Name Relationship Healthcare Agent [facility] Communication Carolyn Ballard Adult Child Health Care Agent Care Teams Chemistry Faculty Member Relationship Specialty Start Date End Date Carmen Sifuentes MD [address], [place] [phone] PCP - General Family Medicine 07/16/17 documented as of this encounter
--- OUTSIDE RECORDS SUMMARY | 2023-05-17 12:10 | External Medical Summary | Summary of Care ---
Author Name Unknown Organization [facility] Address [address] [place] [address] Phone [phone] Care Team Providers Care Collar Padder Blindstitch Name Role Phone Brian Domínguez MD Primary Care Provider [phone]- [phone] Reason for Visit * Reason Onset Date Comments case management 03/18/2023 Encounter Details Date Type Department Care Team Description 03/18/2023 Front End Developer Telephone Family [facility] [address] [place] [address] Nayla Blackmon, sports management professor Allergies Active Allergy Reactions Severity Noted Date [...] Active venlafaxine XR (EFFEXOR XR) 150 MG XO85Gocmslyrkxs:De pression Take 1 Cap by mouth daily. [...] 0 8 Active Blood Glucose Monitoring Suppl (Locate Special DietTOUCH VERIO) w/Device KIT Use as directed. Use as directed. 1 Kit 0 9 Active Spacer/Aero-Holdin g Chambers WISAM Use with [...] 0 Active Fluticasone Propionate 50 MCG/ACT Nasal SuspensionIndicati [...] 2 Active Lactulose 10 GM/15ML Oral Solution (Constulose)Indica tions:Chronic liver disease and cirrhosis (HCC) TAKE 45 ML BY MOUTH TWICE DAILY DIRECTED 2700 mL 5 2 Active Additional Information Patient taking differently: TID(AM/NOON/HS), Reported on 03/03/2023 Budesonide-Formote rol Fumarate 160-4.5 MCG/ACT Inhalation Aerosol (Symbicort) Inhale by mouth 2 Puffs in the morning AND 2 Puffs before bedtime. 10.2 g 12 2 Active lamoTRIgine 100 MG Oral Tablet (LaMICtal) [...] Respimat 2.5 MCG/ACT Inhalation Aerosol Solution (Tiotropium [place] Monohydrate) Inhale by mouth 2 Puffs in [...] 2 Active Vitamin D (Ergocalciferol) 1.25 MG (87896 UT) Oral Capsule (Drisdol)Indicatio ns:Vitamin D deficiency TAKE ONE CAPSULE BY MOUTH WEEKLY 12 Capsule 3 2 Active Benzonatate 100 MG Oral Capsule (Tessalon Perles) TAKE ONE CAPSULE BY MOUTH THREE TIMES DAILY NEEDED for cough. do not cut, crush or chew 50 Capsule 0 3 Active AIRS Disposable Nebulizer Kit Use as directed 1 Kit 0 3 Active Ipratropium-Alb[place] rol 0.5-2.5 (3) MG/3ML Inhalation [...] and 1 in morning 0 3 Active metFORMIN HCl ER 500 MG Oral Tablet Extended Release 24 Hour (Glucophage XR) Take 1 Tablet by mouth daily with dinner. 30 Tablet 5 3 Active Additional Information Patient taking differently:500 mg Oral DINNER,Unsure if patient is taking, Reported on 03/03/2023 Famotidine 40 MG Oral Tablet (Pepcid)Indication s:Gastroesophageal [...] 3 Active Xifaxan 550 MG Oral Tablet (rifAXIMin)Indicat ions:GONZALEZ (nonalcoholic steatohepatitis),C hronic liver disease and cirrhosis (HCC),Hepatic encephalopathy (HCC) TAKE 1 TABLET BY MOUTH TWICE DAILY 60 Tablet 5 3 Active Montelukast Sodium 10 MG Oral Tablet (Singulair)Indicat ions:Nasal sinus congestion,PND (post-nasal drip) TAKE 1 TABLET BY MOUTH ONCE DAILY 90 Tablet 1 3 Active UltiCare Pen [place] 31G X 5 MM (Insulin Pen Needle) use TWICE DAILY 200 Each 3 3 Active Torsemide 20 MG Oral Tablet (Demadex)Indicatio ns:Atherosclerotic heart disease of [place] coronary artery with other forms of angina pectoris (HCC),Hypertensive heart disease with chronic diastolic congestive heart failure (HCC) TAKE 1 TABLET BY MOUTH EVERY MORNING. MAY TAKE 1 ADDITIONAL TABLET NEEDED FOR SWELLING. 90 Tablet 1 3 Active Spironolactone 50 MG Oral Tablet (Aldactone)Indicat ions:GONZALEZ (nonalcoholic steatohepatitis),P ortal hypertension (HCC),Chronic liver disease and cirrhosis (HCC),Portal hypertensive gastropathy (HCC) Take 1 tablet by mouth in the morning and before bedtime 180 Tablet 3 3 Active Nystatin 128504 UNIT/GM External Powder (Nystop)Indication s:Candidal intertrigo Apply topically to affected area 3 times a day. Apply to right breast until rash resolved. 30 g 0 3 Active Sucralfate 1 GM Oral Tablet (Carafate)Indicati ons:Gastroesophage al reflux disease with esophagitis without hemorrhage TAKE 1 TABLET BY MOUTH EVERY MORNING 90 Tablet 0 3 Active OneTouch Verio In Vitro Strip (Glucose Blood)Indications: Type 2 diabetes mellitus with diabetic neuropathy, with long-term current use of insulin (HCC) use to test blood sugar 3 times daily 300 Strip 3 3 Active Nystatin 976433 UNIT/ML Mouth/Throat Suspension SWISH AND SWALLOW 5ML [...] 3 Active clonazePAM 0.5 MG Oral Tablet (KlonoPIN)Indicati [...] 3 Active Gabapentin 300 MG Oral Capsule (Neurontin)Indicat [...] food until gone. 14 Capsule 0 3 023 Active Boric Acid Vaginal 600 MG Vaginal Suppository Administer 1 Suppository into the vagina at bedtime for 14 days. 14 Suppository 0 3 023 Polyethylene Glycol 3350 17 GM/SCOOP Oral Powder (Miralax) use 1/2 bottle in 32 ounces of gatorade the day before and the day of procedure as directed 238 g 0 3 023 Discontinu ed(Medicat ion List Clean Up) documented as of this encounter (statuses as [...] mg daily Atherosclerotic heart diseas e of [place] coronary artery with other forms of angina pectoris 11/15/2021 Last Assessment & Plan: Stable. No angina -continue toprol, ASA and statin Seasonal allergies 11/15/2021 Recurrent UTI 10/07/2021 Last Assessment & Plan: Followed by urology Pt is supposed to be on methenamine--will need to clarify with dgt that she is giving this. 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/2014 terminal carman current use of anticoagulant therapy 1 08/18/2005 [...] Miscellaneous Notes * Telephone Encounter - Nayla Blackmon RN - 03/21/2023 1:34 PM EDT Late Entry from 03/19/23. Order for covid swab was faxed to [facility]. Awaiting results. Today Spoke with daughter Carolyn, she will get the additional abx started today for the e.coli result seen in the UA. She will call back if covid swab not obtained from . * Addendum Note - Erna Johnston PA-C - 03/18/2023 12:54 PM EDT Addended by: ERNA BLEVINS on: 03/18/2023 12:54 PM Modules accepted: Orders * Addendum Note - Nayla Blackmon RN - 03/18/2023 11:56 AM EDTAddended by: NAYLA BLACKMON on: 03/18/2023 11:56 AM Modules accepted: Orders * Telephone Encounter - Nayla Blackmon RN - 03/18/2023 11:44 AM EDT CM Progress note S: spoke with patients daughterCarolyn. Reports that Angelina is doing okay. Is taking cefdinir for UTI, but would like to ensure that culture showed that it is appropriate for the organism. She reports Angelina is concerned that she has COVID, because her daughter that lives out of the area has this. She would like to be tested for this. She is fatigued, and feels this could be a symptom. Has had a ongoing slight cough, but lungs sound clear. HH PT is coming ever other week due to limited mobility with her leg at this time/ongoing. O: phone call ANIL week 4 follow up A: spoke with Carolyn dc P: Reinforced care plan as previously established, will message Erna Brock PA-C to inquire on placing covid order and f/u of UA results. * Telephone Encounter - Nayla Blackmon RN - 03/18/2023 9:22 AM EDT Follow-up Routine Attempted Phone Call First Attempt Call Outcome Left Voicemail/Message Plan To attempt another outreach documented in this encounter Plan of Treatment Upcoming Encounters Date Type Specialty Care Team Description 04/03/2023 Telemedicine [facility] Erna Blevins PA-C [address] [place] [address] Beverly Lozoya, [facility] [address] [place] [address] 04/09/2023 Office Visit Urology Alfredo Panda MD [address] [place] [address] 04/23/2023 Office Visit Infectious Disease Kendall Bell, DO [address] [place] [address] 04/28/2023 Office Visit Family Medicine Brian Domínguez MD [address] [place] [address] 05/05/2023 Office Visit Cardiology Sobia Brewster PA-C [address] [place] [address] 05/09/2023 Office Visit Gastroenterology Wendy Frias, DO [address] [place] [address] Scheduled Orders Name Type Priority Associated Diagnoses Orde r Schedule SARS-COV-2 (COVID-19), NAAT Lab Routine Upper respiratory tract infection, unspecified type Expected: 03/19/2023 (Approximate), Expires: 09/16/2023 Scheduled Procedures Name Priority Associated Diagnoses Date/Ti [...] Additional history exists CKD PHOS USE SMARTSET 79380 10/24/202310/05, 02/18/2022, 02/17/2022, Additional history exists TSH 02/14/2024 02/13/2023, 10/05, 02/28/2022, Additional history exists CKD HGB USE SMARTSET 78116 02/19/202402/18, 02/11/2023, 02/07/2023, Additional history exists Colonoscopy [...] this encounter Medical Devices Implanted Type Area Formation Testing Operator Device Identifier Shelf Expiration Date Model / Serial / Lot Jenna Rojas 6 M654g - [id number] Implanted:[place] 1 on 02[place]15[place]2011 [place] [facility] [place]: Chest DO NOT USE 07/21/2015 [id number] / / [id number] documented as of this encounter Visit Diagnoses Diagnosis Upper respiratory tract infection, unspecified type- Primary documented in this encounter Advance Directives Documents on File Type Date Recorded Patient 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 Question Answer Comments Discussion of Advance Directives occurred with: Patient Does the patient have a Living Will? No Does the patient have Health Care Power of Potato Inspector? No Code Status History Code Status [...] the patient have Health Care Power of Potato Inspector? No Full Code 02/01/2010 4:02 PM 02/02/2010 4:09 PM This order reflects the patients wishes and were consensually agreed upon. Question Answer Comments Discussion of Advance Directives occurred with: Not Discussed Does the patient have a Living Will? No Does the patient have Health Care Power of Potato Inspector? No Healthcare Agents on File Name Relationship Healthcare Agent [facility] Communication Carolyn Goldmandrewnabila Adult Child Health Care Agent Care Teams Collar Padder Blindstitch Relationship Specialty Start Date End Date Brian Domínguez MD [address] [place] [address] PCP - General Family Medicine 07/16/17 documented as of this encounter
--- OUTSIDE RECORDS SUMMARY | 2023-05-17 12:10 | External Medical Summary | Summary of Care ---
Author Name Unknown Organization [facility] Address [address] [place] [address] Phone [phone] Care Team Providers Care Plate Maker Name Role Phone Brian Domínguez MD Primary Care Provider [phone]- [phone] Reason for Visit * Reason Onset Date Comments case management 03/18/2023 Encounter Details Date Type Department Care Team Description 03/18/2023 Blender Laborer Telephone Family [facility] [address] [place] [address] Nayla Bellamy, director strategic account management Allergies Active Allergy Reactions Severity Noted Date Comments Propoxyphene Hcl Rash Low 10/29/2010 Fentanyl Diarrhea Low 04/26/2010 anxiety Methocarbamol Medium 10/05/2020 Other reaction(s): Delirium Methocarbamol Low 04/15/2007 Zolpidem Low 10/05/2020 Other reaction(s): Confusion documented as of this encounter (statuses as of 03/18/2023) Medications Medication Sig Dispensed Refills Start Date End Date Status ARIPiprazole (ABILIFY) 2 MG Tablet Take 1 Tablet by mouth in the morning. 0 6 Active venlafaxine XR (EFFEXOR XR) 150 MG [id number]:Dep ression Take 1 Cap by mouth daily. [...] 0 8 Active Blood Glucose Monitoring Suppl (Financial Fairy TalesTOUCH VERIO) w/Device KIT Use as directed. Use as directed. 1 Kit 0 9 Active Spacer/Aero-Holding Chambers WISAM Use with inhaler. Wheezing/bronchitis . 1 Device 0 9 Active OneTouch Delica [...] Patient taking differently: TID(AM/NOON/HS), Reported on 03/03/2023 Budesonide-Formoter ol Fumarate 160-4.5 MCG/ACT Inhalation Aerosol [...] Respimat 2.5 MCG/ACT Inhalation Aerosol Solution (Tiotropium [place] Monohydrate) Inhale by mouth 2 Puffs in [...] 2 Active Vitamin D (Ergocalciferol) 1.25 MG (67478 UT) Oral Capsule (Drisdol)Indication s:Vitamin D deficiency [...] on 03/03/2023 Famotidine 40 MG Oral Tablet (Pepcid)Indications :Gastroesophageal [...] 90 Tablet 1 3 Active UltiCare Pen [place] 31G X 5 MM (Insulin Pen Needle) use TWICE DAILY 200 Each 3 3 Active Torsemide 20 MG Oral Tablet (Demadex)Indication s:Atherosclerotic heart disease of [place] coronary artery with other forms of angina [...] bedtime 180 Tablet 3 3 Active Nystatin 854519 UNIT/GM External Powder (Nystop)Indications :Candidal intertrigo Apply [...] daily 300 Strip 3 3 Active Nystatin 978852 UNIT/ML Mouth/Throat Suspension SWISH AND SWALLOW 5ML [...] differently: Taking 1/2 tablet, Reported on 03/03/2023 Boric Acid Vaginal 600 MG Vaginal Suppository Administer 1 Suppository into the vagina at bedtime for 14 days. 14 Suppository 0 3 03/18/20 23 Active Polyethylene Glycol 3350 17 GM/SCOOP Oral Powder (Miralax) use 1/2 bottle in 32 ounces of gatorade the day before and the day of procedure as directed 238 g 0 3 Active documented as of this encounter (statuses as of 03/18/2023) Active Problems Problem Noted Date Medical home patient encounter 3 Hypertensive heart and kidne y disease with chronic diastolic congestive heart failure and stage 3a chronic kidney disease 12/28/2021 Last Assessment & Plan: Euvolemic, BP stable EF 55% 09/25 GFR 69 02/25 -Continue Torsemide 20 mg BID, Spironolactone 25 mg BID, Tropol XL 50 mg daily Atherosclerotic heart diseas e of [place] coronary artery with other forms of angina pectoris 11/15/2021 Last Assessment & Plan: Stable. No angina -continue toprol, ASA and statin Seasonal allergies 11/15/2021 Recurrent UTI 10/07/2021 Last Assessment & Plan: Followed by urology Pt is supposed to be on methenamine--will need to clarify with dgt that she is giving this. 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/2014 penitentiary current use of anticoagulant therapy 1 08/18/2005 [...] as of this encounter (statuses as of 03/18/2023) Immunizations Name Administration Dates Next Due COVID-19 [...] Telephone Encounter - Nayla Bellamy RN - 03/18/2023 9:22 AM EDT Follow-up Routine Attempted Phone Call First Attempt Call Outcome Left Voicemail/Message Plan To attempt another outreach documented in this encounter Plan of Treatment Upcoming Encounters Date Type Specialty Care Team Description 04/03/2023 Telemedicine [facility] Lashay Blevins PA-Peter [address] [place] [address] Beverly Lozoya [address] [place] [address] 04/09/2023 Office Visit Urology Alfredo Panda MD [address] [facility] [address] [place] [address] 04/23/2023 Office Visit Infectious Disease Kendall Bell, DO [address] [place] [address] 04/28/2023 Office Visit Family Medicine Brian Domínguez MD [address] [place] [address] 05/05/2023 Office Visit Cardiology Sobia Brewster PA-C [address] [place] [address] 05/09/2023 Office Visit Gastroenterology Altagracia Wendy ChaudhryDO [address] [place] [address] Scheduled Procedures Name Priority Associated Diagnoses Date/Ti [...] 11/01/2021, Additional history exists GFR 08/21/2023 02/18/2023, 080 02/2023, 02/07/2023, Additional history exists Albumin/Creatinine Ratio 10/24/2023 023, 07/17/2022, 10/05/2020, Additional history exists CKD PHOS USE SMARTSET 39168 10/24/202310/05, 02/18/2022, 02/17/2022, Additional history exists TSH 02/14/2024 02/13/2023, 10/05, 02/28/2022, Additional history exists CKD HGB USE SMARTSET 85264 02/19/202402/18, 02/11/2023, 02/07/2023, Additional history exists Colonoscopy [...] this encounter Medical Devices Implanted Type Area Web Application Tester Device Identifier Shelf Expiration Date Model / Serial / Lot Sut Steel 6 [id number] - [id number] Implanted:Qty: 1 on 02/15/2011 at OR [facility] N/A: Chest DO NOT USE 07/21/2015 [id number] / / [id number] documented as of this encounter Advance Directives Documents on File Type Date Recorded Patient School Psychologist Assistant Expl anation POL 05/06/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 Question Answer Comments Discussion of Advance Directives occurred with: Patient Does the patient have a Living Will? No Does the patient have Health Care Power of Concrete Analyst? No Code Status History Code Status [...] the patient have Health Care Power of Concrete Analyst? No Full Code 02/01/2010 4:02 PM 02/02/2010 4:09 PM This order reflects the patients wishes and were consensually agreed upon. Question Answer Comments Discussion of Advance Directives occurred with: Not Discussed Does the patient have a Living Will? No Does the patient have Health Care Power of Concrete Analyst? No Healthcare Agents on File Name Relationship Healthcare Agent [facility] Communication Carolyntimothy Ballard Adult Child Health Care Agent Care Teams Plate Maker Relationship Specialty Start Date End Date Brian Domínguez MD [address] [place] [address] PCP - General Family Medicine 07/16/17 documented as of this encounter
--- OUTSIDE RECORDS SUMMARY | 2023-05-17 12:10 | External Medical Summary | Summary of Care ---
Author Name Unknown Organization [facility] Address [address] [place] [address] Phone [phone] Care Team Providers Care Chief Orthoptist Name Role Phone Carmen Sifuentes MD Primary Care Provider [phone]- [phone] Reason for Visit * Reason Comments eRx-Medication Refill Encounter Details Date Type Department Care Team Description 03/10/2023 Refill [facility] [address] [place] [address] Carmen Sifuentes MD [address] [place] [address] Allergies Active Allergy Reactions Severity Noted Date Comments Propoxyphene Hcl Rash Low 10/29/2010 Fentanyl Diarrhea Low 04/26/2010 anxiety Methocarbamol Medium 10/05/2020 Other reaction(s): Delirium Methocarbamol Low 04/15/2007 Zolpidem Low 10/05/2020 Other reaction(s): Confusion documented as of this encounter (statuses as of 03/20/2023) Medications Medication Sig Dispensed Refills Start Date End Date Status ARIPiprazole (ABILIFY) 2 MG Tablet Take 1 Tablet by mouth in the morning. 0 6 Active venlafaxine XR (EFFEXOR XR) 150 MG [id number]:De pression Take 1 Cap by mouth daily. With food. 30 Cap 5 7 Active Additional Information Patient taking differently: 225 mgOral Daily(AM),Taking a total of 225 mg, Indications: Takes 225 mg total every morning with food (150 mg tab + 75 mg tab), Reported on 03/03/2023 Blood Glucose Monitoring Suppl (D-WyzeTalk GLUCOMETER) w/Device KITIndications:Unc ontrolled type 2 diabetes mellitus without complication, without long-term current use of insulin Use as directed. Use as directed once daily 1 Kit 0 8 Active Blood Glucose Monitoring Suppl (iJigg.comIO) w/Device KIT Use as directed. Use as directed. 1 Kit 0 9 Active Spacer/Aero-Holdin g Chambers WISAM Use with inhaler. Wheezing/bronchiti s. 1 Device 0 9 Active OneTouch Delica Lancets 33G MISC USE UP TO FOUR TIMES A DAY Dx:E11.4 100 Each 5 0 Active Lancet Devices (HashCubeTOUCH DELICA LANCING DEV) MISC Use four times [...] Respimat 2.5 MCG/ACT Inhalation Aerosol Solution (Tiotropium [place] Monohydrate) Inhale by mouth 2 Puffs in [...] 2 Active Vitamin D (Ergocalciferol) 1.25 MG (19100 UT) Oral Capsule (Drisdol)Indicatio ns:Vitamin D deficiency [...] 90 Tablet 1 3 Active UltiCare Pen [place] 31G X 5 MM (Insulin Pen Needle) use TWICE DAILY 200 Each 3 3 Active Torsemide 20 MG Oral Tablet (Demadex)Indicatio ns:Atherosclerotic heart disease of [place] coronary artery with other forms of angina [...] bedtime 180 Tablet 3 3 Active Nystatin 756486 UNIT/GM External Powder (Nystop)Indication s:Candidal intertrigo Apply [...] daily 300 Strip 3 3 Active Nystatin 221939 UNIT/ML Mouth/Throat Suspension SWISH AND SWALLOW 5ML [...] for constipation 510 g 5 3 Active Boric Acid Vaginal 600 MG Vaginal [...] as of this encounter (statuses as of 03/20/2023) Active Problems Problem Noted Date Medical home patient encounter 3 Hypertensive heart and kidne y disease with chronic diastolic congestive heart failure and stage 3a chronic kidney disease 12/28/2021 Last Assessment & Plan: Euvolemic, BP stable EF 55% 09/25 GFR 69 02/25 -Continue Torsemide 20 mg BID, Spironolactone 25 mg BID, Tropol XL 50 mg daily Atherosclerotic heart diseas e of [place] coronary artery with other forms of angina pectoris 11/15/2021 Last Assessment & Plan: Stable. No angina -continue toprol, ASA and statin Seasonal allergies 11/15/2021 Recurrent UTI 10/07/2021 Last Assessment & Plan: Followed by urology Pt is supposed to be on methenamine--will need to clarify with dgt that she is giving this. 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 Portilol 04/10. ELECTROLYT-FLUID DIS NEC 05/25/2004 014 PREMENSTRUAL TENSION 05/04/2004 11/05/2005 Type 2 diabetes mellitus wit h hemoglobin A1c goal of less than 7.0% 05/04/2004 05/04/2009 Overview: Per Diabetes Taxonomy. diet controlled, 03/07/05 hgba1c 5.4 ICD-10 update of inactive term HTN, goal below 140/90 05/04/2004 0 Overview: Per HTN Taxonomy. Carpal tunnel syndrome 12/31/2002 6 documented as of this encounter (statuses as of 03/20/2023) Immunizations Name Administration Dates Next Due COVID-19 [...] encounter Miscellaneous Notes * Telephone Encounter - Pinky Perry LPN - 03/20/2023 3:25 PM EDT Pt needs Polyethylene Glycol order for an as needed for constipation Can you send an order to [facility] with a new updated order for them to have on file. I spoke with Pharmacy and pt's daughter. They already picked up the order and aware that it is not for procedure and it's PRN. Thanks * Telephone Encounter - Ade Domínguez LPN - 03/13/2023 10:13 AM EDT Attempted to call, no answer, left message to return call When patient calls back, please give the message * Telephone Encounter - Radha Jarquin LPN - 03/11/2023 1:57 PM EDT left message on machine for pt to call office Please relay the below message regarding medication refill Please check with pt - this was pended to me with directions for bowel prep - I don't see that she is having any upcoming procedures. If this is for prn use for constipation, please call pharmacy to cancel and send back to me * Telephone Encounter - Carmen Sifuentes MD - 03/11/2023 9:34 AM EDTSigned Prescriptions: Disp Refills Polyethylene Glycol 3350 17 GM/SCOOP Oral *238 g 0 Sig: use 1/2 bottle in 32 ounces of gatorade the day before and the day of procedure as directed Authorizing Provider: CARMEN SIFUENTES * Telephone Encounter - Carmen Sifuentes MD - 03/11/2023 9:33 AM EDT Please check with pt - this was pended to me with directions for bowel prep - I don't see that she is having any upcoming procedures. If this is for prn use for constipation, please call pharmacy to cancel and send back to me * Telephone Encounter - Liz Lazcano LPN - 03/11/2023 8:59 AM EDTPending Prescriptions: Disp Refills Polyethylene Glycol 3350 17 GM/SCOOP Oral *238 g 0 Sig: use 1/2 bottle in 32 ounces of gatorade the day before and the day of procedure as directed * Telephone Encounter - Liz Lazcano LPN - 03/11/2023 8:50 AM EDT Provider to address: Pending Prescriptions: Disp Refills Polyethylene Glycol 3350 17 GM/SCOOP Oral*238 g 0 Sig: use 1/2 bottle in 32 ounces of gatorade the day before and the day of procedure as directed Last Visit: 02/24/2023 (in office), 03/06/2022 (telemedicine) Next Visit: 04/28/2023 Last date the medication was ordered: 12/19/2022 Patient Active Problem List Diagnosis Code PERONEAL MUSCLE ATROPHY G60.0 Gastroesophageal reflux disease without esophagitis K21.9 S/P angioplasty with stent Z95.820 Dyslipidemia, goal LDL below 70 E78.5 Hypothyroidism E03.9 GONZALEZ (nonalcoholic steatohepatitis) K75.81 Bipolar I disorder, most recent episode depressed, moderate (HCC) F31.32 HTN, goal below 130/80 I10 MEDICATION USE AGREEMENT AJ1705 Cmtzfor-Gblwq-Frbev disease G60.0 Anxiety F41.9 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, T40.601A Hypertensive heart disease with chronic diastolic congestive heart failure (HCC) I11.0, I50.32 Fatty liver K76.0 Chronic liver disease and cirrhosis (HCC) K74.60, K76.9 Portal hypertensive gastropathy (HCC) K76.6, K31.89 Moderate aortic stenosis I35.0 Type 2 diabetes mellitus with diabetic neuropathy (HCC) E11.40 Diabetic gastroparesis (HCC) E11.43, K31.84 terminal operations supervisor (current) use of insulin (HCC) Z79.4 Pelvic pain R10.2 Urge incontinence N39.41 Type 2 diabetes mellitus with diabetic neuropathy, with long-term current use of insulin (HCC) E11.40, Z79.4 Type 2 diabetes mellitus with stage 3a chronic kidney disease, with long-term current use of insulin ([facility]) E11.22, N18.31, Z79.4 Recurrent UTI N39.0 Atherosclerotic heart disease of [place] coronary artery with other forms of angina pectoris ([facility]) I25.118 Seasonal allergies J30.2 Hypertensive heart and kidney disease with chronic diastolic congestive heart failure and stage 3a chronic kidney disease ([facility]) I13.0, I50.32, N18.31 Medical home patient encounter Z00.8 Labs: Lab Results Component Value Date/Time CREATININE - [facility] 0.9 02/18/2023 05:40 AM CREATININE - [facility] 1.0 07/18/2020 12:20 PM CREATININE, RANDOM URINE - [facility] 41 10/23/2022 10:59 AM CREATININE, RANDOM URINE - [facility] 144 07/16/2017 12:06 PM CREATININE-OUTSIDE LAB 1.13 02/26/2021 12:00 AM Lab Results Component Value Date/Time POTASSIUM - [facility] 3.7 02/18/2023 05:40 AM POTASSIUM - [facility] 4.6 07/18/2020 12:20 PM POTASSIUM, WHOLE BLOOD - [facility] 4.5 02/15/2011 04:02 PM POTASSIUM-OUTSIDE LAB 4.0 02/26/2021 12:00 AM Lab Results Component Value Date/Time TSH - [facility] 4.06 02/13/2023 05:30 AM TSH - [facility] 1.47 05/22/2020 01:24 PM Lab Results Component Value Date/Time LDL (CALCULATED)-OUTSIDE LAB 41 02/05/2016 12:00 AM LDL CHOLESTEROL (CALCULATED) - [facility] 35 10/23/2022 10:46 AM LDL CHOLESTEROL (CALCULATED) - [facility] 39 02/18/2019 02:55 PM LDL CHOLESTEROL (CALCULATED) - [facility] 35 10/30/2016 02:07 PM LDL CHOLESTEROL (DIRECT MEASURE) - [facility] 94 08/28/2021 01:59 PM LDL CHOLESTEROL (DIRECT MEASURE) - [facility] 91 05/22/2020 01:24 PM LDL CHOLESTEROL (DIRECT MEASURE) - [facility] NOT APPLICABLE 02/18/2019 02:55 PM LDL CHOLESTEROL (DIRECT MEASURE) - [facility] 40 02/12/2018 01:51 PM Lab Results Component Value Date/Time ALT - [facility] 16 10/23/2022 10:46 AM ALT - [facility] 26 05/22/2020 01:24 PM Hemoglobin AIC Results: Lab Results Component Value Date/Time HEMOGLOBIN A1C - [facility] 6.3 (H) 10/23/2022 10:46 AM HEMOGLOBIN A1C - [facility] 5.6 04/25/2022 04:45 PM HEMOGLOBIN A1C - [facility] 8.3 (H) 11/01/2021 03:47 PM HEMOGLOBIN A1C - [facility] 5.9 (H) 05/22/2020 01:24 PM HEMOGLOBIN A1C - [facility] 6.1 (H) 12/14/2019 01:10 PM HEMOGLOBIN A1C - [facility] 6.3 (H) 02/18/2019 02:55 PM Reason for Call: eRx-Medication Refill Contact: [facility] Contact Type: Medication Total Time including non face to face (minutes): 5 * Telephone Encounter - Marine Jacob - 03/10/2023 5:01 PM EDTPending Prescriptions: Disp Refills Polyethylene Glycol 3350 17 GM/SCOOP Oral *238 g 0 Sig: use 1/2bottle in 32 ounces of gatorade the day before and the day of procedure as directed documented in this encounter Plan of Treatment Upcoming Encounters Date Type Specialty Care Team Description 04/03/2023 [facility]icine [facility] [address] [facility] [address] Beverly Loz[facility], [facility] [address] [place] [id number] 04/09/2023 Office Visit Urology Alfredo Panda MD [address] [place] [address] 04/23/2023 Office Visit Infectious Disease Kendall Bell, DO [address] [place] [address] 04/28/2023 Office Visit Family Medicine Carmen Sifuentes MD [address] [place] [address] 05/05/2023 Office Visit Cardiology Sobia Brewster PA-C [address] [place] [address] 05/09/2023 Office Visit Gastroenterology Wendy Frias, DO [address] [place] [address] Scheduled Procedures Name Priority Associated Diagnoses Date/Ti [...] Additional history exists CKD PHOS USE SMARTSET 56601 10/24/202310/05, 02/18/2022, 02/17/2022, Additional history exists TSH 02/14/2024 02/13/2023, 10/05, 02/28/2022, Additional history exists CKD HGB USE SMARTSET 59533 02/19/202402/18, 02/11/2023, 02/07/2023, Additional history exists Colonoscopy [...] this encounter Medical Devices Implanted Type Area Student Accounts Coordinator Device Identifier Shelf Expiration Date Model / Serial / Lot Sut Steel 6 [id number] - [id number] Implanted:Qty: 1 on 02/15/2011 at OR [facility] N/A: Chest DO NOT USE 07/21/2015 [id number] / / [id number] documented as of this encounter Advance Directives Documents on File Type Date Recorded Patient Clay Miller Expl anation POL 05/06/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 Question Answer Comments Discussion of Advance Directives occurred with: Patient Does the patient have a Living Will? No Does the patient have Health Care Power of Primary Health Care Nurse? No Code Status History Code Status [...] the patient have Health Care Power of Primary Health Care Nurse? No Full Code 02/01/2010 4:02 PM 02/02/2010 4:09 PM This order reflects the patients wishes and were consensually agreed upon. Question Answer Comments Discussion of Advance Directives occurred with: Not Discussed Does the patient have a Living Will? No Does the patient have Health Care Power of Primary Health Care Nurse? No Healthcare Agents on File Name Relationship Healthcare Agent [facility] Communication Carolyn Ballard Adult Child Health Care Agent Care Teams Chief Orthoptist Relationship Specialty Start Date End Date Carmen Sifuentes MD [address] [place] [address] PCP - General Family Medicine 07/16/17 documented as of this encounter
--- OUTSIDE RECORDS SUMMARY | 2023-05-17 12:10 | External Medical Summary | Summary of Care ---
Author Name Unknown Organization [facility] Address [address] [place] [address] Phone [phone] Care Team Providers Care Sales Engagement Executive Name Role Phone Brian Domínguez MD Primary Care Provider [phone]- [phone] Reason for Visit * Reason Onset Date Comments case management 03/18/2023 Encounter Details Date Type Department Care Team Description 03/18/2023 Dental Assistant Teacher Telephone Family [facility] [address] [place] [address] Nayla Blackmon, farm management teacher Allergies Active Allergy Reactions Severity Noted Date [...] Active venlafaxine XR (EFFEXOR XR) 150 MG NA30Otlhswyvstm:Dep ression Take 1 Cap by mouth daily. [...] 0 8 Active Blood Glucose Monitoring Suppl (SportsMEDIA TechnologyTOUCH VERIO) w/Device KIT Use as directed. Use [...] Respimat 2.5 MCG/ACT Inhalation Aerosol Solution (Tiotropium [place] Monohydrate) Inhale by mouth 2 Puffs in [...] 2 Active Vitamin D (Ergocalciferol) 1.25 MG (59471 UT) Oral Capsule (Drisdol)Indication s:Vitamin D deficiency [...] 90 Tablet 1 3 Active UltiCare Pen [place] 31G X 5 MM (Insulin Pen Needle) use TWICE DAILY 200 Each 3 3 Active Torsemide 20 MG Oral Tablet (Demadex)Indication s:Atherosclerotic heart disease of [place] coronary artery with other forms of angina [...] bedtime 180 Tablet 3 3 Active Nystatin 445782 UNIT/GM External Powder (Nystop)Indications :Candidal intertrigo Apply [...] daily 300 Strip 3 3 Active Nystatin 999476 UNIT/ML Mouth/Throat Suspension SWISH AND SWALLOW 5ML [...] as directed 238 g 0 3 Active Nitrofurantoin Monohyd Macro 100 MG Oral Capsule (Macrobid) Take 1 Capsule by mouth in the morning and 1 Capsule before bedtime. Do all this for 7 days. With food until gone. 14 Capsule 0 3 03/25/20 23 Active documented as of this encounter [...] mg daily Atherosclerotic heart diseas e of [place] coronary artery with other forms of angina pectoris 11/15/2021 Last Assessment & Plan: Stable. No angina -continue toprol, ASA and statin Seasonal allergies 11/15/2021 Recurrent UTI 10/07/2021 Last Assessment & Plan: Followed by urology Pt is supposed to be on methenamine--will need to clarify with dgt that she is giving this. 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 Reports that Angelina is doing okay. Is [...] week 4 follow up A: spoke with daughterCarolyn P: Reinforced care plan as previously established, [...] [facility] Erna Blevins PA-C [address] [place] [address] [facility] [address] [place] [address] 04/09/2023 Office Visit Urology Alfredo Panda MD [address] [id number] 04/23/2023 Office Visit Infectious Disease Kendall Bell, DO [address] [place] [address] 04/28/2023 Office Visit Family Medicine Brian Domínguez MD [address] [place], [place] [phone] 05/05/2023 Office Visit Cardiology Sobia Brewster PA-C [address] [place] [address] 05/09/2023 Office Visit Gastroenterology Wendy Frias DO [address] [place] [address] Scheduled Orders Name Type Priority Associated Diagnoses [...] Additional history exists CKD PHOS USE SMARTSET 47116 10/24/202310/05, 02/18/2022, 02/17/2022, Additional history exists TSH 02/14/2024 02/13/2023, 10/05, 02/28/2022, Additional history exists CKD HGB USE SMARTSET 15940 02/19/202402/18, 02/11/2023, 02/07/2023, Additional history exists Colonoscopy [...] this encounter Medical Devices Implanted Type Area Corporate Manager Device Identifier Shelf Expiration Date Model / Serial / Lot Sut Bob 6 [id number] - [id number] [place]ed:Q[place] 1 on [place] [facility] [place] Chest DO NOT USE 07/21/2015 [id number] / / [id number] documented as of this encounter Visit Diagnoses Diagnosis Upper respiratory tract infection, unspecified type- Primary documented in this encounter Advance Directives Documents on File Type Date Recorded Patient Rn Flight Expl 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 Question Answer Comments Discussion of Advance Directives occurred with: Patient Does the patient have a Living Will? No Does the patient have Health Care Power of Personnel Research Psychologist? No Code Status History Code Status Date Activated Date Inactivated Comments Full Code 02/15/2011 5:07 PM 02/21/2011 5:20 PM This order reflects the patients wishes and were consensually agreed upon. Full Code 02/11/2011:42 PM 02/15/2011 12:17 PM This order reflects [...] the patient have Health Care Power of Personnel Research Psychologist? No Full Code 02/01/2010 4:02 PM 02/02/2010 4:09 PM This order reflects the patients wishes and were consensually agreed upon. Question Answer Comments Discussion of Advance Directives occurred with: Not Discussed Does the patient have a Living Will? No Does the patient have Health Care Power of Personnel Research Psychologist? No Healthcare Agents on File Name Relationship Healthcare Agent [facility] p Communication Carolyn Elio Adult Child Health Care Agent Care Teams Sales Engagement Executive Relationship Specialty Start Date End Date Brian Domínguez MD [address] [place] [address] PCP - General Family Medicine 07/16/17 documented as of this encounter
--- OUTSIDE RECORDS SUMMARY | 2023-05-17 12:10 | External Medical Summary | Summary of Care ---
Author Name Unknown Organization [facility] Address [address] [place] [address] Phone [phone] Care Team Providers Care Jewelry Sales Associate Name Role Phone Brian Domínguez MD Primary Care Provider [phone]- [phone] Reason for Visit * Reason Onset Date Comments case management 03/18/2023 Encounter Details Date Type Department Care Team Description 03/18/2023 Communication Studies Professor Telephone Family [facility] [address] [place] [address] Nayla Blackmon, enrollment management manager Allergies Active Allergy Reactions Severity Noted Date [...] Active venlafaxine XR (EFFEXOR XR) 150 MG [id number]:Dep ression Take 1 Cap by mouth daily. [...] 0 8 Active Blood Glucose Monitoring Suppl ([place] RistoranteTOUCH VERIO) w/Device KIT Use as directed. Use [...] Respimat 2.5 MCG/ACT Inhalation Aerosol Solution (Tiotropium [place] Monohydrate) Inhale by mouth 2 Puffs in [...] 2 Active Vitamin D (Ergocalciferol) 1.25 MG (30934 UT) Oral Capsule (Drisdol)Indication s:Vitamin D deficiency [...] 90 Tablet 1 3 Active UltiCare Pen [place] 31G X 5 MM (Insulin Pen Needle) use TWICE DAILY 200 Each 3 3 Active Torsemide 20 MG Oral Tablet (Demadex)Indication s:Atherosclerotic heart disease of [place] coronary artery with other forms of angina [...] bedtime 180 Tablet 3 3 Active Nystatin 423728 UNIT/GM External Powder (Nystop)Indications :Candidal intertrigo Apply [...] daily 300 Strip 3 3 Active Nystatin 151646 UNIT/ML Mouth/Throat Suspension SWISH AND SWALLOW 5ML [...] mg daily Atherosclerotic heart diseas e of [place] coronary artery with other forms of angina pectoris 11/15/2021 Last Assessment & Plan: Stable. No angina -continue toprol, ASA and statin Seasonal allergies 11/15/2021 Recurrent UTI 10/07/2021 Last Assessment & Plan: Followed by urology Pt is supposed to be on methenamine--will need to clarify with dgt that she is giving this. 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 PT is coming ever other week due to limited mobility with her leg at this time/ongoing. O: phone call ANIL week 4 follow up A: spoke with daughterCarolyn P: Reinforced care plan as previously established, will message Lashay Brock PA-C to inquire on placing covid [...] [facility] Lashay Blevins PA-C [address] [place] [address] [facility], [address] [place] [address] 04/09/2023 Office Visit Urology Alfredo Panda MD [address] [place], [place] [phone] 04/23/2023 Office Visit Infectious Disease Kendall Bell, DO [address] [place] [address] 04/28/2023 Office Visit Family Medicine Brian Domínguez MD [address] [place] [address] 05/05/2023 Office Visit Cardiology Sobia Brewster PA-C [address] [place] [address] 05/09/2023 Office Visit Gastroenterology Wendy Frias, DO [address] [place] [address] Scheduled Procedures Name Priority Associated Diagnoses Date/Ti [...] Additional history exists CKD PHOS USE SMARTSET 51712 10/24/202310/05, 02/18/2022, 02/17/2022, Additional history exists TSH 02/14/2024 02/13/2023, 10/05, 02/28/2022, Additional history exists CKD HGB USE SMARTSET 60008 02/19/202402/18, 02/11/2023, 02/07/2023, Additional history exists Colonoscopy [...] this encounter Medical Devices Implanted Type Area Datawarehouse Developer Device Identifier Shelf Expiration Date Model / Serial / Lot Jenna Denny M654g - [id number] [place]ed:[place] [facility] [place] Chest DO NOT USE 07/21/2015 [id number] / / [id number] documented as of this encounter Advance Directives Documents on File Type Date Recorded Patient Load Dropper 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 Question Answer Comments Discussion of Advance Directives occurred with: Patient Does the patient have a Living Will? No Does the patient have Health Care Power of Crime Scene Investigator? No Code Status History Code Status Date [...] the patient have Health Care Power of Crime Scene Investigator? No Full Code 02/01/2010 4:02 PM 02/02/2010 4:09 PM This order reflects the patients wishes and were consensually agreed upon. Question Answer Comments Discussion of Advance Directives occurred with: Not Discussed Does the patient have a Living Will? No Does the patient have Health Care Power of Crime Scene Investigator? No Healthcare Agents on File Name Relationship Healthcare Agent [facility] Communication Carolyn Ballard Adult Child Health Care Agent Care Teams Jewelry Sales Associate Relationship Specialty Start Date End Date Brian Domínguez MD [address] [place] [address] PCP - General Family Medicine 07/16/17 documented as of this encounter
--- OUTSIDE RECORDS SUMMARY | 2023-05-17 12:10 | External Medical Summary | Summary of Care ---
Author Name Unknown Organization [facility] Address [address] [place] [address] Phone [phone] Care Team Providers Care Gusset Folder Name Role Phone Brian Domínguez MD Primary Care Provider [phone]- [phone] Reason for Visit * Reason Onset Date Comments case management 03/18/2023 Encounter Details Date Type Department Care Team Description 03/18/2023 Branch Sales Manager Telephone Family [facility] [address] [place] [address] Nayla Blackmon, property management intern Allergies Active Allergy Reactions Severity Noted Date [...] Active venlafaxine XR (EFFEXOR XR) 150 MG [id number]:Dep ression Take 1 Cap by mouth daily. [...] 0 8 Active Blood Glucose Monitoring Suppl (AktivitoTOUCH VERIO) w/Device KIT Use as directed. Use [...] Respimat 2.5 MCG/ACT Inhalation Aerosol Solution (Tiotropium [place] Monohydrate) Inhale by mouth 2 Puffs in [...] 2 Active Vitamin D (Ergocalciferol) 1.25 MG (08647 UT) Oral Capsule (Drisdol)Indication s:Vitamin D deficiency [...] 90 Tablet 1 3 Active UltiCare Pen [place] 31G X 5 MM (Insulin Pen Needle) use TWICE DAILY 200 Each 3 3 Active Torsemide 20 MG Oral Tablet (Demadex)Indication s:Atherosclerotic heart disease of [place] coronary artery with other forms of angina [...] bedtime 180 Tablet 3 3 Active Nystatin 364032 UNIT/GM External Powder (Nystop)Indications :Candidal intertrigo Apply [...] daily 300 Strip 3 3 Active Nystatin 849376 UNIT/ML Mouth/Throat Suspension SWISH AND SWALLOW 5ML [...] mg daily Atherosclerotic heart diseas e of [place] coronary artery with other forms of angina pectoris 11/15/2021 Last Assessment & Plan: Stable. No angina -continue toprol, ASA and statin Seasonal allergies 11/15/2021 Recurrent UTI 10/07/2021 Last Assessment & Plan: Followed by urology Pt is supposed to be on methenamine--will need to clarify with dgt that she is giving this. 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 1 08/18/2005 [...] [facility] Erna Blevins PA-C [address] [place] [address] [facility] [address] [place] [address] 04/09/2023 Office Visit Urology Alfredo Panda MD [address] [phone] 04/23/2023 Office Visit Infectious Disease Kendall Bell, DO [address] [place] [address] 04/28/2023 Office Visit Family Medicine Brian Domínguez MD [address] [place], [place] [phone] 05/05/2023 Office Visit Cardiology Sobia Brewster PA-C [address] [place] [address] 05/09/2023 Office Visit Gastroenterology Wendy Frias DO [address] [place] [address] Scheduled Orders Name Type Priority Associated Diagnoses [...] Additional history exists CKD PHOS USE SMARTSET 32199 10/24/202310/05, 02/18/2022, 02/17/2022, Additional history exists TSH 02/14/2024 02/13/2023, 10/05, 02/28/2022, Additional history exists CKD HGB USE SMARTSET 15272 02/19/202402/18, 02/11/2023, 02/07/2023, Additional history exists Colonoscopy [...] this encounter Medical Devices Implanted Type Area Ceramics Test Engineer Device Identifier Shelf Expiration Date Model / Serial / Lot Sut Bob 6 M654g - [id number] Implanted:Qty: 1 on 02/15/2011 [place] [facility] [place]A: Chest DO NOT USE 07/21/2015 M654G / / [id number] documented as of this encounter Visit Diagnoses Diagnosis Upper respiratory tract infection, unspecified type- Primary documented in this encounter Advance Directives Documents on File Type Date Recorded Patient Piece Worker Expl anation DURAN 05/06/2018 POL Latest [...] the patient have Health Care Power of Slate Cutter Operator? No Code Status History Code Status [...] the patient have Health Care Power of Slate Cutter Operator? No Full Code 02/01/2010 4:02 PM 02/02/2010 4:09 PM This order reflects the patients wishes and were consensually agreed upon. Question Answer Comments Discussion of Advance Directives occurred with: Not Discussed Does the patient have a Living Will? No Does the patient have Health Care Power of Slate Cutter Operator? No Healthcare Agents on File Name Relationship Healthcare Agent [facility] p Communication Carolyn Elio Adult Child Health Care Agent Care Teams Gusset Folder Relationship Specialty Start Date End Date Brian Domínguez MD [address] [place] [address] PCP - General Family Medicine 07/16/17 documented as of this encounter
--- OUTSIDE RECORDS SUMMARY | 2023-05-17 12:11 | External Medical Summary | Summary of Care ---
Author Name Unknown Organization [facility] Address [address] [place] [address] Phone [phone] Care Team Providers Care Travel Coordinator Name Role Phone Brian Domínguez MD Primary Care Provider [phone]- [phone] Reason for Visit * Reason Onset Date Comments Advice 03/13/2023 Encounter Details Date Type Department Care Team Description 03/13/2023 Telephone [facility], [place] [address] [place] [address] Lashay Blevins PA-C [address] [place] [address] Advice Allergies Active Allergy Reactions Severity Noted Date Comments Propoxyphene Hcl Rash Low 10/29/2010 Fentanyl Diarrhea Low 04/26/2010 anxiety Methocarbamol Medium 10/05/2020 Other reaction(s): Delirium Methocarbamol Low 04/15/2007 Zolpidem Low 10/05/2020 Other reaction(s): Confusion documented as of this encounter (statuses as of 03/13/2023) Medications Medication Sig Dispensed Refills Start Date End Date Status ARIPiprazole (ABILIFY) 2 MG Tablet Take 1 Tablet by mouth in the morning. 0 6 Active venlafaxine XR (EFFEXOR XR) 150 MG [id number]:Dep ression Take 1 Cap by mouth daily. [...] 0 8 Active Blood Glucose Monitoring Suppl (One MojaIO) w/Device KIT Use as directed. Use as directed. 1 Kit 0 9 Active Spacer/Aero-Holding Chambers WISAM Use with inhaler. Wheezing/bronchitis . 1 Device 0 9 Active KiteDeskTouch Delica Lancets 33G MISC USE UP TO FOUR TIMES A DAY Dx:E11.4 100 Each 5 0 Active Lancet Devices (SolaborateTOUCH DELICA LANCING DEV) MISC Use four times [...] Glargine Solostar 100 UNIT/ML Subcutaneous Solution Pen-injector (382 Communicationsaglar KwikPen)Indications :Type 2 diabetes mellitus with diabetic [...] Respimat 2.5 MCG/ACT Inhalation Aerosol Solution (Tiotropium Velpen Monohydrate) Inhale by mouth 2 Puffs in [...] 2 Active Vitamin D (Ergocalciferol) 1.25 MG (78260 UT) Oral Capsule (Drisdol)Indication s:Vitamin D deficiency [...] 90 Tablet 1 3 Active UltiCare Pen [place] 31G X 5 MM (Insulin Pen Needle) use TWICE DAILY 200 Each 3 3 Active Torsemide 20 MG Oral Tablet (Demadex)Indication s:Atherosclerotic heart disease of [place] coronary artery with other forms of angina [...] bedtime 180 Tablet 3 3 Active Nystatin 023532 UNIT/GM External Powder (Nystop)Indications :Candidal intertrigo Apply [...] daily 300 Strip 3 3 Active Nystatin 906621 UNIT/ML Mouth/Throat Suspension SWISH AND SWALLOW 5ML [...] as of this encounter (statuses as of 03/13/2023) Active Problems Problem Noted Date Medical home patient encounter 3 Hypertensive heart and kidne y disease with chronic diastolic congestive heart failure and stage 3a chronic kidney disease 12/28/2021 Last Assessment & Plan: Euvolemic, BP stable EF 55% 09/25 GFR 69 02/25 -Continue Torsemide 20 mg BID, Spironolactone 25 mg BID, Tropol XL 50 mg daily Atherosclerotic heart diseas e of [place] coronary artery with other forms of angina pectoris 11/15/2021 Last Assessment & Plan: Stable. No angina -continue toprol, ASA and statin Seasonal allergies 11/15/2021 Recurrent UTI 10/07/2021 Last Assessment & Plan: Followed by urology Pt is supposed to be on methenamine--will need to clarify with dgt that she is giving this. 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 Anxiety 08/05/2017 Mcuyush-Lrftj-Ngxjl disease 06/27/2015 Last Assessment & Plan: Frequent [...] as of this encounter (statuses as of 03/13/2023) Resolved Problems Problem Noted Date Resolved Date [...] 05/06/2018 019 Atherosclerotic heart diseas e of [place] coronary artery with other forms of angina [...] 10/31/201008/08 Acute coronary syndrome 10/30/2010 01/22/20 14 [place] Research Other*[id number] 02/02/2010 04/18/2014 Overview: [place] [facility], Dr Joel Kwon PI Obesity, morbid [...] thrombosis 06/17/2006 01/21/2014 FDC current use of anticoagulant therapy 1 08/18/2005 [...] as of this encounter (statuses as of 03/13/2023) Immunizations Name Administration Dates Next Due COVID-19 [...] Telephone Encounter - Lashay Johnston PA-C - 03/13/2023 10:29 AM EDT Patient's daughter called as she has had change in urine smell and color over the last couple days.She is noting that is mom is more sleepy than usual and seems off. She has an indwelling mejia catheter in place. Angelina has grown various organisms on urine cultures in the past. Recommended she collect a culture, order placed. She has Cefdinir on hand to take after the culture is collected. Advised to reach out if S/S worsen. documented in this encounter Plan of Treatment Upcoming Encounters Date Type Specialty Care Team Description 04/03/2023 [facility]medicine [facility] [address] [facility] [address] Beverly Lozoya, [facility] Pump Rebuilder [address] [place] [address] [place] [address] 04/09/2023 Office Visit Urology Alfredo Panda MD [address] [facility] [address] 04/23/2023 Office Visit Infectious Disease Kendall Bell, DO [address] [place] [address] 04/28/2023 Office Visit Family Medicine Brian Domínguez MD [address] [place] [address] 05/05/2023 Office Visit Cardiology Sobia Brewster PA-C [address] [place] [address] 05/09/2023 Office Visit Gastroenterology Wendy Frias, DO [address] [place] [address] Scheduled Orders Name Type Priority Associated Diagnoses Orde r Schedule CULTURE, URINE, QUANTITATIVE Lab STAT Altered mental status, unspecified altered mental status type Expected: 03/13/2023, Expires: 03/13/2024 Scheduled Procedures Name Priority Associated Diagnoses Date/Ti [...] Additional history exists CKD PHOS USE SMARTSET 56576 10/24/202310/05, 02/18/2022, 02/17/2022, Additional history exists TSH 02/14/2024 02/13/2023, 10/05, 02/28/2022, Additional history exists CKD HGB USE SMARTSET 57351 02/19/202402/18, 02/11/2023, 02/07/2023, Additional history exists Colonoscopy [...] this encounter Medical Devices Implanted Type Area Supervisor Boilermaking Shop Device Identifier Shelf Expiration Date Model / Serial / Lot Jenna Rojas 6 [id number] - [id number] Implanted:Qty: 1 on 02/15/2011 at OR [facility] [place] N/A: Chest DO NOT USE 07/21/2015 [id number] / / [id number] documented as of this encounter Visit Diagnoses Diagnosis History of urine color changes- Primary Altered mental status, unspecified altered mental status type documented in this encounter Advance Directives Documents on File Type Date Recorded Patient Satellite Specialist Jose GARZON 05/06/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 Question Answer Comments Discussion of Advance Directives occurred with: Patient Does the patient have a Living Will? No Does the patient have Health Care Power of Ground Source Heat Pump Technician? No Code Status History Code Status [...] the patient have Health Care Power of Ground Source Heat Pump Technician? No Full Code 02/01/2010 4:02 PM 02/02/2010 4:09 PM This order reflects the patients wishes and were consensually agreed upon. Question Answer Comments Discussion of Advance Directives occurred with: Not Discussed Does the patient have a Living Will? No Does the patient have Health Care Power of Ground Source Heat Pump Technician? No Healthcare Agents on File Name Relationship Healthcare Agent [facility] Communication Carolyn Goldmangerard Adult Child Health Care Agent Care Teams Travel Coordinator Relationship Specialty Start Date End Date Brian Domínguez MD [address] [place] [address] PCP - General Family Medicine 07/16/17 documented as of this encounter
--- OUTSIDE RECORDS SUMMARY | 2023-05-17 12:11 | External Medical Summary | Summary of Care ---
Author Name Unknown Organization [facility] Address [address] [place] [address] Phone [phone] Care Team Providers Care Client Manager Large Law Name Role Phone Brian Domínguez MD Primary Care Provider [phone]- [phone] Encounter Details Date Type Department Care Team Description 03/14/2023 Result Scan Unspecified Department Brian Domínguez MD [address] [place] [address] <No scans attached> Allergies Active Allergy Reactions Severity Noted Date Comments Propoxyphene Hcl Rash Low 10/29/2010 Fentanyl Diarrhea Low 04/26/2010 anxiety Methocarbamol Medium 10/05/2020 Other reaction(s): Delirium Methocarbamol Low 04/15/2007 Zolpidem Low 10/05/2020 Other reaction(s): Confusion documented as of this encounter (statuses as of 03/17/2023) Medications Medication Sig Dispensed Refills Start Date End Date Status ARIPiprazole (ABILIFY) 2 MG Tablet Take 1 Tablet by mouth in the morning. 0 6 Active venlafaxine XR (EFFEXOR XR) 150 MG [id number]:Dep ression Take 1 Cap by mouth daily. [...] 0 8 Active Blood Glucose Monitoring Suppl (Neosens VERIO) w/Device KIT Use as directed. Use [...] Respimat 2.5 MCG/ACT Inhalation Aerosol Solution (Tiotropium [place] Monohydrate) Inhale by mouth 2 Puffs in [...] 2 Active Vitamin D (Ergocalciferol) 1.25 MG (75516 UT) Oral Capsule (Drisdol)Indication s:Vitamin D deficiency [...] 90 Tablet 1 3 Active UltiCare Pen [place] 31G X 5 MM (Insulin Pen Needle) use TWICE DAILY 200 Each 3 3 Active Torsemide 20 MG Oral Tablet (Demadex)Indication s:Atherosclerotic heart disease of [place] coronary artery with other forms of angina [...] bedtime 180 Tablet 3 3 Active Nystatin 149167 UNIT/GM External Powder (Nystop)Indications :Candidal intertrigo Apply [...] daily 300 Strip 3 3 Active Nystatin 247881 UNIT/ML Mouth/Throat Suspension SWISH AND SWALLOW 5ML [...] I disorder, most recent episode depressed, moderate ([facility]) TAKE ONE TABLET BY MOUTH THREE TIMES [...] as of this encounter (statuses as of 03/17/2023) Active Problems Problem Noted Date Medical home patient encounter 3 Hypertensive heart and kidne y disease with chronic diastolic congestive heart failure and stage 3a chronic kidney disease 12/28/2021 Last Assessment & Plan: Euvolemic, BP stable EF 55% 09/25 GFR 69 02/25 -Continue Torsemide 20 mg BID, Spironolactone 25 mg BID, Tropol XL 50 mg daily Atherosclerotic heart diseas e of [place] coronary artery with other forms of angina pectoris 11/15/2021 Last Assessment & Plan: Stable. No angina -continue toprol, ASA and statin Seasonal allergies 11/15/2021 Recurrent UTI 10/07/2021 Last Assessment & Plan: Followed by urology Pt is supposed to be on methenamine--will need to clarify with dgt that she is giving this. 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/2014 intermission coordinator current use of anticoagulant therapy 1 08/18/2005 [...] as of this encounter (statuses as of 03/17/2023) Immunizations Name Administration Dates Next Due COVID-19 [...] [facility] Lashay Blevins PA-C [address] [place] [address] Beverly Lozoya, [facility] [address] [place] [address] 04/09/2023 Office Visit Urology Alfredo Panda MD [address] [id number] 04/23/2023 Office Visit Infectious Disease Kendall Bell, DO [address] [place] [address] 04/28/2023 Office Visit Family Medicine Brian Domínguez MD [address] [place] [address] 05/05/2023 Office Visit Cardiology Sobia Brewster PA-C [address] [place] [address] 05/09/2023 Office Visit Gastroenterology Wendy Frias, DO [address] [place] [address] Scheduled Procedures Name Priority Associated Diagnoses Date/Ti [...] Additional history exists CKD PHOS USE SMARTSET 55259 10/24/202310/05, 02/18/2022, 02/17/2022, Additional history exists TSH 02/14/2024 02/13/2023, 10/05, 02/28/2022, Additional history exists CKD HGB USE SMARTSET 45522 02/19/202402/18, 02/11/2023, 02/07/2023, Additional history exists Colonoscopy [...] this encounter Medical Devices Implanted Type Area Tricot Knitter Device Identifier Shelf Expiration Date Model / Serial / Lot Sut Bob 6 [id number] - [id number] Implanted:Qty: 1 on 02/15/2011 at [place] [facility] [place] N/A: Chest DO NOT USE 07/21/2015 [id number] / / [id number] documented as of this encounter Procedures Procedure Name Priority Date/Time Associated Diagnosis Comments OUTSIDE LAB RESULTS 03/14/2023 documented in this encounter Results * OUTSIDE LAB RESULTS (03/14/2023) 03/14/2023 Brian Domínguez MD LABORATORY documented in this encounter Advance Directives Documents on File Type Date Recorded 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 No Code Status History Code Status Date [...] patient have Health Care Power of Supervisor Paint Roller Covers? No Full Code 02/01/2010 4:02 PM 02/02/2010 4:09 PM This order reflects the patients wishes and were consensually agreed upon. Question Answer Comments Discussion of Advance Directives occurred with: Not Discussed Does the patient have a Living Will? No Does the patient have Health Care Power of Supervisor Paint Roller Covers? No Healthcare Agents on File Name Relationship Healthcare Agent [facility] Communication Carolyn Ballard Adult Child Health Care Agent Care Teams Client Manager Large Law Relationship Specialty Start Date End Date Brian Domínguez MD [address] [place] [address] PCP - General Family Medicine 07/16/17 documented as of this encounter
--- OUTSIDE RECORDS SUMMARY | 2023-05-17 12:11 | External Medical Summary | Summary of Care ---
Author Name Unknown Organization [facility] Address [address] [place] [address] Phone [phone] Care Team Providers Care Cost Estimating Clerk Name Role Phone Brian Domínguez MD Primary Care Provider +1- [phone] Encounter Details Date Type Department Care Team Description 03/14/2023 Result Scan Unspecified Department <No scans attached> Allergies Active Allergy Reactions [...] Active venlafaxine XR (EFFEXOR XR) 150 MG [id number]:Dep ression Take 1 Cap by mouth daily. [...] 0 8 Active Blood Glucose Monitoring Suppl (Microstaq) w/Device KIT Use as directed. Use as directed. 1 Kit 0 9 Active Spacer/Aero-Holding Chambers WISAM Use with inhaler. Wheezing/bronchitis . 1 Device 0 9 Active Impact DelJumblets Lancets 33G MISC USE UP TO FOUR TIMES A DAY Dx:E11.4 100 Each 5 0 Active Lancet Devices (NuOrtho SurgicalTOUCH DELICA LANCING DEV) MISC Use four times [...] Respimat 2.5 MCG/ACT Inhalation Aerosol Solution (Tiotropium [place] Monohydrate) Inhale by mouth 2 Puffs in [...] 2 Active Vitamin D (Ergocalciferol) 1.25 MG (55256 UT) Oral Capsule (Drisdol)Indication s:Vitamin D deficiency [...] 90 Tablet 1 3 Active UltiCare Pen [place] 31G X 5 MM (Insulin Pen Needle) use TWICE DAILY 200 Each 3 3 Active Torsemide 20 MG Oral Tablet (Demadex)Indication s:Atherosclerotic heart disease of [place] coronary artery with other forms of angina [...] bedtime 180 Tablet 3 3 Active Nystatin 810916 UNIT/GM External Powder (Nystop)Indications :Candidal intertrigo Apply [...] daily 300 Strip 3 3 Active Nystatin 948702 UNIT/ML Mouth/Throat Suspension SWISH AND SWALLOW 5ML [...] mg daily Atherosclerotic heart diseas e of [place] coronary artery with other forms of angina pectoris 11/15/2021 Last Assessment & Plan: Stable. No angina -continue toprol, ASA and statin Seasonal allergies 11/15/2021 Recurrent UTI 10/07/2021 Last Assessment & Plan: Followed by urology Pt is supposed to be on methenamine--will need to clarify with dgt that she is giving this. 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 Anxiety 08/05/2017 Hejaqfq-Yldbl-Ygscv disease 06/27/2015 Last Assessment & Plan: Frequent [...] 05/06/2018 019 Atherosclerotic heart diseas e of [place] coronary artery with other forms of angina [...] 10/31/201008/08 Acute coronary syndrome 10/30/2010 01/22/20 14 [facility] Research Other*[id number] 02/02/2010 04/18/2014 Overview: [place] [facility], Dr Joel Kwon PI Obesity, morbid [...] [facility] Lashay Blevins PA-C [address] [place] [address] Beverly Lozoya, [facility] [address] [place] [id number] 04/09/2023 Office Visit Urology Alfredo Panda MD [address] [place] [address] 04/23/2023 Office Visit Infectious Disease Kendall Bell, DO [address] [place], [place] [phone] 04/28/2023 Office Visit Family Medicine Brian Domínguez MD [address] [place] [address] 05/05/2023 Office Visit Cardiology Sobia Brewster PAArleen [address] [place] [address] 05/09/2023 Office Visit Gastroenterology Wendy Frias, DO [address] [place] [address] Scheduled Procedures Name Priority Associated Diagnoses Date/Ti [...] Additional history exists CKD PHOS USE SMARTSET 99832 10/24/202310/05, 02/18/2022, 02/17/2022, Additional history exists TSH 02/14/2024 02/13/2023, 10/05, 02/28/2022, Additional history exists CKD HGB USE SMARTSET 87705 02/19/202402/18, 02/11/2023, 02/07/2023, Additional history exists Colonoscopy [...] this encounter Medical Devices Implanted Type Area Java Programmer Analyst Device Identifier Shelf Expiration Date Model / Serial / Lot Sut Steel 6 [id number] - [id number] Implanted:Qty: 1 on 02/15/2011 at [place] [facility] [place] N/A: Chest DO NOT USE 07/21/2015 [id number] / / [id number] documented as of this encounter Procedures Procedure Name Priority Date/Time Associated Diagnosis Comments OUTSIDE LAB RESULTS 03/14/2023 documented in this encounter Results * OUTSIDE LAB RESULTS (03/14/2023) 03/14/2023 No Physician Data Unknown LABORATORY documented in this encounter Advance Directives Documents on File Type Date Recorded Patient Cnc Machine Setter Expl anation POL 05/06/2018 POL Latest Code Status on File Code Status Date Activated Date Inactivated Comments Full Code 06/25/2011 3:09 AM 06/26/2011 9:47 PM Thi s order reflects the patients wishes and were consensually agreed upon. Question Answer Comments Discussion of Advance Directives occurred with: Patient Does the patient have a Living Will? No Does the patient have Health Care Power of Lithograph Press Feeder? No Code Status History Code Status Date [...] the patient have Health Care Power of Lithograph Press Feeder? No Full Code 02/01/2010 4:02 PM 02/02/2010 4:09 PM This order reflects the patients wishes and were consensually agreed upon. Question Answer Comments Discussion of Advance Directives occurred with: Not Discussed Does the patient have a Living Will? No Does the patient have Health Care Power of Lithograph Press Feeder? No Healthcare Agents on File Name Relationship Healthcare Agent [facility] Communication Carolyn Ballard Adult Child Health Care Agent Care Teams Cost Estimating Clerk Relationship Specialty Start Date End Date Brian Domínguez MD [address] [place] [address] PCP - General Family Medicine 07/16/17 documented as of this encounter
--- OUTSIDE RECORDS SUMMARY | 2023-05-17 12:11 | External Medical Summary | Summary of Care ---
Author Name Unknown Organization [facility] Address [address] [place] [address] Phone [phone] Care Team Providers Care Schedule Supervisor Name Role Phone Brian Domínguez MD Primary Care Provider [phone]- [phone] Reason for Visit * Reason Onset Date Comments Appointment 03/05/2023 Encounter Details Date Type Department Care Team Description 03/05/2023 Telephone [facility] [place] [address] [place], [place] [id number] Services, Scheduling [address] [place] [address] Appointment (//) Allergies Active Allergy Reactions Severity Noted Date Comments Propoxyphene Hcl Rash Low 10/29/2010 Fentanyl Diarrhea Low 04/26/2010 anxiety Methocarbamol Medium 10/05/2020 Other reaction(s): Delirium Methocarbamol Low 04/15/2007 Zolpidem Low 10/05/2020 Other reaction(s): Confusion documented as of this encounter (statuses as of 03/05/2023) Medications Medication Sig Dispensed Refills Start Date End Date Status ARIPiprazole (ABILIFY) 2 MG Tablet Take 1 Tablet by mouth in the morning. 0 6 Active venlafaxine XR (EFFEXOR XR) 150 MG [id number]:Dep ression Take 1 Cap by mouth daily. [...] 0 8 Active Blood Glucose Monitoring Suppl ([employer]TOUCH VERIO) w/Device KIT Use as directed. Use [...] Respimat 2.5 MCG/ACT Inhalation Aerosol Solution (Tiotropium [place] Monohydrate) Inhale by mouth 2 Puffs in [...] 2 Active Vitamin D (Ergocalciferol) 1.25 MG (16555 UT) Oral Capsule (Drisdol)Indication s:Vitamin D deficiency [...] 90 Tablet 1 3 Active UltiCare Pen [place] 31G X 5 MM (Insulin Pen Needle) use TWICE DAILY 200 Each 3 3 Active Torsemide 20 MG Oral Tablet (Demadex)Indication s:Atherosclerotic heart disease of [place] coronary artery with other forms of [...] bedtime 180 Tablet 3 3 Active Nystatin 793751 UNIT/GM External Powder (Nystop)Indications :Candidal intertrigo Apply [...] daily 300 Strip 3 3 Active Nystatin 264962 UNIT/ML Mouth/Throat Suspension SWISH AND SWALLOW 5ML [...] 14 Suppository 0 3 03/18/20 23 Active documented as of this encounter (statuses as of 03/05/2023) Active Problems Problem Noted Date Medical home patient encounter 3 Hypertensive heart and kidne y disease with chronic diastolic congestive heart failure and stage 3a chronic kidney disease 12/28/2021 Last Assessment & Plan: Euvolemic, BP stable EF 55% 09/25 GFR 69 02/25 -Continue Torsemide 20 mg BID, Spironolactone 25 mg BID, Tropol XL 50 mg daily Atherosclerotic heart diseas e of [place] coronary artery with other forms of angina pectoris 11/15/2021 Last Assessment & Plan: Stable. No angina -continue toprol, ASA and statin Seasonal allergies 11/15/2021 Recurrent UTI 10/07/2021 Last Assessment & Plan: Followed by urology Pt is supposed to be on methenamine--will need to clarify with dgt that she is giving this. 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/2014 intermediate designer current use of anticoagulant therapy 1 08/18/2005 [...] of inactive term HTN, goal below 140/90 05/04/200408/02/ 0 Overview: Per HTN Taxonomy. Carpal tunnel syndrome 12/31/2002 6 documented as of this encounter (statuses as of 03/05/2023) Immunizations Name Administration Dates Next Due COVID-19 [...] * Telephone Encounter - DENG Cruz - 03/05/2023 9:36 AM EDT Per request, lmom for daughter eliot letting her know loreto oneill will call her later today and that her mother's script was sent later yesterday documented in this encounter Plan of Treatment Upcoming Encounters Date Type Specialty Care Team Description 04/03/2023 Telemedicine [facility] Lashay Blevins PA-C [address] [place], [place] [phone] Beverly Lozoya, [facility] Insecticide Mixer [address] [place] [address] [place] [id number] 04/09/2023 Office Visit Urology Alfredo Panda MD [address] [place] [address] 04/23/2023 Office Visit Infectious Disease Kendall Bell, DO [address] [place] [address] 04/28/2023 Office Visit Family Medicine Brian Domínguez MD [address] [place], [place] [phone] 05/05/2023 Office Visit Cardiology Sobia Brewster PA-C [address] [place] [address] 05/09/2023 Office Visit Gastroenterology Wendy Frias DO [address] [place] [address] Scheduled Procedures Name Priority Associated Diagnoses Date/Ti [...] visit until score < 10) 05/23/2020 05/22/2020 DIABETES-FOOT EXAM 05/22/2021 05/22/2020, 0 02/22/2019, 11/04/2017, Additional history [...] Additional history exists CKD PHOS USE SMARTSET 11506 10/24/202310/05, 02/18/2022, 02/17/2022, Additional history exists TSH 02/14/2024 02/13/2023, 10/05, 02/28/2022, Additional history exists CKD HGB USE SMARTSET 32651 02/19/202402/18, 02/11/2023, 02/07/2023, Additional history exists Colonoscopy [...] this encounter Medical Devices Implanted Type Area Operating Manager Device Identifier Shelf Expiration Date Model / Serial / Lot Sut Steel 6 [id number] - [id number] [place]ed:Q[place] 1 [place] [facility] [place] Chest DO NOT USE 07/21/2015 [id number] / / [id number] documented as of this encounter Advance Directives Documents on File Type Date Recorded 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 Question Answer Comments Discussion of Advance Directives occurred with: Patient Does the patient have a Living Will? No Does the patient have Health Care Power of Window Shade Ring Coverer? No Code Status History Code Status Date [...] the patient have Health Care Power of Window Shade Ring Coverer? No Full Code 02/01/2010 4:02 PM 02/02/2010 4:09 PM This order reflects the patients wishes and were consensually agreed upon. Question Answer Comments Discussion of Advance Directives occurred with: Not Discussed Does the patient have a Living Will? No Does the patient have Health Care Power of Window Shade Ring Coverer? No Healthcare Agents on File Name Relationship Healthcare Agent [facility] Communication lEiot Ballard Adult Child Health Care Agent Care Teams Schedule Supervisor Relationship Specialty Start Date End Date Brian Domínguez MD [address] [place] [address] PCP - General Family Medicine 07/16/17 documented as of this encounter
--- OUTSIDE RECORDS SUMMARY | 2023-05-17 12:12 | External Medical Summary | Summary of Care ---
Author Name Unknown Organization [facility] Address [address] [place] [address] Phone [phone] Care Team Providers Care Electrical Wirer Name Role Phone Brian Domínguez MD Primary Care Provider [phone]- [phone] Reason for Visit * Reason Onset Date Comments Advice 02/26/2023 Encounter Details Date Type Department Care Team Description 02/26/2023 Telephone [facility] [place] [address] [place] [address] Lashay Blevins PA-C [address] [place] [address] Advice Allergies Active Allergy Reactions Severity Noted Date Comments Propoxyphene Hcl Rash Low 10/29/2010 Fentanyl Diarrhea Low 04/26/2010 anxiety Methocarbamol Medium 10/05/2020 Other reaction(s): Delirium Methocarbamol Low 04/15/2007 Zolpidem Low 10/05/2020 Other reaction(s): Confusion documented as of this encounter (statuses as of 02/26/2023) Medications Medication Sig Dispensed Refills Start Date End Date Status ARIPiprazole (ABILIFY) 2 MG Tablet Take 1 Tablet by mouth in the morning. 0 2015 Active venlafaxine XR (EFFEXOR XR) 150 MG [id number]:Dep ression Take 1 Cap by mouth daily. With food. 30 Cap 5 09/02/2016 Active Additional Information Patient taking differently: 225 mgOral Daily(AM), With food.,Indications: Takes 225 mg total every morning with food (150 mg tab + 75 mg tab), Reported on 06/24/2022 Blood Glucose Monitoring Suppl ([employer] Solar Concentrator-Pegg'd GLUCOMETER) w/Device KITIndications:Unco ntrolled type 2 diabetes mellitus without complication, without long-term current use of insulin Use as directed. Use as directed once daily 1 Kit 0 11/18/2017 Active Blood Glucose Monitoring Suppl ([employer]) w/Device KIT Use as directed. Use as directed. 1 Kit 0 10/31/2018 Active Spacer/Aero-Holding Chambers WISAM Use with inhaler. Wheezing/bronchitis . 1 Device 0 04/08/2019 Active Sumerian DelSymptom.ly Lancets 33G MISC USE UP TO FOUR TIMES A DAY Dx:E11.4 100 Each 5 09/30/2019 Active Lancet Devices (EZMoveUCH DELICA LANCING DEV) MISC Use four times [...] DAILY DIRECTED 2700 mL 5 10/04/2021 Active Budesonide-Formoter ol Fumarate 160-4.5 MCG/ACT Inhalation Aerosol (Symbicort) Inhale by mouth 2 Puffs in the morning AND 2 Puffs before bedtime. 10.2 g 12 02/18/2022 Active lamoTRIgine 100 MG Oral Tablet (LaMICtal) Take 1 Tablet by mouth every morning. 30 Tablet 5 03/12/2022 Active Insulin Glargine Solostar 100 UNIT/ML Subcutaneous Solution Pen-injector (Basaglar KwikPen)Indications :Type 2 diabetes mellitus with diabetic neuropathy, with long-term current use of insulin (HCC) Inject 30 units under the skin twice daily 45 mL 3 04/16/2022 Active Insulin Glargine Solostar 100 UNIT/ML Subcutaneous Solution Pen-injector (Basaglar KwikPen)Indications :Type 2 diabetes mellitus with diabetic neuropathy, with long-term current use of insulin (HCC) Inject 30 units under the skin twice daily 45 mL 3 04/17/2022 Active Metoprolol Succinate ER 25 MG Oral Tablet Extended Release 24 Hour (toPROL XL) Take by mouth 1 Tablet in the morning. 90 Tablet 3 04/19/2022 Active Atorvastatin Calcium 40 MG Oral Tablet (Lipitor)Indication s:Dyslipidemia, goal LDL below 70 Take by mouth 1 Tablet in the morning. 90 Tablet 3 04/25/2022 Active Spiriva Respimat 2.5 MCG/ACT Inhalation Aerosol Solution (Tiotropium [place] Monohydrate) Inhale by mouth 2 Puffs in the morning. 4 g 3 04/25/2022 Active Estradiol 0.1 MG/GM Vaginal Cream Administer into the vagina 1 g in the morning. 42.5 g 12 05/07/2022 Active Diclofenac Sodium 1 % External Gel (Voltaren) Apply topically to affected area 2 times a day. 150 g 3 06/05/2022 Active Vitamin D (Ergocalciferol) 1.25 MG (21742 UT) Oral Capsule (Drisdol)Indication s:Vitamin D deficiency [...] per week 6 mL 3 08/20/2022 Active Tamsulosin HCl 0.4 MG Oral Capsule (Flomax) Take 1 Capsule by mouth in the morning. Every morning.. 90 Capsule 3 09/18/2022 Active lamoTRIgine 25 MG Oral Tablet (LaMICtal) Take 1 tablet by mouth in the morning for a total of 125mg, then 2 tablets by mouth in the evening every day 0 09/08/2022 Active metFORMIN HCl ER 500 MG Oral Tablet Extended Release 24 Hour (Glucophage XR) Take 1 Tablet by mouth daily with dinner. 30 Tablet 5 09/26/2022 Active Famotidine 40 MG Oral Tablet (Pepcid)Indications [...] 90 Tablet 1 12/19/2022 Active UltiCare Pen [place] 31G X 5 MM (Insulin Pen Needle) use TWICE DAILY 200 Each 3 12/23/2022 Active Torsemide 20 MG Oral Tablet (Demadex)Indication s:Atherosclerotic heart disease of [place] coronary artery with other forms of angina [...] bedtime 180 Tablet 3 01/16/2023 Active Nystatin 614263 UNIT/GM External Powder (Nystop)Indications :Candidal intertrigo Apply topically to affected area 3 times a day. Apply to right breast until rash resolved. 30 g 0 01/15/2023 Active Sucralfate 1 GM Oral Tablet (Carafate)Indicatio ns:Gastroesophageal reflux disease with esophagitis without hemorrhage TAKE 1 TABLET BY MOUTH EVERY MORNING 90 Tablet 0 01/17/2023 Active Additional Information Patient not taking.Reported on 02/24/2023 Progressive Dealer Tools In Vitro Strip (Glucose Blood)Indications:T ype 2 diabetes mellitus with diabetic neuropathy, with long-term current use of insulin (HCC) use to test blood sugar 3 times daily 300 Strip 3 01/16/2023 Active Nystatin 305722 UNIT/ML Mouth/Throat Suspension SWISH AND SWALLOW 5ML [...] TIMES DAILY 90 Tablet 0 01/27/2023 Active Vitamin C 500 MG Oral Tablet [...] EVERY MORNING 90 Tablet 0 02/13/2023 Active Fluconazole 150 MG Oral Tablet (Diflucan) Take 1 Tablet by mouth once for 1 dose. 1 Tablet 0 02/26/2023 02/27/20 23 Active documented as of this encounter (statuses as of 02/26/2023) Active Problems Problem Noted Date Medical home patient encounter 3 Hypertensive heart and kidne y disease with chronic diastolic congestive heart failure and stage 3a chronic kidney disease 12/28/2021 Last Assessment & Plan: Euvolemic, BP stable EF 55% 09/25 GFR 69 02/25 -Continue Torsemide 20 mg BID, Spironolactone 25 mg BID, Tropol XL 50 mg daily Atherosclerotic heart diseas e of [place] coronary artery with other forms of angina pectoris 11/15/2021 Last Assessment & Plan: Stable. No angina -continue toprol, ASA and statin Seasonal allergies 11/15/2021 Recurrent UTI 10/07/2021 Last Assessment & Plan: Followed by urology Pt is supposed to be on methenamine--will need to clarify with dgt that she is giving this. 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/2014 prison current use of anticoagulant therapy 1 08/18/2005 [...] as of this encounter (statuses as of 02/26/2023) Immunizations Name Administration Dates Next Due COVID-19 [...] Telephone Encounter - Lashay Johnston PA-C - 02/26/2023 12:24 PM EDT Received a call from the patients daughter that is back at home. She was discharged home with a mejia catheter in place. Ang reports a bad smell coming from the vaginal region. She has some creamy white d/c and appears inflamed. No itching but burning present. No changes noted in urine or urine output. will collect a BV sample. I will sent a diflucan to cover yeast infection. Advised to reach out with change in S/S documented in this encounter Plan of Treatment Upcoming Encounters Date Type Specialty Care Team Description 03/03/2023 Telemedicine [facility] Lashay Blevins PA-C [address] [place] [address] Beverly Lozoya, [address] [place] [address] 04/09/2023 Office Visit Urology Alfredo Panda MD [address] [place], [place] [phone] 04/23/2023 Office Visit Infectious Disease Kendall Bell, DO [address] [place] [address] 04/28/2023 Office Visit Family Medicine Brian Domínguez MD [address] [place] [address] 05/05/2023 Office Visit Cardiology Sobia Brewster PA-C [address] [place] [address] 05/09/2023 Office Visit Gastroenterology Wendy Frias DO [address] [place] [address] Scheduled Orders Name Type Priority Associated Diagnoses Orde r Schedule VAGINOSIS PANEL, PCR Lab STAT Vaginal discharge Expected: 02/27/2023, Expires: 02/27/2024 Scheduled Procedures Name Priority Associated Diagnoses Date/Ti [...] Additional history exists CKD PHOS USE SMARTSET 93329 10/24/202310/05, 02/18/2022, 02/17/2022, Additional history exists TSH 02/14/2024 02/13/2023, 10/05, 02/28/2022, Additional history exists CKD HGB USE SMARTSET 21674 02/19/202402/18, 02/11/2023, 02/07/2023, Additional history exists Colonoscopy [...] this encounter Medical Devices Implanted Type Area Receiving Checker Device Identifier Shelf Expiration Date Model / Serial / Lot Sut Bob 6 M654g - [id number] Implanted:Qty: 1 on 02/15/2011 at [place] [facility] [place] N/A: Chest DO NOT USE 07/21/2015 [id number] / / [id number] documented as of this encounter Visit Diagnoses Diagnosis Vaginal discharge- Primary Leukorrhea, not specified as infective documented in this encounter Advance Directives Documents on File Type Date Recorded 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 Question Answer Comments Discussion of Advance Directives occurred with: Patient Does the patient have a Living Will? No Does the patient have Health Care Power of Management Recruiter? No Code Status History Code Status Date [...] the patient have Health Care Power of Management Recruiter? No Full Code 02/01/2010 4:02 PM 02/02/2010 4:09 PM This order reflects the patients wishes and were consensually agreed upon. Question Answer Comments Discussion of Advance Directives occurred with: Not Discussed Does the patient have a Living Will? No Does the patient have Health Care Power of Management Recruiter? No Healthcare Agents on File Name Relationship Healthcare Agent [facility] Communication Carolyn Ballard Adult Child Health Care Agent Care Teams Electrical Wirer Relationship Specialty Start Date End Date Brian Domínguez MD [address] [place] [address] PCP - General Family Medicine 07/16/17 documented as of this encounter
--- OUTSIDE RECORDS SUMMARY | 2023-05-17 12:12 | External Medical Summary | Summary of Care ---
Author Name Unknown Organization [facility] Address [address] [place] [address] Phone [phone] Care Team Providers Care Assistant Executive Housekeeper Name Role Phone Brian Domínguez MD Primary Care Provider [phone]- [phone] Reason for Visit * Reason Comments Outpatient Testing Encounter Details Date Type Department Care Team Description 03/03/2023 Laboratory Laboratory, [place] [address] [place] [address] [place] [address] [place] [address] Vaginal discharge Allergies Active Allergy Reactions Severity Noted Date Comments Propoxyphene Hcl Rash Low 10/29/2010 Fentanyl Diarrhea Low 04/26/2010 anxiety Methocarbamol Medium 10/05/2020 Other reaction(s): Delirium Methocarbamol Low 04/15/2007 Zolpidem Low 10/05/2020 Other reaction(s): Confusion documented as of this encounter (statuses as of 03/03/2023) Medications Medication Sig Dispensed Refills Start Date End Date Status ARIPiprazole (ABILIFY) 2 MG Tablet Take 1 Tablet by mouth in the morning. 0 2015 Active venlafaxine XR (EFFEXOR XR) 150 MG [id number]:Dep ression Take 1 Cap by mouth daily. With food. 30 Cap 5 09/02/2016 Active Additional Information Patient taking differently: 225 mgOral Daily(AM), With food.,Indications: Takes 225 mg total every morning with food (150 mg tab + 75 mg tab), Reported on 06/24/2022 Blood Glucose Monitoring Suppl (D-Famo.us GLUCOMETER) w/Device KITIndications:Unco ntrolled type 2 diabetes mellitus without complication, without long-term current use of insulin Use as directed. Use as directed once daily 1 Kit 0 11/18/2017 Active Blood Glucose Monitoring Suppl (GridIron SoftwareIO) w/Device KIT Use as directed. Use as directed. 1 Kit 0 10/31/2018 Active Spacer/Aero-Holding Chambers WISAM Use with inhaler. Wheezing/bronchitis . 1 Device 0 04/08/2019 Active QuanDxuch Delica Lancets 33G MISC USE UP TO [...] Respimat 2.5 MCG/ACT Inhalation Aerosol Solution (Tiotropium [place] Monohydrate) Inhale by mouth 2 Puffs in the morning. 4 g 3 04/25/2022 Active Estradiol 0.1 MG/GM Vaginal Cream Administer into the vagina 1 g in the morning. 42.5 g 12 05/07/2022 Active Diclofenac Sodium 1 % External Gel (Voltaren) Apply topically to affected area 2 times a day. 150 g 3 06/05/2022 Active Vitamin D (Ergocalciferol) 1.25 MG (14905 UT) Oral Capsule (Drisdol)Indication s:Vitamin D deficiency [...] 90 Tablet 1 12/19/2022 Active UltiCare Pen [place] 31G X 5 MM (Insulin Pen Needle) use TWICE DAILY 200 Each 3 12/23/2022 Active Torsemide 20 MG Oral Tablet (Demadex)Indication s:Atherosclerotic heart disease of [place] coronary artery with other forms of angina [...] bedtime 180 Tablet 3 01/16/2023 Active Nystatin 659699 UNIT/GM External Powder (Nystop)Indications :Candidal intertrigo Apply topically to affected area 3 times a day. Apply to right breast until rash resolved. 30 g 0 01/15/2023 Active Sucralfate 1 GM Oral Tablet (Carafate)Indicatio ns:Gastroesophageal reflux disease with esophagitis without hemorrhage TAKE 1 TABLET BY MOUTH EVERY MORNING 90 Tablet 0 01/17/2023 Active Additional Information Patient not taking.Reported on 02/24/2023 dateIITiansamador In Vitro Strip (Glucose Blood)Indications:T ype 2 diabetes mellitus with diabetic neuropathy, with long-term current use of insulin (HCC) use to test blood sugar 3 times daily 300 Strip 3 01/16/2023 Active Nystatin 082375 UNIT/ML Mouth/Throat Suspension SWISH AND SWALLOW 5ML [...] EVERY MORNING 90 Tablet 0 02/13/2023 Active documented as of this encounter (statuses as of 03/03/2023) Active Problems Problem Noted Date Medical home patient encounter 3 Hypertensive heart and kidne y disease with chronic diastolic congestive heart failure and stage 3a chronic kidney disease 12/28/2021 Last Assessment & Plan: Euvolemic, BP stable EF 55% 09/25 GFR 69 02/25 -Continue Torsemide 20 mg BID, Spironolactone 25 mg BID, Tropol XL 50 mg daily Atherosclerotic heart diseas e of [place] coronary artery with other forms of angina pectoris 11/15/2021 Last Assessment & Plan: Stable. No angina -continue toprol, ASA and statin Seasonal allergies 11/15/2021 Recurrent UTI 10/07/2021 Last Assessment & Plan: Followed by urology Pt is supposed to be on methenamine--will need to clarify with dgt that she is giving this. 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 oPrtillo 04/10. ELECTROLYT-FLUID DIS NEC 05/25/2004 014 PREMENSTRUAL TENSION 05/04/2004 11/05/2005 Type 2 diabetes mellitus wit h hemoglobin A1c goal of less than 7.0% 05/04/2004 05/04/2009 Overview: Per Diabetes Taxonomy. diet controlled, 03/07/05 hgba1c 5.4 ICD-10 update of inactive term HTN, goal below 140/90 05/04/2004 0 Overview: Per HTN Taxonomy. Carpal tunnel syndrome 12/31/2002 6 documented as of this encounter (statuses as of 03/03/2023) Immunizations Name Administration Dates Next Due COVID-19 [...] [facility] Lashay Blevins PA-C [address] [place] [address] Beverly Lozoya, [facility] Linux Kernel Developer [address] [place] [address] [place] [address] 04/09/2023 Office Visit Urology Alfredo Panda MD [address] [place], [place] [id number] 04/23/2023 Office Visit Infectious Disease Kendall Bell, DO [address] [place] [address] 04/28/2023 Office Visit Family Medicine Brian Domínguez MD [address] [place] [address] 05/05/2023 Office Visit Cardiology Sobia Brewster PA-C [address] [place] [address] 05/09/2023 Office Visit Gastroenterology Wendy Frias, DO [address] [place] [address] Pending Results Name Type Priority Associated Diagnoses Date /Time VAGINOSIS PANEL, PCR Lab STAT Vaginal discharge 03/03/2023 10:46 AM EDT Scheduled Procedures Name Priority Associated Diagnoses [...] Additional history exists CKD PHOS USE SMARTSET 96366 10/24/202310/05, 02/18/2022, 02/17/2022, Additional history exists TSH 02/14/2024 02/13/2023, 10/05, 02/28/2022, Additional history exists CKD HGB USE SMARTSET 30210 02/19/202402/18, 02/11/2023, 02/07/2023, Additional history exists Colonoscopy [...] this encounter Medical Devices Implanted Type Area Revenue Accountant Device Identifier Shelf Expiration Date Model / Serial / Lot Jenna Rojas 6 [id number] - [id number] Implanted:Qty: 1 on 02/15/2011 at OR [facility] [place] N/A: Chest DO NOT USE 07/21/2015 [id number] / / [id number] documented as of this encounter Visit Diagnoses Diagnosis Vaginal discharge Leukorrhea, not specified as infective documented in this encounter Advance Directives Documents on File Type Date Recorded Patient Dental Receptionist Jose GARZON 05/06/2018 POL Latest Code Status on File Code Status Date Activated Date Inactivated Comments Full Code 06/25/2011 3:09 AM 06/26/2011 9:47 PM Thi s order reflects the patients wishes and were consensually agreed upon. Question Answer Comments Discussion of Advance Directives occurred with: Patient Does the patient have a Living Will? No Does the patient have Health Care Power of Import Coordinator? No Code Status History Code Status [...] the patient have Health Care Power of Import Coordinator? No Full Code 02/01/2010 4:02 PM 02/02/2010 4:09 PM This order reflects the patients wishes and were consensually agreed upon. Question Answer Comments Discussion of Advance Directives occurred with: Not Discussed Does the patient have a Living Will? No Does the patient have Health Care Power of Import Coordinator? No Healthcare Agents on File Name Relationship Healthcare Agent [facility] Communication Carolyn Ballard Adult Child Health Care Agent Care Teams Assistant Executive Housekeeper Relationship Specialty Start Date End Date Brian Domínguez MD [address] [place] [address] PCP - General Family Medicine 07/16/17 documented as of this encounter
--- OUTSIDE RECORDS SUMMARY | 2023-05-17 12:12 | External Medical Summary | Summary of Care ---
Author Name Unknown Organization [facility] Address [address] [place] [address] Phone [phone] Care Team Providers Care Hand Dry Cleaner Name Role Phone Brian Domínguez MD Primary Care Provider [phone]- [phone] Reason for Visit * Reason Onset Date Comments Test Results 03/04/2023 Encounter Details Date Type Department Care Team Description 03/04/2023 Telephone [facility] [place] [address] [place] [address] Lashay Blevins PA-C [address] [place] [address] Test Results Allergies Active Allergy Reactions Severity Noted Date Comments Propoxyphene Hcl Rash Low 10/29/2010 Fentanyl Diarrhea Low 04/26/2010 anxiety Methocarbamol Medium 10/05/2020 Other reaction(s): Delirium Methocarbamol Low 04/15/2007 Zolpidem Low 10/05/2020 Other reaction(s): Confusion documented as of this encounter (statuses as of 03/04/2023) Medications Medication Sig Dispensed Refills Start Date End Date Status ARIPiprazole (ABILIFY) 2 MG Tablet Take 1 Tablet by mouth in the morning. 0 6 Active venlafaxine XR (EFFEXOR XR) 150 MG [id number]:Dep ression Take 1 Cap by mouth daily. With food. 30 Cap 5 7 Active Additional Information Patient taking differently: 225 mgOral Daily(AM),Taking a total of 225 mg, Indications: Takes 225 mg total every morning with food (150 mg tab + 75 mg tab), Reported on 03/03/2023 Blood Glucose Monitoring Suppl (D-[employer] Loop Media GLUCOMETER) w/Device KITIndications:Unco ntrolled type 2 diabetes mellitus without complication, without long-term current use of insulin Use as directed. Use as directed once daily 1 Kit 0 8 Active Blood Glucose Monitoring Suppl (American Kidney Stone ManagementIO) w/Device KIT Use as directed. Use as directed. 1 Kit 0 9 Active Spacer/Aero-Holding Chambers WISAM Use with inhaler. Wheezing/bronchitis . 1 Device 0 9 Active C2 TherapeuticsTouch Delica Lancets 33G MISC USE UP TO FOUR TIMES A DAY Dx:E11.4 100 Each 5 0 Active Lancet Devices (Hybrid LogicTOUCH DELICA LANCING DEV) MISC Use four times [...] Respimat 2.5 MCG/ACT Inhalation Aerosol Solution (Tiotropium [place] Monohydrate) Inhale by mouth 2 Puffs in [...] 2 Active Vitamin D (Ergocalciferol) 1.25 MG (70600 UT) Oral Capsule (Drisdol)Indication s:Vitamin D deficiency [...] 90 Tablet 1 3 Active UltiCare Pen [place] 31G X 5 MM (Insulin Pen Needle) use TWICE DAILY 200 Each 3 3 Active Torsemide 20 MG Oral Tablet (Demadex)Indication s:Atherosclerotic heart disease of [place] coronary artery with other forms of angina [...] bedtime 180 Tablet 3 3 Active Nystatin 941499 UNIT/GM External Powder (Nystop)Indications :Candidal intertrigo Apply [...] daily 300 Strip 3 3 Active Nystatin 557762 UNIT/ML Mouth/Throat Suspension SWISH AND SWALLOW 5ML [...] as of this encounter (statuses as of 03/04/2023) Active Problems Problem Noted Date Medical home patient encounter 3 Hypertensive heart and kidne y disease with chronic diastolic congestive heart failure and stage 3a chronic kidney disease 12/28/2021 Last Assessment & Plan: Euvolemic, BP stable EF 55% 09/25 GFR 69 02/25 -Continue Torsemide 20 mg BID, Spironolactone 25 mg BID, Tropol XL 50 mg daily Atherosclerotic heart diseas e of [place] coronary artery with other forms of angina pectoris 11/15/2021 Last Assessment & Plan: Stable. No angina -continue toprol, ASA and statin Seasonal allergies 11/15/2021 Recurrent UTI 10/07/2021 Last Assessment & Plan: Followed by urology Pt is supposed to be on methenamine--will need to clarify with dgt that she is giving this. 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 Anxiety 08/05/2017 Confrdo-Dnzwl-Xzwnf disease 06/27/2015 Last Assessment & Plan: Frequent [...] as of this encounter (statuses as of 03/04/2023) Resolved Problems Problem Noted Date Resolved Date [...] 05/06/2018 09/07/2018 Other cirrhosis of liver 05/06/2018 02/22/2 019 Atherosclerotic heart diseas e of [place] coronary artery with other forms of angina [...] 10/31/201008/08 Acute coronary syndrome 10/30/2010 01/22/20 14 [place] Research Other*[id number] 02/02/2010 04/18/2014 Overview: [place] Registry, Dr Joel Kwon PI Obesity, morbid [...] as of this encounter (statuses as of 03/04/2023) Immunizations Name Administration Dates Next Due COVID-19 [...] Telephone Encounter - Lashay Johnston PA-C - 03/04/2023 3:01 PM EDT Patient grew Liyah Glabrata on recent vaginal swab. Will treat with boric acid suppositories. Shedid have improvement of symptoms with the Diflucan but still had discharge and burning. Rx sent will call daughter with results. documented in this encounter Plan of Treatment Upcoming Encounters Date Type Specialty Care Team Description 04/03/2023 [facility] Lashay Blevins PA-C [address] [place] [address] Beverly Lozoya, [facility] [address] [place] [address] 04/09/2023 Office Visit Urology Alfredo Panda MD [address] [facility] [place] [address] 04/23/2023 Office Visit Infectious Disease Kendall Bell, DO [address] [place] [address] 04/28/2023 Office Visit Family Medicine Brian Domínguez MD [address] [facility] [place] [address] 05/05/2023 Office Visit Cardiology Sobia Brewster PA-C [address] [place] [address] 05/09/2023 Office Visit Gastroenterology Wendy Frias DO [address] [place] [address] Scheduled Procedures Name Priority Associated Diagnoses Date/Ti [...] 08/02/2023, 02/07/2023, Additional history exists Albumin/Creatinine Ratio 10/24/20232 023, 07/17/2022, 10/05/2020, Additional history exists CKD PHOS USE SMARTSET 87478 10/24/202310/05, 02/18/2022, 02/17/2022, Additional history exists TSH 02/14/2024 02/13/2023, 10/05, 02/28/2022, Additional history exists CKD HGB USE SMARTSET 83970 02/19/202402/18, 02/11/2023, 02/07/2023, Additional history exists Colonoscopy [...] this encounter Medical Devices Implanted Type Area Retail Beauty Specialist Device Identifier Shelf Expiration Date Model / Serial / Lot Jenna Rojas 6 [id number] - [id number] Implanted:Qty: 1 on 02[place]15/2011 [place] [facility] [place]: Chest DO NOT USE 07/21/2015 [id number] / / [id number] documented as of this encounter Advance Directives Documents on File Type Date Recorded 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 Question Answer Comments Discussion of Advance Directives occurred with: Patient Does the patient have a Living Will? No Does the patient have Health Care Power of Men'S Locker Room Attendant? No Code Status History Code Status Date [...] the patient have Health Care Power of Men'S Locker Room Attendant? No Full Code 02/01/2010 4:02 PM 02/02/2010 4:09 PM This order reflects the patients wishes and were consensually agreed upon. Question Answer Comments Discussion of Advance Directives occurred with: Not Discussed Does the patient have a Living Will? No Does the patient have Health Care Power of Men'S Locker Room Attendant? No Healthcare Agents on File Name Relationship Healthcare Agent [facility] Communication Carolyn Ballard Adult Child Health Care Agent Care Teams Hand Dry Cleaner Relationship Specialty Start Date End Date Brian Domínguez MD [address] [place] [address] PCP - General Family Medicine 07/16/17 documented as of this encounter
--- OUTSIDE RECORDS SUMMARY | 2023-05-17 12:12 | External Medical Summary | Summary of Care ---
Author Name Unknown Organization [facility] Address [address] [place] [address] Phone [phone] Care Team Providers Care Cable Television Technician Name Role Phone Brian Domínguez MD Primary Care Provider [phone]- [phone] Reason for Visit * Reason Comments [facility]: Telehealth Encounter Details Date Type Department Care Team Description 03/03/2023 Telemedicine [facility], [place] [address] [place] [address] Lashay Blevins PA-C [address] [place] [address] Beverly Lozoya [address] [place] [address] 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)*; Recurrent UTI; S/P ORIF (open reduction internal fixation) fracture Allergies Active Allergy Reactions Severity Noted Date [...] Active venlafaxine XR (EFFEXOR XR) 150 MG [id number]:Dep ression Take 1 Cap by mouth daily. With food. 30 Cap 5 09/02/2016 Active Additional Information Patient taking differently: 225 mgOral Daily(AM),Taking a total of 225 mg, Indications: Takes 225 mg total every morning with food (150 mg tab + 75 mg tab), Reported on 03/03/2023 Blood Glucose Monitoring Suppl (Montage Talent-Swarmforce GLUCOMETER) w/Device KITIndications:Unco ntrolled type 2 diabetes mellitus without complication, without long-term current use of insulin Use as directed. Use as directed once daily 1 Kit 0 11/18/2017 Active Blood Glucose Monitoring Suppl (yetu VERIO) w/Device KIT Use as directed. Use [...] current use of insulin ([facility]) Inject 30 units under the skin twice daily 45 mL 3 04/16/2022 Active Additional Information Patient taking differently: 20 Units BID (0700,1900), (No instructions reported), Reported on 03/03/2023 Insulin Glargine Solostar 100 UNIT/ML Subcutaneous Solution Pen-injector (Basaglar KwikPen)Indications :Type 2 diabetes mellitus with diabetic neuropathy, with long-term current use of insulin ([facility]) Inject 30 units under the skin twice [...] Respimat 2.5 MCG/ACT Inhalation Aerosol Solution (Tiotropium [place] Monohydrate) Inhale by mouth 2 Puffs in [...] 06/05/2022 Active Vitamin D (Ergocalciferol) 1.25 MG (40738 UT) Oral Capsule (Drisdol)Indication s:Vitamin D deficiency [...] and 1 in morning 0 09/08/2022 Active metFORMIN HCl ER 500 MG Oral Tablet Extended Release 24 Hour (Glucophage XR) Take 1 Tablet by mouth daily with dinner. 30 Tablet 5 09/26/2022 Active Additional Information Patient taking differently:500 mg [...] DAILY NEEDED FOR ABDOMINAL PAIN 120 Capsule 12/08/2022 Active Ondansetron HCl 8 MG Oral Tablet (Zofran)Indications :Nausea TAKE 1 TABLET BY MOUTH EVERY 8 HOURS NEEDED FOR NAUSEA 60 Tablet 5 12/09/2022 Active Levothyroxine Sodium 88 MCG Oral Tablet (Levoxyl)Indication s:Hypothyroidism take one tablet by mouth daily at least 30 minutes before breakfast and other medications 90 Tablet 12/10/2022 Active Xifaxan 550 MG Oral Tablet (rifAXIMin)Indicati ons:GONZALEZ (nonalcoholic steatohepatitis),Ch ronic liver disease and cirrhosis (HCC),Hepatic encephalopathy (HCC) TAKE 1 TABLET BY MOUTH TWICE DAILY 60 Tablet 5 12/16/2022 Active Montelukast Sodium 10 MG Oral Tablet (Singulair)Indicati ons:Nasal sinus congestion,PND (post-nasal drip) TAKE 1 TABLET BY MOUTH ONCE DAILY 90 Tablet 12/19/2022 Active UltiCare Pen Kaleva 31G X 5 MM (Insulin Pen Needle) use TWICE DAILY 200 Each 3 12/23/2022 Active Torsemide 20 MG Oral Tablet (Demadex)Indication s:Atherosclerotic heart disease of [place] coronary artery with other forms of angina pectoris (HCC),Hypertensive heart disease with chronic diastolic congestive heart failure (HCC) TAKE 1 TABLET BY MOUTH EVERY MORNING. MAY TAKE 1 ADDITIONAL TABLET NEEDED FOR SWELLING. 90 Tablet 12/24/2022 Active Spironolactone 50 MG Oral Tablet (Aldactone)Indicati ons:GONZALEZ (nonalcoholic steatohepatitis),Po rtal hypertension (HCC),Chronic liver disease and cirrhosis (HCC),Portal hypertensive gastropathy (HCC) Take 1 tablet by mouth in the morning and before bedtime 180 Tablet 3 01/16/2023 Active Nystatin 989528 UNIT/GM External Powder (Nystop)Indications :Candidal intertrigo Apply [...] daily 300 Strip 3 01/16/2023 Active Nystatin 286600 UNIT/ML Mouth/Throat Suspension SWISH AND SWALLOW 5ML [...] differently: Taking 1/2 tablet, Reported on 03/03/2023 documented as of this encounter (statuses as of 03/03/2023) Active Problems Problem Noted Date Medical home patient encounter Hypertensive heart and kidne y disease with chronic diastolic congestive heart failure and stage 3a chronic kidney disease 12/28/2021 Last Assessment & Plan: Euvolemic, BP stable EF 55% 09/25 GFR 69 02/25 -Continue Torsemide 20 mg BID, Spironolactone 25 mg BID, Tropol XL 50 mg daily Atherosclerotic heart diseas e of [place] coronary artery with other forms of angina pectoris 11/15/2021 Last Assessment & Plan: Stable. No angina -continue toprol, ASA and statin Seasonal allergies 11/15/2021 Recurrent UTI 10/07/2021 Last Assessment & Plan: Followed by urology Pt is supposed to be on methenamine--will need to clarify with dgt that she is giving this. 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 Anxiety 08/05/2017 Orwkfgy-Nikvh-Nbful disease 06/27/2015 Last Assessment & Plan: Frequent [...] 05/06/2018 019 Atherosclerotic heart diseas e of [place] coronary artery with other forms of angina [...] 10/31/201008/08 Acute coronary syndrome 10/30/2010 01/22/20 14 [place] Research Other*[id number] 02/02/2010 04/18/2014 Overview: [place] [facility], Dr Joel Kwon PI Obesity, morbid [...] 06/17/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 1 08/18/2005 [...] Sign Reading Time Taken Comments Blood Pressure 110/58 03/03/2023 3:27 PM EDT Pulse 70 03/03/2023 3:27 PM EDT Temperature 36.4 C (97.5 F) 03/03/2023 3:27 PM ED T Respiratory Rate 18 03/03/2023 3:27 PM EDT Oxygen Saturation 94% 03/03/2023 3:27 PM EDT Inhaled Oxygen Concentration - - Weight - - Height - - Body Mass Index - - documented in this encounter Progress Notes * Beverly Lozoya [facility] - 03/03/2023 3:29 PM EDT [facility] Visit Date: 03/03/2023 Time: 3:29 PM Name: Angelina Ballard : 1950 Referral Source: Provider Source of Information: Patient Spoken language: Uzbek Patient can read in Uzbek: Yes. Advertising Sales Consultant needed: No. COVID-19 screening completed: Yes Vitals: Vital signs completed: Yes, vital signs within normal range. BP 110/58 (BP Site: Left Arm, BP Position: Supine, BP Cuff Size: Large) | Pulse 70 | Temp 36.4 C (97.5 F) | Resp 18 | SpO2 94% Condition Changes: Changes in health or social status since last visit: Recently returned home from [facility] following a fall with fracture of left femur The patient has new concerns since last visit: Yes, reporting cough Progress towards goals since last visit: continues living independently with assistance of family and caregivers. Medications: Medication review completed? Yes, gaps identified and escalated to nurse/provider: Does the patient have barriers to medication adherence? No. Patient reports difficulty paying for medications or might in the future: No. Telehealth: This is a telehealth visit: Yes. Type of telehealth visit: Return/Routine Visit conducted with: Physician/AP Symptoms Surveys and Evaluations: MAHC10 completed this visit: Yes. Score is 4 or more? Yes, notified Provider/Television Inspector Last flowsheet values for MAHC10: Age 65+: [...] at risk for fallin (03/03/2023 3:00 PM) Home Safety Does member identify any safety issues related to entering or exiting their home? No Does the patient need a wheelchair ramp to access the home? No Snow/ice removal assistance available? Yes Is there adequate lighting? Yes Are there railings on stairs? N/A Do sidewalks appear to be in good repair? Yes Does member identify any safety issues related to the interior of their home? No If durable medical equipment is used, halls and doorways easy to navigate? Yes Are there trip hazards in the home? Yes, dog Are there working smoke detectors/CO2 detectors? Yes Is a health condition present or an air quality concern that an air conditioner or other cooling device will help? No Do stairs in the home have railings? N/A Is there a medical alert or phone near patient? Yes Are walkways clear and well lit? Yes Does member identify any safety issues related to utilizing or accessing the bathroom in their home? No Does bathroom have grab bars needed? Yes The patient reports needing help getting on and off the toilet? Yes Does the patient report needing help bathing? Yes Patient has 24/7 care provided by family and agency caregivers. Currently using slide board for transfers. NWB to LLE. Amb with wheeled walker. Are there any other identified issues/needs? No. If yes specify: Plan: Plan for the patient RANDY follow up as needed. Follow Up: Patient encouraged to call the intake phone number for all urgent but not emergent issues. Scheduled to follow up with patient in as scheduled. [facility] 03/03/2023 3:29 PM * Lashay Johnston PA-C - 03/03/2023 3:00 PM EDT [facility] Provider Telemedicine Visit Date: 03/03/2023 Time: 2:46 PM Assessment/Plan: 1. 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) Stable 2. Recurrent UTI Patient has an indwelling mejia catheter in place that HH is managing 3. S/P ORIF (open reduction internal fixation) fracture Had follow up with orthopedic Non weight bearing for 6 weeks. Follow up plan: Will follow up in one month. Patient doing ok at home. She has HH services on board. She has a pressure wound on the left heel and is seeing wound care this week. She had mild LE edema noted. Mejia catheter was draining clear yellow urine. Will continue to monitor. Med reconcillation completed. CM reached out to notify baby aspirin is once daily. A total of 35 minutes was spent face to face via video-based telemedicine. Subjective Patient location: HOME. I was not in a hospital or clinic location. After connecting through televideo, patient was verified with two unique identifiers. Patient (or authorized legal player services representative) was then informed that this was a Telemedicine visit and being conducted confidentially over secure lines. Methods to assure confidentiality were taken. Patient acknowledged consent and understandingof privacy and security of the Telemedicine visit. The patient agreed to participate. Reason for Visit: Follow-Up Current Concerns: Angelina Ballard is a 72 year old female seen today for a [facility] Telemedicine Provider Visit. Date of last known acute care visit: 02/24/23 with PCP Reason for last known acute care visit: [...] wound to the left heel. She has HH services on board. Family reached out to me last week as she was having malodorous vaginal d/c. A BV swab was ordered and I sent a Rx for Diflucan. She was d/c home with a mejia catheter that HH is managing. Today's concerns are: Patient states she is doing ok since being home. She has minimal pain to the left leg. The left legusually hold fluid and it is mildly swollen today. She states she is set up to see wound care for her heel and HH has been keeping it bandaged. She is not bearing weight on the leg. No increased SOB or [place] noted. She is starting to cough more and bring up mucus like she had prior to the hospital visit. No fever/chills. No abdominal bloating. Appetite is good. No changes in bowel habits. Mejia catheter is draining clear yellow urine. She states she took the yeast medication I sent and her vaginal odor has subsided. She still has some discharge present. No vaginal itching or pain. BG has been go od running in the high 90's and low 100's. ROS: See HPI Objective Physical Exam: BP 110/58 (BP Site: Left Arm, BP Position: Supine, BP Cuff Size: Large) | Pulse 70 | Temp 36.4 C (97.5 F) | Resp 18 | SpO2 94% Previous Wts: Wt Readings from Last 5 Encounters: 02/24/23 110.7 kg (244 lb) 11/26/22 112 kg (247 lb) 10/29/22 115.7 kg (255 lb) 10/23/22 114.3 kg (252 lb) 10/23/22 115.7 kg (255 lb) Previous BPs: BP Readings from Last 5 Encounters: 02/24/23 110/58 01/20/23 140/70 01/15/23 110/70 12/20/22 136/80 12/13/22 110/68 Physical Exam Constitutional: General: She is not in acute distress. HENT: Head: Normocephalic and atraumatic. Nose: Nose normal. Mouth/Throat: Pharynx: Oropharynx is clear. Eyes: Extraocular Movements: Extraocular movements intact. Conjunctiva/sclera: Conjunctivae normal. Cardiovascular: Rate and Rhythm: Normal rate and regular rhythm. Pulmonary: Effort: Pulmonary effort is normal. No respiratory distress. Breath sounds: Normal breath sounds. Musculoskeletal: Comments: LLE: heel is bandaged, edema noted to the dorsum of the foot, no erythema. No edema notedto the RLE. Neurological: General: No focal deficit present. Mental Status: She is alert and oriented to person, place, and time. Diagnostic Data Review: Hematology Lab Results Component [...] 225 mg by mouth in the morning. With food..) 30 Cap 5 Blood Glucose Monitoring Suppl (D-CARE GLUCOMETER) w/Device KIT Use as directed. Use as directed once daily 1 Kit 0 Blood Glucose Monitoring Suppl (yetu VERIO) w/Device KIT Use as directed. Use as directed. 1 Kit 0 Spacer/Aero-Holding Chambers WISAM Use with inhaler. Wheezing/bronchitis. 1 Device 0 fishfishme Lancets 33G MISC USE UP TO FOUR TIMES A DAY Dx:E11.4 100 Each 5 Lancet Devices (yetu DELSimplex Solutions LANCING DEV) MISC Use four times a [...] ML BY MOUTH TWICE DAILY DIRECTED 2700 mL5 Budesonide-Formoterol Fumarate 160-4.5 MCG/ACT Inhalation Aerosol (Symbicort) Inhale by mouth 2 Puffs in the morning AND 2 Puffs before bedtime. 10.2 g 12 lamoTRIgine 100 MG Oral Tablet (LaMICtal) Take 1 Tablet by mouth every morning. 30 Tablet 5 Insulin Glargine Solostar 100 UNIT/ML Subcutaneous Solution Pen-injector (Basaglar KwikPen) Inject 30 units under the skin twice daily 45 mL 3 Insulin Glargine Solostar 100 UNIT/ML Subcutaneous Solution Pen-injector (Basaglar KwikPen) Inject 30 units under the skin twice daily 45 mL 3 Metoprolol Succinate ER 25 MG Oral Tablet Extended Release 24 Hour (toPROL XL) Take by mouth 1 Tablet in the morning. 90 Tablet 3 Atorvastatin Calcium 40 MG Oral Tablet (Lipitor) Take by mouth 1 Tablet in the morning. 90 Tablet 3 Spiriva Respimat 2.5 MCG/ACT Inhalation Aerosol Solution (Tiotropium [place] Monohydrate) Inhale bymouth 2 Puffs in the morning. 4 g 3 Estradiol 0.1 MG/GM Vaginal Cream Administer into the vagina 1 g in the morning. 42.5 g 12 Diclofenac Sodium 1 % External Gel (Voltaren) Apply topically to affected area 2 times a day. 150 g3 Vitamin D (Ergocalciferol) 1.25 MG (29876 UT) Oral Capsule (Drisdol) TAKE ONE CAPSULE [...] subcutaneously once per week 6 mL 3 Tamsulosin HCl 0.4 MG Oral Capsule (Flomax) Take 1 Capsule by mouth in the morning. Every morning..90 Capsule 3 lamoTRIgine 25 MG Oral Tablet (LaMICtal) Take 1 tablet by mouth in the morning for a total of 125mg, then 2 tablets by mouth in the evening every day metFORMIN HCl ER 500 MG Oral Tablet Extended Release 24 Hour (Glucophage XR) Take 1 Tablet by mouthdaily with dinner. 30 Tablet 5 Famotidine 40 MG Oral Tablet (Pepcid) Take [...] BY MOUTH EVERY 8 HOURS NEEDED FOR [id number] Tablet 5 Levothyroxine Sodium 88 MCG Oral Tablet (Levoxyl) take one tablet by mouth daily at least 30 minutes before breakfast and other medications 90 Tablet 3 Xifaxan 550 MG Oral Tablet (rifAXIMin) TAKE 1 TABLET BY MOUTH TWICE DAILY 60 Tablet 5 Montelukast Sodium 10 MG Oral Tablet (Singulair) TAKE 1 TABLET BY MOUTH ONCE DAILY 90 Tablet 1 UltiCare Pen Kaleva 31G X 5 MM (Insulin Pen Needle) use TWICE DAILY 200 Each 3 Torsemide 20 MG Oral Tablet (Demadex) TAKE 1 TABLET BY MOUTH EVERY MORNING. MAY TAKE 1 ADDITIONAL TABLET NEEDED FOR SWELLING. 90 Tablet 1 Spironolactone 50 MG Oral Tablet (Aldactone) Take 1 tablet by mouth in the morning and before bedtime 180 Tablet 3 Nystatin 733015 UNIT/GM External Powder (Nystop) Apply topically to affected area 3 times a day. Apply to right breast until rash resolved. 30 g 0 Sucralfate 1 GM Oral Tablet (Carafate) TAKE 1 TABLET BY MOUTH EVERY MORNING (Patient not taking: Reported on 02/24/2023) 90 Tablet 0 OneTouch Verio In Vitro Strip (Glucose Blood) use to test blood sugar 3 times daily 300 Strip 3 Nystatin 612072 UNIT/ML Mouth/Throat Suspension SWISH AND SWALLOW 5ML IN THE MORNING AND 5ML AT NOON AND 5 ML IN THE EVENING AND 5ML BEFORE BEDTIME, FOR THRUSH 240 mL 1 Potassium Chloride Mag ER 20 MEQ Oral Tablet Extended Release TAKE 1 TABLET BY MOUTH EVERY MORNING. use when taking additional torsemide 30 Tablet 1 oxyCODONE HCl 5 MG Oral Tablet [...] MOUTH THREE TIMES DAILY 90 Tablet 0 Vitamin C 500 MG [...] BY MOUTH EVERY MORNING 90 Tablet 0 No current facility-administered medications for this visit. Mobility Evaluation: MACH10 Assessment: Assistive Devices Used in the Home: Walker (standard or rollator) Recent Falls: Falls in the last 6 months: Yes - When last fall occurred: last month [facility]: DME (Durable Medical Equipment) needs Weasand Trimmer Services / Assistance with ADLs and Self-Care Routine Transportation Urgent Transportation Social Isolation Behavioral Health needs Lashay Johnston PA-C 2:46 PM *Communication sent to PCP (via [facility] if [facility]), Population Health Care Team members, relevant Specialty Care Physicians* documented in this encounter Plan of Treatment Upcoming Encounters Date Type Specialty Care Team Description 04/03/2023 Telemedicine [facility] Lashay Blevins PA-C [address] [place] [address] Beverly Lozoya [address] [place] [address] 04/09/2023 Office Visit Urology Alfredo Panda MD [address] [facility] [address] [place] [address] 04/23/2023 Office Visit Infectious Disease Kendall Bell, DO [address] [place] [address] 04/28/2023 Office Visit Family Medicine Brian Domínguez MD [address] [place] [address] 05/05/2023 Office Visit Cardiology Sobia Brewster, JIMMY [address] [place] [address] 05/09/2023 Office Visit Gastroenterology Altagracia Wendy ChaudhryDO [address] [place] [address] Scheduled Procedures Name Priority Associated Diagnoses Date/Ti [...] Additional history exists CKD PHOS USE SMARTSET 16688 10/24/202310/05, 02/18/2022, 02/17/2022, Additional history exists TSH 02/14/2024 02/13/2023, 10/05, 02/28/2022, Additional history exists CKD HGB USE SMARTSET 25353 02/19/202402/18, 02/11/2023, 02/07/2023, Additional history exists Colonoscopy [...] this encounter Medical Devices Implanted Type Area Chief Inspector Device Identifier Shelf Expiration Date Model / Serial / Lot Sut Steel 6 [id number] - [id number] Implanted:Qty: 1 on 02/15/2011 at [place] [facility] N/A: Chest DO NOT USE 07/21/2015 [id number] / / [id number] documented as of this encounter Visit Diagnoses Diagnosis 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)- Primary Recurrent UTI Urinary tract infection, site not specified S/P ORIF (open reduction internal fixation) fracture Other postprocedural status documented in this encounter Advance Directives Documents on File Type Date Recorded 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 Question Answer Comments Discussion of Advance Directives occurred with: Patient Does the patient have a Living Will? No Does the patient have Health Care Power of Novelty Twister Tender? No Code Status History Code Status Date [...] the patient have Health Care Power of Novelty Twister Tender? No Full Code 02/01/2010 4:02 PM 02/02/2010 4:09 PM This order reflects the patients wishes and were consensually agreed upon. Question Answer Comments Discussion of Advance Directives occurred with: Not Discussed Does the patient have a Living Will? No Does the patient have Health Care Power of Novelty Twister Tender? No Healthcare Agents on File Name Relationship Healthcare Agent [facility] Communication Carolyn Ballard Adult Child Health Care Agent Care Teams Cable Television Technician Relationship Specialty Start Date End Date Brian Domínguez MD [address] [place] [address] PCP - General Family Medicine 07/16/17 documented as of this encounter"
--- OUTSIDE RECORDS SUMMARY | 2023-05-17 12:12 | External Medical Summary | Summary of Care ---
Author Name Unknown Organization [facility] Address [address] [place] [address] Phone [phone] Care Team Providers Care Lapping Machine Operator Name Role Phone Brian Domínguez MD Primary Care Provider [phone]- [phone] Reason for Visit * Reason Comments case management Encounter Details Date Type Department Care Team Description 02/24/2023 Email Deployment SpecialistGiver Practice [facility] [address] [facility] [place] [address] Nayla Bellamy, RN Medical home patient encounter* Allergies Active Allergy Reactions Severity Noted Date Comments Propoxyphene Hcl Rash Low 10/29/2010 Fentanyl Diarrhea Low 04/26/2010 anxiety Methocarbamol Medium 10/05/2020 Other reaction(s): Delirium Methocarbamol Low 04/15/2007 Zolpidem Low 10/05/2020 Other reaction(s): Confusion documented as of this encounter (statuses as of 02/24/2023) Medications Medication Sig Dispensed Refills Start Date End Date Status ARIPiprazole (ABILIFY) 2 MG Tablet Take 1 Tablet by mouth in the morning. 0 2015 Active venlafaxine XR (EFFEXOR XR) 150 MG [id number]:Dep ression Take 1 Cap by mouth daily. With food. 30 Cap 5 09/02/2016 Active Additional Information Patient taking differently: 225 mgOral Daily(AM), With food.,Indications: Takes 225 mg total every morning with food (150 mg tab + 75 mg tab), Reported on 06/24/2022 Blood Glucose Monitoring Suppl (D-CARE GLUCOMETER) w/Device KITIndications:Unco ntrolled type 2 diabetes mellitus without complication, without long-term current use of insulin Use as directed. Use as directed once daily 1 Kit 0 11/18/2017 Active Blood Glucose Monitoring Suppl ([employer] VERIO) w/Device KIT Use as directed. Use [...] Respimat 2.5 MCG/ACT Inhalation Aerosol Solution (Tiotropium [place] Monohydrate) Inhale by mouth 2 Puffs in the morning. 4 g 3 04/25/2022 Active Estradiol 0.1 MG/GM Vaginal Cream Administer into the vagina 1 g in the morning. 42.5 g 12 05/07/2022 Active Diclofenac Sodium 1 % External Gel (Voltaren) Apply topically to affected area 2 times a day. 150 g 3 06/05/2022 Active Vitamin D (Ergocalciferol) 1.25 MG (22215 UT) Oral Capsule (Drisdol)Indication s:Vitamin D deficiency [...] 90 Tablet 1 12/19/2022 Active UltiCare Pen [place] 31G X 5 MM (Insulin Pen Needle) use TWICE DAILY 200 Each 3 12/23/2022 Active Torsemide 20 MG Oral Tablet (Demadex)Indication s:Atherosclerotic heart disease of [place] coronary artery with other forms of angina pectoris (HCC),Hypertensive heart disease with chronic diastolic congestive heart failure (HCC) TAKE 1 TABLET BY MOUTH EVERY MORNING. MAY TAKE 1 ADDITIONAL TABLET NEEDED FOR SWELLING. 90 Tablet 1 12/24/2022 Active Spironolactone 50 MG Oral Tablet (Aldactone)Indicati ons:GONZAELZ (nonalcoholic steatohepatitis),Po rtal hypertension (HCC),Chronic liver disease and cirrhosis (HCC),Portal hypertensive gastropathy (HCC) Take 1 tablet by mouth in the morning and before bedtime 180 Tablet 3 01/16/2023 Active Nystatin 426959 UNIT/GM External Powder (Nystop)Indications :Candidal intertrigo Apply topically to affected area 3 times a day. Apply to right breast until rash resolved. 30 g 0 01/15/2023 Active Sucralfate 1 GM Oral Tablet (Carafate)Indicatio ns:Gastroesophageal reflux disease with esophagitis without hemorrhage TAKE 1 TABLET BY MOUTH EVERY MORNING 90 Tablet 0 01/17/2023 Active Additional Information Patient not taking.Reported on 02/24/2023 [facility] In Vitro Strip (Glucose Blood)Indications:T ype 2 diabetes mellitus with diabetic neuropathy, with long-term current use of insulin (HCC) use to test blood sugar 3 times daily 300 Strip 3 01/16/2023 Active Nystatin 939258 UNIT/ML Mouth/Throat Suspension SWISH AND SWALLOW 5ML [...] as of this encounter (statuses as of 02/24/2023) Active Problems Problem Noted Date Medical home patient encounter 3 Hypertensive heart and kidne y disease with chronic diastolic congestive heart failure and stage 3a chronic kidney disease 12/28/2021 Last Assessment & Plan: Euvolemic, BP stable EF 55% 09/25 GFR 69 02/25 -Continue Torsemide 20 mg BID, Spironolactone 25 mg BID, Tropol XL 50 mg daily Atherosclerotic heart diseas e of [place] coronary artery with other forms of angina pectoris 11/15/2021 Last Assessment & Plan: Stable. No angina -continue toprol, ASA and statin Seasonal allergies 11/15/2021 Recurrent UTI 10/07/2021 Last Assessment & Plan: Followed by urology Pt is supposed to be on methenamine--will need to clarify with dgt that she is giving this. 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/2014 doping supervisor current use of anticoagulant therapy 1 [...] as of this encounter (statuses as of 02/24/2023) Immunizations Name Administration Dates Next Due COVID-19 [...] Progress Notes * Nayla Bellamy RN - 02/24/2023 1:04 PM EDT Email Deployment Specialist Progress Note: Date: 02/24/23 Assigned Patient Tier: 2 Connected with patient via telephone. Verified patient name/. Advised patient that call is beingrecorded for quality and training purposes. Assessment: Pt. noted the following: She is "doing okay". Is NWB to [place] Leg. Is using slide board to transfer from seating. Has [facility], Nursing to change mejia cath and OT to work with her 2x a week until able to bear weight then will work more with PT. Caregivers in place. She has pain 6/10 constantlysince fall/fracture.surgery. Is being referred to the wound clinic for heel ulcer. Reports that mejia is functioning without issues. Did you receive an alert for an annual wellness visit? No Is this call for a hospital, mcfp or rehab facility discharge to home? Yes [facility] to [facility]. Medication Reconciliation: Medication Reconciliation completed: yes at OV today with Dr. Trent Review of Current goals: Discussed the following patient-centered CM goals with the patient during this discussion: -SAFETY: Prevent falls or injuries -Status: On Track caregivers present with patient. -Pain: Patient will have pain well managed -Status: At Risk pain presently 12/14. -: Patient will have issues addressed -Status: On Track home health to address mejia cath change. COPD Patient: No CHF Patient: YES Scale: NO, plan: Patient NWB at this time, unable to use scales. CM Plan: Reviewed 3 Red Flags with patient. Advised to call CM with any of the following: Red Flag 1: fever,2. Chills 3. Urinary concerns Remote Patient Monitoring: At this time, RPM not offered/considered for patient due to NWB status. Plan for Future Contacts: Plan to follow up within 1 week to check progress on the following goals/needs post op/recovery status. Planned contacts from the following parties will occur this week: PCP office visit and home health PT/OT and nursing as additional contacts per workflow. Advancement/Closure Plan: Keep patient at current Tier with reassessment per workflow. Patient provided CM contact information and encouraged to call with any changes in condition. SNP Member? No PCP Notified of enrollment in CM/HM program: Yes Is Provider in agreement with POC? Yes Nayla Bellamy RN Outpatient Case Management documented in this encounter Plan of Treatment Upcoming Encounters Date Type Specialty Care Team Description 03/03/2023 Telemedicine [facility] Lashay Blevins PA-C [address] [place] [address] Beverly Lozoya, [facility] [address] [place] [address] 04/09/2023 Office Visit Urology Alfredo Panda MD [address] [facility] [address] 04/23/2023 Office Visit Infectious Disease Kendall Bell, DO [address] [place] [address] 04/28/2023 Office Visit Family Medicine Brian Domínguez MD [address], [place] [phone] 05/05/2023 Office Visit Cardiology Sobia Brewster PA-C [address] [place] [address] 05/09/2023 Office Visit Gastroenterology Wendy Frias, DO [address] [place] [address] Scheduled Procedures Name Priority Associated Diagnoses Date/Ti [...] Additional history exists CKD PHOS USE SMARTSET 32628 10/24/202310/05, 02/18/2022, 02/17/2022, Additional history exists TSH 02/14/2024 02/13/2023, 10/05, 02/28/2022, Additional history exists CKD HGB USE SMARTSET 09773 02/19/202402/18, 02/11/2023, 02/07/2023, Additional history exists Colonoscopy [...] this encounter Medical Devices Implanted Type Area Synthetic Cloth Binding Cutter Device Identifier Shelf Expiration Date Model / Serial / Lot Jenna Rojas 6 [id number] - [id number] Implanted:Qty: 1 on 02/15/2011 at OR [facility] [place] N/A: Chest DO NOT USE 07/21/2015 [id number] / / [id number] documented as of this encounter Visit Diagnoses Diagnosis Medical home patient encounter- Primary Other specified examination documented in this encounter Advance Directives Documents on File Type Date Recorded Patient Evidence Technician Expl jeremy POL 05/06/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 Question Answer Comments Discussion of Advance Directives occurred with: Patient Does the patient have a Living Will? No Does the patient have Health Care Power of Research Program Manager? No Code Status History Code Status [...] patient have Health Care Power of Research Program Manager? No Full Code 02/01/2010 4:02 PM 02/02/2010 4:09 PM This order reflects the patients wishes and were consensually agreed upon. Question Answer Comments Discussion of Advance Directives occurred with: Not Discussed Does the patient have a Living Will? No Does the patient have Health Care Power of Research Program Manager? No Healthcare Agents on File Name Relationship Healthcare Agent [facility] Communication Carolyn Goldmangerard Adult Child Health Care Agent Care Teams Lapping Machine Operator Relationship Specialty Start Date End Date Brian Domínguez MD [address] [place] [address] PCP - General Family Medicine 07/16/17 documented as of this encounter
--- OUTSIDE RECORDS SUMMARY | 2023-05-17 12:12 | External Medical Summary | Summary of Care ---
Author Name Unknown Organization [facility] Address [address] [place] [address] Phone [phone] Care Team Providers Care Radiological Metallurgist Name Role Phone Brian Domínguez MD Primary Care Provider [phone]- [phone] Reason for Visit * Reason Comments case management Encounter Details Date Type Department Care Team Description 02/26/2023 Line Production CookFurniture Upholstery Mechanic Practice [facility] [address] [facility] [place] [address] Nayla Bellamy, RN Medical home patient encounter* [...] Active venlafaxine XR (EFFEXOR XR) 150 MG [id number]:Dep ression Take 1 Cap by mouth daily. [...] 0 11/18/2017 Active Blood Glucose Monitoring Suppl ([employer] VERIO) w/Device KIT Use as directed. Use [...] Respimat 2.5 MCG/ACT Inhalation Aerosol Solution (Tiotropium [place] Monohydrate) Inhale by mouth 2 Puffs in the morning. 4 g 3 04/25/2022 Active Estradiol 0.1 MG/GM Vaginal Cream Administer into the vagina 1 g in the morning. 42.5 g 12 05/07/2022 Active Diclofenac Sodium 1 % External Gel (Voltaren) Apply topically to affected area 2 times a day. 150 g 3 06/05/2022 Active Vitamin D (Ergocalciferol) 1.25 MG (88797 UT) Oral Capsule (Drisdol)Indication s:Vitamin D deficiency [...] 90 Tablet 1 12/19/2022 Active UltiCare Pen [place] 31G X 5 MM (Insulin Pen Needle) use TWICE DAILY 200 Each 3 12/23/2022 Active Torsemide 20 MG Oral Tablet (Demadex)Indication s:Atherosclerotic heart disease of [place] coronary artery with other forms of angina [...] bedtime 180 Tablet 3 01/16/2023 Active Nystatin 615740 UNIT/GM External Powder (Nystop)Indications :Candidal intertrigo Apply topically to affected area 3 times a day. Apply to right breast until rash resolved. 30 g 0 01/15/2023 Active Sucralfate 1 GM Oral Tablet (Carafate)Indicatio ns:Gastroesophageal reflux disease with esophagitis without hemorrhage TAKE 1 TABLET BY MOUTH EVERY MORNING 90 Tablet 0 01/17/2023 Active Additional Information Patient not taking.Reported on 02/24/2023 [facility] In Vitro Strip (Glucose Blood)Indications:T ype 2 diabetes mellitus with diabetic neuropathy, with long-term current use of insulin (HCC) use to test blood sugar 3 times daily 300 Strip 3 01/16/2023 Active Nystatin 792829 UNIT/ML Mouth/Throat Suspension SWISH AND SWALLOW 5ML [...] 1 dose. 1 Tablet 0 02/26/2023 02/27/20 Active documented as of this encounter (statuses [...] mg daily Atherosclerotic heart diseas e of [place] coronary artery with other forms of angina pectoris 11/15/2021 Last Assessment & Plan: Stable. No angina -continue toprol, ASA and statin Seasonal allergies 11/15/2021 Recurrent UTI 10/07/2021 Last Assessment & Plan: Followed by urology Pt is supposed to be on methenamine--will need to clarify with dgt that she is giving this. 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 Call made to [facility] who is able to obtain this swab. They will have nurse stop at [facility] to pick up operator the swab, and can do next visit on 03/03. Called patient to make aware. Faxed order to [facility] CARRASCO. documented in this encounter Plan of Treatment Upcoming Encounters Date Type Specialty Care Team Description 03/03/2023 Telemedicine [facility] Lashay Blevins PA-C [address] [place] [address] Beverly Lozoya, [address] [place] [phone] 04/09/2023 Office Visit Urology Alfredo Panda MD [address] [place], [place] [phone] 04/23/2023 Office Visit Infectious Disease Kendall Bell, DO [address] [place] [address] 04/28/2023 Office Visit Family Medicine Brian Domínguez MD [address] [place] [address] 05/05/2023 Office Visit Cardiology Sobia Brewster PA-C [address] [place] [address] 05/09/2023 Office Visit Gastroenterology Wendy Frias DO [address] [place] [address] Scheduled Procedures Name Priority Associated Diagnoses Date/Ti [...] Additional history exists CKD PHOS USE SMARTSET 52364 10/24/202310/05, 02/18/2022, 02/17/2022, Additional history exists TSH 02/14/2024 02/13/2023, 10/05, 02/28/2022, Additional history exists CKD HGB USE SMARTSET 56299 02/19/202402/18, 02/11/2023, 02/07/2023, Additional history exists Colonoscopy [...] this encounter Medical Devices Implanted Type Area Garment Inspector Device Identifier Shelf Expiration Date Model / Serial / Lot Jenna Rojas 6 [id number] - [id number] Implanted:Qty: 1 on 02/15/2011 at [place] [facility] [place]A: Chest DO NOT USE 07/21/2015 [id number] / / [id number] documented as of this encounter Visit Diagnoses Diagnosis Medical home patient encounter- Primary Other specified examination documented in this encounter Advance Directives Documents on File Type Date Recorded Patient Histology Tech 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 Question Answer Comments Discussion of Advance Directives occurred with: Patient Does the patient have a Living Will? No Does the patient have Health Care Power of Jewelry Manager? No Code Status History Code Status [...] the patient have Health Care Power of Jewelry Manager? No Full Code 02/01/2010 4:02 PM 02/02/2010 4:09 PM This order reflects the patients wishes and were consensually agreed upon. Question Answer Comments Discussion of Advance Directives occurred with: Not Discussed Does the patient have a Living Will? No Does the patient have Health Care Power of Jewelry Manager? No Healthcare Agents on File Name Relationship Healthcare Agent [facility] Communication Carolyn Ballard Adult Child Health Care Agent Care Teams Radiological Metallurgist Relationship Specialty Start Date End Date Brian Domínguez MD [address] [facility] [id number] PCP - General Family Medicine 07/16/17 documented as of this encounter
--- OUTSIDE RECORDS SUMMARY | 2023-05-17 12:12 | External Medical Summary | Summary of Care ---
Author Name Unknown Organization [facility] Address [address] [place] [address] Phone [phone] Care Team Providers Care Sales Merchandise Associate Name Role Phone Brian Domínguez MD Primary Care Provider [phone]- [phone] Reason for Visit * Reason Onset Date Comments case management 03/03/2023 Encounter Details Date Type Department Care Team Description 03/03/2023 Telephone Family Practice [facility] [address] [place] [address] Nayla Bellamy, fuel management handler Allergies Active Allergy Reactions Severity Noted Date [...] Active venlafaxine XR (EFFEXOR XR) 150 MG [id number]:Dep ression Take 1 Cap by mouth daily. [...] 0 11/18/2017 Active Blood Glucose Monitoring Suppl ([employer] VERIO) w/Device KIT Use as directed. Use [...] Respimat 2.5 MCG/ACT Inhalation Aerosol Solution (Tiotropium [place] Monohydrate) Inhale by mouth 2 Puffs in [...] 06/05/2022 Active Vitamin D (Ergocalciferol) 1.25 MG (26171 UT) Oral Capsule (Drisdol)Indication s:Vitamin D deficiency [...] 90 Tablet 1 12/19/2022 Active UltiCare Pen [place] 31G X 5 MM (Insulin Pen Needle) use TWICE DAILY 200 Each 3 12/23/2022 Active Torsemide 20 MG Oral Tablet (Demadex)Indication s:Atherosclerotic heart disease of [place] coronary artery with other forms of angina [...] bedtime 180 Tablet 3 01/16/2023 Active Nystatin 859298 UNIT/GM External Powder (Nystop)Indications :Candidal intertrigo Apply [...] daily 300 Strip 3 01/16/2023 Active Nystatin 902657 UNIT/ML Mouth/Throat Suspension SWISH AND SWALLOW 5ML [...] mg daily Atherosclerotic heart diseas e of [place] coronary artery with other forms of angina pectoris 11/15/2021 Last Assessment & Plan: Stable. No angina -continue toprol, ASA and statin Seasonal allergies 11/15/2021 Recurrent UTI 10/07/2021 Last Assessment & Plan: Followed by urology Pt is supposed to be on methenamine--will need to clarify with dgt that she is giving this. 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 Anxiety 08/05/2017 Iyiksip-Yvwbm-Ibkcj disease 06/27/2015 Last Assessment & Plan: Frequent [...] 05/06/2018 019 Atherosclerotic heart diseas e of [place] coronary artery with other forms of angina [...] 10/31/201008/08 Acute coronary syndrome 10/30/2010 01/22/20 14 [place] Research Other*[id number] 02/02/2010 04/18/2014 Overview: [place] Registry, Dr Joel CASAS Obesity, morbid (more [...] Miscellaneous Notes * Telephone Encounter - Nayla Bellamy, RN - 03/03/2023 3:58 PM EDT Received teams message from provider, lashay Long about patients baby aspirin, the home health list in the patients home had this as BID dosing. Called [facility] and made aware that this is once daily. Spoke with nurse Portillo who states they did have list listed as that. documented in this encounter Plan of Treatment Upcoming Encounters Date Type Specialty Care Team Description 04/03/2023 Telemedicine [facility] Lashay Blevins PA-C [address] [place] [address] Beverly Lozoya, [address] [place] [phone] 04/09/2023 Office Visit Urology Alfredo Panda MD [address] [place] [address] 04/23/2023 Office Visit Infectious Disease Kendall Bell, DO [address] [place] [address] 04/28/2023 Office Visit Family Medicine Brian Domínguez MD [address] [place] [address] 05/05/2023 Office Visit Cardiology Sobia Brewster PA-C [address] [facility] [place] [address] 05/09/2023 Office Visit Gastroenterology Wendy Frias, DO [address] [place] [address] Scheduled Procedures Name Priority Associated Diagnoses Date/Ti [...] Additional history exists CKD PHOS USE SMARTSET 95297 10/24/202310/05, 02/18/2022, 02/17/2022, Additional history exists TSH 02/14/2024 02/13/2023, 10/05, 02/28/2022, Additional history exists CKD HGB USE SMARTSET 76636 02/19/202402/18, 02/11/2023, 02/07/2023, Additional history exists Colonoscopy [...] this encounter Medical Devices Implanted Type Area Low Voltage Technician Device Identifier Shelf Expiration Date Model / Serial / Lot Sut Bob 6 M654g - [id number] Implanted:Qty: 1 on 02/15/2011 [place] [facility] [place]A: Chest DO NOT USE 07/21/2015 [id number] / / [id number] documented as of this encounter Advance Directives Documents on File Type Date Recorded Patient Patrol Man 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 Question Answer Comments Discussion of Advance Directives occurred with: Patient Does the patient have a Living Will? No Does the patient have Health Care Power of Ferryboat Helper? No Code Status History Code Status Date [...] the patient have Health Care Power of Ferryboat Helper? No Full Code 02/01/2010 4:02 PM 02/02/2010 4:09 PM This order reflects the patients wishes and were consensually agreed upon. Question Answer Comments Discussion of Advance Directives occurred with: Not Discussed Does the patient have a Living Will? No Does the patient have Health Care Power of Ferryboat Helper? No Healthcare Agents on File Name Relationship Healthcare Agent [facility] Communication Carolyn Elio Adult Child Health Care Agent Care Teams Sales Merchandise Associate Relationship Specialty Start Date End Date Brian Domínguez MD [address] [place] [address] PCP - General Family Medicine 07/16/17 documented as of this encounter
--- OUTSIDE RECORDS SUMMARY | 2023-05-17 12:12 | External Medical Summary ---
Author Name Unknown Address Unknown Organization K01:LABORATORY [address] Miguel Murrell [facility] [address] Laboratory Report Ordering Provider Test Date Status LETTY UMANZOR 03/03/2023 10:46:00 Final Observation Date Value Abnormality Reference (Units ) Status Liyah glabrata DNA [Presence] in Vaginal fluid by ARIELA with probe detection 03/03/2023 10:46:00 Positive Abnormal Negative Final Liyah glabrata detected by PCR.

Organism may be associated with colonization. Clinical correlation needed. Liyah albicans DNA [Presen ce] in Vaginal fluid by ARIELA with probe detection 03/03/2023 10:46:00 Negative Negative Final Liyah albicans not detecte d by PCR. Trichomonas vaginalis DNA [P resence] in Vaginal fluid by ARIELA with probe detection 03/03/2023 10:46:00 Negative Negative Final Trichomonas vaginalis not de tected by PCR. Gardnerella vaginalis DNA [P resence] in Vaginal fluid by Probe with signal amplification 03/03/2023 10:46:00 Negative Negative Final Gardnerella vaginalis not de tected by PCR.

This test was developed and its performance characteristics determined by [facility]. It has not been cleared or approved by the U.S. Food and Drug Administration (FDA). FDA does not require this test to go through premarket FDA review. This test is used for clinical purposes. It should not be regarded as investigational or for research. This laboratory is certified under the Clinical Laboratory Improvement Amendments (CLIA) as qualified to perform high complexity clinical laboratory testing.

The validation of self-collected vaginal swabs for this assay was developed and performance characteristics determined by [facility]. The validation of alternate specimen types has not been cleared or approved by the U.S. Food and Drug Administration (FDA). It has been determined that such clearance or approval is not necessary.

null Performing Location LABORATORY [facility] - [facility] [address] [facility] [address]
--- OUTSIDE RECORDS SUMMARY | 2023-05-17 12:13 | External Medical Summary | Summary of Care ---
Author Name Unknown Organization [facility] Address [address] [place] [address] Phone [phone] Care Team Providers Care Border Measurer And Cutter Name Role Phone Brian Domínguez MD Primary Care Provider [phone] Reason for Visit * Reason Comments eRx-Medication Refill Encounter Details Date Type Department Care Team Description 02/13/[address] [facility] [address] [place] [address] Brian Domínguez MD [address] [place] [address] Allergies Active Allergy Reactions Severity Noted Date Comments Propoxyphene Hcl Rash Low 10/29/2010 Fentanyl Diarrhea Low 04/26/2010 anxiety Methocarbamol Medium 10/05/2020 Other reaction(s): Delirium Methocarbamol Low 04/15/2007 Zolpidem Low 10/05/2020 Other reaction(s): Confusion documented as of this encounter (statuses as of 02/13/2023) Medications Medication Sig Dispensed Refills Start Date End Date Status ARIPiprazole (ABILIFY) 2 MG Tablet Take 1 Tablet by mouth in the morning. 0 07/11/19 16 Active venlafaxine XR (EFFEXOR XR) 150 MG BU64Ekywitpezmq:De pression Take 1 Cap by mouth daily. With food. 30 Cap 5 09/02/19 17 Active Additional Information Patient taking differently: 225 mgOral Daily(AM), With food.,Indications: Takes 225 mg total every morning with food (150 mg tab + 75 mg tab), Reported on 06/24/2022 Blood Glucose Monitoring Suppl (D-Nextworth GLUCOMETER) w/Device KITIndications:Unc ontrolled type 2 diabetes mellitus without complication, without long-term current use of insulin Use as directed. Use as directed once daily 1 Kit 0 11/19/19 18 Active Blood Glucose Monitoring Suppl (Collective Bias) w/Device KIT Use as directed. Use as [...] DIRECTED 2700 mL 5 10/05/19 22 Active Budesonide-Formote rol Fumarate 160-4.5 MCG/ACT Inhalation Aerosol (Symbicort) Inhale by mouth 2 Puffs in the morning AND 2 Puffs before bedtime. 10.2 g 12 02/19/20 22 Active lamoTRIgine 100 MG Oral Tablet (LaMICtal) Take 1 Tablet by mouth every morning. 30 Tablet 5 03/12/20 22 Active Insulin Glargine Solostar 100 UNIT/ML Subcutaneous Solution Pen-injector (Basaglar KwikPen)Indication s:Type 2 diabetes mellitus with diabetic neuropathy, with long-term current use of insulin (HCC) Inject 30 units under the skin twice daily 45 mL 3 04/16/20 22 Active Insulin Glargine Solostar 100 UNIT/ML Subcutaneous Solution Pen-injector (Basaglar KwikPen)Indication s:Type 2 diabetes mellitus with diabetic neuropathy, with long-term current use of insulin (HCC) Inject 30 units under the skin twice daily 45 mL 3 04/17/20 22 Active Metoprolol Succinate ER 25 MG Oral Tablet Extended Release 24 Hour (toPROL XL) Take by mouth 1 Tablet in the morning. 90 Tablet 3 04/19/20 22 Active Atorvastatin Calcium 40 MG Oral Tablet (Lipitor)Indicatio ns:Dyslipidemia, goal LDL below 70 Take by mouth 1 Tablet in the morning. 90 Tablet 3 04/25/20 22 Active Spiriva Respimat 2.5 MCG/ACT Inhalation Aerosol Solution (Tiotropium [place] Monohydrate) Inhale by mouth 2 Puffs in the morning. 4 g 3 04/25/20 22 Active Estradiol 0.1 MG/GM Vaginal Cream Administer into the vagina 1 g in the morning. 42.5 g 12 05/07/20 22 Active Diclofenac Sodium 1 % External Gel (Voltaren) Apply topically to affected area 2 times a day. 150 g 3 06/05/20 22 Active Vitamin D (Ergocalciferol) 1.25 MG (46668 UT) Oral Capsule (Drisdol)Indicatio ns:Vitamin D deficiency [...] week 6 mL 3 08/20/19 23 Active Tamsulosin HCl 0.4 MG Oral Capsule (Flomax) Take 1 Capsule by mouth in the morning. Every morning.. 90 Capsule 3 09/19/19 23 Active lamoTRIgine 25 MG Oral Tablet (LaMICtal) Take 1 tablet by mouth in the morning for a total of 125mg, then 2 tablets by mouth in the evening every day 0 09/09/19 23 Active metFORMIN HCl ER 500 MG Oral Tablet Extended Release 24 Hour (Glucophage XR) Take 1 Tablet by mouth daily with dinner. 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 60 Tablet 0 01/28/20 23 Active Morphine Sulfate ER 15 MG Oral Tablet Extended Release (Ms Contin)Indications :Lumbar spondylosis Take 1 Tablet by mouth at bedtime as needed for Pain, Severe. 30 Tablet 0 01/28/20 23 Active clonazePAM 0.5 MG Oral Tablet (KlonoPIN)Indicati ons:Bipolar I disorder, most recent episode depressed, moderate (HCC) TAKE ONE TABLET BY MOUTH THREE TIMES DAILY 90 Tablet 0 01/28/20 23 Active Vitamin C 500 MG Oral Tablet [...] MORNING 90 Tablet 0 02/14/20 23 Active Oxybutynin Chloride ER 10 MG Oral Tablet Extended Release 24 Hour (Ditropan XL) TAKE ONE TABLET BY MOUTH IN THE MORNING 90 Tablet 0 11/20/19 23 023 Discontinued documented as of this encounter (statuses as of 02/13/2023) Active Problems Problem Noted Date Medical home patient encounter 3 Hypertensive heart and kidne y disease with chronic diastolic congestive heart failure and stage 3a chronic kidney disease 12/28/2021 Last Assessment & Plan: Euvolemic, BP stable EF 55% 09/25 GFR 69 02/25 -Continue Torsemide 20 mg BID, Spironolactone 25 mg BID, Tropol XL 50 mg daily 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 No angina -continue toprol, ASA and statin Seasonal allergies 11/15/2021 Recurrent UTI 10/07/2021 Last Assessment & Plan: Followed by urology Pt is supposed to be on methenamine--will need to clarify with dgt that she is giving this. 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/2014 [facility] current use of anticoagulant therapy 1 08/18/2005 [...] as of this encounter (statuses as of 02/13/2023) Immunizations Name Administration Dates Next Due COVID-19 mRNA, LNP-s, No Pre serve, 2-Dose Series (Moderna) 06/10/2021,08/29/2020,08/01/2020 Pneumococcal Conjugate Vacc, 13 Valent (Prevnar) 02/14/2017 Pneumococcal Polysaccharide PPV23 (Pneumovax) 02/06/2016,06/26/2011,06/04/2006,06/26 Seasonal Influenza Virus Vac cine, Unspecified Formulation 03/14/2022,04/10/2021,05/22/2020,04/12,05/08/2018,07/16/2017,03/21/2015 ,04/28/2013,04/09/2012,06/11/2011,03/08,04/10/2009,04/06/2008, 7,06/04/2006 Seasonal Influenza, Quadriva lent Hd (Fluzone Hd) 03/14/2022,04/10/2021 Seasonal Influenza, Quadriva lent, No Preserve, 6 Mons & Above, IM 04/12/2019,05/08/2018,07/16/2017 Seasonal Influenza, Quadriva lent, No Preserve, Adjuvanted, 65+ Yrs, IM 05/22/2020 Seasonal Influenza, Split, I IV3, With Preserve, [...] encounter Miscellaneous Notes * Telephone Encounter - Liz Lazcano LPN - 02/13/2023 9:02 AM EDTPending Prescriptions: Disp Refills Oxybutynin Chloride ER 10 MG Oral Tablet E*90 Tab*0 Sig: TAKE 1 TABLET BY MOUTH EVERY MORNING * Telephone Encounter - Liz Lazcano LPN - 02/13/2023 9:01 AM EDT Provider to address: Reason for Call: eRx-Medication Refill Contact: Telephone Call Contact Type: Medication Outcome: Pending Prescriptions: Disp Refills Oxybutynin Chloride ER 10 MG Oral Tablet *90 Tab*0 Sig: TAKE 1 TABLET BY MOUTH EVERY MORNING Last Visit: 01/15/2023 (in office), 03/06/2022 (telemedicine) Next Visit: 04/28/2023 Last date the medication was ordered: 11/19/2022 Patient Active Problem List Diagnosis Code PERONEAL MUSCLE ATROPHY G60.0 Gastroesophageal reflux disease without esophagitis K21.9 S/P angioplasty with stent Z95.820 Dyslipidemia, goal LDL below 70 E78.5 Hypothyroidism E03.9 GONZALEZ (nonalcoholic steatohepatitis) K75.81 Bipolar I disorder, most recent episode depressed, moderate (HCC) F31.32 HTN, goal below 130/80 I10 MEDICATION USE AGREEMENT [id number] Aicwtai-Ufyjc-Gmpxx disease G60.0 Anxiety F41.9 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, T40.601A Hypertensive heart disease with chronic diastolic congestive heart failure (HCC) I11.0, I50.32 Fatty liver K76.0 Chronic liver disease and cirrhosis (HCC) K74.60, K76.9 Portal hypertensive gastropathy (HCC) K76.6, K31.89 Moderate aortic stenosis I35.0 Type 2 diabetes mellitus with diabetic neuropathy (HCC) E11.40 Diabetic gastroparesis (HCC) E11.43, K31.84 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 carman (current) use of insulin (HCC) Z79.4 Pelvic pain R10.2 Urge incontinence N39.41 Type 2 diabetes mellitus with diabetic neuropathy, with long-term current use of insulin ([facility]) E11.40, Z79.4 Type 2 diabetes mellitus with stage 3a chronic kidney disease, with long- term current use of insulin ([facility]) E11.22, N18.31, Z79.4 Recurrent UTI N39.0 Atherosclerotic heart disease of [place] coronary artery with other forms of angina pectoris ([facility]) I25.118 Seasonal allergies J30.2 Hypertensive heart and kidney disease with chronic diastolic congestive heart failure and rvxzg2d chronic kidney disease ([facility]) I13.0, I50.32, N18.31 Medical home patient encounter Z00.8 Labs: Lab Results Component Value Date/Time CREATININE - [facility] 1.0 02/11/2023 05:50 AM CREATININE - [facility] 1.0 07/18/2020 12:20 PM CREATININE, RANDOM URINE - [facility] 41 10/23/2022 10:59 AM CREATININE, RANDOM URINE - [facility] 144 07/16/2017 12:06 PM CREATININE-OUTSIDE LAB 1.13 02/26/2021 12:00 AM Lab Results Component Value Date/Time POTASSIUM - [facility] 4.4 02/11/2023 05:50 AM POTASSIUM - [facility] 4.6 07/18/2020 12:20 PM POTASSIUM, WHOLE BLOOD - [facility] 4.5 02/15/2011 04:02 PM POTASSIUM-OUTSIDE LAB 4.0 02/26/2021 12:00 AM Lab Results Component Value Date/Time TSH - [facility] 2.74 10/23/2022 10:46 AM [...] - [facility] 6.3 (H) 02/18/2019 02:55 PM Total Time including non face to face (minutes): 5 * Telephone Encounter - Marine Jacob - 02/13/2023 6:55 AM EDTPending Prescriptions: Disp Refills Oxybutynin Chloride ER 10 MG Oral Tablet E*90 Tab*0 Sig: TAKE 1TABLET BY MOUTH EVERY MORNING documented in this encounter Plan of Treatment Upcoming Encounters Date Type Specialty Care Team Description 02/17/2023 Pharmacy Pharmacy [facility] [address] [facility] [place] [id number] 02/19/2023 Office Visit Gynecology Urology Nir Landa MD [address] [facility] [place] [address] Nurse Yury Fox [address] [place] [address] 03/03/2023 Telemedicine [facility] Lashay Blevins PA-C [address] [place] [address] Beverly Lozoya, [facility] [address] [place] [phone] 04/09/2023 Office Visit Urology Alfredo Panda MD [address] [place] [address] 04/23/2023 Office Visit Infectious Disease Kendall Bell, DO [address] [place] [address] 04/28/2023 Office Visit Family Medicine Brian Domínguez MD [address] [place] [address] 05/05/2023 Office Visit Cardiology Sobia Brewster PA-C [address] [place] [address] 05/09/2023 Office Visit Gastroenterology Wendy Frias, DO [address] [place] [address] Scheduled Procedures Name Priority Associated Diagnoses Date/Ti [...] 10/23/2022, 04/07, 11/01/2021, Additional history exists GFR 08/14/2023 02/11/2023, 080 10/2022, 12/05/2022, Additional history exists Albumin/Creatinine Ratio 10/24/2023 023, 07/17/2022, 10/05/2020, Additional history exists CKD PHOS USE SMARTSET 03925 10/24/202310/05, 02/18/2022, 02/17/2022, Additional history exists TSH 10/24/2023 10/23/2022, 02/05, 09/24/2021, Additional history exists CKD HGB USE SMARTSET 49057 02/12/202402/11, 02/07/2023, 11/21/2022, Additional history exists Colonoscopy 05/20/2024 05/20/2014 Colorectal [...] this encounter Medical Devices Implanted Type Area Hog Room Supervisor Device Identifier Shelf Expiration Date Model / Serial / Lot Jenna Denny [id number] - [id number] Implanted:Qty: 1 on 02/15/2011 at [place] [facility] N/A: Chest DO NOT USE 07/21/2015 [id number] / / [id number] documented as of this encounter Advance Directives Documents on File Type Date Recorded Patient Pressure Supervisor 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 Question Answer Comments Discussion of Advance Directives occurred with: Patient Does the patient have a Living Will? No Does the patient have Health Care Power of Horn Player? No Code Status History Code Status Date [...] the patient have Health Care Power of Horn Player? No Full Code 02/01/2010 4:02 PM 02/02/2010 4:09 PM This order reflects the patients wishes and were consensually agreed upon. Question Answer Comments Discussion of Advance Directives occurred with: Not Discussed Does the patient have a Living Will? No Does the patient have Health Care Power of Horn Player? No Healthcare Agents on File Name Relationship [facility] Carolyn Goldmangerard Adult Child Health Care Agent Care Teams Border Measurer And Cutter Relationship Specialty Start Date End Date Brian Domínguez MD [address] [place] [address] PCP - General Family Medicine 07/16/17 documented as of this encounter
--- OUTSIDE RECORDS SUMMARY | 2023-05-17 12:13 | External Medical Summary | Summary of Care ---
Author Name Unknown Organization [facility] Address [address] [place] [address] Phone [phone] Care Team Providers Care Senior Manager Asset Protection Name Role Phone Brian Domínguez MD Primary Care Provider [phone]- [phone] Reason for Visit * Reason Comments eRx-Medication Refill Encounter Details Date Type Department Care Team Description 02/13/2023 Refill [facility] [address] [place] [address] Brian Domínguez MD [address] [place] [address] Allergies Active Allergy Reactions Severity [...] Active venlafaxine XR (EFFEXOR XR) 150 MG [id number]:De pression Take 1 Cap by mouth daily. With food. 30 Cap 5 09/02/19 17 Active Additional Information Patient taking differently: 225 mgOral Daily(AM), With food.,Indications: Takes 225 mg total every morning with food (150 mg tab + 75 mg tab), Reported on 06/24/2022 Blood Glucose Monitoring Suppl (D-Autotether GLUCOMETER) w/Device KITIndications:Unc ontrolled type 2 diabetes mellitus without complication, without long-term current use of insulin Use as directed. Use as directed once daily 1 Kit 0 11/19/19 18 Active Blood Glucose Monitoring Suppl (nuPSYS) w/Device KIT Use as directed. Use as [...] Respimat 2.5 MCG/ACT Inhalation Aerosol Solution (Tiotropium [place] Monohydrate) Inhale by mouth 2 Puffs in the morning. 4 g 3 04/25/20 22 Active Estradiol 0.1 MG/GM Vaginal Cream Administer into the vagina 1 g in the morning. 42.5 g 12 05/07/20 22 Active Diclofenac Sodium 1 % External Gel (Voltaren) Apply topically to affected area 2 times a day. 150 g 3 06/05/20 22 Active Vitamin D (Ergocalciferol) 1.25 MG (65229 UT) Oral Capsule (Drisdol)Indicatio ns:Vitamin D deficiency [...] Tablet 1 12/20/19 23 Active UltiCare Pen [place] 31G X 5 MM (Insulin Pen Needle) use TWICE DAILY 200 Each 3 12/24/19 23 Active Torsemide 20 MG Oral Tablet (Demadex)Indicatio ns:Atherosclerotic heart disease of [place] coronary artery with other forms of angina [...] 180 Tablet 3 01/17/20 23 Active Nystatin 568996 UNIT/GM External Powder (Nystop)Indication s:Candidal intertrigo Apply [...] 300 Strip 3 01/17/20 23 Active Nystatin 022604 UNIT/ML Mouth/Throat Suspension SWISH AND SWALLOW 5ML [...] mg daily Atherosclerotic heart diseas e of [place] coronary artery with other forms of angina pectoris 11/15/2021 Last Assessment & Plan: Stable. No angina -continue toprol, ASA and statin Seasonal allergies 11/15/2021 Recurrent UTI 10/07/2021 Last Assessment & Plan: Followed by urology Pt is supposed to be on methenamine--will need to clarify with dgt that she is giving this. 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 Anxiety 08/05/2017 Tliavwb-Wzbcp-Kulbo disease 06/27/2015 Last Assessment & Plan: Frequent [...] 05/06/2018 019 Atherosclerotic heart diseas e of [place] coronary artery with other forms of angina [...] coronary syndrome 10/30/2010 01/22/20 14 [facility] Research Other*[id number] 02/02/2010 04/18/2014 Overview: [place] [facility], Dr Joel CASAS Obesity, morbid (more [...] thrombosis 06/17/2006 01/21/2014 long-term current use of anticoagulant therapy 1 08/18/2005 [...] encounter Miscellaneous Notes * Telephone Encounter - Brian Domínguez MD - 02/13/2023 4:28 PM EDTSigned Prescriptions: Disp Refills Oxybutynin Chloride ER 10 MG Oral Tablet E*90 Tab*0 Sig: TAKE 1 TABLET BY MOUTH EVERY MORNINGAuthorizing Provider: BHAVANI BERNARD * Telephone Encounter - Liz Lazcano LPN [...] goal below 130/80 I10 MEDICATION USE AGREEMENT [id number] Qjtiamm-Dhqkx-Esdgp disease G60.0 Anxiety F41.9 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, T40.601A Hypertensive heart disease with chronic diastolic congestive heart failure ([facility]) I11.0, I50.32 Fatty liver K76.0 Chronic liver disease and cirrhosis ([facility]) K74.60, K76.9 Portal hypertensive gastropathy ([facility]) K76.6, K31.89 Moderate aortic stenosis I35.0 Type 2 diabetes mellitus with diabetic neuropathy ([facility]) E11.40 Diabetic gastroparesis (HCC) E11.43, K31.84 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 ([facility]) Z79.4 Pelvic pain R10.2 Urge incontinence N39.41 Type 2 diabetes mellitus with diabetic neuropathy, with long-term current use of insulin ([facility]) E11.40, Z79.4 Type 2 diabetes mellitus with stage 3a chronic kidney disease, with long- term current use of insulin ([facility]) E11.22, N18.31, Z79.4 Recurrent UTI N39.0 Atherosclerotic heart disease of [place] coronary artery with other forms of angina pectoris ([facility]) I25.118 Seasonal allergies J30.2 Hypertensive heart and kidney disease with chronic diastolic congestive heart failure and aqibs8x chronic kidney disease ([facility]) I13.0, I50.32, N18.31 Medical home patient encounter [...] (minutes): 5 * Telephone Encounter - [facility] - 02/13/2023 6:55 AM EDTPending Prescriptions: Disp Refills Oxybutynin Chloride ER 10 MG Oral Tablet E*90 Tab*0 Sig: TAKE 1TABLET BY MOUTH EVERY MORNING documented in this encounter Plan of Treatment Upcoming Encounters Date Type Specialty Care Team Description 02/17/2023 Pharmacy Pharmacy [facility] [address], [place] [phone] 02/19/2023 Office Visit Gynecology Urology Nir Landa MD [address] [place] [address] Nurse Yury Fox [address] [place] [address] 03/03/2023 Telemedicine [facility] Lashay Blevins PA-C [address] [place] [address] [address] [place] [address] 04/09/2023 Office Visit Urology Alfredo Panda MD [address] [place] [address] 04/23/2023 Office Visit Infectious Disease Kendall Bell, DO [address] [place] [address] 04/28/2023 Office Visit Family Medicine Brian Domínguez MD [address] [place] [address] 05/05/2023 Office Visit Cardiology Sobia Brewster PAAttilaC [address] [place] [address] 05/09/2023 Office Visit Gastroenterology Wendy Frias, DO [address] [place] [address] Scheduled Procedures Name Priority Associated Diagnoses Date/Ti [...] 11/01/2021, Additional history exists GFR 08/14/2023 02/11/2023, 10/2022, 12/05/2022, Additional history exists Albumin/Creatinine Ratio 10/24/2023 023, 07/17/2022, 10/05/2020, Additional history exists CKD PHOS USE SMARTSET 78857 10/24/202310/05, 02/18/2022, 02/17/2022, Additional history exists CKD HGB USE SMARTSET 03200 02/12/202402/11, 02/07/2023, 11/21/2022, Additional history exists TSH 02/14/2024 02/13/2023, 10/05, 02/28/2022, Additional history exists Colonoscopy 05/20/2024 05/20/2014 Colorectal [...] this encounter Medical Devices Implanted Type Area Music Pastor Device Identifier Shelf Expiration Date Model / Serial / Lot Sut Steel 6 [id number] - [id number] Implanted:Qty: 1 on 02/15/2011 at OR [facility] N/A: Chest DO NOT USE 07/21/2015 [id number] / / [id number] documented as of this encounter Advance Directives Documents on File Type Date Recorded 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 No Code Status History Code Status Date [...] the patient have Health Care Power of Live In Companion? No Full Code 02/01/2010 4:02 PM 02/02/2010 4:09 PM This order reflects the patients wishes and were consensually agreed upon. Question Answer Comments Discussion of Advance Directives occurred with: Not Discussed Does the patient have a Living Will? No Does the patient have Health Care Power of Live In Companion? No Healthcare Agents on File Name Relationship Healthcare Agent [facility] Communication Carolyn Ballard Adult Child Health Care Agent Care Teams Senior Manager Asset Protection Relationship Specialty Start Date End Date Brian Domínguez MD [address] [place] [address] PCP - General Family Medicine 07/16/17 documented as of this encounter
--- OUTSIDE RECORDS SUMMARY | 2023-05-17 12:13 | External Medical Summary ---
Author Name Unknown Address Unknown Organization K09:[facility] [place] [address] Laboratory Report Ordering Provider Test Date Status ANTHONY SANDERSON 02/18/2023 05:40:00 Final Observation Date Value Abnormality Reference (Units ) Status WBC, Total 02/18/2023 05:40:00 5.72 4.00-10.8 0 (K/uL) Final RBC 02/18/2023 05:40:00 3.98 3.85-5.15 (M/uL) Final Hemoglobin 02/18/2023 05:40:00 10.9 Below low normal 12 .0-15.3 (g/dL) Final HCT 02/18/2023 05:40:00 34.0 Below low normal 36. 0-45.2 (%) Final MCV 02/18/2023 05:40:00 85.4 81.5-97.5 (fL) Final MCH 02/18/2023 05:40:00 27.4 27.0-34.0 (pg) Final MCHC 02/18/2023 05:40:00 32.1 32.0-36.0 (g/dL) Final RDW 02/18/2023 05:40:00 19.4 11.5-15.5 (%) Final Platelets 02/18/2023 05:40:00 178 140-400 (K /uL) Final MPV 02/18/2023 05:40:00 10.5 6.6-11.1 ( fL) Final Performing Location [facility] [place] [address]
--- OUTSIDE RECORDS SUMMARY | 2023-05-17 12:13 | External Medical Summary | Summary of Care ---
Author Name Unknown Organization [facility] Address [address] [place] [address] Phone [phone] Care Team Providers Care Director Of Occupational Health Name Role Phone Brian Domínguez MD Primary Care Provider +1- [phone] Reason for Visit * Reason Onset Date Comments case management 02/21/2023 [facility] Encounter Details Date Type Department Care Team Description 02/21/2023 Operator/Assistant Foreman Telephone [address] [address] Siri Amaro, RN [address] [place] [address] case management ([facility]) Allergies Active Allergy Reactions Severity Noted Date Comments Propoxyphene Hcl Rash Low 10/29/2010 Fentanyl Diarrhea Low 04/26/2010 anxiety Methocarbamol Medium 10/05/2020 Other reaction(s): Delirium Methocarbamol Low 04/15/2007 Zolpidem Low 10/05/2020 Other reaction(s): Confusion documented as of this encounter (statuses as of 02/21/2023) Medications Medication Sig Dispensed Refills Start Date End Date Status ARIPiprazole (ABILIFY) 2 MG Tablet Take 1 Tablet by mouth in the morning. 0 2015 Active venlafaxine XR (EFFEXOR XR) 150 MG GL04Skwqsoenywl:Dep ression Take 1 Cap by mouth daily. [...] 0 11/18/2017 Active Blood Glucose Monitoring Suppl ([place]) w/Device KIT Use as directed. Use as directed. 1 Kit 0 10/31/2018 Active Spacer/Aero-Holding Chambers WISAM Use with inhaler. Wheezing/bronchitis . 1 Device 0 04/08/2019 Active Cabe na Malauch DelSkout Lancets 33G MISC USE UP TO FOUR TIMES A DAY Dx:E11.4 100 Each 5 09/30/2019 Active Lancet Devices (iWitnessTOUCH [place]ICA LANCING DEV) MISC Use four times [...] 06/05/2022 Active Vitamin D (Ergocalciferol) 1.25 MG (46263 UT) Oral Capsule (Drisdol)Indication s:Vitamin D deficiency [...] 90 Tablet 1 12/19/2022 Active UltiCare Pen [place] 31G X 5 MM (Insulin Pen Needle) use TWICE DAILY 200 Each 3 12/23/2022 Active Torsemide 20 MG Oral Tablet (Demadex)Indication s:Atherosclerotic heart disease of [place] coronary artery with other forms of angina [...] bedtime 180 Tablet 3 01/16/2023 Active Nystatin 625153 UNIT/GM External Powder (Nystop)Indications :Candidal intertrigo Apply [...] daily 300 Strip 3 01/16/2023 Active Nystatin 704414 UNIT/ML Mouth/Throat Suspension SWISH AND SWALLOW 5ML [...] needed (pain). 60 Tablet 0 01/27/2023 Active Morphine Sulfate ER 15 MG Oral [...] as of this encounter (statuses as of 02/21/2023) Active Problems Problem Noted Date Medical home patient encounter 3 Hypertensive heart and kidne y disease with chronic diastolic congestive heart failure and stage 3a chronic kidney disease 12/28/2021 Last Assessment & Plan: Euvolemic, BP stable EF 55% 09/25 GFR 69 02/25 -Continue Torsemide 20 mg BID, Spironolactone 25 mg BID, Tropol XL 50 mg daily Atherosclerotic heart diseas e of [place] coronary artery with other forms of angina pectoris 11/15/2021 Last Assessment & Plan: Stable. No angina -continue toprol, ASA and statin Seasonal allergies 11/15/2021 Recurrent UTI 10/07/2021 Last Assessment & Plan: Followed by urology Pt is supposed to be on methenamine--will need to clarify with dgt that she is giving this. 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/2014 termite exterminator helper current use of anticoagulant therapy 1 08/18/2005 [...] as of this encounter (statuses as of 02/21/2023) Immunizations Name Administration Dates Next Due COVID-19 [...] encounter Miscellaneous Notes * Telephone Encounter - Siri Amaro RN - 02/21/2023 1:52 PM EDT Attempted to contact patient for initial ANIL assessment. No answer. Left message requesting call back. UTC. Follow-up Post Discharge Attempted Phone Call First Attempt Call Outcome Left Voicemail/Message Plan To attempt another outreach Attempted to contact patient's daughter, Carolyn. No answer. Left message requesting call back. UTC. documented in this encounter Plan of Treatment Upcoming Encounters Date Type Specialty Care Team Description 02/24/2023 Office Visit Family Medicine Kirby Trent MD [address] [place] [address] 03/03/2023 Telemedicine [facility] Lashay Blevins PA-C [address] [place], [place] [phone] Beverly Lozoya, [address] [place] [phone] 04/09/2023 Office Visit Urology Alfredo Panda MD [address] [address] 04/23/2023 Office Visit Infectious Disease Kendall Bell, DO [address] [place], [place] [phone] 04/28/2023 Office Visit Family Medicine Brian Domínguez MD [address] [place] [address] 05/05/2023 Office Visit Cardiology Sobia Brewster PAArleen [address] [place] [address] 05/09/2023 Office Visit Gastroenterology Wendy Frias DO [address] [place] [address] Scheduled Procedures Name Priority Associated Diagnoses Date/Ti [...] Additional history exists CKD PHOS USE SMARTSET 20815 10/24/202310/05, 02/18/2022, 02/17/2022, Additional history exists TSH 02/14/2024 02/13/2023, 10/05, 02/28/2022, Additional history exists CKD HGB USE SMARTSET 00169 02/19/202402/18, 02/11/2023, 02/07/2023, Additional history exists Colonoscopy [...] this encounter Medical Devices Implanted Type Area Secretary Office Clerk Device Identifier Shelf Expiration Date Model / Serial / Lot Sut Steel 6 [id number] - [id number] Implanted:Qty: 1 on 02/15/2011 at OR [facility] N/A: Chest DO NOT USE 07/21/2015 [id number] / / [id number] documented as of this encounter Advance Directives Documents on File Type Date Recorded Patient Copy Center Specialist 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 Question Answer Comments Discussion of Advance Directives occurred with: Patient Does the patient have a Living Will? No Does the patient have Health Care Power of Electrician Deck? No Code Status History Code Status Date [...] the patient have Health Care Power of Electrician Deck? No Full Code 02/01/2010 4:02 PM 02/02/2010 4:09 PM This order reflects the patients wishes and were consensually agreed upon. Question Answer Comments Discussion of Advance Directives occurred with: Not Discussed Does the patient have a Living Will? No Does the patient have Health Care Power of Electrician Deck? No Healthcare Agents on File Name Relationship Healthcare Agent [facility] p Communication Carolyn Ballard Adult Child Health Care Agent Care Teams Director Of Occupational Health Relationship Specialty Start Date End Date Brian Domínguez MD [address] [facility] [place] [address] PCP - General Family Medicine 07/16/17 documented as of this encounter
--- OUTSIDE RECORDS SUMMARY | 2023-05-17 12:13 | External Medical Summary | Summary of Care ---
Author Name Unknown Organization [facility] Address [address] [place] [address] Phone [phone] Care Team Providers Care Fitness Supervisor Name Role Phone Brian Domínguez MD Primary Care Provider +1- [phone] Reason for Visit * Reason Comments Appointment No Show Encounter Details Date Type Department Care Team Description 02/17/2023 Pharmacy Pharmacy, [place] [address] [place] [address] [facility] [address] [place] [address] Type 2 diabetes mellitus with stage 3a chronic kidney disease, with long-term current use of insulin ([facility])* Allergies Active Allergy Reactions Severity Noted Date Comments Propoxyphene Hcl Rash Low 10/29/2010 Fentanyl Diarrhea Low 04/26/2010 anxiety Methocarbamol Medium 10/05/2020 Other reaction(s): Delirium Methocarbamol Low 04/15/2007 Zolpidem Low 10/05/2020 Other reaction(s): Confusion documented as of this encounter (statuses as of 02/17/2023) Medications Medication Sig Dispensed Refills Start Date End Date Status ARIPiprazole (ABILIFY) 2 MG Tablet Take 1 Tablet by mouth in the morning. 0 2015 Active venlafaxine XR (EFFEXOR XR) 150 MG NC18Euuymowdqsg:Dep ression Take 1 Cap by mouth daily. [...] 0 11/18/2017 Active Blood Glucose Monitoring Suppl (Rubicon Project VERIO) w/Device KIT Use as directed. Use as directed. 1 Kit 0 10/31/2018 Active Spacer/Aero-Holding Chambers WISAM Use with inhaler. Wheezing/bronchitis . 1 Device 0 04/08/2019 Active CIVICO DelBlogHer Lancets 33G MISC USE UP TO FOUR TIMES A DAY Dx:E11.4 100 Each 5 09/30/2019 Active Lancet Devices (Surgery AcademyUCH DELICA LANCING DEV) MISC Use four times [...] 2.5 MCG/ACT Inhalation Aerosol Solution (Tiotropium [place] Monohydrate) Inhale by mouth 2 Puffs in the morning. 4 g 3 04/25/2022 Active Estradiol 0.1 MG/GM Vaginal Cream Administer into the vagina 1 g in the morning. 42.5 g 12 05/07/2022 Active Diclofenac Sodium 1 % External Gel (Voltaren) Apply topically to affected area 2 times a day. 150 g 3 06/05/2022 Active Vitamin D (Ergocalciferol) 1.25 MG (24165 UT) Oral Capsule (Drisdol)Indication s:Vitamin D deficiency [...] 90 Tablet 1 12/19/2022 Active UltiCare Pen [place] 31G X 5 MM (Insulin Pen Needle) use TWICE DAILY 200 Each 3 12/23/2022 Active Torsemide 20 MG Oral Tablet (Demadex)Indication s:Atherosclerotic heart disease of [place] coronary artery with other forms of angina [...] bedtime 180 Tablet 3 01/16/2023 Active Nystatin 494980 UNIT/GM External Powder (Nystop)Indications :Candidal intertrigo Apply [...] daily 300 Strip 3 01/16/2023 Active Nystatin 573237 UNIT/ML Mouth/Throat Suspension SWISH AND SWALLOW 5ML [...] as of this encounter (statuses as of 02/17/2023) Active Problems Problem Noted Date Medical home patient encounter 3 Hypertensive heart and kidne y disease with chronic diastolic congestive heart failure and stage 3a chronic kidney disease 12/28/2021 Last Assessment & Plan: Euvolemic, BP stable EF 55% 09/25 GFR 69 02/25 -Continue Torsemide 20 mg BID, Spironolactone 25 mg BID, Tropol XL 50 mg daily Atherosclerotic heart diseas e of [place] coronary artery with other forms of angina pectoris 11/15/2021 Last Assessment & Plan: Stable. No angina -continue toprol, ASA and statin Seasonal allergies 11/15/2021 Recurrent UTI 10/07/2021 Last Assessment & Plan: Followed by urology Pt is supposed to be on methenamine--will need to clarify with dgt that she is giving this. 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 Anxiety 08/05/2017 Dndzuqj-Xxooc-Suzbs disease 06/27/2015 Last Assessment & Plan: Frequent [...] as of this encounter (statuses as of 02/17/2023) Resolved Problems Problem Noted Date Resolved Date [...] 05/06/2018 019 Atherosclerotic heart diseas e of [place] coronary artery with other forms of angina [...] 10/31/201008/08 Acute coronary syndrome 10/30/2010 01/22/20 14 TERRELL Research Other*[id number] 02/02/2010 04/18/2014 Overview: Karen Registry, Dr Joel [...] 06/17/2006 01/21/2014 intermediate manager current use of anticoagulant therapy 1 08/18/2005 [...] as of this encounter (statuses as of 02/17/2023) Immunizations Name Administration Dates Next Due COVID-19 [...] as of this encounter Progress Notes * Wendy Us, retail sales specialist - 02/17/2023 8:25 AM EDT Patient Phone Numbers Spoke with patient to r/s missed DM appointment. Patient is currently in a rehab facility. When sheis back home, she will call back to r/s at that time. Discharged at this time at her request, luisa quezada not continue to call her to r/s while she is still in rehab. Patient has MTDM phone number. Thank you, Wendy Us Appraiser [employer] [facility] 02/17/2023,8:25 AM documented in this encounter Plan of Treatment Upcoming Encounters Date Type Specialty Care Team Description 02/19/2023 Office Visit Gynecology Urology Nir Landa MD [address] [place] [address] Nurse Yury Fox [address] [place] [address] 03/03/2023 Telemedicine [facility] Lashay Blevins PA-C [address] [place] [address] [address] [place] [address] 04/09/2023 Office Visit Urology Alfredo Panda MD [address] [place], [place] [phone] 04/23/2023 Office Visit Infectious Disease Kendall Bell, DO [address] [place] [address] 04/28/2023 Office Visit Family Medicine Brian Domínguez MD [address] [place] [address] 05/05/2023 Office Visit Cardiology Sobia Brewster PA-C [address] [place] [address] 05/09/2023 Office Visit Gastroenterology Suvock, Wendy T, DO [address] [place] [address] Scheduled Procedures Name Priority Associated Diagnoses Date/Ti [...] Additional history exists CKD PHOS USE SMARTSET 17514 10/24/202310/05, 02/18/2022, 02/17/2022, Additional history exists CKD HGB USE SMARTSET 19384 02/12/202402/11, 02/07/2023, 11/21/2022, Additional history exists TSH [...] this encounter Medical Devices Implanted Type Area Test Driver Device Identifier Shelf Expiration Date Model / Serial / Lot Jenna Rojas 6 [id number] - [id number] Implanted:Qty: 1 on 02/15/2011 at OR [facility] [place] N/A: Chest DO NOT USE 07/21/2015 [id number] / / [id number] documented as of this encounter Visit Diagnoses Diagnosis Type 2 diabetes mellitus with stage 3a chronic kidney disease, with long-term current use of insulin (HCC)- Primary documented in this encounter Advance Directives Documents on File Type Date Recorded Patient Mucking Machine Operator Expl cheyanneion 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 Question Answer Comments Discussion of Advance Directives occurred with: Patient Does the patient have a Living Will? No Does the patient have Health Care Power of Political Organizer? No Code Status History Code Status Date [...] the patient have Health Care Power of Political Organizer? No Full Code 02/01/2010 4:02 PM 02/02/2010 4:09 PM This order reflects the patients wishes and were consensually agreed upon. Question Answer Comments Discussion of Advance Directives occurred with: Not Discussed Does the patient have a Living Will? No Does the patient have Health Care Power of Political Organizer? No Healthcare Agents on File Name Relationship Healthcare Agent [facility] Communication Carolyn Ballard Adult Child Health Care Agent Care Teams Fitness Supervisor Relationship Specialty Start Date End Date Brian Domínguez MD [address] [place], [place] [phone] PCP - General Family Medicine 07/16/17 documented as of this encounter
--- OUTSIDE RECORDS SUMMARY | 2023-05-17 12:13 | External Medical Summary | Summary of Care ---
Author Name Unknown Organization [facility] Address [address] [place] [address] Phone [phone] Care Team Providers Care Communications Representative Name Role Phone Brian Domínguez MD Primary Care Provider +1- [phone] Reason for Visit * Reason Onset Date Comments Advice 02/19/2023 Encounter Details Date Type Department Care Team Description 02/19/[address] [facility] [address] [place] [address] Brian Domínguez MD [address] [place] [address] Advice Allergies Active Allergy Reactions Severity Noted Date Comments Propoxyphene Hcl Rash Low 10/29/2010 Fentanyl Diarrhea Low 04/26/2010 anxiety Methocarbamol Medium 10/05/2020 Other reaction(s): Delirium Methocarbamol Low 04/15/2007 Zolpidem Low 10/05/2020 Other reaction(s): Confusion documented as of this encounter (statuses as of 02/19/2023) Medications Medication Sig Dispensed Refills Start Date End Date Status ARIPiprazole (ABILIFY) 2 MG Tablet Take 1 Tablet by mouth in the morning. 0 2015 Active venlafaxine XR (EFFEXOR XR) 150 MG [id number]:Dep ression Take 1 Cap by mouth daily. With food. 30 Cap 5 09/02/2016 Active Additional Information Patient taking differently: 225 mgOral Daily(AM), With food.,Indications: Takes 225 mg total every morning with food (150 mg tab + 75 mg tab), Reported on 06/24/2022 Blood Glucose Monitoring Suppl (D-Knoa Software GLUCOMETER) w/Device KITIndications:Unco ntrolled type 2 diabetes mellitus without complication, without long-term current use of insulin Use as directed. Use as directed once daily 1 Kit 0 11/18/2017 Active Blood Glucose Monitoring Suppl (FamilyticIO) w/Device KIT Use as directed. Use as directed. 1 Kit 0 10/31/2018 Active Spacer/Aero-Holding Chambers WISAM Use with inhaler. Wheezing/bronchitis . 1 Device 0 04/08/2019 Active Vdopia DelKey Ingredient Corporation Lancets 33G MISC USE UP TO FOUR TIMES A DAY Dx:E11.4 100 Each 5 09/30/2019 Active Lancet Devices (OfferamaUCH DELICA LANCING DEV) MISC Use four times [...] Respimat 2.5 MCG/ACT Inhalation Aerosol Solution (Tiotropium [place] Monohydrate) Inhale by mouth 2 Puffs in the morning. 4 g 3 04/25/2022 Active Estradiol 0.1 MG/GM Vaginal Cream Administer into the vagina 1 g in the morning. 42.5 g 12 05/07/2022 Active Diclofenac Sodium 1 % External Gel (Voltaren) Apply topically to affected area 2 times a day. 150 g 3 06/05/2022 Active Vitamin D (Ergocalciferol) 1.25 MG (29159 UT) Oral Capsule (Drisdol)Indication s:Vitamin D deficiency [...] 90 Tablet 1 12/19/2022 Active UltiCare Pen [place] 31G X 5 MM (Insulin Pen Needle) use TWICE DAILY 200 Each 3 12/23/2022 Active Torsemide 20 MG Oral Tablet (Demadex)Indication s:Atherosclerotic heart disease of [place] coronary artery with other forms of angina [...] bedtime 180 Tablet 3 01/16/2023 Active Nystatin 421208 UNIT/GM External Powder (Nystop)Indications :Candidal intertrigo Apply [...] daily 300 Strip 3 01/16/2023 Active Nystatin 249044 UNIT/ML Mouth/Throat Suspension SWISH AND SWALLOW 5ML IN THE MORNING AND 5ML AT NOON AND 5 ML IN THE EVENING AND 5ML BEFORE BEDTIME, FOR THRUSH 240 mL 01/28/2023 Active Potassium Chloride Mag ER 20 [...] as of this encounter (statuses as of 02/19/2023) Active Problems Problem Noted Date Medical home patient encounter 3 Hypertensive heart and kidne y disease with chronic diastolic congestive heart failure and stage 3a chronic kidney disease 12/28/2021 Last Assessment & Plan: Euvolemic, BP stable EF 55% 09/25 GFR 69 02/25 -Continue Torsemide 20 mg BID, Spironolactone 25 mg BID, Tropol XL 50 mg daily Atherosclerotic heart diseas e of [place] coronary artery with other forms of angina pectoris 11/15/2021 Last Assessment & Plan: Stable. No angina -continue toprol, ASA and statin Seasonal allergies 11/15/2021 Recurrent UTI 10/07/2021 Last Assessment & Plan: Followed by urology Pt is supposed to be on methenamine--will need to clarify with dgt that she is giving this. 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 02/19/2023 * Telephone Encounter - DENG Wilks - 02/19/2023 11:34 AM EDT No Appointments Available Patient declined appointments?: No What Visit Type is needed? Hospital Discharge If Acute Visit Type is needed, were surrounding clinics offered to patient (Yes/No)? N/A Was patient offered appointments with other available providers (Yes/No)? N/A See Call Details? (Yes or No): No documented in this encounter Plan of Treatment Upcoming Encounters Date Type Specialty Care Team Description 02/24/2023 Office Visit Family Medicine Kirby Trent MD [address] [place] [address] 03/03/2023 Telemedicine [facility] Lashay Blevins PA-C [address] [place] [address] [address] [place] [phone] 04/09/2023 Office Visit Urology Alfredo Panda MD [address] [address] 04/23/2023 Office Visit Infectious Disease Kendall Bell, DO [address] [place] [address] 04/28/2023 Office Visit Family Medicine Brian Domínguez MD [address] [place] [address] 05/05/2023 Office Visit Cardiology Sobia Brewster PAArleen [address] [place] [address] 05/09/2023 Office Visit Gastroenterology Wendy Frias DO [address] [place] [address] Scheduled Procedures Name Priority Associated Diagnoses Date/Ti [...] Additional history exists CKD PHOS USE SMARTSET 31066 10/24/202310/05, 02/18/2022, 02/17/2022, Additional history exists TSH 02/14/2024 02/13/2023, 10/05, 02/28/2022, Additional history exists CKD HGB USE SMARTSET 93242 02/19/202402/18, 02/11/2023, 02/07/2023, Additional history exists Colonoscopy [...] this encounter Medical Devices Implanted Type Area Biomedical Equipment Support Specialist Device Identifier Shelf Expiration Date Model / Serial / Lot Sut Steel 6 [id number] - [id number] Implanted:Qty: 1 on 02/15/2011 at [place] [facility] [place]/A: Chest DO NOT USE 07/21/2015 [id number] / / [id number] documented as of this encounter Advance Directives Documents on File Type Date Recorded Patient Electrical Installation Inspector Expl anation POL 05/06/2018 POLST Latest [...] the patient have Health Care Power of Seed Service Advisor? No Code Status History Code Status Date [...] the patient have Health Care Power of Seed Service Advisor? No Full Code 02/01/2010 4:02 PM 02/02/2010 4:09 PM This order reflects the patients wishes and were consensually agreed upon. Question Answer Comments Discussion of Advance Directives occurred with: Not Discussed Does the patient have a Living Will? No Does the patient have Health Care Power of Seed Service Advisor? No Healthcare Agents on File Name Relationship Healthcare Agent [facility] p Communication Carolyn Ballard Adult Child Health Care Agent Care Teams Communications Representative Relationship Specialty Start Date End Date Brian Domínguez MD [address] [place] [address] PCP - General Family Medicine 07/16/17 documented as of this encounter
--- OUTSIDE RECORDS SUMMARY | 2023-05-17 12:13 | External Medical Summary | Summary of Care ---
Author Name Unknown Organization [facility] Address [address] [place] [address] Phone [phone] Care Team Providers Care Line Service Person Name Role Phone Brian Domínguez MD Primary Care Provider +1- [phone] Reason for Visit * Reason Onset Date Comments Appointment 02/20/2023 Encounter Details Date Type Department Care Team Description 02/20/2023 Telephone [facility] [place] [address] [place] [address] Lashay Blevins PA-C [address] [place] [address] Appointment (/) Allergies Active Allergy Reactions Severity Noted Date Comments Propoxyphene Hcl Rash Low 10/29/2010 Fentanyl Diarrhea Low 04/26/2010 anxiety Methocarbamol Medium 10/05/2020 Other reaction(s): Delirium Methocarbamol Low 04/15/2007 Zolpidem Low 10/05/2020 Other reaction(s): Confusion documented as of this encounter (statuses as of 02/20/2023) Medications Medication Sig Dispensed Refills Start Date End Date Status ARIPiprazole (ABILIFY) 2 MG Tablet Take 1 Tablet by mouth in the morning. 0 2015 Active venlafaxine XR (EFFEXOR XR) 150 MG TO67Qnubzulslpw:Dep ression Take 1 Cap by mouth daily. [...] 0 11/18/2017 Active Blood Glucose Monitoring Suppl (Senor Sirl[employer] VERIO) w/Device KIT Use as directed. Use as directed. 1 Kit 0 10/31/2018 Active Spacer/Aero-Holding Chambers WISAM Use with inhaler. Wheezing/bronchitis . 1 Device 0 04/08/2019 Active Beyond Commerceuch DelImmune Pharm[employer] Lancets 33G MISC USE UP TO FOUR TIMES A DAY Dx:E11.4 100 Each 5 09/30/2019 Active Lancet Devices (QURIUM SolutionsTOUCH DELICA LANCING DEV) MISC Use four [...] Respimat 2.5 MCG/ACT Inhalation Aerosol Solution (Tiotropium [place] Monohydrate) Inhale by mouth 2 Puffs in the morning. 4 g 3 04/25/2022 Active Estradiol 0.1 MG/GM Vaginal Cream Administer into the vagina 1 g in the morning. 42.5 g 12 05/07/2022 Active Diclofenac Sodium 1 % External Gel (Voltaren) Apply topically to affected area 2 times a day. 150 g 3 06/05/2022 Active Vitamin D (Ergocalciferol) 1.25 MG (55403 UT) Oral Capsule (Drisdol)Indication s:Vitamin D deficiency [...] 90 Tablet 1 12/19/2022 Active UltiCare Pen [place] 31G X 5 MM (Insulin Pen Needle) use TWICE DAILY 200 Each 3 12/23/2022 Active Torsemide 20 MG Oral Tablet (Demadex)Indication s:Atherosclerotic heart disease of [place] coronary artery with other forms of angina [...] bedtime 180 Tablet 3 01/16/2023 Active Nystatin 372955 UNIT/GM External Powder (Nystop)Indications :Candidal intertrigo Apply [...] daily 300 Strip 3 01/16/2023 Active Nystatin 308106 UNIT/ML Mouth/Throat Suspension SWISH AND SWALLOW 5ML [...] as of this encounter (statuses as of 02/20/2023) Active Problems Problem Noted Date Medical home patient encounter 3 Hypertensive heart and kidne y disease with chronic diastolic congestive heart failure and stage 3a chronic kidney disease 12/28/2021 Last Assessment & Plan: Euvolemic, BP stable EF 55% 09/25 GFR 69 02/25 -Continue Torsemide 20 mg BID, Spironolactone 25 mg BID, Tropol XL 50 mg daily Atherosclerotic heart diseas e of [place] coronary artery with other forms of angina pectoris 11/15/2021 Last Assessment & Plan: Stable. No angina -continue toprol, ASA and statin Seasonal allergies 11/15/2021 Recurrent UTI 10/07/2021 Last Assessment & Plan: Followed by urology Pt is supposed to be on methenamine--will need to clarify with dgt that she is giving this. 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 Anxiety 08/05/2017 Tzjsmqv-Hpufm-Gvkxa disease 06/27/2015 Last Assessment & Plan: Frequent [...] as of this encounter (statuses as of 02/20/2023) Resolved Problems Problem Noted Date Resolved Date [...] 019 Atherosclerotic heart diseas e of [place] coronary artery with other forms of angina [...] 10/31/201008/08 Acute coronary syndrome 10/30/2010 01/22/20 14 [place] Research Other*[id number] 02/02/2010 04/18/2014 Overview: Karen Registry, Dr Joel [...] as of this encounter (statuses as of 02/20/2023) Immunizations Name Administration Dates Next Due COVID-19 [...] * Telephone Encounter - DENG Cruz - 02/20/2023 11:43 AM EDT Call to daughtereliot to confirm return kawi telemed for 03/03 at 3pm, daughter agreeable documented in this encounter Plan of Treatment Upcoming Encounters Date Type Specialty Care Team Description 02/24/2023 Office Visit Family Medicine Kirby Trent MD [address] [place] [address] 03/03/2023 Telemedicine [facility] Lashay Blevins PA-C [address] [place], [place] [phone] Beverly Lozoya, [address] [place] [address] 04/09/2023 Office Visit Urology Alfredo Panda MD [address] [place], [place] [phone] 04/23/2023 Office Visit Infectious Disease Kendall Bell, DO [address] [place], [place] [address] 04/28/2023 Office Visit Family Medicine Brian Domínguez MD [address] [place] [address] 05/05/2023 Office Visit Cardiology Sobia Brewster PA-C [address] [place] [address] 05/09/2023 Office Visit Gastroenterology Wendy Frias, DO [address] [place] [address] Scheduled Procedures Name Priority Associated Diagnoses Date/Ti [...] Additional history exists CKD PHOS USE SMARTSET 90792 10/24/202310/05, 02/18/2022, 02/17/2022, Additional history exists TSH 02/14/2024 02/13/2023, 10/05, 02/28/2022, Additional history exists CKD HGB USE SMARTSET 82857 02/19/202402/18, 02/11/2023, 02/07/2023, Additional history exists Colonoscopy [...] this encounter Medical Devices Implanted Type Area Bath Design Sales Consultant Device Identifier Shelf Expiration Date Model / Serial / Lot Jenna Rojas 6 M654g - [id number] Implanted:Qty: 1 on 02[place]2011 [place] [facility] [place]: Chest DO NOT USE 07/21/2015 [id number] / / [id number] documented as of this encounter Advance Directives Documents on File Type Date Recorded Patient Condenser Tester 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 Question Answer Comments Discussion of Advance Directives occurred with: Patient Does the patient have a Living Will? No Does the patient have Health Care Power of Mail Clerk? No Code Status History Code Status [...] the patient have Health Care Power of Mail Clerk? No Full Code 02/01/2010 4:02 PM 02/02/2010 4:09 PM This order reflects the patients wishes and were consensually agreed upon. Question Answer Comments Discussion of Advance Directives occurred with: Not Discussed Does the patient have a Living Will? No Does the patient have Health Care Power of Mail Clerk? No Healthcare Agents on File Name Relationship [facility] Communication Eliot Ballard Adult Child Health Care Agent Care Teams Line Service Person Relationship Specialty Start Date End Date Brian Domínguez MD [address] [place] [address] PCP - General Family Medicine 07/16/17 documented as of this encounter
--- OUTSIDE RECORDS SUMMARY | 2023-05-17 12:13 | External Medical Summary ---
Author Name Unknown Address Unknown Organization K09:[facility] [place] [address] Laboratory Report Ordering Provider Test Date Status ANTHONY SANDERSON 02/18/2023 05:40:00 Final Observation Date Value Abnormality Reference (Units ) Status BUN 02/18/2023 05:40:00 13 6-20 (mg/dL) Final Creatinine 02/18/2023 05:40:00 0.9 0.5-1.0 (mg/dL) Final Glomerular filtration rate/1.73 sq M.predicted [Volume Rate/Area] in Serum, Plasma or Blood by Creatinine-based formula (CKD-EPI) 02/18/2023 05:40:00 71 >=60 (mL/min) Final eGFR is calculated based on the CKD-EPI 2020 equation SODIUM 02/18/2023 05:40:00 134 Below low normal 135 -146 (mmol/L) Final Potassium 02/18/2023 05:40:00 3.7 3.5-5.1 (m mol/L) Final Cl 02/18/2023 05:40:00 99 98-107 (mm ol/L) Final CO2 02/18/2023 05:40:00 25 22-32 (mmo l/L) Final Anion gap 02/18/2023 05:40:00 10 7-15 (mmol /L) Final Glucose 02/18/2023 05:40:00 158 Above high normal 70 -120 (mg/dL) Final Calcium 02/18/2023 05:40:00 9.0 8.4-10.2 ( mg/dL) Final Performing Location [facility] [place] [address]
--- OUTSIDE RECORDS SUMMARY | 2023-05-17 12:13 | External Medical Summary | Summary of Care ---
Author Name Unknown Organization [facility] Address [address] [place] [address] Phone [phone] Care Team Providers Care Pitch Gatherer Name Role Phone Brian Domínguez MD Primary Care Provider [phone]- [phone] Reason for Visit * Reason Onset Date Comments Advice 02/19/2023 Encounter Details Date Type Department Care Team Description 02/19/2023 Telephone [facility] [address] [place] [address] Brian Domínguez MD [address] [place] [address] Advice Allergies Active Allergy Reactions [...] Active venlafaxine XR (EFFEXOR XR) 150 MG [id number]:Dep ression Take 1 Cap by mouth daily. With food. 30 Cap 5 09/02/2016 Active Additional Information Patient taking differently: 225 mgOral Daily(AM), With food.,Indications: Takes 225 mg total every morning with food (150 mg tab + 75 mg tab), Reported on 06/24/2022 Blood Glucose Monitoring Suppl (D-Get Smart Content GLUCOMETER) w/Device KITIndications:Unco ntrolled type 2 diabetes mellitus without complication, without long-term current use of insulin Use as directed. Use as directed once daily 1 Kit 0 11/18/2017 Active Blood Glucose Monitoring Suppl (HTG Molecular DiagnosticsIO) w/Device KIT Use as directed. Use as directed. 1 Kit 0 10/31/2018 Active Spacer/Aero-Holding Chambers WISAM Use with inhaler. Wheezing/bronchitis . 1 Device 0 04/08/2019 Active [employer] DelGTI Lancets 33G MISC USE UP TO FOUR TIMES A DAY Dx:E11.4 100 Each 5 09/30/2019 Active Lancet Devices (Samplify SystemsUCH DELICA LANCING DEV) MISC Use four [...] 06/05/2022 Active Vitamin D (Ergocalciferol) 1.25 MG (08037 UT) Oral Capsule (Drisdol)Indication s:Vitamin D deficiency [...] 90 Tablet 1 12/19/2022 Active UltiCare Pen Wayne 31G X 5 MM (Insulin Pen Needle) use TWICE DAILY 200 Each 3 12/23/2022 Active Torsemide 20 MG Oral Tablet (Demadex)Indication s:Atherosclerotic heart disease of jackson coronary artery with other forms of angina [...] bedtime 180 Tablet 3 01/16/2023 Active Nystatin 119735 UNIT/GM External Powder (Nystop)Indications :Candidal intertrigo Apply [...] daily 300 Strip 3 01/16/2023 Active Nystatin 884058 UNIT/ML Mouth/Throat Suspension SWISH AND SWALLOW 5ML [...] mg daily Atherosclerotic heart diseas e of jackson coronary artery with other forms of angina pectoris 11/15/2021 Last Assessment & Plan: Stable. No angina -continue toprol, ASA and statin Seasonal allergies 11/15/2021 Recurrent UTI 10/07/2021 Last Assessment & Plan: Followed by urology Pt is supposed to be on methenamine--will need to clarify with dgt that she is giving this. 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 Anxiety 08/05/2017 Fvlmygu-Vzlnt-Wqtyq disease 06/27/2015 Last Assessment & Plan: Frequent [...] 05/06/2018 019 Atherosclerotic heart diseas e of jackson coronary artery with other forms of angina [...] 10/31/201008/08 Acute coronary syndrome 10/30/2010 01/22/20 14 [employer] Other*[id number] 02/02/2010 04/18/2014 Overview: Karen Registry, Dr Joel [...] Family Medicine Kirby Trent MD [address] [place] [address] 03/03/2023 Telemedicine [facility] Lashay Blevins PA-C [address] [place] [address] [address] [place] [id number] 04/09/2023 Office Visit Urology Alfredo Panda MD [address] [address] 04/23/2023 Office Visit Infectious Disease Kendall Bell, DO [address] [place] [address] 04/28/2023 Office Visit Family Medicine Brian Domínguez MD [address] [place] [address] 05/05/2023 Office Visit Cardiology Sobia Brewster PAArleen [address] [place] [address] 05/09/2023 Office Visit Gastroenterology Wendy Frias DO [address] [place] [address] Scheduled Procedures Name Priority Associated Diagnoses Date/Ti [...] Additional history exists CKD PHOS USE SMARTSET 98850 10/24/202310/05, 02/18/2022, 02/17/2022, Additional history exists TSH 02/14/2024 02/13/2023, 10/05, 02/28/2022, Additional history exists CKD HGB USE SMARTSET 23674 02/19/202402/18, 02/11/2023, 02/07/2023, Additional history exists Colonoscopy [...] this encounter Medical Devices Implanted Type Area Car Conditioner Device Identifier Shelf Expiration Date Model / Serial / Lot Sut Steel 6 [id number] - [id number] [place]ed:[place] 1 on [place] [facility] [place] Chest DO NOT USE 07/21/2015 [id number] / / [id number] documented as of this encounter Advance Directives Documents on File Type Date Recorded Patient Epic Director Expl anation POL 05/06/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 Question Answer Comments Discussion of Advance Directives occurred with: Patient Does the patient have a Living Will? No Does the patient have Health Care Power of Bandmill Operator? No Code Status History Code Status [...] the patient have Health Care Power of Bandmill Operator? No Full Code 02/01/2010 4:02 PM 02/02/2010 4:09 PM This order reflects the patients wishes and were consensually agreed upon. Question Answer Comments Discussion of Advance Directives occurred with: Not Discussed Does the patient have a Living Will? No Does the patient have Health Care Power of Bandmill Operator? No Healthcare Agents on File Name Relationship Healthcare Agent [facility] p Communication Carolyn Ballard Adult Child Health Care Agent Care Teams Pitch Gatherer Relationship Specialty Start Date End Date Brian Domínguez MD [address] [place] [address] PCP - General Family Medicine 07/16/17 documented as of this encounter
--- OUTSIDE RECORDS SUMMARY | 2023-05-17 12:13 | External Medical Summary | Summary of Care ---
Author Name Unknown Organization [facility] Address [address] [place] [address] Phone [phone] Care Team Providers Care Wire Fence Builder Name Role Phone Brian Domínguez MD Primary Care Provider +1- [phone] Reason for Referral * Evaluate & Treat - Unlimited Visits (Within 10 days (routine)) - Authorized Specialty Diagnoses / Procedures Referred By Contac t Referred To Contact Wound Care Diagnoses Pressure injury of skin of left heel, unspecified injury stage Kirby Trent MD [address] [place] [address] Referral ID Status Reason Start Date Expiration Date Visits Requested Visits Authorized [id number] Authorized Specialty Services Required 02/24/2023 999 999 Question Answer Referral Priority Within 10 days (routine) Comments Assess for: Hx of wound healing problem. * Evaluate & Treat - Unlimited Visits (Within 10 days (routine)) - Authorized Specialty Diagnoses / Procedures Referred By Contmorena t Referred To Contact Audiology Diagnoses Presbycusis of both ears Kirby Trent MD [address] [place] [address] Referral ID Status Reason Start Date Expiration Date Visits Requested Visits Authorized [id number] Authorized Ancillary Services Required 02/24/2023 999 999 Question Answer Referral Priority Within 10 days (routine) Reason for Referral: Hearing Loss Is this sudden hearing loss? No Reason for Visit * Reason Comments Hospital Follow-Up Sore throat, cough, congestion x one week, pressure ulcer left heel Encounter Details Date Type Department Care Team Description 02/24/2023 Office Visit [facility] [address] [place] [facility] [place] [address] May, Kirby Luu MD [address] [place] [address] Hospital discharge follow-up*; Closed fracture of distal end of left femur, unspecified fracture morphology, sequela; Pressure injury of skin of left heel, unspecified injury stage; Presbycusis of both ears; Type 2 diabetes mellitus with diabetic neuropathy, with long-term current use of insulin ([facility]); HTN, goal below 130/80 Allergies Active Allergy Reactions Severity Noted Date [...] Active venlafaxine XR (EFFEXOR XR) 150 MG [id number]:Dep ression Take 1 Cap by mouth daily. [...] 0 11/18/2017 Active Blood Glucose Monitoring Suppl (5o9UCH VERIO) w/Device KIT Use as directed. Use [...] Respimat 2.5 MCG/ACT Inhalation Aerosol Solution (Tiotropium [place]awk Monohydrate) Inhale by mouth 2 Puffs in the morning. 4 g 3 04/25/2022 Active Estradiol 0.1 MG/GM Vaginal Cream Administer into the vagina 1 g in the morning. 42.5 g 12 05/07/2022 Active Diclofenac Sodium 1 % External Gel (Voltaren) Apply topically to affected area 2 times a day. 150 g 3 06/05/2022 Active Vitamin D (Ergocalciferol) 1.25 MG (29633 UT) Oral Capsule (Drisdol)Indication s:Vitamin D deficiency [...] times a day, as directed 18 g 11/07/2022 Active Pantoprazole Sodium 40 MG Oral [...] Active Xifaxan 550 MG Oral Tablet (rifAXIMin)Indicati ons:ESPANA (nonalcoholic steatohepatitis),Ch ronic liver disease and cirrhosis (HCC),Hepatic encephalopathy (HCC) TAKE 1 TABLET BY MOUTH TWICE DAILY 60 Tablet 5 12/16/2022 Active Montelukast Sodium 10 MG Oral Tablet (Singulair)Indicati ons:Nasal sinus congestion,PND (post-nasal drip) TAKE 1 TABLET BY MOUTH ONCE DAILY 90 Tablet 1 12/19/2022 Active UltiCare Pen Holden 31G X 5 MM (Insulin Pen Needle) use TWICE DAILY 200 Each 3 12/23/2022 Active Torsemide 20 MG Oral Tablet (Demadex)Indication s: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 MAY TAKE 1 ADDITIONAL TABLET NEEDED FOR SWELLING. 90 Tablet 1 12/24/2022 Active Spironolactone 50 MG Oral Tablet (Aldactone)Indicati ons:ESPANA (nonalcoholic steatohepatitis),Po rtal hypertension (HCC),Chronic liver disease and cirrhosis (HCC),Portal hypertensive gastropathy (HCC) Take 1 tablet by mouth in the morning and before bedtime 180 Tablet 3 01/16/2023 Active Nystatin 615185 UNIT/GM External Powder (Nystop)Indications :Candidal intertrigo Apply topically to affected area 3 times a day. Apply to right breast until rash resolved. 30 g 0 01/15/2023 Active Sucralfate 1 GM Oral Tablet (Carafate)Indicatio ns:Gastroesophageal reflux disease with esophagitis without hemorrhage TAKE 1 TABLET BY MOUTH EVERY MORNING 90 Tablet 0 01/17/2023 Active Additional Information Patient not taking.Reported on 02/24/2023 OneTouch Verio In Vitro Strip (Glucose Blood)Indications:T ype 2 diabetes mellitus with diabetic neuropathy, with long-term current use of insulin ([facility]) use to test blood sugar 3 times daily 300 Strip 3 01/16/2023 Active Nystatin 851828 UNIT/ML Mouth/Throat Suspension SWISH AND SWALLOW 5ML [...] mg daily 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 No angina -continue toprol, ASA and statin Seasonal allergies 11/15/2021 Recurrent UTI 10/07/2021 Last Assessment & Plan: Followed by urology Pt is supposed to be on methenamine--will need to clarify with dgt that she is giving this. 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 Anxiety 08/05/2017 Oqrwkai-Voqqc-Hhnvz disease 06/27/2015 Last Assessment & Plan: Frequent [...] to amp error PERONEAL MUSCLE ATROPHY 12/31/2002 ESPANA (nonalcoholic steatohepatitis) documented as of this encounter [...] 05/06/2018 019 Atherosclerotic heart diseas e of chenega coronary artery with other forms of angina [...] 10/31/201008/08 Acute coronary syndrome 10/30/2010 01/22/20 14 [place] Research Other*[id number] 02/02/2010 04/18/2014 Overview: Karen Registry, Dr Joel [...] thrombosis 06/17/2006 01/21/2014 USP current use of anticoagulant therapy 1 08/18/2005 [...] Reading Time Taken Comments Blood Pressure 110/58 02/24/2023 9:08 AM EDT Pulse 70 02/24/2023 9:08 AM EDT Temperature 36.6 C (97.9 F) 02/24/2023 9:08 AM ED T Respiratory Rate 18 02/24/2023 9:08 AM EDT Oxygen Saturation 96% 02/24/2023 9:08 AM EDT Inhaled Oxygen Concentration - - Weight 110.7 kg (244 lb) 02/24/2023 9:08 AM EDT pt reported Height 172.7 cm (5' 8") 02/24/2023 9:08 AM EDT Body Mass Index 37.1 02/24/2023 9:08 AM EDT documented in this encounter Progress Notes * Kirby Trent MD - 02/24/2023 9:08 AM EDT Images from the original note were not included. Assessment and Plan All considered patient doing well post discharge. Left lower extremity is warm and well-perfused. There is a pressure ulcer on the left heel. She will be referred to wound clinic for debridement and further management. Nonweightbearing for another 6 weeks. Has appropriate follow up with Orthopedics scheduled. Home physical therapy and home health are set up. No changes to her current medications.She was requesting audiology referral due to likely presbycusis. This is low on the list of priorities. Follow up with PCP as scheduled in April. 1. Closed fracture of distal end of left femur, unspecified fracture morphology, sequela 2. Pressure injury of skin of left heel, unspecified injury stage - WOUND CARE REFERRAL OP 3. Presbycusis of both ears - AUDIOLOGY REFERRAL OP 4. Type 2 diabetes mellitus with diabetic neuropathy, with long-term current use of insulin (HCC) 5. HTN, goal below 130/80 6. Hospital discharge follow-up Wrap-Up Follow up as scheduled with PCP on 04/28/2023. History of Present Illness The patient is a 72-year-old female with past medical history of type 2 diabetes, dyslipidemia, hypothyroidism, CKD 3A, [place] cirrhosis, Vpylskb-Meaaz-Shupw disease who presents for hospital follow up. Patient with extensive and complicated hospital course with multiple admissions. Patient initially presented to the ED on 02/01/2023 after a ground level fall. She was noted to have a left distal femoral fracture. Orthopedics was consulted for surgical management and the patient underwent left femur ORIF on 02/02/2023. Hospitalization was complicated by encephalopathy for which GI was consulted. S he was restarted on her home lactulose. No further interventions from GI. She was being treated fora UTI prior to hospitalization. Levaquin was continued on admission, however, id was consulted who recommended antibiotics be discontinued. She was then discharged to rehab on 02/07/2023. She re-presented to the ED on 02/07/2023 due to encephalopathy. She was admitted and workup included a CT head that was negative, normal ammonia levels, normal lactic acid levels. It was determined that polypharmacy was the cause of her acute encephalopathy. Opioid pain medications were discontinued, however, b enzodiazepines were continued per patient preference. She did also receive 2 units of packed red blood cells throughout the course of her hospitalizations for anemia. She was seen again by Orthopedics on an outpatient basis on 02/18/2023. At that time they felt she was recovering well. No changes to plan of care. She was discharged from rehab on 02/19/2023. Today patient reports she is overall doing well. Pain is reasonably controlled on xpsc-rtq-pjkxjup pain medications. The left lower extremity is warm and well- perfused. She is nonweightbearing for another 6 weeks. She does have a pressure ulcer on the posterior aspect of the left foot/left heel. Eating and drinking reasonably well. She does have a Gallagher catheter in place draining straw-colored urine. No med refills needed. She was requesting audiology referral for possible presbycusis. She notes bilateral hearing loss and muffled voices over the last number of months. No wax in the ears. Physical Exam Vitals: 02/24/23 0908 Temp: 36.6 C (97.9 F) Pulse: 70 Resp: 18 SpO2: 96% BP: 110/58 BMI: 37.11 Physical Exam Physical Exam Vitals reviewed. Constitutional: General: She is not in acute distress. HENT: Mouth/Throat: Mouth: Mucous membranes are moist. Pharynx: Posterior oropharyngeal erythema present. No oropharyngeal exudate. Cardiovascular: Rate and Rhythm: Normal rate and regular rhythm. Heart sounds: Murmur heard. Pulmonary: Effort: Pulmonary effort is normal. No respiratory distress. Genitourinary: Comments: Gallagher catheter in place draining straw-colored urine. Musculoskeletal: Cervical back: Neck supple. Lymphadenopathy: Cervical: No cervical adenopathy. Skin: Comments: Pressure ulcer of the left heel. See image below. Neurological: General: No focal deficit present. Mental Status: She is alert. documented in this encounter Nursing Notes * Brittney Turpin LPN - 02/24/2023 9:14 AM EDT The patient has been properly identified by confirmation of name and date of . Chief Complaint Patient presents with Hospital Follow-Up Sore throat, cough, congestion x one week, pressure ulcer left heel documented in this encounter Plan of Treatment Upcoming Encounters Date Type Specialty Care Team Description 03/03/2023 Telemedicine [facility] Lashay Blevins PA-C [address] [place] [address] Beverly Lozoya, [facility] [address] [place] [address] 04/09/2023 Office Visit Urology Alfredo Panda MD [address] [place], [place] [id number] 04/23/2023 Office Visit Infectious Disease Kendall Bell, DO [address] [place] [address] 04/28/2023 Office Visit Family Medicine Brian Domínguez MD [address] [place] [address] 05/05/2023 Office Visit Cardiology Sobia Brewster PA-C [address] [place] [address] 05/09/2023 Office Visit Gastroenterology Wendy Frias, DO [address] [place] [address] Scheduled Procedures Name Priority Associated Diagnoses Date/Ti me COLONOSCOPY FLEXIBLE PROXIMA L DIAGNOSTIC Recall Special screening for malignant neoplasms, colon Scheduled Referrals Name Type Priority Associated Diagnoses Orde r Schedule AUDIOLOGY REFERRAL OP Referral Within 10 days (routine) Presbycusis of both ears Ordered: 02/24/2023 WOUND CARE REFERRAL OP Referral Within 10 days (routine) Pressure injury of skin of left heel, unspecified injury stage Ordered: 02/24/2023 Health Maintenance Due Date Last Done Comments [...] Additional history exists CKD PHOS USE SMARTSET 11033 10/24/202310/05, 02/18/2022, 02/17/2022, Additional history exists TSH 02/14/2024 02/13/2023, 10/05, 02/28/2022, Additional history exists CKD HGB USE SMARTSET 00974 02/19/202402/18, 02/11/2023, 02/07/2023, Additional history exists Colonoscopy [...] this encounter Medical Devices Implanted Type Area Service Order Clerk Device Identifier Shelf Expiration Date Model / Serial / Lot Jenna Rojas 6 [id number] - [id number] [place]planted:[place] 1 on [place] [facility] [place] Chest DO NOT USE 07/21/2015 [id number] / / [id number] documented as of this encounter Visit Diagnoses Diagnosis Hospital discharge follow-up- Primary Other follow-up examination Closed fracture of distal end of left femur, unspecified fracture morphology, sequela Pressure injury of skin of left heel, unspecified injury stage Presbycusis of both ears Presbyacusis Type 2 diabetes mellitus with diabetic neuropathy, with long-term current use of insulin (HCC) HTN, goal below 130/80 Unspecified essential hypertension documented in this encounter Advance Directives Documents on File Type Date Recorded Patient Nuclear Monitoring Technician 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 Question Answer Comments Discussion of Advance Directives occurred with: Patient Does the patient have a Living Will? No Does the patient have Health Care Power of Globe Mounter? No Code Status History Code Status Date [...] the patient have Health Care Power of Globe Mounter? No Full Code 02/01/2010 4:02 PM 02/02/2010 4:09 PM This order reflects the patients wishes and were consensually agreed upon. Question Answer Comments Discussion of Advance Directives occurred with: Not Discussed Does the patient have a Living Will? No Does the patient have Health Care Power of Globe Mounter? No Healthcare Agents on File Name Relationship Healthcare Agent [facility] p Communication Carolyn Diananabila Adult Child Health Care Agent Care Teams Wire Fence Builder Relationship Specialty Start Date End Date Brian Domínguez MD [address] [place] [address] PCP - General Family Medicine 07/16/17 documented as of this encounter
--- OUTSIDE RECORDS SUMMARY | 2023-05-17 12:14 | External Medical Summary | Summary of Care ---
Author Name Unknown Organization [facility] Address [address] [place] [address] Phone [phone] Care Team Providers Care Election Assistant Name Role Phone Brian Domínguez MD Primary Care Provider [phone] Encounter Details Date Type Department Care Team Description 02/04/2023 Emergency Telemedicine IP Allergies Active Allergy Reactions Severity Noted Date Comments Propoxyphene Hcl Rash Low 10/29/2010 Fentanyl Diarrhea Low 04/26/2010 anxiety Methocarbamol Medium 10/05/2020 Other reaction(s): Delirium Methocarbamol Low 04/15/2007 Zolpidem Low 10/05/2020 Other reaction(s): Confusion documented as of this encounter (statuses as of 02/06/2023) Medications Medication Sig Dispensed Refills Start Date End Date Status ARIPiprazole (ABILIFY) 2 MG Tablet Take 1 Tablet by mouth in the morning. 0 2015 Active venlafaxine XR (EFFEXOR XR) 150 MG [id number]:Dep ression Take 1 Cap by mouth daily. [...] 0 11/18/2017 Active Blood Glucose Monitoring Suppl ([employer] VERIO) w/Device KIT Use as directed. Use [...] neuropathy, with long-term current use of insulin ([facility]) Inject 30 units under the skin twice [...] Respimat 2.5 MCG/ACT Inhalation Aerosol Solution (Tiotropium [place] Monohydrate) Inhale by mouth 2 Puffs in the morning. 4 g 3 04/25/2022 Active Estradiol 0.1 MG/GM Vaginal Cream Administer into the vagina 1 g in the morning. 42.5 g 12 05/07/2022 Active Diclofenac Sodium 1 % External Gel (Voltaren) Apply topically to affected area 2 times a day. 150 g 3 06/05/2022 Active Vitamin D (Ergocalciferol) 1.25 MG (41342 UT) Oral Capsule (Drisdol)Indication s:Vitamin D deficiency [...] per week 6 mL 3 08/20/2022 Active Gabapentin 300 MG Oral Capsule (Neurontin)Indicati ons:Lumbar spondylosis TAKE 1 CAPSULE BY MOUTH TWICE DAILY 60 Capsule 5 08/22/2022 Active Tamsulosin HCl 0.4 MG Oral Capsule [...] as directed 18 g 3 11/07/2022 Active Oxybutynin Chloride ER 10 MG Oral Tablet Extended Release 24 Hour (Ditropan XL) TAKE ONE TABLET BY MOUTH IN THE MORNING 90 Tablet 0 11/19/2022 Active Pantoprazole Sodium 40 MG Oral Tablet [...] 90 Tablet 1 12/19/2022 Active UltiCare Pen Canvas 31G X 5 MM (Insulin Pen Needle) use TWICE DAILY 200 Each 3 12/23/2022 Active Torsemide 20 MG Oral Tablet (Demadex)Indication s:Atherosclerotic heart disease of [place] coronary artery with other forms of angina pectoris (HCC),Hypertensive heart disease with chronic diastolic congestive heart failure (HCC) TAKE 1 TABLET BY MOUTH EVERY MORNING. MAY TAKE 1 ADDITIONAL TABLET NEEDED FOR SWELLING. 90 Tablet 1 12/24/2022 Active Methenamine Hippurate 1 GM Oral Tablet (Hiprex)Indications :Recurrent UTI TAKE ONE TABLET BY MOUTH IN THE MORNING AND ONE BEFORE BEDTIME 60 Tablet 0 01/14/2023 Active Spironolactone 50 MG Oral Tablet (Aldactone)Indicati ons:GONZALEZ (nonalcoholic steatohepatitis),Po rtal hypertension (HCC),Chronic liver disease and cirrhosis (HCC),Portal hypertensive gastropathy (HCC) Take 1 tablet by mouth in the morning and before bedtime 180 Tablet 3 01/16/2023 Active Nystatin 668014 UNIT/GM External Powder (Nystop)Indications :Candidal intertrigo Apply [...] daily 300 Strip 3 01/16/2023 Active Nystatin 478054 UNIT/ML Mouth/Throat Suspension SWISH AND SWALLOW 5ML [...] before bedtime. 60 Tablet 5 01/28/2023 Active documented as of this encounter (statuses as of 02/06/2023) Active Problems Problem Noted Date Medical home patient encounter 3 Hypertensive heart and kidne y disease with chronic diastolic congestive heart failure and stage 3a chronic kidney disease 12/28/2021 Last Assessment & Plan: Euvolemic, BP stable EF 55% 09/25 GFR 69 02/25 -Continue Torsemide 20 mg BID, Spironolactone 25 mg BID, Tropol XL 50 mg daily Atherosclerotic heart diseas e of [place] coronary artery with other forms of angina pectoris 11/15/2021 Last Assessment & Plan: Stable. No angina -continue toprol, ASA and statin Seasonal allergies 11/15/2021 Recurrent UTI 10/07/2021 Last Assessment & Plan: Followed by urology Pt is supposed to be on methenamine--will need to clarify with dgt that she is giving this. 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/2014 long term care social worker current use of anticoagulant therapy 1 [...] as of this encounter (statuses as of 02/06/2023) Immunizations Name Administration Dates Next Due COVID-19 [...] on file documented as of this encounter Consult Notes * Sidney Holley MD - 02/04/2023 11:48 AM EDT CONSULT - Infectious Disease TELEHEALTH IP Name: Angelina Ballard Location: MAIN IP TELEMEDICINE/Tel* Date: 02/04/2023 Time: 11:48 AM REQUESTING SERVICE: Medicine REASON FOR CONSULT: Telemedicine Consult - Sepsis After connecting through [employer], patient was identified by name and date of and wristband checked. Patient was then informed that this was a Telemedicine visit and that the exam was being conducted confidentially over secure lines. My office door was closed. No one else was in the room with me. Patient acknowledged consent and understanding of privacy and security of the Telemedicine visit, and gave us permission to have the care steam conditioner operator stay in the room in order to assist with thehistory and to conduct the exam. I informed the patient that I have reviewed their record in [employer] and presented the opportunity for them to ask any questions regarding the visit today. The patient agreed to participate. HPI: Patient is a 72 year old female admitted to the [facility] hospital on 02/01/2023. Ms. Ballard has a h/o DM, CAD, and GONZALEZ cirrhosis. She was admitted to [facility] after suffering a fall while leaving her house for a doctor's appointment. Upon admission to [facility] she was found to have a femoral fracture and underwent ORIF on 02/02/23. Prior to admission she was being treated for a Pseudomonal UTI (based on a urine culture from 01/22/23) with cipro->levaquin. This was continued on admission and post-op she has had some mild delirium and Afib. She has also had worsening anemia with progressive decline to a Hgb 6.6 this AM and some borderline temps of up to 38C. Daughter is at the bedside today and helps provide some of the history. The patient denies any pain at this time. She does complain of some diarrhea. She had up to 5 bowel movements last PM. No dysuria currently (has mejia cath). No abdominal pain, N/V. No SOB, though activity is limited. No cough or sore throat. ALLERGIES: Methocarbamol, Darvon [propoxyphene hcl], Fentanyl, Robaxin [methocarbamol], and Zolpidem PAST MEDICAL HISTORY: Past Medical History: Diagnosis Date ASCVD (arteriosclerotic cardiovascular disease) Bipolar 1 disorder (HCC) Sees Dr. Cooper Chronic coronary artery disease CHRONIC UTI (Klebsiella) 02/04/2005 referred to Urology. Diabetic gastroparesis (HCC) 04/28/2019 DM type 2, goal A1c below 7 05/04/2004 diet controlled, 03/07/05 hgba1c 5.4 Dyslipidemia, goal LDL below 160 HTN, goal to be determined Hypothyroidism Morbid obesity, BMI not known ([facility]) 05/25/[address] Portillo 04/10. GONZALEZ (nonalcoholic steatohepatitis) OCD (obsessive compulsive disorder) Sees Dr. Cooper Phlebitis and thrombophlebitis Seasonal allergies 11/15/2021 PAST SURGICAL HISTORY: Past Surgical History: Procedure Laterality Date ANESTHESIA, HEART CATHETERIZATION 06/04/12 at [facility] ARTHROPLASTY KNEE TOTAL right CABG, ARTERIAL, SINGLE 02/15/2011 CORONARY ARTERY BYPASS GRAFT USING ARTERY 1 GRAFT performed by TIERNEY GUERRERO at OR [facility] CATHETERIZE LEFT HEART THRU SKIN 04/11/09 LEFT HEART CATH, PERCUTANEOUS performed by GINGER FISHER at [facility] CATHETERIZE LEFT HEART THRU SKIN 02/01/2010 LEFT HEART CATH, PERCUTANEOUS performed by ALTHEA MANNING at [facility] CATHETERIZE LEFT HEART THRU SKIN 04/03/2010 LEFT HEART CATH, PERCUTANEOUS performed by GARCIA SOSA at [facility] COLONOSCOPY, DIAGNOSTIC (RECTUM) 05/20/2014 normal, repeat 10 yrs/done @ [facility] CORONARY ANGIOGRAPHY W/LEFT HEART CATH 10/29/2010 CORONARY ANGIOGRAPHY W/LEFT HEART CATH performed by ANNIE SEVILLA at [facility] EGD, FLEXIBLE, DIAGNOSTIC 12/05/2017 portal hypertensive gastropathy/[facility] EGD, FLEXIBLE, DIAGNOSTIC 10/25/2022 ESOPHAGOGASTRODUODENOSCOPY (EGD), FLEXIBLE, TRANSORAL, DIAGNOSTIC performed by Raghavendra Medrano MD at ENDOSCOPY [facility] EGD, W/ENDOSCOPIC US 06/26/2011 UPPER GI ENDOSCOPY ENDOSCOPIC ULTRASOUND performed by RACHEL BAHENA at ENDOSCOPY [facility] OTHER nerve biopsy right calf REMOVAL OF APPENDIX REMOVE ADDED SPINE LAMINA, 1 SEG 07/14 Dr. Saleem L4-L5 REMOVE GALLBLADDER TOTAL ABD HYSTERECTOMY W/WO REMOVAL OF TUBE(S) SOCIAL HISTORY: Social History Tobacco Use Smoking status: Never Passive exposure: Past Smokeless tobacco: Never Tobacco comments: Parents and then smoked Vaping Use Vaping Use: Never used Substance Use Topics Alcohol use: No Drug use: No FAMILY HISTORY and FAMILY STATUS: Family History Problem Relation Age of Onset Heart Disorder Mother angina Heart Disorder Father [place] @ 50's No Known Problems Brother Heart disease Brother Alcohol and Other Disorders Associated Brother Alcoholism Family Status Relation Status Mo alzhiemers Fa CAD, cancer Jak Alive DVT Jak Alive lupus Bro Alive Bro ETOH, heart disease ROS: Constitutional: (+) weakness and (+) fatigue Eyes: (-) negative, no amaurosis fugax, pain, blurred vision, or redness ENT: (-) negative: no headaches, vertigo, hearing loss, sinus, ear, or throat problems Cardiovascular: (-) negative: no chest pain, dyspnea, syncope, or palpitations Pulmonary: (-) negative: no cough, wheezing, or shortness of breath Abdominal/GI: (+) diarrhea Female : (-) negative: no dysuria, pelvic pain, irregular menses, or vaginal discharge Musculoskeletal: (+) Lef leg fracture as per HPI Hematology/oncology: (-) otherwise negative Skin: (-) negative: no rash or new or changing moles Neurology: (+) Some waxing and waning delirium PHYSICAL EXAMINATION via Telemed: Most Recent Vital Signs: T 36.2 C P 114 R 18 BP 132/74 Constitutional: (+) ill appearing HEENT: normal: normocephalic, atraumatic; no masses, tenderness, or adenopathy Eyes: sclera and conjunctiva normal Neck: normal range of motion Chest: normal respiratory effort Musculoskeletal: Left leg with immobilizer in place Extremities: no edema Skin: No rash : Neuro: alert, (+) Mildly confused, but answers most questions appropriately LABS: Labs reviewed as indicated below: WBC 12.67 Hgb 6.6 Platelets 115 Na 129 Creatinine 1.32 BUN 19 ALT 5 Tota bili 0.6 UA with >30 WBC, 5-10 RBC, yeast, >30 epithelial cells MICROBIOLOGY DATA: Blood cultures 02/03/23 NGTD Urine culture 02/03/23 with yeast Blood cultures 02/01/23 NGTD Urine culture from 02/01/23 contaminated COVID negative 02/01/23 IMAGING: CXR from today reviewed by me: Clear lungs Abdominal CT from 02/03/23 reviewed by me: IMPRESSION: 1. The unenhanced kidneys demonstrate no hydronephrosis or obvious obstructive nephrolithiasis. 2. No evidence for bowel obstruction. Evaluation of the bowel mucosa is limited without contrast and respiratory artifact. Prominent stool burden noted throughout the colon. This is of uncertain clinical significance and may represent normal variation or a component of constipation. No free intraperitoneal fluid or pneumoperitoneum. 3. The spleen is prominent in size, measuring 14 cm in length. No obvious focal splenic abnormality. IMPRESSION: 1. Left femoral fracture, S/P ORIF 2. Recent UTI due to Pseudomonas, resolved 3. Diarrhea 4. Anemia, post ORIF with low MCV 5. GONZALEZ cirrhosis RECOMMENDATIONS: 1. C diff stool testing 2. Consider GI consult in setting of microcytic anemia 3. D/C fluconazole 4. Assuming blood cultures from 02/03/23 remain negative in next 24 hours, I would D/C the meropenemand daptomycin Patient at risk for C diff and with new diarrhea, this needs to be ruled out. She has no evidence of ongoing UTI or other obvious infection currently. The anemia suggests a GI source of blood loss that may require being addressed and could even be a source of low grade fever. Her multiple medical problems make it difficult to pinpoint any source of infection otherwise, but she has no other clear infectious syndrome. Thank you for the consult referral. ID will continue to follow along with you from [facility]. documented in this encounter Plan of Treatment Upcoming Encounters Date Type Specialty Care Team Description 02/17/2023 Pharmacy Pharmacy [facility] [id number] [place], [place] [id number] 02/19/2023 Office Visit Gynecology Urology Nir Landa MD [address] [place] [address] Nurse Yury Fox [address] [place] [address] 03/03/2023 Telemedicine [facility] Lashay Blevins PA-C [address] [place] [address] Beverly Lozoya, [facility] [address] [place] [address] 04/09/2023 Office Visit Urology Alfredo Panda MD [address] [place] [address] 04/23/2023 Office Visit Infectious Disease Kendall Bell, DO [address] [place] [address] 04/28/2023 Office Visit Family Medicine Brian Domínguez MD [address] [place] [address] 05/05/2023 Office Visit Cardiology Sobia Brewster, PAArleen [address] [place] [address] 05/09/2023 Office Visit Gastroenterology Wendy Frias DO [address] [place] [address] Scheduled Procedures Name Priority Associated Diagnoses Date/Ti [...] 10/23/2022, 04/07, 11/01/2021, Additional history exists GFR 06/06/2023 12/05/2022, 0607/2022, 11/18/2022, Additional history exists Albumin/Creatinine Ratio 10/24/2023 023, 07/17/2022, 10/05/2020, Additional history exists CKD PHOS USE SMARTSET 42268 10/24/202310/05, 02/18/2022, 02/17/2022, Additional history exists TSH 10/24/2023 10/23/2022, 02/05, 09/24/2021, Additional history exists CKD HGB USE SMARTSET 26446 11/22/202311/21, 11/21/2022, 04/25/2022, Additional history exists Colonoscopy 05/20/2024 05/20/2014 Colorectal [...] encounter Medical Devices Implanted Type Area Supervisor Welding Equipment Repairer Device Identifier Shelf Expiration Date Model / Serial / Lot Jenna Rojas 6 [id number] - [id number] Implanted:Qty: 1 on 02/15/2011 at OR [facility] N/A: Chest DO NOT USE 07/21/2015 [id number] / / [id number] documented as of this encounter Advance Directives Documents on File Type Date Recorded Patient Sql Server D[employer] Expl 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 Question Answer Comments Discussion of Advance Directives occurred with: Patient Does the patient have a Living Will? No Does the patient have Health Care Power of Magazine Filler? No Code Status History Code Status Date [...] the patient have Health Care Power of Magazine Filler? No Full Code 02/01/2010 4:02 PM 02/02/2010 4:09 PM This order reflects the patients wishes and were consensually agreed upon. Question Answer Comments Discussion of Advance Directives occurred with: Not Discussed Does the patient have a Living Will? No Does the patient have Health Care Power of Magazine Filler? No Healthcare Agents on File Name Relationship Healthcare Agent Relationshi p Communication Carolyn Goldmandrewnabila Adult Child Health Care Agent Care Teams Election Assistant Relationship Specialty Start Date End Date Brian Domínguez MD [address] [place] [address] PCP - General Family Medicine 07/16/17 documented as of this encounter
--- OUTSIDE RECORDS SUMMARY | 2023-05-17 12:14 | External Medical Summary | Summary of Care ---
Author Name Unknown Organization [facility] Address [address] [place] [address] Phone [phone] Care Team Providers Care Private Secretary Name Role Phone Brian Domínguez MD Primary Care Provider [phone]- [phone] Reason for Visit * Reason Onset Date Comments case management 02/10/2023 Encounter Details Date Type Department Care Team Description 02/10/2023 Technology Administrator Telephone Family [facility] [address] [place] [address] Nayla Bellamy, management rep Allergies Active Allergy Reactions Severity Noted Date Comments Propoxyphene Hcl Rash Low 10/29/2010 Fentanyl Diarrhea Low 04/26/2010 anxiety Methocarbamol Medium 10/05/2020 Other reaction(s): Delirium Methocarbamol Low 04/15/2007 Zolpidem Low 10/05/2020 Other reaction(s): Confusion documented as of this encounter (statuses as of 02/10/2023) Medications Medication Sig Dispensed Refills Start Date End Date Status ARIPiprazole (ABILIFY) 2 MG Tablet Take 1 Tablet by mouth in the morning. 0 2015 Active venlafaxine XR (EFFEXOR XR) 150 MG HF74Busyresfinc:Dep ression Take 1 Cap by mouth daily. [...] 0 11/18/2017 Active Blood Glucose Monitoring Suppl (Ybrain VERIO) w/Device KIT Use as directed. Use [...] Respimat 2.5 MCG/ACT Inhalation Aerosol Solution (Tiotropium [place] Monohydrate) Inhale by mouth 2 Puffs in the morning. 4 g 3 04/25/2022 Active Estradiol 0.1 MG/GM Vaginal Cream Administer into the vagina 1 g in the morning. 42.5 g 12 05/07/2022 Active Diclofenac Sodium 1 % External Gel (Voltaren) Apply topically to affected area 2 times a day. 150 g 3 06/05/2022 Active Vitamin D (Ergocalciferol) 1.25 MG (46660 UT) Oral Capsule (Drisdol)Indication s:Vitamin D deficiency [...] 90 Tablet 1 12/19/2022 Active UltiCare Pen [place] 31G X 5 MM (Insulin Pen Needle) use TWICE DAILY 200 Each 3 12/23/2022 Active Torsemide 20 MG Oral Tablet (Demadex)Indication s:Atherosclerotic heart disease of havasupai coronary artery with other forms of angina [...] bedtime 180 Tablet 3 01/16/2023 Active Nystatin 163449 UNIT/GM External Powder (Nystop)Indications :Candidal intertrigo Apply [...] daily 300 Strip 3 01/16/2023 Active Nystatin 448343 UNIT/ML Mouth/Throat Suspension SWISH AND SWALLOW 5ML [...] before bedtime. 60 Tablet 5 01/28/2023 Active Methenamine Hippurate 1 GM Oral Tablet (Hiprex)Indications :Recurrent UTI TAKE ONE TABLET BY MOUTH IN THE MORNING AND ONE TABLET BEFORE BEDTIME 60 Tablet 0 02/10/2023 Active documented as of this encounter (statuses as of 02/10/2023) Active Problems Problem Noted Date Medical home patient encounter 3 Hypertensive heart and kidne y disease with chronic diastolic congestive heart failure and stage 3a chronic kidney disease 12/28/2021 Last Assessment & Plan: Euvolemic, BP stable EF 55% 09/25 GFR 69 02/25 -Continue Torsemide 20 mg BID, Spironolactone 25 mg BID, Tropol XL 50 mg daily Atherosclerotic heart diseas e of havasupai coronary artery with other forms of angina pectoris 11/15/2021 Last Assessment & Plan: Stable. No angina -continue toprol, ASA and statin Seasonal allergies 11/15/2021 Recurrent UTI 10/07/2021 Last Assessment & Plan: Followed by urology Pt is supposed to be on methenamine--will need to clarify with dgt that she is giving this. 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/2014 astronomy professor current use of anticoagulant therapy 1 08/18/2005 [...] as of this encounter (statuses as of 02/10/2023) Immunizations Name Administration Dates Next Due COVID-19 [...] Telephone Encounter - Nayla Bellamy RN - 02/10/2023 11:23 AM EDT CM Progress note S: called patient to do ANIL as was told from [facility] she was d/c from facility. Patient reports that she is at [facility], and expects to go back to [facility] today. She also reports that her "caregiver Carolyn" is also hospitalized. She states " I hope this doesn't effect my caregiver hours". O: phone call follow up A: Alert, forgetful, oriented to place P: CM to reach out after DC for ANIL assessment. documented in this encounter Plan of Treatment Upcoming Encounters Date Type Specialty Care Team Description 02/17/2023 Pharmacy Pharmacy [facility] [address] [place] [address] 02/19/2023 Office Visit Gynecology Urology Nir Landa MD [address] [place] [address] Nurse Yury oFx [address] [place] [address] 03/03/2023 Telemedicine [facility] Lashay Blevins PA-C [address] [place] [address] [address] [place] [phone] 04/09/2023 Office Visit Urology Alfredo Panda MD [address] [address] 04/23/2023 Office Visit Infectious Disease Kendall Bell, DO [address] [place] [address] 04/28/2023 Office Visit Family Medicine Brian Domínguez MD [address] [place] [address] 05/05/2023 Office Visit Cardiology Sobia Brewster PAAttila[facility] [address] [place] [address] 05/09/2023 Office Visit Gastroenterology Wendy Frias DO [address] [place] [address] Scheduled Procedures Name Priority Associated Diagnoses Date/Ti [...] 10/23/2022, 04/07, 11/01/2021, Additional history exists GFR 08/10/2023 02/07/2023, 06/0 07/2022, 12/05/2022, Additional history exists Albumin/Creatinine Ratio 10/24/2023 023, 07/17/2022, 10/05/2020, Additional history exists CKD PHOS USE SMARTSET 02215 10/24/202310/05, 02/18/2022, 02/17/2022, Additional history exists TSH 10/24/2023 10/23/2022, 02/05, 09/24/2021, Additional history exists CKD HGB USE SMARTSET 12846 02/08/202402/07, 11/21/2022, 11/21/2022, Additional history exists Colonoscopy 05/20/2024 05/20/2014 [...] this encounter Medical Devices Implanted Type Area Deployment Manager Device Identifier Shelf Expiration Date Model / Serial / Lot Jenna Rojas 6 [id number] - [id number] Implanted:Qty: 1 on 02/15/2011 at OR [facility] N/A: Chest DO NOT USE 07/21/2015 [id number] / / [id number] documented as of this encounter Advance Directives Documents on File Type Date Recorded Patient Fire Control System Installer 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 Question Answer Comments Discussion of Advance Directives occurred with: Patient Does the patient have a Living Will? No Does the patient have Health Care Power of Rv Repairer? No Code Status History Code Status Date [...] the patient have Health Care Power of Rv Repairer? No Full Code 02/01/2010 4:02 PM 02/02/2010 4:09 PM This order reflects the patients wishes and were consensually agreed upon. Question Answer Comments Discussion of Advance Directives occurred with: Not Discussed Does the patient have a Living Will? No Does the patient have Health Care Power of Rv Repairer? No Healthcare Agents on File Name Relationship Healthcare Agent [facility] Communication Carolyn Ballard Adult Child Health Care Agent Care Teams Private Secretary Relationship Specialty Start Date End Date Brian Domínguez MD [address] [place] [address] PCP - General Family Medicine 07/16/17 documented as of this encounter
--- OUTSIDE RECORDS SUMMARY | 2023-05-17 12:14 | External Medical Summary ---
Author Name Unknown Address Unknown Organization K09[facility] [address] Laboratory Report Ordering Provider Test Date Status ANTHONY SANDERSON 02/07/2023 05:55:00 Final Observation Date Value Abnormality Reference (Units ) Status BUN 02/07/2023 05:55:00 12 6-20 (mg/dL) Final Creatinine 02/07/2023 05:55:00 0.9 0.5-1.0 (mg/dL) Final Glomerular filtration rate/1.73 sq M.predicted [Volume Rate/Area] in Serum, Plasma or Blood by Creatinine-based formula (CKD-EPI) 02/07/2023 05:55:00 72 >=60 (mL/min) Final eGFR is calculated based on the CKD-EPI 2020 equation SODIUM 02/07/2023 05:55:00 134 Below low normal 135 -146 (mmol/L) Final Potassium 02/07/2023 05:55:00 3.7 3.5-5.1 (m mol/L) Final Cl 02/07/2023 05:55:00 100 98-107 (mm ol/L) Final CO2 02/07/2023 05:55:00 22 22-32 (mmo l/L) Final Anion gap 02/07/2023 05:55:00 12 7-15 (mmol /L) Final Glucose 02/07/2023 05:55:00 103 70-120 (mg /dL) Final Calcium 02/07/2023 05:55:00 8.1 Below low normal 8.4 -10.2 (mg/dL) Final Performing Location [facility] [address]
--- OUTSIDE RECORDS SUMMARY | 2023-05-17 12:14 | External Medical Summary ---
Author Name Unknown Address Unknown Organization K09[facility] [place] [place] [address] Laboratory Report Ordering Provider Test Date Status ANTHONY SANDERSON 02/11/2023 05:50:00 Final Observation Date Value Abnormality Reference (Units ) Status BUN 02/11/2023 05:50:00 11 6-20 (mg/dL) Final Creatinine 02/11/2023 05:50:00 1.0 0.5-1.0 (mg/dL) Final Glomerular filtration rate/1.73 sq M.predicted [Volume Rate/Area] in Serum, Plasma or Blood by Creatinine-based formula (CKD-EPI) 02/11/2023 05:50:00 61 >=60 (mL/min) Final eGFR is calculated based on the CKD-EPI 2020 equation SODIUM 02/11/2023 05:50:00 134 Below low normal 135 -146 (mmol/L) Final Potassium 02/11/2023 05:50:00 4.4 3.5-5.1 (m mol/L) Final Cl 02/11/2023 05:50:00 97 Below low normal 98- 107 (mmol/L) Final CO2 02/11/2023 05:50:00 24 22-32 (mmo l/L) Final Anion gap 02/11/2023 05:50:00 13 7-15 (mmol /L) Final Glucose 02/11/2023 05:50:00 135 Above high normal 70 -120 (mg/dL) Final Calcium 02/11/2023 05:50:00 9.1 8.4-10.2 ( mg/dL) Final Performing Location [facility] [place] [address]
--- OUTSIDE RECORDS SUMMARY | 2023-05-17 12:14 | External Medical Summary | Summary of Care ---
Author Name Unknown Organization [facility] Address [address] [place] [address] Phone [phone] Care Team Providers Care Datastage Architect Name Role Phone Brian Domínguez MD Primary Care Provider [phone]- [phone] Encounter Details Date Type Department Care Team Description 02/11/2023 Orders Only Outcomes Research Department [address] [place] [address] Bell Isbell CHRA [employer] Research Other*[id number] Allergies Active Allergy Reactions Severity Noted Date Comments Propoxyphene Hcl Rash Low 10/29/2010 Fentanyl Diarrhea Low 04/26/2010 anxiety Methocarbamol Medium 10/05/2020 Other reaction(s): Delirium Methocarbamol Low 04/15/2007 Zolpidem Low 10/05/2020 Other reaction(s): Confusion documented as of this encounter (statuses as of 02/11/2023) Medications Medication Sig Dispensed Refills Start Date End Date Status ARIPiprazole (ABILIFY) 2 MG Tablet Take 1 Tablet by mouth in the morning. 0 2015 Active venlafaxine XR (EFFEXOR XR) 150 MG [id number]:Dep ression Take 1 Cap by mouth daily. [...] 0 11/18/2017 Active Blood Glucose Monitoring Suppl (Jibestream VERIO) w/Device KIT Use as directed. Use as directed. 1 Kit 0 10/31/2018 Active Spacer/Aero-Holding Chambers WISAM Use with inhaler. Wheezing/bronchitis . 1 Device 0 04/08/2019 Active Akuminauch Delica Lancets 33G MISC USE UP TO [...] Respimat 2.5 MCG/ACT Inhalation Aerosol Solution (Tiotropium [place] Monohydrate) Inhale by mouth 2 Puffs in the morning. 4 g 3 04/25/2022 Active Estradiol 0.1 MG/GM Vaginal Cream Administer into the vagina 1 g in the morning. 42.5 g 12 05/07/2022 Active Diclofenac Sodium 1 % External Gel (Voltaren) Apply topically to affected area 2 times a day. 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 No angina -continue toprol, ASA and statin Seasonal allergies 11/15/2021 Recurrent UTI 10/07/2021 Last Assessment & Plan: Followed by urology Pt is supposed to be on methenamine--will need to clarify with dgt that she is giving this. 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 of anticoagulant therapy 1 [...] as of this encounter (statuses as of 02/11/2023) Immunizations Name Administration Dates Next Due COVID-19 [...] Encounters Date Type Specialty Care Team Description 02/11/2023 Laboratory Laboratory Processing [facility] [place] [address] [facility] [address] Ar[facility] 02/17/2023 [facility] [address] [address] 02/19/2023 Office Visit Gynecology Urology Nir Landa MD [address] [place] [address] Nurse Yury Fox [address] [place] [address] 03/03/2023 Telemedicine [facility] Lashay Blevins PA-C [address] [place] [address] Beverly Lozoya, [address] [place] [phone] 04/09/2023 Office Visit Urology Alfredo Panda MD [address] [place] [address] 04/23/2023 Office Visit Infectious Disease Kendall Bell, DO [address] [place] [address] 04/28/2023 Office Visit Family Medicine Brian Domínguez MD [address] [place] [address] 05/05/2023 Office Visit Cardiology Sobia Brewster PA-C [address] [place] [address] 05/09/2023 Office Visit Gastroenterology Wendy Frias, DO [address] [place] [address] Scheduled Orders Name Type Priority Associated Diagnoses Orde r Schedule MYCODE SUBSEQUENT ADULT Lab Routine [employer] Research Other*[id number] Every 6 Months for 2 Occurrences starting 02/11/2023 until 03/02/2024 Scheduled Procedures Name Priority Associated Diagnoses Date/Ti [...] 04/07, 11/01/2021, Additional history exists GFR 08/10/2023 02/11/2023, 08/0 10/2022, 12/05/2022, Additional history exists Albumin/Creatinine Ratio 10/24/2023 023, 07/17/2022, 10/05/2020, Additional history exists CKD PHOS USE SMARTSET 69892 10/24/202310/05, 02/18/2022, 02/17/2022, Additional history exists TSH 10/24/2023 10/23/2022, 02/05, 09/24/2021, Additional history exists CKD HGB USE SMARTSET 34462 02/08/202402/11, 02/07/2023, 11/21/2022, Additional history exists Colonoscopy 05/20/2024 [...] this encounter Medical Devices Implanted Type Area Tank Systems Maintainer Device Identifier Shelf Expiration Date Model / Serial / Lot Jenna Rojas 6 [id number] - [id number] Implanted:Qty: 1 on 02/15/2011 at [place] [facility] N/A: Chest DO NOT USE 07/21/2015 [id number] / / [id number] documented as of this encounter Visit Diagnoses Diagnosis [employer] [facility] Other*[id number] documented in this encounter Advance Directives Documents on File Type Date Recorded Patient 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 Question Answer Comments Discussion of Advance Directives occurred with: Patient Does the patient have a Living Will? No Does the patient have Health Care Power of Stamp Pad Finisher? No Code Status History Code Status Date [...] the patient have Health Care Power of Stamp Pad Finisher? No Full Code 02/01/2010 4:02 PM 02/02/2010 4:09 PM This order reflects the patients wishes and were consensually agreed upon. Question Answer Comments Discussion of Advance Directives occurred with: Not Discussed Does the patient have a Living Will? No Does the patient have Health Care Power of Stamp Pad Finisher? No Healthcare Agents on File Name Relationship Healthcare Agent [facility] Communication Carolyn Ballard Adult Child Health Care Agent Care Teams Datastage Architect Relationship Specialty Start Date End Date Brian Domínguez MD [address] [place] [address] PCP - General Family Medicine 07/16/17 documented as of this encounter
--- OUTSIDE RECORDS SUMMARY | 2023-05-17 12:14 | External Medical Summary ---
Author Name Unknown Address Unknown Organization K09[facility] [address] Laboratory Report Ordering Provider Test Date Status ANTHONY SANDERSON 02/07/2023 05:55:00 Final Observation Date Value Abnormality Reference (Units ) Status WBC, Total 02/07/2023 05:55:00 6.19 4.00-10.8 0 (K/uL) Final RBC 02/07/2023 05:55:00 3.27 3.85-5.15 (M/uL) Final Hemoglobin 02/07/2023 05:55:00 8.6 Below low normal 12 .0-15.3 (g/dL) Final HCT 02/07/2023 05:55:00 27.4 Below low normal 36. 0-45.2 (%) Final MCV 02/07/2023 05:55:00 83.8 81.5-97.5 (fL) Final MCH 02/07/2023 05:55:00 26.3 27.0-34.0 (pg) Final MCHC 02/07/2023 05:55:00 31.4 32.0-36.0 (g/dL) Final RDW 02/07/2023 05:55:00 18.8 11.5-15.5 (%) Final Platelets 02/07/2023 05:55:00 135 Below low normal 140 -400 (K/uL) Final MPV 02/07/2023 05:55:00 9.6 6.6-11.1 ( fL) Final Performing Location [facility] [address]
--- OUTSIDE RECORDS SUMMARY | 2023-05-17 12:14 | External Medical Summary | Summary of Care ---
Author Name Unknown Organization [facility] Address [address] [place] [address] Phone [phone] Care Team Providers Care Correspondence Clerk Name Role Phone Carmen Sifuentes MD Primary Care Provider [phone]- [phone] Reason for Visit * Reason Comments eRx-Medication Refill Encounter Details Date Type Department Care Team Description 02/10/[address] [facility] [address] [place] [address] Carmen Sifuentes MD [address] [place] [address] Lumbar spondylosis Allergies Active Allergy Reactions Severity [...] Active venlafaxine XR (EFFEXOR XR) 150 MG NM16Dbsleazujsr:De pression Take 1 Cap by mouth daily. With food. 30 Cap 5 09/02/19 17 Active Additional Information Patient taking differently: 225 mgOral Daily(AM), With food.,Indications: Takes 225 mg total every morning with food (150 mg tab + 75 mg tab), Reported on 06/24/2022 Blood Glucose Monitoring Suppl ([employer]-Jam[employer] GLUCOMETER) w/Device KITIndications:Unc ontrolled type 2 diabetes mellitus without complication, without long-term current use of insulin Use as directed. Use as directed once daily 1 Kit 0 11/19/19 18 Active Blood Glucose Monitoring Suppl ([employer] w/Device KIT Use as directed. Use as directed. 1 Kit 0 11/01/19 19 Active Spacer/Aero-Holdin g Chambers WISAM Use with inhaler. Wheezing/bronchiti s. 1 Device 0 04/08/20 19 Active Perficient Delica Lancets 33G MISC USE UP TO FOUR TIMES A DAY Dx:E11.4 100 Each 5 09/30/19 20 Active Lancet Devices (JotSpotTOUCH DELICA LANCING DEV) MISC Use four times [...] Respimat 2.5 MCG/ACT Inhalation Aerosol Solution (Tiotropium Diagonal Monohydrate) Inhale by mouth 2 Puffs in the morning. 4 g 3 04/25/20 22 Active Estradiol 0.1 MG/GM Vaginal Cream Administer into the vagina 1 g in the morning. 42.5 g 12 05/07/20 22 Active Diclofenac Sodium 1 % External Gel (Voltaren) Apply topically to affected area 2 times a day. 150 g 3 06/05/20 22 Active Vitamin D (Ergocalciferol) 1.25 MG (65489 UT) Oral Capsule (Drisdol)Indicatio ns:Vitamin D deficiency [...] directed 18 g 3 11/08/19 23 Active Oxybutynin Chloride ER 10 MG Oral Tablet Extended Release 24 Hour (Ditropan XL) TAKE ONE TABLET BY MOUTH IN THE MORNING 90 Tablet 0 11/20/19 23 Active Pantoprazole Sodium 40 MG Oral [...] Tablet 1 12/20/19 23 Active UltiCare Pen [place] 31G X 5 MM (Insulin Pen Needle) use TWICE DAILY 200 Each 3 12/24/19 23 Active Torsemide 20 MG Oral Tablet (Demadex)Indicatio ns:Atherosclerotic heart disease of [place] coronary artery with other forms of [...] 180 Tablet 3 01/17/20 23 Active Nystatin 814760 UNIT/GM External Powder (Nystop)Indication s:Candidal intertrigo Apply [...] 300 Strip 3 01/17/20 23 Active Nystatin 390147 UNIT/ML Mouth/Throat Suspension SWISH AND SWALLOW 5ML [...] BEDTIME 60 Tablet 0 02/11/20 23 Active Gabapentin 300 MG Oral Capsule (Neurontin)Indicat ions:Lumbar spondylosis TAKE 1 CAPSULE BY MOUTH TWICE DAILY 60 Capsule 5 08/22/19 23 023 Discontinued documented as of this [...] mg daily Atherosclerotic heart diseas e of [place] coronary artery with other forms of angina pectoris 11/15/2021 Last Assessment & Plan: Stable. No angina -continue toprol, ASA and statin Seasonal allergies 11/15/2021 Recurrent UTI 10/07/2021 Last Assessment & Plan: Followed by urology Pt is supposed to be on methenamine--will need to clarify with dgt that she is giving this. 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/2014 superintendent terminal current use of anticoagulant therapy 1 08/18/2005 [...] Telephone Encounter - Carmen Sifuentes MD - 02/10/2023 1:11 PM EDTSigned Prescriptions: Disp Refills Gabapentin 300 MG Oral Capsule (Neurontin) 60 Cap*5 Sig: TAKE 1CAPSULE BY MOUTH TWICE DAILYAuthorizing Provider: CARMEN SIFUENTES * Telephone Encounter - Reyna Melissa LPN - 02/10/2023 8:30 AM EDTPending Prescriptions: Disp Refills Gabapentin 300 MG Oral Capsule [Pharmacy M*60 Cap*0 Sig: TAKE 1 CAPSULE BY MOUTH TWICE DAILY * Telephone Encounter - Reyna Melissa LPN - 02/10/2023 8:25 AM EDT Provider to address: Pending Prescriptions: Disp Refills Gabapentin 300 MG Oral Capsule (Neurontin*60 Cap*0 Sig: TAKE 1 CAPSULE BY MOUTH TWICE DAILY Last Visit: 01/15/2023 (in office), 03/06/2022 (telemedicine) Next Visit: 04/28/2023 Last date the medication was ordered: 08/22/22 Patient Active Problem List Diagnosis Code PERONEAL MUSCLE ATROPHY G60.0 Gastroesophageal reflux disease without esophagitis K21.9 S/P angioplasty with stent Z95.820 Dyslipidemia, goal LDL below 70 E78.5 Hypothyroidism E03.9 GONZALEZ (nonalcoholic steatohepatitis) K75.81 Bipolar I disorder, most recent episode depressed, moderate (HCC) F31.32 HTN, goal below 130/80 I10 MEDICATION USE AGREEMENT ST4655 Pmzjdkz-Efofm-Setkf disease G60.0 Anxiety F41.9 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, T40.601A Hypertensive heart disease with chronic diastolic congestive heart failure (HCC) I11.0, I50.32 Fatty liver K76.0 Chronic liver disease and cirrhosis (HCC) K74.60, K76.9 Portal hypertensive gastropathy (HCC) K76.6, K31.89 Moderate aortic stenosis I35.0 Type 2 diabetes mellitus with diabetic neuropathy (HCC) E11.40 Diabetic gastroparesis (HCC) E11.43, K31.84 penitentiary (current) use of insulin (HCC) Z79.4 Pelvic pain R10.2 Urge incontinence N39.41 Type 2 diabetes mellitus with diabetic neuropathy, with long-term current use of insulin (HCC) E11.40, Z79.4 Type 2 diabetes mellitus with stage 3a chronic kidney disease, with long- term current use of insulin (HCC) E11.22, N18.31, Z79.4 Recurrent UTI N39.0 Atherosclerotic heart disease of [place] coronary artery with other forms of angina pectoris ([facility]) I25.118 Seasonal allergies J30.2 Hypertensive heart and kidney disease with chronic diastolic congestive heart failure and evbsb3g chronic kidney disease (HCC) I13.0, I50.32, N18.31 Medical home patient encounter Z00.8 Labs: Lab Results Component Value Date/Time CREATININE - [facility] 0.9 02/07/2023 05:55 AM CREATININE - [facility] 1.0 07/18/2020 12:20 PM CREATININE, RANDOM URINE - [facility] 41 10/23/2022 10:59 AM CREATININE, RANDOM URINE - [facility] 144 07/16/2017 12:06 PM CREATININE-OUTSIDE LAB 1.13 02/26/2021 12:00 AM Lab Results Component Value Date/Time POTASSIUM - [facility] 3.7 02/07/2023 05:55 AM POTASSIUM - [facility] 4.6 07/18/2020 12:20 [...] PM Reason for Call: eRx-Medication Refill Contact: Telephone Call Contact Type: Medication Outcome: pending Total Time including non face to face (minutes): 5 * Telephone Encounter - [facility] - 02/10/2023 6:23 AM EDTPending Prescriptions: Disp Refills Gabapentin 300 MG Oral Capsule [Pharmacy M*60 Cap*0 Sig: TAKE 1CAPSULE BY MOUTH TWICE DAILY documented in this encounter Plan of Treatment Upcoming Encounters Date Type Specialty Care Team Description 02/17/2023 Pharmacy Pharmacy [facility] [address] [place] [address] 02/19/2023 Office Visit Gynecology Urology Nir Landa MD [address] [place] [address] Nurse Yury Fox [address] [place] [address] 03/03/2023 Telemedicine [facility] Lashay Blevins PA-C [address] [place] [address] [address] [place] [address] 04/09/2023 Office Visit Urology Alfredo Panda MD [address] [place], [place] [id number] 04/23/2023 Office Visit Infectious Disease Kendall Bell, DO [address] [place] [address] 04/28/2023 Office Visit Family Medicine Carmen Sifuentes MD [address] [place] [address] 05/05/2023 Office Visit Cardiology Sobia Brewster PAAttilaC [address] [place] [address] 05/09/2023 Office Visit Gastroenterology Wendy Frias, DO [address] [place] [address] Scheduled Procedures Name Priority Associated Diagnoses Date/Ti [...] Additional history exists CKD PHOS USE SMARTSET 35419 10/24/202310/05, 02/18/2022, 02/17/2022, Additional history exists TSH 10/24/2023 10/23/2022, 02/05, 09/24/2021, Additional history exists CKD HGB USE SMARTSET 73561 02/08/202402/07, 11/21/2022, 11/21/2022, Additional history exists Colonoscopy [...] this encounter Medical Devices Implanted Type Area Coroner'S Juror Device Identifier Shelf Expiration Date Model / Serial / Lot Jenna Rojas 6 [id number] - [id number] Implanted:Qty: 1 on 02/15/2011 at [place] [facility] [place]/A: Chest DO NOT USE 07/21/2015 [id number] / / [id number] documented as of this encounter Visit Diagnoses Diagnosis Lumbar spondylosis Lumbosacral spondylosis without myelopathy documented in this encounter Advance Directives Documents on File Type Date Recorded Patient Yard Rigger 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 Question Answer Comments Discussion of Advance Directives occurred with: Patient Does the patient have a Living Will? No Does the patient have Health Care Power of Sulfuric Acid Plant Supervisor? No Code Status History Code Status [...] the patient have Health Care Power of Sulfuric Acid Plant Supervisor? No Full Code 02/01/2010 4:02 PM 02/02/2010 4:09 PM This order reflects the patients wishes and were consensually agreed upon. Question Answer Comments Discussion of Advance Directives occurred with: Not Discussed Does the patient have a Living Will? No Does the patient have Health Care Power of Sulfuric Acid Plant Supervisor? No Healthcare Agents on File Name Relationship Healthcare Agent [facility] Communication Carolyn Ballard Adult Child Health Care Agent Care Teams Correspondence Clerk Relationship Specialty Start Date End Date Carmen Sifuentes MD [address] [place] [address] PCP - General Family Medicine 07/16/17 documented as of this encounter
--- OUTSIDE RECORDS SUMMARY | 2023-05-17 12:14 | External Medical Summary ---
Author Name Unknown Address Unknown Organization K01:[facility] - [address] [facility] [address] Laboratory Report Ordering Provider Test Date Status JONAH CUBA 02/13/2023 05:30:00 Final Observation Date Value Abnormality Reference (Units ) Status TSH 02/13/2023 05:30:00 4.06 0.27-4.20 (uIU/mL) Final Performing Location [facility] - [address] [place] [address]
--- OUTSIDE RECORDS SUMMARY | 2023-05-17 12:14 | External Medical Summary | Summary of Care ---
Author Name Unknown Organization [facility] Address [address] [place] [address] Phone [phone] Care Team Providers Care Link Trainer Operator Name Role Phone Brian Domínguez MD Primary Care Provider [phone]- [phone] Reason for Visit * Reason Onset Date Comments Encounter Created in Error 02/01/2023 Encounter Details Date Type Department Care Team Description 02/01/2023 Telephone [facility] [address] [place] [address] Brian Domínguez MD [address] [place] [address] Encounter Created in Error Allergies Active Allergy Reactions Severity Noted Date Comments Propoxyphene Hcl Rash Low 10/29/2010 Fentanyl Diarrhea Low 04/26/2010 anxiety Methocarbamol Medium 10/05/2020 Other reaction(s): Delirium Methocarbamol Low 04/15/2007 Zolpidem Low 10/05/2020 Other reaction(s): Confusion documented as of this encounter (statuses as of 02/01/2023) Medications Medication Sig Dispensed Refills Start Date End Date Status ARIPiprazole (ABILIFY) 2 MG Tablet Take 1 Tablet by mouth in the morning. 0 2015 Active venlafaxine XR (EFFEXOR XR) 150 MG IW32Oosmbdjowks:Dep ression Take 1 Cap by mouth daily. [...] 0 11/18/2017 Active Blood Glucose Monitoring Suppl ([email or web address]) w/Device KIT Use as directed. Use as directed. 1 Kit 0 10/31/2018 Active Spacer/Aero-Holding Chambers WISAM Use with inhaler. Wheezing/bronchitis . 1 Device 0 04/08/2019 Active K[employer] Lancets 33G MISC USE UP TO FOUR TIMES A DAY Dx:E11.4 100 Each 5 09/30/2019 Active Lancet Devices ([employer] BiocharTOUCH DELICA LANCING DEV) MISC Use four times [...] Respimat 2.5 MCG/ACT Inhalation Aerosol Solution (Tiotropium [place] Monohydrate) Inhale by mouth 2 Puffs in the morning. 4 g 3 04/25/2022 Active Estradiol 0.1 MG/GM Vaginal Cream Administer into the vagina 1 g in the morning. 42.5 g 12 05/07/2022 Active Diclofenac Sodium 1 % External Gel (Voltaren) Apply topically to affected area 2 times a day. 150 g 3 06/05/2022 Active Vitamin D (Ergocalciferol) 1.25 MG (38131 UT) Oral Capsule (Drisdol)Indication s:Vitamin D deficiency [...] 90 Tablet 1 12/19/2022 Active UltiCare Pen Cable 31G X 5 MM (Insulin Pen Needle) use TWICE DAILY 200 Each 3 12/23/2022 Active Torsemide 20 MG Oral Tablet (Demadex)Indication s:Atherosclerotic heart disease of [place] coronary artery with other forms of angina [...] bedtime 180 Tablet 3 01/16/2023 Active Nystatin 056622 UNIT/GM External Powder (Nystop)Indications :Candidal intertrigo Apply [...] daily 300 Strip 3 01/16/2023 Active Nystatin 028560 UNIT/ML Mouth/Throat Suspension SWISH AND SWALLOW 5ML [...] TIMES DAILY 90 Tablet 0 01/27/2023 Active levoFLOXacin 500 MG Oral Tablet (Levaquin) Take 1 Tablet by mouth in the morning for 7 days. until gone.. 7 Tablet 0 01/27/2023 02/04/20 23 Active Vitamin C 500 MG Oral Tablet (Ascorbic Acid)Indications:Re current UTI Take 1 Tablet by mouth in the morning and 1 Tablet before bedtime. 60 Tablet 5 01/28/2023 Active documented as of this encounter (statuses as of 02/01/2023) Active Problems Problem Noted Date Medical home patient encounter 3 Hypertensive heart and kidne y disease with chronic diastolic congestive heart failure and stage 3a chronic kidney disease 12/28/2021 Last Assessment & Plan: Euvolemic, BP stable EF 55% 09/25 GFR 69 02/25 -Continue Torsemide 20 mg BID, Spironolactone 25 mg BID, Tropol XL 50 mg daily Atherosclerotic heart diseas e of [place] coronary artery with other forms of angina pectoris 11/15/2021 Last Assessment & Plan: Stable. No angina -continue toprol, ASA and statin Seasonal allergies 11/15/2021 Recurrent UTI 10/07/2021 Last Assessment & Plan: Followed by urology Pt is supposed to be on methenamine--will need to clarify with dgt that she is giving this. 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 1 [...] as of this encounter (statuses as of 02/01/2023) Immunizations Name Administration Dates Next Due COVID-19 [...] Miscellaneous Notes * Telephone Encounter - DENG Wilks - 02/01/2023 10:05 AM EDT Error documented in this encounter Plan of Treatment Upcoming Encounters Date Type Specialty Care Team Description 02/01/2023 Office Visit Family Medicine Tramaine Silverman MD [address] [place] [address] [place] [address] 02/17/2023 Pharmacy Pharmacy [facility] [address] [place] [address] 02/19/2023 Office Visit Gynecology Urology Nir Landa MD [address] [place] [address] Nurse Yury Fox [address] [place] [address] 03/03/2023 Telemedicine [facility] Lashay Blevins PA-C [address] [place] [address] Beverly Lozoya, [facility] Application Engineer [address] [place] [address] [place] [address] 04/09/2023 Office Visit Urology [facility] [address] [facility] [address] [place], [place] [phone] 04/23/2023 Office Visit Infectious Disease Kendall Bell, DO [address] [place] [address] 04/28/2023 Office Visit Family Medicine Brian Domínguez MD [address] [place] [address] 05/05/2023 Office Visit Cardiology Sobia Brewster PAAttilaC [address] [place] [address] 05/09/2023 Office Visit Gastroenterology Wendy Frias, DO [address] [place] [address] Scheduled Procedures Name Priority Associated Diagnoses Date/Ti [...] 11/01/2021, Additional history exists GFR 06/06/2023 12/05/2022, 06/07/2022, 11/18/2022, Additional history exists Albumin/Creatinine Ratio 10/24/2023 023, 07/17/2022, 10/05/2020, Additional history exists CKD PHOS USE SMARTSET 20020 10/24/2023 04/03/2023, 02/18/2022, 02/17/2022, Additional history exists TSH 10/24/2023 10/23/2022, 02/05, 09/24/2021, Additional history exists CKD HGB USE SMARTSET 10994 11/22/202311/21, 11/21/2022, 04/25/2022, Additional history exists Colonoscopy [...] encounter Medical Devices Implanted Type Area Java Web Architect Device Identifier Shelf Expiration Date Model / Serial / Lot Sut Steel 6 [id number] - [id number] Implanted:Qty: 1 on 02[place]15/2011 [place] [facility] [place] Chest DO NOT USE 07/21/2015 [id number] / / [id number] documented as of this encounter Advance Directives Documents on File Type Date Recorded Patient Newspaper Vendor Expl anation POLST 05/06/2018 POLST Latest Code [...] patient have Health Care Power of Senior Account Manager? No Code Status History Code Status [...] patient have Health Care Power of Senior Account Manager? No Full Code 02/01/2010 4:02 PM 02/02/2010 4:09 PM This order reflects the patients wishes and were consensually agreed upon. Question Answer Comments Discussion of Advance Directives occurred with: Not Discussed Does the patient have a Living Will? No Does the patient have Health Care Power of Senior Account Manager? No Healthcare Agents on File Name Relationship Healthcare Agent [facility] Communication Carolyn Goldmandrewnabila Adult Child Health Care Agent Care Teams Link Trainer Operator Relationship Specialty Start Date End Date Brian Domínguez MD [address] [place] [address] PCP - General Family Medicine 07/16/17 documented as of this encounter
--- OUTSIDE RECORDS SUMMARY | 2023-05-17 12:14 | External Medical Summary ---
Author Name Unknown Address Unknown Organization K09:[facility] [place] [address] Laboratory Report Ordering Provider Test Date Status ANTHONY SANDERSON 02/11/2023 05:50:00 Final Observation Date Value Abnormality Reference (Units ) Status WBC, Total 02/11/2023 05:50:00 8.03 4.00-10.8 0 (K/uL) Final RBC 02/11/2023 05:50:00 4.04 3.85-5.15 (M/uL) Final Hemoglobin 02/11/2023 05:50:00 10.8 Below low normal 12 .0-15.3 (g/dL) Final HCT 02/11/2023 05:50:00 34.3 Below low normal 36. 0-45.2 (%) Final MCV 02/11/2023 05:50:00 84.9 81.5-97.5 (fL) Final MCH 02/11/2023 05:50:00 26.7 27.0-34.0 (pg) Final MCHC 02/11/2023 05:50:00 31.5 32.0-36.0 (g/dL) Final RDW 02/11/2023 05:50:00 20.3 11.5-15.5 (%) Final Platelets 02/11/2023 05:50:00 227 140-400 (K /uL) Final MPV 02/11/2023 05:50:00 10.4 6.6-11.1 ( fL) Final Performing Location [facility] [place] [address]
--- OUTSIDE RECORDS SUMMARY | 2023-05-17 12:14 | External Medical Summary | Summary of Care ---
Author Name Unknown Organization [facility] Address [address] [place] [address] Phone [phone] Care Team Providers Care Collar Setter Name Role Phone Carmen Sifuentes MD Primary Care Provider [phone]- [phone] Encounter Details Date Type Department Care Team Description 01/28/2023 Refill [facility] [address] [place] [address] Carmen Sifuentes MD [address] [place] [address] Recurrent UTI Allergies Active Allergy Reactions Severity Noted Date Comments Propoxyphene Hcl Rash Low 10/29/2010 Fentanyl Diarrhea Low 04/26/2010 anxiety Methocarbamol Medium 10/05/2020 Other reaction(s): Delirium Methocarbamol Low 04/15/2007 Zolpidem Low 10/05/2020 Other reaction(s): Confusion documented as of this encounter (statuses as of 01/28/2023) Medications Medication Sig Dispensed Refills Start Date End Date Status ARIPiprazole (ABILIFY) 2 MG Tablet Take 1 Tablet by mouth in the morning. 0 6 Active venlafaxine XR (EFFEXOR XR) 150 MG UV03Tlohgubsyub:Dep ression Take 1 Cap by mouth daily. With food. 30 Cap 5 7 Active Additional Information Patient taking differently: 225 mgOral Daily(AM), With food.,Indications: Takes 225 mg total every morning with food (150 mg tab + 75 mg tab), Reported on 06/24/2022 Blood Glucose Monitoring Suppl (Bandtastic-AWID GLUCOMETER) w/Device KITIndications:Unco ntrolled type 2 diabetes mellitus without complication, without long-term current use of insulin Use as directed. Use as directed once daily 1 Kit 0 8 Active Blood Glucose Monitoring Suppl ([employer]) w/Device KIT Use as directed. Use as directed. 1 Kit 0 9 Active Spacer/Aero-Holding Chambers WISAM Use with inhaler. Wheezing/bronchiti s. 1 Device 0 9 Active Litesprite [employer] Lancets 33G MISC USE UP TO FOUR TIMES A DAY Dx:E11.4 100 Each 5 0 Active Lancet Devices (Oracle YouthUCH DELICA LANCING DEV) MISC Use four times [...] DAILY DIRECTED 2700 mL 5 2 Active Budesonide-Formoter ol Fumarate 160-4.5 MCG/ACT Inhalation [...] twice daily 45 mL 3 2 Active Insulin Glargine Solostar 100 UNIT/ML Subcutaneous Solution Pen-injector (Basaglar KwikPen)Indications :Type 2 diabetes mellitus with diabetic neuropathy, with long-term current use of insulin (HCC) Inject 30 units under the skin twice daily 45 mL 3 2 Active Metoprolol Succinate ER 25 MG Oral Tablet Extended Release 24 Hour (toPROL XL) Take by mouth 1 Tablet in the morning. 90 Tablet 3 2 Active Atorvastatin Calcium 40 MG Oral Tablet (Lipitor)Indication s:Dyslipidemia, goal LDL below 70 Take by mouth 1 Tablet in the morning. 90 Tablet 3 2 Active Spiriva Respimat 2.5 MCG/ACT Inhalation Aerosol Solution (Tiotropium [place] Monohydrate) Inhale by mouth 2 Puffs in the morning. 4 g 3 2 Active Estradiol 0.1 MG/GM Vaginal Cream Administer into the vagina 1 g in the morning. 42.5 g 12 2 Active Diclofenac Sodium 1 % External Gel (Voltaren) Apply topically to affected area 2 times a day. 150 g 3 2 Active Vitamin D (Ergocalciferol) 1.25 MG (52520 UT) Oral Capsule (Drisdol)Indication s:Vitamin D deficiency [...] per week 6 mL 3 3 Active Gabapentin 300 MG Oral Capsule (Neurontin)Indicati ons:Lumbar spondylosis TAKE 1 CAPSULE BY MOUTH TWICE DAILY 60 Capsule 5 3 Active Tamsulosin HCl 0.4 MG Oral Capsule (Flomax) Take 1 Capsule by mouth in the morning. Every morning.. 90 Capsule 3 3 Active lamoTRIgine 25 MG Oral Tablet (LaMICtal) Take 1 tablet by mouth in the morning for a total of 125mg, then 2 tablets by mouth in the evening every day 0 3 Active metFORMIN HCl ER 500 MG Oral Tablet Extended Release 24 Hour (Glucophage XR) Take 1 Tablet by mouth daily with dinner. 30 Tablet 5 3 Active Famotidine 40 MG Oral Tablet (Pepcid)Indications :Gastroesophageal reflux disease with esophagitis without hemorrhage Take 1 Tablet by mouth in the morning. 90 Tablet 1 3 Active Albuterol Sulfate HFA 108 (90 Base) MCG/ACT Inhalation Aerosol SolutionIndications :Cough Use two puffs four times a day, as directed 18 g 3 3 Active Oxybutynin Chloride ER 10 MG Oral Tablet Extended Release 24 Hour (Ditropan XL) TAKE ONE TABLET BY MOUTH IN THE MORNING 90 Tablet 0 3 Active Pantoprazole Sodium 40 MG Oral [...] 90 Tablet 1 3 Active UltiCare Pen [place] 31G X 5 MM (Insulin Pen Needle) use TWICE DAILY 200 Each 3 3 Active Torsemide 20 MG Oral Tablet (Demadex)Indication s:Atherosclerotic heart disease of [place] coronary artery with other forms of angina pectoris (HCC),Hypertensive heart disease with chronic diastolic congestive heart failure (HCC) TAKE 1 TABLET BY MOUTH EVERY MORNING. MAY TAKE 1 ADDITIONAL TABLET NEEDED FOR SWELLING. 90 Tablet 1 3 Active Methenamine Hippurate 1 GM Oral Tablet (Hiprex)Indications :Recurrent UTI TAKE ONE TABLET BY MOUTH IN THE MORNING AND ONE BEFORE BEDTIME 60 Tablet 0 3 Active Spironolactone 50 MG Oral Tablet (Aldactone)Indicati ons:GONZALEZ (nonalcoholic steatohepatitis),Po rtal hypertension (HCC),Chronic liver disease and cirrhosis (HCC),Portal hypertensive gastropathy (HCC) Take 1 tablet by mouth in the morning and before bedtime 180 Tablet 3 3 Active Nystatin 099822 UNIT/GM External Powder (Nystop)Indications :Candidal intertrigo Apply [...] daily 300 Strip 3 3 Active Nystatin 544779 UNIT/ML Mouth/Throat Suspension SWISH AND SWALLOW 5ML [...] needed (pain). 60 Tablet 0 3 Active Morphine Sulfate ER 15 MG Oral Tablet Extended Release (Ms Contin)Indications: Lumbar spondylosis Take 1 Tablet by mouth at bedtime as needed for Pain, Severe. 30 Tablet 0 3 Active clonazePAM 0.5 MG Oral Tablet (KlonoPIN)Indicatio ns:Bipolar I disorder, most recent episode depressed, moderate (HCC) TAKE ONE TABLET BY MOUTH THREE TIMES DAILY 90 Tablet 0 3 Active levoFLOXacin 500 MG Oral Tablet (Levaquin) Take 1 Tablet by mouth in the morning for 7 days. until gone.. 7 Tablet 0 3 02/04/20 23 Active Vitamin C 500 MG Oral Tablet (Ascorbic Acid)Indications:Re current UTI Take 1 Tablet by mouth in the morning and 1 Tablet before bedtime. 60 Tablet 5 3 Active Vitamin C 500 MG Oral Tablet (Ascorbic Acid)Indications:Re current UTI TAKE 1 TABLET BY MOUTH TWICE DAILY 60 Tablet 0 3 01/29/20 23 Discontinu ed(Refill) documented as of this encounter (statuses as of 01/28/2023) Active Problems Problem Noted Date Medical home patient encounter 3 Hypertensive heart and kidne y disease with chronic diastolic congestive heart failure and stage 3a chronic kidney disease 12/28/2021 Last Assessment & Plan: Euvolemic, BP stable EF 55% 09/25 GFR 69 02/25 -Continue Torsemide 20 mg BID, Spironolactone 25 mg BID, Tropol XL 50 mg daily Atherosclerotic heart diseas e of [place] coronary artery with other forms of angina pectoris 11/15/2021 Last Assessment & Plan: Stable. No angina -continue toprol, ASA and statin Seasonal allergies 11/15/2021 Recurrent UTI 10/07/2021 Last Assessment & Plan: Followed by urology Pt is supposed to be on methenamine--will need to clarify with dgt that she is giving this. 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 Anxiety 08/05/2017 Ttgxbih-Ehugh-Xmvme disease 06/27/2015 Last Assessment & Plan: Frequent [...] as of this encounter (statuses as of 01/28/2023) Resolved Problems Problem Noted Date Resolved Date [...] 05/06/2018 019 Atherosclerotic heart diseas e of [place] coronary artery with other forms of angina [...] coronary syndrome 10/30/2010 01/22/20 14 PERNELL Research Other*[id number] 02/02/2010 04/18/2014 Overview: [place] [facility], Dr Joel CASAS Obesity, morbid (more [...] as of this encounter (statuses as of 01/28/2023) Immunizations Name Administration Dates Next Due COVID-19 [...] Telephone Encounter - Carmen Sifuentes MD - 01/28/2023 5:06 PM EDTSigned Prescriptions: Disp Refills Vitamin C 500 MG Oral Tablet (Ascorbic Aci*60 Tab*5 Sig: Take 1 Tablet by mouth in the morning and 1 Tablet before bedtime.Authorizing Provider: CARMEN SIFUENTES- * Telephone Encounter - Elmira Kebede [facility] - 01/28/2023 2:58 PM EDT Did you pend patient's preferred pharmacy and medication before forwarding?yes Pharmacy: No prescriptions requested or ordered in this encounter Last Visit: 01/15/2023 (in office), 03/06/2022 (telemedicine) Next Visit: 04/28/2023 If no future appointments scheduled, and last appointment is greater than a year ago, please schedule patient for a follow-up appointment Last date the medication was ordered: 1 [facility] called and states that pt needs a refill on Vitamin C 500 MG Oral Tablet Is this request for a controlled substance?No Urine Drug Screen:No results found. However, due to the size of the patient record, not all encounters were searched. Please check Results Review for a complete set of results. Patient Phone Numbers Labs: Lab Results Component Value Date/Time CREAT 1.1 (H) 12/05/2022 12:33 PM CREAT 1.13 02/26/2021 12:00 AM CREAT 1.0 07/18/2020 12:20 PM POTASSIUM 4.2 12/05/2022 09:00 AM POTASSIUM 4.0 02/26/2021 12:00 AM POTASSIUM 4.6 07/18/2020 12:20 PM TSH 2.74 10/23/2022 10:46 AM TSH 1.47 05/22/2020 01:24 PM LDLCALC [...] Specialty Care Team Description 02/17/2023 Pharmacy Pharmacy [facility] [address], [place] [id number] 02/19/2023 Office Visit Gynecology Urology Nir Landa MD [address] [place] [address] Nurse Yury Fox [address] [place] [address] 03/03/2023 Telemedicine [facility] Lashay Blevins PA-Peter [address] [place] [address] Beverly Lozoya, [facility] [address] [place] [address] 04/09/2023 Office Visit Urology Alfredo Panda MD [address] [place] [address] 04/23/2023 Office Visit Infectious Disease Kendall Bell, DO [address] [place] [address] 04/28/2023 Office Visit Family Medicine Carmen Sifuentes MD [address] [place] [address] 05/05/2023 Office Visit Cardiology Sobia Brewster PA-C [address] [place] [address] 05/09/2023 Office Visit Gastroenterology Wendy Frias DO [address] [place] [address] Scheduled Procedures Name Priority Associated Diagnoses Date/Ti [...] Additional history exists CKD PHOS USE SMARTSET 74597 10/24/202310/05, 02/18/2022, 02/17/2022, Additional history exists TSH 10/24/2023 10/23/2022, 02/05, 09/24/2021, Additional history exists CKD HGB USE SMARTSET 72445 11/22/202311/21, 11/21/2022, 04/25/2022, Additional history exists Colonoscopy [...] this encounter Medical Devices Implanted Type Area Contact Center Rep Device Identifier Shelf Expiration Date Model / Serial / Lot Sut Steel 6 [id number] - [id number] Implanted:Qty: 1 on 02/15/2011 [place] [facility] [place]: Chest DO NOT USE 07/21/2015 [id number] / / [id number] documented as of this encounter Visit Diagnoses Diagnosis Recurrent UTI Urinary tract infection, site not specified documented in this encounter Advance Directives Documents on File Type Date Recorded Patient Front Office Specialist Expl 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 Question Answer Comments Discussion of Advance Directives occurred with: Patient Does the patient have a Living Will? No Does the patient have Health Care Power of Operator Automated Process? No Code Status History Code Status Date [...] the patient have Health Care Power of Operator Automated Process? No Full Code 02/01/2010 4:02 PM 02/02/2010 4:09 PM This order reflects the patients wishes and were consensually agreed upon. Question Answer Comments Discussion of Advance Directives occurred with: Not Discussed Does the patient have a Living Will? No Does the patient have Health Care Power of Operator Automated Process? No Healthcare Agents on File Name Relationship [facility] Communication Carolyn Ballard Adult Child Health Care Agent Care Teams Collar Setter Relationship Specialty Start Date End Date Carmen Sifuentes MD [address] [place] [address] PCP - General Family Medicine 07/16/17 documented as of this encounter
--- OUTSIDE RECORDS SUMMARY | 2023-05-17 12:14 | External Medical Summary | Summary of Care ---
Author Name Unknown Organization [facility] Address [address] [place] [address] Phone [phone] Care Team Providers Care Drill Sharpener Operator Name Role Phone Brian Domínguez MD Primary Care Provider [phone]- [phone] Reason for Visit * Reason Comments eRx-Medication Refill Encounter Details Date Type Department Care Team Description 02/10/2023 Refill Urology, [facility] [address] [facility] [place] [address] Alfredo Ahmadi MD [address] [facility] [address] [place] [address] Recurrent UTI Allergies Active Allergy Reactions [...] Active venlafaxine XR (EFFEXOR XR) 150 MG ZB20Xepnltudjtz:De pression Take 1 Cap by mouth daily. With food. 30 Cap 5 09/02/19 17 Active Additional Information Patient taking differently: 225 mgOral Daily(AM), With food.,Indications: Takes 225 mg total every morning with food (150 mg tab + 75 mg tab), Reported on 06/24/2022 Blood Glucose Monitoring Suppl ([employer] GLUCOMETER) w/Device KITIndications:Unc ontrolled type 2 diabetes mellitus without complication, without long-term current use of insulin Use as directed. Use as directed once daily 1 Kit 0 11/19/19 18 Active Blood Glucose Monitoring Suppl ([employer]) w/Device KIT Use as directed. Use as directed. 1 Kit 0 11/01/19 19 Active Spacer/Aero-Holdin g Chambers WISAM Use with inhaler. Wheezing/bronchiti s. 1 Device 0 04/08/20 19 Active [employer] Delica Lancets 33G MISC USE UP TO FOUR TIMES A DAY Dx:E11.4 100 Each 5 09/30/19 20 Active Lancet Devices (LearndotTOUCH DELICA LANCING DEV) MISC Use four times [...] Respimat 2.5 MCG/ACT Inhalation Aerosol Solution (Tiotropium [place] Monohydrate) Inhale by mouth 2 Puffs in the morning. 4 g 3 04/25/20 22 Active Estradiol 0.1 MG/GM Vaginal Cream Administer into the vagina 1 g in the morning. 42.5 g 12 05/07/20 22 Active Diclofenac Sodium 1 % External Gel (Voltaren) Apply topically to affected area 2 times a day. 150 g 3 06/05/20 22 Active Vitamin D (Ergocalciferol) 1.25 MG (08953 UT) Oral Capsule (Drisdol)Indicatio ns:Vitamin D deficiency [...] week 6 mL 3 08/20/19 23 Active Gabapentin 300 MG Oral Capsule (Neurontin)Indicat ions:Lumbar spondylosis TAKE 1 CAPSULE BY MOUTH TWICE DAILY 60 Capsule 5 08/22/19 23 Active Tamsulosin HCl 0.4 MG Oral [...] Tablet 1 12/20/19 23 Active UltiCare Pen [place] 31G X 5 MM (Insulin Pen Needle) use TWICE DAILY 200 Each 3 12/24/19 23 Active Torsemide 20 MG Oral Tablet (Demadex)Indicatio ns:Atherosclerotic heart disease of [place] coronary artery with other forms of angina [...] 180 Tablet 3 01/17/20 23 Active Nystatin 011676 UNIT/GM External Powder (Nystop)Indication s:Candidal intertrigo Apply [...] daily 300 Strip 3 01/17/20 Active Nystatin 059275 UNIT/ML Mouth/Throat Suspension SWISH AND SWALLOW 5ML [...] bedtime. 60 Tablet 5 01/29/20 23 Active Methenamine Hippurate 1 GM Oral Tablet (Hiprex)Indication s:Recurrent UTI TAKE ONE TABLET BY MOUTH IN THE MORNING AND ONE TABLET BEFORE BEDTIME 60 Tablet 0 02/11/20 23 Active Methenamine Hippurate 1 GM Oral Tablet (Hiprex)Indication s:Recurrent UTI TAKE ONE TABLET BY MOUTH IN THE MORNING AND ONE BEFORE BEDTIME 60 Tablet 0 01/15/20 23 023 Discontinued documented as of this [...] mg daily Atherosclerotic heart diseas e of [place] coronary artery with other forms of angina pectoris 11/15/2021 Last Assessment & Plan: Stable. No angina -continue toprol, ASA and statin Seasonal allergies 11/15/2021 Recurrent UTI 10/07/2021 Last Assessment & Plan: Followed by urology Pt is supposed to be on methenamine--will need to clarify with dgt that she is giving this. 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 Anxiety 08/05/2017 Gbsbgtv-Vmbfg-Fsnwt disease 06/27/2015 Last Assessment & Plan: Frequent [...] 05/06/2018 019 Atherosclerotic heart diseas e of [place] coronary artery with other forms of angina [...] coronary syndrome 10/30/2010 01/22/20 14 PERNELL Research Other*[id number] 02/02/2010 04/18/2014 Overview: [place] [facility], Dr Joel CASAS Obesity, morbid (more [...] Telephone Encounter - Alfredo Ahmadi MD - 02/10/2023 10:21 AM EDTSigned Prescriptions: Disp Refills Methenamine Hippurate 1 GM Oral Tablet (Hi*60 Tab*0 Sig: TAKE ONE TABLET BY MOUTH IN THE MORNING AND ONE TABLET BEFORE BEDTIME Authorizing Provider: ALFREDO AHMADI * Telephone Encounter - Fani Starr LPN - 02/10/2023 8:27 AM EDTPending Prescriptions: Disp Refills Methenamine Hippurate 1 GM Oral Tablet [Ph*60 Tab*0 Sig: TAKE ONE TABLET BY MOUTH IN THE MORNING AND ONE TABLET BEFORE BEDTIME * Telephone Encounter - Fani Starr LPN - 02/10/2023 8:27 AM EDT Please refill the requested medication(s). Methanamine 09/18/2022 (in office), Visit date not found (telemedicine) 04/09/2023 Review of patient's allergies indicates: Allergen Reactions Methocarbamol Other reaction(s): Delirium Darvon [Propoxyphene Hcl] Rash Fentanyl Diarrhea anxiety Robaxin [Methocarbamol] Zolpidem Other reaction(s): Confusion documented in this encounter Plan of Treatment Upcoming Encounters Date Type Specialty Care Team Description 02/17/2023 Pharmacy Pharmacy [address] [address] 02/19/2023 Office Visit Gynecology Urology Nir Landa MD [address] [place] [address] Nurse Yury Fox [address] [place] [address] 03/03/2023 Telemedicine [facility] Lashay Blevins PA-C [address] [place] [address] Beverly Lozoya, [address] [place] [address] 04/09/2023 Office Visit Urology Alfredo Ahmadi MD [address] [place], [place] [phone] 04/23/2023 Office Visit Infectious Disease Kendall Bell, DO [address] [place] [address] 04/28/2023 Office Visit Family Medicine Brian Domínguez MD [address] [place] [address] 05/05/2023 Office Visit Cardiology Sobia Brewster PA-C [address] [place] [address] 05/09/2023 Office Visit Gastroenterology Wendy Frias DO [address] [place] [address] Scheduled Procedures Name Priority Associated Diagnoses Date/Ti [...] 11/01/2021, Additional history exists GFR 08/10/2023 02/07/2023, 06/07/2022, 12/05/2022, Additional history exists Albumin/Creatinine Ratio 10/24/2023 023, 07/17/2022, 10/05/2020, Additional history exists CKD PHOS USE SMARTSET 51560 10/24/202310/05, 02/18/2022, 02/17/2022, Additional history exists TSH 10/24/2023 10/23/2022, 02/05, 09/24/2021, Additional history exists CKD HGB USE SMARTSET 77069 02/08/202402/07, 11/21/2022, 11/21/2022, Additional history exists Colonoscopy [...] this encounter Medical Devices Implanted Type Area Medicine Teacher Device Identifier Shelf Expiration Date Model / Serial / Lot Sut Steel 6 [id number] - [id number] Implanted:Qty: 1 on 02/15/2011 at OR [facility] [place] N/A: Chest DO NOT USE 07/21/2015 [id number] / / [id number] documented as of this encounter Visit Diagnoses Diagnosis Recurrent UTI Urinary tract infection, site not specified documented in this encounter Advance Directives Documents on File Type Date Recorded 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 No Code Status History Code Status Date [...] patient have Health Care Power of Senior Staff Accountant? No Full Code 02/01/2010 4:02 PM 02/02/2010 4:09 PM This order reflects the patients wishes and were consensually agreed upon. Question Answer Comments Discussion of Advance Directives occurred with: Not Discussed Does the patient have a Living Will? No Does the patient have Health Care Power of Senior Staff Accountant? No Healthcare Agents on File Name Relationship Healthcare Agent Relationshi p Communication Carolyn Ballard Adult Child Health Care Agent Care Teams Drill Sharpener Operator Relationship Specialty Start Date End Date Brian Domínguez MD [address] [facility] [place] [phone] PCP - General Family Medicine 07/16/17 documented as of this encounter
--- OUTSIDE RECORDS SUMMARY | 2023-05-17 12:15 | External Medical Summary | Summary of Care ---
Author Name Unknown Organization [facility] Address [address] [place] [address] Phone [phone] Care Team Providers Care Cabana Attendant Name Role Phone Brian Domínguez MD Primary Care Provider [phone]- [phone] Reason for Visit * Reason Onset Date Comments Advice 01/27/2023 Encounter Details Date Type Department Care Team Description 01/27/2023 Software Systems Analyst Telephone Family Practice [facility] [address] [place] [address] Nayla Bellamy, showcase maker Allergies Active Allergy Reactions Severity Noted Date Comments Propoxyphene Hcl Rash Low 10/29/2010 Fentanyl Diarrhea Low 04/26/2010 anxiety Methocarbamol Medium 10/05/2020 Other reaction(s): Delirium Methocarbamol Low 04/15/2007 Zolpidem Low 10/05/2020 Other reaction(s): Confusion documented as of this encounter (statuses as of 01/27/2023) Medications Medication Sig Dispensed Refills Start Date End Date Status ARIPiprazole (ABILIFY) 2 MG Tablet Take 1 Tablet by mouth in the morning. 0 6 Active venlafaxine XR (EFFEXOR XR) 150 MG [id number]:Dep ression Take 1 Cap by mouth daily. [...] 0 8 Active Blood Glucose Monitoring Suppl (SPHARESIO) w/Device KIT Use as directed. Use as [...] Respimat 2.5 MCG/ACT Inhalation Aerosol Solution (Tiotropium [place] Monohydrate) Inhale by mouth 2 Puffs in the morning. 4 g 3 2 Active Estradiol 0.1 MG/GM Vaginal Cream Administer into the vagina 1 g in the morning. 42.5 g 12 2 Active Diclofenac Sodium 1 % External Gel (Voltaren) Apply topically to affected area 2 times a day. 150 g 3 2 Active Vitamin D (Ergocalciferol) 1.25 MG (59778 UT) Oral Capsule (Drisdol)Indication s:Vitamin D deficiency [...] TWICE DAILY 60 Capsule 5 3 Active Nystatin 305746 UNIT/ML Mouth/Throat Suspension Swish and swallow 5 mL in the morning and 5 mL at noon and 5 mL in the evening and 5 mL before bedtime. For thrush.. 240 mL 1 3 Active Tamsulosin HCl 0.4 MG Oral [...] THE MORNING 90 Tablet 0 3 Active Vitamin C 500 MG Oral Tablet (Ascorbic Acid)Indications:Re current UTI TAKE 1 TABLET BY MOUTH TWICE DAILY 60 Tablet 0 3 Active Pantoprazole Sodium 40 [...] 90 Tablet 1 3 Active UltiCare Pen [place] 31G X 5 MM (Insulin Pen Needle) use TWICE DAILY 200 Each 3 3 Active Torsemide 20 MG Oral Tablet (Demadex)Indication s: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 MAY TAKE 1 ADDITIONAL TABLET NEEDED FOR SWELLING. 90 Tablet 1 3 Active Potassium Chloride Mag ER 20 MEQ Oral Tablet Extended Release (Klor-Con M20) TAKE 1 TABLET BY MOUTH EVERY MORNING - use when taking additional torsemide 30 Tablet 0 3 Active Methenamine Hippurate [...] bedtime 180 Tablet 3 3 Active Nystatin 674949 UNIT/GM External Powder (Nystop)Indications :Candidal intertrigo Apply [...] times daily 300 Strip 3 3 Active oxyCODONE HCl 5 MG Oral [...] 7 Tablet 0 3 02/04/20 23 Active Cefdinir 300 MG Oral Capsule (Omnicef)Indication s:UTI symptoms Take 1 Capsule by mouth in the morning and 1 Capsule before bedtime. For 10 days.. 20 Capsule 1 3 01/28/20 23 Discontinu ed(Medicat ion List Clean Up) Ciprofloxacin HCl 500 MG Oral Tablet (Cipro) Take 1 Tablet by mouth in the morning and 1 Tablet before bedtime. Do all this for 10 days. 20 Tablet 0 3 01/28/20 23 Discontinu ed(Adverse reaction) documented as of this encounter (statuses as of 01/27/2023) Active Problems Problem Noted Date Medical home [...] is giving this. 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 Anxiety 08/05/2017 Gvriaqo-Ibbow-Agrdi disease 06/27/2015 Last Assessment & Plan: Frequent [...] as of this encounter (statuses as of 01/27/2023) Resolved Problems Problem Noted Date Resolved Date [...] 10/31/201008/08 Acute coronary syndrome 10/30/2010 01/22/20 14 [place] Research Other*[id number] 02/02/2010 04/18/2014 Overview: [place] [facility], Dr Joel Kwon PI Obesity, morbid [...] as of this encounter (statuses as of 01/27/2023) Immunizations Name Administration Dates Next Due COVID-19 [...] Miscellaneous Notes * Telephone Encounter - DENG Plunkett - 01/27/2023 3:49 PM EDT Pt wants to speak to her clinical case manager, attempting to transfer. * Telephone Encounter - Nayla Bellamy RN - 01/27/2023 3:40 PM EDT Left detailed message on dao Walker VM from message from PCP. * Telephone Encounter - Brian Domínguez MD - 01/27/2023 3:04 PM EDT Would suggest stopping cipro. Can take zyrtec for the itching. Limited options for abx based on culture and sensitivities. Even though it is in the same class as cipro, can try levofloxacin as she has tolerated this well in the past. Sent erx to [facility] * Telephone Encounter - Nayla Bellamy RN - 01/27/2023 11:00 AM EDT CM Progress note Spoke with patients dao Leon who is reporting that Angelina is experiencing generalized itchingall over her body since being on Cipro for uti. Started the med on Friday. Itching started over the. There is no redness or rash present, no throat itching or tightness in chest/wheezing. Sheis wanting to know if she could try zyrtec? Reports Angelina is refusing to try anything such as anti itch cream or antihistamine, until reviewed with provider. Lashay PARRY is out of the office this week, will ask PCP for advice. Dr. Domínguez, Please advise, would you recommend changing antibiotic? Or try something for the itching? Thank you documented in this encounter Plan of Treatment Upcoming Encounters Date Type Specialty Care Team Description 02/17/2023 Pharmacy Pharmacy [facility] [address] [place] [address] 02/19/2023 Office Visit Gynecology Urology Nir Landa MD [address] [place] [address] Nurse Yury Fox [address] [place] [address] 03/03/2023 Telemedicine [facility] Lashay Blevins PA-C [address] [place] [address] [address] [place] [address] 04/09/2023 Office Visit Urology Alfredo Panda MD [facility] [address] [place] [id number] 04/23/2023 Office Visit Infectious Disease Kendall Bell, DO [address] [place] [address] 04/28/2023 Office Visit Family Medicine Brian Domínguez MD [address] [place] [address] 05/05/2023 Office Visit Cardiology Sobia Brewster PAAttilaC [address] [place] [address] 05/09/2023 Office Visit Gastroenterology Wendy Frias DO [address] [place] [address] Scheduled Procedures Name Priority Associated Diagnoses Date/Ti [...] 11/01/2021, Additional history exists GFR 06/06/2023 12/05/2022, 06/0 07/2022, 11/18/2022, Additional history exists Albumin/Creatinine Ratio 10/24/2023 023, 07/17/2022, 10/05/2020, Additional history exists CKD PHOS USE SMARTSET 65923 10/24/202310/05, 02/18/2022, 02/17/2022, Additional history exists TSH 10/24/2023 10/23/2022, 02/05, 09/24/2021, Additional history exists CKD HGB USE SMARTSET 40034 11/22/202311/21, 11/21/2022, 04/25/2022, Additional history exists Colonoscopy [...] this encounter Medical Devices Implanted Type Area Exterminator Helper Device Identifier Shelf Expiration Date Model / Serial / Lot Sut Steel 6 [id number] - [id number] Implanted:Qty: 1 on 02/15[place]2011 [place] [facility] [place] Chest DO NOT USE 07/21/2015 [id number] / / [id number] documented as of this encounter Advance Directives Documents on File Type Date Recorded 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 Question Answer Comments Discussion of Advance Directives occurred with: Patient Does the patient have a Living Will? No Does the patient have Health Care Power of Station Manager? No Code Status History Code Status [...] the patient have Health Care Power of Station Manager? No Full Code 02/01/2010 4:02 PM 02/02/2010 4:09 PM This order reflects the patients wishes and were consensually agreed upon. Question Answer Comments Discussion of Advance Directives occurred with: Not Discussed Does the patient have a Living Will? No Does the patient have Health Care Power of Station Manager? No Healthcare Agents on File Name Relationship Healthcare Agent Relationshi p Communication Carolyn Ballard Adult Child Health Care Agent Care Teams Cabana Attendant Relationship Specialty Start Date End Date Brian Domínguez MD [address] [place] [address] PCP - General Family Medicine 07/16/17 documented as of this encounter
--- OUTSIDE RECORDS SUMMARY | 2023-05-17 12:15 | External Medical Summary | Summary of Care ---
Author Name Unknown Organization [facility] Address [address] [place] [address] Phone [phone] Care Team Providers Care Bag Builder Name Role Phone Brian Domínguez MD Primary Care Provider [phone]- [phone] Reason for Visit * Reason Onset Date Comments case management 01/24/2023 Encounter Details Date Type Department Care Team Description 01/24/2023 Global Marketing Operations Manager Telephone Family [facility] [address] [place] [address] Nayla Bellamy, management rep Allergies Active Allergy Reactions Severity Noted Date Comments Propoxyphene Hcl Rash Low 10/29/2010 Fentanyl Diarrhea Low 04/26/2010 anxiety Methocarbamol Medium 10/05/2020 Other reaction(s): Delirium Methocarbamol Low 04/15/2007 Zolpidem Low 10/05/2020 Other reaction(s): Confusion documented as of this encounter (statuses as of 01/24/2023) Medications Medication Sig Dispensed Refills Start Date End Date Status ARIPiprazole (ABILIFY) 2 MG Tablet Take 1 Tablet by mouth in the morning. 0 2015 Active venlafaxine XR (EFFEXOR XR) 150 MG [id number]:Dep ression Take 1 Cap by mouth daily. [...] 0 11/18/2017 Active Blood Glucose Monitoring Suppl (Genetix Fusion VERIO) w/Device KIT Use as directed. Use [...] Respimat 2.5 MCG/ACT Inhalation Aerosol Solution (Tiotropium [place] Monohydrate) Inhale by mouth 2 Puffs in the morning. 4 g 3 04/25/2022 Active Estradiol 0.1 MG/GM Vaginal Cream Administer into the vagina 1 g in the morning. 42.5 g 12 05/07/2022 Active Diclofenac Sodium 1 % External Gel (Voltaren) Apply topically to affected area 2 times a day. 150 g 3 06/05/2022 Active Vitamin D (Ergocalciferol) 1.25 MG (67958 UT) Oral Capsule (Drisdol)Indication s:Vitamin D deficiency [...] TWICE DAILY 60 Capsule 5 08/22/2022 Active Nystatin 846155 UNIT/ML Mouth/Throat Suspension Swish and swallow 5 mL in the morning and 5 mL at noon and 5 mL in the evening and 5 mL before bedtime. For thrush.. 240 mL 1 09/05/2022 Active Tamsulosin HCl 0.4 MG Oral Capsule [...] THE MORNING 90 Tablet 0 11/19/2022 Active Vitamin C 500 MG Oral Tablet (Ascorbic Acid)Indications:Re current UTI TAKE 1 TABLET BY MOUTH TWICE DAILY 60 Tablet 0 11/19/2022 Active Pantoprazole Sodium 40 [...] ONCE DAILY 90 Tablet 1 12/19/2022 Active Cefdinir 300 MG Oral Capsule (Omnicef)Indication s:UTI symptoms Take 1 Capsule by mouth in the morning and 1 Capsule before bedtime. For 10 days.. 20 Capsule 1 12/20/2022 Active UltiCare Pen [place] 31G X 5 MM (Insulin Pen Needle) use TWICE DAILY 200 Each 3 12/23/2022 Active Torsemide 20 MG Oral Tablet (Demadex)Indication s:Atherosclerotic heart disease of [place] coronary artery with other forms of angina pectoris (HCC),Hypertensive heart disease with chronic diastolic congestive heart failure (HCC) TAKE 1 TABLET BY MOUTH EVERY MORNING. MAY TAKE 1 ADDITIONAL TABLET NEEDED FOR SWELLING. 90 Tablet 1 12/24/2022 Active clonazePAM 0.5 MG Oral Tablet (KlonoPIN)Indicatio ns:Bipolar I disorder, most recent episode depressed, moderate (HCC) TAKE ONE TABLET BY MOUTH THREE TIMES DAILY 90 Tablet 0 12/26/2022 Active Morphine Sulfate ER 15 MG Oral Tablet Extended Release (Ms Contin)Indications: Lumbar spondylosis Take 1 Tablet by mouth at bedtime as needed for Pain, Severe. 30 Tablet 0 12/26/2022 Active oxyCODONE HCl 5 MG Oral Tablet (Oxy IR)Indications:Lumb ar spondylosis Take 1 Tablet by mouth every 8 hours as needed (pain). 60 Tablet 0 12/26/2022 Active Potassium Chloride Mag ER 20 MEQ Oral Tablet Extended Release (Klor-Con M20) TAKE 1 TABLET BY MOUTH EVERY MORNING - use when taking additional torsemide 30 Tablet 0 12/25/2022 Active Methenamine Hippurate 1 GM Oral Tablet [...] bedtime 180 Tablet 3 01/16/2023 Active Nystatin 589792 UNIT/GM External Powder (Nystop)Indications :Candidal intertrigo Apply [...] times daily 300 Strip 3 01/16/2023 Active documented as of this encounter (statuses as of 01/24/2023) Active Problems Problem Noted Date Medical home patient encounter 3 Hypertensive heart and kidne y disease with chronic diastolic congestive heart failure and stage 3a chronic kidney disease 12/28/2021 Last Assessment & Plan: Euvolemic, BP stable EF 55% 09/25 GFR 69 02/25 -Continue Torsemide 20 mg BID, Spironolactone 25 mg BID, Tropol XL 50 mg daily Atherosclerotic heart diseas e of [place] coronary artery with other forms of angina pectoris 11/15/2021 Last Assessment & Plan: Stable. No angina -continue toprol, ASA and statin Seasonal allergies 11/15/2021 Recurrent UTI 10/07/2021 Last Assessment & Plan: Followed by urology Pt is supposed to be on methenamine--will need to clarify with dgt that she is giving this. 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/2014 group home current use of anticoagulant therapy 1 [...] as of this encounter (statuses as of 01/24/2023) Immunizations Name Administration Dates Next Due COVID-19 [...] Telephone Encounter - Nayla Bellamy RN - 01/24/2023 10:19 AM EDT CM Progress note S: daughter Carolyn calling in, she saw the UA results on the patients portal. She is asking for an antibiotic to be sent to the [facility]. She reports that Angelina is complaing of dysuria and seems more confused. States "this is how she gets when she has a uti". O: phone call follow up A: spoke with daughter P: Message to [facility] provider Lashay Brock for recommendations on results. documented in this encounter Plan of Treatment Upcoming Encounters Date Type Specialty Care Team Description 02/17/2023 Pharmacy Pharmacy [facility] [address] [place] [address] 02/19/2023 Office Visit Gynecology Urology Nir Landa MD [address] [place] [address] Nurse Yury Fox [address] [place] [address] 03/03/2023 Telemedicine [facility] Lashay Blevins PA-C [address] [place] [address] Beverly Lozoya, [facility] [address] [place] [address] 04/09/2023 Office Visit Urology Alfredo Panda MD [address] [place] [address] 04/23/2023 Office Visit Infectious Disease Kendall Bell, DO [address] [place] [address] 04/28/2023 Office Visit Family Medicine Brian Domínguez MD [address] [place] [address] 05/05/2023 Office Visit Cardiology Sobia Brewster PA-C [address] [place] [address] 05/09/2023 Office Visit Gastroenterology Wendy Frias DO [address] [place] [address] Scheduled Procedures Name Priority Associated Diagnoses Date/Ti [...] Additional history exists CKD PHOS USE SMARTSET 50641 10/24/202310/05, 02/18/2022, 02/17/2022, Additional history exists TSH 10/24/2023 10/23/2022, 0811/2021, 09/24/2021, Additional history exists CKD HGB USE SMARTSET 85568 11/22/202311/21, 11/21/2022, 04/25/2022, Additional history exists Colonoscopy [...] this encounter Medical Devices Implanted Type Area Water Control Station Engineer Device Identifier Shelf Expiration Date Model / Serial / Lot Sut Steel 6 [id number] - [id number] Implanted:Qty: 1 on 02/15/2011 at [place] [facility] [place] N/A: Chest DO NOT USE 07/21/2015 [id number] / / [id number] documented as of this encounter Advance Directives Documents on File Type Date Recorded Patient Trailer Steerer Expl 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 Question Answer Comments Discussion of Advance Directives occurred with: Patient Does the patient have a Living Will? No Does the patient have Health Care Power of Bandage Maker? No Code Status History Code Status Date [...] the patient have Health Care Power of Bandage Maker? No Full Code 02/01/2010 4:02 PM 02/02/2010 4:09 PM This order reflects the patients wishes and were consensually agreed upon. Question Answer Comments Discussion of Advance Directives occurred with: Not Discussed Does the patient have a Living Will? No Does the patient have Health Care Power of Bandage Maker? No Healthcare Agents on File Name Relationship Healthcare Agent [facility] Communication Carolyn Ballard Adult Child Health Care Agent Care Teams Bag Builder Relationship Specialty Start Date End Date Brian Domínguez MD [address] [place] [address] PCP - General Family Medicine 07/16/17 documented as of this encounter
--- OUTSIDE RECORDS SUMMARY | 2023-05-17 12:15 | External Medical Summary | Summary of Care ---
Author Name Unknown Organization [facility] Address [address] [place] [address] Phone [phone] Care Team Providers Care Antisqueak Applier Name Role Phone Brian Domínguez MD Primary Care Provider [phone]- [phone] Reason for Visit * Reason Onset Date Comments Advice 01/27/2023 Encounter Details Date Type Department Care Team Description 01/27/2023 Poultry Packer Telephone Family [facility] [address] [place] [address] Nayla Bellamy, supply chain assistant Allergies Active Allergy Reactions Severity Noted Date [...] Active venlafaxine XR (EFFEXOR XR) 150 MG [id number]:Dep ression Take 1 Cap by mouth daily. [...] 0 8 Active Blood Glucose Monitoring Suppl (ButtonIO) w/Device KIT Use as directed. Use as [...] Respimat 2.5 MCG/ACT Inhalation Aerosol Solution (Tiotropium [place] Monohydrate) Inhale by mouth 2 Puffs in the morning. 4 g 3 2 Active Estradiol 0.1 MG/GM Vaginal Cream Administer into the vagina 1 g in the morning. 42.5 g 12 2 Active Diclofenac Sodium 1 % External Gel (Voltaren) Apply topically to affected area 2 times a day. 150 g 3 2 Active Vitamin D (Ergocalciferol) 1.25 MG (58577 UT) Oral Capsule (Drisdol)Indication s:Vitamin D deficiency [...] DAILY 60 Capsule 5 3 Active Nystatin 367117 UNIT/ML Mouth/Throat Suspension Swish and swallow 5 [...] 90 Tablet 1 3 Active UltiCare Pen [place] 31G X 5 MM (Insulin Pen Needle) use TWICE DAILY 200 Each 3 3 Active Torsemide 20 MG Oral Tablet (Demadex)Indication s:Atherosclerotic heart disease of [place] coronary artery with other forms of angina [...] bedtime 180 Tablet 3 3 Active Nystatin 992339 UNIT/GM External Powder (Nystop)Indications :Candidal intertrigo Apply [...] mg daily Atherosclerotic heart diseas e of [place] coronary artery with other forms of angina pectoris 11/15/2021 Last Assessment & Plan: Stable. No angina -continue toprol, ASA and statin Seasonal allergies 11/15/2021 Recurrent UTI 10/07/2021 Last Assessment & Plan: Followed by urology Pt is supposed to be on methenamine--will need to clarify with dgt that she is giving this. 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/2014 long term acute care registered nurse current use of anticoagulant therapy 1 08/18/2005 [...] Telephone Encounter - Nayla Bellamy RN - 01/28/2023 9:54 AM EDT Spoke with patient. See 01/28/2023 encounter * Telephone Encounter - DENG Plunkett - 01/27/2023 3:49 PM EDT Pt wants to speak to her case aide, attempting to transfer. * Telephone Encounter - Nayla Bellamy RN - 01/27/2023 3:40 PM EDT Left detailed message on daughter Denise VM from message from PCP. * Telephone Encounter - Brian Domínguez MD - 01/27/2023 3:04 PM EDT Would suggest stopping cipro. Can take zyrtec for the itching. Limited options for abx based on culture and sensitivities. Even though it is in the same class as cipro, can try levofloxacin as she has tolerated this well in the past. Sent erx to [facility] * Telephone Encounter - Nayla Bellamy RN - 01/27/2023 11:00 AM EDT CM Progress note Spoke with patients dao Leon who is reporting that Angelina is experiencing generalized itchingall over her body since being on Cipro for uti. Started the med on Friday. Itching started over theweekend. There is no redness or rash present, [...] Team Description 02/17/2023 Pharmacy Pharmacy [facility] [address] [place] [address] 02/19/2023 Office Visit Gynecology Urology Nir Landa MD [address] [place] [address] Nurse Yury Fox [address] [place] [address] 03/03/2023 Telemedicine [facility] Lashay Blevins PA-Peter [address] [place] [address] [address] [place] [address] 04/09/2023 Office Visit Urology Alfredo Panda MD [address] [facility] [address] [place] [address] 04/23/2023 Office Visit Infectious Disease Kendall Bell, DO [address] [place] [address] 04/28/2023 Office Visit Family Medicine Brian Domínguez MD [address] [place] [address] 05/05/2023 Office Visit Cardiology Sobia Brewster PA-C [address] [place] [address] 05/09/2023 Office Visit Gastroenterology Altagracia Wendy ChaudhryDO [address] [place] [address] Scheduled Procedures Name Priority Associated Diagnoses Date/Ti [...] Additional history exists CKD PHOS USE SMARTSET 47205 10/24/202310/05, 02/18/2022, 02/17/2022, Additional history exists TSH 10/24/2023 10/23/2022, 02/05, 09/24/2021, Additional history exists CKD HGB USE SMARTSET 42724 11/22/202311/21, 11/21/2022, 04/25/2022, Additional history exists Colonoscopy [...] this encounter Medical Devices Implanted Type Area Licensed Practical Nurse Clinic Nurse Device Identifier Shelf Expiration Date Model / Serial / Lot Sut Steel 6 [id number] - [id number] Implanted:Qty: 1 on 02/15/2011 at OR [facility] N/A: Chest DO NOT USE 07/21/2015 [id number] / / [id number] documented as of this encounter Advance Directives Documents on File Type Date Recorded Patient Director Power 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 Question Answer Comments Discussion of Advance Directives occurred with: Patient Does the patient have a Living Will? No Does the patient have Health Care Power of Environmental Issues Instructor? No Code Status History Code Status Date [...] the patient have Health Care Power of Environmental Issues Instructor? No Full Code 02/01/2010 4:02 PM 02/02/2010 4:09 PM This order reflects the patients wishes and were consensually agreed upon. Question Answer Comments Discussion of Advance Directives occurred with: Not Discussed Does the patient have a Living Will? No Does the patient have Health Care Power of Environmental Issues Instructor? No Healthcare Agents on File Name Relationship Healthcare Agent [facility] Communication Carolyn Elio Adult Child Health Care Agent Care Teams Antisqueak Applier Relationship Specialty Start Date End Date Brian Domínguez MD [address] [place] [address] PCP - General Family Medicine 07/16/17 documented as of this encounter
--- OUTSIDE RECORDS SUMMARY | 2023-05-17 12:15 | External Medical Summary | Summary of Care ---
Author Name Unknown Organization [facility] Address [address] [place] [address] Phone [phone] Care Team Providers Care Head Inspector Name Role Phone Carmen Sifuentes MD Primary Care Provider [phone]- [phone] Reason for Referral * Medication Prior Authorization - Pending Review Specialty Diagnoses / Procedures Referred By Mitchell chavez Referred To Contact Diagnoses Lumbar spondylosis Carmen Sifuentes MD [address] [place] [address] Referral ID Status Reason Start Date Expiration Date V isits Requested Visits Authorized [id number] Pending Review 999 999 * Medication Prior Authorization - Pending Review Specialty Diagnoses / Procedures Referred By Mitchell chavez Referred To Contact Diagnoses Lumbar spondylosis Carmen Sifuentes MD [address] [place] [address] Referral ID Status Reason Start Date Expiration Date V isits Requested Visits Authorized [id number] Pending Review 999 999 Reason for Visit * Reason Onset Date Comments Medication Refill 01/27/2023 Encounter Details Date Type Department Care Team Description 01/27/2023 Refill [facility] [address] [place] [address] Carmen Sifuentes MD [address] [place] [address] Lumbar spondylosis; Bipolar I disorder, most recent episode depressed, moderate (HCC) Allergies Active Allergy Reactions Severity Noted Date [...] Active venlafaxine XR (EFFEXOR XR) 150 MG [id number]:Dep ression Take 1 Cap by mouth daily. [...] 0 8 Active Blood Glucose Monitoring Suppl (SparkBaseTOUCH VERIO) w/Device KIT Use as directed. Use [...] neuropathy, with long-term current use of insulin ([facility]) Inject 30 units under the skin twice daily 45 mL 3 2 Active Insulin Glargine Solostar 100 UNIT/ML Subcutaneous Solution Pen-injector (Basaglar KwikPen)Indications :Type 2 diabetes mellitus with diabetic neuropathy, with long-term current use of insulin ([facility]) Inject 30 units under the skin [...] Respimat 2.5 MCG/ACT Inhalation Aerosol Solution (Tiotropium [place] Monohydrate) Inhale by mouth 2 Puffs in the morning. 4 g 3 2 Active Estradiol 0.1 MG/GM Vaginal Cream Administer into the vagina 1 g in the morning. 42.5 g 12 2 Active Diclofenac Sodium 1 % External Gel (Voltaren) Apply topically to affected area 2 times a day. 150 g 3 2 Active Vitamin D (Ergocalciferol) 1.25 MG (86953 UT) Oral Capsule (Drisdol)Indication s:Vitamin D deficiency TAKE ONE CAPSULE BY MOUTH WEEKLY 12 Capsule 3 2 Active Benzonatate 100 MG Oral Capsule (Tessalon Perles) TAKE ONE CAPSULE BY MOUTH THREE TIMES DAILY NEEDED for cough. do not cut, crush or chew 50 Capsule 0 3 Active On-Q-ity Disposable Nebulizer Kit Use as directed 1 [...] DAILY 60 Capsule 5 3 Active Nystatin 031674 UNIT/ML Mouth/Throat Suspension Swish and swallow 5 [...] ONCE DAILY 90 Tablet 1 3 Active Cefdinir 300 MG Oral Capsule (Omnicef)Indication s:UTI symptoms Take 1 Capsule by mouth in the morning and 1 Capsule before bedtime. For 10 days.. 20 Capsule 1 3 Active UltiCare Pen [place] 31G X 5 MM (Insulin Pen Needle) use TWICE DAILY 200 Each 3 3 Active Torsemide 20 MG Oral Tablet (Demadex)Indication s:Atherosclerotic heart disease of [place] coronary artery with other forms of angina [...] bedtime 180 Tablet 3 3 Active Nystatin 117181 UNIT/GM External Powder (Nystop)Indications :Candidal intertrigo Apply [...] neuropathy, with long-term current use of insulin ([facility]) use to test blood sugar 3 times daily 300 Strip 3 3 Active Ciprofloxacin HCl 500 MG Oral Tablet (Cipro) Take 1 Tablet by mouth in the morning and 1 Tablet before bedtime. Do all this for 10 days. 20 Tablet 0 3 02/04/20 23 Active oxyCODONE HCl 5 MG Oral [...] TIMES DAILY 90 Tablet 0 3 Active clonazePAM 0.5 MG Oral Tablet (KlonoPIN)Indicatio ns:Bipolar I disorder, most recent episode depressed, moderate (HCC) TAKE ONE TABLET BY MOUTH THREE TIMES DAILY 90 Tablet 0 3 01/28/20 23 Discontinu ed(Refill) Morphine Sulfate ER 15 MG Oral Tablet Extended Release (Ms Contin)Indications: Lumbar spondylosis Take 1 Tablet by mouth at bedtime as needed for Pain, Severe. 30 Tablet 0 3 01/28/20 23 Discontinu ed(Refill) oxyCODONE HCl 5 MG Oral Tablet (Oxy IR)Indications:Lumb ar spondylosis Take 1 Tablet by mouth every 8 hours as needed (pain). 60 Tablet 0 3 01/28/20 23 Discontinu ed(Refill) documented as of this [...] mg daily Atherosclerotic heart diseas e of [place] coronary artery with other forms of angina pectoris 11/15/2021 Last Assessment & Plan: Stable. No angina -continue toprol, ASA and statin Seasonal allergies 11/15/2021 Recurrent UTI 10/07/2021 Last Assessment & Plan: Followed by urology Pt is supposed to be on methenamine--will need to clarify with dgt that she is giving this. 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 Anxiety 08/05/2017 Xyzxjxd-Jdocr-Cvwgr disease 06/27/2015 Last Assessment & Plan: Frequent [...] 05/06/2018 019 Atherosclerotic heart diseas e of [place] coronary artery with other forms of angina [...] 10/31/201008/08 Acute coronary syndrome 10/30/2010 01/22/20 14 ONSET Research Other*[id number] 02/02/2010 04/18/2014 Overview: [place] Registry, Dr Joel [...] 06/17/2006 01/21/2014 nursing home current use of anticoagulant therapy 1 [...] Telephone Encounter - Carmen Sifuentes MD - 01/27/2023 12:56 PM EDTSigned Prescriptions: Disp Refills oxyCODONE HCl 5 MG Oral Tablet (Oxy IR) 60 Tab*0 Sig: Take 1 Tablet by mouth every 8 hours as needed (pain).Authorizing Provider: CARMEN SIFUENTES Morphine Sulfate ER 15 MG Oral Tablet Exte*30 Tab*0 Sig: Take 1 Tablet by mouth at bedtime as needed for Pain, Cierra re.Authorizing Provider: CARMEN SIFUENTES clonazePAM 0.5 MG Oral Tablet (KlonoPIN) 90 Tab*0 Sig: TAKE ONE TABLET BY MOUTH THREE TIMES DAILYAuthorizing Provider: CARMEN SIFUENTES * Telephone Encounter - Tona Boogie [facility] - 01/27/2023 10:32 AM EDTPending Prescriptions: Disp Refills oxyCODONE HCl 5 MG Oral Tablet (Oxy IR) 60 Tab*0 Sig: Take 1 Tablet by mouth every 8 hours as needed (pain). Morphine Sulfate ER 15 MG Oral Tablet Exte*30 Tab*0 Sig: Take 1 Tablet by mouth at bedtime as needed for Pain, Severe. clonazePAM 0.5 MG Oral Tablet (KlonoPIN) 90 Tab*0 Sig: TAKE ONE TABLET BY MOUTH T HREE TIMES DAILY * Telephone Encounter - Tona Boogie [facility] - 01/27/2023 10:32 AM EDT I have reviewed the patients controlled substance dispensing history in the Prescription Drug Monitoring Program in compliance with the [facility] regulations before prescribing a controlled substance. PDMP checked on 01/27/2023. Pending Prescriptions: Disp Refills oxyCODONE HCl 5 MG Oral Tablet (Oxy IR) 60 Tab*0 Sig: Take 1 Tablet by mouth every 8 hours as needed (pain). Morphine Sulfate ER 15 MG Oral Tablet Ext*30 Tab*0 Sig: Take 1 Tablet by mouth at bedtime as needed for Pain, Severe. clonazePAM 0.5 MG Oral Tablet (KlonoPIN) 90 Tab*0 Sig: TAKE ONE TABLET BY MOUTH THREE TIMES DAILY Last Visit: 01/15/2023 (in office), 03/06/2022 (telemedicine) Next Visit: 04/28/2023 Date medication was last filled: 12/27, 12/27, 12/26 Date medication is due for refill: 01/25, 01/25, 01/24 [facility]acy: [id number] Is this request for a controlled substance? Yes and Urine Drug Screen Not completed Toxicology results: No results found. However, due to the size of the patient record, not all encounters were searched.Please check Results Review for a complete set of results. Please approve if appropriate. Thank you, Tona Boogie, Liat Clinical Pharmacist [facility] ([facility]) (formerly Telepharmacy) [phone] 01/27/2023, 10:32 AM * Telephone Encounter - RASHI Kramer Tech - 01/27/2023 9:37 AM EDT Patient is out of medication. Did you pend patient's preferred pharmacy and medication before forwarding?yes Pharmacy: [id number] Pending Prescriptions: Disp Refills oxyCODONE HCl 5 MG Oral Tablet (Oxy IR) 60 Tab*0 Sig: Take 1 Tablet by mouth every 8 hours as needed (pain). Morphine Sulfate ER 15 MG Oral Tablet Ext*30 Tab*0 Sig: Take 1 Tablet by mouth at bedtime as needed for Pain, Severe. clonazePAM 0.5 MG Oral Tablet (KlonoPIN) 90 Tab*0 Sig: TAKE ONE TABLET BY MOUTH THREE TIMES DAILY Last Visit: 01/15/2023 (in office), 03/06/2022 (telemedicine) Next Visit: 04/28/2023 If no future appointments scheduled, and last appointment is greater than a year ago, please schedule patient for a follow-up appointment Last date the medication was ordered: 12/26/2022 Is this request for a controlled substance?Yes, What was the last refill date 12/26/2022 w/ quantity 60 and dosage Take 1 Tablet by mouth every 8 hours as needed (pain)., and Urine Drug Screen Not completed Urine [...] Specialty Care Team Description 02/17/2023 Pharmacy Pharmacy [place], [address] [place] [address] 02/19/2023 Office Visit Gynecology Urology Nir Landa MD [address] [place] [address] [place] [address] Nurse Yury Fox [address] [place] [address] 03/03/2023 Telemedicine [facility] Lashay Blevins PA-C [address] [place] [address] Beverly Lozoya, [address] [place] [id number] 04/09/2023 Office Visit Urology Alfredo Panda MD [address] [place] [address] 04/23/2023 Office Visit Infectious Disease Kendall Bell, DO [address] [place], [place] [id number] 04/28/2023 Office Visit Family Medicine Carmen Sifuentes MD [address] [place] [address] 05/05/2023 Office Visit Cardiology Sobia Brewster PA-C [address] [place] [address] 05/09/2023 Office Visit Gastroenterology Wendy Frias, DO [address] [place] [address] Scheduled Procedures Name Priority Associated Diagnoses Date/Ti [...] 11/01/2021, Additional history exists GFR 06/06/2023 12/05/2022, 060 07/2022, 11/18/2022, Additional history exists Albumin/Creatinine Ratio 10/24/2023 023, 07/17/2022, 10/05/2020, Additional history exists CKD PHOS USE SMARTSET 34035 10/24/202310/05, 02/18/2022, 02/17/2022, Additional history exists TSH 10/24/2023 10/23/2022, 02/05, 09/24/2021, Additional history exists CKD HGB USE SMARTSET 57385 11/22/202311/21, 11/21/2022, 04/25/2022, Additional history exists Colonoscopy [...] this encounter Medical Devices Implanted Type Area Incoming Inspector Device Identifier Shelf Expiration Date Model / Serial / Lot Jenna Rojas 6 [id number] - [id number] Implanted:Qty: 1 on 02/15/[address] [facility] [place] [facility] N/A: Chest DO NOT USE 07/21/2015 [id number] / / [id number] documented as of this encounter Visit Diagnoses Diagnosis Lumbar spondylosis Lumbosacral spondylosis without myelopathy Bipolar I disorder, most recent episode depressed, moderate (HCC) Bipolar I disorder, most recent episode (or current) depressed, moderate documented in this encounter Advance Directives Documents on File Type Date Recorded Patient Parish Visitor Expl anation POLST 05/06/2018 POLST Latest Code [...] patient have Health Care Power of Supervisor [place]? No Code Status History Code Status Date [...] patient have Health Care Power of Supervisor [place]? No Full Code 02/01/2010 4:02 PM 02/02/2010 4:09 PM This order reflects the patients wishes and were consensually agreed upon. Question Answer Comments Discussion of Advance Directives occurred with: Not Discussed Does the patient have a Living Will? No Does the patient have Health Care Power of Supervisor [place]? No Healthcare Agents on File Name Relationship Healthcare Agent [employer] p Communication Carolyn Ballard Adult Child Health Care Agent Care Teams Head Inspector Relationship Specialty Start Date End Date Carmen Sifuentes MD [address] [place] [facility] [place] [address] PCP - General Family Medicine 07/16/17 documented as of this encounter
--- OUTSIDE RECORDS SUMMARY | 2023-05-17 12:15 | External Medical Summary | Summary of Care ---
Author Name Unknown Organization [facility] Address [address] [place] [address] Phone [phone] Care Team Providers Care Parimutuel Cashier Name Role Phone Brian Domínguez MD Primary Care Provider [phone]- [phone] Reason for Visit * Reason Comments case management Encounter Details Date Type Department Care Team Description 01/28/2023 Shipping SupportWedding Coordinator Practice [facility] [address] [facility] [place] [address] Nayla Bellamy, RN Medical home patient encounter* [...] Active venlafaxine XR (EFFEXOR XR) 150 MG [id number]:Dep ression Take 1 Cap by mouth daily. [...] 0 11/18/2017 Active Blood Glucose Monitoring Suppl ([employer] [...] Respimat 2.5 MCG/ACT Inhalation Aerosol Solution (Tiotropium [place] Monohydrate) Inhale by mouth 2 Puffs in the morning. 4 g 3 04/25/2022 Active Estradiol 0.1 MG/GM Vaginal Cream Administer into the vagina 1 g in the morning. 42.5 g 12 05/07/2022 Active Diclofenac Sodium 1 % External Gel (Voltaren) Apply topically to affected area 2 times a day. 150 g 3 06/05/2022 Active Vitamin D (Ergocalciferol) 1.25 MG (13862 UT) Oral Capsule (Drisdol)Indication s:Vitamin D deficiency [...] DAILY 60 Capsule 5 08/22/2022 Active Nystatin 620160 UNIT/ML Mouth/Throat Suspension Swish and swallow 5 [...] 90 Tablet 1 12/19/2022 Active UltiCare Pen [place] 31G X 5 MM (Insulin Pen Needle) use TWICE DAILY 200 Each 3 12/23/2022 Active Torsemide 20 MG Oral Tablet (Demadex)Indication s:Atherosclerotic heart disease of [place] coronary artery with other forms of angina pectoris (HCC),Hypertensive heart disease with chronic diastolic congestive heart failure (HCC) TAKE 1 TABLET BY MOUTH EVERY MORNING. MAY TAKE 1 ADDITIONAL TABLET NEEDED FOR SWELLING. 90 Tablet 1 12/24/2022 Active Potassium Chloride Mag ER 20 MEQ [...] bedtime 180 Tablet 3 01/16/2023 Active Nystatin 327887 UNIT/GM External Powder (Nystop)Indications :Candidal intertrigo Apply [...] times daily 300 Strip 3 01/16/2023 Active oxyCODONE HCl 5 MG Oral Tablet [...] 7 Tablet 0 01/27/2023 02/04/20 23 Active documented as of this encounter [...] mg daily Atherosclerotic heart diseas e of [place] coronary artery with other forms of angina pectoris 11/15/2021 Last Assessment & Plan: Stable. No angina -continue toprol, ASA and statin Seasonal allergies 11/15/2021 Recurrent UTI 10/07/2021 Last Assessment & Plan: Followed by urology Pt is supposed to be on methenamine--will need to clarify with dgt that she is giving this. 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 She reports that she did stop the cipro and tack picker her new antibiotic and got it started. She still c/o itching, but states she does not have any redness or rashes. She does have some zyrtec that she is going to try today as well. She reports her daughter Melinda is currentlyin the hospital. She feels the uti is "still the same" but that it usually takes O: phone call follow up A: Alert and oriented P: Reinforced monitoring and reporting and worsening itching, rash or concerning symptoms. documented in this encounter Plan of Treatment Upcoming Encounters Date Type Specialty Care Team Description 02/17/2023 Pharmacy Pharmacy [facility] [address] [place] [address] 02/19/2023 Office Visit Gynecology Urology Nir Landa MD [address] [place] [address] Nurse Yury Fox [address] [place] [address] 03/03/2023 Telemedicine [facility] Lashay Blevins PA-Peter [address] [place] [address] [address] [place] [id number] 04/09/2023 Office Visit Urology Alfredo Panda MD [address] [address] [place] [address] 04/23/2023 Office Visit Infectious Disease Kendall Bell, DO [address] [place] [address] 04/28/2023 Office Visit Family Medicine Brian Domínguez MD [address] [place] [address] 05/05/2023 Office Visit Cardiology Sobia Brewster PA-C [address] [place] [address] 05/09/2023 Office Visit Gastroenterology Altagracia Wendy ChaudhryDO [address] [place] [address] Scheduled Procedures Name Priority Associated Diagnoses Date/Ti [...] 11/01/2021, Additional history exists GFR 06/06/2023 12/05/2022, 07/2022, 11/18/2022, Additional history exists Albumin/Creatinine Ratio 10/24/2023 023, 07/17/2022, 10/05/2020, Additional history exists CKD PHOS USE SMARTSET 51932 10/24/202310/05, 02/18/2022, 02/17/2022, Additional history exists TSH 10/24/2023 10/23/2022, 02/05, 09/24/2021, Additional history exists CKD HGB USE SMARTSET 70265 11/22/202311/21, 11/21/2022, 04/25/2022, Additional history exists Colonoscopy [...] this encounter Medical Devices Implanted Type Area Bell Tier Device Identifier Shelf Expiration Date Model / Serial / Lot Sut Steel 6 [id number] - [id number] Implanted:Qty: 1 on 02/15/2011 at OR [facility] [place] N/A: Chest DO NOT USE 07/21/2015 [id number] / / [id number] documented as of this encounter Visit Diagnoses Diagnosis Medical home patient encounter- Primary Other specified examination documented in this encounter Advance Directives Documents on File Type Date Recorded Patient Eye Surgeon 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 Question Answer Comments Discussion of Advance Directives occurred with: Patient Does the patient have a Living Will? No Does the patient have Health Care Power of Medicare Compliance Auditor? No Code Status History Code Status Date [...] the patient have Health Care Power of Medicare Compliance Auditor? No Full Code 02/01/2010 4:02 PM 02/02/2010 4:09 PM This order reflects the patients wishes and were consensually agreed upon. Question Answer Comments Discussion of Advance Directives occurred with: Not Discussed Does the patient have a Living Will? No Does the patient have Health Care Power of Medicare Compliance Auditor? No Healthcare Agents on File Name Relationship Healthcare Agent [facility] Communication Carolyn Ballard Adult Child Health Care Agent Care Teams Parimutuel Cashier Relationship Specialty Start Date End Date Brian Domínguez MD [address] [place] [address] PCP - General Family Medicine 07/16/17 documented as of this encounter
--- OUTSIDE RECORDS SUMMARY | 2023-05-17 12:15 | External Medical Summary | Summary of Care ---
Author Name Unknown Organization [facility] Address [address] [place] [address] Phone [phone] Care Team Providers Care Insights Strategist Name Role Phone Carmen Sifuentes MD Primary Care Provider [phone]- [phone] Reason for Visit * Reason Comments eRx-Medication Refill Encounter Details Date Type Department Care Team Description 01/26/2023 Refill [facility] [address] [place] [address] Carmen Sifuentes MD [address] [place] [address] Allergies Active Allergy Reactions Severity [...] Active venlafaxine XR (EFFEXOR XR) 150 MG GU96Wufrbuyzrta:De pression Take 1 Cap by mouth daily. With food. 30 Cap 5 09/02/19 17 Active Additional Information Patient taking differently: 225 mgOral Daily(AM), With food.,Indications: Takes 225 mg total every morning with food (150 mg tab + 75 mg tab), Reported on 06/24/2022 Blood Glucose Monitoring Suppl (D-TakeCare GLUCOMETER) w/Device KITIndications:Unc ontrolled type 2 diabetes mellitus without complication, without long-term current use of insulin Use as directed. Use as directed once daily 1 Kit 0 11/19/19 18 Active Blood Glucose Monitoring Suppl ([employer]) w/Device KIT Use as directed. Use as [...] Respimat 2.5 MCG/ACT Inhalation Aerosol Solution (Tiotropium [place] Monohydrate) Inhale by mouth 2 Puffs in the morning. 4 g 3 04/25/20 22 Active Estradiol 0.1 MG/GM Vaginal Cream Administer into the vagina 1 g in the morning. 42.5 g 12 05/07/20 22 Active Diclofenac Sodium 1 % External Gel (Voltaren) Apply topically to affected area 2 times a day. 150 g 3 06/05/20 22 Active Vitamin D (Ergocalciferol) 1.25 MG (44259 UT) Oral Capsule (Drisdol)Indicatio ns:Vitamin D deficiency [...] MORNING 90 Tablet 0 11/20/19 23 Active Vitamin C 500 MG Oral Tablet (Ascorbic Acid)Indications:R ecurrent UTI TAKE 1 TABLET BY MOUTH TWICE DAILY 60 Tablet 0 11/20/19 23 Active Pantoprazole Sodium [...] Tablet 1 12/20/19 23 Active UltiCare Pen [place] 31G X 5 MM (Insulin Pen Needle) use TWICE DAILY 200 Each 12/24/19 23 Active Torsemide 20 MG Oral Tablet (Demadex)Indicatio ns:Atherosclerotic heart disease of [place] coronary artery with other forms of angina pectoris (HCC),Hypertensive heart disease with chronic diastolic congestive heart failure (HCC) TAKE 1 TABLET BY MOUTH EVERY MORNING. MAY TAKE 1 ADDITIONAL TABLET NEEDED FOR SWELLING. 90 Tablet 12/25/19 23 Active Methenamine Hippurate 1 GM Oral Tablet (Hiprex)Indication s:Recurrent UTI TAKE ONE TABLET BY MOUTH IN THE MORNING AND ONE BEFORE BEDTIME 60 Tablet 0 01/15/20 23 Active Spironolactone 50 MG Oral Tablet (Aldactone)Indicat ions:GONZALEZ (nonalcoholic steatohepatitis),P ortal hypertension (HCC),Chronic liver disease and cirrhosis (HCC),Portal hypertensive gastropathy (HCC) Take 1 tablet by mouth in the morning and before bedtime 180 Tablet 01/17/20 23 Active Nystatin 381339 UNIT/GM External Powder (Nystop)Indication s:Candidal intertrigo Apply [...] 300 Strip 3 01/17/20 23 Active Nystatin 805506 UNIT/ML Mouth/Throat Suspension SWISH AND SWALLOW 5ML IN THE MORNING AND 5ML AT NOON AND 5 ML IN THE EVENING AND 5ML BEFORE BEDTIME, FOR THRUSH 240 mL 1 01/29/20 23 Active Potassium Chloride Mag ER 20 MEQ Oral Tablet Extended Release TAKE 1 TABLET BY MOUTH EVERY MORNING. use when taking additional torsemide 30 Tablet 1 01/29/20 23 Active Nystatin 287062 UNIT/ML Mouth/Throat Suspension Swish and swallow 5 mL in the morning and 5 mL at noon and 5 mL in the evening and 5 mL before bedtime. For thrush.. 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 use when taking additional torsemideAuthorizing Provider: CARMEN SIFUENTES * Telephone Encounter - Maxim Burciaga, [facility] - 01/28/2023 11:01 AM EDT Pending Prescriptions: Disp Refills Nystatin 555465 UNIT/ML Mouth/Throat Suspe*240 mL 1 Sig: SWISH AND SWALLOW 5ML IN THE MORNING AND 5ML AT NOON AND 5 ML IN THE EVENING AND 5ML BEFORE BEDTIME, FOR THRUSH Potassium Chloride Mag ER 20 MEQ Oral Tab*30 Tab*1 Sig: TAKE 1 TABLET BY MOUTH EVERY MORNING. use when taking additional torsemide -------- * Telephone Encounter - Maxim Burciaga, [facility] - 01/28/2023 11:01 AM EDT Refill pharmacists currently not authorized to approve refills for this class of medication per refill protocol. Please approve if appropriate. Pending Prescriptions: Disp Refills Nystatin 405112 UNIT/ML Mouth/Throat Suspe*240 mL 1 Sig: SWISH AND SWALLOW 5ML IN THE MORNING AND 5ML AT NOON AND 5 ML IN THE EVENING AND 5ML BEFORE BEDTIME, FOR THRUSH Potassium Chloride Mag ER 20 MEQ Oral Tab*30 Tab*1 Sig: TAKE 1 TABLET BY MOUTH EVERY MORNING. use when taking additional torsemide 01/15/2023 (in office), 03/06/2022 (telemedicine) 04/28/2023 If no future appointments scheduled, and last appointment is greater than a year ago, please schedule patient for a follow-up appointment Last date the medication was ordered: 09/05/2022, 12/25/2022 Pharmacy: [id number] Is this request for a controlled substance? no Patient Phone Numbers Labs: Lab Results Component [...] AM HGBA1C 5.9 (H) 05/22/2020 01:24 PM Thank You, Maxim Burciaga, Pharm-D Clinical Pharmacist Telepharmacy 01/28/2023, 11:01 AM * Telephone Encounter - Interface, [facility] - 01/28/2023 10:51 AM EDT Pending Prescriptions: Disp Refills Nystatin 602287 UNIT/ML Mouth/Throat Suspe*240 mL 0 Sig: SWISH AND SWALLOW 5ML IN THE MORNING AND 5ML AT NOON AND 5 ML IN THE EVENING AND 5ML BEFORE BEDTIME, FOR THRUSH Potassium Chloride Mag ER 20 MEQ Oral Tab*30 Tab*0 Sig: TAKE 1 TABLET BY MOUTH EVERY MORNING.use when taking additional torsemide documented in this encounter Plan of Treatment Upcoming Encounters Date Type Specialty Care Team Description 02/17/2023 Pharmacy Pharmacy [facility] [address] [place] [address] 02/19/2023 Office Visit Gynecology Urology Nir Landa MD [address] [place] [address] Nurse Yury Fox [address] [place] [address] 03/03/2023 Telemedicine [facility] Lashay Blevins PA-Peter [address] [place] [address] [address] [place] [address] 04/09/2023 Office Visit Urology Alfredo Panda MD [address] [facility] [address] [place] [address] 04/23/2023 Office Visit Infectious Disease Kendall Bell, DO [address] [place] [address] 04/28/2023 Office Visit Family Medicine Carmen Sifuentes MD [address] [place] [address] 05/05/2023 Office Visit Cardiology Sobia Brewster PA-C [address] [place] [address] 05/09/2023 Office Visit Gastroenterology Altagracia Wendy ChaudhryDO [address] [place] [address] Scheduled Procedures Name Priority Associated Diagnoses Date/Ti [...] Additional history exists CKD PHOS USE SMARTSET 62277 10/24/202310/05, 02/18/2022, 02/17/2022, Additional history exists TSH 10/24/2023 10/23/2022, 02/05, 09/24/2021, Additional history exists CKD HGB USE SMARTSET 45976 11/22/202311/21, 11/21/2022, 04/25/2022, Additional history exists Colonoscopy [...] encounter Medical Devices Implanted Type Area Java Tech Device Identifier Shelf Expiration Date Model / Serial / Lot Sut Steel 6 M654g - [id number] Implanted:Qty: 1 on 02/15/2011 at [place] [facility] [place] N/A: Chest DO NOT USE 07/21/2015 [id number] / / [id number] documented as of this encounter Advance Directives Documents on File Type Date 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 Question Answer Comments Discussion of Advance Directives occurred with: Patient Does the patient have a Living Will? No Does the patient have Health Care Power of Sack Cleaner? No Code Status History Code Status Date [...] the patient have Health Care Power of Sack Cleaner? No Full Code 02/01/2010 4:02 PM 02/02/2010 4:09 PM This order reflects the patients wishes and were consensually agreed upon. Question Answer Comments Discussion of Advance Directives occurred with: Not Discussed Does the patient have a Living Will? No Does the patient have Health Care Power of Sack Cleaner? No Healthcare Agents on File Name Relationship Healthcare Agent [facility] p Communication Carolyn Ballard Adult Child Health Care Agent Care Teams Insights Strategist Relationship Specialty Start Date End Date Carmen Sifuentes MD [address] [place] [address] PCP - General Family Medicine 07/16/17 documented as of this encounter
--- OUTSIDE RECORDS SUMMARY | 2023-05-17 12:15 | External Medical Summary | Summary of Care ---
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 [...] 0 8 Active Blood Glucose Monitoring Suppl ([employer]) w/Device KIT Use as directed. Use as [...] Respimat 2.5 MCG/ACT Inhalation Aerosol Solution (Tiotropium [place] Monohydrate) Inhale by mouth 2 Puffs in the morning. 4 g 3 2 Active Estradiol 0.1 MG/GM Vaginal Cream Administer into the vagina 1 g in the morning. 42.5 g 12 2 Active Diclofenac Sodium 1 % External Gel (Voltaren) Apply topically to affected area 2 times a day. 150 g 3 2 Active Vitamin D (Ergocalciferol) 1.25 MG (87525 UT) Oral Capsule (Drisdol)Indication s:Vitamin D deficiency [...] DAILY 60 Capsule 5 3 Active Nystatin 695930 UNIT/ML Mouth/Throat Suspension Swish and swallow 5 [...] Tablet 1 3 Active UltiCare Pen [place] 31G X 5 MM (Insulin Pen Needle) use TWICE DAILY 200 Each 3 3 Active Torsemide 20 MG Oral Tablet (Demadex)Indication s:Atherosclerotic heart disease of [place] coronary artery with other forms of angina [...] bedtime 180 Tablet 3 3 Active Nystatin 310570 UNIT/GM External Powder (Nystop)Indications :Candidal intertrigo Apply [...] mg daily Atherosclerotic heart diseas e of [place] coronary artery with other forms of angina pectoris 11/15/2021 Last Assessment & Plan: Stable. No angina -continue toprol, ASA and statin Seasonal allergies 11/15/2021 Recurrent UTI 10/07/2021 Last Assessment & Plan: Followed by urology Pt is supposed to be on methenamine--will need to clarify with dgt that she is giving this. 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 * Telephone Encounter - [...] Care Team Description 02/17/2023 Pharmacy Pharmacy [facility] [address] [place] [address] 02/19/2023 Office Visit Gynecology Urology Nir Landa MD [address] [place] [address] Nurse Yury Fox [address] [place] [address] 03/03/2023 Telemedicine [facility] Lashay Blevins PA-C [address] [place] [address] [place] [address] 04/09/2023 Office Visit [facility]rology [facility] [address] [place] [id number] 04/23/2023 Office Visit Infectious Disease Kendall Bell, DO [address] [place] [address] 04/28/2023 Office Visit Family Medicine Brian Domínguez MD [address] [place] [address] 05/05/2023 Office Visit Cardiology Sobia Brewster PAAttilaC [address] [place] [address] 05/09/2023 Office Visit Gastroenterology Wendy Frias DO [address] [place] [address] Scheduled Procedures Name Priority Associated Diagnoses Date/Ti [...] Additional history exists CKD PHOS USE SMARTSET 87915 10/24/202310/05, 02/18/2022, 02/17/2022, Additional history exists TSH 10/24/2023 10/23/2022, 02/05, 09/24/2021, Additional history exists CKD HGB USE SMARTSET 15421 11/22/202311/21, 11/21/2022, 04/25/2022, Additional history exists Colonoscopy [...] encounter Medical Devices Implanted Type Area Dry Transfer Man Device Identifier Shelf Expiration Date Model / Serial / Lot Sut Steel 6 [id number] - [id number] Implanted:Qty: 1 on 02/15/2011 at [place] [facility] [place] N/A: Chest DO NOT USE 07/21/2015 M654G / / [id number] documented as of this encounter Advance Directives Documents on File Type Date Recorded 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 No Code Status History Code Status Date [...] the patient have Health Care Power of Data Virtualization Consultant? No Full Code 02/01/2010 4:02 PM 02/02/2010 4:09 PM This order reflects the patients wishes and were consensually agreed upon. Question Answer Comments Discussion of Advance Directives occurred with: Not Discussed Does the patient have a Living Will? No Does the patient have Health Care Power of Data Virtualization Consultant? No Healthcare Agents on File Name Relationship Healthcare Agent Relationshi p Communication Carolyn Ballard Adult Child Health Care Agent Care Teams Dairy Tester Relationship Specialty Start Date End Date Brian Domínguez MD [address] [place] [address] PCP - General Family Medicine 07/16/17 documented as of this encounter
--- OUTSIDE RECORDS SUMMARY | 2023-05-17 12:16 | External Medical Summary | Summary of Care ---
Author Name Unknown Organization [facility] Address [address] [place] [address] Phone [phone] Care Team Providers Care Crew Member Name Role Phone Brian Domínguez MD Primary Care Provider [phone]- [phone] Reason for Visit * Reason Comments [facility]: Telehealth Encounter Details Date Type Department Care Team Description 01/20/2023 Telemedicine [facility], [place] [address] [place] [address] Lashay Blevins PA-C [address] [place] [address] Beverly Lozoya [address] [place] [id number] Chronic cough*; Dysphagia, unspecified type; 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); Recurrent UTI; Bilateral leg edema Allergies Active Allergy Reactions Severity Noted Date Comments Propoxyphene Hcl Rash Low 10/29/2010 Fentanyl Diarrhea Low 04/26/2010 anxiety Methocarbamol Medium 10/05/2020 Other reaction(s): Delirium Methocarbamol Low 04/15/2007 Zolpidem Low 10/05/2020 Other reaction(s): Confusion documented as of this encounter (statuses as of 01/23/2023) Medications Medication Sig Dispensed Refills Start Date End Date Status ARIPiprazole (ABILIFY) 2 MG Tablet Take 1 Tablet by mouth in the morning. 0 2015 Active venlafaxine XR (EFFEXOR XR) 150 MG [id number]:Dep ression Take 1 Cap by mouth daily. With food. 30 Cap 5 09/02/2016 Active Additional Information Patient taking differently: 225 mgOral Daily(AM), With food.,Indications: Takes 225 mg total every morning with food (150 mg tab + 75 mg tab), Reported on 06/24/2022 Blood Glucose Monitoring Suppl ([employer] GLUCOMETER) w/Device KITIndications:Unco ntrolled type 2 diabetes mellitus without complication, without long-term current use of insulin Use as directed. Use as directed once daily 1 Kit 0 11/18/2017 Active Blood Glucose Monitoring Suppl (EQUISO VERIO) w/Device KIT Use as directed. Use as directed. 1 Kit 0 10/31/2018 Active Spacer/Aero-Holding Chambers WISAM Use with inhaler. Wheezing/bronchitis . 1 Device 0 04/08/2019 Active Asset [employer] Services[employer] Delica Lancets 33G MISC USE UP TO FOUR TIMES A DAY Dx:E11.4 100 Each 5 09/30/2019 Active Lancet Devices (Eliza CorporationTOUCH DELICA LANCING DEV) MISC Use four times [...] long-term current use of insulin ([facility]) Inject 30 units under the skin twice daily 45 mL 3 04/16/2022 Active Insulin Glargine Solostar 100 UNIT/ML Subcutaneous Solution Pen-injector (Teracentaglar KwikPen)Indications :Type 2 diabetes mellitus with diabetic neuropathy, with long-term current use of insulin ([facility]) Inject 30 units under the skin [...] 06/05/2022 Active Vitamin D (Ergocalciferol) 1.25 MG (74851 UT) Oral Capsule (Drisdol)Indication s:Vitamin D deficiency [...] DAILY 60 Capsule 5 08/22/2022 Active Nystatin 520957 UNIT/ML Mouth/Throat Suspension Swish and swallow 5 [...] before bedtime. For 10 days.. 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 MAY TAKE 1 ADDITIONAL TABLET NEEDED FOR SWELLING. 90 Tablet 12/24/2022 Active clonazePAM 0.5 MG Oral Tablet [...] bedtime 180 Tablet 3 01/16/2023 Active Nystatin 767671 UNIT/GM External Powder (Nystop)Indications :Candidal intertrigo Apply [...] long-term current use of insulin ([facility]) use to test blood sugar 3 times daily 300 Strip 3 01/16/2023 Active documented as of this encounter (statuses as of 01/23/2023) Active Problems Problem Noted Date Medical home patient encounter 3 Hypertensive heart and kidne y disease with chronic diastolic congestive heart failure and stage 3a chronic kidney disease 12/28/2021 Last Assessment & Plan: Euvolemic, BP stable EF 55% 09/25 GFR 69 02/25 -Continue Torsemide 20 mg BID, Spironolactone 25 mg BID, Tropol XL 50 mg daily Atherosclerotic heart diseas e of [place] coronary artery with other forms of angina pectoris 11/15/2021 Last Assessment & Plan: Stable. No angina -continue toprol, ASA and statin Seasonal allergies 11/15/2021 Recurrent UTI 10/07/2021 Last Assessment & Plan: Followed by urology Pt is supposed to be on methenamine--will need to clarify with dgt that she is giving this. 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 Anxiety 08/05/2017 Dnuphuz-Egcqp-Tcixe disease 06/27/2015 Last Assessment & Plan: Frequent [...] as of this encounter (statuses as of 01/23/2023) Resolved Problems Problem Noted Date Resolved Date [...] 05/06/2018 019 Atherosclerotic heart diseas e of [place] coronary artery with other forms of angina [...] 10/31/201008/08 Acute coronary syndrome 10/30/2010 01/22/20 14 [facility] Research Other*[id number] 02/02/2010 04/18/2014 Overview: [place] [facility], Dr Joel CASAS Obesity, morbid (more [...] as of this encounter (statuses as of 01/23/2023) Immunizations Name Administration Dates Next Due COVID-19 [...] Sign Reading Time Taken Comments Blood Pressure 140/70 01/20/2023 3:00 PM EDT Pulse 70 01/20/2023 3:00 PM EDT Temperature 36.1 C (97 F) 01/20/2023 3:00 PM EDT Respiratory Rate 18 01/20/2023 3:00 PM EDT Oxygen Saturation 96% 01/20/2023 3:00 PM EDT Inhaled Oxygen Concentration - - Weight - - Height - - Body Mass Index - - documented in this encounter Progress Notes * Beverly Lozoya [facility] Pipefitter Helper - 01/20/2023 3:00 PM EDT [facility] Pipefitter Helper Visit Date: 01/20/2023 Time: 3:00 PM Name: Angelina Ballard : 1950 Referral Source: Provider Source of Information: Patient Daughter participated via phone Spoken language: French Patient can read in French: Yes. Aircraft Designer needed: No. COVID-19 screening completed: Yes Vitals: Vital signs completed: Yes, vital signs within normal range. BP 140/70 (BP Site: Right Arm, BP Position: Sitting, BP Cuff Size: Regular) | Pulse 70 | Temp 36.1 C (97 F) | Resp 18 | SpO2 96% Condition Changes: Changes in health or social status since last visit: [facility] visit for return TMAT telehealth appt. Patient reports she has been to the ED for falls multiple times since last [facility] visit. The patient has new concerns since last visit: Yes, patient reports chest congestion and swelling of lower extremities Progress towards goals since last visit: Continues working toward goals - recent ED visit Patient's Goals of Care: 1. No more UTIs 2. No falls 3. No hospitalizations Medications: Medication review completed? No, Does the patient have barriers to medication adherence? No. Patient reports difficulty paying for medications or might in the future: No. Telehealth: This is a telehealth visit: Yes. Type of telehealth visit: Return/Routine Visit conducted with: Physician/AP Symptoms Surveys and Evaluations: MAHC10 completed this visit: Yes. Score is 4 or more? Yes, notified Provider/Flight Information Expediter Last flowsheet values for MAHC10: Age 65+: 1 (01/20/2023 4:00 PM) Diagnosis (3 or more co-existing): 1 (01/20/2023 4:00 PM) Prior history of falls within 3 months: 1 (01/20/2023 4:00 PM) Incontinence: 1 (01/20/2023 4:00 PM) Visual impairment: 0 (01/20/2023 4:00 PM) Impaired functional mobility: 1 (01/20/2023 4:00 PM) Environmental hazards: 1 (01/20/2023 4:00 PM) Poly Pharmacy (4 or more prescriptions - any type): 1 (01/20/2023 4:00 PM) Pain affecting level of function: 1 (01/20/2023 4:00 PM) Cognitive impairment: 0 (01/20/2023 4:00 PM) Score - a score of 4 or more is considered at risk for fallin (01/20/2023 4:00 PM) Heart Failure Checklist A "good day" for the patient looks like no SOB, no swelling Today is different than a "good day": No Patient describes sleep as Normal The patient has been asked to track the amount of fluid they drink: Yes. Describe how patient tracks fluid volume: Patient states "we're supposed to", but hasn't been tracking as of late There is an [facility] scale in the home: Yes. Troubleshooting the scale advised CG to turn off/unplug, then turn on again before leaving tonight Typically, the patient's meals look like Other, educated patient on avoiding canned/frozen/processed foods which contain excess sodium - choose fresh or frozen whole fruits/vegetables over canned. Avoid salty snacks, limit intake of soda (patient drinks diet, which has a higher sodium) Plan: Notified Provider/Flight Information Expediter of Other: edema and LLE pain Reinforced patient's three red flags by the care team Patient's 'Red Flags': 1. Fever 2. Increased sob 3. Increased edema or abd distention Follow Up: Patient encouraged to call the intake phone number for all urgent but not emergent issues. Scheduled to follow up with patient in as scheduled. [facility] Pipefitter Helper 01/20/2023 3:00 PM * Lashay Marin Vinod Johnston PA-C - 01/20/2023 3:00 PM EDT [facility] Provider Telemedicine Visit Date: 01/20/2023 Time: 2:56 PM Assessment/Plan: 1. Chronic cough - FLUORO SWALLOWING FUNCTION W VIDEO CINE 2. Dysphagia, unspecified type Rule out aspiration - FLUORO SWALLOWING FUNCTION W VIDEO CINE 3. 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) Stable 4. Recurrent UTI 5. Bilateral leg edema Has an upcoming appointment with lymphedema clinic Follow up plan: Will follow up at end of February. Strongly encouraged patient to follow up with lymphedema clinic. Edema has not responded well to increased diuretic use. She has a chronic cough and has had multiple negative CXR's. Cough doesn't respond to antibiotic use. She has seen Pulmonology inpast. She admits to having some choking when eating/drinking. Will order a swallowing study to ruleout aspiration. A total of 45 minutes was spent face to face via video-based telemedicine. Subjective Patient location: HOME. I was not in a hospital or clinic location. After connecting through [employer], patient was verified with two unique identifiers. Patient (or authorized legal outside energy sales representatives) was then informed that this was a Telemedicine visit and being conducted confidentially over secure lines. Methods to assure confidentiality were taken. Patient acknowledged consent and understanding of privacy and security of the Telemedicine visit. The patient agreed to participate. Reason for Visit: Follow-Up Current Concerns: Angelina Ballard is a 72 year old female seen today for a [facility] Telemedicine Provider Visit. Date of last known acute care visit: 01/15/23 with PCP Reason for last known acute care visit: Angelina has a history of recurrent UTI's and history of ESBL UTI. She has been treated with IV Meropenum in the past at home. She recently grew Proteus and was treated with Cefidnir. She was scheduled to see Urogynecology multiple times but has no showed the appointments. She was advised to use estrogen vaginal cream a couple times a week. She has had recurrent symptoms of chest congestion, andcough with green sputum. She has been treated with steroids and antibiotics multiple times.Multiple negative CXR's.She recently saw Pulmonology.PFT's and walking test was not suggestive of chronic lung disease. She was evaluated in [facility] on 12/26/22 s/p fall and 12/29/22 for abdominal pain. Radiographs were negative and CT scan of abdomen was negative. Today's concerns are: Patient states she is doing ok. She is still having discomfort on the left side of the abdomen. No changes in bowel movements. No nausea or vomiting. She recently took a course of Cefdinir for UTI symptoms and they resolved. She continues to have the persistent cough. She is noting that she is choking on food and liquids at times. No change in sputum characteristics or quantity. No increased [place].Lower extremity edema is not responding well to increased use of diuretics. She missed the appointment with lymphedema clinic but has a follow up in the next week. No skin changes noted to the heel region. BG has been improved and running mostly in the mid 100's. Appetite is fair. She has had increased urinary incontinence. She hasn't been using the estrogen vaginal cream. ROS: See HPI Objective Physical Exam: BP 140/70 (BP Site: Right Arm, BP Position: Sitting, BP Cuff Size: Regular) | Pulse 70 | Temp 36.1 C (97 F) | Resp 18 | SpO2 96% Previous Wts: Wt Readings from Last 5 Encounters: 11/26/22 112 kg (247 lb) 10/29/22 115.7 kg (255 lb) 10/23/22 114.3 kg (252 lb) 10/23/22 115.7 kg (255 lb) 09/19/22 115.7 kg (255 lb) Previous BPs: BP Readings from Last 5 Encounters: 01/20/23 140/70 01/15/23 110/70 12/20/22 136/80 12/13/22 110/68 11/27/22 118/74 Physical Exam Constitutional: General: She is not in acute distress. HENT: Head: Normocephalic and atraumatic. Mouth/Throat: Pharynx: Oropharynx is clear. Eyes: Extraocular Movements: Extraocular movements intact. Conjunctiva/sclera: Conjunctivae normal. Cardiovascular: Rate and Rhythm: Normal rate and regular rhythm. Heart sounds: Murmur heard. Pulmonary: Effort: Pulmonary effort is normal. No respiratory distress. Breath sounds: Normal breath sounds. Abdominal: General: Bowel sounds are normal. Palpations: Abdomen is soft. Musculoskeletal: Comments: Mild LE edema noted mostly to the left ankle region Neurological: General: No focal deficit present. Mental Status: She is alert and oriented to person, place, and time. Diagnostic Data Review: Hematology Lab Results Component Value Date/Time WBC AUTO - [facility] 8.59 11/21/2022 09:02 AM WBC AUTO - [facility] 5.58 04/25/2022 04:45 PM WBC AUTO - [facility] 3.71 (L) 03/01/2022 07:53 AM WBC AUTO - [facility] 4.80 12/14/2019 01:10 PM WBC AUTO - [facility] 6.35 11/16/2019 01:45 PM WBC AUTO - [facility] 4.84 07/08/2019 12:51 PM Lab Results Component Value Date/Time HGB - [facility] 11.8 (L) 11/21/2022 09:02 AM HGB - [facility] 10.7 (L) 04/25/2022 04:45 PM HGB - [facility] 7.9 (L) 03/01/2022 07:53 AM HGB - [facility] 10.7 (L) 12/14/2019 01:10 PM HGB - [facility] 11.6 (L) 11/16/2019 01:45 PM HGB - [facility] 9.9 (L) 07/08/2019 12:51 PM Lab Results Component Value Date/Time HCT - [facility] 37.5 11/21/2022 09:02 AM HCT - [facility] 35.9 (L) 04/25/2022 04:45 PM HCT - [facility] 25.6 (L) 03/01/2022 07:53 AM HCT - [facility] 35.4 (L) 12/14/2019 01:10 PM HCT - [facility] 36.7 11/16/2019 01:45 PM HCT - [facility] 32.6 (L) 07/08/2019 12:51 PM Lab Results Component Value Date/Time PLATELET AUTO - [facility] 117 (L) 11/21/2022 09:02 AM PLATELET AUTO - [facility] 150 04/25/2022 04:45 PM PLATELET AUTO - [facility] 169 03/01/2022 07:53 AM PLATELET AUTO - [facility] 132 (L) [...] Results Component Value Date/Time SODIUM - [facility] 131 (L) 12/05/2022 09:00 AM SODIUM - [facility] 127 (L) 11/18/2022 12:32 PM SODIUM - [facility] 133 (L) 07/18/2020 12:20 PM SODIUM - [facility] 129 (L) 05/22/2020 01:24 PM Lab Results Component Value Date/Time POTASSIUM - [facility] 4.2 12/05/2022 09:00 AM POTASSIUM - [facility] 4.2 11/18/2022 12:32 PM POTASSIUM - [facility] 4.6 07/18/2020 12:20 PM [...] Results Component Value Date/Time BUN - [facility] 14 12/05/2022 09:00 AM BUN - [facility] 10 11/18/2022 12:32 PM BUN - [facility] 9 10/23/2022 10:46 AM BUN - [facility] 8 07/18/2020 12:20 PM BUN - [facility] 8 05/22/2020 01:24 PM BUN - [facility] 9 12/14/2019 01:10 PM Lab Results Component Value Date/Time CREATININE - [facility] 1.1 (H) 12/05/2022 12:33 PM CREATININE - [facility] 1.1 (H) 12/05/2022 09:00 AM CREATININE - [facility] 1.0 11/18/2022 12:32 PM CREATININE - [facility] 1.0 07/18/2020 12:20 PM CREATININE - [facility] 0.9 05/22/2020 01:24 PM CREATININE - [facility] 0.8 12/14/2019 01:10 PM Lab Results Component Value Date/Time ESTIMATED GLOMERULAR FILTRATION RATE - [facility] 52 (L) 12/05/2022 12:33 PM ESTIMATED GLOMERULAR FILTRATION RATE - [facility] 54 (L) 12/05/2022 09:00 AM ESTIMATED GLOMERULAR FILTRATION RATE - [facility] 63 11/18/2022 12:32 PM ESTIMATED GLOMERULAR FILTRATION RATE - [facility] 59.5 [...] 2.74 10/23/2022 10:46 AM TSH - [facility] 2.54 02/28/2022 05:45 AM TSH - [facility] 1.47 05/22/2020 01:24 [...] 1 Kit 0 Blood Glucose Monitoring Suppl (Nugg-itUCH VERIO) w/Device KIT Use as directed. Use as directed. 1 Kit 0 Spacer/Aero-Holding Chambers WISAM Use with inhaler. Wheezing/bronchitis. 1 Device 0 Spring Lancets 33G MISC USE UP TO FOUR TIMES A DAY Dx:E11.4 100 Each 5 Lancet Devices (Nugg-itUCH DELICA LANCING DEV) MISC Use four times [...] Suspension Administer 2 Sprays into each nostril daily.9.9 mL 1 NovoFine 32G X 6 MM (NOVOFINE 32G PEN NEEDLE) using twice a day with levemir 100 Each 5 Nitroglycerin 0.4 MG Sublingual Tablet Sublingual (Nitrostat) Place under the tongue 1 Tablet every 5 minutes as needed for Pain, Chest. Max dose 3 tablets in 15 minutes 25 Tablet 5 Lactulose 10 GM/15ML Oral Solution (Constulose) TAKE 45 ML BY MOUTH TWICE DAILY DIRECTED 2700 mL 5 Budesonide-Formoterol Fumarate 160-4.5 MCG/ACT Inhalation Aerosol (Symbicort) Inhale by mouth 2Puffs in the morning AND 2 Puffs before [...] 2 times a day. 150 g 3 Vitamin D (Ergocalciferol) 1.25 MG (85421 UT) Oral Capsule (Drisdol) TAKE ONE CAPSULE BY MOUTH WEEKLY 12 Capsule 3 Benzonatate 100 MG Oral Capsule (Tessalon Perles) TAKE ONE CAPSULE BY MOUTH THREE TIMES DAILY NEEDED for cough. do not cut, crush or chew 50 Capsule 0 AIRS Disposable Nebulizer Kit Use as directed 1 Kit 0 Ipratropium-Albuterol 0.5-2.5 (3) MG/3ML Inhalation Solution (Duoneb) Inhale 3 mL via nebulizerin the morning and 3 mL at noon and 3 mL in the evening and 3 mL before bedtime. 360 mL 3 Trulicity 4.5 MG/0.5ML Subcutaneous Solution Pen-injector (Dulaglutide) INJECT 4.5 mg subcutaneously once per week 6 mL 3 Gabapentin 300 MG Oral Capsule (Neurontin) TAKE 1 CAPSULE BY MOUTH TWICE DAILY 60 Capsule 5 Nystatin 128937 UNIT/ML Mouth/Throat Suspension Swish and swallow 5 mL in the morning and 5 mL at noon and 5 mL in the evening and 5 mL before bedtime. For thrush.. 240 mL 1 Tamsulosin HCl 0.4 MG Oral Capsule (Flomax) Take 1 Capsule by mouth in the morning. Every morning.. 90 Capsule 3 lamoTRIgine 25 MG Oral Tablet (LaMICtal) Take 1 tablet by mouth in the morning for a total of 125mg, then 2 tablets by mouth in the evening every day metFORMIN HCl ER 500 MG Oral Tablet Extended Release 24 Hour (Glucophage XR) Take 1 Tablet by mouth daily with dinner. 30 Tablet 5 Famotidine 40 MG Oral Tablet (Pepcid) Take 1 Tablet by mouth in the morning. 90 Tablet 1 Albuterol Sulfate HFA 108 (90 Base) MCG/ACT Inhalation Aerosol Solution Use two puffs four times a day, as directed 18 g 3 Oxybutynin Chloride ER 10 MG Oral Tablet Extended Release 24 Hour (Ditropan XL) TAKE ONE TABLETBY MOUTH IN THE MORNING 90 Tablet 0 Vitamin C 500 MG Oral Tablet (Ascorbic Acid) TAKE 1 TABLET BY MOUTH TWICE DAILY 60 Tablet 0 Pantoprazole Sodium 40 MG Oral Tablet Delayed [...] HOURS NEEDED FOR NAUSEA 60 Tablet 5 Levothyroxine Sodium 88 MCG Oral Tablet (Levoxyl) take one tablet by mouth daily at least 30 minutes before breakfast and other medications 90 Tablet 3 Xifaxan 550 MG Oral Tablet (rifAXIMin) TAKE 1 TABLET BY MOUTH TWICE DAILY 60 Tablet 5 Montelukast Sodium 10 MG Oral Tablet (Singulair) TAKE 1 TABLET BY MOUTH ONCE DAILY 90 Tablet 1 Cefdinir 300 MG Oral Capsule (Omnicef) Take 1 Capsule by mouth in the morning and 1 Capsule before bedtime. For 10 days.. 20 Capsule 1 UltiCare Pen [place] 31G X 5 MM (Insulin Pen Needle) use TWICE DAILY 200 Each 3 Torsemide 20 MG Oral Tablet (Demadex) TAKE 1 TABLET BY MOUTH EVERY MORNING. MAY TAKE 1 ADDITIONAL TABLET NEEDED FOR SWELLING. 90 Tablet 1 clonazePAM 0.5 MG Oral Tablet (KlonoPIN) TAKE ONE TABLET BY MOUTH THREE TIMES DAILY 90 Tablet 0 Morphine Sulfate ER 15 MG Oral Tablet Extended Release (Ms Contin) Take 1 Tablet by mouth at bedtime as needed for Pain, Severe. 30 Tablet 0 oxyCODONE HCl 5 MG Oral Tablet (Oxy IR) Take 1 Tablet by mouth every 8 hours as needed (pain). 60 Tablet 0 Potassium Chloride Mag ER 20 MEQ Oral Tablet Extended Release (Klor-Con M20) TAKE 1 TABLET BY MOUTH EVERY MORNING - use when taking additional torsemide 30 Tablet 0 Methenamine Hippurate 1 GM Oral Tablet (Hiprex) TAKE ONE TABLET BY MOUTH IN THE MORNING AND ONEBEFORE BEDTIME 60 Tablet 0 Spironolactone 50 MG Oral Tablet (Aldactone) Take 1 tablet by mouth in the morning and before bedtime 180 Tablet 3 Nystatin 096439 UNIT/GM External Powder (Nystop) Apply topically to affected area 3 times a day. Apply to right breast until rash resolved. 30 g 0 Sucralfate 1 GM Oral Tablet (Carafate) TAKE 1 TABLET BY MOUTH EVERY MORNING 90 Tablet 0 OneTouch Verio In Vitro Strip (Glucose Blood) use to test blood sugar 3 times daily 300 Strip 3 No current facility-administered medications for this visit. Mobility Evaluation: MACH10 Assessment: Assistive Devices Used in the Home: Walker (standard or rollator) Recent Falls: Falls in the last 6 months: No SDoH: DME (Durable Medical Equipment) needs Laceworker Services / Assistance with ADLs and Self-Care Routine Transportation Urgent Transportation Social Isolation Behavioral Health needs Lashay Johnston PA-C 2:56 PM *Communication sent to PCP (via [employer] if [facility]), Population Health Care Team members, relevant Specialty Care Physicians* documented in this encounter Plan of Treatment Upcoming Encounters Date Type Specialty Care Team Description 02/17/2023 Pharmacy Pharmacy [facility] [address] [place] [address] 02/19/2023 Office Visit Gynecology Urology Nir Landa MD [address] [place] [address] Nurse Yury Fox [address] [place], [place] [address] 03/03/2023 Telemedicine [facility] Lashay Blevins PA-C [address] [place] [address] [address] [place] [id number] 04/09/2023 Office Visit [facility]anda [facility] [address] [facility] [address] [place] [address] 04/23/2023 Office Visit Infectious Disease Kendall Bell, DO [address] [place] [address] 04/28/2023 Office Visit Family Medicine Brian Domínguez MD [address] [place] [address] 05/05/2023 Office Visit Cardiology Sobia Brewster PAAttilaC [address] [place] [address] 05/09/2023 Office Visit Gastroenterology Suvock, Wendy T, DO [address] [place] [address] Scheduled Orders Name Type Priority Associated Diagnoses Orde r Schedule FLUORO SWALLOWING FUNCTION W VIDEO CINE Medical Imaging Routine Chronic cough Dysphagia, unspecified type Ordered: 01/22/2023 Scheduled Procedures Name Priority Associated Diagnoses Date/Ti [...] Additional history exists CKD PHOS USE SMARTSET 54783 10/24/2023 04/03/2023, 02/18/2022, 02/17/2022, Additional history exists TSH 10/24/2023 10/23/2022, 02/05, 09/24/2021, Additional history exists CKD HGB USE SMARTSET 87379 11/22/202311/21, 11/21/2022, 04/25/2022, Additional history exists Colonoscopy [...] this encounter Medical Devices Implanted Type Area Lab Aid Device Identifier Shelf Expiration Date Model / Serial / Lot Sut Steel 6 [id number] - [id number] Implanted:Qty: 1 on 02/15/2011 at OR [facility] N/A: Chest DO NOT USE 07/21/2015 [id number] / / [id number] documented as of this encounter Visit Diagnoses Diagnosis Chronic cough- Primary Cough Dysphagia, unspecified type 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) Recurrent UTI Urinary tract infection, site not specified Bilateral leg edema Edema documented in this encounter Advance Directives Documents on File Type Date Recorded Patient Erecting Engineer Expl anation POL 05/06/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 Question Answer Comments Discussion of Advance Directives occurred with: Patient Does the patient have a Living Will? No Does the patient have Health Care Power of [place] Keeper? No Code Status History Code Status Date [...] the patient have Health Care Power of Tavern Keeper? No Full Code 02/01/2010 4:02 PM 02/02/2010 4:09 PM This order reflects the patients wishes and were consensually agreed upon. Question Answer Comments Discussion of Advance Directives occurred with: Not Discussed Does the patient have a Living Will? No Does the patient have Health Care Power of Tavern Keeper? No Healthcare Agents on File Name Relationship Healthcare Agent [facility] Communication Carolyn Ballard Adult Child Health Care Agent Care Teams Crew Member Relationship Specialty Start Date End Date Brian Domínguez MD [address] [place] [address] PCP - General Family Medicine 07/16/17 documented as of this encounter
--- OUTSIDE RECORDS SUMMARY | 2023-05-17 12:16 | External Medical Summary | Summary of Care ---
Author Name Unknown Organization [facility] Address [address] [place] [address] Phone [phone] Care Team Providers Care Canvas Marker Name Role Phone Brian Domínguez MD Primary Care Provider [phone]- [phone] Reason for Visit * Reason Comments Outpatient Testing Encounter Details Date Type Department Care Team Description 01/22/2023 Laboratory Laboratory, [address] [address] [address], Specimen Drop Off [address] [address] Recurrent UTI; UTI symptoms Allergies Active Allergy Reactions Severity Noted Date Comments Propoxyphene Hcl Rash Low 10/29/2010 Fentanyl Diarrhea Low 04/26/2010 anxiety Methocarbamol Medium 10/05/2020 Other reaction(s): Delirium Methocarbamol Low 04/15/2007 Zolpidem Low 10/05/2020 Other reaction(s): Confusion documented as of this encounter (statuses as of 01/22/2023) Medications Medication Sig Dispensed Refills Start Date End Date Status ARIPiprazole (ABILIFY) 2 MG Tablet Take 1 Tablet by mouth in the morning. 0 2015 Active venlafaxine XR (EFFEXOR XR) 150 MG [id number]:Dep ression Take 1 Cap by mouth daily. With food. 30 Cap 5 09/02/2016 Active Additional Information Patient taking differently: 225 mgOral Daily(AM), With food.,Indications: Takes 225 mg total every morning with food (150 mg tab + 75 mg tab), Reported on 06/24/2022 Blood Glucose Monitoring Suppl ([employer] Interactive GLUCOMETER) w/Device KITIndications:Unco ntrolled type 2 diabetes mellitus without complication, without long-term current use of insulin Use as directed. Use as directed once daily 1 Kit 0 11/18/2017 Active Blood Glucose Monitoring Suppl ([employer]) w/Device KIT Use as directed. Use as directed. 1 Kit 0 10/31/2018 Active Spacer/Aero-Holding Chambers WISAM Use with inhaler. Wheezing/bronchitis . 1 Device 0 04/08/2019 Active [employer] Lancets 33G MISC USE UP TO FOUR TIMES A DAY Dx:E11.4 100 Each 5 09/30/2019 Active Lancet Devices (SlimTraderUCH DELICA LANCING DEV) MISC Use four times [...] BY MOUTH TWICE DAILY DIRECTED 2700 mL 10/04/2021 Active Budesonide-Formoter ol Fumarate 160-4.5 MCG/ACT [...] Respimat 2.5 MCG/ACT Inhalation Aerosol Solution (Tiotropium [place] Monohydrate) Inhale by mouth 2 Puffs in the morning. 4 g 3 04/25/2022 Active Estradiol 0.1 MG/GM Vaginal Cream Administer into the vagina 1 g in the morning. 42.5 g 12 05/07/2022 Active Diclofenac Sodium 1 % External Gel (Voltaren) Apply topically to affected area 2 times a day. 150 g 3 06/05/2022 Active Vitamin D (Ergocalciferol) 1.25 MG (01310 UT) Oral Capsule (Drisdol)Indication s:Vitamin D deficiency [...] DAILY 60 Capsule 5 08/22/2022 Active Nystatin 581741 UNIT/ML Mouth/Throat Suspension Swish and swallow 5 [...] 8 HOURS NEEDED FOR NAUSEA 60 Tablet 12/09/2022 Active Levothyroxine Sodium 88 MCG Oral Tablet (Levoxyl)Indication s:Hypothyroidism take one tablet by mouth daily at least 30 minutes before breakfast and other medications 90 Tablet 12/10/2022 Active Xifaxan 550 MG Oral Tablet (rifAXIMin)Indicati ons:GONZALEZ (nonalcoholic steatohepatitis),Ch ronic liver disease and cirrhosis (HCC),Hepatic encephalopathy (HCC) TAKE 1 TABLET BY MOUTH TWICE DAILY 60 Tablet 12/16/2022 Active Montelukast Sodium 10 MG Oral Tablet (Singulair)Indicati ons:Nasal sinus congestion,PND (post-nasal drip) TAKE 1 TABLET BY MOUTH ONCE DAILY 90 Tablet 12/19/2022 Active Cefdinir 300 MG Oral Capsule (Omnicef)Indication s:UTI symptoms Take 1 Capsule by mouth in the morning and 1 Capsule before bedtime. For 10 days.. 20 Capsule 12/20/2022 Active UltiCare Pen [place] 31G X 5 MM (Insulin Pen Needle) use TWICE DAILY 200 Each 12/23/2022 Active Torsemide 20 MG Oral Tablet (Demadex)Indication s:Atherosclerotic heart disease of [place] coronary artery with other forms of [...] bedtime 180 Tablet 3 01/16/2023 Active Nystatin 788249 UNIT/GM External Powder (Nystop)Indications :Candidal intertrigo Apply [...] as of this encounter (statuses as of 01/22/2023) Active Problems Problem Noted Date Medical home patient encounter 3 Hypertensive heart and kidne y disease with chronic diastolic congestive heart failure and stage 3a chronic kidney disease 12/28/2021 Last Assessment & Plan: Euvolemic, BP stable EF 55% 09/25 GFR 69 02/25 -Continue Torsemide 20 mg BID, Spironolactone 25 mg BID, Tropol XL 50 mg daily Atherosclerotic heart diseas e of [place] coronary artery with other forms of angina pectoris 11/15/2021 Last Assessment & Plan: Stable. No angina -continue toprol, ASA and statin Seasonal allergies 11/15/2021 Recurrent UTI 10/07/2021 Last Assessment & Plan: Followed by urology Pt is supposed to be on methenamine--will need to clarify with dgt that she is giving this. 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 Anxiety 08/05/2017 Xicqeqe-Pvqab-Jluch disease 06/27/2015 Last Assessment & Plan: Frequent [...] as of this encounter (statuses as of 01/22/2023) Resolved Problems Problem Noted Date Resolved Date [...] 05/06/2018 019 Atherosclerotic heart diseas e of [place] coronary artery with other forms of [...] 10/31/201008/08 Acute coronary syndrome 10/30/2010 01/22/20 14 [place] Research Other*[id number] 02/02/2010 04/18/2014 Overview: [facility], Dr Joel [...] as of this encounter (statuses as of 01/22/2023) Immunizations Name Administration Dates Next Due COVID-19 [...] Specialty Care Team Description 02/17/2023 Pharmacy [facility]acy [facility] [address] [facility] [place] [address] 02/19/2023 Office Visit Gynecology Urology Nir Landa MD [address] [place] [address] Nurse Yury Fox [address] [place] [address] 03/03/2023 Telemedicine [facility] Lashay Blevins PA-C [address] [place] [address] Beverly Lozoya, [address] [place] [address] 04/09/2023 Office Visit Urology Alfredo Panda MD [address] [facility] [address] [place], [place] [phone] 04/23/2023 Office Visit Infectious Disease Kendall Bell, DO [address] [place] [address] 04/28/2023 Office Visit Family Medicine Brian Domínguez MD [address] [place] [address] 05/05/2023 Office Visit Cardiology Sobia Brewster PA-C [address] [place] [address] 05/09/2023 Office Visit Gastroenterology Wendy Frias DO [address] [place] [address] Pending Results Name Type Priority Associated Diagnoses Date /Time CULTURE, URINE, QUANTITATIVE Lab Routine Recurrent UTI UTI symptoms 01/22/2023 10:49 AM EDT Scheduled Procedures Name Priority Associated Diagnoses Date/Ti me COLONOSCOPY FLEXIBLE PROXIMA L DIAGNOSTIC Recall Special screening for malignant neoplasms, colon Health Maintenance Due Date Last Done Comments DXA Scan 1949 Cologuard 1994 Fecal Occult Blood Test 1994 Sigmoidoscopy 1994 Hepatitis B (1 of 3 - Risk 3-dose series) 2009 Mammogram 07/04/2011 07/04/2010 Zoster Vaccines (2 of 3) 10/04/2016 08/09/2016, 11/03/2016 Depression, Most Recent Score >= 10 (will [...] Additional history exists CKD PHOS USE SMARTSET 35076 10/24/2023 0403/2023, 02/18/2022, 02/17/2022, Additional history exists TSH 10/24/2023 10/23/2022, 02/05, 09/24/2021, Additional history exists CKD HGB USE SMARTSET 10241 11/22/202311/21, 11/21/2022, 04/25/2022, Additional history exists Colonoscopy [...] this encounter Medical Devices Implanted Type Area Bark Peeler Device Identifier Shelf Expiration Date Model / Serial / Lot Sut Steel 6 [id number] - [id number] [place]ed:[place] 1 [place] [facility] [place] Chest DO NOT USE 07/21/2015 [id number] / / [id number] documented as of this encounter Visit Diagnoses Diagnosis Recurrent UTI Urinary tract infection, site not specified UTI symptoms Other symptoms involving urinary system documented in this encounter Advance Directives Documents on File Type Date Recorded Patient Physical Education Teacher Expl anation POLST 05/06/2018 POLST Latest [...] the patient have Health Care Power of Coke Handling Supervisor? No Code Status History Code Status [...] the patient have Health Care Power of Coke Handling Supervisor? No Full Code 02/01/2010 4:02 PM 02/02/2010 4:09 PM This order reflects the patients wishes and were consensually agreed upon. Question Answer Comments Discussion of Advance Directives occurred with: Not Discussed Does the patient have a Living Will? No Does the patient have Health Care Power of Coke Handling Supervisor? No Healthcare Agents on File Name Relationship Healthcare Agent Relationshi p Communication Carolyn Ballard Adult Child Health Care Agent Care Teams Canvas Marker Relationship Specialty Start Date End Date Brian Domínguez MD [address] [place] [address] PCP - General Family Medicine 07/16/17 documented as of this encounter
--- OUTSIDE RECORDS SUMMARY | 2023-05-17 12:16 | External Medical Summary | Summary of Care ---
Author Name Unknown Organization [facility] Address [address] [place] [address] Phone [phone] Care Team Providers Care Garnisher Name Role Phone Brian Domínguez MD Primary Care Provider [phone]- [phone] Reason for Visit * Reason Comments eRx-Medication Refill Encounter Details Date Type Department Care Team Description 01/16/2023 Refill [facility] [address] [place] [address] Esther Bernard PA-C [address] [place] [address] Gastroesophageal reflux disease with esophagitis without hemorrhage Allergies Active Allergy Reactions Severity Noted Date Comments Propoxyphene Hcl Rash Low 10/29/2010 Fentanyl Diarrhea Low 04/26/2010 anxiety Methocarbamol Medium 10/05/2020 Other reaction(s): Delirium Methocarbamol Low 04/15/2007 Zolpidem Low 10/05/2020 Other reaction(s): Confusion documented as of this encounter (statuses as of 01/17/2023) Medications Medication Sig Dispensed Refills Start Date End Date Status ARIPiprazole (ABILIFY) 2 MG Tablet Take 1 Tablet by mouth in the morning. 0 07/11/19 16 Active venlafaxine XR (EFFEXOR XR) 150 MG BQ27Nedszltikce:De pression Take 1 Cap by mouth daily. [...] 11/19/19 18 Active Blood Glucose Monitoring Suppl ([employer] MINUTE [employer]WORK[employer]) w/Device KIT Use as directed. Use as directed. 1 Kit 0 11/01/19 19 Active Spacer/Aero-Holdin g Chambers WISAM Use with inhaler. Wheezing/bronchiti s. 1 Device 0 04/08/20 19 Active [employer] Delica Lancets 33G MISC USE UP TO FOUR TIMES A DAY Dx:E11.4 100 Each 5 09/30/19 20 Active Lancet Devices (Indeed DELICA LANCING DEV) MISC Use four times [...] Respimat 2.5 MCG/ACT Inhalation Aerosol Solution (Tiotropium [place] Monohydrate) Inhale by mouth 2 Puffs in the morning. 4 g 3 04/25/20 22 Active Estradiol 0.1 MG/GM Vaginal Cream Administer into the vagina 1 g in the morning. 42.5 g 12 05/07/20 22 Active Diclofenac Sodium 1 % External Gel (Voltaren) Apply topically to affected area 2 times a day. 150 g 3 06/05/20 22 Active Vitamin D (Ergocalciferol) 1.25 MG (30845 UT) Oral Capsule (Drisdol)Indicatio ns:Vitamin D deficiency [...] DAILY 60 Capsule 5 08/22/19 23 Active Nystatin 342904 UNIT/ML Mouth/Throat Suspension Swish and swallow 5 mL in the morning and 5 mL at noon and 5 mL in the evening and 5 mL before bedtime. For thrush.. 240 mL 1 09/06/19 23 Active Tamsulosin HCl 0.4 MG Oral [...] TABLET BY MOUTH ONCE DAILY 90 Tablet 12/20/19 23 Active Cefdinir 300 MG Oral Capsule (Omnicef)Indicatio ns:UTI symptoms Take 1 Capsule by mouth in the morning and 1 Capsule before bedtime. For 10 days.. 20 Capsule 12/21/19 23 Active UltiCare Pen [place] 31G X 5 MM (Insulin Pen Needle) use TWICE DAILY 200 Each 12/24/19 23 Active Torsemide 20 MG Oral Tablet (Demadex)Indicatio ns:Atherosclerotic heart disease of [place] coronary artery with other forms of angina pectoris (HCC),Hypertensive heart disease with chronic diastolic congestive heart failure (HCC) TAKE 1 TABLET BY MOUTH EVERY MORNING. MAY TAKE 1 ADDITIONAL TABLET NEEDED FOR SWELLING. 90 Tablet 12/25/19 23 Active clonazePAM 0.5 MG Oral Tablet (KlonoPIN)Indicati ons:Bipolar I disorder, most recent episode depressed, moderate (HCC) TAKE ONE TABLET BY MOUTH THREE TIMES DAILY 90 Tablet 0 12/27/19 23 Active Morphine Sulfate ER 15 MG Oral Tablet Extended Release (Ms Contin)Indications :Lumbar spondylosis Take 1 Tablet by mouth at bedtime as needed for Pain, Severe. 30 Tablet 0 12/27/19 23 Active oxyCODONE HCl 5 MG Oral Tablet (Oxy IR)Indications:Lum bar spondylosis Take 1 Tablet by mouth every 8 hours as needed (pain). 60 Tablet 0 12/27/19 23 Active Potassium Chloride Mag ER 20 MEQ Oral Tablet Extended Release (Klor-Con M20) TAKE 1 TABLET BY MOUTH EVERY MORNING - use when taking additional torsemide 30 Tablet 0 12/26/19 23 Active Methenamine Hippurate 1 GM Oral [...] 180 Tablet 3 01/17/20 23 Active Nystatin 897191 UNIT/GM External Powder (Nystop)Indication s:Candidal intertrigo Apply [...] neuropathy, with long-term current use of insulin ([facility]) use to test blood sugar 3 times daily 300 Strip 3 01/17/20 23 Active Sucralfate 1 GM Oral Tablet (Carafate)Indicati ons:Gastroesophage al reflux disease with esophagitis without hemorrhage Take 1 Tablet by mouth in the morning. 90 Tablet 0 10/24/19 23 023 Discontinued Hospital, Clinic, or Other Facility Administered Medication Ordered Dose Route Frequency Start Date End Date Status Albuterol Sulfate (Proventil) (2.5 MG/3ML) 0.083% inhalation solution 2.5 mgIndications:SOB (shortness of breath) 2.5 mg NEBULIZER PRN 01/18/2022 01/18/2023 Act [place] Albuterol Sulfate (Proventil) (5 MG/ML) 0.5% *conc* inhalation solution 2.5 mgIndications:SOB (shortness of breath) 2.5 mg NEBULIZER PRN 01/18/2022 01/18/2023 Act [place] documented as of this encounter (statuses as of 01/17/2023) Active Problems Problem Noted Date Medical home patient encounter 3 Hypertensive heart and kidne y disease with chronic diastolic congestive heart failure and stage 3a chronic kidney disease 12/28/2021 Last Assessment & Plan: Euvolemic, BP stable EF 55% 09/25 GFR 69 02/25 -Continue Torsemide 20 mg BID, Spironolactone 25 mg BID, Tropol XL 50 mg daily Atherosclerotic heart diseas e of [place] coronary artery with other forms of angina pectoris 11/15/2021 Last Assessment & Plan: Stable. No angina -continue toprol, ASA and statin Seasonal allergies 11/15/2021 Recurrent UTI 10/07/2021 Last Assessment & Plan: Followed by urology Pt is supposed to be on methenamine--will need to clarify with dgt that she is giving this. 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 Anxiety 08/05/2017 Hpytote-Fxsqp-Qxeca disease 06/27/2015 Last Assessment & Plan: Frequent [...] as of this encounter (statuses as of 01/17/2023) Resolved Problems Problem Noted Date Resolved Date [...] 05/06/2018 019 Atherosclerotic heart diseas e of [place] coronary artery with other forms of angina [...] coronary syndrome 10/30/2010 01/22/20 14 [place] Research Other*[id number] 02/02/2010 04/18/2014 Overview: [place] Registry, Dr Joel Kwon [place] Obesity, morbid [...] as of this encounter (statuses as of 01/17/2023) Immunizations Name Administration Dates Next Due COVID-19 [...] encounter Miscellaneous Notes * Telephone Encounter - Esther Bernard PA-C - 01/17/2023 1:46 PM EDTSigned Prescriptions: Disp Refills Sucralfate 1 GM Oral Tablet (Carafate) 90 Tab*0 Sig: TAKE 1 TABLET BY MOUTH EVERY MORNING Authorizing Provider: ESTHER BERNARD * Telephone Encounter - Liz Lazcano LPN - 01/17/2023 8:28 AM EDTPending Prescriptions: Disp Refills Sucralfate 1 GM Oral Tablet [Pharmacy Med *90 Tab*0 Sig: TAKE 1 TABLET BY MOUTH EVERY MORNING * Telephone Encounter - Liz Lazcano LPN - 01/17/2023 8:28 AM EDT Provider to address: Esther Bernard PA-C Reason for Call: eRx-Medication Refill Contact: My Biancaer Contact Type: Medication Outcome: Pending Prescriptions: Disp Refills Sucralfate 1 GM Oral Tablet (Carafate) [P*90 Tab*0 Sig: TAKE 1 TABLET BY MOUTH EVERY MORNING Last Visit: 01/15/2023 (in office), 03/06/2022 (telemedicine) Next Visit: 04/28/2023 Last date the medication was ordered: 10/23/2022 Patient Active Problem List Diagnosis Code PERONEAL MUSCLE ATROPHY G60.0 Gastroesophageal reflux disease without esophagitis K21.9 S/P angioplasty with stent Z95.820 Dyslipidemia, goal LDL below 70 E78.5 Hypothyroidism E03.9 GONZALEZ (nonalcoholic steatohepatitis) K75.81 Bipolar I disorder, most recent episode depressed, moderate (HCC) F31.32 HTN, goal below 130/80 I10 MEDICATION USE AGREEMENT [id number] Ilfreie-Ohvcr-Bwgjt disease G60.0 Anxiety F41.9 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, T40.601A Hypertensive heart disease with chronic diastolic congestive heart failure (HCC) I11.0, I50.32 Fatty liver K76.0 Chronic liver disease and cirrhosis (HCC) K74.60, K76.9 Portal hypertensive gastropathy (HCC) K76.6, K31.89 Moderate aortic stenosis I35.0 Type 2 diabetes mellitus with diabetic neuropathy (HCC) E11.40 Diabetic gastroparesis (HCC) E11.43, K31.84 buttermaker (current) use of insulin (HCC) Z79.4 Pelvic pain R10.2 Urge incontinence N39.41 Type 2 diabetes mellitus with diabetic neuropathy, with long-term current use of insulin (HCC) E11.40, Z79.4 Type 2 diabetes mellitus with stage 3a chronic kidney disease, with long- term current use of insulin (HCC) E11.22, N18.31, Z79.4 Recurrent UTI N39.0 Atherosclerotic heart disease of [place] coronary artery with other forms of angina pectoris (HCC) I25.118 Seasonal allergies J30.2 Hypertensive heart and kidney disease with chronic diastolic congestive heart failure and khmwa7v chronic kidney disease (HCC) I13.0, I50.32, N18.31 Medical home patient encounter Z00.8 Labs: Lab Results Component Value Date/Time CREATININE - [facility] 1.1 (H) 12/05/2022 12:33 PM CREATININE - [facility] 1.0 07/18/2020 12:20 PM CREATININE, RANDOM URINE - [facility] 41 10/23/2022 10:59 AM CREATININE, RANDOM URINE - [facility] 144 07/16/2017 12:06 PM CREATININE-OUTSIDE LAB 1.13 02/26/2021 12:00 AM Lab Results Component Value Date/Time POTASSIUM - [facility] 4.2 12/05/2022 09:00 AM POTASSIUM - [facility] 4.6 07/18/2020 12:20 [...] * Telephone Encounter - Marine Jacob - 01/16/2023 10:39 PM EDTPending Prescriptions: Disp Refills Sucralfate 1 GM Oral Tablet [Pharmacy Med *90 Tab*0 Sig: TAKE 1TABLET BY MOUTH EVERY MORNING documented in this encounter Plan of Treatment Upcoming Encounters Date Type Specialty Care Team Description 01/20/2023 Telemedicine [facility] Lashay Blevins PA-C [address] [place] [address] Beverly Lozoya [facility] [address] [place] [address] [place] [phone] 01/20/2023 Pharmacy Pharmacy [address] [phone] 02/19/2023 Office Visit Gynecology Urology Nir Landa MD [address] [place] [address] Nurse Yury Fox [address] [place] [address] 04/09/2023 Office Visit Urology Alfredo Panda MD [address] [place] [address] 04/23/2023 Office Visit Infectious Disease Kendall Bell, DO [address] [place] [address] 04/28/2023 Office Visit Family Medicine Brian Domínguez MD [address] [place], [place] [phone] 05/05/2023 Office Visit Cardiology Sobia Brewster PA-C [address] [place] [address] 05/09/2023 Office Visit Gastroenterology Wendy Frias, DO [address] [place] [address] Scheduled Procedures Name Priority Associated Diagnoses Date/Ti [...] Additional history exists CKD PHOS USE SMARTSET 26026 10/24/202310/05, 02/18/2022, 02/17/2022, Additional history exists TSH 10/24/2023 10/23/2022, 02/05, 09/24/2021, Additional history exists CKD HGB USE SMARTSET 50237 11/22/202311/21, 11/21/2022, 04/25/2022, Additional history exists Colonoscopy [...] this encounter Medical Devices Implanted Type Area Label Pinker Device Identifier Shelf Expiration Date Model / Serial / Lot Jenna Rojas 6 [id number] - [id number] [place]planted:[place] 1 [place] [facility] [place] Chest DO NOT USE 07/21/2015 [id number] / / [id number] documented as of this encounter Visit Diagnoses Diagnosis Gastroesophageal reflux disease with esophagitis without hemorrhage documented in this encounter Advance Directives Documents on File Type Date Recorded Patient Machine Sprayer Jose luna POL 05/06/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 Question Answer Comments Discussion of Advance Directives occurred with: Patient Does the patient have a Living Will? No Does the patient have Health Care Power of Power Barker? No Code Status History Code Status Date [...] the patient have Health Care Power of Power Barker? No Full Code 02/01/2010 4:02 PM 02/02/2010 4:09 PM This order reflects the patients wishes and were consensually agreed upon. Question Answer Comments Discussion of Advance Directives occurred with: Not Discussed Does the patient have a Living Will? No Does the patient have Health Care Power of Power Barker? No Healthcare Agents on File Name Relationship Healthcare Agent [facility] Communication Carolyn Ballard Adult Child Health Care Agent Care Teams Garnisher Relationship Specialty Start Date End Date Brian Domínguez MD [address] [place] [address] PCP - General Family Medicine 07/16/17 documented as of this encounter
--- OUTSIDE RECORDS SUMMARY | 2023-05-17 12:16 | External Medical Summary | Summary of Care ---
Author Name Unknown Organization [facility] Address [address] [place] [address] Phone [phone] Care Team Providers Care Staffing Clerk Name Role Phone Brian Domínguez MD Primary Care Provider +1- [phone] Reason for Visit * Reason Comments Appointment Encounter Details Date Type Department Care Team Description 01/20/2023 Pharmacy Pharmacy, [place] [address] [place] [address] [facility] [address] [place] [address] Type 2 diabetes mellitus with stage 3a chronic kidney disease, with long-term current use of insulin ([facility])* Allergies Active Allergy Reactions Severity Noted Date Comments Propoxyphene Hcl Rash Low 10/29/2010 Fentanyl Diarrhea Low 04/26/2010 anxiety Methocarbamol Medium 10/05/2020 Other reaction(s): Delirium Methocarbamol Low 04/15/2007 Zolpidem Low 10/05/2020 Other reaction(s): Confusion documented as of this encounter (statuses as of 01/20/2023) Medications Medication Sig Dispensed Refills Start Date End Date Status ARIPiprazole (ABILIFY) 2 MG Tablet Take 1 Tablet by mouth in the morning. 0 2015 Active venlafaxine XR (EFFEXOR XR) 150 MG [id number]:Dep ression Take 1 Cap by mouth daily. With food. 30 Cap 5 09/02/2016 Active Additional Information Patient taking differently: 225 mgOral Daily(AM), With food.,Indications: Takes 225 mg total every morning with food (150 mg tab + 75 mg tab), Reported on 06/24/2022 Blood Glucose Monitoring Suppl ([employer]-Wonderloop GLUCOMETER) w/Device KITIndications:Unco ntrolled type 2 diabetes mellitus without complication, without long-term current use of insulin Use as directed. Use as directed once daily 1 Kit 0 11/18/2017 Active Blood Glucose Monitoring Suppl (Cariloop VERIO) w/Device KIT Use as directed. Use as directed. 1 Kit 0 10/31/2018 Active Spacer/Aero-Holding Chambers WISAM Use with inhaler. Wheezing/bronchitis . 1 Device 0 04/08/2019 Active [employer]ere Lancets 33G MISC USE UP TO FOUR TIMES A DAY Dx:E11.4 100 Each 5 09/30/2019 Active Lancet Devices (RailpodUCH DELICA LANCING DEV) MISC Use four times [...] Respimat 2.5 MCG/ACT Inhalation Aerosol Solution (Tiotropium [place] Monohydrate) Inhale by mouth 2 Puffs in the morning. 4 g 3 04/25/2022 Active Estradiol 0.1 MG/GM Vaginal Cream Administer into the vagina 1 g in the morning. 42.5 g 12 05/07/2022 Active Diclofenac Sodium 1 % External Gel (Voltaren) Apply topically to affected area 2 times a day. 150 g 3 06/05/2022 Active Vitamin D (Ergocalciferol) 1.25 MG (23208 UT) Oral Capsule (Drisdol)Indication s:Vitamin D deficiency [...] DAILY 60 Capsule 5 08/22/2022 Active Nystatin 994670 UNIT/ML Mouth/Throat Suspension Swish and swallow 5 [...] days.. 20 Capsule 12/20/2022 Active UltiCare Pen [place] 31G X 5 MM (Insulin Pen Needle) use TWICE DAILY 200 Each 3 12/23/2022 Active Torsemide 20 MG Oral Tablet (Demadex)Indication s:Atherosclerotic heart disease of [place] coronary artery with other forms of [...] bedtime 180 Tablet 3 01/16/2023 Active Nystatin 092523 UNIT/GM External Powder (Nystop)Indications :Candidal intertrigo Apply [...] as of this encounter (statuses as of 01/20/2023) Active Problems Problem Noted Date Medical home patient encounter 3 Hypertensive heart and kidne y disease with chronic diastolic congestive heart failure and stage 3a chronic kidney disease 12/28/2021 Last Assessment & Plan: Euvolemic, BP stable EF 55% 09/25 GFR 69 02/25 -Continue Torsemide 20 mg BID, Spironolactone 25 mg BID, Tropol XL 50 mg daily Atherosclerotic heart diseas e of [place] coronary artery with other forms of angina pectoris 11/15/2021 Last Assessment & Plan: Stable. No angina -continue toprol, ASA and statin Seasonal allergies 11/15/2021 Recurrent UTI 10/07/2021 Last Assessment & Plan: Followed by urology Pt is supposed to be on methenamine--will need to clarify with dgt that she is giving this. 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 [facility] sent --yes Clinic will follow up again in 4 week(s). [Attempt # 1] Thank you, Lucretia Faulkner Teletray Operator [facility] ([facility]) (formerly [facility]) [phone] 01/20/2023,8:47 AM documented in this encounter Plan of Treatment Upcoming Encounters Date Type Specialty Care Team Description 01/20/2023 Telemedicine [facility] Lashay Blevins PA-Peter [address] [place] [address] Beverly Lozoya [address] [place] [id number] 02/17/2023 Pharmacy Pharmacy [facility] [address], [place] [id number] 02/19/2023 Office Visit Gynecology Urology Nir Landa MD [address] [place] [address] Nurse Yury Fox [address] [place] [address] 04/09/2023 Office Visit Urology Alfredo Panda MD [address] [place] [address] 04/23/2023 Office Visit Infectious Disease Kendall Bell, DO [address] [place] [address] 04/28/2023 Office Visit Family Medicine Brian Domínguez MD [address] [place] [address] 05/05/2023 Office Visit Cardiology Sobia Brewster PA-C [address] [place] [address] 05/09/2023 Office Visit Gastroenterology Wendy Frias DO [address] [place] [address] Scheduled Procedures Name Priority Associated Diagnoses Date/Ti [...] Additional history exists CKD PHOS USE SMARTSET 54834 10/24/202310/05, 02/18/2022, 02/17/2022, Additional history exists TSH 10/24/2023 10/23/2022, 02/05, 09/24/2021, Additional history exists CKD HGB USE SMARTSET 28679 11/22/202311/21, 11/21/2022, 04/25/2022, Additional history exists Colonoscopy [...] this encounter Medical Devices Implanted Type Area Hot Strip Mill Supervisor Device Identifier Shelf Expiration Date Model / Serial / Lot Sut Steel 6 [id number] - [id number] [place]ed:[place] [facility] Chest DO NOT USE 07/21/2015 [id number] / / [id number] documented as of this encounter Visit Diagnoses Diagnosis Type 2 diabetes mellitus with stage 3a chronic kidney disease, with long-term current use of insulin (HCC)- Primary documented in this encounter Advance Directives Documents on File Type Date Recorded Patient Construction Management Assistant 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 Question Answer Comments Discussion of Advance Directives occurred with: Patient Does the patient have a Living Will? No Does the patient have Health Care Power of Bracelet Maker Novelty? No Code Status History Code Status Date [...] the patient have Health Care Power of Bracelet Maker Novelty? No Full Code 02/01/2010 4:02 PM 02/02/2010 4:09 PM This order reflects the patients wishes and were consensually agreed upon. Question Answer Comments Discussion of Advance Directives occurred with: Not Discussed Does the patient have a Living Will? No Does the patient have Health Care Power of Bracelet Maker Novelty? No Healthcare Agents on File Name Relationship Healthcare Agent [facility] Communication Carolyn Goldmandrewnabila Adult Child Health Care Agent Care Teams Staffing Clerk Relationship Specialty Start Date End Date Brian Domínguez MD [address] [place] [address] PCP - General Family Medicine 07/16/17 documented as of this encounter
--- OUTSIDE RECORDS SUMMARY | 2023-05-17 12:16 | External Medical Summary ---
Author Name Unknown Address Unknown Organization K01:[facility] - [address] [facility] [address] Laboratory Report Ordering Provider Test Date Status LETTY UMANZOR 01/22/2023 10:49:42 Final <10,000 colonies/ml mixed no rmal indira Observation Date Value Abnormality Reference (Units ) Status Bacteria identified in Unspecified specimen by Culture 01/22/2023 10:49:42 [id number]^PSEUDOMON AERUGINOSA Abnormal Final >100,000 colonies/mL Pseudom onas aeruginosa
This bacterial species is known to produce a chromosomal AmpC inducible beta lactamase. Penicillin or cephalosporin use, with the exception of cefepime, may result in resistance. [place]forming [place] [facility] [place] [address] [facility] [address] Ordering Provider Test Date Status LETTY UMANZOR 01/22/2023 10:49:42 Final Observation Date Value Abnormality Reference (Units ) Status Cefepime susceptibility 01/22/2023 10:49:42 <=1 Susceptible Final Ciprofloxacin 01/22/2023 10:49:42 <=0.25 Susceptible Final Due to serious side effects, the FDA has advised against using Ciprofloxacin to treat uncomplicated UTIs and respiratory tract infections unless there are no alternative treatment options. Levofloxacin susceptibility 01/22/2023 10:49:42 0.25 Junior sceptible Final Due to serious side effects, the FDA has advised against using Levofloxacin to treat uncomplicated UTIs and respiratory tract infections unless there are no alternative treatment options. Piperacillin + Tazobactamsusceptibility 01/22/2023 10:49:42 <=4 Susceptible Final Tobramycinsusceptibility 01/22/2023 10:49:42 <=1 Susce ptible Final Test: Culture, Urine, Quanti tative
Specimen Source: Urine, Clean Catch
Specimen Type: Urine
Specimen Date: 01/22/2023 10:49 AM
Result Date: 01/24/2023 7:38 AM
Result Status: Final result
Abnormal: Yes
Resulting Lab: [facility]
[address]
[place] [address]

CULTURE

>100,000 colonies/mL Pseudomonas aeruginosa (Abnormal)

This bacterial species is known to produce a chromosomal AmpC inducible
beta lactamase. Penicillin or cephalosporin use, with the exception of
cefepime, may result in resistance.

<10,000 colonies/ml mixed normal indira

SUSCEPTIBILITY

Pseudomonas aeruginosa
METHOD MICROBROTH DILUTIONS

CEFEPIME <=1 Susceptible
CIPROFLOXACIN <=0.25 Susceptible [1]
LEVOFLOXACIN 0.25 Susceptible [2]
PIPERACILLIN TAZOBACTAM <=4 Susceptible
TOBRAMYCIN <=1 Susceptible

[1] Due to serious side effects, the FDA has advised against using
Ciprofloxacin to treat uncomplicated UTIs and respiratory tract infections
unless there are no alternative treatment options.

[2] Due to serious side effects, the FDA has advised against using
Levofloxacin to treat uncomplicated UTIs and respiratory tract infections
unless there are no alternative treatment options.

null Performing Location [facility] [place] [address] [facility] [address]
--- OUTSIDE RECORDS SUMMARY | 2023-05-17 12:16 | External Medical Summary | Summary of Care ---
Author Name Unknown Organization [facility] Address [address] [place] [address] Phone [phone] Care Team Providers Care Sports Reporter Name Role Phone Brian Domínguez MD Primary Care Provider +1- [phone] Reason for Visit * Reason Comments case management Encounter Details Date Type Department Care Team Description 01/22/2023 Customer Service And Sales ConsultantDeveloper Programmer Analyst Practice [facility] [address] [facility] [place] [address] Nayla Bellamy, RN Medical home patient encounter* [...] Active venlafaxine XR (EFFEXOR XR) 150 MG [id number]:Dep ression Take 1 Cap by mouth daily. [...] 0 11/18/2017 Active Blood Glucose Monitoring Suppl ([employer] VERIO) w/Device KIT Use as directed. Use [...] Respimat 2.5 MCG/ACT Inhalation Aerosol Solution (Tiotropium [place] Monohydrate) Inhale by mouth 2 Puffs in the morning. 4 g 3 04/25/2022 Active Estradiol 0.1 MG/GM Vaginal Cream Administer into the vagina 1 g in the morning. 42.5 g 12 05/07/2022 Active Diclofenac Sodium 1 % External Gel (Voltaren) Apply topically to affected area 2 times a day. 150 g 3 06/05/2022 Active Vitamin D (Ergocalciferol) 1.25 MG (52676 UT) Oral Capsule (Drisdol)Indication s:Vitamin D deficiency [...] DAILY 60 Capsule 5 08/22/2022 Active Nystatin 235975 UNIT/ML Mouth/Throat Suspension Swish and swallow 5 [...] 20 Capsule 1 12/20/2022 Active UltiCare Pen [place] 31G X 5 MM (Insulin Pen Needle) use TWICE DAILY 200 Each 3 12/23/2022 Active Torsemide 20 MG Oral Tablet (Demadex)Indication s:Atherosclerotic heart disease of [place] coronary artery with other forms of angina [...] bedtime 180 Tablet 3 01/16/2023 Active Nystatin 684277 UNIT/GM External Powder (Nystop)Indications :Candidal intertrigo Apply [...] neuropathy, with long-term current use of insulin ([facility]) use to test blood sugar 3 times [...] mg daily Atherosclerotic heart diseas e of [place] coronary artery with other forms of angina pectoris 11/15/2021 Last Assessment & Plan: Stable. No angina -continue toprol, ASA and statin Seasonal allergies 11/15/2021 Recurrent UTI 10/07/2021 Last Assessment & Plan: Followed by urology Pt is supposed to be on methenamine--will need to clarify with dgt that she is giving this. 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 Patient has had an "off day". She reports seeing a cat at her window when there is not a cat present. She also states in the afternoon when there is more shade from the trees she notices this. Urine specimen was submitted today to r/o infection. Daughter would like guidance on [facility] and who they would have available to call on weekend and in evenings after hours. Has some confusion around [facility] and [facility] provider home assisted- televisits. Having some staffing changes with caregivers presently. Patient sees psychiatrist, but has not had counseling in "many years". L leg has swelling at baseline. She has been too unsteady to use bluetooth homescale re cently. Does have a different scale available at home. Tomorrow will be evaluated at [facility] for lymphedema therapy. Daughter would like to speak with CM separately tomorrow after 2 PM. O: phone call follow up A: alert, oriented P: Reinforced monitoring and reporting concerns or worsening symptoms. Await UA results. documented in this encounter Plan of Treatment Upcoming Encounters Date Type Specialty Care Team Description 02/17/2023 Pharmacy Pharmacy [address] [address] 02/19/2023 Office Visit Gynecology Urology Nir Landa MD [address] [place] [address] Nurse Yury Fox [address] [place] [address] 03/03/2023 Telemedicine [facility] Lashay Blevins PA-C [address] [place] [address] Beverly Lozoya, [employer] Assistant [address] [place] [address] [place] [address] 04/09/2023 Office Visit Urology Alfredo Panda MD [address] [place] [address] 04/23/2023 Office Visit Infectious Disease Kendall Bell, DO [address] [place] [address] 04/28/2023 Office Visit Family Medicine Brian Domínguez MD [address] [place] [address] 05/05/2023 Office Visit Cardiology Sobia Brewster PA-C [address] [place] [address] 05/09/2023 Office Visit Gastroenterology Wendy Frias, DO [address] [place] [address] Scheduled Procedures Name Priority Associated Diagnoses Date/Ti [...] Additional history exists CKD PHOS USE SMARTSET 31088 10/24/202310/05, 02/18/2022, 02/17/2022, Additional history exists TSH 10/24/2023 10/23/2022, 02/05, 09/24/2021, Additional history exists CKD HGB USE SMARTSET 71675 11/22/202311/21, 11/21/2022, 04/25/2022, Additional history exists Colonoscopy [...] encounter Medical Devices Implanted Type Area Corporate Law Assistant Device Identifier Shelf Expiration Date Model / Serial / Lot Sut Bob 6 M654g - [id number] Implanted:[place] 1 [place] [facility] [place] Chest DO NOT USE 07/21/2015 [id number] / / [id number] documented as of this encounter Visit Diagnoses Diagnosis Medical home patient encounter- Primary Other specified examination documented in this encounter Advance Directives Documents on File Type Date Recorded Patient Tape Duplicator Expl anation POL 05/06/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 Question Answer Comments Discussion of Advance Directives occurred with: Patient Does the patient have a Living Will? No Does the patient have Health Care Power of Reverse Unit Operator Fisherman? No Code Status History Code Status Date [...] the patient have Health Care Power of Reverse Unit Operator Fisherman? No Full Code 02/01/2010 4:02 PM 02/02/2010 4:09 PM This order reflects the patients wishes and were consensually agreed upon. Question Answer Comments Discussion of Advance Directives occurred with: Not Discussed Does the patient have a Living Will? No Does the patient have Health Care Power of Reverse Unit Operator Fisherman? No Healthcare Agents on File Name Relationship Healthcare Agent [facility] p Communication Carolyn Goldmangerard Adult Child Health Care Agent Care Teams Sports Reporter Relationship Specialty Start Date End Date Brian Domínguez MD [address] [place] [address] PCP - General Family Medicine 07/16/17 documented as of this encounter
--- OUTSIDE RECORDS SUMMARY | 2023-05-17 12:16 | External Medical Summary | Summary of Care ---
Author Name Unknown Organization [facility] Address [address] [place] [address] Phone [phone] Care Team Providers Care Diesel Automotive Technician Name Role Phone Brian Domínguez MD Primary Care Provider [phone]- [phone] Reason for Visit * Reason Onset Date Comments Advice 01/24/2023 Encounter Details Date Type Department Care Team Description 01/24/2023 Telephone [facility] [place] [address] [place] [address] Lashay Blevins PA-C [address] [place] [address] Advice Allergies Active Allergy Reactions [...] Active venlafaxine XR (EFFEXOR XR) 150 MG [id number]:Dep ression Take 1 Cap by mouth daily. With food. 30 Cap 5 09/02/2016 Active Additional Information Patient taking differently: 225 mgOral Daily(AM), With food.,Indications: Takes 225 mg total every morning with food (150 mg tab + 75 mg tab), Reported on 06/24/2022 Blood Glucose Monitoring Suppl (Healint-imgScrimmage GLUCOMETER) w/Device KITIndications:Unco ntrolled type 2 diabetes mellitus without complication, without long-term current use of insulin Use as directed. Use as directed once daily 1 Kit 0 11/18/2017 Active Blood Glucose Monitoring Suppl (ArisokoIO) w/Device KIT Use as directed. Use as directed. 1 Kit 0 10/31/2018 Active Spacer/Aero-Holding Chambers WISAM Use with inhaler. Wheezing/bronchitis . 1 Device 0 04/08/2019 Active LaunchPoint DelVastari Lancets 33G MISC USE UP TO FOUR TIMES A DAY Dx:E11.4 100 Each 5 09/30/2019 Active Lancet Devices (Equals6UCH DELICA LANCING DEV) MISC Use four times [...] Respimat 2.5 MCG/ACT Inhalation Aerosol Solution (Tiotropium [place] Monohydrate) Inhale by mouth 2 Puffs in the morning. 4 g 3 04/25/2022 Active Estradiol 0.1 MG/GM Vaginal Cream Administer into the vagina 1 g in the morning. 42.5 g 12 05/07/2022 Active Diclofenac Sodium 1 % External Gel (Voltaren) Apply topically to affected area 2 times a day. 150 g 3 06/05/2022 Active Vitamin D (Ergocalciferol) 1.25 MG (23384 UT) Oral Capsule (Drisdol)Indication s:Vitamin D deficiency [...] DAILY 60 Capsule 5 08/22/2022 Active Nystatin 753809 UNIT/ML Mouth/Throat Suspension Swish and swallow 5 [...] days.. 20 Capsule 12/20/2022 Active UltiCare Pen [place] 31G X 5 MM (Insulin Pen Needle) use TWICE DAILY 200 Each 12/23/2022 Active Torsemide 20 MG Oral Tablet (Demadex)Indication s:Atherosclerotic heart disease of [place] coronary artery with other forms of angina [...] bedtime 180 Tablet 3 01/16/2023 Active Nystatin 781519 UNIT/GM External Powder (Nystop)Indications :Candidal intertrigo Apply [...] times daily 300 Strip 3 01/16/2023 Active Ciprofloxacin HCl 500 MG Oral Tablet (Cipro) Take 1 Tablet by mouth in the morning and 1 Tablet before bedtime. Do all this for 10 days. 20 Tablet 0 01/24/2023 02/04/20 23 Active documented as of this [...] mg daily Atherosclerotic heart diseas e of [place] coronary artery with other forms of angina pectoris 11/15/2021 Last Assessment & Plan: Stable. No angina -continue toprol, ASA and statin Seasonal allergies 11/15/2021 Recurrent UTI 10/07/2021 Last Assessment & Plan: Followed by urology Pt is supposed to be on methenamine--will need to clarify with dgt that she is giving this. 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 Her mom has cloudy urine again, agitation and low grade fevers over the last two days. She took a urine culture in for analysis which shows +pseudomonas. Will send Rx for Ciprofloxacin. She is trying to get her mother to go to the Urogyn and ID appt. Advised to reach out with any change in S/S. documented in this encounter Plan of Treatment Upcoming Encounters Date Type Specialty Care Team Description 02/17/2023 Pharmacy Pharmacy [facility] [address] [place] [address] 02/19/2023 Office Visit Gynecology Urology Nir Landa MD [address] [place] [address] Nurse Yury Fox [address] [place] [address] 03/03/2023 Telemedicine [facility] Lashay Blevins PA-C [address] [place] [address] Beverly Lozoya, [address] [place] [address] 04/09/2023 Office Visit Urology Alfredo Panda MD [address] [place] [address] 04/23/2023 Office Visit Infectious Disease Kendall Bell, DO [address] [place] [address] 04/28/2023 Office Visit Family Medicine Brian Domínguez MD [address], [place] [address] 05/05/2023 Office Visit Cardiology Sobia Brewster PA-C [address] [place] [address] 05/09/2023 Office Visit Gastroenterology Wendy Frias DO [address] [place] [address] Scheduled Procedures Name Priority Associated Diagnoses Date/Ti [...] Additional history exists CKD PHOS USE SMARTSET 26328 10/24/202310/05, 02/18/2022, 02/17/2022, Additional history exists TSH 10/24/2023 10/23/2022, 02/05, 09/24/2021, Additional history exists CKD HGB USE SMARTSET 72502 11/22/202311/21, 11/21/2022, 04/25/2022, Additional history exists Colonoscopy [...] this encounter Medical Devices Implanted Type Area Metal Cabinet Finisher Device Identifier Shelf Expiration Date Model / Serial / Lot Jenna Rojas 6 [id number] - [id number] [place]ed:Q[place] 1 [place] [facility] [place]: Chest DO NOT USE 07/21/2015 [id number] / / [id number] documented as of this encounter Advance Directives Documents on File Type Date Recorded Patient Saw Cleaner Expl anation POLST 05/06/2018 POLST Latest [...] the patient have Health Care Power of Grey Percher? No Code Status History Code Status Date [...] the patient have Health Care Power of Grey Percher? No Full Code 02/01/2010 4:02 PM 02/02/2010 4:09 PM This order reflects the patients wishes and were consensually agreed upon. Question Answer Comments Discussion of Advance Directives occurred with: Not Discussed Does the patient have a Living Will? No Does the patient have Health Care Power of Grey Percher? No Healthcare Agents on File Name Relationship Healthcare Agent [facility] Communication Carolyn Goldmandrewnabila Adult Child Health Care Agent Care Teams Diesel Automotive Technician Relationship Specialty Start Date End Date Brian Domínguez MD [address] [place] [address] PCP - General Family Medicine 07/16/17 documented as of this encounter
--- OUTSIDE RECORDS SUMMARY | 2023-05-17 12:16 | External Medical Summary | Summary of Care ---
Author Name Unknown Organization [facility] Address [address] [place] [address] Phone [phone] Care Team Providers Care Glue Maker Bone Name Role Phone Carmen Sifuentes MD Primary Care Provider [phone]- [phone] Reason for Visit * Reason Comments eRx-Medication Refill Encounter Details Date Type Department Care Team Description 01/16/2023 Refill [facility] [address] [place] [address] Carmen iSfuentes MD [address] [place] [address] Type 2 diabetes mellitus with diabetic neuropathy, with long-term current use of insulin (HCC) Allergies Active Allergy Reactions Severity Noted Date Comments Propoxyphene Hcl Rash Low 10/29/2010 Fentanyl Diarrhea Low 04/26/2010 anxiety Methocarbamol Medium 10/05/2020 Other reaction(s): Delirium Methocarbamol Low 04/15/2007 Zolpidem Low 10/05/2020 Other reaction(s): Confusion documented as of this encounter (statuses as of 01/16/2023) Medications Medication Sig Dispensed Refills Start Date End Date Status ARIPiprazole (ABILIFY) 2 MG Tablet Take 1 Tablet by mouth in the morning. 0 07/11/19 16 Active venlafaxine XR (EFFEXOR XR) 150 MG CO32Qupydrgkukd:De pression Take 1 Cap by mouth daily. [...] 11/19/19 18 Active Blood Glucose Monitoring Suppl (Winerist VERIO) w/Device KIT Use as directed. Use as directed. 1 Kit 0 11/01/19 19 Active Spacer/Aero-Holdin g Chambers WISAM Use with inhaler. Wheezing/bronchiti s. 1 Device 0 04/08/20 19 Active OneTouch Delica Lancets 33G MISC USE UP TO FOUR TIMES A DAY Dx:E11.4 100 Each 5 09/30/19 20 Active Lancet Devices (Centrillion BiosciencesUCH DELICA LANCING DEV) MISC Use four times [...] long-term current use of insulin ([facility]) Inject 30 units under the skin twice daily 45 mL 3 04/16/20 22 Active Insulin Glargine Solostar 100 UNIT/ML Subcutaneous Solution Pen-injector (Basaglar KwikPen)Indication s:Type 2 diabetes mellitus with diabetic neuropathy, with long-term current use of insulin ([facility]) Inject 30 units under the skin twice [...] Respimat 2.5 MCG/ACT Inhalation Aerosol Solution (Tiotropium [place] Monohydrate) Inhale by mouth 2 Puffs in the morning. 4 g 3 04/25/20 22 Active Estradiol 0.1 MG/GM Vaginal Cream Administer into the vagina 1 g in the morning. 42.5 g 12 05/07/20 22 Active Diclofenac Sodium 1 % External Gel (Voltaren) Apply topically to affected area 2 times a day. 150 g 3 06/05/20 22 Active Vitamin D (Ergocalciferol) 1.25 MG (34892 UT) Oral Capsule (Drisdol)Indicatio ns:Vitamin D deficiency [...] 60 Capsule 5 08/22/19 23 Active Nystatin 915255 UNIT/ML Mouth/Throat Suspension Swish and swallow 5 [...] morning. 90 Tablet 1 10/24/19 23 Active Sucralfate 1 GM Oral Tablet (Carafate)Indicati ons:Gastroesophage al reflux disease with esophagitis without hemorrhage Take 1 Tablet by mouth in the morning. 90 Tablet 0 10/24/19 23 Active Albuterol Sulfate HFA 108 [...] DAILY 90 Tablet 1 12/20/19 23 Active Cefdinir 300 MG Oral Capsule (Omnicef)Indicatio ns:UTI symptoms Take 1 Capsule by mouth in the morning and 1 Capsule before bedtime. For 10 days.. 20 Capsule 12/21/19 23 Active UltiCare Pen [place] 31G X 5 MM (Insulin Pen Needle) use TWICE DAILY 200 Each 12/24/19 23 Active Torsemide 20 MG Oral Tablet (Demadex)Indicatio ns:Atherosclerotic heart disease of [place] coronary artery with other forms of angina [...] 180 Tablet 3 01/17/20 23 Active Nystatin 263453 UNIT/GM External Powder (Nystop)Indication s:Candidal intertrigo Apply topically to affected area 3 times a day. Apply to right breast until rash resolved. 30 g 0 01/16/20 23 Active OneTouch Verio In Vitro Strip (Glucose Blood)Indications: Type 2 diabetes mellitus with diabetic neuropathy, with long-term current use of insulin ([facility]) use to test blood sugar 3 times daily 300 Strip 3 01/17/20 23 Active OneTouch Verio In Vitro Strip (Glucose Blood)Indications: Type 2 diabetes mellitus with diabetic neuropathy, with long-term current use of insulin ([facility]) USE TO CHECK BLOOD SUGAR THREE TIMES A DAY 300 Strip 1 05/11/20 22 023 Discontinued Hospital, Clinic, or Other Facility [...] as of this encounter (statuses as of 01/16/2023) Active Problems Problem Noted Date Medical home patient encounter 3 Hypertensive heart and kidne y disease with chronic diastolic congestive heart failure and stage 3a chronic kidney disease 12/28/2021 Last Assessment & Plan: Euvolemic, BP stable EF 55% 09/25 GFR 69 02/25 -Continue Torsemide 20 mg BID, Spironolactone 25 mg BID, Tropol XL 50 mg daily Atherosclerotic heart diseas e of [place] coronary artery with other forms of angina pectoris 11/15/2021 Last Assessment & Plan: Stable. No angina -continue toprol, ASA and statin Seasonal allergies 11/15/2021 Recurrent UTI 10/07/2021 Last Assessment & Plan: Followed by urology Pt is supposed to be on methenamine--will need to clarify with dgt that she is giving this. 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 Anxiety 08/05/2017 Efldvpu-Tvuok-Lvrre disease 06/27/2015 Last Assessment & Plan: Frequent [...] as of this encounter (statuses as of 01/16/2023) Resolved Problems Problem Noted Date Resolved Date [...] 05/06/2018 019 Atherosclerotic heart diseas e of [place] coronary artery with other forms of angina [...] 10/31/201008/08 Acute coronary syndrome 10/30/2010 01/22/20 14 [place] Research Other*[id number] 02/02/2010 04/18/2014 Overview: [place] Registry, Dr Joel Kwon [place] Obesity, morbid [...] as of this encounter (statuses as of 01/16/2023) Immunizations Name Administration Dates Next Due COVID-19 [...] Notes * Telephone Encounter - Saundra Diez RP - 01/16/2023 3:35 PM EDTSigned Prescriptions: Disp Refills SSN Logistics In Vitro Strip (Glucose Blo*[address] St*3 Sig: use to test blood sugar 3 times daily Authorizing Provider: CARMEN SIFUENTES Ordering User: SAUNDRA DIEZ * Telephone Encounter - Kala West CPhT - 01/16/2023 3:21 PM EDT Pt's daughter's phone went on last call- she is asking high priority, pt is out of medication Thank you, Kala West CPhT II Telephone Supervisor [facility] ([facility]) (Formerly Telepharmacy) 01/16/2023, 3:21 PM * Telephone Encounter - Gracie Daniels CPhT - 01/16/2023 3:10 PM EDT Did you pend patient's preferred pharmacy and medication before forwarding?yes Pharmacy: [id number] Pending Prescriptions: Disp Refills OneTouch Verio In Vitro Strip (Glucose Bl* 0 Sig: use to test blood sugar 3 times daily Last Visit: 01/15/2023 (in office), 03/06/2022 (telemedicine) Next Visit: 04/28/2023 If no future appointments scheduled, and last appointment is greater than a year ago, please schedule patient for a follow-up appointment Last date the medication was ordered: 05/11/2022 Is this request for a controlled substance?No [...] [facility] Lashay Blevins PA-C [address] [place] [address] Beverly Lozoya, [address] [place] [address] 01/20/[address] [facility] [address] [place] [address] 02/19/2023 Office Visit Gynecology Urology Nir Landa MD [address] [place] [address] Nurse Yury Fox [address] [place], [place] [address] 04/09/2023 Office Visit Urology Alfredo Panda MD [address] [place] [id number] 04/23/2023 Office Visit Infectious Disease Kendall Bell, DO [address] [place] [address] 04/28/2023 Office Visit Family Medicine Carmen Sifuentes MD [address] [place] [address] 05/05/2023 Office Visit Cardiology Sobia Brewster PA-C [address] [place] [address] 05/09/2023 Office Visit Gastroenterology Wendy Frias DO [address] [place] [address] Scheduled Procedures Name Priority Associated Diagnoses Date/Ti [...] Additional history exists CKD PHOS USE SMARTSET 49646 10/24/202310/05, 02/18/2022, 02/17/2022, Additional history exists TSH 10/24/2023 10/23/2022, 02/05, 09/24/2021, Additional history exists CKD HGB USE SMARTSET 68091 11/22/202311/21, 11/21/2022, 04/25/2022, Additional history exists Colonoscopy [...] this encounter Medical Devices Implanted Type Area Algorithm Developer Device Identifier Shelf Expiration Date Model / Serial / Lot Sut Steel 6 M654g - [id number] Implanted:Qty: 1 on 02/15/2011 at [place] [facility] [place] N/A: Chest DO NOT USE 07/21/2015 [id number] / / [id number] documented as of this encounter Visit Diagnoses Diagnosis Type 2 diabetes mellitus with diabetic neuropathy, with long-term current use of insulin (HCC) documented in this encounter Advance Directives Documents on File Type Date Recorded Patient Personnel Arbitrator Expl anation POL 05/06/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 Question Answer Comments Discussion of Advance Directives occurred with: Patient Does the patient have a Living Will? No Does the patient have Health Care Power of Java Lead Engineer? No Code Status History Code Status [...] the patient have Health Care Power of Java Lead Engineer? No Full Code 02/01/2010 4:02 PM 02/02/2010 4:09 PM This order reflects the patients wishes and were consensually agreed upon. Question Answer Comments Discussion of Advance Directives occurred with: Not Discussed Does the patient have a Living Will? No Does the patient have Health Care Power of Java Lead Engineer? No Healthcare Agents on File Name Relationship [facility] Communication Carolyn Ballard Adult Child Health Care Agent Care Teams Glue Maker Bone Relationship Specialty Start Date End Date Carmen Sifuentes MD [address] [place] [address] PCP - General Family Medicine 07/16/17 documented as of this encounter
--- OUTSIDE RECORDS SUMMARY | 2023-05-17 12:16 | External Medical Summary | Summary of Care ---
Author Name Unknown Organization [facility] Address [address] [place] [address] Phone [phone] Care Team Providers Care Chess Instructor Name Role Phone Brian Domínguez MD Primary Care Provider +1- [phone] Reason for Visit * Reason Comments case management Encounter Details Date Type Department Care Team Description 01/23/2023 Animal AnatomistArborer Practice [facility] [address] [place] [address] Nayla Bellamy, RN Medical home patient encounter* [...] Active venlafaxine XR (EFFEXOR XR) 150 MG QH02Oxtifgvmzvg:Dep ression Take 1 Cap by mouth daily. [...] 0 11/18/2017 Active Blood Glucose Monitoring Suppl ([place] VERIO) w/Device KIT Use as directed. Use [...] Respimat 2.5 MCG/ACT Inhalation Aerosol Solution (Tiotropium [place] Monohydrate) Inhale by mouth 2 Puffs in the morning. 4 g 3 04/25/2022 Active Estradiol 0.1 MG/GM Vaginal Cream Administer into the vagina 1 g in the morning. 42.5 g 12 05/07/2022 Active Diclofenac Sodium 1 % External Gel (Voltaren) Apply topically to affected area 2 times a day. 150 g 3 06/05/2022 Active Vitamin D (Ergocalciferol) 1.25 MG (55149 UT) Oral Capsule (Drisdol)Indication s:Vitamin D deficiency [...] DAILY 60 Capsule 5 08/22/2022 Active Nystatin 625745 UNIT/ML Mouth/Throat Suspension Swish and swallow 5 [...] 20 Capsule 1 12/20/2022 Active UltiCare Pen [place] 31G X 5 MM (Insulin Pen Needle) use TWICE DAILY 200 Each 3 12/23/2022 Active Torsemide 20 MG Oral Tablet (Demadex)Indication s:Atherosclerotic heart disease of [place] coronary artery with other forms of angina [...] bedtime 180 Tablet 3 01/16/2023 Active Nystatin 485744 UNIT/GM External Powder (Nystop)Indications :Candidal intertrigo Apply [...] neuropathy, with long-term current use of insulin ([facility]) use to test blood [...] daily Atherosclerotic heart diseas e of [place] coronary artery with other forms of angina pectoris 11/15/2021 Last Assessment & Plan: Stable. No angina -continue toprol, ASA and statin Seasonal allergies 11/15/2021 Recurrent UTI 10/07/2021 Last Assessment & Plan: Followed by urology Pt is supposed to be on methenamine--will need to clarify with dgt that she is giving this. 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 Follow-up Routine 2. Attempted Phone Call First Attempt 3. Call Outcome Left Voicemail/Message on daughters phone 4. Plan To attempt another outreach documented in this encounter Plan of Treatment Upcoming Encounters Date Type Specialty Care Team Description 02/17/2023 Pharmacy Pharmacy [facility] [address] [place] [address] 02/19/2023 Office Visit Gynecology Urology Nir Landa MD [address] [place] [address] Nurse Yury Fox [address] [place] [address] 03/03/2023 Telemedicine [facility] Lashay Blevins PA-C [address] [place] [address] Beverly Lozoya, [address] [place] [address] 04/09/2023 Office Visit [facility] [address] [place] [address] 04/23/2023 Office Visit Infectious Disease Kendall Bell, DO [address] [place] [address] 04/28/2023 Office Visit Family Medicine Brian Domínguez MD [address] [place] [address] 05/05/2023 Office Visit Cardiology Sobia Brewster PAAttilaC [address] [place] [address] 05/09/2023 Office Visit Gastroenterology Wendy Frias DO [address] [place] [address] Scheduled Procedures Name Priority Associated Diagnoses Date/Ti [...] Additional history exists CKD PHOS USE SMARTSET 77876 10/24/202310/05, 02/18/2022, 02/17/2022, Additional history exists TSH 10/24/2023 10/23/2022, 02/05, 09/24/2021, Additional history exists CKD HGB USE SMARTSET 44005 11/22/202311/21, 11/21/2022, 04/25/2022, Additional history exists Colonoscopy [...] this encounter Medical Devices Implanted Type Area Lockstitch Lining Maker Device Identifier Shelf Expiration Date Model / Serial / Lot Sut Steel 6 M654g - [id number] [place]planted:[place] 02[place] [facility] [place]: Chest DO NOT USE 07/21/2015 [id number] / / [id number] documented as of this encounter Visit Diagnoses Diagnosis Medical home patient encounter- Primary Other specified examination documented in this encounter Advance Directives Documents on File Type Date Recorded Patient Mobile Equipment Servicer Expl anation POL 05/06/2018 POL Latest Code Status on File Code Status Date Activated Date Inactivated Comments Full Code 06/25/2011 3:09 AM 06/26/2011 9:47 PM Thi s order reflects the patients wishes and were consensually agreed upon. Question Answer Comments Discussion of Advance Directives occurred with: Patient Does the patient have a Living Will? No Does the patient have Health Care Power of Project Management It Specialist? No Code Status History Code Status [...] the patient have Health Care Power of Project Management It Specialist? No Full Code 02/01/2010 4:02 PM 02/02/2010 4:09 PM This order reflects the patients wishes and were consensually agreed upon. Question Answer Comments Discussion of Advance Directives occurred with: Not Discussed Does the patient have a Living Will? No Does the patient have Health Care Power of Project Management It Specialist? No Healthcare Agents on File Name Relationship Healthcare Agent [facility] p Communication Carolyn Ballard Adult Child Health Care Agent Care Teams Chess Instructor Relationship Specialty Start Date End Date Brian Domínguez MD [address] [place] [address] PCP - General Family Medicine 07/16/17 documented as of this encounter
--- OUTSIDE RECORDS SUMMARY | 2023-05-17 12:17 | External Medical Summary | Summary of Care ---
Author Name Unknown Organization [facility] Address [address] [place] [address] Phone [phone] Care Team Providers Care Conveyor Tender Name Role Phone Carmen Sifuentes MD Primary Care Provider +1- [phone] Reason for Visit * Reason Comments eRx-Medication Refill Encounter Details Date Type Department Care Team Description 01/14/2023 Refill [facility] [address] [place] [address] Carmen Sifuentes MD [address] [place] [address] GONZALEZ (nonalcoholic steatohepatitis); Portal hypertension (HCC); Chronic liver disease and cirrhosis (HCC); Portal hypertensive gastropathy (HCC) Allergies Active Allergy Reactions Severity Noted [...] Active venlafaxine XR (EFFEXOR XR) 150 MG [id number]:De pression Take 1 Cap by mouth daily. With food. 30 Cap 5 09/02/19 17 Active Additional Information Patient taking differently: 225 mgOral Daily(AM), With food.,Indications: Takes 225 mg total every morning with food (150 mg tab + 75 mg tab), Reported on 06/24/2022 Blood Glucose Monitoring Suppl (D-Anagear GLUCOMETER) w/Device KITIndications:Unc ontrolled type 2 diabetes mellitus without complication, without long-term current use of insulin Use as directed. Use as directed once daily 1 Kit 0 11/19/19 18 Active Blood Glucose Monitoring Suppl ([employer]) w/Device KIT Use as directed. Use as [...] long-term current use of insulin ([facility]) Inject 30 units under the skin twice daily 45 mL 3 04/16/20 22 Active Insulin Glargine Solostar 100 UNIT/ML Subcutaneous Solution Pen-injector (Basaglar KwikPen)Indication s:Type 2 diabetes mellitus with diabetic neuropathy, with long-term current use of insulin ([facility]) Inject 30 units under the skin [...] Respimat 2.5 MCG/ACT Inhalation Aerosol Solution (Tiotropium [place] Monohydrate) Inhale by mouth 2 Puffs in the morning. 4 g 3 04/25/20 22 Active Estradiol 0.1 MG/GM Vaginal Cream Administer into the vagina 1 g in the morning. 42.5 g 12 05/07/20 22 Active OneTouch Verio In Vitro Strip (Glucose Blood)Indications: Type 2 diabetes mellitus with diabetic neuropathy, with long-term current use of insulin ([facility]) USE TO CHECK BLOOD SUGAR THREE TIMES A DAY 300 Strip 1 05/11/20 22 Active Diclofenac Sodium 1 % External Gel (Voltaren) Apply topically to affected area 2 times a day. 150 g 3 06/05/20 22 Active Vitamin D (Ergocalciferol) 1.25 MG (81049 UT) Oral Capsule (Drisdol)Indicatio ns:Vitamin D deficiency [...] 60 Capsule 5 08/22/19 23 Active Nystatin 139476 UNIT/ML Mouth/Throat Suspension Swish and swallow 5 [...] as directed 18 g 11/08/19 23 Active Oxybutynin Chloride ER 10 [...] 20 Capsule 12/21/19 23 Active UltiCare Pen [place] 31G X 5 MM (Insulin Pen Needle) use TWICE DAILY 200 Each 12/24/19 23 Active Torsemide 20 MG Oral Tablet (Demadex)Indicatio ns:Atherosclerotic heart disease of [place] coronary artery with other forms of angina pectoris (HCC),Hypertensive heart disease with chronic diastolic congestive heart failure (HCC) TAKE 1 TABLET BY MOUTH EVERY MORNING. MAY TAKE 1 ADDITIONAL TABLET NEEDED FOR SWELLING. 90 Tablet 1 12/25/19 23 Active clonazePAM 0.5 MG Oral [...] bedtime 180 Tablet 3 01/17/20 23 Active Spironolactone 50 MG Oral Tablet (Aldactone)Indicat ions:GONZALEZ (nonalcoholic steatohepatitis),P ortal hypertension (HCC),Chronic liver disease and cirrhosis (HCC),Portal hypertensive gastropathy (HCC) Take 1 Tablet by mouth in the morning and 1 Tablet before bedtime. 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 Anxiety 08/05/2017 Xuuifkb-Cxnky-Wgamo disease 06/27/2015 Last Assessment & Plan: Frequent [...] 05/06/2018 019 Atherosclerotic heart diseas e of [place] coronary artery with other forms of angina [...] 10/31/201008/08 Acute coronary syndrome 10/30/2010 01/22/20 14 [place] Research Other*[id number] 02/02/2010 04/18/2014 Overview: [place] Registry, Dr Joel Kwon PI Obesity, morbid [...] thrombosis 06/17/2006 01/21/2014 intermediate current use of anticoagulant therapy 1 08/18/2005 [...] encounter Miscellaneous Notes * Telephone Encounter - Verito Hameed [facility] - 01/16/2023 11:39 AM EDTSigned Prescriptions: Disp Refills Spironolactone 50 MG Oral Tablet ([place]*180 Ta*3 Sig: Take 1 tablet by mouth in the morning and before bedtime Authorizing Provider: CARMEN SIFUENTES Ordering User: VERITO HAMEED * Telephone Encounter - [place], [facility] - 01/16/2023 6:04 AM EDT Pending Prescriptions: Disp Refills Spironolactone 50 MG Oral Tablet [Pharmacy*60 Tab*0 Sig: Take 1tablet by mouth in the morning and before bedtime documented in this encounter Plan of Treatment Upcoming Encounters Date Type Specialty Care Team Description 01/20/2023 [facility]medicine [facility]ins [facility]C [address] [facility] [address] Beverly Lozoya, [address] [place] [address] 01/20/2023 Pharmacy Pharmacy [facility] [address] [place] [address] 02/19/2023 Office Visit Gynecology Urology Nir Landa MD [address] [place] [address] Nurse Yury Fox [address] [place], [place] [address] 04/09/2023 Office Visit Urology Alfredo Panda MD [address] [address] 04/23/2023 Office Visit Infectious Disease Kendall Bell, DO [address] [place] [address] 04/28/2023 Office Visit Family Medicine Carmen Sifuentes MD [address] [place] [address] 05/05/2023 Office Visit Cardiology Sobia Brewster PA-C [address] [place] [address] 05/09/2023 Office Visit Gastroenterology Wendy Frias, DO [address] [place] [address] Scheduled Procedures Name Priority Associated Diagnoses Date/Ti [...] Additional history exists CKD PHOS USE SMARTSET 86543 10/24/202310/05, 02/18/2022, 02/17/2022, Additional history exists TSH 10/24/2023 10/23/2022, 02/05, 09/24/2021, Additional history exists CKD HGB USE SMARTSET 00987 11/22/202311/21, 11/21/2022, 04/25/2022, Additional history exists Colonoscopy [...] this encounter Medical Devices Implanted Type Area Medical Collector Device Identifier Shelf Expiration Date Model / Serial / Lot Jenna Rojas 6 [id number] - [id number] Implanted:Qty: 1 on 02/15/2011 at OR [facility] N/A: Chest DO NOT USE 07/21/2015 [id number] / / [id number] documented as of this encounter Visit Diagnoses Diagnosis GONZALEZ (nonalcoholic steatohepatitis) Other chronic nonalcoholic liver disease Portal hypertension (HCC) Portal hypertension Chronic liver disease and cirrhosis (HCC) Unspecified chronic liver disease without mention of alcohol Portal hypertensive gastropathy (HCC) Other specified disorder of stomach and duodenum documented in this encounter Advance Directives Documents on File Type Date Recorded Patient Customer Relations Coordinator Expl 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 Question Answer Comments Discussion of Advance Directives occurred with: Patient Does the patient have a Living Will? No Does the patient have Health Care Power of Claims Adjuster Supervisor? No Code Status History Code Status [...] the patient have Health Care Power of Claims Adjuster Supervisor? No Full Code 02/01/2010 4:02 PM 02/02/2010 4:09 PM This order reflects the patients wishes and were consensually agreed upon. Question Answer Comments Discussion of Advance Directives occurred with: Not Discussed Does the patient have a Living Will? No Does the patient have Health Care Power of Claims Adjuster Supervisor? No Healthcare Agents on File Name Relationship Healthcare Agent [facility] Communication Carolyn Ballard Adult Child Health Care Agent Care Teams Conveyor Tender Relationship Specialty Start Date End Date Carmen Sifuentes MD [address] [place] [address] PCP - General Family Medicine 07/16/17 documented as of this encounter
--- OUTSIDE RECORDS SUMMARY | 2023-05-17 12:17 | External Medical Summary | Summary of Care ---
Author Name Unknown Organization [facility] Address [address] [place] [address] Phone [phone] Care Team Providers Care Gate Person Name Role Phone Brian Domínguez MD Primary Care Provider [phone]- [phone] Reason for Visit * Reason Comments case management Encounter Details Date Type Department Care Team Description 01/06/2023 Ticket WorkerClaim Professional Practice [facility] [address] [facility] [place] [address] Nayla Bellamy, RN Medical home patient encounter* Allergies Active Allergy Reactions Severity Noted Date Comments Propoxyphene Hcl Rash Low 10/29/2010 Fentanyl Diarrhea Low 04/26/2010 anxiety Methocarbamol Medium 10/05/2020 Other reaction(s): Delirium Methocarbamol Low 04/15/2007 Zolpidem Low 10/05/2020 Other reaction(s): Confusion documented as of this encounter (statuses as of 01/06/2023) Medications Medication Sig Dispensed Refills Start Date End Date Status ARIPiprazole (ABILIFY) 2 MG Tablet Take 1 Tablet by mouth in the morning. 0 2015 Active venlafaxine XR (EFFEXOR XR) 150 MG [id number]:Dep ression Take 1 Cap by mouth daily. [...] 0 11/18/2017 Active Blood Glucose Monitoring Suppl ([employer] VERIO) w/Device KIT Use as directed. [...] Respimat 2.5 MCG/ACT Inhalation Aerosol Solution (Tiotropium [place] Monohydrate) Inhale by mouth 2 Puffs in the morning. 4 g 3 04/25/2022 Active Estradiol 0.1 MG/GM Vaginal Cream Administer into the vagina 1 g in the morning. 42.5 g 12 05/07/2022 Active OneTouch Verio In Vitro Strip (Glucose Blood)Indications:T ype 2 diabetes mellitus with diabetic neuropathy, with long-term current use of insulin (HCC) USE TO CHECK BLOOD SUGAR THREE TIMES A DAY 300 Strip 1 05/11/2022 Active Diclofenac Sodium 1 % External Gel (Voltaren) Apply topically to affected area 2 times a day. 150 g 3 06/05/2022 Active Vitamin D (Ergocalciferol) 1.25 MG (91480 UT) Oral Capsule (Drisdol)Indication s:Vitamin D deficiency TAKE ONE CAPSULE BY MOUTH WEEKLY 12 Capsule 3 06/19/2022 Active Benzonatate 100 MG Oral Capsule (Tessalon Perles) TAKE ONE CAPSULE BY MOUTH THREE TIMES DAILY NEEDED for cough. do not cut, crush or chew 50 Capsule 0 07/10/2022 Active AIRS Disposable Nebulizer Kit Use as directed 1 Kit 0 07/17/2022 Active Spironolactone 50 MG Oral Tablet (Aldactone)Indicati ons:GONZALEZ (nonalcoholic steatohepatitis),Po rtal hypertension (HCC),Chronic liver disease and cirrhosis (HCC),Portal hypertensive gastropathy (HCC) Take 1 Tablet by mouth in the morning and 1 Tablet before bedtime. 60 Tablet 5 07/25/2022 Active Ipratropium-Albuter ol 0.5-2.5 (3) MG/3ML Inhalation [...] DAILY 60 Capsule 5 08/22/2022 Active Nystatin 696953 UNIT/ML Mouth/Throat Suspension Swish and swallow 5 mL in the morning and 5 mL at noon and 5 mL in the evening and 5 mL before bedtime. For thrush.. 240 mL 1 09/05/2022 Active Tamsulosin HCl 0.4 MG Oral Capsule (Flomax) Take 1 Capsule by mouth in the morning. Every morning.. 90 Capsule 3 09/18/2022 Active Methenamine Hippurate 1 GM Oral Tablet (Hiprex)Indications :Recurrent UTI Take 1 Tablet by mouth in the morning and 1 Tablet before bedtime. 60 Tablet 3 09/18/2022 Active lamoTRIgine 25 MG Oral [...] the morning. 90 Tablet 1 10/23/2022 Active Sucralfate 1 GM Oral Tablet (Carafate)Indicatio ns:Gastroesophageal reflux disease with esophagitis without hemorrhage Take 1 Tablet by mouth in the morning. 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 No angina -continue toprol, ASA and statin Seasonal allergies 11/15/2021 Recurrent UTI 10/07/2021 Last Assessment & Plan: Followed by urology Pt is supposed to be on methenamine--will need to clarify with dgt that she is giving this. 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/2014 skilled nursing current use of anticoagulant therapy 1 08/18/2005 [...] as of this encounter (statuses as of 01/06/2023) Immunizations Name Administration Dates Next Due COVID-19 [...] Smokeless Tobacco: Never Comments:Parents and then zachary nikkoand smoked Alcohol Use Standard Drinks/Week Comments [...] Progress Notes * Nayla Bellamy RN - 01/06/2023 3:22 PM EDT CM Progress note S: Spoke with patient who returned my call. She reports ongoing abdominal pain. States the "ER doctors do nothing". She had a CT scan and no medication changes were made. Has decreased appetite, is drinking adequate fluids. + nausea, no vomiting. Denies any falls or injuries. Aware of upcoming appointments. O: phone call/ER follow up A: Alert and oriented. P: Reinforce monitoring and reporting any worsening symptoms. CM contact info given. * Nayla Bellamy RN - 01/06/2023 3:13 PM EDT 1. Follow-up Routine - ER f/u [facility] 12/29 2. Attempted Phone Call First Attempt 3. Call Outcome Left Voicemail/Message 4. Plan To attempt another outreach documented in this encounter Plan of Treatment Upcoming Encounters Date Type Specialty Care Team Description 01/08/2023 Office Visit Family Medicine Brian Domínguez MD [address], [place] [phone] 01/13/2023 Office Visit Cardiology Sobia Brewster PA-C [address] [place] [address] 01/14/2023 Office Visit Gynecology Urology Nir Landa MD [address] [place] [address] Nurse Yury Fox [address] [place] [address] 01/20/2023 Telemedicine [facility] Lashay Blevins PA-C [address] [place] [address] Bevrely Lozoya, Community Health Kettle Operator [address] [place] [address] [place] [id number] 01/22/2023 Office Visit Infectious Disease Vidya Fabian MD [address] [place], [place] [phone] 04/09/2023 Office Visit Urology Alfredo Panda MD [address] [place] [address] 04/28/2023 Office Visit Family Medicine Brian Domínguez MD [address] [place] [address] 05/09/2023 Office Visit Gastroenterology Wendy Frias, DO [address] [place] [address] Scheduled Procedures Name Priority Associated Diagnoses Date/Ti [...] Additional history exists CKD PHOS USE SMARTSET 43309 10/24/202310/05, 02/18/2022, 02/17/2022, Additional history exists TSH 10/24/2023 10/23/2022, 02/05, 09/24/2021, Additional history exists CKD HGB USE SMARTSET 44717 11/22/202311/21, 11/21/2022, 04/25/2022, Additional history exists Colonoscopy [...] this encounter Medical Devices Implanted Type Area Floorleader Device Identifier Shelf Expiration Date Model / Serial / Lot Sut Bob 6 M654g - [id number] Implanted:Qty: 1 on 02/15/2011 at OR [facility] N/A: Chest DO NOT USE 07/21/2015 [id number] / / [id number] documented as of this encounter Visit Diagnoses Diagnosis Medical home patient encounter- Primary Other specified examination documented in this encounter Advance Directives Documents on File Type Date Recorded Patient Tool Room Attendant 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 Question Answer Comments Discussion of Advance Directives occurred with: Patient Does the patient have a Living Will? No Does the patient have Health Care Power of Curriculum Facilitator? No Code Status History Code Status Date [...] the patient have Health Care Power of Curriculum Facilitator? No Full Code 02/01/2010 4:02 PM 02/02/2010 4:09 PM This order reflects the patients wishes and were consensually agreed upon. Question Answer Comments Discussion of Advance Directives occurred with: Not Discussed Does the patient have a Living Will? No Does the patient have Health Care Power of Curriculum Facilitator? No Healthcare Agents on File Name Relationship Healthcare Agent [facility] Communication Carolyn Goldmandrewnabila Adult Child Health Care Agent Care Teams Gate Person Relationship Specialty Start Date End Date Brian Domínguez MD [address] [place] [address] PCP - General Family Medicine 07/16/17 documented as of this encounter
--- OUTSIDE RECORDS SUMMARY | 2023-05-17 12:17 | External Medical Summary | Summary of Care ---
Author Name Unknown Organization [facility] Address [address] [place] [address] Phone [phone] Care Team Providers Care Seam Checker Name Role Phone Brian Domínguez MD Primary Care Provider [phone]- [phone] Reason for Visit * Reason Comments case management Encounter Details Date Type Department Care Team Description 01/06/2023 Elevator OperatorMembership Counselor Practice [facility] [address] [facility] [place] [address] Nayla Bellamy, RN Medical home patient encounter* [...] Active venlafaxine XR (EFFEXOR XR) 150 MG [id number]:Dep ression Take 1 Cap by mouth daily. [...] 0 11/18/2017 Active Blood Glucose Monitoring Suppl ([employer] VERIO) w/Device KIT Use as directed. Use [...] neuropathy, with long-term current use of insulin ([facility]) Inject 30 units under the skin twice daily 45 mL 3 04/16/2022 Active Insulin Glargine Solostar 100 UNIT/ML Subcutaneous Solution Pen-injector (Basaglar KwikPen)Indications :Type 2 diabetes mellitus with diabetic neuropathy, with long-term current use of insulin ([facility]) Inject 30 units under the skin [...] Respimat 2.5 MCG/ACT Inhalation Aerosol Solution (Tiotropium [place] Monohydrate) Inhale by mouth 2 Puffs in [...] 06/05/2022 Active Vitamin D (Ergocalciferol) 1.25 MG (62790 UT) Oral Capsule (Drisdol)Indication s:Vitamin D deficiency [...] DAILY 60 Capsule 5 08/22/2022 Active Nystatin 459492 UNIT/ML Mouth/Throat Suspension Swish and swallow 5 [...] 20 Capsule 1 12/20/2022 Active UltiCare Pen [place] 31G X 5 MM (Insulin Pen Needle) use TWICE DAILY 200 Each 12/23/2022 Active Torsemide 20 MG Oral Tablet (Demadex)Indication s:Atherosclerotic heart disease of [place] coronary artery with other forms of angina [...] mg daily Atherosclerotic heart diseas e of [place] coronary artery with other forms of angina pectoris 11/15/2021 Last Assessment & Plan: Stable. No angina -continue toprol, ASA and statin Seasonal allergies 11/15/2021 Recurrent UTI 10/07/2021 Last Assessment & Plan: Followed by urology Pt is supposed to be on methenamine--will need to clarify with dgt that she is giving this. 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 Follow-up Routine - ER f/u [facility] 12/29 2. Attempted Phone Call First Attempt 3. Call Outcome Left Voicemail/Message 4. Plan To attempt another outreach documented in this encounter Plan of Treatment Upcoming Encounters Date Type Specialty Care Team Description 01/08/2023 Office Visit Family Medicine Brian Domínguez MD [address] [place], [place] [phone] 01/13/2023 Office Visit Cardiology Sobia Brewster PA-C [address] [place] [address] 01/14/2023 Office Visit Gynecology Urology Nir Landa MD [address] [place] [address] Nurse Yury Fox [address] [place] [address] 01/20/2023 Telemedicine [facility] Lashay Blevins PA-C [address] [place] [address] Beverly Lozoya, Community Health Pmo Business Analyst [address] [place] [address] [place] [phone] 01/22/2023 Office Visit Infectious Disease Vidya Fabian MD [address] [place], [place] [phone] 04/09/2023 Office Visit Urology Alfredo Panda MD [address] [place] [address] 04/28/2023 Office Visit Family Medicine Brian Domínguez MD [address] [place] [address] 05/09/2023 Office Visit Gastroenterology Wendy Frias, DO [address] [place] [address] Scheduled Procedures Name Priority Associated Diagnoses Date/Ti [...] Additional history exists CKD PHOS USE SMARTSET 46503 10/24/202310/05, 02/18/2022, 02/17/2022, Additional history exists TSH 10/24/2023 10/23/2022, 02/05, 09/24/2021, Additional history exists CKD HGB USE SMARTSET 73877 11/22/202311/21, 11/21/2022, 04/25/2022, Additional history exists Colonoscopy [...] encounter Medical Devices Implanted Type Area Director Of Student Financial Services Device Identifier Shelf Expiration Date Model / Serial / Lot Sut Bob 6 M654g - [id number] Implanted:Qty: 1 on 02/15/2011 at OR [facility] N/A: Chest DO NOT USE 07/21/2015 [id number] / / [id number] documented as of this encounter Visit Diagnoses Diagnosis Medical home patient encounter- Primary Other specified examination documented in this encounter Advance Directives Documents on File Type Date Recorded Patient Production Stage Manager Expl anation POLST 05/06/2018 POLST Latest [...] the patient have Health Care Power of Truck Bracer? No Code Status History Code Status Date [...] the patient have Health Care Power of Truck Bracer? No Full Code 02/01/2010 4:02 PM 02/02/2010 4:09 PM This order reflects the patients wishes and were consensually agreed upon. Question Answer Comments Discussion of Advance Directives occurred with: Not Discussed Does the patient have a Living Will? No Does the patient have Health Care Power of Truck Bracer? No Healthcare Agents on File Name Relationship Healthcare Agent [facility] Communication Carolyn Goldmandrewnabila Adult Child Health Care Agent Care Teams Seam Checker Relationship Specialty Start Date End Date Brian Domínguez MD [address] [place] [address] PCP - General Family Medicine 07/16/17 documented as of this encounter
--- OUTSIDE RECORDS SUMMARY | 2023-05-17 12:17 | External Medical Summary | Summary of Care ---
Author Name Unknown Organization [facility] Address [address] [place] [address] Phone [phone] Care Team Providers Care Process Treater Name Role Phone Brian Domínguez MD Primary Care Provider [phone] Reason for Visit * Reason Onset Date Comments Referral 01/16/2023 Fax 01/16/2023 I faxed the PT r aron over to Arvin at [facility] [employer], at his request. Fax number was [phone]. Encounter Details Date Type Department Care Team Description 01/16/2023 Telephone [facility] [address] [place] [address] Brian Domínguez MD [address] [place] [address] Referral; Fax (I faxed the PT referral ove... Allergies Active Allergy Reactions Severity Noted Date [...] Active venlafaxine XR (EFFEXOR XR) 150 MG [id number]:Dep ression Take 1 Cap by mouth daily. With food. 30 Cap 5 09/02/2016 Active Additional Information Patient taking differently: 225 mgOral Daily(AM), With food.,Indications: Takes 225 mg total every morning with food (150 mg tab + 75 mg tab), Reported on 06/24/2022 Blood Glucose Monitoring Suppl ([employer] GLUCOMETER) w/Device KITIndications:Unco ntrolled type 2 diabetes mellitus without complication, without long-term current use of insulin Use as directed. Use as directed once daily 1 Kit 0 11/18/2017 Active Blood Glucose Monitoring Suppl ([employer]) w/Device KIT Use as directed. Use as directed. 1 Kit 0 10/31/2018 Active Spacer/Aero-Holding Chambers WISAM Use with inhaler. Wheezing/bronchitis . 1 Device 0 04/08/2019 Active Enerplant DelOurpalm Lancets 33G MISC USE UP TO FOUR TIMES A DAY Dx:E11.4 100 Each 5 09/30/2019 Active Lancet Devices (GoozzyUCH DELICA LANCING DEV) MISC Use four times [...] use of insulin ([facility]) Inject 30 units under the skin twice daily 45 mL 3 04/16/2022 Active Insulin Glargine Solostar 100 UNIT/ML Subcutaneous Solution Pen-injector ([employer]aglar KwikPen)Indications :Type 2 diabetes mellitus with diabetic neuropathy, with long-term current use of insulin ([facility]) Inject 30 units under the skin [...] Respimat 2.5 MCG/ACT Inhalation Aerosol Solution (Tiotropium [place] Monohydrate) Inhale by mouth 2 Puffs in the morning. 4 g 3 04/25/2022 Active Estradiol 0.1 MG/GM Vaginal Cream Administer into the vagina 1 g in the morning. 42.5 g 12 05/07/2022 Active OneTouch Verio In Vitro Strip (Glucose Blood)Indications:T ype 2 diabetes mellitus with diabetic neuropathy, with long-term current use of insulin ([facility]) USE TO CHECK BLOOD SUGAR THREE TIMES A DAY 300 Strip 1 05/11/2022 Active Diclofenac Sodium 1 % External Gel (Voltaren) Apply topically to affected area 2 times a day. 150 g 3 06/05/2022 Active Vitamin D (Ergocalciferol) 1.25 MG (42310 UT) Oral Capsule (Drisdol)Indication s:Vitamin D deficiency [...] DAILY 60 Capsule 5 08/22/2022 Active Nystatin 608111 UNIT/ML Mouth/Throat Suspension Swish and swallow 5 [...] 20 Capsule 1 12/20/2022 Active UltiCare Pen [place] 31G X 5 MM (Insulin Pen Needle) use TWICE DAILY 200 Each 3 12/23/2022 Active Torsemide 20 MG Oral Tablet (Demadex)Indication s:Atherosclerotic heart disease of [place] coronary artery with other forms of angina [...] BEFORE BEDTIME 60 Tablet 0 01/14/2023 Active Nystatin 915287 UNIT/GM External Powder (Nystop)Indications :Candidal intertrigo Apply topically to affected area 3 times a day. Apply to right breast until rash resolved. 30 g 0 01/15/2023 Active Hospital, Clinic, or Other Facility Administered [...] mg daily Atherosclerotic heart diseas e of [place] coronary artery with other forms of angina pectoris 11/15/2021 Last Assessment & Plan: Stable. No angina -continue toprol, ASA and statin Seasonal allergies 11/15/2021 Recurrent UTI 10/07/2021 Last Assessment & Plan: Followed by urology Pt is supposed to be on methenamine--will need to clarify with dgt that she is giving this. 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/2014 emt intermediate current use of anticoagulant therapy 1 [...] 05/04/2009 Overview: Per Diabetes Taxonomy. diet controlled, 9/1/05 hgba1c 5.4 ICD-10 update of inactive term [...] Miscellaneous Notes * Telephone Encounter - DENG Pedroza - 01/16/2023 10:55 AM EDT I faxed the PT referral over to Arvin at [employer], at his request. Fax number was [phone]. * Telephone Encounter - DENG Meyer - 01/16/2023 10:44 AM EDT Has the patient been seen for this problem? (Y/N)?: Y If No, an appt needs to be scheduled before a referral will be placed (exception: proceed with referral request if referral request is for a yearly routine appointment with speciality) Patient Name: Angelina Ballard Patient Primary care provider: Brian Domínguez MD Does this need to be an insurance referral (Y/N)?: Y If Yes, does the insurance referral need to be placed into the [employer] system? Name of preferred specialist: Merissa Mccullough Type of specialist: PT Location of specialist: [facility] [address] [place] [address] ([place] [facility]) Specialist's Phone #: [phone] Specialist's Fax #: N/A Reason for visit: Due to appt yesterday Date of visit: 01/20 documented in this encounter Plan of Treatment Upcoming Encounters Date Type Specialty Care Team Description 01/20/2023 Telemedicine [facility]ins [facility]C [address] [facility] [address] Beverly Lozoya, [address] [place] [address] 01/20/2023 Pharmacy Pharmacy [facility] [address] [place] [address] 02/19/2023 Office Visit Gynecology Urology Nir Landa MD [address] [place], [place] [address] Nurse Yury Fox [address] [place] [address] 04/09/2023 Office Visit Urology Alfredo Panda MD [address] [id number] 04/23/2023 Office Visit Infectious Disease Kendall Bell, DO [address] [place] [address] 04/28/2023 Office Visit Family Medicine Brian Domínguez MD [address] [place] [address] 05/05/2023 Office Visit Cardiology Sobia Brewster PA-C [address] [place], [place] [address] 05/09/2023 Office Visit Gastroenterology Wendy Frias, DO [address] [place], [place] [address] Scheduled Procedures Name Priority Associated Diagnoses Date/Ti [...] Additional history exists CKD PHOS USE SMARTSET 22448 10/24/202310/05, 02/18/2022, 02/17/2022, Additional history exists TSH 10/24/2023 10/23/2022, 02/05, 09/24/2021, Additional history exists CKD HGB USE SMARTSET 11228 11/22/202311/21, 11/21/2022, 04/25/2022, Additional history exists Colonoscopy [...] this encounter Medical Devices Implanted Type Area [employer]s Appliance Tech Device Identifier Shelf Expiration Date Model / Serial / Lot Sut Bob 6 [id number] - [id number] Implanted:Qty: 1 on 02/15/2011 at OR [facility] N/A: Chest DO NOT USE 07/21/2015 [id number] / / [id number] documented as of this encounter Advance Directives Documents on File Type Date Recorded Patient Eligibility Worker 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 Question Answer Comments Discussion of Advance Directives occurred with: Patient Does the patient have a Living Will? No Does the patient have Health Care Power of Product Strategy Director? No Code Status History Code Status [...] the patient have Health Care Power of Product Strategy Director? No Full Code 02/01/2010 4:02 PM 02/02/2010 4:09 PM This order reflects the patients wishes and were consensually agreed upon. Question Answer Comments Discussion of Advance Directives occurred with: Not Discussed Does the patient have a Living Will? No Does the patient have Health Care Power of Product Strategy Director? No Healthcare Agents on File Name Relationship Healthcare Agent [facility] p Communication Carolyn Ballard Adult Child Health Care Agent Care Teams Process Treater Relationship Specialty Start Date End Date Brian Domínguez MD [address] [place] [address] PCP - General Family Medicine 07/16/17 documented as of this encounter
--- OUTSIDE RECORDS SUMMARY | 2023-05-17 12:17 | External Medical Summary | Summary of Care ---
Author Name Unknown Organization [facility] Address [address] [place] [address] Phone [phone] Care Team Providers Care Overhead Cleaner Name Role Phone Brian Domínguez MD Primary Care Provider [phone]- [phone] Reason for Referral * Evaluate & Treat - Unlimited Visits (Within 10 days (routine)) - Authorized Specialty Diagnoses / Procedures Referred By Mitchell chavez Referred To Contact Physical Therapy / Physical Medicine And Rehab Diagnoses Lymphedema Kirby Trent MD [address] [place] [address] Referral ID Status Reason Start Date Expiration Date Visits Requested Visits Authorized [id number] Authorized Specialty Services Required 01/15/2023 999 999 Question Answer Referral Priority Within 10 days (routine) Comments Lymphedema clinic for LLE. Reason for Visit * Reason Comments Emergency Department Follow-Up Abrasions on both breasts-pt's daughter requesting to check, ongoing left leg swelling-fluid vs lymphedema Encounter Details Date Type Department Care Team Description [facility] [address] [facility] [place] [address] Kirby Trent MD [address] [place] [address] Candidal intertrigo*; Lymphedema; Fall, subsequent encounter; Intercostal muscle strain, subsequent encounter Allergies Active Allergy Reactions Severity Noted Date Comments Propoxyphene Hcl Rash Low 10/29/2010 Fentanyl Diarrhea Low 04/26/2010 anxiety Methocarbamol Medium 10/05/2020 Other reaction(s): Delirium Methocarbamol Low 04/15/2007 Zolpidem Low 10/05/2020 Other reaction(s): Confusion documented as of this encounter (statuses as of 01/15/2023) Medications Medication Sig Dispensed Refills Start Date End Date Status ARIPiprazole (ABILIFY) 2 MG Tablet Take 1 Tablet by mouth in the morning. 0 2015 Active venlafaxine XR (EFFEXOR XR) 150 MG [id number]:Dep ression Take 1 Cap by mouth daily. [...] 0 11/18/2017 Active Blood Glucose Monitoring Suppl ([employer] VERIO) w/Device KIT Use as directed. Use as directed. 1 Kit 0 10/31/2018 Active Spacer/Aero-Holding Chambers WISAM Use with inhaler. Wheezing/bronchitis . 1 Device 0 04/08/2019 Active OneBuddyuch Delica Lancets 33G MISC USE UP TO [...] long-term current use of insulin ([facility]) Inject 30 units under the skin twice daily 45 mL 3 04/16/2022 Active Insulin Glargine Solostar 100 UNIT/ML Subcutaneous Solution Pen-injector (Basaglar KwikPen)Indications :Type 2 diabetes mellitus with diabetic neuropathy, with long-term current use of insulin ([facility]) Inject 30 units under the skin twice [...] Respimat 2.5 MCG/ACT Inhalation Aerosol Solution (Tiotropium [place] Monohydrate) Inhale by mouth 2 Puffs in [...] 06/05/2022 Active Vitamin D (Ergocalciferol) 1.25 MG (31173 UT) Oral Capsule (Drisdol)Indication s:Vitamin D deficiency [...] DAILY 60 Capsule 5 08/22/2022 Active Nystatin 954803 UNIT/ML Mouth/Throat Suspension Swish and swallow 5 [...] 20 Capsule 1 12/20/2022 Active UltiCare Pen [place] 31G X 5 MM (Insulin Pen Needle) use TWICE DAILY 200 Each 3 12/23/2022 Active Torsemide 20 MG Oral Tablet (Demadex)Indication s:Atherosclerotic heart disease of [place] coronary artery with other forms of angina [...] BEDTIME 60 Tablet 0 01/14/2023 Active Nystatin 555603 UNIT/GM External Powder (Nystop)Indications :Candidal intertrigo Apply [...] as of this encounter (statuses as of 01/15/2023) Active Problems Problem Noted Date Medical home patient encounter 3 Hypertensive heart and kidne y disease with chronic diastolic congestive heart failure and stage 3a chronic kidney disease 12/28/2021 Last Assessment & Plan: Euvolemic, BP stable EF 55% 09/25 GFR 69 02/25 -Continue Torsemide 20 mg BID, Spironolactone 25 mg BID, Tropol XL 50 mg daily Atherosclerotic heart diseas e of [place] coronary artery with other forms of angina pectoris 11/15/2021 Last Assessment & Plan: Stable. No angina -continue toprol, ASA and statin Seasonal allergies 11/15/2021 Recurrent UTI 10/07/2021 Last Assessment & Plan: Followed by urology Pt is supposed to be on methenamine--will need to clarify with dgt that she is giving this. 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 Anxiety 08/05/2017 Pynbnck-Ityas-Wvafg disease 06/27/2015 Last Assessment & Plan: Frequent [...] as of this encounter (statuses as of 01/15/2023) Resolved Problems Problem Noted Date Resolved Date [...] 05/06/2018 019 Atherosclerotic heart diseas e of [place] coronary artery with other forms of angina [...] 10/31/201008/08 Acute coronary syndrome 10/30/2010 01/22/20 14 [employer] Research Other*[id number] 02/02/2010 04/18/2014 Overview: [place] [facility], Dr Joel Kwon PI Obesity, morbid [...] as of this encounter (statuses as of 01/15/2023) Immunizations Name Administration Dates Next Due COVID-19 [...] Sign Reading Time Taken Comments Blood Pressure 110/70 01/15/2023 12:44 PM EDT Pulse 62 01/15/2023 12:44 PM EDT Temperature - - Respiratory Rate 18 01/15/2023 12:44 PM EDT Oxygen Saturation - - Inhaled Oxygen Concentration - - Weight - - Height - - Body Mass Index - - documented in this encounter Progress Notes * Kirby Trent MD - 01/15/2023 12:42 PM EDT Images from the original note were not included. Assessment and Plan 1. Candidal intertrigo - Nystatin 403552 UNIT/GM External Powder (Nystop); Apply topically to affected area 3 times a day.Apply to right breast until rash resolved. Dispense: 30 g; Refill: 0 2. Lymphedema Multifactorial swelling of the left lower extremity with venous stasis, heart failure, lymphedema likely all contributing. Refer to physical therapy lymphedema clinic. - PHYSICAL THERAPY REFERRAL OP 3. Fall, subsequent encounter Multiple recent falls. Does have 24 hours supervision. Continue cyst of devices to assist with ambulation and mobility. No residual complaints from prior fall other than some minor left chest wall pain that is likely a bruise rib versus intercostal muscle strain. 4. Intercostal muscle strain, subsequent encounter Wrap-Up Follow up as scheduled. History of Present Illness The patient is a 72-year-old female with past medical history of type 2 diabetes with diabetic neuropathy, dyslipidemia, hypothyroidism, gastroparesis, CKD stage IIIA, hypertension, [place], bipolar 1 who presents to follow up multiple ED visits. Patient was seen on 12/26/2022 and again on 12/29/2022 at [facility] ED. ED visit on 12/26/2022 was result of a mechanical fall. Patient was ambulating using her walker andtripped over her dog's toy. It was unclear if she hit her head or lost consciousness. Vital signs are stable. Imaging including CT of the head and CT of the cervical spine along with x-ray of the femu r/pelvis/ankle/lumbar spine ruled out fracture. The patient was discharged to home. Patient presented to the ED again on 12/29/2022 with complaint of left-sided abdominal pain of 3 days' duration. Patient was evaluated with lab work that showed no elevated white count. She was mildly hyponatremic at 130. CT of the abdomen was obtained due to left-sided abdominal pain. No abnormality. No further workup completed and patient was discharged to home to follow up outpatient. Patient today reports no residual symptoms from the fall other than intermittent left-sided what seems to be rib pain. This is just underneath the left breast. She does note she would another fall last week. She slid out of her chair and onto the ground. No head trauma or loss of consciousness. [facility] aide lifted her back on her feet. She did obtain a small abrasion on the left breast. Otherwise no injuries. Chronic issue of left lower extremity swelling. Patient has a history of diastolic heart failure along with some likely venous stasis changes and potentially lymphedema given history of left hip surgery. She is tried torsemide and increasing doses of torsemide without significant improvement. She does wear a compression stocking. Also has what appears to be candidal intertrigo starting at the right breast. Physical Exam Vitals: 01/15/23 1244 Pulse: 62 Resp: 18 BP: 110/70 Physical Exam Physical Exam Vitals reviewed. Constitutional: Appearance: She is obese. Comments: Chronically ill appearing female using wheelchair for mobility. Cardiovascular: Heart sounds: No murmur heard. Pulmonary: Effort: Pulmonary effort is normal. No respiratory distress. Abdominal: Comments: Pain to palpation of the chest wall on the left. Musculoskeletal: Left lower leg: Edema present. Comments: Wearing bilateral ankle braces. Skin: Comments: Well healing abrasion on the left breast. There is erythematous patches with satellite lesions underneath the right breast. Neurological: General: No focal deficit present. documented in this encounter Nursing Notes * Brittney Turpin LPN - 01/15/2023 12:44 PM EDT The patient has been properly identified by confirmation of name and date of . Chief Complaint Patient presents with Emergency Department Follow-Up Abrasions on both breasts-pt's daughter requesting to check, ongoing left leg swelling-fluid vs lymphedema documented in this encounter Plan of Treatment Upcoming Encounters Date Type Specialty Care Team Description 01/20/2023 Telemedicine [facility] Lashay Blevins PA-Peter [address] [place] [address] Beverly Lozoya, Community Health Biology Manager [address] [place] [address] [place] [address] 01/20/2023 Pharmacy Pharmacy [facility] [address] [place] [address] 01/22/2023 Office Visit Infectious Disease Vidya Fabian MD [address] [place] [address] 04/09/2023 Office Visit Urology Alfredo Panda MD [address] [place] [address] 04/28/2023 Office Visit Family Medicine Brian Dom[facility]nguez MD [address] [facility] [address] 05/05/2023 Office Visit Cardiology Sobia Brewster PA-C [address] [place] [address] 05/09/2023 Office Visit Gastroenterology Wendy Frias DO [address] [place] [address] Scheduled Procedures Name Priority Associated Diagnoses Date/Ti me COLONOSCOPY FLEXIBLE PROXIMA L DIAGNOSTIC Recall Special screening for malignant neoplasms, colon Scheduled Referrals Name Type Priority Associated Diagnoses Orde r Schedule PHYSICAL THERAPY REFERRAL OP Referral Within 10 days (routine) Lymphedema Ordered: 01/15/2023 Health Maintenance Due Date Last Done Comments [...] Additional history exists CKD PHOS USE SMARTSET 41994 10/24/202310/05, 02/18/2022, 02/17/2022, Additional history exists TSH 10/24/2023 10/23/2022, 02/05, 09/24/2021, Additional history exists CKD HGB USE SMARTSET 00581 11/22/202311/21, 11/21/2022, 04/25/2022, Additional history exists Colonoscopy [...] this encounter Medical Devices Implanted Type Area Derrick Follower Device Identifier Shelf Expiration Date Model / Serial / Lot Sut Steel 6 [id number] - [id number] Implanted:Qty: 1 on 02/15/2011 at [place] [facility] N/A: Chest DO NOT USE 07/21/2015 [id number] / / [id number] documented as of this encounter Visit Diagnoses Diagnosis Candidal intertrigo- Primary Candidiasis of skin and nails Lymphedema Other lymphedema Fall, subsequent encounter Intercostal muscle strain, subsequent encounter documented in this encounter Advance Directives Documents on File Type Date Recorded Patient Experimental Psychologist Expl anation POL 05/06/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 Question Answer Comments Discussion of Advance Directives occurred with: Patient Does the patient have a Living Will? No Does the patient have Health Care Power of Billet Inspector? No Code Status History Code Status [...] the patient have Health Care Power of Billet Inspector? No Full Code 02/01/2010 4:02 PM 02/02/2010 4:09 PM This order reflects the patients wishes and were consensually agreed upon. Question Answer Comments Discussion of Advance Directives occurred with: Not Discussed Does the patient have a Living Will? No Does the patient have Health Care Power of Billet Inspector? No Healthcare Agents on File Name Relationship Healthcare Agent [facility] Communication Carolyn Goldmangerard Adult Child Health Care Agent Care Teams Overhead Cleaner Relationship Specialty Start Date End Date Brian Domínguez MD [address] [place] [address] PCP - General Family Medicine 07/16/17 documented as of this encounter
--- OUTSIDE RECORDS SUMMARY | 2023-05-17 12:17 | External Medical Summary | Summary of Care ---
Author Name Unknown Organization [facility] Address [address] [place] [address] Phone [phone] Care Team Providers Care International Recruiter Name Role Phone Brian Domínguez MD Primary Care Provider +1- [phone] Reason for Visit * Reason Onset Date Comments Emergency Department Follow-Up 01/08/2023 Encounter Details Date Type Department Care Team Description 01/08/2023 Telephone [facility] [address] [place] [address] Brian Domínguez MD [address] [place] [address] Emergency Department Follow-Up Allergies Active Allergy Reactions Severity Noted Date Comments Propoxyphene Hcl Rash Low 10/29/2010 Fentanyl Diarrhea Low 04/26/2010 anxiety Methocarbamol Medium 10/05/2020 Other reaction(s): Delirium Methocarbamol Low 04/15/2007 Zolpidem Low 10/05/2020 Other reaction(s): Confusion documented as of this encounter (statuses as of 01/08/2023) Medications Medication Sig Dispensed Refills Start Date End Date Status ARIPiprazole (ABILIFY) 2 MG Tablet Take 1 Tablet by mouth in the morning. 0 2015 Active venlafaxine XR (EFFEXOR XR) 150 MG [id number]:Dep ression Take 1 Cap by mouth daily. [...] 0 11/18/2017 Active Blood Glucose Monitoring Suppl (TVbeat VERIO) w/Device KIT Use as directed. Use as directed. 1 Kit 0 10/31/2018 Active Spacer/Aero-Holding Chambers WISAM Use with inhaler. Wheezing/bronchitis . 1 Device 0 04/08/2019 Active [employer] Shared [employer] Lancets 33G MISC USE UP TO FOUR TIMES A DAY Dx:E11.4 100 Each 5 09/30/2019 Active Lancet Devices (reeplay.itTOUCH DELICA LANCING DEV) MISC Use four times [...] Respimat 2.5 MCG/ACT Inhalation Aerosol Solution (Tiotropium [place] Monohydrate) Inhale by mouth 2 Puffs in [...] 06/05/2022 Active Vitamin D (Ergocalciferol) 1.25 MG (03206 UT) Oral Capsule (Drisdol)Indication s:Vitamin D deficiency [...] DAILY 60 Capsule 5 08/22/2022 Active Nystatin 952000 UNIT/ML Mouth/Throat Suspension Swish and swallow 5 [...] 20 Capsule 1 12/20/2022 Active UltiCare Pen [place] 31G X 5 MM (Insulin Pen Needle) use TWICE DAILY 200 Each 3 12/23/2022 Active Torsemide 20 MG Oral Tablet (Demadex)Indication s:Atherosclerotic heart disease of [place] coronary artery with other forms of angina [...] as of this encounter (statuses as of 01/08/2023) Active Problems Problem Noted Date Medical home patient encounter 3 Hypertensive heart and kidne y disease with chronic diastolic congestive heart failure and stage 3a chronic kidney disease 12/28/2021 Last Assessment & Plan: Euvolemic, BP stable EF 55% 09/25 GFR 69 02/25 -Continue Torsemide 20 mg BID, Spironolactone 25 mg BID, Tropol XL 50 mg daily Atherosclerotic heart diseas e of [place] coronary artery with other forms of angina pectoris 11/15/2021 Last Assessment & Plan: Stable. No angina -continue toprol, ASA and statin Seasonal allergies 11/15/2021 Recurrent UTI 10/07/2021 Last Assessment & Plan: Followed by urology Pt is supposed to be on methenamine--will need to clarify with dgt that she is giving this. 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 Anxiety 08/05/2017 Gvevahm-Higbm-Gdflh disease 06/27/2015 Last Assessment & Plan: Frequent [...] as of this encounter (statuses as of 01/08/2023) Resolved Problems Problem Noted Date Resolved Date [...] 05/06/2018 019 Atherosclerotic heart diseas e of [place] coronary artery with other forms of angina [...] 10/31/201008/08 Acute coronary syndrome 10/30/2010 01/22/20 14 BRONX Research Other*[id number] 02/02/2010 04/18/2014 Overview: [place] Registry, Dr Joel CASAS Obesity, morbid (more [...] as of this encounter (statuses as of 01/08/2023) Immunizations Name Administration Dates Next Due COVID-19 [...] encounter Miscellaneous Notes * Telephone Encounter - Leandra Hadley LPN - 01/08/2023 10:44 AM EDT Provider to address: Brian Domínguez MD Reason for Call: Hospital Follow-Up Contact: Telephone Call Contact Type: Care Coordination Outcome: Vomiting and diarrhea. "A little bit of the stomach bug" Denies abdominal pain now. Present after her fall. Good appetite, hydrating well. Denies fever or chills. Taking ABX currently for UTI. ER follow up appt rescheduled. Will call back if symptoms are worsening. Total Time including non face to face (minutes): 10 * Telephone Encounter - DENG Hodges - 01/08/2023 9:50 AM EDT Pt's daughter is calling to reschedule her mother's appointment. Mother has the flu. There is no hospital discharge appointments until Feb. Please call [phone] to reschedule. documented in this encounter Plan of Treatment Upcoming Encounters Date Type Specialty Care Team Description 01/13/2023 Office Visit Cardiology Sobia Brewster PA-C [address] [place] [address] 01/14/2023 Office Visit Gynecology Urology Nir Landa MD [address] [place] [address] Nurse Yury Fox [address] [place] [address] 01/15/2023 Office Visit Family Medicine Kirby Trent MD [address] [place] [address] 01/20/2023 Telemedicine [facility] Lashay Blevins PA-Peter [address] [place] [address] Beverly Lozoya, [facility] [address] [place] [id number] 01/22/2023 Office Visit Infectious Disease Vidya Fabian MD [address] [place] [address] 04/09/2023 Office Visit [facility] [address] [place] [phone] 04/28/2023 Office Visit Family Medicine Brian Domínguez MD [address] [place] [address] 05/09/2023 Office Visit Gastroenterology Wendy Frias, DO [address] [place] [address] Scheduled Procedures Name Priority Associated Diagnoses Date/Ti [...] Additional history exists CKD PHOS USE SMARTSET 62352 10/24/202310/05, 02/18/2022, 02/17/2022, Additional history exists TSH 10/24/2023 10/23/2022, 02/05, 09/24/2021, Additional history exists CKD HGB USE SMARTSET 71141 11/22/202311/21, 11/21/2022, 04/25/2022, Additional history exists Colonoscopy [...] this encounter Medical Devices Implanted Type Area Bottom Saw Operator Device Identifier Shelf Expiration Date Model / Serial / Lot Jenna Rojas 6 [id number] - [id number] Implanted:Qty: 1 on 02/15/2011 at [place] [facility] [place]A: Chest DO NOT USE 07/21/2015 [id number] / / [id number] documented as of this encounter Advance Directives Documents on File Type Date Recorded Patient Ob/Gyn Physician Jose GARZON 05/06/2018 POL Latest Code Status on File Code Status Date Activated Date Inactivated Comments Full Code 06/25/2011 3:09 AM 06/26/2011 9:47 PM Thi s order reflects the patients wishes and were consensually agreed upon. Question Answer Comments Discussion of Advance Directives occurred with: Patient Does the patient have a Living Will? No Does the patient have Health Care Power of Automotive Production Worker? No Code Status History Code Status Date [...] the patient have Health Care Power of Automotive Production Worker? No Full Code 02/01/2010 4:02 PM 02/02/2010 4:09 PM This order reflects the patients wishes and were consensually agreed upon. Question Answer Comments Discussion of Advance Directives occurred with: Not Discussed Does the patient have a Living Will? No Does the patient have Health Care Power of Automotive Production Worker? No Healthcare Agents on File Name Relationship Healthcare Agent Relationshi p Communication Carolyn Ballard Adult Child Health Care Agent Care Teams International Recruiter Relationship Specialty Start Date End Date Brian Domínguez MD [address] [facility] [place] [address] PCP - General Family Medicine 07/16/17 documented as of this encounter
--- OUTSIDE RECORDS SUMMARY | 2023-05-17 12:17 | External Medical Summary | Summary of Care ---
Author Name Unknown Organization [facility] Address [address] [place] [address] Phone [phone] Care Team Providers Care Forest Management Teacher Name Role Phone Brian Domínguez MD Primary Care Provider +1- [phone] Reason for Visit * Reason Onset Date Comments Appointment 01/13/2023 Encounter Details Date Type Department Care Team Description 01/13/2023 Telephone [facility] [place] [address] [place], [place] [id number] Services, Scheduling [address] [place] [address] Appointment (/) Allergies Active Allergy Reactions Severity Noted Date Comments Propoxyphene Hcl Rash Low 10/29/2010 Fentanyl Diarrhea Low 04/26/2010 anxiety Methocarbamol Medium 10/05/2020 Other reaction(s): Delirium Methocarbamol Low 04/15/2007 Zolpidem Low 10/05/2020 Other reaction(s): Confusion documented as of this encounter (statuses as of 01/13/2023) Medications Medication Sig Dispensed Refills Start Date End Date Status ARIPiprazole (ABILIFY) 2 MG Tablet Take 1 Tablet by mouth in the morning. 0 2015 Active venlafaxine XR (EFFEXOR XR) 150 MG [id number]:Dep ression Take 1 Cap by mouth daily. [...] 0 11/18/2017 Active Blood Glucose Monitoring Suppl (VookUCH VERIO) w/Device KIT Use as directed. Use [...] Respimat 2.5 MCG/ACT Inhalation Aerosol Solution (Tiotropium [place] Monohydrate) Inhale by mouth 2 Puffs in [...] 06/05/2022 Active Vitamin D (Ergocalciferol) 1.25 MG (29395 UT) Oral Capsule (Drisdol)Indication s:Vitamin D deficiency [...] DAILY 60 Capsule 5 08/22/2022 Active Nystatin 585456 UNIT/ML Mouth/Throat Suspension Swish and swallow 5 [...] days.. 20 Capsule 12/20/2022 Active UltiCare Pen [place] 31G X 5 MM (Insulin Pen Needle) use TWICE DAILY 200 Each 3 12/23/2022 Active Torsemide 20 MG Oral Tablet (Demadex)Indication s:Atherosclerotic heart disease of [place] coronary artery with other forms [...] as of this encounter (statuses as of 01/13/2023) Active Problems Problem Noted Date Medical home patient encounter 3 Hypertensive heart and kidne y disease with chronic diastolic congestive heart failure and stage 3a chronic kidney disease 12/28/2021 Last Assessment & Plan: Euvolemic, BP stable EF 55% 09/25 GFR 69 02/25 -Continue Torsemide 20 mg BID, Spironolactone 25 mg BID, Tropol XL 50 mg daily Atherosclerotic heart diseas e of [place] coronary artery with other forms of angina pectoris 11/15/2021 Last Assessment & Plan: Stable. No angina -continue toprol, ASA and statin Seasonal allergies 11/15/2021 Recurrent UTI 10/07/2021 Last Assessment & Plan: Followed by urology Pt is supposed to be on methenamine--will need to clarify with dgt that she is giving this. 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 Anxiety 08/05/2017 Ykonebu-Dhcqk-Mwbjf disease 06/27/2015 Last Assessment & Plan: Frequent [...] as of this encounter (statuses as of 01/13/2023) Resolved Problems Problem Noted Date Resolved Date [...] 05/06/2018 019 Atherosclerotic heart diseas e of [place] coronary artery with other forms [...] 10/31/201008/08 Acute coronary syndrome 10/30/2010 01/22/20 14 BAYARD Research Other*[id number] 02/02/2010 04/18/2014 Overview: [place] Registry, Dr Joel CASAS Obesity, morbid (more [...] as of this encounter (statuses as of 01/13/2023) Immunizations Name Administration Dates Next Due COVID-19 [...] * Telephone Encounter - DENG Cruz - 01/13/2023 1:17 PM EDT LMOM for pt to confirm return kaco telemed for 01/20 at 3pm documented in this encounter Plan of Treatment Upcoming Encounters Date Type Specialty Care Team Description 01/14/2023 Office Visit Gynecology Urology Nir Landa MD [address] [place] [address] Nurse Yury Fox [address] [place] [address] 01/15/2023 Office Visit Family Medicine Kirby Trent MD [address] [place] [address] 01/20/2023 Telemedicine [facility] Lsahay Blevins PA-Peter [address] [place] [address] Beverly Lozoya [facility] [address] [place] [address] 01/20/2023 Pharmacy Pharmacy [facility] [address] [place] [address] 01/22/2023 Office Visit Infectious Disease Vidya Fabian MD [address] [place] [address] 04/09/2023 Office Visit Urology Alfredo Panda MD [address] [place] [address] 04/28/2023 Office Visit Family Medicine Brian Domínguez MD [address] [place], [place] [phone] 05/05/2023 Office Visit Cardiology Sobia Brewster PA-C [address] [place] [address] 05/09/2023 Office Visit Gastroenterology Wendy Frias DO [address] [place] [address] Scheduled Procedures Name Priority Associated Diagnoses Date/Ti [...] Additional history exists CKD PHOS USE SMARTSET 86572 10/24/202310/05, 02/18/2022, 02/17/2022, Additional history exists TSH 10/24/2023 10/23/2022, 02/05, 09/24/2021, Additional history exists CKD HGB USE SMARTSET 80617 11/22/202311/21, 11/21/2022, 04/25/2022, Additional history exists Colonoscopy [...] encounter Medical Devices Implanted Type Area Revenue Research Analyst Device Identifier Shelf Expiration Date Model / Serial / Lot Jenna Rojas 6 [id number] - [id number] [place]ed:[place] 1 [place] [facility] [place] Chest DO NOT USE 07/21/2015 [id number] / / [id number] documented as of this encounter Advance Directives Documents on File Type Date Recorded Patient Predictive Maintenance Specialist Expl anation POLST 05/06/2018 POLST Latest [...] the patient have Health Care Power of Pediatrics Teacher? No Code Status History Code Status Date [...] the patient have Health Care Power of Pediatrics Teacher? No Full Code 02/01/2010 4:02 PM 02/02/2010 4:09 PM This order reflects the patients wishes and were consensually agreed upon. Question Answer Comments Discussion of Advance Directives occurred with: Not Discussed Does the patient have a Living Will? No Does the patient have Health Care Power of Pediatrics Teacher? No Healthcare Agents on File Name Relationship Healthcare Agent [facility] Communication Carolyn Goldmandrewnabila Adult Child Health Care Agent Care Teams Forest Management Teacher Relationship Specialty Start Date End Date Brian Domínguez MD [address] [place] [address] PCP - General Family Medicine 07/16/17 documented as of this encounter
--- OUTSIDE RECORDS SUMMARY | 2023-05-17 12:17 | External Medical Summary | Summary of Care ---
Author Name Unknown Organization [facility] Address [address] [place] [address] Phone [phone] Care Team Providers Care Senior Director Insight Name Role Phone Brian Domínguez MD Primary Care Provider +1- [phone] Reason for Visit * Reason Comments eRx-Medication Refill methamine Encounter Details Date Type Department Care Team Description 01/14/2023 Refill Urology, [facility] [address] [facility] [place] [address] Alfredo Ahmadi MD [address] [place] [address] Recurrent UTI Allergies Active Allergy Reactions Severity Noted Date Comments Propoxyphene Hcl Rash Low 10/29/2010 Fentanyl Diarrhea Low 04/26/2010 anxiety Methocarbamol Medium 10/05/2020 Other reaction(s): Delirium Methocarbamol Low 04/15/2007 Zolpidem Low 10/05/2020 Other reaction(s): Confusion documented as of this encounter (statuses as of 01/14/2023) Medications Medication Sig Dispensed Refills Start Date End Date Status ARIPiprazole (ABILIFY) 2 MG Tablet Take 1 Tablet by mouth in the morning. 0 07/11/19 16 Active venlafaxine XR (EFFEXOR XR) 150 MG GA11Ouxiumpbqgy:De pression Take 1 Cap by mouth daily. With food. 30 Cap 5 09/02/19 17 Active Additional Information Patient taking differently: 225 mgOral Daily(AM), With food.,Indications: Takes 225 mg total every morning with food (150 mg tab + 75 mg tab), Reported on 06/24/2022 Blood Glucose Monitoring Suppl ([employer]-Emerging Tigers GLUCOMETER) w/Device KITIndications:Unc ontrolled type 2 diabetes mellitus without complication, without long-term current use of insulin Use as directed. Use as directed once daily 1 Kit 0 11/19/19 18 Active Blood Glucose Monitoring Suppl ([place]) w/Device KIT Use as directed. Use as directed. 1 Kit 0 11/01/19 19 Active Spacer/Aero-Holdin g Chambers WISAM Use with inhaler. Wheezing/bronchiti s. 1 Device 0 04/08/20 19 Active Pro Breath MD DelMonths Of Me Lancets 33G MISC USE UP TO FOUR TIMES A DAY Dx:E11.4 100 Each 5 09/30/19 20 Active Lancet Devices (Fusepoint Managed ServicesUCH DELICA LANCING DEV) MISC Use four times [...] long-term current use of insulin ([facility]) Inject 30 units under the skin twice daily 45 mL 3 04/17/20 22 Active Metoprolol Succinate ER 25 MG Oral Tablet Extended Release 24 Hour (toPROL XL) Take by mouth 1 Tablet in the morning. 90 Tablet 3 04/19/20 22 Active Atorvastatin Calcium 40 MG Oral Tablet (Lipitor)Melotio ns:Dyslipidemia, goal LDL below 70 Take by mouth 1 Tablet in the morning. 90 Tablet 3 04/25/20 22 Active Spiriva Respimat 2.5 MCG/ACT Inhalation Aerosol Solution (Tiotropium [place] Monohydrate) Inhale by mouth 2 Puffs in [...] 22 Active Vitamin D (Ergocalciferol) 1.25 MG (44079 UT) Oral Capsule (Drisdol)Melotio ns:Vitamin D deficiency TAKE ONE CAPSULE BY MOUTH WEEKLY 12 Capsule 3 06/19/20 22 Active Benzonatate 100 MG Oral Capsule (Tessalon [place]) TAKE ONE CAPSULE BY MOUTH THREE TIMES DAILY NEEDED for cough. do not cut, crush or chew 50 Capsule 0 07/10/19 23 Active AIRS Disposable Nebulizer Kit Use as directed 1 Kit 0 07/17/19 23 Active Spironolactone 50 MG Oral Tablet (Aldactone)Indicat ions:GONZALEZ (nonalcoholic steatohepatitis),P ortal hypertension (HCC),Chronic liver disease and cirrhosis (HCC),Portal hypertensive gastropathy (HCC) Take 1 Tablet by mouth in the morning and 1 Tablet before bedtime. 60 Tablet 5 07/25/19 23 Active Ipratropium-Albute rol 0.5-2.5 (3) MG/3ML [...] 60 Capsule 5 08/22/19 23 Active Nystatin 481440 UNIT/ML Mouth/Throat Suspension Swish and swallow 5 [...] bedtime. For 10 days.. 20 Capsule 1 12/21/19 23 Active UltiCare Pen [place] 31G X 5 MM (Insulin Pen Needle) use TWICE DAILY 200 Each 3 12/24/19 23 Active Torsemide 20 MG Oral Tablet (Demadex)Indicatio ns:Atherosclerotic heart disease of [place] coronary artery with other forms of angina [...] BEDTIME 60 Tablet 0 01/15/20 23 Active Methenamine Hippurate 1 GM Oral Tablet (Hiprex)Indication s:Recurrent UTI Take 1 Tablet by mouth in the morning and 1 Tablet before bedtime. 60 Tablet 3 09/19/19 23 023 Discontinued Hospital, Clinic, or Other [...] as of this encounter (statuses as of 01/14/2023) Active Problems Problem Noted Date Medical home patient encounter 3 Hypertensive heart and kidne y disease with chronic diastolic congestive heart failure and stage 3a chronic kidney disease 12/28/2021 Last Assessment & Plan: Euvolemic, BP stable EF 55% 09/25 GFR 69 02/25 -Continue Torsemide 20 mg BID, Spironolactone 25 mg BID, Tropol XL 50 mg daily Atherosclerotic heart diseas e of [place] coronary artery with other forms of angina pectoris 11/15/2021 Last Assessment & Plan: Stable. No angina -continue toprol, ASA and statin Seasonal allergies 11/15/2021 Recurrent UTI 10/07/2021 Last Assessment & Plan: Followed by urology Pt is supposed to be on methenamine--will need to clarify with dgt that she is giving this. 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 Anxiety 08/05/2017 Sqqcszu-Dhyzd-Aluxu disease 06/27/2015 Last Assessment & Plan: Frequent [...] as of this encounter (statuses as of 01/14/2023) Resolved Problems Problem Noted Date Resolved Date [...] 05/06/2018 019 Atherosclerotic heart diseas e of [place] coronary artery with other forms of angina [...] 10/31/201008/08 Acute coronary syndrome 10/30/2010 01/22/20 14 CAYUGA Research Other*[id number] 02/02/2010 04/18/2014 Overview: [place] Registry, Dr Joel CASAS Obesity, morbid (more [...] as of this encounter (statuses as of 01/14/2023) Immunizations Name Administration Dates Next Due COVID-19 [...] Telephone Encounter - Alfredo Ahmadi MD - 01/14/2023 8:37 AM EDTSigned Prescriptions: Disp Refills Methenamine Hippurate 1 GM Oral Tablet (Hi*60 Tab*0 Sig: TAKE ONE TABLET BY MOUTH IN THE MORNING AND ONE BEFORE BEDTIME Authorizing Provider: ALFREDO AHMADI * Telephone Encounter - Hue Coates LPN - 01/14/2023 8:25 AM EDTPending Prescriptions: Disp Refills Methenamine Hippurate 1 GM Oral Tablet [Ph*60 Tab*0 Sig: TAKE ONE TABLET BY MOUTH IN THE MORNING AND ONE BEFORE BEDTIME * Telephone Encounter - Hue Coates LPN - 01/14/2023 8:24 AM EDT Refill of methamine requested Last appt: 09/18/2022 (in office), Visit date not found (telemedicine) Next appt: 04/09/2023 Review of patient's allergies indicates: Allergen Reactions Methocarbamol Other reaction(s): Delirium Darvon [Propoxyphene Hcl] Rash Fentanyl Diarrhea anxiety Robaxin [Methocarbamol] Zolpidem Other reaction(s): Confusion Thank you, Yudith documented in this encounter Plan of Treatment Upcoming Encounters Date Type Specialty Care Team Description 01/14/2023 Office Visit Gynecology Urology Nir Landa MD [address] [place] [address] Nurse Yury Fox [address] [place] [address] 01/15/2023 Office Visit Family Medicine Kirby Trent MD [address] [place] [address] 01/20/2023 Telemedicine [facility] Lashay Blevins PA-C [address] [place] [address] Beverly Lozoya [address] [place] [address] 01/20/2023 Pharmacy [facility] [address] [place] [address] 01/22/2023 Office Visit Infectious Disease Vidya Fabian MD [address] [place] [address] 04/09/2023 Office Visit Urology Alfredo Ahmadi MD [address] [facility] [address] [place] [address] 04/28/2023 Office Visit Family Medicine Brian Domínguez MD [address] [place], [place] [address] 05/05/2023 Office Visit Cardiology Sobia Brewster, JIMMY [address] [place] [address] 05/09/2023 Office Visit Gastroenterology Wendy Frias DO [address] [place] [address] Scheduled Procedures Name Priority Associated Diagnoses Date/Ti [...] Additional history exists CKD PHOS USE SMARTSET 31024 10/24/2023 04/03/2023, 02/18/2022, 02/17/2022, Additional history exists TSH 10/24/2023 10/23/2022, 02/05, 09/24/2021, Additional history exists CKD HGB USE SMARTSET 79608 11/22/202311/21, 11/21/2022, 04/25/2022, Additional history exists Colonoscopy [...] this encounter Medical Devices Implanted Type Area Shipyard Painter Apprentice Device Identifier Shelf Expiration Date Model / Serial / Lot Jenna Rojas 6 M654g - [id number] Implanted:Qty: 1 on 02/15/2011 at [place] [facility] [place] N/A: Chest DO NOT USE 07/21/2015 [id number] / / [id number] documented as of this encounter Visit Diagnoses Diagnosis Recurrent UTI Urinary tract infection, site not specified documented in this encounter Advance Directives Documents on File Type Date Recorded Patient Teletype Mechanic Expl anation POLST 05/06/2018 POLST Latest [...] the patient have Health Care Power of Slitter Service And Setter? No Code Status History Code Status [...] the patient have Health Care Power of Slitter Service And Setter? No Full Code 02/01/2010 4:02 PM 02/02/2010 4:09 PM This order reflects the patients wishes and were consensually agreed upon. Question Answer Comments Discussion of Advance Directives occurred with: Not Discussed Does the patient have a Living Will? No Does the patient have Health Care Power of Slitter Service And Setter? No Healthcare Agents on File Name Relationship Healthcare Agent [facility] Communication Carolyn Ballard Adult Child Health Care Agent Care Teams Senior Director Insight Relationship Specialty Start Date End Date Brian Domínguez MD [address] [place] [address] PCP - General Family Medicine 07/16/17 documented as of this encounter
--- OUTSIDE RECORDS SUMMARY | 2023-05-17 12:18 | External Medical Summary | Summary of Care ---
Author Name Unknown Organization [facility] Address [address] [place] [address] Phone [phone] Care Team Providers Care Night Patrol Inspector Name Role Phone Carmen Sifuentes MD Primary Care Provider [phone] Reason for Referral * Medication Prior Authorization - Pending Review Specialty Diagnoses / Procedures Referred By Mitchell chavez Referred To Contact Diagnoses Lumbar spondylosis Carmen Sifuentes MD [address] [place] [address] Referral ID Status Reason Start Date Expiration Date V isits Requested Visits Authorized [id number] Pending Review 999 999 * Medication Prior Authorization - Pending Review Specialty Diagnoses / Procedures Referred By Mitchell chavez Referred To Contact Diagnoses Lumbar spondylosis Carmen Sifuentes MD [address] [place] [address] Referral ID Status Reason Start Date Expiration Date V isits Requested Visits Authorized [id number] Pending Review 999 999 Reason for Visit * Reason Onset Date Comments Medication Refill 12/25/2022 Encounter Details Date Type Department Care Team Description 12/25/2022 Refill [place] [address] [place] [address] Carmen Sifuentes MD [address] [place] [address] Bipolar I disorder, most recent episode depressed, moderate (HCC); Lumbar spondylosis Allergies Active Allergy Reactions Severity Noted Date Comments Propoxyphene Hcl Rash Low 10/29/2010 Fentanyl Diarrhea Low 04/26/2010 anxiety Methocarbamol Medium 10/05/2020 Other reaction(s): Delirium Methocarbamol Low 04/15/2007 Zolpidem Low 10/05/2020 Other reaction(s): Confusion documented as of this encounter (statuses as of 12/26/2022) Medications Medication Sig Dispensed Refills Start Date End Date Status ARIPiprazole (ABILIFY) 2 MG Tablet Take 1 Tablet by mouth in the morning. 0 6 Active venlafaxine XR (EFFEXOR XR) 150 MG [id number]:Dep ression Take 1 Cap by mouth daily. [...] 0 8 Active Blood Glucose Monitoring Suppl (GocietyUCH VERIO) w/Device KIT Use as directed. Use [...] with long-term current use of insulin ([facility]) Inject 30 units under the skin twice daily 45 mL 3 2 Active Insulin Glargine Solostar 100 UNIT/ML Subcutaneous Solution Pen-injector (Basaglar KwikPen)Indications :Type 2 diabetes mellitus with diabetic neuropathy, with long-term current use of insulin ([facility]) Inject 30 units under the skin twice [...] the morning. 42.5 g 12 2 Active OneTouch Verio In Vitro Strip (Glucose Blood)Indications:T ype 2 diabetes mellitus with diabetic neuropathy, with long-term current use of insulin (HCC) USE TO CHECK BLOOD SUGAR THREE TIMES A DAY 300 Strip 1 2 Active Diclofenac Sodium 1 % External Gel (Voltaren) Apply topically to affected area 2 times a day. 150 g 3 2 Active Vitamin D (Ergocalciferol) 1.25 MG (52707 UT) Oral Capsule (Drisdol)Indication s:Vitamin D deficiency TAKE ONE CAPSULE BY MOUTH WEEKLY 12 Capsule 3 2 Active Benzonatate 100 MG Oral Capsule (Tessalon Perles) TAKE ONE CAPSULE BY MOUTH THREE TIMES DAILY NEEDED for cough. do not cut, crush or chew 50 Capsule 0 3 Active AIRS Disposable Nebulizer Kit Use as directed 1 Kit 0 3 Active Spironolactone 50 MG Oral Tablet (Aldactone)Indicati ons:GONZALEZ (nonalcoholic steatohepatitis),Po rtal hypertension (HCC),Chronic liver disease and cirrhosis (HCC),Portal hypertensive gastropathy (HCC) Take 1 Tablet by mouth in the morning and 1 Tablet before bedtime. 60 Tablet 5 3 Active Ipratropium-Albuter ol 0.5-2.5 (3) MG/3ML [...] DAILY 60 Capsule 5 3 Active Nystatin 869452 UNIT/ML Mouth/Throat Suspension Swish and swallow 5 mL in the morning and 5 mL at noon and 5 mL in the evening and 5 mL before bedtime. For thrush.. 240 mL 1 3 Active Tamsulosin HCl 0.4 MG Oral Capsule (Flomax) Take 1 Capsule by mouth in the morning. Every morning.. 90 Capsule 3 3 Active Methenamine Hippurate 1 GM Oral Tablet (Hiprex)Indications :Recurrent UTI Take 1 Tablet by mouth in the morning and 1 Tablet before bedtime. 60 Tablet 3 3 Active lamoTRIgine 25 MG Oral [...] the morning. 90 Tablet 1 3 Active Sucralfate 1 GM Oral Tablet (Carafate)Indicatio ns:Gastroesophageal reflux disease with esophagitis without hemorrhage Take 1 Tablet by mouth in the morning. 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 MAY TAKE 1 ADDITIONAL TABLET NEEDED FOR SWELLING. 90 Tablet 1 3 Active clonazePAM 0.5 MG Oral Tablet (KlonoPIN)Indicatio ns:Bipolar I disorder, most recent episode depressed, moderate (HCC) TAKE ONE TABLET BY MOUTH THREE TIMES DAILY 90 Tablet 0 3 Active Morphine Sulfate ER 15 MG Oral Tablet Extended Release (Ms Contin)Indications: Lumbar spondylosis Take 1 Tablet by mouth at bedtime as needed for Pain, Severe. 30 Tablet 0 3 Active oxyCODONE HCl 5 MG Oral Tablet (Oxy IR)Indications:Lumb ar spondylosis Take 1 Tablet by mouth every 8 hours as needed (pain). 60 Tablet 0 3 Active Potassium Chloride Mag ER 20 MEQ Oral Tablet Extended Release (Klor-Con M20) TAKE 1 TABLET BY MOUTH EVERY MORNING - use when taking additional torsemide 30 Tablet 0 3 Active Morphine Sulfate ER 15 MG Oral Tablet Extended Release (Ms Contin)Indications: Lumbar spondylosis Take 1 Tablet by mouth at bedtime as needed for Pain, Severe. 30 Tablet 0 3 12/26/19 23 Discontinu ed(Refill) oxyCODONE HCl 5 MG Oral Tablet (Oxy IR)Indications:Lumb ar spondylosis Take 1 Tablet by mouth every 8 hours as needed (pain). 60 Tablet 0 3 12/26/19 23 Discontinu ed(Refill) clonazePAM 0.5 MG Oral Tablet (KlonoPIN)Indicatio ns:Bipolar I disorder, most recent episode depressed, moderate (HCC) TAKE ONE TABLET BY MOUTH THREE TIMES DAILY 90 Tablet 0 3 12/26/19 23 Discontinu ed(Refill) Hospital, Clinic, or Other [...] as of this encounter (statuses as of 12/26/2022) Active Problems Problem Noted Date Hypertensive heart and kidne y disease with chronic diastolic congestive heart failure and stage 3a chronic kidney disease 12/28/2021 Last Assessment & Plan: Euvolemic, BP stable EF 55% 09/25 GFR 69 02/25 -Continue Torsemide 20 mg BID, Spironolactone 25 mg BID, Tropol XL 50 mg daily 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 No angina -continue toprol, ASA and statin Seasonal allergies 11/15/2021 Recurrent UTI 10/07/2021 Last Assessment & Plan: Followed by urology Pt is supposed to be on methenamine--will need to clarify with dgt that she is giving this. 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/2014 senior care current use of anticoagulant therapy 1 [...] as of this encounter (statuses as of 12/26/2022) Immunizations Name Administration Dates Next Due COVID-19 [...] Telephone Encounter - Carmen Sifuentes MD - 12/26/2022 5:01 PM EDTSigned Prescriptions: Disp Refills clonazePAM 0.5 MG Oral Tablet (KlonoPIN) 90 Tab*0 Sig: TAKE ONE TABLET BY MOUTH THREE TIMES DAILYAuthorizing Provider: CARMEN SIFUENTES Morphine Sulfate ER 15 MGOral Tablet Exte*30 Tab*0 Sig: Take 1 Tablet by mouth at bedtime as needed for Pain, Severe.Authorizing Provider: CARMEN SIFUENTES oxyCODONE HCl 5 MG Oral Tablet (Oxy IR) 60 Tab*0 Sig: Take 1 Tablet by mouth every 8 hours as needed (pain).Authorizing Provider: CARMEN SIFUENTES- * Telephone Encounter - Ramon Bragg [facility] - 12/26/2022 12:03 PM EDT Pending Prescriptions: Disp Refills clonazePAM 0.5 MG Oral Tablet (KlonoPIN) 90 Tab*0 Sig: TAKE ONE TABLET BY MOUTH THREE TIMES DAILY Morphine Sulfate ER 15 MG Oral Tablet Exte*30 Tab*0 Sig: Take 1 Tablet by mouth at bedtime as needed for Pain, Severe. oxyCODONE HCl 5 MG Oral Tablet (Oxy IR) 60 Tab*0 Sig: Take 1 Tablet by mouth every 8 hours as needed (pain). * Telephone Encounter - Ramon Bragg [facility] - 12/26/2022 12:02 PM EDT I have reviewed the patients controlled substance dispensing history in the Prescription Drug Monitoring Program in compliance with the [facility] regulations before prescribing a controlled substance. PDMP checked on 12/26/2022. Pending Prescriptions: Disp Refills clonazePAM 0.5 MG Oral Tablet (KlonoPIN) 90 Tab*0 Sig: TAKE ONE TABLET BY MOUTH THREE TIMES DAILY Morphine Sulfate ER 15 MG Oral Tablet Ext*30 Tab*0 Sig: Take 1 Tablet by mouth at bedtime as needed for Pain, Severe. oxyCODONE HCl 5 MG Oral Tablet (Oxy IR) 60 Tab*0 Sig: Take 1 Tablet by mouth every 8 hours as needed (pain). Last Visit: 11/26/2022 (in office), 03/06/2022 (telemedicine) Next Visit: 04/28/2023 Date medication was last filled: 11/29 11/29 11/29 Date medication is due for refill: 12/28 12/28 12/18 Pharmacy: [id number] Is this request for a controlled substance? Yes and Urine Drug Screen Not completed Toxicology results: No results found. However, due to the size of the patient record, not all encounters were searched.Please check Results Review for a complete set of results. Please approve if appropriate. Thanks, Ramon Bragg, PharmD Clinical Pharmacist [facility](formerly telepharmacy) [phone] 12/26/2022, 12:02 PM * Telephone Encounter - [facility] - 12/25/2022 8:45 AM EDT Did you pend patient's preferred pharmacy and medication before forwarding?yes Pharmacy: [id number] Pending Prescriptions: Disp Refills clonazePAM 0.5 MG Oral Tablet (KlonoPIN) 90 Tab*0 Sig: TAKE ONE TABLET BY MOUTH THREE TIMES DAILY Morphine Sulfate ER 15 MG Oral Tablet Ext*30 Tab*0 Sig: Take 1 Tablet by mouth at bedtime as needed for Pain, Severe. oxyCODONE HCl 5 MG Oral Tablet (Oxy IR) 60 Tab*0 Sig: Take 1 Tablet by mouth every 8 hours as needed (pain). Last Visit: 11/26/2022 (in office), 03/06/2022 (telemedicine) Next Visit: 04/28/2023 If no future appointments scheduled, and last appointment is greater than a year ago, please schedule patient for a follow-up appointment Last date the medication was ordered: 11/29/22, Is this request for a controlled substance?Yes, What was the last refill date 11.29.22 w/ quantity 30, 60, 90 and dosage 0.5 MG, 15 MG, 5 MG and Urine Drug Screen Not completed [...] Encounters Date Type Specialty Care Team Description 12/27/2022 Cardiac Studies Cardiac Studies 12/30/2022 Telemedicine Pharmacy Opp, [address] [address] 01/13/2023 Office Visit Cardiology Sobia Brewster PA-C [address] [place] [address] 01/14/2023 Office Visit Gynecology Urology Nir Landa MD [address] [place] [address] Nurse Yury Fox [address] [place] [address] 01/20/2023 Telemedicine [facility] Lashay Blevins PA-C [address] [place] [address] Beverly Lozoya, [address] [place] [id number] 01/22/2023 Office Visit Infectious Disease Vidya Fabian MD [address] [place] [address] 04/09/2023 Office Visit Urology Alfredo Panda MD [address] [place], [place] [phone] 04/28/2023 Office Visit Family Medicine Carmen Sifuentes MD [address] [place] [address] 05/09/2023 Office Visit Gastroenterology Wendy Frias DO [address] [place] [address] Scheduled Procedures Name Priority Associated Diagnoses Date/Ti [...] - Moderna series) 08/05/2021 06/10/2021, 08/29/2020, 08/01/2020 HbA1c 04/24/2023 10/23/2022, 04/07, 11/01/2021, Additional history exists GFR 06/06/2023 12/05/2022, 0607/2022, 11/18/2022, Additional history exists Albumin/Creatinine Ratio 10/24/2023 023, 07/17/2022, 10/05/2020, Additional history exists CKD PHOS USE SMARTSET 23132 10/24/202310/05, 02/18/2022, 02/17/2022, Additional history exists TSH 10/24/2023 10/23/2022, 02/05, 09/24/2021, Additional history exists CKD HGB USE SMARTSET 69211 11/22/202311/21, 11/21/2022, 04/25/2022, Additional history exists Colonoscopy 05/20/2024 05/20/2014 Colorectal Cancer Screening 05/20/2024 DTaP,Tdap,and Td Vaccines (2 - Td or Tdap) 06/27/2025 06/27/2015 Pneumococcal Vaccine: 65+ Years Completed 02/14/2017, 02/06/2016, 06/26/2011, Additional history exists Influenza Vaccine (FLU shot) Completed 02/2022, 03/14/2022, 04/10/2021, Additional history exists GARDASIL-HPV IMMUNIZATION SERIES Aged Out No longer eligible based on patient's age to complete this topic MENINGOCOCCAL (MENACTRA/MENVEO) Aged Out No longer eligible based on patient's age to complete this topic documented as of this encounter Medical Devices Implanted Type Area Registered Medical Assistant Device Identifier Shelf Expiration Date Model / Serial / Lot Jenna Denny [id number] - [id number] Implanted:Qty: 1 on 02/15/2011 at [place] [facility] [place] N/A: Chest DO NOT USE 07/21/2015 [id number] / / [id number] documented as of this encounter Visit Diagnoses Diagnosis Bipolar I disorder, most recent episode depressed, moderate (HCC) Bipolar I disorder, most recent episode (or current) depressed, moderate Lumbar spondylosis Lumbosacral spondylosis without myelopathy documented in this encounter Advance Directives Documents on File Type Date Recorded Patient Press Smith Helper 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 Question Answer Comments Discussion of Advance Directives occurred with: Patient Does the patient have a Living Will? No Does the patient have Health Care Power of Propulsion Systems Engineer? No Code Status History Code Status [...] the patient have Health Care Power of Propulsion Systems Engineer? No Full Code 02/01/2010 4:02 PM 02/02/2010 4:09 PM This order reflects the patients wishes and were consensually agreed upon. Question Answer Comments Discussion of Advance Directives occurred with: Not Discussed Does the patient have a Living Will? No Does the patient have Health Care Power of Propulsion Systems Engineer? No Healthcare Agents on File Name Relationship Healthcare Agent Relationshi p Communication Carolyn Ballard Adult Child Health Care Agent Care Teams Night Patrol Inspector Relationship Specialty Start Date End Date Carmen Sifuentes MD [address], [place] [phone] PCP - General Family Medicine 07/16/17 documented as of this encounter
--- OUTSIDE RECORDS SUMMARY | 2023-05-17 12:18 | External Medical Summary | Summary of Care ---
Author Name Unknown Organization [facility] Address [address] [facility] [place] [address] Phone [phone] Care Team Providers Care Service Desk Specialist Name Role Phone Carmen Sifuentes MD Primary Care Provider [phone]- [phone] Reason for Visit * Reason Comments eRx-Medication Refill Encounter Details Date Type Department Care Team Description [facility] [facility] [address] [place] [address] Sobia Brewster PA-C [address] [place] [address] Atherosclerotic heart disease of [place] coronary artery with other forms of angina pectoris (HCC); Hypertensive heart disease with chronic diastolic congestive heart failure (HCC) Allergies Active Allergy Reactions Severity Noted Date Comments Propoxyphene Hcl Rash Low 10/29/2010 Fentanyl Diarrhea Low 04/26/2010 anxiety Methocarbamol Medium 10/05/2020 Other reaction(s): Delirium Methocarbamol Low 04/15/2007 Zolpidem Low 10/05/2020 Other reaction(s): Confusion documented as of this encounter (statuses as of 12/24/2022) Medications Medication Sig Dispensed Refills Start Date End Date Status ARIPiprazole (ABILIFY) 2 MG Tablet Take 1 Tablet by mouth in the morning. 0 07/11/19 16 Active venlafaxine XR (EFFEXOR XR) 150 MG [id number]:De pression Take 1 Cap by mouth daily. With food. 30 Cap 5 09/02/19 17 Active Additional Information Patient taking differently: 225 mgOral Daily(AM), With food.,Indications: Takes 225 mg total every morning with food (150 mg tab + 75 mg tab), Reported on 06/24/2022 Blood Glucose Monitoring Suppl ([employer] GLUCOMETER) w/Device KITIndications:Unc ontrolled type 2 diabetes mellitus without complication, without long-term current use of insulin Use as directed. Use as directed once daily 1 Kit 0 11/19/19 18 Active Blood Glucose Monitoring Suppl (Robin) w/Device KIT Use as directed. Use as [...] neuropathy, with long-term current use of insulin ([facility]) Inject 30 units under the skin twice daily 45 mL 3 04/16/20 22 Active Insulin Glargine Solostar 100 UNIT/ML Subcutaneous Solution Pen-injector (Basaglar KwikPen)Indication s:Type 2 diabetes mellitus with diabetic neuropathy, with long-term current use of insulin ([facility]) Inject 30 units under the [...] Respimat 2.5 MCG/ACT Inhalation Aerosol Solution (Tiotropium [place] Monohydrate) Inhale by mouth 2 Puffs in the morning. 4 g 3 04/25/20 22 Active Estradiol 0.1 MG/GM Vaginal Cream Administer into the vagina 1 g in the morning. 42.5 g 12 05/07/20 22 Active OneTouch Verio In Vitro Strip (Glucose Blood)Indications: Type 2 diabetes mellitus with diabetic neuropathy, with long-term current use of insulin ([facility]) USE TO CHECK BLOOD SUGAR THREE TIMES A DAY 300 Strip 1 05/11/20 22 Active Diclofenac Sodium 1 % External Gel (Voltaren) Apply topically to affected area 2 times a day. 150 g 3 06/05/20 22 Active Vitamin D (Ergocalciferol) 1.25 MG (92234 UT) Oral Capsule (Drisdol)Indicatio ns:Vitamin D deficiency [...] 60 Capsule 5 08/22/19 23 Active Nystatin 901488 UNIT/ML Mouth/Throat Suspension Swish and swallow 5 mL in the morning and 5 mL at noon and 5 mL in the evening and 5 mL before bedtime. For thrush.. 240 mL 1 09/06/19 23 Active Tamsulosin HCl 0.4 MG Oral Capsule (Flomax) Take 1 Capsule by mouth in the morning. Every morning.. 90 Capsule 3 09/19/19 23 Active Methenamine Hippurate 1 GM Oral Tablet (Hiprex)Indication s:Recurrent UTI Take 1 Tablet by mouth in the morning and 1 Tablet before bedtime. 60 Tablet 3 09/19/19 23 Active lamoTRIgine 25 MG [...] DAILY 60 Tablet 0 11/20/19 23 Active Morphine Sulfate ER 15 MG Oral Tablet Extended Release (Ms Contin)Indications :Lumbar spondylosis Take 1 Tablet by mouth at bedtime as needed for Pain, Severe. 30 Tablet 0 11/30/19 23 Active oxyCODONE HCl 5 MG Oral Tablet (Oxy IR)Indications:Lum bar spondylosis Take 1 Tablet by mouth every 8 hours as needed (pain). 60 Tablet 0 11/30/19 23 Active clonazePAM 0.5 MG Oral Tablet (KlonoPIN)Indicati ons:Bipolar I disorder, most recent episode depressed, moderate (HCC) TAKE ONE TABLET BY MOUTH THREE TIMES DAILY 90 Tablet 0 11/30/19 23 Active Pantoprazole Sodium 40 MG Oral Tablet Delayed Release (Protonix)Indicati ons:Gastroesophage al reflux disease without esophagitis TAKE ONE TABLET BY MOUTH IN THE MORNING AND ONE TABLET IN THE EVENING 60 Tablet 5 12/08/19 23 Active Potassium Chloride Mag ER 20 MEQ Oral Tablet Extended Release TAKE ONE TABLET BY MOUTH IN THE MORNING. to use when taking additional torsemide 30 Tablet 0 12/04/19 23 Active Dicyclomine HCl 10 MG Oral [...] days.. 20 Capsule 1 12/21/19 23 Active Torsemide 20 MG Oral Tablet (Demadex)Indicatio ns:Atherosclerotic heart disease of [place] coronary artery with other forms of angina pectoris (HCC),Hypertensive heart disease with chronic diastolic congestive heart failure (HCC) TAKE 1 TABLET BY MOUTH EVERY MORNING. MAY TAKE 1 ADDITIONAL TABLET NEEDED FOR SWELLING. 90 Tablet 1 12/25/19 23 Active Torsemide 20 MG Oral Tablet (Demadex)Indicatio ns:Atherosclerotic heart disease of [place] coronary artery with other forms of angina pectoris (HCC),Hypertensive heart disease with chronic diastolic congestive heart failure (HCC) TAKE 1 TABLET BY MOUTH EVERY MORNING. MAY TAKE 1 ADDITIONAL TABLET NEEDED FOR SWELLING. 90 Tablet 0 05/13/20 22 023 Discontinued Hospital, Clinic, or Other Facility Administered Medication Ordered Dose Route Frequency Start Date End Date Status Albuterol Sulfate (Proventil) (2.5 MG/3ML) 0.083% inhalation solution 2.5 mgIndications:SOB (shortness of breath) 2.5 mg NEBULIZER PRN 01/18/2022 01/18/2023 Act cameron Albuterol Sulfate (Proventil) (5 MG/ML) 0.5% *conc* inhalation solution 2.5 mgIndications:SOB (shortness of breath) 2.5 mg NEBULIZER PRN 01/18/2022 01/18/2023 Act cameorn documented as of this encounter (statuses as of 12/24/2022) Active Problems Problem Noted Date Hypertensive heart and kidne y disease with chronic diastolic congestive heart failure and stage 3a chronic kidney disease 12/28/2021 Last Assessment & Plan: Euvolemic, BP stable EF 55% 09/25 GFR 69 02/25 -Continue Torsemide 20 mg BID, Spironolactone 25 mg BID, Tropol XL 50 mg daily 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 No angina -continue toprol, ASA and statin Seasonal allergies 11/15/2021 Recurrent UTI 10/07/2021 Last Assessment & Plan: Followed by urology Pt is supposed to be on methenamine--will need to clarify with dgt that she is giving this. 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/2014 retirement current use of anticoagulant therapy 1 08/18/2005 [...] as of this encounter (statuses as of 12/24/2022) Immunizations Name Administration Dates Next Due COVID-19 [...] encounter Miscellaneous Notes * Telephone Encounter - Yarelis Ospina LPN - 12/24/2022 4:44 PM EDTSigned Prescriptions: Disp Refills Torsemide 20 MG Oral Tablet (Demadex) 90 Tab*1 Sig: TAKE 1 TABLET BY MOUTH EVERY MORNING. MAY TAKE 1 ADDITIONAL TABLET NEEDED FOR SWELLING.Authorizing Provider:CARMEN SIFUENTES * Telephone Encounter - Carmen Sifuentes MD - 12/24/2022 4:14 PM EDTSigned Prescriptions: Disp Refills Torsemide 20 MG Oral Tablet (Demadex) 90 Tab*1 Sig: TAKE 1 TABLET BY MOUTH EVERY MORNING. MAY TAKE 1 ADDITIONAL TABLET NEEDED FOR SWELLING.Authorizing Provider: CARMEN SIFUENTES R * Telephone Encounter - Erinn Swan [facility] - 12/24/2022 12:57 PM EDTPending Prescriptions: Disp Refills Torsemide 20 MG Oral Tablet (Demadex) 90 Tab*1 Sig: TAKE 1 TABLET BY MOUTH EVERY MORNING. MAY TAKE 1 ADDITIONAL TABLET NEEDED FOR SWELLING. * Telephone Encounter - Erinn Swan [facility] - 12/24/2022 12:57 PM EDT Last approved by [facility]. Please advise/approve if appropriate. Thanks, Erinn Swan Clinical Pharmacist [facility] ([facility]) (Formerly Telepharmacy) [phone] 12/24/2022, 12:57 PM * Telephone Encounter - Gracie Daniels [facility] - 12/23/2022 11:42 AM EDT Did you pend patient's preferred pharmacy and medication before forwarding?yes [id number] [address] [facility] Pending Prescriptions: Disp Refills Torsemide 20 MG Oral Tablet (Demadex) [Ph*90 Tab*0 Sig: TAKE 1 TABLET BY MOUTH EVERY MORNING. MAY TAKE 1 ADDITIONAL TABLET NEEDED FOR SWELLING. Last Visit: Visit date not found (in office), 03/12/2022 (telemedicine) Next Visit: Visit date not found If no future appointments scheduled, and last appointment is greater than a year ago, please schedule patient for a follow-up appointment Last date the medication was ordered: 05/13/2022 Is this request for a controlled substance?No [...] 12/27/2022 Cardiac Studies Cardiac Studies 12/30/[address] [address] 01/13/2023 Office Visit Cardiology Sobia Brewster PA-C [address] [place] [address] 01/14/2023 Office Visit Gynecology Urology Nir Landa MD [address] [place] [address] Nurse Yury Fox [address] [place] [address] 01/20/2023 [facility] Lashay Blevins PA-C [address] [place] [address] Beverly Lozoya, Community Health [employer] Drill Operator [address] [place] [address] [place] [phone] 01/22/2023 Office Visit Infectious Disease Vidya Fabian MD [address] [place], [place] [phone] 04/09/2023 Office Visit Urology Alfredo Panda MD [address] [place] [address] 04/28/2023 Office Visit Family Medicine Carmen Sifuentes MD [address] [place] [address] 05/09/2023 Office Visit Gastroenterology Wendy Frias, DO [address] [place] [address] Scheduled Procedures Name Priority Associated Diagnoses Date/Ti [...] Additional history exists CKD PHOS USE SMARTSET 04236 10/24/202310/05, 02/18/2022, 02/17/2022, Additional history exists TSH 10/24/2023 10/23/2022, 02/05, 09/24/2021, Additional history exists CKD HGB USE SMARTSET 20853 11/22/202311/21, 11/21/2022, 04/25/2022, Additional history exists Colonoscopy [...] this encounter Medical Devices Implanted Type Area Deputy Chief Sheriff Device Identifier Shelf Expiration Date Model / Serial / Lot Sut Bob 6 [id number] - [id number] Implanted:Qty: 1 on 02/15/2011 at OR [facility] N/A: Chest DO NOT USE 07/21/2015 [id number] / / [id number] documented as of this encounter Visit Diagnoses Diagnosis 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 Question Answer Comments Discussion of Advance Directives occurred with: Patient Does the patient have a Living Will? No Does the patient have Health Care Power of Income Tax Adjuster? No Code Status History Code Status Date [...] the patient have Health Care Power of Income Tax Adjuster? No Full Code 02/01/2010 4:02 PM 02/02/2010 4:09 PM This order reflects the patients wishes and were consensually agreed upon. Question Answer Comments Discussion of Advance Directives occurred with: Not Discussed Does the patient have a Living Will? No Does the patient have Health Care Power of Income Tax Adjuster? No Healthcare Agents on File Name Relationship Healthcare Agent [facility] Communication Carolyn Ballard Adult Child Health Care Agent Care Teams Service Desk Specialist Relationship Specialty Start Date End Date Carmen Sifuentes MD [address] [place] [address] PCP - General Family Medicine 07/16/17 documented as of this encounter
--- OUTSIDE RECORDS SUMMARY | 2023-05-17 12:18 | External Medical Summary | Summary of Care ---
Author Name Unknown Organization [facility] Address [address] [place] [address] Phone [phone] Care Team Providers Care Java Architect Name Role Phone Carmen Sifuentes MD Primary Care Provider [phone]- [phone] Reason for Visit * Reason Comments eRx-Medication Refill Encounter Details Date Type Department Care Team Description 12/22/2022 Refill [facility] [address] [place] [address] Carmen Sifuentes MD [address] [place] [address] Allergies Active Allergy Reactions Severity Noted Date Comments Propoxyphene Hcl Rash Low 10/29/2010 Fentanyl Diarrhea Low 04/26/2010 anxiety Methocarbamol Medium 10/05/2020 Other reaction(s): Delirium Methocarbamol Low 04/15/2007 Zolpidem Low 10/05/2020 Other reaction(s): Confusion documented as of this encounter (statuses as of 12/23/2022) Medications Medication Sig Dispensed Refills Start Date End Date Status ARIPiprazole (ABILIFY) 2 MG Tablet Take 1 Tablet by mouth in the morning. 0 07/11/19 16 Active venlafaxine XR (EFFEXOR XR) 150 MG [id number]:De pression Take 1 Cap by mouth daily. With food. 30 Cap 5 09/02/19 17 Active Additional Information Patient taking differently: 225 mgOral Daily(AM), With food.,Indications: Takes 225 mg total every morning with food (150 mg tab + 75 mg tab), Reported on 06/24/2022 Blood Glucose Monitoring Suppl ([employer] GLUCOMETER) w/Device KITIndications:Unc ontrolled type 2 diabetes mellitus without complication, without long-term current use of insulin Use as directed. Use as directed once daily 1 Kit 0 11/19/19 18 Active Blood Glucose Monitoring Suppl (Piazza) w/Device KIT Use as directed. Use as [...] neuropathy, with long-term current use of insulin ([facility]) Inject 30 units under the skin twice daily 45 mL 3 04/16/20 22 Active Insulin Glargine Solostar 100 UNIT/ML Subcutaneous Solution Pen-injector (Basaglar KwikPen)Indication s:Type 2 diabetes mellitus with diabetic neuropathy, with long-term current use of insulin ([facility]) Inject 30 units under the skin twice [...] Respimat 2.5 MCG/ACT Inhalation Aerosol Solution (Tiotropium [place] Monohydrate) Inhale by mouth 2 Puffs in the morning. 4 g 3 04/25/20 22 Active Estradiol 0.1 MG/GM Vaginal Cream Administer into the vagina 1 g in the morning. 42.5 g 12 05/07/20 22 Active OneTouch Verio In Vitro Strip (Glucose Blood)Indications: Type 2 diabetes mellitus with diabetic neuropathy, with long-term current use of insulin ([facility]) USE TO CHECK BLOOD SUGAR THREE TIMES A DAY 300 Strip 1 05/11/20 22 Active Torsemide 20 MG Oral Tablet (Demadex)Indicatio ns:Atherosclerotic heart disease of [place] coronary artery with other forms of angina pectoris (HCC),Hypertensive heart disease with chronic diastolic congestive heart failure (HCC) TAKE 1 TABLET BY MOUTH EVERY MORNING. MAY TAKE 1 ADDITIONAL TABLET NEEDED FOR SWELLING. 90 Tablet 0 05/13/20 22 Active Diclofenac Sodium 1 % External Gel (Voltaren) Apply topically to affected area 2 times a day. 150 g 3 06/05/20 22 Active Vitamin D (Ergocalciferol) 1.25 MG (79859 UT) Oral Capsule (Drisdol)Indicatio ns:Vitamin D deficiency [...] and 3 mL before bedtime. 360 mL 08/05/19 23 Active Trulicity 4.5 MG/0.5ML Subcutaneous Solution Pen-injector (Dulaglutide) INJECT 4.5 mg subcutaneously once per week 6 mL 3 08/20/19 23 Active Gabapentin 300 MG Oral Capsule (Neurontin)Indicat ions:Lumbar spondylosis TAKE 1 CAPSULE BY MOUTH TWICE DAILY 60 Capsule 5 08/22/19 23 Active Nystatin 083065 UNIT/ML Mouth/Throat Suspension Swish and swallow 5 [...] Capsule 1 12/21/19 23 Active UltiCare Pen [place] 31G X 5 MM (Insulin Pen Needle) use TWICE DAILY 200 Each 3 12/24/19 23 Active UltiCare Pen [place] 31G X 5 MM (Insulin Pen Needle) USE ONE NEEDLE TWICE DAILY 200 Each 3 04/03/20 22 023 Discontinued Hospital, Clinic, or Other [...] as of this encounter (statuses as of 12/23/2022) Active Problems Problem Noted Date Hypertensive heart [...] giving this. 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 Anxiety 08/05/2017 Edyluge-Ljynw-Wovql disease 06/27/2015 Last Assessment & Plan: Frequent [...] as of this encounter (statuses as of 12/23/2022) Resolved Problems Problem Noted Date Resolved Date [...] 10/31/201008/08 Acute coronary syndrome 10/30/2010 01/22/20 14 [facility] Research Other*[id number] 02/02/2010 04/18/2014 Overview: [place] [facility], Dr Joel CASAS Obesity, morbid (more [...] as of this encounter (statuses as of 12/23/2022) Immunizations Name Administration Dates Next Due COVID-19 [...] encounter Miscellaneous Notes * Telephone Encounter - Marnie Hernadez RPh - 12/23/2022 5:55 PM EDTSigned Prescriptions: Disp Refills UltiCare Pen [place] 31G X 5 MM (Insulin P*200 Ea*3 Sig: use TWICE DAILYAuthorizing Provider: CARMEN SIFUENTES User: MARNIE HERNADEZ documented in this encounter Plan of Treatment Upcoming Encounters Date Type Specialty Care Team Description 12/27/2022 Cardiac Studies Cardiac Studies 12/30/2022 Telemedicine Pharmacy [address] [address] 01/13/2023 Office Visit Cardiology Sobia Brewster PA-C [address] [place] [address] 01/14/2023 Office Visit Gynecology Urology Nir Landa MD [address] [place] [address] Nurse Yury Fox [address] [place] [address] 01/20/2023 Telemedicine [facility] Lashay Blevins PA-C [address] [place] [address] Beverly Lozoya, Community Health Estate Conservator [address] [place] [address] [place] [address] 01/22/2023 Office Visit Infectious Disease Vidya Fabian MD [address] [place] [address] 04/09/2023 Office Visit Urology Alfredo Panda MD [address] [place] [address] 04/28/2023 Office Visit Family Medicine Carmen Sifuentes MD [address] [place], [place] [phone] 05/09/2023 Office Visit Gastroenterology Wendy Frias, DO [address] [place] [address] Scheduled Procedures Name Priority Associated Diagnoses Date/Ti [...] Additional history exists CKD PHOS USE SMARTSET 29087 10/24/202310/05, 02/18/2022, 02/17/2022, Additional history exists TSH 10/24/2023 10/23/2022, 02/05, 09/24/2021, Additional history exists CKD HGB USE SMARTSET 19086 11/22/202311/21, 11/21/2022, 04/25/2022, Additional history exists Colonoscopy [...] this encounter Medical Devices Implanted Type Area Tab Machine Operator Device Identifier Shelf Expiration Date Model / Serial / Lot Sut Bob 6 [id number] - [id number] Implanted:Qty: 1 on 02/15/2011 at OR [facility] N/A: Chest DO NOT USE 07/21/2015 [id number] / / [id number] documented as of this encounter Advance Directives Documents on File Type Date Recorded 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 Question Answer Comments Discussion of Advance Directives occurred with: Patient Does the patient have a Living Will? No Does the patient have Health Care Power of Roentgenologist? No Code Status History Code Status Date [...] the patient have Health Care Power of Roentgenologist? No Full Code 02/01/2010 4:02 PM 02/02/2010 4:09 PM This order reflects the patients wishes and were consensually agreed upon. Question Answer Comments Discussion of Advance Directives occurred with: Not Discussed Does the patient have a Living Will? No Does the patient have Health Care Power of Roentgenologist? No Healthcare Agents on File Name Relationship Healthcare Agent [facility] p Communication Carolyn Goldmangerard Adult Child Health Care Agent Care Teams Java Architect Relationship Specialty Start Date End Date Carmen Sifuentes MD [address] [place] [address] PCP - General Family Medicine 07/16/17 documented as of this encounter
--- OUTSIDE RECORDS SUMMARY | 2023-05-17 12:18 | External Medical Summary | Summary of Care ---
Author Name Unknown Organization [facility] Address [address] [place] [address] Phone [phone] Care Team Providers Care Radar Air Traffic Controller Name Role Phone Brian Domínguez MD Primary Care Provider +1- [phone] Reason for Visit * Reason Onset Date Comments Advice 12/26/2022 Encounter Details Date Type Department Care Team Description 12/26/2022 Telephone [facility] [place] [address] [place] [address] Lashay Blevins PA-C [address] [place] [address] Advice Allergies Active Allergy Reactions [...] Active venlafaxine XR (EFFEXOR XR) 150 MG [id number]:Dep ression Take 1 Cap by mouth daily. With food. 30 Cap 5 09/02/2016 Active Additional Information Patient taking differently: 225 mgOral Daily(AM), With food.,Indications: Takes 225 mg total every morning with food (150 mg tab + 75 mg tab), Reported on 06/24/2022 Blood Glucose Monitoring Suppl ([employer] GLUCOMETER) w/Device KITIndications:Unco ntrolled type 2 diabetes mellitus without complication, without long-term current use of insulin Use as directed. Use as directed once daily 1 Kit 0 11/18/2017 Active Blood Glucose Monitoring Suppl (ContentRealtimeIO) w/Device KIT Use as directed. Use as directed. 1 Kit 0 10/31/2018 Active Spacer/Aero-Holding Chambers WISAM Use with inhaler. Wheezing/bronchitis . 1 Device 0 04/08/2019 Active Reflexion Network Solutions DelInfoRemate Lancets 33G MISC USE UP TO FOUR TIMES A DAY Dx:E11.4 100 Each 5 09/30/2019 Active Lancet Devices (AEA TechnologyUCH DELICA LANCING DEV) MISC Use four times [...] Respimat 2.5 MCG/ACT Inhalation Aerosol Solution (Tiotropium [place] Monohydrate) Inhale by mouth 2 Puffs in [...] 06/05/2022 Active Vitamin D (Ergocalciferol) 1.25 MG (58313 UT) Oral Capsule (Drisdol)Indication s:Vitamin D deficiency [...] DAILY 60 Capsule 5 08/22/2022 Active Nystatin 082407 UNIT/ML Mouth/Throat Suspension Swish and swallow 5 [...] TWICE DAILY 60 Tablet 0 11/19/2022 Active Morphine Sulfate ER 15 MG Oral Tablet Extended Release (Ms Contin)Indications: Lumbar spondylosis Take 1 Tablet by mouth at bedtime as needed for Pain, Severe. 30 Tablet 0 11/29/2022 Active oxyCODONE HCl 5 MG Oral Tablet (Oxy IR)Indications:Lumb ar spondylosis Take 1 Tablet by mouth every 8 hours as needed (pain). 60 Tablet 0 11/29/2022 Active clonazePAM 0.5 MG Oral Tablet (KlonoPIN)Indicatio ns:Bipolar I disorder, most recent episode depressed, moderate (HCC) TAKE ONE TABLET BY MOUTH THREE TIMES DAILY 90 Tablet 0 11/29/2022 Active Pantoprazole Sodium 40 MG Oral Tablet [...] 20 Capsule 1 12/20/2022 Active UltiCare Pen [place] 31G X 5 MM (Insulin Pen Needle) use TWICE DAILY 200 Each 3 12/23/2022 Active Torsemide 20 MG Oral Tablet (Demadex)Indication s:Atherosclerotic heart disease of [place] coronary artery with other forms of angina [...] & Plan: Euvolemic, BP stable EF 55% 3/22 GFR 69 02/25 -Continue Torsemide 20 mg BID, Spironolactone 25 mg BID, Tropol XL 50 mg daily Atherosclerotic heart diseas e of [place] coronary artery with other forms of angina pectoris 11/15/2021 Last Assessment & Plan: Stable. No angina -continue toprol, ASA and statin Seasonal allergies 11/15/2021 Recurrent UTI 10/07/2021 Last Assessment & Plan: Followed by urology Pt is supposed to be on methenamine--will need to clarify with dgt that she is giving this. 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 No redness or concern for infection. Venous doppler was negative. NAVI not completed yet. [facility] and they will complete NAVI tomorrow or Friday. Micah states her mom tripped and fell and is being evaluated in ED right now at [facility] for injuries. Advised to reach out with any acute concerns. documented in this encounter Plan of Treatment Upcoming Encounters Date Type Specialty Care Team Description 12/27/2022 Cardiac Studies Cardiac Studies 12/30/2022 Telemedicine Pharmacy [facility] [address] [place] [address] 01/13/2023 Office Visit Cardiology Sobia Brewster PA-C [address] [place] [address] 01/14/2023 Office Visit Gynecology Urology Nir Landa MD [address] [place] [address] Nurse Yury Fox [address] [place] [address] 01/20/2023 [facility]medicine [facility]ins [facility]C [address] [facility] [address] Beverly Lozoya, Community Health Primary Care Physician [address] [place] [address] [place] [address] 01/22/2023 Office Visit Infectious Disease [facility]ian [facility] [address] [facility] [address] 04/09/2023 Office Visit Urology Alfredo Panda MD [address] [place] [id number] 04/28/2023 Office Visit Family Medicine Brian Domínguez MD [address] [place] [address] 05/09/2023 Office Visit Gastroenterology Wendy Frias, DO [address] [place] [address] Scheduled Procedures Name Priority Associated Diagnoses Date/Ti [...] Additional history exists CKD PHOS USE SMARTSET 14985 10/24/2023 04/03/2023, 02/18/2022, 02/17/2022, Additional history exists TSH 10/24/2023 10/23/2022, 02/05, 09/24/2021, Additional history exists CKD HGB USE SMARTSET 24241 11/22/202311/21, 11/21/2022, 04/25/2022, Additional history exists Colonoscopy [...] this encounter Medical Devices Implanted Type Area Booth Cleaner Device Identifier Shelf Expiration Date Model / Serial / Lot Sut Steel 6 [id number] - [id number] [place]ed:[place] on [place] [facility] [place]: Chest DO NOT USE 07/21/2015 [id number] / / [id number] documented as of this encounter Advance Directives Documents on File Type Date Recorded 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 Question Answer Comments Discussion of Advance Directives occurred with: Patient Does the patient have a Living Will? No Does the patient have Health Care Power of Lehr Operator? No Code Status History Code Status [...] the patient have Health Care Power of Lehr Operator? No Full Code 02/01/2010 4:02 PM 02/02/2010 4:09 PM This order reflects the patients wishes and were consensually agreed upon. Question Answer Comments Discussion of Advance Directives occurred with: Not Discussed Does the patient have a Living Will? No Does the patient have Health Care Power of Lehr Operator? No Healthcare Agents on File Name Relationship Healthcare Agent [facility] p Communication Carolyn Elio Adult Child Health Care Agent Care Teams Radar Air Traffic Controller Relationship Specialty Start Date End Date Brian Domínguez MD [address] [place] [address] PCP - General Family Medicine 07/16/17 documented as of this encounter
--- OUTSIDE RECORDS SUMMARY | 2023-05-17 12:18 | External Medical Summary | Summary of Care ---
Author Name Unknown Organization [facility] Address [address] [place] [address] Phone [phone] Care Team Providers Care Hoop Maker Helper Machine Name Role Phone Brian Domínguez MD Primary Care Provider [phone]- [phone] Reason for Visit * Reason Onset Date Comments case management 12/23/2022 Encounter Details Date Type Department Care Team Description 12/23/2022 Scrap Sawyer Telephone Ancillary 1st Floor, [place] [address] [place] [address] Bisi Triana, RN [address] [place] [address] case management Allergies Active Allergy Reactions Severity [...] Active venlafaxine XR (EFFEXOR XR) 150 MG PA40Rmsgbtgspzc:Dep ression Take 1 Cap by mouth daily. With food. 30 Cap 5 09/02/2016 Active Additional Information Patient taking differently: 225 mgOral Daily(AM), With food.,Indications: Takes 225 mg total every morning with food (150 mg tab + 75 mg tab), Reported on 06/24/2022 Blood Glucose Monitoring Suppl ([employer] GLUCOMETER) w/Device KITIndications:Unco ntrolled type 2 diabetes mellitus without complication, without long-term current use of insulin Use as directed. Use as directed once daily 1 Kit 0 11/18/2017 Active Blood Glucose Monitoring Suppl (NewmerixIO) w/Device KIT Use as directed. Use as directed. 1 Kit 0 10/31/2018 Active Spacer/Aero-Holding Chambers WISAM Use with inhaler. Wheezing/bronchitis . 1 Device 0 04/08/2019 Active [employer]bin DelThingWorx Lancets 33G MISC USE UP TO FOUR TIMES A DAY Dx:E11.4 100 Each 5 09/30/2019 Active Lancet Devices (AlmondNetUCH DELICA LANCING DEV) MISC Use four times [...] every morning. 30 Tablet 5 03/12/2022 Active UltiCare Pen [place] 31G X 5 MM (Insulin Pen Needle) USE ONE NEEDLE TWICE DAILY 200 Each 3 04/03/2022 Active Insulin Glargine Solostar 100 UNIT/ML Subcutaneous Solution Pen-injector (BeeBillionaglar KwikPen)Indications :Type 2 diabetes mellitus with diabetic neuropathy, with long-term current use of insulin ([facility]) Inject 30 units under the skin twice daily 45 mL 3 04/16/2022 Active Insulin Glargine Solostar 100 UNIT/ML Subcutaneous Solution Pen-injector (BeeBillionaglar KwikPen)Indications :Type 2 diabetes mellitus with diabetic neuropathy, with long-term current use of insulin ([facility]) Inject 30 units under the [...] Respimat 2.5 MCG/ACT Inhalation Aerosol Solution (Tiotropium [place] Monohydrate) Inhale by mouth 2 Puffs in the morning. 4 g 3 04/25/2022 Active Estradiol 0.1 MG/GM Vaginal Cream Administer into the vagina 1 g in the morning. 42.5 g 12 05/07/2022 Active OneTouch Verio In Vitro Strip (Glucose Blood)Indications:T ype 2 diabetes mellitus with diabetic neuropathy, with long-term current use of insulin ([facility]) USE TO CHECK BLOOD SUGAR THREE TIMES A DAY 300 Strip 1 05/11/2022 Active Torsemide 20 MG Oral Tablet (Demadex)Indication s:Atherosclerotic heart disease of [place] coronary artery with other forms of angina pectoris (HCC),Hypertensive heart disease with chronic diastolic congestive heart failure (HCC) TAKE 1 TABLET BY MOUTH EVERY MORNING. MAY TAKE 1 ADDITIONAL TABLET NEEDED FOR SWELLING. 90 Tablet 0 05/13/2022 Active Diclofenac Sodium 1 % External Gel (Voltaren) Apply topically to affected area 2 times a day. 150 g 3 06/05/2022 Active Vitamin D (Ergocalciferol) 1.25 MG (44596 UT) Oral Capsule (Drisdol)Indication s:Vitamin D deficiency [...] DAILY 60 Capsule 5 08/22/2022 Active Nystatin 725779 UNIT/ML Mouth/Throat Suspension Swish and swallow 5 [...] THE EVENING 60 Tablet 5 12/07/2022 Active Potassium Chloride Mag ER 20 MEQ Oral Tablet Extended Release TAKE ONE TABLET BY MOUTH IN THE MORNING. to use when taking additional torsemide 30 Tablet 0 12/03/2022 Active Dicyclomine HCl 10 MG Oral Capsule [...] 10 days.. 20 Capsule 1 12/20/2022 Active Hospital, Clinic, or Other Facility Administered [...] daily Atherosclerotic heart diseas e of [place] coronary artery with other forms of angina pectoris 11/15/2021 Last Assessment & Plan: Stable. No angina -continue toprol, ASA and statin Seasonal allergies 11/15/2021 Recurrent UTI 10/07/2021 Last Assessment & Plan: Followed by urology Pt is supposed to be on methenamine--will need to clarify with dgt that she is giving this. 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 Follow-up Routine 2. Attempted Phone Call First Attempt 3. Call Outcome Left Voicemail/Message 4. Plan To attempt another outreach documented in this encounter Plan of Treatment Upcoming Encounters Date Type Specialty Care Team Description 12/27/2022 Cardiac Studies Cardiac Studies 12/30/2022 Telemedicine Pharmacy [facility] [address], [place] [id number] 01/13/2023 Office Visit Cardiology Sobia Brewster PA-C [address] [place] [address] 01/14/2023 Office Visit Gynecology Urology Nir Landa MD [address] [place] [address] Nurse Yury Fox [address] [place] [address] 01/20/2023 [facility] Lashay Blevins PA-C [address] [place] [address] Beverly Lozoya, Community Health Dynamicist [address] [place] [address] [place] [address] 01/22/2023 Office Visit Infectious Disease Vidya Fabian MD [address] [place] [address] 04/09/2023 Office Visit Urology Alfredo Panda MD [address] [place] [address] 04/28/2023 Office Visit Family Medicine Brian Domínguez MD [address] [facility] [address] 05/09/2023 Office Visit Gastroenterology Wendy Frias, DO [address] [place] [address] Scheduled Procedures Name Priority Associated Diagnoses Date/Ti [...] Additional history exists CKD PHOS USE SMARTSET 93879 10/24/202310/05, 02/18/2022, 02/17/2022, Additional history exists TSH 10/24/2023 10/23/2022, 02/05, 09/24/2021, Additional history exists CKD HGB USE SMARTSET 23662 11/22/202311/21, 11/21/2022, 04/25/2022, Additional history exists Colonoscopy [...] this encounter Medical Devices Implanted Type Area Hearing Healthcare Practitioner Device Identifier Shelf Expiration Date Model / Serial / Lot Sut Bob 6 [id number] - [id number] Implanted:Qty: 1 on 02/15/2011 at [place] [facility] [place] N/A: Chest DO NOT USE 07/21/2015 [id number] / / [id number] documented as of this encounter Advance Directives Documents on File Type Date Recorded Patient Splunk Architect Expl jeremy GARZON 05/06/2018 POL Latest Code Status on File Code Status Date Activated Date Inactivated Comments Full Code 06/25/2011 3:09 AM 06/26/2011 9:47 PM Thi s order reflects the patients wishes and were consensually agreed upon. Question Answer Comments Discussion of Advance Directives occurred with: Patient Does the patient have a Living Will? No Does the patient have Health Care Power of Parlor Chaperone? No Code Status History Code Status Date [...] the patient have Health Care Power of Parlor Chaperone? No Full Code 02/01/2010 4:02 PM 02/02/2010 4:09 PM This order reflects the patients wishes and were consensually agreed upon. Question Answer Comments Discussion of Advance Directives occurred with: Not Discussed Does the patient have a Living Will? No Does the patient have Health Care Power of Parlor Chaperone? No Healthcare Agents on File Name Relationship Healthcare Agent [facility] Communication Carolyn Elio Adult Child Health Care Agent Care Teams Hoop Maker Helper Machine Relationship Specialty Start Date End Date Brian Domínguez MD [address] [place] [address] PCP - General Family Medicine 07/16/17 documented as of this encounter
--- OUTSIDE RECORDS SUMMARY | 2023-05-17 12:18 | External Medical Summary | Summary of Care ---
Author Name Unknown Organization [facility] Address [address] [facility] [place] [address] Phone [phone] Care Team Providers Care Well Logging Operator Mud Analysis Name Role Phone Carmen Sifuentes MD Primary Care Provider +1- [phone] Reason for Visit * Reason Comments eRx-Medication Refill Encounter Details Date Type Department Care Team Description [facility]/23[facility] [address] [place] [address] Sobia Brewster PA-C [address] [place] [address] Atherosclerotic heart disease of [place] coronary artery with other forms of angina [...] Active venlafaxine XR (EFFEXOR XR) 150 MG MX78Qhlhhfyuyau:De pression Take 1 Cap by mouth daily. With food. 30 Cap 5 09/02/19 17 Active Additional Information Patient taking differently: 225 mgOral Daily(AM), With food.,Indications: Takes 225 mg total every morning with food (150 mg tab + 75 mg tab), Reported on 06/24/2022 Blood Glucose Monitoring Suppl ([employer] GLUCOMETER) w/Device KITIndications:Unc ontrolled type 2 diabetes mellitus without complication, without long-term current use of insulin Use as directed. Use as directed once daily 1 Kit 0 11/19/19 18 Active Blood Glucose Monitoring Suppl (pMediaNetwork) w/Device KIT Use as directed. Use as [...] long-term current use of insulin ([facility]) Inject 30 units under the skin twice daily 45 mL 3 04/16/20 22 Active Insulin Glargine Solostar 100 UNIT/ML Subcutaneous Solution Pen-injector (Basaglar KwikPen)Indication s:Type 2 diabetes mellitus with diabetic neuropathy, with long-term current use of insulin ([facility]) Inject 30 units under the skin twice [...] long-term current use of insulin ([facility]) USE TO CHECK BLOOD SUGAR THREE TIMES A DAY 300 Strip 1 05/11/20 22 Active Diclofenac Sodium 1 % External Gel (Voltaren) Apply topically to affected area 2 times a day. 150 g 3 06/05/20 22 Active Vitamin D (Ergocalciferol) 1.25 MG (01337 UT) Oral Capsule (Drisdol)Indicatio ns:Vitamin D deficiency [...] 60 Capsule 5 08/22/19 23 Active Nystatin 657685 UNIT/ML Mouth/Throat Suspension Swish and swallow 5 [...] Oral Tablet (Demadex)Indicatio ns:Atherosclerotic heart disease of [place] coronary artery with other forms of angina pectoris (HCC),Hypertensive heart disease with chronic diastolic congestive heart failure (HCC) TAKE 1 TABLET BY MOUTH EVERY MORNING. MAY TAKE 1 ADDITIONAL TABLET NEEDED FOR SWELLING. 90 Tablet 1 12/25/19 23 Active Torsemide 20 MG Oral Tablet (Demadex)Indicatio ns:Atherosclerotic heart disease of [place] coronary artery with other forms of angina [...] mg daily Atherosclerotic heart diseas e of [place] coronary artery with other forms of angina pectoris 11/15/2021 Last Assessment & Plan: Stable. No angina -continue toprol, ASA and statin Seasonal allergies 11/15/2021 Recurrent UTI 10/07/2021 Last Assessment & Plan: Followed by urology Pt is supposed to be on methenamine--will need to clarify with dgt that she is giving this. 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 Anxiety 08/05/2017 Uvbwpfd-Datfp-Lttxm disease 06/27/2015 Last Assessment & Plan: Frequent [...] 05/06/2018 019 Atherosclerotic heart diseas e of [place] coronary artery with other forms of angina [...] 10/31/201008/08 Acute coronary syndrome 10/30/2010 01/22/20 14 [employer] Research Other*[id number] 02/02/2010 04/18/2014 Overview: [place] Registry, Dr Joel Kwon PI Obesity, morbid [...] SWELLING.Authorizing Provider:CARMEN SIFUENTES * Telephone Encounter - Erinn Swan [facility] - 12/24/2022 12:57 PM EDTPending Prescriptions: Disp Refills Torsemide 20 MG Oral Tablet (Demadex) 90 Tab*1 Sig: TAKE 1 TABLET BY MOUTH EVERY MORNING. MAY TAKE 1 ADDITIONAL TABLET NEEDED FOR SWELLING. * Telephone Encounter - Erinn Swan [facility] - 12/24/2022 12:57 PM EDT Last approved by [facility]. Please advise/approve if appropriate. Thanks, Erinn Swan Clinical Pharmacist [facility] ([facility]) (Formerly Telepharmacy) [phone] 12/24/2022, 12:57 PM * Telephone Encounter - Gracie Daniels, [facility] - 12/23/2022 11:42 AM EDT Did you pend patient's preferred pharmacy and medication before forwarding?yes Pharmacy: [id number] Pending Prescriptions: Disp Refills Torsemide 20 MG [...] 12/27/2022 Cardiac Studies Cardiac Studies 12/30/2022 Telemedicine [facility] [address] [place] [address] 01/13/2023 Office Visit Cardiology Sobia Brewster PA-C [address] [place] [address] 01/14/2023 Office Visit Gynecology Urology Nir Landa MD [address] [place] [address] Nurse Yury Fox [address] [place] [address] 01/20/2023 Telemedicine [facility] Lashay Blevins PA-C [address] [place] [address] [address] [place] [address] 01/22/2023 Office Visit Infectious Disease Vidya Fabian MD [address] [place] [address] 04/09/2023 Office Visit Urology Alfredo Panda MD [address] [place] [id number] 04/28/2023 Office Visit Family Medicine Carmen Sifuentes MD [address] [facility] [id number] 05/09/2023 Office Visit Gastroenterology Wendy Frias, DO [address] [place] [address] Scheduled Procedures Name Priority Associated Diagnoses Date/Ti [...] Additional history exists CKD PHOS USE SMARTSET 76090 10/24/2023/03/2023, 02/18/2022, 02/17/2022, Additional history exists TSH 10/24/2023 10/23/2022, 02/05, 09/24/2021, Additional history exists CKD HGB USE SMARTSET 81462 11/22/202311/21, 11/21/2022, 04/25/2022, Additional history exists Colonoscopy [...] this encounter Medical Devices Implanted Type Area Cemetery Keeper Device Identifier Shelf Expiration Date Model / Serial / Lot Sut Steel 6 [id number] - [id number] Implanted:Qty: 1 on 02/15/2011 at [place] [facility] [place] N/A: Chest DO NOT USE 07/21/2015 [id number] / / [id number] documented as of this encounter Visit Diagnoses Diagnosis Atherosclerotic heart disease of [place] coronary artery with other forms of angina pectoris (HCC) Hypertensive heart disease with chronic diastolic congestive heart failure (HCC) documented in this encounter Advance Directives Documents on File Type Date Recorded Patient Patient Ombudsperson Expl 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 Question Answer Comments Discussion of Advance Directives occurred with: Patient Does the patient have a Living Will? No Does the patient have Health Care Power of Ammonium Nitrate Neutralizer? No Code Status History Code Status Date [...] the patient have Health Care Power of Ammonium Nitrate Neutralizer? No Full Code 02/01/2010 4:02 PM 02/02/2010 4:09 PM This order reflects the patients wishes and were consensually agreed upon. Question Answer Comments Discussion of Advance Directives occurred with: Not Discussed Does the patient have a Living Will? No Does the patient have Health Care Power of Ammonium Nitrate Neutralizer? No Healthcare Agents on File Name Relationship Healthcare Agent [facility] Communication Carolyn Goldmangerard Adult Child Health Care Agent Care Teams Well Logging Operator Mud Analysis Relationship Specialty Start Date End Date Carmen Sifuentes MD [address] [place] [address] PCP - General Family Medicine 07/16/17 documented as of this encounter
--- OUTSIDE RECORDS SUMMARY | 2023-05-17 12:18 | External Medical Summary | Summary of Care ---
Author Name Unknown Organization [facility] Address [address] [place] [address] Phone [phone] Care Team Providers Care Poster Name Role Phone Carmen Sifuentes MD Primary Care Provider [phone]- [phone] Reason for Visit * Reason Comments eRx-Medication Refill Encounter Details Date Type Department Care Team Description 12/25/2022 Refill [facility], [address] [address] Carmen Sifuentes MD [address] [place] [address] Allergies Active Allergy Reactions Severity Noted Date Comments Propoxyphene Hcl Rash Low 10/29/2010 Fentanyl Diarrhea Low 04/26/2010 anxiety Methocarbamol Medium 10/05/2020 Other reaction(s): Delirium Methocarbamol Low 04/15/2007 Zolpidem Low 10/05/2020 Other reaction(s): Confusion documented as of this encounter (statuses as of 12/25/2022) Medications Medication Sig Dispensed Refills Start Date End Date Status ARIPiprazole (ABILIFY) 2 MG Tablet Take 1 Tablet by mouth in the morning. 0 07/11/19 16 Active venlafaxine XR (EFFEXOR XR) 150 MG [id number]:De pression Take 1 Cap by mouth daily. With food. 30 Cap 5 09/02/19 17 Active Additional Information Patient taking differently: 225 mgOral Daily(AM), With food.,Indications: Takes 225 mg total every morning with food (150 mg tab + 75 mg tab), Reported on 06/24/2022 Blood Glucose Monitoring Suppl (fitkit-Metabiota GLUCOMETER) w/Device KITIndications:Unc ontrolled type 2 diabetes mellitus without complication, without long-term current use of insulin Use as directed. Use as directed once daily 1 Kit 0 11/19/19 18 Active Blood Glucose Monitoring Suppl ([employer]) w/Device KIT Use as directed. Use as [...] Respimat 2.5 MCG/ACT Inhalation Aerosol Solution (Tiotropium [place] Monohydrate) Inhale by mouth 2 Puffs in [...] 22 Active Vitamin D (Ergocalciferol) 1.25 MG (15754 UT) Oral Capsule (Drisdol)Indicatio ns:Vitamin D deficiency TAKE ONE CAPSULE BY MOUTH WEEKLY 12 Capsule 3 06/19/20 22 Active Benzonatate 100 MG Oral Capsule (Tessalon Perles) TAKE ONE CAPSULE BY MOUTH THREE TIMES DAILY NEEDED for cough. do not cut, crush or chew 50 Capsule 0 07/10/19 Active AIRS Disposable Nebulizer Kit Use as directed 1 Kit 0 07/17/19 23 Active Spironolactone 50 MG Oral Tablet (Aldactone)Indicat ions:GONZALEZ (nonalcoholic steatohepatitis),P ortal hypertension (HCC),Chronic liver disease and cirrhosis (HCC),Portal hypertensive gastropathy (HCC) Take 1 Tablet by mouth in the morning and 1 Tablet before bedtime. 60 Tablet 07/25/19 23 Active Ipratropium-Albute rol 0.5-2.5 (3) MG/3ML Inhalation Solution (Duoneb) Inhale 3 mL via nebulizer in the morning and 3 mL at noon and 3 mL in the evening and 3 mL before bedtime. 360 mL 08/05/19 Active Trulicity 4.5 MG/0.5ML Subcutaneous Solution Pen-injector (Dulaglutide) INJECT 4.5 mg subcutaneously once per week 6 mL 08/20/19 23 Active Gabapentin 300 MG Oral Capsule (Neurontin)Indicat ions:Lumbar spondylosis TAKE 1 CAPSULE BY MOUTH TWICE DAILY 60 Capsule 08/22/19 23 Active Nystatin 907336 UNIT/ML Mouth/Throat Suspension Swish and swallow 5 mL in the morning and 5 mL at noon and 5 mL in the evening and 5 mL before bedtime. For thrush.. 240 mL 09/06/19 Active Tamsulosin HCl 0.4 MG Oral Capsule (Flomax) Take 1 Capsule by mouth in the morning. Every morning.. 90 Capsule 09/19/19 23 Active Methenamine Hippurate 1 GM Oral Tablet (Hiprex)Indication s:Recurrent UTI Take 1 Tablet by mouth in the morning and 1 Tablet before bedtime. 60 Tablet 09/19/19 23 Active lamoTRIgine 25 MG Oral Tablet (LaMICtal) Take 1 tablet by mouth in the morning for a total of 125mg, then 2 tablets by mouth in the evening every day 0 09/09/19 23 Active metFORMIN HCl ER 500 MG Oral Tablet Extended Release 24 Hour (Glucophage XR) Take 1 Tablet by mouth daily with dinner. 30 Tablet 09/27/19 23 Active Famotidine 40 MG Oral [...] Capsule 1 12/21/19 23 Active UltiCare Pen [place] 31G X 5 MM (Insulin Pen Needle) use TWICE DAILY 200 Each 3 12/24/19 23 Active Torsemide 20 MG Oral Tablet (Demadex)Indicatio ns:Atherosclerotic heart disease of [place] coronary artery with other forms of angina pectoris (HCC),Hypertensive heart disease with chronic diastolic congestive heart failure (HCC) TAKE 1 TABLET BY MOUTH EVERY MORNING. MAY TAKE 1 ADDITIONAL TABLET NEEDED FOR SWELLING. 90 Tablet 1 12/25/19 23 Active Potassium Chloride Mag ER 20 MEQ Oral Tablet Extended Release (Klor-Con M20) TAKE 1 TABLET BY MOUTH EVERY MORNING - use when taking additional torsemide 30 Tablet 0 12/26/19 23 Active Potassium Chloride Mag ER 20 MEQ Oral Tablet Extended Release TAKE ONE TABLET BY MOUTH IN THE MORNING. to use when taking additional torsemide 30 Tablet 0 12/04/19 23 023 Discontinued Hospital, Clinic, or Other [...] as of this encounter (statuses as of 12/25/2022) Active Problems Problem Noted Date Hypertensive heart [...] is giving this. 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 Anxiety 08/05/2017 Ejptscc-Jbtbk-Rmnie disease 06/27/2015 Last Assessment & Plan: Frequent [...] as of this encounter (statuses as of 12/25/2022) Resolved Problems Problem Noted Date Resolved Date [...] 10/31/201008/08 Acute coronary syndrome 10/30/2010 01/22/20 14 [employer] Other*[id number] 02/02/2010 04/18/2014 Overview: [place] [facility], Dr Joel Kwon [place] Obesity, morbid [...] as of this encounter (statuses as of 12/25/2022) Immunizations Name Administration Dates Next Due COVID-19 [...] Telephone Encounter - Carmen Sifuentes MD - 12/25/2022 3:52 PM EDTSigned Prescriptions: Disp Refills Potassium Chloride Mag ER 20 MEQ Oral Tab*30 Tab*0 Sig: TAKE 1 TABLET BY MOUTH EVERY MORNING - use when taking additional torsemideAuthorizing Provider: CARMEN SIFUENTES * Telephone Encounter - Yarelis Ospina LPN - 12/25/2022 3:22 PM EDTPending Prescriptions: Disp Refills Klor-Con M20 20 MEQ Oral Tablet Extended R*30 Tab*0 Sig: TAKE 1 TABLET BY MOUTH EVERY MORNING - use when taking additional torsemide * Telephone Encounter - Yarelis Ospina LPN - 12/25/2022 3:20 PM EDT Did you pend patient's preferred pharmacy and medication before forwarding?yes Pharmacy: [id number] [address] [facility] Pending Prescriptions: Disp Refills Potassium Chloride Mag ER 20 MEQ Oral Ta*30 Tab*0 Sig: TAKE 1 TABLET BY MOUTH EVERY MORNING - use when taking additional torsemide Last Visit: Visit date not found (in office), 12/20/2022 (telemedicine) Next Visit: 01/20/2023 If no future appointments scheduled, and last [...] AM HGBA1C 5.9 (H) 05/22/2020 01:24 PM Yarelis Ospina LPN [facility] 12/25/2022,3:20 PM documented in this encounter Plan of Treatment Upcoming Encounters Date Type Specialty Care Team Description 12/27/2022 Cardiac Studies Cardiac Studies 12/30/2022 Telemedicine Pharmacy Branden Castellanos [address] [address] 01/13/2023 Office Visit Cardiology Sobia Brewster PAAttilaC [address] [place] [address] 01/14/2023 Office Visit Gynecology Urology Nir Landa MD [address] [place] [address] Nurse Yury Fox [address] [place] [address] 01/20/2023 Telemedicine [facility] Lashay Blevins PA-C [address] [place] [address] Beverly Lozoya, [facility] [address] [place] [phone] 01/22/2023 Office Visit Infectious Disease Vidya Fabian MD [address] [place] [address] 04/09/2023 Office Visit Urology Alfredo Panda MD [address] [facility] [address] [place] [address] 04/28/2023 Office Visit Family Medicine Carmen Sifuentes MD [address] [place] [address] 05/09/2023 Office Visit Gastroenterology Wendy Frias DO [address] [place] [address] Scheduled Procedures Name Priority Associated Diagnoses Date/Ti [...] Additional history exists CKD PHOS USE SMARTSET 69504 10/24/202310/05, 02/18/2022, 02/17/2022, Additional history exists TSH 10/24/2023 10/23/2022, 02/05, 09/24/2021, Additional history exists CKD HGB USE SMARTSET 61690 11/22/202311/21, 11/21/2022, 04/25/2022, Additional history exists Colonoscopy [...] this encounter Medical Devices Implanted Type Area Tamper Operator Device Identifier Shelf Expiration Date Model / Serial / Lot Sut Bob 6 [id number] - [id number] Implanted:Qty: 1 on 02/15/2011 [place] [facility] [place]: Chest DO NOT USE 07/21/2015 [id number] / / [id number] documented as of this encounter Advance Directives Documents on File Type Date Recorded 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 Question Answer Comments Discussion of Advance Directives occurred with: Patient Does the patient have a Living Will? No Does the patient have Health Care Power of Clothing Room Supervisor? No Code Status History Code Status [...] the patient have Health Care Power of Clothing Room Supervisor? No Full Code 02/01/2010 4:02 PM 02/02/2010 4:09 PM This order reflects the patients wishes and were consensually agreed upon. Question Answer Comments Discussion of Advance Directives occurred with: Not Discussed Does the patient have a Living Will? No Does the patient have Health Care Power of Clothing Room Supervisor? No Healthcare Agents on File Name Relationship Healthcare Agent Relationshi p Communication Carolyn Ballard Adult Child Health Care Agent Care Teams Poster Relationship Specialty Start Date End Date Carmen Sifuentes MD [address] [place] [phone] PCP - General Family Medicine 07/16/17 documented as of this encounter
--- OUTSIDE RECORDS SUMMARY | 2023-05-17 12:19 | External Medical Summary | Summary of Care ---
Author Name Unknown Organization [facility] Address [address] [facility] [place] [address] Phone [phone] Care Team Providers Care Animal Shelter Supervisor Name Role Phone Brian Domínguez MD Primary Care Provider [phone]- [phone] Reason for Visit * Reason Onset Date Comments [facility]: Maintenance 12/18/2022 Encounter Details Date Type Department Care Team Description 12/18/2022 Telephone [facility], [facility] [address] [facility] [place] [address] [facility], Nurse [facility] [address] [facility] [place] [address] [facility]: Maintenance Allergies Active Allergy Reactions Severity Noted Date Comments Propoxyphene Hcl Rash Low 10/29/2010 Fentanyl Diarrhea Low 04/26/2010 anxiety Methocarbamol Medium 10/05/2020 Other reaction(s): Delirium Methocarbamol Low 04/15/2007 Zolpidem Low 10/05/2020 Other reaction(s): Confusion documented as of this encounter (statuses as of 12/18/2022) Medications Medication Sig Dispensed Refills Start Date End Date Status ARIPiprazole (ABILIFY) 2 MG Tablet Take 1 Tablet by mouth in the morning. 0 2015 Active venlafaxine XR (EFFEXOR XR) 150 MG [id number]:Dep ression Take 1 Cap by mouth daily. [...] 0 11/18/2017 Active Blood Glucose Monitoring Suppl ([employer] Feint VERIO) w/Device KIT Use as directed. Use as directed. 1 Kit 0 10/31/2018 Active Spacer/Aero-Holding Chambers WISAM Use with inhaler. Wheezing/bronchitis . 1 Device 0 04/08/2019 Active GEO'Supp DelYR Free Lancets 33G MISC USE UP TO FOUR TIMES A DAY Dx:E11.4 100 Each 5 09/30/2019 Active Lancet Devices (LinekongTOUCH DELICA LANCING DEV) MISC Use four times [...] every morning. 30 Tablet 5 03/12/2022 Active Polyethylene Glycol 3350 17 GM/SCOOP Oral Powder (Miralax) USE 1/2 OF BOTTLE IN 32 OUNCES OF G[place]ADE THE DAY BEFORE AND THE DAY OF PROCEDURE DIRECTED 238 g 0 03/19/2022 Active UltiCare Pen [place] 31G X 5 MM (Insulin Pen Needle) USE ONE NEEDLE TWICE DAILY 200 Each 3 04/03/2022 Active Insulin Glargine Solostar 100 UNIT/ML Subcutaneous Solution Pen-injector (Ivivi Technologiesaglar KwikPen)Indications :Type 2 diabetes mellitus with diabetic neuropathy, with long-term current use of insulin ([facility]) Inject 30 units under the skin twice daily 45 mL 3 04/16/2022 Active Insulin Glargine Solostar 100 UNIT/ML Subcutaneous Solution Pen-injector (Ivivi Technologiesaglar KwikPen)Indications :Type 2 diabetes mellitus with diabetic neuropathy, with long-term current use of insulin ([facility]) Inject 30 units under the skin twice [...] Respimat 2.5 MCG/ACT Inhalation Aerosol Solution (Tiotropium [place] Monohydrate) Inhale by mouth 2 Puffs in the morning. 4 g 3 04/25/2022 Active Estradiol 0.1 MG/GM Vaginal Cream Administer into the vagina 1 g in the morning. 42.5 g 12 05/07/2022 Active OneTouch Verio In Vitro Strip (Glucose Blood)Indications:T ype 2 diabetes mellitus with diabetic neuropathy, with long-term current use of insulin ([facility]) USE TO CHECK BLOOD SUGAR THREE TIMES A DAY 300 Strip 1 05/11/2022 Active Torsemide 20 MG Oral Tablet (Demadex)Indication s:Atherosclerotic heart disease of [place] coronary artery with other forms of angina [...] 06/05/2022 Active Vitamin D (Ergocalciferol) 1.25 MG (27388 UT) Oral Capsule (Drisdol)Indication s:Vitamin D deficiency TAKE ONE CAPSULE BY MOUTH WEEKLY 12 Capsule 3 06/19/2022 Active Montelukast Sodium 10 MG Oral Tablet (Singulair)Indicati ons:Nasal sinus congestion,PND (post-nasal drip) TAKE 1 TABLET BY MOUTH ONCE DAILY 90 Tablet 1 06/25/2022 Active Benzonatate 100 MG Oral Capsule (Tessalon Perles) TAKE ONE CAPSULE BY MOUTH THREE TIMES DAILY NEEDED for cough. do not cut, crush or chew 50 Capsule 0 07/10/2022 Active Ezoic Disposable Nebulizer Kit Use as directed 1 Kit 0 07/17/2022 Active Spironolactone 50 MG Oral Tablet (Aldactone)Indicati ons:GONZALEZ (nonalcoholic steatohepatitis),Po rtal hypertension (HCC),Chronic liver disease and cirrhosis (HCC),Portal hypertensive gastropathy (HCC) Take 1 Tablet by mouth in the morning and 1 Tablet before bedtime. 60 Tablet 5 07/25/2022 Active Phenazopyridine HCl 200 MG Oral Tablet (Pyridium) Take 1 Tablet by mouth 3 times a day as needed for Pain, Moderate. After meals for pain with urination 6 Tablet 2 08/01/2022 Active Ipratropium-Albuter ol 0.5-2.5 (3) MG/3ML Inhalation [...] DAILY 60 Capsule 5 08/22/2022 Active Nystatin 541245 UNIT/ML Mouth/Throat Suspension Swish and swallow 5 [...] other medications 90 Tablet 3 12/10/2022 Active Cefdinir 300 MG Oral Capsule (Omnicef)Indication s:UTI symptoms Take 1 Capsule by mouth in the morning and 1 Capsule before bedtime. Do all this for 10 days. For 10 days.. 20 Capsule 0 12/13/2022 12/24/19 23 Active Xifaxan 550 MG Oral Tablet (rifAXIMin)Indicati ons:GONZALEZ (nonalcoholic steatohepatitis),Ch ronic liver disease and cirrhosis (HCC),Hepatic encephalopathy (HCC) TAKE 1 TABLET BY MOUTH TWICE DAILY 60 Tablet 5 12/16/2022 Active Hospital, Clinic, or Other Facility Administered [...] as of this encounter (statuses as of 12/18/2022) Active Problems Problem Noted Date Hypertensive heart and kidne y disease with chronic diastolic congestive heart failure and stage 3a chronic kidney disease 12/28/2021 Last Assessment & Plan: Euvolemic, BP stable EF 55% 09/25 GFR 69 02/25 -Continue Torsemide 20 mg BID, Spironolactone 25 mg BID, Tropol XL 50 mg daily Atherosclerotic heart diseas e of [place] coronary artery with other forms of angina pectoris 11/15/2021 Last Assessment & Plan: Stable. No angina -continue toprol, ASA and statin Seasonal allergies 11/15/2021 Recurrent UTI 10/07/2021 Last Assessment & Plan: Followed by urology Pt is supposed to be on methenamine--will need to clarify with dgt that she is giving this. 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 She as trying to return call, but was transferred to [facility]. Chart reviewed and patient is not with [facility]. No telephone calls noted in chart from yesterday. Unable to find out who CM is. Daughter will call back and ask to speak to (not [facility] CM) Pilar Reyes. RN [facility] trimmer sorter [phone] documented in this encounter Plan of Treatment Upcoming Encounters Date Type Specialty Care Team Description 12/20/2022 Telemedicine [facility] Lashay Blevins PA-C [address] [place] [address] Beverly Lozoya, [facility] [address] [place] [address] 12/27/2022 Cardiac Studies Cardiac Studies 12/30/2022 Telemedicine Pharmacy [facility] [address] [place] [address] 01/13/2023 Office Visit Cardiology Sobia Brewster PA-C [address] [place] [address] 01/14/2023 Office Visit Gynecology Urology Nir Landa MD [address] [place] [address] Nurse Yury Fox [address] [place] [address] 01/22/2023 Office Visit Infectious Disease Vidya Fabian MD [address] [place] [address] 04/09/2023 Office Visit Urology Alfredo Panda MD [address] [place], [place] [phone] 04/28/2023 Office Visit Family Medicine Brian Domínguez MD [address] [place] [address] 05/09/2023 Office Visit Gastroenterology Wendy Frias DO [address] [place] [address] Scheduled Procedures Name Priority Associated Diagnoses Date/Ti [...] Additional history exists CKD PHOS USE SMARTSET 11651 10/24/202310/05, 02/18/2022, 02/17/2022, Additional history exists TSH 10/24/2023 10/23/2022, 02/05, 09/24/2021, Additional history exists CKD HGB USE SMARTSET 49262 11/22/202311/21, 11/21/2022, 04/25/2022, Additional history exists Colonoscopy [...] this encounter Medical Devices Implanted Type Area Controls Project Engineer Device Identifier Shelf Expiration Date Model / Serial / Lot Jenna Rojas 6 [id number] - [id number] Implanted:Qty: 1 on 02[place] [facility] [place] Chest DO NOT USE 07/21/2015 [id number] / / [id number] documented as of this encounter Advance Directives Documents on File Type Date Recorded Patient Master [employer] Jose GARZON 05/06/2018 POL Latest Code Status on File Code Status Date Activated Date Inactivated Comments Full Code 06/25/2011 3:09 AM 06/26/2011 9:47 PM Thi s order reflects the patients wishes and were consensually agreed upon. Question Answer Comments Discussion of Advance Directives occurred with: Patient Does the patient have a Living Will? No Does the patient have Health Care Power of Psychiatric Assistant? No Code Status History Code Status Date [...] the patient have Health Care Power of Psychiatric Assistant? No Full Code 02/01/2010 4:02 PM 02/02/2010 4:09 PM This order reflects the patients wishes and were consensually agreed upon. Question Answer Comments Discussion of Advance Directives occurred with: Not Discussed Does the patient have a Living Will? No Does the patient have Health Care Power of Psychiatric Assistant? No Healthcare Agents on File Name Relationship Healthcare Agent [facility] p Communication Carolyn Ballard Adult Child Health Care Agent Care Teams Animal Shelter Supervisor Relationship Specialty Start Date End Date Brian Domínguez MD [address] [place] [address] PCP - General Family Medicine 07/16/17 documented as of this encounter
--- OUTSIDE RECORDS SUMMARY | 2023-05-17 12:19 | External Medical Summary | Summary of Care ---
Author Name Unknown Organization [facility] Address [address] [place] [address] Phone [phone] Care Team Providers Care Electorate Officer Name Role Phone Carmen Sifuentes MD Primary Care Provider [phone]- [phone] Reason for Visit * Reason Comments eRx-Medication Refill Encounter Details Date Type Department Care Team Description 12/15/2022 Refill [facility] [address] [place] [address] Carmen Sifuentes MD [address] [place] [address] GONZALEZ (nonalcoholic steatohepatitis); Chronic liver disease and cirrhosis (HCC); Hepatic encephalopathy (HCC) Allergies Active Allergy Reactions Severity Noted Date Comments Propoxyphene Hcl Rash Low 10/29/2010 Fentanyl Diarrhea Low 04/26/2010 anxiety Methocarbamol Medium 10/05/2020 Other reaction(s): Delirium Methocarbamol Low 04/15/2007 Zolpidem Low 10/05/2020 Other reaction(s): Confusion documented as of this encounter (statuses as of 12/16/2022) Medications Medication Sig Dispensed Refills Start Date End Date Status ARIPiprazole (ABILIFY) 2 MG Tablet Take 1 Tablet by mouth in the morning. 0 07/11/19 16 Active venlafaxine XR (EFFEXOR XR) 150 MG [id number]:De pression Take 1 Cap by mouth daily. [...] 11/19/19 18 Active Blood Glucose Monitoring Suppl (Osen) w/Device KIT Use as directed. Use as directed. 1 Kit 0 11/01/19 19 Active Spacer/Aero-Holdin g Chambers WISAM Use with inhaler. Wheezing/bronchiti s. 1 Device 0 04/08/20 19 Active OneTouch Delica Lancets 33G MISC USE UP TO FOUR TIMES A DAY Dx:E11.4 100 Each 5 09/30/19 20 Active Lancet Devices (CleverSetTOUCH DELICA LANCING DEV) MISC Use four times [...] morning. 30 Tablet 5 03/12/20 22 Active Polyethylene Glycol 3350 17 GM/SCOOP Oral Powder (Miralax) USE 1/2 OF BOTTLE IN 32 OUNCES OF GATORADE THE DAY BEFORE AND THE DAY OF PROCEDURE DIRECTED 238 g 0 03/19/20 22 Active UltiCare Pen [place] 31G X 5 MM (Insulin Pen Needle) USE ONE NEEDLE TWICE DAILY 200 Each 3 04/03/20 22 Active Insulin Glargine Solostar 100 UNIT/ML Subcutaneous Solution Pen-injector (Basaglar KwikPen)Indication s:Type 2 diabetes mellitus with diabetic neuropathy, with long-term current use of insulin ([facility]) Inject 30 units under the skin twice daily 45 mL 3 04/16/20 22 Active Insulin Glargine Solostar 100 UNIT/ML Subcutaneous Solution Pen-injector (Basaglar KwikPen)Indication s:Type 2 diabetes mellitus with diabetic neuropathy, with long-term current use of insulin ([facility]) Inject 30 units under the skin twice [...] Respimat 2.5 MCG/ACT Inhalation Aerosol Solution (Tiotropium [place] Monohydrate) Inhale by mouth 2 Puffs in [...] Oral Tablet (Demadex)Indicatio ns:Atherosclerotic heart disease of [place] coronary artery [...] 22 Active Vitamin D (Ergocalciferol) 1.25 MG (48105 UT) Oral Capsule (Drisdol)Indicatio ns:Vitamin D deficiency TAKE ONE CAPSULE BY MOUTH WEEKLY 12 Capsule 3 06/19/20 22 Active Montelukast Sodium 10 MG Oral Tablet (Singulair)Indicat ions:Nasal sinus congestion,PND (post-nasal drip) TAKE 1 TABLET BY MOUTH ONCE DAILY 90 Tablet 1 06/25/20 22 Active Benzonatate 100 MG Oral Capsule [...] bedtime. 60 Tablet 5 07/25/19 23 Active Phenazopyridine HCl 200 MG Oral Tablet (Pyridium) Take 1 Tablet by mouth 3 times a day as needed for Pain, Moderate. After meals for pain with urination 6 Tablet 2 08/01/19 23 Active Ipratropium-Albute rol 0.5-2.5 (3) MG/3ML [...] 60 Capsule 5 08/22/19 23 Active Nystatin 584374 UNIT/ML Mouth/Throat Suspension Swish and swallow 5 mL in the morning and 5 mL at noon and 5 mL in the evening and 5 mL before bedtime. For thrush.. 240 mL 1 09/06/19 Active Tamsulosin HCl 0.4 MG Oral Capsule (Flomax) Take 1 Capsule by mouth in the morning. Every morning.. 90 Capsule 3 09/19/19 23 Active Methenamine Hippurate 1 GM Oral Tablet (Hiprex)Indication s:Recurrent UTI Take 1 Tablet by mouth in the morning and 1 Tablet before bedtime. 60 Tablet 3 09/19/19 Active lamoTRIgine 25 MG Oral Tablet (LaMICtal) [...] medications 90 Tablet 3 12/11/19 23 Active Cefdinir 300 MG Oral Capsule (Omnicef)Indicatio ns:UTI symptoms Take 1 Capsule by mouth in the morning and 1 Capsule before bedtime. Do all this for 10 days. For 10 days.. 20 Capsule 0 12/14/19 23 023 Active Xifaxan 550 MG Oral Tablet (rifAXIMin)Indicat ions:GONZALEZ (nonalcoholic steatohepatitis),C hronic liver disease and cirrhosis (HCC),Hepatic encephalopathy (HCC) TAKE 1 TABLET BY MOUTH TWICE DAILY 60 Tablet 5 12/17/19 23 Active Xifaxan 550 MG Oral Tablet (rifAXIMin)Indicat ions:GONZALEZ (nonalcoholic steatohepatitis),C hronic liver disease and cirrhosis (HCC),Hepatic encephalopathy (HCC) TAKE 1 TABLET BY MOUTH TWICE DAILY 60 Tablet 5 06/27/20 023 Discontinued Hospital, Clinic, or Other Facility [...] as of this encounter (statuses as of 12/16/2022) Active Problems Problem Noted Date Hypertensive heart [...] is giving this. 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 therapy 1 [...] as of this encounter (statuses as of 12/16/2022) Immunizations Name Administration Dates Next Due COVID-19 [...] Telephone Encounter - Carmen Sifuentes MD - 12/16/2022 12:59 PM EDTSigned Prescriptions: Disp Refills Xifaxan 550 MG Oral Tablet (rifAXIMin) 60 Tab*5 Sig: TAKE 1 TABLET BY MOUTH TWICE DAILYAuthorizing Provider: CARMEN SIFUENTES * Telephone Encounter - Savana Tucker LPN - 12/16/2022 9:44 AM EDTPending Prescriptions: Disp Refills Xifaxan 550 MG Oral Tablet [Pharmacy Med N*60 Tab*0 Sig: TAKE 1 TABLET BY MOUTH TWICE DAILY * Telephone Encounter - Savana Tucker LPN - 12/16/2022 9:43 AM EDT Pending Prescriptions: Disp Refills Xifaxan 550 MG Oral Tablet (rifAXIMin) [P*60 Tab*0 Sig: TAKE 1 TABLET BY MOUTH TWICE DAILY Last Visit: 11/26/2022 (in office), 03/06/2022 (telemedicine) Next Visit: 04/28/2023 Last date the medication was ordered: 06/27/22 Patient Active Problem List Diagnosis Code PERONEAL MUSCLE ATROPHY G60.0 Gastroesophageal reflux disease without esophagitis K21.9 S/P angioplasty with stent Z95.820 Dyslipidemia, goal LDL below 70 E78.5 Hypothyroidism E03.9 GONZALEZ (nonalcoholic steatohepatitis) K75.81 Bipolar I disorder, most recent episode depressed, moderate (HCC) F31.32 HTN, goal below 130/80 I10 MEDICATION USE AGREEMENT [id number] Qpstinj-Vuqvq-Itkcj disease G60.0 Anxiety F41.9 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, T40.601A Hypertensive heart disease with chronic diastolic congestive heart failure (HCC) I11.0, I50.32 Fatty liver K76.0 Chronic liver disease and cirrhosis (HCC) K74.60, K76.9 Portal hypertensive gastropathy (HCC) K76.6, K31.89 Moderate aortic stenosis I35.0 Type 2 diabetes mellitus with diabetic neuropathy (HCC) E11.40 Diabetic gastroparesis (HCC) E11.43, K31.84 intermediate (current) use of insulin (HCC) Z79.4 Pelvic pain R10.2 Urge incontinence N39.41 Type 2 diabetes mellitus with diabetic neuropathy, with long-term current use of insulin (HCC) E11.40, Z79.4 Type 2 diabetes mellitus with stage 3a chronic kidney disease, with long- term current use of insulin (HCC) E11.22, N18.31, Z79.4 Recurrent UTI N39.0 Atherosclerotic heart disease of [place] coronary artery with other forms of angina pectoris (HCC) I25.118 Seasonal allergies J30.2 Hypertensive heart and kidney disease with chronic diastolic congestive heart failure and aaute6j chronic kidney disease (HCC) I13.0, I50.32, N18.31 Labs: Lab Results Component Value Date/Time CREATININE [...] - [facility] 6.3 (H) 02/18/2019 02:55 PM * Telephone Encounter - Marine Jacob - 12/15/2022 9:13 AM EDTPending Prescriptions: Disp Refills Xifaxan 550 MG Oral Tablet [Pharmacy Med N*60 Tab*0 Sig: TAKE 1TABLET BY MOUTH TWICE DAILY documented in this encounter Plan of Treatment Upcoming Encounters Date Type Specialty Care Team Description 12/20/2022 Telemedicine [facility] Lashay Blevins PA-C [address] [place] [address] Beverly Lozoya [address] [place] [phone] 12/27/2022 Cardiac Studies Cardiac Studies 12/30/2022 Telemedicine Pharmacy [address] [address] 01/13/2023 Office Visit Cardiology Sobia Brewster PA-C [address] [facility] [place] [address] 01/22/2023 Office Visit Infectious Disease Vidya Fabian MD [address] [place] [address] 04/09/2023 Office Visit Urology Alfredo Panda MD [address] [place] [address] 04/28/2023 Office Visit Family Medicine Carmen Sifuentes MD [address] [place] [address] 05/09/2023 Office Visit Gastroenterology Wendy Frias DO [address] [place] [address] Scheduled Procedures Name Priority Associated Diagnoses Date/Ti [...] Additional history exists CKD PHOS USE SMARTSET 36455 10/24/202310/05, 02/18/2022, 02/17/2022, Additional history exists TSH 10/24/2023 10/23/2022, 02/05, 09/24/2021, Additional history exists CKD HGB USE SMARTSET 34453 11/22/202311/21, 11/21/2022, 04/25/2022, Additional history exists Colonoscopy [...] this encounter Medical Devices Implanted Type Area Paste Mixer Liquid Device Identifier Shelf Expiration Date Model / Serial / Lot Sut Steel 6 [id number] - [id number] Implanted:Qty: 1 on 02/15/2011 at OR [facility] [place] N/A: Chest DO NOT USE 07/21/2015 [id number] / / [id number] documented as of this encounter Visit Diagnoses Diagnosis GONZALEZ (nonalcoholic steatohepatitis) Other chronic nonalcoholic liver disease Chronic liver disease and cirrhosis (HCC) Unspecified chronic liver disease without mention of alcohol Hepatic encephalopathy (HCC) Hepatic encephalopathy documented in this encounter Advance Directives Documents on File Type Date Recorded Patient Customer Account Technician Expl anation POL 05/06/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 Question Answer Comments Discussion of Advance Directives occurred with: Patient Does the patient have a Living Will? No Does the patient have Health Care Power of Full Charge Bookkeeper? No Code Status History Code Status Date [...] the patient have Health Care Power of Full Charge Bookkeeper? No Full Code 02/01/2010 4:02 PM 02/02/2010 4:09 PM This order reflects the patients wishes and were consensually agreed upon. Question Answer Comments Discussion of Advance Directives occurred with: Not Discussed Does the patient have a Living Will? No Does the patient have Health Care Power of Full Charge Bookkeeper? No Healthcare Agents on File Name Relationship Healthcare Agent [facility] Communication Carolyn Elio Adult Child Health Care Agent Care Teams Electorate Officer Relationship Specialty Start Date End Date Carmen Sifuentes MD [address] [place] [address] PCP - General Family Medicine 07/16/17 documented as of this encounter
--- OUTSIDE RECORDS SUMMARY | 2023-05-17 12:19 | External Medical Summary | Summary of Care ---
Author Name Unknown Organization [facility] Address [address] [place] [address] Phone [phone] Care Team Providers Care Dean Of Boys Name Role Phone Brian Domínguez MD Primary Care Provider [phone]- [phone] Reason for Visit * Reason Onset Date Comments Information 12/20/2022 Encounter Details Date Type Department Care Team Description 12/20/2022 Telephone [facility] [place] [address] [place] [address] Services, Scheduling [address] [place] [address] Information Allergies Active Allergy Reactions Severity Noted Date Comments Propoxyphene Hcl Rash Low 10/29/2010 Fentanyl Diarrhea Low 04/26/2010 anxiety Methocarbamol Medium 10/05/2020 Other reaction(s): Delirium Methocarbamol Low 04/15/2007 Zolpidem Low 10/05/2020 Other reaction(s): Confusion documented as of this encounter (statuses as of 12/20/2022) Medications Medication Sig Dispensed Refills Start Date End Date Status ARIPiprazole (ABILIFY) 2 MG Tablet Take 1 Tablet by mouth in the morning. 0 2015 Active venlafaxine XR (EFFEXOR XR) 150 MG [id number]:Dep ression Take 1 Cap by mouth daily. [...] 0 11/18/2017 Active Blood Glucose Monitoring Suppl (Cebix VERIO) w/Device KIT Use as directed. Use as directed. 1 Kit 0 10/31/2018 Active Spacer/Aero-Holding Chambers WISAM Use with inhaler. Wheezing/bronchitis . 1 Device 0 04/08/2019 Active OneTouch [employer]Aria [employer] Lancets 33G MISC USE UP TO FOUR [...] 30 Tablet 5 03/12/2022 Active UltiCare Pen [place] 31G X 5 MM (Insulin Pen Needle) USE ONE NEEDLE TWICE DAILY 200 Each 3 04/03/2022 Active Insulin Glargine Solostar 100 UNIT/ML Subcutaneous Solution Pen-injector (Basaglar KwikPen)Indications :Type 2 diabetes mellitus with diabetic neuropathy, with long-term current use of insulin ([facility]) Inject 30 units under the skin twice daily 45 mL 3 04/16/2022 Active Insulin Glargine Solostar 100 UNIT/ML Subcutaneous Solution Pen-injector (Basaglar KwikPen)Indications :Type 2 diabetes mellitus with diabetic neuropathy, with long-term current use of insulin ([facility]) Inject 30 units under the [...] Respimat 2.5 MCG/ACT Inhalation Aerosol Solution (Tiotropium [place] Monohydrate) Inhale by mouth 2 Puffs in the morning. 4 g 3 04/25/2022 Active Estradiol 0.1 MG/GM Vaginal Cream Administer into the vagina 1 g in the morning. 42.5 g 12 05/07/2022 Active OneTouch Verio In Vitro Strip (Glucose Blood)Indications:T ype 2 diabetes mellitus with diabetic neuropathy, with long-term current use of insulin ([facility]) USE TO CHECK BLOOD SUGAR THREE TIMES A DAY 300 Strip 1 05/11/2022 Active Torsemide 20 MG Oral Tablet (Demadex)Indication s:Atherosclerotic heart disease of [place] coronary artery with other forms of angina pectoris (HCC),Hypertensive heart disease with chronic diastolic congestive heart failure ([facility]) TAKE 1 TABLET BY MOUTH EVERY MORNING. MAY TAKE 1 ADDITIONAL TABLET NEEDED FOR SWELLING. 90 Tablet 0 05/13/2022 Active Diclofenac Sodium 1 % External Gel (Voltaren) Apply topically to affected area 2 times a day. 150 g 3 06/05/2022 Active Vitamin D (Ergocalciferol) 1.25 MG (55822 UT) Oral Capsule (Drisdol)Indication s:Vitamin D deficiency [...] DAILY 60 Capsule 5 08/22/2022 Active Nystatin 271719 UNIT/ML Mouth/Throat Suspension Swish and swallow 5 [...] 10 days.. 20 Capsule 1 12/20/2022 Active Fluconazole 150 MG Oral Tablet (Diflucan) Take 1 Tablet by mouth once for 1 dose. 1 Tablet 1 12/20/2022 12/21/19 23 Active Hospital, Clinic, or Other Facility [...] as of this encounter (statuses as of 12/20/2022) Active Problems Problem Noted Date Hypertensive heart and kidne y disease with chronic diastolic congestive heart failure and stage 3a chronic kidney disease 12/28/2021 Last Assessment & Plan: Euvolemic, BP stable EF 55% 09/25 GFR 69 02/25 -Continue Torsemide 20 mg BID, Spironolactone 25 mg BID, Tropol XL 50 mg daily Atherosclerotic heart diseas e of [place] coronary artery with other forms of angina pectoris 11/15/2021 Last Assessment & Plan: Stable. No angina -continue toprol, ASA and statin Seasonal allergies 11/15/2021 Recurrent UTI 10/07/2021 Last Assessment & Plan: Followed by urology Pt is supposed to be on methenamine--will need to clarify with dgt that she is giving this. 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 coronary artery with other forms of angina [...] 10/31/201008/08 Acute coronary syndrome 10/30/2010 01/22/20 14 [employer] Research Other*[id number] 02/02/2010 04/18/2014 Overview: [place] [facility], Dr Joel Kwon PI Obesity, morbid [...] thrombosis 06/17/2006 01/21/2014 jail current use of anticoagulant therapy 1 08/18/2005 [...] as of this encounter (statuses as of 12/20/2022) Immunizations Name Administration Dates Next Due COVID-19 [...] * Telephone Encounter - DENG Cruz - 12/20/2022 11:18 AM EDT Mobile Imaging: Venous doppler & holly mobile imaging Call to [facility], they don't do holly Call to [facility] faxed holly order and pt ins/demo to [phone], [facility] doesn't do ultrasounds documented in this encounter Plan of Treatment Upcoming Encounters Date Type Specialty Care Team Description 12/27/2022 Cardiac Studies Cardiac Studies 12/30/2022 Telemedicine Pharmacy [facility] [address] [place] [address] 01/13/2023 Office Visit Cardiology Sobia Brewster PA-C [address] [place] [address] 01/14/2023 Office Visit Gynecology Urology Nir Landa MD [address] [place] [address] Nurse Yury Fox [address] [place] [address] 01/20/2023 Telemedicine [facility] Lashay Blevins PA-C [address] [place] [address] Beverly Lozoya, [facility] [employer]ching [employer] [address] [place] [address] [place] [address] 01/22/2023 Office Visit Infectious Disease Vidya Fabian MD [address] [place] [address] 04/09/2023 Office Visit Urology Alfredo Panda MD [address] [place] [address] 04/28/2023 Office Visit Family Medicine Brian Domínguez MD [address] [facility] [place] [address] 05/09/2023 Office Visit Gastroenterology Wendy Frias, DO [address] [place] [address] Scheduled Procedures Name Priority Associated Diagnoses Date/Ti [...] Additional history exists CKD PHOS USE SMARTSET 55829 10/24/202310/05, 02/18/2022, 02/17/2022, Additional history exists TSH 10/24/2023 10/23/2022, 02/05, 09/24/2021, Additional history exists CKD HGB USE SMARTSET 54249 11/22/202311/21, 11/21/2022, 04/25/2022, Additional history exists Colonoscopy [...] this encounter Medical Devices Implanted Type Area Biblical Studies Professor Device Identifier Shelf Expiration Date Model / Serial / Lot Jenna Rojas 6 [id number] - [id number] Implanted:Qty: 1 on 02/15/2011 [place] [facility] [place]A: Chest DO NOT USE 07/21/2015 [id number] / / [id number] documented as of this encounter Advance Directives Documents on File Type Date Recorded Patient 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 No Code Status History Code Status Date [...] the patient have Health Care Power of Facility Service Associate? No Full Code 02/01/2010 4:02 PM 02/02/2010 4:09 PM This order reflects the patients wishes and were consensually agreed upon. Question Answer Comments Discussion of Advance Directives occurred with: Not Discussed Does the patient have a Living Will? No Does the patient have Health Care Power of Facility Service Associate? No Healthcare Agents on File Name Relationship Healthcare Agent [facility] Communication Carolyn Ballard Adult Child Health Care Agent Care Teams Dean Of Boys Relationship Specialty Start Date End Date Brian Domínguez MD [address] [place] [address] PCP - General Family Medicine 07/16/17 documented as of this encounter
--- OUTSIDE RECORDS SUMMARY | 2023-05-17 12:19 | External Medical Summary | Summary of Care ---
Author Name Unknown Organization [facility] Address [address] [place] [address] Phone [phone] Care Team Providers Care Property Management Coordinator Name Role Phone Brian Domínguez MD Primary Care Provider [phone]- [phone] Reason for Visit * Reason Onset Date Comments Information 12/20/2022 Encounter Details Date Type Department Care Team Description 12/20/2022 Telephone [facility] [place] [address] [place] [address] Services, Scheduling [address] [place] [address] Information Allergies Active Allergy Reactions Severity Noted [...] Active venlafaxine XR (EFFEXOR XR) 150 MG [id number]:Dep ression Take 1 Cap by mouth daily. [...] 0 11/18/2017 Active Blood Glucose Monitoring Suppl (Rem[employer] Systems VERIO) w/Device KIT Use as directed. Use as directed. 1 Kit 0 10/31/2018 Active Spacer/Aero-Holding Chambers WISAM Use with inhaler. Wheezing/bronchitis . 1 Device 0 04/08/2019 Active OneTouch [employer] Lancets 33G MISC USE UP TO FOUR [...] 30 Tablet 5 03/12/2022 Active UltiCare Pen [place] 31G X 5 MM (Insulin Pen Needle) USE ONE NEEDLE TWICE DAILY 200 Each 3 04/03/2022 Active Insulin Glargine Solostar 100 UNIT/ML Subcutaneous Solution Pen-injector (Basaglar KwikPen)Indications :Type 2 diabetes mellitus with diabetic neuropathy, with long-term current use of insulin ([facility]) Inject 30 units under the skin twice daily 45 mL 3 04/16/2022 Active Insulin Glargine Solostar 100 UNIT/ML Subcutaneous Solution Pen-injector (Basaglar KwikPen)Indications :Type 2 diabetes mellitus with diabetic neuropathy, with long-term current use of insulin ([facility]) Inject 30 units under the skin twice [...] Respimat 2.5 MCG/ACT Inhalation Aerosol Solution (Tiotropium [employer] Mdl Monohydrate) Inhale by mouth 2 Puffs in the morning. 4 g 3 04/25/2022 Active Estradiol 0.1 MG/GM Vaginal Cream Administer into the vagina 1 g in the morning. 42.5 g 12 05/07/2022 Active OneTouch Verio In Vitro Strip (Glucose Blood)Indications:T ype 2 diabetes mellitus with diabetic neuropathy, with long-term current use of insulin ([facility]) USE TO CHECK BLOOD SUGAR THREE TIMES A DAY 300 Strip 1 05/11/2022 Active Torsemide 20 MG Oral Tablet (Demadex)Indication s:Atherosclerotic heart disease of [place] coronary artery with other forms of angina pectoris (HCC),Hypertensive heart disease with chronic diastolic congestive heart failure ([facility]) TAKE 1 TABLET BY MOUTH EVERY MORNING. MAY TAKE 1 ADDITIONAL TABLET NEEDED FOR SWELLING. 90 Tablet 0 05/13/2022 Active Diclofenac Sodium 1 % External Gel (Voltaren) Apply topically to affected area 2 times a day. 150 g 3 06/05/2022 Active Vitamin D (Ergocalciferol) 1.25 MG (99532 UT) Oral Capsule (Drisdol)Indication s:Vitamin D deficiency [...] DAILY 60 Capsule 5 08/22/2022 Active Nystatin 018286 UNIT/ML Mouth/Throat Suspension Swish and swallow 5 [...] is giving this. 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 Anxiety 08/05/2017 Cdazwqj-Qgcgp-Tbnxw disease 06/27/2015 Last Assessment & Plan: Frequent [...] 10/31/201008/08 Acute coronary syndrome 10/30/2010 01/22/20 14 CALVIN Research Other*[id number] 02/02/2010 04/18/2014 Overview: [place] Registry, Dr Joel Kwon PI Obesity, morbid [...] doppler & holly mobile imaging [facility] faxed order for venous doppler & pt ins/demo to [phone], they don't do holly, claim [phone] Call to [facility] faxed holly order and pt ins/demo to [phone], [facility] doesn't do ultrasounds documented in this encounter Plan of Treatment Upcoming Encounters Date Type Specialty Care Team Description 12/27/2022 Cardiac Studies Cardiac Studies 12/30/[address] [address] 01/13/2023 Office Visit Cardiology Sobia Brewster PA-C [address] [place] [address] 01/14/2023 Office Visit Gynecology Urology Nir Landa MD [address] [place] [address] Nurse Yury Fox [address] [place] [address] 01/20/2023 Telemedicine [facility]ins [facility]C [address] [facility] [place] [address] Beverly Lozoya, [facility] [address] [place] [id number] 01/22/2023 Office Visit Infectious Disease Vidya Fabian MD [address] [place] [address] 04/09/2023 Office Visit Urology Alfredo Panda MD [address] [place] [address] 04/28/2023 Office Visit Family Medicine Brian Domínguez MD [address] [place] [address] 05/09/2023 Office Visit Gastroenterology Wendy Frias, DO [address] [place] [address] Scheduled Procedures Name Priority Associated Diagnoses Date/Ti [...] Additional history exists CKD PHOS USE SMARTSET 53082 10/24/202310/05, 02/18/2022, 02/17/2022, Additional history exists TSH 10/24/2023 10/23/2022, 02/05, 09/24/2021, Additional history exists CKD HGB USE SMARTSET 88503 11/22/202311/21, 11/21/2022, 04/25/2022, Additional history exists Colonoscopy [...] this encounter Medical Devices Implanted Type Area Center Consultant Device Identifier Shelf Expiration Date Model / Serial / Lot Sut Steel 6 [id number] - [id number] Implanted:Qty: 1 on 02/15/2011 at OR [facility] [place] N/A: Chest DO NOT USE 07/21/2015 [id number] / / [id number] documented as of this encounter Advance Directives Documents on File Type Date Recorded Patient Cell Changer 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 Question Answer Comments Discussion of Advance Directives occurred with: Patient Does the patient have a Living Will? No Does the patient have Health Care Power of Hat Brusher Machine? No Code Status History Code Status Date [...] the patient have Health Care Power of Hat Brusher Machine? No Full Code 02/01/2010 4:02 PM 02/02/2010 4:09 PM This order reflects the patients wishes and were consensually agreed upon. Question Answer Comments Discussion of Advance Directives occurred with: Not Discussed Does the patient have a Living Will? No Does the patient have Health Care Power of Hat Brusher Machine? No Healthcare Agents on File Name Relationship Healthcare Agent [facility] Communication Carolyn Ballard Adult Child Health Care Agent Care Teams Property Management Coordinator Relationship Specialty Start Date End Date Brian Domínguez MD [address] [place] [address] PCP - General Family Medicine 07/16/17 documented as of this encounter
--- OUTSIDE RECORDS SUMMARY | 2023-05-17 12:19 | External Medical Summary | Summary of Care ---
Author Name Unknown Organization [facility] Address [address] [place] [address] Phone [phone] Care Team Providers Care Hot Metal Mixer Operator Name Role Phone Brian Domínguez MD Primary Care Provider [phone]- [phone] Encounter Details Date Type Department Care Team Description 12/19/2022 Drop Hammer Set Up OperatorSenior Staff [facility]ant[facility]ace[facility] [address] [place] [address] Jessica Sanders, KAT [address] [place] [address] Chronic liver disease and cirrhosis (HCC)* Allergies Active Allergy Reactions Severity Noted Date Comments Propoxyphene Hcl Rash Low 10/29/2010 Fentanyl Diarrhea Low 04/26/2010 anxiety Methocarbamol Medium 10/05/2020 Other reaction(s): Delirium Methocarbamol Low 04/15/2007 Zolpidem Low 10/05/2020 Other reaction(s): Confusion documented as of this encounter (statuses as of 12/19/2022) Medications Medication Sig Dispensed Refills Start Date End Date Status ARIPiprazole (ABILIFY) 2 MG Tablet Take 1 Tablet by mouth in the morning. 0 6 Active venlafaxine XR (EFFEXOR XR) 150 MG [id number]:Dep ression Take 1 Cap by mouth daily. With food. 30 Cap 5 7 Active Additional Information Patient taking differently: 225 mgOral Daily(AM), With food.,Indications: Takes 225 mg total every morning with food (150 mg tab + 75 mg tab), Reported on 06/24/2022 Blood Glucose Monitoring Suppl ([employer]-Zappedy GLUCOMETER) w/Device KITIndications:Unco ntrolled type 2 diabetes mellitus without complication, without long-term current use of insulin Use as directed. Use as directed once daily 1 Kit 0 8 Active Blood Glucose Monitoring Suppl (Blu Wireless TechnologyIO) w/Device KIT Use as directed. Use as [...] every morning. 30 Tablet 5 2 Active UltiCare Pen [place] 31G X 5 MM (Insulin Pen Needle) USE ONE NEEDLE TWICE DAILY 200 Each 3 2 Active Insulin Glargine Solostar 100 UNIT/ML Subcutaneous Solution Pen-injector (Albiorexaglar KwikPen)Indications :Type 2 diabetes mellitus with diabetic neuropathy, with long-term current use of insulin ([facility]) Inject 30 units under the skin twice daily 45 mL 3 2 Active Insulin Glargine Solostar 100 UNIT/ML Subcutaneous Solution Pen-injector (Albiorexaglar KwikPen)Indications :Type 2 diabetes mellitus with diabetic neuropathy, with long-term current use of insulin ([facility]) Inject 30 units under the [...] Respimat 2.5 MCG/ACT Inhalation Aerosol Solution (Tiotropium [place] Monohydrate) Inhale by mouth 2 Puffs in the morning. 4 g 3 2 Active Estradiol 0.1 MG/GM Vaginal Cream Administer into the vagina 1 g in the morning. 42.5 g 12 2 Active OneTouch Verio In Vitro Strip (Glucose Blood)Indications:T ype 2 diabetes mellitus with diabetic neuropathy, with long-term current use of insulin ([facility]) USE TO CHECK BLOOD SUGAR THREE TIMES A DAY 300 Strip 1 2 Active Torsemide 20 MG Oral Tablet (Demadex)Indication s:Atherosclerotic heart disease of [place] coronary artery with other forms of angina pectoris (HCC),Hypertensive heart disease with chronic diastolic congestive heart failure (HCC) TAKE 1 TABLET BY MOUTH EVERY MORNING. MAY TAKE 1 ADDITIONAL TABLET NEEDED FOR SWELLING. 90 Tablet 0 2 Active Diclofenac Sodium 1 % External Gel (Voltaren) Apply topically to affected area 2 times a day. 150 g 3 2 Active Vitamin D (Ergocalciferol) 1.25 MG (18955 UT) Oral Capsule (Drisdol)Indication s:Vitamin D deficiency TAKE ONE CAPSULE BY MOUTH WEEKLY 12 Capsule 3 2 Active Montelukast Sodium 10 MG Oral Tablet (Singulair)Indicati ons:Nasal sinus congestion,PND (post-nasal drip) TAKE 1 TABLET BY MOUTH ONCE DAILY 90 Tablet 1 2 Active Benzonatate 100 MG Oral Capsule (Tessalon Perles) TAKE ONE CAPSULE BY MOUTH THREE TIMES DAILY NEEDED for cough. do not cut, crush or chew 50 Capsule 0 3 Active EchoSignS Disposable Nebulizer Kit Use as directed 1 [...] DAILY 60 Capsule 5 3 Active Nystatin 690407 UNIT/ML Mouth/Throat Suspension Swish and swallow 5 [...] TWICE DAILY 60 Tablet 0 3 Active Morphine Sulfate ER 15 MG Oral Tablet Extended Release (Ms Contin)Indications: Lumbar spondylosis Take 1 Tablet by mouth at bedtime as needed for Pain, Severe. 30 Tablet 0 3 Active oxyCODONE HCl 5 MG Oral Tablet (Oxy IR)Indications:Lumb ar spondylosis Take 1 Tablet by mouth every 8 hours as needed (pain). 60 Tablet 0 3 Active clonazePAM 0.5 MG Oral Tablet (KlonoPIN)Indicatio ns:Bipolar I disorder, most recent episode depressed, moderate (HCC) TAKE ONE TABLET BY MOUTH THREE TIMES DAILY 90 Tablet 0 3 Active Pantoprazole Sodium 40 MG Oral Tablet Delayed Release (Protonix)Indicatio ns:Gastroesophageal reflux disease without esophagitis TAKE ONE TABLET BY MOUTH IN THE MORNING AND ONE TABLET IN THE EVENING 60 Tablet 5 3 Active Potassium Chloride Mag ER 20 MEQ Oral Tablet Extended Release TAKE ONE TABLET BY MOUTH IN THE MORNING. to use when taking additional torsemide 30 Tablet 0 3 Active Dicyclomine HCl 10 MG Oral [...] other medications 90 Tablet 3 3 Active Cefdinir 300 MG Oral Capsule (Omnicef)Indication s:UTI symptoms Take 1 Capsule by mouth in the morning and 1 Capsule before bedtime. Do all this for 10 days. For 10 days.. 20 Capsule 0 3 12/24/19 23 Active Xifaxan 550 MG Oral Tablet (rifAXIMin)Indicati ons:GONZALEZ (nonalcoholic steatohepatitis),Ch ronic liver disease and cirrhosis (HCC),Hepatic encephalopathy (HCC) TAKE 1 TABLET BY MOUTH TWICE DAILY 60 Tablet 5 3 Active Polyethylene Glycol 3350 17 GM/SCOOP Oral Powder (Miralax) USE 1/2 OF BOTTLE IN 32 OUNCES OF [place] THE DAY BEFORE AND THE DAY OF PROCEDURE DIRECTED 238 g 0 2 12/20/19 Discontinu ed(Patient preference /discontin uation) Phenazopyridine HCl 200 MG Oral Tablet (Pyridium) Take 1 Tablet by mouth 3 times a day as needed for Pain, Moderate. After meals for pain with urination 6 Tablet 2 3 12/20/19 Discontinu ed(Patient preference /discontin uation) Hospital, Clinic, or Other Facility Administered Medication [...] as of this encounter (statuses as of 12/19/2022) Active Problems Problem Noted Date Hypertensive heart and kidne y disease with chronic diastolic congestive heart failure and stage 3a chronic kidney disease 12/28/2021 Last Assessment & Plan: Euvolemic, BP stable EF 55% 09/25 GFR 69 02/25 -Continue Torsemide 20 mg BID, Spironolactone 25 mg BID, Tropol XL 50 mg daily Atherosclerotic heart diseas e of [place] coronary artery with other forms of angina pectoris 11/15/2021 Last Assessment & Plan: Stable. No angina -continue toprol, ASA and statin Seasonal allergies 11/15/2021 Recurrent UTI 10/07/2021 Last Assessment & Plan: Followed by urology Pt is supposed to be on methenamine--will need to clarify with dgt that she is giving this. 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 Anxiety 08/05/2017 Nrikhub-Uaqhe-Gralq disease 06/27/2015 Last Assessment & Plan: Frequent [...] as of this encounter (statuses as of 12/19/2022) Resolved Problems Problem Noted Date Resolved Date [...] 05/06/2018 019 Atherosclerotic heart diseas e of [place] coronary artery with other forms of angina [...] 10/31/201008/08 Acute coronary syndrome 10/30/2010 01/22/20 14 [employer] Research Other*[id number] 02/02/2010 04/18/2014 Overview: [place] Registry, Dr Joel Kwon PI Obesity, morbid [...] as of this encounter (statuses as of 12/19/2022) Immunizations Name Administration Dates Next Due COVID-19 [...] as of this encounter Progress Notes * Jessica Sanders RN - 12/19/2022 11:23 AM EDT Drop Hammer Set Up Operator Progress Note: Date: 12/19/22 Assgned Patient Tier: 3 Connected with patient's daughter Carolyn (says she is a nurse) who helps manage her mother's care via phone. Verified patient name/. Advised patient that call is being recorded for quality and training purposes. Assessment: Pt. noted the following: Per Carolyn, patient alert & oriented, has a hard time keeping track ofdetails of her care Patient has SOB with exertion at times, has a chronic cough, not coughing anything up Patient denies chest pain, has chronic swelling to her LE, 1-2+ edema Weighing daily, weight has been around 226 lbs, patient has a hard time standing on scale at times. Will send in a [facility] scale to help monitor her weights Patient has a fair appetite, bowels moving, has urinary incontinence at times Discussed the importance of providing complete alcides care after each incontinence episode Has chronic pain to all her joints, on chronic narcotics as ordered by Dr. Domínguez No skin issues, sleeping okay at night Blood sugars running 110-160, last A1C on 10/23/22 was 6.3 Patient lives alone in an apartment Has 24/7 caregivers thru waiver, 3 different agencies involved to cover the hours needed Patient uses a walker for short distances, also uses a wheelchair & scooter Needs help with ADL's, daughter or caregivers provide transportation Patient's daughter Carolyn manages her medications Confirmed patient has a telemed appointment with BRINDA Ley tomorrow BRINDA Ley has been managing patient's care for several months, Dr. Domínguez manages her pain medications Patient prone to UTI's, now has standing orders for urine testing Confirmed upcoming follow up appointments with Carolyn Leon refusing a [facility] visit at this time Did you receive an alert for an annual wellness visit? No Is this call for a hospital, jail or rehab facility discharge to home? No Medication Reconciliation: Medication Reconciliation completed: yes Review of Current goals: Discussed the following patient-centered CM goals with the patient during this discussion: -GI: Patient will have GI issues addressed -Status: On Track patient has urinary incontinence at times, frequent UTI's, encouraged fluids, call CM with signs of UTI. -HEART FAILURE: Achieve successful management of heart failure. -Status: On Track doing daily weight, followed by cardiology. -SAFETY: Prevent falls or injuries -Status: On Track patient using walker, wheelchair, scooter, 27/01 caregivers, no report of recent falls. COPD Patient: No CHF Patient: YES Scale: YES, Current Weight: 252lbs, Reinforced fluid restriction and low sodium diet. , Swelling: has chronic LE edema per daughter CM Plan: Reviewed 3 Red Flags with patient. Advised to call CM with any of the following: Red Flag 1: increased SOB, cough, Red Flag 2: fever, chills, increased LE/abdominal edema, weight gain of 3 lbs in 24 hours or Red Flag 3: pain/burning with urination, confusion, foul smelling urine, , Patient will contact their provider regarding: signs of UTI. and RPM ordered for patient: [facility] Bluetooth Scale Remote Patient Monitoring: [facility] Scale Offered. Patient Agreeable. Will initiate process to have device sent/installed. Plan for Future Contacts: Plan to follow up next week to check progress on the following goals/needs as above. Planned contacts from the following parties will occur this week: PCP office visit and Specialty Visit as additional contacts per workflow. Advancement/Closure Plan: Keep patient at current Tier with reassessment per workflow. Patient provided CM contact information and encouraged to call with any changes in condition. SNP Member? No PCP Notified of enrollment in CM/HM program: Yes Is Provider in agreement with POC? Yes Jessica Sanders, RN Outpatient Case Management documented in this encounter Plan of Treatment Upcoming Encounters Date Type Specialty Care Team Description 12/20/2022 Telemedicine [facility] Lashay Blevins PA-C [address] [place] [address] Beverly Lozoya [address] [place] [address] 12/27/2022 Cardiac Studies Cardiac Studies 12/30/2022 Telemedicine [facility] [address] [place], [place] [id number] 01/13/2023 Office Visit Cardiology Sobia Brewster PAAttilaC [address] [place] [address] 01/14/2023 Office Visit Gynecology Urology Nir Landa MD [address] [place] [address] Nurse Yury Fox [address] [place] [address] 01/22/2023 Office Visit Infectious Disease Vidya Fabian MD [address] [place] [address] 04/09/2023 Office Visit Urology Alfredo Panda MD [address] [place] [address] 04/28/2023 Office Visit Family Medicine Brian Domínguez MD [address] [place] [address] 05/09/2023 Office Visit Gastroenterology Wendy Frias, DO [address] [place] [address] Scheduled Procedures Name Priority Associated Diagnoses Date/Ti [...] Additional history exists CKD PHOS USE SMARTSET 40586 10/24/202310/05, 02/18/2022, 02/17/2022, Additional history exists TSH 10/24/2023 10/23/2022, 02/05, 09/24/2021, Additional history exists CKD HGB USE SMARTSET 36407 11/22/202311/21, 11/21/2022, 04/25/2022, Additional history exists Colonoscopy [...] this encounter Medical Devices Implanted Type Area Pullman Car Repairer Device Identifier Shelf Expiration Date Model / Serial / Lot Sut Steel 6 M654g - [id number] Implanted:Q[place] 1 on [place] [facility] [place] Chest DO NOT USE 07/21/2015 [id number] / / [id number] documented as of this encounter Visit Diagnoses Diagnosis Chronic liver disease and cirrhosis (HCC)- Primary Unspecified chronic liver disease without mention of alcohol documented in this encounter Advance Directives Documents on File Type Date Recorded Patient Packager Hand Expl anation DURAN 05/06/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 Question Answer Comments Discussion of Advance Directives occurred with: Patient Does the patient have a Living Will? No Does the patient have Health Care Power of Inventory Control Clerk? No Code Status History Code Status [...] the patient have Health Care Power of Inventory Control Clerk? No Full Code 02/01/2010 4:02 PM 02/02/2010 4:09 PM This order reflects the patients wishes and were consensually agreed upon. Question Answer Comments Discussion of Advance Directives occurred with: Not Discussed Does the patient have a Living Will? No Does the patient have Health Care Power of Inventory Control Clerk? No Healthcare Agents on File Name Relationship Healthcare Agent [facility] Communication Carolyn Ballard Adult Child Health Care Agent Care Teams Hot Metal Mixer Operator Relationship Specialty Start Date End Date Brian Domínguez MD [address] [place] [address] PCP - General Family Medicine 07/16/17 documented as of this encounter
--- OUTSIDE RECORDS SUMMARY | 2023-05-17 12:19 | External Medical Summary | Summary of Care ---
Author Name Unknown Organization [facility] Address [address] [place] [address] Phone [phone] Care Team Providers Care Insole Toe Snipping Machine Operator Name Role Phone Brian Domínguez MD Primary Care Provider [phone]- [phone] Reason for Visit * Reason Onset Date Comments Information 12/20/2022 Encounter Details Date Type Department Care Team Description 12/20/2022 Telephone [facility] [place] [address] [place] [address] Services, Scheduling [address] [place] [address] Information Allergies Active Allergy Reactions Severity Noted [...] Active venlafaxine XR (EFFEXOR XR) 150 MG [id number]:Dep ression Take 1 Cap by mouth daily. [...] 0 11/18/2017 Active Blood Glucose Monitoring Suppl (Coravin VERIO) w/Device KIT Use as directed. Use as directed. 1 Kit 0 10/31/2018 Active Spacer/Aero-Holding Chambers WISAM Use with inhaler. Wheezing/bronchitis . 1 Device 0 04/08/2019 Active OneTouch DelSwift Shift Lancets 33G MISC USE UP TO FOUR [...] 30 Tablet 5 03/12/2022 Active UltiCare Pen [place] 31G X 5 MM (Insulin Pen Needle) USE ONE NEEDLE TWICE DAILY 200 Each 3 04/03/2022 Active Insulin Glargine Solostar 100 UNIT/ML Subcutaneous Solution Pen-injector (Basaglar KwikPen)Indications :Type 2 diabetes mellitus with diabetic neuropathy, with long-term current use of insulin ([facility]) Inject 30 units under the skin twice daily 45 mL 3 04/16/2022 Active Insulin Glargine Solostar 100 UNIT/ML Subcutaneous Solution Pen-injector (Basaglar KwikPen)Indications :Type 2 diabetes mellitus with diabetic neuropathy, with long-term current use of insulin ([facility]) Inject 30 units under the skin twice [...] Respimat 2.5 MCG/ACT Inhalation Aerosol Solution (Tiotropium [place] Monohydrate) Inhale by mouth 2 Puffs in the morning. 4 g 3 04/25/2022 Active Estradiol 0.1 MG/GM Vaginal Cream Administer into the vagina 1 g in the morning. 42.5 g 12 05/07/2022 Active OneTouch Verio In Vitro Strip (Glucose Blood)Indications:T ype 2 diabetes mellitus with diabetic neuropathy, with long-term current use of insulin ([facility]) USE TO CHECK BLOOD SUGAR THREE TIMES A DAY 300 Strip 1 05/11/2022 Active Torsemide 20 MG Oral Tablet (Demadex)Indication s:Atherosclerotic heart disease of [place] coronary artery with other forms of angina pectoris (HCC),Hypertensive heart disease with chronic diastolic congestive heart failure ([facility]) TAKE 1 TABLET BY MOUTH EVERY MORNING. MAY TAKE 1 ADDITIONAL TABLET NEEDED FOR SWELLING. 90 Tablet 0 05/13/2022 Active Diclofenac Sodium 1 % External Gel (Voltaren) Apply topically to affected area 2 times a day. 150 g 3 06/05/2022 Active Vitamin D (Ergocalciferol) 1.25 MG (16084 UT) Oral Capsule (Drisdol)Indication s:Vitamin D deficiency [...] DAILY 60 Capsule 5 08/22/2022 Active Nystatin 466425 UNIT/ML Mouth/Throat Suspension Swish and swallow 5 [...] mg daily Atherosclerotic heart diseas e of [place] coronary artery with other forms of angina pectoris 11/15/2021 Last Assessment & Plan: Stable. No angina -continue toprol, ASA and statin Seasonal allergies 11/15/2021 Recurrent UTI 10/07/2021 Last Assessment & Plan: Followed by urology Pt is supposed to be on methenamine--will need to clarify with dgt that she is giving this. 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 Anxiety 08/05/2017 Eswuulg-Zkwjv-Bzbpz disease 06/27/2015 Last Assessment & Plan: Frequent [...] 05/06/2018 019 Atherosclerotic heart diseas e of [place] coronary artery with other forms of angina [...] 10/31/201008/08 Acute coronary syndrome 10/30/2010 01/22/20 14 [place] Research Other*[id number] 02/02/2010 04/18/2014 Overview: [place] [facility], Dr Joel Kwon PI Obesity, morbid [...] & [facility] Call to [facility] and faxed order for venous doppler & pt ins/demo to [phone], they don't do holly Call to [facility] faxed holly order and pt ins/demo to [phone], [facility] doesn't do ultrasounds documented in this encounter Plan of Treatment Upcoming Encounters Date Type Specialty Care Team Description 12/27/2022 Cardiac Studies Cardiac Studies 12/30/[address] [address] 01/13/2023 Office Visit Cardiology Sobia Brewster PA-C [address] [place] [address] 01/14/2023 Office Visit Gynecology Urology Nir Landa MD [address] [place] [address] Nurse Yury Fox [address] [place] [address] 01/20/2023 Telemedicine [facility] Lashay Blevins PA-C [address] [place] [address] Beverly Lozoya, [address] [place] [id number] 01/22/2023 Office Visit Infectious Disease Vidya Fabian MD [address] [place] [address] 04/09/2023 Office Visit Urology Alfredo Panda MD [address] [place] [address] 04/28/2023 Office Visit Family Medicine Brian Domínguez MD [address], [place] [phone] 05/09/2023 Office Visit Gastroenterology Wendy Frias, DO [address] [place] [address] Scheduled Procedures Name Priority Associated [...] Additional history exists CKD PHOS USE SMARTSET 81027 10/24/202310/05, 02/18/2022, 02/17/2022, Additional history exists TSH 10/24/2023 10/23/2022, 02/05, 09/24/2021, Additional history exists CKD HGB USE SMARTSET 05497 11/22/202311/21, 11/21/2022, 04/25/2022, Additional history exists Colonoscopy [...] this encounter Medical Devices Implanted Type Area Slide Forming Machine Operator Device Identifier Shelf Expiration Date Model / Serial / Lot Sut Bob 6 [id number] - [id number] Implanted:Qty: 1 on 02/15/[address] [facility] N/A: Chest DO NOT USE 07/21/2015 [id number] / / [id number] documented as of this encounter Advance Directives Documents on File Type Date Recorded Patient Storage Battery Inspector And Tester Expl anation POLST 05/06/2018 POLST Latest [...] the patient have Health Care Power of Cotton Inspector? No Code Status History Code Status [...] the patient have Health Care Power of Cotton Inspector? No Full Code 02/01/2010 4:02 PM 02/02/2010 4:09 PM This order reflects the patients wishes and were consensually agreed upon. Question Answer Comments Discussion of Advance Directives occurred with: Not Discussed Does the patient have a Living Will? No Does the patient have Health Care Power of Cotton Inspector? No Healthcare Agents on File Name Relationship Healthcare Agent [facility] Communication Carolyn Ballard Adult Child Health Care Agent Care Teams Insole Toe Snipping Machine Operator Relationship Specialty Start Date End Date Brian Domínguez MD [address] [place] [address] PCP - General Family Medicine 07/16/17 documented as of this encounter
--- OUTSIDE RECORDS SUMMARY | 2023-05-17 12:19 | External Medical Summary | Summary of Care ---
Author Name Unknown Organization [facility] Address [address] [place] [address] Phone [phone] Care Team Providers Care Flooring Salesperson Name Role Phone Brian Domínguez MD Primary Care Provider [phone]- [phone] Reason for Visit * Reason Onset Date Comments Information 12/20/2022 Encounter Details Date Type Department Care Team Description 12/20/2022 Telephone [facility] [place] [facility] [address] [place] [address] Services, Scheduling [address] [place] [address] Information Allergies Active Allergy Reactions Severity Noted [...] Active venlafaxine XR (EFFEXOR XR) 150 MG [id number]:Dep ression Take 1 Cap by mouth daily. [...] 0 11/18/2017 Active Blood Glucose Monitoring Suppl ([employer] VERIO) w/Device KIT Use as directed. Use as directed. 1 Kit 0 10/31/2018 Active Spacer/Aero-Holding Chambers WISAM Use with inhaler. Wheezing/bronchitis . 1 Device 0 04/08/2019 Active OneTouch DelGenetix Fusion Lancets 33G MISC USE UP TO FOUR [...] 30 Tablet 5 03/12/2022 Active UltiCare Pen [place] 31G X 5 MM (Insulin Pen Needle) USE ONE NEEDLE TWICE DAILY 200 Each 3 04/03/2022 Active Insulin Glargine Solostar 100 UNIT/ML Subcutaneous Solution Pen-injector (Basaglar KwikPen)Indications :Type 2 diabetes mellitus with diabetic neuropathy, with long-term current use of insulin ([facility]) Inject 30 units under the skin twice daily 45 mL 3 04/16/2022 Active Insulin Glargine Solostar 100 UNIT/ML Subcutaneous Solution Pen-injector (Basaglar KwikPen)Indications :Type 2 diabetes mellitus with diabetic neuropathy, with long-term current use of insulin ([facility]) Inject 30 units under the skin [...] long-term current use of insulin ([facility]) USE TO CHECK BLOOD SUGAR THREE TIMES A DAY 300 Strip 1 05/11/2022 Active Torsemide 20 MG Oral Tablet (Demadex)Indication s:Atherosclerotic heart disease of [place] coronary artery with other forms of angina pectoris (HCC),Hypertensive heart disease with chronic diastolic congestive heart failure ([facility]) TAKE 1 TABLET BY MOUTH EVERY MORNING. MAY TAKE 1 ADDITIONAL TABLET NEEDED FOR SWELLING. 90 Tablet 0 05/13/2022 Active Diclofenac Sodium 1 % External Gel (Voltaren) Apply topically to affected area 2 times a day. 150 g 3 06/05/2022 Active Vitamin D (Ergocalciferol) 1.25 MG (31233 UT) Oral Capsule (Drisdol)Indication s:Vitamin D deficiency [...] DAILY 60 Capsule 5 08/22/2022 Active Nystatin 187430 UNIT/ML Mouth/Throat Suspension Swish and swallow 5 [...] Atherosclerotic heart diseas e of [place] coronary artery with other forms of angina pectoris 11/15/2021 Last Assessment & Plan: Stable. No angina -continue toprol, ASA and statin Seasonal allergies 11/15/2021 Recurrent UTI 10/07/2021 Last Assessment & Plan: Followed by urology Pt is supposed to be on methenamine--will need to clarify with dgt that she is giving this. 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 Anxiety 08/05/2017 Yaguocw-Txxmh-Smtah disease 06/27/2015 Last Assessment & Plan: Frequent [...] Atherosclerotic heart diseas e of [place] coronary artery with other forms of angina [...] 10/31/201008/08 Acute coronary syndrome 10/30/2010 01/22/20 14 [place] Research Other*[id number] 02/02/2010 04/18/2014 Overview: [place] [facility], Dr Joel Kwon PI Obesity, morbid [...] they don't do holly Call to [facility] and both orders faxed to them at [phone] documented in this encounter Plan of Treatment Upcoming Encounters Date Type Specialty Care Team Description 12/27/2022 Cardiac Studies Cardiac Studies 12/30/2022 Telemedicine Pharmacy [facility] [address] [place] [address] 01/13/2023 Office Visit Cardiology Sobia Brewster PA-C [address] [place] [address] 01/14/2023 Office Visit Gynecology Urology Nir Landa MD [address] [place] [address] Nurse Yury Fox [address] [place] [address] 01/20/2023 Telemedicine [facility] Lashay Blevins PA-C [address] [place] [address] Beverly Lozoya, Community [facility] Grinder Operator External Tool [address] [place] [address] [place] [address] 01/22/2023 Office Visit Infectious Disease Vidya Fabian MD [address] [place] [address] 04/09/2023 Office Visit Urology Alfredo Panda MD [address] [place] [id number] 04/28/2023 Office Visit Family Medicine Brian [facility] [address] [facility] [address] 05/09/2023 Office Visit Gastroenterology Wendy Frias, DO [address] [place] [address] Scheduled Procedures Name Priority Associated Diagnoses Date/Ti [...] Additional history exists CKD PHOS USE SMARTSET 69554 10/24/202310/05, 02/18/2022, 02/17/2022, Additional history exists TSH 10/24/2023 10/23/2022, 02/05, 09/24/2021, Additional history exists CKD HGB USE SMARTSET 68550 11/22/202311/21, 11/21/2022, 04/25/2022, Additional history exists Colonoscopy [...] this encounter Medical Devices Implanted Type Area Reconsignment Clerk Device Identifier Shelf Expiration Date Model / Serial / Lot Jenna Rojas 6 [id number] - [id number] Implanted:Qty: 1 on 02[place]15[place]2011 [place] [facility] [place]: Chest DO NOT USE 07/21/2015 [id number] / / [id number] documented as of this encounter Advance Directives Documents on File Type Date Recorded Patient Premium Representative Expl 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 Question Answer Comments Discussion of Advance Directives occurred with: Patient Does the patient have a Living Will? No Does the patient have Health Care Power of Early Childhood Specialist? No Code Status History Code Status [...] the patient have Health Care Power of Early Childhood Specialist? No Full Code 02/01/2010 4:02 PM 02/02/2010 4:09 PM This order reflects the patients wishes and were consensually agreed upon. Question Answer Comments Discussion of Advance Directives occurred with: Not Discussed Does the patient have a Living Will? No Does the patient have Health Care Power of Early Childhood Specialist? No Healthcare Agents on File Name Relationship [facility] Communication Carolyn Elio Adult Child Health Care Agent Care Teams Flooring Salesperson Relationship Specialty Start Date End Date Brian Domínguez MD [address] [place] [address] PCP - General Family Medicine 07/16/17 documented as of this encounter
--- OUTSIDE RECORDS SUMMARY | 2023-05-17 12:19 | External Medical Summary | Summary of Care ---
Author Name Unknown Organization [facility] Address [address] [place] [address] Phone [phone] Care Team Providers Care Geosciences Associate Professor Name Role Phone Brian Domínguez MD Primary Care Provider [phone] Reason for Visit * Reason Comments [facility]: Telehealth Encounter Details Date Type Department Care Team Description 12/20/2022 Telemedicine [facility], [place] [address] [place] [address] Lashay Blevins PA-C [address] [place] [address] Beverly Lozoya [address] [place] [address] 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)*; Type 2 diabetes mellitus with diabetic neuropathy, with long-term current use of insulin (HCC); Recurrent UTI; UTI symptoms; Bilateral lower extremity edema Allergies Active Allergy Reactions Severity Noted [...] Active venlafaxine XR (EFFEXOR XR) 150 MG [id number]:Dep ression Take 1 Cap by mouth daily. With food. 30 Cap 5 7 Active Additional Information Patient taking differently: 225 mgOral Daily(AM), With food.,Indications: Takes 225 mg total every morning with food (150 mg tab + 75 mg tab), Reported on 06/24/2022 Blood Glucose Monitoring Suppl (5 Minutes-BlackBridge GLUCOMETER) w/Device KITIndications:Unco ntrolled type 2 diabetes mellitus without complication, without long-term current use of insulin Use as directed. Use as directed once daily 1 Kit 0 8 Active Blood Glucose Monitoring Suppl (TradeBriefs VERIO) w/Device KIT Use as directed. Use [...] 30 Tablet 5 2 Active UltiCare Pen [place] 31G X 5 MM (Insulin Pen Needle) USE ONE NEEDLE TWICE DAILY 200 Each 3 2 Active Insulin Glargine Solostar 100 UNIT/ML Subcutaneous Solution Pen-injector (Ninuaaglar KwikPen)Indications :Type 2 diabetes mellitus with diabetic neuropathy, with long-term current use of insulin ([facility]) Inject 30 units under the skin twice daily 45 mL 3 2 Active Insulin Glargine Solostar 100 UNIT/ML Subcutaneous Solution Pen-injector (Ninuaaglar KwikPen)Indications :Type 2 diabetes mellitus with diabetic [...] Respimat 2.5 MCG/ACT Inhalation Aerosol Solution (Tiotropium Superior Monohydrate) Inhale by mouth 2 Puffs in [...] Oral Tablet (Demadex)Indication s: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 20 Capsule 1 3 Active Fluconazole 150 MG Oral Tablet (Diflucan) Take 1 Tablet by mouth once for 1 dose. 1 Tablet 1 3 12/21/19 23 Active Cefdinir 300 MG Oral Capsule (Omnicef)Indication s:UTI symptoms Take 1 Capsule by mouth in the morning and 1 Capsule before bedtime. Do all this for 10 days. For 10 days.. 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 No angina -continue toprol, ASA and statin Seasonal allergies 11/15/2021 Recurrent UTI 10/07/2021 Last Assessment & Plan: Followed by urology Pt is supposed to be on methenamine--will need to clarify with dgt that she is giving this. 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 [...] 10/31/201008/08 Acute coronary syndrome 10/30/2010 01/22/20 14 [employer] Other*[id number] 02/02/2010 04/18/2014 Overview: [place] [facility], Dr Joel Kwon PI Obesity, morbid [...] Sign Reading Time Taken Comments Blood Pressure 136/80 12/20/2022 9:16 AM EDT Pulse 72 12/20/2022 9:16 AM EDT Temperature 36.5 C (97.7 F) 12/20/2022 9:16 AM ED T Respiratory Rate 16 12/20/2022 9:16 AM EDT Oxygen Saturation 95% 12/20/2022 9:16 AM EDT Inhaled Oxygen Concentration - - Weight - - Height - - Body Mass Index - - documented in this encounter Progress Notes * Beverly Lozoya [facility] Health Child Care Coordinator - 12/20/2022 9:17 AM EDT Community Health Child Care Coordinator Visit Date: 12/20/2022 Time: 9:00 AM Name: Angelina Ballard : 1950 Referral Source: Provider Source of Information: Patient and daughterCarolyn Spoken language: [place] Patient can read in [place]: Yes. Apprentice Carpenter needed: No. COVID-19 screening completed: Yes Vitals: Vital signs completed: Yes, vital signs within normal range. BP 136/80 (BP Site: Right Arm, BP Position: Sitting, BP Cuff Size: Regular) | Pulse 72 | Temp 36.5 C (97.7 F) | Resp 16 | SpO2 95% Please note - patient hasn't taken AM meds yet this AM. Condition Changes: Changes in health or social status since last visit: RANDY for return visit with [facility] provider. The patient has new concerns since last visit: Yes, patient and daughter requesting a referral for Case Management. Follows with [facility] provider Lashay Long PA-C. Daughter reports concern with trying to reach PCP last week re: patient with UTI symptoms. Message to Rishabh Triana RN [employer] truck driver to advise. Progress towards goals since last visit: maintained Patient's Goals of Care: 1. No more uti's 2. No falls 3. No hospitalizations Medications: [...] Score is 4 or more? Yes, notified Provider/Manager Women Last flowsheet values for MAHC10: Age 65+: 1 (11/27/2022 1:00 PM) Diagnosis (3 or more co-existing): 1 (11/27/2022 1:00 PM) Prior history of falls within 3 months: 1 (11/27/2022 1:00 PM) Incontinence: 1 (11/27/2022 1:00 PM) Visual impairment: 0 (11/27/2022 1:00 PM) Impaired functional mobility: 1 (11/27/2022 1:00 PM) Environmental hazards: 0 (11/27/2022 1:00 PM) Poly Pharmacy (4 or more prescriptions - any type): 1 (11/27/2022 1:00 PM) Pain affecting level of function: 0 (11/27/2022 1:00 PM) Cognitive impairment: 0 (11/27/2022 1:00 PM) Score - a score of 4 or more is considered at risk for fallin (11/27/2022 1:00 PM) Home Safety Does member identify any [...] Are there trip hazards in the home? No Are there working smoke detectors/CO2 detectors? Yes Is a health condition present or an air quality concern that an air conditioner or other coolingdevice will help? No Do stairs in the [...] the patient report needing help bathing? Yes - has caregivers to assist with PC/ADLs. Daughter lives locally and provides care to patient as well. Are there any other identified issues/needs? No. If yes specify: Plan: Reinforced patient's three red flags by the care team 1. Fever 2. Increased sob 3. Increased edema or abd distention Follow Up: Patient encouraged to call the intake phone number for all urgent but not emergent issues. Scheduled to follow up with patient in PRN. Emely Yan 12/20/2022 9:00 AM * Lashay Johnston PA-C - 12/20/2022 8:30 AM EDT [facility] Provider Telemedicine Visit Date: 12/20/2022 Time: 8:55 AM Assessment/Plan: 1. 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) Stable Getting repeat ECHO in next couple weeks Seeing Cardiology next month 2. Type 2 diabetes mellitus with diabetic neuropathy, with long-term current use of insulin (HCC) Stable 3. Recurrent UTI Standing order placed - CULTURE, URINE, QUANTITATIVE; Standing 4. UTI symptoms - CULTURE, URINE, QUANTITATIVE; Standing - Cefdinir 300 MG Oral Capsule (Omnicef); Take 1 Capsule by mouth in the morning and 1 Capsule before bedtime. For 10 days.. Dispense: 20 Capsule; Refill: 1 5. Bilateral lower extremity edema - VASC DUPLEX VENOUS LE BILAT - VASC ANKLE BRACHIAL INDICES WITHOUT PPG (PAD) Follow up plan: Will follow up in one month. Patient feeling improved and is taking Cefdinir currently. She has plans to see Urogyn and her daughter is hopeful she will keep the appointment. She hasn't been using the estrogen vaginal cream; advised to start using to help reduce UTI's. Standing order for urine culture placed. I sent a Rx for Cefdnir for them to have on hand if needed. They were advised to take a urine sample in for culture prior to starting antibiotics as she has a history of ESBL UTI. A total of 55 minutes was spent face to face via video-based telemedicine. Subjective Patient location: HOME. I was not in a hospital or clinic location. After connecting through televideo, patient was verified with two unique identifiers. Patient (or authorized legal branch sales and service representative) was then informed that this was a Telemedicine visit and being conducted confidentially over secure lines. Methods to assure confidentiality were taken. Patient acknowledged consent and understanding of privacy and security of the Telemedicine visit. The patient agreed to participate. Reason for Visit: Follow-Up Current Concerns: Angelina Ballard is a 72 year old female seen today for a [facility] Telemedicine Provider Visit. Date of last known acute care visit: 12/13/22 at Reason for last known acute care visit: [...] has had recurrent symptoms of chest congestion, and cough with green sputum. She has been treated with steroids and antibiotics multiple times. Multiple negative CXR's. She recently saw Pulmonology.PFT's and walking test was not suggestive of chronic lung disease. Today's concerns are: History obtained mostly by her daughter Carolyn. Angelina started having UTI symptoms again last week. She was evaluated at urgent care and started on Cefdinir. She feels symptoms are improving and she is still taking the antibiotics now. She has some days where she has increased urinary frequency and urgency. Her daughter states she had david blood with clots noted in the urine hat last week. Unclear if it was vaginal or from urine. She states her labia was excoriated and external genitalia lookedirritated. Angelina states she has been itchy down there. She has not been using the vaginal estrogen cream. She is scheduled to see Urogyn next week. She had a total hysterectomy in the past. No changes in BM. Breathing has been near baseline. She continue to have chest congestion and has difficulty expectorating mucus. Her daughter has been trying to remind her to use the flutter valve. BG has been running between 140-170's. She has some occasional reads in the 200's depending on diet. Edema is still present in the LE's L>R. She will get occasional pitting to the left ankle region. She admits to having persistent pain to the left lower leg. The heel wound she had in the past is healed. She has some edema to the right side but no pain in the leg. Her daughter has increased the Torsemide dose for 3 days but is unsure if he has helped much with the edema. She does have abdominal bloatingand weight gain some days. She is scheduled to see Cardiology next month and is going to have a repeat ECHO in a couple weeks. Appetite is good some days and others she doesn't feel much like eating.Her daughter reports days where she is very sleepy and doesn't want to do much. She is involved in home PT currently. ROS: See HPI Objective Physical Exam: BP 136/80 (BP Site: Right Arm, BP Position: Sitting, BP Cuff Size: Regular) | Pulse 72 | Temp 36.5 C (97.7 F) | Resp 16 | SpO2 95% Previous Wts: Wt Readings from Last 5 Encounters: 11/26/22 112 kg (247 lb) 10/29/22 115.7 kg (255 lb) 10/23/22 114.3 kg (252 lb) 10/23/22 115.7 kg (255 lb) 09/19/22 115.7 kg (255 lb) Previous BPs: BP Readings from Last 5 Encounters: 12/20/22 136/80 12/13/22 110/68 11/27/22 118/74 11/26/22 118/64 11/13/22 110/50 Physical Exam Constitutional: General: She is not in acute distress. HENT: Head: Normocephalic and atraumatic. Nose: Nose normal. Mouth/Throat: Pharynx: Oropharynx is clear. Eyes: Extraocular Movements: Extraocular movements intact. Conjunctiva/sclera: Conjunctivae normal. Cardiovascular: Rate and Rhythm: Normal rate and regular rhythm. Heart sounds: Murmur heard. Pulmonary: Effort: Pulmonary effort is normal. No respiratory distress. Breath sounds: Normal breath sounds. Neurological: Mental Status: She is alert. Diagnostic [...] 1 Kit 0 Blood Glucose Monitoring Suppl (BloggerceUCH VERIO) w/Device KIT Use as directed. Use as directed. 1 Kit 0 Spacer/Aero-Holding Chambers WISAM Use with inhaler. Wheezing/bronchitis. 1 Device 0 [employer] DelDebtMarket Lancets 33G MISC USE UP TO FOUR TIMES A DAY Dx:E11.4 100 Each 5 Lancet Devices (CuralateTOUCH DELICA LANCING DEV) MISC Use four times [...] by mouth every morning. 30 Tablet 5 UltiCare Pen [place] 31G X 5 MM (Insulin Pen Needle) USE ONE NEEDLE TWICE DAILY 200 Each 3 Insulin Glargine Solostar 100 UNIT/ML Subcutaneous [...] Respimat 2.5 MCG/ACT Inhalation Aerosol Solution (Tiotropium Superior Monohydrate) Inhale by mouth 2 Puffs in the morning. 4 g 3 Estradiol 0.1 MG/GM Vaginal Cream Administer into the vagina 1 g in the morning. 42.5 g 12 OneTouch Verio In Vitro Strip (Glucose Blood) USE TO CHECK BLOOD SUGAR THREE TIMES A DAY 300 Strip 1 Torsemide 20 MG Oral Tablet (Demadex) TAKE 1 TABLET BY MOUTH EVERY MORNING. MAY TAKE 1 ADDITIONAL TABLET NEEDED FOR SWELLING. 90 Tablet 0 Diclofenac Sodium 1 % External Gel (Voltaren) Apply topically to affected area 2 times a day. 150 g 3 Vitamin D (Ergocalciferol) 1.25 MG (11704 UT) Oral Capsule (Drisdol) TAKE ONE CAPSULE BY MOUTH WEEKLY 12 Capsule 3 Benzonatate 100 MG Oral Capsule (Tessalon Perles) TAKE ONE CAPSULE BY MOUTH THREE TIMES DAILY NEEDED for cough. do not cut, crush or chew 50 Capsule 0 AIRS Disposable Nebulizer Kit Use as directed 1 Kit 0 Spironolactone 50 MG Oral Tablet (Aldactone) Take 1 Tablet by mouth in the morning and 1 Tabletbefore bedtime. 60 Tablet 5 Ipratropium-Albuterol 0.5-2.5 (3) MG/3ML Inhalation Solution (Duoneb) [...] MOUTH TWICE DAILY 60 Capsule 5 Nystatin 073262 UNIT/ML Mouth/Throat Suspension Swish and swallow 5 mL in the morning and 5 mL at noon and 5 mL in the evening and 5 mL before bedtime. For thrush.. 240 mL 1 Tamsulosin HCl 0.4 MG Oral Capsule (Flomax) Take 1 Capsule by mouth in the morning. Every morning.. 90 Capsule 3 Methenamine Hippurate 1 GM Oral Tablet (Hiprex) Take 1 Tablet by mouth in the morning and 1 Tablet before bedtime. 60 Tablet 3 lamoTRIgine 25 MG Oral Tablet (LaMICtal) [...] mouth in the morning. 90 Tablet 1 Sucralfate 1 GM Oral Tablet (Carafate) Take 1 Tablet by mouth in the morning. 90 Tablet 0 Albuterol Sulfate HFA 108 (90 Base) MCG/ACT Inhalation Aerosol Solution Use two puffs four times a day, as directed 18 g 3 Oxybutynin Chloride ER 10 MG Oral Tablet Extended Release 24 Hour (Ditropan XL) TAKE ONE TABLETBY MOUTH IN THE MORNING 90 Tablet 0 Vitamin C 500 MG Oral Tablet (Ascorbic Acid) TAKE 1 TABLET BY MOUTH TWICE DAILY 60 Tablet 0 Morphine Sulfate ER 15 MG Oral Tablet Extended Release (Ms Contin) Take 1 Tablet by mouth at bedtime as needed for Pain, Severe. 30 Tablet 0 oxyCODONE HCl 5 MG Oral Tablet (Oxy IR) Take 1 Tablet by mouth every 8 hours as needed (pain). 60 Tablet 0 clonazePAM 0.5 MG Oral Tablet (KlonoPIN) TAKE ONE TABLET BY MOUTH THREE TIMES DAILY 90 Tablet 0 Pantoprazole Sodium 40 MG Oral Tablet Delayed Release (Protonix) TAKE ONE TABLET BY MOUTH IN THE MORNING AND ONE TABLET IN THE EVENING 60 Tablet 5 Potassium Chloride Mag ER 20 MEQ Oral Tablet Extended Release TAKE ONE TABLET BY MOUTH IN THE MORNING. to use when taking additional torsemide 30 Tablet 0 Dicyclomine HCl 10 MG Oral Capsule (Bentyl) [...] breakfast and other medications 90 Tablet 3 Cefdinir 300 MG Oral Capsule (Omnicef) Take 1 Capsule by mouth in the morning and 1 Capsule before bedtime. Do all this for 10 days. For 10 days.. 20 Capsule 0 Xifaxan 550 MG Oral Tablet (rifAXIMin) TAKE 1 TABLET BY MOUTH TWICE DAILY 60 Tablet 5 Montelukast Sodium 10 MG Oral Tablet (Singulair) TAKE 1 TABLET BY MOUTH ONCE DAILY 90 Tablet 1 Current Facility-Administered Medications Medication Dose Route Frequency Provider Last Rate Last Admin Albuterol Sulfate (Proventil) (2.5 MG/3ML) 0.083% inhalation solution 2.5 mg 2.5 mg Nebulizer PRN Melchor Kwon MD Albuterol Sulfate (Proventil) (5 MG/ML) 0.5% *conc* inhalation solution 2.5 mg 2.5 mg NebulizerPRN Melchor Kwon MD Mobility Evaluation: MACH10 Assessment: Assistive Devices Used in the Home: Walker (standard or rollator) Recent Falls: Falls in the last 6 months: No SDoH: DME (Durable Medical Equipment) needs Industrial Maintenance Manager Services / Assistance with ADLs and Self-Care Routine Transportation Urgent Transportation Social Isolation Behavioral Health needs Lashay Johnston PA-C 8:55 AM *Communication sent to PCP (via autofax if non[facility]), Population Health Care Team members, relevant Specialty Care Physicians* documented in this encounter Plan of Treatment Upcoming Encounters Date Type Specialty Care Team Description 12/27/2022 Cardiac Studies Cardiac Studies 12/30/2022 Telemedicine Pharmacy [address] [address] 01/13/2023 Office Visit Cardiology Sobia Brewster PA-C [address] [place] [address] 01/14/2023 Office Visit Gynecology Urology Nir Landa MD [address] [place] [address] Nurse Yury Fox [address] [place] [address] 01/20/2023 Telemedicine [facility] Lashay Blevins PA-C [address] [place] [address] Beverly Lozoya, Community Health Child Care Coordinator [address] [place] [address] [place] [address] 01/22/2023 Office Visit Infectious Disease Vidya Fabian MD [address] [place] [address] 04/09/2023 Office Visit Urology Alfredo Panda MD [address] [place] [address] 04/28/2023 Office Visit Family Medicine Brian Domínguez MD [address] [place] [address] 05/09/2023 Office Visit Gastroenterology Wendy Frias, DO [address] [place] [address] Scheduled Orders Name Type Priority Associated Diagnoses Order Schedule VASC DUPLEX VENOUS LE BILAT Medical Imaging Routine Bilateral lower extremity edema Ordered: 12/20/2022 VASC ANKLE BRACHIAL INDICES WITHOUT PPG (PAD) Medical Imaging Routine Bilateral lower extremity edema Ordered: 12/20/2022 CULTURE, URINE, QUANTITATIVE Lab Routine Recurrent UTI UTI symptoms 8 Occurrences starting 12/20/2022 until 12/21/2023 Scheduled Procedures Name Priority Associated Diagnoses Date/Ti [...] Additional history exists CKD PHOS USE SMARTSET 19948 10/24/202310/05, 02/18/2022, 02/17/2022, Additional history exists TSH 10/24/2023 10/23/2022, 02/05, 09/24/2021, Additional history exists CKD HGB USE SMARTSET 60508 11/22/202311/21, 11/21/2022, 04/25/2022, Additional history exists Colonoscopy [...] this encounter Medical Devices Implanted Type Area Size Stamper Device Identifier Shelf Expiration Date Model / Serial / Lot Sut Steel 6 [id number] - [id number] Implanted:Qty: 1 on 02/15/2011 at [place] [facility] [place]A: Chest DO NOT USE 07/21/2015 [id number] / / [id number] documented as of this encounter Visit Diagnoses Diagnosis 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)- Primary Type 2 diabetes mellitus with diabetic neuropathy, with long-term current use of insulin (HCC) Recurrent UTI Urinary tract infection, site not specified UTI symptoms Other symptoms involving urinary system Bilateral lower extremity edema Edema documented in this encounter Advance Directives Documents on File Type Date Recorded Patient Infant And Toddler Teacher Jose GARZON 05/06/2018 POL Latest Code Status on File Code Status Date Activated Date Inactivated Comments Full Code 06/25/2011 3:09 AM 06/26/2011 9:47 PM Thi s order reflects the patients wishes and were consensually agreed upon. Question Answer Comments Discussion of Advance Directives occurred with: Patient Does the patient have a Living Will? No Does the patient have Health Care Power of Embossing Clerk? No Code Status History Code Status [...] the patient have Health Care Power of Embossing Clerk? No Full Code 02/01/2010 4:02 PM 02/02/2010 4:09 PM This order reflects the patients wishes and were consensually agreed upon. Question Answer Comments Discussion of Advance Directives occurred with: Not Discussed Does the patient have a Living Will? No Does the patient have Health Care Power of Embossing Clerk? No Healthcare Agents on File Name Relationship Healthcare Agent Relationshi p Communication Carolyn Ballard Adult Child Health Care Agent Care Teams Geosciences Associate Professor Relationship Specialty Start Date End Date Brian Domínguez MD [address] [place], [place] [id number] PCP - General Family Medicine 07/16/17 documented as of this encounter"
--- OUTSIDE RECORDS SUMMARY | 2023-05-17 12:20 | External Medical Summary | Summary of Care ---
Author Name Unknown Organization [facility] Address [address] [place] [address] Phone [phone] Care Team Providers Care Arborist Representative Name Role Phone Brian Domínguez MD Primary Care Provider [phone]- [phone] Reason for Visit * Reason Comments eRx-Medication Refill Encounter Details Date Type Department Care Team Description 12/06/2022 Refill Gastroenterology, [facility] [address] [place] [address] Wendy Butterfield DO [address] [place] [address] Nausea Allergies Active Allergy Reactions Severity Noted Date Comments Propoxyphene Hcl Rash Low 10/29/2010 Fentanyl Diarrhea Low 04/26/2010 anxiety Methocarbamol Medium 10/05/2020 Other reaction(s): Delirium Methocarbamol Low 04/15/2007 Zolpidem Low 10/05/2020 Other reaction(s): Confusion documented as of this encounter (statuses as of 12/09/2022) Medications Medication Sig Dispensed Refills Start Date End Date Status ARIPiprazole (ABILIFY) 2 MG Tablet Take 1 Tablet by mouth in the morning. 0 07/11/19 16 Active venlafaxine XR (EFFEXOR XR) 150 MG [id number]:De pression Take 1 Cap by mouth daily. With food. 30 Cap 5 09/02/19 17 Active Additional Information Patient taking differently: 225 mgOral Daily(AM), With food.,Indications: Takes 225 mg total every morning with food (150 mg tab + 75 mg tab), Reported on 06/24/2022 Blood Glucose Monitoring Suppl (Instapagar-ZigaVite GLUCOMETER) w/Device KITIndications:Unc ontrolled type 2 diabetes mellitus without complication, without long-term current use of insulin Use as directed. Use as directed once daily 1 Kit 0 11/19/19 18 Active Blood Glucose Monitoring Suppl (FillmIO) w/Device KIT Use as directed. Use as [...] morning. 30 Tablet 5 03/12/20 22 Active Levothyroxine Sodium 88 MCG Oral Tablet (Levoxyl)Indicatio ns:Hypothyroidism TAKE 1 TABLET BY MOUTH ONCE DAILY at least 30 minutes before breakfast and other medications 90 Tablet 3 03/13/20 22 Active Polyethylene Glycol 3350 17 GM/SCOOP Oral Powder (Miralax) USE 1/2 OF BOTTLE IN 32 [place] OF [place] THE DAY BEFORE AND THE DAY OF PROCEDURE DIRECTED 238 g 0 03/19/20 Active UltiCare Pen [place] 31G X 5 MM (Insulin Pen Needle) USE ONE NEEDLE TWICE DAILY 200 Each 3 04/03/20 Active Insulin Glargine Solostar 100 UNIT/ML Subcutaneous Solution Pen-injector (Basaglar KwikPen)Indication s:Type 2 diabetes mellitus with diabetic neuropathy, with long-term current use of insulin ([facility]) Inject 30 units under the [...] Respimat 2.5 MCG/ACT Inhalation Aerosol Solution (Tiotropium [place] Monohydrate) Inhale by mouth 2 Puffs in [...] Oral Tablet (Demadex)Indicatio ns:Atherosclerotic heart disease of [place] coronary artery with other forms of [...] 22 Active Vitamin D (Ergocalciferol) 1.25 MG (14361 UT) Oral Capsule (Drisdol)Indicatio ns:Vitamin D deficiency TAKE ONE CAPSULE BY MOUTH WEEKLY 12 Capsule 3 06/19/20 22 Active Montelukast Sodium 10 MG Oral Tablet (Singulair)Indicat ions:Nasal sinus congestion,PND (post-nasal drip) TAKE 1 TABLET BY MOUTH ONCE DAILY 90 Tablet 1 06/25/20 22 Active Xifaxan 550 MG Oral Tablet (rifAXIMin)Indicat ions:GONZALEZ (nonalcoholic steatohepatitis),C hronic liver disease and cirrhosis (HCC),Hepatic encephalopathy (HCC) TAKE 1 TABLET BY MOUTH TWICE DAILY 60 Tablet 5 06/27/20 22 Active Benzonatate 100 MG Oral Capsule [...] 60 Capsule 5 08/22/19 23 Active Nystatin 721886 UNIT/ML Mouth/Throat Suspension Swish and swallow 5 [...] DAILY 90 Tablet 0 11/30/19 23 Active levoFLOXacin 500 MG Oral Tablet Take 1 Tablet by mouth in the morning for 10 days. until gone.. 10 Tablet 0 11/30/19 23 023 Active Pantoprazole Sodium 40 MG Oral Tablet [...] NAUSEA 60 Tablet 5 12/10/19 23 Active Ondansetron HCl 8 MG Oral Tablet (Zofran)Indication s:Nausea TAKE ONE TABLET BY MOUTH EVERY EIGHT HOURS NEEDED FOR NAUSEA 60 Tablet 5 12/29/19 22 023 Discontinued Hospital, Clinic, or Other [...] as of this encounter (statuses as of 12/09/2022) Active Problems Problem Noted Date Hypertensive heart and kidne y disease with chronic diastolic congestive heart failure and stage 3a chronic kidney disease 12/28/2021 Last Assessment & Plan: Euvolemic, BP stable EF 55% 09/25 GFR 69 02/25 -Continue Torsemide 20 mg BID, Spironolactone 25 mg BID, Tropol XL 50 mg daily Atherosclerotic heart diseas e of [place] coronary artery with other forms of angina pectoris 11/15/2021 Last Assessment & Plan: Stable. No angina -continue toprol, ASA and statin Seasonal allergies 11/15/2021 Recurrent UTI 10/07/2021 Last Assessment & Plan: Followed by urology Pt is supposed to be on methenamine--will need to clarify with dgt that she is giving this. 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 therapy 1 08/18/2005 [...] as of this encounter (statuses as of 12/09/2022) Immunizations Name Administration Dates Next Due COVID-19 [...] encounter Miscellaneous Notes * Telephone Encounter - Demetria Navarrete [facility] - 12/09/2022 8:40 AM EDTSigned Prescriptions: Disp Refills Ondansetron HCl 8 MG Oral Tablet (Zofran) 60 Tab*5 Sig: TAKE 1 TABLET BY MOUTH EVERY 8 HOURS NEEDED FOR NAUSEA Authorizing Provider: WENDY BUTTERFIELD Ordering User: DEMETRIA ANVARRETE * Telephone Encounter - Interface, [facility] - 12/08/2022 1:47 PM EDT Pending Prescriptions: Disp Refills Ondansetron HCl 8 MG Oral Tablet [Pharmacy*60 Tab*0 Sig: TAKE 1TABLET BY MOUTH EVERY 8 HOURS NEEDED FOR NAUSEA documented in this encounter Plan of Treatment Upcoming Encounters Date Type Specialty Care Team Description 12/09/2022 Imaging Radiology 12/17/2022 Telemedicine [facility] Lashay Blevins PA-C [address] [place] [address] Beverly Lozoya, [address] [place] [address] 12/27/2022 Cardiac Studies Cardiac Studies 12/30/2022 Telemedicine Pharmacy [facility] [address] [place] [address] 01/13/2023 Office Visit Cardiology Sobia Brewster PA-C [address] [place] [address] 01/22/2023 Office Visit Infectious Disease Vidya Fabian MD [address] [place] [address] 04/09/2023 Office Visit Urology Alfredo Panda MD [address] [place] [address] 04/28/2023 Office Visit Family Medicine Brian Domínguez MD [address] [place] [address] 05/09/2023 Office Visit Gastroenterology Wendy Butterfield DO [address] [place] [address] Scheduled Procedures Name Priority Associated Diagnoses Date/Ti [...] Additional history exists COVID-19 Vaccine (4 - Booster for Moderna series) 08/05/2021 06/10/2021, 08/29/2020, 08/01/2020 HbA1c 04/24/2023 10/23/2022, 04/07, 11/01/2021, Additional history exists GFR 06/06/2023 12/05/2022, 06/0 07/2022, 11/18/2022, Additional history exists Albumin/Creatinine Ratio 10/24/2023 023, 07/17/2022, 10/05/2020, Additional history exists CKD PHOS USE SMARTSET 77732 10/24/202310/05, 02/18/2022, 02/17/2022, Additional history exists TSH 10/24/2023 10/23/2022, 02/05, 09/24/2021, Additional history exists CKD HGB USE SMARTSET 65158 11/22/202311/21, 11/21/2022, 04/25/2022, Additional history exists Colonoscopy [...] this encounter Medical Devices Implanted Type Area Field Broomer Device Identifier Shelf Expiration Date Model / Serial / Lot Jenna Rojas 6 [id number] - [id number] Implanted:Qty: 1 on 02/15/2011 at OR [facility] N/A: Chest DO NOT USE 07/21/2015 [id number] / / [id number] documented as of this encounter Visit Diagnoses Diagnosis Nausea Nausea alone documented in this encounter Advance Directives Documents on File Type Date Recorded Patient Director Call 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 Question Answer Comments Discussion of Advance Directives occurred with: Patient Does the patient have a Living Will? No Does the patient have Health Care Power of Icu Nurse? No Code Status History Code Status [...] the patient have Health Care Power of Icu Nurse? No Full Code 02/01/2010 4:02 PM 02/02/2010 4:09 PM This order reflects the patients wishes and were consensually agreed upon. Question Answer Comments Discussion of Advance Directives occurred with: Not Discussed Does the patient have a Living Will? No Does the patient have Health Care Power of Icu Nurse? No Healthcare Agents on File Name Relationship Healthcare Agent Relationshi p Communication Carolyn Ballard Adult Child Health Care Agent Care Teams Arborist Representative Relationship Specialty Start Date End Date Brian Doímnguez MD [address] [facility] [place] [id number] PCP - General Family Medicine 07/16/17 documented as of this encounter
--- OUTSIDE RECORDS SUMMARY | 2023-05-17 12:20 | External Medical Summary | Summary of Care ---
Author Name Unknown Organization [facility] Address [address] [place] [address] Phone [phone] Care Team Providers Care Maturity Checker Name Role Phone Brian Domíngeuz MD Primary Care Provider [phone]- [phone] Reason for Visit * Reason Onset Date Comments Appointment 12/12/2022 Encounter Details Date Type Department Care Team Description 12/12/2022 Telephone [facility] [place] [address] [place], [place] [id number] Services, Scheduling [address] [place] [address] Appointment (/) Allergies Active Allergy Reactions Severity Noted Date Comments Propoxyphene Hcl Rash Low 10/29/2010 Fentanyl Diarrhea Low 04/26/2010 anxiety Methocarbamol Medium 10/05/2020 Other reaction(s): Delirium Methocarbamol Low 04/15/2007 Zolpidem Low 10/05/2020 Other reaction(s): Confusion documented as of this encounter (statuses as of 12/12/2022) Medications Medication Sig Dispensed Refills Start Date End Date Status ARIPiprazole (ABILIFY) 2 MG Tablet Take 1 Tablet by mouth in the morning. 0 2015 Active venlafaxine XR (EFFEXOR XR) 150 MG [id number]:Dep ression Take 1 Cap by mouth daily. [...] 0 11/18/2017 Active Blood Glucose Monitoring Suppl (AutomileUCH VERIO) w/Device KIT Use as directed. Use [...] 238 g 0 03/19/2022 Active UltiCare Pen [place] 31G X 5 MM (Insulin Pen Needle) USE ONE NEEDLE TWICE DAILY 200 Each 3 04/03/2022 Active Insulin Glargine Solostar 100 UNIT/ML Subcutaneous Solution Pen-injector (Basaglar KwikPen)Indications :Type 2 diabetes mellitus with diabetic neuropathy, with long-term current use of insulin (HCC) Inject 30 units under the skin twice daily 45 mL 3 04/16/2022 Active Insulin Glargine Solostar 100 UNIT/ML Subcutaneous Solution Pen-injector (Frequencyaglar KwikPen)Indications :Type 2 diabetes mellitus with diabetic neuropathy, with long-term current use of insulin ([facility]) Inject 30 units under the [...] Respimat 2.5 MCG/ACT Inhalation Aerosol Solution (Tiotropium [place] Monohydrate) Inhale by mouth 2 Puffs in the morning. 4 g 3 04/25/2022 Active Estradiol 0.1 MG/GM Vaginal Cream Administer into the vagina 1 g in the morning. 42.5 g 12 05/07/2022 Active OneTouch Verio In Vitro Strip (Glucose Blood)Indications:T ype 2 diabetes mellitus with diabetic neuropathy, with long-term current use of insulin ([facility]) USE TO CHECK BLOOD SUGAR THREE TIMES A DAY 300 Strip 1 05/11/2022 Active Torsemide 20 MG Oral Tablet (Demadex)Indication s:Atherosclerotic heart disease of [place] coronary artery with other forms of angina pectoris ([facility]),Hypertensive heart disease with chronic diastolic congestive heart failure (HCC) TAKE 1 TABLET BY MOUTH EVERY MORNING. MAY TAKE 1 ADDITIONAL TABLET NEEDED FOR SWELLING. 90 Tablet 0 05/13/2022 Active Diclofenac Sodium 1 % External Gel (Voltaren) Apply topically to affected area 2 times a day. 150 g 3 06/05/2022 Active Vitamin D (Ergocalciferol) 1.25 MG (17771 UT) Oral Capsule (Drisdol)Indication s:Vitamin D deficiency TAKE ONE CAPSULE BY MOUTH WEEKLY 12 Capsule 3 06/19/2022 Active Montelukast Sodium 10 MG Oral Tablet (Singulair)Indicati ons:Nasal sinus congestion,PND (post-nasal drip) TAKE 1 TABLET BY MOUTH ONCE DAILY 90 Tablet 1 06/25/2022 Active Xifaxan 550 MG Oral Tablet (rifAXIMin)Indicati ons:GONZALEZ (nonalcoholic steatohepatitis),Ch ronic liver disease and cirrhosis (HCC),Hepatic encephalopathy (HCC) TAKE 1 TABLET BY MOUTH TWICE DAILY 60 Tablet 5 06/27/2022 Active Benzonatate 100 MG Oral Capsule (Tessalon Perles) TAKE ONE CAPSULE BY MOUTH THREE TIMES DAILY NEEDED for cough. do not cut, crush or chew 50 Capsule 0 07/10/2022 Active Grokker Disposable Nebulizer Kit Use as directed 1 [...] DAILY 60 Capsule 5 08/22/2022 Active Nystatin 706327 UNIT/ML Mouth/Throat Suspension Swish and swallow 5 [...] other medications 90 Tablet 3 12/10/2022 Active Hospital, Clinic, or Other Facility Administered [...] as of this encounter (statuses as of 12/12/2022) Active Problems Problem Noted Date Hypertensive heart and kidne y disease with chronic diastolic congestive heart failure and stage 3a chronic kidney disease 12/28/2021 Last Assessment & Plan: Euvolemic, BP stable EF 55% 09/25 GFR 69 02/25 -Continue Torsemide 20 mg BID, Spironolactone 25 mg BID, Tropol XL 50 mg daily Atherosclerotic heart diseas e of [place] coronary artery with other forms of angina pectoris 11/15/2021 Last Assessment & Plan: Stable. No angina -continue toprol, ASA and statin Seasonal allergies 11/15/2021 Recurrent UTI 10/07/2021 Last Assessment & Plan: Followed by urology Pt is supposed to be on methenamine--will need to clarify with dgt that she is giving this. 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 documented in this encounter Plan of Treatment Upcoming Encounters Date Type Specialty Care Team Description 12/20/2022 Telemedicine [facility] Lashay Blevins PA-C [address] [place] [address] Beverly Lozoya [address] [place] [id number] 12/27/2022 Cardiac Studies Cardiac Studies 12/30/[address] [facility] [address] [place] [address] 01/13/2023 Office Visit Cardiology Sobia Brewster PA-C [address] [place] [address] 01/22/2023 Office Visit Infectious Disease Vidya Fabian MD [address] [place], [place] [phone] 04/09/2023 Office Visit Urology Alfredo Panda MD [address] [place] [address] 04/28/2023 Office Visit Family Medicine Brian Domínguez MD [address] [place] [address] 05/09/2023 Office Visit Gastroenterology Wendy Frias, DO [address] [place] [address] Scheduled Procedures Name Priority Associated Diagnoses Date/Ti [...] Additional history exists CKD PHOS USE SMARTSET 39361 10/24/202310/05, 02/18/2022, 02/17/2022, Additional history exists TSH 10/24/2023 10/23/2022, 02/05, 09/24/2021, Additional history exists CKD HGB USE SMARTSET 49689 11/22/202311/21, 11/21/2022, 04/25/2022, Additional history exists Colonoscopy [...] this encounter Medical Devices Implanted Type Area Sea Captain Device Identifier Shelf Expiration Date Model / Serial / Lot Jenna Rojas 6 [id number] - [id number] Implanted:Qty: 1 on 02/15/2011 at OR [facility] N/A: Chest DO NOT USE 07/21/2015 [id number] / / [id number] documented as of this encounter Advance Directives Documents on File Type Date Recorded Patient Balance And Hairspring Assembler Expl anation POLST 05/06/2018 POLST Latest [...] the patient have Health Care Power of Message Clerk? No Code Status History Code Status [...] the patient have Health Care Power of Message Clerk? No Full Code 02/01/2010 4:02 PM 02/02/2010 4:09 PM This order reflects the patients wishes and were consensually agreed upon. Question Answer Comments Discussion of Advance Directives occurred with: Not Discussed Does the patient have a Living Will? No Does the patient have Health Care Power of Message Clerk? No Healthcare Agents on File Name Relationship Healthcare Agent [facility] Communication Eliot Goldmandrewnabila Adult Child Health Care Agent Care Teams Maturity Checker Relationship Specialty Start Date End Date Brian Domínguez MD [address] [place] [address] PCP - General Family Medicine 07/16/17 documented as of this encounter
--- OUTSIDE RECORDS SUMMARY | 2023-05-17 12:20 | External Medical Summary | Summary of Care ---
Author Name Unknown Organization [facility] Address [address] [place] [address] Phone [phone] Care Team Providers Care Rigging Loft Mechanic Name Role Phone Carmen Sifuentes MD Primary Care Provider [phone]- [phone] Reason for Visit * Reason Comments eRx-Medication Refill Encounter Details Date Type Department Care Team Description 12/06/2022 Refill [facility] [address] [place] [address] Carmen Sifuentes MD [address] [place] [address] Abdominal pain Allergies Active Allergy Reactions Severity Noted Date Comments Propoxyphene Hcl Rash Low 10/29/2010 Fentanyl Diarrhea Low 04/26/2010 anxiety Methocarbamol Medium 10/05/2020 Other reaction(s): Delirium Methocarbamol Low 04/15/2007 Zolpidem Low 10/05/2020 Other reaction(s): Confusion documented as of this encounter (statuses as of 12/08/2022) Medications Medication Sig Dispensed Refills Start Date End Date Status ARIPiprazole (ABILIFY) 2 MG Tablet Take 1 Tablet by mouth in the morning. 0 07/11/19 16 Active venlafaxine XR (EFFEXOR XR) 150 MG [id number]:De pression Take 1 Cap by mouth daily. With food. 30 Cap 5 09/02/19 17 Active Additional Information Patient taking differently: 225 mgOral Daily(AM), With food.,Indications: Takes 225 mg total every morning with food (150 mg tab + 75 mg tab), Reported on 06/24/2022 Blood Glucose Monitoring Suppl (Bitzer Mobile-Weddingful GLUCOMETER) w/Device KITIndications:Unc ontrolled type 2 diabetes mellitus without complication, without long-term current use of insulin Use as directed. Use as directed once daily 1 Kit 0 11/19/19 18 Active Blood Glucose Monitoring Suppl (SkytreeIO) w/Device KIT Use as directed. Use as directed. 1 Kit 0 11/01/19 19 Active Spacer/Aero-Holdin g Chambers WISAM Use with inhaler. Wheezing/bronchiti s. 1 Device 0 04/08/20 19 Active AccruentTouch Delica Lancets 33G MISC USE UP TO FOUR TIMES A DAY Dx:E11.4 100 Each 5 09/30/19 20 Active Lancet Devices (StaffInsightTOUCH DELICA LANCING DEV) MISC Use four times [...] DIRECTED 2700 mL 5 10/05/19 22 Active Ondansetron HCl 8 MG Oral Tablet (Zofran)Indication s:Nausea TAKE ONE TABLET BY MOUTH EVERY EIGHT HOURS NEEDED FOR NAUSEA 60 Tablet 5 12/29/19 22 Active Budesonide-Formote rol Fumarate 160-4.5 MCG/ACT [...] g 0 03/19/20 22 Active UltiCare Pen Russell 31G X 5 MM (Insulin Pen Needle) USE ONE NEEDLE TWICE DAILY 200 Each 3 04/03/20 22 Active Insulin Glargine Solostar 100 UNIT/ML Subcutaneous Solution Pen-injector (Basaglar KwikPen)Indication s:Type 2 diabetes mellitus with diabetic neuropathy, with long-term current use of insulin ([facility]) Inject 30 units under the skin twice daily 45 mL 3 04/16/20 22 Active Insulin Glargine Solostar 100 UNIT/ML Subcutaneous Solution Pen-injector (Basaglar KwikPen)Indication s:Type 2 diabetes mellitus with diabetic neuropathy, with long-term current use of insulin ([facility]) Inject 30 units under the [...] Respimat 2.5 MCG/ACT Inhalation Aerosol Solution (Tiotropium [place] Monohydrate) Inhale by mouth 2 Puffs in [...] 22 Active Vitamin D (Ergocalciferol) 1.25 MG (20586 UT) Oral Capsule (Drisdol)Indicatio ns:Vitamin D deficiency [...] 60 Capsule 5 08/22/19 23 Active Nystatin 149367 UNIT/ML Mouth/Throat Suspension Swish and swallow 5 [...] 10 Tablet 0 11/30/19 23 023 Active Potassium Chloride Mag ER 20 MEQ Oral Tablet Extended Release TAKE ONE TABLET BY MOUTH IN THE MORNING. to use when taking additional torsemide 30 Tablet 0 12/04/19 23 Active Dicyclomine HCl 10 MG Oral Capsule (Bentyl)Indication s:Abdominal pain TAKE ONE CAPSULE BY MOUTH FOUR TIMES DAILY NEEDED FOR ABDOMINAL PAIN 120 Capsule 3 12/09/19 23 Active Dicyclomine HCl 10 MG Oral Capsule (Bentyl)Indication s:Abdominal pain TAKE ONE CAPSULE BY MOUTH FOUR TIMES DAILY NEEDED FOR ABDOMINAL PAIN 120 Capsule 1 06/08/20 21 023 Discontinued Pantoprazole Sodium 40 MG Oral Tablet Delayed Release (Protonix)Indicati ons:Gastroesophage al reflux disease without esophagitis TAKE ONE TABLET BY MOUTH IN THE MORNING AND ONE TABLET IN THE EVENING 60 Tablet 0 09/26/19 23 023 Discontinued Hospital, Clinic, or Other [...] as of this encounter (statuses as of 12/08/2022) Active Problems Problem Noted Date Hypertensive heart [...] is giving this. 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 Anxiety 08/05/2017 Qkyitwu-Zytwt-Oxumm disease 06/27/2015 Last Assessment & Plan: Frequent [...] as of this encounter (statuses as of 12/08/2022) Resolved Problems Problem Noted Date Resolved Date [...] 10/31/201008/08 Acute coronary syndrome 10/30/2010 01/22/20 14 [employer] Research Other*[id number] 02/02/2010 04/18/2014 Overview: [place] [facility], Dr Joel Kwon PI Obesity, morbid [...] as of this encounter (statuses as of 12/08/2022) Immunizations Name Administration Dates Next Due COVID-19 [...] Telephone Encounter - Carmen Sifuentes MD - 12/08/2022 6:27 PM EDTSigned Prescriptions: Disp Refills Dicyclomine HCl 10 MG Oral Capsule (Bentyl)120 Ca*3 Sig: TAKE ONE CAPSULE BY MOUTH FOUR TIMES DAILY NEEDED FOR ABDOMINAL PAINAuthorizing Provider: CARMEN SIFUENTES * Telephone Encounter - Interface, E-Rx Ss Inbound - 12/08/2022 1:47 PM EDT Pending Prescriptions: Disp Refills Dicyclomine HCl 10 MG Oral Capsule [Pharma*120 Ca*0 Sig: TAKE ONE CAPSULE BY MOUTH FOUR TIMES DAILY NEEDED FOR ABDOMINAL PAIN * Telephone Encounter - Magdalena Negron LPN - 12/07/2022 8:12 AM EDTPending Prescriptions: Disp Refills Dicyclomine HCl 10 MG Oral Capsule [Pharma*120 Ca*0 Sig: TAKE ONE CAPSULE BY MOUTH FOUR TIMES DAILY NEEDED FOR ABDOMINAL PAIN * Telephone Encounter - Magdalena Negron LPN - 12/07/2022 8:11 AM EDT Did you pend patient's preferred pharmacy and medication before forwarding?yes Pharmacy: [id number] [address] [facility] Pending Prescriptions: Disp Refills Dicyclomine HCl 10 MG Oral Capsule (Benty*120 Ca*0 Sig: TAKE ONE CAPSULE BY MOUTH FOUR TIMES DAILY NEEDED FOR ABDOMINAL PAIN Last Visit: 11/26/2022 (in office), 03/06/2022 (telemedicine) Next Visit: 04/28/2023 If no future appointments scheduled, and last appointment is greater than a year ago, please schedule patient for a follow-up appointment Last date the medication was ordered: 06/08/21 Is this request for a controlled substance?No [...] AM HGBA1C 5.9 (H) 05/22/2020 01:24 PM * Telephone Encounter - Marine Jacob - 12/07/2022 12:37 AM EDTPending Prescriptions: Disp Refills Dicyclomine HCl 10 MG Oral Capsule [Pharma*120 Ca*0 Sig: TAKE ONE CAPSULE BY MOUTH FOUR TIMES DAILY NEEDED FOR ABDOMINAL PAIN documented in this encounter Plan of Treatment Upcoming Encounters Date Type Specialty Care Team Description 12/09/2022 Imaging Radiology 12/17/2022 Telemedicine [facility]ins [facility]C [address] [facility] [address] Beverly Lozoya, Community Health Integrity Director [address] [place] [address] [place] [address] 12/27/2022 Cardiac Studies Cardiac Studies 12/30/2022 [address] [phone] 01/13/2023 Office Visit Cardiology Sobia Brewster PA-C [address] [place] [address] 01/22/2023 Office Visit Infectious Disease Vidya Fabian MD [address] [place] [address] 04/09/2023 Office Visit Urology Alfredo Panda MD [address] [place] [address] 04/28/2023 Office Visit Family Medicine Carmen Sifuentes MD [address] [place] [address] 05/09/2023 Office Visit Gastroenterology Wendy Frias, [address] [place] [address] Scheduled Procedures Name Priority Associated Diagnoses Date/Ti [...] Additional history exists CKD PHOS USE SMARTSET 58040 10/24/202310/05, 02/18/2022, 02/17/2022, Additional history exists TSH 10/24/2023 10/23/2022, 02/05, 09/24/2021, Additional history exists CKD HGB USE SMARTSET 85656 11/22/202311/21, 11/21/2022, 04/25/2022, Additional history exists Colonoscopy [...] this encounter Medical Devices Implanted Type Area Laborer Livestock Device Identifier Shelf Expiration Date Model / Serial / Lot Sut Bob 6 [id number] - [id number] Implanted:Qty: 1 on 02/15/2011 at OR [facility] N/A: Chest DO NOT USE 07/21/2015 [id number] / / [id number] documented as of this encounter Visit Diagnoses Diagnosis Abdominal pain Abdominal pain, unspecified site documented in this encounter Advance Directives Documents on File Type Date Recorded Patient Media Director Expl anation POLST 05/06/2018 POLST Latest [...] the patient have Health Care Power of Cribbing Setter? No Code Status History Code Status [...] the patient have Health Care Power of Cribbing Setter? No Full Code 02/01/2010 4:02 PM 02/02/2010 4:09 PM This order reflects the patients wishes and were consensually agreed upon. Question Answer Comments Discussion of Advance Directives occurred with: Not Discussed Does the patient have a Living Will? No Does the patient have Health Care Power of Cribbing Setter? No Healthcare Agents on File Name Relationship Healthcare Agent [facility] Communication Carolyn Goldmandrewnabila Adult Child Health Care Agent Care Teams Rigging Loft Mechanic Relationship Specialty Start Date End Date Carmen Sifuentes MD [address] [place] [address] PCP - General Family Medicine 07/16/17 documented as of this encounter
--- OUTSIDE RECORDS SUMMARY | 2023-05-17 12:20 | External Medical Summary | Summary of Care ---
Author Name Unknown Organization [facility] Address [address] [place] [address] Phone [phone] Care Team Providers Care Fish Conservationist Name Role Phone Brian Domínguez MD Primary Care Provider +1- [phone] Encounter Details Date Type Department Care Team Description 12/12/2022 Orders Only [facility] [place] [address] [place], [place] [id number] Lashay Blevins PA-C [address] [place], [place] [id number] Dysuria* Allergies Active Allergy Reactions Severity Noted Date [...] Active venlafaxine XR (EFFEXOR XR) 150 MG CM51Vpyymafqtai:Dep ression Take 1 Cap by mouth daily. With food. 30 Cap 5 09/02/2016 Active Additional Information Patient taking differently: 225 mgOral Daily(AM), With food.,Indications: Takes 225 mg total every morning with food (150 mg tab + 75 mg tab), Reported on 06/24/2022 Blood Glucose Monitoring Suppl (Adjug-BiondVax GLUCOMETER) w/Device KITIndications:Unco ntrolled type 2 diabetes mellitus without complication, without long-term current use of insulin Use as directed. Use as directed once daily 1 Kit 0 11/18/2017 Active Blood Glucose Monitoring Suppl ([employer]IO) w/Device KIT Use as directed. Use as directed. 1 Kit 0 10/31/2018 Active Spacer/Aero-Holding Chambers WISAM Use with inhaler. Wheezing/bronchitis . 1 Device 0 04/08/2019 Active Quartics DelMeetingSprout Lancets 33G MISC USE UP TO FOUR TIMES A DAY Dx:E11.4 100 Each 5 09/30/2019 Active Lancet Devices ([employer]TOUCH DELICA LANCING DEV) MISC Use four times [...] 238 g 0 03/19/2022 Active UltiCare Pen Hop Bottom 31G X 5 MM (Insulin Pen Needle) USE ONE NEEDLE TWICE DAILY 200 Each 3 04/03/2022 Active Insulin Glargine Solostar 100 UNIT/ML Subcutaneous Solution Pen-injector (Basaglar KwikPen)Indications :Type 2 diabetes mellitus with diabetic neuropathy, with long-term current use of insulin ([facility]) Inject 30 units under the skin twice daily 45 mL 3 04/16/2022 Active Insulin Glargine Solostar 100 UNIT/ML Subcutaneous Solution Pen-injector (NEST Fragrancesaglar KwikPen)Indications :Type 2 diabetes mellitus with diabetic neuropathy, with long-term current use of insulin ([facility]) Inject 30 units under the [...] Respimat 2.5 MCG/ACT Inhalation Aerosol Solution (Tiotropium [place] Monohydrate) Inhale by mouth 2 Puffs in [...] Oral Tablet (Demadex)Indication s:Atherosclerotic heart disease of [place] coronary artery with other forms of angina [...] 06/05/2022 Active Vitamin D (Ergocalciferol) 1.25 MG (87631 UT) Oral Capsule (Drisdol)Indication s:Vitamin D deficiency [...] or chew 50 Capsule 0 07/10/2022 Active Live Matrix Disposable Nebulizer Kit Use as directed 1 [...] DAILY 60 Capsule 5 08/22/2022 Active Nystatin 757861 UNIT/ML Mouth/Throat Suspension Swish and swallow 5 [...] mg daily Atherosclerotic heart diseas e of [place] coronary artery with other forms of angina pectoris 11/15/2021 Last Assessment & Plan: Stable. No angina -continue toprol, ASA and statin Seasonal allergies 11/15/2021 Recurrent UTI 10/07/2021 Last Assessment & Plan: Followed by urology Pt is supposed to be on methenamine--will need to clarify with dgt that she is giving this. 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 Anxiety 08/05/2017 Cnzlmfh-Rqekj-Byuny disease 06/27/2015 Last Assessment & Plan: Frequent [...] 05/06/2018 019 Atherosclerotic heart diseas e of [place] coronary artery with other forms of angina [...] 10/31/201008/08 Acute coronary syndrome 10/30/2010 01/22/20 14 [place] Research Other*[id number] 02/02/2010 04/18/2014 Overview: [place] Registry, Dr Joel CASAS Obesity, morbid (more [...] [facility] Lashay Blevins PA-C [address] [place] [address] Beverly Lozoya, [address] [place] [phone] 12/27/2022 Cardiac Studies Cardiac Studies 12/30/2022 Telemedicine Pharmacy [facility] [address] [place] [address] 01/13/2023 Office Visit Cardiology Sobia Brewster PA-C [address] [place] [address] 01/22/2023 Office Visit Infectious Disease Vidya Fabian MD [address] [place] [address] 04/09/2023 Office Visit Urology Alfredo Panda MD [address] [place] [address] 04/28/2023 Office Visit Family Medicine Brian Domínguez MD [address] [place] [address] 05/09/2023 Office Visit Gastroenterology Wendy Frias DO [address] [place] [address] Scheduled Orders Name Type Priority Associated Diagnoses Orde r Schedule URINALYSIS, REFLEX TO CULTURE (NOT FOR NEUTROPENIC PATIENTS) Lab Routine Dysuria Expected: 12/12/2022, Expires: 12/13/2023 Scheduled Procedures Name Priority Associated Diagnoses Date/Ti [...] Additional history exists CKD PHOS USE SMARTSET 08354 10/24/202310/05, 02/18/2022, 02/17/2022, Additional history exists TSH 10/24/2023 10/23/2022, 02/05, 09/24/2021, Additional history exists CKD HGB USE SMARTSET 98351 11/22/202311/21, 11/21/2022, 04/25/2022, Additional history exists Colonoscopy [...] this encounter Medical Devices Implanted Type Area Planning Lead Device Identifier Shelf Expiration Date Model / Serial / Lot Sut Bob 6 [id number] - [id number] Implanted:Qty: 1 on 02/15/2011 at OR [facility] [place] N/A: Chest DO NOT USE 07/21/2015 [id number] / / [id number] documented as of this encounter Visit Diagnoses Diagnosis Dysuria- Primary documented in this encounter Advance Directives Documents on File Type Date Recorded 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 No Code Status History Code Status Date [...] the patient have Health Care Power of Cone Marker? No Full Code 02/01/2010 4:02 PM 02/02/2010 4:09 PM This order reflects the patients wishes and were consensually agreed upon. Question Answer Comments Discussion of Advance Directives occurred with: Not Discussed Does the patient have a Living Will? No Does the patient have Health Care Power of Cone Marker? No Healthcare Agents on File Name Relationship Healthcare Agent [facility] Communication Carolyn Elio Adult Child Health Care Agent Care Teams Fish Conservationist Relationship Specialty Start Date End Date Brian Domínguez MD [address] [place] [address] PCP - General Family Medicine 07/16/17 documented as of this encounter
--- OUTSIDE RECORDS SUMMARY | 2023-05-17 12:20 | External Medical Summary | Summary of Care ---
Author Name Unknown Organization [facility] Address [address] [place] [address] Phone [phone] Care Team Providers Care Barkeeper Name Role Phone Brian Domínguez MD Primary Care Provider [phone] Reason for Visit * Reason Comments Urinary Tract Infection Symptoms Edema L leg Encounter Details Date Type Department Care Team Description 12/13/2022 Convenient Care Visit [facility] [address] [address] Andie Beaver PA-C [address] [facility] [place] [address] UTI symptoms*; Lower leg edema Allergies Active Allergy Reactions Severity Noted Date Comments Propoxyphene Hcl Rash Low 10/29/2010 Fentanyl Diarrhea Low 04/26/2010 anxiety Methocarbamol Medium 10/05/2020 Other reaction(s): Delirium Methocarbamol Low 04/15/2007 Zolpidem Low 10/05/2020 Other reaction(s): Confusion documented as of this encounter (statuses as of 12/13/2022) Medications Medication Sig Dispensed Refills Start Date End Date Status ARIPiprazole (ABILIFY) 2 MG Tablet Take 1 Tablet by mouth in the morning. 0 2015 Active venlafaxine XR (EFFEXOR XR) 150 MG [id number]:Dep ression Take 1 Cap by mouth daily. [...] 0 11/18/2017 Active Blood Glucose Monitoring Suppl (Curious Sense VERIO) w/Device KIT Use as directed. Use as directed. 1 Kit 0 10/31/2018 Active Spacer/Aero-Holding Chambers WISAM Use with inhaler. Wheezing/bronchitis . 1 Device 0 04/08/2019 Active [employer] Lancets 33G MISC USE UP TO FOUR TIMES A DAY Dx:E11.4 100 Each 5 09/30/2019 Active Lancet Devices (Precursor EnergeticsTOUCH DELICA LANCING DEV) MISC Use four times [...] 238 g 0 03/19/2022 Active UltiCare Pen [place] 31G X 5 MM (Insulin Pen Needle) USE ONE NEEDLE TWICE DAILY 200 Each 3 04/03/2022 Active Insulin Glargine Solostar 100 UNIT/ML Subcutaneous Solution Pen-injector (Ener1aglar KwikPen)Indications :Type 2 diabetes mellitus with diabetic neuropathy, with long-term current use of insulin ([facility]) Inject 30 units under the skin twice daily 45 mL 3 04/16/2022 Active Insulin Glargine Solostar 100 UNIT/ML Subcutaneous Solution Pen-injector (Ener1aglar KwikPen)Indications :Type 2 diabetes mellitus with diabetic neuropathy, with long-term current use of insulin ([facility]) Inject 30 units under the skin twice [...] Respimat 2.5 MCG/ACT Inhalation Aerosol Solution (Tiotropium [place] Monohydrate) Inhale by mouth 2 Puffs in the morning. 4 g 3 04/25/2022 Active Estradiol 0.1 MG/GM Vaginal Cream Administer into the vagina 1 g in the morning. 42.5 g 12 05/07/2022 Active OneTouch Verio In Vitro Strip (Glucose Blood)Indications:T ype 2 diabetes mellitus with diabetic neuropathy, with long-term current use of insulin ([facility]) USE TO CHECK BLOOD SUGAR THREE TIMES A DAY 300 Strip 1 05/11/2022 Active Torsemide 20 MG Oral Tablet (Demadex)Indication s:Atherosclerotic heart disease of [place] coronary artery with other forms of angina [...] 06/05/2022 Active Vitamin D (Ergocalciferol) 1.25 MG (11344 UT) Oral Capsule (Drisdol)Indication s:Vitamin D deficiency [...] DAILY 60 Capsule 5 08/22/2022 Active Nystatin 522126 UNIT/ML Mouth/Throat Suspension Swish and swallow 5 [...] 20 Capsule 0 12/13/2022 12/24/19 23 Active Hospital, Clinic, or Other Facility [...] as of this encounter (statuses as of 12/13/2022) Active Problems Problem Noted Date Hypertensive heart and kidne y disease with chronic diastolic congestive heart failure and stage 3a chronic kidney disease 12/28/2021 Last Assessment & Plan: Euvolemic, BP stable EF 55% 09/25 GFR 69 02/25 -Continue Torsemide 20 mg BID, Spironolactone 25 mg BID, Tropol XL 50 mg daily Atherosclerotic heart diseas e of [place] coronary artery with other forms of angina pectoris 11/15/2021 Last Assessment & Plan: Stable. No angina -continue toprol, ASA and statin Seasonal allergies 11/15/2021 Recurrent UTI 10/07/2021 Last Assessment & Plan: Followed by urology Pt is supposed to be on methenamine--will need to clarify with dgt that she is giving this. 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 Anxiety 08/05/2017 Cjbvosa-Jutsu-Qvejg disease 06/27/2015 Last Assessment & Plan: Frequent [...] as of this encounter (statuses as of 12/13/2022) Resolved Problems Problem Noted Date Resolved Date [...] 05/06/2018 019 Atherosclerotic heart diseas e of [place] coronary artery with other forms of angina [...] 10/31/201008/08 Acute coronary syndrome 10/30/2010 01/22/20 14 [facility] Other*[id number] 02/02/2010 04/18/2014 Overview: [facility], Dr Althea Kwon PI Obesity, morbid (more than 1 [...] as of this encounter (statuses as of 12/13/2022) Immunizations Name Administration Dates Next Due COVID-19 [...] Passive Smoke Exposure: Past Smokeless Tobacco: Never Tobacco Cessation:Counseling Given: Not Answered Comments:Parents and then smoked Alcohol Use Standard Drinks/Week Comments No [...] Sign Reading Time Taken Comments Blood Pressure 110/68 12/13/2022 12:07 PM EDT Pulse 84 12/13/2022 12:07 PM EDT Temperature 36.6 C (97.9 F) 12/13/2022 12:07 PM E DT Respiratory Rate - - Oxygen Saturation 94% 12/13/2022 12:07 PM EDT Inhaled Oxygen Concentration - - Weight - - Height - - Body Mass Index - - documented in this encounter Progress Notes * Andie Beaver PA-C - 12/13/2022 12:29 PM EDT Angelina Ballard is a 72 year old year old female who presents for : Chief Complaint Patient presents with Urinary Tract Infection Symptoms Edema L leg HPI: Pt here c/o 2 weeks of urinary complaints, burning, frequency, Some nausea, 3 days ago had 101F temp, then improved to 99.4F. no vomiting. She takes zofran for nausea. +hx of recurrent UTIs in the past. Pt also here c/o left leg/foot swelling. Pt has been seen for this from before by PCP, she states they didn't know what it was from. Symptoms for months per pt. [employer] Programs Director has noted leg swelling has been off and on x 3 weeks. Pt states she took a 2nd torsemide for her swelling in the past and once took 3 tabs. She is on spironolactone and torsemide. Follows with cardiology for hypertensive heart disease with chronic diastolic congestive heart failure. She denies change in recent breathing, CP. REVIEW OF SYSTEMS: See HPI for pertinent positives and negatives. Patient denies addtional complaints. PAST MEDICAL HISTORY: Past Medical History: Diagnosis Date ASCVD (arteriosclerotic cardiovascular disease) Bipolar 1 disorder (HCC) Sees Dr. Cooper Chronic coronary artery disease CHRONIC UTI (Klebsiella) 02/04/2005 referred to Urology. Diabetic gastroparesis (HCC) 04/28/2019 DM type 2, goal A1c below 7 05/04/2004 diet controlled, 03/07/05 hgba1c 5.4 Dyslipidemia, goal LDL below 160 HTN, goal to be determined Hypothyroidism Morbid obesity, BMI not known (HCC) 05/25/[address] Portillo 04/10. GONZALEZ (nonalcoholic steatohepatitis) OCD (obsessive compulsive disorder) Sees Dr. Cooper Phlebitis and thrombophlebitis Seasonal allergies 11/15/2021 Past Surgical History: Procedure Laterality Date ANESTHESIA, HEART CATHETERIZATION 06/04/12 at [facility] ARTHROPLASTY KNEE TOTAL right CABG, ARTERIAL, SINGLE 02/15/2011 CORONARY ARTERY BYPASS GRAFT USING ARTERY 1 GRAFT performed by TIERNEY GUERRERO at [place] [facility] CATHETERIZE LEFT HEART THRU SKIN 04/11/09 LEFT HEART CATH, PERCUTANEOUS performed by GINGER FISHER at [facility] CATHETERIZE LEFT HEART THRU SKIN 02/01/2010 LEFT HEART CATH, PERCUTANEOUS performed by ALTHEA KWON at [facility] CATHETERIZE LEFT HEART THRU SKIN 04/03/2010 LEFT HEART CATH, PERCUTANEOUS performed by GARCIA SOSA at [facility] COLONOSCOPY, DIAGNOSTIC (RECTUM) 05/20/2014 normal, repeat 10 yrs/done @ [facility] CORONARY ANGIOGRAPHY W/LEFT HEART CATH 10/29/2010 CORONARY ANGIOGRAPHY W/LEFT HEART CATH performed by ANNIE SEVILLA at [facility] EGD, FLEXIBLE, DIAGNOSTIC 12/05/2017 portal hypertensive gastropathy/[facility] EGD, FLEXIBLE, DIAGNOSTIC 10/25/2022 ESOPHAGOGASTRODUODENOSCOPY (EGD), FLEXIBLE, TRANSORAL, DIAGNOSTIC performed by Raghavendra Medrano MD at ENDOSCOPY [facility] EGD, W/ENDOSCOPIC US 06/26/2011 UPPER GI ENDOSCOPY ENDOSCOPIC ULTRASOUND performed by RACHEL BAHENA at [facility] OTHER nerve biopsy right calf REMOVAL OF APPENDIX REMOVE ADDED SPINE LAMINA, 1 SEG 07/14 Dr. Saleem L4-L5 REMOVE GALLBLADDER TOTAL ABD HYSTERECTOMY W/WO REMOVAL OF TUBE(S) Social History Tobacco Use Smoking status: Never Passive exposure: Past Smokeless tobacco: Never Tobacco comments: Parents and then smoked Substance Use Topics Alcohol use: No Vaping/E-Cigarette Use Vaping/E-Cigarette Use Never User Vaping/E-Cigarette Substances Vaping/E-Cigarette Devices Patient Active Problem List Diagnosis Code PERONEAL MUSCLE ATROPHY G60.0 Gastroesophageal reflux disease without esophagitis K21.9 S/P angioplasty with stent Z95.820 Dyslipidemia, goal LDL below 70 E78.5 Hypothyroidism E03.9 GONZALEZ (nonalcoholic steatohepatitis) K75.81 Bipolar I disorder, most recent episode depressed, moderate (HCC) F31.32 HTN, goal below 130/80 I10 MEDICATION USE AGREEMENT TE8786 Oxwrgjs-Gifit-Rswrf disease G60.0 Anxiety F41.9 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, T40.601A Hypertensive heart disease with chronic diastolic congestive heart failure (HCC) I11.0, I50.32 Fatty liver K76.0 Chronic liver disease and cirrhosis ([facility]) K74.60, K76.9 Portal hypertensive gastropathy (HCC) K76.6, K31.89 Moderate aortic stenosis I35.0 Type 2 diabetes mellitus with diabetic neuropathy ([facility]) E11.40 Diabetic gastroparesis (HCC) E11.43, K31.84 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 ([facility]) Z79.4 Pelvic pain R10.2 Urge incontinence N39.41 Type 2 diabetes mellitus with diabetic neuropathy, with long-term current use of insulin (HCC) E11.40, Z79.4 Type 2 diabetes mellitus with stage 3a chronic kidney disease, with long- term current use of insulin ([facility]) E11.22, N18.31, Z79.4 Recurrent UTI N39.0 Atherosclerotic heart disease of [place] coronary artery with other forms of angina pectoris ([facility]) I25.118 Seasonal allergies J30.2 Hypertensive heart and kidney disease with chronic diastolic congestive heart failure and qnkwz0m chronic kidney disease (HCC) I13.0, I50.32, N18.31 Family History Problem Relation Age of Onset Heart Disorder Mother angina Heart Disorder Father OR @ 50's No Known Problems Brother Heart disease Brother Alcohol and Other Disorders Associated Brother Alcoholism Review of patient's allergies indicates: Allergen Reactions Methocarbamol Other reaction(s): Delirium Darvon [Propoxyphene Hcl] Rash Fentanyl Diarrhea anxiety Robaxin [Methocarbamol] Zolpidem Other reaction(s): Confusion Current Outpatient Medications Medication Sig Dispense Refill ARIPiprazole (ABILIFY) 2 MG Tablet Take 1 Tablet by mouth in the morning. 0 venlafaxine XR (EFFEXOR XR) 150 MG CP24 Take 1 Cap by mouth daily. With food. (Patient taking differently: Take 225 mg by mouth in the morning. With food..) 30 Cap 5 Blood Glucose Monitoring Suppl (D-Adhesive[employer]co GLUCOMETER) w/Device KIT Use as directed. Use as directed once daily 1 Kit 0 Blood Glucose Monitoring Suppl (Curious Sense VERIO) w/Device KIT Use as directed. Use as directed. 1 Kit 0 Spacer/Aero-Holding Chambers WISAM Use with inhaler. Wheezing/bronchitis. 1 Device 0 CEL-SCI Lancets 33G MISC USE UP TO FOUR TIMES A DAY Dx:E11.4 100 Each 5 Lancet Devices (Fungos LANCING DEV) MISC Use four times a [...] by mouth every morning. 30 Tablet 5 Polyethylene Glycol 3350 17 GM/SCOOP Oral Powder (Miralax) USE 1/2 OF BOTTLE IN 32 OUNCES OF GATORADE THE DAY BEFORE AND THE DAY OF PROCEDURE DIRECTED 238 g 0 UltiCare Pen [place] 31G X 5 MM (Insulin Pen Needle) [...] Respimat 2.5 MCG/ACT Inhalation Aerosol Solution (Tiotropium [place] Monohydrate) Inhale by mouth 2 Puffs in [...] g 3 Vitamin D (Ergocalciferol) 1.25 MG (67388 UT) Oral Capsule (Drisdol) TAKE ONE CAPSULE BY MOUTH WEEKLY 12 Capsule 3 Montelukast Sodium 10 MG Oral Tablet (Singulair) TAKE 1 TABLET BY MOUTH ONCE DAILY 90 Tablet 1 Xifaxan 550 MG Oral Tablet (rifAXIMin) TAKE 1 TABLET BY MOUTH TWICE DAILY 60 Tablet 5 Benzonatate 100 MG Oral Capsule (Tessalon Perles) TAKE ONE CAPSULE BY MOUTH THREE TIMES DAILY NEEDED for cough. do not cut, crush or chew 50 Capsule 0 AIRS Disposable Nebulizer Kit Use as directed 1 Kit 0 Spironolactone 50 MG Oral Tablet (Aldactone) Take 1 Tablet by mouth in the morning and 1 Tabletbefore bedtime. 60 Tablet 5 Phenazopyridine HCl 200 MG Oral Tablet (Pyridium) Take 1 Tablet by mouth 3 times a day as needed for Pain, Moderate. After meals for pain with urination 6 Tablet 2 Ipratropium-Albuterol 0.5-2.5 (3) MG/3ML Inhalation Solution (Duoneb) [...] MOUTH TWICE DAILY 60 Capsule 5 Nystatin 402462 UNIT/ML Mouth/Throat Suspension Swish and swallow 5 [...] breakfast and other medications 90 Tablet 3 Current Facility-Administered Medications Medication Dose Route Frequency Provider Last Rate Last Admin Albuterol Sulfate (Proventil) (2.5 MG/3ML) 0.083% inhalation solution 2.5 mg 2.5 mg Nebulizer PRN Melchor Kwon MD Albuterol Sulfate (Proventil) (5 MG/ML) 0.5% *conc* inhalation solution 2.5 mg 2.5 mg NebulizerPRN Melchor Kwon MD Nursing Notes and Vital Signs reviewed. PHYSICAL EXAM: VITALS: BP 110/68 | Pulse 84 | Temp 36.6 C (97.9 F) (Tympanic) | SpO2 94% GENERAL: Patient is alert, well appearing, no obvious distress HEAD: Normocephalic, no masses, lesions, or other abnormalities noted. EYE EXAM: Normal conjunctiva, PERRL and EOM's intact. LUNGS: Normal respiratory rate and normal respiratory effort. No wheeze, rhonchi or rales HEART: +S1S2. Regular. +systolic murmur noted EXTREMITIES: some bilateral LE edema, L>R. Leg tenderness to palpation bilaterally. No erythema,increased warmth. Results for orders placed or performed in visit on 12/13/22 URINALYSIS, POINT OF CARE (ENTER/EDIT) Result Value Ref Range Color, Urine Light Yellow Yellow or Light Yellow Clarity, Urine Slightly Cloudy Clear Glucose, Urine Negative Negative mg/dL Bilirubin, Urine Negative Negative Ketone, Urine Negative Negative mg/dL Specific [place], Urine 1.010 1.003 - 1.030 Blood, Urine Moderate Negative pH, Urine 6.0 5.0 - 7.5 units Protein, Urine Negative Negative mg/dL Urobilinogen, Urine 0.2 0.2 - 1.0 mg/dL Nitrite, Urine Negative Negative Esterase, Urine Large Negative *Note: Due to a large number of results and/or encounters for the requested time period, some results have not been displayed. A complete set of results can be found in Results Review. Assessment: UTI symptoms (Primary) - URINALYSIS, POINT OF CARE (ENTER/EDIT) - CULTURE, URINE, QUANTITATIVE; Future; Expected date: 12/13/2022 - Cefdinir 300 MG Oral Capsule (Omnicef); Take 1 Capsule by mouth in the morning and 1 Capsule before bedtime. Do all this for 10 days. For 10 days.. - CULTURE, URINE, QUANTITATIVE Lower leg edema urine dip in clinic suggestive of UTI. Start cefdinir as above, given in the past and tolerated well. Urine culture sent out, will contact with results once finalized, make changes if indicated. Follow up with PCP as discussed. Leg edema appears to be more chronic. Discussed possible US of LLE, given appearance and intermittent symptoms less likely DVT. Possibly dependent LE edema. Stable appearance in clinic. Pt to follow up with PCP, elevation which does help foot symptoms. Advised not to alter fluid pills outside of given parameters. Pt verbalized understanding. Continue to follow up with cardiology as directed. Andie Beaver PA-C [address] [address] documented in this encounter Nursing Notes * Marva Valenzuela LPN - 12/13/2022 11:59 AM EDT Angelina Ballard is a 72 year old female who presents to walk-in clinic today complaining of Chief Complaint Patient presents with Urinary Tract Infection Symptoms Edema L leg Main Symptoms: swelling and ankle and top of her foot and to her toes are swelling and was painful;did have a broken hip on the L side and then also had a wound on it and went to the wound clinic, they made her aware that she could possibly have a tissue infection and to monitor; did fall about 2 weeks ago, did fall on both sides did have pain but has that all the time; UTI symptoms burning and odor and incontinence, small amounts when she goes Cause: unknown How lon-3 weeks for the swelling off and on and UTI for about 2 weeks Tried: is taking track of her input and output, elevating as well; no OTC medications Pt accompanied by: [employer] Director documented in this encounter Plan of Treatment Upcoming Encounters Date Type Specialty Care Team Description 12/20/2022 Telemedicine [facility] Lashay Blevins PA-C [address] [place] [address] Beverly Lozoya, [address] [place] [address] 12/27/2022 Cardiac Studies Cardiac Studies 12/30/2022 Telemedicine Pharmacy [facility] [address] [place] [address] 01/13/2023 Office Visit Cardiology Sobia Brewster PA-C [address] [facility] [place] [address] 01/22/2023 Office Visit Infectious Disease Vidya Fabian MD [address] [place] [address] 04/09/2023 Office Visit Urology Alfredo Panda MD [address] [place] [address] 04/28/2023 Office Visit Family Medicine Brian Domínguez MD [address] [place] [address] 05/09/2023 Office Visit Gastroenterology Wendy Frias, DO [address] [place] [address] Pending Results Name Type Priority Associated Diagnoses Date /Time CULTURE, URINE, QUANTITATIVE Lab Routine UTI symptoms 12/13/2022 1:01 PM EDT Scheduled Orders Name Type Priority Associated Diagnoses Orde r Schedule CULTURE, URINE, QUANTITATIVE Lab Routine UTI symptoms Expected: 12/13/2022, Expires: 12/14/2023 Scheduled Procedures Name Priority Associated Diagnoses Date/Ti [...] Additional history exists CKD PHOS USE SMARTSET 75319 10/24/202310/05, 02/18/2022, 02/17/2022, Additional history exists TSH 10/24/2023 10/23/2022, 02/05, 09/24/2021, Additional history exists CKD HGB USE SMARTSET 42632 11/22/202311/21, 11/21/2022, 04/25/2022, Additional history exists Colonoscopy [...] this encounter Medical Devices Implanted Type Area Overhead Irrigator Device Identifier Shelf Expiration Date Model / Serial / Lot Sut Bob 6 [id number] - [id number] Implanted:Qty: 1 on 02/15/2011 at [place] [facility] N/A: Chest DO NOT USE 07/21/2015 [id number] / / [id number] documented as of this encounter Procedures Procedure Name Priority Date/Time Associated Diagnosis Comments URINALYSIS, POINT OF CARE (ENTER/EDIT) Routine 12/13/2022 UTI symptoms documented in this encounter Results * URINALYSIS, POINT OF CARE (ENTER/EDIT) (12/13/2022) Color, Urine Light Yellow Yellow or Light Yellow Clarity, Urine Slightly Cloudy Clear Glucose, Urine Negative Negative mg/dL Bilirubin, Urine Negative Negative Ketone, Urine Negative Negative mg/dL Specific [place], Urine 1.010 1.003 - 1.030 Blood, Urine Moderate Negative pH, Urine 6.0 5.0 - 7.5 units Protein, Urine Negative Negative mg/dL Urobilinogen, Urine 0.2 0.2 - 1.0 mg/dL Nitrite, Urine Negative Negative Esterase, Urine Large Negative Urine 12/13/2022 Andie Beaver PA-C LAB POINT OF CAR E TEST ENTER/EDIT ORDERABLES documented in this encounter Visit Diagnoses Diagnosis UTI symptoms- Primary Other symptoms involving urinary system Lower leg edema Edema documented in this encounter Advance Directives Documents on File Type Date Recorded 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 Question Answer Comments Discussion of Advance Directives occurred with: Patient Does the patient have a Living Will? No Does the patient have Health Care Power of Hospital Aide? No Code Status History Code Status Date [...] the patient have Health Care Power of Hospital Aide? No Full Code 02/01/2010 4:02 PM 02/02/2010 4:09 PM This order reflects the patients wishes and were consensually agreed upon. Question Answer Comments Discussion of Advance Directives occurred with: Not Discussed Does the patient have a Living Will? No Does the patient have Health Care Power of Hospital Aide? No Healthcare Agents on File Name Relationship Healthcare Agent [facility] p Communication Carolyn Ballard Adult Child Health Care Agent Care Teams Barkeeper Relationship Specialty Start Date End Date Brian Domínguez MD [address] [place] [address] PCP - General Family Medicine 07/16/17 documented as of this encounter"
--- OUTSIDE RECORDS SUMMARY | 2023-05-17 12:20 | External Medical Summary | Summary of Care ---
Author Name Unknown Organization [facility] Address [address] [facility] [place] [address] Phone [phone] Care Team Providers Care Performance Test Engineer Name Role Phone Brian Dmoínguez MD Primary Care Provider [phone]- [phone] Reason for Referral * Evaluate & Treat - Unlimited Visits (Within 10 days (routine)) - Authorized Specialty Diagnoses / Procedures Referred By Mitchell chavez Referred To Contact Quartz Miner Diagnoses Self-care deficit Generalized weakness Recurrent UTI Lashay Blevins PA-C [address] [place] [address] Referral ID Status Reason Start Date Expiration Date Visits Requested Visits Authorized [id number] Authorized Specialty Services Required 12/12/[phone] Question Answer Referral Priority Within 10 days (routine) Role Community Health/Case Management Assistants [facility] Health/Disability Examiner Referral Reason Home Visit Comments Is patient being transitioned from [facility] to Complex Case Management? No Reason for Visit * Reason Onset Date Comments [facility]: Maintenance 12/12/2022 Encounter Details Date Type Department Care Team Description 12/12/2022 Telephone [facility], [facility] [address] [place] [address] [facility], Nurse [address] [place] [address] [facility]: Maintenance Allergies Active Allergy [...] Active venlafaxine XR (EFFEXOR XR) 150 MG [id number]:Dep ression Take 1 Cap by mouth daily. [...] 0 11/18/2017 Active Blood Glucose Monitoring Suppl (Gatekeeper System VERIO) w/Device KIT Use as directed. Use [...] 238 g 0 03/19/2022 Active UltiCare Pen [place] 31G X 5 MM (Insulin Pen Needle) USE ONE NEEDLE TWICE DAILY 200 Each 3 04/03/2022 Active Insulin Glargine Solostar 100 UNIT/ML Subcutaneous Solution Pen-injector (Basaglar KwikPen)Indications :Type 2 diabetes mellitus with diabetic neuropathy, with long-term current use of insulin ([facility]) Inject 30 units under the skin twice daily 45 mL 3 04/16/2022 Active Insulin Glargine Solostar 100 UNIT/ML Subcutaneous Solution Pen-injector (Basaglar KwikPen)Indications :Type 2 diabetes mellitus with diabetic neuropathy, with long-term current use of insulin ([facility]) Inject 30 units under the [...] Respimat 2.5 MCG/ACT Inhalation Aerosol Solution (Tiotropium [place] Monohydrate) Inhale by mouth 2 Puffs [...] Oral Tablet (Demadex)Indication s:Atherosclerotic heart disease of [place] coronary artery with other forms of [...] 06/05/2022 Active Vitamin D (Ergocalciferol) 1.25 MG (42435 UT) Oral Capsule (Drisdol)Indication s:Vitamin D deficiency [...] DAILY 60 Capsule 5 08/22/2022 Active Nystatin 842806 UNIT/ML Mouth/Throat Suspension Swish and swallow 5 [...] mg daily Atherosclerotic heart diseas e of [place] coronary artery with other forms of angina pectoris 11/15/2021 Last Assessment & Plan: Stable. No angina -continue toprol, ASA and statin Seasonal allergies 11/15/2021 Recurrent UTI 10/07/2021 Last Assessment & Plan: Followed by urology Pt is supposed to be on methenamine--will need to clarify with dgt that she is giving this. 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 Carolyn is f/u on order for U/A. Daughter expresses her confusion about [facility] and who is taking care of pt. Daughter has been calling PCP and [facility] and is not sure anymore who to call because she is told that pt is not a [facility] pt. Daughter has tremendous respect for Lashay Long and feels confident in her mgmt of the pt. Daughter is asking for assistance of a CM to help with pt care as well. She is stressed. She sounds overwhelmed with what appears to her to be difficulty getting results for her mom. Daughter made aware that order for U/A is placed and she can obtain the speciment and get it to thelab. I instructed her to call the [facility] phone number for anything she feels pt needs for her care. [facility] canroute messages to Lashay Johnston. Routing to Lashay Johnston for further recommendations or comment. Attached order for CM assistance, if appropriate for this pt, please review. Deann Amaya RN [facility] Intake Triage Coordinator [phone] documented in this encounter Plan of Treatment Upcoming Encounters Date Type Specialty Care Team Description 12/20/2022 Telemedicine [facility] Lashay Blevins PA-C [address] [place] [address] [address] [place] [address] 12/27/2022 Cardiac Studies Cardiac Studies 12/30/2022 Telemedicine Pharmacy [facility] [address] [place] [address] 01/13/2023 Office Visit Cardiology Sobia Brewster PA-C [address] [place] [address] 01/22/2023 Office Visit Infectious Disease Vidya Fabian MD [address] [place] [address] 04/09/2023 Office Visit Urology Alfredo Panda MD [address] [place] [address] 04/28/2023 Office Visit Family Medicine Brian Domínguez MD [address] [place] [address] 05/09/2023 Office Visit Gastroenterology Wendy Frias DO [address] [place] [address] Scheduled Procedures Name Priority Associated Diagnoses Date/Ti me COLONOSCOPY FLEXIBLE PROXIMA L DIAGNOSTIC Recall Special screening for malignant neoplasms, colon Scheduled Referrals Name Type Priority Associated Diagnoses Orde r Schedule POPULATION HEALTH REFERRAL OP Referral Within 10 days (routine) Self-care deficit Generalized weakness Recurrent UTI Ordered: 12/12/2022 Health Maintenance Due Date Last Done Comments [...] Additional history exists CKD PHOS USE SMARTSET 13669 10/24/202310/05, 02/18/2022, 02/17/2022, Additional history exists TSH 10/24/2023 10/23/2022, 02/05, 09/24/2021, Additional history exists CKD HGB USE SMARTSET 69059 11/22/202311/21, 11/21/2022, 04/25/2022, Additional history exists Colonoscopy [...] this encounter Medical Devices Implanted Type Area Clinical Psychologist Private Practice Device Identifier Shelf Expiration Date Model / Serial / Lot Sut Bob 6 [id number] - [id number] Implanted:Qty: 1 on 02/15/2011 at OR [facility] [place] N/A: Chest DO NOT USE 07/21/2015 [id number] / / [id number] documented as of this encounter Visit Diagnoses Diagnosis Self-care deficit- Primary Generalized weakness Other malaise and fatigue Recurrent UTI Urinary tract infection, site not specified documented in this encounter Advance Directives Documents on File Type Date Recorded 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 Question Answer Comments Discussion of Advance Directives occurred with: Patient Does the patient have a Living Will? No Does the patient have Health Care Power of Wind Energy Engineer? No Code Status History Code Status [...] the patient have Health Care Power of Wind Energy Engineer? No Full Code 02/01/2010 4:02 PM 02/02/2010 4:09 PM This order reflects the patients wishes and were consensually agreed upon. Question Answer Comments Discussion of Advance Directives occurred with: Not Discussed Does the patient have a Living Will? No Does the patient have Health Care Power of Wind Energy Engineer? No Healthcare Agents on File Name Relationship Healthcare Agent [facility] Communication Carolyn Ballard Adult Child Health Care Agent Care Teams Performance Test Engineer Relationship Specialty Start Date End Date Brian Domínguez MD [address] [place] [address] PCP - General Family Medicine 07/16/17 documented as of this encounter
--- OUTSIDE RECORDS SUMMARY | 2023-05-17 12:20 | External Medical Summary ---
Author Name Unknown Address Unknown Organization K01:[facility] [address] [place] [address] Laboratory Report Ordering Provider Test Date Status AMY MELCHOR 12/13/2022 13:01:10 Final Observation Date Value Abnormality Reference (Units ) Status Bacteria identified in Unspecified specimen by Culture 12/13/2022 13:01:10 [id number]^PROTEUS MIRABILIS Abnormal Final >100,000 colonies/mL Proteus mirabilis Performing Location [facility] [address] [place] [address] Ordering Provider Test Date Status AMY MELCHOR 12/13/2022 13:01:10 Final Observation Date Value Abnormality Reference (Units ) Status Ampicillin 12/13/2022 13:01:10 >=32 Resistant Final Ampicillin + Sulbactam 12/13/2022 13:01:10 4 Susceptible Final Cefazolin 12/13/2022 13:01:10 <=4 Susceptible Final Cefepime susceptibility 12/13/2022 13:01:10 <=1 Susceptible Final Ceftriaxone suceptibility 12/13/2022 13:01:10 <=1 Susceptible Final Ciprofloxacin 12/13/2022 13:01:10 >=4 Resistant Final Due to serious side effects, the FDA has advised against using Ciprofloxacin to treat uncomplicated UTIs and respiratory tract infections unless there are no alternative treatment options. Gentamicin susceptibility 12/13/2022 13:01:10 <=1 Susc eptible Final Levofloxacin susceptibility 12/13/2022 13:01:10 >=8 Re sistant Final Due to serious side effects, the FDA has advised against using Levofloxacin to treat uncomplicated UTIs and respiratory tract infections unless there are no alternative treatment options. Piperacillin + Tazobactamsusceptibility 12/13/2022 13:01:10 <=4 Susceptible Final TMP-SMZ susceptibility 12/13/2022 13:01:10 40 Suscept ible Final Test: Culture, Urine, Quanti tative
Specimen Source: Urine, Clean Catch
Specimen Type: Urine
Specimen Date: 12/13/2022 1:01 PM
Result Date: 12/16/2022 1:52 PM
Result Status: Final result
Abnormal: Yes
Resulting Lab: [facility]
[address]
[place] [address]

CULTURE

>100,000 colonies/mL Proteus mirabilis (Abnormal)

SUSCEPTIBILITY

Proteus mirabilis
METHOD MICROBROTH
DILUTIONS

AMPICILLIN >=32 Resistant
AMPICILLIN/SULBACTAM 4 Susceptible
CEFAZOLIN <=4 Susceptible
CEFEPIME <=1 Susceptible
CEFTRIAXONE <=1 Susceptible
CIPROFLOXACIN >=4 Resistant [1]
GENTAMICIN <=1 Susceptible
LEVOFLOXACIN >=8 Resistant [2]
PIPERACILLIN TAZOBACTAM <=4 Susceptible
TRIMETH/SULFAMETHOXAZOLE 40 Susceptible

[1] Due to serious side effects, the FDA has advised against using
Ciprofloxacin to treat uncomplicated UTIs and respiratory tract infections
unless there are no alternative treatment options.

[2] Due to serious side effects, the FDA has advised against using
Levofloxacin to treat uncomplicated UTIs and respiratory tract infections
unless there are no alternative treatment options.

null Performing Location [facility] [place] [address] [facility] [address]
--- OUTSIDE RECORDS SUMMARY | 2023-05-17 12:20 | External Medical Summary | Summary of Care ---
Author Name Unknown Organization [facility] Address [address] [place] [address] Phone [phone] Care Team Providers Care Second Floor Operator Name Role Phone Brian Domínguez MD Primary Care Provider [phone]- [phone] Reason for Visit * Reason Comments eRx-Medication Refill Encounter Details Date Type Department Care Team Description 12/01/2022 Refill Gastroenterology, [facility] [address] [place] [address] Wendy Butterfield, [address] [place] [address] Gastroesophageal reflux disease without esophagitis Allergies Active Allergy Reactions Severity Noted Date Comments Propoxyphene Hcl Rash Low 10/29/2010 Fentanyl Diarrhea Low 04/26/2010 anxiety Methocarbamol Medium 10/05/2020 Other reaction(s): Delirium Methocarbamol Low 04/15/2007 Zolpidem Low 10/05/2020 Other reaction(s): Confusion documented as of this encounter (statuses as of 12/07/2022) Medications Medication Sig Dispensed Refills Start Date End Date Status ARIPiprazole (ABILIFY) 2 MG Tablet Take 1 Tablet by mouth in the morning. 0 07/11/19 16 Active venlafaxine XR (EFFEXOR XR) 150 MG [id number]:De pression Take 1 Cap by mouth daily. With food. 30 Cap 5 09/02/19 17 Active Additional Information Patient taking differently: 225 mgOral Daily(AM), With food.,Indications: Takes 225 mg total every morning with food (150 mg tab + 75 mg tab), Reported on 06/24/2022 Blood Glucose Monitoring Suppl (TruQu-TestPlant GLUCOMETER) w/Device KITIndications:Unc ontrolled type 2 diabetes mellitus without complication, without long-term current use of insulin Use as directed. Use as directed once daily 1 Kit 0 11/19/19 18 Active Blood Glucose Monitoring Suppl ([employer] w/Device KIT Use as directed. Use as directed. 1 Kit 0 11/01/19 19 Active Spacer/Aero-Holdin g Chambers WISAM Use with inhaler. Wheezing/bronchiti s. 1 Device 0 04/08/20 19 Active famPlus [employer] Lancets 33G MISC USE UP TO FOUR TIMES A DAY Dx:E11.4 100 Each 5 09/30/19 20 Active Lancet Devices (Eat Your KimchiUCH DELICA LANCING DEV) MISC Use four times [...] levemir 100 Each 5 12/12/19 21 Active Dicyclomine HCl 10 MG Oral Capsule (Bentyl)Indication s:Abdominal pain TAKE ONE CAPSULE BY MOUTH FOUR TIMES DAILY NEEDED FOR ABDOMINAL PAIN 120 Capsule 1 06/08/20 21 Active Nitroglycerin 0.4 MG Sublingual Tablet [...] NEEDED FOR NAUSEA 60 Tablet 5 12/29/19 Active Budesonide-Formote rol Fumarate 160-4.5 MCG/ACT Inhalation Aerosol (Symbicort) Inhale by mouth 2 Puffs in the morning AND 2 Puffs before bedtime. 10.2 g 12 02/19/20 Active lamoTRIgine 100 MG Oral Tablet (LaMICtal) Take 1 Tablet by mouth every morning. 30 Tablet 5 03/12/20 Active Levothyroxine Sodium 88 MCG Oral Tablet [...] g 0 03/19/20 22 Active UltiCare Pen [place] 31G X 5 MM (Insulin Pen Needle) USE ONE NEEDLE TWICE DAILY 200 Each 3 04/03/20 22 Active Insulin Glargine Solostar 100 UNIT/ML Subcutaneous Solution Pen-injector (Basaglar KwikPen)Indication s:Type 2 diabetes mellitus with diabetic neuropathy, with long-term current use of insulin ([facility]) Inject 30 units under the skin twice daily 45 mL 3 04/16/20 22 Active Insulin Glargine Solostar 100 UNIT/ML Subcutaneous Solution Pen-injector (Basaglar KwikPen)Indication s:Type 2 diabetes mellitus with diabetic neuropathy, with long-term current use of insulin ([facility]) Inject 30 units under the skin twice [...] 2.5 MCG/ACT Inhalation Aerosol Solution (Tiotropium [place] Monohydrate) Inhale by mouth 2 Puffs [...] Oral Tablet (Demadex)Indicatio ns:Atherosclerotic heart disease of [place] coronary artery with other forms of angina [...] 22 Active Vitamin D (Ergocalciferol) 1.25 MG (86706 UT) Oral Capsule (Drisdol)Indicatio ns:Vitamin D deficiency [...] DAILY 60 Capsule 08/22/19 23 Active Nystatin 013750 UNIT/ML Mouth/Throat Suspension Swish and swallow 5 [...] EVENING 60 Tablet 5 12/08/19 23 Active Pantoprazole Sodium 40 MG Oral [...] as of this encounter (statuses as of 12/07/2022) Active Problems Problem Noted Date Hypertensive heart and kidne y disease with chronic diastolic congestive heart failure and stage 3a chronic kidney disease 12/28/2021 Last Assessment & Plan: Euvolemic, BP stable EF 55% 09/25 GFR 69 02/25 -Continue Torsemide 20 mg BID, Spironolactone 25 mg BID, Tropol XL 50 mg daily Atherosclerotic heart diseas e of [place] coronary artery with other forms of angina [...] 05/06/2018 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 1 [...] as of this encounter (statuses as of 12/07/2022) Immunizations Name Administration Dates Next Due COVID-19 [...] encounter Miscellaneous Notes * Telephone Encounter - Wendy Butterfield DO - 12/07/2022 6:03 PM EDTSigned Prescriptions: Disp Refills Pantoprazole Sodium 40 MG Oral Tablet Judi*60 Tab*5 Sig: TAKE ONE TABLET BY MOUTH IN THE MORNING AND ONE TABLET IN THE EVENING Authorizing Provider: WENDY BUTTERFIELD * Telephone Encounter - Interface, E-Rx Ss Inbound - 12/07/2022 10:30 AM EDT Pending Prescriptions: Disp Refills Pantoprazole Sodium 40 MG Oral Tablet Judi*60 Tab*5 Sig: TAKE ONE TABLET BY MOUTH IN THE MORNING AND ONE TABLET IN THE EVENING * Telephone Encounter - Interface, E-Rx Ss Inbound - 12/05/2022 10:29 AM EDT Pending Prescriptions: Disp Refills Pantoprazole Sodium 40 MG Oral Tablet Judi*60 Tab*5 Sig: TAKE ONE TABLET BY MOUTH IN THE MORNING AND ONE TABLET IN THE EVENING * Telephone Encounter - Jsesica Navarrete [facility] - 12/03/2022 1:15 PM EDTPending Prescriptions: Disp Refills Pantoprazole Sodium 40 MG Oral Tablet Judi*60 Tab*5 Sig: TAKE ONE TABLET BY MOUTH IN THE MORNING AND ONE TABLET IN THE EVENING * Telephone Encounter - Jessica Navarrete [facility] - 12/03/2022 1:14 PM EDT Patient was scheduled to be seen in October. Appointment started, but documentation cannot be seen. Afollow up appt is scheduled for May. Routing request to provider to approve if appropriate until this visit. Pending Prescriptions: Disp Refills Pantoprazole Sodium 40 MG Oral Tablet Judi*60 Tab*5 Sig: TAKE ONE TABLET BY MOUTH IN THE MORNING AND ONE TABLET IN THE EVENING 10/29/2022 (in office), 06/15/2020 (telemedicine) 05/09/2023 If no future appointments scheduled, and last appointment is greater than a year ago, please schedule patient for a follow-up appointment Last date the medication was ordered: 10/26/22 Pharmacy: [id number] [address] [place] Is this request for a controlled substance?No Urine Drug Screen:No results found. However, due to the size of the patient record, not all encounters were searched. Please check Results Review for a complete set of results. Patient Phone Numbers Labs: Lab Results Component Value Date/Time CREAT 1.0 11/18/2022 12:32 PM CREAT 1.13 02/26/2021 12:00 AM CREAT 1.0 07/18/2020 12:20 PM POTASSIUM 4.2 11/18/2022 12:32 PM POTASSIUM 4.0 02/26/2021 12:00 AM POTASSIUM 4.6 [...] 05/22/2020 01:24 PM * Telephone Encounter - Interface, E-Rx Ss Inbound - 12/03/2022 10:29 AM EDT Pending Prescriptions: Disp Refills Pantoprazole Sodium 40 MG Oral Tablet Judi*60 Tab*0 Sig: TAKE ONE TABLET BY MOUTH IN THE MORNING AND ONE TABLET IN THE EVENING documented in this encounter Plan of Treatment Upcoming Encounters Date Type Specialty Care Team Description 12/09/2022 Imaging Radiology 12/17/2022 Telemedicine [facility] Lashay Blevins PA-C [address] [place] [address] Beverly Lozoya, [address] [place] [address] 12/27/2022 Cardiac Studies Cardiac Studies 12/30/2022 Telemedicine [facility] [address] [place] [address] 01/13/2023 Office Visit Cardiology Sobia Brewster PA-C [address] [place] [address] 01/22/2023 Office Visit Infectious Disease Vidya Fabian MD [address] [place] [address] 04/09/2023 Office Visit Urology Alfredo Panda MD [address] [id number] 04/28/2023 Office Visit Family Medicine Brian Domínguez MD [address] [place] [address] 05/09/2023 Office Visit Gastroenterology Wendy Butterfield DO [address] [place] [address] Scheduled Procedures Name Priority Associated Diagnoses Date/Ti [...] Additional history exists CKD PHOS USE SMARTSET 47755 10/24/202310/05, 02/18/2022, 02/17/2022, Additional history exists TSH 10/24/2023 10/23/2022, 02/05, 09/24/2021, Additional history exists CKD HGB USE SMARTSET 17763 11/22/202311/21, 11/21/2022, 04/25/2022, Additional history exists Colonoscopy [...] this encounter Medical Devices Implanted Type Area Sap Analyst Device Identifier Shelf Expiration Date Model / Serial / Lot Jenna Rojas 6 [id number] - [id number] Implanted:Qty: 1 on 02/15/2011 at [place] [facility] [place] N/A: Chest DO NOT USE 07/21/2015 [id number] / / [id number] documented as of this encounter Visit Diagnoses Diagnosis Gastroesophageal reflux disease without esophagitis Esophageal reflux documented in this encounter Advance Directives Documents on File Type Date Recorded 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 Question Answer Comments Discussion of Advance Directives occurred with: Patient Does the patient have a Living Will? No Does the patient have Health Care Power of Glaz[place] Structural Glass? No Code Status History Code Status Date [...] the patient have Health Care Power of Glazier Structural Glass? No Full Code 02/01/2010 4:02 PM 02/02/2010 4:09 PM This order reflects the patients wishes and were consensually agreed upon. Question Answer Comments Discussion of Advance Directives occurred with: Not Discussed Does the patient have a Living Will? No Does the patient have Health Care Power of Glazier Structural Glass? No Healthcare Agents on File Name Relationship Healthcare Agent [facility] Communication Carolyn Ballard Adult Child Health Care Agent Care Teams Second Floor Operator Relationship Specialty Start Date End Date Brian Domínguez MD [address] [place], [place] [phone] PCP - General Family Medicine 07/16/17 documented as of this encounter
--- OUTSIDE RECORDS SUMMARY | 2023-05-17 12:21 | External Medical Summary | Summary of Care ---
Author Name Unknown Organization [facility] Address [address] [place] [address] Phone [phone] Care Team Providers Care Knot Cutter Name Role Phone Brian Domínguez MD Primary Care Provider [phone]- [phone] Reason for Visit * Reason Onset Date Comments Order Request 12/03/2022 Encounter Details Date Type Department Care Team Description 12/03/2022 Telephone [facility] [address] [place] [address] Brian Domínguez MD [address] [place] [address] Order Request Allergies Active Allergy Reactions Severity Noted Date Comments Propoxyphene Hcl Rash Low 10/29/2010 Fentanyl Diarrhea Low 04/26/2010 anxiety Methocarbamol Medium 10/05/2020 Other reaction(s): Delirium Methocarbamol Low 04/15/2007 Zolpidem Low 10/05/2020 Other reaction(s): Confusion documented as of this encounter (statuses as of 12/06/2022) Medications Medication Sig Dispensed Refills Start Date End Date Status ARIPiprazole (ABILIFY) 2 MG Tablet Take 1 Tablet by mouth in the morning. 0 6 Active venlafaxine XR (EFFEXOR XR) 150 MG UH32Sbmalibovko:Dep ression Take 1 Cap by mouth daily. With food. 30 Cap 5 7 Active Additional Information Patient taking differently: 225 mgOral Daily(AM), With food.,Indications: Takes 225 mg total every morning with food (150 mg tab + 75 mg tab), Reported on 06/24/2022 Blood Glucose Monitoring Suppl ([employer] GLUCOMETER) w/Device KITIndications:Unco ntrolled type 2 diabetes mellitus without complication, without long-term current use of insulin Use as directed. Use as directed once daily 1 Kit 0 8 Active Blood Glucose Monitoring Suppl (Redline Trading SolutionsIO) w/Device KIT Use as directed. Use as directed. 1 Kit 0 9 Active Spacer/Aero-Holding Chambers WISAM Use with inhaler. Wheezing/bronchiti s. 1 Device 0 9 Active Drync Del[employer] Lancets 33G MISC USE UP TO FOUR TIMES A DAY Dx:E11.4 100 Each 5 0 Active Lancet Devices (Saladax BiomedicalUCH DELICA LANCING DEV) MISC Use four times [...] with levemir 100 Each 5 1 Active Dicyclomine HCl 10 MG Oral Capsule (Bentyl)Indications :Abdominal pain TAKE ONE CAPSULE BY MOUTH FOUR TIMES DAILY NEEDED FOR ABDOMINAL PAIN 120 Capsule 1 1 Active Nitroglycerin 0.4 MG Sublingual Tablet [...] DAILY DIRECTED 2700 mL 5 2 Active Ondansetron HCl 8 MG Oral Tablet (Zofran)Indications :Nausea TAKE ONE TABLET BY MOUTH EVERY EIGHT HOURS NEEDED FOR NAUSEA 60 Tablet 5 2 Active Budesonide-Formoter ol Fumarate 160-4.5 MCG/ACT Inhalation Aerosol (Symbicort) Inhale by mouth 2 Puffs in the morning AND 2 Puffs before bedtime. 10.2 g 12 2 Active lamoTRIgine 100 MG Oral Tablet (LaMICtal) Take 1 Tablet by mouth every morning. 30 Tablet 5 2 Active Levothyroxine Sodium 88 MCG Oral Tablet (Levoxyl)Indication s:Hypothyroidism TAKE 1 TABLET BY MOUTH ONCE DAILY at least 30 minutes before breakfast and other medications 90 Tablet 3 2 Active Polyethylene Glycol 3350 17 GM/SCOOP Oral Powder (Miralax) USE 1/2 OF BOTTLE IN 32 OUNCES OF GATORADE THE DAY BEFORE AND THE DAY OF PROCEDURE DIRECTED 238 g 0 2 Active UltiCare Pen Isabella 31G X 5 MM (Insulin Pen Needle) USE ONE NEEDLE TWICE DAILY 200 Each 3 2 Active Insulin Glargine Solostar 100 UNIT/ML Subcutaneous Solution Pen-injector (Basaglar KwikPen)Indications :Type 2 diabetes mellitus with diabetic neuropathy, with long-term current use of insulin ([facility]) Inject 30 units under the skin twice daily 45 mL 3 2 Active Insulin Glargine Solostar 100 UNIT/ML Subcutaneous Solution Pen-injector (Basaglar KwikPen)Indications :Type 2 diabetes mellitus with diabetic neuropathy, with long-term current use of insulin ([facility]) Inject 30 units under the [...] Respimat 2.5 MCG/ACT Inhalation Aerosol Solution (Tiotropium Kingsley Monohydrate) Inhale by mouth 2 Puffs in [...] Oral Tablet (Demadex)Indication s:Atherosclerotic heart disease of [place] coronary artery with other forms of angina [...] 2 Active Vitamin D (Ergocalciferol) 1.25 MG (53277 UT) Oral Capsule (Drisdol)Indication s:Vitamin D deficiency TAKE ONE CAPSULE BY MOUTH WEEKLY 12 Capsule 3 2 Active Montelukast Sodium 10 MG Oral Tablet (Singulair)Indicati ons:Nasal sinus congestion,PND (post-nasal drip) TAKE 1 TABLET BY MOUTH ONCE DAILY 90 Tablet 1 2 Active Xifaxan 550 MG Oral Tablet (rifAXIMin)Indicati ons:GONZALEZ (nonalcoholic steatohepatitis),Ch ronic liver disease and cirrhosis (HCC),Hepatic encephalopathy (HCC) TAKE 1 TABLET BY MOUTH TWICE DAILY 60 Tablet 5 2 Active Benzonatate 100 MG Oral Capsule [...] before bedtime. 60 Tablet 5 3 Active Phenazopyridine HCl 200 MG Oral Tablet (Pyridium) Take 1 Tablet by mouth 3 times a day as needed for Pain, Moderate. After meals for pain with urination 6 Tablet 2 3 Active Ipratropium-Albuter ol 0.5-2.5 (3) MG/3ML [...] DAILY 60 Capsule 5 3 Active Nystatin 118844 UNIT/ML Mouth/Throat Suspension Swish and swallow 5 [...] the evening every day 0 3 Active Pantoprazole Sodium 40 MG Oral Tablet Delayed Release (Protonix)Indicatio ns:Gastroesophageal reflux disease without esophagitis TAKE ONE TABLET BY MOUTH IN THE MORNING AND ONE TABLET IN THE EVENING 60 Tablet 0 3 Active metFORMIN HCl ER 500 [...] 3 Active levoFLOXacin 500 MG Oral Tablet Take 1 Tablet by mouth in the morning for 10 days. until gone.. 10 Tablet 0 3 12/10/19 23 Active Potassium Chloride Mag ER 20 MEQ Oral Tablet Extended Release TAKE ONE TABLET BY MOUTH IN THE MORNING. to use when taking additional torsemide 30 Tablet 0 3 12/04/19 23 Discontinu ed(Refill) Hospital, Clinic, or Other [...] as of this encounter (statuses as of 12/06/2022) Active Problems Problem Noted Date Hypertensive heart and kidne y disease with chronic diastolic congestive heart failure and stage 3a chronic kidney disease 12/28/2021 Last Assessment & Plan: Euvolemic, BP stable EF 55% 09/25 GFR 69 02/25 -Continue Torsemide 20 mg BID, Spironolactone 25 mg BID, Tropol XL 50 mg daily Atherosclerotic heart diseas e of [place] coronary artery with other forms of angina pectoris 11/15/2021 Last Assessment & Plan: Stable. No angina -continue toprol, ASA and statin Seasonal allergies 11/15/2021 Recurrent UTI 10/07/2021 Last Assessment & Plan: Followed by urology Pt is supposed to be on methenamine--will need to clarify with dgt that she is giving this. 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/2014 intermediate frame tender current use of anticoagulant therapy 1 [...] as of this encounter (statuses as of 12/06/2022) Immunizations Name Administration Dates Next Due COVID-19 [...] encounter Miscellaneous Notes * Telephone Encounter - Cheryl Mark RPh - 12/06/2022 10:38 AM EDT Received multiples of requests for this- some from [employer] and others from [employer]. Filling out the request from [employer], and shredding the ones from [employer]. Successful fax confirmation received. Cheryl Mark, PharmD Clinical Pharmacist Medication Therapy Disease Management 12/06/2022, 10:39 AM * Telephone Encounter - DENG Alvarado - 12/06/2022 10:08 AM EDT Did you receive this paperwork? * Telephone Encounter - DENG Burkett - 12/06/2022 9:43 AM EDT Received a call asking if fax was received by office. Name/Company sending fax: [employer] What fax is pertaining to: [employer] Date(s) they sent request: 12/04/22- resending today Verified fax number they are sending to is correct (Y or N): y Callback Number for the clinic to call to verified if fax was received: [phone] * Telephone Encounter - Angie Castro RPh - 12/05/2022 2:09 PM EDT No RPh in [facility] office today. Routing to check for paperwork tomorrow when RPh returns. Angie Castro RPh, PharmMeghan Clinical Pharmacist - Commissioned Defence [employer] Officer Medication Therapy Disease Management Clinic 12/05/2022, 2:09 PM Ph.[phone] * Telephone Encounter - DENG Canales - 12/05/2022 10:19 AM EDT Received a call asking if fax was received by office. Name/Company sending fax: [employer] / [employer] What fax is pertaining to: [employer] Date(s) they sent request: 11-26-22, 11-29-22, 12-03-22, 12-04-22. Verified fax number they are sending to is correct (Y or N): Yes, Main & Private Callback Number for the clinic to call to verified if fax was received: [phone] * Telephone Encounter - Cheryl Mark RPh - 12/03/2022 1:54 PM EDT Will complete once form received. Thanks, Cheryl Mark PharmD Clinical Pharmacist Medication Therapy Disease Management 12/03/2022, 1:54 PM * Telephone Encounter - DENG Shaffer - 12/03/2022 10:25 AM EDT order request for a free style kelton is being sent to the office to please complete documented in this encounter Plan of Treatment Upcoming Encounters Date Type Specialty Care Team Description 12/09/2022 Imaging Radiology 12/17/2022 Telemedicine [facility] Lashay Blevins PA-C [address] [place] [address] Beverly Lozoya, [address] [place] [address] 12/27/2022 Cardiac Studies Cardiac Studies 12/30/2022 Telemedicine Pharmacy [facility] [address] [place] [address] 01/13/2023 Office Visit Cardiology Sobia Brewster PA-C [address] [place] [address] 01/22/2023 Office Visit Infectious Disease Vidya Fabian MD [address] [place] [address] 04/09/2023 Office Visit Urology Alfredo Panda MD [address] [facility] [address] [place] [address] 04/28/2023 Office Visit Family Medicine Brian Domínguez MD [address] [place] [address] 05/09/2023 Office Visit Gastroenterology Wendy Frias DO [address] [place] [address] Scheduled Procedures Name Priority Associated Diagnoses Date/Ti [...] Additional history exists CKD PHOS USE SMARTSET 85443 10/24/202310/05, 02/18/2022, 02/17/2022, Additional history exists TSH 10/24/2023 10/23/2022, 02/05, 09/24/2021, Additional history exists CKD HGB USE SMARTSET 49001 11/22/202311/21, 11/21/2022, 04/25/2022, Additional history exists Colonoscopy [...] this encounter Medical Devices Implanted Type Area Bulk Plant Manager Device Identifier Shelf Expiration Date Model / Serial / Lot Jenna Rojas 6 [id number] - [id number] Implanted:Qty: 1 on 02/15/2011 at [place] [facility] [place]/A: Chest DO NOT USE 07/21/2015 [id number] / / [id number] documented as of this encounter Advance Directives Documents on File Type Date Recorded Patient Slack Cooper 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 Question Answer Comments Discussion of Advance Directives occurred with: Patient Does the patient have a Living Will? No Does the patient have Health Care Power of Food And Beverage Cashier? No Code Status History Code Status Date [...] the patient have Health Care Power of Food And Beverage Cashier? No Full Code 02/01/2010 4:02 PM 02/02/2010 4:09 PM This order reflects the patients wishes and were consensually agreed upon. Question Answer Comments Discussion of Advance Directives occurred with: Not Discussed Does the patient have a Living Will? No Does the patient have Health Care Power of Food And Beverage Cashier? No Healthcare Agents on File Name Relationship Healthcare Agent [facility] Communication Carolyn Ballard Adult Child Health Care Agent Care Teams Knot Cutter Relationship Specialty Start Date End Date Brian Domínguez MD [address], [place] [id number] PCP - General Family Medicine 07/16/17 documented as of this encounter
--- OUTSIDE RECORDS SUMMARY | 2023-05-17 12:21 | External Medical Summary | Summary of Care ---
Author Name Unknown Organization [facility] Address [address] [place] [address] Phone [phone] Care Team Providers Care Dandy Operator Name Role Phone Brian Domínguez MD Primary Care Provider [phone]- [phone] Reason for Visit * Reason Onset Date Comments Order Request 12/03/2022 Encounter Details Date Type Department Care Team Description 12/03/2022 Telephone [facility] [address] [place] [address] Brian Domínguez MD [address] [place] [address] Order Request Allergies Active Allergy [...] Active venlafaxine XR (EFFEXOR XR) 150 MG [id number]:Dep ression Take 1 Cap by mouth daily. With food. 30 Cap 5 7 Active Additional Information Patient taking differently: 225 mgOral Daily(AM), With food.,Indications: Takes 225 mg total every morning with food (150 mg tab + 75 mg tab), Reported on 06/24/2022 Blood Glucose Monitoring Suppl ([employer]en[employer] GLUCOMETER) w/Device KITIndications:Unco ntrolled type 2 diabetes mellitus without complication, without long-term current use of insulin Use as directed. Use as directed once daily 1 Kit 0 8 Active Blood Glucose Monitoring Suppl (MMIC SolutionsIO) w/Device KIT Use as directed. Use as directed. 1 Kit 0 9 Active Spacer/Aero-Holding Chambers WISAM Use with inhaler. Wheezing/bronchiti s. 1 Device 0 9 Active Digna [employer] DelRobotsAlive Lancets 33G MISC USE UP TO FOUR TIMES A DAY Dx:E11.4 100 Each 5 0 Active Lancet Devices (Agencourt BioscienceUCH DELICA LANCING DEV) MISC Use four times [...] 238 g 0 2 Active UltiCare Pen [place] 31G X 5 MM (Insulin Pen Needle) USE ONE NEEDLE TWICE DAILY 200 Each 3 2 Active Insulin Glargine Solostar 100 UNIT/ML Subcutaneous Solution Pen-injector (Basaglar KwikPen)Indications :Type 2 diabetes mellitus with diabetic neuropathy, with long-term current use of insulin ([facility]) Inject 30 units under the skin twice daily 45 mL 3 2 Active Insulin Glargine Solostar 100 UNIT/ML Subcutaneous Solution Pen-injector (Basaglar KwikPen)Indications :Type 2 diabetes mellitus with diabetic neuropathy, with long-term current use of insulin ([facility]) Inject 30 units under the skin twice [...] Respimat 2.5 MCG/ACT Inhalation Aerosol Solution (Tiotropium [place] Monohydrate) Inhale by mouth 2 Puffs in [...] Oral Tablet (Demadex)Indication s:Atherosclerotic heart disease of [place] coronary artery with other forms of angina [...] 2 Active Vitamin D (Ergocalciferol) 1.25 MG (12542 UT) Oral Capsule (Drisdol)Indication s:Vitamin D deficiency [...] DAILY 60 Capsule 5 3 Active Nystatin 505696 UNIT/ML Mouth/Throat Suspension Swish and swallow 5 [...] mg daily Atherosclerotic heart diseas e of redd[place] coronary artery with other forms of angina pectoris 11/15/2021 Last Assessment & Plan: Stable. No angina -continue toprol, ASA and statin Seasonal allergies 11/15/2021 Recurrent UTI 10/07/2021 Last Assessment & Plan: Followed by urology Pt is supposed to be on methenamine--will need to clarify with dgt that she is giving this. 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 Name/Company sending fax: [employer] [facility] [employer] What fax is pertaining to: [employer] Date(s) they sent request: 12/04/22- resending today Verified fax number they are sending to is correct (Y or N): y Callback Number for the clinic to call to verified if fax was received: [phone] * Telephone Encounter - Angie Castro RPh - 12/05/2022 2:09 PM EDT No RP in [facility] office today. Routing to check for paperwork tomorrow when RP returns. Angie Castro RPh, PharmD Clinical Pharmacist - Oil Laboratory Analyst Medication Therapy Disease Management Clinic 12/05/2022, 2:09 PM Ph.[phone] * Telephone Encounter - DENG Canales - 12/05/2022 10:19 AM EDT Received a call asking if fax was received by office. Name/Company sending fax: [employer] What fax is pertaining to: [employer] Date(s) they sent request: 11-26-22, 11-29-22, 12-03-22, 12-04-22. Verified fax number they are sending to is correct (Y or N): Yes, Main & Private Callback Number for the clinic to call to verified if fax was received: [phone] * Telephone Encounter - Cheryl Mark RPh - 12/03/2022 1:54 PM EDT Will complete once form received. Thanks, Cheryl Mark, PharmD Clinical Pharmacist Medication Therapy [...] [facility] Lashay Blevins PA-C [address] [place] [address] Beverly Lozoya, [facility] [address] [place] [address] 12/27/2022 Cardiac Studies Cardiac Studies 12/30/2022 Telemedicine Pharmacy [facility] [address] [place] [address] 01/13/2023 Office Visit Cardiology Sobia Brewster PA-C [address] [place] [address] 01/22/2023 Office Visit Infectious Disease Vidya Fabian MD [address] [place] [address] 04/09/2023 Office Visit Urology Alfredo Panda MD [address] [facility] [address] [place] [address] 04/28/2023 Office Visit Family Medicine Brian Domínguez MD [address] [place] [address] 05/09/2023 Office Visit Gastroenterology Wendy Frias, [address] [place] [address] Scheduled Procedures Name Priority Associated Diagnoses Date/Ti [...] Additional history exists CKD PHOS USE SMARTSET 08673 10/24/202310/05, 02/18/2022, 02/17/2022, Additional history exists TSH 10/24/2023 10/23/2022, 02/05, 09/24/2021, Additional history exists CKD HGB USE SMARTSET 09368 11/22/202311/21, 11/21/2022, 04/25/2022, Additional history exists Colonoscopy [...] this encounter Medical Devices Implanted Type Area Tool And Die Maker Level Five Device Identifier Shelf Expiration Date Model / Serial / Lot Jenna Rojas 6 [id number] - [id number] Implanted:Qty: 1 on 02/15/2011 at [place] [facility] [place] N/A: Chest DO NOT USE 07/21/2015 [id number] / / [id number] documented as of this encounter Advance Directives Documents on File Type Date Recorded Patient Spinner Continuous 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 Question Answer Comments Discussion of Advance Directives occurred with: Patient Does the patient have a Living Will? No Does the patient have Health Care Power of Marine Service Station Attendant? No Code Status History Code Status [...] the patient have Health Care Power of Marine Service Station Attendant? No Full Code 02/01/2010 4:02 PM 02/02/2010 4:09 PM This order reflects the patients wishes and were consensually agreed upon. Question Answer Comments Discussion of Advance Directives occurred with: Not Discussed Does the patient have a Living Will? No Does the patient have Health Care Power of Marine Service Station Attendant? No Healthcare Agents on File Name Relationship Healthcare Agent [facility] p Communication Carolyn Ballard Adult Child Health Care Agent Care Teams Dandy Operator Relationship Specialty Start Date End Date Brian Domínguez MD [address] [place] [address] PCP - General Family Medicine 07/16/17 documented as of this encounter
--- OUTSIDE RECORDS SUMMARY | 2023-05-17 12:21 | External Medical Summary | Summary of Care ---
Author Name Unknown Organization [facility] Address [address] [place] [address] Phone [phone] Care Team Providers Care Carpenter Repairer Name Role Phone Brian Domínguez MD Primary Care Provider [phone]- [phone] Reason for Referral * Ancillary Services (Within 3 days (urgent)) - Authorized Specialty Diagnoses / Procedures Referred By Mitchell chavez Referred To Contact Taker Off Drying Kiln Diagnoses Self-care deficit Lashay Blevins PA-C [address] [place] [address] Referral ID Status Reason Start Date Expiration Date Visits Requested Visits Authorized [id number] Authorized Ancillary Services Required 12/06/2022 999 999 Question Answer Referral Priority Within 3 days (urgent) Reason for Visit * Reason Onset Date Comments Advice 12/06/2022 Encounter Details Date Type Department Care Team Description 12/06/2022 Telephone [facility], [place] [address] [place] [address] Lashay Blevins PA-C [address] [place] [address] Advice Allergies Active Allergy Reactions [...] Active venlafaxine XR (EFFEXOR XR) 150 MG [id number]:Dep ression Take 1 Cap by mouth daily. [...] 0 11/18/2017 Active Blood Glucose Monitoring Suppl (365webcall VERIO) w/Device KIT Use as directed. Use [...] with levemir 100 Each 5 12/11/2020 Active Dicyclomine HCl 10 MG Oral Capsule (Bentyl)Indications :Abdominal pain TAKE ONE CAPSULE BY MOUTH FOUR TIMES DAILY NEEDED FOR ABDOMINAL PAIN 120 Capsule 1 06/08/2021 Active Nitroglycerin 0.4 MG Sublingual Tablet Sublingual (Nitrostat)Indicati ons:Chronic coronary artery disease Place under the tongue 1 Tablet every 5 minutes as needed for Pain, Chest. Max dose 3 tablets in 15 minutes 25 Tablet 5 09/24/2021 Active Lactulose 10 GM/15ML Oral Solution (Constulose)Indicat ions:Chronic liver disease and cirrhosis (HCC) TAKE 45 ML BY MOUTH TWICE DAILY DIRECTED 2700 mL 5 10/04/2021 Active Ondansetron HCl 8 MG Oral Tablet (Zofran)Indications :Nausea TAKE ONE TABLET BY MOUTH EVERY EIGHT HOURS NEEDED FOR NAUSEA 60 Tablet 5 12/28/2021 Active Budesonide-Formoter ol Fumarate 160-4.5 MCG/ACT Inhalation Aerosol (Symbicort) Inhale by mouth 2 Puffs in the morning AND 2 Puffs before bedtime. 10.2 g 12 02/18/2022 Active lamoTRIgine 100 MG Oral Tablet (LaMICtal) Take 1 Tablet by mouth every morning. 30 Tablet 5 03/12/2022 Active Levothyroxine Sodium 88 MCG Oral Tablet (Levoxyl)Indication s:Hypothyroidism TAKE 1 TABLET BY MOUTH ONCE DAILY at least 30 minutes before breakfast and other medications 90 Tablet 3 03/13/2022 Active Polyethylene Glycol 3350 17 GM/SCOOP Oral Powder (Miralax) USE 1/2 OF BOTTLE IN 32 OUNCES OF GATORADE THE DAY BEFORE AND THE DAY OF PROCEDURE DIRECTED 238 g 0 03/19/2022 Active UltiCare Pen Seanor 31G X 5 MM (Insulin Pen Needle) USE ONE NEEDLE TWICE DAILY 200 Each 3 04/03/2022 Active Insulin Glargine Solostar 100 UNIT/ML Subcutaneous Solution Pen-injector (Basaglar KwikPen)Indications :Type 2 diabetes mellitus with diabetic neuropathy, with long-term current use of insulin (HCC) Inject 30 units under the skin twice daily 45 mL 3 04/16/2022 Active Insulin Glargine Solostar 100 UNIT/ML Subcutaneous Solution Pen-injector (Basaglar [place])Indications :Type 2 diabetes mellitus with diabetic neuropathy, with long-term current use of insulin ([facility]) Inject 30 units under the skin [...] Respimat 2.5 MCG/ACT Inhalation Aerosol Solution (Tiotropium [place] Monohydrate) Inhale by mouth 2 Puffs in the morning. 4 g 3 04/25/2022 Active Estradiol 0.1 MG/GM Vaginal Cream Administer into the vagina 1 g in the morning. 42.5 g 12 05/07/2022 Active OneTouch Verio In Vitro Strip (Glucose Blood)Indications:T ype 2 diabetes mellitus with diabetic neuropathy, with long-term current use of insulin ([facility]) USE TO CHECK BLOOD SUGAR THREE TIMES A DAY 300 Strip 1 05/11/2022 Active Torsemide 20 MG Oral Tablet (Demadex)Indication s:Atherosclerotic heart disease of [place] coronary artery with other forms of angina pectoris ([facility]),Hypertensive heart disease with chronic diastolic congestive heart failure ([facility]) TAKE 1 TABLET BY MOUTH EVERY MORNING. MAY TAKE 1 ADDITIONAL TABLET NEEDED FOR SWELLING. 90 Tablet 0 05/13/2022 Active Diclofenac Sodium 1 % External Gel (Voltaren) Apply topically to affected area 2 times a day. 150 g 3 06/05/2022 Active Vitamin D (Ergocalciferol) 1.25 MG (16267 UT) Oral Capsule (Drisdol)Indication s:Vitamin D deficiency [...] DAILY 60 Capsule 5 08/22/2022 Active Nystatin 641248 UNIT/ML Mouth/Throat Suspension Swish and swallow 5 [...] the evening every day 0 09/08/2022 Active Pantoprazole Sodium 40 MG Oral Tablet Delayed Release (Protonix)Indicatio ns:Gastroesophageal reflux disease without esophagitis TAKE ONE TABLET BY MOUTH IN THE MORNING AND ONE TABLET IN THE EVENING 60 Tablet 0 09/25/2022 Active metFORMIN HCl ER 500 MG Oral [...] 11/29/2022 Active clonazePAM 0.5 MG Oral Tablet (KlonoPIN)Melotio ns:Bipolar I disorder, most recent episode depressed, moderate (HCC) TAKE ONE TABLET BY MOUTH THREE TIMES DAILY 90 Tablet 0 11/29/2022 Active levoFLOXacin 500 MG Oral Tablet Take 1 Tablet by mouth in the morning for 10 days. until gone.. 10 Tablet 0 11/29/2022 12/10/19 Active Potassium Chloride Mag ER 20 MEQ Oral Tablet Extended Release TAKE ONE TABLET BY MOUTH IN THE MORNING. to use when taking additional torsemide 30 Tablet 0 12/03/2022 Active Hospital, Clinic, or Other Facility Administered [...] mg daily Atherosclerotic heart diseas e of [place] coronary artery with other forms of angina pectoris 11/15/2021 Last Assessment & Plan: Stable. No angina -continue toprol, ASA and statin Seasonal allergies 11/15/2021 Recurrent UTI 10/07/2021 Last Assessment & Plan: Followed by urology Pt is supposed to be on methenamine--will need to clarify with dgt that she is giving this. 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 She is having difficulty with caregiver support. Sounds like there was a lapse with the waiver program. She is requesting her mother have a high school social science teacher to help coordinate her care. Referral placed. Her mother is still very tired at home. Cough is improved but still present. Reviewed recent labs with her. Advised her to reach out to the [facility] in regards to caregiver support/waiver program. documented in this encounter Plan of Treatment Upcoming Encounters Date Type Specialty Care Team Description 12/09/2022 Imaging Radiology 12/17/2022 Telemedicine [facility] Lashay Blevins PA-C [address] [place] [address] Beverly Lozoya, [facility] [address] [place] [address] 12/27/2022 Cardiac Studies Cardiac Studies 12/30/2022 Telemedicine Pharmacy [facility] [address] [place] [address] 01/13/2023 Office Visit Cardiology Sobia Brewster PA-C [address] [place] [address] 01/22/2023 Office Visit Infectious Disease Vidya Fabian MD [address] [place] [address] 04/09/2023 Office Visit Urology Alfredo Panda MD [address] [place] [address] 04/28/2023 Office Visit Family Medicine Brian Domínguez MD [address] [place] [address] 05/09/2023 Office Visit Gastroenterology Wendy Frias, [address] [place] [address] Scheduled Procedures Name Priority Associated Diagnoses Date/Ti me COLONOSCOPY FLEXIBLE PROXIMA L DIAGNOSTIC Recall Special screening for malignant neoplasms, colon Scheduled Referrals Name Type Priority Associated Diagnoses Orde r Schedule SOCIAL SERVICE REFERRAL OP Referral Within 3 days (urgent) Self-care deficit Ordered: 12/06/2022 Health Maintenance Due Date Last Done Comments [...] Additional history exists CKD PHOS USE SMARTSET 58202 10/24/202310/05, 02/18/2022, 02/17/2022, Additional history exists TSH 10/24/2023 10/23/2022, 02/05, 09/24/2021, Additional history exists CKD HGB USE SMARTSET 63291 11/22/202311/21, 11/21/2022, 04/25/2022, Additional history exists Colonoscopy [...] this encounter Medical Devices Implanted Type Area Cell Attendant Device Identifier Shelf Expiration Date Model / Serial / Lot Jenna Denny [id number] - [id number] Implanted:Qty: 1 on 02/15/2011 [place] [facility]A: Chest DO NOT USE 07/21/2015 [id number] / / [id number] documented as of this encounter Visit Diagnoses Diagnosis Self-care deficit- Primary documented in this encounter Advance Directives Documents on File Type Date Recorded Patient Director Of Employer Services 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 Question Answer Comments Discussion of Advance Directives occurred with: Patient Does the patient have a Living Will? No Does the patient have Health Care Power of Nursing Program Chair? No Code Status History Code Status Date [...] the patient have Health Care Power of Nursing Program Chair? No Full Code 02/01/2010 4:02 PM 02/02/2010 4:09 PM This order reflects the patients wishes and were consensually agreed upon. Question Answer Comments Discussion of Advance Directives occurred with: Not Discussed Does the patient have a Living Will? No Does the patient have Health Care Power of Nursing Program Chair? No Healthcare Agents on File Name Relationship Healthcare Agent [facility] p Communication Carolyn Ballard Adult Child Health Care Agent Care Teams Carpenter Repairer Relationship Specialty Start Date End Date Oesterling, Brian R, MD [address], [place] [id number] PCP - General Family Medicine 07/16/17 documented as of this encounter
--- OUTSIDE RECORDS SUMMARY | 2023-05-17 12:22 | External Medical Summary ---
Author Name Unknown Address Unknown Organization [id number]:LAB[facility]ATORY [facility] - [address] [facility] [place] [address] Laboratory Report Ordering Provider Test Date Status LETTY UMANZOR 12/05/2022 09:00:00 Final Observation Date Value Abnormality Reference (Units ) Status Color of Urine by Auto 12/05/2022 09:00:00 Light Yellow Colorless, Light Yellow, Yellow, Dark Yellow Final Clarity, Urine 12/05/2022 09:00:00 Clear Clear Final Glucose [Mass/volume] in Urine by Automated test strip 12/05/2022 09:00:00 Negative Negative (mg/dL) Final Bilirubin.total [Presence] in Urine by Automated test strip 12/05/2022 09:00:00 Negative Negative Final Ketones [Mass/volume] in Urine by Automated test strip 12/05/2022 09:00:00 Negative Negative (mg/dL) Final Specific gravity, Urine 12/05/2022 09:00:00 1.009 1.003-1.030 Final Hemoglobin [Presence] in Urine by Automated test strip 12/05/2022 09:00:00 Negative Negative Final pH, Urine 12/05/2022 09:00:00 6.0 5.0-7.5 (Units) Final Protein [Mass/volume] in Urine by Automated test strip 12/05/2022 09:00:00 Negative Negative (mg/dL) Final Urobilinogen [Mass/volume] in Urine by Automated test strip 12/05/2022 09:00:00 Normal Normal (mg/dL) Final Nitrite [Presence] in Urine by Automated test strip 12/05/2022 09:00:00 Negative Negative Final Leukocyte esterase [Presence] in Urine by Automated test strip 12/05/2022 09:00:00 Negative Negative Final RBC, Urine 12/05/2022 09:00:00 0-2 0-2 (/HPF) Final WBC, Urine 12/05/2022 09:00:00 3-5 Abnormal 0-2 (/HPF) Final Bacteria [#/area] in Urine sediment by Microscopy high power field 12/05/2022 09:00:00 0-25 0-25 (/HPF) Final CULTURE, URINE - [facility] 12/05/2022 09:00:00 Final Culture not indicated by uri nalysis results Performing Location [facility] - [address] [facility] [address]
--- OUTSIDE RECORDS SUMMARY | 2023-05-17 12:22 | External Medical Summary ---
Author Name Unknown Address Unknown Organization K01:[facility]ORY [facility] [place] - [facility] [place] [address] Laboratory Report Ordering Provider Test Date Status LETTY UMANZOR 12/05/2022 12:33:00 Final Observation Date Value Abnormality Reference (Units ) Status Creatinine 12/05/2022 12:33:00 1.1 Above high normal 0.5-1.0 (mg/dL) Final Glomerular filtration rate/1.73 sq M.predicted [Volume Rate/Area] in Serum, Plasma or Blood by Creatinine-based formula (CKD-EPI) 12/05/2022 12:33:00 52 Below low normal >=60 (mL/min) Final eGFR is calculated based on the CKD-EPI 2020 equation Performing Location LAB[facility]ATORY [facility] - [facility] [address] [place] [address]
--- OUTSIDE RECORDS SUMMARY | 2023-05-17 12:22 | External Medical Summary | Summary of Care ---
Author Name Unknown Organization [facility] Address [address] [place] [address] Phone [phone] Care Team Providers Care Castings Drafter Name Role Phone Brian Domínguez MD Primary Care Provider +1- [phone] Reason for Visit * Reason Onset Date Comments Order Request 12/03/2022 Encounter Details Date Type Department Care Team Description 12/03/2022 Telephone [facility] [address] [place] [address] Brian Domínguez MD [address] [place] [address] Order Request Allergies Active Allergy Reactions Severity Noted Date Comments Propoxyphene Hcl Rash Low 10/29/2010 Fentanyl Diarrhea Low 04/26/2010 anxiety Methocarbamol Medium 10/05/2020 Other reaction(s): Delirium Methocarbamol Low 04/15/2007 Zolpidem Low 10/05/2020 Other reaction(s): Confusion documented as of this encounter (statuses as of 12/05/2022) Medications Medication Sig Dispensed Refills Start Date End Date Status ARIPiprazole (ABILIFY) 2 MG Tablet Take 1 Tablet by mouth in the morning. 0 6 Active venlafaxine XR (EFFEXOR XR) 150 MG [id number]:Dep ression Take 1 Cap by mouth daily. With food. 30 Cap 5 7 Active Additional Information Patient taking differently: 225 mgOral Daily(AM), With food.,Indications: Takes 225 mg total every morning with food (150 mg tab + 75 mg tab), Reported on 06/24/2022 Blood Glucose Monitoring Suppl (Tailored-[employer] Home [employer] GLUCOMETER) w/Device KITIndications:Unco ntrolled type 2 diabetes mellitus without complication, without long-term current use of insulin Use as directed. Use as directed once daily 1 Kit 0 8 Active Blood Glucose Monitoring Suppl (One Loyalty NetworkIO) w/Device KIT Use as directed. Use as directed. 1 Kit 0 9 Active Spacer/Aero-Holding Chambers WISAM Use with inhaler. Wheezing/bronchiti s. 1 Device 0 9 Active [employer] Lancets 33G MISC USE UP TO FOUR TIMES A DAY Dx:E11.4 100 Each 5 0 Active Lancet Devices (The World of PicturesUCH DELICA LANCING DEV) MISC Use four times [...] 238 g 0 2 Active UltiCare Pen [place] 31G X 5 MM (Insulin Pen Needle) USE ONE NEEDLE TWICE DAILY 200 Each 3 2 Active Insulin Glargine Solostar 100 UNIT/ML Subcutaneous Solution Pen-injector (Basaglar KwikPen)Indications :Type 2 diabetes mellitus with diabetic neuropathy, with long-term current use of insulin ([facility]) Inject 30 units under the skin twice daily 45 mL 3 2 Active Insulin Glargine Solostar 100 UNIT/ML Subcutaneous Solution Pen-injector (Basaglar KwikPen)Indications :Type 2 diabetes mellitus with diabetic neuropathy, with long-term current use of insulin ([facility]) Inject 30 units under the skin [...] Respimat 2.5 MCG/ACT Inhalation Aerosol Solution (Tiotropium [place] Monohydrate) Inhale by mouth 2 Puffs in [...] Oral Tablet (Demadex)Indication s:Atherosclerotic heart disease of [place] coronary artery with other forms of [...] 2 Active Vitamin D (Ergocalciferol) 1.25 MG (99256 UT) Oral Capsule (Drisdol)Indication s:Vitamin D deficiency [...] DAILY 60 Capsule 5 3 Active Nystatin 033346 UNIT/ML Mouth/Throat Suspension Swish and swallow 5 [...] as of this encounter (statuses as of 12/05/2022) Active Problems Problem Noted Date Hypertensive heart and kidne y disease with chronic diastolic congestive heart failure and stage 3a chronic kidney disease 12/28/2021 Last Assessment & Plan: Euvolemic, BP stable EF 55% 09/25 GFR 69 02/25 -Continue Torsemide 20 mg BID, Spironolactone 25 mg BID, Tropol XL 50 mg daily Atherosclerotic heart diseas e of [place] coronary artery with other forms of angina pectoris 11/15/2021 Last Assessment & Plan: Stable. No angina -continue toprol, ASA and statin Seasonal allergies 11/15/2021 Recurrent UTI 10/07/2021 Last Assessment & Plan: Followed by urology Pt is supposed to be on methenamine--will need to clarify with dgt that she is giving this. 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/2014 buttermaker current use of anticoagulant therapy 1 [...] as of this encounter (statuses as of 12/05/2022) Immunizations Name Administration Dates Next Due COVID-19 [...] Miscellaneous Notes * Telephone Encounter - DENG Canales - 12/05/2022 10:19 AM EDT Received a call asking if fax was received by office. Name/Company sending fax: [employer] / [employer] What fax is pertaining to: [employer] [place] Date(s) they sent request: 11-26-22, 11-29-22, 12-03-22, 12-04-22. Verified fax number they are sending to is correct (Y or N): Yes, Main & Private Callback Number for the clinic to call to verified if fax was received: [phone] * Telephone Encounter - Cheryl Mark RPh [...] [facility] Lashay Blevins PA-C [address] [place] [address] Beverly Lozoya, [address] [place] [address] 12/27/2022 Cardiac Studies Cardiac Studies 12/30/2022 Telemedicine [facility] [address] [place] [address] 01/13/2023 Office Visit Cardiology Sobia Brewster PA-C [address] [place] [address] 01/22/2023 Office Visit Infectious Disease Vidya Fabian MD [address] [place] [address] 04/09/2023 Office Visit Urology Alfredo Panda MD [address] [place] [address] 04/28/2023 Office Visit Family Medicine Brian Domínguez MD [address] [place] [address] 05/09/2023 Office Visit Gastroenterology Wendy Frias DO [address] [place] [address] Scheduled Procedures Name Priority Associated Diagnoses Date/Ti [...] 10/23/2022, 04/07, 11/01/2021, Additional history exists GFR 05/21/2023 11/18/2022, 10/05, 04/25/2022, Additional history exists Albumin/Creatinine Ratio 10/24/2023 023, 07/17/2022, 10/05/2020, Additional history exists CKD PHOS USE SMARTSET 51927 10/24/202310/05, 02/18/2022, 02/17/2022, Additional history exists TSH 10/24/2023 10/23/2022, 02/05, 09/24/2021, Additional history exists CKD HGB USE SMARTSET 53176 11/22/202311/21, 11/21/2022, 04/25/2022, Additional history exists Colonoscopy [...] this encounter Medical Devices Implanted Type Area Laundromat Manager Device Identifier Shelf Expiration Date Model / Serial / Lot Sut Bob 6 [id number] - [id number] Implanted:Qty: 1 on 02/15/2011 [place] [facility] [place]/A: Chest DO NOT USE 07/21/2015 [id number] / / [id number] documented as of this encounter Advance Directives Documents on File Type Date Recorded Patient Playground Official 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 Question Answer Comments Discussion of Advance Directives occurred with: Patient Does the patient have a Living Will? No Does the patient have Health Care Power of Automatic Dry Starch Operator? No Code Status History Code Status [...] the patient have Health Care Power of Automatic Dry Starch Operator? No Full Code 02/01/2010 4:02 PM 02/02/2010 4:09 PM This order reflects the patients wishes and were consensually agreed upon. Question Answer Comments Discussion of Advance Directives occurred with: Not Discussed Does the patient have a Living Will? No Does the patient have Health Care Power of Automatic Dry Starch Operator? No Healthcare Agents on File Name Relationship Healthcare Agent [facility] Candie Ballard Adult Child Health Care Agent Care Teams Castings Drafter Relationship Specialty Start Date End Date Brian Domínguez MD [address] [place] [address] PCP - General Family Medicine 07/16/17 documented as of this encounter
--- OUTSIDE RECORDS SUMMARY | 2023-05-17 12:22 | External Medical Summary ---
Author Name Unknown Address Unknown Organization K01:[facility]ORY [facility] - [address] [place] [address] Laboratory Report Ordering Provider Test Date Status MARIA MORALES 12/05/2022 09:00:00 Final Observation Date Value Abnormality Reference (Units ) Status Osmolality 12/05/2022 09:00:00 280 278-305 ( mOsm/kg) Final Performing Location [facility] - [address] [place] [address]
--- OUTSIDE RECORDS SUMMARY | 2023-05-17 12:22 | External Medical Summary | Summary of Care ---
Author Name Unknown Organization [facility] Address [address] [place] [address] Phone [phone] Care Team Providers Care Pipeline Dispatch Operator Name Role Phone Brian Domínguez MD Primary Care Provider +1- [phone] Reason for Visit * Reason Onset Date Comments Medication Refill 12/03/2022 Re: Potassium Chloride Mag ER Oral Tablet Extended Release 20 MEQ Encounter Details Date Type Department Care Team Description 12/03/2022 Refill [facility] [place] [address] [place] [address] Erna Blevins PA-C [address] [place] [address] Allergies Active Allergy Reactions Severity Noted Date Comments Propoxyphene Hcl Rash Low 10/29/2010 Fentanyl Diarrhea Low 04/26/2010 anxiety Methocarbamol Medium 10/05/2020 Other reaction(s): Delirium Methocarbamol Low 04/15/2007 Zolpidem Low 10/05/2020 Other reaction(s): Confusion documented as of this encounter (statuses as of 12/03/2022) Medications Medication Sig Dispensed Refills Start Date End Date Status ARIPiprazole (ABILIFY) 2 MG Tablet Take 1 Tablet by mouth in the morning. 0 6 Active venlafaxine XR (EFFEXOR XR) 150 MG [id number]:Dep ression Take 1 Cap by mouth daily. [...] 0 8 Active Blood Glucose Monitoring Suppl (Qt Software VERIO) w/Device KIT Use as directed. Use as directed. 1 Kit 0 9 Active Spacer/Aero-Holding Chambers WISAM Use with inhaler. Wheezing/bronchiti s. 1 Device 0 9 Active VBrick Systemsuch Delica Lancets 33G MISC USE UP TO FOUR TIMES A DAY Dx:E11.4 100 Each 5 0 Active Lancet Devices (ArcherMind TechnologyUCH DELICA LANCING DEV) MISC Use four [...] 238 g 0 2 Active UltiCare Pen [place] 31G X 5 MM (Insulin Pen Needle) USE ONE NEEDLE TWICE DAILY 200 Each 3 2 Active Insulin Glargine Solostar 100 UNIT/ML Subcutaneous Solution Pen-injector (Basaglar KwikPen)Indications :Type 2 diabetes mellitus with diabetic neuropathy, with long-term current use of insulin ([facility]) Inject 30 units under the skin twice daily 45 mL 3 2 Active Insulin Glargine Solostar 100 UNIT/ML Subcutaneous Solution Pen-injector (Basaglar KwikPen)Indications :Type 2 diabetes mellitus with diabetic neuropathy, with long-term current use of insulin (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 [...] 2 Active Vitamin D (Ergocalciferol) 1.25 MG (22087 UT) Oral Capsule (Drisdol)Indication s:Vitamin D deficiency [...] or chew 50 Capsule 0 3 Active TransferWiseS Disposable Nebulizer Kit Use as directed 1 [...] DAILY 60 Capsule 5 3 Active Nystatin 899751 UNIT/ML Mouth/Throat Suspension Swish and swallow 5 [...] additional torsemide 30 Tablet 0 3 Active Potassium Chloride Mag [...] as of this encounter (statuses as of 12/03/2022) Active Problems Problem Noted Date Hypertensive heart and kidne y disease with chronic diastolic congestive heart failure and stage 3a chronic kidney disease 12/28/2021 Last Assessment & Plan: Euvolemic, BP stable EF 55% 09/25 GFR 69 02/25 -Continue Torsemide 20 mg BID, Spironolactone 25 mg BID, Tropol XL 50 mg daily 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 No angina -continue toprol, ASA and statin Seasonal allergies 11/15/2021 Recurrent UTI 10/07/2021 Last Assessment & Plan: Followed by urology Pt is supposed to be on methenamine--will need to clarify with dgt that she is giving this. 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 to use when taking additional torsemide Authorizing Provider: ERNA BLEVINS * Telephone Encounter - DENG Hill - 12/03/2022 10:47 AM EDT Please authorize with refills, as appropriate. Thank you, DENG Hill documented in this encounter Plan of Treatment Upcoming Encounters Date Type Specialty Care Team Description 12/04/2022 Imaging Radiology 12/05/2022 Laboratory Laboratory Processing [facility] Draw [address] [place] [address] 12/17/2022 Telemedicine [facility] Erna Blevins PA-C [address] [place] [address] Beverly Lozoya, [address] [place] [address] 12/27/2022 Cardiac Studies Cardiac Studies 12/30/2022 Telemedicine [facility] [address] [place] [address] 01/13/2023 Office Visit Cardiology Sobia Brewster PA-C [address] [place] [address] 01/22/2023 Office Visit Infectious Disease Vidya Fabian MD [address] [place] [address] 04/09/2023 Office Visit Urology Alfredo Panda MD [address] [place] [address] 04/28/2023 Office Visit Family Medicine Brian Domínguez MD [address] [place] [address] 05/09/2023 Office Visit Gastroenterology Wendy Frias DO [address] [place] [address] Scheduled Procedures Name Priority Associated Diagnoses Date/Ti [...] Additional history exists CKD PHOS USE SMARTSET 87358 10/24/202310/05, 02/18/2022, 02/17/2022, Additional history exists TSH 10/24/2023 10/23/2022, 02/05, 09/24/2021, Additional history exists CKD HGB USE SMARTSET 02087 11/22/202311/21, 11/21/2022, 04/25/2022, Additional history exists Colonoscopy [...] this encounter Medical Devices Implanted Type Area Starbucks Barista Device Identifier Shelf Expiration Date Model / Serial / Lot Sut Bob 6 [id number] - [id number] Implanted:Qty: 1 on 02/15/2011 at OR [facility] N/A: Chest DO NOT USE 07/21/2015 [id number] / / [id number] documented as of this encounter Advance Directives Documents on File Type Date Recorded Patient Crane Service Technician Expl anation POLST 05/06/2018 POLST Latest [...] the patient have Health Care Power of Hatchery Helper? No Code Status History Code Status [...] the patient have Health Care Power of Hatchery Helper? No Full Code 02/01/2010 4:02 PM 02/02/2010 4:09 PM This order reflects the patients wishes and were consensually agreed upon. Question Answer Comments Discussion of Advance Directives occurred with: Not Discussed Does the patient have a Living Will? No Does the patient have Health Care Power of Hatchery Helper? No Healthcare Agents on File Name Relationship Healthcare Agent [facility] Candie Ballard Adult Child Health Care Agent Care Teams Pipeline Dispatch Operator Relationship Specialty Start Date End Date Brian Domínguez MD [address] [place] [address] PCP - General Family Medicine 07/16/17 documented as of this encounter
--- OUTSIDE RECORDS SUMMARY | 2023-05-17 12:22 | External Medical Summary | Summary of Care ---
Author Name Unknown Organization [facility] Address [address] [place] [address] Phone [phone] Care Team Providers Care Environmental Law Professor Name Role Phone Brian Domínguez MD Primary Care Provider +1- [phone] Reason for Visit * Reason Onset Date Comments Order Request 12/03/2022 Encounter Details Date Type Department Care Team Description 12/03/[address] [facility] [address] [place] [address] Brian Domínguez MD [address] [place] [address] Order Request Allergies Active Allergy [...] Active venlafaxine XR (EFFEXOR XR) 150 MG [id number]:Dep ression Take 1 Cap by mouth daily. With food. 30 Cap 5 7 Active Additional Information Patient taking differently: 225 mgOral Daily(AM), With food.,Indications: Takes 225 mg total every morning with food (150 mg tab + 75 mg tab), Reported on 06/24/2022 Blood Glucose Monitoring Suppl ([facility]JoinTV GLUCOMETER) w/Device KITIndications:Unco ntrolled type 2 diabetes mellitus without complication, without long-term current use of insulin Use as directed. Use as directed once daily 1 Kit 0 8 Active Blood Glucose Monitoring Suppl (LendYourIO) w/Device KIT Use as directed. Use as directed. 1 Kit 0 9 Active Spacer/Aero-Holding Chambers WISAM Use with inhaler. Wheezing/bronchiti s. 1 Device 0 9 Active RockYou DelACACIA Semiconductor Lancets 33G MISC USE UP TO FOUR TIMES A DAY Dx:E11.4 100 Each 5 0 Active Lancet Devices (BonushUCH DELICA LANCING DEV) MISC Use four times [...] 238 g 0 2 Active UltiCare Pen [place] 31G X 5 MM (Insulin Pen Needle) [...] Respimat 2.5 MCG/ACT Inhalation Aerosol Solution (Tiotropium [place] Monohydrate) Inhale by mouth 2 Puffs in [...] Oral Tablet (Demadex)Indication s:Atherosclerotic heart disease of [place] coronary artery with other forms of angina [...] 2 Active Vitamin D (Ergocalciferol) 1.25 MG (75398 UT) Oral Capsule (Drisdol)Indication s:Vitamin D deficiency [...] DAILY 60 Capsule 5 3 Active Nystatin 827090 UNIT/ML Mouth/Throat Suspension Swish and swallow 5 [...] mg daily Atherosclerotic heart diseas e of [place] coronary artery with other forms of angina pectoris 11/15/2021 Last Assessment & Plan: Stable. No angina -continue toprol, ASA and statin Seasonal allergies 11/15/2021 Recurrent UTI 10/07/2021 Last Assessment & Plan: Followed by urology Pt is supposed to be on methenamine--will need to clarify with dgt that she is giving this. 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 Name/Company sending fax: [employer] What fax is pertaining to: [employer] [place] Date(s) they sent request: 11-26-22, 11-29-22, 12-03-22, 12-04-22. Verified fax number they are sending to is correct (Y or N): Yes, Main & Private Callback Number for the clinic to call to verified if fax was received: [phone] * Telephone Encounter - Cheryl Mark RPh [...] [facility] Lashay Blevins PA-C [address] [place] [address] Beverly Lozoay, [address] [place] [address] 12/27/2022 Cardiac Studies Cardiac Studies 12/30/2022 Telemedicine [facility] [address] [place] [address] 01/13/2023 Office Visit Cardiology Sobia Brewster PA-C [address] [place] [address] 01/22/2023 Office Visit Infectious Disease Vidya Fabian MD [address] [place] [address] 04/09/2023 Office Visit Urology Alfredo Panda MD [address] [place] [address] 04/28/2023 Office Visit Family Medicine Brian Domínguez MD [address] [place] [address] 05/09/2023 Office Visit Gastroenterology Wendy Frias DO [address] [place] [address] Scheduled Procedures Name Priority Associated Diagnoses Date/Ti [...] Additional history exists CKD PHOS USE SMARTSET 06214 10/24/202310/05, 02/18/2022, 02/17/2022, Additional history exists TSH 10/24/2023 10/23/2022, 02/05, 09/24/2021, Additional history exists CKD HGB USE SMARTSET 55604 11/22/202311/21, 11/21/2022, 04/25/2022, Additional history exists Colonoscopy [...] this encounter Medical Devices Implanted Type Area Artificial Inseminator Device Identifier Shelf Expiration Date Model / Serial / Lot Sut Bob 6 [id number] - [id number] Implanted:Qty: 1 on 02/15/2011 at OR [facility] N/A: Chest DO NOT USE 07/21/2015 [id number] / / [id number] documented as of this encounter Advance Directives Documents on File Type Date Recorded Patient Licensed Sales Producer 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 Question Answer Comments Discussion of Advance Directives occurred with: Patient Does the patient have a Living Will? No Does the patient have Health Care Power of Teletray Operator? No Code Status History Code Status [...] the patient have Health Care Power of Teletray Operator? No Full Code 02/01/2010 4:02 PM 02/02/2010 4:09 PM This order reflects the patients wishes and were consensually agreed upon. Question Answer Comments Discussion of Advance Directives occurred with: Not Discussed Does the patient have a Living Will? No Does the patient have Health Care Power of Teletray Operator? No Healthcare Agents on File Name Relationship Healthcare Agent [facility] Candie Ballard Adult Child Health Care Agent Care Teams Environmental Law Professor Relationship Specialty Start Date End Date Brian Domínguez MD [address] [place] [address] PCP - General Family Medicine 07/16/17 documented as of this encounter
--- OUTSIDE RECORDS SUMMARY | 2023-05-17 12:22 | External Medical Summary ---
Author Name Unknown Address Unknown Organization K[facility] [address] [place] [address] Laboratory Report Ordering Provider Test Date Status MARIA MORALES 12/05/2022 09:00:00 Final Observation Date Value Abnormality Reference (Units ) Status BUN 12/05/2022 09:00:00 14 6-20 (mg/dL) Final Creatinine 12/05/2022 09:00:00 1.1 Above high normal 0.5-1.0 (mg/dL) Final Glomerular filtration rate/1.73 sq M.predicted [Volume Rate/Area] in Serum, Plasma or Blood by Creatinine-based formula (CKD-EPI) 12/05/2022 09:00:00 54 Below low normal >=60 (mL/min) Final eGFR is calculated based on the CKD-EPI 2020 equation SODIUM 12/05/2022 09:00:00 131 Below low normal 135 -146 (mmol/L) Final Potassium 12/05/2022 09:00:00 4.2 3.5-5.1 (m mol/L) Final Cl 12/05/2022 09:00:00 93 Below low normal 98- 107 (mmol/L) Final CO2 12/05/2022 09:00:00 24 22-32 (mmo l/L) Final Anion gap 12/05/2022 09:00:00 14 7-15 (mmol /L) Final Glucose 12/05/2022 09:00:00 192 Above high normal 70 -120 (mg/dL) Final Calcium 12/05/2022 09:00:00 9.1 8.4-10.2 ( mg/dL) Final Performing Location [facility] [address] [place] [address]
--- OUTSIDE RECORDS SUMMARY | 2023-05-17 12:22 | External Medical Summary | Summary of Care ---
Author Name Unknown Organization [facility] Address [address] [place] [address] Phone [phone] Care Team Providers Care Mold Bunch Trimmer Name Role Phone Brian Domínguez MD Primary Care Provider +1- [phone] Reason for Visit * Reason Onset Date Comments Order Request 12/03/2022 Encounter Details Date Type Department Care Team Description 12/03/[address] [facility] [address] [place] [address] Brian Domíngeuz MD [address] [place] [address] Order Request Allergies Active Allergy [...] Active venlafaxine XR (EFFEXOR XR) 150 MG [id number]:Dep ression Take 1 Cap by mouth daily. With food. 30 Cap 5 7 Active Additional Information Patient taking differently: 225 mgOral Daily(AM), With food.,Indications: Takes 225 mg total every morning with food (150 mg tab + 75 mg tab), Reported on 06/24/2022 Blood Glucose Monitoring Suppl ([employer] GLUCOMETER) w/Device KITIndications:Unco ntrolled type 2 diabetes mellitus without complication, without long-term current use of insulin Use as directed. Use as directed once daily 1 Kit 0 8 Active Blood Glucose Monitoring Suppl (Advanced Plasma TherapiesIO) w/Device KIT Use as directed. Use as directed. 1 Kit 0 9 Active Spacer/Aero-Holding Chambers WISAM Use with inhaler. Wheezing/bronchiti s. 1 Device 0 9 Active Aquto DelQuietly Lancets 33G MISC USE UP TO FOUR TIMES A DAY Dx:E11.4 100 Each 5 0 Active Lancet Devices (YouDroop LTDUCH DELICA LANCING DEV) MISC Use four times [...] 238 g 0 2 Active UltiCare Pen [place] 31G X 5 MM (Insulin Pen Needle) [...] Respimat 2.5 MCG/ACT Inhalation Aerosol Solution (Tiotropium [place] Monohydrate) Inhale by mouth 2 Puffs in [...] Oral Tablet (Demadex)Indication s:Atherosclerotic heart disease of [place] coronary artery with other forms of angina [...] 2 Active Vitamin D (Ergocalciferol) 1.25 MG (72884 UT) Oral Capsule (Drisdol)Indication s:Vitamin D deficiency [...] DAILY 60 Capsule 5 3 Active Nystatin 511078 UNIT/ML Mouth/Throat Suspension Swish and swallow 5 [...] mg daily Atherosclerotic heart diseas e of [place] coronary artery with other forms of angina pectoris 11/15/2021 Last Assessment & Plan: Stable. No angina -continue toprol, ASA and statin Seasonal allergies 11/15/2021 Recurrent UTI 10/07/2021 Last Assessment & Plan: Followed by urology Pt is supposed to be on methenamine--will need to clarify with dgt that she is giving this. 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 Routing to check for paperwork tomorrow when RPh returns. Angie Castro RPh, PharmD Clinical Pharmacist - Brand Planner Medication Therapy [facility] 12/05/2022, 2:09 PM [phone] * Telephone Encounter - DENG Canales - 12/05/2022 10:19 AM EDT Received a call asking if fax was received by office. Name/Company sending fax: [employer] / [employer] What fax is pertaining to: [employer] [place] Date(s) they sent request: 11-26-22, 11-29-22, 12-03-22, 12-04-22. Verified fax number they are sending to is correct (Y or N): Yes, Main & Private Callback Number for the clinic to call to verified if fax was received: [phone] * Telephone Encounter - Cheryl Mark RPh [...] Team Description 12/09/2022 Imaging Radiology 12/17/2022 Telemedicine [facility] Lashay Blevins PA-C [address] [place] [address] [address] [place] [address] 12/27/2022 Cardiac Studies Cardiac Studies 12/30/2022 Telemedicine Pharmacy [facility] [address] [place] [address] 01/13/2023 Office Visit Cardiology Sobia Brewster PA-C [address] [place] [address] 01/22/2023 Office Visit Infectious Disease Vidya Fabian MD [address] [place] [address] 04/09/2023 Office Visit [facility] [address] [place] [address] 04/28/2023 Office Visit Family Medicine Brian Domínguez MD [address] [place] [address] 05/09/2023 Office Visit Gastroenterology Wendy Frias, DO [address] [place] [address] Scheduled Procedures Name Priority Associated Diagnoses Date/Ti [...] 11/01/2021, Additional history exists GFR 06/06/2023 12/05/2022, 11/04, 10/23/2022, Additional history exists Albumin/Creatinine Ratio 10/24/2023 023, 07/17/2022, 10/05/2020, Additional history exists CKD PHOS USE SMARTSET 07739 10/24/202310/05, 02/18/2022, 02/17/2022, Additional history exists TSH 10/24/2023 10/23/2022, 02/05, 09/24/2021, Additional history exists CKD HGB USE SMARTSET 05435 11/22/202311/21, 11/21/2022, 04/25/2022, Additional history exists Colonoscopy [...] this encounter Medical Devices Implanted Type Area Rider Ticket Worker Device Identifier Shelf Expiration Date Model / Serial / Lot Sut Steel 6 [id number] - [id number] Implanted:Qty: 1 on 02/15/2011 at OR [facility] N/A: Chest DO NOT USE 07/21/2015 [id number] / / [id number] documented as of this encounter Advance Directives Documents on File Type Date Recorded Patient Entertainment Production Professional Expl 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 Question Answer Comments Discussion of Advance Directives occurred with: Patient Does the patient have a Living Will? No Does the patient have Health Care Power of Journeyman Level Acoustic Analyst? No Code Status History Code Status [...] the patient have Health Care Power of Journeyman Level Acoustic Analyst? No Full Code 02/01/2010 4:02 PM 02/02/2010 4:09 PM This order reflects the patients wishes and were consensually agreed upon. Question Answer Comments Discussion of Advance Directives occurred with: Not Discussed Does the patient have a Living Will? No Does the patient have Health Care Power of Journeyman Level Acoustic Analyst? No Healthcare Agents on File Name Relationship Healthcare Agent [facility] Communication Carolyn Goldmangerard Adult Child Health Care Agent Care Teams Mold Bunch Trimmer Relationship Specialty Start Date End Date Brian Domínguez MD [address] [place] [address] PCP - General Family Medicine 07/16/17 documented as of this encounter
--- OUTSIDE RECORDS SUMMARY | 2023-05-17 12:22 | External Medical Summary | Summary of Care ---
Author Name Unknown Organization [facility] Address [address] [place] [address] Phone [phone] Care Team Providers Care Top Inventory Control Executive Name Role Phone Brian Domínguez MD Primary Care Provider +1- [phone] Reason for Visit * Reason Onset Date Comments Advice 11/29/2022 Encounter Details Date Type Department Care Team Description 11/29/2022 Telephone [facility] [place] [address] [place] [address] Lashay Blevins PA-C [address] [place] [address] Advice Allergies Active Allergy Reactions Severity Noted Date Comments Propoxyphene Hcl Rash Low 10/29/2010 Fentanyl Diarrhea Low 04/26/2010 anxiety Methocarbamol Medium 10/05/2020 Other reaction(s): Delirium Methocarbamol Low 04/15/2007 Zolpidem Low 10/05/2020 Other reaction(s): Confusion documented as of this encounter (statuses as of 11/29/2022) Medications Medication Sig Dispensed Refills Start Date End Date Status ARIPiprazole (ABILIFY) 2 MG Tablet Take 1 Tablet by mouth in the morning. 0 2015 Active venlafaxine XR (EFFEXOR XR) 150 MG [id number]:Dep ression Take 1 Cap by mouth daily. [...] 0 11/18/2017 Active Blood Glucose Monitoring Suppl (LeoIO) w/Device KIT Use as directed. Use as directed. 1 Kit 0 10/31/2018 Active Spacer/Aero-Holding Chambers WISAM Use with inhaler. Wheezing/bronchitis . 1 Device 0 04/08/2019 Active KAL DelThe Nest Collective Lancets 33G MISC USE UP TO FOUR TIMES A DAY Dx:E11.4 100 Each 5 09/30/2019 Active Lancet Devices (Fun CityUCH DELICA LANCING DEV) MISC Use four times [...] 238 g 0 03/19/2022 Active UltiCare Pen [place] 31G X 5 MM (Insulin Pen Needle) [...] Respimat 2.5 MCG/ACT Inhalation Aerosol Solution (Tiotropium [place] Monohydrate) Inhale by mouth 2 Puffs in [...] 06/05/2022 Active Vitamin D (Ergocalciferol) 1.25 MG (37697 UT) Oral Capsule (Drisdol)Indication s:Vitamin D deficiency [...] DAILY 60 Capsule 5 08/22/2022 Active Nystatin 668102 UNIT/ML Mouth/Throat Suspension Swish and swallow 5 [...] the morning. 90 Tablet 0 10/23/2022 Active Potassium Chloride Mag ER 20 MEQ Oral Tablet Extended Release TAKE ONE TABLET BY MOUTH IN THE MORNING. to use when taking additional torsemide 30 Tablet 0 11/01/2022 Active Albuterol Sulfate HFA 108 (90 Base) [...] until gone.. 10 Tablet 0 11/29/2022 12/10/19 23 Active Hospital, Clinic, or Other Facility [...] as of this encounter (statuses as of 11/29/2022) Active Problems Problem Noted Date Hypertensive heart [...] giving this. 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 Anxiety 08/05/2017 Dsohwfz-Ulyot-Mnzwp disease 06/27/2015 Last Assessment & Plan: Frequent [...] as of this encounter (statuses as of 11/29/2022) Resolved Problems Problem Noted Date Resolved Date [...] 10/31/201008/08 Acute coronary syndrome 10/30/2010 01/22/20 14 [place] Research Other*[id number] 02/02/2010 04/18/2014 Overview: [place] Registry, Dr Joel CASAS Obesity, morbid (more [...] thrombosis 06/17/2006 01/21/2014 assisted current use of anticoagulant therapy 1 08/18/2005 [...] as of this encounter (statuses as of 11/29/2022) Immunizations Name Administration Dates Next Due COVID-19 [...] Telephone Encounter - Lashay Johnston PA-C - 11/29/2022 3:34 PM EDT Patient called as she is "feeling lousy." She states her chest is more congested, she continues to have green sputum production when she is able to expectorate. She hasn't been able to give a sputum sample. She has had low grade fevers in the 99.0's. Urine appears cloudy and foul smelling. Culture resulted as no growth. Recent CXR was negative for pneumonia. Will treat with Levaquin to cover for pseudomonas. Patient has had Cefdinir multiple times. Advised patient to reach for update next week either with me or PCP. documented in this encounter Plan of Treatment Upcoming Encounters Date Type Specialty Care Team Description 11/29/2022 Pharmacy Pharmacy [place] [facility] [address] [place] [address] Type 2 diabetes mellitus with stage 3a chronic kidney disease, with long-term current use of insulin (HCC)* 12/04/2022 Imaging Radiology 12/05/2022 Laboratory [place] [facility] [place] [facility] Draw [address] [place] [address] 12/17/2022 Telemedicine [facility] Lashay Blevins PA-C [address] [place] [address] Beverly Lozoya, [facility] Air Moving Technician [address] [place] [address] [place] [address] 12/27/2022 Cardiac Studies Cardiac Studies 12/30/2022 Telemedicine Pharmacy [facility] [address] [place] [address] 01/13/2023 Office Visit Cardiology Sobia Brewster PA-C [address] [place] [address] 01/22/2023 Office Visit Infectious Disease Vidya Fabian MD [address] [place] [address] 04/09/2023 Office Visit Urology Alfredo Panda MD [address] [place] [address] 04/28/2023 Office Visit Family Medicine Brian Domínguez MD [address] [place] [address] 05/09/2023 Office Visit Gastroenterology Wendy Frias, [address] [place] [address] Scheduled Procedures Name Priority Associated Diagnoses Date/Ti [...] Additional history exists CKD PHOS USE SMARTSET 90695 10/24/202310/05, 02/18/2022, 02/17/2022, Additional history exists TSH 10/24/2023 10/23/2022, 02/05, 09/24/2021, Additional history exists CKD HGB USE SMARTSET 88149 11/22/202311/21, 11/21/2022, 04/25/2022, Additional history exists Colonoscopy [...] Medical Devices Implanted Type Area Tool And Fixture Repairer Device Identifier Shelf Expiration Date Model / Serial / Lot Jenna Rojas 6 [id number] - [id number] Implanted:Qty: 1 on 02/15/2011 at OR [facility] [place] N/A: Chest DO NOT USE 07/21/2015 [id number] / / [id number] documented as of this encounter Advance Directives Documents on File Type Date Recorded Patient Manager Sas Expl anation POLST 05/06/2018 POLST Latest Code [...] patient have Health Care Power of Medical Records Coordinator? No Code Status History Code Status [...] patient have Health Care Power of Medical Records Coordinator? No Full Code 02/01/2010 4:02 PM 02/02/2010 4:09 PM This order reflects the patients wishes and were consensually agreed upon. Question Answer Comments Discussion of Advance Directives occurred with: Not Discussed Does the patient have a Living Will? No Does the patient have Health Care Power of Medical Records Coordinator? No Healthcare Agents on File Name Relationship Healthcare Agent [facility] Communication Carolyn Ballard Adult Child Health Care Agent Care Teams Top Inventory Control Executive Relationship Specialty Start Date End Date Brian Domínguez MD [address] [place] [address] PCP - General Family Medicine 07/16/17 documented as of this encounter
--- OUTSIDE RECORDS SUMMARY | 2023-05-17 12:22 | External Medical Summary | Summary of Care ---
Author Name Unknown Organization [facility] Address [address] [place] [address] Phone [phone] Care Team Providers Care Architectural Design Professor Name Role Phone Brian Domínguez MD Primary Care Provider +1- [phone] Reason for Visit * Reason Onset Date Comments Order Request 12/03/2022 Encounter Details Date Type Department Care Team Description 12/03/2022 Telephone [facility] [address] [place] [address] Brian Domínguez MD [address] [place] [address] Order Request Allergies Active Allergy [...] Active venlafaxine XR (EFFEXOR XR) 150 MG [id number]:Dep ression Take 1 Cap by mouth daily. With food. 30 Cap 5 7 Active Additional Information Patient taking differently: 225 mgOral Daily(AM), With food.,Indications: Takes 225 mg total every morning with food (150 mg tab + 75 mg tab), Reported on 06/24/2022 Blood Glucose Monitoring Suppl (Minube-Movista GLUCOMETER) w/Device KITIndications:Unco ntrolled type 2 diabetes mellitus without complication, without long-term current use of insulin Use as directed. Use as directed once daily 1 Kit 0 8 Active Blood Glucose Monitoring Suppl (Halozyme TherapeuticsIO) w/Device KIT Use as directed. Use as directed. 1 Kit 0 9 Active Spacer/Aero-Holding Chambers WISAM Use with inhaler. Wheezing/bronchiti s. 1 Device 0 9 Active Little1 DelmYwindow Lancets 33G MISC USE UP TO FOUR TIMES A DAY Dx:E11.4 100 Each 5 0 Active Lancet Devices (Tech in AsiaUCH DELICA LANCING DEV) MISC Use four times [...] 238 g 0 2 Active UltiCare Pen [place] 31G X 5 MM (Insulin Pen Needle) [...] Respimat 2.5 MCG/ACT Inhalation Aerosol Solution (Tiotropium [place] Monohydrate) Inhale by mouth 2 Puffs in [...] 2 Active Vitamin D (Ergocalciferol) 1.25 MG (74382 UT) Oral Capsule (Drisdol)Indication s:Vitamin D deficiency [...] DAILY 60 Capsule 5 3 Active Nystatin 095020 UNIT/ML Mouth/Throat Suspension Swish and swallow 5 [...] giving this. 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 Name/Company sending fax: [facility] What fax is pertaining to: [employer] Date(s) they sent request: 12/04/22- resending today Verified fax number they are sending to is correct (Y or N): y Callback Number for the clinic to call to verified if fax was received: [phone] * Telephone Encounter - Angie Castro RPh - 12/05/2022 2:09 PM EDT No [facility] in [facility] office today. Routing to check for paperwork tomorrow when RP returns. Angie Castro RPh, PharmD Clinical Pharmacist - Phlebotomist Lab Assistant [facility] 12/05/2022, 2:09 PM Ph.[phone] * Telephone Encounter - DENG Canales - 12/05/2022 10:19 AM EDT Received a call asking if fax was received by office. Name/Company sending fax: [employer] What fax is pertaining to: [employer] Date(s) they sent request: 11-26-22, 11-29-22, 12-03-22, 12-04-22. Verified fax number they are sending to is correct (Y or N): Yes, Main & Private Callback Number for the clinic to call to verified if fax was received: [phone] * Telephone Encounter - Cheryl Mark RPh [...] [facility] Lashay Blevins PA-C [address] [place] [address] Beverly Lozoya [address] [place] [address] 12/27/2022 Cardiac Studies Cardiac Studies 12/30/2022 [facility]medicine [facility] [place] [id number] [facility] [address] 01/13/2023 Office Visit Cardiology Sobia Brewster PA-C [address] [place] [address] 01/22/2023 Office Visit Infectious Disease Vidya Fabian MD [address] [place] [address] 04/09/2023 Office Visit Urology Alfredo Panda MD [address] [place] [address] 04/28/2023 Office Visit Family Medicine Brian Domínguez MD [address] [place] [address] 05/09/2023 Office Visit Gastroenterology Wendy Frias, DO [address] [place] [address] Scheduled Procedures Name Priority Associated Diagnoses Date/Ti [...] Additional history exists CKD PHOS USE SMARTSET 00213 10/24/202310/05, 02/18/2022, 02/17/2022, Additional history exists TSH 10/24/2023 10/23/2022, 02/05, 09/24/2021, Additional history exists CKD HGB USE SMARTSET 22391 11/22/202311/21, 11/21/2022, 04/25/2022, Additional history exists Colonoscopy [...] this encounter Medical Devices Implanted Type Area Digital Sales Assistant Device Identifier Shelf Expiration Date Model / Serial / Lot Sut Bob 6 M654g - [id number] Implanted:Qty: 1 on 02/15/2011 [place] [facility] [place]/A: Chest DO NOT USE 07/21/2015 [id number] / / [id number] documented as of this encounter Advance Directives Documents on File Type Date Recorded Patient Strategic Marketing Leader Expl anation POL 05/06/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 Question Answer Comments Discussion of Advance Directives occurred with: Patient Does the patient have a Living Will? No Does the patient have Health Care Power of Emergency Medicine? No Code Status History Code Status Date [...] the patient have Health Care Power of Emergency Medicine? No Full Code 02/01/2010 4:02 PM 02/02/2010 4:09 PM This order reflects the patients wishes and were consensually agreed upon. Question Answer Comments Discussion of Advance Directives occurred with: Not Discussed Does the patient have a Living Will? No Does the patient have Health Care Power of Emergency Medicine? No Healthcare Agents on File Name Relationship Healthcare Agent [facility] p Communication Carolyn Goldmandrewnabila Adult Child Health Care Agent Care Teams Architectural Design Professor Relationship Specialty Start Date End Date Brian Domínguez MD [address] [place] [address] PCP - General Family Medicine 07/16/17 documented as of this encounter
--- OUTSIDE RECORDS SUMMARY | 2023-05-17 12:22 | External Medical Summary | Summary of Care ---
Author Name Unknown Organization [facility] Address [address] [place] [address] Phone [phone] Care Team Providers Care Complex Human Resources Manager Name Role Phone Brian Domínguez MD Primary Care Provider +1- [phone] Reason for Visit * Reason Onset Date Comments Order Request 12/03/2022 Encounter Details Date Type Department Care Team Description 12/03/2022 Telephone [facility] [address] [place] [address] Brian Domínguez MD [address] [place] [address] Order Request Allergies Active Allergy [...] Active venlafaxine XR (EFFEXOR XR) 150 MG [id number]:Dep ression Take 1 Cap by mouth daily. With food. 30 Cap 5 09/02/2016 Active Additional Information Patient taking differently: 225 mgOral Daily(AM), With food.,Indications: Takes 225 mg total every morning with food (150 mg tab + 75 mg tab), Reported on 06/24/2022 Blood Glucose Monitoring Suppl (ZaBeCor Pharmaceuticals-Incisive Surgical GLUCOMETER) w/Device KITIndications:Unco ntrolled type 2 diabetes mellitus without complication, without long-term current use of insulin Use as directed. Use as directed once daily 1 Kit 0 11/18/2017 Active Blood Glucose Monitoring Suppl (NeoVistaIO) w/Device KIT Use as directed. Use as directed. 1 Kit 0 10/31/2018 Active Spacer/Aero-Holding Chambers WISAM Use with inhaler. Wheezing/bronchitis . 1 Device 0 04/08/2019 Active SynapticMash DelBandhappy Lancets 33G MISC USE UP TO FOUR TIMES A DAY Dx:E11.4 100 Each 5 09/30/2019 Active Lancet Devices (ChartboostUCH DELICA LANCING DEV) MISC Use four times [...] 238 g 0 03/19/2022 Active UltiCare Pen [place] 31G X 5 MM (Insulin Pen [...] Respimat 2.5 MCG/ACT Inhalation Aerosol Solution (Tiotropium [employer] Monohydrate) Inhale by mouth 2 Puffs in [...] Oral Tablet (Demadex)Indication s:Atherosclerotic heart disease of [place] coronary artery with other forms of angina [...] 06/05/2022 Active Vitamin D (Ergocalciferol) 1.25 MG (60619 UT) Oral Capsule (Drisdol)Indication s:Vitamin D deficiency [...] DAILY 60 Capsule 5 08/22/2022 Active Nystatin 818042 UNIT/ML Mouth/Throat Suspension Swish and swallow 5 [...] mg daily Atherosclerotic heart diseas e of [place] coronary artery with other forms of angina pectoris 11/15/2021 Last Assessment & Plan: Stable. No angina -continue toprol, ASA and statin Seasonal allergies 11/15/2021 Recurrent UTI 10/07/2021 Last Assessment & Plan: Followed by urology Pt is supposed to be on methenamine--will need to clarify with dgt that she is giving this. 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 Anxiety 08/05/2017 Veebkad-Luwye-Kqvps disease 06/27/2015 Last Assessment & Plan: Frequent [...] 05/06/2018 019 Atherosclerotic heart diseas e of [place] coronary artery with other forms of angina [...] 10/31/201008/08 Acute coronary syndrome 10/30/2010 01/22/20 14 SHE[place] Research Other*[id number] 02/02/2010 04/18/2014 Overview: [place] Registry, Dr Joel CASAS Obesity, morbid (more [...] 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/2014 long term care administrator current use of anticoagulant therapy 1 08/18/2005 [...] EDT order request for a free style harjinder is being sent to the office to please complete documented in this encounter Plan of Treatment Upcoming Encounters Date Type Specialty Care Team Description 12/04/2022 Imaging Radiology 12/05/2022 Laboratory Laboratory Processing [facility] [place] Mobile Home Draw [address] [place], [place] [id number] 12/17/2022 Telemedicine [facility] Lashay Blevins PA-C [address] [place] [address] Beverly Lozoya, [facility] [address] [place] [id number] 12/27/2022 Cardiac Studies Cardiac Studies 12/30/2022 Telemedicine Pharmacy [facility] [address] [place] [address] 01/13/2023 Office Visit Cardiology Sobia Brewster PA-C [address] [place] [address] 01/22/2023 Office Visit Infectious Disease Vidya Fabian MD [address] [place] [address] 04/09/2023 Office Visit Urology Alfredo Panda MD [address] [facility] [address] [place] [address] 04/28/2023 Office Visit Family Medicine Brian Domínguez MD [address] [place] [address] 05/09/2023 Office Visit Gastroenterology Wendy Frias DO [address] [place] [address] Scheduled Procedures Name Priority Associated Diagnoses Date/Ti [...] Additional history exists CKD PHOS USE SMARTSET 26931 10/24/202310/05, 02/18/2022, 02/17/2022, Additional history exists TSH 10/24/2023 10/23/2022, 02/05, 09/24/2021, Additional history exists CKD HGB USE SMARTSET 16019 11/22/202311/21, 11/21/2022, 04/25/2022, Additional history exists Colonoscopy [...] this encounter Medical Devices Implanted Type Area Landing Signal Officer Device Identifier Shelf Expiration Date Model / Serial / Lot Jenna Rojas 6 M654g - [id number] Implanted:Qty: 1 on 02/15/2011 at OR [facility] [place] N/A: Chest DO NOT USE 07/21/2015 [id number] / / [id number] documented as of this encounter Advance Directives Documents on File Type Date Recorded Patient Compressor Operator Portable 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 Question Answer Comments Discussion of Advance Directives occurred with: Patient Does the patient have a Living Will? No Does the patient have Health Care Power of Line Maintainer? No Code Status History Code Status Date [...] the patient have Health Care Power of Line Maintainer? No Full Code 02/01/2010 4:02 PM 02/02/2010 4:09 PM This order reflects the patients wishes and were consensually agreed upon. Question Answer Comments Discussion of Advance Directives occurred with: Not Discussed Does the patient have a Living Will? No Does the patient have Health Care Power of Line Maintainer? No Healthcare Agents on File Name Relationship Healthcare Agent [facility] p Communication Carolyn Ballard Adult Child Health Care Agent Care Teams Complex Human Resources Manager Relationship Specialty Start Date End Date Brian Domínguez MD [address] [place] [address] PCP - General Family Medicine 07/16/17 documented as of this encounter
--- OUTSIDE RECORDS SUMMARY | 2023-05-17 12:23 | External Medical Summary | Summary of Care ---
Author Name Unknown Organization [facility] Address [address] [place] [address] Phone [phone] Care Team Providers Care Scientific Diver Name Role Phone Brian Domínguez MD Primary Care Provider [phone]- [phone] Reason for Visit * Reason Comments Appointment Encounter Details Date Type Department Care Team Description 11/29/2022 Pharmacy Pharmacy, [facility] [address] [place] [address] [facility] [address] [place] [address] Type 2 diabetes mellitus with stage 3a chronic kidney disease, with long-term current use of insulin ([facility])* Allergies Active Allergy Reactions Severity Noted Date [...] Active venlafaxine XR (EFFEXOR XR) 150 MG [id number]:Dep ression Take 1 Cap by mouth daily. With food. 30 Cap 5 09/02/2016 Active Additional Information Patient taking differently: 225 mgOral Daily(AM), With food.,Indications: Takes 225 mg total every morning with food (150 mg tab + 75 mg tab), Reported on 06/24/2022 Blood Glucose Monitoring Suppl (Dailyevent-GutCheck GLUCOMETER) w/Device KITIndications:Unco ntrolled type 2 diabetes mellitus without complication, without long-term current use of insulin Use as directed. Use as directed once daily 1 Kit 0 11/18/2017 Active Blood Glucose Monitoring Suppl ([place] VERIO) w/Device KIT Use as directed. Use as directed. 1 Kit 0 10/31/2018 Active Spacer/Aero-Holding Chambers WISAM Use with inhaler. Wheezing/bronchitis . 1 Device 0 04/08/2019 Active [employer] DelMakers Alley Lancets 33G MISC USE UP TO FOUR TIMES A DAY Dx:E11.4 100 Each 5 09/30/2019 Active Lancet Devices (FinexkapUCH DELICA LANCING DEV) MISC Use four times [...] 238 g 0 03/19/2022 Active UltiCare Pen [place] 31G X 5 MM (Insulin Pen Needle) [...] Respimat 2.5 MCG/ACT Inhalation Aerosol Solution (Tiotropium [place] Monohydrate) Inhale by mouth 2 Puffs in [...] (Demadex)Indication s:Atherosclerotic heart disease of [place] coronary artery with other forms of angina [...] 06/05/2022 Active Vitamin D (Ergocalciferol) 1.25 MG (26794 UT) Oral Capsule (Drisdol)Indication s:Vitamin D deficiency [...] DAILY 60 Capsule 5 08/22/2022 Active Nystatin 055499 UNIT/ML Mouth/Throat Suspension Swish and swallow 5 [...] the morning. 90 Tablet 0 10/23/2022 Active clonazePAM 0.5 MG Oral Tablet (KlonoPIN)Indicatio ns:Bipolar I disorder, most recent episode depressed, moderate (HCC) TAKE ONE TABLET BY MOUTH THREE TIMES DAILY 90 Tablet 0 10/31/2022 Active Morphine Sulfate ER 15 MG Oral Tablet Extended Release (Ms Contin)Indications: Lumbar spondylosis Take 1 Tablet by mouth at bedtime as needed for Pain, Severe. 30 Tablet 0 10/31/2022 Active oxyCODONE HCl 5 MG Oral Tablet (Oxy IR)Indications:Lumb ar spondylosis Take 1 Tablet by mouth every 8 hours as needed (pain). 60 Tablet 0 10/31/2022 Active Potassium Chloride Mag ER 20 MEQ [...] TWICE DAILY 60 Tablet 0 11/19/2022 Active Hospital, Clinic, or Other Facility Administered [...] Atherosclerotic heart diseas e of [place] coronary artery with other forms of angina pectoris 11/15/2021 Last Assessment & Plan: Stable. No angina -continue toprol, ASA and statin Seasonal allergies 11/15/2021 Recurrent UTI 10/07/2021 Last Assessment & Plan: Followed by urology Pt is supposed to be on methenamine--will need to clarify with dgt that she is giving this. 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 Anxiety 08/05/2017 Rbqpdsz-Nchig-Ejyra disease 06/27/2015 Last Assessment & Plan: Frequent [...] Atherosclerotic heart diseas e of [place] coronary artery with other forms of angina [...] 10/31/201008/08 Acute coronary syndrome 10/30/2010 01/22/20 14 [employer] Other*[id number] 02/02/2010 04/18/2014 Overview: [place] Registry, Dr Joel Kwno PI Obesity, morbid (more than 1 00 [...] as of this encounter Progress Notes * RASHI Isaac - 11/29/2022 8:40 AM EDT Patient Phone Numbers Sent Silvercarer message to schedule [facility] appointment for diabetes management. MyTagbrander message sent --yes Clinic will follow up again in 4 week(s). [Attempt # 1] Thank you, Lucretia Faulkner Realtime Captioner 11/29/2022,8:40 AM documented in this encounter Plan of Treatment Upcoming Encounters Date Type Specialty Care Team Description 12/05/2022 Laboratory Laboratory Processing [facility], [facility] Mobile Home Draw [address] [place] [address] 12/17/2022 Telemedicine [facility] Lashay Blevins PA-C [address], [place] [id number] Beverly Lozoya, Community [facility] Car Dumper Operator Helper [address] [place] [address] [place] [address] 12/27/2022 Cardiac Studies Cardiac Studies 12/27/2022 Pharmacy Pharmacy [facility] [address] [place] [address] 01/13/2023 Office Visit Cardiology Sobia Brewster PA-C [address] [place] [address] 01/22/2023 Office Visit Infectious Disease Vidya Fabian MD [address] [place] [address] 04/09/2023 Office Visit Urology Alfredo Panda MD [address] [place] [address] 04/28/2023 Office Visit Family Medicine Brian Domínguez MD [address] [place] [address] 05/09/2023 Office Visit Gastroenterology Wendy Frias, DO [address] [place] [address] Scheduled Procedures Name Priority Associated Diagnoses Date/Ti [...] Additional history exists CKD PHOS USE SMARTSET 74239 10/24/202310/05, 02/18/2022, 02/17/2022, Additional history exists TSH 10/24/2023 10/23/2022, 02/05, 09/24/2021, Additional history exists CKD HGB USE SMARTSET 69491 11/22/202311/21, 11/21/2022, 04/25/2022, Additional history exists Colonoscopy [...] this encounter Medical Devices Implanted Type Area Zone Supervisor Firearms Device Identifier Shelf Expiration Date Model / Serial / Lot Sut Bob 6 [id number] - [id number] Implanted:Qty: 1 on 02/15/2011 at OR [facility] N/A: Chest DO NOT USE 07/21/2015 [id number] / / [id number] documented as of this encounter Visit Diagnoses Diagnosis Type 2 diabetes mellitus with stage 3a chronic kidney disease, with long-term current use of insulin (HCC)- Primary documented in this encounter Advance Directives Documents on File Type Date Recorded Patient Patient Financial Representative 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 Question Answer Comments Discussion of Advance Directives occurred with: Patient Does the patient have a Living Will? No Does the patient have Health Care Power of Speech Pathology Teacher? No Code Status History Code Status [...] the patient have Health Care Power of Speech Pathology Teacher? No Full Code 02/01/2010 4:02 PM 02/02/2010 4:09 PM This order reflects the patients wishes and were consensually agreed upon. Question Answer Comments Discussion of Advance Directives occurred with: Not Discussed Does the patient have a Living Will? No Does the patient have Health Care Power of Speech Pathology Teacher? No Healthcare Agents on File Name Relationship Healthcare Agent [facility] p Communication Carolyn Ballard Adult Child Health Care Agent Care Teams Scientific Diver Relationship Specialty Start Date End Date Brian Domínguez MD [address] [place] [address] PCP - General Family Medicine 07/16/17 documented as of this encounter
--- OUTSIDE RECORDS SUMMARY | 2023-05-17 12:23 | External Medical Summary | Summary of Care ---
Author Name Unknown Organization [facility] Address [address] [place] [address] Phone [phone] Care Team Providers Care Library Sales Consultant Name Role Phone Brian Domínguez MD Primary Care Provider [phone]- [phone] Reason for Visit * Reason Comments Outpatient Testing Encounter Details Date Type Department Care Team Description 11/27/2022 Laboratory Laboratory [address] [place] [address] , Specimen Drop Off [address] [place] [address] Hyponatremia Allergies Active Allergy Reactions Severity Noted Date Comments Propoxyphene Hcl Rash Low 10/29/2010 Fentanyl Diarrhea Low 04/26/2010 anxiety Methocarbamol Medium 10/05/2020 Other reaction(s): Delirium Methocarbamol Low 04/15/2007 Zolpidem Low 10/05/2020 Other reaction(s): Confusion documented as of this encounter (statuses as of 11/27/2022) Medications Medication Sig Dispensed Refills Start Date End Date Status ARIPiprazole (ABILIFY) 2 MG Tablet Take 1 Tablet by mouth in the morning. 0 2015 Active venlafaxine XR (EFFEXOR XR) 150 MG [id number]:Dep ression Take 1 Cap by mouth daily. [...] 0 11/18/2017 Active Blood Glucose Monitoring Suppl ([employer] VERIO) w/Device KIT Use as directed. Use [...] 238 g 0 03/19/2022 Active UltiCare Pen [place] 31G X 5 MM (Insulin Pen Needle) USE ONE NEEDLE TWICE DAILY 200 Each 3 04/03/2022 Active Insulin Glargine Solostar 100 UNIT/ML Subcutaneous Solution Pen-injector (Basaglar KwikPen)Indications :Type 2 diabetes mellitus with diabetic neuropathy, with long-term current use of insulin ([facility]) Inject 30 units under the skin twice daily 45 mL 3 04/16/2022 Active Insulin Glargine Solostar 100 UNIT/ML Subcutaneous Solution Pen-injector (Basaglar KwikPen)Indications :Type 2 diabetes mellitus with diabetic neuropathy, with long-term current use of insulin ([facility]) Inject 30 units under the skin twice [...] Respimat 2.5 MCG/ACT Inhalation Aerosol Solution (Tiotropium [place] Monohydrate) Inhale by mouth 2 Puffs in [...] 06/05/2022 Active Vitamin D (Ergocalciferol) 1.25 MG (08597 UT) Oral Capsule (Drisdol)Indication s:Vitamin D deficiency [...] DAILY 60 Capsule 5 08/22/2022 Active Nystatin 644805 UNIT/ML Mouth/Throat Suspension Swish and swallow 5 [...] as of this encounter (statuses as of 11/27/2022) Active Problems Problem Noted Date Hypertensive heart [...] giving this. 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/2014 rat exterminator current use of anticoagulant therapy 1 [...] as of this encounter (statuses as of 11/27/2022) Immunizations Name Administration Dates Next Due COVID-19 [...] Specialty Care Team Description 11/29/2022 Pharmacy Pharmacy [facility] [address], [place] [id number] 12/05/2022 Laboratory Laboratory Processing [facility] Mobile Home Draw [address] [place] [address] 12/17/2022 Telemedicine [facility] Lashay Blevins PA-C [address] [place] [address] Beverly Lozoya, Community [facility] [address] [place] [address] 12/27/2022 Cardiac Studies Cardiac Studies 01/13/2023 Office Visit Cardiology Sobia Brewster PA-C [address] [place] [address] 01/22/2023 Office Visit Infectious Disease Vidya Fabian MD [address] [place] [address] 04/09/2023 Office Visit Urology Alfredo Panda MD [address] [place] [address] 04/28/2023 Office Visit Family Medicine Brian Domínguez MD [address] [place] [address] 05/09/2023 Office Visit Gastroenterology Wendy Frias, DO [address] [place] [address] Pending Results Name Type Priority Associated Diagnoses Date /Time OSMOLALITY, URINE Lab Routine Hyponatremia 11/27/2022 3:22 PM EDT SODIUM, RANDOM URINE Lab Routine Hyponatremia 11/27/2022 3:22 PM EDT Scheduled Procedures Name Priority Associated [...] Additional history exists CKD PHOS USE SMARTSET 29761 10/24/202310/05, 02/18/2022, 02/17/2022, Additional history exists TSH 10/24/2023 10/23/2022, 02/05, 09/24/2021, Additional history exists CKD HGB USE SMARTSET 26328 11/22/202311/21, 11/21/2022, 04/25/2022, Additional history exists Colonoscopy [...] this encounter Medical Devices Implanted Type Area Release And Technical Records Clerk Device Identifier Shelf Expiration Date Model / Serial / Lot Sut Steel 6 [id number] - [id number] Implanted:Qty: 1 on 02/15/2011 at OR [facility] N/A: Chest DO NOT USE 07/21/2015 [id number] / / [id number] documented as of this encounter Visit Diagnoses Diagnosis Hyponatremia Hyposmolality and/or hyponatremia documented in this encounter Advance Directives Documents on File Type Date Recorded Patient Cycle Manager Expl anation POLST 05/06/2018 POLST Latest [...] the patient have Health Care Power of Gluing Pressman? No Code Status History Code Status Date [...] the patient have Health Care Power of Gluing Pressman? No Full Code 02/01/2010 4:02 PM 02/02/2010 4:09 PM This order reflects the patients wishes and were consensually agreed upon. Question Answer Comments Discussion of Advance Directives occurred with: Not Discussed Does the patient have a Living Will? No Does the patient have Health Care Power of Gluing Pressman? No Healthcare Agents on File Name Relationship Healthcare Agent [facility] Communication Carolyn Goldmandrewnabila Adult Child Health Care Agent Care Teams Library Sales Consultant Relationship Specialty Start Date End Date Brian Domníguez MD [address] [place] [address] PCP - General Family Medicine 07/16/17 documented as of this encounter
--- OUTSIDE RECORDS SUMMARY | 2023-05-17 12:23 | External Medical Summary | Summary of Care ---
Author Name Unknown Organization [facility] Address [address] [place] [address] Phone [phone] Care Team Providers Care Sap Data Analyst Name Role Phone Brian Domínguez MD Primary Care Provider [phone] Reason for Referral * Evaluate & Treat - Unlimited Visits (Within 30 days (routine)) - Authorized Specialty Diagnoses / Procedures Referred By Mitchell chavez Referred To Contact HOME CARE / Home Care Diagnoses Muscular deconditioning Brian Domínguez MD [address] [place] [address] Referral ID Status Reason Start Date Expiration Date Visits Requested Visits Authorized [id number] Authorized Specialty Services Required 11/26/[phone] Question Answer Referral Priority Within 30 days (routine) Comments For home PT - she is considered homebound Reason for Visit * Reason Comments Status Check Encounter Details Date Type Department Care Team Description 11/26/2022 Office Visit [facility] [address] [place] [id number] Brian Domínguez MD [address] [place] [address] Hyponatremia*; Muscular deconditioning; Portal hypertension (HCC); 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); Bipolar I disorder, most recent episode depressed, moderate (HCC); 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); Narcotic bowel syndrome (HCC); Diabetic gastroparesis (HCC); Hypothyroidism, unspecified type; Type 2 diabetes mellitus with diabetic neuropathy, with long-term current use of insulin (HCC); Type 2 diabetes mellitus with stage 3a chronic kidney disease, with long-term current use of insulin (HCC); Chronic liver disease and cirrhosis (HCC) Allergies Active Allergy Reactions Severity Noted Date Comments Propoxyphene Hcl Rash Low 10/29/2010 Fentanyl Diarrhea Low 04/26/2010 anxiety Methocarbamol Medium 10/05/2020 Other reaction(s): Delirium Methocarbamol Low 04/15/2007 Zolpidem Low 10/05/2020 Other reaction(s): Confusion documented as of this encounter (statuses as of 11/26/2022) Medications Medication Sig Dispensed Refills Start Date End Date Status ARIPiprazole (ABILIFY) 2 MG Tablet Take 1 Tablet by mouth in the morning. 0 6 Active venlafaxine XR (EFFEXOR XR) 150 MG [id number]:Dep ression Take 1 Cap by mouth daily. [...] 0 8 Active Blood Glucose Monitoring Suppl (Group Therapy Records VERIO) w/Device KIT Use as directed. Use [...] 238 g 0 2 Active UltiCare Pen Gate 31G X 5 MM (Insulin Pen Needle) [...] neuropathy, with long-term current use of insulin ([facility]) Inject 30 units under the [...] Respimat 2.5 MCG/ACT Inhalation Aerosol Solution (Tiotropium [place] Monohydrate) Inhale by mouth 2 Puffs in [...] Oral Tablet (Demadex)Indication s:Atherosclerotic heart disease of tling[place] & [place] coronary artery with other forms of angina [...] 2 Active Vitamin D (Ergocalciferol) 1.25 MG (64665 UT) Oral Capsule (Drisdol)Indication s:Vitamin D deficiency [...] or chew 50 Capsule 0 3 Active PF Management Services Disposable Nebulizer Kit Use as directed 1 [...] DAILY 60 Capsule 5 3 Active Nystatin 016438 UNIT/ML Mouth/Throat Suspension Swish and swallow 5 [...] the morning. 90 Tablet 0 3 Active clonazePAM 0.5 [...] additional torsemide 30 Tablet 0 3 Active Albuterol Sulfate HFA [...] TWICE DAILY 60 Tablet 0 3 Active Fosfomycin Tromethamine 3 GM Oral Packet (Monurol) Take 3 g by mouth every 3 days. 1 Packet 0 3 11/27/19 Discontinu ed(Medicat ion List Clean Up) Hospital, Clinic, or Other Facility Administered Medication [...] as of this encounter (statuses as of 11/26/2022) Active Problems Problem Noted Date Hypertensive heart and kidne y disease with chronic diastolic congestive heart failure and stage 3a chronic kidney disease 12/28/2021 Last Assessment & Plan: Euvolemic, BP stable EF 55% 09/25 GFR 69 02/25 -Continue Torsemide 20 mg BID, Spironolactone 25 mg BID, Tropol XL 50 mg daily Atherosclerotic heart diseas e of tling[place] & [place] coronary artery with other forms of angina pectoris 11/15/2021 Last Assessment & Plan: Stable. No angina -continue toprol, ASA and statin Seasonal allergies 11/15/2021 Recurrent UTI 10/07/2021 Last Assessment & Plan: Followed by urology Pt is supposed to be on methenamine--will need to clarify with dgt that she is giving this. 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-statistical reporting analyst and ID Type 2 diabetes mellitus [...] drugs Pelvic pain 03/27/2021 Urge incontinence 03/27/2021 lumber straightened (current) use of insulin 09/28 Diabetic gastroparesis [...] 05/06/2018 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 Anxiety 08/05/2017 Ggewkqv-Npsff-Hwhri disease 06/27/2015 Last Assessment & Plan: Frequent [...] as of this encounter (statuses as of 11/26/2022) Resolved Problems Problem Noted Date Resolved Date [...] 05/06/2018 019 Atherosclerotic heart diseas e of tling[place] & ha[place] coronary artery with other forms of angina [...] 10/31/201008/08 Acute coronary syndrome 10/30/2010 01/22/20 14 NEW [employer] Research Other*[id number] 02/02/2010 04/18/2014 Overview: [facility], Dr Althea Kwon PI Obesity, morbid [...] Duplicate Protocol #2. 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/2014 shelter current use of anticoagulant therapy 1 08/18/2005 [...] as of this encounter (statuses as of 11/26/2022) Immunizations Name Administration Dates Next Due COVID-19 [...] Sign Reading Time Taken Comments Blood Pressure 118/64 11/26/2022 10:49 AM EDT Pulse 63 11/26/2022 10:49 AM EDT Temperature 36.9 C (98.4 F) 11/26/2022 10:49 AM E DT Respiratory Rate - - Oxygen Saturation 95% 11/26/2022 10:49 AM EDT Inhaled Oxygen Concentration - - Weight 112 kg (247 lb) 11/26/2022 10:49 AM EDT Height - - Body Mass Index 37.56 10/23/2022 2:36 PM EDT documented in this encounter Progress Notes * Brian Domínguez MD - 11/26/2022 11:42 AM EDT Subjective: Angelina Ballard is a 72 year old female here today for Chief Complaint Patient presents with Status Check Patient presents for routine recheck. She is having some swelling in the right greater than left lower extremity. She is having some increased swelling in the abdomen. Reports she is been told in thepast it is fluid. Is taking spironolactone and torsemide. About once or twice a month takes an extra dose of torsemide. An ultrasound of the abd was ordered a few months ago - but has not yet been completed. She has had continued cough which has been evaluated by Pulmonary Medicine. Family reports that she has been told it could be a residual cough from COVID. Most recent hemoglobin A1c was excellent. [facility] is involved. Patient recently was given a course of antibiotic for probable r espiratory infection and urinary tract infection. She has completed that course of antibiotic. She does continue to difficulties related to gastroparesis. She feels nauseous regularly. Symptoms likely exacerbated by narcotic use. Has been found to have hyponatremia recently and worsened on recheck. Pt and daughter are hoping that she can get PT in the home. She leaves the home 1-2 times per month. Past Medical History: Diagnosis Date ASCVD (arteriosclerotic [...] Laterality Date ANESTHESIA, HEART CATHETERIZATION 06/04/12 at [facility] ARTHROPLASTY KNEE TOTAL right CABG, ARTERIAL, SINGLE 02/15/2011 CORONARY ARTERY BYPASS GRAFT USING ARTERY 1 GRAFT performed by TIERNEY GUERRERO at OR [facility] CATHETERIZE LEFT HEART THRU SKIN 04/11/09 LEFT HEART CATH, PERCUTANEOUS performed by GINGER FISHER at [facility]ARDI[facility] LABS [facility] CATHETERIZE LEFT HEART THRU SKIN 02/01/2010 LEFT HEART CATH, PERCUTANEOUS performed by ALTHEA KWON at [facility] CATHETERIZE LEFT HEART THRU SKIN 04/03/2010 LEFT HEART CATH, PERCUTANEOUS performed by GARCIA SOSA at [facility]ARD[facility]S [facility] COLONOSCOPY, DIAGNOSTIC (RECTUM) 05/20/2014 normal, repeat 10 yrs/done @ [facility] CORONARY ANGIOGRAPHY W/LEFT HEART CATH 10/29/2010 CORONARY ANGIOGRAPHY W/LEFT HEART CATH performed by ANNIE SEVILLA at [facility] EGD, FLEXIBLE, DIAGNOSTIC 12/05/2017 portal hypertensive gastropathy/[facility] EGD, FLEXIBLE, DIAGNOSTIC 10/25/2022 ESOPHAGOGASTRODUODENOSCOPY (EGD), FLEXIBLE, TRANSORAL, DIAGNOSTIC performed by Raghavendra Medrano MD at ENDOSCOPY [facility] EGD, W/ENDOSCOPIC US 06/26/2011 UPPER GI ENDOSCOPY ENDOSCOPIC ULTRASOUND performed by RACHEL BAHENA at ENDOSCOPY [facility] OTHER nerve biopsy right calf REMOVAL OF APPENDIX REMOVE ADDED SPINE LAMINA, 1 SEG 07/14 Dr. Saleem L4-L5 REMOVE GALLBLADDER TOTAL ABD HYSTERECTOMY W/WO REMOVAL OF TUBE(S) Review of patient's allergies indicates: Allergen Reactions [...] 1 Kit 0 Blood Glucose Monitoring Suppl (Group Therapy Records VERIO) w/Device KIT Use as directed. Use as directed. 1 Kit 0 Spacer/Aero-Holding Chambers WISAM Use with inhaler. Wheezing/bronchitis. 1 Device 0 flipClass Lancets 33G MISC USE UP TO FOUR TIMES A DAY Dx:E11.4 100 Each 5 Lancet Devices (Tactile Systems TechnologyUCH DELICA LANCING DEV) MISC Use four [...] a day with levemir 100 Each 5 Dicyclomine HCl 10 MG Oral Capsule (Bentyl) TAKE ONE CAPSULE BY MOUTH FOUR TIMES DAILY NEEDED FOR ABDOMINAL PAIN 120 Capsule 1 Nitroglycerin 0.4 MG Sublingual Tablet Sublingual (Nitrostat) Place under the tongue 1 Tablet every 5 minutes as needed for Pain, Chest. Max dose 3 tablets in 15 minutes 25 Tablet 5 Lactulose 10 GM/15ML Oral Solution (Constulose) TAKE 45 ML BY MOUTH TWICE DAILY DIRECTED 2700 mL 5 Ondansetron HCl 8 MG Oral Tablet (Zofran) TAKE ONE TABLET BY MOUTH EVERY EIGHT HOURS NEEDED FOR NAUSEA 60 Tablet 5 Budesonide-Formoterol Fumarate 160-4.5 MCG/ACT Inhalation Aerosol (Symbicort) Inhale by mouth 2Puffs in the morning AND 2 Puffs before bedtime. 10.2 g 12 lamoTRIgine 100 MG Oral Tablet (LaMICtal) Take 1 Tablet by mouth every morning. 30 Tablet 5 Levothyroxine Sodium 88 MCG Oral Tablet (Levoxyl) TAKE 1 TABLET BY MOUTH ONCE DAILY at least 30minutes before breakfast and other medications 90 Tablet 3 Polyethylene Glycol 3350 17 GM/SCOOP Oral Powder (Miralax) USE 1/2 OF BOTTLE IN 32 OUNCES OF GATORADE THE DAY BEFORE AND THE DAY OF PROCEDURE DIRECTED 238 g 0 UltiCare Pen Gate 31G X 5 MM (Insulin Pen Needle) [...] Respimat 2.5 MCG/ACT Inhalation Aerosol Solution (Tiotropium [place] Monohydrate) Inhale by mouth 2 Puffs in [...] g 3 Vitamin D (Ergocalciferol) 1.25 MG (74367 UT) Oral Capsule (Drisdol) TAKE ONE CAPSULE [...] MOUTH TWICE DAILY 60 Capsule 5 Nystatin 988755 UNIT/ML Mouth/Throat Suspension Swish and swallow 5 [...] by mouth in the evening every day Pantoprazole Sodium 40 MG Oral Tablet Delayed Release (Protonix) TAKE ONE TABLET BY MOUTH IN THE MORNING AND ONE TABLET IN THE EVENING 60 Tablet 0 metFORMIN HCl ER 500 MG Oral Tablet Extended Release 24 Hour (Glucophage XR) Take 1 Tablet by mouth daily with dinner. 30 Tablet 5 Famotidine 40 MG Oral Tablet (Pepcid) Take 1 Tablet by mouth in the morning. 90 Tablet 1 Sucralfate 1 GM Oral Tablet (Carafate) Take 1 Tablet by mouth in the morning. 90 Tablet 0 clonazePAM 0.5 MG Oral Tablet [...] when taking additional torsemide 30 Tablet 0 Albuterol Sulfate HFA 108 (90 [...] BY MOUTH TWICE DAILY 60 Tablet 0 Current Facility-Administered Medications Medication Dose Route Frequency Provider Last Rate Last Admin Albuterol Sulfate (Proventil) (2.5 MG/3ML) 0.083% inhalation solution 2.5 mg 2.5 mg Nebulizer PRN Melchor Kwon MD Albuterol Sulfate (Proventil) (5 MG/ML) 0.5% *conc* inhalation solution 2.5 mg 2.5 mg NebulizerPRN Melchor Kwon MD Objective: BP 118/64 | Pulse 63 | Temp 36.9 C (98.4 F) (Tympanic) | Wt 112 kg (247 lb) | SpO2 95% | BMI 37.56 kg/m | BSA 2.32 m GEN: NAD HEENT: Benign NECK: Supple with no LAD, TM, JVD CHEST: scattered rhonchi and congestion. CV: RRR ABD: Soft, NT/ND, No HSM, NABS EXT: trace left > right edema Assessment and Plan: Hyponatremia (Primary) - OSMOLALITY, URINE; Future; Expected date: 11/26/2022 - SODIUM, RANDOM URINE; Future; Expected date: 11/26/2022 - OSMOLALITY, SERUM; Future; Expected date: 11/26/2022 - BASIC METABOLIC PANEL; Future; Expected date: 11/26/2022 -obtain labs for further eval. Muscular deconditioning - HOME HEALTH REFERRAL OP for PT in the home. Portal hypertension (HCC) Narcotic bowel syndrome (HCC) Chronic liver disease and cirrhosis (HCC) Diabetic gastroparesis (HCC) -follow up with GI. Continue current treatments. -may work to reschedule ultrasound. -? Motility clinic. 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 Continue same treatments Follow Up: Return in about 4 months (around 03/29/2023) for video or in person. | For: video or in person 43 min with pt, chart review, documentation Brian Domínguez MD documented in this encounter Nursing Notes * Melany Pond LPN - 11/26/2022 10:48 AM EDT The patient has been properly identified by confirmation of name and date of . Chief Complaint Patient presents with Status Check Return visit Swelling in left leg and foot-off and on but it won't seem to go away for good. Complains of abdominal bloating-says she was told this was "fluid" even though she is on a "fluid pill". Cough for a long time-recently finished antibiotics but now coughing up green mucous. documented in this encounter Plan of Treatment Upcoming Encounters Date Type Specialty Care Team Description 11/27/2022 Telemedicine [facility] Lashay Blevins PA-C [address] [place] [address] Beverly Lozoya, [facility] [address] [place] [id number] 11/29/2022 Pharmacy Pharmacy [facility] [address] [place] [address] 12/27/2022 Cardiac Studies Cardiac Studies 01/13/2023 Office Visit Cardiology Sobia Brewster PA-C [address] [place] [address] 01/22/2023 Office Visit Infectious Disease Vidya Fabian MD [address] [place] [address] 04/09/2023 Office Visit Urology Alfredo Panda MD [address] [facility] [place] [address] 04/28/2023 Office Visit Family Medicine Brian Domínguez MD [address] [place] [address] 05/09/2023 Office Visit Gastroenterology Wendy Frias, DO [address] [place] [address] Scheduled Orders Name Type Priority Associated Diagnoses Orde r Schedule OSMOLALITY, URINE Lab Routine Hyponatremia Expected: 11/26/2022 (Approximate), Expires: 11/26/2023 SODIUM, RANDOM URINE Lab Routine Hyponatremia Expected: 11/26/2022 (Approximate), Expires: 11/26/2023 OSMOLALITY, SERUM Lab Routine Hyponatremia Expected: 11/26/2022, Expires: 11/27/2023 BASIC METABOLIC PANEL Lab Routine Hyponatremia Expected: 11/26/2022 (Approximate), Expires: 11/26/2023 Scheduled Procedures Name Priority Associated Diagnoses Date/Ti me COLONOSCOPY FLEXIBLE PROXIMA L DIAGNOSTIC Recall Special screening for malignant neoplasms, colon Scheduled Referrals Name Type Priority Associated Diagnoses Orde r Schedule HOME HEALTH REFERRAL OP Referral Within 30 days (routine) Muscular deconditioning Ordered: 11/26/2022 Health Maintenance Due Date Last Done Comments [...] Additional history exists CKD PHOS USE SMARTSET 95796 10/24/202310/05, 02/18/2022, 02/17/2022, Additional history exists TSH 10/24/2023 10/23/2022, 02/05, 09/24/2021, Additional history exists CKD HGB USE SMARTSET 37127 11/22/202311/21, 11/21/2022, 04/25/2022, Additional history exists Colonoscopy [...] this encounter Medical Devices Implanted Type Area Interventional Physician Device Identifier Shelf Expiration Date Model / Serial / Lot Jenna Rojas 6 [id number] - [id number] Implanted:Qty: 1 on 02/15/2011 at OR [facility] N/A: Chest DO NOT USE 07/21/2015 [id number] / / [id number] documented as of this encounter Visit Diagnoses Diagnosis Hyponatremia- Primary Hyposmolality and/or hyponatremia Muscular deconditioning Muscular wasting and disuse atrophy, not elsewhere classified Portal hypertension (HCC) Portal hypertension 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) Bipolar I disorder, most recent episode depressed, moderate (HCC) Bipolar I disorder, most recent episode (or current) depressed, moderate 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) Diabetic gastroparesis (HCC) Type II or unspecified type diabetes mellitus with neurological manifestations, not stated as uncontrolled Hypothyroidism, unspecified type Type 2 diabetes mellitus with diabetic neuropathy, with long-term current use of insulin (HCC) Type 2 diabetes mellitus with stage 3a chronic kidney disease, with long-term current use of insulin (HCC) Chronic liver disease and cirrhosis (HCC) Unspecified chronic liver disease without mention of alcohol documented in this encounter Advance Directives Documents on File Type Date Recorded 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 No Code Status History Code Status Date [...] the patient have Health Care Power of Sailboat Captain? No Full Code 02/01/2010 4:02 PM 02/02/2010 4:09 PM This order reflects the patients wishes and were consensually agreed upon. Question Answer Comments Discussion of Advance Directives occurred with: Not Discussed Does the patient have a Living Will? No Does the patient have Health Care Power of Sailboat Captain? No Healthcare Agents on File Name Relationship Healthcare Agent [facility] Communication Carolyn Ballard Adult Child Health Care Agent Care Teams Sap Data Analyst Relationship Specialty Start Date End Date Brian Domínguez MD [address] [place] [address] PCP - General Family Medicine 07/16/17 documented as of this encounter
--- OUTSIDE RECORDS SUMMARY | 2023-05-17 12:23 | External Medical Summary | Summary of Care ---
Author Name Unknown Organization [facility] Address [address] [place] [address] Phone [phone] Care Team Providers Care Brick Maker Name Role Phone Brian Domínguez MD Primary Care Provider [phone]- [phone] Reason for Visit * Reason Onset Date Comments Follow Up 11/26/2022 Encounter Details Date Type Department Care Team Description 11/26/2022 Telephone [facility] [address] [place] [address] Brian Domínguez MD [address] [place] [address] Follow Up Allergies Active Allergy Reactions Severity Noted Date [...] Active venlafaxine XR (EFFEXOR XR) 150 MG [id number]:Dep ression Take 1 Cap by mouth daily. With food. 30 Cap 5 09/02/2016 Active Additional Information Patient taking differently: 225 mgOral Daily(AM), With food.,Indications: Takes 225 mg total every morning with food (150 mg tab + 75 mg tab), Reported on 06/24/2022 Blood Glucose Monitoring Suppl ([employer] GLUCOMETER) w/Device KITIndications:Unco ntrolled type 2 diabetes mellitus without complication, without long-term current use of insulin Use as directed. Use as directed once daily 1 Kit 0 11/18/2017 Active Blood Glucose Monitoring Suppl ([employer]an [employer] SystemsIO) w/Device KIT Use as directed. Use as directed. 1 Kit 0 10/31/2018 Active Spacer/Aero-Holding Chambers WISAM Use with inhaler. Wheezing/bronchitis . 1 Device 0 04/08/2019 Active [employer] DelAdvanced Battery Concepts Lancets 33G MISC USE UP TO FOUR TIMES A DAY Dx:E11.4 100 Each 5 09/30/2019 Active Lancet Devices (IZI Medical ProductsUCH DELICA LANCING DEV) MISC Use four times [...] 238 g 0 03/19/2022 Active UltiCare Pen [place] 31G X 5 MM (Insulin Pen Needle) USE ONE NEEDLE TWICE DAILY 200 Each 3 04/03/2022 Active Insulin Glargine Solostar 100 UNIT/ML Subcutaneous Solution Pen-injector (Basaglar KwikPen)Indications :Type 2 diabetes mellitus with diabetic neuropathy, with long-term current use of insulin ([facility]) Inject 30 units under the skin twice daily 45 mL 3 04/16/2022 Active Insulin Glargine Solostar 100 UNIT/ML Subcutaneous Solution Pen-injector (Basaglar KwikPen)Indications :Type 2 diabetes mellitus with diabetic neuropathy, with long-term current use of insulin ([facility]) Inject 30 units under the skin [...] Respimat 2.5 MCG/ACT Inhalation Aerosol Solution (Tiotropium [place] Monohydrate) Inhale by mouth 2 Puffs [...] Oral Tablet (Demadex)Indication s: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 No angina -continue toprol, ASA and statin Seasonal allergies 11/15/2021 Recurrent UTI 10/07/2021 Last Assessment & Plan: Followed by urology Pt is supposed to be on methenamine--will need to clarify with dgt that she is giving this. 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 11/27/2022 * Telephone Encounter - DENG Alvarado - 11/26/2022 3:04 PM EDT They will need a signed note. Once visit note from today is finished, the order can be sent to get her set up. * Telephone Encounter - Brian Domínguez MD - 11/26/2022 2:57 PM EDT Seen today - please see if we can set up home health nursing through [facility] to get home PT for patient. documented in this encounter Plan of Treatment Upcoming Encounters Date Type Specialty Care Team Description 11/27/2022 Telemedicine [facility] Lashay Blevins PA-Peter [address] [place] [address] Beverly Lozoya, Community Health Urologist Physician [address] [place] [address] [place] [address] 11/29/2022 Pharmacy [facility]acy [facility] [address] [place] [address] 12/27/2022 Cardiac Studies Cardiac Studies 01/13/2023 Office Visit Cardiology Sobia Brewster, PA-Peter [address] [place] [address] 01/22/2023 Office Visit Infectious Disease Vidya Fabian MD [address] [place] [address] 04/09/2023 Office Visit Urology Alfredo Panda MD [address] [place] [address] 04/28/2023 Office Visit Family Medicine Brian Domínguez MD [address] [place] [address] 05/09/2023 Office Visit Gastroenterology Wendy Frias DO [address] [place] [address] Scheduled Procedures Name Priority Associated Diagnoses Date/Ti [...] Additional history exists CKD PHOS USE SMARTSET 40852 10/24/202310/05, 02/18/2022, 02/17/2022, Additional history exists TSH 10/24/2023 10/23/2022, 02/05, 09/24/2021, Additional history exists CKD HGB USE SMARTSET 54386 11/22/202311/21, 11/21/2022, 04/25/2022, Additional history exists Colonoscopy [...] this encounter Medical Devices Implanted Type Area Recruit Instructor Device Identifier Shelf Expiration Date Model / Serial / Lot Sut Steel 6 [id number] - [id number] Implanted:Qty: 1 on 02/15/2011 at OR [facility] N/A: Chest DO NOT USE 07/21/2015 [id number] / / [id number] documented as of this encounter Advance Directives Documents on File Type Date Recorded Patient Harness Brusher Expl cheyanneion POL 05/06/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 Question Answer Comments Discussion of Advance Directives occurred with: Patient Does the patient have a Living Will? No Does the patient have Health Care Power of Plater Production? No Code Status History Code Status Date [...] the patient have Health Care Power of Plater Production? No Full Code 02/01/2010 4:02 PM 02/02/2010 4:09 PM This order reflects the patients wishes and were consensually agreed upon. Question Answer Comments Discussion of Advance Directives occurred with: Not Discussed Does the patient have a Living Will? No Does the patient have Health Care Power of Plater Production? No Healthcare Agents on File Name Relationship Healthcare Agent [facility] Communication Carolyn Ballard Adult Child Health Care Agent Care Teams Brick Maker Relationship Specialty Start Date End Date Brian Domínguez MD [address] [place] [address] PCP - General Family Medicine 07/16/17 documented as of this encounter
--- OUTSIDE RECORDS SUMMARY | 2023-05-17 12:23 | External Medical Summary | Summary of Care ---
Author Name Unknown Organization [facility] Address [address] [place] [address] Phone [phone] Care Team Providers Care Conductor Freight Name Role Phone Carmen Sifuentes MD Primary Care Provider [phone]- [phone] Reason for Visit * Reason Onset Date Comments Medication Refill 11/29/2022 Encounter Details Date Type Department Care Team Description 11/29/2022 Refill [facility] [address] [place] [address] Carmen Sifuentes MD [address] [place] [address] Lumbar spondylosis; Bipolar I disorder, most recent [...] Active venlafaxine XR (EFFEXOR XR) 150 MG [id number]:Dep ression Take 1 Cap by mouth daily. [...] 0 8 Active Blood Glucose Monitoring Suppl ([employer]) w/Device KIT Use as directed. Use as directed. 1 Kit 0 9 Active Spacer/Aero-Holding Chambers WISAM Use with inhaler. Wheezing/bronchiti s. 1 Device 0 9 Active Interactive Performance Solutionsuch Delica Lancets 33G MISC USE UP TO FOUR TIMES A DAY Dx:E11.4 100 Each 5 0 Active Lancet Devices (InkomerceUCH DELICA LANCING DEV) MISC Use four times [...] 238 g 0 2 Active UltiCare Pen [place] 31G X 5 MM (Insulin Pen Needle) [...] Respimat 2.5 MCG/ACT Inhalation Aerosol Solution (Tiotropium [place] Monohydrate) Inhale by mouth 2 Puffs in [...] Oral Tablet (Demadex)Indication s:Atherosclerotic heart disease of [place] coronary artery with other forms of angina [...] 2 Active Vitamin D (Ergocalciferol) 1.25 MG (26132 UT) Oral Capsule (Drisdol)Indication s:Vitamin D deficiency [...] or chew 50 Capsule 0 3 Active JoomeS Disposable Nebulizer Kit Use as directed 1 [...] DAILY 60 Capsule 5 3 Active Nystatin 428139 UNIT/ML Mouth/Throat Suspension Swish and swallow 5 [...] the morning. 90 Tablet 0 3 Active Potassium Chloride Mag [...] THREE TIMES DAILY 90 Tablet 0 3 11/30/19 23 Discontinu ed(Refill) Morphine Sulfate ER 15 MG Oral Tablet Extended Release (Ms Contin)Indications: Lumbar spondylosis Take 1 Tablet by mouth at bedtime as needed for Pain, Severe. 30 Tablet 0 3 11/30/19 23 Discontinu ed(Refill) oxyCODONE HCl 5 MG Oral Tablet (Oxy IR)Indications:Lumb ar spondylosis Take 1 Tablet by mouth every 8 hours as needed (pain). 60 Tablet 0 3 11/30/19 23 Discontinu ed(Refill) Hospital, Clinic, or Other [...] mg daily Atherosclerotic heart diseas e of [place] coronary artery with other forms of angina pectoris 11/15/2021 Last Assessment & Plan: Stable. No angina -continue toprol, ASA and statin Seasonal allergies 11/15/2021 Recurrent UTI 10/07/2021 Last Assessment & Plan: Followed by urology Pt is supposed to be on methenamine--will need to clarify with dgt that she is giving this. 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 Anxiety 08/05/2017 Oeiwydi-Fmvet-Tapyc disease 06/27/2015 Last Assessment & Plan: Frequent [...] 05/06/2018 019 Atherosclerotic heart diseas e of [place] coronary artery with other forms of angina [...] 10/31/201008/08 Acute coronary syndrome 10/30/2010 01/22/20 14 [place] Research Other*[id number] 02/02/2010 04/18/2014 Overview: [place] Registry, Dr Joel Kwon PI Obesity, morbid [...] Telephone Encounter - Carmen Sifuentes MD - 11/29/2022 10:52 AM EDTSigned Prescriptions: Disp Refills Morphine Sulfate ER 15 MG Oral Tablet Exte*30 Tab*0 Sig: Take 1 Tablet by mouth at bedtime as needed for Pain, Severe.Authorizing Provider: CARMEN SIFUENTES oxyCODONE HCl 5 MG Oral Tablet (Oxy IR) 60 Tab*0 Sig: Take 1 Tablet by mouth every 8 hours as needed (pain).Authorizing Provider: CARMEN SIFUENTES clonazePAM 0.5 MG Oral Tablet (KlonoPIN) 90 Tab*0 Sig: TAKE ONE TABLET BY MOUTH THREE TIMES DAILYAuthorizing Provider: CARMEN SIFUENTES * Telephone Encounter - Tona Boogie [facility] - 11/29/2022 8:43 AM EDTPending Prescriptions: Disp Refills Morphine Sulfate ER 15 MG Oral Tablet Exte*30 Tab*0 Sig: Take 1 Tablet by mouth at bedtime as needed for Pain, Severe. oxyCODONE HCl 5 MG Oral Tablet (Oxy IR) 60 Tab*0 Sig: Take 1 Tablet by mouth every 8 hours as needed (pain). clonazePAM 0.5 MG Oral Tablet (KlonoPIN) 90 Tab*0 Sig: TAKE ONE TABLET BY MOUTH T HREE TIMES DAILY * Telephone Encounter - Tona Boogie [facility] - 11/29/2022 8:41 AM EDT I have reviewed the patients controlled substance dispensing history in the Prescription Drug Monitoring Program in compliance with the [facility] regulations before prescribing a controlled substance. PDMP checked on 11/29/2022. Pending Prescriptions: Disp Refills Morphine Sulfate ER 15 MG Oral Tablet Ext*30 Tab*0 Sig: Take 1 Tablet by mouth at bedtime as needed for Pain, Severe. oxyCODONE HCl 5 MG Oral Tablet (Oxy IR) 60 Tab*0 Sig: Take 1 Tablet by mouth every 8 hours as needed (pain). clonazePAM 0.5 MG Oral Tablet (KlonoPIN) 90 Tab*0 Sig: TAKE ONE TABLET BY MOUTH THREE TIMES DAILY Last Visit: 11/26/2022 (in office), 03/06/2022 (telemedicine) Next Visit: 04/28/2023 Date medication was last filled: 10/31 (all meds) Date medication is due for refill: 11/29 [facility]acy: [facility] [address] [place] [address] Is this request for a controlled substance? Yes and Urine Drug Screen Not completed Toxicology results: No results found. However, due to the size of the patient record, not all encounters were searched.Please check Results Review for a complete set of results. Please approve if appropriate. Thank you, Tona Boogie, PharmD Clinical Pharmacist [facility] [phone] 11/29/2022, 8:42 AM * Telephone Encounter - Liz Reanna Karimi, [facility] - 11/29/2022 8:24 AM EDT Pt is out. Did you pend patient's preferred pharmacy and medication before forwarding?yes Pharmacy: [facility] [id number] Pending Prescriptions: Disp Refills Morphine Sulfate ER 15 MG Oral Tablet Ext*30 Tab*0 Sig: Take 1 Tablet by mouth at bedtime as needed for Pain, Severe. oxyCODONE HCl 5 MG Oral Tablet (Oxy IR) 60 Tab*0 Sig: Take 1 Tablet by mouth every 8 hours as needed (pain). clonazePAM 0.5 MG Oral Tablet (KlonoPIN) 90 Tab*0 Sig: TAKE ONE TABLET BY MOUTH THREE TIMES DAILY Last Visit: 11/26/2022 (in office), 03/06/2022 (telemedicine) Next Visit: 04/28/2023 If no future appointments scheduled, and last appointment is greater than a year ago, please schedule patient for a follow-up appointment Last date the medication was ordered: 10/31/22 Is this request for a controlled substance?Yes, What was the last refill date 10/31/22 w/ quantity 30, 60, 90 and dosage 15, 5, 0.5 mg and Urine Drug Screen Not completed [...] Specialty Care Team Description 11/29/2022 Pharmacy Pharmacy [address] [address] Type 2 diabetes mellitus with stage 3a chronic kidney disease, with long-term current use of insulin (HCC)* 12/05/2022 Laboratory Laboratory Processing [facility] [address] [place] [address] 12/17/2022 Telemedicine [facility] Lashay Blevins PA-C [address] [place], [place] [id number] Beverly Lozoya, Community Health [address] [place] [address] 12/27/2022 Cardiac Studies Cardiac Studies 12/27/2022 Pharmacy Pharmacy [facility] [address] [place] [address] 01/13/2023 Office Visit Cardiology Sobia Brewster PA-C [address] [place] [address] 01/22/2023 Office Visit Infectious Disease Vidya Fabian MD [address] [place] [address] 04/09/2023 Office Visit Urology Alfredo Panda MD [address] [place] [address] 04/28/2023 Office Visit Family Medicine Carmen Sifuentes MD [address] [place] [address] 05/09/2023 Office Visit Gastroenterology Wendy Frias DO [address] [place] [address] Scheduled Procedures Name Priority Associated Diagnoses Date/Ti [...] Additional history exists CKD PHOS USE SMARTSET 04547 10/24/202310/05, 02/18/2022, 02/17/2022, Additional history exists TSH 10/24/2023 10/23/2022, 02/05, 09/24/2021, Additional history exists CKD HGB USE SMARTSET 19702 11/22/202311/21, 11/21/2022, 04/25/2022, Additional history exists Colonoscopy [...] this encounter Medical Devices Implanted Type Area Credit Union Field Examiner Device Identifier Shelf Expiration Date Model / Serial / Lot Jenna Rojas 6 [id number] - [id number] Implanted:Qty: 1 on 02/15/2011 at OR [facility] [place] N/A: Chest DO NOT USE 07/21/2015 [id number] / / [id number] documented as of this encounter Visit Diagnoses Diagnosis Type 2 diabetes mellitus with stage 3a chronic kidney disease, with long-term current use of insulin (HCC)- Primary Lumbar spondylosis Lumbosacral spondylosis without myelopathy Bipolar I disorder, most recent episode depressed, moderate (HCC) Bipolar I disorder, most recent episode (or current) depressed, moderate documented in this encounter Advance Directives Documents on File Type Date Recorded Patient Ribbon Hand Expl anation POL 05/06/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 Question Answer Comments Discussion of Advance Directives occurred with: Patient Does the patient have a Living Will? No Does the patient have Health Care Power of Hose Operator? No Code Status History Code Status [...] the patient have Health Care Power of Hose Operator? No Full Code 02/01/2010 4:02 PM 02/02/2010 4:09 PM This order reflects the patients wishes and were consensually agreed upon. Question Answer Comments Discussion of Advance Directives occurred with: Not Discussed Does the patient have a Living Will? No Does the patient have Health Care Power of Hose Operator? No Healthcare Agents on File Name Relationship Healthcare Agent Relationshi p Communication Carolyn Ballard Adult Child Health Care Agent Care Teams Conductor Freight Relationship Specialty Start Date End Date Carmen Sifuentes MD [address] [place] [address] PCP - General Family Medicine 07/16/17 documented as of this encounter
--- OUTSIDE RECORDS SUMMARY | 2023-05-17 12:23 | External Medical Summary | Summary of Care ---
Author Name Unknown Organization [facility] Address [address] [place] [address] Phone [phone] Care Team Providers Care Journeyman Operator Assistant Name Role Phone Brian Domínguez MD Primary Care Provider [phone] Reason for Visit * Reason Onset Date Comments Follow Up 11/26/2022 Encounter Details Date Type Department Care Team Description 11/26/2022 Telephone [facility] [address] [place] [address] Brian Domínguez MD [address] [place] [address] Follow Up Allergies Active Allergy [...] Active venlafaxine XR (EFFEXOR XR) 150 MG [id number]:Dep ression Take 1 Cap by mouth daily. With food. 30 Cap 5 09/02/2016 Active Additional Information Patient taking differently: 225 mgOral Daily(AM), With food.,Indications: Takes 225 mg total every morning with food (150 mg tab + 75 mg tab), Reported on 06/24/2022 Blood Glucose Monitoring Suppl ([facility] GLUCOMETER) w/Device KITIndications:Unco ntrolled type 2 diabetes mellitus without complication, without long-term current use of insulin Use as directed. Use as directed once daily 1 Kit 0 11/18/2017 Active Blood Glucose Monitoring Suppl ([facility]) w/Device KIT Use as directed. Use as directed. 1 Kit 0 10/31/2018 Active Spacer/Aero-Holding Chambers WISAM Use with inhaler. Wheezing/bronchitis . 1 Device 0 04/08/2019 Active Aventeon DelTrending Taste Lancets 33G MISC USE UP TO FOUR TIMES A DAY Dx:E11.4 100 Each 5 09/30/2019 Active Lancet Devices (BionaturisUCH DELICA LANCING DEV) MISC Use four times [...] 238 g 0 03/19/2022 Active UltiCare Pen Labolt 31G X 5 MM (Insulin Pen Needle) USE ONE NEEDLE TWICE DAILY 200 Each 3 04/03/2022 Active Insulin Glargine Solostar 100 UNIT/ML Subcutaneous Solution Pen-injector (Basaglar KwikPen)Indications :Type 2 diabetes mellitus with diabetic neuropathy, with long-term current use of insulin ([facility]) Inject 30 units under the skin twice daily 45 mL 3 04/16/2022 Active Insulin Glargine Solostar 100 UNIT/ML Subcutaneous Solution Pen-injector (Basaglar KwikPen)Indications :Type 2 diabetes mellitus with diabetic neuropathy, with long-term current use of insulin ([facility]) Inject 30 units under the skin [...] Respimat 2.5 MCG/ACT Inhalation Aerosol Solution (Tiotropium [place] Monohydrate) Inhale by mouth 2 Puffs in [...] Oral Tablet (Demadex)Indication s:Atherosclerotic heart disease of [place] coronary artery with other forms of angina [...] 06/05/2022 Active Vitamin D (Ergocalciferol) 1.25 MG (15577 UT) Oral Capsule (Drisdol)Indication s:Vitamin D deficiency [...] DAILY 60 Capsule 5 08/22/2022 Active Nystatin 749626 UNIT/ML Mouth/Throat Suspension Swish and swallow 5 [...] mg daily Atherosclerotic heart diseas e of [place] coronary artery with other forms of angina pectoris 11/15/2021 Last Assessment & Plan: Stable. No angina -continue toprol, ASA and statin Seasonal allergies 11/15/2021 Recurrent UTI 10/07/2021 Last Assessment & Plan: Followed by urology Pt is supposed to be on methenamine--will need to clarify with dgt that she is giving this. 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 * Telephone Encounter - DENG Alvarado - 11/27/2022 7:54 AM EDT Faxed to [facility]. 11/27/2022 * Telephone Encounter - DENG Alvarado - 11/26/2022 3:04 PM EDT They will need a signed note. Once visit note from today is finished, the order can be sent to get her set up. * Telephone Encounter - Brian Domínguez MD - 11/26/2022 2:57 PM EDT Seen today - please see if we can set up home health nursing through [facility] to get home PT for patient. documented in this encounter Plan of Treatment Upcoming Encounters Date Type Specialty Care Team Description 11/27/2022 Telemedicine [facility] Lashay Blevins PA-C [address] BRINDA Campos [address] Beverly Lozoya, [employer] Back Counter Man [address] [place] [address] BRINDA Metz [address] 11/29/2022 Pharmacy Pharmacy [facility] [address] [place] [address] 12/27/2022 Cardiac Studies Cardiac Studies 01/13/2023 Office Visit Cardiology Sobia Brewster PA-C [address] [place] [address] 01/22/2023 Office Visit Infectious Disease Vidya Fabian MD [address], [place] [id number] 04/09/2023 Office Visit Urology Alfredo Panda MD [address] [place] [address] 04/28/2023 Office Visit Family Medicine Brian Domínguez MD [address] [place] [address] 05/09/2023 Office Visit Gastroenterology Wendy Frias DO [address] [place] [address] Scheduled Procedures Name Priority Associated Diagnoses Date/Ti [...] Additional history exists CKD PHOS USE SMARTSET 89470 10/24/202310/05, 02/18/2022, 02/17/2022, Additional history exists TSH 10/24/2023 10/23/2022, 02/05, 09/24/2021, Additional history exists CKD HGB USE SMARTSET 70346 11/22/202311/21, 11/21/2022, 04/25/2022, Additional history exists Colonoscopy [...] this encounter Medical Devices Implanted Type Area Distribution Center Supervisor Device Identifier Shelf Expiration Date Model / Serial / Lot Jenna Rojas 6 [id number] - [id number] Implanted:Qty: 1 on 02/15/2011 at OR [facility] N/A: Chest DO NOT USE 07/21/2015 [id number] / / [id number] documented as of this encounter Advance Directives Documents on File Type Date Recorded Patient Household Appliance Repairer Jose GARZON 05/06/2018 POL Latest Code Status on File Code Status Date Activated Date Inactivated Comments Full Code 06/25/2011 3:09 AM 06/26/2011 9:47 PM Thi s order reflects the patients wishes and were consensually agreed upon. Question Answer Comments Discussion of Advance Directives occurred with: Patient Does the patient have a Living Will? No Does the patient have Health Care Power of Roll Repairer? No Code Status History Code Status [...] the patient have Health Care Power of Roll Repairer? No Full Code 02/01/2010 4:02 PM 02/02/2010 4:09 PM This order reflects the patients wishes and were consensually agreed upon. Question Answer Comments Discussion of Advance Directives occurred with: Not Discussed Does the patient have a Living Will? No Does the patient have Health Care Power of Roll Repairer? No Healthcare Agents on File Name Relationship Healthcare Agent Relationshi p Communication Carolyn Ballard Adult Child Health Care Agent Care Teams Journeyman Operator Assistant Relationship Specialty Start Date End Date Brian Domínguez MD [address] [place] [address] PCP - General Family Medicine 07/16/17 documented as of this encounter
--- OUTSIDE RECORDS SUMMARY | 2023-05-17 12:23 | External Medical Summary ---
Author Name Unknown Address Unknown Organization K01:[facility] - [address] [place] [address] Laboratory Report Ordering Provider Test Date Status MARIA MORALES 11/27/2022 15:22:31 Final Observation Date Value Abnormality Reference (Units ) Status Osmolality, Urine 11/27/2022 15:22:31 221 50 -1200 (mOsm/kg) Final Performing Location [facility] - [address] [place] [address]
--- OUTSIDE RECORDS SUMMARY | 2023-05-17 12:23 | External Medical Summary ---
Author Name Unknown Address Unknown Organization K01:[facility] - [address] [place] [id number] Laboratory Report Ordering Provider Test Date Status LETTY UMANZOR 11/27/2022 15:22:31 Final Observation Date Value Abnormality Reference (Units) Status Bacteria identified in Unspecified specimen by Culture 11/27/2022 15:22:31 No significant growth Final Test: Culture, Urine, Quanti tative
Specimen Source: Urine, Clean Catch
Specimen Type: Urine
Specimen Date: 11/27/2022 3:22 PM
Result Date: 11/28/2022 3:23 PM
Result Status: Final result
Resulting Lab: [facility]
[address]
[place] [address]

CULTURE

No significant growth

null Performing Location [facility]AT[facility] - [address] [facility] [address]
--- OUTSIDE RECORDS SUMMARY | 2023-05-17 12:23 | External Medical Summary | Summary of Care ---
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 Yes All sections [...] on the next service day for the [facility] Home Phlebotomy does not service every geographical location on a daily basis. Contact [facility] Client Services at to find out service days for a specific location. Medical Laboratory [address] [place] [id number] Brady Ambrosio M.D. Director and Chiropractic Assistant Patient Name: Angelina Ballard : 1950 Sex: female Address [address] [place] [address] Provider: Self? Brian Domínguez MD? Diagnosis: I13.0,I50.32,N18.31 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) (primary encounter diagnosis) R05.3 Persistent cough N39.0 Recurrent UTI Tests Requested BMP, serum osmolality, urine osmolality--orders placed by PCP Patient may have sputum culture that will need to be completed Reason for Visit * Reason Comments [facility]: Telehealth Encounter Details Date Type Department Care Team Description 11/27/2022 Telemedicine [facility], [place] [address] [place] [address] Lashay Blevins PA-C [address] [place] [address] Beverly Lozoya, [facility] Stenographer [employer] [address] [place] [address] BRINDA Metz [address] 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)*; Persistent cough; Recurrent UTI Allergies Active Allergy Reactions Severity Noted Date Comments Propoxyphene Hcl Rash Low 10/29/2010 Fentanyl Diarrhea Low 04/26/2010 anxiety Methocarbamol Medium 10/05/2020 Other reaction(s): Delirium Methocarbamol Low 04/15/2007 Zolpidem Low 10/05/2020 Other reaction(s): Confusion documented as of this encounter (statuses as of 11/28/2022) Medications Medication Sig Dispensed Refills Start Date End Date Status ARIPiprazole (ABILIFY) 2 MG Tablet Take 1 Tablet by mouth in the morning. 0 2015 Active venlafaxine XR (EFFEXOR XR) 150 MG [id number]:Dep ression Take 1 Cap by mouth daily. [...] 0 11/18/2017 Active Blood Glucose Monitoring Suppl (utoopia VERIO) w/Device KIT Use as directed. Use [...] 238 g 0 03/19/2022 Active UltiCare Pen [place] 31G X 5 MM (Insulin Pen Needle) [...] Respimat 2.5 MCG/ACT Inhalation Aerosol Solution (Tiotropium Simon Monohydrate) Inhale by mouth 2 Puffs in [...] 06/05/2022 Active Vitamin D (Ergocalciferol) 1.25 MG (45032 UT) Oral Capsule (Drisdol)Indication s:Vitamin D deficiency [...] DAILY 60 Capsule 5 08/22/2022 Active Nystatin 229366 UNIT/ML Mouth/Throat Suspension Swish and swallow 5 [...] as of this encounter (statuses as of 11/28/2022) Active Problems Problem Noted Date Hypertensive heart [...] is giving this. 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 Last Assessment & Plan: Frequent [...] as of this encounter (statuses as of 11/28/2022) Resolved Problems Problem Noted Date Resolved Date [...] 10/31/201008/08 Acute coronary syndrome 10/30/2010 01/22/20 14 BUTTE Research Other*[id number] 02/02/2010 04/18/2014 Overview: [place] [facility], Dr Joel Kwon PI Obesity, morbid [...] as of this encounter (statuses as of 11/28/2022) Immunizations Name Administration Dates Next Due COVID-19 [...] Sign Reading Time Taken Comments Blood Pressure 118/74 11/27/2022 12:55 PM EDT Pulse 70 11/27/2022 12:55 PM EDT Temperature 36.4 C (97.5 F) 11/27/2022 12:55 PM E DT Respiratory Rate 18 11/27/2022 12:55 PM EDT Oxygen Saturation 98% 11/27/2022 12:55 PM EDT Inhaled Oxygen Concentration - - Weight - - Height - - Body Mass Index - - documented in this encounter Progress Notes * Lashay Johnston PA-C - 11/27/2022 1:09 PM EDT [facility] Provider Telemedicine Visit Date: 11/27/2022 Time: 1:09 PM Assessment/Plan: 1. 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) Advised to monitor fluid intake PCP placed repeat lab orders and sodium osmolality and urine osmolality - HOME PHLEBOTOMY REFERRAL OP 2. Persistent cough Recently completed Cefdinir Negative CXR 2 weeks ago - CULTURE, RESPIRATORY, LOWER, AEROBIC; Future 3. Recurrent UTI - CULTURE, URINE, QUANTITATIVE Follow up plan: Will follow up in 2 weeks. Patient had fever last night and foul smelling urine today. Will order a urine culture. She recently completed Cefdinir. She has had complaints of persistent cough with green sputum. Symptoms improve while on antibiotics but shortly return after completion. Sputum culture ordered. PCP ordered repeat labs to monitor for hyponatremia. Mobile order added. A total of 35 minutes was spent face to face via video-based telemedicine. Subjective Patient location: HOME. I was not in a hospital or clinic location. After connecting through [employer], patient was verified with two unique identifiers. Patient (or authorized legal disability representative) was then informed that this was a Telemedicine visit and being conducted confidentially over secure lines. Methods to assure confidentiality were taken. Patient acknowledged consent and understanding of privacy and security of the Telemedicine visit. The patient agreed to participate. Reason for Visit: Follow-Up Current Concerns: Angelina Ballard is a 72 year old female seen today for a [facility] Telemedicine Provider Visit. Date of last known acute care visit: 11/26/22 with PCP Reason for last known acute care visit: Angelina has a history of recurrent UTI's and history of ESBL UTI. She has been treated with IV Meropenum in the past at home. She recently grew Proteus and was treated with Cefidnir. She was scheduled to see Urogynecology multiple times but has no showed the appointments. She is using estrogen vaginal cream a couple times a week. She has had recurrent symptoms of chest congestion, and cough with green sputum. She has been treated with steroids and antibiotics multiple times. Multiple negative CXR's. She recently saw Pulmonology. PFT's and walking test was not suggestive of chronic lung disease.I sent a Rx for Cefdinir on 11/12/22 Today's concerns are: Patient states she feels a little better since our last visit. She states cough is improved while taking the antibiotics but shortly returns after completing them. She continues to expectorate yellowand green colored sputum. She is not having MONROE outside of her baseline. Family reports she is verytired and wants to sleep most days. BG has been running mostly in the 200's. Appetite is variable depending on the day. She had a fever of 101.0 last night. Her daughter states she had foul smelling cloudy urine this morning. She has not had increased urgency/frequency yet. No changes in bowel or urinary habits. She is consuming 3-4 ex large cups of ice throughout the day. Her daughter feels she her LE edema is same as last time. She has pitting edema around the ankle region on the left. She does not feel she is fluid overloaded. She is taking the Torsemide twice daily recently with minimal change. ROS: See HPI Objective Physical Exam: BP 118/74 (BP Site: Left Arm, BP Position: Sitting, BP Cuff Size: Regular) | Pulse 70 | Temp 36.4 C (97.5 F) | Resp 18 | SpO2 98% Previous Wts: Wt Readings from Last 5 Encounters: 11/26/22 112 kg (247 lb) 10/29/22 115.7 kg (255 lb) 10/23/22 114.3 kg (252 lb) 10/23/22 115.7 kg (255 lb) 09/19/22 115.7 kg (255 lb) Previous BPs: BP Readings from Last 5 Encounters: 11/27/22 118/74 11/26/22 118/64 11/13/22 110/50 10/29/22 126/62 10/25/22 125/57 Physical Exam Constitutional: General: She is not in acute distress. HENT: Head: Normocephalic and atraumatic. Mouth/Throat: Pharynx: Oropharynx is clear. Eyes: Extraocular Movements: Extraocular movements intact. Conjunctiva/sclera: Conjunctivae normal. Cardiovascular: Rate and Rhythm: Normal rate and regular rhythm. Heart sounds: Murmur heard. Pulmonary: Effort: Pulmonary effort is normal. No respiratory distress. Breath sounds: Normal breath sounds. Musculoskeletal: Comments: Mild LE edema noted; mostly around ankle region Neurological: General: No focal deficit [...] Results Component Value Date/Time SODIUM - [facility] 127 (L) 11/18/2022 12:32 PM SODIUM - [facility] 131 (L) 10/23/2022 10:46 AM SODIUM - [facility] 133 (L) 07/18/2020 12:20 PM SODIUM - [facility] 129 (L) 05/22/2020 01:24 PM Lab Results Component Value Date/Time POTASSIUM - [facility] 4.2 11/18/2022 12:32 PM POTASSIUM - [facility] 4.4 10/23/2022 10:46 AM POTASSIUM - [facility] 4.6 07/18/2020 12:20 [...] Results Component Value Date/Time BUN - [facility] 10 11/18/2022 12:32 PM BUN - [facility] 9 10/23/2022 10:46 AM BUN - [facility] 11 04/25/2022 04:45 PM BUN - [facility] 8 07/18/2020 12:20 PM BUN - [facility] 8 05/22/2020 01:24 PM BUN - [facility] 9 12/14/2019 01:10 PM Lab Results Component Value Date/Time CREATININE - [facility] 1.0 11/18/2022 12:32 PM CREATININE - [facility] 1.1 (H) 10/23/2022 10:46 AM CREATININE - [facility] 0.9 04/25/2022 04:45 PM CREATININE - [facility] 1.0 07/18/2020 12:20 PM CREATININE - [facility] 0.9 05/22/2020 01:24 PM CREATININE - [facility] 0.8 12/14/2019 01:10 PM Lab Results Component Value Date/Time ESTIMATED GLOMERULAR FILTRATION RATE - [facility] 63 11/18/2022 12:32 PM ESTIMATED GLOMERULAR FILTRATION RATE - [facility] 55 (L) 10/23/2022 10:46 AM ESTIMATED GLOMERULAR FILTRATION RATE - [facility] 68 04/25/2022 04:45 PM ESTIMATED GLOMERULAR FILTRATION RATE - [facility] [...] Date/Time BILIRUBIN URINE, POCT - [facility] Negative 02/22/2021 12:00 AM BILIRUBIN, DIRECT - [facility] 0.7 (H) 02/16/2022 05:50 AM BILIRUBIN, DIRECT - [facility] <0.2 11/16/2019 01:45 PM BILIRUBIN, TOTAL - [facility] 0.6 10/23/2022 10:46 AM BILIRUBIN, TOTAL - [facility] 0.3 05/22/2020 01:24 PM BILIRUBIN, URINE - [facility] Negative 11/12/2022 08:39 AM BILIRUBIN, URINE - [facility] NEGATIVE 08/02/2020 [...] 1 Kit 0 Blood Glucose Monitoring Suppl (utoopia VERIO) w/Device KIT Use as directed. Use as directed. 1 Kit 0 Spacer/Aero-Holding Chambers WISAM Use with inhaler. Wheezing/bronchitis. 1 Device 0 Sighter Lancets 33G MISC USE UP TO FOUR TIMES A DAY Dx:E11.4 100 Each 5 Lancet Devices (Innovaspire LANCING DEV) MISC Use four times a [...] PROCEDURE DIRECTED 238 g 0 UltiCare Pen [place] 31G X 5 MM (Insulin Pen Needle) [...] Respimat 2.5 MCG/ACT Inhalation Aerosol Solution (Tiotropium Simon Monohydrate) Inhale by mouth 2 Puffs in [...] g 3 Vitamin D (Ergocalciferol) 1.25 MG (08266 UT) Oral Capsule (Drisdol) TAKE ONE CAPSULE [...] MOUTH TWICE DAILY 60 Capsule 5 Nystatin 702437 UNIT/ML Mouth/Throat Suspension Swish and swallow 5 [...] No [facility]: DME (Durable Medical Equipment) needs Cot Assembler Services / Assistance with ADLs and Self-Care Routine Transportation Urgent Transportation Social Isolation Behavioral Health needs Lashay Johnston PA-C 1:09 PM *Communication sent to PCP (via [facility] if non[facility]), Population Health Care Team members, relevant Specialty Care Physicians* * Beverly Lozoya [facility] Health Stenographer [employer] - 11/27/2022 12:41 PM EDT [facility] Stenographer [employer] Visit Date: 11/27/2022 Time: 12:41 PM Name: Angelina Ballard : 1950 Referral Source: Provider Source of Information: Patient and daughter, Carolyn Spoken language: [place] Patient can read in [place]: Yes. Home Performance Laborer needed: No. COVID-19 screening completed: Yes Vitals: Vital signs completed: Yes, vital signs within normal range. BP 118/74 (BP Site: Left Arm, BP Position: Sitting, BP Cuff Size: Regular) | Pulse 70 | Temp 36.4 C (97.5 F) | Resp 18 | SpO2 98% Condition Changes: Changes in health or social status since last visit: RANDY for return visit with [facility] provider. The patient has new concerns since last visit: Yes, reports ongoing cough Progress towards goals since last visit: maintained [...] Score is 4 or more? Yes, notified Provider/Fire And Safety Helper Last flowsheet values for MAHC10: Age 65+: [...] help getting on and off the toilet? No Does the patient report needing help bathing? No Are there any other identified issues/needs? No. If yes specify: Plan: [facility] provided specimen cups and biohazard bag x2 for sputum and urine culture. Garcia top tube and vacutaner for urine culture Reinforced patient's three red flags by the care team 1. Fever 2. Increased sob 3. Increased edema or abd distention Follow Up: Patient encouraged to call the intake phone number for all urgent but not emergent issues. Scheduled to follow up with patient in PRN. Emely Yan 11/27/2022 12:41 PM documented in this encounter Plan of Treatment Upcoming Encounters Date Type Specialty Care Team Description 11/29/2022 Pharmacy [facility] [address] [address] 12/05/2022 Laboratory Laboratory Processing [facility] [place] Mobile Home Draw [address] [place] [address] 12/17/2022 Telemedicine [facility] Lashay Blevins PA-C [address] [place] [address] Beverly Lozoya [facility] [address] [place] [address] BR[place]DA Metz [address] 12/27/2022 Cardiac Studies Cardiac Studies 01/13/2023 Office Visit Cardiology Sobia Brewster PA-C [address] [place] [address] 01/22/2023 Office Visit Infectious Disease Vidya Fabian MD [address] [place] [address] 04/09/2023 Office Visit Urology Alfredo Panda MD [address] [place] [address] 04/28/2023 Office Visit Family Medicine Brian Domínguez MD [address] [place] [address] 05/09/2023 Office Visit Gastroenterology Wendy Frias DO [address] [place] [address] Pending Results Name Type Priority Associated Diagnoses Date /Time CULTURE, URINE, QUANTITATIVE Lab STAT Recurrent UTI 11/27/2022 3:22 PM EDT Scheduled Orders Name Type Priority Associated Diagnoses Orde r Schedule CULTURE, RESPIRATORY, LOWER, AEROBIC Lab Routine Persistent cough Expected: 12/04/2022, Expires: 11/28/2023 Scheduled Procedures Name Priority Associated Diagnoses Date/Ti me COLONOSCOPY FLEXIBLE PROXIMA L DIAGNOSTIC Recall Special screening for malignant neoplasms, colon Scheduled Referrals Name Type Priority Associated Diagnoses Orde r Schedule HOME PHLEBOTOMY REFERRAL OP Referral Within 10 days (routine) 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) Ordered: 11/27/2022 Health Maintenance Due Date Last Done Comments [...] Additional history exists CKD PHOS USE SMARTSET 82813 10/24/202310/05, 02/18/2022, 02/17/2022, Additional history exists TSH 10/24/2023 10/23/2022, 02/05, 09/24/2021, Additional history exists CKD HGB USE SMARTSET 12526 11/22/202311/21, 11/21/2022, 04/25/2022, Additional history exists Colonoscopy [...] this encounter Medical Devices Implanted Type Area Fire Sprinkler Inspector Device Identifier Shelf Expiration Date Model / Serial / Lot Sut Steel 6 [id number] - [id number] [place]ed:Q[place]: 1 [place] [facility] [place] Chest DO NOT USE 07/21/2015 [id number] / / [id number] documented as of this encounter Visit Diagnoses Diagnosis 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)- Primary Persistent cough Cough Recurrent UTI Urinary tract infection, site not specified documented in this encounter Advance Directives Documents on File Type Date Recorded Patient Implementation Engineer 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 Question Answer Comments Discussion of Advance Directives occurred with: Patient Does the patient have a Living Will? No Does the patient have Health Care Power of Call Center Professional? No Code Status History Code Status Date [...] the patient have Health Care Power of Call Center Professional? No Full Code 02/01/2010 4:02 PM 02/02/2010 4:09 PM This order reflects the patients wishes and were consensually agreed upon. Question Answer Comments Discussion of Advance Directives occurred with: Not Discussed Does the patient have a Living Will? No Does the patient have Health Care Power of Call Center Professional? No Healthcare Agents on File Name Relationship Healthcare Agent [facility] Communication Carolyn Ballard Adult Child Health Care Agent Care Teams Machinist Linotype Relationship Specialty Start Date End Date Brian Domínguez MD [address] [place] [address] PCP - General Family Medicine 07/16/17 documented as of this encounter"
--- OUTSIDE RECORDS SUMMARY | 2023-05-17 12:23 | External Medical Summary ---
Author Name Unknown Address Unknown Organization K01:[place] [place] [address] [place] [address] [place] [address] Laboratory Report Ordering Provider Test Date Status MARIA MORALES 11/27/2022 15:22:31 Final Observation Date Value Abnormality Reference (Units ) Status Sodium, Urine 11/27/2022 15:22:31 51 (mmol/ L) Final Performing Location LAB[facility]ATORY [facility] - [address] [place] [address]
--- OUTSIDE RECORDS SUMMARY | 2023-05-17 12:24 | External Medical Summary | Summary of Care ---
Author Name Unknown Organization [facility] Address [address] [place] [address] Phone [phone] Care Team Providers Care Machine Biller Name Role Phone Brian Domínguez MD Primary Care Provider [phone]- [phone] Reason for Visit * Reason Onset Date Comments Med Request 11/25/2022 Encounter Details Date Type Department Care Team Description 11/25/2022 Telephone [facility] [address] [place] [address] Brian Domínguez MD [address] [place] [address] Med Request Allergies Active Allergy Reactions Severity Noted Date Comments Propoxyphene Hcl Rash Low 10/29/2010 Fentanyl Diarrhea Low 04/26/2010 anxiety Methocarbamol Medium 10/05/2020 Other reaction(s): Delirium Methocarbamol Low 04/15/2007 Zolpidem Low 10/05/2020 Other reaction(s): Confusion documented as of this encounter (statuses as of 11/25/2022) Medications Medication Sig Dispensed Refills Start Date End Date Status ARIPiprazole (ABILIFY) 2 MG Tablet Take 1 Tablet by mouth in the morning. 0 2015 Active venlafaxine XR (EFFEXOR XR) 150 MG AN41Qxpasmalled:Dep ression Take 1 Cap by mouth daily. With food. 30 Cap 5 09/02/2016 Active Additional Information Patient taking differently: 225 mgOral Daily(AM), With food.,Indications: Takes 225 mg total every morning with food (150 mg tab + 75 mg tab), Reported on 06/24/2022 Blood Glucose Monitoring Suppl ([employer] GLUCOMETER) w/Device KITIndications:Unco ntrolled type 2 diabetes mellitus without complication, without long-term current use of insulin Use as directed. Use as directed once daily 1 Kit 0 11/18/2017 Active Blood Glucose Monitoring Suppl (Revolt TechnologyIO) w/Device KIT Use as directed. Use as directed. 1 Kit 0 10/31/2018 Active Spacer/Aero-Holding Chambers WISAM Use with inhaler. Wheezing/bronchitis . 1 Device 0 04/08/2019 Active AdverCar DelComprehensive Care Lancets 33G MISC USE UP TO FOUR TIMES A DAY Dx:E11.4 100 Each 5 09/30/2019 Active Lancet Devices (UnowhyUCH DELICA LANCING DEV) MISC Use four times [...] 238 g 0 03/19/2022 Active UltiCare Pen [place] 31G X 5 MM (Insulin Pen Needle) USE ONE NEEDLE TWICE DAILY 200 Each 3 04/03/2022 Active Insulin Glargine Solostar 100 UNIT/ML Subcutaneous Solution Pen-injector (Basaglar KwikPen)Indications :Type 2 diabetes mellitus with diabetic neuropathy, with long-term current use of insulin ([facility]) Inject 30 units under the skin twice daily 45 mL 3 04/16/2022 Active Insulin Glargine Solostar 100 UNIT/ML Subcutaneous Solution Pen-injector (Basaglar KwikPen)Indications :Type 2 diabetes mellitus with diabetic neuropathy, with long-term current use of insulin ([facility]) Inject 30 units under the skin [...] Respimat 2.5 MCG/ACT Inhalation Aerosol Solution (Tiotropium [place] Monohydrate) Inhale by mouth 2 Puffs in [...] Oral Tablet (Demadex)Indication s: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 60 Tablet 3 09/18/2022 Active Fosfomycin Tromethamine 3 GM Oral Packet (Monurol) Take 3 g by mouth every 3 days. 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 No angina -continue toprol, ASA and statin Seasonal allergies 11/15/2021 Recurrent UTI 10/07/2021 Last Assessment & Plan: Followed by urology Pt is supposed to be on methenamine--will need to clarify with dgt that she is giving this. 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 Informed pt is is too soon torequest morphine and clonazepam. Pt states she will call back to request all 3 medications. Thank you, Arlene Stacy, Tech [address] [employer] [facility] 11/25/2022, 9:08 AM documented in this encounter Plan of Treatment Upcoming Encounters Date Type Specialty Care Team Description 11/25/2022 Imaging Radiology 11/26/2022 Office Visit Family Medicine Brian Domínguez MD [address], [place] [id number] 11/27/2022 [facility]medicine [facility]ins [facility]-C [address] [facility] [place] [address] Beverly Lozoya [facility] [employer] [facility] Draftsperson [address] [place] [address] [place] [address] 12/27/2022 Cardiac Studies Cardiac Studies 01/13/2023 Office Visit Cardiology Sobia Brewster PA-C [address] [place] [address] 01/22/2023 Office Visit Infectious Disease Vidya Fabian MD [address] [facility] [place] [address] 04/09/2023 Office Visit Urology Alfredo Panda MD [address] [place] [address] 05/09/2023 Office Visit Gastroenterology Wendy Frias, DO [address] [place] [address] Scheduled Procedures Name Priority Associated Diagnoses Date/Ti [...] for Moderna series) 08/05/2021 06/10/2021, 08/29/2020, 08/01/2020 HgA1C 04/24/2023 10/23/2022, 04/07, 11/01/2021, Additional history exists GFR - Renal Function 05/21/2023 11/18/2022, 10/23/2022, 04/25/2022, Additional history exists Albumin/Creatinine Ratio 10/24/2023 023, 07/17/2022, 10/05/2020, Additional history exists CKD PHOS USE SMARTSET 40888 10/24/202310/05, 02/18/2022, 02/17/2022, Additional history exists TSH FOR THYROID MEDICATION MONITORING YEARLY 10/24/2023 10/23/2022, 02/28/2022, 09/24/2021, Additional history exists CKD HGB USE SMARTSET 96149 11/22/202311/21, 11/21/2022, 04/25/2022, Additional history exists Colonoscopy [...] this encounter Medical Devices Implanted Type Area Wildlife Conservation Professor Device Identifier Shelf Expiration Date Model / Serial / Lot Jenna Rojas 6 [id number] - [id number] Implanted:Qty: 1 on 02/15/[address] [facility] [place] N/A: Chest DO NOT USE 07/21/2015 [id number] / / [id number] documented as of this encounter Advance Directives Documents on File Type Date Recorded Patient Digital Computer Systems Analyst Expl 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 Question Answer Comments Discussion of Advance Directives occurred with: Patient Does the patient have a Living Will? No Does the patient have Health Care Power of Retail Planner? No Code Status History Code Status Date [...] the patient have Health Care Power of Retail Planner? No Full Code 02/01/2010 4:02 PM 02/02/2010 4:09 PM This order reflects the patients wishes and were consensually agreed upon. Question Answer Comments Discussion of Advance Directives occurred with: Not Discussed Does the patient have a Living Will? No Does the patient have Health Care Power of Retail Planner? No Healthcare Agents on File Name Relationship Healthcare Agent [facility] Communication Carolyn Goldmandrewnabila Adult Child Health Care Agent Care Teams Machine Biller Relationship Specialty Start Date End Date Brian Domínguez MD [address] [place] [address] PCP - General Family Medicine 07/16/17 documented as of this encounter
--- OUTSIDE RECORDS SUMMARY | 2023-05-17 12:24 | External Medical Summary | Summary of Care ---
Author Name Unknown Organization [facility] Address [address] [place] [address] Phone [phone] Care Team Providers Care Professor Of Oceanography Name Role Phone Brian Domínguez MD Primary Care Provider [phone]- [phone] Reason for Visit * Reason Onset Date Comments Information 11/19/2022 Encounter Details Date Type Department Care Team Description 11/19/2022 Telephone [facility] [place] [address] [place] [address] Services, Scheduling [address] [place] [address] Information (/) Allergies Active Allergy Reactions Severity Noted Date Comments Propoxyphene Hcl Rash Low 10/29/2010 Fentanyl Diarrhea Low 04/26/2010 anxiety Methocarbamol Medium 10/05/2020 Other reaction(s): Delirium Methocarbamol Low 04/15/2007 Zolpidem Low 10/05/2020 Other reaction(s): Confusion documented as of this encounter (statuses as of 11/19/2022) Medications Medication Sig Dispensed Refills Start Date End Date Status ARIPiprazole (ABILIFY) 2 MG Tablet Take 1 Tablet by mouth in the morning. 0 2015 Active venlafaxine XR (EFFEXOR XR) 150 MG [id number]:Dep ression Take 1 Cap by mouth daily. [...] 0 11/18/2017 Active Blood Glucose Monitoring Suppl (Onformon[employer] VERIO) w/Device KIT Use as directed. Use [...] 238 g 0 03/19/2022 Active UltiCare Pen [place] 31G X 5 MM (Insulin Pen Needle) [...] Respimat 2.5 MCG/ACT Inhalation Aerosol Solution (Tiotropium [place] Monohydrate) Inhale by mouth 2 Puffs in [...] Oral Tablet (Demadex)Indication s:Atherosclerotic heart disease of [place] coronary artery with other forms of angina [...] 06/05/2022 Active Vitamin D (Ergocalciferol) 1.25 MG (03791 UT) Oral Capsule (Drisdol)Indication s:Vitamin D deficiency [...] DAILY 60 Capsule 5 08/22/2022 Active Nystatin 515765 UNIT/ML Mouth/Throat Suspension Swish and swallow 5 [...] as directed 18 g 3 11/07/2022 Active Cefdinir 300 MG Oral Capsule (Omnicef) Take 1 Capsule by mouth in the morning and 1 Capsule before bedtime. Do all this for 10 days. For 10 days.. 20 Capsule 0 11/12/2022 11/23/19 23 Active Oxybutynin Chloride ER 10 MG [...] as of this encounter (statuses as of 11/19/2022) Active Problems Problem Noted Date Hypertensive heart and kidne y disease with chronic diastolic congestive heart failure and stage 3a chronic kidney disease 12/28/2021 Last Assessment & Plan: Euvolemic, BP stable EF 55% 09/25 GFR 69 02/25 -Continue Torsemide 20 mg BID, Spironolactone 25 mg BID, Tropol XL 50 mg daily Atherosclerotic heart diseas e of [place] coronary artery with other forms of angina pectoris 11/15/2021 Last Assessment & Plan: Stable. No angina -continue toprol, ASA and statin Seasonal allergies 11/15/2021 Recurrent UTI 10/07/2021 Last Assessment & Plan: Followed by urology Pt is supposed to be on methenamine--will need to clarify with dgt that she is giving this. 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 Anxiety 08/05/2017 Ojpvmjs-Xqyvu-Ndmpv disease 06/27/2015 Last Assessment & Plan: Frequent [...] as of this encounter (statuses as of 11/19/2022) Resolved Problems Problem Noted Date Resolved Date [...] 05/06/2018 019 Atherosclerotic heart diseas e of [place] coronary artery with other forms of angina [...] 10/31/201008/08 Acute coronary syndrome 10/30/2010 01/22/20 14 DODGE Research Other*[id number] 02/02/2010 04/18/2014 Overview: [place] [facility], Dr Joel Kwon PI Obesity, morbid [...] thrombosis 06/17/2006 01/21/2014 snf current use of anticoagulant therapy 1 08/18/2005 [...] as of this encounter (statuses as of 11/19/2022) Immunizations Name Administration Dates Next Due COVID-19 [...] * Telephone Encounter - DENG Cruz - 11/19/2022 1:17 PM EDT Call to daughter eliot and made her aware mobile phleb will be back out this thurs (they will callahead with an exact time) to redraw labs documented in this encounter Plan of Treatment Upcoming Encounters Date Type Specialty Care Team Description 11/21/2022 Laboratory Laboratory Processing [facility] Draw [address], [place] [phone] 11/22/2022 Telemedicine Pharmacy [facility] [address] [place] [address] 11/25/2022 Imaging Radiology 11/27/2022 Telemedicine [facility] Lashay Blevins PA-C [address] [place], [place] [phone] Beverly Lozoya, [facility] Disability Hearing Officer [address] [place] [address] [place] [phone] 12/27/2022 Cardiac Studies Cardiac Studies 01/13/2023 Office Visit Cardiology Sobia Brewster PA-C [address] [place] [address] 01/22/2023 Office Visit [facility] Disease [facility] [address] [facility] [address] 04/09/2023 Office Visit Urology Alfredo Panda MD [address] [place] [address] 04/28/2023 Office Visit Family Medicine Brian Domínguez MD [address] [place], [place] [phone] 05/09/2023 Office Visit Gastroenterology Wendy Frias, DO [address] [place] [address] Scheduled Procedures Name Priority Associated Diagnoses Date/Ti [...] 04/24/2023 10/23/2022, 04/07, 11/01/2021, Additional history exists CKD HGB USE SMARTSET 86023 04/25/202304/25, 04/25/2022, 03/01/2022, Additional history exists GFR - Renal Function 05/21/2023 11/18/2022, 10/23/2022, 04/25/2022, Additional history exists Albumin/Creatinine Ratio 10/24/2023 023, 07/17/2022, 10/05/2020, Additional history exists CKD PHOS USE SMARTSET 80598 10/24/202310/05, 02/18/2022, 02/17/2022, Additional history exists TSH FOR THYROID MEDICATION MONITORING YEARLY 10/24/2023 10/23/2022, 02/28/2022, 09/24/2021, Additional history exists Colonoscopy 05/20/2024 05/20/2014 Colorectal [...] this encounter Medical Devices Implanted Type Area Single Resource Boss Device Identifier Shelf Expiration Date Model / Serial / Lot Sut Steel 6 [id number] - [id number] Implanted:Qty: 1 on 02/15/2011 at [place] [facility] [place] N/A: Chest DO NOT USE 07/21/2015 [id number] / / [id number] documented as of this encounter Advance Directives Documents on File Type Date Recorded Patient Butt Maker Expl anation POL 05/06/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 Question Answer Comments Discussion of Advance Directives occurred with: Patient Does the patient have a Living Will? No Does the patient have Health Care Power of Section Cutter? No Code Status History Code Status Date [...] the patient have Health Care Power of Section Cutter? No Full Code 02/01/2010 4:02 PM 02/02/2010 4:09 PM This order reflects the patients wishes and were consensually agreed upon. Question Answer Comments Discussion of Advance Directives occurred with: Not Discussed Does the patient have a Living Will? No Does the patient have Health Care Power of Section Cutter? No Healthcare Agents on File Name Relationship Healthcare Agent [facility] p Communication Eliot Goldmandrewnabila Adult Child Health Care Agent Care Teams Professor Of Oceanography Relationship Specialty Start Date End Date Brian Domínguez MD [address] [place] [address] PCP - General Family Medicine 07/16/17 documented as of this encounter
--- OUTSIDE RECORDS SUMMARY | 2023-05-17 12:24 | External Medical Summary | Summary of Care ---
Author Name Unknown Organization [facility] Address [address] [place] [address] Phone [phone] Care Team Providers Care Electrical Logger Name Role Phone Carmen Sifuentes MD Primary Care Provider [phone] Reason for Visit * Reason Comments eRx-Medication Refill Encounter Details Date Type Department Care Team Description 11/18/2022 Refill [facility] [address] [place] [address] Carmen Sifuentes MD [address] [place] [address] Allergies Active Allergy Reactions Severity [...] Active venlafaxine XR (EFFEXOR XR) 150 MG [id number]:De pression Take 1 Cap by mouth daily. With food. 30 Cap 5 09/02/19 17 Active Additional Information Patient taking differently: 225 mgOral Daily(AM), With food.,Indications: Takes 225 mg total every morning with food (150 mg tab + 75 mg tab), Reported on 06/24/2022 Blood Glucose Monitoring Suppl ([employer]-mySugr GLUCOMETER) w/Device KITIndications:Unc ontrolled type 2 diabetes mellitus without complication, without long-term current use of insulin Use as directed. Use as directed once daily 1 Kit 0 11/19/19 18 Active Blood Glucose Monitoring Suppl (smsPREP) w/Device KIT Use as directed. Use as [...] g 0 03/19/20 22 Active UltiCare Pen [place] 31G X 5 MM (Insulin Pen Needle) USE ONE NEEDLE TWICE DAILY 200 Each 3 04/03/20 22 Active Insulin Glargine Solostar 100 UNIT/ML Subcutaneous Solution Pen-injector (Basaglar KwikPen)Indication s:Type 2 diabetes mellitus with diabetic neuropathy, with long-term current use of insulin ([facility]) Inject 30 units under the skin twice daily 45 mL 3 04/16/20 22 Active Insulin Glargine Solostar 100 UNIT/ML Subcutaneous Solution Pen-injector (Basaglar KwikPen)Indication s:Type 2 diabetes mellitus with diabetic neuropathy, with long-term current use of insulin ([facility]) Inject 30 units under the skin twice [...] Respimat 2.5 MCG/ACT Inhalation Aerosol Solution (Tiotropium [place]on Monohydrate) Inhale by mouth 2 Puffs in [...] Oral Tablet (Demadex)Indicatio ns:Atherosclerotic heart disease of [place] coronary artery with other forms of angina [...] 22 Active Vitamin D (Ergocalciferol) 1.25 MG (93247 UT) Oral Capsule (Drisdol)Indicatio ns:Vitamin D deficiency [...] Tablet before bedtime. 60 Tablet 5 07/25/19 Active Phenazopyridine HCl 200 MG Oral Tablet (Pyridium) Take 1 Tablet by mouth 3 times a day as needed for Pain, Moderate. After meals for pain with urination 6 Tablet 2 08/01/19 Active Ipratropium-Albute rol 0.5-2.5 (3) MG/3ML Inhalation Solution (Duoneb) Inhale 3 mL via nebulizer in the morning and 3 mL at noon and 3 mL in the evening and 3 mL before bedtime. 360 mL 3 08/05/19 Active Trulicity 4.5 MG/0.5ML Subcutaneous Solution Pen-injector (Dulaglutide) INJECT 4.5 mg subcutaneously once per week 6 mL 08/20/19 23 Active Gabapentin 300 MG Oral Capsule (Neurontin)Indicat ions:Lumbar spondylosis TAKE 1 CAPSULE BY MOUTH TWICE DAILY 60 Capsule 5 08/22/19 Active Nystatin 388461 UNIT/ML Mouth/Throat Suspension Swish and swallow 5 mL in the morning and 5 mL at noon and 5 mL in the evening and 5 mL before bedtime. For thrush.. 240 mL 1 09/06/19 Active Tamsulosin HCl 0.4 MG Oral Capsule (Flomax) Take 1 Capsule by mouth in the morning. Every morning.. 90 Capsule 09/19/19 Active Methenamine Hippurate 1 GM Oral Tablet (Hiprex)Indication s:Recurrent UTI Take 1 Tablet by mouth in the morning and 1 Tablet before bedtime. 60 Tablet 3 09/19/19 Active Fosfomycin Tromethamine 3 GM Oral Packet (Monurol) Take 3 g by mouth every 3 days. 1 Packet 0 09/19/19 Active lamoTRIgine 25 MG Oral Tablet (LaMICtal) Take 1 tablet by mouth in the morning for a total of 125mg, then 2 tablets by mouth in the evening every day 0 09/09/19 23 Active Pantoprazole Sodium 40 MG Oral Tablet Delayed Release (Protonix)Indicati ons:Gastroesophage al reflux disease without esophagitis TAKE ONE TABLET BY MOUTH IN THE MORNING AND ONE TABLET IN THE EVENING 60 Tablet 0 09/26/19 23 Active metFORMIN HCl ER 500 MG [...] morning. 90 Tablet 0 10/24/19 23 Active clonazePAM 0.5 MG Oral Tablet (KlonoPIN)Indicati ons:Bipolar I disorder, most recent episode depressed, moderate (HCC) TAKE ONE TABLET BY MOUTH THREE TIMES DAILY 90 Tablet 0 11/01/19 23 Active Morphine Sulfate ER 15 MG Oral Tablet Extended Release (Ms Contin)Indications :Lumbar spondylosis Take 1 Tablet by mouth at bedtime as needed for Pain, Severe. 30 Tablet 0 11/01/19 23 Active oxyCODONE HCl 5 MG Oral Tablet (Oxy IR)Indications:Lum bar spondylosis Take 1 Tablet by mouth every 8 hours as needed (pain). 60 Tablet 0 11/01/19 23 Active Potassium Chloride Mag ER 20 MEQ Oral Tablet Extended Release TAKE ONE TABLET BY MOUTH IN THE MORNING. to use when taking additional torsemide 30 Tablet 0 11/02/19 23 Active Albuterol Sulfate HFA 108 (90 Base) MCG/ACT Inhalation Aerosol SolutionIndication s:Cough Use two puffs four times a day, as directed 18 g 3 11/08/19 23 Active Cefdinir 300 MG Oral Capsule (Omnicef) Take 1 Capsule by mouth in the morning and 1 Capsule before bedtime. Do all this for 10 days. For 10 days.. 20 Capsule 0 11/13/19 23 023 Active Oxybutynin Chloride ER 10 MG Oral Tablet Extended Release 24 Hour (Ditropan XL) TAKE ONE TABLET BY MOUTH IN THE MORNING 90 Tablet 0 11/20/19 23 Active Oxybutynin Chloride ER 10 MG Oral Tablet Extended Release 24 Hour (Ditropan XL) Take by mouth 1 Tablet in the morning. 90 Tablet 3 02/12/20 22 023 Discontinued Hospital, Clinic, or Other [...] mg daily Atherosclerotic heart diseas e of [place] coronary artery with other forms of angina pectoris 11/15/2021 Last Assessment & Plan: Stable. No angina -continue toprol, ASA and statin Seasonal allergies 11/15/2021 Recurrent UTI 10/07/2021 Last Assessment & Plan: Followed by urology Pt is supposed to be on methenamine--will need to clarify with dgt that she is giving this. 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 Last Assessment & Plan: Frequent [...] 05/06/2018 019 Atherosclerotic heart diseas e of [place] coronary artery with other forms of angina [...] 10/31/201008/08 Acute coronary syndrome 10/30/2010 01/22/20 14 NASHUA Research Other*[id number] 02/02/2010 04/18/2014 Overview: [facility], Dr Joel Kwon PI Obesity, morbid [...] Telephone Encounter - Carmen Sifuentes MD - 11/19/2022 12:53 PM EDTSigned Prescriptions: Disp Refills Oxybutynin Chloride ER 10 MG Oral Tablet E*90 Tab*0 Sig: TAKE ONE TABLET BY MOUTH IN THE MORNINGAuthorizing Provider: CARMEN SIFUENTES * Telephone Encounter - Ramon Bragg [facility] - 11/19/2022 8:19 AM EDT Pending Prescriptions: Disp Refills Oxybutynin Chloride ER 10 MG Oral Tablet E*90 Tab*0 Sig: TAKE ONE TABLET BY MOUTH IN THE MORNING * Telephone Encounter - Ramon Bragg RP - 11/19/2022 8:19 AM EDT Refill pharmacists currently not authorized to approve refills for this class of medication per refill protocol. Please approve if appropriate. Thanks, Ramon Bragg, PharmD Clinical Pharmacist Telepharmacy [phone] 11/19/2022, 8:19 AM documented in this encounter Plan of Treatment Upcoming Encounters Date Type Specialty Care Team Description 11/22/2022 Telemedicine Pharmacy [place] [address] [place] [address] 11/25/2022 Imaging Radiology 11/27/2022 [facility] Lashay Blevins PA-C [address] [place] [address] Beverly Lozoya, [address] [place] [address] 12/27/2022 Cardiac Studies Cardiac Studies 01/13/2023 Office Visit Cardiology [facility] Brewster [facility]C [address] [facility] [place] [address] 01/22/2023 Office Visit Infectious Disease Vidya Fabian MD [address] [place] [address] 04/09/2023 Office Visit Urology Alfredo Panda MD [address] [place] [address] 04/28/2023 Office Visit Family Medicine Carmen Sifuentes MD [address] [facility] [place] [id number] 05/09/2023 Office Visit Gastroenterology Wendy Frias, DO [address] [place] [address] Scheduled Procedures Name Priority Associated Diagnoses Date/Ti [...] Additional history exists CKD HGB USE SMARTSET 32270 04/25/202304/25, 04/25/2022, 03/01/2022, Additional history exists GFR - Renal Function 05/21/2023 11/18/2022, 10/23/2022, 04/25/2022, Additional history exists Albumin/Creatinine Ratio 10/24/2023 023, 07/17/2022, 10/05/2020, Additional history exists CKD PHOS USE SMARTSET 38138 10/24/202310/05, 02/18/2022, 02/17/2022, Additional history exists TSH [...] this encounter Medical Devices Implanted Type Area Fast Food Assistant Restaurant Manager Device Identifier Shelf Expiration Date Model / Serial / Lot Sut Steel 6 [id number] - [id number] Implanted:Qty: 1 on 02/15/2011 at OR [facility] N/A: Chest DO NOT USE 07/21/2015 [id number] / / [id number] documented as of this encounter Advance Directives Documents on File Type Date Recorded Patient Congressional Assistant Expl 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 Question Answer Comments Discussion of Advance Directives occurred with: Patient Does the patient have a Living Will? No Does the patient have Health Care Power of Career Development Coordinator? No Code Status History Code Status [...] the patient have Health Care Power of Career Development Coordinator? No Full Code 02/01/2010 4:02 PM 02/02/2010 4:09 PM This order reflects the patients wishes and were consensually agreed upon. Question Answer Comments Discussion of Advance Directives occurred with: Not Discussed Does the patient have a Living Will? No Does the patient have Health Care Power of Career Development Coordinator? No Healthcare Agents on File Name Relationship Healthcare Agent Relationsfl p Communication Carolyn Ballard Adult Child Health Care Agent Care Teams Electrical Logger Relationship Specialty Start Date End Date Carmen Sifuentes MD [address] [place] [address] PCP - General Family Medicine 07/16/17 documented as of this encounter
--- OUTSIDE RECORDS SUMMARY | 2023-05-17 12:24 | External Medical Summary | Summary of Care ---
Author Name Unknown Organization [facility] Address [address] [place] [address] Phone [phone] Care Team Providers Care Certified Mortician Name Role Phone Brian Domínguez MD Primary Care Provider [phone]- [phone] Reason for Visit * Reason Comments Dosage Adjustment In Person (Anticoag Cl inic) Diabetes Follow-Up Encounter Details Date Type Department Care Team Description 09/26/2022 Telemedicine Pharmacy, [address] [address] [facility] [address] [place] [address] Type 2 diabetes mellitus with diabetic neuropathy, with long-term current use of insulin (HCC)* Allergies Active Allergy Reactions Severity Noted Date Comments Propoxyphene Hcl Rash Low 10/29/2010 Fentanyl Diarrhea Low 04/26/2010 anxiety Methocarbamol Medium 10/05/2020 Other reaction(s): Delirium Methocarbamol Low 04/15/2007 Zolpidem Low 10/05/2020 Other reaction(s): Confusion documented as of this encounter (statuses as of 11/22/2022) Medications Medication Sig Dispensed Refills Start Date End Date Status ARIPiprazole (ABILIFY) 2 MG Tablet Take 1 Tablet by mouth in the morning. 0 07/11/19 16 Active venlafaxine XR (EFFEXOR XR) 150 MG [id number]:De pression Take 1 Cap by mouth daily. With food. 30 Cap 5 09/02/19 17 Active Additional Information Patient taking differently: 225 mgOral Daily(AM), With food.,Indications: Takes 225 mg total every morning with food (150 mg tab + 75 mg tab), Reported on 06/24/2022 Blood Glucose Monitoring Suppl (D-Bringrs GLUCOMETER) w/Device KITIndications:Unc ontrolled type 2 diabetes mellitus without complication, without long-term current use of insulin Use as directed. Use as directed once daily 1 Kit 0 11/19/19 18 Active Blood Glucose Monitoring Suppl (AdventEnnaIO) w/Device KIT Use as directed. Use as directed. 1 Kit 0 11/01/19 19 Active Spacer/Aero-Holdin g Chambers WISAM Use with inhaler. Wheezing/bronchit is. 1 Device 0 04/08/20 19 Active RedCap Lancets 33G MISC USE UP TO FOUR TIMES A DAY Dx:E11.4 100 Each 5 09/30/19 20 Active Lancet Devices (FanBridge DELICA LANCING DEV) MISC Use four times [...] minutes 25 Tablet 5 09/25/19 22 Active Additional Information Patient not taking.Reported on 09/18/2022 Lactulose 10 GM/15ML Oral Solution (Constulose)Indica tions:Chronic liver disease and cirrhosis (HCC) TAKE 45 ML BY MOUTH TWICE DAILY DIRECTED 2700 mL 5 10/05/19 22 Active Ondansetron HCl 8 MG Oral Tablet (Zofran)Indication s:Nausea TAKE ONE TABLET BY MOUTH EVERY EIGHT HOURS NEEDED FOR NAUSEA 60 Tablet 12/29/19 Active Budesonide-Formote rol Fumarate 160-4.5 MCG/ACT Inhalation Aerosol (Symbicort) Inhale by mouth 2 Puffs in the morning AND 2 Puffs before bedtime. 10.2 g 02/19/20 Active lamoTRIgine 100 MG Oral Tablet (LaMICtal) Take 1 Tablet by mouth every morning. 30 Tablet 5 03/12/20 Active Levothyroxine Sodium 88 MCG Oral Tablet (Levoxyl)Indicatio ns:Hypothyroidism TAKE 1 TABLET BY MOUTH ONCE DAILY at least 30 minutes before breakfast and other medications 90 Tablet 03/13/20 22 Active Polyethylene Glycol 3350 17 GM/SCOOP Oral Powder (Miralax) USE 1/2 OF BOTTLE IN 32 OUNCES OF GATORADE THE DAY BEFORE AND THE DAY OF PROCEDURE DIRECTED 238 g 0 03/19/20 22 Active UltiCare Pen Eckert 31G X 5 MM (Insulin Pen Needle) USE ONE NEEDLE TWICE DAILY 200 Each 3 04/03/20 Active Insulin Glargine Solostar 100 UNIT/ML Subcutaneous Solution Pen-injector (Basaglar KwikPen)Indication s:Type 2 diabetes mellitus with diabetic neuropathy, with long-term current use of insulin ([facility]) Inject 30 units under the skin twice daily 45 mL 3 04/16/20 22 Active Insulin Glargine Solostar 100 UNIT/ML Subcutaneous Solution Pen-injector (Basaglar KwikPen)Indication s:Type 2 diabetes mellitus with diabetic neuropathy, with long-term current use of insulin ([facility]) Inject 30 units under the [...] Respimat 2.5 MCG/ACT Inhalation Aerosol Solution (Tiotropium [place] Monohydrate) Inhale by mouth 2 Puffs in the morning. 4 g 3 04/25/20 22 Active Additional Information Patient not taking.Reported on 09/19/2022 Estradiol 0.1 MG/GM Vaginal Cream Administer into [...] Oral Tablet (Demadex)Indicatio ns:Atherosclerotic heart disease of [place] coronary artery with other forms of angina [...] 22 Active Vitamin D (Ergocalciferol) 1.25 MG (70940 UT) Oral Capsule (Drisdol)Indicatio ns:Vitamin D deficiency [...] chew 50 Capsule 0 07/10/19 23 Active Cool Planet Energy SystemsS Disposable Nebulizer Kit Use as directed 1 Kit 0 07/17/19 23 Active Spironolactone 50 MG Oral Tablet (Aldactone)Indicat ions:GONAZLEZ (nonalcoholic steatohepatitis),P ortal hypertension (HCC),Chronic liver disease [...] 60 Capsule 5 08/22/19 23 Active Nystatin 926239 UNIT/ML Mouth/Throat Suspension Swish and swallow 5 [...] bedtime. 60 Tablet 3 09/19/19 23 Active Fosfomycin Tromethamine 3 GM Oral Packet (Monurol) Take 3 g by mouth every 3 days. 1 Packet 0 09/19/19 23 Active lamoTRIgine 25 MG Oral [...] dinner. 30 Tablet 5 09/27/19 23 Active Albuterol Sulfate HFA 108 (90 Base) MCG/ACT Inhalation Aerosol SolutionIndication s:Cough Use two puffs four times a day, as directed 18 g 3 06/08/20 21 023 Discontinued(Re fill) Vitamin C 500 MG Oral CapsuleIndications :Recurrent UTI Take by mouth 500 mg 2 times a day . 60 Capsule 5 02/16/20 22 023 Discontinued Oxybutynin Chloride ER 10 MG Oral Tablet Extended Release 24 Hour (Ditropan XL) Take by mouth 1 Tablet in the morning. 90 Tablet 3 02/12/20 22 023 Discontinued Famotidine 10 MG Oral Tablet (Pepcid)Indication s:Gastroesophageal reflux disease without esophagitis Take 1 Tablet (10 mg) by mouth at bedtime as needed for Heartburn. For heartburn 90 Tablet 5 05/17/20 22 023 Discontinued(Me dication/Dose Changed) Potassium Chloride Mag ER 20 MEQ Oral Tablet Extended Release Take 1 Tablet by mouth in the morning. Use when taking additional Torsemide. 30 Tablet 1 07/17/19 23 023 Discontinued clonazePAM 0.5 MG Oral Tablet (KlonoPIN)Indicati ons:Bipolar I disorder, most recent episode depressed, moderate (HCC) TAKE ONE TABLET BY MOUTH THREE TIMES DAILY 90 Tablet 0 09/03/19 23 023 Discontinued(Re fill) Morphine Sulfate ER 15 MG Oral Tablet Extended Release (Ms Contin)Indications :Lumbar spondylosis Take 1 Tablet by mouth at bedtime as needed for Pain, Severe. 30 Tablet 0 09/03/19 23 023 Discontinued(Re fill) oxyCODONE HCl 5 MG Oral Tablet (Oxy IR)Indications:Lum bar spondylosis Take 1 Tablet by mouth every 8 hours as needed (pain). 60 Tablet 0 09/03/19 23 023 Discontinued(Re fill) Sulfamethoxazole-T rimethoprim 800-160 MG Oral Tablet (Bactrim DS) Take 1 Tablet by mouth in the morning and 1 Tablet before bedtime. Use as directed.. 20 Tablet 0 09/25/19 23 023 Discontinued(Me dication/Dose Changed) Hospital, Clinic, or Other Facility Administered [...] as of this encounter (statuses as of 11/22/2022) Active Problems Problem Noted Date Hypertensive heart and kidne y disease with chronic diastolic congestive heart failure and stage 3a chronic kidney disease 12/28/2021 Last Assessment & Plan: Euvolemic, BP stable EF 55% 09/25 GFR 69 02/25 -Continue Torsemide 20 mg BID, Spironolactone 25 mg BID, Tropol XL 50 mg daily Atherosclerotic heart diseas e of [place] coronary artery with other forms of angina pectoris 11/15/2021 Last Assessment & Plan: Stable. No angina -continue toprol, ASA and statin Seasonal allergies 11/15/2021 Recurrent UTI 10/07/2021 Last Assessment & Plan: Followed by urology Pt is supposed to be on methenamine--will need to clarify with dgt that she is giving this. 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 Patient location: HOME. I was in a hospital or clinic location. After connecting through televideo,patient was verified with two unique identifiers. Patient (or authorized legal financial services representative) was then informed that this was a Telemedicine visit and being conducted confidentially over secure lines. Methods to assure confidentiality were taken. Patient acknowledged consent and understanding of pr ivacy and security of the Telemedicine visit. The patient agreed to participate. Medication Therapy Disease Management Clinic - Diabetes Management Progress Note Angelina Ballard, identified by name and date of , is a 72 year old female being seen for diabetes management/education. Patient presents for return diabetic visit. DIABETES: Current diabetic medications: Basaglar 30 units BID per med list(patient is taking 35units twice a day) Trulicity 4.5mg once weekly Target Hgb A1c:<7% GFR 68 as of 04/25/2022 Medication Injection Site: Abdomen Lifestyle: Diet: unchanged Glucose Review/SMBG: Readings obtained from patient device Hypoglycemia: Does your blood sugar go below 70 mg/dL? No Hyperglycemia symptoms present: none Recent Labs Units 04/25/22 1645 11/01/21 1547 HEMOGLOBIN A1C - [facility] % 5.6 8.3* Recent Labs Units 04/25/22 1645 03/01/22 0753 02/22/22 0550 ESTIMATED GLOMERULAR FILTRATION RATE - [facility] mL/min 68 69 57* CREATININE - [facility] mg/dL 0.9 0.9 1.0 HYPERTENSION: Patient on ACEi/ARB: no, deferred to future visits BP Readings from Last 3 Encounters: 09/19/22 133/67 09/18/22 126/78 09/12/22 130/78 Blood pressure at goal: yes HYPERLIPIDEMIA: Patient is taking moderate or high intensity statin: yes HEALTH MAINTENANCE REVIEW: Health Maintenance Due Topic Date Due DXA Scan Never done Hepatitis B (1 of 3 - Risk 3-dose series) Never done Mammogram 07/04/2011 Zoster Vaccines (2 of 3) 10/04/2016 Depression, Most Recent Score >= 10 (will fire each visit until score < 10) 05/23/2020 DIABETES-FOOT EXAM 05/22/2021 DIABETES-EYE EXAM 06/05/2021 COVID-19 Vaccine (4 - Booster for Moderna series) 08/05/2021 HgA1C 10/24/2022 ASSESSMENT & PLAN: ICD-10-CM 1. Type 2 diabetes mellitus with diabetic neuropathy, with long-term current use of insulin ([facility]) E11.40 Z79.4 Treatment Considerations: [facility] patient, Has full-time caretaker grounds "Radha"; Hx of UTIs, not a good candidate for Jardiance; Metformin stomach upset in past per chart review, can reassess in the future ifneeded BG Readings - Blood sugars reviewed per [employer] download above. Only available 09/04-09/17. Patient reports she ran out of sensors. Provided with supplier, Cornelio's phone number . Instructed to contact regarding next sensor shipment. Over patient reports she enjoys using TournEase. Of note, patient had recent UTI. Reports since 09/17 BG readings have improved. Medications - Reviewed current regimen. Lengthy discussion with patient regarding next steps in treatment. Metformin was found to be used in the past but per chart review was stopped. Discussed with patient who reports she stopped due to things she had heard about metformin. Discussed the risks andbenefits associated. Discussed the advantages of metformin as opposed to insulin. Patient agreeableto trial of 1 tablet daily. Rx sent to pharmacy. Of note, patient reports since last Kel[place] sensor, readings have improved greatly. Notes to some in the 80s. Will plan to reduce insulin doses to previous dose of 30units BID. Diet, Exercise, Lifestyle - No significant lifestyle changes since last visit. Patient is agreeable to SMBG daily with CGM ([employer]) Patient aware to contact clinic if any hypoglycemia before next visit. MEDICATION CHANGES: yes, see below; preferred pharmacy: [facility] Medications: Basaglar 30 units BID START Metformin ER 500mg daily Trulicity 4.5mg once weekly Target Hgb A1c:<7% GFR 68 as of 04/25/2022 HEALTH MAINTENANCE INTERVENTIONS: Video visit, deferred to inperson PCP appointment FOLLOW UP: Return to clinic in 4 weeks 10/23/2022 Angie Castro [facility] Clinical Pharmacist - Open Hearth Laborer Medication Therapy Management Clinic 09/26/2022, 2:57 PM documented in this encounter Plan of Treatment Upcoming Encounters Date Type Specialty Care Team Description 11/25/2022 Imaging Radiology 11/27/2022 Telemedicine [facility] Lashay Blevins PA-C [address] [place] [address] Beverly Lozoya [address] [place] [address] 12/27/2022 Cardiac Studies Cardiac Studies 01/13/2023 Office Visit Cardiology Sobia Brewster PA-C [address] [place] [address] 01/22/2023 Office Visit Infectious Disease Vidya Fabian MD [address] [facility], [place] [address] 04/09/2023 Office Visit Urology Alfredo Panda MD [address] [place] [address] 04/28/2023 Office Visit Family Medicine Brian Domínguez MD [address] [place] [address] 05/09/2023 Office Visit Gastroenterology Wendy Frias, DO [address] [place] [address] Scheduled Procedures Name Priority Associated Diagnoses Date/Ti [...] Additional history exists CKD PHOS USE SMARTSET 92603 10/24/202310/05, 02/18/2022, 02/17/2022, Additional history exists TSH FOR THYROID MEDICATION MONITORING YEARLY 10/24/2023 10/23/2022, 02/28/2022, 09/24/2021, Additional history exists CKD HGB USE SMARTSET 41446 11/22/202311/21, 11/21/2022, 04/25/2022, Additional history exists Colonoscopy [...] this encounter Medical Devices Implanted Type Area Tone Artist Apprentice Device Identifier Shelf Expiration Date Model / Serial / Lot Sut Steel 6 [id number] - [id number] [place]ed:Q[place] 1 [place]2011 [place] [facility] [place] Chest DO NOT USE 07/21/2015 [id number] / / [id number] documented as of this encounter Visit Diagnoses Diagnosis Type 2 diabetes mellitus with diabetic neuropathy, with long-term current use of insulin (HCC)- Primary documented in this encounter Advance Directives Documents on File Type Date Recorded Patient Rn Wound Expl anation POL 05/06/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 Question Answer Comments Discussion of Advance Directives occurred with: Patient Does the patient have a Living Will? No Does the patient have Health Care Power of Commercial Kitchen Service Technician? No Code Status History Code Status [...] the patient have Health Care Power of Commercial Kitchen Service Technician? No Full Code 02/01/2010 4:02 PM 02/02/2010 4:09 PM This order reflects the patients wishes and were consensually agreed upon. Question Answer Comments Discussion of Advance Directives occurred with: Not Discussed Does the patient have a Living Will? No Does the patient have Health Care Power of Commercial Kitchen Service Technician? No Healthcare Agents on File Name Relationship Healthcare Agent [facility] p Communication Carolyn Ballard Adult Child Health Care Agent Care Teams Certified Mortician Relationship Specialty Start Date End Date Brian Domínguez MD [address] [place] [address] PCP - General Family Medicine 07/16/17 documented as of this encounter
--- OUTSIDE RECORDS SUMMARY | 2023-05-17 12:24 | External Medical Summary | Summary of Care ---
Author Name Unknown Organization [facility] Address [address] [place] [address] Phone [phone] Care Team Providers Care Retail Product Advisor Name Role Phone Brian Domínguez MD Primary Care Provider [phone]- [phone] Reason for Referral * Ancillary Services (Within 3 days (urgent)) - Authorized Specialty Diagnoses / Procedures Referred By Mitchell chavez Referred To Contact Yield Analyst Diagnoses Generalized weakness Lashay Blevins PA-C [address] [place] [address] Referral ID Status Reason Start Date Expiration Date Visits Requested Visits Authorized [id number] Authorized Ancillary Services Required 11/19/2022 999 999 Question Answer Referral Priority Within 3 days (urgent) Comments Is Patient homebound? Yes All sections [...] on the next service day for the [facility] Home Phlebotomy does not service every geographical location on a daily basis. Contact [facility] at to find out service days for a specific location. Medical Laboratory [address] [place] [address] Brady Ambrosio M.D. Director and Repairer Engine Production Patient Name: Angelina Ballard : 1950 Sex: female Address [address] [place] [address] Provider: None? Brian Domínguez MD? Diagnosis: Tests Requested CBC Encounter Details Date Type Department Care Team Description 11/19/2022 Orders Only [facility] [place] [address] [place] [address] Lashay Blevins PA-C [address] [place] [address] Generalized weakness* Allergies Active Allergy Reactions Severity Noted Date [...] Active venlafaxine XR (EFFEXOR XR) 150 MG [id number]:Dep ression Take 1 Cap by mouth daily. [...] 0 11/18/2017 Active Blood Glucose Monitoring Suppl (ONETOUCH VERIO) w/Device KIT Use as directed. Use [...] 238 g 0 03/19/2022 Active UltiCare Pen Jay 31G X 5 MM (Insulin Pen Needle) USE ONE NEEDLE TWICE DAILY 200 Each 3 04/03/2022 Active Insulin Glargine Solostar 100 UNIT/ML Subcutaneous Solution Pen-injector (FaithStreetaglar KwikPen)Indications :Type 2 diabetes mellitus with diabetic neuropathy, with long-term current use of insulin (HCC) Inject 30 units under the skin twice daily 45 mL 3 04/16/2022 Active Insulin Glargine Solostar 100 UNIT/ML Subcutaneous Solution Pen-injector (FaithStreetaglar KwikPen)Indications :Type 2 diabetes mellitus with diabetic neuropathy, with long-term current use of insulin ([facility]) Inject 30 units under the [...] Oral Tablet (Demadex)Indication s:Atherosclerotic heart disease of [place] coronary artery with other forms of angina [...] 06/05/2022 Active Vitamin D (Ergocalciferol) 1.25 MG (59758 UT) Oral Capsule (Drisdol)Indication s:Vitamin D deficiency [...] or chew 50 Capsule 0 07/10/2022 Active GreenPocket Disposable Nebulizer Kit Use as directed 1 [...] DAILY 60 Capsule 5 08/22/2022 Active Nystatin 628890 UNIT/ML Mouth/Throat Suspension Swish and swallow 5 [...] mg daily Atherosclerotic heart diseas e of [place] coronary artery with other forms of angina pectoris 11/15/2021 Last Assessment & Plan: Stable. No angina -continue toprol, ASA and statin Seasonal allergies 11/15/2021 Recurrent UTI 10/07/2021 Last Assessment & Plan: Followed by urology Pt is supposed to be on methenamine--will need to clarify with dgt that she is giving this. 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 1 [...] Care Team Description 11/21/2022 Laboratory Laboratory Processing [facility] [address] [place] [address] 11/22/2022 Telemedicine Psychiatric [address] [place] [address] 11/25/2022 Imaging Radiology 11/27/2022 Telemedicine [facility] Lashay Blevins PA-C [address] [place] [address] Beverly Lozoya, [address] [place] [address] 12/27/2022 Cardiac Studies Cardiac Studies 01/13/2023 Office Visit Cardiology oSbia Brewster PA-C [address] [place] [address] 01/22/2023 Office Visit Infectious Disease Vidya Fabian MD [address] [place], [place] [id number] 04/09/2023 Office Visit Urology Alfredo Panda MD [address] [place] [address] 04/28/2023 Office Visit Family Medicine Brian Domínguez MD [address] [place] [address] 05/09/2023 Office Visit Gastroenterology Wendy Frias DO [address] [place] [address] Scheduled Orders Name Type Priority Associated Diagnoses Orde r Schedule CBC WITH WBC DIFFERENTIAL AND ANEMIA REFLEX WORKUP Lab Routine Generalized weakness Expected: 11/19/2022 (Approximate), Expires: 11/20/2023 Scheduled Procedures Name Priority Associated Diagnoses Date/Ti me COLONOSCOPY FLEXIBLE PROXIMA L DIAGNOSTIC Recall Special screening for malignant neoplasms, colon Scheduled Referrals Name Type Priority Associated Diagnoses Orde r Schedule HOME PHLEBOTOMY REFERRAL OP Referral Within 3 days (urgent) Generalized weakness Ordered: 11/19/2022 Health Maintenance Due Date Last Done Comments [...] Additional history exists CKD HGB USE SMARTSET 30703 04/25/202304/25, 04/25/2022, 03/01/2022, Additional history exists GFR - Renal Function 05/21/2023 11/18/2022, 10/23/2022, 04/25/2022, Additional history exists Albumin/Creatinine Ratio 10/24/2023 023, 07/17/2022, 10/05/2020, Additional history exists CKD PHOS USE SMARTSET 18563 10/24/202310/053, 02/18/2022, 02/17/2022, Additional history exists TSH FOR [...] this encounter Medical Devices Implanted Type Area Integration Project Manager Device Identifier Shelf Expiration Date Model / Serial / Lot Sut Steel 6 [id number] - [id number] Implanted:Qty: 1 on 02/15/2011 [place] [facility] [place] Chest DO NOT USE 07/21/2015 [id number] / / [id number] documented as of this encounter Visit Diagnoses Diagnosis Generalized weakness- Primary Other malaise and fatigue documented in this encounter Advance Directives Documents on File Type Date Recorded Patient Real Time Operator Expl anation POL 05/06/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 Question Answer Comments Discussion of Advance Directives occurred with: Patient Does the patient have a Living Will? No Does the patient have Health Care Power of Silverware Etcher? No Code Status History Code Status Date [...] the patient have Health Care Power of Silverware Etcher? No Full Code 02/01/2010 4:02 PM 02/02/2010 4:09 PM This order reflects the patients wishes and were consensually agreed upon. Question Answer Comments Discussion of Advance Directives occurred with: Not Discussed Does the patient have a Living Will? No Does the patient have Health Care Power of Silverware Etcher? No Healthcare Agents on File Name Relationship Healthcare Agent [facility] Communication Carolyntimothy Ballard Adult Child Health Care Agent Care Teams Retail Product Advisor Relationship Specialty Start Date End Date Brian Domínguez MD [address] [place] [address] PCP - General Family Medicine 07/16/17 documented as of this encounter
--- OUTSIDE RECORDS SUMMARY | 2023-05-17 12:24 | External Medical Summary ---
Author Name Unknown Address Unknown Organization K01:LABORATORY [facility] [place] - [address] [place] [address] Laboratory Report Ordering Provider Test Date Status LETTY UMANZOR 11/21/2022 09:02:00 Final Observation Date Value Abnormality Reference (Units ) Status Iron 11/21/2022 09:02:00 55 33-151 (ug /dL) Final Iron-binding capacity 11/21/2022 09:02:00 317 250-425 (ug/dL) Final Transferrin Sat % 11/21/2022 09:02:00 17 15 -55 (%) Final Performing Location LAB[facility]ATORY [facility] - [address] [place] [address]
--- OUTSIDE RECORDS SUMMARY | 2023-05-17 12:24 | External Medical Summary ---
Author Name Unknown Address Unknown Organization K01:LABORATORY [facility] - [address] [place] [address] Laboratory Report Ordering Provider Test Date Status LETTY UMANZOR 11/21/2022 09:02:00 Final Observation Date Value Abnormality Reference (Units ) Status WBC, Total 11/21/2022 09:02:00 8.59 4.00-10.8 0 (K/uL) Final RBC 11/21/2022 09:02:00 4.70 3.85-5.15 (M/uL) Final Hemoglobin 11/21/2022 09:02:00 11.8 Below low normal 12 .0-15.3 (g/dL) Final Anemia reflex testing trigge rs on a HGB < 12.0 for Females and HGB < 13.0 for Males in accordance with the WHO Anemia Guidelines HCT 11/21/2022 09:02:00 37.5 36.0-45.2 (%) Final MCV 11/21/2022 09:02:00 79.8 81.5-97.5 (fL) Final MCH 11/21/2022 09:02:00 25.1 27.0-34.0 (pg) Final MCHC 11/21/2022 09:02:00 31.5 32.0-36.0 (g/dL) Final RDW 11/21/2022 09:02:00 16.6 11.5-15.5 (%) Final Platelets 11/21/2022 09:02:00 117 Below low normal 140 -400 (K/uL) Final MPV 11/21/2022 09:02:00 11.5 6.6-11.1 ( fL) Final Nucleated erythrocytes/100 leukocytes [Ratio] in Blood by Automated count 11/21/2022 09:02:00 0 <=0 (/100 WBCs) Final Performing Location [facility] - [address] [place] [address]
--- OUTSIDE RECORDS SUMMARY | 2023-05-17 12:24 | External Medical Summary ---
Author Name Unknown Address Unknown Organization K01:LABORATORY [facility] [place] - [address] [place] [address] Laboratory Report Ordering Provider Test Date Status LETTY UMANZOR 11/21/2022 09:02:00 Final Observation Date Value Abnormality Reference (Units ) Status Ferritin 11/21/2022 09:02:00 32 13-150 (ng /mL) Final Postmenopausal women have hi gher ferritin levels than pre-menopausal women. The above reference interval is based on pre-menopausal women. Performing Location LABORATORY [facility] [place] - [address] [place] [address]
--- OUTSIDE RECORDS SUMMARY | 2023-05-17 12:24 | External Medical Summary ---
Author Name Unknown Address Unknown Organization K01:[facility]ATORY [facility] [place] - [address] [place] [address] Laboratory Report Ordering Provider Test Date Status LETTY UMANZOR 11/21/2022 09:02:00 Final Observation Date Value Abnormality Reference (Units ) Status Retic, % (auto) 11/21/2022 09:02:00 2.27 Above high normal 0.80-1.90 (%) Final Reticulocytes, Absolute 11/21/2022 09:02:00 108.3 Above high normal 31.3-100.1 (K/uL) Final Reticulocyte fraction, immature 11/21/2022 09:02:00 13.0 2.5-20.6 (%) Final Reticulocyte HGB 11/21/2022 09:02:00 28.8 Below low normal 29.7-37.4 (pg) Final Performing Location LAB[facility]ATORY [facility] [place] - [address] [place] [address]
--- OUTSIDE RECORDS SUMMARY | 2023-05-17 12:24 | External Medical Summary ---
Author Name Unknown Address Unknown Organization K01:LABORATORY [facility] - [address] [place] [facility] [address] Laboratory Report Ordering Provider Test Date Status LETTY UMANZOR 11/21/2022 09:02:00 Final Observation Date Value Abnormality Reference (Units ) Status SYNC LEUKOCYTES IN BLOOD BY AUTOMATED COUNT 11/21/2022 09:02:00 8.59 4.00-10.80 (K/uL) Final Segs 11/21/2022 09:02:00 61.5 40.0-75.0 (%) Final Lymphs % 11/21/2022 09:02:00 23.1 18.0-42.0 (%) Final Monos 11/21/2022 09:02:00 8.6 1.0-11.0 (%) Final Eosinophils 11/21/2022 09:02:00 5.4 0.0-6.0 (%) Final Basos 11/21/2022 09:02:00 0.6 0.0-2.0 (%) Final Immature Granulocyte, Percent 11/21/2022 09:02:00 0.8 0.0-2.0 (%) Final Absolute Segs 11/21/2022 09:02:00 5.29 1.80-7.70 (K/uL) Final Lymphs, absolute 11/21/2022 09:02:00 1.98 1.00-4.80 (K/ul) Final Monos, Abs 11/21/2022 09:02:00 0.74 0.00-1.10 (K/uL) Final Eos, Abs 11/21/2022 09:02:00 0.46 0.00-0.70 (K/uL) Final Basos, Abs 11/21/2022 09:02:00 0.05 0.00-0.20 (K/uL) Final Immature Granulocytes, Number 11/21/2022 09:02:00 0.07 0.00-0.20 (K/uL) Final Performing Location LABORATORY [facility] [place] - [address] [facility] [address]
--- OUTSIDE RECORDS SUMMARY | 2023-05-17 12:24 | External Medical Summary | Summary of Care ---
Author Name Unknown Organization [facility] Address [address] [place] [address] Phone [phone] Care Team Providers Care Flight Radio Operator Name Role Phone Brian Domínguez MD Primary Care Provider +1- [phone] Reason for Visit * Reason Onset Date Comments Test Results 11/19/2022 Encounter Details Date Type Department Care Team Description 11/19/2022 Telephone [facility] [place] [address] [place] [address] Lashay Blevins PA-C [address] [place] [address] Test Results Allergies Active Allergy [...] Active venlafaxine XR (EFFEXOR XR) 150 MG [id number]:Dep ression Take 1 Cap by mouth daily. [...] 0 11/18/2017 Active Blood Glucose Monitoring Suppl (Really SimpleIO) w/Device KIT Use as directed. Use as directed. 1 Kit 0 10/31/2018 Active Spacer/Aero-Holding Chambers WISAM Use with inhaler. Wheezing/bronchitis . 1 Device 0 04/08/2019 Active TubeMoguluch DelHealthTell Lancets 33G MISC USE UP TO FOUR TIMES A DAY Dx:E11.4 100 Each 5 09/30/2019 Active Lancet Devices (blinkboxTOUCH DELICA LANCING DEV) MISC Use four times [...] 238 g 0 03/19/2022 Active UltiCare Pen [place] 31G X 5 MM (Insulin Pen Needle) USE ONE NEEDLE TWICE DAILY 200 Each 3 04/03/2022 Active Insulin Glargine Solostar 100 UNIT/ML Subcutaneous Solution Pen-injector (Basaglar KwikPen)Indications :Type 2 diabetes mellitus with diabetic neuropathy, with long-term current use of insulin ([facility]) Inject 30 units under the skin twice daily 45 mL 3 04/16/2022 Active Insulin Glargine Solostar 100 UNIT/ML Subcutaneous Solution Pen-injector (Basaglar KwikPen)Indications :Type 2 diabetes mellitus with diabetic neuropathy, with long-term current use of insulin ([facility]) Inject 30 units under the skin twice [...] Respimat 2.5 MCG/ACT Inhalation Aerosol Solution (Tiotropium [place] Monohydrate) Inhale by mouth 2 Puffs in [...] Oral Tablet (Demadex)Indication s:Atherosclerotic heart disease of [place] coronary artery with other forms of [...] 06/05/2022 Active Vitamin D (Ergocalciferol) 1.25 MG (36322 UT) Oral Capsule (Drisdol)Indication s:Vitamin D deficiency [...] DAILY 60 Capsule 5 08/22/2022 Active Nystatin 115372 UNIT/ML Mouth/Throat Suspension Swish and swallow 5 [...] mg daily Atherosclerotic heart diseas e of [place] coronary artery with other forms of angina pectoris 11/15/2021 Last Assessment & Plan: Stable. No angina -continue toprol, ASA and statin Seasonal allergies 11/15/2021 Recurrent UTI 10/07/2021 Last Assessment & Plan: Followed by urology Pt is supposed to be on methenamine--will need to clarify with dgt that she is giving this. 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 Edema is improved. I reviewed recent BMP results. Advised she should increase sodium intake but continue monitor edema. Reach out with any acute concerns. GRIZZLY WORKER to call lab as the CBC was collected but notprocessed. documented in this encounter Plan of Treatment Upcoming Encounters Date Type Specialty Care Team Description 11/22/2022 Telemedicine Pharmacy [facility] [address] [place] [address] 11/25/2022 Imaging Radiology 11/27/2022 Telemedicine [facility] Lashay Blevins PA-C [address] [place] [address] [place] [address] Beverly Lozoya, [facility] Whipped Topping Mixer [address] [place] [address] [place] [address] 12/27/2022 Cardiac Studies Cardiac Studies 01/13/2023 Office Visit Cardiology Sobia Brewster PA-C [address] [place] [address] 01/22/2023 Office Visit Infectious Disease Vidya Fabian MD [address] [place] [address] 04/09/2023 Office Visit Urology Alfredo Panda MD [address] [place], [place] [phone] 04/28/2023 Office Visit Family Medicine Brian Domínguez MD [address] [place] [address] 05/09/2023 Office Visit Gastroenterology Wendy Frias DO [address] [place] [address] Scheduled Procedures Name Priority Associated Diagnoses Date/Ti [...] Additional history exists CKD HGB USE SMARTSET 70617 04/25/202304/25, 04/25/2022, 03/01/2022, Additional history exists GFR - Renal Function 05/21/2023 11/18/2022, 10/23/2022, 04/25/2022, Additional history exists Albumin/Creatinine Ratio 10/24/2023 023, 07/17/2022, 10/05/2020, Additional history exists CKD PHOS USE SMARTSET 58445 10/24/202310/05, 02/18/2022, 02/17/2022, Additional history exists TSH [...] this encounter Medical Devices Implanted Type Area Ophthalmic Surgical Assistant Device Identifier Shelf Expiration Date Model / Serial / Lot Sut Steel 6 [id number] - [id number] Implanted:Qty: 1 on 02/15/2011 at OR [facility] N/A: Chest DO NOT USE 07/21/2015 [id number] / / [id number] documented as of this encounter Advance Directives Documents on File Type Date Recorded Patient Psychiatrist 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 Question Answer Comments Discussion of Advance Directives occurred with: Patient Does the patient have a Living Will? No Does the patient have Health Care Power of Handyman? No Code Status History Code Status Date [...] the patient have Health Care Power of Handyman? No Full Code 02/01/2010 4:02 PM 02/02/2010 4:09 PM This order reflects the patients wishes and were consensually agreed upon. Question Answer Comments Discussion of Advance Directives occurred with: Not Discussed Does the patient have a Living Will? No Does the patient have Health Care Power of Handyman? No Healthcare Agents on File Name Relationship Healthcare Agent [facility] Communication Carolyn Ballard Adult Child Health Care Agent Care Teams Flight Radio Operator Relationship Specialty Start Date End Date Brian Domínguez MD [address] [place] [address] PCP - General Family Medicine 07/16/17 documented as of this encounter
--- OUTSIDE RECORDS SUMMARY | 2023-05-17 12:24 | External Medical Summary | Summary of Care ---
Author Name Unknown Organization [facility] Address [address] [place] [address] Phone [phone] Care Team Providers Care Outreach Associate Name Role Phone Brian Domínguez MD Primary Care Provider [phone]- [phone] Reason for Visit * Reason Onset Date Comments Appointment 11/25/2022 Encounter Details Date Type Department Care Team Description 11/25/2022 Telephone [facility] [place] [address] [place], [place] [id number] Services, Scheduling [address] [place] [address] Appointment (/) Allergies Active Allergy Reactions Severity [...] Active venlafaxine XR (EFFEXOR XR) 150 MG [id number]:Dep ression Take 1 Cap by mouth daily. [...] 0 11/18/2017 Active Blood Glucose Monitoring Suppl (Korrio VERIO) w/Device KIT Use as directed. Use [...] 238 g 0 03/19/2022 Active UltiCare Pen [place] 31G X 5 MM (Insulin Pen Needle) [...] Respimat 2.5 MCG/ACT Inhalation Aerosol Solution (Tiotropium [place] Monohydrate) Inhale by mouth 2 Puffs in [...] Oral Tablet (Demadex)Indication s:Atherosclerotic heart disease of [place] coronary artery with other forms of angina [...] 06/05/2022 Active Vitamin D (Ergocalciferol) 1.25 MG (22129 UT) Oral Capsule (Drisdol)Indication s:Vitamin D deficiency [...] DAILY 60 Capsule 5 08/22/2022 Active Nystatin 054167 UNIT/ML Mouth/Throat Suspension Swish and swallow 5 [...] mg daily Atherosclerotic heart diseas e of [place] coronary artery with other forms of angina pectoris 11/15/2021 Last Assessment & Plan: Stable. No angina -continue toprol, ASA and statin Seasonal allergies 11/15/2021 Recurrent UTI 10/07/2021 Last Assessment & Plan: Followed by urology Pt is supposed to be on methenamine--will need to clarify with dgt that she is giving this. 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 1 [...] * Telephone Encounter - DENG Cruz - 11/25/2022 11:19 AM EDT Call to daughter eliot and confirmed return kaco telemed for 11/27 at 1pm, daughter agreeable documented in this encounter Plan of Treatment Upcoming Encounters Date Type Specialty Care Team Description 11/25/2022 Imaging Radiology 11/26/2022 Office Visit Family Medicine Brian Domínguez MD [address] [place] [address] 11/27/2022 Telemedicine [facility] Lahsay Blevins PA-C [address] [place] [address] Beverly Lozoya, [address] [place] [address] 11/29/2022 Pharmacy Pharmacy [facility] [address] [place] [address] 12/27/2022 Cardiac Studies Cardiac Studies 01/13/2023 Office Visit Cardiology Sobia Brewster PA-C [address] [place] [address] 01/22/2023 Office Visit Infectious Disease Vidya Fabian MD [address] [place] [address] 04/09/2023 Office Visit Urology Alfredo Panda MD [address] [place] [address] 05/09/2023 Office Visit Gastroenterology Wendy Frias, DO [address] [place] [address] Scheduled Procedures Name Priority Associated Diagnoses [...] Additional history exists CKD PHOS USE SMARTSET 31689 10/24/202310/05, 02/18/2022, 02/17/2022, Additional history exists TSH FOR THYROID MEDICATION MONITORING YEARLY 10/24/2023 10/23/2022, 02/28/2022, 09/24/2021, Additional history exists CKD HGB USE SMARTSET 00183 11/22/202311/21, 11/21/2022, 04/25/2022, Additional history exists Colonoscopy [...] this encounter Medical Devices Implanted Type Area Blacksmith Assistant Device Identifier Shelf Expiration Date Model / Serial / Lot Sut Steel 6 M654g - [id number] Implanted:Qty: 1 on 02/15/2011 at [place] [facility] [place] N/A: Chest DO NOT USE 07/21/2015 [id number] / / [id number] documented as of this encounter Advance Directives Documents on File Type Date Recorded Patient Fax Machine Operator Expl anation POL 05/06/2018 POLST Latest [...] the patient have Health Care Power of Healthcare Project Manager? No Code Status History Code Status [...] the patient have Health Care Power of Healthcare Project Manager? No Full Code 02/01/2010 4:02 PM 02/02/2010 4:09 PM This order reflects the patients wishes and were consensually agreed upon. Question Answer Comments Discussion of Advance Directives occurred with: Not Discussed Does the patient have a Living Will? No Does the patient have Health Care Power of Healthcare Project Manager? No Healthcare Agents on File Name Relationship Healthcare Agent [facility] Communication Eliot Elio Adult Child Health Care Agent Care Teams Outreach Associate Relationship Specialty Start Date End Date Brian Domínguez MD [address] [place] [address] PCP - General Family Medicine 07/16/17 documented as of this encounter
--- OUTSIDE RECORDS SUMMARY | 2023-05-17 12:25 | External Medical Summary | Summary of Care ---
Author Name Unknown Organization [facility] Address [address] [place] [address] Phone [phone] Care Team Providers Care Community Health Outreach Worker Name Role Phone Brian Domínguez MD Primary Care Provider +1- [phone] Reason for Visit * Reason Comments eRx-Medication Refill Encounter Details Date Type Department Care Team Description 11/19/2022 Refill Urology Kimberly Harmon [address] [place], [place] [phone] Randall Bermudez MD [address] [place] [address] Recurrent UTI Allergies Active Allergy Reactions Severity [...] Active venlafaxine XR (EFFEXOR XR) 150 MG [id number]:De pression Take 1 Cap by mouth daily. With food. 30 Cap 5 09/02/19 17 Active Additional Information Patient taking differently: 225 mgOral Daily(AM), With food.,Indications: Takes 225 mg total every morning with food (150 mg tab + 75 mg tab), Reported on 06/24/2022 Blood Glucose Monitoring Suppl (iDreams[employer]-Health Plotter GLUCOMETER) w/Device KITIndications:Unc ontrolled type 2 diabetes mellitus without complication, without long-term current use of insulin Use as directed. Use as directed once daily 1 Kit 0 11/19/19 18 Active Blood Glucose Monitoring Suppl (Revver) w/Device KIT Use as directed. Use as [...] bedtime. 10.2 g 12 02/19/20 22 Active Oxybutynin Chloride ER 10 MG Oral Tablet Extended Release 24 Hour (Ditropan XL) Take by mouth 1 Tablet in the morning. 90 Tablet 3 02/12/20 22 Active lamoTRIgine 100 MG Oral Tablet [...] g 0 03/19/20 22 Active UltiCare Pen [place] 31G X 5 MM (Insulin Pen Needle) [...] Respimat 2.5 MCG/ACT Inhalation Aerosol Solution (Tiotropium [place] Monohydrate) Inhale by mouth 2 Puffs in [...] Oral Tablet (Demadex)Indicatio ns:Atherosclerotic heart disease of [place] coronary artery with other forms of angina [...] 22 Active Vitamin D (Ergocalciferol) 1.25 MG (23266 UT) Oral Capsule (Drisdol)Indicatio ns:Vitamin D deficiency [...] chew 50 Capsule 0 07/10/19 23 Active Medallia Disposable Nebulizer Kit Use as directed 1 [...] 60 Capsule 5 08/22/19 23 Active Nystatin 941633 UNIT/ML Mouth/Throat Suspension Swish and swallow 5 [...] 20 Capsule 0 11/13/19 23 023 Active Vitamin C 500 MG Oral Tablet (Ascorbic Acid)Indications:R ecurrent UTI TAKE 1 TABLET BY MOUTH TWICE DAILY 60 Tablet 0 11/20/19 23 Active Vitamin C 500 MG Oral Tablet (Ascorbic Acid)Indications:R ecurrent UTI TAKE 1 TABLET BY MOUTH TWICE DAILY 60 Tablet 0 11/18/19 23 023 Discontinued Hospital, Clinic, or Other [...] mg daily Atherosclerotic heart diseas e of [place] coronary artery with other forms of angina pectoris 11/15/2021 Last Assessment & Plan: Stable. No angina -continue toprol, ASA and statin Seasonal allergies 11/15/2021 Recurrent UTI 10/07/2021 Last Assessment & Plan: Followed by urology Pt is supposed to be on methenamine--will need to clarify with dgt that she is giving this. 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 Anxiety 08/05/2017 Fclkvlj-Oriwk-Gymcj disease 06/27/2015 Last Assessment & Plan: Frequent [...] 05/06/2018 019 Atherosclerotic heart diseas e of [place] coronary artery with other forms of angina [...] 10/31/201008/08 Acute coronary syndrome 10/30/2010 01/22/20 14 [place] Research Other*[id number] 02/02/2010 04/18/2014 Overview: [place] [facility], Dr Joel Kwon PI Obesity, [...] encounter Miscellaneous Notes * Telephone Encounter - Pete Duggan PA-C - 11/19/2022 8:08 AM EDT Signed Prescriptions: Disp Refills Vitamin C 500 MG Oral Tablet (Ascorbic Aci*60 Tab*0 Sig: TAKE 1 TABLET BY MOUTH TWICE DAILYAuthorizing Provider: PETE DUGGAN documented in this encounter Plan of Treatment Upcoming Encounters Date Type Specialty Care Team Description 11/22/2022 Telemedicine Pharmacy Branden Castellanos [facility] [address] [facility] [place] [address] 11/25/2022 Imaging Radiology 11/27/2022 Telemedicine [facility] [address] [facility] [address] Beverly Lozoya, [facility] [address] [place] [address] 12/27/2022 Cardiac Studies Cardiac Studies 01/13/2023 Office Visit Cardiology Sobia Brewster PA-C [address] [place] [address] 01/22/2023 Office Visit Infectious Disease Vidya Fabian MD [address] [place], [place] [address] 04/09/2023 Office Visit Urology Alfredo Panda MD [address] [facility] [address] [place], [place] [phone] 04/28/2023 Office Visit Family Medicine Brian Domínguez MD [address] [place] [address] 05/09/2023 Office Visit Gastroenterology Wendy Frias DO [address] [place] [address] Scheduled Procedures Name Priority Associated Diagnoses Date/Ti [...] Additional history exists CKD HGB USE SMARTSET 00760 04/25/202304/25, 04/25/2022, 03/01/2022, Additional history exists GFR - Renal Function 05/21/2023 11/18/2022, 10/23/2022, 04/25/2022, Additional history exists Albumin/Creatinine Ratio 10/24/2023 023, 07/17/2022, 10/05/2020, Additional history exists CKD PHOS USE SMARTSET 40596 10/24/202310/05, 02/18/2022, 02/17/2022, Additional history exists TSH [...] this encounter Medical Devices Implanted Type Area Historic Preservationist Device Identifier Shelf Expiration Date Model / Serial / Lot Jenna Rojas 6 [id number] - [id number] Implanted:Qty: 1 on 02/15/2011 at [place] [facility] [place] N/A: Chest DO NOT USE 07/21/2015 [id number] / / [id number] documented as of this encounter Visit Diagnoses Diagnosis Recurrent UTI Urinary tract infection, site not specified documented in this encounter Advance Directives Documents on File Type Date Recorded Patient Machine Pie Maker Jose GARZON 05/06/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 Question Answer Comments Discussion of Advance Directives occurred with: Patient Does the patient have a Living Will? No Does the patient have Health Care Power of Loading Dock Helper? No Code Status History Code Status [...] the patient have Health Care Power of Loading Dock Helper? No Full Code 02/01/2010 4:02 PM 02/02/2010 4:09 PM This order reflects the patients wishes and were consensually agreed upon. Question Answer Comments Discussion of Advance Directives occurred with: Not Discussed Does the patient have a Living Will? No Does the patient have Health Care Power of Loading Dock Helper? No Healthcare Agents on File Name Relationship Healthcare Agent [facility] Communication Carolyn Ballard Adult Child Health Care Agent Care Teams Community Health Outreach Worker Relationship Specialty Start Date End Date Brian Domínguez MD [address] [place] [address] PCP - General Family Medicine 07/16/17 documented as of this encounter
--- OUTSIDE RECORDS SUMMARY | 2023-05-17 12:25 | External Medical Summary | Summary of Care ---
Author Name Unknown Organization [facility] Address [address] [place] [address] Phone [phone] Care Team Providers Care Occupational Therapy Director Name Role Phone Brian Domínguez MD Primary Care Provider [phone]- [phone] Reason for Visit * Reason Comments eRx-Medication Refill Encounter Details Date Type Department Care Team Description 11/17/2022 Refill Urology Kimberly Harmon [address] [place], [place] [id number] Shailesh Turpin MD [address] [place] [address] Recurrent UTI Allergies Active Allergy Reactions Severity Noted Date Comments Propoxyphene Hcl Rash Low 10/29/2010 Fentanyl Diarrhea Low 04/26/2010 anxiety Methocarbamol Medium 10/05/2020 Other reaction(s): Delirium Methocarbamol Low 04/15/2007 Zolpidem Low 10/05/2020 Other reaction(s): Confusion documented as of this encounter (statuses as of 11/17/2022) Medications Medication Sig Dispensed Refills Start Date End Date Status ARIPiprazole (ABILIFY) 2 MG Tablet Take 1 Tablet by mouth in the morning. 0 07/11/19 16 Active venlafaxine XR (EFFEXOR XR) 150 MG [id number]:De pression Take 1 Cap by mouth daily. With food. 30 Cap 5 09/02/19 17 Active Additional Information Patient taking differently: 225 mgOral Daily(AM), With food.,Indications: Takes 225 mg total every morning with food (150 mg tab + 75 mg tab), Reported on 06/24/2022 Blood Glucose Monitoring Suppl (FoKo-jslyhl GLUCOMETER) w/Device KITIndications:Unc ontrolled type 2 diabetes mellitus without complication, without long-term current use of insulin Use as directed. Use as directed once daily 1 Kit 0 11/19/19 18 Active Blood Glucose Monitoring Suppl (Telerivet) w/Device KIT Use as directed. Use as [...] g 0 03/19/20 22 Active UltiCare Pen [place] 31G X 5 MM (Insulin Pen Needle) USE ONE NEEDLE TWICE DAILY 200 Each 3 04/03/20 22 Active Insulin Glargine Solostar 100 UNIT/ML Subcutaneous Solution Pen-injector (Basaglar KwikPen)Indication s:Type 2 diabetes mellitus with diabetic neuropathy, with long-term current use of insulin ([facility]) Inject 30 units under the skin twice daily 45 mL 3 04/16/20 22 Active Insulin Glargine Solostar 100 UNIT/ML Subcutaneous Solution Pen-injector (Basaglar KwikPen)Indication s:Type 2 diabetes mellitus with diabetic neuropathy, with long-term current use of insulin ([facility]) Inject 30 units under the skin twice [...] Respimat 2.5 MCG/ACT Inhalation Aerosol Solution (Tiotropium [place] Monohydrate) Inhale by mouth 2 Puffs in [...] Oral Tablet (Demadex)Indicatio ns:Atherosclerotic heart disease of [place] coronary artery with other forms of [...] 22 Active Vitamin D (Ergocalciferol) 1.25 MG (96734 UT) Oral Capsule (Drisdol)Indicatio ns:Vitamin D deficiency [...] chew 50 Capsule 0 07/10/19 23 Active OSSIANIXS Disposable Nebulizer Kit Use as directed 1 [...] subcutaneously once per week 6 mL 08/20/19 Active Gabapentin 300 MG Oral Capsule (Neurontin)Indicat ions:Lumbar spondylosis TAKE 1 CAPSULE BY MOUTH TWICE DAILY 60 Capsule 5 08/22/19 Active Nystatin 162739 UNIT/ML Mouth/Throat Suspension Swish and swallow 5 [...] TWICE DAILY 60 Tablet 0 11/18/19 23 Active Vitamin C 500 MG Oral Tablet (Ascorbic Acid)Indications:R ecurrent UTI TAKE 1 TABLET BY MOUTH TWICE DAILY 60 Tablet 0 10/24/19 23 023 Discontinued Hospital, [...] as of this encounter (statuses as of 11/17/2022) Active Problems Problem Noted Date Hypertensive heart and kidne y disease with chronic diastolic congestive heart failure and stage 3a chronic kidney disease 12/28/2021 Last Assessment & Plan: Euvolemic, BP stable EF 55% 09/25 GFR 69 02/25 -Continue Torsemide 20 mg BID, Spironolactone 25 mg BID, Tropol XL 50 mg daily Atherosclerotic heart diseas e of [place] coronary artery with other forms of angina pectoris 11/15/2021 Last Assessment & Plan: Stable. No angina -continue toprol, ASA and statin Seasonal allergies 11/15/2021 Recurrent UTI 10/07/2021 Last Assessment & Plan: Followed by urology Pt is supposed to be on methenamine--will need to clarify with dgt that she is giving this. 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 Anxiety 08/05/2017 Hsnqnts-Oxxsm-Wmwbf disease 06/27/2015 Last Assessment & Plan: Frequent [...] as of this encounter (statuses as of 11/17/2022) Resolved Problems Problem Noted Date Resolved Date [...] 05/06/2018 019 Atherosclerotic heart diseas e of [place] coronary artery with other forms of [...] 10/31/201008/08 Acute coronary syndrome 10/30/2010 01/22/20 14 [place] Research Other*[id number] 02/02/2010 04/18/2014 Overview: [place] [facility], Dr Joel Kwon PI Obesity, morbid [...] as of this encounter (statuses as of 11/17/2022) Immunizations Name Administration Dates Next Due COVID-19 [...] encounter Miscellaneous Notes * Telephone Encounter - Denzel Bermudez MD - 11/17/2022 9:03 AM EDTSigned Prescriptions: Disp Refills Vitamin C 500 MG Oral Tablet (Ascorbic Aci*60 Tab*0 Sig: TAKE 1 TABLET BY MOUTH TWICE DAILYAuthorizing Provider: DENZEL BERMUDEZ documented in this encounter Plan of Treatment Upcoming Encounters Date Type Specialty Care Team Description 11/18/2022 Laboratory Laboratory Processing [facility] Home Draw [address] [place] [address] 11/22/2022 Telemedicine Pharmacy [address] [id number] 11/25/2022 Imaging Radiology 11/27/2022 Telemedicine [facility] Lashay Blevins PA-C [address] [place] [address] Juliann Landeros, Community Health Vocational Technical Education Director [address] [place] [address] 12/27/2022 Cardiac Studies Cardiac Studies 01/13/2023 Office Visit Cardiology Sobia Brewster PA-C [address] [place] [address] 01/22/2023 Office Visit Infectious Disease Vidya Fabian MD [address] [place] [address] 04/09/2023 Office Visit Urology Alfredo Panda MD [address] [place] [address] 04/28/2023 Office Visit Family Medicine Brian Domínguez MD [address] [place] [address] 05/09/2023 Office Visit Gastroenterology Wendy Frias, [address] [place] [address] Scheduled Procedures Name Priority Associated Diagnoses Date/Ti [...] for Moderna series) 08/05/2021 06/10/2021, 08/29/2020, 08/01/2020 GFR - Renal Function 04/24/2023 10/23/2022, 04/25/2022, 03/01/2022, Additional history exists HgA1C 04/24/2023 10/23/2022, 04/07, 11/01/2021, Additional history exists CKD HGB USE SMARTSET 28436 04/25/202304/25, 04/25/2022, 03/01/2022, Additional history exists Albumin/Creatinine Ratio 10/24/2023 023, 07/17/2022, 10/05/2020, Additional history exists CKD PHOS USE SMARTSET 82887 10/24/202310/05, 02/18/2022, 02/17/2022, Additional history exists TSH [...] this encounter Medical Devices Implanted Type Area Sample Hand Device Identifier Shelf Expiration Date Model / Serial / Lot Sut Steel 6 M654g - [id number] Implanted:Qty: 1 on 02/15/2011 at OR 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 No Code Status History Code Status [...] the patient have Health Care Power of First Aid Teacher? No Full Code 02/01/2010 4:02 PM 02/02/2010 4:09 PM This order reflects the patients wishes and were consensually agreed upon. Question Answer Comments Discussion of Advance Directives occurred with: Not Discussed Does the patient have a Living Will? No Does the patient have Health Care Power of First Aid Teacher? No Healthcare Agents on File Name Relationship Healthcare Agent [facility] p Communication Carolyn Ballard Adult Child Health Care Agent Care Teams Occupational Therapy Director Relationship Specialty Start Date End Date Brian Domínguez MD [address] [place] [address] PCP - General Family Medicine 07/16/17 documented as of this encounter
--- OUTSIDE RECORDS SUMMARY | 2023-05-17 12:25 | External Medical Summary ---
Author Name Unknown Address Unknown Organization K0G[facility] [address] [place] [address] Laboratory Report Ordering Provider Test Date Status LETTY UMANZOR 11/18/2022 12:32:29 Final Observation Date Value Abnormality Reference (Units ) Status BUN 11/18/2022 12:32:29 10 6-20 (mg/dL) Final Creatinine 11/18/2022 12:32:29 1.0 0.5-1.0 (mg/dL) Final Glomerular filtration rate/1.73 sq M.predicted [Volume Rate/Area] in Serum, Plasma or Blood by Creatinine-based formula (CKD-EPI) 11/18/2022 12:32:29 63 >=60 (mL/min) Final eGFR is calculated based on the CKD-EPI 2020 equation SODIUM 11/18/2022 12:32:29 127 Below low normal 135 -146 (mmol/L) Final Potassium 11/18/2022 12:32:29 4.2 3.5-5.1 (m mol/L) Final Cl 11/18/2022 12:32:29 89 Below low normal 98- 107 (mmol/L) Final CO2 11/18/2022 12:32:29 25 22-32 (mmo l/L) Final Anion gap 11/18/2022 12:32:29 13 7-15 (mmol /L) Final Glucose 11/18/2022 12:32:29 207 Above high normal 70 -120 (mg/dL) Final Calcium 11/18/2022 12:32:29 9.0 8.4-10.2 ( mg/dL) Final Performing Location [facility] [address] [place] [address]
--- OUTSIDE RECORDS SUMMARY | 2023-05-17 12:25 | External Medical Summary | Summary of Care ---
Author Name Unknown Organization [facility] Address [address] [place] [address] Phone [phone] Care Team Providers Care Poultry Farmer Egg Name Role Phone Brian Domínguez MD Primary Care Provider +1- [phone] Encounter Details Date Type Department Care Team Description 11/18/2022 Orders Only Lab Mobile Phlebotomy [facility] [address] [place] [address] Lashay Blevins PA-C [address] [place] [address] Portal hypertensive gastropathy (HCC)*; Chronic liver disease and cirrhosis (HCC); Hypothyroidism Allergies Active Allergy Reactions Severity Noted Date Comments Propoxyphene Hcl Rash Low 10/29/2010 Fentanyl Diarrhea Low 04/26/2010 anxiety Methocarbamol Medium 10/05/2020 Other reaction(s): Delirium Methocarbamol Low 04/15/2007 Zolpidem Low 10/05/2020 Other reaction(s): Confusion documented as of this encounter (statuses as of 11/18/2022) Medications Medication Sig Dispensed Refills Start Date End Date Status ARIPiprazole (ABILIFY) 2 MG Tablet Take 1 Tablet by mouth in the morning. 0 2015 Active venlafaxine XR (EFFEXOR XR) 150 MG [id number]:Dep ression Take 1 Cap by mouth daily. [...] 0 11/18/2017 Active Blood Glucose Monitoring Suppl (BioCeramic TherapeuticsIO) w/Device KIT Use as directed. Use as directed. 1 Kit 0 10/31/2018 Active Spacer/Aero-Holding Chambers WISAM Use with inhaler. Wheezing/bronchitis . 1 Device 0 04/08/2019 Active Net[employer] DelSeeFuture Lancets 33G MISC USE UP TO FOUR TIMES A DAY Dx:E11.4 100 Each 5 09/30/2019 Active Lancet Devices (Broadcast Grade Weather & Channel Branding Graphics Display SystemUCH DELICA LANCING DEV) MISC Use four times [...] before bedtime. 10.2 g 12 02/18/2022 Active Oxybutynin Chloride ER 10 MG Oral Tablet Extended Release 24 Hour (Ditropan XL) Take by mouth 1 Tablet in the morning. 90 Tablet 3 02/11/2022 Active lamoTRIgine 100 MG Oral Tablet (LaMICtal) [...] 238 g 0 03/19/2022 Active UltiCare Pen [place] 31G X 5 MM (Insulin Pen Needle) [...] Respimat 2.5 MCG/ACT Inhalation Aerosol Solution (Tiotropium [place] Monohydrate) Inhale by mouth 2 Puffs in [...] Oral Tablet (Demadex)Indication s:Atherosclerotic heart disease of [place] coronary artery with other forms of [...] 06/05/2022 Active Vitamin D (Ergocalciferol) 1.25 MG (81060 UT) Oral Capsule (Drisdol)Indication s:Vitamin D deficiency [...] DAILY 60 Capsule 5 08/22/2022 Active Nystatin 094152 UNIT/ML Mouth/Throat Suspension Swish and swallow 5 [...] 10 days.. 20 Capsule 0 11/12/2022 11/23/19 Active Vitamin C 500 MG Oral Tablet (Ascorbic Acid)Indications:Re current UTI TAKE 1 TABLET BY MOUTH TWICE DAILY 60 Tablet 0 11/17/2022 Active Hospital, Clinic, or Other Facility Administered [...] as of this encounter (statuses as of 11/18/2022) Active Problems Problem Noted Date Hypertensive heart and kidne y disease with chronic diastolic congestive heart failure and stage 3a chronic kidney disease 12/28/2021 Last Assessment & Plan: Euvolemic, BP stable EF 55% 09/25 GFR 69 02/25 -Continue Torsemide 20 mg BID, Spironolactone 25 mg BID, Tropol XL 50 mg daily Atherosclerotic heart diseas e of [place] coronary artery with other forms of angina pectoris 11/15/2021 Last Assessment & Plan: Stable. No angina -continue toprol, ASA and statin Seasonal allergies 11/15/2021 Recurrent UTI 10/07/2021 Last Assessment & Plan: Followed by urology Pt is supposed to be on methenamine--will need to clarify with dgt that she is giving this. 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 Anxiety 08/05/2017 Bceiigz-Quiak-Lmlrp disease 06/27/2015 Last Assessment & Plan: Frequent [...] as of this encounter (statuses as of 11/18/2022) Resolved Problems Problem Noted Date Resolved Date [...] 05/06/2018 019 Atherosclerotic heart diseas e of [place] coronary artery with other forms of [...] 10/31/201008/08 Acute coronary syndrome 10/30/2010 01/22/20 14 [place] Research Other*[id number] 02/02/2010 04/18/2014 Overview: [place] [facility], Dr Joel Kwon PI Obesity, morbid [...] rn long term care current use of anticoagulant [...] as of this encounter (statuses as of 11/18/2022) Immunizations Name Administration Dates Next Due COVID-19 [...] Type Specialty Care Team Description 11/22/2022 Telemedicine [facility] [address] [place] [address] 11/25/2022 Imaging Radiology 11/27/2022 Telemedicine [facility] Lashay Blevins PA-C [address] [place] [address] Juliann Landeros, Community Health Water Chaser [address] [place] [address] 12/27/2022 Cardiac Studies Cardiac Studies 01/13/2023 Office Visit Cardiology Sobia Brewster PA-C [address] [place] [address] 01/22/2023 Office Visit Infectious Disease Vidya Fabian MD [address] [place] [address] 04/09/2023 Office Visit Urology Alfredo Panda MD [address] [address] 04/28/2023 Office Visit Family Medicine [facility] [address] [facility] [address] 05/09/2023 Office Visit Gastroenterology Wendy Frias, DO [address] [place] [address] Scheduled Orders Name Type Priority Associated Diagnoses Orde r Schedule BASIC METABOLIC PANEL Lab Routine Chronic liver disease and cirrhosis (HCC) Portal hypertensive gastropathy (HCC) Hypothyroidism Expected: 11/18/2022, Expires: 11/19/2023 CBC WITH WBC DIFFERENTIAL AND ANEMIA REFLEX WORKUP Lab Routine Chronic liver disease and cirrhosis (HCC) Portal hypertensive gastropathy (HCC) Hypothyroidism Expected: 11/18/2022, Expires: 11/19/2023 Scheduled Procedures Name Priority Associated Diagnoses Date/Ti [...] Additional history exists CKD HGB USE SMARTSET 36399 04/25/202304/25, 04/25/2022, 03/01/2022, Additional history exists Albumin/Creatinine Ratio 10/24/2023 023, 07/17/2022, 10/05/2020, Additional history exists CKD PHOS USE SMARTSET 41020 10/24/202310/05, 02/18/2022, 02/17/2022, Additional history exists TSH [...] this encounter Medical Devices Implanted Type Area Roof Tile Layer Device Identifier Shelf Expiration Date Model / Serial / Lot Sut Bob 6 M654g - [id number] Implanted:Qty: 1 on 02/15/2011 at OR [facility] N/A: Chest DO NOT USE 07/21/2015 M654G / / [id number] documented as of this encounter Visit Diagnoses Diagnosis Portal hypertensive gastropathy (HCC)- Primary Other specified disorder of stomach and duodenum Chronic liver disease and cirrhosis (HCC) Unspecified chronic liver disease without mention of alcohol Hypothyroidism Unspecified hypothyroidism documented in this encounter Advance Directives Documents on File Type Date 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 Question Answer Comments Discussion of Advance Directives occurred with: Patient Does the patient have a Living Will? No Does the patient have Health Care Power of Toucher Up? No Code Status History Code Status Date [...] the patient have Health Care Power of Toucher Up? No Full Code 02/01/2010 4:02 PM 02/02/2010 4:09 PM This order reflects the patients wishes and were consensually agreed upon. Question Answer Comments Discussion of Advance Directives occurred with: Not Discussed Does the patient have a Living Will? No Does the patient have Health Care Power of Toucher Up? No Healthcare Agents on File Name Relationship Healthcare Agent [facility] Communication Carolyn Ballard Adult Child Health Care Agent Care Teams Poultry Farmer Egg Relationship Specialty Start Date End Date Brian Domínguez MD [address] [place] [address] PCP - General Family Medicine 07/16/17 documented as of this encounter
--- OUTSIDE RECORDS SUMMARY | 2023-05-17 12:25 | External Medical Summary | Summary of Care ---
Author Name Unknown Organization [facility] Address [address] [place] [address] Phone [phone] Care Team Providers Care Animal Scientist Name Role Phone Brian Domínguez MD Primary Care Provider +1- [phone] Reason for Visit * Reason Onset Date Comments Test Results 11/18/2022 Encounter Details Date Type Department Care Team Description 11/18/2022 Telephone [facility] [place] [address] [place] [address] Lashay Blevins PA-C [address] [place] [address] Test Results Allergies Active Allergy [...] Active venlafaxine XR (EFFEXOR XR) 150 MG [id number]:Dep ression Take 1 Cap by mouth daily. [...] 0 11/18/2017 Active Blood Glucose Monitoring Suppl (Good World GamesIO) w/Device KIT Use as directed. Use as directed. 1 Kit 0 10/31/2018 Active Spacer/Aero-Holding Chambers WISAM Use with inhaler. Wheezing/bronchitis . 1 Device 0 04/08/2019 Active Ensphere Solutionsuch DelGoldSpot Media Lancets 33G MISC USE UP TO FOUR TIMES A DAY Dx:E11.4 100 Each 5 09/30/2019 Active Lancet Devices (ZoomCareTOUCH DELICA LANCING DEV) MISC Use four times [...] 238 g 0 03/19/2022 Active UltiCare Pen [place] 31G X 5 MM (Insulin Pen Needle) [...] Respimat 2.5 MCG/ACT Inhalation Aerosol Solution (Tiotropium [place] Monohydrate) Inhale by mouth 2 Puffs in the morning. 4 g 3 04/25/2022 Active Estradiol 0.1 MG/GM Vaginal Cream Administer into the vagina 1 g in the morning. 42.5 g 12 05/07/2022 Active OneTouch Verio In Vitro Strip (Glucose Blood)Indications:T ype 2 diabetes mellitus with diabetic neuropathy, with long-term current use of insulin ([facility]) USE TO CHECK BLOOD SUGAR THREE TIMES A DAY 300 Strip 1 05/11/2022 Active Torsemide 20 MG Oral Tablet (Demadex)Indication s:Atherosclerotic heart disease of [place] coronary artery with other forms of angina [...] 06/05/2022 Active Vitamin D (Ergocalciferol) 1.25 MG (71245 UT) Oral Capsule (Drisdol)Indication s:Vitamin D deficiency [...] or chew 50 Capsule 0 07/10/2022 Active WISHCLOUDSS Disposable Nebulizer Kit Use as directed 1 [...] DAILY 60 Capsule 5 08/22/2022 Active Nystatin 055625 UNIT/ML Mouth/Throat Suspension Swish and swallow 5 [...] mg daily Atherosclerotic heart diseas e of [place] coronary artery with other forms of angina pectoris 11/15/2021 Last Assessment & Plan: Stable. No angina -continue toprol, ASA and statin Seasonal allergies 11/15/2021 Recurrent UTI 10/07/2021 Last Assessment & Plan: Followed by urology Pt is supposed to be on methenamine--will need to clarify with dgt that she is giving this. 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 Labs were just completed today will follow with results. documented in this encounter Plan of Treatment Upcoming Encounters Date Type Specialty Care Team Description 11/22/2022 [facility]icine [facility] [address] [facility] [address] 11/25/2022 Imaging Radiology 11/27/2022 Telemedicine [facility]ya [facility]levins [facility]-C [address] [facility] [address] Beverly Lozoya, Community Health Conveyor Installer [address] [place] [address] [place] [address] 12/27/2022 Cardiac Studies Cardiac Studies 01/13/2023 Office Visit Cardiology Sobia Brewster PA-C [address] [place] [address] 01/22/2023 Office Visit Infectious Disease Vidya Fabian MD [address] [facility] [place] [address] 04/09/2023 Office Visit Urology Alfredo Panda MD [address] [place] [address] 04/28/2023 Office Visit Family Medicine Brian Domínguez MD [address] [facility] [place] [address] 05/09/2023 Office Visit Gastroenterology Wendy Frias, DO [address] [place] [address] Scheduled Procedures Name Priority Associated Diagnoses Date/Ti [...] Additional history exists CKD HGB USE SMARTSET 94742 04/25/202304/25, 04/25/2022, 03/01/2022, Additional history exists Albumin/Creatinine Ratio 10/24/2023 023, 07/17/2022, 10/05/2020, Additional history exists CKD PHOS USE SMARTSET 32833 10/24/202310/05, 02/18/2022, 02/17/2022, Additional history exists TSH [...] this encounter Medical Devices Implanted Type Area Health Plan Specialist Device Identifier Shelf Expiration Date Model / Serial / Lot Sut Steel 6 M654g - [id number] Implanted:Qty: 1 on 02/15/2011 at OR [facility] N/A: Chest DO NOT USE 07/21/2015 M654G / / [id number] documented as of this encounter Advance Directives Documents on File Type Date Recorded 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 Question Answer Comments Discussion of Advance Directives occurred with: Patient Does the patient have a Living Will? No Does the patient have Health Care Power of Market Research Associate? No Code Status History Code Status [...] the patient have Health Care Power of Market Research Associate? No Full Code 02/01/2010 4:02 PM 02/02/2010 4:09 PM This order reflects the patients wishes and were consensually agreed upon. Question Answer Comments Discussion of Advance Directives occurred with: Not Discussed Does the patient have a Living Will? No Does the patient have Health Care Power of Market Research Associate? No Healthcare Agents on File Name Relationship [facility] Communication Carolyn Ballard Adult Child Health Care Agent Care Teams Animal Scientist Relationship Specialty Start Date End Date Brian Domínguez MD [address] [place] [address] PCP - General Family Medicine 07/16/17 documented as of this encounter
--- OUTSIDE RECORDS SUMMARY | 2023-05-17 12:25 | External Medical Summary | Summary of Care ---
Author Name Unknown Organization [facility] Address [address] [place] [address] Phone [phone] Care Team Providers Care Hair Spring Cutter Name Role Phone Brian Domínguez MD Primary Care Provider [phone] Reason for Referral * Ancillary Services (Within 3 days (urgent)) - Authorized Specialty Diagnoses / Procedures Referred By Mitchell chavez Referred To Contact Network Security Analyst Diagnoses Recurrent UTI Productive cough Generalized weakness Lashay Blevins PA-C [address] [place] [address] Referral ID Status Reason Start Date Expiration Date Visits Requested Visits Authorized [id number] Authorized Ancillary Services Required 11/13/[phone] Question Answer Referral Priority Within [...] on the next service day for the [facility] Home Phlebotomy does not service every geographical location on a daily basis. Contact [facility] Client Services at to find out service days for a specific location. Medical Laboratory [address] [place] [id number] Brady Ambrosio M.D. Director and Residential Counselor Patient Name: Angelina Ballard : 1950 Sex: female Address [address] [place] [address] [facility] [address] Provider: Self? Brian Domínguez MD? Diagnosis: I13.0,I50.32,N18.31 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) (primary encounter diagnosis) E11.40,Z79.4 Type 2 diabetes mellitus with diabetic neuropathy, with long-term current use of insulin (HCC) N39.0 Recurrent UTI R05.8 Productive cough Tests Requested Cbc, bmp Reason for Visit * Reason Comments [facility]: Telehealth Encounter Details Date Type Department Care Team Description 11/13/2022 Telemedicine [facility], [place] [address] [place] [address] Lashay Blevins PA-C [address] [place] [address] Juliann Landeros, [facility] Hearing Aid Repairer [address] [place] [address] 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)*; Type 2 diabetes mellitus with diabetic neuropathy, with long-term current use of insulin ([facility]); Recurrent UTI; Productive cough; Generalized weakness Allergies Active Allergy Reactions Severity Noted Date Comments Propoxyphene Hcl Rash Low 10/29/2010 Fentanyl Diarrhea Low 04/26/2010 anxiety Methocarbamol Medium 10/05/2020 Other reaction(s): Delirium Methocarbamol Low 04/15/2007 Zolpidem Low 10/05/2020 Other reaction(s): Confusion documented as of this encounter (statuses as of 11/14/2022) Medications Medication Sig Dispensed Refills Start Date End Date Status ARIPiprazole (ABILIFY) 2 MG Tablet Take 1 Tablet by mouth in the morning. 0 2015 Active venlafaxine XR (EFFEXOR XR) 150 MG [id number]:Dep ression Take 1 Cap by mouth daily. [...] 0 11/18/2017 Active Blood Glucose Monitoring Suppl (fabrikIO) w/Device KIT Use as directed. Use as directed. 1 Kit 0 10/31/2018 Active Spacer/Aero-Holding Chambers WIASM Use with inhaler. Wheezing/bronchitis . 1 Device 0 04/08/2019 Active Existence Before Essence Lancets 33G MISC USE UP TO FOUR TIMES A DAY Dx:E11.4 100 Each 5 09/30/2019 Active Lancet Devices (DGITTOUCH DELICA LANCING DEV) MISC Use four times [...] 238 g 0 03/19/2022 Active UltiCare Pen [place] 31G X 5 MM (Insulin Pen Needle) USE ONE NEEDLE TWICE DAILY 200 Each 3 04/03/2022 Active Insulin Glargine Solostar 100 UNIT/ML Subcutaneous Solution Pen-injector (Basaglar KwikPen)Indications :Type 2 diabetes mellitus with diabetic neuropathy, with long-term current use of insulin ([facility]) Inject 30 units under the skin twice daily 45 mL 3 04/16/2022 Active Insulin Glargine Solostar 100 UNIT/ML Subcutaneous Solution Pen-injector (Basaglar KwikPen)Indications :Type 2 diabetes mellitus with diabetic neuropathy, with long-term current use of insulin ([facility]) Inject 30 units under the skin twice [...] Respimat 2.5 MCG/ACT Inhalation Aerosol Solution (Tiotropium [place] Monohydrate) Inhale by mouth 2 Puffs in [...] Oral Tablet (Demadex)Indication s: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 30 Tablet 5 09/26/2022 Active Vitamin C 500 MG Oral Tablet (Ascorbic Acid)Indications:Re current UTI TAKE 1 TABLET BY MOUTH TWICE DAILY 60 Tablet 0 10/23/2022 Active Famotidine 40 MG Oral Tablet (Pepcid)Indications [...] days.. 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 No angina -continue toprol, ASA and statin Seasonal allergies 11/15/2021 Recurrent UTI 10/07/2021 Last Assessment & Plan: Followed by urology Pt is supposed to be on methenamine--will need to clarify with dgt that she is giving this. 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 [...] 10/31/201008/08 Acute coronary syndrome 10/30/2010 01/22/20 14 [place] Research Other*[id number] 02/02/2010 04/18/2014 Overview: [place] [facility], Dr Joel Kwon PI Obesity, morbid [...] as of this encounter (statuses as of 11/14/2022) Immunizations Name Administration Dates Next Due COVID-19 [...] Sign Reading Time Taken Comments Blood Pressure 110/50 11/13/2022 12:17 PM EDT Pulse 76 11/13/2022 12:17 PM EDT Temperature 36.1 C (96.9 F) 11/13/2022 12:17 PM E DT Respiratory Rate 18 11/13/2022 12:17 PM EDT Oxygen Saturation 96% 11/13/2022 12:17 PM EDT Inhaled Oxygen Concentration - - Weight - - Height - - Body Mass Index - - documented in this encounter Progress Notes * Juliann Landeros, [facility] Health Hearing Aid Repairer - 11/13/2022 12:23 PM EDT [facility] Hearing Aid Repairer Visit Date: 11/13/2022 Time: 12:00 PM Name: Angelina Ballard : 1950 Referral Source: Provider Source of Information: Patient Spoken language: Irish Patient can read in Irish: Yes. Loft Rigger needed: No. COVID-19 screening completed: Yes Vitals: Vital signs completed: Yes, abnormal values, escalated to nurse/provider: .Provider tele health BP 110/50 (BP Site: Right Arm, BP Position: Sitting) | Pulse 76 | Temp 36.1 C (96.9 F) | Resp 18 | SpO2 96% Condition Changes: Changes in health or social status since last visit: No feeling well She is sleeping a lot.Has a cough wet with mucus yellow /green Trying to drink Urin is dark in color Little more SOD at times feeling like she can not get a deep breath . Heart feeling of palpations Feeling weak swelling BL legs more in the left The patient has new concerns since last visit: Yes, wanting to feel better Patient's Goals of Care: 1. No more uti's 2. No falls 3. No hospitalizations Progress towards goals since last visit: She is home Medications: Medication review completed? No, . Does the patient have barriers to medication adherence? No. Patient reports difficulty paying for medications or might in the future: No. Telehealth: This is a telehealth visit: Yes. Type of telehealth visit: Return/Routine Visit conducted with: Physician/AP Symptoms Surveys and Evaluations: MA[facility]10 completed this visit: Yes. Score is 4 or more? Yes, notified Provider/Yacht Master Last flowsheet values for [facility]: Age 65+: 1 (11/13/2022 12:00 PM) Diagnosis (3 or more co-existing): 1 (11/13/2022 12:00 PM) Prior history of falls within 3 months: 0 (11/13/2022 12:00 PM) Incontinence: 1 (11/13/2022 12:00 PM) Visual impairment: 0 (11/13/2022 12:00 PM) Impaired functional mobility: 1 (11/13/2022 12:00 PM) Environmental hazards: 1 (11/13/2022 12:00 PM) Poly Pharmacy (4 or more prescriptions - any type): 1 (11/13/2022 12:00 PM) Pain affecting level of function: 0 (11/13/2022 12:00 PM) Cognitive impairment: 0 (11/13/2022 12:00 PM) Score - a score of 4 or more is considered at risk for fallin (11/13/2022 12:00 PM) Plan: Reinforced patient's three red flags by the care team Treatment/Plan: Continue all meds as prescribed Low Na, CCD diet Elevate LE as much as possible Walker at all times Ck bsg bid and record SW working with pt for support/end of life planning F/U with Urology for chronic dysuria Dry wt 226 lbs as of 02/05/21 RAGHU Chest pain-Morphine, oxycodone prn, heating pad, Voltaren gel prn Patient's 'Red Flags': 1. Fever 2. Increased sob 3. Increased edema or abd distention Follow Up: Patient encouraged to call the intake phone number for all urgent but not emergent issues. Scheduled to follow up with patient as needed Juliann Landeros [facility] Health Hearing Aid Repairer 11/13/2022 12:00 PM Electronically signed by Juliann Landeros [facility] Health Hearing Aid Repairer at 11/14/2022 11:51 AM EDT * Lashay Johnston PA-C - 11/13/2022 12:00 PM EDT [facility] Provider Telemedicine Visit Date: 11/13/2022 Time: 12:10 PM Assessment/Plan: 1. 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) 2. Type 2 diabetes mellitus with diabetic neuropathy, with long-term current use of insulin (HCC) 3. Recurrent UTI Culture in process - CBC WITH WBC DIFFERENTIAL AND ANEMIA REFLEX WORKUP; Future - BASIC METABOLIC PANEL; Future - HOME PHLEBOTOMY REFERRAL OP 4. Productive cough - XR CHEST 2 VIEWS - CBC WITH WBC DIFFERENTIAL AND ANEMIA REFLEX WORKUP; Future - BASIC METABOLIC PANEL; Future - HOME PHLEBOTOMY REFERRAL OP 5. Generalized weakness - CBC WITH WBC DIFFERENTIAL AND ANEMIA REFLEX WORKUP; Future - BASIC METABOLIC PANEL; Future - HOME PHLEBOTOMY REFERRAL OP Follow up plan: Urine culture is pending. UA shows large esterase and 6-9 WBC. She started taking Cefdinir yesterday. She has had a chronic cough and has followed with Pulmonology. Sputum changes to yellow/green color over the last week. Will order CXR to rule out pneumonia. She is notably swollen today but dehydrated. Advised to hydrate today and when she feels improved take a couple days of increased Torsemide. A total of 25 minutes was spent face to face via video-based telemedicine. Subjective Patient location: HOME. I was not in a hospital or clinic location. After connecting through televideo, patient was verified with two unique identifiers. Patient (or authorized legal insurance claim representative) was then informed that this was a Telemedicine visit and being conducted confidentially over secure lines. Methods to assure confidentiality were taken. Patient acknowledged consent and understanding of privacy and security of the Telemedicine visit. The patient agreed to participate. Reason for Visit: Follow-Up Current Concerns: Angelina Ballard is a 72 year old female seen today for a [facility] Telemedicine Provider Visit. Date of last known acute care visit: 10/29/22 saw GI Reason for last known acute care visit: [...] She has had recurrent symptoms of chest congestion and cough. She hasbeen treated with steroids and antibiotics multiple times. She recently saw Pulmonology. PFT's and walking test was not suggestive of chronic lung disease. I spoke with her daughter yesterday and there was concern for UTI. She also had been expectorating green sputum. I sent a Rx for Cefdinir yesterday. Today's concerns are: Patient states she has not been feeling well for the last week. She has had dysuria and feels like she has a UTI. She has also had increased cough with green/yellow sputum color. She feels more SOB and has had some palpitations. She feels very tired and just wants to sleep all day. Her daughter hasnoted that she is holding onto more fluid in the LE's. She is taking daily Torsemide and Spironolactone. Her daughter will give her an additional dose of Torsemide when needed but she has been dehydrated and not drinking much fluid. She had vomiting and loose bowels yesterday. She is using Zofran for nausea. Today she feels mild improvement and is tolerating liquids and has had no vomiting. No fever/chills. Recent EGD was performed and showed gastroparesis. No dark or bloody stools reported. BGhas been running higher between 160-180's. ROS: See HPI Objective Physical Exam: BP 110/50 (BP Site: Right Arm, BP Position: Sitting) | Pulse 76 | Temp 36.1 C (96.9 F) | Resp 18 | SpO2 96% Previous Wts: Wt Readings from Last 5 Encounters: 10/29/22 115.7 kg (255 lb) 10/23/22 114.3 kg (252 lb) 10/23/22 115.7 kg (255 lb) 09/19/22 115.7 kg (255 lb) 09/18/22 116 kg (255 lb 12 oz) Previous BPs: BP Readings from Last 5 Encounters: 11/13/22 110/50 10/29/22 126/62 10/25/22 125/57 10/23/22 132/72 09/19/22 133/67 Physical Exam Constitutional: General: She is not in acute distress. HENT: Head: Normocephalic and atraumatic. Eyes: Extraocular Movements: Extraocular movements intact. Conjunctiva/sclera: Conjunctivae normal. Cardiovascular: Rate and Rhythm: Normal rate and regular rhythm. Heart sounds: Murmur heard. Pulmonary: Effort: Pulmonary effort is normal. No respiratory distress. Breath sounds: Normal breath sounds. Abdominal: General: Bowel sounds are normal. Musculoskeletal: Comments: Pitting edema noted to the LLE extending up to mid shaft tibia. Neurological: Mental Status: She is alert. Chronic Condition Review: Diagnostic Data Review: Hematology Lab Results Component Value Date/Time WBC AUTO - [facility] 5.58 04/25/2022 04:45 PM WBC AUTO - [facility] 3.71 (L) 03/01/2022 07:53 AM WBC AUTO - [facility] 5.59 02/22/2022 05:50 AM WBC AUTO - [facility] 4.80 12/14/2019 01:10 PM WBC AUTO - [facility] 6.35 11/16/2019 01:45 PM WBC AUTO - [facility] 4.84 07/08/2019 12:51 PM Lab Results Component Value Date/Time HGB - [facility] 10.7 (L) 04/25/2022 04:45 PM HGB - [facility] 7.9 (L) 03/01/2022 07:53 AM HGB - [facility] 8.5 (L) 02/22/2022 05:50 AM HGB - [facility] 10.7 (L) 12/14/2019 01:10 PM HGB - [facility] 11.6 (L) 11/16/2019 01:45 PM HGB - [facility] 9.9 (L) 07/08/2019 12:51 PM Lab Results Component Value Date/Time HCT - [facility] 35.9 (L) 04/25/2022 04:45 PM HCT - [facility] 25.6 (L) 03/01/2022 07:53 AM HCT - [facility] 27.6 (L) 02/22/2022 05:50 AM HCT - [facility] 35.4 (L) 12/14/2019 01:10 PM HCT - [facility] 36.7 11/16/2019 01:45 PM HCT - [facility] 32.6 (L) 07/08/2019 12:51 PM Lab Results Component Value Date/Time PLATELET AUTO - [facility] 150 04/25/2022 04:45 PM PLATELET AUTO - [facility] 169 03/01/2022 07:53 AM PLATELET AUTO - [facility] 258 02/22/2022 05:50 AM PLATELET AUTO - [facility] 132 (L) 12/14/2019 01:10 PM PLATELET AUTO - [facility] 135 (L) 11/16/2019 01:45 PM PLATELET AUTO - [facility] 127 (L) 07/08/2019 12:51 PM Lab Results Component Value Date/Time IRON - [facility] 37 04/25/2022 04:45 PM IRON - [facility] 46 04/20/2018 03:04 PM Lab Results Component Value Date/Time TRANSFERRIN SATURATION PERCENT - [facility] 12 (L) 04/25/2022 04:45 PM TRANSFERRIN SATURATION PERCENT - [facility] 12 (L) 04/20/2018 03:04 PM No results found for: TRANSFERRIN - [facility] Lab Results Component Value Date/Time VITAMIN B12 - [facility] 540 02/13/2021 12:32 PM VITAMIN B12 - [facility] 363 05/22/2020 01:24 PM Chemistry/Renal Lab Results Component Value Date/Time SODIUM - [facility] 131 (L) 10/23/2022 10:46 AM SODIUM - [facility] 135 04/25/2022 04:45 PM SODIUM - [facility] 133 (L) 07/18/2020 12:20 PM SODIUM - [facility] 129 (L) 05/22/2020 01:24 PM Lab Results Component Value Date/Time POTASSIUM - [facility] 4.4 10/23/2022 10:46 AM POTASSIUM - [facility] 4.3 04/25/2022 04:45 PM POTASSIUM - [facility] 4.6 07/18/2020 12:20 [...] Results Component Value Date/Time BUN - [facility] 9 10/23/2022 10:46 AM BUN - [facility] 11 04/25/2022 04:45 PM BUN - [facility] 10 03/01/2022 07:53 AM BUN - [facility] 8 07/18/2020 12:20 PM BUN - [facility] 8 05/22/2020 01:24 PM BUN - [facility] 9 12/14/2019 01:10 PM Lab Results Component Value Date/Time CREATININE - [facility] 1.1 (H) 10/23/2022 10:46 AM CREATININE - [facility] 0.9 04/25/2022 04:45 PM CREATININE - [facility] 0.9 03/01/2022 07:53 AM CREATININE - [facility] 1.0 07/18/2020 12:20 PM CREATININE - [facility] 0.9 05/22/2020 01:24 PM CREATININE - [facility] 0.8 12/14/2019 01:10 PM Lab Results Component Value Date/Time ESTIMATED GLOMERULAR FILTRATION RATE - [facility] 55 (L) 10/23/2022 10:46 AM ESTIMATED GLOMERULAR FILTRATION RATE - [facility] 68 04/25/2022 04:45 PM ESTIMATED GLOMERULAR FILTRATION RATE - [facility] 69 03/01/2022 07:53 AM ESTIMATED GLOMERULAR FILTRATION RATE - [facility] [...] 1 Kit 0 Blood Glucose Monitoring Suppl (Webupo) w/Device KIT Use as directed. Use as directed. 1 Kit 0 Spacer/Aero-Holding Chambers WISAM Use with inhaler. Wheezing/bronchitis. 1 Device 0 Existence Before Essence Lancets 33G MISC USE UP TO FOUR TIMES A DAY Dx:E11.4 100 Each 5 Lancet Devices ([employer] LANCING DEV) MISC Use four times a [...] 2 Puffs before bedtime. 10.2 g 12 Oxybutynin Chloride ER 10 MG Oral Tablet Extended Release 24 Hour (Ditropan XL) Take by mouth 1Tablet in the morning. 90 Tablet 3 lamoTRIgine 100 MG Oral Tablet (LaMICtal) Take [...] PROCEDURE DIRECTED 238 g 0 UltiCare Pen [place] 31G X 5 MM (Insulin Pen Needle) [...] Respimat 2.5 MCG/ACT Inhalation Aerosol Solution (Tiotropium [place] Monohydrate) Inhale by mouth 2 Puffs in [...] g 3 Vitamin D (Ergocalciferol) 1.25 MG (24129 UT) Oral Capsule (Drisdol) TAKE ONE CAPSULE [...] MOUTH TWICE DAILY 60 Capsule 5 Nystatin 989236 UNIT/ML Mouth/Throat Suspension Swish and swallow 5 [...] 1 Tablet before bedtime. 60 Tablet 3 Fosfomycin Tromethamine 3 GM Oral Packet (Monurol) Take 3 g by mouth every 3 days. 1 Packet 0 lamoTRIgine 25 MG Oral Tablet (LaMICtal) Take [...] mouth daily with dinner. 30 Tablet 5 Vitamin C 500 MG Oral Tablet (Ascorbic Acid) TAKE 1 TABLET BY MOUTH TWICE DAILY 60 Tablet 0 Famotidine 40 MG Oral Tablet (Pepcid) Take [...] a day, as directed 18 g 3 Cefdinir 300 MG Oral Capsule (Omnicef) Take 1 Capsule by mouth in the morning and 1 Capsule before bedtime. Do all this for 10 days. For 10 days.. 20 Capsule 0 Current Facility-Administered Medications Medication Dose Route [...] No SDoH: DME (Durable Medical Equipment) needs [employer]umber [employer] Services / Assistance with ADLs and Self-Care Routine Transportation Urgent Transportation Social Isolation Behavioral Health needs Lashay Johnston PA-C 12:10 PM *Communication sent to PCP (via [employer] if [facility]), Population Health Care Team members, relevant Specialty Care Physicians* documented in this encounter Plan of Treatment Upcoming Encounters Date Type Specialty Care Team Description 11/15/2022 Office Visit Family Medicine Brian Domínguez MD [address] [place] [address] 11/18/2022 Laboratory Laboratory Processing [facility] Mobile Home Draw [address] [place] [address] 11/22/2022 Telemedicine [facility] [address] [place] [address] 11/25/2022 Imaging Radiology 11/27/2022 Telemedicine [facility] Lashay Blevins PA-C [address] [place] [address] Juliann Landeros, [facility] Hearing Aid Repairer [address] [place] [address] 12/27/2022 Cardiac Studies Cardiac Studies 01/13/2023 Office Visit Cardiology Sobia Brewster PA-C [address] [place] [address] 01/22/2023 Office Visit Infectious Disease Vidya Fabian MD [address] [place] [address] 04/09/2023 Office Visit Urology Alfredo Panda MD [address] [facility] [address] [place] [id number] 05/09/2023 Office Visit Gastroenterology Wendy Frias DO [address] [place] [address] Scheduled Orders Name Type Priority Associated Diagnoses Orde r Schedule XR CHEST 2 VIEWS Medical Imaging STAT Productive cough Ordered: 11/13/2022 CBC WITH WBC DIFFERENTIAL AND ANEMIA REFLEX WORKUP Lab Routine Recurrent UTI Productive cough Generalized weakness Expected: 11/13/2022 (Approximate), Expires: 11/14/2023 BASIC METABOLIC PANEL Lab Routine Recurrent UTI Productive cough Generalized weakness Expected: 11/13/2022 (Approximate), Expires: 11/13/2023 Scheduled Procedures Name Priority Associated Diagnoses Date/Ti me COLONOSCOPY FLEXIBLE PROXIMA L DIAGNOSTIC Recall Special screening for malignant neoplasms, colon Scheduled Referrals Name Type Priority Associated Diagnoses Orde r Schedule HOME PHLEBOTOMY REFERRAL OP Referral Within 3 days (urgent) Recurrent UTI Productive cough Generalized weakness Ordered: 11/13/2022 Health Maintenance Due Date Last Done Comments [...] Additional history exists CKD HGB USE SMARTSET 62378 04/25/202304/25, 04/25/2022, 03/01/2022, Additional history exists Albumin/Creatinine Ratio 10/24/2023 023, 07/17/2022, 10/05/2020, Additional history exists CKD PHOS USE SMARTSET 77117 10/24/202310/05, 02/18/2022, 02/17/2022, Additional history exists TSH [...] this encounter Medical Devices Implanted Type Area Ms Access Database Developer Device Identifier Shelf Expiration Date Model / Serial / Lot Sut Steel 6 [id number] - [id number] Implanted:Qty: 1 on 02/15/2011 at [place] [facility] [place]/A: Chest DO NOT USE 07/21/2015 [id number] / / [id number] documented as of this encounter Visit Diagnoses Diagnosis 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)- Primary Type 2 diabetes mellitus with diabetic neuropathy, with long-term current use of insulin (HCC) Recurrent UTI Urinary tract infection, site not specified Productive cough Cough Generalized weakness Other malaise and fatigue documented in this encounter Advance Directives Documents on File Type Date Recorded 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 Question Answer Comments Discussion of Advance Directives occurred with: Patient Does the patient have a Living Will? No Does the patient have Health Care Power of Substitute Crossing Guard? No Code Status History Code Status Date [...] the patient have Health Care Power of Substitute Crossing Guard? No Full Code 02/01/2010 4:02 PM 02/02/2010 4:09 PM This order reflects the patients wishes and were consensually agreed upon. Question Answer Comments Discussion of Advance Directives occurred with: Not Discussed Does the patient have a Living Will? No Does the patient have Health Care Power of Substitute Crossing Guard? No Healthcare Agents on File Name Relationship Healthcare Agent [facility] Communication Carolyn Elio Adult Child Health Care Agent Care Teams Hair Spring Cutter Relationship Specialty Start Date End Date Brian Domínguez MD [address] [place] [address] PCP - General Family Medicine 07/16/17 documented as of this encounter"
== END 2023-05-15 14:45 | disposition home health service (06) | DRG 698 ==
LOC: ED 16:11 → SUATTDRO 19:50 → EDINP 19:50 → 2N 05-13 17:31
DX: Y92.89 Other specified places as the place of occurrence of the external cause; Y74.2 Prosthetic and other implants, materials and accessory general hospital and personal-use devices associated with adverse incidents; Z96.642 Presence of left artificial hip joint; S72.92XD Unspecified fracture of left femur, subsequent encounter for closed fracture with routine healing; G89.4 Chronic pain syndrome; G93.41 Metabolic encephalopathy; Z95.5 Presence of coronary angioplasty implant and graft; X58.XXXD Exposure to other specified factors, subsequent encounter; F32.A Depression, unspecified; Z86.74 Personal history of sudden cardiac arrest; N17.9 Acute kidney failure, unspecified; F41.9 Anxiety disorder, unspecified; N39.0 Urinary tract infection, site not specified; E03.9 Hypothyroidism, unspecified; Z95.1 Presence of aortocoronary bypass graft; I45.10 Unspecified right bundle-branch block; I25.10 Atherosclerotic heart disease of native coronary artery without angina pectoris; Z79.85 Long-term (current) use of injectable non-insulin antidiabetic drugs; E78.5 Hyperlipidemia, unspecified; E87.1 Hypo-osmolality and hyponatremia; I12.9 Hypertensive chronic kidney disease with stage 1 through stage 4 chronic kidney disease, or unspecified chronic kidney disease; N18.31 Chronic kidney disease, stage 3a; Z86.16 Personal history of COVID-19; T83.511A Infection and inflammatory reaction due to indwelling urethral catheter, initial encounter; Z87.440 Personal history of urinary (tract) infections; E11.43 Type 2 diabetes mellitus with diabetic autonomic (poly)neuropathy; Z95.828 Presence of other vascular implants and grafts

== ENCOUNTER 2024-03-02 16:09 | Inpatient (IN) ==
[2024-03-02] MEDS: SODIUM CHLORIDE 0.9% 500 ML IV SCH (16:25)
[2024-03-02] MEDS: ADENOSINE IV SOLN 3 MG/ML 2 ML VIAL IV ONE (16:28)
[2024-03-02] MEDS: METOPROLOL TARTRATE 1 MG/ML VIAL IV ONE ×2 (16:30→17:06)
--- NOTE | 2024-03-02 16:41 | Emergency Department Note ---
Impression & Plan SVT (supraventricular tachycardia), Acute UTI, Elevated troponin, Acute dehydration, Hyponatremia, Hypomagnesemia ED Provider Note NAME: GILES SLOAN AGE: 73 SEX: F : 1950 ARRIVES VIA: Walk-In INFORMANT: [Patient] ED PROVIDER(S): [Berto Magaña MD] CHIEF COMPLAINT: Tachycardia HISTORY OF PRESENT ILLNESS: The patient is a 73-year-old female who has had 2 weeks of symptoms. She has had some fast heart rate at times, she has been weak and tired, she has had a cough, sore throat and a bit of a stuffy nose. She initially had a fever but this resolved. She noticed some ear pain. The patient went to her doctor's office today. She was found to be quite tachycardic. She was referred to the ER. The patient does not have a history of SVT but states she has had cardiac issues previously. As per family, the patient's urine has been cloudy and darker in color, there has been sediment in the bag. PMHx/PSHx/Social Hx: See Below PHYSICAL EXAM: GENERAL: Patient is in no acute distress. HEENT: No acute trauma, normocephalic atraumatic, mucous membranes dry, no nasal congestion. NECK: No stridor, no adenopathy, no meningismus, trachea is midline. LUNGS: Clear to auscultation bilaterally when listening anterior, no wheeze, no rhonchi, breath sounds equal. HEART: Regular rhythm, quite tachycardic, no murmurs. ABDOMEN: Soft, nontender, no peritonitis. Suprapubic catheter noted. EXTREMITIES: No cyanosis, full range of motion of all the joints without pain or difficulty. NEUROLOGIC: Oriented x 3, no acute motor or sensory deficits, no focal weakness. SKIN: No jaundice, no diaphoresis. DIFFERENTIAL DIAGNOSIS: SVT, A-fib or a flutter, viral illness, dehydration, electrolyte imbalance, MO, UTI, among others. EMERGENCY DEPARTMENT PROCEDURES: Chemical cardioversion: This procedure was performed by me. Patient was administered 6 mg of IV adenosine followed by a rapid saline flush. This did convert the SVT to sinus rhythm. No complications with the procedure. MEDICAL DECISION MAKING: There is no leukocytosis or concerning anemia. There is a normal platelet count. Sodium was low, the patient carries a history of hyponatremia but today's value is below her typical baseline. There was no renal failure. Lactic acid level was not elevated making severe sepsis less likely. Magnesium was low at 1.6. No concerning liver enzyme elevation. The patient appeared to be in a euthyroid state. ECG showed what appeared to be SVT. Cardiac enzyme testing x 1 was somewhat elevated, this elevation could be secondary to cardiac injury or just mismatch from her tachycardia. Urinalysis does show findings of infection. Respiratory bio fire was negative. Chest x-ray did not show pneumonia or CHF. The patient presented quite tachycardic. I did try some vagal maneuvers however, these were unsuccessful. The patient was given 6 mg of IV adenosine followed by a rapid saline flush. This did convert the SVT to a sinus rhythm. The patient tolerated the procedure well. Patient received a liter of IV saline for hydration. She received IV magnesium for the lower magnesium value. She was eventually given a total of 5 mg of Lopressor IV. She received IV cefepime as antibiotic coverage. The SVT did return, however, with IV fluids and the IV Lopressor, the SVT resolved. No additional adenosine was required. Given the UTI, given the dehydration, given the SVT and mild troponin elevation, I do think a hospital stay is warranted. I spoke with the patient and case management. The on-call hospitalist was consulted. Prior/Outside records/notes reviewed: None ECG per my interpretation: Indication was tachycardia. The ECG shows what looks to be SVT with a rate of 159. There is no concerning ST elevation. There is a potential old anterior lateral infarct. No PVCs. QTc was 474. Continuous Cardiac Monitoring per my interpretation: An order was placed for continuous cardiac monitoring. The monitor shows a rate of 164 with SVT. Imaging/x-ray results per my interpretation: Chest x-ray does not show mediastinal widening, pneumonia or CHF. Chronic Medical/Social conditions affecting care: Advanced age. Care/Management discussed with: Case management, the on-call hospitalist. Level of care consideration(s): After review of the information above and other included data: --I believe the patient requires escalation of care to admission Critical Care Note: I have personally spent 42 minutes of critical care time in the direct management of this patient. This includes bedside care, interpretation of diagnostic studies, and testing, discussion with consultants, patient, and family members, and other required patient management activities. This 42 minutes is in excess of all separately billable procedures. DISPOSITION: Admission Past Med/Surg History Problem List (Updated 03/02/24 @ 22:26 by Berto Magaña MD) Hypomagnesemia (Acute) Hyponatremia (Acute) Acute dehydration (Acute) Elevated troponin (Acute) Acute UTI (Acute) SVT (supraventricular tachycardia) (Acute) Acute UTI (urinary tract infection) SVT (supraventricular tachycardia) Non-ST elevation MO (NSTEMI) (Acute) Acute confusion (Acute) Fracture of femur, distal, left, closed Encephalopathy (Acute) Non-ST elevation MO (NSTEMI) (Acute) Acute hyponatremia (Acute) Hypocalcemia (Acute) Postoperative anemia Sepsis associated hypotension Edema leg Chronic heart failure with preserved ejection fraction CAD (coronary artery disease), [place] coronary artery Preop cardiovascular exam Abdominal distension Femoral distal fracture (Acute) Fall (Acute) Abnormal ankle brachial index Diabetic foot ulcer DVT prophylaxis UTI (urinary tract infection) (Acute) Failure of outpatient treatment (Acute) Flank pain (Acute) Urinary tract infection due to ESBL Klebsiella Hyponatremia Encounter for pre-operative examination Pyelonephritis (Acute) Acute UTI (Acute) Weakness (Acute) Pneumonia (Acute) Confusion (Acute) Encounter for rehabilitation evaluation Fever Cough CAP (community acquired pneumonia) Elevated troponin Hypomagnesemia Sepsis (Acute) Pneumonia (Acute) Fever (Acute) Hypoxia (Acute) Cirrhosis of liver not due to alcohol Demand ischemia Unstable angina Chest pain (Acute) Blood glucose elevated (Acute) Discharge planning issues Altered mental status Fall (Acute) CHI (closed head injury) (Acute) Weakness (Acute) Abdominal pain (Acute) Candidal UTI (urinary tract infection) H/O urinary retention COVID-19 (Acute) Fall (Acute) Ambulatory dysfunction Recurrent falls Ambulatory dysfunction (Acute) 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 (Acute) Closed hip fracture (Acute) Hip fracture, left S/P hip hemiarthroplasty Acute on chronic diastolic heart failure with preserved ejection fraction Infection due to ESBL-producing Escherichia coli Acute blood loss anemia Elevated troponin (Acute) Encephalopathy Left hip pain Left hip hemiarthroplasty 02/05/2022 Chronic low back pain Encephalopathy (Acute) d/c from [facility] 09/20/19 (hepatic encephalopathy) Chronic pain syndrome S/P CABG x 1 (Chronic) 2010 - single vessel S/P CARLOS (total abdominal hysterectomy) (Chronic) Hx of cholecystectomy (Chronic) History of back surgery (Chronic) sacral area History of appendectomy (Chronic) History of total right knee replacement (Chronic) Anxiety (Chronic) Bipolar disorder (Chronic) Txiueuc-Ckugt-Qhwmi disease (Chronic) follows w/ Dr. Lemus LEG WEAKNESS CURRENT PT/OT FOR - BRACES B/L LEGS Gastroparesis (Chronic) Portal hypertensive gastropathy (Chronic) GONZALEZ (nonalcoholic steatohepatitis) (Chronic) Moderate aortic stenosis (Chronic) Chronic diastolic CHF (congestive heart failure) (Chronic) Hypertension (Chronic) CAD (coronary artery disease) (Chronic) History of multiple PCI's to the RCA with subsequent CABG x1 in 2010 x 1 vessel Most recent cardiac testing-negative DSE in December 2017 Follows w/ Dr. Blackwell and Dr. Lucas DM type 2 (diabetes mellitus, type 2) (Chronic) IDDM Hypothyroidism (Chronic) Dyslipidemia (Chronic) Medical History Cardiac arrest pt states she was told she went into cardiac arrest during her hip surgery in 02/[address] [facility] and was "revived". no other details were given. Palpitations occasionally -- pt states since her metoprolol has been decreased. Cough started about 8 months ago s/p covid-19 virus -- currently treating with augmentin PO bid and prednisone. prednisone to end 05/27/22 and abx to finish on 06/01/22 Hx of fall pt. fell in the bathroom at home, pt. wasn't aware of what happen but was told this by her family 02/05/2022 History of anesthesia reaction REMOTE HX, SIDE EFFECTS : ANXIETY AND SEVERE N/V History of COVID-19 may or june 2021, has cough since. SOB (shortness of breath) SINCE COVID 6-8 MON AGO, SOB, COUGH...NO DX...HAS VISIT WITH PULM UPCOMING TO EVALUATE Urinary incontinence UTI (urinary tract infection) FREQUENT/PREVENTATIVE ABX'S CURRENTLY MOST RECENT UTI JANUARY 04 - ABX COMPLETE - ON CURRENT PROPHYLACTIC TX Irregular heart beat follows Dr. 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 Lucas History of cardiac cath multiple - most recent - 2 years ago @ [place] - FOR CP S/P CABG x 1 2010 - single vessel S/P CARLOS (total abdominal hysterectomy) Hx of cholecystectomy History of back surgery sacral area History of appendectomy History of total right knee replacement Family History Father Coronary heart disease Brother Coronary heart disease Father No problems noted. Mother No problems noted. Other No family history of adverse response to anesthesia Social History Smoking Status: Never smoker Tobacco Type: Cigarettes Second Hand Exposure: Yes; Do You Dip or Chew Tobacco: No; Hx Alcohol Use: No Hx Substance Use: No Preferred Language: Azerbaijani Communication Ability: Impaired Visual Impairment: Partially Limited Hearing Ability: Hard of Hearing Fumigator And Sterilizer Required: No Beliefs That Will Affect Care: Spiritual marital status: / Current Living Situation: Family Current Living Situation Comment: lives with dauhter and caregiver How many Children do You have: 3 Feels Safe at Home: Yes Diet: low carbohydrate and low salt caffeine: No Assistive Devices: Walker Allergies Allergies Allergy/AdvReac Type Severity Reaction Status Date / Time propoxyphene Allergy Intermediate Rash Verified 05/09/23 13:18 fentanyl AdvReac Intermediate PANIC Verified 05/09/23 13:18 WANTS TO RUN AND AGGRESSIVE methocarbamol AdvReac Intermediate DELERIUM Verified 05/09/23 13:18 zolpidem AdvReac Intermediate confusion Verified 05/09/23 13:18 Home Meds Home Medications Medication Instructions Recorded Confirmed albuterol sulfate 90 mcg/actuation 2 inh inhalation Q6 PRN Shortness 02/07/23 03/02/24 aerosol inhaler Of Breath Or Wheezing aripiprazole 2 mg tablet 2 mg PO QAM 02/07/23 03/02/24 atorvastatin 40 mg tablet 40 mg PO QAM 02/07/23 03/02/24 clonazepam 0.5 mg tablet 0.5 mg PO TID 02/07/23 03/02/24 ergocalciferol (vitamin D2) 1,250 1,250 mcg PO .Q THUR 02/07/23 03/02/24 mcg (50,000 unit) capsule (Vitamin D2) famotidine 20 mg tablet 40 mg PO QAM 02/07/23 03/02/24 fluticasone propionate 50 2 spray intranasal DAILY 02/07/23 03/02/24 mcg/actuation nasal spray,suspension (Flonase Allergy Relief) gabapentin 300 mg capsule 300 mg PO BID 02/07/23 03/02/24 lamotrigine 100 mg tablet 100 mg PO QAM 02/07/23 03/02/24 (Lamictal) lamotrigine 25 mg tablet (Lamictal) 25 mg PO QAM 02/07/23 03/02/24 lamotrigine 25 mg tablet (Lamictal) 50 mg PO HS 02/07/23 03/02/24 levothyroxine 88 mcg tablet 88 mcg PO QAM 02/07/23 03/02/24 metoprolol succinate 25 mg 25 mg PO QAM 02/07/23 03/02/24 tablet,extended release 24 hr montelukast 10 mg tablet 10 mg PO DAILY 02/07/23 03/02/24 nitroglycerin 0.4 mg sublingual 0.4 mg sublingual DIRECTED PRN 02/07/23 03/02/24 tablet (Nitrostat) Chest Pain pantoprazole 40 mg tablet,delayed 40 mg PO AMPM 02/07/23 03/02/24 release potassium chloride 20 mEq 20 meq PO QAM PRN when taking 02/07/23 03/02/24 tablet,extended additional torsemide release(part/cryst) (Klor-Con M) rifaximin 550 mg tablet (Xifaxan) 550 mg PO BID 02/07/23 03/02/24 tamsulosin 0.4 mg capsule 0.4 mg PO QAM 02/07/23 03/02/24 torsemide 20 mg tablet 20 mg PO QAM 02/07/23 03/02/24 trazodone 50 mg tablet 100 mg PO HS 02/07/23 03/02/24 venlafaxine 150 mg 150 mg PO QAM 02/07/23 03/02/24 capsule,extended release 24 hr venlafaxine 75 mg tablet,extended 75 mg PO QAM 02/07/23 03/02/24 release 24 hr insulin glargine 100 unit/mL 35 unit subcut BID 05/09/23 03/02/24 subcutaneous solution (Lantus U-100 Insulin) ascorbic acid (vitamin C) 500 mg 500 mg PO AMHS 05/12/23 03/02/24 tablet (Vitamin C) aspirin 81 mg tablet,delayed 81 mg PO QAM 05/12/23 03/02/24 release budesonide-formoterol HFA 160 2 puff inhalation AMHS 05/12/23 03/02/24 mcg-4.5 mcg/actuation aerosol inhaler (Symbicort) dicyclomine 10 mg capsule 10 mg PO QID PRN Abdominal Pain 05/12/23 03/02/24 metformin 500 mg tablet,extended 500 mg PO QDD 05/12/23 03/02/24 release 24 hr nystatin 100,000 unit/gram topical 1 applic topical TID 05/12/23 03/02/24 powder ([facility]) ondansetron HCl 8 mg tablet 8 mg PO Q8 PRN Nausea 05/12/23 03/02/24 oxybutynin chloride 10 mg 10 mg PO QAM 05/12/23 03/02/24 tablet,extended release 24 hr spironolactone 50 mg tablet 50 mg PO AMHS 05/12/23 03/02/24 lactulose 10 gram/15 mL oral 45 ml PO BID 03/02/24 03/02/24 solution semaglutide 2 mg/dose (8 mg/3 mL) 2 mg subcut .WEEKLY 03/02/24 03/02/24 subcutaneous pen injector (Ozempic) Results & Data (ED) Vital Signs Vital Signs - 24 hr 03/02/24 16:10 03/02/24 16:11 03/02/24 16:20 Temperature 36.8 C Temperature Source Temporal Artery Scan Pulse Rate 161 H Pulse Rate [Apical] Pulse Rate from SpO2 Sensor Pulse Rhythm [Apical] Respiratory Rate 20 Respiratory Effort / Characteristics Non-Labored Spontaneous Respiratory Depth Normal Respiratory Pattern Blood Pressure 122/81 116/91 Blood Pressure [Right Arm] Blood Pressure Mean 94 101 Blood Pressure Mean [Right Arm] Blood Pressure Position [Right Arm] Pulse Oximetry 96 93 Oxygen Delivery Method Room Air Room Air Sepsis Recent Fever Within 48 Hours No Sepsis New/Unexplained Change in Mental Status No Sepsis Action Taken by Nursing No Action Required 03/02/24 16:21 03/02/24 16:27 03/02/24 16:27 Temperature Temperature Source Pulse Rate 160 H 159 H 160 H Pulse Rate [Apical] Pulse Rate from SpO2 Sensor 160 H 160 H Pulse Rhythm [Apical] Respiratory Rate 17 20 Respiratory Effort / Characteristics Respiratory Depth Respiratory Pattern Blood Pressure Blood Pressure [Right Arm] Blood Pressure Mean Blood Pressure Mean [Right Arm] Blood Pressure Position [Right Arm] Pulse Oximetry 95 95 Oxygen Delivery Method Room Air Room Air Sepsis Recent Fever Within 48 Hours Sepsis New/Unexplained Change in Mental Status Sepsis Action Taken by Nursing 03/02/24 16:30 03/02/24 16:32 03/02/24 16:32 Temperature Temperature Source Pulse Rate 88 100 H 87 Pulse Rate [Apical] Pulse Rate from SpO2 Sensor Pulse Rhythm [Apical] Respiratory Rate 20 Respiratory Effort / Characteristics Respiratory Depth Respiratory Pattern Blood Pressure 125/71 125/71 Blood Pressure [Right Arm] Blood Pressure Mean 85 Blood Pressure Mean [Right Arm] Blood Pressure Position [Right Arm] Pulse Oximetry 95 Oxygen Delivery Method Room Air Sepsis Recent Fever Within 48 Hours Sepsis New/Unexplained Change in Mental Status Sepsis Action Taken by Nursing 03/02/24 16:33 03/02/24 16:39 03/02/24 16:42 Temperature Temperature Source Pulse Rate 156 H 82 79 Pulse Rate [Apical] Pulse Rate from SpO2 Sensor 79 Pulse Rhythm [Apical] Respiratory Rate 24 20 24 Respiratory Effort / Characteristics Respiratory Depth Respiratory Pattern Blood Pressure 100/66 Blood Pressure [Right Arm] Blood Pressure Mean 81 Blood Pressure Mean [Right Arm] Blood Pressure Position [Right Arm] Pulse Oximetry 94 96 95 Oxygen Delivery Method Room Air Room Air Sepsis Recent Fever Within 48 Hours Sepsis New/Unexplained Change in Mental Status Sepsis Action Taken by Nursing 03/02/24 16:51 03/02/24 17:02 03/02/24 17:06 Temperature Temperature Source Pulse Rate 79 141 H Pulse Rate [Apical] 139 H Pulse Rate from SpO2 Sensor 79 Pulse Rhythm [Apical] Respiratory Rate 14 Respiratory Effort / Characteristics Respiratory Depth Respiratory Pattern Blood Pressure 111/70 Blood Pressure [Right Arm] 106/69 Blood Pressure Mean Blood Pressure Mean [Right Arm] 81 Blood Pressure Position [Right Arm] Pulse Oximetry 96 Oxygen Delivery Method Sepsis Recent Fever Within 48 Hours Sepsis New/Unexplained Change in Mental Status Sepsis Action Taken by Nursing 03/02/24 17:12 03/02/24 17:31 03/02/24 17:58 Temperature Temperature Source Pulse Rate Pulse Rate [Apical] 76 78 76 Pulse Rate from SpO2 Sensor Pulse Rhythm [Apical] Regular Regular Respiratory Rate 18 20 20 Respiratory Effort / Characteristics Non-Labored Spontaneous Non-Labored Spontaneous Spontaneous Respiratory Depth Normal Normal Normal Respiratory Pattern Regular Regular Blood Pressure Blood Pressure [Right Arm] 115/63 108/59 L 104/68 Blood Pressure Mean Blood Pressure Mean [Right Arm] 80 75 80 Blood Pressure Position [Right Arm] Semi-fowlers Pulse Oximetry 96 96 95 Oxygen Delivery Method Room Air Room Air Room Air Sepsis Recent Fever Within 48 Hours Sepsis New/Unexplained Change in Mental Status Sepsis Action Taken by Long-Term Medications Current Medication List: was personally reviewed by me Laboratory Data Attestation: I reviewed the patient's lab results. 03/02/24 16:26 03/02/24 16:26 Lab Results 03/02/24 03/02/24 03/02/24 Range/Units 16:26 16:34 18:32 WBC 9.61 (4.8-10.8) K/ul RBC 4.92 (4.20-5.40) M/uL Hgb 13.5 (12.0-16.0) g/dl Hct 39.7 (37.0-47.0) % MCV 80.7 (80.0-100.0) fL MCH 27.4 (25.0-34.0) pg MCHC 34.0 (32.0-36.0) g/dL RDW Std Deviation 44.4 (36.4-46.3) fL RDW Coeff of Guillermo 15.3 H (11.5-14.5) % Plt Count 158 (130-400) K/uL MPV 10.5 (9.4-12.4) fL Immature Gran % (Auto) 1.4 % Neut % (Auto) 71.1 % Lymph % (Auto) 17.8 % [place] % (Auto) 6.3 % Eos % (Auto) 2.7 % Baso % (Auto) 0.7 % Neut # (Auto) 6.83 H (1.40-6.50) K/uL Lymph # (Auto) 1.71 (1.20-3.40) K/uL [place] # (Auto) 0.61 H (0.11-0.59) K/uL Eos # (Auto) 0.26 (0.00-0.50) K/uL Baso # (Auto) 0.07 (0.00-0.20) K/uL Immature Gran # (Auto) 0.13 (0.01-0.20) K/uL Sodium 129 L (136-145) mmol/L Potassium 3.5 (3.5-5.1) mmol/L Chloride 93 L (98-107) mmol/L Carbon Dioxide 26 (21-32) mmol/L Anion Gap 10 (3-11) BUN 7 (6-23) mg/dl Creatinine 1.03 (0.6-1.2) mg/dl Est Cr Clr Drug Dosing 63.7 ml/min Est GFR ( Amer) 62.0 ml/min Est GFR (Non-Af Amer) 53.5 ml/min BUN/Creatinine Ratio 6.8 L (10-20) Glucose 266 H (70-99(Fasting)) mg/dl Lactate 1.5 (0.4-2.0) mmol/L Calcium 9.1 (8.6-10.3) mg/dl Magnesium 1.6 L (1.7-2.4) mg/dl Total Bilirubin 0.8 (0.2-1.0) mg/dl AST 16 (13-39) U/L ALT 17 (7-52) U/L Alkaline Phosphatase 136 H (34-104) U/L Troponin I High Sens 33.8 H 42.5 H (0-14) pg/ml Total Protein 6.9 (6.0-8.3) gm/dl Albumin 3.9 (3.4-5.0) gm/dl Globulin 3.0 (2.5-4.0) gm/dl Albumin/Globulin Ratio 1.3 (0.9-2) TSH 0.851 (0.300-4.500) uIu/ml Urine Color Yellow Urine Appearance Turbid A (Clear) Urine pH 5.5 (4.5-7.5) Ur Specific [place] 1.008 (1.000-1.030) Urine Protein 1+ H (Negative) Urine Glucose (UA) Negative (Negative) Urine Ketones Negative (Negative) Urine Blood 2+ H (Negative) Urine Nitrite Positive A (Negative) Urine Bilirubin Negative (Negative) Urine Urobilinogen Negative (Negative) Ur Leukocyte Esterase 3+ H (Negative) Urine WBC (Auto) >50 H (0-5) /hpf Urine RBC (Auto) 0-2 (0-2) /hpf U Hyaline Cast (Auto) >20 H (0-2) /lpf U Epithel Cells (Auto) 3-5 H (0-2) /hpf Urine Bacteria (Auto) 4+ H (None Seen) WBC Casts Present A (None Prsent) /lpf Administered Medications Fluticasone Propionate (Fluticasone Propionate Na Spr 16 Gm Btl) 2 sprays NA Q24H ANGELLA Stop: 04/01/24 20:59 Last Admin: 03/02/24 22:06 Dose: 2 sprays Documented By: KAIT Sodium Chloride (Nss) 1,000 mls @ 75 mls/hr IV .[id number] ANGELLA Stop: 03/03/24 22:39 Last Admin: 03/02/24 21:28 Dose: 75 mls/hr Documented By: KAIT Discontinued Medications Adenosine (Adenosine Iv Soln 3 Mg/Ml 2 Ml Vial) Confirm Administered Dose 6 mg IV .STK-MED ONE Stop: 03/02/24 16:27 Last Admin: 03/02/24 16:28 Dose: 6 mg Documented By: CHERRY Doxycycline Hyclate (Doxycycline Hyclate 100 Mg Cap) 100 mg PO NOW STA Stop: 03/02/24 21:27 Last Admin: 03/02/24 21:47 Dose: 100 mg Documented By: KAIT Sodium Chloride (Nss) 500 mls @ 999 mls/hr IV .Q31M ANGELLA Stop: 03/02/24 17:15 Last Infusion: 03/02/24 17:08 Dose: Infused Documented By: Admin: 03/02/24 16:25 Dose: 999 mls/hr Documented By: CHERRY Sodium Chloride (Nss) 500 mls @ 999 mls/hr IV .Q31M ONE Stop: 03/02/24 17:35 Last Admin: 03/02/24 17:08 Dose: 999 mls/hr Documented By: CHERRY Cefepime HCl (Maxipime) 2,000 mg in 20 mls @ 5 mls/min IV NOW STA; Protocol Stop: 03/02/24 17:32 Last Admin: 03/02/24 18:28 Dose: 5 mls/min Documented By: JEFFREY Magnesium Sulfate/Dextrose (Magnesium Sulfate / D5w) 1 gm in 100 mls @ 100 mls/hr IV Q1H ANGELLA Stop: 03/02/24 21:58 Last Admin: 03/02/24 19:44 Dose: 100 mls/hr Documented By: Infusion: 03/02/24 19:43 Dose: Infused Documented By: Admin: 03/02/24 18:35 Dose: 100 mls/hr Documented By: JEFFREY Metoprolol Tartrate (Metoprolol Tartrate 1 Mg/Ml Vial) Confirm Administered Dose 5 mg IV .STK-MED ONE Stop: 03/02/24 16:31 Last Admin: 03/02/24 16:30 Dose: 2.5 mg Documented By: NA Metoprolol Tartrate (Metoprolol Tartrate 1 Mg/Ml Vial) Confirm Administered Dose 5 mg IV .STK-MED ONE Stop: 03/02/24 17:05 Last Admin: 03/02/24 17:06 Dose: 2.5 mg Documented By: NA Potassium Chloride (Potassium Chloride Crtab 20 Meq Tabcr) 40 meq PO NOW STA Stop: 03/02/24 19:19 Last Admin: 03/02/24 19:46 Dose: 40 meq Documented By: KAIT Imaging Data Radiologist's Impression: Chest X-Ray 03/02/24 16:33 SINGLE VIEW CHEST CLINICAL HISTORY: Generalized weakness. FINDINGS: An AP, portable, upright chest radiograph is compared to study dated 05/12/2023. The examination is degraded by portable technique and apical lordotic positioning. The patient is status post midline sternotomy. The heart is enlarged noting atherosclerotic calcification of the thoracic aorta. The pulmonary vasculature is noncongested. Chronic interstitial thickening and elevation of the right hemidiaphragm is similar to previous. No airspace consolidation or large pleural effusion is identified. No pneumothorax is seen. The skeletal structures are osteopenic. The bony thorax is grossly intact. Arthritic change is seen in the shoulders. IMPRESSION: Cardiomegaly with no active disease in the chest. ACT 112: Negative or not required by law. Electronically signed by: Berto Snow M.D. 03/02/2024 5:12 PM Discharge Plan Visit Data Chief Complaint: Tachycardia Stated Complaint: TACHYCARDIA ED Provider: Berto Magaña Discharge Problem: SVT (supraventricular tachycardia), Acute UTI, Elevated troponin, Acute dehydration, Hyponatremia, Hypomagnesemia Patient Disposition: Admitted As Inpatient Condition: Fair Discharge Instructions Interventions: ED Discharge Assessment Last Done: 03/02/24 21:40
[2024-03-02] MEDS: SODIUM CHLORIDE 0.9% 500 ML IV ONE (17:08)
--- NOTE | 2024-03-02 17:13 | XRay Report ---
SINGLE VIEW CHEST CLINICAL HISTORY: Generalized weakness. FINDINGS: An AP, portable, upright chest radiograph is compared to study dated 05/12/2023. The examina tion is degraded by portable technique and apical lordotic positioning. The patient is status post mi dline sternotomy. The heart is enlarged noting atherosclerotic calcification of the thoracic aorta. T he pulmonary vasculature is noncongested. Chronic interstitial thickening and elevation of the right hemidiaphragm is similar to previous. No airspace consolidation or large pleural effusion is identifi ed. No pneumothorax is seen. The skeletal structures are osteopenic. The bony thorax is grossly intac t. Arthritic change is seen in the shoulders. IMPRESSION: Cardiomegaly with no active disease in the chest. ACT 112: Negative or not required by law. Electronically signed by: Berto Snow M.D. 03/02/2024 5:12 PM
[2024-03-02 17:14] LABS: Appearance Urine Turbid (Clear); Bacteria Urine Automated 4+ (None Seen); Bilirubin Urine Negative (Negative); Blood Urine 2+ (Negative); Cast Urine Automated >20 /lpf (0-2); Color Urine Yellow; Glucose Urine UA Negative (Negative); Ketones Urine Negative (Negative); Leukocyte Esterase Urine 3+ (Negative); Nitrite Urine Positive (Negative); Protein Urine 1+ (Negative); RBC Urine Automated 0-2 /hpf (0-2); Specific Gravity Urine 1.008 (1.000-1.030); Urobilinogen Urine Negative (Negative); WBC Urine Automated >50 /hpf (0-5); White Blood Cell Casts Urine Present /lpf (None Prsent); pH Urine 5.5 (4.5-7.5)
[2024-03-02 17:21] LABS: Basophils # (auto) 0.07 K/uL (0.00-0.20); Basophils % (auto) 0.7 %; Eosinophils # (auto) 0.26 K/uL (0.00-0.50); Eosinophils % (auto) 2.7 %; Hematocrit (blood only) 39.7 % (37.0-47.0); Hemoglobin 13.5 g/dl (12.0-16.0); Immature Granulocytes # (auto) 0.13 K/uL (0.01-0.20); Immature Granulocytes % (auto) 1.4 %; Lymphocytes # (auto) 1.71 K/uL (1.20-3.40); Lymphocytes % (auto) 17.8 %; Mean Corpuscular Hemoglobin 27.4 pg (25.0-34.0); Mean Corpuscular Volume 80.7 fL (80.0-100.0); Mean Platelet Volume 10.5 fL (9.4-12.4); Monocytes # (auto) 0.61 K/uL (0.11-0.59); Monocytes % (auto) 6.3 %; Neutrophils # (auto) 6.83 K/uL (1.40-6.50); Neutrophils % (auto) 71.1 %; Platelet Count 158 K/uL (130-400); RDW Coefficient of Variation 15.3 % (11.5-14.5); RDW Standard Deviation 44.4 fL (36.4-46.3); Red Blood Count 4.92 M/uL (4.20-5.40); White Blood Count 9.61 K/ul (4.8-10.8)
[2024-03-02 17:39] LABS: Albumin Globulin Ratio 1.3 (0.9-2); Albumin Level 3.9 gm/dl (3.4-5.0); BUN Creatinine Ratio 6.8 (10-20); Bilirubin,Total 0.8 mg/dl (0.2-1.0); Calcium 9.1 mg/dl (8.6-10.3); Creatinine Clr Calc Pharmacy 63.7 ml/min; Est GFR (Non-African American) 53.5 ml/min; Magnesium 1.6 mg/dl (1.7-2.4); Potassium 3.5 mmol/L (3.5-5.1); Total Protein 6.9 gm/dl (6.0-8.3)
[2024-03-02 17:43] LABS: Adenovirus PCR Not Detected (NotDetected); Bordetella parapertussis PCR Not Detected (NotDetected); Bordetella pertussis PCR Not Detected (NotDetected); Chlamydia pneumoniae PCR Not Detected (NotDetected); Coronavirus 229E PCR Not Detected (NotDetected); Coronavirus CoV-2 (COVID19)PCR Not Detected (NotDetected); Coronavirus HKU1 PCR Not Detected (NotDetected); Coronavirus NL63 PCR Not Detected (NotDetected); Coronavirus OC43PCR Not Detected (NotDetected); Human Metapneumovirus PCR Not Detected (NotDetected); Influenza A PCR Not Detected (NotDetected); Influenza B PCR Not Detected (NotDetected); Mycoplasma pneumoniae PCR Not Detected (NotDetected); Parainfluenza Virus 1 PCR Not Detected (NotDetected); Parainfluenza Virus 2 PCR Not Detected (NotDetected); Parainfluenza Virus 3 PCR Not Detected (NotDetected); Parainfluenza Virus 4 PCR Not Detected (NotDetected); Respiratory Syncytial VirusPCR Not Detected (NotDetected); Rhinovirus/Enterovirus PCR Not Detected (NotDetected)
[2024-03-02 17:44] LABS: Troponin I High Sensitivity 33.8 pg/ml (0-14)
[2024-03-02 17:54] LABS: Thyroid Stimulating Hormone 0.851 uIu/ml (0.300-4.500)
[2024-03-02] MEDS: CEFEPIME 2,000 MG/20 ML VIAL IV STA (18:28)
--- NOTE | 2024-03-02 18:33 | History & Physical Report ---
Date of Service March 02, 2024 Assessment & Plan (1) SVT (supraventricular tachycardia): (2) Acute UTI (urinary tract infection): (3) Hypomagnesemia: Plan Angelina Ballard is a 73y/o F with PMHx of dyslipidemia, hypothyroidism, DM type II [on long-term insulin therapy], diabetic neuropathy, diabetic gastroparesis, CKD stage III, COPD, HTN, chronic diastolic congestive heart failure, moderate aortic stenosis, CAD, chronic liver disease and cirrhosis, portal hypertensive gastropathy, GERD, GONZALEZ/fatty liver, urinary incontinence [suprapubic catheter in place], Fgxhzny-Zabrt-Vfpsd disease, bipolar disorder and other problems listed below who presented to the ED for evaluation secondary to tachycardia. Supraventricular Tachycardia (SVT), HTN Patient saw her PCP today and was found to be tachycardic w/ a HR ~160bpm. Patient was ultimately referred to the ED by her PCP after she was found to be tachycardic in the office. EKG on presentation to the ED showed SVT w/ HR 159bpm and L anterior fascicular block. Vagal maneuvers ineffective. First received 6mg IV adenosine x 1 dose and reverted back to NSR. Did however go back into SVT about 15 minutes later. Received IV metoprolol 2.5mg x 2 doses and reverted back to NSR once again. 1L NSS in total given in the ED. Routine cardiology consult pending. Echo pending. Continue home metoprolol succinate. PRN IV metoprolol tartrate 5mg Q4H for HR>120. Hold home diuretics. Acute Urinary Tract Infection (UTI) Suprapubic Catheter POA - Was previously exchanged 2-3 weeks ago per patient's daughter. Follows w/ [facility]. Patient w/ lower abdominal pain x ~ 2 weeks. Urine has also been darker than usual. Her daughter had noticed malodorous urine from her suprapubic catheter over the past 5 days. UA infected. IV cefepime started in ED. Continue ABX coverage w/ IV Cefepime. Urine cx pending - follow. Continue home oxybutynin. [facility] consulted - patient will more than likely require catheter exchange. Hypomagnesemia: Mag 1.6 on presentation, will replete w/ total of 4g today. K+ 3.5 - will administer 40mEq oral dose x 1. Continue to monitor & replete electrolytes PRN. Recent Viral Illness: Patient has had a productive cough, sore throat & R ear pain for ~2 weeks. No fevers. CXR negative for any acute findings. RVP negative. Will start oral doxycycline. Continue daily Flonase. Chronic Liver Disease and Cirrhosis: Stable, no evidence of acute encephalopathy. Continue home lactulose and Xifaxan. Clgpyml-Tljbw-Qaqlp Disease: Has foot drop at baseline, wears b/l LE braces. DM Type II: Hold home agents, basal/bolus insulin regimen while inpatient. BSG checks ACHS. Hgb A1c in AM. Glycemic pharmacy consulted. Other Chronic Medical Conditions: Hypothyroidism, diabetic neuropathy, COPD, GERD, bipolar disorder --> Can continue home meds for these specific conditions. DVT Prophylaxis: SQ Heparin Code Status: FULL CODE PCP: Brian Domínguez MD Disposition: Admit to PCU/Telemetry Patient seen in collaboration with Dr. Toussaint. Please see addendum. I spent a total of 65 minutes coordinating, documenting, and providing care for this patient excluding time spent in the performance of separately billed services. This included personally reviewing all current laboratories and imaging studies, medical reconciliation, outpatient chart review and discussion with specialists. This chart was completed in part utilizing Speech Voice Recognition Software. Grammatical errors, random word insertions, pronoun errors, and incomplete sentences are an occasional consequence of this system due to software limitations, ambient noise, and hardware issues. Any formal questions or concerns about the content, text, or information contained within the body of this dictation should be directly addressed to the provider for clarification. History of Present Illness Chief Complaint: Tachycardia Primary Care Provider: Brian Domínguez MD Angelina Ballard is a 73y/o F with PMHx of dyslipidemia, hypothyroidism, DM type II [on long-term insulin therapy], diabetic neuropathy, diabetic gastroparesis, CKD stage III, COPD, HTN, chronic diastolic congestive heart failure, moderate aortic stenosis, CAD, chronic liver disease and cirrhosis, portal hypertensive gastropathy, GERD, GONZALEZ/fatty liver, urinary incontinence [suprapubic catheter in place], Vnhiffk-Ljdjj-Gltsh disease, bipolar disorder and other problems listed below who presented to the ED for evaluation secondary to tachycardia. History obtained from patient and associated chart review. According to ED provider, patient has not been feeling for a little while. She has had a cough, sore throat and R ear pain for approximately 2 weeks. Cough has been productive. No fevers that she recalls. She saw her PCP today for further evaluation and was found to be tachycardic w/ a HR ~160bpm. Patient was ultimately referred to the ED by her PCP after she was found to be tachycardic in the office. EKG on presentation to the ED showed SVT w/ HR 159bpm and L an terior fascicular block. Vagal maneuvers ineffective. First received 6mg IV adenosine x 1 dose and reverted back to NSR. Did however go back into SVT about 15 minutes later. Received IV metoprolol 2.5mg x 2 doses and reverted back to NSR once again. Appetite unchanged. Denies any SOB. Was experiencing some chest pain when her heart was racing during the episode of tachycardia today. She is having some lower abdominal pain, which has been ongoing for the past approximately 2 weeks. Her daughter had noticed malodorous urine from her suprapubic catheter today. Urine has been darker than usual. No tobacco use. No alcohol use. No recreational drug use. Allergies Allergy/AdvReac Type Severity Reaction Status Date / Time propoxyphene Allergy Intermediate Rash Verified 05/09/23 13:18 fentanyl AdvReac Intermediate PANIC Verified 05/09/23 13:18 WANTS TO RUN AND AGGRESSIVE methocarbamol AdvReac Intermediate DELERIUM Verified 05/09/23 13:18 zolpidem AdvReac Intermediate confusion Verified 05/09/23 13:18 Home Medications Medication Instructions Recorded Confirmed Type albuterol sulfate 90 mcg/actuation 2 inh inhalation Q6 PRN Shortness 02/07/23 03/02/24 History aerosol inhaler Of Breath Or Wheezing aripiprazole 2 mg tablet 2 mg PO QAM 02/07/23 03/02/24 History atorvastatin 40 mg tablet 40 mg PO QAM 02/07/23 03/02/24 History clonazepam 0.5 mg tablet 0.5 mg PO TID 02/07/23 03/02/24 History ergocalciferol (vitamin D2) 1,250 1,250 mcg PO .Q THUR 02/07/23 03/02/24 History mcg (50,000 unit) capsule (Vitamin D2) famotidine 20 mg tablet 40 mg PO QAM 02/07/23 03/02/24 History fluticasone propionate 50 2 spray intranasal DAILY 02/07/23 03/02/24 History mcg/actuation nasal spray,suspension (Flonase Allergy Relief) gabapentin 300 mg capsule 300 mg PO BID 02/07/23 03/02/24 History lamotrigine 100 mg tablet 100 mg PO QAM 02/07/23 03/02/24 History (Lamictal) lamotrigine 25 mg tablet (Lamictal) 25 mg PO QAM 02/07/23 03/02/24 History lamotrigine 25 mg tablet (Lamictal) 50 mg PO HS 02/07/23 03/02/24 History levothyroxine 88 mcg tablet 88 mcg PO QAM 02/07/23 03/02/24 History metoprolol succinate 25 mg 25 mg PO QAM 02/07/23 03/02/24 History tablet,extended release 24 hr montelukast 10 mg tablet 10 mg PO DAILY 02/07/23 03/02/24 History nitroglycerin 0.4 mg sublingual 0.4 mg sublingual DIRECTED PRN 02/07/23 03/02/24 History tablet (Nitrostat) Chest Pain pantoprazole 40 mg tablet,delayed 40 mg PO AMPM 02/07/23 03/02/24 History release potassium chloride 20 mEq 20 meq PO QAM PRN when taking 02/07/23 03/02/24 History tablet,extended additional torsemide release(part/cryst) (Klor-Con M) rifaximin 550 mg tablet (Xifaxan) 550 mg PO BID 02/07/23 03/02/24 History tamsulosin 0.4 mg capsule 0.4 mg PO QAM 02/07/23 03/02/24 History torsemide 20 mg tablet 20 mg PO QAM 02/07/23 03/02/24 History trazodone 50 mg tablet 100 mg PO HS 02/07/23 03/02/24 History venlafaxine 150 mg 150 mg PO QAM 02/07/23 03/02/24 History capsule,extended release 24 hr venlafaxine 75 mg tablet,extended 75 mg PO QAM 02/07/23 03/02/24 History release 24 hr insulin glargine 100 unit/mL 35 unit subcut BID 05/09/23 03/02/24 History subcutaneous solution (Lantus U-100 Insulin) ascorbic acid (vitamin C) 500 mg 500 mg PO AMHS 05/12/23 03/02/24 History tablet (Vitamin C) aspirin 81 mg tablet,delayed 81 mg PO QAM 05/12/23 03/02/24 History release budesonide-formoterol HFA 160 2 puff inhalation AMHS 05/12/23 03/02/24 History mcg-4.5 mcg/actuation aerosol inhaler (Symbicort) dicyclomine 10 mg capsule 10 mg PO QID PRN Abdominal Pain 05/12/23 03/02/24 History metformin 500 mg tablet,extended 500 mg PO QDD 05/12/23 03/02/24 History release 24 hr nystatin 100,000 unit/gram topical 1 applic topical TID 05/12/23 03/02/24 History powder (Nyamy) ondansetron HCl 8 mg tablet 8 mg PO Q8 PRN Nausea 05/12/23 03/02/24 History oxybutynin chloride 10 mg 10 mg PO QAM 05/12/23 03/02/24 History tablet,extended release 24 hr spironolactone 50 mg tablet 50 mg PO AMHS 05/12/23 03/02/24 History lactulose 10 gram/15 mL oral 45 ml PO BID 03/02/24 03/02/24 History solution semaglutide 2 mg/dose (8 mg/3 mL) 2 mg subcut .WEEKLY 03/02/24 03/02/24 History subcutaneous pen injector (Ozempic) Past Med/Surg History Problem List (Updated 03/02/24 @ 18:48 by Amena Luong PA-C) Acute UTI (urinary tract infection) SVT (supraventricular tachycardia) Non-ST elevation NC (NSTEMI) (Acute) Acute confusion (Acute) Fracture of femur, distal, left, closed Encephalopathy (Acute) Non-ST elevation NC (NSTEMI) (Acute) Acute hyponatremia (Acute) Hypocalcemia (Acute) Postoperative anemia Sepsis associated hypotension Edema leg Chronic heart failure with preserved ejection fraction CAD (coronary artery disease), [place] coronary artery Preop cardiovascular exam Abdominal distension Femoral distal fracture (Acute) Fall (Acute) Abnormal ankle brachial index Diabetic foot ulcer DVT prophylaxis UTI (urinary tract infection) (Acute) Failure of outpatient treatment (Acute) Flank pain (Acute) Urinary tract infection due to ESBL Klebsiella Hyponatremia Encounter for pre-operative examination Pyelonephritis (Acute) Acute UTI (Acute) Weakness (Acute) Pneumonia (Acute) Confusion (Acute) Encounter for rehabilitation evaluation Fever Cough CAP (community acquired pneumonia) Elevated troponin Hypomagnesemia Sepsis (Acute) Pneumonia (Acute) Fever (Acute) Hypoxia (Acute) Cirrhosis of liver not due to alcohol Demand ischemia Unstable angina Chest pain (Acute) Blood glucose elevated (Acute) Discharge planning issues Altered mental status Fall (Acute) CHI (closed head injury) (Acute) Weakness (Acute) Abdominal pain (Acute) Candidal UTI (urinary tract infection) H/O urinary retention COVID-19 (Acute) Fall (Acute) Ambulatory dysfunction Recurrent falls Ambulatory dysfunction (Acute) 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 (Acute) Closed hip fracture (Acute) Hip fracture, left S/P hip hemiarthroplasty Acute on chronic diastolic heart failure with preserved ejection fraction Infection due to ESBL-producing Escherichia coli Acute blood loss anemia Elevated troponin (Acute) Encephalopathy Left hip pain Left hip hemiarthroplasty 02/05/2022 Chronic low back pain Encephalopathy (Acute) d/c from [facility] 09/20/19 (hepatic encephalopathy) Chronic pain syndrome S/P CABG x 1 (Chronic) 2010 - single vessel S/P CARLOS (total abdominal hysterectomy) (Chronic) Hx of cholecystectomy (Chronic) History of back surgery (Chronic) sacral area History of appendectomy (Chronic) History of total right knee replacement (Chronic) Anxiety (Chronic) Bipolar disorder (Chronic) Zfvpnxs-Rmxrb-Ntxrh disease (Chronic) follows w/ Dr. Lemus LEG WEAKNESS CURRENT PT/OT FOR - BRACES B/L LEGS Gastroparesis (Chronic) Portal hypertensive gastropathy (Chronic) GONZALEZ (nonalcoholic steatohepatitis) (Chronic) Moderate aortic stenosis (Chronic) Chronic diastolic CHF (congestive heart failure) (Chronic) Hypertension (Chronic) CAD (coronary artery disease) (Chronic) History of multiple PCI's to the RCA with subsequent CABG x1 in 2010 x 1 vessel Most recent cardiac testing-negative DSE in December 2017 Follows w/ Dr. Blackwell and Dr. Lucas DM type 2 (diabetes mellitus, type 2) (Chronic) IDDM Hypothyroidism (Chronic) Dyslipidemia (Chronic) Medical History Fracture of femur, distal, left, closed Cardiac arrest pt states she was told she went into cardiac arrest during her hip surgery in 02/2022 at [facility] and was "revived". no other details were given. Palpitations occasionally -- pt states since her metoprolol has been decreased. Cough started about 8 months ago s/p covid-19 virus -- currently treating with augmentin PO bid and prednisone. prednisone to end 05/27/22 and abx to finish on 06/01/22 Hx of fall pt. fell in the bathroom at home, pt. wasn't aware of what happen but was told this by her family 02/05/2022 Left hip pain Left hip hemiarthroplasty 02/05/2022 Chronic low back pain History of anesthesia reaction REMOTE HX, SIDE EFFECTS : ANXIETY AND SEVERE N/V History of COVID-19 may or june 2021, has cough since. SOB (shortness of breath) SINCE COVID -8 MON AGO, SOB, COUGH...NO DX...HAS VISIT WITH PULM UPCOMING TO EVALUATE Urinary incontinence UTI (urinary tract infection) FREQUENT/PREVENTATIVE ABX'S CURRENTLY MOST RECENT UTI JANUARY 04 - ABX COMPLETE - ON CURRENT PROPHYLACTIC TX Encephalopathy d/c from [facility] 09/20/19 (hepatic encephalopathy) Irregular heart beat follows Dr. Lucas / [facility] Chronic pain syndrome 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 Spondylosis Osteoarthritis GERD (gastroesophageal reflux disease) Depression Anxiety Bipolar disorder Viofjvm-Idlqj-Jscca disease follows w/ Dr. Lemus LEG WEAKNESS CURRENT PT/OT FOR - BRACES B/L LEGS Gastroparesis Portal hypertensive gastropathy GONZALEZ (nonalcoholic steatohepatitis) Moderate aortic stenosis Chronic diastolic CHF (congestive heart failure) Hypertension CAD (coronary artery disease) History of multiple PCI's to the RCA with subsequent CABG x1 in 2010 x 1 vessel Most recent cardiac testing-negative DSE in December 2017 Follows w/ Dr. Blackwell and Dr. Lucas DM type 2 (diabetes mellitus, type 2) IDDM Hypothyroidism Dyslipidemia Surgical History History of left hip replacement 02/05/2022 History of cataract surgery RT History of esophagogastroduodenoscopy (EGD) History of colonoscopy History of heart artery stent 2 yrs ago @ [facility] > 6 or 7 stents > follows Dr. Lucas History of cardiac cath multiple - most recent - 2 years ago @ [place] - FOR CP S/P CABG x 1 2011 - single vessel S/P CARLOS (total abdominal hysterectomy) Hx of cholecystectomy History of back surgery sacral area History of appendectomy History of total right knee replacement Family History Father Coronary heart disease Brother Coronary heart disease Father No problems noted. Mother No problems noted. Other No family history of adverse response to anesthesia Social History (Updated 05/09/23 @ 13:29 by Madelyn Biswas RN) Smoking Status: Never smoker Tobacco Type: Cigarettes Second Hand Exposure: Yes; Do You Dip or Chew Tobacco: No; Hx Alcohol Use: No Hx Substance Use: No Preferred Language: Setswana Communication Ability: Impaired Visual Impairment: Partially Limited Hearing Ability: Hard of Hearing Joiner Required: No Beliefs That Will Affect Care: Spiritual marital status: / Current Living Situation: Family Current Living Situation Comment: lives with dauhter and caregiver How many Children do You have: 3 Feels Safe at Home: Yes Diet: low carbohydrate and low salt caffeine: No Assistive Devices: Walker Review of Systems Review of Systems: At least ten systems reviewed and negative, except as noted in the HPI. Physical Exam Physical Exam: Please refer to Dr. Toussaint's addendum for physical examination findings. Results & Data Results & Data Vital Signs (Past 12 Hours) Vital Signs Temp Pulse Pulse Resp BP BP Pulse Ox 03/02/24 17:58 76 20 104/68 95 03/02/24 17:31 78 20 108/59 L 96 03/02/24 17:12 76 18 115/63 96 03/02/24 17:06 141 H 111/70 03/02/24 17:02 139 H 106/69 03/02/24 16:51 79 14 96 03/02/24 16:42 79 24 95 03/02/24 16:39 82 20 100/66 96 03/02/24 16:33 156 H 24 94 03/02/24 16:32 87 20 125/71 95 03/02/24 16:32 100 H 03/02/24 16:30 88 125/71 03/02/24 16:27 160 H 20 95 03/02/24 16:27 159 H 03/02/24 16:21 160 H 17 95 03/02/24 16:20 116/91 03/02/24 16:11 36.8 C 161 H 20 122/81 93 03/02/24 16:10 96 O2 Del Method 03/02/24 17:58 Room Air 03/02/24 17:31 Room Air 03/02/24 17:12 Room Air 03/02/24 17:06 03/02/24 17:02 03/02/24 16:51 03/02/24 16:42 03/02/24 16:39 Room Air 03/02/24 16:33 Room Air 03/02/24 16:32 Room Air 03/02/24 16:32 03/02/24 16:30 03/02/24 16:27 Room Air 03/02/24 16:27 03/02/24 16:21 Room Air 03/02/24 16:20 03/02/24 16:11 Room Air 03/02/24 16:10 Room Air Laboratory Results Short CBC 03/02/24 Range/Units 16:26 WBC 9.61 (4.8-10.8) K/ul Hgb 13.5 (12.0-16.0) g/dl Hct 39.7 (37.0-47.0) % Plt Count 158 (130-400) K/uL BMP 03/02/24 16:26 Sodium 129 L Potassium 3.5 Chloride 93 L Carbon Dioxide 26 BUN 7 Creatinine 1.03 Glucose 266 H Calcium 9.1 Liver Function 03/02/24 Range/Units 16:26 Total Bilirubin 0.8 (0.2-1.0) mg/dl AST 16 (13-39) U/L ALT 17 (7-52) U/L Alkaline Phosphatase 136 H (34-104) U/L Albumin 3.9 (3.4-5.0) gm/dl Urine 03/02/24 Range/Units 16:34 Urine Color Yellow Urine Appearance Turbid A (Clear) Urine pH 5.5 (4.5-7.5) Ur Specific Wykoff 1.008 (1.000-1.030) Urine Protein 1+ H (Negative) Urine Glucose (UA) Negative (Negative) Diagnostic Findings Chest X-Ray 03/02/24 16:33 SINGLE VIEW CHEST CLINICAL HISTORY: Generalized weakness. FINDINGS: An AP, portable, upright chest radiograph is compared to study dated 05/12/2023. The examination is degraded by portable technique and apical lordotic positioning. The patient is status post midline sternotomy. The heart is enlarged noting atherosclerotic calcification of the thoracic aorta. The pulmonary vasculature is noncongested. Chronic interstitial thickening and elevation of the right hemidiaphragm is similar to previous. No airspace consolidation or large pleural effusion is identified. No pneumothorax is seen. The skeletal structures are osteopenic. The bony thorax is grossly intact. Arthritic change is seen in the shoulders. IMPRESSION: Cardiomegaly with no active disease in the chest. ACT 112: Negative or not required by law. Electronically signed by: Berto Snow M.D. 03/02/2024 5:12 PM Medications Administered Magnesium Sulfate/Dextrose (Magnesium Sulfate / D5w) 1 gm in 100 mls @ 100 mls/hr IV Q1H ANGELLA Stop: 03/02/24 19:58 Last Admin: 03/02/24 18:35 Dose: 100 mls/hr Documented By: JEFFREY Discontinued Medications Adenosine (Adenosine Iv Soln 3 Mg/Ml 2 Ml Vial) Confirm Administered Dose 6 mg IV .STK-MED ONE Stop: 03/02/24 16:27 Last Admin: 03/02/24 16:28 Dose: 6 mg Documented By: CHERRY Sodium Chloride (Nss) 500 mls @ 999 mls/hr IV .Q31M ANGELLA Stop: 03/02/24 17:15 Last Infusion: 03/02/24 17:08 Dose: Infused Documented By: Admin: 03/02/24 16:25 Dose: 999 mls/hr Documented By: CHERRY Sodium Chloride (Nss) 500 mls @ 999 mls/hr IV .Q31M ONE Stop: 03/02/24 17:35 Last Admin: 03/02/24 17:08 Dose: 999 mls/hr Documented By: CHERRY Cefepime HCl (Maxipime) 2,000 mg in 20 mls @ 5 mls/min IV NOW STA; Protocol Stop: 03/02/24 17:32 Last Admin: 03/02/24 18:28 Dose: 5 mls/min Documented By: JEFFREY Metoprolol Tartrate (Metoprolol Tartrate 1 Mg/Ml Vial) Confirm Administered Dose 5 mg IV .STK-MED ONE Stop: 03/02/24 16:31 Last Admin: 03/02/24 16:30 Dose: 2.5 mg Documented By: NA Metoprolol Tartrate (Metoprolol Tartrate 1 Mg/Ml Vial) Confirm Administered Dose 5 mg IV .STK-MED ONE Stop: 03/02/24 17:05 Last Admin: 03/02/24 17:06 Dose: 2.5 mg Documented By: NA Code Status & VTE Plan Code Status FULL CODE Supervising Physician Co-Signing Physician Notes 73-year-old lady with PMH of HLD, hypothyroidism, T2DM/insulin requiring, diabetic neuropathy, diabetic gastroparesis, CKD stage III, COPD, HTN, chronic diastolic congestive heart failure, moderate aortic stenosis, CAD, chronic liver disease and cirrhosis, portal hypertensive gastropathy, GERD, GONZALEZ/fatty liver, urinary incontinence/suprapubic catheter in place, Charcot Rashmi tooth disease, bipolar disorder presented to the ED for evaluation secondary to tachycardia at referral of PCP office. 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 But she continues to have sore throat/dry cough/right ear ache and hence presented to the PCP office today where she was noted to have tachycardia with heart rate in 160s and sent to the ED for further evaluation. Patient reports overall her flu related symptoms are slightly better/about the same, denies fever, reports poor appetite. Patient was noted to be in SVT in the ED, given a dose of metoprolol and then adenosine which broke her into sinus rhythm, reverted back to SVT again in about 10 minutes [as per my d/w ED physician] and was given additional metoprolol and IV fluid and has since maintained sinus rhythm. Patient denies shortness of breath but had some mild chest pain during the episode, did have palpitation. Pt has suprapubic cath. Patient also reports belly pain for about 1 and half weeks duration, has more darker urine and more foul-smelling urine for about the same. Per patient's daughter, the suprapubic catheter site also looks erythematous with some purulence. She believes she might be infected at port of entry. Patient reports moving bowels okay. Labs reviewed, sodium 129, magnesium 1.6, troponin 33 and 42. UA suggestive of UTI. CXR with no acute finding. Active problems: SVT: Status post IV metoprolol 5 mg x 2 and adenosine 6 mg iv and IV fluid x 1L in the ED. See above. Patient currently in sinus. Trend troponin, telemetry monitoring, echo, cardiology consult. Continue home metoprolol, continue metoprolol tartrate IV 5 mg every 4 hours as needed for heart rate greater than 120. Clinical dehydration: noted on exam at bedside. s/p 1 l ivf at ed, will c/w nss at 75 ml/hr x 2 bag for now. resume diet. will hold diuretics today. Hypomagnesemia: Patient getting 2 g of magnesium in the ED, will give additional 2 g for total of 4 g of magnesium today. Will replete potassium with 40 mEq p.o. x 1 dose. Catheter associated UTI: Suprapubic catheter site with erythema/purulent drainage. Patient does have lower abdominal pain. Patient received cefepime in the ED. Will continue cefepime. Consult urology/patient will need catheter exchange due to UTI. Recent viral illness: Patient has bilateral mid to basal crackles, chest x-ray with no acute finding. Patient having flu like illness for about 2 weeks. Will utilize doxycycline 100 mg twice daily. Flonase daily. Other chronic medical conditions: Continue with/resume home meds as when able. On exam: GENERAL: Alert and oriented x3. NAD, on RA. HEENT: No pallor, no icterus. Pupils equal, round and reactive to light. Oral mucosa moist. Throat congestion noted. NECK: No JVD, no neck masses. HEART: S1 and S2 heard. Regular rate and rhythm. No murmur, no gallop. RESPIRATORY SYSTEM: Normal AP diameter. No accessory muscle use. No wheezing, b/l mid and basal crackles. ABDOMEN: Soft, bowel sounds present, nontender, no distention. Suprapubic cath noted, light yellow urine in bag. Cath site erythematous and purulent drainage. CENTRAL NERVOUS SYSTEM: No facial droop. Speech is clear. Obeys simple commands. Moves extremities. EXTREMITIES: LE in braces [h/o foot drop], no edema appreciated. I have seen and examined the patient and have discussed the case with the provider above. I agree with the assessment and plan as stated.
[2024-03-02] MEDS: MAGNESIUM SULFATE / D5W 1 GM/100 ML BAG IV SCH (18:35)
[2024-03-02] MEDS: POTASSIUM CHLORIDE CRTAB 20 MEQ TABCR PO STA (19:46)
[2024-03-02] MEDS ORDERED: SODIUM CHLORIDE 0.9% 500 ML IV SCH (20:00)
[2024-03-02] MEDS: SODIUM CHLORIDE 0.9% 1,000 ML IV SCH (21:28)
[2024-03-02] MEDS ORDERED: PROMETHAZINE 6.25 MG/50.25 ML BAG IV PRN (21:41)
[2024-03-02] MEDS ORDERED: CARBOHYDRATES FOR HYPOGLYCEMIA PO PRN (21:41)
[2024-03-02] MEDS ORDERED: GLUCOSE 40% GEL 15 GM TUBE PO PRN (21:41)
[2024-03-02] MEDS ORDERED: DEXTROSE 50% 50 ML SYRINGE IV PRN (21:41)
[2024-03-02] MEDS ORDERED: MAGNESIUM HYDROXIDE SUSP 30 ML UDC PO PRN (21:41)
[2024-03-02] MEDS ORDERED: GLUCAGON FOR INJ 1 MG VIAL SQ PRN (21:41)
[2024-03-02] MEDS ORDERED: ALUMINUM/MAGNESIUM SUSP 30 ML UDC PO PRN (21:41)
[2024-03-02] MEDS ORDERED: GLUCOSE 10 TAB/TUBE PO PRN (21:41)
[2024-03-02] MEDS ORDERED: POLYETHYLENE (MIRALAX) 17 GM PACK PO PRN (21:41)
[2024-03-02] MEDS ORDERED: PHARMACY GLYCEMIC MGMT CONSULT PRN (21:41)
[2024-03-02] MEDS: DOXYCYCLINE HYCLATE 100 MG CAP PO STA (21:47)
[2024-03-02] MEDS: FLUTICASONE PROPIONATE NA SPR 16 GM BTL SCH (22:06)
--- NOTE | 2024-03-02 22:46 | Urology Consultation ---
Date of Consultation March 02, 2024 Assessment & Plan (1) Acute UTI: The patient has been admitted on the hospitalist service. From a urologic perspective we recommend the following: Patient has been initiated on antibiotics in the form of cefepime and she is also receiving doxycycline. -Appropriate cultures have been sent and these cultures to be followed for and antibiotics to be tailored based on these results A determination will be made on 02/24/2024 to determine if patient's suprapubic catheter needs to be exchanged, although she reports has been changed approximately 1.5 weeks ago by Additional recommendations will be forthcoming based on her clinical course as follows History of Present Illness Reason for Consultation: Urinary tract infection with suprapubic catheter in place. Attending Physician: Jazmin Toussaint MD History of Present Illness This is a 73-year-old female who presented to the emergency department secondary to tachycardia. Patient has since been admitted to the hospital for treatment of supraventricular tachycardia. Patient was found to have a urinary tract infection with labs described below. For this reason urology was consulted. Patient notes that she has a suprapubic catheter in place and she follows locally with Dr. Alfredo Panda of [facility] urology. Patient says that her suprapubic catheter was changed by Dr. Panda himself approximately 1.5 weeks ago. She denies any fevers, shakes, or chills. She denies any abdominal pain. She denies any back or flank pain. She notes that her suprapubic catheter has not been giving her any issues. Reportedly the patient's family noted however that the patient appeared to have similar odorous urine from her suprapubic ca theter over the past 5 days. Since arrival to the hospital patient has had labs and imaging which I independently reviewed. Chest x-ray showed no evidence of pneumonia. CBC revealed white blood cell count,, hematocrit, 40, normal. Chemistry profile showed sodium is 129 with a normal potassium. BUN and creatinine were both normal. Magnesium was noted to be 1.6. Urinalysis showed turbid urine which was positive for nitrites. There is 3+ leukocyte esterase and pyuria with greater than 50 white blood cells per high-power field. There is 4+ bacteria noted on the study. A bio fire study test was performed and was negative for all viruses tested. At the time of my interview the patient is resting comfortably in bed she was in no distress. Allergies Allergy/AdvReac Type Severity Reaction Status Date / Time propoxyphene Allergy Intermediate Rash Verified 05/09/23 13:18 fentanyl AdvReac Intermediate PANIC Verified 05/09/23 13:18 WANTS TO RUN AND AGGRESSIVE methocarbamol AdvReac Intermediate DELERIUM Verified 05/09/23 13:18 zolpidem AdvReac Intermediate confusion Verified 05/09/23 13:18 Home Medications Medication Instructions Recorded Confirmed Type albuterol sulfate 90 mcg/actuation 2 inh inhalation Q6 PRN Shortness 02/07/23 03/02/24 History aerosol inhaler Of Breath Or Wheezing aripiprazole 2 mg tablet 2 mg PO QAM 02/07/23 03/02/24 History atorvastatin 40 mg tablet 40 mg PO QAM 02/07/23 03/02/24 History clonazepam 0.5 mg tablet 0.5 mg PO TID 02/07/23 03/02/24 History ergocalciferol (vitamin D2) 1,250 1,250 mcg PO .Q THUR 02/07/23 03/02/24 History mcg (50,000 unit) capsule (Vitamin D2) famotidine 20 mg tablet 40 mg PO QAM 02/07/23 03/02/24 History fluticasone propionate 50 2 spray intranasal DAILY 02/07/23 03/02/24 History mcg/actuation nasal spray,suspension (Flonase Allergy Relief) gabapentin 300 mg capsule 300 mg PO BID 02/07/23 03/02/24 History lamotrigine 100 mg tablet 100 mg PO QAM 02/07/23 03/02/24 History (Lamictal) lamotrigine 25 mg tablet (Lamictal) 25 mg PO QAM 02/07/23 03/02/24 History lamotrigine 25 mg tablet (Lamictal) 50 mg PO HS 02/07/23 03/02/24 History levothyroxine 88 mcg tablet 88 mcg PO QAM 02/07/23 03/02/24 History metoprolol succinate 25 mg 25 mg PO QAM 02/07/23 03/02/24 History tablet,extended release 24 hr montelukast 10 mg tablet 10 mg PO DAILY 02/07/23 03/02/24 History nitroglycerin 0.4 mg sublingual 0.4 mg sublingual DIRECTED PRN 02/07/23 03/02/24 History tablet (Nitrostat) Chest Pain pantoprazole 40 mg tablet,delayed 40 mg PO AMPM 02/07/23 03/02/24 History release potassium chloride 20 mEq 20 meq PO QAM PRN when taking 02/07/23 03/02/24 History tablet,extended additional torsemide release(part/cryst) (Klor-Con M) rifaximin 550 mg tablet (Xifaxan) 550 mg PO BID 02/07/23 03/02/24 History tamsulosin 0.4 mg capsule 0.4 mg PO QAM 02/07/23 03/02/24 History torsemide 20 mg tablet 20 mg PO QAM 02/07/23 03/02/24 History trazodone 50 mg tablet 100 mg PO HS 02/07/23 03/02/24 History venlafaxine 150 mg 150 mg PO QAM 02/07/23 03/02/24 History capsule,extended release 24 hr venlafaxine 75 mg tablet,extended 75 mg PO QAM 02/07/23 03/02/24 History release 24 hr insulin glargine 100 unit/mL 35 unit subcut BID 05/09/23 03/02/24 History subcutaneous solution (Lantus U-100 Insulin) ascorbic acid (vitamin C) 500 mg 500 mg PO AMHS 05/12/23 03/02/24 History tablet (Vitamin C) aspirin 81 mg tablet,delayed 81 mg PO QAM 05/12/23 03/02/24 History release budesonide-formoterol HFA 160 2 puff inhalation AMHS 05/12/23 03/02/24 History mcg-4.5 mcg/actuation aerosol inhaler (Symbicort) dicyclomine 10 mg capsule 10 mg PO QID PRN Abdominal Pain 05/12/23 03/02/24 History metformin 500 mg tablet,extended 500 mg PO QDD 05/12/23 03/02/24 History release 24 hr nystatin 100,000 unit/gram topical 1 applic topical TID 05/12/23 03/02/24 History powder (Nyamyc) ondansetron HCl 8 mg tablet 8 mg PO Q8 PRN Nausea 05/12/23 03/02/24 History oxybutynin chloride 10 mg 10 mg PO QAM 05/12/23 03/02/24 History tablet,extended release 24 hr spironolactone 50 mg tablet 50 mg PO AMHS 05/12/23 03/02/24 History lactulose 10 gram/15 mL oral 45 ml PO BID 03/02/24 03/02/24 History solution semaglutide 2 mg/dose (8 mg/3 mL) 2 mg subcut .WEEKLY 03/02/24 03/02/24 History subcutaneous pen injector (Ozempic) Patient History Medical History Cardiac arrest pt states she was told she went into cardiac arrest during her hip surgery in 02/2022 at [facility] and was "revived". no other details were given. Palpitations occasionally -- pt states since her metoprolol has been decreased. Cough started about 8 months ago s/p covid-19 virus -- currently treating with augmentin PO bid and prednisone. prednisone to end 05/27/22 and abx to finish on 06/01/22 Hx of fall pt. fell in the bathroom at home, pt. wasn't aware of what happen but was told this by her family 02/05/2022 History of anesthesia reaction REMOTE HX, SIDE EFFECTS : ANXIETY AND SEVERE N/V History of COVID-19 may or june 2021, has cough since. SOB (shortness of breath) SINCE COVID -8 MON AGO, SOB, COUGH...NO DX...HAS VISIT WITH PULM UPCOMING TO EVALUATE Urinary incontinence UTI (urinary tract infection) FREQUENT/PREVENTATIVE ABX'S CURRENTLY MOST RECENT UTI JANUARY 04 - ABX COMPLETE - ON CURRENT PROPHYLACTIC TX Irregular heart beat follows Dr. 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 Lucas History of cardiac cath multiple - most recent - 2 years ago @ [facility] Family History Father Coronary heart disease Brother Coronary heart disease Father No problems noted. Mother No problems noted. Other No family history of adverse response to anesthesia Social History Smoking Status: Never smoker Tobacco Type: Cigarettes Second Hand Exposure: Yes; Do You Dip or Chew Tobacco: No; Hx Alcohol Use: No Hx Substance Use: No Preferred Language: Tajik Communication Ability: Impaired Visual Impairment: Partially Limited Hearing Ability: Hard of Hearing Stock Sorter Required: No Beliefs That Will Affect Care: Spiritual marital status: / Current Living Situation: Family Current Living Situation Comment: lives with dauhter and caregiver How many Children do You have: 3 Feels Safe at Home: Yes Diet: low carbohydrate and low salt caffeine: No Assistive Devices: Walker Review of Systems Review of Systems: All systems reviewed & are unremarkable except as noted in HPI & below Physical Exam Constitutional: WD/WN, vitals as above Eyes: no conjunctival abnormality ENMT: Ears: no hearing impairment and no external ear abnormality Mouth: no oropharynx abnormality Neck: trachea midline Respiratory: normal respiratory effort; no respiratory distress and no labored breathing Cardiovascular: Rate/Rhythm: regular rate and regular rhythm Gastrointestinal (Abdomen): Abdomen is soft and nontender. It is nondistended and nonrigid. There is no tenderness or guarding Musculoskeletal: No calf tenderness Skin: no rashes Neurologic: moves all extremities Genitourinary: Patient's suprapubic catheter is examined. The catheter did appear to have some concentrated urine in the tubing but was draining appropriately. The suprapubic insertion site appeared to be clean without any purulent drainage. There was a small amount of erythema surrounding the insertion site. Results & Data Vital Signs (Past 12 Hours) Vital Signs Temp Pulse Pulse Resp BP BP Pulse Ox 03/02/24 21:29 79 18 99/55 L 96 03/02/24 19:46 129 H 18 96/74 L 03/02/24 17:58 76 20 104/68 95 03/02/24 17:31 78 20 108/59 L 96 03/02/24 17:12 76 18 115/63 96 03/02/24 17:06 141 H 111/70 03/02/24 17:02 139 H 106/69 03/02/24 16:51 79 14 96 03/02/24 16:42 79 24 95 03/02/24 16:39 82 20 100/66 96 03/02/24 16:33 156 H 24 94 03/02/24 16:32 87 20 125/71 95 03/02/24 16:32 100 H 03/02/24 16:30 88 125/71 03/02/24 16:27 160 H 20 95 03/02/24 16:27 159 H 03/02/24 16:21 160 H 17 95 03/02/24 16:20 116/91 03/02/24 16:11 36.8 C 161 H 20 122/81 93 03/02/24 16:10 96 O2 Del Method 03/02/24 21:29 Room Air 03/02/24 19:46 Room Air 03/02/24 17:58 Room Air 03/02/24 17:31 Room Air 03/02/24 17:12 Room Air 03/02/24 17:06 03/02/24 17:02 03/02/24 16:51 03/02/24 16:42 03/02/24 16:39 Room Air 03/02/24 16:33 Room Air 03/02/24 16:32 Room Air 03/02/24 16:32 03/02/24 16:30 03/02/24 16:27 Room Air 03/02/24 16:27 03/02/24 16:21 Room Air 03/02/24 16:20 03/02/24 16:11 Room Air 03/02/24 16:10 Room Air PG Care Time/CCT Total # of Minutes Spent Total Time Spent with Patient: Total time spent is greater than 50% in coordination of care (as documented) at patient's floor/unit and/or counseling patient: Coding Level of Care Code 00284 INT INP/OBS CARE 3/75MIN Diagnoses Acute UTI N39.0
[2024-03-02] MEDS: ASCORBIC ACID 500 MG TAB PO SCH (23:27)
[2024-03-02] MEDS: HEPARIN SOD 5,000 UNIT/0.5 ML VIAL SQ SCH (23:28)
[2024-03-02] MEDS: GABAPENTIN 300 MG CAP PO SCH (23:28)
[2024-03-02] MEDS: LACTULOSE SYRUP 30 GM/45 ML UDP PO SCH (23:29)
[2024-03-02] MEDS: lamoTRIgine 25 MG TAB PO SCH (23:29)
[2024-03-02] MEDS: NYSTATIN POWDER 15GM BTL EXT SCH (23:31)
[2024-03-02] MEDS: rifAXIMin 550 MG TABLET PO SCH (23:31)
[2024-03-02] MEDS: traZODone HCL 100 MG TAB PO SCH (23:32)
[2024-03-02] MEDS: FLUTICASONE/VILANTEROL 100/25MCG 14 PUFFS/INHALER INH SCH (23:32)
[2024-03-02] MEDS: LANTUS PER UNIT CHARGE SQ SCH (23:46)
[2024-03-02] MEDS: clonazePAM 0.5 MG TAB PO PRN (23:47)
[2024-03-02] MEDS: INSULIN ASPART PER UNIT CHARGE SC SCH (23:47)
[2024-03-03] MEDS: PANTOprazole 40 MG TAB PO SCH (01:09)
[2024-03-03] MEDS: CEFEPIME 2,000 MG in SYRINGE 0 ML IV SCH (02:30)
[2024-03-03] MEDS: METOPROLOL TARTRATE 1 MG/ML VIAL IV PRN (03:24)
[2024-03-03] MEDS: LEVOTHYROXINE SODIUM 88 MCG TABLET PO SCH (06:24)
[2024-03-03 06:41] LABS: Hematocrit (blood only) 35.5 % (37.0-47.0); Hemoglobin 11.5 g/dl (12.0-16.0); Mean Corpuscular Hemoglobin 27.2 pg (25.0-34.0); Mean Corpuscular Hgb Conc 32.4 g/dL (32.0-36.0); Mean Corpuscular Volume 83.9 fL (80.0-100.0); Mean Platelet Volume 10.7 fL (9.4-12.4); Platelet Count 131 K/uL (130-400); RDW Coefficient of Variation 15.6 % (11.5-14.5); RDW Standard Deviation 47.2 fL (36.4-46.3); Red Blood Count 4.23 M/uL (4.20-5.40)
[2024-03-03 07:02] LABS: Calcium 8.1 mg/dl (8.6-10.3); Creatinine Clr Calc Pharmacy 65.7 ml/min; Est GFR (African American) 64.3 ml/min; Est GFR (Non-African American) 55.5 ml/min; Magnesium 2.5 mg/dl (1.7-2.4); Phosphorus 2.7 mg/dl (2.5-4.9)
[2024-03-03 07:12] LABS: Estimated Average Glucose 126 mg/dl
[2024-03-03] MEDS: MONTELUKAST SODIUM 10 MG TABLET PO SCH (07:51)
[2024-03-03] MEDS: OXYBUTYNIN CHLORIDE XL 5 MG TABCR PO SCH (07:51)
[2024-03-03] MEDS: METOPROLOL SUCC 25MG EXT REL TAB PO SCH (07:51)
[2024-03-03] MEDS: ASPIRIN 81 MG ECTAB PO SCH (07:52)
[2024-03-03] MEDS: TAMSULOSIN HCL 0.4 MG CAP PO SCH (07:52)
[2024-03-03] MEDS: lamoTRIgine 25 MG TAB PO SCH (07:52)
[2024-03-03] MEDS: VENLAFAXINE HCL XR 150 MG CAPXR PO SCH (07:52)
[2024-03-03] MEDS: FAMOTIDINE 40 MG TABLET PO SCH (07:52)
[2024-03-03] MEDS: ATORVASTATIN 40 MG TAB PO SCH (07:52)
[2024-03-03] MEDS: lamoTRIgine 100 MG TAB PO SCH (07:52)
[2024-03-03] MEDS: VENLAFAXINE HCL XR 75 MG CAPXR PO SCH (07:52)
[2024-03-03] MEDS: ARIPIprazole 1 MG/ML ORAL SOLN 150 ML BTL PO SCH (07:53)
[2024-03-03] MEDS: DOXYCYCLINE HYCLATE 100 MG CAP PO SCH (07:54)
--- OUTSIDE RECORDS SUMMARY | 2024-03-03 07:58 | External Medical Summary | Summary of Care ---
Author Name Unknown Organization [facility] Address [address] [place] [address] Phone [phone] Care Team Providers Care Mortgage Operations Manager Name Role Phone Carmen Sifuentes MD Primary Care Provider [phone] Encounter Details Date Type Department Care Team (Late st Contact Info) Description 02/23/2024 3:00 PM EDT Office Visit Urology, [facility] [address] [place] [address] Alfredo Panda MD [address] [place] [id number] Suprapubic catheter (HCC)*; Urge incontinence; Pelvic pain; Acute cystitis without hematuria; Recurrent UTI Allergies Active Allergy Reactions Criticality Noted Date Comments Propoxyphene Hcl Rash Low 10/29/2010 Fentanyl Diarrhea Low 04/26/2010 anxiety Methocarbamol Medium 10/05/2020 Other reaction(s): Delirium Methocarbamol Low 04/15/2007 Zolpidem Low 10/05/2020 Other reaction(s): Confusion documented as of this encounter (statuses as of 02/23/2024) Medications Medication Sig Dispensed Refills Start Date End Date Status venlafaxine XR (EFFEXOR XR) 150 MG [id number]:Dep ression Take 1 Cap by mouth daily. [...] Use as directed once daily 1 Kit 11/18/2017 Active Blood Glucose Monitoring Suppl (Taste Kitchen VERIO) w/Device KIT Use as directed. Use as directed. 1 Kit 10/31/2018 Active Spacer/Aero-Holding Chambers WISAM Use with inhaler. Wheezing/bronchitis . 1 Device 04/08/2019 Active Lancet Devices (Joule UnlimitedTOUCH DELICA LANCING DEV) MISC Use four times a day Dx: E11.4 1 Each 09/30/2019 Active venlafaxine XR (EFFEXOR XR) 75 MG CP24 Take 1 Capsule by mouth in the morning. With 150mg tablet. Active traZODone (DESYREL) 50 MG Tablet Take 2 Tablets by mouth at bedtime. 30 Tab 5 10/15/2019 Active Aspirin EC 81 MG Oral Tablet Delayed Release Take 1 Tablet by mouth in the morning. 03/27/2020 Active Fluticasone Propionate 50 MCG/ACT Nasal SuspensionIndicatio ns:PND (post-nasal drip) Administer 2 Sprays into each nostril daily. 9.9 mL 1 11/11/2020 Active Lactulose 10 GM/15ML Oral Solution (Constulose)Indicat ions:Chronic liver disease and cirrhosis (HCC) TAKE 45 ML BY MOUTH TWICE DAILY DIRECTED 2700 mL 5 10/04/2021 Active Additional Information Patient taking differently: TID(AM/NOON/HS), Reported on 03/03/2023 lamoTRIgine 100 MG Oral Tablet (LaMICtal) Take 1 Tablet by mouth every morning. 30 Tablet 5 03/12/2022 Active AIRS Disposable Nebulizer Kit Use as directed 1 Kit 07/17/2022 Active lamoTRIgine 25 MG Oral Tablet (LaMICtal) 1 Tablet. Taking 2 at bedtime and 1 in morning 09/08/2022 Active Albuterol Sulfate HFA 108 (90 Base) MCG/ACT Inhalation Aerosol SolutionIndications :Cough Use two puffs four times a day, as directed 18 g 3 11/07/2022 Active Dicyclomine HCl 10 MG Oral Capsule (Bentyl)Indications :Abdominal pain TAKE ONE CAPSULE BY MOUTH FOUR TIMES DAILY NEEDED FOR ABDOMINAL PAIN 120 Capsule 3 12/08/2022 Active Budesonide-Formoter ol Fumarate 160-4.5 MCG/ACT Inhalation Aerosol (Symbicort) Inhale 2 Puffs by mouth in the morning and 2 Puffs before bedtime. 10.2 g 12 03/24/2023 Active Atorvastatin Calcium 40 MG Oral Tablet (Lipitor)Indication s:Dyslipidemia, goal LDL below 70 TAKE ONE TABLET BY MOUTH EVERY MORNING 90 Tablet 2 05/15/2023 Active Ipratropium-Albuter ol 0.5-2.5 (3) MG/3ML Inhalation Solution (Duoneb) Inhale 3 mL via nebulizer in the morning and 3 mL at noon and 3 mL in the evening and 3 mL before bedtime. 360 mL 3 05/28/2023 Active Zoster Vac Recomb Adjuvanted 50 MCG/0.5ML Intramuscular Suspension Reconstituted (Shingrix) Inject 0.5 mL into a large muscle now and repeat dose in 60 to 180 days 1 Each 1 06/17/2023 Active Additional Information Patient not taking.Reported on 11/18/2023 MEDICAL INSTRUCTIONS Please arrange for as needed Home nursing home visit for obtaining straight cath urine sample for 06/25/23. 1 Each 1 06/24/2023 Active Famotidine 40 MG Oral Tablet (Pepcid)Indications :Gastroesophageal reflux disease with esophagitis without hemorrhage TAKE 1 TABLET BY MOUTH EVERY MORNING 90 Tablet 3 07/19/2023 Active OneTouch Verio In Vitro Strip (Glucose Blood)Indications:T ype 2 diabetes mellitus with diabetic neuropathy, with long-term current use of insulin (HCC) use to test blood sugar 3 times daily 300 Strip 1 07/21/2023 Active OneTouch Delica Lancets 33G USE UP TO FOUR TIMES A DAY Dx:E11.4 360 Each 5 07/30/2023 Active Vitamin C 500 MG Oral Tablet (Ascorbic Acid)Indications:Re current UTI TAKE 1 TABLET BY MOUTH TWICE DAILY every morning and before bedtime 180 Tablet 3 08/13/2023 Active Estradiol 0.1 MG/GM Vaginal Cream (Estrace) Apply pea sized amount (0.5 gm) vaginally every other night 42.5 g 3 08/20/2023 Active Additional Information Patient not taking.Reported on 01/20/2024 Levothyroxine Sodium 88 MCG Oral Tablet (Levoxyl)Indication s:Hypothyroidism TAKE 1 TABLET BY MOUTH ONCE DAILY AT LEAST 30 MINUTES BEFORE BREAKFAST AND OTHER MEDICATIONS 90 Tablet 1 09/08/2023 Active PEG 3350 17 GM/SCOOP Oral Powder DISSOLVE ONE HEAPING TABLESPOON IN 8 OZ OF WATER OR JUICE DAILY NEEDED FOR CONSTIPATION. 510 g 5 09/22/2023 Active Spironolactone 50 MG Oral Tablet (Aldactone)Indicati ons:GONZALEZ (nonalcoholic steatohepatitis),Po rtal hypertension (HCC),Chronic liver disease and cirrhosis (HCC),Portal hypertensive gastropathy (HCC) TAKE ONE TABLET BY MOUTH IN THE MORNING AND ONE TABLET BEFORE BEDTIME 180 Tablet 1 10/07/2023 Active Gabapentin 300 MG Oral Capsule (Neurontin)Indicati ons:Lumbar spondylosis TAKE 1 CAPSULE BY MOUTH TWICE DAILY 60 Capsule 5 10/14/2023 Active Nitroglycerin 0.4 MG Sublingual Tablet Sublingual (Nitrostat)Indicati ons:Chronic coronary artery disease Place 1 Tablet under the tongue every 5 minutes as needed for Pain, Chest. Max dose 3 tablets in 15 minutes 25 Tablet 5 10/16/2023 Active Nystatin 954021 UNIT/GM External Powder (Nystop)Indications :Candidal intertrigo Apply topically to affected area 3 times a day. Apply to right breast until rash resolved. 30 g 10/16/2023 Active Nystatin 116001 UNIT/ML Mouth/Throat Suspension SWISH AND SWALLOW 5ML IN THE MORNING AND 5ML AT NOON AND 5 ML IN THE EVENING AND 5ML BEFORE BEDTIME, FOR THRUSH 240 mL 1 10/16/2023 Active Metoprolol Succinate ER 25 MG Oral Tablet Extended Release 24 Hour (toPROL XL)Indications:HTN, goal below 130/80 TAKE 1 TABLET BY MOUTH EVERY MORNING 90 Tablet 10/25/2023 Active Vitamin D (Ergocalciferol) 1.25 MG (19680 UT) Oral Capsule (Drisdol)Indication s:Vitamin D deficiency TAKE 1 CAPSULE BY MOUTH ONCE WEEKLY 12 Capsule 3 11/10/2023 Active Insulin Glargine Solostar 100 UNIT/ML Subcutaneous Solution Pen-injector (Lantus SoloStar)Indication s:Type 2 diabetes mellitus with stage 3a chronic kidney disease, with long-term current use of insulin (HCC) Inject 35 units subcutaneously twice per day 30 mL 11 11/18/2023 Active ARIPiprazole 5 MG Oral Tablet (Abilify) Take 1 Tablet by mouth in the morning. 11/17/2023 Active Excedrin Migraine 250-250-65 MG Oral Tablet (Aspirin-Acetaminop hen-Caffeine 250-250-65 mg per tab) Take 1 Tablet by mouth every 6 hours as needed. Active Acetaminophen 500 MG Oral Tablet (Tylenol) Take 1 Tablet by mouth every 6 hours as needed. Active guaiFENesin ER 600 MG Oral Tablet Extended Release 12 Hour (Mucinex) Take 1 Tablet by mouth in the morning and 1 Tablet before bedtime. Active Cefdinir 300 MG Oral Capsule (Omnicef) Take 1 Capsule by mouth in the morning and 1 Capsule before bedtime. 30 Capsule 11/26/2023 Active Additional Information Patient not taking.Reported on 02/02/2024 oxyBUTYnin Chloride ER 10 MG Oral Tablet Extended Release 24 Hour (Ditropan XL) TAKE 1 TABLET BY MOUTH EVERY MORNING 90 Tablet 3 12/04/2023 Active Montelukast Sodium 10 MG Oral Tablet (Singulair)Indicati ons:Nasal sinus congestion,PND (post-nasal drip) TAKE 1 TABLET BY MOUTH ONCE DAILY 90 Tablet 3 12/12/2023 Active Potassium Chloride Mag ER 20 MEQ Oral Tablet Extended Release TAKE ONE TABLET BY MOUTH EVERY MORNING WHEN TAKING ADDITIONAL TORSEMIDE 90 Tablet 1 12/19/2023 Active metFORMIN HCl ER 500 MG Oral Tablet Extended Release 24 Hour (Glucophage XR) TAKE 1 TABLET BY MOUTH ONCE DAILY with dinner 90 Tablet 3 12/23/2023 Active BD Pen Needle Mini U/F 31G X 5 MM (Insulin Pen Needle) use twice a day 200 Each 2 12/23/2023 Active oxyCODONE-Acetamino phen 5-325 MG Oral Tablet (Percocet) Take 1 Tablet by mouth every 8 hours as needed for Pain, Severe. 8 Tablet 12/31/2023 Active Cefdinir 300 MG Oral Capsule (Omnicef) Take 1 Capsule by mouth in the morning and 1 Capsule before bedtime. 10 Capsule 01/01/2024 Active Additional Information Patient not taking.Reported on 02/02/2024 Ozempic (2 MG/DOSE) 8 MG/3ML Subcutaneous Solution Pen-injector (Semaglutide (2 MG/DOSE))Indication s:Type 2 diabetes mellitus with diabetic neuropathy, with long-term current use of insulin (HCC) Inject 2 mg subcutaneous once per week 3 mL 5 01/01/2024 Active Torsemide 20 MG Oral Tablet (Demadex)Indication s:Atherosclerotic heart disease of [place] coronary artery with other forms of angina pectoris (HCC),Hypertensive heart disease with chronic diastolic congestive heart failure (HCC) TAKE 1 TABLET BY MOUTH EVERY MORNING. MAY TAKE 1 ADDITIONAL TABLET NEEDED FOR SWELLING. 90 Tablet 1 01/06/2024 Active Tamsulosin HCl 0.4 MG Oral Capsule (Flomax) TAKE 1 CAPSULE BY MOUTH EVERY MORNING 90 Capsule 01/12/2024 Active Xifaxan 550 MG Oral Tablet (rifAXIMin)Indicati ons:GONZALEZ (nonalcoholic steatohepatitis),Ch ronic liver disease and cirrhosis (HCC),Hepatic encephalopathy (HCC) take 1 tablet by mouth twice daily 60 Tablet 5 01/26/2024 Active Ondansetron HCl 8 MG Oral Tablet (Zofran)Indications :Nausea TAKE 1 TABLET BY MOUTH EVERY 8 HOURS NEEDED FOR NAUSEA 60 Tablet 01/28/2024 Active Pantoprazole Sodium 40 MG Oral Tablet Delayed Release (Protonix)Indicatio ns:Gastroesophageal reflux disease without esophagitis TAKE 1 TABLET BY MOUTH TWICE DAILY every morning and every evening 180 Tablet 1 02/09/2024 Active clonazePAM 0.5 MG Oral Tablet (KlonoPIN)Indicatio ns:Bipolar I disorder, most recent episode depressed, moderate (HCC) TAKE ONE TABLET BY MOUTH THREE TIMES DAILY 90 Tablet 02/19/2024 Active documented as of this encounter (statuses as of 02/23/2024) Active Problems Problem Noted Date Diagnosed Date Suprapubic catheter 02/09/2024 Chronic kidney disease, stage 3a 11/17/2023 Overview: Per CKD protocol COPD, group B, by GOLD 2017 classification 11/16 Overview: Per COPD GOLD Classification Last Assessment & Plan: "RED FLAG" COPD symptoms: Increased shortness of breath at rest ("I struggle to breathe even when watching TV", "I have to wear or turn up my oxygen just when I'm sitting on the couch") Cough ("I get a different kind of cough than what I' have every day") Wheezing ("You can hear the whistling across the room") Medication Regimen Class D, Asthma/COPD Overlap - Inhaled Glucocorticoid-LABA Combination Inhaler Remote Patient Monitoring Vendor: No Connected RPM Device(s): No current devices Self-Management plan High frequency nebulizer treatments every 4-6 hours around the clock Exacerbation plan Solumedrol 40mg IM/IV Chest Xray Additional Comments: Breathing stable today Allergic rhinitis 11/11/2023 Medical home patient encounter 01/06/2023 Hypertensive heart and kidne y disease with chronic diastolic congestive heart failure and stage 3a chronic kidney disease 12/28/2021 Last Assessment & Plan: "RED FLAG" HF Symptoms: Leg Swelling Increased dyspnea on exertion Medication Regimen: Beta Debra Therapy: Metoprolol Succinate (ER) MADELINE Inhibitor/ARB Therapy: No MADELINE/ARB/ARNI secondary to: unknown Diuretic therapy: Torsemide SGLT2 Inhibitor: No Current SGLT2 (Describe in the Comments) Remote Patient Monitoring Vendor: No Connected RPM Device(s): Traditional Scale Traditional BP Cuff Self - Management Plan Double dose of Torsemide for 3 days Exacerbation Plan Anticipated IV Lasix dose: 100 mg BMP Additional Comments: Euvolemic today Coronary artery disease invo lving ek[place] coronary artery of [place] heart without angina pectoris 11/15/2021 Last Assessment & Plan: Stable. No angina -continue toprol, ASA and statin Seasonal allergies 11/15/2021 Type 2 diabetes mellitus wit h diabetic neuropathy, with long-term current use of insulin 08/27/2021 Last Assessment & Plan: BS stable Last HgbA1C 7 12/26 -continue trulicity, lantus 30 u BID Type 2 diabetes mellitus wit h stage 3a chronic kidney disease, with long-term current use of insulin 08/27/2021 Last Assessment & Plan: "RED FLAG" Diabetic symptoms: Excessive Thirst, Confusion, and Vision Changes Goal HgbA1c <8 Diabetic Complications Vascular (examples: PVD, PAD, CAD, CVA) Renal (example: CKD, Proteinuria, Dialysis) Medication Regimen Metformin Basal/Long Acting Insulin GLP-1 Agonist (ex: Victoza, Trulicity, Ozempic) DM Secondary Prevention Moderate-High Intensity Statin Additional Comments Hemoglobin AIC Results: Lab Results Component Value Date/Time HEMOGLOBIN A1C - [facility] 5.5 06/17/2023 12:33 PM HEMOGLOBIN A1C - [facility] 6.3 (H) 10/23/2022 10:46 AM HEMOGLOBIN A1C - [facility] 5.6 04/25/2022 04:45 PM HEMOGLOBIN A1C - [facility] 5.9 (H) 05/22/2020 01:24 PM HEMOGLOBIN A1C - [facility] 6.1 (H) 12/14/2019 01:10 PM HEMOGLOBIN A1C - [facility] 6.3 (H) 02/18/2019 02:55 PM Urge incontinence 03/27/2021 terminal clerk (current) use of insulin 09/29/2019 Diabetic gastroparesis 04/28/2019 Hypertensive heart disease w ith chronic diastolic congestive heart failure 05/06/2018 Fatty liver 05/06/2018 Chronic liver disease and cirrhosis 05/06/2018 Last Assessment & Plan: Followed by GI Reports compliance with lactulose. Stable today --spironolactone 50mg daily Portal hypertensive gastropathy 05/06/2018 Last Assessment & Plan: Followed by GI Endoscopy planned 01/16/22 Moderate aortic stenosis 05/06/2018 Anxiety 08/05/2017 Blqaicm-Clxhk-Qyqmh disease 06/27/2015 Last Assessment & Plan: Frequent falls Home PT and OT continue MEDICATION USE AGREEMENT 01/17/2015 Overview: Signed 01/04/2015 HTN, goal below 130/80 09/06/2014 Bipolar I disorder, most recent episode depresse d, moderate 06/09/2012 Last Assessment & Plan: Follows with Dr CHARLES, psychiatry Continue abilify, effexor, trazodone, and lamictal Hypothyroidism 02/15/2011 Dyslipidemia, goal LDL below 70 02/12/2011 S/P angioplasty with stent 02/01/2010 Gastroesophageal reflux disease without esophagi tis 05/04/2004 Overview: Updated due to amp error PERONEAL MUSCLE ATROPHY 12/31/2002 GONZALEZ (nonalcoholic steatohepatitis) documented as of this encounter (statuses as of 02/23/2024) Resolved Problems Problem Noted Date Diagnosed Date Resolved Date Chronic obstructive pulmonary disease 10/23/2023 11/19/2023 Overview: Per COPD GOLD Classification Food insecurity 06/16/2023 02/19/2024 Overview: Per [facility] Protocol Transient alteration of awareness 05/12/2023 05/12/2023 Open wound of left heel 03/12/202208/2022 Last Assessment & Plan: Pressure ulcer -off loading. Use waffle boots. Keep clean and dry -wound care referral Other chronic pain 12/31/2021 Last Assessment & Plan: Chronic pain medication managed by pcp --gabapentin 300mg BID --morphine 15mg q 12hrs --Oxy IR 1 tab every 8 hours prn Recurrent UTI 10/07/2021 02/03/2024 Last Assessment & Plan: Followed by urology Pt is supposed to be on methenamine--will need to clarify with dgt that she is giving this. 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-assistant finance manager and ID Acute cystitis without hematuria 03/27/2021 07/08/2022 Pelvic pain 03/27/2021 02/03/2024 Type 2 diabetes mellitus wit h diabetic neuropathy 09/07/2018 11/07/2023 Overview: duplicate Mild protein-calorie malnutrition 05/07/2018 04/29/2019 Diabetes mellitus with neuropathy 05/06/2018 09/07/2018 Other cirrhosis of liver 05/06/2018 Atherosclerotic heart diseas e of [place] coronary artery with other forms of angina pectoris 05/06/2018 08/27/2021 Thrombocytopenia 05/06/2018 02/09/2021 Portal hypertension 05/06/2018 08/28/19 Hepatic encephalopathy 05/06/201808/27 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/2014 terminal clerk current use of ant icoagulant therapy 06/17/2006 [...] as of this encounter (statuses as of 02/23/2024) Immunizations Name Administration Dates Next Due COVID-19 mRNA, LNP-s, No Pre serve, 2-Dose Series (Moderna) 06/10/2021,08/29/2020,08/01/2020 Pneumococcal Conjugate Vacc, 13 Valent (Prevnar) 02/14/2017 Pneumococcal Polysaccharide PPV23 (Pneumovax) 02/06/2016,06/26/2011,06/04/2006,06/26 Season Influenza, Quad, PF, Adjuvanted, 65+ Yrs, IM (FLUAD) 05/22/2020 Seasonal Influenza Virus Vac cine, Unspecified Formulation 03/14/2022,04/10/2021,05/22/2020,04/12,05/08/2018,07/16/2017,03/21/2015 ,04/28/2013,04/09/2012,06/11/2011,03/08,04/10/2009,04/06/2008, 7,06/04/2006 Seasonal Influenza, PF, 6 M & above, IM , (FluLaval or Fluzone) 04/12/2019,05/08/2018,07/16/2017 Seasonal Influenza, Quadriva lent Hd (Fluzone Hd) 06/17/2023,03/14/2022,04/10/2021 Seasonal Influenza, Split, I IV3, With Preserve, [...] pur e alcohol) PHQ-2 Answer Date Recorded PHQ Adult Total Score 2 11/24/2023 Hunger Vital Sign Answer Date Recorded Within the past 12 months, y ou worried that your food would run out before you got the money to buy more. Never true 01/20/20 24 Within the past 12 months, t he food you bought just didn't last and you didn't have money to get more. Never true 01/20/2024 Childcare Answer Date Recorded Do you feel overwhelmed with taking care of a child, family member or friend? No 01/20/2024 Does your family need help f inding childcare? (Household - for ages 0-17 years) Not on file 01/20/2024 Clothing Answer Date Recorded Have you been unable to get clothing when it was really needed? No 01/20/2024 Is your family able to get c lothes or diapers when needed? (Household - for ages 0-17 years) Not on file 01/20/2024 Personal Safety Answer Date Recorded Do you feel unsafe or have concerns for your saf ety? No 01/20/2024 Do you have concerns for you r family's safety? (Household - for ages 0-17 years) Not on file 01/20/2024 Utilities Answer Date Recorded Do you have trouble paying y our heating, water, or electric bill? No 01/20/2024 Is your family able to pay t he heat, water, or electric bill? (Household - for ages 0-17 years) Not on file 01/20/2024 Does your family have access to good internet? (Household - for ages 0-17 years) Not on file 01/20/2024 Employment Status Answer Date Recorded Are you unemployed or without regular income? Ye s 01/20/2024 Does the household have a re gular source of income? (Household - for ages 0-17 years) Not on file 01/20/2024 Social Connections Answer Date Recorded How often do you feel lonely or isolated from th ose around you? Never 01/20/2024 Financial Resource Strain Answer Date R ecorded Do you have any trouble payi ng for your medications, or do you think you might in the future? No 01/20/2024 Does your family have troubl e paying for medicine? (Household - for ages 0-17 years) Not on file 01/20/2024 Transportation Needs Answer Date Record ed READ ONLY Do you have troubl e getting a ride to medical visits or work? Never True 01/20/2024 Does your family have a hard time getting a ride to doctors visits? (Household - for ages 0-17 years) Not on file 01/20/2024 Has lack of transportation k ept you from medical appointments, meetings, work, or from getting things needed for daily living? Check all that apply. No 01/20/2024 Do you (or your family) have trouble finding or paying for a ride (transportation)? (Household - for ages 0-17 years) Not on file 01/20/2024 Housing Stability Answer Date Recorded Do you currently live in a s helter or have no steady place to sleep at night? No 01/20/2024 READ ONLY Do you think you a re at risk of becoming homeless? No 01/20/2024 Does your family worry about paying for your home or becoming homeless? (Household - for ages 0-17 years) Not on file 0 01/20/2024 Are you homeless or worried that you might be in the future? No 01/20/2024 Are you (or your family) johan eless or worried that you might be in the future? (Household - for ages 0-17 years) Not on file Food Insecurity Answer Date Recorded Do you need food for this week? No 01/20/2024 Are you able to get enough f ood for your family? (Household - for ages 0-17 years) Not on file 01/20/2024 Does your family need food t his week? (Household - for ages 0-17 years) Not on file 01/20/2024 Do you always have enough fo od for your family? (Household - for ages 0-17 years) Not on file 01/20/2024 Sex and Gender Information Value Date Recorded Sex Assigned at Female 11/04/2018 4:56 PM EDT Gender Identity Female 11/04/2018 4:56 PM EDT Sexual Orientation Straight 11/04/2018 4: 56 PM EDT Job Start Date Occupation Industry Not on file Not on file Not on file documented as of this encounter Progress Notes * Alfredo Panda MD - 02/23/2024 3:00 PM EDT [id number] PCP: CARMEN SIFUENTES [address] [place] [address] Angelina Ballard is a 73 year old female, who presents for exchange of SPT 2 months after placement. She notes occasional leakage through urethra. She denies antibiotic therapy recently. Urinary Incontinence: Patient is being seen for urinary incontinence. Problem has been present for years. Severity is moderate. Problem is getting better. Urinary incontinence is urge incontinence. They were using 10-15 pads a day. They have used oxybutynin in the past, stopped. Trial of Myrbetriq provided without improvement. Suprapubic tube placed January of 2024. Recurrent UTI: Presented to Urology March 2021. On prophylactic Macrobid. Cystoscopy Oct 2021. Previously treated with fosfomycin. Renal US Apr 2021: IMPRESSION: Current Outpatient Medications Medication Sig Dispense Refill venlafaxine XR (EFFEXOR XR) 150 MG CP24 Take 1 Cap by mouth daily. With food. (Patient taking differently: Take 225 mg by mouth in the morning. Taking a total of 225 mg.) 30 Cap 5 Blood Glucose Monitoring Suppl (D-CARE GLUCOMETER) w/Device KIT Use as directed. Use as directed once daily 1 Kit 0 Blood Glucose Monitoring Suppl (Taste Kitchen VERIO) w/Device KIT Use as directed. Use as directed. 1 Kit 0 Spacer/Aero-Holding Chambers WISAM Use with inhaler. Wheezing/bronchitis. 1 Device 0 Lancet Devices (ZhihuUCH DELICA LANCING DEV) MISC Use four times a day Dx: E11.4 1 Each 0 venlafaxine XR (EFFEXOR XR) 75 MG CP24 Take 1 Capsule by mouth in the morning. With 150mg tablet. traZODone (DESYREL) 50 MG Tablet Take 2 Tablets by mouth at bedtime. 30 Tab 5 Aspirin EC 81 MG Oral Tablet Delayed Release Take 1 Tablet by mouth in the morning. Fluticasone Propionate 50 MCG/ACT Nasal Suspension Administer 2 Sprays into each nostril daily. 9.9mL 1 Lactulose 10 GM/15ML Oral Solution (Constulose) TAKE 45 ML BY MOUTH TWICE DAILY DIRECTED (Patient taking differently: 3 times a day.) 2700 mL 5 lamoTRIgine 100 MG Oral Tablet (LaMICtal) Take 1 Tablet by mouth every morning. 30 Tablet 5 AIRS Disposable Nebulizer Kit Use as directed 1 Kit 0 lamoTRIgine 25 MG Oral Tablet (LaMICtal) 1 Tablet. Taking 2 at bedtime and 1 in morning Albuterol Sulfate HFA 108 (90 Base) MCG/ACT Inhalation Aerosol Solution Use two puffs four times a day, as directed 18 g 3 Dicyclomine HCl 10 MG Oral Capsule (Bentyl) TAKE ONE CAPSULE BY MOUTH FOUR TIMES DAILY NEEDED FOR ABDOMINAL PAIN 120 Capsule 3 Budesonide-Formoterol Fumarate 160-4.5 MCG/ACT Inhalation Aerosol (Symbicort) Inhale 2 Puffs by mouth in the morning and 2 Puffs before bedtime. 10.2 g 12 Atorvastatin Calcium 40 MG Oral Tablet (Lipitor) TAKE ONE TABLET BY MOUTH EVERY MORNING 90 Tablet 2 Ipratropium-Albuterol 0.5-2.5 (3) MG/3ML Inhalation Solution (Duoneb) Inhale 3 mL via nebulizer in the morning and 3 mL at noon and 3 mL in the evening and 3 mL before bedtime. 360 mL 3 Zoster Vac Recomb Adjuvanted 50 MCG/0.5ML Intramuscular Suspension Reconstituted (Shingrix) Inject 0.5 mL into a large muscle now and repeat dose in 60 to 180 days (Patient not taking: Reported on 11/18/2023) 1 Each 1 MEDICAL INSTRUCTIONS Please arrange for as needed Home nursing home visit for obtaining straightcath urine sample for 06/25/23. 1 Each 1 Famotidine 40 MG Oral Tablet (Pepcid) TAKE 1 TABLET BY MOUTH EVERY MORNING 90 Tablet 3 OneTouch Verio In Vitro Strip (Glucose Blood) use to test blood sugar 3 times daily 300 Strip 1 OneTouch Delica Lancets 33G USE UP TO FOUR TIMES A DAY Dx:E11.4 360 Each 5 Vitamin C 500 MG Oral Tablet (Ascorbic Acid) TAKE 1 TABLET BY MOUTH TWICE DAILY every morning and before bedtime 180 Tablet 3 Estradiol 0.1 MG/GM Vaginal Cream (Estrace) Apply pea sized amount (0.5 gm) vaginally every other night (Patient not taking: Reported on 01/20/2024) 42.5 g 3 Levothyroxine Sodium 88 MCG Oral Tablet (Levoxyl) TAKE 1 TABLET BY MOUTH ONCE DAILY AT LEAST 30 MINUTES BEFORE BREAKFAST AND OTHER MEDICATIONS 90 Tablet 1 PEG 3350 17 GM/SCOOP Oral Powder DISSOLVE ONE HEAPING TABLESPOON IN 8 OZ OF WATER OR JUICE DAILY ASNEEDED FOR CONSTIPATION. 510 g 5 Spironolactone 50 MG Oral Tablet (Aldactone) TAKE ONE TABLET BY MOUTH IN THE MORNING AND ONE TABLETBEFORE BEDTIME 180 Tablet 1 Gabapentin 300 MG Oral Capsule (Neurontin) TAKE 1 CAPSULE BY MOUTH TWICE DAILY 60 Capsule 5 Nitroglycerin 0.4 MG Sublingual Tablet Sublingual (Nitrostat) Place 1 Tablet under the tongue every5 minutes as needed for Pain, Chest. Max dose 3 tablets in 15 minutes 25 Tablet 5 Nystatin 500964 UNIT/GM External Powder (Nystop) Apply topically to affected area 3 times a day. Apply to right breast until rash resolved. 30 g 0 Nystatin 647043 UNIT/ML Mouth/Throat Suspension SWISH AND SWALLOW 5ML IN THE MORNING AND 5ML AT NOON AND 5 ML IN THE EVENING AND 5ML BEFORE BEDTIME, FOR THRUSH 240 mL 1 Metoprolol Succinate ER 25 MG Oral Tablet Extended Release 24 Hour (toPROL XL) TAKE 1 TABLET BY MOUTH EVERY MORNING 90 Tablet 0 Vitamin D (Ergocalciferol) 1.25 MG (91924 UT) Oral Capsule (Drisdol) TAKE 1 CAPSULE BY MOUTH ONCE WEEKLY 12 Capsule 3 Insulin Glargine Solostar 100 UNIT/ML Subcutaneous Solution Pen-injector (Lantus SoloStar) Inject 35 units subcutaneously twice per day 30 mL 11 ARIPiprazole 5 MG Oral Tablet (Abilify) Take 1 Tablet by mouth in the morning. Excedrin Migraine 250-250-65 MG Oral Tablet (Dhhppfm-Pojtzpalcxnaa-Ppbvbfyc 250-250-65 mg per tab) Take 1 Tablet by mouth every 6 hours as needed. Acetaminophen 500 MG Oral Tablet (Tylenol) Take 1 Tablet by mouth every 6 hours as needed. guaiFENesin ER 600 MG Oral Tablet Extended Release 12 Hour (Mucinex) Take 1 Tablet by mouth in the morning and 1 Tablet before bedtime. Cefdinir 300 MG Oral Capsule (Omnicef) Take 1 Capsule by mouth in the morning and 1 Capsule before bedtime. (Patient not taking: Reported on 02/02/2024) 30 Capsule 0 oxyBUTYnin Chloride ER 10 MG Oral Tablet Extended Release 24 Hour (Ditropan XL) TAKE 1 TABLET BY MOUTH EVERY MORNING 90 Tablet 3 Montelukast Sodium 10 MG Oral Tablet (Singulair) TAKE 1 TABLET BY MOUTH ONCE DAILY 90 Tablet 3 Potassium Chloride Mag ER 20 MEQ Oral Tablet Extended Release TAKE ONE TABLET BY MOUTH EVERY MORNING WHEN TAKING ADDITIONAL TORSEMIDE 90 Tablet 1 metFORMIN HCl ER 500 MG Oral Tablet Extended Release 24 Hour (Glucophage XR) TAKE 1 TABLET BY MOUTHONCE DAILY with dinner 90 Tablet 3 BD Pen Needle Mini U/F 31G X 5 MM (Insulin Pen Needle) use twice a day 200 Each 2 oxyCODONE-Acetaminophen 5-325 MG Oral Tablet (Percocet) Take 1 Tablet by mouth every 8 hours as needed for Pain, Severe. 8 Tablet 0 Cefdinir 300 MG Oral Capsule (Omnicef) Take 1 Capsule by mouth in the morning and 1 Capsule before bedtime. (Patient not taking: Reported on 02/02/2024) 10 Capsule 0 Ozempic (2 MG/DOSE) 8 MG/3ML Subcutaneous Solution Pen-injector (Semaglutide (2 MG/DOSE)) Inject 2 mg subcutaneous once per week 3 mL 5 Torsemide 20 MG Oral Tablet (Demadex) TAKE 1 TABLET BY MOUTH EVERY MORNING. MAY TAKE 1 ADDITIONAL TABLET NEEDED FOR SWELLING. 90 Tablet 1 Tamsulosin HCl 0.4 MG Oral Capsule (Flomax) TAKE 1 CAPSULE BY MOUTH EVERY MORNING 90 Capsule 0 Xifaxan 550 MG Oral Tablet (rifAXIMin) take 1 tablet by mouth twice daily 60 Tablet 5 Ondansetron HCl 8 MG Oral Tablet (Zofran) TAKE 1 TABLET BY MOUTH EVERY 8 HOURS NEEDED FOR [id number] Tablet 5 Pantoprazole Sodium 40 MG Oral Tablet Delayed Release (Protonix) TAKE 1 TABLET BY MOUTH TWICE DAILYevery morning and every evening 180 Tablet 1 clonazePAM 0.5 MG Oral Tablet (KlonoPIN) TAKE ONE TABLET BY MOUTH THREE TIMES DAILY 90 Tablet 0 No current facility-administered medications for this visit. Review of patient's allergies indicates: Allergen Reactions Methocarbamol Other reaction(s): Delirium Darvon [Propoxyphene Hcl] Rash Fentanyl Diarrhea anxiety Robaxin [Methocarbamol] Zolpidem Other reaction(s): Confusion Social History: Social History Tobacco Use Smoking status: Never Passive exposure: Past Smokeless tobacco: Never Tobacco comments: Parents and then smoked Substance Use Topics Alcohol use: No Vaping/E-Cigarette Use Vaping/E-Cigarette Use Never User Vaping/E-Cigarette Substances Vaping/E-Cigarette Devices Past Surgical History: Procedure Laterality Date ANESTHESIA, HEART CATHETERIZATION 06/04/12 at [facility] ARTHROPLASTY KNEE TOTAL right CABG, ARTERIAL, SINGLE 02/15/2011 CORONARY ARTERY BYPASS GRAFT USING ARTERY 1 GRAFT performed by TIERNEY GUERRERO at [facility] CATHETERIZE LEFT HEART THRU SKIN 04/11/2009 LEFT HEART CATH, PERCUTANEOUS performed [place] GINGER FISHER [place] [facility] [place] LEFT HEART THRU SKIN 02/01/2010 LEFT HEART CATH, PERCUTANEOUS performed by ALTHEA KWON at [facility] [place]TER[place] LEFT HEART THRU SKIN 04/03/2010 LEFT HEART CATH, PERCUTANEOUS performed by GARCIA SOSA at [facility] [place]ONOSCOPY, DIAGNOSTIC (RECTUM) 05/20/2014 normal, repeat 10 yrs/done @ [facility] CORONARY ANGIOGRAPHY W/LEFT HEART CATH 10/29/2010 CORONARY ANGIOGRAPHY W/LEFT HEART CATH performed by ANNIE SEVILLA at [facility] [place]GD, FLEXIBLE, DIAGNOSTIC 12/05/2017 portal hypertensive gastropathy/[facility] EGD, FLEXIBLE, DIAGNOSTIC 10/25/2022 retained food / ESOPHAGOGASTRODUODENOSCOPY (EGD), FLEXIBLE, TRANSORAL, DIAGNOSTIC performed by Raghavendra Medrano MD at [facility] EGD, W/ENDOSCOPIC US 06/26/2011 UPPER GI ENDOSCOPY ENDOSCOPIC ULTRASOUND performed by RACHEL BAHENA at [facility] IN[facility] hip surgery. OTHER nerve biopsy right calf REMOVAL OF APPENDIX REMOVE ADDED SPINE LAMINA, 1 SEG 07/2007 Dr. Saleem L4-L5 REMOVE GALLBLADDER SURGICAL DRAINAGE OF BLADDER N/A 12/31/2023 CYSTOSTOMY WITH DRAINAGE OF BLADDER performed by Alfredo Panda MD at OR [facility] TOTAL ABD HYSTERECTOMY W/WO REMOVAL OF TUBE(S) Past Medical History: Diagnosis Date ASCVD (arteriosclerotic [...] OCD (obsessive compulsive disorder) Sees Dr. Cooper Pelvic pain 03/27/2021 Phlebitis and thrombophlebitis Recurrent UTI 10/07/2021 Seasonal allergies 11/15/2021 Patient Active Problem List Diagnosis PERONEAL MUSCLE ATROPHY Gastroesophageal reflux disease without esophagitis S/P angioplasty with stent Dyslipidemia, goal LDL below 70 Hypothyroidism GONZALEZ (nonalcoholic steatohepatitis) Bipolar I disorder, most recent episode depressed, moderate (HCC) HTN, goal below 130/80 MEDICATION USE AGREEMENT Mpmajzh-Hqvuw-Yvtdo disease Anxiety Hypertensive heart disease with chronic diastolic congestive heart failure (HCC) Fatty liver Chronic liver disease and cirrhosis (HCC) Portal hypertensive gastropathy (HCC) Moderate aortic stenosis Diabetic gastroparesis (HCC) alf (current) use of insulin (HCC) Urge incontinence Type 2 diabetes mellitus with diabetic neuropathy, with long-term current use of insulin (HCC) Type 2 diabetes mellitus with stage 3a chronic kidney disease, with long-term current use of insulin (HCC) Coronary artery disease involving ekuk coronary artery of ekuk heart without angina pectoris Seasonal allergies 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 Appearance: She is obese. She is not ill-appearing or toxic-appearing. Comments: Using wheelchair HENT: Head: Normocephalic. Right Ear: External ear normal. Left Ear: External ear normal. Nose: Nose normal. Mouth/Throat: Mouth: Mucous membranes are moist. Cardiovascular: Pulses: Normal pulses. Pulmonary: Effort: No respiratory distress. Abdominal: General: Abdomen is protuberant. Comments: Suprapubic tube site with mild inflammation due to soft tissue rubbing Neurological: Mental Status: She is oriented to person, place, and time. Motor: Weakness present. Psychiatric: Behavior: Behavior normal. Thought Content: Thought content normal. Suprapubic tube exchange for a 24 Urdu silicone catheter without difficulties or resistance. 10 mL of sterile water placed in the balloon, catheter irrigated with return of minimal debris, no obstruction, rapid clearing. Patient tolerated procedure well. Impression/Plan: 73-year-old female with suprapubic tube in place due to refractory voiding symptoms and history of recurrent UTI. Patient's quality of life is significantly improved on her current regimen. Will plan on another suprapubic tube exchange with myself in a month then we can move to nursing staff or home nursing. Patient is healing quite well. Wound Care is again reviewed. Contact us sooner with any difficulties. Continue home irrigation. Alfredo Panda MD 11:54 AM 02/23/2024 documented in this encounter Plan of Treatment Upcoming Encounters Date Type Department Care Team (Late st Contact Info) Description 02/25/2024 11:00 AM EDT Office Visit Cardiology, [facility] [address] [facility] [place] [address] Haydee Pop CRNP [address] [facility] [place] [address] 02/26/2024 2:30 PM EDT Home Visit [facility] [address] [place] [address] Al Doyle RN [address] [facility] [place] [address] 03/02/2024 4:00 PM EDT [address] [address] 03/09/2024 2:00 PM EDT Scheduled Telephone [facility], [facility] [address] [place] [address] Jesusita Saenz RDN [address] [place] [address] 03/23/2024 1:00 PM EDT Nurse Only U[facility], [facility] [place] [address] Ruddy Nurse Urology [facility] [address] [place] [address] 03/29/2024 11:00 AM EDT [facility] [address] [facility] [place] [address] Kirby Valenzuela PA-C [address] [place] [address] 03/29/2024 1:45 PM EDT Office Visit Urology, [facility] [address] [place] [address] Alfredo Panda MD [address] [facility] [place] [address] 06/08/2024 6:00 PM EST Office Visit [facility] [address] [place] [phone] Carmen Sifuentes MD [address] [place] [address] Scheduled Orders Name Type Priority Associated Diagnoses Orde r Schedule SUPRAPUBIC CHANGE/COMPLEX/NURSE Procedures Routine Urge incontinence Recurrent UTI Ordered: 02/23/2024 Scheduled Procedures Name Priority Associated Diagnoses Date/Ti me COLONOSCOPY FLEXIBLE PROXIMA L DIAGNOSTIC Recall Special screening for malignant neoplasms, colon Health Maintenance Due Date Last Done Comments DXA Scan 1949 Alpha-1 Antitrypsin 1967 Cologuard 1994 Fecal Occult Blood Test 1994 Sigmoidoscopy 1994 Hepatitis B Vaccine (1 of 3 - Risk 3-dose series) 2009 Mammogram 07/04/2011 07/04/2010 Adult Wellness Visit 2015 Zoster Vaccines (2 of 3) 10/04/2016 08/09/2016, 03/2016 Diabetic Eye Exam 06/05/2021 06/05/2020, , 04/27/2019, Additional history exists COVID-19 Vaccine ( season) 2023 06/10/2021, 08/29/2020, 08/01/2020 CKD PHOS USE SMARTSET 80797 10/24/202310/05, 02/18/2022, 02/17/2022, Additional history exists Influenza Vaccine (FLU shot) (#1) 2024 06/17/2023, 03/14/2022, 03/14/2022, Additional history exists Colonoscopy 05/20/2024 05/20/2014 Colorectal Cancer Screening 05/20/2024 TSH 06/17/2024 06/17/2023, 05/08, 02/13/2023, Additional history exists GFR 08/21/2024 02/19/2024, 10/05, 08/04/2023, Additional history exists HbA1c 08/21/2024 02/19/2024, 12/2023, 06/17/2023, Additional history exists Diabetic Foot Exam 10/15/2024 10/16/2023, 1 07/22/2019, 02/22/2019, Additional history exists Albumin/Creatinine Ratio 11/03/2024 024, 10/23/2022, 07/17/2022, Additional history exists O2 ASSESSMENT COMPLETED IN PAST YEAR FOR COPD 12/30/2024 12/31/2023 CKD HGB USE SMARTSET [id number] 02/18/202502/18, 02/19/2024, 12/11/2023, Additional history exists DTaP,Tdap,and Td Vaccines (2 - Td or Tdap) 06/27/2025 06/27/2015 Hepatitis C Screening Completed 07/04/2011, 011 Pneumococcal Vaccine: 65+ Years Completed 02/14/2017, 02/06/2016, 06/26/2011, Additional history exists HPV (Gardasil) Vaccine Aged Out No lo nger eligible based on patient's age to complete this topic MENINGOCOCCAL (MENACTRA/MENVEO) Aged Out No longer eligible based on patient's age to complete this topic documented as of this encounter Medical Devices Implanted Type Area Inspector Bicycle Device Identifier Shelf Expiration Date Model / Serial / Lot Jenna Rojas 6 [id number] - [id number] Implanted:Qty: 3 on 02/15/2011 [place] [facility] [place]/A: Chest DO NOT USE 01/15/2015 M654G / / [id number] Band Magdy 225-241 - [id number] Implanted:Qty: 1 on 02/15/2011 at [place] [facility] N/A: Chest [employer] 225-241 / / [id number] Jenna Rojas 6 [id number] - [id number] Implanted:Qty: 1 on 02/15/2011 at [place] [facility] N/A: Chest DO NOT USE 07/21/2015 M654G / / [id number] documented as of this encounter Visit Diagnoses Diagnosis Suprapubic catheter (HCC)- Primary Other cystostomy status Urge incontinence Pelvic pain Acute cystitis without hematuria Acute cystitis Recurrent UTI Urinary tract infection, site not specified documented in this encounter Advance Directives Documents on File Type Date Recorded 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 Question Answer Comments Discussion of Advance Directives occurred with: Patient * Full Code Date Activated Date Inactivated Comments 12/31/2023 2:27 PM 12/31/2023 4:12 PM This order r eflects the patients wishes and were consensually agreed upon. Question Answer Comments Discussion of Advance Directives occurred with: Patient * Full Code Date Activated Date Inactivated Comments 06/25/2011 3:09 AM 06/26/2011 9:47 PM This order reflects the patients wishes and were consensually agreed upon. Question Answer Comments Discussion of Advance Directives occurred with: Patient Does the patient have a Living Will? No Does the patient have Health Care Power of Attor britt? No * Full Code Date Activated Date Inactivated Comments 02/15/2011 5:07 PM 02/21/2011 5:20 PM This order r eflects the patients wishes and were consensually agreed upon. * Full Code Date Activated Date Inactivated Comments 02/11/2011 8:42 PM 02/15/2011 12:17 PM This order r eflects the patients wishes and were consensually agreed upon. Question Answer Comments Discussion of Advance Directives occurred with: Patient Healthcare Agents on File Name Relationship Healthcare Agent [facility] Communication Carolyn Ballard Adult Child Health Care Agent Care Teams Mortgage Operations Manager Relationship Specialty Start Date End Date Carmen Sifuentes MD [address] [facility] [place] [place] [address] PCP - General Family Medicine 07/16/17 documented as of this encounter
--- OUTSIDE RECORDS SUMMARY | 2024-03-03 07:58 | External Medical Summary | Summary of Care ---
Author Name Unknown Organization [facility] Address [address] [place] [address] Phone [phone] Care Team Providers Care Electron Beam Welder Setter Name Role Phone Brian Domínguez MD Primary Care Provider [phone] Reason for Visit * Reason Onset Date Comments Appointment 03/01/2024 Encounter Details Date Type Department Care Team (Late st Contact Info) Description 03/01/2024 Telephone Access Center, [place] [address] [facility] *DO NOT REMOVE THIS DEPARTMENT* [place] [address] Services, Scheduling [address] [place] [address] Appointment Allergies Active Allergy Reactions Criticality Noted Date Comments Propoxyphene Hcl Rash Low 10/29/2010 Fentanyl Diarrhea Low 04/26/2010 anxiety Methocarbamol Medium 10/05/2020 Other reaction(s): Delirium Methocarbamol Low 04/15/2007 Zolpidem Low 10/05/2020 Other reaction(s): Confusion documented as of this encounter (statuses as of 03/02/2024) Medications Medication Sig Dispensed Refills Start Date End Date Status venlafaxine XR (EFFEXOR XR) 150 MG [id number]:Dep ression Take 1 Cap by mouth daily. [...] Kit 11/18/2017 Active Blood Glucose Monitoring Suppl (Tinfoil SecurityIO) w/Device KIT Use as directed. Use as directed. 1 Kit 10/31/2018 Active Spacer/Aero-Holding Chambers WISAM Use with inhaler. Wheezing/bronchitis . 1 Device 04/08/2019 Active Lancet Devices (Quadia Online VideoTOUCH DELICA LANCING DEV) MISC Use four times [...] INSTRUCTIONS Please arrange for as needed Home residential visit for obtaining straight cath urine sample [...] minutes 25 Tablet 5 10/16/2023 Active Nystatin 994893 UNIT/GM External Powder (Nystop)Indications :Candidal intertrigo Apply topically to affected area 3 times a day. Apply to right breast until rash resolved. 30 g 10/16/2023 Active Nystatin 656640 UNIT/ML Mouth/Throat Suspension SWISH AND SWALLOW 5ML IN THE MORNING AND 5ML AT NOON AND 5 ML IN THE EVENING AND 5ML BEFORE BEDTIME, FOR THRUSH 240 mL 1 10/16/2023 Active Metoprolol Succinate ER 25 MG Oral Tablet Extended Release 24 Hour (toPROL XL)Indications:HTN, goal below 130/80 TAKE 1 TABLET BY MOUTH EVERY MORNING 90 Tablet 10/25/2023 Active Vitamin D (Ergocalciferol) 1.25 MG (58913 UT) Oral Capsule (Drisdol)Indication s:Vitamin D deficiency [...] Oral Tablet (Demadex)Indication s:Atherosclerotic heart disease of [place] coronary artery with other forms of angina [...] HOURS NEEDED FOR NAUSEA 60 Tablet 5 01/28/2024 Active Pantoprazole Sodium 40 MG Oral [...] as of this encounter (statuses as of 03/02/2024) Active Problems Problem Noted Date Diagnosed Date [...] Euvolemic today Coronary artery disease invo lving [place] coronary artery of [place] heart without angina pectoris 11/15/2021 Last Assessment [...] (H) 02/18/2019 02:55 PM Urge incontinence 03/27/2021 [facility] (current) use of insulin 09/29/2019 Diabetic gastroparesis [...] 01/16/22 Moderate aortic stenosis 05/06/2018 Anxiety 08/05/2017 MEDICATION USE AGREEMENT 01/17/2015 Overview: Signed 01/04/2015 HTN, goal below 130/80 09/06/2014 Bipolar I disorder, most recent episode depresse d, moderate 06/09/2012 Last Assessment & Plan: Follows with Dr CHARLES, psychiatry Continue abilify, effexor, trazodone, and lamictal Hypothyroidism 02/15/2011 Dyslipidemia, goal LDL below 70 02/12/2011 S/P angioplasty with stent 02/01/2010 Gastroesophageal reflux disease without esophagi tis 05/04/2004 Overview: Updated due to amp error Tygmisu-Rgnpk-Mtthx disease 12/31/2002 Last Assessment & Plan: Frequent falls Home PT and OT continue GONZALEZ (nonalcoholic steatohepatitis) documented as of this encounter (statuses as of 03/02/2024) Resolved Problems Problem Noted Date Diagnosed Date Resolved Date Chronic obstructive pulmonary disease 10/23/2023 11/19/2023 Overview: Per COPD GOLD Classification Food insecurity 06/16/2023 02/19/2024 Overview: Per [facility] Protocol Transient alteration of awareness 05/12/2023 05/12/2023 Open wound of left heel 03/12/2022/08/2022 Last [...] is giving this. 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-exceptional student education aide and ID Acute cystitis without hematuria 03/27/2021 07/08/2022 Pelvic pain 03/27/2021 02/03/2024 Type 2 diabetes mellitus wit h diabetic neuropathy 09/07/2018 11/07/2023 Overview: duplicate Mild protein-calorie malnutrition 05/07/2018 04/29/2019 Diabetes mellitus with neuropathy 05/06/2018 09/07/2018 Other cirrhosis of liver 05/06/2018 Atherosclerotic heart diseas e of [place] coronary artery with other forms of angina pectoris 05/06/2018 08/27/2021 Thrombocytopenia 05/06/2018 02/09/2021 Portal hypertension 05/06/2018 08/28/19 19 Hepatic encephalopathy 05/06/201808/27 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/2014 [facility] current use of ant icoagulant therapy 06/17/2006 [...] as of this encounter (statuses as of 03/02/2024) Immunizations Name Administration Dates Next Due COVID-19 [...] encounter Miscellaneous Notes * Telephone Encounter - Patricia Velasco OSA - 03/02/2024 8:08 AM EDT Done. 03/02/2024 * Telephone Encounter - Desiree Ann OSA - 03/01/2024 3:46 PM EDT No Appointments Available Patient declined appointments?: No What Visit Type is needed? Acute If Acute Visit Type is needed, were surrounding clinics offered to patient (Yes/No)? Yes Was patient offered appointments with other available providers (Yes/No)? Yes See Call Details? (Yes or No): Yes documented in this encounter Plan of Treatment Upcoming Encounters Date Type Department Care Team (Late st Contact Info) Description 03/02/2024 2:20 PM EDT Office Visit [facility] [address] [place] [facility] [place] [id number] Brian Domínguez MD [address] [facility] [place] [address] 03/02/2024 4:00 PM EDT [address] Radiology, [address] [address] 03/09/2024 12:30 PM EDT Home Visit [facility] [place], [facility] [address] [address] Al Doyle, RN [address] [address] 03/09/2024 2:00 PM EDT Scheduled Telephone [facility], [facility] [address] [facility] [place] [address] Jesusita Saenz RDN [address] [facility] [place] [address] 03/29/2024 11:00 AM EDT Home Visit [facility], [facility] [address] [address] Kirby Valenzuela PA-C [address] [address] 03/29/2024 1:45 PM EDT Office Visit Urology, [facility] [address] [place] [address] Alfredo Panda MD [address] [place] [address] 06/08/2024 6:00 PM EST [facility] [address] [facility] [address] Brian Domínguez MD [address] [place] [address] Scheduled Procedures Name Priority Associated Diagnoses Date/Ti [...] Vaccines (2 of 3) 10/04/2016 08/09/2016, 1103/2016 Diabetic Eye Exam 06/05/2021 06/05/2020, , 04/27/2019, Additional history exists COVID-19 Vaccine ( season) 2023 06/10/2021, 08/29/2020, 08/01/2020 CKD PHOS USE SMARTSET 83852 10/24/202310/05, 02/18/2022, 02/17/2022, Additional history exists Influenza Vaccine (FLU shot) (#1) 2024 06/17/2023, 03/14/2022, 03/14/2022, Additional history exists Colonoscopy 05/20/2024 05/20/2014 Colorectal Cancer Screening 05/20/2024 TSH 06/17/2024 06/17/2023, 05/08, 02/13/2023, Additional history exists GFR 08/21/2024 02/19/2024, 04/1 12/2023, 08/04/2023, Additional history exists HbA1c 08/21/2024 02/19/2024, 06/0 12/2023, 06/17/2023, Additional history exists Diabetic Foot Exam 10/15/2024 10/16/2023, 1 07/22/2019, 02/22/2019, Additional history exists Albumin/Creatinine Ratio 11/03/2024 024, 10/23/2022, 07/17/2022, Additional history exists O2 ASSESSMENT COMPLETED IN PAST YEAR FOR COPD 12/30/2024 12/31/2023 CKD HGB USE SMARTSET 51359 02/18/202502/18, 02/19/2024, 12/11/2023, Additional history exists DTap/Tdap Vaccines (2 - Td or Tdap) 06/27/2025 [...] this encounter Medical Devices Implanted Type Area Post Adoption Coordinator Device Identifier Shelf Expiration Date Model / Serial / Lot Sut Steel 6 M654g - [id number] Implanted:Qty: 3 on 02/15/2011 at [place] [facility] N/A: Chest DO NOT USE 01/15/2015 M654G / / [id number] [facility] 225-241 - [id number] Implanted:Qty: 1 on 02/15/2011 at OR [facility] N/A: Chest [employer] 225-241 / / [id number] Sut Steel 6 M654g - [id number] Implanted:Qty: 1 on 02/15/2011 at OR [facility] N/A: Chest DO NOT USE 07/21/2015 M654G / / [id number] documented as of this encounter Advance Directives Documents on File Type Date Recorded Patient Rn Review Jose luna POL 05/06/2018 POLST * Full Code (Latest Code [...] Adult Child Health Care Agent Care Teams Electron Beam Welder Setter Relationship Specialty Start Date End Date Brian Domínguez MD [address] [place] [address] PCP - General Family Medicine 07/16/17 documented as of this encounter
--- OUTSIDE RECORDS SUMMARY | 2024-03-03 07:58 | External Medical Summary | Summary of Care ---
Author Name Unknown Organization [facility] Address [address] [facility] [place] [address] Phone [phone] Care Team Providers Care Sales Engagement Executive Name Role Phone Brian Domínguez MD Primary Care Provider [phone]- [phone] Reason for Visit * Reason Onset Date Comments Appointment 02/26/2024 Encounter Details Date Type Department Care Team (Late st Contact Info) Description 02/26/2024 Telephone [facility], [facility] [address] [place] [address] Al Doyle, RN [address] [place] [address] Appointment Allergies Active Allergy Reactions Criticality Noted Date Comments Propoxyphene Hcl Rash Low 10/29/2010 Fentanyl Diarrhea Low 04/26/2010 anxiety Methocarbamol Medium 10/05/2020 Other reaction(s): Delirium Methocarbamol Low 04/15/2007 Zolpidem Low 10/05/2020 Other reaction(s): Confusion documented as of this encounter (statuses as of 02/26/2024) Medications Medication Sig Dispensed Refills Start Date End Date Status venlafaxine XR (EFFEXOR XR) 150 MG [id number]:Dep ression Take 1 Cap by mouth daily. [...] Kit 11/18/2017 Active Blood Glucose Monitoring Suppl (PannaUCH VERIO) w/Device KIT Use as directed. Use as directed. 1 Kit 10/31/2018 Active Spacer/Aero-Holding Chambers WISAM Use with inhaler. Wheezing/bronchitis . 1 Device 04/08/2019 Active Lancet Devices (QufenqiTOUCH DELICA LANCING DEV) MISC Use four times [...] INSTRUCTIONS Please arrange for as needed Home [facility] visit for obtaining straight cath urine sample [...] minutes 25 Tablet 5 10/16/2023 Active Nystatin 045498 UNIT/GM External Powder (Nystop)Indications :Candidal intertrigo Apply topically to affected area 3 times a day. Apply to right breast until rash resolved. 30 g 10/16/2023 Active Nystatin 543898 UNIT/ML Mouth/Throat Suspension SWISH AND SWALLOW 5ML IN THE MORNING AND 5ML AT NOON AND 5 ML IN THE EVENING AND 5ML BEFORE BEDTIME, FOR THRUSH 240 mL 1 10/16/2023 Active Metoprolol Succinate ER 25 MG Oral Tablet Extended Release 24 Hour (toPROL XL)Indications:HTN, goal below 130/80 TAKE 1 TABLET BY MOUTH EVERY MORNING 90 Tablet 10/25/2023 Active Vitamin D (Ergocalciferol) 1.25 MG (86886 UT) Oral Capsule (Drisdol)Indication s:Vitamin D deficiency [...] Oral Tablet (Demadex)Indication s:Atherosclerotic heart disease of [place] coronary artery with other forms of [...] as of this encounter (statuses as of 02/26/2024) Active Problems Problem Noted Date Diagnosed Date [...] Euvolemic today Coronary artery disease invo lving [place] coronary artery of [place] heart without angina pectoris 11/15/2021 Last Assessment [...] (H) 02/18/2019 02:55 PM Urge incontinence 03/27/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-lead game designer and ID Acute cystitis without hematuria 03/27/2021 07/08/2022 Pelvic pain 03/27/2021 02/03/2024 Type 2 diabetes mellitus wit h diabetic neuropathy 09/07/2018 11/07/2023 Overview: duplicate Mild protein-calorie malnutrition 05/07/2018 04/29/2019 Diabetes mellitus with neuropathy 05/06/2018 09/07/2018 Other cirrhosis of liver 05/06/2018 Atherosclerotic heart diseas e of [place] coronary artery with other forms of [...] stenosis 10/31/2010 08/28/2018 Acute coronary syndrome 10/30/201001/04 [place] Research Other*[id number] 02/02/2010 04/18/2014 Overview: [place] [facility], Dr Joel CASAS Obesity, morbid (more [...] thrombosis 06/17/2006 01/21/2014 alf current use of ant icoagulant therapy 06/17/2006 [...] as of this encounter (statuses as of 02/26/2024) Immunizations Name Administration Dates Next Due COVID-19 [...] encounter Miscellaneous Notes * Telephone Encounter - Al Doyle RN - 02/26/2024 2:59 PM EDT Pt was scheduled for 1430 appt with this RN today. This RN arrived at pt apartment, dialed pt in directory to be left in, no answer. Placed TPC to pt, no answer. Placed TPC to pt daughter Carolyn, no answer. This RN was left into pt apartment building by another nurse, went to pt door, knocked, no answer at door. Appt rescheduled. documented in this encounter Plan of Treatment Upcoming Encounters Date Type Department Care Team (Late st Contact Info) Description 03/02/2024 4:00 PM EDT Imaging Radiology, [address] [place] [address] 03/09/2024 12:30 PM EDT Home Visit [facility], [facility] [address] [address] Al Doyle, RN [address] [address] [address] 03/09/2024 2:00 PM EDT Scheduled Telephone [facility], [facility] [address] [facility] [place] [address] Jesusita Saenz RDN [address] [facility] [place] [address] 03/29/2024 11:00 AM EDT Home Visit [facility], [facility] [address] [address] Kirby Valenzuela PA-C [address] [address] 03/29/2024 1:45 PM EDT Office Visit Urology, [facility] [address] [address] Alfredo Panda MD [address] [place] [address] 06/08/2024 6:00 PM EST Office Visit [facility] [address] [place] [address] Brian Domínguez MD [address] [place] [facility] [place] [address] Scheduled Procedures Name Priority Associated Diagnoses [...] 06/10/2021, 08/29/2020, 08/01/2020 CKD PHOS USE SMARTSET 75070 10/24/202310/05, 02/18/2022, 02/17/2022, Additional history exists Influenza [...] COPD 12/30/2024 12/31/2023 CKD HGB USE SMARTSET 41234 02/18/202502/18, 02/19/2024, 12/11/2023, Additional history exists DTaP,Tdap,and [...] encounter Medical Devices Implanted Type Area Garment Alteration Examiner Device Identifier Shelf Expiration Date Model / Serial / Lot Sut Steel 6 M654g - [id number] Implanted:Qty: 3 on 02/15/2011 at [place] [facility] N/A: Chest DO NOT USE 01/15/2015 M654G / / [id number] [facility] 225-241 - [id number] Implanted:Qty: 1 on 02/15/2011 at OR [facility] N/A: Chest [employer] 225-241 / / [id number] Sut Steel 6 M654g - [id number] Implanted:Qty: 1 on 02/15/2011 at OR [facility] N/A: Chest DO NOT USE 07/21/2015 M654G / / [id number] documented as of this encounter Advance Directives Documents on File Type Date Recorded Patient Coffee Roaster Expl cheyanneion POL 05/06/2018 POLST * Full Code (Latest [...] [facility] Communication Carolyn Goldmangerard Adult Child Health Care Agent Care Teams Sales Engagement Executive Relationship Specialty Start Date End Date Brian Domínguez MD [address] [facility] [place] [address] PCP - General Family Medicine 07/16/17 documented as of this encounter
--- OUTSIDE RECORDS SUMMARY | 2024-03-03 07:59 | External Medical Summary ---
Author Name Unknown Address Unknown Organization K01:[facility] [place] [address] [place] [address] [place] [address] Laboratory Report Ordering Provider Test Date Status CARMENZORANROXY 02/19/2024 13:58:52 Final Observation Date Value Abnormality Reference (Units ) Status WBC, Total 02/19/2024 13:58:52 8.92 4.00-10.80 (K/uL) Final RBC 02/19/2024 13:58:52 4.62 3.85-5.15 (M/uL) Final Hemoglobin 02/19/2024 13:58:52 12.7 12.0-15.3 (g/dL) Final HCT 02/19/2024 13:58:52 38.8 36.0-45.2 (%) Final MCV 02/19/2024 13:58:52 84.0 81.5-97.5 (fL) Final MCH 02/19/2024 13:58:52 27.5 27.0-34.0 (pg) Final MCHC 02/19/2024 13:58:52 32.7 32.0-36.0 (g/dL) Final RDW 02/19/2024 13:58:52 15.7 11.5-15.5 (%) Final Platelets 02/19/2024 13:58:52 127 Below low normal 140-400 (K/uL) Final MPV 02/19/2024 13:58:52 11.4 6.6-11.1 (fL) Final Nucleated erythrocytes/100 leukocytes [Ratio] in Blood by Automated count 02/19/2024 13:58:52 0 <=0 (/100 WBCs) Final Performing Location [facility] - [address] [place] [address]
--- OUTSIDE RECORDS SUMMARY | 2024-03-03 07:59 | External Medical Summary | Summary of Care ---
Author Name Unknown Organization [facility] Address [address] [place] [address] Phone [phone] Care Team Providers Care Fire Extinguisher Repairer Inspector Name Role Phone Brian Domínguez MD Primary Care Provider [phone]- [phone] Reason for Visit * Reason Comments Outpatient Testing Encounter Details Date Type Department Care Team (Late st Contact Info) Description 02/19/2024 2:00 PM EDT Laboratory Laboratory, [address] [address] [address], Specimen Drop Off [address] [address] Gastroesophageal reflux disease without esophagitis; Chronic kidney disease, stage 3a (HCC); Encounter for long-term (current) use of medications; Confusion; Altered mental status, unspecified altered mental status type Allergies Active Allergy Reactions Criticality Noted Date Comments Propoxyphene Hcl Rash Low 10/29/2010 Fentanyl Diarrhea Low 04/26/2010 anxiety Methocarbamol Medium 10/05/2020 Other reaction(s): Delirium Methocarbamol Low 04/15/2007 Zolpidem Low 10/05/2020 Other reaction(s): Confusion documented as of this encounter (statuses as of 02/19/2024) Medications Medication Sig Dispensed Refills Start Date End Date Status venlafaxine XR (EFFEXOR XR) 150 MG [id number]:Dep ression Take 1 Cap by mouth daily. [...] Kit 11/18/2017 Active Blood Glucose Monitoring Suppl (The Hitch VERIO) w/Device KIT Use as directed. Use as directed. 1 Kit 10/31/2018 Active Spacer/Aero-Holding Chambers WISAM Use with inhaler. Wheezing/bronchitis . 1 Device 04/08/2019 Active Lancet Devices (LeanWagonTOUCH DELICA LANCING DEV) MISC Use four times [...] INSTRUCTIONS Please arrange for as needed Home halfway visit for obtaining straight cath urine sample [...] minutes 25 Tablet 5 10/16/2023 Active Nystatin 816546 UNIT/GM External Powder (Nystop)Indications :Candidal intertrigo Apply topically to affected area 3 times a day. Apply to right breast until rash resolved. 30 g 10/16/2023 Active Nystatin 794826 UNIT/ML Mouth/Throat Suspension SWISH AND SWALLOW 5ML IN THE MORNING AND 5ML AT NOON AND 5 ML IN THE EVENING AND 5ML BEFORE BEDTIME, FOR THRUSH 240 mL 1 10/16/2023 Active Metoprolol Succinate ER 25 MG Oral Tablet Extended Release 24 Hour (toPROL XL)Indications:HTN, goal below 130/80 TAKE 1 TABLET BY MOUTH EVERY MORNING 90 Tablet 10/25/2023 Active Vitamin D (Ergocalciferol) 1.25 MG (11169 UT) Oral Capsule (Drisdol)Indication s:Vitamin D deficiency [...] Oral Tablet (Demadex)Indication s:Atherosclerotic heart disease of [place] coronary artery with other forms of angina [...] as of this encounter (statuses as of 02/19/2024) Active Problems Problem Noted Date Diagnosed Date [...] Euvolemic today Coronary artery 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-optical glass sawyer and ID Acute cystitis without hematuria 03/27/2021 07/08/2022 Pelvic pain 03/27/2021 02/03/2024 Type 2 diabetes mellitus wit h diabetic neuropathy 09/07/2018 11/07/2023 Overview: duplicate Mild protein-calorie malnutrition 05/07/2018 04/29/2019 Diabetes mellitus with neuropathy 05/06/2018 09/07/2018 Other cirrhosis of liver 05/06/2018 Atherosclerotic heart diseas e of [place] coronary artery with other forms of angina pectoris 05/06/2018 08/27/2021 Thrombocytopenia 05/06/2018 02/09/2021 Portal hypertension 05/06/2018 08/28/19 19 Hepatic encephalopathy 05/06/201808/27 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11/04 [...] stenosis 10/31/2010 08/28/2018 Acute coronary syndrome 10/30/201001/04 [employer] Other*[id number] 02/02/2010 04/18/2014 Overview: Catarina Registry, Dr Joel CASAS Obesity, morbid (more [...] Duplicate Protocol #2. 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 use of ant icoagulant therapy [...] as of this encounter (statuses as of 02/19/2024) Immunizations Name Administration Dates Next Due COVID-19 [...] 02/23/2024 3:00 PM EDT Office Visit Urology, [facility] [address] [place] [address] Alfredo Panda MD [address] [address] 02/25/2024 11:00 AM EDT Office Visit Cardiology, [facility] [address] [place] [address] [facility] [place] [address] 03/02/2024 4:00 PM EDT [address] [address] 03/09/2024 2:00 PM EDT Scheduled Telephone [facility], [facility] [address] [facility] [place] [address] Jesusita Saenz, KELLYN [address] [facility] [place] [address] 03/29/2024 11:00 AM EDT Home Visit [facility], [facility] [address] [place] [address] Kirby Valenzuela PA-C [address] [place] [address] 03/29/2024 1:45 PM EDT Office Visit Urology, [facility] [address] [address] Alfredo Panda MD [address] [address] 06/08/2024 6:00 PM EST Office Visit [facility] [address] [place] [address] Brian Domínguez MD [address] [place] [address] Pending Results Name Type Priority Associated Diagnoses Date /Time MAGNESIUM Lab Routine Gastroesophageal reflux disease without esophagitis Chronic kidney disease, stage 3a (HCC) Encounter for long-term (current) use of medications 02/19/2024 1:58 PM EDT CBC WITH WBC DIFFERENTIAL Lab Routine Confusion Altered mental status, unspecified altered mental status type 02/19/2024 1:58 PM EDT COMPREHENSIVE METABOLIC PANEL Lab Routine Confusion Altered mental status, unspecified altered mental status type 02/19/2024 1:58 PM EDT AMMONIA Lab Routine Confusion Altered mental status, unspecified altered mental status type 02/19/2024 1:58 PM EDT CBC Lab Routine Confusion Altered mental status, unspecified altered mental status type 02/19/2024 1:58 PM EDT DIFFERENTIAL, AUTOMATED Lab Routine Confusion Altered mental status, unspecified altered mental status type 02/19/2024 1:58 PM EDT Scheduled Procedures Name Priority Associated [...] 06/10/2021, 08/29/2020, 08/01/2020 CKD PHOS USE SMARTSET 60039 10/24/202310/05, 02/18/2022, 02/17/2022, Additional history exists Influenza Vaccine (FLU shot) (#1) 2024 06/17/2023, 03/14/2022, 03/14/2022, Additional history exists GFR 04/21/2024 10/21/2023, 07/08, 06/17/2023, Additional history exists Colonoscopy 05/20/2024 05/20/2014 Colorectal Cancer Screening 05/20/2024 HbA1c 06/11/2024 12/11/2023, 06/06, 10/23/2022, Additional history exists TSH 06/17/2024 06/17/2023, 05/08, 02/13/2023, Additional history exists Diabetic Foot Exam 10/15/2024 10/16/2023, 1 07/22/2019, 02/22/2019, Additional history exists Albumin/Creatinine Ratio 11/03/2024 024, 10/23/2022, 07/17/2022, Additional history exists CKD HGB USE SMARTSET 69286 12/10/202412/10, 08/04/2023, 08/04/2023, Additional history exists O2 ASSESSMENT COMPLETED IN PAST YEAR FOR COPD 12/30/2024 12/31/2023 DTaP,Tdap,and Td Vaccines (2 - Td or [...] this encounter Medical Devices Implanted Type Area Door To Door Fundraising Collector Device Identifier Shelf Expiration Date Model / Serial / Lot Sut Bob 6 M654g - [id number] Implanted:Qty: 3 on 02[place]15/2011 [place] [facility] [place]: Chest DO NOT USE 01/15/2015 M654G / / [id number] Gaston Fuentesham 225-241 - [id number] Implanted:Qty: 1 on 02/15/2011 at [place] [facility] [place]: Chest [employer] 225-241 / / [id number] Sut Steel 6 M654g - [id number] Implanted:Qty: 1 on 02/15/2011 at [place] [facility] [place]A: Chest DO NOT USE 07/21/2015 M654G / / [id number] documented as of this encounter Visit Diagnoses Diagnosis Gastroesophageal reflux disease without esophagitis Esophageal reflux Chronic kidney disease, stage 3a (HCC) Encounter for long-term (current) use of medications Encounter for long-term (current) use of other medications Confusion Unspecified psychosis Altered mental status, unspecified altered mental status type documented in this encounter Advance Directives Documents on File Type Date Recorded Patient Spring Former Hand Expl anation POLST 05/06/2018 POLST * Full Code (Latest Code Status on File) Date Activated Date Inactivated Comments 12/31/2023 4:12 PM 12/31/2023 9:39 PM This order reflects the patients wishes [...] Adult Child Health Care Agent Care Teams Fire Extinguisher Repairer Inspector Relationship Specialty Start Date End Date Brian Domínguez MD [address] [facility] [place] [id number] PCP - General Family Medicine 07/16/17 documented as of this encounter
--- OUTSIDE RECORDS SUMMARY | 2024-03-03 07:59 | External Medical Summary ---
Author Name Unknown Address Unknown Organization [id number]:[facility] [address] [place] [address] Laboratory Report Ordering Provider Test Date Status SATYA DYE 02/19/2024 13:58:52 Final Observation Date Value Abnormality Reference (Units ) Status Magnesium 02/19/2024 13:58:52 1.8 1.5-2.6 (m g/dL) Final Performing Location [facility] - [address] [place] [address]
--- OUTSIDE RECORDS SUMMARY | 2024-03-03 07:59 | External Medical Summary ---
Author Name Unknown Address Unknown Organization K01:[facility] [place] [facility] [place] [address] [place] [id number] Laboratory Report Ordering Provider Test Date Status MARIA MORALES 02/19/2024 13:58:52 Final Observation Date Value Abnormality Reference (Units ) Status HbA1C 02/19/2024 13:58:52 5.9 Above high normal 4. 0-5.6 (%) Final The use of HbA1c to monitor glycemic status is based on normal hemoglobin and HbA composition. This test should not be used in patients with abnormal hemoglobin that affects the half life of the red blood cell or the in vivo glycation rates. Glucose, estimated average 02/19/2024 13:58:52 123 <126 (mg/dL) Final Performing Location [facility] [place] [address] [place] [id number]
--- OUTSIDE RECORDS SUMMARY | 2024-03-03 07:59 | External Medical Summary ---
Author Name Unknown Address Unknown Organization [id number]:[facility] [address] [place] [address] Laboratory Report Ordering Provider Test Date Status MARIA MORALES 02/19/2024 13:58:52 Final Observation Date Value Abnormality Reference (Units ) Status Ammonia 02/19/2024 13:58:52 31 11-35 (umo l/L) Final Performing Location [facility] - [address] [place] [address]
--- OUTSIDE RECORDS SUMMARY | 2024-03-03 07:59 | External Medical Summary | Summary of Care ---
Author Name Unknown Organization [facility] Address [address] [place] [address] Phone [phone] Care Team Providers Care Gsa Coordinator Name Role Phone Brian Domínguez MD Primary Care Provider [phone] Reason for Visit * Reason Comments Status Check Return in 4 months Encounter Details Date Type Department Care Team (Late st Contact Info) Description 11/18/2023 6:00 PM EDT Office Visit [facility] [address] [place] [address] Brian Domínguez MD [address] [place] [address] Type 2 diabetes mellitus with stage 3a chronic kidney disease, with long-term current use of insulin (HCC)*; Risk and functional assessment; Chronic liver disease and cirrhosis (HCC); Coronary artery disease involving [place] coronary artery of [place] heart without angina pectoris; Bipolar I disorder, most recent episode depressed, moderate (HCC); Hypothyroidism, unspecified type; Dyslipidemia, goal LDL below 70; Recurrent UTI; Urge incontinence Allergies Active Allergy Reactions Criticality Noted Date Comments Propoxyphene Hcl Rash Low 10/29/2010 Fentanyl Diarrhea Low 04/26/2010 anxiety Methocarbamol Medium 10/05/2020 Other reaction(s): Delirium Methocarbamol Low 04/15/2007 Zolpidem Low 10/05/2020 Other reaction(s): Confusion documented as of this encounter (statuses as of 02/23/2024) Medications Medication Sig Dispensed Refills Start Date End Date Status venlafaxine XR (EFFEXOR XR) 150 MG [id number]:De pression Take 1 Cap by mouth daily. With food. 30 Cap 5 09/02/19 17 Active Additional Information Patient taking differently: 225 mgOral Daily(AM),Taking a total of 225 mg, Indications: Takes 225 mg total every morning with food (150 mg tab + 75 mg tab), Reported on 03/03/2023 Blood Glucose Monitoring Suppl ([employer] GLUCOMETER) w/Device KITIndications:Unc ontrolled type 2 diabetes mellitus without complication, without long-term current use of insulin Use as directed. Use as directed once daily 1 Kit 11/19/19 18 Active Blood Glucose Monitoring Suppl (Jor[employer] VERIO) w/Device KIT Use as directed. Use as directed. 1 Kit 11/01/19 19 Active Spacer/Aero-Holdin g Chambers WISAM Use with inhaler. Wheezing/bronchit is. 1 Device 04/08/20 19 Active Lancet Devices (Origami LabsUCH DELICA LANCING DEV) MISC Use four times a day Dx: E11.4 1 Each 09/30/19 20 Active venlafaxine XR (EFFEXOR XR) 75 MG CP24 Take 1 Capsule by mouth in the morning. With 150mg tablet. Active traZODone (DESYREL) 50 MG Tablet Take 2 Tablets by mouth at bedtime. 30 Tab 5 10/15/19 20 Active Aspirin EC 81 MG Oral Tablet Delayed Release Take 1 Tablet by mouth in the morning. 03/27/20 20 Active Fluticasone Propionate 50 MCG/ACT Nasal SuspensionIndicati ons:PND (post-nasal drip) Administer 2 Sprays into each nostril daily. 9.9 mL 1 11/12/19 21 Active Lactulose 10 GM/15ML Oral Solution (Constulose)Indica tions:Chronic liver disease and cirrhosis (HCC) TAKE 45 ML BY MOUTH TWICE DAILY DIRECTED 2700 mL 5 10/05/19 22 Active Additional Information Patient taking differently: TID(AM/NOON/HS), Reported on 03/03/2023 lamoTRIgine 100 MG Oral Tablet (LaMICtal) Take 1 Tablet by mouth every morning. 30 Tablet 5 03/12/20 22 Active AIRS Disposable Nebulizer Kit Use as directed 1 Kit 07/17/19 Active lamoTRIgine 25 MG Oral Tablet (LaMICtal) 1 Tablet. Taking 2 at bedtime and 1 in morning 09/09/19 23 Active Albuterol Sulfate HFA 108 (90 Base) MCG/ACT Inhalation Aerosol SolutionIndication s:Cough Use two puffs four times a day, as directed 18 g 3 11/08/19 23 Active Dicyclomine HCl 10 MG Oral Capsule (Bentyl)Indication s:Abdominal pain TAKE ONE CAPSULE BY MOUTH FOUR TIMES DAILY NEEDED FOR ABDOMINAL PAIN 120 Capsule 3 12/09/19 23 Active Budesonide-Formote rol Fumarate 160-4.5 MCG/ACT Inhalation Aerosol (Symbicort) Inhale 2 Puffs by mouth in the morning and 2 Puffs before bedtime. 10.2 g 12 03/24/20 23 Active Atorvastatin Calcium 40 MG Oral Tablet (Lipitor)Indicatio ns:Dyslipidemia, goal LDL below 70 TAKE ONE TABLET BY MOUTH EVERY MORNING 90 Tablet 2 05/15/20 23 Active Ipratropium-Albute rol 0.5-2.5 (3) MG/3ML Inhalation Solution (Duoneb) Inhale 3 mL via nebulizer in the morning and 3 mL at noon and 3 mL in the evening and 3 mL before bedtime. 360 mL 3 05/28/20 23 Active Zoster Vac Recomb Adjuvanted 50 MCG/0.5ML Intramuscular Suspension Reconstituted (Shingrix) Inject 0.5 mL into a large muscle now and repeat dose in 60 to 180 days 1 Each 1 06/17/20 Active Additional Information Patient not taking.Reported on 11/18/2023 MEDICAL INSTRUCTIONS Please arrange for as needed Home detention visit for obtaining straight cath urine sample for 06/25/23. 1 Each 1 06/24/20 23 Active Famotidine 40 MG Oral Tablet (Pepcid)Indication s:Gastroesophageal reflux disease with esophagitis without hemorrhage TAKE 1 TABLET BY MOUTH EVERY MORNING 90 Tablet 3 07/19/19 24 Active OneTouch Verio In Vitro Strip (Glucose Blood)Indications: Type 2 diabetes mellitus with diabetic neuropathy, with long-term current use of insulin (HCC) use to test blood sugar 3 times daily 300 Strip 1 07/21/19 24 Active OneTouch Delica Lancets 33G USE UP TO FOUR TIMES A DAY Dx:E11.4 360 Each 5 07/30/19 24 Active Vitamin C 500 MG Oral Tablet (Ascorbic Acid)Indications:R ecurrent UTI TAKE 1 TABLET BY MOUTH TWICE DAILY every morning and before bedtime 180 Tablet 3 08/13/19 24 Active Estradiol 0.1 MG/GM Vaginal Cream (Estrace) Apply pea sized amount (0.5 gm) vaginally every other night 42.5 g 3 08/20/19 24 Active Levothyroxine Sodium 88 MCG Oral Tablet (Levoxyl)Indicatio ns:Hypothyroidism TAKE 1 TABLET BY MOUTH ONCE DAILY AT LEAST 30 MINUTES BEFORE BREAKFAST AND OTHER MEDICATIONS 90 Tablet 1 09/08/19 24 Active PEG 3350 17 GM/SCOOP Oral Powder DISSOLVE ONE HEAPING TABLESPOON IN 8 OZ OF WATER OR JUICE DAILY NEEDED FOR CONSTIPATION. 510 g 5 09/22/19 24 Active Spironolactone 50 MG Oral Tablet (Aldactone)Indicat ions:GONZALEZ (nonalcoholic steatohepatitis),P ortal hypertension (HCC),Chronic liver disease and cirrhosis (HCC),Portal hypertensive gastropathy (HCC) TAKE ONE TABLET BY MOUTH IN THE MORNING AND ONE TABLET BEFORE BEDTIME 180 Tablet 1 10/07/19 24 Active Gabapentin 300 MG Oral Capsule (Neurontin)Indicat ions:Lumbar spondylosis TAKE 1 CAPSULE BY MOUTH TWICE DAILY 60 Capsule 5 10/14/19 24 Active Nitroglycerin 0.4 MG Sublingual Tablet Sublingual (Nitrostat)Indicat ions:Chronic coronary artery disease Place 1 Tablet under the tongue every 5 minutes as needed for Pain, Chest. Max dose 3 tablets in 15 minutes 25 Tablet 5 10/16/19 24 Active Nystatin 475189 UNIT/GM External Powder (Nystop)Indication s:Candidal intertrigo Apply topically to affected area 3 times a day. Apply to right breast until rash resolved. 30 g 10/16/19 24 Active Nystatin 124541 UNIT/ML Mouth/Throat Suspension SWISH AND SWALLOW 5ML IN THE MORNING AND 5ML AT NOON AND 5 ML IN THE EVENING AND 5ML BEFORE BEDTIME, FOR THRUSH 240 mL 1 10/16/19 24 Active Metoprolol Succinate ER 25 MG Oral Tablet Extended Release 24 Hour (toPROL XL)Indications:HTN , goal below 130/80 TAKE 1 TABLET BY MOUTH EVERY MORNING 90 Tablet 10/25/19 24 Active Vitamin D (Ergocalciferol) 1.25 MG (65851 UT) Oral Capsule (Drisdol)Indicatio ns:Vitamin D deficiency TAKE 1 CAPSULE BY MOUTH ONCE WEEKLY 12 Capsule 3 11/10/19 24 Active Insulin Glargine Solostar 100 UNIT/ML Subcutaneous Solution Pen-injector (Lantus SoloStar)Indicatio ns:Type 2 diabetes mellitus with stage 3a chronic kidney disease, with long-term current use of insulin (HCC) Inject 35 units subcutaneously twice per day 30 mL 11 11/18/19 24 Active ARIPiprazole (ABILIFY) 2 MG Tablet Take 1 Tablet by mouth in the morning. 0 07/11/19 16 024 Discontinued(Me dication List Clean Up) NovoFine 32G X 6 MM (NOVOFINE 32G PEN NEEDLE) using twice a day with levemir 100 Each 5 12/12/19 21 024 Discontinued(Me dication List Clean Up) Insulin Glargine Solostar 100 UNIT/ML Subcutaneous Solution Pen-injector (Basaglar KwikPen)Indication s:Type 2 diabetes mellitus with diabetic neuropathy, with long-term current use of insulin ([facility]) Inject 30 units under the skin twice daily 45 mL 3 04/16/20 22 024 Discontinued(Fo rmulary/Cost) Spiriva Respimat 2.5 MCG/ACT Inhalation Aerosol Solution (Tiotropium [place] Monohydrate) Inhale by mouth 2 Puffs in the morning. 4 g 3 04/25/20 22 024 Discontinued(Me dication List Clean Up) Ondansetron HCl 8 MG Oral Tablet (Zofran)Indication s:Nausea TAKE 1 TABLET BY MOUTH EVERY 8 HOURS NEEDED FOR NAUSEA 60 Tablet 5 12/10/19 23 024 Discontinued(Re fill) UltiCare Pen [place] 31G X 5 MM (Insulin Pen Needle) use TWICE DAILY 200 Each 3 12/24/19 23 024 Discontinued metFORMIN HCl ER 500 MG Oral Tablet Extended Release 24 Hour (Glucophage XR) TAKE 1 TABLET BY MOUTH ONCE DAILY with dinner 90 Tablet 2 03/21/20 23 024 Discontinued oxyBUTYnin Chloride ER 10 MG Oral Tablet Extended Release 24 Hour (Ditropan XL) Take 1 Tablet by mouth in the morning. In the morning.. 90 Tablet 1 04/21/20 23 024 Discontinued Potassium Chloride Mag ER 20 MEQ Oral Tablet Extended Release TAKE 1 TABLET BY MOUTH EVERY MORNING when taking additional torsemide 30 Tablet 5 05/27/20 23 024 Discontinued Montelukast Sodium 10 MG Oral Tablet (Singulair)Indicat ions:Nasal sinus congestion,PND (post-nasal drip) TAKE 1 TABLET BY MOUTH ONCE DAILY 90 Tablet 3 06/14/20 23 024 Discontinued Torsemide 20 MG Oral Tablet (Demadex)Indicatio ns:Atherosclerotic heart disease of [place] coronary artery with other forms of angina pectoris (HCC),Hypertensive heart disease with chronic diastolic congestive heart failure (HCC) TAKE 1 TABLET BY MOUTH EVERY MORNING. MAY TAKE 1 ADDITIONAL TABLET NEEDED FOR SWELLING. 90 Tablet 3 07/08/19 24 024 Discontinued Xifaxan 550 MG Oral Tablet (rifAXIMin)Indicat ions:GONZALEZ (nonalcoholic steatohepatitis),C hronic liver disease and cirrhosis (HCC),Hepatic encephalopathy (HCC) TAKE 1 TABLET BY MOUTH TWICE DAILY 60 Tablet 5 07/16/19 24 024 Discontinued predniSONE 10 MG Oral Tablet (Deltasone)Indicat ions:Localized swelling of left foot,Pain of toe of left foot Take 5 tabs for 2 days, 4 tabs for 2 days, 3 tabs for 2 days, 2 tabs for 2 days 1 tab for 2 days 30 Tablet 07/24/19 24 024 Discontinued(Me dication List Clean Up) Pantoprazole Sodium 40 MG Oral Tablet Delayed Release (Protonix)Indicati ons:Gastroesophage al reflux disease without esophagitis TAKE 1 TABLET BY MOUTH TWICE DAILY every morning and every evening 180 Tablet 1 08/14/19 24 024 Discontinued Trulicity 4.5 MG/0.5ML Subcutaneous Solution Pen-injector (Dulaglutide) inject 4.5mg under the skin once per week 6 mL 1 09/08/19 24 024 Discontinued(Me dication/Dose Changed) Cephalexin 500 MG Oral Capsule (Keflex) Take 1 Capsule by mouth in the morning and 1 Capsule at noon and 1 Capsule before bedtime. 30 Capsule 10/08/19 24 024 Discontinued(Me dication List Clean Up) Tamsulosin HCl 0.4 MG Oral Capsule (Flomax) TAKE 1 CAPSULE BY MOUTH EVERY MORNING 90 Capsule 10/15/19 24 024 Discontinued Nitrofurantoin Monohyd Macro 100 MG Oral Capsule (Macrobid) Take 1 Capsule by mouth in the morning and 1 Capsule before bedtime. With food.. 60 Capsule 11/07/19 24 024 Discontinued Azithromycin 250 MG Oral Tablet (Zithromax Z-Sanchez) Take two tablets by mouth on first day, then 1 tablet daily until gone 6 Tablet 11/11/19 24 024 Discontinued(Oh dication List Clean Up) clonazePAM 0.5 MG Oral Tablet (KlonoPIN)Indicati ons:Bipolar I disorder, most recent episode depressed, moderate (HCC) TAKE ONE TABLET BY MOUTH THREE TIMES DAILY 90 Tablet 11/13/19 24 024 Discontinued(Re fill) documented as of this encounter (statuses as of 02/23/2024) Active Problems Problem Noted Date Diagnosed Date Chronic kidney disease, stage 3a 11/17/2023 Overview: [...] 02/18/2019 02:55 PM Urge incontinence 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-sport psychologist and ID Acute cystitis without hematuria 03/27/2021 [...] stenosis 10/31/2010 08/28/2018 Acute coronary syndrome 10/30/201001/04 [employer] Other*[id number] 02/02/2010 04/18/2014 Overview: [facility], Dr Althea [...] Protocol #2. 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 Sometimes true Within the past 12 months, t he food you bought just didn't last and you didn't have money to get more. Sometimes true Childcare Answer Date Recorded Do you feel overwhelmed with taking care of a child, family member or friend? No 11/24/2023 Does your family need help f inding childcare? (Household - for ages 0-17 years) Not on file 11/24/2023 Clothing Answer Date Recorded Have you been unable to get clothing when it was really needed? No 11/24/2023 Is your family able to get c lothes or diapers when needed? (Household - for ages 0-17 years) Not on file 11/24/2023 Personal Safety Answer Date Recorded Do you feel unsafe or have concerns for your saf ety? No 11/24/2023 Do you have concerns for you r family's safety? (Household - for ages 0-17 years) Not on file 11/24/2023 Utilities Answer Date Recorded Do you have trouble paying y our heating, water, or electric bill? No 11/24/2023 Is your family able to pay t he heat, water, or electric bill? (Household - for ages 0-17 years) Not on file 11/24/2023 Does your family have access to good internet? (Household - for ages 0-17 years) Not on file 11/24/2023 Employment Status Answer Date Recorded Are you unemployed or without regular income? No 11/24/2023 Does the household have a [facility] source [facility] income? (Household - for ages 0-17 years) Not on file 11/24/2023 Social Connections Answer Date Recorded How often do you feel lonely or isolated from th ose around you? Never 11/24/2023 Financial Resource Strain Answer Date R ecorded Do you have any trouble payi ng for your medications, or do you think you might in the future? No 11/24/2023 Does your family have troubl e paying for medicine? (Household - for ages 0-17 years) Not on file 11/24/2023 Transportation Needs Answer Date Record ed READ ONLY Do you have troubl e getting a ride to medical visits or work? Never True 11/24/2023 Does your family have a hard time getting a ride to doctors visits? (Household - for ages 0-17 years) Not on file 11/24/2023 Has lack of transportation k ept you from medical appointments, meetings, work, or from getting things needed for daily living? Check all that apply. (Adult - for ages 18 years and over) Not on file 11/24/2023 Do you (or your family) have trouble finding or paying for a ride (transportation)? (Household - for ages 0-17 years) Not on file 11/24/2023 Housing Stability Answer Date Recorded Do you currently live in a s helter or have no steady place to sleep at night? No 11/24/2023 READ ONLY Do you think you a re at risk of becoming homeless? No 11/24/2023 Does your family worry about paying for your home or becoming homeless? (Household - for ages 0-17 years) Not on file 0 11/24/2023 Are you homeless or worried that you might be in the future? (Adult - for ages 18 years and over) Not on file Are you (or your family) johan eless or worried that you might be in the future? (Household - for ages 0-17 years) Not on file Food Insecurity Answer Date Recorded Do you need food for this week? No 11/24/2023 Are you able to get enough f ood for your family? (Household - for ages 0-17 years) Not on file 11/24/2023 Does your family need food t his week? (Household - for ages 0-17 years) Not on file 11/24/2023 Do you always have enough fo od for your family? (Household - for ages 0-17 years) Not on file 11/24/2023 Sex and Gender Information Value Date Recorded Sex Assigned at Female 11/04/2018 4:56 PM EDT Gender Identity Female 11/04/2018 4:56 PM EDT Sexual Orientation Straight 11/04/2018 4: 56 PM EDT Job Start Date Occupation Industry Not on file Not on file Not on file documented as of this encounter Last Filed Vital Signs Vital Sign Reading Time Taken Comments Blood Pressure 124/60 11/18/2023 6:03 PM EDT Pulse 85 11/18/2023 6:03 PM EDT Temperature 36.1 C (97 F) 11/18/2023 6:03 PM EDT Respiratory Rate 20 11/18/2023 6:03 PM EDT Oxygen Saturation 95% 11/18/2023 6:03 PM EDT Inhaled Oxygen Concentration - - Weight - - Height 172.7 cm (5' 8") 11/18/2023 6:03 PM EDT p er patient Body Mass Index - - documented in this encounter Patient Instructions * Patient Instructions* Radha Jarquin LPN - 11/18/2023 6:03 PM EDT Patient Instructions - Fall Prevention (This education is for all patients over 65 regardless of symptoms) Remember to take your current medications as prescribed. In order to prevent falls, you are encouraged to: Exercise Utilize assistive/adaptive devices Avoid multifocal lenses when walking Avoid hazards in home Maintain a regular toileting schedule Any questions please contact our office. Preventing Falls in the Home (This education is for all patients over 65 regardless of symptoms) As you get older, falls are more likely. Thats because your reaction time slows. Your muscles and joints may also get stiffer, making them less flexible. Illness, medications, and vision changes can also affect your balance. A fall could leave you unable to live on your own. To make your home safer, follow these tips: Floors Put nonskid pads under area rugs Remove throw rugs Replace worn floor coverings Tack carpets firmly to each step on carpeted stairs. Put nonskid strips on the edges of uncarpeted stairs Keep floors and stairs free of clutter and cords Arrange furniture so there are clear pathways Clean up any spills right away Bathrooms Install grab bars in the tub or shower Apply nonskid strips or put a nonskid rubber mat in the tub or shower Sit on a bath chair to bathe Use bathmats with nonskid backing Lighting Keep a flashlight in each room Put a nightlight along the pathway between the bedroom and the bathroom [employer] Patient Education Copyright 2008 - 2010 [employer] except where otherwise noted Preventing Falls: Exercises to Improve Balance, Flexibility, Strength, and Staying Power (This education is for all patients over 65 regardless of symptoms) Certain types of exercises may help make you less likely to fall. Try the ones below. Or do other exercises that your healthcare provider suggests. Depending on your health, you may need to start slowly. Dont let that stop you. Even small amounts of exercise can help you. Be sure to talk to yourhealthcare provider before starting any exercise program. Improve Balance Many types of exercise can help improve balance. Virgilio chi and yoga are good examples. Heres another one to try. You can do it anytime and almost anywhere. Stand next to a counter or solid support. Push yourself up onto your tiptoes. Hold for 5 seconds. If you start to lose your balance, hold on to the counter. Rest and repeat 5 times. Work up to holding for 20 to 30 seconds, if you can. Increase Flexibility Being more flexible makes it easier for you to move around safely. Try exercises like the seated hamstring stretch. Sit in a chair and put one foot on a stool. Straighten your leg and reach with both hands down either side of your leg. Reach as far down your leg as you can. Hold for about 20 seconds. Go back to the starting position. Then repeat 5 times. Switch legs. Build Strength Resistance exercises help build strength. You can do them without equipment. Or you can use weights, elastic bands, or special machines. One such exercise is called the biceps curl. You can hold a 1 pound weight or even a can of soup. Do this exercise at least 3 times a week. Strive for everyday. Sit up straight in a chair. Keep your elbow close to your body and your wrist straight. Bend your arm, moving your hand up to your shoulder. Then slowly lower your arm. Repeat 5 times. Switch to the other arm. Build Your Staying Power Aerobic exercises make your heart and lungs stronger so you can keep moving longer. Walking and swimming are two of the best types of exercises you can do. Using a stationary bike is great, too. Find an aerobic exercise that you enjoy. Start slowly and build up. Even 5 minutes is helpful. Aimfor a goal of 30 minutes, at least 3 times a week. You dont have to do 30 minutes in one session. Break it up and walk a little throughout the day. More Helpful Tips Start easy. Slowly work up to doing more. Talk with your healthcare provider about the best exercises for you. Call senior centers or health clubs about exercise programs. If needed, have a family member watch you walk every so often to check your stability. Exercise with a friend. Choose an activity you both enjoy. Try exercises that you can do anytime, anywhere. Here are two examples. Have someone with you when you first try these: Practice walking by placing one foot right in front of the other. Stand up and sit down 10 times. Repeat this throughout the day. [employer] Patient Education Copyright 2008 - 2010 [employer] except where otherwise noted. Preventing Falls: Moving Safely Using a Cane or Walker (This education is for all patients over 65 regardless of symptoms) Keep the cane away from your feet so you dont trip. A walking aid, such as a cane or walker, can help you stay more independent and avoid falls. Remember to keep your walking aid within easy reach when youre in a chair or in bed. And learn how to use it safely so you dont injure yourself. Using a Cane If you have a stronger side, hold the cane on that side. Get your balance. Move the cane and your weaker leg forward. Support your weight on both the cane and your weaker side. Step with your stronger leg. Start again from step 1. If youre using a folding walker, be sure you know how to lock it open. Check that its locked open before each use. Using a Walker Roll the walker (or lift it, if youre using one without wheels) forward about 12 inches. Step forward with your weaker leg first. Use the walker to help keep your balance. Bring your other foot forward to the center of the walker. Start again from step 1. Helpful Tips Check with your healthcare provider about the right walking aid to use. Ask about a walker with a seat attached. Check the tips of your cane or walker to make sure they have nonskid covers. Move slowly from room to room. Dont kiran. Sit down to get dressed. Use a brenda pack or backpack to keep your hands free. Get help for jobs that mean climbing, even on a stepstool. [employer] Patient Education Copyright 2008 - 2010 [employer] except where otherwise noted. Urinary Incontinence Plan of Care Documentation: (This education is for all patients over 65 regardless of symptoms) Current medications reconciled. Patient encouraged to: Practice kegal exercises Provide education materials Use the restroom every 2 hours throughout the day Limit caffeine, alcohol, spicy foods and acidic foods Keep a bladder diary Limit fluid intake 3-4 hours before bed Lose weight Prevent constipation Take fluid pills at a time when you can get to the bathroom quickly Control sugar better if diabetic Limit fluid intake to 60 oz. per day Wear support stockings (TEDs)if you have edema Radha Jarquin LPN 11/18/2023 Kegel Exercises Kegel exercises dont require special clothing or equipment. Theyre easy to learn and simple to do. And if you do them right, no one can tell youre doing them, so they can be done almost anywhere. Your doctor, nurse, or physical therapist can answer any questions you have and help you get started. A Weak Pelvic Floor The pelvic floor muscles may weaken due to aging, and vaginal childbirth, injury, surgery, chronic cough, or lack of exercise. If the pelvic floor is weak, your bladder and other pelvic organs may sag out of place. The urethra may also open too easily and allow urine to leak out. Kegel exercises can help you strengthen your pelvic floor muscles so they can better support the pelvic organs and control urine flow. How Kegel Exercises Are Done Try each of the Kegel exercises described below. When youre doing them, try not to move your leg, buttock, or stomach muscles. While youre urinating, try to stop the flow of urine. Start and stop it as often as you can. Contract as if you were stopping your urine stream, but do it when youre not urinating. Tighten your rectum as if trying not to pass gas. Contract your anus, but dont move your buttocks. Helpful Hints Do your Kegels as often as you can. The more you do them, the faster youll feel the results. Pick an activity you do often as a reminder. For instance, do your Kegels every time you sit down. Tighten your pelvic floor before you sneeze, get up from a chair, cough, laugh, or lift. This protects your pelvic floor from injury and can help prevent urine leakage. Try to hold each Kegel for a slow count to five. You probably wont be able to hold them for thatlong at first, but keep practicing. It will get easier as your pelvic floor gets stronger. Eventually, special weights that you place in your vagina may be recommended to help make your Kegels even more effective. [employer] Patient Education Copyright 2009 - 2011 [employer] except where otherwise noted. Here are some helpful tips for your urinary incontinence: (This education is for all patients over 65 regardless of symptoms) Practice Kegel exercises Use the restroom every 2 hours throughout the day Limit caffeine, alcohol, spicy foods, and acidic foods Keep a bladder diary Limit fluid intake 3-4 hours before bed Lose weight Prevent constipation Take fluid pills at a time when can get to the bathroom quickly Control sugar better if diabetic Limit fluid intake to 60 oz. per day Any questions, please feel free to contact our office. documented in this encounter Progress Notes * Brian Domínguez MD - 11/18/2023 10:53 PM EDT Subjective: Angelina Ballard is a 73 year old female here today for Chief Complaint Patient presents with Status Check Return in 4 months Pt presents for routine recheck. Continues with issues with recurrent UTIs. Continues to follow with urology. Denies chest pain, shortness of breath, cough, nausea, vomiting, abd pain, dysuria, urinary frequency, nocturia, fever, melena, hematochezia, peripheral edema. States insurance will not cover basaglar - needs a change sent to pharmacy Past Medical History: Diagnosis Date ASCVD (arteriosclerotic [...] Laterality Date ANESTHESIA, HEART CATHETERIZATION 06/04/12 at [facility] ARTHROPLASTY KNEE TOTAL right CABG, ARTERIAL, SINGLE 02/15/2011 CORONARY ARTERY BYPASS GRAFT USING ARTERY 1 GRAFT performed by TIERNEY GUERRERO at OR [facility] CATHETERIZE LEFT HEART THRU SKIN 04/11/2009 LEFT HEART CATH, PERCUTANEOUS performed by GINGER FISHER at [facility] CATHETERIZE LEFT HEART THRU SKIN 02/01/2010 LEFT HEART CATH, PERCUTANEOUS performed by ALTHEA MANNING at [facility] CATHETERIZE LEFT HEART THRU SKIN 04/03/2010 LEFT HEART CATH, PERCUTANEOUS performed by GARCIA SOSA at [facility] COLONOSCOPY, DIAGNOSTIC (RECTUM) 05/20/2014 normal, repeat 10 yrs/done @ [facility] CORONARY ANGIOGRAPHY W/LEFT HEART CATH 10/29/2010 CORONARY ANGIOGRAPHY W/LEFT HEART CATH performed by ANNIE SEVILLA at [facility] EGD, FLEXIBLE, DIAGNOSTIC 12/05/2017 portal hypertensive gastropathy/[facility] EGD, FLEXIBLE, DIAGNOSTIC 10/25/2022 retained food / ESOPHAGOGASTRODUODENOSCOPY (EGD), FLEXIBLE, TRANSORAL, DIAGNOSTIC performed by Raghavendra Medrano MD at ENDOSCOPY [facility] EGD, W/ENDOSCOPIC US 06/26/2011 UPPER GI ENDOSCOPY ENDOSCOPIC ULTRASOUND performed by RACHEL BAHENA at ENDOSCOPY [facility] OTHER nerve biopsy right calf REMOVAL OF APPENDIX REMOVE ADDED SPINE LAMINA, 1 SEG 07/2007 Dr. Saleem L4-L5 REMOVE GALLBLADDER TOTAL ABD [...] 1 Kit 0 Blood Glucose Monitoring Suppl (Joroto VERIO) w/Device KIT Use as directed. Use as directed. 1 Kit 0 Spacer/Aero-Holding Chambers WISAM Use with inhaler. Wheezing/bronchitis. 1 Device 0 Lancet Devices (Origami LabsUCH DELICA LANCING DEV) [facility] Use four times a day Dx: E11.4 [...] a day with levemir 100 Each 5 Lactulose 10 GM/15ML Oral Solution (Constulose) [...] BY MOUTH EVERY 8 HOURS NEEDED FOR UVPCNF18 Tablet 5 UltiCare Pen [place] 31G X 5 MM (Insulin Pen Needle) use TWICE DAILY 200 Each 3 metFORMIN HCl ER 500 MG Oral Tablet Extended Release 24 Hour (Glucophage XR) TAKE 1 TABLET BY MOUTHONCE DAILY with dinner 90 Tablet 2 Budesonide-Formoterol Fumarate 160-4.5 MCG/ACT Inhalation Aerosol (Symbicort) Inhale 2 Puffs by mouth in the morning and 2 Puffs before bedtime. 10.2 g 12 oxyBUTYnin Chloride ER 10 MG Oral Tablet Extended Release 24 Hour (Ditropan XL) Take 1 Tablet by mouth in the morning. In the morning.. 90 Tablet 1 Atorvastatin Calcium 40 MG Oral Tablet (Lipitor) TAKE ONE TABLET BY MOUTH EVERY MORNING 90 Tablet 2 Potassium Chloride Mag ER 20 MEQ Oral Tablet Extended Release TAKE 1 TABLET BY MOUTH EVERY MORNINGwhen taking additional torsemide 30 Tablet 5 Ipratropium-Albuterol 0.5-2.5 (3) MG/3ML Inhalation Solution (Duoneb) Inhale 3 mL via nebulizer in the morning and 3 mL at noon and 3 mL in the evening and 3 mL before bedtime. 360 mL 3 Montelukast Sodium 10 MG Oral Tablet (Singulair) TAKE 1 TABLET BY MOUTH ONCE DAILY 90 Tablet 3 Torsemide 20 MG Oral Tablet (Demadex) TAKE 1 TABLET BY MOUTH EVERY MORNING. MAY TAKE 1 ADDITIONAL TABLET NEEDED FOR SWELLING. 90 Tablet 3 Xifaxan 550 MG Oral Tablet (rifAXIMin) TAKE 1 TABLET BY MOUTH TWICE DAILY 60 Tablet 5 Famotidine 40 MG Oral Tablet (Pepcid) TAKE 1 TABLET BY MOUTH EVERY MORNING 90 Tablet 3 FlyCastTouch Verio In Vitro Strip (Glucose Blood) use to test blood sugar 3 times daily 300 Strip 1 FlyCastTouch DelYlopo Lancets 33G USE UP TO FOUR TIMES A DAY Dx:E11.4 360 Each 5 Vitamin C 500 MG Oral Tablet (Ascorbic Acid) TAKE 1 TABLET BY MOUTH TWICE DAILY every morning and before bedtime 180 Tablet 3 Pantoprazole Sodium 40 MG Oral Tablet Delayed Release (Protonix) TAKE 1 TABLET BY MOUTH TWICE DAILYevery morning and every evening 180 Tablet 1 Estradiol 0.1 MG/GM Vaginal Cream (Estrace) Apply pea sized amount (0.5 gm) vaginally every other night 42.5 g 3 Levothyroxine Sodium 88 MCG Oral Tablet (Levoxyl) TAKE 1 TABLET BY MOUTH ONCE DAILY AT LEAST 30 MINUTES BEFORE BREAKFAST AND OTHER MEDICATIONS 90 Tablet 1 Trulicity 4.5 MG/0.5ML Subcutaneous Solution Pen-injector (Dulaglutide) inject 4.5mg under the skinonce per week 6 mL 1 PEG 3350 17 GM/SCOOP Oral Powder DISSOLVE ONE HEAPING TABLESPOON IN 8 OZ OF WATER OR JUICE DAILY ASNEEDED FOR CONSTIPATION. 510 g 5 Spironolactone 50 MG Oral Tablet (Aldactone) TAKE ONE TABLET BY MOUTH IN THE MORNING AND ONE TABLETBEFORE BEDTIME 180 Tablet 1 Tamsulosin HCl 0.4 MG Oral Capsule (Flomax) TAKE 1 CAPSULE BY MOUTH EVERY MORNING 90 Capsule 0 Gabapentin 300 MG Oral Capsule (Neurontin) TAKE 1 CAPSULE BY MOUTH TWICE DAILY 60 Capsule 5 Nitroglycerin 0.4 MG Sublingual Tablet Sublingual (Nitrostat) Place 1 Tablet under the tongue every5 minutes as needed for Pain, Chest. Max dose 3 tablets in 15 minutes 25 Tablet 5 Nystatin 581399 UNIT/GM External Powder (Nystop) Apply topically to affected area 3 times a day. Apply to right breast until rash resolved. 30 g 0 Nystatin 519224 UNIT/ML Mouth/Throat Suspension SWISH AND SWALLOW 5ML IN THE MORNING AND 5ML AT NOON AND 5 ML IN THE EVENING AND 5ML BEFORE BEDTIME, FOR THRUSH 240 mL 1 Metoprolol Succinate ER 25 MG Oral Tablet Extended Release 24 Hour (toPROL XL) TAKE 1 TABLET BY MOUTH EVERY MORNING 90 Tablet 0 Nitrofurantoin Monohyd Macro 100 MG Oral Capsule (Macrobid) Take 1 Capsule by mouth in the morning and 1 Capsule before bedtime. With food.. 60 Capsule 0 Vitamin D (Ergocalciferol) 1.25 MG (36319 UT) Oral Capsule (Drisdol) TAKE 1 CAPSULE BY MOUTH ONCE WEEKLY 12 Capsule 3 clonazePAM 0.5 MG Oral Tablet (KlonoPIN) TAKE ONE TABLET BY MOUTH THREE TIMES DAILY 90 Tablet 0 Insulin Glargine Solostar 100 UNIT/ML Subcutaneous Solution Pen-injector (Lantus SoloStar) Inject 35 units subcutaneously twice per day 30 mL 11 Zoster Vac Recomb Adjuvanted 50 MCG/0.5ML Intramuscular Suspension Reconstituted (Shingrix) Inject 0.5 mL into a large muscle now and repeat dose in 60 to 180 days (Patient not taking: Reported on 11/18/2023) 1 Each 1 MEDICAL INSTRUCTIONS Please arrange for as needed Home detention visit for obtaining straightcath urine sample for 06/25/23. 1 Each 1 No current facility-administered medications for this visit. Objective: BP 124/60 | Pulse 85 | Temp 36.1 C (97 F) (Temporal Artery) | Resp 20 | Ht 1.727 m (5' 8") Comment: per patient | SpO2 95% | BMI 34.82 kg/m | BSA 2.23 m GEN: NAD HEENT: Benign NECK: Supple with no LAD, TM, JVD CHEST: CTA B CV: RRR ABD: Soft, NT/ND, No HSM, NABS EXT: No c,c,e Assessment and Plan: Type 2 diabetes mellitus with stage 3a chronic kidney disease, with long-term current use of insulin (HCC) (Primary) - HEMOGLOBIN A1C - Insulin Glargine Solostar 100 UNIT/ML Subcutaneous Solution Pen-injector (Lantus SoloStar); Inject 35 units subcutaneously twice per day Risk and functional assessment Chronic liver disease and cirrhosis (HCC) Coronary artery disease involving [place]osh[place] coronary artery of [place] shosh[place] heart without angina pectoris Bipolar I disorder, most recent episode depressed, moderate (HCC) Hypothyroidism, unspecified type Dyslipidemia, goal LDL below 70 Recurrent UTI Urge incontinence -stable, continue same meds and follow up. Follow Up: Return in about 6 months (around 05/20/2024) for recheck. | For: recheck | Check-out note: Pt cannot make urogyn appt tomorrow - please make sure it is cancelled 36 min with pt and chart review. Brian Domínguez MD documented in this encounter Nursing Notes * Radha Jarquin LPN - 11/18/2023 6:03 PM EDT The patient has been properly identified by confirmation of name and date of . Chief Complaint Patient presents with Status Check Return in 4 months Insurance will not cover the Basaglar pen. Can something else be prescribed documented in this encounter Plan of Treatment Upcoming Encounters Date Type Department Care Team (Late st Contact Info) Description 02/23/2024 3:00 PM EDT Office Visit Urology, [facility] [address] [address] Alfredo Panda MD [address] [address] 02/25/2024 11:00 AM EDT Office Visit Cardiology, [facility] [address] [address] Haydee Pop CRNP [address] [address] 02/26/2024 2:30 PM EDT Home Visit [facility] [place], [facility] [address] [address] Al Doyle, KAT [address] [address] 03/02/2024 4:00 PM EDT [address], [address] [address] 03/09/2024 2:00 PM EDT Scheduled Telephone [facility], [facility] [address] [facility] [place] [address] Jesusita Saenz, KELLYN [address] [facility] [place] [address] 03/29/2024 11:00 AM EDT Home Visit [facility], [facility] [address] [facility] [place] [address] Kirby Valenzuela PA-C [address] [facility] [place] [address] 03/29/2024 1:45 PM EDT Office Visit Urology, [facility] [address] [facility] [place] [address] Alfredo Panda MD [address] [facility] [place] [address] 06/08/2024 6:00 PM EST Office Visit [facility] [address] [place] [phone] Brian Domínguez MD [address] [place] [address] Scheduled Procedures Name Priority Associated Diagnoses Date/Ti [...] (2 of 3) 10/04/2016 08/09/2016, 11/0 03/2016 Diabetic Eye Exam 06/05/2021 06/05/2020, , 04/27/2019, Additional history exists COVID-19 Vaccine ( season) 2023 06/10/2021, 08/29/2020, 08/01/2020 CKD PHOS USE SMARTSET 41190 10/24/202310/05, 02/18/2022, 02/17/2022, Additional history exists Influenza [...] COPD 12/30/2024 12/31/2023 CKD HGB USE SMARTSET 63561 02/18/202502/18, 02/19/2024, 12/11/2023, Additional history exists DTaP,Tdap,and [...] this encounter Medical Devices Implanted Type Area Acls Specialist Device Identifier Shelf Expiration Date Model / Serial / Lot Sut Steel 6 M654g - [id number] Implanted:Qty: 3 on 02/15/2011 at OR [facility] N/A: Chest DO NOT USE 01/15/2015 M654G / / [id number] Gaston Magdy 225-241 - [id number] Implanted:Qty: 1 on 02/15/2011 at OR [facility] N/A: Chest [employer] 225-241 / / [id number] Sut Steel 6 M654g - [id number] Implanted:Qty: 1 on 02/15/2011 at OR [facility] N/A: Chest DO NOT USE 07/21/2015 M654G / / [id number] documented as of this encounter Procedures Procedure Name Priority Date/Time Associated Diagnosis Comments HEMOGLOBIN A1C Routine 02/19/2024 1:58 PM EDT Type 2 diabetes mellitus with stage 3a chronic kidney disease, with long-term current use of insulin (HCC) documented in this encounter Results * (ABNORMAL) HEMOGLOBIN A1C (02/19/2024 1:58 PM EDT) Hemoglobin A1C 5.9(H) 4.0 - 5.6 % 02/20/2024 2:18 AM EDT LAB[facility]ATORY [facility] Comment:The use of HbA1c to monitor glycemic status is based on normal hemoglobin and HbA composition. This test should not be used in patients with abnormal hemoglobin that affects the half life of the red blood cell or the in vivo glycation rates. Estimated Average Glucose 123 <126 mg/dL 02/20/2024 2:18 AM EDT LAB[facility]ATORY [facility] Blood Venous blood specimen / Unknown Venipuncture / Unknown 02/19/2024 1:58 PM EDT 02/19/2024 1:59 PM EDT Brian Domínguez MD LAB BLOOD ORDERABL ES LAB[facility]ORY [facility] [address] [place] [address] documented in this encounter Visit Diagnoses Diagnosis Type 2 diabetes mellitus with stage 3a chronic kidney disease, with long-term current use of insulin (HCC)- Primary Risk and functional assessment Screening for unspecified condition Chronic liver disease and cirrhosis (HCC) Unspecified chronic liver disease without mention of alcohol Coronary artery disease involving [place] coronary artery of [place] heart without angina pectoris Bipolar I disorder, most recent episode depressed, moderate (HCC) Bipolar I disorder, most recent episode (or current) depressed, moderate Hypothyroidism, unspecified type Dyslipidemia, goal LDL below 70 Other and unspecified hyperlipidemia Recurrent UTI Urinary tract infection, site not specified Urge incontinence documented in this encounter Advance Directives Documents on File Type Date Recorded 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
--- OUTSIDE RECORDS SUMMARY | 2024-03-03 07:59 | External Medical Summary ---
Author Name Unknown Address Unknown Organization K01:LABORATORY [facility] - [address] [facility] [address] Laboratory Report Ordering Provider Test Date Status CARMENMARIA 02/19/2024 13:58:52 Final Observation Date Value Abnormality Reference (Units ) Status BUN 02/19/2024 13:58:52 13 6-20 (mg/dL) Final Creatinine 02/19/2024 13:58:52 1.2 Above high normal 0.5-1.0 (mg/dL) Final Glomerular filtration rate/1.73 sq M.predicted [Volume Rate/Area] in Serum, Plasma or Blood by Creatinine-based formula (CKD-EPI) 02/19/2024 13:58:52 47 Below low normal >=60 (mL/min) Final eGFR is calculated based on the CKD-EPI 2020 equation. Sodium 02/19/2024 13:58:52 133 Below low normal 135 -146 (mmol/L) Final Potassium 02/19/2024 13:58:52 3.9 3.5-5.1 (m mol/L) Final Cl 02/19/2024 13:58:52 94 Below low normal 98- 107 (mmol/L) Final CO2 02/19/2024 13:58:52 27 22-32 (mmo l/L) Final Anion gap 02/19/2024 13:58:52 12 7-15 (mmol /L) Final Glucose 02/19/2024 13:58:52 103 70-120 (mg /dL) Final Albumin 02/19/2024 13:58:52 3.8 3.8-5.0 (g /dL) Final AST (Aspartate aminotransferase) 02/19/2024 13:58:52 19 10-35 (U/L) Fin al Alk Phos 02/19/2024 13:58:52 133 Above high normal 35 -130 (U/L) Final Bilirubin, Total 02/19/2024 13:58:52 0.5 <=1 .2 (mg/dL) Final Calcium 02/19/2024 13:58:52 9.2 8.4-10.2 ( mg/dL) Final Protein 02/19/2024 13:58:52 6.2 6.0-8.3 (g /dL) Final ALT (Alanine aminotransferase) 02/19/2024 13:58:52 14 10-35 (U/L) Dilan hahn Performing Location LABORATORY [facility] - [address] [facility] [address]
--- OUTSIDE RECORDS SUMMARY | 2024-03-03 07:59 | External Medical Summary ---
Author Name Unknown Address Unknown Organization K01:LABORATORY [facility] - [address] [facility] [address] Laboratory Report Ordering Provider Test Date Status MARIA MORALES 02/19/2024 13:58:52 Final Observation Date Value Abnormality Reference (Units ) Status SYNC LEUKOCYTES IN BLOOD BY AUTOMATED COUNT 02/19/2024 13:58:52 8.92 4.00-10.80 (K/uL) Final Segs 02/19/2024 13:58:52 72.9 40.0-75.0 (%) Final Lymphs % 02/19/2024 13:58:52 17.2 Below low normal 18.0-42.0 (%) Final Monos 02/19/2024 13:58:52 5.9 1.0-11.0 (%) Final Eosinophils 02/19/2024 13:58:52 2.4 0.0-6.0 (%) Final Basos 02/19/2024 13:58:52 0.6 0.0-2.0 (%) Final Immature Granulocyte, Percent 02/19/2024 13:58:52 1.0 0.0-2.0 (%) Final Absolute Segs 02/19/2024 13:58:52 6.51 1.80-7.70 (K/uL) Final Lymphs, absolute 02/19/2024 13:58:52 1.53 1.00-4.80 (K/ul) Final Monos, Abs 02/19/2024 13:58:52 0.53 0.00-1.10 (K/uL) Final Eos, Abs 02/19/2024 13:58:52 0.21 0.00-0.70 (K/uL) Final Basos, Abs 02/19/2024 13:58:52 0.05 0.00-0.20 (K/uL) Final Immature Granulocytes, Number 02/19/2024 13:58:52 0.09 0.00-0.20 (K/uL) Final Performing Location LABORATORY [facility] - [address] [facility] [address]
--- OUTSIDE RECORDS SUMMARY | 2024-03-03 07:59 | External Medical Summary | Summary of Care ---
Author Name Unknown Organization [facility] Address [address] [place] [address] Phone [phone] Care Team Providers Care Metallurgical Lab Technician Name Role Phone Brian Domínguez MD Primary Care Provider [phone] Reason for Visit * Reason Comments Outpatient Testing Encounter Details Date Type Department Care Team (Late st Contact Info) Description 02/19/2024 2:00 PM EDT Laboratory Laboratory, [address] [address] [address], Specimen Drop Off [address] [address] Gastroesophageal reflux disease without esophagitis; [...] Status venlafaxine XR (EFFEXOR XR) 150 MG [id number]:Dep ression Take 1 Cap by mouth daily. [...] Kit 11/18/2017 Active Blood Glucose Monitoring Suppl (Sticher VERIO) w/Device KIT Use as directed. Use as directed. 1 Kit 10/31/2018 Active Spacer/Aero-Holding Chambers WISAM Use with inhaler. Wheezing/bronchitis . 1 Device 04/08/2019 Active Lancet Devices (DesktoneTOUCH DELICA LANCING DEV) MISC Use four times [...] INSTRUCTIONS Please arrange for as needed Home retirement visit for obtaining straight cath urine sample [...] minutes 25 Tablet 5 10/16/2023 Active Nystatin 372668 UNIT/GM External Powder (Nystop)Indications :Candidal intertrigo Apply topically to affected area 3 times a day. Apply to right breast until rash resolved. 30 g 10/16/2023 Active Nystatin 226667 UNIT/ML Mouth/Throat Suspension SWISH AND SWALLOW 5ML IN THE MORNING AND 5ML AT NOON AND 5 ML IN THE EVENING AND 5ML BEFORE BEDTIME, FOR THRUSH 240 mL 1 10/16/2023 Active Metoprolol Succinate ER 25 MG Oral Tablet Extended Release 24 Hour (toPROL XL)Indications:HTN, goal below 130/80 TAKE 1 TABLET BY MOUTH EVERY MORNING 90 Tablet 10/25/2023 Active Vitamin D (Ergocalciferol) 1.25 MG (73463 UT) Oral Capsule (Drisdol)Indication s:Vitamin D deficiency [...] Oral Tablet (Demadex)Indication s:Atherosclerotic heart disease of [place] coronary artery [...] Euvolemic today Coronary artery disease invo lving [place] coronary artery of [place] heart without angina pectoris 11/15/2021 Last Assessment [...] 01/16/22 Moderate aortic stenosis 05/06/2018 Anxiety 08/05/2017 Kjdyqwv-Wrqbe-Zsibr disease 06/27/2015 Last Assessment & Plan: Frequent [...] is giving this. 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-commission auditor and ID Acute cystitis without hematuria 03/27/2021 07/08/2022 Pelvic pain 03/27/2021 02/03/2024 Type 2 diabetes mellitus wit h diabetic neuropathy 09/07/2018 11/07/2023 Overview: duplicate Mild protein-calorie malnutrition 05/07/2018 04/29/2019 Diabetes mellitus with neuropathy 05/06/2018 09/07/2018 Other cirrhosis of liver 05/06/2018 Atherosclerotic heart diseas e of [place] [...] stenosis 10/31/2010 08/28/2018 Acute coronary syndrome 10/30/201001/04 [employer] Other*[id number] 02/02/2010 04/18/2014 Overview: [place] [facility], Dr Joel CASAS Obesity, morbid (more [...] 06/17/2006 01/21/2014 intermediate designer current use of ant icoagulant therapy 06/17/2006 [...] 02/23/2024 3:00 PM EDT Office Visit Urology, [facility] [address] [address] Alfredo Panda MD [address] [address] 02/25/2024 11:00 AM EDT Office Visit Cardiology, [facility] [address] [address] Haydee Pop CRNP [address] [facility] [place] [address] 03/02/2024 4:00 PM EDT [address] Radiology, [address] [address] 03/09/2024 2:00 PM EDT Scheduled Telephone [facility], [facility] [address] [facility] [place] [address] Jesusita Saenz, KELLYN [address] [facility] [address] [place] [address] 03/29/2024 11:00 AM EDT Home Visit [facility], [facility] [address] [address] Kirby Valenzuela PA-C [address] [place] [address] 03/29/2024 1:45 PM EDT Office Visit Urology, [facility] [address] [address] Alfredo Panda MD [address] [address] 06/08/2024 6:00 PM EST Office Visit [facility] [address] [place] [address] Brian Domínguez MD [address] [place] [address] Pending Results Name Type Priority [...] 06/10/2021, 08/29/2020, 08/01/2020 CKD PHOS USE SMARTSET 64292 10/24/202310/05, 02/18/2022, 02/17/2022, Additional history exists Influenza [...] Additional history exists CKD HGB USE SMARTSET 33298 12/10/202412/10, 08/04/2023, 08/04/2023, Additional history exists O2 [...] this encounter Medical Devices Implanted Type Area Bioprocess Development Engineer Device Identifier Shelf Expiration Date Model / Serial / Lot Sut Bob 6 M654g - [id number] Implanted:Qty: 3 on 02/15/2011 at OR [facility] [place] N/A: Chest DO NOT USE 01/15/2015 M654G / / [id number] Gaston Fuentesham 225-241 - [id number] Implanted:Qty: 1 on 02/15/2011 at OR [facility] [place] N/A: Chest [employer] 225-241 / / [id number] Sut Steel 6 M654g - [id number] Implanted:Qty: 1 on 02/15/2011 at [place] [facility] [place] N/A: Chest DO NOT USE 07/21/2015 M654G / / [id number] documented as of this encounter Visit Diagnoses Diagnosis Gastroesophageal reflux disease without esophagitis Esophageal reflux Chronic kidney disease, stage 3a (HCC) Encounter for long-term (current) use of medications Encounter for long-term (current) use of other medications Confusion Unspecified psychosis Altered mental status, unspecified altered mental status type documented in this encounter Advance Directives Documents on File Type Date Recorded 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
--- OUTSIDE RECORDS SUMMARY | 2024-03-03 07:59 | External Medical Summary | Summary of Care ---
Author Name Unknown Organization [facility] Address [address] [place] [address] Phone [phone] Care Team Providers Care Director Of Rehabilitation And Wellness Name Role Phone Brian Domínguez MD Primary Care Provider [phone]- [phone] Reason for Visit * Reason Onset Date Comments Fax 11/20/2023 Encounter Details Date Type Department Care Team (Late st Contact Info) Description 11/20/2023 Telephone [facility] [address] [place] [address] Brian Domínguez MD [address] [place] [address] Fax Allergies Active Allergy Reactions Criticality Noted Date Comments Propoxyphene Hcl Rash Low 10/29/2010 Fentanyl Diarrhea Low 04/26/2010 anxiety Methocarbamol Medium 10/05/2020 Other reaction(s): Delirium Methocarbamol Low 04/15/2007 Zolpidem Low 10/05/2020 Other reaction(s): Confusion documented as of this encounter (statuses as of 02/19/2024) Medications Medication Sig Dispensed Refills Start Date End Date Status venlafaxine XR (EFFEXOR XR) 150 MG [id number]:De pression Take 1 Cap by mouth daily. [...] Kit 11/18/2017 Active Blood Glucose Monitoring Suppl (Red TricycleTOUCH VERIO) w/Device KIT Use as directed. Use as directed. 1 Kit 10/31/2018 Active Spacer/Aero-Holdin g Chambers WISAM Use with inhaler. Wheezing/bronchitis . 1 Device 04/08/2019 Active Lancet Devices (ONETOUCH DELICA LANCING DEV) [...] 03/27/2020 Active Fluticasone Propionate 50 MCG/ACT Nasal SuspensionIndicati ons:PND (post-nasal drip) Administer 2 Sprays into each nostril daily. 9.9 mL 1 11/11/2020 Active Lactulose 10 GM/15ML Oral Solution (Constulose)Indica [...] ABDOMINAL PAIN 120 Capsule 3 12/08/2022 Active Budesonide-Formote rol Fumarate 160-4.5 MCG/ACT Inhalation Aerosol (Symbicort) Inhale 2 Puffs by mouth in the morning and 2 Puffs before bedtime. 10.2 g 12 03/24/2023 Active Atorvastatin Calcium 40 MG Oral Tablet (Lipitor)Indicatio ns:Dyslipidemia, goal LDL below 70 TAKE ONE TABLET BY MOUTH EVERY MORNING 90 Tablet 2 05/15/2023 Active Ipratropium-Albute rol 0.5-2.5 (3) MG/3ML Inhalation [...] INSTRUCTIONS Please arrange for as needed Home usp visit for obtaining straight cath urine sample for 06/25/23. 1 Each 1 06/24/2023 Active Famotidine 40 MG Oral Tablet (Pepcid)Indication s:Gastroesophageal reflux disease with esophagitis without hemorrhage TAKE 1 TABLET BY MOUTH EVERY MORNING 90 Tablet 3 07/19/2023 Active MDLIVETouch Verio In Vitro Strip (Glucose Blood)Indications: Type [...] 01/20/2024 Levothyroxine Sodium 88 MCG Oral Tablet (Levoxyl)Indicatio ns:Hypothyroidism TAKE 1 TABLET BY MOUTH ONCE DAILY AT LEAST 30 MINUTES BEFORE BREAKFAST AND OTHER MEDICATIONS 90 Tablet 1 09/08/2023 Active PEG 3350 17 GM/SCOOP Oral Powder DISSOLVE ONE HEAPING TABLESPOON IN 8 OZ OF WATER OR JUICE DAILY NEEDED FOR CONSTIPATION. 510 g 5 09/22/2023 Active Spironolactone 50 MG Oral Tablet (Aldactone)Indicat ions:GONZALEZ (nonalcoholic steatohepatitis),P ortal hypertension (HCC),Chronic liver disease and cirrhosis (HCC),Portal hypertensive gastropathy (HCC) TAKE ONE TABLET BY MOUTH IN THE MORNING AND ONE TABLET BEFORE BEDTIME 180 Tablet 1 10/07/2023 Active Gabapentin 300 MG Oral Capsule (Neurontin)Indicat ions:Lumbar spondylosis TAKE 1 CAPSULE BY MOUTH TWICE DAILY 60 Capsule 5 10/14/2023 Active Nitroglycerin 0.4 MG Sublingual Tablet Sublingual (Nitrostat)Indicat ions:Chronic coronary artery disease Place 1 Tablet under the tongue every 5 minutes as needed for Pain, Chest. Max dose 3 tablets in 15 minutes 25 Tablet 5 10/16/2023 Active Nystatin 685649 UNIT/GM External Powder (Nystop)Indication s:Candidal intertrigo Apply topically to affected area 3 times a day. Apply to right breast until rash resolved. 30 g 10/16/2023 Active Nystatin 974180 UNIT/ML Mouth/Throat Suspension SWISH AND SWALLOW 5ML [...] 10/25/2023 Active Vitamin D (Ergocalciferol) 1.25 MG (37243 UT) Oral Capsule (Drisdol)Indicatio ns:Vitamin D deficiency TAKE 1 CAPSULE BY MOUTH ONCE WEEKLY 12 Capsule 3 11/10/2023 Active Insulin Glargine Solostar 100 UNIT/ML Subcutaneous Solution Pen-injector (Lantus SoloStar)Indicatio ns:Type 2 diabetes mellitus with stage 3a chronic kidney disease, with long-term current use of insulin (HCC) Inject 35 units subcutaneously twice per day 30 mL 11 11/18/2023 Active documented as of this encounter (statuses [...] Euvolemic today Coronary artery disease invo lving [place] coronary artery of [place] heart without angina pectoris 11/15/2021 Last Assessment [...] (H) 02/18/2019 02:55 PM Urge incontinence 03/27/2021 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 and ID Acute cystitis without hematuria 03/27/2021 07/08/2022 Pelvic pain 03/27/2021 02/03/2024 Type 2 diabetes mellitus wit h diabetic neuropathy 09/07/2018 11/07/2023 Overview: duplicate Mild protein-calorie malnutrition 05/07/2018 04/29/2019 Diabetes mellitus with neuropathy 05/06/2018 09/07/2018 Other cirrhosis of liver 05/06/2018 Atherosclerotic heart diseas e of [place] coronary [...] stenosis 10/31/2010 08/28/2018 Acute coronary syndrome 10/30/201001/04 [place] Research Other*[id number] 02/02/2010 04/18/2014 Overview: [place] [facility], Dr Joel Kwon PI Obesity, morbid [...] Duplicate Protocol #2. 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 * Telephone Encounter - Eryn Gibson OSA - 11/20/2023 11:55 AM EDT Please fax office notes from 10/15 office visit to [facility] @ [phone] documented in this encounter Plan of Treatment Upcoming Encounters Date Type Department Care Team (Late st Contact Info) Description 02/23/2024 3:00 PM EDT Office Visit Urology, [facility] [address] [place] [address] Alfredo Panda MD [address] [address] 02/25/2024 11:00 AM EDT Office Visit Cardiology, [facility] [address] [address] Haydee Pop CRNP [address] [place] [address] 03/02/2024 4:00 PM EDT Imaging Radiology, [facility] [address] [place] [address] 03/09/2024 2:00 PM EDT Scheduled Telephone [facility], [facility] [address] [facility] [place] [address] Jesusita Saenz, RDN [address] [facility] [place] [address] 03/29/2024 11:00 AM EDT Home Visit [facility], [facility] [address] [place] [address] Kirby Valenzuela PA-C [address] [facility] [place] [address] 03/29/2024 1:45 PM EDT Office Visit Urology, [facility] [address] [facility] [place] [address] Alfredo Panda MD [address] [facility] [place] [address] 06/08/2024 6:00 PM EST Office Visit [facility] [address] [place] [phone] Brian Domínguez MD [address] [place] [address] Scheduled Procedures Name Priority Associated Diagnoses Date/Ti [...] 06/10/2021, 08/29/2020, 08/01/2020 CKD PHOS USE SMARTSET 21037 10/24/202310/05, 02/18/2022, 02/17/2022, Additional history exists Influenza [...] Additional history exists CKD HGB USE SMARTSET 69068 12/10/202412/10, 08/04/2023, 08/04/2023, Additional history exists O2 [...] this encounter Medical Devices Implanted Type Area Spool Fixer Device Identifier Shelf Expiration Date Model / Serial / Lot Sut Steel 6 M654g - [id number] Implanted:Qty: 3 on 02/15/2011 at OR [facility] N/A: Chest DO NOT USE 01/15/2015 M654G / / [id number] Band Magdy 225-241 - [id number] Implanted:Qty: 1 on 02/15/2011 at OR [facility] N/A: Chest [employer] 225-241 / / [id number] Sut Steel 6 M654g - [id number] Implanted:Qty: 1 on 02/15/2011 at OR [facility] N/A: Chest DO NOT USE 07/21/2015 M654G / / [id number] documented as of this encounter Advance Directives Documents on File Type Date Recorded 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
--- OUTSIDE RECORDS SUMMARY | 2024-03-03 07:59 | External Medical Summary | Summary of Care ---
Author Name Unknown Organization [facility] Address [address] [place] [address] Phone [phone] Care Team Providers Care Director Of Operations For Therapy Name Role Phone Brian Domínguez MD Primary Care Provider +1- [phone] Reason for Visit * Reason Onset Date Comments Home Health 02/12/2024 Encounter Details Date Type Department Care Team (Late st Contact Info) Description 02/12/2024 Telephone [facility] [address] [place] [address] Brian Domínguez MD [address] [place] [address] Home Health Allergies Active Allergy Reactions Criticality Noted Date Comments Propoxyphene Hcl Rash Low 10/29/2010 Fentanyl Diarrhea Low 04/26/2010 anxiety Methocarbamol Medium 10/05/2020 Other reaction(s): Delirium Methocarbamol Low 04/15/2007 Zolpidem Low 10/05/2020 Other reaction(s): Confusion documented as of this encounter (statuses as of 02/19/2024) Medications Medication Sig Dispensed Refills Start Date End Date Status venlafaxine XR (EFFEXOR XR) 150 MG [id number]:Dep ression Take 1 Cap by mouth daily. [...] Kit 11/18/2017 Active Blood Glucose Monitoring Suppl (AccordTOUCH VERIO) w/Device KIT Use as directed. Use [...] minutes 25 Tablet 5 10/16/2023 Active Nystatin 315347 UNIT/GM External Powder (Nystop)Indications :Candidal intertrigo Apply topically to affected area 3 times a day. Apply to right breast until rash resolved. 30 g 10/16/2023 Active Nystatin 741897 UNIT/ML Mouth/Throat Suspension SWISH AND SWALLOW 5ML IN THE MORNING AND 5ML AT NOON AND 5 ML IN THE EVENING AND 5ML BEFORE BEDTIME, FOR THRUSH 240 mL 1 10/16/2023 Active Metoprolol Succinate ER 25 MG Oral Tablet Extended Release 24 Hour (toPROL XL)Indications:HTN, goal below 130/80 TAKE 1 TABLET BY MOUTH EVERY MORNING 90 Tablet 10/25/2023 Active Vitamin D (Ergocalciferol) 1.25 MG (85045 UT) Oral Capsule (Drisdol)Indication s:Vitamin D deficiency [...] Oral Tablet (Demadex)Indication s:Atherosclerotic heart disease of [place] coronary artery with other forms of angina [...] every evening 180 Tablet 1 02/09/2024 Active documented as of this encounter (statuses [...] Euvolemic today Coronary artery disease invo lving [place] coronary artery of qu[place] heart without angina pectoris 11/15/2021 Last Assessment [...] (H) 02/18/2019 02:55 PM Urge incontinence 03/27/2021 long-term (current) use of [...] 01/16/22 Moderate aortic stenosis 05/06/2018 Anxiety 08/05/2017 Mrsxzli-Wlhde-Clwne disease 06/27/2015 Last Assessment & Plan: Frequent [...] 05/12/2023 Open wound of left heel 03/12/2022 0108/2022 Last Assessment & Plan: Pressure ulcer -off [...] also to see uro-gynecology teacher and ID Acute cystitis without hematuria 03/27/2021 07/08/2022 Pelvic pain 03/27/2021 02/03/2024 Type 2 diabetes mellitus wit h diabetic neuropathy 09/07/2018 11/07/2023 Overview: duplicate Mild protein-calorie malnutrition 05/07/2018 04/29/2019 Diabetes mellitus with neuropathy 05/06/2018 09/07/2018 Other cirrhosis of liver 05/06/2018 Atherosclerotic heart diseas e of [place] coronary artery with other forms of angina [...] 10/31/2010 08/28/2018 Acute coronary syndrome 10/30/201001/04 [place] Research Other*[id number] 02/02/2010 04/18/2014 Overview: [place] Registry, Dr Joel CASAS Obesity, morbid (more [...] encounter Miscellaneous Notes * Telephone Encounter - Cesar Anand LPN - 02/19/2024 12:58 PM EDT Lulu from [facility] requesting lab orders that placed to be faxed. She is currentlywith the patient and going to draw the lab's. Faxed to [facility], received confirmation that the transmission was successful. * Telephone Encounter - Brian Domínguez MD - 02/13/2024 9:40 AM EDT Orders signed * Telephone Encounter - Liz Lazcano LPN - 02/12/2024 9:26 AM EDT Charlene, nurse calling from [facility] Family requesting to have labs drawn at next HH visit. Patient is having some confusion, they wouldlike CMP, CBC and ammonia level checked. Next Correction HH visit is scheduled for 02/19/2024 Pended CBC and CMP, unable to find ammonia level. [facility] Home Health documented in this encounter Plan of Treatment Upcoming Encounters Date Type Department Care Team (Late st Contact Info) Description 02/23/2024 3:00 PM EDT Office Visit Urology, [facility] [address] [address] Alfredo Panda MD [address] [address] 02/25/2024 11:00 AM EDT Office Visit Cardiology, [facility] [address] [address] Haydee Pop CRNP [address] [address] 03/02/2024 4:00 PM EDT Imaging Radiology, [address] [place] [address] 03/09/2024 2:00 PM EDT Scheduled Telephone [facility], [facility] [address] [facility] [place] [address] Jesusita Saenz, RDN [address] [facility] [place] [address] 03/29/2024 11:00 AM EDT Home Visit [facility], [facility] [address] [facility] [place] [address] Kirby Valenzuela PA-C [address] [facility] [place] [address] 03/29/2024 1:45 PM EDT Office Visit Urology, [facility] [address] [facility] [place] [address] Alfredo Panda MD [address] [place] [address] 06/08/2024 6:00 PM EST Office Visit [facility] [address] [place] [phone] Brian Domínguez MD [address] [place], [place] [phone] Scheduled Orders Name Type Priority Associated Diagnoses Orde r Schedule CBC WITH WBC DIFFERENTIAL Lab Routine Confusion Altered mental status, unspecified altered mental status type Expected: 02/13/2024, Expires: 02/11/2025 COMPREHENSIVE METABOLIC PANEL Lab Routine Confusion Altered mental status, unspecified altered mental status type Expected: 02/13/2024, Expires: 02/11/2025 AMMONIA Lab Routine Confusion Altered mental status, unspecified altered mental status type Expected: 02/13/2024, Expires: 02/12/2025 Scheduled Procedures Name Priority Associated Diagnoses Date/Ti [...] Vaccines (2 of 3) 10/04/2016 08/09/2016, 11/03/2016 Diabetic Eye Exam 06/05/2021 06/05/2020, , 04/27/2019, Additional history exists COVID-19 Vaccine ( season) 2023 06/10/2021, 08/29/2020, 08/01/2020 CKD PHOS USE SMARTSET 31020 10/24/202310/05, 02/18/2022, 02/17/2022, Additional history exists Influenza [...] Additional history exists CKD HGB USE SMARTSET 33821 12/10/202412/10, 08/04/2023, 08/04/2023, Additional history exists O2 [...] this encounter Medical Devices Implanted Type Area File Keeper Device Identifier Shelf Expiration Date Model / Serial / Lot Sut Steel 6 M654g - [id number] Implanted:Qty: 3 on 02/15/2011 at OR [facility] N/A: Chest DO NOT USE 01/15/2015 M654G / / [id number] Band Magdy 225-241 - [id number] Implanted:Qty: 1 on 02/15/2011 at OR [facility] N/A: Chest [employer] 225-241 / / [id number] Sut Steel 6 M654g - [id number] Implanted:Qty: 1 on 02/15/2011 at OR [facility] N/A: Chest DO NOT USE 07/21/2015 M654G / / [id number] documented as of this encounter Visit Diagnoses Diagnosis Confusion- Primary Unspecified psychosis Altered mental status, unspecified altered mental status type documented in this encounter Advance Directives Documents on File Type Date Recorded 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
--- OUTSIDE RECORDS SUMMARY | 2024-03-03 08:00 | External Medical Summary | Summary of Care ---
Author Name Unknown Organization [facility] Address [address] [place] [address] Phone [phone] Care Team Providers Care Gambling Broker Name Role Phone Carmen Sifuentes MD Primary Care Provider [phone] Reason for Visit * Reason Onset Date Comments Medication Refill 02/12/2024 Encounter Details Date Type Department Care Team (Late st Contact Info) Description 02/12/2024 Refill [facility] [address] [place] [address] Carmen Sifuentes MD [address] [place] [address] Bipolar I disorder, most recent episode depressed, moderate (HCC) Allergies Active Allergy Reactions Criticality Noted Date Comments Propoxyphene Hcl Rash Low 10/29/2010 Fentanyl Diarrhea Low 04/26/2010 anxiety Methocarbamol Medium 10/05/2020 Other reaction(s): Delirium Methocarbamol Low 04/15/2007 Zolpidem Low 10/05/2020 Other reaction(s): Confusion documented as of this encounter (statuses as of 02/12/2024) Medications Medication Sig Dispensed Refills Start Date End Date Status venlafaxine XR (EFFEXOR XR) 150 MG [id number]:Dep ression Take 1 Cap by mouth daily. [...] Use as directed once daily 1 Kit 8 Active Blood Glucose Monitoring Suppl (Vaunte VERIO) w/Device KIT Use as directed. Use as directed. 1 Kit 9 Active Spacer/Aero-Holding Chambers WISAM Use with inhaler. Wheezing/bronchiti s. 1 Device 9 Active Lancet Devices (Vaunte DELICA LANCING DEV) MISC Use four times a day Dx: E11.4 1 Each 0 Active venlafaxine XR (EFFEXOR XR) 75 MG CP24 Take 1 Capsule by mouth in the morning. With 150mg tablet. Active traZODone (DESYREL) 50 MG Tablet Take 2 Tablets by mouth at bedtime. 30 Tab 5 0 Active Aspirin EC 81 MG Oral Tablet Delayed Release Take 1 Tablet by mouth in the morning. 0 Active Fluticasone Propionate 50 MCG/ACT Nasal SuspensionIndicatio ns:PND (post-nasal drip) Administer 2 Sprays into each nostril daily. 9.9 mL 1 1 Active Lactulose 10 GM/15ML Oral Solution (Constulose)Indicat ions:Chronic liver disease and cirrhosis (HCC) TAKE 45 ML BY MOUTH TWICE DAILY DIRECTED 2700 mL 5 2 Active Additional Information Patient taking differently: TID(AM/NOON/HS), Reported on 03/03/2023 lamoTRIgine 100 MG Oral Tablet (LaMICtal) Take 1 Tablet by mouth every morning. 30 Tablet 5 2 Active AIRS Disposable Nebulizer Kit Use as directed 1 Kit 3 Active lamoTRIgine 25 MG Oral Tablet (LaMICtal) 1 Tablet. Taking 2 at bedtime and 1 in morning 3 Active Albuterol Sulfate HFA 108 (90 Base) MCG/ACT Inhalation Aerosol SolutionIndications :Cough Use two puffs four times a day, as directed 18 g 3 3 Active Dicyclomine HCl 10 MG Oral Capsule (Bentyl)Indications :Abdominal pain TAKE ONE CAPSULE BY MOUTH FOUR TIMES DAILY NEEDED FOR ABDOMINAL PAIN 120 Capsule 3 3 Active Budesonide-Formoter ol Fumarate 160-4.5 MCG/ACT Inhalation Aerosol (Symbicort) Inhale 2 Puffs by mouth in the morning and 2 Puffs before bedtime. 10.2 g 12 3 Active Atorvastatin Calcium 40 MG Oral Tablet (Lipitor)Indication s:Dyslipidemia, goal LDL below 70 TAKE ONE TABLET BY MOUTH EVERY MORNING 90 Tablet 2 3 Active Ipratropium-Albuter ol 0.5-2.5 (3) MG/3ML Inhalation Solution (Duoneb) Inhale 3 mL via nebulizer in the morning and 3 mL at noon and 3 mL in the evening and 3 mL before bedtime. 360 mL 3 3 Active Zoster Vac Recomb Adjuvanted 50 MCG/0.5ML Intramuscular Suspension Reconstituted (Shingrix) Inject 0.5 mL into a large muscle now and repeat dose in 60 to 180 days 1 Each 1 3 Active Additional Information Patient not taking.Reported on 11/18/2023 MEDICAL INSTRUCTIONS Please arrange for as needed Home assisted visit for obtaining straight cath urine sample for 06/25/23. 1 Each 1 3 Active Famotidine 40 MG Oral Tablet (Pepcid)Indications :Gastroesophageal reflux disease with esophagitis without hemorrhage TAKE 1 TABLET BY MOUTH EVERY MORNING 90 Tablet 3 4 Active OneTouch Verio In Vitro Strip (Glucose Blood)Indications:T ype 2 diabetes mellitus with diabetic neuropathy, with long-term current use of insulin (HCC) use to test blood sugar 3 times daily 300 Strip 1 4 Active OneTouch Delica Lancets 33G USE UP TO FOUR TIMES A DAY Dx:E11.4 360 Each 5 4 Active Vitamin C 500 MG Oral Tablet (Ascorbic Acid)Indications:Re current UTI TAKE 1 TABLET BY MOUTH TWICE DAILY every morning and before bedtime 180 Tablet 3 4 Active Estradiol 0.1 MG/GM Vaginal Cream (Estrace) Apply pea sized amount (0.5 gm) vaginally every other night 42.5 g 3 4 Active Additional Information Patient not taking.Reported on 01/20/2024 Levothyroxine Sodium 88 MCG Oral Tablet (Levoxyl)Indication s:Hypothyroidism TAKE 1 TABLET BY MOUTH ONCE DAILY AT LEAST 30 MINUTES BEFORE BREAKFAST AND OTHER MEDICATIONS 90 Tablet 1 4 Active PEG 3350 17 GM/SCOOP Oral Powder DISSOLVE ONE HEAPING TABLESPOON IN 8 OZ OF WATER OR JUICE DAILY NEEDED FOR CONSTIPATION. 510 g 5 4 Active Spironolactone 50 MG Oral Tablet (Aldactone)Indicati ons:GONZALEZ (nonalcoholic steatohepatitis),Po rtal hypertension (HCC),Chronic liver disease and cirrhosis (HCC),Portal hypertensive gastropathy (HCC) TAKE ONE TABLET BY MOUTH IN THE MORNING AND ONE TABLET BEFORE BEDTIME 180 Tablet 1 4 Active Gabapentin 300 MG Oral Capsule (Neurontin)Indicati ons:Lumbar spondylosis TAKE 1 CAPSULE BY MOUTH TWICE DAILY 60 Capsule 5 4 Active Nitroglycerin 0.4 MG Sublingual Tablet Sublingual (Nitrostat)Indicati ons:Chronic coronary artery disease Place 1 Tablet under the tongue every 5 minutes as needed for Pain, Chest. Max dose 3 tablets in 15 minutes 25 Tablet 5 4 Active Nystatin 797515 UNIT/GM External Powder (Nystop)Indications :Candidal intertrigo Apply topically to affected area 3 times a day. Apply to right breast until rash resolved. 30 g 4 Active Nystatin 023112 UNIT/ML Mouth/Throat Suspension SWISH AND SWALLOW 5ML IN THE MORNING AND 5ML AT NOON AND 5 ML IN THE EVENING AND 5ML BEFORE BEDTIME, FOR THRUSH 240 mL 1 4 Active Metoprolol Succinate ER 25 MG Oral Tablet Extended Release 24 Hour (toPROL XL)Indications:HTN, goal below 130/80 TAKE 1 TABLET BY MOUTH EVERY MORNING 90 Tablet 4 Active Vitamin D (Ergocalciferol) 1.25 MG (46826 UT) Oral Capsule (Drisdol)Indication s:Vitamin D deficiency TAKE 1 CAPSULE BY MOUTH ONCE WEEKLY 12 Capsule 3 4 Active Insulin Glargine Solostar 100 UNIT/ML Subcutaneous Solution Pen-injector (Lantus SoloStar)Indication s:Type 2 diabetes mellitus with stage 3a chronic kidney disease, with long-term current use of insulin (HCC) Inject 35 units subcutaneously twice per day 30 mL 11 4 Active ARIPiprazole 5 MG Oral Tablet (Abilify) Take 1 Tablet by mouth in the morning. 4 Active Excedrin Migraine 250-250-65 MG Oral Tablet [...] and 1 Capsule before bedtime. 30 Capsule 4 Active Additional Information Patient not taking.Reported on 02/02/2024 oxyBUTYnin Chloride ER 10 MG Oral Tablet Extended Release 24 Hour (Ditropan XL) TAKE 1 TABLET BY MOUTH EVERY MORNING 90 Tablet 3 4 Active Montelukast Sodium 10 MG Oral Tablet (Singulair)Indicati ons:Nasal sinus congestion,PND (post-nasal drip) TAKE 1 TABLET BY MOUTH ONCE DAILY 90 Tablet 3 4 Active Potassium Chloride Mag ER 20 MEQ Oral Tablet Extended Release TAKE ONE TABLET BY MOUTH EVERY MORNING WHEN TAKING ADDITIONAL TORSEMIDE 90 Tablet 1 4 Active metFORMIN HCl ER 500 MG Oral Tablet Extended Release 24 Hour (Glucophage XR) TAKE 1 TABLET BY MOUTH ONCE DAILY with dinner 90 Tablet 3 4 Active BD Pen Needle Mini U/F 31G X 5 MM (Insulin Pen Needle) use twice a day 200 Each 2 4 Active oxyCODONE-Acetamino phen 5-325 MG Oral Tablet (Percocet) Take 1 Tablet by mouth every 8 hours as needed for Pain, Severe. 8 Tablet 4 Active Cefdinir 300 MG Oral Capsule (Omnicef) Take 1 Capsule by mouth in the morning and 1 Capsule before bedtime. 10 Capsule 4 Active Additional Information Patient not taking.Reported on 02/02/2024 Ozempic (2 MG/DOSE) 8 MG/3ML Subcutaneous Solution Pen-injector (Semaglutide (2 MG/DOSE))Indication s:Type 2 diabetes mellitus with diabetic neuropathy, with long-term current use of insulin (HCC) Inject 2 mg subcutaneous once per week 3 mL 5 4 Active Torsemide 20 MG Oral Tablet (Demadex)Indication s:Atherosclerotic heart disease of [place] coronary artery with other forms of angina pectoris (HCC),Hypertensive heart disease with chronic diastolic congestive heart failure (HCC) TAKE 1 TABLET BY MOUTH EVERY MORNING. MAY TAKE 1 ADDITIONAL TABLET NEEDED FOR SWELLING. 90 Tablet 1 4 Active Tamsulosin HCl 0.4 MG Oral Capsule (Flomax) TAKE 1 CAPSULE BY MOUTH EVERY MORNING 90 Capsule 4 Active Xifaxan 550 MG Oral Tablet (rifAXIMin)Indicati ons:GONZALEZ (nonalcoholic steatohepatitis),Ch ronic liver disease and cirrhosis (HCC),Hepatic encephalopathy (HCC) take 1 tablet by mouth twice daily 60 Tablet 5 4 Active Ondansetron HCl 8 MG Oral Tablet (Zofran)Indications :Nausea TAKE 1 TABLET BY MOUTH EVERY 8 HOURS NEEDED FOR NAUSEA 60 Tablet 5 4 Active Pantoprazole Sodium 40 MG Oral Tablet Delayed Release (Protonix)Indicatio ns:Gastroesophageal reflux disease without esophagitis TAKE 1 TABLET BY MOUTH TWICE DAILY every morning and every evening 180 Tablet 1 4 Active clonazePAM 0.5 MG Oral Tablet (KlonoPIN)Indicatio ns:Bipolar I disorder, most recent episode depressed, moderate (HCC) TAKE ONE TABLET BY MOUTH THREE TIMES DAILY 90 Tablet 4 Active clonazePAM 0.5 MG Oral Tablet (KlonoPIN)Indicatio ns:Bipolar I disorder, most recent episode depressed, moderate (HCC) TAKE ONE TABLET BY MOUTH THREE TIMES DAILY 90 Tablet 4 02/12/20 24 Discontinu ed(Refill) documented as of this encounter (statuses as of 02/12/2024) Active Problems Problem Noted Date Diagnosed Date [...] Comments: Breathing stable today Allergic rhinitis 11/11/2023 Food insecurity 06/16/2023 Overview: Per [facility] Protocol Medical home patient encounter 01/06/2023 Hypertensive heart [...] Euvolemic today Coronary artery disease invo lving [place] coronary artery of [place] heart without angina pectoris 11/15/2021 Last Assessment [...] (H) 02/18/2019 02:55 PM Urge incontinence 03/27/2021 rn long term care [...] 01/16/22 Moderate aortic stenosis 05/06/2018 Anxiety 08/05/2017 Ssdsifj-Bsjfy-Etogj disease 06/27/2015 Last Assessment & Plan: Frequent [...] as of this encounter (statuses as of 02/12/2024) Resolved Problems Problem Noted Date Diagnosed Date Resolved Date Chronic obstructive pulmonary disease 10/23/2023 11/19/2023 Overview: Per COPD GOLD Classification Transient alteration of awareness 05/12/2023 05/12/2023 Open [...] is giving this. 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-oracle database consultant and ID Acute cystitis without hematuria 03/27/2021 07/08/2022 Pelvic pain 03/27/2021 02/03/2024 Type 2 diabetes mellitus wit h diabetic neuropathy 09/07/2018 11/07/2023 Overview: duplicate Mild protein-calorie malnutrition 05/07/2018 04/29/2019 Diabetes mellitus with neuropathy 05/06/2018 09/07/2018 Other cirrhosis of liver 05/06/2018 Atherosclerotic heart diseas e of [place] coronary artery with other forms of angina pectoris 05/06/2018 08/27/2021 Thrombocytopenia 05/06/2018 02/09/2021 Portal hypertension 05/06/2018 08/28/19 Hepatic encephalopathy 05/06/201808/27 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 05/10/2023 Uncontrolled type 1 diabetes mellitus with complication, [...] stenosis 10/31/2010 08/28/2018 Acute coronary syndrome 10/30/201001/04 [place] Research Other*[id number] 02/02/2010 04/18/2014 Overview: [place] [facility], Dr Joel Kwon PI Obesity, morbid [...] as of this encounter (statuses as of 02/12/2024) Immunizations Name Administration Dates Next Due COVID-19 [...] Telephone Encounter - Carmen Sifuentes MD - 02/12/2024 9:42 AM EDTSigned Prescriptions: Disp Refills clonazePAM 0.5 MG Oral Tablet (KlonoPIN) 90 Tab*0 Sig: TAKE ONE TABLET BY MOUTH THREE TIMES DAILYAuthorizing Provider: CARMEN SIFUENTES * Telephone Encounter - Tommie Cervantes [facility] - 02/12/2024 9:36 AM EDT Pending Prescriptions: Disp Refills clonazePAM 0.5 MG Oral Tablet (KlonoPIN) 90 Tab*0 Sig: TAKE ONE TABLET BY MOUTH THREE TIMES DAILY * Telephone Encounter - Tommie Cervantes [facility] - 02/12/2024 9:35 AM EDT I have reviewed the patients controlled substance dispensing history in the Prescription Drug Monitoring Program in compliance with the [place] regulations before prescribing a controlled substance. PDMP checked on 02/12/2024. Pending Prescriptions: Disp Refills clonazePAM 0.5 MG Oral Tablet (KlonoPIN) 90 Tab*0 Sig: TAKE ONE TABLET BY MOUTH THREE TIMES DAILY Last Visit: 11/18/2023 (in office), 06/20/2023 (telemedicine) Next Visit: 06/08/2024 Date medication was last filled: 01/14/2024 Date medication is due for refill: 02/12/2024 Pharmacy: [id number] Is this request for a controlled substance? Yes and Urine Drug Screen Not completed Toxicology results: No results found. However, due to the size of the patient record, not all encounters were searched.Please check Results Review for a complete set of results. Please approve if appropriate. Thank you, Tommie Cervantes [facility] Clinical Pharmacist [facility] ([facility] 02/12/24 9:35 AM [phone] * Telephone Encounter - Shailesh Lala PHARM Tech - 02/12/2024 9:30 AM EDT Pt contact wants RX Expedited. Thank You, Shailesh Lala [facility] Supervisor Press Room II [facility] 02/12/2024, 9:30 AM * Telephone Encounter - Shailesh Lala PHARM Tech - 02/12/2024 9:28 AM EDT Did you pend patient's preferred pharmacy and medication before forwarding?yes Pharmacy: [id number] Pending Prescriptions: Disp Refills clonazePAM 0.5 MG Oral Tablet (KlonoPIN) 90 Tab*0 Sig: TAKE ONE TABLET BY MOUTH THREE TIMES DAILY Last Visit: 11/18/2023 (in office), 06/20/2023 (telemedicine) Next Visit: 06/08/2024 If no future appointments scheduled, and last appointment is greater than a year ago, please schedule patient for a follow-up appointment Last date the medication was ordered: 01/14/2024 Is this request for a controlled substance?Yes, What was the last refill date 01/14/2024 w/ [id number] tabs and dosage 0.5 mg and Urine Drug Screen Not completed Urine Drug Screen:No results found. However, due to the size of the patient record, not all encounters were searched. Please check Results Review for a complete set of results. Patient Phone Numbers Labs: Lab Results Component Value Date/Time CREAT 1.0 10/21/2023 12:07 PM CREAT 1.13 02/26/2021 12:00 AM CREAT 1.0 07/18/2020 12:20 PM POTASSIUM 4.3 10/21/2023 12:07 PM POTASSIUM 4.0 02/26/2021 12:00 AM POTASSIUM 4.6 07/18/2020 12:20 PM TSH 1.35 06/17/2023 12:33 PM TSH 1.47 05/22/2020 01:24 PM LDLCALC 35 10/23/2022 10:46 AM LDLCALC 39 02/18/2019 02:55 PM LDLDIRECT 94 08/28/2021 01:59 PM LDLDIRECT 91 05/22/2020 01:24 PM ALT 64 (H) 08/04/2023 09:14 AM ALT 26 05/22/2020 01:24 PM HGBA1C 6.2 (A) 12/11/2023 12:00 AM HGBA1C 5.9 (H) 05/22/2020 01:24 PM documented in this encounter Plan of Treatment Upcoming Encounters Date Type Department Care Team (Late st Contact Info) Description 02/23/2024 1:30 PM EDT Office Visit Urology, [facility] [address] [address] Alfredo Panda MD [address] [address] 02/25/2024 11:00 AM EDT Office Visit Cardiology, [facility] [address] [address] Haydee Pop CRNP [address] [address] 03/02/2024 4:00 PM EDT Imaging Radiology, [facility] [address] [facility], [place] [address] 03/09/2024 2:00 PM EDT Scheduled Telephone [facility], [facility] [address] [facility] [address] [address] Jesusita Saenz, RDN [address] [facility] [address] [address] 03/22/2024 2:45 PM EDT Office Visit Urology, [facility] [address] [facility] [address] [address] Alfredo Panda MD [address] [address] 03/29/2024 11:00 AM EDT Home Visit [facility], [facility] [address] [facility] [address] [address] Kirby Valenzuela PA-C [address] [facility] [address] [address] [address] 06/08/2024 6:00 PM EST Office Visit [facility] [address] [place] [id number] Carmen Sifuentes MD [address] [place] [address] Scheduled Procedures Name Priority Associated Diagnoses Date/Ti [...] , 04/27/2019, Additional history exists COVID-19 Vaccine (2022- season) 2023 06/10/2021, 08/29/2020, 08/01/2020 CKD PHOS USE SMARTSET 47425 10/24/202310/05, 02/18/2022, 02/17/2022, Additional history exists Influenza [...] Additional history exists CKD HGB USE SMARTSET 28325 12/10/202412/10, 08/04/2023, 08/04/2023, Additional history exists O2 [...] encounter Medical Devices Implanted Type Area Music Leader Device Identifier Shelf Expiration Date Model / Serial / Lot Sut Steel 6 M654g - [id number] Implanted:Qty: 3 on 02/15/2011 at [place] [facility] [place]/A: Chest DO NOT USE 01/15/2015 M654G / / [id number] Band Magdy 225-241 - [id number] Implanted:Qty: 1 on 02/15/2011 at [place] [facility] [place] N/A: Chest [employer] 225-241 / / [id number] Sut Steel 6 M654g - [id number] Implanted:Qty: 1 on 02/15/2011 at [place] [facility] [place] N/A: Chest DO NOT USE 07/21/2015 M654G / / [id number] documented as of this encounter Visit Diagnoses Diagnosis Bipolar I disorder, most recent episode depressed, moderate (HCC) Bipolar I disorder, most recent episode (or current) depressed, moderate documented in this encounter Advance Directives Documents on File Type Date Recorded 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
--- OUTSIDE RECORDS SUMMARY | 2024-03-03 08:00 | External Medical Summary | Summary of Care ---
Author Name Unknown Organization [facility] Address [address] [place] [address] Phone [phone] Care Team Providers Care Marketing Communications Manager Name Role Phone Carmen Sifuentes MD Primary Care Provider [phone]- [phone] Reason for Visit * Reason Onset Date Comments eRx-Medication Refill Status Check 02/17/2024 Encounter Details Date Type Department Care Team (Late st Contact Info) Description 02/17/2024 Refill [facility] [address] [place] [address] Carmen Sifuentes MD [address] [place] [address] Bipolar I disorder, most recent [...] Status venlafaxine XR (EFFEXOR XR) 150 MG [id number]:De pression Take 1 Cap by mouth daily. With food. 30 Cap 5 09/02/19 17 Active Additional Information Patient taking differently: 225 mgOral Daily(AM),Taking a total of 225 mg, Indications: Takes 225 mg total every morning with food (150 mg tab + 75 mg tab), Reported on 03/03/2023 Blood Glucose Monitoring Suppl ([email or web address] GLUCOMETER) w/Device KITIndications:Unc ontrolled type 2 diabetes mellitus without complication, without long-term current use of insulin Use as directed. Use as directed once daily 1 Kit 11/19/19 18 Active Blood Glucose Monitoring Suppl (Fangdd VERIO) w/Device KIT Use as directed. Use as directed. 1 Kit 11/01/19 19 Active Spacer/Aero-Holdin g Chambers WISAM Use with inhaler. Wheezing/bronchiti s. 1 Device 04/08/20 19 Active Lancet Devices (Fangdd DELICA LANCING DEV) MISC Use four times [...] Kit Use as directed 1 Kit 07/17/19 23 Active lamoTRIgine 25 MG Oral Tablet [...] to 180 days 1 Each 1 06/17/20 23 Active Additional Information Patient not taking.Reported on 11/18/2023 MEDICAL INSTRUCTIONS Please arrange for as needed Home correction visit for obtaining straight cath urine sample [...] FOUR TIMES A DAY Dx:E11.4 360 Each 07/30/19 24 Active Vitamin C 500 MG Oral Tablet (Ascorbic Acid)Indications:R ecurrent UTI TAKE 1 TABLET BY MOUTH TWICE DAILY every morning and before bedtime 180 Tablet 3 08/13/19 24 Active Estradiol 0.1 MG/GM Vaginal Cream (Estrace) Apply pea sized amount (0.5 gm) vaginally every other night 42.5 g 3 08/20/19 24 Active Additional Information Patient not taking.Reported on [...] 25 Tablet 5 10/16/19 24 Active Nystatin 965285 UNIT/GM External Powder (Nystop)Indication s:Candidal intertrigo Apply topically to affected area 3 times a day. Apply to right breast until rash resolved. 30 g 10/16/19 24 Active Nystatin 451845 UNIT/ML Mouth/Throat Suspension SWISH AND SWALLOW 5ML [...] 24 Active Vitamin D (Ergocalciferol) 1.25 MG (76901 UT) Oral Capsule (Drisdol)Indicatio ns:Vitamin D deficiency TAKE 1 CAPSULE BY MOUTH ONCE WEEKLY 12 Capsule 3 11/10/19 24 Active Insulin Glargine Solostar 100 UNIT/ML Subcutaneous Solution Pen-injector (Lantus SoloStar)Indicatio ns:Type 2 diabetes mellitus with stage 3a chronic kidney disease, with long-term current use of insulin (HCC) Inject 35 units subcutaneously twice per day 30 mL 11 11/18/19 24 Active ARIPiprazole 5 MG Oral Tablet (Abilify) Take 1 Tablet by mouth in the morning. 11/17/19 24 Active Excedrin Migraine 250-250-65 MG Oral Tablet (Aspirin-Acetamino phen-Caffeine 250-250-65 mg per tab) Take 1 Tablet [...] and 1 Capsule before bedtime. 30 Capsule 11/26/19 24 Active Additional Information Patient not taking.Reported on 02/02/2024 oxyBUTYnin Chloride ER 10 MG Oral Tablet Extended Release 24 Hour (Ditropan XL) TAKE 1 TABLET BY MOUTH EVERY MORNING 90 Tablet 3 12/04/19 24 Active Montelukast Sodium 10 MG Oral Tablet (Singulair)Indicat ions:Nasal sinus congestion,PND (post-nasal drip) TAKE 1 TABLET BY MOUTH ONCE DAILY 90 Tablet 3 12/12/19 24 Active Potassium Chloride Mag ER 20 MEQ Oral Tablet Extended Release TAKE ONE TABLET BY MOUTH EVERY MORNING WHEN TAKING ADDITIONAL TORSEMIDE 90 Tablet 1 12/19/19 24 Active metFORMIN HCl ER 500 MG Oral Tablet Extended Release 24 Hour (Glucophage XR) TAKE 1 TABLET BY MOUTH ONCE DAILY with dinner 90 Tablet 3 12/23/19 24 Active BD Pen Needle Mini U/F 31G X 5 MM (Insulin Pen Needle) use twice a day 200 Each 2 12/23/19 24 Active oxyCODONE-Acetamin ophen 5-325 MG Oral Tablet (Percocet) Take 1 Tablet by mouth every 8 hours as needed for Pain, Severe. 8 Tablet 12/31/19 24 Active Cefdinir 300 MG Oral Capsule (Omnicef) Take 1 Capsule by mouth in the morning and 1 Capsule before bedtime. 10 Capsule 01/01/20 24 Active Additional Information Patient not taking.Reported on 02/02/2024 Ozempic (2 MG/DOSE) 8 MG/3ML Subcutaneous Solution Pen-injector (Semaglutide (2 MG/DOSE))Indicatio ns:Type 2 diabetes mellitus with diabetic neuropathy, with long-term current use of insulin (HCC) Inject 2 mg subcutaneous once per week 3 mL 5 01/01/20 24 Active Torsemide 20 MG Oral Tablet (Demadex)Indicatio ns:Atherosclerotic heart disease of [place] coronary artery with other forms of angina pectoris (HCC),Hypertensive heart disease with chronic diastolic congestive heart failure (HCC) TAKE 1 TABLET BY MOUTH EVERY MORNING. MAY TAKE 1 ADDITIONAL TABLET NEEDED FOR SWELLING. 90 Tablet 1 01/06/20 24 Active Tamsulosin HCl 0.4 MG Oral Capsule (Flomax) TAKE 1 CAPSULE BY MOUTH EVERY MORNING 90 Capsule 01/12/20 24 Active Xifaxan 550 MG Oral Tablet (rifAXIMin)Indicat ions:GONZALEZ (nonalcoholic steatohepatitis),C hronic liver disease and cirrhosis (HCC),Hepatic encephalopathy (HCC) take 1 tablet by mouth twice daily 60 Tablet 5 01/26/20 24 Active Ondansetron HCl 8 MG Oral Tablet (Zofran)Indication s:Nausea TAKE 1 TABLET BY MOUTH EVERY 8 HOURS NEEDED FOR NAUSEA 60 Tablet 5 01/28/20 24 Active Pantoprazole Sodium 40 MG Oral Tablet Delayed Release (Protonix)Indicati ons:Gastroesophage al reflux disease without esophagitis TAKE 1 TABLET BY MOUTH TWICE DAILY every morning and every evening 180 Tablet 1 02/09/20 24 Active clonazePAM 0.5 MG Oral Tablet (KlonoPIN)Indicati ons:Bipolar I disorder, most recent episode depressed, moderate (HCC) TAKE ONE TABLET BY MOUTH THREE TIMES DAILY 90 Tablet 02/19/20 24 Active clonazePAM 0.5 MG Oral Tablet (KlonoPIN)Indicati ons:Bipolar I disorder, most recent episode depressed, moderate (HCC) TAKE ONE TABLET BY MOUTH THREE TIMES DAILY 90 Tablet 02/12/20 24 024 Discontinued documented as of this encounter (statuses [...] Euvolemic today Coronary artery disease invo lving [place] coronary artery of [place] heart without angina pectoris 11/15/2021 Last Assessment [...] (H) 02/18/2019 02:55 PM Urge incontinence 03/27/2021 half-way (current) use of insulin 09/29/2019 Diabetic gastroparesis [...] 01/16/22 Moderate aortic stenosis 05/06/2018 Anxiety 08/05/2017 Wbagcbj-Rxvca-Uxgyy disease 06/27/2015 Last Assessment & Plan: Frequent [...] is giving this. 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-cellular phone repairer and ID Acute cystitis without hematuria 03/27/2021 07/08/2022 Pelvic pain 03/27/2021 02/03/2024 Type 2 diabetes mellitus wit h diabetic neuropathy 09/07/2018 11/07/2023 Overview: duplicate Mild protein-calorie malnutrition 05/07/2018 04/29/2019 Diabetes mellitus with neuropathy 05/06/2018 09/07/2018 Other cirrhosis of liver 05/06/2018 Atherosclerotic heart diseas e of [place] coronary artery with other forms of angina [...] stenosis 10/31/2010 08/28/2018 Acute coronary syndrome 10/30/201001/04 [employer] Research Other*[id number] 02/02/2010 04/18/2014 Overview: [place] [facility], Dr Jeol Kwon PI Obesity, morbid (more than 1 [...] long term care administrator current use of ant icoagulant therapy 06/17/2006 [...] Telephone Encounter - Carmen Sifuentes MD - 02/19/2024 9:09 AM EDTSigned Prescriptions: Disp Refills clonazePAM 0.5 MG Oral Tablet (KlonoPIN) 90 Tab*0 Sig: TAKE ONE TABLET BY MOUTH THREE TIMES DAILYAuthorizing Provider: CARMEN SIFUENTES * Telephone Encounter - Carmen Sifuentes MD - 02/19/2024 9:09 AM EDTSigned Prescriptions: Disp Refills clonazePAM 0.5 MG Oral Tablet (KlonoPIN) 90 Tab*0 Sig: TAKE ONE TABLET BY MOUTH THREE TIMES DAILYAuthorizing Provider: CARMEN SIFUENTES * Telephone Encounter - Yamini Jones, tool designer apprentice - 02/19/2024 8:19 AM EDT Please resend Rx to [id number] [address] Confirmed pharmacy did not receive original prescription. Pending Prescriptions: Disp Refills clonazePAM 0.5 MG Oral Tablet (KlonoPIN) *90 Tab*0 Sig: TAKE ONE TABLET BY MOUTH THREE TIMES DAILY Last Visit: 11/18/2023 (in office), 06/20/2023 (telemedicine) 06/08/2024 If no future appointments scheduled, and last appointment is greater than a year ago, please schedule patient for a follow-up appointment Last date the medication was ordered: 02/12/2024 Patient Phone Numbers Labs: Lab Results Component [...] 05/22/2020 01:24 PM * Telephone Encounter - Ashley Becker CPhT - 02/18/2024 2:48 PM EDT Patient needs clonazepam reordered at pharmacy due to rx not being received , patient needs med reordered today Thank you, Ashley Becker Deli Slicer [facility] ([facility] (formerly Telepharmacy) 02/18/2024 2:49 PM * Telephone Encounter - Maryann Bowling tool designer apprentice - 02/18/2024 12:39 PM EDT Pt asking if it can be a high priority, please advise Please resend Rx to [id number] [address]. Confirmed pharmacy did not receive original prescription. Pending Prescriptions: Disp Refills clonazePAM 0.5 MG Oral Tablet (KlonoPIN) *90 Tab*0 Sig: TAKE ONE TABLET BY MOUTH THREE TIMES DAILY Last Visit: 11/18/2023 (in office), 06/20/2023 (telemedicine) 06/08/2024 If no future appointments scheduled, and last appointment is greater than a year ago, please schedule patient for a follow-up appointment Last date the medication was ordered: 02-12-24 Patient Phone Numbers Labs: Lab Results Component [...] 05/22/2020 01:24 PM * Telephone Encounter - Alexsandra River tool designer apprentice - 02/18/2024 8:32 AM EDT Pt calling to request Clonazepam. Informed pt that RX is available at their pharmacy. Pt verbalizedunderstanding and stated they will check with their pharmacy regarding this medication. Thank you, Alexsandra [facility] Assistant I [facility] 02/18/2024,8:34 AM documented in this encounter Plan of Treatment Upcoming Encounters Date Type Department Care Team (Late st Contact Info) Description 02/23/2024 3:00 PM EDT [facility] [address] [facility] [address] Alfredo Panda MD [address] [address] 02/25/2024 11:00 AM EDT Office Visit [facility], [facility] [address] [facility] [facility] [address] Haydee Pop CRNP [address] [facility] [address] 03/02/2024 4:00 PM EDT [address], [address] [address] 03/09/2024 2:00 PM EDT Scheduled Telephone [facility], [facility] [address] [place] [facility] [place] [address] Jesusita Saenz RDN [address] [place] [facility] [place] [address] 03/22/2024 2:45 PM EDT Office Visit Urology, [facility] [address] [facility] [place] [address] Alfredo Panda MD [address] [address] 03/29/2024 11:00 AM EDT Home Visit [facility], [address] [place] [address] Kirby Valenzuela PA-C [address] [place] [address] 06/08/2024 6:00 PM EST Office Visit [facility] [address] [place] [id number] Carmen Sifuentes MD [address] [place] [address] Scheduled Procedures Name Priority Associated Diagnoses Date/Ti [...] 06/10/2021, 08/29/2020, 08/01/2020 CKD PHOS USE SMARTSET 81023 10/24/202310/05, 02/18/2022, 02/17/2022, Additional history exists Influenza [...] Additional history exists CKD HGB USE SMARTSET 71084 12/10/202412/10, 08/04/2023, 08/04/2023, Additional history exists O2 [...] this encounter Medical Devices Implanted Type Area Braddisher Device Identifier Shelf Expiration Date Model / Serial / Lot Sut Steel 6 M654g - [id number] Implanted:Qty: 3 on 02/15/2011 at OR [facility] N/A: Chest DO NOT USE 01/15/2015 M654G / / [id number] [facility] 225-241 - [id number] Implanted:Qty: 1 on 02/15/2011 at OR [facility] N/A: Chest [employer] 225-241 / / [id number] Sut Steel 6 M654g - [id number] Implanted:Qty: 1 on 02/15/2011 at OR [facility] N/A: Chest DO NOT USE 07/21/2015 M654G / / [id number] documented as of this encounter Visit Diagnoses Diagnosis Bipolar I disorder, most recent episode depressed, moderate (HCC) Bipolar I disorder, most recent episode (or current) depressed, moderate documented in this encounter Advance Directives Documents on File Type Date Recorded 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 Communication Carolyn Goldmandrewnabila Adult Child Health Care Agent Care Teams Marketing Communications Manager Relationship Specialty Start Date End Date Carmen Sifuentes MD [address] [place] [address] PCP - General Family Medicine 07/16/17 documented as of this encounter
--- OUTSIDE RECORDS SUMMARY | 2024-03-03 08:00 | External Medical Summary | Summary of Care ---
Author Name Unknown Organization [facility] Address [address] [place] [address] Phone [phone] Care Team Providers Care Technical Education Teacher Name Role Phone Brian Domínguez MD Primary Care Provider [phone]- [phone] Encounter Details Date Type Department Care Team (Late st Contact Info) Description 02/13/2024 Telephone [facility] [address] [place] [address] Brian Domínguez MD [address] [place] [address] Allergies Active Allergy Reactions Criticality Noted Date Comments Propoxyphene Hcl Rash Low 10/29/2010 Fentanyl Diarrhea Low 04/26/2010 anxiety Methocarbamol Medium 10/05/2020 Other reaction(s): Delirium Methocarbamol Low 04/15/2007 Zolpidem Low 10/05/2020 Other reaction(s): Confusion documented as of this encounter (statuses as of 02/17/2024) Medications Medication Sig Dispensed Refills Start Date End Date Status venlafaxine XR (EFFEXOR XR) 150 MG [id number]:Dep ression Take 1 Cap by mouth daily. [...] Kit 11/18/2017 Active Blood Glucose Monitoring Suppl (Pay-MeUCH VERIO) w/Device KIT Use as directed. Use as directed. 1 Kit 10/31/2018 Active Spacer/Aero-Holding Chambers WISAM Use with inhaler. Wheezing/bronchitis . 1 Device 04/08/2019 Active Lancet Devices (Keibi TechnologiesTOUCH DELICA LANCING DEV) MISC Use four times [...] INSTRUCTIONS Please arrange for as needed Home custodial visit for obtaining straight cath urine sample [...] minutes 25 Tablet 5 10/16/2023 Active Nystatin 481278 UNIT/GM External Powder (Nystop)Indications :Candidal intertrigo Apply topically to affected area 3 times a day. Apply to right breast until rash resolved. 30 g 10/16/2023 Active Nystatin 823898 UNIT/ML Mouth/Throat Suspension SWISH AND SWALLOW 5ML IN THE MORNING AND 5ML AT NOON AND 5 ML IN THE EVENING AND 5ML BEFORE BEDTIME, FOR THRUSH 240 mL 1 10/16/2023 Active Metoprolol Succinate ER 25 MG Oral Tablet Extended Release 24 Hour (toPROL XL)Indications:HTN, goal below 130/80 TAKE 1 TABLET BY MOUTH EVERY MORNING 90 Tablet 10/25/2023 Active Vitamin D (Ergocalciferol) 1.25 MG (86677 UT) Oral Capsule (Drisdol)Indication s:Vitamin D deficiency [...] Tablet (Demadex)Indication s:Atherosclerotic heart disease of [place] coronary artery with other forms of angina [...] BY MOUTH THREE TIMES DAILY 90 Tablet 02/12/2024 Active documented as of this encounter (statuses as of 02/17/2024) Active Problems Problem Noted Date Diagnosed Date [...] Euvolemic today Coronary artery disease invo lving [place] coronary artery of [place] heart without angina pectoris 11/15/2021 Last Assessment [...] (H) 02/18/2019 02:55 PM Urge incontinence 03/27/2021 retirement (current) use of insulin 09/29/2019 Diabetic gastroparesis [...] 01/16/22 Moderate aortic stenosis 05/06/2018 Anxiety 08/05/2017 Nvpwqur-Qijwv-Vokoz disease 06/27/2015 Last Assessment & Plan: Frequent [...] as of this encounter (statuses as of 02/17/2024) Resolved Problems Problem Noted Date Diagnosed Date [...] is giving this. 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-single pass soil stabilizer operator and ID Acute cystitis without hematuria 03/27/2021 07/08/2022 Pelvic pain 03/27/2021 02/03/2024 Type 2 diabetes mellitus wit h diabetic neuropathy 09/07/2018 11/07/2023 Overview: duplicate Mild protein-calorie malnutrition 05/07/2018 04/29/2019 Diabetes mellitus with neuropathy 05/06/2018 09/07/2018 Other cirrhosis of liver 05/06/2018 Atherosclerotic heart diseas e of [place] coronary artery with other forms of angina [...] stenosis 10/31/2010 08/28/2018 Acute coronary syndrome 10/30/201001/04 [place] Research Other*[id number] 02/02/2010 04/18/2014 Overview: [place] [facility], Dr Joel CASAS Obesity, morbid (more [...] thrombosis 06/17/2006 01/21/2014 retirement current use of ant icoagulant therapy 06/17/2006 [...] as of this encounter (statuses as of 02/17/2024) Immunizations Name Administration Dates Next Due COVID-19 [...] encounter Miscellaneous Notes * Telephone Encounter - Andie Vu, MED ASSIST - 02/17/2024 10:41 AM EDT Previous note incorrect. Received fax from [facility] needing order for RN signed. Placed in provider's mailbox for signature. * Telephone Encounter - Raimundo Espinoza MED ASSIST - 02/13/2024 11:15 AM EDT Received fax from [facility] requesting signature of 2 orders SN and pt 1 week 1 documented in this encounter Plan of Treatment Upcoming Encounters Date Type Department Care Team (Late st Contact Info) Description 02/23/2024 1:30 PM EDT Office Visit Urology, [facility] [address] [address] Alfredo Panda MD [address] [address] [address] 02/25/2024 11:00 AM EDT Office Visit Cardiology, [facility] [address] [place] [address] Haydee Pop CRNP [address] [place] [address] 03/02/2024 4:00 PM EDT [address], [address] [address] 03/09/2024 2:00 PM EDT Scheduled Telephone [facility], [facility] [address] [facility] [place] [address] Jesusita Saenz, KELLYN [address] [place] [address] 03/22/2024 2:45 PM EDT Office Visit Urology, [facility] [address] [address] [address] Alfredo Panda MD [address] [place] [address] 03/29/2024 11:00 AM EDT Home Visit [facility], [facility] [address] [place] [address] Kirby Valenzuela PA-C [address] [place] [address] 06/08/2024 6:00 PM EST Office Visit [facility] [address] [place] [address] Brian Domínguez MD [address], [place] [id number] Scheduled Procedures Name Priority Associated Diagnoses Date/Ti [...] 06/10/2021, 08/29/2020, 08/01/2020 CKD PHOS USE SMARTSET 51559 10/24/202310/05, 02/18/2022, 02/17/2022, Additional history exists Influenza [...] Additional history exists CKD HGB USE SMARTSET 80081 12/10/202412/10, 08/04/2023, 08/04/2023, Additional history exists O2 [...] this encounter Medical Devices Implanted Type Area Statistical Modeler Device Identifier Shelf Expiration Date Model / Serial / Lot Sut Steel 6 M654g - [id number] Implanted:Qty: 3 on 02/15/2011 at [place] [facility] [place] N/A: Chest DO NOT USE 01/15/2015 M654G / / [id number] [place] 225-241 - [id number] Implanted:Qty: 1 on 02/15/2011 at [place] [facility] N/A: Chest [employer] 225-241 / / [id number] Sut Steel 6 M654g - [id number] Implanted:Qty: 1 on 02/15/2011 at [place] [facility] N/A: Chest DO NOT USE 07/21/2015 M654G / / [id number] documented as of this encounter Advance Directives Documents on File Type Date Recorded 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
--- OUTSIDE RECORDS SUMMARY | 2024-03-03 08:00 | External Medical Summary | Summary of Care ---
Author Name Unknown Organization [facility] Address [address] [place] [address] Phone [phone] Care Team Providers Care Concrete Pourer Name Role Phone Brian Domínguez MD Primary Care Provider +1- [phone] Encounter Details Date Type Department Care Team (Late st Contact Info) Description 02/13/2024 Telephone Formerly [facility] [address] [place] [address] Brian Domínguez MD [address] [place] [address] Allergies Active Allergy Reactions Criticality Noted Date Comments Propoxyphene Hcl Rash Low 10/29/2010 Fentanyl Diarrhea Low 04/26/2010 anxiety Methocarbamol Medium 10/05/2020 Other reaction(s): Delirium Methocarbamol Low 04/15/2007 Zolpidem Low 10/05/2020 Other reaction(s): Confusion documented as of this encounter (statuses as of 02/13/2024) Medications Medication Sig Dispensed Refills Start Date End Date Status venlafaxine XR (EFFEXOR XR) 150 MG [id number]:Dep ression Take 1 Cap by mouth daily. [...] Kit 11/18/2017 Active Blood Glucose Monitoring Suppl (Sensorflare PCUCH VERIO) w/Device KIT Use as directed. Use as directed. 1 Kit 10/31/2018 Active Spacer/Aero-Holding Chambers WISAM Use with inhaler. Wheezing/bronchitis . 1 Device 04/08/2019 Active Lancet Devices (PharmaNationTOUCH DELICA LANCING DEV) MISC Use four times [...] minutes 25 Tablet 5 10/16/2023 Active Nystatin 945460 UNIT/GM External Powder (Nystop)Indications :Candidal intertrigo Apply topically to affected area 3 times a day. Apply to right breast until rash resolved. 30 g 10/16/2023 Active Nystatin 741906 UNIT/ML Mouth/Throat Suspension SWISH AND SWALLOW 5ML IN THE MORNING AND 5ML AT NOON AND 5 ML IN THE EVENING AND 5ML BEFORE BEDTIME, FOR THRUSH 240 mL 1 10/16/2023 Active Metoprolol Succinate ER 25 MG Oral Tablet Extended Release 24 Hour (toPROL XL)Indications:HTN, goal below 130/80 TAKE 1 TABLET BY MOUTH EVERY MORNING 90 Tablet 10/25/2023 Active Vitamin D (Ergocalciferol) 1.25 MG (40635 UT) Oral Capsule (Drisdol)Indication s:Vitamin D deficiency [...] Tablet (Demadex)Indication s:Atherosclerotic heart disease of [place] coronary artery with other forms of angina [...] as of this encounter (statuses as of 02/13/2024) Active Problems Problem Noted Date Diagnosed Date [...] Euvolemic today Coronary artery disease invo lving [place] coronary artery of [place] heart without angina pectoris 11/15/2021 Last Assessment [...] (H) 02/18/2019 02:55 PM Urge incontinence 03/27/2021 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-speedboat driver and ID Acute cystitis without hematuria 03/27/2021 07/08/2022 Pelvic pain 03/27/2021 02/03/2024 Type 2 diabetes mellitus wit h diabetic neuropathy 09/07/2018 11/07/2023 Overview: duplicate Mild protein-calorie malnutrition 05/07/2018 04/29/2019 Diabetes mellitus with neuropathy 05/06/2018 09/07/2018 Other cirrhosis of liver 05/06/2018 Atherosclerotic heart diseas e of [place] coronary artery with other forms of angina [...] 10/31/2010 08/28/2018 Acute coronary syndrome 10/30/201001/04 [facility] Research Other*[id number] 02/02/2010 04/18/2014 Overview: [place] Registry, Dr Joel CASAS Obesity, morbid (more [...] thrombosis 06/17/2006 01/21/2014 prison current use of ant icoagulant therapy 06/17/2006 [...] as of this encounter (statuses as of 02/13/2024) Immunizations Name Administration Dates Next Due COVID-19 [...] encounter Miscellaneous Notes * Telephone Encounter - Raimundo Espinoza MED ASSIST - 02/13/2024 11:15 AM EDT Received fax from [facility] requesting signature of 2 orders SN and pt 1 week 1 documented in this encounter Plan of Treatment Upcoming Encounters Date Type Department Care Team (Late st Contact Info) Description 02/23/2024 1:30 PM EDT Office Visit Urology, [facility] [address] [place] [address] Alfredo Panda MD [address] [place] [address] 02/25/2024 11:00 AM EDT Office Visit Cardiology, [facility] [address] [place] [address] Haydee Pop CRNP [address] [place] [address] 03/02/2024 4:00 PM EDT [address] Radiology, [address] [address] 03/09/2024 2:00 PM EDT Scheduled Telephone [facility], [facility] [address] [facility] [place] [address] Jesusita Saenz, RDN [address] [place] [address] 03/22/2024 2:45 PM EDT Office Visit Urology, [facility] [address] [place] [address] Alfredo Panda MD [address] [place] [address] 03/29/2024 11:00 AM EDT Home Visit [facility], [facility] [address] [place] [address] Kirby Valenzuela PA-C [address] [place] [address] 06/08/2024 6:00 PM EST Office Visit [facility]ly [facility] [address] [place] [address] Brian Domínguez MD [address], [place] [id number] Scheduled Procedures Name Priority Associated Diagnoses Date/Ti [...] 06/10/2021, 08/29/2020, 08/01/2020 CKD PHOS USE SMARTSET 27993 10/24/202310/05, 02/18/2022, 02/17/2022, Additional history exists Influenza [...] Additional history exists CKD HGB USE SMARTSET 65859 12/10/202412/10, 08/04/2023, 08/04/2023, Additional history exists O2 [...] this encounter Medical Devices Implanted Type Area Custom Designer Device Identifier Shelf Expiration Date Model / Serial / Lot Sut Steel 6 M654g - [id number] [place] [facility] [place] Chest DO NOT USE 01/15/2015 M654G / / [id number] [facility] 225-241 - [id number] Implanted:Qty: 1 on [place]2011 [place] [facility] [place] Chest [employer] 225-241 / / [id number] Sut Steel 6 M654g - [id number] Implanted:Qty: 1 on [place]2011 [place] [facility] [place] Chest DO NOT USE 07/21/2015 M654G / / [id number] documented as of this encounter Advance Directives Documents on File Type Date Recorded Patient Events Intern Expl anation POLST 05/06/2018 POLST * Full [...] Healthcare Agent [facility] Communication Carolyn Ballard Adult Child Health Care Agent Care Teams Concrete Pourer Relationship Specialty Start Date End Date Brian Domínguez MD [address] [place] [address] PCP - General Family Medicine 07/16/17 documented as of this encounter
--- OUTSIDE RECORDS SUMMARY | 2024-03-03 08:00 | External Medical Summary | Summary of Care ---
Author Name Unknown Organization [facility] Address [address] [place] [address] Phone [phone] Care Team Providers Care Inner Tube Tuber Machine Operator Name Role Phone Brian Domínguez MD Primary Care Provider +1- [phone] Encounter Details Date Type Department Care Team (Late st Contact Info) Description 02/04/[address] [facility] [address] [place] [address] Brian Domínguez MD [address] [place] [address] Allergies Active Allergy Reactions Criticality Noted Date Comments Propoxyphene Hcl Rash Low 10/29/2010 Fentanyl Diarrhea Low 04/26/2010 anxiety Methocarbamol Medium 10/05/2020 Other reaction(s): Delirium Methocarbamol Low 04/15/2007 Zolpidem Low 10/05/2020 Other reaction(s): Confusion documented as of this encounter (statuses as of 02/11/2024) Medications Medication Sig Dispensed Refills Start Date End Date Status venlafaxine XR (EFFEXOR XR) 150 MG [id number]:De pression Take 1 Cap by mouth daily. [...] 11/19/19 18 Active Blood Glucose Monitoring Suppl (JRKICKZ VERIO) w/Device KIT Use as directed. Use as directed. 1 Kit 11/01/19 19 Active Spacer/Aero-Holdin g Chambers WISAM Use with inhaler. Wheezing/bronchiti s. 1 Device 04/08/20 19 Active Lancet Devices (JRKICKZ DELICA LANCING DEV) MISC Use four times [...] INSTRUCTIONS Please arrange for as needed [facility] visit for obtaining straight cath urine sample [...] 25 Tablet 5 10/16/19 24 Active Nystatin 434924 UNIT/GM External Powder (Nystop)Indication s:Candidal intertrigo Apply topically to affected area 3 times a day. Apply to right breast until rash resolved. 30 g 10/16/19 24 Active Nystatin 098841 UNIT/ML Mouth/Throat Suspension SWISH AND SWALLOW 5ML [...] 24 Active Vitamin D (Ergocalciferol) 1.25 MG (13968 UT) Oral Capsule (Drisdol)Indicatio ns:Vitamin D deficiency [...] Oral Tablet (Demadex)Indicatio ns:Atherosclerotic heart disease of [place] coronary artery with other forms of angina pectoris (HCC),Hypertensive heart disease with chronic diastolic congestive heart failure (HCC) TAKE 1 TABLET BY MOUTH EVERY MORNING. MAY TAKE 1 ADDITIONAL TABLET NEEDED FOR SWELLING. 90 Tablet 1 01/06/20 24 Active Tamsulosin HCl 0.4 MG Oral Capsule (Flomax) TAKE 1 CAPSULE BY MOUTH EVERY MORNING 90 Capsule 01/12/20 24 Active clonazePAM 0.5 MG Oral Tablet (KlonoPIN)Indicati ons:Bipolar I disorder, most recent episode depressed, moderate (HCC) TAKE ONE TABLET BY MOUTH THREE TIMES DAILY 90 Tablet 01/14/20 24 Active Xifaxan 550 MG Oral Tablet (rifAXIMin)Indicat ions:GONZALEZ (nonalcoholic steatohepatitis),C hronic liver disease and cirrhosis (HCC),Hepatic encephalopathy (HCC) take 1 tablet by mouth twice daily 60 Tablet 5 01/26/20 24 Active Ondansetron HCl 8 MG Oral Tablet (Zofran)Indication s:Nausea TAKE 1 TABLET BY MOUTH EVERY 8 HOURS NEEDED FOR NAUSEA 60 Tablet 01/28/20 24 Active Pantoprazole Sodium 40 MG Oral Tablet Delayed Release (Protonix)Indicati ons:Gastroesophage al reflux disease without esophagitis TAKE 1 TABLET BY MOUTH TWICE DAILY every morning and every evening 180 Tablet 1 08/14/19 24 024 Discontinued documented as of this encounter (statuses as of 02/11/2024) Active Problems Problem Noted Date Diagnosed Date [...] Euvolemic today Coronary artery disease invo lving [place] coronary artery of [place] heart without angina pectoris 11/15/2021 Last Assessment [...] (H) 02/18/2019 02:55 PM Urge incontinence 03/27/2021 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-biologist and ID Acute cystitis without hematuria 03/27/2021 07/08/2022 Pelvic pain 03/27/2021 02/03/2024 Type 2 diabetes mellitus wit h diabetic neuropathy 09/07/2018 11/07/2023 Overview: duplicate Mild protein-calorie malnutrition 05/07/2018 04/29/2019 Diabetes mellitus with neuropathy 05/06/2018 09/07/2018 Other cirrhosis of liver 05/06/2018 Atherosclerotic heart diseas e of [place] [...] stenosis 10/31/2010 08/28/2018 Acute coronary syndrome 10/30/201001/04 [place] Research Other*[id number] 02/02/2010 04/18/2014 Overview: [place] [facility], Dr Joel Kwon PI Obesity, morbid [...] as of this encounter (statuses as of 02/11/2024) Immunizations Name Administration Dates Next Due COVID-19 [...] Encounter - Raimundo Espinoza MED ASSIST - 02/04/2024 10:03 AM EDT Attempted to contact patient to see if she is still taking methenamine, and if she needs refills documented in this encounter Plan of Treatment Upcoming Encounters Date Type Department Care Team (Late st Contact Info) Description 02/23/2024 1:30 PM EDT Office Visit Urology, [facility] [address] [place] [address] Alfredo Panda MD [address] [address] 02/25/2024 11:00 AM EDT Office Visit Cardiology, [facility] [address] [place] [address] Haydee Pop CR[facility] [place] [address] 03/02/2024 4:00 PM EDT [address] Radiology, [address] [address] 03/09/2024 2:00 PM EDT Scheduled Telephone [facility], [facility] [address] [facility] [place] [address] Jesusita Saenz, KELLYN [address] [facility] [place] [address] 03/22/2024 2:45 PM EDT Office Visit Urology, [facility] [address] [address] [address] Alfredo Panda MD [address] [place] [address] 03/29/2024 11:00 AM EDT Home Visit [facility], [facility] [address] [address] [address] Kirby Valenzuela PA-C [address] [place] [address] 06/08/2024 6:00 PM EST Office Visit [facility] [address] [facility] [place] [id number] Brian Domínguez MD [address], [place] [phone] Scheduled Procedures Name Priority Associated Diagnoses Date/Ti [...] 06/10/2021, 08/29/2020, 08/01/2020 CKD PHOS USE SMARTSET 00498 10/24/202310/05, 02/18/2022, 02/17/2022, Additional history exists Influenza [...] Additional history exists CKD HGB USE SMARTSET 25185 12/10/202412/10, 08/04/2023, 08/04/2023, Additional history exists O2 [...] this encounter Medical Devices Implanted Type Area In Home Aide Device Identifier Shelf Expiration Date Model / Serial / Lot Sut Steel 6 M654g - [id number] Implanted:Q[place]: 3 [place] [facility] [place] Chest DO NOT USE 01/15/2015 M654G / / [id number] [employer] 225-241 - [id number] Implanted:Qty: 1 on 02/15/2011 [place] [facility] [place]: Chest [employer] 225-241 / / [id number] Sut Steel 6 M654g - [id number] Implanted:Qty: 1 on 02/15/2011 [place] [facility] [place]: Chest DO NOT USE 07/21/2015 M654G / / [id number] documented as of this encounter Advance Directives Documents on File Type Date Recorded Patient Branch Service Leader Expl anation POLST 05/06/2018 POLST * Full [...] Relationship Healthcare Agent [facility] Communication Carolyn Goldmandrewnabila Adult Child Health Care Agent Care Teams Inner Tube Tuber Machine Operator Relationship Specialty Start Date End Date Brian Domínguez MD [address] [place] [address] PCP - General Family Medicine 07/16/17 documented as of this encounter
--- OUTSIDE RECORDS SUMMARY | 2024-03-03 08:01 | External Medical Summary | Summary of Care ---
Author Name Unknown Organization [facility] Address [address] [place] [address] Phone [phone] Care Team Providers Care Community Health Representative Name Role Phone Brian Domínguez MD Primary Care Provider +1- [phone] Reason for Visit * Reason Onset Date Comments Triage Advice 02/10/2024 Encounter Created in Error 02/10/2024 Encounter Details Date Type Department Care Team (Late st Contact Info) Description 02/10/2024 Telephone Urology, [facility] [address] [place], [place] [phone] Services, Scheduling [address] [place] [address] Triage Advice; Encounter Created in Error Allergies Active Allergy Reactions Criticality Noted Date Comments Propoxyphene Hcl Rash Low 10/29/2010 Fentanyl Diarrhea Low 04/26/2010 anxiety Methocarbamol Medium 10/05/2020 Other reaction(s): Delirium Methocarbamol Low 04/15/2007 Zolpidem Low 10/05/2020 Other reaction(s): Confusion documented as of this encounter (statuses as of 02/10/2024) Medications Medication Sig Dispensed Refills Start Date End Date Status venlafaxine XR (EFFEXOR XR) 150 MG [id number]:Dep ression Take 1 Cap by mouth daily. [...] Kit 11/18/2017 Active Blood Glucose Monitoring Suppl (BlueView TechnologiesUCH VERIO) w/Device KIT Use as directed. Use as directed. 1 Kit 10/31/2018 Active Spacer/Aero-Holding Chambers WISAM Use with inhaler. Wheezing/bronchitis . 1 Device 04/08/2019 Active Lancet Devices (iLostTOUCH DELICA LANCING DEV) MISC Use four times [...] INSTRUCTIONS Please arrange for as needed Home snf visit for obtaining straight cath urine sample [...] minutes 25 Tablet 5 10/16/2023 Active Nystatin 535691 UNIT/GM External Powder (Nystop)Indications :Candidal intertrigo Apply topically to affected area 3 times a day. Apply to right breast until rash resolved. 30 g 10/16/2023 Active Nystatin 788853 UNIT/ML Mouth/Throat Suspension SWISH AND SWALLOW 5ML IN THE MORNING AND 5ML AT NOON AND 5 ML IN THE EVENING AND 5ML BEFORE BEDTIME, FOR THRUSH 240 mL 1 10/16/2023 Active Metoprolol Succinate ER 25 MG Oral Tablet Extended Release 24 Hour (toPROL XL)Indications:HTN, goal below 130/80 TAKE 1 TABLET BY MOUTH EVERY MORNING 90 Tablet 10/25/2023 Active Vitamin D (Ergocalciferol) 1.25 MG (26791 UT) Oral Capsule (Drisdol)Indication s:Vitamin D deficiency [...] Oral Tablet (Demadex)Indication s:Atherosclerotic heart disease of [place] coronary artery with other forms of angina pectoris (HCC),Hypertensive heart disease with chronic diastolic congestive heart failure (HCC) TAKE 1 TABLET BY MOUTH EVERY MORNING. MAY TAKE 1 ADDITIONAL TABLET NEEDED FOR SWELLING. 90 Tablet 1 01/06/2024 Active Tamsulosin HCl 0.4 MG Oral Capsule (Flomax) TAKE 1 CAPSULE BY MOUTH EVERY MORNING 90 Capsule 01/12/2024 Active clonazePAM 0.5 MG Oral Tablet (KlonoPIN)Indicatio ns:Bipolar I disorder, most recent episode depressed, moderate (HCC) TAKE ONE TABLET BY MOUTH THREE TIMES DAILY 90 Tablet 01/14/2024 Active Xifaxan 550 MG Oral Tablet (rifAXIMin)Indicati ons:GONZALEZ (nonalcoholic steatohepatitis),Ch ronic liver disease and cirrhosis (HCC),Hepatic encephalopathy (HCC) take 1 tablet by mouth twice daily 60 Tablet 01/26/2024 Active Ondansetron HCl 8 MG Oral [...] as of this encounter (statuses as of 02/10/2024) Active Problems Problem Noted Date Diagnosed Date [...] Euvolemic today Coronary artery disease invo lving [place] coronary artery of [place] heart without angina pectoris 11/15/2021 Last Assessment [...] 01/16/22 Moderate aortic stenosis 05/06/2018 Anxiety 08/05/2017 Kfxtbjs-Zghsi-Joijl disease 06/27/2015 Last Assessment & Plan: Frequent [...] as of this encounter (statuses as of 02/10/2024) Resolved Problems Problem Noted Date Diagnosed Date [...] is giving this. 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-radiologic technology program director and ID Acute cystitis without hematuria 03/27/2021 07/08/2022 Pelvic pain 03/27/2021 02/03/2024 Type 2 diabetes mellitus wit h diabetic neuropathy 09/07/2018 11/07/2023 Overview: duplicate Mild protein-calorie malnutrition 05/07/2018 04/29/2019 Diabetes mellitus with neuropathy 05/06/2018 09/07/2018 Other cirrhosis of liver 05/06/2018 Atherosclerotic heart diseas e of [place] coronary artery with other forms of angina [...] stenosis 10/31/2010 08/28/2018 Acute coronary syndrome 10/30/201001/04 [facility] Research Other*[id number] 02/02/2010 04/18/2014 Overview: [place] Registry, Dr Joel CASAS Obesity, morbid (more [...] thrombosis 06/17/2006 01/21/2014 shelter current use of ant icoagulant therapy 06/17/2006 [...] as of this encounter (statuses as of 02/10/2024) Immunizations Name Administration Dates Next Due COVID-19 [...] encounter Miscellaneous Notes * Telephone Encounter - Fani Starr LPN - 02/10/2024 1:22 PM EDT Patients daughter came into the office to cupola melting supervisor additional supplies. Aware to call with questions/concerns. * Telephone Encounter - Tona Vines OSA - 02/10/2024 12:20 PM EDT Hi! I have the daughter of Angelina Ballard ( ) 1950 she is stating the pt has a crackin her catheter and would like to speak to a nurse I did try office line and received the vm documented in this encounter Plan of Treatment Upcoming Encounters Date Type Department Care Team (Late st Contact Info) Description 02/23/2024 1:30 PM EDT Office Visit Urology, [facility] [address] [address] Alfredo Panda MD [address] [place] [address] 02/25/2024 11:00 AM EDT Office Visit Cardiology, [facility] [address] [place] [address] Haydee Pop CRNP [address] [place] [address] 03/02/2024 4:00 PM EDT Imaging Radiology, [place] [address] [facility] [address] 03/09/2024 2:00 PM EDT Scheduled Telephone [facility], [facility] [address] [facility] [place] [address] Jesusita Saenz RDN [address] [place] [address] 03/22/2024 2:45 PM EDT Office Visit Urology, [facility] [address] [place] [address] Alfredo Panda MD [address] [place] [address] 03/29/2024 11:00 AM EDT Home Visit [facility] [place], [facility] [address] [facility] [place] [address] Kirby Valenzuela PA-C [address] [place] [address] 06/08/2024 6:00 PM EST Office Visit [facility] [address] [place] [phone] Brian Domínguez MD [address] [place] [address] Scheduled Procedures Name Priority Associated Diagnoses Date/Ti [...] 06/10/2021, 08/29/2020, 08/01/2020 CKD PHOS USE SMARTSET 03235 10/24/202310/05, 02/18/2022, 02/17/2022, Additional history exists Influenza [...] Additional history exists CKD HGB USE SMARTSET 90470 12/10/202412/10, 08/04/2023, 08/04/2023, Additional history exists O2 [...] this encounter Medical Devices Implanted Type Area Motion Picture Film Examiner Device Identifier Shelf Expiration Date Model / Serial / Lot Sut Steel 6 M654g - [id number] [place] [facility] [place] Chest DO NOT USE 01/15/2015 M654G / / [id number] Gaston Curran 225-241 - [id number] Implanted:Qty: 1 on 02[place]15[place]2011 [place] [facility] [place]: Chest [employer] 225-241 / / [id number] Sut Steel 6 M654g - [id number] Implanted:Qty: 1 on 02[place]2011 [place] [facility] [place]: Chest DO NOT USE 07/21/2015 M654G / / [id number] documented as of this encounter Advance Directives Documents on File Type Date Recorded Patient Snow Maker Expl anation POLST 05/06/2018 POLST * Full [...] Name Relationship Healthcare Agent [facility] p Communication Carolyn Ballard Adult Child Health Care Agent Care Teams Community Health Representative Relationship Specialty Start Date End Date Brian Domínguez MD [address] [facility] [place] [address] PCP - General Family Medicine 07/16/17 documented as of this encounter
--- OUTSIDE RECORDS SUMMARY | 2024-03-03 08:01 | External Medical Summary | Summary of Care ---
Author Name Unknown Organization [facility] Address [address] [place] [address] Phone [phone] Care Team Providers Care Veneer Stapler Name Role Phone Brian Domínguez MD Primary Care Provider +1- [phone] Reason for Visit * Reason Comments [facility]: Acute Encounter Details Date Type Department Care Team (Late st Contact Info) Description 01/05/2024 4:00 PM EDT Home Visit [facility], [facility] [address] [place] [address] Connie Mccullough, RN [address] [place] [address] Allergies Active Allergy Reactions Criticality Noted Date Comments Propoxyphene Hcl Rash Low 10/29/2010 Fentanyl Diarrhea Low 04/26/2010 anxiety Methocarbamol Medium 10/05/2020 Other reaction(s): Delirium Methocarbamol Low 04/15/2007 Zolpidem Low 10/05/2020 Other reaction(s): Confusion documented as of this encounter (statuses as of 02/10/2024) Medications Medication Sig Dispensed Refills Start Date End Date Status venlafaxine XR (EFFEXOR XR) 150 MG [id number]:De pression Take 1 Cap by mouth daily. [...] 11/19/19 18 Active Blood Glucose Monitoring Suppl (KitNipBox VERIO) w/Device KIT Use as directed. Use as directed. 1 Kit 11/01/19 19 Active Spacer/Aero-Holdin g Chambers WISAM Use with inhaler. Wheezing/bronchit is. 1 Device 04/08/20 19 Active Lancet Devices (Inango Systems LtdTOUCH DELICA LANCING DEV) MISC Use four times [...] 01/20/2024 Levothyroxine Sodium 88 MCG Oral Tablet (Levoxyl)Melotio ns:Hypothyroidism TAKE 1 TABLET BY MOUTH ONCE [...] 25 Tablet 5 10/16/19 24 Active Nystatin 763045 UNIT/GM External Powder (Nystop)Indication s:Candidal intertrigo Apply topically to affected area 3 times a day. Apply to right breast until rash resolved. 30 g 10/16/19 24 Active Nystatin 547278 UNIT/ML Mouth/Throat Suspension SWISH AND SWALLOW 5ML [...] 24 Active Vitamin D (Ergocalciferol) 1.25 MG (16951 UT) Oral Capsule (Drisdol)Melotio ns:Vitamin D deficiency TAKE 1 CAPSULE BY MOUTH ONCE WEEKLY 12 Capsule 3 11/10/19 24 Active Insulin Glargine Solostar 100 UNIT/ML Subcutaneous Solution Pen-injector (Lantus SoloStar)Melotio ns:Type 2 diabetes mellitus with stage 3a [...] week 3 mL 5 01/01/20 24 Active Ondansetron HCl 8 MG Oral Tablet (Zofran)Indication s:Nausea TAKE 1 TABLET BY MOUTH EVERY 8 HOURS NEEDED FOR NAUSEA 60 Tablet 5 12/10/19 23 024 Discontinued(Re fill) Xifaxan 550 MG Oral Tablet (rifAXIMin)Indicat ions:GONZALEZ (nonalcoholic steatohepatitis),C hronic liver disease and cirrhosis (HCC),Hepatic encephalopathy (HCC) TAKE 1 TABLET BY MOUTH TWICE DAILY 60 Tablet 5 07/16/19 24 024 Discontinued Pantoprazole Sodium 40 MG Oral Tablet [...] Euvolemic today Coronary artery disease invo lving [place] coronary artery of creek heart without angina pectoris 11/15/2021 Last Assessment [...] (H) 02/18/2019 02:55 PM Urge incontinence 03/27/2021 assisted (current) use of insulin 09/29/2019 Diabetic gastroparesis [...] 01/16/22 Moderate aortic stenosis 05/06/2018 Anxiety 08/05/2017 Vwtqydo-Tropa-Gqvmj disease 06/27/2015 Last Assessment & Plan: Frequent [...] is giving this. 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-dean of girls and ID Acute cystitis without hematuria 03/27/2021 07/08/2022 Pelvic pain 03/27/2021 02/03/2024 Type 2 diabetes mellitus wit h diabetic neuropathy 09/07/2018 11/07/2023 Overview: duplicate Mild protein-calorie malnutrition 05/07/2018 04/29/2019 Diabetes mellitus with neuropathy 05/06/2018 09/07/2018 Other cirrhosis of liver 05/06/2018 Atherosclerotic heart diseas e of [place] coronary artery with other forms of [...] stenosis 10/31/2010 08/28/2018 Acute coronary syndrome 10/30/201001/04 PERNELL Anaid Other*[id number] 02/02/2010 04/18/2014 Overview: [place] Registry, Dr Joel CASAS Obesity, morbid (more [...] 01/20/2024 Does the household have a re lar source of income? 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 Visit Date: 01/05/2024 Time: 1:16 PM Name: Angelina Ballard : 1950 Current Concerns: Pt had suprapubic cath placed at [facility] on Saturday 12/30 She reports she felt "terrible, really rough" all weekend" States she was having severe pain, like it was urethral pain like a UTI Taking Oxycodone for pain - states she tries not to take it much because she gets confused Suprapubic cath site has mod amt of serosang drainage with scant amt yellow noted There is mild redness around the site Advised dtr to note the amount of redness and continue to monitor Does not appear to be infected Pain now is 8/10, worse with palpation She states she was on Cefdinir a couple days but discussed possibly being on it longer post procedure but was not provided a script so not sure if she was to be on it or not Also requesting more supplies for s/p catheter, which should be supplied through urology thru [facility] Dtr has multiple questions regarding who is to be changing the catheter or irrigating if becomes obstructed, is HH needed, etc? TE sent to urologist with assessment and questions above Problems/Symptoms: Review of Systems Constitutional: Negative. Respiratory: Positive for shortness of breath (MONROE - at baseline). Cardiovascular: Positive for leg swelling. Genitourinary: Positive for pelvic pain and vaginal pain. Suprapubic catheter intact draining clear yellow urine Psychiatric/Behavioral: The patient is nervous/anxious. Physical Exam: BP 114/64 | Pulse 85 | Temp 35.8 C (96.4 F) | Resp 18 | SpO2 96% Pain 8 Physical Exam Constitutional: General: She is not in acute distress. Appearance: She is obese. Cardiovascular: Rate and Rhythm: Normal rate and regular rhythm. Pulses: Normal pulses. Heart sounds: Normal heart sounds. Pulmonary: Effort: Pulmonary effort is normal. Breath sounds: Normal breath sounds. Abdominal: Palpations: Abdomen is soft. Tenderness: There is abdominal tenderness (around s/p cath site). Musculoskeletal: Right lower leg: Edema present. Left lower leg: Edema present. Skin: General: Skin is warm and dry. Neurological: Mental Status: She is alert and oriented to person, place, and time. [facility]-10 Completed this Visit: Yes. [facility]-10: Reason Completed: Status post acute event/change in baseline [facility]-10 ([facility]) Fall Risk Assessment Tool Age 65+: Yes (02/10/241999) Diagnosis (3 or more co-existing): Yes (02/10/241999) Prior history of falls within 3 months: Yes (02/10/241999) Incontinence: No (02/10/241999) Visual impairment: No (02/10/241999) Impaired functional mobility: No (02/10/241999) Environmental hazards: No (02/10/241999) Poly Pharmacy (4 or more prescriptions - any type): Yes (02/10/241999) Pain affecting level of function: No (02/10/241999) Cognitive impairment: No (02/10/241999) Score - a score of 4 or more is considered at risk for fallin (02/10/241999) [facility]-10 Interventions: Fall education provided, reviewed/provided Fall brochure Treatment/Plan: Continue meds as prescribed/reviewed Continue to monitor redness and drainage of s/p cath site Cleanse site with mild soap and water daily and change drain sponge and as needed TE sent to urology regarding assessment and questions regarding above F/u with urology in clinic Home Interventions Provided: Home Intervention: Other; eval Consulted PCP/Specialist Reinforced current Plan of Care, including self-management and medication regimen Patient's 'Red Flags': Confusion Fever/chills hematuria Patient Needs to Remember: Call [facility] at with any new or worsening health concerns or problems, red flag symptoms. Referrals Needed: Other none Follow Up: Is there cellular connectivity/connectivity in the home? Yes Does the patient have internet in the home? Yes Patient encouraged to call the intake phone number for all urgent but not emergent issues. Scheduled to follow up with patient in 24 hrs. Connie Mccullough RN 01/05/2024 1:16 PM documented in this encounter Plan of Treatment Upcoming Encounters Date Type Department Care Team (Late st Contact Info) Description 02/23/2024 1:30 PM EDT Office Visit Urology, [facility] [address] [place] [address] Alfredo Panda MD [address] [address] 02/25/2024 11:00 AM EDT Office Visit Cardiology, [facility] [address] [place] [address] Haydee Pop CRNP [address] [place] [address] 03/02/2024 4:00 PM EDT [address], [address] [address] 03/09/2024 2:00 PM EDT Scheduled Telephone [facility], [facility] [address] [facility] [place] [address] Jesusita Saenz, RDN [address] [facility] [place] [address] 03/22/2024 2:45 PM EDT Office Visit Urology, [facility] [address] [place] [address] Alfredo Panda MD [address] [address] 03/29/2024 11:00 AM EDT [facility] Visit [facility], [facility] [address] [address] Kirby Valenzuela PA-C [address] [address] 06/08/2024 6:00 PM EST Office Visit [address] [id number] Brian Domínguez MD [address] [place] [address] Scheduled Procedures Name Priority Associated Diagnoses Date/Ti [...] 06/10/2021, 08/29/2020, 08/01/2020 CKD PHOS USE SMARTSET 66418 10/24/202310/05, 02/18/2022, 02/17/2022, Additional history exists Influenza [...] Additional history exists CKD HGB USE SMARTSET 88186 12/10/202412/10, 08/04/2023, 08/04/2023, Additional history exists O2 [...] this encounter Medical Devices Implanted Type Area Television Installer Device Identifier Shelf Expiration Date Model / Serial / Lot Sut Steel 6 M654g - [id number] Implanted:Qty: 3 on 02/15/2011 [place] [facility] [place]A: Chest DO NOT USE 01/15/2015 M654G / / [id number] Band Magdy 225-241 - [id number] Implanted:Qty: 1 on 02/15/2011 at [place] [facility] [place] N/A: Chest [employer] 225-241 / / [id number] Sut Steel 6 M654g - [id number] Implanted:Qty: 1 on 02/15/2011 at [place] [facility] [place] N/A: Chest DO NOT USE 07/21/2015 M654G / / [id number] documented as of this encounter Advance Directives Documents on File Type Date Recorded 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
--- OUTSIDE RECORDS SUMMARY | 2024-03-03 08:01 | External Medical Summary | Summary of Care ---
Author Name Unknown Organization [facility] Address [address] [place] [facility] [place] [address] Phone [phone] Care Team Providers Care Twister Tender Name Role Phone Brian Domínguez MD Primary Care Provider +1- [phone] Encounter Details Date Type Department Care Team (Late st Contact Info) Description 02/11/2024 Orders Only PATIENT PORTAL DO NOT DELETE THIS DEPT USED BY [place] ROBERT[place] [address] Allergies Active Allergy Reactions Criticality Noted Date Comments Propoxyphene Hcl Rash Low 10/29/2010 Fentanyl Diarrhea Low 04/26/2010 anxiety Methocarbamol Medium 10/05/2020 Other reaction(s): Delirium Methocarbamol Low 04/15/2007 Zolpidem Low 10/05/2020 Other reaction(s): Confusion documented as of this encounter (statuses as of 02/11/2024) Medications Medication Sig Dispensed Refills Start Date End Date Status venlafaxine XR (EFFEXOR XR) 150 MG [id number]:Dep ression Take 1 Cap by mouth daily. [...] Kit 11/18/2017 Active Blood Glucose Monitoring Suppl (Vang[employer] VERIO) w/Device KIT Use as directed. [...] minutes 25 Tablet 5 10/16/2023 Active Nystatin 908652 UNIT/GM External Powder (Nystop)Indications :Candidal intertrigo Apply topically to affected area 3 times a day. Apply to right breast until rash resolved. 30 g 10/16/2023 Active Nystatin 814812 UNIT/ML Mouth/Throat Suspension SWISH AND SWALLOW 5ML IN THE MORNING AND 5ML AT NOON AND 5 ML IN THE EVENING AND 5ML BEFORE BEDTIME, FOR THRUSH 240 mL 1 10/16/2023 Active Metoprolol Succinate ER 25 MG Oral Tablet Extended Release 24 Hour (toPROL XL)Indications:HTN, goal below 130/80 TAKE 1 TABLET BY MOUTH EVERY MORNING 90 Tablet 10/25/2023 Active Vitamin D (Ergocalciferol) 1.25 MG (10231 UT) Oral Capsule (Drisdol)Indication s:Vitamin D deficiency [...] Euvolemic today Coronary artery disease invo lving [place] coronary artery of [place] heart without angina pectoris 11/15/2021 Last Assessment [...] (H) 02/18/2019 02:55 PM Urge incontinence 03/27/2021 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-excel expert and ID Acute cystitis without hematuria 03/27/2021 07/08/2022 Pelvic pain 03/27/2021 02/03/2024 Type 2 diabetes mellitus wit h diabetic neuropathy 09/07/2018 11/07/2023 Overview: duplicate Mild protein-calorie malnutrition 05/07/2018 04/29/2019 Diabetes mellitus with neuropathy 05/06/2018 09/07/2018 Other cirrhosis of liver 05/06/2018 Atherosclerotic heart diseas e of [place] [...] stenosis 10/31/2010 08/28/2018 Acute coronary syndrome 10/30/201001/04 [employer] Other*[id number] 02/02/2010 04/18/2014 Overview: [place] Registry, Dr Joel [...] 02/23/2024 1:30 PM EDT Office Visit Urology, [facility] [address] [facility] [place] [address] Alfredo Panda MD [address] [address] 02/25/2024 11:00 AM EDT Office Visit Cardiology, [facility] [address] [facility] [place] [address] Haydee Pop CRNP [address] [facility] [place] [address] 03/02/2024 4:00 PM EDT Imaging Rad[facility], [place] [address] [facility] [address] 03/09/2024 2:00 PM EDT Scheduled Telephone [facility], [facility] [address] [facility] [place] [address] Jesusita Saenz RDN [address] [facility] [place] [address] 03/22/2024 2:45 PM EDT Office Visit Urology, [facility] [address] [facility] [place] [address] Alfredo Panda MD [address] [place] [address] 03/29/2024 11:00 AM EDT Home Visit [facility], [facility] [address] [facility] [place] [address] Kirby Valenzuela PA-C 132 [facility] [place] [address] 06/08/2024 6:00 PM EST [facility] Visit [facility] [address] [facility] [phone] Brian Domínguez MD [address] [place] [facility] [address] Scheduled Procedures Name Priority Associated Diagnoses Date/Ti [...] 06/10/2021, 08/29/2020, 08/01/2020 CKD PHOS USE SMARTSET 62832 10/24/202310/05, 02/18/2022, 02/17/2022, Additional history exists Influenza [...] Additional history exists CKD HGB USE SMARTSET 14788 12/10/202412/10, 08/04/2023, 08/04/2023, Additional history exists O2 [...] this encounter Medical Devices Implanted Type Area Real Estate Lawyer Device Identifier Shelf Expiration Date Model / Serial / Lot Sut Steel 6 M654g - [id number] Implanted:Qty: 3 on 02/15/2011 at [place] [facility] [place] N/A: Chest DO NOT USE 01/15/2015 M654G / / [id number] Band Magdy 225-241 - [id number] Implanted:Qty: 1 on 02/15/2011 at [place] [facility] [place] N/A: Chest [employer] 225-241 / / [id number] Sut Steel 6 M654g - [id number] Implanted:Qty: 1 on 02/15/2011 at [place] [facility] [place] N/A: Chest DO NOT USE 07/21/2015 M654G / / [id number] documented as of this encounter Advance Directives Documents on File Type Date Recorded 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
--- OUTSIDE RECORDS SUMMARY | 2024-03-03 08:02 | External Medical Summary | Summary of Care ---
Author Name Unknown Organization [facility] Address [address] [place] [address] Phone [phone] Care Team Providers Care Jumpbasting Armhole Baster Name Role Phone Brian Domínguez MD Primary Care Provider +1- [phone] Reason for Visit * Reason Onset Date Comments Information 02/09/2024 Encounter Details Date Type Department Care Team (Late st Contact Info) Description 02/09/2024 Telephone [facility], [place] [address] [place] [address] [phone] Services, Scheduling [address] [place] [address] Information Allergies Active Allergy Reactions Criticality Noted Date Comments Propoxyphene Hcl Rash Low 10/29/2010 Fentanyl Diarrhea Low 04/26/2010 anxiety Methocarbamol Medium 10/05/2020 Other reaction(s): Delirium Methocarbamol Low 04/15/2007 Zolpidem Low 10/05/2020 Other reaction(s): Confusion documented as of this encounter (statuses as of 02/09/2024) Medications Medication Sig Dispensed Refills Start Date End Date Status venlafaxine XR (EFFEXOR XR) 150 MG WE92Nhxrvdajlcc:Dep ression Take 1 Cap by mouth daily. [...] Kit 11/18/2017 Active Blood Glucose Monitoring Suppl (BuysightIO) w/Device KIT Use as directed. Use as directed. 1 Kit 10/31/2018 Active Spacer/Aero-Holding Chambers WISAM Use with inhaler. Wheezing/bronchitis . 1 Device 04/08/2019 Active Lancet Devices (SkuServeTOUCH DELICA LANCING DEV) MISC Use four times [...] INSTRUCTIONS Please arrange for as needed Home mcc visit for obtaining straight cath urine sample [...] minutes 25 Tablet 5 10/16/2023 Active Nystatin 207491 UNIT/GM External Powder (Nystop)Indications :Candidal intertrigo Apply topically to affected area 3 times a day. Apply to right breast until rash resolved. 30 g 10/16/2023 Active Nystatin 863037 UNIT/ML Mouth/Throat Suspension SWISH AND SWALLOW 5ML IN THE MORNING AND 5ML AT NOON AND 5 ML IN THE EVENING AND 5ML BEFORE BEDTIME, FOR THRUSH 240 mL 1 10/16/2023 Active Metoprolol Succinate ER 25 MG Oral Tablet Extended Release 24 Hour (toPROL XL)Indications:HTN, goal below 130/80 TAKE 1 TABLET BY MOUTH EVERY MORNING 90 Tablet 10/25/2023 Active Vitamin D (Ergocalciferol) 1.25 MG (91112 UT) Oral Capsule (Drisdol)Indication s:Vitamin D deficiency [...] Oral Tablet (Demadex)Indication s:Atherosclerotic heart disease of [place] coronary artery with other forms of [...] as of this encounter (statuses as of 02/09/2024) Active Problems Problem Noted Date Diagnosed Date [...] Euvolemic today Coronary artery disease invo lving [place] coronary artery of [place] heart without angina pectoris 11/15/2021 Last [...] (H) 02/18/2019 02:55 PM Urge incontinence 03/27/2021 skilled nursing (current) use of insulin 09/29/2019 Diabetic gastroparesis [...] 01/16/22 Moderate aortic stenosis 05/06/2018 Anxiety 08/05/2017 Lfpmwqv-Amvoi-Nucrh disease 06/27/2015 Last Assessment & Plan: Frequent [...] as of this encounter (statuses as of 02/09/2024) Resolved Problems Problem Noted Date Diagnosed Date [...] is giving this. 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-acls nurse and ID Acute cystitis without hematuria 03/27/2021 07/08/2022 Pelvic pain 03/27/2021 02/03/2024 Type 2 diabetes mellitus wit h diabetic neuropathy 09/07/2018 11/07/2023 Overview: duplicate Mild protein-calorie malnutrition 05/07/2018 04/29/2019 Diabetes mellitus with neuropathy 05/06/2018 09/07/2018 Other cirrhosis of liver 05/06/2018 Atherosclerotic heart diseas e of [place] coronary artery with other forms of [...] stenosis 10/31/2010 08/28/2018 Acute coronary syndrome 10/30/201001/04 [employer] Other*[id number] 02/02/2010 04/18/2014 Overview: [place] Registry, Dr Joel ACSAS Obesity, morbid (more than 1 00 lbs [...] 06/17/2006 01/21/2014 skilled nursing current use of ant icoagulant therapy 06/17/2006 [...] as of this encounter (statuses as of 02/09/2024) Immunizations Name Administration Dates Next Due COVID-19 [...] encounter Miscellaneous Notes * Telephone Encounter - Kristen Jordan OSA - 02/09/2024 4:16 PM EDT Incoming call from Brittney at [facility] requesting that we send the order for the suprapubic change / complex. Faxed to Brittney at [facility] at [phone]. documented in this encounter Plan of Treatment Upcoming Encounters Date Type Department Care Team (Late st Contact Info) Description 02/23/2024 1:30 PM EDT Office Visit Urology, [facility] [address] [address] Alfredo Panda MD [address] [place] [address] 02/25/2024 11:00 AM EDT Office Visit Cardiology, [facility] [address] [address] [address] Haydee Pop CRNP [address] [place] [address] 03/02/2024 4:00 PM EDT [address] Rad[address], [address] [address] 03/09/2024 2:00 PM EDT Scheduled Telephone [facility], [facility] [address] [facility] [place] [address] Jesusita Saenz, RDN [address] [place] [address] 03/22/2024 2:45 PM EDT Office Visit Urology, [facility] [address] [place] [address] Alfredo Panda MD [address] [address] 03/29/2024 11:00 AM EDT Home Visit [facility], [facility] [address] [address] Kirby Valenzuela PA-C [address] [place] [address] 06/08/2024 6:00 PM EST Office Visit [facility] [address] [place] [facility] [place] [address] Brian Domínguez MD [address] [place], [place] [id number] Scheduled Procedures Name Priority Associated Diagnoses Date/Ti [...] 06/10/2021, 08/29/2020, 08/01/2020 CKD PHOS USE SMARTSET 86111 10/24/202310/05, 02/18/2022, 02/17/2022, Additional history exists Influenza [...] Additional history exists CKD HGB USE SMARTSET 84747 12/10/202412/10, 08/04/2023, 08/04/2023, Additional history exists O2 [...] encounter Medical Devices Implanted Type Area Supervisor Road Administrator Device Identifier Shelf Expiration Date Model / Serial / Lot Sut Steel 6 M654g - [id number] Implanted:Qty: 3 on 02/15/2011 at [place] [facility] [place] N/A: Chest DO NOT USE 01/15/2015 M654G / / [id number] [facility] 225-241 - [id number] Implanted:Qty: 1 on 02/15/2011 at [place] [facility] [place] N/A: Chest [employer] 225-241 / / [id number] Sut Steel 6 M654g - [id number] Implanted:Qty: 1 on 02/15/2011 at [place] [facility] [place] N/A: Chest DO NOT USE 07/21/2015 M654G / / [id number] documented as of this encounter Advance Directives Documents on File Type Date Recorded 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
--- OUTSIDE RECORDS SUMMARY | 2024-03-03 08:02 | External Medical Summary | Summary of Care ---
Author Name Unknown Organization [facility] Address [address] [place] [address] Phone [phone] Care Team Providers Care Etl Analyst Name Role Phone Brian Domínguez MD Primary Care Provider [phone] Reason for Visit * Reason Onset Date Comments Triage Advice 02/10/2024 Encounter Created in Error 02/10/2024 Encounter Details Date Type Department Care Team (Late st Contact Info) Description 02/10/2024 Telephone Urology, [facility] [address], [place] [id number] Services, Scheduling [address] [place] [address] Triage Advice; Encounter Created in Error Allergies [...] Status venlafaxine XR (EFFEXOR XR) 150 MG [id number]:Dep ression Take 1 Cap by mouth daily. [...] Kit 11/18/2017 Active Blood Glucose Monitoring Suppl (MeetLinkshareUCH VERIO) w/Device KIT Use as directed. Use as directed. 1 Kit 10/31/2018 Active Spacer/Aero-Holding Chambers WISAM Use with inhaler. Wheezing/bronchitis . 1 Device 04/08/2019 Active Lancet Devices (Nautilus BiotechTOUCH DELICA LANCING DEV) MISC Use four times [...] INSTRUCTIONS Please arrange for as needed Home intermediate visit for obtaining straight cath urine sample [...] minutes 25 Tablet 5 10/16/2023 Active Nystatin 750898 UNIT/GM External Powder (Nystop)Indications :Candidal intertrigo Apply topically to affected area 3 times a day. Apply to right breast until rash resolved. 30 g 10/16/2023 Active Nystatin 648543 UNIT/ML Mouth/Throat Suspension SWISH AND SWALLOW 5ML IN THE MORNING AND 5ML AT NOON AND 5 ML IN THE EVENING AND 5ML BEFORE BEDTIME, FOR THRUSH 240 mL 1 10/16/2023 Active Metoprolol Succinate ER 25 MG Oral Tablet Extended Release 24 Hour (toPROL XL)Indications:HTN, goal below 130/80 TAKE 1 TABLET BY MOUTH EVERY MORNING 90 Tablet 10/25/2023 Active Vitamin D (Ergocalciferol) 1.25 MG (19957 UT) Oral Capsule (Drisdol)Indication s:Vitamin D deficiency [...] Euvolemic today Coronary artery disease invo lving [place] coronary artery of [place] heart without angina pectoris 11/15/2021 Last Assessment [...] (H) 02/18/2019 02:55 PM Urge incontinence 03/27/2021 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 ID Acute cystitis without hematuria 03/27/2021 07/08/2022 Pelvic pain 03/27/2021 02/03/2024 Type 2 diabetes mellitus wit h diabetic neuropathy 09/07/2018 11/07/2023 Overview: duplicate Mild protein-calorie malnutrition 05/07/2018 04/29/2019 Diabetes mellitus with neuropathy 05/06/2018 09/07/2018 Other cirrhosis of liver 05/06/2018 Atherosclerotic heart diseas e of [place] coronary [...] stenosis 10/31/2010 08/28/2018 Acute coronary syndrome 10/30/201001/04 [employer] Other*[id number] 02/02/2010 04/18/2014 Overview: [place] [facility], Dr Joel [...] encounter Miscellaneous Notes * Telephone Encounter - Tona Vines OSA [...] 02/23/2024 1:30 PM EDT Office Visit Urology, [facility] [address] [place] [address] Alfredo Panda MD [address] [address] 02/25/2024 11:00 AM EDT Office Visit Cardiology, [facility] [address] [facility] [place] [address] Haydee Pop CRNP [address] [facility] [place] [address] 03/02/2024 4:00 PM EDT Imaging Radiology, [address] [place] [address] 03/09/2024 2:00 PM EDT Scheduled Telephone [facility], [facility] [address] [place] [facility] [place] [address] Jesusita Saenz RDN [address] [place] [address] 03/22/2024 2:45 PM EDT Office Visit Urology, [facility] [address] [place] [address] Alfredo Panda MD [address] [address] 03/29/2024 11:00 AM EDT Home Visit [facility], [facility] [address] [address] Kirby Valenzuela PA-C [address] [place] [address] 06/08/2024 6:00 PM EST Office Visit [facility] [address] [place] [phone] Brian Domínguez MD [address] [place] [address] Scheduled Procedures Name Priority Associated Diagnoses Date/Ti [...] 06/10/2021, 08/29/2020, 08/01/2020 CKD PHOS USE SMARTSET 11139 10/24/202310/05, 02/18/2022, 02/17/2022, Additional history exists Influenza [...] Additional history exists CKD HGB USE SMARTSET 33651 12/10/202412/10, 08/04/2023, 08/04/2023, Additional history exists O2 [...] this encounter Medical Devices Implanted Type Area Crumb Packer Device Identifier Shelf Expiration Date Model / Serial / Lot Sut Steel 6 M654g - [id number] Implanted:Qty: 3 on 02/15/2011 at OR [facility] N/A: Chest DO NOT USE 01/15/2015 M654G / / [id number] Band Magdy 225-241 - [id number] Implanted:Qty: 1 on 02/15/2011 at OR [facility] N/A: Chest [employer] 225-241 / / [id number] Sut Steel 6 M654g - [id number] Implanted:Qty: 1 on 02/15/2011 at OR [facility] N/A: Chest DO NOT USE 07/21/2015 M654G / / [id number] documented as of this encounter Advance Directives Documents on File Type Date Recorded 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
--- OUTSIDE RECORDS SUMMARY | 2024-03-03 08:02 | External Medical Summary | Summary of Care ---
Author Name Unknown Organization [facility] Address [address] [place] [address] Phone [phone] Care Team Providers Care Physician Locums Urgent Care Name Role Phone Brian Domínguez MD Primary Care Provider [phone]- [phone] Reason for Visit * Reason Onset Date Comments Triage Advice 02/10/2024 Encounter Created in Error 02/10/2024 Encounter Details Date Type Department Care Team (Late st Contact Info) Description 02/10/2024 Telephone Urology, [facility] [address] [place], [place] [phone] Services, Scheduling [address] [place] [address] Triage Advice; Encounter Created in Error Allergies [...] Status venlafaxine XR (EFFEXOR XR) 150 MG VR52Krywpcdyzhw:Dep ression Take 1 Cap by mouth daily. [...] Kit 11/18/2017 Active Blood Glucose Monitoring Suppl (Urban MappingUCH VERIO) w/Device KIT Use as directed. Use as directed. 1 Kit 10/31/2018 Active Spacer/Aero-Holding Chambers WISAM Use with inhaler. Wheezing/bronchitis . 1 Device 04/08/2019 Active Lancet Devices (Aspects SoftwareTOUCH DELICA LANCING DEV) MISC Use four times [...] INSTRUCTIONS Please arrange for as needed Home jail visit for obtaining straight cath urine sample [...] minutes 25 Tablet 5 10/16/2023 Active Nystatin 620750 UNIT/GM External Powder (Nystop)Indications :Candidal intertrigo Apply topically to affected area 3 times a day. Apply to right breast until rash resolved. 30 g 10/16/2023 Active Nystatin 709223 UNIT/ML Mouth/Throat Suspension SWISH AND SWALLOW 5ML IN THE MORNING AND 5ML AT NOON AND 5 ML IN THE EVENING AND 5ML BEFORE BEDTIME, FOR THRUSH 240 mL 1 10/16/2023 Active Metoprolol Succinate ER 25 MG Oral Tablet Extended Release 24 Hour (toPROL XL)Indications:HTN, goal below 130/80 TAKE 1 TABLET BY MOUTH EVERY MORNING 90 Tablet 10/25/2023 Active Vitamin D (Ergocalciferol) 1.25 MG (79102 UT) Oral Capsule (Drisdol)Indication s:Vitamin D deficiency [...] Euvolemic today Coronary artery disease invo [place]ving [place] coronary artery of [place] heart without angina pectoris 11/15/2021 Last Assessment [...] (H) 02/18/2019 02:55 PM Urge incontinence 03/27/2021 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 Acute cystitis without hematuria 03/27/2021 07/08/2022 Pelvic pain 03/27/2021 02/03/2024 Type 2 diabetes mellitus wit h diabetic neuropathy 09/07/2018 11/07/2023 Overview: duplicate Mild protein-calorie malnutrition 05/07/2018 04/29/2019 Diabetes mellitus with neuropathy 05/06/2018 09/07/2018 Other cirrhosis of liver 05/06/2018 Atherosclerotic heart diseas e of [place] [...] stenosis 10/31/2010 08/28/2018 Acute coronary syndrome 10/30/201001/04 [place] [employer] Other*[id number] 02/02/2010 04/18/2014 Overview: [place] [facility], Dr Joel [...] 02/23/2024 1:30 PM EDT Office Visit Urology, [facility] [address] [place] [address] Alfredo Panda MD [address] [address] 02/25/2024 11:00 AM EDT Office Visit Cardiology, [facility] [address] [facility] [place] [address] Haydee Pop CRNP [address] [facility] [place] [address] 03/02/2024 4:00 PM EDT Imaging Radiology, [address] [place] [address] 03/09/2024 2:00 PM EDT Scheduled Telephone [facility], [facility] [address] [place] [facility] [place] [address] Jesusita Saenz RDN [address] [place] [facility] [place] [address] 03/22/2024 2:45 PM EDT Office Visit Urology, [facility] [address] [place] [address] Alfredo Panda MD [address] [address] 03/29/2024 11:00 AM EDT Home Visit [facility], [facility] [address] [address] Kirby Valenzuela PA-C [address] [place] [address] 06/08/2024 6:00 PM EST Office Visit [facility] [address] [place] [phone] Brian Domínguez MD [address] [place] [address] Scheduled Procedures Name Priority Associated Diagnoses Date/Ti [...] 06/10/2021, 08/29/2020, 08/01/2020 CKD PHOS USE SMARTSET 33811 10/24/202310/05, 02/18/2022, 02/17/2022, Additional history exists Influenza [...] Additional history exists CKD HGB USE SMARTSET 47988 12/10/202412/10, 08/04/2023, 08/04/2023, Additional history exists O2 [...] this encounter Medical Devices Implanted Type Area Candle Molder Hand Device Identifier Shelf Expiration Date Model / Serial / Lot Sut Steel 6 M654g - [id number] Implanted:Qty: 3 on 02/15/2011 at [place] [facility] N/A: Chest DO NOT USE 01/15/2015 M654G / / [id number] Band Magdy 225-241 - [id number] Implanted:Qty: 1 on 02/15/2011 at [place] [facility] N/A: Chest [employer] 225-241 / / [id number] Sut Steel 6 M654g - [id number] Implanted:Qty: 1 on 02/15/2011 at [place] [facility] N/A: Chest DO NOT USE 07/21/2015 M654G / / [id number] documented as of this encounter Advance Directives Documents on File Type Date Recorded 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
--- OUTSIDE RECORDS SUMMARY | 2024-03-03 08:03 | External Medical Summary | Summary of Care ---
Author Name Unknown Organization [facility] Address [address] [place] [address] Phone [phone] Care Team Providers Care Farm Equipment Engine Mechanic Name Role Phone Brian Domínguez MD Primary Care Provider [phone] Reason for Referral * Evaluate & Treat - Unlimited Visits (Within 10 days (routine)) - Authorized Specialty Diagnoses / Procedures Referred By Mitchell chavez Referred To Contact HOME CARE / Home Care Diagnoses COPD, group B, by GOLD 2017 classification (HCC) 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) Generalized weakness Kirby Valenzuela PA-C [address] [place] [address] Referral ID Status Reason Start Date Expiration Date Visits Requested Visits Authorized [id number] Authorized Specialty Services Required 02/09/2024 999 999 Question Answer Referral Priority Within 10 days (routine) Where should this appointment be scheduled? Manpreet Comments Documentation of Kpnb-bi-Mqvv Encounter Addendum Patient Name: Angelina Ballard I certify that this patient is under my care and that I, or a nurse practitioner or physician's advertising assistant working with me, had a dnoz-sb-iwho encounter that meets the physician qxba-wq-gpmj encounter requirements with this patient on: 02/09/2024 The encounter with the patient was in whole, or in part, for the following medical condition, which is the primary reason for home health care (List medical condition): ADL dysfunction I certify that, based on my findings, the following services are medically necessary home health services: Physical Therapy To provide the following care/treatments: (All hospitalists not following the patient after discharge should complete this section): eval and treat, maximize home independence and safety Primary Care Physician to follow home care plan of care after discharge: Brian Domínguez MD My clinical findings support the need for the above services because: frequent falls Further, I certify that my clinical findings support that this patient is homebound (i.e. Absences from home require considerable and taxing effort and are for medical reasons or [facility] services or infrequently or of short duration when for other reason) because: Weakness, fall risk, does not drive Physician Signature: Date of Signature: Physician Printed Name: Kirby Valenzuela PA-C Encounter Details Date Type Department Care Team (Late st Contact Info) Description 02/09/2024 9:00 AM EDT Home Visit [facility] at [facility] [address] [facility] [place] [id number] Kirby Valenzuela PA-C [address] [place] [address] COPD, group B, by GOLD 2017 classification ([facility])*; Bipolar I disorder, most recent episode depressed, moderate ([facility]); Chronic liver disease and cirrhosis (HCC); 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); Type 2 diabetes mellitus with stage 3a chronic kidney disease, with long-term current use of insulin (HCC); Suprapubic catheter ([facility]); Generalized weakness; Advanced care planning/counseling discussion Allergies Active Allergy Reactions Criticality Noted Date Comments Propoxyphene Hcl Rash Low 10/29/2010 Fentanyl Diarrhea Low 04/26/2010 anxiety Methocarbamol Medium 10/05/2020 Other reaction(s): Delirium Methocarbamol Low 04/15/2007 Zolpidem Low 10/05/2020 Other reaction(s): Confusion documented as of this encounter (statuses as of 02/09/2024) Medications Medication Sig Dispensed Refills Start Date End Date Status venlafaxine XR (EFFEXOR XR) 150 MG [id number]:Dep ression Take 1 Cap by mouth daily. [...] Kit 11/18/2017 Active Blood Glucose Monitoring Suppl (Shoot Extreme VERIO) w/Device KIT Use as directed. Use as directed. 1 Kit 10/31/2018 Active Spacer/Aero-Holding Chambers WISAM Use with inhaler. Wheezing/bronchitis . 1 Device 04/08/2019 Active Lancet Devices (InhibOxTOUCH DELICA LANCING DEV) MISC Use four times [...] minutes 25 Tablet 5 10/16/2023 Active Nystatin 204854 UNIT/GM External Powder (Nystop)Indications :Candidal intertrigo Apply topically to affected area 3 times a day. Apply to right breast until rash resolved. 30 g 10/16/2023 Active Nystatin 835625 UNIT/ML Mouth/Throat Suspension SWISH AND SWALLOW 5ML IN THE MORNING AND 5ML AT NOON AND 5 ML IN THE EVENING AND 5ML BEFORE BEDTIME, FOR THRUSH 240 mL 1 10/16/2023 Active Metoprolol Succinate ER 25 MG Oral Tablet Extended Release 24 Hour (toPROL XL)Indications:HTN, goal below 130/80 TAKE 1 TABLET BY MOUTH EVERY MORNING 90 Tablet 10/25/2023 Active Vitamin D (Ergocalciferol) 1.25 MG (13386 UT) Oral Capsule (Drisdol)Indication s:Vitamin D deficiency [...] Oral Tablet (Demadex)Indication s:Atherosclerotic heart disease of [place] coronary artery with other forms of angina [...] Euvolemic today Coronary artery disease invo lving [place] coronary artery of [place] heart without angina pectoris 11/15/2021 Last Assessment [...] (H) 02/18/2019 02:55 PM Urge incontinence 03/27/2021 FDC (current) use of [...] 01/16/22 Moderate aortic stenosis 05/06/2018 Anxiety 08/05/2017 Ulfgvzv-Mrmvd-Xpjns disease 06/27/2015 Last Assessment & Plan: Frequent [...] is giving this. 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-front edger and ID Acute cystitis without hematuria 03/27/2021 07/08/2022 Pelvic pain 03/27/2021 02/03/2024 Type 2 diabetes mellitus wit h diabetic neuropathy 09/07/2018 11/07/2023 Overview: duplicate Mild protein-calorie malnutrition 05/07/2018 04/29/2019 Diabetes mellitus with neuropathy 05/06/2018 09/07/2018 Other cirrhosis of liver 05/06/2018 Atherosclerotic heart diseas e of [place] coronary artery with other forms of angina [...] stenosis 10/31/2010 08/28/2018 Acute coronary syndrome 10/30/201001/04 [employer] Other*[id number] 02/02/2010 04/18/2014 Overview: Karen Registry, Dr Joel [...] #2. 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/2014 terminal gauger current use of ant icoagulant therapy 06/17/2006 [...] Sign Reading Time Taken Comments Blood Pressure 108/60 02/09/2024 9:47 AM EDT Pulse 67 02/09/2024 9:47 AM EDT Temperature - - Respiratory Rate - - Oxygen Saturation 96% 02/09/2024 9:47 AM EDT Inhaled Oxygen Concentration - - Weight - - Height - - Body Mass Index - - documented in this encounter Progress Notes * Kirby Valenzuela PA-C - 02/09/2024 9:15 AM EDT Images from the original note were not included. [facility] Problem Oriented Charting Provider Visit Date: 02/09/2024 Time: 9:15 AM [facility] Sub-Program: Focused Care Management (3-9 months) Assessment and Plan #1 COPD, group B, by GOLD 2017 classification ([facility]) (Primary) Overview: Per COPD GOLD Classification Assessment & Plan: "RED FLAG" COPD symptoms: [...] Chest Xray Additional Comments: Breathing stable today Orders: - Home Health Referral OP #2 Bipolar I disorder, most recent episode depressed, moderate ([facility]) Assessment & Plan: Follows with Dr CHARLES, psychiatry Continue abilify, effexor, trazodone, and lamictal #3 Chronic liver disease and cirrhosis (HCC) #4 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) Assessment & Plan: "RED FLAG" HF Symptoms: [...] 100 mg BMP Additional Comments: Euvolemic today Orders: - Home Health Referral OP #5 Type 2 diabetes mellitus with stage 3a chronic kidney disease, with long-term current use of insulin ([facility]) Assessment & Plan: "RED FLAG" Diabetic symptoms: [...] - [facility] 6.3 (H) 02/18/2019 02:55 PM #6 Suprapubic catheter (HCC) #7 Generalized weakness - Home Health Referral OP #8 Advanced care planning/counseling discussion Additional Medical Decision Making: Patient lives in single level apartment Has 24/7 caregivers (including daughter and granddaughter) Requires assistance with all ADLs and IADLs Daughter manages meds Follows with Dr Charly bejarano Unable to locate previous POLST (2019), reviewed with patient and daughter Patient would like to think about it prior to completing again Scheduled appointments in the next 60 days: Future Appointments-next 60 days Date/Time Provider Specialty Dept Phone 02/23/2024 1:30 PM (Arrive by 1:15 PM) Alfredo Panda MD Urology [phone] 02/25/2024 11:00 AM (Arrive by 10:45 AM) Haydee Pop CRNP Cardiology [phone] 03/02/2024 4:00 PM [facility] Rad[facility] [phone] 03/09/2024 2:00 PM Jesusita Saenz RDN [facility] [phone] 03/22/2024 2:45 PM (Arrive by 2:30 PM) Alfredo Panda MD Urology [phone] 06/08/2024 6:00 PM (Arrive by 5:45 PM) Brian Domínguez MD Family Medicine [phone] A total of 40 minutes was spent face to face (via video-based telemedicine if designated as a telemedicine visit) Subjective Subjective Is this a Telemedicine Visit? No, this is an Home Visit. Reason For [facility] Visit: Enrollment Current Concerns: Angelina Ballard is a 73 year old female seen today for a [facility] provider visit. PMH includes COPD, bipolar, liver cirrhosis, CAD, dyslipidemia, HTN, CHF, CKD3, hypothyroidism, IDDM, aortic stenosis Today's concerns are: Daughter (eliot) present at visit Patient sitting in recliner Complains of chronic cough Denies SOB, wheezing, fever/chills Remains fairly sedentary Daughter reports increased weakness and fall risk Had a fall yesterday from recliner, required EMS for lift assist Family requesting home PT Appetite stable Denies n/v, bowels regular Blood sugar runs 100-170 Additional Objective Objective Vitals: 02/09/24 0947 Pulse: 67 SpO2: 96% BP: 108/60 Last Weights: Wt Readings from Last 3 Encounters: 12/25/23 110.2 kg (243 lb) 12/24/23 110.2 kg (243 lb) 12/15/23 110.2 kg (243 lb) Last BPs: BP Readings from Last 4 Encounters: 02/09/24 108/60 01/05/24 114/64 12/31/23 123/74 12/24/23 149/71 General: alert, no distress, and obese Neuro: alert & oriented x 3 with fluent speech Heart: regular rate & rhythm and +murmur Lungs: no chest wall tenderness, lungs clear to auscultation Abdomen: abdomen soft, non-tender, obese, normal bowel sounds, and suprapubic tube Ext: mild edema LLE Lab Review: I have reviewed the following results: Imaging results in the last [address] ABD/PELVIS WO IV/ORAL CONTRAST Result Date: 11/06/2023 IMPRESSION Nonspecific bladder wall thickening, with differential including changes from chronic urinary retention and cystitis. Consider UA, if clinically warranted/not recently done. Insufficient study for evaluation for potential pyelonephritis, if present. No mineralized nephroureteral stone orbladder stone. Nonacute splenomegaly. Other incidental/nonacute findings, as above. BMP results Recent Labs Units 10/21/23 1207 08/04/23 0914 06/17/23 1233 SODIUM - [facility] mmol/L 132* 131* 129* POTASSIUM - [facility] mmol/L 4.3 4.3 4.3 CHLORIDE - [facility] mmol/L 96* 94* 95* CO2 - [facility] mmol/L 24 27 21* CREATININE - [facility] mg/dL 1.0 1.3* 1.0 BUN - [facility] mg/dL 13 20 14 CBC results Recent Labs Units 12/11/23 0000 08/04/23 0914 06/17/23 1233 06/09/23 0659 WBC K/uL -- 11.97* 6.34 7.21 HGB G/DL 12.9 14.0 12.2 11.4* HCT % -- 42.4 39.1 34.9* PLT K/uL -- 128* 144 129* HbA1c results Recent Labs Units 12/11/23 0000 06/17/23 1233 10/23/22 1046 HEMOGLOBIN A1C - [facility] % -- 5.5 6.3* HEMOGLOBIN, [id number] LAB % 6.2* -- -- Medication Review Med list unavailable at time of visit Kirby Valenzuela PA-C 9:15 AM *Communication sent to PCP (via autofax if non-[facility]), [facility] Health Care Team members,relevant Specialty Care Physicians* documented in this encounter Miscellaneous Notes * ACP (Advance Care Planning) - Kirby Valenzuela PA-C - 02/09/2024 1:48 PM EDT Patient-centered Communication 02/09/2024 The patient/surrogate voluntarily agreed to participate in advance care planning discussion. They were advised that this is a separate service which may incur out of pocket cost in the form of copayment and/or deductibles. Location: Home Individual(s) present for conversation: Patient and Daughter(s) Decisions Synopsis [employer] Most Recent Value Past ~10 years 02/09/2024 13:47 Decisions CPR decision: Undecided about CPR 02/09/2024 Undecided about CPR Intubation/Mechanical Ventilation decision: Undecided about Intubation/mechanical ventilation 02/09/2024 Undecided about Intubation/mechanical ventilation Non-invasive ventilation or BIPAP decision: Patient chooses non-invasive ventilation. Select interventions below 03/12/2022 Antibiotic therapy decision: Patient chooses Antibiotic therapy 03/12/2022 Artificial nutrition decision: Patient chooses Artificial nutrition 03/12/2022 IV hydration decision: Patient chooses IV hydration 03/12/2022 Blood transfusion decision: Patient chooses Blood transfusion 03/12/2022 Additional Comments Synopsis [employer] Most Recent Value Past ~10 years 02/09/2024 13:47 Additional Comments Additional Comments: previously DNR/DNI. Would like to review POLST with family prior to completing. 02/09/2024 previously DNR/DNI. Would like to review POLST with family prior to completing. Discerning What Matters Most to the Patient: Synopsis [employer] Most Recent Value Past ~10 years 02/09/2024 13:46 Discerning What Matters Most to the Patient Their current SYMPTOMS include: Pain;Tiredness 02/09/2024 Pain;Tiredness The patient's HOPES are: Avoid the jail 02/09/2024 Avoid the jail Source: Content from [employer] Aligning Care With What Matters Most: Synopsis [employer] Most Recent Value Past ~10 years 02/09/2024 13:47 Aligning Care With What Matters Most Interventions/Choices: CPR;Intubation/mechanical ventilation 02/09/2024 CPR;Intubation/mechanical ventilation Source: Content from [employer] [facility] 10 minutes spent in direct dvjx-wc-kbut discussion Kirby johnson PA-C * Assessment & Plan Note - Kirby Valenzuela PA-C - 02/09/2024 1:46 PM EDT Associated Problem(s): Type 2 diabetes mellitus with stage 3a chronic kidney disease, with long-term current use of insulin (HCC) "RED FLAG" Diabetic symptoms: Excessive Thirst, Confusion, [...] [facility] 6.3 (H) 02/18/2019 02:55 PM * Assessment & Plan Note - Kirby Valenzuela PA-C - 02/09/2024 1:44 PM EDT Associated Problem(s): 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) "RED FLAG" HF Symptoms: Leg Swelling Increased [...] 100 mg BMP Additional Comments: Euvolemic today * Assessment & Plan Note - Kirby Valenzuela PA-C - 02/09/2024 1:42 PM EDT Associated Problem(s): Bipolar I disorder, most recent episode depressed, moderate (HCC) Follows with Dr CHARLES, psychiatry Continue abilify, effexor, trazodone, and lamictal * Assessment & Plan Note - Kirby Valenzuela PA-C - 02/09/2024 1:41 PM EDT Associated Problem(s): COPD, group B, by GOLD 2017 classification (HCC) "RED FLAG" COPD symptoms: Increased shortness of [...] Chest Xray Additional Comments: Breathing stable today documented in this encounter Plan of Treatment Upcoming Encounters Date Type Department Care Team (Late st Contact Info) Description 02/23/2024 1:30 PM EDT Office Visit Urology, [facility] [address] [place] [address] Alfredo Panda MD [address] [place] [address] 02/25/2024 11:00 AM EDT Office Visit Cardiology, [facility] [address] [place] [address] [address] Haydee Pop CRNP [address] [place] [address] 03/02/2024 4:00 PM EDT [address] [address] 03/09/2024 2:00 PM EDT Scheduled Telephone [facility], [facility] [address] [facility] [place] [address] Jesusita Saenz, RDN [address] [facility] [place] [address] 03/22/2024 2:45 PM EDT Office Visit Urology, [facility] [address] [place] [address] Alfredo Panda MD [address] [place] [address] 03/29/2024 11:00 AM EDT Home Visit [facility], [facility] [address] [place] [address] Kirby Valenzuela PA-C [address] [place] [address] 06/08/2024 6:00 PM EST Office Visit [place] [address] [place] [address] Brian Domínguez MD [address] [place] [address] Scheduled Procedures Name Priority Associated Diagnoses Date/Ti me COLONOSCOPY FLEXIBLE PROXIMA L DIAGNOSTIC Recall Special screening for malignant neoplasms, colon Scheduled Referrals Name Type Priority Associated Diagnoses Orde r Schedule HOME HEALTH REFERRAL OP Referral Within 10 days (routine) COPD, group B, by GOLD 2017 classification (HCC) 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) Generalized weakness Ordered: 02/09/2024 Health Maintenance Due Date Last Done Comments [...] 06/10/2021, 08/29/2020, 08/01/2020 CKD PHOS USE SMARTSET 17969 10/24/202310/05, 02/18/2022, 02/17/2022, Additional history exists Influenza [...] Additional history exists CKD HGB USE SMARTSET 73321 12/10/202412/10, 08/04/2023, 08/04/2023, Additional history exists O2 [...] this encounter Medical Devices Implanted Type Area Prop Attendant Device Identifier Shelf Expiration Date Model / Serial / Lot Sut Steel 6 [id number] - [id number] [place] [facility] [place] Chest DO NOT USE 01/15/2015 M654G / / [id number] [facility] 225-241 - [id number] Implanted:Q[place]: 1 on [place]2011 [place] [facility] [place] Chest [employer] 225-241 / / [id number] Sut Steel 6 M654g - [id number] Implanted:Qty: 1 on 02[place]15[place]2011 [place] [facility] [place] Chest DO NOT USE 07/21/2015 M654G / / [id number] documented as of this encounter Visit Diagnoses Diagnosis COPD, group B, by GOLD 2017 classification (HCC)- Primary Bipolar I disorder, most recent episode depressed, moderate (HCC) Bipolar I disorder, most recent episode (or current) depressed, moderate Chronic liver disease and cirrhosis (HCC) Unspecified chronic liver disease without mention of alcohol 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) Type 2 diabetes mellitus with stage 3a chronic kidney disease, with long-term current use of insulin (HCC) Suprapubic catheter (HCC) Other cystostomy status Generalized weakness Other malaise and fatigue Advanced care planning/counseling discussion Other specified counseling documented in this encounter Advance Directives Documents on File Type Date Recorded Patient Dinkey Mechanic Expl anation POLST 05/06/2018 POLST * Full [...] Name Relationship Healthcare Agent [facility] Communication Eliot Goldmangerard Adult Child Health Care Agent [phone] (Home) Care Teams Farm Equipment Engine Mechanic Relationship Specialty Start Date End Date Brina Domínguez MD [address] [place] [address] PCP - General Family Medicine 07/16/17 documented as of this encounter
--- OUTSIDE RECORDS SUMMARY | 2024-03-03 08:03 | External Medical Summary | Summary of Care ---
Author Name Unknown Organization [facility] Address [address] [place] [address] Phone [phone] Care Team Providers Care Health Management Consultant Name Role Phone Carmen Sifuentes MD Primary Care Provider [phone]- [phone] Reason for Visit * Reason Comments eRx-Medication Refill Encounter Details Date Type Department Care Team (Late st Contact Info) Description 02/08/2024 Refill [facility] [address] [place] [address] Carmen Sifuentes MD [address] [place] [address] Chronic kidney disease, stage 3a (HCC)*; Gastroesophageal reflux disease without esophagitis; Encounter for long-term (current) use of medications Allergies Active Allergy Reactions Criticality Noted Date Comments Propoxyphene Hcl Rash Low 10/29/2010 Fentanyl Diarrhea Low 04/26/2010 anxiety Methocarbamol Medium 10/05/2020 Other reaction(s): Delirium Methocarbamol Low 04/15/2007 Zolpidem Low 10/05/2020 Other reaction(s): Confusion documented as of this encounter (statuses as of 02/09/2024) Medications Medication Sig Dispensed Refills Start Date End Date Status venlafaxine XR (EFFEXOR XR) 150 MG [id number]:De pression Take 1 Cap by mouth daily. With food. 30 Cap 5 09/02/19 17 Active Additional Information Patient taking differently: 225 mgOral Daily(AM),Taking a total of 225 mg, Indications: Takes 225 mg total every morning with food (150 mg tab + 75 mg tab), Reported on 03/03/2023 Blood Glucose Monitoring Suppl ([employer] GLUCOMETER) w/Device KITIndications:Unc ontrolled type 2 diabetes mellitus without complication, without long-term current use of insulin Use as directed. Use as directed once daily 1 Kit 11/19/19 18 Active Blood Glucose Monitoring Suppl ([employer] VERIO) w/Device KIT Use as directed. Use as directed. 1 Kit 11/01/19 19 Active Spacer/Aero-Holdin g Chambers WISAM Use with inhaler. Wheezing/bronchiti s. 1 Device 04/08/20 19 Active Lancet Devices ([employer] DELICA LANCING DEV) MISC Use four times [...] 25 Tablet 5 10/16/19 24 Active Nystatin 918376 UNIT/GM External Powder (Nystop)Indication s:Candidal intertrigo Apply topically to affected area 3 times a day. Apply to right breast until rash resolved. 30 g 10/16/19 24 Active Nystatin 070441 UNIT/ML Mouth/Throat Suspension SWISH AND SWALLOW 5ML [...] 24 Active Vitamin D (Ergocalciferol) 1.25 MG (80556 UT) Oral Capsule (Drisdol)Indicatio ns:Vitamin D deficiency [...] Oral Tablet (Demadex)Indicatio ns:Atherosclerotic heart disease of [place] coronary artery with other forms of [...] evening 180 Tablet 1 02/09/20 24 Active Pantoprazole Sodium 40 MG Oral [...] classification 11/16 Overview: Per COPD GOLD Classification Allergic rhinitis 11/11/2023 Food insecurity 06/16/2023 Overview: Per [facility] Protocol Medical home patient encounter 01/06/2023 Hypertensive heart and kidne y disease with chronic diastolic congestive heart failure and stage 3a chronic kidney disease 12/28/2021 Last Assessment & Plan: Euvolemic, BP stable EF 55% 09/25 GFR 69 02/25 -Continue Torsemide 20 mg BID, Spironolactone 25 mg BID, Tropol XL 50 mg daily Coronary artery disease invo lving [place] coronary artery of [place] heart without angina pectoris 11/15/2021 Last [...] daily Trulicity 4.5mg weekly Avoid nephrotoxic drugs Urge incontinence 03/27/2021 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-contact lens inspector and ID Acute cystitis without hematuria 03/27/2021 07/08/2022 Pelvic pain 03/27/2021 02/03/2024 Type 2 diabetes mellitus wit h diabetic neuropathy 09/07/2018 11/07/2023 Overview: duplicate Mild protein-calorie malnutrition 05/07/2018 04/29/2019 Diabetes mellitus with neuropathy 05/06/2018 09/07/2018 Other cirrhosis of liver 05/06/2018 Atherosclerotic heart diseas e of [place] coronary artery with other forms of [...] stenosis 10/31/2010 08/28/2018 Acute coronary syndrome 10/30/201001/04 [employer] Other*[id number] 02/02/2010 04/18/2014 Overview: [place] [facility], Dr Joel [...] Past Smokeless Tobacco: Never Comments:Parents and then zachray altamirano smoked Alcohol Use Standard Drinks/Week Comments [...] Notes * Telephone Encounter - Marnie Hernadez RP - 02/09/2024 11:44 AM EDTSigned Prescriptions: Disp Refills Pantoprazole Sodium 40 MG Oral Tablet Judi*180 Ta*1 Sig: TAKE 1TABLET BY MOUTH TWICE DAILY every morning and every eveningAuthorizing Provider: CARMEN SIFUENTES User: MARNIE HERNADEZ * Telephone Encounter - Marnie Hernadez RPh - 02/09/2024 11:42 AM EDT Per refill protocol patient needs magnesium lab on file within the past 2 years while using PPIs. Lab work ordered. Patient may obtain with next routine labs. Marnie Hernadez, KyPh. Clinical Pharmacist [facility] [address] [place] [address], [address] [place] [address] MC: [phone] 02/09/2024,11:43 AM documented in this encounter Plan of Treatment Upcoming Encounters Date Type Department Care Team (Late st Contact Info) Description 02/23/2024 1:30 PM EDT Office Visit Urology, [facility] [address] [facility] [place] [address] Alfredo Panda MD [address] [place] [address] 02/25/2024 11:00 AM EDT Office Visit Cardiology, [facility] [address] [facility] [place] [address] Haydee Pop [facility] [address] [facility] [address] 03/02/2024 4:00 PM EDT Imaging Radiology, [address] [place] [address] 03/09/2024 2:00 PM EDT Scheduled Telephone [facility], [facility] [address] [facility] [address] Jesusita Saenz, RDN [address] [place] [facility] [place] [address] 03/22/2024 2:45 PM EDT Office Visit Urology, [facility] [address] [facility] [place] [address] Alfredo Panda MD [address] [place] [address] 06/08/2024 6:00 PM EST Office Visit [facility] [address] [place] [phone] Carmen Sifuentes MD [address] [place], [place] [id number] Scheduled Orders Name Type Priority Associated Diagnoses Orde r Schedule MAGNESIUM Lab Routine Gastroesophageal reflux disease without esophagitis Chronic kidney disease, stage 3a (HCC) Encounter for long-term (current) use of medications Expected: 02/10/2024 (Approximate), Expires: 02/08/2025 Scheduled Procedures Name Priority Associated Diagnoses Date/Ti [...] 06/10/2021, 08/29/2020, 08/01/2020 CKD PHOS USE SMARTSET 55363 10/24/202310/05, 02/18/2022, 02/17/2022, Additional history exists Influenza [...] Additional history exists CKD HGB USE SMARTSET 69904 12/10/202412/10, 08/04/2023, 08/04/2023, Additional history exists O2 [...] this encounter Medical Devices Implanted Type Area Table Tender Device Identifier Shelf Expiration Date Model / Serial / Lot Sut Steel 6 M654g - [id number] [place] [facility] [place] Chest DO NOT USE 01/15/2015 M654G / / [id number] [facility] 225-241 - [id number] Implanted:Qty: 1 on [place]2011 [place] [facility] [place] Chest [employer] 225-241 / / [id number] Sut Steel 6 M654g - [id number] Implanted:Qty: 1 on 02[place]15/2011 [place] [facility] [place] Chest DO NOT USE 07/21/2015 M654G / / [id number] documented as of this encounter Visit Diagnoses Diagnosis Chronic kidney disease, stage 3a (HCC)- Primary Gastroesophageal reflux disease without esophagitis Esophageal reflux Encounter for long-term (current) use of medications Encounter for long-term (current) use of other medications documented in this encounter Advance Directives Documents on File Type Date Recorded 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
--- OUTSIDE RECORDS SUMMARY | 2024-03-03 08:03 | External Medical Summary | Summary of Care ---
Author Name Unknown Organization [facility] Address [address] [place] [address] Phone [phone] Care Team Providers Care Cold Roll Catcher Name Role Phone Brian Domínguez MD Primary Care Provider [phone]- [phone] Reason for Visit * Reason Onset Date Comments [facility]: Maintenance 02/09/2024 Encounter Details Date Type Department Care Team (Late st Contact Info) Description 02/09/2024 Telephone [facility], [address] [address] Services, Scheduling [address] [place] [address] [facility]: Maintenance Allergies Active Allergy Reactions Criticality Noted Date Comments Propoxyphene Hcl Rash Low 10/29/2010 Fentanyl Diarrhea Low 04/26/2010 anxiety Methocarbamol Medium 10/05/2020 Other reaction(s): Delirium Methocarbamol Low 04/15/2007 Zolpidem Low 10/05/2020 Other reaction(s): Confusion documented as of this encounter (statuses as of 02/09/2024) Medications Medication Sig Dispensed Refills Start Date End Date Status venlafaxine XR (EFFEXOR XR) 150 MG [id number]:Dep ression Take 1 Cap by mouth daily. [...] Kit 11/18/2017 Active Blood Glucose Monitoring Suppl ([employer] VERIO) w/Device KIT Use as directed. Use as directed. 1 Kit 10/31/2018 Active Spacer/Aero-Holding Chambers WISAM Use with inhaler. Wheezing/bronchitis . 1 Device 04/08/2019 Active Lancet Devices (UBIKODTOUCH DELICA LANCING DEV) MISC Use four times [...] INSTRUCTIONS Please arrange for as needed Home chcf visit for obtaining straight cath urine sample [...] minutes 25 Tablet 5 10/16/2023 Active Nystatin 478627 UNIT/GM External Powder (Nystop)Indications :Candidal intertrigo Apply topically to affected area 3 times a day. Apply to right breast until rash resolved. 30 g 10/16/2023 Active Nystatin 351701 UNIT/ML Mouth/Throat Suspension SWISH AND SWALLOW 5ML IN THE MORNING AND 5ML AT NOON AND 5 ML IN THE EVENING AND 5ML BEFORE BEDTIME, FOR THRUSH 240 mL 1 10/16/2023 Active Metoprolol Succinate ER 25 MG Oral Tablet Extended Release 24 Hour (toPROL XL)Indications:HTN, goal below 130/80 TAKE 1 TABLET BY MOUTH EVERY MORNING 90 Tablet 10/25/2023 Active Vitamin D (Ergocalciferol) 1.25 MG (29115 UT) Oral Capsule (Drisdol)Indication s:Vitamin D deficiency [...] Oral Tablet (Demadex)Indication s:Atherosclerotic heart disease of [place] coronary artery with other forms of angina [...] Euvolemic today Coronary artery disease invo lving [place] coronary artery of [place] heart without angina pectoris 11/15/2021 Last Assessment [...] 02/18/2019 02:55 PM Urge incontinence 03/27/2021 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-rn gyn and ID Acute cystitis without hematuria 03/27/2021 07/08/2022 Pelvic pain 03/27/2021 02/03/2024 Type 2 diabetes mellitus wit h diabetic neuropathy 09/07/2018 11/07/2023 Overview: duplicate Mild protein-calorie malnutrition 05/07/2018 04/29/2019 Diabetes mellitus with neuropathy 05/06/2018 09/07/2018 Other cirrhosis of liver 05/06/2018 Atherosclerotic heart diseas e of [place] coronary artery with other forms of angina [...] stenosis 10/31/2010 08/28/2018 Acute coronary syndrome 10/30/201001/04 [place] [employer] Other*[id number] 02/02/2010 04/18/2014 Overview: [place] [facility], Dr Joel CASAS Obesity, morbid (more [...] encounter Miscellaneous Notes * Telephone Encounter - Radha Kim OSA - 02/09/2024 2:01 PM EDT Order for , notes, demographics and snapshot faxed to [facility] for review. DENG Segovia documented in this encounter Plan of Treatment Upcoming Encounters Date Type Department Care Team (Late st Contact Info) Description 02/23/2024 1:30 PM EDT Office Visit Urology, [facility] [address] [facility] [place] [address] Alfredo Panda MD [address] [place] [address] 02/25/2024 11:00 AM EDT Office Visit Cardiology, [facility] [address] [facility] [place] [address] Haydee Pop CRNP [address] [place] [address] 03/02/2024 4:00 PM EDT Imaging Radiology, [address] [place] [address] 03/09/2024 2:00 PM EDT Scheduled Telephone [facility], [facility] [address] [facility] [place] [address] Jesusita Saenz, RDN [address] [facility] [place] [address] 03/22/2024 2:45 PM EDT Office Visit Urology, [facility] [address] [facility] [place] [address] Alfredo Panda MD [address] [place] [address] 03/29/2024 11:00 AM EDT Home Visit [facility], [facility] [address] [place] [address] Kirby Valenzuela PA-C [address] [place] [address] 06/08/2024 6:00 PM EST Office Visit [facility] [address] [facility] [phone] Brian Domínguez MD [address] [place] [facility] [place] [address] Scheduled Procedures Name Priority Associated Diagnoses Date/Ti [...] 06/10/2021, 08/29/2020, 08/01/2020 CKD PHOS USE SMARTSET 21422 10/24/202310/05, 02/18/2022, 02/17/2022, Additional history exists Influenza Vaccine (FLU shot) (#1) 2024 06/17/2023, 03/14/2022, 03/14/2022, Additional history exists GFR 04/21/2024 10/21/2023, 07/08, 06/17/2023, Additional history exists Colonoscopy 05/20/2024 05/20/2014 Colorectal Cancer Screening 05/20/2024 HbA1c 06/11/2024 12/11/2023, 06/06, 10/23/2022, Additional history exists TSH 06/17/2024 06/17/2023, 05/08, 02/13/2023, Additional history exists Diabetic Foot Exam 10/15/2024 10/16/2023, 1 07/22/2019, 02/22/2019, Additional history exists Albumin/Creatinine Ratio 11/03/20242 024, 10/23/2022, 07/17/2022, Additional history exists CKD HGB USE SMARTSET 38751 12/10/202412/10, 08/04/2023, 08/04/2023, Additional history exists O2 [...] this encounter Medical Devices Implanted Type Area Shooter'S Helper Device Identifier Shelf Expiration Date Model / Serial / Lot Sut Steel 6 M654g - [id number] Implanted:Qty: 3 on 02[place]2011 [place] [facility] [place] Chest DO NOT USE 01/15/2015 M654G / / [id number] [facility] 225-241 - [id number] Implanted:Qty: 1 on 02/15/2011 [place] [facility] [place]: Chest [employer] 225-241 / / [id number] Sut Steel 6 M654g - [id number] Implanted:Qty: 1 on 02/15/2011 [place] [facility] [place]: Chest DO NOT USE 07/21/2015 M654G / / [id number] documented as of this encounter Advance Directives Documents on File Type Date Recorded 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
--- OUTSIDE RECORDS SUMMARY | 2024-03-03 08:04 | External Medical Summary | Summary of Care ---
Author Name Unknown Organization [facility] Address [address] [place] [address] Phone [phone] Care Team Providers Care Wire Rope Sales Representative Name Role Phone Brian Domínguez MD Primary Care Provider [phone] Reason for Visit * Reason Onset Date Comments Post-Op 01/21/2024 Encounter Details Date Type Department Care Team (Late st Contact Info) Description 01/21/2024 Telephone Urology, [facility] [address] [facility] [place] [id number] Alfredo Panda MD [address] [place] [address] Post-Op Allergies Active Allergy Reactions Criticality Noted Date Comments Propoxyphene Hcl Rash Low 10/29/2010 Fentanyl Diarrhea Low 04/26/2010 anxiety Methocarbamol Medium 10/05/2020 Other reaction(s): Delirium Methocarbamol Low 04/15/2007 Zolpidem Low 10/05/2020 Other reaction(s): Confusion documented as of this encounter (statuses as of 01/29/2024) Medications Medication Sig Dispensed Refills Start Date End Date Status venlafaxine XR (EFFEXOR XR) 150 MG [id number]:De pression Take 1 Cap by mouth daily. [...] 11/19/19 18 Active Blood Glucose Monitoring Suppl (Fixetude VERIO) w/Device KIT Use as directed. Use as directed. 1 Kit 11/01/19 19 Active Spacer/Aero-Holdin g Chambers WISAM Use with inhaler. Wheezing/bronchit is. 1 Device 04/08/20 19 Active Lancet Devices (ZipListTOUCH DELICA LANCING DEV) MISC Use four times [...] bedtime 180 Tablet 3 08/13/19 24 Active Pantoprazole Sodium 40 MG Oral Tablet Delayed Release (Protonix)Indicati ons:Gastroesophage al reflux disease without esophagitis TAKE 1 TABLET BY MOUTH TWICE DAILY every morning and every evening 180 Tablet 1 08/14/19 24 Active Estradiol 0.1 MG/GM Vaginal Cream (Estrace) Apply pea sized amount (0.5 gm) vaginally every other night 42.5 g 3 08/20/19 24 Active Additional Information Patient not taking.Reported on 01/20/2024 Levothyroxine Sodium 88 MCG Oral Tablet (Levoxyl)Cucao ns:Hypothyroidism TAKE 1 TABLET BY MOUTH ONCE DAILY AT LEAST 30 MINUTES BEFORE BREAKFAST AND OTHER MEDICATIONS 90 Tablet 1 09/08/19 24 Active PEG 3350 17 GM/SCOOP Oral Powder DISSOLVE ONE HEAPING TABLESPOON IN 8 OZ OF WATER OR JUICE DAILY NEEDED FOR CONSTIPATION. 510 g 5 09/22/19 24 Active Spironolactone 50 MG Oral Tablet (Aldactone)Indicat ions:GONZALZE (nonalcoholic steatohepatitis),P ortal hypertension (HCC),Chronic liver disease [...] 25 Tablet 5 10/16/19 24 Active Nystatin 759551 UNIT/GM External Powder (Nystop)Indication s:Candidal intertrigo Apply topically to affected area 3 times a day. Apply to right breast until rash resolved. 30 g 10/16/19 24 Active Nystatin 898859 UNIT/ML Mouth/Throat Suspension SWISH AND SWALLOW 5ML [...] 24 Active Vitamin D (Ergocalciferol) 1.25 MG (95370 UT) Oral Capsule (Drisdol)Alem ns:Vitamin D deficiency TAKE 1 CAPSULE BY [...] before bedtime. 30 Capsule 11/26/19 24 Active oxyBUTYnin Chloride ER 10 MG Oral [...] before bedtime. 10 Capsule 01/01/20 24 Active Ozempic (2 MG/DOSE) 8 MG/3ML Subcutaneous Solution Pen-injector (Semaglutide (2 MG/DOSE))Indicatio ns:Type 2 diabetes mellitus with diabetic neuropathy, with long-term current use of insulin (HCC) Inject 2 mg subcutaneous once per week 3 mL 5 01/01/20 24 Active Torsemide 20 MG Oral Tablet (Demadex)Indicatio ns:Atherosclerotic heart disease of [place] coronary artery [...] TIMES DAILY 90 Tablet 01/14/20 24 Active Ondansetron HCl 8 MG Oral Tablet (Zofran)Indication s:Nausea TAKE 1 TABLET BY MOUTH EVERY 8 HOURS NEEDED FOR NAUSEA 60 Tablet 5 12/10/19 23 024 Discontinued(Re fill) Xifaxan 550 MG Oral Tablet (rifAXIMin)Indicat ions:GONZALEZ (nonalcoholic steatohepatitis),C hronic liver disease and cirrhosis (HCC),Hepatic encephalopathy (HCC) TAKE 1 TABLET BY MOUTH TWICE DAILY 60 Tablet 5 07/16/19 24 024 Discontinued documented as of this encounter (statuses as of 01/29/2024) Active Problems Problem Noted Date Diagnosed Date [...] mg daily Coronary artery disease invo lving [place] coronary artery of [place] heart without angina pectoris 11/15/2021 Last Assessment & Plan: Stable. No angina -continue toprol, ASA and statin Seasonal allergies 11/15/2021 Recurrent UTI 10/07/2021 Last Assessment & Plan: Followed by urology Pt is supposed to be on methenamine--will need to clarify with dgt that she is giving this. 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-material preparation worker and ID Type 2 diabetes mellitus [...] 01/16/22 Moderate aortic stenosis 05/06/2018 Anxiety 08/05/2017 Qegdayr-Sflpl-Sytky disease 06/27/2015 Last Assessment & Plan: Frequent [...] as of this encounter (statuses as of 01/29/2024) Resolved Problems Problem Noted Date Diagnosed Date [...] prn Acute cystitis without hematuria 03/27/2021 07/08/2022 Type 2 diabetes mellitus wit h diabetic [...] stenosis 10/31/2010 08/28/2018 Acute coronary syndrome 10/30/201001/04 [facility] [employer] Other*[id number] 02/02/2010 04/18/2014 Overview: [facility], Dr Joel Kwon PI Obesity, morbid [...] as of this encounter (statuses as of 01/29/2024) Immunizations Name Administration Dates Next Due COVID-19 [...] Telephone Encounter - Fani Starr LPN - 01/29/2024 10:35 AM EDT Patient called into the office with concerns of pain, upset stomach, and discharge. Patient notes she is having pain rated 8/10 , patient is taking Tylenol. Patient states she has no had a fever. Patients daughter in background of phone call states she is having discharge from her urethra that is foul, fishy, yeasty smelling. Patient states she spoke with Dr Panda last evening and was told it was the normal healing process. Sending as FYI, or further recommendations. * Telephone Encounter - Erinn Wright OSA - 01/28/2024 5:25 PM EDT Pt. Having pain and discharge from surgery site, for past two days. She is concerned and would like to speak with Dr. Panda or his nurse * Telephone Encounter - Alfredo Panda MD - 01/21/2024 11:41 AM EDT Addressed in separate encounter. * Telephone Encounter - Fani Starr LPN - 01/21/2024 10:03 AM EDT Patient called with concerned post surgery 12/24/23. She notes the sensation of constantly have to urinate, pain, and green discharge at the SPT opening has green discharge. Daughter is with patient and states she does not feel it looks different than it did in the office, patient voiced otherwise. Daughter was given the phone and described the patients discharge as same as in office with Dr Panda. She denied /fv/d/chills, but is nauseated. Patient and daughter want to confirm again this is notinfection. She will forward images through MyG to provider for review. documented in this encounter Plan of Treatment Upcoming Encounters Date Type Department Care Team (Late st Contact Info) Description 02/02/2024 1:00 PM EDT Office Visit Urology, [facility] [address] [facility] [place] [address] Alfredo Panda MD [address] [place] [address] 02/05/2024 9:30 AM EDT Scheduled Telephone [facility], [facility] [address] [facility] [address] Jesusita Saenz RDN [address] [facility] [place] [address] 02/09/2024 9:00 AM EDT Home Visit [facility], [facility] [address] [facility] [place] [address] Kirby Valenzuela PA-C 132 [facility] [place] [address] 02/25/2024 11:00 AM EDT Office Visit Cardiology, [facility] [address] [facility] [place] [address] Haydee Pop CRNP 132 [facility] [place] [address] 03/02/2024 4:00 PM EDT Imaging Radiology, [place] [id number] [place] [address] 06/08/2024 6:00 PM EST Office Visit [facility] [address] [place] [id number] Brian Domínguez MD [address] [place] [address] Scheduled Procedures Name Priority Associated Diagnoses Date/Ti [...] 06/10/2021, 08/29/2020, 08/01/2020 CKD PHOS USE SMARTSET 90864 10/24/202310/05, 02/18/2022, 02/17/2022, Additional history exists *COPD SEVERITY VERIFIED BY PFT 01/18/2024 *CXR OR CT FOR COPD EVER 01/18/2024 Influenza Vaccine (FLU shot) (#1) 2024 06/17/2023, [...] Additional history exists CKD HGB USE SMARTSET 55234 12/10/202412/10, 08/04/2023, 08/04/2023, Additional history exists O2 [...] this encounter Medical Devices Implanted Type Area Cane Cutter Device Identifier Shelf Expiration Date Model / Serial / Lot Sut Steel 6 M654g - [id number] Implanted:Qty: 3 on 02/15/2011 at OR [facility] [place] N/A: Chest DO NOT USE 01/15/2015 M654G / / [id number] [facility] 225-241 - [id number] Implanted:Qty: 1 on 02/15/2011 at OR [facility] [place] N/A: Chest [employer] 225-241 / / [id number] Sut Steel 6 M654g - [id number] Implanted:Qty: 1 on 02/15/2011 at OR [facility] [place] N/A: Chest DO NOT USE 07/21/2015 M654G / / [id number] documented as of this encounter Advance Directives Documents on File Type Date Recorded 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
--- OUTSIDE RECORDS SUMMARY | 2024-03-03 08:04 | External Medical Summary | Summary of Care ---
Author Name Unknown Organization [facility] Address [address] [place] [address] Phone [phone] Care Team Providers Care Beaming Machine Operator Name Role Phone Brian Domínguez MD Primary Care Provider [phone]- [phone] Reason for Visit * Reason Onset Date Comments Medical Nutrition Therapy 02/05/2024 Encounter Details Date Type Department Care Team (Latest Contact Info) Description 02/05/2024 9:30 AM EDT Scheduled Telephone [facility], [facility] [address] [facility] [place] [address] Jesusita Saenz, RDN [address] [facility] [address] Type 2 diabetes mellitus with stage 3a chronic kidney disease, with long-term current use of insulin ([facility])* Allergies Active Allergy Reactions Criticality Noted Date Comments Propoxyphene Hcl Rash Low 10/29/2010 Fentanyl Diarrhea Low 04/26/2010 anxiety Methocarbamol Medium 10/05/2020 Other reaction(s): Delirium Methocarbamol Low 04/15/2007 Zolpidem Low 10/05/2020 Other reaction(s): Confusion documented as of this encounter (statuses as of 02/05/2024) Medications Medication Sig Dispensed Refills Start Date End Date Status venlafaxine XR (EFFEXOR XR) 150 MG [id number]:Dep ression Take 1 Cap by mouth daily. [...] Kit 11/18/2017 Active Blood Glucose Monitoring Suppl ([employer] VERIO) w/Device KIT Use as directed. Use as directed. 1 Kit 10/31/2018 Active Spacer/Aero-Holding Chambers WISAM Use with inhaler. Wheezing/bronchitis . 1 Device 04/08/2019 Active Lancet Devices ([employer] DELICA LANCING DEV) MISC Use four times [...] INSTRUCTIONS Please arrange for as needed Home longterm visit for obtaining straight cath urine sample [...] before bedtime 180 Tablet 3 08/13/2023 Active Pantoprazole Sodium 40 MG Oral Tablet Delayed Release (Protonix)Indicatio ns:Gastroesophageal reflux disease without esophagitis TAKE 1 TABLET BY MOUTH TWICE DAILY every morning and every evening 180 Tablet 1 08/14/2023 Active Estradiol 0.1 MG/GM Vaginal Cream (Estrace) [...] minutes 25 Tablet 5 10/16/2023 Active Nystatin 944936 UNIT/GM External Powder (Nystop)Indications :Candidal intertrigo Apply topically to affected area 3 times a day. Apply to right breast until rash resolved. 30 g 10/16/2023 Active Nystatin 719938 UNIT/ML Mouth/Throat Suspension SWISH AND SWALLOW 5ML IN THE MORNING AND 5ML AT NOON AND 5 ML IN THE EVENING AND 5ML BEFORE BEDTIME, FOR THRUSH 240 mL 1 10/16/2023 Active Metoprolol Succinate ER 25 MG Oral Tablet Extended Release 24 Hour (toPROL XL)Indications:HTN, goal below 130/80 TAKE 1 TABLET BY MOUTH EVERY MORNING 90 Tablet 10/25/2023 Active Vitamin D (Ergocalciferol) 1.25 MG (23141 UT) Oral Capsule (Drisdol)Indication s:Vitamin D deficiency [...] Oral Tablet (Demadex)Indication s:Atherosclerotic heart disease of [place] coronary [...] FOR NAUSEA 60 Tablet 5 01/28/2024 Active documented as of this encounter (statuses as of 02/05/2024) Active Problems Problem Noted Date Diagnosed Date [...] weekly Avoid nephrotoxic drugs Urge incontinence 03/27/2021 correction (current) use of insulin 09/29/2019 Diabetic gastroparesis [...] 01/16/22 Moderate aortic stenosis 05/06/2018 Anxiety 08/05/2017 Cgowxra-Dikif-Preof disease 06/27/2015 Last Assessment & Plan: Frequent [...] as of this encounter (statuses as of 02/05/2024) Resolved Problems Problem Noted Date Diagnosed Date [...] is giving this. 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-cafeteria aide and ID Acute cystitis without hematuria [...] stenosis 10/31/2010 08/28/2018 Acute coronary syndrome 10/30/201001/04 [facility] [employer] Other*[id number] 02/02/2010 04/18/2014 Overview: [place] [facility], Dr Joel Kwon PI Obesity, morbid [...] thrombosis 06/17/2006 01/21/2014 correction current use of ant icoagulant therapy 06/17/2006 [...] as of this encounter (statuses as of 02/05/2024) Immunizations Name Administration Dates Next Due COVID-19 [...] encounter Miscellaneous Notes * Telephone Encounter - Jesusita Saenz RDN - 02/05/2024 10:16 AM EDT NUTRITION CONSULT - OUTPATIENT [facility] Name: Angelina Ballard [facility] Date: 02/05/2024 Time: 10:17 AM This dietitian unable to complete Nutrition Referral/Consult as scheduled this date due to Patient declining call ("I don't feel the best today; another day please"). This dietitian briefly discussed dietitian's role in the [facility], and purpose of call, but the call was still declined and Patient requested to be rescheduled. Will reschedule Patient for the near future. Reason for Referral: Overweight/Obesity, Type 2 Diabetes, Heart Health Jesusita Saenz RDN [facility] documented in this encounter Plan of Treatment Upcoming Encounters Date Type Department Care Team (Late st Contact Info) Description 02/09/2024 9:00 AM EDT Home Visit [facility] [address] [place] [address] Kirby Valenzuela PA-C [address] [place] [address] 02/23/2024 1:30 PM EDT Office Visit Urology, [facility] [address] [place] [address] Alfredo Panda MD [address] [place] [address] 02/25/2024 11:00 AM EDT Office Visit Cardiology, [facility] 132 [facility] [place] [address] Haydee Pop CRNP 132 [facility] [place] [address] 03/02/2024 4:00 PM EDT Imaging Radiology, [place] [address] [place] [address] 03/09/2024 2:00 PM EDT Scheduled Telephone [facility], [facility] [address] [facility] [place] [address] Jesusita Saenz, RDN [address] [facility] [place] [address] 03/22/2024 2:45 PM EDT Office Visit Urology, [facility] [address] [facility] [place] [address] Alfredo Panda MD [address] [place] [address] 06/08/2024 6:00 PM EST Office Visit [facility] [address] [place] [phone] Brian Domínguez MD [address] [place] [address] Scheduled Procedures Name Priority Associated Diagnoses Date/Ti [...] 06/10/2021, 08/29/2020, 08/01/2020 CKD PHOS USE SMARTSET 89565 10/24/202310/05, 02/18/2022, 02/17/2022, Additional history exists Influenza [...] Additional history exists CKD HGB USE SMARTSET 67331 12/10/202412/10, 08/04/2023, 08/04/2023, Additional history exists O2 [...] this encounter Medical Devices Implanted Type Area Welding Engineer Device Identifier Shelf Expiration Date Model / Serial / Lot Sut Steel 6 M654g - [id number] Implanted:Qty: 3 on 02/15/2011 at [place] [facility] [place] N/A: Chest DO NOT USE 01/15/2015 M654G / / [id number] [employer] 225-241 - [id number] Implanted:Qty: 1 on 02/15/2011 at [place] [facility] [place] N/A: Chest [employer] 225-241 / / [id number] Sut Steel 6 M654g - [id number] Implanted:Qty: 1 on 02/15/2011 at [place] [facility] [place] N/A: Chest DO NOT USE 07/21/2015 M654G / / [id number] documented as of this encounter Visit Diagnoses Diagnosis Type 2 diabetes mellitus with stage 3a chronic kidney disease, with long-term current use of insulin (HCC)- Primary documented in this encounter Advance Directives Documents on File Type Date Recorded Patient 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
--- OUTSIDE RECORDS SUMMARY | 2024-03-03 08:04 | External Medical Summary | Summary of Care ---
Author Name Unknown Organization [facility] Address [address] [place] [address] Phone [phone] Care Team Providers Care Sail Repair Person Name Role Phone Carmen Sifuentes MD Primary Care Provider [phone]- [phone] Reason for Visit * Reason Comments Cystoscopy Encounter Details Date Type Department Care Team (Late st Contact Info) Description 02/02/2024 1:00 PM EDT Office Visit Urology, [facility] [address] [facility] [place] [address] Alfredo Panda MD [address] [facility] [place] [address] Urge incontinence*; Pelvic pain; Recurrent UTI; Acute cystitis without hematuria; Suprapubic catheter (HCC) Allergies Active Allergy Reactions Criticality Noted Date Comments Propoxyphene Hcl Rash Low 10/29/2010 Fentanyl Diarrhea Low 04/26/2010 anxiety Methocarbamol Medium 10/05/2020 Other reaction(s): Delirium Methocarbamol Low 04/15/2007 Zolpidem Low 10/05/2020 Other reaction(s): Confusion documented as of this encounter (statuses as of 02/02/2024) Medications Medication Sig Dispensed Refills Start Date End Date Status venlafaxine XR (EFFEXOR XR) 150 MG [id number]:Dep ression Take 1 Cap by mouth daily. With food. 30 Cap 5 09/02/2016 Active Additional Information Patient taking differently: 225 mgOral Daily(AM),Taking a total of 225 mg, Indications: Takes 225 mg total every morning with food (150 mg tab + 75 mg tab), Reported on 03/03/2023 Blood Glucose Monitoring Suppl ([email or web address] GLUCOMETER) w/Device KITIndications:Unco ntrolled type 2 diabetes mellitus without complication, without long-term current use of insulin Use as directed. Use as directed once daily 1 Kit 11/18/2017 Active Blood Glucose Monitoring Suppl ([employer] VERIO) w/Device KIT Use as directed. Use as directed. 1 Kit 10/31/2018 Active Spacer/Aero-Holding Chambers WISAM Use with inhaler. Wheezing/bronchitis . 1 Device 04/08/2019 Active Lancet Devices ([employer] DELICA LANCING DEV) MISC Use four times [...] INSTRUCTIONS Please arrange for as needed Home senior care visit for obtaining straight cath urine sample [...] minutes 25 Tablet 5 10/16/2023 Active Nystatin 874251 UNIT/GM External Powder (Nystop)Indications :Candidal intertrigo Apply topically to affected area 3 times a day. Apply to right breast until rash resolved. 30 g 10/16/2023 Active Nystatin 968979 UNIT/ML Mouth/Throat Suspension SWISH AND SWALLOW 5ML IN THE MORNING AND 5ML AT NOON AND 5 ML IN THE EVENING AND 5ML BEFORE BEDTIME, FOR THRUSH 240 mL 1 10/16/2023 Active Metoprolol Succinate ER 25 MG Oral Tablet Extended Release 24 Hour (toPROL XL)Indications:HTN, goal below 130/80 TAKE 1 TABLET BY MOUTH EVERY MORNING 90 Tablet 10/25/2023 Active Vitamin D (Ergocalciferol) 1.25 MG (17378 UT) Oral Capsule (Drisdol)Indication s:Vitamin D deficiency [...] Tablet (Demadex)Indication s:Atherosclerotic heart disease of [place] coronary artery with other forms of angina [...] as of this encounter (statuses as of 02/02/2024) Active Problems Problem Noted Date Diagnosed Date [...] mg daily Coronary artery disease invo lving [place] coronary artery of [place] heart without angina pectoris 11/15/2021 Last Assessment & Plan: Stable. No angina -continue toprol, ASA and statin Seasonal allergies 11/15/2021 Recurrent UTI 10/07/2021 Last Assessment & Plan: Followed by urology Pt is supposed to be on methenamine--will need to clarify with dgt that she is giving this. 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-rail car maintenance mechanic and ID Type 2 diabetes mellitus [...] drugs Pelvic pain 03/27/2021 Urge incontinence 03/27/2021 detention (current) use of insulin 09/29/2019 Diabetic gastroparesis [...] 01/16/22 Moderate aortic stenosis 05/06/2018 Anxiety 08/05/2017 Emvtnvl-Nisek-Plomj disease 06/27/2015 Last Assessment & Plan: Frequent [...] as of this encounter (statuses as of 02/02/2024) Resolved Problems Problem Noted Date Diagnosed Date [...] 05/06/2018 Atherosclerotic heart diseas e of [place] coronary artery with other forms of angina [...] stenosis 10/31/2010 08/28/2018 Acute coronary syndrome 10/30/201001/04 [place] Research Other*[id number] 02/02/2010 04/18/2014 Overview: [place] Registry, Dr Althea Kwon PI Obesity, morbid [...] thrombosis 06/17/2006 01/21/2014 detention current use of ant icoagulant therapy 06/17/2006 [...] as of this encounter (statuses as of 02/02/2024) Immunizations Name Administration Dates Next Due COVID-19 [...] Progress Notes * Alfredo Panda MD - 02/02/2024 1:27 PM EDT [id number] PCP: [place] [address] Angelina Ballard is a 73 year old female, who presents for SPT exchange. Patient's questions and concerns due to SPT site is noted. Patient is here today with her daughter who cares for her. Urinary Incontinence: Patient is being seen for [...] Current Outpatient Medications Medication Sig Dispense Refill oxyBUTYnin Chloride ER 10 MG Oral Tablet Extended Release 24 Hour (Ditropan XL) TAKE 1 TABLET BY MOUTH EVERY MORNING 90 Tablet 3 oxyCODONE-Acetaminophen 5-325 MG Oral Tablet (Percocet) Take 1 Tablet by mouth every 8 hours as needed for Pain, Severe. 8 Tablet 0 Tamsulosin HCl 0.4 MG Oral Capsule (Flomax) TAKE 1 CAPSULE BY MOUTH EVERY MORNING 90 Capsule 0 venlafaxine XR (EFFEXOR XR) 150 MG CP24 Take 1 Cap by mouth daily. With food. (Patient taking differently: Take 225 mg by mouth in the morning. Taking a total of 225 mg.) 30 Cap 5 Blood Glucose Monitoring Suppl ([employer]ARE GLUCOMETER) w/Device KIT Use as directed. Use as directed once daily 1 Kit 0 Blood Glucose Monitoring Suppl ([employer]pping VERIO) w/Device KIT Use as directed. Use as directed. 1 Kit 0 Spacer/Aero-Holding Chambers WISAM Use with inhaler. Wheezing/bronchitis. 1 Device 0 Lancet Devices (Weeding TechnologiesUCH DELICA LANCING DEV) MISC Use four times [...] INSTRUCTIONS Please arrange for as needed Home senior care visit for obtaining straightcath urine sample for [...] in 15 minutes 25 Tablet 5 Nystatin 905475 UNIT/GM External Powder (Nystop) Apply topically to affected area 3 times a day. Apply to right breast until rash resolved. 30 g 0 Nystatin 097698 UNIT/ML Mouth/Throat Suspension SWISH AND SWALLOW 5ML IN THE MORNING AND 5ML AT NOON AND 5 ML IN THE EVENING AND 5ML BEFORE BEDTIME, FOR THRUSH 240 mL 1 Metoprolol Succinate ER 25 MG Oral Tablet Extended Release 24 Hour (toPROL XL) TAKE 1 TABLET BY MOUTH EVERY MORNING 90 Tablet 0 Vitamin D (Ergocalciferol) 1.25 MG (22603 UT) Oral Capsule (Drisdol) TAKE 1 CAPSULE BY MOUTH ONCE WEEKLY 12 Capsule 3 Insulin Glargine Solostar 100 UNIT/ML Subcutaneous Solution Pen-injector (Lantus SoloStar) Inject 35 units subcutaneously twice per day 30 mL 11 ARIPiprazole 5 MG Oral Tablet (Abilify) Take 1 Tablet by mouth in the morning. Excedrin Migraine 250-250-65 MG Oral Tablet (Nhmpfkw-Czlcdcnaroeze-Nbrfkrlc 250-250-65 mg per tab) Take 1 Tablet [...] taking: Reported on 02/02/2024) 30 Capsule 0 Montelukast Sodium 10 MG Oral Tablet (Singulair) [...] use twice a day 200 Each 2 Cefdinir 300 MG Oral Capsule (Omnicef) Take [...] MOUTH THREE TIMES DAILY 90 Tablet 0 Xifaxan 550 MG Oral Tablet (rifAXIMin) take 1 tablet by mouth twice daily 60 Tablet 5 Ondansetron HCl 8 MG Oral Tablet (Zofran) TAKE 1 TABLET BY MOUTH EVERY 8 HOURS NEEDED FOR [id number] Tablet 5 No current facility-administered medications for this visit. [...] Laterality Date ANESTHESIA, HEART CATHETERIZATION 06/04/12 at [facility] ARTHROPLASTY KNEE TOTAL right CABG, ARTERIAL, SINGLE 02/15/2011 CORONARY ARTERY BYPASS GRAFT USING ARTERY 1 GRAFT performed by TIERNEY GUERRERO at [facility] CATHETERIZE LEFT HEART THRU SKIN 04/11/2009 LEFT HEART CATH, PERCUTANEOUS performed by GINGER FISHER at [facility] CATHETERIZE LEFT HEART THRU SKIN 02/01/2010 LEFT HEART CATH, PERCUTANEOUS performed by ALTHEA KWON at [facility] CATHETERIZE LEFT HEART THRU SKIN 04/03/2010 LEFT HEART CATH, PERCUTANEOUS performed by GARCIA SOSA at [facility] COLONOSCOPY, DIAGNOSTIC (RECTUM) 05/20/2014 normal, repeat 10 yrs/done @ [facility] CORONARY ANGIOGRAPHY W/LEFT HEART CATH 10/29/2010 CORONARY ANGIOGRAPHY W/LEFT HEART CATH performed by ANNIE SEVILLA at [facility] EGD, FLEXIBLE, DIAGNOSTIC 12/05/2017 portal hypertensive gastropathy/[facility] EGD, FLEXIBLE, DIAGNOSTIC 10/25/2022 retained food / ESOPHAGOGASTRODUODENOSCOPY (EGD), FLEXIBLE, TRANSORAL, DIAGNOSTIC performed by Raghavendra Medrano MD at [facility] EGD, W/ENDOSCOPIC US 06/26/2011 UPPER GI ENDOSCOPY ENDOSCOPIC ULTRASOUND performed by RACHEL BAHENA at [facility]OSCOPY [facility] INFORMATION L hip surgery. OTHER nerve biopsy right calf REMOVAL OF APPENDIX REMOVE ADDED SPINE LAMINA, 1 SEG 07/2007 Dr. Saleem L4-L5 REMOVE GALLBLADDER SURGICAL DRAINAGE OF BLADDER N/A 12/31/2023 CYSTOSTOMY WITH DRAINAGE OF BLADDER performed by Alfredo Panda MD at OR [facility] TOTAL ABD HYSTERECTOMY W/WO REMOVAL OF [...] Cooper Phlebitis and thrombophlebitis Seasonal allergies 11/15/2021 Patient Active Problem List Diagnosis PERONEAL MUSCLE ATROPHY Gastroesophageal reflux disease without esophagitis S/P angioplasty with stent Dyslipidemia, goal LDL below 70 Hypothyroidism GONZALEZ (nonalcoholic steatohepatitis) Bipolar I disorder, most recent episode depressed, moderate (HCC) HTN, goal below 130/80 MEDICATION USE AGREEMENT Pycvjqr-Bmwiy-Vmxzi disease Anxiety Hypertensive heart disease with chronic diastolic congestive heart failure (HCC) Fatty liver Chronic liver disease and cirrhosis (HCC) Portal hypertensive gastropathy (HCC) Moderate aortic stenosis Diabetic gastroparesis (HCC) detention (current) use of insulin (HCC) Pelvic pain Urge incontinence Type 2 diabetes mellitus with diabetic neuropathy, with long-term current use of insulin (HCC) Type 2 diabetes mellitus with stage 3a chronic kidney disease, with long-term current use of insulin (HCC) Recurrent UTI Coronary artery disease involving [place] coronary artery of [place] heart without angina pectoris Seasonal allergies 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 10 mL of sterile water placed within the balloon. No encrustation or significant debris appreciated. Cystoscopy Procedure Note: Patient was properly identified and appropriate consent was confirmed. Risks and benefits of the procedure were reviewed and the patient was prepped and draped in the standard fashion for the procedure. A well lubricated 16 Mohawk flexible cystoscope was introduced through the meatus into the urethra. Urethra demonstrated involution . Bladder neck was visualized and bladder was entered. Sterile saline irrigation was used to distend the bladder which was noted to have appropriate inflammation considering indwelling suprapubic tube, SP tube in good location with a fully inflated balloon and no significant debris. A patulous anatomy was appreciated. Bladder was completely inspected including re troflexion of the scope. Ureteral orifices were noted to be in the normal anatomic position bilaterally. After this was completed the cystoscope was removed. Patient tolerated the procedure well without complications or difficulties. Certified Ski Patroller was present for entire procedure. Impression/Plan: 73-year-old female with a history of recurrent UTIs, urge incontinence, improved with suprapubic tube. Findings reviewed with the patient and daughter. Expected healing is noted. Wound Care is also reviewed. Will provide some Xeroform gauze to see if this helps with Wound Care. Otherwise, will see back in a month for next scheduled exchange. Patient vocalizes good understanding of the treatment plan. Alfredo Panda MD 1:27 PM 02/02/2024 documented in this encounter Nursing Notes * Hue Coates LPN - 02/02/2024 1:06 PM EDT SPT change, cystoscopy. Consent signed. Patient's skin was prepped with hibiclens, and 2% lidocaine jelly was inserted into urethra for cystoscopy. Patient tolerated well. documented in this encounter Plan of Treatment Upcoming Encounters Date Type Department Care Team (Late st Contact Info) Description 02/05/2024 9:30 AM EDT Scheduled Telephone [facility], [facility] [address] [facility] [place] [address] Jesusita Saenz RDN [address] [facility] [place] [address] 02/09/2024 9:00 AM EDT [facility] Visit [facility], [facility] [address] [place] [address] Kirby Valenzuela PA-C [address] [place] [address] 02/23/2024 1:30 PM EDT Office Visit Urology, [facility] [address] [facility] [place] [address] Alfredo Panda MD [address] [place] [address] 02/25/2024 11:00 AM EDT Office Visit Cardiology, [facility] [address] [facility] [place] [address] Haydee Pop CRNP [address] [facility] [place] [address] 03/02/2024 4:00 PM EDT [address] [address] 03/22/2024 2:45 PM EDT Office Visit Urology, [facility] [address] [facility] [place] [address] Alfredo Panda MD [address] [place] [address] 06/08/2024 6:00 PM EST Office Visit [address] [phone] Carmen Sifuentes MD [address] [place] [address] Scheduled Orders Name Type Priority Associated Diagnoses Orde r Schedule CYSTOSCOPY Procedures Routine Urge incontinence Recurrent UTI Ordered: 02/02/2024 SUPRAPUBIC CHANGE/COMPLEX/NURSE Procedures Routine Urge incontinence Recurrent UTI Ordered: 02/02/2024 Scheduled Procedures Name Priority Associated Diagnoses Date/Ti [...] 06/10/2021, 08/29/2020, 08/01/2020 CKD PHOS USE SMARTSET 51592 10/24/202310/05, 02/18/2022, 02/17/2022, Additional history exists *COPD [...] Additional history exists CKD HGB USE SMARTSET 67421 12/10/202412/10, 08/04/2023, 08/04/2023, Additional history exists O2 [...] this encounter Medical Devices Implanted Type Area Book Shelver Device Identifier Shelf Expiration Date Model / Serial / Lot Sut Steel 6 M654g - [id number] Implanted:Qty: 3 on 02/15/2011 at OR [facility] N/A: Chest DO NOT USE 01/15/2015 M654G / / [id number] Band Magdy 225-241 - [id number] Implanted:Qty: 1 on 02/15/2011 at OR [facility] N/A: Chest [employer] 225-241 / / [id number] Sut Steel 6 M654g - [id number] Implanted:Qty: 1 on 02/15/2011 at OR [facility] N/A: Chest DO NOT USE 07/21/2015 M654G / / [id number] documented as of this encounter Visit Diagnoses Diagnosis Urge incontinence- Primary Pelvic pain Recurrent UTI Urinary tract infection, site not specified Acute cystitis without hematuria Acute cystitis Suprapubic catheter (HCC) Other cystostomy status documented in this encounter Advance Directives Documents on File Type Date Recorded Patient Councilperson Jose GARZON 05/06/2018 POLST * Full Code (Latest Code [...] Agents on File Name Relationship Healthcare Agent [facility] Communication Carolyn Ballard Adult Child Health Care Agent Care Teams Sail Repair Person Relationship Specialty Start Date End Date Carmen Sifuentes MD [address] [place] [address] PCP - General Family Medicine 07/16/17 documented as of this encounter
--- OUTSIDE RECORDS SUMMARY | 2024-03-03 08:04 | External Medical Summary | Summary of Care ---
Author Name Unknown Organization [facility] Address [address] [place] [address] Phone [phone] Care Team Providers Care Environmental Health Physician Name Role Phone Brian Domínguez MD Primary Care Provider [phone]- [phone] Reason for Visit * Reason Onset Date Comments Post-Op 01/21/2024 Encounter Details Date Type Department Care Team (Late st Contact Info) Description 01/21/2024 Telephone Urology, [facility] [address] [facility] [place] [id number] Alfredo Panda MD [address] [place] [...] Status venlafaxine XR (EFFEXOR XR) 150 MG [id number]:De pression Take 1 Cap by mouth daily. [...] 11/19/19 18 Active Blood Glucose Monitoring Suppl ([employer] VERIO) w/Device KIT Use as directed. Use as directed. 1 Kit 11/01/19 19 Active Spacer/Aero-Holdin g Chambers WISAM Use with inhaler. Wheezing/bronchit is. 1 Device 04/08/20 19 Active Lancet Devices (Grand Circus[employer]OUCH DELICA LANCING DEV) MISC Use four times [...] 25 Tablet 5 10/16/19 24 Active Nystatin 136331 UNIT/GM External Powder (Nystop)Indication s:Candidal intertrigo Apply topically to affected area 3 times a day. Apply to right breast until rash resolved. 30 g 10/16/19 24 Active Nystatin 483347 UNIT/ML Mouth/Throat Suspension SWISH AND SWALLOW 5ML [...] 24 Active Vitamin D (Ergocalciferol) 1.25 MG (58521 UT) Oral Capsule (Drisdol)Alem ns:Vitamin D deficiency [...] Oral Tablet (Demadex)Indicatio ns:Atherosclerotic heart disease of [place] coronary artery with other forms of angina [...] mg daily Coronary artery disease invo lving [place] coronary artery of [place] heart without angina pectoris 11/15/2021 Last Assessment & Plan: Stable. No angina -continue toprol, ASA and statin Seasonal allergies 11/15/2021 Recurrent UTI 10/07/2021 Last Assessment & Plan: Followed by urology Pt is supposed to be on methenamine--will need to clarify with dgt that she is giving this. 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-instrument room technician and ID Type 2 diabetes mellitus [...] 01/16/22 Moderate aortic stenosis 05/06/2018 Anxiety 08/05/2017 Uhmzvip-Gklkf-Cswqe disease 06/27/2015 Last Assessment & Plan: Frequent [...] liver 05/06/2018 Atherosclerotic heart diseas e of [place] coronary artery with other forms of angina [...] stenosis 10/31/2010 08/28/2018 Acute coronary syndrome 10/30/201001/04 [place] Research Other*[id number] 02/02/2010 04/18/2014 Overview: [place] Registry, Dr Joel Kwon PI Obesity, morbid [...] Miscellaneous Notes * Telephone Encounter - Alfredo Panda MD - 01/29/2024 1:28 PM EDT Yes, spoke to patient yesterday. Will see Friday at the time of her suprapubic tube exchange. SP tube care reviewed at the time of visit. Patient consent photos of SP tube site if she is concerned over appearance. Thanks, HM * Telephone Encounter - Fani Starr LPN [...] EDT Patient called with concerned post surgery 6/19/24. She notes the sensation of constantly have [...] 02/02/2024 1:00 PM EDT Office Visit Urology, [facility] [address] [place] [address] Alfredo Panda MD [address] [place] [address] 02/05/2024 9:30 AM EDT Scheduled Telephone [facility], [facility] [address] [facility] [place] [address] Jesusita Saenz RDN [address] [facility] [place] [address] 02/09/2024 9:00 AM EDT Home Visit [facility], [facility] [address] [place] [address] Kirby Valenzuela PA-C [address] [place] [address] 02/25/2024 11:00 AM EDT Office Visit Cardiology, [facility] [address] [place] [address] Haydee Pop CRNP [address] [place] [address] 03/02/2024 4:00 PM EDT Imaging Radiology, [place] [phone] [facility] [address] 06/08/2024 6:00 PM EST Office Visit [facility] [place] [address] [place] [address] Brian Domínguez MD [address] [place] [address] Scheduled Procedures Name Priority Associated [...] 06/10/2021, 08/29/2020, 08/01/2020 CKD PHOS USE SMARTSET 29654 10/24/202310/05, 02/18/2022, 02/17/2022, Additional history exists *COPD [...] Additional history exists CKD HGB USE SMARTSET 12280 12/10/202412/10, 08/04/2023, 08/04/2023, Additional history exists O2 [...] this encounter Medical Devices Implanted Type Area Silk Screen Printer Helper Device Identifier Shelf Expiration Date Model / Serial / Lot Sut Steel 6 M654g - [id number] Implanted:Qty: 3 on 02/15/2011 at [place] [facility] N/A: Chest DO NOT USE 01/15/2015 M654G / / [id number] Band Magdy 225-241 - [id number] Implanted:Qty: 1 on 02/15/2011 at OR [facility] N/A: Chest [employer] 225-241 / / [id number] Sut Steel 6 M654g - [id number] Implanted:Qty: 1 on 02/15/2011 at OR [facility] N/A: Chest DO NOT USE 07/21/2015 M654G / / [id number] documented as of this encounter Advance Directives Documents on File Type Date Recorded Patient Steel Placer Expl anation POLST 05/06/2018 POLST * Full [...] on File Name Relationship Healthcare Agent [facility] Communication Carolyn Ballard Adult Child Health Care Agent Care Teams Environmental Health Physician Relationship Specialty Start Date End Date Brian Domínguez MD [address] [place] [address] PCP - General Family Medicine 07/16/17 documented as of this encounter
--- OUTSIDE RECORDS SUMMARY | 2024-03-03 08:04 | External Medical Summary | Summary of Care ---
Author Name Unknown Organization [facility] Address [address] [place] [address] Phone [phone] Care Team Providers Care Pad Machine Feeder Name Role Phone Brian Domínguez MD Primary Care Provider +1- [phone] Reason for Visit * Reason Onset Date Comments Referral 02/05/2024 [facility] Discharge ( DM ) Encounter Details Date Type Department Care Team (Late st Contact Info) Description 02/05/2024 Telephone Pharmacy, [place] [address] [place] [address] [facility] [address] [place] [address] Referral ([facility] Discharge ( DM )) Allergies Active Allergy Reactions Criticality Noted Date Comments Propoxyphene Hcl Rash Low 10/29/2010 Fentanyl Diarrhea Low 04/26/2010 anxiety Methocarbamol Medium 10/05/2020 Other reaction(s): Delirium Methocarbamol Low 04/15/2007 Zolpidem Low 10/05/2020 Other reaction(s): Confusion documented as of this encounter (statuses as of 02/05/2024) Medications Medication Sig Dispensed Refills Start Date End Date Status venlafaxine XR (EFFEXOR XR) 150 MG KW80Quaiaopemhy:Dep ression Take 1 Cap by mouth daily. [...] Kit 11/18/2017 Active Blood Glucose Monitoring Suppl (LocalOn VERIO) w/Device KIT Use as directed. Use as directed. 1 Kit 10/31/2018 Active Spacer/Aero-Holding Chambers WISAM Use with inhaler. Wheezing/bronchitis . 1 Device 04/08/2019 Active Lancet Devices (CurioosTOUCH DELICA LANCING DEV) MISC Use four times [...] minutes 25 Tablet 5 10/16/2023 Active Nystatin 000356 UNIT/GM External Powder (Nystop)Indications :Candidal intertrigo Apply topically to affected area 3 times a day. Apply to right breast until rash resolved. 30 g 10/16/2023 Active Nystatin 109241 UNIT/ML Mouth/Throat Suspension SWISH AND SWALLOW 5ML IN THE MORNING AND 5ML AT NOON AND 5 ML IN THE EVENING AND 5ML BEFORE BEDTIME, FOR THRUSH 240 mL 1 10/16/2023 Active Metoprolol Succinate ER 25 MG Oral Tablet Extended Release 24 Hour (toPROL XL)Indications:HTN, goal below 130/80 TAKE 1 TABLET BY MOUTH EVERY MORNING 90 Tablet 10/25/2023 Active Vitamin D (Ergocalciferol) 1.25 MG (90797 UT) Oral Capsule (Drisdol)Indication s:Vitamin D deficiency [...] Oral Tablet (Demadex)Indication s:Atherosclerotic heart disease of [place] coronary artery with other forms of angina [...] mg daily Coronary artery disease invo lving [place] coronary artery of [place] heart without angina pectoris 11/15/2021 Last Assessment [...] weekly Avoid nephrotoxic drugs Urge incontinence 03/27/2021 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-ob gyn physician assistant and ID Acute cystitis without hematuria 03/27/2021 07/08/2022 Pelvic pain 03/27/2021 02/03/2024 Type 2 diabetes mellitus wit h diabetic neuropathy 09/07/2018 11/07/2023 Overview: duplicate Mild protein-calorie malnutrition 05/07/2018 04/29/2019 Diabetes mellitus with neuropathy 05/06/2018 09/07/2018 Other cirrhosis of liver 05/06/2018 Atherosclerotic heart diseas e of [place] coronary artery with other forms of angina [...] stenosis 10/31/2010 08/28/2018 Acute coronary syndrome 10/30/201001/04 [place] Research Other*[id number] 02/02/2010 04/18/2014 Overview: [place] [facility], Dr Joel Kwon PI Obesity, morbid [...] encounter Miscellaneous Notes * Telephone Encounter - Lucretia Faulkner PHARM Tech - 02/05/2024 11:01 AM EDT Angelina has not contacted the clinic to schedule/reschedule an appointment for diabetes management per referral from PCP despite multiple attempts to do so by our team. Patient is discharged from [facility] services at this time. Thank you, Lucretia Faulkner [facility] [phone] 02/05/2024,11:02 AM documented in this encounter Plan of Treatment Upcoming Encounters Date Type Department Care Team (Late st Contact Info) Description 02/09/2024 9:00 AM EDT [facility] Visit [facility] [place] [address] [place] [address] Kirby Valenzuela PA-C [address] [place] [address] 02/23/2024 1:30 PM EDT Office Visit Urology, [facility] [address] [place] [address] Alfredo Panda MD [address] [place] [address] 02/25/2024 11:00 AM EDT Office Visit Cardiology, [facility] [address] [place] [address] Haydee Pop CRNP [address] [place] [address] 03/02/2024 4:00 PM EDT [facility] [place] [address] [facility] [address] 03/09/2024 2:00 PM EDT Scheduled Telephone [facility], [place] [address] [place] [address] Jesusita Saenz, RDN [address] [facility] [place] [address] 03/22/2024 2:45 PM EDT Office Visit Urology, [facility] [address] [facility] [place] [address] Alfredo Panda MD [address] [place] [address] 06/08/2024 6:00 PM EST Office Visit Family [facility] [address] [place] [address] Brian Domínguez MD [address] [place] [address] Scheduled Procedures Name Priority Associated [...] 06/10/2021, 08/29/2020, 08/01/2020 CKD PHOS USE SMARTSET 56608 10/24/202310/05, 02/18/2022, 02/17/2022, Additional history exists Influenza [...] Additional history exists CKD HGB USE SMARTSET 93597 12/10/202412/10, 08/04/2023, 08/04/2023, Additional history exists O2 [...] this encounter Medical Devices Implanted Type Area Induction Furnace Operator Device Identifier Shelf Expiration Date Model / Serial / Lot Sut Steel 6 M654g - [id number] Implanted:Qty: 3 on 02/15/2011 [place] [facility] [place]: Chest DO NOT USE 01/15/2015 M654G / / [id number] Gaston Fuentesham 225-491 - [id number] Implanted:Qty: 1 on 02/15/2011 at [place] [facility] [place]A: Chest [employer] 225-241 / / [id number] Sut Steel 6 M654g - [id number] Implanted:Qty: 1 on 02/15/2011 at [place] [facility] [place]A: Chest DO NOT USE 07/21/2015 M654G / / [id number] documented as of this encounter Advance Directives Documents on File Type Date Recorded Patient Vp Of Technology Jose GARZON 05/06/2018 POLST * Full Code [...] [facility] Carolyn Ballard Adult Child Health Care Agent Care Teams Pad Machine Feeder Relationship Specialty Start Date End Date Brian Domínguez MD [address] [facility] [place] [address] PCP - General Family Medicine 07/16/17 documented as of this encounter
--- OUTSIDE RECORDS SUMMARY | 2024-03-03 08:05 | External Medical Summary | Summary of Care ---
Author Name Unknown Organization [facility] Address [address] [place] [address] Phone [phone] Care Team Providers Care Vp Product Name Role Phone Brian Domínguez MD Primary Care Provider +1- [phone] Reason for Visit * Reason Onset Date Comments Post-Op 01/21/2024 Encounter Details Date Type Department Care Team (Late st Contact Info) Description 01/21/2024 Telephone Urology, [facility] [address] [facility] [place] [id number] Alfredo Panda MD [address] [place] [address] Post-Op Allergies Active Allergy Reactions Criticality Noted Date Comments Propoxyphene Hcl Rash Low 10/29/2010 Fentanyl Diarrhea Low 04/26/2010 anxiety Methocarbamol Medium 10/05/2020 Other reaction(s): Delirium Methocarbamol Low 04/15/2007 Zolpidem Low 10/05/2020 Other reaction(s): Confusion documented as of this encounter (statuses as of 01/28/2024) Medications Medication Sig Dispensed Refills Start Date End Date Status venlafaxine XR (EFFEXOR XR) 150 MG VH70Pohhbpliodh:De pression Take 1 Cap by mouth daily. [...] 11/19/19 18 Active Blood Glucose Monitoring Suppl (Osteoplastics VERIO) w/Device KIT Use as directed. Use as directed. 1 Kit 11/01/19 19 Active Spacer/Aero-Holdin g Chambers WISAM Use with inhaler. Wheezing/bronchit is. 1 Device 04/08/20 19 Active Lancet Devices (OwingoTOUCH DELICA LANCING DEV) MISC Use four times [...] INSTRUCTIONS Please arrange for as needed [facility] [place] [facility] visit for obtaining straight cath urine sample [...] 25 Tablet 5 10/16/19 24 Active Nystatin 091741 UNIT/GM External Powder (Nystop)Indication s:Candidal intertrigo Apply topically to affected area 3 times a day. Apply to right breast until rash resolved. 30 g 10/16/19 24 Active Nystatin 387144 UNIT/ML Mouth/Throat Suspension SWISH AND SWALLOW 5ML [...] 24 Active Vitamin D (Ergocalciferol) 1.25 MG (12064 UT) Oral Capsule (Drisdol)Alem ns:Vitamin D deficiency [...] Oral Tablet (Demadex)Indicatio ns:Atherosclerotic heart disease of [place] coronary artery with other forms of angina [...] as of this encounter (statuses as of 01/28/2024) Active Problems Problem Noted Date Diagnosed Date [...] mg daily Coronary artery disease invo lving [place] coronary artery of [place] heart without angina pectoris 11/15/2021 Last Assessment & Plan: Stable. No angina -continue toprol, ASA and statin Seasonal allergies 11/15/2021 Recurrent UTI 10/07/2021 Last Assessment & Plan: Followed by urology Pt is supposed to be on methenamine--will need to clarify with dgt that she is giving this. 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-flaring machine operator and ID Type 2 diabetes [...] 01/16/22 Moderate aortic stenosis 05/06/2018 Anxiety 08/05/2017 Yssadmp-Cmcuj-Qitpl disease 06/27/2015 Last Assessment & Plan: Frequent [...] as of this encounter (statuses as of 01/28/2024) Resolved Problems Problem Noted Date Diagnosed Date [...] liver 05/06/2018 Atherosclerotic heart diseas e of [place] coronary artery with other forms of angina [...] stenosis 10/31/2010 08/28/2018 Acute coronary syndrome 10/30/201001/04 [place] Research Other*[id number] 02/02/2010 04/18/2014 Overview: [place] [facility], Dr Joel Kwon PI Obesity, morbid [...] as of this encounter (statuses as of 01/28/2024) Immunizations Name Administration Dates Next Due COVID-19 [...] encounter Miscellaneous Notes * Telephone Encounter - Erinn Wright OSA [...] 02/02/2024 1:00 PM EDT Office Visit Urology, [facility] [address] [facility] [place] [address] Alfredo Panda MD [address] [place] [address] 02/05/2024 9:30 AM EDT Scheduled Telephone [facility], [facility] [address] [facility] [place] [address] Jesusita Saenz, RDN [address] [place] [address] 02/09/2024 9:00 AM EDT [facility], [facility] [address] [facility] [place] [address] Kirby Valenzuela PA-C [address] [place] [address] 02/25/2024 11:00 AM EDT Office Visit Cardiology, [facility] [address] [facility] [place] [address] Haydee Pop CRNP [address] [place] [address] 03/02/2024 4:00 PM EDT Imaging Radiology, [facility] [address] [place] [address] 06/08/2024 6:00 PM EST Office Visit Family [facility] [address] [place] [phone] Brian Domínguez MD [address] [place] [address] Scheduled Procedures Name Priority Associated Diagnoses Date/Ti [...] 06/10/2021, 08/29/2020, 08/01/2020 CKD PHOS USE SMARTSET 66093 10/24/202310/05, 02/18/2022, 02/17/2022, Additional history exists *COPD [...] Additional history exists CKD HGB USE SMARTSET 08698 12/10/202412/10, 08/04/2023, 08/04/2023, Additional history exists O2 [...] this encounter Medical Devices Implanted Type Area Customer Service Supervisor Device Identifier Shelf Expiration Date Model / Serial / Lot Jenna Rojas 6 M654g - [id number] Implanted:Qty: 3 on 02/15/2011 at [place] [facility] [place]A: Chest DO NOT USE 01/15/2015 M654G / / [id number] Band Magdy 225-241 - [id number] Implanted:Qty: 1 on 02/15/2011 at [place] [facility] [place] N/A: Chest [employer] 225-241 / / [id number] Jenna Rojas 6 M654g - [id number] Implanted:Qty: 1 on 02/15/2011 at [place] [facility] [place] N/A: Chest DO NOT USE 07/21/2015 M654G / / [id number] documented as of this encounter Advance Directives Documents on File Type Date Recorded Patient Stitching Department Supervisor Expl anation POLST 05/06/2018 POLST * Full [...] Agents on File Name Relationship Healthcare Agent [facility] Communication Carolyn Ballard Adult Child Health Care Agent [phone] (Home) Care Teams Vp Product Relationship Specialty Start Date End Date Brian Domínguez MD [address] [place] [address] PCP - General Family Medicine 07/16/17 documented as of this encounter
--- OUTSIDE RECORDS SUMMARY | 2024-03-03 08:05 | External Medical Summary | Summary of Care ---
Author Name Unknown Organization [facility] Address [address] [place] [address] Phone [phone] Care Team Providers Care Oracle Database Analyst Name Role Phone Carmen Sifuentes MD Primary Care Provider +1- [phone] Reason for Referral * Medication Prior Authorization - Closed Specialty Diagnoses / Procedures Referred By Contac t Referred To Contact Diagnoses Nausea Carmen Sifuentes MD [address] [place] [address] Referral ID Status Reason Start Date Expiration Date Visits Re quested Visits Authorized [id number] Closed [phone] Reason for Visit * Reason Onset Date Comments Med Request 01/28/2024 Medication Refill 01/28/2024 Encounter Details Date Type Department Care Team (Late st Contact Info) Description 01/28/[address] [facility] [address] [place] [phone] Carmen Sifuentes MD [address], [place] [id number] Nausea Allergies Active Allergy Reactions Criticality Noted Date Comments Propoxyphene Hcl Rash Low 10/29/2010 Fentanyl Diarrhea Low 04/26/2010 anxiety Methocarbamol Medium 10/05/2020 Other reaction(s): Delirium Methocarbamol Low 04/15/2007 Zolpidem Low 10/05/2020 Other reaction(s): Confusion documented as of this encounter (statuses as of 01/28/2024) Medications Medication Sig Dispensed Refills Start Date End Date Status venlafaxine XR (EFFEXOR XR) 150 MG BF37Wzqtercmkwc:Dep ression Take 1 Cap by mouth daily. With food. 30 Cap 5 7 Active Additional Information Patient taking differently: 225 mgOral Daily(AM),Taking a total of 225 mg, Indications: Takes 225 mg total every morning with food (150 mg tab + 75 mg tab), Reported on 03/03/2023 Blood Glucose Monitoring Suppl ([employer] GLUCOMETER) w/Device KITIndications:Unco ntrolled type 2 diabetes mellitus without complication, without long-term current use of insulin Use as directed. Use as directed once daily 1 Kit 8 Active Blood Glucose Monitoring Suppl (SchoolChaptersUCH VERIO) w/Device KIT Use as directed. Use as directed. 1 Kit 9 Active Spacer/Aero-Holding Chambers WISAM Use with inhaler. Wheezing/bronchiti s. 1 Device 9 Active Lancet Devices (ONETOUCH DELICA LANCING DEV) [...] before bedtime 180 Tablet 3 4 Active Pantoprazole Sodium 40 MG Oral Tablet Delayed Release (Protonix)Indicatio ns:Gastroesophageal reflux disease without esophagitis TAKE 1 TABLET BY MOUTH TWICE DAILY every morning and every evening 180 Tablet 1 4 Active Estradiol 0.1 MG/GM Vaginal Cream [...] minutes 25 Tablet 5 4 Active Nystatin 294578 UNIT/GM External Powder (Nystop)Indications :Candidal intertrigo Apply topically to affected area 3 times a day. Apply to right breast until rash resolved. 30 g 4 Active Nystatin 820343 UNIT/ML Mouth/Throat Suspension SWISH AND SWALLOW 5ML IN THE MORNING AND 5ML AT NOON AND 5 ML IN THE EVENING AND 5ML BEFORE BEDTIME, FOR THRUSH 240 mL 1 4 Active Metoprolol Succinate ER 25 MG Oral Tablet Extended Release 24 Hour (toPROL XL)Indications:HTN, goal below 130/80 TAKE 1 TABLET BY MOUTH EVERY MORNING 90 Tablet 4 Active Vitamin D (Ergocalciferol) 1.25 MG (50656 UT) Oral Capsule (Drisdol)Indication s:Vitamin D deficiency [...] Capsule before bedtime. 30 Capsule 4 Active oxyBUTYnin Chloride ER 10 MG Oral [...] Capsule before bedtime. 10 Capsule 4 Active Ozempic (2 MG/DOSE) 8 MG/3ML Subcutaneous Solution Pen-injector (Semaglutide (2 MG/DOSE))Indication s:Type 2 diabetes mellitus with diabetic neuropathy, with long-term current use of insulin (HCC) Inject 2 mg subcutaneous once per week 3 mL 5 4 Active Torsemide 20 MG Oral Tablet (Demadex)Indication s:Atherosclerotic heart disease of [place] coronary artery with other forms of angina pectoris (HCC),Hypertensive heart disease with chronic diastolic congestive heart failure (HCC) TAKE 1 TABLET BY MOUTH EVERY MORNING. MAY TAKE 1 ADDITIONAL TABLET NEEDED FOR SWELLING. 90 Tablet 1 4 Active Tamsulosin HCl 0.4 MG Oral Capsule (Flomax) TAKE 1 CAPSULE BY MOUTH EVERY MORNING 90 Capsule 4 Active clonazePAM 0.5 MG Oral Tablet (KlonoPIN)Indicatio ns:Bipolar I disorder, most recent episode depressed, moderate (HCC) TAKE ONE TABLET BY MOUTH THREE TIMES DAILY 90 Tablet 4 Active Xifaxan 550 MG Oral Tablet (rifAXIMin)Indicati ons:GONZALEZ (nonalcoholic steatohepatitis),Ch ronic liver disease and cirrhosis (HCC),Hepatic encephalopathy (HCC) take 1 tablet by mouth twice daily 60 Tablet 5 4 Active Ondansetron HCl 8 MG Oral Tablet (Zofran)Indications :Nausea TAKE 1 TABLET BY MOUTH EVERY 8 HOURS NEEDED FOR NAUSEA 60 Tablet 5 4 Active Ondansetron HCl 8 MG Oral Tablet (Zofran)Indications :Nausea TAKE 1 TABLET BY MOUTH EVERY 8 HOURS NEEDED FOR NAUSEA 60 Tablet 5 3 01/28/20 24 Discontinu ed(Refill) documented as of this [...] mg daily Coronary artery disease invo lving [place] coronary artery of [place] heart without angina pectoris 11/15/2021 Last Assessment & Plan: Stable. No angina -continue toprol, ASA and statin Seasonal allergies 11/15/2021 Recurrent UTI 10/07/2021 Last Assessment & Plan: Followed by urology Pt is supposed to be on methenamine--will need to clarify with dgt that she is giving this. 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/2014 exterminator helper termite current use of ant icoagulant therapy 06/17/2006 [...] Telephone Encounter - Carmen Sifuentes MD - 01/28/2024 3:46 PM EDTSigned Prescriptions: Disp Refills Ondansetron HCl 8 MG Oral Tablet (Zofran) 60 Tab*5 Sig: TAKE 1 TABLET BY MOUTH EVERY 8 HOURS NEEDED FOR NAUSEAAuthorizing Provider: CARMEN SIFUENTES * Telephone Encounter - Eryn Anna CPhT - 01/28/2024 3:36 PM EDT Previously prescribed by Gastroenterology. See 01/14/24 encounter. Did you pend patient's preferred pharmacy and medication before forwarding?yes [facility]acy: [id number] [facility] [place] Pending Prescriptions: Disp Refills Ondansetron HCl 8 MG Oral Tablet (Zofran) 60 Tab*5 Sig: TAKE 1 TABLET BY MOUTH EVERY 8 HOURS NEEDED FOR NAUSEA Last Visit: 11/18/2023 (in office), 06/20/2023 (telemedicine) Next Visit: 06/08/2024 If no future appointments scheduled, and last appointment is greater than a year ago, please schedule patient for a follow-up appointment Last date the medication was ordered: 12/09/2022 Is this request for a controlled substance?No [...] 02/02/2024 1:00 PM EDT Office Visit Urology, [facility] [address] [facility] [place] [address] Alfredo Panda MD [address] [place] [address] 02/05/2024 9:30 AM EDT Scheduled Tele[facility] [address] [facility] [place] [address] Jesusita Saenz RDN [address] [facility] [place] [address] 02/09/2024 9:00 AM EDT [facility] Visit [facility], [facility] [address] [facility] [place] [address] Kirby Valenzuela PA-C [address] [place] [address] 02/25/2024 11:00 AM EDT Office Visit Cardiology, [facility] [address] [facility] [place] [address] Haydee Pop CRNP [address] [facility] [place] [address] 03/02/2024 4:00 PM EDT Imaging Radiology, [address], [place] [address] 06/08/2024 6:00 PM EST Office Visit Family [facility] [address] [place] [phone] Carmen Sifuentes MD [address] [place] [address] Scheduled Procedures Name Priority Associated Diagnoses Date/Ti [...] 06/10/2021, 08/29/2020, 08/01/2020 CKD PHOS USE SMARTSET 34118 10/24/202310/05, 02/18/2022, 02/17/2022, Additional history exists *COPD [...] Additional history exists CKD HGB USE SMARTSET 74333 12/10/202412/10, 08/04/2023, 08/04/2023, Additional history exists O2 [...] this encounter Medical Devices Implanted Type Area Oil Tanker Captain Device Identifier Shelf Expiration Date Model / Serial / Lot Jenna Rojas 6 M654g - [id number] Implanted:Qty: 3 on 02/15/2011 [place] [facility] [place]: Chest DO NOT USE 01/15/2015 M654G / / [id number] Band Magdy 225-241 - [id number] Implanted:Qty: 1 on 02/15/2011 at [place] [facility] [place]A: Chest [employer] 225-241 / / [id number] Jenna Rojas 6 M654g - [id number] Implanted:Qty: 1 on 02/15/2011 at [place] [facility] [place]A: Chest DO NOT USE 07/21/2015 M654G / / [id number] documented as of this encounter Visit Diagnoses Diagnosis Nausea Nausea alone documented in this encounter Advance Directives Documents on File Type Date Recorded Patient Plastic And Reconstructive Surgeon Expl anation POLST 05/06/2018 POLST * Full [...] Adult Child Health Care Agent Care Teams Oracle Database Analyst Relationship Specialty Start Date End Date Carmen Sifuentes MD [address] [place] [facility] [place] [address] PCP - General Family Medicine 07/16/17 documented as of this encounter
--- OUTSIDE RECORDS SUMMARY | 2024-03-03 08:05 | External Medical Summary | Summary of Care ---
Author Name Unknown Organization [facility] Address [address] [place] [address] Phone [phone] Care Team Providers Care Powder Nipper Name Role Phone Brian Domínguez MD Primary Care Provider +1- [phone] Reason for Visit * Reason Onset Date Comments Post-Op 01/21/2024 Encounter Details Date Type Department Care Team (Late st Contact Info) Description 01/21/2024 Telephone Urology, [facility] 132 [facility] [place] [id number] Alfredo Panda MD [address] [place] [...] Status venlafaxine XR (EFFEXOR XR) 150 MG [id number]:De pression Take 1 Cap by mouth daily. [...] 11/19/19 18 Active Blood Glucose Monitoring Suppl ([employer] VERIO) w/Device KIT Use as directed. Use as directed. 1 Kit 11/01/19 19 Active Spacer/Aero-Holdin g Chambers WISAM Use with inhaler. Wheezing/bronchit is. 1 Device 04/08/20 19 Active Lancet Devices (Radius HealthTOUCH DELICA LANCING DEV) MISC Use four times [...] 25 Tablet 5 10/16/19 24 Active Nystatin 747313 UNIT/GM External Powder (Nystop)Indication s:Candidal intertrigo Apply topically to affected area 3 times a day. Apply to right breast until rash resolved. 30 g 10/16/19 24 Active Nystatin 647446 UNIT/ML Mouth/Throat Suspension SWISH AND SWALLOW 5ML [...] 24 Active Vitamin D (Ergocalciferol) 1.25 MG (13852 UT) Oral Capsule (Drisdol)Alem ns:Vitamin D deficiency [...] Oral Tablet (Demadex)Indicatio ns:Atherosclerotic heart disease of [place] [...] mg daily Coronary artery disease invo lving [place] coronary artery of [place] heart without angina pectoris 11/15/2021 Last Assessment & Plan: Stable. No angina -continue toprol, ASA and statin Seasonal allergies 11/15/2021 Recurrent UTI 10/07/2021 Last Assessment & Plan: Followed by urology Pt is supposed to be on methenamine--will need to clarify with dgt that she is giving this. 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-avionics engineer and ID Type 2 diabetes mellitus [...] 01/16/22 Moderate aortic stenosis 05/06/2018 Anxiety 08/05/2017 Pnlgnxz-Eukpu-Mtkux disease 06/27/2015 Last Assessment & Plan: Frequent [...] stenosis 10/31/2010 08/28/2018 Acute coronary syndrome 10/30/201001/04 [place] Research Other*[id number] 02/02/2010 04/18/2014 Overview: [place] [facility], Dr Joel Kwon PI Obesity, morbid [...] 02/02/2024 1:00 PM EDT Office Visit Urology, [facility] 132 [facility] [place] [address] Alfredo Panda MD [address] [place] [address] 02/05/2024 9:30 AM EDT Scheduled Telephone [facility], [facility] [address] [facility] [place] [address] Jesusita Saenz, RDN [address] [place] [address] 02/09/2024 9:00 AM EDT Home Visit [facility], [facility] [address] [facility] [place] [address] Kirby Valenzuela PA-C [address] [place] [address] 02/25/2024 11:00 AM EDT Office Visit Cardiology, [facility] 132 [facility] [place] [address] Haydee Pop CRNP [address] [place] [address] 03/02/2024 4:00 PM EDT Imaging Radiology, [facility] [address] [place] [address] 06/08/2024 6:00 PM EST Office Visit Family [facility] [address] [place] [phone] Brian Domínguez MD [address] [place] [address] Scheduled Procedures Name Priority Associated Diagnoses Date/Ti [...] 06/10/2021, 08/29/2020, 08/01/2020 CKD PHOS USE SMARTSET 06169 10/24/202310/05, 02/18/2022, 02/17/2022, Additional history exists *COPD [...] Additional history exists CKD HGB USE SMARTSET 55863 12/10/202412/10, 08/04/2023, 08/04/2023, Additional history exists O2 [...] this encounter Medical Devices Implanted Type Area Bricklayer Sewer Device Identifier Shelf Expiration Date Model / Serial / Lot Jenna Rojas 6 M654g - [id number] Implanted:Qty: 3 on 02/15/2011 at [place] [facility] [place] N/A: Chest DO NOT USE 01/15/2015 M654G / / [id number] Band Magdy 225-241 - [id number] Implanted:Qty: 1 on 02/15/2011 at OR [facility] [place] N/A: Chest [employer] 225-241 / / [id number] Jenna Rojas 6 M654g - [id number] Implanted:Qty: 1 on 02/15/2011 at OR [facility] [place] N/A: Chest DO NOT USE 07/21/2015 M654G / / [id number] documented as of this encounter Advance Directives Documents on File Type Date Recorded Patient Resident Care Associate Expl anation POLST 05/06/2018 POLST * Full [...] File Name Relationship Healthcare Agent [facility] Communication Carolyn Ballard Adult Child Health Care Agent [id number] [phone] (Home) Care Teams Powder Nipper Relationship Specialty Start Date End Date Brian Domínguez MD [address] [place] [address] PCP - General Family Medicine 07/16/17 documented as of this encounter
--- OUTSIDE RECORDS SUMMARY | 2024-03-03 08:05 | External Medical Summary | Summary of Care ---
Author Name Unknown Organization [facility] Address [address] [place] [address] Phone [phone] Care Team Providers Care Road Gang Supervisor Name Role Phone Brian Domínguez MD Primary Care Provider [phone]- [phone] Reason for Visit * Reason Onset Date Comments Post-Op 01/21/2024 Encounter Details Date Type Department Care Team (Late st Contact Info) Description 01/21/2024 Telephone Urology, [facility] 132 [facility] [place] [id number] Alfredo Panda MD [address] [place] [...] Status venlafaxine XR (EFFEXOR XR) 150 MG [id number]:De pression Take 1 Cap by mouth daily. [...] 11/19/19 18 Active Blood Glucose Monitoring Suppl ([employer] VERIO) w/Device KIT Use as directed. Use as directed. 1 Kit 11/01/19 19 Active Spacer/Aero-Holdin g Chambers WISAM Use with inhaler. Wheezing/bronchit is. 1 Device 04/08/20 19 Active Lancet Devices (RealDirectTOUCH DELICA LANCING DEV) MISC Use four times [...] 25 Tablet 5 10/16/19 24 Active Nystatin 490844 UNIT/GM External Powder (Nystop)Indication s:Candidal intertrigo Apply topically to affected area 3 times a day. Apply to right breast until rash resolved. 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 No angina -continue toprol, ASA and statin Seasonal allergies 11/15/2021 Recurrent UTI 10/07/2021 Last Assessment & Plan: Followed by urology Pt is supposed to be on methenamine--will need to clarify with dgt that she is giving this. 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-urogynaecologist and ID Type 2 diabetes mellitus wit [...] 01/16/22 Moderate aortic stenosis 05/06/2018 Anxiety 08/05/2017 Tomecue-Jctpu-Nubsx disease 06/27/2015 Last Assessment & Plan: Frequent [...] liver 05/06/2018 Atherosclerotic heart diseas e of [place] coronary artery with other forms of angina [...] stenosis 10/31/2010 08/28/2018 Acute coronary syndrome 10/30/201001/04 [place] Research Other*[id number] 02/02/2010 04/18/2014 Overview: [place] [facility], Dr Joel Kwon PI Obesity, morbid [...] 02/02/2024 1:00 PM EDT Office Visit Urology, [facility] 132 [facility] [place] [address] Alfredo Panda MD [address] [place] [address] 02/05/2024 9:30 AM EDT Scheduled Telephone [facility], [facility] [address] [facility] [place] [address] Jesusita Saenz, RDN [address] [place] [address] 02/09/2024 9:00 AM EDT Home Visit [facility], [facility] [address] [facility] [place] [address] Kirby Valenzuela PA-C [address] [place] [address] 02/25/2024 11:00 AM EDT Office Visit Cardiology, [facility] 132 [facility] [place] [address] Haydee Pop CRNP [address] [place] [address] 03/02/2024 4:00 PM EDT Imaging Radiology, [facility] [address] [facility] [place] [address] 06/08/2024 6:00 PM EST Office Visit Family [facility] [address] [place] [phone] Brian Domínguez MD [address] [place] [address] Scheduled Procedures Name Priority Associated Diagnoses Date/Ti [...] 06/10/2021, 08/29/2020, 08/01/2020 CKD PHOS USE SMARTSET 21785 10/24/202310/05, 02/18/2022, 02/17/2022, Additional history exists *COPD [...] Additional history exists CKD HGB USE SMARTSET 26650 12/10/202412/10, 08/04/2023, 08/04/2023, Additional history exists O2 [...] this encounter Medical Devices Implanted Type Area Cosmetics Presser Device Identifier Shelf Expiration Date Model / Serial / Lot Jenna Rojas 6 M654g - [id number] Implanted:Qty: 3 on 02/15/2011 [place] [facility] [place]: Chest DO NOT USE 01/15/2015 M654G / / [id number] Band Magdy 225-241 - [id number] Implanted:Qty: 1 on 02/15/2011 at [place] [facility] [place] N/A: Chest [employer] 225-241 / / [id number] Jenna Rojas 6 M654g - [id number] Implanted:Qty: 1 on 02/15/2011 at [place] [facility] [place]A: Chest DO NOT USE 07/21/2015 M654G / / [id number] documented as of this encounter Advance Directives Documents on File Type Date Recorded Patient Ophthalmology Surgical Technician Expl anation POLST 05/06/2018 POLST * Full [...] Agents on File Name Relationship Healthcare Agent [facility] Communication Carolyn Ballard Adult Child Health Care Agent [phone] (Home) Care Teams Road Gang Supervisor Relationship Specialty Start Date End Date Brian Domínguez MD [address] [place] [address] PCP - General Family Medicine 07/16/17 documented as of this encounter
--- OUTSIDE RECORDS SUMMARY | 2024-03-03 08:06 | External Medical Summary | Summary of Care ---
Author Name Unknown Organization [facility] [address] [facility] [address] Phone [phone] Care Team Providers Care Naval Aircrewman Name Role Phone Brian Domínguez MD Primary Care Provider +1- [phone] Encounter Details Date Type Department Care Team (Late st Contact Info) Description 01/21/2024 Telephone Urology, [facility] 132 [facility] [place] [id number] Alfredo Panda MD [address] [place] [address] Allergies Active Allergy Reactions Criticality Noted Date Comments Propoxyphene Hcl Rash Low 10/29/2010 Fentanyl Diarrhea Low 04/26/2010 anxiety Methocarbamol Medium 10/05/2020 Other reaction(s): Delirium Methocarbamol Low 04/15/2007 Zolpidem Low 10/05/2020 Other reaction(s): Confusion documented as of this encounter (statuses as of 01/21/2024) Medications Medication Sig Dispensed Refills Start Date End Date Status venlafaxine XR (EFFEXOR XR) 150 MG [id number]:Dep ression Take 1 Cap by mouth daily. [...] Kit 11/18/2017 Active Blood Glucose Monitoring Suppl (MoxieTOUCH VERIO) w/Device KIT Use as directed. Use as directed. 1 Kit 10/31/2018 Active Spacer/Aero-Holding Chambers WISAM Use with inhaler. Wheezing/bronchitis . 1 Device 04/08/2019 Active Lancet Devices (MoxieTOUCH DELICA LANCING DEV) MISC Use four times [...] FOR NAUSEA 60 Tablet 5 12/09/2022 Active Budesonide-Formoter ol Fumarate 160-4.5 MCG/ACT Inhalation [...] for 06/25/23. 1 Each 1 06/24/2023 Active Xifaxan 550 MG Oral Tablet (rifAXIMin)Indicati ons:GONZALEZ (nonalcoholic steatohepatitis),Ch ronic liver disease and cirrhosis (HCC),Hepatic encephalopathy (HCC) TAKE 1 TABLET BY MOUTH TWICE DAILY 60 Tablet 5 07/16/2023 Active Famotidine 40 MG Oral Tablet (Pepcid)Indications [...] minutes 25 Tablet 5 10/16/2023 Active Nystatin 123098 UNIT/GM External Powder (Nystop)Indications :Candidal intertrigo Apply topically to affected area 3 times a day. Apply to right breast until rash resolved. 30 g 10/16/2023 Active Nystatin 104217 UNIT/ML Mouth/Throat Suspension SWISH AND SWALLOW 5ML IN THE MORNING AND 5ML AT NOON AND 5 ML IN THE EVENING AND 5ML BEFORE BEDTIME, FOR THRUSH 240 mL 1 10/16/2023 Active Metoprolol Succinate ER 25 MG Oral Tablet Extended Release 24 Hour (toPROL XL)Indications:HTN, goal below 130/80 TAKE 1 TABLET BY MOUTH EVERY MORNING 90 Tablet 10/25/2023 Active Vitamin D (Ergocalciferol) 1.25 MG (72879 UT) Oral Capsule (Drisdol)Indication s:Vitamin D deficiency [...] Capsule before bedtime. 30 Capsule 11/26/2023 Active oxyBUTYnin Chloride ER 10 MG Oral [...] Capsule before bedtime. 10 Capsule 01/01/2024 Active Ozempic (2 MG/DOSE) 8 MG/3ML Subcutaneous Solution Pen-injector (Semaglutide (2 MG/DOSE))Indication s:Type 2 diabetes mellitus with diabetic neuropathy, with long-term current use of insulin (HCC) Inject 2 mg subcutaneous once per week 3 mL 5 01/01/2024 Active Torsemide 20 MG Oral Tablet (Demadex)Indication s:Atherosclerotic heart disease of [place] coronary artery with other forms of [...] THREE TIMES DAILY 90 Tablet 01/14/2024 Active documented as of this encounter (statuses as of 01/21/2024) Active Problems Problem Noted Date Diagnosed Date [...] mg daily Coronary artery disease invo lving [place] coronary artery of [place] heart without angina pectoris 11/15/2021 Last Assessment & Plan: Stable. No angina -continue toprol, ASA and statin Seasonal allergies 11/15/2021 Recurrent UTI 10/07/2021 Last Assessment & Plan: Followed by urology Pt is supposed to be on methenamine--will need to clarify with dgt that she is giving this. 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 operator and ID Type 2 diabetes mellitus [...] drugs Pelvic pain 03/27/2021 Urge incontinence 03/27/2021 assisted (current) use of [...] 01/16/22 Moderate aortic stenosis 05/06/2018 Anxiety 08/05/2017 Utdbdlq-Qbgna-Kvnok disease 06/27/2015 Last Assessment & Plan: Frequent [...] as of this encounter (statuses as of 01/21/2024) Resolved Problems Problem Noted Date Diagnosed Date [...] liver 05/06/2018 Atherosclerotic heart diseas e of [place] coronary artery with other forms of [...] stenosis 10/31/2010 08/28/2018 Acute coronary syndrome 10/30/201001/04 [place] Research Other*[id number] 02/02/2010 04/18/2014 Overview: [place] [facility], Dr Joel CASAS Obesity, morbid (more [...] as of this encounter (statuses as of 01/21/2024) Immunizations Name Administration Dates Next Due COVID-19 [...] Care Team (Late st Contact Info) Description 01/26/2024 3:45 PM EDT Procedure Only Urology, [facility] [address] [place] [address] Alfredo Panda MD [address] [place] [address] 02/05/2024 9:30 AM EDT Scheduled Telephone [facility], [facility] [address] [facility] [place] [address] Jesusita Saenz RDN [address] [facility] [place] [address] 02/09/2024 9:00 AM EDT Home Visit [facility], [facility] [address] [place] [address] Kirby Valenzuela PA-C [address] [place] [address] 02/25/2024 11:00 AM EDT Office Visit Cardiology, [facility] [address] [place] [address] Haydee Pop CRNP [address] [place] [address] 03/02/2024 4:00 PM EDT Imaging Rad[facility], [place] [address] [facility] [address] 06/08/2024 6:00 PM EST Office Visit Family [facility] [address] [place] [facility] [place] [phone] Brian Domínguez MD [address] [place] [address] Scheduled Procedures Name Priority Associated [...] 06/10/2021, 08/29/2020, 08/01/2020 CKD PHOS USE SMARTSET 13967 10/24/202310/05, 02/18/2022, 02/17/2022, Additional history exists *COPD [...] Additional history exists CKD HGB USE SMARTSET 77155 12/10/202412/10, 08/04/2023, 08/04/2023, Additional history exists O2 [...] encounter Medical Devices Implanted Type Area Label Maker Device Identifier Shelf Expiration Date Model / Serial / Lot Sut Steel 6 M654g - [id number] Implanted:Qty: 3 on 02/15/2011 at [place] [facility] [place] N/A: Chest DO NOT USE 01/15/2015 M654G / / [id number] Band Magdy 225-241 - [id number] Implanted:Qty: 1 on 02/15/2011 at [place] [facility] [place] N/A: Chest [employer] 225-241 / / [id number] Sut Steel 6 M654g - [id number] Implanted:Qty: 1 on 02/15/2011 at [place] [facility] [place] N/A: Chest DO NOT USE 07/21/2015 M654G / / [id number] documented as of this encounter Advance Directives Documents on File Type Date Recorded 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 Communication Carolyn Ballard Adult Child Health Care Agent Care Teams Naval Aircrewman Relationship Specialty Start Date End Date Brian Domínguez MD [address] [place] [address] PCP - General Family Medicine 07/16/17 documented as of this encounter
--- OUTSIDE RECORDS SUMMARY | 2024-03-03 08:06 | External Medical Summary | Summary of Care ---
Author Name Unknown Organization [facility] Address [address] [facility] [address] Phone [phone] Care Team Providers Care Engineer System Administrator Name Role Phone Brian Domínguez MD Primary Care Provider +1- [phone] Encounter Details Date Type Department Care Team (Late st Contact Info) Description 01/21/2024 Telephone Urology, [facility] 132 [facility] [place] [id number] Alfredo Panda MD [address] [place] [address] [...] Status venlafaxine XR (EFFEXOR XR) 150 MG [id number]:Dep ression Take 1 Cap by mouth daily. [...] Kit 11/18/2017 Active Blood Glucose Monitoring Suppl (TiciesTOUCH VERIO) w/Device KIT Use as directed. Use as directed. 1 Kit 10/31/2018 Active Spacer/Aero-Holding Chambers WISAM Use with inhaler. Wheezing/bronchitis . 1 Device 04/08/2019 Active Lancet Devices (TiciesTOUCH DELICA LANCING DEV) MISC Use four times [...] minutes 25 Tablet 5 10/16/2023 Active Nystatin 144671 UNIT/GM External Powder (Nystop)Indications :Candidal intertrigo Apply topically to affected area 3 times a day. Apply to right breast until rash resolved. 30 g 10/16/2023 Active Nystatin 043198 UNIT/ML Mouth/Throat Suspension SWISH AND SWALLOW 5ML IN THE MORNING AND 5ML AT NOON AND 5 ML IN THE EVENING AND 5ML BEFORE BEDTIME, FOR THRUSH 240 mL 1 10/16/2023 Active Metoprolol Succinate ER 25 MG Oral Tablet Extended Release 24 Hour (toPROL XL)Indications:HTN, goal below 130/80 TAKE 1 TABLET BY MOUTH EVERY MORNING 90 Tablet 10/25/2023 Active Vitamin D (Ergocalciferol) 1.25 MG (89255 UT) Oral Capsule (Drisdol)Indication s:Vitamin D deficiency [...] Oral Tablet (Demadex)Indication s:Atherosclerotic heart disease of [place] coronary artery with other forms of angina [...] mg daily Coronary artery disease invo lving [place] coronary artery of [place] heart without angina pectoris 11/15/2021 Last Assessment & Plan: Stable. No angina -continue toprol, ASA and statin Seasonal allergies 11/15/2021 Recurrent UTI 10/07/2021 Last Assessment & Plan: Followed by urology Pt is supposed to be on methenamine--will need to clarify with dgt that she is giving this. 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-machine shop specialist and ID Type 2 diabetes mellitus [...] incontinence 03/27/2021 residential (current) use of insulin 09/29/2019 Diabetic gastroparesis [...] 01/16/22 Moderate aortic stenosis 05/06/2018 Anxiety 08/05/2017 Qzzrojb-Ftnpz-Zckqw disease 06/27/2015 Last Assessment & Plan: Frequent [...] liver 05/06/2018 Atherosclerotic heart diseas e of [place] coronary artery with other forms of angina [...] stenosis 10/31/2010 08/28/2018 Acute coronary syndrome 10/30/201001/04 [place] Research Other*[id number] 02/02/2010 04/18/2014 Overview: [place] Registry, Dr Joel CASAS Obesity, morbid (more [...] thrombosis 06/17/2006 01/21/2014 residential current use of ant icoagulant therapy 06/17/2006 [...] 01/26/2024 3:45 PM EDT Procedure Only Urology, [facility] [address] [place] [address] Alfredo Panda MD [address] [place] [address] 02/05/2024 9:30 AM EDT Scheduled Telephone [facility], [facility] [address] [facility] [place] [address] Jesusita Saenz RDN [address] [place] [address] 02/09/2024 9:00 AM EDT [facility], [facility] [address] [place] [address] Kirby Valenzuela PA-C [address] [place] [address] 02/25/2024 11:00 AM EDT Office Visit Cardiology, [facility] [address] [place] [address] Haydee Pop CRNP [address] [facility] [place] [address] 03/02/2024 4:00 PM EDT Imaging Radiology, [facility] [address] [facility] [address] 06/08/2024 6:00 PM EST [facility] [address] [place] [address] Brian Domínguez MD [address] [place] [address] Scheduled Procedures Name Priority Associated [...] 06/10/2021, 08/29/2020, 08/01/2020 CKD PHOS USE SMARTSET 19264 10/24/202310/05, 02/18/2022, 02/17/2022, Additional history exists *COPD [...] Additional history exists CKD HGB USE SMARTSET 63603 12/10/202412/10, 08/04/2023, 08/04/2023, Additional history exists O2 [...] this encounter Medical Devices Implanted Type Area Cotton Seed Culler Device Identifier Shelf Expiration Date Model / Serial / Lot Sut Steel 6 M654g - [id number] Implanted:Qty: 3 on 02/15/2011 at [place] [facility] [place] N/A: Chest DO NOT USE 01/15/2015 M654G / / [id number] Gaston Fuentesham 225-483 - [id number] Implanted:Qty: 1 on 02/15/2011 at OR [facility] [place] N/A: Chest [employer] 225-241 / / [id number] Sut Steel 6 M654g - [id number] Implanted:Qty: 1 on 02/15/2011 at OR [facility] [place] N/A: Chest DO NOT USE 07/21/2015 M654G / / [id number] documented as of this encounter Advance Directives Documents on File Type Date Recorded 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 [address] PCP - General Family Medicine 07/16/17 documented as of this encounter
--- OUTSIDE RECORDS SUMMARY | 2024-03-03 08:06 | External Medical Summary | Summary of Care ---
Author Name Unknown Organization [facility] Address [address] [place] [address] Phone [phone] Care Team Providers Care Rn Visiting Name Role Phone Carmen Sifunetes MD Primary Care Provider +1- [phone] Reason for Visit * Reason Comments eRx-Medication Refill Encounter Details Date Type Department Care Team (Late st Contact Info) Description 01/26/2024 Refill [facility] [address] [place] [address] Carmne Sifuentes MD [address] [place] [address] GONZALEZ (nonalcoholic steatohepatitis); Chronic liver disease and cirrhosis (HCC); Hepatic encephalopathy (HCC) Allergies Active Allergy Reactions Criticality Noted Date Comments Propoxyphene Hcl Rash Low 10/29/2010 Fentanyl Diarrhea Low 04/26/2010 anxiety Methocarbamol Medium 10/05/2020 Other reaction(s): Delirium Methocarbamol Low 04/15/2007 Zolpidem Low 10/05/2020 Other reaction(s): Confusion documented as of this encounter (statuses as of 01/26/2024) Medications Medication Sig Dispensed Refills Start Date End Date Status venlafaxine XR (EFFEXOR XR) 150 MG [id number]:De pression Take 1 Cap by mouth daily. With food. 30 Cap 5 09/02/19 17 Active Additional Information Patient taking differently: 225 mgOral Daily(AM),Taking a total of 225 mg, Indications: Takes 225 mg total every morning with food (150 mg tab + 75 mg tab), Reported on 03/03/2023 Blood Glucose Monitoring Suppl (D-3rd Planet GLUCOMETER) w/Device KITIndications:Unc ontrolled type 2 diabetes mellitus without complication, without long-term current use of insulin Use as directed. Use as directed once daily 1 Kit 11/19/19 18 Active Blood Glucose Monitoring Suppl (EnterpriseDB VERIO) w/Device KIT Use as directed. Use as directed. 1 Kit 11/01/19 19 Active Spacer/Aero-Holdin g Chambers WISAM Use with inhaler. Wheezing/bronchiti s. 1 Device 04/08/20 19 Active Lancet Devices (EnterpriseDB DELICA LANCING DEV) MISC Use four times [...] NAUSEA 60 Tablet 5 12/10/19 23 Active Budesonide-Formote rol Fumarate 160-4.5 MCG/ACT [...] 25 Tablet 5 10/16/19 24 Active Nystatin 005814 UNIT/GM External Powder (Nystop)Indication s:Candidal intertrigo Apply topically to affected area 3 times a day. Apply to right breast until rash resolved. 30 g 10/16/19 24 Active Nystatin 888249 UNIT/ML Mouth/Throat Suspension SWISH AND SWALLOW 5ML [...] 24 Active Vitamin D (Ergocalciferol) 1.25 MG (31687 UT) Oral Capsule (Drisdol)Indicatio ns:Vitamin D deficiency [...] Oral Tablet (Demadex)Indicatio ns:Atherosclerotic heart disease of [place] coronary artery with other forms of angina [...] daily 60 Tablet 5 01/26/20 24 Active Xifaxan 550 MG Oral Tablet (rifAXIMin)Indicat ions:GONZALEZ (nonalcoholic steatohepatitis),C hronic liver disease and cirrhosis (HCC),Hepatic encephalopathy (HCC) TAKE 1 TABLET BY MOUTH TWICE DAILY 60 Tablet 5 07/16/19 24 024 Discontinued documented as of this encounter (statuses as of 01/26/2024) Active Problems Problem Noted Date Diagnosed Date [...] mg daily Coronary artery disease invo lving [place] coronary artery of [place] heart without angina pectoris 11/15/2021 Last Assessment & Plan: Stable. No angina -continue toprol, ASA and statin Seasonal allergies 11/15/2021 Recurrent UTI 10/07/2021 Last Assessment & Plan: Followed by urology Pt is supposed to be on methenamine--will need to clarify with dgt that she is giving this. 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 09/29/2019 Diabetic [...] 01/16/22 Moderate aortic stenosis 05/06/2018 Anxiety 08/05/2017 Xdyiuuc-Fhohs-Vuynx disease 06/27/2015 Last Assessment & Plan: Frequent [...] as of this encounter (statuses as of 01/26/2024) Resolved Problems Problem Noted Date Diagnosed Date [...] liver 05/06/2018 Atherosclerotic heart diseas e of [place] coronary artery with other forms of angina [...] stenosis 10/31/2010 08/28/2018 Acute coronary syndrome 10/30/201001/04 [employer] Research Other*[id number] 02/02/2010 04/18/2014 Overview: [place] [facility], Dr Joel Kwon PI Obesity, morbid [...] as of this encounter (statuses as of 01/26/2024) Immunizations Name Administration Dates Next Due COVID-19 [...] Telephone Encounter - Carmen Sifuentes MD - 01/26/2024 6:05 PM EDTSigned Prescriptions: Disp Refills Xifaxan 550 MG Oral Tablet (rifAXIMin) 60 Tab*5 Sig: take 1 tablet by mouth twice dailyAuthorizing Provider: CARMEN SIFUENTES * Telephone Encounter - Erinn Swan [facility] - 01/26/2024 1:31 PM EDTPending Prescriptions: Disp Refills Xifaxan 550 MG Oral Tablet (rifAXIMin) 60 Tab*5 Sig: take 1 tablet by mouth twice daily * Telephone Encounter - Erinn Swan RP - 01/26/2024 1:31 PM EDT Did you pend patient's preferred pharmacy and medication before forwarding?yes Pharmacy: [id number] [facility] Pending Prescriptions: Disp Refills Xifaxan 550 MG Oral Tablet (rifAXIMin) [P*60 Tab*5 Sig: take 1 tablet by mouth twice daily Last Visit: 11/18/2023 (in office), 06/20/2023 (telemedicine) Next Visit: 06/08/2024 If no future appointments scheduled, and last appointment is greater than a year ago, please schedule patient for a follow-up appointment Last date the medication was ordered: 07/16/23 Is this request for a controlled substance?No [...] 02/02/2024 1:00 PM EDT Office Visit Urology, [address] [place] [address] Alfredo Panda MD [address] [place] [address] 02/05/2024 9:30 AM EDT Scheduled Telephone [facility], [facility] [address] [facility] [place] [address] Jesusita Saenz, RDN [address] [facility] [place] [address] 02/09/2024 9:00 AM EDT Home Visit [facility], [facility] [address] [facility] [place] [address] Kirby Valenzuela PA-C [address] [place] [address] 02/25/2024 11:00 AM EDT Office Visit Cardiology, [facility] [address] [place] [address] Haydee Pop CRNP [address] [facility] [place] [address] 03/02/2024 4:00 PM EDT Imaging Radiology, [address] [address] 06/08/2024 6:00 PM EST Office Visit Family [facility] [address] [place] [id number] Carmen Sifuentes MD [address] [place] [address] Scheduled Procedures Name Priority Associated Diagnoses Date/Ti [...] 06/10/2021, 08/29/2020, 08/01/2020 CKD PHOS USE SMARTSET 73640 10/24/202310/05, 02/18/2022, 02/17/2022, Additional history exists *COPD [...] Additional history exists CKD HGB USE SMARTSET 19360 12/10/202412/10, 08/04/2023, 08/04/2023, Additional history exists O2 [...] this encounter Medical Devices Implanted Type Area Paying Teller Device Identifier Shelf Expiration Date Model / Serial / Lot Sut Steel 6 M654g - [id number] Implanted:Qty: 3 on 02/15/2011 at OR [facility] N/A: Chest DO NOT USE 01/15/2015 M654G / / [id number] Band Magdy 225-241 - [id number] Implanted:Qty: 1 on 02/15/2011 at OR [facility] N/A: Chest [employer] 225-241 / / [id number] Sut Steel 6 M654g - [id number] Implanted:Qty: 1 on 02/15/2011 at OR [facility] N/A: Chest DO NOT USE 07/21/2015 M654G / / [id number] documented as of this encounter Visit Diagnoses Diagnosis GONZALEZ (nonalcoholic steatohepatitis) Other chronic nonalcoholic liver disease Chronic liver disease and cirrhosis (HCC) Unspecified chronic liver disease without mention of alcohol Hepatic encephalopathy (HCC) Hepatic encephalopathy documented in this encounter Advance Directives Documents on File Type Date Recorded 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
--- OUTSIDE RECORDS SUMMARY | 2024-03-03 08:06 | External Medical Summary | Summary of Care ---
Author Name Unknown Organization [facility] Address [address] [facility] [place] [address] Phone [phone] Care Team Providers Care Senior Administrative Assistant Name Role Phone Brian Domínguez MD Primary Care Provider +1- [phone] Reason for Visit * Reason Onset Date Comments [facility]: Maintenance 01/27/2024 Encounter Details Date Type Department Care Team (Late st Contact Info) Description 01/27/2024 Telephone [facility], [facility] [address] [facility] [place] [address] [facility] [address] [facility] [place] [address] [facility]: Maintenance Allergies Active Allergy Reactions Criticality Noted Date Comments Propoxyphene Hcl Rash Low 10/29/2010 Fentanyl Diarrhea Low 04/26/2010 anxiety Methocarbamol Medium 10/05/2020 Other reaction(s): Delirium Methocarbamol Low 04/15/2007 Zolpidem Low 10/05/2020 Other reaction(s): Confusion documented as of this encounter (statuses as of 01/27/2024) Medications Medication Sig Dispensed Refills Start Date End Date Status venlafaxine XR (EFFEXOR XR) 150 MG [id number]:Dep ression Take 1 Cap by mouth daily. [...] Kit 11/18/2017 Active Blood Glucose Monitoring Suppl (Wikidot VERIO) w/Device KIT Use as directed. Use as directed. 1 Kit 10/31/2018 Active Spacer/Aero-Holding Chambers WISAM Use with inhaler. Wheezing/bronchitis . 1 Device 04/08/2019 Active Lancet Devices (EterniamTOUCH DELICA LANCING DEV) MISC Use four times [...] minutes 25 Tablet 5 10/16/2023 Active Nystatin 996381 UNIT/GM External Powder (Nystop)Indications :Candidal intertrigo Apply topically to affected area 3 times a day. Apply to right breast until rash resolved. 30 g 10/16/2023 Active Nystatin 591226 UNIT/ML Mouth/Throat Suspension SWISH AND SWALLOW 5ML IN THE MORNING AND 5ML AT NOON AND 5 ML IN THE EVENING AND 5ML BEFORE BEDTIME, FOR THRUSH 240 mL 1 10/16/2023 Active Metoprolol Succinate ER 25 MG Oral Tablet Extended Release 24 Hour (toPROL XL)Indications:HTN, goal below 130/80 TAKE 1 TABLET BY MOUTH EVERY MORNING 90 Tablet 10/25/2023 Active Vitamin D (Ergocalciferol) 1.25 MG (04359 UT) Oral Capsule (Drisdol)Indication s:Vitamin D deficiency [...] Oral Tablet (Demadex)Indication s:Atherosclerotic heart disease of [place] coronary artery with other forms of angina [...] twice daily 60 Tablet 5 01/26/2024 Active documented as of this encounter (statuses as of 01/27/2024) Active Problems Problem Noted Date Diagnosed Date [...] mg daily Coronary artery disease invo lving [place] coronary artery of [place] heart without angina pectoris 11/15/2021 Last Assessment & Plan: Stable. No angina -continue toprol, ASA and statin Seasonal allergies 11/15/2021 Recurrent UTI 10/07/2021 Last Assessment & Plan: Followed by urology Pt is supposed to be on methenamine--will need to clarify with dgt that she is giving this. 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 09/29/2019 Diabetic gastroparesis [...] 01/16/22 Moderate aortic stenosis 05/06/2018 Anxiety 08/05/2017 Uqlabnk-Pcjyw-Eoabd disease 06/27/2015 Last Assessment & Plan: Frequent [...] as of this encounter (statuses as of 01/27/2024) Resolved Problems Problem Noted Date Diagnosed Date [...] liver 05/06/2018 Atherosclerotic heart diseas e of [place] coronary artery with other forms of angina [...] stenosis 10/31/2010 08/28/2018 Acute coronary syndrome 10/30/201001/04 [place] Research Other*[id number] 02/02/2010 04/18/2014 Overview: [place] [facility], Dr Joel Kwon PI Obesity, morbid [...] 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 Intake reviewed that the nurses make HV every 4-6 weeks unless there is an acute issue and that [facility] PA is scheduled to see Angelina on 02/09/24. Also would like to review the need for in home physical therapy with Kirby at visit. IDALIA Colmean Environmental Health Manager [facility] documented in this encounter Plan of Treatment Upcoming Encounters Date Type Department Care Team (Late st Contact Info) Description 02/02/2024 1:00 PM EDT Office Visit Urology, [facility] [address] [place] [address] Alfredo Panda MD [address] [place] [address] 02/05/2024 9:30 AM EDT Scheduled Telephone [facility], [facility] [address] [facility] [place] [address] Jesusita Saenz RDN [address] [facility] [address] 02/09/2024 9:00 AM EDT Home Visit [facility], [facility] [address] [place] [address] Kirby Valenzuela PA-C [address] [place] [address] 02/25/2024 11:00 AM EDT Office Visit Cardiology, [facility] [address] [place] [address] Haydee Pop CRNP [address] [place] [address] 03/02/2024 4:00 PM EDT Imaging Radiology, [place] [address] [facility] [address] 06/08/2024 6:00 PM EST Office Visit [facility] [address] [place] [facility] [place] [address] Brian Domínguez MD [address] [place] [facility] [place] [address] Scheduled Procedures Name Priority Associated Diagnoses [...] 06/10/2021, 08/29/2020, 08/01/2020 CKD PHOS USE SMARTSET 10532 10/24/202310/05, 02/18/2022, 02/17/2022, Additional history exists *COPD [...] Additional history exists CKD HGB USE SMARTSET 65546 12/10/202412/10, 08/04/2023, 08/04/2023, Additional history exists O2 [...] this encounter Medical Devices Implanted Type Area Client Service Professional Device Identifier Shelf Expiration Date Model / Serial / Lot Jenna Rojas 6 M654g - [id number] Implanted:Qty: 3 on 02/15/2011 at OR [facility] N/A: Chest DO NOT USE 01/15/2015 M654G / / [id number] Band Magdy 225-241 - [id number] Implanted:Qty: 1 on 02/15/2011 at OR [facility] N/A: Chest [employer] 225-241 / / [id number] Sut Steel 6 M654g - [id number] Implanted:Qty: 1 on 02/15/2011 at OR [facility] N/A: Chest DO NOT USE 07/21/2015 M654G / / [id number] documented as of this encounter Advance Directives Documents on File Type Date Recorded 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
--- OUTSIDE RECORDS SUMMARY | 2024-03-03 08:06 | External Medical Summary | Summary of Care ---
Author Name Unknown Organization [facility] Address [address] [place] [address] Phone [phone] Care Team Providers Care Weaver Hand Loom Name Role Phone Brian Domínguez MD Primary Care Provider +1- [phone] Reason for Visit * Reason Onset Date Comments Home Health 10/28/2023 Encounter Details Date Type Department Care Team (Late st Contact Info) Description 10/28/2023 Telephone [facility] [address] [place] [address] Brian Domínguez MD [address] [place] [address] Home Health Allergies Active Allergy Reactions Criticality Noted Date Comments Propoxyphene Hcl Rash Low 10/29/2010 Fentanyl Diarrhea Low 04/26/2010 anxiety Methocarbamol Medium 10/05/2020 Other reaction(s): Delirium Methocarbamol Low 04/15/2007 Zolpidem Low 10/05/2020 Other reaction(s): Confusion documented as of this encounter (statuses as of 01/27/2024) Medications Medication Sig Dispensed Refills Start Date End Date Status venlafaxine XR (EFFEXOR XR) 150 MG [id number]:Dep ression Take 1 Cap by mouth daily. [...] Kit 11/18/2017 Active Blood Glucose Monitoring Suppl (KiromicTOUCH VERIO) w/Device KIT Use as directed. Use as directed. 1 Kit 10/31/2018 Active Spacer/Aero-Holding Chambers WISAM Use with inhaler. Wheezing/bronchit is. 1 Device 04/08/2019 Active Lancet Devices (ONETOUCH [...] minutes 25 Tablet 5 10/16/2023 Active Nystatin 565722 UNIT/GM External Powder (Nystop)Indications :Candidal intertrigo Apply topically to affected area 3 times a day. Apply to right breast until rash resolved. 30 g 10/16/2023 Active Nystatin 927675 UNIT/ML Mouth/Throat Suspension SWISH AND SWALLOW 5ML IN THE MORNING AND 5ML AT NOON AND 5 ML IN THE EVENING AND 5ML BEFORE BEDTIME, FOR THRUSH 240 mL 1 10/16/2023 Active Metoprolol Succinate ER 25 MG Oral Tablet Extended Release 24 Hour (toPROL XL)Indications:HTN, goal below 130/80 TAKE 1 TABLET BY MOUTH EVERY MORNING 90 Tablet 10/25/2023 Active documented as of this encounter (statuses [...] mg daily Coronary artery disease invo lving [place] coronary artery of [place] heart without angina pectoris 11/15/2021 Last Assessment & Plan: Stable. No angina -continue toprol, ASA and statin Seasonal allergies 11/15/2021 Recurrent UTI 10/07/2021 Last Assessment & Plan: Followed by urology Pt is supposed to be on methenamine--will need to clarify with dgt that she is giving this. 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 Symptoms: none Vitals: T 98.9 P 72 RR 18 BP 110/62 SP O2 99 Lung sounds clear Weight n/a has been educated to check wt daily. Blood sugar 177 Narrative: pt is on a lot of meds and has a lot of drug interactions. Advised that additional visit orders will be signed by PCP and to fax to the office for signature documented in this encounter Plan of Treatment Upcoming Encounters Date Type Department Care Team (Late st Contact Info) Description 02/02/2024 1:00 PM EDT Office Visit Urology, [facility] [address] [place] [address] Alfredo Panda MD [address] [place] [address] 02/05/2024 9:30 AM EDT Scheduled Telephone [facility], [facility] [address] [facility] [place] [address] Jesusita Saenz RDN [address] [facility] [place] [address] 02/09/2024 9:00 AM EDT Home Visit [facility], [facility] [address] [facility] [place] [address] Kirby Valenzuela PA-C [address] [place] [address] 02/25/2024 11:00 AM EDT Office Visit Cardiology, [facility] [place] [address] Haydee Pop CRNP [address] [facility] [place] [address] 03/02/2024 4:00 PM EDT Imaging Radiology, [place] [address] [facility] [place] [address] 06/08/2024 6:00 PM EST Office Visit Family [facility] [address] [place] [address] Brian Domínguez MD [address] [place] [address] Scheduled Procedures Name Priority Associated Diagnoses Date/Ti [...] 06/10/2021, 08/29/2020, 08/01/2020 CKD PHOS USE SMARTSET 68645 10/24/202310/05, 02/18/2022, 02/17/2022, Additional history exists *COPD [...] Additional history exists CKD HGB USE SMARTSET 97047 12/10/202412/10, 08/04/2023, 08/04/2023, Additional history exists O2 [...] this encounter Medical Devices Implanted Type Area Assistant Branch Manager Device Identifier Shelf Expiration Date Model / Serial / Lot Sut Bbo 6 M654g - [id number] Implanted:Qty: 3 on 02/15/2011 at OR [facility] N/A: Chest DO NOT USE 01/15/2015 M654G / / [id number] Band Magdy 225-241 - [id number] Implanted:Qty: 1 on 02/15/2011 at OR [facility] N/A: Chest [employer] 225-241 / / [id number] Jenna Rojas 6 M654g - [id number] Implanted:Qty: 1 on 02/15/2011 at OR [facility] N/A: Chest DO NOT USE 07/21/2015 M654G / / [id number] documented as of this encounter Advance Directives Documents on File Type Date Recorded 

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
--- OUTSIDE RECORDS SUMMARY | 2024-03-03 08:07 | External Medical Summary | Summary of Care ---
Author Name Unknown Organization [facility] Address [address] [facility] [place] [address] Phone [phone] Care Team Providers Care Manager Mobility Name Role Phone Brian Domínguez MD Primary Care Provider +1- [phone] Reason for Visit * Reason Onset Date Comments Med Request 01/14/2024 Encounter Details Date Type Department Care Team (Late st Contact Info) Description 01/14/2024 Telephone Gastroenterology, [facility] [address] [place] [address] Leonardo Reeves MD [address] [place] [address] Med Request Allergies Active Allergy Reactions Criticality Noted Date Comments Propoxyphene Hcl Rash Low 10/29/2010 Fentanyl Diarrhea Low 04/26/2010 anxiety Methocarbamol Medium 10/05/2020 Other reaction(s): Delirium Methocarbamol Low 04/15/2007 Zolpidem Low 10/05/2020 Other reaction(s): Confusion documented as of this encounter (statuses as of 01/14/2024) Medications Medication Sig Dispensed Refills Start Date End Date Status venlafaxine XR (EFFEXOR XR) 150 MG YS81Midhlyffnao:Dep ression Take 1 Cap by mouth daily. [...] Kit 11/18/2017 Active Blood Glucose Monitoring Suppl (ShoutlyTOUCH VERIO) w/Device KIT Use as directed. Use as directed. 1 Kit 10/31/2018 Active Spacer/Aero-Holding Chambers WISAM Use with inhaler. Wheezing/bronchitis . 1 Device 04/08/2019 Active Lancet Devices (ShoutlyTOUCH DELICA LANCING DEV) MISC Use four times [...] INSTRUCTIONS Please arrange for as needed Home fci visit for obtaining straight cath urine sample [...] minutes 25 Tablet 5 10/16/2023 Active Nystatin 110470 UNIT/GM External Powder (Nystop)Indications :Candidal intertrigo Apply topically to affected area 3 times a day. Apply to right breast until rash resolved. 30 g 10/16/2023 Active Nystatin 345281 UNIT/ML Mouth/Throat Suspension SWISH AND SWALLOW 5ML IN THE MORNING AND 5ML AT NOON AND 5 ML IN THE EVENING AND 5ML BEFORE BEDTIME, FOR THRUSH 240 mL 1 10/16/2023 Active Metoprolol Succinate ER 25 MG Oral Tablet Extended Release 24 Hour (toPROL XL)Indications:HTN, goal below 130/80 TAKE 1 TABLET BY MOUTH EVERY MORNING 90 Tablet 10/25/2023 Active Vitamin D (Ergocalciferol) 1.25 MG (53853 UT) Oral Capsule (Drisdol)Indication s:Vitamin D deficiency [...] ONCE DAILY 90 Tablet 3 12/12/2023 Active clonazePAM 0.5 MG Oral Tablet (KlonoPIN)Indicatio ns:Bipolar I disorder, most recent episode depressed, moderate (HCC) TAKE ONE TABLET BY MOUTH THREE TIMES DAILY 90 Tablet 12/16/2023 Active Potassium Chloride Mag ER 20 MEQ [...] Oral Tablet (Demadex)Indication s:Atherosclerotic heart disease of [place] coronary artery with other forms of angina pectoris (HCC),Hypertensive heart disease with chronic diastolic congestive heart failure (HCC) TAKE 1 TABLET BY MOUTH EVERY MORNING. MAY TAKE 1 ADDITIONAL TABLET NEEDED FOR SWELLING. 90 Tablet 1 01/06/2024 Active Tamsulosin HCl 0.4 MG Oral Capsule (Flomax) TAKE 1 CAPSULE BY MOUTH EVERY MORNING 90 Capsule 01/12/2024 Active documented as of this encounter (statuses as of 01/14/2024) Active Problems Problem Noted Date Diagnosed Date [...] mg daily Coronary artery disease invo lving [place] coronary artery of [place] heart without angina pectoris 11/15/2021 Last Assessment & Plan: Stable. No angina -continue toprol, ASA and statin Seasonal allergies 11/15/2021 Recurrent UTI 10/07/2021 Last Assessment & Plan: Followed by urology Pt is supposed to be on methenamine--will need to clarify with dgt that she is giving this. 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-certified detention deputy and ID Type 2 diabetes mellitus wit [...] terminal system operator (current) use of insulin 09/29/2019 Diabetic [...] 01/16/22 Moderate aortic stenosis 05/06/2018 Anxiety 08/05/2017 Zgwuofr-Kfnli-Zxphj disease 06/27/2015 Last Assessment & Plan: Frequent [...] as of this encounter (statuses as of 01/14/2024) Resolved Problems Problem Noted Date Diagnosed Date [...] liver 05/06/2018 Atherosclerotic heart diseas e of [place] coronary artery with other forms of angina [...] stenosis 10/31/2010 08/28/2018 Acute coronary syndrome 10/30/201001/04 BRANDON Research Other*[id number] 02/02/2010 04/18/2014 Overview: [place] Registry, Dr Joel CASAS Obesity, morbid (more [...] [facility] current use of ant icoagulant therapy 06/17/2006 [...] as of this encounter (statuses as of 01/14/2024) Immunizations Name Administration Dates Next Due COVID-19 [...] [address] [place] [address] Alfredo Panda MD [address] [place] [address] 01/26/2024 3:45 PM EDT Procedure Only Urology, [facility] [address] [place] [address] Alfredo Panda MD [address] [place] [address] 02/05/2024 9:30 AM EDT Scheduled Telephone [facility], [facility] [address] [facility] [address] Jesusita Saenz RDN [address] [facility] [place] [address] 02/09/2024 9:00 AM EDT Home Visit [facility], [facility] [address] [place] [address] Kirby Valenzuela PA-C [address] [place] [address] 02/25/2024 11:00 AM EDT Office Visit Cardiology, [facility] [address] [place] [address] Haydee Pop CRNP [address] [place] [address] 03/02/2024 4:00 PM EDT [address] [address] 06/08/2024 6:00 PM EST Office Visit [address] [place] [id number] Brian Domínguez MD [address] [place] [address] Scheduled Procedures Name Priority Associated [...] 06/10/2021, 08/29/2020, 08/01/2020 CKD PHOS USE SMARTSET 15146 10/24/202310/05, 02/18/2022, 02/17/2022, Additional history exists Influenza [...] Additional history exists CKD HGB USE SMARTSET 03986 12/10/202412/10, 08/04/2023, 08/04/2023, Additional history exists O2 [...] this encounter Medical Devices Implanted Type Area Deburr Operator Device Identifier Shelf Expiration Date Model / Serial / Lot Sut Steel 6 M654g - [id number] Implanted:Qty: 3 on 02/15/2011 at [place] [facility] N/A: Chest DO NOT USE 01/15/2015 M654G / / [id number] [employer] 225-241 - [id number] Implanted:Qty: 1 on 02/15/2011 at [place] [facility] N/A: Chest [employer] 225-241 / / [id number] Sut Steel 6 M654g - [id number] Implanted:Qty: 1 on 02/15/2011 at [place] [facility] N/A: Chest DO NOT USE 07/21/2015 M654G / / [id number] documented as of this encounter Advance Directives Documents on File Type Date Recorded 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 Communication Carolyn Elio Adult Child Health Care Agent Care Teams Manager Mobility Relationship Specialty Start Date End Date Brian Domínguez MD [address] [place] [address] PCP - General Family Medicine 07/16/17 documented as of this encounter
--- OUTSIDE RECORDS SUMMARY | 2024-03-03 08:07 | External Medical Summary | Summary of Care ---
Author Name Unknown Organization [facility] Address [address] [place] [address] Phone [phone] Care Team Providers Care Medical Writer Name Role Phone Brian Domínguez MD Primary Care Provider [phone]- [phone] Reason for Visit * Reason Onset Date Comments Post Procedure Problem 01/12/2024 Incision issues Encounter Details Date Type Department Care Team (Late st Contact Info) Description 01/12/2024 Telephone Urology, [facility] [address] [place] [address] Services, Scheduling [address] [place] [address] Post Procedure Problem (Incision issues ) Allergies Active Allergy Reactions Criticality Noted Date Comments Propoxyphene Hcl Rash Low 10/29/2010 Fentanyl Diarrhea Low 04/26/2010 anxiety Methocarbamol Medium 10/05/2020 Other reaction(s): Delirium Methocarbamol Low 04/15/2007 Zolpidem Low 10/05/2020 Other reaction(s): Confusion documented as of this encounter (statuses as of 01/12/2024) Medications Medication Sig Dispensed Refills Start Date End Date Status venlafaxine XR (EFFEXOR XR) 150 MG [id number]:Dep ression Take 1 Cap by mouth daily. [...] Kit 11/18/2017 Active Blood Glucose Monitoring Suppl (StarForce TechnologiesUCH VERIO) w/Device KIT Use as directed. Use as directed. 1 Kit 10/31/2018 Active Spacer/Aero-Holding Chambers WISAM Use with inhaler. Wheezing/bronchitis . 1 Device 04/08/2019 Active Lancet Devices (Decision PaceTOUCH DELICA LANCING DEV) MISC Use four times [...] minutes 25 Tablet 5 10/16/2023 Active Nystatin 625006 UNIT/GM External Powder (Nystop)Indications :Candidal intertrigo Apply topically to affected area 3 times a day. Apply to right breast until rash resolved. 30 g 10/16/2023 Active Nystatin 004057 UNIT/ML Mouth/Throat Suspension SWISH AND SWALLOW 5ML IN THE MORNING AND 5ML AT NOON AND 5 ML IN THE EVENING AND 5ML BEFORE BEDTIME, FOR THRUSH 240 mL 1 10/16/2023 Active Metoprolol Succinate ER 25 MG Oral Tablet Extended Release 24 Hour (toPROL XL)Indications:HTN, goal below 130/80 TAKE 1 TABLET BY MOUTH EVERY MORNING 90 Tablet 10/25/2023 Active Vitamin D (Ergocalciferol) 1.25 MG (58239 UT) Oral Capsule (Drisdol)Indication s:Vitamin D deficiency [...] as of this encounter (statuses as of 01/12/2024) Active Problems Problem Noted Date Diagnosed Date [...] mg daily Coronary artery disease invo lving [place] coronary artery of [place] heart without angina pectoris 11/15/2021 Last Assessment & Plan: Stable. No angina -continue toprol, ASA and statin Seasonal allergies 11/15/2021 Recurrent UTI 10/07/2021 Last Assessment & Plan: Followed by urology Pt is supposed to be on methenamine--will need to clarify with dgt that she is giving this. 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-arranger assembler and ID Type 2 diabetes mellitus wit [...] incontinence 03/27/2021 [facility] (current) use of insulin 09/29/2019 Diabetic gastroparesis [...] 01/16/22 Moderate aortic stenosis 05/06/2018 Anxiety 08/05/2017 Tzwqhhm-Tziyf-Ycmpo disease 06/27/2015 Last Assessment & Plan: Frequent [...] as of this encounter (statuses as of 01/12/2024) Resolved Problems Problem Noted Date Diagnosed Date [...] liver 05/06/2018 Atherosclerotic heart diseas e of [place] coronary [...] stenosis 10/31/2010 08/28/2018 Acute coronary syndrome 10/30/201001/04 [employer] Other*[id number] 02/02/2010 04/18/2014 Overview: [facility], Dr Joel [...] director long term care current use of ant [...] as of this encounter (statuses as of 01/12/2024) Immunizations Name Administration Dates Next Due COVID-19 [...] Telephone Encounter - Fani Starr LPN - 01/12/2024 1:17 PM EDT Melinda/patient aware and verbalized understanding. * Telephone Encounter - Fani Starr LPN - 01/12/2024 10:33 AM EDT Melinda-patients daughter said the patient is having yellowish/green tinted discharge. Pain on right lower abdomen, bladder spasms, denied fever. Melinda is going to send a picture through [employer]. * Telephone Encounter - Fani Starr LPN - 01/12/2024 10:01 AM EDT Patient returned call and states she is having bloody/clear fluid. Last night her tube just acting "weird". When I asked her to describe that she said occasional clogging in the tube. Yesterday she was having nausea and vomiting, denied fever. Per patient, Melinda is helping her with her dressings, she stepped out and will need to call back with further detailsl * Telephone Encounter - Fani Starr LPN - 01/12/2024 9:48 AM EDT lmtcb * Telephone Encounter - Andie Holder OSA - 01/12/2024 8:44 AM EDT Patient daughter calling in , pt is still having bleeding from the incision and a yellowish discharge as well, no fever but pain in lower abdomin, but ab pain could be from her gastro issues. Also leaking out urine from urethra sometimes, unable to transfer to office, TT sent as well with no response. Please call to advise, thanks documented in this encounter Plan of Treatment Upcoming Encounters Date Type Department Care Team (Late st Contact Info) Description 01/16/2024 9:45 AM EDT Office Visit Urology Kimberly Harmon [address] [place] [address] Alfredo Panda MD [address] [place] [address] 01/26/2024 3:45 PM EDT Procedure Only Urology, [facility] [address] [place] [address] Alfredo Panda MD [address] [place] [address] 02/05/2024 9:30 AM EDT Scheduled Telephone [facility], [facility] [address] [facility] [place] [address] Jesusita Saenz RDN [address] [facility] [place] [address] 02/09/2024 9:00 AM EDT Home Visit [facility], [facility] [address] [place] [address] Kirby Valenzuela PA-C [address] [place] [address] 02/25/2024 11:00 AM EDT Office Visit Cardiology, [facility] [address] [place] [address] [address] Haydee Pop CRNP [address] [place] [address] 03/02/2024 4:00 PM EDT Imaging Radiology, [address] [place] [address] 06/08/2024 6:00 PM EST [address] [address] Brian Domínguez MD [address] [place] [id number] Scheduled Procedures Name Priority Associated Diagnoses Date/Ti [...] 06/10/2021, 08/29/2020, 08/01/2020 CKD PHOS USE SMARTSET 70328 10/24/202310/05, 02/18/2022, 02/17/2022, Additional history exists Influenza [...] Additional history exists CKD HGB USE SMARTSET 64951 12/10/202412/10, 08/04/2023, 08/04/2023, Additional history exists O2 [...] this encounter Medical Devices Implanted Type Area Sprue Cutting Press Operator Device Identifier Shelf Expiration Date Model / Serial / Lot Sut Steel 6 M654g - [id number] Implanted:Qty: 3 on 02/15/2011 at OR [facility] N/A: Chest DO NOT USE 01/15/2015 M654G / / [id number] Band Magdy 225-241 - [id number] Implanted:Qty: 1 on 02/15/2011 at OR [facility] N/A: Chest [employer] 225-241 / / [id number] Sut Steel 6 M654g - [id number] Implanted:Qty: 1 on 02/15/2011 at OR [facility] N/A: Chest DO NOT USE 07/21/2015 M654G / / [id number] documented as of this encounter Advance Directives Documents on File Type Date Recorded Patient Medical Instrument Technician Expl anation POLST 05/06/2018 POLST * [...] Child Health Care Agent Care Teams Medical Writer Relationship Specialty Start Date End Date Brian Domínguez MD [address] [place] [address] PCP - General Family Medicine 07/16/17 documented as of this encounter
--- OUTSIDE RECORDS SUMMARY | 2024-03-03 08:07 | External Medical Summary | Summary of Care ---
Author Name Unknown Organization [facility] Address [address] [facility] [place] [address] Phone [phone] Care Team Providers Care Die Maker Apprentice Name Role Phone Carmen Sifuentes MD Primary Care Provider +1- [phone] Reason for Visit * Reason Onset Date Comments [facility]: Maintenance 01/01/2024 Encounter Details Date Type Department Care Team (Late st Contact Info) Description 01/01/2024 Telephone [facility], [facility] [address] [facility] [place] [address] [facility], Nurse [facility] [address] [facility] [place] [address] [facility]: Maintenance Allergies Active Allergy Reactions Criticality Noted Date Comments Propoxyphene Hcl Rash Low 10/29/2010 Fentanyl Diarrhea Low 04/26/2010 anxiety Methocarbamol Medium 10/05/2020 Other reaction(s): Delirium Methocarbamol Low 04/15/2007 Zolpidem Low 10/05/2020 Other reaction(s): Confusion documented as of this encounter (statuses as of 01/15/2024) Medications Medication Sig Dispensed Refills Start Date End Date Status venlafaxine XR (EFFEXOR XR) 150 MG [id number]:De pression Take 1 Cap by mouth daily. [...] 11/19/19 18 Active Blood Glucose Monitoring Suppl ([employer] VERIO) w/Device KIT Use as directed. Use as directed. 1 Kit 11/01/19 19 Active Spacer/Aero-Holdin g Chambers WISAM Use with inhaler. Wheezing/bronchit is. 1 Device 04/08/20 19 Active Lancet Devices (ProtoStarTOUCH DELICA LANCING DEV) MISC Use four times [...] 06/25/23. 1 Each 1 06/24/20 23 Active Xifaxan 550 MG Oral Tablet (rifAXIMin)Indicat ions:GONZALEZ (nonalcoholic steatohepatitis),C hronic liver disease and cirrhosis (HCC),Hepatic encephalopathy (HCC) TAKE 1 TABLET BY MOUTH TWICE DAILY 60 Tablet 5 07/16/19 24 Active Famotidine 40 MG Oral Tablet (Pepcid)Indication [...] BEFORE BREAKFAST AND OTHER MEDICATIONS 90 Tablet 09/08/19 24 Active PEG 3350 17 GM/SCOOP Oral Powder DISSOLVE ONE HEAPING TABLESPOON IN 8 OZ OF WATER OR JUICE DAILY NEEDED FOR CONSTIPATION. 510 g 09/22/19 24 Active Spironolactone 50 MG Oral Tablet (Aldactone)Indicat ions:GONZALEZ (nonalcoholic steatohepatitis),P ortal hypertension (HCC),Chronic liver disease and cirrhosis (HCC),Portal hypertensive gastropathy (HCC) TAKE ONE TABLET BY MOUTH IN THE MORNING AND ONE TABLET BEFORE BEDTIME 180 Tablet 1 10/07/19 24 Active Gabapentin 300 MG Oral Capsule (Neurontin)Indicat ions:Lumbar spondylosis TAKE 1 CAPSULE BY MOUTH TWICE DAILY 60 Capsule 10/14/19 24 Active Nitroglycerin 0.4 MG Sublingual Tablet Sublingual (Nitrostat)Indicat ions:Chronic coronary artery disease Place 1 Tablet under the tongue every 5 minutes as needed for Pain, Chest. Max dose 3 tablets in 15 minutes 25 Tablet 5 10/16/19 24 Active Nystatin 001671 UNIT/GM External Powder (Nystop)Indication s:Candidal intertrigo Apply topically to affected area 3 times a day. Apply to right breast until rash resolved. 30 g 10/16/19 24 Active Nystatin 266099 UNIT/ML Mouth/Throat Suspension SWISH AND SWALLOW 5ML [...] 24 Active Vitamin D (Ergocalciferol) 1.25 MG (93527 UT) Oral Capsule (Drisdol)Indicatio ns:Vitamin D deficiency [...] Pain, Severe. 8 Tablet 12/31/19 24 Active Ozempic (2 MG/DOSE) 8 MG/3ML Subcutaneous Solution Pen-injector (Semaglutide (2 MG/DOSE))Indicatio ns:Type 2 diabetes mellitus with diabetic neuropathy, with long-term current use of insulin (HCC) Inject 2 mg subcutaneous once per week 3 mL 5 01/01/20 24 Active Torsemide 20 MG Oral Tablet (Demadex)Indicatio ns:Atherosclerotic heart disease of [place] coronary artery with other forms of angina pectoris (HCC),Hypertensive heart disease with chronic diastolic congestive heart failure (HCC) TAKE 1 TABLET BY MOUTH EVERY MORNING. MAY TAKE 1 ADDITIONAL TABLET NEEDED FOR SWELLING. 90 Tablet 3 07/08/19 24 024 Discontinued Trulicity 4.5 MG/0.5ML Subcutaneous Solution Pen-injector (Dulaglutide) inject 4.5mg under the skin once per week 6 mL 1 09/08/19 24 024 Discontinued(Me dication/Dose Changed) Tamsulosin HCl 0.4 MG Oral Capsule (Flomax) TAKE 1 CAPSULE BY MOUTH EVERY MORNING 90 Capsule 10/15/19 24 024 Discontinued clonazePAM 0.5 MG Oral Tablet (KlonoPIN)Indicati ons:Bipolar I disorder, most recent episode depressed, moderate (HCC) TAKE ONE TABLET BY MOUTH THREE TIMES DAILY 90 Tablet 12/16/19 24 024 Discontinued(Re fill) Cefdinir 300 MG Oral Capsule (Omnicef) Take 1 Capsule by mouth in the morning and 1 Capsule before bedtime. Do all this for 10 days. 20 Capsule 12/24/19 24 024 Additional Information Patient not taking.Reported on 12/24/2023 documented as of this encounter (statuses as of 01/15/2024) Active Problems Problem Noted Date Diagnosed Date [...] mg daily Coronary artery disease invo lving [place] coronary artery of [place] heart without angina pectoris 11/15/2021 Last Assessment & Plan: Stable. No angina -continue toprol, ASA and statin Seasonal allergies 11/15/2021 Recurrent UTI 10/07/2021 Last Assessment & Plan: Followed by urology Pt is supposed to be on methenamine--will need to clarify with dgt that she is giving this. 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 trucker and ID Type 2 diabetes mellitus wit [...] 01/16/22 Moderate aortic stenosis 05/06/2018 Anxiety 08/05/2017 Enmhqrz-Mufba-Lqpmv disease 06/27/2015 Last Assessment & Plan: Frequent [...] as of this encounter (statuses as of 01/15/2024) Resolved Problems Problem Noted Date Diagnosed Date [...] liver 05/06/2018 Atherosclerotic heart diseas e of [place] coronary artery with other forms of angina [...] stenosis 10/31/2010 08/28/2018 Acute coronary syndrome 10/30/201001/04 [place] Research Other*[id number] 02/02/2010 04/18/2014 Overview: [place] [facility], Dr Joel [...] as of this encounter (statuses as of 01/15/2024) Immunizations Name Administration Dates Next Due COVID-19 [...] Telephone Encounter - Pinky Perry LPN - 01/15/2024 6:21 PM EDT Spoke with pt. Her urine is normal yellow color, but she is still having discomfort after her surgery. Pt states she has an appointment with her Urologist who did the surgery. Also left message on daughter's fully identified answering machine regarding what was said to her mother and what her mother said to me. * Telephone Encounter - Pinky Perry LPN - 01/09/2024 2:06 PM EDT Letter sent to pt to contact the office. * Telephone Encounter - Radha Jarquin LPN - 01/09/2024 12:42 PM EDT Left message on machine * Telephone Encounter - Amberly Cherry LPN - 01/02/2024 8:25 AM EDT Attempted to call patients daughter back, no answer lm that I was calling in regards to patient andthat I would send a MyG message as well. * Addendum Note - Carmen Sifuentes MD - 01/01/2024 10:21 PM EDTAddended by: CARMEN SIFUENTES on: 01/01/2024 10:21 PM Modules accepted: Orders * Telephone Encounter - Carmen Sifuentes MD - 01/01/2024 10:19 PM EDT Agree that urologic questions best answered by urology at this point. I do not need an extension of the cefdinir. It is fine with me for her to use ozempic in place of the trulicity since she cannot get trulicity at the pharmacy. Ozempic sent erx. * Telephone Encounter - Pinky Morales RN - 01/01/2024 12:09 PM EDT Call received from the pt's daughter Carolyn. Carolyn states that the pt had a suprapubic cath placedyesterday and notes pt having wet incontinence briefs. Carolyn, unsure if it is abnormal for a pt tourinate with a cath in place. Carolyn also asking if pt needs to be on a 2nd course of cefdinir. States that pt was told to continue to take cefdinir but today is the last day of her script and pt would need a new script if the medication needs to be continued. Carolyn reports pt draining about 300 cc of orange colored urine. Pt on pyridium. Noted some small clots in the urine bag Pt is afebrile 5/10 pain noted. Took 1/2 tab percocet today Reviewed pt's dc instructions per after visit summary with Carolyn and directed her to call urology office with further questions. Will forward message to Dr. Panda for follow up with pt regarding post procedure questions. Pt also reporting that the pt is ordered Trulicity for her diabetes and the pharmacy has been out of stock on med for over 2 months. Pt is not taking anything as a replacement for the Trulicity. Daughter asking if med should be changed to something else like Ozempic which she states that the pharmacy does have in stock. Will forward pt's question to PCP office. documented in this encounter Plan of Treatment Upcoming Encounters Date Type Department Care Team (Late st Contact Info) Description 01/16/2024 9:45 AM EDT Office Visit Urology Kimberly Harmon [address] [place] [address] Alfredo Panda MD [address] [place] [address] 01/26/2024 3:45 PM EDT Procedure Only Urology, [facility] [address] [address] Alfredo Panda MD [address] [place] [address] 02/05/2024 9:30 AM EDT Scheduled Telephone [facility], [facility] [address] [facility] [place] [address] Jesusita Saenz, RDN [address] [facility] [place] [address] 02/09/2024 9:00 AM EDT Home Visit [facility], [facility] [address] [place] [address] Kirby Valenzuela PA-C [address] [place] [address] 02/25/2024 11:00 AM EDT Office Visit Cardiology, [facility] [address] [place] [address] Haydee Pop CRNP [address] [place] [address] 03/02/2024 4:00 PM EDT Imaging Radiology, [address] [place] [address] 06/08/2024 6:00 PM EST Office Visit Family [facility] [place] [address] [place] [address] Carmen Sifuentes MD [address] [place] [address] Scheduled Procedures Name Priority Associated Diagnoses Date/Ti [...] 06/10/2021, 08/29/2020, 08/01/2020 CKD PHOS USE SMARTSET 80361 10/24/202310/05, 02/18/2022, 02/17/2022, Additional history exists Influenza [...] Additional history exists CKD HGB USE SMARTSET 39652 12/10/202412/10, 08/04/2023, 08/04/2023, Additional history exists O2 [...] this encounter Medical Devices Implanted Type Area Production Operations Engineer Device Identifier Shelf Expiration Date Model / Serial / Lot Sut Steel 6 M654g - [id number] Implanted:Qty: 3 on 02/15/2011 at OR [facility] N/A: Chest DO NOT USE 01/15/2015 M654G / / [id number] [facility] 225-241 - [id number] Implanted:Qty: 1 on 02/15/2011 at OR [facility] N/A: Chest [employer] 225-241 / / [id number] Sut Steel 6 M654g - [id number] Implanted:Qty: 1 on 02/15/2011 at OR [facility] N/A: Chest DO NOT USE 07/21/2015 M654G / / [id number] documented as of this encounter Visit Diagnoses Diagnosis Type 2 diabetes mellitus with diabetic neuropathy, with long-term current use of insulin (HCC)- Primary documented in this encounter Advance Directives Documents on File Type Date Recorded Patient Developmental Training Counselor Expl anation POLST 05/06/2018 POLST * Full [...] Adult Child Health Care Agent Care Teams Die Maker Apprentice Relationship Specialty Start Date End Date Carmen Sifuentes MD [address] [place] [address] PCP - General Family Medicine 07/16/17 documented as of this encounter
--- OUTSIDE RECORDS SUMMARY | 2024-03-03 08:07 | External Medical Summary | Summary of Care ---
Author Name Unknown Organization [facility] Address [address] [place] [address] Phone [phone] Care Team Providers Care Weaver Narrow Fabrics Name Role Phone Carmen Sifuentes MD Primary Care Provider +1- [phone] Reason for Visit * Reason Onset Date Comments Medication Refill 01/14/2024 Encounter Details Date Type Department Care Team (Late st Contact Info) Description 01/14/2024 Refill [facility] [address] [place] [address] Carmen Sifuentes MD [address] [place] [address] Bipolar I disorder, most recent [...] Status venlafaxine XR (EFFEXOR XR) 150 MG SY25Imskhkmyjfg:Dep ression Take 1 Cap by mouth daily. [...] Kit 8 Active Blood Glucose Monitoring Suppl (Floq VERIO) w/Device KIT Use as directed. Use as directed. 1 Kit 9 Active Spacer/Aero-Holding Chambers WISAM Use with inhaler. Wheezing/bronchiti s. 1 Device 9 Active Lancet Devices (Floq DELICA LANCING DEV) MISC Use four times [...] FOR NAUSEA 60 Tablet 5 3 Active Budesonide-Formoter ol Fumarate 160-4.5 [...] INSTRUCTIONS Please arrange for as needed Home shelter visit for obtaining straight cath urine sample for 06/25/23. 1 Each 1 3 Active Xifaxan 550 MG Oral Tablet (rifAXIMin)Indicati ons:GONZALEZ (nonalcoholic steatohepatitis),Ch ronic liver disease and cirrhosis (HCC),Hepatic encephalopathy (HCC) TAKE 1 TABLET BY MOUTH TWICE DAILY 60 Tablet 5 4 Active Famotidine 40 MG Oral Tablet (Pepcid)Indications [...] other night 42.5 g 3 4 Active Levothyroxine Sodium 88 MCG Oral Tablet [...] minutes 25 Tablet 5 4 Active Nystatin 793519 UNIT/GM External Powder (Nystop)Indications :Candidal intertrigo Apply topically to affected area 3 times a day. Apply to right breast until rash resolved. 30 g 4 Active Nystatin 492662 UNIT/ML Mouth/Throat Suspension SWISH AND SWALLOW 5ML IN THE MORNING AND 5ML AT NOON AND 5 ML IN THE EVENING AND 5ML BEFORE BEDTIME, FOR THRUSH 240 mL 1 4 Active Metoprolol Succinate ER 25 MG Oral Tablet Extended Release 24 Hour (toPROL XL)Indications:HTN, goal below 130/80 TAKE 1 TABLET BY MOUTH EVERY MORNING 90 Tablet 4 Active Vitamin D (Ergocalciferol) 1.25 MG (46376 UT) Oral Capsule (Drisdol)Indication s:Vitamin D deficiency [...] MOUTH THREE TIMES DAILY 90 Tablet 4 01/14/20 24 Discontinu ed(Refill) documented as of this [...] mg daily Coronary artery disease invo lving [place] coronary artery of [place] heart without angina pectoris 11/15/2021 Last Assessment & Plan: Stable. No angina -continue toprol, ASA and statin Seasonal allergies 11/15/2021 Recurrent UTI 10/07/2021 Last Assessment & Plan: Followed by urology Pt is supposed to be on methenamine--will need to clarify with dgt that she is giving this. 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-washer cutter and ID Type 2 diabetes mellitus [...] 01/16/22 Moderate aortic stenosis 05/06/2018 Anxiety 08/05/2017 Xxxeqyo-Ujvya-Prwnr disease 06/27/2015 Last Assessment & Plan: Frequent [...] stenosis 10/31/2010 08/28/2018 Acute coronary syndrome 10/30/201001/04 [place] Research Other*[id number] 02/02/2010 04/18/2014 Overview: [place] Registry, Dr Joel CASAS Obesity, morbid (more [...] Duplicate Protocol #2. 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/2014 technician terminal and repeater current use of ant icoagulant therapy 06/17/2006 [...] Telephone Encounter - Carmen Sifuentes MD - 01/14/2024 3:41 PM EDTSigned Prescriptions: Disp Refills clonazePAM 0.5 MG Oral Tablet (KlonoPIN) 90 Tab*0 Sig: TAKE ONE TABLET BY MOUTH THREE TIMES DAILYAuthorizing Provider: CARMEN SIFUENTES * Telephone Encounter - Lashay Patel [facility] - 01/14/2024 3:38 PM EDT Pending Prescriptions: Disp Refills clonazePAM 0.5 MG Oral Tablet (KlonoPIN) 90 Tab*0 Sig: TAKE ONE TABLET BY MOUTH THREE TIMES DAILY * Telephone Encounter - Lashay Patel [facility] - 01/14/2024 3:37 PM EDT I have reviewed the patients controlled substance dispensing history in the Prescription Drug Monitoring Program in compliance with the [facility] regulations before prescribing a controlled substance. PDMP checked on 01/14/2024. Pending Prescriptions: Disp Refills clonazePAM 0.5 MG Oral Tablet (KlonoPIN) 90 Tab*0 Sig: TAKE ONE TABLET BY MOUTH THREE TIMES DAILY Last Visit: 11/18/2023 (in office), 06/20/2023 (telemedicine) Next Visit: 06/08/2024 Date medication was last filled: 12/16/23 Date medication is due for refill: 01/15/24 Pharmacy: [id number] [place] Is this request for a controlled substance? Yes and Urine Drug Screen Not completed Toxicology results: No results found. However, due to the size of the patient record, not all encounters were searched.Please check Results Review for a complete set of results. Please approve if appropriate. Thank you, Lashay Patel PharmD, RADHA Clinical Pharmacist [facility] ([facility]) 01/14/24 3:37 PM [phone] * Telephone Encounter - Al Maynard PHARM Tech - 01/14/2024 1:59 PM EDT Pt is asking high priority. Did you pend patient's preferred pharmacy and medication before forwarding?yes Pharmacy: [id number] Pending Prescriptions: Disp Refills clonazePAM 0.5 MG Oral Tablet (KlonoPIN) 90 Tab*0 Sig: TAKE ONE TABLET BY MOUTH THREE TIMES DAILY Last Visit: 11/18/2023 (in office), 06/20/2023 (telemedicine) Next Visit: 06/08/2024 If no future appointments scheduled, and last appointment is greater than a year ago, please schedule patient for a follow-up appointment Last date the medication was ordered: 12/16/23 Is this request for a controlled substance?Yes, What was the last refill date 12/16/23 w/ quantity 90 and dosage 0.5 mg and Urine Drug [...] Visit Urology Kimberly Harmon [address] [address] Alfredo Panda MD [address] [address] 01/26/2024 3:45 PM EDT Procedure Only Urology, [facility] [address] [place] [address] Alfredo Panda MD [address] [address] 02/05/2024 9:30 AM EDT Scheduled Telephone [facility], [facility] [address] [place] [address] Jesusita Saenz, KELLYN [address] [place] [address] 02/09/2024 9:00 AM EDT Home Visit [facility], [facility] [address] [place] [address] Kirby Valenzuela PA-C [address] [place] [address] 02/25/2024 11:00 AM EDT Office Visit Cardiology, [facility] [place] [address] Haydee Pop CRNP [address] [place] [address] 03/02/2024 4:00 PM EDT Imaging Radiology, [place] [address] [place] [address] 06/08/2024 6:00 PM EST Office Visit Family [facility] [address] [place] [address] Carmen Sifuentes MD [address] [place] [address] Scheduled Procedures Name Priority Associated Diagnoses Date/Ti [...] 06/10/2021, 08/29/2020, 08/01/2020 CKD PHOS USE SMARTSET 21496 10/24/202310/05, 02/18/2022, 02/17/2022, Additional history exists Influenza [...] Additional history exists CKD HGB USE SMARTSET 45052 12/10/202412/10, 08/04/2023, 08/04/2023, Additional history exists O2 [...] this encounter Medical Devices Implanted Type Area Public Information Officer Device Identifier Shelf Expiration Date Model / Serial / Lot Jenna Rojas 6 M654g - [id number] Implanted:Q[place] 3 on [place] [facility] [place] Chest DO NOT USE 01/15/2015 M654G / / [id number] Band Magdy 225-241 - [id number] Implanted:Qty: 1 on 02/15/2011 [place] [facility]: Chest [employer] 225-241 / / [id number] Sut Steel 6 M654g - [id number] Implanted:Qty: 1 on 02/15/2011 [place] [facility]A: Chest DO NOT USE 07/21/2015 M654G / / [id number] documented as of this encounter Visit Diagnoses Diagnosis Bipolar I disorder, most recent episode depressed, moderate (HCC) Bipolar I disorder, most recent episode (or current) depressed, moderate documented in this encounter Advance Directives Documents on File Type Date Recorded 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
--- OUTSIDE RECORDS SUMMARY | 2024-03-03 08:07 | External Medical Summary | Summary of Care ---
Author Name Unknown Organization [facility] Address [address] [place] [address] Phone [phone] Care Team Providers Care Knitting Machine Operator Name Role Phone Brian Domínguez MD Primary Care Provider +1- [phone] Reason for Visit * Reason Onset Date Comments FYI 01/15/2024 Encounter Details Date Type Department Care Team (Late st Contact Info) Description 01/15/2024 Telephone [facility] [address] [place] [address] Brian Domínguez MD [address] [place] [address] FYI Allergies Active Allergy Reactions Criticality Noted Date Comments Propoxyphene Hcl Rash Low 10/29/2010 Fentanyl Diarrhea Low 04/26/2010 anxiety Methocarbamol Medium 10/05/2020 Other reaction(s): Delirium Methocarbamol Low 04/15/2007 Zolpidem Low 10/05/2020 Other reaction(s): Confusion documented as of this encounter (statuses as of 01/15/2024) Medications Medication Sig Dispensed Refills Start Date End Date Status venlafaxine XR (EFFEXOR XR) 150 MG OG33Mdabfqczuao:Dep ression Take 1 Cap by mouth daily. [...] Kit 11/18/2017 Active Blood Glucose Monitoring Suppl (DewMobileTOUCH VERIO) w/Device KIT Use as directed. Use [...] minutes 25 Tablet 5 10/16/2023 Active Nystatin 630686 UNIT/GM External Powder (Nystop)Indications :Candidal intertrigo Apply topically to affected area 3 times a day. Apply to right breast until rash resolved. 30 g 10/16/2023 Active Nystatin 947294 UNIT/ML Mouth/Throat Suspension SWISH AND SWALLOW 5ML IN THE MORNING AND 5ML AT NOON AND 5 ML IN THE EVENING AND 5ML BEFORE BEDTIME, FOR THRUSH 240 mL 1 10/16/2023 Active Metoprolol Succinate ER 25 MG Oral Tablet Extended Release 24 Hour (toPROL XL)Indications:HTN, goal below 130/80 TAKE 1 TABLET BY MOUTH EVERY MORNING 90 Tablet 10/25/2023 Active Vitamin D (Ergocalciferol) 1.25 MG (35358 UT) Oral Capsule (Drisdol)Indication s:Vitamin D deficiency [...] mg daily Coronary artery disease invo lving [place] coronary artery of [place] heart without angina pectoris 11/15/2021 Last Assessment & Plan: Stable. No angina -continue toprol, ASA and statin Seasonal allergies 11/15/2021 Recurrent UTI 10/07/2021 Last Assessment & Plan: Followed by urology Pt is supposed to be on methenamine--will need to clarify with dgt that she is giving this. 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/2014 ferry terminal agent current use of ant icoagulant therapy 06/17/2006 [...] No 11/24/2023 Does the household have a holy cross hospitallar source of income? (Household - for ages [...] Encounter - Pinky Perry LPN - 01/15/2024 6:25 PM EDT See encounter from 01/01/2024 "[facility]" * Telephone Encounter - Bisi Kerns OSA - 01/15/2024 1:34 PM EDT Patient called in regarding letter she received in the mail, unsure what it was regarding asking for a call back at [phone] documented in this encounter Plan of Treatment Upcoming Encounters Date Type Department Care Team (Late st Contact Info) Description 01/16/2024 9:45 AM EDT Office Visit Urology Kimberly Harmon [address] [facility] [address] [place] [address] Alfredo Panda MD [address] [address] 01/26/2024 3:45 PM EDT Procedure Only Urology, [facility] [address] [place] [address] Alfredo Panda MD [address] [address] 02/05/2024 9:30 AM EDT Scheduled Telephone [facility], [facility] [address] [facility] [place] [address] Jesusita Saenz, KELLYN [address] [place] [address] 02/09/2024 9:00 AM EDT Home Visit [facility], [facility] [address] [address] Kirby Valenzuela PA-C [address] [address] 02/25/2024 11:00 AM EDT Office Visit Cardiology, [facility] [address] [facility] [place] [address] Haydee Pop CRNP [address] [place] [address] 03/02/2024 4:00 PM EDT Imaging Radiology, [facility] [address] [facility] [address] 06/08/2024 6:00 PM EST Office Visit Family [facility] [address] [place] [address] Brian Domínguez MD [address] [place] [address] Scheduled Procedures Name Priority Associated Diagnoses Date/Ti [...] 06/10/2021, 08/29/2020, 08/01/2020 CKD PHOS USE SMARTSET 74138 10/24/202310/05, 02/18/2022, 02/17/2022, Additional history exists Influenza [...] Additional history exists CKD HGB USE SMARTSET 42754 12/10/202412/10, 08/04/2023, 08/04/2023, Additional history exists O2 [...] this encounter Medical Devices Implanted Type Area Pile Driving Superintendent Device Identifier Shelf Expiration Date Model / Serial / Lot Sut Steel 6 M654g - [id number] Implanted:Qty: 3 on 02/15/2011 at [place] [facility] [place]/A: Chest DO NOT USE 01/15/2015 M654G / / [id number] Gaston Curran 225-888 - [id number] Implanted:Qty: 1 on 02/15/2011 at [place] [facility] [place] N/A: Chest [employer] 225-241 / / [id number] Sut Steel 6 M654g - [id number] Implanted:Qty: 1 on 02/15/2011 at [place] [facility] [place] N/A: Chest DO NOT USE 07/21/2015 M654G / / [id number] documented as of this encounter Advance Directives Documents on File Type Date Recorded 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 Communication Carolyn Ballard Adult Child Health Care Agent Care Teams Knitting Machine Operator Relationship Specialty Start Date End Date Brian Domínguez MD [address] [place] [facility] [place] [address] PCP - General Family Medicine 07/16/17 documented as of this encounter
--- OUTSIDE RECORDS SUMMARY | 2024-03-03 08:08 | External Medical Summary | Summary of Care ---
Author Name Unknown Organization [facility] Address [address] [place] [address] Phone [phone] Care Team Providers Care Design Engineering Specialist Name Role Phone Brian Domínguez MD Primary Care Provider +1- [phone] Reason for Visit * Reason Onset Date Comments Post Procedure Problem 01/12/2024 Incision issues Encounter Details Date Type Department Care Team (Late st Contact Info) Description 01/12/2024 Telephone Urology, [facility] [address] [place] [address] Services, Scheduling [address] [place] [address] Post Procedure Problem (Incision issues ) Allergies [...] Status venlafaxine XR (EFFEXOR XR) 150 MG UR15Vuyffypgcle:Dep ression Take 1 Cap by mouth daily. [...] Kit 11/18/2017 Active Blood Glucose Monitoring Suppl (4Cable TVUCH VERIO) w/Device KIT Use as directed. Use as directed. 1 Kit 10/31/2018 Active Spacer/Aero-Holding Chambers WISAM Use with inhaler. Wheezing/bronchitis . 1 Device 04/08/2019 Active Lancet Devices (Qijia Science and TechnologyTOUCH DELICA LANCING DEV) MISC Use four times [...] minutes 25 Tablet 5 10/16/2023 Active Nystatin 267073 UNIT/GM External Powder (Nystop)Indications :Candidal intertrigo Apply topically to affected area 3 times a day. Apply to right breast until rash resolved. 30 g 10/16/2023 Active Nystatin 478693 UNIT/ML Mouth/Throat Suspension SWISH AND SWALLOW 5ML IN THE MORNING AND 5ML AT NOON AND 5 ML IN THE EVENING AND 5ML BEFORE BEDTIME, FOR THRUSH 240 mL 1 10/16/2023 Active Metoprolol Succinate ER 25 MG Oral Tablet Extended Release 24 Hour (toPROL XL)Indications:HTN, goal below 130/80 TAKE 1 TABLET BY MOUTH EVERY MORNING 90 Tablet 10/25/2023 Active Vitamin D (Ergocalciferol) 1.25 MG (99921 UT) Oral Capsule (Drisdol)Indication s:Vitamin D deficiency [...] Tablet (Demadex)Indication s:Atherosclerotic heart disease of [place] coronary artery with other forms of angina [...] mg daily Coronary artery disease invo lving [place] coronary artery of [place] heart without angina pectoris 11/15/2021 Last Assessment & Plan: Stable. No angina -continue toprol, ASA and statin Seasonal allergies 11/15/2021 Recurrent UTI 10/07/2021 Last Assessment & Plan: Followed by urology Pt is supposed to be on methenamine--will need to clarify with dgt that she is giving this. 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-mixer diamond powder and ID Type 2 diabetes mellitus wit [...] 03/27/2021 senior care (current) use of insulin 09/29/2019 Diabetic [...] 01/16/22 Moderate aortic stenosis 05/06/2018 Anxiety 08/05/2017 Wufltlm-Fntxq-Tlgrq disease 06/27/2015 Last Assessment & Plan: Frequent [...] 05/06/2018 Atherosclerotic heart diseas e of [place] coronary artery with other forms of angina [...] stenosis 10/31/2010 08/28/2018 Acute coronary syndrome 10/30/201001/04 [place] Research Other*[id number] 02/02/2010 04/18/2014 Overview: [place] Registry, Dr Joel [...] Protocol #2. 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/2014 termite helper current use of ant icoagulant therapy 06/17/2006 [...] Visit Urology Kimberly Harmon [address] [place] [address] [place] [address] Alfredo Panda MD [address] [address] 01/26/2024 3:45 PM EDT Procedure Only Urology, [facility] [address] [address] Alfredo Panda MD [address] [address] 02/05/2024 9:30 AM EDT Scheduled Telephone [facility], [facility] [address] [facility] [place] [address] Jesusita Saenz, RDN [address] [facility] [place] [address] 02/09/2024 9:00 AM EDT Home Visit [facility], [facility] [place] [address] Kirby Valenzuela PA-C [address] [place] [address] 02/25/2024 11:00 AM EDT Office Visit Cardiology, [facility] [address] [facility] [place] [address] Haydee Pop CRNP [address] [place] [address] 03/02/2024 4:00 PM EDT Imaging Radiology, [place] [address] [place] [address] 06/08/2024 6:00 PM EST Office Visit Family [facility] [address] [place] [address] Brian Domínguez MD [address] [place] [address] Scheduled Procedures Name Priority Associated Diagnoses Date/Ti [...] 06/10/2021, 08/29/2020, 08/01/2020 CKD PHOS USE SMARTSET 74606 10/24/202310/05, 02/18/2022, 02/17/2022, Additional history exists Influenza [...] Additional history exists CKD HGB USE SMARTSET 87363 12/10/202412/10, 08/04/2023, 08/04/2023, Additional history exists O2 [...] this encounter Medical Devices Implanted Type Area Feather Boner Device Identifier Shelf Expiration Date Model / Serial / Lot Jenna Rojas 6 M654g - [id number] [place]planted:[place] 3 [place] [facility] [place] Chest DO NOT USE 01/15/2015 M654G / / [id number] Band Magdy 225-241 - [id number] Implanted:Qty: 1 [place]2011 [place] [facility] [place]: Chest [employer] 225-241 / / [id number] Sut Steel 6 M654g - [id number] Implanted:Qty: 1 on [place]2011 [place] [facility] [place]: Chest DO NOT USE 07/21/2015 M654G / / [id number] documented as of this encounter Advance Directives Documents on File Type Date Recorded 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
--- OUTSIDE RECORDS SUMMARY | 2024-03-03 08:08 | External Medical Summary | Summary of Care ---
Author Name Unknown Organization [facility] Address [address] [place] [address] Phone [phone] Care Team Providers Care Hemp Fiber Taker Off Name Role Phone Brian Domínguez MD Primary Care Provider +1- [phone] Reason for Visit * Reason Comments eRx-Medication Refill Encounter Details Date Type Department Care Team (Late st Contact Info) Description 01/09/2024 Refill Urology, [facility] [address] [facility] [place] [address] Alfredo Panda MD [address] [place] [address] Allergies Active Allergy Reactions Criticality Noted Date Comments Propoxyphene Hcl Rash Low 10/29/2010 Fentanyl Diarrhea Low 04/26/2010 anxiety Methocarbamol Medium 10/05/2020 Other reaction(s): Delirium Methocarbamol Low 04/15/2007 Zolpidem Low 10/05/2020 Other reaction(s): Confusion documented as of this encounter (statuses as of 01/12/2024) Medications Medication Sig Dispensed Refills Start Date End Date Status venlafaxine XR (EFFEXOR XR) 150 MG [id number]:De pression Take 1 Cap by mouth daily. [...] 11/19/19 18 Active Blood Glucose Monitoring Suppl ([employer] VERIO) w/Device KIT Use as directed. Use as directed. 1 Kit 11/01/19 19 Active Spacer/Aero-Holdin g Chambers WISAM Use with inhaler. Wheezing/bronchiti s. 1 Device 04/08/20 19 Active Lancet Devices (SnoobeTOUCH DELICA LANCING DEV) MISC Use four times [...] every morning and every evening 180 Tablet 08/14/19 24 Active Estradiol 0.1 MG/GM Vaginal [...] AND ONE TABLET BEFORE BEDTIME 180 Tablet 10/07/19 24 Active Gabapentin 300 MG Oral Capsule (Neurontin)Indicat ions:Lumbar spondylosis TAKE 1 CAPSULE BY MOUTH TWICE DAILY 60 Capsule 10/14/19 24 Active Nitroglycerin 0.4 MG Sublingual Tablet Sublingual (Nitrostat)Indicat ions:Chronic coronary artery disease Place 1 Tablet under the tongue every 5 minutes as needed for Pain, Chest. Max dose 3 tablets in 15 minutes 25 Tablet 5 10/16/19 24 Active Nystatin 818989 UNIT/GM External Powder (Nystop)Indication s:Candidal intertrigo Apply topically to affected area 3 times a day. Apply to right breast until rash resolved. 30 g 10/16/19 24 Active Nystatin 031865 UNIT/ML Mouth/Throat Suspension SWISH AND SWALLOW 5ML [...] 24 Active Vitamin D (Ergocalciferol) 1.25 MG (03645 UT) Oral Capsule (Drisdol)Indicatio ns:Vitamin D deficiency [...] DAILY 90 Tablet 3 12/12/19 24 Active clonazePAM 0.5 MG Oral Tablet (KlonoPIN)Indicati ons:Bipolar I disorder, most recent episode depressed, moderate (HCC) TAKE ONE TABLET BY MOUTH THREE TIMES DAILY 90 Tablet 12/16/19 24 Active Potassium Chloride Mag ER 20 [...] Oral Tablet (Demadex)Indicatio ns:Atherosclerotic heart disease of [place] coronary artery with other forms of angina pectoris (HCC),Hypertensive heart disease with chronic diastolic congestive heart failure (HCC) TAKE 1 TABLET BY MOUTH EVERY MORNING. MAY TAKE 1 ADDITIONAL TABLET NEEDED FOR SWELLING. 90 Tablet 1 01/06/20 24 Active Tamsulosin HCl 0.4 MG Oral Capsule (Flomax) TAKE 1 CAPSULE BY MOUTH EVERY MORNING 90 Capsule 01/12/20 24 Active Tamsulosin HCl 0.4 MG Oral Capsule (Flomax) TAKE 1 CAPSULE BY MOUTH EVERY MORNING 90 Capsule 10/15/19 24 024 Discontinued documented as of this [...] mg daily Coronary artery disease invo lving [place] coronary artery of [place] heart without angina pectoris 11/15/2021 Last Assessment & Plan: Stable. No angina -continue toprol, ASA and statin Seasonal allergies 11/15/2021 Recurrent UTI 10/07/2021 Last Assessment & Plan: Followed by urology Pt is supposed to be on methenamine--will need to clarify with dgt that she is giving this. 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-harpsichord maker and ID Type 2 diabetes mellitus [...] 01/16/22 Moderate aortic stenosis 05/06/2018 Anxiety 08/05/2017 Ghhxtvo-Pfbxq-Rzkcf disease 06/27/2015 Last Assessment & Plan: Frequent [...] liver 05/06/2018 Atherosclerotic heart diseas e of [place] coronary artery with other forms of angina [...] 10/31/2010 08/28/2018 Acute coronary syndrome 10/30/201001/04 [place] Research Other*[id number] 02/02/2010 04/18/2014 Overview: [place] [facility], Dr Joel Kwon PI Obesity, morbid [...] Telephone Encounter - Alfredo Panda MD - 01/12/2024 6:58 AM EDTSigned Prescriptions: Disp Refills Tamsulosin HCl 0.4 MG Oral Capsule (Flomax)90 Cap*0 Sig: TAKE 1 CAPSULE BY MOUTH EVERY MORNING Authorizing Provider: ALFREDO PANDA * Telephone Encounter - Interface, E-[facility] S[facility] Inbound - 01/11/2024 6:04 AM EDT Pending Prescriptions: Disp Refills Tamsulosin HCl 0.4 MG Oral Capsule [Pharma*90 Cap*0 Sig: TAKE 1 CAPSULE BY MOUTH EVERY MORNING * Telephone Encounter - Fani Starr LPN - 01/09/2024 8:40 AM EDTPending Prescriptions: Disp Refills Tamsulosin HCl 0.4 MG Oral Capsule [Pharma*90 Cap*0 Sig: TAKE 1 CAPSULE BY MOUTH EVERY MORNING * Telephone Encounter - Fani Starr LPN - 01/09/2024 8:40 AM EDT Please refill the requested medication(s). Tamsulosin 10/21/2023 (in office), Visit date not found (telemedicine) 01/26/2024 Review of patient's allergies indicates: Allergen Reactions Methocarbamol Other reaction(s): Delirium Darvon [Propoxyphene Hcl] Rash Fentanyl Diarrhea anxiety Robaxin [Methocarbamol] Zolpidem Other reaction(s): Confusion documented in this encounter Plan of Treatment Upcoming Encounters Date Type Department Care Team (Late st Contact Info) Description 01/16/2024 9:45 AM EDT Office Visit UrologKimberly [place] [address] [facility] [address] [place] [address] Alfredo Panda MD [address] [place] [address] 01/26/2024 3:45 PM EDT Procedure Only Urology, [facility] [address] [address] [address] Alfredo Panda MD [address] [place] [address] 02/09/2024 9:00 AM EDT Home Visit [facility] [address] [address] [address] Kirby Valenzuela PA-C [address] [place] [address] 02/25/2024 11:00 AM EDT Office Visit Cardiology, [facility] [address] [place] [address] [address] Haydee Pop CRNP [address] [place] [address] 03/02/2024 4:00 PM EDT Imaging Radiology, [facility] [address] [facility] [address] 06/08/2024 6:00 PM EST [facility] Visit [facility] [address] [facility] [address] Brian Domínguez MD [address] [facility] [place] [id number] Scheduled Procedures Name Priority Associated Diagnoses Date/Ti [...] 06/10/2021, 08/29/2020, 08/01/2020 CKD PHOS USE SMARTSET 84732 10/24/202310/05, 02/18/2022, 02/17/2022, Additional history exists Influenza [...] Additional history exists CKD HGB USE SMARTSET 76001 12/10/202412/10, 08/04/2023, 08/04/2023, Additional history exists O2 [...] this encounter Medical Devices Implanted Type Area Grounds/Maintenance Specialist Device Identifier Shelf Expiration Date Model / Serial / Lot Sut Steel 6 M654g - [id number] Implanted:Qty: 3 on 02/15/2011 [place] [facility] [place]A: Chest DO NOT USE 01/15/2015 M654G / / [id number] [facility] 225-241 - [id number] Implanted:Qty: 1 on 02/15/2011 at [place] [facility] N/A: Chest [employer] 225-241 / / [id number] Sut Steel 6 M654g - [id number] Implanted:Qty: 1 on 02/15/2011 at [place] [facility] N/A: Chest DO NOT USE 07/21/2015 M654G / / [id number] documented as of this encounter Advance Directives Documents on File Type Date Recorded 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
--- OUTSIDE RECORDS SUMMARY | 2024-03-03 08:08 | External Medical Summary | Summary of Care ---
Author Name Unknown Organization [facility] Address [address] [place] [address] Phone [phone] Care Team Providers Care School Commissioner Name Role Phone Brian Domínguez MD Primary Care Provider [phone]- [phone] Reason for Visit * Reason Onset Date Comments Post Procedure Problem 01/12/2024 Incision issues Encounter Details Date Type Department Care Team (Late st Contact Info) Description 01/12/2024 Telephone Urology, [facility] [address] [place] [address] Services, Scheduling [address] [place] [address] Post Procedure Problem (Incision issues ) Allergies [...] Status venlafaxine XR (EFFEXOR XR) 150 MG [id number]:Dep ression Take 1 Cap by mouth daily. [...] Kit 11/18/2017 Active Blood Glucose Monitoring Suppl ([employer] VERIO) w/Device KIT Use as directed. Use as directed. 1 Kit 10/31/2018 Active Spacer/Aero-Holding Chambers WISAM Use with inhaler. Wheezing/bronchitis . 1 Device 04/08/2019 Active Lancet Devices (PowderhookTOUCH DELICA LANCING DEV) MISC Use four times [...] minutes 25 Tablet 5 10/16/2023 Active Nystatin 540951 UNIT/GM External Powder (Nystop)Indications :Candidal intertrigo Apply topically to affected area 3 times a day. Apply to right breast until rash resolved. 30 g 10/16/2023 Active Nystatin 286472 UNIT/ML Mouth/Throat Suspension SWISH AND SWALLOW 5ML IN THE MORNING AND 5ML AT NOON AND 5 ML IN THE EVENING AND 5ML BEFORE BEDTIME, FOR THRUSH 240 mL 1 10/16/2023 Active Metoprolol Succinate ER 25 MG Oral Tablet Extended Release 24 Hour (toPROL XL)Indications:HTN, goal below 130/80 TAKE 1 TABLET BY MOUTH EVERY MORNING 90 Tablet 10/25/2023 Active Vitamin D (Ergocalciferol) 1.25 MG (59170 UT) Oral Capsule (Drisdol)Indication s:Vitamin D deficiency [...] Oral Tablet (Demadex)Indication s:Atherosclerotic heart disease of [place] coronary artery with other forms of angina [...] mg daily Coronary artery disease invo lving [place] coronary artery of [place] heart without angina pectoris 11/15/2021 Last Assessment & Plan: Stable. No angina -continue toprol, ASA and statin Seasonal allergies 11/15/2021 Recurrent UTI 10/07/2021 Last Assessment & Plan: Followed by urology Pt is supposed to be on methenamine--will need to clarify with dgt that she is giving this. 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-combat control manager and ID Type 2 diabetes mellitus [...] 01/16/22 Moderate aortic stenosis 05/06/2018 Anxiety 08/05/2017 Pnyqfqw-Puchv-Zwwgf disease 06/27/2015 Last Assessment & Plan: Frequent [...] liver 05/06/2018 Atherosclerotic heart diseas e of [place] coronary artery with other forms of angina [...] stenosis 10/31/2010 08/28/2018 Acute coronary syndrome 10/30/201001/04 [place] Research Other*[id number] 02/02/2010 04/18/2014 Overview: [facility], Dr Joel [...] #2. 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 ant icoagulant therapy [...] [address] [place] [address] Alfredo Panda MD [address] [place] [address] 01/26/2024 3:45 PM EDT Procedure Only Urology, [facility] [address] [place] [address] Alfredo Panda MD [address] [place] [address] 02/05/2024 9:30 AM EDT Scheduled Telephone [facility], [facility] [address] [facility] [place] [address] Jesusita Saenz, KELLYN [address] [facility] [place] [address] 02/09/2024 9:00 AM EDT Home Visit [facility], [facility] [address] [place] [address] Kirby Valenzuela PA-C [address] [facility] [place] [address] 02/25/2024 11:00 AM EDT Office Visit Cardiology, [facility] [address] [place] [address] Haydee Pop CRNP [address] [place] [address] 03/02/2024 4:00 PM EDT Imaging Radiology, [facility] [address] [facility] [address] 06/08/2024 6:00 PM EST [facility] [address] [place] [id number] Brian Domínguez MD [address] [place] [address] Scheduled Procedures Name Priority Associated Diagnoses Date/Ti [...] 06/10/2021, 08/29/2020, 08/01/2020 CKD PHOS USE SMARTSET 27145 10/24/202310/05, 02/18/2022, 02/17/2022, Additional history exists Influenza [...] Additional history exists CKD HGB USE SMARTSET 22918 12/10/202412/10, 08/04/2023, 08/04/2023, Additional history exists O2 [...] this encounter Medical Devices Implanted Type Area Wire Stitcher Machine Device Identifier Shelf Expiration Date Model / Serial / Lot Sut Steel 6 M654g - [id number] Implanted:Qty: 3 on 02/15/2011 at [place] [facility] N/A: Chest DO NOT USE 01/15/2015 M654G / / [id number] [place] 225-241 - [id number] Implanted:Qty: 1 on 02/15/2011 at [place] [facility] N/A: Chest [employer] 225-241 / / [id number] Sut Steel 6 M654g - [id number] Implanted:Qty: 1 on 02/15/2011 at [place] [facility] N/A: Chest DO NOT USE 07/21/2015 M654G / / [id number] documented as of this encounter Advance Directives Documents on File Type Date Recorded 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
--- OUTSIDE RECORDS SUMMARY | 2024-03-03 08:08 | External Medical Summary | Summary of Care ---
Author Name Unknown Organization [facility] Address [address] [place] [address] Phone [phone] Care Team Providers Care Insurance Coder Name Role Phone Brian Domínguez MD Primary Care Provider +1- [phone] Reason for Visit * Reason Onset Date Comments Post Procedure Problem 01/12/2024 Incision issues Encounter Details Date Type Department Care Team (Late st Contact Info) Description 01/12/2024 Telephone Urology, [facility] [address] [place] [address] Services, Scheduling [address] [place] [address] Post Procedure Problem (Incision issues ) Allergies [...] Status venlafaxine XR (EFFEXOR XR) 150 MG [id number]:Dep ression Take 1 Cap by mouth daily. [...] Kit 11/18/2017 Active Blood Glucose Monitoring Suppl (R&T EnterprisesUCH VERIO) w/Device KIT Use as directed. Use as directed. 1 Kit 10/31/2018 Active Spacer/Aero-Holding Chambers WISAM Use with inhaler. Wheezing/bronchitis . 1 Device 04/08/2019 Active Lancet Devices (Pocket ChangeTOUCH DELICA LANCING DEV) MISC Use four times [...] minutes 25 Tablet 5 10/16/2023 Active Nystatin 598103 UNIT/GM External Powder (Nystop)Indications :Candidal intertrigo Apply topically to affected area 3 times a day. Apply to right breast until rash resolved. 30 g 10/16/2023 Active Nystatin 915975 UNIT/ML Mouth/Throat Suspension SWISH AND SWALLOW 5ML IN THE MORNING AND 5ML AT NOON AND 5 ML IN THE EVENING AND 5ML BEFORE BEDTIME, FOR THRUSH 240 mL 1 10/16/2023 Active Metoprolol Succinate ER 25 MG Oral Tablet Extended Release 24 Hour (toPROL XL)Indications:HTN, goal below 130/80 TAKE 1 TABLET BY MOUTH EVERY MORNING 90 Tablet 10/25/2023 Active Vitamin D (Ergocalciferol) 1.25 MG (99374 UT) Oral Capsule (Drisdol)Indication s:Vitamin D deficiency [...] Tablet (Demadex)Indication s:Atherosclerotic heart disease of [place] coronary artery with other forms of [...] mg daily Coronary artery disease invo lving [place] coronary artery of [place] heart without angina pectoris 11/15/2021 Last Assessment & Plan: Stable. No angina -continue toprol, ASA and statin Seasonal allergies 11/15/2021 Recurrent UTI 10/07/2021 Last Assessment & Plan: Followed by urology Pt is supposed to be on methenamine--will need to clarify with dgt that she is giving this. 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 * Telephone Encounter - Fani Starr LPN [...] [address] [place] [address] Alfredo Panda MD [address] [place] [address] 01/26/2024 3:45 PM EDT Procedure Only Urology, [facility] [address] [facility] [place] [address] Alfredo Panda MD [address] [place] [address] 02/05/2024 9:30 AM EDT Scheduled Telephone [facility], [facility] [address] [facility] [place] [address] Jesusita Saenz, RDN [address] [facility] [place] [address] 02/09/2024 9:00 AM EDT Home Visit [facility], [facility] [address] [facility] [place] [address] Kirby Valenzuela PA-C [address] [facility] [address] 02/25/2024 11:00 AM EDT Office Visit Cardiology, [facility] [address] [facility] [place] [address] Haydee Pop CRNP [address] [facility] [address] 03/02/2024 4:00 PM EDT Imaging Radiology, [address] [place] [address] 06/08/2024 6:00 PM EST Office Visit Family [facility] [address] [place] [place] [id number] Brian Domínguez MD [address] [place] [address] Scheduled Procedures Name Priority Associated Diagnoses Date/Ti [...] 06/10/2021, 08/29/2020, 08/01/2020 CKD PHOS USE SMARTSET 34398 10/24/202310/05, 02/18/2022, 02/17/2022, Additional history exists Influenza [...] Additional history exists CKD HGB USE SMARTSET 30563 12/10/202412/10, 08/04/2023, 08/04/2023, Additional history exists O2 [...] this encounter Medical Devices Implanted Type Area Pneumatic Tester Mechanic Device Identifier Shelf Expiration Date Model / Serial / Lot Sut Steel 6 M654g - [id number] Implanted:Qty: 3 on 02/15/[address] [facility] N/A: Chest DO NOT USE 01/15/2015 M654G / / [id number] Band Magdy 225-241 - [id number] Implanted:Qty: 1 on 02/15/[address] [facility] N/A: Chest [employer] 225-241 / / [id number] Sut Steel 6 M654g - [id number] Implanted:Qty: 1 on 02/15/[address] 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
--- OUTSIDE RECORDS SUMMARY | 2024-03-03 08:08 | External Medical Summary | Summary of Care ---
Author Name Unknown Organization [facility] Address [address] [facility] [place] [address] Phone [phone] Care Team Providers Care Dip Painter Name Role Phone Brian Domníguez MD Primary Care Provider [phone]- [phone] Reason for Visit * Reason Onset Date Comments [facility]: Acute 01/10/2024 Encounter Details Date Type Department Care Team (Late st Contact Info) Description 01/10/2024 9:45 AM EDT Scheduled Telephone [facility], [facility] [address] [facility] [place] [address] [facility], Nurse [facility] [address] [facility] [place] [address] Allergies Active Allergy Reactions Criticality Noted Date Comments Propoxyphene Hcl Rash Low 10/29/2010 Fentanyl Diarrhea Low 04/26/2010 anxiety Methocarbamol Medium 10/05/2020 Other reaction(s): Delirium Methocarbamol Low 04/15/2007 Zolpidem Low 10/05/2020 Other reaction(s): Confusion documented as of this encounter (statuses as of 01/12/2024) Medications Medication Sig Dispensed Refills Start Date End Date Status venlafaxine XR (EFFEXOR XR) 150 MG [id number]:De pression Take 1 Cap by mouth daily. [...] 11/19/19 18 Active Blood Glucose Monitoring Suppl ([employer] VERIO) w/Device KIT Use as directed. Use as directed. 1 Kit 11/01/19 19 Active Spacer/Aero-Holdin g Chambers WISAM Use with inhaler. Wheezing/bronchiti s. 1 Device 04/08/20 19 Active Lancet Devices (TrendPoTOUCH DELICA LANCING DEV) MISC Use four times [...] 25 Tablet 5 10/16/19 24 Active Nystatin 034041 UNIT/GM External Powder (Nystop)Indication s:Candidal intertrigo Apply topically to affected area 3 times a day. Apply to right breast until rash resolved. 30 g 10/16/19 24 Active Nystatin 394853 UNIT/ML Mouth/Throat Suspension SWISH AND SWALLOW 5ML [...] 24 Active Vitamin D (Ergocalciferol) 1.25 MG (08249 UT) Oral Capsule (Drisdol)Indicatio ns:Vitamin D deficiency [...] Oral Tablet (Demadex)Indicatio ns:Atherosclerotic heart disease of [place] coronary artery with [...] mg daily Coronary artery disease invo lving [place] coronary artery of [place] heart without angina pectoris 11/15/2021 Last Assessment [...] 01/16/22 Moderate aortic stenosis 05/06/2018 Anxiety 08/05/2017 Mcyrewr-Jnymr-Pulmv disease 06/27/2015 Last Assessment & Plan: Frequent [...] liver 05/06/2018 Atherosclerotic heart diseas e of [place] coronary [...] stenosis 10/31/2010 08/28/2018 Acute coronary syndrome 10/30/201001/04 [facility] Research Other*[id number] 02/02/2010 04/18/2014 Overview: [facility], Dr Joel Kwon PI Obesity, morbid [...] and verbalized understanding. * Telephone Encounter - Alfredo Panda MD - 01/12/2024 7:04 AM EDT Degree of discharge and healing is within normal limits for the patient's procedure and timeframe. Encourage hydration. Can use half-strength peroxide solution twice a day for care at wound site withdry dressing. Soap and water with bathing should Otherwise suffice. Thanks, HM * Telephone Encounter - Judy Montoya RN - 01/10/2024 11:22 AM EDT Outgoing call to the pt and read her the message from Dr Jose. Instructed for her to call Urology on Friday morning to make them aware of the leakage despite taking Oxybutynin and the serosanguinous drainage. She verbalized understanding of same. Judy FRIEDMAN, RN [facility] Triage Coordinator [phone] * Telephone Encounter - Judy Montoya RN - 01/10/2024 9:45 AM EDT Images from the original note were not included. [facility] house carpenter helper Acute Call Date: 01/10/2024 Time: 10:10 AM Name: Angelina Ballard : 1950 Caller: Pt called national stormwater leader this morning, [facility] house carpenter helper doing a f/u call Relationship to Chief Complaint Patient presents with [facility]: Acute HPI: Angelina Ballard is a 73 year old female that is calling [facility] Intake to report suprapubic catheter placed on 12/24/23 since then you have woken up soaked with urine twice. Nursing Assessment: Patient's chief complaint for this call: Urinary symptoms Spoke with pt who states that she woke up through the night last night saturated with urine. She does c/o "cramps" in her bladder area. She does take Oxybutynin for same. Reports there was also 1400cc dark yellow urine in the over night gravity drainage bag. Denies fever or chills.She is currently taking Cefdinir for a UTI. She does still get the urge to urinate, does not void on toilet but does state at times when she wipes her genital area there is wetness. She reports having serosanguinous drainage at the suprapubic catheter insertion site. Reports redness and excoriationat same. Requested to have her caregiver email a picture of same to this house carpenter helper. Pain Has pain Pain level: not quantified Location: bladder Quality of Pain: cramping Does the pain radiate: No Baseline Assessment Able to performing ADLs at baseline (walking, daily tasks, etc.): Yes Chief Complaint is related to a chronic condition: No Patient prescribed oxygen? No Patient has been ordered DME equipment (assistive devices, respiratory equipment, etc.): No Medication Reconciliation: (See medication list) Taking medication as ordered: Yes Medications ordered/taking to treat reason for call: No Heart failure symptoms: No COPD exacerbation symptoms: No Reinforcement Education: Continue to take all medications as prescribed Keep the suprapubic area clean and dry, may apply a gauze pad to absorb any drainage from the insertion site if needed, if not then leave open to air Paper tape is preferred Do not rub or scratch at the suprapubic site Make sure to use the larger over night bag at , ensure that the tubing is straight and not pinched off or bent Finish the oral antibiotic as prescribed Need to report this leakage issue to the Urologist Monitor for worsening symptoms to report: fever, chills, persistent bladder spasms, persistent leakage from the suprapubic cath insertion site, redness, warmth, swelling, drainage from suprapubic site, bloody or cloudy or foul smelling urine, sediment in the urine, blockage of catheter Treatment/Plan: (need to report) Level of call: Non-Acute Recommended treatment plan: Clinical advice given over the phone Will send to residential construction instructor Provider for any recommendations Call back instructions provided to patient. Judy FRIEDMAN, RN [facility] Intake Triage Coordinator [phone] documented in this encounter Plan of Treatment Upcoming Encounters Date Type Department Care Team (Late st Contact Info) Description 01/16/2024 9:45 AM EDT Office Visit Urology Kimberly Harmon [address] [facility] [address] [place] [address] Alfredo aPnda MD [address] [place] [address] 01/26/2024 3:45 PM EDT Procedure Only Urology, [facility] [address] [place] [address] Alfredo Panda MD [address] [place] [address] 02/05/2024 9:30 AM EDT Scheduled Telephone [facility], [facility] [address] [facility] [place] [address] Jesusita Saenz, RDN [address] [facility] [place] [address] 02/09/2024 9:00 AM EDT Home Visit [facility], [facility] [address] [place] [address] Kirby Valenzuela PA-C [address] [place] [address] 02/25/2024 11:00 AM EDT Office Visit Cardiology, [facility] [address] [place] [address] Haydee Pop CRNP [address] [place] [address] 03/02/2024 4:00 PM EDT Imaging Radiology, [place] [address] [facility] [place] [address] 06/08/2024 6:00 PM EST [facility] [address] [facility] [address] Brian Domínguez MD [address] [place] [address] Scheduled Procedures Name Priority Associated Diagnoses Date/Ti [...] 06/10/2021, 08/29/2020, 08/01/2020 CKD PHOS USE SMARTSET 57464 10/24/202310/05, 02/18/2022, 02/17/2022, Additional history exists Influenza [...] Additional history exists CKD HGB USE SMARTSET 90913 12/10/202412/10, 08/04/2023, 08/04/2023, Additional history exists O2 [...] this encounter Medical Devices Implanted Type Area Road Grader Operator Device Identifier Shelf Expiration Date Model / Serial / Lot Sut Steel 6 M654g - [id number] Implanted:Qty: 3 on 02/15/2011 at OR [facility] N/A: Chest DO NOT USE 01/15/2015 M654G / / [id number] Band Magdy 225-241 - [id number] Implanted:Qty: 1 on 02/15/2011 at OR [facility] N/A: Chest [employer] 225-241 / / [id number] Sut Steel 6 M654g - [id number] Implanted:Qty: 1 on 02/15/2011 at OR [facility] N/A: Chest DO NOT USE 07/21/2015 M654G / / [id number] documented as of this encounter Advance Directives Documents on File Type Date Recorded Patient Residential Housekeeper Expl anation POLST 05/06/2018 POLST * Full [...] Healthcare Agent [facility] Communication Carolyn Ballard Adult Child Health Care Agent Care Teams Dip Painter Relationship Specialty Start Date End Date Brian Domínguez MD [address] [place] [address] PCP - General Family Medicine 07/16/17 documented as of this encounter
--- OUTSIDE RECORDS SUMMARY | 2024-03-03 08:09 | External Medical Summary | Summary of Care ---
Author Name Unknown Organization [facility] Address [address] [facility] [place] [address] Phone [phone] Care Team Providers Care Windmill Technician Name Role Phone Brian oDmínguez MD Primary Care Provider [phone]- [phone] Reason for Visit * Reason Onset Date Comments [facility]: Acute 01/10/2024 Encounter Details Date Type Department Care Team (Late st Contact Info) Description 01/10/2024 9:45 AM EDT Scheduled Telephone [facility], [facility] [address] [facility] [place] [address] [facility], Nurse [facility] [address] [facility] [place] [address] Allergies Active Allergy Reactions Criticality Noted Date Comments Propoxyphene Hcl Rash Low 10/29/2010 Fentanyl Diarrhea Low 04/26/2010 anxiety Methocarbamol Medium 10/05/2020 Other reaction(s): Delirium Methocarbamol Low 04/15/2007 Zolpidem Low 10/05/2020 Other reaction(s): Confusion documented as of this encounter (statuses as of 01/12/2024) Medications Medication Sig Dispensed Refills Start Date End Date Status venlafaxine XR (EFFEXOR XR) 150 MG [id number]:De pression Take 1 Cap by mouth daily. [...] 11/19/19 18 Active Blood Glucose Monitoring Suppl ([employer] VERIO) w/Device KIT Use as directed. Use as directed. 1 Kit 11/01/19 19 Active Spacer/Aero-Holdin g Chambers WISAM Use with inhaler. Wheezing/bronchiti s. 1 Device 04/08/20 19 Active Lancet Devices (NoviMedicineTOUCH DELICA LANCING DEV) MISC Use four times [...] 25 Tablet 5 10/16/19 24 Active Nystatin 422113 UNIT/GM External Powder (Nystop)Indication s:Candidal intertrigo Apply topically to affected area 3 times a day. Apply to right breast until rash resolved. 30 g 10/16/19 24 Active Nystatin 754049 UNIT/ML Mouth/Throat Suspension SWISH AND SWALLOW 5ML [...] 24 Active Vitamin D (Ergocalciferol) 1.25 MG (51885 UT) Oral Capsule (Drisdol)Indicatio ns:Vitamin D deficiency [...] Oral Tablet (Demadex)Indicatio ns:Atherosclerotic heart disease of [place] coronary artery with other forms of angina [...] mg daily Coronary artery disease invo lving [place]ik[place] coronary artery of [place] heart without angina pectoris 11/15/2021 Last Assessment & Plan: Stable. No angina -continue toprol, ASA and statin Seasonal allergies 11/15/2021 Recurrent UTI 10/07/2021 Last Assessment & Plan: Followed by urology Pt is supposed to be on methenamine--will need to clarify with dgt that she is giving this. 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-foot gatherer and ID Type 2 diabetes mellitus wit [...] 01/16/22 Moderate aortic stenosis 05/06/2018 Anxiety 08/05/2017 Gwsbgzd-Sntmu-Cbxjg disease 06/27/2015 Last Assessment & Plan: Frequent [...] liver 05/06/2018 Atherosclerotic heart diseas e of [place] coronary artery with other forms of angina [...] stenosis 10/31/2010 08/28/2018 Acute coronary syndrome 10/30/201001/04 [place] [facility] Other*[id number] 02/02/2010 04/18/2014 Overview: [place] [facility], Dr Joel Kwon PI Obesity, morbid [...] verbalized understanding of same. Judy FRIEDMAN, RN [facility] Intake Triage Coordinator [phone] * Telephone Encounter - Judy Montoya RN - 01/10/2024 9:45 AM EDT Images from the original note were not included. [facility] detective homicide squad Acute Call Date: 01/10/2024 Time: 10:10 AM Name: Angelina Ballard : 1950 Caller: Pt called novelty worker this morning, [facility] detective homicide squad doing a f/u call Relationship to Chief Complaint Patient presents with [facility]: Acute HPI: Angelina Ballard is a 73 year old female that is calling [facility] Intake to report suprapubic catheter [...] email a picture of same to this detective homicide squad. Pain Has pain Pain level: not quantified [...] given over the phone Will send to color television console monitor Provider for any recommendations Call back instructions provided to patient. Judy FRIEDMAN, RN [facility] Intake Triage Coordinator [phone] documented in this encounter Plan of Treatment Upcoming Encounters Date Type Department Care Team (Late st Contact Info) Description 01/16/2024 9:45 AM EDT Office Visit Urology Kimberly Harmon [address] [address] Alfredo Panda MD [address] [place] [address] 01/26/2024 3:45 PM EDT Procedure Only Urology, [facility] [address] [facility] [place] [address] Alfredo Panda MD [address] [place] [address] 02/09/2024 9:00 AM EDT Home Visit [facility] at [facility] [address] [facility] [place] [address] Kirby Valenzuela PA-C [address] [facility] [place] [address] 02/25/2024 11:00 AM EDT Office Visit Cardiology, [facility] [address] [facility] [place] [address] Haydee Pop CRNP [address] [facility] [place] [address] 03/02/2024 4:00 PM EDT Imaging Radiology, [address] [place] [address] 06/08/2024 6:00 PM EST Office Visit [facility] [address] [place] [facility] [place] [id number] Brian Domínguez MD [address] [place] [address] Scheduled Procedures Name Priority Associated Diagnoses Date/Ti [...] 06/10/2021, 08/29/2020, 08/01/2020 CKD PHOS USE SMARTSET 32451 10/24/202310/05, 02/18/2022, 02/17/2022, Additional history exists Influenza [...] Additional history exists CKD HGB USE SMARTSET 26281 12/10/202412/10, 08/04/2023, 08/04/2023, Additional history exists O2 [...] this encounter Medical Devices Implanted Type Area Chiropractor Assistant Device Identifier Shelf Expiration Date Model / Serial / Lot Sut Steel 6 M654g - [id number] Implanted:Qty: 3 on 02/15/2011 at OR [facility] N/A: Chest DO NOT USE 01/15/2015 M654G / / [id number] Band Magdy 225-241 - [id number] Implanted:Qty: 1 on 02/15/2011 at OR [facility] N/A: Chest [employer] 225-241 / / [id number] Sut Steel 6 M654g - [id number] Implanted:Qty: 1 on 02/15/2011 at OR [facility] N/A: Chest DO NOT USE 07/21/2015 M654G / / [id number] documented as of this encounter Advance Directives Documents on File Type Date Recorded Patient Adoption Worker Expl anation POLST 05/06/2018 POLST * [...] Agents on File Name Relationship Healthcare Agent [facility] Communication Carolyn Ballard Adult Child Health Care Agent Care Teams Windmill Technician Relationship Specialty Start Date End Date Brian Domínguez MD [address] [place] [address] PCP - General Family Medicine 07/16/17 documented as of this encounter
--- OUTSIDE RECORDS SUMMARY | 2024-03-03 08:09 | External Medical Summary | Summary of Care ---
Author Name Unknown Organization [facility] Address [address] [facility] [address] Phone [phone] Care Team Providers Care Human Resources Psychologist Name Role Phone Brian Domínguez MD Primary Care Provider +1- [phone] Reason for Visit * Reason Onset Date Comments [facility]: Acute 01/10/2024 Encounter Details Date Type Department Care Team (Late st Contact Info) Description 01/10/2024 9:45 AM EDT Scheduled Telephone [facility], [facility] [address] [facility] [place] [address] [facility], Nurse [facility] [address] [place] [address] Allergies Active Allergy Reactions Criticality Noted Date Comments Propoxyphene Hcl Rash Low 10/29/2010 Fentanyl Diarrhea Low 04/26/2010 anxiety Methocarbamol Medium 10/05/2020 Other reaction(s): Delirium Methocarbamol Low 04/15/2007 Zolpidem Low 10/05/2020 Other reaction(s): Confusion documented as of this encounter (statuses as of 01/10/2024) Medications Medication Sig Dispensed Refills Start Date End Date Status venlafaxine XR (EFFEXOR XR) 150 MG [id number]:Dep ression Take 1 Cap by mouth daily. [...] Kit 11/18/2017 Active Blood Glucose Monitoring Suppl (Virtustream VERIO) w/Device KIT Use as directed. Use as directed. 1 Kit 10/31/2018 Active Spacer/Aero-Holding Chambers WISAM Use with inhaler. Wheezing/bronchitis . 1 Device 04/08/2019 Active Lancet Devices (BViewTOUCH DELICA LANCING DEV) MISC Use four times [...] INSTRUCTIONS Please arrange for as needed Home fdc visit for obtaining straight cath urine sample [...] BEFORE BEDTIME 180 Tablet 1 10/07/2023 Active Tamsulosin HCl 0.4 MG Oral Capsule (Flomax) TAKE 1 CAPSULE BY MOUTH EVERY MORNING 90 Capsule 10/15/2023 Active Gabapentin 300 MG Oral Capsule (Neurontin)Indicati ons:Lumbar spondylosis TAKE 1 CAPSULE BY MOUTH TWICE DAILY 60 Capsule 5 10/14/2023 Active Nitroglycerin 0.4 MG Sublingual Tablet Sublingual (Nitrostat)Indicati ons:Chronic coronary artery disease Place 1 Tablet under the tongue every 5 minutes as needed for Pain, Chest. Max dose 3 tablets in 15 minutes 25 Tablet 5 10/16/2023 Active Nystatin 497264 UNIT/GM External Powder (Nystop)Indications :Candidal intertrigo Apply topically to affected area 3 times a day. Apply to right breast until rash resolved. 30 g 10/16/2023 Active Nystatin 206109 UNIT/ML Mouth/Throat Suspension SWISH AND SWALLOW 5ML IN THE MORNING AND 5ML AT NOON AND 5 ML IN THE EVENING AND 5ML BEFORE BEDTIME, FOR THRUSH 240 mL 1 10/16/2023 Active Metoprolol Succinate ER 25 MG Oral Tablet Extended Release 24 Hour (toPROL XL)Indications:HTN, goal below 130/80 TAKE 1 TABLET BY MOUTH EVERY MORNING 90 Tablet 10/25/2023 Active Vitamin D (Ergocalciferol) 1.25 MG (44684 UT) Oral Capsule (Drisdol)Indication s:Vitamin D deficiency [...] Oral Tablet (Demadex)Indication s:Atherosclerotic heart disease of tan[place] coronary artery with other forms of angina pectoris (HCC),Hypertensive heart disease with chronic diastolic congestive heart failure (HCC) TAKE 1 TABLET BY MOUTH EVERY MORNING. MAY TAKE 1 ADDITIONAL TABLET NEEDED FOR SWELLING. 90 Tablet 1 01/06/2024 Active documented as of this encounter (statuses as of 01/10/2024) Active Problems Problem Noted Date Diagnosed Date [...] mg daily Coronary artery disease invo lving tanana coronary artery of tan[place] heart without angina pectoris 11/15/2021 Last Assessment & Plan: Stable. No angina -continue toprol, ASA and statin Seasonal allergies 11/15/2021 Recurrent UTI 10/07/2021 Last Assessment & Plan: Followed by urology Pt is supposed to be on methenamine--will need to clarify with dgt that she is giving this. 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-any commodity buyer and ID Type 2 diabetes mellitus wit [...] incontinence 03/27/2021 [facility] (current) use of insulin 09/29/2019 Diabetic gastroparesis [...] 01/16/22 Moderate aortic stenosis 05/06/2018 Anxiety 08/05/2017 Ispttsk-Laxht-Wglbd disease 06/27/2015 Last Assessment & Plan: Frequent [...] as of this encounter (statuses as of 01/10/2024) Resolved Problems Problem Noted Date Diagnosed Date [...] liver 05/06/2018 Atherosclerotic heart diseas e of tanana coronary artery with other forms of angina [...] Sepsis 02/04/2012 07/19/2014 Cellulitis of left foot 02/04/2012/08/2014 Sundowning 02/04/2012 07/19/2014 S/P CABG x 1 07/17/2011 08/19/2012 ASCVD (arteriosclerotic card iovascular disease) 07/17/2011 09/07/2018 Elevated liver enzymes 06/25/201106/27 Unstable angina 02/12/2011 01/21/2014 Recurrent In-stent stenosis 10/31/2010 08/28/2018 Acute coronary syndrome 10/30/201001/04 [place] Research Other*[id number] 02/02/2010 04/18/2014 Overview: [place] [facility], Dr Joel Kwon PI Obesity, morbid [...] superintendent 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 (Household - for ages [...] encounter Miscellaneous Notes * Telephone Encounter - Judy Montoya RN - 01/10/2024 9:45 AM EDT Images from the original note were not included. [facility] hotel dining room cashier Acute Call Date: 01/10/2024 Time: 10:10 AM Name: Angelina Ballard : 1950 Caller: Pt called subacute nurse this morning, [facility] hotel dining room cashier doing a f/u call Relationship to Chief [...] email a picture of same to this hotel dining room cashier. Pain Has pain Pain level: not quantified [...] given over the phone Will send to management consulting Provider for any recommendations Call back instructions provided to patient. Judy FRIEDMAN, RN [facility] Intake Triage Coordinator [phone] documented in this encounter Plan of Treatment Upcoming Encounters Date Type Department Care Team (Late st Contact Info) Description 01/16/2024 9:45 AM EDT Office Visit Urology Kimberly Harmon [address] [facility] [address] [place] [address] Alfredo Panda MD [address] [place] [address] 01/26/2024 3:45 PM EDT Procedure Only Urology, [facility] [address] [address] Alfredo Panda MD [address] [place] [address] 02/09/2024 9:00 AM EDT [facility] [address] [address] [address] Kirby Valenzuela PA-C [address] [place] [address] 02/25/2024 11:00 AM EDT Office Visit Cardiology, [facility] [address] [place] [address] Haydee Pop CRNP [address] [place] [address] 03/02/2024 4:00 PM EDT Imaging Radiology, [facility] [address] [facility] [place] [address] 06/08/2024 6:00 PM EST [facility] [address] [place] [address] Brian Domínguez MD [address] [place] [address] Scheduled Procedures Name Priority Associated [...] 06/10/2021, 08/29/2020, 08/01/2020 CKD PHOS USE SMARTSET 19894 10/24/202310/05, 02/18/2022, 02/17/2022, Additional history exists Influenza [...] Additional history exists CKD HGB USE SMARTSET 78036 12/10/202412/10, 08/04/2023, 08/04/2023, Additional history exists O2 [...] this encounter Medical Devices Implanted Type Area Boat Pilot Device Identifier Shelf Expiration Date Model / Serial / Lot Sut Steel 6 M654g - [id number] [place] [facility] [place] Chest DO NOT USE 01/15/2015 M654G / / [id number] Band Magdy 225-241 - [id number] Implanted:Qty: 1 on 02/15/2011 [place] [facility] [place]: Chest [employer] 225-241 / / [id number] Sut Steel 6 M654g - [id number] Implanted:Qty: 1 on 02/15/2011 [place] [facility] [place]: Chest DO NOT USE 07/21/2015 M654G / / [id number] documented as of this encounter Advance Directives Documents on File Type Date Recorded Patient Digital Media Planner Jose luna POL 05/06/2018 POLST * Full [...] Relationship Healthcare Agent [facility] Communication Carolyn Ballard Adult Child Health Care Agent Care Teams Human Resources Psychologist Relationship Specialty Start Date End Date Brian Domínguez MD [address] [place] [address] PCP - General Family Medicine 07/16/17 documented as of this encounter
--- OUTSIDE RECORDS SUMMARY | 2024-03-03 08:09 | External Medical Summary | Summary of Care ---
Author Name Unknown Organization [facility] Address [address] [facility] [place] [address] Phone [phone] Care Team Providers Care Family Court Registrar Name Role Phone Brian Domínguez MD Primary Care Provider +1- [phone] Reason for Visit * Reason Onset Date Comments [facility]: Maintenance 01/10/2024 Encounter Details Date Type Department Care Team (Late st Contact Info) Description 01/10/2024 Telephone [facility], [facility] [address] [place] [address] [facility], Nurse [address] [place] [id number] [facility]: Maintenance Allergies Active Allergy Reactions Criticality Noted Date Comments Propoxyphene Hcl Rash Low 10/29/2010 Fentanyl Diarrhea Low 04/26/2010 anxiety Methocarbamol Medium 10/05/2020 Other reaction(s): Delirium Methocarbamol Low 04/15/2007 Zolpidem Low 10/05/2020 Other reaction(s): Confusion documented as of this encounter (statuses as of 01/10/2024) Medications Medication Sig Dispensed Refills Start Date End Date Status venlafaxine XR (EFFEXOR XR) 150 MG [id number]:Dep ression Take 1 Cap by mouth daily. [...] Kit 11/18/2017 Active Blood Glucose Monitoring Suppl (Nutrinia VERIO) w/Device KIT Use as directed. Use as directed. 1 Kit 10/31/2018 Active Spacer/Aero-Holding Chambers WISAM Use with inhaler. Wheezing/bronchitis . 1 Device 04/08/2019 Active Lancet Devices (UnafinanceTOUCH DELICA LANCING DEV) MISC Use four times [...] INSTRUCTIONS Please arrange for as needed Home prison visit for obtaining straight cath urine sample [...] minutes 25 Tablet 5 10/16/2023 Active Nystatin 548002 UNIT/GM External Powder (Nystop)Indications :Candidal intertrigo Apply topically to affected area 3 times a day. Apply to right breast until rash resolved. 30 g 10/16/2023 Active Nystatin 654978 UNIT/ML Mouth/Throat Suspension SWISH AND SWALLOW 5ML IN THE MORNING AND 5ML AT NOON AND 5 ML IN THE EVENING AND 5ML BEFORE BEDTIME, FOR THRUSH 240 mL 1 10/16/2023 Active Metoprolol Succinate ER 25 MG Oral Tablet Extended Release 24 Hour (toPROL XL)Indications:HTN, goal below 130/80 TAKE 1 TABLET BY MOUTH EVERY MORNING 90 Tablet 10/25/2023 Active Vitamin D (Ergocalciferol) 1.25 MG (39370 UT) Oral Capsule (Drisdol)Indication s:Vitamin D deficiency [...] Oral Tablet (Demadex)Indication s:Atherosclerotic heart disease of [place] coronary artery with other forms of angina [...] mg daily Coronary artery disease invo lving [place] coronary artery of [place] heart without angina pectoris 11/15/2021 Last Assessment & Plan: Stable. No angina -continue toprol, ASA and statin Seasonal allergies 11/15/2021 Recurrent UTI 10/07/2021 Last Assessment & Plan: Followed by urology Pt is supposed to be on methenamine--will need to clarify with dgt that she is giving this. 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-speed runner and ID Type 2 diabetes mellitus wit [...] 01/16/22 Moderate aortic stenosis 05/06/2018 Anxiety 08/05/2017 Pnfxzeu-Ikdfw-Zijow disease 06/27/2015 Last Assessment & Plan: Frequent [...] liver 05/06/2018 Atherosclerotic heart diseas e of [place] coronary artery with other forms of angina [...] stenosis 10/31/2010 08/28/2018 Acute coronary syndrome 10/30/201001/04 [place] Research Other*[id number] 02/02/2010 04/18/2014 Overview: [place] Registry, Dr Joel Kwon PI Obesity, morbid [...] Encounter - Judy Montoya RN - 01/10/2024 8:53 AM EDT Received Teams message from diesel engine specialist re: Woke up soaked twice since having suprapubic catheter placed 12/24/23 F/U [facility] scheduled for today. Judy FRIEDMAN, RN [facility] Intake Triage Coordinator [phone] documented in this encounter Plan of Treatment Upcoming Encounters Date Type Department Care Team (Late st Contact Info) Description 01/16/2024 9:45 AM EDT Office Visit Urology Kimberly Harmon [address] [place] [address] Alfredo Panda MD [address] [place] [address] 01/26/2024 3:45 PM EDT Procedure Only Urology, [facility] [address] [address] [address] Alfredo Panda MD [address] [place] [address] 02/09/2024 9:00 AM EDT Home Visit [facility] [address] [address] [address] Kirby Valenzuela PA-C [address] [place] [address] 02/25/2024 11:00 AM EDT Office Visit Cardiology, [facility] [address] [address] [address] Haydee Pop CRNP [address] [place] [address] 03/02/2024 4:00 PM EDT Imaging Radiology, [address] [place] [address] 06/08/2024 6:00 PM EST Office Visit [facility] [address] [place] [address] Brian Domínguez MD [address] [facility] [place] [address] Scheduled Procedures Name Priority Associated Diagnoses Date/Ti [...] 06/10/2021, 08/29/2020, 08/01/2020 CKD PHOS USE SMARTSET 32655 10/24/202310/05, 02/18/2022, 02/17/2022, Additional history exists Influenza [...] Additional history exists CKD HGB USE SMARTSET 87451 12/10/202412/10, 08/04/2023, 08/04/2023, Additional history exists O2 [...] this encounter Medical Devices Implanted Type Area Dip Tanker Device Identifier Shelf Expiration Date Model / Serial / Lot Sut Steel 6 M654g - [id number] Implanted:Qty: 3 on 02/15/2011 at OR [facility] N/A: Chest DO NOT USE 01/15/2015 M654G / / [id number] [facility] 225-241 - [id number] Implanted:Qty: 1 on 02/15/2011 at OR [facility] N/A: Chest [employer] 225-241 / / [id number] Sut Steel 6 M654g - [id number] Implanted:Qty: 1 on 02/15/2011 at OR [facility] N/A: Chest DO NOT USE 07/21/2015 M654G / / [id number] documented as of this encounter Advance Directives Documents on File Type Date Recorded 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
--- OUTSIDE RECORDS SUMMARY | 2024-03-03 08:09 | External Medical Summary | Summary of Care ---
Author Name Unknown Organization [facility] Address [address] [place] [address] Phone [phone] Care Team Providers Care Recreational Specialist Name Role Phone Brian Domínguez MD Primary Care Provider +1- [phone] Reason for Visit * Reason Onset Date Comments Advice 01/10/2024 Encounter Details Date Type Department Care Team (Late st Contact Info) Description 01/10/2024 Telephone Family Practice [address] [facility], [place] [address] [place] [address] Julio Jose, [address] [place] [address] Advice Allergies Active Allergy Reactions Criticality Noted Date Comments Propoxyphene Hcl Rash Low 10/29/2010 Fentanyl Diarrhea Low 04/26/2010 anxiety Methocarbamol Medium 10/05/2020 Other reaction(s): Delirium Methocarbamol Low 04/15/2007 Zolpidem Low 10/05/2020 Other reaction(s): Confusion documented as of this encounter (statuses as of 01/10/2024) Medications Medication Sig Dispensed Refills Start Date End Date Status venlafaxine XR (EFFEXOR XR) 150 MG PE92Vomfqhktauo:Dep ression Take 1 Cap by mouth daily. [...] Kit 11/18/2017 Active Blood Glucose Monitoring Suppl (Protean ElectricUCH VERIO) w/Device KIT Use as directed. Use as directed. 1 Kit 10/31/2018 Active Spacer/Aero-Holding Chambers WISAM Use with inhaler. Wheezing/bronchitis . 1 Device 04/08/2019 Active Lancet Devices (StatSims.comTOUCH DELICA LANCING DEV) MISC Use four times [...] EVERY MORNING 90 Tablet 3 07/19/2023 Active Consumer Agent Portal (CAP)Touch Verio In Vitro Strip (Glucose Blood)Indications:T ype [...] minutes 25 Tablet 5 10/16/2023 Active Nystatin 808161 UNIT/GM External Powder (Nystop)Indications :Candidal intertrigo Apply topically to affected area 3 times a day. Apply to right breast until rash resolved. 30 g 10/16/2023 Active Nystatin 181779 UNIT/ML Mouth/Throat Suspension SWISH AND SWALLOW 5ML IN THE MORNING AND 5ML AT NOON AND 5 ML IN THE EVENING AND 5ML BEFORE BEDTIME, FOR THRUSH 240 mL 1 10/16/2023 Active Metoprolol Succinate ER 25 MG Oral Tablet Extended Release 24 Hour (toPROL XL)Indications:HTN, goal below 130/80 TAKE 1 TABLET BY MOUTH EVERY MORNING 90 Tablet 10/25/2023 Active Vitamin D (Ergocalciferol) 1.25 MG (09051 UT) Oral Capsule (Drisdol)Indication s:Vitamin D deficiency [...] mg daily Coronary artery disease invo lving [place] coronary artery of [place] heart without angina pectoris 11/15/2021 Last Assessment & Plan: Stable. No angina -continue toprol, ASA and statin Seasonal allergies 11/15/2021 Recurrent UTI 10/07/2021 Last Assessment & Plan: Followed by urology Pt is supposed to be on methenamine--will need to clarify with dgt that she is giving this. 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 09/29/2019 Diabetic [...] 01/16/22 Moderate aortic stenosis 05/06/2018 Anxiety 08/05/2017 Oyieecz-Dtpxy-Hhzff disease 06/27/2015 Last Assessment & Plan: Frequent [...] liver 05/06/2018 Atherosclerotic heart diseas e of [place] coronary [...] stenosis 10/31/2010 08/28/2018 Acute coronary syndrome 10/30/201001/04 [place] Research Other*[id number] 02/02/2010 04/18/2014 Overview: [place] Registry, Dr Joel CASAS Obesity, morbid (more [...] thrombosis 06/17/2006 01/21/2014 [facility] current use of ant icoagulant therapy 06/17/2006 [...] No 11/24/2023 Does the household have a dzilth-na-[facility]-dith-hle health centerlar source of income? 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 1400 cc from gravity drainage overnight. Serosanguinous drainage at catheter site. Photo of area noted. Catheter looks clean and patent. I would continue same treatment plan. Continue antibiotic. If leakage persists she will need to be evaluated documented in this encounter Plan of Treatment Upcoming Encounters Date Type Department Care Team (Late st Contact Info) Description 01/16/2024 9:45 AM EDT Office Visit Urology Kimberly Harmon [address] [facility] [address] [address] [address] Alfredo Panda MD [address] [place] [address] 01/26/2024 3:45 PM EDT Procedure Only Urology, [facility] [address] [address] [address] Alfredo Panda MD [address] [place] [address] 02/09/2024 9:00 AM EDT Home Visit [facility] [address] [address] Kirby Valenzuela PA-C [address] [place] [address] 02/25/2024 11:00 AM EDT Office Visit Cardiology, [facility] [address] [address] Haydee Pop CRNP [address] [place] [address] 03/02/2024 4:00 PM EDT Imaging Radiology, [address] [place] [address] 06/08/2024 6:00 PM EST Office Visit [facility] [address] [place] [facility] [place] [address] Brian Domínguez MD [address] [facility] [place] [id number] Scheduled Procedures Name Priority Associated Diagnoses Date/Ti [...] 06/10/2021, 08/29/2020, 08/01/2020 CKD PHOS USE SMARTSET 28370 10/24/202310/05, 02/18/2022, 02/17/2022, Additional history exists Influenza [...] Additional history exists CKD HGB USE SMARTSET 99453 12/10/202412/10, 08/04/2023, 08/04/2023, Additional history exists O2 [...] this encounter Medical Devices Implanted Type Area Mottler Operator Device Identifier Shelf Expiration Date Model / Serial / Lot Sut Steel 6 M654g - [id number] Implanted:Qty: 3 on 02/15/2011 [place] [facility] [place]A: Chest DO NOT USE 01/15/2015 M654G / / [id number] [facility] 225-241 - [id number] Implanted:Qty: 1 on 02/15/2011 at [place] [facility] [place] N/A: Chest [employer] 225-241 / / [id number] Sut Steel 6 M654g - [id number] Implanted:Qty: 1 on 02/15/2011 at [place] [facility] [place] N/A: Chest DO NOT USE 07/21/2015 M654G / / [id number] documented as of this encounter Advance Directives Documents on File Type Date Recorded Patient Ski Patroller Expl cheyanneion POL 05/06/2018 POLST * Full [...] Adult Child Health Care Agent Care Teams Recreational Specialist Relationship Specialty Start Date End Date Brian Domínguez MD [address] [facility] [place] [address] PCP - General Family Medicine 07/16/17 documented as of this encounter
--- OUTSIDE RECORDS SUMMARY | 2024-03-03 08:09 | External Medical Summary | Summary of Care ---
Author Name Unknown Organization [facility] Address [address] [facility] [place] [place] [address] Phone [phone] Care Team Providers Care Thoracic Medicine Physician Name Role Phone Brian Domínguez MD Primary Care Provider +1- [phone] Reason for Visit * Reason Onset Date Comments [facility]: Acute 01/10/2024 Encounter Details Date Type Department Care Team (Late st Contact Info) Description 01/10/2024 9:45 AM EDT Scheduled Telephone [facility], [facility] [address] [facility] [place] [address] [facility], Nurse [facility] [address] [facility] [place] [address] Allergies Active Allergy Reactions Criticality Noted Date Comments Propoxyphene Hcl Rash Low 10/29/2010 Fentanyl Diarrhea Low 04/26/2010 anxiety Methocarbamol Medium 10/05/2020 Other reaction(s): Delirium Methocarbamol Low 04/15/2007 Zolpidem Low 10/05/2020 Other reaction(s): Confusion documented as of this encounter (statuses as of 01/10/2024) Medications Medication Sig Dispensed Refills Start Date End Date Status venlafaxine XR (EFFEXOR XR) 150 MG [id number]:Dep ression Take 1 Cap by mouth daily. [...] Kit 11/18/2017 Active Blood Glucose Monitoring Suppl (Lema21 VERIO) w/Device KIT Use as directed. Use as directed. 1 Kit 10/31/2018 Active Spacer/Aero-Holding Chambers WISAM Use with inhaler. Wheezing/bronchitis . 1 Device 04/08/2019 Active Lancet Devices (TyRx PharmaTOUCH DELICA LANCING DEV) MISC Use four times [...] minutes 25 Tablet 5 10/16/2023 Active Nystatin 280229 UNIT/GM External Powder (Nystop)Indications :Candidal intertrigo Apply topically to affected area 3 times a day. Apply to right breast until rash resolved. 30 g 10/16/2023 Active Nystatin 119437 UNIT/ML Mouth/Throat Suspension SWISH AND SWALLOW 5ML IN THE MORNING AND 5ML AT NOON AND 5 ML IN THE EVENING AND 5ML BEFORE BEDTIME, FOR THRUSH 240 mL 1 10/16/2023 Active Metoprolol Succinate ER 25 MG Oral Tablet Extended Release 24 Hour (toPROL XL)Indications:HTN, goal below 130/80 TAKE 1 TABLET BY MOUTH EVERY MORNING 90 Tablet 10/25/2023 Active Vitamin D (Ergocalciferol) 1.25 MG (53925 UT) Oral Capsule (Drisdol)Indication s:Vitamin D deficiency [...] mg daily Coronary artery disease invo lving [place] coronary artery of [place] heart without angina pectoris 11/15/2021 Last Assessment & Plan: Stable. No angina -continue toprol, ASA and statin Seasonal allergies 11/15/2021 Recurrent UTI 10/07/2021 Last Assessment & Plan: Followed by urology Pt is supposed to be on methenamine--will need to clarify with dgt that she is giving this. 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 (Household - for [...] note were not included. [facility] die inspector Acute Call Date: 01/10/2024 Time: 10:10 AM Name: Angelina Ballard : 1950 Caller: Pt called advertising strategist this morning, [facility] die inspector doing a f/u call Relationship to Chief [...] email a picture of same to this die inspector. Pain Has pain Pain level: not quantified [...] given over the phone Will send to nurses' association counselor Provider for any recommendations Call back instructions provided to patient. Judy FRIEDMAN, RN [facility] Intake Triage Coordinator [phone] documented in this encounter Plan of Treatment Upcoming Encounters Date Type Department Care Team (Late st Contact Info) Description 01/16/2024 9:45 AM EDT Office Visit Urology Kimberly Harmon [address] [facility] [address] [place] [address] [address] Alfredo Panda MD [address] [address] [address] 01/26/2024 3:45 PM EDT Procedure Only Urology, [facility] [address] [address] Alrfedo Panda MD [address] [address] 02/09/2024 9:00 AM EDT [facility] [address] [address] Kirby Valenzuela PA-C [address] [place] [address] [address] 02/25/2024 11:00 AM EDT Office Visit Cardiology, [facility] [address] [place] [address] Haydee Pop CRNP [address] [place] [address] 03/02/2024 4:00 PM EDT Imaging Radiology, [facility] [address] [facility] [address] 06/08/2024 6:00 PM EST [facility] [address] [place] [address] Brian Domínguez MD [address] [place] [address] Scheduled Procedures Name Priority Associated [...] 06/10/2021, 08/29/2020, 08/01/2020 CKD PHOS USE SMARTSET 17351 10/24/202310/05, 02/18/2022, 02/17/2022, Additional history exists Influenza [...] Additional history exists CKD HGB USE SMARTSET 53706 12/10/202412/10, 08/04/2023, 08/04/2023, Additional history exists O2 [...] this encounter Medical Devices Implanted Type Area Tube Winder Hand Device Identifier Shelf Expiration Date Model / Serial / Lot Sut Steel 6 M654g - [id number] Implanted:Qty: 3 on 02/15/2011 at OR [facility] N/A: Chest DO NOT USE 01/15/2015 M654G / / [id number] Band Magdy 225-241 - [id number] Implanted:Qty: 1 on 02/15/2011 at OR [facility] N/A: Chest [employer] 225-241 / / [id number] Sut Steel 6 M654g - [id number] Implanted:Qty: 1 on 02/15/2011 at OR [facility] N/A: Chest DO NOT USE 07/21/2015 M654G / / [id number] documented as of this encounter Advance Directives Documents on File Type Date Recorded Patient Wheel Assembler Jose luna POL 05/06/2018 POLST * Full [...] Agent [facility] Communication Carolyn Ballard Adult Child Health Care Agent Care Teams Thoracic Medicine Physician Relationship Specialty Start Date End Date Brian Domínguez MD [address] [place] [address] PCP - General Family Medicine 07/16/17 documented as of this encounter
--- OUTSIDE RECORDS SUMMARY | 2024-03-03 08:09 | External Medical Summary | Summary of Care ---
Author Name Unknown Organization [facility] Address [address] [place] [address] Phone [phone] Care Team Providers Care Wire Frame Lampshade Maker Name Role Phone Brian Domínguez MD Primary Care Provider +1- [phone] Reason for Visit * Reason Onset Date Comments [facility]: Acute 01/10/2024 Encounter Details Date Type Department Care Team (Late st Contact Info) Description 01/10/2024 9:45 AM EDT Scheduled Telephone [facility], [facility] [address] [facility] [place] [address] [facility], Nurse [facility] [address] [facility] [place] [address] Allergies Active Allergy Reactions Criticality Noted Date Comments Propoxyphene Hcl Rash Low 10/29/2010 Fentanyl Diarrhea Low 04/26/2010 anxiety Methocarbamol Medium 10/05/2020 Other reaction(s): Delirium Methocarbamol Low 04/15/2007 Zolpidem Low 10/05/2020 Other reaction(s): Confusion documented as of this encounter (statuses as of 01/10/2024) Medications Medication Sig Dispensed Refills Start Date End Date Status venlafaxine XR (EFFEXOR XR) 150 MG BR61Bipdydmhidm:Dep ression Take 1 Cap by mouth daily. [...] Kit 11/18/2017 Active Blood Glucose Monitoring Suppl ([employer] VERIO) w/Device KIT Use as directed. Use as directed. 1 Kit 10/31/2018 Active Spacer/Aero-Holding Chambers WISAM Use with inhaler. Wheezing/bronchitis . 1 Device 04/08/2019 Active Lancet Devices (nCircle Network SecurityTOUCH DELICA LANCING DEV) MISC Use four times [...] minutes 25 Tablet 5 10/16/2023 Active Nystatin 137760 UNIT/GM External Powder (Nystop)Indications :Candidal intertrigo Apply topically to affected area 3 times a day. Apply to right breast until rash resolved. 30 g 10/16/2023 Active Nystatin 372430 UNIT/ML Mouth/Throat Suspension SWISH AND SWALLOW 5ML IN THE MORNING AND 5ML AT NOON AND 5 ML IN THE EVENING AND 5ML BEFORE BEDTIME, FOR THRUSH 240 mL 1 10/16/2023 Active Metoprolol Succinate ER 25 MG Oral Tablet Extended Release 24 Hour (toPROL XL)Indications:HTN, goal below 130/80 TAKE 1 TABLET BY MOUTH EVERY MORNING 90 Tablet 10/25/2023 Active Vitamin D (Ergocalciferol) 1.25 MG (62658 UT) Oral Capsule (Drisdol)Indication s:Vitamin D deficiency [...] Oral Tablet (Demadex)Indication s:Atherosclerotic heart disease of [place] coronary artery with other forms of angina [...] mg daily Coronary artery disease invo lving [place] coronary artery of [place] heart without angina pectoris 11/15/2021 Last Assessment & Plan: Stable. No angina -continue toprol, ASA and statin Seasonal allergies 11/15/2021 Recurrent UTI 10/07/2021 Last Assessment & Plan: Followed by urology Pt is supposed to be on methenamine--will need to clarify with dgt that she is giving this. 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-international student counselor and ID Type 2 diabetes mellitus [...] 01/16/22 Moderate aortic stenosis 05/06/2018 Anxiety 08/05/2017 Apgqzer-Ftzyd-Sshla disease 06/27/2015 Last Assessment & Plan: Frequent [...] liver 05/06/2018 Atherosclerotic heart diseas e of [place] coronary artery with other forms of angina [...] stenosis 10/31/2010 08/28/2018 Acute coronary syndrome 10/30/201001/04 [place] Research Other*[id number] 02/02/2010 04/18/2014 Overview: [place] Registry, Dr Joel Kwon PI Obesity, morbid [...] No 11/24/2023 Does the household have a [facility] source of income? (Household - for [...] verbalized understanding of same. Judy FRIEDMAN, RN [facility] Intake Triage Coordinator [phone] * Telephone Encounter - Judy Montoya RN - 01/10/2024 9:45 AM EDT Images from the original note were not included. [facility] plate mill hand Acute Call Date: 01/10/2024 Time: 10:10 AM Name: Angelina Ballard : 1950 Caller: Pt called database security expert this morning, [facility] plate mill hand doing a f/u call Relationship to Chief Complaint Patient presents with [facility]: Acute HPI: Angelina Ballard is a 73 year old female that is calling [facility] Intake to report suprapubic catheter [...] email a picture of same to this plate mill hand. Pain Has pain Pain level: not quantified [...] given over the phone Will send to marketing manager health communications Provider for any recommendations Call back instructions provided to patient. Judy FRIEDMAN, RN [facility] Intake Triage Coordinator [phone] documented in this encounter Plan of Treatment Upcoming Encounters Date Type Department Care Team (Late st Contact Info) Description 01/16/2024 9:45 AM EDT Office Visit Urology Kimberly Harmon [address] [place] [address] [address] Alfredo Panda MD [place] [address] 01/26/2024 3:45 PM EDT Procedure Only Urology, [address] [place] [address] Alfredo Ordoñez MD [address] [place] [address] 02/09/2024 9:00 AM EDT [facility], [facility] [address] [facility] [place] [address] Kirby Valenzuela PA-C [facility] [address] 02/25/2024 11:00 AM EDT Office Visit Cardiology, [facility] [place] [address] Haydee Pop CRNP [address] [facility] [place] [address] 03/02/2024 4:00 PM EDT Imaging Radiology, [place] [address] [place] [address] 06/08/2024 6:00 PM EST Office Visit [facility] [address] [place] [id number] Brian Domínguez MD [address] [place] [address] Scheduled Procedures Name Priority Associated Diagnoses Date/Ti [...] 06/10/2021, 08/29/2020, 08/01/2020 CKD PHOS USE SMARTSET 59431 10/24/202310/05, 02/18/2022, 02/17/2022, Additional history exists Influenza [...] Additional history exists CKD HGB USE SMARTSET 37948 12/10/202412/10, 08/04/2023, 08/04/2023, Additional history exists O2 [...] this encounter Medical Devices Implanted Type Area Coater Operator Insulation Board Device Identifier Shelf Expiration Date Model / Serial / Lot Sut Steel 6 M654g - [id number] Implanted:Qty: 3 on 02/15/2011 at [place] [facility] [place] N/A: Chest DO NOT USE 01/15/2015 M654G / / [id number] Band Magdy 225-241 - [id number] Implanted:Qty: 1 on 02/15/2011 at OR [facility] N/A: Chest [employer] 225-241 / / [id number] Sut Steel 6 M654g - [id number] Implanted:Qty: 1 on 02/15/2011 at OR [facility] N/A: Chest DO NOT USE 07/21/2015 M654G / / [id number] documented as of this encounter Advance Directives Documents on File Type Date Recorded Patient Remote Advisor Expl anation POLST 05/06/2018 POLST * Full [...] Child Health Care Agent Care Teams Wire Frame Lampshade Maker Relationship Specialty Start Date End Date Brian Domínguez MD [address] [place] [address] PCP - General Family Medicine 07/16/17 documented as of this encounter
--- OUTSIDE RECORDS SUMMARY | 2024-03-03 08:10 | External Medical Summary | Summary of Care ---
Author Name Unknown Organization [facility] Address [address] [facility] [place] [address] Phone [phone] Care Team Providers Care Commercial Specialist Name Role Phone Brian Domínguez MD Primary Care Provider +1- [phone] Reason for Visit * Reason Onset Date Comments [facility]: Maintenance 01/09/2024 Encounter Details Date Type Department Care Team (Late st Contact Info) Description 01/09/2024 Telephone [facility], [facility] [address] [place] [address] Al Doyle, RN [address] [place] [address] [facility]: Maintenance Allergies Active Allergy Reactions Criticality Noted Date Comments Propoxyphene Hcl Rash Low 10/29/2010 Fentanyl Diarrhea Low 04/26/2010 anxiety Methocarbamol Medium 10/05/2020 Other reaction(s): Delirium Methocarbamol Low 04/15/2007 Zolpidem Low 10/05/2020 Other reaction(s): Confusion documented as of this encounter (statuses as of 01/09/2024) Medications Medication Sig Dispensed Refills Start Date End Date Status venlafaxine XR (EFFEXOR XR) 150 MG [id number]:Dep ression Take 1 Cap by mouth daily. [...] Kit 11/18/2017 Active Blood Glucose Monitoring Suppl (Nektar TherapeuticsUCH VERIO) w/Device KIT Use as directed. Use as directed. 1 Kit 10/31/2018 Active Spacer/Aero-Holding Chambers WISAM Use with inhaler. Wheezing/bronchitis . 1 Device 04/08/2019 Active Lancet Devices (Disruptor BeamTOUCH DELICA LANCING DEV) MISC Use four times [...] minutes 25 Tablet 5 10/16/2023 Active Nystatin 103902 UNIT/GM External Powder (Nystop)Indications :Candidal intertrigo Apply topically to affected area 3 times a day. Apply to right breast until rash resolved. 30 g 10/16/2023 Active Nystatin 883744 UNIT/ML Mouth/Throat Suspension SWISH AND SWALLOW 5ML IN THE MORNING AND 5ML AT NOON AND 5 ML IN THE EVENING AND 5ML BEFORE BEDTIME, FOR THRUSH 240 mL 1 10/16/2023 Active Metoprolol Succinate ER 25 MG Oral Tablet Extended Release 24 Hour (toPROL XL)Indications:HTN, goal below 130/80 TAKE 1 TABLET BY MOUTH EVERY MORNING 90 Tablet 10/25/2023 Active Vitamin D (Ergocalciferol) 1.25 MG (53325 UT) Oral Capsule (Drisdol)Indication s:Vitamin D deficiency [...] (Demadex)Indication s:Atherosclerotic heart disease of [place] coronary artery with other forms of angina pectoris (HCC),Hypertensive heart disease with chronic diastolic congestive heart failure (HCC) TAKE 1 TABLET BY MOUTH EVERY MORNING. MAY TAKE 1 ADDITIONAL TABLET NEEDED FOR SWELLING. 90 Tablet 1 01/06/2024 Active documented as of this encounter (statuses as of 01/09/2024) Active Problems Problem Noted Date Diagnosed Date [...] mg daily Coronary artery disease invo lving [place] coronary artery of [place] heart without angina pectoris 11/15/2021 Last Assessment & Plan: Stable. No angina -continue toprol, ASA and statin Seasonal allergies 11/15/2021 Recurrent UTI 10/07/2021 Last Assessment & Plan: Followed by urology Pt is supposed to be on methenamine--will need to clarify with dgt that she is giving this. 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-clinical nurse leader and ID Type 2 diabetes mellitus wit [...] for medical terminology (current) use of insulin 09/29/2019 Diabetic gastroparesis [...] 01/16/22 Moderate aortic stenosis 05/06/2018 Anxiety 08/05/2017 Hxncsnw-Yvvye-Cdamw disease 06/27/2015 Last Assessment & Plan: Frequent [...] as of this encounter (statuses as of 01/09/2024) Resolved Problems Problem Noted Date Diagnosed Date [...] liver 05/06/2018 Atherosclerotic heart diseas e of [place] coronary artery with other forms of angina [...] stenosis 10/31/2010 08/28/2018 Acute coronary syndrome 10/30/201001/04 [place] Research Other*[id number] 02/02/2010 04/18/2014 Overview: [place] Registry, Dr Joel Kwon PI Obesity, morbid [...] faculty for medical terminology current use of ant icoagulant therapy 06/17/2006 [...] as of this encounter (statuses as of 01/09/2024) Immunizations Name Administration Dates Next Due COVID-19 [...] No 11/24/2023 Does the household have a [facility] source [facility] income? (Household - [...] Telephone Encounter - Judy Montoya RN - 01/09/2024 4:00 PM EDT Received call from pt who states that her blood sugar is now 93. She states that she feels "goofy" as she is used to her blood sugar being between 140- 150. She admits to having some shakiness and states that she did not eat lunch today. Advised pt to eat something healthy now that has some carbs. Stay hydrated. If she is concerned that some of her shakiness may be from her anxiety then take another Klonopin now as she is allowed onetab TID and has only taken one dose so far today. The pt verbalized understanding of all the above. Judy FRIEDMAN, KAT [facility] Intake Triage Coordinator [phone] * Telephone Encounter - Al Doyle RN - 01/09/2024 2:29 PM EDT Reached out to [facility] at pt request. Pt should take all medications as directed. No changes in DM medications at this time. Called pt to make aware to continue all medications as directed, pt verbalized understanding. Reinforced to call [facility] if BS rises above 300 or below at [phone] or with any red flags, changes in condition, or concerns. * Telephone Encounter - Jessica Lehman LPN - 01/09/2024 12:36 PM EDT Received CB from pts dtr reporting BP 109 about 1 hr post a yogurt. She still feels shaky but feelsits r/t her anxiety. She takes Klonopin TID - LD was ~ 0730 this AM * Telephone Encounter - Al Doyle RN - 01/09/2024 10:38 AM EDT Placed TPC to pt to ensure that she did take BS after 15 mins Pt had not taken BS yet Took BS while on phone with this RN BS now 137 Pt stating that she currently feels dizzy and is having some shakiness Pt states that she has a hair appt at 12:30 that she intends to go to This RN will reach out to [facility] and notify of large variability in BS and pt current S/S for recommendations. Pt instructed to take BS again in 30 minutes at 11:30 and call [facility] if BS is below 100 or above 300 or if symptoms persist, pt verbalized understanding. documented in this encounter Plan of Treatment Upcoming Encounters Date Type Department Care Team (Late st Contact Info) Description 01/16/2024 9:45 AM EDT Office Visit Urology Kimberly Harmon [address] [facility] [address] [place] [address] Alfredo Panda MD [address] [place] [address] 01/26/2024 3:45 PM EDT Procedure Only Urology, [facility] [address] [address] [address] Alfredo Panda MD [address] [address] 02/09/2024 9:00 AM EDT Home Visit [facility] [address] [address] Kirby Valenzuela PA-C [address] [place] [address] 02/25/2024 11:00 AM EDT Office Visit Cardiology, [facility] [address] [address] [address] Haydee Pop CRNP [address] [place] [address] 03/02/2024 4:00 PM EDT Imaging Radiology, [facility] [address] [facility] [address] 06/08/2024 6:00 PM EST [facility] Visit [facility] [address] [facility] [address] Brian Domínguez MD [address] [facility] [place] [id number] Scheduled Procedures Name Priority Associated Diagnoses Date/Ti [...] 06/10/2021, 08/29/2020, 08/01/2020 CKD PHOS USE SMARTSET 82059 10/24/202310/05, 02/18/2022, 02/17/2022, Additional history exists Influenza [...] Additional history exists CKD HGB USE SMARTSET 91693 12/10/202412/10, 08/04/2023, 08/04/2023, Additional history exists O2 [...] this encounter Medical Devices Implanted Type Area School Physical Therapist Device Identifier Shelf Expiration Date Model / Serial / Lot Jenna Rojas 6 M654g - [id number] Implanted:Qty: 3 on 02/15/2011 [place] [facility] [place]/A: Chest DO NOT USE 01/15/2015 M654G / / [id number] Band [facility] 225-241 - [id number] Implanted:Qty: 1 on 02/15/2011 at OR [facility] N/A: Chest [employer] 225-241 / / [id number] Sut Steel 6 M654g - [id number] Implanted:Qty: 1 on 02/15/2011 at [place] [facility] N/A: Chest DO NOT USE 07/21/2015 M654G / / [id number] documented as of this encounter Advance Directives Documents on File Type Date Recorded Patient Acute Care Nursing Assistant Expl anation POLST 05/06/2018 POLST * Full [...] Adult Child Health Care Agent Care Teams Commercial Specialist Relationship Specialty Start Date End Date Brian Domínguez MD [address] [place] [address] PCP - General Family Medicine 07/16/17 documented as of this encounter
--- OUTSIDE RECORDS SUMMARY | 2024-03-03 08:10 | External Medical Summary | Summary of Care ---
Author Name Unknown Organization [facility] Address [address] [facility] [place] [address] Phone [phone] Care Team Providers Care Herb Digger Name Role Phone Brian Domínguez MD Primary Care Provider +1- [phone] Reason for Visit * Reason Onset Date Comments [facility]: Maintenance 01/10/2024 Encounter Details Date Type Department Care Team (Late st Contact Info) Description 01/10/2024 Telephone [facility], [facility] [address] [place] [address] [facility], Nurse [address] [place] [id number] [facility]: Maintenance Allergies Active Allergy Reactions Criticality Noted Date Comments Propoxyphene Hcl Rash Low 10/29/2010 Fentanyl Diarrhea Low 04/26/2010 anxiety Methocarbamol Medium 10/05/2020 Other reaction(s): Delirium Methocarbamol Low 04/15/2007 Zolpidem Low 10/05/2020 Other reaction(s): Confusion documented as of this encounter (statuses as of 01/10/2024) Medications Medication Sig Dispensed Refills Start Date End Date Status venlafaxine XR (EFFEXOR XR) 150 MG [id number]:Dep ression Take 1 Cap by mouth daily. [...] Kit 11/18/2017 Active Blood Glucose Monitoring Suppl ([employer] VERIO) w/Device KIT Use as directed. Use as directed. 1 Kit 10/31/2018 Active Spacer/Aero-Holding Chambers WISAM Use with inhaler. Wheezing/bronchitis . 1 Device 04/08/2019 Active Lancet Devices (EnterMediaTOUCH DELICA LANCING DEV) MISC Use four times [...] INSTRUCTIONS Please arrange for as needed Home group home visit for obtaining straight cath urine [...] minutes 25 Tablet 5 10/16/2023 Active Nystatin 990024 UNIT/GM External Powder (Nystop)Indications :Candidal intertrigo Apply topically to affected area 3 times a day. Apply to right breast until rash resolved. 30 g 10/16/2023 Active Nystatin 324679 UNIT/ML Mouth/Throat Suspension SWISH AND SWALLOW 5ML IN THE MORNING AND 5ML AT NOON AND 5 ML IN THE EVENING AND 5ML BEFORE BEDTIME, FOR THRUSH 240 mL 1 10/16/2023 Active Metoprolol Succinate ER 25 MG Oral Tablet Extended Release 24 Hour (toPROL XL)Indications:HTN, goal below 130/80 TAKE 1 TABLET BY MOUTH EVERY MORNING 90 Tablet 10/25/2023 Active Vitamin D (Ergocalciferol) 1.25 MG (04223 UT) Oral Capsule (Drisdol)Indication s:Vitamin D deficiency [...] Oral Tablet (Demadex)Indication s:Atherosclerotic heart disease of [place] coronary artery with other forms of angina [...] mg daily Coronary artery disease invo lving [place] coronary artery of [place] heart without angina pectoris 11/15/2021 Last Assessment & Plan: Stable. No angina -continue toprol, ASA and statin Seasonal allergies 11/15/2021 Recurrent UTI 10/07/2021 Last Assessment & Plan: Followed by urology Pt is supposed to be on methenamine--will need to clarify with dgt that she is giving this. Pt also to see uro-customs and border protection officer and ID Type 2 diabetes mellitus [...] 01/16/22 Moderate aortic stenosis 05/06/2018 Anxiety 08/05/2017 Vuftcis-Ffrqb-Gwcex disease 06/27/2015 Last Assessment & Plan: Frequent [...] liver 05/06/2018 Atherosclerotic heart diseas e of [place] coronary artery with other forms of angina [...] stenosis 10/31/2010 08/28/2018 Acute coronary syndrome 10/30/201001/04 [place] Research Other*[id number] 02/02/2010 04/18/2014 Overview: [place] [facility], Dr Joel Kwon PI Obesity, morbid [...] No 11/24/2023 Does the household have a [facility] source of income? (Household - for ages [...] 8:53 AM EDT Received Teams message from pharmaceutical worker re: Woke up soaked twice since having suprapubic catheter placed 12/24/23 F/U [facility] scheduled for today. Judy FRIEDMAN, RN [facility] Intake Triage Coordinator [phone] documented in this encounter Plan of Treatment Upcoming Encounters Date Type Department Care Team (Late st Contact Info) Description 01/10/2024 9:45 AM EDT Scheduled Telephone [facility], [facility] [address] [place] [address] [facility], Nurse [facility] 132 [place] [address] 01/16/2024 9:45 AM EDT Office Visit Urology Kimberly Harmon [address] [facility] [address] [place] [address] Alfredo Panda MD 27 [place] [address] 01/26/2024 3:45 PM EDT Procedure Only Urology, [facility] 132 [place] [address] Alfredo Panda MD 27 [place] [address] 02/09/2024 9:00 AM EDT Home Visit [facility], [facility] 132 [place] [address] Kirby Valenzuela PA-C 132 [place] [address] 02/25/2024 11:00 AM EDT Office Visit Cardiology, [facility] 132 [place] [address] Haydee Pop, PATIENT CARE REPRESENTATIVE [address] [place] [address] 03/02/2024 4:00 PM EDT Imaging Radiology, [place] [address] [facility] [address] 06/08/2024 6:00 PM EST Office Visit Family [facility] [address] [facility] [address] Brian Domínguez MD [address] [place] [facility] [place] [address] Scheduled Procedures Name Priority Associated Diagnoses [...] 06/10/2021, 08/29/2020, 08/01/2020 CKD PHOS USE SMARTSET 53833 10/24/202310/05, 02/18/2022, 02/17/2022, Additional history exists Influenza [...] Additional history exists CKD HGB USE SMARTSET 83434 12/10/202412/10, 08/04/2023, 08/04/2023, Additional history exists O2 [...] this encounter Medical Devices Implanted Type Area Presentation Specialist Device Identifier Shelf Expiration Date Model / Serial / Lot Sut Steel 6 M654g - [id number] Implanted:Qty: 3 on 02/15/2011 at OR [facility] N/A: Chest DO NOT USE 01/15/2015 M654G / / [id number] Band Magdy 225-241 - [id number] Implanted:Qty: 1 on 02/15/2011 at OR [facility] N/A: Chest [employer] 225-241 / / [id number] Sut Steel 6 M654g - [id number] Implanted:Qty: 1 on 02/15/2011 at OR [facility] N/A: Chest DO NOT USE 07/21/2015 M654G / / [id number] documented as of this encounter Advance Directives Documents on File Type Date Recorded Patient Assistant Finance Director Expl anation POLST 05/06/2018 POLST * Full [...] Adult Child Health Care Agent Care Teams Herb Digger Relationship Specialty Start Date End Date Brian Domínguez MD [address] [place] [address] PCP - General Family Medicine 07/16/17 documented as of this encounter
--- OUTSIDE RECORDS SUMMARY | 2024-03-03 08:10 | External Medical Summary | Summary of Care ---
Author Name Unknown Organization [facility] Address [address] [facility] [place] [address] Phone [phone] Care Team Providers Care Barrel Rifler Hook Name Role Phone Brian Domínguez MD Primary Care Provider +1- [phone] Reason for Visit * Reason Onset Date Comments [facility]: Maintenance 01/09/2024 Encounter Details Date Type Department Care Team (Late st Contact Info) Description 01/09/2024 Telephone [facility], [facility] [address] [employer] [address] [place] [address] Al Doyle, RN [address] [employer] [place] [address] [facility]: Maintenance Allergies Active Allergy Reactions Criticality Noted Date Comments Propoxyphene Hcl Rash Low 10/29/2010 Fentanyl Diarrhea Low 04/26/2010 anxiety Methocarbamol Medium 10/05/2020 Other reaction(s): Delirium Methocarbamol Low 04/15/2007 Zolpidem Low 10/05/2020 Other reaction(s): Confusion documented as of this encounter (statuses as of 01/09/2024) Medications Medication Sig Dispensed Refills Start Date End Date Status venlafaxine XR (EFFEXOR XR) 150 MG BY25Cvjbvorbbpu:Dep ression Take 1 Cap by mouth daily. [...] Kit 11/18/2017 Active Blood Glucose Monitoring Suppl ([employer]CH VERIO) w/Device KIT Use as directed. Use as directed. 1 Kit 10/31/2018 Active Spacer/Aero-Holding Chambers WISAM Use with inhaler. Wheezing/bronchitis . 1 Device 04/08/2019 Active Lancet Devices (Nouveaux RicheTOUCH DELICA LANCING DEV) MISC Use four times [...] INSTRUCTIONS Please arrange for as needed Home long term visit for obtaining straight cath urine sample [...] minutes 25 Tablet 5 10/16/2023 Active Nystatin 444172 UNIT/GM External Powder (Nystop)Indications :Candidal intertrigo Apply topically to affected area 3 times a day. Apply to right breast until rash resolved. 30 g 10/16/2023 Active Nystatin 366516 UNIT/ML Mouth/Throat Suspension SWISH AND SWALLOW 5ML IN THE MORNING AND 5ML AT NOON AND 5 ML IN THE EVENING AND 5ML BEFORE BEDTIME, FOR THRUSH 240 mL 1 10/16/2023 Active Metoprolol Succinate ER 25 MG Oral Tablet Extended Release 24 Hour (toPROL XL)Indications:HTN, goal below 130/80 TAKE 1 TABLET BY MOUTH EVERY MORNING 90 Tablet 10/25/2023 Active Vitamin D (Ergocalciferol) 1.25 MG (81296 UT) Oral Capsule (Drisdol)Indication s:Vitamin D deficiency [...] Oral Tablet (Demadex)Indication s:Atherosclerotic heart disease of [place] coronary artery with other forms of [...] mg daily Coronary artery disease invo lving [place] coronary artery of [place] heart without angina pectoris 11/15/2021 Last Assessment & Plan: Stable. No angina -continue toprol, ASA and statin Seasonal allergies 11/15/2021 Recurrent UTI 10/07/2021 Last Assessment & Plan: Followed by urology Pt is supposed to be on methenamine--will need to clarify with dgt that she is giving this. 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/2014 polygraph examiner current use of ant icoagulant therapy 06/17/2006 [...] No 11/24/2023 Does the household have a [facility] source of income? (Household - for [...] 01/09/2024 2:29 PM EDT Reached out to [facility] at pt request. Pt should take all medications as directed. No changes in DM medications at this time. Called pt to make aware to continue all medications as directed, pt verbalized understanding. Reinforced to call [facility] if BS rises above 300 or below at [phone] or with any red flags, changes in [...] to This RN will reach out to [facility] and notify of large variability in BS and pt current S/S for recommendations. Pt instructed to take BS again in 30 minutes at 11:30 and call [facility] if BS is below 100 or above 300 or if symptoms persist, pt verbalized understanding. documented in this encounter Plan of Treatment Upcoming Encounters Date Type Department Care Team (Late st Contact Info) Description 01/16/2024 9:45 AM EDT Office Visit Urology Kimberly Harmon [address] [place] [address] Alfredo Panda MD 27 [place] [address] 01/26/2024 3:45 PM EDT Procedure Only Urology, [facility] 132 [facility] [address] Alfredo Panda MD 27 [place] [address] 02/09/2024 9:00 AM EDT [facility] 132 [facility] [place] [address] Kirby Valenzuela PA-C [address] [facility] [place] [place] [address] 02/25/2024 11:00 AM EDT Office Visit Cardiology, [facility] 132 [place] [address] Haydee Pop CRNP 132 [place] [address] 03/02/2024 4:00 PM EDT Imaging Radiology, [address] [place] [address] 06/08/2024 6:00 PM EST Office Visit [facility] [address] [place] [id number] Brian Domínguez MD [address] [place] [address] Scheduled Procedures Name Priority Associated Diagnoses Date/Ti [...] 06/10/2021, 08/29/2020, 08/01/2020 CKD PHOS USE SMARTSET 67475 10/24/202310/05, 02/18/2022, 02/17/2022, Additional history exists Influenza [...] Additional history exists CKD HGB USE SMARTSET 83996 12/10/202412/10, 08/04/2023, 08/04/2023, Additional history exists O2 [...] this encounter Medical Devices Implanted Type Area Peoplesoft Financial Developer Device Identifier Shelf Expiration Date Model / Serial / Lot Sut Steel 6 M654g - [id number] Implanted:Qty: 3 on 02/15/2011 at [place] [facility] N/A: Chest DO NOT USE 01/15/2015 M654G / / [id number] Band Magdy 225-241 - [id number] Implanted:Qty: 1 on 02/15/2011 at [place] [facility] N/A: Chest [employer] 225-241 / / [id number] Sut Steel 6 M654g - [id number] Implanted:Qty: 1 on 02/15/2011 at [place] [facility] N/A: Chest DO NOT USE 07/21/2015 M654G / / [id number] documented as of this encounter Advance Directives Documents on File Type Date Recorded Patient Flatbed Driver Expl anation POLST 05/06/2018 POLST * [...] Adult Child Health Care Agent Care Teams Barrel Rifler Hook Relationship Specialty Start Date End Date Brian Domínguez MD [address] [place] [address] PCP - General Family Medicine 07/16/17 documented as of this encounter
--- OUTSIDE RECORDS SUMMARY | 2024-03-03 08:10 | External Medical Summary | Summary of Care ---
Author Name Unknown Organization [facility] Address [address] [facility] [place] [address] Phone [phone] Care Team Providers Care Supply Requirements Officer Name Role Phone Carmen Sifuentes MD Primary Care Provider +1- [phone] Reason for Visit * Reason Onset Date Comments [facility]: Maintenance 01/01/2024 Encounter Details Date Type Department Care Team (Late st Contact Info) Description 01/01/2024 Telephone [facility], [facility] 132 [facility] [place] [address] [facility], Nurse [facility] 132 [facility] [place] [address] [facility]: Maintenance Allergies Active Allergy Reactions Criticality Noted Date Comments Propoxyphene Hcl Rash Low 10/29/2010 Fentanyl Diarrhea Low 04/26/2010 anxiety Methocarbamol Medium 10/05/2020 Other reaction(s): Delirium Methocarbamol Low 04/15/2007 Zolpidem Low 10/05/2020 Other reaction(s): Confusion documented as of this encounter (statuses as of 01/09/2024) Medications Medication Sig Dispensed Refills Start Date End Date Status venlafaxine XR (EFFEXOR XR) 150 MG FH30Nvvewsxjegl:De pression Take 1 Cap by mouth daily. [...] 11/19/19 18 Active Blood Glucose Monitoring Suppl ([employer] VERIO) w/Device KIT Use as directed. Use as directed. 1 Kit 11/01/19 19 Active Spacer/Aero-Holdin g Chambers WISAM Use with inhaler. Wheezing/bronchit is. 1 Device 04/08/20 19 Active Lancet Devices (SilverPushTOUCH DELICA LANCING DEV) MISC Use four times [...] BEDTIME 180 Tablet 1 10/07/19 24 Active Tamsulosin HCl 0.4 MG Oral Capsule (Flomax) TAKE 1 CAPSULE BY MOUTH EVERY MORNING 90 Capsule 10/15/19 24 Active Gabapentin 300 MG Oral Capsule (Neurontin)Indicat ions:Lumbar spondylosis TAKE 1 CAPSULE BY MOUTH TWICE DAILY 60 Capsule 5 10/14/19 24 Active Nitroglycerin 0.4 MG Sublingual Tablet Sublingual (Nitrostat)Indicat ions:Chronic coronary artery disease Place 1 Tablet under the tongue every 5 minutes as needed for Pain, Chest. Max dose 3 tablets in 15 minutes 25 Tablet 5 10/16/19 24 Active Nystatin 919829 UNIT/GM External Powder (Nystop)Indication s:Candidal intertrigo Apply topically to affected area 3 times a day. Apply to right breast until rash resolved. 30 g 10/16/19 24 Active Nystatin 107296 UNIT/ML Mouth/Throat Suspension SWISH AND SWALLOW 5ML [...] 24 Active Vitamin D (Ergocalciferol) 1.25 MG (79626 UT) Oral Capsule (Drisdol)Indicatio ns:Vitamin D deficiency [...] Oral Tablet (Demadex)Indicatio ns:Atherosclerotic heart disease of [place] coronary artery with other forms of angina [...] 1 09/08/19 24 024 Discontinued(Me dication/Dose Changed) Cefdinir 300 MG Oral Capsule (Omnicef) Take [...] mg daily Coronary artery disease invo lving [place] coronary artery of [place] heart without angina pectoris 11/15/2021 Last Assessment & Plan: Stable. No angina -continue toprol, ASA and statin Seasonal allergies 11/15/2021 Recurrent UTI 10/07/2021 Last Assessment & Plan: Followed by urology Pt is supposed to be on methenamine--will need to clarify with dgt that she is giving this. 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 09/29/2019 Diabetic gastroparesis [...] 01/16/22 Moderate aortic stenosis 05/06/2018 Anxiety 08/05/2017 Cpncdkf-Alleo-Ejpxz disease 06/27/2015 Last Assessment & Plan: Frequent [...] liver 05/06/2018 Atherosclerotic heart diseas e of [place] coronary artery with other forms of angina [...] stenosis 10/31/2010 08/28/2018 Acute coronary syndrome 10/30/201001/04 [place] Research Other*[id number] 02/02/2010 04/18/2014 Overview: [place] [facility], Dr Joel Kwon PI Obesity, morbid [...] 01/21/2014 terminal block assembler current use of ant icoagulant therapy 06/17/2006 [...] to patient andthat I would send a [facility]med[facility] message as well. * Addendum Note - [...] Office Visit Urology Kimberly Harmon [address] [facility] [address] [place] [address] Alfredo Panda MD [place] [address] 01/26/2024 3:45 PM EDT Procedure Only Urology, [facility] 132 [facility] [place] [address] Alfredo Panda MD 27 [place] [address] 02/09/2024 9:00 AM EDT Home Visit [facility], [facility] 132 [facility] [place] [address] Kirby Valenzuela PA-C [address] [place] [address] 02/25/2024 11:00 AM EDT Office Visit Cardiology, [facility] [place] [address] Haydee Pop CRNP 132 [facility] [place] [address] 03/02/2024 4:00 PM EDT Imaging Radiology, [place] [address] [place] [address] 06/08/2024 6:00 PM EST Office Visit [facility] [address] [place] [id number] Carmen Sifuentes MD [address] [place] [address] Scheduled Procedures Name Priority Associated Diagnoses Date/Ti [...] 06/10/2021, 08/29/2020, 08/01/2020 CKD PHOS USE SMARTSET 49971 10/24/202310/05, 02/18/2022, 02/17/2022, Additional history exists Influenza [...] Additional history exists CKD HGB USE SMARTSET 49797 12/10/202412/10, 08/04/2023, 08/04/2023, Additional history exists O2 [...] this encounter Medical Devices Implanted Type Area Assembly Inspector Device Identifier Shelf Expiration Date Model / Serial / Lot Jenna Rojas 6 M654g - [id number] Implanted:Qty: 3 on 02/15/2011 at OR [facility] N/A: Chest DO NOT USE 01/15/2015 M654G / / [id number] Band Magdy 225-241 - [id number] Implanted:Qty: 1 on 02/15/2011 at OR [facility] N/A: Chest [employer] 225-241 / / [id number] Sut Steel 6 M654g - [id number] Implanted:Qty: 1 on 02/15/2011 at OR [facility] N/A: Chest DO NOT USE 07/21/2015 M654G / / [id number] documented as of this encounter Visit Diagnoses Diagnosis Type 2 diabetes mellitus with diabetic neuropathy, with long-term current use of insulin (HCC)- Primary documented in this encounter Advance Directives Documents on File Type Date Recorded Patient Operations Associate Expl anation POL 05/06/2018 POLST * Full [...] Agents on File Name Relationship Healthcare Agent [facility] Communication Carolyn Ballard Adult Child Health Care Agent Care Teams Supply Requirements Officer Relationship Specialty Start Date End Date Carmen Sifuentes MD [address] [place] [address] PCP - General Family Medicine 07/16/17 documented as of this encounter
--- OUTSIDE RECORDS SUMMARY | 2024-03-03 08:10 | External Medical Summary | Summary of Care ---
Author Name Unknown Organization [facility] Address [address] [facility] [place] [address] Phone [phone] Care Team Providers Care Business Associate Name Role Phone Brian Domínguez MD Primary Care Provider [phone]- [phone] Reason for Visit * Reason Onset Date Comments [facility]: Maintenance 01/09/2024 Encounter Details Date Type Department Care Team (Late st Contact Info) Description 01/09/2024 Telephone [facility], [facility] [address] [employer] [address] [place] [address] Al Doyle, RN [address] [employer] [place] [address] [facility]: Maintenance Allergies Active Allergy Reactions Criticality Noted Date Comments Propoxyphene Hcl Rash Low 10/29/2010 Fentanyl Diarrhea Low 04/26/2010 anxiety Methocarbamol Medium 10/05/2020 Other reaction(s): Delirium Methocarbamol Low 04/15/2007 Zolpidem Low 10/05/2020 Other reaction(s): Confusion documented as of this encounter (statuses as of 01/09/2024) Medications Medication Sig Dispensed Refills Start Date End Date Status venlafaxine XR (EFFEXOR XR) 150 MG [id number]:Dep ression Take 1 Cap by mouth daily. [...] Kit 11/18/2017 Active Blood Glucose Monitoring Suppl (Integrated Ordering SystemsUCH VERIO) w/Device KIT Use as directed. Use as directed. 1 Kit 10/31/2018 Active Spacer/Aero-Holding Chambers WISAM Use with inhaler. Wheezing/bronchitis . 1 Device 04/08/2019 Active Lancet Devices (Silego TechnologyTOUCH DELICA LANCING DEV) MISC Use four [...] minutes 25 Tablet 5 10/16/2023 Active Nystatin 685868 UNIT/GM External Powder (Nystop)Indications :Candidal intertrigo Apply topically to affected area 3 times a day. Apply to right breast until rash resolved. 30 g 10/16/2023 Active Nystatin 295927 UNIT/ML Mouth/Throat Suspension SWISH AND SWALLOW 5ML IN THE MORNING AND 5ML AT NOON AND 5 ML IN THE EVENING AND 5ML BEFORE BEDTIME, FOR THRUSH 240 mL 1 10/16/2023 Active Metoprolol Succinate ER 25 MG Oral Tablet Extended Release 24 Hour (toPROL XL)Indications:HTN, goal below 130/80 TAKE 1 TABLET BY MOUTH EVERY MORNING 90 Tablet 10/25/2023 Active Vitamin D (Ergocalciferol) 1.25 MG (57973 UT) Oral Capsule (Drisdol)Indication s:Vitamin D deficiency [...] Oral Tablet (Demadex)Indication s:Atherosclerotic heart disease of flandreau coronary artery with other forms of angina [...] mg daily Coronary artery disease invo lving flandreau coronary artery of flandreau heart without angina pectoris 11/15/2021 Last Assessment & Plan: Stable. No angina -continue toprol, ASA and statin Seasonal allergies 11/15/2021 Recurrent UTI 10/07/2021 Last Assessment & Plan: Followed by urology Pt is supposed to be on methenamine--will need to clarify with dgt that she is giving this. 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/2014 thread cutter tender current use of ant icoagulant therapy 06/17/2006 [...] No 11/24/2023 Does the household have a lovelace women's hospitallar source of income? (Household - for [...] 01/09/2024 2:29 PM EDT Reached out to [facility] at pt request. Pt should take all medications as directed. No changes in DM medications at this time. Called pt to make aware to continue all medications as directed, pt verbalized understanding. Reinforced to call [facility] if BS rises above 300 or below at [phone] or with any red flags, changes in [...] to This RN will reach out to [facility] and notify of large variability in BS and pt current S/S for recommendations. Pt instructed to take BS again in 30 minutes at 11:30 and call [facility] if BS is below 100 or above 300 or if symptoms persist, pt verbalized understanding. documented in this encounter Plan of Treatment Upcoming Encounters Date Type Department Care Team (Late st Contact Info) Description 01/16/2024 9:45 AM EDT Office Visit Urology Kimberly Harmon [address] [place] [address] Alfredo Panda MD [address] [place] [address] 01/26/2024 3:45 PM EDT Procedure Only Urology, [facility] 132 [place] [address] Alfredo Panda MD [address] [place] [address] 02/09/2024 9:00 AM EDT [facility] [place] 132 [facility] [place] [address] Kirby Valenzuela PA-C 132 [facility] [place] [address] 02/25/2024 11:00 AM EDT Office Visit Cardiology, [facility] 132 [place] [address] Haydee Pop CRNP 132 [facility] [place] [address] 03/02/2024 4:00 PM EDT Imaging Radiology, [address] [place] [address] 06/08/2024 6:00 PM EST Office Visit [facility] [address] [place] [phone] Brian Domínguez MD [address] [place] [address] Scheduled Procedures Name Priority Associated Diagnoses Date/Ti [...] 06/10/2021, 08/29/2020, 08/01/2020 CKD PHOS USE SMARTSET 13445 10/24/202310/05, 02/18/2022, 02/17/2022, Additional history exists Influenza [...] Additional history exists CKD HGB USE SMARTSET 26322 12/10/202412/10, 08/04/2023, 08/04/2023, Additional history exists O2 [...] encounter Medical Devices Implanted Type Area Manager Quality Device Identifier Shelf Expiration Date Model / Serial / Lot Sut Steel 6 M654g - [id number] Implanted:Qty: 3 on 02/15/2011 at OR [facility] N/A: Chest DO NOT USE 01/15/2015 M654G / / [id number] Band Magdy 225-241 - [id number] Implanted:Qty: 1 on 02/15/2011 at OR [facility] N/A: Chest [employer] 225-241 / / [id number] Sut Steel 6 M654g - [id number] Implanted:Qty: 1 on 02/15/2011 at OR [facility] N/A: Chest DO NOT USE 07/21/2015 M654G / / [id number] documented as of this encounter Advance Directives Documents on File Type Date Recorded Patient Fashion Editor Expl anation POLST 05/06/2018 POLST * [...] Agents on File Name Relationship Healthcare Agent [facility] Communication Carolyn Ballard Adult Child Health Care Agent Care Teams Business Associate Relationship Specialty Start Date End Date Brian Domínguez MD [address] [place] [address] PCP - General Family Medicine 07/16/17 documented as of this encounter
--- OUTSIDE RECORDS SUMMARY | 2024-03-03 08:10 | External Medical Summary | Summary of Care ---
Author Name Unknown Organization [facility] Address [address] [facility] [place] [address] Phone [phone] Care Team Providers Care Landfill Gas Technician Name Role Phone Carmen Sifuentes MD Primary Care Provider +1- [phone] Reason for Visit * Reason Onset Date Comments [facility]: Maintenance 01/01/2024 Encounter Details Date Type Department Care Team (Late st Contact Info) Description 01/01/2024 Telephone [facility], [facility] 132 [facility] [place] [address] [facility] [address] [facility] [place] [address] [facility]: Maintenance Allergies Active Allergy Reactions Criticality Noted Date Comments Propoxyphene Hcl Rash Low 10/29/2010 Fentanyl Diarrhea Low 04/26/2010 anxiety Methocarbamol Medium 10/05/2020 Other reaction(s): Delirium Methocarbamol Low 04/15/2007 Zolpidem Low 10/05/2020 Other reaction(s): Confusion documented as of this encounter (statuses as of 01/09/2024) Medications Medication Sig Dispensed Refills Start Date End Date Status venlafaxine XR (EFFEXOR XR) 150 MG PN64Iiytxovkodc:De pression Take 1 Cap by mouth daily. [...] 11/19/19 18 Active Blood Glucose Monitoring Suppl (Biotronics3D VERIO) w/Device KIT Use as directed. Use as directed. 1 Kit 11/01/19 19 Active Spacer/Aero-Holdin g Chambers WISAM Use with inhaler. Wheezing/bronchit is. 1 Device 04/08/20 19 Active Lancet Devices (DLCTOUCH DELICA LANCING DEV) MISC Use four times [...] 25 Tablet 5 10/16/19 24 Active Nystatin 500920 UNIT/GM External Powder (Nystop)Indication s:Candidal intertrigo Apply topically to affected area 3 times a day. Apply to right breast until rash resolved. 30 g 10/16/19 24 Active Nystatin 119564 UNIT/ML Mouth/Throat Suspension SWISH AND SWALLOW 5ML [...] 24 Active Vitamin D (Ergocalciferol) 1.25 MG (40785 UT) Oral Capsule (Drisdol)Indicatio ns:Vitamin D deficiency [...] giving this. Pt also to see uro-ob/gyn nurse and ID Type 2 diabetes mellitus [...] Pelvic pain 03/27/2021 Urge incontinence 03/27/2021 superintendent container terminal (current) use of insulin 09/29/2019 Diabetic gastroparesis [...] 01/16/22 Moderate aortic stenosis 05/06/2018 Anxiety 08/05/2017 Giyybtb-Jdckz-Huyuo disease 06/27/2015 Last Assessment & Plan: Frequent [...] 08/28/2018 Acute coronary syndrome 10/30/201001/04 [place] Research Other*[id number] 02/02/2010 04/18/2014 Overview: [place] [facility], Dr Joel Kwon PI Obesity, morbid [...] Protocol #2. 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/2014 superintendent container terminal current use of ant icoagulant therapy [...] Miscellaneous Notes * Telephone Encounter - Radha Jarquin LPN - 01/09/2024 12:42 PM EDT Left message on machine * Telephone Encounter - Amberly Cherry LPN - 01/02/2024 8:25 AM EDT Attempted to call patients daughter back, no answer lm that I was calling in regards to patient andthat I would send a LIFT12 message as well. * Addendum Note - [...] Team (Late st Contact Info) Description 01/09/2024 1:15 PM EDT Scheduled Telephone [facility] at [facility] [address] [place] [address] Coordinator, [facility] [address] [place] [address] 01/16/2024 9:45 AM EDT Office Visit UrologKimberly [place] [address] [place] [address] Alfredo Panda MD [place] [address] 01/26/2024 3:45 PM EDT Procedure Only Urology, [facility] [address] [place] [address] Alfredo Panda MD [address] [place] [address] 02/09/2024 9:00 AM EDT [facility] Visit [facility] [place], [facility] [address] [facility] [place] [address] Kirby Valenzuela PA-C 132 [facility] [place] [address] 02/25/2024 11:00 AM EDT Office Visit Cardiology, [facility] [address] [place] [address] Haydee Pop CRNP 132 [place] [address] 03/02/2024 4:00 PM EDT Imaging Radiology, [address] [address] 06/08/2024 6:00 PM EST Office Visit [facility] [address] [place] [phone] Carmen Sifuentes MD [address] [place] [address] Scheduled Procedures Name Priority Associated Diagnoses Date/Ti [...] 04/27/2019, Additional history exists COVID-19 Vaccine ( - season) 2023 06/10/2021, 08/29/2020, 08/01/2020 CKD PHOS USE SMARTSET 51203 10/24/202310/05, 02/18/2022, 02/17/2022, Additional history exists Influenza [...] Additional history exists CKD HGB USE SMARTSET 78400 12/10/202412/10, 08/04/2023, 08/04/2023, Additional history exists O2 [...] this encounter Medical Devices Implanted Type Area Appliquer Device Identifier Shelf Expiration Date Model / Serial / Lot Sut Steel 6 M654g - [id number] Implanted:Qty: 3 on 02/15/[address] [facility] N/A: Chest DO NOT USE 01/15/2015 M654G / / [id number] Band Magdy 225-241 - [id number] Implanted:Qty: 1 on 02/15/[address] [facility] N/A: Chest [employer] 225-241 / / [id number] Sut Steel 6 M654g - [id number] Implanted:Qty: 1 on 02/15/[address] [facility] N/A: Chest DO NOT USE 07/21/2015 M654G / / [id number] documented as of this encounter Visit Diagnoses Diagnosis Type 2 diabetes mellitus with diabetic neuropathy, with long-term current use of insulin (HCC)- Primary documented in this encounter Advance Directives Documents on File Type Date Recorded Patient Surveillance Operator Expl anation POLST 05/06/2018 POLST * [...] Relationship Healthcare Agent [facility] Communication Carolyn Ballard Adult Child Health Care Agent Care Teams Landfill Gas Technician Relationship Specialty Start Date End Date Carmen Sifuentes MD [address] [facility] [address] PCP - General Family Medicine 07/16/17 documented as of this encounter
--- OUTSIDE RECORDS SUMMARY | 2024-03-03 08:11 | External Medical Summary | Summary of Care ---
Author Name Unknown Organization [facility] Address [address] [place] [address] Phone [phone] Care Team Providers Care Die Maintenance Name Role Phone Brian Domínguez MD Primary Care Provider [phone]- [phone] Reason for Referral * Evaluate & Treat - Unlimited Visits (Within 30 days (routine)) - Authorized Specialty Diagnoses / Procedures Referred By Mitchell chavez Referred To Contact Pharmacist / Pharmacy Diagnoses Type 2 diabetes mellitus with diabetic neuropathy, with long-term current use of insulin ([facility]) Lizzie Badillo MD [address] [place] [address] Referral ID Status Reason Start Date Expiration Date Visits Requested Visits Authorized [id number] Authorized Specialty Services Required 01/07/2024 07/05/2024 99 99 Question Answer Referral Priority Within 30 days (routine) Where should this appointment be scheduled? [facility] Referring Provider Role: Primary Care Reason for Referral: DM Target A1c: < 8 Comments Pharmacist Medication Therapy Management: Minimum frequency patient should be seen in person for medication management: as appropriate per clinical condition and patient status By my signature, I understand that my patient Angelina Ballard will have her medication therapy managed by the [facility] Medication [facility] ([facility]) per established policies, procedures, and protocols. I also certify that this referral may serve as an initiation of service for the management of drug therapy in the above noted patient. [facility] providers will be responsible for scheduling patient visits, obtaining appropriate laboratory studies, and adjusting medication management therapy per patient's need, in addition to those roles spelled out in the clinic policy, procedures, and drug management protocols. I understand that the service provided by the [facility] is voluntary and have informed patient that they can refuse the service at their discretion. I am aware that the [facility] will provide me with a copy of the patient encounter via my [employer]. I authorize the [facility] to carry out these activities on my behalf. I consider this program to be a necessary part of the patient's medical care. Lizzie Badillo MD Reason for Visit * Reason Onset Date Comments [facility]: Acute 01/07/2024 Encounter Details Date Type Department Care Team (Late st Contact Info) Description 01/07/2024 Telephone [facility], [facility] [address] [facility] [place] [address] [facility], Nurse [facility] [address] [facility] [place] [address] [facility]: Acute Allergies Active Allergy Reactions Criticality Noted Date Comments Propoxyphene Hcl Rash Low 10/29/2010 Fentanyl Diarrhea Low 04/26/2010 anxiety Methocarbamol Medium 10/05/2020 Other reaction(s): Delirium Methocarbamol Low 04/15/2007 Zolpidem Low 10/05/2020 Other reaction(s): Confusion documented as of this encounter (statuses as of 01/07/2024) Medications Medication Sig Dispensed Refills Start Date End Date Status venlafaxine XR (EFFEXOR XR) 150 MG [id number]:Dep ression Take 1 Cap by mouth daily. [...] Kit 11/18/2017 Active Blood Glucose Monitoring Suppl (Rapidlea VERIO) w/Device KIT Use as directed. Use as directed. 1 Kit 10/31/2018 Active Spacer/Aero-Holding Chambers WISAM Use with inhaler. Wheezing/bronchitis . 1 Device 04/08/2019 Active Lancet Devices (CalendlyTOUCH DELICA LANCING DEV) MISC Use four times [...] EVERY MORNING 90 Tablet 3 07/19/2023 Active Best Response StrategiesTouch Verio In Vitro Strip (Glucose Blood)Indications:T ype [...] minutes 25 Tablet 5 10/16/2023 Active Nystatin 318677 UNIT/GM External Powder (Nystop)Indications :Candidal intertrigo Apply topically to affected area 3 times a day. Apply to right breast until rash resolved. 30 g 10/16/2023 Active Nystatin 829076 UNIT/ML Mouth/Throat Suspension SWISH AND SWALLOW 5ML IN THE MORNING AND 5ML AT NOON AND 5 ML IN THE EVENING AND 5ML BEFORE BEDTIME, FOR THRUSH 240 mL 1 10/16/2023 Active Metoprolol Succinate ER 25 MG Oral Tablet Extended Release 24 Hour (toPROL XL)Indications:HTN, goal below 130/80 TAKE 1 TABLET BY MOUTH EVERY MORNING 90 Tablet 10/25/2023 Active Vitamin D (Ergocalciferol) 1.25 MG (15283 UT) Oral Capsule (Drisdol)Indication s:Vitamin D deficiency [...] I disorder, most recent episode depressed, moderate ([facility]) TAKE ONE TABLET BY MOUTH THREE TIMES [...] Oral Tablet (Demadex)Indication s:Atherosclerotic heart disease of [place] coronary artery with other forms of angina pectoris (HCC),Hypertensive heart disease with chronic diastolic congestive heart failure (HCC) TAKE 1 TABLET BY MOUTH EVERY MORNING. MAY TAKE 1 ADDITIONAL TABLET NEEDED FOR SWELLING. 90 Tablet 1 01/06/2024 Active documented as of this encounter (statuses as of 01/07/2024) Active Problems Problem Noted Date Diagnosed Date [...] mg daily Coronary artery disease invo lving [place] coronary artery of [place] heart without angina pectoris 11/15/2021 Last Assessment & Plan: Stable. No angina -continue toprol, ASA and statin Seasonal allergies 11/15/2021 Recurrent UTI 10/07/2021 Last Assessment & Plan: Followed by urology Pt is supposed to be on methenamine--will need to clarify with dgt that she is giving this. Pt also to see uro-floral designer salesperson and ID Type 2 diabetes mellitus wit [...] 01/16/22 Moderate aortic stenosis 05/06/2018 Anxiety 08/05/2017 Nknwsxn-Rflvx-Zpxci disease 06/27/2015 Last Assessment & Plan: Frequent [...] as of this encounter (statuses as of 01/07/2024) Resolved Problems Problem Noted Date Diagnosed Date [...] liver 05/06/2018 Atherosclerotic heart diseas e of [place] coronary artery with other forms of angina [...] stenosis 10/31/2010 08/28/2018 Acute coronary syndrome 10/30/201001/04 [place] [employer] Other*[id number] 02/02/2010 04/18/2014 Overview: [facility] Registry, Dr Joel [...] as of this encounter (statuses as of 01/07/2024) Immunizations Name Administration Dates Next Due COVID-19 [...] have money to get more. Sometimes true 05/ Childcare Answer Date Recorded Do you feel [...] No 11/24/2023 Does the household have a [facility] source of income? (Household - for ages [...] encounter Miscellaneous Notes * Addendum Note - Lizzie Badillo MD - 01/07/2024 10:59 AM EDTAddended by: LIZZIE BADILLO on: 01/07/2024 10:59 AM Modules accepted: Orders * Telephone Encounter - Lizzie Badillo MD - 01/07/2024 10:55 AM EDT I agree w/ triage advice Watermelon will trigger hyperglycemia. RDN input would be appreciated. Recommend DM MTM consult and consider short acting insulin if hyperglycemic episodes persist. Orderplaced. Lizzie Badillo MD, [facility], [place], FAAFP [employer] ([facility]) [facility] on [employer] * Telephone Encounter - Pinky Morales RN - 01/07/2024 9:57 AM EDT [facility] system controller Acute Call Date: 01/07/2024 Time: 9:58 AM Name: Angelina Ballard : 1950 Caller: Carolyn Relationship to pt: daughter Chief Complaint Patient presents with [facility]: Acute HPI: Angelina Ballard is a 73 year old female whose daughter is calling [facility] Intake to reportelevated blood sugars. Nursing Assessment: Patient's chief complaint for this call: Pts daughter Carolyn reports that this am when the pt woke up her blood sugar was reading hi, over 600. Gave pt her am dose of Lantus. Reports pt gets Lantus 35 units at 8am and 4 pm daily Also takes Ozempic weekly injections Metformin ER 500 mg with dinner Carolyn states that she gave pt 40 units instead of ordered 35 due to high sugar. Blood sugar after lantus 352. Carolyn states that the pt has been having higher than normal blood sugars since she was switched from Basaglar to the lantus. Reports pt ate yesterday Cereal for breakfast Soup for lunch Dumplings, sauerkraut and mashed potatoes for dinner Had watermelon as a snack before bed. Pt reports increased fatigue today. denies increase in thirst, urination, nausea, vomiting or confusion. Denies SOB or fruity smelling breath. Pt does not follow with MTM clinic No sliding scale insulin noted Pain Denies pain Baseline Assessment Able to performing ADLs at baseline (walking, daily tasks, etc.): No Chief Complaint is related to a chronic condition: Yes Chronic Condition: DM Chief Complaint is a change in baseline: Yes, uncontrolled blood sugars Patient prescribed oxygen? No Patient has been ordered DME equipment (assistive devices, respiratory equipment, etc.): No Medication Reconciliation: (See medication list) Received flu shot this season: Unknown Taking medication as ordered: Yes Medications ordered/taking to treat reason for call: No Heart failure symptoms: No COPD exacerbation symptoms: No Reinforcement Education: Follow diabetic diet and monitor carb intake. Chose high protein low sugar snack before bedtime Referral placed to RDN for diabetic diet teaching. Treatment/Plan: (need to report) Level of call: Non-Acute Recommended treatment plan: Clinical advice given over the phone Routing to care team to review for recommendations. Call back instructions provided to patient. documented in this encounter Plan of Treatment Upcoming Encounters Date Type Department Care Team (Late st Contact Info) Description 01/16/2024 9:45 AM EDT Office Visit Urology Kimberly Harmon [address] [place] [address] [place] [address] Alfredo Panda MD [address] [place] [address] 01/26/2024 3:45 PM EDT Procedure Only Urology, [facility] [address] [place] [address] Alfredo Panda MD [address] [place] [address] 02/09/2024 9:00 AM EDT Home Visit [facility] [address] [place] [address] Kirby Valenzuela PA-C [address] [place] [address] 02/25/2024 11:00 AM EDT Office Visit Cardiology, [facility] [address] [place] [address] Haydee Pop CRNP [address] [place] [address] 03/02/2024 4:00 PM EDT [address] [address] 06/08/2024 6:00 PM EST Office Visit [facility] [address] [place] [phone] Brian Domínguez MD [address] [place] [address] Scheduled Procedures Name Priority Associated Diagnoses Date/Ti me COLONOSCOPY FLEXIBLE PROXIMA L DIAGNOSTIC Recall Special screening for malignant neoplasms, colon Scheduled Referrals Name Type Priority Associated Diagnoses Orde r Schedule PHARMACIST MEDS THERAPY MGMT REFERRAL OP Referral Within 30 days (routine) Type 2 diabetes mellitus with diabetic neuropathy, with long-term current use of insulin (HCC) Ordered: 01/07/2024 Health Maintenance Due Date Last Done Comments [...] 06/10/2021, 08/29/2020, 08/01/2020 CKD PHOS USE SMARTSET 90612 10/24/202310/05, 02/18/2022, 02/17/2022, Additional history exists Influenza [...] Additional history exists CKD HGB USE SMARTSET 36778 12/10/202412/10, 08/04/2023, 08/04/2023, Additional history exists O2 [...] this encounter Medical Devices Implanted Type Area Security Systems Engineer Device Identifier Shelf Expiration Date Model / Serial / Lot Sut Steel 6 M654g - [id number] [place] [facility] [place] Chest DO NOT USE 01/15/2015 M654G / / [id number] Gaston Curran 225-241 - [id number] Implanted:Qty: 1 on 02[place]15[place]2011 [place] [facility] [place]: Chest [employer] 225-241 / / [id number] Sut Steel 6 M654g - [id number] Implanted:Qty: 1 on 02/15/2011 [place] [facility] [place]: Chest DO NOT USE 07/21/2015 M654G / / [id number] documented as of this encounter Visit Diagnoses Diagnosis Type 2 diabetes mellitus with diabetic neuropathy, with long-term current use of insulin (HCC)- Primary documented in this encounter Advance Directives Documents on File Type Date Recorded Patient Alpine Guide Jose luna POL 05/06/2018 POLST * Full [...] Agents on File Name Relationship Healthcare Agent [employer] p Communication Carolyn Elio Adult Child Health Care Agent Care Teams Die Maintenance Relationship Specialty Start Date End Date Brian Domínguez MD [address] [place] [facility] [place] [address] PCP - General Family Medicine 07/16/17 documented as of this encounter
--- OUTSIDE RECORDS SUMMARY | 2024-03-03 08:11 | External Medical Summary | Summary of Care ---
Author Name Unknown Organization [facility] Address [address] [facility] [place] [address] Phone [phone] Care Team Providers Care Brim Greaser Operator Name Role Phone Brian Domínguez MD Primary Care Provider +1- [phone] Reason for Visit * Reason Onset Date Comments [facility]: Maintenance 01/09/2024 Encounter Details Date Type Department Care Team (Late st Contact Info) Description 01/09/2024 1:15 PM EDT Scheduled Telephone [facility], [facility] [address] [place] [address] Coordinator, [facility] [address] [place] [address] Allergies Active Allergy Reactions Criticality Noted Date Comments Propoxyphene Hcl Rash Low 10/29/2010 Fentanyl Diarrhea Low 04/26/2010 anxiety Methocarbamol Medium 10/05/2020 Other reaction(s): Delirium Methocarbamol Low 04/15/2007 Zolpidem Low 10/05/2020 Other reaction(s): Confusion documented as of this encounter (statuses as of 01/09/2024) Medications Medication Sig Dispensed Refills Start Date End Date Status venlafaxine XR (EFFEXOR XR) 150 MG [id number]:Dep ression Take 1 Cap by mouth daily. [...] Kit 11/18/2017 Active Blood Glucose Monitoring Suppl (ApptheGame VERIO) w/Device KIT Use as directed. Use as directed. 1 Kit 10/31/2018 Active Spacer/Aero-Holding Chambers WISAM Use with inhaler. Wheezing/bronchitis . 1 Device 04/08/2019 Active Lancet Devices (PellianoTOUCH DELICA LANCING DEV) MISC Use four times [...] minutes 25 Tablet 5 10/16/2023 Active Nystatin 561159 UNIT/GM External Powder (Nystop)Indications :Candidal intertrigo Apply topically to affected area 3 times a day. Apply to right breast until rash resolved. 30 g 10/16/2023 Active Nystatin 833845 UNIT/ML Mouth/Throat Suspension SWISH AND SWALLOW 5ML IN THE MORNING AND 5ML AT NOON AND 5 ML IN THE EVENING AND 5ML BEFORE BEDTIME, FOR THRUSH 240 mL 1 10/16/2023 Active Metoprolol Succinate ER 25 MG Oral Tablet Extended Release 24 Hour (toPROL XL)Indications:HTN, goal below 130/80 TAKE 1 TABLET BY MOUTH EVERY MORNING 90 Tablet 10/25/2023 Active Vitamin D (Ergocalciferol) 1.25 MG (75369 UT) Oral Capsule (Drisdol)Indication s:Vitamin D deficiency [...] Oral Tablet (Demadex)Indication s:Atherosclerotic heart disease of [place] coronary artery with other forms of [...] mg daily Coronary artery disease invo lving [place] coronary artery of [place] heart without angina pectoris 11/15/2021 Last Assessment & Plan: Stable. No angina -continue toprol, ASA and statin Seasonal allergies 11/15/2021 Recurrent UTI 10/07/2021 Last Assessment & Plan: Followed by urology Pt is supposed to be on methenamine--will need to clarify with dgt that she is giving this. Pt also to see uro-marquetry worker and ID Type 2 diabetes mellitus [...] 01/16/22 Moderate aortic stenosis 05/06/2018 Anxiety 08/05/2017 Kvrjoth-Gizqv-Pqara disease 06/27/2015 Last Assessment & Plan: Frequent [...] liver 05/06/2018 Atherosclerotic heart diseas e of [place] coronary artery with other forms of [...] stenosis 10/31/2010 08/28/2018 Acute coronary syndrome 10/30/201001/04 [place] Research Other*[id number] 02/02/2010 04/18/2014 Overview: [place] [facility], Dr Joel Kwon PI Obesity, morbid [...] Encounter - Al Doyle RN - 01/09/2024 10:14 AM EDT TPC to follow-up on BS. Pt reports blood sugars have been ranging widely Pt reports fingerstick glucometer read "Higher than 600" yesterday- At that time pt states she was not symptomatic, had no inclination BS was that high Denies blurred vision, excessive thirst, extreme fatigue, excessive urination at time of "higher than 600" BS reading Today: Pt BS 97 at 0745 on fingerstick glucometer Reports that she was shaky, nauseous and had headache at that time Now only has headahce States she is eating watermelon and cantaloupe at this time and feeling better This RN reinforced that watermelon/cantaloupe may lead to spike in BS initially and then a crash due to being high sugar simple carb Encouraged to drink glass of milk, eat yogurt, a whole grain bread, or another complex carb Pt reports that she does have yogurt and will eat that now, and stop eating watermelon/cantaloupe for time being Encouraged to take BS again in 15 mins and call [facility] back if BS remains under 100 or rises above 300 Pt verbalizes understanding, reiterates instructions to call to this RN Pt states she had first dose of Ozempic on Friday and is questioning if this is reason for variable BS Pt unable to tell RN what dose or how much Ozempic was taken Pt reports this is a new med for her due to being unable to get Trulicity from pharmacy. Reinforced again to call [facility] at [phone] with any red flags, changes in condition, or concerns. documented in this encounter Plan of Treatment Upcoming Encounters Date Type Department Care Team (Late st Contact Info) Description 01/16/2024 9:45 AM EDT Office Visit Urology Kimberly Harmon [address] [place] [address] Alfredo Panda MD [address] [place] [address] 01/26/2024 3:45 PM EDT Procedure Only Urology, [facility] [address] [facility] [address] Alfredo Panda MD [address] [place] [address] 02/09/2024 9:00 AM EDT Home Visit [facility], [facility] [address] [facility] [place] [address] Kirby Valenzuela PA-C [address] [facility] [place] [address] 02/25/2024 11:00 AM EDT Office Visit Cardiology, [facility] [address] [facility] [place] [address] Haydee Pop CRNP [address] [facility] [address] 03/02/2024 4:00 PM EDT Imaging Radiology, [address] [place] [address] 06/08/2024 6:00 PM EST Office Visit Family [facility] [address] [place] [phone] Brian Domínguez MD [address] [place] [address] Scheduled Procedures Name Priority Associated Diagnoses Date/Ti [...] 06/10/2021, 08/29/2020, 08/01/2020 CKD PHOS USE SMARTSET 74432 10/24/202310/05, 02/18/2022, 02/17/2022, Additional history exists Influenza [...] Additional history exists CKD HGB USE SMARTSET 18680 12/10/202412/10, 08/04/2023, 08/04/2023, Additional history exists O2 [...] this encounter Medical Devices Implanted Type Area Continuous Process Rotary Drum Tanner Device Identifier Shelf Expiration Date Model / Serial / Lot Jenna Rojas 6 M654g - [id number] Implanted:Qty: 3 on 02/15/2011 [place] [facility] [place] N[place]A: Chest DO NOT USE 01/15/2015 M654G / / [id number] Band Magdy 225-241 - [id number] Implanted:Qty: 1 on 02/15/2011 at [place] [facility] [place] N/A: Chest [employer] 225-241 / / [id number] Sut Bob 6 M654g - [id number] Implanted:Qty: 1 on 02/15/2011 at [place] [facility] [place] N/A: Chest DO NOT USE 07/21/2015 M654G / / [id number] documented as of this encounter Advance Directives Documents on File Type Date Recorded Patient Sole Conforming Machine Operator Expl anation POLST 05/06/2018 POLST [...] Adult Child Health Care Agent Care Teams Brim Greaser Operator Relationship Specialty Start Date End Date Brian Domínguez MD [address] [place] [facility] [place] [address] PCP - General Family Medicine 07/16/17 documented as of this encounter
--- OUTSIDE RECORDS SUMMARY | 2024-03-03 08:11 | External Medical Summary | Summary of Care ---
Author Name Unknown Organization [facility] Address [address] [facility] [place] [address] Phone [phone] Care Team Providers Care Can Tester Name Role Phone Brian Domínguez MD Primary Care Provider +1- [phone] Reason for Visit * Reason Onset Date Comments [facility]: Maintenance 01/09/2024 Encounter Details Date Type Department Care Team (Late st Contact Info) Description 01/09/2024 Telephone [facility], [facility] [address] [place] [address] Al Doyle, RN [address] [place] [address] [facility]: Maintenance Allergies Active Allergy Reactions Criticality Noted Date Comments Propoxyphene Hcl Rash Low 10/29/2010 Fentanyl Diarrhea Low 04/26/2010 anxiety Methocarbamol Medium 10/05/2020 Other reaction(s): Delirium Methocarbamol Low 04/15/2007 Zolpidem Low 10/05/2020 Other reaction(s): Confusion documented as of this encounter (statuses as of 01/09/2024) Medications Medication Sig Dispensed Refills Start Date End Date Status venlafaxine XR (EFFEXOR XR) 150 MG [id number]:Dep ression Take 1 Cap by mouth daily. [...] Kit 11/18/2017 Active Blood Glucose Monitoring Suppl (FitzealUCH VERIO) w/Device KIT Use as directed. Use as directed. 1 Kit 10/31/2018 Active Spacer/Aero-Holding Chambers WISAM Use with inhaler. Wheezing/bronchitis . 1 Device 04/08/2019 Active Lancet Devices (internetstoresTOUCH DELICA LANCING DEV) MISC Use four times [...] Please arrange for as needed Home senior living visit for obtaining straight cath urine sample [...] minutes 25 Tablet 5 10/16/2023 Active Nystatin 597801 UNIT/GM External Powder (Nystop)Indications :Candidal intertrigo Apply topically to affected area 3 times a day. Apply to right breast until rash resolved. 30 g 10/16/2023 Active Nystatin 505005 UNIT/ML Mouth/Throat Suspension SWISH AND SWALLOW 5ML IN THE MORNING AND 5ML AT NOON AND 5 ML IN THE EVENING AND 5ML BEFORE BEDTIME, FOR THRUSH 240 mL 1 10/16/2023 Active Metoprolol Succinate ER 25 MG Oral Tablet Extended Release 24 Hour (toPROL XL)Indications:HTN, goal below 130/80 TAKE 1 TABLET BY MOUTH EVERY MORNING 90 Tablet 10/25/2023 Active Vitamin D (Ergocalciferol) 1.25 MG (13363 UT) Oral Capsule (Drisdol)Indication s:Vitamin D deficiency [...] Oral Tablet (Demadex)Indication s:Atherosclerotic heart disease of platinum coronary artery with other forms of angina [...] mg daily Coronary artery disease invo lving platinum coronary artery of platinum heart without angina pectoris 11/15/2021 Last Assessment & Plan: Stable. No angina -continue toprol, ASA and statin Seasonal allergies 11/15/2021 Recurrent UTI 10/07/2021 Last Assessment & Plan: Followed by urology Pt is supposed to be on methenamine--will need to clarify with dgt that she is giving this. 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 (Household - for [...] to This RN will reach out to [facility] and notify of large variability in BS and pt current S/S for recommendations. Pt instructed to take BS again in 30 minutes at 11:30 and call [facility] if BS is below 100 or above 300 or if symptoms persist, pt verbalized understanding. documented in this encounter Plan of Treatment Upcoming Encounters Date Type Department Care Team (Late st Contact Info) Description 01/09/2024 1:15 PM EDT Scheduled Telephone [facility] [place], [facility] [address] [address] [address] Coordinator, [facility] [address] [place] [address] [address] 01/16/2024 9:45 AM EDT Office Visit Urology Kimberly Harmon [address] [place] [address] [place] [address] Alfredo Panda MD [address] [place] [address] 01/26/2024 3:45 PM EDT Procedure Only Urology, [facility] [address] [address] [address] Alfredo Panda MD [address] [place] [address] 02/09/2024 9:00 AM EDT [facility] Visit [facility] [place], [facility] [address] [address] [address] Kirby Valenzuela PA-C [address] [place] [address] 02/25/2024 11:00 AM EDT Office Visit Cardiology, [facility] [address] [place] [address] Haydee Pop CRNP [address] [place] [address] 03/02/2024 4:00 PM EDT Imaging Radiology, [facility] [address] [facility], [place] [address] 06/08/2024 6:00 PM EST [facility] [address] [place] [phone] Brian Domínguez MD [address] [place] [address] Scheduled Procedures Name Priority Associated Diagnoses Date/Ti [...] 06/10/2021, 08/29/2020, 08/01/2020 CKD PHOS USE SMARTSET 04093 10/24/202310/05, 02/18/2022, 02/17/2022, Additional history exists Influenza [...] Additional history exists CKD HGB USE SMARTSET 62633 12/10/202412/10, 08/04/2023, 08/04/2023, Additional history exists O2 [...] this encounter Medical Devices Implanted Type Area Run Boat Operator Device Identifier Shelf Expiration Date Model / Serial / Lot Sut Steel 6 M654g - [id number] Implanted:Qty: 3 on 02/15/2011 at OR [facility] N/A: Chest DO NOT USE 01/15/2015 M654G / / [id number] [facility] 225-295 - [id number] Implanted:Qty: 1 on 02/15/2011 at OR [facility] N/A: Chest [employer] 225-569 / / [id number] Sut Steel 6 M654g - [id number] Implanted:Qty: 1 on 02/15/2011 at OR [facility] N/A: Chest DO NOT USE 07/21/2015 M654G / / [id number] documented as of this encounter Advance Directives Documents on File Type Date Recorded Patient Therapeutic Recreation Assistant Expl anation POLST 05/06/2018 POLST * [...] Agents on File Name Relationship Healthcare Agent [facility] p Communication Carolyn Ballard Adult Child Health Care Agent Care Teams Can Tester Relationship Specialty Start Date End Date Brian Domínguez MD [address] [place] [address] PCP - General Family Medicine 07/16/17 documented as of this encounter
--- OUTSIDE RECORDS SUMMARY | 2024-03-03 08:11 | External Medical Summary | Summary of Care ---
Author Name Unknown Organization [facility] Address [address] [place] [address] Phone [phone] Care Team Providers Care Loss Prevention Analyst Name Role Phone Brian Domínguez MD Primary Care Provider +1- [phone] Reason for Referral * Evaluate & Treat - Unlimited Visits (Within 30 days (routine)) - Authorized Specialty Diagnoses / Procedures Referred By Mitchell chavez Referred To Contact Pharmacist / Pharmacy Diagnoses Type 2 diabetes mellitus with diabetic neuropathy, with long-term current use of insulin ([facility]) Lizzie Badillo MD [address] [place] [address] Referral ID Status Reason Start Date Expiration Date Visits Requested Visits Authorized [id number] Authorized Specialty Services Required 01/07/2024 07/05/2024 99 99 Question Answer Referral Priority Within 30 days (routine) Where should this appointment be scheduled? [facility] Referring Provider Role: Primary Care Reason for Referral: DM Target A1c: < 8 Comments Pharmacist Medication Therapy Management: Minimum frequency patient should be seen in person for medication management: as appropriate per clinical condition and patient status By my signature, I understand that my patient Angelina Ballard will have her medication therapy managed by the [facility] Medication Therapy Disease Management Clinic ([facility]) per established policies, procedures, and protocols. I also certify that this referral may serve as an initiation of service for the management of drug therapy in the above noted patient. [facility] providers will be responsible for scheduling patient visits, obtaining appropriate laboratory studies, and adjusting medication management therapy per patient's need, in addition to those roles spelled out in the clinic policy, procedures, and drug management protocols. I understand that the service provided by the [facility] is voluntary and have informed patient that they can refuse the service at their discretion. I am aware that the [facility] Clinic will provide me with a copy of the patient encounter via my [employer]. I authorize the [facility] Clinic to carry out these activities on my behalf. I consider this program to be a necessary part of the patient's medical care. Lizzie Badillo MD Reason for Visit * Reason Onset Date Comments [facility]: Acute 01/07/2024 Encounter Details Date Type Department Care Team (Late st Contact Info) Description 01/07/2024 Telephone [facility], [facility] [address] [facility] [place] [address] [facility], Nurse [facility] [address] [facility] [place] [address] [facility]: Acute Allergies Active Allergy Reactions Criticality Noted Date Comments Propoxyphene Hcl Rash Low 10/29/2010 Fentanyl Diarrhea Low 04/26/2010 anxiety Methocarbamol Medium 10/05/2020 Other reaction(s): Delirium Methocarbamol Low 04/15/2007 Zolpidem Low 10/05/2020 Other reaction(s): Confusion documented as of this encounter (statuses as of 01/07/2024) Medications Medication Sig Dispensed Refills Start Date End Date Status venlafaxine XR (EFFEXOR XR) 150 MG [id number]:Dep ression Take 1 Cap by mouth daily. [...] Kit 11/18/2017 Active Blood Glucose Monitoring Suppl ([employer] VERIO) w/Device KIT Use as directed. Use as directed. 1 Kit 10/31/2018 Active Spacer/Aero-Holding Chambers WISAM Use with inhaler. Wheezing/bronchitis . 1 Device 04/08/2019 Active Lancet Devices (Excaliard PharmaceuticalsTOUCH DELICA LANCING DEV) MISC Use four times [...] EVERY MORNING 90 Tablet 3 07/19/2023 Active StocardTouch Verio In Vitro Strip (Glucose Blood)Indications:T ype [...] minutes 25 Tablet 5 10/16/2023 Active Nystatin 096104 UNIT/GM External Powder (Nystop)Indications :Candidal intertrigo Apply topically to affected area 3 times a day. Apply to right breast until rash resolved. 30 g 10/16/2023 Active Nystatin 033600 UNIT/ML Mouth/Throat Suspension SWISH AND SWALLOW 5ML IN THE MORNING AND 5ML AT NOON AND 5 ML IN THE EVENING AND 5ML BEFORE BEDTIME, FOR THRUSH 240 mL 1 10/16/2023 Active Metoprolol Succinate ER 25 MG Oral Tablet Extended Release 24 Hour (toPROL XL)Indications:HTN, goal below 130/80 TAKE 1 TABLET BY MOUTH EVERY MORNING 90 Tablet 10/25/2023 Active Vitamin D (Ergocalciferol) 1.25 MG (06765 UT) Oral Capsule (Drisdol)Indication s:Vitamin D deficiency [...] I disorder, most recent episode depressed, moderate ([facility]) TAKE ONE TABLET BY MOUTH THREE TIMES [...] Oral Tablet (Demadex)Indication s:Atherosclerotic heart disease of [place] coronary artery with other forms of angina [...] mg daily Coronary artery disease invo lving [place] coronary artery of [place] heart without angina pectoris 11/15/2021 Last Assessment & Plan: Stable. No angina -continue toprol, ASA and statin Seasonal allergies 11/15/2021 Recurrent UTI 10/07/2021 Last Assessment & Plan: Followed by urology Pt is supposed to be on methenamine--will need to clarify with dgt that she is giving this. 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 (Household - for ages [...] Miscellaneous Notes * Telephone Encounter - Pinky Morales RN - 01/07/2024 2:59 PM EDT Call placed to the pt's daughter Carolyn. No answer. LMOM requesting callback. * Addendum Note - Lizzie Badillo MD [...] hyperglycemic episodes persist. Orderplaced. Lizzie Badillo MD, [facility], [facility], [facility] Remote Medical [employer] ([facility]) [facility] [employer] * Telephone Encounter - Pinky Morales RN - 01/07/2024 9:57 AM EDT [facility] rehab care assistant Acute Call Date: 01/07/2024 Time: 9:58 AM Name: Angelina Ballard : 1950 Caller: Carolyn Relationship to pt: daughter Chief Complaint [facility] with [facility]: Acute HPI: Angelina Ballard is a 73 year old female whose daughter is calling [facility] Intake to reportelevated blood sugars. [...] Description 01/09/2024 1:15 PM EDT Scheduled Telephone [facility] at [facility] [address] [address] Coordinator, [facility] [address] [address] 01/16/2024 9:45 AM EDT Office Visit Urology Kimberly Harmon [address] [place] [address] Alfredo Panda MD [place] [address] 01/26/2024 3:45 PM EDT Procedure Only Urology, [facility] [address] [place] [address] Alfredo Panda MD [address] [place] [address] 02/09/2024 9:00 AM EDT [facility] Visit [facility], [facility] [address] [facility] [address] Kirby Valenzuela PA-C [address] [facility] [place] [address] 02/25/2024 11:00 AM EDT Office Visit Cardiology, [facility] [address] [facility] [address] Haydee Pop CRNP [address] [facility] [address] 03/02/2024 4:00 PM EDT Imaging Radiology, [place] [address] [facility], [place] [address] 06/08/2024 6:00 PM EST Office Visit [facility] [address] [place] [phone] Brian Domínguez MD [address] [place] [address] Scheduled Procedures Name Priority Associated Diagnoses Date/Ti [...] 06/10/2021, 08/29/2020, 08/01/2020 CKD PHOS USE SMARTSET 44435 10/24/202310/05, 02/18/2022, 02/17/2022, Additional history exists Influenza [...] Additional history exists CKD HGB USE SMARTSET 81731 12/10/202412/10, 08/04/2023, 08/04/2023, Additional history exists O2 [...] encounter Medical Devices Implanted Type Area Continuous Mining Machine Coal Miner Device Identifier Shelf Expiration Date Model / Serial / Lot Sut Steel 6 M654g - [id number] Implanted:Qty: 3 on 02[place] [facility]A: Chest DO NOT USE 01/15/2015 M654G / / [id number] Band Magdy 225-241 - [id number] Implanted:Qty: 1 on 02/15/2011 [place] [facility] N/A: Chest [employer] 225-241 / / [id number] Sut Steel 6 M654g - [id number] Implanted:Qty: 1 on 02/15/2011 [place] [facility] N/A: Chest DO NOT USE 07/21/2015 M654G / / [id number] documented as of this encounter Visit Diagnoses Diagnosis Type 2 diabetes mellitus with diabetic neuropathy, with long-term current use of insulin (HCC)- Primary documented in this encounter Advance Directives Documents on File Type Date Recorded Patient Division Field Inspector Expl anation POLST 05/06/2018 POLST * [...] [facility] Communication Carolyn Ballard Adult Child Health Care Agent Care Teams Loss Prevention Analyst Relationship Specialty Start Date End Date Brian Domínguez MD [address] [place] [facility] [place] [id number] PCP - General Family Medicine 07/16/17 documented as of this encounter
--- OUTSIDE RECORDS SUMMARY | 2024-03-03 08:11 | External Medical Summary | Summary of Care ---
Author Name Unknown Organization [facility] Address [address] [facility] [place] [address] Phone [phone] Care Team Providers Care Horse Racing Manager Name Role Phone Brian Domínguez MD Primary Care Provider +1- [phone] Reason for Visit * Reason Onset Date Comments [facility]: Maintenance 01/09/2024 Encounter Details Date Type Department Care Team (Late st Contact Info) Description 01/09/2024 Telephone [facility], [facility] [address] [place] [address] Al Doyle, RN [address] [place] [address] [facility]: Maintenance Allergies Active Allergy Reactions Criticality Noted Date Comments Propoxyphene Hcl Rash Low 10/29/2010 Fentanyl Diarrhea Low 04/26/2010 anxiety Methocarbamol Medium 10/05/2020 Other reaction(s): Delirium Methocarbamol Low 04/15/2007 Zolpidem Low 10/05/2020 Other reaction(s): Confusion documented as of this encounter (statuses as of 01/09/2024) Medications Medication Sig Dispensed Refills Start Date End Date Status venlafaxine XR (EFFEXOR XR) 150 MG BC46Eexnzuvcple:Dep ression Take 1 Cap by mouth daily. [...] Kit 11/18/2017 Active Blood Glucose Monitoring Suppl (Energie EticheUCH VERIO) w/Device KIT Use as directed. Use as directed. 1 Kit 10/31/2018 Active Spacer/Aero-Holding Chambers WISMA Use with inhaler. Wheezing/bronchitis . 1 Device 04/08/2019 Active Lancet Devices (PrimesportTOUCH DELICA LANCING DEV) MISC Use four times [...] minutes 25 Tablet 5 10/16/2023 Active Nystatin 909386 UNIT/GM External Powder (Nystop)Indications :Candidal intertrigo Apply topically to affected area 3 times a day. Apply to right breast until rash resolved. 30 g 10/16/2023 Active Nystatin 455214 UNIT/ML Mouth/Throat Suspension SWISH AND SWALLOW 5ML IN THE MORNING AND 5ML AT NOON AND 5 ML IN THE EVENING AND 5ML BEFORE BEDTIME, FOR THRUSH 240 mL 1 10/16/2023 Active Metoprolol Succinate ER 25 MG Oral Tablet Extended Release 24 Hour (toPROL XL)Indications:HTN, goal below 130/80 TAKE 1 TABLET BY MOUTH EVERY MORNING 90 Tablet 10/25/2023 Active Vitamin D (Ergocalciferol) 1.25 MG (51573 UT) Oral Capsule (Drisdol)Indication s:Vitamin D deficiency [...] Tablet (Demadex)Indication s:Atherosclerotic heart disease of [place] coronary artery with other forms of [...] mg daily Coronary artery disease invo lving [place] coronary artery of [place] heart without angina pectoris 11/15/2021 Last Assessment & Plan: Stable. No angina -continue toprol, ASA and statin Seasonal allergies 11/15/2021 Recurrent UTI 10/07/2021 Last Assessment & Plan: Followed by urology Pt is supposed to be on methenamine--will need to clarify with dgt that she is giving this. 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 coronary artery with other forms of [...] stenosis 10/31/2010 08/28/2018 Acute coronary syndrome 10/30/201001/04 [place] Research Other*[id number] 02/02/2010 04/18/2014 Overview: [place] Registry, Dr Joel Kwon PI Obesity, morbid [...] Duplicate Protocol #2. 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 (Household - for [...] encounter Miscellaneous Notes * Telephone Encounter - Jessica Lehman LPN [...] to This RN will reach out to [facility] and notify of large variability in BS and pt current S/S for recommendations. Pt instructed to take BS again in 30 minutes at 11:30 and call [facility] if BS is below 100 or above 300 or if symptoms persist, pt verbalized understanding. documented in this encounter Plan of Treatment Upcoming Encounters Date Type Department Care Team (Late st Contact Info) Description 01/09/2024 1:15 PM EDT Scheduled Telephone [facility] [address] [address] Coordinator, [facility] [address] [address] 01/16/2024 9:45 AM EDT Office Visit Urology Kimberly Harmon [address] [place] [address] Alfredo Panda MD [place] [address] 01/26/2024 3:45 PM EDT Procedure Only Urology, [facility] [address] [place] [address] Alfredo Panda MD [address] [address] [address] 02/09/2024 9:00 AM EDT [facility], [facility] 132 [facility] [place] [address] Kirby Valenzuela PA-C 132 [facility] [place] [address] 02/25/2024 11:00 AM EDT Office Visit Cardiology, [facility] [address] [facility] [place] [address] Haydee Pop CRNP [address] [facility] [address] 03/02/2024 4:00 PM EDT Imaging Radiology, [address] [place] [address] 06/08/2024 6:00 PM EST Office Visit [facility] [address] [place] [phone] Brian Domínguez MD [address] [place] [address] Scheduled Procedures Name Priority Associated Diagnoses Date/Ti [...] 06/10/2021, 08/29/2020, 08/01/2020 CKD PHOS USE SMARTSET 70062 10/24/202310/05, 02/18/2022, 02/17/2022, Additional history exists Influenza [...] Additional history exists CKD HGB USE SMARTSET 62261 12/10/202412/10, 08/04/2023, 08/04/2023, Additional history exists O2 [...] this encounter Medical Devices Implanted Type Area Elementary Summer School Teacher Device Identifier Shelf Expiration Date Model / Serial / Lot Jenna Rojas 6 M654g - [id number] Implanted:Qty: 3 on 02/15/2011 [place] [facility] [place] N/A: Chest DO NOT USE 01/15/2015 M654G / / [id number] Band Magdy 225-241 - [id number] Implanted:Qty: 1 on 02/15/2011 at [place] [facility] [place] N/A: Chest [employer] 225-241 / / [id number] Jenna Rojas 6 M654g - [id number] Implanted:Qty: 1 on 02/15/2011 at [place] [facility] [place] N/A: Chest DO NOT USE 07/21/2015 M654G / / [id number] documented as of this encounter Advance Directives Documents on File Type Date Recorded Patient Director Payer Expl anation POLST 05/06/2018 POLST * Full [...] patient have Health Care Power of Attor brtit? No * Full Code Date Activated Date [...] Adult Child Health Care Agent Care Teams Horse Racing Manager Relationship Specialty Start Date End Date Brian Domínguez MD [address] [place] [address] PCP - General Family Medicine 07/16/17 documented as of this encounter
--- OUTSIDE RECORDS SUMMARY | 2024-03-03 08:12 | External Medical Summary | Summary of Care ---
Author Name Unknown Organization [facility] Address [address] [facility] [place] [address] Phone [phone] Care Team Providers Care Patient Access Registrar Name Role Phone Brian Domínguez MD Primary Care Provider +1- [phone] Reason for Visit * Reason Onset Date Comments [facility]: Acute 01/07/2024 Encounter Details Date Type Department Care Team (Late st Contact Info) Description 01/07/2024 Telephone [facility], [facility] [address] [facility] [place] [address] [facility], Nurse [facility] [address] [facility] [place] [address] [facility]: Acute Allergies Active Allergy Reactions Criticality Noted Date Comments Propoxyphene Hcl Rash Low 10/29/2010 Fentanyl Diarrhea Low 04/26/2010 anxiety Methocarbamol Medium 10/05/2020 Other reaction(s): Delirium Methocarbamol Low 04/15/2007 Zolpidem Low 10/05/2020 Other reaction(s): Confusion documented as of this encounter (statuses as of 01/07/2024) Medications Medication Sig Dispensed Refills Start Date End Date Status venlafaxine XR (EFFEXOR XR) 150 MG [id number]:Dep ression Take 1 Cap by mouth daily. [...] Kit 11/18/2017 Active Blood Glucose Monitoring Suppl (Oneexchangestreet VERIO) w/Device KIT Use as directed. Use as directed. 1 Kit 10/31/2018 Active Spacer/Aero-Holding Chambers WISAM Use with inhaler. Wheezing/bronchitis . 1 Device 04/08/2019 Active Lancet Devices (InnozTOUCH DELICA LANCING DEV) MISC Use four times [...] minutes 25 Tablet 5 10/16/2023 Active Nystatin 227403 UNIT/GM External Powder (Nystop)Indications :Candidal intertrigo Apply topically to affected area 3 times a day. Apply to right breast until rash resolved. 30 g 10/16/2023 Active Nystatin 111341 UNIT/ML Mouth/Throat Suspension SWISH AND SWALLOW 5ML IN THE MORNING AND 5ML AT NOON AND 5 ML IN THE EVENING AND 5ML BEFORE BEDTIME, FOR THRUSH 240 mL 1 10/16/2023 Active Metoprolol Succinate ER 25 MG Oral Tablet Extended Release 24 Hour (toPROL XL)Indications:HTN, goal below 130/80 TAKE 1 TABLET BY MOUTH EVERY MORNING 90 Tablet 10/25/2023 Active Vitamin D (Ergocalciferol) 1.25 MG (18538 UT) Oral Capsule (Drisdol)Indication s:Vitamin D deficiency [...] Oral Tablet (Demadex)Indication s:Atherosclerotic heart disease of [place] coronary artery with other forms of angina [...] mg daily Coronary artery disease invo lving [place] coronary artery of [place] heart without angina pectoris 11/15/2021 Last Assessment & Plan: Stable. No angina -continue toprol, ASA and statin Seasonal allergies 11/15/2021 Recurrent UTI 10/07/2021 Last Assessment & Plan: Followed by urology Pt is supposed to be on methenamine--will need to clarify with dgt that she is giving this. 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 [...] [address] [place] [address] Alfredo Panda MD [address] [place] [address] 01/26/2024 3:45 PM EDT Procedure Only Urology, [facility] [address] [place] [address] [address] Alfredo Panda MD [address] [place] [address] 02/09/2024 9:00 AM EDT [facility] [address] [place] [address] [address] Kirby Valenzuela PA-C [address] [place] [address] 02/25/2024 11:00 AM EDT Office Visit Cardiology, [facility] [address] [place] [address] [address] Haydee Pop CRNP [address] [place] [address] 03/02/2024 4:00 PM EDT Imaging [place]iology, [address] [place] [address] 06/08/2024 6:00 PM EST [address] [id number] Brian Domínguez MD [address] [place] [address] Scheduled Procedures Name Priority Associated Diagnoses Date/Ti [...] 06/10/2021, 08/29/2020, 08/01/2020 CKD PHOS USE SMARTSET 35740 10/24/202310/05, 02/18/2022, 02/17/2022, Additional history exists Influenza [...] Additional history exists CKD HGB USE SMARTSET 68164 12/10/202412/10, 08/04/2023, 08/04/2023, Additional history exists O2 [...] this encounter Medical Devices Implanted Type Area Extraction Operator Device Identifier Shelf Expiration Date Model / Serial / Lot Sut Steel 6 M654g - [id number] Implanted:Qty: 3 on 02/15/2011 at OR [facility] N/A: Chest DO NOT USE 01/15/2015 M654G / / [id number] [facility] 225-241 - [id number] Implanted:Qty: 1 on 02/15/2011 at OR [facility] N/A: Chest [employer] 225-241 / / [id number] Sut Steel 6 M654g - [id number] Implanted:Qty: 1 on 02/15/2011 at OR [facility] N/A: Chest DO NOT USE 07/21/2015 M654G / / [id number] documented as of this encounter Visit Diagnoses Diagnosis Type 2 diabetes mellitus with diabetic neuropathy, with long-term current use of insulin (HCC)- Primary documented in this encounter Advance Directives Documents on File Type Date Recorded Patient Financial Systems Analyst Expl anation POLST 05/06/2018 POLST * Full [...] Agent [facility] Communication Carolyn Goldmandrewnabila Adult Child Health Care Agent Care Teams Patient Access Registrar Relationship Specialty Start Date End Date Brian Domínguez MD [address] [place] [address] PCP - General Family Medicine 07/16/17 documented as of this encounter
--- OUTSIDE RECORDS SUMMARY | 2024-03-03 08:12 | External Medical Summary | Summary of Care ---
Author Name Unknown Organization [facility] Address [address] [facility] [place] [address] Phone [phone] Care Team Providers Care It Help Desk Associate Name Role Phone Brian Domínguez MD Primary Care Provider +1- [phone] Reason for Visit * Reason Onset Date Comments [facility]: Maintenance 01/05/2024 Encounter Details Date Type Department Care Team (Late st Contact Info) Description 01/05/2024 Telephone [facility], [facility] [address] [place] [address] Connie Mccullough, RN [address] [place] [address] [facility]: Maintenance Allergies Active Allergy Reactions Criticality Noted Date Comments Propoxyphene Hcl Rash Low 10/29/2010 Fentanyl Diarrhea Low 04/26/2010 anxiety Methocarbamol Medium 10/05/2020 Other reaction(s): Delirium Methocarbamol Low 04/15/2007 Zolpidem Low 10/05/2020 Other reaction(s): Confusion documented as of this encounter (statuses as of 01/06/2024) Medications Medication Sig Dispensed Refills Start Date End Date Status venlafaxine XR (EFFEXOR XR) 150 MG [id number]:Dep ression Take 1 Cap by mouth daily. [...] Kit 11/18/2017 Active Blood Glucose Monitoring Suppl (KeyOwnerUCH VERIO) w/Device KIT Use as directed. Use as directed. 1 Kit 10/31/2018 Active Spacer/Aero-Holding Chambers WISAM Use with inhaler. Wheezing/bronchitis . 1 Device 04/08/2019 Active Lancet Devices (ShnergleTOUCH DELICA LANCING DEV) MISC Use four times [...] INSTRUCTIONS Please arrange for as needed Home fpc visit for obtaining straight cath urine sample [...] minutes 25 Tablet 5 10/16/2023 Active Nystatin 800060 UNIT/GM External Powder (Nystop)Indications :Candidal intertrigo Apply topically to affected area 3 times a day. Apply to right breast until rash resolved. 30 g 10/16/2023 Active Nystatin 260347 UNIT/ML Mouth/Throat Suspension SWISH AND SWALLOW 5ML IN THE MORNING AND 5ML AT NOON AND 5 ML IN THE EVENING AND 5ML BEFORE BEDTIME, FOR THRUSH 240 mL 1 10/16/2023 Active Metoprolol Succinate ER 25 MG Oral Tablet Extended Release 24 Hour (toPROL XL)Indications:HTN, goal below 130/80 TAKE 1 TABLET BY MOUTH EVERY MORNING 90 Tablet 10/25/2023 Active Vitamin D (Ergocalciferol) 1.25 MG (30008 UT) Oral Capsule (Drisdol)Indication s:Vitamin D deficiency [...] per week 3 mL 5 01/01/2024 Active documented as of this encounter (statuses as of 01/06/2024) Active Problems Problem Noted Date Diagnosed Date [...] is giving this. Pt also to see uro-still cleaner tube and ID Type 2 diabetes mellitus wit [...] 01/16/22 Moderate aortic stenosis 05/06/2018 Anxiety 08/05/2017 Qsqpqqf-Rytnu-Plqpv disease 06/27/2015 Last Assessment & Plan: Frequent [...] as of this encounter (statuses as of 01/06/2024) Resolved Problems Problem Noted Date Diagnosed Date [...] stenosis 10/31/2010 08/28/2018 Acute coronary syndrome 10/30/201001/04 [place] Research Other*[id number] 02/02/2010 04/18/2014 Overview: [place] Registry, Dr Joel CASAS Obesity, morbid (more [...] 06/17/2006 01/21/2014 senior care current use of ant icoagulant therapy [...] as of this encounter (statuses as of 01/06/2024) Immunizations Name Administration Dates Next Due COVID-19 [...] No 11/24/2023 Does the household have a [facility] source of income? (Household - [...] encounter Miscellaneous Notes * Telephone Encounter - Feli Vera PA-C - 01/06/2024 4:19 PM EDT Patient's symptoms seem consistent in the postoperative state especially since her surgery was lessthan a week ago. Per chart review, patient was given cefdinir preoperatively and was supposed to continue until 01/03/2024. Patient/family can apply a gauze dressing for the serosanguinous drainage p. r.n.. The drainage should resolve in the next few days, so I would recommend obtaining gauze from [facility]. Other chronic catheter care questions will be discussed at postop visit. Thanks! * Telephone Encounter - Connie Mccullough RN - 01/05/2024 1:51 PM EDT Good afternoon, Pt seen for home visit today. She reports pain 8/10 of bladder area, worse with palpations. Pt states her pain is a burning as if she has a UTI States she has not been feeling well since the procedure. Nausea today but has improved with Zofran. Area around cath is mildly red with mod amt of serosanguinous drainage, scant amt yellow noted. Advised dtr to monitor redness, does not appear to be infected. Pt is taking oxycodone with some relief of pain. Pt is asking if she is to be on Cefdinir? States you discussed it at procedure but she was not provided a script. Do you want her to be on an abx post procedure? She will also need supplies for dressing changes ordered through [employer]. . Please advise. Also, there are some questions regarding care at home, who will be changing the cath, irrigating ifbecomes obstructed, etc? Is home health needed as [facility] does not manage catheters? Dtr has these questions written down for their next appt, [facility]. Thank you! documented in this encounter Plan of Treatment Upcoming Encounters Date Type Department Care Team (Late st Contact Info) Description 01/16/2024 9:45 AM EDT Office Visit Urology Kimberly Harmon [address] [place] [address] Alfredo Panda MD [address] [place] [address] 01/26/2024 3:45 PM EDT Procedure Only Urology, [facility] 132 [place] [place] [address] Alfredo Panda MD [address] [place] [address] 02/09/2024 9:00 AM EDT Home Visit [facility], [facility] 132 [facility] [place] [address] Kirby Valenzuela PA-C 132 [facility] [place] [address] 02/25/2024 11:00 AM EDT Office Visit Cardiology, [facility] 132 [facility] [place] [address] Haydee Pop CRNP 132 [facility] [place] [address] 03/02/2024 4:00 PM EDT Imaging Radiology, [address] [place] [address] 06/08/2024 6:00 PM EST Office Visit [facility] [address] [place] [phone] Brian Domínguez MD [address] [place] [address] Scheduled Procedures Name Priority Associated Diagnoses Date/Ti [...] 06/10/2021, 08/29/2020, 08/01/2020 CKD PHOS USE SMARTSET 95669 10/24/202310/05, 02/18/2022, 02/17/2022, Additional history exists Influenza [...] Additional history exists CKD HGB USE SMARTSET 86359 12/10/202412/10, 08/04/2023, 08/04/2023, Additional history exists O2 [...] this encounter Medical Devices Implanted Type Area Complaints Coordinator Device Identifier Shelf Expiration Date Model / Serial / Lot Jenna Rojas 6 M654g - [id number] Implanted:Qty: 3 on 02/15/2011 at OR [facility] N/A: Chest DO NOT USE 01/15/2015 M654G / / [id number] [employer] 225-241 - [id number] Implanted:Qty: 1 on 02/15/2011 at OR [facility] N/A: Chest [employer] 225-241 / / [id number] Jenna Rojas 6 M654g - [id number] Implanted:Qty: 1 on 02/15/2011 at OR [facility] N/A: Chest DO NOT USE 07/21/2015 M654G / / [id number] documented as of this encounter Advance Directives [...] Name Relationship Healthcare Agent [facility] p Communication Carolyn Ballard Adult Child Health Care Agent Care Teams It Help Desk Associate Relationship Specialty Start Date End Date Brian Domínguez MD [address] [place] [address] PCP - General Family Medicine 07/16/17 documented as of this encounter
--- OUTSIDE RECORDS SUMMARY | 2024-03-03 08:12 | External Medical Summary | Summary of Care ---
Author Name Unknown Organization [facility] Address [address] [place] [address] Phone [phone] Care Team Providers Care Tai Chi Instructor Name Role Phone Carmen Sifuentes MD Primary Care Provider +1- [phone] Reason for Visit * Reason Comments eRx-Medication Refill Encounter Details Date Type Department Care Team (Late st Contact Info) Description 01/06/2024 Refill [facility], [facility] [address] [place] [address] Carmen Sifuentes MD [address] [place] [address] Atherosclerotic heart disease of [place] coronary artery with other forms of angina pectoris (HCC); Hypertensive heart disease with chronic diastolic congestive heart failure (HCC) Allergies Active Allergy Reactions Criticality Noted Date Comments Propoxyphene Hcl Rash Low 10/29/2010 Fentanyl Diarrhea Low 04/26/2010 anxiety Methocarbamol Medium 10/05/2020 Other reaction(s): Delirium Methocarbamol Low 04/15/2007 Zolpidem Low 10/05/2020 Other reaction(s): Confusion documented as of this encounter (statuses as of 01/06/2024) Medications Medication Sig Dispensed Refills Start Date End Date Status venlafaxine XR (EFFEXOR XR) 150 MG [id number]:De pression Take 1 Cap by mouth daily. With food. 30 Cap 5 09/02/19 17 Active Additional Information Patient taking differently: 225 mgOral Daily(AM),Taking a total of 225 mg, Indications: Takes 225 mg total every morning with food (150 mg tab + 75 mg tab), Reported on 03/03/2023 Blood Glucose Monitoring Suppl (D-eVenues GLUCOMETER) w/Device KITIndications:Unc ontrolled type 2 diabetes mellitus without complication, without long-term current use of insulin Use as directed. Use as directed once daily 1 Kit 11/19/19 18 Active Blood Glucose Monitoring Suppl (Everstring VERIO) w/Device KIT Use as directed. Use as directed. 1 Kit 11/01/19 19 Active Spacer/Aero-Holdin g Chambers WISAM Use with inhaler. Wheezing/bronchiti s. 1 Device 04/08/20 19 Active Lancet Devices (Everstring DELICA LANCING DEV) MISC Use four times [...] gm) vaginally every other night 42.5 g 08/20/19 24 Active Levothyroxine Sodium 88 MCG [...] 3 tablets in 15 minutes 25 Tablet 10/16/19 24 Active Nystatin 185852 UNIT/GM External Powder (Nystop)Indication s:Candidal intertrigo Apply topically to affected area 3 times a day. Apply to right breast until rash resolved. 30 g 10/16/19 24 Active Nystatin 707340 UNIT/ML Mouth/Throat Suspension SWISH AND SWALLOW 5ML [...] 24 Active Vitamin D (Ergocalciferol) 1.25 MG (23744 UT) Oral Capsule (Drisdol)Indicatio ns:Vitamin D deficiency [...] Oral Tablet (Demadex)Indicatio ns:Atherosclerotic heart disease of [place] coronary artery with other forms of angina pectoris (HCC),Hypertensive heart disease with chronic diastolic congestive heart failure (HCC) TAKE 1 TABLET BY MOUTH EVERY MORNING. MAY TAKE 1 ADDITIONAL TABLET NEEDED FOR SWELLING. 90 Tablet 1 01/06/20 24 Active Torsemide 20 MG Oral Tablet (Demadex)Indicatio ns:Atherosclerotic heart disease of [place] coronary artery with other forms of angina pectoris (HCC),Hypertensive heart disease with chronic diastolic congestive heart failure (HCC) TAKE 1 TABLET BY MOUTH EVERY MORNING. MAY TAKE 1 ADDITIONAL TABLET NEEDED FOR SWELLING. 90 Tablet 3 07/08/19 24 024 Discontinued documented as of this [...] mg daily Coronary artery disease invo lving [place] coronary artery of [place] heart without angina pectoris 11/15/2021 Last Assessment & Plan: Stable. No angina -continue toprol, ASA and statin Seasonal allergies 11/15/2021 Recurrent UTI 10/07/2021 Last Assessment & Plan: Followed by urology Pt is supposed to be on methenamine--will need to clarify with dgt that she is giving this. 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 Portillo 04/10. ELECTROLYT-FLUID DIS NEC 05/25/2004 07/ PREMENSTRUAL TENSION 05/04/2004 006 Type 2 diabetes [...] Telephone Encounter - Carmen Sifuentes MD - 01/06/2024 1:18 PM EDTSigned Prescriptions: Disp Refills Torsemide 20 MG Oral Tablet (Demadex) 90 Tab*1 Sig: TAKE 1 TABLET BY MOUTH EVERY MORNING. MAY TAKE 1 ADDITIONAL TABLET NEEDED FOR SWELLING.Authorizing Provider: CARMEN SIFUENTES * Telephone Encounter - Lizzette Yun LPN - 01/06/2024 8:43 AM EDTPending Prescriptions: Disp Refills Torsemide 20 MG Oral Tablet [Pharmacy Med *90 Tab*0 Sig: TAKE 1 TABLET BY MOUTH EVERY MORNING. MAY TAKE 1 ADDITIONAL TABLET NEEDED FOR SWELLING. * Telephone Encounter - Brittney Epperson LPN - 01/06/2024 7:44 AM EDT Did you pend patient's preferred pharmacy and medication before forwarding?yes [id number] [address] [facility] [place] Pending Prescriptions: Disp Refills Torsemide 20 MG Oral Tablet (Demadex) [Ph*90 Tab*0 Sig: TAKE 1 TABLET BY MOUTH EVERY MORNING. MAY TAKE 1 ADDITIONAL TABLET NEEDED FOR SWELLING. Last Visit: Visit date not found (in office), 03/12/2022 (telemedicine) Next Visit: 02/09/2024 If no future appointments scheduled, and last appointment is greater than a year ago, please schedule patient for a follow-up appointment Last date the medication was ordered: 11/25/23 Is this request for a controlled substance?No [...] 05/22/2020 01:24 PM * Telephone Encounter - Antoinette Bermudez RP - 01/06/2024 7:17 AM EDT Pending Prescriptions: Disp Refills Torsemide 20 MG Oral Tablet [Pharmacy Med *90 Tab*0 Sig: TAKE 1 TABLET BY MOUTH EVERY MORNING. MAY TAKE 1 ADDITIONAL TABLET NEEDED FOR SWELLING. documented in this encounter Plan of Treatment Upcoming Encounters Date Type Department Care Team (Late st Contact Info) Description 01/16/2024 9:45 AM EDT Office Visit Urology Kimberly Harmon [address] [facility] [address] [place] [address] Alfredo Panda MD [address] [place] [address] 01/26/2024 3:45 PM EDT Procedure Only Urology, [facility] [address] [address] [address] Alfredo Panda MD [address] [place] [address] [address] 02/09/2024 9:00 AM EDT Home Visit [facility] [address] [address] Kirby Valenzuela PA-C [address] [place] [address] 02/25/2024 11:00 AM EDT Office Visit Cardiology, [facility] [address] [address] [address] Haydee Pop CRNP [address] [place] [address] 03/02/2024 4:00 PM EDT Imaging Radiology, [address] [place] [address] 06/08/2024 6:00 PM EST Office Visit Family [facility] [place] [address] [place] [facility] [place] [address] Carmen Sifuentes MD [address] [place] [facility] [place] [address] Scheduled Procedures Name Priority Associated Diagnoses Date/Ti [...] 06/10/2021, 08/29/2020, 08/01/2020 CKD PHOS USE SMARTSET 88406 10/24/202310/05, 02/18/2022, 02/17/2022, Additional history exists Influenza [...] Additional history exists CKD HGB USE SMARTSET 78366 12/10/202412/10, 08/04/2023, 08/04/2023, Additional history exists O2 [...] encounter Medical Devices Implanted Type Area Derrick Boat Lever Operator Device Identifier Shelf Expiration Date Model / Serial / Lot Sut Steel 6 M654g - [id number] Implanted:Qty: 3 on 02/15/2011 at OR [facility] N/A: Chest DO NOT USE 01/15/2015 M654G / / [id number] [facility] 225-241 - [id number] Implanted:Qty: 1 on 02/15/2011 at OR [facility] N/A: Chest [employer] 225-241 / / [id number] Sut Steel 6 M654g - [id number] Implanted:Qty: 1 on 02/15/2011 at OR [facility] N/A: Chest DO NOT USE 07/21/2015 M654G / / [id number] documented as of this encounter Visit Diagnoses Diagnosis Atherosclerotic heart disease of [place] coronary artery with other forms of angina pectoris (HCC) Hypertensive heart disease with chronic diastolic congestive heart failure (HCC) documented in this encounter Advance Directives Documents on File Type Date Recorded Patient Media Senior Recruiter Expl anation POLST 05/06/2018 POLST * Full [...] Adult Child Health Care Agent Care Teams Tai Chi Instructor Relationship Specialty Start Date End Date Carmen Sifuentes MD [address] [place] [address] PCP - General Family Medicine 07/16/17 documented as of this encounter
--- OUTSIDE RECORDS SUMMARY | 2024-03-03 08:12 | External Medical Summary | Summary of Care ---
Author Name Unknown Organization [facility] Address [address] [place] [address] Phone [phone] Care Team Providers Care Panel Monitor Name Role Phone Brian Domínguez MD Primary Care Provider [phone]- [phone] Reason for Visit * Reason Onset Date Comments Medication Problem 01/05/2024 Encounter Details Date Type Department Care Team (Late st Contact Info) Description 01/05/2024 Telephone Urology Kimberly Harmon [address] [place] [address] Alfredo Panda MD [address] [place] [id number] Medication Problem Allergies Active Allergy Reactions Criticality Noted Date Comments Propoxyphene Hcl Rash Low 10/29/2010 Fentanyl Diarrhea Low 04/26/2010 anxiety Methocarbamol Medium 10/05/2020 Other reaction(s): Delirium Methocarbamol Low 04/15/2007 Zolpidem Low 10/05/2020 Other reaction(s): Confusion documented as of this encounter (statuses as of 01/06/2024) Medications Medication Sig Dispensed Refills Start Date End Date Status venlafaxine XR (EFFEXOR XR) 150 MG [id number]:Dep ression Take 1 Cap by mouth daily. [...] Kit 11/18/2017 Active Blood Glucose Monitoring Suppl (Rocket DesignTOUCH VERIO) w/Device KIT Use as directed. Use as directed. 1 Kit 10/31/2018 Active Spacer/Aero-Holding Chambers WISAM Use with inhaler. Wheezing/bronchitis . 1 Device 04/08/2019 Active Lancet Devices (Rocket DesignTOUCH DELICA LANCING DEV) MISC Use four times [...] for 06/25/23. 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 MAY TAKE 1 ADDITIONAL TABLET NEEDED FOR SWELLING. 90 Tablet 3 07/08/2023 Active Xifaxan 550 MG Oral Tablet (rifAXIMin)Indicati [...] FOUR TIMES A DAY Dx:E11.4 360 Each 07/30/2023 Active Vitamin C 500 MG Oral [...] BEFORE BREAKFAST AND OTHER MEDICATIONS 90 Tablet 09/08/2023 Active PEG 3350 17 GM/SCOOP Oral [...] minutes 25 Tablet 5 10/16/2023 Active Nystatin 246852 UNIT/GM External Powder (Nystop)Indications :Candidal intertrigo Apply topically to affected area 3 times a day. Apply to right breast until rash resolved. 30 g 10/16/2023 Active Nystatin 652618 UNIT/ML Mouth/Throat Suspension SWISH AND SWALLOW 5ML IN THE MORNING AND 5ML AT NOON AND 5 ML IN THE EVENING AND 5ML BEFORE BEDTIME, FOR THRUSH 240 mL 1 10/16/2023 Active Metoprolol Succinate ER 25 MG Oral Tablet Extended Release 24 Hour (toPROL XL)Indications:HTN, goal below 130/80 TAKE 1 TABLET BY MOUTH EVERY MORNING 90 Tablet 10/25/2023 Active Vitamin D (Ergocalciferol) 1.25 MG (10908 UT) Oral Capsule (Drisdol)Indication s:Vitamin D deficiency [...] mg daily Coronary artery disease invo lving levelock coronary artery of levelock heart without angina pectoris 11/15/2021 Last Assessment & Plan: Stable. No angina -continue toprol, ASA and statin Seasonal allergies 11/15/2021 Recurrent UTI 10/07/2021 Last Assessment & Plan: Followed by urology Pt is supposed to be on methenamine--will need to clarify with dgt that she is giving this. 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 Type 2 diabetes [...] 01/16/22 Moderate aortic stenosis 05/06/2018 Anxiety 08/05/2017 Fovaoed-Klyky-Iilvx disease 06/27/2015 Last Assessment & Plan: Frequent [...] liver 05/06/2018 Atherosclerotic heart diseas e of levelock coronary artery with other forms of angina [...] stenosis 10/31/2010 08/28/2018 Acute coronary syndrome 10/30/201001/04 ROY Research Other*[id number] 02/02/2010 04/18/2014 Overview: [place] [facility], Dr Joel CASAS Obesity, morbid (more [...] thrombosis 06/17/2006 01/21/2014 [facility] current use of ant icoagulant therapy 06/17/2006 [...] 11/24/2023 Does the household have a re lar [...] Telephone Encounter - Hue Coates LPN - 01/06/2024 12:57 PM EDT Left detailed message on pharmacy voicemail with verbal prescription. Spoke with pt, aware medication has been called in. * Telephone Encounter - Lanie Jones OSA - 01/06/2024 10:15 AM EDT Pt pharm never received the script please send again and call pt for varication Thank you * Telephone Encounter - Dottie Whittaker OSA - 01/05/2024 4:55 PM EDT Pt's pharmacy never received script for Cefdinir 300mg. documented in this encounter Plan of Treatment Upcoming Encounters Date Type Department Care Team (Late st Contact Info) Description 01/16/2024 9:45 AM EDT Office Visit Urology Kimberly Harmon [address] [facility] [address] [place] [address] Alfredo Panda MD [address] [place] [address] 01/26/2024 3:45 PM EDT Procedure Only Urology, [facility] [address] [place] [address] [address] Alfredo Panda MD [address] [place] [address] [address] 02/09/2024 9:00 AM EDT Home Visit danger at [place], [facility] [address] [address] [address] Kirby Valenzuela PA-C [address] [place] [address] 02/25/2024 11:00 AM EDT Office Visit Cardiology, [facility] [address] [place] [address] Haydee Pop CRNP [address] [place] [address] 03/02/2024 4:00 PM EDT Imaging Radiology, [facility] [address] [facility] [address] 06/08/2024 6:00 PM EST Office Visit [facility] [address] [place] [address] Brian Domínguez MD [address] [place], [place] [phone] Scheduled Procedures Name Priority Associated Diagnoses Date/Ti [...] 06/10/2021, 08/29/2020, 08/01/2020 CKD PHOS USE SMARTSET 73847 10/24/202310/05, 02/18/2022, 02/17/2022, Additional history exists Influenza [...] Additional history exists CKD HGB USE SMARTSET 51001 12/10/202412/10, 08/04/2023, 08/04/2023, Additional history exists O2 [...] this encounter Medical Devices Implanted Type Area Solid Waste Engineer Device Identifier Shelf Expiration Date Model / Serial / Lot Sut Steel 6 M654g - [id number] Implanted:Qty: 3 on 02/15/2011 [place] [facility]/A: Chest DO NOT USE 01/15/2015 M654G / / [id number] Gaston Curran 225-241 - [id number] Implanted:Qty: 1 on 02/15/2011 at [place] [facility] N/A: Chest [employer] 225-241 / / [id number] Sut Steel 6 M654g - [id number] Implanted:Qty: 1 on 02/15/2011 at [place] [facility] N/A: Chest DO NOT USE 07/21/2015 M654G / / [id number] documented as of this encounter Advance Directives Documents on File Type Date Recorded 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
--- OUTSIDE RECORDS SUMMARY | 2024-03-03 08:12 | External Medical Summary | Summary of Care ---
Author Name Unknown Organization [facility] Address [address] [place] [address] Phone [phone] Care Team Providers Care Judo Teacher Name Role Phone Brian Domínguez MD Primary Care Provider [phone]- [phone] Reason for Visit * Reason Onset Date Comments Test Results 10/08/2023 Urinalysis from 10/03/23 Encounter Details Date Type Department Care Team (Late st Contact Info) Description 10/06/2023 Telephone Infectious Disease, [place] [address] [place] [address] Buzz Wall MD [address] [place] [address] Test Results (Urinalysis from 10/03/23) Allergies Active Allergy Reactions Criticality Noted Date Comments Propoxyphene Hcl Rash Low 10/29/2010 Fentanyl Diarrhea Low 04/26/2010 anxiety Methocarbamol Medium 10/05/2020 Other reaction(s): Delirium Methocarbamol Low 04/15/2007 Zolpidem Low 10/05/2020 Other reaction(s): Confusion documented as of this encounter (statuses as of 01/05/2024) Medications Medication Sig Dispensed Refills Start Date End Date Status venlafaxine XR (EFFEXOR XR) 150 MG OB38Utvuhnhwmae:De pression Take 1 Cap by mouth daily. [...] Kit 8 Active Blood Glucose Monitoring Suppl (Baiyaxuan VERIO) w/Device KIT Use as directed. Use as directed. 1 Kit 9 Active Spacer/Aero-Holdin g Chambers WISAM Use with inhaler. Wheezing/bronch itis. 1 Device 9 Active Lancet Devices (Baiyaxuan DELICA LANCING DEV) MISC Use four times [...] 1 Active Lactulose 10 GM/15ML Oral Solution (Constulose)Indica [...] FOR NAUSEA 60 Tablet 5 3 Active Budesonide-Formote rol Fumarate 160-4.5 MCG/ACT Inhalation Aerosol (Symbicort) Inhale 2 Puffs by mouth in the morning and 2 Puffs before bedtime. 10.2 g 12 3 Active Atorvastatin Calcium 40 MG Oral Tablet (Lipitor)Indicatio ns:Dyslipidemia, goal LDL below 70 TAKE ONE TABLET BY MOUTH EVERY MORNING 90 Tablet 2 3 Active Ipratropium-Albute rol 0.5-2.5 (3) MG/3ML [...] for 06/25/23. 1 Each 1 3 Active Torsemide 20 MG Oral Tablet (Demadex)Indicatio ns:Atherosclerotic heart disease of tribe coronary artery with other forms of angina pectoris (HCC),Hypertensive heart disease with chronic diastolic congestive heart failure (HCC) TAKE 1 TABLET BY MOUTH EVERY MORNING. MAY TAKE 1 ADDITIONAL TABLET NEEDED FOR SWELLING. 90 Tablet 3 4 Active Xifaxan 550 MG Oral Tablet (rifAXIMin)Indicat ions:GONZALEZ (nonalcoholic steatohepatitis),C hronic liver disease and cirrhosis (HCC),Hepatic encephalopathy (HCC) TAKE 1 TABLET BY MOUTH TWICE DAILY 60 Tablet 5 4 Active Famotidine 40 MG Oral Tablet (Pepcid)Indication [...] 4 Active Spironolactone 50 MG Oral Tablet (Aldactone)Indicat ions:GONZALEZ (nonalcoholic steatohepatitis),P ortal hypertension (HCC),Chronic liver disease and cirrhosis (HCC),Portal hypertensive gastropathy (HCC) TAKE ONE TABLET BY MOUTH IN THE MORNING AND ONE TABLET BEFORE BEDTIME 180 Tablet 1 4 Active ARIPiprazole (ABILIFY) 2 MG Tablet Take 1 Tablet by mouth in the morning. 0 6 024 Discontinued(Me dication List Clean Up) NovoFine 32G X 6 MM (NOVOFINE 32G PEN NEEDLE) using twice a day with levemir 100 Each 5 1 024 Discontinued(Me dication List Clean Up) Insulin Glargine Solostar 100 UNIT/ML Subcutaneous Solution Pen-injector (Basaglar KwikPen)Indication s:Type 2 diabetes mellitus with diabetic neuropathy, with long-term current use of insulin (HCC) Inject 30 units under the skin twice daily 45 mL 3 2 024 Discontinued(Fo rmulary/Cost) Insulin Glargine Solostar 100 UNIT/ML Subcutaneous Solution Pen-injector (Basaglar KwikPen)Indication s:Type 2 diabetes mellitus with diabetic neuropathy, with long-term current use of insulin (HCC) Inject 30 units under the skin twice daily 45 mL 3 2 024 Discontinued(Jean-Pierre glover preference/disc ontinuation) Spiriva Respimat 2.5 MCG/ACT Inhalation Aerosol Solution (Tiotropium Nixa Monohydrate) Inhale by mouth 2 Puffs in the morning. 4 g 3 2 024 Discontinued(Nv dication List Clean Up) UltiCare Pen [place] 31G X 5 MM (Insulin Pen Needle) use TWICE DAILY 200 Each 3 3 024 Discontinued Sucralfate 1 GM Oral Tablet (Carafate)Indicati ons:Gastroesophage al reflux disease with esophagitis without hemorrhage TAKE 1 TABLET BY MOUTH EVERY MORNING 90 Tablet 3 024 Discontinued(Jean-Pierre glover preference/disc ontinuation) Nystatin 443892 UNIT/ML Mouth/Throat Suspension SWISH AND SWALLOW 5ML IN THE MORNING AND 5ML AT NOON AND 5 ML IN THE EVENING AND 5ML BEFORE BEDTIME, FOR THRUSH 240 mL 1 3 024 Discontinued(Re fill) metFORMIN HCl ER 500 MG Oral Tablet Extended Release 24 Hour (Glucophage XR) TAKE 1 TABLET BY MOUTH ONCE DAILY with dinner 90 Tablet 2 3 024 Discontinued Metoprolol Succinate ER 25 MG Oral Tablet Extended Release 24 Hour (toPROL XL)Indications:HTN , goal below 130/80 TAKE ONE TABLET BY MOUTH EVERY MORNING 90 Tablet 3 3 024 Discontinued oxyBUTYnin Chloride ER 10 MG Oral Tablet Extended Release 24 Hour (Ditropan XL) Take 1 Tablet by mouth in the morning. In the morning.. 90 Tablet 1 3 024 Discontinued Nystatin 842994 UNIT/GM External Powder (Nystop)Indication s:Candidal intertrigo Apply topically to affected area 3 times a day. Apply to right breast until rash resolved. 30 g 3 024 Discontinued(Re fill) Phenazopyridine HCl 200 MG Oral Tablet (Pyridium) Take 1 Tablet by mouth 3 times a day as needed for Pain, Mild. After meals for pain with urination 6 Tablet 3 024 Discontinued Vitamin D (Ergocalciferol) 1.25 MG (35686 UT) Oral Capsule (Drisdol)Indicatio ns:Vitamin D deficiency TAKE ONE CAPSULE BY MOUTH WEEKLY 12 Capsule 1 3 024 Discontinued Potassium Chloride Mag ER 20 MEQ Oral Tablet Extended Release TAKE 1 TABLET BY MOUTH EVERY MORNING when taking additional torsemide 30 Tablet 5 3 024 Discontinued Montelukast Sodium 10 MG Oral Tablet (Singulair)Indicat ions:Nasal sinus congestion,PND (post-nasal drip) TAKE 1 TABLET BY MOUTH ONCE DAILY 90 Tablet 3 3 024 Discontinued Nitroglycerin 0.4 MG Sublingual Tablet Sublingual (Nitrostat)Indicat ions:Chronic coronary artery disease Place 1 Tablet under the tongue every 5 minutes as needed for Pain, Chest. Max dose 3 tablets in 15 minutes 25 Tablet 5 3 024 Discontinued(Re fill) Tamsulosin HCl 0.4 MG Oral Capsule (Flomax) TAKE 1 CAPSULE BY MOUTH EVERY MORNING 90 Capsule 4 024 Discontinued predniSONE 10 MG Oral Tablet (Deltasone)Indicat ions:Localized swelling of left foot,Pain of toe of left foot Take 5 tabs for 2 days, 4 tabs for 2 days, 3 tabs for 2 days, 2 tabs for 2 days 1 tab for 2 days 30 Tablet 4 024 Discontinued(Nv dication List Clean Up) Gabapentin 300 MG Oral Capsule (Neurontin)Indicat ions:Lumbar spondylosis TAKE 1 CAPSULE BY MOUTH TWICE DAILY 60 Capsule 1 4 024 Discontinued Insulin Glargine Solostar 100 UNIT/ML Subcutaneous Solution Pen-injector (Basaglar KwikPen) Inject 20 Units under the skin 2 times a day. 45 mL 1 4 024 Discontinued(Jean-Pierre glover preference/disc ontinuation) Sulfamethoxazole-T rimethoprim 400-80 MG Oral Tablet (Bactrim) Take 1 Tablet by mouth daily. Do not start before August 31, 2023. 30 Tablet 5 4 024 Discontinued(Jean-Pierre glover preference/disc ontinuation) Trulicity 4.5 MG/0.5ML Subcutaneous Solution Pen-injector (Dulaglutide) inject 4.5mg under the skin once per week 6 mL 1 4 024 Discontinued(Me dication/Dose Changed) clonazePAM 0.5 MG Oral Tablet (KlonoPIN)Indicati ons:Bipolar I disorder, most recent episode depressed, moderate (HCC) TAKE ONE TABLET BY MOUTH THREE TIMES DAILY 90 Tablet 4 024 Discontinued(Re fill) Cephalexin 500 MG Oral Capsule (Keflex) Take 1 Capsule by mouth in the morning and 1 Capsule at noon and 1 Capsule before bedtime. 30 Capsule 4 024 Discontinued(Me dication List Clean Up) documented as of this encounter (statuses as of 01/05/2024) Active Problems Problem Noted Date Diagnosed Date [...] mg daily Coronary artery disease invo lving tribe coronary artery of tribe heart without angina pectoris 11/15/2021 Last Assessment & Plan: Stable. No angina -continue toprol, ASA and statin Seasonal allergies 11/15/2021 Recurrent UTI 10/07/2021 Last Assessment & Plan: Followed by urology Pt is supposed to be on methenamine--will need to clarify with dgt that she is giving this. 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 Type 2 diabetes mellitus [...] 01/16/22 Moderate aortic stenosis 05/06/2018 Anxiety 08/05/2017 Abpgxbe-Pxmap-Skwqe disease 06/27/2015 Last Assessment & Plan: Frequent [...] as of this encounter (statuses as of 01/05/2024) Resolved Problems Problem Noted Date Diagnosed Date [...] liver 05/06/2018 Atherosclerotic heart diseas e of tribe coronary artery with other forms of [...] stenosis 10/31/2010 08/28/2018 Acute coronary syndrome 10/30/201001/04 BLAUVELT Research Other*[id number] 02/02/2010 04/18/2014 Overview: [place] Registry, Dr Joel CASAS Obesity, morbid (more [...] 01/21/2014 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 Domínguez's message and verbalizes understanding She will collect urine sample and bring in to the lab Then start the Cephalexin * Telephone Encounter - Jeny Singh OSA - 10/08/2023 1:53 PM EDT Patient's DTR Carolyn calling to s/w Dr. Wall in regards to her Mom's Urinalysis results from 10/03/2023, concerned about patient needing an antibiotic if abnormal. Please contact patient's DTr Angleawith information. Urinalysis was done under Dr. Wall's Lab order, so they need the results per Carolyn, thank you. * Telephone Encounter - Brian Domínguez MD - 10/08/2023 1:46 PM EDT Fine for ua and culture - signed. Once collected, can start cephalexin - but we may need to change abx once culture results known * Telephone Encounter - Ade Domínguez LPN - 10/08/2023 1:30 PM EDT Daughter calling about patients urine results from 10/03/[address] Wall's office and has not had any success hearing back from them She states that she is not able to see the urine culture [facility] Ad[facility] that I do not see that a Urine Culture was ordered or completed on 10/03/23 only a Urinalysis, Reflex to Micro Daughter is very upset that a culture was not done with how the Urinalysis results look She is also very frustrated about not getting a response from Dr. Wall's office Daughter is requesting PCP looks at the Urinalysis Also that he order a new Urinalysis and Culture for patient to have done today Asking if patient could be started on antibiotic now with the Urinalysis results from 10/03/23 She is going to call Dr. Wall's office again now but would like to have PCP order the urine tests in case she is not able to get anywhere when she calls them Pharm selected. Please advise. Called office, spoke to Marva - she made PCP aware * Telephone Encounter - Rashmi Dai OSA - 10/07/2023 1:36 PM EDT Patient calling in to check on the status of previous message. Patient Called within 48 hour timeframe. Reminded patient of 48 hour turn-around time. * Telephone Encounter - Hue Álvarez OSA - 10/06/2023 11:28 AM EDT Who is Requesting Test Results: Pt & Pt Daughter Primary Care Provider : Brian Domínguez MD Tests Results Requested : UA Date of Test : 10/03/23 Location of Test: [facility] Ordering Provider: Buzz Wall Patient has been made aware that the turnaround time for test results are typically as follows: Laboratory results = within 2-3 days ([facility]), 3-5 days ([facility], ie[facility]) Urine Cultures = within 2-3 days depending on growth within the culture Pathology results (biopsy results/PAP) = 1-2 weeks Radiology results = about 1 week Cologuard results = within 2 weeks from the shipment date COVID testing = about 24 hours documented in this encounter Plan of Treatment Upcoming Encounters Date Type Department Care Team (Late st Contact Info) Description 01/16/2024 9:45 AM EDT Office Visit Urology Kimberly Harmon [address] [place] [id number] Alfredo Panda MD [address] [place] [address] [address] 01/26/2024 3:45 PM EDT Procedure Only Urology, [facility] [address] [facility] [place] [address] Alfredo Panda MD [address] [place] [address] 02/09/2024 9:00 AM EDT [facility] [address] [facility] [place] [address] Kirby Valenzuela PA-C [address] [facility] [place] [address] 02/25/2024 11:00 AM EDT Office Visit Cardiology, [facility] [address] [facility] [place] [address] Haydee Pop CRNP [address] [facility] [place] [address] 03/02/2024 4:00 PM EDT [address] [address] 06/08/2024 6:00 PM EST Office Visit [facility] [address] [place] [id number] Brian Domínguez MD [address] [place] [address] Scheduled Procedures Name Priority Associated Diagnoses Date/Ti [...] 06/10/2021, 08/29/2020, 08/01/2020 CKD PHOS USE SMARTSET 58254 10/24/202310/05, 02/18/2022, 02/17/2022, Additional history exists Influenza [...] Additional history exists CKD HGB USE SMARTSET 72091 12/10/202412/10, 08/04/2023, 08/04/2023, Additional history exists O2 [...] this encounter Medical Devices Implanted Type Area Olap Developer Device Identifier Shelf Expiration Date Model / Serial / Lot Sut Steel 6 M654g - [id number] Implanted:Qty: 3 on 02/15/2011 at [place] [facility] [place] N/A: Chest DO NOT USE 01/15/2015 M654G / / [id number] Band Magdy 225-241 - [id number] Implanted:Qty: 1 on 02/15/2011 at OR [facility] [place] N/A: Chest [employer] 225-241 / / [id number] Sut Steel 6 M654g - [id number] Implanted:Qty: 1 on 02/15/2011 at OR [facility] [place] N/A: Chest DO NOT USE 07/21/2015 M654G / / [id number] documented as of this encounter Results * CULTURE, URINE, QUANTITATIVE (10/09/2023 8:47 AM EDT) Pathologist [facility] Culture Growth Multiple indira suggests contamination or colonization 10/10/2023 11:36 AM EDT LABORATORY [facility] Urine Urine specimen obtained by clean catch procedure / Unknown Non-blood Collection / Unknown 10/09/2023 8:47 AM EDT 10/09/2023 8:47 AM EDT Brian Domínguez MD LAB MICRO - GENERA L ORDERABLES Performing Organization Address City/State/[facility] Co de Phone Number LABORATORY [facility] [address] [place] [address] * (ABNORMAL) URINALYSIS, REFLEX TO MICROSCOPIC (10/09/2023 8:47 AM EDT) Color, Urine Light Yellow Colorless, Light Yellow, Yellow, Dark Yellow 10/09/2023 2:35 PM EDT LABORATORY [facility] Clarity, Urine Clear Clear 10/09/2023 2:35 PM EDT LABORATORY [facility] Glucose, Urine Negative Negative mg/dL 10/09/2023 2:35 PM EDT LABORATORY [facility] Bilirubin, Urine Negative Negative 10/09/2023 2:35 PM EDT LABORATORY [facility] Ketone, Urine Negative Negative mg/dL 10/09/2023 2:35 PM EDT LABORATORY [facility] Specific [place], Urine 1.010 1.003 - 1.030 10/09/2023 2:35 PM EDT LABORATORY [facility] Blood, Urine Negative Negative 10/09/2023 2:35 PM EDT LAB[facility]ATORY [facility] pH, Urine 6.0 5.0 - 7.5 Units 10/09/2023 2:35 PM EDT LAB[facility]ATORY [facility] Protein, Urine Negative Negative mg/dL 10/09/2023 2:35 PM EDT LAB[facility]ATORY [facility] Urobilinogen, Urine Normal Normal mg/dL 10/09/2023 2:35 PM EDT LAB[facility]ATORY [facility] Nitrite, Urine Negative Negative 10/09/2023 2:35 PM EDT LAB[facility]ATORY [facility] Esterase, Urine Large(A) Negative 10/09/2023 2:35 PM EDT LAB[facility]ATORY [facility] RBC, Urine 6-9(A) 0 - 2 /HPF 10/09/2023 2:35 PM EDT LAB[facility]ATORY [facility] WBC, Urine 50+(A) 0 - 2 /HPF 10/09/2023 2:35 PM EDT LAB[facility]ATORY [facility] Bacteria, Urine 0-25 0 - 25 /HPF 10/09/2023 2:35 PM EDT LAB[facility]ATORY [facility] Hyaline, Cast, Urine 1-4(A) None /LPF 10/09/2023 2:35 PM EDT LAB[facility]ATORY [facility] Urine Urine specimen obtained by clean catch procedure / Unknown Non-blood Collection / Unknown 10/09/2023 8:47 AM EDT 10/09/2023 8:47 AM EDT Brian Domínguez MD LAB URINE ORDERABL ES LABORATORY [facility] [address] [place] [address] documented in this encounter Visit Diagnoses Diagnosis Dysuria- Primary documented in this encounter Advance Directives Documents on File Type Date Recorded Patient 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
--- OUTSIDE RECORDS SUMMARY | 2024-03-03 08:13 | External Medical Summary | Summary of Care ---
Author Name Unknown Organization [facility] Address [address] [facility] [place] [address] Phone [phone] Care Team Providers Care Insights Analyst Name Role Phone Brian Domínguez MD Primary Care Provider [phone]- [phone] Reason for Visit * Reason Onset Date Comments [facility]: Maintenance 01/05/2024 Encounter Details Date Type Department Care Team (Late st Contact Info) Description 01/05/2024 12:00 PM EDT Scheduled Telephone [facility], [facility] [address] [place] [address] Coordinator, [facility] [address] [place] [address] Allergies Active Allergy Reactions Criticality Noted Date Comments Propoxyphene Hcl Rash Low 10/29/2010 Fentanyl Diarrhea Low 04/26/2010 anxiety Methocarbamol Medium 10/05/2020 Other reaction(s): Delirium Methocarbamol Low 04/15/2007 Zolpidem Low 10/05/2020 Other reaction(s): Confusion documented as of this encounter (statuses as of 01/05/2024) Medications Medication Sig Dispensed Refills Start Date End Date Status venlafaxine XR (EFFEXOR XR) 150 MG [id number]:Dep ression Take 1 Cap by mouth daily. [...] Kit 11/18/2017 Active Blood Glucose Monitoring Suppl ([employer] VERIO) w/Device KIT Use as directed. Use as directed. 1 Kit 10/31/2018 Active Spacer/Aero-Holding Chambers WISAM Use with inhaler. Wheezing/bronchitis . 1 Device 04/08/2019 Active Lancet Devices (ET WaterTOUCH DELICA LANCING DEV) MISC Use four times [...] AND ONE TABLET BEFORE BEDTIME 180 Tablet 10/07/2023 Active Tamsulosin HCl 0.4 MG Oral Capsule (Flomax) TAKE 1 CAPSULE BY MOUTH EVERY MORNING 90 Capsule 10/15/2023 Active Gabapentin 300 MG Oral Capsule (Neurontin)Indicati ons:Lumbar spondylosis TAKE 1 CAPSULE BY MOUTH TWICE DAILY 60 Capsule 10/14/2023 Active Nitroglycerin 0.4 MG Sublingual Tablet Sublingual (Nitrostat)Indicati ons:Chronic coronary artery disease Place 1 Tablet under the tongue every 5 minutes as needed for Pain, Chest. Max dose 3 tablets in 15 minutes 25 Tablet 5 10/16/2023 Active Nystatin 193918 UNIT/GM External Powder (Nystop)Indications :Candidal intertrigo Apply topically to affected area 3 times a day. Apply to right breast until rash resolved. 30 g 10/16/2023 Active Nystatin 727592 UNIT/ML Mouth/Throat Suspension SWISH AND SWALLOW 5ML IN THE MORNING AND 5ML AT NOON AND 5 ML IN THE EVENING AND 5ML BEFORE BEDTIME, FOR THRUSH 240 mL 1 10/16/2023 Active Metoprolol Succinate ER 25 MG Oral Tablet Extended Release 24 Hour (toPROL XL)Indications:HTN, goal below 130/80 TAKE 1 TABLET BY MOUTH EVERY MORNING 90 Tablet 10/25/2023 Active Vitamin D (Ergocalciferol) 1.25 MG (56755 UT) Oral Capsule (Drisdol)Indication s:Vitamin D deficiency [...] giving this. Pt also to see uro-commercial coordinator and ID Type 2 diabetes mellitus [...] 01/16/22 Moderate aortic stenosis 05/06/2018 Anxiety 08/05/2017 Ojdmqed-Otdik-Jcuhy disease 06/27/2015 Last Assessment & Plan: Frequent [...] stenosis 10/31/2010 08/28/2018 Acute coronary syndrome 10/30/201001/04 [place] Research Other*[id number] 02/02/2010 04/18/2014 Overview: [place] [facility], Dr Joel Kwon PI Obesity, morbid [...] 11/24/2023 Does the household have a [facility] source of income? (Household - for [...] Miscellaneous Notes * Telephone Encounter - Andie Francois RN - 01/05/2024 12:25 PM EDT [facility] Telephonic Nurse Follow-Up Call [facility] Subprogram: Focused Care Management (3-9 months) Follow Up Call Type: Routine follow up call / Status Check Acute issue requiring follow-up call: Other: phone assessment Objective: 12/31/2023 5:30 PM 12/31/2023 4:41 PM 12/31/2023 4:30 PM 12/31/2023 4:20 PM 12/31/2023 4:15 PM VITALS ACROSS ENCOUNTERS BP 123/74 126/63 124/72 142/65 135/66 Pulse 68 69 71 74 73 Remote Patient Monitoring: NONE Oxygen Needs: NO supplemental oxygen needs identified DME Needs: NO DME needs identified Medications: Was bottles out med rec completed : no -added home visit back on due to not feeling well and havingpain around catheter site. If no, why? Does pt need any refills on medications? New medication(s) added: Cefdinir extended Subjective: Condition Status: Worsening of symptoms Current Concerns: Spoke with patient who reports that she isnt feeling well today. States she was up all night with nausea. Taking her PRN zofran, but not every 8 hours. Took a dose about 45 minutes prior to call. Also just had suprapubic catheter placed. States she is having a lot of pain around site and some drainage. Daughter not present at time of call. Denies fever/chills. Unsure what color drainage is. Discussed with primary RNCM who will see pt today to address complaints. HPI: Constitutional: + fatigue Resp: no cough, no sputum, no wheezing, and no SOB Cardiac: no chest pain, no orthopnea, and no dyspnea on exertion GI: no heartburn, no diarrhea, no constipation, + pain Musculoskeletal: no significant joint or muscle pain and no swelling Neuro: no memory loss and no weakness Education Provided: Disposition: Follow up call scheduled for tomorrow with REHEAT FURNACE OPERATOR Strap Cutter and RNCM visit scheduled Future Visits Scheduled: Future Appointments-next 60 days Date/Time Provider Specialty Dept Phone 01/16/2024 9:45 AM (Arrive by 9:30 AM) Alfredo Panda MD Urology [phone] 01/26/2024 3:45 PM (Arrive by 3:30 PM) Alfredo Panda MD Urology [phone] 02/09/2024 9:00 AM Kirby Valenzuela PA-C [facility] [phone] 02/25/2024 11:00 AM (Arrive by 10:45 AM) Haydee Pop CRNP Cardiology [phone] 03/02/2024 4:00 PM [facility] Radiology [phone] 06/08/2024 6:00 PM (Arrive by 5:45 PM) Brian Domínguez MD Family Medicine [phone] Andie Francois, RN documented in this encounter Plan of Treatment Upcoming Encounters Date Type Department Care Team (Late st Contact Info) Description 01/05/2024 4:00 PM EDT Home Visit [facility] [place], [facility] [address] [address] Connie Mccullough, RN [address] [place] [address] [address] 01/16/2024 9:45 AM EDT Office Visit Urology Kimberly Harmon [address] [facility] [address] [place] [address] [address] Alfredo Panda MD [address] [address] 01/26/2024 3:45 PM EDT Procedure Only Urology, [facility] [address] [address] Alfredo Panda MD [address] [address] [address] 02/09/2024 9:00 AM EDT [facility] Visit [facility] [place], [facility] [address] [address] Kirby Valenzuela PA-C [address] [place] [address] 02/25/2024 11:00 AM EDT Office Visit Cardiology, [facility] [address] [facility] [place] [address] Haydee Pop CRNP [address] [place] [address] 03/02/2024 4:00 PM EDT Imaging Radiology, [facility] [address] [facility], [place] [address] 06/08/2024 6:00 PM EST Office Visit [facility] [address] [place] [id number] Brian Domínguez MD [address] [place] [address] Scheduled Procedures Name Priority Associated Diagnoses Date/Ti [...] 06/10/2021, 08/29/2020, 08/01/2020 CKD PHOS USE SMARTSET 44622 10/24/2023 04/03/2023, 02/18/2022, 02/17/2022, Additional history exists Influenza Vaccine [...] Additional history exists CKD HGB USE SMARTSET 35588 12/10/202412/10, 08/04/2023, 08/04/2023, Additional history exists O2 [...] this encounter Medical Devices Implanted Type Area Insole Cementer Device Identifier Shelf Expiration Date Model / Serial / Lot Sut Steel 6 M654g - [id number] Implanted:Qty: 3 on 02/15/2011 at OR [facility] N/A: Chest DO NOT USE 01/15/2015 M654G / / [id number] [facility] 225-020 - [id number] Implanted:Qty: 1 on 02/15/2011 at OR [facility] N/A: Chest [employer] 130-430 / / [id number] Sut Steel 6 M654g - [id number] Implanted:Qty: 1 on 02/15/2011 at OR [facility] N/A: Chest DO NOT USE 07/21/2015 M654G / / [id number] documented as of this encounter Advance Directives Documents on File Type Date Recorded Patient Final Assembler Expl anation POLST 05/06/2018 POLST * Full [...] on File Name Relationship Healthcare Agent [facility] Carolyntimothy Ballard Adult Child Health Care Agent Care Teams Insights Analyst Relationship Specialty Start Date End Date Brian Domínguez MD [address] [place] [address] PCP - General Family Medicine 07/16/17 documented as of this encounter
--- OUTSIDE RECORDS SUMMARY | 2024-03-03 08:13 | External Medical Summary | Summary of Care ---
Author Name Unknown Organization [facility] Address [address] [place] [address] Phone [phone] Care Team Providers Care Electric Range Assembler Name Role Phone Brian Domínguez MD Primary Care Provider [phone]- [phone] Reason for Visit * Reason Onset Date Comments Post-Op 01/01/2024 Advice 01/01/2024 Encounter Details Date Type Department Care Team (Late st Contact Info) Description 01/01/2024 Telephone Access Center, [facility] [address] [facility] *DO NOT REMOVE THIS DEPARTMENT* [place] [address] Services, Scheduling [address] [place] [address] Post-Op; Advice Allergies Active Allergy Reactions Criticality Noted Date Comments Propoxyphene Hcl Rash Low 10/29/2010 Fentanyl Diarrhea Low 04/26/2010 anxiety Methocarbamol Medium 10/05/2020 Other reaction(s): Delirium Methocarbamol Low 04/15/2007 Zolpidem Low 10/05/2020 Other reaction(s): Confusion documented as of this encounter (statuses as of 01/05/2024) Medications Medication Sig Dispensed Refills Start Date End Date Status venlafaxine XR (EFFEXOR XR) 150 MG [id number]:De pression Take 1 Cap by mouth daily. [...] Kit 8 Active Blood Glucose Monitoring Suppl ([employer] VERIO) w/Device KIT Use as directed. Use as directed. 1 Kit 9 Active Spacer/Aero-Holdin g Chambers WISAM Use with inhaler. Wheezing/bronchiti s. 1 Device 9 Active Lancet Devices (USEUMUCH DELICA LANCING DEV) MISC Use four times [...] Oral Tablet (Demadex)Indicatio ns:Atherosclerotic heart disease of [place] coronary artery [...] BEFORE BEDTIME 180 Tablet 1 4 Active Tamsulosin HCl 0.4 MG Oral Capsule (Flomax) TAKE 1 CAPSULE BY MOUTH EVERY MORNING 90 Capsule 4 Active Gabapentin 300 MG Oral Capsule (Neurontin)Indicat ions:Lumbar spondylosis TAKE 1 CAPSULE BY MOUTH TWICE DAILY 60 Capsule 4 Active Nitroglycerin 0.4 MG Sublingual Tablet Sublingual (Nitrostat)Indicat ions:Chronic coronary artery disease Place 1 Tablet under the tongue every 5 minutes as needed for Pain, Chest. Max dose 3 tablets in 15 minutes 25 Tablet 5 4 Active Nystatin 399301 UNIT/GM External Powder (Nystop)Indication s:Candidal intertrigo Apply topically to affected area 3 times a day. Apply to right breast until rash resolved. 30 g 4 Active Nystatin 106891 UNIT/ML Mouth/Throat Suspension SWISH AND SWALLOW 5ML [...] 4 Active Vitamin D (Ergocalciferol) 1.25 MG (84897 UT) Oral Capsule (Drisdol)Indicatio ns:Vitamin D deficiency [...] ONCE DAILY 90 Tablet 3 4 Active clonazePAM 0.5 MG Oral Tablet (KlonoPIN)Indicati ons:Bipolar I disorder, most recent episode depressed, moderate (HCC) TAKE ONE TABLET BY MOUTH THREE TIMES DAILY 90 Tablet 4 Active Potassium Chloride Mag ER 20 [...] a day 200 Each 2 4 Active oxyCODONE-Acetamin ophen 5-325 MG Oral Tablet (Percocet) Take 1 Tablet by mouth every 8 hours as needed for Pain, Severe. 8 Tablet 4 Active Cefdinir 300 MG Oral Capsule (Omnicef) Take 1 Capsule by mouth in the morning and 1 Capsule before bedtime. 10 Capsule 4 Active Trulicity 4.5 MG/0.5ML Subcutaneous Solution Pen-injector (Dulaglutide) inject 4.5mg under the skin once per week 6 mL 1 4 01/01/20 24 Discontinue d(Medicatio n/Dose Changed) Cefdinir 300 MG Oral Capsule (Omnicef) Take 1 Capsule by mouth in the morning and 1 Capsule before bedtime. Do all this for 10 days. 20 Capsule 4 01/03/20 24 Additional Information Patient not taking.Reported on 12/24/2023 [...] daily Coronary artery disease invo lving [place] coronary artery of [place] heart without angina pectoris 11/15/2021 Last Assessment & Plan: Stable. No angina -continue toprol, ASA and statin Seasonal allergies 11/15/2021 Recurrent UTI 10/07/2021 Last Assessment & Plan: Followed by urology Pt is supposed to be on methenamine--will need to clarify with dgt that she is giving this. 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 [...] stenosis 10/31/2010 08/28/2018 Acute coronary syndrome 10/30/201001/[address] Research Other*[id number] 02/02/2010 04/18/2014 Overview: [place] [facility], Dr Joel Kwon PI Obesity, morbid [...] Telephone Encounter - Hue Coates LPN - 01/01/2024 4:01 PM EDT Left detailed message on identified voicemail. * Telephone Encounter - Alfredo Panda MD - 01/01/2024 3:52 PM EDT Will extend cefdinir to allow for adequate postoperative coverage. Originally, patient was providedBactrim by our service and cefdinir by primary care physician. Will expect some spasticity while the bladder heals. Follow-up as scheduled. Thanks, HM * Telephone Encounter - Hue Coates LPN - 01/01/2024 1:[address] Panda: Spoke with Angelina Leon's daughter. Reports that SPT is draining well, but patient is having wet briefs as well. Advised daughter this is normal and may take a few weeks to resolve. Daughter also states that patient finished cefdinir this morning, and asking if you want patient tohave another round of antibiotics, or if she was just to finish out this course. Patient uses [facility]. Thank you Yudith * Telephone Encounter - Kendall Emerson OSA - 01/01/2024 1:19 PM EDT Pt daughter is returning your phone call. Please reach out to her. Thank You Kendall * Telephone Encounter - Hue Coates LPN - 01/01/2024 1:00 PM EDT lmtcb * Telephone Encounter - Andie Escobedo OSA - 01/01/2024 12:26 PM EDT Pt's daughter Carolyn calling requesting to speak to Yudith at Dr Panda's office about post op concerns. Please reach out to advise [phone] documented in this encounter Plan of Treatment Upcoming Encounters Date Type Department Care Team (Late st Contact Info) Description 01/16/2024 9:45 AM EDT Office Visit Urology Kimberly Harmon [address] [facility] [address] [address] Alfredo Panda MD [address] [address] 01/26/2024 3:45 PM EDT Procedure Only Urology, [facility] [address] [address] Alfredo Panda MD [address] [address] 02/09/2024 9:00 AM EDT Home Visit [facility] [address] [address] Kirby Valenzuela PA-C [address] [address] 02/25/2024 11:00 AM EDT Office Visit Cardiology, [facility] [address] [address] Haydee Pop CRNP [address] [address] 03/02/2024 4:00 PM EDT Imaging Radiology, [facility] [address] [facility] [place] [address] 06/08/2024 6:00 PM EST [facility] [address] [facility] [address] Brian Domínguez MD [address] [facility] [place] [id number] Scheduled Procedures Name Priority Associated Diagnoses Date/Ti [...] 06/10/2021, 08/29/2020, 08/01/2020 CKD PHOS USE SMARTSET 84803 10/24/202310/05, 02/18/2022, 02/17/2022, Additional history exists Influenza [...] Additional history exists CKD HGB USE SMARTSET 02404 12/10/202412/10, 08/04/2023, 08/04/2023, Additional history exists O2 [...] this encounter Medical Devices Implanted Type Area Wrapper Opener Device Identifier Shelf Expiration Date Model / Serial / Lot Sut Steel 6 M654g - [id number] Implanted:Qty: 3 on 02/15/2011 at [place] [facility] N/A: Chest DO NOT USE 01/15/2015 M654G / / [id number] [facility] 225-241 - [id number] Implanted:Qty: 1 on 02/15/2011 at [place] [facility] N/A: Chest [employer] 225-241 / / [id number] Sut Steel 6 M654g - [id number] Implanted:Qty: 1 on 02/15/2011 at [place] [facility] N/A: Chest DO NOT USE 07/21/2015 M654G / / [id number] documented as of this encounter Advance Directives Documents on File Type Date Recorded Patient Education Administrator Expl anation POLST 05/06/2018 POLST * Full [...] Adult Child Health Care Agent Care Teams Electric Range Assembler Relationship Specialty Start Date End Date Brian Domínguez MD [address] [place] [address] PCP - General Family Medicine 07/16/17 documented as of this encounter
--- OUTSIDE RECORDS SUMMARY | 2024-03-03 08:13 | External Medical Summary | Summary of Care ---
Author Name Unknown Organization [facility] Address [address] [place] [address] Phone [phone] Care Team Providers Care Staff Physical Therapy Assistant Name Role Phone Carmen Sifuentes MD Primary Care Provider +1- [phone] Reason for Visit * Reason Onset Date Comments [facility]: Maintenance 01/01/2024 Encounter Details Date Type Department Care Team (Late st Contact Info) Description 01/01/2024 Telephone [facility], [facility] [address] [facility] [place] [address] [facility], Nurse [facility] [address] [facility] [place] [address] [facility]: Maintenance Allergies Active Allergy Reactions Criticality Noted Date Comments Propoxyphene Hcl Rash Low 10/29/2010 Fentanyl Diarrhea Low 04/26/2010 anxiety Methocarbamol Medium 10/05/2020 Other reaction(s): Delirium Methocarbamol Low 04/15/2007 Zolpidem Low 10/05/2020 Other reaction(s): Confusion documented as of this encounter (statuses as of 01/01/2024) Medications Medication Sig Dispensed Refills Start Date End Date Status venlafaxine XR (EFFEXOR XR) 150 MG [id number]:Dep ression Take 1 Cap by mouth daily. [...] Kit 8 Active Blood Glucose Monitoring Suppl (SoftGenetics VERIO) w/Device KIT Use as directed. Use as directed. 1 Kit 9 Active Spacer/Aero-Holding Chambers WISAM Use with inhaler. Wheezing/bronchiti s. 1 Device 9 Active Lancet Devices (MedaPhorTOUCH DELICA LANCING DEV) MISC Use four times [...] Oral Tablet (Demadex)Indication s:Atherosclerotic heart disease of [place] coronary artery with other forms of angina [...] minutes 25 Tablet 5 4 Active Nystatin 727376 UNIT/GM External Powder (Nystop)Indications :Candidal intertrigo Apply topically to affected area 3 times a day. Apply to right breast until rash resolved. 30 g 4 Active Nystatin 135835 UNIT/ML Mouth/Throat Suspension SWISH AND SWALLOW 5ML IN THE MORNING AND 5ML AT NOON AND 5 ML IN THE EVENING AND 5ML BEFORE BEDTIME, FOR THRUSH 240 mL 1 4 Active Metoprolol Succinate ER 25 MG Oral Tablet Extended Release 24 Hour (toPROL XL)Indications:HTN, goal below 130/80 TAKE 1 TABLET BY MOUTH EVERY MORNING 90 Tablet 4 Active Vitamin D (Ergocalciferol) 1.25 MG (09602 UT) Oral Capsule (Drisdol)Indication s:Vitamin D deficiency [...] a day 200 Each 2 4 Active Cefdinir 300 MG Oral Capsule (Omnicef) Take 1 Capsule by mouth in the morning and 1 Capsule before bedtime. Do all this for 10 days. 20 Capsule 4 01/03/20 24 Active Additional Information Patient not taking.Reported on 12/24/2023 oxyCODONE-Acetamino phen 5-325 MG Oral Tablet (Percocet) Take 1 Tablet by mouth every 8 hours as needed for Pain, Severe. 8 Tablet 4 Active Ozempic (2 MG/DOSE) 8 MG/3ML Subcutaneous Solution Pen-injector (Semaglutide (2 MG/DOSE))Indication s:Type 2 diabetes mellitus with diabetic neuropathy, with long-term current use of insulin (HCC) Inject 2 mg subcutaneous once per week 3 mL 5 4 Active Trulicity 4.5 MG/0.5ML Subcutaneous Solution Pen-injector (Dulaglutide) inject 4.5mg under the skin once per week 6 mL 1 4 01/01/20 24 Discontinu ed(Medicat ion/Dose Changed) documented as of this encounter (statuses as of 01/01/2024) Active Problems Problem Noted Date Diagnosed Date [...] mg daily Coronary artery disease invo lving [place] coronary artery of [place] heart without angina pectoris 11/15/2021 Last Assessment & Plan: Stable. No angina -continue toprol, ASA and statin Seasonal allergies 11/15/2021 Recurrent UTI 10/07/2021 Last Assessment & Plan: Followed by urology Pt is supposed to be on methenamine--will need to clarify with dgt that she is giving this. Pt also to see uro-[employer]izza [employer] team member and ID Type 2 diabetes mellitus wit [...] 01/16/22 Moderate aortic stenosis 05/06/2018 Anxiety 08/05/2017 Jgxngec-Jkbks-Rxvgm disease 06/27/2015 Last Assessment & Plan: Frequent [...] as of this encounter (statuses as of 01/01/2024) Resolved Problems Problem Noted Date Diagnosed Date [...] liver 05/06/2018 Atherosclerotic heart diseas e of [place] coronary artery with other forms of angina [...] stenosis 10/31/2010 08/28/2018 Acute coronary syndrome 10/30/201001/04 [place] Research Other*[id number] 02/02/2010 04/18/2014 Overview: [place] [facility], Dr Joel CASAS Obesity, morbid (more [...] as of this encounter (statuses as of 01/01/2024) Immunizations Name Administration Dates Next Due COVID-19 [...] encounter Miscellaneous Notes * Addendum Note - Carmen Sifuentes MD [...] if it is abnormal for a pt to urinate with a cath in place. Carolyn also [...] Team (Late st Contact Info) Description 01/05/2024 2:00 PM EDT Home Visit [facility] at [facility] [address] [address] [address] Connie Mccullough RN [address] [place] [address] 01/16/2024 9:45 AM EDT Office Visit Urology Kimberly Harmon [address] [place] [address] [place] [address] Alfredo Panda MD [address] [place] [address] 01/26/2024 3:45 PM EDT Procedure Only Urology, [facility] [address] [address] Alfredo Panda MD [address] [place] [address] 02/09/2024 9:00 AM EDT Home Visit [facility] at [facility] [address] [address] Kirby Valenzuela PA-C [address] [place] [address] 03/02/2024 4:00 PM EDT Imaging Radiology, [place] [id number] [facility] [place], [place] [address] 06/08/2024 6:00 PM EST Office Visit [facility] [address] [place] [place] [address] Carmen Sifuentes MD [address] [place] [address] Scheduled Procedures Name Priority Associated [...] 06/10/2021, 08/29/2020, 08/01/2020 CKD PHOS USE SMARTSET 19958 10/24/202310/05, 02/18/2022, 02/17/2022, Additional history exists GFR 04/21/2024 10/21/2023, 07/08, 06/17/2023, Additional history exists Colonoscopy 05/20/2024 05/20/2014 Colorectal Cancer Screening 05/20/2024 HbA1c 06/11/2024 12/11/2023, 06/06, 10/23/2022, Additional history exists TSH 06/17/2024 06/17/2023, 05/08, 02/13/2023, Additional history exists Diabetic Foot Exam 10/15/2024 10/16/2023, 1 07/22/2019, 02/22/2019, Additional history exists Albumin/Creatinine Ratio 11/03/20242 024, 10/23/2022, 07/17/2022, Additional history exists CKD HGB USE SMARTSET 49355 12/10/202412/10, 08/04/2023, 08/04/2023, Additional history exists O2 ASSESSMENT COMPLETED IN PAST YEAR FOR COPD 12/30/2024 12/31/2023 DTaP,Tdap,and Td Vaccines (2 - Td or Tdap) 06/27/2025 06/27/2015 Hepatitis C Screening Completed 07/04/2011, 011 Pneumococcal Vaccine: 65+ Years Completed 02/14/2017, 02/06/2016, 06/26/2011, Additional history exists Influenza Vaccine (FLU shot) Completed 06/2023, 03/14/2022, 03/14/2022, Additional history exists GARDASIL-HPV IMMUNIZATION SERIES Aged Out No longer eligible based on patient's age to complete this topic MENINGOCOCCAL (MENACTRA/MENVEO) Aged Out No longer eligible based on patient's age to complete this topic documented as of this encounter Medical Devices Implanted Type Area Retail Support Specialist Device Identifier Shelf Expiration Date Model / Serial / Lot Sut Steel 6 M654g - [id number] Implanted:Qty: 3 on 02/15/[address] [facility] N/A: Chest DO NOT USE 01/15/2015 M654G / / [id number] [facility] 225-241 - [id number] Implanted:Qty: 1 on 02/15/[address] [facility] N/A: Chest [employer] 225-241 / / [id number] Sut Steel 6 M654g - [id number] Implanted:Qty: 1 on 02/15/[address] [facility] N/A: Chest DO NOT USE 07/21/2015 M654G / / [id number] documented as of this encounter Visit Diagnoses Diagnosis Type 2 diabetes mellitus with diabetic neuropathy, with long-term current use of insulin (HCC)- Primary documented in this encounter Advance Directives Documents on File Type Date Recorded Patient Pharmacist Aide Expl anation POLST 05/06/2018 POLST * Full [...] Adult Child Health Care Agent Care Teams Staff Physical Therapy Assistant Relationship Specialty Start Date End Date Carmen Sifuentes MD [address] [place] [address] PCP - General Family Medicine 07/16/17 documented as of this encounter
--- OUTSIDE RECORDS SUMMARY | 2024-03-03 08:13 | External Medical Summary | Summary of Care ---
Author Name Unknown Organization [facility] Address [address] [place] [address] Phone [phone] Care Team Providers Care Clinical Informatics Strategist Name Role Phone Brian Domínguez MD Primary Care Provider +1- [phone] Reason for Visit * Reason Onset Date Comments Pre Cert/Prior Auth 12/23/2023 Xifaxan Encounter Details Date Type Department Care Team (Late st Contact Info) Description 12/23/2023 Telephone [facility] [address] [place] [address] Brian Domínguez MD [address] [place] [address] Pre Cert/Prior Auth (Xifaxan) Allergies Active Allergy Reactions Criticality Noted Date Comments Propoxyphene Hcl Rash Low 10/29/2010 Fentanyl Diarrhea Low 04/26/2010 anxiety Methocarbamol Medium 10/05/2020 Other reaction(s): Delirium Methocarbamol Low 04/15/2007 Zolpidem Low 10/05/2020 Other reaction(s): Confusion documented as of this encounter (statuses as of 01/01/2024) Medications Medication Sig Dispensed Refills Start Date End Date Status venlafaxine XR (EFFEXOR XR) 150 MG [id number]:De pression Take 1 Cap by mouth daily. With food. 30 Cap 5 09/02/19 17 Active Additional Information Patient taking differently: 225 mgOral Daily(AM),Taking a total of 225 mg, Indications: Takes 225 mg total every morning with food (150 mg tab + 75 mg tab), Reported on 03/03/2023 Blood Glucose Monitoring Suppl (D-obiwon GLUCOMETER) w/Device KITIndications:Unc ontrolled type 2 diabetes mellitus without complication, without long-term current use of insulin Use as directed. Use as directed once daily 1 Kit 11/19/19 18 Active Blood Glucose Monitoring Suppl (AnalytiCon Discovery VERIO) w/Device KIT Use as directed. Use as directed. 1 Kit 11/01/19 19 Active Spacer/Aero-Holdin g Chambers WISAM Use with inhaler. Wheezing/bronchit is. 1 Device 04/08/20 19 Active Lancet Devices (AnalytiCon Discovery DELICA LANCING DEV) MISC Use four times [...] 06/25/23. 1 Each 1 06/24/20 23 Active Torsemide 20 MG Oral Tablet (Demadex)Indicatio ns:Atherosclerotic heart disease of [place] coronary artery with other forms of angina pectoris (HCC),Hypertensive heart disease with chronic diastolic congestive heart failure (HCC) TAKE 1 TABLET BY MOUTH EVERY MORNING. MAY TAKE 1 ADDITIONAL TABLET NEEDED FOR SWELLING. 90 Tablet 3 07/08/19 24 Active Xifaxan 550 MG Oral Tablet [...] blood sugar 3 times daily 300 Strip 07/21/19 24 Active OneTouch Delica Lancets 33G [...] 25 Tablet 5 10/16/19 24 Active Nystatin 177946 UNIT/GM External Powder (Nystop)Indication s:Candidal intertrigo Apply topically to affected area 3 times a day. Apply to right breast until rash resolved. 30 g 10/16/19 24 Active Nystatin 781005 UNIT/ML Mouth/Throat Suspension SWISH AND SWALLOW 5ML [...] 24 Active Vitamin D (Ergocalciferol) 1.25 MG (09574 UT) Oral Capsule (Drisdol)Indicatio ns:Vitamin D deficiency [...] TORSEMIDE 90 Tablet 1 12/19/19 24 Active Trulicity 4.5 MG/0.5ML Subcutaneous Solution Pen-injector (Dulaglutide) inject 4.5mg under the skin once per week 6 mL 1 09/08/19 24 024 Discontinued(Me dication/Dose Changed) Nitrofurantoin Monohyd Macro 100 MG Oral Capsule (Macrobid) Take 1 Capsule by mouth in the morning and 1 Capsule before bedtime. With food.. 60 Capsule 11/07/19 24 024 Discontinued documented as of this [...] mg daily Coronary artery disease invo lving [place] coronary artery of [place] heart without angina pectoris 11/15/2021 Last Assessment & Plan: Stable. No angina -continue toprol, ASA and statin Seasonal allergies 11/15/2021 Recurrent UTI 10/07/2021 Last Assessment & Plan: Followed by urology Pt is supposed to be on methenamine--will need to clarify with dgt that she is giving this. 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 (Household - for [...] Telephone Encounter - Amie Castaneda LPN - 12/26/2023 10:19 AM EDT Trish hayden from [facility] insurance Prior Authorization for Xifaxin has been approved Time frame of approval is: open ended Information will be faxed to the office at [phone]. * Telephone Encounter - Pinky Perry LPN - 12/24/2023 8:32 AM EDT Prior auth started for Xifaxan with [employer] EOC # [id number] * Telephone Encounter - Raimundo Espinoza MED ASSIST - 12/23/2023 10:05 AM EDT Received paper from [facility] for diagnosis and signature. Placed paper on providers desk documented in this encounter Plan of Treatment Upcoming Encounters Date Type Department Care Team (Late st Contact Info) Description 01/05/2024 2:00 PM EDT [facility] Visit [facility] [place], [facility] [address] [address] Connie Mccullough RN [address] [place] [address] 01/16/2024 9:45 AM EDT Office Visit Urology Kimberly Harmon [address] [place] [address] [place] [address] Alfredo Panda MD [address] [place] [address] 01/26/2024 3:45 PM EDT Procedure Only Urology, [facility] [address] [address] Alfredo Panda MD [address] [place] [address] 02/09/2024 9:00 AM EDT [facility] Visit [facility] [address] [address] Kirby Valenzuela PA-C [address] [place] [address] 03/02/2024 4:00 PM EDT Imaging Radiology, [facility] [address] [facility] [place] [address] 06/08/2024 6:00 PM EST Office Visit [facility] [address] [place] [address] Brian Domínguez MD [address] [place] [address] Scheduled Procedures Name Priority Associated Diagnoses Date/Ti [...] 06/10/2021, 08/29/2020, 08/01/2020 CKD PHOS USE SMARTSET 96347 10/24/202310/05, 02/18/2022, 02/17/2022, Additional history exists GFR 04/21/2024 10/21/2023, 07/08, 06/17/2023, Additional history exists Colonoscopy 05/20/2024 05/20/2014 Colorectal Cancer Screening 05/20/2024 HbA1c 06/11/2024 12/11/2023, 06/06, 10/23/2022, Additional history exists TSH 06/17/2024 06/17/2023, 05/08, 02/13/2023, Additional history exists Diabetic Foot Exam 10/15/2024 10/16/2023, 1 07/22/2019, 02/22/2019, Additional history exists Albumin/Creatinine Ratio 11/03/2024 024, 10/23/2022, 07/17/2022, Additional history exists CKD HGB USE SMARTSET 00077 12/10/202412/10, 08/04/2023, 08/04/2023, Additional history exists O2 [...] encounter Medical Devices Implanted Type Area Supervisor Cytology Device Identifier Shelf Expiration Date Model / Serial / Lot Sut Steel 6 M654g - [id number] Implanted:Qty: 3 on 02/15/2011 at OR [facility] N/A: Chest DO NOT USE 01/15/2015 M654G / / [id number] [employer] 225-241 - [id number] Implanted:Qty: 1 on 02/15/2011 at OR [facility] N/A: Chest [employer] 225-241 / / [id number] Sut Steel 6 M654g - [id number] Implanted:Qty: 1 on 02/15/2011 at OR [facility] N/A: Chest DO NOT USE 07/21/2015 M654G / / [id number] documented as of this encounter Advance Directives Documents on File Type Date Recorded Patient Sales Administration Specialist Expl anation POLST 05/06/2018 POLST * Full [...] Child Health Care Agent Care Teams Clinical Informatics Strategist Relationship Specialty Start Date End Date Brian Domínguez MD [address] [place] [address] PCP - General Family Medicine 07/16/17 documented as of this encounter
--- OUTSIDE RECORDS SUMMARY | 2024-03-03 08:13 | External Medical Summary | Summary of Care ---
Author Name Unknown Organization [facility] Address [address] [place] [address] Phone [phone] Care Team Providers Care Community Living Specialist Name Role Phone Brian Domínguez MD Primary Care Provider +1- [phone] Reason for Visit * Reason Onset Date Comments Post-Op 01/01/2024 Advice 01/01/2024 Encounter Details Date Type Department Care Team (Late st Contact Info) Description 01/01/2024 Telephone [facility], [place] [address] [facility] *DO NOT REMOVE THIS DEPARTMENT* [place] [address] Services, Scheduling [address] [place] [address] Post-Op; Advice Allergies Active Allergy Reactions Criticality Noted Date Comments Propoxyphene Hcl Rash Low 10/29/2010 Fentanyl Diarrhea Low 04/26/2010 anxiety Methocarbamol Medium 10/05/2020 Other reaction(s): Delirium Methocarbamol Low 04/15/2007 Zolpidem Low 10/05/2020 Other reaction(s): Confusion documented as of this encounter (statuses as of 01/01/2024) Medications Medication Sig Dispensed Refills Start Date End Date Status venlafaxine XR (EFFEXOR XR) 150 MG BR80Cdnylgrhmyi:Dep ression Take 1 Cap by mouth daily. [...] Kit 11/18/2017 Active Blood Glucose Monitoring Suppl (larkTOUCH VERIO) w/Device KIT Use as directed. Use as directed. 1 Kit 10/31/2018 Active Spacer/Aero-Holding Chambers WISAM Use with inhaler. Wheezing/bronchitis . 1 Device 04/08/2019 Active Lancet Devices (larkTOUCH DELICA LANCING DEV) MISC Use four times [...] OTHER MEDICATIONS 90 Tablet 1 09/08/2023 Active Trulicity 4.5 MG/0.5ML Subcutaneous Solution Pen-injector (Dulaglutide) inject 4.5mg under the skin once per week 6 mL 1 09/08/2023 Active Additional Information Patient not taking.Reported on 12/26/2023 PEG 3350 17 GM/SCOOP Oral Powder DISSOLVE [...] minutes 25 Tablet 5 10/16/2023 Active Nystatin 565380 UNIT/GM External Powder (Nystop)Indications :Candidal intertrigo Apply topically to affected area 3 times a day. Apply to right breast until rash resolved. 30 g 10/16/2023 Active Nystatin 594247 UNIT/ML Mouth/Throat Suspension SWISH AND SWALLOW 5ML IN THE MORNING AND 5ML AT NOON AND 5 ML IN THE EVENING AND 5ML BEFORE BEDTIME, FOR THRUSH 240 mL 1 10/16/2023 Active Metoprolol Succinate ER 25 MG Oral Tablet Extended Release 24 Hour (toPROL XL)Indications:HTN, goal below 130/80 TAKE 1 TABLET BY MOUTH EVERY MORNING 90 Tablet 10/25/2023 Active Vitamin D (Ergocalciferol) 1.25 MG (13110 UT) Oral Capsule (Drisdol)Indication s:Vitamin D deficiency [...] a day 200 Each 2 12/23/2023 Active Cefdinir 300 MG Oral Capsule (Omnicef) Take 1 Capsule by mouth in the morning and 1 Capsule before bedtime. Do all this for 10 days. 20 Capsule 12/24/2023 01/03/20 24 Active Additional Information Patient not taking.Reported on 12/24/2023 oxyCODONE-Acetamino phen 5-325 MG Oral Tablet (Percocet) Take 1 Tablet by mouth every 8 hours as needed for Pain, Severe. 8 Tablet 12/31/2023 Active Cefdinir 300 MG Oral Capsule (Omnicef) Take 1 Capsule by mouth in the morning and 1 Capsule before bedtime. 10 Capsule 01/01/2024 Active documented as of this encounter [...] mg daily Coronary artery disease invo lving [place] coronary artery of [place] heart without angina pectoris 11/15/2021 Last Assessment & Plan: Stable. No angina -continue toprol, ASA and statin Seasonal allergies 11/15/2021 Recurrent UTI 10/07/2021 Last Assessment & Plan: Followed by urology Pt is supposed to be on methenamine--will need to clarify with dgt that she is giving this. 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 Patient uses [facility] [place]. Thank you Yudith * Telephone Encounter - [...] op concerns. Please reach out to advise [phone] documented in this encounter Plan of Treatment Upcoming Encounters Date Type Department Care Team (Late st Contact Info) Description 01/05/2024 2:00 PM EDT Home Visit [facility] [place], [facility] [address] [address] Connie Mccullough RN [address] [place] [address] 01/16/2024 9:45 AM EDT Office Visit Urology Kimberly Harmon [address] [facility] [address] [place] [address] Alfredo Panda MD [address] [place] [address] 01/26/2024 3:45 PM EDT Procedure Only Urology, [facility] [address] [address] [address] Alfredo Panda MD [address] [place] [address] 02/09/2024 9:00 AM EDT Home Visit [place] at [place], [facility] [address] [address] Kirby Valenzuela PA-C [address] [place] [address] [address] 03/02/2024 4:00 PM EDT Imaging Radiology, [place] [id number] [facility] [address] 06/08/2024 6:00 PM EST Office Visit Family [facility] [place] [address] [place] [address] Brian Domínguez MD [address] [facility] [place] [id number] Scheduled Procedures Name Priority Associated Diagnoses Date/Ti [...] 06/10/2021, 08/29/2020, 08/01/2020 CKD PHOS USE SMARTSET 60243 10/24/202310/05, 02/18/2022, 02/17/2022, Additional history exists GFR 04/21/2024 10/21/2023, 07/08, 06/17/2023, Additional history exists Colonoscopy 05/20/2024 05/20/2014 Colorectal Cancer Screening 05/20/2024 HbA1c 06/11/2024 12/11/2023, 06/06, 10/23/2022, Additional history exists TSH 06/17/2024 06/17/2023, 05/08, 02/13/2023, Additional history exists Diabetic Foot Exam 10/15/2024 10/16/2023, 1 07/22/2019, 02/22/2019, Additional history exists Albumin/Creatinine Ratio 11/03/2024 024, 10/23/2022, 07/17/2022, Additional history exists CKD HGB USE SMARTSET 11848 12/10/202412/10, 08/04/2023, 08/04/2023, Additional history exists O2 [...] this encounter Medical Devices Implanted Type Area Arcgis Developer Device Identifier Shelf Expiration Date Model / Serial / Lot Sut Steel 6 M654g - [id number] Implanted:Qty: 3 on 02/15/2011 at OR [facility] N/A: Chest DO NOT USE 01/15/2015 M654G / / [id number] [facility] 225-241 - [id number] Implanted:Qty: 1 on 02/15/2011 at OR [facility] N/A: Chest [employer] 225-241 / / [id number] Sut Steel 6 M654g - [id number] Implanted:Qty: 1 on 02/15/2011 at OR [facility] N/A: Chest DO NOT USE 07/21/2015 M654G / / [id number] documented as of this encounter Advance Directives Documents on File Type Date Recorded Patient Behavioral Modification Assistant Expl cheyanneion POL 05/06/2018 POLST * Full [...] Child Health Care Agent Care Teams Community Living Specialist Relationship Specialty Start Date End Date Brian Domínguez MD [address] [place] [facility] [place] [address] PCP - General Family Medicine 07/16/17 documented as of this encounter
--- OUTSIDE RECORDS SUMMARY | 2024-03-03 08:13 | External Medical Summary | Summary of Care ---
Author Name Unknown Organization [facility] Address [address] [facility] [place] [address] Phone [phone] Care Team Providers Care Section Hand Name Role Phone Carmen Sifuentes MD Primary Care Provider +1- [phone] Reason for Visit * Reason Onset Date Comments [facility]: Maintenance 01/01/2024 Encounter Details Date Type Department Care Team (Late st Contact Info) Description 01/01/2024 Telephone [facility], [facility] [address] [facility] [place] [address] [facility], Nurse [facility] [address] [facility] [place] [address] [facility]: Maintenance Allergies Active Allergy Reactions Criticality Noted Date Comments Propoxyphene Hcl Rash Low 10/29/2010 Fentanyl Diarrhea Low 04/26/2010 anxiety Methocarbamol Medium 10/05/2020 Other reaction(s): Delirium Methocarbamol Low 04/15/2007 Zolpidem Low 10/05/2020 Other reaction(s): Confusion documented as of this encounter (statuses as of 01/02/2024) Medications Medication Sig Dispensed Refills Start Date End Date Status venlafaxine XR (EFFEXOR XR) 150 MG [id number]:Dep ression Take 1 Cap by mouth daily. [...] Kit 8 Active Blood Glucose Monitoring Suppl (ClassDojo VERIO) w/Device KIT Use as directed. Use as directed. 1 Kit 9 Active Spacer/Aero-Holding Chambers WISAM Use with inhaler. Wheezing/bronchiti s. 1 Device 9 Active Lancet Devices (GroupTieTOUCH DELICA LANCING DEV) MISC Use four times [...] Oral Tablet (Demadex)Indication s:Atherosclerotic heart disease of [place] coronary artery with other forms of angina [...] minutes 25 Tablet 5 4 Active Nystatin 130186 UNIT/GM External Powder (Nystop)Indications :Candidal intertrigo Apply topically to affected area 3 times a day. Apply to right breast until rash resolved. 30 g 4 Active Nystatin 872843 UNIT/ML Mouth/Throat Suspension SWISH AND SWALLOW 5ML IN THE MORNING AND 5ML AT NOON AND 5 ML IN THE EVENING AND 5ML BEFORE BEDTIME, FOR THRUSH 240 mL 1 4 Active Metoprolol Succinate ER 25 MG Oral Tablet Extended Release 24 Hour (toPROL XL)Indications:HTN, goal below 130/80 TAKE 1 TABLET BY MOUTH EVERY MORNING 90 Tablet 4 Active Vitamin D (Ergocalciferol) 1.25 MG (40131 UT) Oral Capsule (Drisdol)Indication s:Vitamin D deficiency [...] as of this encounter (statuses as of 01/02/2024) Active Problems Problem Noted Date Diagnosed Date [...] mg daily Coronary artery disease invo lving [place] coronary artery of [place] heart without angina pectoris 11/15/2021 Last Assessment & Plan: Stable. No angina -continue toprol, ASA and statin Seasonal allergies 11/15/2021 Recurrent UTI 10/07/2021 Last Assessment & Plan: Followed by urology Pt is supposed to be on methenamine--will need to clarify with dgt that she is giving this. Pt also to see uro-help desk intern and ID Type 2 diabetes mellitus [...] 01/16/22 Moderate aortic stenosis 05/06/2018 Anxiety 08/05/2017 Dtgtkes-Fgahr-Chbqn disease 06/27/2015 Last Assessment & Plan: Frequent [...] as of this encounter (statuses as of 01/02/2024) Resolved Problems Problem Noted Date Diagnosed Date [...] liver 05/06/2018 Atherosclerotic heart diseas e of [place] coronary artery with other forms of angina [...] stenosis 10/31/2010 08/28/2018 Acute coronary syndrome 10/30/201001/04 MOBILE Research Other*[id number] 02/02/2010 04/18/2014 Overview: [place] Registry, Dr Joel CASAS Obesity, morbid (more [...] as of this encounter (statuses as of 01/02/2024) Immunizations Name Administration Dates Next Due COVID-19 [...] encounter Miscellaneous Notes * Telephone Encounter - Amberly Cherry LPN - 01/02/2024 8:25 AM EDT Attempted to call patients daughter back, no answer lm that I was calling in regards to patient andthat I would send a Categorical message as well. * Addendum Note - [...] Description 01/05/2024 2:00 PM EDT Home Visit [facility] [address] [place] [address] Connie Mccullough RN [address] [place] [address] 01/16/2024 9:45 AM EDT Office Visit Urology Kimberly Harmon [address] [facility] [address] [place] [address] Alfredo Panda MD [address] [place] [address] 01/26/2024 3:45 PM EDT Procedure Only Urology, [facility] [address] [place] [address] Alfredo Panda MD [address] [place] [address] 02/09/2024 9:00 AM EDT Home Visit [facility] [place] [address] [place] [address] Kirby Valenzuela PA-C [address] [place] [address] 03/02/2024 4:00 PM EDT Imaging Radiology, [place] [id number] [facility] [address] 06/08/2024 6:00 PM EST Office Visit [facility] [address] [place] [address] Carmen Sifuentes MD [address] [place] [address] Scheduled Procedures Name Priority Associated Diagnoses Date/Ti [...] 06/10/2021, 08/29/2020, 08/01/2020 CKD PHOS USE SMARTSET 03416 10/24/202310/05, 02/18/2022, 02/17/2022, Additional history exists GFR 04/21/2024 10/21/2023, 07/08, 06/17/2023, Additional history exists Colonoscopy 05/20/2024 05/20/2014 Colorectal Cancer Screening 05/20/2024 HbA1c 06/11/2024 12/11/2023, 06/06, 10/23/2022, Additional history exists TSH 06/17/2024 06/17/2023, 05/08, 02/13/2023, Additional history exists Diabetic Foot Exam 10/15/2024 10/16/2023, 1 07/22/2019, 02/22/2019, Additional history exists Albumin/Creatinine Ratio 11/03/2024 024, 10/23/2022, 07/17/2022, Additional history exists CKD HGB USE SMARTSET 86341 12/10/202412/10, 08/04/2023, 08/04/2023, Additional history exists O2 [...] encounter Medical Devices Implanted Type Area Registered Occupational Therapist Device Identifier Shelf Expiration Date Model / Serial / Lot Sut Steel 6 M654g - [id number] Implanted:Qty: 3 on 02/15/2011 at OR [facility] N/A: Chest DO NOT USE 01/15/2015 M654G / / [id number] [facility] 225-241 - [id number] Implanted:Qty: 1 on 02/15/2011 at OR [facility] N/A: Chest [employer] 225-241 / / [id number] Sut Steel 6 M654g - [id number] Implanted:Qty: 1 on 02/15/2011 at OR [facility] N/A: Chest DO NOT USE 07/21/2015 M654G / / [id number] documented as of this encounter Visit Diagnoses Diagnosis Type 2 diabetes mellitus with diabetic neuropathy, with long-term current use of insulin (HCC)- Primary documented in this encounter Advance Directives Documents on File Type Date Recorded Patient Registered Nursing Professor Expl anatarmida POL 05/06/2018 POLST * Full Code (Latest [...] Adult Child Health Care Agent Care Teams Section Hand Relationship Specialty Start Date End Date Carmen Sifuentes MD [address] [place] [facility] [place] [address] PCP - General Family Medicine 07/16/17 documented as of this encounter
--- OUTSIDE RECORDS SUMMARY | 2024-03-03 08:14 | External Medical Summary ---
Author Name Unknown Address Unknown Organization : Laboratory Report Ordering Provider Test Date Status DAIANA SAINI 12/31/2023 14:45:29 Final Observation Date Value Abnormality Reference (Units ) Status Glucose Point of Care 12/31/2023 14:45:29 132 Above high normal 70-120 (mg/dL) Final Performing Location
--- OUTSIDE RECORDS SUMMARY | 2024-03-03 08:14 | External Medical Summary | Summary of Care ---
Author Name Unknown Organization [facility] Address [address] [place] [address] Phone [phone] Care Team Providers Care Cad Cam Programmer Name Role Phone Brian Domínguez MD Primary Care Provider +1- [phone] Reason for Visit * Reason Onset Date Comments Advice 10/01/2023 Encounter Details Date Type Department Care Team (Late st Contact Info) Description 10/01/2023 Telephone Urology Kimberly Harmon [address] [place] [address] Alfredo Panda MD [address] [place] [id number] Advice Allergies Active Allergy Reactions Criticality Noted Date Comments Propoxyphene Hcl Rash Low 10/29/2010 Fentanyl Diarrhea Low 04/26/2010 anxiety Methocarbamol Medium 10/05/2020 Other reaction(s): Delirium Methocarbamol Low 04/15/2007 Zolpidem Low 10/05/2020 Other reaction(s): Confusion documented as of this encounter (statuses as of 12/31/2023) Medications Medication Sig Dispensed Refills Start Date End Date Status venlafaxine XR (EFFEXOR XR) 150 MG [id number]:De pression Take 1 Cap by mouth daily. [...] Kit 8 Active Blood Glucose Monitoring Suppl (SIZESEEKER VERIO) w/Device KIT Use as directed. Use as directed. 1 Kit 9 Active Spacer/Aero-Holdin g Chambers WISAM Use with inhaler. Wheezing/bronch itis. 1 Device 9 Active Lancet Devices (Zenith EpigeneticsTOUCH DELICA LANCING DEV) MISC Use four times [...] Oral Tablet (Demadex)Indicatio ns:Atherosclerotic heart disease of [place] coronary artery [...] insulin ([facility]) use to test blood sugar 3 times [...] OTHER MEDICATIONS 90 Tablet 1 4 Active Trulicity 4.5 MG/0.5ML Subcutaneous Solution Pen-injector (Dulaglutide) inject 4.5mg under the skin once per week 6 mL 1 4 Active Additional Information Patient not taking.Reported on 12/26/2023 PEG 3350 17 GM/SCOOP Oral Powder DISSOLVE ONE HEAPING TABLESPOON IN 8 OZ OF WATER OR JUICE DAILY NEEDED FOR CONSTIPATION. 510 g 5 4 Active ARIPiprazole (ABILIFY) 2 MG Tablet [...] Solostar 100 UNIT/ML Subcutaneous Solution Pen-injector (Basaglar [place])Indication s:Type 2 diabetes mellitus with diabetic neuropathy, with long-term current use of insulin (HCC) Inject 30 units under the skin twice daily 45 mL 3 2 024 Discontinued(Jean-Pierre glover preference/disc ontinuation) Spiriva Respimat 2.5 MCG/ACT Inhalation Aerosol Solution (Tiotropium Sherrill Monohydrate) Inhale by mouth 2 Puffs in the morning. 4 g 3 2 024 Discontinued(Il dication List Clean Up) UltiCare Pen [place] 31G X 5 MM (Insulin Pen Needle) use TWICE DAILY 200 Each 3 3 024 Discontinued Spironolactone 50 MG Oral Tablet (Aldactone)Indicat ions:GONZALEZ (nonalcoholic steatohepatitis),P ortal hypertension (HCC),Chronic liver disease and cirrhosis (HCC),Portal hypertensive gastropathy (HCC) Take 1 tablet by mouth in the morning and before bedtime 180 Tablet 3 3 024 Discontinued Sucralfate 1 GM Oral Tablet (Carafate)Indicati ons:Gastroesophage al reflux disease with esophagitis without hemorrhage TAKE 1 TABLET BY MOUTH EVERY MORNING 90 Tablet 3 024 Discontinued(Jean-Pierre glover preference/disc ontinuation) Nystatin 397852 UNIT/ML Mouth/Throat Suspension SWISH AND SWALLOW 5ML [...] 90 Tablet 1 3 024 Discontinued Nystatin 529650 UNIT/GM External Powder (Nystop)Indication s:Candidal intertrigo Apply [...] 024 Discontinued Vitamin D (Ergocalciferol) 1.25 MG (72761 UT) Oral Capsule (Drisdol)Indicatio ns:Vitamin D deficiency [...] for 2 days 30 Tablet 4 024 Discontinued(Il dication List Clean Up) Gabapentin 300 MG Oral Capsule (Neurontin)Indicat ions:Lumbar spondylosis TAKE 1 CAPSULE BY MOUTH TWICE DAILY 60 Capsule 1 4 024 Discontinued Insulin Glargine Solostar 100 UNIT/ML Subcutaneous Solution Pen-injector (Basaglar KwikPen) Inject 20 Units under the skin 2 times a day. 45 mL 1 4 024 Discontinued(Pa tient preference/disc ontinuation) Sulfamethoxazole-T rimethoprim 400-80 MG Oral Tablet (Bactrim) Take 1 Tablet by mouth daily. Do not start before August 31, 2023. 30 Tablet 5 4 024 Discontinued(Pa tient preference/disc ontinuation) clonazePAM 0.5 MG Oral Tablet (KlonoPIN)Indicati ons:Bipolar I disorder, most recent episode depressed, moderate (HCC) TAKE ONE TABLET BY MOUTH THREE TIMES DAILY 90 Tablet 4 024 Discontinued(Re fill) documented as of this encounter (statuses as of 12/31/2023) Active Problems Problem Noted Date Diagnosed Date [...] mg daily Coronary artery disease invo lving [place] coronary artery of [place] heart without angina pectoris 11/15/2021 Last Assessment & Plan: Stable. No angina -continue toprol, ASA and statin Seasonal allergies 11/15/2021 Recurrent UTI 10/07/2021 Last Assessment & Plan: Followed by urology Pt is supposed to be on methenamine--will need to clarify with dgt that she is giving this. Pt also to see uro-sewing trimmer and ID Type 2 diabetes mellitus wit [...] 01/16/22 Moderate aortic stenosis 05/06/2018 Anxiety 08/05/2017 Xvlwuqb-Msker-Vavji disease 06/27/2015 Last Assessment & Plan: Frequent [...] as of this encounter (statuses as of 12/31/2023) Resolved Problems Problem Noted Date Diagnosed Date [...] liver 05/06/2018 Atherosclerotic heart diseas e of [place] [...] stenosis 10/31/2010 08/28/2018 Acute coronary syndrome 10/30/201001/04 [employer] Research Other*[id number] 02/02/2010 04/18/2014 Overview: [place] Registry, Dr Joel CASAS Obesity, morbid (more [...] long term care phlebotomist current use of ant icoagulant therapy 06/17/2006 [...] as of this encounter (statuses as of 12/31/2023) Immunizations Name Administration Dates Next Due COVID-19 [...] 11/24/2023 Does the household have a [facility] psychiatric center[facility] source of income? (Household - [...] Miscellaneous Notes * Telephone Encounter - Liz Gatica MED ASSIST - 10/06/2023 3:59 PM EDT Appt scheduled and patient aware * Telephone Encounter - Fani Starr LPN - 10/03/2023 8:23 AM EDT Patient willing to schedule sooner appt with Feli, please call to arrange. * Telephone Encounter - Alfredo Panda MD - 10/02/2023 4:34 PM EDT Keep visit as scheduled. Can be placed on wait list or on PA schedule if patient wishes to be seen sooner. Thx, HM * Telephone Encounter - Hue Coates LPN - 10/01/2023 2:[address] Panda Please advise if this patient needs to be squeezed in. Thank you Yudith * Telephone Encounter - Valorie Colmenares OSA - 10/01/2023 2:08 PM EDT Please advise if pt should be seen sooner. Thanks! * Telephone Encounter - Lashay Tompkins OSA - 10/01/2023 12:44 PM EDT Patient's infectious disease provider told patient to get back in to see Dr Panda sheela. Scheduled first available appt for 04/07/24. documented in this encounter Plan of Treatment Upcoming Encounters Date Type Department Care Team (Late st Contact Info) Description 01/05/2024 2:00 PM EDT Home Visit [facility] [address] [place] [address] Connie Mccullough, RN [address] [place] [address] 01/16/2024 9:45 AM EDT Office Visit Urology Kimberly Harmon [address] [place] [address] Alfredo Panda MD [address] [place] [address] 01/26/2024 3:45 PM EDT Procedure Only Urology, [facility] [address] [facility] [place] [address] Alfredo Panda MD [address] [place] [address] 02/09/2024 9:00 AM EDT Home Visit [facility] [address] [facility] [place] [address] Kirby Valenzuela PA-C [address] [facility] [place] [address] 03/02/2024 4:00 PM EDT Imaging Radiology, [address] [place] [address] 06/08/2024 6:00 PM EST Office Visit [facility] [address] [place] [address] Brian Domínguez MD [address] [place] [address] Scheduled Procedures Name Priority Associated Diagnoses Date/Ti me CYSTOSTOMY WITH DRAINAGE OF BLADDER Urge incontinence 12/31/2023 2:33 PM EDT COLONOSCOPY FLEXIBLE PROXIMAL DIAGNOSTIC Recall Special screening for malignant neoplasms, [...] 06/10/2021, 08/29/2020, 08/01/2020 CKD PHOS USE SMARTSET 23837 10/24/202310/05, 02/18/2022, 02/17/2022, Additional history exists GFR 04/21/2024 10/21/2023, 07/08, 06/17/2023, Additional history exists Colonoscopy 05/20/2024 05/20/2014 Colorectal Cancer Screening 05/20/2024 HbA1c 06/11/2024 12/11/2023, 06/06, 10/23/2022, Additional history exists TSH 06/17/2024 06/17/2023, 05/08, 02/13/2023, Additional history exists Diabetic Foot Exam 10/15/2024 10/16/2023, 1 07/22/2019, 02/22/2019, Additional history exists Albumin/Creatinine Ratio 11/03/2024 024, 10/23/2022, 07/17/2022, Additional history exists CKD HGB USE SMARTSET 21054 12/10/202412/10, 08/04/2023, 08/04/2023, Additional history exists O2 [...] this encounter Medical Devices Implanted Type Area Trimmer Press Clippings Device Identifier Shelf Expiration Date Model / Serial / Lot Sut Steel 6 M654g - [id number] Implanted:Qty: 3 on 02/15/2011 at OR [facility] N/A: Chest DO NOT USE 01/15/2015 M654G / / [id number] [employer] 225-241 - [id number] Implanted:Qty: 1 on 02/15/2011 at OR [facility] N/A: Chest [employer] 225-241 / / [id number] Sut Steel 6 M654g - [id number] Implanted:Qty: 1 on 02/15/2011 at OR [facility] N/A: Chest DO NOT USE 07/21/2015 M654G / / [id number] documented as of this encounter Advance Directives Documents on File Type Date Recorded Patient Oracle Forms Developer Expl anation POL 05/06/2018 POLST * Full Code (Latest Code Status on File) Date Activated Date Inactivated Comments 12/31/2023 4:12 PM This order ref lects the patients wishes and were consensually agreed [...] Agents on File Name Relationship Healthcare Agent [facility] Communication Carolyn Ballard Adult Child Health Care Agent Care Teams Cad Cam Programmer Relationship Specialty Start Date End Date Brian Domínguez MD [address] [place] [address] PCP - General Family Medicine 07/16/17 documented as of this encounter
--- OUTSIDE RECORDS SUMMARY | 2024-03-03 08:14 | External Medical Summary | Summary of Care ---
Author Name Unknown Organization [facility] Address [address] [place] [address] Phone [phone] Care Team Providers Care Glass Cleaner Name Role Phone Brian Domínguez MD Primary Care Provider [phone]- [phone] Reason for Visit * Reason Onset Date Comments Other 12/26/2023 Encounter Details Date Type Department Care Team (Late st Contact Info) Description 12/26/2023 Telephone Pre Surgery Center, [facility] [address] [facility] [place] [address] Alfredo Panda MD [address] [address] Other Allergies Active Allergy Reactions Criticality Noted Date Comments Propoxyphene Hcl Rash Low 10/29/2010 Fentanyl Diarrhea Low 04/26/2010 anxiety Methocarbamol Medium 10/05/2020 Other reaction(s): Delirium Methocarbamol Low 04/15/2007 Zolpidem Low 10/05/2020 Other reaction(s): Confusion documented as of this encounter (statuses as of 12/30/2023) Medications Medication Sig Dispensed Refills Start Date End Date Status venlafaxine XR (EFFEXOR XR) 150 MG [id number]:Dep ression Take 1 Cap by mouth daily. [...] Kit 11/18/2017 Active Blood Glucose Monitoring Suppl (ZorapTOUCH VERIO) w/Device KIT Use as directed. Use [...] INSTRUCTIONS Please arrange for as needed Home half-way visit for obtaining straight cath urine sample for 06/25/23. 1 Each 1 06/24/2023 Active Torsemide 20 MG Oral Tablet (Demadex)Indication s:Atherosclerotic heart disease of [place] coronary artery with other forms of [...] minutes 25 Tablet 5 10/16/2023 Active Nystatin 031298 UNIT/GM External Powder (Nystop)Indications :Candidal intertrigo Apply topically to affected area 3 times a day. Apply to right breast until rash resolved. 30 g 10/16/2023 Active Nystatin 921727 UNIT/ML Mouth/Throat Suspension SWISH AND SWALLOW 5ML IN THE MORNING AND 5ML AT NOON AND 5 ML IN THE EVENING AND 5ML BEFORE BEDTIME, FOR THRUSH 240 mL 1 10/16/2023 Active Metoprolol Succinate ER 25 MG Oral Tablet Extended Release 24 Hour (toPROL XL)Indications:HTN, goal below 130/80 TAKE 1 TABLET BY MOUTH EVERY MORNING 90 Tablet 10/25/2023 Active Vitamin D (Ergocalciferol) 1.25 MG (93247 UT) Oral Capsule (Drisdol)Indication s:Vitamin D deficiency [...] as of this encounter (statuses as of 12/30/2023) Active Problems Problem Noted Date Diagnosed Date [...] mg daily Coronary artery disease invo lving [place] coronary artery of [place] heart without angina pectoris 11/15/2021 Last Assessment & Plan: Stable. No angina -continue toprol, ASA and statin Seasonal allergies 11/15/2021 Recurrent UTI 10/07/2021 Last Assessment & Plan: Followed by urology Pt is supposed to be on methenamine--will need to clarify with dgt that she is giving this. Pt also to see uro-chummer and ID Type 2 diabetes mellitus wit [...] drugs Pelvic pain 03/27/2021 Urge incontinence 03/27/2021 half-way (current) use of [...] 01/16/22 Moderate aortic stenosis 05/06/2018 Anxiety 08/05/2017 Guetipu-Cfjvu-Lgjxg disease 06/27/2015 Last Assessment & Plan: Frequent [...] as of this encounter (statuses as of 12/30/2023) Resolved Problems Problem Noted Date Diagnosed Date [...] liver 05/06/2018 Atherosclerotic heart diseas e of [place] coronary artery with other forms of [...] stenosis 10/31/2010 08/28/2018 Acute coronary syndrome 10/30/201001/04 [employer] Research Other*[id number] 02/02/2010 04/18/2014 Overview: [facility] Registry, Dr Joel [...] Duplicate Protocol #2. 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/2014 joint terminal attack controller current use of ant icoagulant therapy 06/17/2006 [...] as of this encounter (statuses as of 12/30/2023) Immunizations Name Administration Dates Next Due COVID-19 [...] Miscellaneous Notes * Telephone Encounter - Liz Ruiz CMA - 12/30/2023 4:26 PM EDT See ECHO review by Cardiology Tony Esparza PA-C 12/29/2023 8:21 PM EDT [facility] with mild aortic valve stenosis; findings are stable when compared to prior Chart reviewed. Recommend routine cardiology follow-up with Mrs. Brewster JIMMY * Telephone Encounter - Oskar Fuchs RN - 12/26/2023 1:28 PM EDT Study will be read, and results will available in the chart by mid afternoon on 12/28. Oskar Fuchs RN Cardiac Studies Nurse * Telephone Encounter - Deonna Pride RN - 12/26/2023 11:[address] Panda, That should be fine for the ECHO on 12/28 as long as results are back for Cardiology to review! I'llinclude Dr. Sims in this TE as well. * Telephone Encounter - Alfredo Panda MD - 12/26/2023 11:33 AM EDT Noted. We can check if Dr. Sims satisfied with the date of December 28 or if we should push back her intervention. Thanks, * Telephone Encounter - Radha Do CMA - 12/26/2023 11:23 AM EDT Echo scheduled for 12/28 at 11am. Pt aware of date, time, location. * Telephone Encounter - Deonna Pride RN - 12/26/2023 10:38 AM EDT Images from the original note were not included. ----- Message ----- From: Deonna Pride RN Sent: 12/26/2023 9:03 AM EDT To: Ramon Sims MD Subject: Cardiology/ECHO This patient is a suprapubic cath placement under [facility] on 12/30 w/ Farzad. Pt has not seen Cardiology since 04/2023. She was supposed to get an ECHO to monitor her aortic stenosis. Her ECHO from 2021 showed mild to moderate . Just wanted to see if you're fine w/ her proceeding w/ surgery next week? Ramon Sims MD Plesce, Marnie L, KAT She should have a repeat TTE prior to her surgery. Can we see if it's possible for her to get one with results before the ? Thanks. Inbox message to anesthesiologist, Dr. Sims, regarding this patient. He would like this patient to have a repeat ECHO prior to her scheduled surgery on 12/31/2023 if your office could reach out to herto set this up. Thanks!!! documented in this encounter Plan of Treatment Upcoming Encounters Date Type Department Care Team (Latest Contact Info) Description 12/31/2023 3:28 PM EDT Hospital Encounter OR [facility], Operating Room, [facility] - 4th Floor [address] [place] [address] Alfredo Panda MD [address] [place] [address] 12/31/2023 3:28 PM EDT - 12/31/2023 4:30 PM EDT Surgery OR [facility], Operating Room, [facility] - 4th Floor [address] [place] [address] Alfredo Panda MD [address] [place] [address] CYSTOSTOMY WITH DRAINAGE OF BLADDER 01/05/2024 2:00 PM EDT [facility] [address] [place] [address] Connie Mccullough RN [address] [place] [address] 01/16/2024 9:45 AM EDT Office Visit Urology Kimberly Harmon [address] [place] [address] Alfredo Panda MD [address] [place] [address] 01/26/2024 3:45 PM EDT Procedure Only Urology, [facility] [address] [place] [address] Alfredo Panda MD [address] [place] [address] 02/09/2024 9:00 AM EDT [facility] [address] [place] [address] Kirby Valenzuela PA-C [address] [place] [address] 03/02/2024 4:00 PM EDT Imaging Radiology, [address], [place] [address] 06/08/2024 6:00 PM EST Office Visit [facility] [address] [facility] [id number] Brian Domínguez MD [address] [place] [facility] [place] [place] [address] Scheduled Procedures Name Priority Associated Diagnoses Date/Ti me CYSTOSTOMY WITH DRAINAGE OF BLADDER Urge incontinence 12/31/2023 3:28 PM EDT COLONOSCOPY FLEXIBLE PROXIMAL DIAGNOSTIC Recall [...] 06/10/2021, 08/29/2020, 08/01/2020 CKD PHOS USE SMARTSET 91294 10/24/202310/05, 02/18/2022, 02/17/2022, Additional history exists GFR 04/21/2024 10/21/2023, 07/08, 06/17/2023, Additional history exists Colonoscopy 05/20/2024 05/20/2014 Colorectal Cancer Screening 05/20/2024 HbA1c 06/11/2024 12/11/2023, 06/06, 10/23/2022, Additional history exists TSH 06/17/2024 06/17/2023, 05/08, 02/13/2023, Additional history exists Diabetic Foot Exam 10/15/2024 10/16/2023, 1 07/22/2019, 02/22/2019, Additional history exists Albumin/Creatinine Ratio 11/03/2024 024, 10/23/2022, 07/17/2022, Additional history exists CKD HGB USE SMARTSET 18452 12/10/202412/10, 08/04/2023, 08/04/2023, Additional history exists O2 ASSESSMENT COMPLETED IN PAST YEAR FOR COPD 12/14/2024 12/15/2023 DTaP,Tdap,and Td Vaccines (2 - Td or [...] encounter Medical Devices Implanted Type Area Digital Advertising Analyst Device Identifier Shelf Expiration Date Model / Serial / Lot Sut Steel 6 M654g - [id number] Implanted:Qty: 3 on 02/15/2011 at OR [facility] [place] N/A: Chest DO NOT USE 01/15/2015 M654G / / [id number] Band Magdy 225-241 - [id number] Implanted:Qty: 1 on 02/15/2011 at OR [facility] N/A: Chest [employer] 225-241 / / [id number] Sut Steel 6 M654g - [id number] Implanted:Qty: 1 on 02/15/2011 at OR [facility] [place] N/A: Chest DO NOT USE 07/21/2015 M654G / / [id number] documented as of this encounter Advance Directives Documents on File Type Date Recorded Patient Director General Jose luna DURAN 05/06/2018 POL * Full Code (Latest Code Status on File) Date Activated Date Inactivated Comments 06/25/2011 3:09 [...] Full Code Date Activated Date Inactivated Comments 10/29/2010 4:36 PM 10/30/2010 7:14 PM This order r eflects the patients wishes and were consensually agreed upon. Question Answer Comments Discussion of Advance Directives occurred with: Not Discussed Does the patient have a Living Will? No Does the patient have Health Care Power of Attor britt? No * Full Code Date Activated Date Inactivated Comments 02/01/2010 4:02 PM 02/02/2010 4:09 PM This order r eflects the patients wishes and were consensually agreed upon. Question Answer Comments Discussion of Advance Directives occurred with: Not Discussed Does the patient have a Living Will? No Does the patient have Health Care Power of Attor britt? No Healthcare Agents on File Name Relationship Healthcare Agent [facility] Communication Carolyn Goldmangerard Adult Child Health Care Agent Care Teams Glass Cleaner Relationship Specialty Start Date End Date Brian Domínguez MD [address] [place] [address] PCP - General Family Medicine 07/16/17 documented as of this encounter
--- OUTSIDE RECORDS SUMMARY | 2024-03-03 08:14 | External Medical Summary | Summary of Care ---
Author Name Unknown Organization [facility] Address [address] [place] [facility] [place] [address] Phone [phone] Care Team Providers Care Miller Rod Mill Name Role Phone Brian Domínguez MD Primary Care Provider +1- [phone] Encounter Details Date Type Department Care Team (Late st Contact Info) Description 12/29/2023 Telephone Urology, [facility] [address] [facility] [place] [address] Alfredo Panda MD [address] [facility] [address] [place] [address] Allergies Active Allergy Reactions Criticality Noted Date Comments Propoxyphene Hcl Rash Low 10/29/2010 Fentanyl Diarrhea Low 04/26/2010 anxiety Methocarbamol Medium 10/05/2020 Other reaction(s): Delirium Methocarbamol Low 04/15/2007 Zolpidem Low 10/05/2020 Other reaction(s): Confusion documented as of this encounter (statuses as of 12/30/2023) Medications Medication Sig Dispensed Refills Start Date End Date Status venlafaxine XR (EFFEXOR XR) 150 MG [id number]:Dep ression Take 1 Cap by mouth daily. [...] Kit 11/18/2017 Active Blood Glucose Monitoring Suppl (Path LogicUCH VERIO) w/Device KIT Use as directed. Use as directed. 1 Kit 10/31/2018 Active Spacer/Aero-Holding Chambers WISAM Use with inhaler. Wheezing/bronchitis . 1 Device 04/08/2019 Active Lancet Devices (WorkSnugTOUCH DELICA LANCING DEV) MISC Use four times [...] Oral Tablet (Demadex)Indication s:Atherosclerotic heart disease of [place] coronary artery with other forms of [...] minutes 25 Tablet 5 10/16/2023 Active Nystatin 238913 UNIT/GM External Powder (Nystop)Indications :Candidal intertrigo Apply topically to affected area 3 times a day. Apply to right breast until rash resolved. 30 g 10/16/2023 Active Nystatin 680076 UNIT/ML Mouth/Throat Suspension SWISH AND SWALLOW 5ML IN THE MORNING AND 5ML AT NOON AND 5 ML IN THE EVENING AND 5ML BEFORE BEDTIME, FOR THRUSH 240 mL 1 10/16/2023 Active Metoprolol Succinate ER 25 MG Oral Tablet Extended Release 24 Hour (toPROL XL)Indications:HTN, goal below 130/80 TAKE 1 TABLET BY MOUTH EVERY MORNING 90 Tablet 10/25/2023 Active Vitamin D (Ergocalciferol) 1.25 MG (17883 UT) Oral Capsule (Drisdol)Indication s:Vitamin D deficiency [...] Additional Information Patient not taking.Reported on 12/24/2023 Sulfamethoxazole-Tr imethoprim 800-160 MG Oral Tablet (Bactrim DS) Take 1 Tablet by mouth in the morning and 1 Tablet before bedtime. Use as directed.. 14 Tablet 12/29/2023 Active documented as of this encounter (statuses [...] mg daily Coronary artery disease invo lving [place] coronary artery of [place] heart without angina pectoris 11/15/2021 Last Assessment & Plan: Stable. No angina -continue toprol, ASA and statin Seasonal allergies 11/15/2021 Recurrent UTI 10/07/2021 Last Assessment & Plan: Followed by urology Pt is supposed to be on methenamine--will need to clarify with dgt that she is giving this. 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/2015 Last Assessment & Plan: Frequent [...] liver 05/06/2018 Atherosclerotic heart diseas e of [place] coronary artery with other forms of [...] 02/04/2012 07/19/2014 Cellulitis of left foot 02/04/2012 12/2 08/2014 Sundowning 02/04/2012 07/19/2014 S/P CABG x 1 07/17/2011 08/19/2012 ASCVD (arteriosclerotic card iovascular disease) 07/17/2011 09/07/2018 Elevated liver enzymes 06/25/201106/27 Unstable angina 02/12/2011 01/21/2014 Recurrent In-stent stenosis 10/31/2010 08/28/2018 Acute coronary syndrome 10/30/201001/04 [place] Research Other*[id number] 02/02/2010 04/18/2014 Overview: [place] Registry, Dr Joel Kwon PI Obesity, morbid [...] Telephone Encounter - Hue Coates LPN - 12/30/2023 2:58 PM EDT Spoke with Angelina's daughter. She has been taking cefdinir since 12/23, asking if they need to switchto bactrim. Spoke with Dr Panda, ok to remain on cefdinir. Spoke with Carolny, patient's daughter, aware to remain on cefdinir. * Telephone Encounter - Hue Coates LPN - 12/29/2023 9:13 AM EDT Left detailed message on pt's daughter's identified voicemail. * Telephone Encounter - Alfredo Panda MD - 12/29/2023 7:31 AM EDT Patient is scheduled for upcoming surgery on Friday, positive preoperative urine culture was noted. Prescription for Bactrim provided for perioperative coverage, can start today. Thanks, HM documented in this encounter Plan of Treatment Upcoming Encounters Date Type Department Care Team (Latest Contact Info) Description 12/31/2023 3:28 PM EDT Hospital Encounter OR [facility], Operating Room, [facility] - 4th Floor [address] [place] [address] Alfredo Panda MD [address] [place] [address] 12/31/2023 3:28 PM EDT - 12/31/2023 4:30 PM EDT Surgery OR [facility], Operating Room, [facility] - 4th Floor [address] [place] [address] Alfredo Panda MD [address] [place] [address] CYSTOSTOMY WITH DRAINAGE OF BLADDER 01/05/2024 2:00 PM EDT [facility] [address] [place] [address] Cnonie Mccullough, RN [address] [place] [address] 01/16/2024 9:45 AM EDT Office Visit Urology Kimberly Harmon [address] [place] [address] Alfredo Panda MD [address] [place] [address] 01/26/2024 3:45 PM EDT Procedure Only [facility], [facility] [place] [address] Alfredo Panda MD [address] [place] [address] 02/09/2024 9:00 AM EDT [facility] Visit [facility] [address] [place] [address] Kirby Valenzuela PA-C [facility] [place] [address] 03/02/2024 4:00 PM EDT Imaging Radiology, [address] [place] [address] 06/08/2024 6:00 PM EST [facility] Visit [facility] [address] [facility] [id number] Brian Domínguez MD [address] [place] [facility] [place] [address] Scheduled Procedures Name Priority Associated Diagnoses Date/Ti [...] 06/10/2021, 08/29/2020, 08/01/2020 CKD PHOS USE SMARTSET 78987 10/24/202310/05, 02/18/2022, 02/17/2022, Additional history exists GFR 04/21/2024 10/21/2023, 07/08, 06/17/2023, Additional history exists Colonoscopy 05/20/2024 05/20/2014 Colorectal Cancer Screening 05/20/2024 HbA1c 06/11/2024 12/11/2023, 06/06, 10/23/2022, Additional history exists TSH 06/17/2024 06/17/2023, 05/08, 02/13/2023, Additional history exists Diabetic Foot Exam 10/15/2024 10/16/2023, 1 07/22/2019, 02/22/2019, Additional history exists Albumin/Creatinine Ratio 11/03/2024 024, 10/23/2022, 07/17/2022, Additional history exists CKD HGB USE SMARTSET 35789 12/10/202412/10, 08/04/2023, 08/04/2023, Additional history exists O2 [...] this encounter Medical Devices Implanted Type Area Hide Puller Device Identifier Shelf Expiration Date Model / Serial / Lot Sut Steel 6 M654g - [id number] Implanted:Qty: 3 on 02/15/2011 at OR [facility] [place] N/A: Chest DO NOT USE 01/15/2015 M654G / / [id number] Band Magdy 225-241 - [id number] Implanted:Qty: 1 on 02/15/2011 at OR [facility] [place] N/A: Chest [employer] 225-241 / / [id number] Sut Steel 6 M654g - [id number] Implanted:Qty: 1 on 02/15/2011 at OR [facility] [place] N/A: Chest DO NOT USE 07/21/2015 M654G / / [id number] documented as of this encounter Visit Diagnoses Diagnosis Urge incontinence- Primary Urge incontinence Recurrent UTI Urinary tract infection, site not specified Recurrent UTI- Primary Urinary tract infection, site not specified Urge incontinence documented in this encounter Advance Directives Documents on File Type Date Recorded 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
--- OUTSIDE RECORDS SUMMARY | 2024-03-03 08:14 | External Medical Summary | Summary of Care ---
Author Name Unknown Organization [facility] Address [address] [place] [address] Phone [phone] Care Team Providers Care Principal Secretary Name Role Phone Carmen Sifuentes MD Primary Care Provider [phone]- [phone] Reason for Visit * Auth/Cert Specialty Diagnoses / Procedures Referred By Contac t Referred To Contact Diagnoses Urge incontinence Urge incontinence [N39.41] Procedures SURGICAL DRAINAGE OF BLADDER CYSTOSTOMY WITH DRAINAGE OF BLADDER Alfredo Panda MD [address] [address] Or [facility] [address] [place] [address] Referral ID Status Reason Start Date Expiration Date Visits Re quested Visits Authorized [id number] Encounter Details Date Type Department Care Team (Latest Contact Info) Description 12/31/2023 1:48 PM EDT - 12/31/2023 5:38 PM EDT Hospital Encounter OR [facility], Operating Room, [facility] - 4th Floor [address] [place] [address] Alfredo Panda MD [address] [address] Discharge Disposition: Home - Self Care Allergies Active Allergy Reactions Criticality Noted Date Comments Propoxyphene Hcl Rash Low 10/29/2010 Fentanyl Diarrhea Low 04/26/2010 anxiety Methocarbamol Medium 10/05/2020 Other reaction(s): Delirium Methocarbamol Low 04/15/2007 Zolpidem Low 10/05/2020 Other reaction(s): Confusion documented as of this encounter (statuses as of 01/01/2024) Medications Medication Sig Dispensed Refills Start Date End Date Status venlafaxine XR (EFFEXOR XR) 150 MG [id number]:Dep ression Take 1 Cap by mouth daily. With food. 30 Cap 5 09/02/2016 Active Additional Information Patient taking differently: 225 mgOral Daily(AM),Taking a total of 225 mg, Indications: Takes 225 mg total every morning with food (150 mg tab + 75 mg tab), Reported on 03/03/2023 Blood Glucose Monitoring Suppl (HASH GLUCOMETER) w/Device KITIndications:Unco ntrolled type 2 diabetes mellitus without complication, without long-term current use of insulin Use as directed. Use as directed once daily 1 Kit 11/18/2017 Active Blood Glucose Monitoring Suppl (Limin [employer] VERIO) w/Device KIT Use as directed. Use as directed. 1 Kit 10/31/2018 Active Spacer/Aero-Holding Chambers WISAM Use with inhaler. Wheezing/bronchitis . 1 Device 04/08/2019 Active Lancet Devices (Karo InternetTOUCH DELICA LANCING DEV) MISC Use four times [...] Oral Tablet (Demadex)Indication s:Atherosclerotic heart disease of stillaguamish coronary artery with other forms of angina [...] minutes 25 Tablet 5 10/16/2023 Active Nystatin 733912 UNIT/GM External Powder (Nystop)Indications :Candidal intertrigo Apply topically to affected area 3 times a day. Apply to right breast until rash resolved. 30 g 10/16/2023 Active Nystatin 299718 UNIT/ML Mouth/Throat Suspension SWISH AND SWALLOW 5ML IN THE MORNING AND 5ML AT NOON AND 5 ML IN THE EVENING AND 5ML BEFORE BEDTIME, FOR THRUSH 240 mL 1 10/16/2023 Active Metoprolol Succinate ER 25 MG Oral Tablet Extended Release 24 Hour (toPROL XL)Indications:HTN, goal below 130/80 TAKE 1 TABLET BY MOUTH EVERY MORNING 90 Tablet 10/25/2023 Active Vitamin D (Ergocalciferol) 1.25 MG (69268 UT) Oral Capsule (Drisdol)Indication s:Vitamin D deficiency [...] with dinner 90 Tablet 3 12/23/2023 Active oxyCODONE-Acetamino phen 5-325 MG Oral Tablet (Percocet) Take 1 Tablet by mouth every 8 hours as needed for Pain, Severe. 8 Tablet 12/31/2023 Active documented as of this encounter (statuses [...] mg daily Coronary artery disease invo lving stillaguamish coronary artery of stillaguamish heart without angina pectoris 11/15/2021 Last Assessment & Plan: Stable. No angina -continue toprol, ASA and statin Seasonal allergies 11/15/2021 Recurrent UTI 10/07/2021 Last Assessment & Plan: Followed by urology Pt is supposed to be on methenamine--will need to clarify with dgt that she is giving this. 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 09/29/2019 Diabetic gastroparesis [...] 01/16/22 Moderate aortic stenosis 05/06/2018 Anxiety 08/05/2017 Cacvudp-Xazbn-Grlbj disease 06/27/2015 Last Assessment & Plan: Frequent [...] liver 05/06/2018 Atherosclerotic heart diseas e of stillaguamish coronary artery with other forms of angina [...] stenosis 10/31/2010 08/28/2018 Acute coronary syndrome 10/30/201001/04 [place] Research Other*[id number] 02/02/2010 04/18/2014 Overview: [facility], Dr Althea Kwon PI Obesity, morbid [...] Sign Reading Time Taken Comments Blood Pressure 123/74 12/31/2023 5:30 PM EDT Pulse 68 12/31/2023 5:30 PM EDT Temperature 36.6 C (97.9 F) 12/31/2023 5:30 PM ED T Respiratory Rate 17 12/31/2023 5:30 PM EDT Oxygen Saturation 100% 12/31/2023 5:30 PM EDT Inhaled Oxygen Concentration - - Weight 110.2 kg (243 lb) 12/25/2023 9:58 AM EDT Height 172.7 cm (5' 8") 12/25/2023 9:58 AM EDT Body Mass Index 36.95 12/25/2023 9:58 AM EDT documented in this encounter Discharge Instructions * Discharge Instr - AVS* Alfredo Panda MD - 12/31/2023 4:05 PM EDT Catheter to gravity drainage as instructed, bag should be below the level of the bladder. Ensure there is no tension on the catheter. Drainage and debris around the catheter is expected. Okay to use soap and water, half diluted peroxide solution for cleaning daily. Some bleeding around and through the catheter is expected. The catheter is not expected to drain continuously. If it does not put out urine for a significant period of time check for kinks or folds in the catheter or catheter line. Proceed to the ER with a fever greater than 100.5, chills, nausea, vomiting, catheter blockage or other significant difficulties. documented in this encounter Progress Notes * Joelne West [facility] - 12/31/2023 4:31 PM EDT PHARMACY DISCHARGE MEDICATION RECONCILIATION REVIEW [facility]-[address] [address] Name: Angelina Ballard Location: [facility] Date: 12/31/2023 Time: 4:31 PM This discharge medication reconciliation was reviewed by a pharmacist and no corrections or interventions were required. * Alfredo Panda MD - 12/31/2023 4:12 PM EDT [address] [address] OUTPATIENT SURGERY DISCHARGE SUMMARY NOTE Name: Angelina Ballard Location: OR [facility] Date: 12/31/2023 Time: 4:12 PM Surgery Date: 12/31/2023 Procedure: CYSTOSTOMY WITH DRAINAGE OF BLADDER N/A Surgeon: Alfredo Panda MD Discharge Diagnosis: Recurrent UTI, urinary incontinence status post cystoscopy and suprapubic tubeplacement After examination of this patient, I have determined she is ready for discharge to home when the patient meets criteria. Discharge instructions were given to the patient. documented in this encounter H&P Notes * Alfredo Panda MD - 12/31/2023 2:30 PM EDT HISTORY & PHYSICAL INTERVAL NOTE [address] [address] History and Physical Update: Name: Angelina Ballard Location: OR [facility] Date: 12/31/2023 Time: 2:30 PM DATE OF HISTORY AND PHYSICAL: December 05, 2023 BP: 143 mmHg/126 mmHg (12/31/23 142) Pulse: 84 (12/31/23 142) Resp: 16 (12/31/23 142) Temp: 36.78 C (12/31/231425) Temp Summary: Temp Min: 36.8 C (98.2 F) Max: 36.8 C (98.2 F) SpO2: 98 % (12/31/231425) O2 flow rate: Supplemental O2 Delivery: Room Air, None (12/31/231425) Does patient take a beta allie? Yes, metoprolol Did patient stop anticoagulants? Yes, Aspirin Heart Exam: regular rate and rhythm Lung Exam: clear to auscultation bilaterally Other Pertinent Physical Exam: Abdomen benign I have reviewed the H&P previously performed and examined the patient today. The following findings are new: Positive preoperative culture covered with cefdinir by primary care physician. Culture Growth >100,000 colonies/mL Escherichia coli Abnormal 10,000 to 100,000 colonies/mL Enterobacter cloacae complex Abnormal This bacterial species is known to produce an inducible AmpC beta lactamase. Except for the treatment of simple cystitis, recommend avoiding penicillins or cephalosporins other than cefepime. <10,000 colonies/ml mixed normal indira Resulting Agency: Susceptibility Escherichia coli Enterobacter cloacae complex MICROBROTH DILUTIONS MICROBROTH DILUTIONS Ampicillin Susceptible Cefazolin Susceptible Cefepime Susceptible Susceptible Cefoxitin Resistant Ceftriaxone Susceptible Susceptible 1 Ciprofloxacin Susceptible 2 Susceptible 2 Gentamicin Susceptible Susceptible Nitrofurantoin Susceptible Intermediate Piperacillin Tazobactam Susceptible Susceptible 1 Trimeth/Sulfamethoxazole Susceptible Susceptible 1 Avoid unless for the treatment of simple cystitis. 2 Due to serious side effects, the FDA has advised against using Ciprofloxacin to treat uncomplicated UTIs and respiratory tract infections unless there are no alternative treatment options. * Alfredo Panda MD - 12/31/2023 2:22 PM EDT GENERAL HISTORY & PHYSICAL EXAMINATION - Urology Service [address] [address] Name: Angelina Ballard Location: [facility] Date: 12/31/2023 Time: 2:22 PM Date of H&P December 05, 2023. [id number] PCP: CARMEN SIFUENTES [address] [place] [id number] Angelina Ballard is a 73 year old female, who presents For short-term follow-up of her difficulties with urinary incontinence and urinary tract infection. Patient's past notes reviewed. Her upcoming visit with ID is noted. She is here with daughter. Urinary Incontinence: Patient is being seen for urinary incontinence. Problem has been present for years. Severity is moderate. Problem is getting worse. Urinary incontinence is urge incontinence. They are using 10-15 pads a day. They have used oxybutynin in the past, stopped. Trial of Myrbetriq provided without improvement. Recurrent UTI: Presented to Urology March 2021. On prophylactic Macrobid. Cystoscopy Oct 2021. Previously treated with fosfomycin. Renal US Apr 2021: IMPRESSION: Kidneys within normal limits. Splenomegaly. UC&S November 2023: Culture Growth 10,000 to 100,000 colonies/mL Proteus mirabilis Abnormal <10,000 colonies/ml mixed normal indira Resulting Agency: Susceptibility Proteus mirabilis MICROBROTH DILUTIONS Ampicillin Resistant Ampicillin/Sulbactam Susceptible Cefazolin Susceptible Cefepime Susceptible Ceftriaxone Susceptible Ciprofloxacin Resistant 1 Gentamicin Susceptible Levofloxacin Resistant 2 Piperacillin Tazobactam Susceptible Trimeth/Sulfamethoxazole Resistant UC&S Sep 2023: Culture Growth >100,000 colonies/mL Proteus mirabilis Abnormal Creatinine Results: Lab Results Component Value Date/Time CREATININE - [facility] 1.0 10/21/2023 12:07 PM CREATININE - [facility] 1.3 (H) 08/04/2023 09:14 AM CREATININE - [facility] 1.0 06/17/2023 12:33 PM CREATININE - [facility] 1.0 07/18/2020 12:20 PM CREATININE - [facility] 0.9 05/22/2020 01:24 PM CREATININE - [facility] 0.8 12/14/2019 01:10 PM CREATININE, RANDOM URINE - [facility] 30 11/04/2023 10:03 AM CREATININE, RANDOM URINE - [facility] 41 10/23/2022 10:59 AM CREATININE, RANDOM URINE - [facility] 32 07/17/2022 08:54 AM CREATININE, RANDOM URINE - [facility] 144 07/16/2017 12:06 PM CREATININE, RANDOM URINE - [facility] 39 10/30/2016 02:13 PM CREATININE, RANDOM URINE - [facility] 130 09/05/2015 04:09 PM CREATININE-[facility] 1.13 02/26/2021 12:00 AM CREATININE-[facility] 1.31 (A) 02/09/2021 12:00 AM CREATININE-[facility] 0.95 09/15/2019 12:00 AM Current Medications Current Outpatient Medications Medication Sig Dispense Refill venlafaxine XR (EFFEXOR XR) 150 MG CP24 Take 1 Cap by mouth daily. With food. (Patient taking differently: Take 225 mg by mouth in the morning. Taking a total of 225 mg.) 30 Cap 5 venlafaxine XR (EFFEXOR XR) 75 MG CP24 [...] by mouth every morning. 30 Tablet 5 lamoTRIgine 25 MG Oral Tablet (LaMICtal) 1 Tablet. Taking 2 at bedtime and 1 in morning Dicyclomine HCl 10 MG Oral Capsule (Bentyl) TAKE ONE CAPSULE BY MOUTH FOUR TIMES DAILY NEEDED FOR ABDOMINAL PAIN 120 Capsule 3 Ondansetron HCl 8 MG Oral Tablet (Zofran) TAKE 1 TABLET BY MOUTH EVERY 8 HOURS NEEDED FOR [id number] Tablet 5 metFORMIN HCl ER 500 MG Oral [...] BY MOUTH EVERY MORNING 90 Tablet 3 Vitamin C 500 MG Oral Tablet (Ascorbic [...] MOUTH TWICE DAILY 60 Capsule 5 Nystatin 993093 UNIT/GM External Powder (Nystop) Apply topically to affected area 3 times a day. Apply to right breast until rash resolved. 30 g 0 Nystatin 607558 UNIT/ML Mouth/Throat Suspension SWISH AND SWALLOW 5ML IN THE MORNING AND 5ML AT NOON AND 5 ML IN THE EVENING AND 5ML BEFORE BEDTIME, FOR THRUSH 240 mL 1 Metoprolol Succinate ER 25 MG Oral Tablet Extended Release 24 Hour (toPROL XL) TAKE 1 TABLET BY MOUTH EVERY MORNING 90 Tablet 0 Vitamin D (Ergocalciferol) 1.25 MG (07583 UT) Oral Capsule (Drisdol) TAKE 1 CAPSULE [...] 1 Tablet by mouth in the morning. guaiFENesin ER 600 MG Oral Tablet Extended [...] BY MOUTH EVERY MORNING 90 Tablet 3 Blood Glucose Monitoring Suppl (D-VirtualScopics GLUCOMETER) w/Device KIT Use as directed. Use as directed once daily 1 Kit 0 Blood Glucose Monitoring Suppl (Limin Chemical VERIO) w/Device KIT Use as directed. Use as directed. 1 Kit 0 Spacer/Aero-Holding Chambers WISAM Use with inhaler. Wheezing/bronchitis. 1 Device 0 Lancet Devices ([employer] LANCING DEV) MISC Use four times a day Dx: E11.4 1 Each 0 NovoFine 32G X 6 MM (NOVOFINE 32G PEN NEEDLE) using twice a day with levemir 100 Each 5 AIRS Disposable Nebulizer Kit Use as directed 1 Kit 0 Albuterol Sulfate HFA 108 (90 Base) MCG/ACT Inhalation Aerosol Solution Use two puffs four times a day, as directed 18 g 3 UltiCare Pen Williamson 31G X 5 MM (Insulin Pen Needle) use TWICE DAILY 200 Each 3 Zoster Vac Recomb Adjuvanted 50 MCG/0.5ML Intramuscular Suspension Reconstituted (Shingrix) Inject 0.5 mL into a large muscle now and repeat dose in 60 to 180 days (Patient not taking: Reported on 11/18/2023) 1 Each 1 MEDICAL INSTRUCTIONS Please arrange for as needed Home retirement visit for obtaining straightcath urine sample for 06/25/23. 1 Each 1 Wiziva In Vitro Strip (Glucose Blood) use to test blood sugar 3 times daily 300 Strip 1 [employer] Lancets 33G USE UP TO FOUR TIMES A DAY Dx:E11.4 360 Each 5 Nitroglycerin 0.4 MG Sublingual Tablet Sublingual (Nitrostat) Place 1 Tablet under the tongue every5 minutes as needed for Pain, Chest. Max dose 3 tablets in 15 minutes 25 Tablet 5 Nitrofurantoin Monohyd Macro 100 MG Oral Capsule (Macrobid) Take 1 Capsule by mouth in the morning and 1 Capsule before bedtime. With food.. (Patient not taking: Reported on 12/05/2023) 60 Capsule 0 Excedrin Migraine 250-250-65 MG Oral Tablet (Bwlkbai-Zskmpgbhmqrgh-Lyejxttu 250-250-65 mg per tab) Take 1 Tablet by mouth every 6 hours as needed. Acetaminophen 500 MG Oral Tablet (Tylenol) Take 1 Tablet by mouth every 6 hours as needed. No current facility-administered medications for this visit. Allergies Review of patient's allergies indicates: Allergen Reactions Methocarbamol Other reaction(s): Delirium Darvon [Propoxyphene Hcl] Rash Fentanyl Diarrhea anxiety Robaxin [Methocarbamol] Zolpidem Other reaction(s): Confusion Social History: Social History - Alcohol and Tobacco Use Social History Tobacco Use Smoking status: Never Passive exposure: Past Smokeless tobacco: Never Tobacco comments: Parents and then smoked Substance Use Topics Alcohol use: No Vaping History Vaping/E-Cigarette Use Vaping/E-Cigarette Use Never User Vaping History Vaping/E-Cigarette Substances Vaping History Vaping/E-Cigarette Devices Family History Family History Problem Relation Name Age of Onset Heart Disorder Mother angina Heart Disorder Father [place] @ 50's No Known Problems Brother Heart disease Brother Alcohol and Other Disorders Associated Brother Alcoholism Past Surgical History Past Surgical History: Procedure Laterality Date ANESTHESIA, HEART CATHETERIZATION 06/04/12 at [facility] ARTHROPLASTY KNEE TOTAL right CABG, ARTERIAL, SINGLE 02/15/2011 CORONARY ARTERY BYPASS GRAFT USING ARTERY 1 GRAFT performed by TIERNEY GUERRERO at [place] [facility] CATHETERIZE LEFT HEART THRU SKIN 04/11/2009 LEFT HEART CATH, PERCUTANEOUS performed by GINGER FISHER at [facility] CATHETERIZE LEFT HEART THRU SKIN 02/01/2010 LEFT HEART CATH, PERCUTANEOUS performed by ALTHEA KWON at [facility] CATHETERIZE LEFT HEART THRU SKIN 04/03/2010 LEFT HEART CATH, PERCUTANEOUS performed by GARCIA SOSA at [facility] COLONOSCOPY, DIAGNOSTIC (RECTUM) 05/20/2014 normal, repeat 10 yrs/done @ [facility] CORONARY ANGIOGRAPHY W/LEFT HEART CATH 10/29/2010 CORONARY ANGIOGRAPHY W/LEFT HEART CATH performed by ANNIE SEVILLA at [facility] EGD, FLEXIBLE, DIAGNOSTIC 12/05/2017 portal hypertensive gastropathy/[facility] EGD, FLEXIBLE, DIAGNOSTIC 10/25/2022 retained food / ESOPHAGOGASTRODUODENOSCOPY (EGD), FLEXIBLE, TRANSORAL, DIAGNOSTIC performed by Raghavendra Medrano MD at ENDOSCOPY [facility] EGD, W/ENDOSCOPIC US 06/26/2011 UPPER GI ENDOSCOPY ENDOSCOPIC ULTRASOUND performed by RACHEL BAHENA at ENDOSCOPY [facility] OTHER nerve biopsy right calf REMOVAL OF APPENDIX REMOVE ADDED SPINE LAMINA, 1 SEG 07/2007 Dr. Saleem L4-L5 REMOVE GALLBLADDER TOTAL ABD HYSTERECTOMY W/WO REMOVAL OF TUBE(S) Past Medical History Past Medical History: Diagnosis Date ASCVD (arteriosclerotic [...] Cooper Phlebitis and thrombophlebitis Seasonal allergies 11/15/2021 Problem List Patient Active Problem List Diagnosis PERONEAL MUSCLE ATROPHY Gastroesophageal reflux disease without esophagitis S/P angioplasty with stent Dyslipidemia, goal LDL below 70 Hypothyroidism GONZALEZ (nonalcoholic steatohepatitis) Bipolar I disorder, most recent episode depressed, moderate (HCC) HTN, goal below 130/80 MEDICATION USE AGREEMENT Zkpuepo-Ykyal-Ykivk disease Anxiety Hypertensive heart disease with chronic [...] (HCC) Recurrent UTI Coronary artery disease involving stillaguamish coronary artery of stillaguamish heart without angina pectoris Seasonal allergies Hypertensive heart and kidney disease with chronic diastolic congestive heart failure and stage 3a chronic kidney disease ([facility]) Medical home patient encounter Food insecurity Allergic rhinitis Chronic kidney disease, stage 3a ([facility]) COPD, group B, by GOLD 2017 classification ([facility]) Constitutional: (-) fever ENT: (-) stridor Pulmonary: (+) dyspnea Female : (+) see HPI Musculoskeletal: (+) muscle weakness Neurology: (+) loss of balance Psychiatry: (-) negative: no depression or anxiety Physical Exam Constitutional: General: She is not in acute distress. Appearance: She is obese. She is not ill-appearing or toxic-appearing. Comments: In wheelchair HENT: Head: Normocephalic and atraumatic. Right Ear: External ear normal. Left Ear: External ear normal. Nose: Nose normal. Mouth/Throat: Mouth: Mucous membranes are moist. Eyes: Extraocular Movements: Extraocular movements intact. Pulmonary: Effort: Pulmonary effort is normal. No respiratory distress. Abdominal: General: Abdomen is protuberant. Musculoskeletal: Cervical back: Normal range of motion. No rigidity. Skin: Coloration: Skin is not pale. Neurological: Mental Status: She is oriented to person, place, and time. Motor: Weakness present. Gait: Gait abnormal. Psychiatric: Behavior: Behavior normal. Thought Content: Thought content normal. Impression/Plan: 73 yo female with persistent incontinence and bacteruria. Findings reviewed with patient. After lengthy discussion patient wishes to proceed with suprapubic tube placement. The rotation of negative cultures, Proteus and E coli without significant changes inantibiotic sensitivities suggest outside recall colonization of the urinary tract rather than persistent presence of untreated bacteriuria or significant nidus. CT scan also is suggestive of the samething. Considering the patient's pannus I think suprapubic tube placement under anesthesia for a larger caliber would be wagner. Risks and benefits reviewed. Will need coverage preoperatively for both of her previous antibiotics. She can hold on her prophylactic Macrobid for the time being. As reviewed with patient, I suspect her symptomatology rather than her bacteriuria is the larger problem. Patient will follow-up with Infectious Disease as discussed. Will tentatively scheduled for intervention. Questions answered. Above content is personally reviewed. Patient vocalizes good understanding ofthe treatment plan. Cysto, open SPT 2 week wound check 1 month cysto, SPT exchange Alfredo Panda MD 1:22 PM 12/05/2023 documented in this encounter Nursing Notes * Nicko Ruiz RN - 12/31/2023 5:38 PM EDT [address] [address] SameDay Surgery Discharge Note Name: Angelina Ballard Date: 12/31/2023 Time: 5:38 PM Discharge Disposition: Home Responsible adult as escort home: Daughter Transport Mode: Wheelchair Accompanied by: Reanna Ruiz RN To: Car Belongings with patient: Yes Patient meets criteria to be transferred or discharged. * Deonna Pride RN - 12/26/2023 9:04 AM EDT Patient identified by: name/birthdate Person taught: Micheal- Angela. Pizano case procedure confirmed with patient/parent/guardian - no consent signed. Laterality confirmed as N/a Surgery date at time of Pre-Surgery Center Encounter: 12/31/2023. What procedure is patient having? Suprapubic tube placement In an emergency, is patient willing to accept blood products or blood transfusion? Unknown. Do you need to place a blood bank order? No Anesthesia consent pool notified? N/A Anesthesia evaluation requested per case documentation? No Preop Evaluation Requested? No PATIENT EDUCATION SCREENING Person taught: Carolyn. Motivation Level: Asks Questions and Eager to Learn Language Barrier: No Physical Barrier: N/A METHOD: Lecture-telephone interview Patient Preferred Learning Methods: Lecture-Telephone interview Health History interview completed, questions answered, and the following patient instructions provided via telephone interview: Preoperative bathing instructions General preoperative instructions Medication instructions NPO instructions - If your normal morning routine take your Inhaler, Abilify, Atorvastatin, Klonopin, Pepcid, Gabapentin, Lamictal, Levothyroxine, Metoprolol, Singulair, Protonix, and Venlafaxine the morning of surgery. If you take metformin, hold it the evening before surgery as well. No tobacco products after midnight. Carolyn to call surgeon for low dose ASA instructions. Carolyn states her mother has been off of her Trulicity for around 2 months d/t it being on backorder. OUTCOME: State / Describe / Explain and Needs Reinforcement documented in this encounter OR Notes * OR Surgeon - Alfredo Panda MD - 12/31/2023 4:27 PM EDT [address] [place] [address] OPERATIVE REPORT Name: Angelina Ballard Date: 12/31/2023 Time: 4:27 PM Location: OR [facility] Service: Urology Date of Operation: 12/31/2023 Pre-op Diagnosis: Recurrent UTIs, refractory urge incontinence Post-op Diagnosis: Same Surgeon: Alfredo Panda MD Assistants: Feli Vera PA-C. No qualified resident available. Jewel Staker present for tissue retraction, passage of tractor, patient positioning and general patient safety. Anesthesia: General anesthesia with laryngeal mask plus local at skin Operation: Cystoscopy, open suprapubic tube placement. Findings: Grade 3 bladder trabeculation, good position of anterior suprapubic tube after completionof case. Case Acuity: Elective Wound Class: Contaminated Infection Present at the Time of Surgery: Yes Evidence of infection: Positive urine culture Specimen and Disposition: None Estimated Blood Loss: Less than 10 mL Fluids: Less than 1000 mL Drains/Implants: 24 Ghanaian silicone suprapubic catheter with 12 mL of sterile water in the balloon. Complications: none Postoperative Condition: stable Indications and History: Patient is a 73-year-old female with a history of recurrent urinary tract infection and urge incontinence who is here today for suprapubic tube placement due to difficulties with her ongoing urinary symptoms. Please see outpatient H&P and notes for further details. Informed consent obtained preoperatively today. IV Rocephin provided for antibiotic coverage, patient has been covered for her positive preoperative culture with cefdinir by primary care physician. SCDs used for DVT prophylaxis. No new questions, wishes to proceed. Description of Operation: Patient was properly identified and brought into the operative suite after identification of appropriate consent in the chart. General anesthesia with laryngeal mask was initiated and patient was prepped and draped in the standard fashion for this procedure. blade sharpener-out procedure was followed. Twenty-one Ghanaian rigid cystoscope was introduced into the bladder and the bladder was surveyed in itsentirety demonstrating a normal urethra, trabeculated bladder with mild inflammation and cystitis cystica, grade 3 trabeculation with cellules and evidence of chronic bladder outlet obstruction. No evidence of papillary lesions or tumor was identified. Ureteral orifices were appreciated in the you l anatomic location with mild lateral floor bladder relaxation. Bladder was flushed with greater than 1 L of sterile fluids. After this was complete the bladder was partially distended and a [place]ley tractor was passed through the urethra and used to tent the anterior abdominal wall. 15 blade was used to incise the skin and Bovie cautery and [place] retractors were used to access the fascia and make a small incision which was used to deliver the tractor via the suprapubic incision. 2-0 silk tie was used via the eyelet of a 24 Ghanaian silicone Gallagher catheter and grasped via the tractor which was then brought through the urethra wire was then released. Suprapubic tube was brought back into the bladder and 12 mL of sterile water were placed in the balloon. Return of clear irrigant was appreciated. Cystoscopy was repeated demonstrating good location in the anterior bladder wall of the suprapubic tube with the balloon fully present within the bladder. Seen the patient's significant pannus decision was made to avoid tethering the suprapubic tube at the level of the skin with a drain suture to prevent dislodging. Sterile dressing was placed and anesthesia was reversed. Patient was transferred to the recovery room in stable condition. Follow-up care: Intraoperative findings reviewed with the patient's daughter present here today. Prescription for a short course of Percocet for pain control was provided. Patient's complete her cefdinir. Outpatient appointments are confirmed. Worrisome signs and symptoms reviewed with patient and daughter. Patient is instructed to contact us with any fevers, chills, nausea, vomiting or other difficulties in the postoperative period. Attestation: I performed the procedure documented in this encounter Plan of Treatment Upcoming Encounters Date Type Department Care Team (Late st Contact Info) Description 01/05/2024 2:00 PM EDT Home Visit Gealbertina at [facility] [address] [address] [address] Connie Mccullough RN [address] [place] [address] 01/16/2024 9:45 AM EDT Office Visit Urology Kimberly Harmon [address] [facility] [address] [address] Alrfedo Panda MD [address] [place] [address] 01/26/2024 3:45 PM EDT Procedure Only Urology, [facility] [address] [address] Alfredo Panda MD [address] [address] [address] 02/09/2024 9:00 AM EDT Home Visit Manpreet at [facility] [address] [address] Kirby Valenzuela PA-C [address] [place] [address] 03/02/2024 4:00 PM EDT Imaging Radiology, [address] [place] [address] 06/08/2024 6:00 PM EST [address] [address] Carmen Sifuentes MD [address] [place] [address] Scheduled Procedures Name Priority Associated [...] 06/10/2021, 08/29/2020, 08/01/2020 CKD PHOS USE SMARTSET 29789 10/24/202310/05, 02/18/2022, 02/17/2022, Additional history exists GFR 04/21/2024 10/21/2023, 07/08, 06/17/2023, Additional history exists Colonoscopy 05/20/2024 05/20/2014 Colorectal Cancer Screening 05/20/2024 HbA1c 06/11/2024 12/11/2023, 06/06, 10/23/2022, Additional history exists TSH 06/17/2024 06/17/2023, 05/08, 02/13/2023, Additional history exists Diabetic Foot Exam 10/15/2024 10/16/2023, 1 07/22/2019, 02/22/2019, Additional history exists Albumin/Creatinine Ratio 11/03/2024 024, 10/23/2022, 07/17/2022, Additional history exists CKD HGB USE SMARTSET 44781 12/10/202412/10, 08/04/2023, 08/04/2023, Additional history exists O2 [...] this encounter Medical Devices Implanted Type Area Neurophysiologist Device Identifier Shelf Expiration Date Model / Serial / Lot Sut Steel 6 M654g - [id number] Implanted:Qty: 3 on 02/15/2011 [place] [facility] [place]A: Chest DO NOT USE 01/15/2015 M654G / / [id number] [facility] 225-241 - [id number] Implanted:Qty: 1 on 02/15/2011 at [place] [facility] [place]/A: Chest [employer] 225-241 / / [id number] Sut Steel 6 M654g - [id number] Implanted:Qty: 1 on 02/15/2011 at [place] [facility] [place] N/A: Chest DO NOT USE 07/21/2015 M654G / / [id number] documented as of this encounter Procedures Procedure Name Priority Date/Time Associated Diagnosis Comments GLUCOSE METER, POINT OF CARE [facility] 12/31/2023 2:45 PM EDT documented in this encounter Results * (ABNORMAL) GLUCOSE METER, POINT OF CARE (12/31/2023 2:45 PM EDT) Glucose Meter 132(H) 70 - 120 mg/dL 12/31/2023 2:48 PM EDT [facility] Blood Whole blood specimen / Unknown 12/31/2023 2:45 PM EDT 12/31/2023 2:48 PM EDT Alfredo Panda MD LAB POINT OF CAR E TEST DOCKED DEVICE UNSOLICITED RESULTS [facility] [address] [place] [address] documented in this encounter Visit Diagnoses Diagnosis Urge incontinence- Primary Urge incontinence Recurrent UTI Urinary tract infection, site not specified documented in this encounter Administered Medications Inactive Administered Medications - up to 3 most recent administrations Medication Order MAR Action Action Date Dose Rate Site Acetaminophen (Ofirmev) inj 1,000 mg 1,000 mg, Intravenous, PREOP, 1 dose, First dose on Fri12/31/23 at 1500, Administer over 15 Minutes, Administer undiluted over 15 minutes! NOTE: Maximum of 4000 mg per 24 hours of acetaminophen from all acetaminophen containing products., Pre-Op, Indication: Patient is strictly NPO New Bag 12/31/2023 3:01 PM EDT 1,000 mg 400 mL/hr isolyte-S pH 7.4 infusion Intravenous, at 50 mL/hr, Plasma-LYTE 148, isolyte-S, and isolyte-S pH 7.4 are considered equivalent - including for MAR barcode scanning., CONTINUOUS, Starting on Fri12/31/23 at 1500, Until Fri12/31/23 at 2139, Pre-Op Restarted 12/31/2023 3:17 PM EDT Continue from Pre-Op 12/31/2023 3:06 PM EDT 50 mL/hr New Bag 12/31/2023 3:03 PM EDT 50 mL/hr documented in this encounter Active and Recently Administered Medications Times are shown in EDT. Scheduled Medication Order 12/29/2023 12/30/2023 12/31/2023 Acetaminophen (Ofirmev) inj 1,000 mg (COMPLETED) 1,000 mg, Intravenous, PREOP, 1 dose, First dose on Fri12/31/23 at 1500, Administer over 15 Minutes, Administer undiluted over 15 minutes! NOTE: Maximum of 4000 mg per 24 hours of acetaminophen from all acetaminophen containing products., Pre-Op, Indication: Patient is strictly NPO 1501 (New Bag - Prov ider: Paul Robin RN) cefTRIAXone in dextrose (Rocephin) IVPB 2 g (COMPLETED) IV Piggyback, 2 g, PREOP, 1 dose, First dose on Fri12/31/23 at 1500, Administer over 30 Minutes, +++ SDS for Saturday 12/30 +++, Pre-Op 1513 (Given - Provid er: Jus Boothe CRNA) Continuous Medication Order 12/29/2023 12/30/2023 12/31/2023 isolyte-S pH 7.4 infusion Intravenous, at 50 mL/hr, Plasma-LYTE 148, isolyte-S, and isolyte-S pH 7.4 are considered equivalent - including for MAR barcode scanning., CONTINUOUS, Starting on Fri12/31/23 at 1500, Until Fri12/31/23 at 2139, Pre-Op 1503 (New Bag - Prov ider: Paul Robin RN)1506 (Continue from Pre-Op - Provider: Jus Boothe CRNA)1516 (Paused - Provider: Jus Boothe CRNA - Comment: Switch to gravity)1517 (Restarted - Provider: Jus Boothe CRNA)1614 (Stopped - Provider: Jus Boothe CRNA) isolyte-S pH 7.4 infusion Intravenous, at 50 mL/hr, Plasma-LYTE 148, isolyte-S, and isolyte-S pH 7.4 are considered equivalent - including for MAR barcode scanning., CONTINUOUS, Starting on Fri12/31/23 at 1645, Until Fri12/31/23 at 2139, Post-op 1645 (Due) PRN Medication Order 12/29/2023 12/30/2023 12/31/2023 HYDROmorphone (Dilaudid) inj 1 mg 1 mg, IV Push, Q3H PRN Pain, Severe, Starting on Fri12/31/23 at 1609, Until Fri12/31/23 at 2139, For 6 hours, Post-op Lidocaine 1 % (PF) inj (CANCELED) ONCE PRN INTRA PROCEDURE, Starting on Fri12/31/23 at 1554, Until Fri12/31/23 at 1609, Intra-Op 1554 (Given - Provid er: Alfredo Panda MD) oxyCODONE-acetaminophen 5-325 mg per tab (Percocet) 1 Tablet 1 Tablet, Oral, Q4H PRN Pain, Moderate, Starting on 6/26/24 at 1609, Until Fri12/31/23 at 2139, For 6 hours, Maximum of 4 grams (4000 mg) of acetaminophen per day, Post-op documented in this encounter Advance Directives Documents on File Type Date Recorded Patient Sprigger Expl anation POL 05/06/2018 POLST * Full [...] Adult Child Health Care Agent Care Teams Principal Secretary Relationship Specialty Start Date End Date Carmen Sifuentes MD [address] [facility] [place] [address] PCP - General Family Medicine 07/16/17 documented as of this encounter
--- OUTSIDE RECORDS SUMMARY | 2024-03-03 08:14 | External Medical Summary | Summary of Care ---
Author Name Unknown Organization [facility] Address [address] [facility] [place] [address] Phone [phone] Care Team Providers Care Employment Officer Name Role Phone Brian Domínguez MD Primary Care Provider [phone]- [phone] Reason for Visit * Reason Onset Date Comments [facility]: Maintenance 01/01/2024 Encounter Details Date Type Department Care Team (Late st Contact Info) Description 01/01/2024 Telephone [facility], [facility] [address] [facility] [place] [address] [facility], Nurse [facility] [address] [facility] [place] [address] [facility]: Maintenance Allergies Active Allergy Reactions Criticality Noted Date Comments Propoxyphene Hcl Rash Low 10/29/2010 Fentanyl Diarrhea Low 04/26/2010 anxiety Methocarbamol Medium 10/05/2020 Other reaction(s): Delirium Methocarbamol Low 04/15/2007 Zolpidem Low 10/05/2020 Other reaction(s): Confusion documented as of this encounter (statuses as of 01/01/2024) Medications Medication Sig Dispensed Refills Start Date End Date Status venlafaxine XR (EFFEXOR XR) 150 MG [id number]:Dep ression Take 1 Cap by mouth daily. [...] Kit 11/18/2017 Active Blood Glucose Monitoring Suppl (SUB ONE [employer]CH[employer] VERIO) w/Device KIT Use as directed. Use as directed. 1 Kit 10/31/2018 Active Spacer/Aero-Holding Chambers WISAM Use with inhaler. Wheezing/bronchitis . 1 Device 04/08/2019 Active Lancet Devices (PandaDocTOUCH DELICA LANCING DEV) MISC Use four times [...] Oral Tablet (Demadex)Indication s:Atherosclerotic heart disease of pai[place]shosh[place] coronary artery with other forms of angina [...] minutes 25 Tablet 5 10/16/2023 Active Nystatin 625358 UNIT/GM External Powder (Nystop)Indications :Candidal intertrigo Apply topically to affected area 3 times a day. Apply to right breast until rash resolved. 30 g 10/16/2023 Active Nystatin 964597 UNIT/ML Mouth/Throat Suspension SWISH AND SWALLOW 5ML IN THE MORNING AND 5ML AT NOON AND 5 ML IN THE EVENING AND 5ML BEFORE BEDTIME, FOR THRUSH 240 mL 1 10/16/2023 Active Metoprolol Succinate ER 25 MG Oral Tablet Extended Release 24 Hour (toPROL XL)Indications:HTN, goal below 130/80 TAKE 1 TABLET BY MOUTH EVERY MORNING 90 Tablet 10/25/2023 Active Vitamin D (Ergocalciferol) 1.25 MG (58429 UT) Oral Capsule (Drisdol)Indication s:Vitamin D deficiency [...] mg daily Coronary artery disease invo lving pai[place]-shosh[place] coronary artery of [place] heart without angina pectoris 11/15/2021 Last Assessment & Plan: Stable. No angina -continue toprol, ASA and statin Seasonal allergies 11/15/2021 Recurrent UTI 10/07/2021 Last Assessment & Plan: Followed by urology Pt is supposed to be on methenamine--will need to clarify with dgt that she is giving this. 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 of insulin 09/29/2019 [...] 01/16/22 Moderate aortic stenosis 05/06/2018 Anxiety 08/05/2017 Matmzel-Tvqdz-Cuxrk disease 06/27/2015 Last Assessment & Plan: Frequent [...] liver 05/06/2018 Atherosclerotic heart diseas e of pai[place]-shosh[place] coronary artery with other forms of angina [...] stenosis 10/31/2010 08/28/2018 Acute coronary syndrome 10/30/201001/04 [employer] Research Other*[id number] 02/02/2010 04/18/2014 Overview: [facility] Registry, Dr Joel Kwon PI Obesity, morbid [...] Description 01/05/2024 2:00 PM EDT [facility] Visit [facility] [address] [address] [address] Connie Mccullough RN [address] [place] [address] [address] 01/16/2024 9:45 AM EDT Office Visit UrologKimberly Diamond [address] [address] [id number] Alfredo Panda MD [address] [address] [address] 01/26/2024 3:45 PM EDT Procedure Only Urology, [facility] [address] [facility] [place] [address] Alfredo Panda MD [address] [address] [address] 02/09/2024 9:00 AM EDT Home Visit [facility], [facility] 132 [facility] [place] [address] Kirby Valenzuela PA-C [address] [facility] [place] [address] 03/02/2024 4:00 PM EDT Imaging Radiology, [address] [place] [address] 06/08/2024 6:00 PM EST Office Visit Family [facility] [address] [place] [address] Brian Domínguez MD [address] [place] [address] Scheduled Procedures Name Priority Associated Diagnoses Date/Ti [...] 06/10/2021, 08/29/2020, 08/01/2020 CKD PHOS USE SMARTSET 94644 10/24/202310/05, 02/18/2022, 02/17/2022, Additional history exists GFR 04/21/2024 10/21/2023, 07/08, 06/17/2023, Additional history exists Colonoscopy 05/20/2024 05/20/2014 Colorectal Cancer Screening 05/20/2024 HbA1c 06/11/2024 12/11/2023, 06/06, 10/23/2022, Additional history exists TSH 06/17/2024 06/17/2023, 05/08, 02/13/2023, Additional history exists Diabetic Foot Exam 10/15/2024 10/16/2023, 1 07/22/2019, 02/22/2019, Additional history exists Albumin/Creatinine Ratio 11/03/2024 024, 10/23/2022, 07/17/2022, Additional history exists CKD HGB USE SMARTSET 88006 12/10/202412/10, 08/04/2023, 08/04/2023, Additional history exists O2 [...] this encounter Medical Devices Implanted Type Area Multi Operation Forming Machine Setter Device Identifier Shelf Expiration Date Model / Serial / Lot Jenna Rojas 6 M654g - [id number] Implanted:Qty: 3 on 02/15/2011 at [place] [facility] [place] N/A: Chest DO NOT USE 01/15/2015 M654G / / [id number] Band [employer] 225-673 - [id number] Implanted:Qty: 1 on 02/15/2011 at [place] [facility] [place] N/A: Chest [employer] 225-241 / / [id number] Sut Steel 6 M654g - [id number] Implanted:Qty: 1 on 02/15/2011 at [place] [facility] [place] N/A: Chest DO NOT USE 07/21/2015 M654G / / [id number] documented as of this encounter Advance Directives Documents on File Type Date Recorded Patient 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
--- OUTSIDE RECORDS SUMMARY | 2024-03-03 08:14 | External Medical Summary | Summary of Care ---
Author Name Unknown Organization [facility] Address [address] [place] [address] Phone [phone] Care Team Providers Care Pediatric Anesthesiologist Name Role Phone Brian Domínguez MD Primary Care Provider [phone]- [phone] Reason for Visit * Reason Onset Date Comments Other 12/26/2023 Encounter Details Date Type Department Care Team (Late st Contact Info) Description 12/26/2023 Telephone Pre Surgery Center, [facility] [address] [facility] [place] [address] Alfredo Panda MD [address] [address] Other Allergies Active Allergy Reactions Criticality Noted Date Comments Propoxyphene Hcl Rash Low 10/29/2010 Fentanyl Diarrhea Low 04/26/2010 anxiety Methocarbamol Medium 10/05/2020 Other reaction(s): Delirium Methocarbamol Low 04/15/2007 Zolpidem Low 10/05/2020 Other reaction(s): Confusion documented as of this encounter (statuses as of 12/31/2023) Medications Medication Sig Dispensed Refills Start Date End Date Status venlafaxine XR (EFFEXOR XR) 150 MG [id number]:Dep ression Take 1 Cap by mouth daily. [...] Kit 11/18/2017 Active Blood Glucose Monitoring Suppl (PharnextTOUCH VERIO) w/Device KIT Use as directed. Use [...] INSTRUCTIONS Please arrange for as needed Home long-term visit for obtaining straight cath urine sample for 06/25/23. 1 Each 1 06/24/2023 Active Torsemide 20 MG Oral Tablet (Demadex)Indication s:Atherosclerotic heart disease of twenty-nine [place] coronary artery with other forms of angina [...] minutes 25 Tablet 5 10/16/2023 Active Nystatin 997617 UNIT/GM External Powder (Nystop)Indications :Candidal intertrigo Apply topically to affected area 3 times a day. Apply to right breast until rash resolved. 30 g 10/16/2023 Active Nystatin 109630 UNIT/ML Mouth/Throat Suspension SWISH AND SWALLOW 5ML IN THE MORNING AND 5ML AT NOON AND 5 ML IN THE EVENING AND 5ML BEFORE BEDTIME, FOR THRUSH 240 mL 1 10/16/2023 Active Metoprolol Succinate ER 25 MG Oral Tablet Extended Release 24 Hour (toPROL XL)Indications:HTN, goal below 130/80 TAKE 1 TABLET BY MOUTH EVERY MORNING 90 Tablet 10/25/2023 Active Vitamin D (Ergocalciferol) 1.25 MG (09295 UT) Oral Capsule (Drisdol)Indication s:Vitamin D deficiency [...] mg daily Coronary artery disease invo lving [place] coronary artery of [place] heart without angina pectoris 11/15/2021 Last Assessment & Plan: Stable. No angina -continue toprol, ASA and statin Seasonal allergies 11/15/2021 Recurrent UTI 10/07/2021 Last Assessment & Plan: Followed by urology Pt is supposed to be on methenamine--will need to clarify with dgt that she is giving this. 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 ID Type 2 diabetes mellitus wit [...] 01/16/22 Moderate aortic stenosis 05/06/2018 Anxiety 08/05/2017 Jsqcgxb-Seeij-Eoams disease 06/27/2015 Last Assessment & Plan: Frequent [...] liver 05/06/2018 Atherosclerotic heart diseas e of twenty-nine [place] coronary artery with other forms of angina [...] stenosis 10/31/2010 08/28/2018 Acute coronary syndrome 10/30/201001/04 [place] Research Other*[id number] 02/02/2010 04/18/2014 Overview: Karen Registry, Dr Joel [...] acute care registered nurse current use of ant icoagulant therapy 06/17/2006 [...] encounter Miscellaneous Notes * Telephone Encounter - Deonna Pride RN - 12/31/2023 7:48 AM EDT Patient is fine for surgery today, per Dr. Sims, as ECHO was stable compared to prior. Thanks. * Telephone Encounter - Liz Ruiz CMA - 12/30/2023 4:26 PM EDT See ECHO review by Cardiology Tony Esparza PA-C 12/29/2023 8:21 PM EDT Back to [facility] for Mrs. Brewster Echo with mild aortic valve stenosis; findings are stable when compared to prior Chart reviewed. Recommend routine cardiology follow-up with Mrs. Brewster JIMMY * Telephone Encounter - Oskar Fuchs RN - 12/26/2023 1:28 PM EDT Study will be read, and results will available in the chart by mid afternoon on 12/28. Oskra Fuchs RN Cardiac Studies Nurse * Telephone [...] we should push back her intervention. Thanks, HM * Telephone Encounter - Radha Do CMA [...] cath placement under GA on 12/30 w/ Panda. Pt has not seen Cardiology since 04/2023. She was supposed to get an ECHO to monitor her aortic stenosis. Her ECHO from 2021 showed mild to moderate . Just wanted to see if you're fine w/ her proceeding w/ surgery next week? Ramon Sims MD Plesce, Marnie L, RN She should have a repeat TTE prior [...] Description 01/05/2024 2:00 PM EDT Home Visit [facility], [facility] [address] [address] [address] Connie Mccullough RN [address] [place] [address] 01/16/2024 9:45 AM EDT Office Visit UrologKimberly Diamond [address] [place] [address] Alfredo Panda MD [address] [place] [address] 01/26/2024 3:45 PM EDT Procedure Only Urology, [facility] [address] [place] [address] Alfredo Panda MD [address] [place] [address] 02/09/2024 9:00 AM EDT Home Visit [facility], [facility] 132 [facility] [place] [address] Kirby Valenzuela PA-C [address] [facility] [address] 03/02/2024 4:00 PM EDT Imaging Radiology, [address] [place] [address] 06/08/2024 6:00 PM EST Office [facility] [address] [place] [phone] Brian Domínguez MD [address] [place] [address] Scheduled Procedures Name Priority Associated Diagnoses Date/Ti [...] 06/10/2021, 08/29/2020, 08/01/2020 CKD PHOS USE SMARTSET 55350 10/24/202310/05, 02/18/2022, 02/17/2022, Additional history exists GFR 04/21/2024 10/21/2023, 07/08, 06/17/2023, Additional history exists Colonoscopy 05/20/2024 05/20/2014 Colorectal Cancer Screening 05/20/2024 HbA1c 06/11/2024 12/11/2023, 06/06, 10/23/2022, Additional history exists TSH 06/17/2024 06/17/2023, 05/08, 02/13/2023, Additional history exists Diabetic Foot Exam 10/15/2024 10/16/2023, 1 07/22/2019, 02/22/2019, Additional history exists Albumin/Creatinine Ratio 11/03/2024 024, 10/23/2022, 07/17/2022, Additional history exists CKD HGB USE SMARTSET 48782 12/10/202412/10, 08/04/2023, 08/04/2023, Additional history exists O2 [...] this encounter Medical Devices Implanted Type Area Boner Meat Device Identifier Shelf Expiration Date Model / Serial / Lot Jenna Rojas 6 M654g - [id number] Implanted:Qty: 3 on 02/15/2011 [place] [facility] [place]A: Chest DO NOT USE 01/15/2015 M654G / / [id number] Band [employer] 225-241 - [id number] Implanted:Qty: 1 on 02/15/2011 at [place] [facility] [place] N/A: Chest [employer] 225-241 / / [id number] Jenna Rojas 6 M654g - [id number] Implanted:Qty: 1 on 02/15/2011 at [place] [facility] [place] N/A: Chest DO NOT USE 07/21/2015 M654G / / [id number] documented as of this encounter Advance Directives Documents on File Type Date Recorded Patient Block Cutter Expl anation POLST 05/06/2018 POLST * Full [...] on File Name Relationship Healthcare Agent [facility] Communication Carolyn Ballard Adult Child Health Care Agent Care Teams Pediatric Anesthesiologist Relationship Specialty Start Date End Date Brian Domínguez MD [address] [place] [address] PCP - General Family Medicine 07/16/17 documented as of this encounter
--- OUTSIDE RECORDS SUMMARY | 2024-03-03 08:15 | External Medical Summary | Summary of Care ---
Author Name Unknown Organization [facility] Address [address] [place] [address] Phone [phone] Care Team Providers Care Cost Estimator Name Role Phone Brian Domínguez MD Primary Care Provider [phone]- [phone] Reason for Referral * Precert (Within 10 days (routine)) - Authorized Specialty Diagnoses / Procedures Referred By Contac t Referred To Contact Cardiac Studies Diagnoses Moderate aortic stenosis Heart palpitations Dizziness Procedures ECHO, COMPLETE (2D), TRANS-THORACIC Sobia Brewster PA-C [address] [place] [address] Referral ID Status Reason Start Date Expiration Date V isits Requested Visits Authorized [id number] Authorized Precert 12/29/2023 999 999 Reason for Visit * Reason Onset Date Comments Cardiology Study 12/29/2023 Encounter Details Date Type Department Care Team (Late st Contact Info) Description 12/29/2023 Telephone Cardiac Studies, [facility] [address] [place] [address] Sobia Brewster PA-C [address] [place] [address] Cardiology Study Allergies Active Allergy Reactions Criticality Noted Date Comments Propoxyphene Hcl Rash Low 10/29/2010 Fentanyl Diarrhea Low 04/26/2010 anxiety Methocarbamol Medium 10/05/2020 Other reaction(s): Delirium Methocarbamol Low 04/15/2007 Zolpidem Low 10/05/2020 Other reaction(s): Confusion documented as of this encounter (statuses as of 12/29/2023) Medications Medication Sig Dispensed Refills Start Date End Date Status venlafaxine XR (EFFEXOR XR) 150 MG [id number]:Dep ression Take 1 Cap by mouth daily. With food. 30 Cap 5 09/02/2016 Active Additional Information Patient taking differently: 225 mgOral Daily(AM),Taking a total of 225 mg, Indications: Takes 225 mg total every morning with food (150 mg tab + 75 mg tab), Reported on 03/03/2023 Blood Glucose Monitoring Suppl (Droplet GLUCOMETER) w/Device KITIndications:Unco ntrolled type 2 diabetes mellitus without complication, without long-term current use of insulin Use as directed. Use as directed once daily 1 Kit 11/18/2017 Active Blood Glucose Monitoring Suppl (QuikCycle VERIO) w/Device KIT Use as directed. Use as directed. 1 Kit 10/31/2018 Active Spacer/Aero-Holding Chambers WISAM Use with inhaler. Wheezing/bronchitis . 1 Device 04/08/2019 Active Lancet Devices (Animatu MultimediaUCH DELICA LANCING DEV) MISC Use four times [...] Oral Tablet (Demadex)Indication s:Atherosclerotic heart disease of [place] coronary artery with other forms of angina [...] minutes 25 Tablet 5 10/16/2023 Active Nystatin 001150 UNIT/GM External Powder (Nystop)Indications :Candidal intertrigo Apply topically to affected area 3 times a day. Apply to right breast until rash resolved. 30 g 10/16/2023 Active Nystatin 791014 UNIT/ML Mouth/Throat Suspension SWISH AND SWALLOW 5ML IN THE MORNING AND 5ML AT NOON AND 5 ML IN THE EVENING AND 5ML BEFORE BEDTIME, FOR THRUSH 240 mL 1 10/16/2023 Active Metoprolol Succinate ER 25 MG Oral Tablet Extended Release 24 Hour (toPROL XL)Indications:HTN, goal below 130/80 TAKE 1 TABLET BY MOUTH EVERY MORNING 90 Tablet 10/25/2023 Active Vitamin D (Ergocalciferol) 1.25 MG (09959 UT) Oral Capsule (Drisdol)Indication s:Vitamin D deficiency [...] for 10 days. 20 Capsule 12/24/2023 01/03/20 Active Additional Information Patient not taking.Reported on 12/24/2023 documented as of this encounter (statuses as of 12/29/2023) Active Problems Problem Noted Date Diagnosed Date [...] mg daily Coronary artery disease invo lving [place] coronary artery of [place] heart without angina pectoris 11/15/2021 Last Assessment & Plan: Stable. No angina -continue toprol, ASA and statin Seasonal allergies 11/15/2021 Recurrent UTI 10/07/2021 Last Assessment & Plan: Followed by urology Pt is supposed to be on methenamine--will need to clarify with dgt that she is giving this. 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/2014 manager long term care current use of ant [...] as of this encounter (statuses as of 12/29/2023) Immunizations Name Administration Dates Next Due COVID-19 [...] Department Care Team (Latest Contact Info) Description 12/29/2023 11:00 AM EDT Cardiac Studies Cardiac Studies, [facility] [address] [place] [address] 12/31/2023 3:28 PM EDT Hospital Encounter OR [facility], Operating Room, [facility] - 4th Floor [address] [place] [address] Alfredo Panda MD [address] [place] [address] 12/31/2023 3:28 PM EDT - 12/31/2023 4:30 PM EDT Surgery OR [facility], Operating Room, [facility] - 4th Floor [address] [place] [address] Alfredo Panda MD [address] [place] [address] CYSTOSTOMY WITH DRAINAGE OF BLADDER 01/05/2024 2:00 PM EDT Home Visit [facility] [address] [place] [address] Connie Mccullough, RN [address] [place] [address] 01/16/2024 9:45 AM EDT Office Visit Urology Kimberly Harmon [address] [place] [address] Alfredo Panda MD [address] [place] [address] 01/26/2024 3:00 PM EDT Procedure Only Urology, [facility] 132 [facility] [place] [address] Alfredo Panda MD [address] [place] [address] 02/09/2024 9:00 AM EDT Home Visit [facility], [facility] 132 [facility] [place] [address] Kirby Valenzuela PA-C 132 [facility] [place] [address] 03/02/2024 4:00 PM EDT Imaging Radiology, [address] [place] [address] 06/08/2024 6:00 PM EST Office Visit [facility] [address] [place] [phone] Brian Domínguez MD [address] [place] [address] Scheduled Orders Name Type Priority Associated Diagnoses Orde r Schedule ECHO, COMPLETE (2D), TRANS-THORACIC Echocardiology Routine Moderate aortic stenosis Heart palpitations Dizziness Expected: 12/29/2023, Expires: 06/29/2024 Scheduled Procedures Name Priority Associated Diagnoses Date/Ti [...] Additional history exists COVID-19 Vaccine ( - 2022- season) 2023 06/10/2021, 08/29/2020, 08/01/2020 CKD PHOS USE SMARTSET 82417 10/24/202310/05, 02/18/2022, 02/17/2022, Additional history exists GFR 04/21/2024 10/21/2023, 07/08, 06/17/2023, Additional history exists Colonoscopy 05/20/2024 05/20/2014 Colorectal Cancer Screening 05/20/2024 HbA1c 06/11/2024 12/11/2023, 06/06, 10/23/2022, Additional history exists TSH 06/17/2024 06/17/2023, 05/08, 02/13/2023, Additional history exists Diabetic Foot Exam 10/15/2024 10/16/2023, 1 07/22/2019, 02/22/2019, Additional history exists Albumin/Creatinine Ratio 11/03/2024 024, 10/23/2022, 07/17/2022, Additional history exists CKD HGB USE SMARTSET 16524 12/10/202412/10, 08/04/2023, 08/04/2023, Additional history exists O2 [...] this encounter Medical Devices Implanted Type Area Front Of House Manager Device Identifier Shelf Expiration Date Model / Serial / Lot Sut Steel 6 M654g - [id number] Implanted:Qty: 3 on 02/15/2011 at [place] [facility] [place] N/A: Chest DO NOT USE 01/15/2015 M654G / / [id number] Band Magdy 225-241 - [id number] Implanted:Qty: 1 on 02/15/2011 at [place] [facility] N/A: Chest [employer] 225-241 / / [id number] Sut Steel 6 M654g - [id number] Implanted:Qty: 1 on 02/15/2011 at [place] [facility] [place] N/A: Chest DO NOT USE 07/21/2015 M654G / / [id number] documented as of this encounter Visit Diagnoses Diagnosis Urge incontinence- Primary Moderate aortic stenosis- Primary Aortic valve disorders Heart palpitations Palpitations Dizziness Dizziness and giddiness Urge incontinence documented in this encounter Advance Directives Documents on File Type Date Recorded Patient Business Account Executive Expl anation POLST 05/06/2018 POLST * Full [...] Healthcare Agent [facility] Communication Carolyn Ballard Adult Child Health Care Agent Care Teams Cost Estimator Relationship Specialty Start Date End Date Brian Domínguez MD [address] [place] [address] PCP - General Family Medicine 07/16/17 documented as of this encounter
--- OUTSIDE RECORDS SUMMARY | 2024-03-03 08:15 | External Medical Summary | Summary of Care ---
Author Name Unknown Organization [facility] Address [address] [place] [facility] [place] [address] Phone [phone] Care Team Providers Care Director Dance Name Role Phone Brian Domínguez MD Primary Care Provider +1- [phone] Reason for Visit * Reason Onset Date Comments Advice 12/30/2023 Ney Encounter Details Date Type Department Care Team (Late st Contact Info) Description 12/30/2023 Telephone Cardiology, [facility] [address] [place] [address] Sobia Brewster PA-C [address] [place] [address] Advice (Ney) Allergies Active Allergy Reactions Criticality Noted Date Comments Propoxyphene Hcl Rash Low 10/29/2010 Fentanyl Diarrhea Low 04/26/2010 anxiety Methocarbamol Medium 10/05/2020 Other reaction(s): Delirium Methocarbamol Low 04/15/2007 Zolpidem Low 10/05/2020 Other reaction(s): Confusion documented as of this encounter (statuses as of 12/30/2023) Medications Medication Sig Dispensed Refills Start Date End Date Status venlafaxine XR (EFFEXOR XR) 150 MG EC86Txvirqlkszl:Dep ression Take 1 Cap by mouth daily. [...] Kit 11/18/2017 Active Blood Glucose Monitoring Suppl (Drop Messages VERIO) w/Device KIT Use as directed. Use as directed. 1 Kit 10/31/2018 Active Spacer/Aero-Holding Chambers WISAM Use with inhaler. Wheezing/bronchitis . 1 Device 04/08/2019 Active Lancet Devices (World EnergyTOUCH DELICA LANCING DEV) MISC Use four times [...] Tablet (Demadex)Indication s:Atherosclerotic heart disease of [place] coronary artery with other forms of angina [...] minutes 25 Tablet 5 10/16/2023 Active Nystatin 580738 UNIT/GM External Powder (Nystop)Indications :Candidal intertrigo Apply topically to affected area 3 times a day. Apply to right breast until rash resolved. 30 g 10/16/2023 Active Nystatin 484076 UNIT/ML Mouth/Throat Suspension SWISH AND SWALLOW 5ML IN THE MORNING AND 5ML AT NOON AND 5 ML IN THE EVENING AND 5ML BEFORE BEDTIME, FOR THRUSH 240 mL 1 10/16/2023 Active Metoprolol Succinate ER 25 MG Oral Tablet Extended Release 24 Hour (toPROL XL)Indications:HTN, goal below 130/80 TAKE 1 TABLET BY MOUTH EVERY MORNING 90 Tablet 10/25/2023 Active Vitamin D (Ergocalciferol) 1.25 MG (71611 UT) Oral Capsule (Drisdol)Indication s:Vitamin D deficiency [...] mg daily Coronary artery disease invo lving [place] coronary artery of [place] heart without angina pectoris 11/15/2021 Last Assessment & Plan: Stable. No angina -continue toprol, ASA and statin Seasonal allergies 11/15/2021 Recurrent UTI 10/07/2021 Last Assessment & Plan: Followed by urology Pt is supposed to be on methenamine--will need to clarify with dgt that she is giving this. Pt also to see uro-operations systems specialist and ID Type 2 diabetes mellitus [...] 01/16/22 Moderate aortic stenosis 05/06/2018 Anxiety 08/05/2017 Jqhlcao-Nnezc-Npbrl disease 06/27/2015 Last Assessment & Plan: Frequent [...] liver 05/06/2018 Atherosclerotic heart diseas e of [place] coronary artery with other forms of angina [...] stenosis 10/31/2010 08/28/2018 Acute coronary syndrome 10/30/201001/04 [place] Research Other*[id number] 02/02/2010 04/18/2014 Overview: [place] Registry, Dr Joel Kwon PI Obesity, morbid [...] term care social worker current use of ant icoagulant therapy 06/17/2006 [...] encounter Miscellaneous Notes * Telephone Encounter - Kalyn Pugh OSA - 12/30/2023 8:42 AM EDT Person calling: Carolyn Relationship to patient: Daughter Number to return call: [phone] Reason for call(brief): Test results Pharmacy: na Provider Name: Ney Detailed message to office:Patients daughter calling to get test results. The patient is having surgery tomorrow 12/30 and would like to go over test results before her surgery. I did make a follow upappt this coming Monday 01/01 with Haydee Pop due to no availability with Sobia Ney, patientwanted to be see sooner with a different provider. documented in this encounter Plan of Treatment Upcoming Encounters Date Type Department Care Team (Latest Contact Info) Description 12/31/2023 3:28 PM EDT Hospital Encounter OR [facility], Operating Room, [facility] - 4th Floor [address] [place] [address] Alfredo Panda MD [address] [place] [address] 12/31/2023 3:28 PM EDT - 12/31/2023 4:30 PM EDT Surgery OR [facility], Operating Room, [facility] Floor [address] [place] [address] Alfredo Panda MD [address] [place] [address] CYSTOSTOMY WITH DRAINAGE OF BLADDER 01/02/2024 2:30 PM EDT Office Visit Cardiology, [facility] [address] [place] [address] Haydee Pop CRNP [address] [place] [address] 01/05/2024 2:00 PM EDT [facility] Visit [facility], [facility] [address] [place] [address] Connie Mccullough RN [address] [place] [address] 01/16/2024 9:45 AM EDT Office Visit Urology Kimberly Harmon [address] [place] [address] Alfredo Panda MD [address] [place] [address] 01/26/2024 3:00 PM EDT Procedure Only Urology, [facility] [address] [place] [address] Aflredo Panda MD [address] [place] [address] 02/09/2024 9:00 AM EDT [facility] Visit [facility], [facility] [place] [address] Kirby Valeznuela PA-C [address] [place] [address] 03/02/2024 4:00 PM EDT Imaging Radiology, [address], [place] [address] 06/08/2024 6:00 PM EST [facility] [address] [facility] [phone] Brian Domínguez MD [address] [place] [facility] [place] [address] Scheduled Procedures Name Priority Associated Diagnoses Date/Ti [...] 06/10/2021, 08/29/2020, 08/01/2020 CKD PHOS USE SMARTSET 85438 10/24/202310/05, 02/18/2022, 02/17/2022, Additional history exists GFR 04/21/2024 10/21/2023, 07/08, 06/17/2023, Additional history exists Colonoscopy 05/20/2024 05/20/2014 Colorectal Cancer Screening 05/20/2024 HbA1c 06/11/2024 12/11/2023, 06/06, 10/23/2022, Additional history exists TSH 06/17/2024 06/17/2023, 05/08, 02/13/2023, Additional history exists Diabetic Foot Exam 10/15/2024 10/16/2023, 1 07/22/2019, 02/22/2019, Additional history exists Albumin/Creatinine Ratio 11/03/2024 024, 10/23/2022, 07/17/2022, Additional history exists CKD HGB USE SMARTSET 34097 12/10/202412/10, 08/04/2023, 08/04/2023, Additional history exists O2 [...] this encounter Medical Devices Implanted Type Area Deal Architect Device Identifier Shelf Expiration Date Model / Serial / Lot Sut Steel 6 M654g - [id number] [place] [facility] [place]: Chest DO NOT USE 01/15/2015 M654G / / [id number] Band Magdy 225-241 - [id number] Implanted:Qty: 1 on 02/[place]2011 [place] [facility] [place]: Chest [employer] 225-241 / / [id number] Sut Steel 6 M654g - [id number] Implanted:Qty: 1 on 02/15/2011 [place] [facility] [place]: Chest DO NOT USE 07/21/2015 M654G / / [id number] documented as of this encounter Advance Directives Documents on File Type Date Recorded Patient Recruitment Manager Expl cheyanneion DURAN 05/06/2018 POL * Full Code (Latest [...] Healthcare Agent [facility] Communication Carolyn Elio Adult Child Health Care Agent Care Teams Director Dance Relationship Specialty Start Date End Date Brian Domínguez MD [address] [place] [address] PCP - General Family Medicine 07/16/17 documented as of this encounter
--- OUTSIDE RECORDS SUMMARY | 2024-03-03 08:15 | External Medical Summary | Summary of Care ---
Author Name Unknown Organization [facility] Address [address] [place] [address] Phone [phone] Care Team Providers Care Trim Operator Name Role Phone Brian Domínguez MD Primary Care Provider +1- [phone] Reason for Visit * Reason Onset Date Comments Other 12/26/2023 Encounter Details Date Type Department Care Team (Late st Contact Info) Description 12/26/2023 Telephone Pre Surgery Center, [facility] 400 [facility] [place] [address] Alfredo Panda MD [address] [address] Other Allergies Active Allergy Reactions Criticality Noted Date Comments Propoxyphene Hcl Rash Low 10/29/2010 Fentanyl Diarrhea Low 04/26/2010 anxiety Methocarbamol Medium 10/05/2020 Other reaction(s): Delirium Methocarbamol Low 04/15/2007 Zolpidem Low 10/05/2020 Other reaction(s): Confusion documented as of this encounter (statuses as of 12/26/2023) Medications Medication Sig Dispensed Refills Start Date End Date Status venlafaxine XR (EFFEXOR XR) 150 MG OQ45Oewiuurrmmk:Dep ression Take 1 Cap by mouth daily. [...] Kit 11/18/2017 Active Blood Glucose Monitoring Suppl (SeriouslyTOUCH VERIO) w/Device KIT Use as directed. Use [...] Oral Tablet (Demadex)Indication s:Atherosclerotic heart disease of [place] coronary artery with other forms of angina [...] minutes 25 Tablet 5 10/16/2023 Active Nystatin 578253 UNIT/GM External Powder (Nystop)Indications :Candidal intertrigo Apply topically to affected area 3 times a day. Apply to right breast until rash resolved. 30 g 10/16/2023 Active Nystatin 351603 UNIT/ML Mouth/Throat Suspension SWISH AND SWALLOW 5ML IN THE MORNING AND 5ML AT NOON AND 5 ML IN THE EVENING AND 5ML BEFORE BEDTIME, FOR THRUSH 240 mL 1 10/16/2023 Active Metoprolol Succinate ER 25 MG Oral Tablet Extended Release 24 Hour (toPROL XL)Indications:HTN, goal below 130/80 TAKE 1 TABLET BY MOUTH EVERY MORNING 90 Tablet 10/25/2023 Active Vitamin D (Ergocalciferol) 1.25 MG (49639 UT) Oral Capsule (Drisdol)Indication s:Vitamin D deficiency [...] as of this encounter (statuses as of 12/26/2023) Active Problems Problem Noted Date Diagnosed Date [...] mg daily Coronary artery disease invo lving b[place] coronary artery of barrow heart without angina pectoris 11/15/2021 Last Assessment & Plan: Stable. No angina -continue toprol, ASA and statin Seasonal allergies 11/15/2021 Recurrent UTI 10/07/2021 Last Assessment & Plan: Followed by urology Pt is supposed to be on methenamine--will need to clarify with dgt that she is giving this. Pt also to see uro-electrogalvanizing machine operator and ID Type 2 diabetes [...] incontinence 03/27/2021 custodial (current) use of insulin 09/29/2019 Diabetic gastroparesis [...] 01/16/22 Moderate aortic stenosis 05/06/2018 Anxiety 08/05/2017 Lvieobc-Fmlxk-Zzamu disease 06/27/2015 Last Assessment & Plan: Frequent [...] as of this encounter (statuses as of 12/26/2023) Resolved Problems Problem Noted Date Diagnosed Date [...] liver 05/06/2018 Atherosclerotic heart diseas e of b[place] coronary artery with other forms of angina [...] stenosis 10/31/2010 08/28/2018 Acute coronary syndrome 10/30/201001/04 [place] Research Other*[id number] 02/02/2010 04/18/2014 Overview: [place] Registry, Dr Joel [...] Duplicate Protocol #2. 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 of ant icoagulant therapy [...] as of this encounter (statuses as of 12/26/2023) Immunizations Name Administration Dates Next Due COVID-19 [...] encounter Miscellaneous Notes * Telephone Encounter - Oskar Fuchs RN [...] 11:00 AM EDT Cardiac Studies Cardiac Studies, [facility] 132 [facility] [place] [address] 12/31/2023 3:28 PM EDT Hospital Encounter OR [facility], Operating Room, [facility] - 4th Floor 400 [facility] [place] [address] Alfredo Panda MD [address] [place] [address] 12/31/2023 3:28 PM EDT - 12/31/2023 4:30 PM EDT Surgery OR [facility], Operating Room, [facility] [address] [facility] [address] Alfredo Panda MD [address] [place] [address] CYSTOSTOMY WITH DRAINAGE OF BLADDER 01/05/2024 2:00 PM EDT [facility] Visit [facility], [facility] 132 [facility] [place] [address] Connie Mccullough, RN 132 [facility] [place] [address] 01/16/2024 9:45 AM EDT Office Visit Urology Kimberly Harmon [address] [place] [address] Alfredo Panda MD [address] [place] [address] 01/26/2024 3:00 PM EDT Procedure Only Urology, [facility] 132 [facility] [place] [address] Alfredo Panda MD [address] [place] [address] 02/09/2024 9:00 AM EDT [facility] 132 [facility] [place] [address] Kirby Valenzuela PA-C [address] [facility] [place] [address] 03/02/2024 4:00 PM EDT Imaging Radiology, [address] [place] [address] 06/08/2024 6:00 PM EST [facility] [address] [place] [address] Brian Domínguez MD [address] [place] [address] Scheduled Procedures Name Priority Associated Diagnoses Date/Ti [...] 06/10/2021, 08/29/2020, 08/01/2020 CKD PHOS USE SMARTSET 47729 10/24/202310/05, 02/18/2022, 02/17/2022, Additional history exists GFR 04/21/2024 10/21/2023, 07/08, 06/17/2023, Additional history exists Colonoscopy 05/20/2024 05/20/2014 Colorectal Cancer Screening 05/20/2024 HbA1c 06/11/2024 12/11/2023, 06/06, 10/23/2022, Additional history exists TSH 06/17/2024 06/17/2023, 05/08, 02/13/2023, Additional history exists Diabetic Foot Exam 10/15/2024 10/16/2023, 1 07/22/2019, 02/22/2019, Additional history exists Albumin/Creatinine Ratio 11/03/2024 024, 10/23/2022, 07/17/2022, Additional history exists CKD HGB USE SMARTSET 49894 12/10/202412/10, 08/04/2023, 08/04/2023, Additional history exists O2 [...] this encounter Medical Devices Implanted Type Area Street Roller Engineer Device Identifier Shelf Expiration Date Model / Serial / Lot Sut Steel 6 M654g - [id number] [place] [facility] [place] [facility] [place]: Chest DO NOT USE 01/15/2015 M654G / / [id number] Band Magdy 225-241 - [id number] Implanted:Qty: 1 on 02/15/2011 [place] [facility] [place]: Chest [employer] 225-241 / / [id number] Sut Steel 6 M654g - [id number] Implanted:Qty: 1 on 02[place]2011 [place] [facility] [place]: Chest DO NOT USE 07/21/2015 M654G / / [id number] documented as of this encounter Advance Directives Documents on File Type Date Recorded 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
--- OUTSIDE RECORDS SUMMARY | 2024-03-03 08:15 | External Medical Summary | Summary of Care ---
Author Name Unknown Organization [facility] Address [address] [facility] [place] [address] Phone [phone] Care Team Providers Care Adolescent Psychiatrist Name Role Phone Brian Domínguez MD Primary Care Provider [phone]- [phone] Reason for Visit * Reason Onset Date Comments Advice 12/30/2023 Ney Encounter Details Date Type Department Care Team (Late st Contact Info) Description 12/30/2023 Telephone Cardiology, [facility] [address] [place] [address] Sobia Brewster PA-C [address] [place] [address] Advice (Ney) Allergies Active Allergy Reactions Criticality Noted Date Comments Propoxyphene Hcl Rash Low 10/29/2010 Fentanyl Diarrhea Low 04/26/2010 anxiety Methocarbamol Medium 10/05/2020 Other reaction(s): Delirium Methocarbamol Low 04/15/2007 Zolpidem Low 10/05/2020 Other reaction(s): Confusion documented as of this encounter (statuses as of 12/30/2023) Medications Medication Sig Dispensed Refills Start Date End Date Status venlafaxine XR (EFFEXOR XR) 150 MG LR64Hueelxtqdeg:Dep ression Take 1 Cap by mouth daily. [...] Kit 11/18/2017 Active Blood Glucose Monitoring Suppl (NextVR VERIO) w/Device KIT Use as directed. Use as directed. 1 Kit 10/31/2018 Active Spacer/Aero-Holding Chambers WISAM Use with inhaler. Wheezing/bronchitis . 1 Device 04/08/2019 Active Lancet Devices (BringShareTOUCH DELICA LANCING DEV) MISC Use four times [...] INSTRUCTIONS Please arrange for as needed Home care home visit for obtaining straight cath urine [...] minutes 25 Tablet 5 10/16/2023 Active Nystatin 582412 UNIT/GM External Powder (Nystop)Indications :Candidal intertrigo Apply topically to affected area 3 times a day. Apply to right breast until rash resolved. 30 g 10/16/2023 Active Nystatin 003934 UNIT/ML Mouth/Throat Suspension SWISH AND SWALLOW 5ML IN THE MORNING AND 5ML AT NOON AND 5 ML IN THE EVENING AND 5ML BEFORE BEDTIME, FOR THRUSH 240 mL 1 10/16/2023 Active Metoprolol Succinate ER 25 MG Oral Tablet Extended Release 24 Hour (toPROL XL)Indications:HTN, goal below 130/80 TAKE 1 TABLET BY MOUTH EVERY MORNING 90 Tablet 10/25/2023 Active Vitamin D (Ergocalciferol) 1.25 MG (07774 UT) Oral Capsule (Drisdol)Indication s:Vitamin D deficiency [...] mg daily Coronary artery disease invo lving [place] coronary artery of [place] heart without angina pectoris 11/15/2021 Last Assessment & Plan: Stable. No angina -continue toprol, ASA and statin Seasonal allergies 11/15/2021 Recurrent UTI 10/07/2021 Last Assessment & Plan: Followed by urology Pt is supposed to be on methenamine--will need to clarify with dgt that she is giving this. Pt also to see uro-plant reliability engineer and ID Type 2 diabetes mellitus [...] incontinence 03/27/2021 FPC (current) use of insulin 09/29/2019 Diabetic gastroparesis [...] 01/16/22 Moderate aortic stenosis 05/06/2018 Anxiety 08/05/2017 Gxpqftz-Mrtnm-Lcccy disease 06/27/2015 Last Assessment & Plan: Frequent [...] 10/31/2010 08/28/2018 Acute coronary syndrome 10/30/201001/04 [place] Research Other*[id number] 02/02/2010 04/18/2014 Overview: [place] Registry, Dr Joel Kwon PI Obesity, morbid [...] Duplicate Protocol #2. 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/2014 meterman current use of ant icoagulant therapy 06/17/2006 [...] encounter Miscellaneous Notes * Telephone Encounter - Mukul Almendarez RN - 12/30/2023 10:40 AM EDT I called and and spoke to patient's daughter Carolyn. Reviewed the echo results with her. Explained that the anesthesia department will look at everything before surgery. * Telephone Encounter - Kalyn Pugh OSA - 12/30/2023 8:42 AM EDT Person calling: Carolyn Relationship to patient: Daughter Number to return call: [phone] Reason for call(brief): Test results Pharmacy: na Provider Name: Ney Detailed message to office:Patients daughter calling to get test results. The patient is having surgery tomorrow 12/30 and would like to go over test results before her surgery. I did make a follow upappt this coming Monday 01/01 with Haydee Pop due to no availability with Sobia Brewster, patientwanted to be see sooner with a different provider. documented in this encounter Plan of Treatment Upcoming Encounters Date Type Department Care Team (Latest Contact Info) Description 12/31/2023 3:28 PM EDT Hospital Encounter OR [facility], Operating Room, [facility] - 4th Floor [address] [place] [address] Alfredo Panda MD [address] [place] [address] 12/31/2023 3:28 PM EDT - 12/31/2023 4:30 PM EDT Surgery OR [facility], Operating Room, [facility] - 4th Floor [address] [place] [address] Alfredo Panda MD [address] [place] [address] CYSTOSTOMY WITH DRAINAGE OF BLADDER 01/05/2024 2:00 PM EDT [facility] [address] [place] [address] Connie Mccullough RN [address] [place] [address] 01/16/2024 9:45 AM EDT Office Visit Urology Kimberly Harmon [address] [place] [address] Alfredo Panda MD [address] [place] [address] 01/26/2024 3:45 PM EDT Procedure Only Urology, [facility] [address] [place] [address] Alfredo Panda MD [address] [place] [address] 02/09/2024 9:00 AM EDT [facility], [facility] [address] [place] [address] Kirby Valenzuela PA-C [address] [place] [address] 03/02/2024 4:00 PM EDT Imaging Radiology, [address], [place] [address] 06/08/2024 6:00 PM EST [facility] [address] [facility] [id number] Brian Domínguez MD [address] [place] [facility] [place] [address] Scheduled Procedures Name Priority Associated Diagnoses Date/Ti [...] 06/10/2021, 08/29/2020, 08/01/2020 CKD PHOS USE SMARTSET 76237 10/24/202310/05, 02/18/2022, 02/17/2022, Additional history exists GFR 04/21/2024 10/21/2023, 07/08, 06/17/2023, Additional history exists Colonoscopy 05/20/2024 05/20/2014 Colorectal Cancer Screening 05/20/2024 HbA1c 06/11/2024 12/11/2023, 06/06, 10/23/2022, Additional history exists TSH 06/17/2024 06/17/2023, 05/08, 02/13/2023, Additional history exists Diabetic Foot Exam 10/15/2024 10/16/2023, 1 07/22/2019, 02/22/2019, Additional history exists Albumin/Creatinine Ratio 11/03/2024 024, 10/23/2022, 07/17/2022, Additional history exists CKD HGB USE SMARTSET 50640 12/10/202412/10, 08/04/2023, 08/04/2023, Additional history exists O2 [...] encounter Medical Devices Implanted Type Area Center Rep Device Identifier Shelf Expiration Date Model / Serial / Lot Sut Steel 6 M654g - [id number] [place]ed:Q[place] 3 [place] [facility] [place] Chest DO NOT USE 01/15/2015 M654G / / [id number] Band Magdy 225-241 - [id number] Implanted:Qty: 1 on 02[place]15/2011 [place] [facility] [place]: Chest [employer] 225-241 / / [id number] Sut Steel 6 M654g - [id number] Implanted:Qty: 1 on 02/15/2011 [place] [facility] [place]: Chest DO NOT USE 07/21/2015 M654G / / [id number] documented as of this encounter Advance Directives Documents on File Type Date Recorded Patient Long Term Care Phlebotomist Expl anation DURAN 05/06/2018 POL * Full Code (Latest [...] Adult Child Health Care Agent Care Teams Adolescent Psychiatrist Relationship Specialty Start Date End Date Brian Domínguez MD [address] [place] [address] PCP - General Family Medicine 07/16/17 documented as of this encounter
--- OUTSIDE RECORDS SUMMARY | 2024-03-03 08:15 | External Medical Summary | Summary of Care ---
Author Name Unknown Organization [facility] Address [address] [place] [address] Phone [phone] Care Team Providers Care Power Chisel Operator Name Role Phone Brian Domínguez MD Primary Care Provider [phone]- [phone] Reason for Visit * Reason Onset Date Comments Advice 12/30/2023 Ney Encounter Details Date Type Department Care Team (Late st Contact Info) Description 12/30/2023 Telephone Cardiology, [facility] [address] [place] [address] Sobia Brewster PA-C [address] [place] [address] Advice (Ney) Allergies Active Allergy Reactions Criticality Noted Date Comments Propoxyphene Hcl Rash Low 10/29/2010 Fentanyl Diarrhea Low 04/26/2010 anxiety Methocarbamol Medium 10/05/2020 Other reaction(s): Delirium Methocarbamol Low 04/15/2007 Zolpidem Low 10/05/2020 Other reaction(s): Confusion documented as of this encounter (statuses as of 12/30/2023) Medications Medication Sig Dispensed Refills Start Date End Date Status venlafaxine XR (EFFEXOR XR) 150 MG BW55Swczxldnaee:Dep ression Take 1 Cap by mouth daily. [...] Kit 11/18/2017 Active Blood Glucose Monitoring Suppl (Peak VERIO) w/Device KIT Use as directed. Use as directed. 1 Kit 10/31/2018 Active Spacer/Aero-Holding Chambers WISAM Use with inhaler. Wheezing/bronchitis . 1 Device 04/08/2019 Active Lancet Devices (MocoSpaceTOUCH DELICA LANCING DEV) MISC Use four times [...] Oral Tablet (Demadex)Indication s:Atherosclerotic heart disease of [place] coronary artery with other forms of angina [...] minutes 25 Tablet 5 10/16/2023 Active Nystatin 609639 UNIT/GM External Powder (Nystop)Indications :Candidal intertrigo Apply topically to affected area 3 times a day. Apply to right breast until rash resolved. 30 g 10/16/2023 Active Nystatin 423201 UNIT/ML Mouth/Throat Suspension SWISH AND SWALLOW 5ML IN THE MORNING AND 5ML AT NOON AND 5 ML IN THE EVENING AND 5ML BEFORE BEDTIME, FOR THRUSH 240 mL 1 10/16/2023 Active Metoprolol Succinate ER 25 MG Oral Tablet Extended Release 24 Hour (toPROL XL)Indications:HTN, goal below 130/80 TAKE 1 TABLET BY MOUTH EVERY MORNING 90 Tablet 10/25/2023 Active Vitamin D (Ergocalciferol) 1.25 MG (72410 UT) Oral Capsule (Drisdol)Indication s:Vitamin D deficiency [...] mg daily Coronary artery disease invo lving [place] coronary artery of [place] heart without angina pectoris 11/15/2021 Last Assessment & Plan: Stable. No angina -continue toprol, ASA and statin Seasonal allergies 11/15/2021 Recurrent UTI 10/07/2021 Last Assessment & Plan: Followed by urology Pt is supposed to be on methenamine--will need to clarify with dgt that she is giving this. Pt also to see uro-tree pruner and ID Type 2 diabetes mellitus wit [...] 01/16/22 Moderate aortic stenosis 05/06/2018 Anxiety 08/05/2017 Tzwailf-Wtapr-Xbnnm disease 06/27/2015 Last Assessment & Plan: Frequent [...] liver 05/06/2018 Atherosclerotic heart diseas e of [place] coronary artery with other forms of angina [...] stenosis 10/31/2010 08/28/2018 Acute coronary syndrome 10/30/201001/04 [place] Research Other*[id number] 02/02/2010 04/18/2014 Overview: [place] Registry, Dr Joel [...] #2. 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, [facility], [facility] [address] [place] [address] Alfredo Panda MD [address] [place] [address] 12/31/2023 3:28 PM EDT - 12/31/2023 4:30 PM EDT Surgery OR [facility], Operating Room, [address] [place] [address] Alfredo Panda MD [address] [place] [address] CYSTOSTOMY WITH DRAINAGE OF BLADDER 01/05/2024 2:00 PM EDT Home Visit [facility] [address] [place] [address] Connie Mccullough, RN [address] [place] [address] 01/16/2024 9:45 AM EDT Office Visit Urology [place] [address] [place] [address] Alfredo Panda MD [address] [place] [address] 01/26/2024 3:45 PM EDT Procedure Only Urology, [facility] [address] [place] [address] Alfredo Panda MD [address] [place] [address] 02/09/2024 9:00 AM EDT [facility] Visit [facility] [place], [facility] [address] [facility] [place] [address] Kirby Valenzuela PA-C [address] [facility] [place] [address] 03/02/2024 4:00 PM EDT Imaging Radiology, [address] [address] 06/08/2024 6:00 PM EST Office Visit [facility] [address] [place] [id number] Brian Domínguez MD [address] [place] [address] Scheduled Procedures Name Priority Associated Diagnoses Date/Ti [...] 06/10/2021, 08/29/2020, 08/01/2020 CKD PHOS USE SMARTSET 42498 10/24/202310/05, 02/18/2022, 02/17/2022, Additional history exists GFR 04/21/2024 10/21/2023, 07/08, 06/17/2023, Additional history exists Colonoscopy 05/20/2024 05/20/2014 Colorectal Cancer Screening 05/20/2024 HbA1c 06/11/2024 12/11/2023, 06/06, 10/23/2022, Additional history exists TSH 06/17/2024 06/17/2023, 05/08, 02/13/2023, Additional history exists Diabetic Foot Exam 10/15/2024 10/16/2023, 1 07/22/2019, 02/22/2019, Additional history exists Albumin/Creatinine Ratio 11/03/2024 024, 10/23/2022, 07/17/2022, Additional history exists CKD HGB USE SMARTSET 61177 12/10/202412/10, 08/04/2023, 08/04/2023, Additional history exists O2 [...] this encounter Medical Devices Implanted Type Area Chiropractic Care Device Identifier Shelf Expiration Date Model / Serial / Lot Sut Steel 6 M654g - [id number] [place]ed:Q[place] 3 [place] [facility] [place] Chest DO NOT USE 01/15/2015 M654G / / [id number] Band Magdy 225-241 - [id number] Implanted:Qty: 1 on 02/15/2011 [place] [facility] [place]: Chest [employer] 225-241 / / [id number] Sut Steel 6 M654g - [id number] Implanted:Qty: 1 on 02[place]15/2011 [place] [facility] [place]: Chest DO NOT USE 07/21/2015 M654G / / [id number] documented as of this encounter Advance Directives Documents on File Type Date Recorded Patient Manager Power Expl anation POLST 05/06/2018 POLST * Full [...] Name Relationship Healthcare Agent [facility] p Communication Carolyn Ballard Adult Child Health Care Agent Care Teams Power Chisel Operator Relationship Specialty Start Date End Date Brian Domínguez MD [address] [place] [address] PCP - General Family Medicine 07/16/17 documented as of this encounter
--- OUTSIDE RECORDS SUMMARY | 2024-03-03 08:15 | External Medical Summary | Summary of Care ---
Author Name Unknown Organization [facility] Address [address] [place] [address] Phone [phone] Care Team Providers Care Nurse Substance Abuse Name Role Phone Brian Domínguez MD Primary Care Provider [phone]- [phone] Reason for Visit * Reason Onset Date Comments Encounter Created in Error 11/28/2023 Encounter Details Date Type Department Care Team (Late st Contact Info) Description 11/28/2023 Telephone [facility] [address] [place] [address] Brian Domínguez MD [address] [place] [address] Encounter Created in Error Allergies [...] Status venlafaxine XR (EFFEXOR XR) 150 MG EE58Wikdxwkxqdf:Dep ression Take 1 Cap by mouth daily. [...] Kit 11/18/2017 Active Blood Glucose Monitoring Suppl (Cogenta Systems VERIO) w/Device KIT Use as directed. Use as directed. 1 Kit 10/31/2018 Active Spacer/Aero-Holding Chambers WISAM Use with inhaler. Wheezing/bronchitis . 1 Device 04/08/2019 Active Lancet Devices (HourlyNerdTOUCH DELICA LANCING DEV) MISC Use four times [...] heart disease of [place] coronary artery with other forms of angina [...] minutes 25 Tablet 5 10/16/2023 Active Nystatin 082342 UNIT/GM External Powder (Nystop)Indications :Candidal intertrigo Apply topically to affected area 3 times a day. Apply to right breast until rash resolved. 30 g 10/16/2023 Active Nystatin 178152 UNIT/ML Mouth/Throat Suspension SWISH AND SWALLOW 5ML IN THE MORNING AND 5ML AT NOON AND 5 ML IN THE EVENING AND 5ML BEFORE BEDTIME, FOR THRUSH 240 mL 1 10/16/2023 Active Metoprolol Succinate ER 25 MG Oral Tablet Extended Release 24 Hour (toPROL XL)Indications:HTN, goal below 130/80 TAKE 1 TABLET BY MOUTH EVERY MORNING 90 Tablet 10/25/2023 Active Vitamin D (Ergocalciferol) 1.25 MG (47633 UT) Oral Capsule (Drisdol)Indication s:Vitamin D deficiency [...] Capsule before bedtime. 30 Capsule 11/26/2023 Active documented as of this encounter (statuses [...] mg daily Coronary artery disease invo lving [place] coronary artery of [place] heart without angina pectoris 11/15/2021 Last Assessment & Plan: Stable. No angina -continue toprol, ASA and statin Seasonal allergies 11/15/2021 Recurrent UTI 10/07/2021 Last Assessment & Plan: Followed by urology Pt is supposed to be on methenamine--will need to clarify with dgt that she is giving this. Pt also to see uro-building rental superintendent and ID Type 2 diabetes mellitus [...] intermediate card tender (current) use of insulin 09/29/2019 Diabetic [...] 01/16/22 Moderate aortic stenosis 05/06/2018 Anxiety 08/05/2017 Jbocndl-Xuame-Zqhcx disease 06/27/2015 Last Assessment & Plan: Frequent [...] liver 05/06/2018 Atherosclerotic heart diseas e of [place] coronary artery with other forms of angina [...] stenosis 10/31/2010 08/28/2018 Acute coronary syndrome 10/30/201001/04 [place] Research Other*[id number] 02/02/2010 04/18/2014 Overview: [place] Registry, Dr Joel [...] thrombosis 06/17/2006 01/21/2014 penitentiary current use of ant icoagulant therapy 06/17/2006 [...] 12/31/2023 3:28 PM EDT Hospital Encounter OR [facility], Operating Room, [facility] - 4th Floor [address] [place] [address] [place] [address] Alfredo Panda MD [address] [place] [address] 12/31/2023 3:28 PM EDT - 12/31/2023 4:30 PM EDT Surgery OR [facility], Operating Room, [facility] Floor [address] [place] [address] [place] [address] Alfredo Panda MD [address] [place] [address] CYSTOSTOMY WITH DRAINAGE OF BLADDER 01/05/2024 2:00 PM EDT Home Visit [facility] [address] [place] [address] Connie Mccullough, RN [address] [place] [address] 01/16/2024 9:45 AM EDT Office Visit Urology Kimberly Harmon [address] [place] [address] Alfredo Panda MD [address] [place] [address] 01/26/2024 3:45 PM EDT Procedure Only Urology, [facility] [address] [place] [address] Alfredo Panda MD [address] [place] [address] 02/09/2024 9:00 AM EDT [facility], [facility] [address] [facility] [place] [address] Kirby Valenzuela PA-C [facility] [address] 03/02/2024 4:00 PM EDT Imaging Radiology, [address] [place] [address] 06/08/2024 6:00 PM EST Office Visit [facility] [address] [place] [address] Brian Domínguez MD [address] [place] [address] Scheduled Procedures Name Priority Associated Diagnoses Date/Ti [...] 06/10/2021, 08/29/2020, 08/01/2020 CKD PHOS USE SMARTSET 06992 10/24/202310/05, 02/18/2022, 02/17/2022, Additional history exists GFR 04/21/2024 10/21/2023, 07/08, 06/17/2023, Additional history exists Colonoscopy 05/20/2024 05/20/2014 Colorectal Cancer Screening 05/20/2024 HbA1c 06/11/2024 12/11/2023, 06/06, 10/23/2022, Additional history exists TSH 06/17/2024 06/17/2023, 05/08, 02/13/2023, Additional history exists Diabetic Foot Exam 10/15/2024 10/16/2023, 1 07/22/2019, 02/22/2019, Additional history exists Albumin/Creatinine Ratio 11/03/2024 024, 10/23/2022, 07/17/2022, Additional history exists CKD HGB USE SMARTSET 05078 12/10/202412/10, 08/04/2023, 08/04/2023, Additional history exists O2 [...] this encounter Medical Devices Implanted Type Area Cyber Threat Analyst Device Identifier Shelf Expiration Date Model / Serial / Lot Sut Steel 6 M654g - [id number] Implanted:Q[place] 3 [place] [facility] [place] Chest DO NOT USE 01/15/2015 M654G / / [id number] Band Magdy 225-241 - [id number] Implanted:Qty: 1 on 02[place]2011 [place] [facility] [place]: Chest [employer] 225-241 / / [id number] Sut Steel 6 M654g - [id number] Implanted:Qty: 1 on 02[place]/2011 [place] [facility] [place]: Chest DO NOT USE 07/21/2015 M654G / / [id number] documented as of this encounter Advance Directives Documents on File Type Date Recorded Patient Security Professional Expl anation POLST 05/06/2018 POLST * Full [...] Adult Child Health Care Agent Care Teams Nurse Substance Abuse Relationship Specialty Start Date End Date Brian Domínguez MD [address] [place] [address] PCP - General Family Medicine 07/16/17 documented as of this encounter
--- OUTSIDE RECORDS SUMMARY | 2024-03-03 08:16 | External Medical Summary | Summary of Care ---
Author Name Unknown Organization [facility] Address [address] [place] [address] Phone [phone] Care Team Providers Care Band Saw Runner Name Role Phone Brian Domínguez MD Primary Care Provider [phone]- [phone] Reason for Visit * Reason Onset Date Comments Pre Cert/Prior Auth 12/23/2023 Xifaxan Encounter Details Date Type Department Care Team (Late st Contact Info) Description 12/23/2023 Telephone [facility] [address] [place] [address] Brian Domínguez MD [address] [place] [address] Pre Cert/Prior Auth (Xifaxan) Allergies [...] Status venlafaxine XR (EFFEXOR XR) 150 MG [id number]:De pression Take 1 Cap by mouth daily. With food. 30 Cap 5 09/02/19 17 Active Additional Information Patient taking differently: 225 mgOral Daily(AM),Taking a total of 225 mg, Indications: Takes 225 mg total every morning with food (150 mg tab + 75 mg tab), Reported on 03/03/2023 Blood Glucose Monitoring Suppl ([employer] GLUCOMETER) w/Device KITIndications:Unc ontrolled type 2 diabetes mellitus without complication, without long-term current use of insulin Use as directed. Use as directed once daily 1 Kit 11/19/19 18 Active Blood Glucose Monitoring Suppl ([facility] VERIO) w/Device KIT Use as directed. Use as directed. 1 Kit 11/01/19 19 Active Spacer/Aero-Holdin g Chambers WISAM Use with inhaler. Wheezing/bronchiti s. 1 Device 04/08/20 19 Active Lancet Devices ([facility] [facility] DELICA LANCING DEV) MISC Use four times [...] Oral Tablet (Demadex)Indicatio ns:Atherosclerotic heart disease of [place] coronary artery with other forms of angina [...] MEDICATIONS 90 Tablet 1 09/08/19 24 Active Trulicity 4.5 MG/0.5ML Subcutaneous Solution Pen-injector (Dulaglutide) inject 4.5mg under the skin once per week 6 mL 1 09/08/19 24 Active Additional Information Patient not taking.Reported [...] 25 Tablet 5 10/16/19 24 Active Nystatin 438725 UNIT/GM External Powder (Nystop)Indication s:Candidal intertrigo Apply topically to affected area 3 times a day. Apply to right breast until rash resolved. 30 g 10/16/19 24 Active Nystatin 018113 UNIT/ML Mouth/Throat Suspension SWISH AND SWALLOW 5ML [...] 24 Active Vitamin D (Ergocalciferol) 1.25 MG (15575 UT) Oral Capsule (Drisdol)Indicatio ns:Vitamin D deficiency [...] TORSEMIDE 90 Tablet 1 12/19/19 24 Active Nitrofurantoin Monohyd Macro 100 MG Oral [...] mg daily Coronary artery disease invo lving [place] coronary artery of [place] heart without angina pectoris 11/15/2021 Last Assessment & Plan: Stable. No angina -continue toprol, ASA and statin Seasonal allergies 11/15/2021 Recurrent UTI 10/07/2021 Last Assessment & Plan: Followed by urology Pt is supposed to be on methenamine--will need to clarify with dgt that she is giving this. 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 (Household - for [...] 12/26/2023 10:19 AM EDT Trish hayden from [employer] insurance Prior Authorization for Xifaxin has been approved Time frame of approval is: open ended Information will be faxed to the office at [phone]. * Telephone Encounter - Pinky Perry LPN - 12/24/2023 8:32 AM EDT Prior auth started for Xifaxan with [employer] EOC # [id number] * Telephone Encounter - Raimundo Espinoza MED ASSIST - 12/23/2023 10:05 AM EDT Received paper from [facility] for diagnosis and signature. Placed paper on providers desk documented in this encounter Plan of Treatment Upcoming Encounters Date Type Department Care Team (Latest Contact Info) Description 12/29/2023 11:00 AM EDT Cardiac Studies Cardiac Studies, [facility] [address] [place] [address] 12/31/2023 3:28 PM EDT Hospital Encounter OR [facility], Operating Room, [facility] - 4th Floor [address] [place] [address] Alfredo Panda MD [address] [place] [address] 12/31/2023 3:28 PM EDT - 12/31/2023 4:30 PM EDT Surgery OR [facility], Operating Room, [facility] - 4th Floor [address] [place] [address] Alfredo Panda MD [address] [place] [address] CYSTOSTOMY WITH DRAINAGE OF BLADDER 01/05/2024 2:00 PM EDT Home Visit dang at [facility] [address] [address] Connie Mccullough, RN [address] [place] [address] 01/16/2024 9:45 AM EDT Office Visit Urology Kimberly Harmon [address] [place] [address] Alfredo Panda MD [address] [place] [address] 01/26/2024 3:00 PM EDT Procedure Only Urology, [facility] 132 [facility] [place] [address] Alfredo Panda MD [address] [place] [address] 02/09/2024 9:00 AM EDT [facility] Visit [facility] 132 [facility] [place] [address] Kirby Valenzuela PA-C [address] [facility] [address] 03/02/2024 4:00 PM EDT Imaging Radiology, [address] [address] 06/08/2024 6:00 PM EST Office Visit [facility] [address] [place] [address] Brian Domínguez MD [address] [place] [address] Scheduled Procedures Name Priority Associated Diagnoses Date/Ti [...] 06/10/2021, 08/29/2020, 08/01/2020 CKD PHOS USE SMARTSET 32523 10/24/202310/05, 02/18/2022, 02/17/2022, Additional history exists GFR 04/21/2024 10/21/2023, 07/08, 06/17/2023, Additional history exists Colonoscopy 05/20/2024 05/20/2014 Colorectal Cancer Screening 05/20/2024 HbA1c 06/11/2024 12/11/2023, 06/06, 10/23/2022, Additional history exists TSH 06/17/2024 06/17/2023, 05/08, 02/13/2023, Additional history exists Diabetic Foot Exam 10/15/2024 10/16/2023, 1 07/22/2019, 02/22/2019, Additional history exists Albumin/Creatinine Ratio 11/03/2024 024, 10/23/2022, 07/17/2022, Additional history exists CKD HGB USE SMARTSET 89010 12/10/202412/10, 08/04/2023, 08/04/2023, Additional history exists O2 [...] this encounter Medical Devices Implanted Type Area Yarn Spinner Device Identifier Shelf Expiration Date Model / Serial / Lot Sut Steel 6 M654g - [id number] Implanted:Qty: 3 [place] [facility] [place] Chest DO NOT USE 01/15/2015 M654G / / [id number] Band Magdy 225-241 - [id number] Implanted:Qty: 1 on 02/15/2011 [place] [facility] [place]: Chest [employer] 225-241 / / [id number] Sut Steel 6 M654g - [id number] Implanted:Qty: 1 on 02/15/2011 [place] [facility] [place]A: Chest DO NOT USE 07/21/2015 M654G / / [id number] documented as of this encounter Advance Directives Documents on File Type Date Recorded 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
--- OUTSIDE RECORDS SUMMARY | 2024-03-03 08:16 | External Medical Summary | Summary of Care ---
Author Name Unknown Organization [facility] Address [address] [place] [address] Phone [phone] Care Team Providers Care Poultry Hatchery Man Name Role Phone Brian Domínguez MD Primary Care Provider [phone]- [phone] Reason for Visit * Reason Comments Outpatient Testing Encounter Details Date Type Department Care Team (Late st Contact Info) Description 12/24/2023 9:50 AM EDT Laboratory Laboratory [facility] [address] [place] [address] Pod3, Specimen Drop Off [facility] [address] [place] [address] Recurrent UTI Allergies Active Allergy Reactions Criticality Noted Date Comments Propoxyphene Hcl Rash Low 10/29/2010 Fentanyl Diarrhea Low 04/26/2010 anxiety Methocarbamol Medium 10/05/2020 Other reaction(s): Delirium Methocarbamol Low 04/15/2007 Zolpidem Low 10/05/2020 Other reaction(s): Confusion documented as of this encounter (statuses as of 12/24/2023) Medications Medication Sig Dispensed Refills Start Date End Date Status venlafaxine XR (EFFEXOR XR) 150 MG [id number]:Dep ression Take 1 Cap by mouth daily. [...] Kit 11/18/2017 Active Blood Glucose Monitoring Suppl (AeroFS VERIO) w/Device KIT Use as directed. Use as directed. 1 Kit 10/31/2018 Active Spacer/Aero-Holding Chambers WISAM Use with inhaler. Wheezing/bronchitis . 1 Device 04/08/2019 Active Lancet Devices (Book&TableTOUCH DELICA LANCING DEV) MISC Use four times [...] per week 6 mL 1 09/08/2023 Active PEG 3350 17 GM/SCOOP [...] minutes 25 Tablet 5 10/16/2023 Active Nystatin 797376 UNIT/GM External Powder (Nystop)Indications :Candidal intertrigo Apply topically to affected area 3 times a day. Apply to right breast until rash resolved. 30 g 10/16/2023 Active Nystatin 613616 UNIT/ML Mouth/Throat Suspension SWISH AND SWALLOW 5ML IN THE MORNING AND 5ML AT NOON AND 5 ML IN THE EVENING AND 5ML BEFORE BEDTIME, FOR THRUSH 240 mL 1 10/16/2023 Active Metoprolol Succinate ER 25 MG Oral Tablet Extended Release 24 Hour (toPROL XL)Indications:HTN, goal below 130/80 TAKE 1 TABLET BY MOUTH EVERY MORNING 90 Tablet 10/25/2023 Active Nitrofurantoin Monohyd Macro 100 MG Oral Capsule (Macrobid) Take 1 Capsule by mouth in the morning and 1 Capsule before bedtime. With food.. 60 Capsule 11/07/2023 Active Additional Information Patient not taking.Reported on 12/05/2023 Vitamin D (Ergocalciferol) 1.25 MG (49262 UT) Oral Capsule (Drisdol)Indication s:Vitamin D deficiency [...] a day 200 Each 2 12/23/2023 Active documented as of this encounter (statuses as of 12/24/2023) Active Problems Problem Noted Date Diagnosed Date [...] mg daily Coronary artery disease invo lving [place] coronary artery of [place] heart without angina pectoris 11/15/2021 Last Assessment [...] incontinence 03/27/2021 alf (current) use of insulin 09/29/2019 Diabetic gastroparesis [...] 01/16/22 Moderate aortic stenosis 05/06/2018 Anxiety 08/05/2017 Lolelvp-Hgore-Ztjvl disease 06/27/2015 Last Assessment & Plan: Frequent [...] as of this encounter (statuses as of 12/24/2023) Resolved Problems Problem Noted Date Diagnosed Date [...] liver 05/06/2018 Atherosclerotic heart diseas e of [place] coronary [...] stenosis 10/31/2010 08/28/2018 Acute coronary syndrome 10/30/201001/04 [employer] Other*[id number] 02/02/2010 04/18/2014 Overview: Karen Registry, Dr Joel [...] as of this encounter (statuses as of 12/24/2023) Immunizations Name Administration Dates Next Due COVID-19 [...] Department Care Team (Latest Contact Info) Description 12/24/2023 12:00 PM EDT Laboratory Laboratory [facility] [address] [place] [phone] Belle Gonzalez [address] [place] [facility] [address] 12/31/2023 3:28 PM EDT Hospital Encounter OR [facility], Operating Room, [facility] - 4th Floor [address] [place] [address] Alfredo Panda MD [address] [place] [address] 12/31/2023 3:28 PM EDT - 12/31/2023 4:30 PM EDT Surgery OR [facility], Operating Room, [facility] - 4th Floor [address] [place] [address] Alfredo Panda MD [address] [place] [address] CYSTOSTOMY WITH DRAINAGE OF BLADDER 01/05/2024 2:00 PM EDT [facility] [address] [place] [address] Connie Mccullough RN [address] [place] [address] 01/16/2024 9:45 AM EDT Office Visit Urology Kimberly Harmon [address] [place] [address] Alfredo Panda MD [address] [place] [address] 01/26/2024 3:00 PM EDT Procedure Only Urology, [facility] [address] [place] [address] Alfredo Panda MD [address] [place] [address] 02/09/2024 9:00 AM EDT [facility], [facility] [address] [place] [address] Kirby Valenzuela PA-C [address] [place] [address] 03/02/2024 4:00 PM EDT Imaging Radiology, [place] [address] [facility] [place] [address] 06/08/2024 6:00 PM EST Office Visit [facility] [address] [place] [phone] Brian Domínguez MD [address], [place] [phone] Pending Results Name Type Priority Associated Diagnoses Date /Time CULTURE, URINE, QUANTITATIVE Lab Routine Recurrent UTI 12/24/2023 10:01 AM EDT Scheduled Procedures Name Priority Associated [...] 06/10/2021, 08/29/2020, 08/01/2020 CKD PHOS USE SMARTSET 27308 10/24/202310/05, 02/18/2022, 02/17/2022, Additional history exists GFR 04/21/2024 10/21/2023, 07/08, 06/17/2023, Additional history exists Colonoscopy 05/20/2024 05/20/2014 Colorectal Cancer Screening 05/20/2024 HbA1c 06/11/2024 12/11/2023, 06/06, 10/23/2022, Additional history exists TSH 06/17/2024 06/17/2023, 05/08, 02/13/2023, Additional history exists Diabetic Foot Exam 10/15/2024 10/16/2023, 1 07/22/2019, 02/22/2019, Additional history exists Albumin/Creatinine Ratio 11/03/2024 024, 10/23/2022, 07/17/2022, Additional history exists CKD HGB USE SMARTSET 45198 12/10/202412/10, 08/04/2023, 08/04/2023, Additional history exists O2 [...] this encounter Medical Devices Implanted Type Area Fairmont Gold Attendant Device Identifier Shelf Expiration Date Model / Serial / Lot Sut Steel 6 M654g - [id number] [place] 3 [place] [facility] [place] Chest DO NOT USE 01/15/2015 M654G / / [id number] Gaston Curran 225-241 - [id number] Implanted:Qty: 1 on 02/15/2011 [place] [facility] [place]: Chest [employer] 225-241 / / [id number] Sut Steel 6 M654g - [id number] Implanted:Qty: 1 on 02/15/2011 [place] [facility] [place]: Chest DO NOT USE 07/21/2015 M654G / / [id number] documented as of this encounter Visit Diagnoses Diagnosis Urge incontinence- Primary Recurrent UTI Urinary tract infection, site not specified Urge incontinence documented in this encounter Advance Directives Documents on File Type Date Recorded Patient Youth Agent Jose luna POL 05/06/2018 POLST * Full [...] [facility] p Communication Carolyn Goldmandrewnabila Adult Child Health Care Agent Care Teams Poultry Hatchery Man Relationship Specialty Start Date End Date Brian Domínguez MD [address] [place] [address] PCP - General Family Medicine 07/16/17 documented as of this encounter
--- OUTSIDE RECORDS SUMMARY | 2024-03-03 08:16 | External Medical Summary | Summary of Care ---
Author Name Unknown Organization [facility] Address [address] [place] [address] Phone [phone] Care Team Providers Care Residential Sales Name Role Phone Brian Domínguez MD Primary Care Provider +1- [phone] Reason for Visit * Reason Onset Date Comments Pre Cert/Prior Auth 12/23/2023 Xifaxan Encounter Details Date Type Department Care Team (Late st Contact Info) Description 12/23/2023 Telephone [facility] [address] [place] [address] Brian Domínguez MD [address] [place] [address] Pre Cert/Prior Auth (Xifaxan) Allergies [...] Status venlafaxine XR (EFFEXOR XR) 150 MG [id number]:De pression Take 1 Cap by mouth daily. With food. 30 Cap 5 09/02/19 17 Active Additional Information Patient taking differently: 225 mgOral Daily(AM),Taking a total of 225 mg, Indications: Takes 225 mg total every morning with food (150 mg tab + 75 mg tab), Reported on 03/03/2023 Blood Glucose Monitoring Suppl ([employer] GLUCOMETER) w/Device KITIndications:Unc ontrolled type 2 diabetes mellitus without complication, without long-term current use of insulin Use as directed. Use as directed once daily 1 Kit 11/19/19 18 Active Blood Glucose Monitoring Suppl ([employer] VERIO) w/Device KIT Use as directed. Use as directed. 1 Kit 11/01/19 19 Active Spacer/Aero-Holdin g Chambers WISAM Use with inhaler. Wheezing/bronchiti s. 1 Device 04/08/20 19 Active Lancet Devices ([employer] DELICA LANCING DEV) MISC Use four times [...] Oral Tablet (Demadex)Indicatio ns:Atherosclerotic heart disease of [place] coronary artery with other forms of angina [...] 25 Tablet 5 10/16/19 24 Active Nystatin 782023 UNIT/GM External Powder (Nystop)Indication s:Candidal intertrigo Apply topically to affected area 3 times a day. Apply to right breast until rash resolved. 30 g 10/16/19 24 Active Nystatin 595515 UNIT/ML Mouth/Throat Suspension SWISH AND SWALLOW 5ML [...] 24 Active Vitamin D (Ergocalciferol) 1.25 MG (62448 UT) Oral Capsule (Drisdol)Indicatio ns:Vitamin D deficiency [...] mg daily Coronary artery disease invo lving [place] coronary artery of [place] heart without angina pectoris 11/15/2021 Last Assessment & Plan: Stable. No angina -continue toprol, ASA and statin Seasonal allergies 11/15/2021 Recurrent UTI 10/07/2021 Last Assessment & Plan: Followed by urology Pt is supposed to be on methenamine--will need to clarify with dgt that she is giving this. 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 (Household - for [...] 12/26/2023 10:19 AM EDT Trish hayden from [facility] insurance Prior Authorization for Xifaxin has been approved Time frame of approval is: open ended Information will be faxed to the office at [phone]. * Telephone Encounter - Pinky Perry LPN - 12/24/2023 8:32 AM EDT Prior auth started for Xifaxan with [employer] EOC # [id number] * Telephone Encounter - Raimundo Espinoza MED ASSIST - 12/23/2023 10:05 AM EDT Received paper from [facility] for diagnosis and signature. Placed paper on providers desk documented in this encounter Plan of Treatment Upcoming Encounters Date Type Department Care Team (Latest Contact Info) Description 12/29/2023 11:00 AM EDT Cardiac Studies Cardiac Studies, [facility] [address] [place] [address] 12/31/2023 3:28 PM EDT Hospital Encounter OR [facility], Operating Room, [facility] - 4th Floor [address] [place] [address] Alfredo Panda MD [address] [place] [address] 12/31/2023 3:28 PM EDT - 12/31/2023 4:30 PM EDT Surgery OR [facility], Operating Room, [facility] - 4th Floor [address] [place] [address] Alfredo Panda MD [address] [place] [address] CYSTOSTOMY WITH DRAINAGE OF BLADDER 01/05/2024 2:00 PM EDT Home Visit dang at [facility] [address] [address] Connie Mccullough, RN [address] [place] [address] 01/16/2024 9:45 AM EDT Office Visit Urology Kimberly Harmon [address] [place] [address] Alfredo Panda MD [address] [place] [address] 01/26/2024 3:00 PM EDT Procedure Only Urology, [facility] 132 [facility] [place] [address] Alfredo Panda MD [address] [place] [address] 02/09/2024 9:00 AM EDT Home Visit [facility] 132 [facility] [place] [address] Kirby Valenzuela PA-C [address] [facility] [address] 03/02/2024 4:00 PM EDT Imaging Radiology, [address] [address] 06/08/2024 6:00 PM EST Office Visit [facility] [address] [place] [address] Brian Domínguez MD [address] [place] [address] Scheduled Procedures Name Priority Associated Diagnoses Date/Ti [...] 06/10/2021, 08/29/2020, 08/01/2020 CKD PHOS USE SMARTSET 45024 10/24/202310/05, 02/18/2022, 02/17/2022, Additional history exists GFR 04/21/2024 10/21/2023, 07/08, 06/17/2023, Additional history exists Colonoscopy 05/20/2024 05/20/2014 Colorectal Cancer Screening 05/20/2024 HbA1c 06/11/2024 12/11/2023, 06/06, 10/23/2022, Additional history exists TSH 06/17/2024 06/17/2023, 05/08, 02/13/2023, Additional history exists Diabetic Foot Exam 10/15/2024 10/16/2023, 1 07/22/2019, 02/22/2019, Additional history exists Albumin/Creatinine Ratio 11/03/2024 024, 10/23/2022, 07/17/2022, Additional history exists CKD HGB USE SMARTSET 97049 12/10/202412/10, 08/04/2023, 08/04/2023, Additional history exists O2 [...] this encounter Medical Devices Implanted Type Area Senior It Specialist Device Identifier Shelf Expiration Date Model / Serial / Lot Sut Steel 6 M654g - [id number] Implanted:Qty: 3 on 02/15/2011 [place] [facility] [place]: Chest DO NOT USE 01/15/2015 M654G / / [id number] Band Magdy 225-241 - [id number] Implanted:Qty: 1 on 02/15/2011 at [place] [facility] [place]/A: Chest [employer] 225-241 / / [id number] Sut Steel 6 M654g - [id number] Implanted:Qty: 1 on 02/15/2011 at [place] [facility] [place]/A: Chest DO NOT USE 07/21/2015 M654G / / [id number] documented as of this encounter Advance Directives Documents on File Type Date Recorded Patient Computer Tech Expl anation POL 05/06/2018 POLST * Full [...] Healthcare Agent [facility] Communication Carolyn Ballard Adult Child Health Care Agent Care Teams Residential Sales Relationship Specialty Start Date End Date Brian Domínguez MD [address] [place] [address] PCP - General Family Medicine 07/16/17 documented as of this encounter
--- OUTSIDE RECORDS SUMMARY | 2024-03-03 08:16 | External Medical Summary | Summary of Care ---
Author Name Unknown Organization [facility] Address [address] [place] [address] Phone [phone] Care Team Providers Care Backhaul Driver Name Role Phone Brian Domínguez MD Primary Care Provider [phone]- [phone] Reason for Visit * Reason Comments Re-Check Encounter Details Date Type Department Care Team (Late st Contact Info) Description 12/24/2023 9:40 AM EDT Office Visit Infectious Disease [facility] Lisa Birmingham [address] [place] [address] Buzz Wall MD [address] [place] [address] Urge incontinence*; Recurrent UTI; Atonic neurogenic bladder; Charcot-Rashmi disease Allergies Active Allergy Reactions Criticality Noted Date Comments Propoxyphene Hcl Rash Low 10/29/2010 Fentanyl Diarrhea Low 04/26/2010 anxiety Methocarbamol Medium 10/05/2020 Other reaction(s): Delirium Methocarbamol Low 04/15/2007 Zolpidem Low 10/05/2020 Other reaction(s): Confusion documented as of this encounter (statuses as of 12/24/2023) Medications Medication Sig Dispensed Refills Start Date End Date Status venlafaxine XR (EFFEXOR XR) 150 MG [id number]:De pression Take 1 Cap by mouth daily. With food. 30 Cap 5 09/02/19 17 Active Additional Information Patient taking differently: 225 mgOral Daily(AM),Taking a total of 225 mg, Indications: Takes 225 mg total every morning with food (150 mg tab + 75 mg tab), Reported on 03/03/2023 Blood Glucose Monitoring Suppl (Starvine-CourseWeaver GLUCOMETER) w/Device KITIndications:Unc ontrolled type 2 diabetes mellitus without complication, without long-term current use of insulin Use as directed. Use as directed once daily 1 Kit 11/19/19 18 Active Blood Glucose Monitoring Suppl (Koemei VERIO) w/Device KIT Use as directed. Use as directed. 1 Kit 11/01/19 19 Active Spacer/Aero-Holdin g Chambers WISAM Use with inhaler. Wheezing/bronchiti s. 1 Device 04/08/20 19 Active Lancet Devices (Koemei DELICA LANCING DEV) MISC Use four times [...] (Demadex)Indicatio ns:Atherosclerotic heart disease of [place] coronary artery with other forms of angina [...] the skin once per week 6 mL 09/08/19 24 Active PEG 3350 17 GM/SCOOP [...] 25 Tablet 5 10/16/19 24 Active Nystatin 462210 UNIT/GM External Powder (Nystop)Indication s:Candidal intertrigo Apply topically to affected area 3 times a day. Apply to right breast until rash resolved. 30 g 10/16/19 24 Active Nystatin 671152 UNIT/ML Mouth/Throat Suspension SWISH AND SWALLOW 5ML [...] 24 Active Vitamin D (Ergocalciferol) 1.25 MG (75700 UT) Oral Capsule (Drisdol)Indicatio ns:Vitamin D deficiency [...] Additional Information Patient not taking.Reported on 12/24/2023 oxyBUTYnin Chloride ER 10 MG Oral Tablet [...] day 200 Each 2 12/23/19 24 Active Cefdinir 300 MG Oral Capsule (Omnicef) Take 1 Capsule by mouth in the morning and 1 Capsule before bedtime. Do all this for 10 days. 20 Capsule 12/24/19 24 024 Active Additional Information Patient not taking.Reported on 12/24/2023 Nitrofurantoin Monohyd Macro 100 MG Oral Capsule [...] Coronary artery disease invo lving [place] coronary artery of [place] heart without angina pectoris 11/15/2021 Last Assessment & Plan: Stable. No angina -continue toprol, ASA and statin Seasonal allergies 11/15/2021 Recurrent UTI 10/07/2021 Last Assessment & Plan: Followed by urology Pt is supposed to be on methenamine--will need to clarify with dgt that she is giving this. Pt also to see uro-client service executive and ID Type 2 diabetes mellitus wit [...] 01/16/22 Moderate aortic stenosis 05/06/2018 Anxiety 08/05/2017 Ynjveky-Lrwfx-Kheqr disease 06/27/2015 Last Assessment & Plan: Frequent [...] Atherosclerotic heart diseas e of [place] coronary artery with other forms of angina [...] stenosis 10/31/2010 08/28/2018 Acute coronary syndrome 10/30/201001/04 COMSTOCK Research Other*[id number] 02/02/2010 04/18/2014 Overview: [place] [facility], Dr Joel Kwon PI Obesity, morbid [...] Sign Reading Time Taken Comments Blood Pressure 149/71 12/24/2023 10:35 AM EDT Pulse 94 12/24/2023 10:35 AM EDT Temperature 36.7 C (98 F) 12/24/2023 10:35 AM EDT Respiratory Rate 16 12/24/2023 10:35 AM EDT Oxygen Saturation - - Inhaled Oxygen Concentration - - Weight 110.2 kg (243 lb) 12/24/2023 10:35 AM EDT Height - - Body Mass Index 36.95 11/18/2023 6:03 PM EDT documented in this encounter Progress Notes * Buzz Wall MD - 12/24/2023 10:53 AM EDT Images from the original note were not included. History of Present Illness Ms. Ballard is a 73-year-old woman with medical history of Charcot Rashmi tooth disease, HTN, chronicdiastolic heart failure, stage IIIA CKD, and type 2 diabetes who is presenting to our clinic today with her daughter for F/U on recurrent UTI. I saw her in the clinic in Aug 2023 and decided to starther on chronic suppressive therapy with Bactrim SS once daily. However, in mid September 2023, she developed UTI with proteus mirabilis resistant to Bactrim. At that time, we treated her with cefdinir which she reported worked very well for her. I also referred her to urogynecologist who prescribed herlocal estrogen cream. She was recently seen by her urologist (Dr. Alfredo Panda) and because of her progressive urge incontinence and neurogenic bladder, he decided to insert a suprapubic catheter. During today's encounter, she mentioned that she is currently having UTI symptoms (dysuria, urgency and worsening of her urge incontinence, but no fever or chills. She also mentioned that she has been h aving a bug under her skin and has been picking on them which caused some bruises and bleeding superficial ulcers. Physical Exam Vitals: 12/24/23 1035 Temp: 36.7 C (98 F) General: sitting in her wheelchair comfortably and in no acute respiratory or pain distress. HEENT: head atraumatic. No conjunctival injection and no nasal discharge. Cardiac: Regular heart rate with systolic murmur over the precordium. Both, S1 and S2 are heard. Respiratory: The chest wall is symmetric and without deformity. Good bilateral air entry with no wheezes or crackles. Abdominal: Abdomen is soft, not distended with no tenderness. Genital/Rectal: No Galalgher in place. Extremities/Skin: Upper extremities with multiple ecchymotic lesions and bruises. Neurological: The patient is awake, alert and oriented to person, place, and time with normal speech. Psychiatric: Appropriate mood and affect. Good judgement and insight. I have reviewed the following results: Urine Culture Assessment and Plan 1) Recurrent UTI 2) Neurogenic bladder 3) Urged incontinence 4) Charcot Rashmi tooth disease 5) Bugs under skin Plan: - I will start cefdinir for her current UTI. Urine Cx was sent today after being ordered by her PCP. We will F/U on the culture and decide on whether we need to adjust antibiotics. Based on previous cultures, the organisms were all susceptible to 3rd and 4th generating cephalosporins, so if the current Cx grows a similar organism and patient felt better, I will consider placing her on Cefdinir for chronic suppressive therapy. - I agree with Dr. Panda on suprapubic catheter. Though there is still high risk for infection with cystostomy catheter, I believe the benefits of placing one outweighs the risks especially with herneurogenic bladder getting worse. - Regarding the feeling of bug under her skin which urges her to pick on them resulting in ecchymosis and bleeding ulcers, I asked her daughter to check for any bed bugs at her apartment. This could possibly be secondary to her progressive neuropathy (associated with Charcot Rashmi syndrome) or eventactile hallucination. We will revisit during the next office visit and go from there. Wrap-Up Follow Up: Return in about 6 months (around 06/24/2024) for Return with Physician. | For: Return with Physician | Check-out note: Will assess in 6 months Time: I spent a total of 20-29 minutes (exact time 25 mins) on the date of service in preparation, delivery, and documentation of the care provided to Angelina Ballard excluding any time spent in the performance of separately billed services. * Catina Singh RN - 12/24/2023 10:35 AM EDT . documented in this encounter Procedure Notes * Leonid Falk DO - 12/24/2023 11:14 AM EDTAssociated Order(s): EKG REASON FOR STUDY: preop;preop CONCLUSIONS: Normal sinus rhythm Left anterior fascicular block Possible Anterolateral infarct (cited on or before 24-Dec-2023) Abnormal ECG When compared with ECG of 24-Dec-2023 11:14, No significant change was found Ventricular Rate: 92 Atrial Rate: 92 AR Interval: 144 QRS Duration: 104 QT/QTc: 346/427 ms P-R-T [place]: 4 : -61 : 77 degrees documented in this encounter Plan of Treatment Upcoming Encounters Date Type Department Care Team (Latest Contact Info) Description 12/31/2023 3:28 PM EDT Hospital Encounter OR [facility], Operating Room, [facility] - 4th Floor [address] [place] [address] Alfredo Panda MD [address] [place] [address] 12/31/2023 3:28 PM EDT - 12/31/2023 4:30 PM EDT Surgery OR [facility], Operating Room, [facility] - 4th Floor [address] [place] [address] Alfredo Panda MD [address] [place] [address] CYSTOSTOMY WITH DRAINAGE OF BLADDER 01/05/2024 2:00 PM EDT [facility] Visit [facility], [facility] [address] [facility] [place] [address] Connei Mccullough, RN [address] [place] [address] 01/16/2024 9:45 AM EDT Office Visit Urology Kimberly Harmon [address] [place] [address] Alfredo Panda MD [address] [place] [address] 01/26/2024 3:00 PM EDT Procedure Only Urology, [facility] [place] [address] Alfredo Panda MD [address] [place] [address] 02/09/2024 9:00 AM EDT Home Visit [facility], [facility] [address] [facility] [place] [address] Kirby Valenzuela PA-C [address] [facility] [place] [address] 03/02/2024 4:00 PM EDT Imaging Radiology, [address] [place] [address] 06/08/2024 6:00 PM EST Office Visit Family [facility] [address] [place] [id number] Brian Domínguez MD [address] [place] [address] Scheduled Procedures Name Priority Associated Diagnoses Date/Ti [...] 06/10/2021, 08/29/2020, 08/01/2020 CKD PHOS USE SMARTSET 77943 10/24/202310/05, 02/18/2022, 02/17/2022, Additional history exists GFR 04/21/2024 10/21/2023, 07/08, 06/17/2023, Additional history exists Colonoscopy 05/20/2024 05/20/2014 Colorectal Cancer Screening 05/20/2024 HbA1c 06/11/2024 12/11/2023, 06/06, 10/23/2022, Additional history exists TSH 06/17/2024 06/17/2023, 05/08, 02/13/2023, Additional history exists Diabetic Foot Exam 10/15/2024 10/16/2023, 1 07/22/2019, 02/22/2019, Additional history exists Albumin/Creatinine Ratio 11/03/2024 024, 10/23/2022, 07/17/2022, Additional history exists CKD HGB USE SMARTSET 53547 12/10/202412/10, 08/04/2023, 08/04/2023, Additional history exists O2 ASSESSMENT COMPLETED IN PAST YEAR FOR COPD 12/14/2024 12/15/2023 DTaP,Tdap,and Td Vaccines (2 - Td or Tdap) 06/27/2025 06/27/2015 Hepatitis C Screening Completed 07/04/2011, 12/20/2 011 Pneumococcal Vaccine: 65+ Years Completed 02/14/2017, [...] this encounter Medical Devices Implanted Type Area Military Professional Device Identifier Shelf Expiration Date Model / Serial / Lot Sut Steel 6 M654g - [id number] Implanted:Qty: 3 on 02/15/2011 at OR [place] N/A: Chest DO NOT USE 01/15/2015 M654G / / [id number] Band Magdy 225-241 - [id number] Implanted:Qty: 1 on 02/15/2011 at OR [place] N/A: Chest [employer] 225-241 / / [id number] Sut Steel 6 M654g - [id number] Implanted:Qty: 1 on 02/15/2011 at OR [place] N/A: Chest DO NOT USE 07/21/2015 M654G / / [id number] documented as of this encounter Procedures Procedure Name Priority Date/Time Associated Diagnosis Comments AR ECG ROUTINE ECG W/LEAST 12 LDS I&R ONLY Routine 12/24/2023 11:14 AM EDT Recurrent UTI documented in this encounter Results * EKG (12/24/2023 11:14 AM EDT) 12/24/2023 11:1 4 AM EDT Narrative Procedure Note Leonid Falk, DO - 12/24/2023 11:14 AM EDT REASON FOR STUDY: preop;preop CONCLUSIONS: Normal sinus rhythm Left anterior fascicular block Possible Anterolateral infarct (cited on or before 24-Dec-2023) Abnormal ECG When compared with ECG of 24-Dec-2023 11:14, No significant change was found Ventricular Rate: 92 Atrial Rate: 92 AR Interval: 144 QRS Duration: 104 QT/QTc: 346/427 ms P-R-T [place]: 4 : -61 : 77 degrees Alfredo Panda MD EKG [facility] documented in this encounter Visit Diagnoses Diagnosis Urge incontinence- Primary Urge incontinence- Primary Recurrent UTI Urinary tract infection, site not specified Atonic neurogenic bladder Neurogenic bladder, NOS Charcot-Rashmi disease Peroneal muscular atrophy Urge incontinence documented in this encounter Advance Directives Documents on File Type Date Recorded Patient Regional Facilities Specialist Expl anation POLST 05/06/2018 POLST * [...] Adult Child Health Care Agent Care Teams Backhaul Driver Relationship Specialty Start Date End Date Brian Domínguez MD [address] [place] [address] PCP - General Family Medicine 07/16/17 documented as of this encounter"
--- OUTSIDE RECORDS SUMMARY | 2024-03-03 08:16 | External Medical Summary | Summary of Care ---
Author Name Unknown Organization [facility] Address [address] [place] [address] Phone [phone] Care Team Providers Care Construction Area Manager Name Role Phone Brian Domínguez MD Primary Care Provider +1- [phone] Encounter Details Date Type Department Care Team (Late st Contact Info) Description 12/24/2023 Medication Management [facility] [address] [place] [address] Brian Domínguez MD [address] [place] [address] Allergies Active Allergy Reactions Criticality Noted Date Comments Propoxyphene Hcl Rash Low 10/29/2010 Fentanyl Diarrhea Low 04/26/2010 anxiety Methocarbamol Medium 10/05/2020 Other reaction(s): Delirium Methocarbamol Low 04/15/2007 Zolpidem Low 10/05/2020 Other reaction(s): Confusion documented as of this encounter (statuses as of 12/25/2023) Medications Medication Sig Dispensed Refills Start Date End Date Status venlafaxine XR (EFFEXOR XR) 150 MG [id number]:Dep ression Take 1 Cap by mouth daily. [...] Kit 11/18/2017 Active Blood Glucose Monitoring Suppl (MarginLeftUCH VERIO) w/Device KIT Use as directed. Use as directed. 1 Kit 10/31/2018 Active Spacer/Aero-Holding Chambers WISAM Use with inhaler. Wheezing/bronchitis . 1 Device 04/08/2019 Active Lancet Devices (Card IsleTOUCH DELICA LANCING DEV) MISC Use four times [...] Oral Tablet (Demadex)Indication s:Atherosclerotic heart disease of [place] coronary artery with other forms of angina [...] minutes 25 Tablet 5 10/16/2023 Active Nystatin 669253 UNIT/GM External Powder (Nystop)Indications :Candidal intertrigo Apply topically to affected area 3 times a day. Apply to right breast until rash resolved. 30 g 10/16/2023 Active Nystatin 199166 UNIT/ML Mouth/Throat Suspension SWISH AND SWALLOW 5ML IN THE MORNING AND 5ML AT NOON AND 5 ML IN THE EVENING AND 5ML BEFORE BEDTIME, FOR THRUSH 240 mL 1 10/16/2023 Active Metoprolol Succinate ER 25 MG Oral Tablet Extended Release 24 Hour (toPROL XL)Indications:HTN, goal below 130/80 TAKE 1 TABLET BY MOUTH EVERY MORNING 90 Tablet 10/25/2023 Active Vitamin D (Ergocalciferol) 1.25 MG (52887 UT) Oral Capsule (Drisdol)Indication s:Vitamin D deficiency [...] as of this encounter (statuses as of 12/25/2023) Active Problems Problem Noted Date Diagnosed Date [...] mg daily Coronary artery disease invo lving [place] coronary artery of [place] heart without angina pectoris 11/15/2021 Last Assessment & Plan: Stable. No angina -continue toprol, ASA and statin Seasonal allergies 11/15/2021 Recurrent UTI 10/07/2021 Last Assessment & Plan: Followed by urology Pt is supposed to be on methenamine--will need to clarify with dgt that she is giving this. Pt also to see uro-data entry technician and ID Type 2 diabetes mellitus [...] 01/16/22 Moderate aortic stenosis 05/06/2018 Anxiety 08/05/2017 Wujbjmf-Hzqfd-Xnipc disease 06/27/2015 Last Assessment & Plan: Frequent [...] as of this encounter (statuses as of 12/25/2023) Resolved Problems Problem Noted Date Diagnosed Date [...] liver 05/06/2018 Atherosclerotic heart diseas e of [place] coronary artery with other forms of angina [...] stenosis 10/31/2010 08/28/2018 Acute coronary syndrome 10/30/201001/04 KIMBERLY Research Other*[id number] 02/02/2010 04/18/2014 Overview: [place] [facility], Dr Joel CASAS Obesity, morbid (more [...] 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 [place] [address] Alfredo Panda MD [address] [place] [address] 12/31/2023 3:28 PM EDT - 12/31/2023 4:30 PM EDT Surgery OR [facility], Operating Room, [facility] - 4th Floor [address] [place] [address] [place] [address] Alfredo Panda MD [address] [place] [address] CYSTOSTOMY WITH DRAINAGE OF BLADDER 01/05/2024 2:00 PM EDT [facility] Visit [facility], [facility] [address] [address] Connie Mccullough RN [address] [place] [address] 01/16/2024 9:45 AM EDT Office Visit Urology Kimberly Harmon [address] [place] [address] Alfredo Panda MD [address] [place] [address] 01/26/2024 3:00 PM EDT Procedure Only Urology, [facility] [address] [address] Alfredo Panda MD [address] [place] [address] 02/09/2024 9:00 AM EDT Home Visit [facility], [facility] [address] [address] Kirby Valenzuela PA-C [address] [place] [address] 03/02/2024 4:00 PM EDT Imaging Radiology, [address] [place] [address] 06/08/2024 6:00 PM EST Office Visit [facility] [address] [place] [address] Brian Domínguez MD [address] [place] [address] Scheduled Procedures Name Priority Associated Diagnoses Date/Ti [...] 06/10/2021, 08/29/2020, 08/01/2020 CKD PHOS USE SMARTSET 45836 10/24/202310/05, 02/18/2022, 02/17/2022, Additional history exists GFR 04/21/2024 10/21/2023, 07/08, 06/17/2023, Additional history exists Colonoscopy 05/20/2024 05/20/2014 Colorectal Cancer Screening 05/20/2024 HbA1c 06/11/2024 12/11/2023, 06/06, 10/23/2022, Additional history exists TSH 06/17/2024 06/17/2023, 05/08, 02/13/2023, Additional history exists Diabetic Foot Exam 10/15/2024 10/16/2023, 1 07/22/2019, 02/22/2019, Additional history exists Albumin/Creatinine Ratio 11/03/2024 024, 10/23/2022, 07/17/2022, Additional history exists CKD HGB USE SMARTSET 97872 12/10/202412/10, 08/04/2023, 08/04/2023, Additional history exists O2 [...] this encounter Medical Devices Implanted Type Area Dietetic Aide Device Identifier Shelf Expiration Date Model / Serial / Lot Sut Steel 6 M654g - [id number] Implanted:Qty: 3 on 02/15/2011 at OR [facility] N/A: Chest DO NOT USE 01/15/2015 M654G / / [id number] [facility] 225-241 - [id number] Implanted:Qty: 1 on 02/15/2011 at OR [facility] N/A: Chest [employer] 225-241 / / [id number] Sut Steel 6 M654g - [id number] Implanted:Qty: 1 on 02/15/2011 at OR [facility] N/A: Chest DO NOT USE 07/21/2015 M654G / / [id number] documented as of this encounter Advance Directives Documents on File Type Date Recorded Patient Non Destructive Testing Specialist Expl anation POLST 05/06/2018 POLST * [...] Adult Child Health Care Agent Care Teams Construction Area Manager Relationship Specialty Start Date End Date Brian Domínguez MD [address] [place] [address] PCP - General Family Medicine 07/16/17 documented as of this encounter
--- OUTSIDE RECORDS SUMMARY | 2024-03-03 08:16 | External Medical Summary | Summary of Care ---
Author Name Unknown Organization [facility] Address [address] [place] [address] Phone [phone] Care Team Providers Care Dolly Driver Name Role Phone Brian Domínguez MD Primary Care Provider [phone]- [phone] Reason for Visit * Reason Onset Date Comments Pre Cert/Prior Auth 12/23/2023 Xifaxan Encounter Details Date Type Department Care Team (Late st Contact Info) Description 12/23/2023 Telephone [facility] [address] [place] [address] Brian Domínguez MD [address] [place] [address] Pre Cert/Prior Auth (Xifaxan) Allergies [...] Status venlafaxine XR (EFFEXOR XR) 150 MG [id number]:De pression Take 1 Cap by mouth daily. With food. 30 Cap 5 09/02/19 17 Active Additional Information Patient taking differently: 225 mgOral Daily(AM),Taking a total of 225 mg, Indications: Takes 225 mg total every morning with food (150 mg tab + 75 mg tab), Reported on 03/03/2023 Blood Glucose Monitoring Suppl (D-Arvinas GLUCOMETER) w/Device KITIndications:Unc ontrolled type 2 diabetes mellitus without complication, without long-term current use of insulin Use as directed. Use as directed once daily 1 Kit 11/19/19 18 Active Blood Glucose Monitoring Suppl (Xipin VERIO) w/Device KIT Use as directed. Use as directed. 1 Kit 11/01/19 19 Active Spacer/Aero-Holdin g Chambers WISAM Use with inhaler. Wheezing/bronchiti s. 1 Device 04/08/20 19 Active Lancet Devices (Xipin DELICA LANCING DEV) MISC Use four times [...] 25 Tablet 5 10/16/19 24 Active Nystatin 981313 UNIT/GM External Powder (Nystop)Indication s:Candidal intertrigo Apply topically to affected area 3 times a day. Apply to right breast until rash resolved. 30 g 10/16/19 24 Active Nystatin 507379 UNIT/ML Mouth/Throat Suspension SWISH AND SWALLOW 5ML [...] 24 Active Vitamin D (Ergocalciferol) 1.25 MG (61365 UT) Oral Capsule (Drisdol)Indicatio ns:Vitamin D deficiency [...] is giving this. 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 (Household - for [...] 12/26/2023 10:19 AM EDT Trish hayden from [facility] insurance Prior Authorization for Xifaxin has been approved Time frame of approval is: open ended Information will be faxed to the office at [phone]. * Telephone Encounter - Pinky Perry LPN - 12/24/2023 8:32 AM EDT Prior auth started for Xifaxan with [place]pt [place] EOC # [id number] * Telephone Encounter - Raimundo Espinoza MED ASSIST - 12/23/2023 10:05 AM EDT Received paper from [facility] for diagnosis and signature. Placed paper on providers desk documented in this encounter Plan of Treatment Upcoming Encounters Date Type Department Care Team (Latest Contact Info) Description 12/31/2023 3:28 PM EDT Hospital Encounter OR [facility], Operating Room, [facility] [address] [place] [address] Alfredo Panda MD [address] [place] [address] 12/31/2023 3:28 PM EDT - 12/31/2023 4:30 PM EDT Surgery OR [facility], Operating Room, [facility] Floor [address] [place] [address] Alfredo Panda MD [address] [place] [address] CYSTOSTOMY WITH DRAINAGE OF BLADDER 01/05/2024 2:00 PM EDT [facility] Visit [facility] [address] [address] Connie Mccullough, RN [address] [place] [address] 01/16/2024 9:45 AM EDT Office Visit Urology Kimberly Harmon [address] [place] [address] Alfredo Panda MD [address] [place] [address] 01/26/2024 3:00 PM EDT Procedure Only Urology, [facility] 132 [facility] [place] [address] Alfredo Panda MD [address] [place] [address] 02/09/2024 9:00 AM EDT Home Visit [facility] [place], [facility] 132 [facility] [place] [address] Kirby Valenzuela PA-C [facility] [address] 03/02/2024 4:00 PM EDT Imaging Radiology, [address] [place] [address] 06/08/2024 6:00 PM EST Office Visit [facility] [address] [place] [address] Brian Domínguez MD [address] [place] [address] Scheduled Procedures Name Priority Associated Diagnoses Date/Ti [...] 06/10/2021, 08/29/2020, 08/01/2020 CKD PHOS USE SMARTSET 68767 10/24/202310/05, 02/18/2022, 02/17/2022, Additional history exists GFR 04/21/2024 10/21/2023, 07/08, 06/17/2023, Additional history exists Colonoscopy 05/20/2024 05/20/2014 Colorectal Cancer Screening 05/20/2024 HbA1c 06/11/2024 12/11/2023, 06/06, 10/23/2022, Additional history exists TSH 06/17/2024 06/17/2023, 05/08, 02/13/2023, Additional history exists Diabetic Foot Exam 10/15/2024 10/16/2023, 1 07/22/2019, 02/22/2019, Additional history exists Albumin/Creatinine Ratio 11/03/2024 024, 10/23/2022, 07/17/2022, Additional history exists CKD HGB USE SMARTSET 12359 12/10/202412/10, 08/04/2023, 08/04/2023, Additional history exists O2 [...] this encounter Medical Devices Implanted Type Area Stranding Machine Operator Helper Device Identifier Shelf Expiration Date Model / Serial / Lot Jenna Rojas 6 M654g - [id number] Implanted:Q[place]: 3 [place] [facility] [place] Chest DO NOT USE 01/15/2015 M654G / / [id number] Band Magdy 225-241 - [id number] Implanted:Qty: 1 on 02/15/2011 [place] [facility] [place]: Chest [employer] 225-241 / / [id number] Sut Steel 6 M654g - [id number] Implanted:Qty: 1 on 02/15/2011 [place] [facility] [place]: Chest DO NOT USE 07/21/2015 M654G / / [id number] documented as of this encounter Advance Directives Documents on File Type Date Recorded Patient Outsole Compressor Expl anation POLST 05/06/2018 POLST * Full [...] Adult Child Health Care Agent Care Teams Dolly Driver Relationship Specialty Start Date End Date Brian Domínguez MD [address] [place] [address] PCP - General Family Medicine 07/16/17 documented as of this encounter
--- OUTSIDE RECORDS SUMMARY | 2024-03-03 08:17 | External Medical Summary | Summary of Care ---
Author Name Unknown Organization [facility] Address [address] [place] [address] Phone [phone] Care Team Providers Care Center Hole Reamer Name Role Phone Carmen Sifuentes MD Primary Care Provider [phone]- [phone] Reason for Visit * Reason Comments eRx-Medication Refill Encounter Details Date Type Department Care Team (Late st Contact Info) Description 12/19/2023 Refill [facility] [address] [place] [address] Carmen Sifuentes MD [address] [place] [address] Allergies Active Allergy Reactions Criticality Noted Date Comments Propoxyphene Hcl Rash Low 10/29/2010 Fentanyl Diarrhea Low 04/26/2010 anxiety Methocarbamol Medium 10/05/2020 Other reaction(s): Delirium Methocarbamol Low 04/15/2007 Zolpidem Low 10/05/2020 Other reaction(s): Confusion documented as of this encounter (statuses as of 12/19/2023) Medications Medication Sig Dispensed Refills Start Date End Date Status venlafaxine XR (EFFEXOR XR) 150 MG QP55Qxipseuiowq:De pression Take 1 Cap by mouth daily. [...] 11/19/19 18 Active Blood Glucose Monitoring Suppl (FansUnite VERIO) w/Device KIT Use as directed. Use as directed. 1 Kit 11/01/19 19 Active Spacer/Aero-Holdin g Chambers WISAM Use with inhaler. Wheezing/bronchiti s. 1 Device 04/08/20 19 Active Lancet Devices (Credit KarmaTOUCH DELICA LANCING DEV) MISC Use four times [...] levemir 100 Each 5 12/12/19 21 Active Lactulose 10 GM/15ML Oral Solution [...] NAUSEA 60 Tablet 5 12/10/19 23 Active UltiCare Pen [place] 31G X 5 MM (Insulin Pen Needle) use TWICE DAILY 200 Each 3 12/24/19 23 Active metFORMIN HCl ER 500 MG [...] Oral Tablet (Demadex)Indicatio ns:Atherosclerotic heart disease of qawalangin coronary artery with other forms of angina [...] TABLET BY MOUTH TWICE DAILY 60 Tablet 07/16/19 24 Active Famotidine 40 MG Oral Tablet (Pepcid)Indication s:Gastroesophageal reflux disease with esophagitis without hemorrhage TAKE 1 TABLET BY MOUTH EVERY MORNING 90 Tablet 07/19/19 24 Active OneTouch Verio In Vitro [...] every morning and before bedtime 180 Tablet 08/13/19 24 Active Pantoprazole Sodium 40 MG [...] OTHER MEDICATIONS 90 Tablet 09/08/19 24 Active Trulicity 4.5 MG/0.5ML Subcutaneous [...] 25 Tablet 5 10/16/19 24 Active Nystatin 448272 UNIT/GM External Powder (Nystop)Indication s:Candidal intertrigo Apply topically to affected area 3 times a day. Apply to right breast until rash resolved. 30 g 10/16/19 24 Active Nystatin 844607 UNIT/ML Mouth/Throat Suspension SWISH AND SWALLOW 5ML IN THE MORNING AND 5ML AT NOON AND 5 ML IN THE EVENING AND 5ML BEFORE BEDTIME, FOR THRUSH 240 mL 1 10/16/19 24 Active Metoprolol Succinate ER 25 MG Oral Tablet Extended Release 24 Hour (toPROL XL)Indications:HTN , goal below 130/80 TAKE 1 TABLET BY MOUTH EVERY MORNING 90 Tablet 10/25/19 24 Active Nitrofurantoin Monohyd Macro 100 MG Oral Capsule (Macrobid) Take 1 Capsule by mouth in the morning and 1 Capsule before bedtime. With food.. 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 No angina -continue toprol, ASA and statin Seasonal allergies 11/15/2021 Recurrent UTI 10/07/2021 Last Assessment & Plan: Followed by urology Pt is supposed to be on methenamine--will need to clarify with dgt that she is giving this. Pt also to see uro-java web application developer and ID Type 2 diabetes [...] 01/16/22 Moderate aortic stenosis 05/06/2018 Anxiety 08/05/2017 Mevgxkz-Xckaa-Wybup disease 06/27/2015 Last Assessment & Plan: Frequent [...] as of this encounter (statuses as of 12/19/2023) Resolved Problems Problem Noted Date Diagnosed Date [...] liver 05/06/2018 Atherosclerotic heart diseas e of qawalangin coronary artery with other forms of angina [...] stenosis 10/31/2010 08/28/2018 Acute coronary syndrome 10/30/201001/04 [place] Research Other*[id number] 02/02/2010 04/18/2014 Overview: [place] [facility], Dr Joel CASAS Obesity, morbid (more [...] as of this encounter (statuses as of 12/19/2023) Immunizations Name Administration Dates Next Due COVID-19 [...] have money to get more. Sometimes true Sex and Gender Information Value Date Recorded Sex Assigned at Female 11/04/2018 4:56 PM EDT Gender Identity Female 11/04/2018 4:56 PM EDT Sexual Orientation Straight 11/04/2018 4: 56 PM EDT Job Start Date Occupation Industry Not on file Not on file Not on file documented as of this encounter Miscellaneous Notes * Telephone Encounter - Shani Castillo RPh - 12/19/2023 2:48 PM EDTSigned Prescriptions: Disp Refills Potassium Chloride Mag ER 20 MEQ Oral Tab*90 Tab*1 Sig: TAKE ONE TABLET BY MOUTH EVERY MORNING WHEN TAKING ADDITIONAL TORSEMIDEAuthorizing Provider: CARMEN SIFUENTES User: SHANI CASTILLO documented in this encounter Plan of Treatment Upcoming Encounters Date Type Department Care Team (Latest Contact Info) Description 12/24/2023 9:40 AM EDT Office Visit Infectious Disease State Kimberly Moses [address] [place] [address] Buzz Wall MD [address] [facility] [place] [address] 12/24/2023 11:30 AM EDT Nurse Only Ancillary State Kimberly Moses [address] [place] [place] [address] Nurse Nigel Gonzalez [address] [place] [address] 12/24/2023 12:00 PM EDT Laboratory Laboratory [facility] Lisa [place] [address] [place], [place] [address] Belle Gonzalez [address] [place], [place] [address] 12/31/2023 3:28 PM EDT Hospital Encounter OR [facility], Operating Room, [facility] [address] [place] [address] Alfredo Panda MD [address] [place] [address] 12/31/2023 3:28 PM EDT - 12/31/2023 4:30 PM EDT Surgery OR [facility], Operating Room, [facility] - 4[facility] Floor [address] [place] [address] Alfredo Panda MD [address] [place] [address] CYSTOSTOMY WITH DRAINAGE OF BLADDER 01/05/2024 2:00 PM EDT [facility] Visit [facility] [address] [facility] [place] [address] Connie Mccullough RN 132 [facility] [place] [address] 01/16/2024 9:45 AM EDT Office Visit Urology Kimberly Harmon [address] [place] [address] Alfredo Panda MD [address] [place] [address] 01/26/2024 3:00 PM EDT Procedure Only Urology, [facility] 132 [facility] [place] [address] Alfredo Panda MD [address] [place] [address] 02/09/2024 9:00 AM EDT Home Visit [facility], [facility] 132 [facility] [place] [address] Kirby Valenzuela PA-C [facility] [place] [address] 03/02/2024 4:00 PM EDT Imaging Radiology, [place] [address] [place] [address] 06/08/2024 6:00 PM EST Office Visit [facility] [address] [place] [phone] Carmen Sifuentes MD [address] [place] [address] Scheduled Procedures Name Priority Associated Diagnoses Date/Ti [...] 06/10/2021, 08/29/2020, 08/01/2020 CKD PHOS USE SMARTSET 98436 10/24/2023 04/1 03/2023, 02/18/2022, 02/17/2022, Additional history exists GFR 04/21/2024 10/21/2023, 07/08, 06/17/2023, Additional history exists Colonoscopy 05/20/2024 05/20/2014 Colorectal Cancer Screening 05/20/2024 HbA1c 06/11/2024 12/11/2023, 06/06, 10/23/2022, Additional history exists TSH 06/17/2024 06/17/2023, 05/08, 02/13/2023, Additional history exists Diabetic Foot Exam 10/15/2024 10/16/2023, 1 07/22/2019, 02/22/2019, Additional history exists Albumin/Creatinine Ratio 11/03/2024 024, 10/23/2022, 07/17/2022, Additional history exists CKD HGB USE SMARTSET 44258 12/10/202412/10, 08/04/2023, 08/04/2023, Additional history exists O2 [...] this encounter Medical Devices Implanted Type Area Screwdown Operator Device Identifier Shelf Expiration Date Model / Serial / Lot Sut Bob 6 M654g - [id number] Implanted:Qty: 3 on [place] [facility] [place] Chest DO NOT USE 01/15/2015 M654G / / [id number] [facility] 225-810 - [id number] Implanted:Qty: 1 on 02/15/2011 [place] [facility] [place]: Chest [employer] 225-241 / / [id number] Sut Steel 6 M654g - [id number] Implanted:Qty: 1 on 02/15/2011 [place] [facility] [place]: Chest DO NOT USE 07/21/2015 M654G / / [id number] documented as of this encounter Advance Directives Documents on File Type Date Recorded Patient President & Ceo Expl anation POLST 05/06/2018 POLST * Full [...] patient have Health Care Power of Attor birtt? No Healthcare Agents on File Name Relationship Healthcare Agent [facility] p Communication Carolyn Ballard Adult Child Health Care Agent Care Teams Center Hole Reamer Relationship Specialty Start Date End Date Oesterling, Carmen R, MD [address] [facility] [place] [address] PCP - General Family Medicine 07/16/17 documented as of this encounter
--- OUTSIDE RECORDS SUMMARY | 2024-03-03 08:17 | External Medical Summary | Summary of Care ---
Author Name Unknown Organization [facility] Address [address] [place] [address] Phone [phone] Care Team Providers Care Freight Shipping Agent Name Role Phone Brian Domínguez MD Primary Care Provider [phone]- [phone] Reason for Visit * Reason Onset Date Comments Pre Cert/Prior Auth 12/23/2023 Xifaxan Encounter Details Date Type Department Care Team (Late st Contact Info) Description 12/23/2023 Telephone [facility] [address] [place] [address] Brian Domínguez MD [address] [place] [address] Pre Cert/Prior Auth (Xifaxan) Allergies [...] Status venlafaxine XR (EFFEXOR XR) 150 MG AN45Mircmfyjieq:Dep ression Take 1 Cap by mouth daily. [...] Kit 11/18/2017 Active Blood Glucose Monitoring Suppl ([employer] VERIO) w/Device KIT Use as directed. Use as directed. 1 Kit 10/31/2018 Active Spacer/Aero-Holding Chambers WISAM Use with inhaler. Wheezing/bronchitis . 1 Device 04/08/2019 Active Lancet Devices (StyleCraze Beauty Care Pvt LtdTOUCH DELICA LANCING DEV) MISC Use four [...] Oral Tablet (Demadex)Indication s:Atherosclerotic heart disease of pechanga coronary artery with other forms of angina [...] minutes 25 Tablet 5 10/16/2023 Active Nystatin 714780 UNIT/GM External Powder (Nystop)Indications :Candidal intertrigo Apply topically to affected area 3 times a day. Apply to right breast until rash resolved. 30 g 10/16/2023 Active Nystatin 605385 UNIT/ML Mouth/Throat Suspension SWISH AND SWALLOW 5ML [...] on 12/05/2023 Vitamin D (Ergocalciferol) 1.25 MG (02337 UT) Oral Capsule (Drisdol)Indication s:Vitamin D deficiency [...] DAILY 90 Tablet 12/16/2023 Active Potassium Chloride Mga ER 20 MEQ Oral Tablet Extended Release TAKE ONE TABLET BY MOUTH EVERY MORNING WHEN TAKING ADDITIONAL TORSEMIDE 90 Tablet 1 12/19/2023 Active documented as of this encounter (statuses [...] mg daily Coronary artery disease invo lving pechanga coronary artery of pechanga heart without angina pectoris 11/15/2021 Last Assessment & Plan: Stable. No angina -continue toprol, ASA and statin Seasonal allergies 11/15/2021 Recurrent UTI 10/07/2021 Last Assessment & Plan: Followed by urology Pt is supposed to be on methenamine--will need to clarify with dgt that she is giving this. Pt also to see uro-special education bus driver and ID Type 2 diabetes mellitus [...] 01/16/22 Moderate aortic stenosis 05/06/2018 Anxiety 08/05/2017 Vdylqzj-Xghjd-Emefm disease 06/27/2015 Last Assessment & Plan: Frequent [...] liver 05/06/2018 Atherosclerotic heart diseas e of pechanga coronary artery with other forms of angina [...] 10/31/2010 08/28/2018 Acute coronary syndrome 10/30/201001/04 [place] Other*[id number] 02/02/2010 04/18/2014 Overview: [place] [facility], Dr Joel CASAS Obesity, morbid (more [...] Prior auth started for Xifaxan with Prompt [place] EOC # [id number] * Telephone Encounter - Raimundo Espinoza MED ASSIST - 12/23/2023 10:05 AM EDT Received paper from [facility] for diagnosis and signature. Placed paper on providers desk documented in this encounter Plan of Treatment Upcoming Encounters Date Type Department Care Team (Latest Contact Info) Description 12/24/2023 9:40 AM EDT Office Visit Infectious Disease [facility] [address] [place] [address] Buzz Wall MD [address] [place] [address] 12/24/2023 12:00 PM EDT Laboratory Laboratory [facility] [address] [place] [address] [facility] 200 [facility] [place] [address] 12/31/2023 3:28 PM EDT Hospital Encounter OR [facility], Operating Room, [facility] Floor [address] [facility] [place] [address] Alfredo Panda MD 27 [facility] [address] [place] [address] 12/31/2023 3:28 PM EDT - 12/31/2023 4:30 PM EDT Surgery OR [facility], Operating Room, [address] Floor [address] [facility] [place] [address] Alfredo Panda MD [address] [place] [address] CYSTOSTOMY WITH DRAINAGE OF BLADDER 01/05/2024 2:00 PM EDT Home Visit [facility] [address] [place] [address] [address] Connie Mccullough, RN [address] [place] [address] 01/16/2024 9:45 AM EDT Office Visit Urology [place] Love [address] [place] [address] Alfredo Panda MD [address] [place] [address] 01/26/2024 3:00 PM EDT Procedure Only Urology, [facility] 132 [facility] [place] [address] Alfredo Panda MD [address] [place] [address] 02/09/2024 9:00 AM EDT [facility] Visit [facility] [place], [facility] 132 [facility] [place] [address] Kirby Valenzuela PA-C 132 [place] [address] 03/02/2024 4:00 PM EDT Imaging Radiology, [address] [address] 06/08/2024 6:00 PM EST Office Visit [facility] [address] [place] [address] Brian Domínguez MD [address] [place] [address] Scheduled Procedures Name Priority Associated Diagnoses Date/Ti [...] 06/10/2021, 08/29/2020, 08/01/2020 CKD PHOS USE SMARTSET 92763 10/24/202310/05, 02/18/2022, 02/17/2022, Additional history exists GFR 04/21/2024 10/21/2023, 07/08, 06/17/2023, Additional history exists Colonoscopy 05/20/2024 05/20/2014 Colorectal Cancer Screening 05/20/2024 HbA1c 06/11/2024 12/11/2023, 06/06, 10/23/2022, Additional history exists TSH 06/17/2024 06/17/2023, 05/08, 02/13/2023, Additional history exists Diabetic Foot Exam 10/15/2024 10/16/2023, 1 07/22/2019, 02/22/2019, Additional history exists Albumin/Creatinine Ratio 11/03/2024 024, 10/23/2022, 07/17/2022, Additional history exists CKD HGB USE SMARTSET 20818 12/10/202412/10, 08/04/2023, 08/04/2023, Additional history exists O2 [...] this encounter Medical Devices Implanted Type Area Sheriff Officer Device Identifier Shelf Expiration Date Model / Serial / Lot Sut Steel 6 M654g - [id number] Implanted:Qty: 3 on 02/15/2011 at [place] [facility] [place]/A: Chest DO NOT USE 01/15/2015 M654G / / [id number] Band Magdy 225-241 - [id number] Implanted:Qty: 1 on 02/15/2011 at [place] [facility] [place] N/A: Chest [employer] 225-241 / / [id number] Sut Steel 6 M654g - [id number] Implanted:Qty: 1 on 02/15/2011 at [place] [facility] [place] N/A: Chest DO NOT USE 07/21/2015 M654G / / [id number] documented as of this encounter Advance Directives Documents on File Type Date Recorded Patient Cut Plug Packer Expl anation POLST 05/06/2018 POLST * Full [...] Name Relationship Healthcare Agent [facility] p Communication Carolyn Ballard Adult Child Health Care Agent Care Teams Freight Shipping Agent Relationship Specialty Start Date End Date Brian Domínguez MD [address] [place] [address] PCP - General Family Medicine 07/16/17 documented as of this encounter
--- OUTSIDE RECORDS SUMMARY | 2024-03-03 08:17 | External Medical Summary | Summary of Care ---
Author Name Unknown Organization [facility] Address [address] [place] [place] [address] Phone [phone] Care Team Providers Care Cash Accounting Clerk Name Role Phone Brian Domínguez MD Primary Care Provider [phone] Reason for Visit * Reason Comments [facility]: Enrollment Encounter Details Date Type Department Care Team (Late st Contact Info) Description 12/15/2023 2:00 PM EDT Home Visit [facility], [facility] [address] [place] [address] Connie Mccullough, RN [address] [place] [address] Allergies Active Allergy Reactions Criticality Noted Date Comments Propoxyphene Hcl Rash Low 10/29/2010 Fentanyl Diarrhea Low 04/26/2010 anxiety Methocarbamol Medium 10/05/2020 Other reaction(s): Delirium Methocarbamol Low 04/15/2007 Zolpidem Low 10/05/2020 Other reaction(s): Confusion documented as of this encounter (statuses as of 12/15/2023) Medications Medication Sig Dispensed Refills Start Date End Date Status venlafaxine XR (EFFEXOR XR) 150 MG [id number]:Dep ression Take 1 Cap by mouth daily. [...] Kit 11/18/2017 Active Blood Glucose Monitoring Suppl (HandprintTOUCH VERIO) w/Device KIT Use as directed. Use [...] with levemir 100 Each 5 12/11/2020 Active Lactulose 10 GM/15ML Oral Solution (Constulose)Indicat [...] FOR NAUSEA 60 Tablet 5 12/09/2022 Active UltiCare Pen Ola 31G X 5 MM (Insulin Pen Needle) use TWICE DAILY 200 Each 3 12/23/2022 Active metFORMIN HCl ER 500 MG Oral [...] EVERY MORNING 90 Tablet 2 05/15/2023 Active Potassium Chloride Mag ER 20 MEQ Oral Tablet Extended Release TAKE 1 TABLET BY MOUTH EVERY MORNING when taking additional torsemide 30 Tablet 5 05/27/2023 Active Ipratropium-Albuter ol 0.5-2.5 (3) MG/3ML Inhalation [...] Oral Tablet (Demadex)Indication s:Atherosclerotic heart disease of [place] coronary artery with other forms of angina [...] minutes 25 Tablet 5 10/16/2023 Active Nystatin 079978 UNIT/GM External Powder (Nystop)Indications :Candidal intertrigo Apply topically to affected area 3 times a day. Apply to right breast until rash resolved. 30 g 10/16/2023 Active Nystatin 369960 UNIT/ML Mouth/Throat Suspension SWISH AND SWALLOW 5ML [...] on 12/05/2023 Vitamin D (Ergocalciferol) 1.25 MG (52410 UT) Oral Capsule (Drisdol)Indication s:Vitamin D deficiency TAKE 1 CAPSULE BY MOUTH ONCE WEEKLY 12 Capsule 3 11/10/2023 Active clonazePAM 0.5 MG Oral Tablet (KlonoPIN)Indicatio ns:Bipolar I disorder, most recent episode depressed, moderate (HCC) TAKE ONE TABLET BY MOUTH THREE TIMES DAILY 90 Tablet 11/13/2023 Active Insulin Glargine Solostar 100 UNIT/ML Subcutaneous [...] ONCE DAILY 90 Tablet 3 12/12/2023 Active documented as of this encounter (statuses as of 12/15/2023) Active Problems Problem Noted Date Diagnosed Date [...] mg daily Coronary artery disease invo lving [place] coronary artery of [place] heart without angina pectoris 11/15/2021 Last Assessment & Plan: Stable. No angina -continue toprol, ASA and statin Seasonal allergies 11/15/2021 Recurrent UTI 10/07/2021 Last Assessment & Plan: Followed by urology Pt is supposed to be on methenamine--will need to clarify with dgt that she is giving this. Pt also to see uro-cardiac rehab nurse and ID Type 2 diabetes mellitus [...] 01/16/22 Moderate aortic stenosis 05/06/2018 Anxiety 08/05/2017 Ndmniav-Etadw-Ffjdh disease 06/27/2015 Last Assessment & Plan: Frequent [...] as of this encounter (statuses as of 12/15/2023) Resolved Problems Problem Noted Date Diagnosed Date [...] liver 05/06/2018 Atherosclerotic heart diseas e of [place] coronary artery with other forms of angina [...] 10/31/2010 08/28/2018 Acute coronary syndrome 10/30/201001/04 [place] Research Other*[id number] 02/02/2010 04/18/2014 Overview: [place] [facility], Dr Joel CASAS Obesity, morbid (more [...] 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 [...] as of this encounter (statuses as of 12/15/2023) Immunizations Name Administration Dates Next Due COVID-19 [...] Smokeless Tobacco: Never Comments:Parents and then zachary sband smoked Alcohol Use Standard Drinks/Week Comments [...] Reading Time Taken Comments Blood Pressure 118/64 12/15/2023 2:09 PM EDT Pulse 76 12/15/2023 2:09 PM EDT Temperature 37.1 C (98.8 F) 12/15/2023 2:09 PM ED T Respiratory Rate 18 12/15/2023 2:09 PM EDT Oxygen Saturation 99% 12/15/2023 2:09 PM EDT Inhaled Oxygen Concentration - - Weight 110.2 kg (243 lb) 12/15/2023 2:09 PM EDT Height - - Body Mass Index 36.95 11/18/2023 6:03 PM EDT documented in this encounter Progress Notes * Connie Mccullough RN - 12/15/2023 1:49 PM EDT [facility] NurseDigital Media Representative Visit Date: 12/15/2023 Time: 1:55 PM Name: Angelina Ballard : 1950 Current Concerns: Pt seen for enrollment to [facility] Dtr and grand dtr are caregivers during the day and she has a caregiver for 2pm -10pm Has been seeing urology for recurrent UTI's and worsening urinary incontinence and plan is to get suprapubic catheter on 12/30 Recently completed course of Cefdinir Continues to have issues with burning and pain with urination Pt reports she has been having issues with left foot and knee pain since she had a fall last year Had CT scan on Friday and has f/u with Dr. Ruiz of [facility] on Friday this week Getting PT and OT through [facility] There is possibility that edema is lymphedema and there has been discussion of getting lymphedema therapist in the home in near future, per dtr Had mod nonpitting pedal edema of left foot, mild of right foot Checks blood sugar twice a day Reading was 164 this am Have been ranging 89 - 273 Unable to do bottles out med review today Dtr was unable to stay for whole visit and pt reports dtr has them in a lock box and she is unsure where they are - she takes care of all of her medications Physical Exam: BP 118/64 | Pulse 76 | Temp 37.1 C (98.8 F) | Resp 18 | Wt 110.2 kg (243 lb) | SpO2 99% | BMI 36.95 kg/m | BSA 2.3 m Pain 4 Physical Exam Constitutional: General: She is not in acute distress. Appearance: She is obese. Cardiovascular: Rate and Rhythm: Normal rate and regular rhythm. Pulses: Normal pulses. Heart sounds: Normal heart sounds. Pulmonary: Effort: Pulmonary effort is normal. Breath sounds: Normal breath sounds. Abdominal: General: Bowel sounds are normal. Palpations: Abdomen is soft. Musculoskeletal: Right lower leg: Edema (mild, nonpitting) present. Left lower leg: Edema (mod, nonpitting) present. Skin: General: Skin is warm and dry. Neurological: Mental Status: She is alert and oriented to person, place, and time. Problems/Symptoms: Review of Systems Constitutional: Negative. HENT: Negative. Eyes: Negative. Respiratory: Positive for cough (chronic, yellow mucus) and shortness of breath (MNOROE - at baseline). Cardiovascular: Positive for leg swelling. Gastrointestinal: Negative. Genitourinary: Positive for dysuria and pelvic pain. Musculoskeletal: Positive for arthralgias and gait problem. Neurological: Positive for headaches. Hematological: Bruises/bleeds easily. Psychiatric/Behavioral: Negative. Medication Reconciliation: (See medication list) Does patient take medications as ordered: Yes Patient Well Being: PHQ2/9: No questionnaires available. Pt lives alone in in senior apartment but has 24 hr caregiver through family and Family Care 1 dog in the apartment Ambulates with walker short distances but uses bedside commode Uses a w/c when going out of the home Has hx of falls [facility]-10 Completed this Visit: Yes. [facility]-10: Reason Completed: Enrollment [facility] ([facility]) Fall Risk Assessment Tool Age 65+: Yes (06/10/24 1400) Diagnosis (3 or more co-existing): Yes (12/15/231399) Prior history of falls within 3 months: Yes (12/15/231399) Incontinence: Yes (12/15/231399) Visual impairment: No (12/15/231399) Impaired functional mobility: Yes (12/15/231399) Environmental hazards: No (12/15/231399) Poly Pharmacy (4 or more prescriptions - any type): Yes (12/15/231399) Pain affecting level of function: Yes (12/15/231399) Cognitive impairment: No (12/15/231399) Score - a score of 4 or more is considered at risk for fallin (12/15/231399) [facility]-10 Interventions: Fall education provided, reviewed/provided Fall brochure Advanced Care Planning: POLST. Patient's Goals of Care: Stay out of the hospital No falls Get my body healed Reinforcement/Education: COPD: Pt instructed to: -Call with increased SOB, wheezing, chest tightness, increased cough, increased sputum with change in color or consistency and fever. -Wash hands often -Drink plenty of fluids -Use inhalers as directed, do not stop or skip doses -Avoid stress -Rest when tired or SOB -Avoid triggers -Clean inhalers once a week Reviewed HF symptom monitoring: -Weigh self daily in am, post-void and record -Do not add salt to food, avoid foods high in sodium -Limit fluids to 2 liters per day -Report the following: ->2 lb weight gain in one day or 5 lbs in a week to PCP -increased edema in feet, abdomen or hands -increased SOB and cough, especially if at night -increased fatigue or vertigo DIABETES: -Blood sugar testing schedule: Twice a day, once in the morning and again 2 hours after a meal. -Blood sugar goals: Less than 120, fasting and less than 180, 2 hours after a meal -Record and take to PCP appointments -Notify your doctor if your blood sugar is consistently above goal -Hypoglycemia (low blood sugar) action plan: If blood sugar is less than 70 or having symptoms of low blood sugar eat or drink a snack of 15gm of carbohydrate (2-3 glucose tablets, glass juice, 1Cnon-fat milk, etc) wait 15 min if blood sugar still low repeat snack, wait 15 minutes if still low call health care provider. Ask provider if a medication adjustment is needed if experiencing low blood sugars frequently, twice a week or more. -Hyperglycemia (high blood sugar) action Plan: Take medications as directed, test blood sugars frequently, if above goal, contact your health care provider. Ask for changes to medication if blood sugars continue to run above goal. -Eat three well balanced meals a day 5 servings fruit/vegetable per day Educated on home safety: Create a fall proof home Clear floors of clutter, loose wires, throw rugs, and cords. Make sure halls, stairways, and entrances are well lit. Install a nightlight in your bedroom, hallway and bathroom. Install grab bars or handrails in the bathroom and on stairs. Use a non-skid tub/shower mat. Avoid climbing on a chair; instead use a step stool with a high handrail. Keep sidewalks and steps in good repair Keep steps and sidewalks free of snow and ice. Using aids to support and prevent falls If you have poor balance or have fallen in the past, consider additional support such as a cane or walker. Use a cane with good support and that is the proper length for you. Use a walker if a cane doesnt provide enough support. Avoid medications that increase the risk of falling by causing dizziness, change in sensation or slowed reflexes. Certain medicines may cause falls - blood pressure pills, heart medicines, water pills, or sleepingpills. Be sure to understand each medicine that you are taking and any side effects that may occur. Improve your balance and flexibility with muscle strengthening exercises. Ask your health care provider for some exercises that will be right for you. Reinforced safety education and fall prevention. and Reinforced medication regimen. Timing., Dosing., and Purspose. Treatment/Plan: Continue meds as prescribed/reviewed Continue to check blood sugars twice a day Low Na, CCD diet Fall precautions - use walker at all times [facility] for PT/OT Ortho is Dr. Ruiz with [facility] Suprapubic cath to be place 12/30 Home Interventions Provided: Home Intervention: Other; eval Reinforced current Plan of Care, including self-management and medication regimen Updated Exacerbation Plan Patient's 'Red Flags': Foul smelling, dark urine, more cloudy Confusion Fever/chills Patient Needs to Remember: Call [facility] at with any new or worsening health concerns or problems, red flag symptoms. Referrals Needed: Other none Follow Up: Is there cellular connectivity/connectivity in the home? Yes Does the patient have internet in the home? Yes Patient encouraged to call the intake phone number for all urgent but not emergent issues. Is the patient new to [facility] within the last 30 days? Yes, Is this a Transitions of Care visit? No Provider is in agreement with Plan of Care: Yes Scheduled to follow up with patient in 3 weeks with RNCM, 3 weeks after with provider. Connie Mccullough RN 12/15/2023 1:55 PM documented in this encounter Plan of Treatment Upcoming Encounters Date Type Department Care Team (Latest Contact Info) Description 12/24/2023 9:40 AM EDT Office Visit Infectious Disease [facility] [place] [address] [place] [address] Buzz Wall MD [address] [place] [id number] 12/24/2023 11:30 AM EDT Nurse Only Ancillary [facility] [place] [address] [place] [address] [place], Nurse Fam Prac [facility] [address] [facility] [place] [address] 12/24/2023 12:00 PM EDT Laboratory Laboratory [facility] [place] [address] [place] [id number] [place], Lab [facility] [address] [facility] [place] [address] 12/31/2023 3:18 PM EDT Hospital Encounter OR [facility], Operating Room, [facility] - 4th Floor [address] [facility] [place] [id number] Alfredo Panda MD [address] [facility] [address] [place] [id number] 12/31/2023 3:18 PM EDT - 12/31/2023 4:20 PM EDT Surgery OR [facility], Operating Room, [facility] - 4th Floor [address] [facility] [place] [address] Alfredo Panda MD [address] [place] [address] CYSTOSTOMY WITH DRAINAGE OF BLADDER 01/05/2024 2:00 PM EDT Home Visit [facility], [facility] [address] [place] [address] Connie Mccullough RN [address] [place] [address] 01/16/2024 9:45 AM EDT Office Visit Urology Kimberly Harmon [address] [place] [address] Alfredo Panda MD [address] [place] [address] 01/26/2024 3:00 PM EDT Procedure Only Urology, [facility] [address] [place] [address] Alfredo Panda MD [address] [place] [address] 02/09/2024 9:00 AM EDT Home Visit [facility], [facility] [address] [place] [address] Kirby Valenzuela PA-C [address] [place] [address] 03/02/2024 4:00 PM EDT Imaging Radiology, [address] [place] [address] 06/08/2024 6:00 PM EST Office Visit [facility] [address] [place] [facility] [place] [address] Brian Domínguez MD [address] [facility] [place] [id number] Scheduled Procedures Name Priority Associated Diagnoses Date/Ti me CYSTOSTOMY WITH DRAINAGE OF BLADDER Urge incontinence 12/31/2023 3:18 PM EDT COLONOSCOPY FLEXIBLE PROXIMAL DIAGNOSTIC Recall [...] 06/10/2021, 08/29/2020, 08/01/2020 CKD PHOS USE SMARTSET 67290 10/24/202310/05, 02/18/2022, 02/17/2022, Additional history exists GFR 04/21/2024 10/21/2023, 07/08, 06/17/2023, Additional history exists Colonoscopy 05/20/2024 05/20/2014 Colorectal Cancer Screening 05/20/2024 HbA1c 06/11/2024 12/11/2023, 06/06, 10/23/2022, Additional history exists TSH 06/17/2024 06/17/2023, 05/08, 02/13/2023, Additional history exists Diabetic Foot Exam 10/15/2024 10/16/2023, 1 07/22/2019, 02/22/2019, Additional history exists Albumin/Creatinine Ratio 11/03/2024 024, 10/23/2022, 07/17/2022, Additional history exists CKD HGB USE SMARTSET 42885 12/10/202412/10, 08/04/2023, 08/04/2023, Additional history exists O2 [...] encounter Medical Devices Implanted Type Area Sales And In Home Delivery Specialist Device Identifier Shelf Expiration Date Model / Serial / Lot Sut Steel 6 M654g - [id number] Implanted:Qty: 3 on 02/15/2011 at OR [facility] N/A: Chest DO NOT USE 01/15/2015 M654G / / [id number] [facility] 225-241 - [id number] Implanted:Qty: 1 on 02/15/2011 at OR [facility] N/A: Chest [employer] 225-241 / / [id number] Sut Steel 6 M654g - [id number] Implanted:Qty: 1 on 02/15/2011 at OR [facility] N/A: Chest DO NOT USE 07/21/2015 M654G / / [id number] documented as of this encounter Advance Directives Documents on File Type Date Recorded 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
--- OUTSIDE RECORDS SUMMARY | 2024-03-03 08:17 | External Medical Summary | Summary of Care ---
Author Name Unknown Organization [facility] Address [address] [place] [address] Phone [phone] Care Team Providers Care Credit Checker Name Role Phone Carmen Sifuentes MD Primary Care Provider [phone]- [phone] Reason for Visit * Reason Comments eRx-Medication Refill Encounter Details Date Type Department Care Team (Late st Contact Info) Description 12/23/2023 Refill [facility] [address] [place] [address] Carmen Sifuentes MD [address] [place] [address] Allergies Active Allergy Reactions Criticality Noted Date Comments Propoxyphene Hcl Rash Low 10/29/2010 Fentanyl Diarrhea Low 04/26/2010 anxiety Methocarbamol Medium 10/05/2020 Other reaction(s): Delirium Methocarbamol Low 04/15/2007 Zolpidem Low 10/05/2020 Other reaction(s): Confusion documented as of this encounter (statuses as of 12/23/2023) Medications Medication Sig Dispensed Refills Start Date End Date Status venlafaxine XR (EFFEXOR XR) 150 MG [id number]:De pression Take 1 Cap by mouth daily. [...] 11/19/19 18 Active Blood Glucose Monitoring Suppl (ALICE App VERIO) w/Device KIT Use as directed. Use as directed. 1 Kit 11/01/19 19 Active Spacer/Aero-Holdin g Chambers WISAM Use with inhaler. Wheezing/bronchit is. 1 Device 04/08/20 19 Active Lancet Devices (CloudEndureTOUCH DELICA LANCING DEV) MISC Use four times [...] Tablet (Demadex)Indicatio ns:Atherosclerotic heart disease of [place] coronary artery with other forms of [...] BEFORE BEDTIME 180 Tablet 10/07/19 24 Active Tamsulosin HCl 0.4 MG [...] 25 Tablet 5 10/16/19 24 Active Nystatin 102520 UNIT/GM External Powder (Nystop)Indication s:Candidal intertrigo Apply topically to affected area 3 times a day. Apply to right breast until rash resolved. 30 g 10/16/19 24 Active Nystatin 364097 UNIT/ML Mouth/Throat Suspension SWISH AND SWALLOW 5ML [...] on 12/05/2023 Vitamin D (Ergocalciferol) 1.25 MG (70502 UT) Oral Capsule (Drisdol)Indicatio ns:Vitamin D deficiency [...] day 200 Each 2 12/23/19 24 Active NovoFine 32G X 6 MM (NOVOFINE 32G PEN NEEDLE) using twice a day with levemir 100 Each 5 12/12/19 21 024 Discontinued(Ms dication List Clean Up) UltiCare Pen [place] 31G X 5 MM (Insulin Pen Needle) use TWICE DAILY 200 Each 3 12/24/19 23 024 Discontinued metFORMIN HCl ER 500 MG Oral Tablet Extended Release 24 Hour (Glucophage XR) TAKE 1 TABLET BY MOUTH ONCE DAILY with dinner 90 Tablet 2 03/21/20 23 024 Discontinued documented as of this encounter (statuses as of 12/23/2023) Active Problems Problem Noted Date Diagnosed Date [...] mg daily Coronary artery disease invo lving [place] coronary artery of [place] heart without angina pectoris 11/15/2021 Last Assessment & Plan: Stable. No angina -continue toprol, ASA and statin Seasonal allergies 11/15/2021 Recurrent UTI 10/07/2021 Last Assessment & Plan: Followed by urology Pt is supposed to be on methenamine--will need to clarify with dgt that she is giving this. 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 09/29/2019 Diabetic gastroparesis [...] 01/16/22 Moderate aortic stenosis 05/06/2018 Anxiety 08/05/2017 Lohwmsu-Ldwzu-Fpsbf disease 06/27/2015 Last Assessment & Plan: Frequent [...] as of this encounter (statuses as of 12/23/2023) Resolved Problems Problem Noted Date Diagnosed Date [...] liver 05/06/2018 Atherosclerotic heart diseas e of [place] coronary artery with other forms of [...] stenosis 10/31/2010 08/28/2018 Acute coronary syndrome 10/30/201001/04 BELLE GLADE Research Other*[id number] 02/02/2010 04/18/2014 Overview: [place] [facility], Dr Joel Kwon PI Obesity, morbid [...] as of this encounter (statuses as of 12/23/2023) Immunizations Name Administration Dates Next Due COVID-19 [...] encounter Miscellaneous Notes * Telephone Encounter - Amy Abdullahi [facility] - 12/23/2023 3:04 PM EDTSigned Prescriptions: Disp Refills metFORMIN HCl ER 500 MG Oral Tablet Extend*90 Tab*3 Sig: TAKE 1 TABLET BY MOUTH ONCE DAILY with dinnerAuthorizing Provider: CARMEN SIFUENTES User: AMY ABDULLAHI BD Pen Needle Mini U/F 31G X 5 MM (Insulin*200 Ea*2 Sig: use twice a dayAuthorizing Provider: CARMEN SIFUENTES User: AMY ABDULLAHI * Telephone Encounter - Cheryl Mark [facility] - 12/23/2023 7:19 AM EDT Pending Prescriptions: Disp Refills metFORMIN HCl ER 500 MG Oral Tablet Extend*90 Tab*0 Sig: TAKE 1TABLET BY MOUTH ONCE DAILY with dinner BD Pen Needle Mini U/F 31G X 5 MM [Pharmac* 0 Sig: use twicea day documented in this encounter Plan of Treatment Upcoming Encounters Date Type Department Care Team (Latest Contact Info) Description 12/24/2023 9:40 AM EDT Office Visit Infectious Disease [facility] [place] [address] [facility] [place] [address] Buzz Wall MD [address] [place] [address] 12/24/2023 11:30 AM EDT Nurse Only Ancillary [facility] [address] [place] [address] Lisa, Nurse Fam Prac [address] [place] [address] 12/24/2023 12:00 PM EDT Laboratory Laboratory [facility] [place] [address] [facility] [place] [address] [place], Lab [address] [place] [address] 12/31/2023 3:28 PM EDT Hospital Encounter OR [facility], Operating Room, [facility] Floor [address] [facility] [place] [id number] Alfredo Panda MD [address] [address] [place] [address] 12/31/2023 3:28 PM EDT - 12/31/2023 4:30 PM EDT Surgery OR [facility], Operating Room, [facility] - 4th Floor [address] [place] [address] Alfredo Panda MD [address] [place] [address] CYSTOSTOMY WITH DRAINAGE OF BLADDER 01/05/2024 2:00 PM EDT Home Visit [facility] [place], [facility] [address] [place] [address] Connie Mccullough RN [address] [place] [address] 01/16/2024 9:45 AM EDT Office Visit Urology Kimberly Harmon [address] [place] [address] Alfredo Panda MD [address] [place] [address] 01/26/2024 3:00 PM EDT Procedure Only Urology, [facility] [address] [place] [address] Alfredo Panda MD [address] [place] [address] 02/09/2024 9:00 AM EDT Home Visit [facility] [place], [facility] [address] [place] [address] Kirby Valenzuela PA-C [address] [place] [address] 03/02/2024 4:00 PM EDT Imaging Radiology, [address] [place] [address] 06/08/2024 6:00 PM EST Office Visit [address] [phone] Carmen Sifuentes MD [address] [place] [address] Scheduled Procedures Name Priority Associated Diagnoses Date/Ti [...] 06/10/2021, 08/29/2020, 08/01/2020 CKD PHOS USE SMARTSET 59956 10/24/202310/05, 02/18/2022, 02/17/2022, Additional history exists GFR 04/21/2024 10/21/2023, 07/08, 06/17/2023, Additional history exists Colonoscopy 05/20/2024 05/20/2014 Colorectal Cancer Screening 05/20/2024 HbA1c 06/11/2024 12/11/2023, 06/06, 10/23/2022, Additional history exists TSH 06/17/2024 06/17/2023, 05/08, 02/13/2023, Additional history exists Diabetic Foot Exam 10/15/2024 10/16/2023, 1 07/22/2019, 02/22/2019, Additional history exists Albumin/Creatinine Ratio 11/03/2024 024, 10/23/2022, 07/17/2022, Additional history exists CKD HGB USE SMARTSET 18786 12/10/202412/10, 08/04/2023, 08/04/2023, Additional history exists O2 [...] this encounter Medical Devices Implanted Type Area Ekg Monitor Device Identifier Shelf Expiration Date Model / Serial / Lot Sut Steel 6 M654g - [id number] Implanted:Qty: 3 on 02/15/2011 at OR [facility] N/A: Chest DO NOT USE 01/15/2015 M654G / / [id number] Band Magdy 225-241 - [id number] Implanted:Qty: 1 on 02/15/2011 at OR [facility] N/A: Chest [employer] 225-241 / / [id number] Sut Steel 6 M654g - [id number] Implanted:Qty: 1 on 02/15/2011 at OR [facility] N/A: Chest DO NOT USE 07/21/2015 M654G / / [id number] documented as of this encounter Advance Directives Documents on File Type Date Recorded 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
--- OUTSIDE RECORDS SUMMARY | 2024-03-03 08:17 | External Medical Summary | Summary of Care ---
Author Name Unknown Organization [facility] Address [address] [place] [address] Phone [phone] Care Team Providers Care Administrative Office Assistant Name Role Phone Brian Domínguez MD Primary Care Provider [phone]- [phone] Reason for Visit * Reason Comments eRx-Medication Refill Encounter Details Date Type Department Care Team (Late st Contact Info) Description 12/16/2023 Refill [facility] [address] [place] [address] Brian Domínguez MD [address] [place] [address] Bipolar I disorder, most recent episode depressed, moderate (HCC) Allergies Active Allergy Reactions Criticality Noted Date Comments Propoxyphene Hcl Rash Low 10/29/2010 Fentanyl Diarrhea Low 04/26/2010 anxiety Methocarbamol Medium 10/05/2020 Other reaction(s): Delirium Methocarbamol Low 04/15/2007 Zolpidem Low 10/05/2020 Other reaction(s): Confusion documented as of this encounter (statuses as of 12/16/2023) Medications Medication Sig Dispensed Refills Start Date End Date Status venlafaxine XR (EFFEXOR XR) 150 MG [id number]:Dep ression Take 1 Cap by mouth daily. [...] Kit 11/18/2017 Active Blood Glucose Monitoring Suppl (ZubkaUCH VERIO) w/Device KIT Use as directed. Use as directed. 1 Kit 10/31/2018 Active Spacer/Aero-Holding Chambers WISAM Use with inhaler. Wheezing/bronchitis . 1 Device 04/08/2019 Active Lancet Devices ([employer]athur[employer] Resources LimitedTOUCH DELICA LANCING DEV) MISC Use four times [...] 60 Tablet 5 12/09/2022 Active UltiCare Pen [place] 31G X 5 MM (Insulin Pen Needle) [...] Oral Tablet (Demadex)Indication s:Atherosclerotic heart disease of [place] coronary artery with other forms of angina [...] minutes 25 Tablet 5 10/16/2023 Active Nystatin 752026 UNIT/GM External Powder (Nystop)Indications :Candidal intertrigo Apply topically to affected area 3 times a day. Apply to right breast until rash resolved. 30 g 10/16/2023 Active Nystatin 148682 UNIT/ML Mouth/Throat Suspension SWISH AND SWALLOW 5ML [...] on 12/05/2023 Vitamin D (Ergocalciferol) 1.25 MG (43427 UT) Oral Capsule (Drisdol)Indication s:Vitamin D deficiency [...] as of this encounter (statuses as of 12/16/2023) Active Problems Problem Noted Date Diagnosed Date [...] mg daily Coronary artery disease invo lving [place] coronary artery of red [place] heart without angina pectoris 11/15/2021 Last Assessment & Plan: Stable. No angina -continue toprol, ASA and statin Seasonal allergies 11/15/2021 Recurrent UTI 10/07/2021 Last Assessment & Plan: Followed by urology Pt is supposed to be on methenamine--will need to clarify with dgt that she is giving this. 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-cuff setter overlock and ID Type 2 diabetes mellitus wit [...] 01/16/22 Moderate aortic stenosis 05/06/2018 Anxiety 08/05/2017 Bknilxf-Nsoay-Nrawz disease 06/27/2015 Last Assessment & Plan: Frequent [...] as of this encounter (statuses as of 12/16/2023) Resolved Problems Problem Noted Date Diagnosed Date [...] liver 05/06/2018 Atherosclerotic heart diseas e of [place] coronary artery with other forms of angina [...] stenosis 10/31/2010 08/28/2018 Acute coronary syndrome 10/30/201001/04 SAVANNAH Research Other*[id number] 02/02/2010 04/18/2014 Overview: [facility], Dr Joel CASAS Obesity, morbid (more [...] as of this encounter (statuses as of 12/16/2023) Immunizations Name Administration Dates Next Due COVID-19 [...] encounter Miscellaneous Notes * Telephone Encounter - Shailesh Greenwood RPh - 12/16/2023 12:24 PM EDTRefused Prescriptions: Disp Refills clonazePAM 0.5 MG Oral Tablet (KlonoPIN) 90 Tab*0 Sig: TAKE 1 TABLET BY MOUTH THREE TIMES DAILYRefused By: Katherine GREENWOOD for Refusal: Duplicate Request- documented in this encounter Plan of Treatment Upcoming Encounters Date Type Department Care Team (Latest Contact Info) Description 12/24/2023 9:40 AM EDT Office Visit Infectious Disease [facility] [address] [place] [address] [address] Buzz Wall MD [address] [place] [address] 12/24/2023 11:30 AM EDT Nurse Only [facility] [place] [address] Lisa, Nurse Fam Prac [facility] [address] [facility] [place] [address] 12/24/2023 12:00 PM EDT Laboratory Laboratory [facility] [place] [address] [place] [address] [address] [place] [address] 12/31/2023 3:18 PM EDT Hospital Encounter [facility], Operating Room, [facility] - 4th Floor [address] [place] [address] Alfredo Panda MD [address] [place] [address] 12/31/2023 3:18 PM EDT - 12/31/2023 4:20 PM EDT Surgery OR [facility], Operating Room, [facility] - 4th Floor [address] [place] [address] Alfredo Panda MD [address] [place] [address] CYSTOSTOMY WITH DRAINAGE OF BLADDER 01/05/2024 2:00 PM EDT Home Visit [facility] [address] [facility] [place] [address] Connie Mccullough RN [address] [place] [address] 01/16/2024 9:45 AM EDT Office Visit Urology Kimberly Harmon [address] [place] [address] Alfredo Panda MD [address] [place] [address] 01/26/2024 3:00 PM EDT Procedure Only Urology, [facility] [address] [place] [address] Alfredo Panda MD [address] [place] [address] 02/09/2024 9:00 AM EDT [facility] Visit [facility], [facility] [address] [place] [address] Kirby Valenzuela PA-C [address] [place] [address] 03/02/2024 4:00 PM EDT Imaging Radiology, [facility] [address] [facility] [address] 06/08/2024 6:00 PM EST Office Visit [facility] [address] [place] [address] Brian Domínguez MD [address] [place] [address] Scheduled Procedures Name Priority Associated Diagnoses Date/Ti [...] 06/10/2021, 08/29/2020, 08/01/2020 CKD PHOS USE SMARTSET 57362 10/24/202310/05, 02/18/2022, 02/17/2022, Additional history exists GFR 04/21/2024 10/21/2023, 07/08, 06/17/2023, Additional history exists Colonoscopy 05/20/2024 05/20/2014 Colorectal Cancer Screening 05/20/2024 HbA1c 06/11/2024 12/11/2023, 06/06, 10/23/2022, Additional history exists TSH 06/17/2024 06/17/2023, 05/08, 02/13/2023, Additional history exists Diabetic Foot Exam 10/15/2024 10/16/2023, 1 07/22/2019, 02/22/2019, Additional history exists Albumin/Creatinine Ratio 11/03/2024 024, 10/23/2022, 07/17/2022, Additional history exists CKD HGB USE SMARTSET 17458 12/10/202412/10, 08/04/2023, 08/04/2023, Additional history exists O2 [...] encounter Medical Devices Implanted Type Area Assistant Real Estate Manager Device Identifier Shelf Expiration Date Model / Serial / Lot Sut Steel 6 M654g - [id number] Implanted:Qty: 3 on 02/15/2011 at [place] [facility] N/A: Chest DO NOT USE 01/15/2015 M654G / / [id number] Gaston Fuentesham 225-823 - [id number] Implanted:Qty: 1 on 02/15/2011 at OR [facility] N/A: Chest [employer] 225-241 / / [id number] Sut Steel 6 M654g - [id number] Implanted:Qty: 1 on 02/15/2011 at [place] [facility] N/A: Chest DO NOT USE 07/21/2015 M654G / / [id number] documented as of this encounter Visit Diagnoses Diagnosis Urge incontinence- Primary Bipolar I disorder, most recent episode depressed, moderate (HCC) Bipolar I disorder, most recent episode (or current) depressed, moderate Urge incontinence documented in this encounter Advance Directives Documents on File Type Date Recorded 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
--- OUTSIDE RECORDS SUMMARY | 2024-03-03 08:17 | External Medical Summary | Summary of Care ---
Author Name Unknown Organization [facility] Address [address] [place] [address] Phone [phone] Care Team Providers Care Car Retarder Operator Name Role Phone Carmen Sifuentes MD Primary Care Provider [phone] Reason for Visit * Reason Onset Date Comments Medication Refill 12/15/2023 Encounter Details Date Type Department Care Team (Late st Contact Info) Description 12/15/2023 Refill [facility] [address] [place] [address] Carmen Sifuentes MD [address] [place] [address] Bipolar I disorder, most recent [...] Status venlafaxine XR (EFFEXOR XR) 150 MG [id number]:Dep ression Take 1 Cap by mouth daily. [...] Kit 8 Active Blood Glucose Monitoring Suppl ([employer] VERIO) w/Device KIT Use as directed. Use as directed. 1 Kit 9 Active Spacer/Aero-Holding Chambers WISAM Use with inhaler. Wheezing/bronchiti s. 1 Device 9 Active Lancet Devices (TradegeckoTOUCH DELICA LANCING DEV) MISC Use four times [...] with levemir 100 Each 5 1 Active Lactulose 10 GM/15ML Oral Solution [...] FOR NAUSEA 60 Tablet 5 3 Active UltiCare Pen Tebbetts 31G X 5 MM (Insulin Pen Needle) use TWICE DAILY 200 Each 3 3 Active metFORMIN HCl ER 500 MG [...] EVERY MORNING 90 Tablet 2 3 Active Potassium Chloride Mag ER 20 MEQ Oral Tablet Extended Release TAKE 1 TABLET BY MOUTH EVERY MORNING when taking additional torsemide 30 Tablet 5 3 Active Ipratropium-Albuter ol 0.5-2.5 [...] Oral Tablet (Demadex)Indication s:Atherosclerotic heart disease of [place] coronary artery with other forms of angina [...] FOUR TIMES A DAY Dx:E11.4 360 Each 4 Active Vitamin C 500 MG Oral [...] per week 6 mL 1 4 Active PEG 3350 17 GM/SCOOP [...] minutes 25 Tablet 5 4 Active Nystatin 259914 UNIT/GM External Powder (Nystop)Indications :Candidal intertrigo Apply topically to affected area 3 times a day. Apply to right breast until rash resolved. 30 g 4 Active Nystatin 325408 UNIT/ML Mouth/Throat Suspension SWISH AND SWALLOW 5ML IN THE MORNING AND 5ML AT NOON AND 5 ML IN THE EVENING AND 5ML BEFORE BEDTIME, FOR THRUSH 240 mL 1 4 Active Metoprolol Succinate ER 25 MG Oral Tablet Extended Release 24 Hour (toPROL XL)Indications:HTN, goal below 130/80 TAKE 1 TABLET BY MOUTH EVERY MORNING 90 Tablet 4 Active Nitrofurantoin Monohyd Macro 100 MG Oral Capsule (Macrobid) Take 1 Capsule by mouth in the morning and 1 Capsule before bedtime. With food.. 60 Capsule 4 Active Additional Information Patient not taking.Reported on 12/05/2023 Vitamin D (Ergocalciferol) 1.25 MG (60645 UT) Oral Capsule (Drisdol)Indication s:Vitamin D deficiency [...] MOUTH THREE TIMES DAILY 90 Tablet 4 12/15/19 24 Discontinu ed(Refill) documented as of this [...] mg daily Coronary artery disease invo lving [place] coronary artery of [place] heart without angina pectoris 11/15/2021 Last Assessment & Plan: Stable. No angina -continue toprol, ASA and statin Seasonal allergies 11/15/2021 Recurrent UTI 10/07/2021 Last Assessment & Plan: Followed by urology Pt is supposed to be on methenamine--will need to clarify with dgt that she is giving this. 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 of ant icoagulant therapy [...] Telephone Encounter - Carmen Sifuentes MD - 12/16/2023 12:56 PM EDTSigned Prescriptions: Disp Refills clonazePAM 0.5 MG Oral Tablet (KlonoPIN) 90 Tab*0 Sig: TAKE ONE TABLET BY MOUTH THREE TIMES DAILYAuthorizing Provider: CARMEN SIFUENTES * Telephone Encounter - Trish Goodwin [facility] ED - 12/16/2023 12:23 PM EDT Pending Prescriptions: Disp Refills clonazePAM 0.5 MG Oral Tablet (KlonoPIN) 90 Tab*0 Sig: TAKE ONE TABLET BY MOUTH THREE TIMES DAILY * Telephone Encounter - Trish Goodwin RP - 12/16/2023 12:23 PM EDT I have reviewed the patients controlled substance dispensing history in the Prescription Drug Monitoring Program in compliance with the [facility] regulations before prescribing a controlled substance. PDMP checked on 12/16/2023. Pending Prescriptions: Disp Refills clonazePAM 0.5 MG Oral Tablet (KlonoPIN) 90 Tab*0 Sig: TAKE ONE TABLET BY MOUTH THREE TIMES DAILY Last Visit: 11/18/2023 (in office), 06/20/2023 (telemedicine) Next Visit: 06/08/2024 Date medication was last filled: 11/12 Date medication is due for refill: 12/11 Pharmacy: [id number] [facility] Is this request for a controlled substance? Yes and Urine Drug Screen Not completed Toxicology results: No results found. However, due to the size of the patient record, not all encounters were searched.Please check Results Review for a complete set of results. Please approve if appropriate. Thank you, Trish Goodwin PharmD. Clinical Pharmacist [facility] ([facility]) 12/16/2023, 12:23 PM * Telephone Encounter - Rashmi Porter PHARM Tech - 12/16/2023 12:10 PM EDT Pt requesting HIGH PRIORITY due to pt is out of meds Pt calling to check on status of clonazepam 0.5 mg. Caller can be reached at [phone]. Thank you, Rashmi Porter CPhT Cargo Handler II [facility]) 12/16/2023,12:10 PM * Telephone Encounter - Kiki Salas CPhT - 12/15/2023 8:48 AM EDT Did you pend patient's preferred [...] appointment Last date the medication was ordered: 11/13/2023 Is this request for a controlled substance?Yes, What was the last refill date 11/13/2023 w/ quantity 90 and dosage 0.5 and Urine Drug Screen Not completed Urine [...] 9:40 AM EDT Office Visit Infectious Disease [facility] [place] [address] [facility] [place] [address] Buzz Wall MD [address] [place] [address] 12/24/2023 11:30 AM EDT Nurse Only Ancillary [facility] [place] [address] [place] [address] [place], Nurse Fam Prac [address] [place] [address] 12/24/2023 12:00 PM EDT Laboratory Laboratory [facility] [place] [address] [facility] [place] [phone] [place], Lab [address] [facility] [address] 12/31/2023 3:18 PM EDT Hospital Encounter OR [facility], Operating Room, [facility] Floor [address] [place] [address] Alfredo Panda MD [address] [place] [address] 12/31/2023 3:18 PM EDT - 12/31/2023 4:20 PM EDT Surgery [facility], Operating Room, [facility] Floor [address] [place] [address] Alfredo Panda MD [address] [place] [address] CYSTOSTOMY WITH DRAINAGE OF BLADDER 01/05/2024 2:00 PM EDT Home Visit [place], [facility] [address] [place] [address] Connie Mccullough RN [address] [place] [address] 01/16/2024 9:45 AM EDT Office Visit Urology Kimberly Harmon [address] [place] [address] Alfredo Panda MD [address] [place] [address] 01/26/2024 3:00 PM EDT Procedure Only Urology, [facility] [address] [place] [address] Alfredo Panda MD [address] [place] [address] 02/09/2024 9:00 AM EDT Home Visit [facility] [place], [facility] [address] [place] [address] Kirby Valenzuela PA-C [address] [address] 03/02/2024 4:00 PM EDT Imaging Radiology, [address] [place] [address] 06/08/2024 6:00 PM EST Office Visit [facility] [address] [facility] [id number] Carmen Sifuentes MD [address] [place] [facility] [place] [address] Scheduled Procedures Name Priority Associated Diagnoses Date/Ti [...] 06/10/2021, 08/29/2020, 08/01/2020 CKD PHOS USE SMARTSET 97248 10/24/202310/05, 02/18/2022, 02/17/2022, Additional history exists GFR 04/21/2024 10/21/2023, 07/08, 06/17/2023, Additional history exists Colonoscopy 05/20/2024 05/20/2014 Colorectal Cancer Screening 05/20/2024 HbA1c 06/11/2024 12/11/2023, 06/06, 10/23/2022, Additional history exists TSH 06/17/2024 06/17/2023, 05/08, 02/13/2023, Additional history exists Diabetic Foot Exam 10/15/2024 10/16/2023, 1 07/22/2019, 02/22/2019, Additional history exists Albumin/Creatinine Ratio 11/03/2024 024, 10/23/2022, 07/17/2022, Additional history exists CKD HGB USE SMARTSET 72937 12/10/202412/10, 08/04/2023, 08/04/2023, Additional history exists O2 [...] this encounter Medical Devices Implanted Type Area Project Financial Analyst Device Identifier Shelf Expiration Date Model / Serial / Lot Sut Steel 6 M654g - [id number] Implanted:Qty: 3 on 02/15/2011 at OR [facility] N/A: Chest DO NOT USE 01/15/2015 M654G / / [id number] Band Magdy 225-241 - [id number] Implanted:Qty: 1 on 02/15/2011 at OR [facility] N/A: Chest [employer] 225-241 / / [id number] Sut Steel 6 M654g - [id number] Implanted:Qty: 1 on 02/15/2011 at OR [facility] N/A: Chest DO NOT USE 07/21/2015 M654G / / [id number] documented as of this encounter Visit Diagnoses Diagnosis Urge incontinence- Primary Bipolar I disorder, most recent episode depressed, moderate (HCC) Bipolar I disorder, most recent episode (or current) depressed, moderate Urge incontinence documented in this encounter Advance Directives Documents on File Type Date Recorded Patient Track Inspecting Supervisor Expl cheyanneion DURAN 05/06/2018 POL * [...] Agents on File Name Relationship Healthcare Agent [facility] p Communication Carolyn Ballard Adult Child Health Care Agent Care Teams Car Retarder Operator Relationship Specialty Start Date End Date Carmen Sifuentes MD [address] [place] [address] PCP - General Family Medicine 07/16/17 documented as of this encounter
--- OUTSIDE RECORDS SUMMARY | 2024-03-03 08:17 | External Medical Summary ---
Author Name Unknown Address Unknown Organization [id number]:[facility] [address] [facility] [address] Laboratory Report Ordering Provider Test Date Status DAIANA SAINI 12/24/2023 10:01:25 Final <10,000 colonies/ml mixed no rmal indira Observation Date Value Abnormality Reference (Units ) Status Bacteria identified in Specimen by Culture 12/24/2023 10:01:25 [id number]^ESCHE RICHIA COLI Abnormal Final >100,000 colonies/mL Escheri silas coli Bacteria identified in Specimen by Culture 12/24/2023 10:01:25 [id number]^ENTEROBACTER CLOACA E COMPLEX Abnormal Final 10,000 to 100,000 colonies/m L Enterobacter cloacae complex
This bacterial species is known to produce an inducible AmpC beta lactamase. Except for the treatment of simple cystitis, recommend avoiding penicillins or cephalosporins other than cefepime. Performing Location [facility] [place] [address] [facility] [address] Ordering Provider Test Date Status DAIANA SAINI 12/24/2023 10:01:25 Final Observation Date Value Abnormality Reference (Units ) Status Ampicillin 12/24/2023 10:01:25 4 Susceptible Final Cefazolin 12/24/2023 10:01:25 <=4 Susceptible Final Cefepime susceptibility 12/24/2023 10:01:25 <=1 Susceptible Final Ceftriaxone suceptibility 12/24/2023 10:01:25 <=1 Susceptible Final Ciprofloxacin 12/24/2023 10:01:25 <=0.25 Susceptible Final Due to serious side effects, the FDA has advised against using Ciprofloxacin to treat uncomplicated UTIs and respiratory tract infections unless there are no alternative treatment options. Gentamicin susceptibility 12/24/2023 10:01:25 <=1 Susc eptible Final Nitrofurantoin susceptibility 12/24/2023 10:01:25 <=16 Susceptible Final Piperacillin + Tazobactamsusceptibility 12/24/2023 10:01:25 <=4 Susceptible Final TMP-SMZ susceptibility 12/24/2023 10:01:25 <=20 Suscept ible Final Performing Location [facility] [place] [address] [place] [address] Ordering Provider Test Date Status DAIANA SAINI 12/24/2023 10:01:25 Final Observation Date Value Abnormality Reference (Units ) Status Cefepime susceptibility 12/24/2023 10:01:25 <=1 Susceptible Final cefOXitin [Susceptibility] 12/24/2023 10:01:25 >=64 Resistant Final Ceftriaxone suceptibility 12/24/2023 10:01:25 <=1 Susceptible Final Avoid unless for the treatme nt of simple cystitis. Ciprofloxacin 12/24/2023 10:01:25 <=0.25 Susceptible Final Due to serious side effects, the FDA has advised against using Ciprofloxacin to treat uncomplicated UTIs and respiratory tract infections unless there are no alternative treatment options. Gentamicin susceptibility 12/24/2023 10:01:25 <=1 Susc eptible Final Nitrofurantoin susceptibility 12/24/2023 10:01:25 64 Intermediate Final Piperacillin + Tazobactamsusceptibility 12/24/2023 10:01:25 <=4 Susceptible Final Avoid unless for the treatme nt of simple cystitis. TMP-SMZ susceptibility 12/24/2023 10:01:25 <=20 Suscept ible Final Test: Culture, Urine, Quanti tative
Specimen Source: Urine, Clean Catch
Specimen Type: Urine
Specimen Date: 12/24/2023 100
Result Date: 12/27/2023 0828
Result Status: Final result
Abnormal: Yes
Resulting Lab: [facility]
[address]
[place] [address]

CULTURE

>100,000 colonies/mL Escherichia coli (Abnormal)

10,000 to 100,000 colonies/mL Enterobacter cloacae complex (Abnormal)

This bacterial species is known to produce an inducible AmpC beta
lactamase. Except for the treatment of simple cystitis, recommend avoiding
penicillins or cephalosporins other than cefepime.

<10,000 colonies/ml mixed normal indira

SUSCEPTIBILITY

Escherichia coli Enterobacter cloacae
complex
METHOD MICROBROTH DILUTIONS MICROBROTH DILUTIONS

AMPICILLIN 4 Susceptible
CEFAZOLIN <=4 Susceptible
CEFEPIME <=1 Susceptible <=1 Susceptible
CEFOXITIN >=64 Resistant
CEFTRIAXONE <=1 Susceptible <=1 Susceptible
[1]
CIPROFLOXACIN <=0.25 Susceptible <=0.25 Susceptible
[2] [3]
GENTAMICIN <=1 Susceptible <=1 Susceptible
NITROFURANTOIN <=16 Susceptible 64 Intermediate
PIPERACILLIN TAZOBACTAM <=4 Susceptible <=4 Susceptible
[4]
TRIMETH/SULFAMETHOXAZOLE <=20 Susceptible <=20 Susceptible

[1] Avoid unless for the treatment of simple cystitis.

[2] Due to serious side effects, the FDA has advised against using
Ciprofloxacin to treat uncomplicated UTIs and respiratory tract infections
unless there are no alternative treatment options.

[3] Due to serious side effects, the FDA has advised against using
Ciprofloxacin to treat uncomplicated UTIs and respiratory tract infections
unless there are no alternative treatment options.

[4] Avoid unless for the treatment of simple cystitis.

null Performing Location [facility] [place] [address] [facility] [address]
--- OUTSIDE RECORDS SUMMARY | 2024-03-03 08:18 | External Medical Summary | Summary of Care ---
Author Name Unknown Organization [facility] Address [address] [place] [address] Phone [phone] Care Team Providers Care Commissioner Public Works Name Role Phone Brian Domínguez MD Primary Care Provider [phone]- [phone] Reason for Visit * Reason Comments eRx-Medication Refill Encounter Details Date Type Department Care Team (Late st Contact Info) Description 12/11/2023 Refill Urology Kimberly Harmon [address] [place] [address] Alfredo Ahmadi MD [address] [place] [id number] Allergies Active Allergy Reactions Criticality Noted Date Comments Propoxyphene Hcl Rash Low 10/29/2010 Fentanyl Diarrhea Low 04/26/2010 anxiety Methocarbamol Medium 10/05/2020 Other reaction(s): Delirium Methocarbamol Low 04/15/2007 Zolpidem Low 10/05/2020 Other reaction(s): Confusion documented as of this encounter (statuses as of 12/11/2023) Medications Medication Sig Dispensed Refills Start Date End Date Status venlafaxine XR (EFFEXOR XR) 150 MG LM14Iytauvzixop:Dep ression Take 1 Cap by mouth daily. [...] Kit 11/18/2017 Active Blood Glucose Monitoring Suppl (I-TechUCH VERIO) w/Device KIT Use as directed. Use as directed. 1 Kit 10/31/2018 Active Spacer/Aero-Holding Chambers WISAM Use with inhaler. Wheezing/bronchitis . 1 Device 04/08/2019 Active Lancet Devices (Turnstyle SolutionsTOUCH DELICA LANCING DEV) MISC Use four [...] 60 Tablet 5 12/09/2022 Active UltiCare Pen [place] 31G X 5 MM (Insulin Pen Needle) [...] before bedtime. 360 mL 3 05/28/2023 Active Montelukast Sodium 10 MG Oral Tablet (Singulair)Indicati ons:Nasal sinus congestion,PND (post-nasal drip) TAKE 1 TABLET BY MOUTH ONCE DAILY 90 Tablet 3 06/14/2023 Active Zoster Vac Recomb Adjuvanted 50 MCG/0.5ML [...] Oral Tablet (Demadex)Indication s:Atherosclerotic heart disease of [place] coronary artery with other forms of angina pectoris (HCC),Hypertensive heart disease with chronic diastolic congestive heart failure (HCC) TAKE 1 TABLET BY MOUTH EVERY MORNING. MAY TAKE 1 ADDITIONAL TABLET NEEDED FOR SWELLING. 90 Tablet 07/08/2023 Active Xifaxan 550 MG Oral Tablet (rifAXIMin)Indicati ons:GONZALEZ (nonalcoholic steatohepatitis),Ch ronic liver disease and cirrhosis (HCC),Hepatic encephalopathy (HCC) TAKE 1 TABLET BY MOUTH TWICE DAILY 60 Tablet 07/16/2023 Active Famotidine 40 MG Oral Tablet (Pepcid)Indications :Gastroesophageal reflux disease with esophagitis without hemorrhage TAKE 1 TABLET BY MOUTH EVERY MORNING 90 Tablet 07/19/2023 Active OneTouch Verio In Vitro Strip (Glucose Blood)Indications:T ype 2 diabetes mellitus with diabetic neuropathy, with long-term current use of insulin (HCC) use to test blood sugar 3 times daily 300 Strip 07/21/2023 Active OneTouch Delica Lancets 33G USE UP TO FOUR TIMES A DAY Dx:E11.4 360 Each 07/30/2023 Active Vitamin C 500 MG Oral Tablet (Ascorbic Acid)Indications:Re current UTI TAKE 1 TABLET BY MOUTH TWICE DAILY every morning and before bedtime 180 Tablet 08/13/2023 Active Pantoprazole Sodium 40 MG Oral Tablet Delayed Release (Protonix)Indicatio ns:Gastroesophageal reflux disease without esophagitis TAKE 1 TABLET BY MOUTH TWICE DAILY every morning and every evening 180 Tablet 08/14/2023 Active Estradiol 0.1 MG/GM Vaginal Cream (Estrace) Apply pea sized amount (0.5 gm) vaginally every other night 42.5 g 08/20/2023 Active Levothyroxine Sodium 88 MCG Oral Tablet (Levoxyl)Indication s:Hypothyroidism TAKE 1 TABLET BY MOUTH ONCE DAILY AT LEAST 30 MINUTES BEFORE BREAKFAST AND OTHER MEDICATIONS 90 Tablet 09/08/2023 Active Trulicity 4.5 MG/0.5ML Subcutaneous Solution Pen-injector (Dulaglutide) inject 4.5mg under the skin once per week 6 mL 09/08/2023 Active PEG 3350 17 GM/SCOOP Oral [...] minutes 25 Tablet 5 10/16/2023 Active Nystatin 120823 UNIT/GM External Powder (Nystop)Indications :Candidal intertrigo Apply topically to affected area 3 times a day. Apply to right breast until rash resolved. 30 g 10/16/2023 Active Nystatin 768742 UNIT/ML Mouth/Throat Suspension SWISH AND SWALLOW 5ML [...] on 12/05/2023 Vitamin D (Ergocalciferol) 1.25 MG (95933 UT) Oral Capsule (Drisdol)Indication s:Vitamin D deficiency [...] EVERY MORNING 90 Tablet 3 12/04/2023 Active documented as of this encounter (statuses as of 12/11/2023) Active Problems Problem Noted Date Diagnosed Date [...] mg daily Coronary artery disease invo lving [place] coronary artery of [place] heart without angina pectoris 11/15/2021 Last Assessment & Plan: Stable. No angina -continue toprol, ASA and statin Seasonal allergies 11/15/2021 Recurrent UTI 10/07/2021 Last Assessment & Plan: Followed by urology Pt is supposed to be on methenamine--will need to clarify with dgt that she is giving this. Pt also to see uro-residence life coordinator and ID Type 2 diabetes mellitus [...] 01/16/22 Moderate aortic stenosis 05/06/2018 Anxiety 08/05/2017 Nixjulv-Psxmw-Vmcer disease 06/27/2015 Last Assessment & Plan: Frequent [...] as of this encounter (statuses as of 12/11/2023) Resolved Problems Problem Noted Date Diagnosed Date [...] liver 05/06/2018 Atherosclerotic heart diseas e of [place] coronary artery with other forms of angina [...] stenosis 10/31/2010 08/28/2018 Acute coronary syndrome 10/30/201001/04 [place] Research Other*[id number] 02/02/2010 04/18/2014 Overview: [facility] Registry, Dr Joel [...] thrombosis 06/17/2006 01/21/2014 custodial current use of ant icoagulant therapy 06/17/2006 [...] as of this encounter (statuses as of 12/11/2023) Immunizations Name Administration Dates Next Due COVID-19 [...] Telephone Encounter - Fani Starr LPN - 12/11/2023 3:03 PM EDT Patient aware and verbalized understanding, she states this was in error * Telephone Encounter - Alfredo Ahmadi MD - 12/11/2023 2:51 PM EDT Per last office note plan is to hold drchronocherie Villaseñor * Telephone Encounter - Alfredo Ahmadi MD - 12/11/2023 2:51 PM EDT Refused Prescriptions: Disp Refills Nitrofurantoin Monohyd Macro 100 MG Oral C*60 Cap*0 Sig: Take 1 Capsule by mouth in the morning and 1 Capsule before bedtime With food. Refused By: ALFREDO AHMADI Reason for Refusal: Course of treatment complete * Telephone Encounter - Sindy Marx COA - 12/11/2023 11:40 AM EDTPending Prescriptions: Disp Refills Nitrofurantoin Monohyd Macro 100 MG Oral C*60 Cap*0 Sig: Take 1 Capsule by mouth in the morning and 1 Capsule before bedtime. With food.. documented in this encounter Plan of Treatment Upcoming Encounters Date Type Department Care Team (Latest Contact Info) Description 12/15/2023 2:00 PM EDT Home Visit [facility] [address] [place] [address] Connie Mccullough RN [address] [facility] [place] [address] 12/24/2023 9:40 AM EDT Office Visit Infectious Disease [facility] [address] [place] [address] Buzz Wall MD [address] [place] [address] 12/31/2023 3:18 PM EDT Hospital Encounter OR [facility], Operating Room, [place] [facility] - 4th Floor [address] [place] [address] Alfredo Ahmadi MD [address] [place] [address] 12/31/2023 3:18 PM EDT - 12/31/2023 4:20 PM EDT Surgery OR [facility], Operating Room, [place] [facility] - 4th Floor [address] [place] [address] Alfredo Ahmadi MD [address] [place] [address] CYSTOSTOMY WITH DRAINAGE OF BLADDER 01/16/2024 9:45 AM EDT Office Visit Urology [place] Kimberly Love [address] [place] [address] Alfredo Ahmadi MD [address] [place] [address] 01/26/2024 3:00 PM EDT Procedure Only Urology, [facility] 132 [facility] [place] [address] Alfredo Ahmadi MD [address] [place] [address] 02/09/2024 9:00 AM EDT [facility] Visit [facility] [place] [address] Kirby Valenzuela PA-C [address] [place] [address] 03/02/2024 4:00 PM EDT Imaging Radiology, [address] [address] 06/08/2024 6:00 PM EST Office Visit [facility] [address] [place] [id number] Brian Domínguez MD [address] [place] [address] Scheduled Procedures Name Priority Associated Diagnoses Date/Ti [...] 06/10/2021, 08/29/2020, 08/01/2020 CKD PHOS USE SMARTSET 43826 10/24/202310/05, 02/18/2022, 02/17/2022, Additional history exists HbA1c 12/17/2023 06/17/2023, 10/05, 04/25/2022, Additional history exists GFR 04/21/2024 10/21/2023, 07/08, 06/17/2023, Additional history exists Colonoscopy 05/20/2024 05/20/2014 Colorectal Cancer Screening 05/20/2024 TSH 06/17/2024 06/17/2023, 05/08, 02/13/2023, Additional history exists CKD HGB USE SMARTSET 67357 08/04/202408/04, 08/04/2023, 06/17/2023, Additional history exists Diabetic Foot Exam 10/15/2024 10/16/2023, 1 07/22/2019, 02/22/2019, Additional history exists Albumin/Creatinine Ratio 11/03/2024 024, 10/23/2022, 07/17/2022, Additional history exists O2 ASSESSMENT COMPLETED IN PAST YEAR FOR COPD 11/17/2024 11/18/2023 DTaP,Tdap,and Td Vaccines (2 - Td or [...] this encounter Medical Devices Implanted Type Area Black Mill Operator Device Identifier Shelf Expiration Date Model / Serial / Lot Sut Steel 6 M654g - [id number] Implanted:Qty: 3 on [place] [facility] [place] Chest DO NOT USE 01/15/2015 M654G / / [id number] Band Magdy 225-241 - [id number] Implanted:Qty: 1 on 02/15/2011 [place] [facility] [place]: Chest [employer] 225-241 / / [id number] Sut Steel 6 M654g - [id number] Implanted:Qty: 1 on 02/15/2011 [place] [facility] [place]: Chest DO NOT USE 07/21/2015 M654G / / [id number] documented as of this encounter Advance Directives Documents on File Type Date Recorded Patient Top Stitcher Expl anation POLST 05/06/2018 POLST * Full [...] Adult Child Health Care Agent Care Teams Commissioner Public Works Relationship Specialty Start Date End Date Brian Domínguez MD [address] [place] [address] PCP - General Family Medicine 07/16/17 documented as of this encounter
--- OUTSIDE RECORDS SUMMARY | 2024-03-03 08:18 | External Medical Summary | Summary of Care ---
Author Name Unknown Organization [facility] Address [address] [place] [address] Phone [phone] Care Team Providers Care Indian Blanket Weaver Name Role Phone Carmen Sifuentes MD Primary Care Provider [phone]- [phone] Reason for Visit * Reason Comments eRx-Medication Refill Encounter Details Date Type Department Care Team (Late st Contact Info) Description 12/12/2023 Refill [facility] [address] [place] [address] Carmen Sifuentes MD [address] [place] [address] Nasal sinus congestion; PND (post-nasal drip) Allergies Active Allergy Reactions Criticality Noted Date Comments Propoxyphene Hcl Rash Low 10/29/2010 Fentanyl Diarrhea Low 04/26/2010 anxiety Methocarbamol Medium 10/05/2020 Other reaction(s): Delirium Methocarbamol Low 04/15/2007 Zolpidem Low 10/05/2020 Other reaction(s): Confusion documented as of this encounter (statuses as of 12/12/2023) Medications Medication Sig Dispensed Refills Start Date End Date Status venlafaxine XR (EFFEXOR XR) 150 MG [id number]:De pression Take 1 Cap by mouth daily. [...] 11/19/19 18 Active Blood Glucose Monitoring Suppl ([place] VERIO) w/Device KIT Use as directed. Use as directed. 1 Kit 11/01/19 19 Active Spacer/Aero-Holdin g Chambers WISAM Use with inhaler. Wheezing/bronchiti s. 1 Device 04/08/20 19 Active Lancet Devices (Blue Flame DataTOUCH DELICA LANCING DEV) MISC Use four times [...] Tablet 5 12/10/19 23 Active UltiCare Pen [place] 31G X 5 MM (Insulin Pen Needle) [...] MORNING 90 Tablet 2 05/15/20 23 Active Potassium Chloride Mag ER 20 MEQ Oral Tablet Extended Release TAKE 1 TABLET BY MOUTH EVERY MORNING when taking additional torsemide 30 Tablet 5 05/27/20 23 Active Ipratropium-Alb[place] rol 0.5-2.5 (3) MG/3ML [...] Tablet (Demadex)Indicatio ns:Atherosclerotic heart disease of [place] coronary artery with other forms of angina pectoris (HCC),Hypertensive heart disease with chronic diastolic congestive heart failure (HCC) TAKE 1 TABLET BY MOUTH EVERY MORNING. MAY TAKE 1 ADDITIONAL TABLET NEEDED FOR SWELLING. 90 Tablet 07/08/19 24 Active Xifaxan 550 MG Oral [...] 25 Tablet 5 10/16/19 24 Active Nystatin 142972 UNIT/GM External Powder (Nystop)Indication s:Candidal intertrigo Apply topically to affected area 3 times a day. Apply to right breast until rash resolved. 30 g 10/16/19 24 Active Nystatin 410894 UNIT/ML Mouth/Throat Suspension SWISH AND SWALLOW 5ML [...] on 12/05/2023 Vitamin D (Ergocalciferol) 1.25 MG (36153 UT) Oral Capsule (Drisdol)Indicatio ns:Vitamin D deficiency TAKE 1 CAPSULE BY MOUTH ONCE WEEKLY 12 Capsule 3 11/10/19 24 Active clonazePAM 0.5 MG Oral Tablet (KlonoPIN)Indicati ons:Bipolar I disorder, most recent episode depressed, moderate (HCC) TAKE ONE TABLET BY MOUTH THREE TIMES DAILY 90 Tablet 11/13/19 24 Active Insulin Glargine Solostar 100 UNIT/ML [...] DAILY 90 Tablet 3 12/12/19 24 Active Montelukast Sodium 10 MG Oral Tablet (Singulair)Indicat ions:Nasal sinus congestion,PND (post-nasal drip) TAKE 1 TABLET BY MOUTH ONCE DAILY 90 Tablet 3 06/14/20 23 024 Discontinued documented as of this encounter (statuses as of 12/12/2023) Active Problems Problem Noted Date Diagnosed Date [...] giving this. Pt also to see uro-welt slasher and ID Type 2 diabetes mellitus wit [...] 01/16/22 Moderate aortic stenosis 05/06/2018 Anxiety 08/05/2017 Emuwonq-Cswxp-Ifgsm disease 06/27/2015 Last Assessment & Plan: Frequent [...] as of this encounter (statuses as of 12/12/2023) Resolved Problems Problem Noted Date Diagnosed Date [...] stenosis 10/31/2010 08/28/2018 Acute coronary syndrome 10/30/201001/04 [place] Research Other*[id number] 02/02/2010 04/18/2014 Overview: [place] Registry, Dr Joel CASAS Obesity, morbid (more [...] as of this encounter (statuses as of 12/12/2023) Immunizations Name Administration Dates Next Due COVID-19 [...] encounter Miscellaneous Notes * Telephone Encounter - Nir Tubbs RPh - 12/12/2023 4:24 PM EDT Signed Prescriptions: Disp Refills Montelukast Sodium 10 MG Oral Tablet (Sing*90 Tab*3 Sig: TAKE 1 TABLET BY MOUTH ONCE DAILYAuthorizing Provider: CARMEN SIFUENTES User: NIR TUBBS documented in this encounter Plan of Treatment Upcoming Encounters Date Type Department Care Team (Latest Contact Info) Description 12/15/2023 2:00 PM EDT Home Visit [facility] [address] [place] [address] Connie Mccullough, RN [address] [place] [address] 12/24/2023 9:40 AM EDT Office Visit Infectious Disease [facility] [place] [address] [place], [place] [address] Buzz Wall MD [address] [place] [address] 12/24/2023 11:30 AM EDT Nurse Only Ancillary [facility] [place] [address] [place] [address] [place], Nurse Fam Prac [facility] [address] [place] [address] 12/24/2023 12:00 PM EDT Laboratory Laboratory [facility] [place] [address] [place] [phone] [place], Lab [facility] [address] [facility] [place] [address] 12/31/2023 3:18 PM EDT Hospital Encounter OR [facility], Operating Room, [facility] Floor [address] [facility] [place] [address] Alfredo Panda MD [address] [place] [address] 12/31/2023 3:18 PM EDT - 12/31/2023 4:20 PM EDT Surgery OR [facility], Operating Room, [facility] Floor [address] [facility] [place] [address] Alfredo Panda MD [address] [place] [address] CYSTOSTOMY WITH DRAINAGE OF BLADDER 01/16/2024 9:45 AM EDT Office Visit Urology Kimberly Harmon [address] [place] [address] Alfredo Panda MD [address] [place] [address] 01/26/2024 3:00 PM EDT Procedure Only Urology, [facility] [address] [facility] [place] [address] Alfredo Panda MD [address] [place] [address] 02/09/2024 9:00 AM EDT [facility] Visit [facility], [facility] [address] [place] [address] Kirby Valenzuela PA-C [address] [place] [address] 03/02/2024 4:00 PM EDT Imaging Radiology, [place] [address] [facility] [address] 06/08/2024 6:00 PM EST Office Visit Family [facility] [address] [place] [address] Carmen Sifuentes MD [address] [place] [address] Scheduled Procedures Name Priority Associated Diagnoses Date/Ti [...] 06/10/2021, 08/29/2020, 08/01/2020 CKD PHOS USE SMARTSET 40638 10/24/202310/05, 02/18/2022, 02/17/2022, Additional history exists GFR [...] IN PAST YEAR FOR COPD 11/17/2024 11/18/2023 CKD HGB USE SMARTSET 20570 12/10/202412/10, 08/04/2023, 08/04/2023, Additional history exists DTaP,Tdap,and Td Vaccines (2 [...] encounter Medical Devices Implanted Type Area Supervisor Photostat Device Identifier Shelf Expiration Date Model / Serial / Lot Jenna Rojas 6 M654g - [id number] Implanted:Qty: 3 on 02/15/2011 at [place] [facility] [place] N/A: Chest DO NOT USE 01/15/2015 M654G / / [id number] Band Magdy 225-241 - [id number] Implanted:Qty: 1 on 02/15/2011 at OR [facility] [place] N/A: Chest [employer] 225-241 / / [id number] Sut Steel 6 M654g - [id number] Implanted:Qty: 1 on 02/15/2011 at OR 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
--- OUTSIDE RECORDS SUMMARY | 2024-03-03 08:18 | External Medical Summary | Summary of Care ---
Author Name Unknown Organization [facility] Address [address] [place] [address] Phone [phone] Care Team Providers Care Sewing Machine Repairer Helper Name Role Phone Brian Domínguez MD Primary Care Provider [phone]- [phone] Encounter Details Date Type Department Care Team (Late st Contact Info) Description 12/12/2023 Orders Only [place] [address] [place] [address] Brian Domínguez MD [address] [place] [address] Allergies Active Allergy Reactions Criticality Noted Date Comments Propoxyphene Hcl Rash Low 10/29/2010 Fentanyl Diarrhea Low 04/26/2010 anxiety Methocarbamol Medium 10/05/2020 Other reaction(s): Delirium Methocarbamol Low 04/15/2007 Zolpidem Low 10/05/2020 Other reaction(s): Confusion documented as of this encounter (statuses as of 12/12/2023) Medications Medication Sig Dispensed Refills Start Date End Date Status venlafaxine XR (EFFEXOR XR) 150 MG RA98Gyjmwdtvqhf:Dep ression Take 1 Cap by mouth daily. [...] Kit 11/18/2017 Active Blood Glucose Monitoring Suppl (WudyaUCH VERIO) w/Device KIT Use as directed. Use as directed. 1 Kit 10/31/2018 Active Spacer/Aero-Holding Chambers WISAM Use with inhaler. Wheezing/bronchitis . 1 Device 04/08/2019 Active Lancet Devices (AcsendoTOUCH DELICA LANCING DEV) MISC Use four times [...] 60 Tablet 5 12/09/2022 Active UltiCare Pen [place] 31G X 5 MM (Insulin Pen Needle) [...] Oral Tablet (Demadex)Indication s:Atherosclerotic heart disease of [place] coronary artery with other forms of angina [...] minutes 25 Tablet 5 10/16/2023 Active Nystatin 939773 UNIT/GM External Powder (Nystop)Indications :Candidal intertrigo Apply topically to affected area 3 times a day. Apply to right breast until rash resolved. 30 g 10/16/2023 Active Nystatin 581690 UNIT/ML Mouth/Throat Suspension SWISH AND SWALLOW 5ML [...] on 12/05/2023 Vitamin D (Ergocalciferol) 1.25 MG (61323 UT) Oral Capsule (Drisdol)Indication s:Vitamin D deficiency [...] mg daily Coronary artery disease invo lving pala coronary artery of [place] heart without angina pectoris 11/15/2021 Last Assessment & Plan: Stable. No angina -continue toprol, ASA and statin Seasonal allergies 11/15/2021 Recurrent UTI 10/07/2021 Last Assessment & Plan: Followed by urology Pt is supposed to be on methenamine--will need to clarify with dgt that she is giving this. Pt also to see uro-wound care rn and ID Type 2 diabetes mellitus wit [...] 03/27/2021 long term (current) use of insulin 09/29/2019 Diabetic gastroparesis [...] 01/16/22 Moderate aortic stenosis 05/06/2018 Anxiety 08/05/2017 Xflckbl-Avegb-Kjjwg disease 06/27/2015 Last Assessment & Plan: Frequent [...] liver 05/06/2018 Atherosclerotic heart diseas e of [place] coronary artery with other forms of angina [...] stenosis 10/31/2010 08/28/2018 Acute coronary syndrome 10/30/201001/04 ATHOL Research Other*[id number] 02/02/2010 04/18/2014 Overview: [place] Registry, Dr Joel [...] 06/17/2006 01/21/2014 care home current use of ant icoagulant therapy [...] PM EDT Home Visit [facility], [facility] [address] [facility] [place] [address] Connie Mccullough RN [address] [facility] [place] [address] 12/24/2023 9:40 AM EDT Office Visit Infectious Disease [facility] [place] [address] [place] [address] Buzz Wall MD [address] [place] [phone] 12/24/2023 11:30 AM EDT Nurse Only Ancillary [facility] [place] [address] [place] [address] Lisa, Nurse Fam Prac [place] [address] [address] [facility] [place] [address] 12/24/2023 12:00 PM EDT Laboratory Laboratory [facility] Lisa [place] [address] [place] [phone] Lisa Lab [facility] [address] [facility] [place] [address] 12/31/2023 3:18 PM EDT Hospital Encounter OR [place], Operating Room, [facility] - 4th Floor 400 [facility] [place] [id number] Alfredo Panda MD 27 [facility] [address] [place] [address] 12/31/2023 3:18 PM EDT - 12/31/2023 4:20 PM EDT Surgery OR GL, Operating Room, [facility] - 4th Floor [address] [place] [address] Alfredo Panda MD [address] [place] [address] [place] [address] CYSTOSTOMY WITH DRAINAGE OF BLADDER 01/16/2024 9:45 AM EDT Office Visit Urology Kimberly Harmon [address] [place] [address] Alfredo Panda MD [address] [place] [address] 01/26/2024 3:00 PM EDT Procedure Only Urology, [facility] 132 [facility] [place] [address] Alfredo Panda MD [address] [place] [address] 02/09/2024 9:00 AM EDT Home Visit [facility] [place], [facility] 132 [facility] [place] [address] Kirby Valenzuela PA-C [address] [facility] [place] [address] 03/02/2024 4:00 PM EDT Imaging Radiology, [place] [phone] [facility] [address] 06/08/2024 6:00 PM EST Office Visit [facility] [address] [facility], [place] [phone] Brian Domínguez MD [address] [facility] [place] [address] Scheduled Procedures Name Priority Associated Diagnoses [...] 06/10/2021, 08/29/2020, 08/01/2020 CKD PHOS USE SMARTSET 54435 10/24/202310/05, 02/18/2022, 02/17/2022, Additional history exists GFR [...] COPD 11/17/2024 11/18/2023 CKD HGB USE SMARTSET 38442 12/10/202412/10, 08/04/2023, 08/04/2023, Additional history exists DTaP,Tdap,and [...] encounter Medical Devices Implanted Type Area Assistant Infant Toddler Teacher Device Identifier Shelf Expiration Date Model / Serial / Lot Sut Steel 6 M654g - [id number] Implanted:Qty: 3 on 02/15/2011 at OR [facility] N/A: Chest DO NOT USE 01/15/2015 M654G / / [id number] Band Magdy 225-241 - [id number] Implanted:Qty: 1 on 02/15/2011 at OR [facility] N/A: Chest [employer] 225-241 / / [id number] Sut Steel 6 M654g - [id number] Implanted:Qty: 1 on 02/15/2011 at OR [facility] N/A: Chest DO NOT USE 07/21/2015 M654G / / [id number] documented as of this encounter Procedures Procedure Name Priority Date/Time Associated Diagnosis Comments CHEMISTRY-OUTSIDE Routine 12/11/2023 documented in this encounter Results * (ABNORMAL) CHEMISTRY-OUTSIDE (12/11/2023) Not all results display below - see scan for full detail SCAN INCLUDES: HA1C, CRP, CBCD, SED RATE OUTSIDE LAB (SEE SCANNED REPORT) CREATININE-OUTSID E LAB OUTSIDE LAB (SEE SCANNED REPORT) EGFR-OUTSIDE LAB OUT SIDE LAB (SEE SCANNED REPORT) POTASSIUM-OUTSIDE LAB OUTSIDE LAB (SEE SCANNED REPORT) GLUCOSE-OUTSIDE LAB OUTSIDE LAB (SEE SCANNED REPORT) HOURS FASTING OUTSID E LAB (SEE SCANNED REPORT) TRIGLYCERIDES-OUT SIDE LAB OUTSIDE LAB (SEE SCANNED REPORT) CHOLESTEROL-OUTSI DE LAB OUTSIDE LAB (SEE SCANNED REPORT) HDL-OUTSIDE LAB OUTS KELLI LAB (SEE SCANNED REPORT) CHOL/HDL RATIO-OUTSIDE LAB OUTSIDE LA B (SEE SCANNED REPORT) LDL (CALCULATED)-OUTS KELLI LAB OUTSIDE LAB (SEE SCANNED REPORT) LDL (DIRECT MEASURE)-OUTSIDE LAB OUTSIDE LAB (SEE SCANNED REPORT) HEMOGLOBIN, U7I-PSEJUQH LAB 6.2(A) 4.5 - 5.6 % OUTSIDE LAB (SEE SCANNED REPORT) PHOSPHORUS-OUTSID E LAB OUTSIDE LAB (SEE SCANNED REPORT) PTH-OUTSIDE LAB OUTS KELLI LAB (SEE SCANNED REPORT) MICROALBUMIN RATIO-OUTSIDE LAB OUTSIDE LA B (SEE SCANNED REPORT) PROTEIN, UA-OUTSIDE LAB OUTSIDE LAB (SEE SCANNED REPORT) HGB 12.9 12.0 - 16.0 G/DL OUTSIDE LAB (SEE SCANNED REPORT) 12/11/2023 Tommie Ruiz DO LABORATORY OUTSIDE LAB (SEE SCANNED REPORT) documented in this encounter Advance Directives Documents on File Type Date Recorded 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
--- OUTSIDE RECORDS SUMMARY | 2024-03-03 08:18 | External Medical Summary | Summary of Care ---
Author Name Unknown Organization [facility] Address [address] [place] [address] Phone [phone] Care Team Providers Care [employer] Products Sales Representative Name Role Phone Brian Domínguez MD Primary Care Provider +1- [phone] Reason for Visit * Reason Onset Date Comments Appointment 12/05/2023 Lmtcb /3, lmtcb 12/08 Encounter Details Date Type Department Care Team (Late st Contact Info) Description 12/05/2023 Telephone Urology, [facility] 132 [facility] [place] [address] Alfredo Panda MD 27 [facility] [address] [place] [address] Appointment (Lmtcb 3, lmtcb 12/08/) Allergies Active Allergy Reactions Criticality Noted Date Comments Propoxyphene Hcl Rash Low 10/29/2010 Fentanyl Diarrhea Low 04/26/2010 anxiety Methocarbamol Medium 10/05/2020 Other reaction(s): Delirium Methocarbamol Low 04/15/2007 Zolpidem Low 10/05/2020 Other reaction(s): Confusion documented as of this encounter (statuses as of 12/15/2023) Medications Medication Sig Dispensed Refills Start Date End Date Status venlafaxine XR (EFFEXOR XR) 150 MG HO70Erudnkxfkps:De pression Take 1 Cap by mouth daily. [...] 11/19/19 18 Active Blood Glucose Monitoring Suppl (iCracked VERIO) w/Device KIT Use as directed. Use as directed. 1 Kit 11/01/19 19 Active Spacer/Aero-Holdin g Chambers WISAM Use with inhaler. Wheezing/bronchiti s. 1 Device 04/08/20 19 Active Lancet Devices (iCracked DELICA LANCING DEV) MISC Use four times [...] at bedtime and 1 in morning 09/09/19 Active Albuterol Sulfate HFA 108 (90 [...] Tablet 5 12/10/19 23 Active UltiCare Pen [place] 31G X 5 MM (Insulin Pen Needle) [...] Oral Tablet (Demadex)Indicatio ns:Atherosclerotic heart disease of [place] coronary artery with other forms of angina [...] 25 Tablet 5 10/16/19 24 Active Nystatin 116262 UNIT/GM External Powder (Nystop)Indication s:Candidal intertrigo Apply topically to affected area 3 times a day. Apply to right breast until rash resolved. 30 g 10/16/19 24 Active Nystatin 948332 UNIT/ML Mouth/Throat Suspension SWISH AND SWALLOW 5ML [...] on 12/05/2023 Vitamin D (Ergocalciferol) 1.25 MG (65641 UT) Oral Capsule (Drisdol)Indicatio ns:Vitamin D deficiency [...] mg daily Coronary artery disease invo lving [place] coronary artery of [place] heart without angina pectoris 11/15/2021 Last Assessment [...] 01/16/22 Moderate aortic stenosis 05/06/2018 Anxiety 08/05/2017 Imwqqwj-Wxnpm-Fpnbv disease 06/27/2015 Last Assessment & Plan: Frequent [...] liver 05/06/2018 Atherosclerotic heart diseas e of [place] coronary artery with other forms of angina [...] stenosis 10/31/2010 08/28/2018 Acute coronary syndrome 10/30/201001/04 [place] Research Other*[id number] 02/02/2010 04/18/2014 Overview: [place] [facility], Dr Joel CASAS Obesity, morbid (more [...] encounter Miscellaneous Notes * Telephone Encounter - Rani Salas OSA - 12/15/2023 8:39 AM EDT Pt is scheduled for EKG on 12/24/23 at [facility]. * Telephone Encounter - Rani Salas OSA - 12/12/2023 2:41 PM EDT Lmom to schedule Ekg * Telephone Encounter - Hue Coates LPN - 12/10/2023 3:34 PM EDT Myg sent with appts and preop instructions. Please reach out to patient to schedule EKG with nursing. Thank you Yudith * Telephone Encounter - Hue Coates LPN - 12/09/2023 9:39 AM EDT lmtcb * Telephone Encounter - Hue Coates LPN - 12/08/2023 9:33 AM EDT Will need urine sample 1 week prior to surgery, and updated EKG. Orders placed. Lmtcb on Carolyn's voicemail. * Telephone Encounter - Hue Coates LPN - 12/05/2023 3:25 PM EDT Per scheduling: Surgery 12/30 at [facility] Routine follow up already scheduled 01/15 at [place], will keep as postop Cysto/SPT change scheduled 01/25 at 3:30 at * Telephone Encounter - Hue Coates LPN - 12/05/2023 1:51 PM EDT Patient needs scheduled for: Cysto, open SPT at [facility] 2 week wound check 1 month cysto, SPT exchange Patient unable to stay for nurse teaching and scheduling. Aware we will call her next week with preop instructions and appointment dates. documented in this encounter Plan of Treatment Upcoming Encounters Date Type Department Care Team (Latest Contact Info) Description 12/15/2023 2:00 PM EDT [facility] Visit [facility] [address] [place] [address] Connie Mccullough RN [address] [place] [address] 12/24/2023 9:40 AM EDT Office Visit Infectious Disease [place] [facility] [address] Buzz Wall MD [address] [place] [address] 12/24/2023 11:30 AM EDT Nurse Only Ancillary [place] [address] [place] [address] [place], Nurse Fam Prac [address]en[address] [facility] [place] [address] 12/24/2023 12:00 PM EDT Laboratory Laboratory [facility] Lisa [place] [address] [place] [phone] Lisa, Lab Scenery [address] [facility] [place] [address] 12/31/2023 3:18 PM EDT Hospital Encounter OR [facility], Operating Room, [facility] - 4th Floor [address] [place] [address] Alfredo Panda MD [address] [place] [address] 12/31/2023 3:18 PM EDT - 12/31/2023 4:20 PM EDT Surgery OR [facility], Operating Room, [facility] Floor [address] [place] [address] Alfredo Panda MD [address] [place] [address] CYSTOSTOMY WITH DRAINAGE OF BLADDER 01/16/2024 9:45 AM EDT Office Visit Urology Kimberly Harmon [address] [place] [address] Alfredo Panda MD [address] [place] [address] 01/26/2024 3:00 PM EDT Procedure Only Urology, [facility] [address] [place] [address] Alfredo Panda MD [address] [place] [address] 02/09/2024 9:00 AM EDT Home Visit [facility], [facility] [address] [facility] [place] [address] Kirby Valenzuela PA-C [address] [place] [address] 03/02/2024 4:00 PM EDT [address]iology, [address] [address] 06/08/2024 6:00 PM EST Office Visit Family [facility] [address] [place] [phone] Brian Domínguez MD [address] [place] [address] Scheduled Orders Name Type Priority Associated Diagnoses Orde r Schedule CULTURE, URINE, QUANTITATIVE Lab Routine Recurrent UTI Expected: 12/24/2023, Expires: 12/07/2024 EKG EKG Routine Recurrent UTI Expected: 12/08/2023 (Approximate), Expires: 01/06/2025 Scheduled Procedures Name Priority Associated Diagnoses Date/Ti [...] 06/10/2021, 08/29/2020, 08/01/2020 CKD PHOS USE SMARTSET 77852 10/24/202310/05, 02/18/2022, 02/17/2022, Additional history exists GFR [...] COPD 11/17/2024 11/18/2023 CKD HGB USE SMARTSET 44139 12/10/202412/10, 08/04/2023, 08/04/2023, Additional history exists DTaP,Tdap,and [...] this encounter Medical Devices Implanted Type Area Sheriff'S Detective Device Identifier Shelf Expiration Date Model / Serial / Lot Sut Steel 6 M654g - [id number] Implanted:Qty: 3 on 02/15/2011 at [place] [facility] [place]A: Chest DO NOT USE 01/15/2015 M654G / / [id number] Band Magdy 225-241 - [id number] Implanted:Qty: 1 on 02/15/2011 at [place] [facility] N/A: Chest [employer] 225-241 / / [id number] Sut Steel 6 M654g - [id number] Implanted:Qty: 1 on 02/15/2011 at [place] [facility] N/A: Chest DO NOT USE 07/21/2015 M654G / / [id number] documented as of this encounter Visit Diagnoses Diagnosis Urge incontinence- Primary Recurrent UTI- Primary Urinary tract infection, site not specified Urge incontinence documented in this encounter Advance Directives Documents on File Type Date Recorded Patient 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
--- OUTSIDE RECORDS SUMMARY | 2024-03-03 08:18 | External Medical Summary | Summary of Care ---
Author Name Unknown Organization [facility] Address [address] [place] [address] Phone [phone] Care Team Providers Care Instructional Support Assistant Name Role Phone Brian Domínguez MD Primary Care Provider [phone] Reason for Visit * Reason Onset Date Comments Medication Question 12/11/2023 Encounter Details Date Type Department Care Team (Late st Contact Info) Description 12/11/2023 Telephone [facility] [address] [place] [address] Brian Domínguez MD [address] [place] [address] Medication Question Allergies Active Allergy Reactions Criticality Noted Date Comments Propoxyphene Hcl Rash Low 10/29/2010 Fentanyl Diarrhea Low 04/26/2010 anxiety Methocarbamol Medium 10/05/2020 Other reaction(s): Delirium Methocarbamol Low 04/15/2007 Zolpidem Low 10/05/2020 Other reaction(s): Confusion documented as of this encounter (statuses as of 12/11/2023) Medications Medication Sig Dispensed Refills Start Date End Date Status venlafaxine XR (EFFEXOR XR) 150 MG [id number]:Dep ression Take 1 Cap by mouth daily. [...] Kit 11/18/2017 Active Blood Glucose Monitoring Suppl (uBiomeTOUCH VERIO) w/Device KIT Use as directed. Use [...] 60 Tablet 5 12/09/2022 Active UltiCare Pen [place] 31G X 5 MM (Insulin Pen Needle) [...] Oral Tablet (Demadex)Indication s:Atherosclerotic heart disease of torres martinez coronary artery with other forms of angina [...] 3 times daily 300 Strip 07/21/2023 Active Fat Spaniel TechnologiesTouch Delica Lancets 33G USE UP TO FOUR [...] minutes 25 Tablet 5 10/16/2023 Active Nystatin 096067 UNIT/GM External Powder (Nystop)Indications :Candidal intertrigo Apply topically to affected area 3 times a day. Apply to right breast until rash resolved. 30 g 10/16/2023 Active Nystatin 071779 UNIT/ML Mouth/Throat Suspension SWISH AND SWALLOW 5ML [...] on 12/05/2023 Vitamin D (Ergocalciferol) 1.25 MG (10235 UT) Oral Capsule (Drisdol)Indication s:Vitamin D deficiency [...] mg daily Coronary artery disease invo lving torres martinez coronary artery of torres martinez heart without angina pectoris 11/15/2021 Last Assessment & Plan: Stable. No angina -continue toprol, ASA and statin Seasonal allergies 11/15/2021 Recurrent UTI 10/07/2021 Last Assessment & Plan: Followed by urology Pt is supposed to be on methenamine--will need to clarify with dgt that she is giving this. Pt also to see uro-open hearth door liner and ID Type 2 diabetes mellitus wit [...] 01/16/22 Moderate aortic stenosis 05/06/2018 Anxiety 08/05/2017 Xvqftqg-Mwbhm-Mxmsl disease 06/27/2015 Last Assessment & Plan: Frequent [...] to amp error PERONEAL MUSCLE ATROPHY 12/31/2002 OGNZALEZ (nonalcoholic steatohepatitis) documented as of this encounter [...] liver 05/06/2018 Atherosclerotic heart diseas e of torres martinez coronary artery with other forms of angina [...] stenosis 10/31/2010 08/28/2018 Acute coronary syndrome 10/30/201001/04 HAVERSTRAW Research Other*[id number] 02/02/2010 04/18/2014 Overview: [facility], Dr Joel CASAS Obesity, morbid (more [...] Protocol #2. 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/2014 rn office current use of ant icoagulant therapy 06/17/2006 [...] encounter Miscellaneous Notes * Telephone Encounter - Daniel Castillo RP - 12/11/2023 4:24 PM EDT Advised cindy dx for Trulicity is e11.40. Thank you, Hollis Castillo, PharmD Clinical Pharmacist [facility] 12/11/23 4:26 PM [phone] * Telephone Encounter - Ashley Becker CPhT - 12/11/2023 4:22 PM EDT Pharmacy calling to request diagnoses for trulicity Thank you, Ashley Becker System Sales Consultant II [facility] ([facility]) (formerly Telepharmacy) 12/11/2023 4:22 PM documented in this encounter Plan of Treatment Upcoming Encounters Date Type Department Care Team (Latest Contact Info) Description 12/15/2023 2:00 PM EDT [facility] [address] [address] Connie Mccullough, RN [address] [address] 12/24/2023 9:40 AM EDT Office Visit Infectious Disease Logan Gonzalez [place] [address] [facility] [address] Buzz Wall MD [address] [place] [address] 12/24/2023 11:30 AM EDT Nurse Only Ancillary Scenery [facility] [address] [place] [address] [place], Nurse Fam Prac Scenery [address] [facility] [place] [place] [address] 12/24/2023 12:00 PM EDT Laboratory Laboratory [facility] [place] [address] [place] [id number] [place], Lab Scenery [address] [facility] [place] [address] 12/31/2023 3:18 PM EDT Hospital Encounter OR [facility], Operating Room, [facility] Floor [address] [place] [address] [place] [address] Alfredo Panda MD [address] [place] [address] 12/31/2023 3:18 PM EDT - 12/31/2023 4:20 PM EDT Surgery OR [facility], Operating Room, [facility] Floor [address] [place] [address] Alfredo Panda MD [address] [place] [address] CYSTOSTOMY WITH DRAINAGE OF BLADDER 01/16/2024 9:45 AM EDT Office Visit Urology Kimberly Harmon [address] [place] [address] Alfredo Panda MD [address] [place] [address] 01/26/2024 3:00 PM EDT Procedure Only Urology, [facility] [address] [address] Alfredo Panda MD [address] [place] [address] 02/09/2024 9:00 AM EDT [facility] [place] [address] Kirby Valenzuela PA-C [address] [place] [address] 03/02/2024 4:00 PM EDT [address]iology, [address] [address] 06/08/2024 6:00 PM EST Office Visit [facility] [address] [place] [phone] Brian Domínguez MD [address] [place] [address] Scheduled Procedures Name Priority Associated Diagnoses Date/Ti [...] Zoster Vaccines (2 of 3) 10/04/2016 08/09/2016, 110 03/2016 Diabetic Eye Exam 06/05/2021 06/05/2020, , 04/27/2019, Additional history exists COVID-19 Vaccine ( season) 2023 06/10/2021, 08/29/2020, 08/01/2020 CKD PHOS USE SMARTSET 19579 10/24/202310/05, 02/18/2022, 02/17/2022, Additional history exists HbA1c 12/17/2023 06/17/2023, 10/05, 04/25/2022, Additional history exists GFR 04/21/2024 10/21/2023, 07/08, 06/17/2023, Additional history exists Colonoscopy 05/20/2024 05/20/2014 Colorectal Cancer Screening 05/20/2024 TSH 06/17/2024 06/17/2023, 05/08, 02/13/2023, Additional history exists CKD HGB USE SMARTSET 39217 08/04/202408/04, 08/04/2023, 06/17/2023, Additional history exists Diabetic [...] encounter Medical Devices Implanted Type Area Assistant Professor Of Drama Device Identifier Shelf Expiration Date Model / Serial / Lot Sut Bob 6 M654g - [id number] Implanted:Qty: 3 on 02/15/2011 at OR [facility] N/A: Chest DO NOT USE 01/15/2015 M654G / / [id number] [place] [facility] 225-241 - [id number] Implanted:Qty: 1 on 02/15/2011 at OR [facility] N/A: Chest [employer] [id number] / / [id number] Sut Steel 6 M654g - [id number] Implanted:Qty: 1 on 02/15/2011 at OR [facility] N/A: Chest DO NOT USE 07/21/2015 M654G / / [id number] documented as of this encounter Advance Directives Documents on File Type Date Recorded Patient Kennel Hand Expl anation POLST 05/06/2018 POLST * [...] Name Relationship Healthcare Agent [facility] Communication Carolyntimothy Ballard Adult Child Health Care Agent Care Teams Instructional Support Assistant Relationship Specialty Start Date End Date Brian Domínguez MD [address] [place] [address] PCP - General Family Medicine 07/16/17 documented as of this encounter
--- NOTE | 2024-03-03 08:32 | Cardiology Consultation ---
Date of Consultation March 03, 2024 Assessment & Plan (1) URI (upper respiratory infection): (2) Acute UTI: (3) Hypomagnesemia: (4) Hyponatremia: (5) SVT (supraventricular tachycardia): (6) Elevated troponin: (7) ASCVD (arteriosclerotic cardiovascular disease): (8) Aortic stenosis: (9) (HFpEF) heart failure with preserved ejection fraction: Plan URI and UTI - As per Hospitalist and Urology SVT. Maintain normomagnesemia and normokalemia. Increase prior to arrival me toprolol succinate dosing from 25 mg/day to 50 mg/day. Maintain telemetry, RE: SVT, left anterior fascicular block, titration of beta-allie therapy. ASCVD. Chronic stable CCS Grade III angina pectoris. Increase metoprolol as above. Continue aspirin and statin. Resume Imdur if/when needed. MADELINE/ARB previously prescribed, discontinued for unknown reason(s). Aortic stenosis. Mild via TTE in December 2023. TTE pending this admission. HFpEF. Patient appears normovolemic to mildly hypovolemia. Prior to arrival torsemide is currently on hold. Will likely need to resume in the next 1-2 days. Dyslipidemia. Continue moderate intensity statin therapy (atorvastatin 40 mg/day). Hypertension. Controlled. See above. Supervising Physician Co-Signing Physician Notes Attending attestation: Case reviewed with the advanced practitioner. I have personally performed a history and physical examination on the patient. I have reviewed the advanced practitioner's documentation on the date of service referenced in note, and I agree with, and take responsibility for the plan of care. Telemetry reveals SVT 160 bpm observed on 03/02/2024 from 16: 17 until 16: 29 and converted to sinus rhythm after 6 mg of IV adenosine. Remains sinus rhythm. No subjective symptoms of tachypalpitations at time of presentation. Continue metoprolol 25 mg twice daily. Vasquez Ng DO History of Present Illness Reason for Consultation: SVT Requesting Physician: Dr. Toussaint Attending Physician: Alvaro Cameron MD History of Present Illness Angelina Ballard is a 73 year old female who lives at [facility] in [place]. Approximately two weeks ago the she developed what she thought was a "simple common cold," a nonproductive cough, sore throat, and ear pain without fevers, chills, change in appetite, rash, or missed medications. The patient was evaluated by her PCP on 03/02/2024 at which time she was found to be in SVT at 160 bpm and referred to the ER for further evaluation and treatment. Vagal maneuvers were ineffective. The patient received 6mg IV adenosine with successful return to sinus. Approximately 15 minutes later SVT returned and the patient was given 2.5 mg of IV metoprolol x 2 doses with return to since rhythm. Patient asymptomatic in regards to tachypalpitations, worsening dyspnea, or increased angina pectoris. Patient compliant with medications. The patient has a suprapubic catheter and here is current concern for a UTI (1-2 weeks of lower abdominal pain, dark malodorous urine, erythema at suprapubic catheter site). Laboratory work notable for hypomagnesemia, borderline hypokalemia, hyponatremia. Past Medical and Surgical History: ASCVD Status post multiple percutaneous interventions to the right coronary artery, ultimately undergoing CABG with a MISAEL to the RCA on 02/15/2011 after catheterization on 02/11/2011 demonstrated the recurrent re-stenosis of the RCA with mild nonobstructive CAD elsewhere. Postoperative complications included agitation treated with Precedex, atrial fibrillation with conversion on amiodarone, anemia, and IV infiltrate. Patient hospitalized in May 2012, undergoing diagnostic cardiac catheterization by Dr. Falk on 06/04/2012 demonstrating a 50% in-stent restenosis of the proximal RCA with a patent MISAEL to the distal RCA that has competitive flow from the [place] vessel. The left coronary system had minor nonobstructive disease. There was normal left ventricular systolic function. 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 Saleem in 2007. Left hip surgery Total hysterectomy. Knee replacement. Cholecystectomy. Appendectomy. History of bypass of the right lower extremity. Family History: Coronary artery disease in her father, mother and brother. Social History: Nonsmoker. No alcohol. Denies illegal or illicit drug use. . Grown children. Lives at [facility]. Allergies Allergy/AdvReac Type Severity Reaction Status Date / Time propoxyphene Allergy Intermediate Rash Verified 05/09/23 13:18 fentanyl AdvReac Intermediate PANIC Verified 05/09/23 13:18 WANTS TO RUN AND AGGRESSIVE methocarbamol AdvReac Intermediate DELERIUM Verified 05/09/23 13:18 zolpidem AdvReac Intermediate confusion Verified 05/09/23 13:18 Home Medications Medication Instructions Recorded Confirmed Type albuterol sulfate 90 mcg/actuation 2 inh inhalation Q6 PRN Shortness 02/07/23 03/02/24 History aerosol inhaler Of Breath Or Wheezing aripiprazole 2 mg tablet 2 mg PO QAM 02/07/23 03/02/24 History atorvastatin 40 mg tablet 40 mg PO QAM 02/07/23 03/02/24 History clonazepam 0.5 mg tablet 0.5 mg PO TID 02/07/23 03/02/24 History ergocalciferol (vitamin D2) 1,250 1,250 mcg PO .Q THUR 02/07/23 03/02/24 History mcg (50,000 unit) capsule (Vitamin D2) famotidine 20 mg tablet 40 mg PO QAM 02/07/23 03/02/24 History fluticasone propionate 50 2 spray intranasal DAILY 02/07/23 03/02/24 History mcg/actuation nasal spray,suspension (Flonase Allergy Relief) gabapentin 300 mg capsule 300 mg PO BID 02/07/23 03/02/24 History lamotrigine 100 mg tablet 100 mg PO QAM 02/07/23 03/02/24 History (Lamictal) lamotrigine 25 mg tablet (Lamictal) 25 mg PO QAM 02/07/23 03/02/24 History lamotrigine 25 mg tablet (Lamictal) 50 mg PO HS 02/07/23 03/02/24 History levothyroxine 88 mcg tablet 88 mcg PO QAM 02/07/23 03/02/24 History metoprolol succinate 25 mg 25 mg PO QAM 02/07/23 03/02/24 History tablet,extended release 24 hr montelukast 10 mg tablet 10 mg PO DAILY 02/07/23 03/02/24 History nitroglycerin 0.4 mg sublingual 0.4 mg sublingual DIRECTED PRN 02/07/23 03/02/24 History tablet (Nitrostat) Chest Pain pantoprazole 40 mg tablet,delayed 40 mg PO AMPM 02/07/23 03/02/24 History release potassium chloride 20 mEq 20 meq PO QAM PRN when taking 02/07/23 03/02/24 History tablet,extended additional torsemide release(part/cryst) (Klor-Con M) rifaximin 550 mg tablet (Xifaxan) 550 mg PO BID 02/07/23 03/02/24 History tamsulosin 0.4 mg capsule 0.4 mg PO QAM 02/07/23 03/02/24 History torsemide 20 mg tablet 20 mg PO QAM 02/07/23 03/02/24 History trazodone 50 mg tablet 100 mg PO HS 02/07/23 03/02/24 History venlafaxine 150 mg 150 mg PO QAM 02/07/23 03/02/24 History capsule,extended release 24 hr venlafaxine 75 mg tablet,extended 75 mg PO QAM 02/07/23 03/02/24 History release 24 hr insulin glargine 100 unit/mL 35 unit subcut BID 05/09/23 03/02/24 History subcutaneous solution (Lantus U-100 Insulin) ascorbic acid (vitamin C) 500 mg 500 mg PO AMHS 05/12/23 03/02/24 History tablet (Vitamin C) aspirin 81 mg tablet,delayed 81 mg PO QAM 05/12/23 03/02/24 History release budesonide-formoterol HFA 160 2 puff inhalation AMHS 05/12/23 03/02/24 History mcg-4.5 mcg/actuation aerosol inhaler (Symbicort) dicyclomine 10 mg capsule 10 mg PO QID PRN Abdominal Pain 05/12/23 03/02/24 History metformin 500 mg tablet,extended 500 mg PO QDD 05/12/23 03/02/24 History release 24 hr nystatin 100,000 unit/gram topical 1 applic topical TID 05/12/23 03/02/24 History powder (Nyamyc) ondansetron HCl 8 mg tablet 8 mg PO Q8 PRN Nausea 05/12/23 03/02/24 History oxybutynin chloride 10 mg 10 mg PO QAM 05/12/23 03/02/24 History tablet,extended release 24 hr spironolactone 50 mg tablet 50 mg PO AMHS 05/12/23 03/02/24 History lactulose 10 gram/15 mL oral 45 ml PO BID 03/02/24 03/02/24 History solution semaglutide 2 mg/dose (8 mg/3 mL) 2 mg subcut .WEEKLY 03/02/24 03/02/24 History subcutaneous pen injector (Ozempic) Patient History Medical History Cardiac arrest pt states she was told she went into cardiac arrest during her hip surgery in 02/2022 at [facility] and was "revived". no other details were given. Palpitations occasionally -- pt states since her metoprolol has been decreased. Cough started about 8 months ago s/p covid-19 virus -- currently treating with a ugmentin PO bid and prednisone. prednisone to end 05/27/22 and abx to finish on 06/01/22 Hx of fall pt. fell in the bathroom at home, pt. wasn't aware of what happen but was told this by her family 02/05/2022 History of anesthesia reaction REMOTE HX, SIDE EFFECTS : ANXIETY AND SEVERE N/V History of COVID-19 may or june 2021, has cough since. SOB (shortness of breath) SINCE COVID -8 MON AGO, SOB, COUGH...NO DX...HAS VISIT WITH PULM UPCOMING TO EVALUATE Urinary incontinence UTI (urinary tract infection) FREQUENT/PREVENTATIVE ABX'S CURRENTLY MOST RECENT UTI JANUARY 04 - ABX COMPLETE - ON CURRENT PROPHYLACTIC TX Irregular heart beat follows Dr. 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 Lucas History of cardiac cath multiple - most recent - 2 years ago @ [facility] Family History Father Coronary heart disease Brother Coronary heart disease Father No problems noted. Mother No problems noted. Other No family history of adverse response to anesthesia Social History Smoking Status: Never smoker Tobacco Type: Cigarettes Second Hand Exposure: Yes; Do You Dip or Chew Tobacco: No; Hx Alcohol Use: No Hx Substance Use: No Preferred Language: Slovak Communication Ability: Impaired Visual Impairment: Partially Limited Hearing Ability: Hard of Hearing Director Of Institutional Research Required: No Beliefs That Will Affect Care: Restorationism Restorationism Beliefs: Jehovahs witness marital status: / Current Living Situation: Alone Current Living Situation Comment: alone with 24hr caregivers How many Children do You have: 3 Feels Safe at Home: Yes Diet: low carbohydrate and low salt caffeine: No Assistive Devices: Walker and Wheelchair Review of Systems Review of Systems: Complete Review of Systems is as stated above, negative, or noncontributory. Physical Exam Physical Exam: General: A&Ox3. NAD. HENT: Normocephalic. Atraumatic. Mouth: Dentures. Dry. ? Thrush Eyes: PER. Conjunctiva pink, sclera clear. Neck: No carotid bruits. No JVD. Heart: RRR, 76 bpm. Grade II/ systolic ejection murmur. No diastolic murmur. Lungs: Clear to auscultation. Abdomen: Suprapubic catheter. +BS. Soft. Nontender. No masses or organomegaly. Extremities: Trace to 1+ distal bilateral lower extremity edema. No clubbing. No cyanosis. Limited neurological examination is without focal deficits. Pulses: Posterior tibial=1/4. Results & Data Vital Signs (Past 12 Hours) Vital Signs Pulse Pulse Resp BP BP Pulse Ox Pulse Ox 03/03/24 07:18 79 03/03/24 06:00 74 12 116/61 97 03/03/24 03:48 70 108/67 03/03/24 03:24 132 H 126/76 03/03/24 03:10 128 H 03/02/24 23:54 76 17 124/55 L 98 03/02/24 23:54 98 03/02/24 23:19 79 100/66 03/02/24 23:19 77 100/66 03/02/24 22:45 79 18 113/59 L 96 03/02/24 21:29 79 18 99/55 L 96 O2 Del Method O2 Del Method 03/03/24 07:18 03/03/24 06:00 Room Air 03/03/24 03:48 03/03/24 03:24 03/03/24 03:10 03/02/24 23:54 Room Air 03/02/24 23:54 Room Air 03/02/24 23:19 03/02/24 23:19 03/02/24 22:45 Room Air 03/02/24 21:29 Room Air Laboratory Results Cardiac Enzymes 03/02/24 03/02/24 03/02/24 Range/Units 16:26 18:32 23:56 AST 16 (13-39) U/L Troponin I High Sens 33.8 H 42.5 H 55.2 H* D (0-14) pg/ml 03/03/24 Range/Units 05:34 AST (13-39) U/L Troponin I High Sens 51.4 H* (0-14) pg/ml CBC 03/02/24 03/03/24 Range/Units 16:26 05:34 WBC 9.61 5.90 (4.8-10.8) K/ul RBC 4.92 4.23 (4.20-5.40) M/uL Hgb 13.5 11.5 L (12.0-16.0) g/dl Hct 39.7 35.5 L (37.0-47.0) % Plt Count 158 131 (130-400) K/uL Neut # (Auto) 6.83 H (1.40-6.50) K/uL Lymph # (Auto) 1.71 (1.20-3.40) K/uL [place] # (Auto) 0.61 H (0.11-0.59) K/uL Eos # (Auto) 0.26 (0.00-0.50) K/uL Baso # (Auto) 0.07 (0.00-0.20) K/uL Comprehensive Metabolic Panel 03/02/24 03/03/24 Range/Units 16:26 05:34 Sodium 129 L 133 L (136-145) mmol/L Potassium 3.5 4.0 (3.5-5.1) mmol/L Chloride 93 L 102 (98-107) mmol/L Carbon Dioxide 26 26 (21-32) mmol/L BUN 7 7 (6-23) mg/dl Creatinine 1.03 1.00 (0.6-1.2) mg/dl Glucose 266 H 153 H (70-99(Fasting)) mg/dl Calcium 9.1 8.1 L (8.6-10.3) mg/dl AST 16 (13-39) U/L ALT 17 (7-52) U/L Alkaline Phosphatase 136 H (34-104) U/L Total Protein 6.9 (6.0-8.3) gm/dl Albumin 3.9 (3.4-5.0) gm/dl Intake and Output 03/02/24 03/03/24 03/03/24 22:59 06:59 14:59 Intake Total 700 / 2120 1420 / 2120 Output Total 1375 / 2600 1225 / 2600 Balance -675 / -480 195 / -480 Intake: IV 700 / 1400 700 / 1400 Magnesium Sulfate / D5w 1 gm In 200 / 400 200 / 400 100 ml @ 100 mls/hr IV Q1H [facility] Rx#:[id number] Sodium Chloride 0.9% 500 ml @ 500 / 500 999 mls/hr IV .Q31M ONE Rx#: [id number] Sodium Chloride 0.9% 500 ml @ 500 / 500 999 mls/hr IV .Q31M [facility] Rx#: [id number] Oral 720 / 720 Output: Urine 1375 / 1375 Urine Amount (Catheter) 1225 / 1225 Gallagher/Indwelling 1225 / 1225 Other: Weight 114.8 kg Weight Measurement Method Built in [facility] Diagnostic Findings Telemetry: SVT initially. Currently sinus in the s.
[2024-03-03] MEDS ORDERED: FLUTICASONE PROPIONATE NA SPR 16 GM BTL SCH (09:00)
[2024-03-03] MEDS: 4.5GM X1 IV STA (09:26)
[2024-03-03] MEDS: METOPROLOL TARTRATE 25 MG TAB PO SCH (10:40)
--- NOTE | 2024-03-03 11:19 | Pharmacy Report ---
Pharmacy Glycemic Short Note 2 - Date of Service March 03, 2024 - Glycemic Short BSG Results (Last 24 hours): 03/02/24 03/02/24 03/03/24 16:26 23:25 05:34 Glucose 266 H 153 H POC Glucose 238 H 03/03/24 07:47 Glucose POC Glucose 178 H OUTPATIENT ANTIDIABETIC REGIMEN: * Lantus 35 units SC BID * Metformin * Semaglutide * HbA1c 6.0% on 03/03/24 ASSESSMENT: * 73 yo F w T2DM. Prior hospitalizations reviewed, although they were not too recent * Will use prior data to help guide current regimen * Will continue Lantus BID per outpatient regimen but dose adjust down for now * Will utilize similar Novolog to previous, which is also a weight-based moderate stress estimate PLAN FOR INPATIENT GLYCEMIC CONTROL: * Hold outpatient oral diabetes medications * Basal insulin * Lantus 20 units SQ BID * Bolus insulin * NovoLog per scale ACHS or Q6hrs while NPO * Goal Range: Low 110 mg/dL - High 160 mg/dL * Correction Factor: 20 mg/dL/unit * Nutritional / Prandial insulin per carb ratio of 1 unit per 7 grams CHO consumed
--- NOTE | 2024-03-03 13:28 | Urology Progress Note ---
Date of Service March 03, 2024 Assessment & Plan (1) Acute UTI: Plan: 73-year-old female admitted for supraventricular tachycardia and acute UTI. Patient is afebrile and hemodynamically stable Labs reviewedcreatinine 1.0, no leukocytosis Urine culture prelim with gram-negative bacilli Blood cultures are pending Recommend continue broad spectrum antibiotics and narrow per sensitivity data when available Suprapubic catheter is patent and draining appropriately SP was last exchanged less than 2 weeks ago No indication to exchange catheter at this time Recommend routine catheter care Continue with antibiotics per culture, supportive care, and medical management per primary team Continue scheduled follow-up and catheter exchanges with her established urologist, Dr. Panda will sign off, please contact our service with any additional questions or concerns Admission and Anticipated Discharge Date Admission Date: March 02, 2024 Subjective Patient seen and examined in the emergency department. Suprapubic catheter intact and draining appropriately. Reports no recent issues with her catheter. She reports it was exchanged about 1.5 weeks ago. She follows with Dr. Alfredo Panda. No fever or chills. Review of Systems Constitutional: as per Subjective / HPI Genitourinary: as per Subjective / HPI Physical Exam Constitutional: + obese; no acute distress Respiratory: no respiratory distress and no labored breathing Neurologic: awake Psychiatric: Orientation: alert and oriented x 3 Genitourinary: Suprapubic catheter patent and draining clear yellow urine There is a small amount of discharge/drainage around her suprapubic catheter site Results & Data Vital Signs (Past 12 Hours) Vital Signs Pulse Pulse Resp BP BP Pulse Ox O2 Del Method 03/03/24 08:22 78 20 118/70 94 Room Air 03/03/24 07:18 79 03/03/24 06:00 74 12 116/61 97 Room Air 03/03/24 03:48 70 108/67 03/03/24 03:24 132 H 126/76 03/03/24 03:10 128 H PG Care Time/CCT Total # of Minutes Spent Total Time Spent with Patient: Total time spent is greater than 50% in coordination of care (as documented) at patient's floor/unit and/or counseling patient: Coding Level of Care Code 42446 SUB INP/OBS CARE 1/25MIN Diagnoses Acute UTI N39.0
--- NOTE | 2024-03-03 16:07 | Hospitalist Progress Note ---
Date of Service March 03, 2024 Assessment & Plan (1) SVT (supraventricular tachycardia): (2) Acute UTI (urinary tract infection): (3) Hypomagnesemia: Plan Angelina Ballard is a 73y/o F with PMHx of dyslipidemia, hypothyroidism, DM type II [on long-term insulin therapy], diabetic neuropathy, diabetic gastroparesis, CKD stage III, COPD, HTN, chronic diastolic congestive heart failure, moderate aortic stenosis, CAD, chronic liver disease and cirrhosis, portal hypertensive gastropathy, GERD, GONZALEZ/fatty liver, urinary incontinence [suprapubic catheter in place], Qttkgzr-Ngvxz-Turwq disease, bipolar disorder and other problems listed below who presented to the ED for evaluation secondary to tachycardia. Supraventricular Tachycardia (SVT), HTN Patient saw her PCP and was found to be tachycardic w/ a HR ~160bpm. Patient was ultimately referred to the ED by her PCP after she was found to be tachycardic in the office. EKG on presentation to the ED showed SVT w/ HR 159bpm and L anterior fascicular block. Vagal maneuvers ineffective. First received 6mg IV adenosine x 1 dose and reverted back to NSR. Did however go back into SVT about 15 minutes later. Received IV metoprolol 2.5mg x 2 doses and reverted back to NSR once again. Patient's home metoprolol succinate dosage increased to 50 mg once a day Continue to monitor on telemetry Acute Urinary Tract Infection (UTI) POA Suprapubic Catheter POA - Was previously exchanged 2-3 weeks ago per patient's daughter. Follows w/ [facility]. Patient w/ lower abdominal pain x ~ 2 weeks. Urine has also been darker than usual. Her daughter had noticed malodorous urine from her suprapubic catheter over the past 5 days. Urine analysis suggest infection Follow-up on urine culture and blood culture results Continue home oxybutynin. [place] [facility] consulted - patient will more than likely require catheter exchange. Recent Viral Illness: Patient has had a productive cough, sore throat & R ear pain for ~2 weeks. No fevers. CXR negative for any acute findings. RVP negative. Will start oral doxycycline. Continue daily Flonase. Chronic Liver Disease and Cirrhosis: Stable, no evidence of acute encephalopathy. Continue home lactulose and Xifaxan. Eqvkeip-Ctbyu-Indzq Disease: Has foot drop at baseline, wears b/l LE braces. DM Type II: Hold home agents, basal/bolus insulin regimen while inpatient. BSG checks ACHS. . Glycemic pharmacy consulted. Other Chronic Medical Conditions: Hypothyroidism, diabetic neuropathy, COPD, GERD, bipolar disorder --> Can continue home meds for these specific conditions. DVT Prophylaxis: SQ Heparin Code Status: FULL CODE PCP: Brian Domínguez MD Disposition: Admit to PCU/Telemetry Time spent evaluating patient, direct bedside care, chart review, placing orders, interpretation of diagnostic studies, discussion with consultants, patient, and family members, as well as other required patient management activities is 50 minutes Please note the above document was generated using voice recognition software. It may contain grammatical, syntax or spelling errors. Any formal questions or concerns about the content, text or information contained within the body of this dictation should be directly addressed to the provider for clarification Admission and Anticipated Discharge Date Admission Date: March 02, 2024 Subjective Patient seen and examined at bedside. She reports of suprapubic discomfort. No episode of SVT. Vital signs stable and she is saturating well on room air Review of Systems Review of Systems: All systems reviewed & are unremarkable except as noted in Subjective Physical Exam Physical Exam: Constitutional: WD/WN, vitals as above, NAD, sitting up in bed, pleasant, c onversing easily Respiratory: normal respiratory effort, lungs clear to auscultation, no wheeze, rales, rhonchi. Normal insp/exp effort, no accessory muscle use Cardiovascular: RRR, no murmur, no edema Vessels: no JVD or carotid bruit Chest: normal inspection of chest Abdomen: Tenderness in the suprapubic region. Suprapubic catheter in place Musculoskeletal: no cyanosis or clubbing, extremities motor strength 5/5 Skin: no rashes, warm and dry normal turgor Neurologic: PERRL, EOMI, accommodation nl, no face palsy, no dysarthria CN's II- XI intact bilaterally and moves all extremities Psychiatric: A+Ox3, euthymic affect Results & Data Results & Data Vital Signs (Past 12 Hours) Vital Signs Temp Pulse Pulse Resp BP Pulse Ox O2 Del Method 03/03/24 15:07 Room Air 03/03/24 14:59 36.6 C 113 H 18 102/69 97 Room Air 03/03/24 08:22 78 20 118/70 94 Room Air 03/03/24 07:18 79 03/03/24 06:00 74 12 116/61 97 Room Air
[2024-03-03] MEDS: PIPERACILLIN/TAZOBACTAM 4.5 GM/100 ML BAG IV SCH (16:46)
[2024-03-03] MEDS ORDERED: Nursing to Pharmacy Communication SCH (22:45)
[2024-03-04] MEDS: ACETAMINOPHEN 325 MG TAB PO PRN (07:11)
[2024-03-04 07:21] LABS: Basophils # (auto) 0.05 K/uL (0.00-0.20); Basophils % (auto) 0.8 %; Eosinophils # (auto) 0.37 K/uL (0.00-0.50); Eosinophils % (auto) 6.1 %; Hematocrit (blood only) 32.3 % (37.0-47.0); Hemoglobin 10.7 g/dl (12.0-16.0); Immature Granulocytes # (auto) 0.08 K/uL (0.01-0.20); Immature Granulocytes % (auto) 1.3 %; Lymphocytes # (auto) 1.32 K/uL (1.20-3.40); Lymphocytes % (auto) 21.8 %; Mean Corpuscular Hemoglobin 27.3 pg (25.0-34.0); Mean Corpuscular Hgb Conc 33.1 g/dL (32.0-36.0); Mean Corpuscular Volume 82.4 fL (80.0-100.0); Mean Platelet Volume 10.1 fL (9.4-12.4); Monocytes # (auto) 0.48 K/uL (0.11-0.59); Monocytes % (auto) 7.9 %; Neutrophils # (auto) 3.76 K/uL (1.40-6.50); Neutrophils % (auto) 62.1 %; Platelet Count 121 K/uL (130-400); RDW Coefficient of Variation 15.8 % (11.5-14.5); RDW Standard Deviation 47.4 fL (36.4-46.3); Red Blood Count 3.92 M/uL (4.20-5.40); White Blood Count 6.06 K/ul (4.8-10.8)
[2024-03-04 07:46] LABS: BUN Creatinine Ratio 7.8 (10-20); Calcium 8.1 mg/dl (8.6-10.3); Creatinine Clr Calc Pharmacy 64.6 ml/min; Est GFR (African American) 62.8 ml/min; Est GFR (Non-African American) 54.1 ml/min; Potassium 3.8 mmol/L (3.5-5.1)
[2024-03-04] MEDS: ERGOCALCIFEROL 1250 MCG (50,000 UNITS) CAP PO SCH (08:48)
[2024-03-04] MEDS ORDERED: METOPROLOL SUCC 50MG EXT REL TAB PO SCH (09:00)
--- NOTE | 2024-03-04 09:24 | Hospitalist Progress Note ---
Date of Service March 04, 2024 Assessment & Plan (1) SVT (supraventricular tachycardia): (2) Acute UTI (urinary tract infection): (3) Hypomagnesemia: Plan Angelina Ballard is a 73y/o F with PMHx of dyslipidemia, hypothyroidism, DM type II [on long-term insulin therapy], diabetic neuropathy, diabetic gastroparesis, CKD stage III, COPD, HTN, chronic diastolic congestive heart failure, moderate aortic stenosis, CAD, chronic liver disease and cirrhosis, portal hypertensive gastropathy, GERD, GONZALEZ/fatty liver, urinary incontinence [suprapubic catheter in place], Yrftiyk-Ojmih-Hffif disease, bipolar disorder and other problems listed below who presented to the ED for evaluation secondary to tachycardia. Supraventricular Tachycardia (SVT), HTN Patient saw her PCP and was found to be tachycardic w/ a HR ~160bpm. Patient was ultimately referred to the ED by her PCP after she was found to be tachycardic in the office. EKG on presentation to the ED showed SVT w/ HR 159bpm and L anterior fascicular block. Vagal maneuvers ineffective. First received 6mg IV adenosine x 1 dose and reverted back to NSR. Did however go back into SVT about 15 minutes later. Received IV metoprolol 2.5mg x 2 doses and reverted back to NSR once again. Patient currently on metoprolol succinate 25 mg twice a day Continue to monitor on telemetry Acute Urinary Tract Infection (UTI) POA Suprapubic Catheter POA - Was previously exchanged 2-3 weeks ago per patient's daughter. Follows w/ [facility]. Patient w/ lower abdominal pain x ~ 2 weeks. Urine has also been darker than usual. Her daughter had noticed malodorous urine from her suprapubic catheter over the past 5 days. Urine analysis suggest infection Urine culture grew E. coli; pansensitive Blood cultureno growth till date Continue home oxybutynin. [place] [facility] consulted -No need to exchange suprapubic catheter Recent Viral Illness: Patient has had a productive cough, sore throat & R ear pain for ~2 weeks. No fevers. CXR negative for any acute findings. RVP negative. Continue doxycycline. Chronic Liver Disease and Cirrhosis: Stable, no evidence of acute encephalopathy. Continue home lactulose and Xifaxan. Tarkokg-Yhzik-Tsiyr Disease: Has foot drop at baseline, wears b/l LE braces. DM Type II: Hold home agents, basal/bolus insulin regimen while inpatient. BSG checks ACHS. . Glycemic pharmacy consulted. Other Chronic Medical Conditions: Hypothyroidism, diabetic neuropathy, COPD, GERD, bipolar disorder --> Can continue home meds for these specific conditions. DVT Prophylaxis: SQ Heparin Code Status: FULL CODE PCP: Brian Domínguez MD Disposition: Admit to PCU/Telemetry Time spent evaluating patient, direct bedside care, chart review, placing orders, interpretation of diagnostic studies, discussion with consultants, zachery ent, and family members, as well as other required patient management activities is 50 minutes Please note the above document was generated using voice recognition software. It may contain grammatical, syntax or spelling errors. Any formal questions or concerns about the content, text or information contained within the body of this dictation should be directly addressed to the provider for clarification Admission and Anticipated Discharge Date Admission Date: March 02, 2024 Subjective Patient seen and examined at bedside. Comfortable; not in distress. Denies fever, chills, chest pain, shortness of breath, abdominal pain or urinary symptoms. No significant overnight events Review of Systems Review of Systems: All systems reviewed & are unremarkable except as noted in Subjective Physical Exam Physical Exam: Constitutional: WD/WN, vitals as above, NAD, sitting up in bed, pleasant, conversing easily Respiratory: normal respiratory effort, lungs clear to auscultation, no wheeze, rales, rhonchi. Normal insp/exp effort, no accessory muscle use Cardiovascular: RRR, no murmur, no edema Vessels: no JVD or carotid bruit Chest: normal inspection of chest Abdomen: Tenderness in the suprapubic region. Suprapubic catheter in place Musculoskeletal: no cyanosis or clubbing, extremities motor strength 5/5 Skin: no rashes, warm and dry normal turgor Neurologic: PERRL, EOMI, accommodation nl, no face palsy, no dysarthria CN's II- XI intact bilaterally and moves all extremities Psychiatric: A+Ox3, euthymic affect Results & Data Results & Data Vital Signs (Past 12 Hours) Vital Signs Temp Pulse Pulse Resp BP Pulse Ox O2 Del Method 03/04/24 07:37 64 03/04/24 07:21 36.3 C L 61 18 100/64 96 Room Air 03/04/24 03:08 36.5 C 66 18 113/74 95 Room Air 03/03/24 23:30 Room Air 03/03/24 23:28 36.5 C 66 18 109/71 96 Room Air 03/03/24 22:24 69
--- NOTE | 2024-03-04 10:09 | Cardiology Progress Note ---
Date of Service March 04, 2024 Assessment & Plan (1) URI (upper respiratory infection): (2) Acute UTI: (3) Hypomagnesemia: (4) Hyponatremia: (5) SVT (supraventricular tachycardia): (6) Elevated troponin: (7) ASCVD (arteriosclerotic cardiovascular disease): (8) Aortic stenosis: (9) (HFpEF) heart failure with preserved ejection fraction: Plan URI and UTI - As per Hospitalist and Urology SVT. Maintain normomagnesemia and normokalemia. Increase prior to arrival metoprolol succinate, to 25 mg twice a day. Chest pain. Reproducible with palpation of the lower sternum. General measures advised. ASCVD. Chronic stable CCS Grade III angina pectoris. Increase metoprolol as above. Continue aspirin and statin. No need to retry isosorbide at this point. MADELINE/ARB previously prescribed, discontinued possibly due to hypotension. Aortic stenosis. Mild via TTE in December 2023. Echo this admission with discordant findings, mild suggested by Doppler criteria, moderate suggested by 2D visualization HFpEF. Volume status appears normovolemic. Recommend resumption of patient's prior to arrival diuretic regimen. Dyslipidemia. Continue moderate intensity statin therapy (atorvastatin 40 mg/day). Hypertension. Controlled. See above. Cardiology signing off; please contact with questions or concerns Admission and Anticipated Discharge Date Admission Date: March 02, 2024 Supervising Physician Co-Signing Physician Notes Attending attestation: Case reviewed with the advanced practitioner. I have personally performed a history and physical examination on the patient. I have reviewed the advanced practitioner's documentation on the date of service referenced in note, and I agree with, and take responsibility for the plan of care. change metoprolol to succinate , 25 mg BID Call with questions or concerns Vasquez Ng, DO Subjective Patient seen and examined. Chart, medications, telemetry reviewed. Anxious to return home Chest discomfort last evening, reproducible with palpation of the inferior aspect of the sternum Telemetry: Predominantly sinus with atrial ectopy, heart rates in the 60s and 70s. There was a 18-second run of PAT at 8:05 this morning Patient received 25 mg of Lopressor yesterday morning but none last evening as best I can tell. Review of Systems Review of Systems: Complete Review of Systems is as stated above, negative, or noncontributory. Physical Exam Physical Exam: General: A&Ox3. NAD. HENT: Normocephalic. Atraumatic. Eyes: PER. Conjunctiva pink, sclera clear. Neck: No JVD. Heart: RRR, 66 bpm. Grade II/ systolic ejection murmur. No diastolic murmur. Lungs: Clear to auscultation. Abdomen: Suprapubic catheter. +BS. Soft. Nontender. No masses or organomegaly. Extremities: Mild distal bilateral lower extremity edema. No clubbing. No cyanosis. Limited neurological examination is without focal deficits. Pulses: Posterior tibial=1/4. Results & Data Vital Signs (Past 12 Hours) Vital Signs Temp Pulse Pulse Resp BP Pulse Ox O2 Del Method 03/04/24 07:37 64 03/04/24 07:21 36.3 C L 61 18 100/64 96 Room Air 03/04/24 03:08 36.5 C 66 18 113/74 95 Room Air 03/03/24 23:30 Room Air 03/03/24 23:28 36.5 C 66 18 109/71 96 Room Air 03/03/24 22:24 69 Laboratory Results CBC 03/04/24 Range/Units 06:47 WBC 6.06 (4.8-10.8) K/ul RBC 3.92 L (4.20-5.40) M/uL Hgb 10.7 L (12.0-16.0) g/dl Hct 32.3 L (37.0-47.0) % Plt Count 121 L (130-400) K/uL Neut # (Auto) 3.76 (1.40-6.50) K/uL Lymph # (Auto) 1.32 (1.20-3.40) K/uL Dickson # (Auto) 0.48 (0.11-0.59) K/uL Eos # (Auto) 0.37 (0.00-0.50) K/uL Baso # (Auto) 0.05 (0.00-0.20) K/uL Comprehensive Metabolic Panel 03/04/24 Range/Units 06:47 Sodium 136 (136-145) mmol/L Potassium 3.8 (3.5-5.1) mmol/L Chloride 105 (98-107) mmol/L Carbon Dioxide 26 (21-32) mmol/L BUN 8 (6-23) mg/dl Creatinine 1.02 (0.6-1.2) mg/dl Glucose 100 H (70-99(Fasting)) mg/dl Calcium 8.1 L (8.6-10.3) mg/dl Intake and Output 03/03/24 03/04/24 03/04/24 22:59 06:59 14:59 Intake Total 703 / 1801.75 100 / 1801.75 Output Total 1999 / 3250 1250 / 3250 Balance -1297 / -1448.25 -1150 / -1448.25 Intake: IV 503 / 1601.75 100 / 1601.75 Piperacillin/Tazobactam 4.5 gm 100 / 100 In 100 ml @ 25 mls/hr IV Q8H ANGELLA Rx#:[id number] Sodium Chloride 0.9% 1,000 ml @ 503 / 1401.75 75 mls/hr IV .[id number] ANGELLA Rx#: [id number] Oral 200 / 200 Output: Urine 1999 / 1999 Urine Amount (Catheter) 1250 / 1250 Gallagher/Indwelling 1250 / 1250 Other: Weight 115.7 kg Weight Measurement Method Built in [facility]
[2024-03-04] MEDS: METOPROLOL TARTRATE 25 MG TAB PO SCH (10:25)
[2024-03-04] MEDS: cefTRIAXone SODIUM 2,000 MG/50 ML BAG IV SCH (11:26)
[2024-03-04] MEDS: METOPROLOL SUCC 25MG EXT REL TAB PO SCH (11:29)
[2024-03-04] MEDS: ONDANSETRON INJ 2 MG/ML 2 ML VIAL ONE (12:18)
--- NOTE | 2024-03-04 21:45 | Electrocardiogram Report ---
Test Reason : Blood Pressure : */* mmHG Vent. Rate : 159 BPM Atrial Rate : * BPM P-R Int : * ms QRS Dur : 98 ms QT Int : 292 ms P-R-T Axes : * -71 98 degrees QTcB Int : 474 ms Supraventricular tachycardia Left anterior fascicular block Anterior infarct (cited on or before 12-May-2023) Abnormal ECG When compared with ECG of 12-May-2023 16:17, Vent. rate has increased by 87 bpm Supraventricular tachycardia has replaced Sinus rhythm Confirmed by Vamshi Landaverde ([id number]) on 03/04/2024 9:45:12 PM Referred By: REFERRED SELF Confirmed By: Vamshi Landaverde
--- NOTE | 2024-03-04 21:47 | Electrocardiogram Report ---
Test Reason : Blood Pressure : */* mmHG Vent. Rate : 86 BPM Atrial Rate : 86 BPM P-R Int : 154 ms QRS Dur : 106 ms QT Int : 358 ms P-R-T Axes : * 245 108 degrees QTcB Int : 428 ms Normal sinus rhythm Incomplete right bundle branch block Possible Anterior infarct (cited on or before 02-Mar-2024) Abnormal ECG When compared with ECG of 02-Mar-2024 16:19, Vent. rate has decreased by 73 bpm QRS axis Shifted left Sinus rhythm has replaced Supraventricular tachycardia Confirmed by Vamshi Landaverde ([id number]) on 03/04/2024 9:47:11 PM Referred By: REFERRED SELF Confirmed By: Vamshi Landaverde
[2024-03-05 06:28] LABS: Hemoglobin 10.7 g/dl (12.0-16.0); Mean Corpuscular Hemoglobin 27.5 pg (25.0-34.0); Mean Corpuscular Hgb Conc 33.4 g/dL (32.0-36.0); Mean Corpuscular Volume 82.3 fL (80.0-100.0); Platelet Count 110 K/uL (130-400); RDW Coefficient of Variation 15.7 % (11.5-14.5); RDW Standard Deviation 47.1 fL (36.4-46.3); Red Blood Count 3.89 M/uL (4.20-5.40); White Blood Count 5.46 K/ul (4.8-10.8)
--- NOTE | 2024-03-05 08:58 | Pharmacy Report ---
Pharmacy Glycemic Short Note 2 - Date of Service March 05, 2024 - Glycemic Short BSG Results (Last 24 hours): 03/04/24 03/04/24 03/04/24 11:22 16:26 20:17 POC Glucose 99 130 H 131 H 03/05/24 07:24 POC Glucose 80 OUTPATIENT ANTIDIABETIC REGIMEN: * Lantus 35 units SC BID * Metformin * Semaglutide * HbA1c 6.0% on 03/03/24 ASSESSMENT: 03/05/24 * Angelina received 56 units of insulin yesterday (40 units Lantus + 16 units Novolog) with all BSGs at/near goal. * Fasting BSG is trending down at 80 mg/dL. Will hold basal insulin this morning. Give single dose of 20 units today with dinner. Decrease ongoing dose by 30% (based on estimated needs of ~28 units per day of basal). * Will slightly reduce post prandial coverage 03/03/24 * 73 yo F w T2DM. Prior hospitalizations reviewed, although they were not too recent * Will use prior data to help guide current regimen * Will continue Lantus BID per outpatient regimen but dose adjust down for now * Will utilize similar Novolog to previous, which is also a weight-based moderate stress estimate PLAN FOR INPATIENT GLYCEMIC CONTROL: * Hold outpatient oral diabetes medications * Basal insulin * Hold AM dose * Lantus 20 units SQ with dinner x 1 * 03/06: start Lantus 14 units SQ with dinner * Bolus insulin * NovoLog per scale ACHS or Q6hrs while NPO * Goal Range: Low 110 mg/dL - High 160 mg/dL * Correction Factor: 25 mg/dL/unit * Nutritional / Prandial insulin per carb ratio of 1 unit per 8 grams CHO consumed
[2024-03-05] MEDS: ONDANSETRON INJ 2 MG/ML 2 ML VIAL IV PRN (09:47)
--- NOTE | 2024-03-05 09:51 | Discharge Summary ---
Date of Service March 05, 2024 Admission HPI Per Admitting Provider Angelina Ballard is a 73y/o F with PMHx of dyslipidemia, hypothyroidism, DM type II [on long-term insulin therapy], diabetic neuropathy, diabetic gastroparesis, CKD stage III, COPD, HTN, chronic diastolic congestive heart failure, moderate aortic stenosis, CAD, chronic liver disease and cirrhosis, portal hypertensive gastropathy, GERD, GONZALEZ/fatty liver, urinary incontinence [suprapubic catheter in place], Nyesieb-Avbzt-Zrfpo disease, bipolar disorder and other problems listed below who presented to the ED for evaluation secondary to tachycardia. History obtained from patient and associated chart review. According to ED provider, patient has not been feeling for a little while. She has had a cough, sore throat and R ear pain for approximately 2 weeks. Cough has been productive. No fevers that she recalls. She saw her PCP today for further evaluation and was found to be tachycardic w/ a HR ~160bpm. Patient was ultimately referred to the ED by her PCP after she was found to be tachycardic in the office. EKG on presentation to the ED showed SVT w/ HR 159bpm and L anterior fascicular block. Vagal maneuvers ineffective. First received 6mg IV adenosine x 1 dose and reverted back to NSR. Did however go back into SVT about 15 minutes later. Received IV metoprolol 2.5mg x 2 doses and reverted back to NSR once again. Appetite unchanged. Denies any SOB. Was experiencing some chest pain when her heart was racing during the episode of tachycardia today. She is having some lower abdominal pain, which has been ongoing for the past approximately 2 weeks. Her daughter had noticed malodorous urine from her suprapubic catheter today. Urine has been darker than usual. No tobacco use. No alcohol use. No recreational drug use. Admission Exam Per Admitting Provider GENERAL: Alert and oriented x3. NAD, on RA. HEENT: No pallor, no icterus. Pupils equal, round and reactive to light. Oral mucosa moist. Throat congestion noted. NECK: No JVD, no neck masses. HEART: S1 and S2 heard. Regular rate and rhythm. No murmur, no gallop. RESPIRATORY SYSTEM: Normal AP diameter. No accessory muscle use. No wheezing, b/l mid and basal crackles. ABDOMEN: Soft, bowel sounds present, nontender, no distention. Suprapubic cath noted, light yellow urine in bag. Cath site erythematous and purulent drainage. CENTRAL NERVOUS SYSTEM: No facial droop. Speech is clear. Obeys simple commands. Moves extremities. EXTREMITIES: LE in braces [h/o foot drop], no edema appreciated. Principal Diagnosis Supraventricular tachycardia Urinary tract infection Discharge Exam Constitutional: WD/WN, vitals as above, NAD, sitting up in bed, pleasant, conversing easily Respiratory: normal respiratory effort, lungs clear to auscultation, no wheeze, rales, rhonchi. Normal insp/exp effort, no accessory muscle use Cardiovascular: RRR, no murmur, no edema Vessels: no JVD or carotid bruit Chest: normal inspection of chest Abdomen: Tenderness in the suprapubic region. Suprapubic catheter in place Musculoskeletal: no cyanosis or clubbing, extremities motor strength 5/5 Skin: no rashes, warm and dry normal turgor Neurologic: PERRL, EOMI, accommodation nl, no face palsy, no dysarthria CN's II- XI intact bilaterally and moves all extremities Psychiatric: A+Ox3, euthymic affect Discharge Data Allergies Allergy/AdvReac Type Severity Reaction Status Date / Time propoxyphene Allergy Intermediate Rash Verified 05/09/23 13:18 fentanyl AdvReac Intermediate PANIC Verified 05/09/23 13:18 WANTS TO RUN AND AGGRESSIVE methocarbamol AdvReac Intermediate DELERIUM Verified 05/09/23 13:18 zolpidem AdvReac Intermediate confusion Verified 05/09/23 13:18 Consultations 03/02/24 18:46 ED Decision to Admit Stat 03/02/24 19:18 Consult Cardiology Routine 03/02/24 19:20 Consult Urology Routine Hospital Course (1) SVT (supraventricular tachycardia): (2) Acute UTI (urinary tract infection): (3) Hypomagnesemia: Elisabeth Ballard is a 73y/o F with PMHx of dyslipidemia, hypothyroidism, DM type II [on long-term insulin therapy], diabetic neuropathy, diabetic gastroparesis, CKD stage III, COPD, HTN, chronic diastolic congestive heart failure, moderate aortic stenosis, CAD, chronic liver disease and cirrhosis, portal hypertensive gastropathy, GERD, GONZALEZ/fatty liver, urinary incontinence [suprapubic catheter in place], Nyphbtb-Ehmea-Vqgyx disease, bipolar disorder presented to the ED for evaluation secondary to tachycardia. Supraventricular Tachycardia (SVT), HTN Patient saw her PCP and was found to be tachycardic w/ a HR ~160bpm. Patient wa s ultimately referred to the ED by her PCP after she was found to be tachycardic in the office. EKG on presentation to the ED showed SVT w/ HR 159bpm and L anterior fascicular block. Vagal maneuvers ineffective. First received 6mg IV adenosine x 1 dose and reverted back to NSR. Did however go back into SVT about 15 minutes later. Received IV metoprolol 2.5mg x 2 doses and reverted back to NSR once again. During the hospitalization, cardiology was consulted for comanagement. Patient's home metoprolol succinate was increased to twice a day. No recurrence of SVT during the hospitalization. Acute Urinary Tract Infection (UTI) POA Suprapubic Catheter POA - Was previously exchanged 2-3 weeks ago per patient's daughter. Follows w/ [facility]. Patient w/ lower abdominal pain x ~ 2 weeks. Urine has also been darker than usual. Her daughter had noticed malodorous urine from her suprapubic catheter over the past 5 days. Urine analysis suggest infection Urine culture grew E. coli; pansensitive Blood cultureno growth till date She was treated with IV ceftriaxone during the hospitalization. At discharge she was placed on Augmentin for 5 more days to complete the antibiotic course Please note the above document was generated using voice recognition software. It may contain grammatical, syntax or spelling errors. Any formal questions or concerns about the content, text or information contained within the body of this dictation should be directly addressed to the provider for clarification Total Time Total Time Spent Total Time Spent (In Minutes): 35 Total Time Includes: Examination of the Patient, Discharge Planning, Medication Reconciliation, Communication With Other Providers and Other Discharge Plan Discharge Items Patient Disposition: Home - Self-Care Reason For Visit: SVT, ACUTE UTI Discharge Diagnosis: Supraventricular tachycardia Acute UTI Condition on Discharge: Fair Activity: Resume your previous activity Non-emergency contact: Primary Care Provider Call non-emergency contact if: you have any medication questions and your symptoms worsen Follow-up/Referrals: Brian Domínguez MD [Primary Care Provider] - (Date & Time 03/10/2024 11:20 AM Provider Brian Domínguez MD [facility] ) Diet: Regular Addtl Attending Provider Instructions: You were admitted to the hospital due to urinary tract infection. You are treated with IV antibiotic during the hospitalization. You are prescribed Augmentin twice a day for 5 more days to complete the treatment course. For your elevated heart rate, you are prescribed metoprolol succinate. Please take it twice a day An appointment with your primary care doctor will be made for you. Please follow-up with them Pending Studies at Discharge: No Stand-Alone Forms: My [facility] Rising, Smoking Cessation Medications and DC Order Prescriptions: New calcium carbonate-vitamin D3 [Calcium 600 + D(3)] 600 mg-10 mcg (400 unit) tablet 1 tab PO DAILY Qty: 60 0RF amoxicillin-pot clavulanate 875-125 mg tablet 1 tab PO BID 5 Days Qty: 10 0RF Continued atorvastatin 40 mg Tablet 40 mg PO QAM torsemide 20 mg tablet 20 mg PO QAM Rx Instructions: May take 1 additional tablet as needed for swelling. trazodone 50 mg Tablet 100 mg PO HS clonazepam 0.5 mg tablet 0.5 mg PO TID Hold Instructions: Resume on 05/20/23. Till you see your primary care doctor. venlafaxine 150 mg capsule,extended release 24hr 150 mg PO QAM lamotrigine [Lamictal] 25 mg Tablet 25 mg PO QAM lamotrigine [Lamictal] 25 mg Tablet 50 mg PO HS levothyroxine 88 mcg tablet 88 mcg PO QAM potassium chloride [Klor-Con M20] 20 mEq tablet,ER particles/crystals 20 meq PO QAM PRN (Reason: when taking additional torsemide) famotidine 20 mg Tablet 40 mg PO QAM tamsulosin 0.4 mg Capsule 0.4 mg PO QAM pantoprazole 40 mg tablet,delayed release (DR/EC) 40 mg PO AMPM nitroglycerin [Nitrostat] 0.4 mg Tablet, Sublingual 0.4 mg sublingual DIRECTED MDD 3 tablets in 15 minutes PRN (Reason: Chest Pain) Rx Instructions: Q 5 MIN PRN chest pain. gabapentin 300 mg Capsule 300 mg PO BID montelukast 10 mg tablet 10 mg PO DAILY albuterol sulfate 90 mcg/actuation Hfa Aerosol Inhaler 2 inh INHALATION Q6 PRN (Reason: Shortness Of Breath Or Wheezing) fluticasone propionate [Flonase Allergy Relief] 50 mcg/actuation Register,Suspension 2 spray INTRANASAL DAILY Rx Instructions: Administer into each nostril. lamotrigine [Lamictal] 100 mg Tablet 100 mg PO QAM aripiprazole 2 mg Tablet 2 mg PO QAM venlafaxine 75 mg Tablet Extended Release 24hr 75 mg PO QAM Xifaxan 550 mg tablet 550 mg PO BID insulin glargine [Lantus U-100 Insulin] 100 unit/mL solution 35 unit SUBCUT BID aspirin 81 mg tablet,delayed release (DR/EC) 81 mg PO QAM oxybutynin chloride 10 mg tablet extended release 24hr 10 mg PO QAM ascorbic acid (vitamin C) [Vitamin C] 500 mg tablet 500 mg PO [facility] metformin 500 mg tablet extended release 24 hr 500 mg PO QDD spironolactone 50 mg tablet 50 mg PO [facility]HS budesonide-formoterol [Symbicort] 160-4.5 mcg/actuation HFA aerosol inhaler 2 puff INHALATION [facility] nystatin [Nyamyc] 100,000 unit/gram powder 1 applic TOPICAL TID Rx Instructions: Apply to right breast until rash resolved. ondansetron HCl 8 mg tablet 8 mg PO Q8 PRN (Reason: Nausea) dicyclomine 10 mg Capsule 10 mg PO QID PRN (Reason: Abdominal Pain) lactulose 10 gram/15 mL Solution 45 ml PO BID Ozempic 2 mg/dose (8 mg/3 mL) pen injector 2 mg SUBCUT .WEEKLY Changed metoprolol succinate 25 mg Tablet Extended Release 24 Hr 25 mg PO BID Qty: 60 0RF Discontinued ergocalciferol (vitamin D2) [Vitamin D2] 1,250 mcg (50,000 unit) Capsule 1,250 mcg PO .Ilir Doshi/Other Patient Handouts: Managing Type 2 Diabetes, Special Foot Care for Diabetes Admission Data Admit Date/Time: 03/02/24 19:28 Attending Provider: Alvaro Cameron Admit Provider: Jazmin Toussaint Primary Care Provider: Brian Domínguez Other Providers: Jazmin Toussaint; [facility]
--- NOTE | 2024-03-05 15:28 | Hospitalist Progress Note ---
Date of Service March 05, 2024 Assessment & Plan (1) SVT (supraventricular tachycardia): (2) Acute UTI (urinary tract infection): (3) Hypomagnesemia: Plan Angelina Ballard is a 73y/o F with PMHx of dyslipidemia, hypothyroidism, DM type II [on long-term insulin therapy], diabetic neuropathy, diabetic gastroparesis, CKD stage III, COPD, HTN, chronic diastolic congestive heart failure, moderate aortic stenosis, CAD, chronic liver disease and cirrhosis, portal hypertensive gastropathy, GERD, GONZALEZ/fatty liver, urinary incontinence [suprapubic catheter in place], Ycviykv-Dnzhg-Wlqlk disease, bipolar disorder presented to the ED for evaluation secondary to tachycardia. Supraventricular Tachycardia (SVT), HTN Patient saw her PCP and was found to be tachycardic w/ a HR ~160bpm. Patient was ultimately referred to the ED by her PCP after she was found to be tachycardic in the office. EKG on presentation to the ED showed SVT w/ HR 159bpm and L anterior fascicular block. Vagal maneuvers ineffective. First received 6mg IV adenosine x 1 dose and reverted back to NSR. Did however go back into SVT about 15 minutes later. Received IV metoprolol 2.5mg x 2 doses and reverted back to NSR once again. During the hospitalization, cardiology was consulted for comanagement. Patient's home metoprolol succinate was increased to twice a day. No recurrence of SVT during the hospitalization. Acute Urinary Tract Infection (UTI) POA Suprapubic Catheter POA - Was previously exchanged 2-3 weeks ago per patient's daughter. [facility]. Patient w/ lower abdominal pain x ~ 2 weeks. Urine has also been darker than usual. Her daughter had noticed malodorous urine from her suprapubic catheter over the past 5 days. Urine analysis suggest infection Urine culture grew E. coli; pansensitive Blood cultureno growth till date She was treated with IV ceftriaxone. Continue for now Recent Viral Illness: Patient has had a productive cough, sore throat & R ear pain for ~2 weeks. No fevers. CXR negative for any acute findings. RVP negative. Continue doxycycline. Chronic Liver Disease and Cirrhosis: Stable, no evidence of acute encephalopathy. Continue home lactulose and Xifaxan. Xpshbej-Uwzhy-Jvgev Disease: Has foot drop at baseline, wears b/l LE braces. DM Type II: Hold home agents, basal/bolus insulin regimen while inpatient. BSG checks ACHS. . Glycemic pharmacy consulted. Other Chronic Medical Conditions: Hypothyroidism, diabetic neuropathy, COPD, GERD, bipolar disorder --> Can continue home meds for these specific conditions. DVT Prophylaxis: SQ Heparin Code Status: FULL CODE PCP: Brian Domínguez MD Disposition: Admit to PCU/Telemetry Please note the above document was generated using voice recognition software. It may contain grammatical, syntax or spelling errors. Any formal questions or concerns about the content, text or information contained within the body of this dictation should be directly addressed to the provider for clarification Admission and Anticipated Discharge Date Admission Date: March 02, 2024 Subjective Patient seen and examined at bedside. Comfortable; not in distress. Denies fever, chills, chest pain, shortness of breath, abdominal pain or urinary symptoms. No significant overnight events Review of Systems Review of Systems: All systems reviewed & are unremarkable except as noted in Subjective Physical Exam Physical Exam: Constitutional: WD/WN, vitals as above, NAD, sitting up in bed, pleasant, conversing easily Respiratory: normal respiratory effort, lungs clear to auscultation, no wheeze, rales, rhonchi. Normal insp/exp effort, no accessory muscle use Cardiovascular: RRR, no murmur, no edema Vessels: no JVD or carotid bruit Chest: normal inspection of chest Abdomen: Tenderness in the suprapubic region. Suprapubic catheter in place Musculoskeletal: no cyanosis or clubbing, extremities motor strength 5/5 Skin: no rashes, warm and dry normal turgor Neurologic: PERRL, EOMI, accommodation nl, no face palsy, no dysarthria CN's II- XI intact bilaterally and moves all extremities Psychiatric: A+Ox3, euthymic affect Results & Data Results & Data Vital Signs (Past 12 Hours) Vital Signs Temp Pulse Pulse Resp BP Pulse Ox O2 Del Method 03/05/24 14:45 36.7 C 61 18 107/69 94 Room Air 03/05/24 11:47 36.4 C L 62 16 100/51 L 98 Room Air 03/05/24 09:00 Room Air 03/05/24 07:22 36.8 C 59 L 18 115/67 92 Room Air 03/05/24 07:00 60 03/05/24 04:00 113/62
[2024-03-05] MEDS ORDERED: INSULIN GLARGINE SOLOSTAR 100 UNITS/ML 3 ML PEN SC SCH (16:30)
[2024-03-05] MEDS: LANTUS PER UNIT CHARGE SC SCH (18:35)
[2024-03-06] MEDS: LORazepam 0.5 MG TAB PO STA (02:47)
[2024-03-06 02:52] VITALS: RESP 16; O2SAT 97
[2024-03-06 07:45] VITALS: BP 107/77; PULSE 61; TEMP 97.7
--- NOTE | 2024-03-06 08:54 | Discharge Summary ---
Date of Service March 06, 2024 Admission HPI Per Admitting Provider Angelina Ballard is a 73y/o F with PMHx of dyslipidemia, hypothyroidism, DM type II [on long-term insulin therapy], diabetic neuropathy, diabetic gastroparesis, CKD stage III, COPD, HTN, chronic diastolic congestive heart failure, moderate aortic stenosis, CAD, chronic liver disease and cirrhosis, portal hypertensive gastropathy, GERD, GONZALEZ/fatty liver, urinary incontinence [suprapubic catheter in place], Efgqxud-Upgem-Ezlpk disease, bipolar disorder and other problems listed below who presented to the ED for evaluation secondary to tachycardia. History obtained from patient and associated chart review. According to ED provider, patient has not been feeling for a little while. She has had a cough, sore throat and R ear pain for approximately 2 weeks. Cough has been productive. No fevers that she recalls. She saw her PCP today for further evaluation and was found to be tachycardic w/ a HR ~160bpm. Patient was ultimately referred to the ED by her PCP after she was found to be tachycardic in the office. EKG on presentation to the ED showed SVT w/ HR 159bpm and L anterior fascicular block. Vagal maneuvers ineffective. First received 6mg IV adenosine x 1 dose and reverted back to NSR. Did however go back into SVT about 15 minutes later. Received IV metoprolol 2.5mg x 2 doses and reverted back to NSR once again. Appetite unchanged. Denies any SOB. Was experiencing some chest pain when her heart was racing during the episode of tachycardia today. She is having some lower abdominal pain, which has been ongoing for the past approximately 2 weeks. Her daughter had noticed malodorous urine from her suprapubic catheter today. Urine has been darker than usual. No tobacco use. No alcohol use. No recreational drug use. Admission Exam Per Admitting Provider GENERAL: Alert and oriented x3. NAD, on RA. HEENT: No pallor, no icterus. Pupils equal, round and reactive to light. Oral mucosa moist. Throat congestion noted. NECK: No JVD, no neck masses. HEART: S1 and S2 heard. Regular rate and rhythm. No murmur, no gallop. RESPIRATORY SYSTEM: Normal AP diameter. No accessory muscle use. No wheezing, b/l mid and basal crackles. ABDOMEN: Soft, bowel sounds present, nontender, no distention. Suprapubic cath noted, light yellow urine in bag. Cath site erythematous and purulent drainage. CENTRAL NERVOUS SYSTEM: No facial droop. Speech is clear. Obeys simple commands. Moves extremities. EXTREMITIES: LE in braces [h/o foot drop], no edema appreciated. Principal Diagnosis Catheter associated UTI SVT Discharge Exam Constitutional: WD/WN, vitals as above, NAD, sitting up in bed, pleasant, conversing easily Respiratory: normal respiratory effort, lungs clear to auscultation, no wheeze, rales, rhonchi. Normal insp/exp effort, no accessory muscle use Cardiovascular: RRR, no murmur, no edema Vessels: no JVD or carotid bruit Chest: normal inspection of chest Abdomen: Tenderness in the suprapubic region. Suprapubic catheter in place Musculoskeletal: no cyanosis or clubbing, extremities motor strength 5/5 Skin: no rashes, warm and dry normal turgor Neurologic: PERRL, EOMI, accommodation nl, no face palsy, no dysarthria CN's II- XI intact bilaterally and moves all extremities Psychiatric: A+Ox3, euthymic affect Discharge Data Allergies Allergy/AdvReac Type Severity Reaction Status Date / Time propoxyphene Allergy Intermediate Rash Verified 05/09/23 13:18 fentanyl AdvReac Intermediate PANIC Verified 05/09/23 13:18 WANTS TO RUN AND AGGRESSIVE methocarbamol AdvReac Intermediate DELERIUM Verified 05/09/23 13:18 zolpidem AdvReac Intermediate confusion Verified 05/09/23 13:18 Consultations 03/02/24 18:46 ED Decision to Admit Stat 03/02/24 19:18 Consult Cardiology Routine 03/02/24 19:20 Consult Urology Routine Hospital Course (1) SVT (supraventricular tachycardia): (2) Acute UTI (urinary tract infection): (3) Hypomagnesemia: Elisabeth Ballard is a 73y/o F with PMHx of dyslipidemia, hypothyroidism, DM type II [on long-term insulin therapy], diabetic neuropathy, diabetic gastroparesis, CKD stage III, COPD, HTN, chronic diastolic congestive heart failure, moderate aortic stenosis, CAD, chronic liver disease and cirrhosis, portal hypertensive gastropathy, GERD, GONZALEZ/fatty liver, urinary incontinence [suprapubic catheter in place], Slumzba-Lkuxc-Qknku disease, bipolar disorder presented to the ED for evaluation secondary to tachycardia. Supraventricular Tachycardia (SVT), HTN Patient saw her PCP and was found to be tachycardic w/ a HR ~160bpm. Patient was ultimately referred to the ED by her PCP after she was found to be tachycardic in the office. EKG on presentation to the ED showed SVT w/ HR 159bpm and L anterior fascicular block. Vagal maneuvers ineffective. First received 6mg IV adenosine x 1 dose and reverted back to NSR. Did however go back into SVT about 15 minutes later. Received IV metoprolol 2.5mg x 2 doses and reverted back to NSR once again. During the hospitalization, cardiology was consulted for comanagement. Patient's home metoprolol succinate was increased to twice a day. No recurrence of SVT during the hospitalization. Acute Urinary Tract Infection (UTI) POA Suprapubic Catheter POA - Was previously exchanged 2-3 weeks ago per patient's daughter. Follows w/ [facility]. Patient w/ lower abdominal pain x ~ 2 weeks. Urine has also been darker than usual. Her daughter had noticed malodorous urine from her suprapubic catheter over the past 5 days. Urine analysis suggest infection Urine culture grew E. coli; pansensitive Blood cultureno growth till date She was treated with IV ceftriaxone. Discharged on oral antibiotics. Please note the above document was generated using voice recognition software. It may contain grammatical, syntax or spelling errors. Any formal questions or concerns about the content, text or information contained within the body of this dictation should be directly addressed to the provider for clarification Total Time Total Time Spent Total Time Spent (In Minutes): 35 Total Time Includes: Examination of the Patient, Discharge Planning, Medication Reconciliation, Communication With Other Providers and Other Discharge Plan Discharge Items Patient Disposition: Home - Self-Care Reason For Visit: SVT, ACUTE UTI Discharge Diagnosis: Supraventricular tachycardia Acute UTI Condition on Discharge: Fair Activity: Resume your previous activity Non-emergency contact: Primary Care Provider Call non-emergency contact if: you have any medication questions and your symptoms worsen Follow-up/Referrals: Brian Domínguez MD [Primary Care Provider] - (Date & Time 03/10/2024 11:20 AM Provider Brian Domínguez MD Department [facility] ) Diet: Regular Addtl Attending Provider Instructions: You were admitted to the hospital due to urinary tract infection. You are treated with IV antibiotic during the hospitalization. You are prescribed Augmentin twice a day for 5 more days to complete the treatment course. For your elevated heart rate, you are prescribed metoprolol succinate. Please take it twice a day An appointment with your primary care doctor will be made for you. Please follow-up with them Pending Studies at Discharge: No Stand-Alone Forms: My [facility] AccessData, Smoking Cessation Medications and DC Order Prescriptions: New calcium carbonate-vitamin D3 [Calcium 600 + D(3)] 600 mg-10 mcg (400 unit) tablet 1 tab PO DAILY Qty: 60 0RF amoxicillin-pot clavulanate 875-125 mg tablet 1 tab PO BID 5 Days Qty: 10 0RF Continued atorvastatin 40 mg Tablet 40 mg PO QAM torsemide 20 mg tablet 20 mg PO QAM Rx Instructions: May take 1 additional tablet as needed for swelling. trazodone 50 mg Tablet 100 mg PO HS clonazepam 0.5 mg tablet 0.5 mg PO TID Hold Instructions: Resume on 05/20/23. Till you see your primary care doctor. venlafaxine 150 mg capsule,extended release 24hr 150 mg PO QAM lamotrigine [Lamictal] 25 mg Tablet 25 mg PO QAM lamotrigine [Lamictal] 25 mg Tablet 50 mg PO HS levothyroxine 88 mcg tablet 88 mcg PO QAM potassium chloride [Klor-Con M20] 20 mEq tablet,ER particles/crystals 20 meq PO QAM PRN (Reason: when taking additional torsemide) famotidine 20 mg Tablet 40 mg PO QAM tamsulosin 0.4 mg Capsule 0.4 mg PO QAM pantoprazole 40 mg tablet,delayed release (DR/EC) 40 mg PO AMPM nitroglycerin [Nitrostat] 0.4 mg Tablet, Sublingual 0.4 mg sublingual DIRECTED MDD 3 tablets in 15 minutes PRN (Reason: Chest Pain) Rx Instructions: Q 5 MIN PRN chest pain. gabapentin 300 mg Capsule 300 mg PO BID montelukast 10 mg tablet 10 mg PO DAILY albuterol sulfate 90 mcg/actuation Hfa Aerosol Inhaler 2 inh INHALATION Q6 PRN (Reason: Shortness Of Breath Or Wheezing) fluticasone propionate [Flonase Allergy Relief] 50 mcg/actuation [place],Suspension 2 spray INTRANASAL DAILY Rx Instructions: Administer into each nostril. lamotrigine [Lamictal] 100 mg Tablet 100 mg PO QAM aripiprazole 2 mg Tablet 2 mg PO QAM venlafaxine 75 mg Tablet Extended Release 24hr 75 mg PO QAM Xifaxan 550 mg tablet 550 mg PO BID insulin glargine [Lantus U-100 Insulin] 100 unit/mL solution 35 unit SUBCUT BID aspirin 81 mg tablet,delayed release (DR/EC) 81 mg PO QAM oxybutynin chloride 10 mg tablet extended release 24hr 10 mg PO QAM ascorbic acid (vitamin C) [Vitamin C] 500 mg tablet 500 mg PO AMHS metformin 500 mg tablet extended release 24 hr 500 mg PO QDD spironolactone 50 mg tablet 50 mg PO AMHS budesonide-formoterol [Symbicort] 160-4.5 mcg/actuation HFA aerosol inhaler 2 puff INHALATION [facility]HS nystatin [Nyamyc] 100,000 unit/gram powder 1 applic TOPICAL TID Rx Instructions: Apply to right breast until rash resolved. ondansetron HCl 8 mg tablet 8 mg PO Q8 PRN (Reason: Nausea) dicyclomine 10 mg Capsule 10 mg PO QID PRN (Reason: Abdominal Pain) lactulose 10 gram/15 mL Solution 45 ml PO BID Ozempic 2 mg/dose (8 mg/3 mL) pen injector 2 mg SUBCUT .WEEKLY Changed metoprolol succinate 25 mg Tablet Extended Release 24 Hr 25 mg PO BID Qty: 60 0RF Discontinued ergocalciferol (vitamin D2) [Vitamin D2] 1,250 mcg (50,000 unit) Capsule 1,250 mcg PO .Q THUR Discharge Orders: Discharge Order (Routine); Ordered 03/06/24 Ordered By: Alvaro Doshi/Other Patient Handouts: Managing Type 2 Diabetes, Special Foot Care for Diabetes Admission Data Admit Date/Time: 03/02/24 19:28 Attending Provider: Alvaro Cameron Admit Provider: Jazmin Toussaint Primary Care Provider: Brian Domínguez Other Providers: Jazmin Toussaint; [facility] Other Interventions: Discharge Summary Assessment (RN) Last Done: 03/06/24 08:21
[2024-03-06] MEDS ORDERED: LANTUS PER UNIT CHARGE SC SCH (09:00)
[2024-03-06] MEDS ORDERED: INSULIN GLARGINE SOLOSTAR 100 UNITS/ML 3 ML PEN SC SCH (09:00)
== END 2024-03-06 08:30 | disposition home health service (06) | DRG 309 ==
LOC: ED 16:09 → EDINP 19:28 → SUATTDRO 19:28 → 2S 21:40
DX: Z88.5 Allergy status to narcotic agent; Z96.642 Presence of left artificial hip joint; I35.0 Nonrheumatic aortic (valve) stenosis; N18.30 Chronic kidney disease, stage 3 unspecified; E83.42 Hypomagnesemia; E11.43 Type 2 diabetes mellitus with diabetic autonomic (poly)neuropathy; Z79.85 Long-term (current) use of injectable non-insulin antidiabetic drugs; I13.0 Hypertensive heart and chronic kidney disease with heart failure and stage 1 through stage 4 chronic kidney disease, or unspecified chronic kidney disease; N39.0 Urinary tract infection, site not specified; I47.10 Supraventricular tachycardia, unspecified; Z79.84 Long term (current) use of oral hypoglycemic drugs; F31.9 Bipolar disorder, unspecified; M21.379 Foot drop, unspecified foot; E87.1 Hypo-osmolality and hyponatremia; I50.32 Chronic diastolic (congestive) heart failure; E11.610 Type 2 diabetes mellitus with diabetic neuropathic arthropathy; K31.89 Other diseases of stomach and duodenum; E86.0 Dehydration; I25.10 Atherosclerotic heart disease of native coronary artery without angina pectoris

== ENCOUNTER 2024-04-20 12:55 | Inpatient (IN) ==
[2024-04-20] MEDS: dexAMETHasone**PF** 10 MG/ML VIAL IV ONE (14:02)
[2024-04-20] MEDS: ACETAMINOPHEN 1,000 MG/100 ML VIAL IV STA (14:02)
--- NOTE | 2024-04-20 14:10 | Emergency Department Note ---
Impression & Plan Hypoxia, Generalized weakness, Pneumonia ED Provider Note ED Provider Note NAME: GILES SLOAN AGE:73 SEX: Female : 1950 ARRIVES VIA: EMS INFORMANT: Patient ED PROVIDER(s): Lizzette Mills DO CHIEF COMPLAINT: Recent COVID diagnosis, fever, weakness, hypoxia HPI: This is a 73-year-old female who presents from a local facility due to their concern for increased weakness, confusion, fever noted after patient recently diagnosed with COVID. Patient noted to be hypoxic per EMS and on arrival here in the ER 2 and was placed on oxygen via nasal cannula. Patient states she feels "confused", weak, fatigued, and has a cough. She denies any difficulty swallowing, difficulty breathing, but does admit to chest pain and abdominal pain when she coughs. She denies any vomiting or diarrhea. Staff reports COVID swab was from at home test. PAST MEDICAL HISTORY:See Below PAST SURGICAL HISTORY:See Below FAMILY HISTORY:See Below SOCIAL HISTORY:See Below HOME MEDICATIONS:See Below ALLERGIES:See Below VITALS:See Below PHYSICAL EXAMINATION: GENERAL: alert, well appearing, well nourished, no distress, non-toxic EYE EXAM: normal conjunctiva, PERRL and EOM's grossly intact OROPHARYNX: no exudate, no erythema, lips, buccal mucosa, and tongue normal and mucous membranes are moist NECK: supple, no nuchal rigidity, no adenopathy, non-tender LUNGS: Clear to auscultation. Normal chest wall mechanics, no w/r/r HEART: no murmurs, S1 normal and S2 normal ABDOMEN: abdomen soft, non-tender, normo-active bowel sounds, no masses, no rebound or guarding. SKIN: no rashes, petechiae, orbruising UPPER EXTREMITIES: upper extremities are grossly normal. FROM, nml pulses b/l. LOWER EXTREMITIES: No pitting edema. FROM, nml pulses b/l. NEURO EXAM: Can answer questions of orientation but confused to recent events and PMHx, cranial nerves II-XII grossly intact, normal speech, no facial droop,nogross weakness of arms, no gross weakness of legs. Gross sensation intact. No ataxia. Vital Signs: reviewed and remarkable Differential Diagnosis: pneumonia, bronchitis, COPD/Asthma exacerbation, pneumothorax, pulmonary embolism, congestive heart failure, acute coronary syndrome, as well as others were considered MEDICAL DECISION MAKING: This is a 73 yo female brought be EMS with reported fever, cough, hypoxia, fatigue and recent positive COVID test. She was fever on arrival and hypoxic on RA at 87-88% and was placed on oxygen via NC with improvement. Labs drawn and sent, IV established, EKG and CXR performed and interpreted at bedside, and patient placed on telemetry. COVID test couldn't be confirmed so a swab was sent here. Given initial presumption and hypoxia she was given IV decadron. She was given oral apap for fever. Swab was ultimately negative. THis was expanded into a biofire and additional labs added. VBG reassuring and ammonia within normal range. Due to IVF restrictions, she was encouraged to take po. Biofire ultimately negative. Given clinical symptoms otherwise suggestive of pna, patient started on rocephin and doxycycline. Case discussed with the hospitalist team for additional evaluation and mgmt. Consultation(s): 1635: Discussed with Manpreet Carty hospitalist team, for additional evaluation and management. ER Treatment Provided: See below Diagnostics Interpreted By Me: -ECG: Normal sinus at 99, left axis deviation, normal intervals, nonspecific ST/T wave change -Cardiac Monitoring: An order was placed for continuous cardiac monitoring. The monitor shows a rate of 98 with normal sinus rhythm. -Laboratory studies: As stated above and show below. -Imaging studies: X-ray Chest: A single view study of the chest was reviewed and was negative for cardiomegaly, focal infiltrate, effusion, pulmonary edema, or wide mediastinum. Triage Nursing Note Reviewed Prior/Outside Records Reviewed Past Med/Surg History Problem List (Updated 04/21/24 @ 21:08 by Lizzette Mills DO) Pneumonia (Acute) Acute hypoxic respiratory failure Generalized weakness (Acute) (HFpEF) heart failure with preserved ejection fraction Aortic stenosis ASCVD (arteriosclerotic cardiovascular disease) Hypomagnesemia (Acute) Hyponatremia (Acute) Acute dehydration (Acute) Elevated troponin (Acute) Acute UTI (Acute) SVT (supraventricular tachycardia) (Acute) SVT (supraventricular tachycardia) Non-ST elevation OH (NSTEMI) (Acute) Acute confusion (Acute) Fracture of femur, distal, left, closed Encephalopathy (Acute) Non-ST elevation OH (NSTEMI) (Acute) Acute hyponatremia (Acute) Hypocalcemia (Acute) Postoperative anemia Sepsis associated hypotension Edema leg Chronic heart failure with preserved ejection fraction CAD (coronary artery disease), [place] coronary artery Preop cardiovascular exam Abdominal distension Femoral distal fracture (Acute) Fall (Acute) Abnormal ankle brachial index Diabetic foot ulcer DVT prophylaxis UTI (urinary tract infection) (Acute) Failure of outpatient treatment (Acute) Flank pain (Acute) Urinary tract infection due to ESBL Klebsiella Hyponatremia Encounter for pre-operative examination Pyelonephritis (Acute) Acute UTI (Acute) Weakness (Acute) Pneumonia (Acute) Confusion (Acute) Encounter for rehabilitation evaluation Fever Cough CAP (community acquired pneumonia) Elevated troponin Hypomagnesemia Sepsis (Acute) Pneumonia (Acute) Fever (Acute) Hypoxia (Acute) Cirrhosis of liver not due to alcohol Demand ischemia Unstable angina Chest pain (Acute) Blood glucose elevated (Acute) Discharge planning issues Altered mental status Fall (Acute) CHI (closed head injury) (Acute) Weakness (Acute) Abdominal pain (Acute) Candidal UTI (urinary tract infection) H/O urinary retention COVID-19 (Acute) Fall (Acute) Ambulatory dysfunction Recurrent falls Ambulatory dysfunction (Acute) 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 09/20/19 (hepatic encephalopathy) Chronic pain syndrome S/P CABG x 1 (Chronic) 2010 - single vessel S/P CARLOS (total abdominal hysterectomy) (Chronic) Hx of cholecystectomy (Chronic) History of back surgery (Chronic) sacral area History of appendectomy (Chronic) History of total right knee replacement (Chronic) Anxiety (Chronic) Bipolar disorder (Chronic) Sskddzr-Tpiyw-Jwtwt disease (Chronic) follows w/ Dr. Lemus LEG WEAKNESS CURRENT PT/OT FOR - BRACES B/L LEGS Gastroparesis (Chronic) Portal hypertensive gastropathy (Chronic) GONZALEZ (nonalcoholic steatohepatitis) (Chronic) Moderate aortic stenosis (Chronic) Chronic diastolic CHF (congestive heart failure) (Chronic) Hypertension (Chronic) CAD (coronary artery disease) (Chronic) History of multiple PCI's to the RCA with subsequent CABG x1 in 2010 x 1 vessel Most recent cardiac testing-negative DSE in December 2017 Follows w/ Dr. Blackwell and Dr. Lucas DM type 2 (diabetes mellitus, type 2) (Chronic) IDDM Hypothyroidism (Chronic) Dyslipidemia (Chronic) Medical History Cardiac arrest pt states she was told she went into cardiac arrest during her hip surgery in 02/2022 at [facility] and was "revived". no other details were given. Palpitations occasionally -- pt states since her metoprolol has been decreased. Cough started about 8 months ago s/p covid-19 virus -- currently treating with augmentin PO bid and prednisone. prednisone to end 05/27/22 and abx to finish on 06/01/22 Hx of fall pt. fell in the bathroom at home, pt. wasn't aware of what happen but was told this by her family 02/05/2022 History of anesthesia reaction REMOTE HX, SIDE EFFECTS : ANXIETY AND SEVERE N/V History of COVID-19 may or june 2021, has cough since. SOB (shortness of breath) SINCE COVID -8 MON AGO, SOB, COUGH...NO DX...HAS VISIT WITH PULM UPCOMING TO EVALUATE Urinary incontinence UTI (urinary tract infection) FREQUENT/PREVENTATIVE ABX'S CURRENTLY MOST RECENT UTI JANUARY 04 - ABX COMPLETE - ON CURRENT PROPHYLACTIC TX Irregular heart beat follows Dr. 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 > 6 or 7 stents > follows Dr. Lucas History of cardiac cath multiple - most recent - 2 years ago @ [facility] Family History Father Coronary heart disease Brother Coronary heart disease Father No problems noted. Mother No problems noted. Other No family history of adverse response to anesthesia Social History Smoking Status: Never smoker Tobacco Type: Cigarettes Second Hand Exposure: Yes; Do You Dip or Chew Tobacco: No; Hx Alcohol Use: No Hx Substance Use: No Preferred Language: Mohawk Communication Ability: Disoriente Visual Impairment: Partially Limited Hearing Ability: Hard of Hearing Pharmacoepidemiologist Required: No Beliefs That Will Affect Care: None marital status: / Current [facility]uation[facility] Current Living Situation Comment: [facility] How many Children do You have: 3 Other Information That Helps Us Care for You: No Feels Safe at Home: Yes Safety Concerns: Feels Safe At This Time Diet: low carbohydrate and low salt caffeine: No Assistive Devices: Hospital Bed, Lift Chair, Walker and Wheelchair Allergies Allergies Allergy/AdvReac Type Severity Reaction Status Date / Time propoxyphene Allergy Intermediate Rash Verified 05/09/23 13:18 fentanyl AdvReac Intermediate PANIC Verified 05/09/23 13:18 WANTS TO RUN AND AGGRESSIVE methocarbamol AdvReac Intermediate DELERIUM Verified 05/09/23 13:18 zolpidem AdvReac Intermediate confusion Verified 05/09/23 13:18 Home Meds Home Medications Medication Instructions Recorded Confirmed albuterol sulfate 90 mcg/actuation 2 inh inhalation Q6 PRN Shortness 02/07/23 04/20/24 aerosol inhaler Of Breath Or Wheezing aripiprazole 2 mg tablet 2 mg PO QAM 02/07/23 04/20/24 atorvastatin 40 mg tablet 40 mg PO QAM 02/07/23 04/20/24 clonazepam 0.5 mg tablet 0.5 mg PO TID 02/07/23 04/20/24 famotidine 20 mg tablet 40 mg PO QAM 02/07/23 04/20/24 fluticasone propionate 50 2 spray intranasal DAILY 02/07/23 04/20/24 mcg/actuation nasal spray,suspension (Flonase Allergy Relief) gabapentin 300 mg capsule 300 mg PO BID 02/07/23 04/20/24 lamotrigine 100 mg tablet 100 mg PO QAM 02/07/23 04/20/24 (Lamictal) lamotrigine 25 mg tablet (Lamictal) 25 mg PO QAM 02/07/23 04/20/24 lamotrigine 25 mg tablet (Lamictal) 50 mg PO HS 02/07/23 04/20/24 levothyroxine 88 mcg tablet 88 mcg PO QAM 02/07/23 04/20/24 montelukast 10 mg tablet 10 mg PO DAILY 02/07/23 04/20/24 nitroglycerin 0.4 mg sublingual 0.4 mg sublingual DIRECTED PRN 02/07/23 04/20/24 tablet (Nitrostat) Chest Pain pantoprazole 40 mg tablet,delayed 40 mg PO AMPM 02/07/23 04/20/24 release potassium chloride 20 mEq 20 meq PO QAM PRN when taking 02/07/23 04/20/24 tablet,extended additional torsemide release(part/cryst) (Klor-Con M) rifaximin 550 mg tablet (Xifaxan) 550 mg PO BID 02/07/23 04/20/24 tamsulosin 0.4 mg capsule 0.4 mg PO QAM 02/07/23 04/20/24 torsemide 20 mg tablet 20 mg PO QAM 02/07/23 04/20/24 trazodone 50 mg tablet 100 mg PO HS 02/07/23 04/20/24 venlafaxine 150 mg 150 mg PO QAM 02/07/23 04/20/24 capsule,extended release 24 hr venlafaxine 75 mg tablet,extended 75 mg PO QAM 02/07/23 04/20/24 release 24 hr insulin glargine 100 unit/mL 35 unit subcut BID 05/09/23 04/20/24 subcutaneous solution (Lantus U-100 Insulin) ascorbic acid (vitamin C) 500 mg 500 mg PO AMHS 05/12/23 04/20/24 tablet (Vitamin C) aspirin 81 mg tablet,delayed 81 mg PO QAM 05/12/23 04/20/24 release budesonide-formoterol HFA 160 2 puff inhalation AMHS 05/12/23 04/20/24 mcg-4.5 mcg/actuation aerosol inhaler (Symbicort) dicyclomine 10 mg capsule 10 mg PO QID PRN Abdominal Pain 05/12/23 04/20/24 metformin 500 mg tablet,extended 500 mg PO QDD 05/12/23 04/20/24 release 24 hr nystatin 100,000 unit/gram topical 1 applic topical TID 05/12/23 04/20/24 powder (Nyamyc) ondansetron HCl 8 mg tablet 8 mg PO Q8 PRN Nausea 05/12/23 04/20/24 oxybutynin chloride 10 mg 10 mg PO QAM 05/12/23 04/20/24 tablet,extended release 24 hr spironolactone 50 mg tablet 50 mg PO AMHS 05/12/23 04/20/24 lactulose 10 gram/15 mL oral 45 ml PO BID 03/02/24 04/20/24 solution semaglutide 2 mg/dose (8 mg/3 mL) 2 mg subcut .WEEKLY 03/02/24 04/20/24 subcutaneous pen injector (Ozempic) Previous Rx's Medication Instructions Recorded calcium 600 mg (as 1 tab PO DAILY #60 tabs 03/05/24 carbonate)-vitamin D3 10 mcg (400 unit) tablet (Calcium 600 + D(3)) metoprolol succinate 25 mg 25 mg PO BID #60 tabs 03/05/24 tablet,extended release 24 hr Results & Data (ED) Vital Signs Vital Signs - 24 hr 04/20/24 13:10 04/20/24 13:10 04/20/24 13:17 Temperature 38.6 C H 38.6 C H Temperature Source Oral Oral Pulse Rate 94 H Pulse Rate [Apical] 94 H Respiratory Rate 19 18 Respiratory Effort / Characteristics Non-Labored Spontaneous Non-Labored Spontaneous Respiratory Depth Normal Normal Blood Pressure 111/69 Blood Pressure [Right Arm] 111/69 Blood Pressure Mean 83 Blood Pressure Mean [Right Arm] 83 Blood Pressure Position Semi-fowlers Pulse Oximetry 87 L 87 L 92 Oxygen Delivery Method Room Air Room Air Nasal Cannula Oxygen Flow Rate 2 Sepsis Recent Fever Within 48 Hours Yes Sepsis New/Unexplained Change in Mental Status N/A Sepsis Action Taken by Nursing No Action Required 04/20/24 14:07 04/20/24 15:30 04/20/24 15:37 Temperature 37.7 C H Temperature Source Oral Pulse Rate 96 H Pulse Rate [Apical] 73 Respiratory Rate 22 Respiratory Effort / Characteristics Non-Labored Spontaneous Respiratory Depth Normal Blood Pressure Blood Pressure [Right Arm] 129/58 L Blood Pressure Mean Blood Pressure Mean [Right Arm] 81 Blood Pressure Position Pulse Oximetry 95 Oxygen Delivery Method Nasal Cannula Oxygen Flow Rate 2 Sepsis Recent Fever Within 48 Hours Sepsis New/Unexplained Change in Mental Status Sepsis Action Taken by Nursing Laboratory Data 04/21/24 05:36 04/21/24 05:36 Lab Results 04/20/24 04/20/24 04/20/24 Range/Units 13:10 13:18 13:18 WBC 16.66 H (4.8-10.8) K/ul RBC 4.78 (4.20-5.40) M/uL Hgb 13.0 (12.0-16.0) g/dl Hct 39.5 (37.0-47.0) % MCV 82.6 (80.0-100.0) fL MCH 27.2 (25.0-34.0) pg MCHC 32.9 (32.0-36.0) g/dL RDW Std Deviation 45.4 (36.4-46.3) fL RDW Coeff of Guillermo 15.1 H (11.5-14.5) % Plt Count 106 L (130-400) K/uL MPV 10.8 (9.4-12.4) fL Immature Gran % (Auto) 0.7 % Neut % (Auto) 88.0 % Lymph % (Auto) 5.7 % Moffat % (Auto) 4.1 % Eos % (Auto) 1.2 % Baso % (Auto) 0.3 % Neut # (Auto) 14.67 H (1.40-6.50) K/uL Lymph # (Auto) 0.95 L (1.20-3.40) K/uL Moffat # (Auto) 0.68 H (0.11-0.59) K/uL Eos # (Auto) 0.20 (0.00-0.50) K/uL Baso # (Auto) 0.05 (0.00-0.20) K/uL Immature Gran # (Auto) 0.11 (0.01-0.20) K/uL PT 11.0 (9.0-12.0) Seconds INR 1.0 (0.9-1.1) VBG pH (7.36-7.41) VBG pCO2 (38-50) mmHg VBG pO2 mmHg VBG HCO3 mmol/L VBG O2 Saturation % VBG Base Excess mEq/L Sodium 133 L (136-145) mmol/L Potassium 3.7 (3.5-5.1) mmol/L Chloride 98 (98-107) mmol/L Carbon Dioxide 27 (21-32) mmol/L Anion Gap 8 (3-11) BUN 11 (6-23) mg/dl Creatinine 1.17 (0.6-1.2) mg/dl Est Cr Clr Drug Dosing 51.2 ml/min eGFR 48.97 BUN/Creatinine Ratio 9.4 L (10-20) Glucose 127 H (70-99(Fasting)) mg/dl Calcium 9.1 (8.6-10.3) mg/dl Magnesium 1.5 L (1.7-2.4) mg/dl Total Bilirubin 0.8 (0.2-1.0) mg/dl AST 16 (13-39) U/L ALT 11 (7-52) U/L Alkaline Phosphatase 107 H (34-104) U/L Ammonia (18-72) umol/L Troponin I High Sens 15.8 H (0-14) pg/ml Total Protein 6.5 (6.0-8.3) gm/dl Albumin 3.7 (3.4-5.0) gm/dl Globulin 2.8 (2.5-4.0) gm/dl Albumin/Globulin Ratio 1.3 (0.9-2) Procalcitonin 0.37 (0-0.5) ng/ml Adenovirus (PCR) Not Detected (NotDetected) B. pertussis DNA (PCR) Not Detected (NotDetected) B.parapertussis DNA PCR Not Detected (NotDetected) C. pneumoniae DNA (PCR) Not Detected (NotDetected) Coronavirus OC43 (PCR) Not Detected (NotDetected) Coronavirus HKU1 (PCR) Not Detected (NotDetected) Coronavirus 229E (PCR) Not Detected (NotDetected) SARS-CoV-2 (PCR) NEGATIVE Not Detected (Negative) Coronavirus NL63 (PCR) Not Detected (NotDetected) Human Metapneumovir PCR Not Detected (NotDetected) Influenza Type A (PCR) Negative (Neg) Influenza Type B (PCR) (Neg) M. pneumoniae (PCR) (NotDetected) Parainfluenza 1 (PCR) (NotDetected) Parainfluenza 2 (PCR) (NotDetected) Parainfluenza 3 (PCR) (NotDetected) Parainfluenza 4 (PCR) (NotDetected) RSV (RT-PCR) (Neg) RSV (PCR) (NotDetected) Entero/Rhino (PCR) (NotDetected) 04/20/24 04/20/24 04/20/24 Range/Units 13:18 13:18 15:40 WBC (4.8-10.8) K/ul RBC (4.20-5.40) M/uL Hgb (12.0-16.0) g/dl Hct (37.0-47.0) % MCV (80.0-100.0) fL MCH (25.0-34.0) pg MCHC (32.0-36.0) g/dL RDW Std Deviation (36.4-46.3) fL RDW Coeff of Guillermo (11.5-14.5) % Plt Count (130-400) K/uL MPV (9.4-12.4) fL Immature Gran % (Auto) % Neut % (Auto) % Lymph % (Auto) % Moffat % (Auto) % Eos % (Auto) % Baso % (Auto) % Neut # (Auto) (1.40-6.50) K/uL Lymph # (Auto) (1.20-3.40) K/uL Moffat # (Auto) (0.11-0.59) K/uL Eos # (Auto) (0.00-0.50) K/uL Baso # (Auto) (0.00-0.20) K/uL Immature Gran # (Auto) (0.01-0.20) K/uL PT (9.0-12.0) Seconds INR (0.9-1.1) VBG pH (7.36-7.41) VBG pCO2 (38-50) mmHg VBG pO2 mmHg VBG HCO3 mmol/L VBG O2 Saturation % VBG Base Excess mEq/L Sodium (136-145) mmol/L Potassium (3.5-5.1) mmol/L Chloride (98-107) mmol/L Carbon Dioxide (21-32) mmol/L Anion Gap (3-11) BUN (6-23) mg/dl Creatinine (0.6-1.2) mg/dl Est Cr Clr Drug Dosing ml/min eGFR BUN/Creatinine Ratio (10-20) Glucose (70-99(Fasting)) mg/dl Calcium (8.6-10.3) mg/dl Magnesium (1.7-2.4) mg/dl Total Bilirubin (0.2-1.0) mg/dl AST (13-39) U/L ALT (7-52) U/L Alkaline Phosphatase (34-104) U/L Ammonia 33.0 (18-72) umol/L Troponin I High Sens (0-14) pg/ml Total Protein (6.0-8.3) gm/dl Albumin (3.4-5.0) gm/dl Globulin (2.5-4.0) gm/dl Albumin/Globulin Ratio (0.9-2) Procalcitonin (0-0.5) ng/ml Adenovirus (PCR) (NotDetected) B. pertussis DNA (PCR) (NotDetected) B.parapertussis DNA PCR (NotDetected) C. pneumoniae DNA (PCR) (NotDetected) Coronavirus OC43 (PCR) (NotDetected) Coronavirus HKU1 (PCR) (NotDetected) Coronavirus 229E (PCR) (NotDetected) SARS-CoV-2 (PCR) (Negative) Coronavirus NL63 (PCR) (NotDetected) Human Metapneumovir PCR (NotDetected) Influenza Type A (PCR) Not Detected (Neg) Influenza Type B (PCR) Negative Not Detected (Neg) M. pneumoniae (PCR) Not Detected (NotDetected) Parainfluenza 1 (PCR) Not Detected (NotDetected) Parainfluenza 2 (PCR) Not Detected (NotDetected) Parainfluenza 3 (PCR) Not Detected (NotDetected) Parainfluenza 4 (PCR) Not Detected (NotDetected) RSV (RT-PCR) Negative (Neg) RSV (PCR) Not Detected (NotDetected) Entero/Rhino (PCR) Not Detected (NotDetected) 04/20/24 Range/Units 15:47 WBC (4.8-10.8) K/ul RBC (4.20-5.40) M/uL Hgb (12.0-16.0) g/dl Hct (37.0-47.0) % MCV (80.0-100.0) fL MCH (25.0-34.0) pg MCHC (32.0-36.0) g/dL RDW Std Deviation (36.4-46.3) fL RDW Coeff of Guillermo (11.5-14.5) % Plt Count (130-400) K/uL MPV (9.4-12.4) fL Immature Gran % (Auto) % Neut % (Auto) % Lymph % (Auto) % Moffat % (Auto) % Eos % (Auto) % Baso % (Auto) % Neut # (Auto) (1.40-6.50) K/uL Lymph # (Auto) (1.20-3.40) K/uL Moffat # (Auto) (0.11-0.59) K/uL Eos # (Auto) (0.00-0.50) K/uL Baso # (Auto) (0.00-0.20) K/uL Immature Gran # (Auto) (0.01-0.20) K/uL PT (9.0-12.0) Seconds INR (0.9-1.1) VBG pH 7.37 (7.36-7.41) VBG pCO2 51 H (38-50) mmHg VBG pO2 59 mmHg VBG HCO3 30 mmol/L VBG O2 Saturation 90.4 % VBG Base Excess 3.1 mEq/L Sodium (136-145) mmol/L Potassium (3.5-5.1) mmol/L Chloride (98-107) mmol/L Carbon Dioxide (21-32) mmol/L Anion Gap (3-11) BUN (6-23) mg/dl Creatinine (0.6-1.2) mg/dl Est Cr Clr Drug Dosing ml/min eGFR BUN/Creatinine Ratio (10-20) Glucose (70-99(Fasting)) mg/dl Calcium (8.6-10.3) mg/dl Magnesium (1.7-2.4) mg/dl Total Bilirubin (0.2-1.0) mg/dl AST (13-39) U/L ALT (7-52) U/L Alkaline Phosphatase (34-104) U/L Ammonia (18-72) umol/L Troponin I High Sens (0-14) pg/ml Total Protein (6.0-8.3) gm/dl Albumin (3.4-5.0) gm/dl Globulin (2.5-4.0) gm/dl Albumin/Globulin Ratio (0.9-2) Procalcitonin (0-0.5) ng/ml Adenovirus (PCR) (NotDetected) B. pertussis DNA (PCR) (NotDetected) B.parapertussis DNA PCR (NotDetected) C. pneumoniae DNA (PCR) (NotDetected) Coronavirus OC43 (PCR) (NotDetected) Coronavirus HKU1 (PCR) (NotDetected) Coronavirus 229E (PCR) (NotDetected) SARS-CoV-2 (PCR) (Negative) Coronavirus NL63 (PCR) (NotDetected) Human Metapneumovir PCR (NotDetected) Influenza Type A (PCR) (Neg) Influenza Type B (PCR) (Neg) M. pneumoniae (PCR) (NotDetected) Parainfluenza 1 (PCR) (NotDetected) Parainfluenza 2 (PCR) (NotDetected) Parainfluenza 3 (PCR) (NotDetected) Parainfluenza 4 (PCR) (NotDetected) RSV (RT-PCR) (Neg) RSV (PCR) (NotDetected) Entero/Rhino (PCR) (NotDetected) Administered Medications Acetaminophen (Acetaminophen 500 Mg Tab) 1,000 mg PO Q8H PRN PRN Reason: pain or fever Stop: 05/21/24 15:06 Last Admin: 04/21/24 15:28 Dose: 1,000 mg Documented By: DAVID Albuterol (Albut/Ipratrop 3mg/0.5mg Neb 3 Ml Vial) 3 ml NEB Q6R [facility]; Protocol Stop: 05/20/24 18:59 Last Admin: 04/21/24 19:22 Dose: 3 ml Documented By: Admin: 04/21/24 13:37 Dose: 3 ml Documented By: Admin: 04/21/24 07:15 Dose: 3 ml Documented By: Admin: 04/21/24 01:11 Dose: 3 ml Documented By: Admin: 04/20/24 19:36 Dose: 3 ml Documented By: KANE Aripiprazole (Aripiprazole 1 Mg/Ml Oral Soln 150 Ml Btl) 2 mg PO QAM [facility] Stop: 05/21/24 08:59 Last Admin: 04/21/24 08:06 Dose: 2 mg Documented By: DAVID Ascorbic Acid (Ascorbic Acid 500 Mg Tab) 500 mg PO AMHS [facility] Stop: 05/20/24 20:59 Last Admin: 04/21/24 08:03 Dose: 500 mg Documented By: Admin: 04/20/24 21:13 Dose: 500 mg Documented By: KENNETH Aspirin ([facility]in 81 Mg [facility]ab) [facility]: 05/21/24 08:59 Last Admin: 04/21/24 08:05 Dose: 81 mg Documented By: DAVID Atorvastatin Calcium (Atorvastatin 40 Mg Tab) [facility]: 05/21/24 08:59 Last Admin: 04/21/24 08:06 Dose: 40 mg Documented By: DAVID Calcium/Vitamin D (Calcium 600mg + Vit D 400 Iu Tab) 1 tab PO DAILY [facility] Stop: 05/21/24 08:59 Last Admin: 04/21/24 08:05 Dose: 1 tab Documented By: DAVID Clonazepam (Clonazepam 0.5 Mg Tab) 0.5 mg PO TID [facility] Stop: 05/20/24 20:59 Last Admin: 04/21/24 13:05 Dose: 0.5 mg Documented By: Admin: 04/21/24 08:05 Dose: 0.5 mg Documented By: Admin: 04/20/24 21:21 Dose: 0.5 mg Documented By: KENNETH Doxycycline Hyclate (Doxycycline Hyclate 100 Mg Cap) 100 mg PO BID [facility] Stop: 04/27/24 20:59 Last Admin: 04/21/24 08:03 Dose: 100 mg Documented By: Admin: 04/20/24 21:13 Dose: 100 mg Documented By: KENNETH Famotidine (Famotidine 20 Mg Tab) 20 mg PO QAM [facility] Stop: 05/21/24 08:59 Last Admin: 04/21/24 08:05 Dose: 20 mg Documented By: DAVID Fluticasone Propionate (Fluticasone Propionate Na Spr 16 Gm Btl) 2 sprays NA DAILY [facility] Stop: 05/21/24 08:59 Last Admin: 04/21/24 08:02 Dose: 2 sprays Documented By: DAVID Fluticasone/Vilanterol (Fluticasone/Vilanterol 100/25mcg 14 Puffs/Inhaler) 1 puffs INH DAILY [facility]; Protocol Stop: 05/21/24 08:59 Last Admin: 04/21/24 08:01 Dose: 1 puffs Documented By: DAVID Gabapentin (Gabapentin 300 Mg Cap) 300 mg PO BID [facility] Stop: 05/20/24 20:59 Last Admin: 04/21/24 08:04 Dose: 300 mg Documented By: Admin: 04/20/24 21:10 Dose: 300 mg Documented By: KENNETH Heparin Sodium (Porcine) (Heparin Sod 5,000 Unit/0.5 Ml Vial) 7,500 units SQ Q12 ANGELLA Stop: 05/20/24 20:59 Last Admin: 04/21/24 08:00 Dose: 7,500 units Documented By: Admin: 04/20/24 21:21 Dose: 7,500 units Documented By: KENNETH Ceftriaxone Sodium (Rocephin) 2,000 mg in 50 mls @ 100 mls/hr IV Q24H ANGELLA Stop: 04/27/24 18:29 Last Infusion: 04/21/24 20:51 Dose: Infused Documented By: Infusion: 04/21/24 20:07 Dose: 100 mls/hr Documented By: Infusion: 04/21/24 20:01 Dose: 0 mls/hr Documented By: Admin: 04/21/24 19:56 Dose: 100 mls/hr Documented By: Infusion: 04/20/24 20:00 Dose: Infused Documented By: Admin: 04/20/24 19:29 Dose: 100 mls/hr Documented By: AES Insulin Aspart (Insulin Aspart Per Unit Charge) 0 units SC ACHS [facility]; Protocol Stop: 05/20/24 18:59 Last Admin: 04/21/24 17:39 Dose: 9 units Documented By: DAVID Co-signed By: GUZMAN Admin: 04/21/24 13:04 Dose: 10 units Documented By: DAVID Co-signed By: GUZMAN Admin: 04/21/24 08:49 Dose: 9 units Documented By: DAVID Co-signed By: DRU Admin: 04/20/24 21:14 Dose: Not Given Documented By: Admin: 04/20/24 21:13 Dose: Not Given Documented By: KENNETH Lactulose (Lactulose Syrup 30 Gm/45 Ml Udp) 30 gm PO BID [facility] Stop: 05/20/24 20:59 Last Admin: 04/21/24 07:58 Dose: Not Given Documented By: Admin: 04/20/24 21:19 Dose: Not Given Documented By: KENNETH Lamotrigine (Lamotrigine 25 Mg Tab) 25 mg PO [facility]; Protocol Stop: 05/21/24 08:59 Last Admin: 04/21/24 08:05 Dose: 25 mg Documented By: DAVID Lamotrigine (Lamotrigine 25 Mg Tab) 50 mg PO [facility]; Protocol Stop: 05/20/24 20:59 Last Admin: 04/20/24 21:11 Dose: 50 mg Documented By: KENNETH Lamotrigine (Lamotrigine 100 Mg Tab) 100 mg PO [facility]; Protocol Stop: 05/21/24 08:59 Last Admin: 04/21/24 08:05 Dose: 100 mg Documented By: DAVID Levothyroxine Sodium (Levothyroxine Sodium 88 Mcg Tablet) [facility] Stop[facility] 05/21/24 06:29 Last Admin: 04/21/24 06:20 Dose: 88 mcg Documented By: ALANA Magnesium Oxide (Magnesium Oxide 400 Mg Tab) 400 mg PO [facility] Stop: 05/21/24 08:59 Last Admin: 04/21/24 08:05 Dose: 400 mg Documented By: DAVID Metoprolol Succinate (Metoprolol Succ 25mg Ext Rel Tab) 25 mg PO BID [facility] Stop: 05/20/24 20:59 Last Admin: 04/21/24 08:04 Dose: 25 mg Documented By: Admin: 04/20/24 21:11 Dose: 25 mg Documented By: KENNETH Montelukast Sodium (Montelukast Sodium 10 Mg Tablet) 10 mg PO DAILY [facility] Stop: 05/21/24 08:59 Last Admin: 04/21/24 08:05 Dose: 10 mg Documented By: DAVID Oxybutynin Chloride (Oxybutynin Chloride Xl 5 Mg Tabcr) 10 mg PO [facility] Stop: 05/21/24 08:59 Last Admin: 04/21/24 08:04 Dose: 10 mg Documented By: DAVID Pantoprazole Sodium (Pantoprazole 40 Mg Tab) 40 mg PO BID [facility] Stop: 05/20/24 20:59 Last Admin: 04/21/24 08:04 Dose: 40 mg Documented By: Admin: 04/20/24 21:11 Dose: 40 mg Documented By: KENNETH Rifaximin (Rifaximin 550 Mg Tablet) 550 mg PO BID [facility] Stop: 05/20/24 20:59 Last Admin: 04/21/24 08:03 Dose: 550 mg Documented By: Admin: 04/20/24 21:12 Dose: 550 mg Documented By: KENNETH Spironolactone (Spironolactone 25 Mg Tab) 50 mg PO [facility] Stop: 05/20/24 20:59 Last Admin: 04/21/24 20:49 Dose: Not Given Documented By: Admin: 04/21/24 08:03 Dose: 50 mg Documented By: Admin: 04/20/24 21:12 Dose: 50 mg Documented By: KENNETH Tamsulosin HCl (Tamsulosin Hcl 0.4 Mg Cap) 0.4 mg PO QAM [facility] Stop: 05/21/24 08:59 Last Admin: 04/21/24 08:06 Dose: 0.4 mg Documented By: DAVID Torsemide (Torsemide 20 Mg Tab) 20 mg PO QAM [facility] Stop: 05/21/24 08:59 Last Admin: 04/21/24 08:04 Dose: 20 mg Documented By: DAVID Trazodone HCl (Trazodone Hcl 100 Mg Tab) 100 mg PO HS [facility] Stop: 05/20/24 20:59 Last Admin: 04/20/24 21:12 Dose: 100 mg Documented By: KENNETH Venlafaxine HCl (Venlafaxine Hcl Xr 150 Mg Capxr) 150 mg PO QAM [facility] Stop: 05/21/24 08:59 Last Admin: 04/21/24 08:04 Dose: 150 mg Documented By: DAVID Venlafaxine HCl (Venlafaxine Hcl Xr 75 Mg Capxr) 75 mg PO QAM [facility] Stop: 05/21/24 08:59 Last Admin: 04/21/24 08:06 Dose: 75 mg Documented By: DAVID Discontinued Medications Acetaminophen (Acetaminophen 325 Mg Tab) 650 mg PO NOW STA Stop: 04/21/24 06:08 Last Admin: 04/21/24 06:19 Dose: 650 mg Documented By: ALANA Dexamethasone Sodium Phosphate (DexamethasonePf 10 Mg/Ml Vial) 6 mg IV NOW ONE Stop: 04/20/24 13:54 Last Admin: 04/20/24 14:02 Dose: 6 mg Documented By: ANAI Doxycycline Hyclate (Doxycycline Hyclate 100 Mg Cap) 100 mg PO NOW STA Stop: 04/20/24 17:04 Last Admin: 04/20/24 17:40 Dose: 100 mg Documented By: DORYS Acetaminophen (Ofirmev) 1,000 mg in 100 mls @ 400 mls/hr IV NOW STA Stop: 04/20/24 14:07 Last Infusion: 04/20/24 15:00 Dose: Infused Documented By: Admin: 04/20/24 14:02 Dose: 400 mls/hr Documented By: ANAI Magnesium Sulfate/Dextrose (Magnesium Sulfate / D5w) 1 gm in 100 mls @ 100 mls/hr IV NOW STA Stop: 04/20/24 15:33 Last Infusion: 04/20/24 16:15 Dose: Infused Documented By: Admin: 04/20/24 15:08 Dose: 100 mls/hr Documented By: DORYS Magnesium Sulfate/Dextrose (Magnesium Sulfate / D5w) 1 gm in 100 mls @ 100 mls/hr IV NOW STA Stop: 04/20/24 17:55 Last Infusion: 04/20/24 18:35 Dose: Infused Documented By: Admin: 04/20/24 17:02 Dose: 100 mls/hr Documented By: DORYS Ceftriaxone Sodium (Rocephin) 2,000 mg in 50 mls @ 100 mls/hr IV NOW STA Stop: 04/20/24 17:32 Last Admin: 04/20/24 18:34 Dose: Not Given Documented By: DOROTEO Methylprednisolone 40 mg/ (Syringe) 0.64 mls @ 1.5 mls/min IV QAM [facility] Stop: 05/21/24 08:59 Last Admin: 04/21/24 08:03 Dose: 1.5 mls/min Documented By: DAVID Insulin Glargine (Lantus Per Unit Charge) 35 units SQ BID [facility]; Protocol Stop: 05/20/24 20:59 Last Admin: 04/20/24 21:30 Dose: Not Given Documented By: KENNETH Insulin Glargine (Lantus Per Unit Charge) 20 units SQ BID [facility]; Protocol Stop: 05/20/24 21:29 Last Admin: 04/21/24 08:49 Dose: 20 units Documented By: DAVID Co-signed By: DRU Admin: 04/20/24 21:37 Dose: 20 units Documented By: KENNETH Co-signed By: AES Imaging Data Radiologist's Impression: Chest X-Ray 04/20/24 13:53 XR chest 1V portable CLINICAL HISTORY: cough, hypoxia TECHNIQUE: Single frontal radiograph of the chest was obtained. Comparison: Comparison is made to chest radiograph 03/29/2024 FINDINGS: Median sternotomy wires are unchanged. Cardiomegaly is noted. Elevation of the right hemidiaphragm is seen. Faint airspace opacities are in the bilateral perihilar region. No evidence of pleural effusion or pneumothorax. IMPRESSION: Faint airspace opacities may reflect infectious/inflammatory process. ACT 112: Negative or not required by law. Electronically signed by: Joel Cuellar M.D. 04/20/2024 2:30 PM Discharge Plan Visit Data Chief Complaint: Illness Stated Complaint: illness ED Provider: Lizzette Mills Discharge Problem: Hypoxia, Generalized weakness, Pneumonia Patient Disposition: Admitted As Inpatient Discharge Instructions Interventions: ED Discharge Assessment Last Done: 04/20/24 17:58
[2024-04-20 14:28] LABS: Basophils # (auto) 0.05 K/uL (0.00-0.20); Basophils % (auto) 0.3 %; Eosinophils % (auto) 1.2 %; Hematocrit (blood only) 39.5 % (37.0-47.0); Immature Granulocytes # (auto) 0.11 K/uL (0.01-0.20); Immature Granulocytes % (auto) 0.7 %; Lymphocytes # (auto) 0.95 K/uL (1.20-3.40); Lymphocytes % (auto) 5.7 %; Mean Corpuscular Hemoglobin 27.2 pg (25.0-34.0); Mean Corpuscular Hgb Conc 32.9 g/dL (32.0-36.0); Mean Corpuscular Volume 82.6 fL (80.0-100.0); Mean Platelet Volume 10.8 fL (9.4-12.4); Monocytes # (auto) 0.68 K/uL (0.11-0.59); Monocytes % (auto) 4.1 %; Neutrophils # (auto) 14.67 K/uL (1.40-6.50); Platelet Count 106 K/uL (130-400); RDW Coefficient of Variation 15.1 % (11.5-14.5); RDW Standard Deviation 45.4 fL (36.4-46.3); Red Blood Count 4.78 M/uL (4.20-5.40); White Blood Count 16.66 K/ul (4.8-10.8)
--- NOTE | 2024-04-20 14:31 | XRay Report ---
XR chest 1V portable CLINICAL HISTORY: cough, hypoxia TECHNIQUE: Single frontal radiograph of the chest was obtained. Comparison: Comparison is made to chest radiograph 03/29/2024 FINDINGS: Median sternotomy wires are unchanged. Cardiomegaly is noted. Elevation of the right hemidiaphragm is seen. Faint airspace opacities are in the bilateral perihilar region. No evidence of pleural effusio n or pneumothorax. IMPRESSION: Faint airspace opacities may reflect infectious/inflammatory process. ACT 112: Negative or not required by law. Electronically signed by: Joel Cuellar M.D. 04/20/2024 2:30 PM
[2024-04-20 14:32] LABS: Albumin Globulin Ratio 1.3 (0.9-2); Albumin Level 3.7 gm/dl (3.4-5.0); BUN Creatinine Ratio 9.4 (10-20); Bilirubin,Total 0.8 mg/dl (0.2-1.0); Calcium 9.1 mg/dl (8.6-10.3); Creatinine Clr Calc Pharmacy 51.2 ml/min; Globulin 2.8 gm/dl (2.5-4.0); Magnesium 1.5 mg/dl (1.7-2.4); Potassium 3.7 mmol/L (3.5-5.1); Total Protein 6.5 gm/dl (6.0-8.3)
[2024-04-20 14:37] LABS: Troponin I High Sensitivity 15.8 pg/ml (0-14)
[2024-04-20] MEDS: MAGNESIUM SULFATE / D5W 1 GM/100 ML BAG IV STA ×2 (15:08→17:02)
[2024-04-20 15:26] LABS: Influenza A virus by PCR Negative (Neg); Influenza B virus by PCR Negative (Neg); RSV by PCR Negative (Neg); SARS CoV2 RNA(COVID-19) Ceph NEGATIVE (Negative)
[2024-04-20 15:54] LABS: Base Excess VBG 3.1 mEq/L; HCO3 VBG 30 mmol/L; Oxygen Saturation VBG 90.4 %; PCO2 VBG 51 mmHg (38-50); PO2 VBG 59 mmHg; pH VBG 7.37 (7.36-7.41)
--- NOTE | 2024-04-20 16:27 | Electrocardiogram Report ---
Test Reason : Blood Pressure : */* mmHG Vent. 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 lead placement vs. LVH Abnormal ECG When compared with ECG of 29-Mar-2024 13:28, No significant change Confirmed by Ramon Mccarthy ([id number]) on 04/20/2024 4:26:42 PM Referred By: Confirmed By: Ramon Mccarthy
--- NOTE | 2024-04-20 16:35 | History & Physical Report ---
Date of Service April 20, 2024 Assessment & Plan (1) Altered mental status: (2) Acute hypoxic respiratory failure: Plan Angelina Ballard is a 73y/o F with PMHx significant for dyslipidemia, hypothyroidism, DM type II [on long-term insulin therapy], diabetic neuropathy, diabetic gastroparesis, CKD stage III, COPD, HTN, chronic diastolic congestive heart failure, moderate aortic stenosis, CAD, chronic liver disease and cirrhosis, portal hypertensive gastropathy, GERD, GONZALEZ/fatty liver, urinary incontinence [suprapubic catheter in place], Ylnnhqp-Otwfv-Slwzu disease and bipolar disorder who [place] [facility] [place] to SOB and generalized weakness. Altered Mental Status (AMS): It was difficult to obtain much of a history from her due to her mental status and waxing/waning attention span. Her daughter, Carolyn, mentions that the she did not even recognize her this morning and was calling her by the wrong name. Low suspicion for hepatic encephalopathy given that her ammonia level is WNL at 33. Head CT negative. Delirium precautions. Acute Hypoxic Respiratory Failure, C/F Pneumonia: Patient was notably hypoxic at 88% SpO2 on room air upon arrival to the ED. She was placed on 2L via nasal cannula with improvement to her O2 sat % into the mid to upper 90s. S/p 6mg IV dexamethasone in the ED. Leukocytosis noted with a WBC of 16k. VBG without evidence of respiratory acidosis. Procalcitonin negative. Biofire negative. CXR showed faint airspace opacities in the bilateral perihilar regions which may reflect an infectious/inflammatory process. Chest CT pending to rule out possible pneumonia. She was started on po doxycycline + IV Rocephin in the ED - will continue for now. MRSA screen pending. Starting patient on 40mg IV Solu-Medrol daily for now. Pulmonary toilet with scheduled nebs, incentive spirometry and flutter valve. Wean off oxygen as tolerated. Elevated Troponin Level: Troponin 15.8 on presentation --> Likely reactive in setting of acute hypoxic respiratory failure. Will trend troponin Q6H. Initial EKG without any overt ischemic changes. EKG with chest pain as needed. Hypomagnesemia: Mag 1.5 on presentation. Initially repleted with 1gm IV mag x 2 bags. Will start her on oral magnesium supplement in the AM. Monitor her mag level closely and replete PRN. Urinary Incontinence, Suprapubic Catheter POA: Patient follows closely with [facility], Dr. Alfredo Panda. She recently had her suprapubic catheter exchanged on 04/08/2024. UA without evidence of bacteria. Continue home oxybutynin and Flomax. Chronic Liver Disease and Cirrhosis, GONZALEZ: Stable, no evidence of acute encephalopathy. Ammonia 33 as per above. Continue home lactulose and Xifaxan. Hwwmdgz-Ibtth-Gtukh Disease: Has foot drop at baseline, wears BLE braces. DM Type II: Hold home agents, basal/bolus insulin regimen while inpatient. BSG checks ACHS. Hgb A1c was 6.0% on 03/03/2024. Glycemic pharmacy consulted. Chronic Diastolic Congestive Heart Failure, HTN & CAD: Most recent echocardiogram performed 03/03/2024 --> normal LV wall thickness, normal LV wall motion, normal LV systolic function, LVEF of 55 to 60%, moderately calcified aortic valve, mild aortic stenosis and mild aortic regurgitation. Continue home BP medications, ASA and diuretics. Other Chronic Medical Conditions: Hypothyroidism, diabetic neuropathy, COPD, GERD, bipolar disorder --> Can continue home meds for these specific conditions. DVT Prophylaxis: SQ Heparin Code Status: FULL CODE PCP: Brian Domínguez MD Disposition: Admit to Med/Surg + Telemetry Patient seen in collaboration with Dr. Fitch. Please see addendum. I spent a total of 65 minutes coordinating, documenting, and providing care for this patient excluding time spent in the performance of separately billed services. This included personally reviewing all current laboratories and imaging studies, medical reconciliation, outpatient chart review and discussion with specialists. This chart was completed in part utilizing Speech Voice Recognition Software. Grammatical errors, random word insertions, pronoun errors, and incomplete sentences are an occasional consequence of this system due to software limitations, ambient noise, and hardware issues. Any formal questions or concerns about the content, text, or information contained within the body of this dictation should be directly addressed to the provider for clarification. History of Present Illness Chief Complaint: SOB/Dyspnea & Generalized Weakness Primary Care Provider: Brian Domínguez MD Angelina Ballard is a 73y/o F with PMHx significant for dyslipidemia, hypothyroidism, DM type II [on long-term insulin therapy], diabetic neuropathy, diabetic gastroparesis, CKD stage III, COPD, HTN, chronic diastolic congestive heart failure, moderate aortic stenosis, CAD, chronic liver disease and cirrhosis, portal hypertensive gastropathy, GERD, GONZALEZ/fatty liver, urinary incontinence [suprapubic catheter in place], Aisygaj-Ekcbp-Vmned disease and bipolar disorder who presented to the ED via EMS from [facility] [place] for evaluation secondary to SOB and generalized weakness. History obtained from patient and associated chart review. Patient was very lethargic during our conversation, however she did arouse to loud verbal stimuli. Patient endorses that she has had a productive cough and that she feels "confused." Denies any chest pain. It was difficult to obtain much of a history from her due to her mental status and waxing/waning attention span. I was however able to speak with her daughter, Carolyn, over the phone. She reports that the patient has been feeling increasingly tired and worn down over the past few days. When she went to visit her this morning, the patient was found to have a fever of 100.8F and appeared rather shaky. Carolyn reports that she did COVID test her at home 2 days ago and it was positive. She mentions that the patient did not even recognize her this morning and was calling her by the georgei cherelle name. She mentions that her oxygen saturation was around 87% when she took it this morning prior to calling EMS. Carolyn does report that she has been wheezing quite a bit and has been giving her albuterol nebulizer treatments more frequently recently. Patient was not on oxygen prior to arrival. Patient was notably hypoxic at 88% SpO2 on room air upon arrival to the ED. She was placed on 2L via nasal cannula with improvement to her O2 saturation % into the mid to upper 90s. Biofire negative. CXR shows faint airspace opacities in the bilateral perihilar region which may reflect an infectious/inflammatory process. Chest CT pending to assess for possible pneumonia. Allergies Allergy/AdvReac Type Severity Reaction Status Date / Time propoxyphene Allergy Intermediate Rash Verified 05/09/23 13:18 fentanyl AdvReac Intermediate PANIC Verified 05/09/23 13:18 WANTS TO RUN AND AGGRESSIVE methocarbamol AdvReac Intermediate DELERIUM Verified 05/09/23 13:18 zolpidem AdvReac Intermediate confusion Verified 05/09/23 13:18 Home Medications Medication Instructions Recorded Confirmed Type albuterol sulfate 90 mcg/actuation 2 inh inhalation Q6 PRN Shortness 02/07/23 04/20/24 History aerosol inhaler Of Breath Or Wheezing aripiprazole 2 mg tablet 2 mg PO QAM 02/07/23 04/20/24 History atorvastatin 40 mg tablet 40 mg PO QAM 02/07/23 04/20/24 History clonazepam 0.5 mg tablet 0.5 mg PO TID 02/07/23 04/20/24 History famotidine 20 mg tablet 40 mg PO QAM 02/07/23 04/20/24 History fluticasone propionate 50 2 spray intranasal DAILY 02/07/23 04/20/24 History mcg/actuation nasal spray,suspension (Flonase Allergy Relief) gabapentin 300 mg capsule 300 mg PO BID 02/07/23 04/20/24 History lamotrigine 100 mg tablet 100 mg PO QAM 02/07/23 04/20/24 History (Lamictal) lamotrigine 25 mg tablet (Lamictal) 25 mg PO QAM 02/07/23 04/20/24 History lamotrigine 25 mg tablet (Lamictal) 50 mg PO HS 02/07/23 04/20/24 History levothyroxine 88 mcg tablet 88 mcg PO QAM 02/07/23 04/20/24 History montelukast 10 mg tablet 10 mg PO DAILY 02/07/23 04/20/24 History nitroglycerin 0.4 mg sublingual 0.4 mg sublingual DIRECTED PRN 02/07/23 04/20/24 History tablet (Nitrostat) Chest Pain pantoprazole 40 mg tablet,delayed 40 mg PO AMPM 02/07/23 04/20/24 History release potassium chloride 20 mEq 20 meq PO QAM PRN when taking 02/07/23 04/20/24 History tablet,extended additional torsemide release(part/cryst) (Klor-Con M) rifaximin 550 mg tablet (Xifaxan) 550 mg PO BID 02/07/23 04/20/24 History tamsulosin 0.4 mg capsule 0.4 mg PO QAM 02/07/23 04/20/24 History torsemide 20 mg tablet 20 mg PO QAM 02/07/23 04/20/24 History trazodone 50 mg tablet 100 mg PO HS 02/07/23 04/20/24 History venlafaxine 150 mg 150 mg PO QAM 02/07/23 04/20/24 History capsule,extended release 24 hr venlafaxine 75 mg tablet,extended 75 mg PO QAM 02/07/23 04/20/24 History release 24 hr insulin glargine 100 unit/mL 35 unit subcut BID 05/09/23 04/20/24 History subcutaneous solution (Lantus U-100 Insulin) ascorbic acid (vitamin C) 500 mg 500 mg PO AMHS 05/12/23 04/20/24 History tablet (Vitamin C) aspirin 81 mg tablet,delayed 81 mg PO QAM 05/12/23 04/20/24 History release budesonide-formoterol HFA 160 2 puff inhalation AMHS 05/12/23 04/20/24 History mcg-4.5 mcg/actuation aerosol inhaler (Symbicort) dicyclomine 10 mg capsule 10 mg PO QID PRN Abdominal Pain 05/12/23 04/20/24 History metformin 500 mg tablet,extended 500 mg PO QDD 05/12/23 04/20/24 History release 24 hr nystatin 100,000 unit/gram topical 1 applic topical TID 05/12/23 04/20/24 History powder (Nyamy) ondansetron HCl 8 mg tablet 8 mg PO Q8 PRN Nausea 05/12/23 04/20/24 History oxybutynin chloride 10 mg 10 mg PO QAM 05/12/23 04/20/24 History tablet,extended release 24 hr spironolactone 50 mg tablet 50 mg PO AMHS 05/12/23 04/20/24 History lactulose 10 gram/15 mL oral 45 ml PO BID 03/02/24 04/20/24 History solution semaglutide 2 mg/dose (8 mg/3 mL) 2 mg subcut .WEEKLY 03/02/24 04/20/24 History subcutaneous pen injector (Ozempic) calcium 600 mg (as 1 tab PO DAILY #60 tabs 03/05/24 04/20/24 Rx carbonate)-vitamin D3 10 mcg (400 unit) tablet (Calcium 600 + D(3)) metoprolol succinate 25 mg 25 mg PO BID #60 tabs 03/05/24 04/20/24 Rx tablet,extended release 24 hr Past Med/Surg History Problem List Acute hypoxic respiratory failure Generalized weakness (Acute) (HFpEF) heart failure with preserved ejection fraction Aortic stenosis ASCVD (arteriosclerotic cardiovascular disease) Hypomagnesemia (Acute) Hyponatremia (Acute) Acute dehydration (Acute) Elevated troponin (Acute) Acute UTI (Acute) SVT (supraventricular tachycardia) (Acute) SVT (supraventricular tachycardia) Non-ST elevation ME (NSTEMI) (Acute) Acute confusion (Acute) Fracture of femur, distal, left, closed Encephalopathy (Acute) Non-ST elevation ME (NSTEMI) (Acute) Acute hyponatremia (Acute) Hypocalcemia (Acute) Postoperative anemia Sepsis associated hypotension Edema leg Chronic heart failure with preserved ejection fraction CAD (coronary artery disease), [place] coronary artery Preop cardiovascular exam Abdominal distension Femoral distal fracture (Acute) Fall (Acute) Abnormal ankle brachial index Diabetic foot ulcer DVT prophylaxis UTI (urinary tract infection) (Acute) Failure of outpatient treatment (Acute) Flank pain (Acute) Urinary tract infection due to ESBL Klebsiella Hyponatremia Encounter for pre-operative examination Pyelonephritis (Acute) Acute UTI (Acute) Weakness (Acute) Pneumonia (Acute) Confusion (Acute) Encounter for rehabilitation evaluation Fever Cough CAP (community acquired pneumonia) Elevated troponin Hypomagnesemia Sepsis (Acute) Pneumonia (Acute) Fever (Acute) Hypoxia (Acute) Cirrhosis of liver not due to alcohol Demand ischemia Unstable angina Chest pain (Acute) Blood glucose elevated (Acute) Discharge planning issues Altered mental status Fall (Acute) CHI (closed head injury) (Acute) Weakness (Acute) Abdominal pain (Acute) Candidal UTI (urinary tract infection) H/O urinary retention COVID-19 (Acute) Fall (Acute) Ambulatory dysfunction Recurrent falls Ambulatory dysfunction (Acute) 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 (Acute) Closed hip fracture (Acute) Hip fracture, left S/P hip hemiarthroplasty Acute on chronic diastolic heart failure with preserved ejection fraction Infection due to ESBL-producing Escherichia coli Acute blood loss anemia Elevated troponin (Acute) Encephalopathy Left hip pain Left hip hemiarthroplasty 02/05/2022 Chronic low back pain Encephalopathy (Acute) d/c from [facility] 09/20/19 (hepatic encephalopathy) Chronic pain syndrome S/P CABG x 1 (Chronic) 2010 - single vessel S/P CARLOS (total abdominal hysterectomy) (Chronic) Hx of cholecystectomy (Chronic) History of back surgery (Chronic) sacral area History of appendectomy (Chronic) History of total right knee replacement (Chronic) Anxiety (Chronic) Bipolar disorder (Chronic) Veuvymm-Hnqyr-Jzgkx disease (Chronic) follows w/ Dr. Lemus LEG WEAKNESS CURRENT PT/OT FOR - BRACES B/L LEGS Gastroparesis (Chronic) Portal hypertensive gastropathy (Chronic) GONZALEZ (nonalcoholic steatohepatitis) (Chronic) Moderate aortic stenosis (Chronic) Chronic diastolic CHF (congestive heart failure) (Chronic) Hypertension (Chronic) CAD (coronary artery disease) (Chronic) History of multiple PCI's to the RCA with subsequent CABG x1 in 2010 x 1 vessel Most recent cardiac testing-negative DSE in December 2017 Follows w/ Dr. Blackwell and Dr. Lucas DM type 2 (diabetes mellitus, type 2) (Chronic) IDDM Hypothyroidism (Chronic) Dyslipidemia (Chronic) Medical History Cardiac arrest pt states she was told she went into cardiac arrest during her hip surgery in 02/2022 at [facility] and was "revived". no other details were given. Palpitations occasionally -- pt states since her metoprolol has been decreased. Cough started about 8 months ago s/p covid-19 virus -- currently treating with augmentin PO bid and prednisone. prednisone to end 05/27/22 and abx to finish on 06/01/22 Hx of fall pt. fell in the bathroom at home, pt. wasn't aware of what happen but was told this by her family 02/05/2022 History of anesthesia reaction REMOTE HX, SIDE EFFECTS : ANXIETY AND SEVERE N/V History of COVID-19 may or june 2021, has cough since. SOB (shortness of breath) SINCE COVID -8 MON AGO, SOB, COUGH...NO DX...HAS VISIT WITH PULM UPCOMING TO EVALUATE Urinary incontinence UTI (urinary tract infection) FREQUENT/PREVENTATIVE ABX'S CURRENTLY MOST RECENT UTI JANUARY 04 - ABX COMPLETE - ON CURRENT PROPHYLACTIC TX Irregular heart beat follows Dr. 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 Spondylosis Osteoarthritis GERD (gastroesophageal reflux disease) Depression Surgical History History of left hip replacement 02/05/2022 History of cataract surgery RT History of esophagogastroduodenoscopy (EGD) History of colonoscopy History of heart artery stent 2 yrs ago @ [facility] > 6 or 7 stents > follows Dr. Lucas History of cardiac cath multiple - most recent - 2 years ago @ [facility] Family History Father Coronary heart disease Brother Coronary heart disease Father No problems noted. Mother No problems noted. Other No family history of adverse response to anesthesia Social History Smoking Status: Never smoker Tobacco Type: Cigarettes Second Hand Exposure: Yes; Do You Dip or Chew Tobacco: No; Hx Alcohol Use: No Hx Substance Use: No Preferred Language: Togolese Communication Ability: Effective Visual Impairment: Partially Limited Hearing Ability: Hard of Hearing Access Clerk Required: No Beliefs That Will Affect Care: Jew Jew Beliefs: Jehovahs witness marital status: / Current Living Situation: Alone Current Living Situation Comment: alone with 24hr caregivers How many Children do You have: 3 Feels Safe at Home: Yes Diet: low carbohydrate and low salt caffeine: No Assistive Devices: Walker and Wheelchair Review of Systems Review of Systems: At least ten systems reviewed and negative, except as noted in the HPI. Physical Exam Physical Exam: General: WD/WN, vitals as above, NAD, sitting up in bed, A+O to situation with loud verbal stimuli and frequent redirection. HEENT: Normocephalic, atraumatic. PERRL, conjunctivae normal, anicteric sclerae. External ear and nose normal, oropharynx normal. Respiratory: Normal respiratory effort, lung sounds decreased bilaterally, some mild wheezing bilaterally, rales, rhonchi. No accessory muscle use. Cardiovascular: Regular rate, rhythm, no murmur, normal peripheral pulses, trace BLE edema. Vessels: No JVD. Abdomen/GI: Normal bowel sounds, soft, nontender, no hepatosplenomegaly. : Suprapubic catheter intact and draining clear, yellow urine without issue. Extremities/Musculoskeletal: No cyanosis or clubbing, extremities motor strength intact, BLE in braces d/t foot drop. Neurologic: EOMI, no focal deficits, CN's II-XI not formally tested but appear grossly intact bilaterally. Skin: No rashes, normal color, warm/dry. Results & Data Results & Data Vital Signs (Past 12 Hours) Vital Signs Temp Pulse Pulse Resp BP BP Pulse Ox 04/20/24 15:37 37.7 C H 04/20/24 15:30 73 22 129/58 L 95 04/20/24 14:07 96 H 04/20/24 13:17 92 04/20/24 13:10 38.6 C H 94 H 18 111/69 87 L 04/20/24 13:10 38.6 C H 94 H 19 111/69 87 L O2 Del Method O2 Flow Rate 04/20/24 15:37 04/20/24 15:30 Nasal Cannula 2 04/20/24 14:07 04/20/24 13:17 Nasal Cannula 2 04/20/24 13:10 Room Air 04/20/24 13:10 Room Air Laboratory Results Short CBC 04/20/24 Range/Units 13:10 WBC 16.66 H (4.8-10.8) K/ul Hgb 13.0 (12.0-16.0) g/dl Hct 39.5 (37.0-47.0) % Plt Count 106 L (130-400) K/uL BMP 04/20/24 13:10 Sodium 133 L Potassium 3.7 Chloride 98 Carbon Dioxide 27 BUN 11 Creatinine 1.17 Glucose 127 H Calcium 9.1 Liver Function 04/20/24 Range/Units 13:10 Total Bilirubin 0.8 (0.2-1.0) mg/dl AST 16 (13-39) U/L ALT 11 (7-52) U/L Alkaline Phosphatase 107 H (34-104) U/L Albumin 3.7 (3.4-5.0) gm/dl Diagnostic Findings Chest X-Ray 04/20/24 13:53 XR chest 1V portable CLINICAL HISTORY: cough, hypoxia TECHNIQUE: Single frontal radiograph of the chest was obtained. Comparison: Comparison is made to chest radiograph 03/29/2024 FINDINGS: Median sternotomy wires are unchanged. Cardiomegaly is noted. Elevation of the right hemidiaphragm is seen. Faint airspace opacities are in the bilateral perihilar region. No evidence of pleural effusion or pneumothorax. IMPRESSION: Faint airspace opacities may reflect infectious/inflammatory process. ACT 112: Negative or not required by law. Electronically signed by: Joel Cuellar M.D. 04/20/2024 2:30 PM Medications Administered Discontinued Medications Dexamethasone Sodium Phosphate (DexamethasonePf 10 Mg/Ml Vial) 6 mg IV NOW ONE Stop: 04/20/24 13:54 Last Admin: 04/20/24 14:02 Dose: 6 mg Documented By: ANAI Acetaminophen (Ofirmev) 1,000 mg in 100 mls @ 400 mls/hr IV NOW STA Stop: 04/20/24 14:07 Last Infusion: 04/20/24 15:00 Dose: Infused Documented By: Admin: 04/20/24 14:02 Dose: 400 mls/hr Documented By: ANAI Magnesium Sulfate/Dextrose (Magnesium Sulfate / D5w) 1 gm in 100 mls @ 100 mls/hr IV NOW STA Stop: 04/20/24 15:33 Last Infusion: 04/20/24 16:15 Dose: Infused Documented By: Admin: 04/20/24 15:08 Dose: 100 mls/hr Documented By: Code Status & VTE Plan Code Status FULL CODE Supervising Physician Co-Signing Physician Notes Chart and data reviewed. Pt seen in the ED. Pt can provide little history. I agree with the ZITA assessment and plan. A total of 20 minutes spent in care coordination, review of data and care plan. (1) Altered mental status Altered mental status type: unspecified Qualified Code(s): R41.82 - Altered mental status, unspecified
[2024-04-20 16:57] LABS: Adenovirus PCR Not Detected (NotDetected); Bordetella parapertussis PCR Not Detected (NotDetected); Bordetella pertussis PCR Not Detected (NotDetected); Chlamydia pneumoniae PCR Not Detected (NotDetected); Coronavirus 229E PCR Not Detected (NotDetected); Coronavirus CoV-2 (COVID19)PCR Not Detected (NotDetected); Coronavirus HKU1 PCR Not Detected (NotDetected); Coronavirus NL63 PCR Not Detected (NotDetected); Coronavirus OC43PCR Not Detected (NotDetected); Human Metapneumovirus PCR Not Detected (NotDetected); Influenza A PCR Not Detected (NotDetected); Influenza B PCR Not Detected (NotDetected); Mycoplasma pneumoniae PCR Not Detected (NotDetected); Parainfluenza Virus 1 PCR Not Detected (NotDetected); Parainfluenza Virus 2 PCR Not Detected (NotDetected); Parainfluenza Virus 3 PCR Not Detected (NotDetected); Parainfluenza Virus 4 PCR Not Detected (NotDetected); Respiratory Syncytial VirusPCR Not Detected (NotDetected); Rhinovirus/Enterovirus PCR Not Detected (NotDetected)
[2024-04-20] MEDS: DOXYCYCLINE HYCLATE 100 MG CAP PO STA (17:40)
[2024-04-20] MEDS ORDERED: ONDANSETRON INJ 2 MG/ML 2 ML VIAL IV PRN (18:32)
[2024-04-20] MEDS ORDERED: POLYETHYLENE (MIRALAX) 17 GM PACK PO PRN (18:32)
[2024-04-20] MEDS ORDERED: CARBOHYDRATES FOR HYPOGLYCEMIA PO PRN (18:32)
[2024-04-20] MEDS ORDERED: GLUCOSE 40% GEL 15 GM TUBE PO PRN (18:32)
[2024-04-20] MEDS ORDERED: PHARMACY GLYCEMIC MGMT CONSULT PRN (18:32)
[2024-04-20] MEDS ORDERED: GLUCOSE 10 TAB/TUBE PO PRN (18:32)
[2024-04-20] MEDS ORDERED: DEXTROSE 50% 50 ML SYRINGE IV PRN (18:32)
[2024-04-20] MEDS ORDERED: GLUCAGON FOR INJ 1 MG VIAL SQ PRN (18:32)
[2024-04-20] MEDS: cefTRIAXone SODIUM 2,000 MG/50 ML BAG IV STA (18:34)
[2024-04-20] MEDS ORDERED: POTASSIUM CHLORIDE CRTAB 20 MEQ TABCR PO PRN (18:44)
--- NOTE | 2024-04-20 18:44 | CT Scan Report ---
CT SCAN OF THE BRAIN WITHOUT IV CONTRAST CLINICAL HISTORY: Change in mental status. Lethargy. COMPARISON STUDY: CT of the brain dated 05/12/2023. TECHNIQUE: Unenhanced axial CT scan of the brain is performed from the vertex to the skull base. A do se lowering technique was utilized adhering to the principles of ALARA. FINDINGS: Brain parenchyma: There is age-related involutional change noting mild to moderate subcortical and pe riventricular microangiopathic disease. There is no hemorrhage, mass effect, or evidence of acute ter ritorial ischemia by CT criteria. There is a chronic lacunar infarct noted in the right thalamus. Gra y-white matter differentiation is preserved. No extra-axial fluid collection is seen. Ventricles, sulci, cisterns: Prominent secondary to involutional change. Intracranial vasculature: There is atherosclerotic calcification of the cavernous carotid and vertebr al artery. Calvarium: Unremarkable. Sinuses and mastoids: The visualized paranasal sinuses are clear. The mastoid air cells are well pneu matized. Orbits: The bony orbits are grossly intact. There are bilateral ocular lens implants. IMPRESSION: There is no hemorrhage, mass effect, or evidence of acute territorial ischemia by CT cande raymundo. ACT 112: Negative or not required by law. Electronically signed by: Berto Snow M.D. 04/20/2024 6:43 PM
[2024-04-20 18:46] LABS: Appearance Urine Clear (Clear); Bacteria Urine Automated None Seen (None Seen); Bilirubin Urine Negative (Negative); Blood Urine 2+ (Negative); Cast Urine Automated >20 /lpf (0-2); Color Urine Yellow; Epithelial Cell Urine Auto 0-2 /hpf (0-2); Glucose Urine UA Negative (Negative); Ketones Urine Negative (Negative); Leukocyte Esterase Urine 1+ (Negative); Nitrite Urine Negative (Negative); Protein Urine Negative (Negative); Urobilinogen Urine Negative (Negative); pH Urine 5.5 (4.5-7.5)
--- NOTE | 2024-04-20 19:23 | CT Scan Report ---
Exam(s): CT CHEST Without Contrast EXAM: CT Chest Without Intravenous Contrast CLINICAL HISTORY: Reason for exam: CXR c/f PNA. TECHNIQUE: Axial computed tomography images of the chest without intravenous contrast. CTDI is 37.69 mGy and DLP is 624.41 mGy-cm. Automated exposure control was utilized for the study. A dose lowering technique was utilized adhering to the principles of ALARA. COMPARISON: No relevant prior studies available. FINDINGS: Lungs: Subsegmental atelectasis in both lower lobes. No consolidation or mass. Possible small region of tree-in-bud infiltrate in the posterior right upper lobe (series 6, image 21), potentially pneumonitis/pneumonia. Pleural space: Unremarkable. No pneumothorax. No significant effusion. Heart: Previous sternotomy. Coronary artery atherosclerosis. No cardiomegaly or pericardial effusion. Aortic valvular calcification. Bones/joints: Osteopenia. No acute fracture or dislocation. Mild chronic T1 superior endplate compression fracture. Degenerative changes of the glenoid will joints, advanced on the right side. Soft tissues: Unremarkable. Vasculature: Thoracic aortic atherosclerosis without aneurysm. Lymph nodes: Unremarkable. No enlarged lymph nodes. Gallbladder and bile ducts: Cholecystectomy. Spleen: Splenomegaly measuring 16 cm. IMPRESSION: Possible small region of tree-in-bud infiltrate in the posterior right upper lobe (series 6, image 21), potentially pneumonitis/pneumonia. Electronically signed by: Denny Lim M.D. 04/20/24 19:22 PM
[2024-04-20] MEDS: cefTRIAXone SODIUM 2,000 MG/50 ML BAG IV SCH (19:29)
[2024-04-20] MEDS: ALBUT/IPRATROP 3MG/0.5MG NEB 3 ML VIAL NEB SCH (19:36)
[2024-04-20] MEDS: GABAPENTIN 300 MG CAP PO SCH (21:10)
[2024-04-20] MEDS: lamoTRIgine 25 MG TAB PO SCH (21:11)
[2024-04-20] MEDS: PANTOprazole 40 MG TAB PO SCH (21:11)
[2024-04-20] MEDS: METOPROLOL SUCC 25MG EXT REL TAB PO SCH (21:11)
[2024-04-20] MEDS: rifAXIMin 550 MG TABLET PO SCH (21:12)
[2024-04-20] MEDS: LACTULOSE SYRUP 30 GM/45 ML UDP PO SCH (21:12)
[2024-04-20] MEDS: SPIRONOLACTONE 25 MG TAB PO SCH (21:12)
[2024-04-20] MEDS: traZODone HCL 100 MG TAB PO SCH (21:12)
[2024-04-20] MEDS: INSULIN ASPART PER UNIT CHARGE SC SCH (21:13)
[2024-04-20] MEDS: ASCORBIC ACID 500 MG TAB PO SCH (21:13)
[2024-04-20] MEDS: DOXYCYCLINE HYCLATE 100 MG CAP PO SCH (21:13)
[2024-04-20] MEDS: clonazePAM 0.5 MG TAB PO SCH (21:21)
[2024-04-20] MEDS: HEPARIN SOD 5,000 UNIT/0.5 ML VIAL SQ SCH (21:21)
[2024-04-20] MEDS: LANTUS PER UNIT CHARGE SQ SCH ×2 (21:30→21:37)
--- OUTSIDE RECORDS SUMMARY | 2024-04-20 22:04 | External Medical Summary | Summary of Care ---
Author Name Unknown Organization [facility] Address [address] [place] [address] Phone [phone] Care Team Providers Care Continuous Linter Drier Operator Name Role Phone Carmen Sifuentes MD Primary Care Provider [phone]- [phone] Reason for Visit * Reason Comments eRx-Medication Refill Encounter Details Date Type Department Care Team (Late st Contact Info) Description 04/08/2024 Refill [facility] [address] [place] [address] Carmen Sifuentes MD [address] [place] [address] Lumbar spondylosis Allergies Active Allergy Reactions Criticality Noted Date Comments Propoxyphene Hcl Rash Low 10/29/2010 Fentanyl Diarrhea Low 04/26/2010 anxiety Methocarbamol Medium 10/05/2020 Other reaction(s): Delirium Methocarbamol Low 04/15/2007 Zolpidem Low 10/05/2020 Other reaction(s): Confusion documented as of this encounter (statuses as of 04/09/2024) Medications Medication Sig Dispensed Refills Start Date End Date Status venlafaxine XR (EFFEXOR XR) 150 MG [id number]:De pression Take 1 Cap by mouth daily. [...] 11/19/19 18 Active Blood Glucose Monitoring Suppl (EnChroma VERIO) w/Device KIT Use as directed. Use as directed. 1 Kit 11/01/19 19 Active Spacer/Aero-Holdin g Chambers WISAM Use with inhaler. Wheezing/bronchiti s. 1 Device 04/08/20 19 Active Lancet Devices (LumicityTOUCH DELICA LANCING DEV) MISC Use four times [...] bedtime. 360 mL 3 05/28/20 23 Active MEDICAL INSTRUCTIONS Please arrange for as needed [facility] visit for obtaining straight cath urine sample for 06/25/23. 1 Each 1 06/24/20 23 Active Famotidine 40 MG Oral Tablet (Pepcid)Indication s:Gastroesophageal reflux disease with esophagitis without hemorrhage TAKE 1 TABLET BY MOUTH EVERY MORNING 90 Tablet 3 07/19/19 24 Active OneTouch Delica Lancets 33G USE UP TO FOUR TIMES A DAY Dx:E11.4 360 Each 07/30/19 24 Active Vitamin C 500 MG Oral Tablet (Ascorbic Acid)Indications:R ecurrent UTI TAKE 1 TABLET BY MOUTH TWICE DAILY every morning and before bedtime 180 Tablet 3 08/13/19 24 Active PEG 3350 17 GM/SCOOP Oral Powder DISSOLVE ONE HEAPING TABLESPOON IN 8 OZ OF WATER OR JUICE DAILY NEEDED FOR CONSTIPATION. 510 g 5 09/22/19 24 Active Nitroglycerin 0.4 MG Sublingual Tablet Sublingual (Nitrostat)Indicat ions:Chronic coronary artery disease Place 1 Tablet under the tongue every 5 minutes as needed for Pain, Chest. Max dose 3 tablets in 15 minutes 25 Tablet 5 10/16/19 24 Active Additional Information Patient not taking.Reported on 03/22/2024 Nystatin 713346 UNIT/GM External Powder (Nystop)Indication s:Candidal intertrigo Apply topically to affected area 3 times a day. Apply to right breast until rash resolved. 30 g 10/16/19 24 Active Nystatin 499089 UNIT/ML Mouth/Throat Suspension SWISH AND SWALLOW 5ML IN THE MORNING AND 5ML AT NOON AND 5 ML IN THE EVENING AND 5ML BEFORE BEDTIME, FOR THRUSH 240 mL 1 10/16/19 24 Active Vitamin D (Ergocalciferol) 1.25 MG (61958 UT) Oral Capsule (Drisdol)Indicatio ns:Vitamin D deficiency [...] morning and 1 Tablet before bedtime. Active oxyBUTYnin Chloride ER 10 MG Oral [...] day 200 Each 2 12/23/19 24 Active Ozempic (2 MG/DOSE) 8 MG/3ML Subcutaneous Solution Pen-injector (Semaglutide (2 MG/DOSE))Indicatio ns:Type 2 diabetes mellitus with diabetic neuropathy, with long-term current use of insulin (HCC) Inject 2 mg subcutaneous once per week 3 mL 01/01/20 24 Active Xifaxan 550 MG Oral Tablet (rifAXIMin)Indicat ions:GONZALEZ (nonalcoholic steatohepatitis),C hronic liver disease and cirrhosis (HCC),Hepatic encephalopathy (HCC) take 1 tablet by mouth twice daily 60 Tablet 01/26/20 24 Active Ondansetron HCl 8 MG Oral Tablet (Zofran)Indication s:Nausea TAKE 1 TABLET BY MOUTH EVERY 8 HOURS NEEDED FOR NAUSEA 60 Tablet 01/28/20 24 Active Pantoprazole Sodium 40 MG Oral Tablet Delayed Release (Protonix)Indicati ons:Gastroesophage al reflux disease without esophagitis TAKE 1 TABLET BY MOUTH TWICE DAILY every morning and every evening 180 Tablet 02/09/20 24 Active Levothyroxine Sodium 88 MCG Oral Tablet (Levoxyl)Indicatio ns:Hypothyroidism TAKE 1 TABLET BY MOUTH ONCE DAILY AT LEAST 30 MINUTES BEFORE BREAKFAST AND OTHER MEDICATIONS 90 Tablet 03/11/20 24 Active clonazePAM 0.5 MG Oral Tablet (KlonoPIN)Indicati ons:Bipolar I disorder, most recent episode depressed, moderate (HCC) TAKE ONE TABLET BY MOUTH THREE TIMES DAILY 90 Tablet 03/19/20 24 Active OneTouch Verio In Vitro Strip (Glucose Blood)Indications: Type 2 diabetes mellitus with diabetic neuropathy, with long-term current use of insulin (HCC) use to test blood sugar 3 times daily 300 Strip 03/19/20 24 Active Metoprolol Succinate ER 25 MG Oral Tablet Extended Release 24 Hour (toPROL XL)Indications:HTN , goal below 130/80 Take 1 tab by mouth twice per day 180 Tablet 03/22/20 24 Active Calcium Carbonate-Vitamin D 600-10 MG-MCG Oral Tablet Take 1 by mouth per day 90 Tablet 03/22/20 24 Active Spironolactone 50 MG Oral Tablet (Aldactone)Indicat ions:GONZALEZ (nonalcoholic steatohepatitis),P ortal hypertension (HCC),Chronic liver disease and cirrhosis (HCC),Portal hypertensive gastropathy (HCC) TAKE ONE TABLET BY MOUTH IN THE MORNING AND ONE TABLET BEFORE BEDTIME 180 Tablet 03/31/20 24 Active Torsemide 20 MG Oral Tablet (Demadex)Indicatio ns:Atherosclerotic heart disease of [place] coronary artery with other forms of angina pectoris (HCC),Hypertensive heart disease with chronic diastolic congestive heart failure (HCC) TAKE 1 TABLET BY MOUTH EVERY MORNING - may take an additional tablet if needed for swelling 90 Tablet 1 03/31/20 24 Active Venlafaxine HCl 100 MG Oral Tablet (Effexor) 1 Tablet. 03/01/20 24 Active Tamsulosin HCl 0.4 MG Oral Capsule (Flomax) TAKE 1 CAPSULE BY MOUTH EVERY MORNING 90 Capsule 04/08/20 24 Active Gabapentin 300 MG Oral Capsule (Neurontin)Indicat ions:Lumbar spondylosis TAKE 1 CAPSULE BY MOUTH TWICE DAILY 60 Capsule 5 04/09/20 24 Active oxyCODONE-Acetamin ophen 5-325 MG Oral Tablet (Percocet) Take 1 Tablet by mouth every 8 hours as needed for Pain, Severe. 8 Tablet 04/08/20 24 Active Sulfamethoxazole-T rimethoprim 800-160 MG Oral Tablet (Bactrim DS) Take 1 Tablet by mouth in the morning and 1 Tablet before bedtime. 8 Tablet 04/08/20 24 Active Gabapentin 300 MG Oral Capsule (Neurontin)Indicat ions:Lumbar spondylosis TAKE 1 CAPSULE BY MOUTH TWICE DAILY 60 Capsule 5 10/14/19 24 024 Discontinued documented as of this encounter (statuses as of 04/09/2024) Active Problems Problem Noted Date Diagnosed Date Recurrent UTI 03/23/2024 Pelvic pain 03/23/2024 Suprapubic catheter 02/09/2024 Chronic kidney disease, stage [...] rhinitis 11/11/2023 Medical home patient encounter 01/06/2023 Coronary artery disease invo lving [place] coronary artery of [place] heart without angina pectoris 11/15/2021 Last Assessment [...] Secondary Prevention Moderate-High Intensity Statin Additional Comments A1c at goal, continue same Urge incontinence 03/27/2021 detention (current) use of insulin 09/29/2019 Diabetic gastroparesis 04/28/2019 Fatty liver 05/06/2018 Chronic liver disease and cirrhosis 05/06/2018 Last Assessment & Plan: Followed by GI Reports compliance with lactulose. Stable today --spironolactone 50mg daily Moderate aortic stenosis 05/06/2018 Hypertensive heart and kidne y disease with chronic diastolic congestive heart failure and stage 3a chronic kidney disease 05/06/2018 Last Assessment & Plan: "RED FLAG" HF [...] 100 mg BMP Additional Comments: Euvolemic today Anxiety 08/05/2017 MEDICATION USE AGREEMENT 01/17/2015 Overview: [...] 05/04/2004 Overview: Updated due to amp error Uwocljo-Psgda-Iwctw disease 12/31/2002 Last Assessment & Plan: Frequent falls Home PT and OT continue GONZALEZ (nonalcoholic steatohepatitis) documented as of this encounter (statuses as of 04/09/2024) Resolved Problems Problem Noted Date Diagnosed Date [...] is giving this. Pt also to see uro-sizer hand and ID Acute cystitis without hematuria 03/27/2021 07/08/2022 Pelvic pain 03/27/2021 02/03/2024 Type 2 diabetes mellitus wit h diabetic neuropathy 09/07/2018 11/07/2023 Overview: duplicate Mild protein-calorie malnutrition 05/07/2018 04/29/2019 Diabetes mellitus with neuropathy 05/06/2018 09/07/2018 Other cirrhosis of liver 05/06/2018 Atherosclerotic heart diseas e of [place] coronary artery with other forms of angina pectoris 05/06/2018 08/27/2021 Thrombocytopenia 05/06/2018 02/09/2021 Portal hypertension 05/06/2018 08/28/19 19 Hepatic encephalopathy 05/06/201808/27 Portal hypertensive gastropathy 05/06/2018 03/29/2024 Last Assessment & Plan: Followed by GI Endoscopy planned 01/16/22 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/04 Uncontrolled type 1 [...] stenosis 10/31/2010 08/28/2018 Acute coronary syndrome 10/30/201001/04 [employer] Other*[id number] 02/02/2010 04/18/2014 Overview: [facility] Registry, Dr Joel [...] as of this encounter (statuses as of 04/09/2024) Immunizations Name Administration Dates Next Due COVID-19 mRNA, LNP-s, No Pre serve, 2-Dose Series (Moderna) 06/10/2021,08/29/2020,08/01/2020 Pneumococcal Conjugate Vacc, 13 Valent (Prevnar) 02/14/2017 Pneumococcal Polysaccharide PPV23 (Pneumovax) 02/06/2016,06/26/2011,06/04/2006,06/26 Season Influenza, Quad, PF, Adjuvanted, 65+ Yrs, IM (FLUAD) 05/22/2020 Seasonal Influenza Vac., MDV , IM, 0.5 mL (Fluzone) 03/21/2015,04/28/2013,04/09/2012,06/11,03/29/2010,04/10/2009,04/06/2008 ,05/12/2007,06/04/2006 Seasonal Influenza Virus Vac cine, Unspecified Formulation 03/14/2022,04/10/2021,05/22/2020,04/12,05/08/2018,07/16/2017,03/21/2015 ,04/28/2013,04/09/2012,06/11/2011,03/08,04/10/2009,04/06/2008, 7,06/04/2006 Seasonal Influenza, High Dos e, Trivalent, PF, IM (Fluzone HD) 03/22/2024 Seasonal Influenza, PF, 6 M & above, IM , (FluLaval or Fluzone) 04/12/2019,05/08/2018,07/16/2017 Seasonal Influenza, Quadriva lent Hd (Fluzone Hd) 06/17/2023,03/14/2022,04/10/2021 TDAP (age 10 and older)(Boostrix) 06/27/2015 Varicella [...] s 01/20/2024 Does the household have a [facility] source of income? (Household - [...] Telephone Encounter - Carmen Sifuentes MD - 04/09/2024 5:29 PM EDTSigned Prescriptions: Disp Refills Gabapentin 300 MG Oral Capsule (Neurontin) 60 Cap*5 Sig: TAKE 1 CAPSULE BY MOUTH TWICE DAILYAuthorizing Provider: CARMEN SIFUENTES * Telephone Encounter - Radha Jarquin LPN - 04/09/2024 9:53 AM EDTPending Prescriptions: Disp Refills Gabapentin 300 MG Oral Capsule [Pharmacy M*60 Cap*0 Sig: TAKE 1 CAPSULE BY MOUTH TWICE DAILY * Telephone Encounter - Marine Jacob - 04/08/2024 1:44 PM EDTPending Prescriptions: Disp Refills Gabapentin 300 MG Oral Capsule [Pharmacy M*60 Cap*0 Sig: TAKE 1CAPSULE BY MOUTH TWICE DAILY documented in this encounter Plan of Treatment Upcoming Encounters Date Type Department Care Team (Late st Contact Info) Description 04/20/2024 1:30 PM EDT Office Visit Urology, [address] [address] Alfredo Panda MD [address] [place] [address] 04/23/2024 10:30 AM EDT Scheduled Telephone [facility], [facility] [address] [facility] [address] Jesusita Saenz RDN [address] [facility] [place] [address] 05/03/2024 2:00 PM EDT Procedure Only Urology, [facility] [address] [place] [address] Alfredo Panda MD [address] [place] [address] 06/08/2024 6:00 PM EST Office Visit [facility] [address] [place] [phone] Carmen Sifuentes MD [address] [place] [address] 06/23/2024 11:45 AM EST Office Visit Urology, [facility] [address] [facility] [place] [address] Alfredo Panda MD [address] [place] [address] Scheduled Procedures Name Priority Associated Diagnoses Date/Ti [...] 06/05/2021 06/05/2020, , 04/27/2019, Additional history exists CKD PHOS USE SMARTSET 47337 10/24/202310/05, 02/18/2022, 02/17/2022, Additional history exists COVID-19 Vaccine ( season) 2024 06/10/2021, 08/29/2020, 08/01/2020 Colonoscopy 05/20/2024 05/20/2014 Colorectal Cancer Screening 05/20/2024 TSH 06/17/2024 06/17/2023, 05/08, 02/13/2023, Additional history exists GFR 08/21/2024 02/19/2024, 04/1 12/2023, 08/04/2023, Additional history exists HbA1c 08/21/2024 02/19/2024, 06/0 12/2023, 10/17/2023, Additional history exists Diabetic Foot Exam 10/15/2024 10/16/2023, 1 07/22/2019, 02/22/2019, Additional history exists Albumin/Creatinine Ratio 11/03/2024 024, 10/23/2022, 07/17/2022, Additional history exists CKD HGB USE SMARTSET 93722 02/18/202502/18, 02/19/2024, 12/11/2023, Additional history exists O2 ASSESSMENT COMPLETED IN PAST YEAR FOR COPD 04/08/2025 04/08/2024 DTap/Tdap Vaccines (2 - Td or Tdap) 06/27/2025 06/27/2015 Hepatitis C Screening Completed 07/04/2011, 011 Pneumococcal Vaccine: 65+ Years Completed 02/14/2017, 02/06/2016, 06/26/2011, Additional history exists Influenza Vaccine (FLU shot) Completed , 06/17/2023, 03/14/2022, Additional history exists HPV (Gardasil) Vaccine Aged Out No lo nger eligible based on patient's age to complete this topic MENINGOCOCCAL (MENACTRA/MENVEO) Aged Out No longer eligible based on patient's age to complete this topic documented as of this encounter Medical Devices Implanted Type Area Lumber Planer Device Identifier Shelf Expiration Date Model / Serial / Lot Sut Steel 6 M654g - [id number] Implanted:Qty: 3 on 02/15/2011 at OR [facility] N/A: Chest DO NOT USE 01/15/2015 M654G / / [id number] Gaston Curran 225-171 - [id number] Implanted:Qty: 1 on 02/15/2011 at OR [facility] N/A: Chest [employer] 225-241 / / [id number] Sut Steel 6 M654g - [id number] Implanted:Qty: 1 on 02/15/2011 at OR [facility] N/A: Chest DO NOT USE 07/21/2015 M654G / / [id number] documented as of this encounter Visit Diagnoses Diagnosis Lumbar spondylosis Lumbosacral spondylosis without myelopathy documented in this encounter Advance Directives Documents on File Type Date Recorded 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 Question Answer Comments Discussion of Advance Directives occurred with: Patient * Full Code Date Activated Date Inactivated Comments 04/08/2024 2:50 PM 04/08/2024 7:13 PM This order r eflects the patients wishes and were consensually agreed upon. Question Answer Comments Discussion of Advance Directives occurred with: Patient * Full Code Date Activated Date Inactivated Comments 12/31/2023 4:12 [...] Agents on File Name Relationship Healthcare Agent [facility] Communication Carolyn Ballard Adult Child Health Care Agent Care Teams Continuous Linter Drier Operator Relationship Specialty Start Date End Date Carmen Sifuentes MD [address] [place] [address] PCP - General Family Medicine 07/16/17 documented as of this encounter
--- OUTSIDE RECORDS SUMMARY | 2024-04-20 22:04 | External Medical Summary | Summary of Care ---
Author Name Unknown Organization [facility] Address [address] [place] [address] Phone [phone] Care Team Providers Care Corn Shucker Name Role Phone Carmen Sifuentes MD Primary Care Provider [phone]- [phone] Reason for Visit * Reason Comments eRx-Medication Refill Encounter Details Date Type Department Care Team (Late st Contact Info) Description 04/13/2024 Refill [facility] [address] [place] [address] Carmen Sifuentes MD [address] [place] [address] Abdominal pain Allergies Active Allergy Reactions Criticality Noted Date Comments Propoxyphene Hcl Rash Low 10/29/2010 Fentanyl Diarrhea Low 04/26/2010 anxiety Methocarbamol Medium 10/05/2020 Other reaction(s): Delirium Methocarbamol Low 04/15/2007 Zolpidem Low 10/05/2020 Other reaction(s): Confusion documented as of this encounter (statuses as of 04/14/2024) Medications Medication Sig Dispensed Refills Start Date End Date Status venlafaxine XR (EFFEXOR XR) 150 MG [id number]:De pression Take 1 Cap by mouth daily. [...] 11/19/19 18 Active Blood Glucose Monitoring Suppl (SanTásti VERIO) w/Device KIT Use as directed. Use as directed. 1 Kit 11/01/19 19 Active Spacer/Aero-Holdin g Chambers WISAM Use with inhaler. Wheezing/bronchiti s. 1 Device 04/08/20 19 Active Lancet Devices (SlideBatchTOUCH DELICA LANCING DEV) MISC Use four times [...] directed 18 g 3 11/08/19 23 Active Budesonide-Formote rol Fumarate 160-4.5 MCG/ACT [...] Information Patient not taking.Reported on 03/22/2024 Nystatin 939402 UNIT/GM External Powder (Nystop)Indication s:Candidal intertrigo Apply topically to affected area 3 times a day. Apply to right breast until rash resolved. 30 g 10/16/19 24 Active Nystatin 081247 UNIT/ML Mouth/Throat Suspension SWISH AND SWALLOW 5ML IN THE MORNING AND 5ML AT NOON AND 5 ML IN THE EVENING AND 5ML BEFORE BEDTIME, FOR THRUSH 240 mL 1 10/16/19 24 Active Vitamin D (Ergocalciferol) 1.25 MG (60542 UT) Oral Capsule (Drisdol)Indicatio ns:Vitamin D deficiency TAKE 1 CAPSULE BY MOUTH ONCE WEEKLY 12 Capsule 3 11/10/19 24 Active Insulin Glargine Solostar 100 UNIT/ML Subcutaneous Solution Pen-injector (Lantus SoloStar)Indicatio ns:Type 2 diabetes mellitus with stage 3a chronic kidney disease, with long-term current use of insulin ([facility]) Inject 35 units subcutaneously twice per day [...] current use of insulin ([facility]) use to test blood [...] Oral Tablet (Demadex)Indicatio ns:Atherosclerotic heart disease of [place] coronary artery with other forms of angina [...] before bedtime. 8 Tablet 04/08/20 24 Active Dicyclomine HCl 10 MG Oral Capsule (Bentyl)Indication s:Abdominal pain TAKE 1 CAPSULE BY MOUTH FOUR TIMES DAILY NEEDED for abdominal 120 Capsule 04/14/20 24 Active Dicyclomine HCl 10 MG Oral Capsule (Bentyl)Indication s:Abdominal pain TAKE ONE CAPSULE BY MOUTH FOUR TIMES DAILY NEEDED FOR ABDOMINAL PAIN 120 Capsule 3 12/09/19 23 024 Discontinued documented as of this encounter (statuses as of 04/14/2024) Active Problems Problem Noted Date Diagnosed Date [...] encounter 01/06/2023 Coronary artery disease invo lving [place] coronary artery of [place] heart without angina pectoris 11/15/2021 Last Assessment [...] at goal, continue same Urge incontinence 03/27/2021 continuous churn 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 Pt also to see uro-school boat driver and ID Acute cystitis without hematuria 03/27/2021 07/08/2022 Pelvic pain 03/27/2021 02/03/2024 Type 2 diabetes mellitus wit h diabetic neuropathy 09/07/2018 11/07/2023 Overview: duplicate Mild protein-calorie malnutrition 05/07/2018 04/29/2019 Diabetes mellitus with neuropathy 05/06/2018 09/07/2018 Other cirrhosis of liver 05/06/2018 Atherosclerotic heart diseas e of [place] coronary artery with other forms of angina [...] 10/31/2010 08/28/2018 Acute coronary syndrome 10/30/201001/04 [facility] Other*[id number] 02/02/2010 04/18/2014 Overview: [place] [facility], Dr Joel [...] 01/21/2014 continuous churn buttermaker current use of ant icoagulant therapy 06/17/2006 [...] as of this encounter (statuses as of 04/14/2024) Immunizations Name Administration Dates Next Due COVID-19 [...] Telephone Encounter - Carmen Sifuentes MD - 04/14/2024 10:41 PM EDTSigned Prescriptions: Disp Refills Dicyclomine HCl 10 MG Oral Capsule (Bentyl)120 Ca*0 Sig: TAKE 1 CAPSULE BY MOUTH FOUR TIMES DAILY NEEDED for abdominalAuthorizing Provider: CARMEN SIFUENTES--- * Telephone Encounter - Emtizer, Radha, MODEL BUILDER DISPLAY - 04/14/2024 3:20 PM EDTPending Prescriptions: Disp Refills Dicyclomine HCl 10 MG Oral Capsule [Pharma*120 Ca*0 Sig: TAKE 1 CAPSULE BY MOUTH FOUR TIMES DAILY NEEDED for abdominal * Telephone Encounter - Marine Jacob - 04/13/2024 7:45 PM EDTPending Prescriptions: Disp Refills Dicyclomine HCl 10 MG Oral Capsule [Pharma*120 Ca*0 Sig: TAKE 1CAPSULE BY MOUTH FOUR TIMES DAILY NEEDED for abdominal documented in this encounter Plan of Treatment Upcoming Encounters Date Type Department Care Team (Late st Contact Info) Description 04/20/2024 1:30 PM EDT Office Visit Urology, [facility] [address] [facility] [place] [address] Alfredo Panda MD [address] [place] [address] 04/23/2024 10:30 AM EDT Scheduled Telephone [facility] Home, [facility] [address] [facility] [place] [id number] Jesusita Saenz RDN [address] [facility] [place] [id number] 05/03/2024 2:00 PM EDT Procedure Only Urology, [facility] [address] [facility] [place] [address] Alfredo Panda MD [address] [place] [address] 06/08/2024 6:00 PM EST Office Visit [facility] [address] [place] [address] Carmen Sifuentes MD [address], [place] [id number] 06/23/2024 11:45 AM EST Office Visit Urology, [facility] [address] [facility] [place] [address] Alfredo Panda MD [address] [place] [address] Scheduled Procedures Name Priority Associated Diagnoses Date/Ti [...] Additional history exists CKD PHOS USE SMARTSET 18785 10/24/202310/05, 02/18/2022, 02/17/2022, Additional history exists COVID-19 [...] Additional history exists CKD HGB USE SMARTSET 80439 02/18/202502/18, 02/19/2024, 12/11/2023, Additional history exists O2 [...] encounter Medical Devices Implanted Type Area Ophthalmic Lens Inspector Device Identifier Shelf Expiration Date Model / Serial / Lot Sut Bob 6 M654g - [id number] Implanted:Qty: 3 on 02/15/2011 at [place] [facility] N/A: Chest DO NOT USE 01/15/2015 M654G / / [id number] [facility] 225-701 - [id number] Implanted:Qty: 1 on 02/15/2011 at OR [facility] N/A: Chest [employer] 174-804 / / [id number] Sut Steel 6 M654g - [id number] Implanted:Qty: 1 on 02/15/2011 at OR [facility] N/A: Chest DO NOT USE 07/21/2015 M654G / / [id number] documented as of this encounter Visit Diagnoses Diagnosis Abdominal pain Abdominal pain, unspecified site documented in this encounter Advance Directives Documents on File Type Date Recorded 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
--- OUTSIDE RECORDS SUMMARY | 2024-04-20 22:04 | External Medical Summary | Summary of Care ---
Author Name Unknown Organization [facility] Address [address] [place] [address] Phone [phone] Care Team Providers Care Supervisor Housecleaner Name Role Phone Brian Domínguez MD Primary Care Provider [phone] Encounter Details Date Type Department Care Team (Late st Contact Info) Description 04/13/2024 Telephone [facility] [address] [place] [address] Brian Domínguez MD [address] [place] [address] Allergies Active Allergy Reactions Criticality Noted Date Comments Propoxyphene Hcl Rash Low 10/29/2010 Fentanyl Diarrhea Low 04/26/2010 anxiety Methocarbamol Medium 10/05/2020 Other reaction(s): Delirium Methocarbamol Low 04/15/2007 Zolpidem Low 10/05/2020 Other reaction(s): Confusion documented as of this encounter (statuses as of 04/13/2024) Medications Medication Sig Dispensed Refills Start Date End Date Status venlafaxine XR (EFFEXOR XR) 150 MG [id number]:Dep ression Take 1 Cap by mouth daily. [...] Kit 11/18/2017 Active Blood Glucose Monitoring Suppl (NaventUCH VERIO) w/Device KIT Use as directed. Use as directed. 1 Kit 10/31/2018 Active Spacer/Aero-Holding Chambers WISAM Use with inhaler. Wheezing/bronchitis . 1 Device 04/08/2019 Active Lancet Devices (bitHoundTOUCH DELICA LANCING DEV) MISC Use four times [...] before bedtime. 360 mL 3 05/28/2023 Active MEDICAL INSTRUCTIONS Please arrange for as needed Home fpc visit for obtaining straight cath urine sample for 06/25/23. 1 Each 1 06/24/2023 Active Famotidine 40 MG Oral Tablet (Pepcid)Indications :Gastroesophageal reflux disease with esophagitis without hemorrhage TAKE 1 TABLET BY MOUTH EVERY MORNING 90 Tablet 3 07/19/2023 Active OneTouch Delica Lancets 33G USE UP TO FOUR TIMES A DAY Dx:E11.4 360 Each 5 07/30/2023 Active Vitamin C 500 MG Oral Tablet (Ascorbic Acid)Indications:Re current UTI TAKE 1 TABLET BY MOUTH TWICE DAILY every morning and before bedtime 180 Tablet 3 08/13/2023 Active PEG 3350 17 GM/SCOOP Oral Powder DISSOLVE ONE HEAPING TABLESPOON IN 8 OZ OF WATER OR JUICE DAILY NEEDED FOR CONSTIPATION. 510 g 5 09/22/2023 Active Nitroglycerin 0.4 MG Sublingual Tablet Sublingual (Nitrostat)Indicati ons:Chronic coronary artery disease Place 1 Tablet under the tongue every 5 minutes as needed for Pain, Chest. Max dose 3 tablets in 15 minutes 25 Tablet 5 10/16/2023 Active Additional Information Patient not taking.Reported on 03/22/2024 Nystatin 509029 UNIT/GM External Powder (Nystop)Indications :Candidal intertrigo Apply topically to affected area 3 times a day. Apply to right breast until rash resolved. 30 g 10/16/2023 Active Nystatin 018530 UNIT/ML Mouth/Throat Suspension SWISH AND SWALLOW 5ML IN THE MORNING AND 5ML AT NOON AND 5 ML IN THE EVENING AND 5ML BEFORE BEDTIME, FOR THRUSH 240 mL 1 10/16/2023 Active Vitamin D (Ergocalciferol) 1.25 MG (42192 UT) Oral Capsule (Drisdol)Indication s:Vitamin D deficiency [...] a day 200 Each 2 12/23/2023 Active Ozempic (2 MG/DOSE) 8 MG/3ML Subcutaneous Solution Pen-injector (Semaglutide (2 MG/DOSE))Indication s:Type 2 diabetes mellitus with diabetic neuropathy, with long-term current use of insulin (HCC) Inject 2 mg subcutaneous once per week 3 mL 5 01/01/2024 Active Xifaxan 550 MG Oral Tablet (rifAXIMin)Indicati [...] every morning and every evening 180 Tablet 02/09/2024 Active Levothyroxine Sodium 88 MCG Oral Tablet (Levoxyl)Indication s:Hypothyroidism TAKE 1 TABLET BY MOUTH ONCE DAILY AT LEAST 30 MINUTES BEFORE BREAKFAST AND OTHER MEDICATIONS 90 Tablet 03/11/2024 Active clonazePAM 0.5 MG Oral Tablet (KlonoPIN)Indicatio ns:Bipolar I disorder, most recent episode depressed, moderate (HCC) TAKE ONE TABLET BY MOUTH THREE TIMES DAILY 90 Tablet 03/19/2024 Active OneTouch Verio In Vitro Strip (Glucose Blood)Indications:T ype 2 diabetes mellitus with diabetic neuropathy, with long-term current use of insulin ([facility]) use to test blood sugar 3 times daily 300 Strip 03/19/2024 Active Metoprolol Succinate ER 25 MG Oral Tablet Extended Release 24 Hour (toPROL XL)Indications:HTN, goal below 130/80 Take 1 tab by mouth twice per day 180 Tablet 03/22/2024 Active Calcium Carbonate-Vitamin D 600-10 MG-MCG Oral Tablet Take 1 by mouth per day 90 Tablet 03/22/2024 Active Spironolactone 50 MG Oral Tablet (Aldactone)Indicati ons:GONZALEZ (nonalcoholic steatohepatitis),Po rtal hypertension (HCC),Chronic liver disease and cirrhosis (HCC),Portal hypertensive gastropathy (HCC) TAKE ONE TABLET BY MOUTH IN THE MORNING AND ONE TABLET BEFORE BEDTIME 180 Tablet 03/31/2024 Active Torsemide 20 MG Oral Tablet (Demadex)Indication s: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 03/01/2024 Active Tamsulosin HCl 0.4 MG Oral Capsule (Flomax) TAKE 1 CAPSULE BY MOUTH EVERY MORNING 90 Capsule 04/08/2024 Active Gabapentin 300 MG Oral Capsule (Neurontin)Indicati ons:Lumbar spondylosis TAKE 1 CAPSULE BY MOUTH TWICE DAILY 60 Capsule 5 04/09/2024 Active oxyCODONE-Acetamino phen 5-325 MG Oral Tablet (Percocet) Take 1 Tablet by mouth every 8 hours as needed for Pain, Severe. 8 Tablet 04/08/2024 Active Sulfamethoxazole-Tr imethoprim 800-160 MG Oral Tablet (Bactrim DS) Take 1 Tablet by mouth in the morning and 1 Tablet before bedtime. 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 of insulin [...] 05/04/2004 Overview: Updated due to amp error Fdiihoc-Mpydr-Pqxwz disease 12/31/2002 Last Assessment & Plan: Frequent falls Home PT and OT continue GONZALEZ (nonalcoholic steatohepatitis) documented as of this encounter (statuses as of 04/13/2024) Resolved Problems Problem Noted Date Diagnosed Date Resolved Date Chronic obstructive pulmonary disease 10/23/2023 11/19/2023 Overview: Per COPD GOLD Classification Food insecurity 06/16/2023 02/19/2024 Overview: Per [facility] Protocol Transient alteration of awareness 05/12/2023 05/12/2023 Open wound of left heel 03/12/2022 01/08/2022 Last Assessment & Plan: Pressure ulcer -off [...] is giving this. Pt also to see uro-thinner sprayer and ID Acute cystitis without hematuria 03/27/2021 07/08/2022 Pelvic pain 03/27/2021 02/03/2024 Type 2 diabetes mellitus wit h diabetic neuropathy 09/07/2018 11/07/2023 Overview: duplicate Mild protein-calorie malnutrition 05/07/2018 04/29/2019 Diabetes mellitus with neuropathy 05/06/2018 09/07/2018 Other cirrhosis of liver 05/06/2018 Atherosclerotic heart diseas e of lummi coronary artery with other forms of angina [...] stenosis 10/31/2010 08/28/2018 Acute coronary syndrome 10/30/201001/04 [place] [facility] Other*[id number] 02/02/2010 04/18/2014 Overview: [facility], Dr Joel [...] as of this encounter (statuses as of 04/13/2024) Immunizations Name Administration Dates Next Due COVID-19 [...] Miscellaneous Notes * Telephone Encounter - Andie Vu MED ASSIST - 04/13/2024 2:11 PM EDT Received Fax for BFPROVIDERS: Dr. Brian Domínguez ORDER received from [facility] and FAXED documented in this encounter Plan of Treatment Upcoming Encounters Date Type Department Care Team (Late st Contact Info) Description 04/20/2024 1:30 PM EDT Office Visit Urology, [facility] [address] [facility] [place] [address] Alfredo Panda MD [address] [place] [address] 04/23/2024 10:30 AM EDT Scheduled Telephone [facility] [address] [facility] [place] [address] Jesusita Saenz RDN [address] [place] [address] 05/03/2024 2:00 PM EDT Procedure Only U[facility], [facility] [address] [facility] [address] Alfredo Panda MD [address] [place] [address] 06/08/2024 6:00 PM EST Office Visit [facility] [address] [place] [id number] Brian Domínguez MD [address] [place] [address] 06/23/2024 11:45 AM EST Office Visit Urology, [facility] [address] [facility] [place] [address] Alfredo Panda MD [address] [place] [address] Scheduled Procedures Name Priority Associated Diagnoses Date/Ti [...] Additional history exists CKD PHOS USE SMARTSET 35006 10/24/202310/05, 02/18/2022, 02/17/2022, Additional history exists COVID-19 Vaccine ( season) 2024 06/10/2021, 08/29/2020, 08/01/2020 Colonoscopy 05/20/2024 05/20/2014 Colorectal Cancer Screening 05/20/2024 TSH 06/17/2024 06/17/2023, 05/08, 02/13/2023, Additional history exists GFR 08/21/2024 02/19/2024, 0412/2023, 08/04/2023, Additional history exists HbA1c 08/21/2024 02/19/2024, 06/0 12/2023, 10/17/2023, Additional history exists Diabetic Foot Exam 10/15/2024 10/16/2023, 1 07/22/2019, 02/22/2019, Additional history exists Albumin/Creatinine Ratio 11/03/2024 024, 10/23/2022, 07/17/2022, Additional history exists CKD HGB USE SMARTSET 06034 02/18/202502/18, 02/19/2024, 12/11/2023, Additional history exists O2 [...] this encounter Medical Devices Implanted Type Area Shop Steward Device Identifier Shelf Expiration Date Model / Serial / Lot Jenna Rojas 6 M654g - [id number] Implanted:Qty: 3 on 02/15/2011 at OR [facility] N/A: Chest DO NOT USE 01/15/2015 M654G / / [id number] [facility] 225-808 - [id number] Implanted:Qty: 1 on 02/15/2011 at OR [facility] N/A: Chest [employer] 225-241 / / [id number] [employer] 6 M654g - [id number] Implanted:Qty: 1 on 02/15/2011 at OR [facility] N/A: Chest DO NOT USE 07/21/2015 M654G / / [id number] documented as of this encounter Advance Directives Documents on File Type Date Recorded Patient Experimental [employer] Fabricator Expl anation POLST 05/06/2018 POLST * Full [...] Agents on File Name Relationship Healthcare Agent [facility] p Communication Carolyn Ballard Adult Child Health Care Agent Care Teams Supervisor Housecleaner Relationship Specialty Start Date End Date Brian Domínguez MD [address] [facility] [address] PCP - General Family Medicine 07/16/17 documented as of this encounter
--- OUTSIDE RECORDS SUMMARY | 2024-04-20 22:04 | External Medical Summary ---
Author Name Unknown Address Unknown Organization : Laboratory Report Ordering Provider Test Date Status DAIANA SAINI 04/08/2024 19:32:30 Final Observation Date Value Abnormality Reference (Units ) Status Glucose Point of Care 04/08/2024 19:32:30 82 70-120 (mg/dL) Final Performing Location
--- OUTSIDE RECORDS SUMMARY | 2024-04-20 22:04 | External Medical Summary | Summary of Care ---
Author Name Unknown Organization [facility] Address [address] [place] [address] Phone [phone] Care Team Providers Care Direct Marketing Executive Name Role Phone Carmen Sifuentes MD Primary Care Provider [phone]- [phone] Reason for Visit * Auth/Cert Specialty Diagnoses / Procedures Referred By Contac t Referred To Contact Diagnoses Urge incontinence Recurrent UTI Pelvic pain Suprapubic catheter (HCC) Urge incontinence [N39.41] Recurrent UTI [N39.0] Pelvic pain [R10.2] Suprapubic catheter (HCC) [Z93.59] Procedures CYSTOSCOPY BLADDER ASPIRATION BY SUPRAPUBIC CATH CYSTOURETHROSCOPY ASPIRATION OF BLADDER BY INSERTION OF SUPRAPUBIC CATHETER Alfredo Panda MD [address] [place] [address] Referral ID Status Reason Start Date Expiration Date Visits Re quested Visits Authorized [id number] Encounter Details Date Type Department Care Team (Latest Contact Info) Description 04/08/2024 2:46 PM EDT - 04/08/2024 8:47 PM EDT Hospital Encounter OR [facility], Operating Room, [facility] - 4th Floor [address] [place] [address] Alfredo Panda MD [address] [address] [address] Pt Handout (on AVS) Discharge Disposition: Home - Self Care Allergies [...] Status venlafaxine XR (EFFEXOR XR) 150 MG [id number]:De pression Take 1 Cap by mouth daily. With food. 30 Cap 5 09/02/19 17 Active Additional Information Patient taking differently: 225 mgOral Daily(AM),Taking a total of 225 mg, Indications: Takes 225 mg total every morning with food (150 mg tab + 75 mg tab), Reported on 03/03/2023 Blood Glucose Monitoring Suppl ([employer] GLUCOMETER) w/Device KITIndications:Unc ontrolled type 2 diabetes mellitus without complication, without long-term current use of insulin Use as directed. Use as directed once daily 1 Kit 11/19/19 18 Active Blood Glucose Monitoring Suppl (Brighter[employer] VERIO) w/Device KIT Use as directed. Use as directed. 1 Kit 11/01/19 19 Active Spacer/Aero-Holdin g Chambers WISAM Use with inhaler. Wheezing/bronchiti s. 1 Device 04/08/20 19 Active Lancet Devices (QuickPayTOUCH DELICA LANCING DEV) MISC Use four times [...] into each nostril daily. 9.9 mL 1 05/08/20 21 Active Lactulose 10 GM/15ML Oral Solution [...] CONSTIPATION. 510 g 5 09/22/19 24 Active Gabapentin 300 MG Oral Capsule [...] Information Patient not taking.Reported on 03/22/2024 Nystatin 096534 UNIT/GM External Powder (Nystop)Indication s:Candidal intertrigo Apply topically to affected area 3 times a day. Apply to right breast until rash resolved. 30 g 10/16/19 24 Active Nystatin 518587 UNIT/ML Mouth/Throat Suspension SWISH AND SWALLOW 5ML IN THE MORNING AND 5ML AT NOON AND 5 ML IN THE EVENING AND 5ML BEFORE BEDTIME, FOR THRUSH 240 mL 1 10/16/19 24 Active Vitamin D (Ergocalciferol) 1.25 MG (51585 UT) Oral Capsule (Drisdol)Indicatio ns:Vitamin D deficiency [...] TABLET BY MOUTH EVERY MORNING 90 Tablet 12/04/19 24 Active Montelukast Sodium 10 MG [...] MOUTH ONCE DAILY with dinner 90 Tablet 12/23/19 24 Active BD Pen Needle Mini [...] BREAKFAST AND OTHER MEDICATIONS 90 Tablet 1 03/11/20 24 Active clonazePAM 0.5 MG Oral Tablet (KlonoPIN)Indicati ons:Bipolar I disorder, most recent episode depressed, moderate (HCC) TAKE ONE TABLET BY MOUTH THREE TIMES DAILY 90 Tablet 03/19/20 24 Active OneTouch Verio In Vitro Strip (Glucose Blood)Indications: Type 2 diabetes mellitus with diabetic neuropathy, with long-term current use of insulin (HCC) use to test blood sugar 3 times daily 300 Strip 3 03/19/20 24 Active Metoprolol Succinate ER 25 MG Oral Tablet Extended Release 24 Hour (toPROL XL)Indications:HTN , goal below 130/80 Take 1 tab by mouth twice per day 180 Tablet 3 03/22/20 24 Active Calcium Carbonate-Vitamin D 600-10 MG-MCG Oral Tablet Take 1 by mouth per day 90 Tablet 3 03/22/20 24 Active Spironolactone 50 MG Oral Tablet (Aldactone)Indicat ions:GONZALEZ (nonalcoholic steatohepatitis),P ortal hypertension (HCC),Chronic liver disease and cirrhosis (HCC),Portal hypertensive gastropathy (HCC) TAKE ONE TABLET BY MOUTH IN THE MORNING AND ONE TABLET BEFORE BEDTIME 180 Tablet 1 03/31/20 24 Active Torsemide 20 MG Oral Tablet (Demadex)Indicatio ns:Atherosclerotic heart disease of venetie ira coronary artery with other forms of [...] EVERY MORNING 90 Capsule 04/08/20 24 Active oxyCODONE-Acetamin ophen 5-325 MG Oral Tablet (Percocet) Take 1 Tablet by mouth every 8 hours as needed for Pain, Severe. 8 Tablet 04/08/20 24 Active Sulfamethoxazole-T rimethoprim 800-160 MG Oral Tablet (Bactrim DS) Take 1 Tablet by mouth in the morning and 1 Tablet before bedtime. 8 Tablet 04/08/20 24 Active Cefdinir 300 MG Oral Capsule (Omnicef) Take 1 Capsule by mouth in the morning and 1 Capsule before bedtime. 30 Capsule 11/26/19 24 024 Discontinued Cefdinir 300 MG Oral Capsule (Omnicef) Take 1 Capsule by mouth in the morning and 1 Capsule before bedtime. Do all this for 10 days. 20 Capsule 12/24/19 24 024 Discontinued oxyCODONE-Acetamin ophen 5-325 MG Oral Tablet (Percocet) Take 1 Tablet by mouth every 8 hours as needed for Pain, Severe. 8 Tablet 12/31/19 24 024 Discontinued Cefdinir 300 MG Oral Capsule (Omnicef) Take 1 Capsule by mouth in the morning and 1 Capsule before bedtime. 10 Capsule 01/01/20 24 024 Discontinued Tamsulosin HCl 0.4 MG Oral Capsule (Flomax) TAKE 1 CAPSULE BY MOUTH EVERY MORNING 90 Capsule 01/12/20 24 024 Discontinued Cefuroxime Axetil 250 MG Oral Tablet (Ceftin) Take 1 Tablet by mouth in the morning and 1 Tablet before bedtime. 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 and ID Acute cystitis without hematuria 03/27/2021 07/08/2022 Pelvic pain 03/27/2021 02/03/2024 Type 2 diabetes mellitus wit h diabetic neuropathy 09/07/2018 11/07/2023 Overview: duplicate Mild protein-calorie malnutrition 05/07/2018 04/29/2019 Diabetes mellitus with neuropathy 05/06/2018 09/07/2018 Other cirrhosis of liver 05/06/2018 Atherosclerotic heart diseas e of venetie ira coronary artery with other forms of [...] stenosis 10/31/2010 08/28/2018 Acute coronary syndrome 10/30/201001/04 [employer] Other*[id number] 02/02/2010 04/18/2014 Overview: Karen Registry, Dr Althea [...] Sign Reading Time Taken Comments Blood Pressure 134/68 04/08/2024 8:39 PM EDT Pulse 64 04/08/2024 8:39 PM EDT Temperature 36.1 C (97 F) 04/08/2024 8:39 PM EDT Respiratory Rate 16 04/08/2024 8:39 PM EDT Oxygen Saturation 94% 04/08/2024 8:39 PM EDT Inhaled Oxygen Concentration - - Weight 107 kg (236 lb) 04/08/2024 3:03 PM EDT Height 172.7 cm (5' 8") 04/08/2024 3:03 PM EDT Body Mass Index 35.88 04/08/2024 3:03 PM EDT documented in this encounter Discharge Instructions * Discharge Instr - AVS* Alfredo Panda MD - 04/08/2024 6:57 PM EDT Catheter to gravity drainage as [...] documented in this encounter Progress Notes * Alfredo Panda MD - 04/08/2024 7:17 PM EDT [address] [address] OUTPATIENT SURGERY DISCHARGE SUMMARY NOTE Name: Angelina Ballard Location: OR [facility]/[place] Date: 04/08/2024 Time: 7:20 PM Surgery Date: 04/08/2024 Procedure: CYSTOURETHROSCOPY, ASPIRATION OF BLADDER BY INSERTION OF SUPRAPUBIC CATHETER N/A N/A Surgeon: Alfredo Panda MD Discharge Diagnosis: History of urinary incontinence, dislodged suprapubic tube status post cystoscopy and suprapubic tube placement. After examination of this patient, I have determined she is ready for discharge to home when the patient meets criteria. Discharge instructions were given to the patient. documented in this encounter H&P Notes * Alfredo Panda MD - 04/08/2024 5:59 PM EDT HISTORY & PHYSICAL INTERVAL NOTE [address] [address] History and Physical Update: Name: Angelina Ballard Location: OR [facility]/[place] Date: 04/08/2024 Time: 5:59 PM DATE OF HISTORY AND PHYSICAL: 03/23/2024 BP: 131 mmHg/64 mmHg (04/08/24 1503) Pulse: 61 (04/08/24 1503) Resp: 18 (04/08/24 1503) Temp: 36.11 C (04/08/24 1503) Temp Summary: Temp Min: 36.1 C (97 F) Max: 36.1 C (97 F) SpO2: 96 % (04/08/24 1503) O2 flow rate: Supplemental O2 Delivery: Room Air, None (04/08/24 1503) Does patient take a beta debra? Yes, metoprolol Did patient stop anticoagulants? Yes, Aspirin Heart Exam: regular rate and rhythm Lung Exam: clear to auscultation bilaterally Other Pertinent Physical Exam: Abdomen benign, suprapubic tube site intact I have reviewed the H&P previously performed and examined the patient today. There are no new findings noted. * Alfredo Panda MD - 04/08/2024 5:58 PM EDT GENERAL HISTORY & PHYSICAL EXAMINATION - Urology Service [facility]-[address] [address] Name: Angelina Ballard Location: OR [facility]/[place] Date: 04/08/2024 Time: 5:58 PM Date of H&P March 23, 2024. [id number] PCP: CARMEN SIFUENTES [facility] [place] [address] Angelina Ballard is a 73 year old female, who presents for cystoscopy for evaluation of suprapubic tube location. Patient was in office for suprapubic tube exchange yesterday, proceeded with no resistance or difficulties. However, she reports that since placement it has been malfunctioning with no drainage and leakage per urethra. Malpositioned suprapubic tube is suspected. Patient is here today for evaluation. Urinary Incontinence: Patient is being seen for urinary incontinence. Problem has been present for years. Severity is moderate. Problem is getting better. Urinary incontinence is urge incontinence. They were using 10-15 pads a day. They have used oxybutynin in the past, stopped. Trial of Myrbetriq provided without improvement. Suprapubic tube placed Dec. Malpositioned suprapubic tube found at exchange in office March of 2024. Recurrent UTI: Presented to Urology March 2021. On prophylactic Macrobid. Cystoscopy Oct 2021. Previously treated with fosfomycin. Renal US Apr 2021: IMPRESSION: Current Medications Current Outpatient Medications Medication Sig [...] 1 Kit 0 Blood Glucose Monitoring Suppl (Brighter[employer] VERIO) w/Device KIT Use as directed. Use as directed. 1 Kit 0 Spacer/Aero-Holding Chambers WISAM Use with inhaler. Wheezing/bronchitis. 1 Device 0 Lancet Devices (Br[employer] DELICA LANCING DEV) MISC Use four times [...] 3 mL before bedtime. 360 mL 3 MEDICAL INSTRUCTIONS Please arrange for as needed Home care home visit for obtaining [place] urine sample for 06/25/23. 1 Each 1 Famotidine 40 MG Oral Tablet (Pepcid) TAKE 1 TABLET BY MOUTH EVERY MORNING 90 Tablet 3 OneTouch Delica Lancets 33G USE UP TO FOUR TIMES A DAY Dx:E11.4 360 Each 5 Vitamin C 500 MG Oral Tablet (Ascorbic Acid) TAKE 1 TABLET BY MOUTH TWICE DAILY every morning and before bedtime 180 Tablet 3 PEG 3350 17 GM/SCOOP Oral Powder DISSOLVE [...] Max dose 3 tablets in 15 minutes (Patient not taking: Reportedon 03/22/2024) 25 Tablet 5 Nystatin 650427 UNIT/GM External Powder (Nystop) Apply topically to affected area 3 times a day. Apply to right breast until rash resolved. 30 g 0 Nystatin 975094 UNIT/ML Mouth/Throat Suspension SWISH AND SWALLOW 5ML IN THE MORNING AND 5ML AT NOON AND 5 ML IN THE EVENING AND 5ML BEFORE BEDTIME, FOR THRUSH 240 mL 1 Vitamin D (Ergocalciferol) 1.25 MG (48440 UT) Oral Capsule (Drisdol) TAKE 1 CAPSULE BY MOUTH ONCE WEEKLY 12 Capsule 3 Insulin Glargine Solostar 100 UNIT/ML Subcutaneous Solution Pen-injector (Lantus SoloStar) Inject 35 units subcutaneously twice per day 30 mL 11 ARIPiprazole 5 MG Oral Tablet (Abilify) Take 1 Tablet by mouth in the morning. (Patient not taking:Reported on 03/02/2024) Excedrin Migraine 250-250-65 MG Oral Tablet (Xmzvune-Plawkjlnsaaez-Gcbvucdm 250-250-65 mg per tab) Take 1 Tablet [...] BY MOUTH EVERY 8 HOURS NEEDED FOR [id number] Tablet 5 Pantoprazole Sodium 40 MG Oral Tablet Delayed Release (Protonix) TAKE 1 TABLET BY MOUTH TWICE DAILYevery morning and every evening 180 Tablet 1 Levothyroxine Sodium 88 MCG Oral Tablet (Levoxyl) TAKE 1 TABLET BY MOUTH ONCE DAILY AT LEAST 30 MINUTES BEFORE BREAKFAST AND OTHER MEDICATIONS 90 Tablet 1 clonazePAM 0.5 MG Oral Tablet (KlonoPIN) TAKE ONE TABLET BY MOUTH THREE TIMES DAILY 90 Tablet 0 OneTouch Verio In Vitro Strip (Glucose Blood) use to test blood sugar 3 times daily 300 Strip 3 Cefuroxime Axetil 250 MG Oral Tablet (Ceftin) Take 1 Tablet by mouth in the morning and 1 Tablet before bedtime. 20 Tablet 0 Metoprolol Succinate ER 25 MG Oral Tablet Extended Release 24 Hour (toPROL XL) Take 1 tab by mouth twice per day 180 Tablet 3 Calcium Carbonate-Vitamin D 600-10 MG-MCG Oral Tablet Take 1 by mouth per day 90 Tablet 3 No current facility-administered medications for this [...] History Vaping/E-Cigarette Substances Vaping History Vaping/E-Cigarette Devices Past Surgical History Past Surgical History: Procedure Laterality Date ANESTHESIA, HEART CATHETERIZATION 06/04/12 at [facility] ARTHROPLASTY KNEE TOTAL right CABG, ARTERIAL, SINGLE 02/15/2011 CORONARY ARTERY BYPASS GRAFT USING ARTERY 1 GRAFT performed by TIERNEY GUERRERO at OR [facility] CATHETERIZE LEFT HEART THRU SKIN 04/11/2009 LEFT HEART CATH, PERCUTANEOUS performed by GINGER FISHER at [facility] CATHETERIZE LEFT HEART THRU SKIN 02/01/2010 LEFT HEART CATH, PERCUTANEOUS performed by ALTHEA KWON at [facility] CATHETERIZE LEFT HEART THRU SKIN 04/03/2010 LEFT HEART CATH, PERCUTANEOUS performed by GARCIA SOSA at [facility] COLONOSCOPY, DIAGNOSTIC (RECTUM) 05/20/2014 normal, repeat 10 yrs/done @ [facility] CORONARY ANGIOGRAPHY W/LEFT HEART CATH 10/29/2010 CORONARY ANGIOGRAPHY W/LEFT HEART CATH performed by ANNIE SEVILLA at [facility] EGD, FLEXIBLE, DIAGNOSTIC 12/05/2017 portal hypertensive gastropathy/[facility] EGD, FLEXIBLE, DIAGNOSTIC 10/25/2022 retained food / ESOPHAGOGASTRODUODENOSCOPY (EGD), FLEXIBLE, TRANSORAL, DIAGNOSTIC performed by Raghavendra Medrano MD at ENDOSCOPY [facility] EGD, W/ENDOSCOPIC US 06/26/2011 UPPER GI ENDOSCOPY ENDOSCOPIC ULTRASOUND performed by RACHEL BAHENA at ENDOSCOPY [facility] INFORMATION L hip surgery. OTHER nerve biopsy right calf REMOVAL OF APPENDIX REMOVE ADDED SPINE LAMINA, 1 SEG 07/2007 Dr. Saleem L4-L5 REMOVE GALLBLADDER SURGICAL DRAINAGE OF BLADDER N/A 12/31/2023 CYSTOSTOMY WITH DRAINAGE OF BLADDER performed by Alfredo Panda MD at OR [facility] TOTAL ABD HYSTERECTOMY W/WO REMOVAL [...] thrombophlebitis Recurrent UTI 10/07/2021 Seasonal allergies 11/15/2021 Problem List Patient Active Problem List Diagnosis Gastroesophageal reflux disease without esophagitis S/P angioplasty with stent Dyslipidemia, goal LDL below 70 Hypothyroidism GONZALEZ (nonalcoholic steatohepatitis) Bipolar I disorder, most recent episode depressed, moderate (HCC) HTN, goal below 130/80 MEDICATION USE AGREEMENT Wojvuff-Hkklk-Coogo disease Anxiety Fatty liver Chronic liver disease and cirrhosis (HCC) Portal hypertensive gastropathy (HCC) Moderate aortic stenosis Diabetic gastroparesis (HCC) 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 (HCC) Urge incontinence Type 2 diabetes mellitus with diabetic neuropathy, with long-term current use of insulin (HCC) Type 2 diabetes mellitus with stage 3a chronic kidney disease, with long-term current use of insulin (HCC) Coronary artery disease involving venetie ira coronary artery of venetie ira heart without angina pectoris Seasonal allergies 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) Medical home patient encounter Allergic rhinitis Chronic kidney disease, stage 3a (HCC) COPD, group B, by GOLD 2017 classification ([facility]) Suprapubic catheter (HCC) Recurrent UTI Pelvic pain Constitutional: (-) fever and (-) chills Cardiovascular: (-) chest pain Abdominal/GI: (+) abdominal pain Female : (+) see HPI Musculoskeletal: (+) muscle weakness Physical Exam Constitutional: General: She is not in acute distress. Appearance: She is obese. She is not toxic-appearing. Comments: In wheelchair HENT: Head: Normocephalic and atraumatic. Right Ear: External ear normal. Left Ear: External ear normal. Nose: Nose normal. Mouth/Throat: Mouth: Mucous membranes are moist. Cardiovascular: Pulses: Normal pulses. Pulmonary: Effort: Pulmonary effort is normal. No respiratory distress. Abdominal: General: Abdomen is protuberant. Palpations: Abdomen is soft. Comments: Incision clean, dry, intact without cellulitis Skin: Coloration: Skin is not pale. Neurological: Mental Status: She is oriented to person, place, and time. Motor: Weakness present. Gait: Gait abnormal. Psychiatric: Behavior: Behavior normal. Cystoscopy Procedure Note: Patient was properly identified and appropriate consent was confirmed. Risks and benefits of the procedure were reviewed and the patient was prepped and draped in the standard fashion for the procedure. A well lubricated 16 Niuean flexible cystoscope was introduced through the meatus into the urethra. Urethra demonstrated no abnormalities. Bladder neck was visualized and bladder was entered. Sterile saline irrigation was used to distend the bladder which was noted to have no tumors, stones or mucosal abnormalities and no suprapubic tube and bladder, site of entry on anterior bladder wall appreciated with grade 3 trabeculation. Significant retained PVR is noted. Attempts made to past numerous suprapubic tubes via tract. This is able to be seen anterior to the liver in the vicinity of the patient's entry point but not able to be passed into the bladder. Sixteen silicone, 18 silicone, 20 silicone, 18 coude attempted to be guided in without success. Suprapubic tube tract is attempted to be cannulated using wire but this is not able to be passed through copious subcutaneous soft tissue to the level of the skin. Bladder was completely inspected including retroflexion of the scope. Ureteral orifices were noted to be in the normal anatomic position bilaterally. After this was completed the cystoscope was removed. Patient tolerated the procedure well without complications or difficulties. Orderly was present for entire procedure. Eighteen Niuean silicone Gallagher catheter placed per urethra with 10 mL of sterile water in the balloon after completion. Impression/Plan: 73-year-old female with urinary incontinence, recurrent UTIs and suprapubic tube in place. Findings reviewed with the patient. Unfortunately, her tract has closed sufficiently since yesterday that reestablishment is not possible in office today. Will return to the OR for cystoscopy and suprapubic tube placement as necessary. Will use a Councill catheter to allow for exchange over wire for 4-6 months in office seen current difficulties. Informed consent obtained, risks and benefits reviewed. Patient vocalizes good understanding of the treatment plan. Above content is personally reviewed. Alfredo Panda MD 3:35 PM 03/23/2024 documented in this encounter Nursing Notes * Bruno Us RN - 04/08/2024 8:47 PM EDT [address] [address] SameDay Surgery Discharge Note Name: Angelina Ballard Date: 04/08/2024 Time: 8:47 PM Discharge Disposition: Home Responsible adult as escort home: daughter Transport Mode: Wheelchair Accompanied by: Tin Us RN To: Car Belongings with patient: Yes Patient meets criteria to be transferred or discharged. * Hollis Reyes RN - 04/08/2024 2:55 PM EDT Patient does not meet criteria for testing. * Lizzette Mcgraw RN - 04/06/2024 2:34 PM EDT Patient identified by: name/birthdate Person taught: Patient Optime case procedure confirmed with surgical consent Laterality confirmed as N/a Surgery date at time of Pre-Surgery Center Encounter: 04/08/2024 What procedure is patient having? cystoscopy, open suprapubic tube placement In an emergency, is patient willing to accept blood products or blood transfusion? unknown Do you need to place a blood bank order? No Anesthesia consent pool notified? N/A Anesthesia evaluation requested per case documentation? No Preop Evaluation Requested? No PATIENT EDUCATION SCREENING Person taught: Patient Motivation Level: Asks Questions and Eager to Learn Language Barrier: No Physical Barrier: N/A METHOD: Lecture-telephone interview Patient Preferred Learning Methods: Lecture-Telephone interview Health History interview completed, questions answered, and the following patient instructions provided via telephone interview: Preoperative bathing instructions General preoperative instructions Medication instructions NPO instructions - If your normal morning routine take atorvastatin, Pepcid, gabapentin, Lamictal, metoprolol, Singulair, Protonix, Effexor, routine and if needed rescue breathing medications the morning of surgery. If you take metformin, hold it the evening before surgery as well. No tobacco products after midnight. OUTCOME: State / Describe / Explain, Needs Reinforcement, and Verbalizes understanding of education * Lizzette Mcgraw RN - 04/02/2024 3:38 PM EDT Left message on mobile phone for return call @ [phone] by Patient at least one week prior to surgery date or to leave a number where they can be reached . Instructed clinic open hours are M-F 8:00a- 4:00p. Pt notified MyG message sent with pre-op medication instructions. documented in this encounter OR Notes * OR Surgeon - Alfredo Panda MD - 04/08/2024 7:02 PM EDT [facility]-[address] [place] [address] OPERATIVE REPORT Name: Angelina Ballard Date: 04/08/2024 Time: 7:03 PM Location: OR [facility] Service: Urology Date of Operation: 04/08/2024 Pre-op Diagnosis: History of urinary incontinence with dislodged suprapubic catheter. Post-op Diagnosis: Same Surgeon: Alfredo Panda MD Assistants: Feli Vera PA-C. No qualified resident available. Crm Architect present for tissue retraction, passage of tractor, patient positioning and general patient safety. Anesthesia: General anesthesia with laryngeal mask Operation: Cystoscopy, open suprapubic tube placement. Findings: Mild bladder inflammation without evidence of UTI, good position of anterior suprapubic tube after completion of case. Case Acuity: Elective Specimen and Disposition: None Estimated Blood Loss: Less than 10 mL Fluids: Less than 1000 mL Drains/Implants: 24 Niuean silicone suprapubic catheter with Councill perforation with 12 mL of sterile water in the balloon. Complications: none Postoperative Condition: stable Indications and History: Patient is a 73-year-old female with a history of recurrent urinary tract infection and urge incontinence who was managed with a suprapubic catheter for 3 months with improvement in her symptoms status post suprapubic catheter dislodgement at her last exchange. Patient is here today for replacementof her suprapubic catheter. Please see outpatient H&P and notes for further details. Informed consent obtained preoperatively today. IV ceftriaxone provided for antibiotic coverage, patient's preoperative culture is negative for urinary organisms. SCDs used for DVT prophylaxis. No new questions, wishes to proceed. Description of Operation: Patient was properly identified and brought into the operative suite after identification of appropriate consent in the chart. General anesthesia with laryngeal mask was initiated and patient was prepped and draped in the standard fashion for this procedure. part time-out procedure was followed. Twenty-one Niuean rigid cystoscope was introduced into the bladder and the bladder was surveyed in itsentirety demonstrating a normal urethra, trabeculated bladder with inflammation from indwelling Gallagher catheter, grade 3 trabeculation. No evidence of worrisome lesions or tumor was identified. Ureteral orifices were appreciated in the normal anatomic location with mild lateral floor bladder relaxation. Bladder was flushed with greater than 1 L of sterile fluid to minimize bacteriuria. After this was complete the bladder was partially distended and a [place] tractor was passed through the urethra and used to tent the anterior abdominal wall at the site of the patient's previous suprapubic catheter. Bovie cautery was used in the subcutaneous tissues and [place] retractors were used to expose the tractor via the suprapubic incision. 2-0 silk tie was used via the eyelet of a 24 [place] silicone Gallagher catheter and grasped via the [...] the balloon fully present within the bladder. Sterile dressing was placed and anesthesia was reversed. Patient was transferred to the recovery room in stable condition. Follow-up care: Intraoperative findings reviewed with the patient's daughter. Prescription for a short course of Percocet for pain control and Bactrim was provided. Patient's complete her cefdinir. Outpatient appointments are confirmed. Worrisome signs and symptoms reviewed with patient and daughter. Patient is instructed to contact us with any fevers, chills, nausea, vomiting or other difficulties in the postoperative period. Attestation: I performed the procedure documented in this encounter Miscellaneous Notes * Pt Handout (on AVS) - Bruno Us RN - 04/08/2024 8:39 PM EDT Images from the original note were not included. [id number] Discharge Instructions: Caring for Your Leg Bag You are going home with a urinary catheter and collection device (drainage bag) in place. One type of collection device is called a leg bag. This is a smaller drainage bag that you can wear on your leg to collect urine during the day. The bag can fit under your clothing. You can move around with greater ease when using a leg bag instead of a larger collection bag. You were shown how to care for your catheter in the hospital. The information below will help you remember those steps when you are at home. Home care Wash your hands thoroughly before and after you care for your catheter or collection device. Gather your supplies: o Alcohol wipes o Soap and water o Towel and washcloth o Leg strap and leg bag Use soap and water to wash the area where your catheter enters your body. Rinse well. Secure the bag lee to your leg: o Put the leg band high on your thigh with the product label pointing away from your leg. o Stretch the leg band in place and fasten. o Place the catheter tubing over the bag and secure it. You may secure it with a Velcro tab or other method, depending on the product you use. Be sure to leave enough loop in the catheter above the leg band so you won't pull on the tube. o Every 4 to 6 hours, reposition the band. This will prevent pressure from the elastic on your leg.You can do this by changing the bag to the other leg or by raising or lowering the leg band. o Wash the band as often as needed. You can hand wash and dry the leg band. Place the bag in the bag lee. Clean the urine bag end of the catheter and your catheter port with an alcohol wipe. Place a towel under the bag and port to keep urine from dripping onto your leg. Before connecting the outlet valve at the bottom of the bag to the catheter, make sure that it is firmly closed. Flip the valve up toward the bag. It needs to snap firmly in place. Don't tug on the tubing. Be gentle. Attach the urine bag to the end of the catheter. Insert the connector snugly into the catheter port. You can prevent dribbling urine by bending the catheter tubing just below the tip and holding it while you disconnect it from the catheter. Be careful to keep the tip clean while connecting the leg bag tubing to the catheter. This keeps germs from getting into the system. Drain the bag when it's full. To drain the bag, flip the clamp downward. Direct the flexible outlet tube to control the flow of urine. You don?t have to disconnect the leg bag from the catheter toempty it. Raise your leg up to the edge of the toilet to reach the leg bag. Then you can empty the bag directly into the toilet. This way, you won?t need to bend over, which may be uncomfortable. Keep the leg bag clean. Your healthcare provider may advise that you use a certain solution to clean the bag. Ask your healthcare provider if and how often you should clean your bag and what solution you should use ?to reduce odor and keep the bag free of germs. Shake the solution a bit and allow it to remain in the bag for 30 minutes. Drain the solution and rinse the bag with cold tap water. Hang the bag to drain and air dry. Remember to keep the drainage bag below the level of your bladder for correct drainage. Follow-up Make a follow-up appointment as directed by your healthcare provider. When to call your healthcare provider Call your healthcare provider or get medical care right away if you have any of the following: Redness, swelling, or warmth around the catheter entry site Pus draining from your catheter entry site or into the catheter tubing and bag Blood, clots, or floating debris in the urine Nausea and vomiting Shaking chills Fever above 100.4F ( 38C), or as directed by your healthcare provider Pain Catheter that falls out or is dislodged Last Reviewed Date: 2024 00:00:00 [id number] [employer]. All rights reserved. This information is not intended as a substitute for professional medical care. Always follow your healthcare professional's instructions. * Pt Handout (on AVS) - Bruno Us RN - 04/08/2024 8:39 PM EDT Images from the original note were not included. [id number] Discharge Instructions: Caring for Your Indwelling Urinary Catheter You have been discharged with an indwelling urinary catheter. It's also called a Gallagher catheter. A catheter is a thin, flexible tube. An indwelling urinary catheter has 2 parts. The first part is a tube that drains urine from your bladder. The second part is a bag or other device that collects the urine. The most important thing to remember is that you want to prevent infection. Always wash your hands before handling your catheter bag or tubing. Draining the bedside bag Wash your hands with soap and clean, running water. Or use an alcohol-based hand unit manager rn that contains at least 60% alcohol. Hold the drainage tube over a toilet or measuring container. Unclamp the tube and let the bag drain. Don?t touch the tip of the drainage tube or let it touch the toilet or container. You don't need to rinse the bag or drainage tube. Cleaning the drainage tube When the bag is empty, clean the tip of the drainage tube with an alcohol wipe. Clamp the tube. Reinsert the tube into the pocket on the drainage bag. Cleaning your skin and tubing Clean the skin near the catheter with soap and water. Wash your genital area from front to back. Wash the catheter tubing. Always wash the catheter in the direction away from your body. You will be told when and how to change your bag and tubing. Don?t try to remove the catheter by yourself. You may shower with the catheter in place. Emptying a leg bag Wash your hands. Remove the stopper on the bag. Drain the bag into the toilet or a measuring container. Don?t let the tip of the drainage tube touch anything, including your fingers. Clean the tip of the drainage tube with alcohol. Replace the stopper. Follow-up care Make a follow-up appointment, or as directed by your healthcare provider. When to call your healthcare provider Call your healthcare provider right away if you have any of the following: Fever of 100.4F ( 38C) or higher, or as directed by your provider Chills Leakage around the catheter insertion site Increased spasms (uncontrollable twitching) in your legs, belly (abdomen), or bladder. Occasional mild spasms are normal. Burning in the urinary tract, penis, or genital area Nausea and vomiting Aching in the lower back Cloudy or bloody (pink or red) urine, sediment or mucus in the urine, or bad- smelling urine Last Reviewed Date: 2022 00:00:00 [id number] [employer]. All rights reserved. This information is not intended as a substitute for professional medical care. Always follow your healthcare professional's instructions. documented in this encounter Plan of Treatment Upcoming Encounters Date Type Department Care Team (Late st Contact Info) Description 04/20/2024 1:30 PM EDT Office Visit Urology, [facility] [address] [place] [address] Alfredo Panda MD [address] [id number] 04/23/2024 10:30 AM EDT Scheduled Telephone [facility] [address] [place] [facility] [place] [address] Jesusita Saenz RDN [address] [place] [address] 05/03/2024 2:00 PM EDT Procedure Only Urology, [facility] [address] [place] [address] Alfredo Panda MD [address] [id number] 06/08/2024 6:00 PM EST Office Visit [facility] [address] [place] [address] Carmen Sifuentes MD [address] [place] [address] 06/23/2024 11:45 AM EST Office Visit Urology [facility] [address] [place] [address] Alfredo Panda MD [address] [address] Scheduled Orders Name Type Priority Associated Diagnoses Orde r Schedule GLUCOSE METER, POINT OF CARE (COMMUNICATION ORDER) Point of Care Testing STAT Perform Now for 1 Occurrences starting 04/08/2024 until 04/08/2024 Scheduled Procedures Name Priority Associated Diagnoses Date/Ti [...] Additional history exists CKD PHOS USE SMARTSET 88474 10/24/202310/05, 02/18/2022, 02/17/2022, Additional history exists COVID-19 [...] Additional history exists CKD HGB USE SMARTSET 77045 02/18/202502/18, 02/19/2024, 12/11/2023, Additional history exists O2 [...] encounter Medical Devices Implanted Type Area Cell Geneticist Device Identifier Shelf Expiration Date Model / Serial / Lot Sut Steel 6 M654g - [id number] Implanted:Qty: 3 on 02/15/2011 at OR [facility] [place] N/A: Chest DO NOT USE 01/15/2015 M654G / / [id number] Band [facility] 225-241 - [id number] Implanted:Qty: 1 on 02/15/2011 at OR [facility] [place] N/A: Chest [employer] 225-241 / / [id number] Sut Steel 6 M654g - [id number] Implanted:Qty: 1 on 02/15/2011 at OR [facility] [place] N/A: Chest DO NOT USE 07/21/2015 M654G / / [id number] documented as of this encounter Procedures Procedure Name Priority Date/Time Associated Diagnosis Comments GLUCOSE METER, POINT OF CARE MYRA 04/08/2024 7:32 PM EDT BLADDER ASPIRATION BY SUPRAPUBIC CATH 04/08/2024 5:56 PM EDT Urge incontinence Recurrent UTI Pelvic pain Suprapubic catheter (HCC) CYSTOSCOPY 04/08/2024 5:56 PM EDT Urge incontinence Recurrent UTI Pelvic pain Suprapubic catheter (HCC) GLUCOSE METER, POINT OF CARE MRYA 04/08/2024 3:16 PM EDT documented in this encounter Results * GLUCOSE METER, POINT OF CARE (04/08/2024 7:32 PM EDT) GLUCOSE - POCT 82 70 - 120 mg/dL 04/08/2024 7:37 PM EDT [facility] Blood Whole blood specimen / Unknown 04/08/2024 7:32 PM EDT 04/08/2024 7:37 PM EDT Alfredo Panda MD LAB POINT OF CAR E TEST DOCKED DEVICE UNSOLICITED RESULTS Performing Organization Address [facility] Co de Phone Number [facility] [address] [place] [address] * GLUCOSE METER, POINT OF CARE (04/08/2024 3:16 PM EDT) GLUCOSE - POCT 83 70 - 120 mg/dL 04/08/2024 3:19 PM EDT [facility] Blood Whole blood specimen / Unknown 04/08/2024 3:16 PM EDT 04/08/2024 3:19 PM EDT Alfredo Panda MD LAB POINT OF CAR E TEST DOCKED DEVICE UNSOLICITED RESULTS Performing Organization Address [facility] de Phone Number [facility] [address] [place] [address] documented in this encounter Visit Diagnoses Diagnosis Suprapubic catheter (HCC)- Primary Other cystostomy status Suprapubic catheter (HCC) Other cystostomy status Urge incontinence Recurrent UTI Urinary tract infection, site not specified Pelvic pain documented in this encounter Administered Medications Inactive Administered Medications - up to 3 most recent administrations Medication Order MAR Action Action Date Dose Rate Site isolyte-S pH 7.4 infusion Intravenous, at 50 mL/hr, Plasma-LYTE 148, isolyte-S, and isolyte-S pH 7.4 are considered equivalent - including for MAR barcode scanning., CONTINUOUS, Starting on Whitney 04/08/24 at 1530, Until Fri04/09/24 at 0107, Pre-Op Restarted 04/08/2024 6:18 PM EDT Continue from Pre-Op 04/08/2024 6:13 PM EDT 50 mL/hr New Bag 04/08/2024 3:25 PM EDT 50 mL/hr Povidone-Iodine nasal swab 1 Swab 1 Swab, Nasal, ONCE, On Fri04/08/24 at 1530, For 1 dose, Administer as per surgical asst instructions unless contraindicated., Pre-Op Given 04/08/2024 3:05 PM EDT 1 Swab documented in this encounter Active and Recently Administered Medications Times are shown in EDT. Scheduled Medication Order 04/06/2024 04/07/2024 04/08/2024 cefTRIAXone in dextrose (Rocephin) IVPB 2 g (COMPLETED) IV Piggyback, 2 g, PREOP, 1 dose, First dose on Fri04/08/24 at 1530, Administer over 30 Minutes, +++ SDS for 04/08 +++, Pre-Op 181 (Given - Provid er: Jus Boothe CRNA) Povidone-Iodine nasal swab 1 Swab (COMPLETED) 1 Swab, Nasal, ONCE, On Fri04/08/24 at 1530, For 1 dose, Administer as per surgical asst instructions unless contraindicated., Pre-Op 1505 (Given - Provid er: Bruno Us RN - Comment: 1 swab each nare by Mariposa Mayo RN) Continuous Medication Order 04/06/2024 04/07/2024 04/08/2024 isolyte-S pH 7.4 infusion Intravenous, at 50 mL/hr, Plasma-LYTE 148, isolyte-S, and isolyte-S pH 7.4 are considered equivalent - including for MAR barcode scanning., CONTINUOUS, Starting on Fri04/08/24 at 1530, Until Fri04/09/24 at 0107, Pre-Op 1525 (New Bag - Prov ider: Bruno Us RN)181 (Continue from Pre-Op - Provider: Jus Boothe CRNA)1816 (Paused - Provider: Jus Boothe CRNA - Comment: Switch to gravity)181 (Restarted - Provider: Jus Boothe CRNA)191 (Stopped - Provider: Jus Boothe CRNA) isolyte-S pH 7.4 infusion Intravenous, at 50 mL/hr, Plasma-LYTE 148, isolyte-S, and isolyte-S pH 7.4 are considered equivalent - including for MAR barcode scanning., CONTINUOUS, Starting on Whitney 04/08/24 at 1945, Until 04/09/24 at 0107, Post-op 1945 (Due) PRN Medication Order 04/06/2024 04/07/2024 04/08/2024 sodium chloride IR 0.9 % irrigation (CANCELED) ONCE PRN INTRA PROCEDURE, Starting on Whitney 04/08/24 at 1854, Until Whitney 04/08/24 at 1909, Intra-Op 1854 (Given - Provid er: Alfredo Panda MD - Comment: Cysto) documented in this encounter Advance Directives Documents on File Type Date Recorded 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
--- OUTSIDE RECORDS SUMMARY | 2024-04-20 22:05 | External Medical Summary ---
Author Name Unknown Address Unknown Organization : Laboratory Report Ordering Provider Test Date Status DAIANA SAINI 04/08/2024 15:16:59 Final Observation Date Value Abnormality Reference (Units ) Status Glucose Point of Care 04/08/2024 15:16:59 83 70-120 (mg/dL) Final Performing Location
--- OUTSIDE RECORDS SUMMARY | 2024-04-20 22:05 | External Medical Summary | Summary of Care ---
Author Name Unknown Organization [facility] Address [address] [facility] [place] [address] Phone [phone] Care Team Providers Care Commissary Assistant Name Role Phone Brian Domínguez MD Primary Care Provider [phone]- [phone] Reason for Visit * Reason Onset Date Comments [facility]: Maintenance 04/05/2024 Encounter Details Date Type Department Care Team (Late st Contact Info) Description 04/05/2024 11:45 AM EDT Scheduled Telephone [facility], [facility] [address] [place] [address] Coordinator, [facility] [address] [place] [address] Allergies Active Allergy Reactions Criticality Noted Date Comments Propoxyphene Hcl Rash Low 10/29/2010 Fentanyl Diarrhea Low 04/26/2010 anxiety Methocarbamol Medium 10/05/2020 Other reaction(s): Delirium Methocarbamol Low 04/15/2007 Zolpidem Low 10/05/2020 Other reaction(s): Confusion documented as of this encounter (statuses as of 04/05/2024) Medications Medication Sig Dispensed Refills Start Date End Date Status venlafaxine XR (EFFEXOR XR) 150 MG [id number]:Dep ression Take 1 Cap by mouth daily. [...] Kit 11/18/2017 Active Blood Glucose Monitoring Suppl (Solio VERIO) w/Device KIT Use as directed. Use as directed. 1 Kit 10/31/2018 Active Spacer/Aero-Holding Chambers WISAM Use with inhaler. Wheezing/bronchitis . 1 Device 04/08/2019 Active Lancet Devices (CleanAppTOUCH DELICA LANCING DEV) MISC Use four times [...] FOR CONSTIPATION. 510 g 5 09/22/2023 Active Gabapentin 300 MG Oral Capsule (Neurontin)Indicati [...] Information Patient not taking.Reported on 03/22/2024 Nystatin 069729 UNIT/GM External Powder (Nystop)Indications :Candidal intertrigo Apply topically to affected area 3 times a day. Apply to right breast until rash resolved. 30 g 10/16/2023 Active Nystatin 798317 UNIT/ML Mouth/Throat Suspension SWISH AND SWALLOW 5ML IN THE MORNING AND 5ML AT NOON AND 5 ML IN THE EVENING AND 5ML BEFORE BEDTIME, FOR THRUSH 240 mL 1 10/16/2023 Active Vitamin D (Ergocalciferol) 1.25 MG (38909 UT) Oral Capsule (Drisdol)Indication s:Vitamin D deficiency [...] per week 3 mL 5 01/01/2024 Active Tamsulosin HCl 0.4 MG Oral Capsule [...] every evening 180 Tablet 1 02/09/2024 Active Levothyroxine Sodium 88 MCG Oral Tablet (Levoxyl)Indication s:Hypothyroidism TAKE 1 TABLET BY MOUTH ONCE DAILY AT LEAST 30 MINUTES BEFORE BREAKFAST AND OTHER MEDICATIONS 90 Tablet 1 03/11/2024 Active clonazePAM 0.5 MG Oral Tablet (KlonoPIN)Indicatio ns:Bipolar I disorder, most recent episode depressed, moderate (HCC) TAKE ONE TABLET BY MOUTH THREE TIMES DAILY 90 Tablet 03/19/2024 Active OneTouch Verio In Vitro Strip (Glucose Blood)Indications:T ype 2 diabetes mellitus with diabetic neuropathy, with long-term current use of insulin (HCC) use to test blood sugar 3 times daily 300 Strip 3 03/19/2024 Active Cefuroxime Axetil 250 MG Oral Tablet (Ceftin) Take 1 Tablet by mouth in the morning and 1 Tablet before bedtime. 20 Tablet 03/20/2024 Active Metoprolol Succinate ER 25 MG Oral Tablet Extended Release 24 Hour (toPROL XL)Indications:HTN, goal below 130/80 Take 1 tab by mouth twice per day 180 Tablet 3 03/22/2024 Active Calcium Carbonate-Vitamin D 600-10 MG-MCG Oral Tablet Take 1 by mouth per day 90 Tablet 3 03/22/2024 Active Spironolactone 50 MG Oral Tablet (Aldactone)Indicati ons:GONZALEZ (nonalcoholic steatohepatitis),Po rtal hypertension (HCC),Chronic liver disease and cirrhosis (HCC),Portal hypertensive gastropathy (HCC) TAKE ONE TABLET BY MOUTH IN THE MORNING AND ONE TABLET BEFORE BEDTIME 180 Tablet 1 03/31/2024 Active Torsemide 20 MG Oral Tablet (Demadex)Indication s:Atherosclerotic heart disease of [place] coronary artery with other forms of angina pectoris (HCC),Hypertensive heart disease with chronic diastolic congestive heart failure (HCC) TAKE 1 TABLET BY MOUTH EVERY MORNING - may take an additional tablet if needed for swelling 90 Tablet 1 03/31/2024 Active documented as of this encounter (statuses as of 04/05/2024) Active Problems Problem Noted Date Diagnosed Date [...] encounter 01/06/2023 Coronary artery disease invo lving [place] coronary [...] at goal, continue same Urge incontinence 03/27/2021 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 Pt also to see uro-wood heel flap inserter and ID Acute cystitis without hematuria 03/27/2021 [...] stenosis 10/31/2010 08/28/2018 Acute coronary syndrome 10/30/201001/04 [place] Research Other*[id number] 02/02/2010 04/18/2014 Overview: Karen Registry, Dr Joel [...] as of this encounter (statuses as of 04/05/2024) Immunizations Name Administration Dates Next Due COVID-19 [...] lent Hd (Fluzone Hd) 06/17/2023,03/14/2022,04/10/2021 Seasonal Influenza, Trivalen t, (IIV3), with Preserv, (Fluzone) 03/21/2015,04/28/2013,04/09/2012,06/11,03/29/2010,04/10/2009,04/06/2008 ,05/12/2007,06/04/2006 TDAP (age 10 and older)(Boostrix) [...] s 01/20/2024 Does the household have a [facility] source of income? (Household - for [...] Telephone Encounter - Andie Francois RN - 04/05/2024 1:28 PM EDT Images from the original note were not included. [facility] Telephonic Nurse Follow-Up Call [facility] Subprogram: Focused Care Management (3-9 months) Follow Up Call Type: 48 hour follow up Acute issue requiring follow-up call: Other: follow up on urine results, symptoms Objective: 03/29/2024 6:22 PM 03/22/2024 11:13 AM 03/18/2024 12:39 PM 03/02/2024 2:35 PM 02/09/2024 9:47 AM VITALS ACROSS ENCOUNTERS BP 118/70 122/62 116/72 112/80 108/60 Pulse 146 68 74 157 67 Weight 107 kg BMI 35.88 kg/m2 Remote Patient Monitoring: NONE Oxygen Needs: NO supplemental oxygen needs identified DME Needs: NO DME needs identified Medications: No medication or dose adjustments made during acute episode Subjective: Condition Status: UTC-left vm asking for return call Current Concerns: Patient on for follow up call to obtain results of urine culture collected with new IUBC on 04/04/24. Patient is scheduled for Cystourethroscopy aspiration of bladder by insertion of suprapubic catheter on 04/08/24. Disposition: Follow up call scheduled for tomorrow with RADHA MarrufoAutistic Teacher Future Visits Scheduled: Future Appointments-next 60 days Date/Time Provider Specialty Dept Phone 04/06/2024 10:15 AM Coordinator, Sebas Marrufo [facility] [phone] 04/20/2024 1:30 PM (Arrive by 1:15 PM) Alfredo Panda MD Urology [phone] 04/23/2024 10:30 AM Jesusita Saenz RDN [facility] [phone] 05/03/2024 2:00 PM (Arrive by 1:45 PM) Alfredo Panda MD Urology [phone] 06/08/2024 6:00 PM (Arrive by 5:45 PM) Brian Domínguez MD Family Medicine [phone] 06/23/2024 11:45 AM (Arrive by 11:30 AM) Alfredo Panda MD Urology [phone] Andie Francois RN documented in this encounter Plan of Treatment Upcoming Encounters Date Type Department Care Team (Late st Contact Info) Description 04/06/2024 10:15 AM EDT Scheduled Telephone [facility], [facility] [address] [address] Coordinator, Sebas Marrufo [address] [place] [address] 04/08/2024 4:08 PM EDT Hospital Encounter OR GL, Operating Room, [facility] - 4th Floor [address] [place] [address] Alfredo Panda MD [address] [place] [address] 04/08/2024 4:08 PM EDT - 04/08/2024 5:19 PM EDT Surgery OR [facility], Operating Room, [facility] - 4th Floor [address] [place] [address] Alfredo Panda MD [address] [place] [address] [address] CYSTOURETHROSCOPY 04/20/2024 1:30 PM EDT Office Visit Urology, [facility] [address] [facility] [place] [address] Alfredo Panda MD [address] [place] [address] [address] 04/23/2024 10:30 AM EDT Scheduled Telephone [facility], [facility] [address] [facility] [place] [address] Jesusita Saenz RDN [address] [facility] [place] [address] 05/03/2024 2:00 PM EDT Procedure Only Urology, [facility] [address] [facility] [place] [address] Alfredo Panda MD [address] [place] [address] 06/08/2024 6:00 PM EST Office Visit [address] [phone] Brian Domínguez MD [address] [place] [address] 06/23/2024 11:45 AM EST Office Visit Urology, [facility] [address] [facility] [place] [address] Alfredo Panad MD [address] [facility] [place] [address] Scheduled Procedures Name Priority Associated Diagnoses Date/Ti me CYSTOURETHROSCOPY Urge incontinence Recurrent UTI Pelvic pain Suprapubic catheter (HCC) 04/08/2024 4:08 PM EDT ASPIRATION OF BLADDER BY INSERTION OF SUPRAPUBIC CATHETER Urge incontinence Recurrent UTI Pelvic pain Suprapubic catheter (HCC) 04/08/2024 4:08 PM EDT COLONOSCOPY FLEXIBLE PROXIMA L DIAGNOSTIC Recall Special [...] Additional history exists CKD PHOS USE SMARTSET 37830 10/24/202310/05, 02/18/2022, 02/17/2022, Additional history exists COVID-19 [...] COPD 12/30/2024 12/31/2023 CKD HGB USE SMARTSET 57616 02/18/202502/18, 02/19/2024, 12/11/2023, Additional history exists DTap/Tdap [...] this encounter Medical Devices Implanted Type Area Demurrage Worker Device Identifier Shelf Expiration Date Model / Serial / Lot Sut Steel 6 M654g - [id number] Implanted:Qty: 3 on 02/15/2011 at OR [facility] [place] [facility] N/A: Chest DO NOT USE 01/15/2015 M654G / / [id number] Band Magdy 225-603 - [id number] Implanted:Qty: 1 on 02/15/2011 at OR [facility] [place] N/A: Chest [employer] 225-241 / / [id number] Sut Steel 6 M654g - [id number] Implanted:Qty: 1 on 02/15/2011 at OR [facility] [place] [facility] N/A: Chest DO NOT USE 07/21/2015 M654G / / [id number] documented as of this encounter Advance Directives Documents on File Type Date Recorded 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
--- OUTSIDE RECORDS SUMMARY | 2024-04-20 22:05 | External Medical Summary | Summary of Care ---
Author Name Unknown Organization [facility] Address [address] [facility] [place] [address] Phone [phone] Care Team Providers Care Art Dealer Name Role Phone Brian Domínguez MD Primary Care Provider +1- [phone] Reason for Visit * Reason Onset Date Comments [facility]: Maintenance 04/06/2024 Encounter Details Date Type Department Care Team (Late st Contact Info) Description 04/06/2024 10:15 AM EDT Scheduled Telephone [facility], [facility] [address] [place] [address] Coordinator, [facility] [address] [place] [address] Allergies Active Allergy Reactions Criticality Noted Date Comments Propoxyphene Hcl Rash Low 10/29/2010 Fentanyl Diarrhea Low 04/26/2010 anxiety Methocarbamol Medium 10/05/2020 Other reaction(s): Delirium Methocarbamol Low 04/15/2007 Zolpidem Low 10/05/2020 Other reaction(s): Confusion documented as of this encounter (statuses as of 04/06/2024) Medications Medication Sig Dispensed Refills Start Date End Date Status venlafaxine XR (EFFEXOR XR) 150 MG [id number]:Dep ression Take 1 Cap by mouth daily. [...] Kit 11/18/2017 Active Blood Glucose Monitoring Suppl ([employer] VERIO) w/Device KIT Use as directed. Use as directed. 1 Kit 10/31/2018 Active Spacer/Aero-Holding Chambers WISAM Use with inhaler. Wheezing/bronchitis . 1 Device 04/08/2019 Active Lancet Devices (SatellogicTOUCH DELICA LANCING DEV) MISC Use four times [...] Information Patient not taking.Reported on 03/22/2024 Nystatin 406172 UNIT/GM External Powder (Nystop)Indications :Candidal intertrigo Apply topically to affected area 3 times a day. Apply to right breast until rash resolved. 30 g 10/16/2023 Active Nystatin 658567 UNIT/ML Mouth/Throat Suspension SWISH AND SWALLOW 5ML IN THE MORNING AND 5ML AT NOON AND 5 ML IN THE EVENING AND 5ML BEFORE BEDTIME, FOR THRUSH 240 mL 1 10/16/2023 Active Vitamin D (Ergocalciferol) 1.25 MG (89603 UT) Oral Capsule (Drisdol)Indication s:Vitamin D deficiency [...] Tablet before bedtime. 20 Tablet 03/20/2024 Active Additional Information Patient not taking.Reported on 04/06/2024 Metoprolol Succinate ER 25 MG Oral Tablet [...] Oral Tablet (Demadex)Indication s:Atherosclerotic heart disease of [place] coronary artery with other forms of angina pectoris (HCC),Hypertensive heart disease with chronic diastolic congestive heart failure (HCC) TAKE 1 TABLET BY MOUTH EVERY MORNING - may take an additional tablet if needed for swelling 90 Tablet 1 03/31/2024 Active documented as of this encounter (statuses as of 04/06/2024) Active Problems Problem Noted Date Diagnosed Date [...] encounter 01/06/2023 Coronary artery disease invo lving [place] coronary artery of [place] heart without angina pectoris 11/15/2021 Last [...] at goal, continue same Urge incontinence 03/27/2021 snf (current) use of [...] 05/04/2004 Overview: Updated due to amp error Nkrtztg-Swhws-Wfdkt disease 12/31/2002 Last Assessment & Plan: Frequent falls Home PT and OT continue GONZALEZ (nonalcoholic steatohepatitis) documented as of this encounter (statuses as of 04/06/2024) Resolved Problems Problem Noted Date Diagnosed Date [...] is giving this. Pt also to see uro-silk screen etcher and ID Acute cystitis without hematuria 03/27/2021 07/08/2022 Pelvic pain 03/27/2021 02/03/2024 Type 2 diabetes mellitus wit h diabetic neuropathy 09/07/2018 11/07/2023 Overview: duplicate Mild protein-calorie malnutrition 05/07/2018 04/29/2019 Diabetes mellitus with neuropathy 05/06/2018 09/07/2018 Other cirrhosis of liver 05/06/2018 Atherosclerotic heart diseas e of [place] coronary artery with other forms of [...] stenosis 10/31/2010 08/28/2018 Acute coronary syndrome 10/30/201001/04 [place] Research Other*[id number] 02/02/2010 04/18/2014 Overview: Karen Registry, Dr Joel [...] as of this encounter (statuses as of 04/06/2024) Immunizations Name Administration Dates Next Due COVID-19 [...] Telephone Encounter - Andie Francois RN - 04/06/2024 2:44 PM EDT [facility] Telephonic Nurse Follow-Up Call [facility] Subprogram: Focused Care Management (3-9 months) [...] asking for return call Current Concerns: Patient is scheduled for Cystourethroscopy aspiration of bladder by insertion of suprapubic catheter on 04/08/24. Culture results were sent to urology yesterday. Calling patient today to see how she is feeling, ifshe has heard anything back from urology. Left vm asking for return call. Disposition: Routed to [facility] and/or [facility] Care Team for further advice Future Visits Scheduled: Future Appointments-next 60 days Date/Time Provider Specialty Dept Phone 04/06/2024 10:15 AM CoordinatorSebas [facility] [phone] 04/20/2024 1:30 PM (Arrive by 1:15 PM) Alfredo Panda MD Urology [phone] 04/23/2024 10:30 AM Jesusita Saenz RDN [facility] [phone] 05/03/2024 2:00 PM (Arrive by 1:45 PM) Alfredo Panda MD Urology [phone] 06/08/2024 6:00 PM (Arrive by 5:45 PM) Brian Domínguez MD Family Medicine [phone] 06/23/2024 11:45 AM (Arrive by 11:30 AM) Alfredo Panda MD Urology [phone] Andie Francois RN documented in this encounter Plan of Treatment Upcoming Encounters Date Type Department Care Team (Late st Contact Info) Description 04/08/2024 4:08 PM EDT Hospital Encounter OR GL, Operating Room, [facility] - 4th Floor [address] [place] [phone] Alfredo Panda MD [address] [address] [address] 04/08/2024 4:08 PM EDT - 04/08/2024 5:19 PM EDT Surgery OR [facility], Operating Room, [facility] - 4th Floor [address] [place] [address] Alfredo Panda MD [address] [address] CYSTOURETHROSCOPY 04/20/2024 1:30 PM EDT Office Visit U[facility], [facility] [address] [facility] [address] Alfredo Panda MD [address] [address] 04/23/2024 10:30 AM EDT Scheduled Telephone [facility], [facility] [address] [place] [facility] [place] [address] Jesusita Saenz, RDN [address] [place] [facility] [place] [address] 05/03/2024 2:00 PM EDT Procedure Only Urology, [facility] [address] [facility] [place] [address] Alfredo Panda MD [address] [address] 06/08/2024 6:00 PM EST Office Visit [facility] [address] [place] [id number] Brian Domínguez MD [address] [place] [address] 06/23/2024 11:45 AM EST Office Visit Urology, [facility] [address] [facility] [place] [address] Alfredo Panda MD [address] [place] [address] Scheduled Procedures Name Priority Associated Diagnoses [...] Additional history exists CKD PHOS USE SMARTSET 00051 10/24/202310/05, 02/18/2022, 02/17/2022, Additional history exists COVID-19 Vaccine ( season) 2024 06/10/2021, 08/29/2020, 08/01/2020 Colonoscopy 05/20/2024 05/20/2014 Colorectal Cancer Screening 05/20/2024 TSH 06/17/2024 06/17/2023, 05/08, 02/13/2023, Additional history exists GFR 08/21/2024 02/19/2024, 10/05, 08/04/2023, Additional history exists HbA1c 08/21/2024 02/19/2024, 06/12/2023, 10/17/2023, Additional history exists Diabetic Foot Exam 10/15/2024 10/16/2023, 1 07/22/2019, 02/22/2019, Additional history exists Albumin/Creatinine Ratio 11/03/2024 024, 10/23/2022, 07/17/2022, Additional history exists O2 ASSESSMENT COMPLETED IN PAST YEAR FOR COPD 12/30/2024 12/31/2023 CKD HGB USE SMARTSET 58681 02/18/202502/18, 02/19/2024, 12/11/2023, Additional history exists DTap/Tdap [...] this encounter Medical Devices Implanted Type Area Overedger Device Identifier Shelf Expiration Date Model / Serial / Lot Sut Steel 6 M654g - [id number] Implanted:Qty: 3 on 02/15/2011 [place] [facility] [place]A: Chest DO NOT USE 01/15/2015 M654G / / [id number] [facility] 225-241 - [id number] Implanted:Qty: 1 on 02/15/2011 at [place] [facility] [place] N/A: Chest [employer] 225-241 / / [id number] Sut Steel 6 M654g - [id number] Implanted:Qty: 1 on 02/15/2011 at [place] [facility] [place] N/A: Chest DO NOT USE 07/21/2015 M654G / / [id number] documented as of this encounter Advance Directives Documents on File Type Date Recorded 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
--- OUTSIDE RECORDS SUMMARY | 2024-04-20 22:05 | External Medical Summary | Summary of Care ---
Author Name Unknown Organization [facility] Address [address] [place] [address] Phone [phone] Care Team Providers Care Wood Pattern Maker Name Role Phone Brian Domínguez MD Primary Care Provider +1- [phone] Reason for Visit * Reason Comments eRx-Medication Refill Encounter Details Date Type Department Care Team (Late st Contact Info) Description 04/08/2024 Refill Urology, [facility] [address] [facility] [place] [address] Alfredo Ahmadi MD [address] [place] [address] Allergies Active Allergy Reactions Criticality Noted Date Comments Propoxyphene Hcl Rash Low 10/29/2010 Fentanyl Diarrhea Low 04/26/2010 anxiety Methocarbamol Medium 10/05/2020 Other reaction(s): Delirium Methocarbamol Low 04/15/2007 Zolpidem Low 10/05/2020 Other reaction(s): Confusion documented as of this encounter (statuses as of 04/08/2024) Medications Medication Sig Dispensed Refills Start Date End Date Status venlafaxine XR (EFFEXOR XR) 150 MG [id number]:De pression Take 1 Cap by mouth daily. [...] 11/19/19 18 Active Blood Glucose Monitoring Suppl ([facility] VERIO) w/Device KIT Use as directed. Use as directed. 1 Kit 11/01/19 19 Active Spacer/Aero-Holdin g Chambers WISAM Use with inhaler. Wheezing/bronchiti s. 1 Device 04/08/20 19 Active Lancet Devices (ActionXTOUCH DELICA LANCING DEV) MISC Use four times [...] FOR CONSTIPATION. 510 g 09/22/19 24 Active Gabapentin 300 MG Oral [...] Information Patient not taking.Reported on 03/22/2024 Nystatin 740189 UNIT/GM External Powder (Nystop)Indication s:Candidal intertrigo Apply topically to affected area 3 times a day. Apply to right breast until rash resolved. 30 g 10/16/19 24 Active Nystatin 586257 UNIT/ML Mouth/Throat Suspension SWISH AND SWALLOW 5ML IN THE MORNING AND 5ML AT NOON AND 5 ML IN THE EVENING AND 5ML BEFORE BEDTIME, FOR THRUSH 240 mL 1 10/16/19 24 Active Vitamin D (Ergocalciferol) 1.25 MG (97395 UT) Oral Capsule (Drisdol)Indicatio ns:Vitamin D deficiency [...] long-term current use of insulin ([facility]) Inject 2 mg subcutaneous once per week 3 mL 5 01/01/20 24 Active Xifaxan 550 MG Oral [...] evening 180 Tablet 1 02/09/20 24 Active Levothyroxine Sodium 88 MCG [...] long-term current use of insulin ([facility]) use to test blood sugar [...] EVERY MORNING 90 Capsule 04/08/20 24 Active Tamsulosin HCl 0.4 MG Oral Capsule (Flomax) TAKE 1 CAPSULE BY MOUTH EVERY MORNING 90 Capsule 01/12/20 24 024 Discontinued documented as of this encounter (statuses as of 04/08/2024) Active Problems Problem Noted Date Diagnosed Date [...] encounter 01/06/2023 Coronary artery disease invo lving [place] coronary artery of [place] heart without angina pectoris 11/15/2021 Last Assessment [...] at goal, continue same Urge incontinence 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 therapy [...] as of this encounter (statuses as of 04/08/2024) Immunizations Name Administration Dates Next Due COVID-19 [...] Telephone Encounter - Alfredo Ahmadi MD - 04/08/2024 11:52 AM EDT Signed Prescriptions: Disp Refills Tamsulosin HCl 0.4 MG Oral Capsule (Flomax)90 Cap*0 Sig: TAKE 1 CAPSULE BY MOUTH EVERY MORNING Authorizing Provider: ALFREDO AHMADI * Telephone Encounter - Fani Starr LPN - 04/08/2024 9:19 AM EDTPending Prescriptions: Disp Refills Tamsulosin HCl 0.4 MG Oral Capsule [Pharma*90 Cap*0 Sig: TAKE 1 CAPSULE BY MOUTH EVERY MORNING * Telephone Encounter - Fani Starr LPN - 04/08/2024 9:19 AM EDT Please refill the requested medication(s). Tamsulosin 03/22/2024 (in office), Visit date not found (telemedicine) 04/20/2024 Review of patient's allergies indicates: Allergen Reactions Methocarbamol Other reaction(s): Delirium Darvon [Propoxyphene Hcl] Rash Fentanyl Diarrhea anxiety Robaxin [Methocarbamol] Zolpidem Other reaction(s): Confusion documented in this encounter Plan of Treatment Upcoming Encounters Date Type Department Care Team (Late st Contact Info) Description 04/20/2024 1:30 PM EDT Office Visit Urology, [facility] 132 [facility] [place] [address] Alfredo Ahmadi MD [address] [place] [id number] 04/23/2024 10:30 AM EDT Scheduled Telephone [facility], [facility] Region [address] [facility] [place] [id number] Jesusita Saenz RDN [address] [place] [address] 05/03/2024 2:00 PM EDT Procedure Only Urology, [facility] [address] [address] Alfredo Ahmadi MD [address] [address] 06/08/2024 6:00 PM EST Office Visit [facility] [address] [place] [phone] Brian Domínguez MD [address] [place] [address] 06/23/2024 11:45 AM EST Office Visit Urology, [facility] 132 [facility] [place] [address] Alfredo Ahmadi MD [address] [place] [address] Scheduled Procedures Name Priority Associated Diagnoses Date/Ti me CYSTOURETHROSCOPY Urge incontinence Recurrent UTI Pelvic pain Suprapubic catheter (HCC) 04/08/2024 5:03 PM EDT ASPIRATION OF BLADDER BY INSERTION OF SUPRAPUBIC CATHETER Urge incontinence Recurrent UTI Pelvic pain Suprapubic catheter (HCC) 04/08/2024 5:03 PM EDT COLONOSCOPY FLEXIBLE PROXIMA L DIAGNOSTIC [...] Additional history exists CKD PHOS USE SMARTSET 68145 10/24/202310/05, 02/18/2022, 02/17/2022, Additional history exists COVID-19 [...] COPD 12/30/2024 12/31/2023 CKD HGB USE SMARTSET 90119 02/18/202502/18, 02/19/2024, 12/11/2023, Additional history exists DTap/Tdap [...] this encounter Medical Devices Implanted Type Area Creative/Art Director Device Identifier Shelf Expiration Date Model / Serial / Lot Sut Steel 6 M654g - [id number] Implanted:Qty: 3 on 02/15/2011 at [place] [facility] N/A: Chest DO NOT USE 01/15/2015 M654G / / [id number] Band Magdy 225-241 - [id number] Implanted:Qty: 1 on 02/15/2011 at [place] [facility] N/A: Chest [employer] 225-241 / / [id number] Sut Steel 6 M654g - [id number] Implanted:Qty: 1 on 02/15/2011 at [place] [facility] N/A: Chest DO NOT USE 07/21/2015 M654G / / [id number] documented as of this encounter Advance Directives Documents on File Type Date Recorded 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
--- OUTSIDE RECORDS SUMMARY | 2024-04-20 22:05 | External Medical Summary | Summary of Care ---
Author Name Unknown Organization [facility] Address [address] [place] [address] Phone [phone] Care Team Providers Care Transportation Aide Name Role Phone Brian Domínguez MD Primary Care Provider +1- [phone] Reason for Visit * Reason Onset Date Comments Pre Op Discussion 04/02/2024 Urinary Tract Infection Symptoms 04/02/2024 Encounter Details Date Type Department Care Team (Late st Contact Info) Description 04/02/2024 Telephone Access Center, [facility] [address] [facility] *DO NOT REMOVE THIS DEPARTMENT* [place] [address] Services, Scheduling [address] [place] [address] Pre Op Discussion; Urinary Tract Infection... Allergies Active Allergy Reactions Criticality Noted Date Comments Propoxyphene Hcl Rash Low 10/29/2010 Fentanyl Diarrhea Low 04/26/2010 anxiety Methocarbamol Medium 10/05/2020 Other reaction(s): Delirium Methocarbamol Low 04/15/2007 Zolpidem Low 10/05/2020 Other reaction(s): Confusion documented as of this encounter (statuses as of 04/06/2024) Medications Medication Sig Dispensed Refills Start Date End Date Status venlafaxine XR (EFFEXOR XR) 150 MG ON19Iqnzzfpovil:Dep ression Take 1 Cap by mouth daily. [...] Kit 11/18/2017 Active Blood Glucose Monitoring Suppl ([employer] VERIO) w/Device KIT Use as directed. Use as directed. 1 Kit 10/31/2018 Active Spacer/Aero-Holding Chambers WISAM Use with inhaler. Wheezing/bronchitis . 1 Device 04/08/2019 Active Lancet Devices (OpziTOUCH DELICA LANCING DEV) MISC Use four times [...] Information Patient not taking.Reported on 03/22/2024 Nystatin 902806 UNIT/GM External Powder (Nystop)Indications :Candidal intertrigo Apply topically to affected area 3 times a day. Apply to right breast until rash resolved. 30 g 10/16/2023 Active Nystatin 795576 UNIT/ML Mouth/Throat Suspension SWISH AND SWALLOW 5ML IN THE MORNING AND 5ML AT NOON AND 5 ML IN THE EVENING AND 5ML BEFORE BEDTIME, FOR THRUSH 240 mL 1 10/16/2023 Active Vitamin D (Ergocalciferol) 1.25 MG (47231 UT) Oral Capsule (Drisdol)Indication s:Vitamin D deficiency [...] long-term current use of insulin ([facility]) use to test blood sugar 3 times [...] Oral Tablet (Demadex)Indication s:Atherosclerotic heart disease of [place] coronary artery with [...] encounter 01/06/2023 Coronary artery disease invo lving [place] coronary artery of [place] heart without angina pectoris 11/15/2021 Last Assessment [...] at goal, continue same Urge 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 and ID Acute cystitis without hematuria 03/27/2021 07/08/2022 Pelvic pain 03/27/2021 02/03/2024 Type 2 diabetes mellitus wit h diabetic neuropathy 09/07/2018 11/07/2023 Overview: duplicate Mild protein-calorie malnutrition 05/07/2018 04/29/2019 Diabetes mellitus with neuropathy 05/06/2018 09/07/2018 Other cirrhosis of liver 05/06/2018 Atherosclerotic heart diseas e of [place] coronary [...] stenosis 10/31/2010 08/28/2018 Acute coronary syndrome 10/30/201001/04 [place] Research Other*[id number] 02/02/2010 04/18/2014 Overview: [facility], Dr Joel [...] s 01/20/2024 Does the household have a unm cancer [...] Telephone Encounter - Hue Coates LPN - 04/06/2024 9:45 AM EDT Spoke with pt, aware of below. Recommended irrigating catheter if it is bothersome. Patient voiced understanding, no further questions at this time. * Telephone Encounter - Alfredo Panda MD - 04/05/2024 2:15 PM EDT Urine sample demonstrates contaminant organisms consistent with indwelling Mejia catheter, not consistent with ongoing bacterial UTI. If the patient is being bothered with catheter would recommend initiation of irrigation protocol. Patient is scheduled for replacement of suprapubic tube later this week. JOHANNE Villaseñor * Telephone Encounter - Hue Coates LPN - 04/05/2024 11:[address] Panda Culture results from [facility] scanned in. Please review and advise. Thank you Yudith * Telephone Encounter - Fani Starr LPN - 04/02/2024 4:05 PM EDT Pt daughter picked up supplies, will await results. * Telephone Encounter - Fani Starr LPN - 04/02/2024 3:17 PM EDT Pt returned call to office. She states she does not have supplies at home for urine samples, [facility] they do not carry supplies either. Patient advised if possible merchandise pickup/receiving associate supplies at office. UC supplies placed at check in for merchandise pickup/receiving associate. Patient aware and verbalized understanding of provider recommendations. -Fani Villaseñor LPN * Telephone Encounter - Alfredo Panda MD - 04/02/2024 1:36 PM EDT Await urine culture results prior to consideration of antibiotics. Encourage hydration. Patient canuse yhoi-wve-tiwwimm azo, ibuprofen or Tylenol for urinary discomfort in the meanwhile. JOHANNE Villaseñor * Telephone Encounter - Fani Starr LPN - 04/02/2024 12:20 PM EDT I called and spoke with patient. She states she is experiencing, burning in the bladder/urethra andpain/discomfort. Patient has a temporary mejia in place, until surgery for replacement of SPT on 04/08/24. She states she was in [facility] ED on 03/29/24 and they collected a urine sample at that time. Requesting records, as I do not see urine was sent with ED note. Please advise of further recommendations. Thanks, Fani GARCIA I called [facility], they state patient did not have urine sample collected. Patient verbalized understanding of importance to drop off urine sample before end of today/tomorrow morning. * Telephone Encounter - Andie Escobedo OSA - 04/02/2024 11:54 AM EDT Pt calling requesting to speak to someone prior to her surgery. Pt is concerned she may have a UTI documented in this encounter Plan of Treatment Upcoming Encounters Date Type Department Care Team (Late st Contact Info) Description 04/06/2024 10:15 AM EDT Scheduled Telephone [facility], [facility] [address] [address] [address] Coordinator, [facility] [address] [place] [address] 04/08/2024 4:08 PM EDT Hospital Encounter [facility], Operating Room, [facility] - 4th Floor [address] [place] [address] Alfredo Panda MD [address] [place] [address] 04/08/2024 4:08 PM EDT - 04/08/2024 5:19 PM EDT Surgery OR [facility], Operating Room, [facility] - 4th Floor [address] [place] [address] Alfredo Panda MD [address] [place] [address] CYSTOURETHROSCOPY 04/20/2024 1:30 PM EDT Office Visit Urology, [facility] [address] [facility] [place] [address] Alfredo Panda MD [address] [place] [address] 04/23/2024 10:30 AM EDT Scheduled Telephone [facility], [facility] Region [address] [facility] [place] [address] Jesusita Saenz RDN [address] [facility] [place] [address] 05/03/2024 2:00 PM EDT Procedure Only Urology, [facility] 132 [facility] [place] [address] Alfredo Panda MD [address] [place] [address] 06/08/2024 6:00 PM EST Office Visit [facility] [address] [place] [phone] Brian Domínguez MD [address] [place] [address] 06/23/2024 11:45 AM EST [facility] [address] [facility] [place] [address] Alfredo Panda MD [address] [place] [address] Scheduled Procedures Name Priority Associated Diagnoses Date/Ti [...] Additional history exists CKD PHOS USE SMARTSET 28284 10/24/202310/05, 02/18/2022, 02/17/2022, Additional history exists COVID-19 Vaccine ( season) 2024 06/10/2021, 08/29/2020, 08/01/2020 Colonoscopy 05/20/2024 05/20/2014 Colorectal Cancer Screening 05/20/2024 TSH 06/17/2024 06/17/2023, 05/08, 02/13/2023, Additional history exists GFR 08/21/2024 02/19/2024, 10/05, 08/04/2023, Additional history exists HbA1c 08/21/2024 02/19/2024, 060 12/2023, 10/17/2023, Additional history exists Diabetic Foot Exam 10/15/2024 10/16/2023, 1 07/22/2019, 02/22/2019, Additional history exists Albumin/Creatinine Ratio 11/03/20242 024, 10/23/2022, 07/17/2022, Additional history exists O2 ASSESSMENT COMPLETED IN PAST YEAR FOR COPD 12/30/2024 12/31/2023 CKD HGB USE SMARTSET 74027 02/18/202502/18, 02/19/2024, 12/11/2023, Additional history exists DTap/Tdap [...] this encounter Medical Devices Implanted Type Area Police Superintendent Device Identifier Shelf Expiration Date Model / Serial / Lot Sut Steel 6 M654g - [id number] Implanted:Qty: 3 on 02/15/2011 at [place] [facility] [place] [place] N/A: Chest DO NOT USE 01/15/2015 M654G / / [id number] Band Magdy 225-241 - [id number] Implanted:Qty: 1 on 02/15/2011 at [place] [facility] [place] N/A: Chest [employer] 225-241 / / [id number] Sut Steel 6 M654g - [id number] Implanted:Qty: 1 on 02/15/2011 at [place] [facility] [place] N/A: Chest DO NOT USE 07/21/2015 M654G / / [id number] documented as of this encounter Advance Directives Documents on File Type Date 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
--- OUTSIDE RECORDS SUMMARY | 2024-04-20 22:05 | External Medical Summary | Summary of Care ---
Author Name Unknown Organization [facility] Address [address] [place] [address] Phone [phone] Care Team Providers Care Plc Technician Name Role Phone Brian Domínguez MD Primary Care Provider [phone]- [phone] Reason for Visit * Reason Onset Date Comments Pre Op Discussion 04/02/2024 Urinary Tract Infection Symptoms 04/02/2024 Encounter Details Date Type Department Care Team (Late st Contact Info) Description 04/02/2024 Telephone Access Center, [place] [address] [facility] *DO NOT REMOVE THIS DEPARTMENT* [place] [address] Services, Scheduling [address] [place] [address] Pre Op Discussion; Urinary Tract Infection... Allergies [...] Status venlafaxine XR (EFFEXOR XR) 150 MG [id number]:Dep ression Take 1 Cap by mouth daily. [...] Kit 11/18/2017 Active Blood Glucose Monitoring Suppl (LocalViewUCH VERIO) w/Device KIT Use as directed. Use as directed. 1 Kit 10/31/2018 Active Spacer/Aero-Holding Chambers WISAM Use with inhaler. Wheezing/bronchitis . 1 Device 04/08/2019 Active Lancet Devices (FrontoTOUCH DELICA LANCING DEV) MISC Use four times [...] Information Patient not taking.Reported on 03/22/2024 Nystatin 653359 UNIT/GM External Powder (Nystop)Indications :Candidal intertrigo Apply topically to affected area 3 times a day. Apply to right breast until rash resolved. 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 (Household - for ages [...] replacement of suprapubic tube later this week. Thanks, HM * Telephone Encounter - Hue Coates LPN - 04/05/2024 11:[address] Panda Culture results from [facility] scanned in. Please review and advise. Thank you Yudith * Telephone Encounter - Fani Starr LPN - 04/02/2024 4:05 PM EDT Pt daughter picked up supplies, will await results. * Telephone Encounter - Fani Starr LPN - 04/02/2024 3:17 PM EDT Pt returned call to office. She states she does not have supplies at home for urine samples, [facility], they do not carry supplies either. Patient advised if possible machine operator hop picker supplies at office. UC supplies placed at check in for machine operator hop picker. Patient aware and verbalized understanding of provider recommendations. -Fani Villaseñor LPN * Telephone Encounter - Alfredo Panda MD - 04/02/2024 1:36 PM EDT Await urine culture results prior to consideration of antibiotics. Encourage hydration. Patient canuse zcij-scm-nokwoee azo, ibuprofen or Tylenol for urinary discomfort in the meanwhile. Charleen, JOHANNE * Telephone Encounter - Fani Starr LPN - 04/02/2024 12:20 PM EDT I called and spoke with patient. She states she is experiencing, burning in the bladder/urethra andpain/discomfort. Patient has a temporary mejia in place, until surgery for replacement of SPT on 04/08/24. She states she was in [facility] ED on 03/29/24 and they collected a urine sample at that time. Requesting records, as I do not see urine was sent with ED note. Please advise of further recommendations. Fani Villaseñor LPN I called [facility], they state patient did not have [...] AM EDT Scheduled Telephone [facility], [facility] [address] [place] [address] Coordinator, [facility] [address] [place] [address] 04/08/2024 4:08 PM EDT Hospital Encounter OR [facility], Operating Room, [facility] - 4th Floor [address] [place] [address] Alfredo Panda MD [address] [address] 04/08/2024 4:08 PM EDT - 04/08/2024 5:19 PM EDT Surgery OR [facility], Operating Room, [facility] - 4th Floor [address] [place] [address] Alfredo Panda MD [address] [address] CYSTOURETHROSCOPY 04/20/2024 1:30 PM EDT Office Visit Urology, [facility] [address] [place] [address] Alfredo Panda MD [address] [address] 04/23/2024 10:30 AM EDT Scheduled Telephone [facility], [place] [address] [facility] [place] [address] Letty Jesusita Devine, RDN [address] [facility] [place] [address] 05/03/2024 2:00 PM EDT Procedure Only Urology, [facility] [address] [place] [address] Alfredo Panda MD [address] [address] 06/08/2024 6:00 PM EST Office Visit [facility] [address] [place] [id number] Brian Domínguez MD [address] [place] [address] 06/23/2024 11:45 AM EST Office Visit Urology, [facility] [address] [place] [address] Alfredo Panda MD [address] [address] Scheduled Procedures Name Priority Associated Diagnoses Date/Ti me CYSTOURETHROSCOPY Urge incontinence Recurrent UTI Pelvic pain Suprapubic catheter (HCC) 04/08/2024 4:08 PM EDT ASPIRATION OF BLADDER BY INSERTION OF SUPRAPUBIC CATHETER Urge incontinence Recurrent UTI Pelvic pain Suprapubic catheter ([facility]) 04/08/2024 4:08 PM EDT COLONOSCOPY FLEXIBLE PROXIMA [...] Additional history exists CKD PHOS USE SMARTSET 19275 10/24/202310/05, 02/18/2022, 02/17/2022, Additional history exists COVID-19 Vaccine ( season) 2024 06/10/2021, 08/29/2020, 08/01/2020 Colonoscopy 05/20/2024 05/20/2014 Colorectal Cancer Screening 05/20/2024 TSH 06/17/2024 06/17/2023, 05/08, 02/13/2023, Additional history exists GFR 08/21/2024 02/19/2024, 10/05, 08/04/2023, Additional history exists HbA1c 08/21/2024 02/19/2024, 0612/2023, 10/17/2023, Additional history exists Diabetic Foot Exam 10/15/2024 10/16/2023, 1 07/22/2019, 02/22/2019, Additional history exists Albumin/Creatinine Ratio 11/03/2024 024, 10/23/2022, 07/17/2022, Additional history exists O2 ASSESSMENT COMPLETED IN PAST YEAR FOR COPD 12/30/2024 12/31/2023 CKD HGB USE SMARTSET 93431 02/18/202502/18, 02/19/2024, 12/11/2023, Additional history exists DTap/Tdap [...] this encounter Medical Devices Implanted Type Area Institutional Research Director Device Identifier Shelf Expiration Date Model / Serial / Lot Sut Steel 6 M654g - [id number] Implanted:Qty: 3 on 02/15/2011 at OR [facility] N/A: Chest DO NOT USE 01/15/2015 M654G / / [id number] Band Magdy 225-241 - [id number] Implanted:Qty: 1 on 02/15/2011 at OR [facility] N/A: Chest [employer] 225-241 / / [id number] Sut Steel 6 M654g - [id number] Implanted:Qty: 1 on 02/15/2011 at OR [facility] N/A: Chest DO NOT USE 07/21/2015 M654G / / [id number] documented as of this encounter Advance Directives Documents on File Type Date Recorded Patient Customer Support Associate Expl anation POLST 05/06/2018 POLST * [...] Adult Child Health Care Agent Care Teams Plc Technician Relationship Specialty Start Date End Date Brian Domínguez MD [address] [facility] [place] [address] PCP - General Family Medicine 07/16/17 documented as of this encounter
--- OUTSIDE RECORDS SUMMARY | 2024-04-20 22:06 | External Medical Summary | Summary of Care ---
Author Name Unknown Organization [facility] Address [address] [facility] [place] [address] Phone [phone] Care Team Providers Care Fight Manager Name Role Phone Brian Domínguez MD Primary Care Provider [phone]- [phone] Reason for Visit * Reason Onset Date Comments [facility]: Maintenance 04/05/2024 Encounter Details Date Type Department Care Team (Late st Contact Info) Description 04/05/2024 11:45 AM EDT Scheduled Telephone [facility], [facility] [address] [place] [address] Coordinator, [facility] [address] [place] [address] Allergies Active Allergy Reactions Criticality Noted Date Comments Propoxyphene Hcl Rash Low 10/29/2010 Fentanyl Diarrhea Low 04/26/2010 anxiety Methocarbamol Medium 10/05/2020 Other reaction(s): Delirium Methocarbamol Low 04/15/2007 Zolpidem Low 10/05/2020 Other reaction(s): Confusion documented as of this encounter (statuses as of 04/05/2024) Medications Medication Sig Dispensed Refills Start Date End Date Status venlafaxine XR (EFFEXOR XR) 150 MG NN18Khalepnfuof:Dep ression Take 1 Cap by mouth daily. [...] Kit 11/18/2017 Active Blood Glucose Monitoring Suppl (Skipo VERIO) w/Device KIT Use as directed. Use as directed. 1 Kit 10/31/2018 Active Spacer/Aero-Holding Chambers WISAM Use with inhaler. Wheezing/bronchitis . 1 Device 04/08/2019 Active Lancet Devices (IM5TOUCH DELICA LANCING DEV) MISC Use four times [...] Information Patient not taking.Reported on 03/22/2024 Nystatin 356414 UNIT/GM External Powder (Nystop)Indications :Candidal intertrigo Apply topically to affected area 3 times a day. Apply to right breast until rash resolved. 30 g 10/16/2023 Active Nystatin 835807 UNIT/ML Mouth/Throat Suspension SWISH AND SWALLOW 5ML IN THE MORNING AND 5ML AT NOON AND 5 ML IN THE EVENING AND 5ML BEFORE BEDTIME, FOR THRUSH 240 mL 1 10/16/2023 Active Vitamin D (Ergocalciferol) 1.25 MG (35436 UT) Oral Capsule (Drisdol)Indication s:Vitamin D deficiency [...] Oral Tablet (Demadex)Indication s:Atherosclerotic heart disease of [place] coronary artery with other forms of angina [...] encounter 01/06/2023 Coronary artery disease invo lving [place] coronary artery of [place] heart without angina pectoris 11/15/2021 Last Assessment [...] at goal, continue same Urge incontinence 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 Pt also to see uro-tunnel elastic operator chainstitch and ID Acute cystitis without hematuria 03/27/2021 07/08/2022 Pelvic pain 03/27/2021 02/03/2024 Type 2 diabetes mellitus wit h diabetic neuropathy 09/07/2018 11/07/2023 Overview: duplicate Mild protein-calorie malnutrition 05/07/2018 04/29/2019 Diabetes mellitus with neuropathy 05/06/2018 09/07/2018 Other cirrhosis of liver 05/06/2018 Atherosclerotic heart diseas e of [place] coronary artery with other forms of angina [...] stenosis 10/31/2010 08/28/2018 Acute coronary syndrome 10/30/201001/04 [place] Research Other*[id number] 02/02/2010 04/18/2014 Overview: Karen Registry, Dr Joel [...] s 01/20/2024 Does the household have a [facility] source [facility] income? (Household - for ages [...] [facility] Telephonic Nurse Follow-Up Call [facility] Subprogram: Focused Care Management (3-9 months) [...] up call scheduled for tomorrow with RADHA MarrufoEnvironmental Monitoring Technician Future Visits Scheduled: Future Appointments-next 60 days Date/Time Provider Specialty Dept Phone 04/06/2024 10:15 AM Coordinator, Sebas Marrufo [facility] [phone] 04/20/2024 1:30 PM (Arrive by 1:15 PM) Alfredo Panda MD Urology [phone] 04/23/2024 10:30 AM Jesusita Saenz RDN [facility] [phone] 05/03/2024 2:00 PM (Arrive by 1:45 PM) Alfredo Panda MD Urology [phone] 06/08/2024 6:00 PM (Arrive by 5:45 PM) Brian Domínguez MD Family Medicine [phone] 06/23/2024 11:45 AM (Arrive by 11:30 AM) Alfredo Panda MD Urology [phone] Andie Francois RN documented in this encounter Plan of Treatment Upcoming Encounters Date Type Department Care Team (Late st Contact Info) Description 04/06/2024 10:15 AM EDT Scheduled Telephone [facility], [facility] [address] [address] Coordinator, Sebas Marrufo [address] [address] 04/08/2024 4:08 PM EDT Hospital Encounter OR [facility], Operating Room, [facility] - 4th Floor [address] [place] [address] Alfredo Panda MD [address] [address] 04/08/2024 4:08 PM EDT - 04/08/2024 5:19 PM EDT Surgery OR [facility], Operating Room, [facility] - 4th Floor [address] [place] [address] Alfredo Panda MD [address] [address] CYSTOURETHROSCOPY 04/20/2024 1:30 PM EDT Office Visit Urology, [facility] [address] [facility] [place] [address] Alfredo Panda MD [address] [address] 04/23/2024 10:30 AM EDT Scheduled Telephone [facility], [facility] [address] [facility] [address] Jesusita Saenz RDN [address] [facility] [place] [address] 05/03/2024 2:00 PM EDT Procedure Only Urology, [facility] [place] [address] Alfredo Panda MD [address] [address] 06/08/2024 6:00 PM EST Office Visit [address] [id number] Brian Domínguez MD [address] [place] [address] 06/23/2024 11:45 AM EST Office Visit Urology, [facility] [address] [facility] [place] [address] Alfredo Panda MD [address] [facility] [place] [address] Scheduled Procedures Name Priority Associated Diagnoses Date/Ti [...] Additional history exists CKD PHOS USE SMARTSET 19936 10/24/202310/05, 02/18/2022, 02/17/2022, Additional history exists COVID-19 [...] COPD 12/30/2024 12/31/2023 CKD HGB USE SMARTSET 73528 02/18/202502/18, 02/19/2024, 12/11/2023, Additional history exists DTap/Tdap [...] this encounter Medical Devices Implanted Type Area Mill Laborer Device Identifier Shelf Expiration Date Model / Serial / Lot Sut Steel 6 M654g - [id number] Implanted:Qty: 3 on 02/15/2011 at OR [facility] N/A: Chest DO NOT USE 01/15/2015 M654G / / [id number] Band Magdy 225-937 - [id number] Implanted:Qty: 1 on 02/15/2011 at OR [facility] N/A: Chest [employer] 225-241 / / [id number] Sut Steel 6 M654g - [id number] Implanted:Qty: 1 on 02/15/2011 at OR [facility] N/A: Chest DO NOT USE 07/21/2015 M654G / / [id number] documented as of this encounter Advance Directives Documents on File Type Date Recorded Patient Senior Principal Architect Jose luna POL 05/06/2018 POLST * Full [...] Adult Child Health Care Agent Care Teams Fight Manager Relationship Specialty Start Date End Date Brian Domínguez MD [address] [place] [address] PCP - General Family Medicine 07/16/17 documented as of this encounter
--- OUTSIDE RECORDS SUMMARY | 2024-04-20 22:06 | External Medical Summary | Summary of Care ---
Author Name Unknown Organization [facility] Address [address] [place] [address] Phone [phone] Care Team Providers Care Professional Skater Name Role Phone Brian Domínguez MD Primary Care Provider [phone]- [phone] Reason for Visit * Reason Onset Date Comments Pre Op Discussion 04/02/2024 Urinary Tract Infection Symptoms 04/02/2024 Encounter Details Date Type Department Care Team (Late st Contact Info) Description 04/02/2024 Telephone Access Center, [place] [facility] [address] [facility] *DO NOT REMOVE THIS DEPARTMENT* [place] [address] Services, Scheduling [address] [place] [address] Pre Op Discussion; Urinary Tract Infection... Allergies [...] Status venlafaxine XR (EFFEXOR XR) 150 MG [id number]:Dep ression Take 1 Cap by mouth daily. [...] Kit 11/18/2017 Active Blood Glucose Monitoring Suppl (NanoDynamicsUCH VERIO) w/Device KIT Use as directed. Use as directed. 1 Kit 10/31/2018 Active Spacer/Aero-Holding Chambers WISAM Use with inhaler. Wheezing/bronchitis . 1 Device 04/08/2019 Active Lancet Devices (KriyariTOUCH DELICA LANCING DEV) MISC Use four times [...] Information Patient not taking.Reported on 03/22/2024 Nystatin 550580 UNIT/GM External Powder (Nystop)Indications :Candidal intertrigo Apply topically to affected area 3 times a day. Apply to right breast until rash resolved. 30 g 10/16/2023 Active Nystatin 604789 UNIT/ML Mouth/Throat Suspension SWISH AND SWALLOW 5ML IN THE MORNING AND 5ML AT NOON AND 5 ML IN THE EVENING AND 5ML BEFORE BEDTIME, FOR THRUSH 240 mL 1 10/16/2023 Active Vitamin D (Ergocalciferol) 1.25 MG (88527 UT) Oral Capsule (Drisdol)Indication s:Vitamin D deficiency [...] current use of insulin ([facility]) use to test blood sugar [...] encounter 01/06/2023 Coronary artery disease invo lving [place] coronary artery of [place] heart without angina pectoris 11/15/2021 Last Assessment [...] at goal, continue same Urge incontinence 03/27/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 Pt also to see uro-life skills trainer and ID Acute cystitis without hematuria 03/27/2021 07/08/2022 Pelvic pain 03/27/2021 02/03/2024 Type 2 diabetes mellitus wit h diabetic neuropathy 09/07/2018 11/07/2023 Overview: duplicate Mild protein-calorie malnutrition 05/07/2018 04/29/2019 Diabetes mellitus with neuropathy 05/06/2018 09/07/2018 Other cirrhosis of liver 05/06/2018 Atherosclerotic heart diseas e of [place] [...] stenosis 10/31/2010 08/28/2018 Acute coronary syndrome 10/30/201001/04 [employer] Other*[id number] 02/02/2010 04/18/2014 Overview: Karen Registry, Dr Joel [...] s 01/20/2024 Does the household have a carrie tingley hospitallar source of income? (Household [...] AM EDT Dr Panda Culture results from [facility] scanned in. Please review and advise. Thank you Yudith * Telephone Encounter - Fani Starr LPN - 04/02/2024 4:05 PM EDT Pt daughter picked up supplies, will await results. * Telephone Encounter - Fani Starr LPN - 04/02/2024 3:17 PM EDT Pt returned call to office. She states she does not have supplies at home for urine samples, calledH to see if they can collect sample, they do not carry supplies either. Patient advised if possible supervisor opening and picking supplies at office. UC supplies placed at check in for supervisor opening and picking. Patient aware and verbalized understanding of provider recommendations. -Fani Villaseñor LPN * Telephone Encounter - Alfredo Panda MD - 04/02/2024 1:36 PM EDT Await urine culture results prior to consideration of antibiotics. Encourage hydration. Patient canuse adyw-poj-znzwtie azo, ibuprofen or Tylenol for urinary discomfort in the meanwhile. Charleen, JOHANNE * Telephone Encounter - Fani Starr LPN - 04/02/2024 12:20 PM EDT I called and spoke with patient. She states she is experiencing, burning in the bladder/urethra andpain/discomfort. Patient has a temporary mejia in place, until surgery for replacement of SPT on 04/08/24. She states she was in [facility] ED on 03/29/24 and they collected a urine sample at that time. Requesting records, as I do not see urine was sent with ED note. Please advise of further recommendations. Fani Villaseñor LPN I called [facility], they state patient did not have [...] AM EDT Scheduled Telephone [facility], [facility] [address] [address] Coordinator, [facility] [address] [place] [address] 04/06/2024 10:15 AM EDT Scheduled Telephone [facility], [facility] [address] [place] [address] Coordinator, [facility] [place] [address] 04/08/2024 4:08 PM EDT Hospital Encounter OR [facility], Operating Room, [facility] - 4th Floor [address] [place] [address] Alfredo Panda MD [address] [address] 04/08/2024 4:08 PM EDT - 04/08/2024 5:19 PM EDT Surgery OR [facility], Operating Room, [facility] - 4th Floor [address] [place] [address] Alfredo Panda MD [address] [address] CYSTOURETHROSCOPY 04/20/2024 1:30 PM EDT Office Visit Urology, [facility] [address] [address] Alfredo Panda MD [address] [address] 04/23/2024 10:30 AM EDT Scheduled Telephone [facility], [facility] [address] [facility] [place] [address] Jesusita Saenz, RDN [address] [facility] [place] [address] 05/03/2024 2:00 PM EDT Procedure Only Urology, [facility] [address] [place] [place] [address] Alfredo Panda MD [address] [address] 06/08/2024 6:00 PM EST Office Visit [facility] [address] [place] [address] Brian Domínguez MD [address] [place] [address] 06/23/2024 11:45 AM EST Office Visit Urology, [facility] [address] [facility] [place] [address] Alfredo Panda MD [address] [address] Scheduled Procedures Name Priority Associated Diagnoses Date/Ti [...] Additional history exists CKD PHOS USE SMARTSET 85685 10/24/202310/05, 02/18/2022, 02/17/2022, Additional history exists COVID-19 Vaccine ( season) 2024 06/10/2021, 08/29/2020, 08/01/2020 Colonoscopy 05/20/2024 05/20/2014 Colorectal Cancer Screening 05/20/2024 TSH 06/17/2024 06/17/2023, 05/08, 02/13/2023, Additional history exists GFR 08/21/2024 02/19/2024, 10/05, 08/04/2023, Additional history exists HbA1c 08/21/2024 02/19/2024, 12/2023, 10/17/2023, Additional history exists Diabetic Foot Exam 10/15/2024 10/16/2023, 1 07/22/2019, 02/22/2019, Additional history exists Albumin/Creatinine Ratio 11/03/2024 024, 10/23/2022, 07/17/2022, Additional history exists O2 ASSESSMENT COMPLETED IN PAST YEAR FOR COPD 12/30/2024 12/31/2023 CKD HGB USE SMARTSET 29545 02/18/202502/18, 02/19/2024, 12/11/2023, Additional history exists DTap/Tdap [...] this encounter Medical Devices Implanted Type Area Finish Machine Tender Device Identifier Shelf Expiration Date Model / Serial / Lot Jenna Steel 6 M654g - [id number] Implanted:Qty: 3 on 02/15/2011 at OR [facility] N/A: Chest DO NOT USE 01/15/2015 M654G / / [id number] Band Magdy 225-241 - [id number] Implanted:Qty: 1 on 02/15/2011 at OR [facility] N/A: Chest [employer] 225-241 / / [id number] Sut Steel 6 M654g - [id number] Implanted:Qty: 1 on 02/15/2011 at OR [facility] N/A: Chest DO NOT USE 07/21/2015 M654G / / [id number] documented as of this encounter Advance Directives Documents on File Type Date Recorded Patient Licensed 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
[2024-04-21] MEDS: ACETAMINOPHEN 325 MG TAB PO STA (06:19)
[2024-04-21] MEDS: LEVOTHYROXINE SODIUM 88 MCG TABLET PO SCH (06:20)
[2024-04-21 06:27] LABS: Hematocrit (blood only) 32.9 % (37.0-47.0); Hemoglobin 10.9 g/dl (12.0-16.0); Mean Corpuscular Hemoglobin 27.2 pg (25.0-34.0); Mean Corpuscular Hgb Conc 33.1 g/dL (32.0-36.0); Platelet Count 91 K/uL (130-400); RDW Standard Deviation 45.3 fL (36.4-46.3); Red Blood Count 4.01 M/uL (4.20-5.40); White Blood Count 14.01 K/ul (4.8-10.8)
[2024-04-21 06:47] LABS: Albumin Globulin Ratio 1.2 (0.9-2); Albumin Level 3.3 gm/dl (3.4-5.0); BUN Creatinine Ratio 11.5 (10-20); Bilirubin,Total 0.6 mg/dl (0.2-1.0); Calcium 8.8 mg/dl (8.6-10.3); Creatinine Clr Calc Pharmacy 56.3 ml/min; Globulin 2.7 gm/dl (2.5-4.0); Magnesium 2.2 mg/dl (1.7-2.4); Phosphorus 3.8 mg/dl (2.5-4.9)
[2024-04-21 06:53] LABS: Troponin I High Sensitivity 11.4 pg/ml (0-14)
[2024-04-21] MEDS: FLUTICASONE/VILANTEROL 100/25MCG 14 PUFFS/INHALER INH SCH (08:01)
[2024-04-21] MEDS: FLUTICASONE PROPIONATE NA SPR 16 GM BTL SCH (08:02)
[2024-04-21] MEDS: methylPREDNISolone 40 MG in SYRINGE 0 ML IV SCH (08:03)
[2024-04-21] MEDS: VENLAFAXINE HCL XR 150 MG CAPXR PO SCH (08:04)
[2024-04-21] MEDS: OXYBUTYNIN CHLORIDE XL 5 MG TABCR PO SCH (08:04)
[2024-04-21] MEDS: TORSEMIDE 20 MG TAB PO SCH (08:04)
[2024-04-21] MEDS: lamoTRIgine 25 MG TAB PO SCH (08:05)
[2024-04-21] MEDS: MAGNESIUM OXIDE 400 MG TAB PO SCH (08:05)
[2024-04-21] MEDS: MONTELUKAST SODIUM 10 MG TABLET PO SCH (08:05)
[2024-04-21] MEDS: CALCIUM 600MG + VIT D 400 IU TAB PO SCH (08:05)
[2024-04-21] MEDS: lamoTRIgine 100 MG TAB PO SCH (08:05)
[2024-04-21] MEDS: FAMOTIDINE 20 MG TAB PO SCH (08:05)
[2024-04-21] MEDS: ASPIRIN 81 MG ECTAB PO SCH (08:05)
[2024-04-21] MEDS: ATORVASTATIN 40 MG TAB PO SCH (08:06)
[2024-04-21] MEDS: VENLAFAXINE HCL XR 75 MG CAPXR PO SCH (08:06)
[2024-04-21] MEDS: ARIPIprazole 1 MG/ML ORAL SOLN 150 ML BTL PO SCH (08:06)
[2024-04-21] MEDS: TAMSULOSIN HCL 0.4 MG CAP PO SCH (08:06)
--- OUTSIDE RECORDS SUMMARY | 2024-04-21 08:06 | External Medical Summary | Summary of Care ---
Author Name Unknown Organization [facility] Address [address] [place] [address] Phone [phone] Care Team Providers Care Squad Boss Name Role Phone Brian Domínguez MD Primary Care Provider +1- [phone] Reason for Visit * Reason Onset Date Comments Advice 04/20/2024 Lmtcb 04/20 Appointment 04/20/2024 Encounter Details Date Type Department Care Team (Late st Contact Info) Description 04/20/2024 Telephone Urology, [facility] [address] [place] [address] Services, Scheduling [address] [place] [address] Advice ([facility] Appointment Allergies Active Allergy Reactions Criticality Noted Date Comments Propoxyphene Hcl Rash Low 10/29/2010 Fentanyl Diarrhea Low 04/26/2010 anxiety Methocarbamol Medium 10/05/2020 Other reaction(s): Delirium Methocarbamol Low 04/15/2007 Zolpidem Low 10/05/2020 Other reaction(s): Confusion documented as of this encounter (statuses as of 04/20/2024) Medications Medication Sig Dispensed Refills Start Date End Date Status venlafaxine XR (EFFEXOR XR) 150 MG [id number]:Dep ression Take 1 Cap by mouth daily. [...] Kit 11/18/2017 Active Blood Glucose Monitoring Suppl (PureSignCoUCH VERIO) w/Device KIT Use as directed. Use [...] as directed 18 g 3 11/07/2022 Active Budesonide-Formoter ol Fumarate 160-4.5 MCG/ACT Inhalation [...] Information Patient not taking.Reported on 03/22/2024 Nystatin 790411 UNIT/GM External Powder (Nystop)Indications :Candidal intertrigo Apply topically to affected area 3 times a day. Apply to right breast until rash resolved. 30 g 10/16/2023 Active Nystatin 606758 UNIT/ML Mouth/Throat Suspension SWISH AND SWALLOW 5ML IN THE MORNING AND 5ML AT NOON AND 5 ML IN THE EVENING AND 5ML BEFORE BEDTIME, FOR THRUSH 240 mL 1 10/16/2023 Active Vitamin D (Ergocalciferol) 1.25 MG (67360 UT) Oral Capsule (Drisdol)Indication s:Vitamin D deficiency TAKE 1 CAPSULE BY MOUTH ONCE WEEKLY 12 Capsule 3 11/10/2023 Active Insulin Glargine Solostar 100 UNIT/ML Subcutaneous Solution Pen-injector (Lantus SoloStar)Indication s:Type 2 diabetes mellitus with stage 3a chronic kidney disease, with long-term current use of insulin ([facility]) Inject 35 units subcutaneously twice [...] Oral Tablet (Demadex)Indication s:Atherosclerotic heart disease of [place] coronary artery with other forms of angina pectoris (HCC),Hypertensive heart disease with chronic diastolic congestive heart failure (HCC) TAKE 1 TABLET BY MOUTH EVERY MORNING - may take an additional tablet if needed for swelling 90 Tablet 03/31/2024 Active Venlafaxine HCl 100 MG Oral [...] Tablet before bedtime. 8 Tablet 04/08/2024 Active Dicyclomine HCl 10 MG Oral Capsule (Bentyl)Indications :Abdominal pain TAKE 1 CAPSULE BY MOUTH FOUR TIMES DAILY NEEDED for abdominal 120 Capsule 04/14/2024 Active documented as of this encounter (statuses as of 04/20/2024) Active Problems Problem Noted Date Diagnosed Date [...] encounter 01/06/2023 Coronary artery disease invo lving [place] coronary artery of [place] heart without angina pectoris 11/15/2021 Last Assessment [...] at goal, continue same Urge incontinence 03/27/2021 [facility] [...] 05/04/2004 Overview: Updated due to amp error Hhtwhez-Cwxkz-Wlalb disease 12/31/2002 Last Assessment & Plan: Frequent falls Home PT and OT continue GONZALEZ (nonalcoholic steatohepatitis) documented as of this encounter (statuses as of 04/20/2024) Resolved Problems Problem Noted Date Diagnosed Date [...] is giving this. Pt also to see uro-svp of digital and ID Acute cystitis without hematuria 03/27/2021 07/08/2022 Pelvic pain 03/27/2021 02/03/2024 Type 2 diabetes mellitus wit h diabetic neuropathy 09/07/2018 11/07/2023 Overview: duplicate Mild protein-calorie malnutrition 05/07/2018 04/29/2019 Diabetes mellitus with neuropathy 05/06/2018 09/07/2018 Other cirrhosis of liver 05/06/2018 Atherosclerotic heart diseas e of [place] coronary artery with other forms [...] stenosis 10/31/2010 08/28/2018 Acute coronary syndrome 10/30/201001/04 [employer] Other*[id number] 02/02/2010 04/18/2014 Overview: Karen Registry, Dr Joel [...] as of this encounter (statuses as of 04/20/2024) Immunizations Name Administration Dates Next Due COVID-19 [...] Telephone Encounter - Hue Coates LPN - 04/20/2024 11:[address] Panda, if patient is doing well from a postoperative standpoint, appt is not needed. LMTCB. * Telephone Encounter - Tona Vines OSA - 04/20/2024 11:10 AM EDT Pt's daughter called pt is running a fever, has chills and tested positive for Covid she thinks itsbest that she reschedules the Post Op appointment unless the doctor thinks she should come in and can be reached at [phone] documented in this encounter Plan of Treatment Upcoming Encounters Date Type Department Care Team (Late st Contact Info) Description 04/20/2024 1:30 PM EDT Office Visit Urology, [facility] [address] [facility] [place] [address] Alfredo Panda MD [address] [address] 04/23/2024 10:30 AM EDT Scheduled Telephone [facility], [facility] [address] [facility] [place] [address] Jesusita Saenz, RDN [address] [facility] [place] [address] 05/03/2024 2:00 PM EDT Procedure Only Urology, [facility] [address] [facility] [place] [address] Alfredo Panda MD [address] [address] 06/08/2024 6:00 PM EST Office Visit [facility] [address] [place] [id number] Brian Domínguez MD [address] [place] [address] 06/23/2024 11:45 AM EST Office Visit Urology, [facility] [address] [facility] [place] [address] Alfredo Panda MD [address] [address] Scheduled Procedures Name Priority Associated Diagnoses Date/Ti [...] Additional history exists CKD PHOS USE SMARTSET 75057 10/24/202310/05, 02/18/2022, 02/17/2022, Additional history exists COVID-19 [...] Additional history exists CKD HGB USE SMARTSET 94379 02/18/202502/18, 02/19/2024, 12/11/2023, Additional history exists O2 [...] this encounter Medical Devices Implanted Type Area Technical Illustrator Device Identifier Shelf Expiration Date Model / Serial / Lot Sut Steel 6 M654g - [id number] Implanted:Qty: 3 on 02/15/2011 at OR [facility] N/A: Chest DO NOT USE 01/15/2015 M654G / / [id number] Band Magdy 225-241 - [id number] Implanted:Qty: 1 on 02/15/2011 at OR [facility] N/A: Chest [employer] 225-241 / / [id number] Sut Steel 6 M654g - [id number] Implanted:Qty: 1 on 02/15/2011 at OR [facility] N/A: Chest DO NOT USE 07/21/2015 M654G / / [id number] documented as of this encounter Advance Directives Documents on File Type Date Recorded Patient Customs Compliance Analyst Expl anation POLST 05/06/2018 POLST * [...] Agent [facility] p Communication Carolyn Ballard Adult Child Health Care Agent Care Teams Squad Boss Relationship Specialty Start Date End Date Brian Domínguez MD [address] [place] [address] PCP - General Family Medicine 07/16/17 documented as of this encounter
[2024-04-21] MEDS ORDERED: methylPREDNISolone 125 MG/2 ML VIAL IV SCH (09:00)
--- NOTE | 2024-04-21 09:24 | Pharmacy Report ---
Pharmacy Glycemic Short Note 2 - Date of Service April 21, 2024 - Glycemic Short BSG Results (Last 24 hours): 04/20/24 04/20/24 04/21/24 13:10 19:53 05:36 Glucose 127 H 136 H POC Glucose 93 04/21/24 08:35 Glucose POC Glucose 140 H OUTPATIENT ANTIDIABETIC REGIMEN: * Lantus 35 units SC BID * Metformin 500 mg PO daily w/ dinner * Ozempic 2 mg SC weekly HbA1c: 6% (02/28/24) ASSESSMENT: * CD is a 73 year old female admitted for evaluation of altered mental status and acute respiratory failure * Patient received 6 mg IV dexamethasone last evening and ordered meth ylprednisolone 40 mg IV daily starting today (04/21) * Blood sugars reasonably well-controlled thus far - current dosing equates to ~weight-based stress of 2 regimen * 185 mg/dL at lunch - will tighten carb ratio further PLAN FOR INPATIENT GLYCEMIC CONTROL: * Hold outpatient oral diabetes medications * Basal insulin * Lantus 20 units SQ this AM * Lantus 10-15-20 units SC HS (see EHR for details) * Reassess in AM * Bolus insulin * NovoLog per scale ACHS or Q6hrs while NPO * Goal Range: Low 110 mg/dL - High 160 mg/dL * Correction Factor: 20 mg/dL/unit * Nutritional / Prandial insulin per carb ratio of 1 unit per 5 grams CHO consumed
--- NOTE | 2024-04-21 10:49 | Hospitalist Progress Note ---
Date of Service April 21, 2024 Assessment & Plan (1) Altered mental status: (2) Acute hypoxic respiratory failure: Plan Angelina Ballard is a 73y/o F with PMHx significant for dyslipidemia, hypothyroidism, DM type II [on long-term insulin therapy], diabetic neuropathy, diabetic gastroparesis, CKD stage III, COPD, HTN, chronic diastolic congestive heart failure, moderate aortic stenosis, CAD, chronic liver disease and cirrhosis, portal hypertensive gastropathy, GERD, GONZALEZ/fatty liver, urinary incontinence [suprapubic catheter in place], Wrwtesh-Bkiis-Intil disease and bipolar disorder who presented to the ED via EMS from [facility] for evaluation secondary to SOB, generalized weakness and altered mental status. Acute Metabolic/toxic Encephalopathy patient with acute altered mental status on admission Per Daughter, Carolyn, pt did not even recognize her Head CT negative Ammonia level normal in setting of pt's known hx of cirrhosis likely altered in the setting of acute infection Delirium precautions. Frequent reorientation, avoid sedating medications continue to monitor Acute Hypoxic Respiratory Failure Sepsis Pneumonia Patient hypoxic at 88% SpO2 in ED. patient also having leukocytosis on arrival as well as fevers on admission with likely pulmonary infectious source respiratory panel negative ProCal was normal vbg with slight elevation of pCO2 MRSA nares negative Chest x-ray was concerning for possible pneumonia versus inflammatory process CT chest noting "Possible small region of tree-in-bud infiltrate in the posterior right upper lobe (series 6, image 21), potentially pneumoniti s/pneumonia." S/p 6mg IV dexamethasone in the ED. Continue po doxycycline + IV Rocephin in the ED Was on 40mg IV Solu-Medrol daily, transition to p.o. prednisone Pulmonary toilet with scheduled nebs, incentive spirometry and flutter valve Wean off oxygen as tolerated, pt currently off oxygen Continue to monitor Elevated Troponin Level Likely Demand Ischemia Chest Pain Troponin elevated on admission with downtrend EKG without acute ischemia Likely elevated in setting of acute infection and continue to monitor on telemetry EKGs as needed for chest pain. Hypomagnesemia Mag 1.5 on presentation. Replete as needed Urinary Incontinence, Suprapubic Catheter POA: Patient follows closely with [facility], Dr. Alfredo Panda. She recently had her suprapubic catheter exchanged on 04/08/2024. UA without evidence of bacteria Continue home oxybutynin and Flomax. Chronic Liver Disease and Cirrhosis, GONZALEZ: Stable, no evidence of acute encephalopathy. Ammonia 33 as per above. Continue home lactulose and Xifaxan. Licqgks-Pnlxl-Fmpls Disease: Has foot drop at baseline, wears BLE braces. DM Type II: Hold home agents, basal/bolus insulin regimen while inpatient. BSG checks ACHS. Hgb A1c was 6.0% on 03/03/2024. Glycemic pharmacy consulted. Chronic Diastolic Congestive Heart Failure, HTN & CAD: Most recent echocardiogram performed 03/03/2024 --> normal LV wall thickness, normal LV wall motion, normal LV systolic function, LVEF of 55 to 60%, moderately calcified aortic valve, mild aortic stenosis and mild aortic regurgitation. Continue home BP medications, ASA and diuretics. Other Chronic Medical Conditions: Hypothyroidism, diabetic neuropathy, COPD, GERD, bipolar disorder --> Can continue home meds for these specific conditions. Diet: DMII DVT Prophylaxis: SQ Heparin Disposition: PT/OT ordered for further recs Admission and Anticipated Discharge Date Admission Date: April 20, 2024 Subjective patient was seen multiple times during the day and 255 bed 2. Initially, stated that she felt "terrible." States she came in because of a cough, did not require any oxygen. Later called to bedside as patient was having 7 out of 10 chest pain. States it is in the middle of her chest, not associated with any shortness of breath. Patient requesting nitroglycerin however blood pressure was on the lower end. EKG and troponin obtained no concern for ischemia at this time. Patient given Tylenol to help relieve her pain. Review of Systems Review of Systems: All systems reviewed & are unremarkable except as noted in Subjective Physical Exam Physical Exam: General: Alert, oriented. No acute distress, obese Psych: Appropriate mood and affect Neuro: difficulty with movements in the bed HEENT: NC/AT CV: RRR Resp: Breath sounds clear bilaterally, no increased effort of breathing Abdomen: Soft, nontender Extremities:L>R edema in lower extremities bilaterally. Results & Data Results & Data Vital Signs (Past 12 Hours) Vital Signs Temp Pulse Pulse Resp BP Pulse Ox O2 Del Method 04/21/24 08:06 36.4 C L 64 16 98/56 L 96 Room Air 04/21/24 07:16 62 18 95 Room Air 04/21/24 07:13 Room Air 04/21/24 06:30 Room Air 04/21/24 06:01 62 04/21/24 03:40 36.6 C 64 18 115/70 94 Nasal Cannula 04/21/24 01:11 62 18 96 Nasal Cannula 04/20/24 23:23 66 04/20/24 23:22 36.5 C 63 18 105/58 L 96 Nasal Cannula O2 Flow Rate 04/21/24 08:06 04/21/24 07:16 04/21/24 07:13 04/21/24 06:30 04/21/24 06:01 04/21/24 03:40 3 04/21/24 01:11 2 04/20/24 23:23 04/20/24 23:22 3 Diagnostic Findings Chest X-Ray 04/20/24 13:53 XR chest 1V portable CLINICAL HISTORY: cough, hypoxia TECHNIQUE: Single frontal radiograph of the chest was obtained. Comparison: Comparison is made to chest radiograph 03/29/2024 FINDINGS: Median sternotomy wires are unchanged. Cardiomegaly is noted. Elevation of the right hemidiaphragm is seen. Faint airspace opacities are in the bilateral perihilar region. No evidence of pleural effusion or pneumothorax. IMPRESSION: Faint airspace opacities may reflect infectious/inflammatory process. ACT 112: Negative or not required by law. Electronically signed by: Jole Cuellar M.D. 04/20/2024 2:[address] 04/20/24 16:56 Exam(s): CT CHEST Without Contrast EXAM: CT Chest Without Intravenous Contrast CLINICAL HISTORY: Reason for exam: CXR c/f PNA. TECHNIQUE: Axial computed tomography images of the chest without intravenous contrast. CTDI is 37.69 mGy and DLP is 624.41 mGy-cm. Automated exposure control was utilized for the study. A dose lowering technique was utilized adhering to the principles of ALARA. COMPARISON: No relevant prior studies available. FINDINGS: Lungs: Subsegmental atelectasis in both lower lobes. No consolidation or mass. Possible small region of tree-in-bud infiltrate in the posterior right upper lobe (series 6, image 21), potentially pneumonitis/pneumonia. Pleural space: Unremarkable. No pneumothorax. No significant effusion. Heart: Previous sternotomy. Coronary artery atherosclerosis. No cardiomegaly or pericardial effusion. Aortic valvular calcification. Bones/joints: Osteopenia. No acute fracture or dislocation. Mild chronic T1 superior endplate compression fracture. Degenerative changes of the glenoid will joints, advanced on the right side. Soft tissues: Unremarkable. Vasculature: Thoracic aortic atherosclerosis without aneurysm. Lymph nodes: Unremarkable. No enlarged lymph nodes. Gallbladder and bile ducts: Cholecystectomy. Spleen: Splenomegaly measuring 16 cm. IMPRESSION: Possible small region of tree-in-bud infiltrate in the posterior right upper lobe (series 6, image 21), potentially pneumonitis/pneumonia. Electronically signed by: Denny Lim M.D. 04/20/24 19:[address] 04/20/24 17:24 CT SCAN OF THE BRAIN WITHOUT IV CONTRAST CLINICAL HISTORY: Change in mental status. Lethargy. COMPARISON STUDY: CT of the brain dated 05/12/2023. TECHNIQUE: Unenhanced axial CT scan of the brain is performed from the vertex to the skull base. A dose lowering technique was utilized adhering to the principles of ALARA. FINDINGS: Brain parenchyma: There is age-related involutional change noting mild to moderate subcortical and periventricular microangiopathic disease. There is no hemorrhage, mass effect, or evidence of acute territorial ischemia by CT criteria. There is a chronic lacunar infarct noted in the right thalamus. Garcia- white matter differentiation is preserved. No extra-axial fluid collection is seen. Ventricles, sulci, cisterns: Prominent secondary to involutional change. Intracranial vasculature: There is atherosclerotic calcification of the cavernous carotid and vertebral artery. Calvarium: Unremarkable. Sinuses and mastoids: The visualized paranasal sinuses are clear. The mastoid air cells are well pneumatized. Orbits: The bony orbits are grossly intact. There are bilateral ocular lens implants. IMPRESSION: There is no hemorrhage, mass effect, or evidence of acute territorial ischemia by CT criteria. ACT 112: Negative or not required by law. Electronically signed by: Berto Snow M.D. 04/20/2024 6:43 PM (1) Altered mental status Altered mental status type: unspecified Qualified Code(s): R41.82 - Altered mental status, unspecified
[2024-04-21] MEDS: ACETAMINOPHEN 500 MG TAB PO PRN (15:28)
--- NOTE | 2024-04-21 16:47 | Electrocardiogram Report ---
Test Reason : Blood Pressure : */* mmHG Vent. Rate : 73 BPM Atrial Rate : 73 BPM P-R Int : 180 ms QRS Dur : 114 ms QT Int : 400 ms P-R-T Axes : 15 107 -8 degrees QTcB Int : 440 ms Normal sinus rhythm Rightward axis Left ventricular hypertrophy with QRS widening and repolarization abnormality Abnormal ECG When compared with ECG of 20-Apr-2024 13:05, Criteria for Inferior infarct no longer present Left anterior fascicular block no longer present QRS axis Shifted right Confirmed by Ramon Mccarthy ([id number]) on 04/21/2024 4:46:50 PM Referred By: REFERRED SELF Confirmed By: Ramon Mccarthy
[2024-04-21] MEDS: ALBUMIN 25% 25 GM/100 ML VIAL IV ONE (21:44)
[2024-04-21] MEDS: LANTUS PER UNIT CHARGE SQ SCH (22:02)
[2024-04-21 22:07] LABS: BUN Creatinine Ratio 13.4 (10-20); Calcium 8.7 mg/dl (8.6-10.3); Creatinine Clr Calc Pharmacy 47.5 ml/min; Potassium 4.2 mmol/L (3.5-5.1)
--- NOTE | 2024-04-22 02:08 | Communication Note ---
Date of Service: April 22, 2024 Patient SBP 80 to 90s as per RN. Patient asymptomatic except for episodic confusion. Serum sodium 122 from 132 in a.m. Serum Creatinine 1.34 from 1.13 AP Acute on chronic hyponatremia ARF on CKD Baseline UA Hyponatremia workup Careful correction of sodium with 500 cc NSS Hold diuretics for now. Follow serum sodium, nephrology consult developed improvement
[2024-04-22] MEDS: SODIUM CHLORIDE 0.9% 500 ML IV ONE (02:18)
[2024-04-22 02:46] LABS: Thyroid Stimulating Hormone 0.399 uIu/ml (0.300-4.500)
[2024-04-22 03:00] LABS: Appearance Urine Clear (Clear); Bacteria Urine Automated None Seen (None Seen); Bilirubin Urine Negative (Negative); Blood Urine 2+ (Negative); Cast Urine Automated 0-2 /lpf (0-2); Color Urine Yellow; Epithelial Cell Urine Auto 0-2 /hpf (0-2); Glucose Urine UA Negative (Negative); Ketones Urine Negative (Negative); Leukocyte Esterase Urine 2+ (Negative); Nitrite Urine Negative (Negative); Protein Urine Negative (Negative); Specific Gravity Urine 1.007 (1.000-1.030); Urobilinogen Urine Negative (Negative)
[2024-04-22 07:50] LABS: Basophils # (auto) 0.05 K/uL (0.00-0.20); Basophils % (auto) 0.7 %; Eosinophils # (auto) 0.09 K/uL (0.00-0.50); Eosinophils % (auto) 1.3 %; Hematocrit (blood only) 28.4 % (37.0-47.0); Hemoglobin 9.4 g/dl (12.0-16.0); Immature Granulocytes # (auto) 0.08 K/uL (0.01-0.20); Immature Granulocytes % (auto) 1.1 %; Lymphocytes # (auto) 1.15 K/uL (1.20-3.40); Lymphocytes % (auto) 16.1 %; Mean Corpuscular Hgb Conc 33.1 g/dL (32.0-36.0); Mean Corpuscular Volume 81.6 fL (80.0-100.0); Mean Platelet Volume 10.7 fL (9.4-12.4); Monocytes # (auto) 0.45 K/uL (0.11-0.59); Monocytes % (auto) 6.3 %; Neutrophils # (auto) 5.33 K/uL (1.40-6.50); Neutrophils % (auto) 74.5 %; Platelet Count 87 K/uL (130-400); RDW Standard Deviation 44.2 fL (36.4-46.3); Red Blood Count 3.48 M/uL (4.20-5.40); White Blood Count 7.15 K/ul (4.8-10.8)
[2024-04-22 08:04] LABS: BUN Creatinine Ratio 13.9 (10-20); Calcium 8.5 mg/dl (8.6-10.3); Creatinine Clr Calc Pharmacy 52.8 ml/min; Potassium 3.8 mmol/L (3.5-5.1)
[2024-04-22] MEDS: predniSONE 20 MG TAB PO SCH (08:56)
[2024-04-22] MEDS: GABAPENTIN 100 MG CAP PO SCH (08:58)
[2024-04-22] MEDS: INSULIN HUMAN NPH SC SCH (09:16)
--- NOTE | 2024-04-22 10:26 | Pharmacy Report ---
Pharmacy Glycemic Short Note 2 - Date of Service April 22, 2024 - Glycemic Short BSG Results (Last 24 hours): 04/21/24 04/21/24 04/21/24 12:23 17:10 20:56 Glucose POC Glucose 185 H 147 H 166 H 04/21/24 04/22/24 04/22/24 21:10 07:10 08:17 Glucose 147 H 106 H POC Glucose 118 H OUTPATIENT ANTIDIABETIC REGIMEN: * Lantus 35 units SC BID * Metformin 500 mg PO daily w/ dinner * Ozempic 2 mg SC weekly HbA1c: 6% (02/28/24) ASSESSMENT: 04/22/24: * Blood sugars reasonably controlled yesterday, ranging 140-185 mg/dL * Received 64 units of insulin (35 units of basal and 29 units of prandial/correctional bolus) * Steroids changed from methylprednisolone IV to prednisone 40 mg PO daily starting today * Will transition to NPH insulin to be given with prednisone today 04/21/24: * CD is a 73 year old female admitted for evaluation of altered mental status and acute respiratory failure * Patient received 6 mg IV dexamethasone last evening and ordered methylpredniso lone 40 mg IV daily starting today (04/21) * Blood sugars reasonably well-controlled thus far - current dosing equates to ~weight-based stress of 2 regimen * 185 mg/dL at lunch - will tighten carb ratio further PLAN FOR INPATIENT GLYCEMIC CONTROL: * Hold outpatient oral diabetes medications * Basal insulin * NPH 30 units SC daily w/ prednisone (~0.4 unit/kg of adjusted body weight) * Bolus insulin * NovoLog per scale ACHS or Q6hrs while NPO * Goal Range: Low 110 mg/dL - High 160 mg/dL * Correction Factor: 20 mg/dL/unit * Nutritional / Prandial insulin per carb ratio of 1 unit per 5 grams CHO consumed
--- NOTE | 2024-04-22 12:20 | Nephrology Consultation ---
Date of Consultation April 22, 2024 Assessment & Plan (1) Hyponatremia: Hyponatremia likely due to Syndrome of inappropriate ADH. urine sodium of 21 nad urine osmolarity of 151. Admission sodium 132 but dropped to 122. Sodium has improved and 128. -Fluid limit of 1.5litres daily. -Monitor sodium daily. (2) Acute hypoxic respiratory failure: Due to pneumonia. She is getting cefriaxone and doxy renally dosed (3) (HFpEF) heart failure with preserved ejection fraction: Holding her diuretics at the moment. We can probably restart diuretics tomorrow History of Present Illness Reason for Consultation: hyponatremia Requesting Physician: Sheila Hutchinson MD Attending Physician: Sheila Hutchinson MD History of Present Illness Angelina Ballard is a 73y/o F seen for hyponatremia. PMHx significant, hypothyroidism, DM type II, diabetic gastroparesis, CKD stage III, COPD, HTN, chronic diastolic congestive heart failure, moderate aortic stenosis, CAD, GONZALEZ with cirrhosis, portal hypertensive gastropathy, urinary incontinence [suprapubic catheter in place], Fxyffpe-Tajix-Ovxbe disease and bipolar disorder who was admitted with SOB found to have pneumonia on chest CT. She is getting Rocephin. She had a sodium of 132 but dropped to 122. has increased to 128 this morning. patient also with acute kidney injury with cr 1.3 from baseline around 1. She feels better this morning. No shortness of breath or leg swelling. Urine osmolality 151, urine sodium 21. Allergies Allergy/AdvReac Type Severity Reaction Status Date / Time propoxyphene Allergy Intermediate Rash Verified 05/09/23 13:18 fentanyl AdvReac Intermediate PANIC Verified 05/09/23 13:18 WANTS TO RUN AND AGGRESSIVE methocarbamol AdvReac Intermediate DELERIUM Verified 05/09/23 13:18 zolpidem AdvReac Intermediate confusion Verified 05/09/23 13:18 Home Medications Medication Instructions Recorded Confirmed Type albuterol sulfate 90 mcg/actuation 2 inh inhalation Q6 PRN Shortness 02/07/23 04/20/24 History aerosol inhaler Of Breath Or Wheezing aripiprazole 2 mg tablet 2 mg PO QAM 02/07/23 04/20/24 History atorvastatin 40 mg tablet 40 mg PO QAM 02/07/23 04/20/24 History clonazepam 0.5 mg tablet 0.5 mg PO TID 02/07/23 04/20/24 History famotidine 20 mg tablet 40 mg PO QAM 02/07/23 04/20/24 History fluticasone propionate 50 2 spray intranasal DAILY 02/07/23 04/20/24 History mcg/actuation nasal spray,suspension (Flonase Allergy Relief) gabapentin 300 mg capsule 300 mg PO BID 02/07/23 04/20/24 History lamotrigine 100 mg tablet 100 mg PO QAM 02/07/23 04/20/24 History (Lamictal) lamotrigine 25 mg tablet (Lamictal) 25 mg PO QAM 02/07/23 04/20/24 History lamotrigine 25 mg tablet (Lamictal) 50 mg PO HS 02/07/23 04/20/24 History levothyroxine 88 mcg tablet 88 mcg PO QAM 02/07/23 04/20/24 History montelukast 10 mg tablet 10 mg PO DAILY 02/07/23 04/20/24 History nitroglycerin 0.4 mg sublingual 0.4 mg sublingual DIRECTED PRN 02/07/23 04/20/24 History tablet (Nitrostat) Chest Pain pantoprazole 40 mg tablet,delayed 40 mg PO AMPM 02/07/23 04/20/24 History release potassium chloride 20 mEq 20 meq PO QAM PRN when taking 02/07/23 04/20/24 History tablet,extended additional torsemide release(part/cryst) (Klor-Con M) rifaximin 550 mg tablet (Xifaxan) 550 mg PO BID 02/07/23 04/20/24 History tamsulosin 0.4 mg capsule 0.4 mg PO QAM 02/07/23 04/20/24 History torsemide 20 mg tablet 20 mg PO QAM 02/07/23 04/20/24 History trazodone 50 mg tablet 100 mg PO HS 02/07/23 04/20/24 History venlafaxine 150 mg 150 mg PO QAM 02/07/23 04/20/24 History capsule,extended release 24 hr venlafaxine 75 mg tablet,extended 75 mg PO QAM 02/07/23 04/20/24 History release 24 hr insulin glargine 100 unit/mL 35 unit subcut BID 05/09/23 04/20/24 History subcutaneous solution (Lantus U-100 Insulin) ascorbic acid (vitamin C) 500 mg 500 mg PO AMHS 05/12/23 04/20/24 History tablet (Vitamin C) aspirin 81 mg tablet,delayed 81 mg PO QAM 05/12/23 04/20/24 History release budesonide-formoterol HFA 160 2 puff inhalation AMHS 05/12/23 04/20/24 History mcg-4.5 mcg/actuation aerosol inhaler (Symbicort) dicyclomine 10 mg capsule 10 mg PO QID PRN Abdominal Pain 05/12/23 04/20/24 History metformin 500 mg tablet,extended 500 mg PO QDD 05/12/23 04/20/24 History release 24 hr nystatin 100,000 unit/gram topical 1 applic topical TID 05/12/23 04/20/24 History powder (Nyamyc) ondansetron HCl 8 mg tablet 8 mg PO Q8 PRN Nausea 05/12/23 04/20/24 History oxybutynin chloride 10 mg 10 mg PO QAM 05/12/23 04/20/24 History tablet,extended release 24 hr spironolactone 50 mg tablet 50 mg PO AMHS 05/12/23 04/20/24 History lactulose 10 gram/15 mL oral 45 ml PO BID 03/02/24 04/20/24 History solution semaglutide 2 mg/dose (8 mg/3 mL) 2 mg subcut .WEEKLY 03/02/24 04/20/24 History subcutaneous pen injector (Ozempic) calcium 600 mg (as 1 tab PO DAILY #60 tabs 03/05/24 04/20/24 Rx carbonate)-vitamin D3 10 mcg (400 unit) tablet (Calcium 600 + D(3)) metoprolol succinate 25 mg 25 mg PO BID #60 tabs 03/05/24 04/20/24 Rx tablet,extended release 24 hr Patient History Medical History Cardiac arrest pt states she was told she went into cardiac arrest during her hip surgery in 02/2022 at [facility] and was "revived". no other details were given. Palpitations occasionally -- pt states since her metoprolol has been decreased. Cough started about 8 months ago s/p covid-19 virus -- currently treating with augmentin PO bid and prednisone. prednisone to end 05/27/22 and abx to finish on 06/01/22 Hx of fall pt. fell in the bathroom at home, pt. wasn't aware of what happen but was told this by her family 02/05/2022 History of anesthesia reaction REMOTE HX, SIDE EFFECTS : ANXIETY AND SEVERE N/V History of COVID-19 may or june 2021, has cough since. SOB (shortness of breath) SINCE COVID -8 MON AGO, SOB, COUGH...NO DX...HAS VISIT WITH PULM UPCOMING TO EVALUATE Urinary incontinence UTI (urinary tract infection) FREQUENT/PREVENTATIVE ABX'S CURRENTLY MOST RECENT UTI JANUARY 04 - ABX COMPLETE - ON CURRENT PROPHYLACTIC TX Irregular heart beat follows Dr. 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 Lucas History of cardiac cath multiple - most recent - 2 years ago @ [facility] Family History Father Coronary heart disease Brother Coronary heart disease Father No problems noted. Mother No problems noted. Other No family history of adverse response to anesthesia Social History Smoking Status: Never smoker Tobacco Type: Cigarettes Second Hand Exposure: Yes; Do You Dip or Chew Tobacco: No; Hx Alcohol Use: No Hx Substance Use: No Preferred Language: Citizen Of [place] Communication Ability: Disoriente Visual Impairment: Partially Limited Hearing Ability: Hard of Hearing Health Care Attorney Required: No Beliefs That Will Affect Care: None marital status: / Current Living Situation: Shelter Current Living Situation Comment: [facility] How many Children do You have: 3 Other Information That Helps Us Care for You: No Feels Safe at Home: Yes Safety Concerns: Feels Safe At This Time Diet: low carbohydrate and low salt caffeine: No Assistive Devices: Hospital Bed, Lift Chair, Walker and Wheelchair Review of Systems 2 Review of Systems: All other systems were reviewed and negative except as noted in HPI Physical Exam 2 Physical Exam: General exam: Appears comfortable, no acute distress HEENT: Pupils are equal and reactive to light Neck: No JVD, neck is supple trachea is midline Respiratory system: Clear breath sounds bilaterally. Gastrointestinal: Abdomen is soft, non distended, non tender, bowel sounds are present CVS: Regular rate and rhythm. No murmurs, rubs or gallops Musculoskeletal: No joint or muscle tenderness Extremities: Non tender, no edema, peripheral pulses are present Neuro: Oriented, no tremors, no focal neurological deficits Skin: No rashes Results & Data Vital Signs (Past 12 Hours) Vital Signs Temp Pulse Pulse Resp BP Pulse Ox O2 Del Method 04/22/24 12:05 36.7 C 66 16 104/65 96 Room Air 04/22/24 09:40 66 04/22/24 07:59 36.7 C 68 17 105/64 94 Room Air 04/22/24 07:57 Room Air 04/22/24 07:12 64 16 96 Room Air 04/22/24 03:18 36.3 C L 66 16 101/62 94 Room Air 04/22/24 00:24 Room Air Laboratory Results 04/22/24 07:10 04/22/24 07:10 WBC 7.15 RBC 3.48 L MCV 81.6 MCH 27.0 MCHC 33.1 RDW Std Deviation 44.2 RDW Coeff of Guillermo 15.0 H Plt Count 87 L MPV 10.7 Phosphorus 3.0
--- NOTE | 2024-04-22 14:13 | Hospitalist Progress Note ---
Date of Service April 22, 2024 Assessment & Plan (1) Altered mental status: (2) Acute hypoxic respiratory failure: Plan Angelina Ballard is a 73y/o F with PMHx significant for dyslipidemia, hypothyroidism, DM type II [on long-term insulin therapy], diabetic neuropathy, diabetic gastroparesis, CKD stage III, COPD, HTN, chronic diastolic congestive heart failure, moderate aortic stenosis, CAD, chronic liver disease and cirrhosis, portal hypertensive gastropathy, GERD, GONZALEZ/fatty liver, urinary incontinence [suprapubic catheter in place], Qvirdpq-Hljhx-Cnoej disease and bipolar disorder who presented to the ED via EMS from [facility] for evaluation secondary to SOB, generalized weakness and altered mental status. Acute Metabolic/toxic Encephalopathy patient with acute altered mental status on admission Per Daughter, Carolyn, pt did not even recognize her Head CT negative Ammonia level normal in setting of pt's known hx of cirrhosis likely altered in the setting of acute infection Delirium precautions. Frequent reorientation, avoid sedating medications continue to monitor Acute Hypoxic Respiratory Failure Sepsis Pneumonia Patient hypoxic at 88% SpO2 in ED. patient also having leukocytosis on arrival as well as fevers on admission with likely pulmonary infectious source respiratory panel negative ProCal was normal vbg with slight elevation of pCO2 MRSA nares negative Chest x-ray was concerning for possible pneumonia versus inflammatory process CT chest noting "Possible small region of tree-in-bud infiltrate in the posterior right upper lobe (series 6, image 21), potentially pneumoniti s/pneumonia." S/p 6mg IV dexamethasone in the ED. Continue po doxycycline + IV Rocephin in the ED Was on 40mg IV Solu-Medrol daily, transition to p.o. prednisone Pulmonary toilet with scheduled nebs, incentive spirometry and flutter valve Wean off oxygen as tolerated, pt currently off oxygen Continue to monitor Hyponatremia acute sodium dropped to 122 overnight from 132 Also noted CEE nephrology consulted appreciate recs -Likely SIADH -Fluid restrict 1500 mL -Continue to hold diuretics continue to monitor Elevated Troponin Level Likely Demand Ischemia Chest Pain Troponin elevated on admission with downtrend EKG without acute ischemia Likely elevated in setting of acute infection and continue to monitor on telemetry EKGs as needed for chest pain. Hypomagnesemia Mag 1.5 on presentation. Replete as needed Urinary Incontinence, Suprapubic Catheter POA: Patient follows closely with [facility], Dr. Alfredo Panda. She recently had her suprapubic catheter exchanged on 04/08/2024. UA without evidence of bacteria Continue home oxybutynin and Flomax. Chronic Liver Disease and Cirrhosis, GONZALEZ: Stable, no evidence of acute encephalopathy. Ammonia 33 as per above. Continue home lactulose and Xifaxan. Tmxcqrt-Vrxyb-Zecfq Disease: Has foot drop at baseline, wears BLE braces. DM Type II: Hold home agents, basal/bolus insulin regimen while inpatient. BSG checks ACHS. Hgb A1c was 6.0% on 03/03/2024. Glycemic pharmacy consulted. Chronic Diastolic Congestive Heart Failure, HTN & CAD: Most recent echocardiogram performed 03/03/2024 --> normal LV wall thickness, normal LV wall motion, normal LV systolic function, LVEF of 55 to 60%, moderately calcified aortic valve, mild aortic stenosis and mild aortic regurgitation. Continue home BP medications, ASA and diuretics. Other Chronic Medical Conditions: Hypothyroidism, diabetic neuropathy, COPD, GERD, bipolar disorder --> Can continue home meds for these specific conditions. Diet: DMII DVT Prophylaxis: SQ Heparin Disposition: PT/OT ordered for further recs Admission and Anticipated Discharge Date Admission Date: April 20, 2024 Subjective patient was seen laying in bed eating lunch. Episode of confusion and hyponatremia overnight Alert and oriented x 3 Denies any acute concerns Review of Systems Review of Systems: All systems reviewed & are unremarkable except as noted in Subjective Physical Exam Physical Exam: General: Alert, oriented. No acute distress, obese Psych: Appropriate mood and affect Neuro: difficulty with movements in the bed HEENT: NC/AT CV: RRR Resp: Breath sounds clear bilaterally, no increased effort of breathing Abdomen: Soft, nontender Extremities:L>R edema in lower extremities bilaterally. Results & Data Results & Data Vital Signs (Past 12 Hours) Vital Signs Temp Pulse Pulse Resp BP Pulse Ox O2 Del Method 04/22/24 12:58 64 18 94 Room Air 04/22/24 12:05 36.7 C 66 16 104/65 96 Room Air 04/22/24 09:40 66 04/22/24 07:59 36.7 C 68 17 105/64 94 Room Air 04/22/24 07:57 Room Air 04/22/24 07:12 64 16 96 Room Air 04/22/24 03:18 36.3 C L 66 16 101/62 94 Room Air (1) Altered mental status Altered mental status type: unspecified Qualified Code(s): R41.82 - Altered mental status, unspecified
[2024-04-23 08:14] LABS: Hematocrit (blood only) 32.2 % (37.0-47.0); Hemoglobin 10.4 g/dl (12.0-16.0); Mean Corpuscular Hemoglobin 26.7 pg (25.0-34.0); Mean Corpuscular Hgb Conc 32.3 g/dL (32.0-36.0); Mean Corpuscular Volume 82.6 fL (80.0-100.0); Mean Platelet Volume 10.5 fL (9.4-12.4); Platelet Count 92 K/uL (130-400); RDW Coefficient of Variation 14.8 % (11.5-14.5); White Blood Count 5.89 K/ul (4.8-10.8)
[2024-04-23 08:22] LABS: BUN Creatinine Ratio 15.4 (10-20); Calcium 9.1 mg/dl (8.6-10.3); Creatinine Clr Calc Pharmacy 54.4 ml/min; Magnesium 2.2 mg/dl (1.7-2.4); Potassium 4.1 mmol/L (3.5-5.1)
[2024-04-23 08:37] LABS: Basophils # (auto) 0.02 K/uL (0.00-0.20); Basophils % (auto) 0.3 %; Eosinophils # (auto) 0.01 K/uL (0.00-0.50); Eosinophils % (auto) 0.2 %; Immature Granulocytes # (auto) 0.07 K/uL (0.01-0.20); Immature Granulocytes % (auto) 1.2 %; Lymphocytes # (auto) 0.95 K/uL (1.20-3.40); Lymphocytes % (auto) 16.1 %; Monocytes # (auto) 0.46 K/uL (0.11-0.59); Monocytes % (auto) 7.8 %; Neutrophils # (auto) 4.38 K/uL (1.40-6.50); Neutrophils % (auto) 74.4 %; Polychromasia 1+
[2024-04-23 08:41] LABS: Ferritin 55.5 ng/ml (8-388)
[2024-04-23 08:47] LABS: Folate (Folic Acid),Ser orPlas 16.08 ng/ml (>5.38)
--- NOTE | 2024-04-23 09:42 | Pharmacy Report ---
Pharmacy Glycemic Short Note 2 - Date of Service April 23, 2024 - Glycemic Short BSG Results (Last 24 hours): 04/22/24 04/22/24 04/22/24 11:59 16:31 17:05 Glucose POC Glucose 110 H 129 H 147 H 04/22/24 04/23/24 04/23/24 20:42 07:14 08:15 Glucose 122 H POC Glucose 176 H 137 H OUTPATIENT ANTIDIABETIC REGIMEN: * Lantus 35 units SC BID * Metformin 500 mg PO daily w/ dinner * Ozempic 2 mg SC weekly HbA1c: 6% (02/28/24) ASSESSMENT: 04/23/24: * Blood sugars remain reasonably well-controlled * Received 61 units of insulin yesterday (~50/50 basal/bolus split) * No change to steroids today * Blood sugar of 80 mg/dL at lunchtime, will loosen carb coverage slightly 04/22/24: * Blood sugars reasonably controlled yesterday, ranging 140-185 mg/dL * Received 64 units of insulin (35 units of basal and 29 units of prandial/correctional bolus) * Steroids changed from methylprednisolone IV to prednisone 40 mg PO daily starting today * Will transition to NPH insulin to be given with prednisone today 04/21/24: * CD is a 73 year old female admitted for evaluation of altered mental status and acute respiratory failure * Patient received 6 mg IV dexamethasone last evening and ordered methylprednisolone 40 mg IV daily starting today (04/21) * Blood sugars reasonably well-controlled thus far - current dosing equates to ~weight-based stress of 2 regimen * 185 mg/dL at lunch - will tighten carb ratio further PLAN FOR INPATIENT GLYCEMIC CONTROL: * Hold outpatient oral diabetes medications * Basal insulin * NPH 30 units SC daily w/ prednisone (~0.4 unit/kg of adjusted body weight) * Bolus insulin * NovoLog per scale ACHS or Q6hrs while NPO * Goal Range: Low 110 mg/dL - High 160 mg/dL * Correction Factor: 20 mg/dL/unit * Nutritional / Prandial insulin per carb ratio of 1 unit per 6 grams CHO consumed
--- NOTE | 2024-04-23 13:42 | Hospitalist Progress Note ---
Date of Service April 23, 2024 Assessment & Plan (1) Altered mental status: (2) Acute hypoxic respiratory failure: Plan Angelina Ballard is a 73y/o F with PMHx significant for dyslipidemia, hypothyroidism, DM type II [on long-term insulin therapy], diabetic neuropathy, diabetic gastroparesis, CKD stage III, COPD, HTN, chronic diastolic congestive heart failure, moderate aortic stenosis, CAD, chronic liver disease and cirrhosis, portal hypertensive gastropathy, GERD, GONZALEZ/fatty liver, urinary incontinence [suprapubic catheter in place], Woquulq-Qatoo-Zyklq disease and bipolar disorder who presented to the ED via EMS from [facility] for evaluation secondary to SOB, generalized weakness and altered mental status. Acute Metabolic/toxic Encephalopathy patient with acute altered mental status on admission Per Daughter, Carolyn, pt did not even recognize her Head CT negative Ammonia level normal in setting of pt's known hx of cirrhosis likely altered in the setting of acute infection Delirium precautions. Frequent reorientation, avoid sedating medications continue to monitor Acute Hypoxic Respiratory Failure Sepsis Pneumonia Patient hypoxic at 88% SpO2 in ED. patient also having leukocytosis on arrival as well as fevers on admission with likely pulmonary infectious source respiratory panel negative ProCal was normal vbg with slight elevation of pCO2 MRSA nares negative Chest x-ray was concerning for possible pneumonia versus inflammatory process CT chest noting "Possible small region of tree-in-bud infiltrate in the posterior right upper lobe (series 6, image 21), potentially pneumoniti s/pneumonia." S/p 6mg IV dexamethasone in the ED. Continue po doxycycline + IV Rocephin in the ED Was on 40mg IV Solu-Medrol daily, transition to p.o. prednisone Pulmonary toilet with scheduled nebs, incentive spirometry and flutter valve Wean off oxygen as tolerated, pt currently off oxygen Continue to monitor Hyponatremia acute sodium dropped to 122 overnight from 132 Also noted CEE nephrology consulted appreciate recs -Likely SIADH -Fluid restrict 1500 mL -Continue to hold diuretics continue to monitor Elevated Troponin Level Likely Demand Ischemia Chest Pain Troponin elevated on admission with downtrend EKG without acute ischemia Likely elevated in setting of acute infection and continue to monitor on telemetry EKGs as needed for chest pain. Hypomagnesemia Mag 1.5 on presentation. Replete as needed Urinary Incontinence, Suprapubic Catheter POA: Patient follows closely with [facility], Dr. Alfredo Panda. She recently had her suprapubic catheter exchanged on 04/08/2024. UA without evidence of bacteria Continue home oxybutynin and Flomax. Chronic Liver Disease and Cirrhosis, GONZALEZ: Stable, no evidence of acute encephalopathy. Ammonia 33 as per above. Continue home lactulose and Xifaxan. Ozmcujv-Dwcid-Ktvkt Disease: Has foot drop at baseline, wears BLE braces. DM Type II: Hold home agents, basal/bolus insulin regimen while inpatient. BSG checks ACHS. Hgb A1c was 6.0% on 03/03/2024. Glycemic pharmacy consulted. Chronic Diastolic Congestive Heart Failure, HTN & CAD: Most recent echocardiogram performed 03/03/2024 --> normal LV wall thickness, normal LV wall motion, normal LV systolic function, LVEF of 55 to 60%, moderately calcified aortic valve, mild aortic stenosis and mild aortic regurgitation. Continue home BP medications, ASA and diuretics. Other Chronic Medical Conditions: Hypothyroidism, diabetic neuropathy, COPD, GERD, bipolar disorder --> Can continue home meds for these specific conditions. Diet: DMII DVT Prophylaxis: SQ Heparin Disposition: PT/OT ordered for further recs Admission and Anticipated Discharge Date Admission Date: April 20, 2024 Subjective patient was seen sitting in chair at bedside Denied acute concerns Does note that she is improving though she is still weak and has a cough Asking about discharge Review of Systems Review of Systems: All systems reviewed & are unremarkable except as noted in Subjective Physical Exam Physical Exam: General: Alert, oriented. No acute distress, obese Psych: Appropriate mood and affect Neuro: difficulty with movements in the bed HEENT: NC/AT CV: RRR Resp: Breath sounds clear bilaterally, no increased effort of breathing Abdomen: Soft, nontender Extremities:L>R edema in lower extremities bilaterally. Results & Data Results & Data Vital Signs (Past 12 Hours) Vital Signs Temp Pulse Pulse Resp BP BP Pulse Ox 04/23/24 12:21 61 18 96 04/23/24 11:47 37.1 C 61 16 149/71 H 95 04/23/24 10:18 56 L 04/23/24 07:54 04/23/24 07:46 36.5 C 56 L 20 127/73 95 04/23/24 07:06 60 18 98 04/23/24 02:12 36.5 C 62 16 153/75 H 94 O2 Del Method 04/23/24 12:21 Room Air 04/23/24 11:47 Room Air 04/23/24 10:18 04/23/24 07:54 Room Air 04/23/24 07:46 Room Air 04/23/24 07:06 Room Air 04/23/24 02:12 Room Air (1) Altered mental status Altered mental status type: unspecified Qualified Code(s): R41.82 - Altered mental status, unspecified
[2024-04-23] MEDS: FERROUS SULFATE 325 MG TAB PO SCH (15:32)
--- NOTE | 2024-04-23 16:41 | Nephrology Progress Note ---
Date of Service April 23, 2024 Assessment & Plan (1) Hyponatremia: Plan: Hyponatremia likely due to Syndrome of inappropriate ADH. urine sodium of 21 and urine osmolarity of 151. Admission sodium 132 but dropped to 122. Sodium has improved and 132 today. -Fluid limit of 1.5litres daily. -Monitor sodium daily. - From renal standpoint patient can be discharged on a fluid limit of 1.5 L. (2) Acute hypoxic respiratory failure: Plan: Due to pneumonia. She is getting cefriaxone and doxy renally dosed (3) (HFpEF) heart failure with preserved ejection fraction: Plan: Holding her diuretics at the moment. We can restart torsemide on discharge but no Aldactone. Admission and Anticipated Discharge Date Admission Date: April 20, 2024 Subjective Seen for hyponatremia. She feels better today. No shortness of breath. Patient was eating lunch at the time of my visit. Sodium up trending to 132. Review of Systems 2 Review of Systems: All other systems were reviewed and negative except as noted in HPI Physical Exam 2 Physical Exam: General exam: Appears comfortable, no acute distress HEENT: Pupils are equal and reactive to light Neck: No JVD, neck is supple trachea is midline Respiratory system: Clear breath sounds bilaterally. Gastrointestinal: Abdomen is soft, non distended, non tender, bowel sounds are present CVS: Regular rate and rhythm. No murmurs, rubs or gallops Musculoskeletal: No joint or muscle tenderness Extremities: Non tender, no edema, peripheral pulses are present Neuro: Oriented, no tremors, no focal neurological deficits Skin: No rashes Results & Data Vital Signs (Past 12 Hours) Vital Signs Temp Pulse Pulse Resp BP Pulse Ox O2 Del Method 04/23/24 15:45 36.8 C 68 18 132/62 95 Room Air 04/23/24 14:03 68 04/23/24 12:21 61 18 96 Room Air 04/23/24 11:47 37.1 C 61 16 149/71 H 95 Room Air 04/23/24 10:18 56 L 04/23/24 07:54 Room Air 04/23/24 07:46 36.5 C 56 L 20 127/73 95 Room Air 04/23/24 07:06 60 18 98 Room Air Laboratory Results 04/23/24 07:14 04/23/24 07:14 WBC 5.89 RBC 3.90 L MCV 82.6 MCH 26.7 MCHC 32.3 RDW Std Deviation 45.0 RDW Coeff of Guillermo 14.8 H Plt Count 92 L MPV 10.5 Phosphorus 3.0
[2024-04-24 06:35] LABS: Basophils # (auto) 0.02 K/uL (0.00-0.20); Basophils % (auto) 0.3 %; Eosinophils # (auto) 0.02 K/uL (0.00-0.50); Eosinophils % (auto) 0.3 %; Hematocrit (blood only) 32.8 % (37.0-47.0); Hemoglobin 10.7 g/dl (12.0-16.0); Immature Granulocytes # (auto) 0.11 K/uL (0.01-0.20); Immature Granulocytes % (auto) 1.5 %; Lymphocytes # (auto) 1.11 K/uL (1.20-3.40); Lymphocytes % (auto) 15.4 %; Mean Corpuscular Hgb Conc 32.6 g/dL (32.0-36.0); Mean Corpuscular Volume 82.8 fL (80.0-100.0); Mean Platelet Volume 10.7 fL (9.4-12.4); Monocytes # (auto) 0.57 K/uL (0.11-0.59); Monocytes % (auto) 7.9 %; Neutrophils # (auto) 5.39 K/uL (1.40-6.50); Neutrophils % (auto) 74.6 %; Platelet Count 99 K/uL (130-400); RDW Coefficient of Variation 14.7 % (11.5-14.5); RDW Standard Deviation 43.9 fL (36.4-46.3); Red Blood Count 3.96 M/uL (4.20-5.40); White Blood Count 7.22 K/ul (4.8-10.8)
[2024-04-24 06:54] LABS: Calcium 9.3 mg/dl (8.6-10.3); Magnesium 2.1 mg/dl (1.7-2.4); Phosphorus 3.1 mg/dl (2.5-4.9); Potassium 4.1 mmol/L (3.5-5.1)
[2024-04-24 07:59] VITALS: TEMP 98.1
--- NOTE | 2024-04-24 11:13 | Communication Note ---
Date of Service: April 24, 2024 Pt for d/c today; no prior hx of hyponatremia before admission NEPHRO D/C RECOMMENDATIONS -1.5L fluid limit -<2 gm daily sodium intake -resume prior outpatient torsemide but hold aldactone -BMP at pcp f/u hospital visit -resume aldactone if BMP ok and still clinically indicated >> but check bmp weekly x 2 thereafter -if ongoing sodium concerns, pls refer for outpatient nephrology evaluation
--- NOTE | 2024-04-24 11:19 | Communication Note ---
Date of Service: April 24, 2024 ADDENDUM/CORRECTIONS TO PRIOR COMMUNICATION: DOES have hx of mild hyponatremia in the past on [facility] labs given longstanding hyponatremia, [facility]6 [facility] after d/c w/ Dr Smith; nephro nurse to order bmp, urine /sodium osms, uacm, urine electrolytes to be done no more than 72 hrs before appt other d/c recs as previously listed
--- NOTE | 2024-04-24 12:17 | Discharge Summary ---
Discharge Summary Date of Service April 24, 2024 Principal Dx & Hospital Course #1 = Principal Diagnosis (1) Altered mental status: (2) Acute hypoxic respiratory failure: Plan Angelina Ballard is a 73y/o F with PMHx significant for dyslipidemia, hypothyroidism, DM type II [on long-term insulin therapy], diabetic neuropathy, diabetic gastroparesis, CKD stage III, COPD, HTN, chronic diastolic congestive heart failure, moderate aortic stenosis, CAD, chronic liver disease and cirrhosis, portal hypertensive gastropathy, GERD, GONZALEZ/fatty liver, urinary incontinence [suprapubic catheter in place], Buwgryl-Yfxqn-Tfdop disease and bi polar disorder who presented to the ED via EMS from [facility] for evaluation secondary to SOB, generalized weakness and altered mental status. Acute Metabolic/toxic Encephalopathy patient with acute altered mental status on admission Per Daughter, Carolyn, pt did not even recognize her Head CT negative Ammonia level normal in setting of pt's known hx of cirrhosis likely altered in the setting of acute infection Delirium precautions. Frequent reorientation, avoid sedating medications Patient was alert and oriented x 3 on day of discharge Acute Hypoxic Respiratory Failure Sepsis Pneumonia Patient hypoxic at 88% SpO2 in ED. patient also having leukocytosis on arrival as well as fevers on admission with likely pulmonary infectious source respiratory panel negative ProCal was normal vbg with slight elevation of pCO2 MRSA nares negative Chest x-ray was concerning for possible pneumonia versus inflammatory process CT chest noting "Possible small region of tree-in-bud infiltrate in the posterior right upper lobe (series 6, image 21), potentially pneumonitis/pneumonia." S/p 6mg IV dexamethasone in the ED. Treated with doxycycline + IV Rocephin, discharged on 6 more days of po doxycycline and cefdinir Was on 40mg IV Solu-Medrol daily, transitioned to p.o. prednisone with discharge on 2 more days of prednisone 40mg daily. Pulmonary toilet with scheduled nebs, incentive spirometry and flutter valve Weaned off oxygen Patient was stable on room air on discharge not requiring oxygen. Close PCP follow-up Hyponatremia acute sodium dropped to 122 overnight from 132 Also noted CEE nephrology consulted appreciate recs. Discharge recs: -Likely SIADH NEPHRO D/C RECOMMENDATIONS -1.5L fluid limit -<2 gm daily sodium intake -resume prior outpatient torsemide but hold aldactone -BMP at pcp f/u hospital visit -resume aldactone if BMP ok and still clinically indicated >> but check bmp weekly x 2 thereafter As patient has had no hyponatremia in the past, recommending close nephrology follow-up after discharge nephrology follow-up after discharge Acute Kidney injury creatinine elevated to 1.34 during hospitalization Within normal limits on day of discharge Elevated Troponin Level Likely Demand Ischemia Chest Pain Troponin elevated on admission with downtrend EKG without acute ischemia Likely elevated in setting of acute infection and continue to monitor on telemetry EKGs as needed for chest pain. Hypomagnesemia Mag 1.5 on presentation. Repleted as needed Urinary Incontinence, Suprapubic Catheter POA: Patient follows closely with [facility], Dr. Alfredo Panda. She recently had her suprapubic catheter exchanged on 04/08/2024. UA without evidence of bacteria Continue home oxybutynin and Flomax. Urology followup after discharge Chronic Liver Disease and Cirrhosis, GONZALEZ: Stable, no evidence of acute encephalopathy. Ammonia 33 as per above. Continue home lactulose and Xifaxan. Wtejdxs-Pfqey-Vbipg Disease: Has foot drop at baseline, wears BLE braces. DM Type II: Hold home agents, basal/bolus insulin regimen while inpatient. BSG checks ACHS. Hgb A1c was 6.0% on 03/03/2024. Glycemic pharmacy consulted. Chronic Diastolic Congestive Heart Failure, HTN & CAD: Most recent echocardiogram performed 03/03/2024 --> normal LV wall thickness, normal LV wall motion, normal LV systolic function, LVEF of 55 to 60%, moderately calcified aortic valve, mild aortic stenosis and mild aortic regurgitation. Continue home BP medications, ASA and diuretics. Other Chronic Medical Conditions: Hypothyroidism, diabetic neuropathy, COPD, GERD, bipolar disorder --> Can continue home meds for these specific conditions. Notes For Next Care Provider please ensure follow-up closely with nephrology. Nephrology discharge recs: "NEPHRO D/C RECOMMENDATIONS -1.5L fluid limit -<2 gm daily sodium intake -resume prior outpatient torsemide but hold aldactone -BMP at pcp f/u hospital visit -resume aldactone if BMP ok and still clinically indicated >> but check bmp weekly x 2 thereafter -if ongoing sodium concerns, pls refer for outpatient nephrology evaluation" Medication Changes From Visit Cefdinir 300 mg twice daily for 6 more days Doxycycline 100 mg twice daily for 6 more days Prednisone 40 mg daily for 2 more days Ferrous sulfate supplement daily Per patient request, nystatin swish and swallow Admission HPI Per Admitting Provider Angelina Ballard is a 73y/o F with PMHx significant for dyslipidemia, hypothyroidism, DM type II [on long-term insulin therapy], diabetic neuropathy, diabetic gastroparesis, CKD stage III, COPD, HTN, chronic diastolic congestive heart failure, moderate aortic stenosis, CAD, chronic liver disease and cirrhosis, portal hypertensive gastropathy, GERD, GONZALEZ/fatty liver, urinary incontinence [suprapubic catheter in place], Jljiphd-Oxwzm-Wledw disease and bipolar disorder who presented to the ED via EMS from [facility] [place] for evaluation secondary to SOB and generalized weakness. History obtained from patient and associated chart review. Patient was very lethargic during our conversation, however she did arouse to loud verbal stimuli. Patient endorses that she has had a productive cough and that she feels "confused." Denies any chest pain. It was difficult to obtain much of a history from her due to her mental status and waxing/waning attention span. I was however able to speak with her daughter, Carolyn, over the phone. She reports that the patient has been feeling increasingly tired and worn down over the past few days. When she went to visit her this morning, the patient was found to have a fever of 100.8F and appeared rather shaky. Carolyn reports that she did COVID test her at home 2 days ago and it was positive. She mentions that the patient did not even recognize her this morning and was calling her by the wrong name. She mentions that her oxygen saturation was around 87% when she took it this morning prior to calling EMS. Carolyn does report that she has been wheezing quite a bit and has been giving her albuterol nebulizer treatments more frequently recently. Patient was not on oxygen prior to arrival. Patient was notably hypoxic at 88% SpO2 on room air upon arrival to the ED. She was placed on 2L via nasal cannula with improvement to her O2 saturation % into the mid to upper 90s. Biofire negative. CXR shows faint airspace opacities in the bilateral perihilar region which may reflect an infectious/inflammatory process. Chest CT pending to assess for possible pneumonia. Admission Exam Per Admitting Provider General: WD/WN, vitals as above, NAD, sitting up in bed, A+O to situation with loud verbal stimuli and frequent redirection. HEENT: Normocephalic, atraumatic. PERRL, conjunctivae normal, anicteric sclerae. External ear and nose normal, oropharynx normal. Respiratory: Normal respiratory effort, lung sounds decreased bilaterally, some mild wheezing bilaterally, rales, rhonchi. No accessory muscle use. Cardiovascular: Regular rate, rhythm, no murmur, normal peripheral pulses, trace BLE edema. Vessels: No JVD. Abdomen/GI: Normal bowel sounds, soft, nontender, no hepatosplenomegaly. : Suprapubic catheter intact and draining clear, yellow urine without issue. Extremities/Musculoskeletal: No cyanosis or clubbing, extremities motor strength intact, BLE in braces d/t foot drop. Neurologic: EOMI, no focal deficits, CN's II-XI not formally tested but appear grossly intact bilaterally. Skin: No rashes, normal color, warm/dry. Discharge Exam General: Alert, oriented. No acute distress, obese Psych: Appropriate mood and affect Neuro: difficulty with movements in the bed HEENT: NC/AT CV: RRR Resp: Breath sounds clear bilaterally, no increased effort of breathing Abdomen: Soft, nontender Extremities:L>R edema in lower extremities bilaterally. Updated Medication List Medication Instructions Recorded Confirmed Type albuterol sulfate 90 mcg/actuation 2 inh inhalation Q6 PRN Shortness 02/07/23 04/20/24 History aerosol inhaler Of Breath Or Wheezing aripiprazole 2 mg tablet 2 mg PO QAM 02/07/23 04/20/24 History atorvastatin 40 mg tablet 40 mg PO QAM 02/07/23 04/20/24 History clonazepam 0.5 mg tablet 0.5 mg PO TID 02/07/23 04/20/24 History famotidine 20 mg tablet 40 mg PO QAM 02/07/23 04/20/24 History fluticasone propionate 50 2 spray intranasal DAILY 02/07/23 04/20/24 History mcg/actuation nasal spray,suspension (Flonase Allergy Relief) gabapentin 300 mg capsule 300 mg PO BID 02/07/23 04/20/24 History lamotrigine 100 mg tablet 100 mg PO QAM 02/07/23 04/20/24 History (Lamictal) lamotrigine 25 mg tablet (Lamictal) 25 mg PO QAM 02/07/23 04/20/24 History lamotrigine 25 mg tablet (Lamictal) 50 mg PO HS 02/07/23 04/20/24 History levothyroxine 88 mcg tablet 88 mcg PO QAM 02/07/23 04/20/24 History montelukast 10 mg tablet 10 mg PO DAILY 02/07/23 04/20/24 History nitroglycerin 0.4 mg sublingual 0.4 mg sublingual DIRECTED PRN 02/07/23 04/20/24 History tablet (Nitrostat) Chest Pain pantoprazole 40 mg tablet,delayed 40 mg PO AMPM 02/07/23 04/20/24 History release potassium chloride 20 mEq 20 meq PO QAM PRN when taking 02/07/23 04/20/24 History tablet,extended additional torsemide release(part/cryst) (Klor-Con M) rifaximin 550 mg tablet (Xifaxan) 550 mg PO BID 02/07/23 04/20/24 History tamsulosin 0.4 mg capsule 0.4 mg PO QAM 02/07/23 04/20/24 History torsemide 20 mg tablet 20 mg PO QAM 02/07/23 04/20/24 History trazodone 50 mg tablet 100 mg PO HS 02/07/23 04/20/24 History venlafaxine 150 mg 150 mg PO QAM 02/07/23 04/20/24 History capsule,extended release 24 hr venlafaxine 75 mg tablet,extended 75 mg PO QAM 02/07/23 04/20/24 History release 24 hr insulin glargine 100 unit/mL 35 unit subcut BID 05/09/23 04/20/24 History subcutaneous solution (Lantus U-100 Insulin) ascorbic acid (vitamin C) 500 mg 500 mg PO AMHS 05/12/23 04/20/24 History tablet (Vitamin C) aspirin 81 mg tablet,delayed 81 mg PO QAM 05/12/23 04/20/24 History release budesonide-formoterol HFA 160 2 puff inhalation AMHS 05/12/23 04/20/24 History mcg-4.5 mcg/actuation aerosol inhaler (Symbicort) dicyclomine 10 mg capsule 10 mg PO QID PRN Abdominal Pain 05/12/23 04/20/24 History metformin 500 mg tablet,extended 500 mg PO QDD 05/12/23 04/20/24 History release 24 hr nystatin 100,000 unit/gram topical 1 applic topical TID 05/12/23 04/20/24 History powder (Nyamy) ondansetron HCl 8 mg tablet 8 mg PO Q8 PRN Nausea 05/12/23 04/20/24 History oxybutynin chloride 10 mg 10 mg PO QAM 05/12/23 04/20/24 History tablet,extended release 24 hr spironolactone 50 mg tablet 50 mg PO AMHS 05/12/23 04/20/24 History lactulose 10 gram/15 mL oral 45 ml PO BID 03/02/24 04/20/24 History solution semaglutide 2 mg/dose (8 mg/3 mL) 2 mg subcut .WEEKLY 03/02/24 04/20/24 History subcutaneous pen injector (Ozempic) calcium 600 mg (as 1 tab PO DAILY #60 tabs 03/05/24 04/20/24 Rx carbonate)-vitamin D3 10 mcg (400 unit) tablet (Calcium 600 + D(3)) metoprolol succinate 25 mg 25 mg PO BID #60 tabs 03/05/24 04/20/24 Rx tablet,extended release 24 hr cefdinir 300 mg capsule 300 mg PO BID #12 caps 04/24/24 Rx doxycycline hyclate 100 mg capsule 100 mg PO BID #12 caps 04/24/24 Rx ferrous sulfate 325 mg (65 mg 325 mg PO QAM #30 tabs 04/24/24 Rx iron) tablet,delayed release nystatin 100,000 unit/mL oral 1 ml PO QID PRN oral thrush #40 mL 04/24/24 Rx suspension prednisone 20 mg tablet 40 mg (2 x 20 mg) PO DAILY #4 tabs 04/24/24 Rx Hospital Stay Data Consultations 04/20/24 16:39 ED Decision to Admit Stat 04/22/24 07:46 Consult Nephrology Routine Diagnostic Imagining Performed 04/20/24 16:56 CT chest diagnostic wo con Stat 04/20/24 17:[address] [CT head/brain wo con] Stat Chest X-Ray 04/20/24 13:53 XR chest 1V portable CLINICAL HISTORY: cough, hypoxia TECHNIQUE: Single frontal radiograph of the chest was obtained. Comparison: Comparison is made to chest radiograph 03/29/2024 FINDINGS: Median sternotomy wires are unchanged. Cardiomegaly is noted. Elevation of the right hemidiaphragm is seen. Faint airspace opacities are in the bilateral perihilar region. No evidence of pleural effusion or pneumothorax. IMPRESSION: Faint airspace opacities may reflect infectious/inflammatory process. ACT 112: Negative or not required by law. Electronically signed by: Joel Cuellar M.D. 04/20/2024 2:[address] 04/20/24 16:56 Exam(s): CT CHEST Without Contrast EXAM: CT Chest Without Intravenous Contrast CLINICAL HISTORY: Reason for exam: CXR c/f PNA. TECHNIQUE: Axial computed tomography images of the chest without intravenous contrast. CTDI is 37.69 mGy and DLP is 624.41 mGy-cm. Automated exposure control was utilized for the study. A dose lowering technique was utilized adhering to the principles of ALARA. COMPARISON: No relevant prior studies available. FINDINGS: Lungs: Subsegmental atelectasis in both lower lobes. No consolidation or mass. Possible small region of tree-in-bud infiltrate in the posterior right upper lobe (series 6, image 21), potentially pneumonitis/pneumonia. Pleural space: Unremarkable. No pneumothorax. No significant effusion. Heart: Previous sternotomy. Coronary artery atherosclerosis. No cardiomegaly or pericardial effusion. Aortic valvular calcification. Bones/joints: Osteopenia. No acute fracture or dislocation. Mild chronic T1 superior endplate compression fracture. Degenerative changes of the glenoid will joints, advanced on the right side. Soft tissues: Unremarkable. Vasculature: Thoracic aortic atherosclerosis without aneurysm. Lymph nodes: Unremarkable. No enlarged lymph nodes. Gallbladder and bile ducts: Cholecystectomy. Spleen: Splenomegaly measuring 16 cm. IMPRESSION: Possible small region of tree-in-bud infiltrate in the posterior right upper lobe (series 6, image 21), potentially pneumonitis/pneumonia. Electronically signed by: Denny Lim M.D. 04/20/24 19:[address] 04/20/24 17:24 CT SCAN OF THE BRAIN WITHOUT IV CONTRAST CLINICAL HISTORY: Change in mental status. Lethargy. COMPARISON STUDY: CT of the brain dated 05/12/2023. TECHNIQUE: Unenhanced axial CT scan of the brain is performed from the vertex to the skull base. A dose lowering technique was utilized adhering to the principles of ALARA. FINDINGS: Brain parenchyma: There is age-related involutional change noting mild to moderate subcortical and periventricular microangiopathic disease. There is no hemorrhage, mass effect, or evidence of acute territorial ischemia by CT criteria. There is a chronic lacunar infarct noted in the right thalamus. Garcia- white matter differentiation is preserved. No extra-axial fluid collection is seen. Ventricles, sulci, cisterns: Prominent secondary to involutional change. Intracranial vasculature: There is atherosclerotic calcification of the cavernous carotid and vertebral artery. Calvarium: Unremarkable. Sinuses and mastoids: The visualized paranasal sinuses are clear. The mastoid air cells are well pneumatized. Orbits: The bony orbits are grossly intact. There are bilateral ocular lens implants. IMPRESSION: There is no hemorrhage, mass effect, or evidence of acute territorial ischemia by CT criteria. ACT 112: Negative or not required by law. Electronically signed by: Berto Snow M.D. 04/20/2024 6:43 PM Discharge Instructions Given to Patient (Per Discharging Provider) Angelina, You are admitted and treated for a pneumonia. Your symptoms got better with antibiotics. We are discharging you home with an additional 6 days of the antibiotics cefdinir and doxycycline. Please take them as prescribed. We are also discharging you home with 2 more days of prednisone to help your breathing. Please take it as prescribed. we are also discharging you home with oral nystatin swish and swallow per your request. You were also seen by the [facility] specialist for low sodium levels. They recommend that you restrict your fluid amount daily to 1500 mL of fluids. they also recommend that you keep your sodium intake below 2 g every day. Please continue taking your home torsemide however stop taking your home Aldactone until you follow-up with either nephrology or your primary care provider after discharge. Again please keep close follow-up with nephrology after discharge. Your iron levels were low. Please continue with the iron supplement prescrib ed. Should you develop any constipation or gastrointestinal side effects consider taking it every other day. Your primary care provider can help you with that as well. Please also keep close follow up with your primary care provider after discharge. Please do not hesitate to come back to the emergency room if your symptoms worsen or return. It was a pleasure taking care of you while you were here. Total Time Total Time Spent Total Time Spent (In Minutes): 65
[2024-04-24 13:06] VITALS: BP 142/73; PULSE 74; RESP 16; O2SAT 95
== END 2024-04-24 14:32 | disposition home or self-care (01) | DRG 871 ==
LOC: ED 12:55 → SUATTDRO 16:53 → 2W 16:53

== ENCOUNTER 2024-05-24 10:38 | Inpatient (IN) ==
--- NOTE | 2024-05-24 11:21 | Emergency Department Note ---
Impression & Plan Acute alteration in mental status, Acute UTI, Weakness ED Provider Note NAME: GILES SLOAN AGE: 73 SEX: F : 1950 ARRIVES VIA: Ambulance INFORMANT: Patient ED PROVIDER(S): Holland Harper DO CHIEF COMPLAINT: confusion HPI: Patient is a 73-year-old female who presents to the ER with past medical history of SVT, NSTEMI, CAD, CHF who presents to the ER for confusion. History is per nurse who spoke with daughter who notes that the patient has been confused today. Patient is unable to provide any history other than she has no head pain chest pain or belly pain. ADDITIONAL HISTORY OBTAINED: Per HPI Chronic Medical/Social Conditions Affecting Care: Per HPI PAST MEDICAL HISTORY:See Below PAST SURGICAL HISTORY:See Below FAMILY HISTORY:See Below SOCIAL HISTORY:See Below HOME MEDICATIONS:See Below ALLERGIES:See Below VITALS:See Below PHYSICAL EXAMINATION: GENERAL: Sitting up in bed, alert, conically ill-appearing, disheveled EYE EXAM: normal conjunctiva. [PERRL and EOM's grossly intact.] OROPHARYNX: no exudate, no erythema, lips, buccal mucosa, and tongue normal and mucous membranes are moist NECK: supple, no nuchal rigidity, no adenopathy, non-tender LUNGS: Clear to auscultation. Normal chest wall mechanics HEART: no murmurs, S1 normal and S2 normal ABDOMEN: abdomen soft, non-tender, normo-active bowel sounds, no masses, no rebound or guarding. : Gallagher in place UPPER EXTREMITIES: upper extremities are grossly normal. LOWER EXTREMITIES: No pitting edema. NEURO EXAM: Oriented person but not place or year, cranial nerves II-XII intact, normal speech, no weakness of arms, no weakness of legs. MEDICAL DECISION MAKING: Patient is a 73-year-old female who presents to the ER for the above-stated complaint. IV was established and blood work was obtained. Labs show a leukocytosis of 20,000. Hemoglobin is 16. BMP with a hyponatremia at 129 and hypokalemia 2.8. Creatinine 1.6. Troponin was mildly elevated. UA does suggest a UTI. External records including cultures were reviewed. After discussion with pharmacist we agreed with meropenem due to previous cultures. Patient was given IV fluids. She is updated bedside. CT head was negative. Chest x-ray is unremarkable. Patient was admitted for further workup of her confusion. Ammonia was ordered per the request of the daughter. Consults/Care Managements Discussions: Per MDM Triage Nursing notes reviewed. Limited review of prior medical records performed Vital Signs: reviewed and remarkable for no significant abnormalities Differential diagnosis: Differential diagnoses includes but is not limited to toxic, metabolic, infectious, traumatic, cardiac, neurologic, hematologic, psychiatric and inflammatory etiologies. ER treatment provided: See below Diagnostics interpreted by me include EKG and cardiac monitoring as listed below: -Cardiac Monitoring: An order was placed for continuous cardiac monitoring. The monitor shows a rate of 98 with sinus rhythm. -ECG: Sinus rhythm rate of 92 Left axis No PVCs QTc 467 -Laboratory studies:Interpreted by me as stated above in MDM and shown below. Imaging studies: Xrays: As interpreted by me: Portable AP upright 1 view of the chest shows no focal infiltrate CTs show: CT of the head was negative per radiology Procedures: None Critical Care: None Past Med/Surg History Problem List (Updated 05/24/24 @ 17:21 by Holland Harper DO) Acute alteration in mental status (Acute) Pneumonia (Acute) Acute hypoxic respiratory failure Generalized weakness (Acute) (HFpEF) heart failure with preserved ejection fraction Aortic stenosis ASCVD (arteriosclerotic cardiovascular disease) Hypomagnesemia (Acute) Hyponatremia (Acute) Acute dehydration (Acute) Elevated troponin (Acute) Acute UTI (Acute) SVT (supraventricular tachycardia) (Acute) SVT (supraventricular tachycardia) Non-ST elevation SC (NSTEMI) (Acute) Acute confusion (Acute) Fracture of femur, distal, left, closed Encephalopathy (Acute) Non-ST elevation SC (NSTEMI) (Acute) Acute hyponatremia (Acute) Hypocalcemia (Acute) Postoperative anemia Sepsis associated hypotension Edema leg Chronic heart failure with preserved ejection fraction CAD (coronary artery disease), lumbee coronary artery Preop cardiovascular exam Abdominal distension Femoral distal fracture (Acute) Fall (Acute) Abnormal ankle brachial index Diabetic foot ulcer DVT prophylaxis UTI (urinary tract infection) (Acute) Failure of outpatient treatment (Acute) Flank pain (Acute) Urinary tract infection due to ESBL Klebsiella Hyponatremia Encounter for pre-operative examination Pyelonephritis (Acute) Acute UTI (Acute) Weakness (Acute) Pneumonia (Acute) Confusion (Acute) Encounter for rehabilitation evaluation Fever Cough CAP (community acquired pneumonia) Elevated troponin Hypomagnesemia Sepsis (Acute) Pneumonia (Acute) Fever (Acute) Hypoxia (Acute) Cirrhosis of liver not due to alcohol Demand ischemia Unstable angina Chest pain (Acute) Blood glucose elevated (Acute) Discharge planning issues Altered mental status Fall (Acute) CHI (closed head injury) (Acute) Weakness (Acute) Abdominal pain (Acute) Candidal UTI (urinary tract infection) H/O urinary retention COVID-19 (Acute) Fall (Acute) Ambulatory dysfunction Recurrent falls Ambulatory dysfunction (Acute) 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 (Acute) Closed hip fracture (Acute) Hip fracture, left S/P hip hemiarthroplasty Acute on chronic diastolic heart failure with preserved ejection fraction Infection due to ESBL-producing Escherichia coli Acute blood loss anemia Elevated troponin (Acute) Encephalopathy Left hip pain Left hip hemiarthroplasty 02/05/2022 Chronic low back pain Encephalopathy (Acute) d/c from [facility] 09/20/19 (hepatic encephalopathy) Chronic pain syndrome S/P CABG x 1 (Chronic) 2010 - single vessel S/P CARLOS (total abdominal hysterectomy) (Chronic) Hx of cholecystectomy (Chronic) History of back surgery (Chronic) sacral area History of appendectomy (Chronic) History of total right knee replacement (Chronic) Anxiety (Chronic) Bipolar disorder (Chronic) [id number] disease (Chronic) follows w/ Dr. Lemus LEG WEAKNESS CURRENT PT/OT FOR - BRACES B/L LEGS Gastroparesis (Chronic) Portal hypertensive gastropathy (Chronic) GONZALEZ (nonalcoholic steatohepatitis) (Chronic) Moderate aortic stenosis (Chronic) Chronic diastolic CHF (congestive heart failure) (Chronic) Hypertension (Chronic) CAD (coronary artery disease) (Chronic) History of multiple PCI's to the RCA with subsequent CABG x1 in 2010 x 1 vessel Most recent cardiac testing-negative DSE in December 2017 Follows w/ Dr. Blackwell and Dr. Lucas DM type 2 (diabetes mellitus, type 2) (Chronic) IDDM Hypothyroidism (Chronic) Dyslipidemia (Chronic) Medical History Cardiac arrest pt states she was told she went into cardiac arrest during her hip surgery in 02/2022 at [facility] and was "revived". no other details were given. Palpitations occasionally -- pt states since her metoprolol has been decreased. Cough started about 8 months ago s/p covid-19 virus -- currently treating with augmentin PO bid and prednisone. prednisone to end 05/27/22 and abx to finish on 06/01/22 Hx of fall pt. fell in the bathroom at home, pt. wasn't aware of what happen but was told this by her family 02/05/2022 History of anesthesia reaction REMOTE HX, SIDE EFFECTS : ANXIETY AND SEVERE N/V History of COVID-19 may or june 2021, has cough since. SOB (shortness of breath) SINCE COVID / 6-8 MON AGO, SOB, COUGH...NO DX...HAS VISIT WITH PULM UPCOMING TO EVALUATE Urinary incontinence UTI (urinary tract infection) FREQUENT/PREVENTATIVE ABX'S CURRENTLY MOST RECENT UTI JANUARY 04 - ABX COMPLETE - ON CURRENT PROPHYLACTIC TX Irregular heart beat follows Dr. 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 Lucas History of cardiac cath multiple - most recent - 2 years ago @ [facility] Family History Father Coronary heart disease Brother Coronary heart disease Father No problems noted. Mother No problems noted. Other No family history of adverse response to anesthesia Social History Smoking Status: Never smoker Tobacco Type: Cigarettes Second Hand Exposure: Yes; Do You Dip or Chew Tobacco: No; Hx Alcohol Use: No Hx Substance Use: No Preferred Language: Japanese Communication Ability: Disoriente Visual Impairment: Partially Limited Hearing Ability: Hard of Hearing Clinical Trials Assistant Required: No Beliefs That Will Affect Care: None marital status: / Current Living Situation: Correction Current Living Situation Comment: [facility] How many Children do You have: 3 Feels Safe at Home: Yes Diet: low carbohydrate and low salt caffeine: No Assistive Devices: Hospital Bed, Lift Chair, Walker and Wheelchair Allergies Allergies Allergy/AdvReac Type Severity Reaction Status Date / Time propoxyphene Allergy Intermediate Rash Verified 05/24/24 16:33 fentanyl AdvReac Intermediate PANIC Verified 05/24/24 16:33 WANTS TO RUN AND AGGRESSIVE methocarbamol AdvReac Intermediate DELERIUM Verified 05/24/24 16:33 zolpidem AdvReac Intermediate confusion Verified 05/09/23 13:18 Home Meds Home Medications Medication Instructions Recorded Confirmed albuterol sulfate 90 mcg/actuation 2 inh inhalation Q6 PRN Shortness 02/07/23 05/24/24 aerosol inhaler Of Breath Or Wheezing clonazepam 0.5 mg tablet 0.5 mg PO TID 02/07/23 05/24/24 famotidine 20 mg tablet 40 mg PO QAM 02/07/23 05/24/24 fluticasone propionate 50 2 spray intranasal DAILY 02/07/23 05/24/24 mcg/actuation nasal spray,suspension (Flonase Allergy Relief) gabapentin 300 mg capsule 300 mg PO BID 02/07/23 05/24/24 lamotrigine 100 mg tablet 100 mg PO UD 02/07/23 05/24/24 (Lamictal) lamotrigine 25 mg tablet (Lamictal) 25 mg PO UD 02/07/23 05/24/24 lamotrigine 25 mg tablet (Lamictal) 50 mg PO HS 02/07/23 05/24/24 levothyroxine 88 mcg tablet 88 mcg PO QAM 02/07/23 05/24/24 montelukast 10 mg tablet 10 mg PO DAILY 02/07/23 05/24/24 nitroglycerin 0.4 mg sublingual 0.4 mg sublingual DIRECTED PRN 02/07/23 05/24/24 tablet (Nitrostat) Chest Pain pantoprazole 40 mg tablet,delayed 40 mg PO AMPM 02/07/23 05/24/24 release potassium chloride 20 mEq 20 meq PO QAM PRN when taking 02/07/23 05/24/24 tablet,extended additional torsemide release(part/cryst) (Klor-Con M) rifaximin 550 mg tablet (Xifaxan) 550 mg PO BID 02/07/23 05/24/24 tamsulosin 0.4 mg capsule 0.4 mg PO QAM 02/07/23 05/24/24 torsemide 20 mg tablet 20 mg PO QAM 02/07/23 05/24/24 trazodone 50 mg tablet 75 mg PO HS 02/07/23 05/24/24 venlafaxine 150 mg 150 mg PO UD 02/07/23 05/24/24 capsule,extended release 24 hr venlafaxine 75 mg tablet,extended 75 mg PO UD 02/07/23 05/24/24 release 24 hr insulin glargine 100 unit/mL 35 unit subcut BID 05/09/23 05/24/24 subcutaneous solution (Lantus U-100 Insulin) ascorbic acid (vitamin C) 500 mg 500 mg PO AMHS 05/12/23 05/24/24 tablet (Vitamin C) aspirin 81 mg tablet,delayed 81 mg PO QAM 05/12/23 05/24/24 release dicyclomine 10 mg capsule 10 mg PO QID PRN Abdominal Pain 05/12/23 05/24/24 metformin 500 mg tablet,extended 500 mg PO QDD 05/12/23 05/24/24 release 24 hr nystatin 100,000 unit/gram topical 1 applic topical TID 05/12/23 05/24/24 powder ([facility]) oxybutynin chloride 10 mg 10 mg PO QAM 05/12/23 05/24/24 tablet,extended release 24 hr spironolactone 50 mg tablet 50 mg PO AMHS 05/12/23 05/24/24 semaglutide 2 mg/dose (8 mg/3 mL) 2 mg subcut .WEEKLY 03/02/24 05/24/24 subcutaneous pen injector (Ozempic) aripiprazole 5 mg tablet 5 mg PO DAILY 05/24/24 05/24/24 cetirizine 10 mg tablet 10 mg PO DAILY 05/24/24 05/24/24 ergocalciferol (vitamin D2) 1,250 50,000 unit PO WK 05/24/24 05/24/24 mcg (50,000 unit) capsule famotidine 40 mg tablet 40 mg PO DAILY 05/24/24 05/24/24 hydroxyzine HCl 10 mg tablet 10 mg PO TID 05/24/24 05/24/24 Previous Rx's Medication Instructions Recorded calcium 600 mg (as 1 tab PO DAILY #60 tabs 03/05/24 carbonate)-vitamin D3 10 mcg (400 unit) tablet (Calcium 600 + D(3)) metoprolol succinate 25 mg 25 mg PO BID #60 tabs 03/05/24 tablet,extended release 24 hr ferrous sulfate 325 mg (65 mg 325 mg PO QAM #30 tabs 04/24/24 iron) tablet,delayed release nystatin 100,000 unit/mL oral 1 ml PO QID PRN oral thrush #40 mL 04/24/24 suspension Results & Data (ED) Vital Signs Vital Signs - 24 hr 05/24/24 10:50 05/24/24 10:50 05/24/24 10:50 Temperature 37.1 C 37.1 C Temperature Source Oral Oral Pulse Rate 93 H Pulse Rate [Apical] 94 H Respiratory Rate 25 H 21 Respiratory Effort / Characteristics Non-Labored Respiratory Depth Normal Normal Respiratory Pattern Blood Pressure 108/84 Blood Pressure [Right Arm] 108/84 Blood Pressure Mean 92 Blood Pressure Mean [Right Arm] 92 Blood Pressure Position Semi-fowlers Blood Pressure Position [Right Arm] Semi-fowlers Pulse Oximetry 95 93 93 Oxygen Delivery Method Room Air Room Air Room Air Oxygen Flow Rate 0 Sepsis Recent Fever Within 48 Hours No Sepsis New/Unexplained Change in Mental Status N/A Sepsis Action Taken by Nursing No Action Required 05/24/24 11:17 05/24/24 12:17 05/24/24 12:32 Temperature Temperature Source Pulse Rate 91 H 93 H Pulse Rate [Apical] 95 H Respiratory Rate 27 H 24 Respiratory Effort / Characteristics Non-Labored Spontaneous Respiratory Depth Normal Respiratory Pattern Blood Pressure Blood Pressure [Right Arm] 140/82 Blood Pressure Mean Blood Pressure Mean [Right Arm] 101 Blood Pressure Position Blood Pressure Position [Right Arm] Semi-fowlers Pulse Oximetry 95 92 Oxygen Delivery Method Room Air Room Air Oxygen Flow Rate Sepsis Recent Fever Within 48 Hours Sepsis New/Unexplained Change in Mental Status Sepsis Action Taken by Nursing 05/24/24 14:00 05/24/24 16:13 Temperature Temperature Source Pulse Rate 96 H Pulse Rate [Apical] 77 Respiratory Rate 13 Respiratory Effort / Characteristics Non-Labored Spontaneous Respiratory Depth Normal Respiratory Pattern Regular Blood Pressure Blood Pressure [Right Arm] 119/69 Blood Pressure Mean Blood Pressure Mean [Right Arm] 85 Blood Pressure Position Blood Pressure Position [Right Arm] Pulse Oximetry 91 Oxygen Delivery Method Oxygen Flow Rate Sepsis Recent Fever Within 48 Hours Sepsis New/Unexplained Change in Mental Status Sepsis Action Taken by Nursing Laboratory Data 05/24/24 11:42 05/24/24 11:42 Lab Results 05/24/24 05/24/24 05/24/24 Range/Units 11:41 11:42 11:44 WBC 20.72 H (4.8-10.8) K/ul RBC 5.85 H (4.20-5.40) M/uL Hgb 16.2 H (12.0-16.0) g/dl Hct 46.4 (37.0-47.0) % MCV 79.3 L (80.0-100.0) fL MCH 27.7 (25.0-34.0) pg MCHC 34.9 (32.0-36.0) g/dL RDW Std Deviation 45.1 (36.4-46.3) fL RDW Coeff of Guillermo 17.2 H (11.5-14.5) % Plt Count 150 (130-400) K/uL MPV 9.9 (9.4-12.4) fL Immature Gran % (Auto) 3.0 % Neut % (Auto) 74.6 % Lymph % (Auto) 14.3 % [place] % (Auto) 7.2 % Eos % (Auto) 0.5 % Baso % (Auto) 0.4 % Neut # (Auto) 15.45 H (1.40-6.50) K/uL Lymph # (Auto) 2.96 (1.20-3.40) K/uL [place] # (Auto) 1.49 H (0.11-0.59) K/uL Eos # (Auto) 0.10 (0.00-0.50) K/uL Baso # (Auto) 0.09 (0.00-0.20) K/uL Immature Gran # (Auto) 0.63 H (0.01-0.20) K/uL Sodium 129 L (136-145) mmol/L Potassium 2.9 L (3.5-5.1) mmol/L Chloride 86 L (98-107) mmol/L Carbon Dioxide 30 (21-32) mmol/L Anion Gap 13 H (3-11) BUN 28 H (6-23) mg/dl Creatinine 1.68 H (0.6-1.2) mg/dl Est Cr Clr Drug Dosing Not Reportable eGFR 31.72 BUN/Creatinine Ratio 16.7 (10-20) Glucose 228 H (70-99(Fasting)) mg/dl POC Glucose 234 H (70-99) mg/dl Calcium 10.2 (8.6-10.3) mg/dl Total Bilirubin 1.7 H (0.2-1.0) mg/dl AST 24 (13-39) U/L ALT 37 (7-52) U/L Alkaline Phosphatase 177 H (34-104) U/L Troponin I High Sens 28.2 H (0-14) pg/ml Total Protein 6.8 (6.0-8.3) gm/dl Albumin 3.8 (3.4-5.0) gm/dl Globulin 3.0 (2.5-4.0) gm/dl Albumin/Globulin Ratio 1.3 (0.9-2) Lipase 16 (11-82) U/L Procalcitonin (0-0.5) ng/ml Urine Color Yellow Urine Appearance Cloudy A (Clear) Urine pH 6.0 (4.5-7.5) Ur Specific [place] 1.009 (1.000-1.030) Urine Protein Negative (Negative) Urine Glucose (UA) Negative (Negative) Urine Ketones Negative (Negative) Urine Blood 2+ H (Negative) Urine Nitrite Negative (Negative) Urine Bilirubin Negative (Negative) Urine Urobilinogen Negative (Negative) Ur Leukocyte Esterase 3+ H (Negative) Urine WBC (Auto) >50 H (0-5) /hpf Urine RBC (Auto) 3-5 H (0-2) /hpf U Hyaline Cast (Auto) 11-20 H (0-2) /lpf U Epithel Cells (Auto) 6-10 H (0-2) /hpf Urine Bacteria (Auto) 4+ H (None Seen) 05/24/24 05/24/24 Range/Units 11:52 14:10 WBC (4.8-10.8) K/ul RBC (4.20-5.40) M/uL Hgb (12.0-16.0) g/dl Hct (37.0-47.0) % MCV (80.0-100.0) fL MCH (25.0-34.0) pg MCHC (32.0-36.0) g/dL RDW Std Deviation (36.4-46.3) fL RDW Coeff of Guillermo (11.5-14.5) % Plt Count (130-400) K/uL MPV (9.4-12.4) fL Immature Gran % (Auto) % Neut % (Auto) % Lymph % (Auto) % [place] % (Auto) % Eos % (Auto) % Baso % (Auto) % Neut # (Auto) (1.40-6.50) K/uL Lymph # (Auto) (1.20-3.40) K/uL [place] # (Auto) (0.11-0.59) K/uL Eos # (Auto) (0.00-0.50) K/uL Baso # (Auto) (0.00-0.20) K/uL Immature Gran # (Auto) (0.01-0.20) K/uL Sodium (136-145) mmol/L Potassium (3.5-5.1) mmol/L Chloride (98-107) mmol/L Carbon Dioxide (21-32) mmol/L Anion Gap (3-11) BUN (6-23) mg/dl Creatinine (0.6-1.2) mg/dl Est Cr Clr Drug Dosing eGFR BUN/Creatinine Ratio (10-20) Glucose (70-99(Fasting)) mg/dl POC Glucose (70-99) mg/dl Calcium (8.6-10.3) mg/dl Total Bilirubin (0.2-1.0) mg/dl AST (13-39) U/L ALT (7-52) U/L Alkaline Phosphatase (34-104) U/L Troponin I High Sens 29.0 H (0-14) pg/ml Total Protein (6.0-8.3) gm/dl Albumin (3.4-5.0) gm/dl Globulin (2.5-4.0) gm/dl Albumin/Globulin Ratio (0.9-2) Lipase (11-82) U/L Procalcitonin 0.14 (0-0.5) ng/ml Urine Color Urine Appearance (Clear) Urine pH (4.5-7.5) Ur Specific [place] (1.000-1.030) Urine Protein (Negative) Urine Glucose (UA) (Negative) Urine Ketones (Negative) Urine Blood (Negative) Urine Nitrite (Negative) Urine Bilirubin (Negative) Urine Urobilinogen (Negative) Ur Leukocyte Esterase (Negative) Urine WBC (Auto) (0-5) /hpf Urine RBC (Auto) (0-2) /hpf U Hyaline Cast (Auto) (0-2) /lpf U Epithel Cells (Auto) (0-2) /hpf Urine Bacteria (Auto) (None Seen) Administered Medications Discontinued Medications Sodium Chloride (Nss) 1,000 mls @ 999 mls/hr IV .Q1H1M ONE Stop: 05/24/24 12:16 Last Infusion: 05/24/24 12:25 Dose: Infused Documented By: Admin: 05/24/24 11:24 Dose: 999 mls/hr Documented By: [facility] [place] Meropenem 500 mg/ Syringe 10 mls @ 2 mls/min IV Q8H ANGELLA; Protocol Stop: 05/26/24 12:44 Last Admin: 05/24/24 14:16 Dose: 2 mls/min Documented By: [facility] [place] Potassium Chloride (K Micky / Wtr) 10 meq in 100 mls @ 100 mls/hr IV ONE ONE; Protocol Stop: 05/24/24 13:44 Last Infusion: 05/24/24 15:07 Dose: Infused Documented By: [facility] [place] Admin: 05/24/24 13:32 Dose: 100 mls/hr Documented By: [facility] [place] Imaging Data Radiologist's Impression: Chest X-Ray 05/24/24 11:07 XR chest 1V portable CLINICAL HISTORY: Chest pain, nonspecific COMPARISON STUDY: Chest radiograph and chest CT April 20, 2024. FINDINGS: Elevation of the right hemidiaphragm is unchanged. Low lung volumes are again noted. There are median sternotomy wires. Cardiomediastinal silhouette is stable. There is no lobar consolidation. There is no evidence for pulmonary edema. There is no pneumothorax or pleural effusion. IMPRESSION: 1. No acute cardiopulmonary findings. 2. No change in low lung volumes with elevation of the right hemidiaphragm. ACT 112: Negative or not required by law. Electronically signed by: Mu Bonds M.D. 05/24/2024 11:[address] 05/24/24 11:16 CT head/brain wo con CLINICAL HISTORY: 73 years-old Female with russell. Acute headache TECHNIQUE: Multiple axial CT images of the head were obtained without contrast. A dose lowering technique was utilized adhering to the principles of ALARA. CT DOSE: 703.85 mGy.cm COMPARISON: 04/20/2024 FINDINGS: No acute intracranial hemorrhage, midline shift, intracranial mass, hydrocephalus, territorial ischemia or abnormal extra-axial collection. Involutional changes with chronic microvascular ischemic disease and cerebral vascular calcifications. Unchanged appearance of the chronic right basal ganglia lacunar infarct. The calvarium is intact. The paranasal sinuses, mastoid air cells, and middle ear cavities are clear. IMPRESSION: No acute intracranial abnormality. ACT 112: Negative or not required by law. The above report was generated using voice recognition software. It may contain grammatical, syntax or spelling errors. Electronically signed by: Tommie Loredo M.D. 05/24/2024 11:47 AM Discharge Plan Visit Data Chief Complaint: Altered Mental Status Stated Complaint: AMS ED Provider: Holland Harper Discharge Problem: Acute alteration in mental status, Acute UTI, Weakness Forms Stand Alone Forms: My [facility] Prescriptions Prescriptions: No Action torsemide 20 mg tablet 20 mg PO QAM Rx Instructions: May take 1 additional tablet as needed for swelling. trazodone 50 mg Tablet 75 mg PO HS clonazepam 0.5 mg tablet 0.5 mg PO TID Hold Instructions: Resume on 05/20/23. Till you see your primary care doctor. venlafaxine 150 mg capsule,extended release 24hr 150 mg PO UD Rx Instructions: Take 150mg w/ 75mg to equal 225mg by mouth every morning lamotrigine [Lamictal] 25 mg Tablet 25 mg PO UD Rx Instructions: Take 25mg w/ 100mg to equal 125mg by mouth every morning lamotrigine [Lamictal] 25 mg Tablet 50 mg PO HS levothyroxine 88 mcg tablet 88 mcg PO QAM potassium chloride [Klor-Con M20] 20 mEq tablet,ER particles/crystals 20 meq PO QAM PRN (Reason: when taking additional torsemide) famotidine 20 mg Tablet 40 mg PO QAM tamsulosin 0.4 mg Capsule 0.4 mg PO QAM pantoprazole 40 mg tablet,delayed release (DR/EC) 40 mg PO AMPM nitroglycerin [Nitrostat] 0.4 mg Tablet, Sublingual 0.4 mg sublingual DIRECTED MDD 3 tablets in 15 minutes PRN (Reason: Chest Pain) Rx Instructions: Q 5 MIN PRN chest pain. gabapentin 300 mg Capsule 300 mg PO BID montelukast 10 mg tablet 10 mg PO DAILY albuterol sulfate 90 mcg/actuation Hfa Aerosol Inhaler 2 inh INHALATION Q6 PRN (Reason: Shortness Of Breath Or Wheezing) fluticasone propionate [Flonase Allergy Relief] 50 mcg/actuation [place],Suspension 2 spray INTRANASAL DAILY Rx Instructions: Unable to verify OTC meds at this date/time. lamotrigine [Lamictal] 100 mg Tablet 100 mg PO UD Rx Instructions: Take 100mg w/ 25mg to equal 125mg by mouth every morning venlafaxine 75 mg Tablet Extended Release 24hr 75 mg PO UD Rx Instructions: Take 75mg w/ 150mg to equal 225mg by mouth every morning Xifaxan 550 mg tablet 550 mg PO BID insulin glargine [Lantus U-100 Insulin] 100 unit/mL solution 35 unit SUBCUT BID aspirin 81 mg tablet,delayed release (DR/EC) 81 mg PO QAM Rx Instructions: Unable to verify OTC meds at this date/time. oxybutynin chloride 10 mg tablet extended release 24hr 10 mg PO QAM ascorbic acid (vitamin C) [Vitamin C] 500 mg tablet 500 mg PO AMHS metformin 500 mg tablet extended release 24 hr 500 mg PO QDD spironolactone 50 mg tablet 50 mg PO AMHS Hold Instructions: until pcp or nephrology follow up nystatin [Nyamyc] 100,000 unit/gram powder 1 applic TOPICAL TID Rx Instructions: Apply to right breast until rash resolved. dicyclomine 10 mg Capsule 10 mg PO QID PRN (Reason: Abdominal Pain) ferrous sulfate 325 mg (65 mg iron) Tablet,Delayed Release (Dr/Ec) 325 mg PO QAM Qty: 30 0RF nystatin 100,000 unit/mL suspension 1 ml PO QID PRN (Reason: oral thrush) Qty: 40 0RF Rx Instructions: swish and swallow Ozempic 2 mg/dose (8 mg/3 mL) pen injector 2 mg SUBCUT .WEEKLY metoprolol succinate 25 mg Tablet Extended Release 24 Hr 25 mg PO BID Qty: 60 0RF calcium carbonate-vitamin D3 [Calcium 600 + D(3)] 600 mg-10 mcg (400 unit) tablet 1 tab PO DAILY Qty: 60 0RF Rx Instructions: Unable to verify OTC meds at this date/time. aripiprazole 5 mg tablet 5 mg PO DAILY cetirizine 10 mg tablet 10 mg PO DAILY famotidine 40 mg tablet 40 mg PO DAILY ergocalciferol (vitamin D2) 1,250 mcg (50,000 unit) capsule 50,000 unit PO WK hydroxyzine HCl 10 mg tablet 10 mg PO TID Referrals Referrals: Brian Domínguez MD [Primary Care Provider] -
[2024-05-24] MEDS: SODIUM CHLORIDE 0.9% 1,000 ML IV ONE (11:24)
--- NOTE | 2024-05-24 11:49 | CT Scan Report ---
CT head/brain wo con CLINICAL HISTORY: 73 years-old Female with russell. Acute headache TECHNIQUE: Multiple axial CT images of the head were obtained without contrast. A dose lowering tech nique was utilized adhering to the principles of ALARA. CT DOSE: 703.85 mGy.cm COMPARISON: 04/20/2024 FINDINGS: No acute intracranial hemorrhage, midline shift, intracranial mass, hydrocephalus, territorial ischem ia or abnormal extra-axial collection. Involutional changes with chronic microvascular ischemic disea se and cerebral vascular calcifications. Unchanged appearance of the chronic right basal ganglia lacu alice infarct. The calvarium is intact. The paranasal sinuses, mastoid air cells, and middle ear cavities are clear . IMPRESSION: No acute intracranial abnormality. ACT 112: Negative or not required by law. The above report was generated using voice recognition software. It may contain grammatical, syntax o r spelling errors. Electronically signed by: Tommie Loredo M.D. 05/24/2024 11:47 AM
--- NOTE | 2024-05-24 12:00 | XRay Report ---
XR chest 1V portable CLINICAL HISTORY: Chest pain, nonspecific COMPARISON STUDY: Chest radiograph and chest CT April 20, 2024. FINDINGS: Elevation of the right hemidiaphragm is unchanged. Low lung volumes are again noted. There are median sternotomy wires. Cardiomediastinal silhouette is stable. There is no lobar consolidation. There is no evidence for pulmonary edema. There is no pneumothorax or pleural effusion. IMPRESSION: 1. No acute cardiopulmonary findings. 2. No change in low lung volumes with elevation of the right hemidiaphragm. ACT 112: Negative or not required by law. Electronically signed by: Mu Bonds M.D. 05/24/2024 11:58 AM
[2024-05-24 12:08] LABS: Basophils # (auto) 0.09 K/uL (0.00-0.20); Basophils % (auto) 0.4 %; Eosinophils % (auto) 0.5 %; Hematocrit (blood only) 46.4 % (37.0-47.0); Hemoglobin 16.2 g/dl (12.0-16.0); Immature Granulocytes # (auto) 0.63 K/uL (0.01-0.20); Lymphocytes # (auto) 2.96 K/uL (1.20-3.40); Lymphocytes % (auto) 14.3 %; Mean Corpuscular Hemoglobin 27.7 pg (25.0-34.0); Mean Corpuscular Hgb Conc 34.9 g/dL (32.0-36.0); Mean Corpuscular Volume 79.3 fL (80.0-100.0); Mean Platelet Volume 9.9 fL (9.4-12.4); Monocytes # (auto) 1.49 K/uL (0.11-0.59); Monocytes % (auto) 7.2 %; Neutrophils # (auto) 15.45 K/uL (1.40-6.50); Neutrophils % (auto) 74.6 %; Platelet Count 150 K/uL (130-400); RDW Coefficient of Variation 17.2 % (11.5-14.5); RDW Standard Deviation 45.1 fL (36.4-46.3); Red Blood Count 5.85 M/uL (4.20-5.40); White Blood Count 20.72 K/ul (4.8-10.8)
[2024-05-24 12:22] LABS: Appearance Urine Cloudy (Clear); Bacteria Urine Automated 4+ (None Seen); Bilirubin Urine Negative (Negative); Blood Urine 2+ (Negative); Color Urine Yellow; Glucose Urine UA Negative (Negative); Ketones Urine Negative (Negative); Leukocyte Esterase Urine 3+ (Negative); Nitrite Urine Negative (Negative); Protein Urine Negative (Negative); Specific Gravity Urine 1.009 (1.000-1.030); Urobilinogen Urine Negative (Negative); WBC Urine Automated >50 /hpf (0-5)
[2024-05-24 12:25] LABS: Alanine Aminotransferase 37 U/L (7-52); Albumin Globulin Ratio 1.3 (0.9-2); Albumin Level 3.8 gm/dl (3.4-5.0); Alkaline Phosphatase 177 U/L (34-104); Anion Gap 13 (3-11); Aspartate Aminotransferase 24 U/L (13-39); BUN Creatinine Ratio 16.7 (10-20); Bilirubin,Total 1.7 mg/dl (0.2-1.0); Blood Urea Nitrogen 28 mg/dl (6-23); Calcium 10.2 mg/dl (8.6-10.3); Carbon Dioxide 30 mmol/L (21-32); Chloride 86 mmol/L (98-107); Glucose 228 mg/dl (70-99(Fasting)); Lipase 16 U/L (11-82); Potassium 2.9 mmol/L (3.5-5.1); Sodium 129 mmol/L (136-145); Total Protein 6.8 gm/dl (6.0-8.3)
[2024-05-24 12:32] LABS: Troponin I High Sensitivity 28.2 pg/ml (0-14)
[2024-05-24] MEDS: POTASSIUM CHLORIDE / WTR 10 MEQ/100 ML PLCT IV ONE (13:32)
[2024-05-24] MEDS: MEROPENEM 500 MG in SYRINGE 0 ML IV SCH ×2 (14:16→21:52)
--- NOTE | 2024-05-24 14:58 | History & Physical Report ---
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 History of frequent UTIs, had an abnormal UA in the ED, last suprapubic cath change was 04/08/24. Labs significant for creatinine of 1.68 (baseline 1.1), potassium 2.9, initial troponin 28.2, repeat troponin 29.0. #Acute confusion #Recurrent UTIs #CEE (baseline creatinine 1.1) Admit to med telemetry Urine culture pending - will cover with meropenem due to history of ESBL UTI Will give IVF x 1 liter, encourage oral intake Labs in the AM - CBC, BMP #Hypokalemia ED provider gave 10 mEq KCL IV. Ordered additional 40 mg mEq x 1. Recheck in the AM Check Mag tonight and replete if needed #Insulin-requiring Diabetes type 2 #Diabetic neuropathy Basal insulin with sliding scale coverage Diabetic diet BSG ACHS #Elevated troponin - suspect secondary to CEE/demand ischemia in the setting of significant infection #CAD Trend troponin EKG in the AM Continue other home medications as appropriate. Pt seen and reviewed with collaborating physician, Dr. Fitch. Plan of care discussed and as outlined above. Code status: Full code DVT Prophylaxis: subQ heparin Admit to med telemetry Ten Hoffmann PA-C History of Present Illness Chief Complaint: confusion Primary Care Provider: Brian Domínguez MD This is a 73 y/o female with insulin-requiring DM2 with associated neuropathy and gastroparesis, CAD s/p CABG, GONZALEZ cirrhosis with portal hypertensive gastropathy, CKD3, COPD, chronic diastolic HF, moderate AoS, urinary incontinence w/ suprapubic catheter in place, Mfjgndu-Ulnbt-Nfwxu Disease, and other history as outlined below who was brought to the ED today from [facility] for confusion and weakness since yesterday. History from the patient is essentially unobtainable other than she repeatedly states "I just don't feel well" but is unable to localize further. She denies pain at the present. Her outpatient [facility] chart was reviewed including most recent notes from PCP and urology. Pt was most recently admitted to [facility] 04/20-04/24/24 with acute hypoxic respiratory failure due to pneumonia. She was treated with doxycycline and IV ceftriaxone initially before transition to doxycycline and cefdinir at discharge. She was able to be weaned off O2 before discharge. Since discharge, pt was seen in her PCP office and given a course of azithromycin due to worsening cough. Her daughter called into the PCP office today stating that pt was febrile yesterday with a temp of 102F though afrbile this morning. She was also noted to be more confused from baseline then became very lethargic this morning, which resulted in pt being brought to the ED. Additionally, pt has a history of frequent UTIs and follows with urology for suprapubic catheter, most recently changed on 04/08/24. Allergies Allergy/AdvReac Type Severity Reaction Status Date / Time propoxyphene Allergy Intermediate Rash Verified 05/24/24 16:33 fentanyl AdvReac Intermediate PANIC Verified 05/24/24 16:33 WANTS TO RUN AND AGGRESSIVE methocarbamol AdvReac Intermediate DELERIUM Verified 05/24/24 16:33 zolpidem AdvReac Intermediate confusion Verified 05/09/23 13:18 Home Medications Medication Instructions Recorded Confirmed Type albuterol sulfate 90 mcg/actuation 2 inh inhalation Q6 PRN Shortness 02/07/23 05/24/24 History aerosol inhaler Of Breath Or Wheezing clonazepam 0.5 mg tablet 0.5 mg PO TID 02/07/23 05/24/24 History fluticasone propionate 50 2 spray intranasal DAILY 02/07/23 05/24/24 History mcg/actuation nasal spray,suspension (Flonase Allergy Relief) gabapentin 300 mg capsule 300 mg PO BID 02/07/23 05/24/24 History lamotrigine 100 mg tablet 100 mg PO UD 02/07/23 05/24/24 History (Lamictal) lamotrigine 25 mg tablet (Lamictal) 25 mg PO UD 02/07/23 05/24/24 History lamotrigine 25 mg tablet (Lamictal) 50 mg PO HS 02/07/23 05/24/24 History levothyroxine 88 mcg tablet 88 mcg PO QAM 02/07/23 05/24/24 History montelukast 10 mg tablet 10 mg PO DAILY 02/07/23 05/24/24 History nitroglycerin 0.4 mg sublingual 0.4 mg sublingual DIRECTED PRN 02/07/23 05/24/24 History tablet (Nitrostat) Chest Pain pantoprazole 40 mg tablet,delayed 40 mg PO AMPM 02/07/23 05/24/24 History release potassium chloride 20 mEq 20 meq PO QAM PRN when taking 02/07/23 05/24/24 History tablet,extended additional torsemide release(part/cryst) (Klor-Con M) rifaximin 550 mg tablet (Xifaxan) 550 mg PO BID 02/07/23 05/24/24 History tamsulosin 0.4 mg capsule 0.4 mg PO QAM 02/07/23 05/24/24 History torsemide 20 mg tablet 20 mg PO QAM 02/07/23 05/24/24 History trazodone 50 mg tablet 75 mg PO HS 02/07/23 05/24/24 History venlafaxine 150 mg 150 mg PO UD 02/07/23 05/24/24 History capsule,extended release 24 hr venlafaxine 75 mg tablet,extended 75 mg PO UD 02/07/23 05/24/24 History release 24 hr insulin glargine 100 unit/mL 35 unit subcut BID 05/09/23 05/24/24 History subcutaneous solution (Lantus U-100 Insulin) ascorbic acid (vitamin C) 500 mg 500 mg PO AMHS 05/12/23 05/24/24 History tablet (Vitamin C) aspirin 81 mg tablet,delayed 81 mg PO QAM 05/12/23 05/24/24 History release dicyclomine 10 mg capsule 10 mg PO QID PRN Abdominal Pain 05/12/23 05/24/24 History metformin 500 mg tablet,extended 500 mg PO QDD 05/12/23 05/24/24 History release 24 hr nystatin 100,000 unit/gram topical 1 applic topical TID 05/12/23 05/24/24 History powder (Nyamyc) oxybutynin chloride 10 mg 10 mg PO QAM 05/12/23 05/24/24 History tablet,extended release 24 hr spironolactone 50 mg tablet 50 mg PO AMHS 05/12/23 05/24/24 History semaglutide 2 mg/dose (8 mg/3 mL) 2 mg subcut .WEEKLY 03/02/24 05/24/24 History subcutaneous pen injector (Ozempic) calcium 600 mg (as 1 tab PO DAILY #60 tabs 03/05/24 05/24/24 Rx carbonate)-vitamin D3 10 mcg (400 unit) tablet (Calcium 600 + D(3)) metoprolol succinate 25 mg 25 mg PO BID #60 tabs 03/05/24 05/24/24 Rx tablet,extended release 24 hr ferrous sulfate 325 mg (65 mg 325 mg PO QAM #30 tabs 04/24/24 05/24/24 Rx iron) tablet,delayed release nystatin 100,000 unit/mL oral 1 ml PO QID PRN oral thrush #40 mL 04/24/24 05/24/24 Rx suspension aripiprazole 5 mg tablet 5 mg PO DAILY 05/24/24 05/24/24 History cetirizine 10 mg tablet 10 mg PO DAILY 05/24/24 05/24/24 History ergocalciferol (vitamin D2) 1,250 50,000 unit PO WK 05/24/24 05/24/24 History mcg (50,000 unit) capsule famotidine 40 mg tablet 40 mg PO DAILY 05/24/24 05/24/24 History hydroxyzine HCl 10 mg tablet 10 mg PO TID 05/24/24 05/24/24 History Past Med/Surg History Problem List (Updated 05/24/24 @ 18:32 by Roberta Hoffmann PA-C) Hypokalemia Elevated troponin CEE (acute kidney injury) Complicated UTI (urinary tract infection) Acute alteration in mental status (Acute) Pneumonia (Acute) (HFpEF) heart failure with preserved ejection fraction Aortic stenosis ASCVD (arteriosclerotic cardiovascular disease) Hypomagnesemia (Acute) Hyponatremia (Acute) Non-ST elevation TX (NSTEMI) (Acute) Acute hyponatremia (Acute) Postoperative anemia Sepsis associated hypotension Edema leg Chronic heart failure with preserved ejection fraction CAD (coronary artery disease), [place] coronary artery Abnormal ankle brachial index Diabetic foot ulcer UTI (urinary tract infection) (Acute) Urinary tract infection due to ESBL Klebsiella Cough Cirrhosis of liver not due to alcohol Demand ischemia Chest pain (Acute) Weakness (Acute) H/O urinary retention Ambulatory dysfunction Ambulatory dysfunction (Acute) 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 Lemus LEG WEAKNESS CURRENT PT/OT FOR - BRACES B/L LEGS Gastroparesis (Chronic) Portal hypertensive gastropathy (Chronic) GONZALEZ (nonalcoholic steatohepatitis) (Chronic) Moderate aortic stenosis (Chronic) Chronic diastolic CHF (congestive heart failure) (Chronic) Hypertension (Chronic) CAD (coronary artery disease) (Chronic) History of multiple PCI's to the RCA with subsequent CABG x1 in 2010 x 1 vessel Most recent cardiac testing-negative DSE in December 2017 Follows w/ Dr. Blackwell and Dr. Lucas DM type 2 (diabetes mellitus, type 2) (Chronic) IDDM Hypothyroidism (Chronic) Dyslipidemia (Chronic) Medical History Fracture of femur, distal, left, closed Closed hip fracture CHI (closed head injury) Cardiac arrest pt states she was told she went into cardiac arrest during her hip surgery in 02/2022 at [facility] and was "revived". no other details were given. Palpitations occasionally -- pt states since her metoprolol has been decreased. Cough started about 8 months ago s/p covid-19 virus -- currently treating with a ugmentin PO bid and prednisone. prednisone to end 05/27/22 and abx to finish on 06/01/22 Hx of fall pt. fell in the bathroom at home, pt. wasn't aware of what happen but was told this by her family 02/05/2022 History of anesthesia reaction REMOTE HX, SIDE EFFECTS : ANXIETY AND SEVERE N/V History of COVID-19 may or june 2021, has cough since. SOB (shortness of breath) SINCE COVID / 6-8 MON AGO, SOB, COUGH...NO DX...HAS VISIT WITH PULM UPCOMING TO EVALUATE Urinary incontinence UTI (urinary tract infection) FREQUENT/PREVENTATIVE ABX'S CURRENTLY MOST RECENT UTI JANUARY 04 - ABX COMPLETE - ON CURRENT PROPHYLACTIC TX Irregular heart beat follows Dr. 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 Lucas History of cardiac cath multiple - most recent - 2 years ago @ [place] - FOR CP Family History Father Coronary heart disease Brother Coronary heart disease Father No problems noted. Mother No problems noted. Other No family history of adverse response to anesthesia Social History Smoking Status: Never smoker Tobacco Type: Cigarettes Second Hand Exposure: No; Do You Dip or Chew Tobacco: No; Tobacco Cessation Education Requested by Patient: No Hx Alcohol Use: No Hx Substance Use: No Preferred Language: Argentine Communication Ability: Disoriente Visual Impairment: Partially Limited Hearing Ability: Hard of Hearing Dietetics Teacher Required: No Beliefs That Will Affect Care: None marital status: / Current Living Situation: Snf Current Living Situation Comment: [facility] How many Children do You have: 3 Other Information That Helps Us Care for You: No Feels Safe at Home: Yes Diet: low carbohydrate and low salt caffeine: No Assistive Devices: Denture - Upper Review of Systems Review of Systems: Limited due to confusion/AMS - see HPI Physical Exam Physical Exam: General: awake, alert, NAD HEENT: no scleral icterus, moist oral mucosa Neck: supple, trachea midline Heart: RRR Lungs: mildly diminished BS but clear Abdomen: soft, NT, +BS Skin: warm, dry, no jaundice Neurologic: oriented to person but not place or time, moving all extremities, unable to answer history questions Results & Data Results & Data Vital Signs (Past 12 Hours) Vital Signs Temp Pulse Pulse Resp BP BP Pulse Ox 05/24/24 14:00 77 13 119/69 91 05/24/24 12:32 95 H 24 140/82 92 05/24/24 12:17 93 H 05/24/24 11:17 91 H 27 H 95 05/24/24 10:50 37.1 C 94 H 21 108/84 93 05/24/24 10:50 93 05/24/24 10:50 37.1 C 93 H 25 H 108/84 95 O2 Del Method O2 Flow Rate 05/24/24 14:00 05/24/24 12:32 Room Air 05/24/24 12:17 05/24/24 11:17 Room Air 05/24/24 10:50 Room Air 05/24/24 10:50 Room Air 0 05/24/24 10:50 Room Air Laboratory Results Lab Results 05/24/24 05/24/24 05/24/24 Range/Units 11:41 11:42 11:44 WBC 20.72 H (4.8-10.8) K/ul RBC 5.85 H (4.20-5.40) M/uL Hgb 16.2 H (12.0-16.0) g/dl Hct 46.4 (37.0-47.0) % MCV 79.3 L (80.0-100.0) fL MCH 27.7 (25.0-34.0) pg MCHC 34.9 (32.0-36.0) g/dL RDW Std Deviation 45.1 (36.4-46.3) fL RDW Coeff of Guillermo 17.2 H (11.5-14.5) % Plt Count 150 (130-400) K/uL MPV 9.9 (9.4-12.4) fL Immature Gran % (Auto) 3.0 % Neut % (Auto) 74.6 % Lymph % (Auto) 14.3 % [place] % (Auto) 7.2 % Eos % (Auto) 0.5 % Baso % (Auto) 0.4 % Neut # (Auto) 15.45 H (1.40-6.50) K/uL Lymph # (Auto) 2.96 (1.20-3.40) K/uL [place] # (Auto) 1.49 H (0.11-0.59) K/uL Eos # (Auto) 0.10 (0.00-0.50) K/uL Baso # (Auto) 0.09 (0.00-0.20) K/uL Immature Gran # (Auto) 0.63 H (0.01-0.20) K/uL Sodium 129 L (136-145) mmol/L Potassium 2.9 L (3.5-5.1) mmol/L Chloride 86 L (98-107) mmol/L Carbon Dioxide 30 (21-32) mmol/L Anion Gap 13 H (3-11) BUN 28 H (6-23) mg/dl Creatinine 1.68 H (0.6-1.2) mg/dl Est Cr Clr Drug Dosing Not Reportable eGFR 31.72 BUN/Creatinine Ratio 16.7 (10-20) Glucose 228 H (70-99(Fasting)) mg/dl POC Glucose 234 H (70-99) mg/dl Calcium 10.2 (8.6-10.3) mg/dl Total Bilirubin 1.7 H (0.2-1.0) mg/dl AST 24 (13-39) U/L ALT 37 (7-52) U/L Alkaline Phosphatase 177 H (34-104) U/L Troponin I High Sens 28.2 H (0-14) pg/ml Total Protein 6.8 (6.0-8.3) gm/dl Albumin 3.8 (3.4-5.0) gm/dl Globulin 3.0 (2.5-4.0) gm/dl Albumin/Globulin Ratio 1.3 (0.9-2) Lipase 16 (11-82) U/L Procalcitonin (0-0.5) ng/ml Urine Color Yellow Urine Appearance Cloudy A (Clear) Urine pH 6.0 (4.5-7.5) Ur Specific Mouthcard 1.009 (1.000-1.030) Urine Protein Negative (Negative) Urine Glucose (UA) Negative (Negative) Urine Ketones Negative (Negative) Urine Blood 2+ H (Negative) Urine Nitrite Negative (Negative) Urine Bilirubin Negative (Negative) Urine Urobilinogen Negative (Negative) Ur Leukocyte Esterase 3+ H (Negative) Urine WBC (Auto) >50 H (0-5) /hpf Urine RBC (Auto) 3-5 H (0-2) /hpf U Hyaline Cast (Auto) 11-20 H (0-2) /lpf U Epithel Cells (Auto) 6-10 H (0-2) /hpf Urine Bacteria (Auto) 4+ H (None Seen) 05/24/24 05/24/24 Range/Units 11:52 14:10 WBC (4.8-10.8) K/ul RBC (4.20-5.40) M/uL Hgb (12.0-16.0) g/dl Hct (37.0-47.0) % MCV (80.0-100.0) fL MCH (25.0-34.0) pg MCHC (32.0-36.0) g/dL RDW Std Deviation (36.4-46.3) fL RDW Coeff of Guillermo (11.5-14.5) % Plt Count (130-400) K/uL MPV (9.4-12.4) fL Immature Gran % (Auto) % Neut % (Auto) % Lymph % (Auto) % [place] % (Auto) % Eos % (Auto) % Baso % (Auto) % Neut # (Auto) (1.40-6.50) K/uL Lymph # (Auto) (1.20-3.40) K/uL [place] # (Auto) (0.11-0.59) K/uL Eos # (Auto) (0.00-0.50) K/uL Baso # (Auto) (0.00-0.20) K/uL Immature Gran # (Auto) (0.01-0.20) K/uL Sodium (136-145) mmol/L Potassium (3.5-5.1) mmol/L Chloride (98-107) mmol/L Carbon Dioxide (21-32) mmol/L Anion Gap (3-11) BUN (6-23) mg/dl Creatinine (0.6-1.2) mg/dl Est Cr Clr Drug Dosing eGFR BUN/Creatinine Ratio (10-20) Glucose (70-99(Fasting)) mg/dl POC Glucose (70-99) mg/dl Calcium (8.6-10.3) mg/dl Total Bilirubin (0.2-1.0) mg/dl AST (13-39) U/L ALT (7-52) U/L Alkaline Phosphatase (34-104) U/L Troponin I High Sens 29.0 H (0-14) pg/ml Total Protein (6.0-8.3) gm/dl Albumin (3.4-5.0) gm/dl Globulin (2.5-4.0) gm/dl Albumin/Globulin Ratio (0.9-2) Lipase (11-82) U/L Procalcitonin 0.14 (0-0.5) ng/ml Urine Color Urine Appearance (Clear) Urine pH (4.5-7.5) Ur Specific Mouthcard (1.000-1.030) Urine Protein (Negative) Urine Glucose (UA) (Negative) Urine Ketones (Negative) Urine Blood (Negative) Urine Nitrite (Negative) Urine Bilirubin (Negative) Urine Urobilinogen (Negative) Ur Leukocyte Esterase (Negative) Urine WBC (Auto) (0-5) /hpf Urine RBC (Auto) (0-2) /hpf U Hyaline Cast (Auto) (0-2) /lpf U Epithel Cells (Auto) (0-2) /hpf Urine Bacteria (Auto) (None Seen) Diagnostic Findings Chest X-Ray 05/24/24 11:07 XR chest 1V portable CLINICAL HISTORY: Chest pain, nonspecific COMPARISON STUDY: Chest radiograph and chest CT April 20, 2024. FINDINGS: Elevation of the right hemidiaphragm is unchanged. Low lung volumes are again noted. There are median sternotomy wires. Cardiomediastinal silhouette is stable. There is no lobar consolidation. There is no evidence for pulmonary edema. There is no pneumothorax or pleural effusion. IMPRESSION: 1. No acute cardiopulmonary findings. 2. No change in low lung volumes with elevation of the right hemidiaphragm. ACT 112: Negative or not required by law. Electronically signed by: Mu Bonds M.D. 05/24/2024 11:[address] 05/24/24 11:16 CT head/brain wo con CLINICAL HISTORY: 73 years-old Female with russell. Acute headache TECHNIQUE: Multiple axial CT images of the head were obtained without contrast. A dose lowering technique was utilized adhering to the principles of ALARA. CT DOSE: 703.85 mGy.cm COMPARISON: 04/20/2024 FINDINGS: No acute intracranial hemorrhage, midline shift, intracranial mass, hydrocephalus, territorial ischemia or abnormal extra-axial collection. Involutional changes with chronic microvascular ischemic disease and cerebral vascular calcifications. Unchanged appearance of the chronic right basal ganglia lacunar infarct. The calvarium is intact. The paranasal sinuses, mastoid air cells, and middle ear cavities are clear. IMPRESSION: No acute intracranial abnormality. ACT 112: Negative or not required by law. The above report was generated using voice recognition software. It may contain grammatical, syntax or spelling errors. Electronically signed by: Tommie Loredo M.D. 05/24/2024 11:47 AM Medications Administered Discontinued Medications Sodium Chloride (Nss) 1,000 mls @ 999 mls/hr IV .Q1H1M ONE Stop: 05/24/24 12:16 Last Infusion: 05/24/24 12:25 Dose: Infused Documented By: Admin: 05/24/24 11:24 Dose: 999 mls/hr Documented By: ROBINSON Meropenem 500 mg/ Syringe 10 mls @ 2 mls/min IV Q8H ANGELLA; Protocol Stop: 05/26/24 12:44 Last Admin: 05/24/24 14:16 Dose: 2 mls/min Documented By: ROBINSON Potassium Chloride (K Micky / Wtr) 10 meq in 100 mls @ 100 mls/hr IV ONE ONE; Protocol Stop: 05/24/24 13:44 Last Admin: 05/24/24 13:32 Dose: 100 mls/hr Documented By: ROBINSON Supervising Physician Co-Signing Physician Notes Chart and data reviewed. Pt seen in the ED at bedside with nursing. Patient cannot give a reliable history. She is confused. Patient started on IV meropenem for complicated UTI and history of ESBL. I agree with the ZITA's assessment and plan of care. A total of 20 minutes spent in the care and care collaboration for this patient. (5) (HFpEF) heart failure with preserved ejection fraction Heart failure chronicity: chronic Qualified Code(s): I50.32 - Chronic diastolic (congestive) heart failure (6) CAD (coronary artery disease), [place] coronary artery Associated angina: without angina [place] vs. transplanted heart: [place] heart Qualified Code(s): I25.10 - Atherosclerotic heart disease of [place] coronary artery without angina pectoris (7) DM type 2 (diabetes mellitus, type 2) Diabetes mellitus complication detail: with unspecified neuropathy Diabetes mellitus complication status: with neurologic complications Diabetes mellitus oysterman insulin use: with oysterman use Qualified Code(s): E11.40 - Type 2 diabetes mellitus with diabetic neuropathy, unspecified; Z79.4 - USP (current) use of insulin (8) Hypertension Hypertension type: unspecified Qualified Code(s): I10 - Essential (primary) hypertension (9) Bipolar disorder Active/Remission status: remission status unspecified Qualified Code(s): F31.9 - Bipolar disorder, unspecified
--- NOTE | 2024-05-24 16:24 | Electrocardiogram Report ---
Test Reason : Blood Pressure : */* mmHG Vent. Rate : 92 BPM Atrial Rate : 92 BPM P-R Int : 160 ms QRS Dur : 114 ms QT Int : 378 ms P-R-T Axes : -7 -69 110 degrees QTcB Int : 467 ms Normal sinus rhythm Left axis deviation Left ventricular hypertrophy with repolarization abnormality ( R in aVL , Zack product ) Inferior infarct , age undetermined Anterolateral infarct Abnormal ECG When compared with ECG of 21-Apr-2024 15:11, Inferior infarct is now Present Anterolateral infarct is now Present T wave inversion now evident in Lateral leads Confirmed by Vamshi Landaverde ([id number]) on 05/24/2024 4:23:44 PM Referred By: Confirmed By: Vamshi Landaverde
--- OUTSIDE RECORDS SUMMARY | 2024-05-24 16:54 | External Medical Summary | Summary of Care ---
Author Name Unknown Organization [facility] Address [address] [place] [address] Phone [phone] Care Team Providers Care Communications Technologist Name Role Phone Brian Domínguez MD Primary Care Provider [phone]- [phone] Encounter Details Date Type Department Care Team (Late st Contact Info) Description 02/19/2024 Telephone [facility] [address] [place] [address] Brian Domínguez MD [address] [place] [address] Allergies Active Allergy Reactions Criticality Noted Date Comments Propoxyphene Hcl Rash Low 10/29/2010 Fentanyl Diarrhea Low 04/26/2010 anxiety Methocarbamol Medium 10/05/2020 Other reaction(s): Delirium Methocarbamol Low 04/15/2007 Zolpidem Low 10/05/2020 Other reaction(s): Confusion documented as of this encounter (statuses as of 05/20/2024) Medications venlafaxine XR (EFFEXOR XR) 150 MG [id number]:De pression Take 1 Cap by mouth daily. [...] 11/19/19 18 Active Blood Glucose Monitoring Suppl ([employer] VERIO) w/Device KIT Use as directed. Use as directed. 1 Kit 11/01/19 19 Active Spacer/Aero-Holdin g Chambers WISAM Use with inhaler. Wheezing/bronchit is. 1 Device 04/08/20 19 Active Lancet Devices (Ostial SolutionsUCH DELICA LANCING DEV) MISC Use four times [...] 25 Tablet 5 10/16/19 24 Active Nystatin 527277 UNIT/GM External Powder (Nystop)Indication s:Candidal intertrigo Apply topically to affected area 3 times a day. Apply to right breast until rash resolved. 30 g 10/16/19 24 Active Vitamin D (Ergocalciferol) 1.25 MG (37928 UT) Oral Capsule (Drisdol)Indicatio ns:Vitamin D deficiency TAKE 1 CAPSULE BY MOUTH ONCE WEEKLY 12 Capsule 3 11/10/19 24 Active Insulin Glargine Solostar 100 UNIT/ML Subcutaneous Solution Pen-injector (Lantus SoloStar)Indicatio ns:Type 2 diabetes mellitus with stage 3a chronic kidney disease, with long-term current use of insulin (HCC) Inject 35 units subcutaneously twice per day 30 mL 11/18/19 24 Active Additional Information Patient taking differently: Inject 30 units subcutaneously twice per day, Reported on 04/29/2024 ARIPiprazole 5 MG Oral Tablet (Abilify) Take [...] morning and 1 Tablet before bedtime. Active Montelukast Sodium 10 MG Oral Tablet (Singulair)Indicat ions:Nasal sinus congestion,PND (post-nasal drip) TAKE 1 TABLET BY MOUTH ONCE DAILY 90 Tablet 12/12/19 24 Active Potassium Chloride Mag ER 20 MEQ Oral Tablet Extended Release TAKE ONE TABLET BY MOUTH EVERY MORNING WHEN TAKING ADDITIONAL TORSEMIDE 90 Tablet 12/19/19 24 Active metFORMIN HCl ER 500 [...] evening 180 Tablet 1 02/09/20 24 Active documented as of this encounter (statuses as of 05/20/2024) Active Problems Problem Noted Date Diagnosed Date Immunodeficiency 05/13/2024 Old PA (myocardial infarction) 05/13/2024 Recurrent UTI 03/23/2024 Pelvic pain 03/23/2024 Suprapubic catheter 02/09/2024 Chronic kidney disease, stage 3a 11/17/2023 Overview: Per CKD protocol COPD, group B, by GOLD 2017 classification 11/16 Overview: Per COPD GOLD Classification Assessment & Plan (02/09/2024 1:41 PM EDT): "RED FLAG" COPD symptoms: Increased shortness of [...] encounter 01/06/2023 Coronary artery disease invo lving iliamna coronary artery of iliamna heart without angina pectoris 11/15/2021 Assessment & Plan (03/12/2022 4:42 PM EDT): Stable. No angina -continue toprol, ASA and statin Seasonal allergies 11/15/2021 Type 2 diabetes mellitus wit h diabetic neuropathy, with long-term current use of insulin 08/27/2021 Assessment & Plan (03/12/2022 4:49 PM EDT): BS stable Last HgbA1C 7 12/26 -continue trmeghnaity, lantus 30 u BID Assessment & Plan (12/31/2021 6:13 PM EDT): Continues gabapentin 300mg BID hgba1c not at goal followed by MTM Type 2 diabetes mellitus wit h stage 3a chronic kidney disease, with long-term current use of insulin 08/27/2021 Assessment & Plan (03/29/2024 6:24 PM EDT): "RED FLAG" Diabetic symptoms: Excessive Thirst, Confusion, and Vision Changes Goal HgbA1c <8 Diabetic Complications Vascular (examples: PVD, PAD, CAD, CVA) Renal (example: CKD, Proteinuria, Dialysis) Medication Regimen Metformin Basal/Long Acting Insulin GLP-1 Agonist (ex: Victoza, Trulicity, Ozempic) DM Secondary Prevention Moderate-High Intensity Statin Additional Comments A1c at goal, continue same Assessment & Plan (02/09/2024 1:46 PM EDT): "RED FLAG" Diabetic symptoms: Excessive Thirst, Confusion, [...] - [facility] 6.3 (H) 02/18/2019 02:55 PM Assessment & Plan (12/31/2021 6:10 PM EDT): Followed by MTM Basaglar 60 units daily Trulicity 4.5mg weekly Avoid nephrotoxic drugs Urge incontinence 03/27/2021 longterm (current) use of insulin 09/29/2019 Diabetic gastroparesis 04/28/2019 Fatty liver 05/06/2018 Chronic liver disease and cirrhosis 05/06/2018 Assessment & Plan (12/31/2021 6:17 PM EDT): Followed by GI Reports compliance with lactulose. Stable today --spironolactone 50mg daily Moderate aortic stenosis 05/06/2018 Hypertensive heart and kidne y disease with chronic diastolic congestive heart failure and stage 3a chronic kidney disease 05/06/2018 Assessment & Plan (03/29/2024 6:23 PM EDT): "RED FLAG" HF Symptoms: Leg Swelling Increased [...] 100 mg BMP Additional Comments: Euvolemic today Assessment & Plan (02/09/2024 1:44 PM EDT): "RED FLAG" HF Symptoms: Leg Swelling Increased [...] 100 mg BMP Additional Comments: Euvolemic today Assessment & Plan (03/12/2022 4:41 PM EDT): Euvolemic, BP stable EF 55% 09/25 GFR 69 02/25 -Continue Torsemide 20 mg BID, Spironolactone 25 mg BID, Tropol XL 50 mg daily Assessment & Plan (12/31/2021 6:17 PM EDT): Euvolemic today. See phone note from today, need to ensure dgt is giving toprol daily and not BID BP at goal --torsemide 20mg daily --spironolactone 50mg daily --metoprolol 50mg daily Anxiety 08/05/2017 MEDICATION USE AGREEMENT 01/17/2015 Overview (01/17/2015): Signed 01/04/2015 HTN, goal below 130/80 09/06/2014 Bipolar I disorder, most recent episode depresse d, moderate 06/09/2012 Assessment & Plan (02/09/2024 1:42 PM EDT): Follows with Dr CHARLES, psychiatry Continue abilify, effexor, trazodone, and lamictal Assessment & Plan (03/12/2022 4:45 PM EDT): Slightly depressed today, but overall stable -continue effexor, lamictal, trazadone, and abilify Assessment & Plan (12/31/2021 6:18 PM EDT): Stable today --venlafaxine 75mg daily --trazodone 50mg qhs --abilify 2mg daily -lamictal Hypothyroidism 02/15/2011 Dyslipidemia, goal LDL below 70 02/12/2011 S/P angioplasty with stent 02/01/2010 Gastroesophageal reflux disease without esophagi tis 05/04/2004 Overview (09/28/2019): Updated due to amp error Aqjhuqg-Zgmhu-Sbwwx disease 12/31/2002 Assessment & Plan (12/31/2021 6:19 PM EDT): Frequent falls Home PT and OT continue GONZALEZ (nonalcoholic steatohepatitis) documented as of this encounter (statuses as of 05/20/2024) Resolved Problems Problem Noted Date Diagnosed Date Resolved Date Chronic obstructive pulmonary disease 10/23/2023 11/19/2023 Overview: Per COPD GOLD Classification Food insecurity 06/16/2023 02/19/2024 Overview: Per [facility] Protocol Transient alteration of awareness 05/12/2023 05/12/2023 Open wound of left heel 03/12/202208/2022 Assessment & Plan (03/12/2022 4:48 PM EDT): Pressure ulcer -off loading. Use waffle boots. Keep clean and dry -wound care referral Other chronic pain 12/31/2021 Assessment & Plan (12/31/2021 6:20 PM EDT): Chronic pain medication managed by pcp --gabapentin 300mg BID --morphine 15mg q 12hrs --Oxy IR 1 tab every 8 hours prn Recurrent UTI 10/07/2021 02/03/2024 Assessment & Plan (12/31/2021 6:14 PM EDT): Followed by urology Pt is supposed to be on methenamine--will need to clarify with dgt that she is giving this. 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 Failed multiple abx previously but did well with fosfomycin. -Will collect UA today -Will start empirically on fosfomycin as she has classic symptoms and h/o recurrent UTI. Counseled not to start abx until after collecting urine sample. Acute cystitis without hematuria 03/27/2021 07/08/2022 Pelvic pain 03/27/2021 02/03/2024 Type 2 diabetes mellitus wit h diabetic neuropathy 09/07/2018 11/07/2023 Overview (11/07/2023): duplicate Mild protein-calorie malnutrition 05/07/2018 04/29/2019 Diabetes mellitus with neuropathy 05/06/2018 09/07/2018 Other cirrhosis of liver 05/06/2018 Atherosclerotic heart diseas e of iliamna coronary artery with other forms of angina pectoris 05/06/2018 08/27/2021 Thrombocytopenia 05/06/2018 02/09/2021 Portal hypertension 05/06/2018 08/28/19 Hepatic encephalopathy 05/06/201808/27 Portal hypertensive gastropathy 05/06/2018 03/29/2024 Assessment & Plan (12/31/2021 6:14 PM EDT): Followed by GI Endoscopy planned 01/16/22 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11/04 Uncontrolled type 1 diabetes mellitus with complication, with long-term current use of insulin 09/07/2015 05/07/2018 Overview (11/06/2015): ICD-10 update of inactive term Bilateral low back pain without sciatica 06/23/2015 08/28/2018 Abnormal results of liver function studies 05/27/2014 07/19/2014 Unstable angina 05/26/2014 08/05/2017 ASCVD (arteriosclerotic card iovascular disease) 05/26/2014 05/26/2014 Recurrent falls 05/26/2014 08/28/2018 Nausea 05/26/2014 07/19/2014 Overview (04/29/2017): ICD-10 update of inactive term Cutaneous candidiasis 01/21/20142018 Intertrigo 01/21/2014 07/19/2014 Elevated CK 06/09/2012 07/19/2014 Chest pain 06/09/2012 07/19/2014 Falls frequently 06/09/2012 07/19/2014 Edema 06/09/2012 08/28/2018 UTI (urinary tract infection) 05/26/2012 07/19/2014 Dysuria 05/26/2012 07/19/2014 Urinary frequency 05/26/2012 07/19/2014 Urinary incontinence 05/26/2012 023 Overview (04/07/2017): ICD-10 update of inactive term MEDICATION USE AGREEMENT 05/26/2012 Overview (05/26/2012): 05/26/12 Lumbago 05/26/2012 07/19/2014 HTN, goal below 140/80 02/24/201209/06 Overview: Per HTN Protocol #27. Severe obesity with body mas s index (BMI) of 35.0 to 39.9 with serious comorbidity 02/04/2012 Overview (04/22/2018): bmi= 38.85 02/04/12 ICD-10 update of inactive diagnosis Delirium 02/04/2012 07/19/2014 Sepsis 02/04/2012 07/19/2014 Cellulitis of left foot 02/04/201206/07 Sundowning 02/04/2012 07/19/2014 S/P CABG x 1 07/17/2011 08/19/2012 ASCVD (arteriosclerotic card iovascular disease) 07/17/2011 09/07/2018 Elevated liver enzymes 06/25/201106/27 Unstable angina 02/12/2011 01/21/2014 Recurrent In-stent stenosis 10/31/2010 08/28/2018 Acute coronary syndrome 10/30/201001/04 [employer] Research Other*[id number] 02/02/2010 04/18/2014 Overview (02/02/2010): [facility], Dr Joel CASAS Obesity, morbid (more than 1 00 lbs over ideal weight or BMI > 40) 10/03/2009 06/27/2015 Overview (10/03/2009): Per Obesity Taxonomy, referred to Dr. Portillo 04/10. HTN, goal below 130/80 08/02/200902/26 Overview (08/02/2009): Per HTN Taxonomy. Type 2 diabetes mellitus wit h hemoglobin A1c goal of less than 7.0% 05/04/2009 09/07/2015 Overview (10/31/2015): Per Diabetes Taxonomy. diet controlled, 03/07/05 hgba1c 5.4 ICD-10 update of inactive term Chronic coronary artery disease 04/11/2009 04/11/2009 Overview (04/11/2009): S/P Bare metal stent of proximal LAD Chronic coronary artery disease 04/11/2009 08/28/2018 Overview (04/11/2009): S/P bare metal stent of RCA Other nonspecific abnormal c ardiovascular system function study 04/05/2009 01/21/2014 Chest pain 04/05/2009 02/12/2011 Venous thrombosis 07/08/2006 08/04/2008 Overview (08/04/2008): Resolved per Duplicate Protocol #2. 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/2014 termination clerk current use of ant icoagulant therapy 06/17/2006 01/21/2014 Overview (04/07/2017): ICD-10 update of inactive term Anticoagulation management encounter 06/17/2006 01/21/2014 BACKACHE NOS 02/06/2005 01/21/2014 ADVANCE DIRECTIVE INFORMATION 02/04/2005 08/05/2017 Overview (02/04/2005): No, Advance Directive brochure given to patient at prior appointment. CHRONIC UTI (Klebsiella) 02/04/2005 Overview (05/06/2005): referred to Urology. ACUTE SINUSITIS NOS 11/05/2004 05/06/20 ACUTE URI NOS 11/05/2004 05/06/2005 ACUTE PHARYNGITIS 11/05/2004 05/06/2005 Volume depletion 11/05/2004 05/06/2005 Fever and other physiologic disturbances of temperature regulation 11/05/2004 05/06/2005 Overview (10/10/2015): ICD-10 update of inactive term BIPOLAR, Depressed - INPT ADMISSION NOTE 08/14/2004 05/26/2014 Overview (08/14/2004): [place] from 08/06/04 - 08/17/04 (dx's with bipolar d/o, w/ depression) dc meds: lexapro 20mg qhs, depakote 1000mg qhs, clonazepam 0.5mg bid. started remeron (08/11) 15mg qhs, d/c'd ambien, valium prn. MIGRAINE, NOS 05/25/2004 01/21/2014 Dysuria 05/25/2004 01/21/2014 Morbid obesity, BMI not known 05/25/2004 10/03/2009 Overview (10/03/2009): Per Obesity Taxonomy, referred to Dr. Portillo 04/10. ELECTROLYT-FLUID DIS NEC 05/25/2004 PREMENSTRUAL TENSION 05/04/2004 006 Type 2 diabetes mellitus wit h hemoglobin A1c goal of less than 7.0% 05/04/2004 05/04/2009 Overview (10/31/2015): Per Diabetes Taxonomy. diet controlled, 03/07/05 hgba1c 5.4 ICD-10 update of inactive term HTN, goal below 140/90 05/04/200408/02 Overview (08/02/2009): Per HTN Taxonomy. Carpal tunnel syndrome 12/31/200211/05 documented as of this encounter (statuses as of 05/20/2024) Immunizations Name Administration Dates Next Due COVID-19 [...] Date Recorded PHQ Adult Total Score 2 01/20/2024 Hunger Vital Sign Answer Date Recorded Within [...] ages 0-17 years) Not on file 01/20/2024 Comments No Sex and Gender Information Value Date Recorded Sex Assigned at Female 11/04/2018 4:56 PM EDT Legal Sex Female 5:05 AM EST Gender Identity Female 11/04/2018 4:56 PM EDT Sexual Orientation Straight 11/04/2018 4: 56 PM EDT Occupation Industry Job Start Date Job End Date DISABLED Not on file Not on file Not on file documented as of this encounter Miscellaneous Notes * Telephone Encounter - Andie Vu MED ASSIST - 02/19/2024 12:54 PM EDT Received orders from [facility] home health care that need signed and faxed. Placed on provider's desk for signature. documented in this encounter Plan of Treatment Upcoming Encounters Date Type Department Care Team (Late st Contact Info) Description 05/24/2024 3:40 PM EST Office Visit Nephrology, [facility] [address] [place] [address] Maurilio Smith MD [address] [place] [address] 05/27/2024 10:30 AM EST Scheduled Telephone [facility], [facility] [address] [place] [address] Jesusita Saenz, RDN [address] [place] [id number] 06/08/2024 6:00 PM EST Office Visit [facility] [address] [place] [address] Brian Domínguez MD [address] [place] [address] 06/23/2024 11:45 AM EST Office Visit Urology, [facility] [address] [facility] [place] [address] Alfredo Panda MD [address] [place] [address] 06/24/2024 2:30 PM EST Home Visit [facility], [facility] [address] [facility] [place] [address] Al Doyle, KAT [address] [facility] [place] [address] Scheduled Procedures Name Priority Associated Diagnoses Date/Ti [...] Additional history exists CKD PHOS USE SMARTSET 50543 10/24/202310/05, 02/18/2022, 02/17/2022, Additional history exists COVID-19 Vaccine ( season) 2024 06/10/2021, 08/29/2020, 08/01/2020 Colonoscopy 05/20/2024 05/20/2014 Colorectal Cancer Screening 05/20/2024 TSH 06/17/2024 06/17/2023, 05/08, 02/13/2023, Additional history exists HbA1c 08/21/2024 02/19/2024, 06/0 12/2023, 10/17/2023, Additional history exists Diabetic Foot Exam 10/15/2024 10/16/2023, 1 07/22/2019, 02/22/2019, Additional history exists GFR 10/28/2024 04/29/2024, 02/04, 10/21/2023, Additional history exists Albumin/Creatinine Ratio 11/03/2024 024, 10/23/2022, 07/17/2022, Additional history exists O2 ASSESSMENT COMPLETED IN PAST YEAR FOR COPD 04/08/2025 04/08/2024 CKD HGB USE SMARTSET 52065 04/29/202504/29, 04/29/2024, 02/19/2024, Additional history exists DTap/Tdap Vaccines (2 - [...] this encounter Medical Devices Implanted Type Area International Accountant Device Identifier Shelf Expiration Date Model / Serial / Lot Jenna Rojas 6 M654g - [id number] [place] on [place]2011 [place] [facility] [place] Chest DO NOT USE 01/15/2015 M654G / / [id number] Band Magdy [id number] - [id number] Implanted:Qty: 1 on 02/15/2011 [place] [facility] [place] [place]: Chest [employer] 225-241 / / [id number] [employer] 6 M654g - [id number] Implanted:Qty: 1 on 02/15/2011 [place] [facility] [place] Chest DO NOT USE 07/21/2015 M654G / / [id number] documented as of this encounter Advance Directives Documents on File Type Date Recorded Patient Supervisor Cytology Expl anation POLST 05/06/2018 POLST * Full [...] Child Health Care Agent Care Teams Communications Technologist Relationship Specialty Start Date End Date Brian Domínguez MD [address] [place] [id number] PCP - General Family Medicine 07/16/17 documented as of this encounter
--- OUTSIDE RECORDS SUMMARY | 2024-05-24 16:54 | External Medical Summary | Summary of Care ---
Author Name Unknown Organization [facility] Address [address] [place] [address] Phone [phone] Care Team Providers Care Make Up Arranger Name Role Phone Carmen Sifuentes MD Primary Care Provider [phone] Reason for Visit * Reason Comments eRx-Medication Refill Encounter Details Date Type Department Care Team (Late st Contact Info) Description 05/17/2024 Refill [facility] [address] [place] [address] Carmen Sifuentes MD [address] [place] [address] Abdominal pain Allergies Active Allergy Reactions Criticality Noted Date Comments Propoxyphene Hcl Rash Low 10/29/2010 Fentanyl Diarrhea Low 04/26/2010 anxiety Methocarbamol Medium 10/05/2020 Other reaction(s): Delirium Methocarbamol Low 04/15/2007 Zolpidem Low 10/05/2020 Other reaction(s): Confusion documented as of this encounter (statuses as of 05/19/2024) Medications venlafaxine XR (EFFEXOR XR) 150 MG ZC23Barkzwtemoy:D epression Take 1 Cap by mouth daily. With food. 30 Cap 5 017 Active Additional Information Patient taking differently: 225 mgOral Daily(AM),Taking a total of 225 mg, Indications: Takes 225 mg total every morning with food (150 mg tab + 75 mg tab), Reported on 03/03/2023 Blood Glucose Monitoring Suppl (D-CARE GLUCOMETER) w/Device KITIndications:Un controlled type 2 diabetes mellitus without complication, without long-term current use of insulin Use as directed. Use as directed once daily 1 Kit 018 Active Blood Glucose Monitoring Suppl (ReflexPhotonicsUCH VERIO) w/Device KIT Use as directed. Use as directed. 1 Kit 019 Active Spacer/Aero-Holdi ng Chambers WISAM Use with inhaler. Wheezing/bronchi tis. 1 Device Active Lancet Devices (GalavantierTOUCH DELICA LANCING DEV) MISC Use four times a day Dx: E11.4 1 Each Active venlafaxine XR (EFFEXOR XR) 75 MG CP24 Take 1 Capsule by mouth in the morning. With 150mg tablet. Active traZODone (DESYREL) 50 MG Tablet Take 2 Tablets by mouth at bedtime. 30 Tab 5 Active Aspirin EC 81 MG Oral Tablet Delayed Release Take 1 Tablet by mouth in the morning. Active Fluticasone Propionate 50 MCG/ACT Nasal SuspensionIndicat ions:PND (post-nasal drip) Administer 2 Sprays into each nostril daily. 9.9 mL 1 021 Active Lactulose 10 GM/15ML Oral Solution (Constulose)Indic ations:Chronic liver disease and cirrhosis (HCC) TAKE 45 ML BY MOUTH TWICE DAILY DIRECTED 2700 mL 5 022 Active Additional Information Patient taking differently: TID(AM/NOON/HS), Reported on 03/03/2023 lamoTRIgine 100 MG Oral Tablet (LaMICtal) Take 1 Tablet by mouth every morning. 30 Tablet 5 022 Active AIRS Disposable Nebulizer Kit Use as directed 1 Kit 023 Active lamoTRIgine 25 MG Oral Tablet (LaMICtal) 1 Tablet. Taking 2 at bedtime and 1 in morning 023 Active Albuterol Sulfate HFA 108 (90 Base) MCG/ACT Inhalation Aerosol SolutionIndicatio ns:Cough Use two puffs four times a day, as directed 18 g 3 023 Active Budesonide-Formot laura Fumarate 160-4.5 MCG/ACT Inhalation Aerosol (Symbicort) Inhale 2 Puffs by mouth in the morning and 2 Puffs before bedtime. 10.2 g 12 023 Active Atorvastatin Calcium 40 MG Oral Tablet (Lipitor)Indicati ons:Dyslipidemia, goal LDL below 70 TAKE ONE TABLET BY MOUTH EVERY MORNING 90 Tablet 2 023 Active Ipratropium-Albut laura 0.5-2.5 (3) MG/3ML Inhalation Solution (Duoneb) Inhale 3 mL via nebulizer in the morning and 3 mL at noon and 3 mL in the evening and 3 mL before bedtime. 360 mL 3 023 Active MEDICAL INSTRUCTIONS Please arrange for as needed Home fci visit for obtaining straight cath urine sample for 06/25/23. 1 Each 1 023 Active Famotidine 40 MG Oral Tablet (Pepcid)Indicatio ns:Gastroesophage al reflux disease with esophagitis without hemorrhage TAKE 1 TABLET BY MOUTH EVERY MORNING 90 Tablet 3 024 Active OneTouch Delica Lancets 33G USE UP TO FOUR TIMES A DAY Dx:E11.4 360 Each 5 024 Active Vitamin C 500 MG Oral Tablet (Ascorbic Acid)Indications: Recurrent UTI TAKE 1 TABLET BY MOUTH TWICE DAILY every morning and before bedtime 180 Tablet 3 024 Active PEG 3350 17 GM/SCOOP Oral Powder DISSOLVE ONE HEAPING TABLESPOON IN 8 OZ OF WATER OR JUICE DAILY NEEDED FOR CONSTIPATION. 510 g 5 024 Active Nitroglycerin 0.4 MG Sublingual Tablet Sublingual (Nitrostat)Indica tions:Chronic coronary artery disease Place 1 Tablet under the tongue every 5 minutes as needed for Pain, Chest. Max dose 3 tablets in 15 minutes 25 Tablet 5 024 Active Nystatin 154540 UNIT/GM External Powder (Nystop)Indicatio ns:Candidal intertrigo Apply topically to affected area 3 times a day. Apply to right breast until rash resolved. 30 g 024 Active Vitamin D (Ergocalciferol) 1.25 MG (81864 UT) Oral Capsule (Drisdol)Indicati ons:Vitamin D deficiency TAKE 1 CAPSULE BY MOUTH ONCE WEEKLY 12 Capsule 3 Active Insulin Glargine Solostar 100 UNIT/ML Subcutaneous Solution Pen-injector (Lantus SoloStar)Indicati ons:Type 2 diabetes mellitus with stage 3a chronic kidney disease, with long-term current use of insulin (HCC) Inject 35 units subcutaneously twice per day 30 mL 11 Active Additional Information Patient taking differently: Inject 30 units subcutaneously twice per day, Reported on 04/29/2024 ARIPiprazole 5 MG Oral Tablet (Abilify) Take 1 Tablet by mouth in the morning. 024 Active Excedrin Migraine 250-250-65 MG Oral Tablet (Aspirin-Acetamin ophen-Caffeine 250-250-65 mg per tab) Take 1 Tablet by mouth every 6 hours as needed. Active Acetaminophen 500 MG Oral Tablet (Tylenol) Take 1 Tablet by mouth every 6 hours as needed. Active guaiFENesin ER 600 MG Oral Tablet Extended Release 12 Hour (Mucinex) Take 1 Tablet by mouth in the morning and 1 Tablet before bedtime. Active Montelukast Sodium 10 MG Oral Tablet (Singulair)Indica tions:Nasal sinus congestion,PND (post-nasal drip) TAKE 1 TABLET BY MOUTH ONCE DAILY 90 Tablet 3 Active Potassium Chloride Mag ER 20 MEQ Oral Tablet Extended Release TAKE ONE TABLET BY MOUTH EVERY MORNING WHEN TAKING ADDITIONAL TORSEMIDE 90 Tablet Active metFORMIN HCl ER 500 MG Oral Tablet Extended Release 24 Hour (Glucophage XR) TAKE 1 TABLET BY MOUTH ONCE DAILY with dinner 90 Tablet 3 Active BD Pen Needle Mini U/F 31G X 5 MM (Insulin Pen Needle) use twice a day 200 Each Active Ozempic (2 MG/DOSE) 8 MG/3ML Subcutaneous Solution Pen-injector (Semaglutide (2 MG/DOSE))Indicati ons:Type 2 diabetes mellitus with diabetic neuropathy, with long-term current use of insulin (HCC) Inject 2 mg subcutaneous once per week 3 mL Active Xifaxan 550 MG Oral Tablet (rifAXIMin)Indica tions:GONZALEZ (nonalcoholic steatohepatitis), Chronic liver disease and cirrhosis (HCC),Hepatic encephalopathy (HCC) take 1 tablet by mouth twice daily 60 Tablet 5 07/22/2 024 Active Ondansetron HCl 8 MG Oral Tablet (Zofran)Indicatio ns:Nausea TAKE 1 TABLET BY MOUTH EVERY 8 HOURS NEEDED FOR NAUSEA 60 Tablet 5 024 Active Pantoprazole Sodium 40 MG Oral Tablet Delayed Release (Protonix)Indicat ions:Gastroesopha geal reflux disease without esophagitis TAKE 1 TABLET BY MOUTH TWICE DAILY every morning and every evening 180 Tablet 1 024 Active Levothyroxine Sodium 88 MCG Oral Tablet (Levoxyl)Indicati ons:Hypothyroidis m TAKE 1 TABLET BY MOUTH ONCE DAILY AT LEAST 30 MINUTES BEFORE BREAKFAST AND OTHER MEDICATIONS 90 Tablet 1 024 Active OneTouch Verio In Vitro Strip (Glucose Blood)Indications :Type 2 diabetes mellitus with diabetic neuropathy, with long-term current use of insulin (HCC) use to test blood sugar 3 times daily 300 Strip 3 024 Active Metoprolol Succinate ER 25 MG Oral Tablet Extended Release 24 Hour (toPROL XL)Indications:HT N, goal below 130/80 Take 1 tab by mouth twice per day 180 Tablet 3 024 Active Calcium Carbonate-Vitamin D 600-10 MG-MCG Oral Tablet Take 1 by mouth per day 90 Tablet 3 024 Active Spironolactone 50 MG Oral Tablet (Aldactone)Indica tions:GONZALEZ (nonalcoholic steatohepatitis), Portal hypertension (HCC),Chronic liver disease and cirrhosis (HCC),Portal hypertensive gastropathy (HCC) TAKE ONE TABLET BY MOUTH IN THE MORNING AND ONE TABLET BEFORE BEDTIME 180 Tablet 1 024 Active Additional Information Patient not taking.Reported on 05/13/2024 Torsemide 20 MG Oral Tablet (Demadex)Indicati ons:Atherosclerot ic heart disease of [place] coronary artery with other forms of angina pectoris (HCC),Hypertensiv e heart disease with chronic diastolic congestive heart failure (HCC) TAKE 1 TABLET BY MOUTH EVERY MORNING - may take an additional tablet if needed for swelling 90 Tablet 1 024 Active Venlafaxine HCl 100 MG Oral Tablet (Effexor) 1 Tablet. 024 Active Gabapentin 300 MG Oral Capsule (Neurontin)Indica tions:Lumbar spondylosis TAKE 1 CAPSULE BY MOUTH TWICE DAILY 60 Capsule 5 024 Active oxyCODONE-Acetami nophen 5-325 MG Oral Tablet (Percocet) Take 1 Tablet by mouth every 8 hours as needed for Pain, Severe. 8 Tablet Active clonazePAM 0.5 MG Oral Tablet (KlonoPIN)Indicat ions:Bipolar I disorder, most recent episode depressed, moderate (HCC) TAKE ONE TABLET BY MOUTH THREE TIMES DAILY 90 Tablet Active Nystatin 100121 UNIT/ML Mouth/Throat Suspension SWISH AND SWALLOW 5ML IN THE MORNING AND 5ML AT NOON AND 5 ML IN THE EVENING AND 5ML BEFORE BEDTIME, FOR THRUSH 240 mL 1 Active Ferrous Sulfate 325 (65 Fe) MG Oral Tablet Delayed Release Take 1 Tablet by mouth. Active traMADol HCl 50 MG Oral Tablet (Ultram) Take 1 Tablet by mouth every 6 hours as needed for Pain, Severe. 10 Tablet Active oxyBUTYnin Chloride ER 15 MG Oral Tablet Extended Release 24 Hour (Ditropan XL) Take 1 Tablet by mouth in the morning. 90 Tablet 3 Active predniSONE 10 MG Oral Tablet (Deltasone)Indica tions:Pneumonia due to infectious organism, unspecified laterality, unspecified part of lung Take 5 tabs for 2 days, 4 tabs for 2 days, 3 tabs for 2 days, 2 tabs for 2 days 1 tab for 2 days 30 Tablet Active Additional Information Patient not taking.Reported on 05/13/2024 Cetirizine HCl 10 MG Oral Tablet (ZyrTEC) Take 1 Tablet by mouth in the morning. 90 Tablet 3 Active Azithromycin 250 MG Oral Tablet (Zithromax Z-Sanchez) Take two tablets by mouth on first day, then 1 tablet daily until gone 6 Tablet Active Dicyclomine HCl 10 MG Oral Capsule (Bentyl)Indicatio ns:Abdominal pain TAKE 1 CAPSULE BY MOUTH FOUR TIMES DAILY NEEDED 120 Capsule 1 Active Dicyclomine HCl 10 MG Oral Capsule (Bentyl)Indicatio ns:Abdominal pain TAKE 1 CAPSULE BY MOUTH FOUR TIMES DAILY NEEDED for abdominal 120 Capsule 024 2023 Discontinued documented as of this encounter (statuses as of 05/19/2024) Active Problems Problem Noted Date Diagnosed Date Immunodeficiency 05/13/2024 Old LA (myocardial infarction) 05/13/2024 Recurrent UTI 03/23/2024 Pelvic [...] encounter 01/06/2023 Coronary artery disease invo lving [place] coronary artery of [place] heart without angina pectoris 11/15/2021 Assessment & Plan (03/12/2022 4:42 PM EDT): Stable. No angina -continue toprol, ASA and statin Seasonal allergies 11/15/2021 Type 2 diabetes mellitus wit h diabetic neuropathy, with long-term current use of insulin 08/27/2021 Assessment & Plan (03/12/2022 4:49 PM EDT): BS stable Last HgbA1C 7 12/26 -continue trulicity, lantus 30 u BID Assessment & Plan [...] weekly Avoid nephrotoxic drugs Urge incontinence 03/27/2021 residential (current) use of [...] Overview (09/28/2019): Updated due to amp error Mmpyiyk-Ymgoq-Caycc disease 12/31/2002 Assessment & Plan (12/31/2021 6:19 PM EDT): Frequent falls Home PT and OT continue GONZALEZ (nonalcoholic steatohepatitis) documented as of this encounter (statuses as of 05/19/2024) Resolved Problems Problem Noted Date Diagnosed Date [...] to see uro-obgyn hospitalist physician and ID Assessment & Plan (10/07/2021 1:47 [...] 05/06/2018 Atherosclerotic heart diseas e of [place] coronary artery with other forms of angina [...] stenosis 10/31/2010 08/28/2018 Acute coronary syndrome 10/30/201001/04 [facility] Other*[id number] 02/02/2010 04/18/2014 Overview (02/02/2010): [facility], Dr Joel Kwon PI Obesity, morbid [...] Duplicate Protocol #2. 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/2014 [employer] current use of ant icoagulant therapy [...] as of this encounter (statuses as of 05/19/2024) Immunizations Name Administration Dates Next Due COVID-19 [...] Telephone Encounter - Carmen Sifuentes MD - 05/19/2024 4:31 PM ESTSigned Prescriptions: Disp Refills Dicyclomine HCl 10 MG Oral Capsule (Bentyl)120 Ca*1 Sig: TAKE 1 CAPSULE BY MOUTH FOUR TIMES DAILY NEEDEDAuthorizing Provider: CARMEN SIFUENTES * Telephone Encounter - Interface, E-Rx Ss Inbound - 05/19/2024 6:05 AM EST Pending Prescriptions: Disp Refills Dicyclomine HCl 10 MG Oral Capsule [Pharma*120 Ca*0 Sig: TAKE 1 CAPSULE BY MOUTH FOUR TIMES DAILY NEEDED * Telephone Encounter - Ema Bland RP - 05/18/2024 1:47 PM EST Pending Prescriptions: Disp Refills Dicyclomine HCl 10 MG Oral Capsule [Pharma*120 Ca*0 Sig: TAKE 1 CAPSULE BY MOUTH FOUR TIMES DAILY NEEDED * Telephone Encounter - Ema Bland RP - 05/18/2024 1:46 PM EST [facility] is currently not authorized to approve refills for the pended medication(s) per refill protocol. Please approve if appropriate. Thank you, Ema Bland, PharmD Clinical Pharmacist [facility] ([facility]) 05/18/24 1:47 PM [phone] documented in this encounter Plan of Treatment Upcoming Encounters Date Type Department Care Team (Late st Contact Info) Description 05/24/2024 3:40 PM EST Office Visit Nephrology, [address] [place] [address] Maurilio Smith MD [address], [place] [id number] 05/27/2024 10:30 AM EST Scheduled Telephone [facility], [facility] [address] [place] [address] Jesusita Saenz, KELLYN [address] [place] [address] 06/08/2024 6:00 PM EST Office Visit [facility], [facility] [address] [facility] [address] Carmen Sifuentes [facility] [address] [facility] [address] 06/23/2024 11:45 AM EST Office Visit Urology, [facility] [address] [place] [address] Alfredo Panda MD [address] [facility] [place] [address] 06/24/2024 2:30 PM EST Home Visit ising at [facility] [address] [place] [address] Al Doyle, KAT [address] [facility] [place] [address] Scheduled Procedures Name Priority Associated Diagnoses Date/Ti [...] Additional history exists CKD PHOS USE SMARTSET 21019 10/24/202310/05, 02/18/2022, 02/17/2022, Additional history exists COVID-19 [...] COPD 04/08/2025 04/08/2024 CKD HGB USE SMARTSET 83594 04/29/202504/29, 04/29/2024, 02/19/2024, Additional history exists DTap/Tdap [...] this encounter Medical Devices Implanted Type Area Chlorination Operator Device Identifier Shelf Expiration Date Model / Serial / Lot Sut Bob 6 [id number] - [id number] Implanted:Qty: 3 on 02/15/2011 at OR [facility] N/A: Chest DO NOT USE 01/15/2015 [id number] / / [id number] [facility] [id number] - [id number] Implanted:Qty: 1 on 02/15/2011 at OR [facility] N/A: Chest [employer] [id number] / / [id number] [facility] 6 M654g - [id number] Implanted:Qty: 1 on 02/15/2011 at OR [facility] N/A: Chest DO NOT USE 07/21/2015 M654G / / [id number] documented as of this encounter Visit Diagnoses Diagnosis Ojptdkq-Hxfji-Uzqsl disease- Primary Peroneal muscular atrophy Diabetic gastroparesis (HCC) Type II or unspecified type diabetes mellitus with neurological manifestations, not stated as uncontrolled residential (current) use of insulin (HCC) Portal hypertensive gastropathy (HCC) Other specified disorder of stomach and duodenum Bipolar I disorder, most recent episode depressed, [...] UTI Urinary tract infection, site not specified Type 2 diabetes mellitus with diabetic neuropathy, with long-term current use of insulin (HCC) Other chronic pain Open wound of left heel, initial encounter- Primary Type 2 diabetes mellitus with diabetic neuropathy, with long-term current use of insulin (HCC) Lumbar spondylosis Lumbosacral spondylosis without myelopathy Atherosclerotic heart disease of [place] coronary artery with other forms of angina pectoris (HCC) Hypertensive heart disease with chronic diastolic congestive heart failure (HCC) GONZALEZ (nonalcoholic steatohepatitis) Other chronic nonalcoholic liver disease Portal hypertension (HCC) Portal hypertension Chronic liver disease and cirrhosis (HCC) Unspecified chronic liver disease without mention of alcohol Portal hypertensive gastropathy (HCC) Other specified disorder of stomach and duodenum 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) Bipolar I disorder, most recent episode depressed, moderate (HCC) Bipolar I disorder, most recent episode (or current) depressed, moderate Advanced care planning/counseling discussion Other specified counseling COPD, group B, by GOLD 2017 classification ([facility])- Primary Bipolar I disorder, most recent episode [...] Advanced care planning/counseling discussion Other specified counseling 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 Communication Carolyn Ballard Adult Child Health Care Agent Care Teams Make Up Arranger Relationship Specialty Start Date End Date Carmen Sifuentes MD [address] [place] [address] PCP - General Family Medicine 07/16/17 documented as of this encounter
--- OUTSIDE RECORDS SUMMARY | 2024-05-24 16:54 | External Medical Summary | Summary of Care ---
Author Name Unknown Organization [facility] Address [address] [place] [address] Phone [phone] Care Team Providers Care Pharmacy Technician Program Director Name Role Phone Brian Domínguez MD Primary Care Provider [phone]- [phone] Reason for Visit * Reason Onset Date Comments Nurse Documentation 05/04/2024 Encounter Details Date Type Department Care Team (Late st Contact Info) Description 05/04/2024 Telephone [facility] [address] [place] [address] Marcelle Landa MD [address] [place] [address] Nurse Documentation Allergies Active Allergy Reactions Criticality Noted Date Comments Propoxyphene Hcl Rash Low 10/29/2010 Fentanyl Diarrhea Low 04/26/2010 anxiety Methocarbamol Medium 10/05/2020 Other reaction(s): Delirium Methocarbamol Low 04/15/2007 Zolpidem Low 10/05/2020 Other reaction(s): Confusion documented as of this encounter (statuses as of 05/17/2024) Medications venlafaxine XR (EFFEXOR XR) 150 MG [id number]:De pression Take 1 Cap by mouth daily. [...] 11/19/19 18 Active Blood Glucose Monitoring Suppl ([employer] VERIO) w/Device KIT Use as directed. Use as directed. 1 Kit 11/01/19 19 Active Spacer/Aero-Holdin g Chambers WISAM Use with inhaler. Wheezing/bronchit is. 1 Device 04/08/20 19 Active Lancet Devices (MyStarAutographTOUCH DELICA LANCING DEV) MISC Use four times [...] FOR CONSTIPATION. 510 g 09/22/19 24 Active Nitroglycerin 0.4 MG Sublingual Tablet Sublingual (Nitrostat)Indicat ions:Chronic coronary artery disease Place 1 Tablet under the tongue every 5 minutes as needed for Pain, Chest. Max dose 3 tablets in 15 minutes 25 Tablet 5 10/16/19 24 Active Nystatin 705413 UNIT/GM External Powder (Nystop)Indication s:Candidal intertrigo Apply topically to affected area 3 times a day. Apply to right breast until rash resolved. 30 g 10/16/19 24 Active Vitamin D (Ergocalciferol) 1.25 MG (23850 UT) Oral Capsule (Drisdol)Indicatio ns:Vitamin D deficiency TAKE 1 CAPSULE BY MOUTH ONCE WEEKLY 12 Capsule 3 11/10/19 24 Active Insulin Glargine Solostar 100 UNIT/ML Subcutaneous Solution Pen-injector (Lantus SoloStar)Indicatio ns:Type 2 diabetes mellitus with stage 3a chronic kidney disease, with long-term current use of insulin (HCC) Inject 35 units subcutaneously twice per day 30 mL 11 11/18/19 24 Active Additional Information Patient taking [...] MEDICATIONS 90 Tablet 1 03/11/20 24 Active OneTouch Verio In Vitro Strip [...] BEDTIME 180 Tablet 1 03/31/20 24 Active Additional Information Patient not taking.Reported on 05/13/2024 Torsemide 20 MG Oral Tablet (Demadex)Indicatio ns:Atherosclerotic heart disease of [place] coronary artery with other forms of angina pectoris (HCC),Hypertensive heart disease with chronic diastolic congestive heart failure (HCC) TAKE 1 TABLET BY MOUTH EVERY MORNING - may take an additional tablet if needed for swelling 90 Tablet 1 03/31/20 24 Active Venlafaxine HCl 100 MG Oral Tablet (Effexor) 1 Tablet. 03/01/20 24 Active Gabapentin 300 MG Oral Capsule (Neurontin)Indicat ions:Lumbar spondylosis TAKE 1 CAPSULE BY MOUTH TWICE DAILY 60 Capsule 5 04/09/20 24 Active oxyCODONE-Acetamin ophen 5-325 MG Oral Tablet (Percocet) Take 1 Tablet by mouth every 8 hours as needed for Pain, Severe. 8 Tablet 04/08/20 24 Active Dicyclomine HCl 10 MG Oral Capsule (Bentyl)Indication s:Abdominal pain TAKE 1 CAPSULE BY MOUTH FOUR TIMES DAILY NEEDED for abdominal 120 Capsule 04/14/20 24 Active clonazePAM 0.5 MG Oral Tablet (KlonoPIN)Indicati ons:Bipolar I disorder, most recent episode depressed, moderate (HCC) TAKE ONE TABLET BY MOUTH THREE TIMES DAILY 90 Tablet 04/26/20 24 Active Nystatin 096427 UNIT/ML Mouth/Throat Suspension SWISH AND SWALLOW 5ML IN THE MORNING AND 5ML AT NOON AND 5 ML IN THE EVENING AND 5ML BEFORE BEDTIME, FOR THRUSH 240 mL 1 04/26/20 Active Ferrous Sulfate 325 (65 Fe) MG Oral Tablet Delayed Release Take 1 Tablet by mouth. 04/27/20 24 Active traMADol HCl 50 MG Oral Tablet (Ultram) Take 1 Tablet by mouth every 6 hours as needed for Pain, Severe. 10 Tablet 05/03/20 24 Active oxyBUTYnin Chloride ER 15 MG Oral Tablet Extended Release 24 Hour (Ditropan XL) Take 1 Tablet by mouth in the morning. 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 Pt also to see uro-labor arbitrator and ID Assessment & Plan (10/07/2021 1:47 [...] liver 05/06/2018 Atherosclerotic heart diseas e of [place] coronary [...] 08/28/2018 Acute coronary syndrome 10/30/201001/04 [place] Research Other*[id number] 02/02/2010 04/18/2014 Overview (02/02/2010): [place] [facility], Dr Joel CASAS Obesity, morbid (more [...] as of this encounter (statuses as of 05/17/2024) Immunizations Name Administration Dates Next Due COVID-19 [...] Telephone Encounter - Marva Valenzuela LPN - 05/17/2024 1:38 PM EST Letter sent * Telephone Encounter - Melany Pond LPN - 05/05/2024 9:46 AM EDT Left message on machine to return call. Please see below. * Telephone Encounter - Melany Pond LPN - 05/05/2024 9:46 AM EDT Left message on machine to return call. Please see message below. * Telephone Encounter - Marcelle Landa MD - 05/04/2024 1:01 PM EDT Blood tests showed low sodium and some electrolytes abnormality which is very common with PNA Also she showed high glucose but she is taking all her meds for DM And if glucose runs high, please let us know Other tests were good Would like to repeat her metabolic panel for electrolytes Please get is done in 2 wks, non fasting documented in this encounter Plan of Treatment Upcoming Encounters Date Type Department Care Team (Late st Contact Info) Description 05/19/2024 10:00 AM EST [facility] Visit [facility], [facility] [address] [address] Al Doyle, KAT [address] [place] [address] 05/24/2024 3:40 PM EST Office Visit Nephrology, [facility] [address] [place] [address] Maurilio Smith MD [address] [place] [address], [place] [address] 05/27/2024 10:30 AM EST Scheduled Telephone [facility], [facility] [address] [facility] [place] [address] KeanuJesusita macias, RDN [address] [facility] [place] [address] 06/08/2024 6:00 PM EST [facility] [address] [place] [address] Brian Domínguez MD [address] [place] [address] 06/23/2024 11:45 AM EST Office Visit Urology, [facility] [address] [facility] [place] [address] Alfredo Panda MD [address] [place] [address] Scheduled Orders Name Type Priority Associated Diagnoses Orde r Schedule BASIC METABOLIC PANEL Lab Routine Hyponatremia Expected: 05/04/2024 (Approximate), Expires: 05/04/2025 Scheduled Procedures Name Priority Associated Diagnoses Date/Ti [...] Additional history exists CKD PHOS USE SMARTSET 85468 10/24/202310/05, 02/18/2022, 02/17/2022, Additional history exists COVID-19 [...] COPD 04/08/2025 04/08/2024 CKD HGB USE SMARTSET 83066 04/29/202504/29, 04/29/2024, 02/19/2024, Additional history exists DTap/Tdap [...] this encounter Medical Devices Implanted Type Area Sterile Processing Technician Device Identifier Shelf Expiration Date Model / Serial / Lot Jenna Rojas 6 M654g - [id number] Implanted:Qty: 3 on 02/15/2011 at OR [facility] [place] N/A: Chest DO NOT USE 01/15/2015 M654G / / [id number] Band Magdy 525-626 - [id number] Implanted:Qty: 1 on 02/15/2011 at OR [facility] N/A: Chest [employer] 225-822 / / [id number] Sut Steel 6 M654g - [id number] Implanted:Qty: 1 on 02/15/2011 at OR [facility] [place] N/A: Chest DO NOT USE 07/21/2015 M654G / / [id number] documented as of this encounter Visit Diagnoses Diagnosis 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 Diabetic gastroparesis (HCC) Type II or unspecified type diabetes mellitus with neurological manifestations, not stated as uncontrolled MCFP (current) use of insulin (HCC) Portal hypertensive [...] spondylosis without myelopathy Atherosclerotic heart disease of [place] coronary artery with [...] B, by GOLD 2017 classification ([facility])- Primary Bipolar I disorder, most recent episode [...] use of insulin (HCC) Tachycardia Tachycardia, unspecified Hyponatremia- Primary Hyposmolality and/or hyponatremia documented in this encounter Advance Directives Documents on File Type Date Recorded Patient Matrix Drier Tender Expl anation POLST 05/06/2018 POLST * [...] Adult Child Health Care Agent Care Teams Pharmacy Technician Program Director Relationship Specialty Start Date End Date Brian Domínguez MD [address] [place] [address] PCP - General Family Medicine 07/16/17 documented as of this encounter
--- OUTSIDE RECORDS SUMMARY | 2024-05-24 16:54 | External Medical Summary | Summary of Care ---
Author Name Unknown Organization [facility] Address [address] [facility] [place] [address] Phone [phone] Care Team Providers Care Sales Professional Bilingual Name Role Phone Brian Domínguez MD Primary Care Provider [phone]- [phone] Encounter Details Date Type Department Care Team (Late st Contact Info) Description 05/19/2024 10:00 AM EST [facility], [facility] [address] [place] [address] Al Doyle, RN [address] [place] [address] Allergies Active Allergy Reactions Criticality Noted Date Comments Propoxyphene Hcl Rash Low 10/29/2010 Fentanyl Diarrhea Low 04/26/2010 anxiety Methocarbamol Medium 10/05/2020 Other reaction(s): Delirium Methocarbamol Low 04/15/2007 Zolpidem Low 10/05/2020 Other reaction(s): Confusion documented as of this encounter (statuses as of 05/19/2024) Medications venlafaxine XR (EFFEXOR XR) 150 MG [id number]:De pression Take 1 Cap by mouth daily. [...] 11/19/19 18 Active Blood Glucose Monitoring Suppl ([employer] VERIO) w/Device KIT Use as directed. Use as directed. 1 Kit 11/01/19 19 Active Spacer/Aero-Holdin g Chambers WISAM Use with inhaler. Wheezing/bronchit is. 1 Device 04/08/20 19 Active Lancet Devices (CoinsetterUCH DELICA LANCING DEV) MISC Use four times [...] 25 Tablet 5 10/16/19 24 Active Nystatin 807028 UNIT/GM External Powder (Nystop)Indication s:Candidal intertrigo Apply topically to affected area 3 times a day. Apply to right breast until rash resolved. 30 g 10/16/19 24 Active Vitamin D (Ergocalciferol) 1.25 MG (21432 UT) Oral Capsule (Drisdol)Indicatio ns:Vitamin D deficiency [...] Oral Tablet (Demadex)Indicatio ns:Atherosclerotic heart disease of [place] coronary artery with other forms of angina [...] DAILY 90 Tablet 04/26/20 24 Active Nystatin 900143 UNIT/ML Mouth/Throat Suspension SWISH AND SWALLOW 5ML IN THE MORNING AND 5ML AT NOON AND 5 ML IN THE EVENING AND 5ML BEFORE BEDTIME, FOR THRUSH 240 mL 1 04/26/20 24 Active Ferrous Sulfate 325 (65 Fe) MG [...] morning. 90 Tablet 3 05/03/20 24 Active predniSONE 10 MG Oral Tablet (Deltasone)Indicat ions:Pneumonia due to infectious organism, unspecified laterality, unspecified part of lung Take 5 tabs for 2 days, 4 tabs for 2 days, 3 tabs for 2 days, 2 tabs for 2 days 1 tab for 2 days 30 Tablet 05/05/20 24 Active Additional Information Patient not taking.Reported on 05/13/2024 Cetirizine HCl 10 MG Oral Tablet (ZyrTEC) Take 1 Tablet by mouth in the morning. 90 Tablet 3 05/13/20 24 Active Azithromycin 250 MG Oral Tablet (Zithromax Z-Sanchez) Take two tablets by mouth on first day, then 1 tablet daily until gone 6 Tablet 05/13/20 24 Active documented as of this encounter (statuses as of 05/19/2024) Active Problems Problem Noted Date Diagnosed Date Immunodeficiency 05/13/2024 Old [place] (myocardial infarction) 05/13/2024 Recurrent UTI 03/23/2024 Pelvic [...] encounter 01/06/2023 Coronary artery disease invo lving [place] coronary artery of [place] heart without angina pectoris 11/15/2021 Assessment & [...] weekly Avoid nephrotoxic drugs Urge incontinence 03/27/2021 shelter (current) use of [...] Overview (09/28/2019): Updated due to amp error Gsudpxe-Vjbyz-Rebll disease 12/31/2002 Assessment & Plan (12/31/2021 6:19 [...] wound of left heel 03/12/2022 01/0 08/2022 Assessment & Plan (03/12/2022 4:48 PM EDT): [...] is giving this. Pt also to see uro-stoner out and ID Assessment & Plan (10/07/2021 1:47 [...] liver 05/06/2018 Atherosclerotic heart diseas e of [place] coronary artery with other forms of angina [...] 08/28/2018 Acute coronary syndrome 10/30/201001/04 [place] Research Other*[id number] 02/02/2010 04/18/2014 Overview (02/02/2010): [place] [facility], Dr Joel Kwon PI Obesity, morbid [...] Sign Reading Time Taken Comments Blood Pressure 142/80 05/19/2024 2:08 PM EST Pulse 70 05/19/2024 2:08 PM EST Temperature 37 C (98.6 F) 05/19/2024 2:08 PM EST Respiratory Rate 18 05/19/2024 2:08 PM EST Oxygen Saturation 95% 05/19/2024 2:08 PM EST Inhaled Oxygen Concentration - - Weight - - Height - - Body Mass Index - - documented in this encounter Progress Notes * Al Doyle, KAT - 05/19/2024 1:39 PM EST Current Concerns: Situation: Pt seen today by [facility] city supervisor for routine follow-up visit. Background: PMH includes: COPD, bipolar, liver cirrhosis, CAD, dyslipidemia, HTN, CHF, CKD3, hypothyroidism, IDDM, aortic stenosis Assessment: When asked how she is doing pt reports "I'm in a depression" Pt reports struggling with physical limitations and having to rely on others for things she once could do Pt daughter Carolyn reports there are multiple stressors in the home recently- daughter Radha living at pt home on and off and has moved her cats into pts home and is relying on pt and pt other daughterCarolyn to assist her with finances; Carolyn and pt disagreeing over whether or not pt can safely drive her own vehicle Pt reports that she likes to go for car rides but has difficulty getting CG/family members to take her Pt wanting CG to drive pt to take her out places, go for mountain rides, go shopping Daughter reports CG often use excuse that they have no gas in their car Pt wanting CG to drive her car, CG stating they are not allowed to drive pt car, so pt has convinced multiple CG to allow her to drive although pt knows that Carolyn does not believe she is safe to drive despite never having her license revoked Daughter stating she is going to call CG company to verify if they can drive pt car Carolyn reports CG do not care for pt as well as she would like them to Carolyn states she has been told she needs to "lower expectations" for CG Pt reports that CG are often on their phones and not interactive with pt Pt verbalizes difficulty asking CG for help or to assist her with things Pt reports she does not like having to ask CG to do things with her such as play cards or board game Carolyn states CG often "lack common sense" and do things that cause pt more issues but could be avoided- for instance CG left pt car keys in car, also left dog in car, while she went into store, and dog locked keys in car which was costly to pt Carolyn states they do not make reports to CG company because pt gets 24 care and they fear if report is made, CG will quit caring for pt and then pt will have care deficit as it has been difficult to find CG to provide round the clock care Pt and Carolyn both tearful throughout visit Pt also states difficulty finding things that bring her gen or interest Pt reports feeling disinterested and "bored" with everything Carolyn states that pt often asks what the point of living is anymore if she cannot do anything Pt denies suicidal ideation, plan or intent to harm self or others Discussed a few things pt could do independently- cheli dotting, coloring, puzzles, solitaire Pt daughter reports pt also seems to have financial issues which coordinate with mood Per daughter last month pt has experienced some financial issues- threw away a check, was spending money without regard to bills Frequently asking CG to go out and purchase things for her but then wondering "where all of the money went" Pt daughter reports she is trying to implement a receipt book for all CG to use, to keep track of money spent, and what it is being spent on Pt does have diagnosis of bipolar 1 Discussed referral to [facility] Pt agreeable, and Carolyn also believes this would be helpful to pt Placed referral Suprapubic cath draining clear yellow Cath site free of redness, irration, drainage, odor at time of visit Pt denies issues or concerns regarding catheter Daughter continues daily dressing changes with cleaning BID Pt reports that she does occasionally have "spasm pain" in lower abdomen, bladder region Pt reports urology is aware Trace edema to BLE Pt denies new cough, SOB, [place] above baseline Pt reports medically she is "doing much better" States that biggest concerns are mental health currently Physical Exam: Physical Exam Cardiovascular: Rate and Rhythm: Normal rate and regular rhythm. Pulmonary: Effort: Pulmonary effort is normal. Breath sounds: Normal breath sounds. Abdominal: General: Bowel sounds are normal. Palpations: Abdomen is soft. Musculoskeletal: General: Normal range of motion. Skin: General: Skin is warm and dry. Capillary Refill: Capillary refill takes 2 to 3 seconds. Neurological: General: No focal deficit present. Mental Status: She is alert. Mental status is at baseline. Psychiatric: Mood and Affect: Mood is depressed. Affect is tearful. Behavior: Behavior is withdrawn. Review of Systems: Review of Systems Constitutional: Negative. HENT: Negative. Eyes: Negative. Respiratory: Negative. Negative for cough and shortness of breath. Cardiovascular: Positive for leg swelling (Trace). Gastrointestinal: Negative. Genitourinary: Negative. Musculoskeletal: Positive for gait problem. Skin: Suprapubic cath site Neurological: Negative for dizziness, speech difficulty, light-headedness and headaches. Psychiatric/Behavioral: Negative. Care Plan Goal Progress: Aseptic care of all invasive lines & tubes will be maintained. (Progressing) Start: 04/29/24 Expected End: 06/04/24 Patient will remain free from infection. (Progressing) Start: 04/29/24 Expected End: 06/04/24 Orders Placed: No orders of the defined types were placed in this encounter. Care Gaps: Care Gaps Care gaps closed this contact:: Education;Behavioral health treatment coordination (05/19/24 6106) documented in this encounter Plan of Treatment Upcoming Encounters Date Type Department Care Team (Late st Contact Info) Description 05/24/2024 3:40 PM EST Office Visit Nephrology, [facility] [address] [facility] [place] [address] Maurilio Smith MD [address] [place] [address] 05/27/2024 10:30 AM EST Scheduled Telephone [facility], [facility] [address] [facility] [place] [address] Jesusita Saenz, RDN [address] [facility] [place] [address] 06/08/2024 6:00 PM EST [facility] [address] [place] [address] Brian Domínguez MD [address] [place] [address] 06/23/2024 11:45 AM EST Office Visit Urology, [facility] [address] [facility] [place] [address] Alfredo Panda MD [address] [facility] [place] [address] 06/24/2024 2:30 PM EST Home Visit [facility], [facility] [address] [facility] [place] [address] Al Doyle, KAT [address] [facility] [place] [address] Scheduled Procedures Name Priority Associated Diagnoses Date/Ti [...] Additional history exists CKD PHOS USE SMARTSET 15500 10/24/202310/05, 02/18/2022, 02/17/2022, Additional history exists COVID-19 Vaccine ( season) 2024 06/10/2021, 08/29/2020, 08/01/2020 Colonoscopy 05/20/2024 05/20/2014 Colorectal Cancer Screening 05/20/2024 TSH 06/17/2024 06/17/2023, 05/08, 02/13/2023, Additional history exists HbA1c 08/21/2024 02/19/2024, 12/2023, 10/17/2023, Additional history exists Diabetic Foot Exam 10/15/2024 10/16/2023, 1 07/22/2019, 02/22/2019, Additional history exists GFR 10/28/2024 04/29/2024, 02/04, 10/21/2023, Additional history exists Albumin/Creatinine Ratio 11/03/2024 024, 10/23/2022, 07/17/2022, Additional history exists O2 ASSESSMENT COMPLETED IN PAST YEAR FOR COPD 04/08/2025 04/08/2024 CKD HGB USE SMARTSET 54675 04/29/202504/29, 04/29/2024, 02/19/2024, Additional history exists DTap/Tdap [...] this encounter Medical Devices Implanted Type Area Drawing In Machine Tender Helper Device Identifier Shelf Expiration Date Model / Serial / Lot Jenna Rojas 6 M654g - [id number] [place] [facility] [place]: Chest DO NOT USE 01/15/2015 M654G / / [id number] Band Magdy 225-241 - [id number] Implanted:Qty: 1 [place] 02[place]2011 [place] [facility] [place]: Chest [employer] 225-241 / / [id number] Jenna Rojas 6 M654g - [id number] Implanted:Qty[place] 1 [place]2011 [place] [facility] [place]: Chest DO NOT USE 07/21/2015 M654G / / [id number] documented as of this encounter Advance Directives Documents on File Type Date Recorded Patient Manager Registration Expl anation POLST 05/06/2018 POLST * Full [...] Agent [facility] p Communication Carolyn Ballard Adult Child Health Care Agent Care Teams Sales Professional Bilingual Relationship Specialty Start Date End Date Brian Domínguez MD [address] [facility] [place] [address] PCP - General Family Medicine 07/16/17 documented as of this encounter
--- OUTSIDE RECORDS SUMMARY | 2024-05-24 16:55 | External Medical Summary | Summary of Care ---
Author Name Unknown Organization [facility] Address [address] [place] [address] Phone [phone] Care Team Providers Care Appliance Fixer Name Role Phone Brian Domínguez MD Primary Care Provider [phone] Reason for Visit * Reason Comments Hospital Follow-Up Patient is here for a hospital follow up from [facility] 04/20- 04/24 for altered mental status. Patient would like another dose of Cefdinir if appropriate because she is still coughing and not feeling quite well. Encounter Details Date Type Department Care Team (Latest Contact Info) Description 05/13/2024 6:20 PM EST Office Visit [facility] [address] [place] [address] Marcelle Landa MD [address] [place] [address] COPD, group B, by GOLD 2017 classification ([facility])*; Allergic rhinitis, unspecified seasonality, unspecified trigger; Immunodeficiency (HCC); [place] (myocardial infarction); Type 2 diabetes mellitus with stage 3a chronic kidney disease, with long-term current use of insulin (HCC); Chronic liver disease and cirrhosis ([facility]) Allergies Active Allergy Reactions Criticality Noted Date Comments Propoxyphene Hcl Rash Low 10/29/2010 Fentanyl Diarrhea Low 04/26/2010 anxiety Methocarbamol Medium 10/05/2020 Other reaction(s): Delirium Methocarbamol Low 04/15/2007 Zolpidem Low 10/05/2020 Other reaction(s): Confusion documented as of this encounter (statuses as of 05/13/2024) Medications Medication Sig Dispensed Refills Start Date End Date Status venlafaxine XR (EFFEXOR XR) 150 MG [id number]:Dep ression Take 1 Cap by mouth daily. With food. 30 Cap 5 09/02/2016 Active Additional Information Patient taking differently: 225 mgOral Daily(AM),Taking a total of 225 mg, Indications: Takes 225 mg total every morning with food (150 mg tab + 75 mg tab), Reported on 03/03/2023 Blood Glucose Monitoring Suppl ([employer] GLUCOMETER) w/Device KITIndications:Unco ntrolled type 2 diabetes mellitus without complication, without long-term current use of insulin Use as directed. Use as directed once daily 1 Kit 11/18/2017 Active Blood Glucose Monitoring Suppl ([employer] VERIO) w/Device KIT Use as directed. Use [...] minutes 25 Tablet 5 10/16/2023 Active Nystatin 868561 UNIT/GM External Powder (Nystop)Indications :Candidal intertrigo Apply topically to affected area 3 times a day. Apply to right breast until rash resolved. 30 g 10/16/2023 Active Vitamin D (Ergocalciferol) 1.25 MG (44028 UT) Oral Capsule (Drisdol)Indication s:Vitamin D deficiency TAKE 1 CAPSULE BY MOUTH ONCE WEEKLY 12 Capsule 3 11/10/2023 Active Insulin Glargine Solostar 100 UNIT/ML Subcutaneous Solution Pen-injector (Lantus SoloStar)Indication s:Type 2 diabetes mellitus with stage 3a chronic kidney disease, with long-term current use of insulin (HCC) Inject 35 units subcutaneously twice per day 30 mL 11 11/18/2023 Active Additional Information Patient taking differently: Inject [...] AND OTHER MEDICATIONS 90 Tablet 03/11/2024 Active Nuvyyo In Vitro Strip (Glucose Blood)Indications:T ype 2 diabetes mellitus with diabetic neuropathy, with long-term current use of insulin ([facility]) use to test blood sugar 3 times daily 300 Strip 3 03/19/2024 Active Metoprolol Succinate ER 25 MG [...] TABLET BEFORE BEDTIME 180 Tablet 03/31/2024 Active Additional Information Patient not taking.Reported on 05/13/2024 Torsemide 20 MG Oral Tablet (Demadex)Indication s:Atherosclerotic heart disease of [place] coronary artery with other forms of angina pectoris (HCC),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 03/01/2024 Active Gabapentin 300 MG Oral Capsule (Neurontin)Indicati ons:Lumbar spondylosis TAKE 1 CAPSULE BY MOUTH TWICE DAILY 60 Capsule 5 04/09/2024 Active oxyCODONE-Acetamino phen 5-325 MG Oral Tablet (Percocet) Take 1 Tablet by mouth every 8 hours as needed for Pain, Severe. 8 Tablet 04/08/2024 Active Dicyclomine HCl 10 MG Oral Capsule (Bentyl)Indications :Abdominal pain TAKE 1 CAPSULE BY MOUTH FOUR TIMES DAILY NEEDED for abdominal 120 Capsule 04/14/2024 Active clonazePAM 0.5 MG Oral Tablet (KlonoPIN)Indicatio ns:Bipolar I disorder, most recent episode depressed, moderate (HCC) TAKE ONE TABLET BY MOUTH THREE TIMES DAILY 90 Tablet 04/26/2024 Active Nystatin 372503 UNIT/ML Mouth/Throat Suspension SWISH AND SWALLOW 5ML IN THE MORNING AND 5ML AT NOON AND 5 ML IN THE EVENING AND 5ML BEFORE BEDTIME, FOR THRUSH 240 mL 1 04/26/2024 Active Ferrous Sulfate 325 (65 Fe) MG Oral Tablet Delayed Release Take 1 Tablet by mouth. 04/27/2024 Active traMADol HCl 50 MG Oral Tablet (Ultram) Take 1 Tablet by mouth every 6 hours as needed for Pain, Severe. 10 Tablet 05/03/2024 Active oxyBUTYnin Chloride ER 15 MG Oral Tablet Extended Release 24 Hour (Ditropan XL) Take 1 Tablet by mouth in the morning. 90 Tablet 3 05/03/2024 Active Cefdinir 300 MG Oral Capsule (Omnicef)Indication s:Pneumonia due to infectious organism, unspecified laterality, unspecified part of lung Take 1 Capsule by mouth in the morning and 1 Capsule before bedtime. Do all this for 10 days. 20 Capsule 05/05/2024 05/15/20 24 Active Additional Information Patient not taking.Reported on 05/13/2024 predniSONE 10 MG Oral Tablet (Deltasone)Indicati ons:Pneumonia due to infectious organism, unspecified laterality, unspecified part of lung Take 5 tabs for 2 days, 4 tabs for 2 days, 3 tabs for 2 days, 2 tabs for 2 days 1 tab for 2 days 30 Tablet 05/05/2024 Active Additional Information Patient not taking.Reported on 05/13/2024 Cetirizine HCl 10 MG Oral Tablet (ZyrTEC) Take 1 Tablet by mouth in the morning. 90 Tablet 3 05/13/2024 Active Azithromycin 250 MG Oral Tablet (Zithromax Z-Sanchez) Take two tablets by mouth on first day, then 1 tablet daily until gone 6 Tablet 05/13/2024 Active documented as of this encounter (statuses as of 05/13/2024) Active Problems Problem Noted Date Diagnosed Date Immunodeficiency 05/13/2024 Old [place] (myocardial infarction) 05/13/2024 Recurrent UTI 03/23/2024 Pelvic [...] encounter 01/06/2023 Coronary artery disease invo lving [place] coronary artery of [place] heart without angina pectoris 11/15/2021 Last Assessment [...] 05/04/2004 Overview: Updated due to amp error Tepvszx-Remlz-Rpvyv disease 12/31/2002 Last Assessment & Plan: Frequent falls Home PT and OT continue GONZALEZ (nonalcoholic steatohepatitis) documented as of this encounter (statuses as of 05/13/2024) Resolved Problems Problem Noted Date Diagnosed Date [...] is giving this. Pt also to see uro-busser and ID Acute cystitis without hematuria 03/27/2021 07/08/2022 Pelvic pain 03/27/2021 02/03/2024 Type 2 diabetes mellitus wit h diabetic neuropathy 09/07/2018 11/07/2023 Overview: duplicate Mild protein-calorie malnutrition 05/07/2018 04/29/2019 Diabetes mellitus with neuropathy 05/06/2018 09/07/2018 Other cirrhosis of liver 05/06/2018 Atherosclerotic heart diseas e of [place] coronary artery with other forms of angina [...] stenosis 10/31/2010 08/28/2018 Acute coronary syndrome 10/30/201001/04 [employer] Other*[id number] 02/02/2010 04/18/2014 Overview: [place], Dr Althea Kwon PI Obesity, morbid [...] 01/21/2014 intermediate frame tender current use of ant icoagulant therapy [...] as of this encounter (statuses as of 05/13/2024) Immunizations Name Administration Dates Next Due COVID-19 [...] and older)(Boostrix) 06/27/2015 Varicella Zoster Vaccine (Adult) 08/09/2016,0 03/2016 documented as of this encounter Social [...] Reading Time Taken Comments Blood Pressure 118/74 05/13/2024 6:18 PM EST Pulse 65 05/13/2024 6:18 PM EST Temperature 36.2 C (97.1 F) 05/13/2024 6:18 PM ES T Respiratory Rate 18 05/13/2024 6:18 PM EST Oxygen Saturation 96% 05/13/2024 6:18 PM EST Inhaled Oxygen Concentration - - Weight - - Height - - Body Mass Index - - documented in this encounter Patient Instructions * Patient Instructions* Marcelle Landa MD - 05/13/2024 6:42 PM EST Continue singulair 10 mg AM daily + zyrtec 10 mg PM daily And trial netti pot or saline spray to clean up sinus and then use flonase daily Consider air purifier And continue all the chest exercise Cont inhaler Zpak documented in this encounter Progress Notes * Marcelle Landa MD - 05/13/2024 6:29 PM EST Subjective Angelina Ballard is a 73 year old female. Chief Complaint Patient presents with Hospital Follow-Up Patient is here for a hospital follow up from [facility] 04/20-04/24 for altered mental status. Patient would like another dose of Cefdinir if appropriate because she is still coughing and not feeling quite well. HPI: Was recently seen for hospital f/u on Apr 29 Dx: AMS, acute metabolic encephalopathy due to acute resp failure , COPD exacerbation with PNA Still coughing from drainage, worse at night Denies fever, chest pain Keeping neb with flutter and spirometer several times per day Taking all her meds for allergy too Will add PM zyrtec and netti pot Using flonase Liver cirrhosis, decreased immunity in general Hx of old [place], HTN, cad, stable Type 2 DM, insulin, lantus bid and ozempic Her recent hba1c was 5.9 Decreased lantus to 30 bid last time Keep other med Diet PMH: Patient Active Problem List Diagnosis Gastroesophageal reflux disease without esophagitis S/P angioplasty with stent Dyslipidemia, goal LDL below 70 Hypothyroidism GONZALEZ (nonalcoholic steatohepatitis) Bipolar I disorder, most recent episode depressed, moderate (HCC) HTN, goal below 130/80 MEDICATION USE AGREEMENT Qvokwbm-Rezog-Iofdj disease Anxiety Fatty liver Chronic liver disease and cirrhosis (HCC) Moderate aortic stenosis Diabetic gastroparesis (HCC) intermediate frame tender (current) use of insulin (HCC) Urge incontinence Type 2 diabetes mellitus with diabetic neuropathy, with long-term current use of insulin (HCC) Type 2 diabetes mellitus with stage 3a chronic kidney disease, with long-term current use of insulin (HCC) Coronary artery disease involving [place] coronary artery of [place] heart without angina pectoris Seasonal allergies 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) Medical home patient encounter Allergic rhinitis Chronic kidney disease, stage 3a (HCC) COPD, group B, by GOLD 2017 classification ([facility]) Suprapubic catheter (HCC) Recurrent UTI Pelvic pain Immunodeficiency (HCC) Old [place] (myocardial infarction) Current Outpatient Medications Medication Sig Dispense Refill [...] 1 Kit 0 Blood Glucose Monitoring Suppl ([employer] VERIO) w/Device KIT Use as directed. Use as directed. 1 Kit 0 Spacer/Aero-Holding Chambers WISAM Use with inhaler. Wheezing/bronchitis. 1 Device 0 Lancet Devices ([employer] DELICA LANCING DEV) MISC Use four times [...] a day, as directed 18 g 3 Budesonide-Formoterol Fumarate 160-4.5 MCG/ACT Inhalation Aerosol [...] [place] [facility] obtaining [facility] urine sample for 06/25/23. 1 Each [...] DAILY ASNEEDED FOR CONSTIPATION. 510 g 5 Nitroglycerin 0.4 MG Sublingual Tablet Sublingual (Nitrostat) Place 1 Tablet under the tongue every5 minutes as needed for Pain, Chest. Max dose 3 tablets in 15 minutes 25 Tablet 5 Vitamin D (Ergocalciferol) 1.25 MG (99900 UT) Oral Capsule (Drisdol) TAKE 1 CAPSULE BY MOUTH ONCE WEEKLY 12 Capsule 3 Insulin Glargine Solostar 100 UNIT/ML Subcutaneous Solution Pen-injector (Lantus SoloStar) Inject 35 units subcutaneously twice per day (Patient taking differently: Inject 30 units subcutaneously twice per day) 30 mL 11 ARIPiprazole 5 MG Oral Tablet (Abilify) Take 1 Tablet by mouth in the morning. Excedrin Migraine 250-250-65 MG Oral Tablet (Syfejes-Vgojosuevsidg-Ozfchhxf 250-250-65 mg per tab) Take 1 Tablet by mouth every 6 hours as needed. Acetaminophen 500 MG Oral Tablet (Tylenol) Take 1 Tablet by mouth every 6 hours as needed. guaiFENesin ER 600 MG Oral Tablet Extended Release 12 Hour (Mucinex) Take 1 Tablet by mouth in the morning and 1 Tablet before bedtime. Montelukast Sodium 10 MG Oral Tablet (Singulair) [...] use twice a day 200 Each 2 Ozempic (2 MG/DOSE) 8 MG/3ML Subcutaneous Solution Pen-injector (Semaglutide (2 MG/DOSE)) Inject 2 mg subcutaneous once per week 3 mL 5 Xifaxan 550 MG Oral Tablet (rifAXIMin) take 1 tablet by mouth twice daily 60 Tablet 5 Ondansetron HCl 8 MG Oral Tablet (Zofran) TAKE 1 TABLET BY MOUTH EVERY 8 HOURS NEEDED FOR LUUVAW02 Tablet 5 Pantoprazole Sodium 40 MG Oral Tablet Delayed Release (Protonix) TAKE 1 TABLET BY MOUTH TWICE DAILYevery morning and every evening 180 Tablet 1 Levothyroxine Sodium 88 MCG Oral Tablet (Levoxyl) TAKE 1 TABLET BY MOUTH ONCE DAILY AT LEAST 30 MINUTES BEFORE BREAKFAST AND OTHER MEDICATIONS 90 Tablet 1 OneTouch Verio In Vitro Strip (Glucose Blood) use to test blood sugar 3 times daily 300 Strip 3 Metoprolol Succinate ER 25 MG Oral Tablet Extended Release 24 Hour (toPROL XL) Take 1 tab by mouth twice per day 180 Tablet 3 Calcium Carbonate-Vitamin D 600-10 MG-MCG Oral Tablet Take 1 by mouth per day 90 Tablet 3 Torsemide 20 MG Oral Tablet (Demadex) TAKE 1 TABLET BY MOUTH EVERY MORNING - may take an additionaltablet if needed for swelling 90 Tablet 1 Venlafaxine HCl 100 MG Oral Tablet (Effexor) 1 Tablet. Gabapentin 300 MG Oral Capsule (Neurontin) TAKE 1 CAPSULE BY MOUTH TWICE DAILY 60 Capsule 5 oxyCODONE-Acetaminophen 5-325 MG Oral Tablet (Percocet) Take 1 Tablet by mouth every 8 hours as needed for Pain, Severe. 8 Tablet 0 Dicyclomine HCl 10 MG Oral Capsule (Bentyl) TAKE 1 CAPSULE BY MOUTH FOUR TIMES DAILY NEEDED for abdominal 120 Capsule 0 clonazePAM 0.5 MG Oral Tablet (KlonoPIN) TAKE ONE TABLET BY MOUTH THREE TIMES DAILY 90 Tablet 0 Nystatin 524083 UNIT/ML Mouth/Throat Suspension SWISH AND SWALLOW 5ML IN THE MORNING AND 5ML AT NOON AND 5 ML IN THE EVENING AND 5ML BEFORE BEDTIME, FOR THRUSH 240 mL 1 Ferrous Sulfate 325 (65 Fe) MG Oral Tablet Delayed Release Take 1 Tablet by mouth. traMADol HCl 50 MG Oral Tablet (Ultram) Take 1 Tablet by mouth every 6 hours as needed for Pain, Severe. 10 Tablet 0 oxyBUTYnin Chloride ER 15 MG Oral Tablet Extended Release 24 Hour (Ditropan XL) Take 1 Tablet by mouth in the morning. 90 Tablet 3 Cetirizine HCl 10 MG Oral Tablet (ZyrTEC) Take 1 Tablet by mouth in the morning. 90 Tablet 3 Azithromycin 250 MG Oral Tablet (Zithromax Z-Sanchez) Take two tablets by mouth on first day, then 1 tablet daily until gone 6 Tablet 0 [employer] Lancets 33G USE UP TO FOUR TIMES A DAY Dx:E11.4 360 Each 5 Nystatin 136471 UNIT/GM External Powder (Nystop) Apply topically to affected area 3 times a day. Apply to right breast until rash resolved. 30 g 0 Spironolactone 50 MG Oral Tablet (Aldactone) TAKE ONE TABLET BY MOUTH IN THE MORNING AND ONE TABLETBEFORE BEDTIME (Patient not taking: Reported on 05/13/2024) 180 Tablet 1 Cefdinir 300 MG Oral Capsule (Omnicef) Take 1 Capsule by mouth in the morning and 1 Capsule before bedtime. Do all this for 10 days. (Patient not taking: Reported on 05/13/2024) 20 Capsule 0 predniSONE 10 MG Oral Tablet (Deltasone) Take 5 tabs for 2 days, 4 tabs for 2 days, 3 tabs for 2 days, 2 tabs for 2 days 1 tab for 2 days (Patient not taking: Reported on 05/13/2024) 30 Tablet 0 No current facility-administered medications for this visit. Past Medical History: Diagnosis Date ASCVD (arteriosclerotic cardiovascular disease) Bipolar 1 disorder (HCC) Sees Dr. Cooper Vpxqywv-Bdbdt-Tawui disease Bilateral lower legs - pt is extremely weak - minimal wt bearing tolerated Chronic coronary artery disease CHRONIC UTI (Klebsiella) 02/04/2005 referred to Urology. Diabetic gastroparesis (HCC) 04/28/2019 DM type 2, goal A1c below 7 05/04/2004 diet controlled, 03/07/05 hgba1c 5.4 Dyslipidemia, goal LDL below 160 HTN, goal to be determined Hypothyroidism Morbid obesity, BMI not known ([facility]) 05/25/[address] Portillo 04/10. GONZALEZ (nonalcoholic steatohepatitis) OCD (obsessive compulsive disorder) Sees Dr. Cooper Pelvic pain 03/27/2021 Phlebitis and thrombophlebitis PONV (postoperative nausea and vomiting) Recurrent UTI 10/07/2021 Seasonal allergies 11/15/2021 Past Surgical History: Procedure Laterality Date ANESTHESIA, HEART CATHETERIZATION 06/04/12 at [facility] ARTHROPLASTY KNEE TOTAL right BLADDER ASPIRATION BY SUPRAPUBIC CATH N/A 04/08/2024 ASPIRATION OF BLADDER BY INSERTION OF SUPRAPUBIC CATHETER performed by Alfreod Panda MD atOR [facility] CABG, ARTERIAL, SINGLE 02/15/2011 CORONARY ARTERY BYPASS GRAFT USING ARTERY 1 GRAFT performed by TIERNEY GUERRERO at OR [facility] CATHETERIZE LEFT HEART THRU SKIN 04/11/2009 LEFT HEART CATH, PERCUTANEOUS performed by GINGER FISHER at [facility] CATHETERIZE LEFT HEART THRU SKIN 02/01/2010 LEFT HEART CATH, PERCUTANEOUS performed by ALTHEA KWON at [facility] CATHETERIZE LEFT HEART THRU SKIN 04/03/2010 LEFT HEART CATH, PERCUTANEOUS performed by GARCIA SOSA at [facility] COLONOSCOPY, DIAGNOSTIC (RECTUM) 05/20/2014 normal, repeat 10 yrs/done @ [facility] CORONARY ANGIOGRAPHY W/LEFT HEART CATH 10/29/2010 CORONARY ANGIOGRAPHY W/LEFT HEART CATH performed by ANNIE SEVILLA at [facility] CYSTOSCOPY N/A 04/08/2024 CYSTOURETHROSCOPY performed by Alfredo Panda MD at OR [facility] EGD, FLEXIBLE, DIAGNOSTIC 12/05/2017 portal hypertensive gastropathy/[facility] EGD, FLEXIBLE, DIAGNOSTIC 10/25/2022 retained food / ESOPHAGOGASTRODUODENOSCOPY (EGD), FLEXIBLE, TRANSORAL, DIAGNOSTIC performed by Raghavendra Medrano MD at ENDOSCOPY [facility] EGD, W/ENDOSCOPIC US 06/26/2011 UPPER GI ENDOSCOPY ENDOSCOPIC ULTRASOUND performed by RACHEL BAHENA at ENDOSCOPY [facility] INFORMATION 2021 L hip surgery. partial hip INFORMATION Left 2022 femur fx - hardware OTHER nerve biopsy right calf REMOVAL OF APPENDIX REMOVE ADDED SPINE LAMINA, 1 SEG 07/2007 Dr. Saleem L4-L5 REMOVE GALLBLADDER SURGICAL DRAINAGE OF BLADDER N/A 12/31/2023 CYSTOSTOMY WITH DRAINAGE OF BLADDER performed by Alfredo Panda MD at OR [facility] TOTAL ABD HYSTERECTOMY W/WO REMOVAL OF TUBE(S) Review of patient's allergies indicates: Allergen Reactions Methocarbamol Other reaction(s): Delirium Darvon [Propoxyphene Hcl] Rash Fentanyl Diarrhea anxiety Robaxin [Methocarbamol] Zolpidem Other reaction(s): Confusion Family History Problem Relation Name Age of Onset Heart Disorder Mother angina Heart Disorder Father [place] @ 50's No Known Problems Brother Heart disease Brother Alcohol and Other Disorders Associated Brother Alcoholism Family Status Relation Status Mo alzhiemers Fa CAD, cancer Jak Alive DVT Jak Alive lupus Bro Alive Bro ETOH, heart disease Social History Socioeconomic History Marital status: Spouse name: Not on file Number of children: 2 Years of education: Not on file Highest education level: Not on file Occupational History Occupation: DISABLED Tobacco Use Smoking status: Never Passive exposure: Past Smokeless tobacco: Never Tobacco comments: Parents and then smoked Vaping Use Vaping status: Never Used Substance and Sexual Activity Alcohol use: No Drug use: No Sexual activity: Never Other Topics Concern Service No Blood Transfusions Yes Caffeine Concern No Comment: one cup of coffee daily Occupational Exposure Not Asked Hobby Hazards Not Asked Sleep Concern Yes Stress Concern Yes Weight Concern Yes Special Diet Yes Comment: diabetic diet Back Care No Exercise No Bike Helmet Not Asked Seat Belt Yes Self-Exams Not Asked Social History Narrative 1 dog in her home. No mold. ; 3 children, 1 adopted; disabled. No children in the are any more. Social Determinants of Health Financial Resource Strain: Low Risk (01/20/2024) Financial Resource Strain Do you have any trouble paying for your medications, or do you think you might in the future? (Adult - for ages 18 years and over): No Does your family have trouble paying for medicine? (Household - for ages 0-17 years): Not on file Food Insecurity: No Food Insecurity (01/20/2024) Food Insecurity Do you need food for this week? (Adult - for ages 18 years and over): No Are you able to get enough food for your family? (Household - for ages 0-17 years): Not on file Does your family need food this week? (Household - for ages 0-17 years): Not on file Do you always have enough food for your family? (Household - for ages 0-17 years): Not on file Recent Concern: Food Insecurity - Food Insecurity Present (11/24/2023) Hunger Vital Sign Worried About Running Out of Food in the Last Year: Sometimes true Ran Out of Food in the Last Year: Sometimes true Transportation Needs: No Transportation Needs (01/20/2024) Transportation Needs Do you have trouble getting a ride to medical visits or work? (Adult - for ages 18 years and over):Never True Does your family have a hard time getting a ride to doctors visits? (Household - for ages 0-17 years): Not on file Has lack of transportation kept you from medical appointments, meetings, work, or from getting things needed for daily living? Check all that apply. (Adult - for ages 18 years and over): No Do you (or your family) have trouble finding or paying for a ride (transportation)? (Household - for ages 0-17 years): Not on file Social Connections: Socially Integrated (01/20/2024) Social Connections How often do you feel lonely or isolated from those around you? (Adult - for ages 18 years and over): Never Housing Stability: Low Risk (01/20/2024) Housing Stability Do you currently live in a residential or have no steady place to sleep at night? (Adult - for ages 18 years and over): No Do you think you are at risk of becoming homeless? (Adult - for ages 18 years and over): No Does your family worry about paying for your home or becoming homeless? (Household - for ages 0-17 years): Not on file Are you homeless or worried that you might be in the future? (Adult - for ages 18 years and over): No Are you (or your family) homeless or worried that you might be in the future? (Household - for ages0-17 years): Not on file Review of Systems Constitutional: Positive for fatigue. Negative for activity change, appetite change, chills, diaphoresis, fever and unexpected weight change. HENT: Positive for congestion, postnasal drip and rhinorrhea. Negative for ear pain, sinus pressureand sinus pain. Respiratory: Positive for cough. Negative for chest tightness, shortness of breath and wheezing. Cardiovascular: Negative for chest pain and palpitations. Gastrointestinal: Negative for abdominal distention and abdominal pain. Musculoskeletal: Positive for arthralgias and gait problem. Allergic/Immunologic: Positive for environmental allergies and immunocompromised state. Neurological: Positive for weakness (general , legs). Negative for headaches. Psychiatric/Behavioral: Positive for sleep disturbance (cough). Negative for agitation and behavioral problems. Objective BP 118/74 | Pulse 65 | Temp 36.2 C (97.1 F) (Temporal Artery) | Resp 18 | SpO2 96% Physical Exam Constitutional: General: She is not in acute distress. Appearance: Normal appearance. She is not ill-appearing, toxic-appearing or diaphoretic. HENT: Head: Normocephalic and atraumatic. Nose: Congestion present. Eyes: Extraocular Movements: Extraocular movements intact. Cardiovascular: Rate and Rhythm: Normal rate and regular rhythm. Pulses: Normal pulses. Heart sounds: Normal heart sounds. Pulmonary: Effort: Pulmonary effort is normal. No respiratory distress. Breath sounds: No stridor. Rhonchi (mild wtih cough) present. No wheezing or rales. Chest: Chest wall: No tenderness. Neurological: General: No focal deficit present. Mental Status: She is alert and oriented to person, place, and time. Psychiatric: Behavior: Behavior normal. ASSESSMENT/PLAN: COPD, group B, by GOLD 2017 classification ([facility]) (Primary) Allergic rhinitis, unspecified seasonality, unspecified trigger Immunodeficiency (HCC) Old MN (myocardial infarction) Type 2 diabetes mellitus with stage 3a chronic kidney disease, with long-term current use of insulin (HCC) Chronic liver disease and cirrhosis (HCC) Other orders - Cetirizine HCl 10 MG Oral Tablet (ZyrTEC); Take 1 Tablet by mouth in the morning. - Azithromycin 250 MG Oral Tablet (Zithromax Z-Sanchez); Take two tablets by mouth on first day, then 1tablet daily until gone Patient Instructions Continue singulair 10 mg AM daily + zyrtec 10 mg PM daily And trial netti pot or saline spray to clean up sinus and then use flonase daily Consider air purifier And continue all the chest exercise Cont inhaler Jaclyn Landa MD documented in this encounter Nursing Notes * Reyna Hansen LPN - 05/13/2024 6:23 PM EST The patient has been properly identified by confirmation of name and date of . Chief Complaint Patient presents with Hospital Follow-Up Patient is here for a hospital follow up from [facility] 04/20-04/24 for altered mental status. Patient would like another dose of Cefdinir if appropriate because she is still coughing and not feeling quite well. documented in this encounter Plan of Treatment Upcoming Encounters Date Type Department Care Team (Late st Contact Info) Description 05/19/2024 10:00 AM EST Home Visit [facility] at [place], [facility] [address] [address] [address] Al Doyle, KAT [address] [place] [address] 05/24/2024 3:40 PM EST Office Visit Nephrology, [address] [place] [address] Maurilio Smith MD [address] [place] [address] [place] [address] 05/27/2024 10:30 AM EST Scheduled Telephone [facility], [facility] [address] [facility] [place] [address] Jesusita Sanez, KELLYN [address] [facility] [place] [address] 06/08/2024 6:00 PM EST Office Visit Family Practice, [facility] [address] [facility] [address] Brian Dom[facility]nguez MD [address] [facility] [address] 06/23/2024 11:45 AM EST Office Visit Urology, [facility] 132 [facility] [place] [address] Alfredo Panda MD 27 [facility] [place] [address] Scheduled Procedures Name Priority Associated Diagnoses Date/Ti [...] Additional history exists CKD PHOS USE SMARTSET 37827 10/24/202310/05, 02/18/2022, 02/17/2022, Additional history exists COVID-19 [...] COPD 04/08/2025 04/08/2024 CKD HGB USE SMARTSET 30016 04/29/202504/29, 04/29/2024, 02/19/2024, Additional history exists DTap/Tdap [...] this encounter Medical Devices Implanted Type Area Duct Cleaner Device Identifier Shelf Expiration Date Model / Serial / Lot Sut Steel 6 M654g - [id number] Implanted:Qty: 3 on 02/15/2011 at OR [facility] N/A: Chest DO NOT USE 01/15/2015 M654G / / [id number] Gaston Fuentesham 225-440 - [id number] Implanted:Qty: 1 on 02/15/2011 at OR [facility] N/A: Chest [employer] 225-718 / / [id number] Sut Steel 6 M654g - [id number] Implanted:Qty: 1 on 02/15/2011 at OR [facility] N/A: Chest DO NOT USE 07/21/2015 M654G / / [id number] documented as of this encounter Visit Diagnoses Diagnosis COPD, group B, by GOLD 2017 classification (HCC)- Primary Allergic rhinitis, unspecified seasonality, unspecified trigger Immunodeficiency (HCC) Unspecified immunity deficiency Old [place] (myocardial infarction) Old myocardial infarction Type 2 diabetes mellitus with stage 3a chronic kidney disease, with long-term current use of insulin (HCC) Chronic liver disease and cirrhosis (HCC) Unspecified chronic liver disease without mention of alcohol documented in this encounter Advance Directives Documents on File Type Date Recorded Patient Web Communications Specialist Expl anation POLST 05/06/2018 POLST * [...] Healthcare Agent [facility] p Candie Ballard Adult Child Health Care Agent Care Teams Appliance Fixer Relationship Specialty Start Date End Date Brian Domínguez MD [address] [place] [id number] PCP - General Family Medicine 07/16/17 documented as of this encounter
--- OUTSIDE RECORDS SUMMARY | 2024-05-24 16:55 | External Medical Summary | Summary of Care ---
Author Name Unknown Organization [facility] Address [address] [facility] [address] Phone [phone] Care Team Providers Care Sap Gatherer Name Role Phone Brian Domínguez MD Primary Care Provider [phone]- [phone] Reason for Visit * Reason Onset Date Comments [facility]: Maintenance 05/11/2024 Encounter Details Date Type Department Care Team (Late st Contact Info) Description 05/11/2024 Telephone [facility], [facility] [address] [facility] [place] [address] [place] LakeJudy christopher RN [address] [facility] [place]oto [address] [facility]: Maintenance Allergies Active Allergy Reactions Criticality Noted Date Comments Propoxyphene Hcl Rash Low 10/29/2010 Fentanyl Diarrhea Low 04/26/2010 anxiety Methocarbamol Medium 10/05/2020 Other reaction(s): Delirium Methocarbamol Low 04/15/2007 Zolpidem Low 10/05/2020 Other reaction(s): Confusion documented as of this encounter (statuses as of 05/11/2024) Medications Medication Sig Dispensed Refills Start Date End Date Status venlafaxine XR (EFFEXOR XR) 150 MG [id number]:Dep ression Take 1 Cap by mouth daily. [...] Kit 11/18/2017 Active Blood Glucose Monitoring Suppl (TakWakUCH VERIO) w/Device KIT Use as directed. Use as directed. 1 Kit 10/31/2018 Active Spacer/Aero-Holding Chambers WISAM Use with inhaler. Wheezing/bronchitis . 1 Device 04/08/2019 Active Lancet Devices (CampaignerCRMTOUCH DELICA LANCING DEV) MISC Use four times [...] minutes 25 Tablet 5 10/16/2023 Active Nystatin 339393 UNIT/GM External Powder (Nystop)Indications :Candidal intertrigo Apply topically to affected area 3 times a day. Apply to right breast until rash resolved. 30 g 10/16/2023 Active Vitamin D (Ergocalciferol) 1.25 MG (50490 UT) Oral Capsule (Drisdol)Indication s:Vitamin D deficiency TAKE 1 CAPSULE BY MOUTH ONCE WEEKLY 12 Capsule 3 11/10/2023 Active Insulin Glargine Solostar 100 UNIT/ML Subcutaneous Solution Pen-injector (Lantus SoloStar)Indication s:Type 2 diabetes mellitus with stage 3a chronic kidney disease, with long-term current use of insulin (HCC) Inject 35 units subcutaneously twice per day 30 mL 11/18/2023 Active Additional Information Patient taking differently: [...] mg subcutaneous once per week 3 mL 01/01/2024 Active Xifaxan 550 MG Oral Tablet [...] OTHER MEDICATIONS 90 Tablet 1 03/11/2024 Active OneTouch Verio In Vitro Strip (Glucose [...] BEFORE BEDTIME 180 Tablet 1 03/31/2024 Active Additional Information Patient not taking.Reported on 04/27/2024 Torsemide 20 MG Oral Tablet (Demadex)Indication s:Atherosclerotic heart disease of [place] coronary artery with other forms of angina [...] TIMES DAILY 90 Tablet 04/26/2024 Active Nystatin 954425 UNIT/ML Mouth/Throat Suspension SWISH AND SWALLOW 5ML [...] days. 20 Capsule 05/05/2024 05/15/20 24 Active predniSONE 10 MG Oral Tablet (Deltasone)Indicati ons:Pneumonia due to infectious organism, unspecified laterality, unspecified part of lung Take 5 tabs for 2 days, 4 tabs for 2 days, 3 tabs for 2 days, 2 tabs for 2 days 1 tab for 2 days 30 Tablet 05/05/2024 Active documented as of this encounter (statuses as of 05/11/2024) Active Problems Problem Noted Date Diagnosed Date [...] encounter 01/06/2023 Coronary artery disease invo lving [place] coronary artery of [place] heart without angina pectoris 11/15/2021 Last Assessment [...] at goal, continue same Urge incontinence 03/27/2021 skilled nursing (current) use [...] 05/04/2004 Overview: Updated due to amp error Rvmqiuu-Blxoh-Gxqgy disease 12/31/2002 Last Assessment & Plan: Frequent falls Home PT and OT continue GONZALEZ (nonalcoholic steatohepatitis) documented as of this encounter (statuses as of 05/11/2024) Resolved Problems Problem Noted Date Diagnosed Date [...] giving this. 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 dairy sanitation and ID Acute cystitis without hematuria 03/27/2021 07/08/2022 Pelvic pain 03/27/2021 02/03/2024 Type 2 diabetes mellitus wit h diabetic neuropathy 09/07/2018 11/07/2023 Overview: duplicate Mild protein-calorie malnutrition 05/07/2018 04/29/2019 Diabetes mellitus with neuropathy 05/06/2018 09/07/2018 Other cirrhosis of liver 05/06/2018 Atherosclerotic heart diseas e of [place] coronary artery with other forms of angina [...] stenosis 10/31/2010 08/28/2018 Acute coronary syndrome 10/30/201001/04 VENETIA Research Other*[id number] 02/02/2010 04/18/2014 Overview: [facility] Registry, Dr Joel [...] as of this encounter (statuses as of 05/11/2024) Immunizations Name Administration Dates Next Due COVID-19 [...] Telephone Encounter - Judy Montoya RN - 05/11/2024 10:15 AM EST Received call from pt who states that she is returning a call to Tona. Teams message to Tona who states that she rescheduled her appt. Notified pt that she is not being seen today by her RNMASOOD Melendez, that appt was rescheduled for 05/19 10 am. The pt states that she will not be home that day at 10am as she has an appt to drop her car off forrepairs at 10am. She states she can be seen by Al afterwards. Will send message to Isabelle FLORES and also added to the pt's appt desk note for that day. Judy FRIEDMAN, RN [facility] Intake Nurse Navigator Triage documented in this encounter Plan of Treatment Upcoming Encounters Date Type Department Care Team (Late st Contact Info) Description 05/13/2024 6:20 PM EST Office Visit [facility] [address] [place] [phone] Marcelle Landa MD [address] [place] [address] 05/19/2024 10:00 AM EST [facility], [facility] 132 [facility] [place] [address] Al Doyle, KAT 132 [facility] [address] 05/24/2024 3:40 PM EST Office Visit Nephrology, [address] [place] [address] Maurilio Smith MD [address] [place] [address] [place] [address] 05/27/2024 10:30 AM EST Scheduled Telephone [facility], [facility] [address] [facility] [place] [address] Jesusita Saenz RDN [address] [facility] [place] [address] 06/08/2024 6:00 PM EST Office Visit [address] [place] [address] Brian Domínguez MD [address] [facility] [place] [address] 06/23/2024 11:45 AM EST Office Visit Urology, [facility] [address] [place] [address] Alfredo Panda MD [address] [place] [address] Scheduled Procedures Name Priority Associated Diagnoses Date/Ti [...] Additional history exists CKD PHOS USE SMARTSET 29139 10/24/202310/05, 02/18/2022, 02/17/2022, Additional history exists COVID-19 [...] COPD 04/08/2025 04/08/2024 CKD HGB USE SMARTSET 32858 04/29/202504/29, 04/29/2024, 02/19/2024, Additional history exists DTap/Tdap [...] encounter Medical Devices Implanted Type Area Manager Semiconductor Device Identifier Shelf Expiration Date Model / Serial / Lot Sut Steel 6 M654g - [id number] Implanted:Qty: 3 on 02/15/2011 at OR [facility] N/A: Chest DO NOT USE 01/15/2015 M654G / / [id number] Band Magdy 225-241 - [id number] Implanted:Qty: 1 on 02/15/2011 at OR [facility] N/A: Chest [employer] 225-241 / / [id number] Sut Steel 6 M654g - [id number] Implanted:Qty: 1 on 02/15/2011 at OR [facility] N/A: Chest DO NOT USE 07/21/2015 M654G / / [id number] documented as of this encounter Advance Directives Documents on File Type Date Recorded Patient Supervisor Ditching Expl anation POLST 05/06/2018 POLST * Full [...] Child Health Care Agent Care Teams Sap Gatherer Relationship Specialty Start Date End Date Brian Domínguez MD [address] [place] [address] PCP - General Family Medicine 07/16/17 documented as of this encounter
--- OUTSIDE RECORDS SUMMARY | 2024-05-24 16:55 | External Medical Summary | Summary of Care ---
Author Name Unknown Organization [facility] Address [address] [place] [address] Phone [phone] Care Team Providers Care Maintenance Mechanic Millwright Name Role Phone Brian Domínguez MD Primary Care Provider [phone]- [phone] Reason for Visit * Reason Onset Date Comments [facility]: Engagement 05/11/2024 Encounter Details Date Type Department Care Team (Late st Contact Info) Description 05/11/2024 Telephone [facility], [facility] [address] [place] [address] Tona Lizama, DENG [address] [place] [address] [facility]: Engagement Allergies Active Allergy Reactions Criticality Noted Date Comments Propoxyphene Hcl Rash Low 10/29/2010 Fentanyl Diarrhea Low 04/26/2010 anxiety Methocarbamol Medium 10/05/2020 Other reaction(s): Delirium Methocarbamol Low 04/15/2007 Zolpidem Low 10/05/2020 Other reaction(s): Confusion documented as of this encounter (statuses as of 05/11/2024) Medications Medication Sig Dispensed Refills Start Date End Date Status venlafaxine XR (EFFEXOR XR) 150 MG [id number]:Dep ression Take 1 Cap by mouth daily. [...] Kit 11/18/2017 Active Blood Glucose Monitoring Suppl (TearSolutionsUCH VERIO) w/Device KIT Use as directed. Use as directed. 1 Kit 10/31/2018 Active Spacer/Aero-Holding Chambers WISAM Use with inhaler. Wheezing/bronchitis . 1 Device 04/08/2019 Active Lancet Devices (CISSOIDTOUCH DELICA LANCING DEV) MISC Use four times [...] minutes 25 Tablet 5 10/16/2023 Active Nystatin 189358 UNIT/GM External Powder (Nystop)Indications :Candidal intertrigo Apply topically to affected area 3 times a day. Apply to right breast until rash resolved. 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 Pt also to see uro-lining caser and ID Acute cystitis without hematuria 03/27/2021 07/08/2022 Pelvic pain 03/27/2021 02/03/2024 Type 2 diabetes mellitus wit h diabetic neuropathy 09/07/2018 11/07/2023 Overview: duplicate Mild protein-calorie malnutrition 05/07/2018 04/29/2019 Diabetes mellitus with neuropathy 05/06/2018 09/07/2018 Other cirrhosis of liver 05/06/2018 Atherosclerotic heart diseas e of [place] coronary artery with other forms of angina [...] stenosis 10/31/2010 08/28/2018 Acute coronary syndrome 10/30/201001/04 GARY Research Other*[id number] 02/02/2010 04/18/2014 Overview: [place] Registry, Dr Joel [...] Miscellaneous Notes * Telephone Encounter - Tona Lizama OSA - 05/11/2024 10:06 AM EST Per Request reschedule appt... Called lmom to confirm if 05/19 at 10:00am is a good date and time. documented in this encounter Plan of Treatment Upcoming Encounters Date Type Department Care Team (Late st Contact Info) Description 05/13/2024 6:20 PM EST Office Visit [facility] [address] [facility] [phone] Marcelle Landa MD [address] [facility] [place] [address] 05/19/2024 10:00 AM EST Home Visit [facility], [facility] 132 [facility] [place] [address] Al Doyle, KAT 132 [facility] [place] [address] 05/24/2024 3:40 PM EST Office Visit Nephrology, [address] [place] [address] Maurilio Smith MD [address] [place] [address] 05/27/2024 10:30 AM EST Scheduled Telephone [facility], [facility] [address] [facility] [place] [address] Jesusita Saenz, RDN [address] [facility] [place] [address] 06/08/2024 6:00 PM EST Office Visit [facility] [address] [facility] [address] Brian Domínguez MD [address] [facility] [place] [address] 06/23/2024 11:45 AM EST Office Visit Urology, [facility] 132 [facility] [place] [address] Alfredo Panda MD [address] [place] [address] Scheduled Procedures Name Priority Associated Diagnoses Date/Ti [...] Additional history exists CKD PHOS USE SMARTSET 98178 10/24/202310/05, 02/18/2022, 02/17/2022, Additional history exists COVID-19 [...] COPD 04/08/2025 04/08/2024 CKD HGB USE SMARTSET 03448 04/29/202504/29, 04/29/2024, 02/19/2024, Additional history exists DTap/Tdap [...] this encounter Medical Devices Implanted Type Area Conflicts Analyst Device Identifier Shelf Expiration Date Model / Serial / Lot Sut Steel 6 M654g - [id number] Implanted:Qty: 3 on 02/15/2011 at OR [facility] N/A: Chest DO NOT USE 01/15/2015 M654G / / [id number] [facility] 225-241 - [id number] Implanted:Qty: 1 on 02/15/2011 at OR [facility] N/A: Chest [employer] 225-241 / / [id number] Sut Steel 6 M654g - [id number] Implanted:Qty: 1 on 02/15/2011 at OR [facility] N/A: Chest DO NOT USE 07/21/2015 M654G / / [id number] documented as of this encounter Advance Directives Documents on File Type Date Recorded Patient Application Software Developer Expl anation POL 05/06/2018 POLST * [...] Adult Child Health Care Agent Care Teams Maintenance Mechanic Millwright Relationship Specialty Start Date End Date Brian Domínguez MD [address] [place] [address] PCP - General Family Medicine 07/16/17 documented as of this encounter
--- OUTSIDE RECORDS SUMMARY | 2024-05-24 16:55 | External Medical Summary | Summary of Care ---
Author Name Unknown Organization [facility] Address [address] [place] [address] Phone [phone] Care Team Providers Care Precinct Captain Name Role Phone Brian Domínguez MD Primary Care Provider [phone]- [phone] Reason for Visit * Reason Onset Date Comments Home Health 02/11/2024 Encounter Details Date Type Department Care Team (Late st Contact Info) Description 02/11/2024 Telephone [facility] [address] [place] [address] Brian Domínguez MD [address] [place] [address] Home Health Allergies Active Allergy Reactions Criticality Noted Date Comments Propoxyphene Hcl Rash Low 10/29/2010 Fentanyl Diarrhea Low 04/26/2010 anxiety Methocarbamol Medium 10/05/2020 Other reaction(s): Delirium Methocarbamol Low 04/15/2007 Zolpidem Low 10/05/2020 Other reaction(s): Confusion documented as of this encounter (statuses as of 05/12/2024) Medications Medication Sig Dispensed Refills Start Date End Date Status venlafaxine XR (EFFEXOR XR) 150 MG [id number]:Dep ression Take 1 Cap by mouth daily. [...] Kit 11/18/2017 Active Blood Glucose Monitoring Suppl (Specialized TechTOUCH VERIO) w/Device KIT Use as directed. Use [...] minutes 25 Tablet 5 10/16/2023 Active Nystatin 128369 UNIT/GM External Powder (Nystop)Indications :Candidal intertrigo Apply topically to affected area 3 times a day. Apply to right breast until rash resolved. 30 g 10/16/2023 Active Vitamin D (Ergocalciferol) 1.25 MG (71138 UT) Oral Capsule (Drisdol)Indication s:Vitamin D deficiency [...] as of this encounter (statuses as of 05/12/2024) Active Problems Problem Noted Date Diagnosed Date [...] encounter 01/06/2023 Coronary artery disease invo lving [place] [...] at goal, continue same Urge incontinence 03/27/2021 shelter (current) use of [...] 05/04/2004 Overview: Updated due to amp error Zslccxe-Pzcfm-Zfgyn disease 12/31/2002 Last Assessment & Plan: Frequent falls Home PT and OT continue GONZALEZ (nonalcoholic steatohepatitis) documented as of this encounter (statuses as of 05/12/2024) Resolved Problems Problem Noted Date Diagnosed Date [...] is giving this. Pt also to see uro-welder fitter apprentice and ID Acute cystitis without hematuria 03/27/2021 [...] stenosis 10/31/2010 08/28/2018 Acute coronary syndrome 10/30/201001/04 GROTON Research Other*[id number] 02/02/2010 04/18/2014 Overview: [place] Registry, Dr Joel Kwon PI Obesity, [...] as of this encounter (statuses as of 05/12/2024) Immunizations Name Administration Dates Next Due COVID-19 [...] Telephone Encounter - Reyna Melissa LPN - 02/11/2024 1:39 PM EDT Charlene from [facility] calling Pt request HH to change date to 02/11 instead of today 02/10. Verbal given to change start date. documented in this encounter Plan of Treatment Upcoming Encounters Date Type Department Care Team (Late st Contact Info) Description 05/13/2024 6:20 PM EST Office Visit [facility] [address] [place] [facility] [place] [address] Marcelle Landa MD [address] [place] [address] 05/19/2024 10:00 AM EST [facility] Visit [facility], [facility] [address] [facility] [address] Al Doyle, RN 132 [place] [address] 05/24/2024 3:40 PM EST Office Visit Nephrology, [address] [place] [address] Maurilio Smith MD [address] [place] [address] [place] [address] 05/27/2024 10:30 AM EST Scheduled Telephone [facility], [facility] [address] [facility] [place] [address] Jesusita Saenz RDN [address] [facility] [place] [address] 06/08/2024 6:00 PM EST Office Visit Family Practice, [facility] 226 [facility] [place] [address] Brian Domínguez MD [address] [facility] [place] [address] 06/23/2024 11:45 AM EST Office Visit Urology, [facility] 132 [facility] [place] [address] Alfredo Panda MD 27 [facility] [place] [address] Scheduled Procedures Name Priority Associated Diagnoses Date/Ti [...] Additional history exists CKD PHOS USE SMARTSET 25073 10/24/202310/05, 02/18/2022, 02/17/2022, Additional history exists COVID-19 [...] COPD 04/08/2025 04/08/2024 CKD HGB USE SMARTSET 09038 04/29/202504/29, 04/29/2024, 02/19/2024, Additional history exists DTap/Tdap [...] this encounter Medical Devices Implanted Type Area Grey Iron Molder Device Identifier Shelf Expiration Date Model / Serial / Lot Sut Bob 6 M654g - [id number] Implanted:Qty: 3 on 02/15/2011 at OR [facility] N/A: Chest DO NOT USE 01/15/2015 M654G / / [id number] [facility] 225-241 - [id number] Implanted:Qty: 1 on 02/15/2011 at OR [facility] N/A: Chest [employer] 225-241 / / [id number] Sut Steel 6 M654g - [id number] Implanted:Qty: 1 on 02/15/2011 at OR [facility] N/A: Chest DO NOT USE 07/21/2015 M654G / / [id number] documented as of this encounter Advance Directives Documents on File Type Date Recorded Patient Supervisor Mechanic Boilermaking Jose edwardion POL 05/06/2018 POLST * Full Code (Latest [...] Relationship Healthcare Agent [facility] Communication Carolyn Ballard Adult Child Health Care Agent Care Teams Precinct Captain Relationship Specialty Start Date End Date Brian Domínguez MD [address] [place] [address] PCP - General Family Medicine 07/16/17 documented as of this encounter
--- OUTSIDE RECORDS SUMMARY | 2024-05-24 16:56 | External Medical Summary | Summary of Care ---
Author Name Unknown Organization [facility] Address [address] [place] [address] Phone [phone] Care Team Providers Care Quality Assurance Calibrator Name Role Phone Brian Domínguez MD Primary Care Provider [phone]- [phone] Reason for Visit * Reason Onset Date Comments Appointment 05/05/2024 No Better 05/05/2024 Med Request 05/05/2024 Encounter Details Date Type Department Care Team (Late st Contact Info) Description 05/05/2024 Telephone Access Center, [place] [address] [facility] *DO NOT REMOVE THIS DEPARTMENT* [place] [address] Services, Scheduling [address] [place] [address] Appointment; No Better; Med Request Allergies Active Allergy Reactions Criticality Noted Date Comments Propoxyphene Hcl Rash Low 10/29/2010 Fentanyl Diarrhea Low 04/26/2010 anxiety Methocarbamol Medium 10/05/2020 Other reaction(s): Delirium Methocarbamol Low 04/15/2007 Zolpidem Low 10/05/2020 Other reaction(s): Confusion documented as of this encounter (statuses as of 05/06/2024) Medications Medication Sig Dispensed Refills Start Date End Date Status venlafaxine XR (EFFEXOR XR) 150 MG [id number]:Dep ression Take 1 Cap by mouth daily. [...] Kit 11/18/2017 Active Blood Glucose Monitoring Suppl ([employer] VERIO) w/Device KIT Use as directed. Use as directed. 1 Kit 10/31/2018 Active Spacer/Aero-Holding Chambers WISAM Use with inhaler. Wheezing/bronchitis . 1 Device 04/08/2019 Active Lancet Devices (Graph AlchemistTOUCH DELICA LANCING DEV) MISC Use four times [...] minutes 25 Tablet 5 10/16/2023 Active Nystatin 823425 UNIT/GM External Powder (Nystop)Indications :Candidal intertrigo Apply topically to affected area 3 times a day. Apply to right breast until rash resolved. 30 g 10/16/2023 Active Vitamin D (Ergocalciferol) 1.25 MG (91358 UT) Oral Capsule (Drisdol)Indication s:Vitamin D deficiency [...] Oral Tablet (Demadex)Indication s:Atherosclerotic heart disease of [place] coronary artery with other forms of angina [...] TIMES DAILY 90 Tablet 04/26/2024 Active Nystatin 141990 UNIT/ML Mouth/Throat Suspension SWISH AND SWALLOW 5ML [...] as of this encounter (statuses as of 05/06/2024) Active Problems Problem Noted Date Diagnosed Date [...] encounter 01/06/2023 Coronary artery disease invo lving [place] coronary artery of [place] heart without angina pectoris 11/15/2021 Last Assessment [...] at goal, continue same Urge incontinence 03/27/2021 retirement (current) use of [...] 05/04/2004 Overview: Updated due to amp error Xzjspho-Pmvmn-Czknz disease 12/31/2002 Last Assessment & Plan: Frequent falls Home PT and OT continue GONZALEZ (nonalcoholic steatohepatitis) documented as of this encounter (statuses as of 05/06/2024) Resolved Problems Problem Noted Date Diagnosed Date [...] is giving this. Pt also to see uro-residential tech and ID Acute cystitis without hematuria 03/27/2021 07/08/2022 Pelvic pain 03/27/2021 02/03/2024 Type 2 diabetes mellitus wit h diabetic neuropathy 09/07/2018 11/07/2023 Overview: duplicate Mild protein-calorie malnutrition 05/07/2018 04/29/2019 Diabetes mellitus with neuropathy 05/06/2018 09/07/2018 Other cirrhosis of liver 05/06/2018 Atherosclerotic heart diseas e of [place] coronary artery with other forms of angina [...] 08/28/2018 Acute coronary syndrome 10/30/201001/04 PERNELL Anaid Other*[id number] 02/02/2010 04/18/2014 Overview: [place] [facility], Dr Joel CASAS Obesity, morbid (more [...] as of this encounter (statuses as of 05/06/2024) Immunizations Name Administration Dates Next Due COVID-19 [...] encounter Miscellaneous Notes * Telephone Encounter - Paul Joseph OSA - 05/06/2024 10:27 AM EDT Pt's daughter called in stating that the [facility] pharmacy on [facility] never received a fax about the Cefdinir 300 MG Oral Capsule and predniSONE 10 MG Oral Tablet. * Telephone Encounter - Chapis Branch OSA - 05/06/2024 9:32 AM EDT Relayed message to daughter. Scheduled appointments to be seen for symptoms. * Telephone Encounter - Amberly Cherry LPN - 05/05/2024 2:00 PM EDT Attempted to call patient, no answer lm to call back in regards to worsening cough. Please assist patient in scheduling an appointment for soonest appointment and inform her of the information from Dr. Domínguez! * Telephone Encounter - Brian Domínguez MD - 05/05/2024 1:42 PM EDT She needs seen. Please give next available. Can start pred and cefdinir - sent to pharm - but his is not to replace an ov. Still should be seen. Would also suggest cxr - ordered ED if worsening despite treatment * Telephone Encounter - Linda Camilo OSA - 05/05/2024 12:39 PM EDT Patients daughter is requesting antibiotic and steroid see messages below was mentioned at visit ifpatient is no better cough is worsening see below * Telephone Encounter - Linda Camilo OSA - 05/05/2024 12:33 PM EDT Error * Telephone Encounter - Gissell Friedman OSA - 05/05/2024 10:41 AM EDT Reason for patient's call: "gunk" in chest Caller was transferred to no answer at the nurse line. * Telephone Encounter - Gissell Friedman OSA - 05/05/2024 10:41 AM EDT Patient calling in to check on the status of previous message. Patient Called within 48 hour timeframe. Reminded patient of 48 hour turn-around time. * Telephone Encounter - Desiree Ann OSA - 05/05/2024 8:33 AM EDT 1. When were you seen for this problem? 04/29/24 2. What provider did you see for this problem? Dr. Nik Landa 3. What medications are you presently taking? Currently not taking anything for this concern 4. What is it that is no better? Please refer to Call Details. documented in this encounter Plan of Treatment Upcoming Encounters Date Type Department Care Team (Late st Contact Info) Description 05/11/2024 4:00 PM EST Home Visit [facility] [address] [facility] [place] [address] Al Doyle, KAT [address] [facility] [place] [address] 05/13/2024 6:20 PM EST Office Visit [facility] [address] [facility] [phone] Marcelle Landa MD [address] [place] [address] 05/24/2024 3:40 PM EST Office Visit Nephrology, [address] [place] [address] Maurilio Smith MD [address] [place] [address] [place] [address] 05/27/2024 10:30 AM EST Scheduled Telephone [facility], [facility] [address] [facility] [place] [address] Jesusita Saenz, RDN [address] [facility] [place] [address] 06/08/2024 6:00 PM EST Office Visit Family Practice, [place] [address] [place] [phone] Brian Domínguez MD [address] [place] [address] 06/23/2024 11:45 AM EST Office Visit Urology, [facility] 132 [facility] [place] [address] Alfredo Panda MD [address] [facility] [place] [address] Scheduled Orders Name Type Priority Associated Diagnoses Orde r Schedule XR CHEST 2 VIEWS Medical Imaging Routine Pneumonia due to infectious organism, unspecified laterality, unspecified part of lung Expected: 05/05/2024, Expires: 06/05/2025 Scheduled Procedures Name Priority Associated Diagnoses Date/Ti [...] Additional history exists CKD PHOS USE SMARTSET 30887 10/24/202310/05, 02/18/2022, 02/17/2022, Additional history exists COVID-19 [...] COPD 04/08/2025 04/08/2024 CKD HGB USE SMARTSET 37927 04/29/202504/29, 04/29/2024, 02/19/2024, Additional history exists DTap/Tdap [...] this encounter Medical Devices Implanted Type Area Qlikview Developer Device Identifier Shelf Expiration Date Model / Serial / Lot Jenna Rojas 6 M654g - [id number] Implanted:Qty: 3 on 02/15/2011 at OR [facility] N/A: Chest DO NOT USE 01/15/2015 M654G / / [id number] Band Magdy 225-241 - [id number] Implanted:Qty: 1 on 02/15/2011 at OR [facility] N/A: Chest [employer] 225-241 / / [id number] Sut Steel 6 M654g - [id number] Implanted:Qty: 1 on 02/15/2011 at OR [facility] N/A: Chest DO NOT USE 07/21/2015 M654G / / [id number] documented as of this encounter Visit Diagnoses Diagnosis Pneumonia due to infectious organism, unspecified laterality, unspecified part of lung- Primary documented in this encounter Advance Directives Documents on File Type Date Recorded Patient Vehicle Upholsterer Expl anation POLST 05/06/2018 POLST * Full Code (Latest Code Status on File) Date Activated Date Inactivated Comments 04/08/2024 7:13 PM 04/09/2024 1:12 AM This order reflects the patients wishes and [...] [facility] p Communication Carolyn Ballard Adult Child Health Care Agent Care Teams Quality Assurance Calibrator Relationship Specialty Start Date End Date Brian Domínguez MD [address] [place] [address] PCP - General Family Medicine 07/16/17 documented as of this encounter
--- OUTSIDE RECORDS SUMMARY | 2024-05-24 16:56 | External Medical Summary | Summary of Care ---
Author Name Unknown Organization [facility] Address [address] [place] [address] Phone [phone] Care Team Providers Care Heel Cover Softener Name Role Phone Brian Domínguez MD Primary Care Provider [phone]- [phone] Encounter Details Date Type Department Care Team (Late st Contact Info) Description 05/04/2024 Telephone [facility] [address] [place] [address] Marcelle Landa MD [address] [place] [address] Allergies Active Allergy Reactions Criticality Noted Date Comments Propoxyphene Hcl Rash Low 10/29/2010 Fentanyl Diarrhea Low 04/26/2010 anxiety Methocarbamol Medium 10/05/2020 Other reaction(s): Delirium Methocarbamol Low 04/15/2007 Zolpidem Low 10/05/2020 Other reaction(s): Confusion documented as of this encounter (statuses as of 05/07/2024) Medications Medication Sig Dispensed Refills Start Date End Date Status venlafaxine XR (EFFEXOR XR) 150 MG [id number]:Dep ression Take 1 Cap by mouth daily. [...] Kit 11/18/2017 Active Blood Glucose Monitoring Suppl ([employer]ozat Pte LtdUCH VERIO) w/Device KIT Use as directed. Use as directed. 1 Kit 10/31/2018 Active Spacer/Aero-Holding Chambers WISAM Use with inhaler. Wheezing/bronchitis . 1 Device 04/08/2019 Active Lancet Devices (EasySizeTOUCH DELICA LANCING DEV) MISC Use four times [...] minutes 25 Tablet 5 10/16/2023 Active Nystatin 277025 UNIT/GM External Powder (Nystop)Indications :Candidal intertrigo Apply topically to affected area 3 times a day. Apply to right breast until rash resolved. 30 g 10/16/2023 Active Vitamin D (Ergocalciferol) 1.25 MG (79114 UT) Oral Capsule (Drisdol)Indication s:Vitamin D deficiency [...] Oral Tablet (Demadex)Indication s:Atherosclerotic heart disease of [place] coronary artery with other forms of angina [...] TIMES DAILY 90 Tablet 04/26/2024 Active Nystatin 439082 UNIT/ML Mouth/Throat Suspension SWISH AND SWALLOW 5ML [...] the morning. 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 Pt also to see uro-evaporative cooler installer and ID Acute cystitis without hematuria 03/27/2021 07/08/2022 Pelvic pain 03/27/2021 02/03/2024 Type 2 diabetes mellitus wit h diabetic neuropathy 09/07/2018 11/07/2023 Overview: duplicate Mild protein-calorie malnutrition 05/07/2018 04/29/2019 Diabetes mellitus with neuropathy 05/06/2018 09/07/2018 Other cirrhosis of liver 05/06/2018 Atherosclerotic heart diseas e of [place] coronary artery with other forms of angina [...] stenosis 10/31/2010 08/28/2018 Acute coronary syndrome 10/30/201001/04 [employer] Other*[id number] 02/02/2010 04/18/2014 Overview: [place] [facility], Dr Joel [...] as of this encounter (statuses as of 05/07/2024) Immunizations Name Administration Dates Next Due COVID-19 [...] encounter Miscellaneous Notes * Telephone Encounter - Melany Pond LPN [...] 4:00 PM EST [facility], [facility] [address] [facility] [place] [address] Al Doyle, RN 132 [facility] [place] [address] 05/13/2024 6:20 PM EST Office Visit [facility] [address] [place] [phone] Marcelle Landa MD [address] [place] [address] 05/24/2024 3:40 PM EST Office Visit Nephrology, [facility] [address] [place] [address] Maurilio Smith MD [address] [facility] [place] [address] 05/27/2024 10:30 AM EST Scheduled Telephone [facility], [facility] [address] [place] [facility] [place] [address] Jesusita Saenz RDN [address] [place] [facility] [place] [address] 06/08/2024 6:00 PM EST Office Visit [facility] [address] [place] [address] Brian Domínguez MD [address] [place] [address] 06/23/2024 11:45 AM EST Office Visit Urology, [facility] [address] [place] [address] Alfredo Panda MD [address] [place] [address] Scheduled Orders Name Type Priority Associated [...] Additional history exists CKD PHOS USE SMARTSET 23027 10/24/202310/05, 02/18/2022, 02/17/2022, Additional history exists COVID-19 [...] COPD 04/08/2025 04/08/2024 CKD HGB USE SMARTSET 91874 04/29/202504/29, 04/29/2024, 02/19/2024, Additional history exists DTap/Tdap [...] encounter Medical Devices Implanted Type Area Retail Warehouse Associate Device Identifier Shelf Expiration Date Model / Serial / Lot Sut Steel 6 M654g - [id number] Implanted:Qty: 3 on 02/15/2011 at [place] [facility] N/A: Chest DO NOT USE 01/15/2015 M654G / / [id number] [facility] 225-241 - [id number] Implanted:Qty: 1 on 02/15/2011 at OR [facility] N/A: Chest [employer] 225-241 / / [id number] Sut Steel 6 M654g - [id number] Implanted:Qty: 1 on 02/15/2011 at OR [facility] N/A: Chest DO NOT USE 07/21/2015 M654G / / [id number] documented as of this encounter Visit Diagnoses Diagnosis Hyponatremia- Primary Hyposmolality and/or hyponatremia documented in this encounter Advance Directives Documents on File Type Date Recorded Patient Cycling Instructor Expl anation POLST 05/06/2018 POLST * [...] 2:27 PM 12/31/2023 4:12 PM This order reflects the patients wishes [...] [facility] Communication Carolyn Ballard Adult Child Health Care Agent Care Teams Heel Cover Softener Relationship Specialty Start Date End Date Brian Domínguez MD [address] [place] [address] PCP - General Family Medicine 07/16/17 documented as of this encounter
--- OUTSIDE RECORDS SUMMARY | 2024-05-24 16:56 | External Medical Summary | Summary of Care ---
Author Name Unknown Organization [facility] Address [address] [place] [address] Phone [phone] Care Team Providers Care Electrical Manager Name Role Phone Brian Domínguez MD Primary Care Provider [phone]- [phone] Reason for Visit * Reason Onset Date Comments Appointment 05/05/2024 No Better 05/05/2024 Med Request 05/05/2024 Encounter Details Date Type Department Care Team (Late st Contact Info) Description 05/05/2024 Telephone Access Center, [place] [address] [facility] *DO NOT REMOVE THIS DEPARTMENT* [place] [address] Services, Scheduling [address] [place] [address] Appointment; No Better; Med Request Allergies Active Allergy Reactions Criticality Noted Date Comments Propoxyphene Hcl Rash Low 10/29/2010 Fentanyl Diarrhea Low 04/26/2010 anxiety Methocarbamol Medium 10/05/2020 Other reaction(s): Delirium Methocarbamol Low 04/15/2007 Zolpidem Low 10/05/2020 Other reaction(s): Confusion documented as of this encounter (statuses as of 05/06/2024) Medications Medication Sig Dispensed Refills Start Date End Date Status venlafaxine XR (EFFEXOR XR) 150 MG IF68Qoomgdeickk:Dep ression Take 1 Cap by mouth daily. [...] Kit 11/18/2017 Active Blood Glucose Monitoring Suppl (Push IO VERIO) w/Device KIT Use as directed. Use as directed. 1 Kit 10/31/2018 Active Spacer/Aero-Holding Chambers WISAM Use with inhaler. Wheezing/bronchitis . 1 Device 04/08/2019 Active Lancet Devices (Hug EnergyTOUCH DELICA LANCING DEV) MISC Use four [...] minutes 25 Tablet 5 10/16/2023 Active Nystatin 651917 UNIT/GM External Powder (Nystop)Indications :Candidal intertrigo Apply topically to affected area 3 times a day. Apply to right breast until rash resolved. 30 g 10/16/2023 Active Vitamin D (Ergocalciferol) 1.25 MG (01812 UT) Oral Capsule (Drisdol)Indication s:Vitamin D deficiency [...] TIMES DAILY 90 Tablet 04/26/2024 Active Nystatin 639969 UNIT/ML Mouth/Throat Suspension SWISH AND SWALLOW 5ML [...] encounter 01/06/2023 Coronary artery disease invo lving [place] coronary artery of [place] heart without angina pectoris 11/15/2021 Last Assessment [...] at goal, continue same Urge incontinence 03/27/2021 correction (current) use of [...] 05/04/2004 Overview: Updated due to amp error Rywzbqy-Caxxc-Hiuni disease 12/31/2002 Last Assessment & Plan: Frequent [...] is giving this. 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 uro-tour actor and ID Acute cystitis without hematuria 03/27/2021 07/08/2022 Pelvic pain 03/27/2021 02/03/2024 Type 2 diabetes mellitus wit h diabetic neuropathy 09/07/2018 11/07/2023 Overview: duplicate Mild protein-calorie malnutrition 05/07/2018 04/29/2019 Diabetes mellitus with neuropathy 05/06/2018 09/07/2018 Other cirrhosis of liver 05/06/2018 Atherosclerotic heart diseas e of [place] [...] 08/28/2018 Acute coronary syndrome 10/30/201001/04 PERNELL Anaid Other*[id number] 02/02/2010 04/18/2014 Overview: [place] [facility], Dr Joel CASAS Obesity, morbid (more [...] Telephone Encounter - Pinky Perry LPN - 05/06/2024 10:50 AM EDT Called [facility] and gave a verbal order of the Cefdinir 300 mg and Prednisone 10 mg taper per the provider's orders. Called pt's daughter to make her aware the RX's should be ready soon at the pharmacy. Daughter stated understanding. * Telephone Encounter - Paul Joseph OSA - 05/06/2024 10:27 AM EDT Pt's daughter called in stating that the [facility] pharmacy on [facility] never received a fax about the Cefdinir [...] Description 05/11/2024 4:00 PM EST Home Visit [facility] [address] [place] [address] Al Doyle, KAT [address] [place] [address] 05/13/2024 6:20 PM EST Office Visit [address] [place] [phone] Marcelle Landa MD [address] [place] [address] 05/24/2024 3:40 PM EST Office Visit Nephrology, [facility] [address] [place] [address] Maurilio Smith MD [address] [facility] [place] [address] 05/27/2024 10:30 AM EST Scheduled Telephone [facility], [facility] [address] [place] [facility] [place] [address] Jesusita Saenz RDN [address] [place] [facility] [place] [address] 06/08/2024 6:00 PM EST Office Visit Family Practice, [place] [address] [place] [phone] Brian Domínguez MD [address] [place] [address] 06/23/2024 11:45 AM EST Office Visit Urology, [facility] [address] [place] [address] Alfredo Panda MD [address] [facility] [place] [phone] Scheduled Orders Name Type Priority Associated Diagnoses [...] Additional history exists CKD PHOS USE SMARTSET 74619 10/24/202310/05, 02/18/2022, 02/17/2022, Additional history exists COVID-19 [...] COPD 04/08/2025 04/08/2024 CKD HGB USE SMARTSET 40717 04/29/202504/29, 04/29/2024, 02/19/2024, Additional history exists DTap/Tdap [...] this encounter Medical Devices Implanted Type Area Plating Equipment Tender Device Identifier Shelf Expiration Date Model / Serial / Lot Sut Steel 6 M654g - [id number] Implanted:Qty: 3 on 02/15/2011 at OR [facility] N/A: Chest DO NOT USE 01/15/2015 M654G / / [id number] Band Magdy 225-241 - [id number] Implanted:Qty: 1 on 02/15/2011 at OR [facility] N/A: Chest [employer] 225-241 / / [id number] Sut Steel 6 M654g - [id number] Implanted:Qty: 1 on 02/15/2011 at OR [facility] N/A: Chest DO NOT USE 07/21/2015 M654G / / [id number] documented as of this encounter Visit Diagnoses Diagnosis Pneumonia due to infectious organism, unspecified laterality, unspecified part of lung- Primary documented in this encounter Advance Directives Documents on File Type Date Recorded Patient Immigration Lawyer Expl anation POLST 05/06/2018 POLST * Full [...] Child Health Care Agent Care Teams Electrical Manager Relationship Specialty Start Date End Date Brian Domínguez MD [address] [place] [address] PCP - General Family Medicine 07/16/17 documented as of this encounter
--- OUTSIDE RECORDS SUMMARY | 2024-05-24 16:56 | External Medical Summary | Summary of Care ---
Author Name Unknown Organization [facility] Address [address] [place] [address] Phone [phone] Care Team Providers Care Fixer Supervisor Name Role Phone Brian Domínguez MD Primary Care Provider +1- [phone] Reason for Visit * Reason Onset Date Comments Nurse Documentation 04/22/2024 Encounter Details Date Type Department Care Team (Late st Contact Info) Description 04/22/2024 Telephone [facility] [address] [place] [address] Brian Domínguez MD [address] [place] [address] Nurse Documentation Allergies Active Allergy Reactions Criticality Noted Date Comments Propoxyphene Hcl Rash Low 10/29/2010 Fentanyl Diarrhea Low 04/26/2010 anxiety Methocarbamol Medium 10/05/2020 Other reaction(s): Delirium Methocarbamol Low 04/15/2007 Zolpidem Low 10/05/2020 Other reaction(s): Confusion documented as of this encounter (statuses as of 05/05/2024) Medications Medication Sig Dispensed Refills Start Date End Date Status venlafaxine XR (EFFEXOR XR) 150 MG [id number]:Dep ression Take 1 Cap by mouth daily. [...] Kit 11/18/2017 Active Blood Glucose Monitoring Suppl (ProfitablyTOUCH VERIO) w/Device KIT Use as directed. Use [...] minutes 25 Tablet 5 10/16/2023 Active Nystatin 267626 UNIT/GM External Powder (Nystop)Indications :Candidal intertrigo Apply topically to affected area 3 times a day. Apply to right breast until rash resolved. 30 g 10/16/2023 Active Vitamin D (Ergocalciferol) 1.25 MG (10635 UT) Oral Capsule (Drisdol)Indication s:Vitamin D deficiency [...] Oral Tablet (Demadex)Indication s:Atherosclerotic heart disease of [place] coronary artery with other forms of angina [...] as of this encounter (statuses as of 05/05/2024) Active Problems Problem Noted Date Diagnosed Date [...] encounter 01/06/2023 Coronary artery disease invo lving [place] coronary artery of [place] heart without angina pectoris 11/15/2021 Last Assessment [...] 05/04/2004 Overview: Updated due to amp error Huxneam-Maajy-Heeft disease 12/31/2002 Last Assessment & Plan: Frequent falls Home PT and OT continue GONZALEZ (nonalcoholic steatohepatitis) documented as of this encounter (statuses as of 05/05/2024) Resolved Problems Problem Noted Date Diagnosed Date [...] is giving this. Pt also to see uro-antique dealer and ID Acute cystitis without hematuria 03/27/2021 07/08/2022 Pelvic pain 03/27/2021 02/03/2024 Type 2 diabetes mellitus wit h diabetic neuropathy 09/07/2018 11/07/2023 Overview: duplicate Mild protein-calorie malnutrition 05/07/2018 04/29/2019 Diabetes mellitus with neuropathy 05/06/2018 09/07/2018 Other cirrhosis of liver 05/06/2018 Atherosclerotic heart diseas e of [place] coronary artery with other forms of angina [...] stenosis 10/31/2010 08/28/2018 Acute coronary syndrome 10/30/201001/04 [place] Research Other*[id number] 02/02/2010 04/18/2014 Overview: [place] Registry, Dr Joel Kwon PI Obesity, morbid [...] 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 Brian Domínguez [facility] received from [facility] FAXED documented in this encounter Plan of Treatment Upcoming Encounters Date Type Department Care Team (Late st Contact Info) Description 05/11/2024 4:00 PM EST [facility] Visit [facility], [facility] 132 [facility] [place] [address] Al Doyle, KAT 132 [facility] [place] [address] 05/24/2024 3:40 PM EST Office Visit Nephrology, [address] [place] [address] Maurilio Smith MD [address] [facility] [address] 05/27/2024 10:30 AM EST Scheduled Telephone [facility], [facility] [address] [facility] [place] [address] Jesusita Saenz, RDN [address] [facility] [place] [address] 06/08/2024 6:00 PM EST Office Visit [facility] [address] [facility] [phone] Brian Domínguez MD [address] [place], [place] [address] 06/23/2024 11:45 AM EST Office Visit Urology, [facility] [address] [place] [address] Alfredo Panda MD [address] [place] [...] Additional history exists CKD PHOS USE SMARTSET 82109 10/24/202310/05, 02/18/2022, 02/17/2022, Additional history exists COVID-19 Vaccine ( season) 2024 06/10/2021, 08/29/2020, 08/01/2020 Colonoscopy 05/20/2024 05/20/2014 Colorectal Cancer Screening 05/20/2024 TSH 06/17/2024 06/17/2023, 05/08, 02/13/2023, Additional history exists HbA1c 08/21/2024 02/19/2024, 0612/2023, 10/17/2023, Additional history exists Diabetic Foot Exam 10/15/2024 10/16/2023, 1 07/22/2019, 02/22/2019, Additional history exists GFR 10/28/2024 04/29/2024, 02/04, 10/21/2023, Additional history exists Albumin/Creatinine Ratio 11/03/2024 024, 10/23/2022, 07/17/2022, Additional history exists O2 ASSESSMENT COMPLETED IN PAST YEAR FOR COPD 04/08/2025 04/08/2024 CKD HGB USE SMARTSET 89710 04/29/202504/29, 04/29/2024, 02/19/2024, Additional history exists DTap/Tdap [...] this encounter Medical Devices Implanted Type Area Internet Specialist Device Identifier Shelf Expiration Date Model / Serial / Lot Sut Steel 6 M654g - [id number] Implanted:Qty: 3 on 02/15/2011 [place] [facility] [place]: Chest DO NOT USE 01/15/2015 M654G / / [id number] [facility] 225-241 - [id number] Implanted:Qty: 1 on 02/15/2011 at [place] [facility] [place]A: Chest [employer] 225-241 / / [id number] Sut Steel 6 M654g - [id number] Implanted:Qty: 1 on 02/15/2011 at [place] [facility] [place]A: Chest DO NOT USE 07/21/2015 M654G / / [id number] documented as of this encounter Advance Directives Documents on File Type Date Recorded Patient Roll Coverer Expl anation POL 05/06/2018 POLST * Full [...] Healthcare Agent [facility] Communication Carolyn Godlmandrewnabila Adult Child Health Care Agent Care Teams Fixer Supervisor Relationship Specialty Start Date End Date Brian Domínguez MD [address] [place] [address] PCP - General Family Medicine 07/16/17 documented as of this encounter
--- OUTSIDE RECORDS SUMMARY | 2024-05-24 16:56 | External Medical Summary | Summary of Care ---
Author Name Unknown Organization [facility] Address [address] [place] [address] Phone [phone] Care Team Providers Care Hand Slitter Name Role Phone Brian Domínguez MD Primary Care Provider +1- [phone] Reason for Visit * Reason Onset Date Comments Appointment 05/05/2024 No Better 05/05/2024 Med Request 05/05/2024 Encounter Details Date Type Department Care Team (Late st Contact Info) Description 05/05/2024 Telephone [facility], [place] [address] [facility] *DO NOT REMOVE THIS DEPARTMENT* [place] [address] Services, Scheduling [address] [place] [address] Appointment; No Better; Med Request Allergies Active Allergy Reactions Criticality Noted Date Comments Propoxyphene Hcl Rash Low 10/29/2010 Fentanyl Diarrhea Low 04/26/2010 anxiety Methocarbamol Medium 10/05/2020 Other reaction(s): Delirium Methocarbamol Low 04/15/2007 Zolpidem Low 10/05/2020 Other reaction(s): Confusion documented as of this encounter (statuses as of 05/06/2024) Medications Medication Sig Dispensed Refills Start Date End Date Status venlafaxine XR (EFFEXOR XR) 150 MG [id number]:Dep ression Take 1 Cap by mouth daily. [...] Kit 11/18/2017 Active Blood Glucose Monitoring Suppl (Arieso VERIO) w/Device KIT Use as directed. Use as directed. 1 Kit 10/31/2018 Active Spacer/Aero-Holding Chambers WISAM Use with inhaler. Wheezing/bronchitis . 1 Device 04/08/2019 Active Lancet Devices (Celer Logistics GroupTOUCH DELICA LANCING DEV) MISC Use four times [...] minutes 25 Tablet 5 10/16/2023 Active Nystatin 822102 UNIT/GM External Powder (Nystop)Indications :Candidal intertrigo Apply topically to affected area 3 times a day. Apply to right breast until rash resolved. 30 g 10/16/2023 Active Vitamin D (Ergocalciferol) 1.25 MG (15564 UT) Oral Capsule (Drisdol)Indication s:Vitamin D deficiency [...] Oral Tablet (Demadex)Indication s:Atherosclerotic heart disease of [place] coronary artery with other forms of angina [...] TIMES DAILY 90 Tablet 04/26/2024 Active Nystatin 848028 UNIT/ML Mouth/Throat Suspension SWISH AND SWALLOW 5ML [...] encounter 01/06/2023 Coronary artery disease invo lving [place] coronary artery of [place] heart without angina pectoris 11/15/2021 Last Assessment [...] at goal, continue same Urge incontinence 03/27/2021 custodial (current) use of [...] 05/04/2004 Overview: Updated due to amp error Cmflusm-Jxuvv-Pmofv disease 12/31/2002 Last Assessment & Plan: Frequent [...] is giving this. Pt also to see uro-airframe technician and ID Acute cystitis without hematuria 03/27/2021 07/08/2022 Pelvic pain 03/27/2021 02/03/2024 Type 2 diabetes mellitus wit h diabetic neuropathy 09/07/2018 11/07/2023 Overview: duplicate Mild protein-calorie malnutrition 05/07/2018 04/29/2019 Diabetes mellitus with neuropathy 05/06/2018 09/07/2018 Other cirrhosis of liver 05/06/2018 Atherosclerotic heart diseas e of [place] coronary artery with other forms of angina [...] 08/28/2018 Acute coronary syndrome 10/30/201001/04 [place] [facility] Other*[id number] 02/02/2010 04/18/2014 Overview: [place] Registry, Dr Joel CASAS Obesity, morbid (more [...] encounter Miscellaneous Notes * Telephone Encounter - Chapis Branch OSA [...] 4:00 PM EST [facility] Visit [facility] [place], [facility] [address] [facility] [place] [address] Al Doyle, KAT 132 [facility] [place] [address] 05/13/2024 6:20 PM EST Office Visit [facility] [address] [place] [address] Marcelle Landa MD [address] [place] [address] 05/24/2024 3:40 PM EST Office Visit Nephrology, [address] [place] [address] Maurilio Smith MD [address] [place] [address] [place] [address] 05/27/2024 10:30 AM EST Scheduled Telephone [facility], [facility] [address] [facility] [place] [address] Jesusita Saenz RDN [address] [facility] [place] [address] 06/08/2024 6:00 PM EST Office Visit Family [facility] [place] [address] [facility] [place] [address] Brian Domínguez MD [address] [place] [address] 06/23/2024 11:45 AM EST Office Visit Urology, [facility] 132 [facility] [place] [address] Alfredo Panda MD [address] [place] [address] Scheduled Orders Name Type Priority Associated [...] Additional history exists CKD PHOS USE SMARTSET 49985 10/24/202310/05, 02/18/2022, 02/17/2022, Additional history exists COVID-19 [...] COPD 04/08/2025 04/08/2024 CKD HGB USE SMARTSET 36904 04/29/202504/29, 04/29/2024, 02/19/2024, Additional history exists DTap/Tdap [...] encounter Medical Devices Implanted Type Area Line Erector Apprentice Device Identifier Shelf Expiration Date Model / Serial / Lot Sut Steel 6 M654g - [id number] Implanted:Qty: 3 on 02/15/2011 at OR [facility] [place] N/A: Chest DO NOT USE 01/15/2015 M654G / / [id number] Gaston Fuentesham 225-241 - [id number] Implanted:Qty: 1 on 02/15/2011 at OR [facility] [place] N/A: Chest [employer] 225-241 / / [id number] Sut Steel 6 M654g - [id number] Implanted:Qty: 1 on 02/15/2011 at OR [facility] [place] N/A: Chest DO NOT USE 07/21/2015 M654G / / [id number] documented as of this encounter Visit Diagnoses Diagnosis Pneumonia due to infectious organism, unspecified laterality, unspecified part of lung- Primary documented in this encounter Advance Directives Documents on File Type Date Recorded Patient Chest Painting Leader Jose luna POL 05/06/2018 POLST * Full [...] Agents on File Name Relationship [facility] Communication Carolyntimothy Ballard Adult Child Health Care Agent Care Teams Hand Slitter Relationship Specialty Start Date End Date Brian Domínguez MD [address] [facility] [place] [address] PCP - General Family Medicine 07/16/17 documented as of this encounter
--- OUTSIDE RECORDS SUMMARY | 2024-05-24 16:57 | External Medical Summary | Summary of Care ---
Author Name Unknown Organization [facility] Address [address] [place] [address] Phone [phone] Care Team Providers Care Fermenting Cellars Receiver Name Role Phone Brian Domínguez MD Primary Care Provider +1- [phone] Encounter Details Date Type Department Care Team (Late st Contact Info) Description 05/04/2024 Telephone [facility] [address] [place] [address] Marcelle Landa MD [address] [place] [address] Allergies Active Allergy Reactions Criticality Noted Date Comments Propoxyphene Hcl Rash Low 10/29/2010 Fentanyl Diarrhea Low 04/26/2010 anxiety Methocarbamol Medium 10/05/2020 Other reaction(s): Delirium Methocarbamol Low 04/15/2007 Zolpidem Low 10/05/2020 Other reaction(s): Confusion documented as of this encounter (statuses as of 05/04/2024) Medications Medication Sig Dispensed Refills Start Date End Date Status venlafaxine XR (EFFEXOR XR) 150 MG [id number]:Dep ression Take 1 Cap by mouth daily. [...] Kit 11/18/2017 Active Blood Glucose Monitoring Suppl (Curaxis PharmaceuticalUCH VERIO) w/Device KIT Use as directed. Use as directed. 1 Kit 10/31/2018 Active Spacer/Aero-Holding Chambers WISAM Use with inhaler. Wheezing/bronchitis . 1 Device 04/08/2019 Active Lancet Devices ([place] PharmacyTOUCH DELICA LANCING DEV) MISC Use four times [...] minutes 25 Tablet 5 10/16/2023 Active Nystatin 677984 UNIT/GM External Powder (Nystop)Indications :Candidal intertrigo Apply topically to affected area 3 times a day. Apply to right breast until rash resolved. 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 Pt also to see uro-front end assistant and ID Acute cystitis without hematuria 03/27/2021 07/08/2022 Pelvic pain 03/27/2021 02/03/2024 Type 2 diabetes mellitus wit h diabetic neuropathy 09/07/2018 11/07/2023 Overview: duplicate Mild protein-calorie malnutrition 05/07/2018 04/29/2019 Diabetes mellitus with neuropathy 05/06/2018 09/07/2018 Other cirrhosis of liver 05/06/2018 Atherosclerotic heart diseas e of [place] coronary [...] stenosis 10/31/2010 08/28/2018 Acute coronary syndrome 10/30/201001/04 [place] Research Other*[id number] 02/02/2010 04/18/2014 Overview: [place] [facility], Dr Joel [...] Duplicate Protocol #2. 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/2014 bed bug exterminator current use of ant icoagulant therapy [...] as of this encounter (statuses as of 05/04/2024) Immunizations Name Administration Dates Next Due COVID-19 [...] encounter Miscellaneous Notes * Telephone Encounter - Marcelle Landa MD [...] PM EST Home Visit [facility], [facility] [address] [place] [address] Al Doyel, RN 132 [place] [address] 05/24/2024 3:40 PM EST Office [facility] [address] [place] [address] Maurilio Smith MD 400 [facility] [place] [address] 05/27/2024 10:30 AM EST Scheduled Telephone [facility], [facility] [address] [facility] [place] [address] Jesusita Saenz, RDN [address] [facility] [place] [address] 06/08/2024 6:00 PM EST Office Visit Family Practice, [place] [address] [place] [address] Brian Domínguez MD [address] [place] [address] 06/23/2024 11:45 AM EST Office Visit Urology, [facility] 132 [facility] [place] [address] Alfredo Panda MD 27 [facility] [place] [address] Scheduled Orders Name Type Priority Associated [...] Additional history exists CKD PHOS USE SMARTSET 18861 10/24/202310/05, 02/18/2022, 02/17/2022, Additional history exists COVID-19 [...] COPD 04/08/2025 04/08/2024 CKD HGB USE SMARTSET 42611 04/29/202504/29, 04/29/2024, 02/19/2024, Additional history exists DTap/Tdap [...] this encounter Medical Devices Implanted Type Area Cdl Service Technician Device Identifier Shelf Expiration Date Model / Serial / Lot Jenna Rojas 6 M654g - [id number] Implanted:Qty: 3 on 02/15/2011 [place] [facility] [place]A: Chest DO NOT USE 01/15/2015 M654G / / [id number] Band Magdy 225-241 - [id number] Implanted:Qty: 1 on 02/15/2011 [place] [facility] [place]A: Chest [employer] 225-241 / / [id number] Jenna Rojas 6 M654g - [id number] Implanted:Qty: 1 on 02/15/2011 at [place] [facility] [place]A: Chest DO NOT USE 07/21/2015 M654G / / [id number] documented as of this encounter Visit Diagnoses Diagnosis Hyponatremia- Primary Hyposmolality and/or hyponatremia documented in this encounter Advance Directives Documents on File Type Date Recorded Patient Test Lead Application Testing Expl anation POLST 05/06/2018 POLST * Full [...] Adult Child Health Care Agent Care Teams Fermenting Cellars Receiver Relationship Specialty Start Date End Date Brian Domínguez MD [address] [place] [address] PCP - General Family Medicine 07/16/17 documented as of this encounter
--- OUTSIDE RECORDS SUMMARY | 2024-05-24 16:57 | External Medical Summary | Summary of Care ---
Author Name Unknown Organization [facility] Address [address] [place] [address] Phone [phone] Care Team Providers Care Clinical Trials Data Coordinator Name Role Phone Brian Domínguez MD Primary Care Provider +1- [phone] Encounter Details Date Type Department Care Team (Late st Contact Info) Description 05/04/2024 Telephone [facility] [address] [place] [address] Marcelle Landa MD [address] [place] [address] Allergies Active Allergy Reactions Criticality Noted Date Comments Propoxyphene Hcl Rash Low 10/29/2010 Fentanyl Diarrhea Low 04/26/2010 anxiety Methocarbamol Medium 10/05/2020 Other reaction(s): Delirium Methocarbamol Low 04/15/2007 Zolpidem Low 10/05/2020 Other reaction(s): Confusion documented as of this encounter (statuses as of 05/05/2024) Medications Medication Sig Dispensed Refills Start Date End Date Status venlafaxine XR (EFFEXOR XR) 150 MG PO95Kzlugpxvcdd:Dep ression Take 1 Cap by mouth daily. [...] Kit 11/18/2017 Active Blood Glucose Monitoring Suppl (BUYSTANDUCH VERIO) w/Device KIT Use as directed. Use as directed. 1 Kit 10/31/2018 Active Spacer/Aero-Holding Chambers WISAM Use with inhaler. Wheezing/bronchitis . 1 Device 04/08/2019 Active Lancet Devices (GyftTOUCH DELICA LANCING DEV) MISC Use four times [...] minutes 25 Tablet 5 10/16/2023 Active Nystatin 232450 UNIT/GM External Powder (Nystop)Indications :Candidal intertrigo Apply topically to affected area 3 times a day. Apply to right breast until rash resolved. 30 g 10/16/2023 Active Vitamin D (Ergocalciferol) 1.25 MG (29510 UT) Oral Capsule (Drisdol)Indication s:Vitamin D deficiency [...] Oral Tablet (Demadex)Indication s:Atherosclerotic heart disease of [place] coronary artery with other forms of [...] TIMES DAILY 90 Tablet 04/26/2024 Active Nystatin 020829 UNIT/ML Mouth/Throat Suspension SWISH AND SWALLOW 5ML [...] encounter 01/06/2023 Coronary artery disease invo lving [place] coronary artery of [place] heart without angina pectoris 11/15/2021 Last [...] at goal, continue same Urge incontinence 03/27/2021 tank terminal gauger (current) [...] 05/04/2004 Overview: Updated due to amp error Nqyenhd-Ihuqn-Duxbb disease 12/31/2002 Last Assessment & Plan: Frequent [...] is giving this. Pt also to see uro-nursing home assistant administrator and ID Acute cystitis without hematuria 03/27/2021 07/08/2022 Pelvic pain 03/27/2021 02/03/2024 Type 2 diabetes mellitus wit h diabetic neuropathy 09/07/2018 11/07/2023 Overview: duplicate Mild protein-calorie malnutrition 05/07/2018 04/29/2019 Diabetes mellitus with neuropathy 05/06/2018 09/07/2018 Other cirrhosis of liver 05/06/2018 Atherosclerotic heart diseas e of [place] coronary artery with other forms of [...] stenosis 10/31/2010 08/28/2018 Acute coronary syndrome 10/30/201001/04 [place] Research Other*[id number] 02/02/2010 04/18/2014 Overview: [place] [facility], Dr Joel [...] 01/21/2014 tank terminal gauger current use of ant icoagulant [...] [facility] 132 [facility] [place] [address] Al Doyle, KAT 132 [facility] [place] [address] 05/24/2024 3:40 PM EST Office Visit Nephrology, [address] [place] [address] Maurilio Smith MD 400 [facility] [place] [address] 05/27/2024 10:30 AM EST Scheduled Telephone [facility], [facility] [address] [place] [address] Jesusita Saenz, RDN [address] [place] [address] 06/08/2024 6:00 PM EST Office Visit [facility] [address] [place] [phone] Brian Domínguez MD [address] [place] [address] 06/23/2024 11:45 AM EST Office Visit Urology, [facility] 132 [facility] [place] [address] Alfredo Panda MD [address] [place] [address] Scheduled Orders Name Type Priority Associated Diagnoses [...] Additional history exists CKD PHOS USE SMARTSET 83054 10/24/202310/05, 02/18/2022, 02/17/2022, Additional history exists COVID-19 [...] COPD 04/08/2025 04/08/2024 CKD HGB USE SMARTSET 49938 04/29/202504/29, 04/29/2024, 02/19/2024, Additional history exists DTap/Tdap [...] encounter Medical Devices Implanted Type Area Cyber Workforce Developer And Manager Device Identifier Shelf Expiration Date Model / Serial / Lot Sut Steel 6 M654g - [id number] Implanted:Qty: 3 on 02/15/2011 at OR [place] N/A: Chest DO NOT USE 01/15/2015 M654G / / [id number] Band Magdy 225-241 - [id number] Implanted:Qty: 1 on 02/15/2011 at OR [place] N/A: Chest [employer] 225-241 / / [id number] Sut Steel 6 M654g - [id number] Implanted:Qty: 1 on 02/15/2011 at OR [place] N/A: Chest DO NOT USE 07/21/2015 M654G / / [id number] documented as of this encounter Visit Diagnoses Diagnosis Hyponatremia- Primary Hyposmolality and/or hyponatremia documented in this encounter Advance Directives Documents on File Type Date Recorded Patient Smooth Stucco Resurfacer Expl anation DURAN 05/06/2018 POLST * Full [...] Child Health Care Agent Care Teams Clinical Trials Data Coordinator Relationship Specialty Start Date End Date Brian Domínguez MD [address] [place] [address] PCP - General Family Medicine 07/16/17 documented as of this encounter
--- OUTSIDE RECORDS SUMMARY | 2024-05-24 16:57 | External Medical Summary | Summary of Care ---
Author Name Unknown Organization [facility] Address [address] [place] [address] Phone [phone] Care Team Providers Care Weld Lay Out Worker Name Role Phone Brian Domínguez MD Primary Care Provider [phone] Encounter Details Date Type Department Care Team (Late st Contact Info) Description 05/04/2024 Telephone [facility] [address] [place] [address] Marcelle Landa MD [address] [place] [address] Allergies Active Allergy Reactions Criticality Noted Date Comments Propoxyphene Hcl Rash Low 10/29/2010 Fentanyl Diarrhea Low 04/26/2010 anxiety Methocarbamol Medium 10/05/2020 Other reaction(s): Delirium Methocarbamol Low 04/15/2007 Zolpidem Low 10/05/2020 Other reaction(s): Confusion documented as of this encounter (statuses as of 05/05/2024) Medications Medication Sig Dispensed Refills Start Date End Date Status venlafaxine XR (EFFEXOR XR) 150 MG [id number]:Dep ression Take 1 Cap by mouth daily. [...] Kit 11/18/2017 Active Blood Glucose Monitoring Suppl (CiappleUCH VERIO) w/Device KIT Use as directed. Use as directed. 1 Kit 10/31/2018 Active Spacer/Aero-Holding Chambers WISAM Use with inhaler. Wheezing/bronchitis . 1 Device 04/08/2019 Active Lancet Devices (OlarkTOUCH DELICA LANCING DEV) MISC Use four times [...] minutes 25 Tablet 5 10/16/2023 Active Nystatin 899661 UNIT/GM External Powder (Nystop)Indications :Candidal intertrigo Apply topically to affected area 3 times a day. Apply to right breast until rash resolved. 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 Pt also to see uro-crm architect and ID Acute cystitis without hematuria 03/27/2021 [...] stenosis 10/31/2010 08/28/2018 Acute coronary syndrome 10/30/201001/04 [employer] Other*[id number] 02/02/2010 04/18/2014 Overview: Karen Registry, Dr Joel [...] Protocol #2. 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 [address] [facility] [place] [address] Al Doyle, KAT [address] [facility] [place] [address] 05/24/2024 3:40 PM EST Office Visit Nephrology, [address] [place] [address] Maurilio Smith MD [address] [facility] [place] [address] 05/27/2024 10:30 AM EST Scheduled Telephone [facility], [facility] [address] [place] [facility] [place] [address] Jesusita Saenz, RDN [address] [place] [address] 06/08/2024 6:00 PM EST Office Visit [facility] [address] [place] [id number] Brian Domínguez MD [address] [place] [address] 06/23/2024 11:45 AM EST Office Visit Urology, [facility] [address] [facility] [place] [address] Alfredo Panda MD [address] [place] [address] Scheduled Orders Name Type Priority Associated Diagnoses [...] Additional history exists CKD PHOS USE SMARTSET 80808 10/24/202310/05, 02/18/2022, 02/17/2022, Additional history exists COVID-19 [...] COPD 04/08/2025 04/08/2024 CKD HGB USE SMARTSET 81609 04/29/202504/29, 04/29/2024, 02/19/2024, Additional history exists DTap/Tdap [...] this encounter Medical Devices Implanted Type Area Lithographic Retoucher Apprentice Device Identifier Shelf Expiration Date Model / Serial / Lot Sut Steel 6 M654g - [id number] [place] 3 [place]2011 [place] [facility] [place] Chest DO NOT USE 01/15/2015 M654G / / [id number] Band Magdy 225-241 - [id number] Implanted:Qty: 1 on 02/15/2011 [place] [facility] [place]: Chest [employer] 225-241 / / [id number] Sut Steel 6 M654g - [id number] Implanted:Qty: 1 on 02/15/2011 [place] [facility] [place]: Chest DO NOT USE 07/21/2015 M654G / / [id number] documented as of this encounter Visit Diagnoses Diagnosis Hyponatremia- Primary Hyposmolality and/or hyponatremia documented in this encounter Advance Directives Documents on File Type Date Recorded 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
--- OUTSIDE RECORDS SUMMARY | 2024-05-24 16:58 | External Medical Summary | Summary of Care ---
Author Name Unknown Organization [facility] Address [address] [place] [address] Phone [phone] Care Team Providers Care Lay Out And Detail Drafter Name Role Phone Brian Domínguez MD Primary Care Provider [phone] Reason for Visit * Reason Onset Date Comments Hospital Follow-Up Pt here today for hospital discharge follow up Hospital Follow-Up 04/29/2024 Encounter Details Date Type Department Care Team (Latest Contact Info) Description 04/29/2024 11:20 AM EDT Office Visit [facility] [address] [place] [address] Marcelle Landa MD [address] [place] [address] Pneumonia of right upper lobe due to infectious organism*; Vaccine for viral hepatitis; Type 2 diabetes mellitus with stage 3a chronic kidney disease, with long-term current use of insulin (HCC); GONZALEZ (nonalcoholic steatohepatitis); COPD, group B, by GOLD 2017 classification (HCC); Chronic liver disease and cirrhosis (HCC); Allergic rhinitis, unspecified seasonality, unspecified trigger; Hospital discharge follow-up Allergies Active Allergy Reactions Criticality Noted Date Comments Propoxyphene Hcl Rash Low 10/29/2010 Fentanyl Diarrhea Low 04/26/2010 anxiety Methocarbamol Medium 10/05/2020 Other reaction(s): Delirium Methocarbamol Low 04/15/2007 Zolpidem Low 10/05/2020 Other reaction(s): Confusion documented as of this encounter (statuses as of 04/29/2024) Medications Medication Sig Dispensed Refills Start Date End Date Status venlafaxine XR (EFFEXOR XR) 150 MG CO12Fiigfmgixig:De pression Take 1 Cap by mouth daily. With food. 30 Cap 5 09/02/19 17 Active Additional Information Patient taking differently: 225 mgOral Daily(AM),Taking a total of 225 mg, Indications: Takes 225 mg total every morning with food (150 mg tab + 75 mg tab), Reported on 03/03/2023 Blood Glucose Monitoring Suppl (Radiation Watch-InSequent GLUCOMETER) w/Device KITIndications:Unc ontrolled type 2 diabetes mellitus without complication, without long-term current use of insulin Use as directed. Use as directed once daily 1 Kit 11/19/19 18 Active Blood Glucose Monitoring Suppl (Zilyo VERIO) w/Device KIT Use as directed. Use as directed. 1 Kit 11/01/19 19 Active Spacer/Aero-Holdin g Chambers WISAM Use with inhaler. Wheezing/bronchiti s. 1 Device 04/08/20 19 Active Lancet Devices (VibeaseTOUCH DELICA LANCING DEV) MISC Use four times [...] 25 Tablet 5 10/16/19 24 Active Nystatin 141759 UNIT/GM External Powder (Nystop)Indication s:Candidal intertrigo Apply topically to affected area 3 times a day. Apply to right breast until rash resolved. 30 g 10/16/19 24 Active Vitamin D (Ergocalciferol) 1.25 MG (16277 UT) Oral Capsule (Drisdol)Indicatio ns:Vitamin D deficiency [...] OTHER MEDICATIONS 90 Tablet 03/11/20 24 Active OneTouch Verio In Vitro [...] BEFORE BEDTIME 180 Tablet 03/31/20 24 Active Additional Information Patient not taking.Reported on 04/27/2024 Torsemide 20 MG Oral Tablet (Demadex)Indicatio ns:Atherosclerotic heart disease of tuscarora coronary artery with other forms of angina [...] DAILY 90 Tablet 04/26/20 24 Active Nystatin 267519 UNIT/ML Mouth/Throat Suspension SWISH AND SWALLOW 5ML IN THE MORNING AND 5ML AT NOON AND 5 ML IN THE EVENING AND 5ML BEFORE BEDTIME, FOR THRUSH 240 mL 1 04/26/20 24 Active Ferrous Sulfate 325 (65 Fe) MG Oral Tablet Delayed Release Take 1 Tablet by mouth. 04/27/20 24 Active Sulfamethoxazole-T rimethoprim 800-160 MG Oral Tablet (Bactrim DS) Take 1 Tablet by mouth in the morning and 1 Tablet before bedtime. 8 Tablet 04/08/20 24 024 Discontinued documented as of this encounter (statuses as of 04/29/2024) Active Problems Problem Noted Date Diagnosed Date Recurrent UTI 03/23/2024 Pelvic pain 03/23/2024 Suprapubic catheter 02/09/2024 Chronic kidney disease, stage 3a 11/17/2023 Overview: Per CKD protocol COPD, group B, by GOLD 2017 classification 05/13 /2024 Overview: Per COPD GOLD Classification Last Assessment [...] encounter 01/06/2023 Coronary artery disease invo lving tuscarora coronary artery of tuscarora heart without angina pectoris 11/15/2021 Last Assessment [...] at goal, continue same Urge incontinence 03/27/2021 alf (current) use of [...] 05/04/2004 Overview: Updated due to amp error Ydlofii-Dpzne-Kqvlg disease 12/31/2002 Last Assessment & Plan: Frequent falls Home PT and OT continue GONZALEZ (nonalcoholic steatohepatitis) documented as of this encounter (statuses as of 04/29/2024) Resolved Problems Problem Noted Date Diagnosed Date [...] is giving this. Pt also to see uro-graves registration specialist and ID Acute cystitis without hematuria 03/27/2021 07/08/2022 Pelvic pain 03/27/2021 02/03/2024 Type 2 diabetes mellitus wit h diabetic neuropathy 09/07/2018 11/07/2023 Overview: duplicate Mild protein-calorie malnutrition 05/07/2018 04/29/2019 Diabetes mellitus with neuropathy 05/06/2018 09/07/2018 Other cirrhosis of liver 05/06/2018 Atherosclerotic heart diseas e of tuscarora coronary artery with other forms of angina [...] stenosis 10/31/2010 08/28/2018 Acute coronary syndrome 10/30/201001/04 [facility] [employer] Other*[id number] 02/02/2010 04/18/2014 Overview: [facility] Registry, Dr Althea [...] as of this encounter (statuses as of 04/29/2024) Immunizations Name Administration Dates Next Due COVID-19 [...] Sign Reading Time Taken Comments Blood Pressure 130/72 04/29/2024 11:31 AM EDT Pulse 81 04/29/2024 11:31 AM EDT Temperature 36.4 C (97.5 F) 04/29/2024 11:31 AM E DT Respiratory Rate 18 04/29/2024 11:31 AM EDT Oxygen Saturation 95% 04/29/2024 11:31 AM EDT Inhaled Oxygen Concentration - - Weight 108 kg (238 lb) 04/29/2024 11:31 AM EDT Height - - Body Mass Index 36.19 04/08/2024 3:03 PM EDT documented in this encounter Patient Instructions * Patient Instructions* Pinky Perry LPN - 04/29/2024 11:34 AM EDT Vaccination is the best way to protect against hepatitis B. Depending on age and vaccine used most patients get 2 or 3 doses of hepatitis B vaccine. If you miss a dose or get behind schedule, get the next dose as soon as you can. There is no need to start over. Age for Hepatitis B Vaccine: INFANTS: *Infants whose mother HAS hepatitis B virus: #1 dose- at 2 month visit #2 dose- 1 month after dose #1 #3 dose- 7 months of age (at least 5 months after dose #1) *Infants whose mother does NOT have hepatitis B virus: #1 dose- - 2 months of age #2 dose- 1-4 months of age (at least 1 month after dose #1) #3 dose- 6-18 months of age ( at least 2 months after dose #2) *Adults at recommended age to receive Hepatitis B vaccine may receive 2 or 3 doses depending on thetype of vaccine administered: #1 dose- Now #2 dose- 1-2 months after dose #1 #3 dose- (if needed)- 4-6 months after dose #1 WHAT ARE THE RISKS FROM HEPATITIS B VACCINE? Hepatitis B vaccine is one of the safest vaccines. Getting the disease is much more likely to causeserious illness than getting the vaccine. MILD PROBLEMS: - soreness where the shot was given. - mild to moderate fever Acetaminophen or Ibuprofen (not aspirin) may be used to reduce fever and pain. SEVERE PROBLEMS: - serious allergic reaction is very rare. WHAT TO DO IF THERE IS A SERIOUS REACTION: - Call a doctor or get the person to a doctor right away. - Ask your doctor, nurse, or health department to file a Vaccine Adverse Event Report form. To filea report yourself you can call: (toll-free) LET YOUR DOCTOR KNOW IMMEDIATELY IF YOU HAVE DIFFICULTY BREATHING OR SWALLOWING, EXPERIENCE ITCHING OF FEET OR HANDS, HAVE SWELLING OF EYES, FACE OR INSIDE OF NOSE. documented in this encounter Progress Notes * Marcelle Landa MD - 04/29/2024 11:36 AM EDT Subjective Angelina Ballard is a 73 year old female. Chief Complaint Patient presents with Hospital Follow-Up Pt here today for hospital discharge follow up Hospital Follow-Up HPI: Here for hospital f/u Admission apr 20 Discharge Apr 24 Dx : AMS, acute respiratory failure due to PNA Feels slightly better but still very tired Some coughing again Given flutter Advised to keep neb with flutter and spirometer Taking all her meds for allergy too Known liver cirrhosis , juan- will f/u BMP If kidney function is stable, will resume spironolactone Some leg swelling, chronic , usually worse lt leg Taking torsemide Chronic cystitis, mejia cath, taking med F/u with urology Was given hep B vaccine about 10 yrs ago due to her known cirrhosis Type 2 DM, insulin, lantus bid and ozempic Her recent hba1c was 5.9 Will decrease lantus to 30 bid Keep other med Diet PMH: Patient Active Problem List Diagnosis Gastroesophageal reflux disease without esophagitis S/P angioplasty with stent Dyslipidemia, goal LDL below 70 Hypothyroidism GONZALEZ (nonalcoholic steatohepatitis) Bipolar I disorder, most recent episode depressed, moderate (HCC) HTN, goal below 130/80 MEDICATION USE AGREEMENT Qxqrlrp-Wrnce-Lohko disease Anxiety Fatty liver Chronic liver disease and cirrhosis (HCC) Moderate aortic stenosis Diabetic gastroparesis (HCC) alf (current) use of insulin (HCC) Urge incontinence Type 2 diabetes mellitus with diabetic neuropathy, with long-term current use of insulin (HCC) Type 2 diabetes mellitus with stage 3a chronic kidney disease, with long-term current use of insulin (HCC) Coronary artery disease involving tuscarora coronary artery of tuscarora heart without angina pectoris Seasonal allergies 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) Medical home patient encounter Allergic rhinitis Chronic kidney disease, stage 3a (HCC) COPD, group B, by GOLD 2017 classification ([facility]) Suprapubic catheter (HCC) Recurrent UTI Pelvic pain Current Outpatient Medications Medication Sig Dispense Refill [...] 1 Kit 0 Blood Glucose Monitoring Suppl (Zilyo VERIO) w/Device KIT Use as directed. Use as directed. 1 Kit 0 Spacer/Aero-Holding Chambers WISAM Use with inhaler. Wheezing/bronchitis. 1 Device 0 Lancet Devices (Zilyo DELBrightFarms LANCING DEV) MISC Use four times a [...] as needed Home fpc visit for obtaining [facility] urine sample for 06/25/23. 1 Each 1 [...] in 15 minutes 25 Tablet 5 Nystatin 387396 UNIT/GM External Powder (Nystop) Apply topically to affected area 3 times a day. Apply to right breast until rash resolved. 30 g 0 Vitamin D (Ergocalciferol) 1.25 MG (56611 UT) Oral Capsule (Drisdol) TAKE 1 CAPSULE [...] morning. Excedrin Migraine 250-250-65 MG Oral Tablet (Pnndtrz-Pisdawulxtdvx-Jjmvchot 250-250-65 mg per tab) Take 1 Tablet by mouth every 6 hours as needed. Acetaminophen 500 MG Oral Tablet (Tylenol) Take 1 Tablet by mouth every 6 hours as needed. guaiFENesin ER 600 MG Oral Tablet Extended Release 12 Hour (Mucinex) Take 1 Tablet by mouth in the morning and 1 Tablet before bedtime. oxyBUTYnin Chloride ER 10 MG Oral Tablet [...] MOUTHONCE DAILY with dinner 90 Tablet 3 Ozempic (2 MG/DOSE) 8 MG/3ML Subcutaneous Solution Pen-injector (Semaglutide (2 MG/DOSE)) Inject 2 mg subcutaneous once per week 3 mL 5 Xifaxan 550 MG Oral Tablet (rifAXIMin) take 1 tablet by mouth twice daily 60 Tablet 5 Ondansetron HCl 8 MG Oral Tablet (Zofran) TAKE 1 TABLET BY MOUTH EVERY 8 HOURS NEEDED FOR [id number] Tablet 5 Pantoprazole Sodium 40 MG Oral Tablet Delayed Release (Protonix) TAKE 1 TABLET BY MOUTH TWICE DAILYevery morning and every evening 180 Tablet 1 Levothyroxine Sodium 88 MCG Oral Tablet (Levoxyl) TAKE 1 TABLET BY MOUTH ONCE DAILY AT LEAST 30 MINUTES BEFORE BREAKFAST AND OTHER MEDICATIONS 90 Tablet 1 Vo[employer] In Vitro Strip (Glucose Blood) use to [...] 100 MG Oral Tablet (Effexor) 1 Tablet. Tamsulosin HCl 0.4 MG Oral Capsule (Flomax) [...] THREE TIMES DAILY 90 Tablet 0 Nystatin 738061 UNIT/ML Mouth/Throat Suspension SWISH AND SWALLOW 5ML IN THE MORNING AND 5ML AT NOON AND 5 ML IN THE EVENING AND 5ML BEFORE BEDTIME, FOR THRUSH 240 mL 1 Ferrous Sulfate 325 (65 Fe) MG Oral Tablet Delayed Release Take 1 Tablet by mouth. BD Pen Needle Mini U/F 31G X 5 MM (Insulin Pen Needle) use twice a day 200 Each 2 Spironolactone 50 MG Oral Tablet (Aldactone) TAKE ONE TABLET BY MOUTH IN THE MORNING AND ONE TABLETBEFORE BEDTIME (Patient not taking: Reported on 04/27/2024) 180 Tablet 1 No current facility-administered medications for this visit. Past Medical History: Diagnosis Date ASCVD (arteriosclerotic cardiovascular disease) Bipolar 1 disorder (HCC) Sees Dr. Cooper Fsrednk-Fyabu-Mpeou disease Bilateral lower legs - pt is extremely weak - minimal wt bearing tolerated Chronic coronary artery disease CHRONIC UTI (Klebsiella) 02/04/2005 referred to Urology. Diabetic gastroparesis (HCC) 04/28/2019 DM type 2, goal A1c below 7 05/04/2004 diet controlled, 03/07/05 hgba1c 5.4 Dyslipidemia, goal LDL below 160 HTN, goal to be determined Hypothyroidism Morbid obesity, BMI not known ([facility]) 05/25/[address] Portillo 04/10. GONZALEZ (nonalcoholic steatohepatitis) OCD (obsessive compulsive disorder) Sees Dr. Cooper Pelvic pain 03/27/2021 Phlebitis and thrombophlebitis PONV (postoperative nausea and vomiting) Recurrent UTI 10/07/2021 Seasonal allergies 11/15/2021 Past Surgical History: Procedure Laterality Date ANESTHESIA, HEART CATHETERIZATION 06/04/12 at [facility] ARTHROPLASTY KNEE TOTAL right BLADDER ASPIRATION BY SUPRAPUBIC CATH N/A 04/08/2024 ASPIRATION OF BLADDER BY INSERTION OF SUPRAPUBIC CATHETER performed by Alfredo Panda MD [facility] CABG, ARTERIAL, SINGLE 02/15/2011 CORONARY ARTERY BYPASS GRAFT USING ARTERY 1 GRAFT performed by TIERNEY GUERREOR at [facility] CATHETERIZE LEFT HEART THRU SKIN 04/11/2009 LEFT HEART CATH, PERCUTANEOUS performed by GINGER FISHER at [facility] CATHETERIZE LEFT HEART THRU SKIN 02/01/2010 LEFT HEART CATH, PERCUTANEOUS performed by ALTHEA MANNING at [facility] CATHETERIZE LEFT HEART THRU SKIN 04/03/2010 LEFT HEART CATH, PERCUTANEOUS performed by GARCIA SOSA at [facility] COLONOSCOPY, DIAGNOSTIC (RECTUM) 05/20/2014 normal, repeat 10 yrs/done @ [facility] CORONARY ANGIOGRAPHY W/LEFT HEART CATH 10/29/2010 CORONARY ANGIOGRAPHY W/LEFT HEART CATH performed by ANNIE SEVILLA at [facility] CYSTOSCOPY N/A 04/08/2024 CYSTOURETHROSCOPY performed by Alfredo Panda MD at [facility] EGD, FLEXIBLE, DIAGNOSTIC 12/05/2017 portal hypertensive gastropathy/[facility] EGD, FLEXIBLE, DIAGNOSTIC 10/25/2022 retained food / ESOPHAGOGASTRODUODENOSCOPY (EGD), FLEXIBLE, TRANSORAL, DIAGNOSTIC performed by Raghavendra Medrano MD at [facility] EGD, W/ENDOSCOPIC US 06/26/2011 UPPER GI ENDOSCOPY ENDOSCOPIC ULTRASOUND performed by RACHEL BAHENA at ENDOSCOPY [facility] INFORMATION 2021 L hip surgery. partial hip INFORMATION Left 2022 femur fx - hardware OTHER nerve biopsy right calf REMOVAL OF APPENDIX REMOVE ADDED SPINE LAMINA, 1 SEG 07/2007 Dr. Saleem L4-L5 REMOVE GALLBLADDER SURGICAL DRAINAGE OF BLADDER N/A 12/31/2023 CYSTOSTOMY WITH DRAINAGE OF BLADDER performed by Alfredo Panda MD at OR [facility] TOTAL ABD HYSTERECTOMY W/WO REMOVAL [...] Stability Do you currently live in a [place] [facility] care facility or have no steady place to sleep [...] file Review of Systems Constitutional: Positive for activity change and fatigue. Negative for appetite change, chills, diaphoresis, fever and unexpected weight change. HENT: Positive for congestion, postnasal drip and rhinorrhea. Eyes: Negative for visual disturbance. Respiratory: Positive for cough and chest tightness. Negative for shortness of breath and wheezing. Cardiovascular: Positive for leg swelling. Negative for chest pain and palpitations. Gastrointestinal: Negative for abdominal distention and abdominal pain. Endocrine: Negative. Genitourinary: Positive for difficulty urinating (mejia cath). Negative for dysuria and hematuria. Musculoskeletal: Positive for arthralgias and gait problem. Skin: Negative for rash. Allergic/Immunologic: Positive for environmental allergies and immunocompromised state. Neurological: Positive for weakness (generalized). Negative for dizziness, tremors, seizures and light-headedness. Psychiatric/Behavioral: Positive for dysphoric mood and sleep disturbance. Negative for agitation and behavioral problems. The patient is nervous/anxious. Objective BP 130/72 | Pulse 81 | Temp 36.4 C (97.5 F) (Tympanic) | Resp 18 | Wt 108 kg (238 lb) | SpO2 95% | BMI 36.19 kg/m | BSA 2.28 m Physical Exam Constitutional: General: She is not in acute distress. Appearance: Normal appearance. She is obese. She is not ill-appearing, toxic- appearing or diaphoretic. HENT: Head: Normocephalic and atraumatic. Nose: Nose normal. No congestion. Eyes: Extraocular Movements: Extraocular movements intact. Cardiovascular: Rate and Rhythm: Normal rate and regular rhythm. Pulses: Normal pulses. Heart sounds: Normal heart sounds. Pulmonary: Effort: Pulmonary effort is normal. No respiratory distress. Breath sounds: Normal breath sounds. No stridor. No wheezing, rhonchi or rales. Chest: Chest wall: No tenderness. Musculoskeletal: General: Tenderness present. Right lower leg: Edema present. Left lower leg: Edema present. Neurological: General: No focal deficit present. Mental Status: She is alert and oriented to person, place, and time. Cranial Nerves: No cranial nerve deficit. Gait: Gait abnormal. Psychiatric: Behavior: Behavior normal. ASSESSMENT/PLAN: Pneumonia of right upper lobe due to infectious organism (Primary) - COMPREHENSIVE METABOLIC PANEL; Future; Expected date: 04/29/2024 - AMMONIA; Future; Expected date: 04/29/2024 - CBC WITH WBC DIFFERENTIAL; Future; Expected date: 04/29/2024 - MAGNESIUM; Future; Expected date: 04/29/2024 - DURABLE MEDICAL EQUIPMENT Vaccine for viral hepatitis Type 2 diabetes mellitus with stage 3a chronic kidney disease, with long-term current use of insulin (HCC) - TELEMEDICINE DIABETIC EYE GONZALEZ (nonalcoholic steatohepatitis) - AMMONIA; Future; Expected date: 04/29/2024 COPD, group B, by GOLD 2017 classification (HCC) Chronic liver disease and cirrhosis (HCC) - AMMONIA; Future; Expected date: 04/29/2024 Allergic rhinitis, unspecified seasonality, unspecified trigger Hospital discharge follow-up - DISCH MED RECON CUR MED LIS Check-out note: Follow-up 1 month HepB nurse appt Chest PT - neb, flutter, spirometer Cont meds F/u blood tests Spironolactone ? Marcelle Landa MD * Pinky Perry LPN - 04/29/2024 11:34 AM EDT Images from the original note were not included. The importance of having a yearly diabetic eye exam has been discussed with patient. Order and/or Referral placed along with patient instructions. Provider made aware. Pinky Perry LPN Diabetic Retinopathy: Evaluating Your Eyes Diabetic retinopathy is a condition that happens when diabetes damages blood vessels in the rear ofthe eye. It can lead to vision loss. To help catch it early, have a complete dilated eye exam at least once a year. During the exam, the eye healthcare provider will review your medical history, examine your eyes, and check your vision. Women who are and have pre-existing type 1 or type 2 diabetes have an increased risk of retinopathy. Women with diabetes should have an eye exam before or in the first trimester. They should continue to be monitored every trimester and for 1 year after delivery, depending on the severity of the retinopathy. The retina is the light-sensitive part of the eye that allows you to see. High blood sugar can damage blood vessels of the retina and cause them to leak or bleed. This damage can lead to abnormal blood vessel growth. This condition is called diabetic retinopathy. You may not have symptoms early in the disease. Later, there may be floaters, blurred vision, or poor night vision. There may also be partial or complete vision loss. Early cases of diabetic retinopathy can be treated by carefully controlling blood sugar, blood pressure, and cholesterol. Surgery or laser treatments may help restore lost vision. Laser surgery can shrink abnormal blood vessels or close ones that are leaking. Medicines injected in the eye can help decrease swelling of the retina. Home care Take all medicines, including insulin or oral diabetic medicine, exactly as prescribed. Follow the diet advised by your healthcare provider. If you have high cholesterol, follow a low-fat, low-cholesterol diet. Monitor blood sugars as advised. Try to achieve your ideal weight. If you smoke, quit smoking. Tobacco use worsens the effect of diabetes on your blood vessels. If you have high blood pressure, consider buying an automatic blood pressure machine. These are available at most pharmacies. Use this to monitor your blood pressure. Report your blood pressure readings to your healthcare provider. Exercise regularly. Follow-up care Follow up with your healthcare provider, or as advised. You must have a complete eye exam at least once a year, more often if needed. Untreated diabetic retinopathy can lead to complete loss of vision. Occupational therapists can help you adapt to any vision loss you have, including learning techniques to safely administer insulin. When to seek medical advice Call your healthcare provider right away if any of these occur. Increasing blurriness or any sudden changes in your vision Sudden flashes of light inside your eye New floaters (small dots or strings that seem to be moving across your field of vision) Eye pain, redness, or discharge from your eyelid New dark spots appearing in your field of vision Halos around lights Dimness of vision Partial or complete loss of vision Women with diabetes should have a complete eye exam before becoming , or as soon as possible when they find out they are . Retinopathy sometimes worsens during . Your eye exam Your eye healthcare provider uses an eye chart and other tools to check your vision. Then he or sheexamines your eyes for signs of disease. You are given eye drops to widen (dilate) your pupils. Youmay have one or more of the following tests: Tonometry to measure fluid pressure inside the eye. Slit lamp exam to allow the healthcare provider to view the structures of your eye. Ultrasound to create an image of the eye using sound waves. Ultrasound may be used if blood is found in the clear gel that fills the eye (vitreous). Ocular coherence tomography (OCT) to create an image of the retina using light waves. This shows ifthere is fluid leaking into certain parts of the eye. It can also measure the thickness of the retina. Fluorescein angiography This test may be done to check the health of the inside lining of the eye (retina). It also checks the tiny blood vessels (capillaries) that carry blood to the retina. During the test: Photographs are taken of the retina. A dye is then injected into the bloodstream through the arm or hand. The dye travels to the capillaries in the eye. More photographs are taken of the retina. The dye causes the capillaries to stand out on the photographs. You may feel brief nausea during the procedure. For a few hours after the test, your skin, eyes, and urine may appear yellow. Talk with your healthcare provider for more information about this test. Date Last Reviewed: 12/06/201519994654-5073 [employer]. [address] [place] [address]. All rights reserved. This information is not intended as a substitute for professional medical care. Always follow your healthcare professional's instructions. documented in this encounter Nursing Notes * Pinky Perry LPN - 04/29/2024 11:20 AM EDT Chief Complaint Patient presents with Hospital Follow-Up Pt here today for hospital discharge follow up documented in this encounter Plan of Treatment Upcoming Encounters Date Type Department Care Team (Late st Contact Info) Description 05/03/2024 2:00 PM EDT Procedure Only Urology, [facility] [address] [address] Alfredo Panda MD [address] [id number] 05/11/2024 4:00 PM EST [facility] Visit [facility] at Home, [facility] [address] [place] [address] Al Doyle, KAT [address] [place] [address] 05/27/2024 10:30 AM EST Scheduled Telephone [facility], [facility] [address] [facility] [address] Jesusita Saenz RDN [address] [facility] [place] [address] 06/08/2024 6:00 PM EST Office Visit [facility] [address] [place] [address] Brian Domínguez MD [address] [place] [address] 06/23/2024 11:45 AM EST Office Visit Urology, [facility] [address] [place] [address] Alfredo Panda MD [address] [address] Pending Results Name Type Priority Associated Diagnoses Date /Time COMPREHENSIVE METABOLIC PANEL Lab Routine Pneumonia of right upper lobe due to infectious organism 04/29/2024 12:12 PM EDT AMMONIA Lab Routine GONZALEZ (nonalcoholic steatohepatitis) Chronic liver disease and cirrhosis (HCC) Pneumonia of right upper lobe due to infectious organism 04/29/2024 12:12 PM EDT CBC WITH WBC DIFFERENTIAL Lab Routine Pneumonia of right upper lobe due to infectious organism 04/29/2024 12:12 PM EDT MAGNESIUM Lab Routine Pneumonia of right upper lobe due to infectious organism 04/29/2024 12:12 PM EDT Scheduled Orders Name Type Priority Associated Diagnoses Orde r Schedule COMPREHENSIVE METABOLIC PANEL Lab Routine Pneumonia of right upper lobe due to infectious organism Expected: 04/29/2024 (Approximate), Expires: 04/29/2025 AMMONIA Lab Routine GONZALEZ (nonalcoholic steatohepatitis) Chronic liver disease and cirrhosis (HCC) Pneumonia of right upper lobe due to infectious organism Expected: 04/29/2024, Expires: 04/29/2025 CBC WITH WBC DIFFERENTIAL Lab Routine Pneumonia of right upper lobe due to infectious organism Expected: 04/29/2024 (Approximate), Expires: 04/29/2025 MAGNESIUM Lab Routine Pneumonia of right upper lobe due to infectious organism Expected: 04/29/2024 (Approximate), Expires: 04/29/2025 Scheduled Procedures Name Priority Associated Diagnoses Date/Ti [...] Additional history exists CKD PHOS USE SMARTSET 01269 10/24/202310/05, 02/18/2022, 02/17/2022, Additional history exists COVID-19 [...] Additional history exists CKD HGB USE SMARTSET 80111 02/18/202502/18, 02/19/2024, 12/11/2023, Additional history exists O2 [...] encounter Medical Devices Implanted Type Area Integration Architect Device Identifier Shelf Expiration Date Model / Serial / Lot Sut Steel 6 M654g - [id number] Implanted:Qty: 3 on 02/15/2011 at OR [facility] N/A: Chest DO NOT USE 01/15/2015 M654G / / [id number] Gaston Fuentesham 225-241 - [id number] Implanted:Qty: 1 on 02/15/2011 at OR [facility] N/A: Chest [employer] 225-241 / / [id number] Sut Steel 6 M654g - [id number] Implanted:Qty: 1 on 02/15/2011 at OR [facility] N/A: Chest DO NOT USE 07/21/2015 M654G / / [id number] documented as of this encounter Visit Diagnoses Diagnosis Pneumonia of right upper lobe due to infectious organism- Primary Vaccine for viral hepatitis Need for prophylactic vaccination and inoculation against viral hepatitis Type 2 diabetes mellitus with stage 3a chronic kidney disease, with long-term current use of insulin (HCC) GONZALEZ (nonalcoholic steatohepatitis) Other chronic nonalcoholic liver disease COPD, group B, by GOLD 2017 classification (HCC) Chronic liver disease and cirrhosis (HCC) Unspecified chronic liver disease without mention of alcohol Allergic rhinitis, unspecified seasonality, unspecified trigger Hospital discharge follow-up Other follow-up examination documented in this encounter Advance Directives Documents on File Type Date Recorded Patient Tool Technician Expl anation POLST 05/06/2018 POLST * [...] Name Relationship Healthcare Agent [facility] Candie Ballard Adult Child Health Care Agent Care Teams Lay Out And Detail Drafter Relationship Specialty Start Date End Date Brian Domínguez MD [address] [place] [address] PCP - General Family Medicine 07/16/17 documented as of this encounter
--- OUTSIDE RECORDS SUMMARY | 2024-05-24 16:58 | External Medical Summary | Summary of Care ---
Author Name Unknown Organization [facility] Address [address] [place] [address] Phone [phone] Care Team Providers Care Independent Distributor Name Role Phone Brian Domínguez MD Primary Care Provider [phone]- [phone] Reason for Visit * Reason Onset Date Comments Hospital Follow-Up Pt here today for hospital discharge follow up Hospital Follow-Up 04/29/2024 Encounter Details Date Type Department Care Team (Latest Contact Info) Description 04/29/2024 11:20 AM EDT Office Visit [facility] [address] [place] [address] Marcelle Landa MD [address] [place] [address] Pneumonia of right upper lobe [...] Status venlafaxine XR (EFFEXOR XR) 150 MG [id number]:De pression Take 1 Cap by mouth daily. With food. 30 Cap 5 09/02/19 17 Active Additional Information Patient taking differently: 225 mgOral Daily(AM),Taking a total of 225 mg, Indications: Takes 225 mg total every morning with food (150 mg tab + 75 mg tab), Reported on 03/03/2023 Blood Glucose Monitoring Suppl ([employer] GLUCOMETER) w/Device KITIndications:Unc ontrolled type 2 diabetes mellitus without complication, without long-term current use of insulin Use as directed. Use as directed once daily 1 Kit 11/19/19 18 Active Blood Glucose Monitoring Suppl ([facility] VERIO) w/Device KIT Use as directed. Use as directed. 1 Kit 11/01/19 19 Active Spacer/Aero-Holdin g Chambers WISAM Use with inhaler. Wheezing/bronchiti s. 1 Device 04/08/20 19 Active Lancet Devices ([employer] GroupTOUCH DELICA LANCING DEV) MISC Use four [...] 25 Tablet 5 10/16/19 24 Active Nystatin 668781 UNIT/GM External Powder (Nystop)Indication s:Candidal intertrigo Apply topically to affected area 3 times a day. Apply to right breast until rash resolved. 30 g 10/16/19 24 Active Vitamin D (Ergocalciferol) 1.25 MG (12878 UT) Oral Capsule (Drisdol)Indicatio ns:Vitamin D deficiency [...] Oral Tablet (Demadex)Indicatio ns:Atherosclerotic heart disease of [place] [...] DAILY 90 Tablet 04/26/20 24 Active Nystatin 031613 UNIT/ML Mouth/Throat Suspension SWISH AND SWALLOW 5ML IN THE MORNING AND 5ML AT NOON AND 5 ML IN THE EVENING AND 5ML BEFORE BEDTIME, FOR THRUSH 240 mL 1 04/26/20 24 Active Ferrous Sulfate 325 (65 Fe) MG Oral Tablet Delayed Release Take 1 Tablet by mouth. 04/27/20 24 Active oxyBUTYnin Chloride ER 10 MG Oral Tablet Extended Release 24 Hour (Ditropan XL) TAKE 1 TABLET BY MOUTH EVERY MORNING 90 Tablet 3 12/04/19 24 024 Discontinued Tamsulosin HCl 0.4 MG Oral Capsule (Flomax) TAKE 1 CAPSULE BY MOUTH EVERY MORNING 90 Capsule 04/08/20 24 024 Discontinued Sulfamethoxazole-T rimethoprim 800-160 MG Oral Tablet (Bactrim [...] encounter 01/06/2023 Coronary artery disease invo lving [place] coronary artery of [place] heart without angina pectoris 11/15/2021 Last Assessment [...] at goal, continue same Urge incontinence 03/27/2021 USP (current) use of [...] 05/04/2004 Overview: Updated due to amp error Jzumdze-Oxcyl-Ndyov disease 12/31/2002 Last Assessment & Plan: Frequent [...] giving this. Pt also to see uro-maintenance painter apprentice and ID Acute cystitis without hematuria [...] stenosis 10/31/2010 08/28/2018 Acute coronary syndrome 10/30/201001/04 [employer] Other*[id number] 02/02/2010 04/18/2014 Overview: Karen Registry, Dr Althea [...] HTN, goal below 130/80 MEDICATION USE AGREEMENT Lvycydx-Sqsol-Bcyqa disease Anxiety Fatty liver Chronic liver disease and cirrhosis (HCC) Moderate aortic stenosis Diabetic gastroparesis (HCC) USP (current) use of insulin (HCC) Urge incontinence Type 2 diabetes mellitus with diabetic neuropathy, with long-term current use of insulin (HCC) Type 2 diabetes mellitus with stage 3a chronic kidney disease, with long-term current use of insulin (HCC) Coronary artery disease involving [place] coronary artery of [place] heart without angina pectoris Seasonal allergies 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) Medical home patient encounter Allergic rhinitis Chronic kidney disease, stage 3a (HCC) COPD, group B, by GOLD 2017 classification ([facility]) Suprapubic catheter ([facility]) Recurrent UTI Pelvic pain Current Outpatient Medications [...] 1 Kit 0 Blood Glucose Monitoring Suppl ([facility] VERIO) w/Device KIT Use as directed. Use as directed. 1 Kit 0 Spacer/Aero-Holding Chambers WISAM Use with inhaler. Wheezing/bronchitis. 1 Device 0 Lancet Devices ([facility] DELMantis Vision LANCING DEV) MISC Use four times a [...] as needed Home fpc visit for obtaining [facility] urine sample for 06/25/23. 1 [...] in 15 minutes 25 Tablet 5 Nystatin 710015 UNIT/GM External Powder (Nystop) Apply topically to affected area 3 times a day. Apply to right breast until rash resolved. 30 g 0 Vitamin D (Ergocalciferol) 1.25 MG (63624 UT) Oral Capsule (Drisdol) TAKE 1 CAPSULE [...] morning. Excedrin Migraine 250-250-65 MG Oral Tablet (Gkgrvlk-Qlaqqcjdvulmo-Xlolhplu 250-250-65 mg per tab) Take 1 Tablet [...] BY MOUTH EVERY 8 HOURS NEEDED FOR DALWRR73 Tablet 5 Pantoprazole Sodium 40 MG Oral Tablet Delayed Release (Protonix) TAKE 1 TABLET BY MOUTH TWICE DAILYevery morning and every evening 180 Tablet 1 Levothyroxine Sodium 88 MCG Oral Tablet (Levoxyl) TAKE 1 TABLET BY MOUTH ONCE DAILY AT LEAST 30 MINUTES BEFORE BREAKFAST AND OTHER MEDICATIONS 90 Tablet 1 [employer] In Vitro Strip (Glucose Blood) use to [...] THREE TIMES DAILY 90 Tablet 0 Nystatin 751152 UNIT/ML Mouth/Throat Suspension SWISH AND SWALLOW 5ML [...] Bipolar 1 disorder (HCC) Sees Dr. Cooper Tbtkxng-Utmae-Vkkkj disease Bilateral lower legs - pt is extremely weak - minimal wt bearing tolerated Chronic coronary artery disease CHRONIC UTI (Klebsiella) 02/04/2005 referred to Urology. Diabetic gastroparesis (HCC) 04/28/2019 DM type 2, goal A1c below 7 05/04/2004 diet controlled, 03/07/05 hgba1c 5.4 Dyslipidemia, goal LDL below 160 HTN, goal to be determined Hypothyroidism Morbid obesity, BMI not known ([facility]) 05/25/[address] Portillo 04/10. GONZALEZ (nonalcoholic steatohepatitis) OCD (obsessive compulsive disorder) Sees Dr. Cooper Pelvic pain 03/27/2021 Phlebitis and thrombophlebitis PONV (postoperative nausea and vomiting) Recurrent UTI 10/07/2021 Seasonal allergies 11/15/2021 Past Surgical History: Procedure Laterality Date ANESTHESIA, HEART CATHETERIZATION 06/04/12 at [facility] ARTHROPLASTY KNEE TOTAL right BLADDER ASPIRATION BY SUPRAPUBIC CATH N/A 04/08/2024 ASPIRATION OF BLADDER BY INSERTION OF SUPRAPUBIC CATHETER performed by Alfredo Panda MD atOR [facility] CABG, ARTERIAL, SINGLE 02/15/2011 CORONARY ARTERY BYPASS GRAFT USING ARTERY 1 GRAFT performed by TIERNEY GUERRERO at OR [facility] CATHETERIZE LEFT HEART THRU SKIN 04/11/2009 LEFT HEART CATH, PERCUTANEOUS performed by GINGER FISHER at [facility] CATHETERIZE LEFT HEART THRU SKIN 02/01/2010 LEFT HEART CATH, PERCUTANEOUS performed by ALTHEA MANNING at [facility] CATHETERIZE LEFT HEART THRU SKIN 04/03/2010 LEFT HEART CATH, PERCUTANEOUS performed by GARCIA SOSA at [facility] COLONOSCOPY, DIAGNOSTIC (RECTUM) 05/20/2014 normal, repeat 10 yrs/done @ [facility] CORONARY ANGIOGRAPHY W/LEFT HEART CATH 10/29/2010 CORONARY ANGIOGRAPHY W/LEFT HEART CATH performed by ANNIE SEVILLA at [facility] CYSTOSCOPY N/A 04/08/2024 CYSTOURETHROSCOPY performed by Alfredo Panda MD at OR [facility] EGD, FLEXIBLE, DIAGNOSTIC 12/05/2017 portal hypertensive gastropathy/[facility] EGD, FLEXIBLE, DIAGNOSTIC 10/25/2022 retained food / ESOPHAGOGASTRODUODENOSCOPY (EGD), FLEXIBLE, TRANSORAL, DIAGNOSTIC performed by Raghavendra Medrano MD at ENDOSCOPY [facility] EGD, W/ENDOSCOPIC US 06/26/2011 UPPER GI ENDOSCOPY ENDOSCOPIC ULTRASOUND performed by RACHEL BAHENA at ENDOSCOPY [facility] INFORMATION 2021 L hip surgery. partial hip [...] Stability Do you currently live in a mcfp or have no steady place to sleep [...] information about this test. Date Last Reviewed: 12/06/201519996727-9461 [employer]. [address] [place] [address]. All rights reserved. This information is not intended as a substitute for professional medical care. Always follow your healthcare professional's instructions. documented in this encounter Nursing Notes * Pinky Perry LPN - 04/29/2024 11:20 AM EDT Chief Complaint Patient presents with Hospital Follow-Up Pt here today for hospital discharge follow up documented in this encounter Miscellaneous Notes * Addendum Note - Alysha Elizondo OSA - 05/04/2024 8:54 AM EDTAddended by: ALYSHA ELIZONDO on: 05/04/2024 08:54 AM Modules accepted: Orders documented in this encounter Plan of Treatment Upcoming Encounters Date Type Department Care Team (Late st Contact Info) Description 05/11/2024 4:00 PM EST Home Visit [facility], [facility] [address] [facility] [place] [address] Al Doyle, RN [address] [facility] [place] [address] 05/24/2024 3:40 PM EST Office Visit Nephrology, [address] [place] [address] Maurilio Smith MD [address] [place] [address] [place] [address] 05/27/2024 10:30 AM EST Scheduled Telephone [facility], [facility] [address] [facility] [place] [address] Jesusita Saenz, KELLYN [address] [facility] [place] [address] 06/08/2024 6:00 PM EST Office Visit Family [facility] [address] [place] [phone] Brian Domínguez MD [address] [place] [address] 06/23/2024 11:45 AM EST Office Visit Urology, [facility] [address] [facility] [place] [address] Alfredo Panda MD [place] [address] Scheduled Procedures Name Priority Associated Diagnoses Date/Ti [...] Additional history exists CKD PHOS USE SMARTSET 69030 10/24/202310/05, 02/18/2022, 02/17/2022, Additional history exists COVID-19 [...] COPD 04/08/2025 04/08/2024 CKD HGB USE SMARTSET 62865 04/29/202504/29, 04/29/2024, 02/19/2024, Additional history exists DTap/Tdap [...] this encounter Medical Devices Implanted Type Area Warehouse Traffic Supervisor Device Identifier Shelf Expiration Date Model / Serial / Lot Sut Steel 6 M654g - [id number] Implanted:Qty: 3 on 02/15/2011 at OR [facility] N/A: Chest DO NOT USE 01/15/2015 M654G / / [id number] Band Magdy 225-241 - [id number] Implanted:Qty: 1 on 02/15/2011 at OR [facility] N/A: Chest [employer] 225-241 / / [id number] Sut Steel 6 M654g - [id number] Implanted:Qty: 1 on 02/15/2011 at OR [facility] N/A: Chest DO NOT USE 07/21/2015 M654G / / [id number] documented as of this encounter Results * AMMONIA (05/03/2024 3:06 PM EDT) Pathologist [facility] Ammonia 30 11 - 35 umol/L 05/03/2024 10:43 PM EDT LABORATORY [facility] Blood Venous blood specimen / Unknown Venipuncture / Unknown 05/03/2024 3:06 PM EDT 05/03/2024 3:06 PM EDT Marcelle Landa MD LAB BLOOD ORDERABLES LABORATORY [facility] [address] [place] [address] * MAGNESIUM (04/29/2024 12:12 PM EDT) Pathologist [facility] Magnesium 1.8 1.5 - 2.6 mg/dL 04/29/2024 11:03 PM EDT LABORATORY [facility] Blood Venous blood specimen / Unknown Venipuncture / Unknown 04/29/2024 12:12 PM EDT 04/29/2024 12:12 PM EDT Marcelle Landa MD LAB BLOOD ORDERABLES LABORATORY [facility] [address] [place] [address] * (ABNORMAL) COMPREHENSIVE METABOLIC PANEL (04/29/2024 12:12 PM EDT) BUN 21(H) 6 - 20 mg/dL 04/29/2024 11:03 PM EDT LABORATORY C CREATININE 1.1(H) 0.5 - 1.0 mg/dL 04/29/2024 11:03 PM EDT LABORATORY [facility] EGFR 51(L) >=60 mL/min 04/29/2024 11:03 PM EDT LAB[facility]ATORY [facility] Comment:eGFR is calculated b ased on the CKD-EPI 2020 equation. SODIUM 129(L) 135 - 146 mmol/L 04/29/2024 11:03 PM EDT [facility] POTASSIUM 3.7 3.5 - 5.1 mmol/L 04/29/2024 11:03 PM EDT [facility] CHLORIDE 89(L) 98 - 107 mmol/L 04/29/2024 11:03 PM EDT [facility] CO2 26 22 - 32 mmol/L 04/29/2024 11:03 PM EDT [facility] ANION GAP 14 7 - 15 mmol/L 04/29/2024 11:03 PM EDT [facility] GLUCOSE 253(H) 70 - 120 mg/dL 04/29/2024 11:03 PM EDT [facility] Albumin 4.2 3.8 - 5.0 g/dL 04/29/2024 11:03 PM EDT [facility] AST 22 10 - 35 U/L 04/29/2024 11:03 PM EDT [facility] Alkaline Phosphatase 139(H) 35 - 130 U/L 04/29/2024 11:03 PM EDT [facility] Bilirubin, Total 0.6 <=1.2 mg/dL 04/29/2024 11:03 PM EDT [facility] CALCIUM 9.4 8.4 - 10.2 mg/dL 04/29/2024 11:03 PM EDT [facility] Protein 6.5 6.0 - 8.3 g/dL 04/29/2024 11:03 PM EDT [facility] ALT 37(H) 10 - 35 U/L 04/29/2024 11:03 PM EDT [facility] Blood Venous blood specimen / Unknown Venipuncture / Unknown 04/29/2024 12:12 PM EDT 04/29/2024 12:12 PM EDT Marcelle Landa MD LAB BLOOD ORDERABLES [facility] [address] [place] [address] documented in this encounter Visit Diagnoses Diagnosis Pneumonia of [...] Documents on File Type Date Recorded Patient Criminal Justice Department Chair Expl anation POLST 05/06/2018 POLST * Full [...] Healthcare Agent [facility] Communication Carolyn Ballard Adult Child Health Care Agent Care Teams Independent Distributor Relationship Specialty Start Date End Date Brian Domínguez MD [address] [place] [address] PCP - General Family Medicine 07/16/17 documented as of this encounter
--- OUTSIDE RECORDS SUMMARY | 2024-05-24 16:58 | External Medical Summary | Summary of Care ---
Author Name Unknown Organization [facility] Address [address] [place] [facility] [place] [address] Phone [phone] Care Team Providers Care Jukebox Routeman Name Role Phone Brian Domínguez MD Primary Care Provider [phone]- [phone] Encounter Details Date Type Department Care Team (Late st Contact Info) Description 04/27/2024 4:00 PM EDT [facility] [address] [place] [address] Al Doyle, RN [address] [place] [address] Allergies Active Allergy Reactions Criticality Noted Date Comments Propoxyphene Hcl Rash Low 10/29/2010 Fentanyl Diarrhea Low 04/26/2010 anxiety Methocarbamol Medium 10/05/2020 Other reaction(s): Delirium Methocarbamol Low 04/15/2007 Zolpidem Low 10/05/2020 Other reaction(s): Confusion documented as of this encounter (statuses as of 04/29/2024) Medications Medication Sig Dispensed Refills Start Date End Date Status venlafaxine XR (EFFEXOR XR) 150 MG [id number]:De pression Take 1 Cap by mouth daily. [...] 11/19/19 18 Active Blood Glucose Monitoring Suppl (Knomo VERIO) w/Device KIT Use as directed. Use as directed. 1 Kit 11/01/19 19 Active Spacer/Aero-Holdin g Chambers WISAM Use with inhaler. Wheezing/bronchiti s. 1 Device 04/08/20 19 Active Lancet Devices (MetaJureUCH DELICA LANCING DEV) MISC Use four times [...] 25 Tablet 5 10/16/19 24 Active Nystatin 867909 UNIT/GM External Powder (Nystop)Indication s:Candidal intertrigo Apply topically to affected area 3 times a day. Apply to right breast until rash resolved. 30 g 10/16/19 24 Active Vitamin D (Ergocalciferol) 1.25 MG (13309 UT) Oral Capsule (Drisdol)Indicatio ns:Vitamin D deficiency [...] Oral Tablet (Demadex)Indicatio ns:Atherosclerotic heart disease of [place] coronary artery [...] MOUTH TWICE DAILY 60 Capsule 5 04/09/20 Active oxyCODONE-Acetamin ophen 5-325 MG Oral Tablet [...] MOUTH THREE TIMES DAILY 90 Tablet 04/26/20 Active Nystatin 652877 UNIT/ML Mouth/Throat Suspension SWISH AND SWALLOW 5ML IN THE MORNING AND 5ML AT NOON AND 5 ML IN THE EVENING AND 5ML BEFORE BEDTIME, FOR THRUSH 240 mL 1 04/26/20 Active Ferrous Sulfate 325 (65 Fe) MG Oral Tablet Delayed Release Take 1 Tablet by mouth. 04/27/20 Active Sulfamethoxazole-T rimethoprim 800-160 MG Oral Tablet [...] [place] heart without angina pectoris 11/15/2021 Last Assessment [...] 05/04/2004 Overview: Updated due to amp error Qudwgyr-Xmddm-Zxedf disease 12/31/2002 Last Assessment & Plan: Frequent [...] is giving this. Pt also to see uro-harbormaster and ID Acute cystitis without hematuria 03/27/2021 [...] stenosis 10/31/2010 08/28/2018 Acute coronary syndrome 10/30/201001/04 [place] [employer] Other*[id number] 02/02/2010 04/18/2014 Overview: Karen Registry, Dr Joel [...] s 01/20/2024 Does the household have a [facility] source of income? (Household - for [...] Reading Time Taken Comments Blood Pressure 130/72 04/27/2024 3:28 PM EDT Pulse 64 04/27/2024 3:28 PM EDT Temperature 37.2 C (98.9 F) 04/27/2024 3:28 PM ED T Respiratory Rate 18 04/27/2024 3:28 PM EDT Oxygen Saturation 95% 04/27/2024 3:28 PM EDT Inhaled Oxygen Concentration - - Weight - - Height - - Body Mass Index - - documented in this encounter Progress Notes * Al Doyle RN - 04/27/2024 3:00 PM EDT Images from the original note were not included. Current Concerns: Situation: Pt [facility] today [facility] for routine follow-up visit. Background: PMH includes: COPD, bipolar, liver cirrhosis, CAD, dyslipidemia, HTN, CHF, CKD3, hypothyroidism, IDDM, aortic stenosis Assessment: Admitted to [facility] 04/20-04/24 for AMS, Acute Hypoxic Respiratory Failure, Sepsis, Pneumonia Suprapubic catheter placed 04/08 Draining clear, yellow at time of visit Pt reports that when she coughs she is having episodes of incontinence, states that urine is exiting her urethra Pt reports that she began having cramps in her lower abdomen today Pt follows with Dr Panda at [facility] Urology Next appt 05/03 Suprapubic cath site free of redness, irritation, drainage, odor at time of visit Dressed with abd and tape Today pt denies issues or concerns Pt reports that she feels well overall Pt reports that she does continue to have an occasional cough Denies SOB, CP, fever, chills Physical Exam: Physical Exam Spa Manager/Esthetician present: Suprapubic cath in place. Cardiovascular: Rate and Rhythm: Normal rate and [...] and oriented to person, place, and time. Mental status is at baseline. Psychiatric: Mood and Affect: Mood normal. Behavior: Behavior normal. Review of Systems: Review of Systems Constitutional: Negative. Negative for chills and fever. HENT: Negative. Respiratory: Positive for cough. Negative for chest tightness and shortness of breath. Cardiovascular: Positive for leg swelling. Gastrointestinal: Negative. Genitourinary: Suprapubic cath in place Musculoskeletal: Positive for gait problem. Skin: Suprapubic cath site Psychiatric/Behavioral: Negative. Care Plan Goal Progress: Aseptic care of all invasive lines & tubes will be maintained. (Progressing) Start: 04/29/24 Expected End: 06/04/24 Patient will remain free from infection. (Progressing) Start: 04/29/24 Expected End: 06/04/24 Orders Placed: No orders of the defined types were placed in this encounter. Care Gaps: Care Gaps Care gaps closed this contact:: Education (04/29/241647) Type of education: Clinical/disease (04/29/241647) documented in this encounter Plan of Treatment Upcoming Encounters Date Type Department Care Team (Late st Contact Info) Description 05/03/2024 2:00 PM EDT Procedure Only Urology, [facility] [address] [facility] [place] [address] Alfredo Panda MD [address] [place] [address] 05/11/2024 4:00 PM EST [facility], [facility] [address] [facility] [place] [address] Al Doyle RN [address] [facility] [place] [address] 05/27/2024 10:30 AM EST Scheduled Telephone [facility], [facility] [address] [facility] [place] [address] Jesusita Saenz, MISSY [address] [place] [facility] [place] [address] 06/08/2024 6:00 PM EST Office Visit [facility] [address] [place] [address] Brian Domínguez MD [address] [place] [address] 06/23/2024 11:45 AM EST Office Visit Urology, [facility] [address] [facility] [place] [address] Alfredo Panda MD [address] [place] [address] Scheduled Procedures Name Priority Associated Diagnoses Date/Ti [...] Additional history exists CKD PHOS USE SMARTSET 64828 10/24/202310/05, 02/18/2022, 02/17/2022, Additional history exists COVID-19 [...] Additional history exists CKD HGB USE SMARTSET 65737 02/18/202502/18, 02/19/2024, 12/11/2023, Additional history exists O2 [...] this encounter Medical Devices Implanted Type Area Honey Blender Device Identifier Shelf Expiration Date Model / Serial / Lot Sut Steel 6 M654g - [id number] Implanted:Qty: 3 on 02/15/2011 at [place] [facility] [place] N/A: Chest DO NOT USE 01/15/2015 M654G / / [id number] Band Magdy 225-241 - [id number] Implanted:Qty: 1 on 02/15/2011 at OR [facility] [place] N/A: Chest [employer] 225-241 / / [id number] Sut Steel 6 M654g - [id number] Implanted:Qty: 1 on 02/15/2011 at OR [facility] [place] N/A: Chest DO NOT USE 07/21/2015 M654G / / [id number] documented as of this encounter Advance Directives Documents on File Type Date Recorded Patient Bedspread Cutter Hand Expl anation POLST 05/06/2018 POLST * [...] Adult Child Health Care Agent Care Teams Jukebox Routeman Relationship Specialty Start Date End Date Brian Domínguez MD [address] [place] [address] PCP - General Family Medicine 07/16/17 documented as of this encounter
--- OUTSIDE RECORDS SUMMARY | 2024-05-24 16:58 | External Medical Summary ---
Author Name Unknown Address Unknown Organization K01:[facility] [address] [place] [address] Laboratory Report Ordering Provider Test Date Status KARLA VALENTINO 05/03/2024 15:06:02 Final Observation Date Value Abnormality Reference (Units ) Status Ammonia 05/03/2024 15:06:02 30 11-35 (umo l/L) Final Performing Location [facility] [address] [place] [address]
--- OUTSIDE RECORDS SUMMARY | 2024-05-24 16:58 | External Medical Summary | Summary of Care ---
Author Name Unknown Organization [facility] Address [address] [place] [address] Phone [phone] Care Team Providers Care Filling Hand Name Role Phone Brian Domínguez MD Primary Care Provider [phone]- [phone] Reason for Visit * Reason Comments Outpatient Testing Encounter Details Date Type Department Care Team (Late st Contact Info) Description 05/03/2024 3:10 PM EDT Laboratory Laboratory, [facility] [address] [place] [id number] [facility] [address] [place] [address] Arrived Allergies Active Allergy Reactions Criticality Noted Date Comments Propoxyphene Hcl Rash Low 10/29/2010 Fentanyl Diarrhea Low 04/26/2010 anxiety Methocarbamol Medium 10/05/2020 Other reaction(s): Delirium Methocarbamol Low 04/15/2007 Zolpidem Low 10/05/2020 Other reaction(s): Confusion documented as of this encounter (statuses as of 05/03/2024) Medications Medication Sig Dispensed Refills Start Date End Date Status venlafaxine XR (EFFEXOR XR) 150 MG [id number]:Dep ression Take 1 Cap by mouth daily. [...] Kit 11/18/2017 Active Blood Glucose Monitoring Suppl (DITTO.comUCH VERIO) w/Device KIT Use as directed. Use as directed. 1 Kit 10/31/2018 Active Spacer/Aero-Holding Chambers WISAM Use with inhaler. Wheezing/bronchitis . 1 Device 04/08/2019 Active Lancet Devices (Blue SecurityTOUCH DELICA LANCING DEV) MISC Use four [...] minutes 25 Tablet 5 10/16/2023 Active Nystatin 493466 UNIT/GM External Powder (Nystop)Indications :Candidal intertrigo Apply topically to affected area 3 times a day. Apply to right breast until rash resolved. 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 ant icoagulant therapy [...] as of this encounter (statuses as of 05/03/2024) Immunizations Name Administration Dates Next Due COVID-19 [...] PM EST Home [facility], [facility] [address] [facility] [place] [address] Al Doyle, KAT [address] [facility] [place] [address] 05/24/2024 3:40 PM EST Office Visit Nephrology, [address] [place] [address] Maurilio Smith MD [address] [place] [address] [place] [address] 05/27/2024 10:30 AM EST Scheduled Telephone [facility], [facility] [address] [facility] [place] [address] Jesusita Saenz RDN [address] [facility] [place] [address] 06/08/2024 6:00 PM EST [facility] Visit [facility] [address] [facility] [phone] Brian Domínguez MD [address] [place] [address] 06/23/2024 11:45 AM EST Office Visit Urology, [facility] [address] [place] [address] Alfredo Panda MD [address] [place] [...] Additional history exists CKD PHOS USE SMARTSET 26983 10/24/202310/05, 02/18/2022, 02/17/2022, Additional history exists COVID-19 [...] COPD 04/08/2025 04/08/2024 CKD HGB USE SMARTSET 85698 04/29/202504/29, 04/29/2024, 02/19/2024, Additional history exists DTap/Tdap [...] this encounter Medical Devices Implanted Type Area Burial Agent Device Identifier Shelf Expiration Date Model / Serial / Lot Sut Steel 6 M654g - [id number] [place]planted:Q[place]: 3 on 02[place] [facility] [place]: Chest DO NOT USE 01/15/2015 M654G / / [id number] Band Magdy 225-241 - [id number] Implanted:Qty: 1 on 02/15/2011 [place] [facility] [place]A: Chest [employer] 225-241 / / [id number] Sut Steel 6 M654g - [id number] Implanted:Qty: 1 on 02/15/2011 [place] [facility] [place]A: Chest DO NOT USE 07/21/2015 M654G / / [id number] documented as of this encounter Advance Directives Documents on File Type Date Recorded 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
--- OUTSIDE RECORDS SUMMARY | 2024-05-24 16:58 | External Medical Summary | Summary of Care ---
Author Name Unknown Organization [facility] Address [address] [place] [address] Phone [phone] Care Team Providers Care Support Services Rep Name Role Phone Carmen Sifuentes MD Primary Care Provider [phone]- [phone] Encounter Details Date Type Department Care Team (Latest Contact Info) Description 05/03/2024 2:00 PM EDT Procedure Only Urology, [facility] [address] [facility] [place] [address] Alfredo Panda MD [address] [place] [id number] Suprapubic catheter (HCC)*; Pelvic pain Allergies Active Allergy Reactions Criticality Noted Date Comments Propoxyphene Hcl Rash Low 10/29/2010 Fentanyl Diarrhea Low 04/26/2010 anxiety Methocarbamol Medium 10/05/2020 Other reaction(s): Delirium Methocarbamol Low 04/15/2007 Zolpidem Low 10/05/2020 Other reaction(s): Confusion documented as of this encounter (statuses as of 05/03/2024) Medications Medication Sig Dispensed Refills Start Date End Date Status venlafaxine XR (EFFEXOR XR) 150 MG OK74Ergpxgjuhak:De pression Take 1 Cap by mouth daily. [...] 11/19/19 18 Active Blood Glucose Monitoring Suppl (PinchPoint VERIO) w/Device KIT Use as directed. Use as directed. 1 Kit 11/01/19 19 Active Spacer/Aero-Holdin g Chambers WISAM Use with inhaler. Wheezing/bronchiti s. 1 Device 04/08/20 19 Active Lancet Devices (WeAreHolidaysTOUCH DELICA LANCING DEV) MISC Use four times [...] 25 Tablet 5 10/16/19 24 Active Nystatin 809016 UNIT/GM External Powder (Nystop)Indication s:Candidal intertrigo Apply topically to affected area 3 times a day. Apply to right breast until rash resolved. 30 g 10/16/19 24 Active Vitamin D (Ergocalciferol) 1.25 MG (19383 UT) Oral Capsule (Drisdol)Indicatio ns:Vitamin D deficiency [...] Oral Tablet (Demadex)Indicatio ns:Atherosclerotic heart disease of nikolai coronary artery with other forms of angina [...] DAILY 90 Tablet 04/26/20 24 Active Nystatin 414205 UNIT/ML Mouth/Throat Suspension SWISH AND SWALLOW 5ML [...] morning. 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 Pt also to see uro-poultry trimmer and ID Acute cystitis without hematuria 03/27/2021 07/08/2022 Pelvic pain 03/27/2021 02/03/2024 Type 2 diabetes mellitus wit h diabetic neuropathy 09/07/2018 11/07/2023 Overview: duplicate Mild protein-calorie malnutrition 05/07/2018 04/29/2019 Diabetes mellitus with neuropathy 05/06/2018 09/07/2018 Other cirrhosis of liver 05/06/2018 Atherosclerotic heart diseas e of nikolai coronary artery with other forms of angina [...] 08/28/2018 Acute coronary syndrome 10/30/201001/04 [place] Research Other*[id number] 02/02/2010 04/18/2014 Overview: [place] [facility], Dr Althea CASAS Obesity, morbid (more [...] Duplicate Protocol #2. 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/2014 half-way current use of ant icoagulant therapy 06/17/2006 [...] Progress Notes * Alfredo Panda MD - 05/03/2024 2:56 PM EDT [id number] PCP: CARMEN SIFUENTES [address] [place] [address] Angelina Ballard is a 73 year old female, who presents for cystoscopy for suprapubic tube exchange. Patient's past notes reviewed. Urinary Incontinence: Patient is being seen for urinary incontinence. Problem has been present for years. Severity is moderate. Problem is getting better. Urinary incontinence is urge incontinence. They were using 10-15 pads a day. They have used oxybutynin in the past, stopped. Trial of Myrbetriq provided without improvement. Suprapubic tube placed Dec. Malpositioned suprapubic tube found at exchange in office March of 2024. Suprapubic tube repositioned in OR April 2024. Recurrent UTI: Presented to Urology March 2021. On prophylactic Macrobid. Cystoscopy Oct 2021. Previously treated with fosfomycin. Renal US Apr 2021: IMPRESSION: Current Outpatient Medications Medication Sig Dispense Refill traMADol HCl 50 MG Oral Tablet (Ultram) Take 1 Tablet by mouth every 6 hours as needed for Pain, Severe. 10 Tablet 0 oxyBUTYnin Chloride ER 15 MG Oral Tablet Extended Release 24 Hour (Ditropan XL) Take 1 Tablet by mouth in the morning. 90 Tablet 3 venlafaxine XR (EFFEXOR XR) 150 MG CP24 Take 1 Cap by mouth daily. With food. (Patient taking differently: Take 225 mg by mouth in the morning. Taking a total of 225 mg.) 30 Cap 5 Blood Glucose Monitoring Suppl (D-CARE GLUCOMETER) w/Device KIT Use as directed. Use as directed once daily 1 Kit 0 Blood Glucose Monitoring Suppl (PinchPoint VERIO) w/Device KIT Use as directed. Use as directed. 1 Kit 0 Spacer/Aero-Holding Chambers WISAM Use with inhaler. Wheezing/bronchitis. 1 Device 0 Lancet Devices (Two TapUCH DELICA LANCING DEV) MISC Use four times [...] as needed [facility]iary visit for obtaining [facility] urine sample for 06/25/23. 1 Each 1 [...] in 15 minutes 25 Tablet 5 Nystatin 002400 UNIT/GM External Powder (Nystop) Apply topically to affected area 3 times a day. Apply to right breast until rash resolved. 30 g 0 Vitamin D (Ergocalciferol) 1.25 MG (01081 UT) Oral Capsule (Drisdol) TAKE 1 CAPSULE [...] morning. Excedrin Migraine 250-250-65 MG Oral Tablet (Qnjniiy-Jjamovvbbfsfw-Bfwpvujn 250-250-65 mg per tab) Take 1 Tablet [...] BY MOUTH EVERY 8 HOURS NEEDED FOR OFTHYZ36 Tablet 5 Pantoprazole Sodium 40 MG Oral Tablet Delayed Release (Protonix) TAKE 1 TABLET BY MOUTH TWICE DAILYevery morning and every evening 180 Tablet 1 Levothyroxine Sodium 88 MCG Oral Tablet (Levoxyl) TAKE 1 TABLET BY MOUTH ONCE DAILY AT LEAST 30 MINUTES BEFORE BREAKFAST AND OTHER MEDICATIONS 90 Tablet 1 .[employer] In Vitro Strip (Glucose Blood) use to test blood sugar 3 times daily 300 Strip 3 Metoprolol Succinate ER 25 MG Oral Tablet Extended Release 24 Hour (toPROL XL) Take 1 tab by mouth twice per day 180 Tablet 3 Calcium Carbonate-Vitamin D 600-10 MG-MCG Oral Tablet Take 1 by mouth per day 90 Tablet 3 Spironolactone 50 MG Oral Tablet (Aldactone) TAKE ONE TABLET BY MOUTH IN THE MORNING AND ONE TABLETBEFORE BEDTIME (Patient not taking: Reported on 04/27/2024) 180 Tablet 1 Torsemide 20 MG Oral Tablet (Demadex) [...] THREE TIMES DAILY 90 Tablet 0 Nystatin 032092 UNIT/ML Mouth/Throat Suspension SWISH AND SWALLOW 5ML IN THE MORNING AND 5ML AT NOON AND 5 ML IN THE EVENING AND 5ML BEFORE BEDTIME, FOR THRUSH 240 mL 1 Ferrous Sulfate 325 (65 Fe) MG Oral Tablet Delayed Release Take 1 Tablet by mouth. No current facility-administered medications for this visit. [...] Laterality Date ANESTHESIA, HEART CATHETERIZATION 06/04/12 at [facility] ARTHROPLASTY KNEE TOTAL right BLADDER ASPIRATION BY SUPRAPUBIC CATH N/A 04/08/2024 ASPIRATION OF BLADDER BY INSERTION OF SUPRAPUBIC CATHETER performed by Alfredo Panda MD at[facility] CABG, ARTERIAL, SINGLE 02/15/2011 CORONARY ARTERY BYPASS GRAFT USING ARTERY 1 GRAFT performed by TIERNEY GUERRERO at [place] [facility] CATHETERIZE LEFT HEART THRU SKIN 04/11/2009 LEFT HEART CATH, PERCUTANEOUS performed by GINGER FISHER at [facility] CATHETERIZE LEFT HEART THRU SKIN 02/01/2010 LEFT HEART CATH, PERCUTANEOUS performed by ALTHEA MANNING at [facility] CATHETERIZE LEFT HEART THRU SKIN 04/03/2010 LEFT HEART CATH, PERCUTANEOUS performed by GARCIA SOSA at [facility] COLONOSCOPY, DIAGNOSTIC (RECTUM) 05/20/2014 normal, repeat 10 yrs/done @ [facility] CORONARY ANGIOGRAPHY W/LEFT HEART CATH 10/29/2010 CORONARY ANGIOGRAPHY W/LEFT HEART CATH performed by ANNIE SEVILLA at [facility] CYSTOSCOPY N/A 04/08/2024 CYSTOURETHROSCOPY performed by Alfredo Panda MD at OR [facility] EGD, FLEXIBLE, DIAGNOSTIC 12/05/2017 portal hypertensive gastropathy/[facility] EGD, FLEXIBLE, DIAGNOSTIC 10/25/2022 retained food / ESOPHAGOGASTRODUODENOSCOPY (EGD), FLEXIBLE, TRANSORAL, DIAGNOSTIC performed by Raghavendra Medrano MD at [facility] EGD, W/ENDOSCOPIC US 06/26/2011 UPPER GI ENDOSCOPY ENDOSCOPIC ULTRASOUND performed by RACHEL BAHENA at [facility] INFORMATION 2021 L hip surgery. partial hip INFORMATION Left 2022 femur fx - hardware OTHER nerve biopsy right calf REMOVAL OF APPENDIX REMOVE ADDED SPINE LAMINA, 1 SEG 07/2007 Dr. Saleem L4-L5 REMOVE GALLBLADDER SURGICAL DRAINAGE OF BLADDER N/A 12/31/2023 CYSTOSTOMY WITH DRAINAGE OF BLADDER performed by Alfredo Panda MD at OR [facility] TOTAL ABD HYSTERECTOMY W/WO REMOVAL OF TUBE(S) Past Medical History: Diagnosis Date ASCVD (arteriosclerotic cardiovascular disease) Bipolar 1 disorder (HCC) Sees Dr. 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) Urge incontinence Type 2 diabetes mellitus with diabetic neuropathy, with long-term current use of insulin (HCC) Type 2 diabetes mellitus with stage 3a chronic kidney disease, with long-term current use of insulin (HCC) Coronary artery disease involving nikolai coronary artery of nikolai heart without angina pectoris Seasonal allergies 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) Medical home patient encounter Allergic rhinitis Chronic kidney disease, stage 3a (HCC) COPD, group B, by GOLD 2017 classification ([facility]) Suprapubic catheter (HCC) Recurrent UTI Pelvic pain Female : (+) see HPI Cystoscopy Procedure Note: Patient was properly identified and appropriate consent was confirmed. Risks and benefits of the procedure were reviewed and the patient was prepped and draped in the standard fashion for the procedure. A well lubricated 16 Senegalese flexible cystoscope was introduced through the meatus into the urethra. Urethra demonstrated no abnormalities. Bladder neck was visualized and bladder was entered. Sterile saline irrigation was used to distend the bladder which was noted to have no tumors, stones or mucosal abnormalities and suprapubic tube in the dome of the bladder with the tip retroflexed into the detrusor causing bladder distention with grade 3 trabeculation with cellules. Bladder was completely inspected including retroflexion of the scope. Ureteral orifices were noted to be in the normal anatomic position bilaterally. Attempt was made at passing suprapubic tube without wire guidance seenthe lack of a Councill catheter or hole punch but this caused malpositioning of the Gallagher catheter a nterior to the bladder as previous. A 20 Senegalese coude catheter was able to be guided into the bladder using visual guidance. After this was completed the cystoscope was removed. Patient suffered froma severe bladder spasm followed by a vagal episode. Patient was observed until this resolved. Business Insurance Agent was present for entire procedure. . Impression/Plan: 73-year-old female with severe bladder spasticity. Will increase the patient's dose of oxybutynin to 15 mg extended release. Short course of tramadol provided for coverage of discomfort. I think the patient may benefit from intravesical Botox. Will arrange, ideally in office. Otherwise, will see the patient in 3 weeks for exchange of suprapubic catheter. Alfredo Panda MD 2:56 PM 05/03/2024 documented in this encounter Plan of Treatment Upcoming Encounters Date Type Department Care Team (Late st Contact Info) Description 05/11/2024 4:00 PM EST Home Visit [facility], [facility] [address] [facility] [place] [address] Al Doyle, KAT [address] [facility] [place] [address] 05/24/2024 3:40 PM EST Office Visit Nephrology, [address] [place] [address] Maurilio Smith MD [address] [facility] [place] [address] 05/27/2024 10:30 AM EST Scheduled Telephone [facility], [facility] [address] [place] [address] Jesusita Saenz RDN [address] [place] [place] [address] 06/08/2024 6:00 PM EST Office Visit [facility] [address] [place] [phone] Carmen Sifuentes MD [address] [place] [address] 06/23/2024 11:45 AM EST Office Visit Urology, [facility] [address] [facility] [place] [address] Alfredo Panda MD [address] [place] [address] Scheduled Orders Name Type Priority Associated Diagnoses Orde r Schedule SUPRAPUBIC CHANGE/COMPLEX/NURSE Procedures Routine Suprapubic catheter (HCC) Ordered: 05/03/2024 CYSTOSCOPY Procedures Routine Suprapubic catheter (HCC) Ordered: 05/03/2024 Scheduled Procedures Name Priority Associated Diagnoses Date/Ti [...] Additional history exists CKD PHOS USE SMARTSET 71796 10/24/202310/05, 02/18/2022, 02/17/2022, Additional history exists COVID-19 [...] COPD 04/08/2025 04/08/2024 CKD HGB USE SMARTSET 01661 04/29/202504/29, 04/29/2024, 02/19/2024, Additional history exists DTap/Tdap [...] encounter Medical Devices Implanted Type Area Hotel Registration Clerk Device Identifier Shelf Expiration Date Model / Serial / Lot Sut Steel 6 M654g - [id number] Implanted:Qty: 3 on 02/15/2011 at [place] [facility] N/A: Chest DO NOT USE 01/15/2015 M654G / / [id number] [facility] 225-241 - [id number] Implanted:Qty: 1 on 02/15/2011 at OR [facility] N/A: Chest [employer] 225-241 / / [id number] Sut Steel 6 M654g - [id number] Implanted:Qty: 1 on 02/15/2011 at [place] [facility] N/A: Chest DO NOT USE 07/21/2015 M654G / / [id number] documented as of this encounter Visit Diagnoses Diagnosis Suprapubic catheter (HCC)- Primary Other cystostomy status Pelvic pain documented in this encounter Advance Directives Documents on File Type Date Recorded Patient Acidizer Water Well Expl anation POLST 05/06/2018 POLST * Full [...] Adult Child Health Care Agent Care Teams Support Services Rep Relationship Specialty Start Date End Date Carmen Sifuentes MD [address] [place] [address] PCP - General Family Medicine 07/16/17 documented as of this encounter
--- OUTSIDE RECORDS SUMMARY | 2024-05-24 16:59 | External Medical Summary | Summary of Care ---
Author Name Unknown Organization [facility] Address [address] [place] [address] Phone [phone] Care Team Providers Care Drafter Electrical Name Role Phone Brian Domínguez MD Primary Care Provider [phone]- [phone] Reason for Visit * Reason Onset Date Comments Appointment 04/29/2024 Encounter Details Date Type Department Care Team (Late st Contact Info) Description 04/29/2024 Telephone Nephrology, [address] [address] Maurilio Smith MD [address] [place] [address] Appointment Allergies Active Allergy Reactions Criticality Noted Date Comments Propoxyphene Hcl Rash Low 10/29/2010 Fentanyl Diarrhea Low 04/26/2010 anxiety Methocarbamol Medium 10/05/2020 Other reaction(s): Delirium Methocarbamol Low 04/15/2007 Zolpidem Low 10/05/2020 Other reaction(s): Confusion documented as of this encounter (statuses as of 04/29/2024) Medications Medication Sig Dispensed Refills Start Date End Date Status venlafaxine XR (EFFEXOR XR) 150 MG PZ77Whymvyqjyoe:Dep ression Take 1 Cap by mouth daily. [...] Kit 11/18/2017 Active Blood Glucose Monitoring Suppl ([employer]UCH VERIO) w/Device KIT Use as directed. Use as directed. 1 Kit 10/31/2018 Active Spacer/Aero-Holding Chambers WISAM Use with inhaler. Wheezing/bronchitis . 1 Device 04/08/2019 Active Lancet Devices (Agile SystemsTOUCH DELICA LANCING DEV) MISC Use four [...] Information Patient not taking.Reported on 03/22/2024 Nystatin 474535 UNIT/GM External Powder (Nystop)Indications :Candidal intertrigo Apply topically to affected area 3 times a day. Apply to right breast until rash resolved. 30 g 10/16/2023 Active Vitamin D (Ergocalciferol) 1.25 MG (15660 UT) Oral Capsule (Drisdol)Indication s:Vitamin D deficiency [...] Oral Tablet (Demadex)Indication s:Atherosclerotic heart disease of [place] coronary artery with other forms of angina [...] TIMES DAILY 90 Tablet 04/26/2024 Active Nystatin 459457 UNIT/ML Mouth/Throat Suspension SWISH AND SWALLOW 5ML IN THE MORNING AND 5ML AT NOON AND 5 ML IN THE EVENING AND 5ML BEFORE BEDTIME, FOR THRUSH 240 mL 1 04/26/2024 Active Ferrous Sulfate 325 (65 Fe) MG Oral Tablet Delayed Release Take 1 Tablet by mouth. 04/27/2024 Active documented as of this encounter (statuses [...] encounter 01/06/2023 Coronary artery disease invo lving [place] coronary artery of [place] heart without angina pectoris 11/15/2021 Last Assessment [...] 05/04/2004 Overview: Updated due to amp error Lanaint-Ywbln-Ntqcx disease 12/31/2002 Last Assessment & Plan: Frequent [...] is giving this. Pt also to see uro-receiver and ID Acute cystitis without hematuria 03/27/2021 07/08/2022 Pelvic pain 03/27/2021 02/03/2024 Type 2 diabetes mellitus wit h diabetic neuropathy 09/07/2018 11/07/2023 Overview: duplicate Mild protein-calorie malnutrition 05/07/2018 04/29/2019 Diabetes mellitus with neuropathy 05/06/2018 09/07/2018 Other cirrhosis of liver 05/06/2018 Atherosclerotic heart diseas e of [place] coronary artery with other forms of angina [...] stenosis 10/31/2010 08/28/2018 Acute coronary syndrome 10/30/201001/04 [place] Research Other*[id number] 02/02/2010 04/18/2014 Overview: [place] [facility], Dr Joel [...] encounter Miscellaneous Notes * Telephone Encounter - Oumou Singer OSA - 04/29/2024 10:32 AM EDT 04/29/24 Called patient, left message. Trying to get patient scheduled with Nephrology for appointment. Patient needs a hospital discharge appointment with Dr. Smith. Please offer an appointment in [facility] for h/d and then the patient can [facility] for follow-up appointments. Patient also will need lab orders completed no more than 3 days prior to the appointment. Lab orders have been placed in [facility] system. My G message being sent out as well. documented in this encounter Plan of Treatment Upcoming Encounters Date Type Department Care Team (Late st Contact Info) Description 04/29/2024 11:20 AM EDT Office Visit [facility] [address] [place] [phone] Marcelle Landa MD [address] [place] [address] 05/03/2024 2:00 PM EDT [facility] [address] [facility] [place] [address] Alfredo Panda MD [address] [place] [address] 05/11/2024 4:00 PM EST [facility] Visit [facility], [facility] [address] [facility] [address] Al Doyle, KAT [address] [place] [address] 05/27/2024 10:30 AM EST Scheduled Telephone [facility], [facility] [address] [place] [address] Jesusita Saenz RDN [address] [place] [facility] [place] [address] 06/08/2024 6:00 PM EST Office Visit [facility] [address] [place] [phone] Brian Domínguez MD [address] [place] [address] 06/23/2024 11:45 AM EST Office Visit Urology, [facility] [address] [facility] [place] [address] Alfredo Panda MD [address] [place] [address] Scheduled Procedures Name Priority Associated Diagnoses Date/Ti [...] Additional history exists CKD PHOS USE SMARTSET 40599 10/24/202310/05, 02/18/2022, 02/17/2022, Additional history exists COVID-19 [...] Additional history exists CKD HGB USE SMARTSET 40919 02/18/202502/18, 02/19/2024, 12/11/2023, Additional history exists O2 [...] this encounter Medical Devices Implanted Type Area Visual Merchandising Assistant Device Identifier Shelf Expiration Date Model / Serial / Lot Sut Steel 6 M654g - [id number] Implanted:Qty: 3 on 02/15/2011 at [place] [facility] N/A: Chest DO NOT USE 01/15/2015 M654G / / [id number] Band Magdy 225-241 - [id number] Implanted:Qty: 1 on 02/15/2011 at OR [facility] N/A: Chest [employer] 225-241 / / [id number] Sut Steel 6 M654g - [id number] Implanted:Qty: 1 on 02/15/2011 at OR [facility] N/A: Chest DO NOT USE 07/21/2015 M654G / / [id number] documented as of this encounter Advance Directives Documents on File Type Date Recorded Patient Field Health Officer Expl anation POLST 05/06/2018 POLST * Full [...] Agents on File Name Relationship Healthcare Agent [facility] p Communication Carolyn Goldmandrewnabila Adult Child Health Care Agent Care Teams Drafter Electrical Relationship Specialty Start Date End Date Brian Domínguez MD [address] [place] [address] PCP - General Family Medicine 07/16/17 documented as of this encounter
--- OUTSIDE RECORDS SUMMARY | 2024-05-24 16:59 | External Medical Summary ---
Author Name Unknown Address Unknown Organization K01:[facility]ATORY [facility] - [address] [facility]. [place] [facility] [address] Laboratory Report Ordering Provider Test Date Status KARLA VALENTINO 04/29/2024 12:12:45 Final Observation Date Value Abnormality Reference (Units ) Status SYNC LEUKOCYTES IN BLOOD BY AUTOMATED COUNT 04/29/2024 12:12:45 12.72 Above high normal 4.00-10.80 (K/uL) Final Segs 04/29/2024 12:12:45 73.2 40.0-75.0 (%) Final Lymphs % 04/29/2024 12:12:45 14.3 Below low normal 18.0-42.0 (%) Final Monos 04/29/2024 12:12:45 5.8 1.0-11.0 (%) Final Eosinophils 04/29/2024 12:12:45 1.2 0.0-6.0 (%) Final Basos 04/29/2024 12:12:45 0.6 0.0-2.0 (%) Final Immature Granulocyte, Percent 04/29/2024 12:12:45 4.9 Above high normal 0.0-2.0 (%) Final Absolute Segs 04/29/2024 12:12:45 9.32 Above high normal 1.80-7.70 (K/uL) Final Lymphs, absolute 04/29/2024 12:12:45 1.82 1.00-4.80 (K/ul) Final Monos, Abs 04/29/2024 12:12:45 0.74 0.00-1.10 (K/uL) Final Eos, Abs 04/29/2024 12:12:45 0.15 0.00-0.70 (K/uL) Final Basos, Abs 04/29/2024 12:12:45 0.07 0.00-0.20 (K/uL) Final Immature Granulocytes, Number 04/29/2024 12:12:45 0.62 Above high normal 0.00-0.20 (K/uL) Final Performing Location LABORATORY [facility] - [address] [place] [id number]
--- OUTSIDE RECORDS SUMMARY | 2024-05-24 16:59 | External Medical Summary ---
Author Name Unknown Address Unknown Organization K01:[facility] - [address] [place] [address] Laboratory Report Ordering Provider Test Date Status MARIA MORALES 04/29/2024 12:12:45 Final Observation Date Value Abnormality Reference (Units ) Status Osmolality 04/29/2024 12:12:45 284 278-305 ( mOsm/kg) Final Performing Location [facility] - [address] [place] [address]
--- OUTSIDE RECORDS SUMMARY | 2024-05-24 16:59 | External Medical Summary | Summary of Care ---
Author Name Unknown Organization [facility] Address [address] [place] [address] Phone [phone] Care Team Providers Care Cfa Name Role Phone Brian Domínguez MD Primary Care Provider [phone]- [phone] Reason for Visit * Reason Comments Outpatient Testing Encounter Details Date Type Department Care Team (Late st Contact Info) Description 04/29/2024 12:20 PM EDT Laboratory Laboratory, [place] [address] [place] [address] [place], [facility] [address] [place] [address] HTN, goal below 130/80; Chronic kidney disease, stage 3a (HCC); CEE (acute kidney injury) (HCC); Pneumonia of right upper lobe due to infectious organism; GONZALEZ (nonalcoholic steatohepatitis); Chronic liver disease and cirrhosis (HCC) Allergies Active Allergy Reactions Criticality Noted Date Comments Propoxyphene Hcl Rash Low 10/29/2010 Fentanyl Diarrhea Low 04/26/2010 anxiety Methocarbamol Medium 10/05/2020 Other reaction(s): Delirium Methocarbamol Low 04/15/2007 Zolpidem Low 10/05/2020 Other reaction(s): Confusion documented as of this encounter (statuses as of 04/29/2024) Medications Medication Sig Dispensed Refills Start Date End Date Status venlafaxine XR (EFFEXOR XR) 150 MG [id number]:Dep ression Take 1 Cap by mouth daily. [...] Kit 11/18/2017 Active Blood Glucose Monitoring Suppl ([employer] VERIO) w/Device KIT Use as directed. Use as directed. 1 Kit 10/31/2018 Active Spacer/Aero-Holding Chambers WISAM Use with inhaler. Wheezing/bronchitis . 1 Device 04/08/2019 Active Lancet Devices ([employer] Microsystems[employer]CH DELICA LANCING DEV) MISC Use four times [...] minutes 25 Tablet 5 10/16/2023 Active Nystatin 110348 UNIT/GM External Powder (Nystop)Indications :Candidal intertrigo Apply topically to affected area 3 times a day. Apply to right breast until rash resolved. 30 g 10/16/2023 Active Vitamin D (Ergocalciferol) 1.25 MG (37998 UT) Oral Capsule (Drisdol)Indication s:Vitamin D deficiency [...] AND OTHER MEDICATIONS 90 Tablet 03/11/2024 Active OneTouch Verio In Vitro Strip [...] TIMES DAILY 90 Tablet 04/26/2024 Active Nystatin 742332 UNIT/ML Mouth/Throat Suspension SWISH AND SWALLOW 5ML [...] encounter 01/06/2023 Coronary artery disease invo lving [place] coronary artery of [place] heart without angina pectoris 11/15/2021 Last Assessment [...] 05/04/2004 Overview: Updated due to amp error Otetyau-Naqbs-Vhaie disease 12/31/2002 Last Assessment & Plan: Frequent [...] is giving this. Pt also to see uro-plasterer rough and ID Acute cystitis without hematuria 03/27/2021 07/08/2022 Pelvic pain 03/27/2021 02/03/2024 Type 2 diabetes mellitus wit h diabetic neuropathy 09/07/2018 11/07/2023 Overview: duplicate Mild protein-calorie malnutrition 05/07/2018 04/29/2019 Diabetes mellitus with neuropathy 05/06/2018 09/07/2018 Other cirrhosis of liver 05/06/2018 Atherosclerotic heart diseas e of [place] coronary [...] stenosis 10/31/2010 08/28/2018 Acute coronary syndrome 10/30/201001/04 [employer] Research Other*[id number] 02/02/2010 04/18/2014 Overview: Karen Registry, Dr Joel [...] 05/03/2024 2:00 PM EDT Procedure Only Urology, [facility] [address] [address] Alfredo Panda MD [address] [address] 05/11/2024 4:00 PM EST [facility] Visit [facility] [place], [facility] [address] [address] Al Doyle, RN [address] [address] 05/27/2024 10:30 AM EST Scheduled Telephone [facility], [facility] [address] [facility] [address] [address] Jesusita Saenz, KELLYN [address] [facility] [place] [address] 06/08/2024 6:00 PM EST Office Visit Family [facility] [address] [place] [phone] Brian Domínguez MD [address] [place] [address] 06/23/2024 11:45 AM EST Office Visit Urology, [facility] [address] [facility] [address] [address] [address] Alfredo Panda MD [address] [facility] [address] [place] [address] Pending Results Name Type Priority Associated Diagnoses Date /Time OSMOLALITY, SERUM Lab Routine HTN, goal below 130/80 Chronic kidney disease, stage 3a (HCC) CEE (acute kidney injury) (HCC) 04/29/2024 12:12 PM EDT COMPREHENSIVE METABOLIC PANEL Lab Routine Pneumonia of [...] infectious organism 04/29/2024 12:12 PM EDT CBC Lab Routine Pneumonia of right upper lobe due to infectious organism 04/29/2024 12:12 PM EDT DIFFERENTIAL, AUTOMATED Lab Routine Pneumonia of right upper lobe due to infectious organism 04/29/2024 12:12 PM EDT Scheduled Procedures Name Priority Associated [...] Additional history exists CKD PHOS USE SMARTSET 43860 10/24/202310/05, 02/18/2022, 02/17/2022, Additional history exists COVID-19 [...] Additional history exists CKD HGB USE SMARTSET 30042 02/18/202502/18, 02/19/2024, 12/11/2023, Additional history exists O2 [...] this encounter Medical Devices Implanted Type Area Shoe Salesperson Device Identifier Shelf Expiration Date Model / Serial / Lot Sut Steel 6 M654g - [id number] Implanted:Qty: 3 on 02/15/2011 at OR [place] N/A: Chest DO NOT USE 01/15/2015 M654G / / [id number] Band Magdy 225-241 - [id number] Implanted:Qty: 1 on 02/15/2011 at OR [place] N/A: Chest [employer] 225-241 / / [id number] Sut Steel 6 M654g - [id number] Implanted:Qty: 1 on 02/15/2011 at OR [place] N/A: Chest DO NOT USE 07/21/2015 M654G / / [id number] documented as of this encounter Visit Diagnoses Diagnosis HTN, goal below 130/80 Unspecified essential hypertension Chronic kidney disease, stage 3a (HCC) CEE (acute kidney injury) (HCC) Acute kidney failure, unspecified Pneumonia of right upper lobe due to infectious organism GONZALEZ (nonalcoholic steatohepatitis) Other chronic nonalcoholic liver disease Chronic liver disease and cirrhosis (HCC) Unspecified chronic liver disease without mention of alcohol documented in this encounter Advance Directives Documents on File Type Date Recorded Patient Compensation And Benefits Advisor Expl anation POLST 05/06/2018 POLST * [...] Adult Child Health Care Agent Care Teams Cfa Relationship Specialty Start Date End Date Brian Domínguez MD [address] [place] [address] PCP - General Family Medicine 07/16/17 documented as of this encounter
--- OUTSIDE RECORDS SUMMARY | 2024-05-24 16:59 | External Medical Summary ---
Author Name Unknown Address Unknown Organization K01:[facility] [address] [place] [address] Laboratory Report Ordering Provider Test Date Status KARLA VALENTINO 04/29/2024 12:12:45 Final Observation Date Value Abnormality Reference (Units ) Status Magnesium 04/29/2024 12:12:45 1.8 1.5-2.6 (m g/dL) Final Performing Location [facility] - [address] [place] [address]
--- OUTSIDE RECORDS SUMMARY | 2024-05-24 16:59 | External Medical Summary ---
Author Name Unknown Address Unknown Organization K01[facility] [place] [address] [facility] [address] Laboratory Report Ordering Provider Test Date Status KARLA VALENTINO 04/29/2024 12:12:45 Final Observation Date Value Abnormality Reference (Units ) Status WBC, Total 04/29/2024 12:12:45 12.72 Above high normal 4.00-10.80 (K/uL) Final RBC 04/29/2024 12:12:45 5.27 3.85-5.15 (M/uL) Final Hemoglobin 04/29/2024 12:12:45 14.5 12.0-15.3 (g/dL) Final HCT 04/29/2024 12:12:45 44.8 36.0-45.2 (%) Final MCV 04/29/2024 12:12:45 85.0 81.5-97.5 (fL) Final MCH 04/29/2024 12:12:45 27.5 27.0-34.0 (pg) Final MCHC 04/29/2024 12:12:45 32.4 32.0-36.0 (g/dL) Final RDW 04/29/2024 12:12:45 15.4 11.5-15.5 (%) Final Platelets 04/29/2024 12:12:45 134 Below low normal 140-400 (K/uL) Final MPV 04/29/2024 12:12:45 11.2 6.6-11.1 (fL) Final Nucleated erythrocytes/100 leukocytes [Ratio] in Blood by Automated count 04/29/2024 12:12:45 0 <=0 (/100 WBCs) Final Performing Location [facility] [place] [address] [place] [address]
--- OUTSIDE RECORDS SUMMARY | 2024-05-24 16:59 | External Medical Summary ---
Author Name Unknown Address Unknown Organization K01:[facility] - [address] [facility] [place] [address] Laboratory Report Ordering Provider Test Date Status KARLA VALENTINO 04/29/2024 12:12:45 Final Observation Date Value Abnormality Reference (Units ) Status BUN 04/29/2024 12:12:45 21 Above high normal 6-20 (mg/dL) Final Creatinine 04/29/2024 12:12:45 1.1 Above high normal 0.5-1.0 (mg/dL) Final Glomerular filtration rate/1.73 sq M.predicted [Volume Rate/Area] in Serum, Plasma or Blood by Creatinine-based formula (CKD-EPI) 04/29/2024 12:12:45 51 Below low normal >=60 (mL/min) Final eGFR is calculated based on the CKD-EPI 2020 equation. Sodium 04/29/2024 12:12:45 129 Below low normal 135 -146 (mmol/L) Final Potassium 04/29/2024 12:12:45 3.7 3.5-5.1 (m mol/L) Final Cl 04/29/2024 12:12:45 89 Below low normal 98- 107 (mmol/L) Final CO2 04/29/2024 12:12:45 26 22-32 (mmo l/L) Final Anion gap 04/29/2024 12:12:45 14 7-15 (mmol /L) Final Glucose 04/29/2024 12:12:45 253 Above high normal 70 -120 (mg/dL) Final Albumin 04/29/2024 12:12:45 4.2 3.8-5.0 (g /dL) Final AST (Aspartate aminotransferase) 04/29/2024 12:12:45 22 10-35 (U/L) Fin al Alk Phos 04/29/2024 12:12:45 139 Above high normal 35 -130 (U/L) Final Bilirubin, Total 04/29/2024 12:12:45 0.6 <=1 .2 (mg/dL) Final Calcium 04/29/2024 12:12:45 9.4 8.4-10.2 ( mg/dL) Final Protein 04/29/2024 12:12:45 6.5 6.0-8.3 (g /dL) Final ALT (Alanine aminotransferase) 04/29/2024 12:12:45 37 Above high normal 10-35 (U/L) Final Performing Location [facility] - [address] [facility] [address]
--- OUTSIDE RECORDS SUMMARY | 2024-05-24 17:00 | External Medical Summary | Summary of Care ---
Author Name Unknown Organization [facility] Address [address] [place] [address] Phone [phone] Care Team Providers Care Byproduct Engineer Name Role Phone Carmen Sifuentes MD Primary Care Provider [phone]- [phone] Reason for Visit * Reason Onset Date Comments Medication Refill 04/26/2024 Encounter Details Date Type Department Care Team (Late st Contact Info) Description 04/26/2024 Refill [facility] [address] [place] [address] Carmen Sifuentes MD [address] [place] [address] Bipolar I disorder, most recent episode depressed, moderate (HCC) Allergies Active Allergy Reactions Criticality Noted Date Comments Propoxyphene Hcl Rash Low 10/29/2010 Fentanyl Diarrhea Low 04/26/2010 anxiety Methocarbamol Medium 10/05/2020 Other reaction(s): Delirium Methocarbamol Low 04/15/2007 Zolpidem Low 10/05/2020 Other reaction(s): Confusion documented as of this encounter (statuses as of 04/26/2024) Medications Medication Sig Dispensed Refills Start Date End Date Status venlafaxine XR (EFFEXOR XR) 150 MG [id number]:Dep ression Take 1 Cap by mouth daily. [...] Kit 8 Active Blood Glucose Monitoring Suppl ([employer] VERIO) w/Device KIT Use as directed. Use as directed. 1 Kit 9 Active Spacer/Aero-Holding Chambers WISAM Use with inhaler. Wheezing/bronchiti s. 1 Device 9 Active Lancet Devices ([employer] DELICA LANCING DEV) MISC Use four times [...] as directed 18 g 3 3 Active Budesonide-Formoter ol Fumarate 160-4.5 [...] before bedtime. 360 mL 3 3 Active MEDICAL INSTRUCTIONS Please arrange for as needed Home retirement visit for obtaining straight cath urine sample for 06/25/23. 1 Each 1 3 Active Famotidine 40 MG Oral Tablet (Pepcid)Indications :Gastroesophageal reflux disease with esophagitis without hemorrhage TAKE 1 TABLET BY MOUTH EVERY MORNING 90 Tablet 3 4 Active OneTouch Delica Lancets 33G USE UP TO FOUR TIMES A DAY Dx:E11.4 360 Each 5 4 Active Vitamin C 500 MG Oral Tablet (Ascorbic Acid)Indications:Re current UTI TAKE 1 TABLET BY MOUTH TWICE DAILY every morning and before bedtime 180 Tablet 3 4 Active PEG 3350 17 GM/SCOOP Oral Powder DISSOLVE ONE HEAPING TABLESPOON IN 8 OZ OF WATER OR JUICE DAILY NEEDED FOR CONSTIPATION. 510 g 5 4 Active Nitroglycerin 0.4 MG Sublingual Tablet Sublingual (Nitrostat)Indicati ons:Chronic coronary artery disease Place 1 Tablet under the tongue every 5 minutes as needed for Pain, Chest. Max dose 3 tablets in 15 minutes 25 Tablet 5 4 Active Additional Information Patient not taking.Reported on 03/22/2024 Nystatin 073740 UNIT/GM External Powder (Nystop)Indications :Candidal intertrigo Apply topically to affected area 3 times a day. Apply to right breast until rash resolved. 30 g 4 Active Vitamin D (Ergocalciferol) 1.25 MG (50815 UT) Oral Capsule (Drisdol)Indication s:Vitamin D deficiency [...] a day 200 Each 2 4 Active Ozempic (2 MG/DOSE) 8 MG/3ML Subcutaneous Solution Pen-injector (Semaglutide (2 MG/DOSE))Indication s:Type 2 diabetes mellitus with diabetic neuropathy, with long-term current use of insulin (HCC) Inject 2 mg subcutaneous once per week 3 mL 5 4 Active Xifaxan 550 MG Oral Tablet [...] every evening 180 Tablet 1 4 Active Levothyroxine Sodium 88 MCG Oral Tablet (Levoxyl)Indication s:Hypothyroidism TAKE 1 TABLET BY MOUTH ONCE DAILY AT LEAST 30 MINUTES BEFORE BREAKFAST AND OTHER MEDICATIONS 90 Tablet 1 4 Active OneTouch Verio In Vitro Strip (Glucose Blood)Indications:T ype 2 diabetes mellitus with diabetic neuropathy, with long-term current use of insulin (HCC) use to test blood sugar 3 times daily 300 Strip 3 4 Active Metoprolol Succinate ER 25 MG Oral Tablet Extended Release 24 Hour (toPROL XL)Indications:HTN, goal below 130/80 Take 1 tab by mouth twice per day 180 Tablet 3 4 Active Calcium Carbonate-Vitamin D 600-10 MG-MCG Oral Tablet Take 1 by mouth per day 90 Tablet 3 4 Active Spironolactone 50 MG Oral Tablet (Aldactone)Indicati ons:GONZALEZ (nonalcoholic steatohepatitis),Po rtal hypertension (HCC),Chronic liver disease and cirrhosis (HCC),Portal hypertensive gastropathy (HCC) TAKE ONE TABLET BY MOUTH IN THE MORNING AND ONE TABLET BEFORE BEDTIME 180 Tablet 1 4 Active Torsemide 20 MG Oral Tablet (Demadex)Indication s:Atherosclerotic heart disease of [place] coronary artery with other forms of angina pectoris (HCC),Hypertensive heart disease with chronic diastolic congestive heart failure (HCC) TAKE 1 TABLET BY MOUTH EVERY MORNING - may take an additional tablet if needed for swelling 90 Tablet 1 4 Active Venlafaxine HCl 100 MG Oral Tablet (Effexor) 1 Tablet. 4 Active Tamsulosin HCl 0.4 MG Oral Capsule (Flomax) TAKE 1 CAPSULE BY MOUTH EVERY MORNING 90 Capsule 4 Active Gabapentin 300 MG Oral Capsule (Neurontin)Indicati ons:Lumbar spondylosis TAKE 1 CAPSULE BY MOUTH TWICE DAILY 60 Capsule 5 4 Active oxyCODONE-Acetamino phen 5-325 MG Oral Tablet (Percocet) Take 1 Tablet by mouth every 8 hours as needed for Pain, Severe. 8 Tablet 4 Active Sulfamethoxazole-Tr imethoprim 800-160 MG Oral Tablet (Bactrim DS) Take 1 Tablet by mouth in the morning and 1 Tablet before bedtime. 8 Tablet 4 Active Dicyclomine HCl 10 MG Oral Capsule (Bentyl)Indications :Abdominal pain TAKE 1 CAPSULE BY MOUTH FOUR TIMES DAILY NEEDED for abdominal 120 Capsule 4 Active clonazePAM 0.5 MG Oral Tablet (KlonoPIN)Indicatio ns:Bipolar I disorder, most recent episode depressed, moderate (HCC) TAKE ONE TABLET BY MOUTH THREE TIMES DAILY 90 Tablet 4 Active clonazePAM 0.5 MG Oral Tablet (KlonoPIN)Indicatio ns:Bipolar I disorder, most recent episode depressed, moderate (HCC) TAKE ONE TABLET BY MOUTH THREE TIMES DAILY 90 Tablet 4 04/26/20 24 Discontinu ed(Refill) documented as of this encounter (statuses as of 04/26/2024) Active Problems Problem Noted Date Diagnosed Date [...] encounter 01/06/2023 Coronary artery disease invo lving [place] coronary artery of [place] heart without angina pectoris 11/15/2021 Last [...] at goal, continue same Urge incontinence 03/27/2021 nursing home (current) use [...] 05/04/2004 Overview: Updated due to amp error Gnydzfu-Gaomq-Cunyd disease 12/31/2002 Last Assessment & Plan: Frequent falls Home PT and OT continue GONZALEZ (nonalcoholic steatohepatitis) documented as of this encounter (statuses as of 04/26/2024) Resolved Problems Problem Noted Date Diagnosed Date [...] is giving this. Pt also to see uro-demand planner and ID Acute cystitis without hematuria 03/27/2021 07/08/2022 Pelvic pain 03/27/2021 02/03/2024 Type 2 diabetes mellitus wit h diabetic neuropathy 09/07/2018 11/07/2023 Overview: duplicate Mild protein-calorie malnutrition 05/07/2018 04/29/2019 Diabetes mellitus with neuropathy 05/06/2018 09/07/2018 Other cirrhosis of liver 05/06/2018 Atherosclerotic heart diseas e of [place] coronary artery with other forms of [...] 10/31/2010 08/28/2018 Acute coronary syndrome 10/30/201001/04 [place] Research Other*[id number] 02/02/2010 04/18/2014 Overview: Karen Registry, Dr Joel [...] as of this encounter (statuses as of 04/26/2024) Immunizations Name Administration Dates Next Due COVID-19 [...] Telephone Encounter - Carmen Sifuentes MD - 04/26/2024 1:32 PM EDTSigned Prescriptions: Disp Refills clonazePAM 0.5 MG Oral Tablet (KlonoPIN) 90 Tab*0 Sig: TAKE ONE TABLET BY MOUTH THREE TIMES DAILYAuthorizing Provider: CARMEN SIFUENTES * Telephone Encounter - Carmen Sifuentes MD - 04/26/2024 1:32 PM EDTSigned Prescriptions: Disp Refills clonazePAM 0.5 MG Oral Tablet (KlonoPIN) 90 Tab*0 Sig: TAKE ONE TABLET BY MOUTH THREE TIMES DAILYAuthorizing Provider: CARMEN SIFUENTES * Telephone Encounter - Gianna Davalos [facility] - 04/26/2024 1:18 PM EDT I have reviewed the patients controlled substance dispensing history in the Prescription Drug Monitoring Program in compliance with the [place] [facility] regulations before prescribing a controlled substance. PDMP checked on 04/26/2024. Pending Prescriptions: Disp Refills clonazePAM 0.5 MG Oral Tablet (KlonoPIN) 90 Tab*0 Sig: TAKE ONE TABLET BY MOUTH THREE TIMES DAILY Last Visit: 03/22/2024 (in office), 06/20/2023 (telemedicine) Next Visit: 04/29/2024 Date medication was last filled: 03/19/24 Date medication is due for refill: 04/17/24 Pharmacy: [id number] [id number] Is this request for a controlled substance? Yes and Urine Drug Screen Not completed Toxicology results: No results found. However, due to the size of the patient record, not all encounters were searched.Please check Results Review for a complete set of results. Please approve if appropriate. Thank You, Gianna Davalos [facility] Clinical Pharmacist [facility] ([facility]) [phone] [id number] 04/26/2024, 1:18 PM * Telephone Encounter - Rashmi Porter PHARM Tech - 04/26/2024 1:04 PM EDT Pt requesting HIGH PRIORITY due to pt out of meds Did you pend patient's preferred pharmacy and medication before forwarding?yes Pharmacy: [id number] [address] Pending Prescriptions: Disp Refills clonazePAM 0.5 MG Oral Tablet (KlonoPIN) 90 Tab*0 Sig: TAKE ONE TABLET BY MOUTH THREE TIMES DAILY Last Visit: 03/22/2024 (in office), 06/20/2023 (telemedicine) Next Visit: 04/29/2024 If no future appointments scheduled, and last appointment is greater than a year ago, please schedule patient for a follow-up appointment Last date the medication was ordered: 03/19/2024 Is this request for a controlled substance?Yes, What was the last refill date 03/19/2024 w/ quantity 90 and dosage 0.5 mg and Urine Drug Screen Not completed Urine Drug Screen:No results found. However, due to the size of the patient record, not all encounters were searched. Please check Results Review for a complete set of results. Patient Phone Numbers Labs: Lab Results Component Value Date/Time CREAT 1.2 (H) 02/19/2024 01:58 PM CREAT 1.13 02/26/2021 12:00 AM CREAT 1.0 07/18/2020 12:20 PM POTASSIUM 3.9 02/19/2024 01:58 PM POTASSIUM 4.0 02/26/2021 12:00 AM POTASSIUM 4.6 07/18/2020 12:20 PM TSH 1.35 06/17/2023 12:33 PM TSH 1.47 05/22/2020 01:24 PM LDL 35 10/23/2022 10:46 AM LDL 91 05/22/2020 01:24 PM LDL 39 02/18/2019 02:55 PM LDLCALC 41 02/05/2016 12:00 AM ALT 14 02/19/2024 01:58 PM ALT 26 05/22/2020 01:24 PM HGBA1C 5.9 (H) 02/19/2024 01:58 PM HGBA1C 6.2 (A) 12/11/2023 12:00 AM HGBA1C 5.9 (H) 05/22/2020 01:24 PM documented in this encounter Plan of Treatment Upcoming Encounters Date Type Department Care Team (Late st Contact Info) Description 04/27/2024 4:00 PM EDT [facility], [facility] [address] [facility] [address] [address] Al Doyle, RN [address] [facility] [place] [address] 04/29/2024 11:20 AM EDT Office Visit [facility] [address] [place] [phone] Marcelle Landa MD [address] [place] [address] 05/03/2024 2:00 PM EDT Procedure Only Urology, [facility] [address] [facility] [place] [address] Alfredo Panda MD [address] [address] 05/27/2024 10:30 AM EST Scheduled Telephone [facility], [facility] [address] [facility] [address] Jesusita Saenz, RDN [address] [facility] [place] [address] 06/08/2024 6:00 PM EST Office Visit [facility] [address] [facility] [phone] Carmen Sifuentes MD [address] [place] [address] 06/23/2024 11:45 AM EST Office Visit Urology, [facility] [address] [facility] [place] [address] Alfredo Panda MD [address] [address] Scheduled Procedures Name Priority Associated Diagnoses Date/Ti [...] Additional history exists CKD PHOS USE SMARTSET 09984 10/24/202310/05, 02/18/2022, 02/17/2022, Additional history exists COVID-19 [...] Additional history exists CKD HGB USE SMARTSET 47912 02/18/202502/18, 02/19/2024, 12/11/2023, Additional history exists O2 [...] this encounter Medical Devices Implanted Type Area Property Management Assistant Device Identifier Shelf Expiration Date Model / Serial / Lot Sut Steel 6 M654g - [id number] Implanted:Qty: 3 on 02/15/2011 [place] [facility] [place]A: Chest DO NOT USE 01/15/2015 M654G / / [id number] [facility] 225-241 - [id number] Implanted:Qty: 1 on 02/15/2011 at [place] [facility] [place]/A: Chest [employer] 225-241 / / [id number] Sut Steel 6 M654g - [id number] Implanted:Qty: 1 on 02/15/2011 at [place] [facility] [place]A: Chest DO NOT USE 07/21/2015 M654G / / [id number] documented as of this encounter Visit Diagnoses Diagnosis Bipolar I disorder, most recent episode depressed, moderate (HCC) Bipolar I disorder, most recent episode (or current) depressed, moderate documented in this encounter Advance Directives Documents on File Type Date Recorded 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
--- OUTSIDE RECORDS SUMMARY | 2024-05-24 17:01 | External Medical Summary | Summary of Care ---
Author Name Unknown Organization [facility] Address [address] [facility] [place] [address] Phone [phone] Care Team Providers Care Automotive Refinish Technician Name Role Phone Brian Domínguez MD Primary Care Provider +1- [phone] Reason for Visit * Reason Onset Date Comments [facility]: Maintenance 04/26/2024 Encounter Details Date Type Department Care Team (Late st Contact Info) Description 04/26/2024 Telephone [facility], [address] [place] [address] Chanel Isidro, NURSING EDUCATOR [address] [place] [address] [facility]: Maintenance Allergies Active Allergy Reactions Criticality Noted Date Comments Propoxyphene Hcl Rash Low 10/29/2010 Fentanyl Diarrhea Low 04/26/2010 anxiety Methocarbamol Medium 10/05/2020 Other reaction(s): Delirium Methocarbamol Low 04/15/2007 Zolpidem Low 10/05/2020 Other reaction(s): Confusion documented as of this encounter (statuses as of 04/26/2024) Medications Medication Sig Dispensed Refills Start Date End Date Status venlafaxine XR (EFFEXOR XR) 150 MG [id number]:Dep ression Take 1 Cap by mouth daily. [...] Kit 11/18/2017 Active Blood Glucose Monitoring Suppl (EvalveUCH VERIO) w/Device KIT Use as directed. Use as directed. 1 Kit 10/31/2018 Active Spacer/Aero-Holding Chambers WISAM Use with inhaler. Wheezing/bronchitis . 1 Device 04/08/2019 Active Lancet Devices (VaporWireTOUCH DELICA LANCING DEV) MISC Use four times [...] Information Patient not taking.Reported on 03/22/2024 Nystatin 912074 UNIT/GM External Powder (Nystop)Indications :Candidal intertrigo Apply topically to affected area 3 times a day. Apply to right breast until rash resolved. 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 Pt also to see uro-steam plant control room operator and ID Acute cystitis without hematuria [...] stenosis 10/31/2010 08/28/2018 Acute coronary syndrome 10/30/201001/04 [employer] Other*[id number] 02/02/2010 04/18/2014 Overview: Karen Registry, Dr Joel [...] 01/21/2014 watermelon harvesting supervisor current use of ant icoagulant therapy [...] encounter Miscellaneous Notes * Telephone Encounter - Chanel Isidro LPN - 04/26/2024 9:23 AM EDT Patient discharged from [facility] Friday to home Rescheduled return visit from the to the with Al Doyle due to PCP appointment 04/29 Called and spoke to patient and agreeable to date/time change documented in this encounter Plan of Treatment Upcoming Encounters Date Type Department Care Team (Late st Contact Info) Description 04/27/2024 4:00 PM EDT Home Visit [facility], [facility] [address] [address] Al Doyle, RN [address] [place] [address] 04/29/2024 11:20 AM EDT Office Visit [facility] [address] [place] [phone] Marcelle Landa MD [address] [place] [address] 05/03/2024 2:00 PM EDT Procedure Only Urology, [facility] [address] [place] [address] Alfredo Panda MD [address] [address] 05/27/2024 10:30 AM EST Scheduled Telephone [facility], [facility] [address] [place] [facility] [place] [address] Jesusita Saenz, RDN [address] [place] [facility] [place] [address] 06/08/2024 6:00 PM EST Office Visit [facility] [address] [place] [phone] Brian Domínguez MD [address] [place] [address] 06/23/2024 11:45 AM EST Office Visit Urology, [facility] [address] [place] [address] Alfredo Panda MD [address] [address] Scheduled Procedures Name Priority Associated Diagnoses Date/Ti [...] Additional history exists CKD PHOS USE SMARTSET 83265 10/24/202310/05, 02/18/2022, 02/17/2022, Additional history exists COVID-19 [...] Additional history exists CKD HGB USE SMARTSET 10573 02/18/202502/18, 02/19/2024, 12/11/2023, Additional history exists O2 [...] this encounter Medical Devices Implanted Type Area Catering Cook Device Identifier Shelf Expiration Date Model / Serial / Lot Sut Steel 6 M654g - [id number] Implanted:Qty: 3 on 02/15/2011 at [place] [facility] [place] N/A: Chest DO NOT USE 01/15/2015 M654G / / [id number] Band Magdy 225-241 - [id number] Implanted:Qty: 1 on 02/15/2011 at OR [facility] [place] N/A: Chest [employer] 225-241 / / [id number] Sut Steel 6 M654g - [id number] Implanted:Qty: 1 on 02/15/2011 at OR [facility] [place] N/A: Chest DO NOT USE 07/21/2015 M654G / / [id number] documented as of this encounter Advance Directives Documents on File Type Date Recorded 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
--- OUTSIDE RECORDS SUMMARY | 2024-05-24 17:01 | External Medical Summary | Summary of Care ---
Author Name Unknown Organization [facility] Address [address] [place] [address] Phone [phone] Care Team Providers Care Manager Technology Name Role Phone Carmen Sifuentes MD Primary Care Provider +1- [phone] Reason for Visit * Reason Onset Date Comments Medication Refill 04/26/2024 Encounter Details Date Type Department Care Team (Late st Contact Info) Description 04/26/[address] [facility] [address] [place] [address] Carmen Sifuentes MD [address] [place] [address] Allergies Active Allergy Reactions Criticality Noted Date Comments Propoxyphene Hcl Rash Low 10/29/2010 Fentanyl Diarrhea Low 04/26/2010 anxiety Methocarbamol Medium 10/05/2020 Other reaction(s): Delirium Methocarbamol Low 04/15/2007 Zolpidem Low 10/05/2020 Other reaction(s): Confusion documented as of this encounter (statuses as of 04/26/2024) Medications Medication Sig Dispensed Refills Start Date End Date Status venlafaxine XR (EFFEXOR XR) 150 MG BE62Vwsflyralad:Dep ression Take 1 Cap by mouth daily. [...] Kit 8 Active Blood Glucose Monitoring Suppl (Smarter Grid SolutionsUCH VERIO) w/Device KIT Use as directed. Use as directed. 1 Kit 9 Active Spacer/Aero-Holding Chambers WISAM Use with inhaler. Wheezing/bronchiti s. 1 Device 9 Active Lancet Devices (MyToonsTOUCH DELICA LANCING DEV) MISC Use four times [...] Information Patient not taking.Reported on 03/22/2024 Nystatin 120839 UNIT/GM External Powder (Nystop)Indications :Candidal intertrigo Apply topically to affected area 3 times a day. Apply to right breast until rash resolved. 30 g 4 Active Vitamin D (Ergocalciferol) 1.25 MG (14594 UT) Oral Capsule (Drisdol)Indication s:Vitamin D deficiency [...] NEEDED for abdominal 120 Capsule 4 Active Nystatin 207141 UNIT/ML Mouth/Throat Suspension SWISH AND SWALLOW 5ML IN THE MORNING AND 5ML AT NOON AND 5 ML IN THE EVENING AND 5ML BEFORE BEDTIME, FOR THRUSH 240 mL 1 4 Active Nystatin 389887 UNIT/ML Mouth/Throat Suspension SWISH AND SWALLOW 5ML IN THE MORNING AND 5ML AT NOON AND 5 ML IN THE EVENING AND 5ML BEFORE BEDTIME, FOR THRUSH 240 mL 1 4 04/26/20 24 Discontinu ed(Refill) clonazePAM 0.5 MG Oral Tablet [...] encounter 01/06/2023 Coronary artery disease invo lving [place] coronary artery of [place] heart without angina pectoris 11/15/2021 Last Assessment [...] goal, continue same Urge incontinence 03/27/2021 intermediate (current) use of [...] 05/04/2004 Overview: Updated due to amp error Frbmxuw-Qwxvm-Bxmhd disease 12/31/2002 Last Assessment & Plan: Frequent [...] is giving this. Pt also to see uro-automation driver and ID Acute cystitis without hematuria [...] 10/31/2010 08/28/2018 Acute coronary syndrome 10/30/201001/04 [place] Research Other*[id number] 02/02/2010 04/18/2014 Overview: Karen Registry, Dr Joel [...] s 01/20/2024 Does the household have a [facility] source of income? (Household - for ages [...] Encounter - Carmen Sifuentes MD - 04/26/2024 1:31 PM EDTSigned Prescriptions: Disp Refills Nystatin 262142 UNIT/ML Mouth/Throat Suspe*240 mL 1 Sig: SWISH AND SWALLOW 5ML IN THE MORNING AND 5ML AT NOON AND 5 ML IN THE EVENING AND 5ML BEFORE BEDTIME, FOR THRUSHAuthorizing Provider: CARMEN SIFUENTES * Telephone Encounter - Rashmi Porter, piggyback clerk - 04/26/2024 1:11 PM EDT Did you pend patient's preferred pharmacy and medication before forwarding?yes Pharmacy: [id number] Pending Prescriptions: Disp Refills Nystatin 274749 UNIT/ML Mouth/Throat Susp*240 mL 1 Sig: SWISH AND SWALLOW 5ML IN THE MORNING AND 5ML AT NOON AND 5 ML IN THE EVENING AND 5ML BEFORE BEDTIME, FOR THRUSH Last Visit: 03/22/2024 (in office), 06/20/2023 (telemedicine) Next Visit: 04/29/2024 If no future appointments scheduled, and last appointment is greater than a year ago, please schedule patient for a follow-up appointment Last date the medication was ordered: 10/16/2023 Is this request for a controlled substance?No [...] PM EDT Home Visit [facility], [facility] [address] [facility] [place] [address] Al Doyle, RN [address] [facility] [place] [address] 04/29/2024 11:20 AM EDT Office [facility] [address] [facility] [phone] Marcelle Landa MD [address] [facility] [place] [phone] 05/03/2024 2:00 PM EDT Procedure Only Urology, [facility] [address] [facility] [place] [address] Alfredo Panda MD [address] [place] [address] 05/27/2024 10:30 AM EST Scheduled Telephone [facility], [facility] [address] [facility] [place] [address] Jesusita Saenz, RDN [address] [facility] [place] [address] 06/08/2024 6:00 PM EST Office [facility] [address] [facility] [phone] Carmen Sifuentes MD [address] [facility] [place] [id number] 06/23/2024 11:45 AM EST Office Visit Urology, [facility] [address] [place] [address] Alfredo Panda MD [address] [place] [...] Additional history exists CKD PHOS USE SMARTSET 91579 10/24/202310/05, 02/18/2022, 02/17/2022, Additional history exists COVID-19 [...] Additional history exists CKD HGB USE SMARTSET 15770 02/18/202502/18, 02/19/2024, 12/11/2023, Additional history exists O2 [...] this encounter Medical Devices Implanted Type Area Tray Line Worker Device Identifier Shelf Expiration Date Model / Serial / Lot Sut Steel 6 M654g - [id number] [place]planted:Q[place] 3 [place] [facility] [place]: Chest DO NOT USE 01/15/2015 M654G / / [id number] [facility] 225-241 - [id number] Implanted:Qty: 1 on 02[place]15/2011 [place] [facility] [place]: Chest [employer] 225-241 / / [id number] Sut Steel 6 M654g - [id number] Implanted:Qty: 1 on 02[place]15/2011 [place] [facility] [place]: Chest DO NOT USE 07/21/2015 M654G / / [id number] documented as of this encounter Advance Directives Documents on File Type Date Recorded Patient Vessel Ordinary Seaman Expl anation POLST 05/06/2018 POLST * Full [...] Healthcare Agent [facility] p Communication Carolyn Goldmandrewnabila Adult Child Health Care Agent Care Teams Manager Technology Relationship Specialty Start Date End Date Carmen Sifuentes MD [address] [place] [address] PCP - General Family Medicine 07/16/17 documented as of this encounter
--- OUTSIDE RECORDS SUMMARY | 2024-05-24 17:02 | External Medical Summary | Summary of Care ---
Author Name Unknown Organization [facility] Address [address] [facility] [address] Phone [phone] Care Team Providers Care Tobacco Cloth Reclaimer Name Role Phone Brian Domínguez MD Primary Care Provider +1- [phone] Encounter Details Date Type Department Care Team (Late st Contact Info) Description 04/22/2024 Telephone Urology, [facility] [address] [facility] [place] [id number] Alfredo Panda MD [address] [address] Allergies Active Allergy Reactions Criticality Noted Date Comments Propoxyphene Hcl Rash Low 10/29/2010 Fentanyl Diarrhea Low 04/26/2010 anxiety Methocarbamol Medium 10/05/2020 Other reaction(s): Delirium Methocarbamol Low 04/15/2007 Zolpidem Low 10/05/2020 Other reaction(s): Confusion documented as of this encounter (statuses as of 04/23/2024) Medications Medication Sig Dispensed Refills Start Date End Date Status venlafaxine XR (EFFEXOR XR) 150 MG HF68Wodozrcmxhx:Dep ression Take 1 Cap by mouth daily. [...] Kit 11/18/2017 Active Blood Glucose Monitoring Suppl (Buy Local CanadaTOUCH VERIO) w/Device KIT Use as directed. Use as directed. 1 Kit 10/31/2018 Active Spacer/Aero-Holding Chambers WISAM Use with inhaler. Wheezing/bronchitis . 1 Device 04/08/2019 Active Lancet Devices (Buy Local CanadaTOUCH DELICA LANCING DEV) MISC Use four times [...] Information Patient not taking.Reported on 03/22/2024 Nystatin 276848 UNIT/GM External Powder (Nystop)Indications :Candidal intertrigo Apply topically to affected area 3 times a day. Apply to right breast until rash resolved. 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 Pt also to see uro-resident care manager rn and ID Acute cystitis without hematuria 03/27/2021 [...] stenosis 10/31/2010 08/28/2018 Acute coronary syndrome 10/30/201001/04 [place] Research Other*[id number] 02/02/2010 04/18/2014 Overview: Karen Registry, Dr Joel [...] Duplicate Protocol #2. 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/2014 vermin exterminator current use of ant icoagulant therapy [...] as of this encounter (statuses as of 04/23/2024) Immunizations Name Administration Dates Next Due COVID-19 [...] Telephone Encounter - Alfredo Panda MD - 04/23/2024 12:45 PM EDT Noted. Let's obtain records once available. Thx, HM * Telephone Encounter - Hue Coates LPN - 04/22/2024 8:[address] Panda Received fax from [facility] that patient was admitted to [facility] 04/20/24 for AMS and respiratory failure. Just FYI. Thank you Yudith documented in this encounter Plan of Treatment Upcoming Encounters Date Type Department Care Team (Late st Contact Info) Description 04/29/2024 2:30 PM EDT Home Visit [facility] [address] [address] Al Doyle RN [address] [place] [address] 05/03/2024 2:00 PM EDT Procedure Only Urology, [facility] [address] [facility] [place] [address] Alfredo Panda MD [address] [address] 05/27/2024 10:30 AM EST Scheduled Telephone [facility], [facility] [address] [facility] [place] [address] Jesusita Saenz RDN [address] [facility] [address] 06/08/2024 6:00 PM EST Office Visit [facility] [address] [place] [address] Brian Domínguez MD [address] [place] [address] 06/23/2024 11:45 AM EST Office Visit Urology, [facility] [address] [facility] [place] [address] Alfredo Panda MD [address] [address] Scheduled Procedures Name Priority Associated Diagnoses Date/Ti [...] Additional history exists CKD PHOS USE SMARTSET 10846 10/24/202310/05, 02/18/2022, 02/17/2022, Additional history exists COVID-19 [...] Additional history exists CKD HGB USE SMARTSET 81075 02/18/202502/18, 02/19/2024, 12/11/2023, Additional history exists O2 [...] this encounter Medical Devices Implanted Type Area Pharmacy Teacher Device Identifier Shelf Expiration Date Model / Serial / Lot Jenna Rojas 6 M654g - [id number] Implanted:Qty: 3 [place] [facility] [place] Chest DO NOT USE 01/15/2015 M654G / / [id number] Band [employer]dy 225-241 - [id number] Implanted:Qty: 1 on 02[place]15/2011 [place] [facility] [place]: Chest [employer] 225-241 / / [id number] Jenna Rojas 6 M654g - [id number] Implanted:Qty: 1 on [place]2011 [place] [facility] [place]: Chest DO NOT USE 07/21/2015 M654G / / [id number] documented as of this encounter Advance Directives Documents on File Type Date Recorded Patient Fast Food Manager Expl anation POLST 05/06/2018 POLST * [...] Agents on File Name Relationship Healthcare [facility] p Communication Carolyn Ballard Adult Child Health Care Agent Care Teams Tobacco Cloth Reclaimer Relationship Specialty Start Date End Date Brian Domínguez MD [address] [facility] [place] [address] PCP - General Family Medicine 07/16/17 documented as of this encounter
--- OUTSIDE RECORDS SUMMARY | 2024-05-24 17:02 | External Medical Summary | Summary of Care ---
Author Name Unknown Organization [facility] Address [address] [place] [address] Phone [phone] Care Team Providers Care Commercial Analyst Name Role Phone Brian Domínguez MD Primary Care Provider +1- [phone] Reason for Visit * Reason Onset Date Comments Medical Nutrition Therapy 04/23/2024 Encounter Details Date Type Department Care Team (Latest Contact Info) Description 04/23/2024 10:30 AM EDT Scheduled Telephone [facility], [facility] [address] [facility] [place] [address] Jesusita Saenz, RDN [address] [place] [facility] [place] [address] Type 2 diabetes mellitus with stage 3a chronic kidney disease, with long-term current use of insulin ([facility], [facility])* Allergies Active Allergy Reactions Criticality Noted Date Comments Propoxyphene Hcl Rash Low 10/29/2010 Fentanyl Diarrhea Low 04/26/2010 anxiety Methocarbamol Medium 10/05/2020 Other reaction(s): Delirium Methocarbamol Low 04/15/2007 Zolpidem Low 10/05/2020 Other reaction(s): Confusion documented as of this encounter (statuses as of 04/23/2024) Medications Medication Sig Dispensed Refills Start Date End Date Status venlafaxine XR (EFFEXOR XR) 150 MG [id number]:Dep ression Take 1 Cap by mouth daily. [...] Kit 11/18/2017 Active Blood Glucose Monitoring Suppl (Tissue Genesis VERIO) w/Device KIT Use as directed. Use as directed. 1 Kit 10/31/2018 Active Spacer/Aero-Holding Chambers WISAM Use with inhaler. Wheezing/bronchitis . 1 Device 04/08/2019 Active Lancet Devices (Tissue Genesis DELICA LANCING DEV) MISC Use four times [...] Information Patient not taking.Reported on 03/22/2024 Nystatin 762870 UNIT/GM External Powder (Nystop)Indications :Candidal intertrigo Apply topically to affected area 3 times a day. Apply to right breast until rash resolved. 30 g 10/16/2023 Active Nystatin 120745 UNIT/ML Mouth/Throat Suspension SWISH AND SWALLOW 5ML IN THE MORNING AND 5ML AT NOON AND 5 ML IN THE EVENING AND 5ML BEFORE BEDTIME, FOR THRUSH 240 mL 1 10/16/2023 Active Vitamin D (Ergocalciferol) 1.25 MG (91016 UT) Oral Capsule (Drisdol)Indication s:Vitamin D deficiency [...] LOC[facility]) use to test blood sugar 3 times [...] encounter 01/06/2023 Coronary artery disease invo lving [place] coronary artery of [place] heart without angina pectoris 11/15/2021 Last Assessment [...] 05/04/2004 Overview: Updated due to amp error Dekrqvs-Apoxz-Lohku disease 12/31/2002 Last Assessment & Plan: Frequent [...] is giving this. Pt also to see uro-furnace brazer and ID Acute cystitis without hematuria 03/27/2021 07/08/2022 Pelvic pain 03/27/2021 02/03/2024 Type 2 diabetes mellitus wit h diabetic neuropathy 09/07/2018 11/07/2023 Overview: duplicate Mild protein-calorie malnutrition 05/07/2018 04/29/2019 Diabetes mellitus with neuropathy 05/06/2018 09/07/2018 Other cirrhosis of liver 05/06/2018 Atherosclerotic heart diseas e of [place] coronary [...] stenosis 10/31/2010 08/28/2018 Acute coronary syndrome 10/30/201001/04 [facility] Research Other*[id number] 02/02/2010 04/18/2014 Overview: Karen Registry, Dr Joel [...] Telephone Encounter - Jesusita Saenz RDN - 04/23/2024 10:04 AM EDT NUTRITION CONSULT - OUTPATIENT [facility] Name: Angelina Ballard Location: [facility], [facility] Date: 04/23/2024 Time: 10:05 AM Upon review of EMR, Patient currently admitted to the hospital (04/20/24 due to AMS), therefore, Nutrition Referral/Consult could not be completed as scheduled this date. Will monitor hospitalization status and reschedule for the near future. Reason for Referral: Type 2 Diabetes, [facility] Jesusita Saenz RDN [facility], [facility] documented in this encounter Plan of Treatment Upcoming Encounters Date Type Department Care Team (Late st Contact Info) Description 04/29/2024 2:30 PM EDT Home Visit [facility], [facility] [address] [facility] [place] [address] Al Doyle, RN [address] [facility] [place] [address] 05/03/2024 2:00 PM EDT Procedure Only Urology, [facility] [address] [facility] [place] [address] Alfredo Panda MD [address] [place] [address] 05/27/2024 10:30 AM EST Scheduled Telephone [facility], [facility] [address] [place] [facility] [place] [address] Jesusita Saenz RDN [address] [place] [facility] [place] [address] 06/08/2024 6:00 PM EST Office Visit [facility] [address] [place] [address] Brian Domínguez MD [address] [place] [address] 06/23/2024 11:45 AM EST Office Visit Urology, [facility] [address] [facility] [place] [address] Alfredo Panda MD [address] [place] [address] Scheduled Procedures Name Priority Associated Diagnoses Date/Ti [...] Additional history exists CKD PHOS USE SMARTSET 18407 10/24/202310/05, 02/18/2022, 02/17/2022, Additional history exists COVID-19 [...] Additional history exists CKD HGB USE SMARTSET 48855 02/18/202502/18, 02/19/2024, 12/11/2023, Additional history exists O2 [...] this encounter Medical Devices Implanted Type Area Financial Analysis Consultant Device Identifier Shelf Expiration Date Model / Serial / Lot Sut Steel 6 M654g - [id number] Implanted:Qty: 3 on 02/15/2011 at [place] [facility] N/A: Chest DO NOT USE 01/15/2015 M654G / / [id number] Band Magdy 225-241 - [id number] Implanted:Qty: 1 on 02/15/2011 at OR [facility] N/A: Chest [employer] 225-241 / / [id number] Sut Steel 6 M654g - [id number] Implanted:Qty: 1 on 02/15/2011 at OR [facility] N/A: Chest DO NOT USE 07/21/2015 M654G / / [id number] documented as of this encounter Visit Diagnoses Diagnosis Type 2 diabetes mellitus with stage 3a chronic kidney disease, with long-term current use of insulin (HCC)- Primary documented in this encounter Advance Directives Documents on File Type Date Recorded Patient Cyber Legal Advisor Expl anation DURAN 05/06/2018 POLST * Full [...] Child Health Care Agent Care Teams Commercial Analyst Relationship Specialty Start Date End Date Brian Domínguez MD [address] [facility] [place] [address] PCP - General Family Medicine 07/16/17 documented as of this encounter
--- OUTSIDE RECORDS SUMMARY | 2024-05-24 17:02 | External Medical Summary | Summary of Care ---
Author Name Unknown Organization [facility] Address [address] [facility] [address] Phone [phone] Care Team Providers Care Food Vendor Name Role Phone Brian Domínguez MD Primary Care Provider +1- [phone] Encounter Details Date Type Department Care Team (Late st Contact Info) Description 04/22/2024 Telephone Urology, [facility] 132 [facility] [place] [id number] Alfredo Panda MD [address] [place] [address] [...] Status venlafaxine XR (EFFEXOR XR) 150 MG [id number]:Dep ression Take 1 Cap by mouth daily. [...] Kit 11/18/2017 Active Blood Glucose Monitoring Suppl (Talari NetworksTOUCH VERIO) w/Device KIT Use as directed. Use as directed. 1 Kit 10/31/2018 Active Spacer/Aero-Holding Chambers WISAM Use with inhaler. Wheezing/bronchitis . 1 Device 04/08/2019 Active Lancet Devices (Talari NetworksTOUCH DELICA LANCING DEV) MISC Use four times [...] Information Patient not taking.Reported on 03/22/2024 Nystatin 279243 UNIT/GM External Powder (Nystop)Indications :Candidal intertrigo Apply topically to affected area 3 times a day. Apply to right breast until rash resolved. 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 Pt also to see uro-screen making supervisor and ID Acute cystitis without hematuria [...] stenosis 10/31/2010 08/28/2018 Acute coronary syndrome 10/30/201001/04 [facility] Research Other*[id number] 02/02/2010 04/18/2014 Overview: Karen Registry, Dr Joel [...] Protocol #2. 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 Please advise if more notes are needed. Thank you! * Telephone Encounter - Alfredo Panda MD - 04/23/2024 12:45 PM EDT Noted. Let's obtain records once available. Thx, HM * Telephone Encounter - Hue Coates LPN - 04/22/2024 8:[address] Panda Received fax from [facility] that patient was admitted to [facility] 04/20/24 for AMS and respiratory failure. Just FYI. Thank you Yudith documented in this encounter Plan of Treatment Upcoming Encounters Date Type Department Care Team (Late st Contact Info) Description 04/29/2024 2:30 PM EDT Home Visit [facility], [facility] [address] [facility] [place] [address] Al Doyle, RN 132 [facility] [place] [address] 05/03/2024 2:00 PM EDT Procedure Only Urology, [facility] [address] [facility] [place] [address] Alfredo Panda MD [address] [place] [address] 05/27/2024 10:30 AM EST Scheduled Telephone [facility], [facility] [address] [facility] [place] [address] Jesusita Saenz RDN [address] [facility] [address] 06/08/2024 6:00 PM EST Office Visit [facility] [address] [place] [address] Brian Domínguez MD [address] [place] [address] 06/23/2024 11:45 AM EST Office Visit Urology, [facility] [address] [facility] [place] [address] Alfredo Panda MD [address] [place] [address] Scheduled Procedures Name Priority Associated Diagnoses Date/Ti [...] Additional history exists CKD PHOS USE SMARTSET 41237 10/24/202310/05, 02/18/2022, 02/17/2022, Additional history exists COVID-19 [...] Additional history exists CKD HGB USE SMARTSET 86174 02/18/202502/18, 02/19/2024, 12/11/2023, Additional history exists O2 [...] this encounter Medical Devices Implanted Type Area Feller Seam Operator Device Identifier Shelf Expiration Date Model / Serial / Lot Sut Steel 6 M654g - [id number] Implanted:Qty: 3 on [place] [facility] [place]: Chest DO NOT USE 01/15/2015 M654G / / [id number] Band Magdy 225-241 - [id number] Implanted:Qty: 1 on 02/15/2011 [place] [facility] [place]/A: Chest [employer] 225-241 / / [id number] Sut Steel 6 M654g - [id number] Implanted:Qty: 1 on 02/15/2011 at [place] [facility] N/A: Chest DO NOT USE 07/21/2015 M654G / / [id number] documented as of this encounter Advance Directives Documents on File Type Date Recorded Patient Director Of Plant Operations Expl anation POLST 05/06/2018 POLST * Full [...] Adult Child Health Care Agent Care Teams Food Vendor Relationship Specialty Start Date End Date Brian Domínguez MD [address] [place] [address] PCP - General Family Medicine 07/16/17 documented as of this encounter
--- OUTSIDE RECORDS SUMMARY | 2024-05-24 17:03 | External Medical Summary | Summary of Care ---
Author Name Unknown Organization [facility] Address [address] [place] [address] Phone [phone] Care Team Providers Care Press Smith Helper Name Role Phone Brian Domínguez MD Primary Care Provider +1- [phone] Reason for Visit * Reason Onset Date Comments Advice 04/20/2024 Lmtcb 04/20, myg 04/21 Appointment 04/20/2024 Encounter Details Date Type Department Care Team (Late st Contact Info) Description 04/20/2024 Telephone Urology, [facility] [address] [place], [place] [id number] Services, Scheduling [address] [place] [address] Advice (Lmtcb 04/20, myg 04/21); Appointment Allergies Active Allergy Reactions Criticality Noted Date Comments Propoxyphene Hcl Rash Low 10/29/2010 Fentanyl Diarrhea Low 04/26/2010 anxiety Methocarbamol Medium 10/05/2020 Other reaction(s): Delirium Methocarbamol Low 04/15/2007 Zolpidem Low 10/05/2020 Other reaction(s): Confusion documented as of this encounter (statuses as of 04/22/2024) Medications Medication Sig Dispensed Refills Start Date End Date Status venlafaxine XR (EFFEXOR XR) 150 MG GW14Hlliixnlfwh:Dep ression Take 1 Cap by mouth daily. [...] Kit 11/18/2017 Active Blood Glucose Monitoring Suppl (Flavorvanil VERIO) w/Device KIT Use as directed. Use as directed. 1 Kit 10/31/2018 Active Spacer/Aero-Holding Chambers WISAM Use with inhaler. Wheezing/bronchitis . 1 Device 04/08/2019 Active Lancet Devices (NuzzelTOUCH DELICA LANCING DEV) MISC Use four times [...] Information Patient not taking.Reported on 03/22/2024 Nystatin 570437 UNIT/GM External Powder (Nystop)Indications :Candidal intertrigo Apply topically to affected area 3 times a day. Apply to right breast until rash resolved. 30 g 10/16/2023 Active Nystatin 079967 UNIT/ML Mouth/Throat Suspension SWISH AND SWALLOW 5ML IN THE MORNING AND 5ML AT NOON AND 5 ML IN THE EVENING AND 5ML BEFORE BEDTIME, FOR THRUSH 240 mL 1 10/16/2023 Active Vitamin D (Ergocalciferol) 1.25 MG (84277 UT) Oral Capsule (Drisdol)Indication s:Vitamin D deficiency [...] Oral Tablet (Demadex)Indication s:Atherosclerotic heart disease of [place] coronary artery with other forms of angina [...] as of this encounter (statuses as of 04/22/2024) Active Problems Problem Noted Date Diagnosed Date [...] encounter 01/06/2023 Coronary artery disease invo lving [place] coronary artery of [place] heart without angina pectoris 11/15/2021 Last Assessment [...] at goal, continue same Urge incontinence 03/27/2021 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 Pt also to see uro-manager business and ID Acute cystitis without hematuria 03/27/2021 07/08/2022 Pelvic pain 03/27/2021 02/03/2024 Type 2 diabetes mellitus wit h diabetic neuropathy 09/07/2018 11/07/2023 Overview: duplicate Mild protein-calorie malnutrition 05/07/2018 04/29/2019 Diabetes mellitus with neuropathy 05/06/2018 09/07/2018 Other cirrhosis of liver 05/06/2018 Atherosclerotic heart diseas e of [place] coronary artery with other forms of angina [...] stenosis 10/31/2010 08/28/2018 Acute coronary syndrome 10/30/201001/04 [facility] Research Other*[id number] 02/02/2010 04/18/2014 Overview: Karen Registry, Dr Joel [...] as of this encounter (statuses as of 04/22/2024) Immunizations Name Administration Dates Next Due COVID-19 [...] Encounter - Hue Coates LPN - 04/22/2024 9:55 AM EDT Patient was admitted to [facility] 04/20/24. New telephone encounter sent to Dr Panda this morning as FYI. * Telephone Encounter - Hue Coates LPN [...] come in and can be reached at [phone] documented in this encounter Plan of Treatment Upcoming Encounters Date Type Department Care Team (Late st Contact Info) Description 04/23/2024 10:30 AM EDT Scheduled Telephone [facility], [facility] [address] [facility] [place] [address] Jesusita Saenz, RDN [address] [facility] [place] [address] 04/29/2024 2:30 PM EDT Home Visit [facility], [facility] 132 [facility] [place] [address] Al Doyle, KAT 132 [facility] [place] [address] 05/03/2024 2:00 PM EDT Procedure Only Urology, [facility] [address] [facility] [place] [address] Alfredo Panda MD [address] [place] [address] 06/08/2024 6:00 PM EST Office Visit [facility] [address] [place] [address] Brian Domínguez MD [address] [place] [address] 06/23/2024 11:45 AM EST Office Visit Urology, [facility] [address] [facility] [place] [address] Alfredo Panda MD [address] [place] [address] Scheduled Procedures Name Priority Associated Diagnoses Date/Ti [...] Additional history exists CKD PHOS USE SMARTSET 20558 10/24/202310/05, 02/18/2022, 02/17/2022, Additional history exists COVID-19 [...] Additional history exists CKD HGB USE SMARTSET 14158 02/18/202502/18, 02/19/2024, 12/11/2023, Additional history exists O2 [...] encounter Medical Devices Implanted Type Area Medical Liaison Device Identifier Shelf Expiration Date Model / Serial / Lot Sut Steel 6 M654g - [id number] Implanted:Qty: 3 on 02/15/[address] [facility] N/A: Chest DO NOT USE 01/15/2015 M654G / / [id number] [facility] Magdy 225-241 - [id number] Implanted:Qty: 1 on 02/15/[address] [facility] N/A: Chest [employer] 225-241 / / [id number] Sut Steel 6 M654g - [id number] Implanted:Qty: 1 on 02/15/[address] [facility] N/A: Chest DO NOT USE 07/21/2015 M654G / / [id number] documented as of this encounter Advance Directives Documents on File Type Date Recorded Patient Hollow Tile Partition Erector Expl anation DURAN 05/06/2018 POLST * Full [...] Agents on File Name Relationship Healthcare Agent [facility] Communication Carolyn Goldmangerard Adult Child Health Care Agent Care Teams Press Smith Helper Relationship Specialty Start Date End Date Brian Domínguez MD [address] [place] [address] PCP - General Family Medicine 07/16/17 documented as of this encounter
--- OUTSIDE RECORDS SUMMARY | 2024-05-24 17:03 | External Medical Summary | Summary of Care ---
Author Name Unknown Organization [facility] Address [address] [facility] [address] Phone [phone] Care Team Providers Care Fitness Coach Name Role Phone Brian Domínguez MD Primary Care Provider +1- [phone] Encounter Details Date Type Department Care Team (Late st Contact Info) Description 04/22/2024 Telephone Urology, [facility] 132 [facility] [place] [id number] Alfredo Panda MD [address] [place] [address] [...] Status venlafaxine XR (EFFEXOR XR) 150 MG ET27Zrhukomgwat:Dep ression Take 1 Cap by mouth daily. [...] Kit 11/18/2017 Active Blood Glucose Monitoring Suppl ([employer]TOUCH VERIO) w/Device KIT Use as directed. Use as directed. 1 Kit 10/31/2018 Active Spacer/Aero-Holding Chambers WISAM Use with inhaler. Wheezing/bronchitis . 1 Device 04/08/2019 Active Lancet Devices ([employer]TOUCH DELICA LANCING DEV) MISC Use four [...] Information Patient not taking.Reported on 03/22/2024 Nystatin 646358 UNIT/GM External Powder (Nystop)Indications :Candidal intertrigo Apply topically to affected area 3 times a day. Apply to right breast until rash resolved. 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 Pt also to see uro-auxiliary powerplant operator and ID Acute cystitis without hematuria [...] stenosis 10/31/2010 08/28/2018 Acute coronary syndrome 10/30/201001/04 [facility] Research Other*[id number] 02/02/2010 04/18/2014 Overview: Karen Registry, Dr Joel [...] AM EDT Dr Panda Received fax from [facility] that patient was admitted to [facility] 04/20/24 for AMS and respiratory failure. Just FYI. Thank you Yudith documented in this encounter Plan of Treatment Upcoming Encounters Date Type Department Care Team (Late st Contact Info) Description 04/23/2024 10:30 AM EDT Scheduled Telephone [facility], [facility] [address] [facility] [place] [address] Jesusita Saenz RDN [address] [facility] [place] [address] 04/29/2024 2:30 PM EDT Home Visit [facility], [facility] 132 [facility] [place] [address] Al Doyle, RN 132 [facility] [place] [address] 05/03/2024 2:00 PM EDT Procedure Only Urology, [facility] [place] [address] Alfredo Panda MD [address] [place] [address] 06/08/2024 6:00 PM EST Office Visit [facility] [address] [place] [phone] Brian Domínguez MD [address] [place] [address] 06/23/2024 11:45 AM EST Office Visit Urology, [facility] 132 [facility] [place] [address] Alfredo Panda MD [address] [place] [address] Scheduled Procedures Name Priority Associated Diagnoses Date/Ti [...] Additional history exists CKD PHOS USE SMARTSET 24712 10/24/202310/05, 02/18/2022, 02/17/2022, Additional history exists COVID-19 Vaccine ( season) 2024 06/10/2021, 08/29/2020, 08/01/2020 Colonoscopy 05/20/2024 05/20/2014 Colorectal Cancer Screening 05/20/2024 TSH 06/17/2024 06/17/2023, 05/08, 02/13/2023, Additional history exists GFR 08/21/2024 02/19/2024, /12/2023, 08/04/2023, Additional history exists HbA1c 08/21/2024 02/19/2024, 06/0 12/2023, 10/17/2023, Additional history exists Diabetic Foot Exam 10/15/2024 10/16/2023, 1 07/22/2019, 02/22/2019, Additional history exists Albumin/Creatinine Ratio 11/03/2024 024, 10/23/2022, 07/17/2022, Additional history exists CKD HGB USE SMARTSET 20544 02/18/202502/18, 02/19/2024, 12/11/2023, Additional history exists O2 [...] this encounter Medical Devices Implanted Type Area Pipe And Test Supervisor Device Identifier Shelf Expiration Date Model / Serial / Lot Sut Bob 6 M654g - [id number] Implanted:Qty: 3 on 02/15/2011 at [place] [facility] [place]A: Chest DO NOT USE 01/15/2015 M654G / / [id number] Band [facility] 225-241 - [id number] Implanted:Qty: 1 on 02/15/2011 [place] [facility] [place]A: Chest [employer] 225-241 / / [id number] Sut Steel 6 M654g - [id number] Implanted:Qty: 1 on 02/15/2011 at [place] [facility] [place]A: Chest DO NOT USE 07/21/2015 M654G / / [id number] documented as of this encounter Advance Directives Documents on File Type Date Recorded Patient 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
--- OUTSIDE RECORDS SUMMARY | 2024-05-24 17:03 | External Medical Summary | Summary of Care ---
Author Name Unknown Organization [facility] Address [address] [place] [address] Phone [phone] Care Team Providers Care Water Aerobics Instructor Name Role Phone Brian Domínguez MD Primary Care Provider +1- [phone] Encounter Details Date Type Department Care Team (Late st Contact Info) Description 04/23/2024 Population Health External Data Unspecified Department Allergies Active Allergy Reactions Criticality Noted Date Comments Propoxyphene Hcl Rash Low 10/29/2010 Fentanyl Diarrhea Low 04/26/2010 anxiety Methocarbamol Medium 10/05/2020 Other reaction(s): Delirium Methocarbamol Low 04/15/2007 Zolpidem Low 10/05/2020 Other reaction(s): Confusion documented as of this encounter (statuses as of 04/23/2024) Medications Medication Sig Dispensed Refills Start Date End Date Status venlafaxine XR (EFFEXOR XR) 150 MG [id number]:Dep ression Take 1 Cap by mouth daily. [...] Kit 11/18/2017 Active Blood Glucose Monitoring Suppl (ONETOUCH [...] Information Patient not taking.Reported on 03/22/2024 Nystatin [id number] UNIT/GM External Powder (Nystop)Indications :Candidal intertrigo Apply topically to affected area 3 times a day. Apply to right breast until rash resolved. 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 Pt also to see uro-shaper and presser and ID Acute cystitis without hematuria 03/27/2021 [...] stenosis 10/31/2010 08/28/2018 Acute coronary syndrome 10/30/201001/04 [place] Research Other*[id number] 02/02/2010 04/18/2014 Overview: Karen Registry, Dr Joel [...] thrombosis 06/17/2006 01/21/2014 [facility] current use of ant icoagulant therapy 06/17/2006 [...] AM EDT Scheduled Telephone [facility], [facility] [address] [facility] [place] [address] Jesusita Saenz, MISSY [address] [facility] [address] 04/29/2024 2:30 PM EDT Home Visit [facility], [facility] [address] [facility] [place] [address] Al Doyle, RN [address] [facility] [place] [address] 05/03/2024 2:00 PM EDT Procedure Only Urology, [facility] 132 [facility] [place] [address] Alfredo Panda MD [address] [place] [address] 06/08/2024 6:00 PM EST Office Visit [place] [address] [facility] [place] [address] Brian Domínguez MD [address] [facility] [address] 06/23/2024 11:45 AM EST Office Visit Urology, [facility] [address] [facility] [place] [address] Alfredo Panda MD [address] [place] [address] Scheduled Procedures Name Priority Associated Diagnoses [...] Additional history exists CKD PHOS USE SMARTSET 16254 10/24/202310/05, 02/18/2022, 02/17/2022, Additional history exists COVID-19 [...] Additional history exists CKD HGB USE SMARTSET 78702 02/18/202502/18, 02/19/2024, 12/11/2023, Additional history exists O2 [...] this encounter Medical Devices Implanted Type Area Shaper Hand Device Identifier Shelf Expiration Date Model / Serial / Lot Sut Steel 6 M654g - [id number] Implanted:Qty: 3 on 02/15/2011 at [place] [facility] [place] N/A: Chest DO NOT USE 01/15/2015 M654G / / [id number] Band [facility] 225-241 - [id number] Implanted:Qty: 1 on 02/15/2011 at OR [facility] N/A: Chest [employer] 225-241 / / [id number] Sut Steel 6 M654g - [id number] Implanted:Qty: 1 on 02/15/2011 at OR [facility] N/A: Chest DO NOT USE 07/21/2015 M654G / / [id number] documented as of this encounter Advance Directives Documents on File Type Date Recorded Patient Detention Officer Expl anation POLST 05/06/2018 POLST * [...] Agents on File Name Relationship Healthcare Agent [facility] p Communication Carolyn Ballard Adult Child Health Care Agent Care Teams Water Aerobics Instructor Relationship Specialty Start Date End Date Brian Domínguez MD [address] [place] [address] PCP - General Family Medicine 07/16/17 documented as of this encounter
--- OUTSIDE RECORDS SUMMARY | 2024-05-24 17:04 | External Medical Summary | Summary of Care ---
Author Name Unknown Organization [facility] Address [address] [facility] [place] [address] Phone [phone] Care Team Providers Care Animal Therapist Name Role Phone Brian Domínguez MD Primary Care Provider +1- [phone] Reason for Visit * Reason Onset Date Comments [facility]: Maintenance 04/21/2024 Encounter Details Date Type Department Care Team (Late st Contact Info) Description 04/21/2024 Telephone [facility], [facility] [address] [place] [address] Al Doyle, RN [address] [place] [address] [facility]: Maintenance Allergies Active Allergy Reactions Criticality Noted Date Comments Propoxyphene Hcl Rash Low 10/29/2010 Fentanyl Diarrhea Low 04/26/2010 anxiety Methocarbamol Medium 10/05/2020 Other reaction(s): Delirium Methocarbamol Low 04/15/2007 Zolpidem Low 10/05/2020 Other reaction(s): Confusion documented as of this encounter (statuses as of 04/21/2024) Medications Medication Sig Dispensed Refills Start Date End Date Status venlafaxine XR (EFFEXOR XR) 150 MG [id number]:Dep ression Take 1 Cap by mouth daily. [...] Kit 11/18/2017 Active Blood Glucose Monitoring Suppl (F3 FoodsUCH VERIO) w/Device KIT Use as directed. Use as directed. 1 Kit 10/31/2018 Active Spacer/Aero-Holding Chambers WISAM Use with inhaler. Wheezing/bronchitis . 1 Device 04/08/2019 Active Lancet Devices (JustUs LtdTOUCH DELICA LANCING DEV) MISC Use four [...] Information Patient not taking.Reported on 03/22/2024 Nystatin [id number] UNIT/GM External Powder (Nystop)Indications :Candidal intertrigo Apply topically to affected area 3 times a day. Apply to right breast until rash resolved. 30 g 10/16/2023 Active Nystatin 707957 UNIT/ML Mouth/Throat Suspension SWISH AND SWALLOW 5ML IN THE MORNING AND 5ML AT NOON AND 5 ML IN THE EVENING AND 5ML BEFORE BEDTIME, FOR THRUSH 240 mL 1 10/16/2023 Active Vitamin D (Ergocalciferol) 1.25 MG (89532 UT) Oral Capsule (Drisdol)Indication s:Vitamin D deficiency [...] Tablet (Demadex)Indication s:Atherosclerotic heart disease of [place] coronary artery with other forms of [...] as of this encounter (statuses as of 04/21/2024) Active Problems Problem Noted Date Diagnosed Date [...] encounter 01/06/2023 Coronary artery disease invo lving [place] coronary artery of [place] heart without angina pectoris 11/15/2021 Last Assessment [...] 05/04/2004 Overview: Updated due to amp error Qzqjbto-Zaegf-Uksrz disease 12/31/2002 Last Assessment & Plan: Frequent falls Home PT and OT continue GONZALEZ (nonalcoholic steatohepatitis) documented as of this encounter (statuses as of 04/21/2024) Resolved Problems Problem Noted Date Diagnosed Date [...] giving this. Pt also to see uro-laborer electroplating and ID Acute cystitis without hematuria 03/27/2021 07/08/2022 Pelvic pain 03/27/2021 02/03/2024 Type 2 diabetes mellitus wit h diabetic neuropathy 09/07/2018 11/07/2023 Overview: duplicate Mild protein-calorie malnutrition 05/07/2018 04/29/2019 Diabetes mellitus with neuropathy 05/06/2018 09/07/2018 Other cirrhosis of liver 05/06/2018 Atherosclerotic heart diseas e of [place] coronary artery with other forms of [...] stenosis 10/31/2010 08/28/2018 Acute coronary syndrome 10/30/201001/04 [place] Research Other*[id number] 02/02/2010 04/18/2014 Overview: Karen Registry, Dr Joel [...] as of this encounter (statuses as of 04/21/2024) Immunizations Name Administration Dates Next Due COVID-19 [...] Telephone Encounter - Al Doyle RN - 04/21/2024 1:41 PM EDT Performing chart review on pt this AM, and noted that pt had c/o fever, chills when calling to cancel a post-op appt yesterday, scheduled pt to be seen by this RN today for those symptoms. Placed call to pt daughter Carolyn who reports pt is admitted at [facility] currently. documented in this encounter Plan of Treatment Upcoming Encounters Date Type Department Care Team (Late st Contact Info) Description 04/23/2024 10:30 AM EDT Scheduled Telephone [facility], [facility] [address] [place] [address] Jesusita Saenz RDN [address] [facility] [place] [address] 04/29/2024 2:30 PM EDT Home Visit [facility] [place], [facility] [address] [place] [address] Al Doyle, RN [address] [place] [address] 05/03/2024 2:00 PM EDT Procedure Only Urology, [facility] 132 [facility] [place] [address] Alfredo Panda MD [address] [place] [address] 06/08/2024 6:00 PM EST Office Visit [facility] [address] [place] [phone] Brian Domínguez MD [address] [place] [address] 06/23/2024 11:45 AM EST Office Visit Urology, [facility] 132 [facility] [place] [address] Alfredo Panda MD [address] [place] [address] Scheduled Procedures Name Priority Associated Diagnoses Date/Ti [...] Additional history exists CKD PHOS USE SMARTSET 62917 10/24/202310/05, 02/18/2022, 02/17/2022, Additional history exists COVID-19 [...] Additional history exists CKD HGB USE SMARTSET 17532 02/18/202502/18, 02/19/2024, 12/11/2023, Additional history exists O2 [...] encounter Medical Devices Implanted Type Area Manager Parking Device Identifier Shelf Expiration Date Model / Serial / Lot Sut Bob 6 M654g - [id number] Implanted:Qty: 3 on 02/15/2011 [place] [facility] [place] N/A: Chest DO NOT USE 01/15/2015 M654G / / [id number] Band [employer] 225-241 - [id number] Implanted:Qty: 1 on 02/15/2011 at [place] [facility] N/A: Chest [employer] 225-241 / / [id number] Jenna Rojas 6 M654g - [id number] Implanted:Qty: 1 on 02/15/2011 at [place] [facility] [place] N/A: Chest DO NOT USE 07/21/2015 M654G / / [id number] documented as of this encounter Advance Directives Documents on File Type Date Recorded Patient Construction Director Expl anation POLST 05/06/2018 POLST * [...] Child Health Care Agent Care Teams Animal Therapist Relationship Specialty Start Date End Date Brian Domínguez MD [address] [place] [address] PCP - General Family Medicine 07/16/17 documented as of this encounter
--- OUTSIDE RECORDS SUMMARY | 2024-05-24 17:04 | External Medical Summary | Summary of Care ---
Author Name Unknown Organization [facility] Address [address] [place] [address] Phone [phone] Care Team Providers Care Charter Coach Driver Name Role Phone Brian Domínguez MD Primary Care Provider [phone]- [phone] Reason for Visit * Reason Onset Date Comments Advice 04/20/2024 Lmtcb 04/20, myg 04/21 Appointment 04/20/2024 Encounter Details Date Type Department Care Team (Late st Contact Info) Description 04/20/2024 Telephone Urology, [facility] [address] [place], [place] [id number] Services, Scheduling [address] [place] [address] Advice (Lmtcb 04/20, myg 04/21); Appointment Allergies [...] Status venlafaxine XR (EFFEXOR XR) 150 MG [id number]:Dep ression Take 1 Cap by mouth daily. [...] Kit 11/18/2017 Active Blood Glucose Monitoring Suppl (AOBiome VERIO) w/Device KIT Use as directed. Use as directed. 1 Kit 10/31/2018 Active Spacer/Aero-Holding Chambers WISAM Use with inhaler. Wheezing/bronchitis . 1 Device 04/08/2019 Active Lancet Devices (Mesa Air GroupTOUCH DELICA LANCING DEV) MISC Use four [...] Information Patient not taking.Reported on 03/22/2024 Nystatin 399159 UNIT/GM External Powder (Nystop)Indications :Candidal intertrigo Apply topically to affected area 3 times a day. Apply to right breast until rash resolved. 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 Pt also to see uro-mems integration engineer and ID Acute cystitis without hematuria 03/27/2021 07/08/2022 Pelvic pain 03/27/2021 02/03/2024 Type 2 diabetes mellitus wit h diabetic neuropathy 09/07/2018 11/07/2023 Overview: duplicate Mild protein-calorie malnutrition 05/07/2018 04/29/2019 Diabetes mellitus with neuropathy 05/06/2018 09/07/2018 Other cirrhosis of liver 05/06/2018 Atherosclerotic heart diseas e of [place] [...] stenosis 10/31/2010 08/28/2018 Acute coronary syndrome 10/30/201001/04 [place] Research Other*[id number] 02/02/2010 04/18/2014 Overview: Karen Registry, Dr Joel [...] 06/17/2006 01/21/2014 salvage determiner current use of ant icoagulant therapy 06/17/2006 [...] come in and can be reached at [phone] documented in this encounter Plan of Treatment Upcoming Encounters Date Type Department Care Team (Late st Contact Info) Description 04/21/2024 2:30 PM EDT Home Visit [facility], [facility] 132 [facility] [place] [address] Al Doyle, RN [address] [place] [address] 04/23/2024 10:30 AM EDT Scheduled Telephone [facility], [facility] [address] [facility] [place] [address] Jesusita Saenz, RDN [address] [facility] [place] [address] 05/03/2024 2:00 PM EDT Procedure Only Urology, [facility] 132 [facility] [place] [address] Alfredo Panda MD [address] [place] [address] 06/08/2024 6:00 PM EST Office Visit [facility] [address] [place] [phone] Brian Domínguez MD [address] [place] [address] 06/23/2024 11:45 AM EST Office Visit Urology, [facility] [address] [facility] [place] [address] Alfredo Panda MD [address] [place] [address] Scheduled Procedures Name Priority Associated Diagnoses Date/Ti [...] Additional history exists CKD PHOS USE SMARTSET 23467 10/24/202310/05, 02/18/2022, 02/17/2022, Additional history exists COVID-19 [...] Additional history exists CKD HGB USE SMARTSET 37943 02/18/202502/18, 02/19/2024, 12/11/2023, Additional history exists O2 [...] encounter Medical Devices Implanted Type Area Senior Specialist Device Identifier Shelf Expiration Date Model / Serial / Lot Sut Steel 6 M654g - [id number] Implanted:Qty: 3 on 02/15/2011 at [place] [facility] [place] N/A: Chest DO NOT USE 01/15/2015 M654G / / [id number] Band Magdy 225-241 - [id number] Implanted:Qty: 1 on 02/15/2011 at OR [facility] N/A: Chest [employer] 225-241 / / [id number] Sut Steel 6 M654g - [id number] Implanted:Qty: 1 on 02/15/2011 at OR [facility] N/A: Chest DO NOT USE 07/21/2015 M654G / / [id number] documented as of this encounter Advance Directives Documents on File Type Date Recorded Patient Studio Engineer Expl anation POLST 05/06/2018 POLST * [...] Adult Child Health Care Agent Care Teams Charter Coach Driver Relationship Specialty Start Date End Date Brian Domínguez MD [address] [place] [address] PCP - General Family Medicine 07/16/17 documented as of this encounter
[2024-05-24] MEDS ORDERED: ACETAMINOPHEN 325 MG TAB PO PRN (18:26)
[2024-05-24] MEDS ORDERED: GLUCAGON FOR INJ 1 MG VIAL SQ PRN (18:26)
[2024-05-24] MEDS ORDERED: GLUCOSE 40% GEL 15 GM TUBE PO PRN (18:26)
[2024-05-24] MEDS ORDERED: ALBUTEROL HFA 8 GM INHALER INH PRN (18:26)
[2024-05-24] MEDS ORDERED: DEXTROSE 50% 50 ML SYRINGE IV PRN (18:26)
[2024-05-24] MEDS ORDERED: CARBOHYDRATES FOR HYPOGLYCEMIA PO PRN (18:26)
[2024-05-24] MEDS ORDERED: GLUCOSE 10 TAB/TUBE PO PRN (18:26)
[2024-05-24] MEDS ORDERED: Patient's HEIGHT Needed SCH (19:15)
[2024-05-24 19:26] LABS: Magnesium 1.7 mg/dl (1.7-2.4)
[2024-05-24] MEDS: clonazePAM 0.5 MG TAB PO SCH (21:51)
[2024-05-24] MEDS: INSULIN ASPART PER UNIT CHARGE SC SCH (21:51)
[2024-05-24] MEDS: traZODone HCL 50 MG TAB PO SCH (21:51)
[2024-05-24] MEDS: LANTUS PER UNIT CHARGE SQ SCH (21:51)
[2024-05-24] MEDS: HEPARIN SOD 5,000 UNIT/0.5 ML VIAL SQ SCH (21:52)
[2024-05-24] MEDS: lamoTRIgine 25 MG TAB PO SCH (21:53)
[2024-05-24] MEDS: PANTOprazole 40 MG TAB PO SCH (21:54)
[2024-05-24] MEDS: ASCORBIC ACID 500 MG TAB PO SCH (21:54)
[2024-05-24] MEDS: rifAXIMin 550 MG TABLET PO SCH (21:54)
[2024-05-24] MEDS: METOPROLOL SUCC 25MG EXT REL TAB PO SCH (21:56)
[2024-05-24] MEDS: hydrOXYzine HCl 10 MG TAB PO SCH (21:56)
[2024-05-24] MEDS: GABAPENTIN 300 MG CAP PO SCH (21:57)
[2024-05-24] MEDS: POTASSIUM CHLORIDE CRTAB 20 MEQ TABCR PO STA (22:36)
[2024-05-25] MEDS: LEVOTHYROXINE SODIUM 88 MCG TABLET PO SCH (06:23)
--- OUTSIDE RECORDS SUMMARY | 2024-05-25 07:38 | External Medical Summary | Summary of Care ---
Author Name Unknown Organization [facility] Address [address] [place] [facility] [place] [place] [address] Phone [phone] Care Team Providers Care Hardboard Press Operator Name Role Phone Brian Domínguez MD Primary Care Provider [phone]- [phone] Reason for Visit * Reason Onset Date Comments [facility]: Acute 05/24/2024 Encounter Details Date Type Department Care Team (Late st Contact Info) Description 05/24/2024 Telephone [facility], [address] [address] Andie Francois RN [address] [place] [address] [facility]: Acute Allergies Active Allergy Reactions Criticality Noted Date Comments Propoxyphene Hcl Rash Low 10/29/2010 Fentanyl Diarrhea Low 04/26/2010 anxiety Methocarbamol Medium 10/05/2020 Other reaction(s): Delirium Methocarbamol Low 04/15/2007 Zolpidem Low 10/05/2020 Other reaction(s): Confusion documented as of this encounter (statuses as of 05/24/2024) Medications venlafaxine XR (EFFEXOR XR) 150 MG [id number]:De pression Take 1 Cap by mouth daily. With food. 30 Cap 5 09/02/19 17 Active Additional Information Patient taking differently: 225 mgOral Daily(AM),Taking a total of 225 mg, Indications: Takes 225 mg total every morning with food (150 mg tab + 75 mg tab), Reported on 03/03/2023 Blood Glucose Monitoring Suppl (Tribridge-My[employer] GLUCOMETER) w/Device KITIndications:Unc ontrolled type 2 diabetes mellitus without complication, without long-term current use of insulin Use as directed. Use as directed once daily 1 Kit 11/19/19 18 Active Blood Glucose Monitoring Suppl ([employer] VERIO) w/Device KIT Use as directed. Use as directed. 1 Kit 11/01/19 19 Active Spacer/Aero-Holdin g Chambers WISAM Use with inhaler. Wheezing/bronchit is. 1 Device 04/08/20 19 Active Lancet Devices ([employer] DELICA LANCING DEV) MISC Use four times [...] 25 Tablet 5 10/16/19 24 Active Nystatin 077787 UNIT/GM External Powder (Nystop)Indication s:Candidal intertrigo Apply topically to affected area 3 times a day. Apply to right breast until rash resolved. 30 g 10/16/19 24 Active Vitamin D (Ergocalciferol) 1.25 MG (84570 UT) Oral Capsule (Drisdol)Indicatio ns:Vitamin D deficiency [...] Oral Tablet (Demadex)Indicatio ns:Atherosclerotic heart disease of [place] coronary artery with other forms of angina pectoris (HCC),Hypertensive heart disease with chronic diastolic congestive heart failure (HCC) TAKE 1 TABLET BY MOUTH EVERY MORNING - may take an additional tablet if needed for swelling 90 Tablet 03/31/20 24 Active Venlafaxine HCl 100 MG Oral Tablet (Effexor) 1 Tablet. 03/01/20 24 Active Gabapentin 300 MG Oral Capsule (Neurontin)Indicat ions:Lumbar spondylosis TAKE 1 CAPSULE BY MOUTH TWICE DAILY 60 Capsule 5 04/09/20 24 Active oxyCODONE-Acetamin ophen 5-325 MG Oral Tablet (Percocet) Take 1 Tablet by mouth every 8 hours as needed for Pain, Severe. 8 Tablet 04/08/20 24 Active clonazePAM 0.5 MG Oral Tablet (KlonoPIN)Indicati ons:Bipolar I disorder, most recent episode depressed, moderate (HCC) TAKE ONE TABLET BY MOUTH THREE TIMES DAILY 90 Tablet 04/26/20 24 Active Nystatin 034816 UNIT/ML Mouth/Throat Suspension SWISH AND SWALLOW 5ML IN THE MORNING AND 5ML AT NOON AND 5 ML IN THE EVENING AND 5ML BEFORE BEDTIME, FOR THRUSH 240 mL 1 04/26/20 Active Ferrous Sulfate 325 (65 Fe) MG Oral Tablet Delayed Release Take 1 Tablet by mouth. 04/27/20 Active traMADol HCl 50 MG Oral Tablet [...] tab for 2 days 30 Tablet 05/05/20 Active Additional Information Patient not taking.Reported on 05/13/2024 Cetirizine HCl 10 MG Oral Tablet (ZyrTEC) Take 1 Tablet by mouth in the morning. 90 Tablet 3 05/13/20 24 Active Azithromycin 250 MG Oral Tablet (Zithromax Z-Sanchez) Take two tablets by mouth on first day, then 1 tablet daily until gone 6 Tablet 05/13/20 Active Dicyclomine HCl 10 MG Oral Capsule (Bentyl)Indication s:Abdominal pain TAKE 1 CAPSULE BY MOUTH FOUR TIMES DAILY NEEDED 120 Capsule 1 05/19/20 Active documented as of this encounter (statuses as of 05/24/2024) Active Problems Problem Noted Date Diagnosed Date Immunodeficiency 05/13/[address] (myocardial infarction) 05/13/2024 Recurrent UTI 03/23/2024 Pelvic [...] encounter 01/06/2023 Coronary artery disease invo lving [place] coronary artery of [place] heart without angina pectoris 11/15/2021 Assessment & [...] Avoid nephrotoxic drugs Urge incontinence 03/27/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 Pt also to see uro-toxics program officer and ID Assessment & Plan (10/07/2021 1:47 [...] liver 05/06/2018 Atherosclerotic heart diseas e of [place] coronary artery with other forms of angina [...] stenosis 10/31/2010 08/28/2018 Acute coronary syndrome 10/30/201001/04 FARRAR Research Other*[id number] 02/02/2010 04/18/2014 Overview (02/02/2010): [facility], Dr Joel CASAS Obesity, morbid (more [...] as of this encounter (statuses as of 05/24/2024) Immunizations Name Administration Dates Next Due COVID-19 [...] Miscellaneous Notes * Telephone Encounter - Reyna Quiñonez RN - 05/24/2024 10:04 AM EST Call rec'd from pt's dtr reporting she has gotten worse very quickly, is now lethargic and unable to lift her arm. Dtr has EMS on the way. TT to acute nurse with update on cancelled visit. F/u calls addended for post-ED. 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 Background: Patient with hx of copd, HF. Recently was hospitalized for pneumonia and discharged home on azithromycin and prednisone 05/05/24, both of which she completed full course. Pt was seen in PCP office on 05/13 and was given another Rx of azithromycin for increased cough. Also to start zyrtec and use netti pot to help with head congestion. Daughter confirms she has followedthrough with full course of antibiotic and is taking zyrtec daily. Finished azithromycin on 05/17 and since that time has started to cough more and over the weekend started to run a fever. Yesterday temp was 102F. Pt is afebrile this morning. Not using tylenol. Denies known sick contacts. Pulse ox initially 86% on room air this morning. Does not have home oxygen, cpap or bipap. Daughter administered symbicort inhaler and duoneb tx and pulse ox currently 90-92% Assessment: Patient sleeping more than usual. She is awake and alert at present More confused than her baseline Denies any audible wheezing NPC Vitals: 110/68, 98-86, 18, pulse ox 90% on room air. Denies increased swelling or abdominal distention Has suprapubic cath which is draining without issue Isn't eating or drinking much. Daughter unsure of how many ounces of fluid she is taking in each day. Taking xifaxin and lactulose as ordered. Having 2-3 loose bms per day. Last one this morning. Blood sugar this am was 210. Daughter states she usually runs 120-180s in the morning. Taking all meds as ordered. Recommend acute home visit today to assess/provide acute intervention. Per daughter, there goal is to keep patient out of the hospital if at all possible. Would like to try home treatment first. Recommendation: [place] [facility]. Continue monitoring pulse ox closely. Call back if <88% on room air or showing any signs of increased sob. 911 for gasping or difficulty breathing Duoneb every 6 hours as needed for sob, wheezing followed by flutter device Do home covid test-call back if + Mucinex per package instructions Further recommendations pending assessment. Follow up calls x 2 Baseline Assessment Able to performing ADLs at baseline (walking, daily tasks, etc.): No Chief Complaint is related to a chronic condition: Yes Chronic Condition: COPD Chief Complaint is a change in baseline: Yes, increased sob, confusion Patient prescribed oxygen? 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 documented in this encounter Plan of Treatment Upcoming Encounters Date Type Department Care Team (Late st Contact Info) Description 05/24/2024 3:40 PM EST Office Visit Nephrology, [facility] [address] [place] [address] Maurilio Smith MD [address] [facility] [place] [address] 05/25/2024 10:45 AM EST Scheduled Telephone [facility], [facility] [address] [facility] [place] [address] [facility], Nurse [address] [place] [address] 05/26/2024 10:45 AM EST Scheduled Telephone [facility], [facility] [address] [facility] [place] [address] [facility], Nurse [address] [place] [address] 05/27/2024 10:30 AM EST Scheduled Telephone [facility], [facility] [address] [facility] [place] [address] Jesusita Saenz RDN [address] [facility] [place] [address] 06/08/2024 6:00 PM EST Office Visit [facility] [address] [facility] [address] Brian Domínguez MD [address] [place] [address] 06/23/2024 11:45 AM EST Office Visit Urology, [facility] [address] [facility] [place] [address] Alfredo Panda MD [address] [facility] [place] [address] 06/24/2024 2:30 PM EST [facility] Visit [facility] [place], [facility] [address] [facility] [place] [address] Al Doyle, KAT [address] [facility] [place] [address] Scheduled Procedures Name Priority Associated Diagnoses Date/Ti [...] Additional history exists CKD PHOS USE SMARTSET 15097 10/24/202310/05, 02/18/2022, 02/17/2022, Additional history exists COVID-19 [...] COPD 04/08/2025 04/08/2024 CKD HGB USE SMARTSET 27984 04/29/202504/29, 04/29/2024, 02/19/2024, Additional history exists DTap/Tdap [...] this encounter Medical Devices Implanted Type Area Leather Fitter Device Identifier Shelf Expiration Date Model / Serial / Lot Sut Steel 6 M654g - [id number] Implanted:Qty: 3 on 02/15/2011 [place] [facility] [place]: Chest DO NOT USE 01/15/2015 M654G / / [id number] Gaston Fuentesham 225-241 - [id number] Implanted:Qty: 1 on 02/15/2011 at [place] [facility] [place] N/A: Chest [employer] 225-241 / / [id number] Sut Steel 6 M654g - [id number] Implanted:Qty: 1 on 02/15/2011 at [place] [facility] [place] N/A: Chest DO NOT USE 07/21/2015 M654G / / [id number] documented as of this encounter Advance Directives Documents on File Type Date Recorded 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
--- OUTSIDE RECORDS SUMMARY | 2024-05-25 07:38 | External Medical Summary | Summary of Care ---
Author Name Unknown Organization [facility] Address [address] [place] [facility] [place] [place] [address] Phone [phone] Care Team Providers Care Cdl B Driver Name Role Phone Brian Domínguez MD Primary Care Provider +1- [phone] Reason for Visit * Reason Onset Date Comments [facility]: Acute 05/24/2024 Encounter Details Date Type Department Care Team (Late st Contact Info) Description 05/24/2024 Telephone [facility], [address] [address] Andie Francois RN [address] [place] [address] [facility]: Acute Allergies Active Allergy Reactions Criticality Noted Date Comments Propoxyphene Hcl Rash Low 10/29/2010 Fentanyl Diarrhea Low 04/26/2010 anxiety Methocarbamol Medium 10/05/2020 Other reaction(s): Delirium Methocarbamol Low 04/15/2007 Zolpidem Low 10/05/2020 Other reaction(s): Confusion documented as of this encounter (statuses as of 05/24/2024) Medications venlafaxine XR (EFFEXOR XR) 150 MG [id number]:De pression Take 1 Cap by mouth daily. With food. 30 Cap 5 09/02/19 17 Active Additional Information Patient taking differently: 225 mgOral Daily(AM),Taking a total of 225 mg, Indications: Takes 225 mg total every morning with food (150 mg tab + 75 mg tab), Reported on 03/03/2023 Blood Glucose Monitoring Suppl ([employer] GLUCOMETER) w/Device KITIndications:Unc ontrolled type 2 diabetes mellitus without complication, without long-term current use of insulin Use as directed. Use as directed once daily 1 Kit 11/19/19 18 Active Blood Glucose Monitoring Suppl ([employer] VERIO) w/Device KIT Use as directed. Use as directed. 1 Kit 11/01/19 19 Active Spacer/Aero-Holdin g Chambers WISAM Use with inhaler. Wheezing/bronchit is. 1 Device 04/08/20 19 Active Lancet Devices ([employer] DELICA LANCING DEV) MISC Use four times [...] 25 Tablet 5 10/16/19 24 Active Nystatin 014063 UNIT/GM External Powder (Nystop)Indication s:Candidal intertrigo Apply topically to affected area 3 times a day. Apply to right breast until rash resolved. 30 g 10/16/19 24 Active Vitamin D (Ergocalciferol) 1.25 MG (10321 UT) Oral Capsule (Drisdol)Indicatio ns:Vitamin D deficiency [...] Oral Tablet (Demadex)Indicatio ns:Atherosclerotic heart disease of [place] coronary artery with other forms of angina [...] DAILY 90 Tablet 04/26/20 24 Active Nystatin 938574 UNIT/ML Mouth/Throat Suspension SWISH AND SWALLOW 5ML [...] Noted Date Diagnosed Date Immunodeficiency 05/13/2024 Old [place] (myocardial infarction) 05/13/2024 Recurrent UTI 03/23/2024 Pelvic [...] encounter 01/06/2023 Coronary artery disease invo lving [place] coronary artery of [place] heart without angina pectoris 11/15/2021 Assessment & [...] weekly Avoid nephrotoxic drugs Urge incontinence 03/27/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 Recommendation: Routing to care team, [facility] for review / recommendations. Continue monitoring pulse [...] Acute Appointment scheduled for same day: Yes Child Care Specialist Provider Name: Connie Mccullough Treatment plan until appointment: per treatment plan above Call back instructions provided to patient. documented in this encounter Plan of Treatment Upcoming Encounters Date Type Department Care Team (Late st Contact Info) Description 05/24/2024 3:40 PM EST Office Visit Nephrology, [facility] [address] [place] [address] Maurilio Smith MD [address] [facility] [place] [address] 05/25/2024 10:45 AM EST Scheduled Telephone [facility], [facility] [address] [facility] [place] [address] [facility], Nurse [address] [place] [address] 05/26/2024 10:45 AM EST Scheduled Telephone [facility], [facility] [address] [facility] [place] [address] [facility], Nurse [address] [place] [address] 05/27/2024 10:30 AM EST Scheduled Telephone [facility], [facility] [address] [facility] [place] [address] Jesusita Saenz RDN [address] [facility] [place] [address] 06/08/2024 6:00 PM EST Office Visit [facility] [address] [facility] [address] Brian Domínguez MD [address] [place] [address] 06/23/2024 11:45 AM EST Office Visit Urology, [facility] 132 [facility] [place] [address] Alfredo Panda MD [address] [facility] [place] [address] 06/24/2024 2:30 PM EST [facility] Visit [facility] [place], [facility] 132 [facility] [place] [address] Al Doyle, KAT [address] [facility] [place] [address] Scheduled Procedures Name Priority Associated Diagnoses Date/Ti [...] Additional history exists CKD PHOS USE SMARTSET 32794 10/24/202310/05, 02/18/2022, 02/17/2022, Additional history exists COVID-19 [...] COPD 04/08/2025 04/08/2024 CKD HGB USE SMARTSET 01676 04/29/202504/29, 04/29/2024, 02/19/2024, Additional history exists DTap/Tdap [...] this encounter Medical Devices Implanted Type Area Nonprofit Financial Controller Device Identifier Shelf Expiration Date Model / Serial / Lot Sut Steel 6 M654g - [id number] [place]planted:[place] 3 on [place] [facility] [place]: Chest DO NOT USE 01/15/2015 M654G / / [id number] Gaston Fuentesham 225-241 - [id number] Implanted:Qty: 1 on 02[place]2011 [place] [facility] [place]: Chest [employer] 225-241 / / [id number] Sut Steel 6 M654g - [id number] Implanted:Qty: 1 on 02[place]2011 [place] [facility] [place]: Chest DO NOT USE 07/21/2015 M654G / / [id number] documented as of this encounter Advance Directives Documents on File Type Date Recorded 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
--- OUTSIDE RECORDS SUMMARY | 2024-05-25 07:39 | External Medical Summary | Summary of Care ---
Author Name Unknown Organization [facility] Address [address] [place] [address] Phone [phone] Care Team Providers Care Cognos Report Developer Name Role Phone Brian Domínguez MD Primary Care Provider [phone]- [phone] Reason for Visit * Reason Onset Date Comments [facility]: Acute 05/24/2024 Encounter Details Date Type Department Care Team (Late st Contact Info) Description 05/24/2024 Telephone [facility], [address] [address] Andie Francois RN [address] [place] [address] [facility]: Acute Allergies Active Allergy Reactions Criticality Noted Date Comments Propoxyphene Hcl Rash Low 10/29/2010 Fentanyl Diarrhea Low 04/26/2010 anxiety Methocarbamol Medium 10/05/2020 Other reaction(s): Delirium Methocarbamol Low 04/15/2007 Zolpidem Low 10/05/2020 Other reaction(s): Confusion documented as of this encounter (statuses as of 05/24/2024) Medications venlafaxine XR (EFFEXOR XR) 150 MG LE51Pjpuiaarlih:De pression Take 1 Cap by mouth daily. With food. 30 Cap 5 09/02/19 17 Active Additional Information Patient taking differently: 225 mgOral Daily(AM),Taking a total of 225 mg, Indications: Takes 225 mg total every morning with food (150 mg tab + 75 mg tab), Reported on 03/03/2023 Blood Glucose Monitoring Suppl (Tachyus-Ipselex GLUCOMETER) w/Device KITIndications:Unc ontrolled type 2 diabetes mellitus without complication, without long-term current use of insulin Use as directed. Use as directed once daily 1 Kit 11/19/19 18 Active Blood Glucose Monitoring Suppl (OpenSpirit VERIO) w/Device KIT Use as directed. Use as directed. 1 Kit 11/01/19 19 Active Spacer/Aero-Holdin g Chambers WISAM Use with inhaler. Wheezing/bronchit is. 1 Device 04/08/20 19 Active Lancet Devices (OpenSpirit DELICA LANCING DEV) MISC Use four times [...] 25 Tablet 5 10/16/19 24 Active Nystatin 419484 UNIT/GM External Powder (Nystop)Indication s:Candidal intertrigo Apply topically to affected area 3 times a day. Apply to right breast until rash resolved. 30 g 10/16/19 24 Active Vitamin D (Ergocalciferol) 1.25 MG (81015 UT) Oral Capsule (Drisdol)Indicatio ns:Vitamin D deficiency [...] Oral Tablet (Demadex)Indicatio ns:Atherosclerotic heart disease of lime coronary artery with other forms of angina [...] DAILY 90 Tablet 04/26/20 24 Active Nystatin 693603 UNIT/ML Mouth/Throat Suspension SWISH AND SWALLOW 5ML [...] Noted Date Diagnosed Date Immunodeficiency 05/13/2024 Old [place] (myocardial infarction) 05/13/2024 Recurrent UTI 03/23/2024 Pelvic [...] encounter 01/06/2023 Coronary artery disease invo lving lime coronary artery of lime heart without angina pectoris 11/15/2021 Assessment & [...] weekly Avoid nephrotoxic drugs Urge incontinence 03/27/2021 long term care pharmacist (current) use of insulin 09/29/2019 Diabetic gastroparesis [...] Overview (09/28/2019): Updated due to amp error Skqerln-Entau-Lckhh disease 12/31/2002 Assessment & Plan (12/31/2021 6:19 [...] giving this. 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 Recommendation: Routing to care team, [facility] for review / recommendations. 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 documented in this encounter Plan of Treatment Upcoming Encounters Date Type Department Care Team ([place] Contact Info) Description 05/24/2024 2:00 PM EST Home Visit [facility], [facility] [address] [facility] [address] Connie Mccullough, RN [address] [facility] [place] [address] 05/24/2024 3:40 PM EST Office Visit Nephrology, [facility] [address] [place] [address] Maurilio Smith MD [address] [facility], [place] [id number] 05/25/2024 10:45 AM EST Scheduled Telephone [facility], [facility] [address] [facility] [place] [address] [facility], Nurse [facility] [address] [facility] [address] 05/26/2024 10:45 AM EST Scheduled Telephone [facility], [facility] [address] [facility] [address] [facility], Nurse [facility] [address] [facility] [place] [address] 05/27/2024 10:30 AM EST Scheduled Telephone [facility], [facility] [address] [facility] [place] [address] Jesusita Saenz, KELLYN [address] [facility] [place] [address] 06/08/2024 6:00 PM EST Office Visit Family Practice, [facility] [address] [facility] [address] Brian Domínguez MD [address] [facility] [place] [address] 06/23/2024 11:45 AM EST Office Visit Urology, [facility] [address] [place] [address] Alfredo Panda MD [address] [place] [address] 06/24/2024 2:30 PM EST Home Visit [facility], [facility] [address] [place] [address] Al Doyle, KAT [address] [place] [address] Scheduled Procedures Name Priority Associated Diagnoses Date/Ti [...] Additional history exists CKD PHOS USE SMARTSET 31545 10/24/202310/05, 02/18/2022, 02/17/2022, Additional history exists COVID-19 [...] COPD 04/08/2025 04/08/2024 CKD HGB USE SMARTSET 77455 04/29/202504/29, 04/29/2024, 02/19/2024, Additional history exists DTap/Tdap [...] this encounter Medical Devices Implanted Type Area Wood Polisher Device Identifier Shelf Expiration Date Model / Serial / Lot Sut Steel 6 M654g - [id number] Implanted:Qty: 3 on 02/15/2011 at [facility] N/A: Chest DO NOT USE 01/15/2015 M654G / / [id number] [facility] 225-241 - [id number] Implanted:Qty: 1 on 02/15/2011 at OR [facility] N/A: Chest [employer] 225-241 / / [id number] Sut Steel 6 M654g - [id number] Implanted:Qty: 1 on 02/15/2011 at OR [facility] N/A: Chest DO NOT USE 07/21/2015 M654G / / [id number] documented as of this encounter Advance Directives Documents on File Type Date Recorded 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
[2024-05-25] MEDS: TAMSULOSIN HCL 0.4 MG CAP PO SCH (08:31)
[2024-05-25] MEDS: OXYBUTYNIN CHLORIDE XL 5 MG TABCR PO SCH (08:31)
[2024-05-25] MEDS: ARIPiprazole 5 MG TAB PO SCH (08:31)
[2024-05-25] MEDS: ASPIRIN 81 MG ECTAB PO SCH (08:31)
[2024-05-25] MEDS: MONTELUKAST SODIUM 10 MG TABLET PO SCH (08:31)
[2024-05-25] MEDS: FLUTICASONE PROPIONATE NA SPR 16 GM BTL SCH (08:31)
[2024-05-25] MEDS: FAMOTIDINE 40 MG TABLET PO SCH (08:32)
[2024-05-25] MEDS: FERROUS SULFATE 325 MG TAB PO SCH (08:32)
[2024-05-25] MEDS: CETIRIZINE HCL 10 MG TABLET PO SCH (08:32)
[2024-05-25] MEDS: CALCIUM 600MG + VIT D 400 IU TAB PO SCH (08:32)
[2024-05-25] MEDS: lamoTRIgine 100 MG TAB PO SCH (08:34)
[2024-05-25] MEDS: VENLAFAXINE HCL XR 150 MG CAPXR PO SCH (08:34)
[2024-05-25] MEDS: VENLAFAXINE HCL XR 75 MG CAPXR PO SCH (08:34)
[2024-05-25] MEDS: lamoTRIgine 25 MG TAB PO SCH (08:34)
[2024-05-25 09:05] LABS: Base Excess VBG 12.4 mEq/L; HCO3 VBG 37 mmol/L; Oxygen Saturation VBG 76.1 %; PCO2 VBG 44 mmHg (38-50); PO2 VBG 43 mmHg; pH VBG 7.53 (7.36-7.41)
[2024-05-25 09:06] LABS: Hematocrit (blood only) 44.4 % (37.0-47.0); Hemoglobin 15.3 g/dl (12.0-16.0); Mean Corpuscular Hemoglobin 27.5 pg (25.0-34.0); Mean Corpuscular Hgb Conc 34.5 g/dL (32.0-36.0); Mean Corpuscular Volume 79.7 fL (80.0-100.0); Mean Platelet Volume 10.4 fL (9.4-12.4); Platelet Count 147 K/uL (130-400); RDW Coefficient of Variation 16.4 % (11.5-14.5); RDW Standard Deviation 46.1 fL (36.4-46.3); Red Blood Count 5.57 M/uL (4.20-5.40); White Blood Count 17.66 K/ul (4.8-10.8)
[2024-05-25 09:59] LABS: BUN Creatinine Ratio 17.4 (10-20); Calcium 10.2 mg/dl (8.6-10.3); Creatinine Clr Calc Pharmacy 40.5 ml/min; Magnesium 1.7 mg/dl (1.7-2.4); Potassium 3.7 mmol/L (3.5-5.1); Thyroid Stimulating Hormone 2.297 uIu/ml (0.300-4.500)
[2024-05-25] MEDS: SODIUM CHLORIDE 0.9% 1,000 ML IV ONE (13:43)
--- NOTE | 2024-05-25 14:29 | Hospitalist Progress Note ---
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 History of frequent UTIs, had an abnormal UA in the ED, last suprapubic cath change was 04/08/24. Labs significant for creatinine of 1.68 (baseline 1.1), potassium 2.9, initial troponin 28.2, repeat troponin 29.0. Acute metabolic encephalopathy--POA CAUTI--POA Recurrent UTIs Suspected sepsis Confusion multifactorial likely secondary to UTI, medications --CT head:No acute intracranial abnormality. No hypercarbia on VBG Normal ammonia, TSH levels No significant Uremia Urine culture pending Empirically on meropenem Acute kidney injury on CKD III Acute on chronic hyponatremia Creatinine 1.5 today Continue IV fluids Avoid nephrotoxic agents as able Monitor renal function, sodium levels Sodium normalized with fluids today Hypokalemia Hypomagnesemia Replete electrolytes as needed Monitor Chronic troponin elevation In setting of CEE/CKD Abnormal EKG Check resting echo Insulin-requiring DM II Diabetic neuropathy Basal insulin with sliding scale coverage Diabetic diet BSG ACHS Coronary artery disease Bipolar, anxiety disorder GONZALEZ cirrhosis Hypertension HFpEF GERD Continue other home medications as appropriate. Psychiatry consulted to help with possible polypharmacy Code status: Full code DVT Px Heparin SQ Admission and Anticipated Discharge Date Admission Date: May 24, 2024 Subjective Patient is seen and examined at bedside Poor historian secondary to confusion Oriented only to person during my encounter States feeling tired Offers no other complaints today Review of Systems Review of Systems: All systems reviewed & are unremarkable except as noted in Subjective Physical Exam Physical Exam: Physical Exam: Vitals signs as noted above General Appearance:Morbidly Obese, no apparent distress Head: normocephalic, Atraumatic Eyes: normal inspection, EOMI Neck: supple, Trachea midline Respiratory/Chest: Decreased breath sounds, CTA, No accessory muscle use Cardiovascular: S1, S2, + murmur Abdomen/GI:Soft, Non tender, Bowel sounds present Extremities/Musculoskeletal:normal inspection, +edema Neurologic/Psych:AAOX1, grossly no focal neurological deficits Skin: normal color, warm Results & Data Results & Data Vital Signs (Past 12 Hours) Vital Signs Temp Pulse Pulse Resp BP Pulse Ox O2 Del Method 05/25/24 10:43 37.1 C 91 H 20 133/85 92 Room Air 05/25/24 07:23 36.6 C 82 16 99/65 L 93 Room Air 05/25/24 07:23 83 05/25/24 03:46 37.0 C 81 18 110/74 93 Room Air Laboratory Results Short CBC 05/25/24 Range/Units 08:47 WBC 17.66 H (4.8-10.8) K/ul Hgb 15.3 (12.0-16.0) g/dl Hct 44.4 (37.0-47.0) % Plt Count 147 (130-400) K/uL BMP 05/25/24 08:47 Sodium 136 Potassium 3.7 D Chloride 93 L Carbon Dioxide 32 BUN 27 H Creatinine 1.55 H Glucose 118 H Calcium 10.2 (5) (HFpEF) heart failure with preserved ejection fraction Heart failure chronicity: chronic Qualified Code(s): I50.32 - Chronic diastolic (congestive) heart failure (6) CAD (coronary artery disease), [place] coronary artery [place] vs. transplanted heart: [place] heart Associated angina: without angina Qualified Code(s): I25.10 - Atherosclerotic heart disease of [place] coronary artery without angina pectoris (7) DM type 2 (diabetes mellitus, type 2) Diabetes mellitus care home insulin use: with terminal makeup operator use Diabetes mellitus complication status: with neurologic complications Diabetes mellitus complication detail: with unspecified neuropathy Qualified Code(s): E11.40 - Ty pe 2 diabetes mellitus with diabetic neuropathy, unspecified; Z79.4 - extermination inspector (current) use of insulin (8) Hypertension Hypertension type: unspecified Qualified Code(s): I10 - Essential (primary) hypertension (9) Bipolar disorder Active/Remission status: remission status unspecified Qualified Code(s): F31.9 - Bipolar disorder, unspecified
[2024-05-26 08:23] LABS: Hematocrit (blood only) 38.7 % (37.0-47.0); Mean Corpuscular Hemoglobin 27.5 pg (25.0-34.0); Mean Corpuscular Hgb Conc 33.6 g/dL (32.0-36.0); Mean Corpuscular Volume 81.8 fL (80.0-100.0); Mean Platelet Volume 10.3 fL (9.4-12.4); Platelet Count 112 K/uL (130-400); RDW Coefficient of Variation 16.5 % (11.5-14.5); Red Blood Count 4.73 M/uL (4.20-5.40); White Blood Count 12.18 K/ul (4.8-10.8)
[2024-05-26 08:48] LABS: BUN Creatinine Ratio 15.8 (10-20); Calcium 9.5 mg/dl (8.6-10.3); Creatinine Clr Calc Pharmacy 42.9 ml/min; Magnesium 1.7 mg/dl (1.7-2.4); Potassium 3.2 mmol/L (3.5-5.1)
--- NOTE | 2024-05-26 14:27 | Psychiatric Consultation ---
Date of Consultation May 26, 2024 Impression / Recommendations Impression Pt is a 73 y/o F h/o depression, anxiety, insulin dep DM2, CAD s/p ABG, GONZALEZ Cirrhosis, urinary incontinence with suprapubic catheter, recurrent UTI, CMT who was brought in for acute confusion in the setting of UTI and CEE (Cr 1.68 vs baseline of 1.1), hypokalemia, and elevated troponin. Psychiatry consulted to assess for mental health impacts, polypharmacy. Patient poorly oriented, and unable to engage in meaningful clinical interview. Presents stable sleep and appetite. Collateral from daughter indicates stable mental status prior to admission with no recent medication changes. Medication history reviewed and unlikely to have offending agents that would cause AMS. Patient has been on clonazepam 0.5mg TID for 2+ years- not ideal for elderly patient but likely started for tx resistant anxiety and would benefit from continuation with risk of worsening anxiety and cognition if d/c at this time. Current medication list clarified with patient's daughter and recommendations in plan. Given recurrent UTIs, may benefit from more frequent suprapublic catheter changes (consider Q 4weeks). Labs reviewed: Leukocytosis, hypokalemia, UA with leukocyte esterase was positive 3+, UA WBC over 50, elevated troponins, elevated alk phos at 177, creatinine of 1.68, BUN 28, (baseline creatinine at 1.06), TSH unremarkable. EKG 96 bpm with QTc of 497 ms. Overall, I spent a total of 60 minutes with this case including review of chart records, nursing report, review of lab work, direct evaluation of the patient at bedside, counseling the patient, discussion of the patient with the hospitalist provider, discussion with the psychiatric liaison during clinical rounds, and documentation in the electronic health record. (1) MDD (major depressive disorder), recurrent, in partial remission: (2) Anxiety: (3) Delirium due to another medical condition: (4) CEE (acute kidney injury): (5) Elevated troponin: (6) Prolonged QT interval: Plan D/C Hydroxyzine 10mg TID Increase Trazodone to 100mg HS Continue home clonazepam 0.5mg TID, Lamotrigine, Venlafaxine XR, Aripiprazole Consider reduction in Gabapentin dose (may contribute to worsening cognition) Psych History Identifying Data Pt is a 73 y/o F h/o depression, anxiety, insulin dep DM2, CAD s/p ABG, GONZALEZ Cirrhosis, urinary incontinence with suprapubic catheter, recurrent UTI, CMT who was brought in for acute confusion in the setting of UTI and CEE (Cr 1.68 vs baseline of 1.1), hypokalemia, and elevated troponin. Psychiatry consulted to assess for mental health impacts, polypharmacy. Chief Complaint AMS History of Present Illness Patient is seen with daughter at bedside. Patient is alert and oriented to self only, believes she is at "[facility]" "1971". Has difficulty registering questions I aske her. Chart review indicates pt slept 6+ hours overnight. Collateral from daughter reveals stable psychiatric condition prior to admission with no recent medication changes. Clarified current regimen with daughter. Says at baseline, pt receiving 27/01 care for physical needs, and is fully oriented. No recent worsening of anxiety, depression, psychosis. PDMP reveals patient has been on Clonazepam 0.5mg TID since Jun 2022. Allergies Allergy/AdvReac Type Severity Reaction Status Date / Time propoxyphene Allergy Intermediate Rash Verified 05/24/24 16:33 fentanyl AdvReac Intermediate PANIC Verified 05/24/24 16:33 WANTS TO RUN AND AGGRESSIVE methocarbamol AdvReac Intermediate DELERIUM Verified 05/24/24 16:33 zolpidem AdvReac Intermediate confusion Verified 05/09/23 13:18 Home Medications Medication Instructions Recorded Confirmed Type albuterol sulfate 90 mcg/actuation 2 inh inhalation Q6 PRN Shortness 02/07/23 05/24/24 History aerosol inhaler Of Breath Or Wheezing clonazepam 0.5 mg tablet 0.5 mg PO TID 02/07/23 05/24/24 History fluticasone propionate 50 2 spray intranasal DAILY 02/07/23 05/24/24 History mcg/actuation nasal spray,suspension (Flonase Allergy Relief) gabapentin 300 mg capsule 300 mg PO BID 02/07/23 05/24/24 History lamotrigine 100 mg tablet 100 mg PO UD 02/07/23 05/24/24 History (Lamictal) lamotrigine 25 mg tablet (Lamictal) 25 mg PO UD 02/07/23 05/24/24 History lamotrigine 25 mg tablet (Lamictal) 50 mg PO HS 02/07/23 05/24/24 History levothyroxine 88 mcg tablet 88 mcg PO QAM 02/07/23 05/24/24 History montelukast 10 mg tablet 10 mg PO DAILY 02/07/23 05/24/24 History nitroglycerin 0.4 mg sublingual 0.4 mg sublingual DIRECTED PRN 02/07/23 05/24/24 History tablet (Nitrostat) Chest Pain pantoprazole 40 mg tablet,delayed 40 mg PO AMPM 02/07/23 05/24/24 History release potassium chloride 20 mEq 20 meq PO QAM PRN when taking 02/07/23 05/24/24 History tablet,extended additional torsemide release(part/cryst) (Klor-Con M) rifaximin 550 mg tablet (Xifaxan) 550 mg PO BID 02/07/23 05/24/24 History tamsulosin 0.4 mg capsule 0.4 mg PO QAM 02/07/23 05/24/24 History torsemide 20 mg tablet 20 mg PO QAM 02/07/23 05/24/24 History trazodone 50 mg tablet 75 mg PO HS 02/07/23 05/24/24 History venlafaxine 150 mg 150 mg PO UD 02/07/23 05/24/24 History capsule,extended release 24 hr venlafaxine 75 mg tablet,extended 75 mg PO UD 02/07/23 05/24/24 History release 24 hr insulin glargine 100 unit/mL 35 unit subcut BID 05/09/23 05/24/24 History subcutaneous solution (Lantus U-100 Insulin) ascorbic acid (vitamin C) 500 mg 500 mg PO AMHS 05/12/23 05/24/24 History tablet (Vitamin C) aspirin 81 mg tablet,delayed 81 mg PO QAM 05/12/23 05/24/24 History release dicyclomine 10 mg capsule 10 mg PO QID PRN Abdominal Pain 05/12/23 05/24/24 History metformin 500 mg tablet,extended 500 mg PO QDD 05/12/23 05/24/24 History release 24 hr nystatin 100,000 unit/gram topical 1 applic topical TID 05/12/23 05/24/24 History powder (Nyamyc) oxybutynin chloride 10 mg 10 mg PO QAM 05/12/23 05/24/24 History tablet,extended release 24 hr spironolactone 50 mg tablet 50 mg PO AMHS 05/12/23 05/24/24 History semaglutide 2 mg/dose (8 mg/3 mL) 2 mg subcut .WEEKLY 03/02/24 05/24/24 History subcutaneous pen injector (Ozempic) calcium 600 mg (as 1 tab PO DAILY #60 tabs 03/05/24 05/24/24 Rx carbonate)-vitamin D3 10 mcg (400 unit) tablet (Calcium 600 + D(3)) metoprolol succinate 25 mg 25 mg PO BID #60 tabs 03/05/24 05/24/24 Rx tablet,extended release 24 hr ferrous sulfate 325 mg (65 mg 325 mg PO QAM #30 tabs 04/24/24 05/24/24 Rx iron) tablet,delayed release nystatin 100,000 unit/mL oral 1 ml PO QID PRN oral thrush #40 mL 04/24/24 05/24/24 Rx suspension aripiprazole 5 mg tablet 5 mg PO DAILY 05/24/24 05/24/24 History cetirizine 10 mg tablet 10 mg PO DAILY 05/24/24 05/24/24 History ergocalciferol (vitamin D2) 1,250 50,000 unit PO WK 05/24/24 05/24/24 History mcg (50,000 unit) capsule famotidine 40 mg tablet 40 mg PO DAILY 05/24/24 05/24/24 History hydroxyzine HCl 10 mg tablet 10 mg PO TID 05/24/24 05/24/24 History Patient History Medical History Fracture of femur, distal, left, closed Closed hip fracture CHI (closed head injury) Cardiac arrest pt states she was told she went into cardiac arrest during her hip surgery in 02/2022 at [facility] and was "revived". no other details were given. Palpitations occasionally -- pt states since her metoprolol has been decreased. Cough started about 8 months ago s/p covid-19 virus -- currently treating with augmentin PO bid and prednisone. prednisone to end 05/27/22 and abx to finish on 06/01/22 Hx of fall pt. fell in the bathroom at home, pt. wasn't aware of what happen but was told this by her family 02/05/2022 History of anesthesia reaction REMOTE HX, SIDE EFFECTS : ANXIETY AND SEVERE N/V History of COVID-19 may or june 2021, has cough since. SOB (shortness of breath) SINCE COVID -8 MON AGO, SOB, COUGH...NO DX...HAS VISIT WITH PULM UPCOMING TO EVALUATE Urinary incontinence UTI (urinary tract infection) FREQUENT/PREVENTATIVE ABX'S CURRENTLY MOST RECENT UTI JANUARY 04 - ABX COMPLETE - ON CURRENT PROPHYLACTIC TX Irregular heart beat follows Dr. 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 Spondylosis Osteoarthritis GERD (gastroesophageal reflux disease) Depression Surgical History S/P CABG x 1 2010 - single vessel S/P CARLOS (total abdominal hysterectomy) Hx of cholecystectomy History of back surgery sacral area History of appendectomy History of total right knee replacement History of left hip replacement 02/05/2022 History of cataract surgery RT History of esophagogastroduodenoscopy (EGD) History of colonoscopy History of heart artery stent 2 yrs ago @ [facility] > 6 or 7 stents > follows Dr. Lucas History of cardiac cath multiple - most recent - 2 years ago @ [facility] Family History Father Coronary heart disease Brother Coronary heart disease Father No problems noted. Mother No problems noted. 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 Beliefs That Will Affect Care: None marital status: / Current Living Situation: Alf Current Living Situation Comment: Timmy How many Children do You have: 3 Other Information That Helps Us Care for You: No Feels Safe at Home: Yes Diet: low carbohydrate and low salt caffeine: No Assistive Devices: Hospital Bed, Lift Chair, Walker and Wheelchair Physical Exam Mental Examination: Appearance: Disheveled Eye Contact: Maintains Eye Contact Motor Behavior: Unremarkable Speech: Soft Mood: Euthymic Affect: Constricted Thought Process: Disoriented Thought Content: Linear Hallucinations: None Insight: Poor Judgement: Poor Vital Signs (Past 24 Hours): Last Vital Signs Temp 36.9 C 05/26/24 07:40 Pulse 87 05/26/24 11:26 Resp 20 05/26/24 07:40 BP 100/51 L 05/26/24 07:40 Pulse Ox 91 05/26/24 07:40 O2 Del Method Room Air 05/26/24 09:22 O2 Flow Rate 0 05/24/24 10:50 Results & Data (PSY) Medications Administered Aripiprazole (Aripiprazole 5 Mg Tab) 5 mg PO DAILY ANGELLA Stop: 06/24/24 08:59 Last Admin: 05/26/24 08:38 Dose: 5 mg Documented By: Admin: 05/25/24 08:31 Dose: 5 mg Documented By: GURMEET Ascorbic Acid (Ascorbic Acid 500 Mg Tab) 500 mg PO AMHS ANGELLA Stop: 06/23/24 20:59 Last Admin: 05/26/24 08:38 Dose: 500 mg Documented By: Admin: 05/25/24 21:56 Dose: 500 mg Documented By: Admin: 05/25/24 08:33 Dose: 500 mg Documented By: Admin: 05/24/24 21:54 Dose: 500 mg Documented By: ACE Aspirin (Aspirin 81 Mg Ectab) 81 mg PO QAM ANGELLA Stop: 06/24/24 08:59 Last Admin: 05/26/24 08:39 Dose: 81 mg Documented By: Teddy Admin: 05/25/24 08:31 Dose: 81 mg Documented By: GURMEET Calcium/Vitamin D (Calcium 600mg + Vit D 400 Iu Tab) 1 tab PO DAILY ANGELLA Stop: 06/24/24 08:59 Last Admin: 05/26/24 08:39 Dose: 1 tab Documented By: Admin: 05/25/24 08:32 Dose: 1 tab Documented By: GURMEET Cetirizine HCl (Cetirizine Hcl 10 Mg Tablet) 10 mg PO DAILY ANGELLA Stop: 06/24/24 08:59 Last Admin: 05/26/24 08:37 Dose: 10 mg Documented By: Teddy Admin: 05/25/24 08:32 Dose: 10 mg Documented By: GURMEET Clonazepam (Clonazepam 0.5 Mg Tab) 0.5 mg PO TID ANGELLA Stop: 06/23/24 20:59 Last Admin: 05/26/24 08:47 Dose: 0.5 mg Documented By: Teddy Admin: 05/25/24 21:51 Dose: 0.5 mg Documented By: J[employer]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 Admin: 05/25/24 13:52 Dose: 0.5 mg Documented By: [facility] Admin: 05/25/24 09:25 Dose: 0.5 mg Documented By: [facility] Admin: 05/24/24 21:51 Dose: 0.5 mg Documented By: ACE Famotidine (Famotidine 40 Mg Tablet) 40 mg PO DAILY ANGELLA Stop: 06/24/24 08:59 Last Admin: 05/26/24 08:37 Dose: 40 mg Documented By: [facility] Admin: 05/25/24 08:32 Dose: 40 mg Documented By: GURMEET Ferrous Sulfate (Ferrous Sulfate 325 Mg Tab) 325 mg PO QAM ANGELLA Stop: 06/24/24 08:59 Last Admin: 05/26/24 08:39 Dose: 325 mg Documented By: [facility] Admin: 05/25/24 08:32 Dose: 325 mg Documented By: GURMEET Fluticasone Propionate (Fluticasone Propionate Na Spr 16 Gm Btl) 2 sprays NA DAILY ANGELLA Stop: 06/24/24 08:59 Last Admin: 05/26/24 08:39 Dose: 2 sprays Documented By: [facility] Admin: 05/25/24 08:31 Dose: 2 sprays Documented By: GURMEET Gabapentin (Gabapentin 300 Mg Cap) 300 mg PO BID ANGELLA Stop: 06/23/24 20:59 Last Admin: 05/26/24 08:39 Dose: 300 mg Documented By: [facility] Admin: 05/25/24 21:51 Dose: 300 mg Documented By: [employer] J[employer] DEVELOPER Admin: 05/25/24 08:32 Dose: 300 mg Documented By: [facility] Admin: 05/24/24 21:57 Dose: 300 mg Documented By: ACE Heparin Sodium (Porcine) (Heparin Sod 5,000 Unit/0.5 Ml Vial) 5,000 units SQ Q8 ANGELLA Stop: 06/23/24 21:59 Last Admin: 05/26/24 05:29 Dose: 5,000 units Documented By: Admin: 05/25/24 21:52 Dose: 5,000 units Documented By: Admin: 05/25/24 13:52 Dose: 5,000 units Documented By: Admin: 05/25/24 06:23 Dose: 5,000 units Documented By: Admin: 05/24/24 21:52 Dose: 5,000 units Documented By: ACE Hydroxyzine HCl (Hydroxyzine Hcl 10 Mg Tab) 10 mg PO TID ANGELLA Stop: 06/23/24 20:59 Last Admin: 05/26/24 08:38 Dose: 10 mg Documented By: Admin: 05/25/24 21:52 Dose: 10 mg Documented By: Admin: 05/25/24 13:52 Dose: 10 mg Documented By: Admin: 05/25/24 08:32 Dose: 10 mg Documented By: Admin: 05/24/24 21:56 Dose: 10 mg Documented By: ACE Insulin Aspart (Insulin Aspart Per Unit Charge) 0 units SC ACHS ANGELLA Stop: 06/23/24 20:59 Last Admin: 05/26/24 13:17 Dose: 6 units Documented By: ROBERTA Co-signed By: JORGE Admin: 05/26/24 10:26 Dose: 5 units Documented By: ROBERTA Co-signed By: FELIX Admin: 05/25/24 21:42 Dose: Not Given Documented By: Admin: 05/25/24 17:40 Dose: Not Given Documented By: Admin: 05/25/24 13:17 Dose: 4 units Documented By: GURMEET Co-signed By: MARIZOL Admin: 05/25/24 09:21 Dose: Not Given Documented By: Admin: 05/24/24 21:51 Dose: 2 units Documented By: ACE Co-signed By: CHERELLE Insulin Glargine (Lantus Per Unit Charge) 10 units SQ BID ANGELLA Stop: 06/23/24 20:59 Last Admin: 05/26/24 10:25 Dose: 10 units Documented By: ROBERTA Co-signed By: FELIX Admin: 05/25/24 21:55 Dose: 10 units Documented By: CHERELLE Co-signed By: ACE Admin: 05/25/24 09:25 Dose: 10 units Documented By: GURMEET Co-signed By: MARIZOL Admin: 05/24/24 21:51 Dose: 10 units Documented By: ACE Co-signed By: CHERELLE Lamotrigine (Lamotrigine 25 Mg Tab) 25 mg PO DAILY [facility]; Protocol Stop: 06/24/24 08:59 Last Admin: 05/26/24 08:38 Dose: 25 mg Documented By: Admin: 05/25/24 08:34 Dose: 25 mg Documented By: GURMEET Lamotrigine (Lamotrigine 25 Mg Tab) 50 mg PO HS ANGELLA; Protocol Stop: 06/23/24 20:59 Last Admin: 05/25/24 21:51 Dose: 50 mg Documented By: Admin: 05/24/24 21:53 Dose: 50 mg Documented By: ACE Lamotrigine (Lamotrigine 100 Mg Tab) 100 mg PO DAILY [facility]; Protocol Stop: 06/24/24 08:59 Last Admin: 05/26/24 08:39 Dose: 100 mg Documented By: Admin: 05/25/24 08:34 Dose: 100 mg Documented By: GURMEET Levothyroxine Sodium (Levothyroxine Sodium 88 Mcg Tablet) 88 mcg PO DAILYBB [facility] Stop: 06/24/24 06:29 Last Admin: 05/26/24 05:31 Dose: 88 mcg Documented By: Admin: 05/25/24 06:23 Dose: 88 mcg Documented By: ACE Metoprolol Succinate (Metoprolol Succ 25mg Ext Rel Tab) 25 mg PO BID ANGELLA Stop: 06/23/24 20:59 Last Admin: 05/26/24 08:38 Dose: 25 mg Documented By: Admin: 05/25/24 21:51 Dose: 25 mg Documented By: Admin: 05/25/24 08:33 Dose: Not Given Documented By: Admin: 05/24/24 21:56 Dose: 25 mg Documented By: ACE Montelukast Sodium (Montelukast Sodium 10 Mg Tablet) 10 mg PO DAILY [facility] Stop: 06/24/24 08:59 Last Admin: 05/26/24 08:37 Dose: 10 mg Documented By: Admin: 05/25/24 08:31 Dose: 10 mg Documented By: GURMEET Oxybutynin Chloride (Oxybutynin Chloride Xl 5 Mg Tabcr) 10 mg PO QAM ANGELLA Stop: 06/24/24 08:59 Last Admin: 05/26/24 08:38 Dose: 10 mg Documented By: Admin: 05/25/24 08:31 Dose: 10 mg Documented By: PAUL Pantoprazole Sodium (Pantoprazole 40 Mg Tab) 40 mg PO Q12H ANGELLA Stop: 06/23/24 20:59 Last Admin: 05/26/24 08:37 Dose: 40 mg Documented By: Admin: 05/25/24 21:51 Dose: 40 mg Documented By: Admin: 05/25/24 11:52 Dose: 40 mg Documented By: Admin: 05/24/24 21:54 Dose: 40 mg Documented By: ACE Rifaximin (Rifaximin 550 Mg Tablet) 550 mg PO BID ANGELLA Stop: 06/23/24 20:59 Last Admin: 05/26/24 08:39 Dose: 550 mg Documented By: Admin: 05/25/24 21:51 Dose: 550 mg Documented By: Admin: 05/25/24 08:34 Dose: 550 mg Documented By: Admin: 05/24/24 21:54 Dose: 550 mg Documented By: ACE Tamsulosin HCl (Tamsulosin Hcl 0.4 Mg Cap) 0.4 mg PO QAM ANGELLA Stop: 06/24/24 08:59 Last Admin: 05/26/24 08:38 Dose: 0.4 mg Documented By: Admin: 05/25/24 08:31 Dose: 0.4 mg Documented By: GURMEET Trazodone HCl (Trazodone Hcl 50 Mg Tab) 75 mg PO HS ANGELLA Stop: 06/23/24 20:59 Last Admin: 05/25/24 21:52 Dose: 75 mg Documented By: Admin: 05/24/24 21:51 Dose: 75 mg Documented By: ACE Venlafaxine HCl (Venlafaxine Hcl Xr 150 Mg Capxr) 150 mg PO DAILY ANGELLA Stop: 06/24/24 08:59 Last Admin: 05/26/24 08:37 Dose: 150 mg Documented By: Admin: 05/25/24 08:34 Dose: 150 mg Documented By: GURMEET Venlafaxine HCl (Venlafaxine Hcl Xr 75 Mg Capxr) 75 mg PO DAILY ANGELLA Stop: 06/24/24 08:59 Last Admin: 05/26/24 08:39 Dose: 75 mg Documented By: Admin: 05/25/24 08:34 Dose: 75 mg Documented By: GURMEET [place] [address] IN/OBS CONSULT LVL 4,60M Patient Type New History Detailed Exam Detailed Medical Decision Making Moderate Complexity Diagnoses MDD (major depressive disorder), recurrent, in partial remission F33.41 Anxiety F41.9 Delirium due to another medical condition F05 CEE (acute kidney injury) N17.9 Elevated troponin R79.89 Prolonged QT interval R94.31
--- NOTE | 2024-05-26 14:34 | Hospitalist Progress Note ---
Date of Service May 26, 2024 Assessment & Plan (1) Acute alteration in mental status: (2) Complicated UTI (urinary tract infection): (3) CEE (acute kidney injury): (4) Elevated troponin: (5) (HFpEF) heart failure with preserved ejection fraction: (6) CAD (coronary artery disease), tribal coronary artery: (7) DM type 2 (diabetes mellitus, type 2): (8) Hypertension: (9) Bipolar disorder: (10) Anxiety: (11) 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: (12) Hypokalemia: Plan 73 y/o female with insulin-requiring DM2 with associated neuropathy and gastroparesis, CAD s/p CABG, GONZALEZ cirrhosis with portal hypertensive gastropathy, CKD3, COPD, chronic diastolic HF, moderate AoS, urinary incontinence w/ suprapubic catheter in place, Tcyndrz-Nkqxn-Gjcut Disease, and other medical problems who was brought to the ED today from [facility] for confusion and weakness. History of frequent UTIs, had an abnormal UA in the ED Last suprapubic cath change was 04/08/24. On admission, Labs were significant for creatinine of 1.68 (baseline 1.1), potassium 2.9, initial troponin 28.2, repeat troponin 29.0. Acute metabolic encephalopathy--POA CAUTI--POA Recurrent UTIs Suspected sepsis Confusion multifactorial likely secondary to UTI and medications probably contributing --CT head:No acute intracranial abnormality. No hypercarbia on VBG Normal ammonia, TSH levels No significant Uremia Urine culture growing Enterococcus and GNR Abx changed from meropenem to daptomycin F/u final UCx Psych eval and recs noted. Hydroxyzine stopped for now. Trazodone increased to 100mg HS Gabapentin stopped for now as well. Acute kidney injury on CKD III Acute on chronic hyponatremia Got IVF Creatinine improving 1.46 today Avoid nephrotoxic agents as able Monitor renal function, sodium levels Hyponatremia resolved Hypokalemia Replete electrolytes as needed Monitor Chronic troponin elevation In setting of CEE/CKD TTE sjpwed EF >70%, mild conc LVH, no regional wall motion abnormalities, RV size and function grossly normal Insulin-requiring DM II Diabetic neuropathy Basal insulin with sliding scale coverage Diabetic diet BSG ACHS Coronary artery disease Bipolar, anxiety disorder GONZALEZ cirrhosis Hypertension HFpEF GERD Continue other home medications as appropriate. Psychiatry recs noted and meds changed as above Code status: Full code DVT Px Heparin SQ Calls to daughter to update her were unanswered I spent a total of 55 minutes coordinating, documenting and providing care for this patient excluding time spent in performance of separately billed services Admission and Anticipated Discharge Date Admission Date: May 24, 2024 Subjective Patient seen and examined She is alert and oriented to person, sitting in chair Confused. Unable to do ROS due to confusion Physical Exam Constitutional: + well hydrated; no acute distress Eyes: PERRL, conjunctivae normal, anicteric sclerae ENMT: external ear and nose normal, oropharynx normal Respiratory: normal respiratory effort, lungs clear to auscultation Cardiovascular: Rate/Rhythm: regular rate and regular rhythm Gastrointestinal (Abdomen): normal bowel sounds, soft, nontender, no hepatosplenomegaly Musculoskeletal: No pedal edema Neurologic: PERRL, EOMI, accommodation nl, no face palsy, no dysarthria Psychiatric: Confused Genitourinary: Suprapubic mejia in situ Results & Data Results & Data Vital Signs (Past 12 Hours) Vital Signs Temp Pulse Pulse Resp BP Pulse Ox O2 Del Method 05/26/24 11:26 87 05/26/24 09:22 Room Air 05/26/24 07:40 36.9 C 82 20 100/51 L 91 Room Air 05/26/24 03:43 37.4 C 87 20 130/80 92 Room Air Laboratory Results Abnormal lab results 05/25/24 05/25/24 05/26/24 Range/Units 16:58 20:41 07:51 WBC 12.18 H (4.8-10.8) K/ul RDW Std Deviation 48.0 H (36.4-46.3) fL RDW Coeff of Guillermo 16.5 H (11.5-14.5) % Plt Count 112 L (130-400) K/uL Potassium 3.2 L (3.5-5.1) mmol/L Creatinine 1.46 H (0.6-1.2) mg/dl Glucose 134 H (70-99(Fasting)) mg/dl POC Glucose 110 H 138 H (70-99) mg/dl 05/26/24 05/26/24 Range/Units 07:57 12:00 WBC (4.8-10.8) K/ul RDW Std Deviation (36.4-46.3) fL RDW Coeff of Guillermo (11.5-14.5) % Plt Count (130-400) K/uL Potassium (3.5-5.1) mmol/L Creatinine (0.6-1.2) mg/dl Glucose (70-99(Fasting)) mg/dl POC Glucose 135 H 191 H (70-99) mg/dl (5) (HFpEF) heart failure with preserved ejection fraction Heart failure chronicity: chronic Qualified Code(s): I50.32 - Chronic diastolic (congestive) heart failure (6) CAD (coronary artery disease), tribal coronary artery Associated angina: without angina [place] vs. 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
--- NOTE | 2024-05-26 14:58 | Urology Consultation ---
Date of Consultation May 26, 2024 Assessment & Plan (1) Complicated UTI (urinary tract infection): (2) Acute alteration in mental status: 73-year-old female with history of recurrent UTIs and suprapubic catheter admitted for altered mental status and complicated UTI. Urology is consulted for suprapubic catheter exchange Patient is afebrile and hemodynamically stable Labs reviewedcreatinine 1.46, WBC 12.18, hemoglobin 13.0 Suprapubic catheter was exchanged without difficulty Patient tolerated procedure well, no immediate complications Blood cultures with no growth to date Urine culture prelim with Enterococcus and gram-negative bacilli Continue broad-spectrum antibiotics and narrow per sensitivity data when available Continue medical management per hospital medicine service Continue with monthly SP catheter exchanges with her established urologist will sign off, recall as needed History of Present Illness Attending Physician: Azucena Smith MD History of Present Illness This is a 73-year-old female with type 2 diabetes, CAD s/p CABG, GONZALEZ, CKD, COPD, Charcot Rashmi tooth, recurrent UTIs and suprapubic catheter who presented to the emergency department on 05/24/2024 from [facility] for evaluation of confusion and weakness. She was admitted to the hospital medicine service for encephalopathy, suspected urinary tract infection, and acute kidney injury. Urology is consulted for suprapubic catheter exchange. Patient follows with Dr. Panda for recurrent UTIs and suprapubic catheter. Per admitting notes, last catheter exchange was on 04/08/2024. Labs today reviewedcreatinine 1.46, WBC 12.18, hemoglobin 13.0. Blood cultures 05/24 prelim with no growth x 24 hours. Urine culture prelim with Enterococcus and gram-negative bacilli. Initially on Meropenem, transitioned to Daptomycin. Patient seen and examined at bedside this afternoon. She is awake and resting in bed. She answers yes/no questions, but is unable to provide meaningful history. Denies suprapubic or flank pain. No nausea or vomiting. No fever or chills. Denies dysuria or hematuria. She is unable to tell me when her suprapubic catheter was last exchanged. Suprapubic catheter was exchanged in the following fashion: Patient was identified and informed consent was obtained. Her indwelling suprapubic tube was removed atraumatically. The lower abdomen around the suprapubic tract was then prepped with Betadine and draped in the sterile fashion. A well-lubricated 20 [place] Gallagher catheter was advanced along the suprapubic tract until it was past the fascia. The balloon was then inflated with 10 mL of normal saline. There was return of clear yellow urine through the catheter. The catheter was attached to gravity drainage. Patient tolerated the procedure well with no immediate complications. Allergies Allergy/AdvReac Type Severity Reaction Status Date / Time propoxyphene Allergy Intermediate Rash Verified 05/24/24 16:33 fentanyl AdvReac Intermediate PANIC Verified 05/24/24 16:33 WANTS TO RUN AND AGGRESSIVE methocarbamol AdvReac Intermediate DELERIUM Verified 05/24/24 16:33 zolpidem AdvReac Intermediate confusion Verified 05/09/23 13:18 Home Medications Medication Instructions Recorded Confirmed Type albuterol sulfate 90 mcg/actuation 2 inh inhalation Q6 PRN Shortness 02/07/23 05/24/24 History aerosol inhaler Of Breath Or Wheezing clonazepam 0.5 mg tablet 0.5 mg PO TID 02/07/23 05/24/24 History fluticasone propionate 50 2 spray intranasal DAILY 02/07/23 05/24/24 History mcg/actuation nasal spray,suspension (Flonase Allergy Relief) gabapentin 300 mg capsule 300 mg PO BID 02/07/23 05/24/24 History lamotrigine 100 mg tablet 100 mg PO UD 02/07/23 05/24/24 History (Lamictal) lamotrigine 25 mg tablet (Lamictal) 25 mg PO UD 02/07/23 05/24/24 History lamotrigine 25 mg tablet (Lamictal) 50 mg PO HS 02/07/23 05/24/24 History levothyroxine 88 mcg tablet 88 mcg PO QAM 02/07/23 05/24/24 History montelukast 10 mg tablet 10 mg PO DAILY 02/07/23 05/24/24 History nitroglycerin 0.4 mg sublingual 0.4 mg sublingual DIRECTED PRN 02/07/23 05/24/24 History tablet (Nitrostat) Chest Pain pantoprazole 40 mg tablet,delayed 40 mg PO AMPM 02/07/23 05/24/24 History release potassium chloride 20 mEq 20 meq PO QAM PRN when taking 02/07/23 05/24/24 History tablet,extended additional torsemide release(part/cryst) (Klor-Con M) rifaximin 550 mg tablet (Xifaxan) 550 mg PO BID 02/07/23 05/24/24 History tamsulosin 0.4 mg capsule 0.4 mg PO QAM 02/07/23 05/24/24 History torsemide 20 mg tablet 20 mg PO QAM 02/07/23 05/24/24 History trazodone 50 mg tablet 75 mg PO HS 02/07/23 05/24/24 History venlafaxine 150 mg 150 mg PO UD 02/07/23 05/24/24 History capsule,extended release 24 hr venlafaxine 75 mg tablet,extended 75 mg PO UD 02/07/23 05/24/24 History release 24 hr insulin glargine 100 unit/mL 35 unit subcut BID 05/09/23 05/24/24 History subcutaneous solution (Lantus U-100 Insulin) ascorbic acid (vitamin C) 500 mg 500 mg PO AMHS 05/12/23 05/24/24 History tablet (Vitamin C) aspirin 81 mg tablet,delayed 81 mg PO QAM 05/12/23 05/24/24 History release dicyclomine 10 mg capsule 10 mg PO QID PRN Abdominal Pain 05/12/23 05/24/24 History metformin 500 mg tablet,extended 500 mg PO QDD 05/12/23 05/24/24 History release 24 hr nystatin 100,000 unit/gram topical 1 applic topical TID 05/12/23 05/24/24 History powder (Nyamyc) oxybutynin chloride 10 mg 10 mg PO QAM 05/12/23 05/24/24 History tablet,extended release 24 hr spironolactone 50 mg tablet 50 mg PO AMHS 05/12/23 05/24/24 History semaglutide 2 mg/dose (8 mg/3 mL) 2 mg subcut .WEEKLY 03/02/24 05/24/24 History subcutaneous pen injector (Ozempic) calcium 600 mg (as 1 tab PO DAILY #60 tabs 03/05/24 05/24/24 Rx carbonate)-vitamin D3 10 mcg (400 unit) tablet (Calcium 600 + D(3)) metoprolol succinate 25 mg 25 mg PO BID #60 tabs 03/05/24 05/24/24 Rx tablet,extended release 24 hr ferrous sulfate 325 mg (65 mg 325 mg PO QAM #30 tabs 04/24/24 05/24/24 Rx iron) tablet,delayed release nystatin 100,000 unit/mL oral 1 ml PO QID PRN oral thrush #40 mL 04/24/24 05/24/24 Rx suspension aripiprazole 5 mg tablet 5 mg PO DAILY 05/24/24 05/24/24 History cetirizine 10 mg tablet 10 mg PO DAILY 05/24/24 05/24/24 History ergocalciferol (vitamin D2) 1,250 50,000 unit PO WK 05/24/24 05/24/24 History mcg (50,000 unit) capsule famotidine 40 mg tablet 40 mg PO DAILY 05/24/24 05/24/24 History hydroxyzine HCl 10 mg tablet 10 mg PO TID 05/24/24 05/24/24 History Patient History Medical History Fracture of femur, distal, left, closed Closed hip fracture CHI (closed head injury) Cardiac arrest pt states she was told she went into cardiac arrest during her hip surgery in 02/2022 at [facility] and was "revived". no other details were given. Palpitations occasionally -- pt states since her metoprolol has been decreased. Cough started about 8 months ago s/p covid-19 virus -- currently treating with augmentin PO bid and prednisone. prednisone to end 05/27/22 and abx to finish on 06/01/22 Hx of fall pt. fell in the bathroom at home, pt. wasn't aware of what happen but was told this by her family 02/05/2022 History of anesthesia reaction REMOTE HX, SIDE EFFECTS : ANXIETY AND SEVERE N/V History of COVID-19 may or june 2021, has cough since. SOB (shortness of breath) SINCE COVID -8 MON AGO, SOB, COUGH...NO DX...HAS VISIT WITH PULM UPCOMING TO EVALUATE Urinary incontinence UTI (urinary tract infection) FREQUENT/PREVENTATIVE ABX'S CURRENTLY MOST RECENT UTI JANUARY 04 - ABX COMPLETE - ON CURRENT PROPHYLACTIC TX Irregular heart beat follows Dr. 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 Spondylosis Osteoarthritis GERD (gastroesophageal reflux disease) Depression Surgical History S/P CABG x 1 2010 - single vessel S/P CARLOS (total abdominal hysterectomy) Hx of cholecystectomy History of back surgery sacral area History of appendectomy History of total right knee replacement History of left hip replacement 02/05/2022 History of cataract surgery RT History of esophagogastroduodenoscopy (EGD) History of colonoscopy History of heart artery stent 2 yrs ago @ [facility], [place] > 6 or 7 stents > follows Dr. Lucas History of cardiac cath multiple - most recent - 2 years ago @ [facility] Family History Father Coronary heart disease Brother Coronary heart disease Father No problems noted. Mother No problems noted. Other No family history of adverse response to anesthesia Social History Smoking Status: Never smoker Tobacco Type: Cigarettes Second Hand Exposure: No; Do You Dip or Chew Tobacco: No; Tobacco Cessation Education Requested by Patient: No Hx Alcohol Use: No Hx Substance Use: No Preferred Language: Faroese Communication Ability: Disoriente Visual Impairment: Partially Limited Hearing Ability: Hard of Hearing Production Finisher Required: No Beliefs That Will Affect Care: None marital status: / Current Living Situation: Snf Current Living Situation Comment: [facility] How many Children do You have: 3 Other Information That Helps Us Care for You: No Feels Safe at Home: Yes Diet: low carbohydrate and low salt caffeine: No Assistive Devices: Hospital Bed, Lift Chair, Walker and Wheelchair Review of Systems Review of Systems: All systems reviewed & are unremarkable except as noted in HPI & below Physical Exam Constitutional: + obese; no acute distress Respiratory: normal respiratory effort; no respiratory distress and no labored breathing Gastrointestinal (Abdomen): Inspection/Auscultation: abdomen normal to inspection Musculoskeletal: Head/Neck/Chest: normocephalic Neurologic: moves all extremities and awake Psychiatric: Orientation: alert and oriented to person Genitourinary: SP catheter patent and draining clear yellow urine Results & Data Vital Signs (Past 12 Hours) Vital Signs Temp Pulse Pulse Resp BP Pulse Ox O2 Del Method 05/26/24 11:26 87 05/26/24 09:22 Room Air 05/26/24 07:40 36.9 C 82 20 100/51 L 91 Room Air 05/26/24 03:43 37.4 C 87 20 130/80 92 Room Air PG Care Time/CCT Total # of Minutes Spent Total Time Spent with Patient: Total time spent is greater than 50% in coordination of care (as documented) at patient's floor/unit and/or counseling patient: Coding Level of Care Code 06199 INT INP/OBS CARE MIN Diagnoses Complicated UTI (urinary tract infection) N39.0 Acute alteration in mental status R41.82
[2024-05-26] MEDS: DAPTOmycin 700 MG in SYRINGE 0 ML IV SCH (15:41)
[2024-05-26] MEDS: POTASSIUM CHLORIDE CRTAB 20 MEQ TABCR PO STA (16:13)
[2024-05-26] MEDS: traZODone HCL 100 MG TAB PO SCH (21:07)
--- NOTE | 2024-05-26 21:52 | Electrocardiogram Report ---
Test Reason : Blood Pressure : */* mmHG Vent. Rate : 96 BPM Atrial Rate : 96 BPM P-R Int : 152 ms QRS Dur : 104 ms QT Int : 394 ms P-R-T Axes : -8 -63 104 degrees QTcB Int : 497 ms Normal sinus rhythm Left axis deviation Inferior infarct (cited on or before 24-May-2024) Possible Anterolateral infarct (cited on or before 24-May-2024) Abnormal ECG When compared with ECG of 24-May-2024 11:05, No significant change was found Confirmed by Vamshi Landaverde ([id number]) on 05/26/2024 9:52:42 PM Referred By: REFERRED SELF Confirmed By: Vamshi Landaverde
[2024-05-27] MEDS: OLANZapine 10 MG/2.1 ML SDV IM STA (04:18)
[2024-05-27 06:41] LABS: Hematocrit (blood only) 33.9 % (37.0-47.0); Hemoglobin 11.7 g/dl (12.0-16.0); Mean Corpuscular Hemoglobin 27.9 pg (25.0-34.0); Mean Corpuscular Hgb Conc 34.5 g/dL (32.0-36.0); Mean Corpuscular Volume 80.7 fL (80.0-100.0); Mean Platelet Volume 10.8 fL (9.4-12.4); Platelet Count 101 K/uL (130-400); RDW Coefficient of Variation 16.4 % (11.5-14.5); RDW Standard Deviation 46.9 fL (36.4-46.3); White Blood Count 11.55 K/ul (4.8-10.8)
[2024-05-27 06:59] LABS: Albumin Globulin Ratio 1.3 (0.9-2); Albumin Level 3.1 gm/dl (3.4-5.0); Bilirubin,Total 1.5 mg/dl (0.2-1.0); Calcium 8.9 mg/dl (8.6-10.3); Creatinine Clr Calc Pharmacy 55.3 ml/min; Globulin 2.4 gm/dl (2.5-4.0); Magnesium 1.7 mg/dl (1.7-2.4); Phosphorus 2.5 mg/dl (2.5-4.9); Potassium 3.1 mmol/L (3.5-5.1); Total Protein 5.5 gm/dl (6.0-8.3)
[2024-05-27] MEDS: POTASSIUM CHLORIDE CRTAB 20 MEQ TABCR PO SCH (08:25)
[2024-05-27] MEDS: POTASSIUM CHLORIDE CRTAB 20 MEQ TABCR PO STA (08:25)
--- NOTE | 2024-05-27 10:19 | Hospitalist Progress Note ---
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 History of frequent UTIs, had an abnormal UA in the ED Last suprapubic cath change was 04/08/24. On admission, Labs were significant for creatinine of 1.68 (baseline 1.1), potassium 2.9, initial troponin 28.2, repeat troponin 29.0. Acute metabolic encephalopathy--POA Delirium CAUTI--POA Recurrent UTIs Suspected sepsis Confusion multifactorial likely secondary to UTI and medications probably contributing --CT head:No acute intracranial abnormality. No hypercarbia on VBG Normal ammonia, TSH levels No significant Uremia Urine culture growing Enterococcus and GNR Was initially on meropenem, changed to daptomycin on 05/26/24 F/u final UCx Psych eval and recs noted. Hydroxyzine and gabapentin were stopped. Trazodone increased to 100mg HS Called daughter and updated her. She stated patient was not on hydroxyzine at home so that was removed from her home admission med rec. She also reported patient does get hospital delirium Acute kidney injury on CKD III Acute on chronic hyponatremia Got IVF Creatinine improved 1.12 today Avoid nephrotoxic agents as able Monitor renal function, sodium levels Hyponatremia resolved Hypokalemia Replete Resume home po potassium Monitor Chronic troponin elevation In setting of CEE/CKD TTE showed EF >70%, mild conc LVH, no regional wall motion abnormalities, RV size and function grossly normal Insulin-requiring DM II Diabetic neuropathy Basal insulin with sliding scale coverage Diabetic diet BSG ACHS Coronary artery disease Bipolar, anxiety disorder GONZALEZ cirrhosis Hypertension HFpEF GERD Continue other home medications as appropriate. Psychiatry recs noted and meds changed as above Code status: Full code DVT Px Heparin SQ I spent a total of 50 minutes coordinating, documenting and providing care for this patient excluding time spent in performance of separately billed services Admission and Anticipated Discharge Date Admission Date: May 24, 2024 Subjective Patient seen and examined She is alert and oriented to person only Confused. Unable to do ROS due to confusion Physical Exam Constitutional: + well hydrated; no acute distress Eyes: PERRL, conjunctivae normal, anicteric sclerae ENMT: external ear and nose normal, oropharynx normal Respiratory: normal respiratory effort, lungs clear to auscultation Cardiovascular: Rate/Rhythm: regular rate and regular rhythm Gastrointestinal (Abdomen): normal bowel sounds, soft, nontender, no hepatosplenomegaly Neurologic: PERRL, EOMI, accommodation nl, no face palsy, no dysarthria Psychiatric: Oriented to person only. confused Genitourinary: Suprapubic catheter Results & Data Results & Data Vital Signs (Past 12 Hours) Vital Signs Temp Pulse Pulse Resp BP Pulse Ox O2 Del Method 05/27/24 09:58 Room Air 05/27/24 09:57 79 05/27/24 07:58 36.8 C 75 18 110/72 96 Room Air 05/27/24 03:29 36.8 C 78 16 127/75 96 Room Air 05/26/24 23:12 37 C 80 18 117/74 94 Room Air Laboratory Results Abnormal lab results 05/26/24 05/26/24 05/27/24 Range/Units 12:00 20:54 06:02 WBC 11.55 H (4.8-10.8) K/ul Hgb 11.7 L (12.0-16.0) g/dl Hct 33.9 L (37.0-47.0) % RDW Std Deviation 46.9 H (36.4-46.3) fL RDW Coeff of Guillermo 16.4 H (11.5-14.5) % Plt Count 101 L (130-400) K/uL Potassium 3.1 L (3.5-5.1) mmol/L Chloride 97 L (98-107) mmol/L Glucose 164 H (70-99(Fasting)) mg/dl POC Glucose 191 H 149 H (70-99) mg/dl Total Bilirubin 1.5 H (0.2-1.0) mg/dl Alkaline Phosphatase 120 H (34-104) U/L Total Protein 5.5 L (6.0-8.3) gm/dl Albumin 3.1 L (3.4-5.0) gm/dl Globulin 2.4 L (2.5-4.0) gm/dl 05/27/24 Range/Units 08:12 WBC (4.8-10.8) K/ul Hgb (12.0-16.0) g/dl Hct (37.0-47.0) % RDW Std Deviation (36.4-46.3) fL RDW Coeff of Guillermo (11.5-14.5) % Plt Count (130-400) K/uL Potassium (3.5-5.1) mmol/L Chloride (98-107) mmol/L Glucose (70-99(Fasting)) mg/dl POC Glucose 152 H (70-99) mg/dl Total Bilirubin (0.2-1.0) mg/dl Alkaline Phosphatase (34-104) U/L Total Protein (6.0-8.3) gm/dl Albumin (3.4-5.0) gm/dl Globulin (2.5-4.0) gm/dl (5) (HFpEF) heart failure with preserved ejection fraction Heart failure chronicity: chronic Qualified Code(s): I50.32 - Chronic diastolic (congestive) heart failure (6) CAD (coronary artery disease), kashia coronary artery [place] vs. transplanted heart: kashia heart Associated angina: without angina Qualified Code(s): I25.10 - Atherosclerotic heart disease of kashia coronary ar lexis without angina pectoris (7) DM type 2 (diabetes mellitus, type 2) Diabetes mellitus jail insulin use: with dedicated intermodal truck driver use Diabetes mellitus complication status: with neurologic complications Diabetes mellitus complication detail: with unspecified neuropathy Qualified Code(s): E11.40 - Type 2 diabetes mellitus with diabetic neuropathy, unspecified; Z79.4 - Long t erm (current) use of insulin (8) Hypertension Hypertension type: unspecified Qualified Code(s): I10 - Essential (primary) hypertension (9) Bipolar disorder Active/Remission status: remission status unspecified Qualified Code(s): F31.9 - Bipolar disorder, unspecified
[2024-05-28 06:39] LABS: Hematocrit (blood only) 32.5 % (37.0-47.0); Mean Corpuscular Hemoglobin 27.7 pg (25.0-34.0); Mean Corpuscular Hgb Conc 33.8 g/dL (32.0-36.0); Mean Corpuscular Volume 81.9 fL (80.0-100.0); Mean Platelet Volume 10.7 fL (9.4-12.4); Platelet Count 89 K/uL (130-400); RDW Coefficient of Variation 16.8 % (11.5-14.5); Red Blood Count 3.97 M/uL (4.20-5.40); White Blood Count 7.47 K/ul (4.8-10.8)
[2024-05-28 07:02] LABS: Albumin Globulin Ratio 1.3 (0.9-2); BUN Creatinine Ratio 15.2 (10-20); Bilirubin,Total 1.2 mg/dl (0.2-1.0); Calcium 8.8 mg/dl (8.6-10.3); Creatinine Clr Calc Pharmacy 62.6 ml/min; Globulin 2.4 gm/dl (2.5-4.0); Magnesium 1.8 mg/dl (1.7-2.4); Phosphorus 2.7 mg/dl (2.5-4.9); Potassium 3.4 mmol/L (3.5-5.1); Total Protein 5.4 gm/dl (6.0-8.3)
[2024-05-28] MEDS: POTASSIUM CHLORIDE CRTAB 20 MEQ TABCR PO STA (09:48)
[2024-05-28] MEDS: 4.5GM X1 IV ONE (11:08)
--- NOTE | 2024-05-28 12:39 | Hospitalist Progress Note ---
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 History of frequent UTIs, had an abnormal UA in the ED Last suprapubic cath change was 04/08/24. On admission, Labs were significant for creatinine of 1.68 (baseline 1.1), potassium 2.9, initial troponin 28.2, repeat troponin 29.0. Acute metabolic encephalopathy--POA Delirium CAUTI--POA Recurrent UTIs Suspected sepsis Confusion multifactorial likely secondary to UTI and medications probably contributing --CT head:No acute intracranial abnormality. No hypercarbia on VBG Normal ammonia, TSH levels No significant Uremia Urine culture growing Enterococcus and Pseudomonas Was initially on meropenem, changed to daptomycin on 05/26/24 Zosyn added Will appreciate ID guidance with Abx mgt Suprapubic mejia already changed by Urology Psych eval and recs noted. Hydroxyzine and gabapentin were stopped. Trazodone increased to 100mg HS On 05/27/24, I called daughter and updated her. She stated patient was not on hydroxyzine at home so that was removed from her home admission med rec. She also reported patient does get hospital delirium Acute kidney injury on CKD III Acute on chronic hyponatremia Got IVF Creatinine improved 1.12 today Avoid nephrotoxic agents as able Monitor renal function, sodium levels Hyponatremia resolved Hypokalemia Replete and monitor Chronic troponin elevation In setting of CEE/CKD TTE showed EF >70%, mild conc LVH, no regional wall motion abnormalities, RV size and function grossly normal Insulin-requiring DM II Diabetic neuropathy Basal insulin with sliding scale coverage Diabetic diet BSG ACHS Coronary artery disease Bipolar, anxiety disorder GONZALEZ cirrhosis Hypertension HFpEF GERD Continue other home medications as appropriate. Psychiatry recs noted and meds changed as above Code status: Full code DVT Px Heparin SQ I spent a total of 40 minutes coordinating, documenting and providing care for this patient excluding time spent in performance of separately billed services Admission and Anticipated Discharge Date Admission Date: May 24, 2024 Subjective Patient seen and examined She is alert and oriented to person only Still Confused. Physical Exam Constitutional: + well hydrated; no acute distress Eyes: PERRL, conjunctivae normal, anicteric sclerae ENMT: external ear and nose normal, oropharynx normal Respiratory: normal respiratory effort, lungs clear to auscultation Cardiovascular: Rate/Rhythm: regular rate and regular rhythm Gastrointestinal (Abdomen): normal bowel sounds, soft, nontender, no hepatosplenomegaly Neurologic: PERRL, EOMI, accommodation nl, no face palsy, no dysarthria Psychiatric: Oriented to person only. Confused Genitourinary: Suprapubic catheter Results & Data Results & Data Vital Signs (Past 12 Hours) Vital Signs Temp Pulse Pulse Resp BP BP Pulse Ox 05/28/24 11:05 36.8 C 77 15 98/66 L 96 05/28/24 09:15 05/28/24 08:21 36.7 C 71 17 101/63 97 05/28/24 07:18 69 05/28/24 03:42 36.6 C 75 18 107/66 93 O2 Del Method 05/28/24 11:05 Room Air 05/28/24 09:15 Room Air 05/28/24 08:21 Room Air 05/28/24 07:18 05/28/24 03:42 Room Air Laboratory Results Abnormal lab results 05/27/24 05/27/24 05/28/24 Range/Units 16:56 20:20 05:48 RBC 3.97 L (4.20-5.40) M/uL Hgb 11.0 L (12.0-16.0) g/dl Hct 32.5 L (37.0-47.0) % RDW Std Deviation 49.0 H (36.4-46.3) fL RDW Coeff of Guillermo 16.8 H (11.5-14.5) % Plt Count 89 L (130-400) K/uL Potassium 3.4 L (3.5-5.1) mmol/L Glucose 168 H (70-99(Fasting)) mg/dl POC Glucose 123 H 166 H (70-99) mg/dl Total Bilirubin 1.2 H (0.2-1.0) mg/dl Alkaline Phosphatase 110 H (34-104) U/L Total Protein 5.4 L (6.0-8.3) gm/dl Albumin 3.0 L (3.4-5.0) gm/dl Globulin 2.4 L (2.5-4.0) gm/dl 05/28/24 05/28/24 Range/Units 08:08 12:14 RBC (4.20-5.40) M/uL Hgb (12.0-16.0) g/dl Hct (37.0-47.0) % RDW Std Deviation (36.4-46.3) fL RDW Coeff of Guillermo (11.5-14.5) % Plt Count (130-400) K/uL Potassium (3.5-5.1) mmol/L Glucose (70-99(Fasting)) mg/dl POC Glucose 167 H 132 H (70-99) mg/dl Total Bilirubin (0.2-1.0) mg/dl Alkaline Phosphatase (34-104) U/L Total Protein (6.0-8.3) gm/dl Albumin (3.4-5.0) gm/dl Globulin (2.5-4.0) gm/dl (5) (HFpEF) heart failure with preserved ejection fraction Heart failure chronicity: chronic Qualified Code(s): I50.32 - Chronic diastolic (congestive) heart failure (6) CAD (coronary artery disease), [place] coronary artery [place] vs. transplanted heart: [place] heart Associated angina: without angina Qualified Code(s): I25.10 - Atherosclerotic heart disease of [place] coronary artery without angina pectoris (7) DM type 2 (diabetes mellitus, type 2) Diabetes mellitus alf insulin use: with manager terminal use Diabetes mellitus complication status: with neurologic complications Diabetes mellitus complication detail: with unspecified neuropathy Qualified Code(s): E11.40 - Type 2 diabetes mellitus with diabetic neuropathy, unspecified; Z79.4 - [facility] (current) use of insulin (8) Hypertension Hypertension type: unspecified Qualified Code(s): I10 - Essential (primary) hypertension (9) Bipolar disorder Active/Remission status: remission status unspecified Qualified Code(s): F31.9 - Bipolar disorder, unspecified
[2024-05-28] MEDS: 4.5GM EXT INFUSION IV SCH (17:29)
[2024-05-29 07:02] LABS: Hematocrit (blood only) 34.6 % (37.0-47.0); Hemoglobin 11.7 g/dl (12.0-16.0); Mean Corpuscular Hemoglobin 27.7 pg (25.0-34.0); Mean Corpuscular Hgb Conc 33.8 g/dL (32.0-36.0); Mean Corpuscular Volume 81.8 fL (80.0-100.0); Platelet Count 93 K/uL (130-400); RDW Coefficient of Variation 17.1 % (11.5-14.5); RDW Standard Deviation 49.1 fL (36.4-46.3); Red Blood Count 4.23 M/uL (4.20-5.40); White Blood Count 6.08 K/ul (4.8-10.8)
[2024-05-29 07:40] LABS: Calcium 8.6 mg/dl (8.6-10.3); Creatinine Clr Calc Pharmacy 62.3 ml/min; Magnesium 1.9 mg/dl (1.7-2.4); Phosphorus 2.2 mg/dl (2.5-4.9); Potassium 3.4 mmol/L (3.5-5.1)
--- NOTE | 2024-05-29 10:22 | CT Scan Report ---
CT OF THE HEAD WITHOUT CONTRAST CLINICAL HISTORY: Persistent AMS. Reassess COMPARISON STUDY: Head CT May 24, 2024. CT DOSE: 2420.97 mGy.cm TECHNIQUE: Helical axial images of the head were obtained without IV contrast. Automated exposure con trol was utilized for the study. A dose lowering technique was utilized adhering to the principles o f ALARA. FINDINGS: No acute intracranial hemorrhage, midline shift or mass effect is present. The ventricular system is stable. White matter hypodensities are unchanged and favor small vessel disease. An 8 mm hy podense focus within the right thalamus is unchanged from earlier exams. The basal cisterns are paten t. No extra-axial collections are present. There are no findings to suggest acute dural sinus thrombo sis or acute territorial infarct. No significant calvarial abnormalities are present. Visualized port ions of the sinuses and mastoid air cells are clear. IMPRESSION: No acute intracranial findings. No change in appearance of the brain. ACT 112: Negative or not required by law. Electronically signed by: Mu Bonds M.D. 05/29/2024 10:20 AM
[2024-05-29] MEDS: POT PHOSPHATE MONOBASIC W/ SOD TAB PO SCH (10:38)
--- NOTE | 2024-05-29 13:59 | Hospitalist Progress Note ---
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 History of frequent UTIs, had an abnormal UA in the ED Last suprapubic cath change was 04/08/24. On admission, Labs were significant for creatinine of 1.68 (baseline 1.1), potassium 2.9, initial troponin 28.2, repeat troponin 29.0. Acute metabolic encephalopathy--POA Delirium CAUTI--POA Recurrent UTIs Suspected sepsis Confusion multifactorial likely secondary to UTI and medications probably contributing --CT head:No acute intracranial abnormality. No hypercarbia on VBG Normal ammonia level, TSH levels on admission No significant Uremia Urine culture growing Enterococcus and Pseudomonas Was initially on meropenem, changed to daptomycin on 05/26/24 Zosyn added on 05/28/24 Will appreciate ID guidance with Abx mgt Suprapubic mejia already changed by Urology Psych eval and recs noted. Hydroxyzine and gabapentin were stopped. Trazodone increased to 100mg HS On 05/27/24, I called daughter and updated her. She stated patient was not on hydroxyzine at home so that was removed from her home admission med rec. She also reported patient does get hospital delirium Updated daughter on the phone today She reported patient was on lactulose TID at home. This was not documented on her admitting med rec. Home med rec was updated and lactulose started to ensure 3 BM per day Check ammonia level as hepatic encephalopathy may be contributing to persistent AMS Acute kidney injury on CKD III Acute on chronic hyponatremia Got IVF Creatinine improved 1.12 today Avoid nephrotoxic agents as able Monitor renal function, sodium levels Hyponatremia resolved Replete hypokalemia and hypophosphatemia Monitor Chronic troponin elevation In setting of CEE/CKD TTE showed EF >70%, mild conc LVH, no regional wall motion abnormalities, RV size and function grossly normal Insulin-requiring DM II Diabetic neuropathy Basal insulin with sliding scale coverage Diabetic diet BSG ACHS Coronary artery disease Bipolar, anxiety disorder GONZALEZ cirrhosis Hypertension HFpEF GERD Continue other home medications as appropriate. Psychiatry recs noted and meds changed as above Code status: Full code DVT Px Heparin SQ I spent a total of 50 minutes coordinating, documenting and providing care for this patient excluding time spent in performance of separately billed services Admission and Anticipated Discharge Date Admission Date: May 24, 2024 Subjective Patient seen and examined She is alert and oriented to person only Still Confused. Physical Exam Constitutional: + well hydrated; no acute distress Eyes: PERRL, conjunctivae normal, anicteric sclerae ENMT: external ear and nose normal, oropharynx normal Respiratory: normal respiratory effort, lungs clear to auscultation Cardiovascular: Rate/Rhythm: regular rate and regular rhythm Gastrointestinal (Abdomen): normal bowel sounds, soft, nontender, no hepatosplenomegaly Musculoskeletal: No pedal edema Neurologic: PERRL, EOMI, accommodation nl, no face palsy, no dysarthria Psychiatric: Alert,oriented to person only. Confused Results & Data Results & Data Vital Signs (Past 12 Hours) Vital Signs Temp Pulse Pulse Resp BP Pulse Ox O2 Del Method 05/29/24 11:59 70 18 138/83 95 Room Air 05/29/24 07:54 69 05/29/24 07:45 36.6 C 71 18 104/69 94 Room Air 05/29/24 07:30 Room Air 05/29/24 04:09 36.6 C 70 20 117/73 96 Room Air Laboratory Results Abnormal lab results 05/28/24 05/28/24 05/29/24 Range/Units 17:08 20:22 05:57 Hgb 11.7 L (12.0-16.0) g/dl Hct 34.6 L (37.0-47.0) % RDW Std Deviation 49.1 H (36.4-46.3) fL RDW Coeff of Guillermo 17.1 H (11.5-14.5) % Plt Count 93 L (130-400) K/uL Potassium 3.4 L (3.5-5.1) mmol/L POC Glucose 127 H 114 H (70-99) mg/dl Phosphorus 2.2 L (2.5-4.9) mg/dl 05/29/24 05/29/24 Range/Units 07:59 12:06 Hgb (12.0-16.0) g/dl Hct (37.0-47.0) % RDW Std Deviation (36.4-46.3) fL RDW Coeff of Guillermo (11.5-14.5) % Plt Count (130-400) K/uL Potassium (3.5-5.1) mmol/L POC Glucose 107 H 143 H (70-99) mg/dl Phosphorus (2.5-4.9) mg/dl (5) (HFpEF) heart failure with preserved ejection fraction Heart failure chronicity: chronic Qualified Code(s): I50.32 - Chronic diastolic (congestive) heart failure (6) CAD (coronary artery disease), [place] coronary artery [place] vs. transplanted heart: [place] heart Associated angina: without angina Qualified Code(s): I25.10 - Atherosclerotic heart disease of [place] coronary artery without angina pectoris (7) DM type 2 (diabetes mellitus, type 2) Diabetes mellitus watcher [employer] insulin use: with snf use Diabetes mellitus complication status: with neurologic complications Diabetes mellitus complication detail: with unspecified neuropathy Qualified Code(s): E11.40 - Type 2 diabetes mellitus with diabetic neuropathy, unspecified; Z79.4 - long term care pharmacist (current) use of insulin (8) Hypertension Hypertension type: unspecified Qualified Code(s): I10 - Essential (primary) hypertension (9) Bipolar disorder Active/Remission status: remission status unspecified Qualified Code(s): F31.9 - Bipolar disorder, unspecified
[2024-05-29] MEDS: LACTULOSE SYRUP 20 GM/30 ML UDC PO SCH (15:30)
[2024-05-30 08:12] LABS: Hematocrit (blood only) 34.4 % (37.0-47.0); Hemoglobin 11.5 g/dl (12.0-16.0); Mean Corpuscular Hemoglobin 27.6 pg (25.0-34.0); Mean Corpuscular Hgb Conc 33.4 g/dL (32.0-36.0); Mean Corpuscular Volume 82.5 fL (80.0-100.0); Mean Platelet Volume 10.6 fL (9.4-12.4); Platelet Count 101 K/uL (130-400); RDW Coefficient of Variation 17.3 % (11.5-14.5); RDW Standard Deviation 50.1 fL (36.4-46.3); Red Blood Count 4.17 M/uL (4.20-5.40); White Blood Count 5.83 K/ul (4.8-10.8)
[2024-05-30 08:27] LABS: BUN Creatinine Ratio 8.2 (10-20); Calcium 8.4 mg/dl (8.6-10.3); Creatinine Clr Calc Pharmacy 64.2 ml/min; Phosphorus 3.8 mg/dl (2.5-4.9); Potassium 3.5 mmol/L (3.5-5.1)
--- NOTE | 2024-05-30 11:10 | Hospitalist Progress Note ---
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 History of frequent UTIs, had an abnormal UA in the ED Last suprapubic cath change was 04/08/24. On admission, Labs were significant for creatinine of 1.68 (baseline 1.1), potassium 2.9, initial troponin 28.2, repeat troponin 29.0. Acute metabolic encephalopathy--POA Delirium CAUTI--POA Recurrent UTIs Suspected sepsis Confusion multifactorial likely secondary to UTI and medications probably contributing --CT head:No acute intracranial abnormality. No hypercarbia on VBG Normal ammonia level, TSH levels on admission No significant Uremia Urine culture growing Enterococcus and Pseudomonas Was initially on meropenem, changed to daptomycin on 05/26/24 Zosyn added on 05/28/24 Will appreciate ID guidance with Abx mgt Suprapubic mejia already changed by Urology Psych eval and recs noted. Hydroxyzine and gabapentin were stopped. Trazodone increased to 100mg HS On 05/27/24, I called daughter and updated her. She stated patient was not on hydroxyzine at home so that was removed from her home admission med rec. She also reported patient does get hospital delirium Acute kidney injury on CKD III Acute on chronic hyponatremia Got IVF Creatinine improved 0.98 today Avoid nephrotoxic agents as able Monitor renal function, sodium levels Hyponatremia resolved Replete hypokalemia and hypophosphatemia Monitor Chronic troponin elevation In setting of CEE/CKD TTE showed EF >70%, mild conc LVH, no regional wall motion abnormalities, RV size and function grossly normal Insulin-requiring DM II Diabetic neuropathy Basal insulin with sliding scale coverage Diabetic diet BSG ACHS Coronary artery disease Bipolar, anxiety disorder GONZALEZ cirrhosis Hypertension HFpEF GERD Continue other home medications as appropriate. Psychiatry recs noted and meds changed as above Code status: Full code DVT Px Heparin SQ I spent a total of 40 minutes coordinating, documenting and providing care for this patient excluding time spent in performance of separately billed services Admission and Anticipated Discharge Date Admission Date: May 24, 2024 Subjective Patient seen and examined She is alert and oriented to person only. Confused but cooperative Physical Exam Constitutional: + well hydrated; no acute distress Eyes: PERRL, conjunctivae normal, anicteric sclerae ENMT: external ear and nose normal, oropharynx normal Respiratory: normal respiratory effort, lungs clear to auscultation Cardiovascular: Rate/Rhythm: regular rate and regular rhythm Gastrointestinal (Abdomen): normal bowel sounds, soft, nontender, no hepatosplenomegaly Musculoskeletal: No pedal edema Neurologic: PERRL, EOMI, accommodation nl, no face palsy, no dysarthria Psychiatric: Alert and oriented to person only. Confused Genitourinary: Suprapubic mejia Results & Data Results & Data Vital Signs (Past 12 Hours) Vital Signs Temp Pulse Pulse Resp BP Pulse Ox O2 Del Method 05/30/24 07:35 Room Air 05/30/24 07:18 36.6 C 66 18 96/58 L 93 Room Air 05/30/24 03:31 36.6 C 61 20 120/78 93 Room Air 05/30/24 00:00 77 05/29/24 23:16 36.8 C 79 20 124/75 92 Room Air Laboratory Results Abnormal lab results 05/29/24 05/29/24 05/30/24 Range/Units 16:50 20:09 07:51 RBC 4.17 L (4.20-5.40) M/uL Hgb 11.5 L (12.0-16.0) g/dl Hct 34.4 L (37.0-47.0) % RDW Std Deviation 50.1 H (36.4-46.3) fL RDW Coeff of Guillermo 17.3 H (11.5-14.5) % Plt Count 101 L (130-400) K/uL BUN/Creatinine Ratio 8.2 L (10-20) Glucose 132 H (70-99(Fasting)) mg/dl POC Glucose 115 H 115 H (70-99) mg/dl Calcium 8.4 L (8.6-10.3) mg/dl 05/30/24 05/30/24 Range/Units 08:07 12:08 RBC (4.20-5.40) M/uL Hgb (12.0-16.0) g/dl Hct (37.0-47.0) % RDW Std Deviation (36.4-46.3) fL RDW Coeff of Guillermo (11.5-14.5) % Plt Count (130-400) K/uL BUN/Creatinine Ratio (10-20) Glucose (70-99(Fasting)) mg/dl POC Glucose 137 H 128 H (70-99) mg/dl Calcium (8.6-10.3) mg/dl (5) (HFpEF) heart failure with preserved ejection fraction Heart failure chronicity: chronic Qualified Code(s): I50.32 - Chronic diastolic (congestive) heart failure (6) CAD (coronary artery disease), [place] coronary artery [place] vs. transplanted heart: [place] heart Associated angina: without angina Qualified Code(s): I25.10 - Atherosclerotic heart disease of [place] coronary artery without angina pectoris (7) DM type 2 (diabetes mellitus, type 2) Diabetes mellitus fdc insulin use: with fdc use Diabetes mellitus complication status: with neurologic complications Diabetes mellitus complication detail: with unspecified neuropathy Qualified Code(s): E11.40 - Type 2 diabetes mellitus with diabetic neuropathy, unspecified; Z79.4 - oil heaterman (current) use of insulin (8) Hypertension Hypertension type: unspecified Qualified Code(s): I10 - Essential (primary) hypertension (9) Bipolar disorder Active/Remission status: remission status unspecified Qualified Code(s): F31.9 - Bipolar disorder, unspecified
[2024-05-31 08:33] LABS: Hematocrit (blood only) 33.1 % (37.0-47.0); Hemoglobin 11.2 g/dl (12.0-16.0); Mean Corpuscular Hemoglobin 27.9 pg (25.0-34.0); Mean Corpuscular Hgb Conc 33.8 g/dL (32.0-36.0); Mean Corpuscular Volume 82.5 fL (80.0-100.0); Mean Platelet Volume 10.4 fL (9.4-12.4); Platelet Count 109 K/uL (130-400); RDW Coefficient of Variation 17.5 % (11.5-14.5); RDW Standard Deviation 51.4 fL (36.4-46.3); Red Blood Count 4.01 M/uL (4.20-5.40); White Blood Count 5.37 K/ul (4.8-10.8)
[2024-05-31 08:57] LABS: BUN Creatinine Ratio 6.3 (10-20); Calcium 8.5 mg/dl (8.6-10.3); Creatinine Clr Calc Pharmacy 65.1 ml/min; Potassium 3.7 mmol/L (3.5-5.1)
--- NOTE | 2024-05-31 11:04 | Hospitalist Progress Note ---
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 History of frequent UTIs, had an abnormal UA in the ED Last suprapubic cath change was 04/08/24. On admission, Labs were significant for creatinine of 1.68 (baseline 1.1), potassium 2.9, initial troponin 28.2, repeat troponin 29.0. Acute metabolic encephalopathy--POA Delirium CAUTI--POA Recurrent UTIs Sepsis Confusion multifactorial likely secondary to UTI and medications probably contributing --CT head:No acute intracranial abnormality. No hypercarbia on VBG Normal ammonia level, TSH levels on admission No significant Uremia Urine culture growing Enterococcus and Pseudomonas Was initially on meropenem, changed to daptomycin on 05/26/24 Zosyn added on 05/28/24 Suprapubic mejia already changed by Urology on 05/26/24 Discussed patient with ID Dr Wall today. He recommends to continue zosyn and dapto while inpatient and change to linezolid 600mg PO BID and Cipro 750mg PO BID to complete a course of 14 days total Psych eval and recs noted. Hydroxyzine and gabapentin were stopped. Trazodone increased to 100mg HS On 05/27/24, I called daughter and updated her. She stated patient was not on hydroxyzine at home so that was removed from her home admission med rec. She also reported patient does get hospital delirium Acute kidney injury on CKD III Acute on chronic hyponatremia Got IVF Creatinine improved 0.96 today Avoid nephrotoxic agents as able Monitor renal function, sodium levels Hyponatremia resolved Chronic troponin elevation In setting of CEE/CKD TTE showed EF >70%, mild conc LVH, no regional wall motion abnormalities, RV size and function grossly normal Insulin-requiring DM II Diabetic neuropathy Basal insulin with sliding scale coverage Diabetic diet BSG ACHS Coronary artery disease Bipolar, anxiety disorder GONZALEZ cirrhosis Hypertension HFpEF GERD Continue other home medications as appropriate. Psychiatry recs noted and meds changed as above Code status: Full code DVT Px Heparin SQ Call to daughter today went to [employer]. Will try again later I spent a total of 40 minutes coordinating, documenting and providing care for this patient excluding time spent in performance of separately billed services Admission and Anticipated Discharge Date Admission Date: May 24, 2024 Subjective Patient seen and examined No new complaints Patient is alert, oriented to person only. Confused Physical Exam Constitutional: + well hydrated; no acute distress Eyes: PERRL, conjunctivae normal, anicteric sclerae ENMT: external ear and nose normal, oropharynx normal Respiratory: normal respiratory effort, lungs clear to auscultation Cardiovascular: Rate/Rhythm: regular rate and regular rhythm Gastrointestinal (Abdomen): normal bowel sounds, soft, nontender, no hepatosplenomegaly Musculoskeletal: No pedal edema Neurologic: PERRL, EOMI, accommodation nl, no face palsy, no dysarthria Psychiatric: Alert and oriented to person only. Confused Genitourinary: Suprapubic mejia Results & Data Results & Data Vital Signs (Past 12 Hours) Vital Signs Temp Pulse Pulse Resp BP Pulse Ox O2 Del Method 05/31/24 10:47 65 05/31/24 07:24 36.6 C 65 18 107/68 96 Room Air 05/31/24 03:56 36.4 C L 65 20 108/69 95 Room Air 05/30/24 23:53 36.4 C L 64 20 115/70 97 Room Air Laboratory Results Abnormal lab results 05/30/24 05/30/24 05/31/24 Range/Units 16:58 20:51 07:33 RBC (4.20-5.40) M/uL Hgb (12.0-16.0) g/dl Hct (37.0-47.0) % RDW Std Deviation (36.4-46.3) fL RDW Coeff of Guillermo (11.5-14.5) % Plt Count (130-400) K/uL BUN/Creatinine Ratio (10-20) Glucose (70-99(Fasting)) mg/dl POC Glucose 102 H 142 H 105 H (70-99) mg/dl Calcium (8.6-10.3) mg/dl 05/31/24 05/31/24 Range/Units 08:04 11:55 RBC 4.01 L (4.20-5.40) M/uL Hgb 11.2 L (12.0-16.0) g/dl Hct 33.1 L (37.0-47.0) % RDW Std Deviation 51.4 H (36.4-46.3) fL RDW Coeff of Guillermo 17.5 H (11.5-14.5) % Plt Count 109 L (130-400) K/uL BUN/Creatinine Ratio 6.3 L (10-20) Glucose 110 H (70-99(Fasting)) mg/dl POC Glucose 179 H (70-99) mg/dl Calcium 8.5 L (8.6-10.3) mg/dl (5) (HFpEF) heart failure with preserved ejection fraction Heart failure chronicity: chronic Qualified Code(s): I50.32 - Chronic diastolic (congestive) heart failure (6) CAD (coronary artery disease), [place] coronary artery [place] vs. transplanted heart: [place] heart Associated angina: without angina Qualified Code(s): I25.10 - Atherosclerotic heart disease of [place] coronary artery without angina pectoris (7) DM type 2 (diabetes mellitus, type 2) Diabetes mellitus senior living insulin use: with long term care social worker use Diabetes mellitus complication status: with neurologic complications Diabetes mellitus complication detail: with unspecified neuropathy Qualified Code(s): E11.40 - Type 2 diabetes mellitus with diabetic neuropathy, unspecified; Z79.4 - long term care administrator (current) use of insulin (8) Hypertension Hypertension type: unspecified Qualified Code(s): I10 - Essential (primary) hypertension (9) Bipolar disorder Active/Remission status: remission status unspecified Qualified Code(s): F31.9 - Bipolar disorder, unspecified
--- NOTE | 2024-06-01 11:21 | Hospitalist Progress Note ---
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 History of frequent UTIs, had an abnormal UA in the ED Last suprapubic cath change was 04/08/24. On admission, Labs were significant for creatinine of 1.68 (baseline 1.1), potassium 2.9, initial troponin 28.2, repeat troponin 29.0. Acute metabolic encephalopathy--POA Delirium CAUTI--POA Recurrent UTIs Sepsis Confusion multifactorial likely secondary to UTI and medications probably contributing --CT head:No acute intracranial abnormality. No hypercarbia on VBG Normal ammonia level, TSH levels on admission No significant Uremia Urine culture growing Enterococcus and Pseudomonas Was initially on meropenem, changed to daptomycin on 05/26/24 Zosyn added on 05/28/24 Suprapubic mejia already changed by Urology on 05/26/24 Discussed patient with ID Dr Wall on 05/31/24. He recommended to continue zosyn and dapto while inpatient and change to linezolid 600mg PO BID and Cipro 750mg PO BID to complete a course of 14 days total Psych eval and recs noted. Hydroxyzine and gabapentin were stopped. Trazodone increased to 100mg HS On 05/27/24, I called daughter and updated her. She stated patient was not on hydroxyzine at home so that was removed from her home admission med rec. She also reported patient does get hospital delirium Acute kidney injury on CKD III Acute on chronic hyponatremia Got IVF CEE resolved Avoid nephrotoxic agents as able Monitor renal function, sodium levels Hyponatremia resolved Chronic troponin elevation In setting of CEE/CKD TTE showed EF >70%, mild conc LVH, no regional wall motion abnormalities, RV size and function grossly normal Insulin-requiring DM II Diabetic neuropathy Basal insulin with sliding scale coverage Diabetic diet BSG ACHS Coronary artery disease Bipolar, anxiety disorder GONZALEZ cirrhosis Hypertension HFpEF GERD Continue other home medications as appropriate. Psychiatry recs noted and meds changed as above Code status: Full code DVT Px Heparin SQ Call to daughter and updated her PT/OT had recommended rehab but daughter stated they have enough help at home to do rehab at home. Patient currently will require Loli Lift for family to get her out of bed. She reported they have hospital bed but will need loli lift CM notified. CM working on getting Loli lift Plan for dc tomorrow once CM arrange I spent a total of 50 minutes coordinating, documenting and providing care for this patient excluding time spent in performance of separately billed services Admission and Anticipated Discharge Date Admission Date: May 24, 2024 Subjective Patient seen and examined Denied any complaints Physical Exam Constitutional: + well hydrated; no acute distress Eyes: PERRL, conjunctivae normal, anicteric sclerae ENMT: external ear and nose normal, oropharynx normal Respiratory: normal respiratory effort, lungs clear to auscultation Cardiovascular: Rate/Rhythm: regular rate and regular rhythm Gastrointestinal (Abdomen): normal bowel sounds, soft, nontender, no hepatosplenomegaly Musculoskeletal: No pedal edema Neurologic: PERRL, EOMI, accommodation nl, no face palsy, no dysarthria Psychiatric: Alert and oriented to person only. Confused Genitourinary: Suprapubic mejia Results & Data Results & Data Vital Signs (Past 12 Hours) Vital Signs Temp Pulse Pulse Resp BP Pulse Ox O2 Del Method 06/01/24 08:12 36.3 C L 64 18 91/55 L 98 Room Air 06/01/24 08:00 Room Air 06/01/24 07:00 64 06/01/24 04:00 36.4 C L 67 16 106/68 98 Room Air 05/31/24 23:59 36.3 C L 66 16 96/66 L 94 Room Air (5) (HFpEF) heart failure with preserved ejection fraction Heart failure chronicity: chronic Qualified Code(s): I50.32 - Chronic diastolic (congestive) heart failure (6) CAD (coronary artery disease), [place] coronary artery [place] vs. transplanted heart: [place] heart Associated angina: without angina Qualified Code(s): I25.10 - Atherosclerotic heart disease of [place] coronary artery without angina pectoris (7) DM type 2 (diabetes mellitus, type 2) Diabetes mellitus oil heaterman insulin use: with oil heaterman use Diabetes mellitus complication status: with neurologic complications Diabetes mellitus complication detail: with unspecified neuropathy Qualified Code(s): E11.40 - Type 2 diabetes mellitus with diabetic neuropathy, unspecified; Z79.4 - termite exterminator (current) use of insulin (8) Hypertension Hypertension type: unspecified Qualified Code(s): I10 - Essential (primary) hypertension (9) Bipolar disorder Active/Remission status: remission status unspecified Qualified Code(s): F31.9 - Bipolar disorder, unspecified
[2024-06-02 08:08] LABS: Hematocrit (blood only) 33.5 % (37.0-47.0); Mean Corpuscular Hemoglobin 27.6 pg (25.0-34.0); Mean Corpuscular Hgb Conc 32.8 g/dL (32.0-36.0); Mean Corpuscular Volume 84.2 fL (80.0-100.0); Mean Platelet Volume 10.3 fL (9.4-12.4); Platelet Count 120 K/uL (130-400); RDW Coefficient of Variation 17.6 % (11.5-14.5); RDW Standard Deviation 53.1 fL (36.4-46.3); Red Blood Count 3.98 M/uL (4.20-5.40); White Blood Count 5.55 K/ul (4.8-10.8)
[2024-06-02 08:15] LABS: BUN Creatinine Ratio 6.3 (10-20); Calcium 8.8 mg/dl (8.6-10.3); Creatinine Clr Calc Pharmacy 55.6 ml/min; Potassium 4.3 mmol/L (3.5-5.1)
--- NOTE | 2024-06-02 10:37 | Hospitalist Progress Note ---
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 History of frequent UTIs, had an abnormal UA in the ED Last suprapubic cath change was 04/08/24. On admission, Labs were significant for creatinine of 1.68 (baseline 1.1), potassium 2.9, initial troponin 28.2, repeat troponin 29.0. Acute metabolic encephalopathy--POA Delirium CAUTI--POA Recurrent UTIs Sepsis Confusion multifactorial likely secondary to UTI and medications probably contributing --CT head:No acute intracranial abnormality. No hypercarbia on VBG Normal ammonia level, TSH levels on admission No significant Uremia Urine culture growing Enterococcus and Pseudomonas Was initially on meropenem, changed to daptomycin on 05/26/24 Zosyn added on 05/28/24 Suprapubic mejia already changed by Urology on 05/26/24 Discussed patient with ID Dr Wall on 05/31/24. He recommended to continue zosyn and dapto while inpatient and change to linezolid 600mg PO BID and Cipro 750mg PO BID to complete a course of 14 days total Psych eval and recs noted. Hydroxyzine and gabapentin were stopped. Trazodone increased to 100mg HS On 05/27/24, I called daughter and updated her. She stated patient was not on hydroxyzine at home so that was removed from her home admission med rec. She also reported patient does get hospital delirium 06/02/24- Patient with increased drowsiness in the AM. Held her morning lorazepam. Repeat ammonia level negative. Repeat UA ordered. Delirium precautions. Frequent reorientation, avoid sedating medications as able. Acute kidney injury on CKD III Acute on chronic hyponatremia Got IVF CEE resolved Avoid nephrotoxic agents as able Monitor renal function, sodium levels Hyponatremia resolved Chronic troponin elevation In setting of CEE/CKD TTE showed EF >70%, mild conc LVH, no regional wall motion abnormalities, RV size and function grossly normal Insulin-requiring DM II Diabetic neuropathy Basal insulin with sliding scale coverage Diabetic diet BSG ACHS Coronary artery disease Bipolar, anxiety disorder GONZALEZ cirrhosis Hypertension HFpEF GERD Continue other home medications as appropriate. Psychiatry recs noted and meds changed as above Code status: Full code DVT Px: Heparin SQ Dispo: Discharge home for 24 hr care with daughter, plans for cash lift Admission and Anticipated Discharge Date Admission Date: May 24, 2024 Subjective patient was seen in the morning. Was very lethargic and sleepy. Was able to be awakened but would quickly fall back asleep. Alert and oriented x 1. Per nursing staff this has been her baseline this admis herminio. Discussion with daughter via telephone and agreeable to further evaluation of mental status once more. Review of Systems Review of Systems: All systems reviewed & are unremarkable except as noted in Subjective Physical Exam Physical Exam: General: drowsy Psych: mood and affect could not be determined Neuro: drowsy HEENT: NC/AT CV: RRR Resp: no increased effort of breathing Abdomen:Soft, nontender Extremities: edema in lower extremities bilaterally. Results & Data Results & Data Vital Signs (Past 12 Hours) Vital Signs Temp Pulse Pulse Resp BP Pulse Ox O2 Del Method 06/02/24 08:16 36.3 C L 66 18 103/59 L 99 Room Air 06/02/24 07:29 63 06/02/24 03:19 36.4 C L 66 18 110/64 96 Room Air 06/01/24 23:58 36.3 C L 75 20 119/79 96 Room Air 06/01/24 23:51 Room Air Diagnostic Findings Chest X-Ray 05/24/24 11:07 XR chest 1V portable CLINICAL HISTORY: Chest pain, nonspecific COMPARISON STUDY: Chest radiograph and chest CT April 20, 2024. FINDINGS: Elevation of the right hemidiaphragm is unchanged. Low lung volumes are again noted. There are median sternotomy wires. Cardiomediastinal silhouette is stable. There is no lobar consolidation. There is no evidence for pulmonary edema. There is no pneumothorax or pleural effusion. IMPRESSION: 1. No acute cardiopulmonary findings. 2. No change in low lung volumes with elevation of the right hemidiaphragm. ACT 112: Negative or not required by law. Electronically signed by: Mu Bonds M.D. 05/24/2024 11:[address] 05/24/24 11:16 CT head/brain wo con CLINICAL HISTORY: 73 years-old Female with russell. Acute headache TECHNIQUE: Multiple axial CT images of the head were obtained without contrast. A dose lowering technique was utilized adhering to the principles of ALARA. CT DOSE: 703.85 mGy.cm COMPARISON: 04/20/2024 FINDINGS: No acute intracranial hemorrhage, midline shift, intracranial mass, hydrocephalus, territorial ischemia or abnormal extra-axial collection. Involutional changes with chronic microvascular ischemic disease and cerebral vascular calcifications. Unchanged appearance of the chronic right basal ganglia lacunar infarct. The calvarium is intact. The paranasal sinuses, mastoid air cells, and middle ear cavities are clear. IMPRESSION: No acute intracranial abnormality. ACT 112: Negative or not required by law. The above report was generated using voice recognition software. It may contain grammatical, syntax or spelling errors. Electronically signed by: Tommie Loredo M.D. 05/24/2024 11:[address] 05/29/24 09:26 CT OF THE HEAD WITHOUT CONTRAST CLINICAL HISTORY: Persistent AMS. Reassess COMPARISON STUDY: Head CT May 24, 2024. CT DOSE: 2420.97 mGy.cm TECHNIQUE: Helical axial images of the head were obtained without IV contrast. Automated exposure control was utilized for the study. A dose lowering technique was utilized adhering to the principles of ALARA. FINDINGS: No acute intracranial hemorrhage, midline shift or mass effect is present. The ventricular system is stable. White matter hypodensities are unchanged and favor small vessel disease. An 8 mm hypodense focus within the right thalamus is unchanged from earlier exams. The basal cisterns are patent. No extra-axial collections are present. There are no findings to suggest acute dural sinus thrombosis or acute territorial infarct. No significant calvarial abnormalities are present. Visualized portions of the sinuses and mastoid air cells are clear. IMPRESSION: No acute intracranial findings. No change in appearance of the brain. ACT 112: Negative or not required by law. Electronically signed by: Mu Bonds M.D. 05/29/2024 10:20 AM (5) (HFpEF) heart failure with preserved ejection fraction Heart failure chronicity: chronic Qualified Code(s): I50.32 - Chronic diastolic (congestive) heart failure (6) CAD (coronary artery disease), [place] coronary artery Associated angina: without angina [place] vs. transplanted heart: [place]reafski heart Qualified Code(s): I25.10 - Atherosclerotic heart disease of [place] coronary artery without angina pectoris (7) DM type 2 (diabetes mellitus, type 2) Diabetes mellitus complication detail: with unspecified neuropathy Diabetes mellitus complication status: with neurologic complications Diabetes mellitus senior living insulin use: with intermediate manager use Qualified Code(s): E11.40 - Type 2 diabetes mellitus with diabetic neuropathy, unspecified; Z79.4 - MCFP (current) use of insulin (8) Hypertension Hypertension type: unspecified Qualified Code(s): I10 - Essential (primary) hypertension (9) Bipolar disorder Active/Remission status: remission status unspecified Qualified Code(s): F31.9 - Bipolar disorder, unspecified
[2024-06-02] MEDS: DAPTOmycin 325 MG in SYRINGE 0 ML IV SCH (18:38)
[2024-06-02 19:06] LABS: Appearance Urine Clear (Clear); Bacteria Urine Automated None Seen (None Seen); Bilirubin Urine Negative (Negative); Blood Urine Negative (Negative); Cast Urine Automated 0-2 /lpf (0-2); Color Urine Dark Yellow; Epithelial Cell Urine Auto 0-2 /hpf (0-2); Glucose Urine UA Negative (Negative); Ketones Urine 1+ (Negative); Leukocyte Esterase Urine 2+ (Negative); Nitrite Urine Negative (Negative); Protein Urine 1+ (Negative); Specific Gravity Urine 1.031 (1.000-1.030); Urobilinogen Urine Positive (Negative); WBC Urine Automated 21-50 /hpf (0-5)
[2024-06-03 06:00] LABS: Basophils # (auto) 0.03 K/uL (0.00-0.20); Basophils % (auto) 0.6 %; Hematocrit (blood only) 33.5 % (37.0-47.0); Immature Granulocytes # (auto) 0.07 K/uL (0.01-0.20); Immature Granulocytes % (auto) 1.4 %; Lymphocytes # (auto) 1.86 K/uL (1.20-3.40); Lymphocytes % (auto) 37.2 %; Mean Corpuscular Hemoglobin 27.6 pg (25.0-34.0); Mean Corpuscular Hgb Conc 32.8 g/dL (32.0-36.0); Mean Platelet Volume 9.8 fL (9.4-12.4); Monocytes # (auto) 0.45 K/uL (0.11-0.59); Neutrophils # (auto) 2.39 K/uL (1.40-6.50); Neutrophils % (auto) 47.8 %; Platelet Count 128 K/uL (130-400); RDW Coefficient of Variation 18.2 % (11.5-14.5); Red Blood Count 3.99 M/uL (4.20-5.40)
[2024-06-03 06:15] LABS: BUN Creatinine Ratio 7.1 (10-20); Calcium 8.9 mg/dl (8.6-10.3); Magnesium 2.1 mg/dl (1.7-2.4); Phosphorus 3.9 mg/dl (2.5-4.9); Potassium 4.2 mmol/L (3.5-5.1)
--- NOTE | 2024-06-03 11:49 | Hospitalist Progress Note ---
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 History of frequent UTIs, had an abnormal UA in the ED Last suprapubic cath change was 04/08/24. On admission, Labs were significant for creatinine of 1.68 (baseline 1.1), potassium 2.9, initial troponin 28.2, repeat troponin 29.0. Acute metabolic encephalopathy--POA Delirium CAUTI--POA Recurrent UTIs Sepsis Confusion multifactorial likely secondary to UTI and medications probably contributing --CT head:No acute intracranial abnormality. No hypercarbia on VBG Normal ammonia level, TSH levels on admission No significant Uremia Urine culture growing Enterococcus and Pseudomonas Was initially on meropenem, changed to daptomycin on 05/26/24 Zosyn added on 05/28/24 Suprapubic mejia already changed by Urology on 05/26/24 Discussed patient with ID Dr Wall on 05/31/24. He recommended to continue zosyn and dapto while inpatient and change to linezolid 600mg PO BID and Cipro 750mg PO BID to complete a course of 14 days total Psych eval and recs noted. Hydroxyzine and gabapentin were stopped. Trazodone increased to 100mg HS On 05/27/24, I called daughter and updated her. She stated patient was not on hydroxyzine at home so that was removed from her home admission med rec. She also reported patient does get hospital delirium 06/02/24- Patient with increased drowsiness in the AM. Held her morning lorazepam. Repeat ammonia level negative. Repeat UA ordered. Delirium precautions. Frequent reorientation, avoid sedating medications as able. - repeat UA unremarkable, no growth on repeat urine culture at this time. Her symptoms are likely related to delirium. Continue to monitor Acute kidney injury on CKD III Acute on chronic hyponatremia Got IVF CEE resolved Avoid nephrotoxic agents as able Monitor renal function, sodium levels Hyponatremia resolved Chronic troponin elevation In setting of CEE/CKD TTE showed EF >70%, mild conc LVH, no regional wall motion abnormalities, RV size and function grossly normal Insulin-requiring DM II Diabetic neuropathy Basal insulin with sliding scale coverage Diabetic diet BSG ACHS Coronary artery disease Bipolar, anxiety disorder GONZALEZ cirrhosis Hypertension HFpEF GERD Continue other home medications as appropriate. Psychiatry recs noted and meds changed as above Code status: Full code DVT Px: Heparin SQ Dispo: Discharge home for 24 hr care with daughter, plans for cash lift Admission and Anticipated Discharge Date Admission Date: May 24, 2024 Subjective patient was seen laying in bed Not alert and oriented to self today however more awake and responsive Review of Systems Review of Systems: All systems reviewed & are unremarkable except as noted in Subjective Physical Exam Physical Exam: General: drowsy Psych: mood and affect could not be determined Neuro: drowsy HEENT: NC/AT CV: RRR, +murmur Resp: no increased effort of breathing Abdomen:Soft, nontender Extremities: edema in lower extremities bilaterally. Results & Data Results & Data Vital Signs (Past 12 Hours) Vital Signs Temp Pulse Resp BP Pulse Ox O2 Del Method 06/03/24 07:43 36.7 C 63 12 110/64 95 Room Air 06/03/24 03:45 36.5 C 70 18 122/81 96 Room Air (5) (HFpEF) heart failure with preserved ejection fraction Heart failure chronicity: chronic Qualified Code(s): I50.32 - Chronic diastolic (congestive) heart failure (6) CAD (coronary artery disease), [place] coronary artery Associated angina: without angina [place] vs. transplanted heart: [place] heart Qualified Code(s): I25.10 - Atherosclerotic heart disease of [place] coronary artery without angina pectoris (7) DM type 2 (diabetes mellitus, type 2) Diabetes mellitus complication detail: with unspecified neuropathy Diabetes mellitus complication status: with neurologic complications Diabetes mellitus custodial insulin use: with custodial use Qualified Code(s): E11.40 - Type 2 diabetes mellitus with diabetic neuropathy, unspecified; Z79.4 - USP (current) use of insulin (8) Hypertension Hypertension type: unspecified Qualified Code(s): I10 - Essential (primary) hypertension (9) Bipolar disorder Active/Remission status: remission status unspecified Qualified Code(s): F31.9 - Bipolar disorder, unspecified
[2024-06-04 06:34] LABS: Basophils # (auto) 0.04 K/uL (0.00-0.20); Basophils % (auto) 0.8 %; Eosinophils # (auto) 0.14 K/uL (0.00-0.50); Eosinophils % (auto) 2.9 %; Hematocrit (blood only) 35.2 % (37.0-47.0); Hemoglobin 11.5 g/dl (12.0-16.0); Immature Granulocytes # (auto) 0.06 K/uL (0.01-0.20); Immature Granulocytes % (auto) 1.2 %; Lymphocytes # (auto) 1.61 K/uL (1.20-3.40); Mean Corpuscular Hemoglobin 27.6 pg (25.0-34.0); Mean Corpuscular Hgb Conc 32.7 g/dL (32.0-36.0); Mean Corpuscular Volume 84.4 fL (80.0-100.0); Mean Platelet Volume 9.4 fL (9.4-12.4); Monocytes # (auto) 0.43 K/uL (0.11-0.59); Monocytes % (auto) 8.8 %; Neutrophils % (auto) 53.3 %; Platelet Count 135 K/uL (130-400); RDW Coefficient of Variation 18.5 % (11.5-14.5); Red Blood Count 4.17 M/uL (4.20-5.40); White Blood Count 4.88 K/ul (4.8-10.8)
[2024-06-04 06:50] LABS: BUN Creatinine Ratio 7.1 (10-20); Calcium 8.9 mg/dl (8.6-10.3); Creatinine Clr Calc Pharmacy 56.1 ml/min; Phosphorus 3.8 mg/dl (2.5-4.9); Potassium 3.9 mmol/L (3.5-5.1)
--- NOTE | 2024-06-04 11:01 | Hospitalist Progress Note ---
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 History of frequent UTIs, had an abnormal UA in the ED Last suprapubic cath change was 04/08/24. On admission, Labs were significant for creatinine of 1.68 (baseline 1.1), potassium 2.9, initial troponin 28.2, repeat troponin 29.0. Acute metabolic encephalopathy--POA Delirium CAUTI--POA Recurrent UTIs Sepsis Confusion multifactorial likely secondary to UTI and medications probably contributing --CT head:No acute intracranial abnormality. No hypercarbia on VBG Normal ammonia level, TSH levels on admission No significant Uremia Urine culture growing Enterococcus and Pseudomonas Was initially on meropenem, changed to daptomycin on 05/26/24 Zosyn added on 05/28/24 Suprapubic mejia already changed by Urology on 05/26/24 Discussed patient with ID Dr Wall on 05/31/24. He recommended to continue zosyn and dapto while inpatient and change to linezolid 600mg PO BID and Cipro 750mg PO BID to complete a course of 14 days total Psych eval and recs noted. Hydroxyzine and gabapentin were stopped. Trazodone increased to 100mg HS On 05/27/24, I called daughter and updated her. She stated patient was not on hydroxyzine at home so that was removed from her home admission med rec. She also reported patient does get hospital delirium 06/02/24- Patient with increased drowsiness in the AM. Held her morning lorazepam. Repeat ammonia level negative. Repeat UA ordered. Delirium precautions. Frequent reorientation, avoid sedating medications as able. - repeat UA unremarkable, no growth on repeat urine culture at this time. Her symptoms are likely related to delirium. Continue to monitor 06/04/24- patient still confused And delirious. Family with Loli lift at home, anticipating discharge tomorrow. Family would like to take her home. Acute kidney injury on CKD III Acute on chronic hyponatremia Got IVF CEE resolved Avoid nephrotoxic agents as able Monitor renal function, sodium levels Hyponatremia resolved Chronic troponin elevation In setting of CEE/CKD TTE showed EF >70%, mild conc LVH, no regional wall motion abnormalities, RV size and function grossly normal Insulin-requiring DM II Diabetic neuropathy Basal insulin with sliding scale coverage Diabetic diet BSG ACHS Coronary artery disease Bipolar, anxiety disorder GONZALEZ cirrhosis Hypertension HFpEF GERD Continue other home medications as appropriate. Psychiatry recs noted and meds changed as above Code status: Full code DVT Px: Heparin SQ Dispo: Discharge home for 24 hr care with daughter, plans for loli lift Admission and Anticipated Discharge Date Admission Date: May 24, 2024 Subjective patient was seen laying in bed Alert but not oriented, trying to get out of bed Daughter called and updated, has Loli lift set up at home. Anticipating discharge home Review of Systems Review of Systems: All systems reviewed & are unremarkable except as noted in Subjective Physical Exam Physical Exam: General: drowsy Psych: mood and affect could not be determined Neuro: drowsy HEENT: NC/AT CV: RRR, +murmur Resp: no increased effort of breathing Abdomen:Soft, nontender Extremities: edema in lower extremities bilaterally. Results & Data Results & Data Vital Signs (Past 12 Hours) Vital Signs Temp Pulse Pulse Resp BP BP Pulse Ox 06/04/24 10:19 06/04/24 10:19 62 06/04/24 07:47 36.3 C L 61 17 115/75 96 06/04/24 03:37 36.5 C 65 18 110/65 96 06/03/24 23:30 36.7 C 72 20 121/60 95 06/03/24 23:19 O2 Del Method 06/04/24 10:19 Room Air 06/04/24 10:19 06/04/24 07:47 Room Air 06/04/24 03:37 Room Air 06/03/24 23:30 Room Air 06/03/24 23:19 Room Air (5) (HFpEF) heart failure with preserved ejection fraction Heart failure chronicity: chronic Qualified Code(s): I50.32 - Chronic diastolic (congestive) heart failure (6) CAD (coronary artery disease), [place] coronary artery Associated angina: without angina [place] vs. transplanted heart: [place] heart Qualified Code(s): I25.10 - Atherosclerotic heart disease of [place] coronary artery without angina pectoris (7) DM type 2 (diabetes mellitus, type 2) Diabetes mellitus complication detail: with unspecified neuropathy Diabetes mellitus complication status: with neurologic complications Diabetes mellitus longterm insulin use: with longterm use Qualified Code(s): E11.40 - Type 2 diabetes mellitus with diabetic neuropathy, unspecified; Z79.4 - intermediate designer (current) use of insulin (8) Hypertension Hypertension type: unspecified Qualified Code(s): I10 - Essential (primary) hypertension (9) Bipolar disorder Active/Remission status: remission status unspecified Qualified Code(s): F31.9 - Bipolar disorder, unspecified
[2024-06-05 07:12] LABS: Basophils # (auto) 0.03 K/uL (0.00-0.20); Basophils % (auto) 0.7 %; Eosinophils # (auto) 0.14 K/uL (0.00-0.50); Eosinophils % (auto) 3.1 %; Hematocrit (blood only) 32.6 % (37.0-47.0); Hemoglobin 10.7 g/dl (12.0-16.0); Immature Granulocytes # (auto) 0.07 K/uL (0.01-0.20); Immature Granulocytes % (auto) 1.5 %; Lymphocytes # (auto) 1.56 K/uL (1.20-3.40); Mean Corpuscular Hemoglobin 28.1 pg (25.0-34.0); Mean Corpuscular Hgb Conc 32.8 g/dL (32.0-36.0); Mean Corpuscular Volume 85.6 fL (80.0-100.0); Mean Platelet Volume 9.8 fL (9.4-12.4); Monocytes # (auto) 0.42 K/uL (0.11-0.59); Monocytes % (auto) 9.2 %; Neutrophils # (auto) 2.37 K/uL (1.40-6.50); Neutrophils % (auto) 51.5 %; Platelet Count 131 K/uL (130-400); RDW Coefficient of Variation 18.6 % (11.5-14.5); RDW Standard Deviation 56.3 fL (36.4-46.3); Red Blood Count 3.81 M/uL (4.20-5.40); White Blood Count 4.59 K/ul (4.8-10.8)
[2024-06-05 07:37] LABS: BUN Creatinine Ratio 10.9 (10-20); Blood Urea Nitrogen 13 mg/dl (6-23); Calcium 8.8 mg/dl (8.6-10.3); Carbon Dioxide 25 mmol/L (21-32); Glucose 112 mg/dl (70-99(Fasting)); Phosphorus 4.1 mg/dl (2.5-4.9)
[2024-06-05 07:52] LABS: Anion Gap 6 (3-11); Chloride 110 mmol/L (98-107); Sodium 141 mmol/L (136-145)
[2024-06-05 11:36] VITALS: BP 99/64; PULSE 69; RESP 16; TEMP 97.9; O2SAT 98
--- NOTE | 2024-06-05 11:42 | Discharge Summary ---
Discharge Summary Date of Service June 05, 2024 Principal Dx & Hospital Course #1 = Principal Diagnosis (1) Acute alteration in mental status: (2) Complicated UTI (urinary tract infection): (3) CEE (acute kidney injury): (4) Elevated troponin: (5) (HFpEF) heart failure with preserved ejection fraction: (6) CAD (coronary artery disease), [place] coronary artery: (7) DM type 2 (diabetes mellitus, type 2): (8) Hypertension: (9) Bipolar disorder: (10) Anxiety: (11) 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: (12) Hypokalemia: Plan 73 y/o female with PMHx significant for insulin-requiring DM2 with associated neuropathy and gastroparesis, CAD s/p CABG, GONZALEZ cirrhosis with portal hypertensive gastropathy, CKD3, COPD, chronic diastolic HF, moderate AoS, urinary incontinence w/ suprapubic catheter in place, Pdnrzkl-Dvtsq-Wtkzj Disease, who was brought to the ED from [facility] for confusion and weakness. History of frequent UTIs, had an abnormal UA in the ED. Last suprapubic cath change was 04/08/24 [employer]. Last change upon discharge was 05/26/24. On admission, Labs were significant for creatinine of 1.68 (baseline 1.1), potassium 2.9, initial troponin 28.2, repeat troponin 29.0. UA grew Enterococcus and Pseudomonas. Infectious disease was contacted and recommended discharge with linezolid 600 mg p.o. twice daily and Cipro 750 mg p.o. twice daily to complete a course of 14 days of treatment. The patient was discharged with another 7 days of oral antibiotics. She had persistent metabolic and toxic encephalopathy while hospitalized. Her ammonia levels were repeatedly checked and were within normal limits. she was seen by psychiatry who recommended medication changes such as discontinuing hydroxyzine as well as gabapentin and increasing her home trazodone dose to 100 mg nightly. Her confusion was likely related to her acute infection, polypharmacy as well as delirium. Outpatient neuropsych testing recommended to rule out underlying dementia. Her case was discussed multiple times with patient's daughter Carolyn who requested patient not be discharged to acute rehab. She noted that they will have 24-hour supervision at home and would like to take her home. Case management worked with the family to install a Loli lift at home. Patient was discharged on 06/05/24 with home health services to the 27/01 care of her family and left in stable condition. She was treated for the following: Acute metabolic encephalopathy--POA Delirium CAUTI--POA Recurrent UTIs Sepsis Confusion multifactorial likely secondary to UTI and medications probably contributing --CT head:No acute intracranial abnormality. No hypercarbia on VBG Normal ammonia level, TSH levels on admission No significant Uremia Urine culture grew Enterococcus and Pseudomonas Was initially on meropenem, changed to daptomycin on 05/26/24 Zosyn added on 05/28/24 Suprapubic mejia already changed by Urology on 05/26/24 Previous provider discussed patient with Infectious Disease provider Dr Wall on 05/31/24. He recommended to continue zosyn and dapto while inpatient and change to linezolid 600mg PO BID and Cipro 750mg PO BID to complete a course of 14 days total Psych was also consulted, appreciate recs -Hydroxyzine and gabapentin were stopped. Trazodone increased to 100mg HS -Per daughter, patient was not on hydroxyzine at home so that was removed from her home admission med rec. -She also reported patient does get hospital delirium patient remained with persistent confusion. Repeat ammonia levels were negative. Repeat urine analysis and culture with no significant growth. Delirium precautions were employed. Frequent reorientation, avoided sedating medications as able. Family with Loli lift at home with Case management assistance, requesting discharge home with Home Health services. Outpatient neuropsych testing recommended to rule out underlying dementia. PCP followup Acute kidney injury on CKD III Acute on chronic hyponatremia Creatinine elevated at 1.68 on 05/24, downtrended to normal limits Cr 1.1 on discharge Got IVF CEE resolved Avoid nephrotoxic agents as able Monitor renal function, sodium levels Hyponatremia resolved PCP followup for continued monitoring Chronic troponin elevation In setting of CEE/CKD TTE showed EF >70%, mild conc LVH, no regional wall motion abnormalities, RV size and function grossly normal Insulin-requiring DM II Diabetic neuropathy Basal insulin with sliding scale coverage while hospitalized Diabetic diet BSG ACHS Resume home regimen on discharge Coronary artery disease Bipolar, anxiety disorder GONZALEZ cirrhosis Hypertension HFpEF GERD Continue other home medications as appropriate. Psychiatry recs noted and meds changed as above Notes For Next Care Provider Medication Changes From Visit Per Psychiatry, discontinue home gabapentin and hydroxyzine. Increase trazodone dose to 100mg qhs Per Infectious Disease: Linezolid 600mg BID and ciprofloxacin 750mg BID x 14 days Admission HPI Per Admitting Provider This is a 73 y/o female with insulin-requiring DM2 with associated neuropathy and gastroparesis, CAD s/p CABG, GONZALEZ cirrhosis with portal hypertensive gastropathy, CKD3, COPD, chronic diastolic HF, moderate AoS, urinary incontinence w/ suprapubic catheter in place, Tzfpauk-Jveeg-Nkmuy Disease, and other history as outlined below who was brought to the ED today from [facility] for confusion and weakness since yesterday. History from the patient is essentially unobtainable other than she repeatedly states "I just don't feel well" but is unable to localize further. She denies pain at the present. Her outpatient [facility] chart was reviewed including most recent notes from PCP and urology. Pt was most recently admitted to [facility] 04/20-04/24/24 with acute hypoxic respiratory failure due to pneumonia. She was treated with doxycycline and IV ceftriaxone initially before transition to doxycycline and cefdinir at [facility]. She was able to be weaned off O2 before discharge. Since discharge, pt was seen in her PCP office and given a course of azithromycin due to worsening cough. Her daughter called into the PCP office today stating that pt was febrile yesterday with a temp of 102F though afrbile this morning. She was also noted to be more confused from baseline then became very lethargic this morning, which resulted in pt being brought to the ED. Additionally, pt has a history of frequent UTIs and follows with urology for suprapubic catheter, most recently changed on 04/08/24. Admission Exam Per Admitting Provider General: awake, alert, NAD HEENT: no scleral icterus, moist oral mucosa Neck: supple, trachea midline Heart: RRR Lungs: mildly diminished BS but clear Abdomen: soft, NT, +BS Skin: warm, dry, no jaundice Neurologic: oriented to person but not place or time, moving all extremities, unable to answer history questions Discharge Exam General: confused Psych: mood and affect could not be determined Neuro: confused, oriented to first name only HEENT: NC/AT CV: RRR, +murmur Resp: no increased effort of breathing Abdomen:Soft, nontender Extremities: edema in lower extremities bilaterally. Updated Medication List Medication Instructions Recorded Confirmed Type albuterol sulfate 90 mcg/actuation 2 inh inhalation Q6 PRN Shortness 02/07/23 05/24/24 History aerosol inhaler Of Breath Or Wheezing clonazepam 0.5 mg tablet 0.5 mg PO TID 02/07/23 05/24/24 History fluticasone propionate 50 2 spray intranasal DAILY 02/07/23 05/24/24 History mcg/actuation nasal spray,suspension (Flonase Allergy Relief) lamotrigine 100 mg tablet 100 mg PO UD 02/07/23 05/24/24 History (Lamictal) lamotrigine 25 mg tablet (Lamictal) 25 mg PO UD 02/07/23 05/24/24 History lamotrigine 25 mg tablet (Lamictal) 50 mg PO HS 02/07/23 05/24/24 History levothyroxine 88 mcg tablet 88 mcg PO QAM 02/07/23 05/24/24 History montelukast 10 mg tablet 10 mg PO DAILY 02/07/23 05/24/24 History nitroglycerin 0.4 mg sublingual 0.4 mg sublingual DIRECTED PRN 02/07/23 05/24/24 History tablet (Nitrostat) Chest Pain pantoprazole 40 mg tablet,delayed 40 mg PO AMPM 02/07/23 05/24/24 History release potassium chloride 20 mEq 20 meq PO QAM PRN when taking 02/07/23 05/24/24 History tablet,extended additional torsemide release(part/cryst) (Klor-Con M) rifaximin 550 mg tablet (Xifaxan) 550 mg PO BID 02/07/23 05/24/24 History tamsulosin 0.4 mg capsule 0.4 mg PO QAM 02/07/23 05/24/24 History torsemide 20 mg tablet 20 mg PO QAM 02/07/23 05/24/24 History venlafaxine 150 mg 150 mg PO UD 02/07/23 05/24/24 History capsule,extended release 24 hr venlafaxine 75 mg tablet,extended 75 mg PO UD 02/07/23 05/24/24 History release 24 hr insulin glargine 100 unit/mL 35 unit subcut BID 05/09/23 05/24/24 History subcutaneous solution (Lantus U-100 Insulin) ascorbic acid (vitamin C) 500 mg 500 mg PO AMHS 05/12/23 05/24/24 History tablet (Vitamin C) aspirin 81 mg tablet,delayed 81 mg PO QAM 05/12/23 05/24/24 History release dicyclomine 10 mg capsule 10 mg PO QID PRN Abdominal Pain 05/12/23 05/24/24 History metformin 500 mg tablet,extended 500 mg PO QDD 05/12/23 05/24/24 History release 24 hr nystatin 100,000 unit/gram topical 1 applic topical TID 05/12/23 05/24/24 [place] powder [place] oxybutynin chloride 10 mg 10 mg PO QAM 05/12/23 05/24/24 History tablet,extended release 24 hr spironolactone 50 mg tablet 50 mg PO AMHS 05/12/23 05/24/24 History semaglutide 2 mg/dose (8 mg/3 mL) 2 mg subcut .WEEKLY 03/02/24 05/24/24 History subcutaneous pen injector (Ozempic) calcium 600 mg (as 1 tab PO DAILY #60 tabs 03/05/24 05/24/24 Rx carbonate)-vitamin D3 10 mcg (400 unit) tablet (Calcium 600 + D(3)) metoprolol succinate 25 mg 25 mg PO BID #60 tabs 03/05/24 05/24/24 Rx tablet,extended release 24 hr ferrous sulfate 325 mg (65 mg 325 mg PO QAM #30 tabs 04/24/24 05/24/24 Rx iron) tablet,delayed release nystatin 100,000 unit/mL oral 1 ml PO QID PRN oral thrush #40 mL 04/24/24 05/24/24 Rx suspension aripiprazole 5 mg tablet 5 mg PO DAILY 05/24/24 05/24/24 History cetirizine 10 mg tablet 10 mg PO DAILY 05/24/24 05/24/24 History ergocalciferol (vitamin D2) 1,250 50,000 unit PO WK 05/24/24 05/24/24 History mcg (50,000 unit) capsule famotidine 40 mg tablet 40 mg PO DAILY 05/24/24 05/24/24 History lactulose 20 gram/30 mL oral 20 g PO TID 05/29/24 05/29/24 History solution ciprofloxacin HCl 750 mg tablet 750 mg PO BID #14 tabs 06/05/24 Rx linezolid 600 mg tablet 600 mg PO BID #14 tabs 06/05/24 Rx trazodone 100 mg tablet 100 mg PO HS #30 tabs 06/05/24 Rx Hospital Stay Data Consultations 05/24/24 12:56 ED Decision to Admit Stat Diagnostic Imagining Performed 05/24/24 11:16 CT head/brain wo con Stat 05/29/24 09:26 CT head/brain wo con Urgent Chest X-Ray 05/24/24 11:07 XR chest 1V portable CLINICAL HISTORY: Chest pain, nonspecific COMPARISON STUDY: Chest radiograph and chest CT April 20, 2024. FINDINGS: Elevation of the right hemidiaphragm is unchanged. Low lung volumes are again noted. There are median sternotomy wires. Cardiomediastinal silhouette is stable. There is no lobar consolidation. There is no evidence for pulmonary edema. There is no pneumothorax or pleural effusion. IMPRESSION: 1. No acute cardiopulmonary findings. 2. No change in low lung volumes with elevation of the right hemidiaphragm. ACT 112: Negative or not required by law. Electronically signed by: Mu Bonds M.D. 05/24/2024 11:[address] 05/24/24 11:16 CT head/brain wo con CLINICAL HISTORY: 73 years-old Female with russell. Acute headache TECHNIQUE: Multiple axial CT images of the head were obtained without contrast. A dose lowering technique was utilized adhering to the principles of ALARA. CT DOSE: 703.85 mGy.cm COMPARISON: 04/20/2024 FINDINGS: No acute intracranial hemorrhage, midline shift, intracranial mass, hydrocephalus, territorial ischemia or abnormal extra-axial collection. Involutional changes with chronic microvascular ischemic disease and cerebral vascular calcifications. Unchanged appearance of the chronic right basal ganglia lacunar infarct. The calvarium is intact. The paranasal sinuses, mastoid air cells, and middle ear cavities are clear. IMPRESSION: No acute intracranial abnormality. ACT 112: Negative or not required by law. The above report was generated using voice recognition software. It may contain grammatical, syntax or spelling errors. Electronically signed by: Tommie Loredo M.D. 05/24/2024 11:[address] 05/29/24 09:26 CT OF THE HEAD WITHOUT CONTRAST CLINICAL HISTORY: Persistent AMS. Reassess COMPARISON STUDY: Head CT May 24, 2024. CT DOSE: 2420.97 mGy.cm TECHNIQUE: Helical axial images of the head were obtained without IV contrast. Automated exposure control was utilized for the study. A dose lowering technique was utilized adhering to the principles of ALARA. FINDINGS: No acute intracranial hemorrhage, midline shift or mass effect is present. The ventricular system is stable. White matter hypodensities are unchanged and favor small vessel disease. An 8 mm hypodense focus within the right thalamus is unchanged from earlier exams. The basal cisterns are patent. No extra-axial collections are present. There are no findings to suggest acute dural sinus thrombosis or acute territorial infarct. No significant calvarial abnormalities are present. Visualized portions of the sinuses and mastoid air cells are clear. IMPRESSION: No acute intracranial findings. No change in appearance of the brain. ACT 112: Negative or not required by law. Electronically signed by: Mu Bonds M.D. 05/29/2024 10:20 AM Discharge Instructions Given to Patient (Per Discharging Provider) Angelina, You were admitted and treated for a urinary tract infection with IV antibiotics. Your case was discussed with infectious disease who recommends discharge home with the antibiotics linezolid and ciprofloxacin to complete a total of 14 days of treatment. Please continue with these medications at home for the remaining 7 days. You are also very confused. You were seen by the psychiatrist who recommended that we discontinue your home hydroxyzine and gabapentin. They increased your dose of trazodone to 100 mg at bedtime. Please continue with these recommendat ions at home. After discussion with your family they deferred on an acute rehab stay and preferred to take you home. Please keep close follow up with your primary care provider after discharge. Please do not hesitate to come back to the emergency room if your symptoms worsen or return. It was a pleasure taking care of you while you were here. Total Time Total Time Spent Total Time Spent (In Minutes): 65
== END 2024-06-05 13:03 | disposition home health service (06) | DRG 698 ==
LOC: ED 10:38 → SUATTDRO 14:19 → EDINP 14:19 → 2W 17:51